=== PATIENT | female | born 1955 | race Caucasian/White ===

== ENCOUNTER 2022-12-29 15:04 | Outpatient (OUT) | payer OTHER, MEDICARE, SELFPAY ==
[2022-12-29 15:53] LABS: Estimated Average Glucose 229 mg/dL; Glycohemoglobin A1C 9.6 % (4.5-6.2)
== END 2022-12-29 15:05 ==
PROVIDERS: PCP Family Medicine; Visit Provider Family Medicine
DX: E11.9 Type 2 diabetes mellitus without complications (principal)
CPT/HCPCS: 36415; 83036

== ENCOUNTER 2022-12-29 15:15 | Outpatient (OUT) | payer OTHER, MEDICARE, SELFPAY ==
[2022-12-29 15:43] LABS: Erythrocyte Sedimentation Rate 11 mm/hr (<=30)
[2022-12-29 16:07] LABS: C Reactive Protein 0.4 mg/dL (<=1.0); Calcium 9.2 mg/dL (8.5-10.1); Estimated GFR (African America 55 (>=60); Estimated GFR (Non-African Ame 46 (>=60); Magnesium 1.7 mg/dL (1.8-2.4); Phosphorus 3.5 mg/dL (2.6-4.7)
== END 2022-12-29 15:16 ==
PROVIDERS: PCP Family Medicine
DX: E11.9 Type 2 diabetes mellitus without complications (principal); M15.0 Primary generalized (osteo)arthritis; M35.5 Multifocal fibrosclerosis; M31.6 Other giant cell arteritis; Z79.899 Other long term (current) drug therapy; M81.0 Age-related osteoporosis without current pathological fracture
CPT/HCPCS: 36415; 82310; 82565; 83036; 83735; 84100; 84520; 85652; 86140

== ENCOUNTER 2023-03-06 10:59 | Observation (INO) | payer OTHER, MEDICARE, SELFPAY ==
[2023-03-06] VITALS (30 sets, daily range): BP systolic 139–198; BP diastolic 76–98; PULSE 80–125; RESP 16–32; TEMP 36.5–36.8; O2SAT 95–100; BMI 20.9; BMI 20.6
--- NOTE | 2023-03-06 11:32 | ED_ITS ---
HPI - Weakness General Chief complaint: Weakness Stated complaint: WEAKNESS Time Seen by Provider: 03/06/23 11:32 Source: patient Mode of arrival: Wheelchair Limitations: no limitations History of Present Illness HPI Narrative: This document has been composed with a new electronic medical record and [employer] voice recognition system. This document may not fully inaccurately reflect the entirety of the patient encounter.this patient's here with her daughter and her both good historians. She is here because of increasing weakness and some shortness of breath. She recently just got out of the hospital while in [place]. She was in the hospital for several weeks with severe sepsis according to the daughter. She was intubated for quite a while. She is known to have recurring urinary tract infections because a urethral stenosis and she's under the care of Dr. Hogan here in [facility]. She has not been running a fever the last several days. She does not have any change in her sputum characteristics. She wears oxygen at 2 L, twenty-four hours a day. She does not have a history of sleep apnea that she knows of. She has not been told that she has pulmonary hypertension. She has one coronary stent placed about two years ago in her left anterior descending by [facility] cardiology. Related Data Home Medications Medication Instructions Recorded Confirmed aspirin 81 mg tablet,delayed 81 mg PO DAILY 03/06/23 03/06/23 release atorvastatin 40 mg tablet 40 mg PO DAILY 03/06/23 03/06/23 cholecalciferol (vitamin D3) 50 2,000 unit PO DAILY 03/06/23 03/06/23 mcg (2,000 unit) tablet (Vitamin D3) duloxetine 30 mg capsule,delayed 90 mg PO DAILY 03/06/23 03/06/23 release glipizide 5 mg tablet 5 mg PO DAILY 03/06/23 03/06/23 insulin glargine-yfgn 100 unit/mL 15 unit subcut BID 03/06/23 03/06/23 subcutaneous solution (Semglee (insulin glargine-yfgn)) metoprolol tartrate 25 mg tablet 25 mg PO DAILY 03/06/23 03/06/23 mirabegron 50 mg tablet,extended 50 mg PO DAILY 03/06/23 03/06/23 release 24 hr (Myrbetriq) omeprazole 40 mg capsule,delayed 40 mg PO BID 03/06/23 03/06/23 release Allergies Allergy/AdvReac Type Severity Reaction Status Date / Time azithromycin Allergy Severe Verified 03/06/23 11:05 [From Zithromax Z-Leonardo] Latex, Natural Rubber Allergy Severe Verified 03/06/23 11:05 [facility] Social History Smoking status: Former smoker Exam Constitutional Vital Signs, click to edit/add: Last Vital Signs Temp 97.7 F 03/06/23 11:05 Pulse 105 H 03/06/23 14:10 Resp 30 H 03/06/23 14:10 BP 181/97 H 03/06/23 14:00 Pulse Ox 98 03/06/23 14:10 O2 Del Method Nasal Cannula 03/06/23 11:42 O2 Flow Rate 2 03/06/23 11:42 Course Vital Signs Vital signs: Vital Signs Temperature 97.7 F 03/06/23 11:05 Pulse Rate 125 H 03/06/23 11:05 Respiratory Rate 24 03/06/23 11:05 Blood Pressure 198/95 H 03/06/23 11:05 Pulse Oximetry 95 03/06/23 11:05 Oxygen Delivery Method Room Air 03/06/23 11:05 Temperature 97.7 F 03/06/23 11:05 Pulse Rate 105 H 03/06/23 14:10 Respiratory Rate 30 H 03/06/23 14:10 Blood Pressure 181/97 H 03/06/23 14:00 Pulse Oximetry 98 03/06/23 14:10 Oxygen Delivery Method Nasal Cannula 03/06/23 11:42 Oxygen Delivery Flow Rate 2 03/06/23 11:42 MDM - Weakness MDM Narrative Medical decision making narrative: this patient, according to daughters been getting increasingly tired and sleepy with no energy at home. In fact she has another urinary tract infection. She is also diabetic. The last time she had an infection her daughter said within twelve hours she was in full-blown sepsis. Because of this I'm recommending admission for parenteral antibiotics and close observation. Today her white blood cell count is slightly elevated but her lactate is normal and she is not hypotensive or tachycardic. Case was discussed with the hospitalist Lab Data Labs: Lab Results 03/06/23 03/06/23 Range/Units 11:40 12:13 WBC 13.1 H (4.0-11.0) 10^3/uL RBC 3.72 L (4.20-5.40) 10^6/uL Hgb 10.9 L (12.0-16.0) g/dL Hct 34.2 L (36.0-48.0) % MCV 91.9 (81.0-99.0) fL MCH 29.3 (26.7-34.0) pg MCHC 31.9 (29.9-35.2) g/dL RDW 14.7 (11.0-15.0) % Plt Count 243 (150-450) 10^3/uL MPV 10.6 (9.5-13.5) fL Neut % (Auto) 76.3 H (43.0-75.0) % Lymph % (Auto) 9.9 L (20.5-60.0) % Hubbard % (Auto) 10.1 (1.7-12.0) % Eos % (Auto) 0.7 L (0.9-7.0) % Baso % (Auto) 0.5 (0.2-2.0) % Neut # (Auto) 10.0 H (1.4-6.5) 10^3/uL Lymph # (Auto) 1.3 (1.2-3.8) 10^3/uL Hubbard # (Auto) 1.3 H (0.3-0.8) 10^3/uL Eos # (Auto) 0.1 (0.0-0.7) 10^3/uL Baso # (Auto) 0.1 (0.0-0.1) 10^3/uL Abs Immat Gran (auto) 0.33 H (0.00-0.03) 10^3/uL Imm/Tot Granulo (auto) 2.5 H (0.0-0.5) % Sodium 138 (136-145) mmol/L Potassium 3.7 (3.5-5.1) mmol/L Chloride 100 (98-107) mmol/L Carbon Dioxide 31.2 (21.0-32.0) mmol/L Anion Gap 10.5 BUN 11.0 (7.0-18.0) mg/dL Creatinine 1.18 H (0.55-1.02) mg/dL Est GFR ( Amer) 56 L (>=60) Est GFR (Non-Af Amer) 46 L (>=60) BUN/Creatinine Ratio 9.3 Glucose 132 H (74-106) mg/dL Lactate 0.9 (0.4-2.0) mmol/L Calcium 8.3 L (8.5-10.1) mg/dL Total Bilirubin 0.5 (0.2-1.0) mg/dL AST 17 (15-37) U/L ALT 25 (14-59) U/L Alkaline Phosphatase 92 (46-116) U/L Troponin I High Sens 40.7 (4.0-51.3) pg/mL NT-Pro-B Natriuret Pep 322.0 (<=900.0) pg/mL Total Protein 6.5 (6.4-8.2) g/dL Albumin 2.3 L (3.4-5.0) g/dL Globulin 4.2 g/dL Albumin/Globulin Ratio 0.5 Urine Color Lt. yellow (YELLOW) Urine Clarity Sl cloudy (CLEAR) Urine pH 6.0 (5.0-9.0) Ur Specific [place] 1.010 (1.005-1.025) Urine Protein 30 A (NEG/TRACE) mg/dL Urine Glucose (UA) 100 A (NEGATIVE) mg/dL Urine Ketones Negative (NEGATIVE) mg/dL Urine Occult Blood Moderate A (NEGATIVE) Urine Nitrite Negative (NEGATIVE) Urine Bilirubin Negative (NEGATIVE) Urine Urobilinogen 0.2 (0.2-1.0) EU/dL Ur Leukocyte Esterase Moderate A (NEGATIVE) Urine RBC 10-20 A (0-2) #/HPF Urine WBC >100 A (NONE SEEN) #/HPF Ur Squamous Epith Cells Rare (NONE/RARE) #/LPF Urine Crystals None seen (None Seen) #/HPF Urine Bacteria Small A (NONE SEEN) #/HPF Urine Casts None seen (NONE SEEN) #/LPF Urine Mucus None seen (NONE SEEN) Ur Culture Indicated? Yes Discharge Plan Discharge Chief Complaint: Weakness Clinical Impression: Urinary tract infection Patient Disposition: Admitted as Observation Time of Disposition Decision: 14:15 Prescriptions / Home Meds: No Action atorvastatin 40 mg tablet 40 mg PO DAILY cholecalciferol (vitamin D3) [Vitamin D3] 50 mcg (2,000 unit) tablet 2,000 unit PO DAILY metoprolol tartrate 25 mg tablet 25 mg PO DAILY omeprazole 40 mg capsule,delayed release(DR/EC) 40 mg PO BID glipizide 5 mg tablet 5 mg PO DAILY insulin glargine-yfgn [Semglee(insulin glargine-yfgn)] 100 unit/mL solution 15 unit SUBCUT BID duloxetine 30 mg capsule,delayed release(DR/EC) 90 mg PO DAILY aspirin 81 mg tablet,delayed release (DR/EC) 81 mg PO DAILY Myrbetriq 50 mg tablet extended release 24 hr 50 mg PO DAILY Referrals: Erasto Henry MD [Primary Care Provider] - 1 week
--- NOTE | 2023-03-06 11:34 | XR_ITS ---
[place] [id number] Patient Name: SANDRA Easton COVERT MRN: [id number] date: 1955 Sex: F Assigned Patient Location: ER Current Patient Location: ER Accession/Order Number: [id number] Exam Date: 03/06/2023 12:00 Report Date: 03/06/2023 12:18 At the request of: YUE SERRANO Procedure: XR chest 1V TITLE: XR chest 1V COMPARISON: February [address] CLINICAL HISTORY: dyspnea TECHNIQUE: One view. FINDINGS: There is a normal cardiac and mediastinal contour. The pulmonary vascular pattern is normal. The lungs are clear. Mild scar and sutures in the upper lungs. There are no significant skeletal abnormalities. XR/XR chest 1V IMPRESSION: NO ACUTE RADIOGRAPHIC FINDINGS Electronically authenticated by: MANDA GONZALEZ Date: 03/06/2023 12:18
--- NOTE | 2023-03-06 11:34 | ECG_ITS ---
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
[2023-03-06 12:17] LABS: Basophils Absolute Auto 0.1 10^3/uL (0.0-0.1); Basophils Percent Auto 0.5 % (0.2-2.0); Eosinophils Absolute Auto 0.1 10^3/uL (0.0-0.7); Eosinophils Percent Auto 0.7 % (0.9-7.0); Hematocrit 34.2 % (36.0-48.0); Hemoglobin 10.9 g/dL (12.0-16.0); Immature Granulocytes Abs Auto 0.33 10^3/uL (0.00-0.03); Immature Granulocytes Pct Auto 2.5 % (0.0-0.5); Lymphocytes Absolute Auto 1.3 10^3/uL (1.2-3.8); Lymphocytes Percent Auto 9.9 % (20.5-60.0); Mean Corpuscular HGB Conc 31.9 g/dL (29.9-35.2); Mean Corpuscular Hemoglobin 29.3 pg (26.7-34.0); Mean Corpuscular Volume 91.9 fL (81.0-99.0); Mean Platelet Volume 10.6 fL (9.5-13.5); Monocytes Absolute Auto 1.3 10^3/uL (0.3-0.8); Monocytes Percent Auto 10.1 % (1.7-12.0); Neutrophils Percent Auto 76.3 % (43.0-75.0); Platelet Count 243 10^3/uL (150-450); Red Blood Count 3.72 10^6/uL (4.20-5.40); Red Cell Distribution Width 14.7 % (11.0-15.0); White Blood Count 13.1 10^3/uL (4.0-11.0)
[2023-03-06 12:27] LABS: Alanine Aminotransferase 25 U/L (14-59); Albumin Globulin Ratio 0.5; Albumin Level 2.3 g/dL (3.4-5.0); Alkaline Phosphatase 92 U/L (46-116); Anion Gap 10.5; Aspartate Amino Transferase 17 U/L (15-37); BUN Creatinine Ratio 9.3; Bilirubin Total 0.5 mg/dL (0.2-1.0); Calcium 8.3 mg/dL (8.5-10.1); Carbon Dioxide 31.2 mmol/L (21.0-32.0); Chloride 100 mmol/L (98-107); Estimated GFR (African America 56 (>=60); Estimated GFR (Non-African Ame 46 (>=60); Globulin 4.2 g/dL; Glucose 132 mg/dL (74-106); Potassium 3.7 mmol/L (3.5-5.1); Sodium 138 mmol/L (136-145); Total Protein 6.5 g/dL (6.4-8.2)
[2023-03-06 12:29] LABS: Lactate/Lactic Acid 0.9 mmol/L (0.4-2.0)
[2023-03-06 12:34] LABS: Troponin I High Sensitivity 40.7 pg/mL (4.0-51.3)
[2023-03-06 13:59] LABS: Bilirubin Urine NEGATIVE (NEGATIVE); Blood Urine MODERATE (NEGATIVE); Clarity Urine SL CLOUDY (CLEAR); Color Urine LT. YELLOW (YELLOW); Glucose Urine UA 100 mg/dL (NEGATIVE); Ketones Urine NEGATIVE (NEGATIVE); Leukocyte Esterase Urine MODERATE (NEGATIVE); Nitrite Urine NEGATIVE (NEGATIVE); Protein Urine 30 mg/dL (NEG/TRACE); Urobilinogen Urine 0.2 EU/dL (0.2-1.0)
[2023-03-06 14:01] LABS: Urine Microscopic Indicated YES
[2023-03-06 14:08] LABS: Bacteria Urine SMALL #/HPF (NONE SEEN); Crystals Seen? None Seen #/HPF (None Seen); Mucus Urine NONE SEEN (NONE SEEN); Squamous Epithelial Cell Urine RARE #/LPF (NONE/RARE); WBC Urine >100 #/HPF (NONE SEEN)
[2023-03-06 14:09] LABS: Cast Seen? NONE SEEN #/LPF (NONE SEEN); Urine Culture Indicated YES
--- NOTE | 2023-03-06 14:51 | PM.HP ---
H&P: HPI History of Present Illness Chief complaint: WEAKNESS UTI Narrative: patient is a 67-year-old female Medical history of oxygen dependent chronic obstructive pulmonary disease, steroid-induced hyperglycemia, history of urethral strictures causing recurrent urinary tract infections, hyperlipidemia, insomnia, hypertension and GERD. Per patient and Emergency Room physician patient was in a hospital for proximally three weeks in [place] where she was on a ventilator for urosepsis. She got home approximately seventeen days ago. She notes within the last 2-3 days she has become more weak. She denies any fevers chills occasional cramping of the bladder. She denies any blood in her urine or burning with urination. She says she has felt so weak and unsteady and she has gotten her walker helped. She lives at home alone and is usually able to complete her ADLs without issues. She is on chronic oxygen at 2 L nasal cannula continuous. She has been treated recently for her steroid-induced hyperglycemia and she has been using insulin and glipizide for this. 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 At the time of admission she just reports fatigue and some generalized weakness, no chest pain no shortness of breath fevers or chills. Review of Systems ROS Narrative ROS: a complete review of systems were reviewed with patient and are positive as below or listed in History of Chief Complaint. General: no fever, chills, night sweats Head: no headache, trauma, visual changes, nausea or vomiting Skin: no reported rashes, itching or sores Eyes: no blurriness of vision Ears: no reported hearing loss, vertigo, earache, or tinnitus Throat: no sore throat, hoarseness, swelling of neck, or tongue pain Heart: no chest pain Lungs: no shortness of breath or cough GI: no diarrhea or vomiting/nausea Urinary: no urinary urgency, frequency mild suprapubic tenderness Neuro: no numbness or tingling HEM: no bleeding issues or bruising ENDO: no thyroid problems Psych: no anxiety or depression [facility] Medical History (Updated 03/06/23 @ 15:47 by Jazmine Jung DO) Surgical History Family History Mother Family history of COPD (chronic obstructive pulmonary disease) Brother Family history of COPD (chronic obstructive pulmonary disease) Father Family history of COPD (chronic obstructive pulmonary disease) Family history of stroke Social History Within the past year, how often did you have a drink containing alcohol: never Score interpretation: A score less than 3 is consistent with normal alcohol consumption. Smoking status: Former smoker Non-prescribed substance use: denies use Previous occupational history: disabled Highest level of school completed/degree received: Associate degree: academic program Are you now , , , , never or living with a partner: Little interest or pleasure in doing things: not at all Feeling down, depressed, or hopeless: not at all Feel stressed/tense/nervous/anxious/difficulty sleeping: only a little Do you think of yourself as: straight/heterosexual Meds Home Medications and Allergies Home Medications Medication Instructions Recorded Confirmed Type aspirin 81 mg tablet,delayed 81 mg PO DAILY 03/06/23 03/06/23 History release atorvastatin 40 mg tablet 40 mg PO DAILY 03/06/23 03/06/23 History cholecalciferol (vitamin D3) 50 2,000 unit PO DAILY 03/06/23 03/06/23 History mcg (2,000 unit) tablet (Vitamin D3) duloxetine 30 mg capsule,delayed 90 mg PO DAILY 03/06/23 03/06/23 History release eszopiclone 3 mg tablet (Lunesta) 3 mg PO DAILY 03/06/23 03/06/23 History glipizide 5 mg tablet 5 mg PO DAILY 03/06/23 03/06/23 History insulin glargine-yfgn 100 unit/mL 15 unit subcut BID 03/06/23 03/06/23 History subcutaneous solution (Semglee (insulin glargine-yfgn)) melatonin 5 mg tablet 5 mg PO DAILY 03/06/23 03/06/23 History metoprolol tartrate 25 mg tablet 25 mg PO DAILY 03/06/23 03/06/23 History mirabegron 50 mg tablet,extended 50 mg PO DAILY 03/06/23 03/06/23 History release 24 hr (Myrbetriq) omeprazole 40 mg capsule,delayed 40 mg PO BID 03/06/23 03/06/23 History release pregabalin 300 mg capsule (Lyrica) 300 mg PO DAILY 03/06/23 03/06/23 History Allergies Allergy/AdvReac Type Severity Reaction Status Date / Time azithromycin Allergy Severe Verified 03/06/23 11:05 [From Zithromax Z-Leonardo] Latex, Natural Rubber Allergy Severe Verified 03/06/23 11:05 Exam Narrative Exam Narrative: General: Patient is alert, and oriented to person, place and time with normal affect, proper hygiene, appears much older than stated age Skin: no visible rashes, or ulcers Head: atraumatic, acephalic Eyes: PERRLA, no nystagmus present, conjunctiva clear, no scleral icterus Ears: normal gross auditory acuity Nose: symmetric, no discharge, no maxillary or frontal sinus tenderness Neck: no masses palpated, normal thyroid, no JVD or audible carotid bruits Heart: Normal rate and rhythm, no murmurs/rubs/gallops Lungs: no audible wheezes, crackles and normal breath sounds all lung conrad Abdomen: Normal audible bowel sounds, no distension, No palpable masses, no organomegaly, no rebound/guarding/ or rigidity Musculoskeletal: muscle atrophy noted, ROM is limited due to being in hospital bed, no swelling bilateral lower extremities Vascular: Normal carotid, radial, femoral, posterior tibial, and dorsalis pedis pulses Lymph: no supraclavicular, axillary, or anterior/posterior cervical adenopathy Neuro: CN II-X grossly intact, normal sensation upper and lower extremities Constitutional Vital Signs, click to edit/add: Last Vital Signs Temp 97.7 F 03/06/23 11:05 Pulse 105 H 03/06/23 14:10 Resp 30 H 03/06/23 14:10 BP 181/97 H 03/06/23 14:00 Pulse Ox 98 03/06/23 14:10 O2 Del Method Nasal Cannula 03/06/23 11:42 O2 Flow Rate 2 03/06/23 11:42 Results Labs Labs: Short CBC 03/06/23 Range/Units 11:40 WBC 13.1 H (4.0-11.0) 10^3/uL Hgb 10.9 L (12.0-16.0) g/dL Hct 34.2 L (36.0-48.0) % Plt Count 243 (150-450) 10^3/uL BMP 03/06/23 11:40 Sodium 138 Potassium 3.7 Chloride 100 Carbon Dioxide 31.2 BUN 11.0 Creatinine 1.18 H Glucose 132 H Calcium 8.3 L Liver Function 03/06/23 Range/Units 11:40 Total Bilirubin 0.5 (0.2-1.0) mg/dL AST 17 (15-37) U/L ALT 25 (14-59) U/L Alkaline Phosphatase 92 (46-116) U/L Albumin 2.3 L (3.4-5.0) g/dL Urine 03/06/23 Range/Units 12:13 Urine Color Lt. yellow (YELLOW) Urine Clarity Sl cloudy (CLEAR) Urine pH 6.0 (5.0-9.0) Ur Specific [place] 1.010 (1.005-1.025) Urine Protein 30 A (NEG/TRACE) mg/dL Urine Glucose (UA) 100 A (NEGATIVE) mg/dL Assessment and Plan Assessment and Plan (1) Acute cystitis without hematuria: Assessment and Plan: will place patient on IV Rocephin, urine culture pending (2) Leukocytosis: Assessment and Plan: we'll continue to monitor daily most likely from acute urinary tract infection also has recently been on steroids so could be steroid induced. (3) COPD (chronic obstructive pulmonary disease): Assessment and Plan: patient is on 2 L nasal cannula continuous is currently at baseline we'll continue home medications (4) Depression: Assessment and Plan: continue home medications (5) Acid reflux: Assessment and Plan: continue omeprazole (6) Urethral stenosis: Assessment and Plan: no acute symptoms at this time (7) Hyperglycemia, drug-induced: Assessment and Plan: we'll check fingersticks with each meal and at nighttime, sliding scale insulin as needed (8) Hyperlipidemia: Assessment and Plan: continue statin medication Plan patient is a full code Lovenox for deep vein thrombosis prophylaxis Patient is in observation status and is not expected to stay more than two days
[2023-03-06] MEDS: ENOXAPARIN SODIUM 40 MG/0.4 ML SYRINGE SUBQ (15:41)
[2023-03-06] MEDS: LACTATED RINGER'S SOLUTION 1,000 ML 125 ML IV ×2 (15:41→22:27)
[2023-03-06] MEDS: CEFTRIAXONE 1,000 MG in 0.9 % SODIUM CHLORIDE 50 ML 100 MG IV (16:58)
--- NOTE | 2023-03-06 19:32 | RESP.RT ---
No PRN breathing tx given.Pt denies need. Pt made aware to call if needed.
[2023-03-06 20:01] LABS: Glucometer 112 mg/dL (74-106)
[2023-03-06] MEDS: OMEPRAZOLE 40 MG CAPSULE.DR PO (20:13)
[2023-03-06] MEDS: IBUPROFEN 400 MG TABLET PO (20:13)
[2023-03-06] MEDS: METOPROLOL TARTRATE 25 MG TABLET 12.5 MG PO (20:14)
[2023-03-06] MEDS: ATORVASTATIN CALCIUM 40 MG TABLET PO (22:27)
[2023-03-06] MEDS: PREGABALIN 100 MG CAPSULE PO (22:27)
[2023-03-07] VITALS (17 sets, daily range): BP systolic 126–178; BP diastolic 74–99; PULSE 79–114; RESP 16–18; TEMP 36.4–36.9; O2SAT 95–97; BMI 20.5
--- NOTE | 2023-03-07 02:16 | PC.NURSE ---
urine mixed with stool
[2023-03-07] MEDS: CEFTRIAXONE 1,000 MG in 0.9 % SODIUM CHLORIDE 50 ML 100 MG IV ×2 (05:24→16:44)
[2023-03-07] MEDS: PREGABALIN 100 MG CAPSULE PO ×3 (05:25→22:10)
[2023-03-07 05:53] LABS: Basophils Absolute Auto 0.1 10^3/uL (0.0-0.1); Basophils Percent Auto 0.4 % (0.2-2.0); Eosinophils Absolute Auto 0.1 10^3/uL (0.0-0.7); Eosinophils Percent Auto 1.1 % (0.9-7.0); Hemoglobin 10.1 g/dL (12.0-16.0); Immature Granulocytes Abs Auto 0.31 10^3/uL (0.00-0.03); Immature Granulocytes Pct Auto 2.4 % (0.0-0.5); Lymphocytes Absolute Auto 1.3 10^3/uL (1.2-3.8); Lymphocytes Percent Auto 10.4 % (20.5-60.0); Mean Corpuscular HGB Conc 31.6 g/dL (29.9-35.2); Mean Corpuscular Hemoglobin 29.7 pg (26.7-34.0); Mean Corpuscular Volume 94.1 fL (81.0-99.0); Mean Platelet Volume 9.8 fL (9.5-13.5); Monocytes Absolute Auto 1.5 10^3/uL (0.3-0.8); Monocytes Percent Auto 11.3 % (1.7-12.0); Neutrophils Absolute Auto 9.5 10^3/uL (1.4-6.5); Neutrophils Percent Auto 74.4 % (43.0-75.0); Platelet Count 284 10^3/uL (150-450); Red Cell Distribution Width 14.7 % (11.0-15.0); White Blood Count 12.8 10^3/uL (4.0-11.0)
[2023-03-07 06:01] LABS: Alanine Aminotransferase 21 U/L (14-59); Albumin Globulin Ratio 0.5; Albumin Level 1.9 g/dL (3.4-5.0); Alkaline Phosphatase 80 U/L (46-116); Aspartate Amino Transferase 12 U/L (15-37); BUN Creatinine Ratio 9.7; Bilirubin Total 0.4 mg/dL (0.2-1.0); Carbon Dioxide 29.8 mmol/L (21.0-32.0); Chloride 105 mmol/L (98-107); Estimated GFR (African America 59 (>=60); Estimated GFR (Non-African Ame 48 (>=60); Globulin 3.9 g/dL; Glucose 80 mg/dL (74-106); Potassium 3.8 mmol/L (3.5-5.1); Sodium 140 mmol/L (136-145); Total Protein 5.8 g/dL (6.4-8.2)
[2023-03-07] MEDS: LACTATED RINGER'S SOLUTION 1,000 ML 125 ML IV ×3 (06:37→22:58)
--- NOTE | 2023-03-07 08:32 | P.PN_ITS ---
Progress Note: Subjective Subjective Interval history: patient is a 67-year-old female Medical history of oxygen dependent chronic obstructive pulmonary disease, steroid-induced hyperglycemia, history of urethral strictures causing recurrent urinary tract infections, hyperlipidemia, insomnia, hypertension and GERD. Per patient and Emergency Room physician patient was in a hospital for proximally three weeks in [place] where she was on a ventilator for urosepsis. She got home approximately seventeen days ago. She notes within the last 2-3 days she has become more weak. She denies any fevers chills occasional cramping of the bladder. She denies any blood in her urine or burning with urination. She says she has felt so weak and unsteady and she has gotten her walker helped. She lives at home alone and is usually able to complete her ADLs without issues. She is on chronic oxygen at 2 L nasal cannula continuous. She has been treated recently for her steroid-induced hyperglycemia and she has been using insulin and glipizide for this. 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 At the time of admission she just reports fatigue and some generalized weakness, no chest pain no shortness of breath fevers or chills. She overall feels slight improvement this morning. No nausea or vomiting but just reports headache overnight. Still no urinary symptoms reported. Exam Narrative Exam Narrative: General: Patient is alert, and oriented to person, place and time with normal affect, proper hygiene, appears much older than stated age Skin: no visible rashes, or ulcers Head: atraumatic, acephalic Eyes: PERRLA, no nystagmus present, conjunctiva clear, no scleral icterus Heart: Normal rate and rhythm, no murmurs/rubs/gallops Lungs: no audible wheezes, crackles and normal breath sounds all lung conrad Abdomen: Normal audible bowel sounds, no distension, No palpable masses, no organomegaly, no rebound/guarding/ or rigidity Musculoskeletal: muscle atrophy noted, ROM is limited due to being in hospital bed, no swelling bilateral lower extremities Vascular: Normal carotid, radial, femoral, posterior tibial, and dorsalis pedis pulses Lymph: no supraclavicular, axillary, or anterior/posterior cervical adenopathy Neuro: CN II-X grossly intact, normal sensation upper and lower extremities Constitutional Vital Signs, click to edit/add: Last Vital Signs Temp 98.0 F 03/07/23 04:11 Pulse 98 H 03/07/23 08:14 Resp 16 03/07/23 04:11 BP 126/74 03/07/23 04:11 Pulse Ox 97 03/07/23 04:11 O2 Del Method Nasal Cannula 03/07/23 04:11 O2 Flow Rate 2 03/07/23 04:11 Progress Note: Objective Labs Labs: Short CBC 03/06/23 03/07/23 Range/Units 11:40 05:37 WBC 13.1 H 12.8 H (4.0-11.0) 10^3/uL Hgb 10.9 L 10.1 L (12.0-16.0) g/dL Hct 34.2 L 32.0 L (36.0-48.0) % Plt Count 243 284 (150-450) 10^3/uL BMP 03/06/23 03/07/23 11:40 05:37 Sodium 138 140 Potassium 3.7 3.8 Chloride 100 105 Carbon Dioxide 31.2 29.8 BUN 11.0 11.0 Creatinine 1.18 H 1.13 H Glucose 132 H 80 Calcium 8.3 L 8.0 L Liver Function 03/06/23 03/07/23 Range/Units 11:40 05:37 Total Bilirubin 0.5 0.4 (0.2-1.0) mg/dL AST 17 12 L (15-37) U/L ALT 25 21 (14-59) U/L Alkaline Phosphatase 92 80 (46-116) U/L Albumin 2.3 L 1.9 L (3.4-5.0) g/dL Urine 03/06/23 Range/Units 12:13 Urine Color Lt. yellow (YELLOW) Urine Clarity Sl cloudy (CLEAR) Urine pH 6.0 (5.0-9.0) Ur Specific [place] 1.010 (1.005-1.025) Urine Protein 30 A (NEG/TRACE) mg/dL Urine Glucose (UA) 100 A (NEGATIVE) mg/dL Progress Note: A&P Assessment and Plan (1) Acute cystitis without hematuria: (2) Leukocytosis: (3) COPD (chronic obstructive pulmonary disease): (4) Depression: (5) Acid reflux: (6) Urethral stenosis: (7) Hyperglycemia, drug-induced: (8) Hyperlipidemia: Plan (1) Acute cystitis without hematuria: Assessment and Plan: will place patient on IV Rocephin, urine culture still pending; WBC's slight improvement today 12.8 (2) Leukocytosis: Assessment and Plan: continue to monitor daily most likely from acute urinary tract infection also has recently been on steroids so could be steroid induced but improvement today (3) COPD (chronic obstructive pulmonary disease): Assessment and Plan: patient is on 2 L nasal cannula continuous is currently at baseline will continue home medications, no change in status this morning (4) Depression: Assessment and Plan: continue home medications (5) Acid reflux: Assessment and Plan: continue omeprazole (6) Urethral stenosis: Assessment and Plan: no acute symptoms at this time (7) Hyperglycemia, drug-induced: Assessment and Plan: check fingersticks with each meal and at nighttime, sliding scale insulin as needed (8) Hyperlipidemia: Assessment and Plan: continue statin medication Plan patient is a full code Lovenox for deep vein thrombosis prophylaxis Patient is in observation status and is not expected to stay more than two days, awaiting pt/ot evaluation today.
[2023-03-07] MEDS: IBUPROFEN 400 MG TABLET PO ×2 (08:48→21:02)
[2023-03-07] MEDS: ACETAMINOPHEN 325 MG TABLET 650 MG PO ×2 (08:48→19:29)
[2023-03-07] MEDS: ENOXAPARIN SODIUM 40 MG/0.4 ML SYRINGE SUBQ (08:49)
[2023-03-07] MEDS: OXYBUTYNIN CHLORIDE 5 MG TAB XL 10 MG PO (08:49)
[2023-03-07] MEDS: DULOXETINE HCL 30 MG CAPSULE.DR 90 MG PO (08:51)
[2023-03-07] MEDS: ASPIRIN 81 MG TABLET.DR PO (08:51)
[2023-03-07] MEDS: GLIPIZIDE 5 MG TABLET PO (08:52)
[2023-03-07] MEDS: OMEPRAZOLE 40 MG CAPSULE.DR PO ×2 (08:52→21:02)
[2023-03-07] MEDS: METOPROLOL TARTRATE 25 MG TABLET 12.5 MG PO ×2 (08:52→21:02)
[2023-03-07] MEDS: VITAMIN D3 1 EACH PO (08:52)
--- NOTE | 2023-03-07 09:15 | CM.NOTE ---
Rounding with Dr. Jung and nurse Janet. Discussing possible discharge this afternoon if patient begins to feel better. Dr. Jung to re-evaluate this afternoon. Awaiting PT and OT evals.
--- NOTE | 2023-03-07 10:49 | SWNOTE1 ---
SW met with pt and pt's sister in room. Pt's sister was crying, SW attempted to comfort. Pt and pt's sister had some issues with a family member who had been flown to [facility]. SW, pt, and pt's sister all discussed what was going on with family member. SW spoke with pt about her living situation, she lives at home with her , her sister and pt's children are a good support as well. Pt does have a walker at home and she has home oxygen as well, 2 liters. Pt was at a point where she was not needing a walker until a few days ago. SW asked her about home health, she stated Dr. Henry was supposed to be setting her up with [facility]. SW to look in to this. At this time pt voices no other needs at discharge. Referral sent to [facility].
[2023-03-07 11:31] LABS: Glucometer 87 mg/dL (74-106)
--- NOTE | 2023-03-07 12:16 | SWNOTE1 ---
[facility] is not able to accept due to staffing. SW to let pt know.
--- NOTE | 2023-03-07 12:19 | SWNOTE1 ---
SW did call Dr. Henry's office and they have no sent any referrals anywhere for home health for pt.
--- NOTE | 2023-03-07 12:37 | SWNOTE1 ---
SW spoke with pt and pt's sister about [facility] not having staff. SW gave them a list from medicare.gov with star ratings for home health company. Pt decided on [facility] as first choice and Med as second choice. Referral sent to [facility].
--- NOTE | 2023-03-07 13:40 | US_ITS ---
The [address] [address] Patient Name: SANDRA Easton COVERT MRN: [id number] date: 1955 Sex: F Assigned Patient Location: Current Patient Location: Accession/Order Number: [id number] Exam Date: 03/07/2023 13:45 Report Date: 03/07/2023 14:32 At the request of: CLOTILDE GALVAN Procedure: US renal bladder Ultrasound kidneys, bilateral HISTORY: left flank pain, UTI COMPARISON: None. TECHNIQUE: Transabdominal ultrasound imaging of both kidneys was performed. FINDINGS: Both kidneys demonstrate normal echotexture and echogenicity. The right kidney measures 9.7 x 4.9 x 4.5 cm with cortical thinning to 0.8 cm. There is no hydronephrosis of right kidney. The left kidney measures 9.6 x 4.7 x 4.8 cm, with cortical thinning to 0.6 cm. No hydronephrosis of left kidney. No discrete renal lesion or renal stone is identified. The bladder is moderately distended with prevoid volume of 300 cc. There is mild bladder wall trabeculation. There is a small diverticulum along the lateral right bladder margin measuring 1.2 cm. Post void bladder volume is 87 cc. US/US renal bladder IMPRESSION: 1. Atrophic kidneys with cortical thinning. No hydronephrosis, discrete renal lesion or renal stone by ultrasound. 2. Large post void bladder volume of 87 cc, which correlates with a 29% postvoid bladder residual. There is bladder wall trabeculation and a small 1.2 cm right lateral bladder wall diverticulum. Electronically authenticated by: CONSUELO BARTON Date: 03/07/2023 14:32
--- NOTE | 2023-03-07 14:00 | SWNOTE1 ---
MARLENE called [facility] and they will review and see if they can accept insurance and will call back.
--- NOTE | 2023-03-07 14:24 | SWNOTE1 ---
[facility] not able to pull up insurance to verify and need copy of card, SW sent copy of insurance card.
[2023-03-07 14:34] LABS: Glucometer 52 mg/dL (74-106)
[2023-03-07 15:20] LABS: Glucometer 84 mg/dL (74-106)
--- NOTE | 2023-03-07 16:05 | SWNOTE1 ---
MARLENE called [facility] and they are still working on insurance. MARLENE to update patient.
--- NOTE | 2023-03-07 19:33 | RESP.RT ---
No PRN breathing tx given. Pt denies need. No respiratory distress noted. Pt made aware to call if needed.
[2023-03-07 22:09] LABS: Glucometer 158 mg/dL (74-106)
[2023-03-07] MEDS: ATORVASTATIN CALCIUM 40 MG TABLET PO (22:09)
[2023-03-07] MEDS: HYDRALAZINE HCL 20 MG/ML VIAL 10 MG IVP (22:23)
[2023-03-08] VITALS (10 sets, daily range): BP systolic 167; BP diastolic 79; PULSE 84–104; RESP 20; TEMP 36.8; O2SAT 96–97
[2023-03-08] MEDS: CEFTRIAXONE 1,000 MG in 0.9 % SODIUM CHLORIDE 50 ML 100 MG IV (04:57)
[2023-03-08] MEDS: IBUPROFEN 400 MG TABLET PO (05:04)
[2023-03-08] MEDS: ACETAMINOPHEN 325 MG TABLET 650 MG PO ×2 (05:05→10:38)
[2023-03-08 05:13] LABS: Basophils Percent Auto 0.3 % (0.2-2.0); Eosinophils Absolute Auto 0.1 10^3/uL (0.0-0.7); Eosinophils Percent Auto 0.8 % (0.9-7.0); Hematocrit 30.8 % (36.0-48.0); Hemoglobin 9.8 g/dL (12.0-16.0); Immature Granulocytes Abs Auto 0.15 10^3/uL (0.00-0.03); Immature Granulocytes Pct Auto 1.5 % (0.0-0.5); Lymphocytes Absolute Auto 0.9 10^3/uL (1.2-3.8); Lymphocytes Percent Auto 9.2 % (20.5-60.0); Mean Corpuscular HGB Conc 31.8 g/dL (29.9-35.2); Mean Corpuscular Hemoglobin 29.9 pg (26.7-34.0); Mean Corpuscular Volume 93.9 fL (81.0-99.0); Mean Platelet Volume 9.8 fL (9.5-13.5); Monocytes Absolute Auto 1.4 10^3/uL (0.3-0.8); Monocytes Percent Auto 13.8 % (1.7-12.0); Neutrophils Absolute Auto 7.6 10^3/uL (1.4-6.5); Neutrophils Percent Auto 74.4 % (43.0-75.0); Platelet Count 336 10^3/uL (150-450); Red Blood Count 3.28 10^6/uL (4.20-5.40); Red Cell Distribution Width 14.4 % (11.0-15.0); White Blood Count 10.2 10^3/uL (4.0-11.0)
[2023-03-08 05:38] LABS: Alanine Aminotransferase 21 U/L (14-59); Albumin Globulin Ratio 0.5; Albumin Level 2.1 g/dL (3.4-5.0); Alkaline Phosphatase 83 U/L (46-116); Aspartate Amino Transferase 17 U/L (15-37); BUN Creatinine Ratio 8.7; Bilirubin Total 0.3 mg/dL (0.2-1.0); Calcium 8.4 mg/dL (8.5-10.1); Carbon Dioxide 30.7 mmol/L (21.0-32.0); Chloride 105 mmol/L (98-107); Estimated GFR (African America >60 (>=60); Estimated GFR (Non-African Ame 53 (>=60); Globulin 4.1 g/dL; Glucose 126 mg/dL (74-106); Potassium 3.7 mmol/L (3.5-5.1); Sodium 142 mmol/L (136-145); Total Protein 6.2 g/dL (6.4-8.2)
[2023-03-08] MEDS: PREGABALIN 100 MG CAPSULE PO (06:21)
[2023-03-08 07:44] LABS: Glucometer 148 mg/dL (74-106)
[2023-03-08] MEDS: ONDANSETRON PF 4 MG/2 ML VIAL IV (08:27)
--- NOTE | 2023-03-08 08:42 | REH.PTDLY ---
Physical Therapy Daily Note PT Daily Note/Assess Start: 03/07/23 11:23 Freq: Status: Active Protocol: Document 03/08/23 08:30 MARS (Rec: 03/08/23 08:42 MARS [id number]) Physical Therapy Daily Note/Assessment Time In 07:15 Time Out 07:49 Subjective Just feeling tired, didn't sleep well. I'm all wet and need changed. I must've gone to the bathroom during the night. Therapeutic Exercise Minutes (minutes) 8 Therapeutic Exercise Units 1 Therapeutic Exercise Treatment Instructed in B LE seated exs 10x ea for improved strength. Exs included LAQ, AP, marches, and hip add. Pt fatigues with hip add. Therapeutic Activity Minutes (minutes) 16 Therapeutic Activity Units 1 Bed Mobility Ability Standby Assistance Chair Transfer Ability Standby Assistance Therapeutic Activity Comments Pt able to perform bed mobility SBA. Sit to stand transfers SBA. Pt able to doff and don new brief CGA, pt attempts to do this standing but cues for pt to sit down for safety. Pt gets nauseated and starts dry heaving, reports phlegm got caught in throat and that made her start coughing. Pt gets a nose bleed after coughing. States she feels better after a couple minutes. Pt transfers to and from commode SBA. Gait training with RW 20 feet CGA with pt becoming fatigued, sitting in chair. Total Therapy Minutes 24 Total Physical Therapy Units 2 Daily Note Summary Pt fatigues with rx, but reports she feels as though she had no sleep and this is contributing factor. Pt does well with transfers, gait limited due to fatigue level.
--- NOTE | 2023-03-08 09:06 | SWNOTE1 ---
SW received call from [facility] and they are in network. Pt still has $1700 out of pocket costs that has to be met before insurance pays 100%. SW to let pt know.
[2023-03-08] MEDS: METOPROLOL TARTRATE 25 MG TABLET 12.5 MG PO (09:50)
[2023-03-08] MEDS: DULOXETINE HCL 30 MG CAPSULE.DR 90 MG PO (09:50)
[2023-03-08] MEDS: OMEPRAZOLE 40 MG CAPSULE.DR PO (09:51)
[2023-03-08] MEDS: ASPIRIN 81 MG TABLET.DR PO (09:51)
[2023-03-08] MEDS: OXYBUTYNIN CHLORIDE 5 MG TAB XL 10 MG PO (09:51)
[2023-03-08] MEDS: ENOXAPARIN SODIUM 40 MG/0.4 ML SYRINGE SUBQ (09:52)
[2023-03-08] MEDS: VITAMIN D3 1 EACH PO (10:09)
--- NOTE | 2023-03-08 10:18 | SWNOTE1 ---
SW went over co-pay amount that [facility] called with, but also let pt know with her hospital visit from [place] and from here that she should meet her co-pay amount. Pt does feel she needs the home health and does want it. SW to send discharge orders over to Home health.
--- NOTE | 2023-03-08 10:33 | CM.NOTE ---
Rounds made with Dr. Jung. Plan for discharge today. [facility] set up after discharge.
--- NOTE | 2023-03-08 10:46 | PM.DS1 ---
DS: Providers Provider Date of admission: 03/06/23 14:46 Primary care physician: Erasto Henry MD Admitting clinician: Jazmine Jung Consults: 03/06/23 14:41 Occupational Therapy Eval and Treat Routine Reason for consultation: weakness Has provider been notified: No Physical Therapy Eval and Treat Routine Reason for consultation: weakness Has provider been notified: No Attending physician on discharge: Jazmine Jung DS: Diagnosis Discharge Diagnosis (1) Acute cystitis without hematuria: (2) Leukocytosis: (3) COPD (chronic obstructive pulmonary disease): (4) Depression: (5) Acid reflux: (6) Urethral stenosis: (7) Hyperglycemia, drug-induced: (8) Hyperlipidemia: DS: Summary Hospital Course Hospital Course: was placed on IV Rocephin, urine culture negative; WBC's normal range at the time of discharge. Will send home on cipro 500mg BID x 7 days. ultrasound of the kidneys was unremarkable accept a small bladder diverticulum which patient had been told prior by Dr. Abraham. Her COPD maintained baseline. Will still need continuous oxygen therapy at 2L NC. Sugars also started to run 50-60's at times without medication. She said she has recently stopped higher doses of prednisone and now on maintenance dose of 10mg daily. Stop all insulin and hold glipizide until follow up appt with PCP. She will be discharged home today with home health services. Status at Discharge Functional status at discharge: uses cane/walker Time Spent with Patient Time attestation: Total time spent providing and/or coordinating discharge services: Time spent: greater than 30 minutes Exam Narrative Exam Narrative: General: Patient is alert, and oriented to person, place and time with normal affect, proper hygiene, appears much older than stated age Skin: no visible rashes, or ulcers Head: atraumatic, acephalic Eyes: PERRLA, no nystagmus present, conjunctiva clear, no scleral icterus Heart: Normal rate and rhythm, no murmurs/rubs/gallops Lungs: no audible wheezes, crackles and normal breath sounds all lung conrad Abdomen: Normal audible bowel sounds, no distension, No palpable masses, no organomegaly, no rebound/guarding/ or rigidity Musculoskeletal: muscle atrophy noted, ROM is limited due to being in hospital bed, no swelling bilateral lower extremities Vascular: Normal carotid, radial, femoral, posterior tibial, and dorsalis pedis pulses Lymph: no supraclavicular, axillary, or anterior/posterior cervical adenopathy Neuro: CN II-X grossly intact, normal sensation upper and lower extremities Constitutional Vital Signs, click to edit/add: Last Vital Signs Temp 98.2 F 03/08/23 06:00 Pulse 104 H 03/08/23 10:13 Resp 20 03/08/23 08:00 BP 167/79 H 03/08/23 06:00 Pulse Ox 96 03/08/23 06:00 O2 Del Method Nasal Cannula 03/08/23 06:00 O2 Flow Rate 1 03/08/23 06:00 DS: Data Data Completed and Pending Labs on day of discharge: Labs from last 24 hours 03/08/23 03/08/23 03/07/23 07:42 04:24 22:07 WBC 10.2 RBC 3.28 L Hgb 9.8 L Hct 30.8 L MCV 93.9 MCH 29.9 MCHC 31.8 RDW 14.4 Plt Count 336 MPV 9.8 Neut % (Auto) 74.4 Lymph % (Auto) 9.2 L [place] % (Auto) 13.8 H Eos % (Auto) 0.8 L Baso % (Auto) 0.3 Neut # (Auto) 7.6 H Lymph # (Auto) 0.9 L [place] # (Auto) 1.4 H Eos # (Auto) 0.1 Baso # (Auto) 0.0 Abs Immat Gran (auto) 0.15 H Imm/Tot Granulo (auto) 1.5 H Sodium 142 Potassium 3.7 Chloride 105 Carbon Dioxide 30.7 Anion Gap 10.0 BUN 9.0 Creatinine 1.04 H Est GFR ( Amer) >60 Est GFR (Non-Af Amer) 53 L BUN/Creatinine Ratio 8.7 Glucose 126 H Calcium 8.4 L Total Bilirubin 0.3 AST 17 ALT 21 Alkaline Phosphatase 83 Total Protein 6.2 L Albumin 2.1 L Globulin 4.1 Albumin/Globulin Ratio 0.5 POC Glucose 148 H 158 H 03/07/23 03/07/23 03/07/23 15:18 14:31 11:28 WBC RBC Hgb Hct MCV MCH MCHC RDW Plt Count MPV Neut % (Auto) Lymph % (Auto) [place] % (Auto) Eos % (Auto) Baso % (Auto) Neut # (Auto) Lymph # (Auto) [place] # (Auto) Eos # (Auto) Baso # (Auto) Abs Immat Gran (auto) Imm/Tot Granulo (auto) Sodium Potassium Chloride Carbon Dioxide Anion Gap BUN Creatinine Est GFR ( Amer) Est GFR (Non-Af Amer) BUN/Creatinine Ratio Glucose Calcium Total Bilirubin AST ALT Alkaline Phosphatase Total Protein Albumin Globulin Albumin/Globulin Ratio POC Glucose 84 52 L 87 Discharge Plan Discharge Disposition: Home Health Service Discharge Medications: New ciprofloxacin HCl 500 mg tablet 500 mg PO BID 7 Days Qty: 14 0RF prednisone 10 mg tablet 10 mg PO DAILY 30 Days Qty: 30 0RF Continued atorvastatin 40 mg tablet 40 mg PO .QHS cholecalciferol (vitamin D3) [Vitamin D3] 50 mcg (2,000 unit) tablet 2,000 unit PO DAILY metoprolol tartrate 25 mg tablet 12.5 mg PO BID omeprazole 40 mg capsule,delayed release(DR/EC) 40 mg PO BID duloxetine 30 mg capsule,delayed release(DR/EC) 90 mg PO DAILY aspirin 81 mg tablet,delayed release (DR/EC) 81 mg PO DAILY Myrbetriq 50 mg tablet extended release 24 hr 50 mg PO DAILY eszopiclone [Lunesta] 3 mg tablet 3 mg PO DAILY melatonin 5 mg tablet 5 mg PO DAILY pregabalin [Lyrica] 100 mg capsule 100 mg PO TID Held glipizide 5 mg tablet 5 mg PO DAILY Hold Instructions: Resume on 03/22/23. 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 Forms: Portal Instructions Follow Up Appointments: Follow up appt. with Dr. Henry on Mar 20 @ 11am Office #: [phone]
--- NOTE | 2023-03-08 11:26 | SWNOTE1 ---
Discharge orders sent to [facility].
--- NOTE | 2023-03-13 10:46 | CM.DCFOLLOWU ---
Person spoke with: patient How are you feeling? I am feeling ok How is your pain? none Did you understand your discharge instructions? yes Do you have any questions about your discharge instructions? no Were you given any prescriptions at discharge? yes Were you able to get your prescriptions filled? yes Cipro and Prednisone Do you understand how to take your medications as ordered? yes Do you have any questions about your follow up appointment and do you plan to keep your follow up appointment? Dr. Henry 03/20 at 11am and I plan on keeping the appointment. Is there anything else that you would like to discuss? No. Home Health is coming to see me today. Questions/Comments/Concerns/Other: n/a
== END 2023-03-08 11:28 | disposition home health service (06) ==
LOC: ER 14:16 → MS 14:47
PROVIDERS: Admitting Provider Family Medicine; Emergency Provider Emergency Medicine Emergency Medical Services; PCP Family Medicine; Visit Provider Family Medicine
DX: N30.00 Acute cystitis without hematuria (principal); J44.9 Chronic obstructive pulmonary disease, unspecified; F32.A Depression, unspecified; K21.9 Gastro-esophageal reflux disease without esophagitis; N35.92 Unspecified urethral stricture, female; E78.5 Hyperlipidemia, unspecified; R73.9 Hyperglycemia, unspecified; Z99.81 Dependence on supplemental oxygen; T38.0X5A Adverse effect of glucocorticoids and synthetic analogues, initial encounter; I10 Essential (primary) hypertension; G47.00 Insomnia, unspecified; D72.829 Elevated white blood cell count, unspecified; R06.00 Dyspnea, unspecified; Z79.82 Long term (current) use of aspirin; Z79.899 Other long term (current) drug therapy; Z79.4 Long term (current) use of insulin; Z87.440 Personal history of urinary (tract) infections; Z87.891 Personal history of nicotine dependence
CPT/HCPCS: 36415; 71045; 76770; 80053; 80307; 80320; 81001; 82948; 83525; 83605; 83690; 83880; 84443; 84484; 85025; 85610; 87040; 87070; 87086; 87205; 93005; 94761; 96365; 96366; 96372; 96375; 97110; 97161; 97165; 97530; 97535; 99285; G0378

== ENCOUNTER 2023-03-20 11:57 | Outpatient (OUT) | payer OTHER, MEDICARE, SELFPAY ==
[2023-03-20 12:43] LABS: Hematocrit 35.4 % (36.0-48.0); Hemoglobin 11.3 g/dL (12.0-16.0); Mean Corpuscular HGB Conc 31.9 g/dL (29.9-35.2); Mean Corpuscular Hemoglobin 29.7 pg (26.7-34.0); Mean Corpuscular Volume 92.9 fL (81.0-99.0); Mean Platelet Volume 9.6 fL (9.5-13.5); Platelet Count 537 10^3/uL (150-450); Red Blood Count 3.81 10^6/uL (4.20-5.40); Red Cell Distribution Width 14.4 % (11.0-15.0); White Blood Count 19.1 10^3/uL (4.0-11.0)
[2023-03-20 12:48] LABS: Anion Gap 8.1; BUN Creatinine Ratio 9.6; Calcium 9.6 mg/dL (8.5-10.1); Carbon Dioxide 34.2 mmol/L (21.0-32.0); Chloride 100 mmol/L (98-107); Estimated GFR (African America 52 (>=60); Estimated GFR (Non-African Ame 43 (>=60); Glucose 243 mg/dL (74-106); Potassium 4.3 mmol/L (3.5-5.1); Sodium 138 mmol/L (136-145)
[2023-03-20 13:16] LABS: Bacteria Urine SMALL #/HPF (NONE SEEN); Mucus Urine NONE SEEN (NONE SEEN); Squamous Epithelial Cell Urine FEW #/LPF (NONE/RARE); WBC Urine 20-50 #/HPF (NONE SEEN)
[2023-03-20 13:30] LABS: Segmented Neut Absolute Manual 15.47 10^3/uL (1.4-6.5)
[2023-03-20 13:31] LABS: Band Neutrophils Absolute 0.6 10^3/uL (0.0-0.3); Eosinophils Absolute Manual 0.38 10^3/uL (0.00-0.70); Lymphocytes Absolute Manual 1.33 10^3/uL (1.20-3.80); Monocytes Absolute Manual 1.33 10^3/uL (0.30-0.80)
[2023-03-20 13:32] LABS: Poikilocytosis 1+; Tear Drop Cells 1+
== END 2023-03-20 11:58 | disposition home or self-care (01) ==
LOC: LAB 11:59
PROVIDERS: PCP Family Medicine; Visit Provider Family Medicine
DX: R30.0 Dysuria (principal); R53.83 Other fatigue; D50.9 Iron deficiency anemia, unspecified; Z51.81 Encounter for therapeutic drug level monitoring
CPT/HCPCS: 36415; 80048; 82728; 83540; 83550; 85027; 87086

== ENCOUNTER 2023-05-08 05:52 | Emergency (ER) | payer OTHER, MEDICARE, SELFPAY ==
[2023-05-08 05:55] VITALS: BP 132/98; PULSE 131; RESP 20; TEMP 36.6; O2SAT 97; BMI 21.8
--- NOTE | 2023-05-08 06:11 | PC.NURSE ---
Patient to ED after falling while walking to the bathroom in her home on Sunday. She reports that she has been having episodes where her legs will get shaky, then jerky, she will be unable to control her movements and then fall. She has fallen several times recently due to this same issue. She has tried getting an appointment with her PCP, but he is unable to see her until the middle of May. She has been taking Tylenol with no relief. Has no appetite, did not eat yesterday and vomited x1 this morning.
--- NOTE | 2023-05-08 06:13 | CT_ITS ---
The [address] [address] Patient Name: SANDRA Easton COVERT MRN: [facility]:[id number] date: 1955 Sex: F Assigned Patient Location: ED.MAIN Current Patient Location: ED.MAIN Accession/Order Number: [id number] Exam Date: 05/08/2023 06:30 Report Date: 05/08/2023 07:20 At the request of: MELLO MORENO Procedure: CT pelvis wo con CT scan the pelvis without contrast 05/08/2023. HISTORY: Low back pain radiating into the hips since a fall 4 days ago. COMPARISON: CT scan abdomen and pelvis 01/29/2023. TECHNIQUE: Multiple status axial CT images of the pelvis were obtained without contrast. Sagittal and coronal reformatted images were made. Dose reduction techniques were achieved by using automated exposure control and/or adjustment of mA and/or kV according to patient size and/or use of iterative reconstruction technique. FINDINGS: There are degenerative changes of the visualized lower lumbar spine. There are mild degenerative changes of the sacroiliac joints. No fracture of the pelvis or hips is seen. There are moderate to severe degenerative changes primarily involving the posterior aspects of the hip joints bilaterally. There is atherosclerotic calcification again seen of the distal abdominal aorta and common iliac arteries without evidence of aneurysmal dilatation. No free fluid is seen in the pelvis. No significant soft tissue hematoma is seen. CT/CT pelvis wo con IMPRESSION: 1. No fracture or dislocation is seen. 2. There are moderate to severe degenerative changes primarily involving the posterior aspects of the hip joints bilaterally. Electronically authenticated by: ANABEL MOLINA Date: 05/08/2023 07:20
--- NOTE | 2023-05-08 06:13 | CT_ITS ---
The [address] [address] Patient Name: SANDRA Easton COVERT MRN: [facility]:[id number] date: 1955 Sex: F Assigned Patient Location: ED.MAIN Current Patient Location: ED.MAIN Accession/Order Number: [id number] Exam Date: 05/08/2023 06:30 Report Date: 05/08/2023 07:27 At the request of: MELLO MORENO Procedure: CT lumbar spine wo con CT scan lumbar spine without contrast 05/08/2023. HISTORY: Low back pain radiating into the hips since a fall 4 days ago. COMPARISON: CT scan abdomen and pelvis 01/29/[address] scan of the chest 02/11/2023. TECHNIQUE: Multiple contiguous axial CT images of the lumbar spine were obtained without contrast. Sagittal and coronal reformatted images were made. Dose reduction techniques were achieved by using automated exposure control and/or adjustment of mA and/or kV according to patient size and/or use of iterative reconstruction technique. FINDINGS: When compared to the prior chest CT there is a similar appearance of a small amount of increased density layering within the posterior right pleural space. This appears stable. There is atherosclerotic calcification again seen of the abdominal aorta and common iliac arteries without evidence of aneurysmal dilatation. A remote mild compression deformity of the superior endplate of L1 with a moderate-sized Schmorl's node deformity in this region is again seen. There is evidence of a healing, nondisplaced fracture of the left L1 transverse process. Since the prior chest CT of 02/11/2023 there has been development of an acute compression fracture of the superior endplate of the T12 vertebral body with loss of 20% of vertebral body height. There is retropulsion of the posterosuperior aspect of T12 of 4 mm and this causes mild spinal canal stenosis. No other compression fracture is seen. There is mild discogenic disease again seen at the L3-L4 level. No significant spinal canal stenosis or foraminal narrowing of the lumbar spine is seen. There is multilevel facet joint arthropathy. This appears severe at the L5-S1 level. There are degenerative changes of the sacroiliac joints. CT/CT lumbar spine wo con IMPRESSION: 1. Since the prior chest CT of 02/11/2023 there has been development of an acute osteoporotic compression fracture of the superior endplate of T12 with loss of 20% of vertebral body height. There is retropulsion of the posterosuperior aspect of T12 of 4 mm causing mild spinal canal stenosis. No other acute compression fracture is seen. 2. There is evidence of a subacute, healing nondisplaced fracture of the left L1 transverse process. 3. There is a stable appearance of a remote mild compression deformity of the superior endplate of L1 4. There is no significant spinal canal stenosis or foraminal narrowing of the lumbar spine. Electronically authenticated by: ANABEL MOLINA Date: 05/08/2023 07:27
[2023-05-08 06:14] VITALS: O2SAT 97
--- NOTE | 2023-05-08 06:25 | ED_ITS ---
HPI - Back Pain/Injury General Chief Complaint: Back Pain/Injury Stated Complaint: BACK PAIN/ FALL Time Seen by Provider: 05/08/23 06:06 Source: patient Mode of arrival: Wheelchair Limitations: physical limitation History of Present Illness HPI Narrative: The patient is coming to the ER after she fell down almost 3 days ago Sunday night she mentioned that she fell backwards from standing position after her leg gave up because of a spasm and she has been dealing with that for a long time The patient also mentioned that she had a fall almost more than 2 weeks ago after which the spasm in her right leg got worse The patient mentioned that the pain is in her lower back with no radiation but there is pain in her right hip too Related Data Home Medications Medication Instructions Recorded Confirmed aspirin 81 mg tablet,delayed 81 mg PO DAILY 03/06/23 03/06/23 release atorvastatin 40 mg tablet 40 mg PO .QHS 03/06/23 03/06/23 cholecalciferol (vitamin D3) 50 2,000 unit PO DAILY 03/06/23 03/06/23 mcg (2,000 unit) tablet (Vitamin D3) duloxetine 30 mg capsule,delayed 90 mg PO DAILY 03/06/23 03/06/23 release eszopiclone 3 mg tablet (Lunesta) 3 mg PO DAILY 03/06/23 03/06/23 glipizide 5 mg tablet 5 mg PO DAILY 03/06/23 03/06/23 melatonin 5 mg tablet 5 mg PO DAILY 03/06/23 03/06/23 metoprolol tartrate 25 mg tablet 12.5 mg PO BID 03/06/23 03/06/23 mirabegron 50 mg tablet,extended 50 mg PO DAILY 03/06/23 03/06/23 release 24 hr (Myrbetriq) omeprazole 40 mg capsule,delayed 40 mg PO BID 03/06/23 03/06/23 release pregabalin 100 mg capsule (Lyrica) 100 mg PO TID 03/06/23 03/06/23 Previous Rx's Medication Instructions Recorded ciprofloxacin HCl 500 mg tablet 500 mg PO BID 7 days #14 tabs 03/08/23 prednisone 10 mg tablet 10 mg PO DAILY 30 days #30 tabs 03/08/23 Allergies Allergy/AdvReac Type Severity Reaction Status Date / Time azithromycin Allergy Severe Verified 03/06/23 11:05 [From Zithromax Z-Leonardo] Latex, Natural Rubber Allergy Severe Verified 03/06/23 11:05 Review of Systems ROS Status of ROS 10 or more systems reviewed and unremarkable except as noted in history and below [facility] Medical History (Updated 05/08/23 @ 06:45 by Sonya Zuniga MD) Acid reflux ?K21.9 - Gastro-esophageal reflux disease without esophagitis (ICD-10) Back pain ?M54.9 - Dorsalgia, unspecified (ICD-10) COPD (chronic obstructive pulmonary disease) ?J44.9 - Chronic obstructive pulmonary disease, unspecified (ICD-10) Depression ?F32.A - Depression, unspecified (ICD-10) History of oxygen administration ?Z99.81 - Dependence on supplemental oxygen (ICD-10) Hyperglycemia, drug-induced ?R73.9 - Hyperglycemia, unspecified (ICD-10) ?T50.905A - Adverse effect of unspecified drugs, medicaments and biological substances, initial encounter (ICD-10) Hyperlipidemia ?E78.5 - Hyperlipidemia, unspecified (ICD-10) Nerve pain ?M79.2 - Neuralgia and neuritis, unspecified (ICD-10) Sepsis ?A41.9 - Sepsis, unspecified organism (ICD-10) Thoracotomy scar of right chest ?L90.5 - Scar conditions and fibrosis of skin (ICD-10) Urethral stenosis UTI (urinary tract infection), bacterial ?N39.0 - Urinary tract infection, site not specified (ICD-10) ?A49.9 - Bacterial infection, unspecified (ICD-10) Surgical History Stented coronary artery ?Z95.5 - Presence of coronary angioplasty implant and graft (ICD-10) Family History Mother Family history of COPD (chronic obstructive pulmonary disease) Brother Family history of COPD (chronic obstructive pulmonary disease) Father Family history of COPD (chronic obstructive pulmonary disease) Family history of stroke Social History Within the past year, how often did you have a drink containing alcohol: never Score interpretation: A score less than 3 is consistent with normal alcohol consumption. Smoking status: Former smoker Non-prescribed substance use: denies use Previous occupational history: disabled Highest level of school completed/degree received: Associate degree: academic program Are you now , , , , never or living with a partner: Little interest or pleasure in doing things: not at all Feeling down, depressed, or hopeless: not at all Feel stressed/tense/nervous/anxious/difficulty sleeping: only a little Do you think of yourself as: straight/heterosexual Gender Identity: female Exam Narrative Exam Narrative: Nurses notes and vital signs reviewed and patient is not hypoxic. General: Well-appearing and in no apparent distress. Skin: Warm, dry, no pallor noted. No rash. Head: Normocephalic, atraumatic. Neck: Supple, non-tender. Eye: Pupils are equal, round and EOMI. No scleral icterus. Ears, Nose, Mouth, and Throat: TM are clear, no nasal mucosal hypertrophy. Oral mucosa is moist, no posterior oropharynx erythema, uvula is mid-line Cardiovascular: Regular Rate and Rhythm without murmur, gallop or rub. Respiratory: No accessory muscle use or respiratory distress. Lungs are clear to auscultation, no wheezing, rales or rhonchi Chest Wall: no tenderness Back: No midline thoracic or lumbar vertebral tenderness. The patient have bilateral paraspinal muscle tenderness as well as right iliac bone tenderness and she does not have any ecchymosis Musculoskeletal: normal ROM, no calf or popliteal tenderness, no lower extremity edema/swelling GI: Abdomen is soft, non-distended. Normal bowel sounds. No masses appreciated. No tenderness to palpation. No rebound, guarding, or rigidity noted. Neurological: A&O x4. No cranial nerve dysfunction observed. No truncal ataxia. Moves all extremities. Sensation intact. Psychiatric: Cooperative and interactive. Normal mood and affect. Constitutional Vital Signs, click to edit/add: Last Vital Signs Temp 97.8 F 05/08/23 05:55 Pulse 131 H 05/08/23 05:55 Resp 20 05/08/23 05:55 BP 132/98 H 05/08/23 05:55 Pulse Ox 97 05/08/23 06:14 O2 Del Method Nasal Cannula 05/08/23 06:14 O2 Flow Rate 2 05/08/23 06:14 Course Vital Signs Vital signs: Vital Signs Temperature 97.8 F 05/08/23 05:55 Pulse Rate 131 H 05/08/23 05:55 Respiratory Rate 20 05/08/23 05:55 Blood Pressure 132/98 H 05/08/23 05:55 Pulse Oximetry 97 05/08/23 05:55 Oxygen Delivery Method Nasal Cannula 05/08/23 05:55 Oxygen Delivery Flow Rate 2 05/08/23 05:55 Temperature 97.8 F 05/08/23 05:55 Pulse Rate 131 H 05/08/23 05:55 Respiratory Rate 20 05/08/23 05:55 Blood Pressure 132/98 H 05/08/23 05:55 Pulse Oximetry 97 05/08/23 06:14 Oxygen Delivery Method Nasal Cannula 05/08/23 06:14 Oxygen Delivery Flow Rate 2 05/08/23 06:14 MDM - Back Pain/Injury MDM Narrative Medical decision making narrative: The patient was provided with a Toradol and Norflex and she had a CT of her pelvis as well as her lumbar spine The patient care will be transferred to awaiting the results of the CAT scans The patient initially had elevated heart rates she did not use her oxygen initially which was 2 L evaluation after that shows that her heart rate is 107 Discharge Plan Discharge Patient Disposition: Still a Patient
[2023-05-08] MEDS: KETOROLAC TROMETHAMINE 30 MG/ML VIAL IM (06:50)
[2023-05-08] MEDS: ORPHENADRINE 60 MG/ 2 ML VIAL IM (06:51)
[2023-05-08 06:58] VITALS: PULSE 110; O2SAT 100
--- NOTE | 2023-05-08 07:42 | ED.BACK1 ---
HPI - Back Pain/Injury General Chief Complaint: Back Pain/Injury Stated Complaint: BACK PAIN/ FALL Time Seen by Provider: 05/08/23 06:06 Source: patient Mode of arrival: Wheelchair Limitations: physical limitation History of Present Illness HPI Narrative: the patient was initially seen by Dr. Zuniga. Please see her full history and physical. Related Data Home Medications Medication Instructions Recorded Confirmed aspirin 81 mg tablet,delayed 81 mg PO DAILY 03/06/23 03/06/23 release atorvastatin 40 mg tablet 40 mg PO .QHS 03/06/23 03/06/23 cholecalciferol (vitamin D3) 50 2,000 unit PO DAILY 03/06/23 03/06/23 mcg (2,000 unit) tablet (Vitamin D3) duloxetine 30 mg capsule,delayed 90 mg PO DAILY 03/06/23 03/06/23 release eszopiclone 3 mg tablet (Lunesta) 3 mg PO DAILY 03/06/23 03/06/23 glipizide 5 mg tablet 5 mg PO DAILY 03/06/23 03/06/23 melatonin 5 mg tablet 5 mg PO DAILY 03/06/23 03/06/23 metoprolol tartrate 25 mg tablet 12.5 mg PO BID 03/06/23 03/06/23 mirabegron 50 mg tablet,extended 50 mg PO DAILY 03/06/23 03/06/23 release 24 hr (Myrbetriq) omeprazole 40 mg capsule,delayed 40 mg PO BID 03/06/23 03/06/23 release pregabalin 100 mg capsule (Lyrica) 100 mg PO TID 03/06/23 03/06/23 Previous Rx's Medication Instructions Recorded ciprofloxacin HCl 500 mg tablet 500 mg PO BID 7 days #14 tabs 03/08/23 prednisone 10 mg tablet 10 mg PO DAILY 30 days #30 tabs 03/08/23 acetaminophen 300 mg-codeine 30 mg 1 tab PO Q6H PRN pain 5 days #20 05/08/23 tablet tabs Allergies Allergy/AdvReac Type Severity Reaction Status Date / Time azithromycin Allergy Severe Verified 03/06/23 11:05 [From Zithromax Z-Leonardo] Latex, Natural Rubber Allergy Severe Verified 03/06/23 11:05 [facility] Medical History (Updated 05/08/23 @ 07:41 by Matt Bond MD) Acid reflux ?K21.9 - Gastro-esophageal reflux disease without esophagitis (ICD-10) Back pain ?M54.9 - Dorsalgia, unspecified (ICD-10) COPD (chronic obstructive pulmonary disease) ?J44.9 - Chronic obstructive pulmonary disease, unspecified (ICD-10) Depression ?F32.A - Depression, unspecified (ICD-10) History of oxygen administration ?Z99.81 - Dependence on supplemental oxygen (ICD-10) Hyperglycemia, drug-induced ?R73.9 - Hyperglycemia, unspecified (ICD-10) ?T50.905A - Adverse effect of unspecified drugs, medicaments and biological substances, initial encounter (ICD-10) Hyperlipidemia ?E78.5 - Hyperlipidemia, unspecified (ICD-10) Nerve pain ?M79.2 - Neuralgia and neuritis, unspecified (ICD-10) Sepsis ?A41.9 - Sepsis, unspecified organism (ICD-10) Thoracotomy scar of right chest ?L90.5 - Scar conditions and fibrosis of skin (ICD-10) Urethral stenosis UTI (urinary tract infection), bacterial ?N39.0 - Urinary tract infection, site not specified (ICD-10) ?A49.9 - Bacterial infection, unspecified (ICD-10) Surgical History Stented coronary artery ?Z95.5 - Presence of coronary angioplasty implant and graft (ICD-10) Family History Mother Family history of COPD (chronic obstructive pulmonary disease) Brother Family history of COPD (chronic obstructive pulmonary disease) Father Family history of COPD (chronic obstructive pulmonary disease) Family history of stroke Social History Within the past year, how often did you have a drink containing alcohol: never Score interpretation: A score less than 3 is consistent with normal alcohol consumption. Smoking status: Former smoker Non-prescribed substance use: denies use Previous occupational history: disabled Highest level of school completed/degree received: Associate degree: academic program Are you now , , , , never or living with a partner: Little interest or pleasure in doing things: not at all Feeling down, depressed, or hopeless: not at all Feel stressed/tense/nervous/anxious/difficulty sleeping: only a little Do you think of yourself as: straight/heterosexual Gender Identity: female Exam Constitutional Vital Signs, click to edit/add: Last Vital Signs Temp 97.8 F 05/08/23 05:55 Pulse 110 H 05/08/23 06:58 Resp 20 05/08/23 05:55 BP 132/98 H 05/08/23 05:55 Pulse Ox 100 05/08/23 06:58 O2 Del Method Nasal Cannula 05/08/23 06:58 O2 Flow Rate 2 05/08/23 06:58 Course Vital Signs Vital signs: Vital Signs Temperature 97.8 F 05/08/23 05:55 Pulse Rate 131 H 05/08/23 05:55 Respiratory Rate 20 05/08/23 05:55 Blood Pressure 132/98 H 05/08/23 05:55 Pulse Oximetry 97 05/08/23 05:55 Oxygen Delivery Method Nasal Cannula 05/08/23 05:55 Oxygen Delivery Flow Rate 2 05/08/23 05:55 Temperature 97.8 F 05/08/23 05:55 Pulse Rate 110 H 05/08/23 06:58 Respiratory Rate 20 05/08/23 05:55 Blood Pressure 132/98 H 05/08/23 05:55 Pulse Oximetry 100 05/08/23 06:58 Oxygen Delivery Method Nasal Cannula 05/08/23 06:58 Oxygen Delivery Flow Rate 2 05/08/23 06:58 MDM - Back Pain/Injury MDM Narrative Medical decision making narrative: T12 compression fractures identified and she is referred to orthopedics and provided pain medication. Findings are discussed with the patient and her family. Differential Diagnosis Differential diagnosis: Likely other (lumbar fracture, compression fracture, pelvic fracture, fall) Imaging Data lumbar CT: Radiologist's impression: Procedure: CT lumbar spine wo con CT scan lumbar spine without contrast 05/08/2023. HISTORY: Low back pain radiating into the hips since a fall 4 days ago. COMPARISON: CT scan abdomen and pelvis 01/29/[address] scan of the chest 02/11/2023. TECHNIQUE: Multiple contiguous axial CT images of the lumbar spine were obtained without contrast. Sagittal and coronal reformatted images were made. Dose reduction techniques were achieved by using automated exposure control and/or adjustment of mA and/or kV according to patient size and/or use of iterative reconstruction technique. FINDINGS: When compared to the prior chest CT there is a similar appearance of a small amount of increased density layering within the posterior right pleural space. This appears stable. There is atherosclerotic calcification again seen of the abdominal aorta and common iliac arteries without evidence of aneurysmal dilatation. A remote mild compression deformity of the superior endplate of L1 with a moderate-sized Schmorl's node deformity in this region is again seen. There is evidence of a healing, nondisplaced fracture of the left L1 transverse process. Since the prior chest CT of 02/11/2023 there has been development of an acute compression fracture of the superior endplate of the T12 vertebral body with loss of 20% of vertebral body height. There is retropulsion of the posterosuperior aspect of T12 of 4 mm and this causes mild spinal canal stenosis. No other compression fracture is seen. There is mild discogenic disease again seen at the L3-L4 level. No significant spinal canal stenosis or foraminal narrowing of the lumbar spine is seen. There is multilevel facet joint arthropathy. This appears severe at the L5-S1 level. There are degenerative changes of the sacroiliac joints. IMPRESSION: 1. Since the prior chest CT of 02/11/2023 there has been development of an acute osteoporotic compression fracture of the superior endplate of T12 with loss of 20% of vertebral body height. There is retropulsion of the posterosuperior aspect of T12 of 4 mm causing mild spinal canal stenosis. No other acute compression fracture is seen. 2. There is evidence of a subacute, healing nondisplaced fracture of the left L1 transverse process. 3. There is a stable appearance of a remote mild compression deformity of the superior endplate of L1 4. There is no significant spinal canal stenosis or foraminal narrowing of the lumbar spine. Electronically authenticated by: ANABEL MOLINA Date: 05/08/2023 07:27 Discharge Plan Discharge Chief Complaint: Back Pain/Injury Clinical Impression: Fall, Compression fracture of thoracic vertebra Patient Disposition: Home, Self-Care Time of Disposition Decision: 07:38 Condition: Good Mode of Transportation: Private Vehicle Prescriptions / Home Meds: New acetaminophen-codeine 300-30 mg tablet 1 tab PO Q6H PRN (Reason: pain) 5 Days Qty: 20 0RF No Action atorvastatin 40 mg tablet 40 mg PO .QHS cholecalciferol (vitamin D3) [Vitamin D3] 50 mcg (2,000 unit) tablet 2,000 unit PO DAILY metoprolol tartrate 25 mg tablet 12.5 mg PO BID omeprazole 40 mg capsule,delayed release(DR/EC) 40 mg PO BID glipizide 5 mg tablet 5 mg PO DAILY Hold Instructions: Resume on 03/22/23. hold until follow up with pcp duloxetine 30 mg capsule,delayed release(DR/EC) 90 mg PO DAILY aspirin 81 mg tablet,delayed release (DR/EC) 81 mg PO DAILY Myrbetriq 50 mg tablet extended release 24 hr 50 mg PO DAILY eszopiclone [Lunesta] 3 mg tablet 3 mg PO DAILY melatonin 5 mg tablet 5 mg PO DAILY pregabalin [Lyrica] 100 mg capsule 100 mg PO TID ciprofloxacin HCl 500 mg tablet 500 mg PO BID 7 Days Qty: 14 0RF prednisone 10 mg tablet 10 mg PO DAILY 30 Days Qty: 30 0RF Instructions: Vertebral Compression Fracture (ED), Kyphoplasty (DC), Fall Prevention (ED) Additional Instructions: follow-up with Dr. Preciado Stand Alone Forms: Portal Instructions Referrals: Erasto Henry MD [Primary Care Provider] - 1 week
== END 2023-05-08 07:51 | disposition home or self-care (01) ==
PROVIDERS: Emergency Provider Emergency Medicine; PCP Family Medicine
DX: S22.089A Unspecified fracture of T11-T12 vertebra, initial encounter for closed fracture (principal); W10.9XXA Fall (on) (from) unspecified stairs and steps, initial encounter; Z79.82 Long term (current) use of aspirin; Z79.899 Other long term (current) drug therapy; Z91.81 History of falling; K21.9 Gastro-esophageal reflux disease without esophagitis; J44.9 Chronic obstructive pulmonary disease, unspecified; F32.A Depression, unspecified; Z99.81 Dependence on supplemental oxygen; E78.5 Hyperlipidemia, unspecified; M79.2 Neuralgia and neuritis, unspecified; Z87.440 Personal history of urinary (tract) infections; Z95.5 Presence of coronary angioplasty implant and graft; Z87.891 Personal history of nicotine dependence
CPT/HCPCS: 72131; 72192; 96372; 99284

== ENCOUNTER 2023-05-16 15:42 | Outpatient (OUT) | payer OTHER, MEDICARE, SELFPAY ==
[2023-05-16 16:04] LABS: Basophils Percent Auto 0.4 % (0.2-2.0); Eosinophils Absolute Auto 0.2 10^3/uL (0.0-0.7); Eosinophils Percent Auto 1.8 % (0.9-7.0); Hematocrit 37.2 % (36.0-48.0); Hemoglobin 12.1 g/dL (12.0-16.0); Immature Granulocytes Abs Auto 0.02 10^3/uL (0.00-0.03); Immature Granulocytes Pct Auto 0.2 % (0.0-0.5); Lymphocytes Absolute Auto 0.9 10^3/uL (1.2-3.8); Lymphocytes Percent Auto 9.9 % (20.5-60.0); Mean Corpuscular HGB Conc 32.5 g/dL (29.9-35.2); Mean Corpuscular Hemoglobin 28.8 pg (26.7-34.0); Mean Corpuscular Volume 88.6 fL (81.0-99.0); Mean Platelet Volume 8.6 fL (9.5-13.5); Monocytes Absolute Auto 0.9 10^3/uL (0.3-0.8); Monocytes Percent Auto 9.9 % (1.7-12.0); Neutrophils Percent Auto 77.8 % (43.0-75.0); Platelet Count 462 10^3/uL (150-450); Red Cell Distribution Width 13.1 % (11.0-15.0); White Blood Count 8.9 10^3/uL (4.0-11.0)
[2023-05-16 16:28] LABS: Alanine Aminotransferase 13 U/L (14-59); Albumin Globulin Ratio 0.6; Albumin Level 2.9 g/dL (3.4-5.0); Alkaline Phosphatase 144 U/L (46-116); Anion Gap 16.7; Aspartate Amino Transferase 22 U/L (15-37); BUN Creatinine Ratio 11.7; Bilirubin Total 0.3 mg/dL (0.2-1.0); Calcium 10.1 mg/dL (8.5-10.1); Chloride 91 mmol/L (98-107); Estimated GFR (African America >60 (>=60); Estimated GFR (Non-African Ame 54 (>=60); Globulin 4.6 g/dL; Glucose 127 mg/dL (74-106); Myoglobin 52 ng/mL (9-82); Potassium 3.7 mmol/L (3.5-5.1); Sodium 130 mmol/L (136-145); Total Protein 7.5 g/dL (6.4-8.2)
== END 2023-05-16 15:43 | disposition home or self-care (01) ==
LOC: LAB 15:45
PROVIDERS: PCP Family Medicine; Visit Provider Internal Medicine
DX: R25.2 Cramp and spasm (principal)
CPT/HCPCS: 36415; 80053; 82550; 82552; 83874; 85025

== ENCOUNTER 2023-05-25 08:31 | Outpatient (OUT) | payer OTHER, MEDICARE, SELFPAY ==
--- NOTE | 2023-05-25 08:36 | MR_ITS ---
The [address] [address] Patient Name: SANDRA Easton COVERT MRN: [facility]:[id number] date: 1955 Sex: F Assigned Patient Location: MRI Current Patient Location: LAB Accession/Order Number: [id number] Exam Date: 05/25/2023 08:45 Report Date: 05/25/2023 23:37 At the request of: MIGUE SERRANO Procedure: MR lumbar spine wo con EXAM: MR lumbar spine wo con HISTORY: Compression Fracture T12 S22.080A COMPARISON: CT lumbar spine 05/08/2023 TECHNIQUE: Multiplanar multi sequential MR images of the lumbar spine were acquired without IV contrast. FINDINGS: There is mild straightening of the normal lumbar lordotic curvature. There is an acute to subacute compression fracture along the superior endplate of T12 with a linear T1 hypointensity visualized and marrow edema with approximately a 25% reduction in height loss and a 5 mm bony retropulsion contributing to mild central canal narrowing at this level and mild abutment of the ventral cord. The remainder of the vertebral body heights are preserved. Lumbar spine alignment is maintained without evidence for spondylolisthesis. No abnormal marrow infiltrative lesions. Multilevel disc desiccation noted. Mild disc space narrowing at T12-L1 and L1-L2. Multilevel disc desiccation. The conus medullaris terminates at the L1 level. The conus appears normal in size and configuration. The central canal appears congenitally narrowed secondary to prominent dorsal epidural fat and shortened pedicles. T11-T12: 5 mm bony retropulsion contributes to mild central canal narrowing the central canal measuring 9 mm in AP diameter. Mild bilateral neuroforaminal narrowing visualized. T12-L1: No disc herniation/bulge visualized, the central canal and foramina are patent. Mild facet arthrosis. L1-L2: Minimal disc bulge, the central canal and bilateral neuroforamina are patent. L2-L3: No significant disc herniations/bulges visualized is patent. Facet arthrosis visualized with no significant neuroforaminal narrowing. L3-L4: No significant disc herniation/bulge is visualized, the central canal is patent. Facet arthrosis visualized with no significant neuroforaminal narrowing. L4-L5: No significant disc herniation/bulge visualized, the central canal is patent. Mild facet arthrosis and ligamentum flavum thickening visualized with mild bilateral neuroforaminal narrowing. L5-S1: No significant disc herniations/bulges visualized, the central canal is patent. Moderate bilateral facet arthropathy visualized with mild bilateral neuroforaminal narrowing. MR/MR lumbar spine wo con IMPRESSION: 1.There is an acute to subacute compression fracture along the superior endplate of T12 with a linear T1 hypointensity visualized and marrow edema with approximately a 25% reduction in height loss and a 5 mm bony retropulsion contributing to mild central canal narrowing at this level and mild abutment of the ventral cord. 2. 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 No significant disc herniations/bulges are visualized, no evidence for acquired high-grade central canal narrowing. Electronically authenticated by: JUS RANDLE Date: 05/25/2023 23:37
== END 2023-05-25 08:32 | disposition home or self-care (01) ==
LOC: MRI 08:31
PROVIDERS: PCP Family Medicine; Visit Provider Orthopaedic Surgery
DX: E87.1 Hypo-osmolality and hyponatremia (principal); S22.080A Wedge compression fracture of T11-T12 vertebra, initial encounter for closed fracture
CPT/HCPCS: 36415; 72148; 80048

== ENCOUNTER 2023-05-25 09:33 | Outpatient (OUT) | payer OTHER, MEDICARE, SELFPAY ==
[2023-05-25 10:52] LABS: BUN Creatinine Ratio 7.4; Calcium 9.2 mg/dL (8.5-10.1); Carbon Dioxide 28.7 mmol/L (21.0-32.0); Chloride 98 mmol/L (98-107); Estimated GFR (African America >60 (>=60); Estimated GFR (Non-African Ame 51 (>=60); Glucose 119 mg/dL (74-106); Potassium 3.7 mmol/L (3.5-5.1); Sodium 137 mmol/L (136-145)
== END 2023-05-25 09:34 | disposition home or self-care (01) ==
PROVIDERS: PCP Family Medicine; Visit Provider Internal Medicine
DX: E87.1 Hypo-osmolality and hyponatremia (principal)
CPT/HCPCS: 36415; 80048

== ENCOUNTER 2023-06-04 07:19 | Emergency (ER) | payer OTHER, MEDICARE, SELFPAY ==
[2023-06-04] VITALS (98 sets, daily range): BP systolic 97–154; BP diastolic 56–92; PULSE 90–128; RESP 12–37; TEMP 36.9; O2SAT 91–100; BMI 23.2
--- NOTE | 2023-06-04 07:51 | ED.GENADUL1 ---
HPI - General Adult General Chief complaint: Nausea/Vomiting/Diarrhea Stated complaint: ABDOMINAL PAIN/ GENERAL WEAKNESS Time Seen by Provider: 06/04/23 07:43 Source: patient Mode of arrival: ambulance Limitations: no limitations History of Present Illness HPI narrative: patient's here for evaluation of nausea and loose bowel movements. She states that around 2 AM this morning she started having nausea and vomiting. She also has had a number of loose stools but she does say there x-ray diarrhea. Additionally she says recently she's had severe discomfort with urination and burning. She is concerned about having sepsis because of past history urinary tract infections and sepsis this last summer when she was in [place]. She is not running a fever at home that she is aware of. She is not having a chest pain. She has severe chronic obstructive pulmonary disease but she has no respiratory complaints and said her breathing is normal today. She has history of coronary artery disease with history of stent in her left anterior descending performed at a hospital in [facility]. She denies any having a squeezing or pressure. She's not had any swelling of her legs. No other household members are sick with vomiting. Related Data Home Medications Medication Instructions Recorded Confirmed aspirin 81 mg tablet,delayed 81 mg PO DAILY 03/06/23 03/06/23 release atorvastatin 40 mg tablet 40 mg PO .QHS 03/06/23 03/06/23 cholecalciferol (vitamin D3) 50 2,000 unit PO DAILY 03/06/23 03/06/23 mcg (2,000 unit) tablet (Vitamin D3) duloxetine 30 mg capsule,delayed 90 mg PO DAILY 03/06/23 03/06/23 release eszopiclone 3 mg tablet (Lunesta) 3 mg PO DAILY 03/06/23 03/06/23 glipizide 5 mg tablet 5 mg PO DAILY 03/06/23 03/06/23 melatonin 5 mg tablet 5 mg PO DAILY 03/06/23 03/06/23 metoprolol tartrate 25 mg tablet 12.5 mg PO BID 03/06/23 03/06/23 mirabegron 50 mg tablet,extended 50 mg PO DAILY 03/06/23 03/06/23 release 24 hr (Myrbetriq) omeprazole 40 mg capsule,delayed 40 mg PO BID 03/06/23 03/06/23 release pregabalin 100 mg capsule (Lyrica) 100 mg PO TID 03/06/23 03/06/23 Previous Rx's Medication Instructions Recorded ciprofloxacin HCl 500 mg tablet 500 mg PO BID 7 days #14 tabs 03/08/23 prednisone 10 mg tablet 10 mg PO DAILY 30 days #30 tabs 03/08/23 acetaminophen 300 mg-codeine 30 mg 1 tab PO Q6H PRN pain 5 days #20 05/08/23 tablet tabs Allergies Allergy/AdvReac Type Severity Reaction Status Date / Time azithromycin Allergy Severe Verified 03/06/23 11:05 [From Zithromax Z-Leonardo] Latex, Natural Rubber Allergy Severe Verified 03/06/23 11:05 [facility] Medical History (Updated 06/04/23 @ 18:52 by Avinash Meredith MD) Acid reflux ?K21.9 - Gastro-esophageal reflux disease without esophagitis (ICD-10) Back pain ?M54.9 - Dorsalgia, unspecified (ICD-10) COPD (chronic obstructive pulmonary disease) ?J44.9 - Chronic obstructive pulmonary disease, unspecified (ICD-10) Depression ?F32.A - Depression, unspecified (ICD-10) History of oxygen administration ?Z99.81 - Dependence on supplemental oxygen (ICD-10) Hyperglycemia, drug-induced ?R73.9 - Hyperglycemia, unspecified (ICD-10) ?T50.905A - Adverse effect of unspecified drugs, medicaments and biological substances, initial encounter (ICD-10) Hyperlipidemia ?E78.5 - Hyperlipidemia, unspecified (ICD-10) Nerve pain ?M79.2 - Neuralgia and neuritis, unspecified (ICD-10) Sepsis ?A41.9 - Sepsis, unspecified organism (ICD-10) Thoracotomy scar of right chest ?L90.5 - Scar conditions and fibrosis of skin (ICD-10) Urethral stenosis UTI (urinary tract infection), bacterial ?N39.0 - Urinary tract infection, site not specified (ICD-10) ?A49.9 - Bacterial infection, unspecified (ICD-10) Surgical History Stented coronary artery ?Z95.5 - Presence of coronary angioplasty implant and graft (ICD-10) Family History Mother Family history of COPD (chronic obstructive pulmonary disease) Brother Family history of COPD (chronic obstructive pulmonary disease) Father Family history of COPD (chronic obstructive pulmonary disease) Family history of stroke Social History Within the past year, how often did you have a drink containing alcohol: never Score interpretation: A score less than 3 is consistent with normal alcohol consumption. Smoking status: Former smoker Non-prescribed substance use: denies use Previous occupational history: disabled Highest level of school completed/degree received: Associate degree: academic program Are you now , , , , never or living with a partner: Little interest or pleasure in doing things: not at all Feeling down, depressed, or hopeless: not at all Feel stressed/tense/nervous/anxious/difficulty sleeping: only a little Do you think of yourself as: straight/heterosexual Gender Identity: female Exam Narrative Exam Narrative: patient's awake alert a good historian actually. Pleasant. Denies any chest pain pressure or heaviness or shortness of breath. She did complain about that intense burning with urination. Constitutional she has no scleral icterus or evidence of pallor. I examination no conjunctivitis. Chest examination shows scattered rhonchi bilaterally. Heart sounds normal no history is for or murmur. Abdomen has diffuse tenderness but no peritoneal findings rebound or rigidity. Extremities have no edema phlebitis or evidence of deep vein thrombosis. Neurological she is intact with no focal findings or complaints. Skin integument is warm and dry. Constitutional Vital Signs, click to edit/add: Last Vital Signs Temp 98.4 F 06/04/23 07:25 Pulse 90 06/04/23 15:40 Resp 22 06/04/23 15:40 BP 110/63 06/04/23 15:30 Pulse Ox 97 06/04/23 15:40 O2 Del Method Nasal Cannula 06/04/23 07:30 O2 Flow Rate 2 06/04/23 07:25 Course Vital Signs Vital signs: Vital Signs Blood Pressure 154/80 H 06/04/23 07:22 Temperature 98.4 F 06/04/23 07:25 Pulse Rate 90 06/04/23 15:40 Respiratory Rate 22 06/04/23 15:40 Blood Pressure 110/63 06/04/23 15:30 Pulse Oximetry 97 11/27/23 15:40 Oxygen Delivery Method Nasal Cannula 06/04/23 07:30 Oxygen Delivery Flow Rate 2 06/04/23 07:25 Medical Decision Making MDM Narrative Medical decision making narrative: patient's laboratory findings show a minimally elevated troponin. Her potassium is low at 2.7. Urinalysis is suggestive of urinary tract infection. I believe this patient is going to benefit from inpatient care and supportive treatment.a repeat, 3rd, troponin level was done and is now decreasing. Her primary care doctor would still like her transferred for further evaluation. She will be given potassium. She is doing well here.she was reevaluated by myself several times. She feels like having a little bit of broth now is feeling good with no symptoms. As soon as there is a bed available until she'll be transferred Lab Data Labs: Lab Results 06/04/23 06/04/23 06/04/23 Range/Units 07:45 08:10 10:12 WBC 13.0 H (4.0-11.0) 10^3/uL RBC 4.63 (4.20-5.40) 10^6/uL Hgb 12.9 (12.0-16.0) g/dL Hct 41.1 (36.0-48.0) % MCV 88.8 (81.0-99.0) fL MCH 27.9 (26.7-34.0) pg MCHC 31.4 (29.9-35.2) g/dL RDW 13.1 (11.0-15.0) % Plt Count 694 H (150-450) 10^3/uL MPV 8.9 L (9.5-13.5) fL Neut % (Auto) 92.1 H (43.0-75.0) % Lymph % (Auto) 2.1 L (20.5-60.0) % [place] % (Auto) 5.1 (1.7-12.0) % Eos % (Auto) 0.1 L (0.9-7.0) % Baso % (Auto) 0.3 (0.2-2.0) % Neut # (Auto) 12.0 H (1.4-6.5) 10^3/uL Lymph # (Auto) 0.3 L (1.2-3.8) 10^3/uL [place] # (Auto) 0.7 (0.3-0.8) 10^3/uL Eos # (Auto) 0.0 (0.0-0.7) 10^3/uL Baso # (Auto) 0.0 (0.0-0.1) 10^3/uL Abs Immat Gran (auto) 0.04 H (0.00-0.03) 10^3/uL Imm/Tot Granulo (auto) 0.3 (0.0-0.5) % APTT 30.7 (22.3-36.2) sec Sodium 136 (136-145) mmol/L Potassium 2.7 L* (3.5-5.1) mmol/L Chloride 93 L (98-107) mmol/L Carbon Dioxide 27.9 (21.0-32.0) mmol/L Anion Gap 17.8 BUN 6.0 L (7.0-18.0) mg/dL Creatinine 1.09 H (0.55-1.02) mg/dL Est GFR ( Amer) >60 (>=60) Est GFR (Non-Af Amer) 50 L (>=60) BUN/Creatinine Ratio 5.5 Glucose 144 H (74-106) mg/dL Lactate 1.9 (0.4-2.0) mmol/L Calcium 9.8 (8.5-10.1) mg/dL Total Bilirubin 0.4 (0.2-1.0) mg/dL AST 22 (15-37) U/L ALT 12 L (14-59) U/L Alkaline Phosphatase 114 (46-116) U/L Troponin I High Sens 51.5 H* 77.7 H* (4.0-51.3) pg/mL Total Protein 7.4 (6.4-8.2) g/dL Albumin 2.8 L (3.4-5.0) g/dL Globulin 4.6 g/dL Albumin/Globulin Ratio 0.6 Lipase 21.0 (16.0-77.0) U/L Urine Color Lt. yellow (YELLOW) Urine Clarity Slightly cloudy A (CLEAR) Urine pH 6.0 (5.0-9.0) Ur Specific [place] 1.015 (1.005-1.025) Urine Protein Negative (NEG/TRACE) mg/dL Urine Glucose (UA) Negative (NEGATIVE) mg/dL Urine Ketones 40 A (NEGATIVE) mg/dL Urine Occult Blood Small A (NEGATIVE) Urine Nitrite Positive A (NEGATIVE) Urine Bilirubin Negative (NEGATIVE) Urine Urobilinogen 0.2 (0.2-1.0) EU/dL Ur Leukocyte Esterase Trace A (NEGATIVE) Urine RBC 0-2 (0-2) #/HPF Urine WBC 5-10 A (NONE SEEN) #/HPF Ur Squamous Epith Cells Rare (NONE/RARE) #/LPF Urine Crystals None seen (None Seen) #/HPF Urine Bacteria Small A (NONE SEEN) #/HPF Urine Casts None seen (NONE SEEN) #/LPF Urine Mucus None seen (NONE SEEN) Ur Culture Indicated? Yes 06/04/23 Range/Units 14:15 WBC (4.0-11.0) 10^3/uL RBC (4.20-5.40) 10^6/uL Hgb (12.0-16.0) g/dL Hct (36.0-48.0) % MCV (81.0-99.0) fL MCH (26.7-34.0) pg MCHC (29.9-35.2) g/dL RDW (11.0-15.0) % Plt Count (150-450) 10^3/uL MPV (9.5-13.5) fL Neut % (Auto) (43.0-75.0) % Lymph % (Auto) (20.5-60.0) % [place] % (Auto) (1.7-12.0) % Eos % (Auto) (0.9-7.0) % Baso % (Auto) (0.2-2.0) % Neut # (Auto) (1.4-6.5) 10^3/uL Lymph # (Auto) (1.2-3.8) 10^3/uL [place] # (Auto) (0.3-0.8) 10^3/uL Eos # (Auto) (0.0-0.7) 10^3/uL Baso # (Auto) (0.0-0.1) 10^3/uL Abs Immat Gran (auto) (0.00-0.03) 10^3/uL Imm/Tot Granulo (auto) (0.0-0.5) % APTT (22.3-36.2) sec Sodium (136-145) mmol/L Potassium (3.5-5.1) mmol/L Chloride (98-107) mmol/L Carbon Dioxide (21.0-32.0) mmol/L Anion Gap BUN (7.0-18.0) mg/dL Creatinine (0.55-1.02) mg/dL Est GFR ( Amer) (>=60) Est GFR (Non-Af Amer) (>=60) BUN/Creatinine Ratio Glucose (74-106) mg/dL Lactate (0.4-2.0) mmol/L Calcium (8.5-10.1) mg/dL Total Bilirubin (0.2-1.0) mg/dL AST (15-37) U/L ALT (14-59) U/L Alkaline Phosphatase (46-116) U/L Troponin I High Sens 62.0 H* (4.0-51.3) pg/mL Total Protein (6.4-8.2) g/dL Albumin (3.4-5.0) g/dL Globulin g/dL Albumin/Globulin Ratio Lipase (16.0-77.0) U/L Urine Color (YELLOW) Urine Clarity (CLEAR) Urine pH (5.0-9.0) Ur Specific [place] (1.005-1.025) Urine Protein (NEG/TRACE) mg/dL Urine Glucose (UA) (NEGATIVE) mg/dL Urine Ketones (NEGATIVE) mg/dL Urine Occult Blood (NEGATIVE) Urine Nitrite (NEGATIVE) Urine Bilirubin (NEGATIVE) Urine Urobilinogen (0.2-1.0) EU/dL Ur Leukocyte Esterase (NEGATIVE) Urine RBC (0-2) #/HPF Urine WBC (NONE SEEN) #/HPF Ur Squamous Epith Cells (NONE/RARE) #/LPF Urine Crystals (None Seen) #/HPF Urine Bacteria (NONE SEEN) #/HPF Urine Casts (NONE SEEN) #/LPF Urine Mucus (NONE SEEN) Ur Culture Indicated? Discharge Plan Discharge Chief Complaint: Nausea/Vomiting/Diarrhea Clinical Impression: Urinary tract infection, Non-ST elevated myocardial infarction (non-STEMI) Patient Disposition: Xfer Acute Care Hospital Condition: Fair Prescriptions / Home Meds: No Action atorvastatin 40 mg tablet 40 mg PO .QHS cholecalciferol (vitamin D3) [Vitamin D3] 50 mcg (2,000 unit) tablet 2,000 unit PO DAILY metoprolol tartrate 25 mg tablet 12.5 mg PO BID omeprazole 40 mg capsule,delayed release(DR/EC) 40 mg PO BID glipizide 5 mg tablet 5 mg PO DAILY Hold Instructions: Resume on 03/22/23. hold until follow up with pcp duloxetine 30 mg capsule,delayed release(DR/EC) 90 mg PO DAILY aspirin 81 mg tablet,delayed release (DR/EC) 81 mg PO DAILY Myrbetriq 50 mg tablet extended release 24 hr 50 mg PO DAILY eszopiclone [Lunesta] 3 mg tablet 3 mg PO DAILY melatonin 5 mg tablet 5 mg PO DAILY pregabalin [Lyrica] 100 mg capsule 100 mg PO TID ciprofloxacin HCl 500 mg tablet 500 mg PO BID 7 Days Qty: 14 0RF prednisone 10 mg tablet 10 mg PO DAILY 30 Days Qty: 30 0RF acetaminophen-codeine 300-30 mg tablet 1 tab PO Q6H PRN (Reason: pain) 5 Days Qty: 20 0RF Referrals: Erasto Henry MD [Primary Care Provider] - 1 week
--- NOTE | 2023-06-04 08:16 | PC.NURSE ---
Straight cath for urine obtained at this time maintaining sterile technique. urine clear, yellow. specimen sent to lab. patient tolerated with minimal discomfort
--- NOTE | 2023-06-04 08:21 | XR_ITS ---
The [address] [address] Patient Name: SANDRA Easton COVERT MRN: [id number] date: 1955 Sex: F Assigned Patient Location: ER Current Patient Location: ER Accession/Order Number: [id number] Exam Date: 06/04/2023 08:46 Report Date: 06/04/2023 09:12 At the request of: YUE SERRANO Procedure: XR chest 1V EXAMINATION: XR chest 1V HISTORY: cough , vomiting COMPARISON: XR chest 03/06/2023 FINDINGS: LUNGS: Hyperexpanded lungs with mild opacities and stranding within right lung base obscuring the heart and diaphragm margin. Lung sutures projecting over right and left apex. VASCULATURE: No increased pulmonary vasculature. PLEURA: Small right pleural effusion. CARDIAC: No cardiomegaly or cardiac silhouette abnormality. MEDIASTINUM: No visible mass or adenopathy. BONES: No fracture or visible bone lesion. OTHER: Negative. XR/XR chest 1V IMPRESSION: 1. Small right pleural effusion and mild right basilar infiltrates versus atelectasis; new since prior study. 2. Stable chronic changes. Electronically authenticated by: MIGUE REYNOSO Date: 06/04/2023 09:12
[2023-06-04] MEDS: 0.9 % SODIUM CHLORIDE 1,000 ML 999 ML IV (08:24)
[2023-06-04] MEDS: ONDANSETRON PF 4 MG/2 ML VIAL IV (08:25)
[2023-06-04 08:45] LABS: Bilirubin Urine NEGATIVE (NEGATIVE); Blood Urine SMALL (NEGATIVE); Color Urine LT. YELLOW (YELLOW); Glucose Urine UA NEGATIVE (NEGATIVE); Ketones Urine 40 mg/dL (NEGATIVE); Leukocyte Esterase Urine TRACE (NEGATIVE); Nitrite Urine POSITIVE (NEGATIVE); Protein Urine NEGATIVE (NEG/TRACE); Specific Gravity Urine 1.015 (1.005-1.025); Urobilinogen Urine 0.2 EU/dL (0.2-1.0)
[2023-06-04 08:46] LABS: Clarity Urine SLIGHTLY CLOUDY (CLEAR); Urine Microscopic Indicated YES
[2023-06-04 08:53] LABS: Bacteria Urine SMALL #/HPF (NONE SEEN); Cast Seen? NONE SEEN #/LPF (NONE SEEN); Crystals Seen? None Seen #/HPF (None Seen); Mucus Urine NONE SEEN (NONE SEEN); RBC Urine 0-2 #/HPF (0-2); Squamous Epithelial Cell Urine RARE #/LPF (NONE/RARE)
[2023-06-04 08:54] LABS: Urine Culture Indicated YES
[2023-06-04 09:14] LABS: Lactate/Lactic Acid 1.9 mmol/L (0.4-2.0)
[2023-06-04 09:28] LABS: Basophils Percent Auto 0.3 % (0.2-2.0); Eosinophils Percent Auto 0.1 % (0.9-7.0); Hematocrit 41.1 % (36.0-48.0); Hemoglobin 12.9 g/dL (12.0-16.0); Immature Granulocytes Abs Auto 0.04 10^3/uL (0.00-0.03); Immature Granulocytes Pct Auto 0.3 % (0.0-0.5); Lymphocytes Absolute Auto 0.3 10^3/uL (1.2-3.8); Lymphocytes Percent Auto 2.1 % (20.5-60.0); Mean Corpuscular HGB Conc 31.4 g/dL (29.9-35.2); Mean Corpuscular Hemoglobin 27.9 pg (26.7-34.0); Mean Corpuscular Volume 88.8 fL (81.0-99.0); Mean Platelet Volume 8.9 fL (9.5-13.5); Monocytes Absolute Auto 0.7 10^3/uL (0.3-0.8); Monocytes Percent Auto 5.1 % (1.7-12.0); Neutrophils Percent Auto 92.1 % (43.0-75.0); Platelet Count 694 10^3/uL (150-450); Red Blood Count 4.63 10^6/uL (4.20-5.40); Red Cell Distribution Width 13.1 % (11.0-15.0)
[2023-06-04 09:43] LABS: Alanine Aminotransferase 12 U/L (14-59); Albumin Globulin Ratio 0.6; Albumin Level 2.8 g/dL (3.4-5.0); Alkaline Phosphatase 114 U/L (46-116); Anion Gap 17.8; Aspartate Amino Transferase 22 U/L (15-37); BUN Creatinine Ratio 5.5; Bilirubin Total 0.4 mg/dL (0.2-1.0); Calcium 9.8 mg/dL (8.5-10.1); Carbon Dioxide 27.9 mmol/L (21.0-32.0); Chloride 93 mmol/L (98-107); Estimated GFR (African America >60 (>=60); Estimated GFR (Non-African Ame 50 (>=60); Globulin 4.6 g/dL; Glucose 144 mg/dL (74-106); Sodium 136 mmol/L (136-145); Total Protein 7.4 g/dL (6.4-8.2)
[2023-06-04 09:47] LABS: Potassium 2.7 mmol/L (3.5-5.1); Troponin I High Sensitivity 51.5 pg/mL (4.0-51.3)
[2023-06-04] MEDS: POTASSIUM CHLORIDE 10 MEQ ER TABLET 20 MEQ PO (10:27)
[2023-06-04] MEDS: LEVOFLOXACIN IN DEXTROSE 5 % 500 MG/100 ML PIGGYBACK 100 MG IV (10:27)
--- NOTE | 2023-06-04 10:34 | PC.NURSE ---
Patient family at bedside reports patient is supposed to take magnesium, potassium, and lasix daily but does not.
[2023-06-04 10:37] LABS: Troponin I High Sensitivity 77.7 pg/mL (4.0-51.3)
[2023-06-04] MEDS: HEPARIN SODIUM,PORCINE/D5W 25,000 UNIT/500 ML IV.SOLN 14 UNIT IV (11:52)
[2023-06-04] MEDS: HEPARIN SODIUM (PORCINE) 5,000 UNIT/ML VIAL 3700 UNIT IV (11:55)
[2023-06-04 12:35] LABS: Partial Thromboplastin Time 30.7 sec (22.3-36.2)
--- NOTE | 2023-06-04 12:53 | ECG_ITS ---
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
--- NOTE | 2023-06-04 12:57 | ECG_ITS ---
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
--- NOTE | 2023-06-04 12:57 | ECG_ITS ---
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
[2023-06-04] MEDS: OXYCODONE HCL/ACETAMINOPHEN 5MG/325MG 1 TAB PO (16:48)
--- NOTE | 2023-06-04 16:53 | PC.NURSE ---
Patient medicated with percocet at this time for chronic back pain. patient denies further needs
--- NOTE | 2023-06-04 18:47 | PC.NURSE ---
ptt 139. heparin paused at this time. lab requested to redraw to confirm level.
[2023-06-04 19:51] LABS: Partial Thromboplastin Time 93.2 sec (22.3-36.2)
--- NOTE | 2023-06-04 22:23 | PC.NURSE ---
Bedside report given to [facility], paperwork provided. Pt verbalized understanding of transfer to [facility].
[2023-06-04 23:00] LABS: A. calcoaceticus-baumannii Cpx NOT DETECTED (NOT DETECTE); Bacteroides fragilis NOT DETECTED (NOT DETECTE); Candida albicans NOT DETECTED (NOT DETECTE); Candida auris NOT DETECTED (NOT DETECTE); Candida glabrata NOT DETECTED (NOT DETECTE); Candida krusei NOT DETECTED (NOT DETECTE); Candida parapsilosis NOT DETECTED (NOT DETECTE); Candida tropicalis NOT DETECTED (NOT DETECTE); Cryptococcus neoformans/gattii NOT DETECTED (NOT DETECTE); Enterobacter cloacae complex NOT DETECTED (NOT DETECTE); Enterobacterales NOT DETECTED (NOT DETECTE); Enterococcus faecalis NOT DETECTED (NOT DETECTE); Enterococcus faecium NOT DETECTED (NOT DETECTE); Haemophilus influenzae NOT DETECTED (NOT DETECTE); Klebsiella aerogenes NOT DETECTED (NOT DETECTE); Klebsiella pneumoniae group NOT DETECTED (NOT DETECTE); Listeria monocytogenes NOT DETECTED (NOT DETECTE); Neisseria meningitidis NOT DETECTED (NOT DETECTE); Proteus spp. NOT DETECTED (NOT DETECTE); Pseudomonas aeruginosa NOT DETECTED (NOT DETECTE); Salmonella spp. NOT DETECTED (NOT DETECTE); Serratia marcescens NOT DETECTED (NOT DETECTE); Staphylococcus epidermidis NOT DETECTED (NOT DETECTE); Staphylococcus lugdunensis NOT DETECTED (NOT DETECTE); Staphylococcus spp. NOT DETECTED (NOT DETECTE); Stenotrophomonas maltophilia NOT DETECTED (NOT DETECTE); Streptococcus agalactiae NOT DETECTED (NOT DETECTE); Streptococcus pyogenes NOT DETECTED (NOT DETECTE)
[2023-06-05 00:19] LABS: Streptococcus pneumoniae DETECTED (NOT DETECTE); Streptococcus spp. DETECTED (NOT DETECTE)
== END 2023-06-04 22:32 | disposition short-term general hospital (02) ==
PROVIDERS: Emergency Provider Emergency Medicine Emergency Medical Services; PCP Family Medicine
DX: I21.4 Non-ST elevation (NSTEMI) myocardial infarction (principal); N39.0 Urinary tract infection, site not specified; Z87.440 Personal history of urinary (tract) infections; Z79.82 Long term (current) use of aspirin; Z79.899 Other long term (current) drug therapy; K21.9 Gastro-esophageal reflux disease without esophagitis; J44.9 Chronic obstructive pulmonary disease, unspecified; F32.A Depression, unspecified; Z99.81 Dependence on supplemental oxygen; E78.5 Hyperlipidemia, unspecified; Z95.5 Presence of coronary angioplasty implant and graft; Z87.891 Personal history of nicotine dependence
CPT/HCPCS: 36415; 71045; 80053; 81001; 83605; 83690; 84484; 85025; 85730; 87040; 87086; 87150; 87186; 93005; 96365; 96366; 96368; 96375; 96376; 99285

== ENCOUNTER 2023-06-12 11:22 | Outpatient (OUT) | payer OTHER, MEDICARE, SELFPAY ==
[2023-06-12 13:28] LABS: Estimated Average Glucose 171 mg/dL; Glycohemoglobin A1C 7.6 % (4.5-6.2)
== END 2023-06-12 11:23 | disposition home or self-care (01) ==
PROVIDERS: PCP Family Medicine; Visit Provider Family Medicine
DX: E11.65 Type 2 diabetes mellitus with hyperglycemia (principal)
CPT/HCPCS: 36415; 83036

== ENCOUNTER 2023-06-27 15:07 | Outpatient (OUT) | payer OTHER, MEDICARE, SELFPAY ==
[2023-06-27 15:34] LABS: Anion Gap 10.8; BUN Creatinine Ratio 12.7; Carbon Dioxide 29.7 mmol/L (21.0-32.0); Chloride 100 mmol/L (98-107); Estimated GFR (African America >60 (>=60); Estimated GFR (Non-African Ame 54 (>=60); Glucose 180 mg/dL (74-106); Potassium 3.5 mmol/L (3.5-5.1); Sodium 137 mmol/L (136-145)
--- OUTSIDE RECORDS SUMMARY | 2023-06-28 09:52 | XMS_ITS | CCD ---
Author Name Unknown Address [address] [place] [address] Organization [facility] Care Team Providers Care General Counsel Name Role Phone BALAJI IMAN Admitting Unavailable NADERER, ERASTO Primary Care Unavailable NADERER, ERASTO Referring Unavailable Augustin Penn Attending Unavailable NADERER, DR ERASTO Carrera Primary Care Unavailable MISC, DR CEDILLO Admitting Unavailable MISC, DR CEDILLO Attending Unavailable NADERER, DR ERASTO Carrera Primary Care Unavailable INFANTE, DR LEBLANC Consulting Unavailable INFANTE, DR LEBLANC Admitting Unavailable INFANTE, DR LEBLANC Attending Unavailable NADERER, DR ERASTO Carrera Admitting Unavailable NADERER, DR ERASTO Carrera Primary Care Unavailable NADERER, DR ERASTO Carrera Consulting Unavailable NADERER, DR ERASTO Carrera Attending Unavailable NADERER, DR ERASTO Carrera Primary Care Unavailable MISC, DR CEDILLO Admitting Unavailable MISC, DR CEDILLO Consulting Unavailable MISC, DR CEDILLO Attending Unavailable NADERER, DR ERASTO Carrera Primary Care Unavailable SAMSA ., ISHAN Admitting Unavailable SAMSA ., ISHAN Attending Unavailable ZIEBER, DR MIGUE Wild Consulting Unavailable SAMSA ., ISHAN Consulting Unavailable NADYUNI, DR ERASTO Carrera Admitting Unavailable NADERETorri, DR ERASTO Carrera Primary Care Unavailable NADERER, DR ERASTO Carrera Attending Unavailable ZIEBER, DR MIGUE Wild Consulting Unavailable NADERER, DR ERASTO Carrera Consulting Unavailable GRECHNY ., GRADY ARANDA Consulting Unavailbailey VASQUES ., DR MCCLELLAND Consulting Unavailable NADERETorri, DR ERASTO Carrera Primary Care Unavailable DORIS ., NARCISA Admitting Unavailable DORIS ., NARCISA Attending Unavailable ERICA, DR ASAEL Fox Consulting Unavailable DORIS ., NARCISA Consulting Unavailable HEIKE, DR ERASTO Carrera Primary Care Unavailable NADERER, DR ERASTO Carrera Attending Unavailable NADERETorri, DR ERASTO Carrera Admitting Unavailable WEST, DR ASEAL Fox Consulting Unavailable DORIS ., NARCISA Procedure Practitioner Unava ilable ANGELES, DR MIGUE Wild Consulting Unavailable NADERER, DR ERASTO Carrera Consulting Unavailable SAMSA ., ISHAN Procedure Practitioner Unavailab le KINSEY ., JUANCARLOS Consulting Unavailable SAMSA ., ISHAN Consulting Unavailable DORIS ., NARCISA Consulting Unavailable INGRAM, DREW Consulting Unavailable ADAMSON, DANI M Consulting Unavailable NADERER, DR ERASTO Carrera Primary Care Unavailable NADERER, DR ERASTO Carrera Admitting Unavailable NADERER, DR ERASTO Carrera Attending Unavailable ZACH, DR AVINASH Pelayo Consulting Unavailbailey SERRANO, DR AVINASH Pelayo Procedure Practitioner Audrey tariqilabrooklyn SARAVIA, ORESTES Procedure Practitioner Unavailab davey REYNOSO, DR MIGUE Wild Consulting Unavailable NADERER, DR ERASTO Carrera Consulting Unavailable SAMSA ., ISHAN Procedure Practitioner Unavailab le NATALIYA ., GRADY ARANDA Consulting Unavailabl e MANJIT, ORESTES Consulting Unavailable SAMSA ., ISHAN Consulting Unavailable KIKA, ASAEL Consulting Unavailable CHRISTOPHER, STEPHEN Consulting Unavailable SISTER, BERENICE Consulting Unavailable TYSHAWN MOORE Consulting Unavailable NADERER, DR ERASTO Carrera Primary Care Unavailable INFANTE, DR LEBLANC Consulting Unavailable INFANTE, DR LEBLANC Admitting Unavailable INFANTE, DR LEBLANC Attending Unavailable NADERER, DR ERASTO Carrera Primary Care Unavailable MISC, DR CEDILLO Admitting Unavailable MISC, DR CEDILLO Consulting Unavailable MISC, DR CEDILLO Attending Unavailable ZIEBER, DR MIGUE Wild Consulting Unavailable NADERER, DR ERASTO Carrera Consulting Unavailable NADERER, DR ERASTO Carrera Attending Unavailable NADERER, DR ERASTO Carrera Admitting Unavailable NADERER, DR ERASTO Carrera Admitting Unavailable NADERER, DR ERASTO Carrera Primary Care Unavailable NADERER, DR ERASTO Carrera Attending Unavailable Ihsan BROWN Attending Unavailable KEVIN, Ihsan Wild Attending Unavailable Ihsan BROWN Attending Unavailable Iman Jeter Attending UnavailSHAIKH Link Attending Unavailable MD Erasto Burroughs Primary Care Provider [phone] MD Remy Givens Attending Provider Remy Givens Attending Unavailable Remy Givens Admitting Unavailable KasiereErasto wild Primary Care Unavailable MERZA, NOORALDIN Referring Unavailable MOUKAJER BECKER Attending Unavailable JARRODUKAEUGENIO, JER Attending Unavailable AVINASH SERRANO Referring Unavailable KAUSHAL, JAZMIN Admitting Unavailable HORJORGE HOWARDAR Attending Unavailable HORJORGE HOWARDAR Referring Unavailable MERZA, NOORALDIN Referring Unavailable MERZA, NOORALDIN Referring Unavailable Allergies Allergy Classification Reported Allergen(s) Allergy Type Date of Onset Reaction(s) Facility (4 sources) Azithromycin; Translations: [AZITHROMYCIN] Drug Allergy 03-05-2019 [facility] Repository (5 sources) Latex; Translations: [Latex] Drug allergy (disorder) 04-24-2007 [facility] Repository (1 source) Azithromycin; Translations: [Zithromax] Drug Allergy [facility] Repository (1 source) Azithromycin Drug Allergy 04-06-2022 [facility] Repository (1 source) Latex Drug allergy (disorder) 04-06-2022 [facility] Repository Medications Current Medications Medication Drug Class(es) Dates Sig (Normalized) Sig (Original) acetaminophen 500 mg oral tablet (1 source) Start: 04-06-2022 Acetaminophen (Tylenol Ex Str Rapid Release) 500 mg Tablet Active 1000 MG PO Q6H April 05, 2022 11:00pm albuterol 0.833 mg/ml / ipratropium bromide 0.167 mg/ml inhalation solution (1 source) Anticholinergic, beta2-Adrenergic Agonist Start: 04-06-2022 take 1 mL by inhalation four times daily Ipratropium-Albuter ol Active 0.5 ML INHALATION Four times daily April 05, 2022 11:00pm aspirin 81 mg delayed release oral tablet (1 source) Platelet Aggregation Inhibitor, Nonsteroidal Anti-inflammatory Drug Start: 04-06-2022 take 81 mg by mouth once daily Aspirin Active 81 MG PO Daily April 05, 2022 11:00pm atorvastatin 40 mg oral tablet (1 source) HMG-CoA Reductase Inhibitor Start: 04-06-2022 take 40 mg by mouth once daily at bedtime Atorvastatin Active 40 MG PO Daily at bedtime April 05, 2022 11:00pm cholecalciferol 0.05 mg oral tablet (1 source) Vitamin D Start: 04-06-2022 take 50 ug by mouth once daily Cholecalciferol (Vitamin D3) Active 50 MCG PO Daily April 05, 2022 11:00pm sprinkle DULoxetine 30 mg delayed release oral capsule (1 source) Serotonin and Norepinephrine Reuptake Inhibitor Start: 04-06-2022 take 90 mg by mouth once daily Duloxetine Active 90 MG PO Daily April 05, 2022 11:00pm eszopiclone 3 mg oral tablet (1 source) Start: 04-06-2022 take 3 mg by mouth once daily at bedtime Eszopiclone Active 3 MG PO Daily at bedtime April 05, 2022 11:00pm melatonin 5 mg oral tablet (1 source) Start: 04-06-2022 take 5 mg by mouth at bedtime Melatonin Active 5 MG PO Bedtime April 05, 2022 11:00pm metoprolol tartrate 25 mg oral tablet (1 source) beta-Adrenergic Joslyn Start: 04-06-2022 take 12.5 mg by mouth every twelve hours Metoprolol Tartrate Active 12.5 MG PO Q12H April 05, 2022 11:00pm pantoprazole 40 mg delayed release oral tablet (1 source) Proton Pump Inhibitor Start: 04-06-2022 take 40 mg by mouth once daily Pantoprazole Active 40 MG PO Daily April 05, 2022 11:00pm predniSONE 10 mg oral tablet (1 source) Start: 04-06-2022 take 10 mg by mouth once daily Prednisone Active 10 MG PO Daily April 05, 2022 11:00pm pregabalin 100 mg oral capsule (1 source) Start: 04-06-2022 take 100 mg by mouth three times daily Pregabalin Active 100 MG PO Three times daily April 05, 2022 11:00pm Completed/Discontinued Medications Medication Drug Class(es) Dates Sig (Normalized) Sig (Original) clopidogrel 75 mg oral tablet (1 source) [id number] Platelet Inhibitor Start: 04-06-2022 End: 06-26-2023 take 75 mg by mouth once daily Clopidogrel Discontinued 75 MG PO Daily April 05, 2022 11:00pm June 26, 2023 1:30pm Fluticasone Furoate-Vilantero l (1 source) Corticosteroid, beta2-Adrenergic Agonist Start: 04-06-2022 End: 06-26-2023 Fluticasone Furoate-Vilanterol Discontinued 1 INH INHALATION Daily April 05, 2022 11:00pm June 26, 2023 1:31pm 24 hr nicotine 0.875 mg/hr transdermal system (1 source) Cholinergic Nicotinic Agonist Start: 04-06-2022 End: 06-26-2023 apply 1 dose transdermal route once daily Nicotine Discontinued 1 PATCH TRANSDERML Daily April 05, 2022 11:00pm June 26, 2023 1:31pm 24 hr NIFEdipine 30 mg extended release oral tablet (1 source) Dihydropyridine Calcium Channel Joslyn Start: 04-06-2022 End: 06-26-2023 take 30 mg by mouth once daily Nifedipine Discontinued 30 MG PO Daily April 05, 2022 11:00pm June 26, 2023 1:32pm Problems Active Problems Problem Classification Problem Date Documented Date Episodic/Chronic Acute myocardial infarction (2 sources) Non-ST elevation (NSTEMI) myocardial infarction; Translations: [Non-ST elevation (NSTEMI) myocardial infarction] Onset: 3 Chronic Chronic obstructive pulmonary disease and bronchiectasis (3 sources) Chronic obstructive pulmonary disease, unspecified; Translations: [Emphysema, unspecified] Onset: 2 Chronic Coronary atherosclerosis and other heart disease (4 sources) Atherosclerotic heart disease of [place] coronary artery without angina pectoris; Translations: [ATHSCL HEART DISEASE OF [place] CORONARY ARTERY W/O ANG PCTRS] Onset: 2 Chronic Deficiency and other anemia (1 source) Iron deficiency anemia, unspecified; Translations: [IRON DEFICIENCY ANEMIA, UNSPECIFIED] Onset: 2 Episodic Diabetes mellitus with complications (1 source) Type 2 diabetes mellitus with hyperglycemia; Translations: [TYPE 2 DM W/HYPERGLYCEMIA] Onset: 2 Chronic Diabetes mellitus without complication (1 source) Type 2 diabetes mellitus without complications; Translations: [TYPE 2 DM WITHOUT COMPLICATIONS] Onset: 2 Chronic Diabetes mellitus without complication (1 source) Hyperglycemia, unspecified; Translations: [HYPERGLYCEMIA, UNSPECIFIED] Onset: 2 Episodic Disorders of lipid metabolism (1 source) Pure hypercholesterolemia, unspecified; Translations: [PURE HYPERCHOLESTEROLEMIA UNSPEC] Onset: 2 Chronic Essential hypertension (4 sources) Essential (primary) hypertension; Translations: [ESSENTIAL (PRIMARY) HYPERTENSION] Onset: 2 Chronic Mood disorders (1 source) Major depressive disorder, single episode, unspecified; Translations: [ANDRES DEPRESS D/O SINGLE EPIS UNS] Onset: 2 Chronic Mood disorders (1 source) Mood disorders; Translations: [DEPRESSION, UNSPECIFIED] Onset: 2 Nutritional deficiencies (1 source) Vitamin D deficiency, unspecified; Translations: [VITAMIN D DEFICIENCY UNSPECIFIED] Onset: 2 Chronic Osteoarthritis (4 sources) Primary generalized (osteo)arthritis; Translations: [PRIMARY GENERALIZED OSTEOARTHRITIS] Onset: 3 Chronic Osteoporosis (5 sources) Age-related osteoporosis without current pathological fracture; Translations: [AGE-REL OSTEOPOR W/O CURR PATH FX] Onset: 2 Chronic Other aftercare (5 sources) Other intermediate card tender (current) drug therapy; Translations: [OTH REFINERY OPERATOR LIGHT ENDS RECOVERY CURRENT DRUG THERAPY] Onset: 2 Episodic Other circulatory disease (1 source) Raynaud's syndrome without gangrene; Translations: [RAYNAUDS SYNDROME WITHOUT GANGRENE] Onset: 2 Chronic Other connective tissue disease (2 sources) Polymyalgia rheumatica; Translations: [POLYMYALGIA RHEUMATICA] Onset: 2 Chronic Other lower respiratory disease (4 sources) Other nonspecific abnormal finding of lung field; Translations: [OTH NONSPECIFIC ABN FIND LNG FIELD] Onset: 3 Episodic Other non-traumatic joint disorders (1 source) Arthropathy in other blood disorders; Translations: [ARTHROPATHY OTHER BLOOD DISORDERS] Onset: 2 Chronic Pleurisy; pneumothorax; pulmonary collapse (12 sources) Spontaneous pneumothorax; Translations: [Spontaneous tension pneumothorax] Onset: 2 Episodic Pneumonia (except that caused by tuberculosis or sexually transmitted disease) (3 sources) Pneumonia, unspecified organism; Translations: [PNEUMONIA UNSPECIFIED ORGANISM] Onset: 2 Episodic Respiratory failure; insufficiency; arrest (adult) (2 sources) Chronic respiratory failure with hypoxia; Translations: [Dependence on supplemental oxygen] Onset: 2 Chronic Substance-related disorders (2 sources) Nicotine dependence, unspecified, uncomplicated; Translations: [Nicotine dependence, cigarettes, uncomplicated] Onset: 2 Chronic Systemic lupus erythematosus and connective tissue disorders (2 sources) Other giant cell arteritis; 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] Onset: 3 Chronic Unclassified (1 source) SPONTANEOUS PNEUMO Onset: 2 Unclassified (1 source) CONTACT W/AND (SUSP) EXPOS COVID-19; Translations: [CONTACT W/AND (SUSP) EXPOS COVID-19] Onset: 2 Unclassified (1 source) THROMBOCYTOSIS UNSPECIFIED; Translations: [THROMBOCYTOSIS UNSPECIFIED] Onset: 2 Past or Other Problems Problem Classification Problem Date Documented Da te Episodic/Chronic Coronary atherosclerosis and other heart disease (2 sources) Presence of coronary angioplasty implant and graft; Translations: [Presence of coronary angioplasty implant and graft] Onset: 08-14-2022 Episodic Deficiency and other anemia (1 source) Other iron deficiency anemias; Translations: [OTHER IRON DEFICIENCY ANEMIAS] Onset: 05-01-2022 Episodic Fluid and electrolyte disorders (1 source) Dehydration; Translations: [DEHYDRATION] Onset: 12-18-2021 Episodic Nutritional deficiencies (1 source) Cachexia; Translations: [CACHEXIA] Onset: 04-04-2022 Episodic Other aftercare (1 source) skilled nursing (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; Translations: [REFINERY OPERATOR LIGHT ENDS RECOVERY CURRENT USE OF ASPIRIN] Onset: 05-01-2022 Episodic Other aftercare (1 source) skilled nursing (current) use of antithrombotics/an tiplatelets; Translations: [CHCF ANTITHROMBOT/ANTIP LATLETS] Onset: 03-16-2022 Episodic Other circulatory disease (4 sources) Hypotension, unspecified; Translations: [HYPOTENSION UNSPECIFIED] Onset: 12-14-2021 Episodic Other connective tissue disease (1 source) Fibromyalgia; Translations: [FIBROMYALGIA] Onset: 04-04-2022 Episodic Other injuries and conditions due to external causes (1 source) History of falling; Translations: [HISTORY OF FALLING] Onset: 03-16-2022 Episodic Other lower respiratory disease (3 sources) Shortness of breath; Translations: [SHORTNESS OF BREATH] Onset: 04-25-2022 Episodic Other nutritional; endocrine; and metabolic disorders (1 source) Body mass index (BMI) 19.9 or less, adult; Translations: [BODY MASS INDEX 19.9 OR LESS ADULT] Onset: 04-04-2022 Episodic Respiratory failure; insufficiency; arrest (adult) (2 sources) Acute respiratory failure with hypoxia; Translations: [ACUTE RESPIRATORY FAILURE WITH HYPOXIA] Onset: 03-08-2022 Episodic Screening and history of mental health and substance abuse codes (1 source) Personal history of nicotine dependence; Translations: [PERSONAL HISTORY OF NICOTINE DEPEND] Onset: 05-01-2022 Episodic Results Test Name Value Interpretation Reference Range Facility Office [facility] 06-27-2023 Follow-up visit [id number] Covert,Lise Easton 1955 F Date Provider Department [place] 06/27/2023 JER LARRY [facility] Family History Problem Relation Age of Onset Stroke Father Stroke Father's Sister Coronary artery disease Paternal Grandmother Family Status - Relation Status Age at Father Father's Sister Paternal Grandmother Level of Service:85907 DC OFFICE/OUTPATIENT ESTABLISHED LOW MDM 20 MIN Normal [facility] 30on 06-06-2023 30 The patient is Moderately Stable - Low risk of patient condition declining or worsening The patient's goals for the shift include comfort The clinical goals for the shift include stable VS Problem: Safety - Adult Goal: Free from fall injury Outcome: Adequate for Discharge Flowsheets (Taken 06/06/2023 0800) Free from fall injury: Assess patient frequently for physical needs Problem: Discharge Planning Goal: Discharge to home or other facility with appropriate resources Outcome: Adequate for Discharge Flowsheets (Taken 06/06/2023 0801) Discharge to home or other facility with appropriate resources: Identify barriers to discharge with patient and caregiver Arrange for needed discharge resources and transportation as appropriate Problem: Chronic Conditions and Co-morbidities Goal: Patient's chronic conditions and co-morbidity symptoms are monitored and maintained or improved Outcome: Adequate for Discharge Flowsheets (Taken 06/06/2023 0801) Care Plan - Patient's Chronic Conditions and Co-Morbidity Symptoms are Monitored and Maintained or Improved: Monitor and assess patient's chronic conditions and comorbid symptoms for stability, deterioration, or improvement Normal [facility] BASIC METABOLIC PANELon 05-10 Anion gap [Moles/Vol] 9 mmol/L Normal 7-20 [facility] Comment on above: Performed By: #### L [id number] #### [facility] ([employer]) [address] [place] [address] Calcium [Mass/Vol] 8.3 mg/dL Low 8.6-10.3 [facility] Comment on above: Performed By: #### L [id number] #### [facility] (BEAKER) [address] [place] [address] Chloride [Moles/Vol] 99 mmol/L Normal 98-107 [facility] Comment on above: Performed By: #### L [id number] #### [facility] ([facility]) [address] [place] [address] CO2 [Moles/Vol] 26 mmol/L Normal 21-31 [facility] Comment on above: Performed By: #### L [id number] #### [facility] ([facility]) [address] [place] [address] Creatinine [Mass/Vol] 0.72 mg/dL Normal 0.60-1.[address] [facility] Comment on above: Performed By: #### L [id number] #### [facility] ([facility]) [address] [place] [address] GLOMERULAR FILTRATION RATE ML/MIN/1.73 SQ M.PREDICTED 92.2 mL/min/1.73m*2 Normal >60.0 [facility] Comment on above: Result Comment: The [facility]???s estimated glomerular filtration rate (eGFR) will no longer include consideration of race in its calculation. The National Kidney Foundation???s eGFR Task Force developed new recommendations for the estimation of the glomerular filtration rate in the [place] They recommend immediate implementation of the new equation refit without the race variable in all laboratories because the calculation does not include race. In addition to not including race in the calculation and reporting, it included diversity in its development, and has acceptable performance characteristics and potential consequences that do not disproportionately affect any one group of individuals. Performed By: #### L [id number] #### [facility] ([facility] [address] [place] [address] Glucose [Mass/Vol] 107 mg/dL High 70-100 [facility] Comment on above: Performed By: #### L [id number] #### [facility] ([facility] [address] [place] [address] Potassium [Moles/Vol] 3.9 mmol/L Normal 3.5-5.1 [facility] Comment on above: Performed By: #### L [id number] #### [facility] ([facility]ER) [address] [place] [address] Sodium [Moles/Vol] 130 mmol/L Low 136-145 [facility] Comment on above: Performed By: #### L [id number] #### [facility] (BEAKER) [address] [place] [address] Urea nitrogen [Mass/Vol] 12 mg/dL Normal 7-25 [facility] Comment on above: Performed By: #### L [id number] #### [facility] ([facility]) [address] [place] [address] UREA NITROGEN/CREATININE (MASS RATIO) IN SER/PLAS 16.7 Normal [facility] Comment on above: Performed By: #### L [id number] #### [facility] ([facility] [address] [place] [address] CBCon 06-06-2023 Erythrocyte distribution width (RBC) [Ratio] 13.4 % Normal 11.5-15.0 [facility] Comment on above: Performed By: #### L [id number] #### [facility] ([facility]) [address] [place] [address] ERYTHROCYTE MEAN CORPUSCULAR HEMOGLOBIN CONCENTRATION (G/DL) BY AUTOMATED 33.4 g/dL Normal 32.0-35.0 [facility] Comment on above: Performed By: #### L [id number] #### [facility] (BEAKER) [address] [place] [address] Hematocrit (Bld) [Volume fraction] 28.7 % Low 36.0-48.0 [facility] Comment on above: Performed By: #### L [id number] #### [facility] (BEAKER) [address] [place] [address] Hemoglobin (Bld) [Mass/Vol] 9.6 g/dL Low 12.0-15.0 [facility] Comment on above: Performed By: #### L [id number] #### [facility] ([facility] [address] [place] [address] MCH (RBC) [Entitic mass] 28.2 pg Normal 27.0-33.0 [facility] Comment on above: Performed By: #### L [id number] #### [facility] ([facility] [address] [place] [address] MCV (RBC) [Entitic vol] 84.4 fL Normal 82.0-98.0 [facility] Comment on above: Performed By: #### L [id number] #### [facility] ([facility]) [address] [place] [address] PLATELETS (10*3/UL) IN BLOOD AUTOMATED COUNT 522 10*3/uL High 150-400 [facility] Comment on above: Performed By: #### L [id number] #### [facility] ([facility]) [address] [place] [address] RBC (Bld) [#/Vol] 3.40 10*6/uL Low 3.80-5.00 [facility] Comment on above: Performed By: #### L [id number] #### [facility] ([facility]) [address] [place] [address] WBC (Bld) [#/Vol] 10.31 10*3/uL Normal 4.00-10.60 [facility] Comment on above: Performed By: #### L [id number] #### [facility] ([facility]) [address] [place] [address] Letter (Out)on 06-06-2023 Letter (Out) [id number] Covert,Lise Easton 1955 F Date Provider Department Center 06/06/2023 [id number], GENERIC PRO*INIT None Family History Problem Relation Age of Onset Stroke Father Stroke Father's Sister Coronary artery disease Paternal Grandmother Family Status - Relation Status Age at Father Father's Sister Paternal Grandmother Normal [facility] MAGNESIUMon 06-06-2023 Magnesium [Mass/Vol] 1.9 mg/dL Normal 1.9-2.7 [facility] Comment on above: Performed By: #### L [id number] #### [facility] ([facility]) [address] [place] [address] 30on 06-05-2023 30 The patient is Moderately Stable - Low risk of patient condition declining or worsening The patient's goals for the shift include comfort The clinical goals for the shift include stable vitals [facility] 30 Daily Case Managemen t Update Multidisciplinary rounds have been completed. Barriers to Discharge: Transfer from [place] for chest pain and NSTEMI. TTE ordered. Pending cardio rec. Trop was .06 down to .04. +UTI and Pneumonia. Continue IV Rocephin. Urine and blood cultures pending. Patient is from home with [facility] and 2L home 02 Diet: Dietary Orders (From admission, onward) Start Ordered 06/05/23 1359 Regular Diet Heart Healthy/HTN, CABG,Stroke, (2gNA, low fat, low cholesterol) Diet effective now Question Answer Comment Room Service? Yes Fat restriction: Heart Healthy/HTN, CABG,Stroke, (2gNA, low fat, low cholesterol) 06/05/23 1358 Physician Expected Discharge Date: 06/08/2023 Discharge Delays: PT Six Click Score: OT Six Click Score: PT Recommendations: OT Recommendations: Is expected discharge disposition appropriate for patient?: Yes New Consults: Consult Orders (From admission, onward) Start Ordered 06/05/23 0117 Inpatient consult to Cardiology Once Specialty: Cardiology Provider: (Not yet assigned) Question Answer Comment Consulting Group CARDIOLOGY TEAM Reason for Consult? NSTEMI Level of Consultation Consultation and Management 06/05/23 0119 Ancillary Consults (From admission, onward) Start Ordered 06/05/23 1508 Inpatient consult to Social Work Once Provider: (Not yet assigned) Question Answer Comment Is discharge planning needed? If yes, who is requesting discharge planning? Other (Comment) Select all services needed for the patient Home Health Types of Home Health Service needed Occupational Therapy Types of Home Health Service needed Physical Therapy Please indicate your approval for this care by adding your name here: DANIEL GUERIN 06/05/23 1508 [facility] 30 The patient is Moderately Unstable - Medium risk of patient condition declining or worsening The patient's goals for the shift include comfort The clinical goals for the shift include vss Over the shift, the patient did not make progress toward the following goals. Barriers to progression include . Recommendations to address these barriers include . Normal [facility] 30 The patient is Moderately Stable - Low risk of patient condition declining or worsening The patient's goals for the shift include comfort The clinical goals for the shift include vss Problem: Pain - Adult Goal: Verbalizes/displays adequate comfort level or baseline comfort level Outcome: Progressing Flowsheets (Taken 06/05/202347) Verbalizes/displays adequate comfort level or baseline comfort level: Encourage patient to monitor pain and request assistance Assess pain using appropriate pain scale Administer analgesics based on type and severity of pain and evaluate response Implement non-pharmacological measures as appropriate and evaluate response Consider cultural and social influences on pain and pain management Notify Licensed Independent Practitioner if interventions unsuccessful or patient reports new pain Problem: Safety - Adult Goal: Free from fall injury Outcome: Progressing Flowsheets (Taken 06/05/202347) Free from fall injury: Assess patient frequently for physical needs [place] fall precautions as indicated by assessment Identify cognitive and physical deficits and behaviors that affect risk of falls Educate patient/family on patient safety, including physical limitations Instruct patient to call for assistance with activity based on assessment Modify environment to reduce risk of injury Consider OT/PT consult to assist with strengthening/mobilit y Problem: Discharge Planning Goal: Discharge to home or other facility with appropriate resources Outcome: Progressing Flowsheets (Taken 06/05/202347) Discharge to home or other facility with appropriate resources: Identify barriers to discharge with patient and caregiver Arrange for needed discharge resources and transportation as appropriate Identify discharge learning needs (meds, wound care, etc) Arrange for interpreters to assist at discharge as needed Refer to discharge planning if patient needs post-hospital services based on physician order or complex needs related to functional status, cognitive ability or social support system Problem: Chronic Conditions and Co-morbidities Goal: Patient's chronic conditions and co-morbidity symptoms are monitored and maintained or improved Outcome: Progressing Flowsheets (Taken 06/05/202347) Care Plan - Patient's Chronic Conditions and Co-Morbidity Symptoms are Monitored and Maintained or Improved: Monitor and assess patient's chronic conditions and comorbid symptoms for stability, deterioration, or improvement Collaborate with multidisciplinary team to address chronic and comorbid conditions and prevent exacerbation or deterioration Update acute care plan with appropriate goals if chronic or comorbid symptoms are exacerbated and prevent overall improvement and discharge Normal [facility] 30 The patient is Moderately Stable - Low risk of patient condition declining or worsening The patient's goals for the shift include comfort The clinical goals for the shift include VSS Normal [facility] ANTI-XA (HEPARIN LEVEL)on HEPARIN UNFRACTIONATED (U/ML) IN PPP BY CHROMOGENIC METHOD <0.10 Invalid Interpretation Code 0.3-0.7 [facility] Comment on above: Order Comment: Check anti-Xa level every 6 hours while on heparin infusion, or per protocol. Result Comment: Hope roxaban and Apixaban will interfere with the anti Xa assay used to monitor UFH and LMWH. Performed By: #### L [id number] #### [facility] ([employer]) [address] [place] [address] HEPARIN UNFRACTIONATED (U/ML) IN PPP BY CHROMOGENIC METHOD <0.10 Invalid Interpretation Code 0.3-0.7 [facility] Comment on above: Order Comment: Check anti-Xa level every 6 hours while on heparin infusion, or per protocol. Result Comment: Hope roxaban and Apixaban will interfere with the anti Xa assay used to monitor UFH and LMWH. Performed By: #### L [id number] #### [facility] ([employer]) [address] [place] [address] APTTon 06-05-2023 ACTIVATED PARTIAL THROMBOPLASTIN TIME IN PPP BY COAGULATION ASSAY 38.8 Seconds High 25.0-35.0 [facility] Comment on above: Result Comment: Clin ical significance of the APTT is questionable in the presence of heparin. Performed By: #### L [id number] #### [facility] ([employer]) [address] [place] [address] B-TYPE NATRIURETIC PEPTIDEon 06-05-2023 Natriuretic peptide B (Bld) [Mass/Vol] 136 pg/mL High 0-100 [facility] Comment on above: Performed By: #### L [id number] ####[facility] ([employer])[address] [place] [address] BLOOD CULTUREon 06-05-2023 Bacteria identified Cx Nom (Bld) No growth at 5 days Normal [facility] Comment on above: Performed By: #### L [id number] ####[facility] ([facility])[address] [place] [address] Order Comment: From a different site than #1. CBC WITH AUTO DIFFERENTIALon 06-05-2023 Basophils (Bld) [#/Vol] 0.05 10*3/uL Normal 0.00-0.20 [facility] Comment on above: Performed By: #### L [id number] #### [facility] ([facility]) [address] [place] [address] Basophils/100 WBC (Bld) 0.3 % Normal 0.0-1.0 [facility] Comment on above: Performed By: #### L [id number] #### [facility] ([facility]) [address] [place] [address] Eosinophils (Bld) [#/Vol] 0.02 10*3/uL Normal 0.00-0.50 [facility] Comment on above: Performed By: #### L [id number] #### [facility] ([facility] [address] [place] [address] Eosinophils/100 WBC (Bld) 0.1 % Normal 0.0-6.0 [facility] Comment on above: Performed By: #### L [id number] #### [facility] ([facility]) [address] [place] [address] Erythrocyte distribution width (RBC) [Ratio] 13.3 % Normal 11.5-15.0 [facility] Comment on above: Performed By: #### L [id number] #### [facility] ([facility]) [address] [place] [address] ERYTHROCYTE MEAN CORPUSCULAR HEMOGLOBIN CONCENTRATION (G/DL) BY AUTOMATED 32.4 g/dL Normal 32.0-35.0 [facility] Comment on above: Performed By: #### L [id number] #### [facility] ([facility]) [address] [place] [address] Hematocrit (Bld) [Volume fraction] 35.8 % Low 36.0-48.0 [facility] Comment on above: Performed By: #### L [id number] #### [facility] ([facility]) [address] [place] [address] Hemoglobin (Bld) [Mass/Vol] 11.6 g/dL Low 12.0-15.0 [facility] Comment on above: Performed By: #### L [id number] #### [facility] ([facility]) [address] [place] [address] Immature granulocytes (Bld) [#/Vol] 0.17 10*3/uL Normal 0.00-0.20 [facility] Comment on above: Performed By: #### L [id number] #### [facility] ([facility]) [address] [place] [address] Immature granulocytes/100 WBC (Bld) 1.0 % Normal 0.0-1.0 [facility] Comment on above: Performed By: #### L [id number] #### [facility] ([facility]) [address] [place] [address] Lymphocytes (Bld) [#/Vol] 0.80 10*3/uL Low 1.20-4.00 [facility] Comment on above: Performed By: #### L [id number] #### [facility] ([facility]) [address] [place] [address] Lymphocytes/100 WBC (Bld) 4.6 % Low 20.0-45.0 [facility] Comment on above: Performed By: #### L [id number] #### [facility] ([facility]) [address] [place] [address] MCH (RBC) [Entitic mass] 28.3 pg Normal 27.0-33.0 [facility] Comment on above: Performed By: #### L [id number] #### [facility] ([facility]) [address] [place] [address] MCV (RBC) [Entitic vol] 87.3 fL Normal 82.0-98.0 [facility] Comment on above: Performed By: #### L [id number] #### [facility] ([facility]) [address] [place] [address] Monocytes (Bld) [#/Vol] 0.78 10*3/uL Normal 0.10-1.00 [facility] Comment on above: Performed By: #### L [id number] #### [facility] ([facility]) [address] [place] [address] Monocytes/100 WBC (Bld) 4.5 % Low 5.0-12.0 [facility] Comment on above: Performed By: #### L [id number] #### [facility] ([facility]) [address] [place] [address] Neutrophils (Bld) [#/Vol] 15.46 10*3/uL High 1.60-7.60 [facility] Comment on above: Performed By: #### L [id number] #### [facility] ([facility]) [address] [place] [address] Neutrophils/100 WBC (Bld) 89.5 % High 40.0-72.0 [facility] Comment on above: Performed By: #### L [id number] #### [facility] ([facility]) [address] [place] [address] NRBC (PER 100 WBCS) BY AUTOMATED COUNT 0.0 % Normal 0 [facility] Comment on above: Performed By: #### L [id number] #### [facility] ([facility]) [address] [place] [address] PLATELETS (10*3/UL) IN BLOOD AUTOMATED COUNT 517 10*3/uL High 150-400 [facility] Comment on above: Performed By: #### L [id number] #### [facility] ([facility]) [address] [place] [address] RBC (Bld) [#/Vol] 4.10 10*6/uL Normal 3.80-5.00 [facility] Comment on above: Performed By: #### L [id number] #### [facility] ([facility] [address] [place] [address] WBC (Bld) [#/Vol] 17.28 10*3/uL High 4.00-10.60 [facility] Comment on above: Performed By: #### L [id number] #### [facility] ([facility] [address] [place] [address] COMPREHENSIVE METABOLIC PANE [place] 06-05-2023 ALANINE AMINOTRANSFERASE (SGPT) (U/L) IN SER/PLAS <3 Low 7-52 [facility] Comment on above: Performed By: #### L [id number] #### [facility] ([facility] [address] [place] [address] Albumin [Mass/Vol] 3.1 g/dL Low 3.5-5.7 [facility] Comment on above: Performed By: #### L [id number] #### [facility] ([facility]) [address] [place] [address] ALP [Catalytic activity/Vol] 83 U/L Normal 34-104 [facility] Comment on above: Performed By: #### L [id number] #### [facility] ([facility]) [address] [place] [address] Anion gap [Moles/Vol] 13 mmol/L Normal 7-[address] [facility] Comment on above: Performed By: #### L [id number] #### [facility] ([facility]) [address] [place] [address] AST [Catalytic activity/Vol] 14 U/L Normal 13-39 [facility] Comment on above: Performed By: #### L [id number] #### [facility] ([facility]) [address] [place] [address] Bilirubin [Mass/Vol] 0.3 mg/dL Normal 0.3-1.0 [facility] Comment on above: Performed By: #### L [id number] #### [facility] ([facility]) [address] [place] [address] Calcium [Mass/Vol] 8.9 mg/dL Normal 8.6-10.3 [facility] Comment on above: Performed By: #### L [id number] #### [facility] ([facility]) [address] [place] [address] Chloride [Moles/Vol] 98 mmol/L Normal 98-107 [facility] Comment on above: Performed By: #### L [id number] #### [facility] ([facility]) [address] [place] [address] CO2 [Moles/Vol] 25 mmol/L Normal 21-31 [facility] Comment on above: Performed By: #### L [id number] #### [facility] ([facility]) [address] [place] [address] Creatinine [Mass/Vol] 0.96 mg/dL Normal 0.60-1.[address] [facility] Comment on above: Performed By: #### L [id number] #### [facility] ([facility]) [address] [place] [address] GLOMERULAR FILTRATION RATE ML/MIN/1.73 SQ M.PREDICTED 65.3 mL/min/1.73m*2 Normal >60.0 [facility] Comment on above: Result Comment: The [facility]???s estimated glomerular filtration rate (eGFR) will no longer include consideration of race in its calculation. The National Kid[employer] Foundation???s eGFR Task Force developed new recommendations for the estimation of the glomerular filtration rate in the [place] They recommend immediate implementation of the new equation refit without the race variable in all laboratories because the calculation does not include race. In addition to not including race in the calculation and reporting, it included diversity in its development, and has acceptable performance characteristics and potential consequences that do not disproportionately affect any one group of individuals. Performed By: #### L [id number] #### [facility] ([facility]) [address] [place] [address] Glucose [Mass/Vol] 93 mg/dL Normal 70-100 [facility] Comment on above: Performed By: #### L [id number] #### [facility] ([facility]) [address] [place] [address] Potassium [Moles/Vol] 3.3 mmol/L Low 3.5-5.[address] [facility] Comment on above: Performed By: #### L [id number] #### [facility] ([facility]) [address] [place] [address] Protein [Mass/Vol] 5.7 g/dL Low 6.0-8.3 [facility] Comment on above: Performed By: #### L [id number] #### [facility] ([facility]) [address] [place] [address] Sodium [Moles/Vol] 133 mmol/L Low 136-145 [facility] Comment on above: Performed By: #### L [id number] #### [facility] ([facility]) [address] [place] [address] Urea nitrogen [Mass/Vol] 12 mg/dL Normal 7-25 [facility] Comment on above: Performed By: #### L [id number] #### [facility] ([facility]) [address] [place] [address] UREA NITROGEN/CREATININE (MASS RATIO) IN SER/PLAS 12.5 Normal [facility] Comment on above: Performed By: #### L [id number] #### [facility] ([facility]) [address] [place] [address] CONSULTon 06-05-2023 CONSULT - Attestation signed by Jer Neff MD at 06/05/2023 6:33 PM I personally saw and examined the patient on the same date of service as resident/fellow Zoie Hodges. I discussed the findings and therapeutic plan with the resident/fellow Zoie Hodges. I agree with the documentation, except for any edits/updates below. Teaching Physician's Revisions: none Cardiology Consult Note Reason for Consult: NSTEMI HPI: Lise Canales is a 68 y.o. female with PMH of CAD s/p Stenting of LAD ISR using DANNY in 2019, Hypertension, Hyperlipidemia, Advanced COPD s/p lobectomy, Polymyalgia rheumatica, who presented in setting of Nausea / Vomiting and Urinary symptoms to [facility], there she was found to have UTI, labs showed WBC of 17 and she was started on IV antibiotics, work up also showed high sensitive troponin of 62, She doesn't report any chest pain, or discomfort. She was started on heparin drip and was transferred here to [facility]. Today she reports no chest pain or discomfort, denies any exertional Chest pain, denies any shortness of breath any palpitation or dizziness. Troponin 0.06. EKG with No ST changes. Previous Echo with preserved EF. Cardiology ROS: GENERAL: + for fever, chills CARDIOVASCULAR: Denies chest pain, exertional dyspnea, orthopnea/PND, lower extremity edema, palpitations, lightheadedness/dizzi ness, syncope. RESPIRATORY: Denies SOB, coughing, wheezing GI: Denies abdominal pain, nausea/vomiting. PSYCH: Denies anxiety. Past Medical History She has a past medical history of Anemia, Back pain, Collagenous colitis, Coronary artery disease, Depression, Diabetes mellitus (CMS/HCC), Emphysema lung (CMS/HCC), Fibromyalgia, High cholesterol, Hypertension, Neck pain, Pneumothorax, Polymyalgia rheumatica (CMS/HCC), Raynaud disease, Sleep disorder, and Thoracic outlet syndrome. Surgical History She has a past surgical history that includes Thoracoscopy w/ talc pleurodesis; section, classic; Esophageal dilation; Esophagogastroduodeno scopy; Colonoscopy; Abdominal surgery; Chest tube insertion; and Coronary angioplasty with stent. Social History She reports that she quit smoking about 15 months ago. Her smoking use included cigarettes. She has never used smokeless tobacco. She reports that she does not currently use alcohol. No history on file for drug use. Family History Family History Problem Relation Name Age of Onset Stroke Father Stroke Father's Sister Coronary artery disease Paternal Grandmother Allergies Azithromycin and Latex Medications Medications Prior to Admission Medication Sig Dispense Refill Last Dose acetaminophen-codeine (Tylenol w/ Codeine #3) 300-30 mg tablet Take 1 tablet by mouth every 6 (six) hours if needed for severe pain (8-10 pain score) or moderate pain (4-7 pain score). aspirin 81 mg EC tablet in the morning. 06/03/2023 atorvastatin (Lipitor) 40 mg tablet Take 1 tablet (40 mg) by mouth at bedtime. 90 tablet 3 06/03/2023 cholecalciferol (Vitamin D-3) 50 MCG (2000 UT) tablet Take 50 mcg by mouth in the morning. 06/03/2023 DULoxetine (Cymbalta) [address] capsule Take 90 mg by mouth in the morning. 06/03/2023 eszopiclone (Lunesta) 3 mg tablet Take 3 mg by mouth if needed. 06/03/2023 fluticasone furoate-vilanteroL (Breo Ellipta) 200-25 mcg/dose inhaler Inhale 1 puff in the morning. 60 each 1 glipiZIDE (Glucotrol) 5 mg tablet Take 5 mg by mouth 1 (one) time each day. melatonin 5 mg tablet Take 5 mg by mouth at bedtime. 06/03/2023 metoprolol tartrate (Lopressor) 25 mg tablet Take 0.5 tablets (12.5 mg) by mouth in the morning and at bedtime for 183 doses. 90 tablet 3 06/03/2023 mirabegron 50 mg tablet extended release 24 hr Take 50 mg by mouth in the morning. omeprazole (PriLOSEC) [address] capsule Take 40 mg by mouth before breakfast. Do not crush or chew. predniSONE (Deltasone) 10 mg tablet Take 10 mg by mouth in the morning. 06/03/2023 pregabalin (Lyrica) 100 mg capsule 100 mg in the morning, at noon, and at bedtime. 06/03/2023 Last Recorded Vitals Patient Vitals for the past 24 hrs: BP Temp Temp src Pulse Resp SpO2 Height Weight 06/05/23 0813 -- -- -- -- -- 97 % -- -- 06/05/23 0307 -- -- -- 87 16 100 % -- -- 06/05/23 022 -- -- -- 99 -- -- -- -- 06/05/23 001 -- -- -- -- -- -- 1.626 m (5' 4 ) 49.9 kg (110 lb 0.2 oz) 06/05/2316 129/80 36.8 ???C (98.2 ???F) Temporal 98 22 97 % -- -- Physical Examination: GENERAL: AOx3, in no acute distress. HEAD: Atraumatic, normocephalic. EYES: JAYSON, EOMI. NECK: No JVD present. CARDIAC: RRR. No murmur, rubs, or gallops. RESPIRATORY: CTAB, no increased effort of breathing. ABDOMEN: Soft, nontender, nondistended. EXTREMITIES: No lower extremity edema, peripheral pulses are 2+ bilaterally. NEURO: (more content not included)... Normal [facility] ETHANOLon 06-05-2023 ETHANOL (MG/DL) IN SER/PLAS <10 Normal [facility] Comment on above: Performed By: #### L [id number] #### [facility] ([facility]) [address] [place] [address] ETHANOL CALCULATED (%) Normal [facility] Comment on above: Performed By: #### L [id number] #### [facility] ([facility]) [address] [place] [address] HEMOGLOBIN A1Con 06-05-2023 Glucose [Mass/Vol] 160 mg/dL Normal [facility] Comment on above: Performed By: #### L [id number] ####[facility] ([facility])[address] [place] [address] HbA1c (Bld) [Mass fraction] 7.2 % High 4.0-6.0 [facility] Comment on above: Performed By: #### L [id number] ####[facility] ([facility])[address] [place] [address] LACTIC ACID WITH 4 HOUR REFL EXon 06-05-2023 LACTATE (MMOL/L) IN SER/PLAS 1.1 mmol/L Normal 0.5-2.2 [facility] Comment on above: Performed By: #### L [id number] #### [facility] ([facility]) [address] [place] [address] LEGIONELLA ANTIGEN, URINEon 06-05-2023 LEGIONELLA AG, UR Negative Normal NEG [facility] Comment on above: Result Comment: L. p neumophila serogroup 1 antigen not detected. A negative result does not exclude infection with Leginella pnemophila serogroup 1 nor does it rule out other microbial-caused respiratory infections of disease caused by other serogroups of Legionella pneumophila. Test Performed by [employer] [address] [place] [id number] - Released 06/05/2023 12:36 Performed By: #### L [id number] ####[facility] [id number] [place] [address] LIPID PANELon 06-05-2023 CHOL/HDL 1.6 mg/dL Normal [facility] Comment on above: Performed By: #### L [id number] #### [facility] ([facility]) [address] [place] [address] Cholesterol [Mass/Vol] 74 mg/dL Low 120-200 [facility] Comment on above: Performed By: #### L [id number] #### [facility] ([facility]) [address] [place] [address] Magnesium [Mass/Vol] 65 mg/dL Normal 40-149 [facility] Comment on above: Result Comment: TRIG LYCERIDE REFERENCE RANGE: 20 YEARS AND OLDER CARDIOVASCULAR RISK LESS THAN 150 mg/dL LOW RISK 150 TO 199 mg/dL BORDERLINE RISK 200 mg/dL AND GREATER HIGH RISK Performed By: #### L [id number] #### [facility] ([facility]) [address] [place] [address] Magnesium [Mass/Vol] 14 mg/dL Normal 0-160 [facility] Comment on above: Performed By: #### L [id number] #### [facility] ([facility]) [address] [place] [address] Magnesium [Mass/Vol] 47 mg/dL Normal 23-92 [facility] Comment on above: Performed By: #### L [id number] #### [facility] ([facility]) [address] [place] [address] NON HDL CHOL. (LDL+VLDL) 27 Normal [facility] Comment on above: Performed By: #### L [id number] #### [facility] [facility]) [address] [place] [address] TOTAL VLDL-C 13 mg/dL Normal 0-40 [facility] Comment on above: Performed By: #### L [id number] #### [facility] ([facility]) [address] [place] [address] MAGNESIUMon 06-05-2023 Magnesium [Mass/Vol] 1.1 mg/dL Low 1.9-2.7 [facility] Comment on above: Performed By: #### L [id number] ####[facility] ([facility])[address] [place] [address] PHOSPHORUSon 06-05-2023 Magnesium [Mass/Vol] 2.8 mg/dL Normal 2.5-5.0 [facility] Comment on above: Performed By: #### L [id number] ####[facility] ([facility])[address] [place] [address] PROTIME-INRon 06-05-2023 INR IN PPP BY COAGULATION ASSAY 1.25 High 0.90-1.10 [facility] Comment on above: Result Comment: ACCC P RECOMMENDED INR FOR WARFARIN THERAPY CONDITION INR PROPHYLAXIS OF VENOUS THROMBOSIS 2-3 (HIGH-RISK SURGERY) TREATMENT OF VENOUS THROMBOSIS 2-3 TREATMENT OF PULMONARY EMBOLISM 2-3 PREVENTION OF SYSTEMIC EMBOLISM: 2-3 ACUTE MYOCARDIAL INFARCTION TISSUE HEART VALVES VALVULAR HEART DISEASE ATRIAL FIBRILLATION RECURRENT SYSTEMIC EMBOLISM MECHANICAL HEART VALVE 2.5-3.5 FROM: ORAL ANTICOAGULANTS. MECHANISM OF ACTION, CLINICAL EFFECTIVENESS, AND OPTIMAL THERAPEUTIC RANGE. CHEST 1995;108:231S-246S. Performed By: #### L [id number] #### [facility] ([facility]) [address] [place] [address] PROTHROMBIN TIME (PT) IN PPP BY COAGULATION ASSAY 15.7 Seconds High 12.3-14.8 [facility] Comment on above: Performed By: #### L [id number] #### [facility] ([facility]) [address] [place] [address] TOXICOLOGY PANEL URINEon AMPHETAMINE+METHAMPHE TAMINE SCREEN (PRESENCE) IN URINE Negative Normal Negative [facility] Comment on above: Performed By: #### L [id number] ####[facility] ([facility])[address] [place] [address] BARBITURATES PRESENCE IN URINE BY SCREEN METHOD Negative Normal Negative [facility] Comment on above: Performed By: #### L [id number] ####[facility] ([facility])[address] [place] [address] Benzodiazepines Ql (U) Negative Normal Negative [facility] Comment on above: Performed By: #### L [id number] ####[facility] ([facility])[address] [place] [address] CANNABINOID (PRESENCE) IN URINE BY SCREEN METHOD Negative Normal Negative [facility] Comment on above: Performed By: #### L [id number] ####[facility] ([facility] [place] [address] Cocaine Ql (U) Negative Normal Negative [facility] Comment on above: Performed By: #### L [id number] ####[facility] ([facility])[address] [place] [address] METHADONE (PRESENCE) IN URINE BY SCREEN METHOD Negative Normal Negative [facility] Comment on above: Performed By: #### L [id number] ####[facility] ([facility])[address] [place] [address] OPIATES (PRESENCE) IN URINE BY SCREEN METHOD Positive Abnormal Negative [facility] Comment on above: Performed By: #### L [id number] ####[facility] ([facility])[address] [place] [address] PHENCYCLIDINE PRESENCE IN URINE BY SCREEN METHOD Negative Normal Negative [facility] Comment on above: Performed By: #### L [id number] ####[facility] ([facility])[address] [place] [address] Propoxyphene Screen Ql (U) Negative Normal Negative [facility] Comment on above: Performed By: #### L [id number] ####[facility] ([facility])[address] [place] [address] TRICYCLIC ANTIDEPRESSANTS (PRESENCE) IN URINE Negative Normal Negative [facility] Comment on above: Performed By: #### L [id number] ####[facility] ([facility])[address] [place] [address] TROPONIN Ion 06-05-2023 Troponin I.cardiac [Mass/Vol] 0.04 ng/mL Normal 0.00-0.04 [facility] Comment on above: Performed By: #### L [id number] #### [facility] ([facility]) [address] [facility] [place] [address] Troponin I.cardiac [Mass/Vol] 0.06 ng/mL High 0.00-0.04 [facility] Comment on above: Performed By: #### L [id number] #### [facility] ([facility]) [address] [place] [address] TSH3 REFLEX TO FT4on 023 THYROTROPIN (MIU/L) IN SER/PLAS BY DETECTION LIMIT <= 0.05 MIU/L 1.46 mIU/L Normal 0.34-5.60 [facility] Comment on above: Performed By: #### L [id number] #### [facility] ([facility]) [address] [place] [address] URINALYSIS MICROSCOPIC WITH REFLEX CULTUREon 06-05-2023 CASTS IN URINE Normal [facility] Comment on above: Performed By: #### L [id number] #### [facility] ([facility]) [address] [place] [address] CRYSTALS IN URINE Normal [facility] Comment on above: Performed By: #### L [id number] #### [facility] ([facility]) [address] [place] [address] OTHER MICROSCOPIC ELEMENTS Normal [facility] Comment on above: Performed By: #### L [id number] #### [facility] ([facility]) [address] [place] [address] RBC (#/HPF) IN URINE SEDIMENT 6-10 Abnormal None Seen [facility] Comment on above: Performed By: #### L [id number] #### [facility] ([facility] [address] [place] [address] SQUAMOUS EPITHELIAL CELLS (#/HPF) IN URINE SEDIMENT Many Abnormal None Seen, Occasional [facility] Comment on above: Performed By: #### L [id number] #### [facility] ([facility]) [address] [place] [address] WBC (LEUKOCYTE) (#/HPF) IN URINE SEDIMENT >100 Abnormal None Seen [facility] Comment on above: Performed By: #### L [id number] #### [facility] ([facility] [address] [place] [address] URINALYSIS WITH REFLEX CULTU REon 06-05-2023 BILIRUBIN, TOTAL PRESENCE IN URINE Negative Normal Negative [facility] Comment on above: Performed By: #### L [id number] #### [facility] ([facility]) [address] [place] [address] Clarity (U) Clear Normal Clear [facility] Comment on above: Performed By: #### L [id number] #### [facility] ([facility]) [address] [place] [address] Color (U) Yellow Normal Yellow [facility] Comment on above: Performed By: #### L [id number] #### [facility] ([facility]) [address] [place] [address] Glucose (U) [Mass/Vol] Negative Normal Negative [facility] Comment on above: Performed By: #### L [id number] #### [facility] ([facility]) [address] [place] [address] HEMOGLOBIN PRESENCE IN URINE Moderate Abnormal Negative [facility] Comment on above: Performed By: #### L [id number] #### [facility] ([facility]) [address] [place] [address] Ketones Ql (U) Trace Abnormal Negative [facility] Comment on above: Performed By: #### L [id number] #### [facility] ([facility]) [address] [place] [address] LEUKOCYTE ESTERASE PRESENCE IN URINE BY TEST STRIP Large Abnormal Negative [facility] Comment on above: Performed By: #### L [id number] #### [facility] ([facility]) [address] [place] [address] NITRITE PRESENCE IN URINE Positive Abnormal Negative [facility] Comment on above: Performed By: #### L [id number] #### [facility] ([facility]) [address] [place] [address] pH (U) 6.0 [pH] Normal 5.0-8.0 [facility] Comment on above: Performed By: #### L [id number] #### [facility] ([facility]) [address] [place] [address] Protein (U) [Mass/Vol] 30 mg/dL Abnormal Negative [facility] Comment on above: Performed By: #### L [id number] #### [facility] ([facility]) [address] [place] [address] Specific gravity (U) [Rel density] 1.012 Low 1.015-1.020 [facility] Comment on above: Performed By: #### L [id number] #### [facility] ([facility]) [address] [place] [address] Consent for Procedure/Surger yon 04-17-2023 Consent for Procedure/Surgery [id number] .[id number] Normal [facility] Patient Educationon 04-16-20 Patient Education Urology Urethral Dilation Urethral dilation is a procedure to stretch open (dilate) the urethra. The urethra is the tube that drains urine from the bladder out of the body. In women, the urethra opens above the vaginal opening. In men, the urethra opens at the tip of the penis. Urethral dilation is usually done to treat narrowing of the urethra (urethral stricture), which can make it difficult to pass urine. Urethral dilation widens the urethra so that you can pass urine normally. Urethral dilation is done through the urethral opening. There are no incisions made during the procedure. Tell a health care provider about: ? Any allergies you have. ? All medicines you are taking, including vitamins, herbs, eye drops, creams, and vcvu-pgj-iesjwuc medicines. ? Any problems you or family members have had with anesthetic medicines. ? Any blood disorders you have. ? Any surgeries you have had. ? Any medical conditions you have. ? Whether you are or may be . What are the risks? Generally, this is a safe procedure. However, problems may occur, including: ? Bleeding. ? Infection. ? A return of urethral stricture, which requires repeating the dilation procedure. ? Damage to the urethra, which may require reconstructive surgery. ? Allergic reactions to medicines. What happens before the procedure? Medicines Ask your health care provider about: ? Changing or stopping your regular medicines. This is especially important if you are taking diabetes medicines or blood thinners. ? Taking medicines such as aspirin and ibuprofen. These medicines can thin your blood. Do not take these medicines unless your health care provider tells you to take them. ? Taking uoyk-jim-rtjzckl medicines, vitamins, herbs, and supplements. General instructions ? Follow instructions from your health care provider about eating or drinking restrictions. ? Plan to have someone take you home from the hospital or clinic. ? If you will be going home right after the procedure, plan to have someone with you for 24 hours. ? Ask your health care provider what steps will be taken to help prevent infection. These may include: ? Washing skin with a germ-killing soap. ? Taking antibiotic medicine. What happens during the procedure? ? An IV may be inserted into one of your veins. ? You will be given one or more of the following medicines: ? A local anesthetic to numb your urethral opening. This will be applied as a gel that will also lubricate the urethral opening. ? A sedative to help you relax. ? A thin tube with a light and camera on the end (cystoscope) will be inserted into your urethra. ? Your urethra will be rinsed (irrigated) with a germ-free (sterile) water solution. ? Narrow parts of your urethra will be stretched open using a dilator tool. Your surgeon will start with a very thin dilator, then use wider dilators as needed. ? A thin tube with an inflatable balloon on the tip may be inserted into your urethra. The balloon may be inflated to help stretch your urethra open. ? Your urethra will be irrigated. The procedure may vary among health care providers and hospitals. What can I expect after the procedure? ? After the procedure, it is common to have: ? Burning pain when urinating. ? Blood in your urine. ? A need to urinate frequently. ? You will be asked to urinate before you leave the hospital or clinic. ? Your urine flow should improve within a few days. Follow these instructions at home: Medicines ? Take fnme-xja-mbycasf and prescription medicines only as told by your health care provider. ? If you were prescribed an antibiotic medicine, take it as told by your health care provider. Do not stop taking the antibiotic even if you start to feel better. ? Ask your health care provider if the medicine prescribed to you: ? Requires you to avoid driving or using heavy machinery. ? Can cause constipation. You may need to take these actions to prevent or treat constipation: ? Take titj-gtn-pwuzjsr or prescription medicines. ? Eat foods that are high in fiber, such as beans, whole grains, and fresh fruits and vegetables. ? Limit foods that are high in fat and processed sugars, such as fried or sweet foods. General instructions ? Do not drive for 24 hours if you were given a sedative during your procedure. ? If you were sent home with a small, lubricated tube (catheter) to help keep your urethra open, follow your health care provider's instructions about how and when to use it. ? Drink enough fluid to keep your urine pale yellow. ? Return to your normal activities as told by your health care provider. Ask your health care provider what activities are safe for you. ? Keep all follow-up visits as told by your health care provider. This is important. Contact a health care provider if: ? Your urine is cloudy and smells bad. ? You develop new bleeding when you urinate. ? You pa (more content not included)... Normal [facility] Urology Office/Clinic Noteon 04-16-2023 Urology Office/Clinic Note Chief Complaint urethral stricture HPI Staff 6m IO UD DX: Urethral Stricture, Chronic Cystitis & Microscopic Hematuria *No Urology Meds Dysuria: some burning off and on Incomplete bladder emptying: yes Hematuria: no Frequency: yes Urgency: yes Nocturia: 3-4x Stream: starts ok and then turns to a dribble Leaking: yes Post void dripping: no Wearing pads/ Depends: pads and changes 5x daily Urge incontinence: no Stress incontinence: yes Incontinence without Sensory Awareness: no Abdominal pain: no Flank pain: no Sexual complaints: no History of Present Illness Tests reviewed: reviewed UA I have reviewed the previous health record information and history for this patient from . I have reviewed and verified the staff HPI to be accurate for this encounter. There have been no associated fever, chills, flank pain, or blood in the urine. Denies any urinary infections since last encounter. Review of Systems PHQ Score Initial Depression Screen Score: 0 ROS - Provider Constitutional: denies weight loss, denies hot flashes. Eyes: denies eye problems. Gastrointestinal: denies nausea, denies vomiting. Cardiovascular: denies chest pain or angina. Integumentary: no dryness Musculoskeletal: denies musculoskeletal symptoms. ENMT: denies otolaryngeal symptoms. Respiratory: no shortness of breath. Heme/Lymph: denies easy bleeding tendency, denies easy bruising tendency. Psychiatric: no confusion, no anxiety. Genitourinary: See HPI. Physical Exam Vitals & Measurements HR: 68(Peripheral) RR: 16 BP: 137/73 HT: 64 in HT: 163 cm WT: 42 kg WT: 92.4 lb BMI: 15.81 General Appearance: alert , no acute distress, well nourished, well developed female. Genitourinary: bladder nonpalpable, no flank pain. Procedure Operative Information Anesthesia Type: Local Procedure: Local Urethral Dilation Complications: None Surgical risks, benefits, details of the procedure have been explained to the patient. Full informed consent has been obtained. Intraoperative Information Prepped: Patient is brought back to the endoscopy suite. Patient is placed in supine/frogleg position. Patient prepped in the usual fashion with Betadine solution. 2% Xylocaine Jelly is placed per Urethra. The Urethra is: Tight indurated, inflamed The Urethra was dilated to: 20-30 Romanian with sounds. Specimens Removed: None Postoperative Information Patient is discharged home. Follow up arranged. Assessment/Plan 1. Unspecified urethral stricture, female (N35.12: Postinfective urethral stricture, not elsewhere classified, female) S/p UD 09/19/21. S/p UD 10/10/22 PVR today 0 ml. Pt had IO UD today without complications. Follow up in 4 mos for UD. All questions/concerns were discussed. Pt to call the office if she encounters any issues prior. Pt acknowledges understanding. Will schedule UD. The procedure risks, benefits, details, and treatment alternatives have been discussed with the patient. These include bleeding, infection, recurrent scar in over 50%, need for repeat dilation or other procedures, no symptom relief with dilation, among others. Full informed consent has been obtained. Will order Local anesthesia. 2. Chronic cystitis (N30.20: Other chronic cystitis without hematuria) Had a recent uti with sepsis and in ICU on a vent. she wants to help prevent utis as much as possible. -Will start Estradiol 0.1 mg/g cream. she will apply a small amount around the urethra 2 times per week at night in order to minimize irritation. SEs discussed. Rx sent to pharm on file. Pt to stop cream and notify office if she experiences breast tenderness and/or bleeding. 3. Asymptomatic microscopic hematuria (R31.21: Asymptomatic microscopic hematuria) Chronic. No UA given today. Follow-up With When Contact Information Ishan BROWN MD, TERRELLL In 4 months [facility] [address] [place] [address]- Additional Instructions: w/UD Patient Education Urethral Dilation I, Jillian Sargent , personally scribed for Dr. Brown on 04/16/2023 15:09:56. . Documentation recorded by the scribe, Jillian Sargent, accurately reflects the services(s) I performed and decisions made by me. Problem List/Past Medical History Ongoing Anticoagulated Asymptomatic microscopic hematuria Chronic cystitis Chronic GERD Chronic pain syndrome Cigarette smoker CTS (carpal tunnel syndrome) Depression Dysuria Emphysema/COPD Feeling of incomplete bladder emptying Fibromyalgia History of colitis Hypercholesteremia Hypertension Microscopic hematuria Migraine Nocturia Pneumaturia Polymyalgia rheumatica Post-void dribbling Dior syndrome Shortness of breath Suprapubic pain Unspecified urethral stricture, female Urge incontinence Urinary frequency Urinary urgency Historical No qualifying data Procedure/Surgical Histo (more content not included)... Normal [facility] Comment on above: Result Comment: Elec tronically Signed By: Ihsan BROWN MD\.br\Date and Time Signed: 04/16/23 15:14 EDT\.br\Electronically Co-Signed By: Jillian Sargent\.br\Date and Time Co-Signed: 04/16/23 15:[address] CHEST WO CONon 10-31-2022 CT CHEST WO CON EXAMINATION: CT CHES T WO CON HISTORY: Lung field abnormal ; follow-up left lung infiltrates and right hydropneumothorax COMPARISON: CTA chest 04/25/2022 TECHNIQUE: Axial, Coronal, and Sagittal images were created without the administration of IV contrast material. Dose reduction techniques were achieved by using automated exposure control and/or adjustment of mA and/or kV according to patient size and/or use of iterative reconstruction technique. FINDINGS: LUNGS: Moderate emphysematous changes. Stable scarring surgical changes within upper lobes bilaterally. PLEURA: No mass, effusion, or pneumothorax. Stable thin layer of hyperdense material within right posterior costophrenic angle. VASCULATURE: No abnormality. ROBLES: No mass or adenopathy. MEDIASTINUM: No mass or adenopathy. CARDIAC: No enlargement or pericardial thickening. AORTA: No aneurysm or dissection. CHEST WALL: No mass or axillary adenopathy. BONES: Old, healed/healing lateral right seventh rib fracture. LIMITED ABDOMEN: No suspicious findings. Limited images of the upper abdomen. OTHER: Negative. IMPRESSION: 1. Clearing of previously seen right hydropneumothorax. 2. Clearing of previously seen infiltrates/consolida tions. 3. Moderate emphysematous changes and parenchymal scarring or surgical changes. Electronically authenticated by: MIGUE REYNOSO Date: 2022-10-31 17:34 Normal [facility] HEMOGLOBINon 10-31-2022 Hemoglobin (Bld) [Mass/Vol] 11.8 g/dL Critically low 12.0-16.0 [facility] Comment on above: Performed By: #### [facility] #### [facility] [address] [place] [address] Dr. Kayley Hatfield Consent for Procedure/Surger yon 10-11-2022 Consent for Procedure/Surgery [id number]# 1.00CD:127 Normal [facility] BUNon 10-10-2022 Urea nitrogen [Mass/Vol] 13.0 mg/dL Normal 7.0-18.0 [facility] Comment on above: Performed By: #### L #### [facility] [address] [place] [address] Dr. Kayley Hatfield CALCIUMon 10-10-2022 Calcium [Mass/Vol] 9.7 mg/dL Normal 8.5-10.1 [facility] Comment on above: Performed By: #### L #### [facility] [address] [place] [address] Dr. Kayley Hatfield CREATININEon 10-10-2022 Creatinine [Mass/Vol] 1.19 mg/dL Critically high 0.55-1.02 [facility] Comment on above: Performed By: #### L DH #### [facility] [address] [place] [address] Dr. Kayley Hatfield EGFR-AF TURKS AND [place] ISLANDER 55 mL/min/1.73m2 Critically low >=60 [facility] Comment on above: Performed By: #### L DH #### [facility] [address] [place] [address] Dr. Kayley Hatfield EGFR-NON AF TURKS AND [place] ISLANDER 46 mL/min/1.73m2 Critically low >=60 [facility] Comment on above: Performed By: #### L DH #### [facility] [address] [place] [address] Dr. Kayley Hatfield CRPon 10-10-2022 CRP [Mass/Vol] mg/L Normal <=1.0 [facility] Comment on above: Performed By: #### L DH #### [facility] [address] [place] [address] Dr. Kayley Hatfield MAGNESIUMon 10-10-2022 Magnesium [Mass/Vol] 1.7 mg/dL Critically low 1.8-2.4 [facility] Comment on above: Performed By: #### L DH #### [facility] [address] [place] [address] Dr. Kayley Hatfield PHOSPHORUSon 10-10-2022 Phosphate [Mass/Vol] 4.0 mg/dL Normal 2.6-4.7 [facility] Comment on above: Performed By: #### L DH #### [facility] [address] [place] [address] Dr. Kayley Hatfield Patient Educationon 10-11-19 23 Patient Education Urology Urethral Dilation Urethral dilation is a procedure to stretch open (dilate) the urethra. The urethra is the tube that drains urine from the bladder out of the body. In women, the urethra opens above the vaginal opening. In men, the urethra opens at the tip of the penis. Urethral dilation is usually done to treat narrowing of the urethra (urethral stricture), which can make it difficult to pass urine. Urethral dilation widens the urethra so that you can pass urine normally. Urethral dilation is done through the urethral opening. There are no incisions made during the procedure. Tell a health care provider about: ? Any allergies you have. ? All medicines you are taking, including vitamins, herbs, eye drops, creams, and qfoz-ggh-llcjdgh medicines. ? Any problems you or family members have had with anesthetic medicines. ? Any blood disorders you have. ? Any surgeries you have had. ? Any medical conditions you have. ? Whether you are or may be . What are the risks? Generally, this is a safe procedure. However, problems may occur, including: ? Bleeding. ? Infection. ? A return of urethral stricture, which requires repeating the dilation procedure. ? Damage to the urethra, which may require reconstructive surgery. ? Allergic reactions to medicines. What happens before the procedure? Medicines Ask your health care provider about: ? Changing or stopping your regular medicines. This is especially important if you are taking diabetes medicines or blood thinners. ? Taking medicines such as aspirin and ibuprofen. These medicines can thin your blood. Do not take these medicines unless your health care provider tells you to take them. ? Taking owbf-fgm-bpzpnwe medicines, vitamins, herbs, and supplements. General instructions ? Follow instructions from your health care provider about eating or drinking restrictions. ? Plan to have someone take you home from the hospital or clinic. ? If you will be going home right after the procedure, plan to have someone with you for 24 hours. ? Ask your health care provider what steps will be taken to help prevent infection. These may include: ? Washing skin with a germ-killing soap. ? Taking antibiotic medicine. What happens during the procedure? ? An IV may be inserted into one of your veins. ? You will be given one or more of the following medicines: ? A local anesthetic to numb your urethral opening. This will be applied as a gel that will also lubricate the urethral opening. ? A sedative to help you relax. ? A thin tube with a light and camera on the end (cystoscope) will be inserted into your urethra. ? Your urethra will be rinsed (irrigated) with a germ-free (sterile) water solution. ? Narrow parts of your urethra will be stretched open using a dilator tool. Your surgeon will start with a very thin dilator, then use wider dilators as needed. ? A thin tube with an inflatable balloon on the tip may be inserted into your urethra. The balloon may be inflated to help stretch your urethra open. ? Your urethra will be irrigated. The procedure may vary among health care providers and hospitals. What can I expect after the procedure? ? After the procedure, it is common to have: ? Burning pain when urinating. ? Blood in your urine. ? A need to urinate frequently. ? You will be asked to urinate before you leave the hospital or clinic. ? Your urine flow should improve within a few days. Follow these instructions at home: Medicines ? Take ppsi-xqq-ravwqfk and prescription medicines only as told by your health care provider. ? If you were prescribed an antibiotic medicine, take it as told by your health care provider. Do not stop taking the antibiotic even if you start to feel better. ? Ask your health care provider if the medicine prescribed to you: ? Requires you to avoid driving or using heavy machinery. ? Can cause constipation. You may need to take these actions to prevent or treat constipation: ? Take ihlm-pdr-jdpstas or prescription medicines. ? Eat foods that are high in fiber, such as beans, whole grains, and fresh fruits and vegetables. ? Limit foods that are high in fat and processed sugars, such as fried or sweet foods. General instructions ? Do not drive for 24 hours if you were given a sedative during your procedure. ? If you were sent home with a small, lubricated tube (catheter) to help keep your urethra open, follow your health care provider's instructions about how and when to use it. ? Drink enough fluid to keep your urine pale yellow. ? Return to your normal activities as told by your health care provider. Ask your health care provider what activities are safe for you. ? Keep all follow-up visits as told by your health care provider. This is important. Contact a health care provider if: ? Your urine is cloudy and smells bad. ? You develop new bleeding when you urinate. ? You pa (more content not included)... Normal [facility] SED RATE WESTERGRENon 2022 SED RATE 25 mm/hr Normal <=30 [facility] Comment on above: Performed By: #### P RTELEC #### [facility] [address] [address] [address] Kayley Hatfield Urology Office/Clinic Noteon 10-10-2022 Urology Office/Clinic Note Chief Complaint 7 month follow up w/ IO UD HPI Staff Pt is here today for 7 month follow up w/ IO UD. Previous DX: chronic cystitis, dysuria, feeling of incomplete bladder emptying, microscopic hematuria, nocturia, pneumaturia, post-void dribbling, unspecified urethral stricture female, urge incontinence, urinary frequency, urinary urgency. S/P Dilation of urethra done 03/21/21, Cysto done 09/22/19. PVR today is 0ml. Dysuria: denies pain and burning Incomplete bladder emptying: sometimes Hematuria: denies visible blood Frequency: every hour Urgency: yes Nocturia: 3-4x a night Stream: weak stream Leaking: yes Post void dripping: yes Wearing pads/ Depends: wears pad daily, changes 4-5x sometimes Urge incontinence: denies Stress incontinence: yes Incontinence without Sensory Awareness: denies Abdominal pain: Pt states her PCP told her she may have a small hernia Flank pain: denies History of Present Illness Tests reviewed: reviewed UA. I have reviewed the previous health record information and history for this patient from Dr. Brown. I have reviewed and verified the staff HPI to be accurate for this encounter. There have been no associated fever, chills, flank pain, or blood in the urine. Denies any urinary infections since last encounter. Review of Systems PHQ Score Initial Depression Screen Score: 0 ROS - Provider Constitutional: denies weight loss, denies hot flashes. Eyes: denies eye problems. Gastrointestinal: denies nausea, denies vomiting. Cardiovascular: denies chest pain or angina. Integumentary: no dryness Musculoskeletal: denies musculoskeletal symptoms. ENMT: denies otolaryngeal symptoms. Respiratory: no shortness of breath. Heme/Lymph: denies easy bleeding tendency, denies easy bruising tendency. Psychiatric: no confusion, no anxiety. Genitourinary: See HPI. Physical Exam Vitals & Measurements HR: 64(Peripheral) BP: 160/88 HT: 64 in HT: 163 cm WT: 38.0 kg WT: 83.6 lb BMI: 14.3 General Appearance: alert , no acute distress, well nourished, well developed female. Genitourinary: bladder nonpalpable, no flank pain. Procedure Operative Information Anesthesia Type: Local Procedure: Local Urethral Dilation Complications: None Surgical risks, benefits, details of the procedure have been explained to the patient. Full informed consent has been obtained. Intraoperative Information Prepped: Patient is brought back to the endoscopy suite. Patient is placed in modified dorso/lithotomy position. Patient prepped in the usual fashion with Betadine solution. 2% Xylocaine Jelly is placed per Urethra. The Urethra is: Tight The Urethra was dilated to: 22-30 Romanian with sounds. Specimens Removed: None Postoperative Information Patient is discharged home. Follow up arranged. Assessment/Plan 1. Unspecified urethral stricture, female (N35.12: Postinfective urethral stricture, not elsewhere classified, female) Last UD 09/19/21. PVR today 0 ml. Pt had IO UD today without complications. Follow up 6 mos UD or sooner if needed. Pt understands and agrees with plan. 2. Chronic cystitis (N30.20: Other chronic cystitis without hematuria) No recent infections. 3. Asymptomatic microscopic hematuria (R31.21: Asymptomatic microscopic hematuria) Chronic. UA today shows small blood and trace leuks. Follow-up With When Contact Information KEVIN SALDIVAR, Ihsan Wild, [facility] [address], [place] [id number]- Additional Instructions: 6 mos UD Patient Education Urethral Dilation I, Katarina Bose, personally scribed for Dr. Brown on 10/10/2022 10:01:12. . Documentation recorded by the scribe, Katarina Bose, accurately reflects the services(s) I performed and decisions made by me. Authenticated by Dr. Brown on 10/10/2022 10:02:16. Problem List/Past Medical History Ongoing Anticoagulated Asymptomatic microscopic hematuria Chronic cystitis Chronic GERD Chronic pain syndrome Cigarette smoker CTS (carpal tunnel syndrome) Depression Dysuria Emphysema/COPD Feeling of incomplete bladder emptying Fibromyalgia History of colitis Hypercholesteremia Hypertension Microscopic hematuria Migraine Nocturia Pneumaturia Polymyalgia rheumatica Post-void dribbling Dior syndrome Shortness of breath Suprapubic pain Unspecified urethral stricture, female Urge incontinence Urinary frequency Urinary urgency Historical No qualifying data Procedure/Surgical History Dilation of urethra (03/21/2021), Cystoscopy (09/22/2019), Exploratory laparotomy (04/09/2019), Cystourethroscopy with dilation of urethral stricture (09/07/2015), Urodynamics (10/29/2014), section, Cystoscopy, Dilation and stretching of urethra, Lobectomy of lung, Stent placement. Medications aspirin, 81 mg, Oral, Daily atorvastatin 40 mg Tab, Oral, Daily Cymbalta, 90 mg, Oral, Daily Lune (more content not included)... Normal [facility] Comment on above: Result Comment: Elec tronically Signed By: Ihsan BROWN MD\.br\Date and Time Signed: 10/10/22 10:02 EDT\.br\Electronically Co-Signed By: Katarina Bose\.br\Date and Time Co-Signed: 10/10/22 10:01 EDT Office Visiton 08-14-2022 Follow-up visit [id number] Covert,Lise Rustam 1955 F Date Provider Department Center 08/14/2022 JER LARRY [facility] Family History Problem Relation Age of Onset Stroke Father Stroke Father's Sister Coronary artery disease Paternal Grandmother Family Status - Relation Status Age at Father Father's Sister Paternal Grandmother Level of Service:89686 DC OFFICE/OUTPATIENT ESTABLISHED MOD MDM 30-39 MIN Reason for Visit and Comments: Coronary Artery Disease [187] Hyperlipidemia [182] Normal [facility] CBC AUTO DIFFon 05-01-2022 BASO # 0.1 103/ul Normal 0.0-0.1 [facility] Comment on above: Performed By: #### P RBC #### [facility] [address] [address] [address] Kayley Hatfield Basophils/100 WBC (Bld) 0.5 % Normal 0.2-2.0 [facility] Comment on above: Performed By: #### P RBC #### [facility] [address] [address] [address] Kayley Hatfield EO # 0.2 103/ul Normal 0.0-0.7 [facility] Comment on above: Performed By: #### P RBC #### [facility] [address] [address] [address] Kayley Hatfield Eosinophils/100 WBC (Bld) 1.2 % Normal 0.9-7.0 [facility] Comment on above: Performed By: #### P RBC #### [facility] [address] [address] [address] Kayley Hatfield Erythrocyte distribution width (RBC) [Ratio] 14.9 % Normal 11.0-15.0 [facility] Comment on above: Performed By: #### P RBC #### [facility] [address] [address] [address] Kayley Hatfield Hematocrit (Bld) [Volume fraction] 34.2 % Critically low 36.0-48.0 [facility] Comment on above: Performed By: #### P RBC #### [facility] [address] [address] [address] Kayley Hatfield Hemoglobin (Bld) [Mass/Vol] 10.3 g/dL Critically low 12.0-16.0 [facility] Comment on above: Performed By: #### P RBC #### [facility] [address] [place] [address] Dr. Kayley Hatfield IG # 0.19 10e3/ul Critically high 0.00-0.03 [facility] Comment on above: Performed By: #### P RBC #### [facility] [address] [address] [address] Kayley Hatfield IG % 1.3 % Critically high 0.0-0.5 [facility] Comment on above: Performed By: #### P RBC #### [facility] [address] [place] [address] Dr. Kayley Hatfield LYMPH # 1.1 103/ul Critically low 1.2-3.8 [facility] Comment on above: Performed By: #### P RBC #### [facility] [address] [place] [address] Dr. Kayley Hatfield Lymphocytes/100 WBC (Bld) 7.3 % Critically low 20.5-60.0 [facility] Comment on above: Performed By: #### P RBC #### [facility] [address] [address] [address] Kayley Hatfield MANUAL DIFF REQ NO Normal [facility] Comment on above: Performed By: #### P RBC #### [facility] [address] [address] [address] Kayley Hatfield MCH (RBC) [Entitic mass] 28.4 pg Normal 26.7-34.0 [facility] Comment on above: Performed By: #### P RBC #### [facility] [address] [address] [address] Kayley Hatfield MCHC (RBC) [Mass/Vol] 30.1 g/dL Normal 29.9-35.2 [facility] Comment on above: Performed By: #### P RBC #### [facility] [address] [address] [address] Kayley Hatfield MCV (RBC) [Entitic vol] 94.2 fL Normal 81.0-99.0 [facility] Comment on above: Performed By: #### P RBC #### [facility] [address] [place] [address] Dr. Kayley Hatfield MONO # 0.6 103/ul Normal 0.3-0.8 [facility] Comment on above: Performed By: #### P RBC #### [facility] [address] [place] [address] Dr. Kayley Hatfield Monocytes/100 WBC (Bld) 4.0 % Normal 1.7-12.0 [facility] Comment on above: Performed By: #### P RBC #### [facility] [address] [place] [address] Dr. Kayley Hatfield NEUT # 12.5 103/ul Critically high 1.4-6.5 [facility] Comment on above: Performed By: #### P RBC #### [facility] [address] [place] [address] Dr. Kayley Hatfield Neutrophils/100 WBC (Bld) 85.7 % Critically high 43.0-75.0 [facility] Comment on above: Performed By: #### P RBC #### [facility] [address] [place] [address] Dr. Kayley Hatfield Platelet mean volume (Bld) [Entitic vol] 8.5 fL Critically low 9.5-13.5 [facility] Comment on above: Performed By: #### P RBC #### [facility] [address] [address] [address] Kayley Hatfield PLT 574 103/ul Critically high 150-450 [facility] Comment on above: Performed By: #### P RBC #### [facility] [address] [address] [address] Kayley Hatfield RBC 3.63 106/ul Critically low 4.20-5.40 [facility] Comment on above: Performed By: #### P RBC #### [facility] [address] [address] [address] Kayley Hatfield WBC 14.6 103/ul Critically high 4.0-11.0 [facility] Comment on above: Performed By: #### P RBC #### [facility] [address] [place] [address] Dr. Kayley Hatfield MAGNESIUMon 05-01-2022 Magnesium [Mass/Vol] 2.1 mg/dL Normal 1.8-2.4 [facility] Comment on above: Performed By: #### O BSCRN #### [facility] [address] [place] [address] Dr. Kayley Hatfield PROF CHEM 8 (BAS METB)on Anion gap [Moles/Vol] 8.6 mmol/L Normal [facility] Comment on above: Performed By: #### O BSCRN #### [facility] [address] [place] [address] Dr. Kayley Hatfield Calcium [Mass/Vol] 9.0 mg/dL Normal 8.5-10.1 [facility] Comment on above: Performed By: #### O BSCRN #### [facility] [address] [address] [address] Kayley Hatfield Chloride [Moles/Vol] 101 mmol/L Normal 98-107 [facility] Comment on above: Performed By: #### O BSCRN #### [facility] [address] [place] [address] Dr. Kayley Hatfield CO2 [Moles/Vol] 33.0 mmol/L Critically high 21.0-32.0 [facility] Comment on above: Performed By: #### O BSCRN #### [facility] [address] [address] [address] Kayley Hatfield Creatinine [Mass/Vol] 0.94 mg/dL Normal 0.55-1.02 [facility] Comment on above: Performed By: #### O BSCRN #### [facility] [address] [address] [address] Kayley Hatfield EGFR-AF TURKS AND CAICOS ISLANDER >60 Normal >=60 [facility] Comment on above: Performed By: #### O BSCRN #### [facility] [address] [address] [address] Kayley Hatfield EGFR-NON AF TURKS AND CAICOS ISLANDER >60 Normal >=60 [facility] Comment on above: Performed By: #### O BSCRN #### [facility] [address] [address] [address] Kayley Hatfield Glucose [Mass/Vol] 143 mg/dL Critically high 74-106 [facility] Comment on above: Performed By: #### O BSCRN #### [facility] [address] [address] [address] Kayley Hatfield Potassium [Moles/Vol] 4.6 mmol/L Normal 3.5-5.1 [facility] Comment on above: Performed By: #### O BSCRN #### [facility] [address] [address] [address] Kayley Hatfield Sodium [Moles/Vol] 138 mmol/L Normal 136-145 [facility] Comment on above: Performed By: #### O BSCRN #### [facility] [address] [address] [address] Kayley Hatfield Urea nitrogen [Mass/Vol] 15.0 mg/dL Normal 7.0-18.0 [facility] Comment on above: Performed By: #### O BSCRN #### [facility] [address] [address] [address] Kayley Hatfield Urea nitrogen/Creatinine [Mass ratio] 16.0 mg/mg Normal [facility] Comment on above: Performed By: #### O BSCRN #### [facility] [address] [address] [address] Kayley Hatfield CBC AUTO DIFFon 04-26-2022 BASO # 0.1 103/ul Normal 0.0-0.1 [facility] Comment on above: Performed By: #### P RBC #### [facility] [address] [address] [address] Kayley Hatfield Basophils/100 WBC (Bld) 0.5 % Normal 0.2-2.0 [facility] Comment on above: Performed By: #### P RBC #### [facility] [address] [address] [address] Kayley Hatfield EO # 0.2 103/ul Normal 0.0-0.7 [facility] Comment on above: Performed By: #### P RBC #### [facility] [address] [address] [address] Kayley Hatfield Eosinophils/100 WBC (Bld) 1.8 % Normal 0.9-7.0 [facility] Comment on above: Performed By: #### P RBC #### [facility] [address] [address] [address] Kayley Hatfield Erythrocyte distribution width (RBC) [Ratio] 14.7 % Normal 11.0-15.0 [facility] Comment on above: Performed By: #### P RBC #### [facility] [address] [address] [address] Kayley Hatfield Hematocrit (Bld) [Volume fraction] 32.0 % Critically low 36.0-48.0 [facility] Comment on above: Performed By: #### P RBC #### [facility] [address] [address] [address] Kayley Hatfield Hemoglobin (Bld) [Mass/Vol] 9.9 g/dL Critically low 12.0-16.0 [facility] Comment on above: Performed By: #### P RBC #### [facility] [address] [address] [address] Kayley Hatfield IG # 0.07 10e3/ul Critically high 0.00-0.03 [facility] Comment on above: Performed By: #### P RBC #### [facility] [address] [address] [address] Kayley Hatfield IG % 0.6 % Critically high 0.0-0.5 [facility] Comment on above: Performed By: #### P RBC #### [facility] [address] [address] [address] Kayley Hatfield LYMPH # 1.2 103/ul Normal 1.2-3.8 [facility] Comment on above: Performed By: #### P RBC #### [facility] [address] [place] [address] Dr. Kayley Hatfield Lymphocytes/100 WBC (Bld) 10.9 % Critically low 20.5-60.0 [facility] Comment on above: Performed By: #### P RBC #### [facility] [address] [place] [address] Dr. Kayley Hatfield MANUAL DIFF REQ NO Normal [facility] Comment on above: Performed By: #### P RBC #### [facility] [address] [place] [address] Dr. Kayley Hatfield MCH (RBC) [Entitic mass] 28.4 pg Normal 26.7-34.0 [facility] Comment on above: Performed By: #### P RBC #### [facility] [address] [place] [address] Dr. Kayley Hatfield MCHC (RBC) [Mass/Vol] 30.9 g/dL Normal 29.9-35.2 [facility] Comment on above: Performed By: #### P RBC #### [facility] [address] [place] [address] Dr. Kayley Hatfield MCV (RBC) [Entitic vol] 92.0 fL Normal 81.0-99.0 [facility] Comment on above: Performed By: #### P RBC #### [facility] [address] [place] [address] Dr. Kayley Hatfield MONO # 1.4 103/ul Critically high 0.3-0.8 [facility] Comment on above: Performed By: #### P RBC #### [facility] [address] [address] [address] Kayley Hatfield Monocytes/100 WBC (Bld) 11.9 % Normal 1.7-12.0 [facility] Comment on above: Performed By: #### P RBC #### [facility] [address] [address] [address] Kayley Hatfield NEUT # 8.4 103/ul Critically high 1.4-6.5 [facility] Comment on above: Performed By: #### P RBC #### [facility] [address] [address] [address] Kayley Hatfield Neutrophils/100 WBC (Bld) 74.3 % Normal 43.0-75.0 [facility] Comment on above: Performed By: #### P RBC #### [facility] [address] [address] [address] Kayley Hatfield Platelet mean volume (Bld) [Entitic vol] 8.8 fL Critically low 9.5-13.5 [facility] Comment on above: Performed By: #### P RBC #### [facility] [address] [address] [address] Kayley Hatfield PLT 953 103/ul Critically high 150-450 [facility] Comment on above: Performed By: #### P RBC #### [facility] [address] [address] [address] Kayley Hatfield RBC 3.48 106/ul Critically low 4.20-5.40 [facility] Comment on above: Performed By: #### P RBC #### [facility] [address] [address] [address] Kayley Hatfield WBC 11.3 103/ul Critically high 4.0-11.0 [facility] Comment on above: Performed By: #### P RBC #### [facility] [address] [address] [address] Kayley Hatfield POINT OF CARE GLUCOSEon 04-08 Glucose [Mass/Vol] 225 mg/dL Critically high 74-106 [facility] Comment on above: Performed By: #### B LDCX1 #### [facility] [address] [address] [address] Kayley Hatfield PROF CHEM 8 (BAS METB)on Anion gap [Moles/Vol] 10.7 mmol/L Normal [facility] Comment on above: Performed By: #### P RBC #### [facility] [address] [address] [address] Kayley Hatfield Calcium [Mass/Vol] 9.2 mg/dL Normal 8.5-10.1 [facility] Comment on above: Performed By: #### P RBC #### [facility] [address] [place] [address] Dr. Kayley Hatfield Chloride [Moles/Vol] 103 mmol/L Normal 98-107 [facility] Comment on above: Performed By: #### P RBC #### [facility] [address] [place] [address] Dr. Kayley Hatfield CO2 [Moles/Vol] 29.2 mmol/L Normal 21.0-32.0 [facility] Comment on above: Performed By: #### P RBC #### [facility] [address] [place] [address] Dr. Kayley Hatfield Creatinine [Mass/Vol] 0.85 mg/dL Normal 0.55-1.02 [facility] Comment on above: Performed By: #### P RBC #### [facility] [address] [place] [address] Dr. Kayley Hatfield EGFR-AF TURKS AND CAICOS ISLANDER >60 Normal >=60 [facility] Comment on above: Performed By: #### P RBC #### [facility] [address] [address] [address] Kayley Hatfield EGFR-NON AF TURKS AND CAICOS ISLANDER >60 Normal >=60 [facility] Comment on above: Performed By: #### P RBC #### [facility] [address] [place] [address] Dr. Kayley Hatfield Glucose [Mass/Vol] 81 mg/dL Normal 74-106 [facility] [facility] Comment on above: Performed By: #### P RBC #### [facility] [address] [place], [place] [address] Dr. Kayley Hatfield Potassium [Moles/Vol] 3.9 mmol/L Normal 3.5-5.1 [facility] Comment on above: Performed By: #### P RBC #### [facility] [address] [place], [place] [address] Dr. Kayley Hatfield Sodium [Moles/Vol] 139 mmol/L Normal 136-145 [facility] Comment on above: Performed By: #### P RBC #### [facility] [address] [place], [place] [address] Dr. Kayley Hatfield Urea nitrogen [Mass/Vol] 9.0 mg/dL Normal 7.0-18.0 [facility] Comment on above: Performed By: #### P RBC #### [facility] [address] [place] [address] [address] Kayley Hatfield Urea nitrogen/Creatinine [Mass ratio] 10.6 mg/mg Normal [facility] Comment on above: Performed By: #### P RBC #### [facility] [address] [address] [address] Kayley Hatfield XR CHEST 2 Von 04-26-2022 XR CHEST 2 V EXAMINATION: XR CHES T 2 V HISTORY: SHORTNESS OF BREATH ; follow-up pneumothorax COMPARISON: CTA chest 04/25/2022, XR chest 03/30/2022 FINDINGS: LUNGS: Underexpanded lungs with chronic interstitial changes. Right apical pneumothorax, 2.2 cm in thickness along with apical fluid collection 1.5 cm in thickness. Right midlung 2.8 cm opacity felt to correspond to fluid collection within right midlung at site of prior chest tube insertion. VASCULATURE: No increased pulmonary vasculature. PLEURA: See above. CARDIAC: No cardiomegaly or cardiac silhouette abnormality. MEDIASTINUM: No visible mass or adenopathy. BONES: No fracture or visible bone lesion. OTHER: Negative. IMPRESSION: 1. Right apical pneumothorax and fluid collection; not appreciably changed compared to yesterday's CTA chest study allowing for differences in technique. Electronically authenticated by: MIGUE REYNOSO Date: 2022-04-26 09:59 Normal [facility] BNPon 04-25-2022 Natriuretic peptide B (Bld) [Mass/Vol] 234.0 pg/mL Normal <=900.0 [facility] Comment on above: Performed By: #### P RTELEC #### [facility] [address] [address] [address] Kayley Hatfield CBC AUTO DIFFon 04-25-2022 BASO # 0.1 103/ul Normal 0.0-0.1 [facility] Comment on above: Performed By: #### P RBC #### [facility] [address] [place] [address] Dr. Kayley Hatfield Basophils/100 WBC (Bld) 0.4 % Normal 0.2-2.0 [facility] Comment on above: Performed By: #### P RBC #### [facility] [address] [place] [address] Dr. Kayley Hatfield EO # 0.2 103/ul Normal 0.0-0.7 [facility] Comment on above: Performed By: #### P RBC #### [facility] [address] [place] [address] Dr. Kayley Hatfield Eosinophils/100 WBC (Bld) 1.0 % Normal 0.9-7.0 [facility] Comment on above: Performed By: #### P RBC #### [facility] [address] [place] [address] Dr. Kayley Hatfield Erythrocyte distribution width (RBC) [Ratio] 14.8 % Normal 11.0-15.0 [facility] Comment on above: Performed By: #### P RBC #### [facility] [address] [place] [address] Dr. Kayley Hatfield Hematocrit (Bld) [Volume fraction] 35.4 % Critically low 36.0-48.0 [facility] Comment on above: Performed By: #### P RBC #### [facility] [address] [place] [address] Dr. Kayley Hatfield Hemoglobin (Bld) [Mass/Vol] 10.9 g/dL Critically low 12.0-16.0 [facility] Comment on above: Performed By: #### P RBC #### [facility] [address] [place] [address] Dr. Kayley Hatfield IG # 0.08 10e3/ul Critically high 0.00-0.03 [facility] Comment on above: Performed By: #### P RBC #### [facility] [address] [place] [address] Dr. Kayley Hatfield IG % 0.5 % Normal 0.0-0.5 [facility] Comment on above: Performed By: #### P RBC #### [facility] [address] [place] [address] Dr. Kayley Hatfield LYMPH # 1.2 103/ul Normal 1.2-3.8 [facility] Comment on above: Performed By: #### P RBC #### [facility] [address] [place] [address] Dr. Kayley Hatfield Lymphocytes/100 WBC (Bld) 7.4 % Critically low 20.5-60.0 [facility] Comment on above: Performed By: #### P RBC #### [facility] [address] [place] [address] Dr. Kayley Hatfield MANUAL DIFF REQ NO Normal [facility] Comment on above: Performed By: #### P RBC #### [facility] [address] [place] [address] Dr. Kayley Hatfield MCH (RBC) [Entitic mass] 27.9 pg Normal 26.7-34.0 [facility] Comment on above: Performed By: #### P RBC #### [facility] [address] [place] [address] Dr. Kayley Hatfield MCHC (RBC) [Mass/Vol] 30.8 g/dL Normal 29.9-35.2 [facility] Comment on above: Performed By: #### P RBC #### [facility] [address] [place] [address] Dr. Kayley Hatfield MCV (RBC) [Entitic vol] 90.5 fL Normal 81.0-99.0 [facility] Comment on above: Performed By: #### P RBC #### [facility] [address] [place] [address] Dr. Kayley Hatfield MONO # 1.5 103/ul Critically high 0.3-0.8 [facility] Comment on above: Performed By: #### P RBC #### [facility] [address] [place] [address] [address] Kayley Hatfield Monocytes/100 WBC (Bld) 8.7 % Normal 1.7-12.0 [facility] Comment on above: Performed By: #### P RBC #### [facility] [address] [address] [address] Kayley Hatfield NEUT # 13.8 103/ul Critically high 1.4-6.5 [facility] Comment on above: Performed By: #### P RBC #### [facility] [address] [place] [address] Dr. Kayley Hatfield Neutrophils/100 WBC (Bld) 82.0 % Critically high 43.0-75.0 [facility] Comment on above: Performed By: #### P RBC #### [facility] [address] [place] [address] Dr. Kayley Hatfield Platelet mean volume (Bld) [Entitic vol] 8.9 fL Critically low 9.5-13.5 [facility] Comment on above: Performed By: #### P RBC #### [facility] [address] [place] [address] Dr. Kayley Hatfield PLT 1076 103/ul Critically high 150-450 [facility] Comment on above: Performed By: #### P RBC #### [facility] [address] [place] [address] Dr. Kayley Hatfield RBC 3.91 106/ul Critically low 4.20-5.40 [facility] Comment on above: Performed By: #### P RBC #### [facility] [address] [place] [address] Dr. Kayley Hatfield WBC 16.8 103/ul Critically high 4.0-11.0 [facility] Comment on above: Performed By: #### P RBC #### [facility] [address] [place] [address] HEAD WO CONon 04-25-2022 CT HEAD WO CON EXAMINATION: CT HEAD WO CON HISTORY: DISORIENTATION, UNSPECIFIED , headache, not feeling well, shortness of breath COMPARISON: CT head 10/13/2017 TECHNIQUE: Axial CT images were obtained without IV contrast. Dose reduction techniques were achieved by using automated exposure control and/or adjustment of mA and/or kV according to patient size and/or use of iterative reconstruction technique. FINDINGS: BRAIN: No edema, hemorrhage, mass, acute infarction, or inappropriate atrophy. CSF SPACES: No hydrocephalus, subarachnoid hemorrhage, or mass. Appropriate for age. SKULL: No fracture, mass, or other significant visible lesion. SINUSES: No significant mucosal thickening or fluid on the limited views. ORBITS: No appreciable abnormality on the limited views. OTHER: Negative IMPRESSION: 1. Normal examination. Electronically authenticated by: MIGUE REYNOSO Date: 2022-04-25 14:59 Normal [facility] CTA CHEST WO W CONon 022 CTA CHEST WO W CON EXAMINATION: CTA CHEST WO W CON HISTORY: SHORTNESS OF BREATH , headache, not feeling well COMPARISON: CT chest 03/07/2022 XR chest 03/30/2022 TECHNIQUE: Multi-planar CT images were created with IV contrast. Axial, Coronal, and Sagittal images. Dose reduction techniques were achieved by using automated exposure control and/or adjustment of mA and/or kV according to patient size and/or use of iterative reconstruction technique. 3-D reconstruction was performed on a separate workstation. FINDINGS: VASCULATURE: No pulmonary embolism or abnormal opacity. LUNGS: 1.8 cm diameter tubular fluid collection extending from right hilum to the anterior lateral chest wall tracking near the lower aspect of the major fissure; possibly representing tract of the recent chest tube which is no longer present. Several new patchy opacities scattered within left lung. Mild infiltrates versus atelectasis within the posterior dependent lung bases. Moderate emphysematous changes and scattered areas of scarring. PLEURA: Small to moderate right apical pneumothorax with a loculated 6.3 x 3.9 x 3.6 cm fluid collection within the lung apex. Thin, 2.5 mm thick hyperdensity within posterior dependent right pleural space 5.5 cm in width and 3.7 cm cephalad caudad; appearance suggests IV contrast within the pleural space versus surgical mesh. ROBLES: No mass or adenopathy. MEDIASTINUM: No mass or adenopathy. CARDIAC: No enlargement, pericardial effusion, or pericardial thickening. AORTA: No aneurysm or dissection. CHEST WALL: No mass or axillary adenopathy. BONES: No bone lesion or fracture. LIMITED ABDOMEN: No suspicious findings. Limited images of the upper abdomen. OTHER: Negative. IMPRESSION: 1. Moderate right apical pneumothorax which is partially filled with layering fluid which tracks along the lateral chest wall and into the tract of the prior chest tube, which is no longer present. 2. There is a 2 mm thick hyperdense area within the posterior right pleural space at the lung base; IV contrast from active bleeding versus possible mesh from recent surgery. No known surgical changes since the 03/07/2022 CT study, raising concern for slow active bleeding in the pleural space. 3. New patchy, spiculated opacities within left lung and mild atelectasis versus infiltrates within posterior lung bases suspicious for pneumonia. 4. Moderate emphysematous changes. 5. No pulmonary embolism. Electronically authenticated by: MIGUE REYNOSO Date: 2022-04-25 15:18 Normal [facility] Covid-19 PCR (CVDTB)on 04-08 SARS-CoV-2 (COVID-19) RNA ELBA+probe Ql (Unsp spec) Not detected Normal NOT DETECTED [facility] Comment on above: Result Comment: When diagnostic testing is negative, the possibility of a false negative should be considered in the context of a patient's recent exposures and the presence of clinical signs and symptoms consistent with SARS-CoV-2. This test is not yet approved or cleared by the [place] FDA. When there are no FDA-approved or cleared tests available, and other criteria are met, FDA can make tests available under an emergency access mechanism called an Emergency Use Authorization (EUA). The EUA for this test is supported by the [place] of Health and Human Service's declaration that circumstances exist to justify the emergency use of in vitro diagnostics for the detection and/or diagnosis of the virus that causes COVID-19. This EUA will remain in effect for the duration of the COVID-19 declaration justifying emergency of IVDs, unless it is terminated or revoked by the FDA (after which the test may no longer be used). Performed By: #### [facility] #### [facility] [address] [place] [address] Dr. Kayley Hatfield ER URINE PROFILEon 2 Bilirubin Ql (U) Negative Normal NEGATIVE [facility] Comment on above: Performed By: #### C VDTBH #### [facility] [address] [place] [address] Dr. Kayley Hatfield Clarity (U) CLEAR Normal CLEAR [facility] Comment on above: Performed By: #### C VDTBH #### [facility] [address] [place] [address] Dr. Kayley Hatfield Color (U) LT. YELLOW Normal YELLOW [facility] Comment on above: Performed By: #### C VDTBH #### [facility] [address] [place] [address] Dr. Kayley [place] A micrscopic examination will be performed if indicated. Normal [facility] Comment on above: Performed By: #### C VDTBH #### [facility] [address] [place] [address] Dr. Kayley Hatfield Glucose Ql (U) Negative Normal NEGATIVE [facility] Comment on above: Performed By: #### C VDTBH #### [facility] [address] [place] [address] Dr. Kayley Hatfield Hemoglobin Ql (U) TRACE-INTACT Abnormal NEGATIVE [facility] Comment on above: Performed By: #### C VDTBH #### [facility] [address] [place] [address] Dr. Kayley Hatfield Ketones Ql (U) Negative Normal NEGATIVE [facility] Comment on above: Performed By: #### C VDTBH #### [facility] [address] [place] [address] Dr. Kayley Hatfield LEUKOCYTES Negative Normal NEGATIVE [facility] Comment on above: Performed By: #### C VDTBH #### [facility] [address] [place] [address] Dr. Kayley Hatfield Nitrite Ql (U) Negative Normal NEGATIVE [facility] Comment on above: Performed By: #### C VDTBH #### [facility] [address] [place] [address] Dr. Kayley Hatfield pH (U) 8.0 [pH] Normal 5-9 [facility] Comment on above: Performed By: #### C VDTBH #### [facility] [address] [place] [address] Dr. Kayley Hatfield SPEC GRAVITY 1.010 Normal 1.005-<=1.025 [facility] Comment on above: Performed By: #### C VDTBH #### [facility] [address] [place] [address] Dr. Kayley Hatfield UA PROTEIN Negative Normal NEGATIVE/ TRACE [facility] Comment on above: Performed By: #### C VDTBH #### [facility] [address] [place] [address] Dr. Kayley Hatfield UR MICRO IND INDICATED Normal [facility] Comment on above: Performed By: #### C VDTBH #### [facility] [address] [place] [address] Dr. Kayley Hatfield Urobilinogen Qn (U) 0.2 {Lu'U}/dL Normal 0.2 - 1. 0 [facility] Comment on above: Performed By: #### C VDTBH #### [facility] [address] [place] [address] Dr. Kayley Hatfield LACTATE/LACTIC ACIDon 2021 Lactate [Moles/Vol] 1.1 mmol/L Normal 0.4-1.9 [facility] Comment on above: Performed By: #### P RTELEC #### [facility] [address] [place] [address] Dr. Kayley Hatfield PH VENOUS BLOODon 04-25-2022 PCO2 VENOUS 54.5 mmHg Critically high 40.0-52.0 [facility] Comment on above: Performed By: #### L DH #### [facility] [address] [place] [address] Dr. Kayley Hatfield pH VENOUS 7.385 Normal 7.330-7.430 [facility] Comment on above: Performed By: #### L DH #### [facility] [address] [place] [address] Dr. Kayley Hatfield POINT OF CARE GLUCOSEon 04-08 Glucose [Mass/Vol] 91 mg/dL Normal 74-106 [facility] Comment on above: Performed By: #### O BSCRN #### [facility] [address] [place] [address] [address] Kayley Hatfield Glucose [Mass/Vol] 116 mg/dL Critically high 74-106 [facility] Comment on above: Performed By: #### O BSCRN #### [facility] [address] [address] [address] Kayley Hatfield PROF 14(COMP METB)on 022 Albumin [Mass/Vol] 2.7 g/dL Critically low 3.4-5.0 [facility] Comment on above: Performed By: #### O BSCRN #### [facility] [address] [address] [address] Kayley Hatfield Albumin/Globulin [Mass ratio] 0.6 {ratio} Normal [facility] Comment on above: Performed By: #### O BSCRN #### [facility] [address] [address] [address] Kayley Hatfield ALP [Catalytic activity/Vol] 132 U/L Critically high 46-116 [facility] Comment on above: Performed By: #### O BSCRN #### [facility] [address] [address] [address] Kayley Hatfield ALT [Catalytic activity/Vol] 21 U/L Normal 14-59 [facility] Comment on above: Performed By: #### O BSCRN #### [facility] [address] [address] [address] Kayley Hatfield Anion gap [Moles/Vol] 8.1 mmol/L Normal [facility] Comment on above: Performed By: #### O BSCRN #### [facility] [address] [address] [address] Kayley Hatfield AST [Catalytic activity/Vol] 23 U/L Normal 15-37 [facility] Comment on above: Performed By: #### O BSCRN #### [facility] [address] [address] [address] Kayley Hatfield Bilirubin [Mass/Vol] 0.3 mg/dL Normal 0.2-1.0 [facility] Comment on above: Performed By: #### O BSCRN #### [facility] [address] [address] [address] Kayley Hatfield Calcium [Mass/Vol] 9.4 mg/dL Normal 8.5-10.1 [facility] Comment on above: Performed By: #### O BSCRN #### [facility] [address] [place] [address] Dr. Kayley Hatfield Chloride [Moles/Vol] 100 mmol/L Normal 98-107 [facility] Comment on above: Performed By: #### O BSCRN #### [facility] [address] [place] [address] Dr. Kayley Hatfield CO2 [Moles/Vol] 31.8 mmol/L Normal 21.0-32.0 [facility] Comment on above: Performed By: #### O BSCRN #### [facility] [address] [place] [address] Dr. Kayley Hatfield Creatinine [Mass/Vol] 0.79 mg/dL Normal 0.55-1.02 [facility] Comment on above: Performed By: #### O BSCRN #### [facility] [address] [place] [address] Dr. Kayley Hatfield EGFR-AF TURKS AND [place] ISLANDER >60 Normal >=60 [facility] Comment on above: Performed By: #### O BSCRN #### [facility] [address] [place] [address] Dr. Kayley Hatfield EGFR-NON AF TURKS AND [place] ISLANDER >60 Normal >=60 [facility] Comment on above: Performed By: #### O BSCRN #### [facility] [address] [place] [address] Dr. Kayley Hatfield Globulin (S) [Mass/Vol] 4.2 g/dL Normal [facility] Comment on above: Performed By: #### O BSCRN #### [facility] [address] [place] [address] [address] Kayley Hatfield Glucose [Mass/Vol] 134 mg/dL Critically high 74-106 [facility] Comment on above: Performed By: #### O BSCRN #### [facility] [address] [address] [address] Kayley Hatfield Potassium [Moles/Vol] 3.9 mmol/L Normal 3.5-5.1 [facility] Comment on above: Performed By: #### O BSCRN #### [facility] [address] [address] [address] Kayley Hatfield Protein [Mass/Vol] 6.9 g/dL Normal 6.4-8.2 [facility] Comment on above: Performed By: #### O BSCRN #### [facility] [address] [place] [address] Dr. Kayley Hatfield Sodium [Moles/Vol] 136 mmol/L Normal 136-145 [facility] Comment on above: Performed By: #### O BSCRN #### [facility] [address] [place] [address] [address] Kayley Hatfield Urea nitrogen [Mass/Vol] 10.0 mg/dL Normal 7.0-18.0 [facility] Comment on above: Performed By: #### O BSCRN #### [facility] [address] [place] [address] Dr. Kayley Hatfield Urea nitrogen/Creatinine [Mass ratio] 12.7 mg/mg Normal [facility] Comment on above: Performed By: #### O BSCRN #### [facility] [address] [place] [address] Dr. Kayley Hatfield PROTIMEon 04-25-2022 INR Coag (PPP) [Relative time] 1.08 {INR} Normal [facility] Comment on above: Performed By: #### P RTELEC #### [facility] [address] [place] [address] Dr. Kayley Hatfield INR GUIDELINES SEE BELOW Normal [facility] Comment on above: Result Comment: JOAQUIM RED INR: 2.0 - 3.0 CONDITIONS NOT LISTED BELOW 2.5 - 3.5 FOR PROSTHETIC HEART VALVE REPLACEMENT 2.5 - 3.5 RECURRENT THROMBOSIS Performed By: #### P RTELEC #### [facility] [address] [place] [address] Dr. Kayley Hatfield PT Coag (PPP) [Time] 11.6 s Normal 9.0-11.6 [facility] Comment on above: Performed By: #### P RTELEC #### [facility] [address] [place] [address] Dr. Kayley Hatfield PTTon 04-25-2022 aPTT Coag (Bld) [Time] 31.1 s Normal 22.3-36.2 [facility] Comment on above: Performed By: #### P RTELEC #### [facility] [address] [place] [address] Dr. Kayley Hatfield TROPONIN, HIGH SENSITIVITYon 04-25-2022 HSTROP 9.6 pg/mL Normal 4.0-51.3 [facility] Comment on above: Result Comment: CUT- OFF POINTS HAVE BEEN ESTABLISHED BASED ON THE FOURTH UNIVERSAL DEFINITIONS OF MYOCARDIAL INFARCTION. THE UPPER REFERENCE LIMIT (URL) OF TROPONIN, DEFINED THE 99TH PERCENTILE OF cTnI DISTRIBUTION IN A REFERENCE POPULATION, HAS BEEN CONFIRMED THE DECISION THRESHOLD FOR [place] DIAGNOSIS. Performed By: #### P RTELEC #### [facility] [address] [place] [address] Dr. Kayley Hatfield TSHon 04-25-2022 TSH 1.431 uIU/mL Normal 0.358-3.[address] [facility] Comment on above: Performed By: #### P RTELEC #### [facility] [address] [place] [address] Dr. Kayley Hatfield URINE MICROSCOPIC ONLYon BACTERIA NONE SEEN Normal NONE SEEN [facility] Comment on above: Performed By: #### C VDTBH #### [facility] [address] [place] [address] Dr. Kayley Hatfield Bacteria identified Cx Nom (U) NOT INDICATED Normal [facility] Comment on above: Performed By: #### C VDTBH #### [facility] [address] [place] [address] Dr. Kayley Hatfield CAST NONE SEEN Normal NONE SEEN [facility] Comment on above: Performed By: #### C VDTBH #### [facility] [address] [place] [address] Dr. Kayley Hatfield Crystals LM Nom (Urine sed) NONE SEEN Normal NONE SEEN [facility] Comment on above: Performed By: #### C VDTBH #### [facility] [address] [place] [address] Dr. Kayley Hatfield Epithelial cells LM Ql (Urine sed) FEW Abnormal NONE SEEN /RARE [facility] Comment on above: Performed By: #### C VDTBH #### [facility] [address] [place] [address] Dr. Kayley Hatfield MUCOUS NONE SEEN Normal NONE SEEN [facility] Comment on above: Performed By: #### C VDTBH #### [facility] [address] [place] [address] Dr. Kayley Hatfield RBC 2-5 Abnormal 0-2 [facility] Comment on above: Performed By: #### C VDTBH #### [facility] [address] [place] [address] Dr. Kayley Hatfield WBC NONE SEEN Normal NONE SEEN [facility] Comment on above: Performed By: #### C VDTBH #### [facility] [address] [place] [address] Dr. Kayley Hatfield IMMUNOFIXATION(KENNETH),PROTEIN ELEC(PE),[facility] 03-31-2022 Albumin [Mass/Vol] 3.6 g/dL Normal 2.9-4.4 [facility] Comment on above: Performed By: #### B [id number] #### [facility] [address] [place] [address] Dr. Kayley Hatfield Albumin/Globulin [Mass ratio] 1.6 {ratio} Normal 0.7-1.7 [facility] Comment on above: Performed By: #### B LDCX1 #### [facility] [address] [place] [address] Dr. Kayley Hatfield Rbnxk-[id number]-Zmwhsqny 0.3 g/dL Normal 0.0-0.4 [facility] Comment on above: Performed By: #### B LDCX1 #### [facility] [address] [place] [address] Dr. Kayley Hatfield Wbchl-5-Mrsvvmsw 0.8 g/dL Normal 0.4-1.0 [facility] Comment on above: Performed By: #### B [id number] #### [facility] [address] [place] [address] Dr. Kayley Hatfield Beta Globulin 1.0 g/dL Normal 0.7-1.[address] [facility] Comment on above: Performed By: #### B LDCX1 #### [facility] [address] [place] [address] Dr. Kayley Hatfield Free [place] [employer] Lt Chains,S 16.0 mg/L Normal 3.3-19.4 [facility] Comment on above: Performed By: #### B LDCX1 #### [facility] [address] [place] [address] Dr. Kayley Hatfield Free Lambda Lt Chains,S 10.1 mg/L Normal 5.7-26.3 [facility] Comment on above: Performed By: #### B LDCX1 #### [facility] [address] [place] [address] Dr. Kayley Hatfield Gamma Globulin 0.4 g/dL Normal 0.4-1.8 [facility] Comment on above: Performed By: #### B LDCX1 #### [facility] [address] [place] [address] Dr. Kayley Hatfield Globulin (S) [Mass/Vol] 2.4 g/dL Normal 2.2-3.9 [facility] Comment on above: Performed By: #### B LDCX1 #### [facility] [address] [place] [address] Dr. Kayley Hatfield Immunofixation Result, Serum Comment Normal [facility] Comment on above: Result Comment: No m onoclonality detected. Performed By: #### B LDCX1 #### [facility] [address] [place] [address] Dr. Kayley Hatfield Immunoglobulin A, Qn, Serum 128 mg/dL Normal 87-352 [facility] Comment on above: Performed By: #### B LDCX1 #### [facility] [address] [address] [address] Kayley Hatfield Immunoglobulin G, Qn, Serum 487 mg/dL Critically low 586-1602 [facility] Comment on above: Performed By: #### B LDCX1 #### [facility] [address] [address] [address] Kayley Hatfield Immunoglobulin M, Qn, Serum 38 mg/dL Normal 26-217 [facility] Comment on above: Performed By: #### B LDCX1 #### [facility] [address] [place] [address] Dr. Kayley Hatfield [place]/Lambda Ratio, S 1.58 Normal 0.26-1.65 [facility] Comment on above: Performed By: #### B LDCX1 #### [facility] [address] [address] [address] Kayley Hatfield M-Sandip Not Observed Normal Not Observed [facility] Comment on above: Performed By: #### B LDCX1 #### [facility] [address] [place] [address] Dr. Kayley Hatfield PDF . Normal [facility] Comment on above: Performed By: #### B LDCX1 #### [facility] [address] [place] [address] Dr. Kayley Hatfield Please note: Comment Normal [facility] Comment on above: Result Comment: Prot ein electrophoresis scan will follow via computer, mail, or joint cutter machine delivery. Performed By: #### B LDCX1 #### [facility] [address] [address] [address] Kayley Hatfield Protein [Mass/Vol] 6.0 g/dL Normal 6.0-8.5 [facility] Comment on above: Performed By: #### B LDCX1 #### [facility] [address] [place] [address] Dr. Kayley Hatfield CBC AUTO DIFFon 03-30-2022 BASO # 0.1 103/ul Normal 0.0-0.1 [facility] Comment on above: Performed By: #### P RBC #### [facility] [address] [place] [address] Dr. Kayley Hatfield Basophils/100 WBC (Bld) 0.4 % Normal 0.2-2.0 [facility] Comment on above: Performed By: #### P RBC #### [facility] [address] [place] [address] Dr. Kayley Hatfield EO # 0.2 103/ul Normal 0.0-0.7 [facility] Comment on above: Performed By: #### P RBC #### [facility] [address] [place] [address] Dr. Kayley Hatfield Eosinophils/100 WBC (Bld) 1.1 % Normal 0.9-7.0 [facility] Comment on above: Performed By: #### P RBC #### [facility] [address] [place] [address] Dr. Kayley Hatfield Erythrocyte distribution width (RBC) [Ratio] 0.0 % Critically low 11.0-15.0 [facility] Comment on above: Performed By: #### P RBC #### [facility] [address] [place] [address] Dr. Kayley Hatfield Hematocrit (Bld) [Volume fraction] 24.0 % Critically low 36.0-48.0 [facility] Comment on above: Performed By: #### P RBC #### [facility] [address] [place] [address] Dr. Kayley Hatfield Hemoglobin (Bld) [Mass/Vol] 7.2 g/dL Critically low 12.0-16.0 [facility] Comment on above: Performed By: #### P RBC #### [facility] [address] [place] [address] Dr. Kayley Hatfield IG # 0.10 10e3/ul Critically high 0.00-0.03 [facility] Comment on above: Performed By: #### P RBC #### [facility] [address] [place] [address] Dr. Kayley Hatfield IG % 0.6 % Critically high 0.0-0.5 [facility] Comment on above: Performed By: #### P RBC #### [facility] [address] [place] [address] Dr. Kayley Hatfield LYMPH # 1.5 103/ul Normal 1.2-3.8 [facility] Comment on above: Performed By: #### P RBC #### [facility] [address] [place] [address] Dr. Kayley Hatfield Lymphocytes/100 WBC (Bld) 9.0 % Critically low 20.5-60.0 [facility] Comment on above: Performed By: #### P RBC #### [facility] [address] [place] [address] Dr. Kayley Hatfield MANUAL DIFF REQ NO Normal [facility] Comment on above: Performed By: #### P RBC #### [facility] [address] [place] [address] Dr. Kayley Hatfield MCH (RBC) [Entitic mass] 27.3 pg Normal 26.7-34.0 [facility] Comment on above: Performed By: #### P RBC #### [facility] [address] [place] [address] Dr. Kayley Hatfield MCHC (RBC) [Mass/Vol] 30.0 g/dL Normal 29.9-35.2 [facility] Comment on above: Performed By: #### P RBC #### [facility] [address] [place] [address] Dr. Kayley Hatfield MCV (RBC) [Entitic vol] 90.9 fL Normal 81.0-99.0 [facility] Comment on above: Performed By: #### P RBC #### [facility] [address] [place] [address] Dr. Kayley Hatfield MONO # 2.3 103/ul Critically high 0.3-0.8 [facility] Comment on above: Performed By: #### P RBC #### [facility] [address] [place] [address] Dr. Kayley Hatfield Monocytes/100 WBC (Bld) 13.8 % Critically high 1.7-12.0 [facility] Comment on above: Performed By: #### P RBC #### [facility] [address] [place] [address] Dr. Kayley Hatfield NEUT # 12.7 103/ul Critically high 1.4-6.5 [facility] Comment on above: Performed By: #### P RBC #### [facility] [address] [place] [address] Dr. Kayley Hatfield Neutrophils/100 WBC (Bld) 75.1 % Critically high 43.0-75.0 [facility] Comment on above: Performed By: #### P RBC #### [facility] [address] [place] [address] Dr. Kayley Hatfield Platelet mean volume (Bld) [Entitic vol] 8.9 fL Critically low 9.5-13.5 [facility] Comment on above: Performed By: #### P RBC #### [facility] [address] [place] [address] Dr. Kayley Hatfield PLT 782 103/ul Critically high 150-450 [facility] Comment on above: Performed By: #### P RBC #### [facility] [address] [place] [address] Dr. Kayley Hatfield RBC 2.64 106/ul Critically low 4.20-5.40 [facility] Comment on above: Performed By: #### P RBC #### [facility] [address] [place] [address] Dr. Kayley Hatfield WBC 16.9 103/ul Critically high 4.0-11.0 [facility] Comment on above: Performed By: #### P RBC #### [facility] [address] [place] [address] Dr. Kayley Hatfield PRBC LEUKOREDUCEDon 03-30-20 ABO and Rh group Nom (Bld) Cross Match Result Compatible Unit Blood Type O Pos Unit Number [id number] Status Information Transfused Product ID Red Blood Cells Product Code [id number] Cross Match Result Compatible Unit Blood Type O Pos Unit Number [id number] Status Information Transfused Product ID Red Blood Cells Product Code [id number] Normal [facility] Comment on above: Performed By: #### P RBC #### [facility] [address] [address] [address] Kayley Hatfield PROF CHEM 8 (BAS METB)on Anion gap [Moles/Vol] 6.9 mmol/L Normal [facility] Comment on above: Performed By: #### P RBC #### [facility] [address] [place] [address] Dr. Kayley Hatfield Calcium [Mass/Vol] 8.7 mg/dL Normal 8.5-10.1 [facility] Comment on above: Performed By: #### P RBC #### [facility] [address] [place] [address] Dr. Kayley Hatfield Chloride [Moles/Vol] 101 mmol/L Normal 98-107 [facility] Comment on above: Performed By: #### P RBC #### [facility] [address] [place] [address] Dr. Kayley Hatfield CO2 [Moles/Vol] 33.3 mmol/L Critically high 21.0-32.0 [facility] Comment on above: Performed By: #### P RBC #### [facility] [address] [place] [address] Dr. Kayley Hatfield Creatinine [Mass/Vol] 0.83 mg/dL Normal 0.55-1.02 [facility] Comment on above: Performed By: #### P RBC #### [facility] [address] [place] [address] Dr. Kayley Hatfield EGFR-AF TURKS AND CAICOS ISLANDER >60 Normal >=60 [facility] Comment on above: Performed By: #### P RBC #### [facility] [address] [place] [address] Dr. Kayley Hatfield EGFR-NON AF TURKS AND CAICOS ISLANDER >60 Normal >=60 [facility] Comment on above: Performed By: #### P RBC #### [facility] [address] [place] [address] Dr. Kayley Hatfield Glucose [Mass/Vol] 94 mg/dL Normal 74-106 [facility] Comment on above: Performed By: #### P RBC #### [facility] [address] [address] [address] Kayley Hatfield Potassium [Moles/Vol] 4.2 mmol/L Normal 3.5-5.1 [facility] Comment on above: Performed By: #### P RBC #### [facility] [address] [address] [address] Kayley Hatfield Sodium [Moles/Vol] 137 mmol/L Normal 136-145 [facility] Comment on above: Performed By: #### P RBC #### [facility] [address] [address] [address] Kayley Hatfield Urea nitrogen [Mass/Vol] 15.0 mg/dL Normal 7.0-18.0 [facility] Comment on above: Performed By: #### P RBC #### [facility] [address] [place] [address] Dr. Kayley Hatfield Urea nitrogen/Creatinine [Mass ratio] 18.1 mg/mg Normal [facility] Comment on above: Performed By: #### P RBC #### [facility] [address] [place] [address] Dr. Kayley Hatfield PROTEIN ELECTROPHERESISon Albumin [Mass/Vol] 3.4 g/dL Normal 2.9-4.4 [facility] Comment on above: Performed By: #### P RTELEC #### [facility] [address] [place] [address] Dr. Kayley Hatfield Albumin/Globulin [Mass ratio] 1.3 {ratio} Normal 0.7-1.7 [facility] Comment on above: Performed By: #### P RTELEC #### [facility] [address] [address] [address] Kayley Hatfield Oezyq-8-Skzxdbyd 0.3 g/dL Normal 0.0-0.4 [facility] Comment on above: Performed By: #### P RTELEC #### [facility] [address] [place] [address] Dr. Kayley Hatfield Ilozc-5-Wvaqqlkq 0.8 g/dL Normal 0.4-1.0 [facility] Comment on above: Performed By: #### P RTELEC #### [facility] [address] [place] [address] Dr. Kayley Hatfield Beta Globulin 1.0 g/dL Normal 0.7-1.[address] [facility] Comment on above: Performed By: #### P RTELEC #### [facility] [address] [place] [address] Dr. Kayley Hatfield Gamma Globulin 0.5 g/dL Normal 0.4-1.8 [facility] Comment on above: Performed By: #### P RTELEC #### [facility] [address] [place] [address] Dr. Kayley Hatfield Globulin (S) [Mass/Vol] 2.6 g/dL Normal 2.2-3.9 [facility] Comment on above: Performed By: #### P RTELEC #### [facility] [address] [place] [address] Dr. Kayley Hatfield M-Sandip Not Observed Normal Not Observed [facility] Comment on above: Performed By: #### P RTELEC #### [facility] [address] [place] [address] Dr. Kayley Hatfield PDF . Normal [facility] Comment on above: Performed By: #### P RTELEC #### [facility] [address] [place] [address] Dr. Kayley Hatfield Please note: Comment Normal [facility] Comment on above: Result Comment: Prot ein electrophoresis scan will follow via computer, mail, or joint cutter machine delivery. Performed By: #### P RTELEC #### [facility] [address] [place] [address] Dr. Kayley Hatfield Protein [Mass/Vol] 6.0 g/dL Normal 6.0-8.5 [facility] Comment on above: Performed By: #### P RTELEC #### [facility] [address] [place] [address] Dr. Kayley Hatfield XR CHEST 1 Von 03-30-2022 XR CHEST 1 V EXAMINATION: XR CHES T 1 V, , 03/29/2022 11:20 PM EDT INDICATION: Right pneumothorax COMPARISON: 03/29/2022 TECHNIQUE: Chest x-ray: One view. FINDINGS: LINES/TUBES/DEVICES: Stable right chest tube with its tip over the right hilum. EKG leads overlie the chest. LUNGS AND PLEURA: Large right pneumothorax with near complete collapse of the right lung, unchanged. Left lung remains well-expanded and clear. Possible small right pleural effusion, stable by comparison. VASCULATURE: No increased pulmonary vasculature. CARDIAC: No cardiomegaly or cardiac silhouette abnormality. MEDIASTINUM: Unremarkable mediastinal silhouette. Atherosclerotic calcifications of the aorta. BONES: Appear unchanged. OTHER: None. IMPRESSION: 1. Stable appearing large right pneumothorax, with near complete collapse of the right lung. 2. Stable right chest tube. Electronically authenticated by: TYSHAWN MOORE Date: 2022-03-30 06:17 Normal [facility] CBC W MANUAL DIFFon 03-29-20 22 ANISOCYTOSIS 2+ Normal [facility] Comment on above: Performed By: #### C VDTBH #### [facility] [address] [place] [address] Dr. Kayley Hatfield ATYPICAL LYMPH # Normal [facility] Comment on above: Performed By: #### C VDTBH #### [facility] [address] [place] [address] Dr. Kayley Hatfield ATYPICAL LYMPH % Normal [facility] Comment on above: Performed By: #### C VDTBH #### [facility] [address] [place] [address] Dr. Kayley Hatfield BAND # 0.0 103/ul Normal 0.0-0.3 [facility] Comment on above: Performed By: #### C VDTBH #### [facility] [address] [place] [address] Dr. Kayley Hatfield BAND % 0 % Normal 0-5 [facility] Comment on above: Performed By: #### C VDTBH #### [facility] [address] [place] [address] Dr. Kayley Hatfield BASOM # 0.59 103/ul Critically high 0.00-0.10 [facility] Comment on above: Performed By: #### C VDTBH #### [facility] [address] [address] [address] Kayley Hatfield BASOM % 3.0 % Critically high 0.2-2.0 [facility] Comment on above: Performed By: #### C VDTBH #### [facility] [address] [place] [address] Dr. Kayley Hatfield BLAST # Normal [facility] Comment on above: Performed By: #### C VDTBH #### [facility] [address] [place] [address] Dr. Kayley Hatfield BLAST % Normal [facility] Comment on above: Performed By: #### C VDTBH #### [facility] [address] [place] [address] Dr. Kayley Hatfield CORRECTED WBC Normal 4.0-11.0 [facility] Comment on above: Performed By: #### C VDTBH #### [facility] [address] [place] [address] Dr. Kayley Hatfield EOS # 0.40 103/ul Normal 0.00-0.70 [facility] Comment on above: Performed By: #### C VDTBH #### [facility] [address] [place] [address] Dr. Kayley Hatfield EOS% 2.0 % Normal 0.9-7.0 [facility] Comment on above: Performed By: #### C VDTBH #### [facility] [address] [place] [address] Dr. Kayley Hatfield HCT 31.1 % Critically low 36.0-48.0 [facility] Comment on above: Performed By: #### C VDTBH #### [facility] [address] [place] [address] Dr. Kayley Hatfield HGB 9.7 g/dl Critically low 12.0-16.0 [facility] Comment on above: Performed By: #### C VDTBH #### [facility] [address] [place] [address] Dr. Kayley Hatfield HYPOCHROMASIA 1+ Normal [facility] Comment on above: Performed By: #### C VDTBH #### [facility] [address] [place] [address] Dr. Kayley Hatfield LYMPHM # 4.75 103/ul Critically high 1.20-3.80 [facility] Comment on above: Performed By: #### C VDTBH #### [facility] [address] [place] [address] Dr. Kayley Hatfield LYMPHM% 24.0 % Normal 20.5-60.0 [facility] Comment on above: Performed By: #### C VDTBH #### [facility] [address] [place] [address] Dr. Kayley Hatfield MCH 27.0 pg Normal 26.7-34.0 [facility] Comment on above: Performed By: #### C VDTBH #### [facility] [address] [place] [address] Dr. Kayley Hatfield MCHC 31.2 g/dl Normal 29.9-35.2 [facility] Comment on above: Performed By: #### C VDTBH #### [facility] [address] [place] [address] Dr. Kayley Hatfield MCV 86.6 fL Normal 81.0-99.0 [facility] Comment on above: Performed By: #### C VDTBH #### [facility] [address] [place] [address] Dr. Kayley Hatfield METAMYELOCYTE # Normal [facility] Comment on above: Performed By: #### C VDTBH #### [facility] [address] [place] [address] Dr. Kayley Hatfield METAMYELOCYTE % Normal [facility] Comment on above: Performed By: #### C VDTBH #### [facility] [address] [place] [address] Dr. Kayley Hatfield MONOM# 0.59 103/ul Normal 0.30-0.80 [facility] Comment on above: Performed By: #### C VDTBH #### [facility] [address] [place] [address] Dr. Kayley Hatfield MONOM% 3.0 % Normal 1.7-12.0 [facility] Comment on above: Performed By: #### C VDTBH #### [facility] [address] [place] [address] Dr. Kayley Hatfield MPV 8.4 fL Critically low 9.5-13.5 [facility] Comment on above: Performed By: #### C VDTBH #### [facility] [address] [place] [address] Dr. Kayley Hatfield MYELOCYTE # Normal [facility] Comment on above: Performed By: #### C VDTBH #### [facility] [address] [place] [address] Dr. Kayley Hatfield MYELOCYTE % Normal [facility] Comment on above: Performed By: #### C VDTBH #### [facility] [address] [place] [address] Dr. Kayley Hatfield NRBC Normal [facility] Comment on above: Performed By: #### C VDTBH #### [facility] [address] [place] [address] Dr. Kayley Hatfield OVALOCYTES SLIGHT Normal [facility] Comment on above: Performed By: #### C VDTBH #### [facility] [address] [place] [address] Dr. Kayley Hatfield PLT 950 103/ul Critically high 150-450 [facility] Comment on above: Performed By: #### C VDTBH #### [facility] [address] [place] [address] Dr. Kayley Hatfield RBC 3.59 106/ul Critically low 4.20-5.40 [facility] Comment on above: Performed By: #### C VDTBH #### [facility] [address] [place] [address] Dr. Kayley Hatfield RDW 26.6 % Critically high 11.0-15.0 [facility] Comment on above: Performed By: #### C VDTBH #### [facility] [address] [place] [address] Dr. Kayley Hatfield SEG # 13.46 103/ul Critically high 1.40-6.50 [facility] Comment on above: Performed By: #### C VDTBH #### [facility] [address] [place] [address] Dr. Kayley Hatfield SEG % 68.0 % Normal 43.0-75.0 [facility] Comment on above: Performed By: #### C VDTBH #### [facility] [address] [place] [address] Dr. Kayley Hatfield WBC 19.8 103/ul Critically high 4.0-11.0 [facility] Comment on above: Performed By: #### C VDTBH #### [facility] [address] [place] [address] Dr. Kayley Hatfield PROF CHEM 8 (BAS METB)on Anion gap [Moles/Vol] 8.6 mmol/L Normal [facility] Comment on above: Performed By: #### L #### [facility] [address] [place] [address] Dr. Kayley Hatfield Calcium [Mass/Vol] 8.9 mg/dL Normal 8.5-10.1 [facility] Comment on above: Performed By: #### L #### [facility] [address] [place] [address] Dr. Kayley Hatfield Chloride [Moles/Vol] 102 mmol/L Normal 98-107 [facility] Comment on above: Performed By: #### L DH #### [facility] [address] [place] [address] Dr. Kayley Hatfield CO2 [Moles/Vol] 34.3 mmol/L Critically high 21.0-32.0 [facility] Comment on above: Performed By: #### L DH #### [facility] [address] [place] [address] Dr. Kayley Hatfield Creatinine [Mass/Vol] 0.86 mg/dL Normal 0.55-1.02 [facility] Comment on above: Performed By: #### L DH #### [facility] [address] [place] [address] Dr. Kayley Hatfield EGFR-AF TURKS AND CAICOS ISLANDER >60 Normal >=60 [facility] Comment on above: Performed By: #### L DH #### [facility] [address] [address] [address] Kayley Hatfield EGFR-NON AF TURKS AND CAICOS ISLANDER >60 Normal >=60 [facility] Comment on above: Performed By: #### L DH #### [facility] [address] [address] [address] Kayley Hatfield Glucose [Mass/Vol] 102 mg/dL Normal 74-106 [facility] Comment on above: Performed By: #### L DH #### [facility] [address] [address] [address] Kayley Hatfield Potassium [Moles/Vol] 3.9 mmol/L Normal 3.5-5.1 [facility] Comment on above: Performed By: #### L DH #### [facility] [address] [address] [address] Kayley Hatfield Sodium [Moles/Vol] 141 mmol/L Normal 136-145 [facility] Comment on above: Performed By: #### L DH #### [facility] [address] [address] [address] Kayley Hatfield Urea nitrogen [Mass/Vol] 20.0 mg/dL Critically high 7.0-18.0 [facility] Comment on above: Performed By: #### L DH #### [facility] [address] [address] [address] Kayley Hatfield Urea nitrogen/Creatinine [Mass ratio] 23.3 mg/mg Normal [facility] Comment on above: Performed By: #### L DH #### [facility] [address] [address] [address] Kayley Hatfield XR CHEST 1 Von 03-29-2022 XR CHEST 1 V EXAMINATION: XR CHES T 1 V HISTORY: SHORTNESS OF BREATH ; follow-up pneumothorax COMPARISON: XR chest 03/29/2022 10:47 AM FINDINGS: LUNGS: Large right pneumothorax with collapse of the right lung, unchanged. Right chest tube with tip overlying the right hilum. Left lung is well-expanded and clear. VASCULATURE: No increased pulmonary vasculature. PLEURA: Possible small right pleural effusion. CARDIAC: No cardiomegaly or cardiac silhouette abnormality. MEDIASTINUM: No visible mass or adenopathy. BONES: No fracture or visible bone lesion. OTHER: Negative. IMPRESSION: 1. Stable, large right pneumothorax with near complete collapse of right lung. No appreciable change. 2. Stable right chest tube. Electronically authenticated by: MIGUE REYNOSO Date: 2022-03-29 13:26 Normal [facility] XR CHEST 1 V EXAMINATION: XR CHES T 1 V HISTORY: SHORTNESS OF BREATH COMPARISON: XR chest 03/29/2022 6:45 AM FINDINGS: LUNGS: Large right pneumothorax with near complete collapse of right lung. Right chest tube is unchanged with tip at level of right hilum. Left lung is well-expanded and clear. VASCULATURE: No increased pulmonary vasculature. PLEURA: Blunting of right lateral costophrenic angle may be due to flattening of the diaphragm or pleural fluid. CARDIAC: No cardiomegaly or cardiac silhouette abnormality. MEDIASTINUM: No visible mass or adenopathy. BONES: No fracture or visible bone lesion. OTHER: Negative. IMPRESSION: 1. Large right pneumothorax with near complete collapse of right lung; unchanged. 2. Stable positioning of right chest tube with tip at level of hilum. Electronically authenticated by: MIGUE REYNOSO Date: 2022-03-29 11:37 Normal [facility] XR CHEST 1 V EXAMINATION: XR CHES T 1 V HISTORY: SHORTNESS OF BREATH ; follow-up pneumothorax COMPARISON: XR chest 03/28/2022 FINDINGS: LUNGS: Near-complete collapse of the right lung with large pneumothorax increased opacity in right lung base. Chest tube within right hemithorax with tip adjacent caudal margin of right hilum. Left lung is expanded and clear. VASCULATURE: No increased pulmonary vasculature. PLEURA: Blunting of right lateral costophrenic angle, likely small pleural effusion. CARDIAC: No cardiomegaly or cardiac silhouette abnormality. MEDIASTINUM: No visible mass or adenopathy. BONES: No fracture or visible bone lesion. OTHER: Small amount of free air within lateral right chest wall at site of chest tube insertion. IMPRESSION: 1. Large right pneumothorax, increased in size, with near complete collapse of right lung despite right side chest tube. Electronically authenticated by: MIGUE REYNOSO Date: 2022-03-29 07:32 Normal [facility] XR CHEST 1 V EXAM: XR CHEST 1 V HISTORY: ACUTE RESPIRATORY DISTRESS COMPARISON: Earlier in the day. TECHNIQUE: Portable chest FINDINGS: IMPRESSION: Right-sided chest tube has been placed within the mid to lower hemithorax. Again demonstrated is the large right pneumothorax. Small to moderate right pleural effusion. The left hemithorax is unremarkable. The heart is not enlarged Electronically authenticated by: ASAEL ANAND Date: 2022-03-28 22:40 Normal [facility] CBC W MANUAL DIFFon 03-28-20 22 ANISOCYTOSIS 3+ Normal [facility] Comment on above: Performed By: #### C BCMAN #### [facility] [address] [place] [address] Dr. Kayley Hatfield ATYPICAL LYMPH # Normal [facility] Comment on above: Performed By: #### C BCMAN #### [facility] [address] [place] [address] Dr. Kayley Hatfield ATYPICAL LYMPH % Normal [facility] Comment on above: Performed By: #### C BCMAN #### [facility] [address] [place] [address] Dr. Kayley Hatfield BAND # 0.3 103/ul Normal 0.0-0.3 [facility] Comment on above: Performed By: #### C BCMAN #### [facility] [address] [place] [address] Dr. Kayley Hatfield BAND % 2 % Normal 0-5 [facility] Comment on above: Performed By: #### C BCMAN #### [facility] [address] [place] [address] Dr. Kayley Hatfield BASOM # 0.00 103/ul Normal 0.00-0.10 [facility] Comment on above: Performed By: #### C BCMAN #### [facility] [address] [place] [address] Dr. Kayley Hatfield BASOM % 0.0 % Critically low 0.2-2.0 [facility] Comment on above: Performed By: #### C BCMAN #### [facility] [address] [address] [address] Kayley Hatfield BLAST # Normal [facility] Comment on above: Performed By: #### C ALONZO #### [facility] [address] [address] [address] Kayley Hatfield BLAST % Normal [facility] Comment on above: Performed By: #### C ALONZO #### [facility] [address] [address] [address] Kayley Hatfield CORRECTED WBC Normal 4.0-11.0 [facility] Comment on above: Performed By: #### C ALONZO #### [facility] [address] [place] [address] Dr. Kayley Hatfield EOS # 0.00 103/ul Normal 0.00-0.70 [facility] Comment on above: Performed By: #### C ALONZO #### [facility] [address] [place] [address] Dr. Kayley Hatfield EOS% 0.0 % Critically low 0.9-7.0 [facility] Comment on above: Performed By: #### C ALONZO #### [facility] [address] [place] [address] Dr. Kayley Hatfield HCT 23.6 % Critically low 36.0-48.0 [facility] Comment on above: Performed By: #### C ALONZO #### [facility] [address] [place] [address] Dr. Kayley Hatfield HGB 6.8 g/dl Critically low 12.0-16.0 [facility] Comment on above: Performed By: #### C BCKATHY #### [facility] [address] [place] [address] Dr. Kayley Hatfield HYPOCHROMASIA 3+ Normal [facility] Comment on above: Performed By: #### C BCKATHY #### [facility] [address] [place] [address] Dr. Kayley Hatfield LYMPHM # 1.17 103/ul Critically low 1.20-3.80 [facility] Comment on above: Performed By: #### C ALONZO #### [facility] [address] [address] [address] Kayley Hatfield LYMPHM% 7.0 % Critically low 20.5-60.0 [facility] Comment on above: Performed By: #### C ALONZO #### [facility] [address] [place] [address] Dr. Kayley Hatfield MCH 24.6 pg Critically low 26.7-34.0 [facility] Comment on above: Performed By: #### C ALONZO #### [facility] [address] [place] [address] Dr. Kayley Hatfield MCHC 28.8 g/dl Critically low 29.9-35.2 [facility] Comment on above: Performed By: #### C ALONZO #### [facility] [address] [place] [address] Dr. Kayley Hatfield MCV 85.5 fL Normal 81.0-99.0 [facility] Comment on above: Performed By: #### C ALONZO #### [facility] [address] [place] [address] Dr. Kayley Hatfield METAMYELOCYTE # Normal [facility] Comment on above: Performed By: #### C ALONZO #### [facility] [address] [place] [address] Dr. Kayley Hatfield METAMYELOCYTE % Normal [facility] Comment on above: Performed By: #### C ALONZO #### [facility] [address] [place] [address] Dr. Kayley Hatfield MONOM# 0.50 103/ul Normal 0.30-0.80 [facility] Comment on above: Performed By: #### C ALONZO #### [facility] [address] [place] [address] Dr. Kayley Hatfield MONOM% 3.0 % Normal 1.7-12.0 [facility] Comment on above: Performed By: #### C ALONZO #### [facility] [address] [place] [address] Dr. Kayley Hatfield MPV 8.6 fL Critically low 9.5-13.5 [facility] Comment on above: Performed By: #### C BCKATHY #### [facility] [address] [address] [address] Kayley Hatfield MYELOCYTE # Normal [facility] Comment on above: Performed By: #### C BCMAN #### [facility] [address] [address] [address] Kayley Hatfield MYELOCYTE % Normal [facility] Comment on above: Performed By: #### C BCMAN #### [facility] [address] [address] [address] Kayley Hatfield NRBC Normal [facility] Comment on above: Performed By: #### C ALONZO #### [facility] [address] [address] [address] Kayley Hatfield OVALOCYTES SLIGHT Normal [facility] Comment on above: Performed By: #### C ALONZO #### [facility] [address] [address] [address] Kayley Hatfield PLT 1384 103/ul Critically high 150-450 [facility] Comment on above: Performed By: #### C ALONZO #### [facility] [address] [address] [address] Kayley Hatfield RBC 2.76 106/ul Critically low 4.20-5.40 [facility] Comment on above: Performed By: #### C ALONZO #### [facility] [address] [address] [address] Kayley Hatfield RDW 0.0 % Critically low 11.0-15.0 [facility] Comment on above: Performed By: #### C BCMAN #### [facility] [address] [address] [address] Kayley Hatfield SEG # 14.70 103/ul Critically high 1.40-6.50 [facility] Comment on above: Performed By: #### C BCMAN #### [facility] [address] [address] [address] Kayley Hatfield SEG % 88.0 % Critically high 43.0-75.0 [facility] Comment on above: Performed By: #### C BCMAN #### [facility] [address] [address] [address] Kayley Hatfield WBC 16.7 103/ul Critically high 4.0-11.0 [facility] Comment on above: Performed By: #### C BCMAN #### [facility] [address] [address] [address] Kayley Hatfield CRPon 03-28-2022 CRP [Mass/Vol] mg/L Normal <=1.0 [facility] Comment on above: Performed By: #### H GBHCT #### [facility] [address] [address] [address] Kayley Hatfield Covid-19 PCR (CVDTB)on 03-10 SARS-CoV-2 (COVID-19) RNA ELBA+probe Ql (Unsp spec) Not detected Normal NOT DETECTED [facility] Comment on above: Result Comment: When diagnostic testing is negative, the possibility of a false negative should be considered in the context of a patient's recent exposures and the presence of clinical signs and symptoms consistent with SARS-CoV-2. This test is not yet approved or cleared by the [place] FDA. When there are no FDA-approved or cleared tests available, and other criteria are met, FDA can make tests available under an emergency access mechanism called an Emergency Use Authorization (EUA). The EUA for this test is supported by the [place] of Health and Human Service's declaration that circumstances exist to justify the emergency use of in vitro diagnostics for the detection and/or diagnosis of the virus that causes COVID-19. This EUA will remain in effect for the duration of the COVID-19 declaration justifying emergency of IVDs, unless it is terminated or revoked by the FDA (after which the test may no longer be used). Performed By: #### P RBC #### [facility] [address] [place] [address] Dr. Kayley Hatfield ER URINE PROFILEon 2 Bilirubin Ql (U) Negative Normal NEGATIVE [facility] Comment on above: Performed By: #### P RBC #### [facility] [address] [place] [address] Dr. Kayley Hatfield Clarity (U) CLEAR Normal CLEAR [facility] Comment on above: Performed By: #### P RBC #### [facility] [address] [address] [address] Kayley Hatfield Color (U) LT. YELLOW Normal YELLOW [facility] Comment on above: Performed By: #### P RBC #### [facility] [address] [place] [address] Dr. Kayley Hatfield ERUAHD A micrscopic examination will be performed if indicated. Normal [facility] Comment on above: Performed By: #### P RBC #### [facility] [address] [address] [address] Kayley Hatfield Glucose Ql (U) Negative Normal NEGATIVE [facility] Comment on above: Performed By: #### P RBC #### [facility] [address] [place] [address] Dr. Kayley Hatfield Hemoglobin Ql (U) Negative Normal NEGATIVE [facility] Comment on above: Performed By: #### P RBC #### [facility] [address] [place] [address] Dr. Kayley Hatfield Ketones Ql (U) Negative Normal NEGATIVE [facility] Comment on above: Performed By: #### P RBC #### [facility] [address] [place] [address] Dr. Kayley Hatfield LEUKOCYTES Negative Normal NEGATIVE [facility] Comment on above: Performed By: #### P RBC #### [facility] [address] [place] [address] Dr. Kayley Hatfield Nitrite Ql (U) Negative Normal NEGATIVE [facility] Comment on above: Performed By: #### P RBC #### [facility] [address] [place] [address] Dr. Kayley Hatfield pH (U) 6.0 [pH] Normal 5-9 [facility] Comment on above: Performed By: #### P RBC #### [facility] [address] [place] [address] Dr. Kayley Hatfield SPEC GRAVITY <=1.005 Abnormal 1.005-<=1.025 [facility] Comment on above: Performed By: #### P RBC #### [facility] [address] [address] [address] Kayley Hatfield UA PROTEIN Negative Normal NEGATIVE/ TRACE [facility] Comment on above: Performed By: #### P RBC #### [facility] [address] [address] [address] Kayley Hatfield UR MICRO IND NOT INDICATED Normal [facility] Comment on above: Performed By: #### P RBC #### [facility] [address] [address] [address] Kayley Hatfield Urobilinogen Qn (U) 0.2 {Lu'U}/dL Normal 0.2 - 1. 0 [facility] Comment on above: Performed By: #### P RBC #### [facility] [address] [place] [address] Dr. Kayley Hatfield FERRITINon 03-28-2022 Ferritin [Mass/Vol] 61.0 ng/mL Normal 8.0-252.0 [facility] Comment on above: Performed By: #### P RBC #### [facility] [address] [place] [address] Dr. Kayley Hatfield GLYCOHEMOGLOBIN A1Con 2021 ADA RECOMMENDATION SEE BELOW Normal [facility] Comment on above: Result Comment: ADA RECOMMENDED LIMIT 4.0 - 6.0 ADA THERAPEUTIC TARGET < 7.0 ACTION SUGGESTED > 7.0 Performed By: #### P RBC #### [facility] [address] [place] [address] Dr. Kayley Hatfield Glucose [Mass/Vol] 114 mg/dL Normal [facility] Comment on above: Performed By: #### P RBC #### [facility] [address] [place] [address] Dr. Kayley Hatfield HbA1c (Bld) [Mass fraction] 5.6 % Normal 4.5-6.2 [facility] Comment on above: Performed By: #### P RBC #### [facility] [address] [place] [address] Dr. Kayley Hatfield IRONon 03-28-2022 Iron [Mass/Vol] 37.0 ug/dL Critically low 50.0-170.0 [facility] Comment on above: Performed By: #### P RBC #### [facility] [address] [address] [address] Kayley Hatfield LDHon 03-28-2022 LDH 174 U/L Normal 81-234 [facility] Comment on above: Performed By: #### L DH #### [facility] [address] [address] [address] Kayley Hatfield LIPID PROFILEon 03-28-2022 CHOL-HDL RATIO NORM SEE BELOW Normal [facility] Comment on above: Result Comment: 3.3 - 4.4 LOW RISK 4.4 - 7.1 AVERAGE RISK 7.1 - 11.0 MODERATE RISK >11.0 HIGH RISK Performed By: #### P RBC #### [facility] [address] [place] [address] Dr. Kayley Hatfield Cholesterol [Mass/Vol] 193 mg/dL Normal <=200 [facility] Comment on above: Performed By: #### P RBC #### [facility] [address] [place] [address] Dr. Kayley Hatfield Cholesterol in HDL [Mass/Vol] 95 mg/dL Critically high 40-60 [facility] Comment on above: Performed By: #### P RBC #### [facility] [address] [place] [address] Dr. Kayley Hatfield Cholesterol in LDL [Mass/Vol] 74.8 mg/dL Normal [facility] Comment on above: Performed By: #### P RBC #### [facility] [address] [address] [address] Kayley Hatfield Cholesterol.total/Cho lesterol in HDL [Mass ratio] 2.0 {ratio} Normal [facility] Comment on above: Performed By: #### P RBC #### [facility] [address] [place] [address] Dr. Kayley Hatfield HDL NORMAL > or = 60 mg/dl - LO W CARDIOVASCULAR RISK <40 mg/dl - HIGH CARDIOVASCULAR RISK Normal [facility] Comment on above: Performed By: #### P RBC #### [facility] [address] [place] [address] Dr. Kayley Hatfield LDL CALC NORMAL SEE BELOW Normal [facility] Comment on above: Result Comment: <100 mg/dl OPTIMAL 100 - 129 mg/dl NEAR OR ABOVE OPTIMAL 130 - 159 mg/dl BORDERLINE HIGH 160 - 189 mg/dl HIGH >190 mg/dl VERY HIGH Performed By: #### P RBC #### [facility] [address] [address] [address] Kayley Hatfield Triglyceride [Mass/Vol] 116 mg/dL Normal <=150 [facility] Comment on above: Performed By: #### P RBC #### [facility] [address] [address] [address] Kayley Hatfield VLDL CALC 23.2 mg/dL Normal [facility] Comment on above: Performed By: #### P RBC #### [facility] [address] [address] [address] Kayley Hatfield LIVER PROFILEon 03-28-2022 Albumin [Mass/Vol] 3.2 g/dL Critically low 3.4-5.0 [facility] Comment on above: Performed By: #### P RBC #### [facility] [address] [address] [address] Kayley Hatfield Albumin/Globulin [Mass ratio] 1.0 {ratio} Normal [facility] Comment on above: Performed By: #### P RBC #### [facility] [address] [address] [address] Kayley Hatfield ALP [Catalytic activity/Vol] 56 U/L Normal 46-116 [facility] Comment on above: Performed By: #### P RBC #### [facility] [address] [address] [address] Kayley Hatfield ALT [Catalytic activity/Vol] 32 U/L Normal 14-59 [facility] Comment on above: Performed By: #### P RBC #### [facility] [address] [address] [address] Kayley Hatfield AST [Catalytic activity/Vol] 18 U/L Normal 15-37 [facility] Comment on above: Performed By: #### P RBC #### [facility] [address] [place] [address] Dr. Kayley Hatfield BILI, CONJUGATED 0.1 mg/dL Normal 0.0-0.2 [facility] Comment on above: Performed By: #### P RBC #### [facility] [address] [place] [address] Dr. Kayley Hatfield Bilirubin [Mass/Vol] 0.2 mg/dL Normal 0.2-1.0 [facility] Comment on above: Performed By: #### P RBC #### [facility] [address] [place] [address] Dr. Kayley Hatfield Globulin (S) [Mass/Vol] 3.1 g/dL Normal [facility] Comment on above: Performed By: #### P RBC #### [facility] [address] [place] [address] Dr. Kayley Hatfield Protein [Mass/Vol] 6.3 g/dL Critically low 6.4-8.2 [facility] Comment on above: Performed By: #### P RBC #### [facility] [address] [place] [address] Dr. Kayley Hatfield MAGNESIUMon 03-28-2022 Magnesium [Mass/Vol] 1.8 mg/dL Normal 1.8-2.4 [facility] Comment on above: Performed By: #### H GBHCT #### [facility] [address] [place] [address] Dr. Kayley Hatfield PHOSPHORUSon 03-28-2022 Phosphate [Mass/Vol] 4.4 mg/dL Normal 2.6-4.7 [facility] Comment on above: Performed By: #### O BSCRN #### [facility] [address] [place] [address] Dr. Kayley Hatfield PROF CHEM 8 (BAS METB)on Anion gap [Moles/Vol] 10.1 mmol/L Normal [facility] Comment on above: Performed By: #### P RBC #### [facility] [address] [place] [address] Dr. Kayley Hatfield Calcium [Mass/Vol] 9.1 mg/dL Normal 8.5-10.1 [facility] Comment on above: Performed By: #### P RBC #### [facility] [address] [address] [address] Kayley Hatfield Chloride [Moles/Vol] 101 mmol/L Normal 98-107 [facility] Comment on above: Performed By: #### P RBC #### [facility] [address] [address] [address] Kayley Hatfield CO2 [Moles/Vol] 32.6 mmol/L Critically high 21.0-32.0 [facility] Comment on above: Performed By: #### P RBC #### [facility] [address] [address] [address] Kayley Hatfield Creatinine [Mass/Vol] 0.90 mg/dL Normal 0.55-1.02 [facility] Comment on above: Performed By: #### P RBC #### [facility] [address] [address] [address] Kayley Hatfield EGFR-AF TURKS AND CAIC[place] ISLANDER >60 Normal >=60 [facility] Comment on above: Performed By: #### P RBC #### [facility] [address] [address] [address] Kayley Hatfield EGFR-NON AF TURKS AND CAICOS ISLANDER >60 Normal >=60 [facility] Comment on above: Performed By: #### P RBC #### [facility] [address] [address] [address] Kayley Hatfield Glucose [Mass/Vol] 161 mg/dL Critically high 74-106 [facility] Comment on above: Performed By: #### P RBC #### [facility] [address] [address] [address] Kayley Hatfield Potassium [Moles/Vol] 4.7 mmol/L Normal 3.5-5.1 [facility] Comment on above: Performed By: #### P RBC #### [facility] [address] [address] [address] Kayley Hatfield Sodium [Moles/Vol] 139 mmol/L Normal 136-145 [facility] Comment on above: Performed By: #### P RBC #### [facility] [address] [address] [address] Kayley Hatfield Urea nitrogen [Mass/Vol] 15.0 mg/dL Normal 7.0-18.0 [facility] Comment on above: Performed By: #### P RBC #### [facility] [address] [address] [address] Kayley Hatfield Urea nitrogen/Creatinine [Mass ratio] 16.7 mg/mg Normal [facility] Comment on above: Performed By: #### P RBC #### [facility] [address] [place] [address] Dr. Kayley Hatfield RETICULOCYTEon 03-28-2022 RETIC 4.65 % Critically high 0.60-3.10 [facility] Comment on above: Performed By: #### L DH #### [facility] [address] [place] [address] Dr. Kayley Hatfield SED RATE WESTERGRENon 2021 SED RATE 12 mm/hr Normal <=30 [facility] Comment on above: Performed By: #### P RTELEC #### [facility] [address] [place] [address] Dr. Kayley Hatfield TSHon 03-28-2022 TSH 0.922 uIU/mL Normal 0.358-3.[address] [facility] Comment on above: Performed By: #### P RBC #### [facility] [address] [place] [address] Dr. Kayley Hatfield TYPE AND SCREENon 03-28-2022 TYPE AND SCREEN Negative Normal [facility] Comment on above: Performed By: #### C VDTBH #### [facility] [address] [place] [address] Dr. Kayley Hatfield VIT B12 AND FOLATEon 022 Cobalamin (Vitamin B12) [Mass/Vol] 490.0 pg/mL Normal 193.0-986.0 [facility] Comment on above: Performed By: #### L DH #### [facility] [address] [place] [address] Dr. Kayley Hatfield FOLATE 14.00 ng/mL Normal 8.60-58.90 [facility] Comment on above: Performed By: #### L DH #### [facility] [address] [address] [address] Kayley Hatfield VITAMIN D 25 OHon 03-28-2022 VIT D 25-OH 41.5 ng/mL Normal [facility] Comment on above: Performed By: #### O BSCRN #### [facility] [address] [address] [address] Kayley Hatfield VIT D RANGES SEE BELOW Normal [facility] Comment on above: Result Comment: <20 ng/mL Vit D deficient 20 - <30 ng/mL Vit D insufficient 30 - 100 ng/mL Vit D sufficient >100 ng/mL Potential Toxicity Performed By: #### O BSCRN #### [facility] [address] [address] [address] Kayley Hatfield XR CHEST 1 Von 03-28-2022 XR CHEST 1 V EXAM: XR CHEST 1 V HISTORY: ACUTE RESPIRATORY DISTRESS COMPARISON: Chest radiograph 03/08/2022 and 03/07/2022 FINDINGS: There is a large right pneumothorax with apical and basilar components. The apical component measures 5.8 cm at the apex, increased from 2.7 cm on 03/08/2022 available comparison. There is trace leftward shift of the mediastinum and downward mass effect on the right hemidiaphragm. Redemonstrated postsurgical changes project at the left upper lung. No focal consolidative opacity. No significant pleural effusion. Visualized portions of the upper abdomen are unremarkable. No acute osseous abnormality. IMPRESSION: 1. Large right pneumothorax with apical and basilar components. Trace leftward shift of the mediastinum and downward mass effect on the right hemidiaphragm are noted. Critical findings of large right pneumothorax with mass effect on the mediastinum and hemidiaphragm were discussed with Dr. Lozano by the radiologist, Dr. Araiza at 9:35, on 03/28/2022. Electronically authenticated by: STEPHEN ARAIZA Date: 2022-03-28 21:37 Normal [facility] BASIC METABOLIC PANELon Calcium [Mass/Vol] 8.9 mg/dL Normal 8.6-10.3 [facility] Comment on above: Order Comment: No: D o not add to previous draw Performed By: #### 3 5200, 39105, 49973, 70687 #### [facility] [address] [place] [id number], [facility] Chloride [Moles/Vol] 97 mmol/L Low 98-107 [facility] Comment on above: Order Comment: No: D o not add to previous draw Performed By: #### 3 5200, 79596, 25493, 14622 #### [facility] [address] [place] [address], [facility] CO2 [Moles/Vol] 35 mmol/L High 21-31 [facility] Comment on above: Order Comment: No: D o not add to previous draw Performed By: #### 3 5200, 15949, 54758, 21343 #### [facility] [address] [place] [address], [facility] Creatinine [Mass/Vol] 0.65 mg/dL Normal 0.60-1.20 [facility] Comment on above: Order Comment: No: D o not add to previous draw Performed By: #### 3 5200, 57789, 63442, 45240 #### [facility] [address] [place] [address], [facility] GFR/1.73 sq M.predicted among non-blacks MDRD (S/P/Bld) [Vol rate/Area] mL/min/{1.73_m2} Normal >60 [facility] Comment on above: Order Comment: No: D o not add to previous draw Result Comment: [facility]'s estimated glomerular filtration rate (eGFR) will no longer include consideration of race in its calculation. The National Kid[employer] Foundation's eGFR Task Force developed new recommendations for the estimation of the glomerular filtration rate in the [place] They recommend immediate implementation of the new equation refit without the race variable in all laboratories because the calculation does not include race. In addition to not including race in the calculation and reporting, it included diversity in its development, and has acceptable performance characteristics and potential consequences that do not disproportionately affect any one group of individuals. Performed By: #### 3 5200, 61227, 54816, 10874 #### [facility] [address] [place] [address], [place] Glucose [Mass/Vol] 161 mg/dL High 70-100 [facility] Comment on above: Order Comment: No: D o not add to previous draw Performed By: #### 3 0, 25860, 27515, 82623 #### [facility] [address] [place] [address], [place] Potassium [Moles/Vol] 3.9 mmol/L Normal 3.5-5.1 [facility] Comment on above: Order Comment: No: D o not add to previous draw Performed By: #### 3 0, 20347, 65518, 75537 #### [facility] [address] [place] [address], [place] Sodium [Moles/Vol] 136 mmol/L Normal 136-145 [facility] Comment on above: Order Comment: No: D o not add to previous draw Performed By: #### 3 0, 42155, 33771, 03361 #### [facility] [address] [place] [address], [place] Urea nitrogen [Mass/Vol] 16 mg/dL Normal 7-25 [facility] Comment on above: Order Comment: No: D o not add to previous draw Performed By: #### 3 0, 86365, 25613, 73979 #### [facility] [address] [place] [address], [place] CBC COMPLETE BLOOD COUNTon 0 - Hematocrit (Bld) [Volume fraction] 28.2 % Low 36.0-45.0 [facility] Comment on above: Order Comment: No: D o not add to previous draw Performed By: #### 3 0 #### [facility] [address] [place] [address], [place] Hemoglobin (Bld) [Mass/Vol] 8.3 g/dL Low 12.0-15.0 [facility] Comment on above: Order Comment: No: D o not add to previous draw Performed By: #### 3 5200 #### [facility] [address] [place] [address], [facility] MCH (RBC) [Entitic mass] 22.9 pg Low 27.0-33.0 [facility] Comment on above: Order Comment: No: D o not add to previous draw Performed By: #### 3 5200 #### [facility] [address] [place] [id number], [facility] MCHC (RBC) [Mass/Vol] 29.4 g/dL Low 32.0-35.0 [facility] Comment on above: Order Comment: No: D o not add to previous draw Performed By: #### 3 5200 #### [facility] [address] [place] [address], [facility] MCV (RBC) [Entitic vol] 77.9 fL Low 82.0-98.0 [facility] Comment on above: Order Comment: No: D o not add to previous draw Performed By: #### 3 5200 #### [facility] [address] [facility] [place] [address], [facility] Nucleated RBC/100 WBC (Bld) [Ratio] 0 % Normal 0-0 [facility] Comment on above: Order Comment: No: D o not add to previous draw Performed By: #### 3 5200 #### [facility] [address] [place] [address], [facility] PLAT CNT 221 10*3/uL Normal 150-400 [facility] Comment on above: Order Comment: No: D o not add to previous draw Performed By: #### 3 5200 #### [facility] [address] [place] [address], [facility] RBC (Bld) [#/Vol] 3.62 10*6/uL Low 3.80-5.00 [facility] Comment on above: Order Comment: No: D o not add to previous draw Performed By: #### 3 5200 #### [facility] [address] [place] [address], [place] RDW ---- Normal 11.5-15.0 [facility] Comment on above: Order Comment: No: D o not add to previous draw Result Comment: Prev ious RDW was unable to be calculated Performed By: #### 3 5200 #### [facility] [address] [place] [address], [place] WBC (Bld) [#/Vol] 11.88 10*3/uL High 4.00-10.60 [facility] Comment on above: Order Comment: No: D o not add to previous draw Performed By: #### 3 5200 #### [facility] [address] [place] [address], [place] POC GLUCOSE LABon 03-15-2022 Glucose [Mass/Vol] 109 mg/dL High 70-100 [facility] Comment on above: Performed By: #### 8 5499 ####[facility] [facility] [place] [address], [place] POC GLUCOSE LABon 03-14-2022 Glucose [Mass/Vol] 278 mg/dL High 70-100 [facility] Comment on above: Performed By: #### 8 5499 ####[facility] [place] [address], [place] Glucose [Mass/Vol] 195 mg/dL High 70-100 [facility] Comment on above: Performed By: #### 8 5499 ####[facility] [place] [address], [place] Glucose [Mass/Vol] 114 mg/dL High 70-100 [facility] Comment on above: Performed By: #### 8 5499 ####[facility] [facility] [place] [address], [facility] Glucose [Mass/Vol] 113 mg/dL High 70-100 [facility] Comment on above: Performed By: #### 3 5200 #### [facility] [address] [facility] [place] [address], [facility] PORTABLE CHEST 1 VIEWon PORTABLE CHEST 1 VIEW [facility] [place] Department of Radiology [address] [place] [phone] Patient Name: LISE CANALES : 1955 Sex: F Age: Race: White Pt. Location: [id number] Patient Status: I Ordered Date: 03/14/2022 2:35:00 PM Completed Date: 03/14/2022 03:13 PM Requesting Provider: GAVIOTA POLANCO Attending Provider: AUGUSTIN PENN Report Copy To: Signs & Symptoms: Shortness of Breath History: Comments: Check Chest Tube Position, S/P Chest tube DC'd Exam: PORTABLE CHEST 1 VIEW PORTABLE CHEST 1 VIEW 03/14/2022 3:13 PM CLINICAL INDICATIONS: Shortness of Breath TECHNOLOGIST COMMENTS: sob QUESTION FOR THE RADIOLOGIST: Check Chest Tube Position, S/P Chest tube DC'd PROTOCOL: AP(PA) view was obtained. COMPARISON: 03/14/2022 FINDINGS: Hyperinflation and emphysematous change. Small right pleural effusion with right lower lung atelectasis versus pneumonia. IMPRESSION: Slight increase in small right pleural effusion and right lower lung atelectasis versus pneumonia. Otherwise stable chest. Electronically signed: Tyshawn Tapia. Transcribed by: [email or web address], User Resident: Electronically Signed by: TYSHAWN TAPIA @ 03/14/2022 03:31 PM Normal [facility] Comment on above: Order Comment: Check Chest Tube Position, S/P Chest tube DC'd PORTABLE CHEST 1 VIEW [facility] Department of Radiology [address] [place] [phone] Patient Name: LISE CANALES : 1955 Sex: F Age: Race: White Pt. Location: [id number] Patient Status: I Ordered Date: 03/14/2022 6:50:00 AM Completed Date: 03/14/2022 07:57 AM Requesting Provider: GAVIOTA POLANCO Attending Provider: OLI PINEDA Report Copy To: Signs & Symptoms: Post Chest Tube Clamped History: See Comments Comments: R/O Pneumothorax Exam: PORTABLE CHEST 1 VIEW PORTABLE CHEST 1 VIEW 03/14/2022 7:57 AM CLINICAL INDICATIONS: Post Chest Tube Clamped TECHNOLOGIST COMMENTS: post chest tube clamped QUESTION FOR THE RADIOLOGIST: R/O Pneumothorax PROTOCOL: AP(PA) view was obtained. COMPARISON: 03/13/2022 FINDINGS: Hyperinflation and emphysematous change. There is small right pleural effusion. No apical pneumothorax identified. IMPRESSION: Slightly increasing right lower lung atelectasis and small right pleural effusion with right chest place. No definitive pneumothorax. Electronically signed: Tyshawn Tapia. Transcribed by: [email or web address], User Resident: Electronically Signed by: TYSHAWN TAPIA @ 03/14/2022 02:56 PM Normal [facility] Comment on above: Order Comment: Check Chest Tube Position, S/P Chest tube DC'd POC GLUCOSE LABon 03-13-2022 Glucose [Mass/Vol] 282 mg/dL High 70-100 [facility] Comment on above: Performed By: #### 8 5499 ####[facility] [place] [address], [facility] Glucose [Mass/Vol] 163 mg/dL High 70-100 [facility] Comment on above: Performed By: #### 8 5499 ####[facility] [place] [address], [facility] Glucose [Mass/Vol] 149 mg/dL High 70-100 [facility] Comment on above: Performed By: #### 3 5200 #### [facility] [address] [place] [address], [facility] Glucose [Mass/Vol] 149 mg/dL High 70-100 [facility] Comment on above: Performed By: #### 8 5499 ####[facility] [place] [address], [facility] PORTABLE CHEST 1 VIEWon PORTABLE CHEST 1 VIEW [facility] [place] Department of Radiology [address] [place] [phone] Patient Name: LISE CANALES : 1955 Sex: F Age: Race: White Pt. Location: [id number] Patient Status: I Ordered Date: 03/13/2022 4:15:00 PM Completed Date: 03/13/2022 06:14 PM Requesting Provider: GAVIOTA POLANCO Attending Provider: OLI PINEDA Report Copy To: Signs & Symptoms: O2 Desaturation History: Comments: Check Chest Tube Position, s/p chest tube clamp on 03/[address] Gillis Exam: PORTABLE CHEST 1 VIEW PORTABLE CHEST 1 VIEW 03/13/2022 6:14 PM CLINICAL INDICATIONS: O2 Desaturation TECHNOLOGIST COMMENTS: Check Chest Tube Position, s/p chest tube clamp QUESTION FOR THE RADIOLOGIST: Check Chest Tube Position, s/p chest tube clamp on 03/[address] Gillis PROTOCOL: AP(PA) view was obtained. COMPARISON: This morning FINDINGS: The right-sided chest tube is unchanged in position, with its sidehole projecting within the right hemithorax unchanged. Small amount of right pleural fluid appears unchanged. There is no evidence of pneumothorax. Pulmonary hyperinflation with no new pulmonary abnormalities displayed IMPRESSION: Small right pleural effusion stable from this morning Electronically signed: Avinash Mckay. Transcribed by: [email or web address], User Resident: Electronically Signed by: AVINASH MCKAY @ 03/13/2022 06:20 PM Normal [facility] Comment on above: Order Comment: Check Chest Tube Position, S/P Chest tube DC'd PORTABLE CHEST 1 VIEW [facility] Department of Radiology [address] [place] [phone] Patient Name: LISE CANALES : 1955 Sex: F Age: Race: White Pt. Location: [address] [place] [id number] Patient Status: I Ordered Date: 03/13/2022 6:50:00 AM Completed Date: 03/13/2022 08:22 AM Requesting Provider: GAVIOTA POLANCO Attending Provider: OLI PINEDA Report Copy To: Signs & Symptoms: O2 Desaturation History: Comments: Evaluate for Aspiration Exam: PORTABLE CHEST 1 VIEW PORTABLE CHEST 1 VIEW 03/13/2022 8:22 AM CLINICAL INDICATIONS: O2 Desaturation TECHNOLOGIST COMMENTS: O2 Desaturation. QUESTION FOR THE RADIOLOGIST: Evaluate for Aspiration PROTOCOL: AP(PA) view was obtained. COMPARISON: 03/11/2022 FINDINGS: Right chest tube is in place. There is small right pleural effusion. There is increasing lower lung atelectasis. No pneumothorax. Mild vascular congestion. IMPRESSION: Small right pleural effusion with increasing right lower lung atelectasis. No pneumothorax. Mild vascular congestion. Electronically signed: Tyshawn Tapia. Transcribed by: [email or web address], User Resident: Electronically Signed by: TYSHAWN TAPIA @ 03/13/2022 08:34 AM Normal [facility] Comment on above: Order Comment: Evalu ate for Aspiration POTASSIUM BLOODon 03-13-2022 Potassium [Moles/Vol] 4.5 mmol/L Normal 3.5-5.1 [facility] Comment on above: Order Comment: No: D o not add to previous draw Performed By: #### 3 5200 #### [facility] [address] [place] [address], [facility] BASIC METABOLIC PANELon Calcium [Mass/Vol] 9.4 mg/dL Normal 8.6-10.3 [facility] Comment on above: Order Comment: Check Chest Tube Position, S/P Chest tube DC'd Performed By: #### 0 0071 ####[facility] [place] [address], [facility] Chloride [Moles/Vol] 98 mmol/L Normal 98-107 [facility] Comment on above: Order Comment: Check Chest Tube Position, S/P Chest tube DC'd Performed By: #### 0 0071 ####[facility] [facility] [place] [address], [facility] CO2 [Moles/Vol] 34 mmol/L High 21-31 [facility] Comment on above: Order Comment: Check Chest Tube Position, S/P Chest tube DC'd Performed By: #### 0 0071 ####[facility] [place] [address], [facility] Creatinine [Mass/Vol] 0.56 mg/dL Low 0.60-1.20 [facility] Comment on above: Order Comment: Check Chest Tube Position, S/P Chest tube DC'd Performed By: #### 0 0071 ####[facility] GFR/1.73 sq M.predicted among non-blacks MDRD (S/P/Bld) [Vol rate/Area] mL/min/{1.73_m2} Normal >60 [facility] Comment on above: Order Comment: Check Chest Tube Position, S/P Chest tube DC'd Result Comment: [facility]'s estimated glomerular filtration rate (eGFR) will no longer include consideration of race in its calculation. The National Kid[employer]'s eGFR Task Force developed new recommendations for the estimation of the glomerular filtration rate in the [place] They recommend immediate implementation of the new equation refit without the race variable in all laboratories because the calculation does not include race. In addition to not including race in the calculation and reporting, it included diversity in its development, and has acceptable performance characteristics and potential consequences that do not disproportionately affect any one group of individuals. Performed By: #### 0 0071 ####[facility] Glucose [Mass/Vol] 114 mg/dL High 70-100 [facility] Comment on above: Order Comment: Check Chest Tube Position, S/P Chest tube DC'd Performed By: #### 0 0071 ####[facility] Potassium [Moles/Vol] 3.3 mmol/L Low 3.5-5.1 [facility] Comment on above: Order Comment: Check Chest Tube Position, S/P Chest tube DC'd Performed By: #### 0 0071 ####[facility] Sodium [Moles/Vol] 140 mmol/L Normal 136-145 [facility] Comment on above: Order Comment: Check Chest Tube Position, S/P Chest tube DC'd Performed By: #### 0 0071 ####[facility] Urea nitrogen [Mass/Vol] 9 mg/dL Normal 7-25 [facility] Comment on above: Order Comment: Check Chest Tube Position, S/P Chest tube DC'd Performed By: #### 0 0071 ####[facility] CBC COMPLETE BLOOD COUNTon 0 - Hematocrit (Bld) [Volume fraction] 35.2 % Low 36.0-45.0 [facility] Comment on above: Order Comment: No: D o not add to previous draw Performed By: #### 3 9400 #### [facility] [address] [place] [address], [facility] Hemoglobin (Bld) [Mass/Vol] 10.1 g/dL Low 12.0-15.0 [facility] Comment on above: Order Comment: No: D o not add to previous draw Performed By: #### 3 5200 #### [facility] [address] [facility] [place] [address], [facility] IMM PLATELET FRAC 3.6 % Normal 0.8-6.3 [facility] Comment on above: Order Comment: No: D o not add to previous draw Performed By: #### 3 5200 #### [facility] [address] [place] [address], [facility] MCH (RBC) [Entitic mass] 21.9 pg Low 27.0-33.0 [facility] Comment on above: Order Comment: No: D o not add to previous draw Performed By: #### 3 5200 #### [facility] [address] [facility] [place] [address], [facility] MCHC (RBC) [Mass/Vol] 28.7 g/dL Low 32.0-35.0 [facility] Comment on above: Order Comment: No: D o not add to previous draw Performed By: #### 3 5200 #### [facility] [address] [facility] [place] [address], [facility] MCV (RBC) [Entitic vol] 76.2 fL Low 82.0-98.0 [facility] Comment on above: Order Comment: No: D o not add to previous draw Performed By: #### 3 5200 #### [facility] [address] [facility] [place] [address], [facility] Nucleated RBC/100 WBC (Bld) [Ratio] 0 % Normal 0-0 [facility] Comment on above: Order Comment: No: D o not add to previous draw Performed By: #### 3 5200 #### [facility] [address] [place] [id number], [facility] PLAT CNT 129 10*3/uL Low 150-400 [facility] Comment on above: Order Comment: No: D o not add to previous draw Performed By: #### 3 5200 #### [facility] [address] [place] [address], [place] RBC (Bld) [#/Vol] 4.62 10*6/uL Normal 3.80-5.00 [facility] Comment on above: Order Comment: No: D o not add to previous draw Performed By: #### 3 5200 #### [facility] [address] [place] [address], [place] RDW Unable to Calculate Normal 11.5-15.0 [facility] Comment on above: Order Comment: No: D o not add to previous draw Performed By: #### 3 5200 #### [facility] [address] [place] [address], [place] WBC (Bld) [#/Vol] 11.72 10*3/uL High 4.00-10.60 [facility] Comment on above: Order Comment: No: D o not add to previous draw Performed By: #### 3 5200 #### [facility] [address] [place] [address], [place] POC GLUCOSE LABon 03-12-2022 Glucose [Mass/Vol] 252 mg/dL High 70-100 [facility] Comment on above: Performed By: #### 3 5200 #### [facility] [address] [place] [address], [place] POC GLUCOSE LABon 03-11-2022 Glucose [Mass/Vol] 121 mg/dL High 70-100 [facility] Comment on above: Performed By: #### 8 5499 ####[facility] [place] [address], [place] Glucose [Mass/Vol] 122 mg/dL High 70-100 [facility] Comment on above: Performed By: #### 3 5200 #### [facility] [address] [place] [address], [place] Glucose [Mass/Vol] 86 mg/dL Normal 70-100 [facility] Comment on above: Performed By: #### 3 5200 #### [address] [address], [facility] PORTABLE CHEST 1 VIEWon PORTABLE CHEST 1 VIEW [facility] Department of Radiology [address] [place] [phone] Patient Name: LISE CANALES : 1955 Sex: F Age: Race: White Pt. Location: [address] [place] [address] Patient Status: I Ordered Date: 03/11/2022 3:25:00 PM Completed Date: 03/11/2022 03:50 PM Requesting Provider: GAVIOTA POLANCO Attending Provider: OLI PINEDA Report Copy To: Signs & Symptoms: O2 Desaturation History: Comments: Evaluate for Atelectasis Exam: PORTABLE CHEST 1 VIEW PORTABLE CHEST 1 VIEW 03/11/2022 3:50 PM CLINICAL INDICATIONS: O2 Desaturation TECHNOLOGIST COMMENTS: O2 Desaturation QUESTION FOR THE RADIOLOGIST: Evaluate for Atelectasis PROTOCOL: AP(PA) view was obtained. COMPARISON: Yesterday FINDINGS: The right-sided chest tube is unchanged in position. No residual pneumothorax is displayed on this view. Subcutaneous emphysema in the right chest wall unchanged. Pulmonary hyperinflation is unchanged with no new pulmonary or pleural abnormalities IMPRESSION: No residual pneumothorax displayed with this view. No new abnormalities Electronically signed: Avinash Mckay. Transcribed by: [email or web address], User Resident: Electronically Signed by: AVINASH MCKAY @ 03/11/2022 06:30 PM Normal [facility] Comment on above: Order Comment: Evalu ate for Atelectasis CBC COMPLETE BLOOD COUNTon 0 03-10-2022 Erythrocyte distribution width (RBC) [Ratio] 29.9 % High 11.5-15.0 [facility] Comment on above: Order Comment: No: D o not add to previous draw Performed By: #### 3 5200 #### [facility] [address] [place] [address], [facility] Hematocrit (Bld) [Volume fraction] 32.2 % Low 36.0-45.0 [facility] Comment on above: Order Comment: No: D o not add to previous draw Performed By: #### 3 5200 #### [facility] [address] [place] [address], [place] Hemoglobin (Bld) [Mass/Vol] 9.2 g/dL Low 12.0-15.0 [facility] Comment on above: Order Comment: No: D o not add to previous draw Performed By: #### 3 5200 #### [facility] [address] [place] [address], [place] IMM PLATELET FRAC 3.4 % Normal 0.8-6.3 [facility] Comment on above: Order Comment: No: D o not add to previous draw Performed By: #### 3 5200 #### [facility] [address] [place] [address], [place] MCH (RBC) [Entitic mass] 21.9 pg Low 27.0-33.0 [facility] Comment on above: Order Comment: No: D o not add to previous draw Performed By: #### 3 5200 #### [facility] [address] [place] [address], [place] MCHC (RBC) [Mass/Vol] 28.6 g/dL Low 32.0-35.0 [facility] Comment on above: Order Comment: No: D o not add to previous draw Performed By: #### 3 5200 #### [facility] [address] [place] [address], [facility] MCV (RBC) [Entitic vol] 76.7 fL Low 82.0-98.0 [facility] Comment on above: Order Comment: No: D o not add to previous draw Performed By: #### 3 5200 #### [facility] [address] [place] [address], [facility] Nucleated RBC/100 WBC (Bld) [Ratio] 0 % Normal 0-0 [facility] Comment on above: Order Comment: No: D o not add to previous draw Performed By: #### 3 5200 #### [facility] [address] [place] [address], [facility] PLAT CNT 124 10*3/uL Low 150-400 [facility] Comment on above: Order Comment: No: D o not add to previous draw Performed By: #### 3 5200 #### [facility] [address] [place] [address], [facility] RBC (Bld) [#/Vol] 4.20 10*6/uL Normal 3.80-5.00 [facility] Comment on above: Order Comment: No: D o not add to previous draw Performed By: #### 3 5200 #### [facility] [address] [place] [address], [facility] WBC (Bld) [#/Vol] 12.68 10*3/uL High 4.00-10.60 [facility] Comment on above: Order Comment: No: D o not add to previous draw Performed By: #### 3 5200 #### [facility] [address] [place] [id number], [facility] HEMOGLOBIN A1Con 03-10-2022 Glucose [Moles/Vol] 143 mmol/L Normal [facility] Comment on above: Order Comment: No: D o not add to previous draw Result Comment: Resu lt changed by BSHORT on 03/10/2022 13:15. The previous value was 140. Performed By: #### 3 1791 #### [facility] [address] [facility] [place] [address], [facility] HbA1c (Bld) [Mass fraction] 6.6 % High 4.0-6.0 [facility] Comment on above: Order Comment: No: D o not add to previous draw Result Comment: Resu lt changed by BSHORT on 03/10/2022 13:15. The previous value was 6.5. Performed By: #### 3 1791 #### [facility] [address] [place] [address], [facility] POC GLUCOSE LABon 03-10-2022 Glucose [Mass/Vol] 107 mg/dL High 70-100 [facility] Comment on above: Performed By: #### 3 5200 #### [facility] [address] [place] [address], [place] Glucose [Mass/Vol] 100 mg/dL Normal 70-100 [facility] Comment on above: Performed By: #### 8 5499 ####[facility] [place] [address], [facility] Glucose [Mass/Vol] 147 mg/dL High 70-100 [facility] Comment on above: Performed By: #### 8 5499 ####[facility] [place] [address], [place] Glucose [Mass/Vol] 65 mg/dL Low 70-100 [facility] Comment on above: Performed By: #### 8 5499 ####[facility] [place] [address], [place] PORTABLE CHEST 1 VIEWon PORTABLE CHEST 1 VIEW [facility] Department of Radiology [address] [place] [address] Patient Name: LISE CANALES : 1955 Sex: F Age: Race: White Pt. Location: [id number] Patient Status: I Ordered Date: 03/10/2022 7:40:00 AM Completed Date: 03/10/2022 09:46 AM Requesting Provider: GAVIOTA POLANCO Attending Provider: OLI PINEDA Report Copy To: Signs & Symptoms: Shortness of Breath History: Comments: Atelectasis Exam: PORTABLE CHEST 1 VIEW EXAMINATION: PORTABLE CHEST 1 VIEW 03/10/2022 9:46 AM CLINICAL HISTORY: Shortness of Breath TECHNOLOGIST COMMENTS: Shortness of Breath QUESTION FOR THE RADIOLOGIST: Atelectasis TECHNIQUE: AP(PA) view was obtained. COMPARISON: Comparison is made with prior chest radiograph of 03/09/2022. FINDINGS: Right-sided chest tube remains unchanged in position. There is a right-sided pneumothorax and measures 2 cm in thickness. Both lungs are hyperinflated with evidence of emphysema and COPD. Minimal atelectasis is seen in the right mid lung field. Both costophrenic angles are otherwise clear. There is a soft tissue air along the right lateral chest wall with the decrease in amount from prior study. Heart is normal in size and it is in midline. Trachea is in midline. Hemidiaphragms are normal in position. Rib cage is intact. IMPRESSION: 1. Right-sided chest tube remains unchanged in position. 2. There is a small right apical pneumothorax and measures 2 cm in thickness. 3. There is a soft tissue air along the right lateral chest wall with interval decrease in amount since prior study. 4. Emphysema and COPD. No pleural effusions are seen. 5. Progress study is recommended. Electronically signed: Derek Ingram. Transcribed by: [email or web address], User Resident: Electronically Signed by: DEREK INGRAM @ 03/10/2022 12:10 PM Normal [facility] Comment on above: Order Comment: No: D o not add to previous draw *URINE CULTUREon 03-09-2022 *URINE CULTURE Clinical Report: (D) Specimen/Source: URINE/CLEAN VOID URINE Collected: 03/09/2022 01:58 Status: Final Last Updated: 03/10/2022 08:51 ISO (Final) 50,000 - 100,000 Cfu/mL Mixed Lexi: Multiple Organisms present suggest contamination. Suggest Repeat Specimen Normal [facility] Comment on above: Performed By: #### 3 0339 ####[facility] CBC W/DIFFon 03-09-2022 ABS IMM GRANS 0.1 10*3/uL Normal 0.0-0.2 [facility] Comment on above: Order Comment: Check Chest Tube Position, S/P Chest tube DC'd Performed By: #### 5 0103 ####[facility] [facility].[address] ABS NEUTROPHILS 13.3 10*3/uL High 1.6-7.6 [facility] Comment on above: Order Comment: Check Chest Tube Position, S/P Chest tube DC'd Performed By: #### 5 0103 ####[facility] ANISO Moderate Normal [facility] Comment on above: Order Comment: Check Chest Tube Position, S/P Chest tube DC'd Performed By: #### 5 0103 ####[facility] [facility].[address] Basophils (Bld) [#/Vol] 0.0 10*3/uL Normal 0.0-0.2 [facility] Comment on above: Order Comment: Check Chest Tube Position, S/P Chest tube DC'd Performed By: #### 5 0103 ####[facility] [facility] [place] [address], [facility] Basophils/100 WBC (Bld) 0.3 % Normal 0.0-1.0 [facility] Comment on above: Order Comment: Check Chest Tube Position, S/P Chest tube DC'd Performed By: #### 0103 ####[facility] Eosinophils (Bld) [#/Vol] 0.1 10*3/uL Normal 0.0-0.5 [facility] Comment on above: Order Comment: Check Chest Tube Position, S/P Chest tube DC'd Performed By: #### 0103 ####[facility] [place] [address], [facility] Eosinophils/100 WBC (Bld) 0.5 % Normal 0.0-6.0 [facility] Comment on above: Order Comment: Check Chest Tube Position, S/P Chest tube DC'd Performed By: #### 3 ####[facility] Erythrocyte distribution width (RBC) [Ratio] 28.7 % High 11.5-15.0 [facility] Comment on above: Order Comment: Check Chest Tube Position, S/P Chest tube DC'd Performed By: #### 5 0103 ####[facility] Hematocrit (Bld) [Volume fraction] 29.1 % Low 36.0-45.0 [facility] Comment on above: Order Comment: Check Chest Tube Position, S/P Chest tube DC'd Performed By: #### 3 ####[facility] Hemoglobin (Bld) [Mass/Vol] 8.3 g/dL Low 12.0-15.0 [facility] Comment on above: Order Comment: Check Chest Tube Position, S/P Chest tube DC'd Performed By: #### 5 0103 ####[facility] HYPO Slight Normal [facility] Comment on above: Order Comment: Check Chest Tube Position, S/P Chest tube DC'd Performed By: #### 5 0103 ####[facility] IMMATURE GRANS 0.5 % Normal 0.0-1.0 [facility] Comment on above: Order Comment: Check Chest Tube Position, S/P Chest tube DC'd Performed By: #### 5 3 ####[facility] Lymphocytes (Bld) [#/Vol] 0.8 10*3/uL Low 1.2-4.0 [facility] Comment on above: Order Comment: Check Chest Tube Position, S/P Chest tube DC'd Performed By: #### 5 3 ####[facility] Lymphocytes/100 WBC (Bld) 5.5 % Low 20.0-45.0 [facility] Comment on above: Order Comment: Check Chest Tube Position, S/P Chest tube DC'd Performed By: #### 5 3 ####[facility] MCH (RBC) [Entitic mass] 21.7 pg Low 27.0-33.0 [facility] Comment on above: Order Comment: Check Chest Tube Position, S/P Chest tube DC'd Performed By: #### 5 3 ####[facility] MCHC (RBC) [Mass/Vol] 28.5 g/dL Low 32.0-35.0 [facility] Comment on above: Order Comment: Check Chest Tube Position, S/P Chest tube DC'd Performed By: #### 5 0103 ####[facility] MCV (RBC) [Entitic vol] 76.2 fL Low 82.0-98.0 [facility] Comment on above: Order Comment: Check Chest Tube Position, S/P Chest tube DC'd Performed By: #### 5 0103 ####[facility] Monocytes (Bld) [#/Vol] 1.1 10*3/uL High 0.1-1.0 [facility] Comment on above: Order Comment: Check Chest Tube Position, S/P Chest tube DC'd Performed By: #### 5 0103 ####[facility] MONOS 7.3 % Normal 5.0-12.0 [facility] Comment on above: Order Comment: Check Chest Tube Position, S/P Chest tube DC'd Performed By: #### 5 0103 ####[facility] Neutrophils/100 WBC (Bld) 85.9 % High 40.0-72.0 [facility] Comment on above: Order Comment: Check Chest Tube Position, S/P Chest tube DC'd Performed By: #### 5 0103 ####[facility] Nucleated RBC/100 WBC (Bld) [Ratio] 0 % Normal 0-0 [facility] Comment on above: Order Comment: Check Chest Tube Position, S/P Chest tube DC'd Performed By: #### 5 0103 ####[facility] [facility].[address] PLAT CNT 149 10*3/uL Low 150-400 [facility] Comment on above: Order Comment: Check Chest Tube Position, S/P Chest tube DC'd Performed By: #### 5 0103 ####[facility] [facility].[address] POIK Slight Normal [facility] Comment on above: Order Comment: Check Chest Tube Position, S/P Chest tube DC'd Performed By: #### 5 0103 ####[facility] POLY Slight Normal [facility] Comment on above: Order Comment: Check Chest Tube Position, S/P Chest tube DC'd Performed By: #### 5 0103 ####[facility] RBC (Bld) [#/Vol] 3.82 10*6/uL Normal 3.80-5.00 [facility] Comment on above: Order Comment: Check Chest Tube Position, S/P Chest tube DC'd Performed By: #### 5 0103 ####[facility] [facility].[address] WBC (Bld) [#/Vol] 15.41 10*3/uL High 4.00-10.60 [facility] Comment on above: Order Comment: Check Chest Tube Position, S/P Chest tube DC'd Performed By: #### 5 0103 ####[facility] COMP METABOLIC PANELon 03-09 Albumin [Mass/Vol] 3.8 g/dL Normal 3.5-5.7 [facility] Comment on above: Order Comment: No: D o not add to previous draw Performed By: #### 3 5200, 31962, 46612, 30983 #### [facility] [address] [place] [address], [place] ALKALINE PHOSPH 52 IU/L Normal 34-104 [facility] Comment on above: Order Comment: No: D o not add to previous draw Performed By: #### 3 5200, 03702, 78672, 91818 #### [facility] [address] [place] [address], [place] ALT [Catalytic activity/Vol] 13 U/L Normal 7-52 [facility] Comment on above: Order Comment: No: D o not add to previous draw Performed By: #### 3 5200, 93702, 28715, 02806 #### [facility] [address] [place] [address], [place] AST [Catalytic activity/Vol] 14 U/L Normal 13-39 [facility] Comment on above: Order Comment: No: D o not add to previous draw Performed By: #### 3 0, 39251, 05046, 77254 #### [facility] [address] [place] [address], [place] Bilirubin [Mass/Vol] 0.4 mg/dL Normal 0.3-1.0 [facility] Comment on above: Order Comment: No: D o not add to previous draw Performed By: #### 3 0, 56835, 57333, 24762 #### [facility] [address] [place] [address], [place] Calcium [Mass/Vol] 9.2 mg/dL Normal 8.6-10.3 [facility] Comment on above: Order Comment: No: D o not add to previous draw Performed By: #### 3 5200, 44671, 36972, 35499 #### [facility] [address] [place] [address], [place] Chloride [Moles/Vol] 99 mmol/L Normal 98-107 [facility] Comment on above: Order Comment: No: D o not add to previous draw Performed By: #### 3 5200, 57138, 00767, 40148 #### [facility] [address] CO2 [Moles/Vol] 33 mmol/L High 21-31 [facility] Comment on above: Order Comment: No: D o not add to previous draw Performed By: #### 3 5200, 03789, 39370, 17472 #### [facility] [address] Creatinine [Mass/Vol] 0.79 mg/dL Normal 0.55-1.02 [facility] Comment on above: Order Comment: No: D o not add to previous draw Performed By: #### 3 5200, 11017, 93024, 62277 #### [facility] [address] [facility]. [address] Performed By: #### B LDCX1 #### [facility] [address] [place] [address] Dr. Kayley Hatfield GFR/1.73 sq M.predicted among non-blacks MDRD (S/P/Bld) [Vol rate/Area] mL/min/{1.73_m2} Normal >60 [facility] Comment on above: Order Comment: No: D o not add to previous draw Result Comment: [facility]'s estimated glomerular filtration rate (eGFR) will no longer include consideration of race in its calculation. The [employer]'s eGFR Task Force developed new recommendations for the estimation of the glomerular filtration rate in the [place] They recommend immediate implementation of the new equation refit without the race variable in all laboratories because the calculation does not include race. In addition to not including race in the calculation and reporting, it included diversity in its development, and has acceptable performance characteristics and potential consequences that do not disproportionately affect any one group of individuals. Performed By: #### 3 5200, 93782, 25752, 82510 #### [facility] [address] [place] [address], [place] Glucose [Mass/Vol] 125 mg/dL High 70-100 [facility] Comment on above: Order Comment: No: D o not add to previous draw Performed By: #### 3 5200, 56455, 80059, 19019 #### [facility] [address] [place] [address], [place] Potassium [Moles/Vol] 4.7 mmol/L Normal 3.5-5.1 [facility] Comment on above: Order Comment: No: D o not add to previous draw Performed By: #### 3 5200, 93246, 41263, 72241 #### [facility] [address] [place] [address], [place] Protein [Mass/Vol] 5.9 g/dL Low 6.0-8.3 [facility] Comment on above: Order Comment: No: D o not add to previous draw Performed By: #### 3 5200, 26227, 69468, 76258 #### [facility] [address] [place] [address], [place] Sodium [Moles/Vol] 136 mmol/L Normal 136-145 [facility] Comment on above: Order Comment: No: D o not add to previous draw Performed By: #### 3 5200, 98077, 72699, 49551 #### [facility] [address] [place] [address], [place] Urea nitrogen [Mass/Vol] 12 mg/dL Normal 7-25 [facility] Comment on above: Order Comment: No: D o not add to previous draw Performed By: #### 3 5200, 37980, 95844, 56448 #### [facility] [address] [place] [address], [place] LIPID PROFILEon 03-09-2022 Cholesterol [Mass/Vol] 160 mg/dL Normal 120-200 [facility] Comment on above: Order Comment: No: D o not add to previous draw Result Comment: CHOL ESTEROL REFERENCE RANGE: 20 YEARS AND OLDER CARDIOVASCULAR RISK Less than 200 mg/dl Low Risk 200 to 239 mg/dl Borderline Risk 240 mg/dl and greater High Risk Performed By: #### 3 5200, 73919, 85055, 69768 #### [facility] [address] [place] [address], [place] Cholesterol in HDL [Mass/Vol] 76 mg/dL Normal 23-92 [facility] Comment on above: Order Comment: No: D o not add to previous draw Result Comment: Slig ht variation in normal range could be due to gender and/or age. HDL CHOLESTEROL REFERENCE RANGE: 20 years and older Cardiovascular Risk > or =60 mg/dL Desirable 40 TO 59 mg/dL Low Risk <40 mg/dL High Risk Performed By: #### 3 5200, 07100, 75831, 95616 #### [facility] [address] [place] [address], [place] Cholesterol in LDL [Mass/Vol] 48 mg/dL Normal 0-130 [facility] Comment on above: Order Comment: No: D o not add to previous draw Result Comment: LDL IS A CALCULATION LDL IS ONLY VALID IF THE TRIG IS LESS THAN 400. Performed By: #### 3 5200, 41907, 69457, 72273 #### [facility] [address] [place] [address], [place] Cholesterol.total/Cho lesterol in HDL [Mass ratio] 2.1 {ratio} Normal .0-4.5 [facility] Comment on above: Order Comment: No: D o not add to previous draw Performed By: #### 3 5200, 60416, 73957, 54906 #### [facility] [address] [place] [address], [place] NON-HDL CHOLESTEROL 84 mg/dL Normal [facility] Comment on above: Order Comment: No: D o not add to previous draw Performed By: #### 3 5200, 51012, 90200, 47540 #### [facility] [address] Triglyceride [Mass/Vol] 179 mg/dL High 40-149 [facility] Comment on above: Order Comment: No: D o not add to previous draw Result Comment: TRIG LYCERIDE REFERENCE RANGE: 20 YEARS AND OLDER CARDIOVASCULAR RISK LESS THAN 150 mg/dl LOW RISK 150 TO 199 mg/dl BORDERLINE RISK 200 mg/dl AND GREATER HIGH RISK Performed By: #### 3 5200, 06902, 06944, 74815 #### [facility] [address] [facility] [place] [address], [facility] VLDL CHOL 36 mg/dL Normal 0-40 [facility] Comment on above: Order Comment: No: D o not add to previous draw Performed By: #### 3 5200, 02779, 14247, 18436 #### [facility] [address] [facility]. [address] POC GLUCOSE LABon 03-09-2022 Glucose [Mass/Vol] 105 mg/dL High 70-100 [facility] Comment on above: Performed By: #### 8 5499 ####[facility] [facility].[address] POC SARS COV2 ANTIGEN NEGATI VEon 03-09-2022 POC SARS COV2 ANTIGEN NEG Negative Normal NEGATIVE [facility] Comment on above: Result Comment: Nega tive results should be treated as presumptive and confirmation with a molecular assay, if necessary, for patient management, may be performed. Negative results do not rule out SARS-CoV-2 infection and not should be used as the sole basis for treatment or patient management decisions, including infection control decisions. Negative results should be considered in the context of a patient's recent exposures, history, and the presence of clinical signs and symptoms consistent with COVID-19. The [employer]arity COVID-19 Antigen Rapid Test Cassette is a rapid chromatographic immunoassay intended for the qualitative detection of the nucleocapsid protein antigen from SARS-CoV-2 in direct nasopharyngeal swab (AGRICULTURAL EDUCATION INSTRUCTOR) specimens from individuals who are suspected of COVID-19 by their healthcare provider within the first six days of symptom onset. Testing is limited to laboratories certified under the Clinical Laboratory Improvement Amendments of 1988 (CLIA), 42 U.S.C. ???263a, that meet the requirements to perform moderate complexity, high complexity, or waived tests. This test is authorized for use at the Point of Care (POC), i.e., in patient care settings operating under a CLIA Certificate of Waiver, Certificate of Compliance, or Certificate of Accreditation. Performed By: #### 3 2044 ####[place] [address] [address] PORTABLE CHEST 1 VIEWon PORTABLE CHEST 1 VIEW [facility] Department of Radiology [address] [place] [address] Patient Name: LISE CANALES : 1955 Sex: F Age: Race: White Pt. Location: [address] [place] [id number] Patient Status: I Ordered Date: 03/09/2022 8:55:00 AM Completed Date: 03/09/2022 09:37 AM Requesting Provider: OLI PINEDA Attending Provider: IMAN WILLIS Report Copy To: Signs & Symptoms: Pneumo Thorax History: See Comments Comments: Check Chest Tube Position Exam: PORTABLE CHEST 1 VIEW EXAMINATION: PORTABLE CHEST 1 VIEW 03/09/2022 9:37 AM CLINICAL HISTORY: Pneumo Thorax TECHNOLOGIST COMMENTS: Check Chest Tube Position History of pneumothorax QUESTION FOR THE RADIOLOGIST: Check Chest Tube Position TECHNIQUE: AP(PA) view was obtained. COMPARISON: Comparison is made with the chest radiographs of 07/19/2016. FINDINGS: There is a right-sided chest tube and appears satisfactory in position. There is no evidence of significant pneumothorax on current examination. There is a soft tissue air along the right lateral chest wall and lower neck. Both lungs are hyperinflated with low position of hemidiaphragms consistent with emphysema and COPD. No pleural effusions are identified. Heart is normal in size and it is in midline. Trachea is in midline. Mediastinum is otherwise unremarkable. No free air is seen in the upper abdomen. Rib cage appears intact. IMPRESSION: 1. Right-sided chest tube is in satisfactory position. 2. No large pneumothorax is identified on current examination. There is a soft tissue emphysema or air along the right lateral chest wall and lower neck. 3. Emphysema and COPD. Electronically signed: Derek Ingram. Transcribed by: [email or web address], User Resident: Electronically Signed by: DEREK INGRAM @ 03/09/2022 02:48 PM Normal [facility] Comment on above: Order Comment: Check Chest Tube Position, S/P Chest tube DC'd TROPONIN-Ion 03-09-2022 Troponin I.cardiac [Mass/Vol] 0.00 ng/mL Normal 0.00-0.04 [facility] Comment on above: Order Comment: No: D o not add to previous draw Result Comment: REFE RENCE RANGES: 0.00 - 0.04 ng/ml NORMAL 0.05 - 0.50 ng/ml INDETERMINATE > 0.50 ng/ml CONSISTENT WITH AN M.I. Performed By: #### 3 5200, 61760, 44406, 57025 #### [facility] [address] [facility]. [address] Troponin I.cardiac [Mass/Vol] 0.01 ng/mL Normal 0.00-0.04 [facility] Comment on above: Order Comment: No: D o not add to previous draw Result Comment: REFE RENCE RANGES: 0.00 - 0.04 ng/ml NORMAL 0.05 - 0.50 ng/ml INDETERMINATE > 0.50 ng/ml CONSISTENT WITH AN M.I. Performed By: #### 3 5200 #### [facility] [address] Troponin I.cardiac [Mass/Vol] 0.00 ng/mL Normal 0.00-0.04 [facility] Comment on above: Order Comment: No: D o not add to previous draw Result Comment: REFE RENCE RANGES: 0.00 - 0.04 ng/ml NORMAL 0.05 - 0.50 ng/ml INDETERMINATE > 0.50 ng/ml CONSISTENT WITH AN M.I. Performed By: #### 3 5200, [id number], [id number], 11070 #### [facility] [address] TSH3 WITH REFLEX FT4on 03-09 TSH 3RD GENERATION 0.60 uIU/mL Normal 0.34-5.60 [facility] Comment on above: Order Comment: No: D o not add to previous draw Performed By: #### 3 5200, [id number], [id number], [id number] #### [facility] [address] [facility] [address] URINALYSIS REFLEXon 03-09-20 Appearance (U) CLEAR Normal CLEAR [facility] Comment on above: Order Comment: Check Chest Tube Position, S/P Chest tube DC'd Performed By: #### 3 0938 ####[facility] [place] [address], [facility] Bilirubin Ql (U) Negative Normal NEGATIVE [facility] Comment on above: Order Comment: Check Chest Tube Position, S/P Chest tube DC'd Performed By: #### 3 0965 ####[facility] [place] [address], [facility] Color (U) STRAW Abnormal YELLOW [facility] Comment on above: Order Comment: Check Chest Tube Position, S/P Chest tube DC'd Performed By: #### 3 0965 ####[facility] [place] [address], [facility] EPIS OCC Normal FEW,OCC,NONE SEEN [facility] Comment on above: Order Comment: Check Chest Tube Position, S/P Chest tube DC'd Performed By: #### 3 0965 ####[facility] [place] [address], [facility] Glucose Ql (U) Negative Normal NEGATIVE [facility] Comment on above: Order Comment: Check Chest Tube Position, S/P Chest tube DC'd Performed By: #### 3 0965 ####[facility] [place] [address], [facility] Hemoglobin Ql (U) MODERATE Abnormal NEGATIVE [facility] Comment on above: Order Comment: Check Chest Tube Position, S/P Chest tube DC'd Performed By: #### 3 0965 ####[facility] [place] [address], [facility] KETONE Negative Normal NEGATIVE [facility] Comment on above: Order Comment: Check Chest Tube Position, S/P Chest tube DC'd Performed By: #### 3 0965 ####[facility] [place] [address], [facility] LEUK SHARMIN SMALL Abnormal NEGATIVE [facility] Comment on above: Order Comment: Check Chest Tube Position, S/P Chest tube DC'd Performed By: #### 3 0965 ####[facility] [place] [address], [facility] MUCUS THREADS OCC Abnormal NONE SEEN [facility] Comment on above: Order Comment: Check Chest Tube Position, S/P Chest tube DC'd Performed By: #### 3 0965 ####[facility] [place] [address], [facility] Nitrite Ql (U) Negative Normal NEGATIVE [facility] Comment on above: Order Comment: Check Chest Tube Position, S/P Chest tube DC'd Performed By: #### 3 0965 ####[facility] pH (U) 6.0 [pH] Normal 5.0-8.0 [facility] Comment on above: Order Comment: Check Chest Tube Position, S/P Chest tube DC'd Performed By: #### 3 0965 ####[facility] [facility].[address] Protein Ql (U) Negative Normal NEGATIVE [facility] Comment on above: Order Comment: Check Chest Tube Position, S/P Chest tube DC'd Performed By: #### 3 0965 ####[facility] RBC 6-10 Abnormal NONE SEEN [facility] Comment on above: Order Comment: Check Chest Tube Position, S/P Chest tube DC'd Performed By: #### 3 0965 ####[place] [address] SPEC GRAV 1.015 Normal 1.015-1.020 [facility] Comment on above: Order Comment: Check Chest Tube Position, S/P Chest tube DC'd Performed By: #### 3 0965 ####[place] [address] WBC UA 11-20 Abnormal NONE SEEN [facility] Comment on above: Order Comment: Check Chest Tube Position, S/P Chest tube DC'd Performed By: #### 3 0965 ####[facility] CBC W MANUAL DIFFon 03-08-20 22 ATYPICAL LYMPH # Normal [facility] Comment on above: Performed By: #### C VDTBH #### [facility] [address] [place] [address] Dr. Kayley Hatfield ATYPICAL LYMPH % Normal [facility] Comment on above: Performed By: #### C VDTBH #### [facility] [address] [address] [address] Kyaley Hatfield BAND # Normal 0.0-0.3 [facility] Comment on above: Performed By: #### C VDTBH #### [facility] [address] [place] [address] Dr. Kayley Hatfield BAND % Normal 0-5 [facility] Comment on above: Performed By: #### C VDTBH #### [facility] [address] [place] [address] Dr. Kayley Hatfield BASOM # 0.00 103/ul Normal 0.00-0.10 [facility] Comment on above: Performed By: #### C VDTBH #### [facility] [address] [place] [address] Dr. Kayley Hatfield BASOM % 0.0 % Critically low 0.2-2.0 [facility] Comment on above: Performed By: #### C VDTBH #### [facility] [address] [place] [address] Dr. Kayley Hatfield BLAST # Normal [facility] Comment on above: Performed By: #### C VDTBH #### [facility] [address] [place] [address] Dr. Kayley Hatfield BLAST % Normal [facility] Comment on above: Performed By: #### C VDTBH #### [facility] [address] [place] [address] Dr. Kayley Hatfield CORRECTED WBC Normal 4.0-11.0 [facility] Comment on above: Performed By: #### C VDTBH #### [facility] [address] [place] [address] Dr. Kayley Hatfield EOS # 0.14 103/ul Normal 0.00-0.70 [facility] Comment on above: Performed By: #### C VDTBH #### [facility] [address] [place] [address] Dr. Kayley Hatfield EOS% 1.0 % Normal 0.9-7.0 [facility] Comment on above: Performed By: #### C VDTBH #### [facility] [address] [place] [address] Dr. Kayley Hatfield HCT 27.5 % Critically low 36.0-48.0 [facility] Comment on above: Performed By: #### C VDTBH #### [facility] [address] [place] [address] Dr. Kayley Hatfield HGB 7.9 g/dl Critically low 12.0-16.0 [facility] Comment on above: Performed By: #### C VDTBH #### [facility] [address] [address] [address] Kayley Hatfield LYMPHM # 1.42 103/ul Normal 1.20-3.80 [facility] Comment on above: Performed By: #### C VDTBH #### [facility] [address] [place] [address] Dr. Kayley Hatfield LYMPHM% 10.0 % Critically low 20.5-60.0 [facility] Comment on above: Performed By: #### C VDTBH #### [facility] [address] [place] [address] Dr. Kayley Hatfield MCH 21.5 pg Critically low 26.7-34.0 [facility] Comment on above: Performed By: #### C VDTBH #### [facility] [address] [place] [address] Dr. Kayley Hatfield MCHC 28.7 g/dl Critically low 29.9-35.2 [facility] Comment on above: Performed By: #### C VDTBH #### [facility] [address] [place] [address] Dr. Kayley Hatfield MCV 74.7 fL Critically low 81.0-99.0 [facility] Comment on above: Performed By: #### C VDTBH #### [facility] [address] [place] [address] Dr. Kayley Hatfield METAMYELOCYTE # Normal [facility] Comment on above: Performed By: #### C VDTBH #### [facility] [address] [place] [address] Dr. Kayley Hatfield METAMYELOCYTE % Normal [facility] Comment on above: Performed By: #### C VDTBH #### [facility] [address] [address] [address] Kayley Hatfield MONOM# 2.13 103/ul Critically high 0.30-0.80 [facility] Comment on above: Performed By: #### C VDTBH #### [facility] [address] [address] [address] Kayley Hatfield MONOM% 15.0 % Critically high 1.7-12.0 [facility] Comment on above: Performed By: #### C VDTBH #### [facility] [address] [address] [address] Kayley Hatfield MPV 9.5 fL Normal 9.5-13.5 [facility] Comment on above: Performed By: #### C VDTBH #### [facility] [address] [place] [address] Dr. Kayley Hatfield MYELOCYTE # Normal [facility] Comment on above: Performed By: #### C VDTBH #### [facility] [address] [place] [address] Dr. Kayley Hatfield MYELOCYTE % Normal [facility] Comment on above: Performed By: #### C VDTBH #### [facility] [address] [place] [address] Dr. Kayley Hatfield NRBC Normal [facility] Comment on above: Performed By: #### C VDTBH #### [facility] [address] [place] [address] Dr. Kayley Hatfield PLT 180 103/ul Normal 150-450 [facility] Comment on above: Performed By: #### C VDTBH #### [facility] [address] [place] [address] Dr. Kayley Hatfield RBC 3.68 106/ul Critically low 4.20-5.40 [facility] Comment on above: Performed By: #### C VDTBH #### [facility] [address] [place] [address] Dr. Kayley Hatfield RDW 27.5 % Critically high 11.0-15.0 [facility] Comment on above: Performed By: #### C VDTBH #### [facility] [address] [place] [address] Dr. Kayley Hatfield SEG # 10.51 103/ul Critically high 1.40-6.50 [facility] Comment on above: Performed By: #### C VDTBH #### [facility] [address] [place] [address] Dr. Kayley Hatfield SEG % 74.0 % Normal 43.0-75.0 [facility] Comment on above: Performed By: #### C VDTBH #### [facility] [address] [place] [address] Dr. Kayley Hatfield WBC 14.2 103/ul Critically high 4.0-11.0 [facility] Comment on above: Performed By: #### C VDTBH #### [facility] [address] [place] [address] Dr. Kayley Hatfield PRBC LEUKOREDUCEDon 03-08-20 22 ABO and Rh group Nom (Bld) Cross Match Result Compatible Unit Blood Type O Pos Unit Number [id number] Status Information Transfused Product ID Red Blood Cells Product Code [id number] Cross Match Result Compatible Blood Bank Notes CALLED TO VIC IN ICU @1657 Unit Blood Type O Pos Unit Number [id number] Status Information Transfused Product ID Red Blood Cells Product Code [id number] Normal [facility] Comment on above: Performed By: #### P RBC #### [facility] [address] [place] [address] Dr. Kayley Hatfield PROF CHEM 8 (BAS METB)on Anion gap [Moles/Vol] 10.1 mmol/L Normal [facility] Comment on above: Performed By: #### B LDCX1 #### [facility] [address] [place] [address] Dr. Kayley Hatfield Calcium [Mass/Vol] 8.8 mg/dL Normal 8.5-10.1 [facility] Comment on above: Performed By: #### B LDCX1 #### [facility] [address] [place] [address] Dr. Kayley Hatfield Chloride [Moles/Vol] 100 mmol/L Normal 98-107 [facility] Comment on above: Performed By: #### B LDCX1 #### [facility] [address] [address] [address] Kayley Hatfield CO2 [Moles/Vol] 34.2 mmol/L Critically high 21.0-32.0 [facility] Comment on above: Performed By: #### B LDCX1 #### [facility] [address] [address] [address] Kayley Hatfield EGFR-AF TURKS AND CAICOS ISLANDER >60 Normal >=60 [facility] Comment on above: Performed By: #### B LDCX1 #### [facility] [address] [place] [address] Dr. Kayley Hatfield EGFR-NON AF TURKS AND CAICOS ISLANDER >60 Normal >=60 [facility] Comment on above: Performed By: #### B LDCX1 #### [facility] [address] [address] [address] Kayley Hatfield Glucose [Mass/Vol] 107 mg/dL Critically high 74-106 [facility] Comment on above: Performed By: #### B LDCX1 #### [facility] [address] [address] [address] Kayley Hatfield Potassium [Moles/Vol] 4.3 mmol/L Normal 3.5-5.1 [facility] Comment on above: Performed By: #### B LDCX1 #### [facility] [address] [address] [address] Kayley Hatfield Sodium [Moles/Vol] 140 mmol/L Normal 136-145 [facility] Comment on above: Performed By: #### B LDCX1 #### [facility] [address] [address] [address] Kayley Hatfield Urea nitrogen [Mass/Vol] 15.0 mg/dL Normal 7.0-18.0 [facility] Comment on above: Performed By: #### B LDCX1 #### [facility] [address] [address] [address] Kayley Hatfield Urea nitrogen/Creatinine [Mass ratio] 19.0 mg/mg Normal [facility] Comment on above: Performed By: #### B LDCX1 #### [facility] [address] [address] [address] Kayley Hatfield XR CHEST 1 Von 03-08-2022 XR CHEST 1 V EXAMINATION: XR CHES T 1 V HISTORY: Right pneumothorax COMPARISON: XR chest 03/07/2022 FINDINGS: LUNGS: Stable right chest tube. Mild haziness within right lung favoring atelectasis. VASCULATURE: No increased pulmonary vasculature. PLEURA: Large right pneumothorax, 2.7 cm at the apex. CARDIAC: No cardiomegaly or cardiac silhouette abnormality. MEDIASTINUM: No visible mass or adenopathy. BONES: No fracture or visible bone lesion. OTHER: Negative. IMPRESSION: 1. Interval redevelopment of large right apical pneumothorax, 2.7 cm in apex. 2. Stable positioning of right chest tube. Electronically authenticated by: MIGUE REYNOSO Date: 2022-03-08 07:02 Normal [facility] CBC W MANUAL DIFFon 03-07-20 22 ACANTHOCYTES SLIGHT Normal [facility] Comment on above: Performed By: #### B LDCX1 #### [facility] [address] [place] [address] Dr. Kayley Hatfield ANISOCYTOSIS 2+ Normal [facility] Comment on above: Performed By: #### B LDCX1 #### [facility] [address] [place] [address] Dr. Kayley Hatfield ATYPICAL LYMPH # Normal [facility] Comment on above: Performed By: #### B LDCX1 #### [facility] [address] [place] [address] Dr. Kayley Hatfield ATYPICAL LYMPH % Normal [facility] Comment on above: Performed By: #### B LDCX1 #### [facility] [address] [place] [address] Dr. Kayley Hatfield BAND # 0.0 103/ul Normal 0.0-0.3 [facility] Comment on above: Performed By: #### B LDCX1 #### [facility] [address] [place] [address] Dr. Kayley Hatfield BAND % 0 % Normal 0-5 [facility] Comment on above: Performed By: #### B LDCX1 #### [facility] [address] [address] [address] Kayley PINZONOM # 0.00 103/ul Normal 0.00-0.10 [facility] Comment on above: Performed By: #### B LDCX1 #### [facility] [address] [address] [address] Kayley Hatfield BASOM % 0.0 % Critically low 0.2-2.0 [facility] Comment on above: Performed By: #### B LDCX1 #### [facility] [address] [place] [address] Dr. Kayley Hatfield BLAST # Normal [facility] Comment on above: Performed By: #### B LDCX1 #### [facility] [address] [place] [address] Dr. Kayley Hatfield BLAST % Normal [facility] Comment on above: Performed By: #### B LDCX1 #### [facility] [address] [place] [address] Dr. Kayley Hatfield ANDREE CELLS SLIGHT Normal [facility] Comment on above: Performed By: #### B LDCX1 #### [facility] [address] [place] [address] Dr. Kayley Hatfield CORRECTED WBC Normal 4.0-11.[address] [facility] Comment on above: Performed By: #### B LDCX1 #### [facility] [address] [address] [address] Kayley Hatfield EOS # 0.16 103/ul Normal 0.00-0.70 [facility] Comment on above: Performed By: #### B LDCX1 #### [facility] [address] [place] [address] Dr. Kayley Hatfield EOS% 1.0 % Normal 0.9-7.0 [facility] Comment on above: Performed By: #### B LDCX1 #### [facility] [address] [place] [address] Dr. Kayley Hatfield GIANT PLATELETS SEEN Normal [facility] Comment on above: Performed By: #### B LDCX1 #### [facility] [address] [address] [address] Kayley Hatfield HCT 31.1 % Critically low 36.0-48.0 [facility] Comment on above: Performed By: #### B LDCX1 #### [facility] [address] [address] [address] Kayley Hatfield HGB 9.1 g/dl Critically low 12.0-16.0 [facility] Comment on above: Performed By: #### B LDCX1 #### [facility] [address] [address] [address] Kayley Hatfield HYPOCHROMASIA 1+ Normal [facility] Comment on above: Performed By: #### B LDCX1 #### [facility] [address] [address] [address] Kayley Hatfield LYMPHM # 2.09 103/ul Normal 1.20-3.80 [facility] Comment on above: Performed By: #### B LDCX1 #### [facility] [address] [address] [address] Kayley Hatfield LYMPHM% 13.0 % Critically low 20.5-60.0 [facility] Comment on above: Performed By: #### B LDCX1 #### [facility] [address] [address] [address] Kayley Hatfield MCH 21.4 pg Critically low 26.7-34.0 [facility] Comment on above: Performed By: #### B LDCX1 #### [facility] [address] [address] [address] Kayley Hatfield MCHC 29.3 g/dl Critically low 29.9-35.2 [facility] Comment on above: Performed By: #### B LDCX1 #### [facility] [address] [address] [address] Kayley Hatfield MCV 73.0 fL Critically low 81.0-99.0 [facility] Comment on above: Performed By: #### B LDCX1 #### [facility] [address] [address] [address] Kayley Hatfield METAMYELOCYTE # Normal [facility] Comment on above: Performed By: #### B LDCX1 #### [facility] [address] [place] [address] Dr. Kayley Hatfield METAMYELOCYTE % Normal [facility] Comment on above: Performed By: #### B LDCX1 #### [facility] [address] [address] [address] Kayley Hatfield MICROCYTOSIS SLIGHT Normal [facility] Comment on above: Performed By: #### B LDCX1 #### [facility] [address] [place] [address] Dr. Kayley Hatfield MONOM# 0.48 103/ul Normal 0.30-0.80 [facility] Comment on above: Performed By: #### B LDCX1 #### [facility] [address] [place] [address] Dr. Kayley Hatfield MONOM% 3.0 % Normal 1.7-12.0 [facility] Comment on above: Performed By: #### B LDCX1 #### [facility] [address] [place] [address] Dr. Kayley Hatfield MPV 8.9 fL Critically low 9.5-13.5 [facility] Comment on above: Performed By: #### B LDCX1 #### [facility] [address] [place] [address] Dr. Kayley Hatfield MYELOCYTE # Normal [facility] Comment on above: Performed By: #### B LDCX1 #### [facility] [address] [place] [address] Dr. Kayley Hatfield MYELOCYTE % Normal [facility] Comment on above: Performed By: #### B LDCX1 #### [facility] [address] [place] [address] Dr. Kayley Hatfield NRBC Normal [facility] Comment on above: Performed By: #### B LDCX1 #### [facility] [address] [place] [address] Dr. Kayley Hatfield PLT 243 103/ul Normal 150-450 [facility] Comment on above: Performed By: #### B LDCX1 #### [facility] [address] [address] [address] Kayley Hatfield RBC 4.26 106/ul Normal 4.20-5.40 [facility] Comment on above: Performed By: #### B LDCX1 #### [facility] [address] [address] [address] Kayley Hatfield RDW 27.1 % Critically high 11.0-15.0 [facility] Comment on above: Performed By: #### B LDCX1 #### [facility] [address] [address] [address] Kayley Hatfield SEG # 13.36 103/ul Critically high 1.40-6.50 [facility] Comment on above: Performed By: #### B LDCX1 #### [facility] [address] [address] [address] Kayley Hatfield SEG % 83.0 % Critically high 43.0-75.0 [facility] Comment on above: Performed By: #### B LDCX1 #### [facility] [address] [address] [address] Kayley Hatfield WBC 16.1 103/ul Critically high 4.0-11.0 [facility] Comment on above: Performed By: #### B LDCX1 #### [facility] [address] [address] [address] CHEST WO CONon 03-07-2022 CT CHEST WO CON EXAMINATION: CT CHES T WO CON HISTORY: Right pneumothorax COMPARISON: 06/06/2016 TECHNIQUE: Multi-planar CT images were created with IV contrast. Axial, Coronal, and Sagittal images. Dose reduction techniques were achieved by using automated exposure control and/or adjustment of mA and/or kV according to patient size and/or use of iterative reconstruction technique. FINDINGS: LUNGS: Moderate right pneumothorax measuring up to 2.6 cm at the apex. Anterior small bore right chest tube with the tip along the anterior right midlung. Severe bilateral paraseptal and centrilobular emphysema. Peribronchial thickening. Area of soft tissue attenuation in the right apex measuring 4.7 x 1.0 cm axial image 33 stable from 2016 consistent with chronic scarring. Partial consolidation of the right lower lobe likely atelectasis no new pulmonary nodule or mass. Suture line in the left upper lobe. PLEURA: 5 mm right pleural effusion VASCULATURE: No abnormality. ROBLES: No mass or adenopathy. MEDIASTINUM: No mass or adenopathy. CARDIAC: No enlargement or pericardial effusion. Heavy coronary atherosclerosis with stents AORTA: No aortic aneurysm. Atherosclerosis. CHEST WALL: No mass or axillary adenopathy. BONES: No bone lesion or fracture. LIMITED ABDOMEN: No suspicious findings. Limited images of the upper abdomen. OTHER: Negative. IMPRESSION: Moderate right pneumothorax with chest tube Severe emphysema and areas of parenchymal scarring with no new significant nodule or mass Electronically authenticated by: ASAEL MALDONADO Date: 2022-03-07 09:42 Normal [facility] HEMOGLOBIN AND HEMATOCRITon 03-07-2022 Hematocrit (Bld) [Volume fraction] 31.8 % Critically low 36.0-48.0 [facility] Comment on above: Performed By: #### H GBHCT #### [facility] [address] [address] [address] Kayley Hatfield Hemoglobin (Bld) [Mass/Vol] 9.5 g/dL Critically low 12.0-16.0 [facility] Comment on above: Performed By: #### H GBHCT #### [facility] [address] [address] [address] Kayley Hatfield RETICULOCYTEon 03-07-2022 RETIC 1.92 % Normal 0.60-3.10 [facility] Comment on above: Performed By: #### O BSCRN #### [facility] [address] [address] [address] Kayley Hatfield XR CHEST 1 Von 03-07-2022 XR CHEST 1 V EXAM: XR CHEST 1 V HISTORY: SHORTNESS OF BREATH COMPARISON: 03/07/2022 at 4:44 AM TECHNIQUE: AP portable erect FINDINGS: LUNGS: Interval removal of smallbore chest tube with placement of a large-bore right lateral chest tube, the tip projects over the superior right hilum. There is been reexpansion of the right lung. Suture line in the left apex. Underlying hyperinflation. VASCULATURE: No increased pulmonary vasculature. PLEURA: No pneumothorax, effusion, or pleural thickening. CARDIAC: No cardiomegaly or cardiac silhouette abnormality. MEDIASTINUM: No visible mass or adenopathy. BONES: No fracture or visible bone lesion. OTHER: Right lateral subcutaneous emphysema IMPRESSION: Placement of a large-bore right chest tube with reexpansion of the right lung. No residual pneumothorax is identified Electronically authenticated by: ASAEL MALDONADO Date: 2022-03-07 12:54 Normal [facility] XR CHEST 1 V EXAM: XR CHEST 1 V HISTORY: Right pneumothorax COMPARISON: 03/06/2022 TECHNIQUE: AP portable erect . FINDINGS: LUNGS: 2.8 cm right apical pneumothorax. Suture lines left apex. Small bore right chest tube VASCULATURE: No increased pulmonary vasculature. PLEURA: No pneumothorax, effusion, or pleural thickening. CARDIAC: No cardiomegaly or cardiac silhouette abnormality. MEDIASTINUM: Stable right hilar density BONES: No fracture or visible bone lesion. OTHER: Negative. IMPRESSION: 2.8 cm right apical pneumothorax Electronically authenticated by: ASAEL MALDONADO Date: 2022-03-07 07:10 Normal [facility] BNPon 03-06-2022 Natriuretic peptide B (Bld) [Mass/Vol] 441.0 pg/mL Normal <=900.0 [facility] Comment on above: Performed By: #### H GBHCT #### [facility] [address] [address] [address] Kayley Hatfield CBC AUTO DIFFon 03-06-2022 BASO # 0.1 103/ul Normal 0.0-0.1 [facility] Comment on above: Performed By: #### O BSCRN #### [facility] [address] [address] [address] Kayley Hatfield Basophils/100 WBC (Bld) 0.7 % Normal 0.2-2.0 [facility] Comment on above: Performed By: #### O BSCRN #### [facility] [address] [address] [address] Kayley Hatfield EO # 0.1 103/ul Normal 0.0-0.7 [facility] Comment on above: Performed By: #### O BSCRN #### [facility] [address] [address] [address] Kayley Hatfield Eosinophils/100 WBC (Bld) 0.7 % Critically low 0.9-7.0 [facility] Comment on above: Performed By: #### O BSCRN #### [facility] [address] [place] [address] Dr. Kayley Hatfield Erythrocyte distribution width (RBC) [Ratio] 20.0 % Critically high 11.0-15.0 [facility] Comment on above: Performed By: #### O BSCRN #### [facility] [address] [place] [address] Dr. Kayley Hatfield Hematocrit (Bld) [Volume fraction] 20.1 % Critically low 36.0-48.0 [facility] Comment on above: Performed By: #### O BSCRN #### [facility] [address] [place] [address] Dr. Kayley Hatfield Hemoglobin (Bld) [Mass/Vol] 4.9 g/dL Critically low 12.0-16.0 [facility] Comment on above: Performed By: #### O BSCRN #### [facility] [address] [place] [address] Dr. Kayley Hatfield IG # 0.12 10e3/ul Critically high 0.00-0.03 [facility] Comment on above: Performed By: #### O BSCRN #### [facility] [address] [place] [address] Dr. Kayley Hatfield IG % 0.8 % Critically high 0.0-0.5 [facility] Comment on above: Performed By: #### O BSCRN #### [facility] [address] [place] [address] Dr. Kayley Hatfield LYMPH # 1.0 103/ul Critically low 1.2-3.8 [facility] Comment on above: Performed By: #### O BSCRN #### [facility] [address] [place] [address] Dr. Kayley Hatfield Lymphocytes/100 WBC (Bld) 6.5 % Critically low 20.5-60.0 [facility] Comment on above: Performed By: #### O BSCRN #### [facility] [address] [place] [address] Dr. Kayley Hatfield MANUAL DIFF REQ NO Normal [facility] Comment on above: Performed By: #### O BSCRN #### [facility] [address] [place] [address] Dr. Kayley Hatfield MCH (RBC) [Entitic mass] 15.2 pg Critically low 26.7-34.0 [facility] Comment on above: Performed By: #### O BSCRN #### [facility] [address] [place] [address] Dr. Kayley Hatfield MCHC (RBC) [Mass/Vol] 24.4 g/dL Critically low 29.9-35.2 [facility] Comment on above: Performed By: #### O BSCRN #### [facility] [address] [place] [address] Dr. Kayley Hatfield MCV (RBC) [Entitic vol] 62.2 fL Critically low 81.0-99.0 [facility] Comment on above: Performed By: #### O BSCRN #### [facility] [address] [place] [address] Dr. Kayley Hatfield MONO # 0.5 103/ul Normal 0.3-0.8 [facility] Comment on above: Performed By: #### O BSCRN #### [facility] [address] [place] [address] Dr. Kayley Hatfield Monocytes/100 WBC (Bld) 3.5 % Normal 1.7-12.0 [facility] Comment on above: Performed By: #### O BSCRN #### [facility] [address] [place] [address] Dr. Kayley Hatfield NEUT # 13.2 103/ul Critically high 1.4-6.5 [facility] Comment on above: Performed By: #### O BSCRN #### [facility] [address] [place] [address] Dr. Kayley Hatfield Neutrophils/100 WBC (Bld) 87.8 % Critically high 43.0-75.0 [facility] Comment on above: Performed By: #### O BSCRN #### [facility] [address] [place] [address] Dr. Kayley Hatfield Platelet mean volume (Bld) [Entitic vol] 9.1 fL Critically low 9.5-13.5 [facility] Comment on above: Performed By: #### O BSCRN #### [facility] [address] [place] [address] Dr. Kayley Hatfield PLT 384 103/ul Normal 150-450 [facility] Comment on above: Performed By: #### O BSCRN #### [facility] [address] [place] [address] Dr. Kayley Hatfield RBC 3.23 106/ul Critically low 4.20-5.40 [facility] Comment on above: Performed By: #### O BSCRN #### [facility] [address] [place] [address] Dr. Kayley Hatfield WBC 15.1 103/ul Critically high 4.0-11.0 [facility] Comment on above: Performed By: #### O BSCRN #### [facility] [address] [place] [address] Dr. Kayley Hatfield CULTURE BLOODon 03-06-2022 Microscopic examination of blood, culture Culture Observations: NO GROWTH AT 5 DAYS. Normal [facility] Comment on above: Performed By: #### C VDTBH #### [facility] [address] [place] [address] Dr. Kayley Hatfield Performed By: #### B [id number] #### [facility] [address] [place] [address] Dr. Kayley Hatfield Covid-19 PCR (CVDTB)on 02-07 SARS-CoV-2 (COVID-19) RNA ELBA+probe Ql (Unsp spec) Not detected Normal NOT DETECTED [facility] Comment on above: Result Comment: When diagnostic testing is negative, the possibility of a false negative should be considered in the context of a patient's recent exposures and the presence of clinical signs and symptoms consistent with SARS-CoV-2. This test is not yet approved or cleared by the [place] FDA. When there are no FDA-approved or cleared tests available, and other criteria are met, FDA can make tests available under an emergency access mechanism called an Emergency Use Authorization (EUA). The EUA for this test is supported by the [employer] of Health and Human Service's declaration that circumstances exist to justify the emergency use of in vitro diagnostics for the detection and/or diagnosis of the virus that causes COVID-19. This EUA will remain in effect for the duration of the COVID-19 declaration justifying emergency of IVDs, unless it is terminated or revoked by the FDA (after which the test may no longer be used). Performed By: #### C VDTBH #### [facility] [address] [place] [address] Dr. Kayley Hatfield ER URINE PROFILEon 2 Bilirubin Ql (U) Negative Normal NEGATIVE [facility] Comment on above: Performed By: #### P RBC #### [facility] [address] [place] [address] Dr. Kayley Hatfield Clarity (U) CLEAR Normal CLEAR [facility] Comment on above: Performed By: #### P RBC #### [facility] [address] [place] [address] Dr. Kayley Hatfield Color (U) LT. YELLOW Normal YELLOW [facility] Comment on above: Performed By: #### P RBC #### [facility] [address] [place] [address] Dr. Kayley Hatfield ERUHUGHD A micrscopic examination will be performed if indicated. Normal [facility] Comment on above: Performed By: #### P RBC #### [facility] [address] [place] [address] Dr. Kayley Hatfield Glucose Ql (U) Negative Normal NEGATIVE [facility] Comment on above: Performed By: #### P RBC #### [facility] [address] [place] [address] Dr. Kayley Hatfield Hemoglobin Ql (U) Negative Normal NEGATIVE [facility] Comment on above: Performed By: #### P RBC #### [facility] [address] [place] [address] Dr. Kayley Hatfield Ketones Ql (U) Negative Normal NEGATIVE [facility] Comment on above: Performed By: #### P RBC #### [facility] [address] [place] [address] Dr. Kayley Hatfield LEUKOCYTES Negative Normal NEGATIVE [facility] Comment on above: Performed By: #### P RBC #### [facility] [address] [place] [address] Dr. Kayley Hatfield Nitrite Ql (U) Negative Normal NEGATIVE [facility] Comment on above: Performed By: #### P RBC #### [facility] [address] [place] [address] Dr. Kayley Hatfield pH (U) 6.0 [pH] Normal 5-9 [facility] Comment on above: Performed By: #### P RBC #### [facility] [address] [place] [address] Dr. Kayley Hatfield SPEC GRAVITY 1.010 Normal 1.005-<=1.025 [facility] Comment on above: Performed By: #### P RBC #### [facility] [address] [place] [address] Dr. Kayley Hatfield UA PROTEIN Negative Normal NEGATIVE/ TRACE [facility] Comment on above: Performed By: #### P RBC #### [facility] [address] [place] [address] Dr. Kayley Hatfield UR MICRO IND NOT INDICATED Normal [facility] Comment on above: Performed By: #### P RBC #### [facility] [address] [place] [address] Dr. Kayley Hatfield Urobilinogen Qn (U) 0.2 {Lu'U}/dL Normal 0.2 - 1. 0 [facility] Comment on above: Performed By: #### P RBC #### [facility] [address] [place] [address] Dr. Kayley Hatfield FERRITINon 03-06-2022 Ferritin [Mass/Vol] 4.0 ng/mL Critically low 8.0-252.0 [facility] Comment on above: Performed By: #### O BSCRN #### [facility] [address] [place] [address] Dr. Kayley Hatfield IRON AND TIBCon 03-06-2022 % SATURATION 2.3 % Normal [facility] Comment on above: Performed By: #### C VDTBH #### [facility] [address] [place] [address] Dr. Kayley Hatfield Iron [Mass/Vol] 12.0 ug/dL Critically low 50.0-170.0 [facility] Comment on above: Performed By: #### C VDTBH #### [facility] [address] [place] [address] Dr. Kayley Hatfield TIBC DIRECT 532.0 ug/dL Critically high 250.0-450.0 [facility] Comment on above: Performed By: #### C VDTBH #### [facility] [address] [place] [address] Dr. Kayley Hatfield OCC BLD IMMUNO SCREENon 02-07 OCCULT BLOOD Negative Normal NEGATIVE [facility] Comment on above: Performed By: #### O BSCRN #### [facility] [address] [place] [address] Dr. Kayley Hatfield PROF 14(COMP METB)on 022 Albumin [Mass/Vol] 3.6 g/dL Normal 3.4-5.0 [facility] Comment on above: Performed By: #### H GBHCT #### [facility] [address] [place] [address] Dr. Kayley Hatfield Albumin/Globulin [Mass ratio] 1.2 {ratio} Normal [facility] Comment on above: Performed By: #### H GBHCT #### [facility] [address] [place] [address] Dr. Kayley Hatfield ALP [Catalytic activity/Vol] 71 U/L Normal 46-116 [facility] Comment on above: Performed By: #### H GBHCT #### [facility] [address] [place] [address] Dr. Kayley Hatfield ALT [Catalytic activity/Vol] 20 U/L Normal 14-59 [facility] Comment on above: Performed By: #### H GBHCT #### [facility] [address] [address] [address] Kayley Hatfield Anion gap [Moles/Vol] 9.8 mmol/L Normal [facility] Comment on above: Performed By: #### H GBHCT #### [facility] [address] [address] [address] Kayley Hatfield AST [Catalytic activity/Vol] 12 U/L Critically low 15-37 [facility] Comment on above: Performed By: #### H GBHCT #### [facility] [address] [place] [address] Dr. Kayley Hatfield Bilirubin [Mass/Vol] 0.4 mg/dL Normal 0.2-1.0 [facility] Comment on above: Performed By: #### H GBHCT #### [facility] [address] [address] [address] Kayley Hatfield Calcium [Mass/Vol] 9.0 mg/dL Normal 8.5-10.1 [facility] Comment on above: Performed By: #### H GBHCT #### [facility] [address] [place] [address] Dr. Kayley Hatfield Chloride [Moles/Vol] 99 mmol/L Normal 98-107 [facility] Comment on above: Performed By: #### H GBHCT #### [facility] [address] [address] [address] Kayley Hatfield CO2 [Moles/Vol] 31.5 mmol/L Normal 21.0-32.0 [facility] Comment on above: Performed By: #### H GBHCT #### [facility] [address] [address] [address] Kayley Hatfield Creatinine [Mass/Vol] 0.89 mg/dL Normal 0.55-1.02 [facility] Comment on above: Performed By: #### H GBHCT #### [facility] [address] [address] [address] Kayley Hatfield EGFR-AF TURKS AND [place] ISLANDER >60 Normal >=60 [facility] Comment on above: Performed By: #### H GBHCT #### [facility] [address] [place] [address] Dr. Kayley Hatfield EGFR-NON AF TURKS AND [place] ISLANDER >60 Normal >=60 [facility] Comment on above: Performed By: #### H GBHCT #### [facility] [address] [address] [address] Kayley Hatfield Globulin (S) [Mass/Vol] 3.1 g/dL Normal [facility] Comment on above: Performed By: #### H GBHCT #### [facility] [address] [place] [address] Dr. Kayley Hatfield Glucose [Mass/Vol] 174 mg/dL Critically high 74-106 [facility] Comment on above: Performed By: #### H GBHCT #### [facility] [address] [place] [address] Dr. Kayley Hatfield Potassium [Moles/Vol] 4.3 mmol/L Normal 3.5-5.1 [facility] Comment on above: Performed By: #### H GBHCT #### [facility] [address] [place] [address] Dr. Kayley Hatfield Protein [Mass/Vol] 6.7 g/dL Normal 6.4-8.2 [facility] Comment on above: Performed By: #### H GBHCT #### [facility] [address] [address] [address] Kayley Hatfield Sodium [Moles/Vol] 136 mmol/L Normal 136-145 [facility] Comment on above: Performed By: #### H GBHCT #### [facility] [address] [place] [address] Dr. Kayley Hatfield Urea nitrogen [Mass/Vol] 17.0 mg/dL Normal 7.0-18.0 [facility] Comment on above: Performed By: #### H GBHCT #### [facility] [address] [place] [address] Dr. Kayley Hatfield Urea nitrogen/Creatinine [Mass ratio] 19.1 mg/mg Normal [facility] Comment on above: Performed By: #### H GBHCT #### [facility] [id number] Kayley Hatfield TROPONIN, HIGH SENSITIVITYon 03-06-2022 HSTROP 7.0 pg/mL Normal 4.0-51.3 [facility] Comment on above: Result Comment: CUT- OFF POINTS HAVE BEEN ESTABLISHED BASED ON THE FOURTH UNIVERSAL DEFINITIONS OF MYOCARDIAL INFARCTION. THE UPPER REFERENCE LIMIT (URL) OF TROPONIN, DEFINED THE 99TH PERCENTILE OF cTnI DISTRIBUTION IN A REFERENCE POPULATION, HAS BEEN CONFIRMED THE DECISION THRESHOLD FOR [place] DIAGNOSIS. Performed By: #### H GBHCT #### [facility] [address] [address] [address] Kayley Hatfield TYPE AND SCREENon 03-06-2022 TYPE AND SCREEN Negative Normal [facility] Comment on above: Performed By: #### C VDTB #### [facility] [address] [address] [address] Kayley Hatfield XR CHEST 1 Von 03-06-2022 XR CHEST 1 V EXAMINATION: XR CHES T 1 V HISTORY: SHORTNESS OF BREATH , right pneumothorax COMPARISON: XR chest 03/06/2022 1:53 PM FINDINGS: LUNGS: Right lung has reexpanded. Left lung is clear.. VASCULATURE: No increased pulmonary vasculature. PLEURA: Small caliber right chest tube. No pneumothorax or pleural effusion. CARDIAC: No cardiomegaly or cardiac silhouette abnormality. MEDIASTINUM: No visible mass or adenopathy. BONES: No fracture or visible bone lesion. OTHER: Negative. IMPRESSION: 1. Right chest tube with complete reexpansion of right lung. Electronically authenticated by: MIGUE REYNOSO Date: 2022-03-06 16:10 Normal [facility] XR CHEST 1 V EXAMINATION: XR CHES T 1 V HISTORY: SHORTNESS OF BREATH COMPARISON: No relevant comparison available. FINDINGS: LUNGS: Large right pneumothorax, 4.0 cm in thickness at the apex, and visible along the lateral wall. Hyperexpanded chest suggestive of COPD. VASCULATURE: No increased pulmonary vasculature. PLEURA: No pleural effusion. CARDIAC: No cardiomegaly or cardiac silhouette abnormality. MEDIASTINUM: No visible mass or adenopathy. BONES: No fracture or visible bone lesion. OTHER: Negative. IMPRESSION: 1. Large right pneumothorax approximately 40-50% of lung volume. Findings called to Danielle in the emergency department to be relayed to Dr. Mae. Electronically authenticated by: MIGUE REYNOSO Date: 2022-03-06 14:39 Normal [facility] XR DEXA BONE DENSITYon 12-22 XR DEXA BONE DENSITY EXAMINATION: XR DEX A BONE DENSITY, 12/22/2021 12:40 PM EDT HISTORY: Menopause present COMPARISON: DEXA bone densitometry 10/20/2011 TECHNIQUE: Dual-energy X-ray absorptiometry (DEXA) bone density study performed for the axial skeleton. FINDINGS: SPINE ANALYSIS: Average bone mineral density is 0.828 g/cm2. T-score (standard deviation relative to young adult mean): -2.9 . -10.8% change since prior study. HIP ANALYSIS: Lowest bone mineral density is within the right femoral trochanter, 0.422 g/cm2. T-score (standard deviation relative to young adult mean): -3.7 . -15.3% change since prior study. IMPRESSION: World [employer] Classification: Osteoporosis - High Fracture Risk Electronically authenticated by: MIGUE REYNOSO Date: 2021-12-22 17:05 Normal [facility] CARDIAC ABDIAZIZ ADMITon 022 CK [Catalytic activity/Vol] 21 U/L Critically low 26-192 [facility] Comment on above: Performed By: #### B [id number] #### [facility] [address] [address] [address] Kayley Hatfield CK.MB [Mass/Vol] 1.00 ng/mL Normal <=3.60 [facility] Comment on above: Performed By: #### B [id number] #### [facility] [address] [address] [address] Kayley Hatfield HSTROP 11.6 pg/mL Normal 4.0-51.3 [facility] Comment on above: Result Comment: CUT- OFF POINTS HAVE BEEN ESTABLISHED BASED ON THE FOURTH UNIVERSAL DEFINITIONS OF MYOCARDIAL INFARCTION. THE UPPER REFERENCE LIMIT (URL) OF TROPONIN, DEFINED THE 99TH PERCENTILE OF cTnI DISTRIBUTION IN A REFERENCE POPULATION, HAS BEEN CONFIRMED THE DECISION THRESHOLD FOR [place] DIAGNOSIS. Performed By: #### B [id number] #### [facility] [address] [place] [address] Dr. Kayley Hatfield ROD 48 ng/mL Normal 9-82 [facility] Comment on above: Performed By: #### B [id number] #### [facility] [address] [place] [address] Dr. Kayley Hatfield CBC AUTO DIFFon 12-14-2021 BASO # 0.1 103/ul Normal 0.0-0.1 [facility] Comment on above: Performed By: #### P RBC #### [facility] [address] [place] [address] Dr. Kayley Hatfield Basophils/100 WBC (Bld) 0.9 % Normal 0.2-2.0 [facility] Comment on above: Performed By: #### P RBC #### [facility] [address] [place] [address] Dr. Kayley Hatfield EO # 0.1 103/ul Normal 0.0-0.7 [facility] Comment on above: Performed By: #### P RBC #### [facility] [address] [place] [address] Dr. Kayley Hatfield Eosinophils/100 WBC (Bld) 0.5 % Critically low 0.9-7.0 [facility] Comment on above: Performed By: #### P RBC #### [facility] [address] [place] [address] Dr. Kayley Hatfield Erythrocyte distribution width (RBC) [Ratio] 15.4 % Critically high 11.0-15.0 [facility] Comment on above: Performed By: #### P RBC #### [facility] [address] [place] [address] Dr. Kayley Hatfield Hematocrit (Bld) [Volume fraction] 29.3 % Critically low 36.0-48.0 [facility] Comment on above: Performed By: #### P RBC #### [facility] [address] [place] [address] Dr. Kayley Hatfield Hemoglobin (Bld) [Mass/Vol] 8.3 g/dL Critically low 12.0-16.0 [facility] Comment on above: Performed By: #### P RBC #### [facility] [address] [address] [address] Kayley Hatfield IG # 0.05 10e3/ul Critically high 0.00-0.03 [facility] Comment on above: Performed By: #### P RBC #### [facility] [address] [address] [address] Kayley Hatfield IG % 0.4 % Normal 0.0-0.5 [facility] Comment on above: Performed By: #### P RBC #### [facility] [address] [place] [address] Dr. Kayley Hatfield LYMPH # 1.2 103/ul Normal 1.2-3.8 [facility] Comment on above: Performed By: #### P RBC #### [facility] [address] [place] [address] Dr. Kayley Hatfield Lymphocytes/100 WBC (Bld) 10.6 % Critically low 20.5-60.0 [facility] Comment on above: Performed By: #### P RBC #### [facility] [address] [place] [address] Dr. Kayley Hatfield MANUAL DIFF REQ NO Normal [facility] Comment on above: Performed By: #### P RBC #### [facility] [address] [address] [address] Kayley Hatfield MCH (RBC) [Entitic mass] 21.4 pg Critically low 26.7-34.0 [facility] Comment on above: Performed By: #### P RBC #### [facility] [address] [address] [address] Kayley Hatfield MCHC (RBC) [Mass/Vol] 28.3 g/dL Critically low 29.9-35.2 [facility] Comment on above: Performed By: #### P RBC #### [facility] [address] [place] [address] Dr. Kayley Htafield MCV (RBC) [Entitic vol] 75.5 fL Critically low 81.0-99.0 [facility] Comment on above: Performed By: #### P RBC #### [facility] [address] [address] [address] Kayley Hatfield MONO # 0.9 103/ul Critically high 0.3-0.8 [facility] Comment on above: Performed By: #### P RBC #### [facility] [address] [address] [address] Kayley Hatfield Monocytes/100 WBC (Bld) 7.6 % Normal 1.7-12.0 [facility] Comment on above: Performed By: #### P RBC #### [facility] [address] [address] [address] Kayley Hatfield NEUT # 9.2 103/ul Critically high 1.4-6.5 [facility] Comment on above: Performed By: #### P RBC #### [facility] [address] [place] [address] Dr. Kayley Hatfield Neutrophils/100 WBC (Bld) 80.0 % Critically high 43.0-75.0 [facility] Comment on above: Performed By: #### P RBC #### [facility] Laboratory [address] [place] [address] Dr. Kayley Hatfield Platelet mean volume (Bld) [Entitic vol] 9.3 fL Critically low 9.5-13.5 [facility] Comment on above: Performed By: #### P RBC #### [facility] [address] [place] [address] Dr. Kayley Hatfield PLT 498 103/ul Critically high 150-450 [facility] Comment on above: Performed By: #### P RBC #### [facility] [address] [address] [address] Kayley Hatfield RBC 3.88 106/ul Critically low 4.20-5.40 [facility] Comment on above: Performed By: #### P RBC #### [facility] [address] [address] [address] Kayley Hatfield WBC 11.5 103/ul Critically high 4.0-11.0 [facility] Comment on above: Performed By: #### P RBC #### [facility] [address] [address] [address] Kayley Hatfield ER URINE PROFILEon 2 Bilirubin Ql (U) Negative Normal NEGATIVE [facility] Comment on above: Performed By: #### H GBHCT #### [facility] [address] [address] [address] Kayley Hatfield Clarity (U) CLEAR Normal CLEAR [facility] Comment on above: Performed By: #### H GBHCT #### [facility] [address] [address] [address] Kayley Hatfield Color (U) LT. YELLOW Normal YELLOW [facility] Comment on above: Performed By: #### H GBHCT #### [facility] [address] [place] [address] Dr. Kayley [place] A micrscopic examination will be performed if indicated. Normal [facility] Comment on above: Performed By: #### H GBHCT #### [facility] [address] [address] [address] Kayley Hatfield Glucose Ql (U) Negative Normal NEGATIVE [facility] Comment on above: Performed By: #### H GBHCT #### [facility] [address] [address] [address] Kayley Hatfield Hemoglobin Ql (U) TRACE-INTACT Abnormal NEGATIVE [facility] Comment on above: Performed By: #### H GBHCT #### [facility] [address] [address] [address] Kayley Hatfield Ketones Ql (U) Negative Normal NEGATIVE [facility] Comment on above: Performed By: #### H GBHCT #### [facility] [address] [place] [address] Dr. Kayley Hatfield LEUKOCYTES Negative Normal NEGATIVE [facility] Comment on above: Performed By: #### H GBHCT #### [facility] [address] [address] [address] Kayley Hatfield Nitrite Ql (U) Negative Normal NEGATIVE [facility] Comment on above: Performed By: #### H GBHCT #### [facility] [address] [address] [address] Kayley Hatfield pH (U) 6.5 [pH] Normal 5-9 [facility] Comment on above: Performed By: #### H GBHCT #### [facility] [address] [place] [address] Dr. Kayley Hatfield SPEC GRAVITY 1.015 Normal 1.005-<=1.025 [facility] Comment on above: Performed By: #### H GBHCT #### [facility] [address] [place] [address] Dr. Kayley Hatfield UA PROTEIN Negative Normal NEGATIVE/ TRACE [facility] Comment on above: Performed By: #### H GBHCT #### [facility] [address] [place] [address] Dr. Kayley Hatfield UR MICRO IND INDICATED Normal [facility] Comment on above: Performed By: #### H GBHCT #### [facility] [address] [place] [address] Dr. Kayley Hatfield Urobilinogen Qn (U) 0.2 {Lu'U}/dL Normal 0.2 - 1. 0 [facility] Comment on above: Performed By: #### H GBHCT #### [facility] [address] [place] [address] Dr. Kayley Hatfield PROF 14(COMP METB)on 022 Albumin [Mass/Vol] 3.2 g/dL Critically low 3.4-5.0 [facility] Comment on above: Performed By: #### B LDCX1 #### [facility] [address] [place] [address] Dr. Kayley Hatfield Albumin/Globulin [Mass ratio] 0.8 {ratio} Normal [facility] Comment on above: Performed By: #### B LDCX1 #### [facility] [address] [place] [address] Dr. Kayley Hatfield ALP [Catalytic activity/Vol] 72 U/L Normal 46-116 [facility] Comment on above: Performed By: #### B LDCX1 #### [facility] [address] [address] [address] Kayley Hatfield ALT [Catalytic activity/Vol] 24 U/L Normal 14-59 [facility] Comment on above: Performed By: #### B LDCX1 #### [facility] [address] [place] [address] Dr. Kayley Hatfield Anion gap [Moles/Vol] 13.0 mmol/L Normal [facility] Comment on above: Performed By: #### B LDCX1 #### [facility] [address] [place] [address] Dr. Kayley Hatfield AST [Catalytic activity/Vol] 18 U/L Normal 15-37 [facility] Comment on above: Performed By: #### B LDCX1 #### [facility] [address] [place] [address] Dr. Kayley Hatfield Bilirubin [Mass/Vol] 0.3 mg/dL Normal 0.2-1.0 [facility] Comment on above: Performed By: #### B LDCX1 #### [facility] [address] [place] [address] Dr. Kayley Hatfield Calcium [Mass/Vol] 9.9 mg/dL Normal 8.5-10.1 [facility] Comment on above: Performed By: #### B LDCX1 #### [facility] [address] [place] [address] Dr. Kayley Hatfield Chloride [Moles/Vol] 98 mmol/L Normal 98-107 [facility] Comment on above: Performed By: #### B LDCX1 #### [facility] [address] [place] [address] Dr. Kayley Hatfield CO2 [Moles/Vol] 29.8 mmol/L Normal 21.0-32.0 [facility] Comment on above: Performed By: #### B LDCX1 #### [facility] [address] [place] [address] Dr. Kayley Hatfield Creatinine [Mass/Vol] 1.23 mg/dL Critically high 0.55-1.02 [facility] Comment on above: Performed By: #### B LDCX1 #### [facility] [address] [address] [address] Kayley Hatfield EGFR-AF TURKS AND CAICOS ISLANDER 53 mL/min/1.73m2 Critically low >=60 [facility] Comment on above: Performed By: #### B LDCX1 #### [facility] [address] [address] [address] Kayley Hatfield EGFR-NON AF TURKS AND CAICOS ISLANDER 44 mL/min/1.73m2 Critically low >=60 [facility] Comment on above: Performed By: #### B LDCX1 #### [facility] [address] [address] [address] Kayley Hatfield Globulin (S) [Mass/Vol] 3.9 g/dL Normal [facility] Comment on above: Performed By: #### B LDCX1 #### [facility] [address] [address] [address] Kayley Hatfield Glucose [Mass/Vol] 160 mg/dL Critically high 74-106 [facility] Comment on above: Performed By: #### B LDCX1 #### [facility] [address] [address] [address] Kayley Hatfield Potassium [Moles/Vol] 3.8 mmol/L Normal 3.5-5.1 [facility] Comment on above: Performed By: #### B LDCX1 #### [facility] [address] [address] [address] Kayley Hatfield Protein [Mass/Vol] 7.1 g/dL Normal 6.4-8.2 [facility] Comment on above: Performed By: #### B LDCX1 #### [facility] [address] [address] [address] Kayley Hatfield Sodium [Moles/Vol] 137 mmol/L Normal 136-145 [facility] Comment on above: Performed By: #### B LDCX1 #### [facility] [address] [address] [address] Kayley Hatfield Urea nitrogen [Mass/Vol] 20.0 mg/dL Critically high 7.0-18.0 [facility] Comment on above: Performed By: #### B LDCX1 #### [facility] [address] [place] [address] Dr. Kayley Hatfield Urea nitrogen/Creatinine [Mass ratio] 16.3 mg/mg Normal [facility] Comment on above: Performed By: #### B LDCX1 #### [facility] [address] [place] [address] Dr. Kayley Hatfield TROPONIN, HIGH SENSITIVITYon 12-14-2021 HSTROP 11.3 pg/mL Normal 4.0-51.3 [facility] Comment on above: Result Comment: CUT- OFF POINTS HAVE BEEN ESTABLISHED BASED ON THE FOURTH UNIVERSAL DEFINITIONS OF MYOCARDIAL INFARCTION. THE UPPER REFERENCE LIMIT (URL) OF TROPONIN, DEFINED THE 99TH PERCENTILE OF cTnI DISTRIBUTION IN A REFERENCE POPULATION, HAS BEEN CONFIRMED THE DECISION THRESHOLD FOR [place] DIAGNOSIS. Performed By: #### P RTELEC #### [facility] [address] [place] [address] Dr. Kayley Hatfield URINE MICROSCOPIC ONLYon BACTERIA NONE SEEN Normal NONE SEEN [facility] Comment on above: Performed By: #### H GBHCT #### [facility] [address] [place] [address] Dr. Kayley Hatfield Bacteria identified Cx Nom (U) NOT INDICATED Normal [facility] Comment on above: Performed By: #### H GBHCT #### [facility] [address] [place] [address] Dr. Kayley Hatfield CAST SEEN Abnormal NONE SEEN [facility] Comment on above: Performed By: #### H GBHCT #### [facility] [address] [place] [address] Dr. Kayley Hatfield Crystals LM Nom (Urine sed) NONE SEEN Normal NONE SEEN [facility] Comment on above: Performed By: #### H GBHCT #### [facility] [address] [place] [address] Dr. Kayley Hatfield Epithelial cells LM Ql (Urine sed) FEW Abnormal NONE SEEN /RARE [facility] Comment on above: Performed By: #### H GBHCT #### [facility] [address] [place] [address] Dr. Kayley Hatfield HYALINE CAST RARE Normal [facility] Comment on above: Performed By: #### H GBHCT #### [facility] [address] [address] [address] Kayley Hatfield MUCOUS NONE SEEN Normal NONE SEEN [facility] Comment on above: Performed By: #### H GBHCT #### [facility] [address] [place] [address] Dr. Kayley Hatfield RBC 0-2 Normal 0-2 [facility] Comment on above: Performed By: #### H GBHCT #### [facility] [address] [place] [address] Dr. Kayley Hatfield WBC 0-2 Abnormal NONE SEEN [facility] Comment on above: Performed By: #### H GBHCT #### [facility] [address] [place] [address] Dr. Kayley Hatfield XR CHEST 1 Von 12-14-2021 XR CHEST 1 V EXAMINATION: XR CHES T 1 V HISTORY: SHORTNESS OF BREATH , weakness, hypotension COMPARISON: 02/16/2021 TECHNIQUE: AP portable erect FINDINGS: LUNGS: Stable hyperinflation. Suture lines in the left apex. No new focal parenchymal infiltrate VASCULATURE: No increased pulmonary vasculature. PLEURA: No pneumothorax, effusion, or pleural thickening. CARDIAC: No cardiomegaly or cardiac silhouette abnormality. MEDIASTINUM: No visible mass or adenopathy. BONES: No fracture or visible bone lesion. OTHER: Negative. IMPRESSION: Stable hyperinflation, clear lungs Electronically authenticated by: ASAEL MALDONADO Date: 2021-12-14 13:43 Normal [facility] BUNon 12-12-2021 Urea nitrogen [Mass/Vol] 15.0 mg/dL Normal 7.0-18.0 [facility] Comment on above: Performed By: #### P RBC #### [facility] [address] [place] [address] Dr. Kayley Hatfield CALCIUMon 12-12-2021 Calcium [Mass/Vol] 9.1 mg/dL Normal 8.5-10.1 [facility] Comment on above: Performed By: #### C VDTBH #### [facility] [address] [place] [address] Dr. Kayley Hatfield CREATININEon 12-12-2021 Creatinine [Mass/Vol] 1.05 mg/dL Critically high 0.55-1.02 [facility] Comment on above: Performed By: #### P RBC #### [facility] [address] [place] [address] Dr. Kayley Hatfield EGFR-AF TURKS AND CAICOS ISLANDER >60 Normal >=60 [facility] Comment on above: Performed By: #### P RBC #### [facility] [address] [place] [address] Dr. Kayley Hatfield EGFR-NON AF TURKS AND CAIC[place] ISLANDER 53 mL/min/1.73m2 Critically low >=60 [facility] Comment on above: Performed By: #### P RBC #### [facility] [address] [place] [address] Dr. Kayley Hatfield CRPon 12-12-2021 CRP [Mass/Vol] mg/L Normal <=1.0 [facility] Comment on above: Performed By: #### P RBC #### [facility] [address] [place] [address] Dr. Kayley Hatfield MAGNESIUMon 12-12-2021 Magnesium [Mass/Vol] 1.9 mg/dL Normal 1.8-2.4 [facility] Comment on above: Performed By: #### C VDTBH #### [facility] [address] [place] [address] Dr. Kayley Hatfield PHOSPHORUSon 12-12-2021 Phosphate [Mass/Vol] 4.1 mg/dL Normal 2.6-4.7 [facility] Comment on above: Performed By: #### C VDTBH #### [facility] [address] [place] [address] Dr. Kayley Hatfield SED RATE ONEIDAERGRENon 2021 SED RATE 35 mm/hr Critically high <=30 [facility] Comment on above: Performed By: #### P RTELEC #### [facility] [address] [place] [address] Dr. Kayley Hatfield Vital Signs Date Time Vital Sign Value Performing Clinician Faci litfahad 06-26-2023 15:27-0500 Diastolic blood pressure 103 mm[Hg] MD Erasto Burroughs Work Phone: [facility] 06-26-2023 15:27-0500 Heart rate 81 /min MD Erasto Burroughs Work Phone: [facility] 06-26-2023 15:27-0500 Respiratory rate 18 /min MD Erasto Burroughs Work Phone: [facility] 06-26-2023 15:27-0500 SaO2% (BldA) [Mass fraction] 95 % MD Erasto Burroughs Work Phone: [facility] 06-26-2023 15:27-0500 Systolic blood pressure 162 mm[Hg] MD Erasto Burroughs Work Phone: [facility] 06-26-2023 13:44-0500 Body height 162.56 cm MD Erasto Burroughs Work Phone: [facility] 06-26-2023 13:44-0500 Body weight 59.87 kg MD Erasto Burroughs Work Phone: [facility] 06-26-2023 13:44-0500 Inhaled oxygen flow rate 2 L/min MD Erasto Burroughs Work Phone: [facility] Encounters Encounter Date Encounter Type Care Provider Facility Start: 08-17-2023 ambulatory Ihsan Smiley ty:[facility] Start: [facility]-27-2023 [facility] Start: 06-26-2023 End: 06-26-2023 ambulatory Remy Givens Facility:[facility] Start: 06-26-2023 End: 06-26-2023 Admission to same day surgery center MD Erasto Burroughs Work Phone: [facility] Work Phone: Start: 06-26-2023 End: 06-26-2023 ambulatory MD Erasto Burroughs Work Phone: [facility] Work Phone: Start: 06-14-2023 End: 06-14-2023 ambulatory SHAIKH HUMA Not Available Start: 06-05-2023 Evaluation and management of inpatient KONG BEAULIEU [facility] Start: 06-05-2023 [facility] Start: 06-05-2023 Evaluation and management of inpatient BONITA [facility] Start: 06-05-2023 End: 06-06-2023 Evaluation and management of inpatient AVINASH SERRANO [facility] Start: 05-15-2023 ambulatory [facility] Start: 04-16-2023 End: 04-17-2023 ambulatory Ihsan BROWN Facility:[facility] Start: 10-31-2022 End: 11-01-[address] ERASTO BURROUGHS Facility:[facility] Start: 10-10-2022 End: 10-11-[address] ERASTO BURROUGHS Facility:[facility] Start: 10-10-2022 End: 10-11-2022 ambulatory Ihsan BROWN Facility:[facility] Start: 08-14-2022 ambulatory JER JARRODRAMOSMAURICIO [facility] Start: 05-01-2022 End: 05-02-[address] ERASTO BURROUGHS Facility: Start: 05-01-[address] ERASTO BURROUGHS Facil ity:[facility] Start: 04-25-2022 End: 04-26-[address] ERASTO BURROUGHS Facility:[facility] Start: 04-04-2022 Encounter for genera l adult medical examination without abnormal findings DR ERASTO BURROUGHS [facility] Start: 03-30-[address] ERASTO BURROUGHS Facil ity:[facility] Start: 03-29-2022 Encounter for genera l adult medical examination without abnormal findings DR ERASTO BURROUGHS [facility] Start: 03-28-2022 End: 03-30-2022 Evaluation and management of inpatient DR ERASTO BURROUGHS Facility:[facility] Start: 03-28-2022 End: 03-29-[address] ERASTO BURROUGHS Facility:[facility] Start: 03-28-2022 End: 03-29-2022 Encounter for general adult medical examination without abnormal findings DR ERASTO BURROUGHS Facility:[facility] Start: 03-08-2022 End: 03-15-2022 Evaluation and management of inpatient IMAN WILLIS Facility:[facility] Start: 03-06-2022 End: 03-08-2022 Evaluation and management of inpatient DR ERASTO BURROUGHS Facility:[facility] Start: 12-22-2021 End: 12-23-[address] ERASTO BURROUGHS Facility:[facility] Start: 12-14-2021 End: 12-14-[address] ERASTO BURROUGHS Facility:[facility] Start: 12-12-2021 End: 12-13-[address] ERASTO BURROUGHS Facility:[facility] Procedures Date Procedure Procedure Detail Performing Clinician Start: 06-26-2023 Esophagogastroduodenoscopy MD Erasto Jim er Work Phone: Start: 03-29-2022 Change Drainage Device in Right Pleural Cavity, External Approach DR ERASTO BURROUGHS Start: 03-28-2022 Drainage of Right Pleural Cavity with Drainage Device, Percutaneous Approach DR ERASTO BURROUGHS Start: 03-28-2022 Transfusion of Nonautologous Red Blood Cells into Peripheral Vein, Percutaneous Approach DR ERASTO BURROUGHS Start: 03-07-2022 Drainage of Right Pleural Cavity with Drainage Device, Open Approach DR ERASTO BURROUGHS Start: 03-06-2022 Drainage of Right Pleural Cavity with Drainage Device, Open Approach DR ERASTO BURROUGHS Start: 03-06-2022 Transfusion of Nonautologous Red Blood Cells into Peripheral Vein, Percutaneous Approach DR ERASTO BURROUGHS Plan of Treatment Date Care Activity Detail Author Start: 06-26-2023 [facility] Patient Education Esophageal Dilation [facility] Work Phone: Payers Date Payer Category Payer Medicare [id number] 2023 Self-pay [id number] 1957 Medicare [id number] 1959 Unknown [id number] 1959 Unknown [id number] 1957 Unknown [id number] 2.16.8 40.1.564339.3.579.2.647 1957 Unknown [id number] 2.16.84 0.1.051757.3.579.2.593 1957 Unknown [id number] 2.16.84 0.1.163268.3.579.2.593 1957 Unknown [id number] 2.16.84 0.1.987381.3.579.2.593 1957 Unknown [id number] .[id number] 0.1.423407.3.579.2.593 1957 Unknown [id number] 2.16.84 0.1.945224.3.579.2.593 1957 Unknown [id number] 2.16.84 0.1.738312.3.579.2.593 1957 Unknown [id number] 2.16.84 0.1.445589.3.579.2.593 1957 Unknown [id number] 2.16.84 0.1.554998.3.579.2.593 1957 Unknown [id number] 2.16.84 0.1.164776.3.579.2.593 1957 Unknown [id number] 2.16.84 0.1.287872.3.579.2.593 1957 Unknown [id number] 2.16.84 0.1.873865.3.579.2.593 1957 Unknown [id number] 2.16.84 0.1.045901.3.579.2.593 1957 Unknown [id number] 2.16.84 0.1.208509.3.579.2.593 1957 Unknown [id number] 2.16.8 40.1.956359.3.579.2.727 1957 Unknown [id number] 2.16.8 40.1.768378.3.579.2.727 1957 Unknown [id number] 2.16.8 40.1.871048.3.579.2.727 1957 Unknown [id number] 2.16.8 40.1.484368.3.579.2.727 1957 Unknown [id number] 2.16.840 .1.186601.3.579.2.1259 Unknown [id number] 2.16.8 40.1.264283.3.579.2.531 Social History Date Type Detail Facility Start: 06-26-2023 Tobacco smoking stat us NHIS Ex-smoker (finding) [facility] Start: 1955 Sex Assigned At Female [facility] Goals Date Patient Goal Desired Activity /State Clinical Notes 03-09-2022 to 06-27-2023 Note Date & Type Note Facility 06-27-2023 Note [facility] Cardiology - [facility] Subjective Lise Easton Covert is a 68 y.o. year old female patient being seen for follow up [facility] for NSTEMI. Denies chest pain, LE edema, and palpitations. Doing much better. Patient Active Problem List Diagnosis Abdominal pain Altered mental status Angina pectoris (CMS/HCC) Benign essential hypertension Candidiasis of mouth COPD (chronic obstructive pulmonary disease) (CMS/HCC) Congestive heart failure (CMS/HCC) Coronary atherosclerosis Diarrhea Dyslipidemia Dyspnea Electrocardiogram abnormal Gastroesophageal reflux disease History of psychiatric disorder Hyperlipidemia Loss of weight Other and unspecified noninfectious gastroenteritis and colitis(558.9) Other psoriasis Pneumothorax on left Giant cell arteritis with polymyalgia rheumatica (CMS/HCC) Headache Psoriatic arthropathy (CMS/HCC) Raynaud's disease Status post percutaneous transluminal coronary angioplasty Other pneumothorax Recurrent spontaneous pneumothorax Acute on chronic respiratory failure with hypoxia (CMS/HCC) Anemia, unspecified Community acquired pneumonia of right lower lobe of lung Age-related osteoporosis with current pathological fracture, vertebra(e), initial encounter for fracture (CMS/HCC) 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 She had stopped plavix in May of 2015. In 02/2020 she underwent stenting of the LAD ISR using DANNY. She did well with that. She was maintained on dual antiplatelet therapy with aspirin and Plavix. At most recent visit of 08/14/2022 and due to epistaxis I stopped the Plavix and continue the aspirin. Prior additional history: She was admitted to [facility] in 10/2017 with sudden onset symptoms of numbness in the left side of the body. CT scan was negative. Carotid u/s 10/19/2017 showed no significant stenosis. MRI of the brain was done and she saw a neurologist Dr Layne and they did not think that there was a stroke. She has advanced COPD and underwent right upper and lower lobe resection on 04/04/2022. She is followed by pulmonary. She has stopped smoking. On 06/04/2023 she was admitted to [facility] transferred from the [facility] due to pneumonia. In that setting she was found to have minimally elevated troponin. Her echocardiogram and EKG were nonrevealing. She was discharged on medical therapy. Today she reports that she has been doing good. She never had any significant chest pain at all. No symptoms of chest pain currently. Her breathing is at baseline. She continues to be on oxygen therapy. No leg edema. Review of Systems Cardiovascular: Positive for dyspnea on exertion. Respiratory: Positive for cough and shortness of breath. Musculoskeletal: Positive for back pain. All other systems reviewed and are negative. Objective Visit Vitals BP 136/78 (BP Location: Right arm, Patient Position: Sitting) Pulse 89 Ht 1.626 m (5' 4 ) Wt 59.9 kg (132 lb) LMP (LMP Unknown) SpO2 93% BMI 22.66 kg/m??? OB Status Postmenopausal Smoking Status Former BSA 1.64 m??? Physical Exam Constitutional: Appearance: She is well-developed. She is ill-appearing. HENT: Head: Normocephalic and atraumatic. Nose: Nose normal. Eyes: General: No scleral icterus. Pupils: Pupils are equal, round, and reactive to light. Neck: Thyroid: No thyromegaly. Vascular: No JVD. Cardiovascular: Rate and Rhythm: Normal rate and regular rhythm. Pulses: Radial pulses are 2+ on the right side and 2+ on the left side. Heart sounds: Normal heart sounds. No murmur heard. No friction rub. No gallop. Pulmonary: Effort: Pulmonary effort is normal. No respiratory distress. Breath sounds: Normal breath sounds. Decreased air movement (right lung filed) present. No wheezing or rales. Chest: Chest wall: No tenderness. Abdominal: General: Bowel sounds are normal. There is no distension. Palpations: Abdomen is soft. Tenderness: There is no abdominal tenderness. Musculoskeletal: General: No swelling. Cervical back: Neck supple. Comments: In wheelchair Skin: General: Skin is warm and dry. Neurological: General: No focal deficit present. Mental Status: She is alert and oriented to person, place, and time. Psychiatric: Mood and Affect: Mood normal. Behavior: Behavior is cooperative. Judgment: Judgment normal. All (more content not included)... [facility] 06-26-2023 Procedure note [facility] 06-06-2023 Note Hospital Medicine Discharge Summary Final Discharge Diagnosis: Community acquired pneumonia of right lower lobe of lung Admission Diagnosis: NSTEMI (non-ST elevated myocardial infarction) (CMS/[facility]) [I21.4] Hospital course: 68 years old female lady with a medical history of hypertension, hyperlipidemia, gastroesophageal reflux disease, carotid disease, fibromyalgia, arthritis, polymyalgia rheumatica, COPD, temporal arteritis, and psoriasis. Came into the [facility] ER as a transfer from [facility] for concern of chest pain and non-STEMI. There were concern of urinary tract infection with electrolyte abnormality including hypocalcemia she was complaining from dysuria and she had leukocytosis. Admitted the patient to the stepdown unit with full ACS protocol repeating EKG with telemetry and trending 3 sets of troponin and consulting cardiology for further recommendation initiating broad-spectrum antibiotic coverage including ceftriaxone and working her for ASCVD risk estimation with TTE ordered as well. # Sepsis due to RLL CAP, improved: - Discharged on cefdinir and doxycycline. # NSTEMI type 2: - No chest pain. - Trops went down. - No intervention was needed. # COPD on 2 liters oxygen. # Polymyalgia rheumatica on oral prednisone. # CAD s/p PCI: - Continue aspirin, Lipitor and Lopressor. # NIDDM, on oral agents. Dear Dr. Heike MD, Lise is advised to follow up with you within 1-2 weeks. Follow-up with: None Scheduled appointments: Future Appointments Date Time Provider Department Center 06/27/2023 3:45 PM Jer Neff MD [facility] Your medication list START taking these medications Instructions Last Dose Given Next Dose Due cefdinir 300 mg capsule Commonly known as: Omnicef Take 1 capsule (300 mg) by mouth in the morning and at bedtime for 5 days. doxycycline 100 mg capsule Commonly known as: Vibramycin Take 1 capsule (100 mg) by mouth in the morning and at bedtime for 5 days. Take with at least 8 ounces (large glass) of water, do not lie down for 30 minutes after CONTINUE taking these medications Instructions Last Dose Given Next Dose Due aspirin 81 mg EC tablet atorvastatin 40 mg tablet Commonly known as: Lipitor Take 1 tablet (40 mg) by mouth at bedtime. cholecalciferol 50 MCG (2000 UT) tablet Commonly known as: Vitamin D-[address] capsule Commonly known as: Cymbalta eszopiclone 3 mg tablet Commonly known as: Lunesta fluticasone furoate-vilanteroL 200-25 mcg/dose inhaler Commonly known as: Breo Ellipta Inhale 1 puff in the morning. glipiZIDE 5 mg tablet Commonly known as: Glucotrol HYDROcodone-acetaminophen 5-325 mg tablet Commonly known as: Carmen melatonin 5 mg tablet metoprolol tartrate 25 mg tablet Commonly known as: Lopressor Take 0.5 tablets (12.5 mg) by mouth in the morning and at bedtime for 183 doses[address] omeprazole [address] capsule Commonly known as: PriLOSEC potassium chloride CR 20 mEq ER tablet Commonly known as: K-Tab predniSONE 10 mg tablet Commonly known as: Deltasone pregabalin 100 mg capsule Commonly known as: Lyrica STOP taking these medications furosemide 40 mg tablet Commonly known as: Lasix Where to Get Your Medications These medications were sent to [id number] - [place], [place] - [address] [facility] [address] [id number] cefdinir 300 mg capsule doxycycline 100 mg capsule Lise is allergic to azithromycin and latex. [place]position[place] [facility] Condition: Stable Code Status: Prior Diagnostic Results Hematology: Results from last 7 days Lab Units 06/06/23 0547 06/05/23 0303 06/05/23 0302 WBC AUTO 10*3/uL 10.31 -- 17.28* HEMOGLOBIN g/dL 9.6* -- 11.6* HEMATOCRIT % 28.7* -- 35.8* MCV fL 84.4 -- 87.3 PLATELETS AUTO 10*3/uL 522* -- 517* INR -- 1.25* -- Chemistry: Results from last 7 days Lab Units 06/06/23 0547 06/05/23 0302 SODIUM mmol/L 130* 133* POTASSIUM mmol/L 3.9 3.3* CHLORIDE mmol/L 99 98 CO2 mmol/L 26 25 BUN mg/dL 12 12 CREATININE mg/dL 0.72 0.96 GLUCOSE mg/dL 107* 93 MAGNESIUM mg/dL 1.9 1.1* CALCIUM mg/dL 8.3* 8.9 PHOSPHORUS mg/dL -- 2.8 Results from last 7 days Lab Units 06/05/23 0302 AST U/L 14 ALT U/L <3* ALK PHOS U/L 83 BILIRUBIN TOTAL mg/dL 0.3 Test Results Pending At Discharge: Pending Labs Order Current Status Blood culture, peripheral #1 Preliminary result Blood culture, peripheral #2 Preliminary result Diet at the time of discharge: cardiac diet and diabetic diet Nutrition Screen Activity: Normal activity as tolerated Objective Blood pressure 142/78, pulse 78, temperature 36.8 ???C (98.2 ???F), temperature source Temporal, resp. rate 13, height 1.626 m (5' 4 ), weight 50.9 kg (112 lb 3.4 oz), SpO2 98 %. General: Alert and oriented x3. Cardiology: Normal rate, regular rhythm. Lungs: C (more content not included)... 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 Yes Who is your current PCP? Erasto Burroughs Can I schedule a follow up appointment for you at the time of discharge? Yes Do you understand why you are taking your current medications? Yes Are you taking your medications as prescribed? Yes Did patient provide teach back? Yes Would you like use our pharmacy [facility] to fill your new medications at the time of Discharge? Yes Does the patient have a case liner assigned to them through their insurance? Yes Living Arrangement (Current/Prior to Hospitalization) Private residence Does the patient have history of HHC or SNF? Yes (Patient states she is current with hhc but unsure of the company) Assistive Device Other (Comment) (Rollator) Patient's goal for discharge Plan is to discharge back home with Was patient reminded that goal for discharge is 11am? Yes Does the patient have transportation at discharge? Yes Type of Residence/Post Acute Needs Private residence;HHC Is PT/OT appropriate? No Is PT/OT ordered? No Is SW consult appropriate? Yes Is SW consult ordered? Yes Do you understand the benefits of MyChart? Yes Were you able to send link and activate MyChart? MyChart already active [facility] 06-05-2023 Note . Hospital Medicine History and Physical 06/05/2023 1:22 AM THE HOSPITALIST TEAM PREFERS TO USE [employer] FOR COMMUNICATION 7AM-7PM. IF I DO NOT RESPOND WITHIN 15 MINUTES, PLEASE PAGE ME/CALL THROUGH THE LOGISTIC MANAGER. FROM 7PM-7AM, PLEASE PAGE [phone](COVR) Chief Complaint No chief complaint on file. History of Present Illness Lise Canales is an 68 y.o. female who came from home with NSTEMi. This is a 68 years old female lady with a medical history of hypertension, hyperlipidemia, gastroesophageal reflux disease, carotid disease, fibromyalgia, arthritis, polymyalgia rheumatica, COPD, temporal arteritis, and psoriasis. Came into the [facility] ER as a transfer from [facility] for concern of chest pain and non-STEMI. There were concern of urinary tract infection with electrolyte abnormality including hypocalcemia she was complaining from dysuria and she had leukocytosis. Admitted the patient to the stepdown unit with full ACS protocol repeating EKG with telemetry and trending 3 sets of troponin and consulting cardiology for further recommendation initiating broad-spectrum antibiotic coverage including ceftriaxone and working her for ASCVD risk estimation with TTE ordered as well. Review of System and Physical Exam Temp: [36.8 ???C (98.2 ???F)] 36.8 ???C (98.2 ???F) Heart Rate: [98] 98 Resp: [22] 22 BP: (129)/(80) 129/80 Physical Exam Vitals and nursing note reviewed. Constitutional: Appearance: Normal appearance. She is normal weight. HENT: Head: Normocephalic and atraumatic. Right Ear: Tympanic membrane, ear canal and external ear normal. Left Ear: Tympanic membrane, ear canal and external ear normal. Nose: Nose normal. Mouth/Throat: Mouth: Mucous membranes are moist. Pharynx: Oropharynx is clear. Eyes: Conjunctiva/sclera: Conjunctivae normal. Pupils: Pupils are equal, round, and reactive to light. Cardiovascular: Rate and Rhythm: Normal rate. Pulmonary: Effort: Pulmonary effort is normal. Abdominal: General: Abdomen is flat. Bowel sounds are normal. Musculoskeletal: General: Normal range of motion. Cervical back: Normal range of motion and neck supple. Skin: General: Skin is warm. Capillary Refill: Capillary refill takes 2 to 3 seconds. Neurological: General: No focal deficit present. Mental Status: She is alert and oriented to person, place, and time. Mental status is at baseline. Psychiatric: Mood and Affect: Mood normal. Behavior: Behavior normal. Thought Content: Thought content normal. Judgment: Judgment normal. Review of Systems Constitutional: Positive for activity change. Cardiovascular: Positive for chest pain. Genitourinary: Positive for dysuria. All other systems reviewed and are negative. Problem List Patient Active Problem List Diagnosis Date Noted NSTEMI (non-ST elevated myocardial infarction) ([facility]) 06/05/2023 Acute on chronic respiratory failure with hypoxia (CMS/[facility]) 04/01/2022 Anemia, unspecified 04/01/2022 Recurrent spontaneous pneumothorax 03/30/2022 Giant cell arteritis with polymyalgia rheumatica ([facility]) 10/11/2021 Pneumothorax on left 08/02/2016 Coronary atherosclerosis 06/15/2014 Dyslipidemia 06/15/2014 Status post percutaneous transluminal coronary angioplasty 06/15/2014 Angina pectoris ([facility]) 05/04/2014 Electrocardiogram abnormal 05/04/2014 Abdominal pain 04/24/2014 Altered mental status 04/24/2014 Benign essential hypertension 04/24/2014 Congestive heart failure ([facility]) 04/24/2014 Dyspnea 04/24/2014 Gastroesophageal reflux disease 04/24/2014 History of psychiatric disorder 04/24/2014 Hyperlipidemia 04/24/2014 Headache 04/24/2014 Raynaud's disease 04/24/2014 Other and unspecified noninfectious gastroenteritis and colitis(558.9) 05/15/2007 Candidiasis of mouth 04/17/2007 COPD (chronic obstructive pulmonary disease) ([facility]) 04/17/2007 Diarrhea 04/17/2007 Loss of weight 04/17/2007 Other psoriasis 04/17/2007 Psoriatic arthropathy ([facility]) 04/17/2007 Other pneumothorax 03/30/2022 Assessment and Plan #Non-STEMI #Coronary artery disease -Admission to the stepdown unit -Telemetry monitoring -3 sets of troponin -Repeating EKG -ASCVD risk estimation including A1c and lipid panel -A full ACS protocol including heparin drip -Consult cardiology team for further recommendation -N.p.o. ordered at the time of admission for possible intervention -TTE ordered -Alcohol level with toxicology ordered -Continued home medication including aspirin with metoprolol and atorvastatin #Possible community-acquired pneumonia -Respiratory culture -Legionella test -IV ceftriaxone and doxycycline -2 sets blood culture #Urinary tract infection #Leukocytosis #Sepsis -2 sets blood culture -Urine urinalysis with urine culture -IV ceftriaxone antibiotic coverage #COPD -Continuous oximetry monitoring -Oxygen supplement to keep SpO2 over 92 -Scheduled (more content not included)... [facility] 08-14-2022 Note [place] Cardiology - [facility] Subjective Lise Easton Covert is a 67 y.o. year old female patient being seen for 10 mo follow up CAD and hypertension. A few months ago she was having severe epistaxis. She started taking aspirin and plavix every other day (alternating) and hasn't had recurrence. Denies chest pain and SOB. Says she feels great after she quit smoking in Feb 2022. Patient Active Problem List Diagnosis Abdominal pain Altered mental status Angina pectoris (CMS/HCC) Benign essential hypertension Candidiasis of mouth COPD (chronic obstructive pulmonary disease) (CMS/HCC) Congestive heart failure (CMS/HCC) Coronary atherosclerosis Diarrhea Dyslipidemia Dyspnea Electrocardiogram abnormal Gastroesophageal reflux disease History of psychiatric disorder Hyperlipidemia Loss of weight Other and unspecified noninfectious gastroenteritis and colitis(558.9) Other psoriasis Pneumothorax on left Giant cell arteritis with polymyalgia rheumatica (CMS/HCC) Headache Psoriatic arthropathy (CMS/HCC) Raynaud's disease Status post percutaneous transluminal coronary angioplasty Other pneumothorax Recurrent spontaneous pneumothorax Acute on chronic respiratory failure with hypoxia (CMS/HCC) Anemia, unspecified Family History Problem Relation Name Age of Onset Stroke Father Stroke Father's Sister Coronary artery disease Paternal Grandmother Social History Tobacco Use Smoking status: Former Types: Cigarettes Quit date: 03/06/2022 Years since quittin.4 Smokeless tobacco: Never Substance Use Topics Alcohol use: Not Currently HPI She is a 67 yo woman who has hypertension, hyperlipidemia and CAD s/p stenting of the LAD in May of 2014. She had stopped plavix in May of 2015. In 02/2020 she underwent stenting of the LAD ISR using DANNY. She did well with that. She has been maintained on dual antiplatelet therapy with aspirin and Plavix. She has not had any recurrence of angina or need for intervention to the coronary arteries since then. She has advanced COPD and underwent right upper and lower lobe resection. She is followed by pulmonary. She has stopped smoking. Prior history: She was admitted to [facility] in 10/2017 with sudden onset symptoms of numbness in the left side of the body. CT scan was negative. Carotid u/s 10/19/2017 showed no significant stenosis. MRI of the brain was done and she saw a neurologist Dr Layne and they did not think that there was a stroke. cardiac lynne she has been stable with no angina and no heart failure symptoms. Her main complaint is epistaxis on dual antiplatelet therapy. She has been taking aspirin every other day alternating with Plavix every other day. Review of Systems HENT: Positive for nosebleeds. Cardiovascular: Positive for dyspnea on exertion. Negative for chest pain, irregular heartbeat, leg swelling, orthopnea, palpitations and syncope. Respiratory: Negative for cough and shortness of breath. Musculoskeletal: Negative for arthritis, falls and neck pain. Gastrointestinal: Negative for diarrhea and dysphagia. Neurological: Negative for light-headedness and loss of balance. Objective Visit Vitals BP 139/72 (BP Location: Left arm, Patient Position: Sitting) Pulse 68 Ht 1.626 m (5' 4 ) Wt 49.9 kg (110 lb) LMP (LMP Unknown) SpO2 97% BMI 18.88 kg/m??? OB Status Postmenopausal Smoking Status Former BSA 1.5 m??? Physical Exam Constitutional: Appearance: She is well-developed. She is ill-appearing. HENT: Head: Normocephalic and atraumatic. Nose: Nose normal. Eyes: General: No scleral icterus. Pupils: Pupils are equal, round, and reactive to light. Neck: Thyroid: No thyromegaly. Vascular: No JVD. Cardiovascular: Rate and Rhythm: Normal rate and regular rhythm. Pulses: Radial pulses are 2+ on the right side and 2+ on the left side. Heart sounds: Normal heart sounds. No murmur heard. No friction rub. No gallop. Pulmonary: Effort: Pulmonary effort is normal. No respiratory distress. Breath sounds: Normal breath sounds. Decreased air movement (right lung filed) present. No wheezing or rales. Chest: Chest wall: No tenderness. Abdominal: General: Bowel sounds are normal. There is no distension. Palpations: Abdomen is soft. Tenderness: There is no abdominal tenderness. Musculoskeletal: General: No swelling. Cervical back: Neck supple. Skin: General: Skin is warm and dry. Neurological: General: No focal deficit present. Mental Status: She is alert and oriented to person, place, and time. Psychiatric: Mood and Affect: Mood normal. Behavior: Behavior is cooperative. Judgment: Judgment normal. Allergies Allergies Allergen Reactions Azithromycin Hives Latex Other Medications Current Outpatient Medications: aspirin 81 mg EC tablet, in the morning., Disp: , Rfl: cholecalciferol (Vitamin D-3) 50 MCG (1999) tablet, Take 50 mcg by (more content not included)... [facility] 03-15-2022 Note MR#: [id number] I [facility] Pt. Name: LizztLise Admitted: 03/08/2022 Discharged: 03/15/2022 Date of : 1955 Physician: Augustin Penn MD DISCHARGE SUMMARY PRIMARY DIAGNOSES: 1. Spontaneous/traumatic right-sided pneumothorax. 2. Acute hypoxic respiratory failure. 3. Chronic obstructive pulmonary disease without baseline oxygen requirement. 4. Microcytic anemia. 5. Tobacco use. 6. Giant-cell arteritis. 7. Polymyalgia rheumatica. 8. Coronary artery disease. 9. Neuropathy. 10. Essential hypertension. CONSULTATION: Pulmonology. HOSPITAL COURSE: The patient is a 66-year-old female, who presented to the [facility] with shortness of breath and fatigue, past medical history aforementioned above and the patient also has a history of left pneumothorax x2. The patient reported fall on 03/05 where she struck her left chest . She was at urologist's office the following day, who urged her to go to the ED due to shortness of breath, weakness and pallor. In the ED, hemoglobin was found to have 4.9. Chest x-ray showed large right-sided pneumothorax. UA is insignificant. COVID-19 was negative. The patient received 2 units of blood and right-sided was placed on 03/06, which is removal of 400 mL of air and subsequent re-expansion of the right lung. was removed 03/07 and replaced with large-bore chest tube; however, the repeat chest x-ray showed recurrence of pneumothorax, despite chest tube placement with associated air leak. The patient was subsequently transferred to for [facility] for further workup, was admitted to step-down unit and the Pulmonology team was evaluated the patient and the patient was continued on chest tube and subsequently chest tube was removed. Followup chest x-ray was okay. Hemoglobin was stable and the patient was medically stable for discharge. PHYSICAL EXAMINATION: GENERAL: At time of discharge, the patient's vitals stable. The patient is alert, and oriented x4. No visible distress noted. HEAD AND NECK: Atraumatic, normocephalic. EYES: EOMI. PERRLA. CHEST: No sign of labored breathing. MUSCULOSKELETAL: Intact. NEUROLOGY: Nonfocal. PSYCH: Mood stable. DISCHARGE MEDICATIONS: As per reconcile in the computer. DISCHARGE DISPOSITION: The patient is going home in stable condition. TOTAL TIME: 45 minutes evaluating the patient, reviewing chart, coordinating care with nursing staff. Electronically Signed by: Augustin Penn MD 04/03/2022 08:31 P ___ Augustin Penn MD Date Dict: 03/15/2022/03:38 P/Augustin Penn MD Date Trans: 03/15/2022 04:48 P/mmo [id number] cc: Erasto Burroughs M.D. [address] [address] [facility] 03-13-2022 Note MR#: [id number] I [facility] Pt. Name: Lise Canales Admitted: 03/08/2022 Discharged: 03/13/2022 Date of : 1955 Physician: Oli Pineda MD DISCHARGE SUMMARY PRINCIPLE DIAGNOSES: 1. Spontaneous right-sided pneumothorax due to underlying severe chronic obstructive pulmonary disease and component of recent fall, status post chest tube placement with talc pleurodesis on 03/10/2022. 2. Acute hypoxemic respiratory failure, secondary to #1. SECONDARY DIAGNOSES: 1. Chronic obstructive pulmonary disease. 2. Microcytic anemia. 3. Giant cell arthritis. 4. Polymyalgia rheumatica. 5. Coronary artery disease. 6. Depression. 7. Hypertension. IMAGING AND PROCEDURES: Chest tube placement on 03/10/2022. HOSPITAL COURSE: Again, the patient was admitted to the hospital on March 08, 2022, with a spontaneous right-sided pneumothorax, which required chest tube placement and talc pleurodesis on 03/10/2022. The patient did fairly well and currently she is on 1-2 L nasal cannula. My understanding that the patient is possibly being discharged today after chest tube removal. The patient was seen alert, in no acute distress. PHYSICAL EXAMINATION: HEENT. Eyes, extraocular muscles intact. NECK: Supple. LUNGS: Diminished breath sounds at the bases, right more on the left. HEART: S1, S2. ABDOMEN: Soft. Positive bowel sounds. EXTREMITIES: No edema. The patient to follow up with Pulmonary Service as well as with PCP in about 1 week post discharge. Total time of discharge over 60 minutes. Electronically Signed by: Oli Pineda MD 04/07/2022 11:21 A ___ Oli Pineda MD Date Dict: 03/13/2022/10:09 A/Oli Pineda MD Date Trans: 03/13/2022 10:30 A/gabriela [id number] cc: Erasto Burroughs M.D. [address] [place] [address] [facility] 03-09-2022 Note MR#: [id number] I [facility] Pt. Name: Lise Canales Admitted: 03/05/2020 Discharged: 03/09/2020 Date of : 1955 Physician: Iman Willis MD DISCHARGE SUMMARY DISCHARGE ATTENDING: Iman Willis MD PRIMARY DIAGNOSES: 1. Sinus tachycardia. 2. Anxiety. 3. Diarrhea. 4. Metabolic acidosis. 5. Ileus. 6. Helicobacter pylori infection. 7. Gastroesophageal reflux disease. 8. Acute anemia on chronic anemia secondary to hematochezia. CONSULTATIONS: Include Gastroenterology. HISTORY OF PRESENT ILLNESS: This is a 66-year-old female with history of ileus, depression, gastritis, Helicobacter pylori infection, who presented to [facility] Emergency Department complaining of sudden onset of high heart rate, tachycardia, and she also reported diaphoresis and chest discomfort with shortness of breath, described symptoms as intermittent, but denies these symptoms ever occurring previously. She was brought to the hospital via EMS and reports nausea with GI issues as well. She was admitted for further observation. As per EMS, reported heart rate was 160 to 170s. They did administer adenosine 6, 12, and 12 mg as well as IV Ativan and IV fluids received while she was in the emergency department. The patient was acidotic, likely secondary to GI losses. Gastroenterology was consulted to evaluate the patient and performed an EGD on 03/07 and 03/08. The patient did have recent Helicobacter pylori infection diagnosed from EGD on 02/13 and was started on treatment for the infection, although she has not completed treatment. At the time of admission, she also has a previous Lashaun-Kramer tear with 2 cm hiatal hernia that was observed in October 2021. EGD on 03/07/2022 did not observe any gastritis or ulcerations and recommendations from GI service for the patient to resume treatment for Helicobacter pylori infection. Recommending the patient to restart a 14-day course from day 1 on day of discharge, which is 03/08/2022. The patient does have in her medical records from outlying facilities that she was drug seeking and [place] report was reviewed with multiple prescribers for a variety of controlled medications over the past 2 years with even more so within the last 4 to 6 months. The patient was discharged to home in a stable condition. She continues to complain of abdominal pain, although she is not willing to take medications for her Helicobacter pylori infection. She was provided prescription for the Helicobacter pylori treatment. Discussed with the patient importance of completing treatment course. She also was given a followup appointment with the primary care provider through [facility] for close followup for her anxiety and abdominal pain with nausea. The patient had a followup appointment scheduled with center for anxiety. DISCHARGE INSTRUCTIONS: Include medications for treatment of Helicobacter pylori as prescribed. Follow up with primary care within 1 week. Follow up with GI in the clinic and take Zofran and Phenergan as needed. Follow up with Psychiatry or Primary Care for assistance with treatment of anxiety. No dietary restrictions. No activity restrictions. center appointment scheduled for 03/14/2022 at 9 a.m. The patient to call the GI clinic for followup within 2 to 4 weeks. Follow up at [facility] on 03/16/2022 at 9:50 a.m. MEDICATIONS AT THE TIME OF DISCHARGE: Include bismuth 300 mg 4 times per day, metronidazole 250 mg 4 times per day, pantoprazole 40 mg 2 times per day, tetracycline 500 mg 2 times per day, all to be taken for 14 days. Continue Benadryl and promethazine as needed. TOTAL TIME OF DISCHARGE: 37 minutes. Electronically Signed by: Iman Willis MD 03/11/2022 09:37 A ___ Iman Willis MD I have reviewed this discharge summary and confirmed the resident's documentation. Please note that there may be additional documentation from me. Date Dict: 03/08/2022/03:04 P/Paulette Mccord CNP Date Trans: 03/09/2022 11:21 A/dilciao [id number] cc: Marti Poole M.D. [address] [place] [phone] Erasto Burroughs M.D. [address] [facility]. [facility] [id number] [facility] Evaluation note No assessment inform ation available [facility] Work Phone: History and physical note Note Date/Time June 26, 2023 2:44pm [facility] [address] [place] [address] Gastroenterology H&P Signed Patient: Lise Canales MR#: [id number] : 1955 Acct:[id number] Age/Sex: 68 / F Adm Date: 3 Loc: Room: Type: [facility] Attending Dr: Remy Givens MD Copies to: MD Erasto Mcdonald MD~ Date of Service: 06/26/2023 HISTORY & PHYSICAL: Patient's history with special attention to the cardiovascular, pulmonary systems and the current problem was reviewed with the patient immediately prior to the procedure. Present medications and doses reviewed in the EMR. Allergies and pertinent laboratory tests were also reviewedat this time in the EMR. The physical examination, as below, was then performed. Indication, assessment and HPI: 68-year-old female presents for EGD to evaluate dysphagia Family history of GI malignancy? No PHYSICAL EXAMINATION Mouth and Pharynx : Moist mucus membranes, normal dentition Cardiac: Regular rate, regular rhythm Pulmonary: Clear to auscultation bilaterally, no wheezing Neurological: Alert and oriented x3, no focal deficits noted Abdomen: Abdomen soft, non-tender REVIEW OF SYSTEMS Constitutional: Denies malaise, fevers Cardiovascular: Denies chest pain, palpitations Respiratory: Denies shortness of breath, wheezing Gastrointestinal: Per HPI Genitourinary: Denies dysuria, polyuria Musculoskeletal: Denies joint swelling, joint stiffness Neurological: Denies numbness, tingling Integumentary: Denies rashes, skin lesions Endocrine: Denies fatigue, weight loss Written informed consent obtained from the patient. Risks (including but not limited to perforation, infection, bloating, bleeding, need for emergent surgeryand loss of life), benefits and alternatives explained and questions answered. The patient verbalized understanding. Based on history patient is an appropriate candidate for the procedure. Remy Givens MD Documented By: Remy Givens MD 06/26/23 5312 Signed By: <Electronically signed by Remy Givens MD> 06/26/23 2882 [facility] Work Phone: Hospital Discharge instructions Additional Instructions DISCHARGE INSTRUCTIONS FOR UPPER ENDOSCOPY WHAT TO EXPECT: - You may feel full, gassy or cramping after your procedure. In some cases, this may be from a few hours to a day. Walking may help relieve the discomfort. - Your throat may feel sore today from the scope that the doctor passed through your throat to visualize your stomach. Take a throat lozenge or suck on ice to ease the discomfort. - You may notice some streaks of blood in your sputum if the doctor has taken a biopsy. - You should begin to recover from anesthesia within 1 hour of the procedure, however may feel groggy for the next 24 hours. DO's AND DON'Ts: - Call your doctor right away if you have a hard abdomen, severe pain, vomiting or if you cough up large amounts of blood. - Call your doctor if you develop any rashes, hives or difficulty breathing. - If you take 81 mg aspirin for your heart it is safe to resume this medication. - If you take other blood thinner medications your doctor will instruct you when these can safely be resumed. - Do NOT drive for 24 hours. - Do NOT operate machinery such as power tools, [employer] mowers, snow blowers, sewing machines, etc. for 24 hours. - Avoid alcoholic beverages and drugs for allergies, nerves, or sleep. - Do NOT stay alone. Do NOT leave your child unattended. - Do NOT make important personal or business decisions or sign any legal documents. - Eat solid foods and drink liquids in smaller amounts than usual until normal appetite returns. If you should experience an upset stomach, liquids high in sugar content (soda, Braden-Aid, non-acid juices) are recommended. - Do NOT smoke. - Do take it easy today. You need not stay in bed, but avoid strenuous activities such as jogging or working out. FOLLOW UP & RECOMMENDATIONS: -The GI office will schedule you a follow-up appointment to see if your swallowing improved after your dilation if not then we will recommend further testing. -Continue your omeprazole twice daily. -Notify the doctor if you have any problems. -Follow up with PCP. -Office number [phone].[facility] Work Phone: Summary Purpose Family History No Family History Records Found Relationship Condition Age at Onset Recorded Date/T enrique father Cerebrovascular accident (CVA) Unknown Advance Directives No Advanced Directives Records Found Advance Directive Response Recorded Date/ Time Advance Directives No November 09, 2017 7:38am Chief Complaint and Reason for Visit Chief Complaint Esophageal Dysmotili ty Additional Source Comments INFORMATION SOURCE (unrecogn ized section and content) DATE CREATED AUTHOR 04/11/2022 [facility] DATE CREATED AUTHOR AUTHOR'S ORGANIZ ATION 11/04/2022 [facility] DATE CREATED AUTHOR AUTHOR'S ORGANIZ ATION 04/18/2023 [facility] DATE CREATED AUTHOR AUTHOR'S ORGANIZ ATION 06/17/2023 [facility] EPIC DATE CREATED AUTHOR AUTHOR'S ORGANIZ ATION 06/27/2023 [facility] DATE CREATED AUTHOR AUTHOR'S ORGANIZ ATION 06/28/2023 [facility] Care Teams (unrecognized sec tion and content) Team Status: Active Member Role Status Dates Erasto Burroughs MD Primary Care Provider Active Team Status: Inactive Member Role Status Dates Erasto Burroughs MD Primary Care Provider Active Remy Givens MD Attending Provider Active FOR RECORDS PERTAINING TO PATIENTS WHO ARE OR HAVE BEEN ENROLLED IN A CHEMICAL DEPENDENCY/SUBSTANCEABUSE PROGRAM, SOME INFORMATION MAY BE OMITTED. This clinical summary was aggregated from multiple sources. Caution should be exercised in using it in the provision of clinical care. This summary normalizes information from multiple sources, and as a consequence, information in this document may materially change the coding, format and clinical context of patient data. In addition, data may be omitted in some cases. CLINICAL DECISIONS SHOULD BE BASED ON THE PRIMARY CLINICAL RECORDS. [facility]. provides no warranty or guarantee of the accuracy or completeness of information in this document.
== END 2023-06-27 15:08 | disposition home or self-care (01) ==
LOC: LAB 15:09
PROVIDERS: PCP Family Medicine; Visit Provider Internal Medicine
DX: E87.1 Hypo-osmolality and hyponatremia (principal)
CPT/HCPCS: 36415; 80048

== ENCOUNTER 2023-12-18 14:31 | Inpatient (IN) | payer OTHER, MEDICARE, SELFPAY ==
[2023-12-18] VITALS (32 sets, daily range): BP systolic 93–133; BP diastolic 44–80; PULSE 96–134; TEMP 36.7–36.9; O2SAT 85–96; BMI 18.0; BMI 18.7
--- NOTE | 2023-12-18 14:43 | XR_ITS ---
The [address] [address] Patient Name: SANDRA Easton COVERT MRN: [facility]:[id number] date: 1955 Sex: F Assigned Patient Location: ER Current Patient Location: ER Accession/Order Number: [id number] Exam Date: 12/18/2023 15:05 Report Date: 12/18/2023 15:22 At the request of: TYSHAWN CARRIZALES Procedure: XR chest 1V EXAM: XR chest 1V HISTORY: shortness of breath COMPARISON: Chest study dated 06/04/2023 TECHNIQUE: AP view of the chest was obtained with portable technique at 3:02 PM. FINDINGS: Heart and mediastinal contours are unremarkable in appearance. Mild COPD. Moderate patchy and somewhat consolidated density in the right lower lung field compatible with infiltrate. There may be minimal patchy infiltrative changes in the right mid/upper lung field and the left lower lung field. Mild COPD. Postoperative clips are noted on the right. Bony structures are stable in appearance. Postoperative sutures are noted on the right. XR/XR chest 1V IMPRESSION: Mild COPD. Patchy and somewhat consolidated infiltrate in the right lower lung field progressed since prior exam. There may be minimal infiltrative changes in the right mid/upper lung field and left lower lung field. Electronically authenticated by: JOSE DE JESUS EDGAR Date: 12/18/2023 15:22
--- NOTE | 2023-12-18 14:43 | ECG_ITS ---
The [facility] Test Date: 2023-12-18 Pat Name: SANDRA CANALES Department: Room: - Gender: Female [employer] Worker: : 1955 Requested By: [id number] Order Number: [id number] Reading MD: NATALIA YANEZ Measurements Intervals [place] Rate: 130 P: 260 NM: 112 QRS: 88 QRSD: 78 T: 80 QT: 328 QTc: 405 Interpretive Statements 1220 Rapid atrial rhythm Inferolateral ST changes, can't exclude myocardial ischemia 9140 abnormal rhythm ECG Electronically Signed On 12-18-2023 21:11:45 EDT by NATALIA YANEZ
[2023-12-18] MEDS: IPRATROPIUM/ALBUTEROL SULFATE 3 ML AMPUL.NEB IH ×2 (15:05→19:51)
[2023-12-18] MEDS: ALBUTEROL SULFATE 2.5 MG/3 ML VIAL NEB IH (15:05)
[2023-12-18 15:15] LABS: Hematocrit 42.2 % (36.0-48.0); Hemoglobin 13.8 g/dL (12.0-16.0); Mean Corpuscular HGB Conc 32.7 g/dL (29.9-35.2); Mean Corpuscular Hemoglobin 30.4 pg (26.7-34.0); Mean Platelet Volume 9.5 fL (9.5-13.5); Platelet Count 381 10^3/uL (150-450); Red Blood Count 4.54 10^6/uL (4.20-5.40); Red Cell Distribution Width 13.6 % (11.0-15.0)
[2023-12-18 15:42] LABS: Alanine Aminotransferase 15 U/L (14-59); Albumin Globulin Ratio 0.6; Albumin Level 2.7 g/dL (3.4-5.0); Alkaline Phosphatase 106 U/L (46-116); Anion Gap 14.6; Aspartate Amino Transferase 13 U/L (15-37); BUN Creatinine Ratio 12.6; Bilirubin Total 0.8 mg/dL (0.2-1.0); Carbon Dioxide 26.8 mmol/L (21.0-32.0); Chloride 97 mmol/L (98-107); Estimated GFR (African America 39 (>=60); Estimated GFR (Non-African Ame 32 (>=60); Globulin 4.3 g/dL; Glucose 261 mg/dL (74-106); Potassium 3.4 mmol/L (3.5-5.1); Sodium 135 mmol/L (136-145)
[2023-12-18 15:44] LABS: Lactate/Lactic Acid 4.5 mmol/L (0.4-2.0)
[2023-12-18 15:51] LABS: PROCALCITONIN 7.15 ng/mL (0.00-0.50)
[2023-12-18 15:57] LABS: Band Neutrophils Absolute 0.7 10^3/uL (0.0-0.3); Lymphocytes Absolute Manual 1.68 10^3/uL (1.20-3.80); Monocytes Absolute Manual 0.84 10^3/uL (0.30-0.80); Segmented Neut Absolute Manual 10.78 10^3/uL (1.4-6.5)
[2023-12-18] MEDS: 0.9 % SODIUM CHLORIDE 500 ML IV (16:05)
[2023-12-18] MEDS: LEVOFLOXACIN IN DEXTROSE 5 % 750 MG/150 ML IV.SOLN 100 MG IV (16:06)
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
--- OUTSIDE RECORDS SUMMARY | 2023-12-18 18:30 | XMS_ITS ---
Patient Summarization (C-CDA 2.1 CCD) Created on: December 18, 2023 COVERT LISE FLORES : 1955 Sex: Female Author Organization Sample organization Care Team Providers Care Feltmaker Name Role Phone BALAJIROSELIAVALERIO Admitting Unavailable NADERER, ERASTO Primary Care Unavailable [...] Consulting Unavailable SAMSA ., ISHAN Consulting Unavailable HEIKE, DR ERASTO Carrera Admitting Unavailable NADERER, DR [...] HEIKE, DR ERASTO Carrera Primary Care Unavailable NADERETorri, DR ERASTO Carrera Attending Unavailable NADERETorri, DR ERASTO Carrera Admitting Unavailable WEST, DR ASAEL Fox Consulting Unavailable DORIS Ortiz, NARCISA Procedure Practitioner Unava ilable ANGELES, DR [...] Unavailable ZACH, DR AVINASH Pelayo Consulting Unavailbailey e ZACH, DR AVINASH Pelayo Procedure Practitioner Audrey valerie SARAVIA, ORESTES Procedure Practitioner Unavailab davey REYNOSO, DR MIGUE Wild Consulting Unavailable NADERER, DR ERASTO Carrera Consulting Unavailable SAMSA ., ISHAN Procedure Practitioner Unavailab le NATALIYA ., GRADY ARANDA Consulting Unavailabl e MANJIT, ORESTES Consulting Unavailable SAMSA ., ISHAN Consulting Unavailable KIKA, ASAEL Consulting Unavailable SCHNERUTHIE, STEPHEN Consulting Unavailable SISTER, BERENICE Consulting Unavailable OSCAR, TYSHAWN Consulting Unavailable NADERER, DR ERASTO Carrera Primary [...] Unavailable NADERER, DR ERASTO Carrera Attending Unavailable SHAIKH FINN Attending Unavailable MD Erasto Burroughs Primary Care Provider MD Remy Givens Attending Provider [phone] MERZA, NOORALDIN Referring Unavailable MOUKARBJER MARTÍNEZ Attending Unavailable JER NEFF Attending Unavailable AVINASH SERRANO Referring Unavailable KAUSHAL, JAZMIN Admitting Unavailable HORANI, KONG Attending Unavailable MERZA, NOORALDIN Referring Unavailable HORANI, KONG Referring Unavailable MERZA, NOORALDIN Referring Unavailable Remy Givens Attending Unavailable Remy Givens Admitting Unavailable NadereErasto wild Primary Care Unavailable Erasto Burroughs MD Primary Care Provider Ihsan BROWN Attending Unavailable Ihsan BROWN Attending Unavailable Ihsan BROWN Attending Unavailable Iman Jeter Attending Unavaila ble Allergies Allergy Classification Reported Allergen(s) Allergy Type Date of Onset Reaction(s) Facility (4 sources) Azithromycin; Translations: [AZITHROMYCIN] Drug Allergy 9 Hives [facility] Repository (5 sources) Latex; Translations: [LATEX] Drug allergy (disorder) 7 Hives [facility] Repository (1 source) Azithromycin Drug Allergy 2 [facility] (1 source) Latex Drug allergy (disorder) 2 [facility] (1 source) [facility] Latex Allergy to substance 3 [facility] (1 source) Azithromycin; Translations: [Zithromax] Drug Allergy [facility] Repository Encounters Encounter Date Encounter Type Care Provider Facility Start: 05-12-2024 [facility] Start: 11-09-2023 End: 11-10-2023 ambulatory Ihsan BROWN Facility:[facility] Start: 08-18-2023 Refill Erasto Leggett Work Phone: [facility] Comment on above: DDD (degenerative di sc disease), lumbar (Primary Dx) Start: 06-27-2023 ambulatory JER FITZGERALDMAURICIO [facility] Start: 06-26-2023 End: 06-26-2023 ambulatory Remy Givens Facility:[facility] Start: 06-26-2023 End: 06-26-2023 Admission to same day surgery center MD Erasto Burroughs Work Phone: [facility] Work Phone: Start: 06-26-2023 End: 06-26-2023 ambulatory MD Erasto Burroughs Work Phone: [facility] Work Phone: Start: 06-14-2023 End: 06-14-2023 ambulatory SHAIKH HUMA Not Available Start: 06-05-2023 Evaluation and management of inpatient KONG BEAULIEU [facility] Start: 06-05-2023 Evaluation and management of inpatient [facility] Start: 06-05-2023 Evaluation and management of inpatient [facility] Start: 06-05-2023 End: 06-06-2023 Evaluation and management of inpatient AVINASH SERRANO [facility] Start: 05-15-2023 ambulatory Valerio Quan Jeter Facility:[facility] Start: 04-16-2023 End: 04-17-2023 ambulatory Ihsan BROWN Facility:[facility] Start: 10-31-2022 End: 11-01-[address] ERASTO BURROUGHS Facility:[facility] Start: 10-10-2022 End: 10-11-[address] ERASTO BURROUGHS Facility:[facility] Start: 08-14-2022 ambulatory [facility] Start: 05-01-2022 End: 05-02-[address] ERASTO BURROUGHS Facility:[facility] Start: 05-01-[address] ERASTO BURROUGHS Facil ity:[facility] Start: 04-25-2022 End: 04-26-[address] ERASTO BURROUGHS Facility:[facility] Start: 04-04-2022 Encounter for genera l adult medical examination without abnormal findings DR ERASTO BURROUGHS [facility] Start: 03-30-[address] ERASTO BURROUGHS Facil ity:[facility] Start: 03-29-2022 Encounter for genera l adult medical examination without abnormal findings DR ERASTO BURROUGHS [facility] Start: 03-28-2022 End: 03-30-2022 Evaluation and management of inpatient DR ERASTO BURROUGHS Facility:[facility] Start: 03-28-2022 End: 03-29-[address] ERASTO BURROUGHS Facility:[facility] Start: 03-28-2022 End: 03-29-2022 Encounter for general adult medical examination without abnormal findings DR ERASTO BURROUGHS Facility:[facility] Start: 03-08-2022 End: 03-15-2022 Evaluation and management of inpatient VALERIO ALI Facility:[facility] Start: 03-06-2022 End: 03-08-2022 Evaluation and management of inpatient DR ERASTO BURROUGHS Facility: Start: 12-22-2021 End: 12-23-[address] ERASTO BURROUGHS Facility: Start: 12-14-2021 End: 12-14-[address] ERASTO BURROUGHS Facility: Start: 12-12-2021 End: 12-13-[address] ERASTO BURROUGHS Facility: Goals Date Patient Goal Desired Activity /State Medications Current Medications Medication Drug Class(es) Dates Sig (Normalized) Sig (Original) acetaminophen 500 mg oral tablet (1 source) Start: 04-06-2022 Acetaminophen (Tylenol Ex Str Rapid Release) 500 mg Tablet Active 1000 MG PO Q6H April 05, 2022 11:00pm albuterol 0.833 mg/ml / ipratropium bromide 0.167 mg/ml inhalation solution (1 source) Anticholinergic, beta2-Adrenergic Agonist Start: 04-06-2022 take 1 mL by inhalation four times daily Ipratropium-Albutero l Active 0.5 ML INHALATION Four times daily April 05, 2022 11:00pm arginine 500 mg oral tablet (1 source) Start: 05-17-2023 take 1 tablet by mouth every twelve hours arginine 500 MG tablet Take 1 tablet by mouth every 12 (twelve) hours 0 05/17/2023 Active aspirin 81 mg delayed release oral tablet [...] 05, 2022 11:00pm cholecalciferol 0.05 mg oral capsule (2 sources) Vitamin D Start: 06-26-2023 End: 06-26-2024 take 1 capsule by mouth once in the morning cholecalciferol (Vitamin D-3) 50 MCG (1999 UT) capsule Indications: Vitamin D deficiency Take 1 capsule (50 mcg) by mouth in the morning. 90 capsule 3 06/26/2023 06/26/2024 Active Start: 04-06-2022 take 50 ug by mouth once daily Cholecalciferol (Vitamin D3) Active 50 MCG PO Daily April 05, 2022 11:00pm clopidogrel 75 mg oral tablet (2 sources) [id number] Platelet Inhibitor Start: 04-06-2022 End: 06-26-2023 take 1 tablet by mouth in the morning clopidogrel (Plavix) 75 MG tablet Take 1 tablet by mouth in the morning. 0 07/17/2022 Active DULoxetine 30 mg delayed release oral capsule (2 sources) Serotonin and Norepinephrine Reuptake Inhibitor Start: 04-26-2023 take 3 capsules by mouth in the morning DULoxetine (Cymbalta) [address] capsule Take 3 capsules by mouth in the morning. 0 04/26/2023 Active Start: 04-06-2022 take 90 mg by mouth once daily Duloxetine Active 90 MG PO Daily April 05, 2022 11:00pm eszopiclone 3 mg oral tablet (2 sources) Start: 04-06-2022 take 1 tablet by mouth at bedtime eszopiclone (Lunesta) 3 MG tablet Take 1 tablet by mouth at bedtime 0 05/09/2023 Active furosemide 40 mg oral tablet (1 source) Loop Diuretic Start: 05-30-2023 take 1 tablet by mouth every twenty-four hours as needed furosemide (Lasix) 40 MG tablet Take 1 tablet by mouth Daily as needed 0 05/30/2023 Active ipratropium bromide 0.2 mg/ml inhalation solution (1 source) Anticholinergic ipratropium (Atrovent) 0.02 % nebulizer solution Take 0.5 mg by nebulization every 6 (six) hours 0 Active 200 actuat levalbuterol 0.045 mg/actuat metered dose inhaler (1 source) beta2-Adrenergic Agonist take 2 puff(s) by inhalation every four hours for wheezing levalbuterol (Xopenex HFA) 45 MCG/ACT inhaler Inhale 2 puffs every 4 (four) hours if needed for wheezing 0 Active melatonin 5 mg oral tablet (1 source) Start: 04-06-2022 take 5 mg by mouth at bedtime Melatonin Active 5 MG PO Bedtime April 05, 2022 11:00pm metoprolol tartrate 25 mg oral tablet (2 sources) beta-Adrenergic Joslyn Start: 06-08-2023 take 0.5 tablet by mouth in the morning metoprolol tartrate (Lopressor) 25 MG tablet Take 0.5 tablets by mouth in the morning and 0.5 tablets before bedtime. 0 06/08/2023 Active Start: 04-06-2022 take 12.5 mg by mout h every twelve hours Metoprolol Tartrate Active 12.5 MG PO Q12H April 05, 2022 11:00pm omeprazole 40 mg delayed release oral capsule (1 source) Proton Pump Inhibitor take 1 capsule by mouth before mealtime omeprazole (PriLOSEC) [address] capsule Take 1 capsule by mouth in the morning. Take before meals. 0 Active ondansetron 4 mg disintegrating oral tablet (1 source) Serotonin-3 Receptor Antagonist Start: 03-21-20 take 1 tablet by mouth every six hours as needed ondansetron ODT (Zofran-ODT) 4 MG disintegrating tablet Take 1 tablet by mouth every 6 (six) hours if needed 0 03/21/2023 Active pantoprazole 40 mg delayed release oral tablet (1 source) Proton Pump Inhibitor Start: 04-06-20 take 40 mg by mouth once daily Pantoprazole Active 40 MG PO Daily April 05, 2022 11:00pm potassium chloride 20 meq extended release oral tablet (1 source) Start: 05-30-20 take 1 tablet by mouth every twenty-four hours as needed potassium chloride CR (K-Tab) 20 MEQ ER tablet Take 1 tablet by mouth Daily as needed 0 05/30/2023 Active predniSONE 10 mg oral tablet (1 source) Start: 04-06-20 take 10 mg by mouth once daily Prednisone Active 10 MG PO Daily April 05, 2022 11:00pm pregabalin 100 mg oral capsule (2 sources) Start: 08-20-19 take 1 capsule by mouth three times daily pregabalin (Lyrica) 100 MG capsule Indications: DDD (degenerative disc disease), lumbar TAKE 1 CAPSULE BY MOUTH THREE TIMES DAILY 270 capsule 0 08/20/2023 Active Start: 04-06-2022 take 100 mg by mouth three times daily Pregabalin Active 100 MG PO Three times daily April 05, 2022 11:00pm Completed/Discontinued Medications Medication Drug Class(es) Dates Sig (Normalized) Sig (Original) Fluticasone Furoate-Vilantero l (1 source) Corticosteroid, beta2-Adrenergic [...] 05, 2022 11:00pm June 26, 2023 1:32pm Payers Date Payer Category Payer Medicare [id number] 2023 Self-pay [id number] 2022 Unknown [employer] [id number] 2022-Present [phone] [address] [address] [place] [address] [id number] 2013 Medicare MEDICARE MEDICAR E PART B [id number] 2013-[place] [address] Medicare [id number] 1959 Medicare [id number] 1959 Unknown [id number] 1959 Unknown [id number] 1957 Unknown [id number] 2.16.840.1.365485.3.579.2.64 7 1957 Unknown [id number] 2.16.840.1.316059.3.579.2.59 3 1957 Unknown [id number] 2.16.840.1.264427.3.579.2.59 3 1957 Unknown [id number] 2.16.840.1.655022.3.579.2.59 3 1957 Unknown [id number] 2.16.840.1.952062.3.579.2.59 3 1957 Unknown [id number] 2.16.840.1.399171.3.579.2.59 3 1957 Unknown [id number] 2.16.840.1.579342.3.579.2.59 3 1957 Unknown [id number] 2.16.840.1.483952.3.579.2.59 3 1957 Unknown [id number] 2.16.840.1.128079.3.579.2.59 3 1957 Unknown [id number] 2.16.840.1.460424.3.579.2.59 3 1957 Unknown [id number] 2.16.840.1.341287.3.579.2.59 3 1957 Unknown [id number] 2.16.840.1.389335.3.579.2.59 3 1957 Unknown [id number] 2.16.840.1.437549.3.579.2.59 3 1957 Unknown [id number] 2.16.840.1.292359.3.579.2.59 3 1957 Unknown [id number] 2.16.840.1.998477.3.579.2.12 59 1957 Unknown [id number] 2.16.840.1.917523.3.579.2.72 7 1957 Unknown [id number] 2.16.840.1.646529.3.579.2.72 7 1957 Unknown [id number] 2.16.840.1.083192.3.579.2.72 7 1957 Unknown [id number] 2.16.840.1.782763.3.579.2.72 7 Unknown [id number] 2.16.840.1.811787.3.579.2.53 1 Plan of Treatment Date Care Activity Detail Author Start: 09-05-2023 Hemoglobin A1c measurement Diabetes: Hemoglobin A1C [facility] Start: 08-27-2023 End: 08-27-2023 Patient encounter procedure 08/27/2023 2:30 PM EST Office Visit [facility] [address] [place] [id number] Erasto Burroughs MD [address] [place] [id number] [facility] Start: 06-26-2023 [facility] Start: 03-09-2023 Influenza vaccination Influenza Vacc ine (#1) [facility] Start: 1997 Screening for malign ant neoplasm of breast Mammogram [facility] Start: 1976 Urine screening for protein Diabetes: Urine Protein Screening [facility] Start: 1967 Glaucoma screening Diabetes: R etinopathy Screening [facility] Start: 1957 Screening for malign ant neoplasm of colon [facility] Patient Education Esophageal Dilation [facility] Work Phone: Problems Active Problems Problem Classification Problem Date Documented Date Episodic/Chronic Acute myocardial infarction (2 sources) Non-ST elevation (NSTEMI) myocardial infarction; Translations: [Non-ST elevation (NSTEMI) myocardial infarction] Onset: 06-05-20 23 Chronic Chronic obstructive pulmonary disease and bronchiectasis (3 sources) Chronic obstructive pulmonary disease, unspecified; Translations: [Emphysema, unspecified] Onset: 12-19-19 22 Chronic Coronary atherosclerosis and other heart disease (4 sources) Atherosclerotic heart disease of [place] coronary artery without angina pectoris; Translations: [ATHSCL HEART DISEASE OF [place] CORONARY ARTERY W/O ANG PCTRS] Onset: 03-08-20 Chronic Coronary atherosclerosis and other heart disease (2 sources) Presence of coronary angioplasty implant and graft; Translations: [Presence of coronary angioplasty implant and graft] Onset: 06-27-20 Episodic Deficiency and other anemia (1 source) Iron deficiency anemia, unspecified; Translations: [IRON DEFICIENCY ANEMIA, UNSPECIFIED] Onset: 03-08-20 Episodic Diabetes mellitus with complications (1 source) Type 2 diabetes mellitus with hyperglycemia; Translations: [TYPE 2 DM W/HYPERGLYCEMIA] Onset: 03-16-20 Chronic Diabetes mellitus without complication (1 source) Type 2 diabetes mellitus without complications; Translations: [TYPE 2 DM WITHOUT COMPLICATIONS] Onset: 05-01-20 Chronic Diabetes mellitus without complication (1 source) Hyperglycemia, unspecified; Translations: [HYPERGLYCEMIA, UNSPECIFIED] Onset: 03-08-20 Episodic Disorders of lipid metabolism (1 source) Pure hypercholesterolemia, unspecified; Translations: [PURE HYPERCHOLESTEROLEMIA UNSPEC] Onset: 05-01-20 Chronic Essential hypertension (4 sources) Essential (primary) hypertension; Translations: [ESSENTIAL (PRIMARY) HYPERTENSION] Onset: 03-08-20 Chronic Fluid and electrolyte disorders (2 sources) Dehydration; Translations: [Hyponatremia] Onset: 12-19-19 22 06-14-2023 Episodic Mood disorders (1 source) Major depressive disorder, single episode, unspecified; Translations: [ANDRES DEPRESS D/O SINGLE EPIS UNS] Onset: 05-01-20 Chronic Mood disorders (1 source) Mood disorders; Translations: [DEPRESSION, UNSPECIFIED] Onset: 03-08-20 Nutritional deficiencies (1 source) Vitamin D deficiency, unspecified; Translations: [VITAMIN D DEFICIENCY UNSPECIFIED] Onset: 03-29-20 Chronic Osteoarthritis (4 sources) Primary generalized (osteo)arthritis; Translations: [PRIMARY GENERALIZED OSTEOARTHRITIS] Onset: 10-11-19 Chronic Osteoporosis (5 sources) Age-related osteoporosis without current pathological fracture; Translations: [AGE-REL OSTEOPOR W/O CURR PATH FX] Onset: 12-23-19 Chronic Other aftercare (5 sources) Other custodial (current) drug therapy; Translations: [OTH SENIOR LIVING CURRENT DRUG THERAPY] Onset: 10-24-20 22 Episodic Other aftercare (1 source) Post-discharge follow-up; Translations: [Encounter for follow-up examination after completed treatment for conditions other than malignant neoplasm] Onset: 06-14-20 23 06-14-2023 Episodic Other circulatory disease (1 source) Raynaud's syndrome without gangrene; Translations: [RAYNAUDS SYNDROME WITHOUT GANGRENE] Onset: 12-19-19 Chronic Other connective tissue disease (2 sources) Polymyalgia rheumatica; Translations: [POLYMYALGIA RHEUMATICA] Onset: 03-08-20 Chronic Other gastrointestinal disorders (1 source) Dysphagia, unspecified; Translations: [Dysphagia, unspecified] Onset: 06-26-20 Episodic Other lower respiratory disease (4 sources) Other nonspecific abnormal finding of lung field; Translations: [OTH NONSPECIFIC ABN FIND LNG FIELD] Onset: 11-01-19 Episodic Other non-traumatic joint disorders (1 source) Arthropathy in other blood disorders; Translations: [ARTHROPATHY OTHER BLOOD DISORDERS] Onset: 12-17-19 Chronic Pleurisy; pneumothorax; pulmonary collapse (12 sources) Spontaneous pneumothorax; Translations: [Spontaneous tension pneumothorax] Onset: 03-06-20 Episodic Pneumonia (except that caused by tuberculosis or sexually transmitted disease) (3 sources) Pneumonia, unspecified organism; Translations: [PNEUMONIA UNSPECIFIED ORGANISM] Onset: 05-01-20 Episodic Respiratory failure; insufficiency; arrest (adult) (2 sources) Chronic respiratory failure with hypoxia; Translations: [Dependence on supplemental oxygen] Onset: 05-01-20 Chronic Spondylosis; intervertebral disc disorders; other back problems (1 source) Degeneration of lumbar intervertebral disc; Translations: [Other intervertebral disc degeneration, lumbar region] 08-20-2023 Chronic Substance-related disorders (2 sources) Nicotine dependence, unspecified, uncomplicated; Translations: [Nicotine dependence, cigarettes, uncomplicated] Onset: 03-08-20 Chronic Systemic lupus erythematosus and connective tissue disorders (2 sources) Other giant cell arteritis; 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] Onset: 10-15-19 23 Chronic Unclassified (1 source) SPONTANEOUS PNEUMO Onset: 03-08-20 Unclassified (1 source) CONTACT W/AND (SUSP) EXPOS COVID-19; Translations: [CONTACT W/AND (SUSP) EXPOS COVID-19] Onset: 10-24-20 22 Unclassified (1 source) THROMBOCYTOSIS UNSPECIFIED; Translations: [THROMBOCYTOSIS UNSPECIFIED] Onset: 04-04-20 Past or Other Problems Problem Classification Problem Date Documented Da te Episodic/Chronic Deficiency and other anemia (1 source) Other iron deficiency anemias; Translations: [OTHER IRON DEFICIENCY ANEMIAS] Onset: 05-01-2022 Episodic Nutritional deficiencies (1 source) Cachexia; Translations: [CACHEXIA] Onset: 04-04-2022 Episodic Other aftercare (1 source) MCFP (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; Translations: [NATUROPATHIC PHYSICIAN CURRENT USE OF ASPIRIN] Onset: 05-01-2022 Episodic Other aftercare (1 source) auger machine offbearer (current) use of antithrombotics/ant iplatelets; Translations: [SENIOR LIVING ANTITHROMBOT/ANTIPL ATLETS] Onset: 03-16-2022 Episodic Other circulatory disease (4 [...] HISTORY OF NICOTINE DEPEND] Onset: 05-01-2022 Episodic Procedures Date Procedure Procedure Detail Performing Clinician [...] Peripheral Vein, Percutaneous Approach DR ERASTO BURROUGHS Results Test Name Value Interpretation Reference Range Facility Consent for Procedure/Surger yon 11-12-2023 Consent for Procedure/Surgery [id number] Normal [facility] Patient Educationon 11-09-19 Patient Education Urology Urethral Dilation Urethral dilation [...] including vitamins, herbs, eye drops, creams, and pkco-llt-mbkqemv medicines. ? Any problems you or family [...] tells you to take them. ? Taking kzpg-gnq-evbkxuv medicines, vitamins, herbs, and supplements. General instructions [...] these instructions at home: Medicines ? Take aeeq-slw-ojkypzi and prescription medicines only as told by [...] to prevent or treat constipation: ? Take ixrb-afz-scxytux or prescription medicines. ? Eat foods that [...] You pa (more content not included)... Normal [facility] Urology Office/Clinic Noteon 11-09-2023 Urology Office/Clinic Note Chief Complaint IO UD HPI Staff 6m IO UD Dx: urethral stricture, chronic cystitis, asymptomatic microhematuria. *Started on Estradiol cream 2x weekly at time of last encounter. Pt used cream for a few weeks then forgot to keep using. Mild intermittent burning with urination. Weak stream, sometimes even a dribble. Denies visible blood in urine. History of Present Illness Tests reviewed: reviewed [...] PHQ Score Initial Depression Screen Score: 0 SCORE ROS - Provider Constitutional: denies weight loss, [...] HPI. Physical Exam Vitals & Measurements HR: 67(Peripheral) RR: 16 BP: 134/76 HT: 64 in HT: 163 cm WT: 49 kg WT: 107.8 lb BMI: 18.44 General Appearance: alert , no acute distress, well nourished, well developed female. Procedure Operative Information Anesthesia Type: Local Procedure: [...] is: Tight The Urethra was dilated to: 20-32 Afghan with sounds. Specimens Removed: None Postoperative Information Patient is discharged home. Follow up arranged. Assessment/Plan 1. Unspecified urethral stricture, female (N35.12: Postinfective urethral stricture, not elsewhere classified, female) S/p UD 09/19/21. S/p UD 10/10/22. PVR 04/16/23 0 ml. Last IO UD 04/16/23. Pt had IO UD today without complications. Dilated from 20-32 Fr. -Follow up in 6 months for repeat IO UD 2. Chronic cystitis (N30.20: Other chronic cystitis without hematuria) Has hx of uti with sepsis and in ICU on a vent. UA today shows large blood and large leuks. Started on Estradiol cream last visit. Reports she applied the cream for a few weeks, and then forgot to keep using it. 3. Asymptomatic microscopic hematuria (R31.21: Asymptomatic microscopic hematuria) Chronic. Denies gross hematuria. Follow-up With When Contact Information KEVIN SALDIVAR, Ihsan Wild, URL [facility] [place] [id number]- Additional Instructions: 6 mos w/ IO UD Patient Education Urethral Dilation I, Amanda Camara, personally scribed for Dr. Brown on 11/09/2023 12:14:21. . Documentation recorded by the scribe, Amanda Camara, accurately reflects the services(s) I performed and decisions made by me. Authenticated by Dr. Brown on 11/09/2023 12:24:43. Problem List/Past Medical History Ongoing Anticoagulated Asymptomatic [...] urethra, Lobectomy of lung, Stent placement. Medications Albuterol (Eqv-Proventil HFA) 90 mcg/inh inhalation aerosol aspirin, 81 mg, Oral, Daily atorvastatin 40 mg Tab, Oral, Daily Cymbalta, 90 mg, Oral, Daily estradiol 0.1 mg/g Vag Crm, 1 gm, Vaginal, MonFri, 4 refills GUAIFENESIN 600MG ER TABLETS, 0 Lunesta, 3 mg, Oral, Once a day (at bedtime) Lyrica, 100 mg, Oral, TID Melatonin, See Instructions Metoprolol tartrate 25 mg Tab, 25 mg= 1 tab(s), Oral, BID omeprazole 40 mg Cap-DR predniSONE, 10 mg, Oral, Daily Vitamin D3 (more content not included)... Normal [facility] Comment on above: Result Comment: Elec tronically Signed By: Ihsan BROWN MD\.br\Date and Time Signed: 11/09/23 12:24 EDT\.br\Electronically Co-Signed By: Amanda Camara.[email or web address]\Date and Time Co-Signed: 11/09/23 12:14 EDT Office Visiton 06-27-2023 Follow-up visit [id number] Covert,Lise Easton 1955 F Date Provider Department Center 06/27/2023 Andrew-JER NEFF Family History Problem Relation Age of Onset Stroke Father Stroke Father's Sister Coronary artery disease Paternal Grandmother Family Status - Relation Status Age at Father Father's Sister Paternal Grandmother Level of Service:[id number] [place] OFFICE/OUTPATIENT ESTABLISHED LOW MDM 20 MIN Normal [facility] 30on 06-06-2023 30 The patient is Moderately [...] resources Outcome: Adequate for Discharge Flowsheets (Taken 06/06/2023800) Discharge to home or other facility with appropriate resources: Identify barriers to discharge with patient and caregiver Arrange for needed discharge resources and transportation as appropriate Problem: Chronic Conditions and Co-morbidities Goal: Patient's chronic conditions and co-morbidity symptoms are monitored and maintained or improved Outcome: Adequate for Discharge Flowsheets (Taken 06/06/2023800) Care Plan - Patient's Chronic Conditions and Co-Morbidity Symptoms are Monitored and Maintained or Improved: Monitor and assess patient's chronic conditions and comorbid symptoms for stability, deterioration, or improvement Normal [facility] BASIC METABOLIC PANELon 11- Anion gap [Moles/Vol] 9 mmol/L Normal 7-20 [facility] Comment on above: Performed By: #### L [id number] #### [facility] ([facility]) [address] [place] [address] Calcium [Mass/Vol] 8.3 mg/dL Low 8.6-10.3 [facility] Comment on above: Performed By: #### L [id number] #### [facility] ([facility]) [address] [place] [address] Chloride [Moles/Vol] 99 mmol/L Normal 98-107 [facility] Comment on above: Performed By: #### L [id number] #### [facility] ([facility]) [address] [place] [address] CO2 [Moles/Vol] 26 mmol/L Normal 21-31 [facility] Comment on above: Performed By: #### L [id number] #### [facility] ([facility]) [address] [place] [address] Creatinine [Mass/Vol] 0.72 mg/dL Normal 0.60-1.20 [facility] Comment on above: Performed By: #### L [id number] #### [facility] ([facility]) [address] [place] [address] GLOMERULAR FILTRATION RATE ML/MIN/1.73 SQ M.PREDICTED 92.2 mL/min/1.73m*2 Normal >60.0 [facility] Comment on above: Result Comment: [facility]???s estimated glomerular filtration rate (eGFR) will no [...] group of individuals. Performed By: #### L [id number] #### [facility] ([facility]) [address] [place] [address] Glucose [Mass/Vol] 107 mg/dL High 70-100 [facility] Comment on above: Performed By: #### L [id number] #### [facility] ([facility]) [address] [place] [address] Potassium [Moles/Vol] 3.9 mmol/L Normal 3.5-5.1 [facility] Comment on above: Performed By: #### L [id number] #### [facility] ([facility]) [address] [place] [address] Sodium [Moles/Vol] 130 mmol/L Low 136-145 [facility] Comment on above: Performed By: #### L [id number] #### [facility] ([facility]) [address] [place] [address] Urea nitrogen [Mass/Vol] 12 mg/dL Normal 7-25 [facility] Comment on above: Performed By: #### L [id number] #### [facility] ([facility]) [address] [place] [address] UREA NITROGEN/CREATININE (MASS RATIO) IN SER/PLAS 16.7 Normal [facility] Comment on above: Performed By: #### L [id number] #### [facility] ([facility]) [address] [place] [address] CBCon 06-06-2023 Erythrocyte distribution width (RBC) [Ratio] 13.4 % Normal 11.5-15.0 [facility] Comment on above: Performed By: #### L [id number] #### [facility] ([facility]) [address] [place] [address] ERYTHROCYTE MEAN CORPUSCULAR HEMOGLOBIN CONCENTRATION (G/DL) BY AUTOMATED 33.4 g/dL Normal 32.0-35.0 [facility] Comment on above: Performed By: #### L [id number] #### [facility] ([facility]) [address] [place] [address] Hematocrit (Bld) [Volume fraction] 28.7 % Low 36.0-48.0 [facility] Comment on above: Performed By: #### L [id number] #### [facility] ([facility]) [address] [place] [address] Hemoglobin (Bld) [Mass/Vol] 9.6 g/dL Low 12.0-15.0 [facility] Comment on above: Performed By: #### L [id number] #### [facility] ([facility]) [address] [place] [address] MCH (RBC) [Entitic mass] 28.2 pg Normal 27.0-33.0 [facility] Comment on above: Performed By: #### L [id number] #### [facility] ([facility]) [address] [place] [address] MCV (RBC) [Entitic vol] 84.4 fL Normal 82.0-98.0 [facility] Comment on above: Performed By: #### L [id number] #### [facility] ([facility]) [address] [place] [address] PLATELETS (10*3/UL) IN BLOOD AUTOMATED COUNT 522 10*3/uL High 150-400 [facility] Comment on above: Performed By: #### L [id number] #### [facility] ([facility]) [address] [place] [address] RBC (Bld) [#/Vol] 3.40 10*6/uL Low 3.80-5.00 [facility] Comment on above: Performed By: #### L [id number] #### [facility] ([facility]) [address] [place] [address] WBC (Bld) [#/Vol] 10.31 10*3/uL Normal 4.00-10.60 [facility] Comment on above: Performed By: #### L [id number] #### [facility] ([facility]) [address] [place] [address] Letter (Out)on 06-06-2023 Letter (Out) [id number] Covert,Lise M 1955 F Date Provider Department [place] 06/06/2023 [id number], GENERIC PRO*INIT None Family History Problem Relation Age of Onset Stroke Father Stroke Father's Sister Coronary artery disease Paternal Grandmother Family Status - Relation Status Age at Father Father's Sister Paternal Grandmother Normal [facility] MAGNESIUMon 06-06-2023 Magnesium [Mass/Vol] 1.9 mg/dL Normal 1.9-2.7 [facility] Comment on above: Performed By: #### L [id number] #### [facility] ([facility]) [address] [place] [address] 30on 06-05-2023 30 The patient is Moderately Stable - Low risk of patient condition declining or worsening The patient's goals for the shift include comfort The clinical goals for the shift include VSS Normal [facility] 30 The patient is Moderately Stable - [...] injury: Assess patient frequently for physical needs [place] fall precautions as indicated by assessment Identify [...] and prevent overall improvement and discharge Normal [facility] 30 The patient is Moderately Unstable - Medium risk of patient condition declining or worsening The patient's goals for the shift include comfort The clinical goals for the shift include vss Over the shift, the patient did not make progress toward the following goals. Barriers to progression include . Recommendations to address these barriers include . Normal [facility] 30 Daily Case Managemen t Update Multidisciplinary rounds have been completed. Barriers to Discharge: Transfer from [place] for chest pain and NSTEMI. TTE ordered. Pending cardio rec. Trop was .06 down to .04. +UTI and Pneumonia. Continue IV Rocephin. Urine and blood cultures pending. Patient is from home with [facility] and 2L home 02 Diet: Dietary Orders [...] your name here: DANIEL GUERIN 06/05/23 1508 [facility] 30 The patient is Moderately Stable - Low risk of patient condition declining or worsening The patient's goals for the shift include comfort The clinical goals for the shift include stable vitals [facility] ANTI-XA (HEPARIN LEVEL)on HEPARIN UNFRACTIONATED (U/ML) IN PPP BY CHROMOGENIC METHOD <0.10 Invalid Interpretation Code 0.3-0.7 [facility] Comment on above: Order Comment: Check anti-Xa level every 6 hours while on heparin infusion, or per protocol. Result Comment: [place] roxaban and Apixaban will interfere with the anti Xa assay used to monitor UFH and LMWH. Performed By: #### L [id number] #### [facility] ([facility]) [address] [place] [address] HEPARIN UNFRACTIONATED (U/ML) IN PPP BY CHROMOGENIC METHOD <0.10 Invalid Interpretation Code 0.3-0.7 [facility] Comment on above: Order Comment: Check anti-Xa level every 6 hours while on heparin infusion, or per protocol. Result Comment: [place] roxaban and Apixaban will interfere with the anti Xa assay used to monitor UFH and LMWH. Performed By: #### L [id number] #### [facility] ([facility]) [address] [place] [address] APTTon 06-05-2023 ACTIVATED PARTIAL THROMBOPLASTIN TIME IN PPP BY COAGULATION ASSAY 38.8 Seconds High 25.0-35.0 [facility] Comment on above: Result Comment: Clin ical significance of the APTT is questionable in the presence of heparin. Performed By: #### L [id number] #### [facility] ([facility]) [address] [place] [address] B-TYPE NATRIURETIC PEPTIDEon 06-05-2023 Natriuretic peptide B (Bld) [Mass/Vol] 136 pg/mL High 0-100 [facility] Comment on above: Performed By: #### L [id number] ####[facility] ([facility])[address] [place] [address] BLOOD CULTUREon 06-05-2023 Bacteria identified Cx Nom (Bld) No growth at 5 days Normal [facility] Comment on above: Performed By: #### L [id number] ####[facility] ([facility])[address] [place] [address] Order Comment: From a different site than #1. CBC WITH AUTO DIFFERENTIALon 06-05-2023 Basophils (Bld) [#/Vol] 0.05 10*3/uL Normal 0.00-0.20 [facility] Comment on above: Performed By: #### L [id number] #### [facility] ([facility]) [address] [place] [address] Basophils/100 WBC (Bld) 0.3 % Normal 0.0-1.0 [facility] Comment on above: Performed By: #### L [id number] #### [facility] ([facility]) [address] [place] [address] Eosinophils (Bld) [#/Vol] 0.02 10*3/uL Normal 0.00-0.50 [facility] Comment on above: Performed By: #### L [id number] #### [facility] ([facility]) [address] [place] [address] Eosinophils/100 WBC (Bld) 0.1 % Normal 0.0-6.0 [facility] Comment on above: Performed By: #### L [id number] #### [facility] ([facility]) [address] [place] [address] Erythrocyte distribution width (RBC) [Ratio] 13.3 % Normal 11.5-15.0 [facility] Comment on above: Performed By: #### L [id number] #### [facility] ([facility]) [address] [place] [address] ERYTHROCYTE MEAN CORPUSCULAR HEMOGLOBIN CONCENTRATION (G/DL) BY AUTOMATED 32.4 g/dL Normal 32.0-35.0 [facility] Comment on above: Performed By: #### L [id number] #### [facility] ([facility]) [address] [place] [address] Hematocrit (Bld) [Volume fraction] 35.8 % Low 36.0-48.0 [facility] Comment on above: Performed By: #### L [id number] #### [facility] ([facility]) [address] [place] [address] Hemoglobin (Bld) [Mass/Vol] 11.6 g/dL Low 12.0-15.0 [facility] Comment on above: Performed By: #### L [id number] #### [facility] ([facility]) [address] [place] [address] Immature granulocytes (Bld) [#/Vol] 0.17 10*3/uL Normal 0.00-0.20 [facility] Comment on above: Performed By: #### L [id number] #### [facility] ([facility]) [address] [place] [address] Immature granulocytes/100 WBC (Bld) 1.0 % Normal 0.0-1.0 [facility] Comment on above: Performed By: #### L [id number] #### [facility] ([facility]) [address] [place] [address] Lymphocytes (Bld) [#/Vol] 0.80 10*3/uL Low 1.20-4.00 [facility] Comment on above: Performed By: #### L [id number] #### [facility] ([facility]) [address] [place] [address] Lymphocytes/100 WBC (Bld) 4.6 % Low 20.0-45.0 [facility] Comment on above: Performed By: #### L [id number] #### [facility] ([facility]) [address] [place] [address] MCH (RBC) [Entitic mass] 28.3 pg Normal 27.0-33.0 [facility] Comment on above: Performed By: #### L [id number] #### [facility] ([facility]) [address] [place] [address] MCV (RBC) [Entitic vol] 87.3 fL Normal 82.0-98.0 [facility] Comment on above: Performed By: #### L [id number] #### [facility] ([facility]) [address] [place] [address] Monocytes (Bld) [#/Vol] 0.78 10*3/uL Normal 0.10-1.00 [facility] Comment on above: Performed By: #### L [id number] #### [facility] ([facility]) [address] [place] [address] Monocytes/100 WBC (Bld) 4.5 % Low 5.0-12.0 [facility] Comment on above: Performed By: #### L [id number] #### [facility] ([facility]) [address] [place] [address] Neutrophils (Bld) [#/Vol] 15.46 10*3/uL High 1.60-7.60 [facility] Comment on above: Performed By: #### L [id number] #### [facility] ([facility]) [address] [place] [address] Neutrophils/100 WBC (Bld) 89.5 % High 40.0-72.0 [facility] Comment on above: Performed By: #### L [id number] #### [facility] ([facility]) [address] [place] [address] NRBC (PER 100 WBCS) BY AUTOMATED COUNT 0.0 % Normal 0 [facility] Comment on above: Performed By: #### L [id number] #### [facility] ([facility]) [address] [place] [address] PLATELETS (10*3/UL) IN BLOOD AUTOMATED COUNT 517 10*3/uL High 150-400 [facility] Comment on above: Performed By: #### L [id number] #### [facility] ([facility]) [address] [place] [address] RBC (Bld) [#/Vol] 4.10 10*6/uL Normal 3.80-5.00 [facility] Comment on above: Performed By: #### L [id number] #### [facility] ([facility]) [address] [place] [address] WBC (Bld) [#/Vol] 17.28 10*3/uL High 4.00-10.60 [facility] Comment on above: Performed By: #### L [id number] #### [facility] ([facility]) [address] [place] [address] COMPREHENSIVE METABOLIC PANE [place] 06-05-2023 ALANINE AMINOTRANSFERASE (SGPT) (U/L) IN SER/PLAS <3 Low 7-52 [facility] Comment on above: Performed By: #### L [id number] #### [facility] ([facility]) [address] [place] [address] Albumin [Mass/Vol] 3.1 g/dL Low 3.5-5.7 [facility] Comment on above: Performed By: #### L [id number] #### [facility] ([facility]) [address] [place] [address] ALP [Catalytic activity/Vol] 83 U/L Normal 34-104 [facility] Comment on above: Performed By: #### L [id number] #### [facility] ([facility]) [address] [place] [address] Anion gap [Moles/Vol] 13 mmol/L Normal 7-20 [facility] Comment on above: Performed By: #### L [id number] #### [facility] ([facility]) [address] [place] [address] AST [Catalytic activity/Vol] 14 U/L Normal 13-39 [facility] Comment on above: Performed By: #### L [id number] #### [facility] ([facility]) [address] [place] [address] Bilirubin [Mass/Vol] 0.3 mg/dL Normal 0.3-1.0 [facility] Comment on above: Performed By: #### L [id number] #### [facility] ([facility]) [address] [place] [address] Calcium [Mass/Vol] 8.9 mg/dL Normal 8.6-10.3 [facility] Comment on above: Performed By: #### L [id number] #### [facility] ([facility]) [address] [place] [address] Chloride [Moles/Vol] 98 mmol/L Normal 98-107 [facility] Comment on above: Performed By: #### L [id number] #### [facility] ([facility]) [address] [place] [address] CO2 [Moles/Vol] 25 mmol/L Normal 21-31 [facility] Comment on above: Performed By: #### L [id number] #### [facility] ([facility]) [address] [place] [address] Creatinine [Mass/Vol] 0.96 mg/dL Normal 0.60-1.20 [facility] Comment on above: Performed By: #### L [id number] #### [facility] ([facility]) [address] [place] [address] GLOMERULAR FILTRATION RATE ML/MIN/1.73 SQ M.PREDICTED 65.3 mL/min/1.73m*2 Normal >60.0 [facility] Comment on above: Result Comment: [facility]???s estimated glomerular filtration rate (eGFR) will no [...] group of individuals. Performed By: #### L [id number] #### [facility] ([facility]) [address] [place] [address] Glucose [Mass/Vol] 93 mg/dL Normal 70-100 [facility] Comment on above: Performed By: #### L [id number] #### [facility] ([facility]) [address] [place] [address] Potassium [Moles/Vol] 3.3 mmol/L Low 3.5-5.1 [facility] Comment on above: Performed By: #### L [id number] #### [facility] ([facility]) [address] [place] [address] Protein [Mass/Vol] 5.7 g/dL Low 6.0-8.3 [facility] Comment on above: Performed By: #### L [id number] #### [facility] ([facility]) [address] [place] [address] Sodium [Moles/Vol] 133 mmol/L Low 136-145 [facility] Comment on above: Performed By: #### L [id number] #### [facility] ([facility]) [address] [place] [address] Urea nitrogen [Mass/Vol] 12 mg/dL Normal 7-25 [facility] Comment on above: Performed By: #### L [id number] #### [facility] ([facility]) [address] [place] [address] UREA NITROGEN/CREATININE (MASS RATIO) IN SER/PLAS 12.5 Normal [facility] Comment on above: Performed By: #### L [id number] #### [facility] ([facility]) [address] [place] [address] CONSULTon 06-05-2023 CONSULT - Attestation signed by [...] Nausea / Vomiting and Urinary symptoms to [facility], there she was found to have UTI, labs showed WBC of 17 and she was started on IV antibiotics, work up also showed high sensitive troponin of 62, She doesn't report any chest pain, or discomfort. She was started on heparin drip and was transferred here to [facility]. Today she reports no chest pain or [...] colitis, Coronary artery disease, Depression, Diabetes mellitus ([facility]), Emphysema lung ([facility]), Fibromyalgia, High cholesterol, Hypertension, Neck pain, Pneumothorax, [...] 87 16 100 % -- -- 06/05/23 0228 -- -- -- 99 -- -- -- -- 06/05/23 0018 -- -- -- -- -- -- 1.626 [...] bilaterally. NEURO: (more content not included)... Normal [facility] ETHANOLon 06-05-2023 ETHANOL (MG/DL) IN SER/PLAS <10 Normal [facility] Comment on above: Performed By: #### L [id number] #### [facility] ([employer]) [address] [place] [address] ETHANOL CALCULATED (%) Normal [facility] Comment on above: Performed By: #### L [id number] #### [facility] ([employer]) [address] [place] [address] HEMOGLOBIN A1Con 06-05-2023 Glucose [Mass/Vol] 160 mg/dL Normal [facility] Comment on above: Performed By: #### L [id number] ####[facility] ([employer])[address] [place] [address] HbA1c (Bld) [Mass fraction] 7.2 % High 4.0-6.0 [facility] Comment on above: Performed By: #### L [id number] ####[facility] ([employer])[address] [place] [address] LACTIC ACID WITH 4 HOUR REFL EXon 06-05-2023 LACTATE (MMOL/L) IN SER/PLAS 1.1 mmol/L Normal 0.5-2.2 [facility] Comment on above: Performed By: #### L [id number] #### [facility] ([facility]) [address] [place] [address] LEGIONELLA ANTIGEN, URINEon 06-05-2023 LEGIONELLA AG, UR Negative Normal NEG [facility] Comment on above: Result Comment: L. p neumophila serogroup 1 antigen not detected. A negative result does not exclude infection with Leginella pnemophila serogroup 1 nor does it rule out other microbial-caused respiratory infections of disease caused by other serogroups of Legionella pneumophila. Test Performed by [facility] [employer] [address] [place] [id number] - Released 06/05/2023 12:36 Performed By: #### L [id number] ####[facility] [id number] [place] [address] LIPID PANELon 06-05-2023 CHOL/HDL 1.6 mg/dL Normal [facility] Comment on above: Performed By: #### L [id number] #### [facility] ([facility]) [address] [place] [address] Cholesterol [Mass/Vol] 74 mg/dL Low 120-200 [facility] Comment on above: Performed By: #### L [id number] #### [facility] ([facility]) [address] [place] [address] Magnesium [Mass/Vol] 65 mg/dL Normal 40-149 [facility] Comment on above: Result Comment: TRIG LYCERIDE REFERENCE RANGE: 20 YEARS AND OLDER CARDIOVASCULAR RISK LESS THAN 150 mg/dL LOW RISK 150 TO 199 mg/dL BORDERLINE RISK 200 mg/dL AND GREATER HIGH RISK Performed By: #### L [id number] #### [facility] ([facility]) [address] [place] [address] Magnesium [Mass/Vol] 14 mg/dL Normal 0-160 [facility] Comment on above: Performed By: #### L [id number] #### [facility] ([facility]) [address] [place] [address] Magnesium [Mass/Vol] 47 mg/dL Normal 23-92 [facility] Comment on above: Performed By: #### L [id number] #### [facility] ([facility]) [address] [place] [address] NON HDL CHOL. (LDL+VLDL) 27 Normal [facility] Comment on above: Performed By: #### L [id number] #### [facility] ([facility]) [address] [place] [address] TOTAL VLDL-C 13 mg/dL Normal 0-40 [facility] Comment on above: Performed By: #### L [id number] #### [facility] ([facility]) [address] [place] [address] MAGNESIUMon 06-05-2023 Magnesium [Mass/Vol] 1.1 mg/dL Low 1.9-2.7 [facility] Comment on above: Performed By: #### L [id number] ####[facility] [facility] [place] [address] PHOSPHORUSon 06-05-2023 Magnesium [Mass/Vol] 2.8 mg/dL Normal 2.5-5.0 [facility] Comment on above: Performed By: #### L [id number] ####[facility] ([facility])[address] [place] [address] PROTIME-INRon 06-05-2023 INR IN PPP BY COAGULATION ASSAY 1.25 High 0.90-1.10 [facility] Comment on above: Result Comment: ACCC P [...] 1995;[id number]. Performed By: #### L [id number] #### [facility] ([facility]) [address] [place] [address] PROTHROMBIN TIME (PT) IN PPP BY COAGULATION ASSAY 15.7 Seconds High 12.3-14.8 [facility] Comment on above: Performed By: #### L [id number] #### [facility] ([facility]) [address] [place] [address] TOXICOLOGY PANEL URINEon AMPHETAMINE+METHAMPHE TAMINE SCREEN (PRESENCE) IN URINE Negative Normal Negative [facility] Comment on above: Performed By: #### L [id number] ####[facility] ([facility])[address] [place] [address] BARBITURATES PRESENCE IN URINE BY SCREEN METHOD Negative Normal Negative [facility] Comment on above: Performed By: #### L [id number] ####[facility] ([facility])[address] [place] [address] Benzodiazepines Ql (U) Negative Normal Negative [facility] Comment on above: Performed By: #### L [id number] ####[facility] ([facility])[address] [place] [address] CANNABINOID (PRESENCE) IN URINE BY SCREEN METHOD Negative Normal Negative [facility] Comment on above: Performed By: #### L [id number] ####[facility] ([facility])[address] [place] [address] Cocaine Ql (U) Negative Normal Negative [facility] Comment on above: Performed By: #### L [id number] ####[facility] ([facility])[address] [place] [address] METHADONE (PRESENCE) IN URINE BY SCREEN METHOD Negative Normal Negative [facility] Comment on above: Performed By: #### L [id number] ####[facility] ([facility])[address] [facility] [place] [place] [address] OPIATES (PRESENCE) IN URINE BY SCREEN METHOD Positive Abnormal Negative [facility] Comment on above: Performed By: #### L [id number] ####[facility] ([facility])[address] [place] [address] PHENCYCLIDINE PRESENCE IN URINE BY SCREEN METHOD Negative Normal Negative [facility] Comment on above: Performed By: #### L [id number] ####[facility] ([facility])[address] [place] [address] Propoxyphene Screen Ql (U) Negative Normal Negative [facility] Comment on above: Performed By: #### L [id number] ####[facility] ([facility])[address] [place] [address] TRICYCLIC ANTIDEPRESSANTS (PRESENCE) IN URINE Negative Normal Negative [facility] Comment on above: Performed By: #### L [id number] ####[facility] ([facility])[address] [place] [address] TROPONIN Ion 06-05-2023 Troponin I.cardiac [Mass/Vol] 0.06 ng/mL High 0.00-0.04 [facility] Comment on above: Performed By: #### L [id number] #### [facility] ([facility]) [address] [place] [address] Troponin I.cardiac [Mass/Vol] 0.04 ng/mL Normal 0.00-0.04 [facility] Comment on above: Performed By: #### L [id number] #### [facility] ([facility]) [address] [place] [address] TSH3 REFLEX TO FT4on 023 THYROTROPIN (MIU/L) IN SER/PLAS BY DETECTION LIMIT <= 0.05 MIU/L 1.46 mIU/L Normal 0.34-5.60 [facility] Comment on above: Performed By: #### L [id number] #### [facility] ([facility]) [address] [place] [address] URINALYSIS MICROSCOPIC WITH REFLEX CULTUREon 06-05-2023 CASTS IN URINE Normal [facility] Comment on above: Performed By: #### L [id number] #### [facility] ([facility]) [address] [place] [address] CRYSTALS IN URINE Normal [facility] Comment on above: Performed By: #### L [id number] #### [facility] ([facility]) [address] [place] [address] OTHER MICROSCOPIC ELEMENTS Normal [facility] Comment on above: Performed By: #### L [id number] #### [facility] ([facility]) [address] [place] [address] RBC (#/HPF) IN URINE SEDIMENT 6-10 Abnormal None Seen [facility] Comment on above: Performed By: #### L [id number] #### [facility] ([facility]) [address] [place] [address] SQUAMOUS EPITHELIAL CELLS (#/HPF) IN URINE SEDIMENT Many Abnormal None Seen, Occasional [facility] Comment on above: Performed By: #### L [id number] #### [facility] ([facility]) [address] [place] [address] WBC (LEUKOCYTE) (#/HPF) IN URINE SEDIMENT >100 Abnormal None Seen [facility] Comment on above: Performed By: #### L [id number] #### [facility] ([facility]) [address] [place] [address] URINALYSIS WITH REFLEX CULTU REon 06-05-2023 BILIRUBIN, TOTAL PRESENCE IN URINE Negative Normal Negative [facility] Comment on above: Performed By: #### L [id number] #### [facility] ([facility]) [address] [place] [address] Clarity (U) Clear Normal Clear [facility] Comment on above: Performed By: #### L [id number] #### [facility] ([facility]) [address] [place] [address] Color (U) Yellow Normal Yellow [facility] Comment on above: Performed By: #### L [id number] #### [facility] ([facility]) [address] [place] [address] Glucose (U) [Mass/Vol] Negative Normal Negative [facility] Comment on above: Performed By: #### L [id number] #### [facility] ([facility]) [address] [place] [address] HEMOGLOBIN PRESENCE IN URINE Moderate Abnormal Negative [facility] Comment on above: Performed By: #### L [id number] #### [facility] ([facility]) [address] [place] [address] Ketones Ql (U) Trace Abnormal Negative [facility] Comment on above: Performed By: #### L [id number] #### [facility] ([facility]) [address] [place] [address] LEUKOCYTE ESTERASE PRESENCE IN URINE BY TEST STRIP Large Abnormal Negative [facility] Comment on above: Performed By: #### L [id number] #### [facility] ([facility]) [address] [place] [address] NITRITE PRESENCE IN URINE Positive Abnormal Negative [facility] Comment on above: Performed By: #### L [id number] #### [facility] ([facility]) [address] [place] [address] pH (U) 6.0 [pH] Normal 5.0-8.0 [facility] Comment on above: Performed By: #### L [id number] #### [facility] ([facility]) [address] [place] [address] Protein (U) [Mass/Vol] 30 mg/dL Abnormal Negative [facility] Comment on above: Performed By: #### L [id number] #### [facility] ([facility]) [address] [place] [address] Specific gravity (U) [Rel density] 1.012 Low 1.015-1.020 [facility] Comment on above: Performed By: #### L [id number] #### [facility] ([facility]) [address] [place] [address] Consent for Procedure/Surger yon 04-17-2023 Consent for Procedure/Surgery [id number] Normal [facility] Patient Educationon 04-16-20 23 Patient Education Urology Urethral Dilation Urethral [...] including vitamins, herbs, eye drops, creams, and unru-bmn-hbqvxib medicines. ? Any problems you or family [...] tells you to take them. ? Taking qcou-jus-lsewelr medicines, vitamins, herbs, and supplements. General instructions [...] these instructions at home: Medicines ? Take rhns-cqa-ertvgeg and prescription medicines only as told by [...] to prevent or treat constipation: ? Take mryk-hwp-sjsiasv or prescription medicines. ? Eat foods that [...] You pa (more content not included)... Normal [facility] Urology Office/Clinic Noteon 04-16-2023 Urology Office/Clinic [...] inflamed The Urethra was dilated to: 20-30 Afghan with sounds. Specimens Removed: None Postoperative Information [...] given today. Follow-up With When Contact Information KEVIN SALDIVAR, WOLFGANG Morrell In 4 months [facility] [address], [place] [address]- Additional Instructions: w/UD Patient Education Urethral Dilation [...] Procedure/Surgical Histo (more content not included)... Normal [facility] Comment on above: Result Comment: Elec [...] by: MIGUE REYNOSO Date: 2022-10-31 17:34 Normal [facility] HEMOGLOBINon 10-31-2022 Hemoglobin (Bld) [Mass/Vol] 11.8 g/dL Critically low 12.0-16.0 [facility] Comment on above: Performed By: #### C VDTB #### [facility] [address] [place] [address] Dr. Kayley Hatfield BUNon 10-10-2022 Urea nitrogen [Mass/Vol] 13.0 mg/dL Normal 7.0-18.0 [facility] Comment on above: Performed By: #### L DH #### [facility] [address] [place] [address] Dr. Kayley Hatfield CALCIUMon 10-10-2022 Calcium [Mass/Vol] 9.7 mg/dL Normal 8.5-10.1 [facility] Comment on above: Performed By: #### L DH #### [facility] [address] [place] [address] Dr. Kayley Hatfield CREATININEon 10-10-2022 Creatinine [Mass/Vol] 1.19 mg/dL Critically high 0.55-1.02 [facility] Comment on above: Performed By: #### L DH #### [facility] [address] [place] [address] Dr. Kayley Hatfield EGFR-AF MONEGASQUE 55 mL/min/1.73m2 Critically low >=60 [facility] Comment on above: Performed By: #### L DH #### [facility] [address] [place] [address] Dr. Kayley Hatfield EGFR-NON AF MONEGASQUE 46 mL/min/1.73m2 Critically low >=60 [facility] Comment on above: Performed By: #### L DH #### [facility] [address] [address] [address] Kayley Hatfield CRPon 10-10-2022 CRP [Mass/Vol] mg/L Normal <=1.0 [facility] Comment on above: Performed By: #### L DH #### [facility] [address] [place] [address] Dr. Kayley Hatfield MAGNESIUMon 10-10-2022 Magnesium [Mass/Vol] 1.7 mg/dL Critically low 1.8-2.4 [facility] Comment on above: Performed By: #### L DH #### [facility] [address] [place] [address] Dr. Kayley Hatfield PHOSPHORUSon 10-10-2022 Phosphate [Mass/Vol] 4.0 mg/dL Normal 2.6-4.7 [facility] Comment on above: Performed By: #### L DH #### [facility] [address] [place] [address] Dr. Kayley Hatfield SED RATE SAVANNAHERGRENon 2022 SED RATE 25 mm/hr Normal <=30 [facility] Comment on above: Performed By: #### P RTELEC #### [facility] [address] [place] [address] Dr. Kayley Hatfield Office Visiton 08-14-2022 Follow-up visit [id number] Covert,Lise Easton 1955 F Date Provider Department Center 08/14/2022 JER LARRY [facility] Family History Problem Relation Age of Onset Stroke Father Stroke Father's Sister Coronary artery disease Paternal Grandmother Family Status - Relation Status Age at Father Father's Sister Paternal Grandmother Level of Service:[address] [place] OFFICE/OUTPATIENT ESTABLISHED MOD MDM 30-39 MIN Reason for Visit and Comments: Coronary Artery Disease [187] Hyperlipidemia [182] Normal [facility] CBC AUTO DIFFon 05-01-2022 BASO # 0.1 103/ul Normal 0.0-0.1 [facility] Comment on above: Performed By: #### P RBC #### [facility] [address] [place] [address] Dr. Kayley Hatfield Basophils/100 WBC (Bld) 0.5 % Normal 0.2-2.0 [facility] Comment on above: Performed By: #### P RBC #### [facility] [address] [place] [address] Dr. Kayley Hatfeild EO # 0.2 103/ul Normal 0.0-0.7 [facility] Comment on above: Performed By: #### P RBC #### [facility] [address] [place] [address] Dr. Kayley Hatfield Eosinophils/100 WBC (Bld) 1.2 % Normal 0.9-7.0 [facility] Comment on above: Performed By: #### P RBC #### [facility] [address] [place] [address] Dr. Kayley Hatfield Erythrocyte distribution width (RBC) [Ratio] 14.9 % Normal 11.0-15.0 [facility] Comment on above: Performed By: #### P RBC #### [facility] [address] [place] [address] Dr. Kayley Hatfield Hematocrit (Bld) [Volume fraction] 34.2 % Critically low 36.0-48.0 [facility] Comment on above: Performed By: #### P RBC #### [facility] [address] [place] [address] Dr. Kayley Hatfield Hemoglobin (Bld) [Mass/Vol] 10.3 g/dL Critically low 12.0-16.0 [facility] Comment on above: Performed By: #### P RBC #### [facility] [address] [place] [address] Dr. Kayley Hatfield IG # 0.19 10e3/ul Critically high 0.00-0.03 [facility] Comment on above: Performed By: #### P RBC #### [facility] [address] [place] [address] Dr. Kayley Hatfield IG % 1.3 % Critically high 0.0-0.5 [facility] Comment on above: Performed By: #### P RBC #### [facility] [address] [place] [address] Dr. Kayley Hatfield LYMPH # 1.1 103/ul Critically low 1.2-3.8 [facility] Comment on above: Performed By: #### P RBC #### [facility] [address] [place] [address] Dr. Kayley Hatfield Lymphocytes/100 WBC (Bld) 7.3 % Critically low 20.5-60.0 [facility] Comment on above: Performed By: #### P RBC #### [facility] [address] [place] [address] Dr. Kayley Hatfield MANUAL DIFF REQ NO Normal [facility] Comment on above: Performed By: #### P RBC #### [facility] [address] [place] [address] Dr. Kayley Hatfield MCH (RBC) [Entitic mass] 28.4 pg Normal 26.7-34.0 [facility] Comment on above: Performed By: #### P RBC #### [facility] [address] [place] [address] Dr. Kayley Hatfield MCHC (RBC) [Mass/Vol] 30.1 g/dL Normal 29.9-35.2 [facility] Comment on above: Performed By: #### P RBC #### [facility] [address] [place] [address] Dr. Kayley Hatfield MCV (RBC) [Entitic vol] 94.2 fL Normal 81.0-99.0 [facility] Comment on above: Performed By: #### P RBC #### [facility] [address] [place] [address] Dr. Kayley Hatfield MONO # 0.6 103/ul Normal 0.3-0.8 [facility] Comment on above: Performed By: #### P RBC #### [facility] [address] [place] [address] Dr. Kayley Hatfield Monocytes/100 WBC (Bld) 4.0 % Normal 1.7-12.0 [facility] Comment on above: Performed By: #### P RBC #### [facility] [address] [place] [address] Dr. Kayley Hatfield NEUT # 12.5 103/ul Critically high 1.4-6.5 [facility] Comment on above: Performed By: #### P RBC #### [facility] [address] [address] [address] Kayley Hatfield Neutrophils/100 WBC (Bld) 85.7 % Critically high 43.0-75.0 [facility] Comment on above: Performed By: #### P RBC #### [facility] [address] [address] [address] Kayley Hatfield Platelet mean volume (Bld) [Entitic vol] 8.5 fL Critically low 9.5-13.5 [facility] Comment on above: Performed By: #### P RBC #### [facility] [address] [place] [address] Dr. Kayley Hatfield PLT 574 103/ul Critically high 150-450 [facility] Comment on above: Performed By: #### P RBC #### [facility] [address] [place] [address] Dr. Kayley Hatfield RBC 3.63 106/ul Critically low 4.20-5.40 [facility] Comment on above: Performed By: #### P RBC #### [facility] [address] [place] [address] Dr. Kayley Hatfield WBC 14.6 103/ul Critically high 4.0-11.0 [facility] Comment on above: Performed By: #### P RBC #### [facility] [address] [place] [address] Dr. Kayley Hatfield MAGNESIUMon 05-01-2022 Magnesium [Mass/Vol] 2.1 mg/dL Normal 1.8-2.4 [facility] Comment on above: Performed By: #### O BSCRN #### [facility] [address] [place] [address] Dr. Kayley Hatfield PROF CHEM 8 (BAS METB)on Anion gap [Moles/Vol] 8.6 mmol/L Normal [facility] Comment on above: Performed By: #### O BSCRN #### [facility] [address] [place] [address] Dr. Kayley Hatfield Calcium [Mass/Vol] 9.0 mg/dL Normal 8.5-10.1 [facility] Comment on above: Performed By: #### O BSCRN #### [facility] [address] [address] [address] Kayley Hatfield Chloride [Moles/Vol] 101 mmol/L Normal 98-107 [facility] Comment on above: Performed By: #### O BSCRN #### [facility] [address] [address] [address] Kayley Hatfield CO2 [Moles/Vol] 33.0 mmol/L Critically high 21.0-32.0 [facility] Comment on above: Performed By: #### O BSCRN #### [facility] [address] [place] [address] Dr. Kayley Hatfield Creatinine [Mass/Vol] 0.94 mg/dL Normal 0.55-1.02 [facility] Comment on above: Performed By: #### O BSCRN #### [facility] [address] [place] [address] Dr. Kayley Hatfield EGFR-AF MONEGASQUE >60 Normal >=60 [facility] Comment on above: Performed By: #### O BSCRN #### [facility] [address] [place] [address] Dr. Kayley Hatfield EGFR-NON AF MONEGASQUE >60 Normal >=60 [facility] Comment on above: Performed By: #### O BSCRN #### [facility] [address] [address] [address] Kayley Hatfield Glucose [Mass/Vol] 143 mg/dL Critically high 74-106 [facility] Comment on above: Performed By: #### O BSCRN #### [facility] [address] [place] [address] Dr. Kayley Hatfield Potassium [Moles/Vol] 4.6 mmol/L Normal 3.5-5.1 [facility] Comment on above: Performed By: #### O BSCRN #### [facility] [address] [place] [address] Dr. Kayley Hatfield Sodium [Moles/Vol] 138 mmol/L Normal 136-145 [facility] Comment on above: Performed By: #### O BSCRN #### [facility] [address] [place] [address] Dr. Kayley Hatfield Urea nitrogen [Mass/Vol] 15.0 mg/dL Normal 7.0-18.0 [facility] Comment on above: Performed By: #### O BSCRN #### [facility] [address] [place] [address] Dr. Kayley Hatfield Urea nitrogen/Creatinine [Mass ratio] 16.0 mg/mg Normal [facility] Comment on above: Performed By: #### O BSCRN #### [facility] [address] [place] [address] Dr. Kayley Hatfield CBC AUTO DIFFon 04-26-2022 BASO # 0.1 103/ul Normal 0.0-0.1 [facility] Comment on above: Performed By: #### P RBC #### [facility] [address] [place] [address] Dr. Kayley Hatfield Basophils/100 WBC (Bld) 0.5 % Normal 0.2-2.0 [facility] Comment on above: Performed By: #### P RBC #### [facility] [address] [place] [address] Dr. Kayley Hatfield EO # 0.2 103/ul Normal 0.0-0.7 [facility] Comment on above: Performed By: #### P RBC #### [facility] [address] [place] [address] Dr. Kayley Hatfield Eosinophils/100 WBC (Bld) 1.8 % Normal 0.9-7.0 [facility] Comment on above: Performed By: #### P RBC #### [facility] [address] [place] [address] Dr. Kayley Hatfield Erythrocyte distribution width (RBC) [Ratio] 14.7 % Normal 11.0-15.0 [facility] Comment on above: Performed By: #### P RBC #### [facility] [address] [place] [address] Dr. Kayley Hatfield Hematocrit (Bld) [Volume fraction] 32.0 % Critically low 36.0-48.0 [facility] Comment on above: Performed By: #### P RBC #### [facility] [address] [place] [address] Dr. Kayley Hatfield Hemoglobin (Bld) [Mass/Vol] 9.9 g/dL Critically low 12.0-16.0 [facility] Comment on above: Performed By: #### P RBC #### [facility] [address] [address] [address] Kayley Hatfield IG # 0.07 10e3/ul Critically high 0.00-0.03 [facility] Comment on above: Performed By: #### P RBC #### [facility] [address] [place] [address] Dr. Kayley Hatfield IG % 0.6 % Critically high 0.0-0.5 [facility] Comment on above: Performed By: #### P RBC #### [facility] [address] [place] [address] Dr. Kayley Hatfield LYMPH # 1.2 103/ul Normal 1.2-3.8 [facility] Comment on above: Performed By: #### P RBC #### [facility] [address] [place] [address] Dr. Kayley Haftield Lymphocytes/100 WBC (Bld) 10.9 % Critically low 20.5-60.0 [facility] Comment on above: Performed By: #### P RBC #### [facility] [address] [place] [address] Dr. Kayley Hatfield MANUAL DIFF REQ NO Normal [facility] Comment on above: Performed By: #### P RBC #### [facility] [address] [place] [address] Dr. Kayley Hatfield MCH (RBC) [Entitic mass] 28.4 pg Normal 26.7-34.0 [facility] Comment on above: Performed By: #### P RBC #### [facility] [address] [place] [address] Dr. Kayley Hatfield MCHC (RBC) [Mass/Vol] 30.9 g/dL Normal 29.9-35.2 [facility] Comment on above: Performed By: #### P RBC #### [facility] [address] [address] [address] Kayley Hatfield MCV (RBC) [Entitic vol] 92.0 fL Normal 81.0-99.0 [facility] Comment on above: Performed By: #### P RBC #### [facility] [address] [address] [address] Kayley Hatfield MONO # 1.4 103/ul Critically high 0.3-0.8 [facility] Comment on above: Performed By: #### P RBC #### [facility] [address] [place] [address] Dr. Kayley Hatfield Monocytes/100 WBC (Bld) 11.9 % Normal 1.7-12.0 [facility] Comment on above: Performed By: #### P RBC #### [facility] [address] [place] [address] Dr. Kayley aHtfield NEUT # 8.4 103/ul Critically high 1.4-6.5 [facility] Comment on above: Performed By: #### P RBC #### [facility] [address] [place] [address] Dr. Kayley Hatfield Neutrophils/100 WBC (Bld) 74.3 % Normal 43.0-75.0 [facility] Comment on above: Performed By: #### P RBC #### [facility] [address] [address] [address] Kayley Hatfield Platelet mean volume (Bld) [Entitic vol] 8.8 fL Critically low 9.5-13.5 [facility] Comment on above: Performed By: #### P RBC #### [facility] [address] [place] [address] Dr. Kayley Hatfield PLT 953 103/ul Critically high 150-450 [facility] Comment on above: Performed By: #### P RBC #### [facility] [address] [place] [address] Dr. Kayley Hatfield RBC 3.48 106/ul Critically low 4.20-5.40 [facility] Comment on above: Performed By: #### P RBC #### [facility] [address] [place] [address] Dr. Kayley Hatfield WBC 11.3 103/ul Critically high 4.0-11.0 [facility] Comment on above: Performed By: #### P RBC #### [facility] [address] [place] [address] Dr. Kayley Hatfield POINT OF CARE GLUCOSEon 04-08 Glucose [Mass/Vol] 225 mg/dL Critically high 74-106 [facility] Comment on above: Performed By: #### B [id number] #### [facility] [address] [place] [address] Dr. Kayley Hatfield PROF CHEM 8 (BAS METB)on Anion gap [Moles/Vol] 10.7 mmol/L Normal [facility] Comment on above: Performed By: #### P RBC #### [facility] [address] [place] [address] Dr. Kayley Hatfield Calcium [Mass/Vol] 9.2 mg/dL Normal 8.5-10.1 [facility] Comment on above: Performed By: #### P RBC #### [facility] [address] [place] [address] Dr. Kayley Hatfield Chloride [Moles/Vol] 103 mmol/L Normal 98-107 [facility] Comment on above: Performed By: #### P RBC #### [facility] [address] [place] [address] Dr. Kayley Hatfield CO2 [Moles/Vol] 29.2 mmol/L Normal 21.0-32.0 [facility] Comment on above: Performed By: #### P RBC #### [facility] [address] [place] [address] Dr. Kayley Hatfield Creatinine [Mass/Vol] 0.85 mg/dL Normal 0.55-1.02 [facility] Comment on above: Performed By: #### P RBC #### [facility] [address] [place] [address] Dr. Kayley Hatfield EGFR-AF MONEGASQUE >60 Normal >=60 [facility] Comment on above: Performed By: #### P RBC #### [facility] [address] [address] [address] Kayley Hatfield EGFR-NON AF MONEGASQUE >60 Normal >=60 [facility] Comment on above: Performed By: #### P RBC #### [facility] [address] [address] [address] Kayley Hatfield Glucose [Mass/Vol] 81 mg/dL Normal 74-106 [facility] Comment on above: Performed By: #### P RBC #### [facility] [address] [address] [address] Kayley Hatfield Potassium [Moles/Vol] 3.9 mmol/L Normal 3.5-5.1 [facility] Comment on above: Performed By: #### P RBC #### [facility] [address] [address] [address] Kayley Hatfield Sodium [Moles/Vol] 139 mmol/L Normal 136-145 [facility] Comment on above: Performed By: #### P RBC #### [facility] [address] [address] [address] Kayley Hatfield Urea nitrogen [Mass/Vol] 9.0 mg/dL Normal 7.0-18.0 [facility] Comment on above: Performed By: #### P RBC #### [facility] [address] [place] [address] Dr. Kayley Hatfield Urea nitrogen/Creatinine [Mass ratio] 10.6 mg/mg Normal [facility] Comment on above: Performed By: #### P RBC #### [facility] [address] [address] [address] Kayley Hatfield XR CHEST 2 Von [...] by: MIGUE REYNOSO Date: 2022-04-26 09:59 Normal [facility] BNPon 04-25-2022 Natriuretic peptide B (Bld) [Mass/Vol] 234.0 pg/mL Normal <=900.0 [facility] Comment on above: Performed By: #### P RTELEC #### [facility] [address] [place] [address] Dr. Kayley Hatfield CBC AUTO DIFFon 04-25-2022 BASO # 0.1 103/ul Normal 0.0-0.1 [facility] Comment on above: Performed By: #### P RBC #### [facility] [address] [place] [address] Dr. Kayley Hatfield Basophils/100 WBC (Bld) 0.4 % Normal 0.2-2.0 [facility] Comment on above: Performed By: #### P RBC #### [facility] [address] [place] [address] Dr. Kayley Hatfield EO # 0.2 103/ul Normal 0.0-0.7 [facility] Comment on above: Performed By: #### P RBC #### [facility] [address] [address] [address] Kayley Hatfield Eosinophils/100 WBC (Bld) 1.0 % Normal 0.9-7.0 [facility] Comment on above: Performed By: #### P RBC #### [facility] [address] [place] [address] Dr. Kayley Hatfield Erythrocyte distribution width (RBC) [Ratio] 14.8 % Normal 11.0-15.0 [facility] Comment on above: Performed By: #### P RBC #### [facility] [address] [address] [address] Kayley Hatfield Hematocrit (Bld) [Volume fraction] 35.4 % Critically low 36.0-48.0 [facility] Comment on above: Performed By: #### P RBC #### [facility] [address] [address] [address] Kayley Hatfield Hemoglobin (Bld) [Mass/Vol] 10.9 g/dL Critically low 12.0-16.0 [facility] Comment on above: Performed By: #### P RBC #### [facility] [address] [address] [address] Kayley Hatfield IG # 0.08 10e3/ul Critically high 0.00-0.03 [facility] Comment on above: Performed By: #### P RBC #### [facility] [address] [address] [address] Kayley Hatfield IG % 0.5 % Normal 0.0-0.5 [facility] Comment on above: Performed By: #### P RBC #### [facility] [address] [address] [address] Kayley Hatfield LYMPH # 1.2 103/ul Normal 1.2-3.8 [facility] Comment on above: Performed By: #### P RBC #### [facility] [address] [address] [address] Kayley Hatfield Lymphocytes/100 WBC (Bld) 7.4 % Critically low 20.5-60.0 [facility] Comment on above: Performed By: #### P RBC #### [facility] [address] [address] [address] Kayley Hatfield MANUAL DIFF REQ NO Normal [facility] Comment on above: Performed By: #### P RBC #### [facility] [address] [place] [address] Dr. Kayley Hatfield MCH (RBC) [Entitic mass] 27.9 pg Normal 26.7-34.0 [facility] Comment on above: Performed By: #### P RBC #### [facility] [address] [address] [address] Kayley Hatfield MCHC (RBC) [Mass/Vol] 30.8 g/dL Normal 29.9-35.2 [facility] Comment on above: Performed By: #### P RBC #### [facility] [address] [address] [address] Kayley Hatfield MCV (RBC) [Entitic vol] 90.5 fL Normal 81.0-99.0 [facility] Comment on above: Performed By: #### P RBC #### [facility] [address] [address] [address] Kayley Hatfield MONO # 1.5 103/ul Critically high 0.3-0.8 [facility] Comment on above: Performed By: #### P RBC #### [facility] [address] [address] [address] Kayley Hatfield Monocytes/100 WBC (Bld) 8.7 % Normal 1.7-12.0 [facility] Comment on above: Performed By: #### P RBC #### [facility] [address] [address] [address] Kayley Hatfield NEUT # 13.8 103/ul Critically high 1.4-6.5 [facility] Comment on above: Performed By: #### P RBC #### [facility] [address] [address] [address] Kayley Hatfield Neutrophils/100 WBC (Bld) 82.0 % Critically high 43.0-75.0 [facility] Comment on above: Performed By: #### P RBC #### [facility] [address] [address] [address] Kayley Hatfield Platelet mean volume (Bld) [Entitic vol] 8.9 fL Critically low 9.5-13.5 [facility] Comment on above: Performed By: #### P RBC #### [facility] [address] [address] [address] Kayley Hatfield PLT 1076 103/ul Critically high 150-450 [facility] Comment on above: Performed By: #### P RBC #### [facility] [address] [place], [place] [address] Dr. Kayley Hatfield RBC 3.91 106/ul Critically low 4.20-5.40 [facility] Comment on above: Performed By: #### P RBC #### [facility] [address] [place], [place] [address] Dr. Kayley Hatfield WBC 16.8 103/ul Critically high 4.0-11.0 [facility] Comment on above: Performed By: #### P RBC #### [facility] [address] [place], [place] [address] HEAD WO CONon [...] by: MIGUE REYNOSO Date: 2022-04-25 14:59 Normal [facility] CTA CHEST WO W CONon 022 CTA [...] MIGUE REYNOSO Date: 2022-04-25 15:18 Normal [facility]08 SARS-CoV-2 (COVID-19) RNA ELBA+probe Ql (Unsp spec) Not detected Normal NOT DETECTED [facility] Comment on above: Result Comment: When diagnostic [...] for this test is supported by the [employer]'s declaration that [...] used). Performed By: #### C VDTBH #### [facility] [address] [place] [address] Dr. Kayley Hatfield ER URINE PROFILEon 2 Bilirubin Ql (U) Negative Normal NEGATIVE [facility] Comment on above: Performed By: #### C VDTBH #### [facility] [address] [place] [address] Dr. Kayley Hatfield Clarity (U) CLEAR Normal CLEAR [facility] Comment on above: Performed By: #### C VDTBH #### [facility] [address] [place] [address] Dr. Kayley Hatfield Color (U) LT. YELLOW Normal YELLOW [facility] Comment on above: Performed By: #### C VDTBH #### [facility] [address] [place] [address] Dr. Kayley Hatfield ERUAHD A micrscopic examination will be performed if indicated. Normal [facility] Comment on above: Performed By: #### C VDTBH #### [facility] [address] [place] [address] Dr. Kayley Hatfield Glucose Ql (U) Negative Normal NEGATIVE [facility] Comment on above: Performed By: #### C VDTBH #### [facility] [address] [place] [address] Dr. Kayley Hatfield Hemoglobin Ql (U) TRACE-INTACT Abnormal NEGATIVE [facility] Comment on above: Performed By: #### C VDTBH #### [facility] [address] [place] [address] Dr. Kayley Hatfield Ketones Ql (U) Negative Normal NEGATIVE [facility] Comment on above: Performed By: #### C VDTBH #### [facility] [address] [place] [address] Dr. Kayley Hatfield LEUKOCYTES Negative Normal NEGATIVE [facility] Comment on above: Performed By: #### C VDTBH #### [facility] [address] [place] [address] Dr. Kayley Hatfield Nitrite Ql (U) Negative Normal NEGATIVE [facility] Comment on above: Performed By: #### C VDTBH #### [facility] [address] [place] [address] Dr. Kayley Hatfield pH (U) 8.0 [pH] Normal 5-9 [facility] Comment on above: Performed By: #### C VDTBH #### [facility] [address] [place] [address] Dr. Kayley Hatfield SPEC GRAVITY 1.010 Normal 1.005-<=1.025 [facility] Comment on above: Performed By: #### C VDTBH #### [facility] [address] [place] [address] Dr. Kayley Hatfield UA PROTEIN Negative Normal NEGATIVE/ TRACE [facility] Comment on above: Performed By: #### C VDTBH #### [facility] [address] [place] [address] Dr. Kayley Hatfield UR MICRO IND INDICATED Normal [facility] Comment on above: Performed By: #### C VDTBH #### [facility] [address] [place] [address] Dr. Kayley Hatfield Urobilinogen Qn (U) 0.2 {Lu'U}/dL Normal 0.2 - 1. 0 [facility] Comment on above: Performed By: #### C VDTBH #### [facility] [address] [place] [address] Dr. Kayley Hatfield LACTATE/LACTIC ACIDon 2021 Lactate [Moles/Vol] 1.1 mmol/L Normal 0.4-1.9 [facility] Comment on above: Performed By: #### P RTELEC #### [facility] [address] [place] [address] Dr. Kayley Hatfield PH VENOUS BLOODon 04-25-2022 PCO2 VENOUS 54.5 mmHg Critically high 40.0-52.0 [facility] Comment on above: Performed By: #### L DH #### [facility] [address] [place] [address] Dr. Kayley Hatfield pH VENOUS 7.385 Normal 7.330-7.430 [facility] Comment on above: Performed By: #### L DH #### [facility] [address] [place] [address] Dr. Kayley Hatfield POINT OF CARE GLUCOSEon 04-08 Glucose [Mass/Vol] 116 mg/dL Critically high 74-106 [facility] Comment on above: Performed By: #### O BSCRN #### [facility] [address] [place] [address] Dr. Kayley Hatfield Glucose [Mass/Vol] 91 mg/dL Normal 74-106 [facility] Comment on above: Performed By: #### O BSCRN #### [facility] [address] [place] [address] Dr. Kayley Hatfield PROF 14(COMP METB)on 022 Albumin [Mass/Vol] 2.7 g/dL Critically low 3.4-5.0 [facility] Comment on above: Performed By: #### O BSCRN #### [facility] [address] [place] [address] Dr. Kayley Hatfield Albumin/Globulin [Mass ratio] 0.6 {ratio} Normal [facility] Comment on above: Performed By: #### O BSCRN #### [facility] [address] [place] [address] Dr. Kayley Hatfield ALP [Catalytic activity/Vol] 132 U/L Critically high 46-116 [facility] Comment on above: Performed By: #### O BSCRN #### [facility] [address] [place] [address] Dr. Kayley Hatfield ALT [Catalytic activity/Vol] 21 U/L Normal 14-59 [facility] Comment on above: Performed By: #### O BSCRN #### [facility] [address] [place] [address] Dr. Kayley Hatfield Anion gap [Moles/Vol] 8.1 mmol/L Normal [facility] Comment on above: Performed By: #### O BSCRN #### [facility] [address] [place] [address] Dr. Kayley Hatfield AST [Catalytic activity/Vol] 23 U/L Normal 15-37 [facility] Comment on above: Performed By: #### O BSCRN #### [facility] [address] [place] [address] Dr. Kayley Hatfield Bilirubin [Mass/Vol] 0.3 mg/dL Normal 0.2-1.0 [facility] Comment on above: Performed By: #### O BSCRN #### [facility] [address] [place] [address] Dr. Kayley Hatfield Calcium [Mass/Vol] 9.4 mg/dL Normal 8.5-10.1 [facility] Comment on above: Performed By: #### O BSCRN #### [facility] [address] [place] [address] Dr. Kayley Hatfield Chloride [Moles/Vol] 100 mmol/L Normal 98-107 [facility] Comment on above: Performed By: #### O BSCRN #### [facility] [address] [place] [address] Dr. Kayley Hatfield CO2 [Moles/Vol] 31.8 mmol/L Normal 21.0-32.0 [facility] Comment on above: Performed By: #### O BSCRN #### [facility] [address] [place] [address] Dr. Kayley Hatfield Creatinine [Mass/Vol] 0.79 mg/dL Normal 0.55-1.02 [facility] Comment on above: Performed By: #### O BSCRN #### [facility] [address] [place] [address] Dr. Kayley Hatfield EGFR-AF MONEGASQUE >60 Normal >=60 [facility] Comment on above: Performed By: #### O BSCRN #### [facility] [address] [address] [address] Kayley Hatfield EGFR-NON AF MONEGASQUE >60 Normal >=60 [facility] Comment on above: Performed By: #### O BSCRN #### [facility] [address] [address] [address] Kayley Hatfield Globulin (S) [Mass/Vol] 4.2 g/dL Normal [facility] Comment on above: Performed By: #### O BSCRN #### [facility] [address] [address] [address] Kayley Hatfield Glucose [Mass/Vol] 134 mg/dL Critically high 74-106 [facility] Comment on above: Performed By: #### O BSCRN #### [facility] [address] [address] [address] Kayley Hatfield Potassium [Moles/Vol] 3.9 mmol/L Normal 3.5-5.1 [facility] Comment on above: Performed By: #### O BSCRN #### [facility] [address] [address] [address] Kayley Hatfield Protein [Mass/Vol] 6.9 g/dL Normal 6.4-8.2 [facility] Comment on above: Performed By: #### O BSCRN #### [facility] [address] [address] [address] Kayley Hatfield Sodium [Moles/Vol] 136 mmol/L Normal 136-145 [facility] Comment on above: Performed By: #### O BSCRN #### [facility] [address] [address] [address] Kayley Hatfield Urea nitrogen [Mass/Vol] 10.0 mg/dL Normal 7.0-18.0 [facility] Comment on above: Performed By: #### O BSCRN #### [facility] [address] [address] [address] Kayley Hatfield Urea nitrogen/Creatinine [Mass ratio] 12.7 mg/mg Normal [facility] Comment on above: Performed By: #### O BSCRN #### [facility] [address] [place] [address] Dr. Kayley Hatfield PROTIMEon 04-25-2022 INR Coag (PPP) [Relative time] 1.08 {INR} Normal [facility] Comment on above: Performed By: #### P RTELEC #### [facility] [address] [place] [address] Dr. Kayley Hatfield INR GUIDELINES SEE BELOW Normal [facility] Comment on above: Result Comment: JOAQUIM RED INR: 2.0 - 3.0 CONDITIONS NOT LISTED BELOW 2.5 - 3.5 FOR PROSTHETIC HEART VALVE REPLACEMENT 2.5 - 3.5 RECURRENT THROMBOSIS Performed By: #### P RTELEC #### [facility] [address] [place] [address] Dr. Kayley Hatfield PT Coag (PPP) [Time] 11.6 s Normal 9.0-11.6 [facility] Comment on above: Performed By: #### P RTELEC #### [facility] [address] [place] [address] Dr. Kayley Hatfield PTTon 04-25-2022 aPTT Coag (Bld) [Time] 31.1 s Normal 22.3-36.2 The [facility] Comment on above: Performed By: #### P RTELEC #### [facility] [address] [place] [address] Dr. Kayley Hatfield TROPONIN, HIGH SENSITIVITYon 04-25-2022 HSTROP 9.6 pg/mL Normal 4.0-51.3 The [facility] Comment on above: Result Comment: CUT- OFF POINTS HAVE BEEN ESTABLISHED BASED ON THE FOURTH UNIVERSAL DEFINITIONS OF MYOCARDIAL INFARCTION. THE UPPER REFERENCE LIMIT (URL) OF TROPONIN, DEFINED THE 99TH PERCENTILE OF cTnI DISTRIBUTION IN A REFERENCE POPULATION, HAS BEEN CONFIRMED THE DECISION THRESHOLD FOR TX DIAGNOSIS. Performed By: #### P RTELEC #### [facility] [address] [place] [address] Dr. Kayley Hatfield TSHon 04-25-2022 TSH 1.431 uIU/mL Normal 0.358-3.740 [facility] Comment on above: Performed By: #### P RTELEC #### [facility] [address] [place] [address] Dr. Kayley Hatfield URINE MICROSCOPIC ONLYon BACTERIA NONE SEEN Normal NONE SEEN [facility] Comment on above: Performed By: #### C VDTBH #### [facility] [address] [place] [address] Dr. Kayley Hatfield Bacteria identified Cx Nom (U) NOT INDICATED Normal The [facility] Comment on above: Performed By: #### C VDTBH #### [facility] [address] [place] [address] Dr. Kayley Hatfield CAST NONE SEEN Normal NONE SEEN [facility] Comment on above: Performed By: #### C VDTBH #### [facility] [address] [place] [address] Dr. Kayley Hatfield Crystals LM Nom (Urine sed) NONE SEEN Normal NONE SEEN [facility] Comment on above: Performed By: #### C VDTBH #### [facility] [address] [place] [address] Dr. Kayley Hatfield Epithelial cells LM Ql (Urine sed) FEW Abnormal NONE SEEN /RARE The [facility] Comment on above: Performed By: #### C VDTBH #### [facility] [address] [place] [address] Dr. Kayley Hatfield MUCOUS NONE SEEN Normal NONE SEEN [facility] Comment on above: Performed By: #### C VDTBH #### [facility] [address] [place] [address] Dr. Kayley Hatfield RBC 2-5 Abnormal 0-2 The [facility] Comment on above: Performed By: #### C VDTBH #### [facility] [address] [place] [address] Dr. Kayley Hatfield WBC NONE SEEN Normal NONE SEEN [facility] Comment on above: Performed By: #### C VDTBH #### [facility] [address] [place] [address] Dr. Kayley Hatfield IMMUNOFIXATION(KENNETH),PROTEIN ELEC(PE),FREon 03-31-2022 Albumin [Mass/Vol] 3.6 g/dL Normal 2.9-4.4 [facility] Comment on above: Performed By: #### B LDCX1 #### [facility] [address] [place] [address] Dr. Kayley Hatfield Albumin/Globulin [Mass ratio] 1.6 {ratio} Normal 0.7-1.7 [facility] Comment on above: Performed By: #### B LDCX1 #### [facility] [address] [place] [address] Dr. Kayley Hatfield Tjgbj-9-Odjuyvcf 0.3 g/dL Normal 0.0-0.4 [facility] Comment on above: Performed By: #### B LDCX1 #### [facility] [address] [place] [address] Dr. Kayley Hatfield Ybram-2-Sugvyvfc 0.8 g/dL Normal 0.4-1.0 [facility] Comment on above: Performed By: #### B LDCX1 #### [facility] [address] [place] [address] Dr. Kayley Hatfield Beta Globulin 1.0 g/dL Normal 0.7-1.3 The [facility] Comment on above: Performed By: #### B LDCX1 #### [facility] [address] [place] [address] Dr. Kayley Hatfield Free [place] Lt Chains,S 16.0 mg/L Normal 3.3-19.4 The [facility] Comment on above: Performed By: #### B LDCX1 #### [facility] [address] [place] [address] Dr. Kayley Hatfield Free Lambda Lt Chains,S 10.1 mg/L Normal 5.7-26.3 The [facility] Comment on above: Performed By: #### B LDCX1 #### [facility] [address] [place] [address] Dr. Kayley Hatfield Gamma Globulin 0.4 g/dL Normal 0.4-1.[address] [facility] Comment on above: Performed By: #### B LDCX1 #### [facility] [address] [place] [address] Dr. Kayley Hatfield Globulin (S) [Mass/Vol] 2.4 g/dL Normal 2.2-3.9 [facility] Comment on above: Performed By: #### B LDCX1 #### [facility] [address] [place] [address] Dr. Kayley Hatfield Immunofixation Result, Serum Comment Normal [facility] Comment on above: Result Comment: No m onoclonality detected. Performed By: #### B LDCX1 #### [facility] [address] [place] [address] Dr. Kayley Hatfield Immunoglobulin A, Qn, Serum 128 mg/dL Normal 87-352 [facility] Comment on above: Performed By: #### B LDCX1 #### [facility] [address] [place] [address] Dr. Kayley Hatfield Immunoglobulin G, Qn, Serum 487 mg/dL Critically low 586-1602 [facility] Comment on above: Performed By: #### B LDCX1 #### [facility] [address] [place] [address] Dr. Kayley Hatfield Immunoglobulin M, Qn, Serum 38 mg/dL Normal 26-217 [facility] Comment on above: Performed By: #### B LDCX1 #### [facility] [address] [place] [address] Dr. Kayley Hatfield [place]/Lambda Ratio, S 1.58 Normal 0.26-1.65 [facility] Comment on above: Performed By: #### B LDCX1 #### [facility] [address] [place] [address] Dr. Kayley Hatfield M-Sandip Not Observed Normal Not Observed The [facility] Comment on above: Performed By: #### B LDCX1 #### [facility] [address] [place] [address] Dr. Kayley Hatfield PDF . Normal The [facility] Comment on above: Performed By: #### B LDCX1 #### [facility] [address] [place] [address] Dr. Kayley Hatfield Please note: Comment Normal [facility] Comment on above: Result Comment: Prot ein electrophoresis scan will follow via computer, mail, or utility bagger delivery. Performed By: #### B LDCX1 #### [facility] [address] [place] [address] Dr. Kayley Hatfield Protein [Mass/Vol] 6.0 g/dL Normal 6.0-8.5 [facility] Comment on above: Performed By: #### B LDCX1 #### [facility] [address] [place] [address] Dr. Kayley Hatfield CBC AUTO DIFFon 03-30-2022 BASO # 0.1 103/ul Normal 0.0-0.1 [facility] Comment on above: Performed By: #### P RBC #### [facility] [address] [place] [address] Dr. Kayley Hatfield Basophils/100 WBC (Bld) 0.4 % Normal 0.2-2.0 [facility] Comment on above: Performed By: #### P RBC #### [facility] [address] [place] [address] Dr. Kayley Hatfield EO # 0.2 103/ul Normal 0.0-0.7 [facility] Comment on above: Performed By: #### P RBC #### [facility] [address] [place] [address] Dr. Kayley Hatfield Eosinophils/100 WBC (Bld) 1.1 % Normal 0.9-7.0 [facility] Comment on above: Performed By: #### P RBC #### [facility] [address] [place] [address] Dr. Kaylye Hatfield Erythrocyte distribution width (RBC) [Ratio] 0.0 % Critically low 11.0-15.0 [facility] Comment on above: Performed By: #### P RBC #### [facility] [address] [place] [address] Dr. Kayley Hatfield Hematocrit (Bld) [Volume fraction] 24.0 % Critically low 36.0-48.0 [facility] Comment on above: Performed By: #### P RBC #### [facility] [address] [address] [address] Kayley Hatfield Hemoglobin (Bld) [Mass/Vol] 7.2 g/dL Critically low 12.0-16.0 [facility] Comment on above: Performed By: #### P RBC #### [facility] [address] [address] [address] Kayley Hatfield IG # 0.10 10e3/ul Critically high 0.00-0.03 [facility] Comment on above: Performed By: #### P RBC #### [facility] [address] [address] [address] Kayley Hatfield IG % 0.6 % Critically high 0.0-0.5 [facility] Comment on above: Performed By: #### P RBC #### [facility] [address] [address] [address] Kayley Hatfield LYMPH # 1.5 103/ul Normal 1.2-3.8 The [facility] Comment on above: Performed By: #### P RBC #### [facility] [address] [address] [address] Kayley Hatfield Lymphocytes/100 WBC (Bld) 9.0 % Critically low 20.5-60.0 [facility] Comment on above: Performed By: #### P RBC #### [facility] [address] [address] [address] Kayley Hatfield MANUAL DIFF REQ NO Normal [facility] Comment on above: Performed By: #### P RBC #### [facility] [address] [address] [address] Kayley Hatfield MCH (RBC) [Entitic mass] 27.3 pg Normal 26.7-34.0 The [facility] Comment on above: Performed By: #### P RBC #### [facility] [address] [address] [address] Kayley Hatfield MCHC (RBC) [Mass/Vol] 30.0 g/dL Normal 29.9-35.2 The [facility] Comment on above: Performed By: #### P RBC #### [facility] [address] [address] [address] Kayley Hatfield MCV (RBC) [Entitic vol] 90.9 fL Normal 81.0-99.0 The [facility] Comment on above: Performed By: #### P RBC #### [facility] [address] [address] [address] Kayley Hatfield MONO # 2.3 103/ul Critically high 0.3-0.8 [facility] Comment on above: Performed By: #### P RBC #### [facility] [address] [address] [address] Kayley Hatfield Monocytes/100 WBC (Bld) 13.8 % Critically high 1.7-12.0 [facility] Comment on above: Performed By: #### P RBC #### [facility] [address] [address] [address] Kayley Hatfield NEUT # 12.7 103/ul Critically high 1.4-6.5 The [facility] Comment on above: Performed By: #### P RBC #### [facility] [address] [address] [address] Kayley Hatfield Neutrophils/100 WBC (Bld) 75.1 % Critically high 43.0-75.0 The [facility] Comment on above: Performed By: #### P RBC #### [facility] [address] [address] [address] Kayley Hatfield Platelet mean volume (Bld) [Entitic vol] 8.9 fL Critically low 9.5-13.5 The [facility] Comment on above: Performed By: #### P RBC #### [facility] [address] [address] [address] Kayley Hatfield PLT 782 103/ul Critically high 150-450 [facility] Comment on above: Performed By: #### P RBC #### [facility] [address] [address] [address] Kayley Hatfield RBC 2.64 106/ul Critically low 4.20-5.40 [facility] Comment on above: Performed By: #### P RBC #### [facility] [address] [place] [address] Dr. Kayley Hatfield WBC 16.9 103/ul Critically high 4.0-11.0 [facility] Comment on above: Performed By: #### P RBC #### [facility] [address] [place] [address] Dr. Kayley Hatfield PRBC LEUKOREDUCEDon 03-30-20 ABO and Rh group Nom (Bld) Cross Match Result Compatible Unit Blood Type O Pos Unit Number [id number] Status Information Transfused Product ID Red Blood Cells Product Code [id number] Cross Match Result Compatible Unit Blood Type O Pos Unit Number [id number] Status Information Transfused Product ID Red Blood Cells Product Code [id number] Normal [facility] Comment on above: Performed By: #### P RBC #### [facility] [address] [place] [address] Dr. Kayley Hatfield PROF CHEM 8 (BAS METB)on Anion gap [Moles/Vol] 6.9 mmol/L Normal [facility] Comment on above: Performed By: #### P RBC #### [facility] [address] [place] [address] Dr. Kayley Hatfield Calcium [Mass/Vol] 8.7 mg/dL Normal 8.5-10.1 [facility] Comment on above: Performed By: #### P RBC #### [facility] [address] [place] [address] Dr. Kayley Hatfield Chloride [Moles/Vol] 101 mmol/L Normal 98-107 The [facility] Comment on above: Performed By: #### P RBC #### [facility] [address] [place] [address] Dr. Kayley Hatfield CO2 [Moles/Vol] 33.3 mmol/L Critically high 21.0-32.0 The [facility] Comment on above: Performed By: #### P RBC #### [facility] [address] [place] [address] Dr. Kayley Hatfield Creatinine [Mass/Vol] 0.83 mg/dL Normal 0.55-1.02 [facility] Comment on above: Performed By: #### P RBC #### [facility] [address] [address] [address] Kayley Hatfield EGFR-AF MONEGASQUE >60 Normal >=60 [facility] Comment on above: Performed By: #### P RBC #### [facility] [address] [address] [address] Kayley Hatfield EGFR-NON AF MONEGASQUE >60 Normal >=60 [facility] Comment on above: Performed By: #### P RBC #### [facility] [address] [address] [address] Kayley Hatfield Glucose [Mass/Vol] 94 mg/dL Normal 74-106 [facility] Comment on above: Performed By: #### P RBC #### [facility] [address] [address] [address] Kayley Hatfield Potassium [Moles/Vol] 4.2 mmol/L Normal 3.5-5.1 [facility] Comment on above: Performed By: #### P RBC #### [facility] [address] [address] [address] Kayley Hatfield Sodium [Moles/Vol] 137 mmol/L Normal 136-145 [facility] Comment on above: Performed By: #### P RBC #### [facility] [address] [place] [address] Dr. Kayley Hatfield Urea nitrogen [Mass/Vol] 15.0 mg/dL Normal 7.0-18.0 [facility] Comment on above: Performed By: #### P RBC #### [facility] [address] [address] [address] Kayley Hatfield Urea nitrogen/Creatinine [Mass ratio] 18.1 mg/mg Normal [facility] Comment on above: Performed By: #### P RBC #### [facility] [address] [place] [address] Dr. Kayley Hatfield PROTEIN ELECTROPHERESISon Albumin [Mass/Vol] 3.4 g/dL Normal 2.9-4.4 [facility] Comment on above: Performed By: #### P RTELEC #### [facility] [address] [place] [address] Dr. Kayley Hatfield Albumin/Globulin [Mass ratio] 1.3 {ratio} Normal 0.7-1.7 [facility] Comment on above: Performed By: #### P RTELEC #### [facility] [address] [place] [address] Dr. Kayley Hatfield Wvywh-5-Iygwyuua 0.3 g/dL Normal 0.0-0.4 [facility] Comment on above: Performed By: #### P RTELEC #### [facility] [address] [place] [address] Dr. Kayley Hatfield Alttn-5-Egkbnbqp 0.8 g/dL Normal 0.4-1.0 [facility] Comment on above: Performed By: #### P RTELEC #### [facility] [address] [place] [address] Dr. Kayley Hatfield Beta Globulin 1.0 g/dL Normal 0.7-1.3 [facility] Comment on above: Performed By: #### P RTELEC #### [facility] [address] [place] [address] Dr. Kayley Hatfield Gamma Globulin 0.5 g/dL Normal 0.4-1.[address] [facility] Comment on above: Performed By: #### P RTELEC #### [facility] [address] [place] [address] Dr. Kayely Hatfield Globulin (S) [Mass/Vol] 2.6 g/dL Normal 2.2-3.9 The [facility] Comment on above: Performed By: #### P RTELEC #### [facility] [address] [place] [address] Dr. Kayley Hatfield M-Sandip Not Observed Normal Not Observed [facility] Comment on above: Performed By: #### P RTELEC #### [facility] [address] [place] [address] Dr. Kayley Hatfield PDF . Normal The [facility] Comment on above: Performed By: #### P RTELEC #### [facility] [address] [place] [address] Dr. Kayley Hatfield Please note: Comment Normal [facility] Comment on above: Result Comment: Prot ein electrophoresis scan will follow via computer, mail, or utility bagger delivery. Performed By: #### P RTELEC #### [facility] [address] [address] [address] Kayley Hatfield Protein [Mass/Vol] 6.0 g/dL Normal 6.0-8.5 [facility] Comment on above: Performed By: #### P RTELEC #### [facility] [address] [address] [address] Kayley Hatfield XR CHEST 1 Von [...] TYSHAWN MOORE Date: 2022-03-30 06:17 Normal The [facility] CBC W MANUAL DIFFon 03-29-20 22 ANISOCYTOSIS 2+ Normal [facility] Comment on above: Performed By: #### C VDTBH #### [facility] [address] [address] [address] Kayley Hatfield ATYPICAL LYMPH # Normal [facility] Comment on above: Performed By: #### C VDTBH #### [facility] [address] [address] [address] Kayley Hatfield ATYPICAL LYMPH % Normal [facility] Comment on above: Performed By: #### C VDTBH #### [facility] [address] [address] [address] Kayley Hatfield BAND # 0.0 103/ul Normal 0.0-0.3 The [facility] Comment on above: Performed By: #### C VDTBH #### [facility] [address] [place] [address] Dr. Kayley Hatfield BAND % 0 % Normal 0-5 The [facility] Comment on above: Performed By: #### C VDTBH #### [facility] [address] [place] [address] Dr. Kayley Hatfield BASOM # 0.59 103/ul Critically high 0.00-0.10 [facility] Comment on above: Performed By: #### C VDTBH #### [facility] [address] [place] [address] Dr. Kayley Hatfield BASOM % 3.0 % Critically high 0.2-2.0 The [facility] Comment on above: Performed By: #### C VDTBH #### [facility] [address] [place] [address] Dr. Kayley Hatfield BLAST # Normal [facility] Comment on above: Performed By: #### C VDTBH #### [facility] [address] [place] [address] Dr. Kayley Hatfield BLAST % Normal The [facility] Comment on above: Performed By: #### C VDTBH #### [facility] [address] [place] [address] Dr. Kayley Hatfield CORRECTED WBC Normal 4.0-11.0 The [facility] Comment on above: Performed By: #### C VDTBH #### [facility] [address] [place] [address] Dr. Kayley Hatfield EOS # 0.40 103/ul Normal 0.00-0.70 [facility] Comment on above: Performed By: #### C VDTBH #### [facility] [address] [place] [address] Dr. Kayley Hatfield EOS% 2.0 % Normal 0.9-7.0 [facility] Comment on above: Performed By: #### C VDTBH #### [facility] [address] [address] [address] Kayley Hatfield HCT 31.1 % Critically low 36.0-48.0 [facility] Comment on above: Performed By: #### C VDTBH #### [facility] [address] [place] [address] Dr. Kayley Hatfield HGB 9.7 g/dl Critically low 12.0-16.0 [facility] Comment on above: Performed By: #### C VDTBH #### [facility] [address] [place] [address] Dr. Kayley Hatfield HYPOCHROMASIA 1+ Normal The [facility] Comment on above: Performed By: #### C VDTBH #### [facility] [address] [place] [address] Dr. Kayley Hatfield LYMPHM # 4.75 103/ul Critically high 1.20-3.80 [facility] Comment on above: Performed By: #### C VDTBH #### [facility] [address] [place] [address] Dr. Kayley Hatfield LYMPHM% 24.0 % Normal 20.5-60.0 [facility] Comment on above: Performed By: #### C VDTBH #### [facility] [address] [place] [address] Dr. Kayley Hatfield MCH 27.0 pg Normal 26.7-34.0 [facility] Comment on above: Performed By: #### C VDTBH #### [facility] [address] [place] [address] Dr. Kayley Hatfield MCHC 31.2 g/dl Normal 29.9-35.2 The [facility] Comment on above: Performed By: #### C VDTBH #### [facility] [address] [place] [address] Dr. Kayley Hatfield MCV 86.6 fL Normal 81.0-99.0 [facility] Comment on above: Performed By: #### C VDTBH #### [facility] [address] [place] [address] Dr. Kayley Hatfield METAMYELOCYTE # Normal The [facility] Comment on above: Performed By: #### C VDTBH #### [facility] [address] [address] [address] Kayley Hatfield METAMYELOCYTE % Normal [facility] Comment on above: Performed By: #### C VDTBH #### [facility] [address] [address] [address] Kayley Hatfield MONOM# 0.59 103/ul Normal 0.30-0.80 [facility] Comment on above: Performed By: #### C VDTBH #### [facility] [address] [address] [address] Kayley Hatfield MONOM% 3.0 % Normal 1.7-12.0 [facility] Comment on above: Performed By: #### C VDTBH #### [facility] [address] [place] [address] Dr. Kayley Hatfield MPV 8.4 fL Critically low 9.5-13.5 [facility] Comment on above: Performed By: #### C VDTBH #### [facility] [address] [place] [address] Dr. Kayley Hatfield MYELOCYTE # Normal [facility] Comment on above: Performed By: #### C VDTBH #### [facility] [address] [place] [address] Dr. Kayley Hatfield MYELOCYTE % Normal The [facility] Comment on above: Performed By: #### C VDTBH #### [facility] [address] [place] [address] Dr. Kayley Hatfield NRBC Normal [facility] Comment on above: Performed By: #### C VDTBH #### [facility] [address] [address] [address] Kayley Hatfield OVALOCYTES SLIGHT Normal The [facility] Comment on above: Performed By: #### C VDTBH #### [facility] [address] [place] [address] Dr. Kayley Hatfield PLT 950 103/ul Critically high 150-450 [facility] Comment on above: Performed By: #### C VDTBH #### [facility] [address] [address] [address] Kayley Hatfield RBC 3.59 106/ul Critically low 4.20-5.40 The [facility] Comment on above: Performed By: #### C VDTBH #### [facility] [address] [address] [address] Kayley Hatfield RDW 26.6 % Critically high 11.0-15.0 The [facility] Comment on above: Performed By: #### C VDTBH #### [facility] [address] [address] [address] Kayley Hatfield SEG # 13.46 103/ul Critically high 1.40-6.50 The [facility] Comment on above: Performed By: #### C VDTBH #### [facility] [address] [address] [address] Kayley Hatfield SEG % 68.0 % Normal 43.0-75.0 [facility] Comment on above: Performed By: #### C VDTBH #### [facility] [address] [address] [address] Kayley Hatfield WBC 19.8 103/ul Critically high 4.0-11.0 [facility] Comment on above: Performed By: #### C VDTBH #### [facility] [address] [address] [address] Kayley Hatfield PROF CHEM 8 (BAS METB)on Anion gap [Moles/Vol] 8.6 mmol/L Normal [facility] Comment on above: Performed By: #### L #### [facility] [address] [address] [address] Kayley Hatfield Calcium [Mass/Vol] 8.9 mg/dL Normal 8.5-10.1 [facility] Comment on above: Performed By: #### L DH #### [facility] [address] [address] [address] Kayley Hatfield Chloride [Moles/Vol] 102 mmol/L Normal 98-107 The [facility] Comment on above: Performed By: #### L DH #### [facility] [address] [address] [address] Kayley Hatfield CO2 [Moles/Vol] 34.3 mmol/L Critically high 21.0-32.0 [facility] Comment on above: Performed By: #### L DH #### [facility] [address] [address] [address] Kayley Hatfield Creatinine [Mass/Vol] 0.86 mg/dL Normal 0.55-1.02 The [facility] Comment on above: Performed By: #### L DH #### [facility] [address] [address] [address] Kayley Hatfield EGFR-AF MONEGASQUE >60 Normal >=60 The [facility] Comment on above: Performed By: #### L DH #### [facility] [address] [place] [address] Dr. Kayley Hatfield EGFR-NON AF MONEGASQUE >60 Normal >=60 The [facility] Comment on above: Performed By: #### L DH #### [facility] [address] [place] [address] Dr. Kayley Hatfield Glucose [Mass/Vol] 102 mg/dL Normal 74-106 The [facility] Comment on above: Performed By: #### L DH #### [facility] [address] [place] [address] Dr. Kayley Hatfield Potassium [Moles/Vol] 3.9 mmol/L Normal 3.5-5.1 The [facility] Comment on above: Performed By: #### L DH #### [facility] [address] [place] [address] Dr. Kayley Hatfield Sodium [Moles/Vol] 141 mmol/L Normal 136-145 The [facility] Comment on above: Performed By: #### L DH #### [facility] [address] [place] [address] Dr. Kayley Hatfield Urea nitrogen [Mass/Vol] 20.0 mg/dL Critically high 7.0-18.0 [facility] Comment on above: Performed By: #### L DH #### [facility] [address] [place] [address] Dr. Kayley Hatfield Urea nitrogen/Creatinine [Mass ratio] 23.3 mg/mg Normal The [facility] Comment on above: Performed By: #### L #### [facility] [address] [place], [place] [address] Dr. Kayley Hatfield XR CHEST 1 Von 03-29-2022 XR CHEST 1 V EXAM: XR CHEST [...] by: ASAEL ANAND Date: 2022-03-28 22:40 Normal [facility] XR CHEST 1 V EXAMINATION: XR CHES [...] MIGUE REYNOSO Date: 2022-03-29 07:32 Normal The [facility] XR CHEST 1 V EXAMINATION: XR CHES [...] MIGUE REYNOSO Date: 2022-03-29 11:37 Normal The [facility] XR CHEST 1 V EXAMINATION: XR CHES [...] MIGUE REYNOSO Date: 2022-03-29 13:26 Normal The [facility] CBC W MANUAL DIFFon 03-28-20 22 ANISOCYTOSIS 3+ Normal The [facility] Comment on above: Performed By: #### C ALONZO #### [facility] [address] [place] [address] Dr. Kayley Hatfield ATYPICAL LYMPH # Normal The [facility] Comment on above: Performed By: #### C ABBYMAN #### [facility] [address] [address] [address] Kayley Hatfield ATYPICAL LYMPH % Normal The [facility] Comment on above: Performed By: #### C BCMAN #### [facility] [address] [address] [address] Kayley Hatfield BAND # 0.3 103/ul Normal 0.0-0.3 The [facility] Comment on above: Performed By: #### C ABBYMAN #### [facility] [address] [address] [address] Kayley Hatfield BAND % 2 % Normal 0-5 The [facility] Comment on above: Performed By: #### C ALONZO #### [facility] [address] [address] [address] Kayley Hatfield BASOM # 0.00 103/ul Normal 0.00-0.10 The [facility] Comment on above: Performed By: #### C ALONZO #### [facility] [address] [place] [address] Dr. Kayley Hatfield BASOM % 0.0 % Critically low 0.2-2.0 [facility] Comment on above: Performed By: #### C ALONZO #### [facility] [address] [place] [address] Dr. Kayley Hatfield BLAST # Normal [facility] Comment on above: Performed By: #### C ALONZO #### [facility] [address] [place] [address] Dr. Kayley Hatfield BLAST % Normal [facility] Comment on above: Performed By: #### C ALONZO #### [facility] [address] [place] [address] Dr. Kayley Hatfield CORRECTED WBC Normal 4.0-11.0 [facility] Comment on above: Performed By: #### C ALONZO #### [facility] [address] [place] [address] Dr. Kayley Hatfield EOS # 0.00 103/ul Normal 0.00-0.70 [facility] Comment on above: Performed By: #### C ALONZO #### [facility] [address] [place] [address] Dr. Kayley Hatfield EOS% 0.0 % Critically low 0.9-7.[address] [facility] Comment on above: Performed By: #### C ALONZO #### [facility] [address] [place] [address] Dr. Kayley Hatfield HCT 23.6 % Critically low 36.0-48.0 [facility] Comment on above: Performed By: #### C ALONZO #### [facility] [address] [place] [address] Dr. Kayley Hatfield HGB 6.8 g/dl Critically low 12.0-16.0 [facility] Comment on above: Performed By: #### C ALONZO #### [facility] [address] [address] [address] Kayley Hatfield HYPOCHROMASIA 3+ Normal [facility] Comment on above: Performed By: #### C ALONZO #### [facility] [address] [address] [address] Kayley Hatfield LYMPHM # 1.17 103/ul Critically low 1.20-3.80 [facility] Comment on above: Performed By: #### C ALONZO #### [facility] [address] [address] [address] Kayley Hatfield LYMPHM% 7.0 % Critically low 20.5-60.0 [facility] Comment on above: Performed By: #### C ALONZO #### [facility] [address] [place] [address] Dr. Kayley Hatfield MCH 24.6 pg Critically low 26.7-34.0 [facility] Comment on above: Performed By: #### C ALONZO #### [facility] [address] [address] [address] Kayley Hatfield MCHC 28.8 g/dl Critically low 29.9-35.2 [facility] Comment on above: Performed By: #### C ALONZO #### [facility] [address] [address] [address] Kayley Hatfield MCV 85.5 fL Normal 81.0-99.0 [facility] Comment on above: Performed By: #### C ALONZO #### [facility] [address] [address] [address] Kayley Hatfield METAMYELOCYTE # Normal [facility] Comment on above: Performed By: #### C ALONZO #### [facility] [address] [place] [address] Dr. Kayley Hatfield METAMYELOCYTE % Normal [facility] Comment on above: Performed By: #### C ALONZO #### [facility] [address] [address] [address] Kayley Hatfield MONOM# 0.50 103/ul Normal 0.30-0.80 [facility] Comment on above: Performed By: #### C ALONZO #### [facility] [address] [address] [address] Kayley Hatfield MONOM% 3.0 % Normal 1.7-12.0 [facility] Comment on above: Performed By: #### C ALONZO #### [facility] [address] [address] [address] Kayley Hatfield MPV 8.6 fL Critically low 9.5-13.5 [facility] Comment on above: Performed By: #### C ALONZO #### [facility] [address] [place] [address] Dr. Kayley Hatfield MYELOCYTE # Normal [facility] Comment on above: Performed By: #### C ALONZO #### [facility] [address] [place] [address] Dr. Kayley Hatfield MYELOCYTE % Normal [facility] Comment on above: Performed By: #### C ALONZO #### [facility] [address] [place] [address] Dr. Kayley Hatfield NRBC Normal [facility] Comment on above: Performed By: #### C ALONZO #### [facility] [address] [place] [address] Dr. Kayley Hatfield OVALOCYTES SLIGHT Normal The [facility] Comment on above: Performed By: #### C ALONZO #### [facility] [address] [place] [address] Dr. Kayley Hatfield PLT 1384 103/ul Critically high 150-450 [facility] Comment on above: Performed By: #### C ALONZO #### [facility] [address] [place] [address] Dr. Kayley Hatfield RBC 2.76 106/ul Critically low 4.20-5.40 [facility] Comment on above: Performed By: #### C ALONZO #### [facility] [address] [place] [address] Dr. Kayley Hatfield RDW 0.0 % Critically low 11.0-15.[address] [facility] Comment on above: Performed By: #### C BCMAN #### [facility] [address] [place] [address] Dr. Kayley Hatfield SEG # 14.70 103/ul Critically high 1.40-6.50 The [facility] Comment on above: Performed By: #### C BCMAN #### [facility] [address] [place] [address] Dr. Kayley Hatfield SEG % 88.0 % Critically high 43.0-75.0 [facility] Comment on above: Performed By: #### C BCMAN #### [facility] [address] [place] [address] Dr. Kayley Hatfield WBC 16.7 103/ul Critically high 4.0-11.0 [facility] Comment on above: Performed By: #### C ALONZO #### [facility] [address] [place] [address] Dr. Kayley Hatfield CRPon 03-28-2022 CRP [Mass/Vol] mg/L Normal <=1.0 [facility] Comment on above: Performed By: #### H GBHCT #### [facility] [address] [place] [address] Dr. Kayley Hatfield Covid-19 PCR ([facility])on 03-10 SARS-CoV-2 (COVID-19) RNA ELBA+probe Ql (Unsp spec) Not detected Normal NOT DETECTED The [facility] Comment on above: Result Comment: When diagnostic [...] for this test is supported by the [place] of [employer] and Human Service's declaration that [...] used). Performed By: #### P RBC #### [facility] [address] [place] [address] Dr. Kayley Hatfield ER URINE PROFILEon 2 Bilirubin Ql (U) Negative Normal NEGATIVE The [facility] Comment on above: Performed By: #### P RBC #### [facility] [address] [place] [address] Dr. Kayley Hatfield Clarity (U) CLEAR Normal CLEAR [facility] Comment on above: Performed By: #### P RBC #### [facility] [address] [place] [address] Dr. Kayley Hatfield Color (U) LT. YELLOW Normal YELLOW The [facility] Comment on above: Performed By: #### P RBC #### [facility] [address] [place] [address] Dr. Kayley Hatfield ERUAHD A micrscopic examination will be performed if indicated. Normal The [facility] Comment on above: Performed By: #### P RBC #### [facility] [address] [place] [address] Dr. Kayley Hatfield Glucose Ql (U) Negative Normal NEGATIVE The [facility] Comment on above: Performed By: #### P RBC #### [facility] [address] [place] [address] Dr. Kayley Hatfield Hemoglobin Ql (U) Negative Normal NEGATIVE The [facility] Comment on above: Performed By: #### P RBC #### [facility] [address] [place] [address] Dr. Kayley Hatfield Ketones Ql (U) Negative Normal NEGATIVE The [facility] Comment on above: Performed By: #### P RBC #### [facility] [address] [place] [address] Dr. Kayley Hatfield LEUKOCYTES Negative Normal NEGATIVE [facility] Comment on above: Performed By: #### P RBC #### [facility] [address] [place] [address] Dr. Kayley Hatfield Nitrite Ql (U) Negative Normal NEGATIVE [facility] Comment on above: Performed By: #### P RBC #### [facility] [address] [place] [address] Dr. Kayley Hatfield pH (U) 6.0 [pH] Normal 5-9 [facility] Comment on above: Performed By: #### P RBC #### [facility] [address] [place] [address] Dr. Kayley Hatfield SPEC GRAVITY <=1.005 Abnormal 1.005-<=1.025 [facility] Comment on above: Performed By: #### P RBC #### [facility] [address] [place] [address] Dr. Kayley Hatfield UA PROTEIN Negative Normal NEGATIVE/ TRACE [facility] Comment on above: Performed By: #### P RBC #### [facility] [address] [place] [address] Dr. Kayley Hatfield UR MICRO IND NOT INDICATED Normal [facility] Comment on above: Performed By: #### P RBC #### [facility] [address] [place] [address] Dr. Kayley Hatfield Urobilinogen Qn (U) 0.2 {Lu'U}/dL Normal 0.2 - 1. 0 [facility] Comment on above: Performed By: #### P RBC #### [facility] [address] [place] [address] Dr. Kayley Hatfield FERRITINon 03-28-2022 Ferritin [Mass/Vol] 61.0 ng/mL Normal 8.0-252.0 [facility] Comment on above: Performed By: #### P RBC #### [facility] [address] [place] [address] Dr. Kayley Hatfield GLYCOHEMOGLOBIN A1Con 2021 ADA RECOMMENDATION SEE BELOW Normal [facility] Comment on above: Result Comment: ADA RECOMMENDED LIMIT 4.0 - 6.0 ADA THERAPEUTIC TARGET < 7.0 ACTION SUGGESTED > 7.0 Performed By: #### P RBC #### [facility] [address] [place] [address] Dr. Kayley Hatfield Glucose [Mass/Vol] 114 mg/dL Normal [facility] Comment on above: Performed By: #### P RBC #### [facility] [address] [place] [address] Dr. Kayley Hatfield HbA1c (Bld) [Mass fraction] 5.6 % Normal 4.5-6.2 [facility] Comment on above: Performed By: #### P RBC #### [facility] [address] [address] [address] Kayley Hatfield IRONon 03-28-2022 Iron [Mass/Vol] 37.0 ug/dL Critically low 50.0-170.0 [facility] Comment on above: Performed By: #### P RBC #### [facility] [address] [place] [address] Dr. Kayley Hatfield LDHon 03-28-2022 LDH 174 U/L Normal 81-234 [facility] Comment on above: Performed By: #### L DH #### [facility] [address] [place] [address] Dr. Kayley Hatfield LIPID PROFILEon 03-28-2022 CHOL-HDL RATIO NORM SEE BELOW Normal [facility] Comment on above: Result Comment: 3.3 - 4.4 LOW RISK 4.4 - 7.1 AVERAGE RISK 7.1 - 11.0 MODERATE RISK >11.0 HIGH RISK Performed By: #### P RBC #### [facility] [address] [place] [address] Dr. Kayley Hatfield Cholesterol [Mass/Vol] 193 mg/dL Normal <=200 [facility] Comment on above: Performed By: #### P RBC #### [facility] [address] [place] [address] Dr. Kayley Hatfield Cholesterol in HDL [Mass/Vol] 95 mg/dL Critically high 40-60 [facility] Comment on above: Performed By: #### P RBC #### [facility] [address] [place] [address] Dr. Kayley Hatfield Cholesterol in LDL [Mass/Vol] 74.8 mg/dL Normal [facility] Comment on above: Performed By: #### P RBC #### [facility] [address] [address] [address] Kayley Hatfield Cholesterol.total/Cho lesterol in HDL [Mass ratio] 2.0 {ratio} Normal [facility] Comment on above: Performed By: #### P RBC #### [facility] [address] [address] [address] Kayley Hatfield HDL NORMAL > or = 60 mg/dl - LO W CARDIOVASCULAR RISK <40 mg/dl - HIGH CARDIOVASCULAR RISK Normal [facility] Comment on above: Performed By: #### P RBC #### [facility] [address] [address] [address] Kayley Hatfield LDL CALC NORMAL SEE BELOW Normal [facility] Comment on above: Result Comment: <100 mg/dl OPTIMAL 100 - 129 mg/dl NEAR OR ABOVE OPTIMAL 130 - 159 mg/dl BORDERLINE HIGH 160 - 189 mg/dl HIGH >190 mg/dl VERY HIGH Performed By: #### P RBC #### [facility] [address] [address] [address] Kayley Hatfield Triglyceride [Mass/Vol] 116 mg/dL Normal <=150 [facility] Comment on above: Performed By: #### P RBC #### [facility] [address] [address] [address] Kayley Hatfield VLDL CALC 23.2 mg/dL Normal [facility] Comment on above: Performed By: #### P RBC #### [facility] [address] [address] [address] Kayley Hatfield LIVER PROFILEon 03-28-2022 Albumin [Mass/Vol] 3.2 g/dL Critically low 3.4-5.0 Th e [facility] Comment on above: Performed By: #### P RBC #### [facility] [address] [place] [address] Dr. Kayley Hatfield Albumin/Globulin [Mass ratio] 1.0 {ratio} Normal [facility] Comment on above: Performed By: #### P RBC #### [facility] [address] [address] [address] Kalyey Hatfield ALP [Catalytic activity/Vol] 56 U/L Normal 46-116 [facility] Comment on above: Performed By: #### P RBC #### [facility] [address] [address] [address] Kayley Hatfield ALT [Catalytic activity/Vol] 32 U/L Normal 14-59 [facility] Comment on above: Performed By: #### P RBC #### [facility] [address] [address] [address] Kayley Hatfield AST [Catalytic activity/Vol] 18 U/L Normal 15-37 [facility] Comment on above: Performed By: #### P RBC #### [facility] [address] [address] [address] Kayley Hatfield BILI, CONJUGATED 0.1 mg/dL Normal 0.0-0.2 [facility] Comment on above: Performed By: #### P RBC #### [facility] [address] [address] [address] Kayley Hatfield Bilirubin [Mass/Vol] 0.2 mg/dL Normal 0.2-1.0 [facility] Comment on above: Performed By: #### P RBC #### [facility] [address] [address] [address] Kayley Hatfield Globulin (S) [Mass/Vol] 3.1 g/dL Normal [facility] Comment on above: Performed By: #### P RBC #### [facility] [address] [address] [address] Kayley Hatfield Protein [Mass/Vol] 6.3 g/dL Critically low 6.4-8.2 [facility] Comment on above: Performed By: #### P RBC #### [facility] [address] [address] [address] Kayley Hatfield MAGNESIUMon 03-28-2022 Magnesium [Mass/Vol] 1.8 mg/dL Normal 1.8-2.4 [facility] Comment on above: Performed By: #### H GBHCT #### [facility] [address] [address] [address] Kayley Hatfield PHOSPHORUSon 09-20-2022 Phosphate [Mass/Vol] 4.4 mg/dL Normal 2.6-4.7 [facility] Comment on above: Performed By: #### O BSCRN #### [facility] [address] [place] [address] Dr. Kayley Hatfield PROF CHEM 8 (BAS METB)on Anion gap [Moles/Vol] 10.1 mmol/L Normal [facility] Comment on above: Performed By: #### P RBC #### [facility] [address] [place] [address] Dr. Kayley Hatfield Calcium [Mass/Vol] 9.1 mg/dL Normal 8.5-10.1 [facility] Comment on above: Performed By: #### P RBC #### [facility] [address] [place] [address] Dr. Kayley Hatfield Chloride [Moles/Vol] 101 mmol/L Normal 98-107 [facility] Comment on above: Performed By: #### P RBC #### [facility] [address] [place] [address] Dr. Kayley Hatfield CO2 [Moles/Vol] 32.6 mmol/L Critically high 21.0-32.0 [facility] Comment on above: Performed By: #### P RBC #### [facility] [address] [place] [address] Dr. Kayley Hatfield Creatinine [Mass/Vol] 0.90 mg/dL Normal 0.55-1.02 [facility] Comment on above: Performed By: #### P RBC #### [facility] [address] [place] [address] Dr. Kayley Hatfield EGFR-AF MONEGASQUE >60 Normal >=60 [facility] Comment on above: Performed By: #### P RBC #### [facility] [address] [place] [address] Dr. Kayley Hatfield EGFR-NON AF MONEGASQUE >60 Normal >=60 [facility] Comment on above: Performed By: #### P RBC #### [facility] [address] [place] [address] Dr. Kayley Hatfield Glucose [Mass/Vol] 161 mg/dL Critically high 74-106 [facility] Comment on above: Performed By: #### P RBC #### [facility] [address] [address] [address] Kayley Hatfield Potassium [Moles/Vol] 4.7 mmol/L Normal 3.5-5.1 [facility] Comment on above: Performed By: #### P RBC #### [facility] [address] [address] [address] Kayley Hatfield Sodium [Moles/Vol] 139 mmol/L Normal 136-145 [facility] Comment on above: Performed By: #### P RBC #### [facility] [address] [address] [address] Kayley Hatfield Urea nitrogen [Mass/Vol] 15.0 mg/dL Normal 7.0-18.0 [facility] Comment on above: Performed By: #### P RBC #### [facility] [address] [address] [address] Kayley Hatfield Urea nitrogen/Creatinine [Mass ratio] 16.7 mg/mg Normal [facility] Comment on above: Performed By: #### P RBC #### [facility] [address] [address] [address] Kayley Hatfield RETICULOCYTEon 03-28-2022 RETIC 4.65 % Critically high 0.60-3.10 [facility] Comment on above: Performed By: #### L DH #### [facility] [address] [address] [address] Kayley Hatfield SED RATE WESTERGRENon 2021 SED RATE 12 mm/hr Normal <=30 [facility] Comment on above: Performed By: #### P RTELEC #### [facility] [address] [address] [address] Kayley Hatfield TSHon 03-28-2022 TSH 0.922 uIU/mL Normal 0.358-3.740 [facility] Comment on above: Performed By: #### P RBC #### [facility] [address] [address] [address] Kayley Hatfield TYPE AND SCREENon 03-28-2022 TYPE AND SCREEN Negative Normal [facility] Comment on above: Performed By: #### C VDTBH #### [facility] [address] [place] [address] Dr. Kayley Hatfield VIT B12 AND FOLATEon 022 Cobalamin (Vitamin B12) [Mass/Vol] 490.0 pg/mL Normal 193.0-986.0 [facility] Comment on above: Performed By: #### L DH #### [facility] [address] [place] [address] Dr. Kayley Hatfield FOLATE 14.00 ng/mL Normal 8.60-58.90 [facility] Comment on above: Performed By: #### L DH #### [facility] [address] [place] [address] Dr. Kayley Hatfield VITAMIN D 25 OHon 03-28-2022 VIT D 25-OH 41.5 ng/mL Normal [facility] Comment on above: Performed By: #### O BSCRN #### [facility] [address] [place] [address] Dr. Kayley Hatfield VIT D RANGES SEE BELOW Normal [facility] Comment on above: Result Comment: <20 ng/mL Vit D deficient 20 - <30 ng/mL Vit D insufficient 30 - 100 ng/mL Vit D sufficient >100 ng/mL Potential Toxicity Performed By: #### O BSCRN #### [facility] [address] [place] [address] Dr. Kayley Hatfield XR CHEST 1 Von [...] STEPHEN ARAIZA Date: 2022-03-28 21:37 Normal [facility] BASIC METABOLIC PANELon 09-0 Calcium [Mass/Vol] 8.9 mg/dL Normal 8.6-10.3 [facility] Comment on above: Order Comment: No: D o not add to previous draw Performed By: #### 3 5200, 28308, 48932, 60633 #### [facility] [address] [place] [address], [facility] Chloride [Moles/Vol] 97 mmol/L Low 98-107 [facility] Comment on above: Order Comment: No: D o not add to previous draw Performed By: #### 3 5200, 30862, 38400, 87253 #### [facility] [address] [place] [address], [place] CO2 [Moles/Vol] 35 mmol/L High 21-31 [facility] Comment on above: Order Comment: No: D o not add to previous draw Performed By: #### 3 5200, 70895, 44549, 88190 #### [facility] [address] [place] [address], [place] Creatinine [Mass/Vol] 0.65 mg/dL Normal 0.60-1.20 [facility] Comment on above: Order Comment: No: D o not add to previous draw Performed By: #### 3 5200, 59465, 77162, 95008 #### [facility] [address] [place] [address], [place] GFR/1.73 sq M.predicted among non-blacks MDRD (S/P/Bld) [Vol rate/Area] mL/min/{1.73_m2} Normal >60 [facility] Comment on above: Order Comment: No: D o not add to previous draw Result Comment: [facility]'s estimated glomerular filtration rate (eGFR) will no [...] of individuals. Performed By: #### 3 5200, 59225, 69503, 81398 #### [facility] [address] [place] [address], [place] Glucose [Mass/Vol] 161 mg/dL High 70-100 [facility] Comment on above: Order Comment: No: D o not add to previous draw Performed By: #### 3 5200, 55913, 77857, 71476 #### [facility] [address] [place] [address], [place] Potassium [Moles/Vol] 3.9 mmol/L Normal 3.5-5.1 [facility] Comment on above: Order Comment: No: D o not add to previous draw Performed By: #### 3 5200, 62068, 11183, 55750 #### [facility] [address] [place] [address], [place] Sodium [Moles/Vol] 136 mmol/L Normal 136-145 [facility] Comment on above: Order Comment: No: D o not add to previous draw Performed By: #### 3 5200, 38335, 39944, 90551 #### [facility] [address] [place] [address], [place] Urea nitrogen [Mass/Vol] 16 mg/dL Normal 7-25 [facility] Comment on above: Order Comment: No: D o not add to previous draw Performed By: #### 3 5200, 35130, 53679, 64734 #### [facility] [address] [place] [address], [facility] CBC COMPLETE BLOOD COUNTon 0 03-15-2022 Hematocrit (Bld) [Volume fraction] 28.2 % Low 36.0-45.0 [facility] Comment on above: Order Comment: No: D o not add to previous draw Performed By: #### 3 5200 #### [facility] [address] [place] [address], [facility] Hemoglobin (Bld) [Mass/Vol] 8.3 g/dL Low 12.0-15.0 [facility] Comment on above: Order Comment: No: D o not add to previous draw Performed By: #### 3 5200 #### [facility] [address] [place] [address], [facility] MCH (RBC) [Entitic mass] 22.9 pg Low 27.0-33.0 [facility] Comment on above: Order Comment: No: D o not add to previous draw Performed By: #### 3 5200 #### [facility] [address] [place] [address], [facility] MCHC (RBC) [Mass/Vol] 29.4 g/dL Low 32.0-35.0 [facility] Comment on above: Order Comment: No: D o not add to previous draw Performed By: #### 3 5200 #### [facility] [address] [place] [address], [facility] MCV (RBC) [Entitic vol] 77.9 fL Low 82.0-98.0 [facility] Comment on above: Order Comment: No: D o not add to previous draw Performed By: #### 3 5200 #### [facility] [address] [place] [address], [facility] Nucleated RBC/100 WBC (Bld) [Ratio] 0 % Normal 0-0 [facility] Comment on above: Order Comment: No: D o not add to previous draw Performed By: #### 3 5200 #### [facility] [address] [place] [address], [facility] PLAT CNT 221 10*3/uL Normal 150-400 [facility] Comment on above: Order Comment: No: D o not add to previous draw Performed By: #### 3 5200 #### [facility] [address] [place] [address], [facility] RBC (Bld) [#/Vol] 3.62 10*6/uL Low 3.80-5.00 [facility] Comment on above: Order Comment: No: D o not add to previous draw Performed By: #### 3 5200 #### [facility] [address] [place] [address], [facility] RDW ---- Normal 11.5-15.0 [facility] Comment on above: Order Comment: No: D o not add to previous draw Result Comment: Prev ious RDW was unable to be calculated Performed By: #### 3 5200 #### [facility] [address] [place] [address], [facility] WBC (Bld) [#/Vol] 11.88 10*3/uL High 4.00-10.60 [facility] Comment on above: Order Comment: No: D o not add to previous draw Performed By: #### 3 5200 #### [facility] [address] [place] [address], [facility] POC GLUCOSE LABon 03-15-2022 Glucose [Mass/Vol] 109 mg/dL High 70-100 [facility] Comment on above: Performed By: #### 8 5499 ####[facility] [place] [address], [facility] POC GLUCOSE LABon 03-14-2022 Glucose [Mass/Vol] 113 mg/dL High 70-100 [facility] Comment on above: Performed By: #### 3 5200 #### [facility] [address] [place] [address], [facility] Glucose [Mass/Vol] 114 mg/dL High 70-100 [facility] Comment on above: Performed By: #### 8 5499 ####[facility] [place] [address], [facility] Glucose [Mass/Vol] 195 mg/dL High 70-100 [facility] Comment on above: Performed By: #### 8 5499 ####[facility] [place] [address], [facility] Glucose [Mass/Vol] 278 mg/dL High 70-100 [facility] Comment on above: Performed By: #### 8 5499 ####[facility] [place] [address], [facility] PORTABLE CHEST 1 VIEWon PORTABLE CHEST 1 VIEW [facility] Department of Radiology [address] [place] [address] Patient Name: LISE CANALES : 1955 Sex: F Age: Race: White Pt. Location: [id number] Patient Status: I Ordered Date: 03/14/2022 6:50:00 [...] pneumothorax. Electronically signed: Tyshawn Tapia. Transcribed by: [email or web address], User Resident: Electronically Signed by: TYSHAWN TAPIA @ 03/14/2022 02:56 PM Normal [facility] Comment on above: Order Comment: Check Chest Tube Position, S/P Chest tube DC'd PORTABLE CHEST 1 VIEW [facility] Department of Radiology [address] [place] [address] Patient Name: LISE CANALES : 1955 Sex: F Age: Race: White Pt. Location: [id number] Patient Status: I Ordered Date: 03/14/2022 2:35:00 [...] chest. Electronically signed: Tyshawn Tapia. Transcribed by: [email or web address], User Resident: Electronically Signed by: TYSHAWN TAPIA @ 03/14/2022 03:31 PM Normal [facility] Comment on above: Order Comment: Check Chest Tube Position, S/P Chest tube DC'd POC GLUCOSE LABon 03-13-2022 Glucose [Mass/Vol] 149 mg/dL High 70-100 [facility] Comment on above: Performed By: #### 8 5499 ####[facility] [place] [address], [place] Glucose [Mass/Vol] 149 mg/dL High 70-100 [facility] Comment on above: Performed By: #### 3 5200 #### [facility] [address] [place] [address], [place] Glucose [Mass/Vol] 163 mg/dL High 70-100 [facility] Comment on above: Performed By: #### 8 5499 ####[facility] [facility] [place] [address], [place] Glucose [Mass/Vol] 282 mg/dL High 70-100 [facility] Comment on above: Performed By: #### 8 5499 ####[facility] [facility] [place] [address] PORTABLE CHEST 1 VIEWon PORTABLE CHEST 1 VIEW [facility] Department of Radiology [address] [place] [address] Patient Name: LISE CANALES : 1955 Sex: F Age: Race: White Pt. Location: [id number] Patient Status: I Ordered Date: 03/13/2022 6:50:00 [...] congestion. Electronically signed: Tyshawn Tapia. Transcribed by: [email or web address], User Resident: Electronically Signed by: TYSHAWN TAPIA @ 03/13/2022 08:34 AM Normal [facility] Comment on above: Order Comment: Evalu ate for Aspiration PORTABLE CHEST 1 VIEW [facility] Department of Radiology [address] [place] [address] Patient Name: LISE CANALES : 1955 Sex: F Age: Race: White Pt. Location: [id number] Patient Status: I Ordered Date: 03/13/2022 4:15:00 PM Completed Date: 03/13/2022 06:14 PM Requesting Provider: GAVIOTA POLANCO Attending Provider: OLI PINEDA Report Copy To: Signs & Symptoms: O2 Desaturation History: Comments: Check Chest Tube Position, s/p chest tube clamp on 03/[address] Gillis Exam: PORTABLE CHEST 1 [...] morning Electronically signed: Avinash Mckay. Transcribed by: [email or web address], User Resident: Electronically Signed by: AVINASH MCKAY @ 03/13/2022 06:20 PM Normal [facility] Comment on above: Order Comment: Check Chest Tube Position, S/P Chest tube DC'd POTASSIUM BLOODon 03-13-2022 Potassium [Moles/Vol] 4.5 mmol/L Normal 3.5-5.1 [facility] Comment on above: Order Comment: No: D o not add to previous draw Performed By: #### 3 5200 #### [facility] [address] [place] [address], [facility] BASIC METABOLIC PANELon Calcium [Mass/Vol] 9.4 mg/dL Normal 8.6-10.3 [facility] Comment on above: Order Comment: Check Chest Tube Position, S/P Chest tube DC'd Performed By: #### 0 0071 ####[facility] [place] [place] [address], [facility] Chloride [Moles/Vol] 98 mmol/L Normal 98-107 [facility] Comment on above: Order Comment: Check Chest Tube Position, S/P Chest tube DC'd Performed By: #### 0 0071 ####[facility] [place] [place] [address], [facility] CO2 [Moles/Vol] 34 mmol/L High 21-31 [facility] Comment on above: Order Comment: Check Chest Tube Position, S/P Chest tube DC'd Performed By: #### 0 0071 ####[facility] [place] [place] [address], [facility] Creatinine [Mass/Vol] 0.56 mg/dL Low 0.60-1.20 [facility] Comment on above: Order Comment: Check Chest Tube Position, S/P Chest tube DC'd Performed By: #### 0 0071 ####[facility] [facility] [place] [address], [facility] GFR/1.73 sq M.predicted among non-blacks MDRD (S/P/Bld) [Vol rate/Area] mL/min/{1.73_m2} Normal >60 [facility] Comment on above: Order Comment: Check Chest Tube Position, S/P Chest tube DC'd Result Comment: [facility]'s estimated glomerular filtration rate (eGFR) will no [...] of individuals. Performed By: #### 0 0071 ####[facility] [place] [address], [facility] Glucose [Mass/Vol] 114 mg/dL High 70-100 [facility] Comment on above: Order Comment: Check Chest Tube Position, S/P Chest tube DC'd Performed By: #### 0 0071 ####[facility] [place] [address], [facility] Potassium [Moles/Vol] 3.3 mmol/L Low 3.5-5.1 [facility] Comment on above: Order Comment: Check Chest Tube Position, S/P Chest tube DC'd Performed By: #### 0 0071 ####[facility] [facility] [place] [address], [facility] Sodium [Moles/Vol] 140 mmol/L Normal 136-145 [facility] Comment on above: Order Comment: Check Chest Tube Position, S/P Chest tube DC'd Performed By: #### 0 0071 ####[facility] [place] [address], [facility] Urea nitrogen [Mass/Vol] 9 mg/dL Normal 7-25 [facility] Comment on above: Order Comment: Check Chest Tube Position, S/P Chest tube DC'd Performed By: #### 0 0071 ####[facility] CBC COMPLETE BLOOD COUNTon 0 03-12-2022 Hematocrit (Bld) [Volume fraction] 35.2 % Low 36.0-45.0 [facility] Comment on above: Order Comment: No: D o not add to previous draw Performed By: #### 3 5200 #### [facility] [address] Hemoglobin (Bld) [Mass/Vol] 10.1 g/dL Low 12.0-15.0 [facility] Comment on above: Order Comment: No: D o not add to previous draw Performed By: #### 3 5200 #### [facility] [address] IMM PLATELET FRAC 3.6 % Normal 0.8-6.3 [facility] Comment on above: Order Comment: No: D o not add to previous draw Performed By: #### 3 5200 #### [facility] [address] [place] [address], [facility] MCH (RBC) [Entitic mass] 21.9 pg Low 27.0-33.0 [facility] Comment on above: Order Comment: No: D o not add to previous draw Performed By: #### 3 5200 #### [facility] [address] [place] [address], [facility] MCHC (RBC) [Mass/Vol] 28.7 g/dL Low 32.0-35.0 [facility] Comment on above: Order Comment: No: D o not add to previous draw Performed By: #### 3 5200 #### [facility] [address] [place] [address], [facility] MCV (RBC) [Entitic vol] 76.2 fL Low 82.0-98.0 [facility] Comment on above: Order Comment: No: D o not add to previous draw Performed By: #### 3 5200 #### [facility] [address] [place] [address], [facility] Nucleated RBC/100 WBC (Bld) [Ratio] 0 % Normal 0-0 [facility] Comment on above: Order Comment: No: D o not add to previous draw Performed By: #### 3 5200 #### [facility] [address] [place] [address], [facility] PLAT CNT 129 10*3/uL Low 150-400 [facility] Comment on above: Order Comment: No: D o not add to previous draw Performed By: #### 3 5200 #### [facility] [address] [place] [place] [address], [facility] RBC (Bld) [#/Vol] 4.62 10*6/uL Normal 3.80-5.00 [facility] Comment on above: Order Comment: No: D o not add to previous draw Performed By: #### 3 5200 #### [facility] [address] [place] [address], [facility] RDW Unable to Calculate Normal 11.5-15.0 [facility] Comment on above: Order Comment: No: D o not add to previous draw Performed By: #### 3 5200 #### [facility] [address] [place] [place] [address], [facility] WBC (Bld) [#/Vol] 11.72 10*3/uL High 4.00-10.60 [facility] Comment on above: Order Comment: No: D o not add to previous draw Performed By: #### 3 5200 #### [facility] [address] [place] [address], [facility] POC GLUCOSE LABon 03-12-2022 Glucose [Mass/Vol] 252 mg/dL High 70-100 [facility] Comment on above: Performed By: #### 3 5200 #### [facility] [address] [place] [address], [facility] POC GLUCOSE LABon 03-11-2022 Glucose [Mass/Vol] 86 mg/dL Normal 70-100 [facility] Comment on above: Performed By: #### 3 5200 #### [facility] [address] [place] [address], [facility] Glucose [Mass/Vol] 122 mg/dL High 70-100 [facility] Comment on above: Performed By: #### 3 5200 #### [facility] [address] [place] [address], [facility] Glucose [Mass/Vol] 121 mg/dL High 70-100 [facility] Comment on above: Performed By: #### 8 5499 ####[facility] [place] [address], [facility] PORTABLE CHEST 1 VIEWon PORTABLE CHEST 1 VIEW [facility] Department of Radiology [address] [place] [id number] Patient Name: LISE CANALES : 1955 Sex: F Age: Race: White Pt. Location: [id number] Patient Status: I Ordered Date: 03/11/2022 3:25:00 [...] abnormalities Electronically signed: Avinash Mckay. Transcribed by: [email or web address], User Resident: Electronically Signed by: AVINASH MCKAY @ 03/11/2022 06:30 PM Normal [facility] Comment on above: Order Comment: Evalu ate for Atelectasis CBC COMPLETE BLOOD COUNTon 0 03-10-2022 Erythrocyte distribution width (RBC) [Ratio] 29.9 % High 11.5-15.0 [facility] Comment on above: Order Comment: No: D o not add to previous draw Performed By: #### 3 5200 #### [facility] [address] [place] [address], [facility] Hematocrit (Bld) [Volume fraction] 32.2 % Low 36.0-45.0 [facility] Comment on above: Order Comment: No: D o not add to previous draw Performed By: #### 3 5200 #### [facility] [address] [place] [address], [facility] Hemoglobin (Bld) [Mass/Vol] 9.2 g/dL Low 12.0-15.0 [facility] Comment on above: Order Comment: No: D o not add to previous draw Performed By: #### 3 5200 #### [facility] [address] [place] [address], [place] IMM PLATELET FRAC 3.4 % Normal 0.8-6.3 [facility] Comment on above: Order Comment: No: D o not add to previous draw Performed By: #### 3 5200 #### [facility] [address] [place] [address], [facility] MCH (RBC) [Entitic mass] 21.9 pg Low 27.0-33.0 [facility] Comment on above: Order Comment: No: D o not add to previous draw Performed By: #### 3 5200 #### [facility] [address] [facility] [place] [address], [facility] MCHC (RBC) [Mass/Vol] 28.6 g/dL Low 32.0-35.0 [facility] Comment on above: Order Comment: No: D o not add to previous draw Performed By: #### 3 5200 #### [facility] [address] [place] [place] [address], [facility] MCV (RBC) [Entitic vol] 76.7 fL Low 82.0-98.0 [facility] Comment on above: Order Comment: No: D o not add to previous draw Performed By: #### 3 5200 #### [facility] [address] [place] [address], [facility] Nucleated RBC/100 WBC (Bld) [Ratio] 0 % Normal 0-0 [facility] Comment on above: Order Comment: No: D o not add to previous draw Performed By: #### 3 5200 #### [facility] [address] [place] [address], [facility] PLAT CNT 124 10*3/uL Low 150-400 [facility] Comment on above: Order Comment: No: D o not add to previous draw Performed By: #### 3 5200 #### [facility] [address] [place] [address], [facility] RBC (Bld) [#/Vol] 4.20 10*6/uL Normal 3.80-5.00 [facility] Comment on above: Order Comment: No: D o not add to previous draw Performed By: #### 3 5200 #### [facility] [address] [place] [address], [facility] WBC (Bld) [#/Vol] 12.68 10*3/uL High 4.00-10.60 [facility] Comment on above: Order Comment: No: D o not add to previous draw Performed By: #### 3 5200 #### [facility] [address] [place] [address], [facility] HEMOGLOBIN A1Con 03-10-2022 Glucose [Moles/Vol] 143 mmol/L Normal [facility] Comment on above: Order Comment: No: D o not add to previous draw Result Comment: Resu lt changed by BSHORT on 03/10/2022 13:15. The previous value was 140. Performed By: #### 3 1791 #### [facility] [address] [facility] [place] [address], [facility] HbA1c (Bld) [Mass fraction] 6.6 % High 4.0-6.0 [facility] Comment on above: Order Comment: No: D o not add to previous draw Result Comment: Resu lt changed by BSHORT on 03/10/2022 13:15. The previous value was 6.5. Performed By: #### 3 1791 #### [facility] [address] [place] [address], [facility] POC GLUCOSE LABon 03-10-2022 Glucose [Mass/Vol] 65 mg/dL Low 70-100 [facility] Comment on above: Performed By: #### 8 5499 ####[facility] [place] [address], [facility] Glucose [Mass/Vol] 147 mg/dL High 70-100 [facility] Comment on above: Performed By: #### 8 5499 ####[facility] [facility] [place] [address], [facility] Glucose [Mass/Vol] 100 mg/dL Normal 70-100 [facility] Comment on above: Performed By: #### 8 5499 ####[facility] [place], [place] [id number] [place] [address] Glucose [Mass/Vol] 107 mg/dL High 70-100 [facility] Comment on above: Performed By: #### 3 5200 #### [facility] [address] [place], [place] [id number] [place] [address] PORTABLE CHEST 1 VIEWon PORTABLE CHEST 1 VIEW [facility] Department of Radiology [address] [place] [address] Patient Name: LISE CANALES : 1955 Sex: F Age: Race: White Pt. Location: [address] [place] [address] Patient Status: I Ordered Date: 03/10/2022 7:40:00 [...] recommended. Electronically signed: Derek Ingram. Transcribed by: [email or web address], User Resident: Electronically Signed by: DEREK INGRAM @ 03/10/2022 12:10 PM Normal [facility] Comment on above: Order Comment: No: D o not add to previous draw *URINE CULTUREon 03-09-2022 *URINE CULTURE Clinical Report: (D) Specimen/Source: URINE/CLEAN VOID URINE Collected: 03/09/2022 01:58 Status: Final Last Updated: 03/10/2022 08:51 ISO (Final) 50,000 - 100,000 Cfu/mL Mixed Lexi: Multiple Organisms present suggest contamination. Suggest Repeat Specimen Normal [facility] Comment on above: Performed By: #### 3 0339 ####[facility] [place] [address], [facility] CBC W/DIFFon 03-09-2022 ABS IMM GRANS 0.1 10*3/uL Normal 0.0-0.2 [facility] Comment on above: Order Comment: Check Chest Tube Position, S/P Chest tube DC'd Performed By: #### 5 0103 ####[facility] [place] [address], [facility] ABS NEUTROPHILS 13.3 10*3/uL High 1.6-7.6 [facility] Comment on above: Order Comment: Check Chest Tube Position, S/P Chest tube DC'd Performed By: #### 5 0103 ####[facility] [facility] [place] [address], [facility] ANISO Moderate Normal [facility] Comment on above: Order Comment: Check Chest Tube Position, S/P Chest tube DC'd Performed By: #### 5 0103 ####[facility] [facility] [place] [address], [facility] Basophils (Bld) [#/Vol] 0.0 10*3/uL Normal 0.0-0.2 [facility] Comment on above: Order Comment: Check Chest Tube Position, S/P Chest tube DC'd Performed By: #### 5 0103 ####[facility] [place] [place] [address], [facility] Basophils/100 WBC (Bld) 0.3 % Normal 0.0-1.0 [facility] Comment on above: Order Comment: Check Chest Tube Position, S/P Chest tube DC'd Performed By: #### 5 0103 ####[facility] [place] [address], [facility] Eosinophils (Bld) [#/Vol] 0.1 10*3/uL Normal 0.0-0.5 [facility] Comment on above: Order Comment: Check Chest Tube Position, S/P Chest tube DC'd Performed By: #### 5 0103 ####[facility] [facility] [place] [address], [facility] Eosinophils/100 WBC (Bld) 0.5 % Normal 0.0-6.0 [facility] Comment on above: Order Comment: Check Chest Tube Position, S/P Chest tube DC'd Performed By: #### 5 3 ####[facility] [facility] Erythrocyte distribution width (RBC) [Ratio] 28.7 % High 11.5-15.0 [facility] Comment on above: Order Comment: Check Chest Tube Position, S/P Chest tube DC'd Performed By: #### 5 0103 ####[facility] Hematocrit (Bld) [Volume fraction] 29.1 % Low 36.0-45.0 [facility] Comment on above: Order Comment: Check Chest Tube Position, S/P Chest tube DC'd Performed By: #### 3 ####[facility] [facility].[address] Hemoglobin (Bld) [Mass/Vol] 8.3 g/dL Low 12.0-15.0 [facility] Comment on above: Order Comment: Check Chest Tube Position, S/P Chest tube DC'd Performed By: #### 5 3 ####[facility] [facility] HYPO Slight Normal [facility] Comment on above: Order Comment: Check Chest Tube Position, S/P Chest tube DC'd Performed By: #### 5 3 ####[facility] IMMATURE GRANS 0.5 % Normal 0.0-1.0 [facility] Comment on above: Order Comment: Check Chest Tube Position, S/P Chest tube DC'd Performed By: #### 5 3 ####[facility] [facility] Lymphocytes (Bld) [#/Vol] 0.8 10*3/uL Low 1.2-4.0 [facility] Comment on above: Order Comment: Check Chest Tube Position, S/P Chest tube DC'd Performed By: #### 5 3 ####[facility] Lymphocytes/100 WBC (Bld) 5.5 % Low 20.0-45.0 [facility] Comment on above: Order Comment: Check Chest Tube Position, S/P Chest tube DC'd Performed By: #### 5 0103 ####[facility] MCH (RBC) [Entitic mass] 21.7 pg Low 27.0-33.0 [facility] Comment on above: Order Comment: Check Chest Tube Position, S/P Chest tube DC'd Performed By: #### 5 3 ####[facility] MCHC (RBC) [Mass/Vol] 28.5 g/dL Low 32.0-35.0 [facility] Comment on above: Order Comment: Check Chest Tube Position, S/P Chest tube DC'd Performed By: #### 5 3 ####[facility] MCV (RBC) [Entitic vol] 76.2 fL Low 82.0-98.0 [facility] Comment on above: Order Comment: Check Chest Tube Position, S/P Chest tube DC'd Performed By: #### 3 ####[facility] Monocytes (Bld) [#/Vol] 1.1 10*3/uL High 0.1-1.0 [facility] Comment on above: Order Comment: Check Chest Tube Position, S/P Chest tube DC'd Performed By: #### 5 3 ####[facility] [address] MONOS 7.3 % Normal 5.0-12.0 [facility] Comment on above: Order Comment: Check Chest Tube Position, S/P Chest tube DC'd Performed By: #### 5 3 ####[facility] [place] [address], [facility] Neutrophils/100 WBC (Bld) 85.9 % High 40.0-72.0 [facility] Comment on above: Order Comment: Check Chest Tube Position, S/P Chest tube DC'd Performed By: #### 5 0103 ####[facility] [id number], [facility] Nucleated RBC/100 WBC (Bld) [Ratio] 0 % Normal 0-0 [facility] Comment on above: Order Comment: Check Chest Tube Position, S/P Chest tube DC'd Performed By: #### 5 0103 ####[facility] [place] [address], [facility] PLAT CNT 149 10*3/uL Low 150-400 [facility] Comment on above: Order Comment: Check Chest Tube Position, S/P Chest tube DC'd Performed By: #### 5 0103 ####[facility] [place] [address], [facility] POIK Slight Normal [facility] Comment on above: Order Comment: Check Chest Tube Position, S/P Chest tube DC'd Performed By: #### 5 3 ####[facility] [place] [address], [facility] POLY Slight Normal [facility] Comment on above: Order Comment: Check Chest Tube Position, S/P Chest tube DC'd Performed By: #### 5 3 ####[facility] [place] [address], [facility] RBC (Bld) [#/Vol] 3.82 10*6/uL Normal 3.80-5.00 [facility] Comment on above: Order Comment: Check Chest Tube Position, S/P Chest tube DC'd Performed By: #### 5 3 ####[facility] [place] [address], [facility] WBC (Bld) [#/Vol] 15.41 10*3/uL High 4.00-10.60 [facility] Comment on above: Order Comment: Check Chest Tube Position, S/P Chest tube DC'd Performed By: #### 5 0103 ####[facility] [place] [address], [facility] COMP METABOLIC PANELon 03-09 Albumin [Mass/Vol] 3.8 g/dL Normal 3.5-5.7 [facility] Comment on above: Order Comment: No: D o not add to previous draw Performed By: #### 3 5200, 78647, 17154, 49930 #### [facility] [address] [place] [id number], [facility] ALKALINE PHOSPH 52 IU/L Normal 34-104 [facility] Comment on above: Order Comment: No: D o not add to previous draw Performed By: #### 3 5200, 03681, 09863, 46825 #### [facility] [address] [place] [address], [facility] ALT [Catalytic activity/Vol] 13 U/L Normal 7-52 [facility] Comment on above: Order Comment: No: D o not add to previous draw Performed By: #### 3 5200, 58605, 80846, 04080 #### [facility] [address] [place] [address], [place] AST [Catalytic activity/Vol] 14 U/L Normal 13-39 [facility] Comment on above: Order Comment: No: D o not add to previous draw Performed By: #### 3 5200, 43713, 89017, 19710 #### [facility] [address] [place] [address], [place] Bilirubin [Mass/Vol] 0.4 mg/dL Normal 0.3-1.0 [facility] Comment on above: Order Comment: No: D o not add to previous draw Performed By: #### 3 5200, 84893, 91413, 72454 #### [facility] [address] [place] [address], [place] Calcium [Mass/Vol] 9.2 mg/dL Normal 8.6-10.3 [facility] Comment on above: Order Comment: No: D o not add to previous draw Performed By: #### 3 5200, 25521, 35477, 94263 #### [facility] [address] [place] [address], [place] Chloride [Moles/Vol] 99 mmol/L Normal 98-107 [facility] Comment on above: Order Comment: No: D o not add to previous draw Performed By: #### 3 5200, 76877, 60474, 69691 #### [facility] [address] [place] [address], [place] CO2 [Moles/Vol] 33 mmol/L High 21-31 [facility] Comment on above: Order Comment: No: D o not add to previous draw Performed By: #### 3 5200, 43185, 15328, 79306 #### [facility] [address] [place] [address], [place] Creatinine [Mass/Vol] 0.79 mg/dL Normal 0.55-1.02 [facility] Comment on above: Order Comment: No: D o not add to previous draw Performed By: #### 3 5200, 94917, 48222, 06110 #### [facility] [address] [place] [address], [place] Performed By: #### B LDCX1 #### [facility] [address] [place] [address] Dr. Kayley Hatfield GFR/1.73 sq M.predicted among non-blacks MDRD (S/P/Bld) [Vol rate/Area] mL/min/{1.73_m2} Normal >60 [facility] Comment on above: Order Comment: No: D o not add to previous draw Result Comment: [facility]'s estimated glomerular filtration rate (eGFR) will no [...] of individuals. Performed By: #### 3 5200, 73540, 99473, 19837 #### [facility] [address] [place] [address], [place] Glucose [Mass/Vol] 125 mg/dL High 70-100 [facility] Comment on above: Order Comment: No: D o not add to previous draw Performed By: #### 3 5200, 87018, 63513, 65896 #### [facility] [address] [place] [address], [place] Potassium [Moles/Vol] 4.7 mmol/L Normal 3.5-5.1 [facility] Comment on above: Order Comment: No: D o not add to previous draw Performed By: #### 3 0, 87724, 15007, 55387 #### [facility] [address] [place] [address], [place] Protein [Mass/Vol] 5.9 g/dL Low 6.0-8.3 [facility] Comment on above: Order Comment: No: D o not add to previous draw Performed By: #### 3 5200, 42358, 55359, 33156 #### [facility] [address] [place] [address], [place] Sodium [Moles/Vol] 136 mmol/L Normal 136-145 [facility] Comment on above: Order Comment: No: D o not add to previous draw Performed By: #### 3 0, 60015, 71118, 87466 #### [facility] [address] [place] [address], [facility] Urea nitrogen [Mass/Vol] 12 mg/dL Normal 7-25 [facility] Comment on above: Order Comment: No: D o not add to previous draw Performed By: #### 3 5200, 33350, 50594, 98550 #### [facility] [address] [place] [address], [facility] LIPID PROFILEon 03-09-2022 Cholesterol [Mass/Vol] 160 mg/dL Normal 120-200 [facility] Comment on above: Order Comment: No: D o not add to previous draw Result Comment: CHOL ESTEROL REFERENCE RANGE: 20 YEARS AND OLDER CARDIOVASCULAR RISK Less than 200 mg/dl Low Risk 200 to 239 mg/dl Borderline Risk 240 mg/dl and greater High Risk Performed By: #### 3 5200, 44946, 14736, 37281 #### [facility] [address] [place] [address], [facility] Cholesterol in HDL [Mass/Vol] 76 mg/dL Normal 23-92 [facility] Comment on above: Order Comment: No: D o not add to previous draw Result Comment: Slig ht variation in normal range could be due to gender and/or age. HDL CHOLESTEROL REFERENCE RANGE: 20 years and older Cardiovascular Risk > or =60 mg/dL Desirable 40 TO 59 mg/dL Low Risk <40 mg/dL High Risk Performed By: #### 3 5200, 14082, 95787, 26065 #### [facility] [address] [place] [address], [facility] Cholesterol in LDL [Mass/Vol] 48 mg/dL Normal 0-130 [facility] Comment on above: Order Comment: No: D o not add to previous draw Result Comment: LDL IS A CALCULATION LDL IS ONLY VALID IF THE TRIG IS LESS THAN 400. Performed By: #### 3 5200, 71642, 08512, 56237 #### [facility] [address] [place] [address], [place] Cholesterol.total/Cho lesterol in HDL [Mass ratio] 2.1 {ratio} Normal .0-4.5 [facility] Comment on above: Order Comment: No: D o not add to previous draw Performed By: #### 3 5200, 22226, 76294, 41269 #### [facility] [address] NON-HDL CHOLESTEROL 84 mg/dL Normal [facility] Comment on above: Order Comment: No: D o not add to previous draw Performed By: #### 3 5200, 92194, 55683, 80796 #### [facility] [address] Triglyceride [Mass/Vol] 179 mg/dL High 40-149 [facility] Comment on above: Order Comment: No: D o not add to previous draw Result Comment: TRIG LYCERIDE REFERENCE RANGE: 20 YEARS AND OLDER CARDIOVASCULAR RISK LESS THAN 150 mg/dl LOW RISK 150 TO 199 mg/dl BORDERLINE RISK 200 mg/dl AND GREATER HIGH RISK Performed By: #### 3 5200, 39783, 68843, 91624 #### [facility] [address] VLDL CHOL 36 mg/dL Normal 0-40 [facility] Comment on above: Order Comment: No: D o not add to previous draw Performed By: #### 3 5200, 82597, 90343, 63213 #### [facility] [address] POC GLUCOSE LABon 03-09-2022 Glucose [Mass/Vol] 105 mg/dL High 70-100 [facility] Comment on above: Performed By: #### 8 5499 ####[facility] POC SARS COV2 ANTIGEN NEGATI VEon 03-09-2022 POC SARS COV2 ANTIGEN NEG Negative Normal NEGATIVE [facility] Comment on above: Result Comment: Nega tive [...] antigen from SARS-CoV-2 in direct nasopharyngeal swab (BODY PRESSER) specimens from individuals who are suspected of [...] of Accreditation. Performed By: #### 3 2044 ####[address] PORTABLE CHEST 1 VIEWon 09-0 PORTABLE CHEST 1 VIEW [facility] Department of Radiology [address] [place] [id number] Patient Name: LISE CANALES : 1955 Sex: F Age: Race: White Pt. Location: [id number] Patient Status: I Ordered Date: 03/09/2022 8:55:00 [...] COPD. Electronically signed: Derek Ingram. Transcribed by: [email or web address], User Resident: Electronically Signed by: DEREK INGRAM @ 03/09/2022 02:48 PM Normal [facility] Comment on above: Order Comment: Check Chest Tube Position, S/P Chest tube DC'd TROPONIN-Ion 03-09-2022 Troponin I.cardiac [Mass/Vol] 0.00 ng/mL Normal 0.00-0.04 [facility] Comment on above: Order Comment: No: D o not add to previous draw Result Comment: REFE RENCE RANGES: 0.00 - 0.04 ng/ml NORMAL 0.05 - 0.50 ng/ml INDETERMINATE > 0.50 ng/ml CONSISTENT WITH AN M.I. Performed By: #### 3 5200, 21160, 59250, 60304 #### [facility] [address] [place] [address], [facility] Troponin I.cardiac [Mass/Vol] 0.01 ng/mL Normal 0.00-0.04 [facility] Comment on above: Order Comment: No: D o not add to previous draw Result Comment: REFE RENCE RANGES: 0.00 - 0.04 ng/ml NORMAL 0.05 - 0.50 ng/ml INDETERMINATE > 0.50 ng/ml CONSISTENT WITH AN M.I. Performed By: #### 3 5200 #### [facility] [address] [place] [address], [facility] Troponin I.cardiac [Mass/Vol] 0.00 ng/mL Normal 0.00-0.04 [facility] Comment on above: Order Comment: No: D o not add to previous draw Result Comment: REFE RENCE RANGES: 0.00 - 0.04 ng/ml NORMAL 0.05 - 0.50 ng/ml INDETERMINATE > 0.50 ng/ml CONSISTENT WITH AN M.I. Performed By: #### 3 5200, 40456, 95063, 99781 #### [facility] [address] [facility] [address] [address] TSH3 WITH REFLEX FT4on 03-09 TSH 3RD GENERATION 0.60 uIU/mL Normal 0.34-5.60 [facility] Comment on above: Order Comment: No: D o not add to previous draw Performed By: #### 3 5200, 85809, 36692, 54279 #### [facility] [address] [place] [address], [facility] URINALYSIS REFLEXon 03-09-20 Appearance (U) CLEAR Normal CLEAR [facility] Comment on above: Order Comment: Check Chest Tube Position, S/P Chest tube DC'd Performed By: #### 3 0965 ####[facility] [place] [address], [facility] Bilirubin Ql (U) Negative Normal NEGATIVE [facility] Comment on above: Order Comment: Check Chest Tube Position, S/P Chest tube DC'd Performed By: #### 3 0965 ####[facility] [place] [address], [facility] Color (U) STRAW Abnormal YELLOW [facility] Comment on above: Order Comment: Check Chest Tube Position, S/P Chest tube DC'd Performed By: #### 3 0965 ####[facility] [place] [address], [facility] EPIS OCC Normal FEW,OCC,NONE SEEN [facility] Comment on above: Order Comment: Check Chest Tube Position, S/P Chest tube DC'd Performed By: #### 3 0965 ####[facility] [place] [address], [facility] Glucose Ql (U) Negative Normal NEGATIVE [facility] Comment on above: Order Comment: Check Chest Tube Position, S/P Chest tube DC'd Performed By: #### 3 0965 ####[facility] [place] [address], [facility] Hemoglobin Ql (U) MODERATE Abnormal NEGATIVE [facility] Comment on above: Order Comment: Check Chest Tube Position, S/P Chest tube DC'd Performed By: #### 3 0965 ####[facility] [place] [address], [facility] KETONE Negative Normal NEGATIVE [facility] Comment on above: Order Comment: Check Chest Tube Position, S/P Chest tube DC'd Performed By: #### 3 0965 ####[facility] [place] [address], [facility] LEUK SHARMIN SMALL Abnormal NEGATIVE [facility] Comment on above: Order Comment: Check Chest Tube Position, S/P Chest tube DC'd Performed By: #### 3 0965 ####[facility] [facility].[address] MUCUS THREADS OCC Abnormal NONE SEEN [facility] Comment on above: Order Comment: Check Chest Tube Position, S/P Chest tube DC'd Performed By: #### 3 0965 ####[facility] Nitrite Ql (U) Negative Normal NEGATIVE [facility] Comment on above: Order Comment: Check Chest Tube Position, S/P Chest tube DC'd Performed By: #### 3 0965 ####[facility] pH (U) 6.0 [pH] Normal 5.0-8.0 [facility] Comment on above: Order Comment: Check Chest Tube Position, S/P Chest tube DC'd Performed By: #### 3 0965 ####[place] [id number] [address] Protein Ql (U) Negative Normal NEGATIVE [facility] Comment on above: Order Comment: Check Chest Tube Position, S/P Chest tube DC'd Performed By: #### 3 0965 ####[facility] RBC 6-10 Abnormal NONE SEEN [facility] Comment on above: Order Comment: Check Chest Tube Position, S/P Chest tube DC'd Performed By: #### 3 0965 ####[facility] SPEC GRAV 1.015 Normal 1.015-1.020 [facility] Comment on above: Order Comment: Check Chest Tube Position, S/P Chest tube DC'd Performed By: #### 3 0965 ####[address] WBC UA 11-20 Abnormal NONE SEEN [facility] Comment on above: Order Comment: Check Chest Tube Position, S/P Chest tube DC'd Performed By: #### 3 0965 ####[facility] [facility] [address] CBC W MANUAL DIFFon 03-08-20 22 ATYPICAL LYMPH # Normal [facility] Comment on above: Performed By: #### C VDTBH #### [facility] [address] [place] [address] Dr. Kayley Hatfield ATYPICAL LYMPH % Normal [facility] Comment on above: Performed By: #### C VDTBH #### [facility] [address] [place] [address] Dr. Kayley Hatfield BAND # Normal 0.0-0.3 [facility] Comment on above: Performed By: #### C VDTBH #### [facility] [address] [place] [address] Dr. Kayley Hatfield BAND % Normal 0-5 [facility] Comment on above: Performed By: #### C VDTBH #### [facility] [address] [place] [address] Dr. Kayley Hatfield BASOM # 0.00 103/ul Normal 0.00-0.10 [facility] Comment on above: Performed By: #### C VDTBH #### [facility] [address] [place] [address] Dr. Kayley Hatfield BASOM % 0.0 % Critically low 0.2-2.0 [facility] Comment on above: Performed By: #### C VDTBH #### [facility] [address] [place] [address] Dr. Kayley Hatfield BLAST # Normal [facility] Comment on above: Performed By: #### C VDTBH #### [facility] [address] [place] [address] Dr. Kayley Hatfield BLAST % Normal [facility] Comment on above: Performed By: #### C VDTBH #### [facility] [address] [place] [address] Dr. Kayley Hatfield CORRECTED WBC Normal 4.0-11.0 [facility] Comment on above: Performed By: #### C VDTBH #### [facility] [address] [address] [address] Kayley Hatfield EOS # 0.14 103/ul Normal 0.00-0.70 [facility] Comment on above: Performed By: #### C VDTBH #### [facility] [address] [address] [address] Kayley Hatfield EOS% 1.0 % Normal 0.9-7.0 [facility] Comment on above: Performed By: #### C VDTBH #### [facility] [address] [address] [address] Kayley Hatfield HCT 27.5 % Critically low 36.0-48.0 [facility] Comment on above: Performed By: #### C VDTBH #### [facility] [address] [address] [address] Kayley Hatfield HGB 7.9 g/dl Critically low 12.0-16.0 [facility] Comment on above: Performed By: #### C VDTBH #### [facility] [address] [address] [address] Kayley Hatfield LYMPHM # 1.42 103/ul Normal 1.20-3.80 [facility] Comment on above: Performed By: #### C VDTBH #### [facility] [address] [address] [address] Kayley Hatfield LYMPHM% 10.0 % Critically low 20.5-60.[address] [facility] Comment on above: Performed By: #### C VDTBH #### [facility] [address] [address] [address] Kayley Hatfield MCH 21.5 pg Critically low 26.7-34.[address] [facility] Comment on above: Performed By: #### C VDTBH #### [facility] [address] [address] [address] Kayley Hatfield MCHC 28.7 g/dl Critically low 29.9-35.[address] [facility] Comment on above: Performed By: #### C VDTBH #### [facility] [address] [place] [address] Dr. Kayley Hatfield MCV 74.7 fL Critically low 81.0-99.0 [facility] Comment on above: Performed By: #### C VDTBH #### [facility] [address] [place] [address] Dr. Kayley Hatfield METAMYELOCYTE # Normal [facility] Comment on above: Performed By: #### C VDTBH #### [facility] [address] [place] [address] Dr. Kayley Hatfield METAMYELOCYTE % Normal [facility] Comment on above: Performed By: #### C VDTBH #### [facility] [address] [place] [address] Dr. Kayley Hatfield MONOM# 2.13 103/ul Critically high 0.30-0.80 [facility] Comment on above: Performed By: #### C VDTBH #### [facility] [address] [place] [address] Dr. Kayley Hatfield MONOM% 15.0 % Critically high 1.7-12.0 [facility] Comment on above: Performed By: #### C VDTBH #### [facility] [address] [place] [address] Dr. Kayley Hatfield MPV 9.5 fL Normal 9.5-13.5 [facility] Comment on above: Performed By: #### C VDTBH #### [facility] [address] [place] [address] Dr. Kayley Hatfield MYELOCYTE # Normal [facility] Comment on above: Performed By: #### C VDTBH #### [facility] [address] [place] [address] Dr. Kayley Hatfield MYELOCYTE % Normal The [facility] Comment on above: Performed By: #### C VDTBH #### [facility] [address] [place] [address] Dr. Kayley Hatfield NRBC Normal [facility] Comment on above: Performed By: #### C VDTBH #### [facility] [address] [place] [address] Dr. Kayley Hatfield PLT 180 103/ul Normal 150-450 The [facility] Comment on above: Performed By: #### C VDTBH #### [facility] [address] [address] [address] Kayley Hatfield RBC 3.68 106/ul Critically low 4.20-5.40 [facility] Comment on above: Performed By: #### C VDTBH #### [facility] [address] [address] [address] Kayley Hatfield RDW 27.5 % Critically high 11.0-15.0 [facility] Comment on above: Performed By: #### C VDTBH #### [facility] [address] [address] [address] Kayley Hatfield SEG # 10.51 103/ul Critically high 1.40-6.50 [facility] Comment on above: Performed By: #### C VDTBH #### [facility] [address] [address] [address] Kayley Hatfield SEG % 74.0 % Normal 43.0-75.0 [facility] Comment on above: Performed By: #### C VDTBH #### [facility] [address] [address] [address] Kayley Hatfield WBC 14.2 103/ul Critically high 4.0-11.0 [facility] Comment on above: Performed By: #### C VDTBH #### [facility] [address] [address] [address] Kayley Hatfield PRBC LEUKOREDUCEDon 03-08-20 22 ABO and Rh group Nom (Bld) Cross Match Result Compatible Unit Blood Type O Pos Unit Number [id number] Status Information Transfused Product ID Red Blood Cells Product Code [id number] Cross Match Result Compatible Blood Bank Notes CALLED TO VIC IN ICU @1657 Unit Blood Type O Pos Unit Number [id number] Status Information Transfused Product ID Red Blood Cells Product Code [id number] Normal [facility] Comment on above: Performed By: #### P RBC #### [facility] [address] [address] [address] Kayley Hatfield PROF CHEM 8 (BAS METB)on Anion gap [Moles/Vol] 10.1 mmol/L Normal [facility] Comment on above: Performed By: #### B LDCX1 #### [facility] [address] [address] [address] Kayley Hatfield Calcium [Mass/Vol] 8.8 mg/dL Normal 8.5-10.1 [facility] Comment on above: Performed By: #### B LDCX1 #### [facility] [address] [address] [address] Kayley Hatfield Chloride [Moles/Vol] 100 mmol/L Normal 98-107 [facility] Comment on above: Performed By: #### B LDCX1 #### [facility] [address] [place] [address] Dr. Kayley Hatfield CO2 [Moles/Vol] 34.2 mmol/L Critically high 21.0-32.0 [facility] Comment on above: Performed By: #### B LDCX1 #### [facility] [address] [address] [address] Kayley Hatfield EGFR-AF MONEGASQUE >60 Normal >=60 [facility] Comment on above: Performed By: #### B LDCX1 #### [facility] [address] [address] [address] Kayley Hatfield EGFR-NON AF MONEGASQUE >60 Normal >=60 [facility] Comment on above: Performed By: #### B LDCX1 #### [facility] [address] [address] [address] Kayley Hatfield Glucose [Mass/Vol] 107 mg/dL Critically high 74-106 [facility] Comment on above: Performed By: #### B LDCX1 #### [facility] [address] [address] [address] Kayley Hatfield Potassium [Moles/Vol] 4.3 mmol/L Normal 3.5-5.1 [facility] Comment on above: Performed By: #### B LDCX1 #### [facility] [address] [address] [address] Kayley Hatfield Sodium [Moles/Vol] 140 mmol/L Normal 136-145 [facility] Comment on above: Performed By: #### B LDCX1 #### [facility] [address] [address] [address] Kayley Hatfield Urea nitrogen [Mass/Vol] 15.0 mg/dL Normal 7.0-18.0 [facility] Comment on above: Performed By: #### B LDCX1 #### [facility] [address] [address] [address] Kayley Hatfield Urea nitrogen/Creatinine [Mass ratio] 19.0 mg/mg Normal [facility] Comment on above: Performed By: #### B LDCX1 #### [facility] [address] [place] [address] Dr. Kayley Hatfield XR CHEST 1 Von [...] MIGUE REYNOSO Date: 2022-03-08 07:02 Normal The [facility] CBC W MANUAL DIFFon 03-07-20 22 ACANTHOCYTES SLIGHT Normal The [facility] Comment on above: Performed By: #### B LDCX1 #### [facility] [address] [address] [address] Kayley Hatfield ANISOCYTOSIS 2+ Normal The [facility] Comment on above: Performed By: #### B LDCX1 #### [facility] [address] [address] [address] Kayley Hatfield ATYPICAL LYMPH # Normal [facility] Comment on above: Performed By: #### B LDCX1 #### [facility] [address] [address] [address] Kayley Hatfield ATYPICAL LYMPH % Normal [facility] Comment on above: Performed By: #### B LDCX1 #### [facility] [address] [address] [address] Kayely Hatfield BAND # 0.0 103/ul Normal 0.0-0.3 [facility] Comment on above: Performed By: #### B LDCX1 #### [facility] [address] [address] [address] Kayley Hatfield BAND % 0 % Normal 0-5 [facility] Comment on above: Performed By: #### B LDCX1 #### [facility] [address] [place] [address] Dr. Kayley Hatfield BASOM # 0.00 103/ul Normal 0.00-0.10 [facility] Comment on above: Performed By: #### B LDCX1 #### [facility] [address] [place] [address] Dr. Kayley Hatfield BASOM % 0.0 % Critically low 0.2-2.[address] [facility] Comment on above: Performed By: #### B LDCX1 #### [facility] [address] [place] [address] Dr. Kayley Hatfield BLAST # Normal The [facility] Comment on above: Performed By: #### B LDCX1 #### [facility] [address] [place] [address] Dr. Kayley Hatfield BLAST % Normal The [facility] Comment on above: Performed By: #### B LDCX1 #### [facility] [address] [place] [address] Dr. Kayley Hatfield ANDREE CELLS SLIGHT Normal The [facility] Comment on above: Performed By: #### B LDCX1 #### [facility] [address] [place] [address] Dr. Kayley Hatfield CORRECTED WBC Normal 4.0-11.0 [facility] Comment on above: Performed By: #### B LDCX1 #### [facility] [address] [address] [address] Kayley Hatfield EOS # 0.16 103/ul Normal 0.00-0.70 The [facility] Comment on above: Performed By: #### B LDCX1 #### [facility] [address] [address] [address] Kayley Hatfield EOS% 1.0 % Normal 0.9-7.0 The [facility] Comment on above: Performed By: #### B LDCX1 #### [facility] [address] [place] [address] Dr. Kayley Hatfield GIANT PLATELETS SEEN Normal [facility] Comment on above: Performed By: #### B LDCX1 #### [facility] [address] [place] [address] Dr. Kayley Hatfiedl HCT 31.1 % Critically low 36.0-48.0 [facility] Comment on above: Performed By: #### B LDCX1 #### [facility] [address] [place] [address] Dr. Kayley Hatfield HGB 9.1 g/dl Critically low 12.0-16.[address] [facility] Comment on above: Performed By: #### B LDCX1 #### [facility] [address] [place] [address] Dr. Kayley Hatfield HYPOCHROMASIA 1+ Normal [facility] Comment on above: Performed By: #### B LDCX1 #### [facility] [address] [address] [address] Kayley Hatfield LYMPHM # 2.09 103/ul Normal 1.20-3.80 The [facility] Comment on above: Performed By: #### B LDCX1 #### [facility] [address] [place] [address] Dr. Kayley Hatfield LYMPHM% 13.0 % Critically low 20.5-60.[address] [facility] Comment on above: Performed By: #### B LDCX1 #### [facility] [address] [place] [address] Dr. Kayley Hatfield MCH 21.4 pg Critically low 26.7-34.0 [facility] Comment on above: Performed By: #### B LDCX1 #### [facility] [address] [place] [address] Dr. Kayley Hatfield MCHC 29.3 g/dl Critically low 29.9-35.2 [facility] Comment on above: Performed By: #### B LDCX1 #### [facility] [address] [place] [address] Dr. Kayley Hatfield MCV 73.0 fL Critically low 81.0-99.0 [facility] Comment on above: Performed By: #### B LDCX1 #### [facility] [address] [place] [address] Dr. Kayley Hatfield METAMYELOCYTE # Normal [facility] Comment on above: Performed By: #### B LDCX1 #### [facility] [address] [place] [address] Dr. Kayley Hatfield METAMYELOCYTE % Normal [facility] Comment on above: Performed By: #### B LDCX1 #### [facility] [address] [place] [address] Dr. Kayley Hatfield MICROCYTOSIS SLIGHT Normal The [facility] Comment on above: Performed By: #### B LDCX1 #### [facility] [address] [place] [address] Dr. Kayley Hatfield MONOM# 0.48 103/ul Normal 0.30-0.80 The [facility] Comment on above: Performed By: #### B [id number] #### [facility] [address] [place] [address] Dr. Kayley Hatfield MONOM% 3.0 % Normal 1.7-12.0 [facility] Comment on above: Performed By: #### B [id number] #### [facility] [address] [place] [address] Dr. Kayley Hatfield MPV 8.9 fL Critically low 9.5-13.5 [facility] Comment on above: Performed By: #### B [id number] #### [facility] [address] [address] [address] Kayley Hatfield MYELOCYTE # Normal [facility] Comment on above: Performed By: #### B [id number] #### [facility] [address] [address] [address] Kayley Hatfield MYELOCYTE % Normal [facility] Comment on above: Performed By: #### B [id number] #### [facility] [address] [address] [address] Kayley Hatfield NRBC Normal [facility] Comment on above: Performed By: #### B [id number] #### [facility] [address] [address] [address] Kayley Hatfield PLT 243 103/ul Normal 150-450 [facility] Comment on above: Performed By: #### B [id number] #### [facility] [address] [place] [address] Dr. Kayley Hatfield RBC 4.26 106/ul Normal 4.20-5.40 [facility] Comment on above: Performed By: #### B [id number] #### [facility] [address] [place] [address] Dr. Kayley Hatfield RDW 27.1 % Critically high 11.0-15.0 [facility] Comment on above: Performed By: #### B [id number] #### [facility] [address] [address] [address] Kayley Hatfield SEG # 13.36 103/ul Critically high 1.40-6.50 [facility] Comment on above: Performed By: #### B LDCX1 #### [facility] [address] [place] [address] Dr. Kayley Hatfield SEG % 83.0 % Critically high 43.0-75.0 [facility] Comment on above: Performed By: #### B LDCX1 #### [facility] [address] [place] [address] Dr. Kayley Hatfield WBC 16.1 103/ul Critically high 4.0-11.0 [facility] Comment on above: Performed By: #### B [id number] #### [facility] [address] [place] [address] CHEST WO CONon [...] ASAEL MALDONADO Date: 2022-03-07 09:42 Normal [facility] HEMOGLOBIN AND HEMATOCRITon 03-07-2022 Hematocrit (Bld) [Volume fraction] 31.8 % Critically low 36.0-48.0 [facility] Comment on above: Performed By: #### H GBHCT #### [facility] [address] [address] [address] Kayley Hatfield Hemoglobin (Bld) [Mass/Vol] 9.5 g/dL Critically low 12.0-16.0 [facility] Comment on above: Performed By: #### H GBHCT #### [facility] [address] [place] [address] Dr. Kayley Hatfield RETICULOCYTEon 03-07-2022 RETIC 1.92 % Normal 0.60-3.10 [facility] Comment on above: Performed By: #### O BSCRN #### [facility] [address] [place], [place] [id number] Dr. Kayley Hatfield XR CHEST 1 Von [...] ASAEL MALDONADO Date: 2022-03-07 07:10 Normal [facility] XR CHEST 1 V EXAM: XR CHEST [...] ASAEL MALDONADO Date: 2022-03-07 12:54 Normal [facility] BNPon 03-06-2022 Natriuretic peptide B (Bld) [Mass/Vol] 441.0 pg/mL Normal <=900.0 [facility] Comment on above: Performed By: #### H GBHCT #### [facility] [address] [place] [address] Dr. Kayley Hatfield CBC AUTO DIFFon 03-06-2022 BASO # 0.1 103/ul Normal 0.0-0.1 [facility] Comment on above: Performed By: #### O BSCRN #### [facility] [address] [place] [address] Dr. Kayley Hatfield Basophils/100 WBC (Bld) 0.7 % Normal 0.2-2.0 [facility] Comment on above: Performed By: #### O BSCRN #### [facility] [address] [place] [address] Dr. Kayley Hatfield EO # 0.1 103/ul Normal 0.0-0.7 [facility] Comment on above: Performed By: #### O BSCRN #### [facility] [address] [place] [address] Dr. Kayley Hatfield Eosinophils/100 WBC (Bld) 0.7 % Critically low 0.9-7.0 [facility] Comment on above: Performed By: #### O BSCRN #### [facility] [address] [place] [address] Dr. Kayley Hatfield Erythrocyte distribution width (RBC) [Ratio] 20.0 % Critically high 11.0-15.0 [facility] Comment on above: Performed By: #### O BSCRN #### [facility] [address] [place] [address] Dr. Kayley Hatfield Hematocrit (Bld) [Volume fraction] 20.1 % Critically low 36.0-48.0 [facility] Comment on above: Performed By: #### O BSCRN #### [facility] [address] [place] [address] Dr. Kayley Hatfield Hemoglobin (Bld) [Mass/Vol] 4.9 g/dL Critically low 12.0-16.0 [facility] Comment on above: Performed By: #### O BSCRN #### [facility] [address] [place] [address] Dr. Kayley Hatfield IG # 0.12 10e3/ul Critically high 0.00-0.03 [facility] Comment on above: Performed By: #### O BSCRN #### [facility] [address] [address] [address] Kayley Hatfield IG % 0.8 % Critically high 0.0-0.5 [facility] Comment on above: Performed By: #### O BSCRN #### [facility] [address] [address] [address] Kayley Hatfield LYMPH # 1.0 103/ul Critically low 1.2-3.8 [facility] Comment on above: Performed By: #### O BSCRN #### [facility] [address] [place] [address] Dr. Kayley Hatfield Lymphocytes/100 WBC (Bld) 6.5 % Critically low 20.5-60.0 [facility] Comment on above: Performed By: #### O BSCRN #### [facility] [address] [place] [address] Dr. Kayley Hatfield MANUAL DIFF REQ NO Normal [facility] Comment on above: Performed By: #### O BSCRN #### [facility] [address] [place] [address] Dr. Kayley Hatfield MCH (RBC) [Entitic mass] 15.2 pg Critically low 26.7-34.0 [facility] Comment on above: Performed By: #### O BSCRN #### [facility] [address] [place] [address] Dr. Kayley Hatfield MCHC (RBC) [Mass/Vol] 24.4 g/dL Critically low 29.9-35.2 [facility] Comment on above: Performed By: #### O BSCRN #### [facility] [address] [place] [address] Dr. Kayley Hatfield MCV (RBC) [Entitic vol] 62.2 fL Critically low 81.0-99.0 [facility] Comment on above: Performed By: #### O BSCRN #### [facility] [address] [place] [address] Dr. Kayley Hatfield MONO # 0.5 103/ul Normal 0.3-0.8 [facility] Comment on above: Performed By: #### O BSCRN #### [facility] [address] [address] [address] Kayley Hatfield Monocytes/100 WBC (Bld) 3.5 % Normal 1.7-12.0 [facility] Comment on above: Performed By: #### O BSCRN #### [facility] [address] [address] [address] Kayley Hatfield NEUT # 13.2 103/ul Critically high 1.4-6.5 [facility] Comment on above: Performed By: #### O BSCRN #### [facility] [address] [place] [address] Dr. Kayley Hatfield Neutrophils/100 WBC (Bld) 87.8 % Critically high 43.0-75.0 [facility] Comment on above: Performed By: #### O BSCRN #### [facility] [address] [place] [address] Dr. Kayley Hatfield Platelet mean volume (Bld) [Entitic vol] 9.1 fL Critically low 9.5-13.5 [facility] Comment on above: Performed By: #### O BSCRN #### [facility] [address] [place] [address] Dr. Kayley Hatfield PLT 384 103/ul Normal 150-450 [facility] Comment on above: Performed By: #### O BSCRN #### [facility] [address] [place] [address] Dr. Kayley Hatfield RBC 3.23 106/ul Critically low 4.20-5.40 [facility] Comment on above: Performed By: #### O BSCRN #### [facility] [address] [place] [address] Dr. Kayley Hatfield WBC 15.1 103/ul Critically high 4.0-11.0 [facility] Comment on above: Performed By: #### O BSCRN #### [facility] [address] [place] [address] Dr. Kayley Hatfield CULTURE BLOODon 03-06-2022 Microscopic examination of blood, culture Culture Observations: NO GROWTH AT 5 DAYS. Normal [facility] Comment on above: Performed By: #### C VDTBH #### [facility] [address] [place] [address] Dr. Kayley Hatfield Performed By: #### B [id number] #### [facility] [address] [place] [address] Dr. Kayley Hatfield Covid-19 PCR ([facility])on 02-07 SARS-CoV-2 (COVID-19) RNA ELBA+probe Ql (Unsp spec) Not detected Normal NOT DETECTED [facility] Comment on above: Result Comment: When diagnostic [...] for this test is supported by the [place] of [employer] and Human Service's declaration that [...] used). Performed By: #### C VDTBH #### [facility] [address] [place] [address] Dr. Kayley Hatfield ER URINE PROFILEon 2 Bilirubin Ql (U) Negative Normal NEGATIVE [facility] Comment on above: Performed By: #### P RBC #### [facility] [address] [place] [address] Dr. Kayley Hatfield Clarity (U) CLEAR Normal CLEAR [facility] Comment on above: Performed By: #### P RBC #### [facility] [address] [place] [address] Dr. Kayley Hatfield Color (U) LT. YELLOW Normal YELLOW [facility] Comment on above: Performed By: #### P RBC #### [facility] [address] [address] [address] Kayley [place] A micrscopic examination will be performed if indicated. Normal [facility] Comment on above: Performed By: #### P RBC #### [facility] [address] [address] [address] Kayley Hatfield Glucose Ql (U) Negative Normal NEGATIVE [facility] Comment on above: Performed By: #### P RBC #### [facility] [address] [address] [address] Kayley Hatfield Hemoglobin Ql (U) Negative Normal NEGATIVE [facility] Comment on above: Performed By: #### P RBC #### [facility] [address] [place] [address] Dr. Kayley Hatfield Ketones Ql (U) Negative Normal NEGATIVE [facility] Comment on above: Performed By: #### P RBC #### [facility] [address] [place] [address] Dr. Kayley Hatfield LEUKOCYTES Negative Normal NEGATIVE [facility] Comment on above: Performed By: #### P RBC #### [facility] [address] [address] [address] Kayley Hatfield Nitrite Ql (U) Negative Normal NEGATIVE [facility] Comment on above: Performed By: #### P RBC #### [facility] [address] [place] [address] Dr. Kayley Hatfield pH (U) 6.0 [pH] Normal 5-9 [facility] Comment on above: Performed By: #### P RBC #### [facility] [address] [place] [address] Dr. Kayley Hatfield SPEC GRAVITY 1.010 Normal 1.005-<=1.025 [facility] Comment on above: Performed By: #### P RBC #### [facility] [address] [place] [address] Dr. Kayley Hatfield UA PROTEIN Negative Normal NEGATIVE/ TRACE The [facility] Comment on above: Performed By: #### P RBC #### [facility] [address] [place] [address] Dr. Kayley Hatfield UR MICRO IND NOT INDICATED Normal [facility] Comment on above: Performed By: #### P RBC #### [facility] [address] [place] [address] Dr. Kayley Hatfield Urobilinogen Qn (U) 0.2 {Lu'U}/dL Normal 0.2 - 1. 0 [facility] Comment on above: Performed By: #### P RBC #### [facility] [address] [place] [address] Dr. Kayley Hatfield FERRITINon 03-06-2022 Ferritin [Mass/Vol] 4.0 ng/mL Critically low 8.0-252.0 [facility] Comment on above: Performed By: #### O BSCRN #### [facility] [address] [place] [address] Dr. Kayley Hatfield IRON AND TIBCon 03-06-2022 % SATURATION 2.3 % Normal [facility] Comment on above: Performed By: #### C VDTBH #### [facility] [address] [place] [address] Dr. Kayley Hatfield Iron [Mass/Vol] 12.0 ug/dL Critically low 50.0-170.0 [facility] Comment on above: Performed By: #### C VDTBH #### [facility] [address] [place] [address] Dr. Kayley Hatfield TIBC DIRECT 532.0 ug/dL Critically high 250.0-450.0 [facility] Comment on above: Performed By: #### C VDTBH #### [facility] [address] [place] [address] Dr. Kayley Hatfield OCC BLD IMMUNO SCREENon 02-07 OCCULT BLOOD Negative Normal NEGATIVE [facility] Comment on above: Performed By: #### O BSCRN #### [facility] [address] [place] [address] Dr. Kayley Hatfield PROF 14(COMP METB)on 022 Albumin [Mass/Vol] 3.6 g/dL Normal 3.4-5.0 [facility] Comment on above: Performed By: #### H GBHCT #### [facility] [address] [address] [address] Kayley Hatfield Albumin/Globulin [Mass ratio] 1.2 {ratio} Normal [facility] Comment on above: Performed By: #### H GBHCT #### [facility] [address] [address] [address] Kayley Hatfield ALP [Catalytic activity/Vol] 71 U/L Normal 46-116 [facility] Comment on above: Performed By: #### H GBHCT #### [facility] [address] [address] [address] Kayley Hatfield ALT [Catalytic activity/Vol] 20 U/L Normal 14-59 [facility] Comment on above: Performed By: #### H GBHCT #### [facility] [address] [place] [address] Dr. Kayley Hatfield Anion gap [Moles/Vol] 9.8 mmol/L Normal [facility] Comment on above: Performed By: #### H GBHCT #### [facility] [address] [address] [address] Kayley Hatfield AST [Catalytic activity/Vol] 12 U/L Critically low 15-37 [facility] Comment on above: Performed By: #### H GBHCT #### [facility] [address] [address] [address] Kayley Hatfield Bilirubin [Mass/Vol] 0.4 mg/dL Normal 0.2-1.0 [facility] Comment on above: Performed By: #### H GBHCT #### [facility] [address] [address] [address] Kayley Hatfield Calcium [Mass/Vol] 9.0 mg/dL Normal 8.5-10.1 [facility] Comment on above: Performed By: #### H GBHCT #### [facility] [address] [address] [address] Kayley Hatfield Chloride [Moles/Vol] 99 mmol/L Normal 98-107 [facility] Comment on above: Performed By: #### H GBHCT #### [facility] [address] [address] [address] Kayley Hatfield CO2 [Moles/Vol] 31.5 mmol/L Normal 21.0-32.0 [facility] Comment on above: Performed By: #### H GBHCT #### [facility] [address] [address] [address] Kayley Hatfield Creatinine [Mass/Vol] 0.89 mg/dL Normal 0.55-1.02 [facility] Comment on above: Performed By: #### H GBHCT #### [facility] [address] [address] [address] Kayley Hatfield EGFR-AF MONEGASQUE >60 Normal >=60 [facility] Comment on above: Performed By: #### H GBHCT #### [facility] [address] [place] [address] Dr. Kayley Hatfield EGFR-NON AF MONEGASQUE >60 Normal >=60 [facility] Comment on above: Performed By: #### H GBHCT #### [facility] [address] [address] [address] Kayley Hatfield Globulin (S) [Mass/Vol] 3.1 g/dL Normal [facility] Comment on above: Performed By: #### H GBHCT #### [facility] [address] [address] [address] Kayley Hatfield Glucose [Mass/Vol] 174 mg/dL Critically high 74-106 [facility] Comment on above: Performed By: #### H GBHCT #### [facility] [address] [address] [address] Kayley Hatfield Potassium [Moles/Vol] 4.3 mmol/L Normal 3.5-5.1 [facility] Comment on above: Performed By: #### H GBHCT #### [facility] [address] [address] [address] Kayley Hatfield Protein [Mass/Vol] 6.7 g/dL Normal 6.4-8.2 [facility] Comment on above: Performed By: #### H GBHCT #### [facility] [address] [place], [place] [address] Dr. Kayley Hatfield Sodium [Moles/Vol] 136 mmol/L Normal 136-145 [facility] Comment on above: Performed By: #### H GBHCT #### [facility] [address] [place], [place] [address] Dr. Kayley Hatfield Urea nitrogen [Mass/Vol] 17.0 mg/dL Normal 7.0-18.0 [facility] Comment on above: Performed By: #### H GBHCT #### [facility] [address] [place], [place] [address] Dr. Kayley Hatfield Urea nitrogen/Creatinine [Mass ratio] 19.1 mg/mg Normal [facility] Comment on above: Performed By: #### H GBHCT #### [facility] [address] [address] [address] Kayley Hatfield TROPONIN, HIGH SENSITIVITYon 03-06-2022 HSTROP 7.0 pg/mL Normal 4.0-51.3 [facility] Comment on above: Result Comment: CUT- OFF POINTS HAVE BEEN ESTABLISHED BASED ON THE FOURTH UNIVERSAL DEFINITIONS OF MYOCARDIAL INFARCTION. THE UPPER REFERENCE LIMIT (URL) OF TROPONIN, DEFINED THE 99TH PERCENTILE OF cTnI DISTRIBUTION IN A REFERENCE POPULATION, HAS BEEN CONFIRMED THE DECISION THRESHOLD FOR TX DIAGNOSIS. Performed By: #### H GBHCT #### [facility] [address] [address] [address] Kayley Hatfield TYPE AND SCREENon 03-06-2022 TYPE AND SCREEN Negative Normal [facility] Comment on above: Performed By: #### C VDTBH #### [facility] [address] [id number] Kayley Hatfield XR CHEST 1 Von [...] by: MIGUE REYNOSO Date: 2022-03-06 14:39 Normal [facility] XR CHEST 1 V EXAMINATION: XR CHES [...] MIGUE REYNOSO Date: 2022-03-06 16:10 Normal [facility] XR DEXA BONE DENSITYon 12-22 XR DEXA [...] by: MIGUE REYNOSO Date: 2021-12-22 17:05 Normal [facility] CARDIAC ABDIAZIZ ADMITon 022 CK [Catalytic activity/Vol] 21 U/L Critically low 26-192 [facility] Comment on above: Performed By: #### B LDCX1 #### [facility] [address] [place] [address] Dr. Kayley Hatfield CK.MB [Mass/Vol] 1.00 ng/mL Normal <=3.60 [facility] Comment on above: Performed By: #### B LDCX1 #### [facility] [address] [place] [address] Dr. Kayley Hatfield HSTROP 11.6 pg/mL Normal 4.0-51.3 [facility] Comment on above: Result Comment: CUT- OFF POINTS HAVE BEEN ESTABLISHED BASED ON THE FOURTH UNIVERSAL DEFINITIONS OF MYOCARDIAL INFARCTION. THE UPPER REFERENCE LIMIT (URL) OF TROPONIN, DEFINED THE 99TH PERCENTILE OF cTnI DISTRIBUTION IN A REFERENCE POPULATION, HAS BEEN CONFIRMED THE DECISION THRESHOLD FOR TX DIAGNOSIS. Performed By: #### B LDCX1 #### [facility] [address] [place] [address] Dr. Kayley Hatfield ROD 48 ng/mL Normal 9-82 [facility] [facility] [place] Comment on above: Performed By: #### B [id number] #### [facility] [place] Laboratory [address] [place] [address] Dr. Kayley Hatfield CBC AUTO DIFFon 12-14-2021 BASO # 0.1 103/ul Normal 0.0-0.1 [facility] [place] Comment on above: Performed By: #### P RBC #### [facility] [place] Laboratory [address] [place] [address] Dr. Kayley Hatfield Basophils/100 WBC (Bld) 0.9 % Normal 0.2-2.0 [facility] [place] Comment on above: Performed By: #### P RBC #### [facility] [place] Laboratory [address] [place] [address] Dr. Kayley Hatfield EO # 0.1 103/ul Normal 0.0-0.7 The [facility] [place] Comment on above: Performed By: #### P RBC #### [facility] [place] Laboratory [address] [place] [address] Dr. Kayley Hatfield Eosinophils/100 WBC (Bld) 0.5 % Critically low 0.9-7.0 The [facility] [place] Comment on above: Performed By: #### P RBC #### [facility] [place] Laboratory [address] [address] [address] Kayley Hatfield Erythrocyte distribution width (RBC) [Ratio] 15.4 % Critically high 11.0-15.0 [facility] Comment on above: Performed By: #### P RBC #### [facility] [place] [facility] [address] [place] [address] Dr. Kayley Hatfield Hematocrit (Bld) [Volume fraction] 29.3 % Critically low 36.0-48.0 [facility] Comment on above: Performed By: #### P RBC #### [facility] [place] [facility] [address] [place] [address] Dr. Kayley Hatfield Hemoglobin (Bld) [Mass/Vol] 8.3 g/dL Critically low 12.0-16.0 [facility] Comment on above: Performed By: #### P RBC #### [facility] [place] [facility] [address] [place] [address] Dr. Kayley Hatfield IG # 0.05 10e3/ul Critically high 0.00-0.03 [facility] Comment on above: Performed By: #### P RBC #### [facility] [place] Laboratory [address] [place] [address] Dr. Kayley Hatfield IG % 0.4 % Normal 0.0-0.5 [facility] Comment on above: Performed By: #### P RBC #### [facility] [place] [facility] [address] [place] [address] Dr. Kayley Hatfield LYMPH # 1.2 103/ul Normal 1.2-3.8 The [facility] [place] Comment on above: Performed By: #### P RBC #### [facility] [place] [facility] [address] [place] [address] Dr. Kayley Hatfield Lymphocytes/100 WBC (Bld) 10.6 % Critically low 20.5-60.0 [facility] Comment on above: Performed By: #### P RBC #### [facility] [place] [facility] [address] [place] [address] Dr. Kayley Hatfield MANUAL DIFF REQ NO Normal [facility] Comment on above: Performed By: #### P RBC #### [facility] [place] Laboratory [address] [place] [address] Dr. Kayley Hatfield MCH (RBC) [Entitic mass] 21.4 pg Critically low 26.7-34.0 [facility] [place] Comment on above: Performed By: #### P RBC #### [facility] [place] [facility] [address] [address] [address] Kayley Hatfield MCHC (RBC) [Mass/Vol] 28.3 g/dL Critically low 29.9-35.2 [facility] [place] Comment on above: Performed By: #### P RBC #### [facility] [place] [facility] [address] [address] [address] Kayley Hatfield MCV (RBC) [Entitic vol] 75.5 fL Critically low 81.0-99.0 [facility] [place] Comment on above: Performed By: #### P RBC #### [facility] [place] Laboratory [address] [place] [address] Dr. Kyaley Hatfield MONO # 0.9 103/ul Critically high 0.3-0.8 [facility] Comment on above: Performed By: #### P RBC #### [facility] [place] [facility] [address] [place] [address] Dr. Kayley Hatfield Monocytes/100 WBC (Bld) 7.6 % Normal 1.7-12.0 [facility] [place] Comment on above: Performed By: #### P RBC #### [facility] [place] [facility] [address] [place] [address] Dr. Kayley Hatfield NEUT # 9.2 103/ul Critically high 1.4-6.5 [facility] Comment on above: Performed By: #### P RBC #### [facility] [place] [facility] [address] [address] [address] Kayley Hatfield Neutrophils/100 WBC (Bld) 80.0 % Critically high 43.0-75.0 [facility] [place] Comment on above: Performed By: #### P RBC #### [facility] [place] Laboratory [address] [place] [address] Dr. Kayley Hatfield Platelet mean volume (Bld) [Entitic vol] 9.3 fL Critically low 9.5-13.5 The [facility] [place] Comment on above: Performed By: #### P RBC #### [facility] [place] [facility] [address] [address] [address] Kayley Hatfield PLT 498 103/ul Critically high 150-450 [facility] Comment on above: Performed By: #### P RBC #### [facility] [place] [facility] [address] [place] [address] Dr. Kayley Hatfield RBC 3.88 106/ul Critically low 4.20-5.40 [facility] Comment on above: Performed By: #### P RBC #### [facility] [place] [facility] [address] [place] [address] Dr. Kayley Hatfield WBC 11.5 103/ul Critically high 4.0-11.0 [facility] Comment on above: Performed By: #### P RBC #### [facility] [place] [facility] [address] [place] [address] Dr. Kayley Hatfield ER URINE PROFILEon 2 Bilirubin Ql (U) Negative Normal NEGATIVE [facility] Comment on above: Performed By: #### H GBHCT #### [facility] [place] [facility] [address] [place] [address] Dr. Kayley Hatfield Clarity (U) CLEAR Normal CLEAR [facility] Comment on above: Performed By: #### H GBHCT #### [facility] [place] [facility] [address] [place] [address] Dr. Kayley Hatfield Color (U) LT. YELLOW Normal YELLOW [facility] Comment on above: Performed By: #### H GBHCT #### [facility] [place] [facility] [address] [place] [address] Dr. Kayley Hatfield ERUAHBetsey A micrscopic examination will be performed if indicated. Normal [facility] [place] Comment on above: Performed By: #### H GBHCT #### [facility] [place] [facility] [address] [place] [address] Dr. Kayley Hatfield Glucose Ql (U) Negative Normal NEGATIVE [facility] Comment on above: Performed By: #### H GBHCT #### [facility] [place] [facility] [address] [place] [address] Dr. Kayley Hatfield Hemoglobin Ql (U) TRACE-INTACT Abnormal NEGATIVE [facility] Comment on above: Performed By: #### H GBHCT #### [facility] [place] [facility] [address] [address] [address] Kayley Hatfield Ketones Ql (U) Negative Normal NEGATIVE [facility] Comment on above: Performed By: #### H GBHCT #### [facility] [place] [facility] [address] [address] [address] Kayley Hatfield LEUKOCYTES Negative Normal NEGATIVE [facility] Comment on above: Performed By: #### H GBHCT #### [facility] [place] [facility] [address] [place] [address] Dr. Kayley Hatfield Nitrite Ql (U) Negative Normal NEGATIVE [facility] Comment on above: Performed By: #### H GBHCT #### [facility] [place] [facility] [address] [place] [address] Dr. Kayley Hatfield pH (U) 6.5 [pH] Normal 5-9 [facility] Comment on above: Performed By: #### H GBHCT #### [facility] [place] [facility] [address] [address] [address] Kayley Hatfield SPEC GRAVITY 1.015 Normal 1.005-<=1.025 [facility] Comment on above: Performed By: #### H GBHCT #### [facility] [place] [facility] [address] [place] [address] Dr. Kayley Hatfield UA PROTEIN Negative Normal NEGATIVE/ TRACE [facility] [place] Comment on above: Performed By: #### H GBHCT #### [facility] [place] [facility] [address] [place] [address] Dr. Kayley Hatfield UR MICRO IND INDICATED Normal [facility] Comment on above: Performed By: #### H GBHCT #### [facility] [place] [facility] [address] [place] [address] Dr. Kayley Hatfield Urobilinogen Qn (U) 0.2 {Lu'U}/dL Normal 0.2 - 1. 0 [facility] Comment on above: Performed By: #### H GBHCT #### [facility] [place] [facility] [address] [place] [address] Dr. Kayley Hatfield PROF 14(COMP METB)on 022 Albumin [Mass/Vol] 3.2 g/dL Critically low 3.4-5.0 [facility] Comment on above: Performed By: #### B [id number] #### [facility] [place] [facility] [address] [place] [address] Dr. Kayley Hatfield Albumin/Globulin [Mass ratio] 0.8 {ratio} Normal [facility] Comment on above: Performed By: #### B [id number] #### [facility] [place] [facility] [address] [place] [address] Dr. Kayley Hatfield ALP [Catalytic activity/Vol] 72 U/L Normal 46-116 [facility] Comment on above: Performed By: #### B [id number] #### [facility] [place] [facility] [address] [place] [address] Dr. Kayley Hatfield ALT [Catalytic activity/Vol] 24 U/L Normal 14-59 [facility] Comment on above: Performed By: #### B [id number] #### [facility] [place] [facility] [address] [place] [address] Dr. Kayley Hatfield Anion gap [Moles/Vol] 13.0 mmol/L Normal [facility] Comment on above: Performed By: #### B [id number] #### [facility] [place] [facility] [address] [place] [address] Dr. Kayley Hatfield AST [Catalytic activity/Vol] 18 U/L Normal 15-37 [facility] Comment on above: Performed By: #### B [id number] #### [facility] [place] [facility] [address] [place] [address] Dr. Kayley Hatfield Bilirubin [Mass/Vol] 0.3 mg/dL Normal 0.2-1.0 [facility] Comment on above: Performed By: #### B [id number] #### [facility] [place] [facility] [address] [place] [address] Dr. Kayley Hatfield Calcium [Mass/Vol] 9.9 mg/dL Normal 8.5-10.1 [facility] Comment on above: Performed By: #### B [id number] #### [facility] [place] [facility] [address] [place] [address] Dr. Kayley Hatfield Chloride [Moles/Vol] 98 mmol/L Normal 98-107 [facility] Comment on above: Performed By: #### B [id number] #### [facility] [place] [facility] [address] [address] [address] Kayley Hatfield CO2 [Moles/Vol] 29.8 mmol/L Normal 21.0-32.0 [facility] Comment on above: Performed By: #### B [id number] #### [facility] [place] [facility] [address] [place] [address] Dr. Kayley Hatfield Creatinine [Mass/Vol] 1.23 mg/dL Critically high 0.55-1.02 [facility] Comment on above: Performed By: #### B [id number] #### [facility] [place] [facility] [address] [place] [address] Dr. Kayley Hatfield EGFR-AF MONEGASQUE 53 mL/min/1.73m2 Critically low >=60 [facility] Comment on above: Performed By: #### B [id number] #### [facility] [place] [facility] [address] [place] [address] Dr. Kayley Hatfield EGFR-NON AF MONEGASQUE 44 mL/min/1.73m2 Critically low >=60 [facility] Comment on above: Performed By: #### B [id number] #### [facility] [place] [facility] [address] [place] [address] Dr. Kayley Hatfield Globulin (S) [Mass/Vol] 3.9 g/dL Normal [facility] Comment on above: Performed By: #### B [id number] #### [facility] [place] [facility] [address] [address] [address] Kayley Hatfield Glucose [Mass/Vol] 160 mg/dL Critically high 74-106 [facility] Comment on above: Performed By: #### B [id number] #### [facility] [place] [facility] [address] [place] [address] Dr. Kayley Hatfield Potassium [Moles/Vol] 3.8 mmol/L Normal 3.5-5.1 [facility] Comment on above: Performed By: #### B [id number] #### [facility] [place] [facility] [address] [place] [address] Dr. Kayley Hatfield Protein [Mass/Vol] 7.1 g/dL Normal 6.4-8.2 [facility] Comment on above: Performed By: #### B [id number] #### [facility] [place] [facility] [address] [place] [address] Dr. Kayley Hatfield Sodium [Moles/Vol] 137 mmol/L Normal 136-145 [facility] Comment on above: Performed By: #### B [id number] #### [facility] [place] [facility] [address] [place] [address] Dr. Kayley Hatfield Urea nitrogen [Mass/Vol] 20.0 mg/dL Critically high 7.0-18.0 [facility] Comment on above: Performed By: #### B [id number] #### [facility] [place] [facility] [address] [place] [address] Dr. Kayley Hatfield Urea nitrogen/Creatinine [Mass ratio] 16.3 mg/mg Normal [facility] Comment on above: Performed By: #### B [id number] #### [facility] [place] [facility] [address] [place] [address] Dr. Kayley Hatfield TROPONIN, HIGH SENSITIVITYon 12-14-2021 HSTROP 11.3 pg/mL Normal 4.0-51.3 [facility] [place] Comment on above: Result Comment: CUT- OFF POINTS HAVE BEEN ESTABLISHED BASED ON THE FOURTH UNIVERSAL DEFINITIONS OF MYOCARDIAL INFARCTION. THE UPPER REFERENCE LIMIT (URL) OF TROPONIN, DEFINED THE 99TH PERCENTILE OF cTnI DISTRIBUTION IN A REFERENCE POPULATION, HAS BEEN CONFIRMED THE DECISION THRESHOLD FOR TX DIAGNOSIS. Performed By: #### P RTELEC #### [facility] [place] Laboratory [address] [place] [address] Dr. Kayley Hatfield URINE MICROSCOPIC ONLYon BACTERIA NONE SEEN Normal NONE SEEN The [facility] [place] Comment on above: Performed By: #### H GBHCT #### [facility] [place] Laboratory [address] [place] [address] Dr. Kayley Hatfield Bacteria identified Cx Nom (U) NOT INDICATED Normal [facility] [place] Comment on above: Performed By: #### H GBHCT #### [facility] [place] Laboratory [address] [place] [address] Dr. Kayley Hatfield CAST SEEN Abnormal NONE SEEN The [facility] [place] Comment on above: Performed By: #### H GBHCT #### [facility] [place] Laboratory [address] [place] [address] Dr. Kayley Hatfield Crystals LM Nom (Urine sed) NONE SEEN Normal NONE SEEN [facility] [place] Comment on above: Performed By: #### H GBHCT #### [facility] [place] Laboratory [address] [place] [address] Dr. Kayley Hatfield Epithelial cells LM Ql (Urine sed) FEW Abnormal NONE SEEN /RARE [facility] [place] Comment on above: Performed By: #### H GBHCT #### [facility] [place] Laboratory [address] [place] [address] Dr. Kayley Hatfield HYALINE CAST RARE Normal [facility] [place] Comment on above: Performed By: #### H GBHCT #### [facility] [place] Laboratory [address] [place] [address] Dr. Kayley Hatfield MUCOUS NONE SEEN Normal NONE SEEN [facility] [place] Comment on above: Performed By: #### H GBHCT #### [facility] [place] Laboratory [address] [place] [address] Dr. Kayley Hatfield RBC 0-2 Normal 0-2 [facility] [place] Comment on above: Performed By: #### H GBHCT #### [facility] [place] [facility] [address] [place] [address] Dr. Kayley Hatfield WBC 0-2 Abnormal NONE SEEN The [facility] [place] Comment on above: Performed By: #### H GBHCT #### [facility] [place] [facility] [address] [place] [address] Dr. Kayley Hatfield XR CHEST 1 Von [...] ASAEL MALDONADO Date: 2021-12-14 13:43 Normal [facility] [place] BUNon 12-12-2021 Urea nitrogen [Mass/Vol] 15.0 mg/dL Normal 7.0-18.0 [facility] Comment on above: Performed By: #### P RBC #### [facility] [place] Laboratory [address] [place] [address] Dr. Kayley Hatfield CALCIUMon 12-12-2021 Calcium [Mass/Vol] 9.1 mg/dL Normal 8.5-10.1 [facility] Comment on above: Performed By: #### C VDTBH #### [facility] [place] [facility] [address] [place] [address] Dr. Kayley Hatfield CREATININEon 12-12-2021 Creatinine [Mass/Vol] 1.05 mg/dL Critically high 0.55-1.02 [facility] Comment on above: Performed By: #### P RBC #### [facility] [place] [facility] [address] [place] [address] Dr. Kayley Hatfield EGFR-AF MONEGASQUE >60 Normal >=60 [facility] Comment on above: Performed By: #### P RBC #### [facility] [place] [facility] [address] [place] [address] Dr. Kayley Hatfield EGFR-NON AF MONEGASQUE 53 mL/min/1.73m2 Critically low >=60 [facility] Comment on above: Performed By: #### P RBC #### [facility] [place] [facility] [address] [place] [address] Dr. Kayley Hatfield CRPon 12-12-2021 CRP [Mass/Vol] mg/L Normal <=1.[address] [facility] Comment on above: Performed By: #### P RBC #### [facility] [place] [facility] [address] [place] [address] Dr. Kayley Hatfield MAGNESIUMon 12-12-2021 Magnesium [Mass/Vol] 1.9 mg/dL Normal 1.8-2.4 [facility] Comment on above: Performed By: #### C VDTBH #### [facility] [place] [facility] [address] [place] [address] Dr. Kayley Hatfield PHOSPHORUSon 12-12-2021 Phosphate [Mass/Vol] 4.1 mg/dL Normal 2.6-4.7 [facility] Comment on above: Performed By: #### C VDTBH #### [facility] [place] [facility] [address] [address] [address] Kayley Hatfield SED RATE [facility] 2021 SED RATE 35 mm/hr Critically high <=30 [facility] Comment on above: Performed By: #### P RTELEC #### [facility] [place] [facility] [address] [address] [address] Kayley Hatfield Social History Date Type Detail Facility Start: 06-14-2023 End: 06-26-2023 Tobacco smoking status NHIS Ex-smoker (finding) [facility] Start: 06-14-2023 Cigarettes smoked current (pack per day) - Reported 2 [facility] Start: 06-14-2023 Tobacco use and exposure Smokeless tobacco non-user [facility] Start: 06-14-2023 Alcohol intake Ex-drinker (finding) [facility] Start: 06-14-2023 Tobacco use panel [facility] Start: 06-14-2023 Alcohol Comment caffine-2 cups daily [facility] Start: 1955 Sex Assigned At Female F [facility] Start: 1955 Sex Assigned At Not on file [facility] End: 03-06-2022 History of tobacco use Current smoker [facility] End: 03-06-2022 History of tobacco use Cigarette Smoker [facility] Vital Signs Date Time Vital Sign Value Performing Clinician Faci lity 06-26-2023 15:27-0500 Diastolic blood pressure 103 mm[Hg] MD Erasto Burroughs Work Phone: [facility] 06-26-2023 15:27-0500 Heart rate 81 /min MD Erasto Burroughs Work Phone: [facility] 06-26-2023 15:27-0500 Respiratory rate 18 /min MD Erasto Burroughs Work Phone: [facility] 06-26-2023 15:27-0500 SaO2% (BldA) [Mass fraction] 95 % MD Erasto Burroughs Work Phone: [facility] 06-26-2023 15:27-0500 Systolic blood pressure 162 mm[Hg] MD Erasto Burroughs Work Phone: [facility] 06-26-2023 13:44-0500 Body height 162.56 cm MD Erasto Burroughs Work Phone: [facility] 06-26-2023 13:44-0500 Body weight 59.87 kg MD Erasto Burroughs Work Phone: [facility] 06-26-2023 13:44-0500 Inhaled oxygen flow rate 2 L/min MD Erasto Burroughs Work Phone: [facility] Clinical Notes 03-09-2022 to 06-27-2023 Note Date & Type Note Facility 06-27-2023 Note [facility] Subjective Lise Canales is a 68 y.o. year old female patient being seen for follow up [facility] for NSTEMI. Denies chest pain, LE edema, [...] pain Type 2 diabetes mellitus without complication (CMS/HCC) Family History Problem Relation Name Age of [...] Prior additional history: She was admitted to [facility] in 10/2017 with sudden onset symptoms of [...] smoking. On 06/04/2023 she was admitted to [facility] [facility] [place] due to pneumonia. In that setting she [...] Judgment normal. All (more content not included)... [facility] 06-26-2023 Procedure note [facility] 06-06-2023 Note Hospital Medicine Discharge Summary Final Discharge Diagnosis: Community acquired pneumonia of right lower lobe of lung Admission Diagnosis: NSTEMI (non-ST elevated myocardial infarction) ([facility]) [I21.4] Hospital course: 68 years old female lady with a medical history of hypertension, hyperlipidemia, gastroesophageal reflux disease, carotid disease, fibromyalgia, arthritis, polymyalgia rheumatica, COPD, temporal arteritis, and psoriasis. Came into the [facility] ER as a transfer from [facility] [place] for concern of chest pain and non-STEMI. [...] Center 06/27/2023 3:45 PM Jer Neff MD [facility] Your medication list START taking [...] HYDROcodone-acetaminophen 5-325 mg tablet Commonly known as: [place] melatonin 5 mg tablet metoprolol tartrate 25 [...] Your Medications These medications were sent to [id number] [place], [place] - [id number] [facility] [id number] cefdinir 300 mg capsule doxycycline 100 mg capsule Lise is allergic to azithromycin and latex. Disposition: Home-Health Care [facility] Discharge Condition: Stable Code Status: Prior Diagnostic [...] rhythm. Lungs: C (more content not included)... 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 Yes Does the patient have a casework specialist assigned to them through their insurance? Yes [...] link and activate MyChart? MyChart already active [facility] 06-05-2023 Note . Hospital Medicine History and Physical 06/05/2023 1:22 AM THE HOSPITALIST TEAM PREFERS TO USE [employer] CHAT FOR COMMUNICATION 7AM-7PM. IF I DO NOT RESPOND WITHIN 15 MINUTES, PLEASE PAGE ME/CALL THROUGH THE NANOFABRICATION SPECIALIST. FROM 7PM-7AM, PLEASE PAGE [phone](COVR) Chief Complaint No chief complaint on file. History of Present Illness Lise Canales is an 68 y.o. female who came from home with NSTEMi. This is a 68 years old female lady with a medical history of hypertension, hyperlipidemia, gastroesophageal reflux disease, carotid disease, fibromyalgia, arthritis, polymyalgia rheumatica, COPD, temporal arteritis, and psoriasis. Came into the [facility] ER as a transfer from [facility] for concern of chest pain and non-STEMI. [...] Date Noted NSTEMI (non-ST elevated myocardial infarction) ([facility]) 06/05/2023 Acute on chronic respiratory failure with hypoxia ([facility]) 04/01/2022 Anemia, unspecified 04/01/2022 Recurrent spontaneous pneumothorax 03/30/2022 Giant cell arteritis with polymyalgia rheumatica ([place]) 10/11/2021 Pneumothorax on left 08/02/2016 Coronary atherosclerosis 06/15/2014 Dyslipidemia 06/15/2014 Status post percutaneous transluminal coronary angioplasty 06/15/2014 Angina pectoris ([place]) 05/04/2014 Electrocardiogram abnormal 05/04/2014 Abdominal pain 04/24/2014 Altered mental status 04/24/2014 Benign essential hypertension 04/24/2014 Congestive heart failure ([place]) 04/24/2014 Dyspnea 04/24/2014 Gastroesophageal reflux disease 04/24/2014 History of psychiatric disorder 04/24/2014 Hyperlipidemia 04/24/2014 Headache 04/24/2014 Raynaud's disease 04/24/2014 Other and unspecified noninfectious gastroenteritis and colitis(558.9) 05/15/2007 Candidiasis of mouth 04/17/2007 COPD (chronic obstructive pulmonary disease) ([place]) 04/17/2007 Diarrhea 04/17/2007 Loss of weight 04/17/2007 Other psoriasis 04/17/2007 Psoriatic arthropathy ([place]) 04/17/2007 Other pneumothorax 03/30/2022 Assessment and Plan [...] over 92 -Scheduled (more content not included)... [facility] 08-14-2022 Note [facility] [facility] Subjective Lise Canales is a 67 y.o. year old female [...] Acute on chronic respiratory failure with hypoxia ([facility]/HCC) Anemia, unspecified Family History Problem Relation Name [...] underwent stenting of the LAD ISR using DNANY. She did well with that. She has been maintained on dual antiplatelet therapy with aspirin and Plavix. She has not had any recurrence of angina or need for intervention to the coronary arteries since then. She has advanced COPD and underwent right upper and lower lobe resection. She is followed by pulmonary. She has stopped smoking. Prior history: She was admitted to [facility] in 10/2017 with sudden onset symptoms of [...] 50 mcg by (more content not included)... [facility] 03-15-2022 Note MR#: [id number] I [facility] Pt. Name: Lizzt Lise Easton Admitted: 03/08/2022 Discharged: 03/15/2022 Date of : [...] a 66-year-old female, who presented to the [facility] with shortness of breath and fatigue, past [...] The patient was subsequently transferred to for [facility] for further workup, was admitted to step-down [...] Penn MD Date Trans: 03/15/2022 04:48 P/mmo [id number] cc: Erasto Burroughs M.D. [address] [facility] [address] [facility] 03-13-2022 Note MR#: [id number] I [facility] Pt. Name: Lise Canales Admitted: 03/08/2022 Discharged: [...] Pineda MD Date Trans: 03/13/2022 10:30 A/gabriela [id number] cc: Erasto Burroughs M.D. [address] [facility] [address] [facility] 03-09-2022 Note MR#: [id number] I [facility] Pt. Name: LizztLise Admitted: 03/05/2020 Discharged: 03/09/2020 Date of : [...] gastritis, Helicobacter pylori infection, who presented to [facility] Emergency Department complaining of sudden onset of [...] [facility] that she was drug seeking and [...] appointment with the primary care provider through [facility] for close followup for her anxiety and [...] 2 to 4 weeks. Follow up at [facility] on 03/16/2022 at 9:50 a.m. [...] documentation from me. Date Dict: 03/08/2022/03:04 P/Paulette Mccord, [employer] Date Trans: 03/09/2022 11:21 A/gabriela [id number] cc: Marti Poole M.D. [address] [facility] [address] [facility] [id number] Erasto Burroughs M.D. [address] [facility]. [facility] [address] [facility] Evaluation note No assessment inform ation available [facility] Work Phone: Evaluation note Diagnosis DDD (degenerative disc disease), lumbar- Primary Degeneration of lumbar or lumbosacral intervertebral disc documented in this encounter [facility] Author Remy Givens [facility] June 26, 2023 2:44pm Note Date/Time June 26, 2023 2:44pm [facility] [address] [place] [address] Gastroenterology H&P Signed Patient: Lise Canales MR#: [id number] : 1955 Acct:[id number] Age/Sex: 68 / F Adm Date: 3 Loc: Room: Type: [facility] Attending Dr: Remy Givens MD [...] MD Documented By: Remy Givens MD 06/26/23 1443 Signed By: <Electronically signed by Remy Givens MD> 06/26/23 6546 [facility] Work Phone: Hospital Discharge instructions Additional Instructions [...] NOT operate machinery such as power tools, lawn mowers, snow blowers, sewing machines, etc. for [...] problems. -Follow up with PCP. -Office number [phone].[facility] Work Phone: Summary Purpose Family History No [...] and content) DATE CREATED AUTHOR 04/11/2022 [facility] DATE CREATED AUTHOR AUTHOR'S ORGANIZ ATION 11/04/2022 [facility] DATE CREATED AUTHOR AUTHOR'S ORGANIZ ATION 06/17/2023 [facility] EPIC DATE CREATED AUTHOR AUTHOR'S ORGANIZ ATION 07/01/2023 [facility] DATE CREATED AUTHOR AUTHOR'S ORGANIZ ATION 07/10/2023 [facility] DATE CREATED AUTHOR AUTHOR'S ORGANIZ ATION 11/13/2023 Geovanny Slade [facility] Care Teams (unrecognized sec tion and content) Team Status: Active Member Role Status Dates Erasto Burroughs MD Primary Care Provider Active Team Status: Inactive Member Role Status Dates Erasto Burroughs MD Primary Care Provider Active Remy Givens MD Attending Provider Active Feltmaker Relationship Specialty Start Date End Date Erasto Burroughs MD PCP - General Family Medicine 07/09/22 Reason for Visit (unrecogniz ed section and content) Reason Comments Med Refill FOR RECORDS PERTAINING TO PATIENTS WHO ARE [...] BE BASED ON THE PRIMARY CLINICAL RECORDS. [employer] provides no warranty or guarantee of the accuracy or completeness of information in this document.
--- NOTE | 2023-12-18 20:17 | RESP.RT ---
PEP not done at this time due to pt feeling SOB from getting up to the commode.
[2023-12-18 20:38] LABS: Glucometer 211 mg/dL (74-106)
[2023-12-18] MEDS: GUAIFENESIN 600 MG TAB.ER.12H 1200 MG PO (20:49)
[2023-12-18] MEDS: CEFTRIAXONE 1,000 MG in 0.9 % SODIUM CHLORIDE 50 ML 100 MG IV (20:49)
[2023-12-18] MEDS: PREGABALIN 100 MG CAPSULE PO (20:49)
[2023-12-18] MEDS: METOPROLOL TARTRATE 25 MG TABLET 12.5 MG PO (20:49)
[2023-12-18] MEDS: ENOXAPARIN SODIUM 40 MG/0.4 ML SYRINGE SUBQ (20:49)
[2023-12-18] MEDS: OMEPRAZOLE 40 MG CAPSULE.DR PO (20:49)
[2023-12-18] MEDS: LACTATED RINGER'S SOLUTION 1,000 ML 125 ML IV (20:50)
[2023-12-18 21:16] LABS: Bilirubin Urine NEGATIVE (NEGATIVE); Blood Urine MODERATE (NEGATIVE); Clarity Urine CLEAR (CLEAR); Color Urine YELLOW (YELLOW); Glucose Urine UA 250 mg/dL (NEGATIVE); Ketones Urine NEGATIVE (NEGATIVE); Leukocyte Esterase Urine SMALL (NEGATIVE); Nitrite Urine NEGATIVE (NEGATIVE); Protein Urine 100 mg/dL (NEG/TRACE); Specific Gravity Urine 1.025 (1.005-1.025); Urobilinogen Urine 0.2 EU/dL (0.2-1.0)
[2023-12-18 21:22] LABS: Bacteria Urine MODERATE #/HPF (NONE SEEN); WBC Urine 20-50 #/HPF (NONE SEEN)
[2023-12-18 21:23] LABS: Amorphous Sediment Urine MANY; Cast Seen? NONE SEEN #/LPF (NONE SEEN); Crystals Seen? Seen #/HPF (None Seen); Mucus Urine NONE SEEN (NONE SEEN); Squamous Epithelial Cell Urine FEW #/LPF (NONE/RARE); Urine Culture Indicated YES
[2023-12-18] MEDS: ZOLPIDEM TARTRATE 5 MG TABLET PO (21:36)
[2023-12-18] MEDS: ATORVASTATIN CALCIUM 40 MG TABLET PO (21:36)
[2023-12-18] MEDS: INSULIN ASPART 300 UNIT/3 ML PEN SUBQ (21:36)
[2023-12-18] MEDS: LACTATED RINGER'S SOLUTION 1,000 ML 1000 ML IV (22:19)
[2023-12-18] MEDS: LEVALBUTEROL HCL 1.25 MG/3 ML VIAL NEB IH (23:19)
[2023-12-19] VITALS (26 sets, daily range): BP systolic 99–154; BP diastolic 56–75; PULSE 87–126; TEMP 36.3–36.7; O2SAT 92–96
[2023-12-19 03:21] LABS: Alanine Aminotransferase 10 U/L (14-59); Albumin Globulin Ratio 0.5; Alkaline Phosphatase 77 U/L (46-116); Anion Gap 13.3; Aspartate Amino Transferase 14 U/L (15-37); BUN Creatinine Ratio 13.1; Bilirubin Total 0.5 mg/dL (0.2-1.0); Calcium 8.4 mg/dL (8.5-10.1); Carbon Dioxide 24.7 mmol/L (21.0-32.0); Chloride 100 mmol/L (98-107); Estimated GFR (African America 35 (>=60); Estimated GFR (Non-African Ame 29 (>=60); Globulin 3.7 g/dL; Glucose 103 mg/dL (74-106); Sodium 134 mmol/L (136-145); Total Protein 5.7 g/dL (6.4-8.2)
[2023-12-19 03:29] LABS: Basophils Absolute Auto 0.1 10^3/uL (0.0-0.1); Basophils Percent Auto 0.7 % (0.2-2.0); Eosinophils Percent Auto 0.1 % (0.9-7.0); Hematocrit 35.3 % (36.0-48.0); Hemoglobin 11.5 g/dL (12.0-16.0); Immature Granulocytes Abs Auto 0.32 10^3/uL (0.00-0.03); Lymphocytes Absolute Auto 0.5 10^3/uL (1.2-3.8); Lymphocytes Percent Auto 4.5 % (20.5-60.0); Mean Corpuscular HGB Conc 32.6 g/dL (29.9-35.2); Mean Corpuscular Hemoglobin 30.6 pg (26.7-34.0); Mean Corpuscular Volume 93.9 fL (81.0-99.0); Mean Platelet Volume 9.9 fL (9.5-13.5); Monocytes Absolute Auto 0.5 10^3/uL (0.3-0.8); Monocytes Percent Auto 4.8 % (1.7-12.0); Neutrophils Absolute Auto 9.2 10^3/uL (1.4-6.5); Neutrophils Percent Auto 86.9 % (43.0-75.0); Platelet Count 279 10^3/uL (150-450); Red Blood Count 3.76 10^6/uL (4.20-5.40); Red Cell Distribution Width 13.7 % (11.0-15.0); White Blood Count 10.5 10^3/uL (4.0-11.0)
[2023-12-19 03:41] LABS: Lactate/Lactic Acid 3.2 mmol/L (0.4-2.0)
[2023-12-19] MEDS: LEVALBUTEROL HCL 1.25 MG/3 ML VIAL NEB IH ×5 (03:54→22:08)
[2023-12-19] MEDS: ACETAMINOPHEN 500 MG TABLET 1000 MG PO ×2 (04:49→22:16)
--- NOTE | 2023-12-19 05:00 | XR_ITS ---
The [address] [address] Patient Name: SANDRA Easton COVERT MRN: [id number] date: 1955 Sex: F Assigned Patient Location: [place] Current Patient Location: Accession/Order Number: [id number] Exam Date: 12/19/2023 05:06 Report Date: 12/19/2023 07:12 At the request of: ESME BURROUGHS Procedure: XR chest 1V EXAM: XR chest 1V HISTORY: Pneumonia COMPARISON: 12/14/2023 TECHNIQUE: AP portable FINDINGS: LUNGS: Biapical suture lines. Moderate right basilar infiltrate. The left lung is clear. VASCULATURE: No increased pulmonary vasculature. PLEURA: No pneumothorax, effusion, or pleural thickening. CARDIAC: No cardiomegaly or cardiac silhouette abnormality. MEDIASTINUM: No visible mass or adenopathy. BONES: No fracture or visible bone lesion. OTHER: Negative. XR/XR chest 1V IMPRESSION: Slight interval progression of right basilar infiltrate/pneumonia Electronically authenticated by: ASAEL MALDONADO Date: 12/19/2023 07:12
[2023-12-19] MEDS: LACTATED RINGER'S SOLUTION 1,000 ML 125 ML IV ×2 (08:10→19:21)
--- NOTE | 2023-12-19 08:36 | CT_ITS ---
The [address] [address] Patient Name: SANDRA Easton COVERT MRN: [facility]:[id number] date: 1955 Sex: F Assigned Patient Location: Current Patient Location: Accession/Order Number: [id number] Exam Date: 12/19/2023 09:10 Report Date: 12/19/2023 10:27 At the request of: GALINDO SMITH Procedure: CT chest wo con EXAM: CT chest wo con; [id number] REASON FOR EXAM: hypoxia TECHNIQUE: Helical CT images of the chest were obtained without contrast. Multiplanar reformats and maximum intensity projection images were generated at the scanner. Dose reduction technique used: Automated exposure control and/or adjustment of the mA and/or kV according to patient size and/or use of iterative reconstruction technique. COMPARISON: Same day chest x-ray and chest CT 02/11/2023. CT lumbar spine 05/08/2023. FINDINGS: Note: Compared with contrasted CT exams, noncontrast images are less sensitive for the detection of various types of soft tissue, solid organ, and vascular pathologies. Chest: Support devices: None. Visualized Thyroid: No nodules. Chest wall: Within normal limits. Gerri/mediastinum/esophagus: No mass. Thoracic lymph nodes: Mild mediastinal adenopathy is new compared with 2022. For example anterior carinal lymph node measuring 13 x 10 mm (series 3 image 40), previously 9 x 5 mm. Heart and vasculature: -No pericardial effusion or aortic aneurysm. -Coronary artery stent is present. Visualized portions of the upper abdomen: Within normal limits. Musculoskeletal: Moderate compression fracture of T12 with retropulsion measuring 6 mm, similar compared with 05/08/2023. No acute fracture. Lungs/airways: -Moderate bilateral dependent predominant consolidation groundglass opacification, right greater than left; mostly new compared with 02/11/2023. -Moderate centrilobular emphysema. -Status post biapical partial lung resection. -No significant nodule or infiltrate. -The central airways are patent. Pleura: Trace bilateral pleural effusions. Dense pleural thickening of the right dependent base, similar. No pneumothorax. CT/CT chest wo con IMPRESSION: 1. Moderate bilateral pneumonia and/or aspiration. 2. Trace bilateral pleural effusions. 3. New mild mediastinal adenopathy, likely reactive. Electronically authenticated by: ROJELIO SHAY Date: 12/19/2023 10:27
[2023-12-19] MEDS: METHYLPREDNISOLONE SOD SUCC PF 125 MG/2 ML VIAL IVP (09:01)
[2023-12-19] MEDS: DULOXETINE HCL 30 MG CAPSULE.DR 90 MG PO (09:02)
[2023-12-19] MEDS: CHOLECALCIFEROL (VITAMIN D3) 25 MCG/1,000 UNITS TABLET 50 MCG PO (09:02)
[2023-12-19] MEDS: METOPROLOL TARTRATE 25 MG TABLET 12.5 MG PO ×2 (09:02→22:16)
[2023-12-19] MEDS: OMEPRAZOLE 40 MG CAPSULE.DR PO ×2 (09:02→22:16)
[2023-12-19] MEDS: PREGABALIN 100 MG CAPSULE PO ×2 (09:02→22:16)
[2023-12-19] MEDS: AMLODIPINE BESYLATE 5 MG TABLET PO (09:03)
[2023-12-19] MEDS: ASPIRIN 81 MG TABLET.DR PO (09:04)
[2023-12-19] MEDS: GUAIFENESIN 600 MG TAB.ER.12H 1200 MG PO ×2 (09:04→22:16)
[2023-12-19] MEDS: LACTATED RINGER'S SOLUTION 1,000 ML 1000 ML IV ×2 (09:06→10:21)
[2023-12-19 10:31] LABS: PROCALCITONIN 22.36 ng/mL (0.00-0.50)
--- NOTE | 2023-12-19 11:28 | P.HP_ITS ---
<Statement entered by Erasto Henry MD - 12/19/23 18:29> Patient seen and examined, agree with assessment and plan below. Presented wtih SOB and cough. Temp at home and chest tightness. Found pneumonia and worsening hypoxia. Severe sepsis. On antibiotics, steroids, and breathing treatments. BP improved with fluids. Diagnosis: 1.Severe sepsis 2. Pneumonia 3. Acute on chronic hypoxic respiratory failure 4. EUGENIE 5. UTI 6. COPD exacerbation 7. DM2 8. HTN 9. CAD HPI H&P: HPI History of Present Illness Chief complaint: WEAKNESS, SOB, Pneumonia, Sepsis Narrative: 12/19/23 1005 This is a 68-year-old female patient with a past medical history as outlined below including COPD with chronic respiratory failure on home O2 of 2 L at night only, depression, DM type II, CAD, and GERD; who presented to the ED yesterday (Sunday) complaining of worsening shortness of breath and hypoxia. She reports onset of increased shortness of breath and coughing on Sunday with O2 sats during the day down to 85% on room air. The patient started using her O2 sup plementation during the day at 2 L due to her hypoxia. Sunday night she recorded a temperature of 103. On Sunday family member spoke with her and noticed she was short of breath and brought her to the ED for further evaluation. Workup in the ED revealed hypoxia (85% on 2 L O2), tachycardia (130 bpm), and tachypnea (32-40 RPM). Labs revealed leukocytosis (14,000), EUGENIE (BUN 20, CR 1.54, GFR 32), lactic acidosis (4.5, 6.0), elevated procalcitonin (7.15), and mildly elevated BNP (1519). A UA was positive for UTI and a chest x-ray revealed right lower lobe patchy and consolidation of infiltrates. She was admitted last night to the hospitalist service as an inpatient for sepsis, pneumonia, UTI, acute on chronic respiratory failure. At the time of my exam the patient is sitting up in bed visiting with her daughter. She reports feeling a little better today than on arrival to the ER. She exhibits intermittent pursed lip breathing and is able to complete 5-7 word sentences but still is mildly dyspneic at rest. We have consulted Dr. Mora who follows this patient in his clinic and we appreciate his assistance with this patient's care. We have added on a CT Chest to further evaluate for infiltrate vs effusion vs other etiologies of hypoxia. As the patient's blood pressure is soft and her lactic acid remains elevated this morning (3.2), we will give an additional 1 L bolus of IV fluid. We will monitor closely for volume overload in setting of elevated BNP, but the patient does not have a history of CHF and her chest x-ray and clinical exam are not concerning for hypervolemia at this time. Opioid HPI Opioid Management Most Recent Opioid Data: Last Pain Scale 2 12/19/23 06:11 Last Pain Intensity 0 03/06/23 15:53 Last Pain Assessment 12/19/23 13:12 Last MAR Pain Assessment 12/19/23 06:11 Last ORT Total Score 0 12/18/23 18:39 Last ORT Risk Category Low Risk 12/18/23 18:39 Review of Systems ROS Status of ROS 10 or more systems reviewed and unremark able except as noted in history and below [facility] Medical History (Updated 12/19/23 @ 12:44 by Fish Mora DO) CAD (coronary artery disease) ?I25.10 - Atherosclerotic heart disease of [place] coronary artery without angina pectoris (ICD-10) Essential hypertension ?I10 - Essential (primary) hypertension (ICD-10) Type 2 diabetes mellitus with hyperglycemia ?E11.65 - Type 2 diabetes mellitus with hyperglycemia (ICD-10) Non-ST elevated myocardial infarction (non-STEMI) ?I21.4 - Non-ST elevation (NSTEMI) myocardial infarction (ICD-10) Hyperlipidemia ?E78.5 - Hyperlipidemia, unspecified (ICD-10) Hyperglycemia, drug-induced ?R73.9 - Hyperglycemia, unspecified (ICD-10) ?T50.905A - Adverse effect of unspecified drugs, medicaments and biological substances, initial encounter (ICD-10) COPD (chronic obstructive pulmonary disease) ?J44.9 - Chronic obstructive pulmonary disease, unspecified (ICD-10) Depression ?F32.A - Depression, unspecified (ICD-10) Acid reflux ?K21.9 - Gastro-esophageal reflux disease without esophagitis (ICD-10) Nerve pain ?M79.2 - Neuralgia and neuritis, unspecified (ICD-10) Back pain ?M54.9 - Dorsalgia, unspecified (ICD-10) Thoracotomy scar of right chest ?L90.5 - Scar conditions and fibrosis of skin (ICD-10) Sepsis ?A41.9 - Sepsis, unspecified organism (ICD-10) History of oxygen administration ?Z99.81 - Dependence on supplemental oxygen (ICD-10) UTI (urinary tract infection), bacterial ?N39.0 - Urinary tract infection, site not specified (ICD-10) ?A49.9 - Bacterial infection, unspecified (ICD-10) Urethral stenosis 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 [part of] (ICD-10) Stented coronary artery ?Z95.5 - Presence of coronary angioplasty implant and graft (ICD-10) Family History Mother Family history of COPD (chronic obstructive pulmonary disease) Brother Family history of COPD (chronic obstructive pulmonary disease) Father Family history of COPD (chronic obstructive pulmonary disease) Family history of stroke Social History Within the past year, how often did you have a drink containing alcohol: never Within the past year, how many standard drinks containing alcohol did you have on a typical day: 1 or 2 Within the past year, how often did you have six or more drinks on one occasion: never Total score: 0 Score interpretation: A score less than 3 is consistent with normal alcohol consumption. Smoking status: Former smoker Non-prescribed substance use: denies use Previous occupational history: disabled Highest level of school completed/degree received: Associate degree: occupational, technical, vocational program Are you now , , , , never or living with a partner: Little interest or pleasure in doing things: not at all Feeling down, depressed, or hopeless: not at all Feel stressed/tense/nervous/anxious/difficulty sleeping: only a little Do you think of yourself as: straight/heterosexual Gender Identity: female Meds Home Medications and Allergies Home Medications ?Medication ?Instructions ?Recorded ?Confirmed ?Type aspirin 81 mg tablet,delayed 81 mg PO DAILY 03/06/23 12/18/23 History release atorvastatin 40 mg tablet 40 mg PO .QHS 03/06/23 12/18/23 History cholecalciferol (vitamin D3) 50 50 mcg PO DAILY 03/06/23 12/18/23 History mcg (2,000 unit) tablet (Vitamin D3) duloxetine 30 mg capsule,delayed 90 mg PO DAILY 03/06/23 12/18/23 History release eszopiclone 3 mg tablet (Lunesta) 3 mg PO .QHS 03/06/23 12/18/23 History glipizide 5 mg tablet 5 mg PO DAILY 03/06/23 12/18/23 History melatonin 5 mg tablet 5 mg PO .QHS 03/06/23 12/18/23 History metoprolol tartrate 25 mg tablet 12.5 mg PO BID 03/06/23 12/18/23 History mirabegron 50 mg tablet,extended 50 mg PO DAILY 03/06/23 12/18/23 History release 24 hr (Myrbetriq) omeprazole 40 mg capsule,delayed 40 mg PO BID 03/06/23 12/18/23 History release pregabalin 100 mg capsule (Lyrica) 100 mg PO Q12H 03/06/23 12/18/23 History albuterol sulfate 90 mcg/actuation 2 puff inhalation Q4H PRN 12/18/23 12/18/23 History aerosol inhaler shortness of breath or wheezing amlodipine 5 mg tablet 5 mg PO DAILY 12/18/23 12/18/23 History guaifenesin 600 mg tablet, 1,200 mg PO BID 12/18/23 12/18/23 History extended release 12 hr prednisone 5 mg tablet 10 mg PO DAILY 12/18/23 12/18/23 History Allergies Allergy/AdvReac Type Severity Reaction Status Date / Time azithromycin Allergy Severe Verified 12/18/23 14:47 [From Zithromax Z-Leonardo] Latex, Natural Rubber Allergy Severe Verified 12/18/23 14:47 Exam Constitutional Vital Signs, click to edit/add: Last Vital Signs Temp 97.5 F L 12/19/23 09:10 Pulse 91 H 12/19/23 09:53 Resp 18 12/19/23 09:10 BP 114/63 12/19/23 09:10 Pulse Ox 96 12/19/23 09:10 O2 Del Method Nasal Cannula 12/19/23 09:10 O2 Flow Rate 3 12/19/23 09:10 Common normals: no apparent distress, oriented x3, alert and well nourished General appearance: cooperative Orientation/consciousness: Yes awake HENMT Common normals: normocephalic, head/scalp atraumatic, hearing grossly normal bilaterally, external nose normal and moist oral mucous membranes Eye Common normals: PERRL, EOMs intact bilaterally, conjunctivae normal and no scleral icterus Alignment: alignment normal Eyelid: eyelids normal Neck & C-Spine Common normals: full ROM, supple and no JVD Chest Common normals: inspection of chest normal Chest: symmetrical chest wall rise Respiratory Common normals: no retractions Effort & inspection: pursed lip breathing, uses accessory muscles (Mild) and other (Completes 5-7 word sentences) Auscultation: wheezes (Faint, EE BLL) and diminished lung sounds diffuse (Greatest at BLL) Cardio Common normals: no JVD, regular rate, regular rhythm, S1 normal heart sound, S2 normal heart sound, no gallops, no clicks, no murmurs, no rub and peripheral pulses 2+ throughout GI Common normals: Normal to inspection, nondistended, normoactive bowel sounds present, soft to palpation, non-tender, no hepatosplenomegaly, no masses and no bruits Bladder/kidney exam: bladder normal to palpation Back & Pelvis Common normals: thoracic and lumbar spine normal to inspection Extremity Common normals: normal capillary refill and no pedal edema General: normal exam except as noted; no clubbing and no cyanosis Neuro Lyudmila Coma Scale: GCS not evaluated Common normals: CN's II-XII intact bilaterally, moves all extremities, no focal motor deficits and no sensory deficits noted Speech: speech normal Motor exam: strength 5/5 throughout Psych Common normals: mental status grossly normal, thought process normal, affect normal and activity/motor behavior normal Results Labs Labs: Short CBC 12/18/23 12/19/23 Range/Units 14:57 02:59 WBC 14.0 H 10.5 (4.0-11.0) 10^3/uL Hgb 13.8 11.5 L (12.0-16.0) g/dL Hct 42.2 35.3 L (36.0-48.0) % Plt Count 381 279 (150-450) 10^3/uL BMP 12/18/23 12/19/23 14:57 02:59 Sodium 135 L 134 L Potassium 3.4 L 4.0 Chloride 97 L 100 Carbon Dioxide 26.8 24.7 BUN 20.0 H 23.0 H Creatinine 1.59 H 1.75 H Glucose 261 H 103 Calcium 9.0 8.4 L Liver Function 12/18/23 12/19/23 Range/Units 14:57 02:59 Total Bilirubin 0.8 0.5 (0.2-1.0) mg/dL AST 13 L 14 L (15-37) U/L ALT 15 10 L (14-59) U/L Alkaline Phosphatase 106 77 (46-116) U/L Albumin 2.7 L 2.0 L (3.4-5.0) g/dL Urine 12/18/23 Range/Units 21:00 Urine Color Yellow (YELLOW) Urine Clarity Clear (CLEAR) Urine pH 6.0 (5.0-9.0) Ur Specific [place] 1.025 (1.005-1.025) Urine Protein 100 A (NEG/TRACE) mg/dL Urine Glucose (UA) 250 A (NEGATIVE) mg/dL Pulse Oximetry Attestation: I have reviewed the pertinent pulse oximetry results. Imaging Chest x-ray: Attestation: I have reviewed the pertinent imaging results. Radiologist's impression: CXR #1 12/18/23 IMPRESSION: Mild COPD. Patchy and somewhat consolidated infiltrate in the right lower lung field progressed since prior exam. There may be minimal infiltrative changes in the right mid/upper lung field and left lower lung field. CXR #2 12/19/23 IMPRESSION: Slight interval progression of right basilar infiltrate/pneumonia Assessment and Plan Assessment and Plan (1) Severe sepsis: Assessment and Plan: Acute * Adm inpatient * We expect greater than a 2 midnight stay for medically necessary hospital care including large volume IVF administration, close monitoring of VS and sepsis signs, IVPB antibiotics, respiratory care with frequent neb treatments and increased O2 administration, specialty pulmonology care * AEB: * SEP1 Criteria (Severe Sepsis) - SIRS (WBC 14,000, P 130, R 32-40, Temp 103), Lactic acidosis (4.5, 6.0), Source - RLL Pneumonia, UTI * SEP3 Criteria (Sepsis w/o septic shock) - SOFA score of 3 (PF ratio 178=2, Cr 1.59=1), Elevated Procalcitonin (7.15), Source - RLL Pneumonia, UTI * IVFs * Minimal (500 ml) bolus given in ED d/t concern for CHF w/ elevated BNP * 1 Liter bolus given after admission d/t soft BPs w/ appropriate BP recovery * Give additional 1 liter bolus now as BP is beginning to soften again * LR at 125/hr for maintenance * Blood cultures x 2 obtained in ED - pending * Sputum culture obtained after admission - pending * Repeat lactic acid and procalcitonin today - add on to AM labs * See pneumonia for ABX * Pt mildly lethargic, but w/ normal mentation and no evidence of mottling or poor peripheral perfusion on admission exam * VS q4h x 24 hrs, then resume q8h per protocol * CBC, CMP daily, Procalcitonin daily (until normal) (2) Community acquired pneumonia: Assessment and Plan: Acute * RLL infiltrate noted on CXR * IVPB Rocephin and Levaquin for double gram neg coverage (suspected gram neg PNA) * Low threshold to broaden coverage further pending clinical course * Guaifenesin BID w/ OPEP for sputum mobilization * C/S Pulmonology - we appreciate Dr Mora's assistance with this pt's care * CBC, CMP daily Qualifiers: Laterality: right Lung location: unspecified part of lung Qualified Code(s): J18.9 - Pneumonia, unspecified organism (3) Urinary tract infection: Assessment and Plan: Acute * UA positive in ED - C&S pending * IVPB Rocephin/Levaquin as above adequate UTI coverage as well * Hold myrbetriq for now to avoid urinary retention (4) Acute exacerbation of chronic obstructive pulmonary disease (COPD): Assessment and Plan: Acute * Solumedrol 125 mg IVP x 1, then 40 mg q6h * Xopenex/Atrovent q6h scheduled (Xopenex to avoid cardiac stimulation) * See Pneumonia/Ac on Chr resp failure (5) Acute and chronic respiratory failure ([id number]): Assessment and Plan: Acute * 2/2 Acute pneumonia and COPD exacerbation * O2 supplementation to keep sats above 90% * Baseline O2 at 2L at nighttime only * Currently requiring 3L 24/7 to maintain O2 sats above 90% * CT Chest to further assess for infiltrate vs effusion vs mucous plugging vs other etiology of hypoxia (6) EUGENIE (acute kidney injury): Assessment and Plan: Acute * 2/2 severe sepsis * IVF at 125/hr * Hold renal toxic meds (i.e. Glipizide) * Consider Nephrology consult pending clinical course * CMP daily (7) CAD (coronary artery disease): Assessment and Plan: Chronic * Continue home ASA, BB, statin (8) Type 2 diabetes mellitus with hyperglycemia: Assessment and Plan: Chronic * Hold home glipizide * ACHS glucometer checks * CC diet * Med SSI for glucose correction, may require higher correction scale while on corticosteroids (9) Essential hypertension: Assessment and Plan: Chronic * Hold home amlodipine for now d/t soft BPs w/ sepsis * Continue home low dose metoprolol, hold for SBP < 110 (10) Depression: Assessment and Plan: Chronic * Continue home Duloxetine (11) Acid reflux: Assessment and Plan: Chronic * Continue home PPI
[2023-12-19] MEDS: IPRATROPIUM BROMIDE 0.5 MG/2.5 ML VIAL.NEB IH ×3 (11:41→22:08)
[2023-12-19 11:50] LABS: Glucometer 135 mg/dL (74-106)
--- NOTE | 2023-12-19 11:53 | CM.NOTE ---
Rounds made with Dr. Henry. Dr. Henry reviews labs and Consult ordered for [employer]. Ms. Covert verbalizes understanding. No discharge today.
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
[2023-12-19 12:57] LABS: Lactate/Lactic Acid 3.5 mmol/L (0.4-2.0)
[2023-12-19] MEDS: PIPERACILLIN SODIUM/TAZOBACTAM 3.375 GM in 0.9 % SODIUM CHLORIDE 50 ML IV ×2 (14:34→22:15)
[2023-12-19] MEDS: METHYLPREDNISOLONE SOD SUCC PF 40 MG/ML VIAL IVP ×2 (14:34→22:14)
--- NOTE | 2023-12-19 15:22 | SWNOTE1 ---
SW met with pt to discuss dc needs. Pt lives at home with her . Pt has a walker and cane at home. She uses them as needed. SW did let pt know that home health is being recommended. Pt asked for what? SW advised for her safety at home and for strengthening. Pt voiced she is sick and does not feel well and that is why she is shaky when she walks. Pt again voiced she does not want it. At this time pt is refusing home health. She stated once she starts feeling better she will be able to get around better.
[2023-12-19 16:11] LABS: Glucometer 246 mg/dL (74-106)
[2023-12-19] MEDS: INSULIN ASPART 300 UNIT/3 ML PEN SUBQ ×2 (17:13→22:15)
[2023-12-19 20:17] LABS: Glucometer 389 mg/dL (74-106)
[2023-12-19] MEDS: ENOXAPARIN SODIUM 40 MG/0.4 ML SYRINGE SUBQ (22:14)
[2023-12-19] MEDS: ATORVASTATIN CALCIUM 40 MG TABLET PO (22:16)
[2023-12-19] MEDS: ZOLPIDEM TARTRATE 5 MG TABLET PO (22:16)
[2023-12-20] VITALS (18 sets, daily range): BP systolic 115–162; BP diastolic 63–83; PULSE 85–106; TEMP 36.3–36.6; O2SAT 91–97
[2023-12-20] MEDS: METHYLPREDNISOLONE SOD SUCC PF 40 MG/ML VIAL IVP ×4 (03:00→21:19)
[2023-12-20] MEDS: LACTATED RINGER'S SOLUTION 1,000 ML 125 ML IV ×3 (03:00→19:59)
[2023-12-20] MEDS: PIPERACILLIN SODIUM/TAZOBACTAM 3.375 GM in 0.9 % SODIUM CHLORIDE 50 ML IV ×3 (05:00→21:21)
[2023-12-20 05:41] LABS: Basophils Percent Auto 0.3 % (0.2-2.0); Hematocrit 31.6 % (36.0-48.0); Hemoglobin 10.4 g/dL (12.0-16.0); Immature Granulocytes Abs Auto 0.03 10^3/uL (0.00-0.03); Immature Granulocytes Pct Auto 0.3 % (0.0-0.5); Lymphocytes Absolute Auto 0.3 10^3/uL (1.2-3.8); Lymphocytes Percent Auto 2.8 % (20.5-60.0); Mean Corpuscular HGB Conc 32.9 g/dL (29.9-35.2); Mean Corpuscular Hemoglobin 30.1 pg (26.7-34.0); Mean Corpuscular Volume 91.3 fL (81.0-99.0); Mean Platelet Volume 9.5 fL (9.5-13.5); Monocytes Absolute Auto 0.4 10^3/uL (0.3-0.8); Monocytes Percent Auto 4.1 % (1.7-12.0); Neutrophils Percent Auto 92.5 % (43.0-75.0); Platelet Count 292 10^3/uL (150-450); Red Blood Count 3.46 10^6/uL (4.20-5.40); Red Cell Distribution Width 13.7 % (11.0-15.0); White Blood Count 10.8 10^3/uL (4.0-11.0)
[2023-12-20 06:03] LABS: Alanine Aminotransferase 12 U/L (14-59); Albumin Globulin Ratio 0.5; Albumin Level 2.1 g/dL (3.4-5.0); Alkaline Phosphatase 85 U/L (46-116); Aspartate Amino Transferase 18 U/L (15-37); BUN Creatinine Ratio 15.6; Bilirubin Total 0.3 mg/dL (0.2-1.0); Calcium 9.3 mg/dL (8.5-10.1); Carbon Dioxide 25.2 mmol/L (21.0-32.0); Chloride 105 mmol/L (98-107); Estimated GFR (African America 45 (>=60); Estimated GFR (Non-African Ame 37 (>=60); Glucose 161 mg/dL (74-106); Potassium 3.2 mmol/L (3.5-5.1); Sodium 139 mmol/L (136-145); Total Protein 6.1 g/dL (6.4-8.2)
[2023-12-20 06:15] LABS: PROCALCITONIN 11.36 ng/mL (0.00-0.50)
[2023-12-20 07:29] LABS: Glucometer 164 mg/dL (74-106)
--- NOTE | 2023-12-20 08:09 | PM.PLPN ---
Progress Note: A&P Assessment and Plan (1) Community acquired pneumonia: Assessment and Plan: Clinically appears to be slowly improving. WBC remains down. Continue antibiotics. Cultures negative so far. Qualifiers: Laterality: right Lung location: unspecified part of lung Qualified Code(s): J18.9 - Pneumonia, unspecified organism (2) Acute exacerbation of chronic obstructive pulmonary disease (COPD): Assessment and Plan: Continue current medications - bronchodilators, steroids. (3) Severe sepsis: Assessment and Plan: Supportive care. (4) Acute on chronic respiratory failure with hypoxia: Assessment and Plan: Resting O2 is down to 2L/min. Baseline is RA at rest, only O2 @ HS. (5) Polymyalgia rheumatica: Assessment and Plan: On chronic prednisone @ baseline. (6) Type 2 diabetes mellitus with hyperglycemia: Assessment and Plan: FSBS for steroid-induced hyperglycemia. (7) History of tobacco abuse: Assessment and Plan: Quit 03/06/2022 - 80 pack-year history. Plan Patient has appointment to F/U with me after discharge. Subjective Subjective Interval history: Patient still remains short of breath and weak, but overall slightly better than on admission. Feels that she is having a more productive cough today. Discussed that her WBC remains down from admission. Exam Constitutional Vital Signs, click to edit/add: Last Vital Signs Temp 97.6 F 12/20/23 03:04 Pulse 92 H 12/20/23 08:00 Resp 16 12/20/23 03:04 BP 115/71 12/20/23 03:04 Pulse Ox 95 12/20/23 03:04 O2 Del Method Nasal Cannula 12/20/23 03:04 O2 Flow Rate 2 12/20/23 03:04 Documenting provider has reviewed patient's vital signs: yes Other: Does not have as much accessory muscle use today. Breathing is less labored. She appears more tired, fatigued at this time. HENMT Other: Wearing nasal cannula. No candidiasis is present. Chest Other: Hypertympanic to percussion Respiratory Other: Breath sounds remain diminished. Slight improvement in bibasilar crackles/rhonchi. Cardio Other: RRR GI Inspection: normal to inspection Extremity Common normals: normal to inspection Neuro Motor exam: no tremor noted and no fasciculations Psych Other: A&O, tired.
[2023-12-20] MEDS: DULOXETINE HCL 30 MG CAPSULE.DR 90 MG PO (08:25)
[2023-12-20] MEDS: PREGABALIN 100 MG CAPSULE PO ×2 (08:25→21:21)
[2023-12-20] MEDS: CHOLECALCIFEROL (VITAMIN D3) 25 MCG/1,000 UNITS TABLET 50 MCG PO (08:25)
[2023-12-20] MEDS: OMEPRAZOLE 40 MG CAPSULE.DR PO ×2 (08:25→21:20)
[2023-12-20] MEDS: GUAIFENESIN 600 MG TAB.ER.12H 1200 MG PO ×2 (08:26→21:20)
[2023-12-20] MEDS: ASPIRIN 81 MG TABLET.DR PO (08:26)
[2023-12-20] MEDS: METOPROLOL TARTRATE 25 MG TABLET 12.5 MG PO ×2 (08:26→21:20)
[2023-12-20] MEDS: IPRATROPIUM BROMIDE 0.5 MG/2.5 ML VIAL.NEB IH ×2 (10:19→22:00)
[2023-12-20] MEDS: LEVALBUTEROL HCL 1.25 MG/3 ML VIAL NEB IH ×2 (10:19→22:00)
[2023-12-20 11:11] LABS: Glucometer 223 mg/dL (74-106)
--- NOTE | 2023-12-20 11:33 | PM.PN ---
Progress Note: Subjective Subjective Interval history: Patient improved this am. Less SOB and mild cough. Strength improved and ambulating around room. On 2 LPM and BP stable. Decreased appetite but no emesis or diarrhea. Afebrile. No chest pain or palpitations. Exam Constitutional Vital Signs, click to edit/add: Last Vital Signs Temp 97.8 F 12/20/23 08:30 Pulse 88 12/20/23 10:23 Resp 18 12/20/23 10:23 BP 127/80 12/20/23 08:30 Pulse Ox 97 12/20/23 10:23 O2 Del Method Nasal Cannula 12/20/23 10:23 O2 Flow Rate 2 12/20/23 10:23 Documenting provider has reviewed patient's vital signs: yes Common normals: no apparent distress, oriented x3 and alert HENMT Common normals: normocephalic Eye Common normals: PERRL and EOMs intact bilaterally Respiratory Common normals: normal respiratory effort Auscultation: diminished lung sounds Cardio Common normals: regular rate, regular rhythm, no gallops, no murmurs and no rub GI Common normals: Normal to inspection, nondistended, normoactive bowel sounds present and non-tender Extremity Common normals: no pedal edema Progress Note: Objective Labs Labs: Short CBC 12/20/23 Range/Units 05:34 WBC 10.8 (4.0-11.0) 10^3/uL Hgb 10.4 L (12.0-16.0) g/dL Hct 31.6 L (36.0-48.0) % Plt Count 292 (150-450) 10^3/uL BMP 12/20/23 05:34 Sodium 139 Potassium 3.2 L Chloride 105 Carbon Dioxide 25.2 BUN 22.0 H Creatinine 1.41 H Glucose 161 H Calcium 9.3 Liver Function 12/20/23 Range/Units 05:34 Total Bilirubin 0.3 (0.2-1.0) mg/dL AST 18 (15-37) U/L ALT 12 L (14-59) U/L Alkaline Phosphatase 85 (46-116) U/L Albumin 2.1 L (3.4-5.0) g/dL Progress Note: A&P Assessment and Plan (1) Severe sepsis: (2) Community acquired pneumonia: Qualifiers: Laterality: right Lung location: unspecified part of lung Qualified Code(s): J18.9 - Pneumonia, unspecified organism (3) Acute on chronic respiratory failure with hypoxia: (4) EUGENIE (acute kidney injury): (5) Urinary tract infection: (6) Acute exacerbation of chronic obstructive pulmonary disease (COPD): (7) Type 2 diabetes mellitus with hyperglycemia: (8) Essential hypertension: (9) CAD (coronary artery disease): (10) History of tobacco abuse: Plan Patient slowly improving. Continue antibiotics, steroids, and breathing treatments. Wean O2 as tolerated. Continue PT and increase ambulation. Monitor labs and vitals.
[2023-12-20] MEDS: INSULIN ASPART 300 UNIT/3 ML PEN SUBQ ×2 (11:44→18:04)
--- NOTE | 2023-12-20 11:45 | REH.PTDLY ---
Physical Therapy Daily Note PT Daily Note/Assess Start: 12/20/23 11:44 Freq: Status: Active Protocol: Document 12/20/23 11:44 MARS (Rec: 12/20/23 11:45 MARS [id number]) Visit Not Completed Visit Not Completed Due to: Pt refusing Other Reason Visit Not Completed Attempted 2 different times today to rx pt and pt refuses both times. States she will get up and ambulate with her sister later today. Physical Therapy Daily Note/Assessment Time In 11:40 Time Out 11:41
--- NOTE | 2023-12-20 11:48 | CM.NOTE ---
Rounds made with Dr. Henry. Dr. Henry encouraged to move in room and attempt to wean oxygen. Covert in agreement.
[2023-12-20 16:36] LABS: Glucometer 270 mg/dL (74-106)
[2023-12-20] MEDS: ACETAMINOPHEN 500 MG TABLET 1000 MG PO (18:05)
[2023-12-20] MEDS: LEVOFLOXACIN IN DEXTROSE 5 % 750 MG/150 ML IV.SOLN 100 MG IV (18:28)
[2023-12-20 21:06] LABS: Glucometer 115 mg/dL (74-106)
[2023-12-20] MEDS: ENOXAPARIN SODIUM 40 MG/0.4 ML SYRINGE SUBQ (21:19)
[2023-12-20] MEDS: ZOLPIDEM TARTRATE 5 MG TABLET PO (21:20)
[2023-12-20] MEDS: ATORVASTATIN CALCIUM 40 MG TABLET PO (21:20)
[2023-12-21] VITALS (7 sets, daily range): BP systolic 162; BP diastolic 79; PULSE 88–106; TEMP 36.4; O2SAT 92–96
[2023-12-21] MEDS: ACETAMINOPHEN 500 MG TABLET 1000 MG PO (00:07)
[2023-12-21] MEDS: LACTATED RINGER'S SOLUTION 1,000 ML 125 ML IV (03:53)
[2023-12-21] MEDS: METHYLPREDNISOLONE SOD SUCC PF 40 MG/ML VIAL IVP ×2 (03:53→08:19)
[2023-12-21] MEDS: LEVALBUTEROL HCL 1.25 MG/3 ML VIAL NEB IH (05:05)
[2023-12-21] MEDS: IPRATROPIUM BROMIDE 0.5 MG/2.5 ML VIAL.NEB IH (05:05)
[2023-12-21 05:14] LABS: Basophils Percent Auto 0.3 % (0.2-2.0); Eosinophils Percent Auto 0.3 % (0.9-7.0); Hemoglobin 10.3 g/dL (12.0-16.0); Immature Granulocytes Abs Auto 0.05 10^3/uL (0.00-0.03); Immature Granulocytes Pct Auto 0.4 % (0.0-0.5); Lymphocytes Absolute Auto 0.4 10^3/uL (1.2-3.8); Mean Corpuscular HGB Conc 32.2 g/dL (29.9-35.2); Mean Corpuscular Hemoglobin 29.6 pg (26.7-34.0); Mean Platelet Volume 9.6 fL (9.5-13.5); Monocytes Absolute Auto 0.8 10^3/uL (0.3-0.8); Monocytes Percent Auto 5.3 % (1.7-12.0); Neutrophils Absolute Auto 12.9 10^3/uL (1.4-6.5); Neutrophils Percent Auto 90.7 % (43.0-75.0); Platelet Count 333 10^3/uL (150-450); Red Blood Count 3.48 10^6/uL (4.20-5.40); Red Cell Distribution Width 13.7 % (11.0-15.0); White Blood Count 14.2 10^3/uL (4.0-11.0)
[2023-12-21 05:42] LABS: Alanine Aminotransferase 14 U/L (14-59); Albumin Globulin Ratio 0.6; Albumin Level 2.3 g/dL (3.4-5.0); Alkaline Phosphatase 86 U/L (46-116); Anion Gap 13.6; Aspartate Amino Transferase 20 U/L (15-37); BUN Creatinine Ratio 14.9; Bilirubin Total 0.4 mg/dL (0.2-1.0); Calcium 9.4 mg/dL (8.5-10.1); Carbon Dioxide 27.2 mmol/L (21.0-32.0); Chloride 103 mmol/L (98-107); Estimated GFR (African America 48 (>=60); Estimated GFR (Non-African Ame 40 (>=60); Glucose 149 mg/dL (74-106); Sodium 141 mmol/L (136-145); Total Protein 6.3 g/dL (6.4-8.2)
[2023-12-21 05:49] LABS: Potassium 2.8 mmol/L (3.5-5.1)
[2023-12-21] MEDS: PIPERACILLIN SODIUM/TAZOBACTAM 3.375 GM in 0.9 % SODIUM CHLORIDE 50 ML IV (05:50)
[2023-12-21 06:01] LABS: PROCALCITONIN 6.23 ng/mL (0.00-0.50)
--- NOTE | 2023-12-21 06:35 | PC.NURSE ---
physician notified of critical lab values
[2023-12-21] MEDS: POTASSIUM CHLORIDE 10 MEQ ER TABLET 40 MEQ PO (06:49)
[2023-12-21] MEDS: INSULIN ASPART 300 UNIT/3 ML PEN SUBQ (08:17)
[2023-12-21] MEDS: DULOXETINE HCL 30 MG CAPSULE.DR 90 MG PO (08:18)
[2023-12-21] MEDS: METOPROLOL TARTRATE 25 MG TABLET 12.5 MG PO (08:18)
[2023-12-21] MEDS: CHOLECALCIFEROL (VITAMIN D3) 25 MCG/1,000 UNITS TABLET 50 MCG PO (08:18)
[2023-12-21] MEDS: OMEPRAZOLE 40 MG CAPSULE.DR PO (08:18)
[2023-12-21] MEDS: GUAIFENESIN 600 MG TAB.ER.12H 1200 MG PO (08:18)
[2023-12-21] MEDS: ASPIRIN 81 MG TABLET.DR PO (08:18)
[2023-12-21] MEDS: PREGABALIN 100 MG CAPSULE PO (08:19)
--- NOTE | 2023-12-21 08:49 | CM.NOTE ---
Rounds made with Dr. Henry. Plan to discharge today. Will need a dose of Lasix IV before discharge today. Follow up with PCP ~1-2 weeks and Pulmonology in 1 week.
[2023-12-21] MEDS: FUROSEMIDE 40 MG TABLET PO (09:55)
--- NOTE | 2023-12-21 10:17 | P.DS_ITS ---
DS: Providers Provider Date of admission: 12/18/23 18:22 Primary care physician: Erasto Henry MD Consults: 12/18/23 18:50 Physical Therapy Eval and Treat Routine Reason for consultation: Weakness 12/19/23 08:09 Consult to Pulmonology Routine Consulting Provider: Fish Mora Reason for consultation: Pneum/Ac on Ch resp failure Has provider been notified: No DS: Diagnosis Discharge Diagnosis (1) Severe sepsis: (2) Community acquired pneumonia: Qualifiers: Laterality: right Lung location: unspecified part of lung Qualified Code(s): J18.9 - Pneumonia, unspecified organism (3) Acute on chronic respiratory failure with hypoxia: (4) EUGENIE (acute kidney injury): (5) Urinary tract infection: (6) Acute exacerbation of chronic obstructive pulmonary disease (COPD): (7) Type 2 diabetes mellitus with hyperglycemia: (8) Essential hypertension: (9) CAD (coronary artery disease): (10) History of tobacco abuse: DS: Summary Hospital Course Hospital Course: Reason for admission: See ER note and H&P for details. 68 y/o female with a history of COPD on nocturnal oxygen to ER with SOB. Increased SOB for several days. Frequent dry cough. Chest tight and hard to catch breath. Temp at home 103. [place] worse and worried going septic and to ER. SpO2 85% on room air. WBC and lactate elevate. BNP elevated and chest x-ray with pneumonia. Admitted for treatment. Hospital course: Initially concerned of CHF and did not give 30 mL/Kg fluid bolus. BP remained low and lactate elevated on repeat and started IV fluids. Started zosyn and levaquin for pneumonia. UA showed UTI. Started solu-medrol and breathing treatments. Slowly improved in hospital. BP improved and vitals stable. Able to wean down oxygen. Started PT for weakness. Urine culture showed UTI due to E. faecalis but sensitive to Levaquin. Ambulating well and strength improved. BNP elevated again and weight up. Stopped IV fluids and gave dose lasix. Discharged home in stable condition. Will take levaquin and augmentin which will treat pneumonia and UTI. Take prednisone tapered over 12 days. Resume home medication as directed. Follow up in office in 1-2 weeks. Time Spent with Patient Time attestation: Total time spent providing and/or coordinating discharge services: Time spent: greater than 30 minutes Exam Constitutional Vital Signs, click to edit/add: Last Vital Signs Temp 97.5 F L 12/21/23 04:02 Pulse 89 12/21/23 09:53 Resp 18 12/21/23 05:08 BP 162/79 H 12/21/23 04:02 Pulse Ox 96 12/21/23 05:08 O2 Del Method Nasal Cannula 12/21/23 05:08 O2 Flow Rate 2 12/21/23 05:08 Documenting provider has reviewed patient's vital signs: yes Common normals: no apparent distress, oriented x3 and alert HENMT Common normals: normocephalic Eye Common normals: PERRL and EOMs intact bilaterally Respiratory Common normals: normal respiratory effort Auscultation: crackles Laterality: posterior Cardio Common normals: regular rate, regular rhythm, no gallops, no murmurs and no rub GI Common normals: Normal to inspection, nondistended, normoactive bowel sounds present and non-tender Extremity Common normals: no pedal edema DS: Data Data Completed and Pending Labs on day of discharge: Labs from last 24 hours 12/21/23 12/20/23 12/20/23 04:29 21:05 16:34 WBC 14.2 H RBC 3.48 L Hgb 10.3 L Hct 32.0 L MCV 92.0 MCH 29.6 MCHC 32.2 RDW 13.7 Plt Count 333 MPV 9.6 Neut % (Auto) 90.7 H Lymph % (Auto) 3.0 L [place] % (Auto) 5.3 Eos % (Auto) 0.3 L Baso % (Auto) 0.3 Neut # (Auto) 12.9 H Lymph # (Auto) 0.4 L [place] # (Auto) 0.8 Eos # (Auto) 0.0 Baso # (Auto) 0.0 Abs Immat Gran (auto) 0.05 H Imm/Tot Granulo (auto) 0.4 Sodium 141 Potassium 2.8 L* Chloride 103 Carbon Dioxide 27.2 Anion Gap 13.6 BUN 20.0 H Creatinine 1.34 H Est GFR ( Amer) 48 L Est GFR (Non-Af Amer) 40 L BUN/Creatinine Ratio 14.9 Glucose 149 H Calcium 9.4 Total Bilirubin 0.4 AST 20 ALT 14 Alkaline Phosphatase 86 NT-Pro-B Natriuret Pep 3485.0 H* Total Protein 6.3 L Albumin 2.3 L Globulin 4.0 Albumin/Globulin Ratio 0.6 Procalcitonin 6.23 H POC Glucose 115 H 270 H 12/20/23 11:09 WBC RBC Hgb Hct MCV MCH MCHC RDW Plt Count MPV Neut % (Auto) Lymph % (Auto) [place] % (Auto) Eos % (Auto) Baso % (Auto) Neut # (Auto) Lymph # (Auto) [place] # (Auto) Eos # (Auto) Baso # (Auto) Abs Immat Gran (auto) Imm/Tot Granulo (auto) Sodium Potassium Chloride Carbon Dioxide Anion Gap BUN Creatinine Est GFR ( Amer) Est GFR (Non-Af Amer) BUN/Creatinine Ratio Glucose Calcium Total Bilirubin AST ALT Alkaline Phosphatase NT-Pro-B Natriuret Pep Total Protein Albumin Globulin Albumin/Globulin Ratio Procalcitonin POC Glucose 223 H Preliminary micro results at discharge 12/19/23 02:53 Sputum Culture - Preliminary Sputum - Expectorated Sputum 12/18/23 15:59 - Preliminary Blood NO GROWTH AT 36-48 HOURS. FINAL TO FOLLOW. 12/18/23 15:50 Blood Culture Result 1 - Preliminary Blood NO GROWTH AT 36-48 HOURS. FINAL TO FOLLOW. Discharge Plan Discharge Disposition: Home, Self-Care Discharge Medications: New prednisone 10 mg tablets,dose pack 10 mg PO DAILY Qty: 39 0RF Rx Instructions: 6 PO daily x 3 days, then 4 PO daily x 3 days, then 2 PO daily x 3 days, then 1 PO daily x 3 days levofloxacin 750 mg tablet 750 mg PO DAILY 7 Days Qty: 7 0RF amoxicillin-pot clavulanate 875-125 mg tablet 1 tab PO Q12H 14 Days Qty: 28 0RF Continued atorvastatin 40 mg tablet 40 mg PO .QHS cholecalciferol (vitamin D3) [Vitamin D3] 50 mcg (2,000 unit) tablet 50 mcg PO DAILY metoprolol tartrate 25 mg tablet 12.5 mg PO BID omeprazole 40 mg capsule,delayed release(DR/EC) 40 mg PO BID glipizide 5 mg tablet 5 mg PO DAILY Hold Instructions: Resume on 03/22/23. hold until follow up with pcp duloxetine 30 mg capsule,delayed release(DR/EC) 90 mg PO DAILY aspirin 81 mg tablet,delayed release (DR/EC) 81 mg PO DAILY mirabegron [Myrbetriq] 50 mg tablet extended release 24 hr 50 mg PO DAILY eszopiclone [Lunesta] 3 mg tablet 3 mg PO .QHS melatonin 5 mg tablet 5 mg PO .QHS pregabalin [Lyrica] 100 mg capsule 100 mg PO Q12H albuterol sulfate 90 mcg/actuation HFA aerosol inhaler 2 puff INHALATION Q4H PRN (Reason: shortness of breath or wheezing) guaifenesin 600 mg tablet extended release 12hr 1,200 mg PO BID amlodipine 5 mg tablet 5 mg PO DAILY Held prednisone 5 mg tablet 10 mg PO DAILY Hold Instructions: Hold until finish prednisone taper Activity: increase activity as tolerated Diet: advance to your usual diet Print Language: Japanese Patient Instructions: Prednisone (By mouth), Amoxicillin/Clavulanate Potassium (By mouth), Levofloxacin (By mouth), Urinary Tract Infection in Women (DC), Pneumonia (DC) Forms: Portal Instructions Referrals: Erasto Henry MD [Primary Care Provider] - Follow Up Appointments: January 28 @ 8:45am with Dr. Mora [phone] Make an appointment for a follow up with Dr. Henry within 5-7 days (when making your appointment, make sure they are aware you were admitted in the hospital to ensure soonest availability). [phone]
--- NOTE | 2023-12-21 10:36 | PT.DAILY ---
Physical Therapy Daily Note PT Daily Note/Assess Start: 12/20/23 11:44 Freq: Status: Active Protocol: Document 12/21/23 10:36 WILLEM (Rec: 12/21/23 10:36 WILLEM [id number]) Visit Not Completed Visit Not Completed Visit Not Completed Due to: Pt refusing Other Reason Visit Not Completed Refusing. Ride is here to take her home. Physical Therapy Daily Note/Assessment Time In/Time Out Time In 10:35 Time Out 10:35 Pain In Pain N/A Pain Out Pain N/A GG. Functional Abilities and Goals-Complete for Swing Bed Patients Only [id number]. Self-Care [id number]. Mobility
--- NOTE | 2023-12-24 15:47 | CM.DCFOLLOWU ---
1st attempt 12/24/23, no answer
--- NOTE | 2023-12-25 15:25 | CM.DCFOLLOWU ---
2nd attempt 12/25/23, no answer
--- NOTE | 2023-12-27 10:39 | CM.DCFOLLOWU ---
3rd attempt 12/27/23, no answer 3 attempts made, no answer each time
== END 2023-12-21 11:25 | disposition home or self-care (01) | DRG 871 ==
LOC: ER 16:38 → MS 18:26
PROVIDERS: Nurse Practitioner; Physician Assistant; Registered Nurse; Admitting Provider Family Medicine; Emergency Provider Emergency Medicine; PCP Family Medicine; Visit Provider Family Medicine
DX: A41.81 Sepsis due to Enterococcus (principal); J18.9 Pneumonia, unspecified organism; J96.21 Acute and chronic respiratory failure with hypoxia; J44.0 Chronic obstructive pulmonary disease with (acute) lower respiratory infection; N39.0 Urinary tract infection, site not specified; J44.1 Chronic obstructive pulmonary disease with (acute) exacerbation; N17.9 Acute kidney failure, unspecified; Z99.81 Dependence on supplemental oxygen; R65.20 Severe sepsis without septic shock; Z87.891 Personal history of nicotine dependence; E11.65 Type 2 diabetes mellitus with hyperglycemia; I10 Essential (primary) hypertension; M35.3 Polymyalgia rheumatica; J43.9 Emphysema, unspecified; I25.10 Atherosclerotic heart disease of native coronary artery without angina pectoris; I25.2 Old myocardial infarction; F32.A Depression, unspecified; K21.9 Gastro-esophageal reflux disease without esophagitis; Z90.2 Acquired absence of lung [part of]; Z95.5 Presence of coronary angioplasty implant and graft; Z79.82 Long term (current) use of aspirin; Z79.899 Other long term (current) drug therapy
CPT/HCPCS: 36415; 71045; 71250; 80053; 81001; 82948; 83605; 83880; 84145; 85007; 85025; 85027; 87040; 87070; 87086; 87106; 87150; 87186; 87205; 93005; 94640; 94667; 94668; 94761; 96361; 96365; 96366; 96367; 96368; 96372; 96375; 96376; 97161; 99285; J0696; J1650; J2543; J2919

== ENCOUNTER 2024-01-07 11:44 | Outpatient (OUT) | payer OTHER, MEDICARE, SELFPAY ==
[2024-01-07 12:03] LABS: Basophils Absolute Auto 0.1 10^3/uL (0.0-0.1); Basophils Percent Auto 0.3 % (0.2-2.0); Eosinophils Absolute Auto 0.1 10^3/uL (0.0-0.7); Eosinophils Percent Auto 0.5 % (0.9-7.0); Hematocrit 37.6 % (36.0-48.0); Hemoglobin 11.9 g/dL (12.0-16.0); Immature Granulocytes Abs Auto 0.12 10^3/uL (0.00-0.03); Immature Granulocytes Pct Auto 0.7 % (0.0-0.5); Lymphocytes Absolute Auto 0.8 10^3/uL (1.2-3.8); Lymphocytes Percent Auto 4.3 % (20.5-60.0); Mean Corpuscular HGB Conc 31.6 g/dL (29.9-35.2); Mean Corpuscular Hemoglobin 30.4 pg (26.7-34.0); Mean Corpuscular Volume 95.9 fL (81.0-99.0); Mean Platelet Volume 9.6 fL (9.5-13.5); Monocytes Absolute Auto 1.3 10^3/uL (0.3-0.8); Monocytes Percent Auto 7.2 % (1.7-12.0); Neutrophils Absolute Auto 15.9 10^3/uL (1.4-6.5); Platelet Count 380 10^3/uL (150-450); Red Blood Count 3.92 10^6/uL (4.20-5.40); Red Cell Distribution Width 13.8 % (11.0-15.0); White Blood Count 18.3 10^3/uL (4.0-11.0)
--- OUTSIDE RECORDS SUMMARY | 2024-01-07 12:04 | XMS_ITS | CCD ---
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 Name Role Phone BALAJI IMAN Admitting Unavailable NADERERERASTO Primary Care Unavailable NADERER, ERASTO Referring Unavailable Ahmed, Augustin Attending Unavailable NADERER, DR ERASTO Carrera Primary [...] Unavailable NADYUNI, DR ERASTO Carrera Admitting Unavailable NADERER, DR ERASTO Carrera Primary Care Unavailable NADERER, DR ERASTO Carrera Attending Unavailable ZIEBER, DR MIGUE Wild Consulting Unavailable NADERER, DR ERASTO Carrera Consulting Unavailable GRECHNY ., GRADY ARANDA Consulting Unavailbailey gonzales HAY ., DR MCCLELLAND Consulting Unavailable NADERETorri, DR ERASTO Carrera Primary Care Unavailable DORIS ., NARCISA Admitting Unavailable DORIS ., NARCISA Attending Unavailable ERICA, DR ASAEL Fox Consulting Unavailable DORIS .NARCISA Consulting Unavailable HEIKE, DR ERASTO Carrera Primary Care Unavailable NADERER, DR ERASTO Carrera Attending Unavailable NADERETorri, DR ERASTO Carrera Admitting Unavailable ERICA, DR ASAEL Fox Consulting Unavailable DORIS ., NARCISA Procedure [...] Attending Unavailable ZACH, DR AVINASH Pelayo Consulting Unavailabl e ZACH, DR AVINASH Pelayo Procedure Practitioner Audrey vailable MANJIT, ORESTES Procedure Practitioner Unavailab le ZIEBOLYA, DR MIGUE Wild Consulting Unavailable NADERER, DR ERASTO Carrera Consulting Unavailable SAMSA ., ISHAN Procedure Practitioner Unavailab le GRECHNY ., PA ROSI Consulting Unavailabl e MANJIT, ORESTES Consulting Unavailable SAMSA ., ISHAN Consulting Unavailable KLIPPOLYA, ASAEL Consulting Unavailable SCHNERUTHIE, STEPHEN Consulting Unavailable [...] Care Provider MD Remy Givens Attending Provider MERZA, NOORALDIN Referring Unavailable MOUKARBELJER Attending Unavailable MOUKARBELJER Attending Unavailable AVINASH SERRANO Referring Unavailable KAUSHAL, JAZMIN Admitting Unavailable HORANI, KONG Attending Unavailable MERZA, NOORALDIN Referring Unavailable HORANI, KONG Referring Unavailable MERZA, NOORALDIN Referring Unavailable Remy Givens Attending Unavailable Remy Givens Admitting Unavailable NadereErasto wild Primary Care Unavailable Allenr Erasto SALDIVAR Primary Care Provider Ihsan BROWN Attending Unavailable Ihsan BROWN Attending Unavailable Ihsan BROWN Attending Unavailable Iman Jeter Attending Unavaila ble Allergies Allergy Classification Reported Allergen(s) Allergy Type Date of Onset Reaction(s) Facility (4 sources) Azithromycin; Translations: [AZITHROMYCIN] Drug Allergy [address] [facility] Repository (5 sources) Latex; Translations: [LATEX] Drug allergy (disorder) [address] [facility] Repository (1 source) Azithromycin Drug Allergy 2 [facility] Repository (1 source) Latex Drug allergy (disorder) 2 [facility] Repository (1 source) Azithromycin Drug Allergy 3 [facility] (1 source) Latex Allergy to substance 3 [facility] (1 source) Azithromycin; Translations: [Zithromax] Drug Allergy [facility] Repository Medications Current Medications Medication Drug Class(es) [...] Active 40 MG PO Daily at bedtime Vivien 28th, 2022 11:00pm cholecalciferol 0.05 mg oral capsule [...] release oral tablet (1 source) Start: 05-30-20 23 take 1 tablet by mouth every twenty-four [...] mg oral capsule (2 sources) Start: 08-20-19 24 take 1 capsule by mouth three times [...] [Non-ST elevation (NSTEMI) myocardial infarction] Onset: 06-05-20 Chronic Chronic obstructive pulmonary disease and bronchiectasis (3 sources) Chronic obstructive pulmonary disease, unspecified; Translations: [Emphysema, unspecified] Onset: 12-19-19 Chronic Coronary atherosclerosis and other heart disease (4 sources) Atherosclerotic heart disease of [place] coronary artery without angina pectoris; Translations: [ATHSCL HEART DISEASE OF [place] CORONARY ARTERY W/O ANG PCTRS] Onset: 03-08-20 [...] 12-23-19 Chronic Other aftercare (5 sources) Other retirement (current) drug therapy; Translations: [OTH USP CURRENT DRUG THERAPY] Onset: 05-01-20 Episodic Other aftercare (1 source) Post-discharge follow-up; Translations: [Encounter for follow-up examination after completed treatment for conditions other than malignant neoplasm] Onset: 06-14-20 23 06-14-2023 Episodic Other circulatory disease (1 source) Raynaud's syndrome without gangrene; Translations: [RAYNAUDS SYNDROME WITHOUT GANGRENE] Onset: 06-12-20 22 Chronic Other connective tissue disease (2 sources) Polymyalgia rheumatica; Translations: [POLYMYALGIA RHEUMATICA] Onset: 03-08-20 Chronic Other gastrointestinal disorders (1 source) Dysphagia, unspecified; Translations: [Dysphagia, unspecified] Onset: 06-26-20 23 Episodic Other lower respiratory disease (4 sources) [...] cell arteritis; 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] Onset: 10-15-19 Chronic Unclassified (1 source) SPONTANEOUS PNEUMO Onset: 03-08-20 Unclassified (1 source) CONTACT W/AND (SUSP) EXPOS COVID-19; Translations: [CONTACT W/AND (SUSP) EXPOS COVID-19] Onset: 05-01-20 Unclassified (1 source) THROMBOCYTOSIS UNSPECIFIED; Translations: [THROMBOCYTOSIS UNSPECIFIED] Onset: 04-04-20 Past or Other Problems Problem Classification Problem Date Documented Da te Episodic/Chronic Deficiency and other anemia (1 source) Other iron deficiency anemias; Translations: [OTHER IRON DEFICIENCY ANEMIAS] Onset: 05-01-2022 Episodic Nutritional deficiencies (1 source) Cachexia; Translations: [CACHEXIA] Onset: 04-04-2022 Episodic Other aftercare (1 source) 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; Translations: [USP CURRENT USE OF ASPIRIN] Onset: 05-01-2022 Episodic Other aftercare (1 source) senior living (current) use of antithrombotics/ant iplatelets; Translations: [AUTOMOTIVE QUALITY MANAGER ANTITHROMBOT/ANTIPL ATLETS] Onset: 03-16-2022 Episodic Other circulatory [...] Interpretation Reference Range Facility Consent for Procedure/Surger [facility] 11-12-2023 Consent for Procedure/Surgery [id number] [facility] Patient Educationon 11-09-19 Patient Education Urology Urethral [...] including vitamins, herbs, eye drops, creams, and heiy-smd-qtzsiyb medicines. ? Any problems you or family [...] tells you to take them. ? Taking dygd-jxe-qdpvsgu medicines, vitamins, herbs, and supplements. General instructions [...] these instructions at home: Medicines ? Take vlyv-esb-qcvmzbc and prescription medicines only as told by [...] to prevent or treat constipation: ? Take udof-egd-doykejg or prescription medicines. ? Eat foods that [...] You pa (more content not included)... Normal [facility] Urology Office/Clinic Noteon 11-09-2023 Urology Office/Clinic [...] Tight The Urethra was dilated to: 20-32 Omani with sounds. Specimens Removed: None Postoperative Information [...] Contact Information KEVIN SALDIVAR, Ihsan Wild, URL [address] [place] [address]- Additional Instructions: 6 mos w/ IO UD [...] Vitamin D3 (more content not included)... Normal [facility] Comment on above: Result Comment: Elec tronically Signed By: Ihsan BROWN MD\.br\Date and Time Signed: 11/09/23 12:24 EDT\.br\Electronically Co-Signed By: Amanda Camara.br\Date and Time Co-Signed: 11/09/23 12:14 EDT Office Visiton 06-27-2023 Follow-up visit [id number] Covert,Lise Easton 1955 F Date Provider Department Center 06/27/2023 JER LARRY MARC Kirk Family History Problem Relation Age of Onset Stroke Father Stroke Father's Sister Coronary artery disease Paternal Grandmother Family Status - Relation Status Age at Father Father's Sister Paternal Grandmother Level of Service:79192 [place] OFFICE/OUTPATIENT ESTABLISHED LOW MDM 20 MIN Normal [facility] 30on 06-06-2023 30 The patient [...] Outcome: Adequate for Discharge Flowsheets (Taken 06/06/2023 08) Discharge to home or other facility with appropriate resources: Identify barriers to discharge with patient and caregiver Arrange for needed discharge resources and transportation as appropriate Problem: Chronic Conditions and Co-morbidities Goal: Patient's chronic conditions and co-morbidity symptoms are monitored and maintained or improved Outcome: Adequate for Discharge Flowsheets (Taken 06/06/2023 08) Care Plan - Patient's Chronic Conditions and Co-Morbidity Symptoms are Monitored and Maintained or Improved: Monitor and assess patient's chronic conditions and comorbid symptoms for stability, deterioration, or improvement Normal [facility] BASIC METABOLIC PANELon 11-2 Anion gap [Moles/Vol] 9 mmol/L Normal 7-20 [facility] Comment on above: Performed By: #### L [id number] #### [facility] [address] [place] [address] Calcium [Mass/Vol] 8.3 mg/dL Low 8.6-10.3 [facility] Comment on above: Performed By: #### L [id number] #### [facility] ([facility]) [address] [place] [address] Chloride [Moles/Vol] 99 mmol/L Normal 98-107 [facility] Comment on above: Performed By: #### L [id number] #### [facility] ([facility]) [address] [place] [address] CO2 [Moles/Vol] 26 mmol/L Normal 21-31 [facility] Comment on above: Performed By: #### L [id number] #### [facility] ([facility]) [address] [place] [address] Creatinine [Mass/Vol] 0.72 mg/dL Normal 0.60-1.20 [facility] Comment on above: Performed By: #### L [id number] #### [facility] ([facility]) [address] [place] [address] GLOMERULAR FILTRATION RATE ML/MIN/1.73 SQ M.PREDICTED 92.2 mL/min/1.73m*2 Normal >60.0 [facility] Comment on above: Result Comment: The [facility]???s estimated glomerular filtration rate (eGFR) [...] group of individuals. Performed By: #### L [id number] #### [facility] ([facility]) [address] [place] [address] Glucose [Mass/Vol] 107 mg/dL High 70-100 [facility] Comment on above: Performed By: #### L [id number] #### [facility] ([facility]) [address] [place] [address] Potassium [Moles/Vol] 3.9 mmol/L Normal 3.5-5.1 [facility] Comment on above: Performed By: #### L [id number] #### [facility] ([facility]) [address] [place] [address] Sodium [Moles/Vol] 130 mmol/L Low 136-145 [facility] Comment on above: Performed By: #### L [id number] #### [facility] ([facility]) [address] [place] [address] Urea nitrogen [Mass/Vol] 12 mg/dL Normal 7-25 [facility] Comment on above: Performed By: #### L [id number] #### [facility] ([facility]) [address] [place] [address] UREA NITROGEN/CREATININE (MASS RATIO) IN SER/PLAS 16.7 Normal [facility] Comment on above: Performed By: #### L [id number] #### [facility] ([facility]) [address] [place] [address] CBCon 06-06-2023 Erythrocyte distribution width (RBC) [Ratio] 13.4 % Normal 11.5-15.0 [facility] Comment on above: Performed By: #### L [id number] #### [facility] ([facility]) [address] [place] [address] ERYTHROCYTE MEAN CORPUSCULAR HEMOGLOBIN CONCENTRATION (G/DL) BY AUTOMATED 33.4 g/dL Normal 32.0-35.0 [facility] Comment on above: Performed By: #### L [id number] #### [facility] (BE[facility]) [address] [place] [address] Hematocrit (Bld) [Volume fraction] 28.7 % Low 36.0-48.0 [facility] Comment on above: Performed By: #### L [id number] #### [facility] [address] [place] [address] Hemoglobin (Bld) [Mass/Vol] 9.6 g/dL Low 12.0-15.0 [facility] Comment on above: Performed By: #### L [id number] #### [facility] ([facility]) [address] [place] [address] MCH (RBC) [Entitic mass] 28.2 pg Normal 27.0-33.0 [facility] Comment on above: Performed By: #### L [id number] #### [facility] ([facility]) [address] [place] [address] MCV (RBC) [Entitic vol] 84.4 fL Normal 82.0-98.0 [facility] Comment on above: Performed By: #### L [id number] #### [facility] ([facility]) [address] [place] [address] PLATELETS (10*3/UL) IN BLOOD AUTOMATED COUNT 522 10*3/uL High 150-400 [facility] Comment on above: Performed By: #### L [id number] #### [facility] ([facility]) [address] [place] [address] RBC (Bld) [#/Vol] 3.40 10*6/uL Low 3.80-5.00 [facility] Comment on above: Performed By: #### L [id number] #### [facility] ([facility]) [address] [place] [address] WBC (Bld) [#/Vol] 10.31 10*3/uL Normal 4.00-10.60 [facility] Comment on above: Performed By: #### L [id number] #### [facility] ([facility]) [address] [place] [address] Letter (Out)on 06-06-2023 Letter (Out) [id number] Covert,Lise Easton 1955 F Date Provider Department Center 06/06/2023 [id number], GENERIC PRO*INIT None Family History Problem Relation Age of Onset Stroke Father Stroke Father's Sister Coronary artery disease Paternal Grandmother Family Status - Relation Status Age at Father Father's Sister Paternal Grandmother Normal [facility] MAGNESIUMon 06-06-2023 Magnesium [Mass/Vol] 1.9 mg/dL Normal 1.9-2.7 [facility] Comment on above: Performed By: #### L [id number] #### [facility] ([facility]) [address] [place] [address] 30on 06-05-2023 30 The patient is Moderately Stable - Low risk of patient condition declining or worsening The patient's goals for the shift include comfort The clinical goals for the shift include stable vitals Normal [facility] 30 Daily Case Managemen t Update Multidisciplinary rounds have been completed. Barriers to Discharge: Transfer from [place] for chest pain and NSTEMI. TTE ordered. Pending cardio rec. Trop was .06 down to .04. +UTI and Pneumonia. Continue IV Rocephin. Urine and blood cultures pending. Patient is from home with [facility] and 2L home 02 Diet: Dietary Orders [...] your name here: DANIEL GUERIN 06/05/23 1508 [facility] 30 The patient is Moderately Unstable - Medium risk of patient condition declining or worsening The patient's goals for the shift include comfort The clinical goals for the shift include vss Over the shift, the patient did not make progress toward the following goals. Barriers to progression include . Recommendations to address these barriers include . [facility] 30 The patient is Moderately Stable [...] injury: Assess patient frequently for physical needs Lindsay fall precautions as indicated by assessment Identify [...] maintained or improved Outcome: Progressing Flowsheets (Taken 06/05/2023 0048) Care Plan - Patient's Chronic Conditions and [...] and prevent overall improvement and discharge Normal [facility] 30 The patient is Moderately Stable - Low risk of patient condition declining or worsening The patient's goals for the shift include comfort The clinical goals for the shift include VSS Normal [facility] ANTI-XA (HEPARIN LEVEL)on HEPARIN UNFRACTIONATED (U/ML) IN PPP BY CHROMOGENIC METHOD <0.10 Invalid Interpretation Code 0.3-0.7 [facility] Comment on above: Order Comment: Check anti-Xa level every 6 hours while on heparin infusion, or per protocol. Result Comment: Lenka roxaban and Apixaban will interfere with the anti Xa assay used to monitor UFH and LMWH. Performed By: #### L [id number] #### [facility] (AKER) [address] [place] [address] HEPARIN UNFRACTIONATED (U/ML) IN PPP BY CHROMOGENIC METHOD <0.10 Invalid Interpretation Code 0.3-0.7 [facility] Comment on above: Order Comment: Check anti-Xa level every 6 hours while on heparin infusion, or per protocol. Result Comment: Lenka roxaban and Apixaban will interfere with the anti Xa assay used to monitor UFH and LMWH. Performed By: #### L [id number] #### [facility] ([facility]) [address] [place] [address] APTTon 06-05-2023 ACTIVATED PARTIAL THROMBOPLASTIN TIME IN PPP BY COAGULATION ASSAY 38.8 Seconds High 25.0-35.0 [facility] Comment on above: Result Comment: Clin ical significance of the APTT is questionable in the presence of heparin. Performed By: #### L [id number] #### [facility] ([facility]) [address] [address] B-TYPE NATRIURETIC PEPTIDEon 06-05-2023 Natriuretic peptide B (Bld) [Mass/Vol] 136 pg/mL High 0-100 [facility] Comment on above: Performed By: #### L [id number] ####[facility] ([facility])[address] [place] [address] BLOOD CULTUREon 06-05-2023 Bacteria identified Cx Nom (Bld) No growth at 5 days Normal [facility] Comment on above: Performed By: #### L [id number] ####[facility] ([facility])[address] [place] [address] Order Comment: From a different site than #1. CBC WITH AUTO DIFFERENTIALon 06-05-2023 Basophils (Bld) [#/Vol] 0.05 10*3/uL Normal 0.00-0.20 [facility] Comment on above: Performed By: #### L [id number] #### [facility] ([facility]) [address] [place] [address] Basophils/100 WBC (Bld) 0.3 % Normal 0.0-1.0 [facility] Comment on above: Performed By: #### L [id number] #### [facility] ([facility]) [address] [place] [address] Eosinophils (Bld) [#/Vol] 0.02 10*3/uL Normal 0.00-0.50 [facility] Comment on above: Performed By: #### L [id number] #### [facility] ([facility]) [address] [place] [address] Eosinophils/100 WBC (Bld) 0.1 % Normal 0.0-6.0 [facility] Comment on above: Performed By: #### L [id number] #### [facility] ([facility]) [address] [place] [address] Erythrocyte distribution width (RBC) [Ratio] 13.3 % Normal 11.5-15.0 [facility] Comment on above: Performed By: #### L [id number] #### [facility] ([facility]) [address] [place] [address] ERYTHROCYTE MEAN CORPUSCULAR HEMOGLOBIN CONCENTRATION (G/DL) BY AUTOMATED 32.4 g/dL Normal 32.0-35.0 [facility] Comment on above: Performed By: #### L [id number] #### [facility] ([facility]) [address] [place] [address] Hematocrit (Bld) [Volume fraction] 35.8 % Low 36.0-48.0 [facility] Comment on above: Performed By: #### L [id number] #### [facility] ([facility]) [address] [place] [address] Hemoglobin (Bld) [Mass/Vol] 11.6 g/dL Low 12.0-15.0 [facility] Comment on above: Performed By: #### L [id number] #### [facility] ([facility]) [address] [place] [address] Immature granulocytes (Bld) [#/Vol] 0.17 10*3/uL Normal 0.00-0.20 [facility] Comment on above: Performed By: #### L [id number] #### [facility] ([facility]) [address] [place] [address] Immature granulocytes/100 WBC (Bld) 1.0 % Normal 0.0-1.0 [facility] Comment on above: Performed By: #### L [id number] #### [facility] ([facility]) [address] [place] [address] Lymphocytes (Bld) [#/Vol] 0.80 10*3/uL Low 1.20-4.00 [facility] Comment on above: Performed By: #### L [id number] #### [facility] ([facility]) [address] [place] [address] Lymphocytes/100 WBC (Bld) 4.6 % Low 20.0-45.0 [facility] Comment on above: Performed By: #### L [id number] #### [facility] ([facility]) [address] [place] [address] MCH (RBC) [Entitic mass] 28.3 pg Normal 27.0-33.0 [facility] Comment on above: Performed By: #### L [id number] #### [facility] [address] [place] [address] MCV (RBC) [Entitic vol] 87.3 fL Normal 82.0-98.0 [facility] Comment on above: Performed By: #### L [id number] #### [facility] [address] [place] [address] Monocytes (Bld) [#/Vol] 0.78 10*3/uL Normal 0.10-1.00 [facility] Comment on above: Performed By: #### L [id number] #### [facility] ([facility]) [address] [place] [address] Monocytes/100 WBC (Bld) 4.5 % Low 5.0-12.0 [facility] Comment on above: Performed By: #### L [id number] #### [facility] ([facility]) [address] [place] [address] Neutrophils (Bld) [#/Vol] 15.46 10*3/uL High 1.60-7.60 [facility] Comment on above: Performed By: #### L [id number] #### [facility] ([facility]) [address] [place] [address] Neutrophils/100 WBC (Bld) 89.5 % High 40.0-72.0 [facility] Comment on above: Performed By: #### L [id number] #### [facility] ([facility]) [address] [place] [address] NRBC (PER 100 WBCS) BY AUTOMATED COUNT 0.0 % Normal 0 [facility] Comment on above: Performed By: #### L [id number] #### [facility] [address] [place] [address] PLATELETS (10*3/UL) IN BLOOD AUTOMATED COUNT 517 10*3/uL High 150-400 [facility] Comment on above: Performed By: #### L [id number] #### [facility] [address] [place] [address] RBC (Bld) [#/Vol] 4.10 10*6/uL Normal 3.80-5.00 [facility] Comment on above: Performed By: #### L [id number] #### [facility] [address] [place] [address] WBC (Bld) [#/Vol] 17.28 10*3/uL High 4.00-10.60 [facility] Comment on above: Performed By: #### L [id number] #### [facility] [address] [place] [address] COMPREHENSIVE METABOLIC PANE [place] 06-05-2023 ALANINE AMINOTRANSFERASE (SGPT) (U/L) IN SER/PLAS <3 Low 7-52 [facility] Comment on above: Performed By: #### L [id number] #### [facility] ([facility]) [address] [place] [address] Albumin [Mass/Vol] 3.1 g/dL Low 3.5-5.7 [facility] Comment on above: Performed By: #### L [id number] #### [facility] ([facility]) [address] [place] [address] ALP [Catalytic activity/Vol] 83 U/L Normal 34-104 [facility] Comment on above: Performed By: #### L [id number] #### [facility] ([facility]) [address] [place] [address] Anion gap [Moles/Vol] 13 mmol/L Normal 7-20 [facility] Comment on above: Performed By: #### L [id number] #### [facility] ([facility]) [address] [place] [address] AST [Catalytic activity/Vol] 14 U/L Normal 13-39 [facility] Comment on above: Performed By: #### L [id number] #### [facility] ([facility]) [address] [place] [address] Bilirubin [Mass/Vol] 0.3 mg/dL Normal 0.3-1.0 [facility] [facility] Comment on above: Performed By: #### L [id number] #### [facility] ([facility]) [address] [place] [address] Calcium [Mass/Vol] 8.9 mg/dL Normal 8.6-10.3 [facility] Comment on above: Performed By: #### L [id number] #### [facility] ([facility]) [address] [place] [address] Chloride [Moles/Vol] 98 mmol/L Normal 98-107 [facility] Comment on above: Performed By: #### L [id number] #### [facility] ([facility]) [address] [place] [address] CO2 [Moles/Vol] 25 mmol/L Normal 21-31 [facility] Comment on above: Performed By: #### L [id number] #### [facility] ([facility]) [address] [place] [address] Creatinine [Mass/Vol] 0.96 mg/dL Normal 0.60-1.20 [facility] Comment on above: Performed By: #### L [id number] #### [facility] ([facility]) [address] [place] [address] GLOMERULAR FILTRATION RATE ML/MIN/1.73 SQ M.PREDICTED 65.3 mL/min/1.73m*2 Normal >60.0 [facility] Comment on above: Result Comment: [facility]???s estimated glomerular filtration rate (eGFR) [...] group of individuals. Performed By: #### L [id number] #### [facility] ([facility]) [address] [place] [address] Glucose [Mass/Vol] 93 mg/dL Normal 70-100 [facility] Comment on above: Performed By: #### L [id number] #### [facility] ([facility]) [address] [place] [address] Potassium [Moles/Vol] 3.3 mmol/L Low 3.5-5.1 [facility] Comment on above: Performed By: #### L [id number] #### [facility] ([facility]) [address] [place] [address] Protein [Mass/Vol] 5.7 g/dL Low 6.0-8.3 [facility] Comment on above: Performed By: #### L [id number] #### [facility] ([facility]) [address] [place] [address] Sodium [Moles/Vol] 133 mmol/L Low 136-145 [facility] Comment on above: Performed By: #### L [id number] #### [facility] ([facility]) [address] [place] [address] Urea nitrogen [Mass/Vol] 12 mg/dL Normal 7-25 [facility] Comment on above: Performed By: #### L [id number] #### [facility] ([facility]) [address] [place] [address] UREA NITROGEN/CREATININE (MASS RATIO) IN SER/PLAS 12.5 Normal [facility] Comment on above: Performed By: #### L [id number] #### [facility] ([place]) [address] [place] [address] CONSULTon 06-05-2023 CONSULT - Attestation signed by [...] Nausea / Vomiting and Urinary symptoms to [facility], there she was found to have UTI, labs showed WBC of 17 and she was started on IV antibiotics, work up also showed high sensitive troponin of 62, She doesn't report any chest pain, or discomfort. She was started on heparin drip and was transferred here to [facility]. Today she reports no chest pain or [...] 3 06/03/2023 cholecalciferol (Vitamin D-3) 50 MCG (1999 UT) tablet Take 50 mcg by mouth [...] ) 49.9 kg (110 lb 0.2 oz) 06/05/23 0017 129/80 36.8 ???C (98.2 ???F) Temporal 98 [...] bilaterally. NEURO: (more content not included)... Normal [facility] ETHANOLon 06-05-2023 ETHANOL (MG/DL) IN SER/PLAS <10 Normal [facility] Comment on above: Performed By: #### L [id number] #### [facility] ([facility]) [address] [place] [address] ETHANOL CALCULATED (%) Normal [facility] Comment on above: Performed By: #### L [id number] #### [facility] ([facility]) [address] [place] [address] HEMOGLOBIN A1Con 06-05-2023 Glucose [Mass/Vol] 160 mg/dL Normal [facility] Comment on above: Performed By: #### L [id number] ####[facility] ([facility])[address] [place] [address] HbA1c (Bld) [Mass fraction] 7.2 % High 4.0-6.0 [facility] Comment on above: Performed By: #### L [id number] ####[facility] ([facility])[address] [place] [address] LACTIC ACID WITH 4 HOUR REFL EXon 06-05-2023 LACTATE (MMOL/L) IN SER/PLAS 1.1 mmol/L Normal 0.5-2.2 [facility] Comment on above: Performed By: #### L [id number] #### [facility] ([facility]) [address] [place] [address] LEGIONELLA ANTIGEN, URINEon 06-05-2023 LEGIONELLA AG, UR Negative Normal NEG [facility] Comment on above: Result Comment: L. p neumophila serogroup 1 antigen not detected. A negative result does not exclude infection with Leginella pnemophila serogroup 1 nor does it rule out other microbial-caused respiratory infections of disease caused by other serogroups of Legionella pneumophila. Test Performed by [employer] [facility] [place] [address] - Released 06/05/2023 12:36 Performed By: #### L [id number] ####[employer] [id number] [place] [address] LIPID PANELon 06-05-2023 CHOL/HDL 1.6 mg/dL Normal [facility] Comment on above: Performed By: #### L [id number] #### [facility] ([facility]) [address] [place] [address] Cholesterol [Mass/Vol] 74 mg/dL Low 120-200 [facility] Comment on above: Performed By: #### L [id number] #### [facility] ([facility]) [address] [place] [address] Magnesium [Mass/Vol] 65 mg/dL Normal 40-149 [facility] Comment on above: Result Comment: TRIG LYCERIDE REFERENCE RANGE: 20 YEARS AND OLDER CARDIOVASCULAR RISK LESS THAN 150 mg/dL LOW RISK 150 TO 199 mg/dL BORDERLINE RISK 200 mg/dL AND GREATER HIGH RISK Performed By: #### L [id number] #### [facility] ([facility]) [address] [place] [address] Magnesium [Mass/Vol] 14 mg/dL Normal 0-160 [facility] Comment on above: Performed By: #### L [id number] #### [facility] ([facility]) [address] [place] [address] Magnesium [Mass/Vol] 47 mg/dL Normal 23-92 [facility] Comment on above: Performed By: #### L [id number] #### [facility] ([facility]) [address] [place] [address] NON HDL CHOL. (LDL+VLDL) 27 Normal [facility] Comment on above: Performed By: #### L [id number] #### [facility] ([facility]) [address] [place] [address] TOTAL VLDL-C 13 mg/dL Normal 0-40 [facility] Comment on above: Performed By: #### L [id number] #### [facility] ([facility]) [address] [place] [address] MAGNESIUMon 06-05-2023 Magnesium [Mass/Vol] 1.1 mg/dL Low 1.9-2.7 [facility] Comment on above: Performed By: #### L [id number] ####[facility] ([facility])[address] [place] [address] PHOSPHORUSon 06-05-2023 Magnesium [Mass/Vol] 2.8 mg/dL Normal 2.5-5.0 [facility] Comment on above: Performed By: #### L [id number] ####[facility] ([facility])[address] [place] [address] PROTIME-INRon 06-05-2023 INR IN PPP BY COAGULATION ASSAY 1.25 High 0.90-1.10 [facility] Comment on above: Result [...] 1995;[id number]. Performed By: #### L [id number] #### [facility] ([facility]) [address] [place] [address] PROTHROMBIN TIME (PT) IN PPP BY COAGULATION ASSAY 15.7 Seconds High 12.3-14.8 [facility] Comment on above: Performed By: #### L [id number] #### [facility] ([facility]) [address] [place] [address] TOXICOLOGY PANEL URINEon AMPHETAMINE+METHAMPHE TAMINE SCREEN (PRESENCE) IN URINE Negative Normal Negative [facility] Comment on above: Performed By: #### L [id number] ####[facility] ([facility])[address] [place] [address] BARBITURATES PRESENCE IN URINE BY SCREEN METHOD Negative Normal Negative [facility] Comment on above: Performed By: #### L [id number] ####[facility] ([facility])[address] [place] [address] Benzodiazepines Ql (U) Negative Normal Negative [facility] Comment on above: Performed By: #### L [id number] ####[facility] [place] [address] CANNABINOID (PRESENCE) IN URINE BY SCREEN METHOD Negative Normal Negative [facility] Comment on above: Performed By: #### L [id number] ####[facility] ([facility])[address] [place] [address] Cocaine Ql (U) Negative Normal Negative [facility] Comment on above: Performed By: #### L [id number] ####[facility] ([facility])[address] [place] [address] METHADONE (PRESENCE) IN URINE BY SCREEN METHOD Negative Normal Negative [facility] Comment on above: Performed By: #### L [id number] ####[facility] ([facility])[address] [place] [address] OPIATES (PRESENCE) IN URINE BY SCREEN METHOD Positive Abnormal Negative [facility] Comment on above: Performed By: #### L [id number] ####[facility] ([facility])[address] [place] [address] PHENCYCLIDINE PRESENCE IN URINE BY SCREEN METHOD Negative Normal Negative [facility] Comment on above: Performed By: #### L [id number] ####[facility] ([facility])[address] [place] [address] Propoxyphene Screen Ql (U) Negative Normal Negative [facility] Comment on above: Performed By: #### L [id number] ####[facility] ([facility])[address] [place] [address] TRICYCLIC ANTIDEPRESSANTS (PRESENCE) IN URINE Negative Normal Negative [facility] Comment on above: Performed By: #### L [id number] ####[facility] ([facility])[address] [place] [address] TROPONIN Ion 06-05-2023 Troponin I.cardiac [Mass/Vol] 0.04 ng/mL Normal 0.00-0.04 [facility] Comment on above: Performed By: #### L [id number] #### [facility] ([facility]) [address] [place] [address] Troponin I.cardiac [Mass/Vol] 0.06 ng/mL High 0.00-0.04 [facility] Comment on above: Performed By: #### L [id number] #### [facility] ([facility]) [address] [place] [address] TSH3 REFLEX TO FT4on 023 THYROTROPIN (MIU/L) IN SER/PLAS BY DETECTION LIMIT <= 0.05 MIU/L 1.46 mIU/L Normal 0.34-5.60 [facility] Comment on above: Performed By: #### L [id number] #### [facility] ([facility]) [address] [place] [address] URINALYSIS MICROSCOPIC WITH REFLEX CULTUREon 06-05-2023 CASTS IN URINE Normal [facility] Comment on above: Performed By: #### L [id number] #### [facility] ([facility]) [address] [place] [address] CRYSTALS IN URINE Normal [facility] Comment on above: Performed By: #### L [id number] #### [facility] ([facility]) [address] [place] [address] OTHER MICROSCOPIC ELEMENTS Normal [facility] Comment on above: Performed By: #### L [id number] #### [facility] ([facility]) [address] [place] [address] RBC (#/HPF) IN URINE SEDIMENT 6-10 Abnormal None Seen [facility] Comment on above: Performed By: #### L [id number] #### [facility] ([facility]) [address] [place] [address] SQUAMOUS EPITHELIAL CELLS (#/HPF) IN URINE SEDIMENT Many Abnormal None Seen, Occasional [facility] Comment on above: Performed By: #### L [id number] #### [facility] ([facility]) [address] [place] [address] WBC (LEUKOCYTE) (#/HPF) IN URINE SEDIMENT >100 Abnormal None Seen [facility] Comment on above: Performed By: #### L [id number] #### [facility] ([facility]) [address] [place] [address] URINALYSIS WITH REFLEX CULTU REon 06-05-2023 BILIRUBIN, TOTAL PRESENCE IN URINE Negative Normal Negative [facility] Comment on above: Performed By: #### L [id number] #### [facility] ([facility]) [address] [place] [address] Clarity (U) Clear Normal Clear [facility] Comment on above: Performed By: #### L [id number] #### [facility] ([facility]) [address] [place] [address] Color (U) Yellow Normal Yellow [facility] Comment on above: Performed By: #### L [id number] #### [facility] ([facility]) [address] [place] [address] Glucose (U) [Mass/Vol] Negative Normal Negative [facility] Comment on above: Performed By: #### L [id number] #### [facility] ([facility]) [address] [place] [address] HEMOGLOBIN PRESENCE IN URINE Moderate Abnormal Negative [facility] Comment on above: Performed By: #### L [id number] #### [facility] ([facility]) [address] [place] [address] Ketones Ql (U) Trace Abnormal Negative [facility] Comment on above: Performed By: #### L [id number] #### [facility] ([facility]) [address] [place] [address] LEUKOCYTE ESTERASE PRESENCE IN URINE BY TEST STRIP Large Abnormal Negative [facility] Comment on above: Performed By: #### L [id number] #### [facility] ([facility]) [address] [facility] [place] [address] NITRITE PRESENCE IN URINE Positive Abnormal Negative [facility] Comment on above: Performed By: #### L [id number] #### [facility] ([facility]) [address] [facility] [place] [address] pH (U) 6.0 [pH] Normal 5.0-8.0 [facility] Comment on above: Performed By: #### L [id number] #### [facility] ([facility]) [address] [place] [address] Protein (U) [Mass/Vol] 30 mg/dL Abnormal Negative [facility] Comment on above: Performed By: #### L [id number] #### [facility] ([facility]) [address] [place] [address] Specific gravity (U) [Rel density] 1.012 Low 1.015-1.020 [facility] Comment on above: Performed By: #### L [id number] #### [facility] ([facility]) [address] [place] [address] Consent for Procedure/Surger yon 04-17-2023 Consent for Procedure/Surgery [id number] Normal [facility] Patient Educationon 04-16-20 23 Patient Education [...] including vitamins, herbs, eye drops, creams, and uqnc-glb-tlhrubs medicines. ? Any problems you or family [...] tells you to take them. ? Taking yuoh-clt-tpejohy medicines, vitamins, herbs, and supplements. General instructions [...] these instructions at home: Medicines ? Take dbmd-pel-lamvwea and prescription medicines only as told by [...] to prevent or treat constipation: ? Take cfju-fpm-ifhwrug or prescription medicines. ? Eat foods that [...] You pa (more content not included)... Normal [facility] Urology Office/Clinic Noteon 04-16-2023 Urology Office/Clinic [...] inflamed The Urethra was dilated to: 20-30 [place] with sounds. Specimens Removed: None Postoperative Information [...] given today. Follow-up With When Contact Information Ihsan BROWN MD, URL In 4 months [facility] [address], [place] [address]- Additional Instructions: w/UD Patient Education Urethral Dilation [...] Procedure/Surgical Histo (more content not included)... Normal [facility] Comment on above: Result Comment: Elec tronically Signed By: Ihsan BROWN MD\.br\Date and Time Signed: 04/16/23 15:14 EDT\.br\Electronically Co-Signed By: Sargent, Jillian E\.br\Date and Time Co-Signed: 04/16/23 15:[address] [...] by: MIGUE REYNOSO Date: 2022-10-31 17:34 Normal [facility] HEMOGLOBINon 10-31-2022 Hemoglobin (Bld) [Mass/Vol] 11.8 g/dL Critically low 12.0-16.0 [facility] Comment on above: Performed By: #### C VDTB #### [facility] [address] [address] [address] Kayley Hatfield BUNon 10-10-2022 Urea nitrogen [Mass/Vol] 13.0 mg/dL Normal 7.0-18.0 [facility] Comment on above: Performed By: #### L #### [facility] [address] [address] [address] Kayley Hatfield CALCIUMon 10-10-2022 Calcium [Mass/Vol] 9.7 mg/dL Normal 8.5-10.1 [facility] Comment on above: Performed By: #### L DH #### [facility] [address] [place] [address] Dr. Kayley Hatfield CREATININEon 10-10-2022 Creatinine [Mass/Vol] 1.19 mg/dL Critically high 0.55-1.02 [facility] Comment on above: Performed By: #### L DH #### [facility] [address] [place] [address] Dr. Kayley Hatfield EGFR-AF GREEK 55 mL/min/1.73m2 Critically low >=60 [facility] Comment on above: Performed By: #### L DH #### [facility] [address] [place] [address] Dr. Kayley Hatfield EGFR-NON AF GREEK 46 mL/min/1.73m2 Critically low >=60 [facility] Comment on above: Performed By: #### L DH #### [facility] [address] [place] [address] Dr. Kayley Hatfield CRPon 10-10-2022 CRP [Mass/Vol] mg/L Normal <=1.0 [facility] Comment on above: Performed By: #### L DH #### [facility] [address] [place] [address] Dr. Kayley Hatfield MAGNESIUMon 10-10-2022 Magnesium [Mass/Vol] 1.7 mg/dL Critically low 1.8-2.4 [facility] Comment on above: Performed By: #### L DH #### [facility] [address] [place] [address] Dr. Kayley Hatfield PHOSPHORUSon 10-10-2022 Phosphate [Mass/Vol] 4.0 mg/dL Normal 2.6-4.7 [facility] Comment on above: Performed By: #### L DH #### [facility] [address] [place] [address] Dr. Kayley Hatfield SED RATE FIRESTONEERGRENon 2022 SED RATE 25 mm/hr Normal <=30 [facility] Comment on above: Performed By: #### P RTELEC #### [facility] [address] [place] [address] Dr. Kayley Hatfield Office Visiton 08-14-2022 Follow-up visit [id number] Covert,Lise Easton 1955 F Date Provider Department Center 08/14/2022 [facility] Family History Problem Relation Age of Onset Stroke Father Stroke Father's Sister Coronary artery disease Paternal Grandmother Family Status - Relation Status Age at Father Father's Sister Paternal Grandmother Level of Service:77252 SC OFFICE/OUTPATIENT ESTABLISHED MOD MDM 30-39 MIN Reason for Visit and Comments: Coronary Artery Disease [187] Hyperlipidemia [182] Normal [facility] CBC AUTO DIFFon 05-01-2022 BASO # 0.1 103/ul Normal 0.0-0.1 [facility] Comment on above: Performed By: #### P RBC #### [facility] [address] [place] [address] Dr. Kayley Hatfield Basophils/100 WBC (Bld) 0.5 % Normal 0.2-2.0 [facility] Comment on above: Performed By: #### P RBC #### [facility] [address] [address] [address] Kayley Hatfield EO # 0.2 103/ul Normal 0.0-0.7 [facility] Comment on above: Performed By: #### P RBC #### [facility] [address] [place] [address] Dr. Kayley Hatfield Eosinophils/100 WBC (Bld) 1.2 % Normal 0.9-7.0 [facility] Comment on above: Performed By: #### P RBC #### [facility] [address] [place] [address] Dr. Kayley Hatfield Erythrocyte distribution width (RBC) [Ratio] 14.9 % Normal 11.0-15.0 [facility] Comment on above: Performed By: #### P RBC #### [facility] [address] [place] [address] Dr. Kayley Hatfield Hematocrit (Bld) [Volume fraction] 34.2 % Critically low 36.0-48.0 [facility] Comment on above: Performed By: #### P RBC #### [facility] [address] [address] [address] Kayley Hatfield Hemoglobin (Bld) [Mass/Vol] 10.3 g/dL Critically low 12.0-16.0 [facility] Comment on above: Performed By: #### P RBC #### [facility] [address] [place] [address] Dr. Kayley Hatfield IG # 0.19 10e3/ul Critically high 0.00-0.03 [facility] Comment on above: Performed By: #### P RBC #### [facility] [address] [place] [address] Dr. Kayley Hatfield IG % 1.3 % Critically high 0.0-0.5 [facility] Comment on above: Performed By: #### P RBC #### [facility] [address] [place] [address] Dr. Kayley Hatfield LYMPH # 1.1 103/ul Critically low 1.2-3.8 [facility] Comment on above: Performed By: #### P RBC #### [facility] [address] [place] [address] Dr. Kayley Hatfield Lymphocytes/100 WBC (Bld) 7.3 % Critically low 20.5-60.0 [facility] Comment on above: Performed By: #### P RBC #### [facility] [address] [place] [address] Dr. Kayley Hatfield MANUAL DIFF REQ NO Normal [facility] Comment on above: Performed By: #### P RBC #### [facility] [address] [place] [address] Dr. Kayley Hatfield MCH (RBC) [Entitic mass] 28.4 pg Normal 26.7-34.0 [facility] Comment on above: Performed By: #### P RBC #### [facility] [address] [place] [address] Dr. Kayley Hatfield MCHC (RBC) [Mass/Vol] 30.1 g/dL Normal 29.9-35.2 [facility] Comment on above: Performed By: #### P RBC #### [facility] [address] [address] [address] Kayley Hatfield MCV (RBC) [Entitic vol] 94.2 fL Normal 81.0-99.0 [facility] Comment on above: Performed By: #### P RBC #### [facility] [address] [address] [address] Kayley Hatfield MONO # 0.6 103/ul Normal 0.3-0.8 [facility] Comment on above: Performed By: #### P RBC #### [facility] [address] [address] [address] Kayley Hatfield Monocytes/100 WBC (Bld) 4.0 % Normal 1.7-12.0 [facility] Comment on above: Performed By: #### P RBC #### [facility] [address] [address] [address] Kayley Hatfield NEUT # 12.5 103/ul Critically high 1.4-6.5 [facility] Comment on above: Performed By: #### P RBC #### [facility] [address] [address] [address] Kayley Hatfield Neutrophils/100 WBC (Bld) 85.7 % Critically high 43.0-75.0 [facility] Comment on above: Performed By: #### P RBC #### [facility] [address] [address] [address] Kayley Hatfield Platelet mean volume (Bld) [Entitic vol] 8.5 fL Critically low 9.5-13.5 [facility] Comment on above: Performed By: #### P RBC #### [facility] [address] [address] [address] Kayley Hatfield PLT 574 103/ul Critically high 150-450 [facility] Comment on above: Performed By: #### P RBC #### [facility] [address] [address] [address] Kayley Hatfield RBC 3.63 106/ul Critically low 4.20-5.40 [facility] Comment on above: Performed By: #### P RBC #### [facility] [address] [address] [address] Kayley Hatfield WBC 14.6 103/ul Critically high 4.0-11.0 [facility] Comment on above: Performed By: #### P RBC #### [facility] [address] [place] [address] Dr. Kayley Hatfield MAGNESIUMon 05-01-2022 Magnesium [Mass/Vol] 2.1 mg/dL Normal 1.8-2.4 [facility] Comment on above: Performed By: #### O BSCRN #### [facility] [address] [address] [address] Kayley Hatfield PROF CHEM 8 (BAS METB)on Anion gap [Moles/Vol] 8.6 mmol/L Normal [facility] Comment on above: Performed By: #### O BSCRN #### [facility] [address] [place] [address] Dr. Kayley Hatfield Calcium [Mass/Vol] 9.0 mg/dL Normal 8.5-10.1 [facility] Comment on above: Performed By: #### O BSCRN #### [facility] [address] [address] [address] Kayley Hatfield Chloride [Moles/Vol] 101 mmol/L Normal 98-107 [facility] Comment on above: Performed By: #### O BSCRN #### [facility] [address] [place] [address] Dr. Kayley Hatfield CO2 [Moles/Vol] 33.0 mmol/L Critically high 21.0-32.0 [facility] Comment on above: Performed By: #### O BSCRN #### [facility] [address] [address] [address] Kayley Hatfield Creatinine [Mass/Vol] 0.94 mg/dL Normal 0.55-1.02 [facility] Comment on above: Performed By: #### O BSCRN #### [facility] [address] [place] [address] Dr. Kayley Hatfield EGFR-AF GREEK >60 Normal >=60 [facility] Comment on above: Performed By: #### O BSCRN #### [facility] [address] [address] [address] Kayley Hatfield EGFR-NON AF GREEK >60 Normal >=60 [facility] Comment on above: Performed By: #### O BSCRN #### [facility] [address] [address] [address] Kayley Hatfield Glucose [Mass/Vol] 143 mg/dL Critically high 74-106 [facility] Comment on above: Performed By: #### O BSCRN #### [facility] [address] [address] [address] Kayley Hatfield Potassium [Moles/Vol] 4.6 mmol/L Normal 3.5-5.1 [facility] Comment on above: Performed By: #### O BSCRN #### [facility] [address] [address] [address] Kayley Hatfield Sodium [Moles/Vol] 138 mmol/L Normal 136-145 [facility] Comment on above: Performed By: #### O BSCRN #### [facility] [address] [address] [address] Kayley Hatfield Urea nitrogen [Mass/Vol] 15.0 mg/dL Normal 7.0-18.0 [facility] Comment on above: Performed By: #### O BSCRN #### [facility] [address] [address] [address] Kayley Hatfield Urea nitrogen/Creatinine [Mass ratio] 16.0 mg/mg Normal [facility] Comment on above: Performed By: #### O BSCRN #### [facility] [address] [address] [address] Kayley Hatfield CBC AUTO DIFFon 04-26-2022 BASO # 0.1 103/ul Normal 0.0-0.1 [facility] Comment on above: Performed By: #### P RBC #### [facility] [address] [address] [address] Kayley Hatfield Basophils/100 WBC (Bld) 0.5 % Normal 0.2-2.0 [facility] Comment on above: Performed By: #### P RBC #### [facility] [address] [address] [address] Kayley Hatfield EO # 0.2 103/ul Normal 0.0-0.7 [facility] Comment on above: Performed By: #### P RBC #### [facility] [address] [address] [address] Kayley Hatfield Eosinophils/100 WBC (Bld) 1.8 % Normal 0.9-7.0 [facility] Comment on above: Performed By: #### P RBC #### [facility] [address] [address] [address] Kayley Hatfield Erythrocyte distribution width (RBC) [Ratio] 14.7 % Normal 11.0-15.0 [facility] Comment on above: Performed By: #### P RBC #### [facility] [address] [address] [address] Kayley Hatfield Hematocrit (Bld) [Volume fraction] 32.0 % Critically low 36.0-48.0 [facility] Comment on above: Performed By: #### P RBC #### [facility] [address] [address] [address] Kayley Hatfield Hemoglobin (Bld) [Mass/Vol] 9.9 g/dL Critically low 12.0-16.0 [facility] Comment on above: Performed By: #### P RBC #### [facility] [address] [address] [address] Kayley Hatfield IG # 0.07 10e3/ul Critically high 0.00-0.03 [facility] Comment on above: Performed By: #### P RBC #### [facility] [address] [address] [address] Kayley Hatfield IG % 0.6 % Critically high 0.0-0.5 [facility] Comment on above: Performed By: #### P RBC #### [facility] [address] [address] [address] Kayley Hatfield LYMPH # 1.2 103/ul Normal 1.2-3.8 [facility] Comment on above: Performed By: #### P RBC #### [facility] [address] [address] [address] Kayley Hatfield Lymphocytes/100 WBC (Bld) 10.9 % Critically low 20.5-60.0 [facility] Comment on above: Performed By: #### P RBC #### [facility] [address] [address] [address] Kayley Hatfield MANUAL DIFF REQ NO Normal [facility] Comment on above: Performed By: #### P RBC #### [facility] [address] [address] [address] Kayley Hatfield MCH (RBC) [Entitic mass] 28.4 pg Normal 26.7-34.0 [facility] Comment on above: Performed By: #### P RBC #### [facility] [address] [place] [address] Dr. Kayley Hatfield MCHC (RBC) [Mass/Vol] 30.9 g/dL Normal 29.9-35.2 [facility] Comment on above: Performed By: #### P RBC #### [facility] [address] [address] [address] Kayley Hatfield MCV (RBC) [Entitic vol] 92.0 fL Normal 81.0-99.0 [facility] Comment on above: Performed By: #### P RBC #### [facility] [address] [place] [address] Dr. Kayley Hatfield MONO # 1.4 103/ul Critically high 0.3-0.8 [facility] Comment on above: Performed By: #### P RBC #### [facility] [address] [place] [address] Dr. Kayley Hatfield Monocytes/100 WBC (Bld) 11.9 % Normal 1.7-12.0 [facility] Comment on above: Performed By: #### P RBC #### [facility] [address] [place] [address] Dr. Kayley Hatfield NEUT # 8.4 103/ul Critically high 1.4-6.5 [facility] Comment on above: Performed By: #### P RBC #### [facility] [address] [address] [address] Kayley Hatfield Neutrophils/100 WBC (Bld) 74.3 % Normal 43.0-75.0 [facility] Comment on above: Performed By: #### P RBC #### [facility] [address] [address] [address] Kayley Hatfield Platelet mean volume (Bld) [Entitic vol] 8.8 fL Critically low 9.5-13.5 [facility] Comment on above: Performed By: #### P RBC #### [facility] [address] [address] [address] Kayley Hatfield PLT 953 103/ul Critically high 150-450 [facility] Comment on above: Performed By: #### P RBC #### [facility] [address] [address] [address] Kayley Hatfield RBC 3.48 106/ul Critically low 4.20-5.40 [facility] Comment on above: Performed By: #### P RBC #### [facility] [address] [address] [address] Kayley Hatfield WBC 11.3 103/ul Critically high 4.0-11.0 [facility] Comment on above: Performed By: #### P RBC #### [facility] [address] [address] [address] Kayley Hatfield POINT OF CARE GLUCOSEon 04-08 Glucose [Mass/Vol] 225 mg/dL Critically high 74-106 [facility] Comment on above: Performed By: #### B [id number] #### [facility] [address] [address] [address] Kayley Hatfield PROF CHEM 8 (BAS METB)on Anion gap [Moles/Vol] 10.7 mmol/L Normal [facility] Comment on above: Performed By: #### P RBC #### [facility] [address] [address] [address] Kayley Hatfield Calcium [Mass/Vol] 9.2 mg/dL Normal 8.5-10.1 [facility] Comment on above: Performed By: #### P RBC #### [facility] [address] [address] [address] Kayley Hatfield Chloride [Moles/Vol] 103 mmol/L Normal 98-107 [facility] Comment on above: Performed By: #### P RBC #### [facility] [address] [address] [address] Kayley Hatfield CO2 [Moles/Vol] 29.2 mmol/L Normal 21.0-32.0 [facility] Comment on above: Performed By: #### P RBC #### [facility] [address] [address] [address] Kayley Hatfield Creatinine [Mass/Vol] 0.85 mg/dL Normal 0.55-1.02 [facility] Comment on above: Performed By: #### P RBC #### [facility] [address] [place] [address] Dr. Kayley Hatfield EGFR-AF GREEK >60 Normal >=60 [facility] Comment on above: Performed By: #### P RBC #### [facility] [address] [address] [address] Kayley Hatfield EGFR-NON AF GREEK >60 Normal >=60 [facility] Comment on above: Performed By: #### P RBC #### [facility] [address] [place] [address] Dr. Kayley Hatfield Glucose [Mass/Vol] 81 mg/dL Normal 74-106 [facility] Comment on above: Performed By: #### P RBC #### [facility] [address] [address] [address] Kayley Hatfield Potassium [Moles/Vol] 3.9 mmol/L Normal 3.5-5.1 [facility] Comment on above: Performed By: #### P RBC #### [facility] [address] [address] [address] Kayley Hatfield Sodium [Moles/Vol] 139 mmol/L Normal 136-145 [facility] Comment on above: Performed By: #### P RBC #### [facility] [address] [address] [address] Kayley Hatfield Urea nitrogen [Mass/Vol] 9.0 mg/dL Normal 7.0-18.0 [facility] Comment on above: Performed By: #### P RBC #### [facility] [address] [address] [address] Kayley Hatfield Urea nitrogen/Creatinine [Mass ratio] 10.6 mg/mg Normal [facility] Comment on above: Performed By: #### P RBC #### [facility] [address] [address] [address] Kayley Hatfield XR CHEST 2 Von [...] MIGUE REYNOSO Date: 2022-04-26 09:59 Normal [facility] BNPon 04-25-2022 Natriuretic peptide B (Bld) [Mass/Vol] 234.0 pg/mL Normal <=900.0 [facility] Comment on above: Performed By: #### P RTELEC #### [facility] [address] [place] [address] Dr. Kayley Hatfield CBC AUTO DIFFon 04-25-2022 BASO # 0.1 103/ul Normal 0.0-0.1 [facility] Comment on above: Performed By: #### P RBC #### [facility] [address] [address] [address] Kayley Hatfield Basophils/100 WBC (Bld) 0.4 % Normal 0.2-2.0 [facility] Comment on above: Performed By: #### P RBC #### [facility] [address] [address] [address] Kayley Hatfield EO # 0.2 103/ul Normal 0.0-0.7 [facility] Comment on above: Performed By: #### P RBC #### [facility] [address] [address] [address] Kayley Hatfield Eosinophils/100 WBC (Bld) 1.0 % Normal 0.9-7.0 [facility] Comment on above: Performed By: #### P RBC #### [facility] [address] [place] [address] Dr. Kayley Hatfield Erythrocyte distribution width (RBC) [Ratio] 14.8 % Normal 11.0-15.0 [facility] Comment on above: Performed By: #### P RBC #### [facility] [address] [address] [address] Kayley Hatfield Hematocrit (Bld) [Volume fraction] 35.4 % Critically low 36.0-48.0 [facility] Comment on above: Performed By: #### P RBC #### [facility] [address] [place] [address] Dr. Kayley Hatfield Hemoglobin (Bld) [Mass/Vol] 10.9 g/dL Critically low 12.0-16.0 [facility] Comment on above: Performed By: #### P RBC #### [facility] [address] [address] [address] Kayley Hatfield IG # 0.08 10e3/ul Critically high 0.00-0.03 [facility] Comment on above: Performed By: #### P RBC #### [facility] [address] [address] [address] Kayley Hatfield IG % 0.5 % Normal 0.0-0.5 [facility] Comment on above: Performed By: #### P RBC #### [facility] [address] [address] [address] Kayley Hatfield LYMPH # 1.2 103/ul Normal 1.2-3.8 [facility] Comment on above: Performed By: #### P RBC #### [facility] [address] [place] [address] Dr. Kayley Hatfield Lymphocytes/100 WBC (Bld) 7.4 % Critically low 20.5-60.0 [facility] Comment on above: Performed By: #### P RBC #### [facility] [address] [place] [address] Dr. Kayley Hatfield MANUAL DIFF REQ NO Normal [facility] Comment on above: Performed By: #### P RBC #### [facility] [address] [place] [address] Dr. Kayley Hatfield MCH (RBC) [Entitic mass] 27.9 pg Normal 26.7-34.0 [facility] Comment on above: Performed By: #### P RBC #### [facility] [address] [place] [address] Dr. Kayley Hatfield MCHC (RBC) [Mass/Vol] 30.8 g/dL Normal 29.9-35.2 [facility] Comment on above: Performed By: #### P RBC #### [facility] [address] [place] [address] Dr. Kayley Hatfield MCV (RBC) [Entitic vol] 90.5 fL Normal 81.0-99.0 [facility] Comment on above: Performed By: #### P RBC #### [facility] [address] [place] [address] Dr. Kayley Hatfield MONO # 1.5 103/ul Critically high 0.3-0.8 [facility] Comment on above: Performed By: #### P RBC #### [facility] [address] [place] [address] Dr. Kyaley Hatfield Monocytes/100 WBC (Bld) 8.7 % Normal 1.7-12.0 [facility] Comment on above: Performed By: #### P RBC #### [facility] [address] [place] [address] Dr. Kayley Hatfield NEUT # 13.8 103/ul Critically high 1.4-6.5 [facility] Comment on above: Performed By: #### P RBC #### [facility] [address] [address] [address] Kayley Hatfield Neutrophils/100 WBC (Bld) 82.0 % Critically high 43.0-75.0 [facility] Comment on above: Performed By: #### P RBC #### [facility] [address] [address] [address] Kayley Hatfield Platelet mean volume (Bld) [Entitic vol] 8.9 fL Critically low 9.5-13.5 [facility] Comment on above: Performed By: #### P RBC #### [facility] [address] [address] [address] Kayley Hatfield PLT 1076 103/ul Critically high 150-450 [facility] Comment on above: Performed By: #### P RBC #### [facility] [address] [address] [address] Kayley Hatfield RBC 3.91 106/ul Critically low 4.20-5.40 [facility] Comment on above: Performed By: #### P RBC #### [facility] [address] [address] [address] Kayley Hatfield WBC 16.8 103/ul Critically high 4.0-11.0 [facility] Comment on above: Performed By: #### P RBC #### [facility] [address] [address] [address] HEAD WO CONon [...] by: MIGUE REYNOSO Date: 2022-04-25 14:59 Normal [facility] CTA CHEST WO W CONon 04-25-2 022 CTA CHEST WO W CON EXAMINATION: [...] MIGUE REYNOSO Date: 2022-04-25 15:18 Normal [facility] Covid-19 PCR (CVDTB)on 04-08 SARS-CoV-2 (COVID-19) RNA ELBA+probe Ql (Unsp spec) Not detected Normal NOT DETECTED [facility] Comment on above: Result Comment: When [...] for this test is supported by the [place] Inspector of Health and Human Service's declaration that [...] used). Performed By: #### C VDTBH #### [facility] [address] [place] [address] Dr. Kayley Hatfield ER URINE PROFILEon 2 Bilirubin Ql (U) Negative Normal NEGATIVE [facility] Comment on above: Performed By: #### C VDTBH #### [facility] [address] [place] [address] Dr. Kayley Hatfield Clarity (U) CLEAR Normal CLEAR [facility] Comment on above: Performed By: #### C VDTBH #### [facility] [address] [place] [address] Dr. Kayley Hatfield Color (U) LT. YELLOW Normal YELLOW [facility] Comment on above: Performed By: #### C VDTBH #### [facility] [address] [place] [address] Dr. Kayley [place] A micrscopic examination will be performed if indicated. Normal [facility] Comment on above: Performed By: #### C VDTBH #### [facility] [address] [place] [address] Dr. Kayley Hatfield Glucose Ql (U) Negative Normal NEGATIVE [facility] Comment on above: Performed By: #### C VDTBH #### [facility] [address] [place] [address] Dr. Kayley Hatfield Hemoglobin Ql (U) TRACE-INTACT Abnormal NEGATIVE [facility] Comment on above: Performed By: #### C VDTBH #### [facility] [address] [place] [address] Dr. Kayley Hatfield Ketones Ql (U) Negative Normal NEGATIVE [facility] Comment on above: Performed By: #### C VDTBH #### [facility] [address] [place] [address] Dr. Kayley Hatfield LEUKOCYTES Negative Normal NEGATIVE [facility] Comment on above: Performed By: #### C VDTBH #### [facility] [address] [place] [address] Dr. Kayley Hatfield Nitrite Ql (U) Negative Normal NEGATIVE [facility] Comment on above: Performed By: #### C VDTBH #### [facility] [address] [place] [address] Dr. Kayley Hatfield pH (U) 8.0 [pH] Normal 5-9 [facility] Comment on above: Performed By: #### C VDTBH #### [facility] [address] [place] [address] Dr. Kayley Hatfield SPEC GRAVITY 1.010 Normal 1.005-<=1.025 [facility] Comment on above: Performed By: #### C VDTBH #### [facility] [address] [place] [address] Dr. Kayley Hatfield UA PROTEIN Negative Normal NEGATIVE/ TRACE [facility] Comment on above: Performed By: #### C VDTBH #### [facility] [address] [place] [address] Dr. Kayley Hatfield UR MICRO IND INDICATED Normal [facility] Comment on above: Performed By: #### C VDTBH #### [facility] [address] [place] [address] Dr. Kayley Hatfield Urobilinogen Qn (U) 0.2 {Lu'U}/dL Normal 0.2 - 1. 0 [facility] Comment on above: Performed By: #### C VDTBH #### [facility] [address] [place] [address] Dr. Kayley Hatfield LACTATE/LACTIC ACIDon 2021 Lactate [Moles/Vol] 1.1 mmol/L Normal 0.4-1.9 [facility] Comment on above: Performed By: #### P RTELEC #### [facility] [address] [place] [address] Dr. Kayley Hatfield PH VENOUS BLOODon 04-25-2022 PCO2 VENOUS 54.5 mmHg Critically high 40.0-52.0 [facility] Comment on above: Performed By: #### L DH #### [facility] [address] [place] [address] Dr. Kayley Hatfield pH VENOUS 7.385 Normal 7.330-7.430 [facility] Comment on above: Performed By: #### L DH #### [facility] [address] [place] [address] Dr. Kayley Hatfield POINT OF CARE GLUCOSEon 04-08 Glucose [Mass/Vol] 91 mg/dL Normal 74-106 [facility] Comment on above: Performed By: #### O BSCRN #### [facility] [address] [place] [address] Dr. Kayley Hatfield Glucose [Mass/Vol] 116 mg/dL Critically high 74-106 [facility] Comment on above: Performed By: #### O BSCRN #### [facility] [address] [address] [address] Kayley Hatfield PROF 14(COMP METB)on 04-25- 022 Albumin [Mass/Vol] 2.7 g/dL Critically low 3.4-5.0 [facility] Comment on above: Performed By: #### O BSCRN #### [facility] [address] [address] [address] Kayley Hatfield Albumin/Globulin [Mass ratio] 0.6 {ratio} Normal [facility] Comment on above: Performed By: #### O BSCRN #### [facility] [address] [address] [address] Kayley Hatfield ALP [Catalytic activity/Vol] 132 U/L Critically high 46-116 [facility] Comment on above: Performed By: #### O BSCRN #### [facility] [address] [place] [address] Dr. Kayley Hatfield ALT [Catalytic activity/Vol] 21 U/L Normal 14-59 [facility] Comment on above: Performed By: #### O BSCRN #### [facility] [address] [address] [address] Kayley Hatfield Anion gap [Moles/Vol] 8.1 mmol/L Normal [facility] Comment on above: Performed By: #### O BSCRN #### [facility] [address] [place] [address] Dr. Kayley Hatfield AST [Catalytic activity/Vol] 23 U/L Normal 15-37 [facility] Comment on above: Performed By: #### O BSCRN #### [facility] [address] [address] [address] Kayley Hatfield Bilirubin [Mass/Vol] 0.3 mg/dL Normal 0.2-1.0 [facility] Comment on above: Performed By: #### O BSCRN #### [facility] [address] [address] [address] Kayley Hatfield Calcium [Mass/Vol] 9.4 mg/dL Normal 8.5-10.1 [facility] Comment on above: Performed By: #### O BSCRN #### [facility] [address] [address] [address] Kayley [place] Chloride [Moles/Vol] 100 mmol/L Normal 98-107 [facility] Comment on above: Performed By: #### O BSCRN #### [facility] [address] [address] [address] Kayley [place] CO2 [Moles/Vol] 31.8 mmol/L Normal 21.0-32.0 [facility] Comment on above: Performed By: #### O BSCRN #### [facility] [address] [address] [address] Kayley [place] Creatinine [Mass/Vol] 0.79 mg/dL Normal 0.55-1.02 [facility] Comment on above: Performed By: #### O BSCRN #### [facility] [address] [place] [address] Dr. Kayley [place] EGFR-AF GREEK >60 Normal >=60 [facility] Comment on above: Performed By: #### O BSCRN #### [facility] [address] [place] [address] Dr. Kayley [place] EGFR-NON AF GREEK >60 Normal >=60 [facility] Comment on above: Performed By: #### O BSCRN #### [facility] [address] [place] [address] Dr. Kayley [place] Globulin (S) [Mass/Vol] 4.2 g/dL Normal [facility] Comment on above: Performed By: #### O BSCRN #### [facility] [address] [place] [address] Dr. Kayley [place] Glucose [Mass/Vol] 134 mg/dL Critically high 74-106 [facility] Comment on above: Performed By: #### O BSCRN #### [facility] [address] [place] [address] Dr. Kayley [place] Potassium [Moles/Vol] 3.9 mmol/L Normal 3.5-5.1 [facility] Comment on above: Performed By: #### O BSCRN #### [facility] [address] [place] [address] Dr. Kayley [place] Protein [Mass/Vol] 6.9 g/dL Normal 6.4-8.2 [facility] Comment on above: Performed By: #### O BSCRN #### [facility] [address] [address] [address] Kayley [place] Sodium [Moles/Vol] 136 mmol/L Normal 136-145 [facility] Comment on above: Performed By: #### O BSCRN #### [facility] [address] [place] [address] Dr. Kayley [place] Urea nitrogen [Mass/Vol] 10.0 mg/dL Normal 7.0-18.0 [facility] Comment on above: Performed By: #### O BSCRN #### [facility] [address] [place] [address] Dr. Kayley [place] Urea nitrogen/Creatinine [Mass ratio] 12.7 mg/mg Normal [facility] Comment on above: Performed By: #### O BSCRN #### [facility] [address] [place] [address] Dr. Kayley [place] PROTIMEon 04-25-2022 INR Coag (PPP) [Relative time] 1.08 {INR} Normal [facility] Comment on above: Performed By: #### P RTELEC #### [facility] [address] [place] [address] Dr. Kayley [place] INR GUIDELINES SEE BELOW Normal [facility] Comment on above: Result Comment: JOAQUIM RED INR: 2.0 - 3.0 CONDITIONS NOT LISTED BELOW 2.5 - 3.5 FOR PROSTHETIC HEART VALVE REPLACEMENT 2.5 - 3.5 RECURRENT THROMBOSIS Performed By: #### P RTELEC #### [facility] [address] [place] [address] Dr. Kayley [place] PT Coag (PPP) [Time] 11.6 s Normal 9.0-11.6 [facility] Comment on above: Performed By: #### P RTELEC #### [facility] [address] [place] [address] Dr. Kayley [place] PTTon 04-25-2022 aPTT Coag (Bld) [Time] 31.1 s Normal 22.3-36.2 [facility] Comment on above: Performed By: #### P RTELEC #### [facility] [address] [place] [address] Dr. Kayley [place] TROPONIN, HIGH SENSITIVITYon 04-25-2022 HSTROP 9.6 pg/mL Normal 4.0-51.3 [facility] Comment on above: Result Comment: CUT- OFF POINTS HAVE BEEN ESTABLISHED BASED ON THE FOURTH UNIVERSAL DEFINITIONS OF MYOCARDIAL INFARCTION. THE UPPER REFERENCE LIMIT (URL) OF TROPONIN, DEFINED THE 99TH PERCENTILE OF cTnI DISTRIBUTION IN A REFERENCE POPULATION, HAS BEEN CONFIRMED THE DECISION THRESHOLD FOR NM DIAGNOSIS. Performed By: #### P RTELEC #### [facility] [address] [place] [address] Dr. Kayley [place] TSHon 04-25-2022 TSH 1.431 uIU/mL Normal 0.358-3.[address] [facility] Comment on above: Performed By: #### P RTELEC #### [facility] [address] [place] [address] Dr. Kayley [place] URINE MICROSCOPIC ONLYon BACTERIA NONE SEEN Normal NONE SEEN [facility] Comment on above: Performed By: #### C VDTBH #### [facility] [address] [place] [address] Dr. Kayley [place] Bacteria identified Cx Nom (U) NOT INDICATED Normal [facility] Comment on above: Performed By: #### C VDTBH #### [facility] [address] [place] [address] Dr. Kayley [place] CAST NONE SEEN Normal NONE SEEN [facility] Comment on above: Performed By: #### C VDTBH #### [facility] [address] [place] [address] Dr. Kayley [place] Crystals LM Nom (Urine sed) NONE SEEN Normal NONE SEEN [facility] Comment on above: Performed By: #### C VDTBH #### [facility] [address] [place] [address] Dr. Kayley [place] Epithelial cells LM Ql (Urine sed) FEW Abnormal NONE SEEN /RARE [facility] Comment on above: Performed By: #### C VDTBH #### [facility] [address] [place] [address] Dr. Kayley [place] MUCOUS NONE SEEN Normal NONE SEEN [facility] Comment on above: Performed By: #### C VDTBH #### [facility] [address] [place] [address] Dr. Kayley [place] RBC 2-5 Abnormal 0-2 [facility] Comment on above: Performed By: #### C VDTBH #### [facility] [address] [place] [address] Dr. Kayley [place] WBC NONE SEEN Normal NONE SEEN [facility] Comment on above: Performed By: #### C VDTBH #### [facility] [address] [place] [address] Dr. Kayley [place] IMMUNOFIXATION(KENNETH),PROTEIN ELEC(PE),[facility] 03-31-2022 Albumin [Mass/Vol] 3.6 g/dL Normal 2.9-4.4 [facility] Comment on above: Performed By: #### B LDCX1 #### [facility] [address] [place] [address] Dr. Kayley [place] Albumin/Globulin [Mass ratio] 1.6 {ratio} Normal 0.7-1.7 [facility] Comment on above: Performed By: #### B LDCX1 #### [facility] [address] [place] [address] Dr. Kayley [place] Udjwt-1-Ltuqckte 0.3 g/dL Normal 0.0-0.4 [facility] Comment on above: Performed By: #### B LDCX1 #### [facility] [address] [place] [address] Dr. Kayley [place] Bbkpr-2-Davnjcle 0.8 g/dL Normal 0.4-1.0 [facility] Comment on above: Performed By: #### B LDCX1 #### [facility] [address] [place] [address] Dr. Kayley [place] Beta Globulin 1.0 g/dL Normal 0.7-1.[address] [facility] Comment on above: Performed By: #### B LDCX1 #### [facility] [address] [place] [address] Dr. Kayley [place] Free [place] Lt Chains,S 16.0 mg/L Normal 3.3-19.4 [facility] Comment on above: Performed By: #### B LDCX1 #### [facility] [address] [place] [address] Dr. Kayley [place] Free Lambda Lt Chains,S 10.1 mg/L Normal 5.7-26.3 [facility] Comment on above: Performed By: #### B LDCX1 #### [facility] [address] [place] [address] Dr. Kayley [place] Gamma Globulin 0.4 g/dL Normal 0.4-1.8 [facility] Comment on above: Performed By: #### B LDCX1 #### [facility] [address] [place] [address] Dr. Kayley [place] Globulin (S) [Mass/Vol] 2.4 g/dL Normal 2.2-3.9 [facility] Comment on above: Performed By: #### B LDCX1 #### [facility] [address] [place] [address] Dr. Kayley [place] Immunofixation Result, Serum Comment Normal [facility] Comment on above: Result Comment: No m onoclonality detected. Performed By: #### B LDCX1 #### [facility] [address] [place] [address] Dr. Kayley [place] Immunoglobulin A, Qn, Serum 128 mg/dL Normal 87-352 [facility] Comment on above: Performed By: #### B LDCX1 #### [facility] [address] [place] [address] Dr. Kayley [place] Immunoglobulin G, Qn, Serum 487 mg/dL Critically low 586-1602 [facility] Comment on above: Performed By: #### B LDCX1 #### [facility] [address] [place] [address] Dr. Kayley [place] Immunoglobulin M, Qn, Serum 38 mg/dL Normal 26-217 [facility] Comment on above: Performed By: #### B LDCX1 #### [facility] [address] [place] [address] Dr. Kayley [place]/Lambda Ratio, S 1.58 Normal 0.26-1.65 [facility] Comment on above: Performed By: #### B LDCX1 #### [facility] [address] [place] [address] Dr. Kayley [place] M-Sandip Not Observed Normal Not Observed [facility] Comment on above: Performed By: #### B LDCX1 #### [facility] [address] [place] [address] Dr. Kayley [place] PDF . Normal [facility] Comment on above: Performed By: #### B LDCX1 #### [facility] [address] [place] [address] Dr. Kayley [place] Please note: Comment Normal [facility] Comment on above: Result Comment: Prot ein electrophoresis scan will follow via computer, mail, or junior recruiter delivery. Performed By: #### B LDCX1 #### [facility] [address] [place] [address] Dr. Kayley [place] Protein [Mass/Vol] 6.0 g/dL Normal 6.0-8.5 [facility] Comment on above: Performed By: #### B LDCX1 #### [facility] [address] [place] [address] Dr. Kayley [place] CBC AUTO DIFFon 03-30-2022 BASO # 0.1 103/ul Normal 0.0-0.1 [facility] Comment on above: Performed By: #### P RBC #### [facility] [address] [place] [address] Dr. Kayley [place] Basophils/100 WBC (Bld) 0.4 % Normal 0.2-2.0 [facility] Comment on above: Performed By: #### P RBC #### [facility] [address] [place] [address] Dr. Kayley [place] EO # 0.2 103/ul Normal 0.0-0.7 [facility] Comment on above: Performed By: #### P RBC #### [facility] [address] [place] [address] Dr. Kayley [place] Eosinophils/100 WBC (Bld) 1.1 % Normal 0.9-7.0 [facility] Comment on above: Performed By: #### P RBC #### [facility] [address] [place] [address] Dr. Kayley [place] Erythrocyte distribution width (RBC) [Ratio] 0.0 % Critically low 11.0-15.0 [facility] Comment on above: Performed By: #### P RBC #### [facility] [address] [place] [address] Dr. Kayley [place] Hematocrit (Bld) [Volume fraction] 24.0 % Critically low 36.0-48.0 [facility] Comment on above: Performed By: #### P RBC #### [facility] [address] [place] [address] Dr. Kayley [place] Hemoglobin (Bld) [Mass/Vol] 7.2 g/dL Critically low 12.0-16.0 [facility] Comment on above: Performed By: #### P RBC #### [facility] [address] [place] [address] Dr. Kayley [place] IG # 0.10 10e3/ul Critically high 0.00-0.03 [facility] Comment on above: Performed By: #### P RBC #### [facility] [address] [place] [address] Dr. Kayley [place] IG % 0.6 % Critically high 0.0-0.5 [facility] Comment on above: Performed By: #### P RBC #### [facility] [address] [place] [address] Dr. Kayley [place] LYMPH # 1.5 103/ul Normal 1.2-3.8 [facility] Comment on above: Performed By: #### P RBC #### [facility] [address] [place] [address] Dr. Kayley [place] Lymphocytes/100 WBC (Bld) 9.0 % Critically low 20.5-60.0 [facility] Comment on above: Performed By: #### P RBC #### [facility] [address] [place] [address] Dr. Kayley [place] MANUAL DIFF REQ NO Normal [facility] Comment on above: Performed By: #### P RBC #### [facility] [address] [place] [address] Dr. Kayley [place] MCH (RBC) [Entitic mass] 27.3 pg Normal 26.7-34.0 [facility] Comment on above: Performed By: #### P RBC #### [facility] [address] [place] [address] Dr. Kayley [place] MCHC (RBC) [Mass/Vol] 30.0 g/dL Normal 29.9-35.2 [facility] Comment on above: Performed By: #### P RBC #### [facility] [address] [place] [address] Dr. Kayley [place] MCV (RBC) [Entitic vol] 90.9 fL Normal 81.0-99.0 [facility] Comment on above: Performed By: #### P RBC #### [facility] [address] [place] [address] Dr. Kayley [place] MONO # 2.3 103/ul Critically high 0.3-0.8 [facility] Comment on above: Performed By: #### P RBC #### [facility] [address] [place] [address] Dr. Kayley [place] Monocytes/100 WBC (Bld) 13.8 % Critically high 1.7-12.0 [facility] Comment on above: Performed By: #### P RBC #### [facility] [address] [place] [address] Dr. Kayley [place] NEUT # 12.7 103/ul Critically high 1.4-6.5 [facility] Comment on above: Performed By: #### P RBC #### [facility] [address] [place] [address] Dr. Kayley [place] Neutrophils/100 WBC (Bld) 75.1 % Critically high 43.0-75.0 [facility] Comment on above: Performed By: #### P RBC #### [facility] [address] [place] [address] Dr. Kayley [place] Platelet mean volume (Bld) [Entitic vol] 8.9 fL Critically low 9.5-13.5 [facility] Comment on above: Performed By: #### P RBC #### [facility] [address] [place] [address] Dr. Kayley [place] PLT 782 103/ul Critically high 150-450 [facility] Comment on above: Performed By: #### P RBC #### [facility] [address] [place] [address] Dr. Kayley [place] RBC 2.64 106/ul Critically low 4.20-5.40 [facility] Comment on above: Performed By: #### P RBC #### [facility] [address] [place] [address] Dr. Kayley [place] WBC 16.9 103/ul Critically high 4.0-11.0 [facility] Comment on above: Performed By: #### P RBC #### [facility] [address] [place] [address] Dr. Kayley [place] PRBC LEUKOREDUCEDon 03-30-20 ABO and Rh group Nom (Bld) Cross Match Result Compatible Unit Blood Type O Pos Unit Number [id number] Status Information Transfused Product ID Red Blood Cells Product Code [id number] Cross Match Result Compatible Unit Blood Type O Pos Unit Number [id number] Status Information Transfused Product ID Red Blood Cells Product Code [id number] Normal [facility] Comment on above: Performed By: #### P RBC #### [facility] [address] [place] [address] Dr. Kayley [place]field PROF CHEM 8 (BAS METB)on Anion gap [Moles/Vol] 6.9 mmol/L Normal [facility] Comment on above: Performed By: #### P RBC #### [facility] [address] [place] [address] Dr. Kayley [place] Calcium [Mass/Vol] 8.7 mg/dL Normal 8.5-10.1 [facility] Comment on above: Performed By: #### P RBC #### [facility] [address] [address] [address] Kayley [place] Chloride [Moles/Vol] 101 mmol/L Normal 98-107 [facility] Comment on above: Performed By: #### P RBC #### [facility] [address] [address] [address] Kayley [place] CO2 [Moles/Vol] 33.3 mmol/L Critically high 21.0-32.0 [facility] Comment on above: Performed By: #### P RBC #### [facility] [address] [place] [address] Dr. Kayley [place] Creatinine [Mass/Vol] 0.83 mg/dL Normal 0.55-1.02 [facility] Comment on above: Performed By: #### P RBC #### [facility] [address] [address] [address] Kayley [place] EGFR-AF GREEK >60 Normal >=60 [facility] Comment on above: Performed By: #### P RBC #### [facility] [address] [place] [address] Dr. Kayley [place]field EGFR-NON AF GREEK >60 Normal >=60 [facility] Comment on above: Performed By: #### P RBC #### [facility] [address] [place] [address] Dr. Kayley [place] Glucose [Mass/Vol] 94 mg/dL Normal 74-106 [facility] Comment on above: Performed By: #### P RBC #### [facility] [address] [address] [address] Kayley [place] Potassium [Moles/Vol] 4.2 mmol/L Normal 3.5-5.1 [facility] Comment on above: Performed By: #### P RBC #### [facility] [address] [place] [address] Dr. Kayley [place] Sodium [Moles/Vol] 137 mmol/L Normal 136-145 [facility] Comment on above: Performed By: #### P RBC #### [facility] [address] [place] [address] Dr. Kayley Hatfield Urea nitrogen [Mass/Vol] 15.0 mg/dL Normal 7.0-18.0 [facility] Comment on above: Performed By: #### P RBC #### [facility] [address] [place] [address] Dr. Kayley [place] Urea nitrogen/Creatinine [Mass ratio] 18.1 mg/mg Normal [facility] Comment on above: Performed By: #### P RBC #### [facility] [address] [place] [address] Dr. Kayley [place]field PROTEIN ELECTROPHERESISon Albumin [Mass/Vol] 3.4 g/dL Normal 2.9-4.4 [facility] Comment on above: Performed By: #### P RTELEC #### [facility] [address] [place] [address] Dr. Kayley [place] Albumin/Globulin [Mass ratio] 1.3 {ratio} Normal 0.7-1.7 [facility] Comment on above: Performed By: #### P RTELEC #### [facility] [address] [place] [address] Dr. Kayley [place] Nyrsq-4-Gsghtskf 0.3 g/dL Normal 0.0-0.4 [facility] Comment on above: Performed By: #### P RTELEC #### [facility] [address] [place] [address] Dr. Kayley Hatfield Tdiqt-3-Ahpjfzdm 0.8 g/dL Normal 0.4-1.0 [facility] Comment on above: Performed By: #### P RTELEC #### [facility] [address] [place] [address] Dr. Kayley Hatfield Beta Globulin 1.0 g/dL Normal 0.7-1.[address] [facility] Comment on above: Performed By: #### P RTELEC #### [facility] [address] [place] [address] Dr. Kayley Hatfield Gamma Globulin 0.5 g/dL Normal 0.4-1.8 [facility] Comment on above: Performed By: #### P RTELEC #### [facility] [address] [address] [address] Kayley Hatfield Globulin (S) [Mass/Vol] 2.6 g/dL Normal 2.2-3.9 [facility] Comment on above: Performed By: #### P RTELEC #### [facility] [address] [place] [address] Dr. Kayley Hatfield M-Sandip Not Observed Normal Not Observed [facility] Comment on above: Performed By: #### P RTELEC #### [facility] [address] [place] [address] Dr. Kayley Hatfield PDF . Normal [facility] Comment on above: Performed By: #### P RTELEC #### [facility] [address] [place] [address] Dr. Kayley Hatfield Please note: Comment Normal [facility] Comment on above: Result Comment: Prot ein electrophoresis scan will follow via computer, mail, or junior recruiter delivery. Performed By: #### P RTELEC #### [facility] [address] [place] [address] Dr. Kayley [place]field Protein [Mass/Vol] 6.0 g/dL Normal 6.0-8.5 [facility] Comment on above: Performed By: #### P RTELEC #### [facility] [address] [place] [address] Dr. Kayley Hatfield XR CHEST 1 Von [...] TYSHAWN MOORE Date: 2022-03-30 06:17 Normal [facility] CBC W MANUAL DIFFon 03-29-20 22 ANISOCYTOSIS 2+ Normal [facility] Comment on above: Performed By: #### C VDTBH #### [facility] [address] [address] [address] Kayley [place] ATYPICAL LYMPH # Normal [facility] Comment on above: Performed By: #### C VDTBH #### [facility] [address] [place] [address] Dr. Kayley Hatfield ATYPICAL LYMPH % Normal [facility] Comment on above: Performed By: #### C VDTBH #### [facility] [address] [address] [address] Kayley Hatfield BAND # 0.0 103/ul Normal 0.0-0.3 [facility] Comment on above: Performed By: #### C VDTBH #### [facility] [address] [address] [address] Kayley Hatfield BAND % 0 % Normal 0-5 [facility] Comment on above: Performed By: #### C VDTBH #### [facility] [address] [place] [address] Dr. Kayley Hatfield BASOM # 0.59 103/ul Critically high 0.00-0.10 [facility] Comment on above: Performed By: #### C VDTBH #### [facility] [address] [address] [address] Kayley Hatfield BASOM % 3.0 % Critically high 0.2-2.0 [facility] Comment on above: Performed By: #### C VDTBH #### [facility] [address] [place] [address] Dr. Kayley Hatfield BLAST # Normal [facility] Comment on above: Performed By: #### C VDTBH #### [facility] [address] [place] [address] Dr. Kayley Hatfield BLAST % Normal [facility] Comment on above: Performed By: #### C VDTBH #### [facility] [address] [place] [address] Dr. Kayley Hatfield CORRECTED WBC Normal 4.0-11.0 [facility] Comment on above: Performed By: #### C VDTBH #### [facility] [address] [place] [address] Dr. Kayley Hatfield EOS # 0.40 103/ul Normal 0.00-0.70 [facility] Comment on above: Performed By: #### C VDTBH #### [facility] [address] [place] [address] Dr. Kayley Hatfield EOS% 2.0 % Normal 0.9-7.0 [facility] Comment on above: Performed By: #### C VDTBH #### [facility] [address] [place] [address] Dr. Kayley Hatfield HCT 31.1 % Critically low 36.0-48.0 [facility] Comment on above: Performed By: #### C VDTBH #### [facility] [address] [place] [address] Dr. Kayley Hatfield HGB 9.7 g/dl Critically low 12.0-16.0 [facility] Comment on above: Performed By: #### C VDTBH #### [facility] [address] [place] [address] Dr. Kayley Hatfield HYPOCHROMASIA 1+ Normal [facility] Comment on above: Performed By: #### C VDTBH #### [facility] [address] [place] [address] Dr. Kayley Hatfield LYMPHM # 4.75 103/ul Critically high 1.20-3.80 [facility] Comment on above: Performed By: #### C VDTBH #### [facility] [address] [place] [address] Dr. Kayley Hatfield LYMPHM% 24.0 % Normal 20.5-60.0 [facility] Comment on above: Performed By: #### C VDTBH #### [facility] [address] [place] [address] Dr. Kayley Hatfield MCH 27.0 pg Normal 26.7-34.0 [facility] Comment on above: Performed By: #### C VDTBH #### [facility] [address] [place] [address] Dr. Kayley Hatfield MCHC 31.2 g/dl Normal 29.9-35.2 [facility] Comment on above: Performed By: #### C VDTBH #### [facility] [address] [place] [address] Dr. Kayley Hatfield MCV 86.6 fL Normal 81.0-99.0 [facility] Comment on above: Performed By: #### C VDTBH #### [facility] [address] [place] [address] Dr. Kayley Hatfield METAMYELOCYTE # Normal [facility] Comment on above: Performed By: #### C VDTBH #### [facility] [address] [place] [address] Dr. Kayley Hatfield METAMYELOCYTE % Normal [facility] Comment on above: Performed By: #### C VDTBH #### [facility] [address] [place] [address] Dr. Kayley Hatfield MONOM# 0.59 103/ul Normal 0.30-0.80 [facility] Comment on above: Performed By: #### C VDTBH #### [facility] [address] [place] [address] Dr. Kayley Hatfield MONOM% 3.0 % Normal 1.7-12.0 [facility] Comment on above: Performed By: #### C VDTBH #### [facility] [address] [place] [address] Dr. Kayley Hatfield MPV 8.4 fL Critically low 9.5-13.5 [facility] Comment on above: Performed By: #### C VDTBH #### [facility] [address] [place] [address] Dr. aKyley Hatfield MYELOCYTE # Normal [facility] Comment on above: Performed By: #### C VDTBH #### [facility] [address] [address] [address] Kayley Hatfield MYELOCYTE % Normal [facility] Comment on above: Performed By: #### C VDTBH #### [facility] [address] [address] [address] Kayley Hatfield NRBC Normal [facility] Comment on above: Performed By: #### C VDTBH #### [facility] [address] [address] [address] Kayley Hatfield OVALOCYTES SLIGHT Normal [facility] Comment on above: Performed By: #### C VDTBH #### [facility] [address] [place] [address] Dr. Kayley Hatfield PLT 950 103/ul Critically high 150-450 [facility] Comment on above: Performed By: #### C VDTBH #### [facility] [address] [address] [address] Kayley Hatfield RBC 3.59 106/ul Critically low 4.20-5.40 [facility] Comment on above: Performed By: #### C VDTBH #### [facility] [address] [place] [address] Dr. Kayley Hatfield RDW 26.6 % Critically high 11.0-15.0 [facility] Comment on above: Performed By: #### C VDTBH #### [facility] [address] [address] [address] Kayley Hatfield SEG # 13.46 103/ul Critically high 1.40-6.50 [facility] Comment on above: Performed By: #### C VDTBH #### [facility] [address] [place] [address] Dr. Kayley Hatfield SEG % 68.0 % Normal 43.0-75.0 [facility] Comment on above: Performed By: #### C VDTBH #### [facility] [address] [address] [address] Kayley Hatfield WBC 19.8 103/ul Critically high 4.0-11.0 [facility] Comment on above: Performed By: #### C VDTB #### [facility] [address] [place] [address] Dr. Kayley Hatfield PROF CHEM 8 (BAS METB)on Anion gap [Moles/Vol] 8.6 mmol/L Normal [facility] Comment on above: Performed By: #### L DH #### [facility] [address] [place] [address] Dr. Kayley Hatfield Calcium [Mass/Vol] 8.9 mg/dL Normal 8.5-10.1 [facility] Comment on above: Performed By: #### L DH #### [facility] [address] [place] [address] Dr. Kayley Hatfield Chloride [Moles/Vol] 102 mmol/L Normal 98-107 [facility] Comment on above: Performed By: #### L DH #### [facility] [address] [place] [address] Dr. Kayley Hatfield CO2 [Moles/Vol] 34.3 mmol/L Critically high 21.0-32.0 [facility] Comment on above: Performed By: #### L DH #### [facility] [address] [place] [address] Dr. Kayley Hatfield Creatinine [Mass/Vol] 0.86 mg/dL Normal 0.55-1.02 [facility] Comment on above: Performed By: #### L DH #### [facility] [address] [place] [address] Dr. Kayley Hatfield EGFR-AF GREEK >60 Normal >=60 [facility] Comment on above: Performed By: #### L DH #### [facility] [address] [place] [address] Dr. Kayley Hatfield EGFR-NON AF GREEK >60 Normal >=60 [facility] Comment on above: Performed By: #### L DH #### [facility] [address] [place] [address] Dr. Kayley Hatfield Glucose [Mass/Vol] 102 mg/dL Normal 74-106 [facility] Comment on above: Performed By: #### L DH #### [facility] [address] [address] [address] Kayley Hatfield Potassium [Moles/Vol] 3.9 mmol/L Normal 3.5-5.1 [facility] Comment on above: Performed By: #### L DH #### [facility] [address] [address] [address] Kayley Hatfield Sodium [Moles/Vol] 141 mmol/L Normal 136-145 [facility] Comment on above: Performed By: #### L DH #### [facility] [address] [address] [address] Kayley Hatfield Urea nitrogen [Mass/Vol] 20.0 mg/dL Critically high 7.0-18.0 [facility] Comment on above: Performed By: #### L DH #### [facility] [address] [address] [address] Kayley Hatfield Urea nitrogen/Creatinine [Mass ratio] 23.3 mg/mg Normal [facility] Comment on above: Performed By: #### L DH #### [facility] [address] [address] [address] Kayley Hatfield XR CHEST 1 Von [...] right chest tube. Electronically authenticated by: MIGUE REYNOOS Date: 2022-03-29 13:26 Normal [facility] XR CHEST 1 V EXAMINATION: XR [...] MIGUE REYNOSO Date: 2022-03-29 11:37 Normal [facility] XR CHEST 1 V EXAMINATION: XR [...] MIGUE REYNOSO Date: 2022-03-29 07:32 Normal [facility] XR CHEST 1 V EXAM: XR [...] ASAEL ANAND Date: 2022-03-28 22:40 Normal [facility] CBC W MANUAL DIFFon 03-28-20 22 ANISOCYTOSIS 3+ Normal [facility] Comment on above: Performed By: #### C BCKATHY #### [facility] [address] [place] [address] Dr. Kayley Hatfield ATYPICAL LYMPH # Normal [facility] Comment on above: Performed By: #### C BCKATHY #### [facility] [address] [place] [address] Dr. Kayley Hatfield ATYPICAL LYMPH % Normal [facility] Comment on above: Performed By: #### C BCMAN #### [facility] [address] [place] [address] Dr. Kayley Hatfield BAND # 0.3 103/ul Normal 0.0-0.3 [facility] Comment on above: Performed By: #### C ALONZO #### [facility] [address] [place] [address] Dr. Kayley Hatfield BAND % 2 % Normal 0-5 [facility] Comment on above: Performed By: #### C ALONZO #### [facility] [address] [place] [address] Dr. Kayley Hatfield BASOM # 0.00 103/ul Normal 0.00-0.10 [facility] Comment on above: Performed By: #### C ALONZO #### [facility] [address] [place] [address] Dr. Kayley Hatfield BASOM % 0.0 % Critically low 0.2-2.0 [facility] Comment on above: Performed By: #### C ALONZO #### [facility] [address] [place] [address] Dr. Kayley Hatfield BLAST # Normal [facility] Comment on above: Performed By: #### C ALONZO #### [facility] [address] [place] [address] Dr. Kayley Hatfield BLAST % Normal [facility] Comment on above: Performed By: #### C ALONZO #### [facility] [address] [place] [address] Dr. Kayley Hatfield CORRECTED WBC Normal 4.0-11.[address] [facility] Comment on above: Performed By: #### C ALONZO #### [facility] [address] [address] [address] Kayley Hatfield EOS # 0.00 103/ul Normal 0.00-0.70 [facility] Comment on above: Performed By: #### C ALONZO #### [facility] [address] [address] [address] Kayley Hatfield EOS% 0.0 % Critically low 0.9-7.0 [facility] Comment on above: Performed By: #### C ALONZO #### [facility] [address] [address] [address] Kayley Hatfield HCT 23.6 % Critically low 36.0-48.0 [facility] Comment on above: Performed By: #### C ALONZO #### [facility] [address] [place] [address] Dr. Kayley Hatfield HGB 6.8 g/dl Critically low 12.0-16.0 [facility] Comment on above: Performed By: #### C ALONZO #### [facility] [address] [address] [address] Kayley Hatfield HYPOCHROMASIA 3+ Normal [facility] Comment on above: Performed By: #### C ALONZO #### [facility] [address] [address] [address] Kayley Hatfield LYMPHM # 1.17 103/ul Critically low 1.20-3.80 [facility] Comment on above: Performed By: #### C ALONZO #### [facility] [address] [address] [address] Kayley Hatfield LYMPHM% 7.0 % Critically low 20.5-60.0 [facility] Comment on above: Performed By: #### C ALONZO #### [facility] [address] [place] [address] Dr. Kayley Hatfield MCH 24.6 pg Critically low 26.7-34.0 [facility] Comment on above: Performed By: #### C ALONZO #### [facility] [address] [address] [address] Kayley Hatfield MCHC 28.8 g/dl Critically low 29.9-35.2 [facility] Comment on above: Performed By: #### C BCKATHY #### [facility] [address] [place] [address] Dr. Kayley Hatfield MCV 85.5 fL Normal 81.0-99.0 [facility] Comment on above: Performed By: #### C BCMAN #### [facility] [address] [address] [address] Kayley Hatfield METAMYELOCYTE # Normal [facility] Comment on above: Performed By: #### C ALONZO #### [facility] [address] [place] [address] Dr. Kayley Hatfield METAMYELOCYTE % Normal [facility] Comment on above: Performed By: #### C ALONZO #### [facility] [address] [place] [address] Dr. Kayley Hatfield MONOM# 0.50 103/ul Normal 0.30-0.80 [facility] Comment on above: Performed By: #### C ALONZO #### [facility] [address] [place] [address] Dr. Kayley Hatfield MONOM% 3.0 % Normal 1.7-12.0 [facility] Comment on above: Performed By: #### C ALONZO #### [facility] [address] [place] [address] Dr. Kayley Hatfield MPV 8.6 fL Critically low 9.5-13.5 [facility] Comment on above: Performed By: #### C ALONZO #### [facility] [address] [place] [address] Dr. Kayley Hatfield MYELOCYTE # Normal [facility] Comment on above: Performed By: #### C ALONZO #### [facility] [address] [place] [address] Dr. Kayley Hatfield MYELOCYTE % Normal [facility] Comment on above: Performed By: #### C ALONZO #### [facility] [address] [place] [address] Dr. Kayley Hatfield NRBC Normal [facility] Comment on above: Performed By: #### C ALONZO #### [facility] [address] [address] [address] Kayley Hatfield OVALOCYTES SLIGHT Normal [facility] Comment on above: Performed By: #### C ALONZO #### [facility] [address] [address] [address] Kayley Hatfield PLT 1384 103/ul Critically high 150-450 [facility] Comment on above: Performed By: #### C ALONZO #### [facility] [address] [address] [address] Kayley Hatfield RBC 2.76 106/ul Critically low 4.20-5.40 [facility] Comment on above: Performed By: #### C ALONZO #### [facility] [address] [address] [address] Kayley Hatfield RDW 0.0 % Critically low 11.0-15.0 [facility] Comment on above: Performed By: #### C ALONZO #### [facility] [address] [address] [address] Kayley Hatfield SEG # 14.70 103/ul Critically high 1.40-6.50 [facility] Comment on above: Performed By: #### C ALONZO #### [facility] [address] [address] [address] Kayley Hatfield SEG % 88.0 % Critically high 43.0-75.0 [facility] Comment on above: Performed By: #### C ALONZO #### [facility] [address] [address] [address] Kayley Hatfield WBC 16.7 103/ul Critically high 4.0-11.0 [facility] Comment on above: Performed By: #### C ALONZO #### [facility] [address] [address] [address] Kayley Hatfield CRPon 03-28-2022 CRP [Mass/Vol] mg/L Normal <=1.0 [facility] Comment on above: Performed By: #### H GBHCT #### [facility] [address] [place] [address] Dr. Kayley Hatfield Covid-19 PCR (CVDTB)on 03-10 SARS-CoV-2 (COVID-19) RNA ELBA+probe Ql (Unsp spec) Not detected Normal NOT DETECTED [facility] Comment on above: Result Comment: When [...] for this test is supported by the [place] [employer]'s declaration that [...] used). Performed By: #### P RBC #### [facility] [address] [place] [address] Dr. Kayley Hatfield ER URINE PROFILEon Bilirubin Ql (U) Negative Normal NEGATIVE [facility] Comment on above: Performed By: #### P RBC #### [facility] [address] [place] [address] Dr. Kayley Hatfield Clarity (U) CLEAR Normal CLEAR [facility] Comment on above: Performed By: #### P RBC #### [facility] [address] [place] [address] Dr. Kayley Hatfield Color (U) LT. YELLOW Normal YELLOW [facility] Comment on above: Performed By: #### P RBC #### [facility] [address] [place] [address] Dr. Kayley Hatfield ERUAHD A micrscopic examination will be performed if indicated. Normal [facility] Comment on above: Performed By: #### P RBC #### [facility] [address] [address] [address] Kayley Hatfield Glucose Ql (U) Negative Normal NEGATIVE [facility] Comment on above: Performed By: #### P RBC #### [facility] [address] [address] [address] Kayley Hatfield Hemoglobin Ql (U) Negative Normal NEGATIVE [facility] Comment on above: Performed By: #### P RBC #### [facility] [address] [address] [address] Kayley Hatfield Ketones Ql (U) Negative Normal NEGATIVE [facility] Comment on above: Performed By: #### P RBC #### [facility] [address] [place] [address] Dr. Kayley Hatfield LEUKOCYTES Negative Normal NEGATIVE [facility] Comment on above: Performed By: #### P RBC #### [facility] [address] [place] [address] Dr. Kayley Hatfield Nitrite Ql (U) Negative Normal NEGATIVE [facility] Comment on above: Performed By: #### P RBC #### [facility] [address] [address] [address] Kayley Hatfield pH (U) 6.0 [pH] Normal 5-9 [facility] Comment on above: Performed By: #### P RBC #### [facility] [address] [place] [address] Dr. Kayley Hatfield SPEC GRAVITY <=1.005 Abnormal 1.005-<=1.025 [facility] Comment on above: Performed By: #### P RBC #### [facility] [address] [place] [address] Dr. Kayley Hatfield UA PROTEIN Negative Normal NEGATIVE/ TRACE [facility] Comment on above: Performed By: #### P RBC #### [facility] [address] [place] [address] Dr. Kayley Hatfield UR MICRO IND NOT INDICATED Normal [facility] Comment on above: Performed By: #### P RBC #### [facility] [address] [place] [address] Dr. Kayley Hatfield Urobilinogen Qn (U) 0.2 {Lu'U}/dL Normal 0.2 - 1. 0 [facility] Comment on above: Performed By: #### P RBC #### [facility] [address] [place] [address] Dr. Kayley Hatfield FERRITINon 03-28-2022 Ferritin [Mass/Vol] 61.0 ng/mL Normal 8.0-252.0 [facility] Comment on above: Performed By: #### P RBC #### [facility] [address] [address] [address] Kayley Hatfiedl GLYCOHEMOGLOBIN A1Con 2021 ADA RECOMMENDATION SEE BELOW Normal [facility] Comment on above: Result Comment: ADA RECOMMENDED LIMIT 4.0 - 6.0 ADA THERAPEUTIC TARGET < 7.0 ACTION SUGGESTED > 7.0 Performed By: #### P RBC #### [facility] [address] [place] [address] Dr. Kayley Hatfield Glucose [Mass/Vol] 114 mg/dL Normal [facility] Comment on above: Performed By: #### P RBC #### [facility] [address] [address] [address] Kayley Hatfield HbA1c (Bld) [Mass fraction] 5.6 % Normal 4.5-6.2 [facility] Comment on above: Performed By: #### P RBC #### [facility] [address] [address] [address] Kayley Hatfield IRONon 03-28-2022 Iron [Mass/Vol] 37.0 ug/dL Critically low 50.0-170.0 [facility] Comment on above: Performed By: #### P RBC #### [facility] [address] [address] [address] Kayley Hatfiedl LDHon 03-28-2022 LDH 174 U/L Normal 81-234 [facility] Comment on above: Performed By: #### L DH #### [facility] [address] [address] [address] Kalyey Hatfield LIPID PROFILEon 03-28-2022 CHOL-HDL RATIO NORM SEE BELOW Normal [facility] Comment on above: Result Comment: 3.3 - 4.4 LOW RISK 4.4 - 7.1 AVERAGE RISK 7.1 - 11.0 MODERATE RISK >11.0 HIGH RISK Performed By: #### P RBC #### [facility] [address] [address] [address] Kayley Hatfield Cholesterol [Mass/Vol] 193 mg/dL Normal <=200 [facility] Comment on above: Performed By: #### P RBC #### [facility] [address] [address] [address] Kayley Hatfield Cholesterol in HDL [Mass/Vol] 95 mg/dL Critically high 40-60 [facility] Comment on above: Performed By: #### P RBC #### [facility] [address] [place] [address] Dr. Kayley Hatfield Cholesterol in LDL [Mass/Vol] 74.8 mg/dL Normal [facility] Comment on above: Performed By: #### P RBC #### [facility] [address] [address] [address] Kayley Hatfield Cholesterol.total/Cho lesterol in HDL [Mass ratio] 2.0 {ratio} Normal [facility] Comment on above: Performed By: #### P RBC #### [facility] [address] [place] [address] Dr. Kayley Hatfield HDL NORMAL > or = 60 mg/dl - LO W CARDIOVASCULAR RISK <40 mg/dl - HIGH CARDIOVASCULAR RISK Normal [facility] Comment on above: Performed By: #### P RBC #### [facility] [address] [address] [address] Kayley Hatfield LDL CALC NORMAL SEE BELOW Normal [facility] Comment on above: Result Comment: <100 mg/dl OPTIMAL 100 - 129 mg/dl NEAR OR ABOVE OPTIMAL 130 - 159 mg/dl BORDERLINE HIGH 160 - 189 mg/dl HIGH >190 mg/dl VERY HIGH Performed By: #### P RBC #### [facility] [address] [place] [address] Dr. Kayley Hatfield Triglyceride [Mass/Vol] 116 mg/dL Normal <=150 [facility] Comment on above: Performed By: #### P RBC #### [facility] [address] [address] [address] Kayley Hatfield VLDL CALC 23.2 mg/dL Normal [facility] Comment on above: Performed By: #### P RBC #### [facility] [address] [address] [address] Kayley Hatfield LIVER PROFILEon 03-28-2022 Albumin [Mass/Vol] 3.2 g/dL Critically low 3.4-5.0 [facility] Comment on above: Performed By: #### P RBC #### [facility] [address] [address] [address] Kayley [place] Albumin/Globulin [Mass ratio] 1.0 {ratio} Normal [facility] Comment on above: Performed By: #### P RBC #### [facility] [address] [place] [address] Dr. Kayley [place] ALP [Catalytic activity/Vol] 56 U/L Normal 46-116 [facility] Comment on above: Performed By: #### P RBC #### [facility] [address] [place] [address] Dr. Kayley [place] ALT [Catalytic activity/Vol] 32 U/L Normal 14-59 [facility] Comment on above: Performed By: #### P RBC #### [facility] [address] [place] [address] Dr. Kayley [place] AST [Catalytic activity/Vol] 18 U/L Normal 15-37 [facility] Comment on above: Performed By: #### P RBC #### [facility] [address] [place] [address] Dr. Kayley [place] BILI, CONJUGATED 0.1 mg/dL Normal 0.0-0.2 [facility] Comment on above: Performed By: #### P RBC #### [facility] [address] [place] [address] Dr. Kayley [place] Bilirubin [Mass/Vol] 0.2 mg/dL Normal 0.2-1.0 [facility] Comment on above: Performed By: #### P RBC #### [facility] [address] [place] [address] Dr. Kayley [place] Globulin (S) [Mass/Vol] 3.1 g/dL Normal [facility] Comment on above: Performed By: #### P RBC #### [facility] [address] [place] [address] Dr. Kayley [place] Protein [Mass/Vol] 6.3 g/dL Critically low 6.4-8.2 [facility] Comment on above: Performed By: #### P RBC #### [facility] [address] [place] [address] Dr. Kayley [place] MAGNESIUMon 03-28-2022 Magnesium [Mass/Vol] 1.8 mg/dL Normal 1.8-2.4 [facility] Comment on above: Performed By: #### H GBHCT #### [facility] [address] [place] [address] Dr. Kayley [place] PHOSPHORUSon 03-28-2022 Phosphate [Mass/Vol] 4.4 mg/dL Normal 2.6-4.7 [facility] Comment on above: Performed By: #### O BSCRN #### [facility] [address] [place] [address] Dr. Kayley [place] PROF CHEM 8 (BAS METB)on Anion gap [Moles/Vol] 10.1 mmol/L Normal [facility] Comment on above: Performed By: #### P RBC #### [facility] [address] [place] [address] Dr. Kayley [place] Calcium [Mass/Vol] 9.1 mg/dL Normal 8.5-10.1 [facility] Comment on above: Performed By: #### P RBC #### [facility] [address] [place] [address] Dr. Kayley [place] Chloride [Moles/Vol] 101 mmol/L Normal 98-107 [facility] Comment on above: Performed By: #### P RBC #### [facility] [address] [place] [address] Dr. Kayley [place] CO2 [Moles/Vol] 32.6 mmol/L Critically high 21.0-32.0 [facility] Comment on above: Performed By: #### P RBC #### [facility] [address] [address] [address] Kayley [place] Creatinine [Mass/Vol] 0.90 mg/dL Normal 0.55-1.02 [facility] Comment on above: Performed By: #### P RBC #### [facility] [address] [address] [address] Kayley [place] EGFR-AF GREEK >60 Normal >=60 [facility] Comment on above: Performed By: #### P RBC #### [facility] [address] [address] [address] Kayley [place] EGFR-NON AF GREEK >60 Normal >=60 [facility] Comment on above: Performed By: #### P RBC #### [facility] [address] [place] [address] Dr. Kayley [place] Glucose [Mass/Vol] 161 mg/dL Critically high 74-106 [facility] Comment on above: Performed By: #### P RBC #### [facility] [address] [address] [address] Kayley [place] Potassium [Moles/Vol] 4.7 mmol/L Normal 3.5-5.1 [facility] Comment on above: Performed By: #### P RBC #### [facility] [address] [place] [address] Dr. Kayley [place] Sodium [Moles/Vol] 139 mmol/L Normal 136-145 [facility] Comment on above: Performed By: #### P RBC #### [facility] [address] [address] [address] Kayley [place] Urea nitrogen [Mass/Vol] 15.0 mg/dL Normal 7.0-18.0 [facility] Comment on above: Performed By: #### P RBC #### [facility] [address] [address] [address] Kayley [place] Urea nitrogen/Creatinine [Mass ratio] 16.7 mg/mg Normal [facility] Comment on above: Performed By: #### P RBC #### [facility] [address] [place] [address] Dr. Kayley [place] RETICULOCYTEon 03-28-2022 RETIC 4.65 % Critically high 0.60-3.10 [facility] Comment on above: Performed By: #### L DH #### [facility] [address] [place] [address] Dr. Kayley [place] SED RATE WESTERGRENon 2021 SED RATE 12 mm/hr Normal <=30 [facility] Comment on above: Performed By: #### P RTELEC #### [facility] [address] [place] [address] Dr. Kayley [place] TSHon 03-28-2022 TSH 0.922 uIU/mL Normal 0.358-3.740 [facility] Comment on above: Performed By: #### P RBC #### [facility] [address] [place] [address] Dr. Kayley [place] TYPE AND SCREENon 03-28-2022 TYPE AND SCREEN Negative Normal [facility] Comment on above: Performed By: #### C VDTBH #### [facility] [address] [place] [address] Dr. Kayley [place] VIT B12 AND FOLATEon 022 Cobalamin (Vitamin B12) [Mass/Vol] 490.0 pg/mL Normal 193.0-986.0 [facility] Comment on above: Performed By: #### L DH #### [facility] [address] [place] [address] Dr. Kayley [place] FOLATE 14.00 ng/mL Normal 8.60-58.90 [facility] Comment on above: Performed By: #### L DH #### [facility] [address] [place] [address] Dr. Kayley [place] VITAMIN D 25 OHon 03-28-2022 VIT D 25-OH 41.5 ng/mL Normal [facility] Comment on above: Performed By: #### O BSCRN #### [facility] [address] [place] [address] Dr. Kayley [place] VIT D RANGES SEE BELOW Normal [facility] Comment on above: Result Comment: <20 ng/mL Vit D deficient 20 - <30 ng/mL Vit D insufficient 30 - 100 ng/mL Vit D sufficient >100 ng/mL Potential Toxicity Performed By: #### O BSCRN #### [facility] [address] [address] [address] Kayley [place] XR CHEST 1 Von [...] STEPHEN ARAIZA Date: 2022-03-28 21:37 Normal [facility] BASIC METABOLIC PANELon 09-0 Calcium [Mass/Vol] 8.9 mg/dL Normal 8.6-10.3 [facility] Comment on above: Order Comment: No: D o not add to previous draw Performed By: #### 3 5200, 80797, 33596, 44382 #### [facility] [address] [place] [address], [facility] Chloride [Moles/Vol] 97 mmol/L Low 98-107 [facility] Comment on above: Order Comment: No: D o not add to previous draw Performed By: #### 3 5200, 93778, 63144, 87614 #### [facility] [address] [place] [address], [facility] CO2 [Moles/Vol] 35 mmol/L High 21-31 [facility] Comment on above: Order Comment: No: D o not add to previous draw Performed By: #### 3 5200, 67936, 11789, 99720 #### [facility] [address] [place] [address], [facility] Creatinine [Mass/Vol] 0.65 mg/dL Normal 0.60-1.20 [facility] Comment on above: Order Comment: No: D o not add to previous draw Performed By: #### 3 5200, 11886, 66056, 50141 #### [facility] [address] [place] [address], [facility] GFR/1.73 sq M.predicted among non-blacks MDRD (S/P/Bld) [Vol rate/Area] mL/min/{1.73_m2} Normal >60 [facility] Comment on above: Order Comment: No: D o not add to previous draw Result Comment: [facility]'s estimated glomerular filtration rate (eGFR) [...] of individuals. Performed By: #### 3 5200, 12203, 97687, 10156 #### [facility] [address] [place] [address], [facility] Glucose [Mass/Vol] 161 mg/dL High 70-100 [facility] Comment on above: Order Comment: No: D o not add to previous draw Performed By: #### 3 5200, 32322, 92244, 96648 #### [facility] [address] [place] [address], [facility] Potassium [Moles/Vol] 3.9 mmol/L Normal 3.5-5.1 [facility] Comment on above: Order Comment: No: D o not add to previous draw Performed By: #### 3 5200, 82641, 42230, 60698 #### [facility] [address] [place] [address], [facility] Sodium [Moles/Vol] 136 mmol/L Normal 136-145 [facility] Comment on above: Order Comment: No: D o not add to previous draw Performed By: #### 3 5200, 17866, 80989, 40121 #### [facility] [address] [place] [address], [facility] Urea nitrogen [Mass/Vol] 16 mg/dL Normal 7-25 [facility] Comment on above: Order Comment: No: D o not add to previous draw Performed By: #### 3 5200, 45036, 41996, 46649 #### [facility] [address] [place] [address], [facility] CBC COMPLETE BLOOD COUNTon 0 03-15-2022 Hematocrit (Bld) [Volume fraction] 28.2 % Low 36.0-45.0 [facility] Comment on above: Order Comment: No: D o not add to previous draw Performed By: #### 3 5200 #### [facility] [address] [place] [id number], [facility] Hemoglobin (Bld) [Mass/Vol] 8.3 g/dL Low 12.0-15.0 [facility] Comment on above: Order Comment: No: D o not add to previous draw Performed By: #### 3 5200 #### [facility] [address] [place] [address], [facility] MCH (RBC) [Entitic mass] 22.9 pg Low 27.0-33.0 [facility] Comment on above: Order Comment: No: D o not add to previous draw Performed By: #### 3 5200 #### [facility] [address] MCHC (RBC) [Mass/Vol] 29.4 g/dL Low 32.0-35.0 [facility] Comment on above: Order Comment: No: D o not add to previous draw Performed By: #### 3 5200 #### [facility] [address] MCV (RBC) [Entitic vol] 77.9 fL Low 82.0-98.0 [facility] Comment on above: Order Comment: No: D o not add to previous draw Performed By: #### 3 5200 #### [facility] [address] Nucleated RBC/100 WBC (Bld) [Ratio] 0 % Normal 0-0 [facility] Comment on above: Order Comment: No: D o not add to previous draw Performed By: #### 3 5200 #### [facility] [address] [facility] [place] [address], [facility] PLAT CNT 221 10*3/uL Normal 150-400 [facility] Comment on above: Order Comment: No: D o not add to previous draw Performed By: #### 3 5200 #### [facility] [address] [facility] [place] [address], [facility] RBC (Bld) [#/Vol] 3.62 10*6/uL Low 3.80-5.00 [facility] Comment on above: Order Comment: No: D o not add to previous draw Performed By: #### 3 5200 #### [facility] [address] [place] [address], [facility] RDW ---- Normal 11.5-15.0 [facility] Comment on above: Order Comment: No: D o not add to previous draw Result Comment: Prev ious RDW was unable to be calculated Performed By: #### 3 5200 #### [facility] [address] [facility] [place] [address], [facility] WBC (Bld) [#/Vol] 11.88 10*3/uL High 4.00-10.60 [facility] Comment on above: Order Comment: No: D o not add to previous draw Performed By: #### 3 5200 #### [facility] [address] [facility] [place] [address], [place] POC GLUCOSE LABon 03-15-2022 Glucose [Mass/Vol] 109 mg/dL High 70-100 [facility] Comment on above: Performed By: #### 8 5499 ####[facility] [facility] [address], [place] POC GLUCOSE LABon 03-14-2022 Glucose [Mass/Vol] 278 mg/dL High 70-100 [facility] Comment on above: Performed By: #### 8 5499 ####[facility] [facility] [address], [place] Glucose [Mass/Vol] 195 mg/dL High 70-100 [facility] Comment on above: Performed By: #### 8 5499 ####[facility] [facility] [address], [place] Glucose [Mass/Vol] 114 mg/dL High 70-100 [facility] Comment on above: Performed By: #### 8 5499 ####[facility] [facility] [place] [address], [place] Glucose [Mass/Vol] 113 mg/dL High 70-100 [facility] Comment on above: Performed By: #### 3 5200 #### [facility] [address] [facility] [place] [address], [place] PORTABLE CHEST 1 VIEWon 090 PORTABLE CHEST 1 VIEW [facility] Department of Radiology [address] [place] [address] Patient Name: LISE CANALES : 1955 Sex: F Age: Race: White Pt. Location: [id number] Patient Status: I Ordered Date: 03/14/2022 2:35:00 [...] chest. Electronically signed: Tyshawn Tapia. Transcribed by: [email or web address], User Resident: Electronically Signed by: TYSHAWN TAPIA @ 03/14/2022 03:31 PM Normal [facility] Comment on above: Order Comment: Check Chest Tube Position, S/P Chest tube DC'd PORTABLE CHEST 1 VIEW [facility] Department of Radiology [address] [place] [address] Patient Name: LISE CANALES : 1955 Sex: F Age: Race: White Pt. Location: [id number] Patient Status: I Ordered Date: 03/14/2022 6:50:00 [...] pneumothorax. Electronically signed: Tyshawn Tapia. Transcribed by: [email or web address], User Resident: Electronically Signed by: TYSHAWN TAPIA @ 03/14/2022 02:56 PM Normal [facility] Comment on above: Order Comment: Check Chest Tube Position, S/P Chest tube DC'd POC GLUCOSE LABon 03-13-2022 Glucose [Mass/Vol] 282 mg/dL High 70-100 [facility] Comment on above: Performed By: #### 8 5499 ####[facility] [place] [address], [facility] Glucose [Mass/Vol] 163 mg/dL High 70-100 [facility] Comment on above: Performed By: #### 8 5499 ####[facility] [place] [address], [facility] Glucose [Mass/Vol] 149 mg/dL High 70-100 [facility] Comment on above: Performed By: #### 3 5200 #### [facility] [address] [place] [address], [facility] Glucose [Mass/Vol] 149 mg/dL High 70-100 [facility] Comment on above: Performed By: #### 8 5499 ####[facility] [place] [address], [facility] PORTABLE CHEST 1 VIEWon PORTABLE CHEST 1 VIEW [facility] Department of Radiology [address] [place] [address] Patient Name: LISE CANALES : 1955 Sex: F Age: Race: White Pt. Location: [id number] Patient Status: I Ordered Date: 03/13/2022 4:15:00 PM Completed Date: 03/13/2022 06:14 PM Requesting Provider: GAVIOTA POLANCO Attending Provider: OLI PINEDA Report Copy To: Signs & Symptoms: O2 Desaturation History: Comments: Check Chest Tube Position, s/p chest tube clamp on 03/13 @ [address] Gillis Exam: PORTABLE CHEST 1 VIEW PORTABLE CHEST 1 VIEW 03/13/2022 6:14 PM CLINICAL INDICATIONS: O2 Desaturation TECHNOLOGIST COMMENTS: Check Chest Tube Position, s/p chest tube clamp QUESTION FOR THE RADIOLOGIST: Check Chest Tube Position, s/p chest tube clamp on 03/13 @ [address] Gillis PROTOCOL: AP(PA) view was [...] morning Electronically signed: Avinash Mckay. Transcribed by: [email or web address], User Resident: Electronically Signed by: AVINASH MCKAY @ 03/13/2022 06:20 PM Normal [facility] Comment on above: Order Comment: Check Chest Tube Position, S/P Chest tube DC'd PORTABLE CHEST 1 VIEW [facility] Department of Radiology [address] [place] [address] Patient Name: LISE CANALES : 1955 Sex: F Age: Race: White Pt. Location: [id number] Patient Status: I Ordered Date: 03/13/2022 6:50:00 AM Completed Date: 03/13/2022 08:22 AM Requesting Provider: GAVIOTA POLANCO Attending Provider: MIRIAM, HANI Report Copy To: Signs & Symptoms: O2 [...] congestion. Electronically signed: Tyshawn Tapia. Transcribed by: [email or web address], User Resident: Electronically Signed by: TYSHAWN TAPIA @ 03/13/2022 08:34 AM Normal [facility] Comment on above: Order Comment: Evalu ate for Aspiration POTASSIUM BLOODon 03-13-2022 Potassium [Moles/Vol] 4.5 mmol/L Normal 3.5-5.1 [facility] Comment on above: Order Comment: No: D o not add to previous draw Performed By: #### 3 5200 #### [facility] [address] BASIC METABOLIC PANELon Calcium [Mass/Vol] 9.4 mg/dL Normal 8.6-10.3 [facility] Comment on above: Order Comment: Check Chest Tube Position, S/P Chest tube DC'd Performed By: #### 0 0071 ####[facility] Chloride [Moles/Vol] 98 mmol/L Normal 98-107 [facility] Comment on above: Order Comment: Check Chest Tube Position, S/P Chest tube DC'd Performed By: #### 0 0071 ####[facility] [facility].[address] CO2 [Moles/Vol] 34 mmol/L High 21-31 [facility] Comment on above: Order Comment: Check Chest Tube Position, S/P Chest tube DC'd Performed By: #### 0 0071 ####[facility] [facility].[address] Creatinine [Mass/Vol] 0.56 mg/dL Low 0.60-1.20 [facility] Comment on above: Order Comment: Check Chest Tube Position, S/P Chest tube DC'd Performed By: #### 0 0071 ####[address] GFR/1.73 sq M.predicted among non-blacks MDRD (S/P/Bld) [Vol rate/Area] mL/min/{1.73_m2} Normal >60 [facility] Comment on above: Order Comment: Check Chest Tube Position, S/P Chest tube DC'd Result Comment: [facility]'s estimated glomerular filtration rate (eGFR) [...] of individuals. Performed By: #### 0 0071 ####[facility] [facility] [place] [address], [facility] Glucose [Mass/Vol] 114 mg/dL High 70-100 [facility] Comment on above: Order Comment: Check Chest Tube Position, S/P Chest tube DC'd Performed By: #### 0 0071 ####[facility] Potassium [Moles/Vol] 3.3 mmol/L Low 3.5-5.1 [facility] Comment on above: Order Comment: Check Chest Tube Position, S/P Chest tube DC'd Performed By: #### 0 0071 ####[facility] [facility] Sodium [Moles/Vol] 140 mmol/L Normal 136-145 [facility] Comment on above: Order Comment: Check Chest Tube Position, S/P Chest tube DC'd Performed By: #### 0 0071 ####[facility] Urea nitrogen [Mass/Vol] 9 mg/dL Normal 7-25 [facility] Comment on above: Order Comment: Check Chest Tube Position, S/P Chest tube DC'd Performed By: #### 0 0071 ####[facility] CBC COMPLETE BLOOD COUNTon 0 03-12-2022 Hematocrit (Bld) [Volume fraction] 35.2 % Low 36.0-45.0 [facility] Comment on above: Order Comment: No: D o not add to previous draw Performed By: #### 3 5200 #### [facility] [address] [place] [address], [facility] Hemoglobin (Bld) [Mass/Vol] 10.1 g/dL Low 12.0-15.0 [facility] Comment on above: Order Comment: No: D o not add to previous draw Performed By: #### 3 5200 #### [facility] [address] [place] [address], [facility] IMM PLATELET FRAC 3.6 % Normal 0.8-6.3 [facility] Comment on above: Order Comment: No: D o not add to previous draw Performed By: #### 3 5200 #### [facility] [address] [place] [address], [facility] MCH (RBC) [Entitic mass] 21.9 pg Low 27.0-33.0 [facility] Comment on above: Order Comment: No: D o not add to previous draw Performed By: #### 3 5200 #### [facility] [address] [place] [address], [facility] MCHC (RBC) [Mass/Vol] 28.7 g/dL Low 32.0-35.0 [facility] Comment on above: Order Comment: No: D o not add to previous draw Performed By: #### 3 5200 #### [facility] [address] [place] [address], [facility] MCV (RBC) [Entitic vol] 76.2 fL Low 82.0-98.0 [facility] Comment on above: Order Comment: No: D o not add to previous draw Performed By: #### 3 5200 #### [facility] [address] [facility] [place] [id number], [facility] Nucleated RBC/100 WBC (Bld) [Ratio] 0 % Normal 0-0 [facility] Comment on above: Order Comment: No: D o not add to previous draw Performed By: #### 3 5200 #### [facility] [address] [facility] [place] [address], [facility] PLAT CNT 129 10*3/uL Low 150-400 [facility] Comment on above: Order Comment: No: D o not add to previous draw Performed By: #### 3 5200 #### [facility] [address] [facility] [address], [facility] RBC (Bld) [#/Vol] 4.62 10*6/uL Normal 3.80-5.00 [facility] Comment on above: Order Comment: No: D o not add to previous draw Performed By: #### 3 5200 #### [facility] [address] [place] [address], [facility] RDW Unable to Calculate Normal 11.5-15.0 [facility] Comment on above: Order Comment: No: D o not add to previous draw Performed By: #### 3 5200 #### [facility] [address] [facility] [place] [address], [facility] WBC (Bld) [#/Vol] 11.72 10*3/uL High 4.00-10.60 [facility] Comment on above: Order Comment: No: D o not add to previous draw Performed By: #### 3 5200 #### [facility] [address] [place] [address], [facility] POC GLUCOSE LABon 03-12-2022 Glucose [Mass/Vol] 252 mg/dL High 70-100 [facility] Comment on above: Performed By: #### 3 5200 #### [facility] [address] [facility] [address], [facility] POC GLUCOSE LABon 03-11-2022 Glucose [Mass/Vol] 121 mg/dL High 70-100 [facility] Comment on above: Performed By: #### 8 5499 ####[facility] [place] [address], [facility] Glucose [Mass/Vol] 122 mg/dL High 70-100 [facility] Comment on above: Performed By: #### 3 5200 #### [facility] [address] [place] [address], [facility] Glucose [Mass/Vol] 86 mg/dL Normal 70-100 [facility] Comment on above: Performed By: #### 3 5200 #### [facility] [address] [place] [address], [facility] PORTABLE CHEST 1 VIEWon PORTABLE CHEST 1 VIEW [facility] Department of Radiology [address] [place] [address] Patient Name: LISE CANALES : 1955 Sex: F Age: Race: White Pt. Location: [address] [place] [address] Patient Status: I Ordered Date: 03/11/2022 3:25:00 [...] abnormalities Electronically signed: Avinash Mckay. Transcribed by: [email or web address], User Resident: Electronically Signed by: AVINASH MCKAY @ 03/11/2022 06:30 PM Normal [facility] Comment on above: Order Comment: Evalu ate for Atelectasis CBC COMPLETE BLOOD COUNTon 0 03-10-2022 Erythrocyte distribution width (RBC) [Ratio] 29.9 % High 11.5-15.0 [facility] Comment on above: Order Comment: No: D o not add to previous draw Performed By: #### 3 5200 #### [facility] [address] [place] [address], [facility] Hematocrit (Bld) [Volume fraction] 32.2 % Low 36.0-45.0 [facility] Comment on above: Order Comment: No: D o not add to previous draw Performed By: #### 3 5200 #### [facility] [address] [place] [address], [facility] Hemoglobin (Bld) [Mass/Vol] 9.2 g/dL Low 12.0-15.0 [facility] Comment on above: Order Comment: No: D o not add to previous draw Performed By: #### 3 5200 #### [facility] [address] [place] [address], [facility] IMM PLATELET FRAC 3.4 % Normal 0.8-6.3 [facility] Comment on above: Order Comment: No: D o not add to previous draw Performed By: #### 3 5200 #### [facility] [address] [place] [address], [facility] MCH (RBC) [Entitic mass] 21.9 pg Low 27.0-33.0 [facility] Comment on above: Order Comment: No: D o not add to previous draw Performed By: #### 3 5200 #### [facility] [address] [place] [address], [facility] MCHC (RBC) [Mass/Vol] 28.6 g/dL Low 32.0-35.0 [facility] Comment on above: Order Comment: No: D o not add to previous draw Performed By: #### 3 5200 #### [facility] [address] [place] [address], [place] MCV (RBC) [Entitic vol] 76.7 fL Low 82.0-98.0 [facility] Comment on above: Order Comment: No: D o not add to previous draw Performed By: #### 3 5200 #### [facility] [address] [place] [id number], [facility] Nucleated RBC/100 WBC (Bld) [Ratio] 0 % Normal 0-0 [facility] Comment on above: Order Comment: No: D o not add to previous draw Performed By: #### 3 5200 #### [facility] [address] [place] [address], [facility] PLAT CNT 124 10*3/uL Low 150-400 [facility] Comment on above: Order Comment: No: D o not add to previous draw Performed By: #### 3 5200 #### [facility] [address] [place] [id number], [facility] RBC (Bld) [#/Vol] 4.20 10*6/uL Normal 3.80-5.00 [facility] Comment on above: Order Comment: No: D o not add to previous draw Performed By: #### 3 5200 #### [facility] [address] [place] [address], [facility] WBC (Bld) [#/Vol] 12.68 10*3/uL High 4.00-10.60 [facility] Comment on above: Order Comment: No: D o not add to previous draw Performed By: #### 3 5200 #### [facility] [address] [place] [address], [facility] HEMOGLOBIN A1Con 03-10-2022 Glucose [Moles/Vol] 143 mmol/L Normal [facility] Comment on above: Order Comment: No: D o not add to previous draw Result Comment: Resu lt changed by BSHORT on 03/10/2022 13:15. The previous value was 140. Performed By: #### 3 1791 #### [facility] [address] [place] [id number], [facility] HbA1c (Bld) [Mass fraction] 6.6 % High 4.0-6.0 [facility] Comment on above: Order Comment: No: D o not add to previous draw Result Comment: Resu lt changed by BSHORT on 03/10/2022 13:15. The previous value was 6.5. Performed By: #### 3 1791 #### [facility] [address] [facility] [place] [address], [place] POC GLUCOSE LABon 03-10-2022 Glucose [Mass/Vol] 107 mg/dL High 70-100 [facility] Comment on above: Performed By: #### 3 5200 #### [facility] [address] [facility] [address], [place] Glucose [Mass/Vol] 100 mg/dL Normal 70-100 [facility] Comment on above: Performed By: #### 8 5499 ####[facility] [facility] [address], [place] Glucose [Mass/Vol] 147 mg/dL High 70-100 [facility] Comment on above: Performed By: #### 8 5499 ####[facility] [facility] [address], [place] Glucose [Mass/Vol] 65 mg/dL Low 70-100 [facility] Comment on above: Performed By: #### 8 5499 ####[facility] [facility] [address], [facility] PORTABLE CHEST 1 VIEWon PORTABLE CHEST 1 VIEW [facility] Department of Radiology [address] [place] [address] Patient Name: LISE CANALES : 1955 Sex: F Age: Race: White Pt. Location: [address] [place] [address] Patient Status: I Ordered Date: 03/10/2022 7:40:00 [...] recommended. Electronically signed: Derek Ingram. Transcribed by: [email or web address], User Resident: Electronically Signed by: DEREK INGRAM @ 03/10/2022 12:10 PM Normal [facility] Comment on above: Order Comment: No: D o not add to previous draw *URINE CULTUREon 03-09-2022 *URINE CULTURE Clinical Report: (D) Specimen/Source: URINE/CLEAN VOID URINE Collected: 03/09/2022 01:58 Status: Final Last Updated: 03/10/2022 08:51 ISO (Final) 50,000 - 100,000 Cfu/mL Mixed Lexi: Multiple Organisms present suggest contamination. Suggest Repeat Specimen Normal [facility] Comment on above: Performed By: #### 3 0339 ####[facility] CBC W/DIFFon 03-09-2022 ABS IMM GRANS 0.1 10*3/uL Normal 0.0-0.2 [facility] Comment on above: Order Comment: Check Chest Tube Position, S/P Chest tube DC'd Performed By: #### 5 0103 ####[facility] ABS NEUTROPHILS 13.3 10*3/uL High 1.6-7.6 [facility] Comment on above: Order Comment: Check Chest Tube Position, S/P Chest tube DC'd Performed By: #### 5 0103 ####[facility] ANISO Moderate Normal [facility] Comment on above: Order Comment: Check Chest Tube Position, S/P Chest tube DC'd Performed By: #### 5 0103 ####[facility] Basophils (Bld) [#/Vol] 0.0 10*3/uL Normal 0.0-0.2 [facility] Comment on above: Order Comment: Check Chest Tube Position, S/P Chest tube DC'd Performed By: #### 5 0103 ####[facility] Basophils/100 WBC (Bld) 0.3 % Normal 0.0-1.0 [facility] Comment on above: Order Comment: Check Chest Tube Position, S/P Chest tube DC'd Performed By: #### 5 0103 ####[facility] Eosinophils (Bld) [#/Vol] 0.1 10*3/uL Normal 0.0-0.5 [facility] Comment on above: Order Comment: Check Chest Tube Position, S/P Chest tube DC'd Performed By: #### 5 0103 ####[facility] [facility] Eosinophils/100 WBC (Bld) 0.5 % Normal 0.0-6.0 [facility] Comment on above: Order Comment: Check Chest Tube Position, S/P Chest tube DC'd Performed By: #### 5 3 ####[facility] Erythrocyte distribution width (RBC) [Ratio] 28.7 % High 11.5-15.0 [facility] Comment on above: Order Comment: Check Chest Tube Position, S/P Chest tube DC'd Performed By: #### 5 3 ####[facility] Hematocrit (Bld) [Volume fraction] 29.1 % Low 36.0-45.0 [facility] Comment on above: Order Comment: Check Chest Tube Position, S/P Chest tube DC'd Performed By: #### 5 3 ####[facility] Hemoglobin (Bld) [Mass/Vol] 8.3 g/dL Low 12.0-15.0 [facility] Comment on above: Order Comment: Check Chest Tube Position, S/P Chest tube DC'd Performed By: #### 3 ####[facility] HYPO Slight Normal [facility] Comment on above: Order Comment: Check Chest Tube Position, S/P Chest tube DC'd Performed By: #### 5 0103 ####[facility] IMMATURE GRANS 0.5 % Normal 0.0-1.0 [facility] Comment on above: Order Comment: Check Chest Tube Position, S/P Chest tube DC'd Performed By: #### 5 0103 ####[facility] Lymphocytes (Bld) [#/Vol] 0.8 10*3/uL Low 1.2-4.0 [facility] Comment on above: Order Comment: Check Chest Tube Position, S/P Chest tube DC'd Performed By: #### 5 0103 ####[address] Lymphocytes/100 WBC (Bld) 5.5 % Low 20.0-45.0 [facility] Comment on above: Order Comment: Check Chest Tube Position, S/P Chest tube DC'd Performed By: #### 5 0103 ####[address] MCH (RBC) [Entitic mass] 21.7 pg Low 27.0-33.0 [facility] Comment on above: Order Comment: Check Chest Tube Position, S/P Chest tube DC'd Performed By: #### 5 0103 ####[facility] MCHC (RBC) [Mass/Vol] 28.5 g/dL Low 32.0-35.0 [facility] Comment on above: Order Comment: Check Chest Tube Position, S/P Chest tube DC'd Performed By: #### 5 3 ####[facility] MCV (RBC) [Entitic vol] 76.2 fL Low 82.0-98.0 [facility] Comment on above: Order Comment: Check Chest Tube Position, S/P Chest tube DC'd Performed By: #### 5 0103 ####[facility] Monocytes (Bld) [#/Vol] 1.1 10*3/uL High 0.1-1.0 [facility] Comment on above: Order Comment: Check Chest Tube Position, S/P Chest tube DC'd Performed By: #### 0103 ####[facility] MONOS 7.3 % Normal 5.0-12.0 [facility] Comment on above: Order Comment: Check Chest Tube Position, S/P Chest tube DC'd Performed By: #### 5 3 ####[facility] [facility] Neutrophils/100 WBC (Bld) 85.9 % High 40.0-72.0 [facility] Comment on above: Order Comment: Check Chest Tube Position, S/P Chest tube DC'd Performed By: #### 5 102 ####[facility] [facility].[address] Nucleated RBC/100 WBC (Bld) [Ratio] 0 % Normal 0-0 [facility] Comment on above: Order Comment: Check Chest Tube Position, S/P Chest tube DC'd Performed By: #### 3 ####[facility] [facility].[address] PLAT CNT 149 10*3/uL Low 150-400 [facility] Comment on above: Order Comment: Check Chest Tube Position, S/P Chest tube DC'd Performed By: #### 102 ####[facility] POIK Slight Normal [facility] Comment on above: Order Comment: Check Chest Tube Position, S/P Chest tube DC'd Performed By: #### 5 0103 ####[facility] [facility] [place] [address], [facility] POLY Slight Normal [facility] Comment on above: Order Comment: Check Chest Tube Position, S/P Chest tube DC'd Performed By: #### 5 0103 ####[facility] [facility] [address], [facility] RBC (Bld) [#/Vol] 3.82 10*6/uL Normal 3.80-5.00 [facility] Comment on above: Order Comment: Check Chest Tube Position, S/P Chest tube DC'd Performed By: #### 5 0103 ####[facility] [facility] WBC (Bld) [#/Vol] 15.41 10*3/uL High 4.00-10.60 [facility] Comment on above: Order Comment: Check Chest Tube Position, S/P Chest tube DC'd Performed By: #### 5 0103 ####[facility] [facility] COMP METABOLIC PANELon 03-09 Albumin [Mass/Vol] 3.8 g/dL Normal 3.5-5.7 [facility] Comment on above: Order Comment: No: D o not add to previous draw Performed By: #### 3 5200, 48958, 73292, 66283 #### [facility] [address] [place] [address], [facility] ALKALINE PHOSPH 52 IU/L Normal 34-104 [facility] Comment on above: Order Comment: No: D o not add to previous draw Performed By: #### 3 5200, 70609, 36828, 76523 #### [facility] [address] [place] [address], [place] ALT [Catalytic activity/Vol] 13 U/L Normal 7-52 [facility] Comment on above: Order Comment: No: D o not add to previous draw Performed By: #### 3 5200, 86128, 25755, 81847 #### [facility] [address] [place] [address], [place] AST [Catalytic activity/Vol] 14 U/L Normal 13-39 [facility] Comment on above: Order Comment: No: D o not add to previous draw Performed By: #### 3 5200, 57924, 46456, 23098 #### [facility] [address] [place] [address], [place] Bilirubin [Mass/Vol] 0.4 mg/dL Normal 0.3-1.0 [facility] Comment on above: Order Comment: No: D o not add to previous draw Performed By: #### 3 0, 09366, 70347, 75644 #### [facility] [address] [place] [address], [place] Calcium [Mass/Vol] 9.2 mg/dL Normal 8.6-10.3 [facility] Comment on above: Order Comment: No: D o not add to previous draw Performed By: #### 3 0, 51690, 65410, 21648 #### [facility] [address] [place] [address], [place] Chloride [Moles/Vol] 99 mmol/L Normal 98-107 [facility] Comment on above: Order Comment: No: D o not add to previous draw Performed By: #### 3 5200, 18921, 11758, 53019 #### [facility] [address] [place] [address], [place] CO2 [Moles/Vol] 33 mmol/L High 21-31 [facility] Comment on above: Order Comment: No: D o not add to previous draw Performed By: #### 3 5200, 89314, 78803, 34502 #### [facility] [address] [place] [address], [facility] Creatinine [Mass/Vol] 0.79 mg/dL Normal 0.55-1.02 [facility] Comment on above: Order Comment: No: D o not add to previous draw Performed By: #### 3 0, 84125, 63447, 36002 #### [facility] [address] [place] [address], [facility] Performed By: #### B LDCX1 #### [facility] [address] [place] [address] Dr. Kayley Hatfield GFR/1.73 sq M.predicted among non-blacks MDRD (S/P/Bld) [Vol rate/Area] mL/min/{1.73_m2} Normal >60 [facility] Comment on above: Order Comment: No: D o not add to previous draw Result Comment: [facility]'s estimated glomerular filtration rate (eGFR) [...] group of individuals. Performed By: #### 3 0, 25307, 07527, 26396 #### [facility] [address] [place] [address], [facility] Glucose [Mass/Vol] 125 mg/dL High 70-100 [facility] Comment on above: Order Comment: No: D o not add to previous draw Performed By: #### 3 0, 65146, 65481, 35042 #### [facility] [address] [place] [address], [place] Potassium [Moles/Vol] 4.7 mmol/L Normal 3.5-5.1 [facility] Comment on above: Order Comment: No: D o not add to previous draw Performed By: #### 3 5200, 61392, 81085, 59558 #### [facility] [address] [place] [address], [facility] Protein [Mass/Vol] 5.9 g/dL Low 6.0-8.3 [facility] Comment on above: Order Comment: No: D o not add to previous draw Performed By: #### 3 5200, 99622, 33469, 31884 #### [facility] [address] [place] [address], [place] Sodium [Moles/Vol] 136 mmol/L Normal 136-145 [facility] Comment on above: Order Comment: No: D o not add to previous draw Performed By: #### 3 5200, 66163, 64490, 38677 #### [facility] [address] [place] [address], [facility] Urea nitrogen [Mass/Vol] 12 mg/dL Normal 7-25 [facility] Comment on above: Order Comment: No: D o not add to previous draw Performed By: #### 3 5200, 67182, 75600, 73365 #### [facility] [address] [place] [address], [facility] LIPID PROFILEon 03-09-2022 Cholesterol [Mass/Vol] 160 mg/dL Normal 120-200 [facility] Comment on above: Order Comment: No: D o not add to previous draw Result Comment: CHOL ESTEROL REFERENCE RANGE: 20 YEARS AND OLDER CARDIOVASCULAR RISK Less than 200 mg/dl Low Risk 200 to 239 mg/dl Borderline Risk 240 mg/dl and greater High Risk Performed By: #### 3 5200, 24276, 08801, 48123 #### [facility] [address] [place] [address], [facility] Cholesterol in HDL [Mass/Vol] 76 mg/dL Normal 23-92 [facility] Comment on above: Order Comment: No: D o not add to previous draw Result Comment: Slig ht variation in normal range could be due to gender and/or age. HDL CHOLESTEROL REFERENCE RANGE: 20 years and older Cardiovascular Risk > or =60 mg/dL Desirable 40 TO 59 mg/dL Low Risk <40 mg/dL High Risk Performed By: #### 3 5200, 36474, 28443, 00863 #### [facility] [address] [place] [address], [place] Cholesterol in LDL [Mass/Vol] 48 mg/dL Normal 0-130 [facility] Comment on above: Order Comment: No: D o not add to previous draw Result Comment: LDL IS A CALCULATION LDL IS ONLY VALID IF THE TRIG IS LESS THAN 400. Performed By: #### 3 5200, 86581, 80779, 23634 #### [facility] [address] [place] [address], [place] Cholesterol.total/Cho lesterol in HDL [Mass ratio] 2.1 {ratio} Normal .0-4.5 [facility] Comment on above: Order Comment: No: D o not add to previous draw Performed By: #### 3 5200, 66397, 50645, 66259 #### [facility] [address] [place] [address], [facility] NON-HDL CHOLESTEROL 84 mg/dL Normal [facility] Comment on above: Order Comment: No: D o not add to previous draw Performed By: #### 3 5200, 99052, 57521, 58862 #### [facility] [address] [place] [address], [place] Triglyceride [Mass/Vol] 179 mg/dL High 40-149 [facility] Comment on above: Order Comment: No: D o not add to previous draw Result Comment: TRIG LYCERIDE REFERENCE RANGE: 20 YEARS AND OLDER CARDIOVASCULAR RISK LESS THAN 150 mg/dl LOW RISK 150 TO 199 mg/dl BORDERLINE RISK 200 mg/dl AND GREATER HIGH RISK Performed By: #### 3 5200, 35145, 90143, 59317 #### [facility] [address] [place] [address], [facility] VLDL CHOL 36 mg/dL Normal 0-40 [facility] Comment on above: Order Comment: No: D o not add to previous draw Performed By: #### 3 5200, 13283, 54306, 51574 #### [facility] [address] [place] [address], [facility] POC GLUCOSE LABon 03-09-2022 Glucose [Mass/Vol] 105 mg/dL High 70-100 [facility] Comment on above: Performed By: #### 8 5499 ####[facility] [facility].[address] POC SARS COV2 ANTIGEN NEGATI VEon 03-09-2022 POC SARS COV2 ANTIGEN NEG Negative Normal NEGATIVE [facility] Comment on above: Result [...] antigen from SARS-CoV-2 in direct nasopharyngeal swab (RAILROAD SURVEYOR) specimens from individuals who are suspected of [...] of Accreditation. Performed By: #### 3 2044 ####[facility] [facility].[place], [place] [address] PORTABLE CHEST 1 VIEWon 090 PORTABLE CHEST 1 VIEW [facility] Department of Radiology [address] [place] [address] Patient Name: LISE CANALES : 1955 Sex: F Age: Race: White Pt. Location: [id number] Patient Status: I Ordered Date: 03/09/2022 8:55:00 [...] COPD. Electronically signed: Derek Ingram. Transcribed by: [email or web address], User Resident: Electronically Signed by: DEREK INGRAM @ 03/09/2022 02:48 PM Normal [facility] Comment on above: Order Comment: Check Chest Tube Position, S/P Chest tube DC'd TROPONIN-Ion 03-09-2022 Troponin I.cardiac [Mass/Vol] 0.00 ng/mL Normal 0.00-0.04 [facility] Comment on above: Order Comment: No: D o not add to previous draw Result Comment: REFE RENCE RANGES: 0.00 - 0.04 ng/ml NORMAL 0.05 - 0.50 ng/ml INDETERMINATE > 0.50 ng/ml CONSISTENT WITH AN M.I. Performed By: #### 3 5200, 28830, 99295, 58374 #### [facility] [address] [place] [address], [facility] Troponin I.cardiac [Mass/Vol] 0.01 ng/mL Normal 0.00-0.04 [facility] Comment on above: Order Comment: No: D o not add to previous draw Result Comment: REFE RENCE RANGES: 0.00 - 0.04 ng/ml NORMAL 0.05 - 0.50 ng/ml INDETERMINATE > 0.50 ng/ml CONSISTENT WITH AN M.I. Performed By: #### 3 5200 #### [facility] [address] [place] [address], [place] Troponin I.cardiac [Mass/Vol] 0.00 ng/mL Normal 0.00-0.04 [facility] Comment on above: Order Comment: No: D o not add to previous draw Result Comment: REFE RENCE RANGES: 0.00 - 0.04 ng/ml NORMAL 0.05 - 0.50 ng/ml INDETERMINATE > 0.50 ng/ml CONSISTENT WITH AN M.I. Performed By: #### 3 5200, 13010, 87705, 02758 #### [facility] [address] TSH3 WITH REFLEX FT4on 03-09 TSH 3RD GENERATION 0.60 uIU/mL Normal 0.34-5.60 [facility] Comment on above: Order Comment: No: D o not add to previous draw Performed By: #### 3 5200, 88991, 28933, 55911 #### [facility] [address] [place] [address], [facility] URINALYSIS REFLEXon 03-09-20 Appearance (U) CLEAR Normal CLEAR [facility] Comment on above: Order Comment: Check Chest Tube Position, S/P Chest tube DC'd Performed By: #### 3 0965 ####[facility] [facility].[address] Bilirubin Ql (U) Negative Normal NEGATIVE [facility] Comment on above: Order Comment: Check Chest Tube Position, S/P Chest tube DC'd Performed By: #### 3 0965 ####[facility] Color (U) STRAW Abnormal YELLOW [facility] Comment on above: Order Comment: Check Chest Tube Position, S/P Chest tube DC'd Performed By: #### 3 0965 ####[facility] [facility] [place] [address], [facility] EPIS OCC Normal FEW,OCC,NONE SEEN [facility] Comment on above: Order Comment: Check Chest Tube Position, S/P Chest tube DC'd Performed By: #### 3 0965 ####[facility] [place] [address], [facility] Glucose Ql (U) Negative Normal NEGATIVE [facility] Comment on above: Order Comment: Check Chest Tube Position, S/P Chest tube DC'd Performed By: #### 3 0965 ####[id number] Hemoglobin Ql (U) MODERATE Abnormal NEGATIVE [facility] Comment on above: Order Comment: Check Chest Tube Position, S/P Chest tube DC'd Performed By: #### 3 0965 ####[id number] KETONE Negative Normal NEGATIVE [facility] Comment on above: Order Comment: Check Chest Tube Position, S/P Chest tube DC'd Performed By: #### 3 0965 ####[id number] LEUK SHARMIN SMALL Abnormal NEGATIVE [facility] Comment on above: Order Comment: Check Chest Tube Position, S/P Chest tube DC'd Performed By: #### 3 0965 ####[place] [id number] [address] MUCUS THREADS OCC Abnormal NONE SEEN [facility] Comment on above: Order Comment: Check Chest Tube Position, S/P Chest tube DC'd Performed By: #### 3 0965 ####[id number] Nitrite Ql (U) Negative Normal NEGATIVE [facility] Comment on above: Order Comment: Check Chest Tube Position, S/P Chest tube DC'd Performed By: #### 3 0965 ####[id number] pH (U) 6.0 [pH] Normal 5.0-8.0 [facility] Comment on above: Order Comment: Check Chest Tube Position, S/P Chest tube DC'd Performed By: #### 3 0965 ####[id number] [place] [address] Protein Ql (U) Negative Normal NEGATIVE [facility] Comment on above: Order Comment: Check Chest Tube Position, S/P Chest tube DC'd Performed By: #### 3 0965 ####[id number] RBC 6-10 Abnormal NONE SEEN [facility] Comment on above: Order Comment: Check Chest Tube Position, S/P Chest tube DC'd Performed By: #### 3 0965 ####[id number] SPEC GRAV 1.015 Normal 1.015-1.020 [facility] Comment on above: Order Comment: Check Chest Tube Position, S/P Chest tube DC'd Performed By: #### 3 0965 ####[id number].[address] WBC UA 11-20 Abnormal NONE SEEN [facility] Comment on above: Order Comment: Check Chest Tube Position, S/P Chest tube DC'd Performed By: #### 3 0965 ####[id number] CBC W MANUAL DIFFon 03-08-20 22 ATYPICAL LYMPH # Normal [facility] Comment on above: Performed By: #### C VDTBH #### [facility] [address] [place] [address] Dr. Kayley Hatfield ATYPICAL LYMPH % Normal [facility] Comment on above: Performed By: #### C VDTBH #### [facility] [address] [address] [address] Kayley MELISSA # Normal 0.0-0.3 [facility] Comment on above: Performed By: #### C VDTBH #### [facility] [address] [address] [address] Kayley Hatfield BAND % Normal 0-5 [facility] Comment on above: Performed By: #### C VDTBH #### [facility] [address] [address] [address] Kayley Hatfield BASOM # 0.00 103/ul Normal 0.00-0.10 [facility] Comment on above: Performed By: #### C VDTBH #### [facility] [address] [place] [address] Dr. Kayley Hatfield BASOM % 0.0 % Critically low 0.2-2.0 [facility] [place] [facility] Comment on above: Performed By: #### C VDTBH #### [facility] [address] [place] [address] Dr. Kayley Hatfield BLAST # Normal [facility] Comment on above: Performed By: #### C VDTBH #### [facility] [address] [place] [address] Dr. Kayley Hatfield BLAST % Normal [facility] Comment on above: Performed By: #### C VDTBH #### [facility] [address] [place] [address] Dr. Kayley Hatfield CORRECTED WBC Normal 4.0-11.0 [facility] Comment on above: Performed By: #### C VDTBH #### [facility] [address] [place] [address] Dr. Kayley Hatfield EOS # 0.14 103/ul Normal 0.00-0.70 [facility] Comment on above: Performed By: #### C VDTBH #### [facility] [address] [place] [address] Dr. Kayley Hatfield EOS% 1.0 % Normal 0.9-7.0 [facility] Comment on above: Performed By: #### C VDTBH #### [facility] [address] [place] [address] Dr. Kayley Hatfield HCT 27.5 % Critically low 36.0-48.0 [facility] [place] [facility] Comment on above: Performed By: #### C VDTBH #### [facility] [address] [place] [address] Dr. Kayley Hatfield HGB 7.9 g/dl Critically low 12.0-16.0 [facility] [place] [facility] Comment on above: Performed By: #### C VDTBH #### [facility] [address] [place] [address] Dr. Kayley Hatfield LYMPHM # 1.42 103/ul Normal 1.20-3.80 [facility] Comment on above: Performed By: #### C VDTBH #### [facility] [address] [address] [address] Kayley Hatfield LYMPHM% 10.0 % Critically low 20.5-60.0 [facility] [place] [facility] Comment on above: Performed By: #### C VDTBH #### [facility] [address] [address] [address] Kayley Hatfield MCH 21.5 pg Critically low 26.7-34.0 [facility] [place] [facility] Comment on above: Performed By: #### C VDTBH #### [facility] [address] [place] [address] Dr. Kayley Hatfield MCHC 28.7 g/dl Critically low 29.9-35.2 [facility] Comment on above: Performed By: #### C VDTBH #### [facility] [address] [place] [address] Dr. Kayley Hatfield MCV 74.7 fL Critically low 81.0-99.0 [facility] [place] [facility] Comment on above: Performed By: #### C VDTBH #### [facility] [address] [place] [address] Dr. Kayley Hatfield METAMYELOCYTE # Normal [facility] Comment on above: Performed By: #### C VDTBH #### [facility] [address] [place] [address] Dr. Kayley Hatfield METAMYELOCYTE % Normal [facility] Comment on above: Performed By: #### C VDTBH #### [facility] [address] [place] [address] Dr. Kayley Hatfield MONOM# 2.13 103/ul Critically high 0.30-0.80 [facility] Comment on above: Performed By: #### C VDTBH #### [facility] [address] [place] [address] Dr. Kayley Hatfield MONOM% 15.0 % Critically high 1.7-12.0 [facility] Comment on above: Performed By: #### C VDTBH #### [facility] [address] [address] [address] Kayley Hatfield MPV 9.5 fL Normal 9.5-13.5 [facility] Comment on above: Performed By: #### C VDTBH #### [facility] [address] [address] [address] Kayley Hatfield MYELOCYTE # Normal [facility] Comment on above: Performed By: #### C VDTBH #### [facility] [address] [place] [address] Dr. Kayley Hatfield MYELOCYTE % Normal [facility] Comment on above: Performed By: #### C VDTBH #### [facility] [address] [place] [address] Dr. Kayley Hatfield NRBC Normal [facility] Comment on above: Performed By: #### C VDTBH #### [facility] [address] [place] [address] Dr. Kayley Hatfield PLT 180 103/ul Normal 150-450 [facility] Comment on above: Performed By: #### C VDTBH #### [facility] [address] [place] [address] Dr. Kayley Hatfield RBC 3.68 106/ul Critically low 4.20-5.40 [facility] Comment on above: Performed By: #### C VDTBH #### [facility] [address] [place] [address] Dr. Kayley Hatfield RDW 27.5 % Critically high 11.0-15.0 [facility] Comment on above: Performed By: #### C VDTBH #### [facility] [address] [place] [address] Dr. Kayley Hatfield SEG # 10.51 103/ul Critically high 1.40-6.50 [facility] Comment on above: Performed By: #### C VDTBH #### [facility] [address] [place] [address] Dr. Kayley Hatfield SEG % 74.0 % Normal 43.0-75.0 [facility] Comment on above: Performed By: #### C VDTBH #### [facility] [address] [place] [address] Dr. Kayley Hatfield WBC 14.2 103/ul Critically high 4.0-11.0 [facility] Comment on above: Performed By: #### C VDTBH #### [facility] [address] [place] [address] Dr. Kayley Hatfield PRBC LEUKOREDUCEDon 03-08-20 ABO and Rh group Nom (Bld) Cross Match Result Compatible Unit Blood Type O Pos Unit Number [id number] Status Information Transfused Product ID Red Blood Cells Product Code [id number] Cross Match Result Compatible Blood Bank Notes CALLED TO VIC IN ICU @1657 Unit Blood Type O Pos Unit Number [id number] Status Information Transfused Product ID Red Blood Cells Product Code [id number] Normal [facility] Comment on above: Performed By: #### P RBC #### [facility] [address] [place] [address] Dr. Kayley Hatfield PROF CHEM 8 (BAS METB)on Anion gap [Moles/Vol] 10.1 mmol/L Normal [facility] Comment on above: Performed By: #### B LDCX1 #### [facility] [address] [place] [address] Dr. Kayley Haftield Calcium [Mass/Vol] 8.8 mg/dL Normal 8.5-10.1 [facility] Comment on above: Performed By: #### B LDCX1 #### [facility] [address] [place] [address] Dr. Kayley Hatfield Chloride [Moles/Vol] 100 mmol/L Normal 98-107 [facility] Comment on above: Performed By: #### B LDCX1 #### [facility] [address] [place] [address] Dr. Kayley Hatfield CO2 [Moles/Vol] 34.2 mmol/L Critically high 21.0-32.0 [facility] Comment on above: Performed By: #### B LDCX1 #### [facility] [address] [place] [address] Dr. Kayley Hatfield EGFR-AF GREEK >60 Normal >=60 [facility] Comment on above: Performed By: #### B LDCX1 #### [facility] [address] [place] [address] Dr. Kayley Hatfield EGFR-NON AF GREEK >60 Normal >=60 [facility] Comment on above: Performed By: #### B LDCX1 #### [facility] [address] [address] [address] Kayley Hatfield Glucose [Mass/Vol] 107 mg/dL Critically high 74-106 [facility] Comment on above: Performed By: #### B LDCX1 #### [facility] [address] [address] [address] Kayley Hatfield Potassium [Moles/Vol] 4.3 mmol/L Normal 3.5-5.1 [facility] Comment on above: Performed By: #### B LDCX1 #### [facility] [address] [place] [address] Dr. Kayley Hatfield Sodium [Moles/Vol] 140 mmol/L Normal 136-145 [facility] Comment on above: Performed By: #### B LDCX1 #### [facility] [address] [place] [address] Dr. Kayley Hatfield Urea nitrogen [Mass/Vol] 15.0 mg/dL Normal 7.0-18.0 [facility] Comment on above: Performed By: #### B LDCX1 #### [facility] [address] [place] [address] Dr. Kayley Hatfield Urea nitrogen/Creatinine [Mass ratio] 19.0 mg/mg Normal [facility] Comment on above: Performed By: #### B LDCX1 #### [facility] [address] [place] [address] Dr. Kayley Hatfield XR CHEST 1 Von [...] MIGUE REYNOSO Date: 2022-03-08 07:02 Normal [facility] CBC W MANUAL DIFFon 03-07-20 22 ACANTHOCYTES SLIGHT Normal [facility] Comment on above: Performed By: #### B LDCX1 #### [facility] [address] [place] [address] Dr. Kayley Hatfield ANISOCYTOSIS 2+ Normal [facility] Comment on above: Performed By: #### B LDCX1 #### [facility] [address] [place] [address] Dr. Kayley Hatfield ATYPICAL LYMPH # Normal [facility] Comment on above: Performed By: #### B LDCX1 #### [facility] [address] [place] [address] Dr. Kayley Hatfield ATYPICAL LYMPH % Normal [facility] Comment on above: Performed By: #### B LDCX1 #### [facility] [address] [place] [address] Dr. Kayley Hatfield BAND # 0.0 103/ul Normal 0.0-0.3 [facility] Comment on above: Performed By: #### B LDCX1 #### [facility] [address] [place] [address] Dr. Kayley Hatfield BAND % 0 % Normal 0-5 [facility] Comment on above: Performed By: #### B LDCX1 #### [facility] [address] [place] [address] Dr. Kayley Hatfield BASOM # 0.00 103/ul Normal 0.00-0.10 [facility] Comment on above: Performed By: #### B LDCX1 #### [facility] [address] [place] [address] Dr. Kayley Hatfield BASOM % 0.0 % Critically low 0.2-2.0 [facility] [place] [facility] Comment on above: Performed By: #### B LDCX1 #### [facility] [address] [place] [address] Dr. Kayley Hatfield BLAST # Normal [facility] Comment on above: Performed By: #### B LDCX1 #### [facility] [address] [place] [address] Dr. Kayley Hatfield BLAST % Normal [facility] Comment on above: Performed By: #### B LDCX1 #### [facility] [address] [place] [address] Dr. Kayley Hatfield ANDREE CELLS SLIGHT Normal [facility] Comment on above: Performed By: #### B LDCX1 #### [facility] [address] [place] [address] Dr. Kayley Hatfield CORRECTED WBC Normal 4.0-11.0 [facility] Comment on above: Performed By: #### B LDCX1 #### [facility] [address] [place] [address] Dr. Kayley Hatfield EOS # 0.16 103/ul Normal 0.00-0.70 [facility] Comment on above: Performed By: #### B LDCX1 #### [facility] [address] [place] [address] Dr. Kayley Hatfield EOS% 1.0 % Normal 0.9-7.0 [facility] Comment on above: Performed By: #### B LDCX1 #### [facility] [address] [place] [address] Dr. Kayley Hatfield GIANT PLATELETS SEEN Normal [facility] Comment on above: Performed By: #### B LDCX1 #### [facility] [address] [address] [address] Kayley Hatfield HCT 31.1 % Critically low 36.0-48.0 [facility] [place] [facility] Comment on above: Performed By: #### B LDCX1 #### [facility] [address] [place] [address] Dr. Kayley Hatfield HGB 9.1 g/dl Critically low 12.0-16.0 [facility] Comment on above: Performed By: #### B LDCX1 #### [facility] [address] [address] [address] Kayley Hatfield HYPOCHROMASIA 1+ Normal [facility] Comment on above: Performed By: #### B LDCX1 #### [facility] [address] [address] [address] Kayley Hatfield LYMPHM # 2.09 103/ul Normal 1.20-3.80 [facility] Comment on above: Performed By: #### B LDCX1 #### [facility] [address] [address] [address] Kayley Hatfield LYMPHM% 13.0 % Critically low 20.5-60.0 [facility] [place] [facility] Comment on above: Performed By: #### B LDCX1 #### [facility] [address] [place] [address] Dr. Kayley Hatfield MCH 21.4 pg Critically low 26.7-34.0 [facility] [place] [facility] Comment on above: Performed By: #### B LDCX1 #### [facility] [address] [address] [address] Kayley Hatfield MCHC 29.3 g/dl Critically low 29.9-35.2 [facility] [place] [facility] Comment on above: Performed By: #### B LDCX1 #### [facility] [address] [address] [address] Kayley Hatfield MCV 73.0 fL Critically low 81.0-99.0 [facility] [place] [facility] Comment on above: Performed By: #### B LDCX1 #### [facility] [address] [address] [address] Kayley Hatfield METAMYELOCYTE # Normal [facility] Comment on above: Performed By: #### B LDCX1 #### [facility] [address] [place] [address] Dr. Kayley Hatfield METAMYELOCYTE % Normal [facility] Comment on above: Performed By: #### B LDCX1 #### [facility] [address] [address] [address] Kayley Hatfield MICROCYTOSIS SLIGHT Normal [facility] Comment on above: Performed By: #### B LDCX1 #### [facility] [address] [place] [address] Dr. Kayley Hatfield MONOM# 0.48 103/ul Normal 0.30-0.80 [facility] Comment on above: Performed By: #### B LDCX1 #### [facility] [address] [place] [address] Dr. Kayley Hatfield MONOM% 3.0 % Normal 1.7-12.0 [facility] Comment on above: Performed By: #### B LDCX1 #### [facility] [address] [place] [address] Dr. Kayley Hatfield MPV 8.9 fL Critically low 9.5-13.5 [facility] [place] [facility] Comment on above: Performed By: #### B LDCX1 #### [facility] [address] [place] [address] Dr. Kayley Hatfield MYELOCYTE # Normal [facility] Comment on above: Performed By: #### B LDCX1 #### [facility] [address] [place] [address] Dr. Kayley Hatfield MYELOCYTE % Normal [facility] Comment on above: Performed By: #### B LDCX1 #### [facility] [address] [place] [address] Dr. Kayley Hatfield NRBC Normal [facility] Comment on above: Performed By: #### B LDCX1 #### [facility] [address] [place] [address] Dr. Kayley Hatfield PLT 243 103/ul Normal 150-450 [facility] Comment on above: Performed By: #### B LDCX1 #### [facility] [address] [place] [address] Dr. Kayley Hatfield RBC 4.26 106/ul Normal 4.20-5.40 [facility] Comment on above: Performed By: #### B LDCX1 #### [facility] [address] [place] [address] Dr. Kayley Hatfield RDW 27.1 % Critically high 11.0-15.0 [facility] Comment on above: Performed By: #### B LDCX1 #### [facility] [address] [place], [place] [address] Dr. Kayley Hatfield SEG # 13.36 103/ul Critically high 1.40-6.50 [facility] Comment on above: Performed By: #### B LDCX1 #### [facility] [address] [place], [place] [address] Dr. Kayley Hatfield SEG % 83.0 % Critically high 43.0-75.0 [facility] Comment on above: Performed By: #### B LDCX1 #### [facility] [address] [place], [place] [address] Dr. Kayley Hatfield WBC 16.1 103/ul Critically high 4.0-11.0 [facility] Comment on above: Performed By: #### B LDCX1 #### [facility] [id number] Kayley Hatfield CT CHEST WO CONon [...] by: ASAEL MALDONADO Date: 2022-03-07 09:42 Normal [facility] HEMOGLOBIN AND HEMATOCRITon 03-07-2022 Hematocrit (Bld) [Volume fraction] 31.8 % Critically low 36.0-48.0 [facility] Comment on above: Performed By: #### H GBHCT #### [facility] [address] [address] [address] Kayley Hatfield Hemoglobin (Bld) [Mass/Vol] 9.5 g/dL Critically low 12.0-16.0 [facility] Comment on above: Performed By: #### H GBHCT #### [facility] [address] [address] [address] Kayley Hatfield RETICULOCYTEon 03-07-2022 RETIC 1.92 % Normal 0.60-3.10 [facility] Comment on above: Performed By: #### O BSCRN #### [facility] [address] [place] [address] Dr. Kayley Hatfield XR CHEST 1 Von [...] ASAEL MALDONADO Date: 2022-03-07 12:54 Normal [facility] XR CHEST 1 V EXAM: XR [...] by: ASAEL MALDONADO Date: 2022-03-07 07:10 Normal [facility] BNPon 03-06-2022 Natriuretic peptide B (Bld) [Mass/Vol] 441.0 pg/mL Normal <=900.0 [facility] Comment on above: Performed By: #### H GBHCT #### [facility] [address] [place] [address] Dr. Kayley Hatfield CBC AUTO DIFFon 03-06-2022 BASO # 0.1 103/ul Normal 0.0-0.1 [facility] Comment on above: Performed By: #### O BSCRN #### [facility] [address] [place] [address] Dr. Kayley Hatfield Basophils/100 WBC (Bld) 0.7 % Normal 0.2-2.0 [facility] Comment on above: Performed By: #### O BSCRN #### [facility] [address] [place] [address] Dr. Kayley Hatfield EO # 0.1 103/ul Normal 0.0-0.7 [facility] Comment on above: Performed By: #### O BSCRN #### [facility] [address] [place] [address] Dr. Kayley Hatfield Eosinophils/100 WBC (Bld) 0.7 % Critically low 0.9-7.0 [facility] Comment on above: Performed By: #### O BSCRN #### [facility] [address] [place] [address] Dr. Kayley Hatfield Erythrocyte distribution width (RBC) [Ratio] 20.0 % Critically high 11.0-15.0 [facility] Comment on above: Performed By: #### O BSCRN #### [facility] [address] [place] [address] Dr. Kayley Hatfield Hematocrit (Bld) [Volume fraction] 20.1 % Critically low 36.0-48.0 [facility] Comment on above: Performed By: #### O BSCRN #### [facility] [address] [place] [address] Dr. Kayley Hatfield Hemoglobin (Bld) [Mass/Vol] 4.9 g/dL Critically low 12.0-16.0 [facility] Comment on above: Performed By: #### O BSCRN #### [facility] [address] [place] [address] Dr. Kayley Hatfield IG # 0.12 10e3/ul Critically high 0.00-0.03 [facility] Comment on above: Performed By: #### O BSCRN #### [facility] [address] [place] [address] Dr. Kayley Hatfield IG % 0.8 % Critically high 0.0-0.5 [facility] Comment on above: Performed By: #### O BSCRN #### [facility] [address] [place] [address] Dr. Kayley Hatfield LYMPH # 1.0 103/ul Critically low 1.2-3.8 [facility] [place] [facility] Comment on above: Performed By: #### O BSCRN #### [facility] [address] [place] [address] Dr. Kayley Hatfield Lymphocytes/100 WBC (Bld) 6.5 % Critically low 20.5-60.0 [facility] Comment on above: Performed By: #### O BSCRN #### [facility] [address] [place] [address] Dr. Kayley Hatfield MANUAL DIFF REQ NO Normal [facility] Comment on above: Performed By: #### O BSCRN #### [facility] [address] [place] [address] Dr. Kayley Hatfield MCH (RBC) [Entitic mass] 15.2 pg Critically low 26.7-34.0 [facility] Comment on above: Performed By: #### O BSCRN #### [facility] [address] [place] [address] Dr. Kayley Hatfield MCHC (RBC) [Mass/Vol] 24.4 g/dL Critically low 29.9-35.2 [facility] Comment on above: Performed By: #### O BSCRN #### [facility] [address] [place] [address] Dr. Kayley Hatfield MCV (RBC) [Entitic vol] 62.2 fL Critically low 81.0-99.0 [facility] Comment on above: Performed By: #### O BSCRN #### [facility] [address] [place] [address] Dr. Kayley Hatfield MONO # 0.5 103/ul Normal 0.3-0.8 [facility] Comment on above: Performed By: #### O BSCRN #### [facility] [address] [place] [address] Dr. Kayley Hatfield Monocytes/100 WBC (Bld) 3.5 % Normal 1.7-12.0 [facility] Comment on above: Performed By: #### O BSCRN #### [facility] [address] [place] [address] Dr. Kayley Hatfield NEUT # 13.2 103/ul Critically high 1.4-6.5 [facility] Comment on above: Performed By: #### O BSCRN #### [facility] [address] [place] [address] Dr. Kayley Hatfield Neutrophils/100 WBC (Bld) 87.8 % Critically high 43.0-75.0 [facility] Comment on above: Performed By: #### O BSCRN #### [facility] [address] [place] [address] Dr. Kayley Hatfield Platelet mean volume (Bld) [Entitic vol] 9.1 fL Critically low 9.5-13.5 [facility] Comment on above: Performed By: #### O BSCRN #### [facility] [address] [place] [address] Dr. Kayley Hatfield PLT 384 103/ul Normal 150-450 [facility] Comment on above: Performed By: #### O BSCRN #### [facility] [address] [place] [address] Dr. Kayley Hatfield RBC 3.23 106/ul Critically low 4.20-5.40 [facility] Comment on above: Performed By: #### O BSCRN #### [facility] [address] [place] [address] Dr. Kayley Hatfield WBC 15.1 103/ul Critically high 4.0-11.0 [facility] Comment on above: Performed By: #### O BSCRN #### [facility] [address] [place] [address] Dr. Kayley Hatfield CULTURE BLOODon 03-06-2022 Microscopic examination of blood, culture Culture Observations: NO GROWTH AT 5 DAYS. Normal [facility] Comment on above: Performed By: #### C VDTBH #### [facility] [address] [place] [address] Dr. Kayley Hatfield Performed By: #### B [id number] #### [facility] [address] [place] [address] Dr. Kayley Hatfield [facility] SARS-CoV-2 (COVID-19) RNA ELBA+probe Ql (Unsp spec) Not detected Normal NOT DETECTED [facility] Comment on above: Result Comment: When [...] for this test is supported by the [place] Inspector of Health and Human Service's declaration that [...] used). Performed By: #### C VDTBH #### [facility] [address] [place] [address] Dr. Kayley Hatfield ER URINE PROFILEon 2 Bilirubin Ql (U) Negative Normal NEGATIVE [facility] Comment on above: Performed By: #### P RBC #### [facility] [address] [place] [address] Dr. Kayley Hatfield Clarity (U) CLEAR Normal CLEAR [facility] Comment on above: Performed By: #### P RBC #### [facility] [address] [place] [address] Dr. Kayley Hatfield Color (U) LT. YELLOW Normal YELLOW [facility] Comment on above: Performed By: #### P RBC #### [facility] [address] [place] [address] Dr. Kayley Hatfield ERUAHD A micrscopic examination will be performed if indicated. Normal [facility] Comment on above: Performed By: #### P RBC #### [facility] [address] [place] [address] Dr. Kayley Hatfield Glucose Ql (U) Negative Normal NEGATIVE [facility] Comment on above: Performed By: #### P RBC #### [facility] [address] [place] [address] Dr. Kayley Hatfield Hemoglobin Ql (U) Negative Normal NEGATIVE [facility] Comment on above: Performed By: #### P RBC #### [facility] [address] [place] [address] Dr. Kayley Hatfield Ketones Ql (U) Negative Normal NEGATIVE [facility] Comment on above: Performed By: #### P RBC #### [facility] [address] [place] [address] Dr. Kayley Hatfield LEUKOCYTES Negative Normal NEGATIVE [facility] Comment on above: Performed By: #### P RBC #### [facility] [address] [place] [address] Dr. Kayley Hatfield Nitrite Ql (U) Negative Normal NEGATIVE [facility] [place] [facility] Comment on above: Performed By: #### P RBC #### [facility] [address] [place] [address] Dr. Kayley Hatfield pH (U) 6.0 [pH] Normal 5-9 [facility] Comment on above: Performed By: #### P RBC #### [facility] [address] [place] [address] Dr. Kayley Hatfield SPEC GRAVITY 1.010 Normal 1.005-<=1.025 [facility] Comment on above: Performed By: #### P RBC #### [facility] [address] [place] [address] Dr. Kayley Hatfield UA PROTEIN Negative Normal NEGATIVE/ TRACE [facility] Comment on above: Performed By: #### P RBC #### [facility] [address] [place] [address] Dr. Kayley Hatfield UR MICRO IND NOT INDICATED Normal [facility] Comment on above: Performed By: #### P RBC #### [facility] [address] [place] [address] Dr. Kayley Hatfield Urobilinogen Qn (U) 0.2 {Lu'U}/dL Normal 0.2 - 1. 0 [facility] Comment on above: Performed By: #### P RBC #### [facility] [address] [place] [address] Dr. Kayley Hatfield FERRITINon 03-06-2022 Ferritin [Mass/Vol] 4.0 ng/mL Critically low 8.0-252.0 [facility] Comment on above: Performed By: #### O BSCRN #### [facility] [address] [place] [address] Dr. Kayley Hatfield IRON AND TIBCon 03-06-2022 % SATURATION 2.3 % Normal [facility] Comment on above: Performed By: #### C VDTBH #### [facility] [address] [place] [address] Dr. Kayley Hatfield Iron [Mass/Vol] 12.0 ug/dL Critically low 50.0-170.0 [facility] Comment on above: Performed By: #### C VDTBH #### [facility] [address] [place] [address] Dr. Kayley Hatfield TIBC DIRECT 532.0 ug/dL Critically high 250.0-450.0 [facility] Comment on above: Performed By: #### C VDTBH #### [facility] [address] [place] [address] Dr. Kayley Hatfield OCC BLD IMMUNO SCREENon 02-07 OCCULT BLOOD Negative Normal NEGATIVE [facility] Comment on above: Performed By: #### O BSCRN #### [facility] [address] [place] [address] Dr. Kayley Hatfield PROF 14(COMP METB)on 022 Albumin [Mass/Vol] 3.6 g/dL Normal 3.4-5.0 [facility] Comment on above: Performed By: #### H GBHCT #### [facility] [address] [place] [address] Dr. Kayley Hatfield Albumin/Globulin [Mass ratio] 1.2 {ratio} Normal [facility] Comment on above: Performed By: #### H GBHCT #### [facility] [address] [place] [address] Dr. Kayley Hatfield ALP [Catalytic activity/Vol] 71 U/L Normal 46-116 [facility] Comment on above: Performed By: #### H GBHCT #### [facility] [address] [place] [address] Dr. Kayley Hatfield ALT [Catalytic activity/Vol] 20 U/L Normal 14-59 [facility] Comment on above: Performed By: #### H GBHCT #### [facility] [address] [place] [address] Dr. Kayley Hatfield Anion gap [Moles/Vol] 9.8 mmol/L Normal [facility] Comment on above: Performed By: #### H GBHCT #### [facility] [address] [place] [address] Dr. Kayley Hatfield AST [Catalytic activity/Vol] 12 U/L Critically low 15-37 [facility] Comment on above: Performed By: #### H GBHCT #### [facility] [address] [place] [address] Dr. Kayley Hatfield Bilirubin [Mass/Vol] 0.4 mg/dL Normal 0.2-1.0 [facility] Comment on above: Performed By: #### H GBHCT #### [facility] [address] [address] [address] Kayley Hatfield Calcium [Mass/Vol] 9.0 mg/dL Normal 8.5-10.1 [facility] Comment on above: Performed By: #### H GBHCT #### [facility] [address] [place] [address] Dr. Kayley Hatfield Chloride [Moles/Vol] 99 mmol/L Normal 98-107 [facility] Comment on above: Performed By: #### H GBHCT #### [facility] [address] [place] [address] Dr. Kayley Hatfield CO2 [Moles/Vol] 31.5 mmol/L Normal 21.0-32.0 [facility] Comment on above: Performed By: #### H GBHCT #### [facility] [address] [place] [address] Dr. Kayley Hatfield Creatinine [Mass/Vol] 0.89 mg/dL Normal 0.55-1.02 [facility] Comment on above: Performed By: #### H GBHCT #### [facility] [address] [place] [address] Dr. Kayley Hatfield EGFR-AF GREEK >60 Normal >=60 [facility] Comment on above: Performed By: #### H GBHCT #### [facility] [address] [place] [address] Dr. Kayley Hatfield EGFR-NON AF GREEK >60 Normal >=60 [facility] Comment on above: Performed By: #### H GBHCT #### [facility] [address] [place] [address] Dr. Kayley Hatfield Globulin (S) [Mass/Vol] 3.1 g/dL Normal [facility] Comment on above: Performed By: #### H GBHCT #### [facility] [address] [address] [address] Kayley Hatfield Glucose [Mass/Vol] 174 mg/dL Critically high 74-106 [facility] Comment on above: Performed By: #### H GBHCT #### [facility] [address] [address] [address] Kayley Hatfield Potassium [Moles/Vol] 4.3 mmol/L Normal 3.5-5.1 [facility] Comment on above: Performed By: #### H GBHCT #### [facility] [address] [address] [address] Kayley Hatfield Protein [Mass/Vol] 6.7 g/dL Normal 6.4-8.2 [facility] Comment on above: Performed By: #### H GBHCT #### [facility] [address] [address] [address] Kayley Hatfield Sodium [Moles/Vol] 136 mmol/L Normal 136-145 [facility] Comment on above: Performed By: #### H GBHCT #### [facility] [address] [address] [address] Kayley Hatfield Urea nitrogen [Mass/Vol] 17.0 mg/dL Normal 7.0-18.0 [facility] Comment on above: Performed By: #### H GBHCT #### [facility] [address] [address] [address] Kayley Hatfield Urea nitrogen/Creatinine [Mass ratio] 19.1 mg/mg Normal [facility] Comment on above: Performed By: #### H GBHCT #### [facility] [address] [place] [address] Dr. Kayley Hatfield TROPONIN, HIGH SENSITIVITYon 03-06-2022 HSTROP 7.0 pg/mL Normal 4.0-51.3 [facility] Comment on above: Result Comment: CUT- OFF POINTS HAVE BEEN ESTABLISHED BASED ON THE FOURTH UNIVERSAL DEFINITIONS OF MYOCARDIAL INFARCTION. THE UPPER REFERENCE LIMIT (URL) OF TROPONIN, DEFINED THE 99TH PERCENTILE OF cTnI DISTRIBUTION IN A REFERENCE POPULATION, HAS BEEN CONFIRMED THE DECISION THRESHOLD FOR NM DIAGNOSIS. Performed By: #### H GBHCT #### [facility] [address] [place], [place] [address] Dr. Kayley Hatfield TYPE AND SCREENon 03-06-2022 TYPE AND SCREEN Negative Normal [facility] Comment on above: Performed By: #### C VDTB #### [facility] [address] [place], [place] [address] Dr. Kayley Hatfield XR CHEST 1 Von [...] MIGUE REYNOSO Date: 2022-03-06 16:10 Normal [facility] XR CHEST 1 V EXAMINATION: XR [...] MIGUE REYNOSO Date: 2022-03-06 14:39 Normal [facility] XR DEXA BONE DENSITYon 12-22 XR [...] MIGUE REYNOSO Date: 2021-12-22 17:05 Normal [facility] CARDIAC ABDIAZIZ ADMITon 022 CK [Catalytic activity/Vol] 21 U/L Critically low 26-192 [facility] Comment on above: Performed By: #### B [id number] #### [facility] [address] [place] [address] Dr. Kayley Hatfield CK.MB [Mass/Vol] 1.00 ng/mL Normal <=3.60 [facility] Comment on above: Performed By: #### B [id number] #### [facility] [address] [address] [address] Kayley Hatfield HSTROP 11.6 pg/mL Normal 4.0-51.3 [facility] Comment on above: Result Comment: CUT- OFF POINTS HAVE BEEN ESTABLISHED BASED ON THE FOURTH UNIVERSAL DEFINITIONS OF MYOCARDIAL INFARCTION. THE UPPER REFERENCE LIMIT (URL) OF TROPONIN, DEFINED THE 99TH PERCENTILE OF cTnI DISTRIBUTION IN A REFERENCE POPULATION, HAS BEEN CONFIRMED THE DECISION THRESHOLD FOR NM DIAGNOSIS. Performed By: #### B [id number] #### [facility] [address] [address] [address] Kayley Hatfield ROD 48 ng/mL Normal 9-82 [facility] Comment on above: Performed By: #### B [id number] #### [facility] [address] [place] [address] Dr. Kayley Hatfield CBC AUTO DIFFon 12-14-2021 BASO # 0.1 103/ul Normal 0.0-0.1 [facility] Comment on above: Performed By: #### P RBC #### [facility] [address] [place] [address] Dr. Kayley Hatfield Basophils/100 WBC (Bld) 0.9 % Normal 0.2-2.0 [facility] Comment on above: Performed By: #### P RBC #### [facility] [address] [place] [address] Dr. Kayley Hatfield EO # 0.1 103/ul Normal 0.0-0.7 [facility] Comment on above: Performed By: #### P RBC #### [facility] [address] [place] [address] Dr. Kayley Hatfield Eosinophils/100 WBC (Bld) 0.5 % Critically low 0.9-7.0 [facility] Comment on above: Performed By: #### P RBC #### [facility] [address] [place] [address] Dr. Kayley Hatfield Erythrocyte distribution width (RBC) [Ratio] 15.4 % Critically high 11.0-15.0 [facility] Comment on above: Performed By: #### P RBC #### [facility] [address] [place] [address] Dr. Kayley Hatfield Hematocrit (Bld) [Volume fraction] 29.3 % Critically low 36.0-48.0 [facility] Comment on above: Performed By: #### P RBC #### [facility] [address] [place] [address] Dr. Kayley Hatfield Hemoglobin (Bld) [Mass/Vol] 8.3 g/dL Critically low 12.0-16.0 [facility] Comment on above: Performed By: #### P RBC #### [facility] [address] [place] [address] Dr. Kayley Hatfield IG # 0.05 10e3/ul Critically high 0.00-0.03 [facility] Comment on above: Performed By: #### P RBC #### [facility] [address] [place] [address] Dr. Kayley Hatfield IG % 0.4 % Normal 0.0-0.5 [facility] Comment on above: Performed By: #### P RBC #### [facility] [address] [place] [address] Dr. Kayley Hatfield LYMPH # 1.2 103/ul Normal 1.2-3.8 [facility] Comment on above: Performed By: #### P RBC #### [facility] [address] [place] [address] Dr. Kayley Hatfield Lymphocytes/100 WBC (Bld) 10.6 % Critically low 20.5-60.0 [facility] Comment on above: Performed By: #### P RBC #### [facility] [address] [place] [address] Dr. Kayley Hatfield MANUAL DIFF REQ NO Normal [facility] Comment on above: Performed By: #### P RBC #### [facility] [address] [place] [address] Dr. Kayley Hatfield MCH (RBC) [Entitic mass] 21.4 pg Critically low 26.7-34.0 [facility] Comment on above: Performed By: #### P RBC #### [facility] [address] [place] [address] Dr. Kayley Hatfield MCHC (RBC) [Mass/Vol] 28.3 g/dL Critically low 29.9-35.2 [facility] Comment on above: Performed By: #### P RBC #### [facility] [address] [place] [address] Dr. Kayley Hatfield MCV (RBC) [Entitic vol] 75.5 fL Critically low 81.0-99.0 [facility] Comment on above: Performed By: #### P RBC #### [facility] [address] [place] [address] Dr. Kayley Hatfield MONO # 0.9 103/ul Critically high 0.3-0.8 [facility] Comment on above: Performed By: #### P RBC #### [facility] [address] [place] [address] Dr. Kayley Hatfield Monocytes/100 WBC (Bld) 7.6 % Normal 1.7-12.0 [facility] Comment on above: Performed By: #### P RBC #### [facility] [address] [place] [address] Dr. Kayley Hatfield NEUT # 9.2 103/ul Critically high 1.4-6.5 [facility] Comment on above: Performed By: #### P RBC #### [facility] [address] [place] [address] Dr. Kayley Hatfield Neutrophils/100 WBC (Bld) 80.0 % Critically high 43.0-75.0 [facility] Comment on above: Performed By: #### P RBC #### [facility] [address] [place] [address] Dr. Kayley Hatfield Platelet mean volume (Bld) [Entitic vol] 9.3 fL Critically low 9.5-13.5 [facility] Comment on above: Performed By: #### P RBC #### [facility] [address] [place] [address] Dr. Kayley Hatfield PLT 498 103/ul Critically high 150-450 [facility] Comment on above: Performed By: #### P RBC #### [facility] [address] [place] [address] Dr. Kayley Hatfield RBC 3.88 106/ul Critically low 4.20-5.40 [facility] Comment on above: Performed By: #### P RBC #### [facility] [address] [place] [address] Dr. Kayley Hatfield WBC 11.5 103/ul Critically high 4.0-11.0 [facility] Comment on above: Performed By: #### P RBC #### [facility] [address] [place] [address] Dr. Kayley Hatfield ER URINE PROFILEon 2 Bilirubin Ql (U) Negative Normal NEGATIVE [facility] Comment on above: Performed By: #### H GBHCT #### [facility] [address] [place] [address] Dr. Kayley Hatfield Clarity (U) CLEAR Normal CLEAR [facility] Comment on above: Performed By: #### H GBHCT #### [facility] [address] [address] [address] Kayley Hatfield Color (U) LT. YELLOW Normal YELLOW [facility] Comment on above: Performed By: #### H GBHCT #### [facility] [address] [address] [address] Kayley Hatfield ERUAHBetsey A micrscopic examination will be performed if indicated. Normal [facility] Comment on above: Performed By: #### H GBHCT #### [facility] [address] [address] [address] Kayley Hatfield Glucose Ql (U) Negative Normal NEGATIVE [facility] [place] [facility] Comment on above: Performed By: #### H GBHCT #### [facility] [address] [place] [address] Dr. Kayley Hatfield Hemoglobin Ql (U) TRACE-INTACT Abnormal NEGATIVE [facility] Comment on above: Performed By: #### H GBHCT #### [facility] [address] [place] [address] Dr. Kayley Hatfield Ketones Ql (U) Negative Normal NEGATIVE [facility] [place] [facility] Comment on above: Performed By: #### H GBHCT #### [facility] [address] [address] [address] Kayley Hatfield LEUKOCYTES Negative Normal NEGATIVE [facility] Comment on above: Performed By: #### H GBHCT #### [facility] [address] [address] [address] Kayley Hatfield Nitrite Ql (U) Negative Normal NEGATIVE [facility] Comment on above: Performed By: #### H GBHCT #### [facility] [address] [address] [address] Kayley Hatfield pH (U) 6.5 [pH] Normal 5-9 [facility] Comment on above: Performed By: #### H GBHCT #### [facility] [address] [place] [address] Dr. Kayley Hatfield SPEC GRAVITY 1.015 Normal 1.005-<=1.025 [facility] Comment on above: Performed By: #### H GBHCT #### [facility] [address] [address] [address] Kayley Hatfiled UA PROTEIN Negative Normal NEGATIVE/ TRACE [facility] Comment on above: Performed By: #### H GBHCT #### [facility] [address] [address] [address] Kayley Hatfield UR MICRO IND INDICATED Normal [facility] Comment on above: Performed By: #### H GBHCT #### [facility] [address] [place] [address] Dr. Kayley Hatfield Urobilinogen Qn (U) 0.2 {Lu'U}/dL Normal 0.2 - 1. 0 [facility] Comment on above: Performed By: #### H GBHCT #### [facility] [address] [place] [address] Dr. Kayley Hatfield PROF 14(COMP METB)on 022 Albumin [Mass/Vol] 3.2 g/dL Critically low 3.4-5.0 [facility] [facility] Comment on above: Performed By: #### B [id number] #### [facility] [address] [place] [address] Dr. Kayley Hatfield Albumin/Globulin [Mass ratio] 0.8 {ratio} Normal [facility] Comment on above: Performed By: #### B [id number] #### [facility] [address] [place] [address] Dr. Kayley Hatfield ALP [Catalytic activity/Vol] 72 U/L Normal 46-116 [facility] Comment on above: Performed By: #### B LDCX1 #### [facility] [address] [place] [address] Dr. Kayley Hatfield ALT [Catalytic activity/Vol] 24 U/L Normal 14-59 [facility] Comment on above: Performed By: #### B LDCX1 #### [facility] [address] [place] [address] Dr. Kayley Hatfield Anion gap [Moles/Vol] 13.0 mmol/L Normal [facility] Comment on above: Performed By: #### B LDCX1 #### [facility] [address] [address] [address] Kayley Hatfield AST [Catalytic activity/Vol] 18 U/L Normal 15-37 [facility] Comment on above: Performed By: #### B LDCX1 #### [facility] [address] [address] [address] Kayley Hatfield Bilirubin [Mass/Vol] 0.3 mg/dL Normal 0.2-1.0 [facility] Comment on above: Performed By: #### B LDCX1 #### [facility] [address] [address] [address] Kayley Hatfield Calcium [Mass/Vol] 9.9 mg/dL Normal 8.5-10.1 [facility] Comment on above: Performed By: #### B LDCX1 #### [facility] [address] [address] [address] Kayley Hatfield Chloride [Moles/Vol] 98 mmol/L Normal 98-107 [facility] Comment on above: Performed By: #### B LDCX1 #### [facility] [address] [address] [address] Kayley Hatfield CO2 [Moles/Vol] 29.8 mmol/L Normal 21.0-32.0 [facility] Comment on above: Performed By: #### B [id number] #### [facility] [address] [address] [address] Kayley Hatfield Creatinine [Mass/Vol] 1.23 mg/dL Critically high 0.55-1.02 [facility] Comment on above: Performed By: #### B LDCX1 #### [facility] [address] [address] [address] Kayley Hatfield EGFR-AF GREEK 53 mL/min/1.73m2 Critically low >=60 [facility] Comment on above: Performed By: #### B LDCX1 #### [facility] [address] [address] [address] Kayley Hatfield EGFR-NON AF GREEK 44 mL/min/1.73m2 Critically low >=60 [facility] Comment on above: Performed By: #### B LDCX1 #### [facility] [address] [address] [address] Kayley Hatfield Globulin (S) [Mass/Vol] 3.9 g/dL Normal [facility] Comment on above: Performed By: #### B LDCX1 #### [facility] [address] [address] [address] Kayley Hatfield Glucose [Mass/Vol] 160 mg/dL Critically high 74-106 [facility] Comment on above: Performed By: #### B LDCX1 #### [facility] [address] [address] [address] Kayley Hatfield Potassium [Moles/Vol] 3.8 mmol/L Normal 3.5-5.1 [facility] Comment on above: Performed By: #### B LDCX1 #### [facility] [address] [place] [address] Dr. Kayley Hatfield Protein [Mass/Vol] 7.1 g/dL Normal 6.4-8.2 [facility] Comment on above: Performed By: #### B LDCX1 #### [facility] [address] [place] [address] Dr. Kayley Hatfield Sodium [Moles/Vol] 137 mmol/L Normal 136-145 [facility] Comment on above: Performed By: #### B LDCX1 #### [facility] [address] [place] [address] Dr. Kayley Hatfield Urea nitrogen [Mass/Vol] 20.0 mg/dL Critically high 7.0-18.0 [facility] Comment on above: Performed By: #### B LDCX1 #### [facility] [address] [place] [address] Dr. Kayley Hatfield Urea nitrogen/Creatinine [Mass ratio] 16.3 mg/mg Normal [facility] Comment on above: Performed By: #### B LDCX1 #### [facility] [address] [place] [address] Dr. Kayley Hatfield TROPONIN, HIGH SENSITIVITYon 12-14-2021 HSTROP 11.3 pg/mL Normal 4.0-51.3 [facility] Comment on above: Result Comment: CUT- OFF POINTS HAVE BEEN ESTABLISHED BASED ON THE FOURTH UNIVERSAL DEFINITIONS OF MYOCARDIAL INFARCTION. THE UPPER REFERENCE LIMIT (URL) OF TROPONIN, DEFINED THE 99TH PERCENTILE OF cTnI DISTRIBUTION IN A REFERENCE POPULATION, HAS BEEN CONFIRMED THE DECISION THRESHOLD FOR NM DIAGNOSIS. Performed By: #### P RTELEC #### [facility] [address] [place] [address] Dr. Kayley Hatfield URINE MICROSCOPIC ONLYon BACTERIA NONE SEEN Normal NONE SEEN [facility] Comment on above: Performed By: #### H GBHCT #### [facility] [address] [place] [address] Dr. Kayley Hatfield Bacteria identified Cx Nom (U) NOT INDICATED Normal [facility] Comment on above: Performed By: #### H GBHCT #### [facility] [address] [place] [address] Dr. Kayley Hatfield CAST SEEN Abnormal NONE SEEN [facility] Comment on above: Performed By: #### H GBHCT #### [facility] [address] [place] [address] Dr. Kayley Hatfield Crystals LM Nom (Urine sed) NONE SEEN Normal NONE SEEN [facility] Comment on above: Performed By: #### H GBHCT #### [facility] [address] [place] [address] Dr. Kayley Hatfield Epithelial cells LM Ql (Urine sed) FEW Abnormal NONE SEEN /RARE [facility] Comment on above: Performed By: #### H GBHCT #### [facility] [address] [place] [address] Dr. Kayley Hatfield HYALINE CAST RARE Normal [facility] Comment on above: Performed By: #### H GBHCT #### [facility] [address] [place] [address] Dr. Kayley Hatfield MUCOUS NONE SEEN Normal NONE SEEN [facility] Comment on above: Performed By: #### H GBHCT #### [facility] [address] [place] [address] Dr. Kayley Hatfield RBC 0-2 Normal 0-2 [facility] Comment on above: Performed By: #### H GBHCT #### [facility] [address] [place] [address] Dr. Kayley Hatfield WBC 0-2 Abnormal NONE SEEN [facility] Comment on above: Performed By: #### H GBHCT #### [facility] [address] [place] [address] Dr. Kayley Hatfield XR CHEST 1 Von [...] ASAEL MALDONADO Date: 2021-12-14 13:43 Normal [facility] BUNon 12-12-2021 Urea nitrogen [Mass/Vol] 15.0 mg/dL Normal 7.0-18.0 [facility] Comment on above: Performed By: #### P RBC #### [facility] [address] [place] [address] Dr. Kayley Hatfield CALCIUMon 12-12-2021 Calcium [Mass/Vol] 9.1 mg/dL Normal 8.5-10.1 [facility] Comment on above: Performed By: #### C VDTBH #### [facility] [address] [place] [address] Dr. Kayley Hatfield CREATININEon 12-12-2021 Creatinine [Mass/Vol] 1.05 mg/dL Critically high 0.55-1.02 [facility] Comment on above: Performed By: #### P RBC #### [facility] [address] [place] [address] Dr. Kayley Hatfield EGFR-AF GREEK >60 Normal >=60 [facility] Comment on above: Performed By: #### P RBC #### [facility] [address] [place] [address] Dr. Kayley Hatfield EGFR-NON AF GREEK 53 mL/min/1.73m2 Critically low >=60 [facility] Comment on above: Performed By: #### P RBC #### [facility] [address] [place] [address] Dr. Kayley Hatfield CRPon 12-12-2021 CRP [Mass/Vol] mg/L Normal <=1.0 [facility] Comment on above: Performed By: #### P RBC #### [facility] [address] [place] [address] Dr. Kayley Hatfield MAGNESIUMon 12-12-2021 Magnesium [Mass/Vol] 1.9 mg/dL Normal 1.8-2.4 [facility] Comment on above: Performed By: #### C VDTBH #### [facility] [address] [place] [address] Dr. Kayley Hatfield PHOSPHORUSon 12-12-2021 Phosphate [Mass/Vol] 4.1 mg/dL Normal 2.6-4.7 [facility] Comment on above: Performed By: #### C VDTBH #### [facility] [address] [place] [address] Dr. Kayley Hatfield [facility] SED RATE 35 mm/hr Critically high <=30 [facility] Comment on above: Performed By: #### P RTELEC #### [facility] [address] [place] [address] Dr. Kayley Hatfield Vital Signs Date Time Vital Sign Value Performing Clinician Faci lity 06-26-2023 15:27-0500 Diastolic blood pressure 103 mm[Hg] MD Erasto Burroughs Work Phone: [facility] 06-26-2023 15:27-0500 Heart rate 81 /min MD Erasto Burroughs Work Phone: [facility] 06-26-2023 15:27-0500 Respiratory rate 18 /min MD Erasto Burroughs Work Phone: [facility] 06-26-2023 15:27-0500 SaO2% (BldA) [Mass fraction] 95 % MD Erasto Burroughs Work Phone: [facility] 06-26-2023 15:27-0500 Systolic blood pressure 162 mm[Hg] MD Erasto Burroughs Work Phone: [facility] 06-26-2023 13:44-0500 Body height 162.56 cm MD Erasto Burroughs Work Phone: [facility] 06-26-2023 13:44-0500 Body weight 59.87 kg MD Erasto Burroughs Work Phone: [facility] 06-26-2023 13:44-0500 Inhaled oxygen flow rate 2 L/min MD Erasto Burroughs Work Phone: [facility] Encounters Encounter Date Encounter Type Care Provider Facility Start: 05-12-2024 ambulatory [facility] Start: 11-09-2023 End: 11-10-2023 ambulatory Ihsan BROWN Facility:[facility] Start: 08-18-2023 Refill Erasto Leggett Work Phone: [facility] Comment on above: DDD (degenerative di sc disease), lumbar (Primary Dx) Start: [facility]27[facility]20[facility] Start: 06-26-2023 End: 06-26-2023 ambulatory Remy Givens Facility:[facility] Start: 06-26-2023 End: 06-26-2023 Admission to same day surgery center MD Erasto Burorughs Work Phone: [facility] Work Phone: Start: 06-26-2023 End: 06-26-2023 ambulatory MD Erasto Burroughs Work Phone: [facility] Work Phone: Start: 06-14-2023 End: 06-14-2023 ambulatory SHAIKH HUMA Not Available Start: 06-05-2023 Evaluation and management of inpatient KONG BEAULIEU [facility] Start: 06-05-2023 Evaluation and management of inpatient BONITA [facility] Start: 06-05-2023 Evaluation and management of inpatient RAMÓNBOMBAYKRISTAN [facility] Start: 06-05-2023 End: 06-06-2023 Evaluation and management of inpatient AVINASH SERRANO [facility] Start: 05-15-2023 ambulatory Iman Jeter Facility:[facility] Start: 04-16-2023 End: 04-17-2023 ambulatory Ihsan BROWN Facility:[facility] Start: 10-31-2022 End: 11-01-[address] ERASTO BURROUGHS Facility:[facility] Start: 10-10-2022 End: 10-11-[address] ERASTO BURROUGHS Facility:[facility] Start: 08-14-2022 ambulatory [facility] Start: 05-01-2022 End: 05-02-[address] ERASTO BURROUGHS Facility:[facility] Start: 05-01-[address] ERASTO BURROUGHS Facil ity:[facility] Start: 04-25-2022 End: 04-26-[address] ERASTO BURROUGHS Facility:[facility] Start: 04-04-2022 Encounter for genera l adult medical examination without abnormal findings DR ERASTO BURROUGHS [facility] Start: 03-30-[address] ERASTO BURROUGHS Facil ity:[facility] Start: 03-29-2022 Encounter for genera l adult medical examination without abnormal findings DR ERASTO BURROUGHS [facility] Start: 03-28-2022 End: 03-30-2022 Evaluation and management of inpatient DR ERASTO BURROUGHS Facility:[facility] Start: 03-28-2022 End: 03-29-[address] ERASTO BURROUGHS Facility:[facility] Start: 03-28-2022 End: 03-29-2022 Encounter for general adult medical examination without abnormal findings DR ERASTO BURROUGHS Facility:[facility] Start: 03-08-2022 End: 03-15-2022 Evaluation and management of inpatient IMAN WILLIS Facility:[facility] Start: 03-06-2022 End: 03-08-2022 Evaluation and management [...] 09-05-2023 Hemoglobin A1c measurement Diabetes: Hemoglobin A1C [facility] Start: 08-27-2023 End: 08-27-2023 Patient encounter procedure 08/27/2023 2:30 PM EST Office Visit [facility] [address] [place] [id number] Erasto Burroughs MD [address] [place] [address] [facility] Start: 06-26-2023 [facility] Start: 03-09-2023 Influenza vaccination Influenza Vacc ine (#1) [facility] Start: 1997 Screening for malign ant neoplasm of breast Mammogram [facility] Start: 1976 Urine screening for protein Diabetes: Urine Protein Screening [facility] Start: 1967 Glaucoma screening Diabetes: R etinopathy Screening [facility] Start: 1957 Screening for malign ant neoplasm of colon [facility] Patient Education Esophageal Dilation [facility] Work Phone: Payers Date Payer Category Payer Medicare [id number] 2023 Self-pay [id number] 2022 Unknown [employer] [id number] 2022-Present [phone] [address] [address] [place] [address] [id number] 2013 Medicare MEDICARE MEDICAR E PART B [id number] 2013-Present [address] [address] [place] [address] Medicare [id number] 1959 Medicare [id number] 1959 Unknown [id number] 1959 Unknown [id number] 1957 Unknown [id number] 2.840.1.706140.3.579.2.64 7 1957 Unknown [id number] .840.1.336778.3.579.2.59 3 1957 Unknown [id number] 2..840.1.877827.3.579.2.59 3 1957 Unknown [id number] 2.16.840.1.824263.3.579.2.59 3 1957 Unknown [id number] 2.16.840.1.223283.3.579.2.59 3 1957 Unknown [id number] 2.16.840.1.584784.3.579.2.59 3 1957 Unknown [id number] 2.16.840.1.709295.3.579.2.59 3 1957 Unknown [id number] 2.16.840.1.104664.3.579.2.59 3 1957 Unknown [id number] 2.16.840.1.995937.3.579.2.59 3 1957 Unknown [id number] 2.16.840.1.633015.3.579.2.59 3 1957 Unknown [id number] 2.16.840.1.336038.3.579.2.59 3 1957 Unknown [id number] 2.16.840.1.741887.3.579.2.59 3 1957 Unknown [id number] 2.16.840.1.338189.3.579.2.59 3 1957 Unknown [id number] 2.16.840.1.037225.3.579.2.59 3 1957 Unknown [id number] 2.16.840.1.779441.3.579.2.12 59 1957 Unknown [id number] 2.16.840.1.696687.3.579.2.72 7 1957 Unknown [id number] 2.16.840.1.621130.3.579.2.72 7 1957 Unknown [id number] 2.16.840.1.107295.3.579.2.72 7 1957 Unknown [id number] 2.16.840.1.352588.3.579.2.72 7 Unknown [id number] 2.16.840.1.107407.3.579.2.53 1 Social History Date Type Detail Facility Start: 06-14-2023 End: 06-26-2023 Tobacco smoking status NHIS Ex-smoker (finding) [facility] Start: 1955 Sex Assigned At Female F [facility] End: 03-06-2022 History of tobacco use Current smoker [facility] End: 03-06-2022 History of tobacco use Cigarette Smoker [facility] Start: 06-14-2023 Cigarettes smoked current (pack per day) - Reported 2 [facility] Start: 06-14-2023 Tobacco use and exposure Smokeless tobacco non-user [facility] Start: 06-14-2023 Alcohol intake Ex-drinker (finding) [facility] Start: 06-14-2023 Tobacco use panel [facility] Start: 06-14-2023 Alcohol Comment caffine-2 cups daily [facility] Start: 1955 Sex Assigned At Not on file [facility] Goals Date Patient Goal Desired Activity /State Clinical Notes 03-09-2022 to 06-27-2023 Note Date & Type Note Facility 06-27-2023 Note [facility] Subjective Lise Canales is a 68 y.o. year old female patient being seen for follow up [facility] for NSTEMI. Denies chest pain, LE edema, [...] Prior additional history: She was admitted to [facility] in 10/2017 with sudden onset symptoms of [...] On 06/04/2023 she was admitted to [facility] transferred from the [facility] due to pneumonia. In that setting [...] Judgment normal. All (more content not included)... [facility] 06-26-2023 Procedure note [facility] 06-06-2023 Note Hospital Medicine Discharge Summary Final Discharge Diagnosis: Community acquired pneumonia of right lower lobe of lung Admission Diagnosis: NSTEMI (non-ST elevated myocardial infarction) (CMS/[facility]) [I21.4] Hospital course: 68 years old female lady with a medical history of hypertension, hyperlipidemia, gastroesophageal reflux disease, carotid disease, fibromyalgia, arthritis, polymyalgia rheumatica, COPD, temporal arteritis, and psoriasis. Came into the [facility] ER as a transfer from [facility] for concern of chest pain and [...] Center 06/27/2023 3:45 PM Jer Neff MD [facility] Your medication list START taking [...] HYDROcodone-acetaminophen 5-325 mg tablet Commonly known as: [place] melatonin 5 mg tablet metoprolol tartrate 25 [...] Your Medications These medications were sent to [id number] [address] [facility] [address] [facility] [address] cefdinir 300 mg capsule doxycycline 100 mg capsule Lise is allergic to azithromycin and latex. Disposition: Home-Health Care [facility] Discharge Condition: Stable Code Status: Prior Diagnostic [...] rhythm. Lungs: C (more content not included)... 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 Yes Who is your current PCP? Erasto Bruroughs Can I schedule a follow up appointment for you at the time of discharge? Yes Do you understand why you are taking your current medications? Yes Are you taking your medications as prescribed? Yes Did patient provide teach back? Yes Would you like use our pharmacy iMeds to fill your new medications at the time of Discharge? Yes Does the patient have a pillowcase cleaner assigned to them through their insurance? Yes [...] link and activate MyChart? MyChart already active [facility] 06-05-2023 Note . Hospital Medicine History and Physical 06/05/2023 1:22 AM THE HOSPITALIST TEAM PREFERS TO USE [employer] FOR COMMUNICATION 7AM-7PM. IF I DO NOT RESPOND WITHIN 15 MINUTES, PLEASE PAGE ME/CALL THROUGH THE ASSISTANT LIBRARIAN. FROM 7PM-7AM, PLEASE PAGE [phone](COVR) Chief Complaint No chief complaint on file. History of Present Illness Lise Canales is an 68 y.o. female who came from home with NSTEMi. This is a 68 years old female lady with a medical history of hypertension, hyperlipidemia, gastroesophageal reflux disease, carotid disease, fibromyalgia, arthritis, polymyalgia rheumatica, COPD, temporal arteritis, and psoriasis. Came into the [facility] ER as a transfer from [facility] for concern of chest pain and [...] Date Noted NSTEMI (non-ST elevated myocardial infarction) ([facility]) 06/05/2023 Acute on chronic respiratory failure with hypoxia ([facility]) 04/01/2022 Anemia, unspecified 04/01/2022 Recurrent spontaneous pneumothorax 03/30/2022 Giant cell arteritis with polymyalgia rheumatica ([facility]) 10/11/2021 Pneumothorax on left 08/02/2016 Coronary atherosclerosis 06/15/2014 Dyslipidemia 06/15/2014 Status post percutaneous transluminal coronary angioplasty 06/15/2014 Angina pectoris ([facility]) 05/04/2014 Electrocardiogram abnormal 05/04/2014 Abdominal pain 04/24/2014 Altered mental status 04/24/2014 Benign essential hypertension 04/24/2014 Congestive heart failure ([facility]) 04/24/2014 Dyspnea 04/24/2014 Gastroesophageal reflux disease 04/24/2014 History of psychiatric disorder 04/24/2014 Hyperlipidemia 04/24/2014 Headache 04/24/2014 Raynaud's disease 04/24/2014 Other and unspecified noninfectious gastroenteritis and colitis(558.9) 05/15/2007 Candidiasis of mouth 04/17/2007 COPD (chronic obstructive pulmonary disease) ([facility]) 04/17/2007 Diarrhea 04/17/2007 Loss of weight 04/17/2007 Other psoriasis 04/17/2007 Psoriatic arthropathy ([facility]) 04/17/2007 Other pneumothorax 03/30/2022 Assessment and Plan [...] over 92 -Scheduled (more content not included)... [facility] 08-14-2022 Note [facility] - [facility] Subjective Lise Zamudiot is a 67 y.o. year old female [...] smoking. Prior history: She was admitted to [facility] in 10/2017 with sudden onset symptoms of [...] 50 mcg by (more content not included)... [facility] 03-15-2022 Note MR#: [id number] I [facility] Pt. Name: Lise Canales Admitted: 03/08/2022 Discharged: 03/15/2022 Date of : [...] a 66-year-old female, who presented to the [facility] with shortness of breath and fatigue, [...] patient was subsequently transferred to for [facility] for further workup, was admitted to step-down [...] Penn MD Date Trans: 03/15/2022 04:48 P/mmo [id number] cc: Erasto Burroughs M.D. [address] [facility] [address] [facility] 03-13-2022 Note MR#: [id number] [facility] Pt. Name: Lise Canales Admitted: [...] Pineda MD Date Trans: 03/13/2022 10:30 A/gabriela [id number] cc: Erasto Burroughs M.D. [address] [facility] [address] [facility] 03-09-2022 Note MR#: [id number] [facility] Pt. Name: LizztLise Admitted: 03/05/2020 Discharged: 03/09/2020 [...] Helicobacter pylori infection, who presented to [facility] Emergency Department complaining of sudden onset of [...] [facility] and [...] appointment with the primary care provider through [facility] for close followup for her anxiety [...] 2 to 4 weeks. Follow up at [facility] on 03/16/2022 at 9:50 a.m. MEDICATIONS [...] additional documentation from me. Date Dict: 03/08/2022/03:04 P/Pauletteteresita Mccord CNP Date Trans: 03/09/2022 11:21 A/mmo [id number] cc: Marti Poole M.D. [address] [facility], [facility] [id number] Erasto Burroughs M.D. [address] [facility] [address] [facility] Evaluation note No assessment inform ation available [facility] Work Phone: Evaluation note Diagnosis DDD (degenerative disc disease), lumbar- Primary Degeneration of lumbar or lumbosacral intervertebral disc documented in this encounter [facility] and [facility] note Author Remy Givens [facility] June 26, 2023 2:44pm Note Date/Time June 26, 2023 2:44pm [facility] [address] [place] [address] Gastroenterology H&P Signed Patient: Lise Canales MR#: [id number] : 1955 Acct:[id number] Age/Sex: 68 / F Adm Date: 3 Loc: Room: Type: [facility] Attending Dr: Remy Givens MD Copies to: [...] MD Documented By: Remy Givens MD 06/26/23 1445 Signed By: <Electronically signed by Remy Givens MD> 06/26/23 9985 [facility] Work Phone: Hospital Discharge instructions Additional [...] problems. -Follow up with PCP. -Office number [phone].[facility] Work Phone: Summary Purpose Family History [...] and content) DATE CREATED AUTHOR 04/11/2022 [facility] DATE CREATED AUTHOR AUTHOR'S ORGANIZ ATION 11/04/2022 [facility] DATE CREATED AUTHOR AUTHOR'S ORGANIZ ATION 06/17/2023 [facility] EPIC DATE CREATED AUTHOR AUTHOR'S ORGANIZ ATION 07/01/2023 [facility] DATE CREATED AUTHOR AUTHOR'S ORGANIZ ATION 07/10/2023 [facility] DATE CREATED AUTHOR AUTHOR'S ORGANIZ ATION 11/13/2023 [facility] Care Teams (unrecognized sec tion and content) Team Status: Active Member Role Status Dates Erasto Burroughs MD Primary Care Provider Active Team Status: Inactive Member Role Status Dates Erasto Burroughs MD Primary Care Provider Active Remy Givens MD 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 [email or web address] provides no warranty or guarantee of the accuracy or completeness of information in this document.
[2024-01-07 12:47] LABS: Anion Gap 11.5; BUN Creatinine Ratio 18.2; Calcium 9.9 mg/dL (8.5-10.1); Carbon Dioxide 28.6 mmol/L (21.0-32.0); Chloride 99 mmol/L (98-107); Estimated GFR (African America 54 (>=60); Estimated GFR (Non-African Ame 45 (>=60); Glucose 249 mg/dL (74-106); Potassium 5.1 mmol/L (3.5-5.1); Sodium 134 mmol/L (136-145)
== END 2024-01-07 11:45 | disposition home or self-care (01) ==
LOC: LAB 11:47
PROVIDERS: PCP Family Medicine; Visit Provider Internal Medicine Interventional Cardiology
DX: I10 Essential (primary) hypertension (principal)
CPT/HCPCS: 36415; 80048; 83880; 85025

== ENCOUNTER 2024-01-31 15:13 | Outpatient (OUT) | payer OTHER, MEDICARE, SELFPAY ==
--- OUTSIDE RECORDS SUMMARY | 2024-01-31 15:36 | XMS_ITS | CCD ---
Author Organization [facility] CliniSymi Care Team Providers Care Chemist Steroids Name Role Phone IMAN WILLIS Admitting Unavailable NADERERERASTO Primary Care Unavailable NADERER, [...] Fox Consulting Unavailable DORIS .NARCISA Consulting Unavailable NADYUNI, DR ERASTO Carrera Primary Care Unavailable NADERER, DR ERASTO Carrera Attending Unavailable NADERER, DR ERASTO Carrera Admitting Unavailable ERICA, DR [...] Audrey vailable MANJIT, ORESTES Procedure Practitioner Unavailab davey REYNOSO, DR MIGUE Wild Consulting Unavailable NADERER, DR ERASTO Carrera Consulting Unavailable SAMSA ., ISHAN Procedure Practitioner Unavailab le GRECHNY ., PA ROSI Consulting Unavailabl e MANJIT, ORESTES Consulting Unavailable SAMSA ., ISHAN Consulting Unavailable KLGLENN, ASAEL Consulting Unavailable SCHNERUTHIE, STEPHEN Consulting Unavailable [...] Care Provider MD Remy Givens Attending Provider Remy Givens Attending Unavailable Remy Givens Admitting Unavailable Naderetorri, Erasto Primary Care Unavailable Erasto Burroughs MD Primary Care Provider Ihsan BROWN Attending Unavailable Ihsan BROWN Attending Unavailable Ihsan BROWN Attending Unavailable Iman Jeter Attending Unavaila JER Francis Attending Unavailable KONG BEAULIEU Referring Unavailable MERZA, NOORALDIN Referring Unavailable MERZA, NOORALDIN Referring Unavailable MERZA, NOORALDIN Referring Unavailable AVINASH SERRANO Referring Unavailable KAUSHAL, JAZMIN Admitting Unavailable HORANI, KONG Attending Unavailable JER NEFF Attending Unavailable Allergies Allergy Classification Reported Allergen(s) Allergy Type Date of Onset Reaction(s) Facility (4 sources) Azithromycin; Translations: [AZITHROMYCIN] [facility] Repository (5 sources) Latex; Translations: [Latex] Drug [facility] (disorder) [facility] Repository (1 source) Azithromycin Drug Allergy 2 [facility] Repository (1 source) Latex Drug allergy (disorder) 2 [facility] Repository (1 source) Azithromycin Drug Allergy 3 [facility] (1 source) Latex Allergy to substance 3 [facility] (1 source) Azithromycin; Translations: [Zithromax] Drug Allergy [facility] Repository Medications Current Medications Medication [...] (1 source) Serotonin-3 Receptor Antagonist Start: 03-21-20 23 take 1 tablet by mouth every six [...] mg oral tablet (1 source) Start: 04-06-20 22 take 10 mg by mouth once daily [...] Translations: [Non-ST elevation (NSTEMI) myocardial infarction] Onset: 06-04-20 23 Chronic Chronic obstructive pulmonary disease and bronchiectasis (3 sources) Chronic obstructive pulmonary disease, unspecified; Translations: [Emphysema, unspecified] Onset: 12-19-19 Chronic Coronary atherosclerosis and other heart disease (4 sources) Atherosclerotic heart disease of [place] coronary artery without angina pectoris; Translations: [ATHSCL HEART DISEASE OF [place] CORONARY ARTERY W/O ANG PCTRS] Onset: 03-08-20 Chronic Deficiency and other anemia (1 source) [...] 12-23-19 Chronic Other aftercare (5 sources) Other termite technician (current) drug therapy; Translations: [OTH [facility] CURRENT DRUG THERAPY] Onset: 05-01-20 Episodic Other aftercare (1 source) Post-discharge follow-up; Translations: [Encounter for follow-up examination after completed treatment for conditions other than malignant neoplasm] Onset: 06-14-20 23 06-14-2023 Episodic Other circulatory disease (1 source) Raynaud's syndrome without gangrene; Translations: [RAYNAUDS SYNDROME WITHOUT GANGRENE] Onset: 12-19-19 Chronic Other circulatory disease (2 sources) Other hypotension; Translations: [Other hypotension] Onset: 01-07-20 Episodic Other connective tissue disease (2 sources) Polymyalgia [...] [ARTHROPATHY OTHER BLOOD DISORDERS] Onset: 12-17-19 Chronic Other screening for suspected conditions (not mental disorders or infectious disease) (2 sources) Other specified abnormal findings of blood chemistry; Translations: [Other specified abnormal findings of blood chemistry] Onset: 01-07-20 Episodic Pleurisy; pneumothorax; pulmonary collapse (12 sources) Spontaneous pneumothorax; Translations: [Spontaneous tension pneumothorax] Onset: 03-06-20 Episodic Respiratory failure; insufficiency; arrest (adult) (2 [...] of coronary angioplasty implant and graft] Onset: 06-27-2023 Episodic Deficiency and other anemia (1 source) Other iron deficiency anemias; Translations: [OTHER IRON DEFICIENCY ANEMIAS] Onset: 05-01-2022 Episodic Nutritional deficiencies (1 source) Cachexia; Translations: [CACHEXIA] Onset: 04-04-2022 Episodic Other aftercare (1 source) roasterman (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; Translations: [[facility] CURRENT USE OF ASPIRIN] Onset: 05-01-2022 Episodic Other aftercare (1 source) roasterman (current) use of antithrombotics/an tiplatelets; Translations: [[facility] ANTITHROMBOT/ANTIP LATLETS] Onset: 03-16-2022 Episodic Other circulatory [...] 19.9 OR LESS ADULT] Onset: 04-04-2022 Episodic Pneumonia (except that caused by tuberculosis or sexually transmitted disease) (3 sources) Pneumonia, unspecified organism; Translations: [PNEUMONIA UNSPECIFIED ORGANISM] Onset: 05-01-2022 Episodic Respiratory failure; insufficiency; arrest (adult) (2 sources) Acute respiratory failure with hypoxia; Translations: [ACUTE RESPIRATORY FAILURE WITH HYPOXIA] Onset: 03-08-2022 Episodic Screening and history of mental health and substance abuse codes (1 source) Personal history of nicotine dependence; Translations: [PERSONAL HISTORY OF NICOTINE DEPEND] Onset: 05-01-2022 Episodic Results Test Name Value Interpretation Reference Range Facility Office Visiton 01-07-2024 Follow-up visit [id number] Lizzt,Lise Easton 1955 F Date Provider Department Center 01/07/2024 JER LARRY MARC Kirk Family History Problem Relation Age of Onset Stroke Father Stroke Father's Sister Coronary artery disease Paternal Grandmother Family Status - Relation Status Age at Father Father's Sister Paternal Grandmother Level of Service:09431 MD OFFICE/OUTPATIENT ESTABLISHED MOD MDM 30 MIN Normal [facility] Consent for Procedure/Surger yon 11-12-2023 Consent for Procedure/Surgery [id number] Normal [facility] Patient Educationon 11-09-19 Patient Education Urology Urethral [...] including vitamins, herbs, eye drops, creams, and iilv-kgi-whoiggj medicines. ? Any problems you or family [...] tells you to take them. ? Taking tkhe-kvg-ijaelru medicines, vitamins, herbs, and supplements. General instructions [...] these instructions at home: Medicines ? Take lcak-nuk-yiqilhm and prescription medicines only as told by [...] to prevent or treat constipation: ? Take rrco-woq-hcjjfms or prescription medicines. ? Eat foods that [...] You pa (more content not included)... Normal [facility] Urology Office/Clinic Noteon 11-09-2023 Urology Office/Clinic [...] Tight The Urethra was dilated to: 20-32 Filipino with sounds. Specimens Removed: None Postoperative Information [...] Information KEVIN SALDIVAR, Ihsan Wild, URL [address] [place] [address]- Additional Instructions: 6 mos w/ IO UD Patient Education Urethral Dilation Amanda Sarmiento, personally scribed for Dr. Brown on 11/09/2023 [...] Vitamin D3 (more content not included)... Normal [facility] Comment on above: Result Comment: Elec tronically Signed By: Ihsan BROWN MD\.br\Date and Time Signed: 11/09/23 12:24 EDT\.br\Electronically Co-Signed By: Amanda Camara.br\Date and Time Co-Signed: 11/09/23 12:14 EDT 36on 09-03-2023 36 Home health informed and script sent [facility] Orders Onlyon 08-30-2023 Orders Only [id number] Covert,Lise Easton 1955 F Date Provider Department Center 08/30/2023 RUSH HENNESSY Family History Problem Relation Age of Onset Stroke Father Stroke Father's Sister Coronary artery disease Paternal Grandmother Family Status - Relation Status Age at Father Father's Sister Paternal Grandmother Normal [facility] Office Visiton 06-27-2023 Follow-up visit [id number] Covert,Lise Easton 1955 F Date Provider Department Center 06/27/2023 JER LARRYevue Hos Family History Problem Relation Age of Onset Stroke Father Stroke Father's Sister Coronary artery disease Paternal Grandmother Family Status - Relation Status Age at Father Father's Sister Paternal Grandmother Level of Service:70660 MD OFFICE/OUTPATIENT ESTABLISHED LOW MDM 20 MIN Normal [facility] 30on 06-06-2023 30 The patient is [...] symptoms for stability, deterioration, or improvement Normal [facility] BASIC METABOLIC PANELon 05-10 Anion gap [Moles/Vol] 9 mmol/L Normal 7-20 [facility] Comment on above: Performed By: #### L [id number] #### [facility] ([facility]) [address] [place] [address] Calcium [Mass/Vol] 8.3 mg/dL Low 8.6-10.3 [facility] Comment on above: Performed By: #### L [id number] #### [facility] ([facility]) [address] [place] [address] Chloride [Moles/Vol] 99 mmol/L Normal 98-107 [facility] Comment on above: Performed By: #### L [id number] #### [facility] ([facility]) [address] [place] [address] CO2 [Moles/Vol] 26 mmol/L Normal 21-31 [facility] Comment on above: Performed By: #### L [id number] #### [facility] ([facility]) [address] [place] [address] Creatinine [Mass/Vol] 0.72 mg/dL Normal 0.60-1.20 [facility] Comment on above: Performed By: #### L [id number] #### [facility] ([facility]) [address] [place] [address] GLOMERULAR FILTRATION RATE ML/MIN/1.73 SQ M.PREDICTED 92.2 mL/min/1.73m*2 Normal >60.0 [facility] Comment on above: Result Comment: [facility]???s estimated glomerular filtration rate (eGFR) will [...] group of individuals. Performed By: #### L [id number] #### [facility] ([facility]) [address] [place] [address] Glucose [Mass/Vol] 107 mg/dL High 70-100 [facility] Comment on above: Performed By: #### L [id number] #### [facility] ([facility]) [address] [place] [address] Potassium [Moles/Vol] 3.9 mmol/L Normal 3.5-5.1 [facility] Comment on above: Performed By: #### L [id number] #### [facility] ([facility]) [address] [place] [address] Sodium [Moles/Vol] 130 mmol/L Low 136-145 [facility] Comment on above: Performed By: #### L [id number] #### [facility] ([facility]) [address] [place] [address] Urea nitrogen [Mass/Vol] 12 mg/dL Normal 7-25 [facility] Comment on above: Performed By: #### L [id number] #### [facility] [address] [place] [address] UREA NITROGEN/CREATININE (MASS RATIO) IN SER/PLAS 16.7 Normal [facility] Comment on above: Performed By: #### L [id number] #### [facility] ([facility]) [address] [place] [address] CBCon 06-06-2023 Erythrocyte distribution width (RBC) [Ratio] 13.4 % Normal 11.5-15.0 [facility] Comment on above: Performed By: #### L [id number] #### [facility] ([facility] [address] [place] [address] ERYTHROCYTE MEAN CORPUSCULAR HEMOGLOBIN CONCENTRATION (G/DL) BY AUTOMATED 33.4 g/dL Normal 32.0-35.0 [facility] Comment on above: Performed By: #### L [id number] #### [facility] ([facility]) [address] [place] [address] Hematocrit (Bld) [Volume fraction] 28.7 % Low 36.0-48.0 [facility] Comment on above: Performed By: #### L [id number] #### [facility] ([facility]) [address] [address] Hemoglobin (Bld) [Mass/Vol] 9.6 g/dL Low 12.0-15.0 [facility] Comment on above: Performed By: #### L [id number] #### [facility] ([facility]) [address] [place] [address] MCH (RBC) [Entitic mass] 28.2 pg Normal 27.0-33.0 [facility] Comment on above: Performed By: #### L [id number] #### [facility] [address] [place] [address] MCV (RBC) [Entitic vol] 84.4 fL Normal 82.0-98.0 [facility] Comment on above: Performed By: #### L [id number] #### [facility] ([facility]) [address] [place] [address] PLATELETS (10*3/UL) IN BLOOD AUTOMATED COUNT 522 10*3/uL High 150-400 [facility] Comment on above: Performed By: #### L [id number] #### [facility] ([facility]) [address] [place] [address] RBC (Bld) [#/Vol] 3.40 10*6/uL Low 3.80-5.00 [facility] Comment on above: Performed By: #### L [id number] #### [facility] ([facility]) [address] [place] [address] WBC (Bld) [#/Vol] 10.31 10*3/uL Normal 4.00-10.60 [facility] Comment on above: Performed By: #### L [id number] #### [facility] ([facility]) [address] [place] [address] Letter (Out)on 06-06-2023 Letter (Out) [id number] Covert,Lise Easton 1955 F Date Provider Department [place] 06/06/2023 [id number], GENERIC PRO*INIT None Family History Problem Relation Age of Onset Stroke Father Stroke Father's Sister Coronary artery disease Paternal Grandmother Family Status - Relation Status Age at Father Father's Sister Paternal Grandmother Normal [facility] MAGNESIUMon 06-06-2023 Magnesium [Mass/Vol] 1.9 mg/dL Normal 1.9-2.7 [facility] Comment on above: Performed By: #### L [id number] #### [facility] [address] [place] [address] 30on 06-05-2023 30 The patient is Moderately Stable - Low risk of patient condition declining or worsening The patient's goals for the shift include comfort The clinical goals for the shift include stable vitals [facility] 30 Daily Case Managemen t Update Multidisciplinary rounds have been completed. Barriers to Discharge: Transfer from [facility] for chest pain and NSTEMI. TTE ordered. Pending cardio rec. Trop was .06 down to .04. +UTI and Pneumonia. Continue IV Rocephin. Urine and blood cultures pending. Patient is from home with [facility] and 2L home 02 Diet: Dietary Orders [...] your name here: DANIEL GUERIN 06/05/[address] [facility] 30 The patient is Moderately Unstable - Medium risk of patient condition declining or worsening The patient's goals for the shift include comfort The clinical goals for the shift include vss Over the shift, the patient did not make progress toward the following goals. Barriers to progression include . Recommendations to address these barriers include . [facility] 30 The patient is Moderately Stable [...] injury: Assess patient frequently for physical needs [place] fall precautions as indicated by assessment Identify [...] and prevent overall improvement and discharge Normal [facility] ANTI-XA (HEPARIN LEVEL)on HEPARIN UNFRACTIONATED (U/ML) IN PPP BY CHROMOGENIC METHOD <0.10 Invalid Interpretation Code 0.3-0.7 [facility] Comment on above: Order Comment: Check anti-Xa level every 6 hours while on heparin infusion, or per protocol. Result Comment: Lenka roxaban and Apixaban will interfere with the anti Xa assay used to monitor UFH and LMWH. Performed By: #### L [id number] #### [facility] ([facility]) [address] [place] [address] HEPARIN UNFRACTIONATED (U/ML) IN PPP BY CHROMOGENIC METHOD <0.10 Invalid Interpretation Code 0.3-0.7 [facility] Comment on above: Order Comment: Check anti-Xa level every 6 hours while on heparin infusion, or per protocol. Result Comment: Lenka roxaban and Apixaban will interfere with the anti Xa assay used to monitor UFH and LMWH. Performed By: #### L [id number] #### [facility] ([facility]) [address] [place] [address] APTTon 06-05-2023 ACTIVATED PARTIAL THROMBOPLASTIN TIME IN PPP BY COAGULATION ASSAY 38.8 Seconds High 25.0-35.0 [facility] Comment on above: Result Comment: Clin ical significance of the APTT is questionable in the presence of heparin. Performed By: #### L [id number] #### [facility] ([facility]) [address] [place] [address] B-TYPE NATRIURETIC PEPTIDEon 06-05-2023 Natriuretic peptide B (Bld) [Mass/Vol] 136 pg/mL High 0-100 [facility] Comment on above: Performed By: #### L [id number] #### [facility] ([facility]) [address] [place] [address] BLOOD CULTUREon 06-05-2023 Bacteria identified Cx Nom (Bld) No growth at 5 days Normal [facility] Comment on above: Order Comment: From a different site than #1. Performed By: #### L [id number] ####[facility] ([facility])[address] [place] [address] CBC WITH AUTO DIFFERENTIALon 06-05-2023 Basophils (Bld) [#/Vol] 0.05 10*3/uL Normal 0.00-0.20 [facility] Comment on above: Performed By: #### L [id number] #### [facility] ([facility]) [address] [place] [address] Basophils/100 WBC (Bld) 0.3 % Normal 0.0-1.0 [facility] Comment on above: Performed By: #### L [id number] #### [facility] [address] [place] [address] Eosinophils (Bld) [#/Vol] 0.02 10*3/uL Normal 0.00-0.50 [facility] Comment on above: Performed By: #### L [id number] #### [facility] ([facility] [address] [place] [address] Eosinophils/100 WBC (Bld) 0.1 % Normal 0.0-6.0 [facility] Comment on above: Performed By: #### L [id number] #### [facility] ([facility]) [address] [place] [address] Erythrocyte distribution width (RBC) [Ratio] 13.3 % Normal 11.5-15.0 [facility] Comment on above: Performed By: #### L [id number] #### [facility] ([facility] [address] [place] [address] ERYTHROCYTE MEAN CORPUSCULAR HEMOGLOBIN CONCENTRATION (G/DL) BY AUTOMATED 32.4 g/dL Normal 32.0-35.0 [facility] Comment on above: Performed By: #### L [id number] #### [facility] ([facility]) [address] [place] [address] Hematocrit (Bld) [Volume fraction] 35.8 % Low 36.0-48.0 [facility] Comment on above: Performed By: #### L [id number] #### [facility] ([facility]) [address] [place] [address] Hemoglobin (Bld) [Mass/Vol] 11.6 g/dL Low 12.0-15.0 [facility] Comment on above: Performed By: #### L [id number] #### [facility] [address] [place] [address] Immature granulocytes (Bld) [#/Vol] 0.17 10*3/uL Normal 0.00-0.20 [facility] Comment on above: Performed By: #### L [id number] #### [facility] ([facility]) [address] [place] [address] Immature granulocytes/100 WBC (Bld) 1.0 % Normal 0.0-1.0 [facility] Comment on above: Performed By: #### L [id number] #### [facility] ([facility]) [address] [place] [address] Lymphocytes (Bld) [#/Vol] 0.80 10*3/uL Low 1.20-4.00 [facility] Comment on above: Performed By: #### L [id number] #### [facility] ([facility]) [address] [place] [address] Lymphocytes/100 WBC (Bld) 4.6 % Low 20.0-45.0 [facility] Comment on above: Performed By: #### L [id number] #### [facility] ([facility]) [address] [place] [address] MCH (RBC) [Entitic mass] 28.3 pg Normal 27.0-33.0 [facility] Comment on above: Performed By: #### L [id number] #### [facility] [address] [place] [address] MCV (RBC) [Entitic vol] 87.3 fL Normal 82.0-98.0 [facility] Comment on above: Performed By: #### L [id number] #### [facility] ([facility]) [address] [place] [address] Monocytes (Bld) [#/Vol] 0.78 10*3/uL Normal 0.10-1.00 [facility] Comment on above: Performed By: #### L [id number] #### [facility] ([facility]) [address] [place] [address] Monocytes/100 WBC (Bld) 4.5 % Low 5.0-12.0 [facility] Comment on above: Performed By: #### L [id number] #### [facility] ([facility]) [address] [place] [address] Neutrophils (Bld) [#/Vol] 15.46 10*3/uL High 1.60-7.60 [facility] Comment on above: Performed By: #### L [id number] #### [facility] ([facility]) [address] [place] [address] Neutrophils/100 WBC (Bld) 89.5 % High 40.0-72.0 [facility] Comment on above: Performed By: #### L [id number] #### [facility] ([facility]) [address] [place] [address] NRBC (PER 100 WBCS) BY AUTOMATED COUNT 0.0 % Normal 0 [facility] Comment on above: Performed By: #### L [id number] #### [facility] ([facility]) [address] [place] [address] PLATELETS (10*3/UL) IN BLOOD AUTOMATED COUNT 517 10*3/uL High 150-400 [facility] Comment on above: Performed By: #### L [id number] #### [facility] ([facility]) [address] [place] [address] RBC (Bld) [#/Vol] 4.10 10*6/uL Normal 3.80-5.00 [facility] Comment on above: Performed By: #### L [id number] #### [facility] [address] [place] [address] WBC (Bld) [#/Vol] 17.28 10*3/uL High 4.00-10.60 [facility] Comment on above: Performed By: #### L [id number] #### [facility] [address] [place] [address] COMPREHENSIVE METABOLIC PANE [place] 06-05-2023 ALANINE AMINOTRANSFERASE (SGPT) (U/L) IN SER/PLAS <3 Low 7-52 [facility] Comment on above: Performed By: #### L [id number] #### [facility] ([facility]) [address] [place] [address] Albumin [Mass/Vol] 3.1 g/dL Low 3.5-5.7 [facility] Comment on above: Performed By: #### L [id number] #### [facility] ([facility]) [address] [place] [address] ALP [Catalytic activity/Vol] 83 U/L Normal 34-104 [facility] Comment on above: Performed By: #### L [id number] #### [facility] ([facility]) [address] [place] [address] Anion gap [Moles/Vol] 13 mmol/L Normal 7-20 [facility] Comment on above: Performed By: #### L [id number] #### [facility] ([facility]) [address] [place] [address] AST [Catalytic activity/Vol] 14 U/L Normal 13-39 [facility] Comment on above: Performed By: #### L [id number] #### [facility] ([facility]) [address] [place] [address] Bilirubin [Mass/Vol] 0.3 mg/dL Normal 0.3-1.0 [facility] Comment on above: Performed By: #### L [id number] #### [facility] ([facility]) [address] [place] [address] Calcium [Mass/Vol] 8.9 mg/dL Normal 8.6-10.3 [facility] Comment on above: Performed By: #### L [id number] #### [facility] ([facility]) [address] [place] [address] Chloride [Moles/Vol] 98 mmol/L Normal 98-107 [facility] Comment on above: Performed By: #### L [id number] #### [facility] ([facility]) [address] [place] [address] CO2 [Moles/Vol] 25 mmol/L Normal 21-31 [facility] Comment on above: Performed By: #### L [id number] #### [facility] ([facility]) [address] [place] [address] Creatinine [Mass/Vol] 0.96 mg/dL Normal 0.60-1.20 [facility] Comment on above: Performed By: #### L [id number] #### [facility] ([facility]) [address] [place] [address] GLOMERULAR FILTRATION RATE ML/MIN/1.73 SQ M.PREDICTED 65.3 mL/min/1.73m*2 Normal >60.0 [facility] Comment on above: Result Comment: [facility]???s estimated glomerular filtration rate (eGFR) will [...] group of individuals. Performed By: #### L [id number] #### [facility] ([facility]) [address] [place] [address] Glucose [Mass/Vol] 93 mg/dL Normal 70-100 [facility] Comment on above: Performed By: #### L [id number] #### [facility] ([facility]) [address] [place] [address] Potassium [Moles/Vol] 3.3 mmol/L Low 3.5-5.1 [facility] Comment on above: Performed By: #### L [id number] #### [facility] (BE[facility]) [address] [address] Protein [Mass/Vol] 5.7 g/dL Low 6.0-8.3 [facility] Comment on above: Performed By: #### L [id number] #### [facility] ([facility]) [address] [facility] [place] [address] Sodium [Moles/Vol] 133 mmol/L Low 136-145 [facility] Comment on above: Performed By: #### L [id number] #### [facility] ([facility]) [address] [place] [address] Urea nitrogen [Mass/Vol] 12 mg/dL Normal 7-25 [facility] Comment on above: Performed By: #### L [id number] #### [facility] ([facility]) [address] [place] [address] UREA NITROGEN/CREATININE (MASS RATIO) IN SER/PLAS 12.5 Normal [facility] Comment on above: Performed By: #### L [id number] #### [facility] [address] [place] [address] CONSULTon 06-05-2023 CONSULT - Attestation signed by [...] Nausea / Vomiting and Urinary symptoms to [facility], there she was found to have UTI, labs showed WBC of 17 and she was started on IV antibiotics, work up also showed high sensitive troponin of 62, She doesn't report any chest pain, or discomfort. She was started on heparin drip and was transferred here to [facility]. Today she reports no chest [...] -- 87 16 100 % -- -- 06/05/23227 -- -- -- 99 -- -- -- -- 06/05/2317 -- -- -- -- -- -- 1.626 [...] bilaterally. NEURO: (more content not included)... Normal [facility] ETHANOLon 06-05-2023 ETHANOL (MG/DL) IN SER/PLAS <10 Normal [facility] Comment on above: Performed By: #### L [id number] #### [facility] ([facility]) [address] [place] [address] ETHANOL CALCULATED (%) Normal [facility] Comment on above: Performed By: #### L [id number] #### [facility] ([facility]) [address] [place] [address] HEMOGLOBIN A1Con 06-05-2023 Glucose [Mass/Vol] 160 mg/dL Normal [facility] Comment on above: Performed By: #### L [id number] ####[facility] (BE[facility]ER)[address] [place] [address] HbA1c (Bld) [Mass fraction] 7.2 % High 4.0-6.0 [facility] Comment on above: Performed By: #### L [id number] ####[facility] ([facility]ER)[address] [place] [address] LACTIC ACID WITH 4 HOUR REFL EXon 06-05-2023 LACTATE (MMOL/L) IN SER/PLAS 1.1 mmol/L Normal 0.5-2.2 [facility] Comment on above: Performed By: #### L [id number] #### [facility] ([facility]) [address] [place] [address] LEGIONELLA ANTIGEN, URINEon 06-05-2023 LEGIONELLA AG, UR Negative Normal NEG [facility] Comment on above: Result Comment: L. p neumophila serogroup 1 antigen not detected. A negative result does not exclude infection with Leginella pnemophila serogroup 1 nor does it rule out other microbial-caused respiratory infections of disease caused by other serogroups of Legionella pneumophila. Test Performed by [facility] [address] [place] [address] - Released 06/05/2023 12:36 Performed By: #### L [id number] #### [facility] [address] [place] [address] LIPID PANELon 06-05-2023 CHOL/HDL 1.6 mg/dL Normal [facility] Comment on above: Performed By: #### L [id number] #### [facility] ([facility]) [address] [place] [address] Cholesterol [Mass/Vol] 74 mg/dL Low 120-200 [facility] Comment on above: Performed By: #### L [id number] #### [facility] ([facility]) [address] [place] [address] Magnesium [Mass/Vol] 65 mg/dL Normal 40-149 [facility] Comment on above: Result Comment: TRIG LYCERIDE REFERENCE RANGE: 20 YEARS AND OLDER CARDIOVASCULAR RISK LESS THAN 150 mg/dL LOW RISK 150 TO 199 mg/dL BORDERLINE RISK 200 mg/dL AND GREATER HIGH RISK Performed By: #### L [id number] #### [facility] ([facility]) [address] [place] [address] Magnesium [Mass/Vol] 14 mg/dL Normal 0-160 [facility] Comment on above: Performed By: #### L [id number] #### [facility] ([facility]) [address] [place] [address] Magnesium [Mass/Vol] 47 mg/dL Normal 23-92 [facility] Comment on above: Performed By: #### L [id number] #### [facility] ([facility]) [address] [place] [address] NON HDL CHOL. (LDL+VLDL) 27 Normal [facility] Comment on above: Performed By: #### L [id number] #### [facility] ([facility]) [address] [facility] [place] [address] TOTAL VLDL-C 13 mg/dL Normal 0-40 [facility] Comment on above: Performed By: #### L [id number] #### [facility] ([facility]) [address] [facility] [place] [address] MAGNESIUMon 06-05-2023 Magnesium [Mass/Vol] 1.1 mg/dL Low 1.9-2.7 [facility] Comment on above: Performed By: #### L [id number] #### [facility] ([facility]) [address] [place] [address] PHOSPHORUSon 06-05-2023 Magnesium [Mass/Vol] 2.8 mg/dL Normal 2.5-5.0 [facility] Comment on above: Performed By: #### L [id number] #### [facility] ([facility]) [address] [place] [address] PROTIME-INRon 06-05-2023 INR IN PPP BY COAGULATION ASSAY 1.25 High 0.90-1.10 [facility] Comment on above: Result Comment: ACCC [...] RANGE. CHEST 1995;[id number]. Performed By: #### L [id number] #### [facility] ([facility]) [address] [place] [address] PROTHROMBIN TIME (PT) IN PPP BY COAGULATION ASSAY 15.7 Seconds High 12.3-14.8 [facility] Comment on above: Performed By: #### L [id number] #### [facility] ([facility]) [address] [facility] [place] [address] TOXICOLOGY PANEL URINEon AMPHETAMINE+METHAMPHE TAMINE SCREEN (PRESENCE) IN URINE Negative Normal Negative [facility] Comment on above: Performed By: #### L [id number] ####[facility] ([facility])[address] [facility] [place] [address] BARBITURATES PRESENCE IN URINE BY SCREEN METHOD Negative Normal Negative [facility] Comment on above: Performed By: #### L [id number] ####[facility] ([facility])[address] [place] [address] Benzodiazepines Ql (U) Negative Normal Negative [facility] Comment on above: Performed By: #### L [id number] ####[facility] ([facility])[address] [facility] [place] [address] CANNABINOID (PRESENCE) IN URINE BY SCREEN METHOD Negative Normal Negative [facility] Comment on above: Performed By: #### L [id number] ####[facility] ([facility])[address] [place] [address] Cocaine Ql (U) Negative Normal Negative [facility] Comment on above: Performed By: #### L [id number] ####[facility] ([facility])[address] [place] [address] METHADONE (PRESENCE) IN URINE BY SCREEN METHOD Negative Normal Negative [facility] Comment on above: Performed By: #### L [id number] ####[facility] ([facility])[address] [place] [address] OPIATES (PRESENCE) IN URINE BY SCREEN METHOD Positive Abnormal Negative [facility] Comment on above: Performed By: #### L [id number] ####[facility] ([facility])[address] [place] [address] PHENCYCLIDINE PRESENCE IN URINE BY SCREEN METHOD Negative Normal Negative [facility] Comment on above: Performed By: #### L [id number] ####[facility] ([facility])[address] [place] [address] Propoxyphene Screen Ql (U) Negative Normal Negative [facility] Comment on above: Performed By: #### L [id number] ####[facility] ([facility])[address] [place] [address] TRICYCLIC ANTIDEPRESSANTS (PRESENCE) IN URINE Negative Normal Negative [facility] Comment on above: Performed By: #### L [id number] ####[facility] ([facility])[address] [place] [address] TROPONIN Ion 06-05-2023 Troponin I.cardiac [Mass/Vol] 0.04 ng/mL Normal 0.00-0.04 [facility] Comment on above: Performed By: #### L [id number] #### [facility] ([facility]) [address] [place] [address] Troponin I.cardiac [Mass/Vol] 0.06 ng/mL High 0.00-0.04 [facility] Comment on above: Performed By: #### L [id number] ####[facility] ([facility])[address] [place] [address] TSH3 REFLEX TO FT4on 023 THYROTROPIN (MIU/L) IN SER/PLAS BY DETECTION LIMIT <= 0.05 MIU/L 1.46 mIU/L Normal 0.34-5.60 [facility] Comment on above: Performed By: #### L [id number] ####[facility] ([facility])[address] [place] [address] URINALYSIS MICROSCOPIC WITH REFLEX CULTUREon 06-05-2023 CASTS IN URINE Normal [facility] Comment on above: Performed By: #### L [id number] ####[facility] ([facility])[address] [place] [address] CRYSTALS IN URINE Normal [facility] Comment on above: Performed By: #### L [id number] ####[facility] ([facility])[address] [place] [address] OTHER MICROSCOPIC ELEMENTS Normal [facility] Comment on above: Performed By: #### L [id number] ####[facility] ([facility])[address] [place] [address] RBC (#/HPF) IN URINE SEDIMENT 6-10 Abnormal None Seen [facility] Comment on above: Performed By: #### L [id number] ####[facility] ([facility]ER)[address] [place] [address] SQUAMOUS EPITHELIAL CELLS (#/HPF) IN URINE SEDIMENT Many Abnormal None Seen, Occasional [facility] Comment on above: Performed By: #### L [id number] ####[facility] ([facility]ER)[address] [place] [address] WBC (LEUKOCYTE) (#/HPF) IN URINE SEDIMENT >100 Abnormal None Seen [facility] Comment on above: Performed By: #### L [id number] ####[facility] ([facility]ER)[address] [place] [address] URINALYSIS WITH REFLEX CULTU REon 06-05-2023 BILIRUBIN, TOTAL PRESENCE IN URINE Negative Normal Negative [facility] Comment on above: Performed By: #### L [id number] ####[facility] ([facility]ER)[address] [place] [address] Clarity (U) Clear Normal Clear [facility] Comment on above: Performed By: #### L [id number] ####[facility] ([facility])[address] [place] [address] Color (U) Yellow Normal Yellow [facility] Comment on above: Performed By: #### L [id number] ####[facility] ([facility])[address] [place] [address] Glucose (U) [Mass/Vol] Negative Normal Negative [facility] Comment on above: Performed By: #### L [id number] ####[facility] ([facility])[address] [place] [address] HEMOGLOBIN PRESENCE IN URINE Moderate Abnormal Negative [facility] Comment on above: Performed By: #### L [id number] ####[facility] ([facility])[address] [place] [address] Ketones Ql (U) Trace Abnormal Negative [facility] Comment on above: Performed By: #### L [id number] ####[facility] ([facility])[address] [place] [address] LEUKOCYTE ESTERASE PRESENCE IN URINE BY TEST STRIP Large Abnormal Negative [facility] Comment on above: Performed By: #### L [id number] ####[facility] ([facility])[address] [place] [address] NITRITE PRESENCE IN URINE Positive Abnormal Negative [facility] Comment on above: Performed By: #### L [id number] ####[facility] ([facility])[address] [place] [address] pH (U) 6.0 [pH] Normal 5.0-8.0 [facility] Comment on above: Performed By: #### L [id number] ####[facility] ([facility])[address] [place] [address] Protein (U) [Mass/Vol] 30 mg/dL Abnormal Negative [facility] Comment on above: Performed By: #### L [id number] ####[facility] ([facility])[address] [place] [address] Specific gravity (U) [Rel density] 1.012 Low 1.015-1.020 [facility] Comment on above: Performed By: #### L [id number] ####[facility] ([facility]ER)[address] [place] [address] 30on 06-04-2023 30 The patient is Moderately Stable - Low risk of patient condition declining or worsening The patient's goals for the shift include comfort The clinical goals for the shift include VSS Normal [facility] Consent for Procedure/Surger yon 04-17-2023 Consent for Procedure/Surgery [id number] Normal [facility] Patient Educationon 04-16-20 23 Patient Education Urology [...] including vitamins, herbs, eye drops, creams, and ogtg-pyd-ojakqgj medicines. ? Any problems you or family [...] tells you to take them. ? Taking rcpc-mzh-yiukquu medicines, vitamins, herbs, and supplements. General instructions [...] these instructions at home: Medicines ? Take qpbp-tac-abgwwtp and prescription medicines only as told by [...] to prevent or treat constipation: ? Take dvby-mdp-dhlpjnv or prescription medicines. ? Eat foods that [...] You pa (more content not included)... Normal [facility] Urology Office/Clinic Noteon 04-16-2023 Urology Office/Clinic Note [...] inflamed The Urethra was dilated to: 20-30 Filipino with sounds. Specimens Removed: None Postoperative Information [...] today. Follow-up With When Contact Information KEVIN SALIDVAR, WOLFGANG Morrell In 4 months [facility] [address], [place] [address]- Additional Instructions: w/UD Patient Education Urethral Dilation [...] Procedure/Surgical Histo (more content not included)... Normal [facility] Comment on above: Result Comment: Elec tronically [...] Date: 2022-10-31 17:34 Normal [facility] HEMOGLOBINon 10-31-2022 Hemoglobin (Bld) [Mass/Vol] 11.8 g/dL Critically low 12.0-16.0 [facility] Comment on above: Performed By: #### C VDTB #### [facility] [address] [place] [address] Dr. Kayley Hatfield BUNon 10-10-2022 Urea nitrogen [Mass/Vol] 13.0 mg/dL Normal 7.0-18.0 [facility] Comment on above: Performed By: #### L DH #### [facility] [address] [place] [address] Dr. Kayley Hatfield CALCIUMon 10-10-2022 Calcium [Mass/Vol] 9.7 mg/dL Normal 8.5-10.1 [facility] Comment on above: Performed By: #### L DH #### [facility] [address] [place] [address] Dr. Kayley Hatfield CREATININEon 10-10-2022 Creatinine [Mass/Vol] 1.19 mg/dL Critically high 0.55-1.02 [facility] Comment on above: Performed By: #### L DH #### [facility] [address] [place] [address] Dr. Kayley Hatfield EGFR-AF NEW ZEALANDER 55 mL/min/1.73m2 Critically low >=60 [facility] Comment on above: Performed By: #### L DH #### [facility] [address] [place] [address] Dr. Kayley Hatfield EGFR-NON AF NEW ZEALANDER 46 mL/min/1.73m2 Critically low >=60 [facility] Comment on above: Performed By: #### L DH #### [facility] [address] [place] [address] Dr. Kayley Hatfield CRPon 10-10-2022 CRP [Mass/Vol] mg/L Normal <=1.0 [facility] Comment on above: Performed By: #### L DH #### [facility] [address] [place] [address] Dr. Kayley Hatfield MAGNESIUMon 10-10-2022 Magnesium [Mass/Vol] 1.7 mg/dL Critically low 1.8-2.4 [facility] Comment on above: Performed By: #### L DH #### [facility] [address] [place] [address] Dr. Kayley Hatfield PHOSPHORUSon 10-10-2022 Phosphate [Mass/Vol] 4.0 mg/dL Normal 2.6-4.7 [facility] Comment on above: Performed By: #### L DH #### [facility] [address] [place] [address] Dr. Kayley Hatfield SED RATE LANESBOROUGHERGRENon 2022 SED RATE 25 mm/hr Normal <=30 [facility] Comment on above: Performed By: #### P RTELEC #### [facility] [address] [place] [address] Dr. Kayley Hatfield CBC AUTO DIFFon 05-01-2022 BASO # 0.1 103/ul Normal 0.0-0.1 [facility] Comment on above: Performed By: #### P RBC #### [facility] [address] [place] [address] Dr. Kayley Hatfield Basophils/100 WBC (Bld) 0.5 % Normal 0.2-2.0 [facility] Comment on above: Performed By: #### P RBC #### [facility] [address] [place] [address] Dr. Kayley Hatfield EO # 0.2 103/ul Normal 0.0-0.7 [facility] Comment on above: Performed By: #### P RBC #### [facility] [address] [place] [address] Dr. Kayley Hatfield Eosinophils/100 WBC (Bld) 1.2 % Normal 0.9-7.0 [facility] Comment on above: Performed By: #### P RBC #### [facility] [address] [place] [address] [address] Kayley Hatfield Erythrocyte distribution width (RBC) [Ratio] 14.9 % Normal 11.0-15.0 [facility] Comment on above: Performed By: #### P RBC #### [facility] [address] [place] [address] Dr. Kayley Hatfield Hematocrit (Bld) [Volume fraction] 34.2 % Critically low 36.0-48.0 [facility] Comment on above: Performed By: #### P RBC #### [facility] [address] [place] [address] Dr. Kayley Hatfield Hemoglobin (Bld) [Mass/Vol] 10.3 g/dL Critically low 12.0-16.0 [facility] Comment on above: Performed By: #### P RBC #### [facility] [address] [place] [address] Dr. Kayley Hatfield IG # 0.19 10e3/ul Critically high 0.00-0.03 [facility] Comment on above: Performed By: #### P RBC #### [facility] [address] [place] [address] Dr. Kayley Hatfield IG % 1.3 % Critically high 0.0-0.5 [facility] Comment on above: Performed By: #### P RBC #### [facility] [address] [place] [address] Dr. Kayley Hatfield LYMPH # 1.1 103/ul Critically low 1.2-3.8 [facility] Comment on above: Performed By: #### P RBC #### [facility] [address] [place] [address] Dr. Kayley Hatfield Lymphocytes/100 WBC (Bld) 7.3 % Critically low 20.5-60.0 [facility] Comment on above: Performed By: #### P RBC #### [facility] [address] [place] [address] Dr. Kayley Hatfield MANUAL DIFF REQ NO Normal [facility] Comment on above: Performed By: #### P RBC #### [facility] [address] [address] [address] Kayley Hatfield MCH (RBC) [Entitic mass] 28.4 pg Normal 26.7-34.0 [facility] Comment on above: Performed By: #### P RBC #### [facility] [address] [place] [address] [address] Kayley Hatfield MCHC (RBC) [Mass/Vol] 30.1 g/dL Normal 29.9-35.2 [facility] Comment on above: Performed By: #### P RBC #### [facility] [address] [address] [address] Kayley Hatfield MCV (RBC) [Entitic vol] 94.2 fL Normal 81.0-99.0 [facility] Comment on above: Performed By: #### P RBC #### [facility] [address] [place] [address] Dr. Kayley Hatfield MONO # 0.6 103/ul Normal 0.3-0.8 [facility] Comment on above: Performed By: #### P RBC #### [facility] [address] [place] [address] Dr. Kayley Hatfield Monocytes/100 WBC (Bld) 4.0 % Normal 1.7-12.0 [facility] Comment on above: Performed By: #### P RBC #### [facility] [address] [place] [address] [address] Kayley Hatfield NEUT # 12.5 103/ul Critically high 1.4-6.5 [facility] Comment on above: Performed By: #### P RBC #### [facility] [address] [address] [address] Kayley Hatfield Neutrophils/100 WBC (Bld) 85.7 % Critically high 43.0-75.0 [facility] Comment on above: Performed By: #### P RBC #### [facility] [address] [place] [address] Dr. Kayley Hatfield Platelet mean volume (Bld) [Entitic vol] 8.5 fL Critically low 9.5-13.5 [facility] Comment on above: Performed By: #### P RBC #### [facility] [address] [place] [address] Dr. Kayley Hatfield PLT 574 103/ul Critically high 150-450 [facility] Comment on above: Performed By: #### P RBC #### [facility] [address] [place] [address] Dr. Kayley Hatfield RBC 3.63 106/ul Critically low 4.20-5.40 [facility] Comment on above: Performed By: #### P RBC #### [facility] [address] [place] [address] Dr. Kayley Hatfield WBC 14.6 103/ul Critically high 4.0-11.0 [facility] Comment on above: Performed By: #### P RBC #### [facility] [address] [place] [address] Dr. Kayley Hatfield MAGNESIUMon 05-01-2022 Magnesium [Mass/Vol] 2.1 mg/dL Normal 1.8-2.4 [facility] Comment on above: Performed By: #### O BSCRN #### [facility] [address] [place] [address] Dr. Kayley Hatfield PROF CHEM 8 (BAS METB)on Anion gap [Moles/Vol] 8.6 mmol/L Normal [facility] Comment on above: Performed By: #### O BSCRN #### [facility] [address] [place] [address] Dr. Kayley Hatfield Calcium [Mass/Vol] 9.0 mg/dL Normal 8.5-10.1 [facility] Comment on above: Performed By: #### O BSCRN #### [facility] [address] [place] [address] Dr. Kayley Hatfield Chloride [Moles/Vol] 101 mmol/L Normal 98-107 [facility] Comment on above: Performed By: #### O BSCRN #### [facility] [address] [place] [address] Dr. Kayley Hatfield CO2 [Moles/Vol] 33.0 mmol/L Critically high 21.0-32.0 [facility] Comment on above: Performed By: #### O BSCRN #### [facility] [address] [address] [address] Kayley Hatfield Creatinine [Mass/Vol] 0.94 mg/dL Normal 0.55-1.02 [facility] Comment on above: Performed By: #### O BSCRN #### [facility] [address] [address] [address] Kayley Hatfield EGFR-AF NEW ZEALANDER >60 Normal >=60 [facility] Comment on above: Performed By: #### O BSCRN #### [facility] [address] [place] [address] Dr. Kayley Hatfield EGFR-NON AF NEW ZEALANDER >60 Normal >=60 [facility] Comment on above: Performed By: #### O BSCRN #### [facility] [address] [address] [address] Kayley Hatfield Glucose [Mass/Vol] 143 mg/dL Critically high 74-106 [facility] Comment on above: Performed By: #### O BSCRN #### [facility] [address] [address] [address] Kayley Hatfield Potassium [Moles/Vol] 4.6 mmol/L Normal 3.5-5.1 [facility] Comment on above: Performed By: #### O BSCRN #### [facility] [address] [address] [address] Kayley Hatfield Sodium [Moles/Vol] 138 mmol/L Normal 136-145 [facility] Comment on above: Performed By: #### O BSCRN #### [facility] [address] [address] [address] Kayley Hatfield Urea nitrogen [Mass/Vol] 15.0 mg/dL Normal 7.0-18.0 [facility] Comment on above: Performed By: #### O BSCRN #### [facility] [address] [address] [address] Kayley Hatfield Urea nitrogen/Creatinine [Mass ratio] 16.0 mg/mg Normal [facility] Comment on above: Performed By: #### O BSCRN #### [facility] [address] [place] [address] Dr. Kayley Hatfield CBC AUTO DIFFon 04-26-2022 BASO # 0.1 103/ul Normal 0.0-0.1 [facility] Comment on above: Performed By: #### P RBC #### [facility] [address] [place] [address] Dr. Kayley Hatfield Basophils/100 WBC (Bld) 0.5 % Normal 0.2-2.0 [facility] Comment on above: Performed By: #### P RBC #### [facility] [address] [place] [address] Dr. Kayley Hatfield EO # 0.2 103/ul Normal 0.0-0.7 [facility] Comment on above: Performed By: #### P RBC #### [facility] [address] [place] [address] Dr. Kayley Hatfield Eosinophils/100 WBC (Bld) 1.8 % Normal 0.9-7.0 [facility] Comment on above: Performed By: #### P RBC #### [facility] [address] [place] [address] Dr. Kayley Hatfield Erythrocyte distribution width (RBC) [Ratio] 14.7 % Normal 11.0-15.0 [facility] Comment on above: Performed By: #### P RBC #### [facility] [address] [place] [address] Dr. Kayley Hatfield Hematocrit (Bld) [Volume fraction] 32.0 % Critically low 36.0-48.0 [facility] Comment on above: Performed By: #### P RBC #### [facility] [address] [place] [address] Dr. Kayley Hatfield Hemoglobin (Bld) [Mass/Vol] 9.9 g/dL Critically low 12.0-16.0 [facility] Comment on above: Performed By: #### P RBC #### [facility] [address] [place] [address] Dr. Kayley Hatfield IG # 0.07 10e3/ul Critically high 0.00-0.03 [facility] Comment on above: Performed By: #### P RBC #### [facility] [address] [place] [address] Dr. Kayley Hatfield IG % 0.6 % Critically high 0.0-0.5 [facility] Comment on above: Performed By: #### P RBC #### [facility] [address] [address] [address] Kayley Hatfield LYMPH # 1.2 103/ul Normal 1.2-3.8 [facility] Comment on above: Performed By: #### P RBC #### [facility] [address] [place] [address] Dr. Kayley Hatfield Lymphocytes/100 WBC (Bld) 10.9 % Critically low 20.5-60.0 [facility] Comment on above: Performed By: #### P RBC #### [facility] [address] [place] [address] Dr. Kayley Hatfield MANUAL DIFF REQ NO Normal [facility] Comment on above: Performed By: #### P RBC #### [facility] [address] [place] [address] Dr. Kayley Hatfield MCH (RBC) [Entitic mass] 28.4 pg Normal 26.7-34.0 [facility] Comment on above: Performed By: #### P RBC #### [facility] [address] [place] [address] Dr. Kayley Hatfield MCHC (RBC) [Mass/Vol] 30.9 g/dL Normal 29.9-35.2 [facility] Comment on above: Performed By: #### P RBC #### [facility] [address] [place] [address] Dr. Kayley Hatfield MCV (RBC) [Entitic vol] 92.0 fL Normal 81.0-99.0 [facility] Comment on above: Performed By: #### P RBC #### [facility] [address] [place] [address] Dr. Kayley Hatfield MONO # 1.4 103/ul Critically high 0.3-0.8 [facility] Comment on above: Performed By: #### P RBC #### [facility] [address] [address] [address] Kayley Hatfield Monocytes/100 WBC (Bld) 11.9 % Normal 1.7-12.0 [facility] Comment on above: Performed By: #### P RBC #### [facility] [address] [address] [address] Kayley Hatfield NEUT # 8.4 103/ul Critically high 1.4-6.5 [facility] Comment on above: Performed By: #### P RBC #### [facility] [address] [place] [address] Dr. Kayley Hatfield Neutrophils/100 WBC (Bld) 74.3 % Normal 43.0-75.0 [facility] Comment on above: Performed By: #### P RBC #### [facility] [address] [place] [address] Dr. Kayley Hatfield Platelet mean volume (Bld) [Entitic vol] 8.8 fL Critically low 9.5-13.5 [facility] Comment on above: Performed By: #### P RBC #### [facility] [address] [place] [address] Dr. Kayley Hatfield PLT 953 103/ul Critically high 150-450 [facility] Comment on above: Performed By: #### P RBC #### [facility] [address] [address] [address] Kayley Hatfield RBC 3.48 106/ul Critically low 4.20-5.40 [facility] Comment on above: Performed By: #### P RBC #### [facility] [address] [address] [address] Kayley Hatfield WBC 11.3 103/ul Critically high 4.0-11.0 [facility] Comment on above: Performed By: #### P RBC #### [facility] [address] [address] [address] Kayley Hatfield POINT OF CARE GLUCOSEon 04-08 Glucose [Mass/Vol] 225 mg/dL Critically high 74-106 [facility] Comment on above: Performed By: #### B [id number] #### [facility] [address] [place] [address] Dr. Kayley Hatfield PROF CHEM 8 (BAS METB)on Anion gap [Moles/Vol] 10.7 mmol/L Normal [facility] Comment on above: Performed By: #### P RBC #### [facility] [address] [place] [address] Dr. Kayley Hatfield Calcium [Mass/Vol] 9.2 mg/dL Normal 8.5-10.1 [facility] Comment on above: Performed By: #### P RBC #### [facility] [address] [place] [address] Dr. Kayley Hatfield Chloride [Moles/Vol] 103 mmol/L Normal 98-107 [facility] Comment on above: Performed By: #### P RBC #### [facility] [address] [place] [address] Dr. Kayley Hatfield CO2 [Moles/Vol] 29.2 mmol/L Normal 21.0-32.0 [facility] Comment on above: Performed By: #### P RBC #### [facility] [address] [place] [address] Dr. Kayley Hatfield Creatinine [Mass/Vol] 0.85 mg/dL Normal 0.55-1.02 [facility] Comment on above: Performed By: #### P RBC #### [facility] [address] [place] [address] Dr. Kayley Hatfield EGFR-AF NEW ZEALANDER >60 Normal >=60 [facility] Comment on above: Performed By: #### P RBC #### [facility] [address] [place] [address] Dr. Kayley Hatfield EGFR-NON AF NEW ZEALANDER >60 Normal >=60 [facility] Comment on above: Performed By: #### P RBC #### [facility] [address] [place] [address] Dr. Kayley Hatfield Glucose [Mass/Vol] 81 mg/dL Normal 74-106 [facility] Comment on above: Performed By: #### P RBC #### [facility] [address] [address] [address] Kayley Hatfield Potassium [Moles/Vol] 3.9 mmol/L Normal 3.5-5.1 [facility] Comment on above: Performed By: #### P RBC #### [facility] [address] [address] [address] Kayley Hatfield Sodium [Moles/Vol] 139 mmol/L Normal 136-145 [facility] Comment on above: Performed By: #### P RBC #### [facility] [address] [address] [address] Kayley Hatfield Urea nitrogen [Mass/Vol] 9.0 mg/dL Normal 7.0-18.0 [facility] Comment on above: Performed By: #### P RBC #### [facility] [address] [address] [address] Kayley Hatfield Urea nitrogen/Creatinine [Mass ratio] 10.6 mg/mg Normal [facility] Comment on above: Performed By: #### P RBC #### [facility] [address] [address] [address] Kayley Hatfield XR CHEST 2 Von [...] Date: 2022-04-26 09:59 Normal [facility] BNPon 04-25-2022 Natriuretic peptide B (Bld) [Mass/Vol] 234.0 pg/mL Normal <=900.0 [facility] Comment on above: Performed By: #### P RTELEC #### [facility] [address] [address] [address] Kayley Hatfield CBC AUTO DIFFon 04-25-2022 BASO # 0.1 103/ul Normal 0.0-0.1 [facility] Comment on above: Performed By: #### P RBC #### [facility] [address] [address] [address] Kayley Hatfield Basophils/100 WBC (Bld) 0.4 % Normal 0.2-2.0 [facility] Comment on above: Performed By: #### P RBC #### [facility] [address] [place] [address] Dr. Kayley Hatfield EO # 0.2 103/ul Normal 0.0-0.7 [facility] Comment on above: Performed By: #### P RBC #### [facility] [address] [address] [address] Kayley Hatfield Eosinophils/100 WBC (Bld) 1.0 % Normal 0.9-7.0 [facility] Comment on above: Performed By: #### P RBC #### [facility] [address] [address] [address] Kayley Hatfield Erythrocyte distribution width (RBC) [Ratio] 14.8 % Normal 11.0-15.0 [facility] Comment on above: Performed By: #### P RBC #### [facility] [address] [address] [address] Kayley Hatfield Hematocrit (Bld) [Volume fraction] 35.4 % Critically low 36.0-48.0 [facility] Comment on above: Performed By: #### P RBC #### [facility] [address] [place] [address] Dr. Kayley Hatfield Hemoglobin (Bld) [Mass/Vol] 10.9 g/dL Critically low 12.0-16.0 [facility] Comment on above: Performed By: #### P RBC #### [facility] [address] [address] [address] Kayley Hatfield IG # 0.08 10e3/ul Critically high 0.00-0.03 [facility] Comment on above: Performed By: #### P RBC #### [facility] [address] [address] [address] Kayley Hatfield IG % 0.5 % Normal 0.0-0.5 [facility] Comment on above: Performed By: #### P RBC #### [facility] [address] [address] [address] Kayley Hatfield LYMPH # 1.2 103/ul Normal 1.2-3.8 [facility] Comment on above: Performed By: #### P RBC #### [facility] [address] [place] [address] Dr. Kayley Hatfield Lymphocytes/100 WBC (Bld) 7.4 % Critically low 20.5-60.0 [facility] Comment on above: Performed By: #### P RBC #### [facility] [address] [address] [address] Kyaley Hatfield MANUAL DIFF REQ NO Normal [facility] Comment on above: Performed By: #### P RBC #### [facility] [address] [place] [address] Dr. Kayley Hatfield MCH (RBC) [Entitic mass] 27.9 pg Normal 26.7-34.0 [facility] Comment on above: Performed By: #### P RBC #### [facility] [address] [place] [address] Dr. Kayley Hatfield MCHC (RBC) [Mass/Vol] 30.8 g/dL Normal 29.9-35.2 [facility] Comment on above: Performed By: #### P RBC #### [facility] [address] [place] [address] Dr. Kayley Hatfield MCV (RBC) [Entitic vol] 90.5 fL Normal 81.0-99.0 [facility] Comment on above: Performed By: #### P RBC #### [facility] [address] [address] [address] Kayley Hatfield MONO # 1.5 103/ul Critically high 0.3-0.8 [facility] Comment on above: Performed By: #### P RBC #### [facility] [address] [address] [address] Kayley Hatfield Monocytes/100 WBC (Bld) 8.7 % Normal 1.7-12.0 [facility] Comment on above: Performed By: #### P RBC #### [facility] [address] [address] [address] Kayley Hatfield NEUT # 13.8 103/ul Critically high 1.4-6.5 [facility] Comment on above: Performed By: #### P RBC #### [facility] [address] [place] [address] Dr. Kayley Hatfield Neutrophils/100 WBC (Bld) 82.0 % Critically high 43.0-75.0 [facility] Comment on above: Performed By: #### P RBC #### [facility] [address] [address] [address] Kayley Hatfield Platelet mean volume (Bld) [Entitic vol] 8.9 fL Critically low 9.5-13.5 [facility] Comment on above: Performed By: #### P RBC #### [facility] [address] [address] [address] Kayley Hatfield PLT 1076 103/ul Critically high 150-450 [facility] Comment on above: Performed By: #### P RBC #### [facility] [address] [address] [address] Kayley Hatfield RBC 3.91 106/ul Critically low 4.20-5.40 [facility] Comment on above: Performed By: #### P RBC #### [facility] [address] [address] [address] Kayley Hatfield WBC 16.8 103/ul Critically high 4.0-11.0 [facility] Comment on above: Performed By: #### P RBC #### [facility] [address] [address] [address] HEAD WO CONon [...] MIGUE REYNOSO Date: 2022-04-25 14:59 Normal [facility] CTA CHEST WO W CONon 022 [...] Date: 2022-04-25 15:18 Normal [facility] Covid-19 PCR (CVDTB)on 04-08 SARS-CoV-2 (COVID-19) RNA ELBA+probe Ql (Unsp spec) Not detected Normal NOT DETECTED [facility] Comment on above: Result Comment: When [...] for this test is supported by the [place] of [employer] and Human Service's declaration that [...] By: #### C VDTBH #### [facility] [address] [place] [address] Dr. Kayley DOBSON URINE PROFILEon 2 Bilirubin Ql (U) Negative Normal NEGATIVE [facility] Comment on above: Performed By: #### C VDTBH #### [facility] [address] [place] [address] Dr. Kayley Hatfield Clarity (U) CLEAR Normal CLEAR [facility] Comment on above: Performed By: #### C VDTBH #### [facility] [address] [place] [address] Dr. Kayley Hatfield Color (U) LT. YELLOW Normal YELLOW [facility] Comment on above: Performed By: #### C VDTBH #### [facility] [address] [place] [address] Dr. Kayley [place] A micrscopic examination will be performed if indicated. Normal [facility] Comment on above: Performed By: #### C VDTBH #### [facility] [address] [place] [address] Dr. Kayley Hatfield Glucose Ql (U) Negative Normal NEGATIVE [facility] Comment on above: Performed By: #### C VDTBH #### [facility] [address] [place] [address] Dr. Kayley Hatfield Hemoglobin Ql (U) TRACE-INTACT Abnormal NEGATIVE [facility] Comment on above: Performed By: #### C VDTBH #### [facility] [address] [place] [address] Dr. Kayley Hatfield Ketones Ql (U) Negative Normal NEGATIVE [facility] Comment on above: Performed By: #### C VDTBH #### [facility] [address] [place] [address] Dr. Kayley Hatfield LEUKOCYTES Negative Normal NEGATIVE [facility] Comment on above: Performed By: #### C VDTBH #### [facility] [address] [place] [address] Dr. Kayley Hatfield Nitrite Ql (U) Negative Normal NEGATIVE [facility] Comment on above: Performed By: #### C VDTBH #### [facility] [address] [address] [address] Kayley Hatfield pH (U) 8.0 [pH] Normal 5-9 [facility] Comment on above: Performed By: #### C VDTBH #### [facility] [address] [place] [address] Dr. Kayley Hatfield SPEC GRAVITY 1.010 Normal 1.005-<=1.025 [facility] Comment on above: Performed By: #### C VDTBH #### [facility] [address] [place] [address] Dr. Kayley Hatfield UA PROTEIN Negative Normal NEGATIVE/ TRACE [facility] Comment on above: Performed By: #### C VDTBH #### [facility] [address] [place] [address] Dr. Kayley Hatfield UR MICRO IND INDICATED Normal [facility] Comment on above: Performed By: #### C VDTBH #### [facility] [address] [place] [address] Dr. Kayley Hatfield Urobilinogen Qn (U) 0.2 {Lu'U}/dL Normal 0.2 - 1. 0 [facility] Comment on above: Performed By: #### C VDTBH #### [facility] [address] [place] [address] Dr. Kayley Hatfield LACTATE/LACTIC ACIDon 2021 Lactate [Moles/Vol] 1.1 mmol/L Normal 0.4-1.9 [facility] Comment on above: Performed By: #### P RTELEC #### [facility] [address] [place] [address] Dr. Kayley Hatfield PH VENOUS BLOODon 04-25-2022 PCO2 VENOUS 54.5 mmHg Critically high 40.0-52.0 [facility] Comment on above: Performed By: #### L DH #### [facility] [address] [place] [address] Dr. Kayley Hatfield pH VENOUS 7.385 Normal 7.330-7.430 [facility] Comment on above: Performed By: #### L DH #### [facility] [address] [address] [address] Kayley Hatfield POINT OF CARE GLUCOSEon 04-08 Glucose [Mass/Vol] 91 mg/dL Normal 74-106 [facility] Comment on above: Performed By: #### O BSCRN #### [facility] [address] [address] [address] Kayley Hatfield Glucose [Mass/Vol] 116 mg/dL Critically high 74-106 [facility] Comment on above: Performed By: #### O BSCRN #### [facility] [address] [place] [address] Dr. Kayley Hatfield PROF 14(COMP METB)on 04-25- 022 Albumin [Mass/Vol] 2.7 g/dL Critically low 3.4-5.0 [facility] Comment on above: Performed By: #### O BSCRN #### [facility] [address] [place] [address] Dr. Kayley Hatfield Albumin/Globulin [Mass ratio] 0.6 {ratio} [facility] Comment on above: Performed By: #### O BSCRN #### [facility] [address] [place] [address] Dr. Kayley Hatfield ALP [Catalytic activity/Vol] 132 U/L Critically high 46-116 [facility] Comment on above: Performed By: #### O BSCRN #### [facility] [address] [place] [address] Dr. Kayley Hatfield ALT [Catalytic activity/Vol] 21 U/L Normal 14-59 [facility] Comment on above: Performed By: #### O BSCRN #### [facility] [address] [place] [address] Dr. Kayley Hatfield Anion gap [Moles/Vol] 8.1 mmol/L Normal [facility] Comment on above: Performed By: #### O BSCRN #### [facility] [address] [place] [address] Dr. Kayley Hatfield AST [Catalytic activity/Vol] 23 U/L Normal 15-37 [facility] Comment on above: Performed By: #### O BSCRN #### [facility] [address] [address] [address] Kayley Hatfield Bilirubin [Mass/Vol] 0.3 mg/dL Normal 0.2-1.0 [facility] Comment on above: Performed By: #### O BSCRN #### [facility] [address] [place] [address] Dr. Kayley Hatfield Calcium [Mass/Vol] 9.4 mg/dL Normal 8.5-10.1 [facility] Comment on above: Performed By: #### O BSCRN #### [facility] [address] [place] [address] Dr. Kayley Hatfield Chloride [Moles/Vol] 100 mmol/L Normal 98-107 [facility] Comment on above: Performed By: #### O BSCRN #### [facility] [address] [place] [address] Dr. Kayley Hatfield CO2 [Moles/Vol] 31.8 mmol/L Normal 21.0-32.0 [facility] Comment on above: Performed By: #### O BSCRN #### [facility] [address] [place] [address] Dr. Kayley Hatfield Creatinine [Mass/Vol] 0.79 mg/dL Normal 0.55-1.02 [facility] Comment on above: Performed By: #### O BSCRN #### [facility] [address] [place] [address] Dr. Kayley Hatfield EGFR-AF [place]EALANDER >60 Normal >=60 [facility] Comment on above: Performed By: #### O BSCRN #### [facility] [address] [place] [address] Dr. Kayley Hatfield EGFR-NON AF [place]ER >60 Normal >=60 [facility] Comment on above: Performed By: #### O BSCRN #### [facility] [address] [place] [address] Dr. Kayley Hatfield Globulin (S) [Mass/Vol] 4.2 g/dL Normal [facility] Comment on above: Performed By: #### O BSCRN #### [facility] [address] [address] [address] Kayley Hatfield Glucose [Mass/Vol] 134 mg/dL Critically high 74-106 [facility] Comment on above: Performed By: #### O BSCRN #### [facility] [address] [address] [address] Kayley Hatfield Potassium [Moles/Vol] 3.9 mmol/L Normal 3.5-5.1 [facility] Comment on above: Performed By: #### O BSCRN #### [facility] [address] [address] [address] Kayley Hatfield Protein [Mass/Vol] 6.9 g/dL Normal 6.4-8.2 [facility] Comment on above: Performed By: #### O BSCRN #### [facility] [address] [address] [address] Kayley Hatfield Sodium [Moles/Vol] 136 mmol/L Normal 136-145 [facility] Comment on above: Performed By: #### O BSCRN #### [facility] [address] [address] [address] Kayley Hatfield Urea nitrogen [Mass/Vol] 10.0 mg/dL Normal 7.0-18.0 [facility] Comment on above: Performed By: #### O BSCRN #### [facility] [address] [address] [address] Kayley Hatfield Urea nitrogen/Creatinine [Mass ratio] 12.7 mg/mg Normal [facility] Comment on above: Performed By: #### O BSCRN #### [facility] [address] [address] [address] Kayley Hatfield PROTIMEon 04-25-2022 INR Coag (PPP) [Relative time] 1.08 {INR} Normal [facility] Comment on above: Performed By: #### P RTELEC #### [facility] [address] [address] [address] Kayley Hatfield INR GUIDELINES SEE BELOW Normal [facility] Comment on above: Result Comment: JOAQUIM RED INR: 2.0 - 3.0 CONDITIONS NOT LISTED BELOW 2.5 - 3.5 FOR PROSTHETIC HEART VALVE REPLACEMENT 2.5 - 3.5 RECURRENT THROMBOSIS Performed By: #### P RTELEC #### [facility] [address] [place] [address] Dr. Kayley Hatfield PT Coag (PPP) [Time] 11.6 s Normal 9.0-11.6 [facility] Comment on above: Performed By: #### P RTELEC #### [facility] [address] [place] [address] Dr. Kayley Hatfield PTTon 04-25-2022 aPTT Coag (Bld) [Time] 31.1 s Normal 22.3-36.2 [facility] Comment on above: Performed By: #### P RTELEC #### [facility] [address] [place] [address] Dr. Kayley Hatfield TROPONIN, HIGH SENSITIVITYon 04-25-2022 HSTROP 9.6 pg/mL Normal 4.0-51.3 [facility] Comment on above: Result Comment: CUT- OFF POINTS HAVE BEEN ESTABLISHED BASED ON THE FOURTH UNIVERSAL DEFINITIONS OF MYOCARDIAL INFARCTION. THE UPPER REFERENCE LIMIT (URL) OF TROPONIN, DEFINED THE 99TH PERCENTILE OF cTnI DISTRIBUTION IN A REFERENCE POPULATION, HAS BEEN CONFIRMED THE DECISION THRESHOLD FOR AR DIAGNOSIS. Performed By: #### P RTELEC #### [facility] [address] [place] [address] Dr. Kayley Hatfield TSHon 04-25-2022 TSH 1.431 uIU/mL Normal 0.358-3.740 [facility] Comment on above: Performed By: #### P RTELEC #### [facility] [address] [place] [address] Dr. Kayley Hatfield URINE MICROSCOPIC ONLYon BACTERIA NONE SEEN Normal NONE SEEN [facility] Comment on above: Performed By: #### C VDTBH #### [facility] [address] [place] [address] Dr. Kayley Hatfield Bacteria identified Cx Nom (U) NOT INDICATED Normal [facility] Comment on above: Performed By: #### C VDTBH #### [facility] [address] [place] [address] Dr. Kayley Hatfield CAST NONE SEEN Normal NONE SEEN [facility] Comment on above: Performed By: #### C VDTBH #### [facility] [address] [place] [address] Dr. Kayley Hatfield Crystals LM Nom (Urine sed) NONE SEEN Normal NONE SEEN [facility] Comment on above: Performed By: #### C VDTBH #### [facility] [address] [place] [address] Dr. Kayley Hatfield Epithelial cells LM Ql (Urine sed) FEW Abnormal NONE SEEN /RARE [facility] Comment on above: Performed By: #### C VDTBH #### [facility] [address] [place] [address] Dr. Kayley Hatfield MUCOUS NONE SEEN Normal NONE SEEN [facility] Comment on above: Performed By: #### C VDTBH #### [facility] [address] [place] [address] Dr. Kayley Hatfield RBC 2-5 Abnormal 0-2 [facility] Comment on above: Performed By: #### C VDTBH #### [facility] [address] [place] [address] Dr. Kayley Hatfield WBC NONE SEEN Normal NONE SEEN [facility] Comment on above: Performed By: #### C VDTBH #### [facility] [address] [place] [address] Dr. Kayley Hatfield IMMUNOFIXATION(KENNETH),PROTEIN ELEC(PE),[facility] 03-31-2022 Albumin [Mass/Vol] 3.6 g/dL Normal 2.9-4.4 [facility] Comment on above: Performed By: #### B LDCX1 #### [facility] [address] [place] [address] Dr. Kayley Hatfield Albumin/Globulin [Mass ratio] 1.6 {ratio} Normal 0.7-1.7 [facility] Comment on above: Performed By: #### B LDCX1 #### [facility] [address] [address] [address] Kayley Hatfield Fzcsm-9-Qshpifhl 0.3 g/dL Normal 0.0-0.4 [facility] Comment on above: Performed By: #### B LDCX1 #### [facility] [address] [place] [address] Dr. Kayley Hatfield Qrehi-7-Qymdatel 0.8 g/dL Normal 0.4-1.0 [facility] Comment on above: Performed By: #### B LDCX1 #### [facility] [address] [place] [address] Dr. Kayley Hatfield Beta Globulin 1.0 g/dL Normal 0.7-1.3 [facility] Comment on above: Performed By: #### B LDCX1 #### [facility] [address] [place] [address] Dr. Kayley Hatfield Free [place] Lt Chains,S 16.0 mg/L Normal 3.3-19.4 [facility] Comment on above: Performed By: #### B LDCX1 #### [facility] [address] [place] [address] Dr. Kayley Hatfield Free Lambda Lt Chains,S 10.1 mg/L Normal 5.7-26.3 [facility] Comment on above: Performed By: #### B LDCX1 #### [facility] [address] [place] [address] Dr. Kayley Hatfield Gamma Globulin 0.4 g/dL Normal 0.4-1.8 [facility] Comment on above: Performed By: #### B LDCX1 #### [facility] [address] [address] [address] Kayley Hatfield Globulin (S) [Mass/Vol] 2.4 g/dL Normal 2.2-3.9 [facility] Comment on above: Performed By: #### B LDCX1 #### [facility] [address] [place] [address] Dr. Kayley Hatfield Immunofixation Result, Serum Comment Normal [facility] Comment on above: Result Comment: No m onoclonality detected. Performed By: #### B LDCX1 #### [facility] [address] [address] [address] Kayley Hatfield Immunoglobulin A, Qn, Serum 128 mg/dL Normal 87-352 [facility] Comment on above: Performed By: #### B LDCX1 #### [facility] [address] [address] [address] Kayley Hatfield Immunoglobulin G, Qn, Serum 487 mg/dL Critically low 586-1602 [facility] Comment on above: Performed By: #### B LDCX1 #### [facility] [address] [address] [address] Kayley Hatfield Immunoglobulin M, Qn, Serum 38 mg/dL Normal 26-217 [facility] Comment on above: Performed By: #### B LDCX1 #### [facility] [address] [place] [address] Dr. Kayley Hatfield [place]/Lambda Ratio, S 1.58 Normal 0.26-1.65 [facility] Comment on above: Performed By: #### B LDCX1 #### [facility] [address] [place] [address] Dr. Kayley Hatfield M-Sandip Not Observed Normal Not Observed [facility] Comment on above: Performed By: #### B LDCX1 #### [facility] [address] [place] [address] Dr. Kayley Hatfield PDF . Normal [facility] Comment on above: Performed By: #### B LDCX1 #### [facility] [address] [place] [address] Dr. Kayley Hatfield Please note: Comment Normal [facility] Comment on above: Result Comment: Prot ein electrophoresis scan will follow via computer, mail, or ramp supervisor delivery. Performed By: #### B LDCX1 #### [facility] [address] [place] [address] Dr. Kayley Hatfield Protein [Mass/Vol] 6.0 g/dL Normal 6.0-8.5 [facility] Comment on above: Performed By: #### B LDCX1 #### [facility] [address] [address] [address] Kayley Hatfield CBC AUTO DIFFon 03-30-2022 BASO # 0.1 103/ul Normal 0.0-0.1 [facility] Comment on above: Performed By: #### P RBC #### [facility] [address] [address] [address] Kayley Hatfield Basophils/100 WBC (Bld) 0.4 % Normal 0.2-2.0 [facility] Comment on above: Performed By: #### P RBC #### [facility] [address] [address] [address] Kayley Hatfield EO # 0.2 103/ul Normal 0.0-0.7 [facility] Comment on above: Performed By: #### P RBC #### [facility] [address] [place] [address] Dr. Kayley Hatfield Eosinophils/100 WBC (Bld) 1.1 % Normal 0.9-7.0 [facility] Comment on above: Performed By: #### P RBC #### [facility] [address] [place] [address] Dr. Kayley Hatfield Erythrocyte distribution width (RBC) [Ratio] 0.0 % Critically low 11.0-15.0 [facility] Comment on above: Performed By: #### P RBC #### [facility] [address] [place] [address] Dr. Kayley Hatfield Hematocrit (Bld) [Volume fraction] 24.0 % Critically low 36.0-48.0 [facility] Comment on above: Performed By: #### P RBC #### [facility] [address] [place] [address] Dr. Kayley Hatfield Hemoglobin (Bld) [Mass/Vol] 7.2 g/dL Critically low 12.0-16.0 [facility] Comment on above: Performed By: #### P RBC #### [facility] [address] [place] [address] Dr. Kayley Hatfield IG # 0.10 10e3/ul Critically high 0.00-0.03 [facility] Comment on above: Performed By: #### P RBC #### [facility] [address] [address] [address] Kayley Hatfield IG % 0.6 % Critically high 0.0-0.5 [facility] Comment on above: Performed By: #### P RBC #### [facility] [address] [address] [address] Kayley Hatfield LYMPH # 1.5 103/ul Normal 1.2-3.8 [facility] Comment on above: Performed By: #### P RBC #### [facility] [address] [place] [address] Dr. Kayley Hatfield Lymphocytes/100 WBC (Bld) 9.0 % Critically low 20.5-60.0 [facility] Comment on above: Performed By: #### P RBC #### [facility] [address] [place] [address] Dr. Kayley Hatfield MANUAL DIFF REQ NO Normal [facility] Comment on above: Performed By: #### P RBC #### [facility] [address] [place] [address] Dr. Kayley Hatfield MCH (RBC) [Entitic mass] 27.3 pg Normal 26.7-34.0 [facility] Comment on above: Performed By: #### P RBC #### [facility] [address] [place] [address] Dr. Kayley Hatfield MCHC (RBC) [Mass/Vol] 30.0 g/dL Normal 29.9-35.2 [facility] Comment on above: Performed By: #### P RBC #### [facility] [address] [place] [address] Dr. Kayley Hatfield MCV (RBC) [Entitic vol] 90.9 fL Normal 81.0-99.0 [facility] Comment on above: Performed By: #### P RBC #### [facility] [address] [place] [address] Dr. Kayley Hatfield MONO # 2.3 103/ul Critically high 0.3-0.8 [facility] Comment on above: Performed By: #### P RBC #### [facility] [address] [address] [address] Kayley Hatfield Monocytes/100 WBC (Bld) 13.8 % Critically high 1.7-12.0 [facility] Comment on above: Performed By: #### P RBC #### [facility] [address] [place] [address] Dr. Kayley Hatfield NEUT # 12.7 103/ul Critically high 1.4-6.5 [facility] Comment on above: Performed By: #### P RBC #### [facility] [address] [place] [address] Dr. Kayley Hatfield Neutrophils/100 WBC (Bld) 75.1 % Critically high 43.0-75.0 [facility] Comment on above: Performed By: #### P RBC #### [facility] [address] [place] [address] Dr. Kayley Hatfield Platelet mean volume (Bld) [Entitic vol] 8.9 fL Critically low 9.5-13.5 [facility] Comment on above: Performed By: #### P RBC #### [facility] [address] [place] [address] Dr. Kayley Hatfield PLT 782 103/ul Critically high 150-450 [facility] Comment on above: Performed By: #### P RBC #### [facility] [address] [place] [address] Dr. Kayley Hatfield RBC 2.64 106/ul Critically low 4.20-5.40 [facility] Comment on above: Performed By: #### P RBC #### [facility] [address] [place] [address] Dr. Kayley Hatfield WBC 16.9 103/ul Critically high 4.0-11.0 [facility] Comment on above: Performed By: #### P RBC #### [facility] [address] [place] [address] Dr. Kayley Hatfield PRBC LEUKOREDUCEDon 03-30-20 ABO and Rh group Nom (Bld) Cross Match Result Compatible Unit Blood Type O Pos Unit Number [id number] Status Information Transfused Product ID Red Blood Cells Product Code [id number] Cross Match Result Compatible Unit Blood Type O Pos Unit Number [id number] Status Information Transfused Product ID Red Blood Cells Product Code [id number] Normal [facility] Comment on above: Performed By: #### P RBC #### [facility] [address] [place] [address] Dr. Kayley Hatfield PROF CHEM 8 (BAS METB)on Anion gap [Moles/Vol] 6.9 mmol/L Normal [facility] Comment on above: Performed By: #### P RBC #### [facility] [address] [place] [address] Dr. Kayley Hatfield Calcium [Mass/Vol] 8.7 mg/dL Normal 8.5-10.1 [facility] Comment on above: Performed By: #### P RBC #### [facility] [address] [place] [address] Dr. Kayley Hatfield Chloride [Moles/Vol] 101 mmol/L Normal 98-107 [facility] Comment on above: Performed By: #### P RBC #### [facility] [address] [place] [address] Dr. Kayley Hatfield CO2 [Moles/Vol] 33.3 mmol/L Critically high 21.0-32.0 [facility] Comment on above: Performed By: #### P RBC #### [facility] [address] [place] [address] Dr. Kayley Hatfield Creatinine [Mass/Vol] 0.83 mg/dL Normal 0.55-1.02 [facility] Comment on above: Performed By: #### P RBC #### [facility] [address] [place] [address] Dr. Kayley Hatfield EGFR-AF [place]EALANDER >60 Normal >=60 [facility] Comment on above: Performed By: #### P RBC #### [facility] [address] [place] [address] Dr. Kayley Hatfield EGFR-NON AF [place]ANDER >60 Normal >=60 [facility] Comment on above: Performed By: #### P RBC #### [facility] [address] [place] [address] Dr. Kayley Hatfield Glucose [Mass/Vol] 94 mg/dL Normal 74-106 [facility] Comment on above: Performed By: #### P RBC #### [facility] [address] [place] [address] Dr. Kayley Hatfield Potassium [Moles/Vol] 4.2 mmol/L Normal 3.5-5.1 [facility] Comment on above: Performed By: #### P RBC #### [facility] [address] [place] [address] Dr. Kayley Hatfield Sodium [Moles/Vol] 137 mmol/L Normal 136-145 [facility] Comment on above: Performed By: #### P RBC #### [facility] [address] [place] [address] Dr. Kayley Hatfield Urea nitrogen [Mass/Vol] 15.0 mg/dL Normal 7.0-18.0 [facility] Comment on above: Performed By: #### P RBC #### [facility] [address] [place] [address] Dr. Kalyey Hatfield Urea nitrogen/Creatinine [Mass ratio] 18.1 mg/mg Normal [facility] Comment on above: Performed By: #### P RBC #### [facility] [address] [place] [address] Dr. Kayley Hatfield PROTEIN ELECTROPHERESISon Albumin [Mass/Vol] 3.4 g/dL Normal 2.9-4.4 [facility] Comment on above: Performed By: #### P RTELEC #### [facility] [address] [place] [address] Dr. Kayley Hatfield Albumin/Globulin [Mass ratio] 1.3 {ratio} Normal 0.7-1.7 [facility] Comment on above: Performed By: #### P RTELEC #### [facility] [address] [place] [address] Dr. Kayley Hatfield Aolce-1-Oftkvlhy 0.3 g/dL Normal 0.0-0.4 [facility] Comment on above: Performed By: #### P RTELEC #### [facility] [address] [place] [address] Dr. Kayley Hatfield Hxkrt-9-Ritknsmq 0.8 g/dL Normal 0.4-1.0 [facility] Comment on above: Performed By: #### P RTELEC #### [facility] [address] [place] [address] Dr. Kayley Hatfield Beta Globulin 1.0 g/dL Normal 0.7-1.3 [facility] Comment on above: Performed By: #### P RTELEC #### [facility] [address] [place] [address] Dr. Kayley Hatfield Gamma Globulin 0.5 g/dL Normal 0.4-1.8 [facility] Comment on above: Performed By: #### P RTELEC #### [facility] [address] [place] [address] Dr. Kayley Hatfield Globulin (S) [Mass/Vol] 2.6 g/dL Normal 2.2-3.9 [facility] Comment on above: Performed By: #### P RTELEC #### [facility] [address] [place] [address] Dr. Kayley Hatfield M-Sandip Not Observed Normal Not Observed [facility] Comment on above: Performed By: #### P RTELEC #### [facility] [address] [place] [address] Dr. Kayley Hatfield PDF . Normal [facility] Comment on above: Performed By: #### P RTELEC #### [facility] [address] [place] [address] Dr. Kayley Hatfield Please note: Comment Normal [facility] Comment on above: Result Comment: Prot ein electrophoresis scan will follow via computer, mail, or ramp supervisor delivery. Performed By: #### P RTELEC #### [facility] [address] [place] [address] Dr. Kayley Hatfield Protein [Mass/Vol] 6.0 g/dL Normal 6.0-8.5 [facility] Comment on above: Performed By: #### P RTELEC #### [facility] [address] [place] [address] Dr. Kayley Hatfield XR CHEST 1 Von [...] Date: 2022-03-30 06:17 Normal [facility] CBC W MANUAL DIFFon 03-29-20 22 ANISOCYTOSIS 2+ Normal [facility] Comment on above: Performed By: #### C VDTBH #### [facility] [address] [place] [address] Dr. Kayley Hatfield ATYPICAL LYMPH # Normal [facility] Comment on above: Performed By: #### C VDTBH #### [facility] [address] [place] [address] Dr. Kayley Hatfield ATYPICAL LYMPH % Normal [facility] Comment on above: Performed By: #### C VDTBH #### [facility] [address] [place] [address] Dr. Kayley Hatfield BAND # 0.0 103/ul Normal 0.0-0.3 [facility] Comment on above: Performed By: #### C VDTBH #### [facility] [address] [place] [address] Dr. Kayley Hatfield BAND % 0 % Normal 0-5 [facility] Comment on above: Performed By: #### C VDTBH #### [facility] [address] [place] [address] Dr. Kayley Hatfield BASOM # 0.59 103/ul Critically high 0.00-0.10 [facility] Comment on above: Performed By: #### C VDTBH #### [facility] [address] [place] [address] Dr. Kayley Hatfield BASOM % 3.0 % Critically high 0.2-2.0 [facility] Comment on above: Performed By: #### C VDTBH #### [facility] [address] [place] [address] Dr. Kayley Hatfield BLAST # Normal [facility] Comment on above: Performed By: #### C VDTBH #### [facility] [address] [place] [address] Dr. Kayley Hatfield BLAST % Normal [facility] Comment on above: Performed By: #### C VDTBH #### [facility] [address] [place] [address] Dr. Kayley Hatfield CORRECTED WBC Normal 4.0-11.0 [facility] Comment on above: Performed By: #### C VDTBH #### [facility] [address] [place] [address] Dr. Kayley Hatfield EOS # 0.40 103/ul Normal 0.00-0.70 [facility] Comment on above: Performed By: #### C VDTBH #### [facility] [address] [place] [address] Dr. Kayley Hatfield EOS% 2.0 % Normal 0.9-7.0 [facility] Comment on above: Performed By: #### C VDTBH #### [facility] [address] [place] [address] Dr. Kayley Hatfield HCT 31.1 % Critically low 36.0-48.0 [facility] Comment on above: Performed By: #### C VDTBH #### [facility] [address] [place] [address] Dr. Kayley Hatfield HGB 9.7 g/dl Critically low 12.0-16.0 [facility] Comment on above: Performed By: #### C VDTBH #### [facility] [address] [place] [address] Dr. Kayley [place] HYPOCHROMASIA 1+ Normal [facility] Comment on above: Performed By: #### C VDTBH #### [facility] [address] [place] [address] Dr. Kayley [place] LYMPHM # 4.75 103/ul Critically high 1.20-3.80 [facility] Comment on above: Performed By: #### C VDTBH #### [facility] [address] [address] [address] Kayley [place] LYMPHM% 24.0 % Normal 20.5-60.0 [facility] Comment on above: Performed By: #### C VDTBH #### [facility] [address] [place] [address] Dr. Kayley [place] MCH 27.0 pg Normal 26.7-34.0 [facility] Comment on above: Performed By: #### C VDTBH #### [facility] [address] [place] [address] Dr. Kayley [place] MCHC 31.2 g/dl Normal 29.9-35.2 [facility] Comment on above: Performed By: #### C VDTBH #### [facility] [address] [place] [address] Dr. Kayley [place] MCV 86.6 fL Normal 81.0-99.0 [facility] Comment on above: Performed By: #### C VDTBH #### [facility] [address] [place] [address] Dr. Kayley [place] METAMYELOCYTE # Normal [facility] Comment on above: Performed By: #### C VDTBH #### [facility] [address] [place] [address] Dr. Kayley [place] METAMYELOCYTE % Normal [facility] Comment on above: Performed By: #### C VDTBH #### [facility] [address] [place] [address] Dr. Kayley [place] MONOM# 0.59 103/ul Normal 0.30-0.80 [facility] Comment on above: Performed By: #### C VDTBH #### [facility] [address] [address] [address] Kayley [place]field MONOM% 3.0 % Normal 1.7-12.0 [facility] Comment on above: Performed By: #### C VDTBH #### [facility] [address] [address] [address] Kayley [place] MPV 8.4 fL Critically low 9.5-13.5 [facility] Comment on above: Performed By: #### C VDTBH #### [facility] [address] [address] [address] Kayley [place] MYELOCYTE # Normal [facility] Comment on above: Performed By: #### C VDTBH #### [facility] [address] [place] [address] Dr. Kayley [place] MYELOCYTE % Normal [facility] Comment on above: Performed By: #### C VDTBH #### [facility] [address] [address] [address] Kayley [place] NRBC Normal [facility] Comment on above: Performed By: #### C VDTBH #### [facility] [address] [address] [address] Kayley [place] OVALOCYTES SLIGHT Normal [facility] Comment on above: Performed By: #### C VDTBH #### [facility] [address] [place] [address] Dr. Kayley [place] PLT 950 103/ul Critically high 150-450 [facility] Comment on above: Performed By: #### C VDTBH #### [facility] [address] [address] [address] Kayley [place] RBC 3.59 106/ul Critically low 4.20-5.40 [facility] Comment on above: Performed By: #### C VDTBH #### [facility] [address] [place] [address] Dr. Kyaley [place] RDW 26.6 % Critically high 11.0-15.0 [facility] Comment on above: Performed By: #### C VDTBH #### [facility] [address] [address] [address] Kayley [place]field SEG # 13.46 103/ul Critically high 1.40-6.50 [facility] Comment on above: Performed By: #### C VDTBH #### [facility] [address] [place] [address] Dr. Kayley [place]field SEG % 68.0 % Normal 43.0-75.0 [facility] Comment on above: Performed By: #### C VDTBH #### [facility] [address] [address] [address] Kayley [place]field WBC 19.8 103/ul Critically high 4.0-11.0 [facility] Comment on above: Performed By: #### C VDTBH #### [facility] [address] [place] [address] Dr. Kayley [place]field PROF CHEM 8 (BAS METB)on Anion gap [Moles/Vol] 8.6 mmol/L Normal [facility] Comment on above: Performed By: #### L #### [facility] [address] [place] [address] Dr. Kayley [place] Calcium [Mass/Vol] 8.9 mg/dL Normal 8.5-10.1 [facility] Comment on above: Performed By: #### L #### [facility] [address] [place] [address] Dr. Kayley [place]field Chloride [Moles/Vol] 102 mmol/L Normal 98-107 [facility] Comment on above: Performed By: #### L DH #### [facility] [address] [place] [address] Dr. Kayley [place] CO2 [Moles/Vol] 34.3 mmol/L Critically high 21.0-32.0 [facility] Comment on above: Performed By: #### L DH #### [facility] [address] [place] [address] Dr. Kayley [place]field Creatinine [Mass/Vol] 0.86 mg/dL Normal 0.55-1.02 [facility] Comment on above: Performed By: #### L DH #### [facility] [address] [address] [address] Kayley [place] EGFR-AF NEW ZEALANDER >60 Normal >=60 [facility] Comment on above: Performed By: #### L DH #### [facility] [address] [place] [address] Dr. Kayley [place]field EGFR-NON AF NEW ZEALANDER >60 Normal >=60 [facility] Comment on above: Performed By: #### L DH #### [facility] [address] [address] [address] Kayley [place] Glucose [Mass/Vol] 102 mg/dL Normal 74-106 [facility] Comment on above: Performed By: #### L DH #### [facility] [address] [place] [address] Dr. Kayley [place]field Potassium [Moles/Vol] 3.9 mmol/L Normal 3.5-5.1 [facility] Comment on above: Performed By: #### L DH #### [facility] [address] [place] [address] Dr. Kayley [place] Sodium [Moles/Vol] 141 mmol/L Normal 136-145 [facility] Comment on above: Performed By: #### L DH #### [facility] [address] [place] [address] Dr. Kayley [place] Urea nitrogen [Mass/Vol] 20.0 mg/dL Critically high 7.0-18.0 [facility] Comment on above: Performed By: #### L DH #### [facility] [address] [place] [address] Dr. Kayley [place] Urea nitrogen/Creatinine [Mass ratio] 23.3 mg/mg Normal [facility] Comment on above: Performed By: #### L DH #### [facility] [address] [place] [address] Dr. Kayley [place]field XR CHEST 1 Von [...] MIGUE REYNOSO Date: 2022-03-29 13:26 Normal [facility] XR CHEST 1 V EXAMINATION: XR [...] Date: 2022-03-29 11:37 Normal [facility] XR CHEST 1 V EXAMINATION: XR [...] right side chest tube. Electronically authenticated by: MIGEU ANGELES Date: 2022-03-29 07:32 Normal [facility] XR CHEST 1 V EXAM: XR [...] Date: 2022-03-28 22:40 Normal [facility] CBC W MANUAL DIFFon 03-28-20 22 ANISOCYTOSIS 3+ Normal [facility] Comment on above: Performed By: #### C BCMAN #### [facility] [address] [place] [address] Dr. Kayley [place] ATYPICAL LYMPH # Normal [facility] Comment on above: Performed By: #### C BCMAN #### [facility] [address] [place] [address] Dr. Kayley [place] ATYPICAL LYMPH % Normal [facility] Comment on above: Performed By: #### C BCMAN #### [facility] [address] [place] [address] Dr. Kayley Hatfield BAND # 0.3 103/ul Normal 0.0-0.3 [facility] Comment on above: Performed By: #### C BCMAN #### [facility] [address] [place] [address] Dr. Kayley [place]field BAND % 2 % Normal 0-5 [facility] Comment on above: Performed By: #### C BCMAN #### [facility] [address] [place] [address] Dr. Kayley [place]field BASOM # 0.00 103/ul Normal 0.00-0.10 [facility] Comment on above: Performed By: #### C BCMAN #### [facility] [address] [place] [address] Dr. Kayley Hatfield BASOM % 0.0 % Critically low 0.2-2.0 [facility] Comment on above: Performed By: #### C ALONZO #### [facility] [address] [address] [address] Kayley Hatfield BLAST # Normal [facility] Comment on above: Performed By: #### C ALONZO #### [facility] [address] [address] [address] Kayley [place]field BLAST % Normal [facility] Comment on above: Performed By: #### C ALONZO #### [facility] [address] [address] [address] Kayley [place] CORRECTED WBC Normal 4.0-11.0 [facility] Comment on above: Performed By: #### C ALONZO #### [facility] [address] [place] [address] Dr. Kayley Hatfield EOS # 0.00 103/ul Normal 0.00-0.70 [facility] Comment on above: Performed By: #### C ALONZO #### [facility] [address] [place] [address] Dr. Kayley [place]field EOS% 0.0 % Critically low 0.9-7.0 [facility] Comment on above: Performed By: #### C ALONZO #### [facility] [address] [place] [address] Dr. Kayley Hatfield HCT 23.6 % Critically low 36.0-48.0 [facility] Comment on above: Performed By: #### C ALONZO #### [facility] [address] [place] [address] Dr. Kayley [place]field HGB 6.8 g/dl Critically low 12.0-16.0 [facility] Comment on above: Performed By: #### C ALONZO #### [facility] [address] [place] [address] Dr. Kayley [place] HYPOCHROMASIA 3+ Normal [facility] Comment on above: Performed By: #### C ALONZO #### [facility] [address] [place] [address] Dr. Kayley [place] LYMPHM # 1.17 103/ul Critically low 1.20-3.80 [facility] Comment on above: Performed By: #### C ALONZO #### [facility] [address] [address] [address] Kayley [place]field LYMPHM% 7.0 % Critically low 20.5-60.0 [facility] Comment on above: Performed By: #### C LAONZO #### [facility] [address] [place] [address] Dr. Kayley [place]field MCH 24.6 pg Critically low 26.7-34.0 [facility] Comment on above: Performed By: #### C ALONZO #### [facility] [address] [place] [address] Dr. Kayley [place]field MCHC 28.8 g/dl Critically low 29.9-35.2 [facility] Comment on above: Performed By: #### C ALONZO #### [facility] [address] [place] [address] Dr. Kayley [place]field MCV 85.5 fL Normal 81.0-99.0 [facility] Comment on above: Performed By: #### C ALONZO #### [facility] [address] [place] [address] Dr. Kayley [place] METAMYELOCYTE # Normal [facility] Comment on above: Performed By: #### C ALONZO #### [facility] [address] [place] [address] Dr. Kayley [place] METAMYELOCYTE % Normal [facility] Comment on above: Performed By: #### C ALONZO #### [facility] [address] [place] [address] Dr. Kayley Hatfield MONOM# 0.50 103/ul Normal 0.30-0.80 [facility] Comment on above: Performed By: #### C ALONZO #### [facility] [address] [place] [address] Dr. Kayley Hatfield MONOM% 3.0 % Normal 1.7-12.0 [facility] Comment on above: Performed By: #### C ALONZO #### [facility] [address] [place] [address] Dr. Kayley [place] MPV 8.6 fL Critically low 9.5-13.5 [facility] Comment on above: Performed By: #### C ALONZO #### [facility] [address] [address] [address] Kayley [place] MYELOCYTE # Normal [facility] Comment on above: Performed By: #### C ALONZO #### [facility] [address] [address] [address] Kayley [place]field MYELOCYTE % Normal [facility] Comment on above: Performed By: #### C ALONZO #### [facility] [address] [address] [address] Kayley [place]field NRBC Normal [facility] Comment on above: Performed By: #### C ALONZO #### [facility] [address] [place] [address] Dr. Kayley [place] OVALOCYTES SLIGHT Normal [facility] Comment on above: Performed By: #### C ALONZO #### [facility] [address] [address] [address] Kayley [place]field PLT 1384 103/ul Critically high 150-450 [facility] Comment on above: Performed By: #### C ALONZO #### [facility] [address] [address] [address] Kayley Hatfiedl RBC 2.76 106/ul Critically low 4.20-5.40 [facility] Comment on above: Performed By: #### C ALONZO #### [facility] [address] [address] [address] Kayley [place]field RDW 0.0 % Critically low 11.0-15.0 [facility] Comment on above: Performed By: #### C BCMAN #### [facility] [address] [address] [address] Kayley Hatfield SEG # 14.70 103/ul Critically high 1.40-6.50 [facility] Comment on above: Performed By: #### C ALONZO #### [facility] [address] [address] [address] Kayley Hatfield SEG % 88.0 % Critically high 43.0-75.0 [facility] Comment on above: Performed By: #### C BCMAN #### [facility] [address] [place] [address] Dr. Kayley Hatfeild WBC 16.7 103/ul Critically high 4.0-11.0 [facility] Comment on above: Performed By: #### C BCMAN #### [facility] [address] [place] [address] Dr. Kayley [place] CRPon 03-28-2022 CRP [Mass/Vol] mg/L Normal <=1.0 [facility] Comment on above: Performed By: #### H GBHCT #### [facility] [address] [place] [address] Dr. Kayley [place] [facility]10 SARS-CoV-2 (COVID-19) RNA ELBA+probe Ql (Unsp spec) Not detected Normal NOT DETECTED [facility] Comment on above: Result Comment: When [...] for this test is supported by the [place] of [employer] and Human Service's declaration that [...] By: #### P RBC #### [facility] [address] [place] [address] Dr. Kayley Hatfield ER URINE PROFILEon Bilirubin Ql (U) Negative Normal NEGATIVE [facility] Comment on above: Performed By: #### P RBC #### [facility] [address] [place] [address] Dr. Kayley Hatfield Clarity (U) CLEAR Normal CLEAR [facility] Comment on above: Performed By: #### P RBC #### [facility] [address] [place] [address] Dr. Kayley Hatfield Color (U) LT. YELLOW Normal YELLOW [facility] Comment on above: Performed By: #### P RBC #### [facility] [address] [place] [address] Dr. Kayley Hatfield ERUAHBetsey A micrscopic examination will be performed if indicated. Normal [facility] Comment on above: Performed By: #### P RBC #### [facility] [address] [place] [address] Dr. Kayley Hatfield Glucose Ql (U) Negative Normal NEGATIVE [facility] Comment on above: Performed By: #### P RBC #### [facility] [address] [place] [address] Dr. Kayley Hatfield Hemoglobin Ql (U) Negative Normal NEGATIVE [facility] Comment on above: Performed By: #### P RBC #### [facility] [address] [place] [address] Dr. Kayley Hatfield Ketones Ql (U) Negative Normal NEGATIVE [facility] Comment on above: Performed By: #### P RBC #### [facility] [address] [place] [address] Dr. Kayley Hatfield LEUKOCYTES Negative Normal NEGATIVE [facility] Comment on above: Performed By: #### P RBC #### [facility] [address] [place] [address] Dr. Kayley Hatfield Nitrite Ql (U) Negative Normal NEGATIVE [facility] Comment on above: Performed By: #### P RBC #### [facility] [address] [place] [address] Dr. Kayley Hatfield pH (U) 6.0 [pH] Normal 5-9 [facility] Comment on above: Performed By: #### P RBC #### [facility] [address] [place] [address] Dr. Kayley Hatfield SPEC GRAVITY <=1.005 Abnormal 1.005-<=1.025 [facility] Comment on above: Performed By: #### P RBC #### [facility] [address] [place] [address] Dr. Kayley Hatfield UA PROTEIN Negative Normal NEGATIVE/ TRACE [facility] Comment on above: Performed By: #### P RBC #### [facility] [address] [place] [address] Dr. Kayley Hatfield UR MICRO IND NOT INDICATED Normal [facility] Comment on above: Performed By: #### P RBC #### [facility] [address] [place] [address] Dr. Kayley Hatfield Urobilinogen Qn (U) 0.2 {Lu'U}/dL Normal 0.2 - 1. 0 [facility] Comment on above: Performed By: #### P RBC #### [facility] [address] [place] [address] Dr. Kayley Hatfield FERRITINon 03-28-2022 Ferritin [Mass/Vol] 61.0 ng/mL Normal 8.0-252.0 [facility] Comment on above: Performed By: #### P RBC #### [facility] [address] [place] [address] Dr. Kayley Hatfield GLYCOHEMOGLOBIN A1Con 2021 ADA RECOMMENDATION SEE BELOW Normal [facility] Comment on above: Result Comment: ADA RECOMMENDED LIMIT 4.0 - 6.0 ADA THERAPEUTIC TARGET < 7.0 ACTION SUGGESTED > 7.0 Performed By: #### P RBC #### [facility] [address] [place] [address] Dr. Kayley Hatfield Glucose [Mass/Vol] 114 mg/dL Normal [facility] Comment on above: Performed By: #### P RBC #### [facility] [address] [place] [address] Dr. Kayley Hatfield HbA1c (Bld) [Mass fraction] 5.6 % Normal 4.5-6.2 [facility] Comment on above: Performed By: #### P RBC #### [facility] [address] [place] [address] Dr. Kayley Hatfield IRONon 03-28-2022 Iron [Mass/Vol] 37.0 ug/dL Critically low 50.0-170.0 [facility] Comment on above: Performed By: #### P RBC #### [facility] [address] [address] [address] Kayley Hatfield LDHon 03-28-2022 LDH 174 U/L Normal 81-234 [facility] Comment on above: Performed By: #### L DH #### [facility] [address] [address] [address] Kayley Hatfield LIPID PROFILEon 03-28-2022 CHOL-HDL RATIO NORM SEE BELOW Normal [facility] Comment on above: Result Comment: 3.3 - 4.4 LOW RISK 4.4 - 7.1 AVERAGE RISK 7.1 - 11.0 MODERATE RISK >11.0 HIGH RISK Performed By: #### P RBC #### [facility] [address] [address] [address] Kayley Hatfield Cholesterol [Mass/Vol] 193 mg/dL Normal <=200 [facility] Comment on above: Performed By: #### P RBC #### [facility] [address] [address] [address] Kayley Hatfield Cholesterol in HDL [Mass/Vol] 95 mg/dL Critically high 40-60 [facility] Comment on above: Performed By: #### P RBC #### [facility] [address] [address] [address] Kayley Hatfield Cholesterol in LDL [Mass/Vol] 74.8 mg/dL Normal [facility] Comment on above: Performed By: #### P RBC #### [facility] [address] [address] [address] Kayley Hatfield Cholesterol.total/Cho lesterol in HDL [Mass ratio] 2.0 {ratio} Normal [facility] Comment on above: Performed By: #### P RBC #### [facility] [address] [address] [address] Kayley Hatfield HDL NORMAL > or = 60 mg/dl - LO W CARDIOVASCULAR RISK <40 mg/dl - HIGH CARDIOVASCULAR RISK Normal [facility] Comment on above: Performed By: #### P RBC #### [facility] [address] [address] [address] Kayley Hatfield LDL CALC NORMAL SEE BELOW Normal [facility] Comment on above: Result Comment: <100 mg/dl OPTIMAL 100 - 129 mg/dl NEAR OR ABOVE OPTIMAL 130 - 159 mg/dl BORDERLINE HIGH 160 - 189 mg/dl HIGH >190 mg/dl VERY HIGH Performed By: #### P RBC #### [facility] [address] [address] [address] Kayley Hatfield Triglyceride [Mass/Vol] 116 mg/dL Normal <=150 [facility] Comment on above: Performed By: #### P RBC #### [facility] [address] [address] [address] Kayley Hatfield VLDL CALC 23.2 mg/dL Normal [facility] Comment on above: Performed By: #### P RBC #### [facility] [address] [address] [address] Kayley Hatfield LIVER PROFILEon 03-28-2022 Albumin [Mass/Vol] 3.2 g/dL Critically low 3.4-5.0 [facility] Comment on above: Performed By: #### P RBC #### [facility] [address] [place] [address] Dr. Kayley Hatfield Albumin/Globulin [Mass ratio] 1.0 {ratio} Normal [facility] Comment on above: Performed By: #### P RBC #### [facility] [address] [address] [address] Kayley Hatfield ALP [Catalytic activity/Vol] 56 U/L Normal 46-116 [facility] Comment on above: Performed By: #### P RBC #### [facility] [address] [address] [address] Kayley Hatfield ALT [Catalytic activity/Vol] 32 U/L Normal 14-59 [facility] Comment on above: Performed By: #### P RBC #### [facility] [address] [address] [address] Kayley Hatfield AST [Catalytic activity/Vol] 18 U/L Normal 15-37 [facility] Comment on above: Performed By: #### P RBC #### [facility] [address] [place] [address] Dr. Kayley Hatfield BILI, CONJUGATED 0.1 mg/dL Normal 0.0-0.2 [facility] Comment on above: Performed By: #### P RBC #### [facility] [address] [place] [address] Dr. Kayley Hatfield Bilirubin [Mass/Vol] 0.2 mg/dL Normal 0.2-1.0 [facility] Comment on above: Performed By: #### P RBC #### [facility] [address] [place] [address] Dr. Kayley Hatfield Globulin (S) [Mass/Vol] 3.1 g/dL Normal [facility] Comment on above: Performed By: #### P RBC #### [facility] [address] [place] [address] Dr. Kayley Hatfield Protein [Mass/Vol] 6.3 g/dL Critically low 6.4-8.2 [facility] Comment on above: Performed By: #### P RBC #### [facility] [address] [place] [address] Dr. Kayley Hatfield MAGNESIUMon 03-28-2022 Magnesium [Mass/Vol] 1.8 mg/dL Normal 1.8-2.4 [facility] Comment on above: Performed By: #### H GBHCT #### [facility] [address] [place] [address] Dr. Kayley Hatfield PHOSPHORUSon 03-28-2022 Phosphate [Mass/Vol] 4.4 mg/dL Normal 2.6-4.7 [facility] Comment on above: Performed By: #### O BSCRN #### [facility] [address] [place] [address] Dr. Kayley Hatfield PROF CHEM 8 (BAS METB)on Anion gap [Moles/Vol] 10.1 mmol/L Normal [facility] Comment on above: Performed By: #### P RBC #### [facility] [address] [place] [address] Dr. Kayley Hatfield Calcium [Mass/Vol] 9.1 mg/dL Normal 8.5-10.1 [facility] Comment on above: Performed By: #### P RBC #### [facility] [address] [place] [address] Dr. Kayley Hatfield Chloride [Moles/Vol] 101 mmol/L Normal 98-107 [facility] Comment on above: Performed By: #### P RBC #### [facility] [address] [address] [address] Kayley Hatfield CO2 [Moles/Vol] 32.6 mmol/L Critically high 21.0-32.0 [facility] Comment on above: Performed By: #### P RBC #### [facility] [address] [place] [address] Dr. Kayley Hatfield Creatinine [Mass/Vol] 0.90 mg/dL Normal 0.55-1.02 [facility] Comment on above: Performed By: #### P RBC #### [facility] [address] [place] [address] Dr. Kayley Hatfield EGFR-AF NEW ZEALANDER >60 Normal >=60 [facility] Comment on above: Performed By: #### P RBC #### [facility] [address] [place] [address] Dr. Kalyey Hatfield EGFR-NON AF NEW ZEALANDER >60 Normal >=60 [facility] Comment on above: Performed By: #### P RBC #### [facility] [address] [place] [address] Dr. Kayley Hatfield Glucose [Mass/Vol] 161 mg/dL Critically high 74-106 [facility] Comment on above: Performed By: #### P RBC #### [facility] [address] [address] [address] Kayley Hatfield Potassium [Moles/Vol] 4.7 mmol/L Normal 3.5-5.1 [facility] Comment on above: Performed By: #### P RBC #### [facility] [address] [address] [address] Kayley Hatfield Sodium [Moles/Vol] 139 mmol/L Normal 136-145 [facility] Comment on above: Performed By: #### P RBC #### [facility] [address] [place] [address] Dr. Kayley Hatfield Urea nitrogen [Mass/Vol] 15.0 mg/dL Normal 7.0-18.0 [facility] Comment on above: Performed By: #### P RBC #### [facility] [address] [place] [address] Dr. Kayley Hatfield Urea nitrogen/Creatinine [Mass ratio] 16.7 mg/mg Normal [facility] Comment on above: Performed By: #### P RBC #### [facility] [address] [place] [address] Dr. Kayley Hatfield RETICULOCYTEon 03-28-2022 RETIC 4.65 % Critically high 0.60-3.10 [facility] Comment on above: Performed By: #### L DH #### [facility] [address] [place] [address] Dr. Kayley Hatfield SED RATE WESTERGRENon 2021 SED RATE 12 mm/hr Normal <=30 [facility] Comment on above: Performed By: #### P RTELEC #### [facility] [address] [place] [address] Dr. Kayley Hatfield TSHon 03-28-2022 TSH 0.922 uIU/mL Normal 0.358-3.740 [facility] Comment on above: Performed By: #### P RBC #### [facility] [address] [place] [address] Dr. Kayley Hatfield TYPE AND SCREENon 03-28-2022 TYPE AND SCREEN Negative Normal [facility] Comment on above: Performed By: #### C VDTBH #### [facility] [address] [place] [address] Dr. Kayley Hatfield VIT B12 AND FOLATEon 022 Cobalamin (Vitamin B12) [Mass/Vol] 490.0 pg/mL Normal 193.0-986.0 [facility] Comment on above: Performed By: #### L DH #### [facility] [address] [address] [address] Kayley Hatfield FOLATE 14.00 ng/mL Normal 8.60-58.90 [facility] Comment on above: Performed By: #### L DH #### [facility] [address] [address] [address] Kayley Hatfield VITAMIN D 25 OHon 03-28-2022 VIT D 25-OH 41.5 ng/mL Normal [facility] Comment on above: Performed By: #### O BSCRN #### [facility] [address] [address] [address] Kayley Hatfield VIT D RANGES SEE BELOW Normal [facility] Comment on above: Result Comment: <20 ng/mL Vit D deficient 20 - <30 ng/mL Vit D insufficient 30 - 100 ng/mL Vit D sufficient >100 ng/mL Potential Toxicity Performed By: #### O BSCRN #### [facility] [address] [place] [address] Dr. Kayley Hatfield XR CHEST 1 Von [...] Date: 2022-03-28 21:37 Normal [facility] BASIC METABOLIC PANELon Calcium [Mass/Vol] 8.9 mg/dL Normal 8.6-10.3 [facility] Comment on above: Order Comment: No: D o not add to previous draw Performed By: #### 3 5200, 66457, 76763, 30231 #### [facility] [address] [place] [address], [facility] Chloride [Moles/Vol] 97 mmol/L Low 98-107 [facility] Comment on above: Order Comment: No: D o not add to previous draw Performed By: #### 3 5200, 40330, 45178, 33301 #### [facility] [address] [place] [address], [facility] CO2 [Moles/Vol] 35 mmol/L High 21-31 [facility] Comment on above: Order Comment: No: D o not add to previous draw Performed By: #### 3 5200, 69825, 77401, 15450 #### [facility] [address] [place] [address], [facility] Creatinine [Mass/Vol] 0.65 mg/dL Normal 0.60-1.20 [facility] Comment on above: Order Comment: No: D o not add to previous draw Performed By: #### 3 5200, 91935, 25702, 29699 #### [facility] [address] [place] [address], [facility] GFR/1.73 sq M.predicted among non-blacks MDRD (S/P/Bld) [Vol rate/Area] mL/min/{1.73_m2} Normal >60 [facility] Comment on above: Order Comment: No: D o not add to previous draw Result Comment: [facility]'s estimated glomerular filtration rate (eGFR) will [...] of individuals. Performed By: #### 3 0, 25353, 01780, 22449 #### [facility] [address] [place] [address], [place] Glucose [Mass/Vol] 161 mg/dL High 70-100 [facility] Comment on above: Order Comment: No: D o not add to previous draw Performed By: #### 3 0, 59810, 55015, 84168 #### [facility] [address] [place] [address], [place] Potassium [Moles/Vol] 3.9 mmol/L Normal 3.5-5.1 [facility] Comment on above: Order Comment: No: D o not add to previous draw Performed By: #### 3 5199, 45761, 99505, 96714 #### [facility] [address] [place] [address], [place] Sodium [Moles/Vol] 136 mmol/L Normal 136-145 [facility] Comment on above: Order Comment: No: D o not add to previous draw Performed By: #### 3 0, 66523, 73282, 70840 #### [facility] [address] [place] [address], [place] Urea nitrogen [Mass/Vol] 16 mg/dL Normal 7-25 [facility] Comment on above: Order Comment: No: D o not add to previous draw Performed By: #### 3 0, 01709, 67994, 94439 #### [facility] [address] [place] [address], [place] CBC COMPLETE BLOOD COUNTon 0 03-15-2022 Hematocrit (Bld) [Volume fraction] 28.2 % Low 36.0-45.0 [facility] Comment on above: Order Comment: No: D o not add to previous draw Performed By: #### 3 0 #### [facility] [address] [place] [address], [facility] Hemoglobin (Bld) [Mass/Vol] 8.3 g/dL Low 12.0-15.0 [facility] Comment on above: Order Comment: No: D o not add to previous draw Performed By: #### 3 5200 #### [facility] [address] [place] [address], [facility] MCH (RBC) [Entitic mass] 22.9 pg Low 27.0-33.0 [facility] Comment on above: Order Comment: No: D o not add to previous draw Performed By: #### 3 5200 #### [facility] [address] [facility] [place] [address], [facility] MCHC (RBC) [Mass/Vol] 29.4 g/dL Low 32.0-35.0 [facility] Comment on above: Order Comment: No: D o not add to previous draw Performed By: #### 3 5200 #### [facility] [address] [place] [address], [facility] MCV (RBC) [Entitic vol] 77.9 fL Low 82.0-98.0 [facility] Comment on above: Order Comment: No: D o not add to previous draw Performed By: #### 3 5200 #### [facility] [address] [facility] [place] [address], [facility] Nucleated RBC/100 WBC (Bld) [Ratio] 0 % Normal 0-0 [facility] Comment on above: Order Comment: No: D o not add to previous draw Performed By: #### 3 5200 #### [facility] [address] [place] [id number], [facility] PLAT CNT 221 10*3/uL Normal 150-400 [facility] Comment on above: Order Comment: No: D o not add to previous draw Performed By: #### 3 5200 #### [facility] [address] [place] [address], [place] RBC (Bld) [#/Vol] 3.62 10*6/uL Low 3.80-5.00 [facility] Comment on above: Order Comment: No: D o not add to previous draw Performed By: #### 3 5200 #### [facility] [address] [place] [address], [place] RDW ---- Normal 11.5-15.0 [facility] Comment on above: Order Comment: No: D o not add to previous draw Result Comment: Prev ious RDW was unable to be calculated Performed By: #### 3 5200 #### [facility] [address] [place] [address], [place] WBC (Bld) [#/Vol] 11.88 10*3/uL High 4.00-10.60 [facility] Comment on above: Order Comment: No: D o not add to previous draw Performed By: #### 3 5200 #### [facility] [address] [place] [address], [place] POC GLUCOSE LABon 03-15-2022 Glucose [Mass/Vol] 109 mg/dL High 70-100 [facility] Comment on above: Performed By: #### 8 5499 ####[facility] [place] [address], [place] POC GLUCOSE LABon 03-14-2022 Glucose [Mass/Vol] 278 mg/dL High 70-100 [facility] Comment on above: Performed By: #### 8 5499 ####[facility] [place] [address], [place] Glucose [Mass/Vol] 195 mg/dL High 70-100 [facility] Comment on above: Performed By: #### 8 5499 ####[facility] [place] [address], [place] Glucose [Mass/Vol] 114 mg/dL High 70-100 [facility] Comment on above: Performed By: #### 8 5499 ####[facility] [place], [place] [address] [place] [address] Glucose [Mass/Vol] 113 mg/dL High 70-100 [facility] Comment on above: Performed By: #### 3 5200 #### [facility] [address], [place] [id number] [place] [address] PORTABLE CHEST 1 VIEWon PORTABLE CHEST 1 VIEW [facility] Department of Radiology [address] [place] [phone] Patient Name: LISE CANALES : 1955 Sex: F Age: Race: White Pt. Location: [id number] Patient Status: I Ordered Date: 03/14/2022 2:35:00 [...] chest. Electronically signed: Tyshawn Tapia. Transcribed by: [email or web address], User Resident: Electronically Signed by: TYSHAWN TAPIA @ 03/14/2022 03:31 PM Normal [facility] Comment on above: Order Comment: Check Chest Tube Position, S/P Chest tube DC'd PORTABLE CHEST 1 VIEW [facility] Department of Radiology [address] [place] [phone] Patient Name: LISE CANALES : 1955 Sex: F Age: Race: White Pt. Location: [address] [place] [address] Patient Status: I Ordered Date: 03/14/2022 6:50:00 [...] pneumothorax. Electronically signed: Tyshawn Tapia. Transcribed by: [email or web address], User Resident: Electronically Signed by: TYSHAWN TAPIA @ 03/14/2022 02:56 PM Normal [facility] Comment on above: Order Comment: Check Chest Tube Position, S/P Chest tube DC'd POC GLUCOSE LABon 03-13-2022 Glucose [Mass/Vol] 282 mg/dL High 70-100 [facility] Comment on above: Performed By: #### 8 5499 ####[facility] [place] [address], [facility] Glucose [Mass/Vol] 163 mg/dL High 70-100 [facility] Comment on above: Performed By: #### 8 5499 ####[facility] [place] [address], [facility] Glucose [Mass/Vol] 149 mg/dL High 70-100 [facility] Comment on above: Performed By: #### 3 5200 #### [facility] [address] [place] [address], [facility] Glucose [Mass/Vol] 149 mg/dL High 70-100 [facility] Comment on above: Performed By: #### 8 5499 ####[facility] [place] [address] PORTABLE CHEST 1 VIEWon PORTABLE CHEST 1 VIEW [facility] Department of Radiology [address] [place] [phone] Patient Name: LISE CANALES : 1955 Sex: F Age: Race: White Pt. Location: [address] [place] [address] Patient Status: I Ordered Date: 03/13/2022 4:15:00 [...] tube clamp on 03/[address] Gillis PROTOCOL: AP(PA) view was [...] morning Electronically signed: Avinash Mckay. Transcribed by: [email or web address], User Resident: Electronically Signed by: AVINASH MCKAY @ 03/13/2022 06:20 PM Normal [facility] Comment on above: Order Comment: Check Chest Tube Position, S/P Chest tube DC'd PORTABLE CHEST 1 VIEW [facility] Department of Radiology [address] [place] [phone] Patient Name: LISE CANALES : 1955 Sex: F Age: Race: White Pt. Location: [address] [place] [address] Patient Status: I Ordered Date: 03/13/2022 6:50:00 [...] congestion. Electronically signed: Tyshawn Tapia. Transcribed by: [email or web address], User Resident: Electronically Signed by: TYSHAWN TAPIA @ 03/13/2022 08:34 AM Normal [facility] Comment on above: Order Comment: Evalu ate for Aspiration POTASSIUM BLOODon 03-13-2022 Potassium [Moles/Vol] 4.5 mmol/L Normal 3.5-5.1 [facility] Comment on above: Order Comment: No: D o not add to previous draw Performed By: #### 3 5200 #### [facility] [address] BASIC METABOLIC PANELon 09-0 Calcium [Mass/Vol] 9.4 mg/dL Normal 8.6-10.3 [facility] Comment on above: Order Comment: Check Chest Tube Position, S/P Chest tube DC'd Performed By: #### 0 0071 ####[facility] [facility] [place] [address], [facility] Chloride [Moles/Vol] 98 mmol/L Normal 98-107 [facility] Comment on above: Order Comment: Check Chest Tube Position, S/P Chest tube DC'd Performed By: #### 0 0071 ####[facility] [place] [address], [facility] CO2 [Moles/Vol] 34 mmol/L High 21-31 [facility] Comment on above: Order Comment: Check Chest Tube Position, S/P Chest tube DC'd Performed By: #### 0 0071 ####[facility] [facility] [place] [address], [facility] Creatinine [Mass/Vol] 0.56 mg/dL Low 0.60-1.20 [facility] Comment on above: Order Comment: Check Chest Tube Position, S/P Chest tube DC'd Performed By: #### 0 0071 ####[facility] [place] [address] GFR/1.73 sq M.predicted among non-blacks MDRD (S/P/Bld) [Vol rate/Area] mL/min/{1.73_m2} Normal >60 [facility] Comment on above: Order Comment: Check Chest Tube Position, S/P Chest tube DC'd Result Comment: [facility]'s estimated glomerular filtration rate (eGFR) will [...] of individuals. Performed By: #### 0 0071 ####[facility] [place] [address], [facility] Glucose [Mass/Vol] 114 mg/dL High 70-100 [facility] Comment on above: Order Comment: Check Chest Tube Position, S/P Chest tube DC'd Performed By: #### 0 0071 ####[facility] [facility] [place] [address], [facility] Potassium [Moles/Vol] 3.3 mmol/L Low 3.5-5.1 [facility] Comment on above: Order Comment: Check Chest Tube Position, S/P Chest tube DC'd Performed By: #### 0 0071 ####[facility] [facility] [place] [address], [facility] Sodium [Moles/Vol] 140 mmol/L Normal 136-145 [facility] Comment on above: Order Comment: Check Chest Tube Position, S/P Chest tube DC'd Performed By: #### 0 0071 ####[facility] [facility] [place] [address], [facility] Urea nitrogen [Mass/Vol] 9 mg/dL Normal 7-25 [facility] Comment on above: Order Comment: Check Chest Tube Position, S/P Chest tube DC'd Performed By: #### 0 0071 ####[facility] [facility] [place] [address], [facility] CBC COMPLETE BLOOD COUNTon 0 - Hematocrit (Bld) [Volume fraction] 35.2 % Low 36.0-45.0 [facility] Comment on above: Order Comment: No: D o not add to previous draw Performed By: #### 3 4520 #### [facility] [address] [place] [address], [facility] Hemoglobin (Bld) [Mass/Vol] 10.1 g/dL Low 12.0-15.0 [facility] Comment on above: Order Comment: No: D o not add to previous draw Performed By: #### 3 5200 #### [facility] [address] [place] [id number], [facility] IMM PLATELET FRAC 3.6 % Normal 0.8-6.3 [facility] Comment on above: Order Comment: No: D o not add to previous draw Performed By: #### 3 5200 #### [facility] [address] [place] [address], [facility] MCH (RBC) [Entitic mass] 21.9 pg Low 27.0-33.0 [facility] Comment on above: Order Comment: No: D o not add to previous draw Performed By: #### 3 5200 #### [facility] [address] [place] [address], [facility] MCHC (RBC) [Mass/Vol] 28.7 g/dL Low 32.0-35.0 [facility] Comment on above: Order Comment: No: D o not add to previous draw Performed By: #### 3 5200 #### [facility] [address] [place] [address], [facility] MCV (RBC) [Entitic vol] 76.2 fL Low 82.0-98.0 [facility] Comment on above: Order Comment: No: D o not add to previous draw Performed By: #### 3 5200 #### [facility] [address] [place] [id number], [facility] Nucleated RBC/100 WBC (Bld) [Ratio] 0 % Normal 0-0 [facility] Comment on above: Order Comment: No: D o not add to previous draw Performed By: #### 3 5200 #### [facility] [address] [place] [id number], [facility] PLAT CNT 129 10*3/uL Low 150-400 [facility] Comment on above: Order Comment: No: D o not add to previous draw Performed By: #### 3 5200 #### [facility] [address] [place] [address], [facility] RBC (Bld) [#/Vol] 4.62 10*6/uL Normal 3.80-5.00 [facility] Comment on above: Order Comment: No: D o not add to previous draw Performed By: #### 3 5200 #### [facility] [address] [place] [address], [facility] RDW Unable to Calculate Normal 11.5-15.0 [facility] Comment on above: Order Comment: No: D o not add to previous draw Performed By: #### 3 5200 #### [facility] [address] [place] [address], [facility] WBC (Bld) [#/Vol] 11.72 10*3/uL High 4.00-10.60 [facility] Comment on above: Order Comment: No: D o not add to previous draw Performed By: #### 3 5200 #### [facility] [address] [place] [address], [facility] POC GLUCOSE LABon 03-12-2022 Glucose [Mass/Vol] 252 mg/dL High 70-100 [facility] Comment on above: Performed By: #### 3 5200 #### [facility] [address] [place] [address], [place] POC GLUCOSE LABon 03-11-2022 Glucose [Mass/Vol] 121 mg/dL High 70-100 [facility] Comment on above: Performed By: #### 8 5499 ####[facility] [place] [address], [place] Glucose [Mass/Vol] 122 mg/dL High 70-100 [facility] Comment on above: Performed By: #### 3 5200 #### [facility] [address] [place] [address], [facility] Glucose [Mass/Vol] 86 mg/dL Normal 70-100 [facility] Comment on above: Performed By: #### 3 5200 #### [facility] [address] [place] [address], [facility] PORTABLE CHEST 1 VIEWon PORTABLE CHEST 1 VIEW [facility] Department of Radiology [address] [place] [phone] Patient Name: LISE CANALES : 1955 Sex: F Age: Race: White Pt. Location: [id number] Patient Status: I Ordered Date: 03/11/2022 3:25:00 [...] abnormalities Electronically signed: Avinash Mckay. Transcribed by: [email or web address], User Resident: Electronically Signed by: AIVNASH MCKAY @ 03/11/2022 06:30 PM Normal [facility] Comment on above: Order Comment: Evalu ate for Atelectasis CBC COMPLETE BLOOD COUNTon 0 03-10-2022 Erythrocyte distribution width (RBC) [Ratio] 29.9 % High 11.5-15.0 [facility] Comment on above: Order Comment: No: D o not add to previous draw Performed By: #### 3 5200 #### [facility] [address] [address], [facility] Hematocrit (Bld) [Volume fraction] 32.2 % Low 36.0-45.0 [facility] Comment on above: Order Comment: No: D o not add to previous draw Performed By: #### 3 5200 #### [facility] [address] [place] [address], [facility] Hemoglobin (Bld) [Mass/Vol] 9.2 g/dL Low 12.0-15.0 [facility] Comment on above: Order Comment: No: D o not add to previous draw Performed By: #### 3 5200 #### [facility] [address] [place] [address], [facility] IMM PLATELET FRAC 3.4 % Normal 0.8-6.3 [facility] Comment on above: Order Comment: No: D o not add to previous draw Performed By: #### 3 5200 #### [facility] [address] [place] [address], [facility] MCH (RBC) [Entitic mass] 21.9 pg Low 27.0-33.0 [facility] Comment on above: Order Comment: No: D o not add to previous draw Performed By: #### 3 5200 #### [facility] [facility] [address] MCHC (RBC) [Mass/Vol] 28.6 g/dL Low 32.0-35.0 [facility] Comment on above: Order Comment: No: D o not add to previous draw Performed By: #### 3 5200 #### [facility] [address] [place] [id number], [facility] MCV (RBC) [Entitic vol] 76.7 fL Low 82.0-98.0 [facility] Comment on above: Order Comment: No: D o not add to previous draw Performed By: #### 3 5200 #### [facility] [address] [facility] [place] [address], [facility] Nucleated RBC/100 WBC (Bld) [Ratio] 0 % Normal 0-0 [facility] Comment on above: Order Comment: No: D o not add to previous draw Performed By: #### 3 5200 #### [facility] [address] [place] [id number], [facility] PLAT CNT 124 10*3/uL Low 150-400 [facility] Comment on above: Order Comment: No: D o not add to previous draw Performed By: #### 3 5200 #### [facility] [address] [place] [id number], [facility] RBC (Bld) [#/Vol] 4.20 10*6/uL Normal 3.80-5.00 [facility] Comment on above: Order Comment: No: D o not add to previous draw Performed By: #### 3 5200 #### [facility] [address] [place] [id number], [place] WBC (Bld) [#/Vol] 12.68 10*3/uL High 4.00-10.60 [facility] Comment on above: Order Comment: No: D o not add to previous draw Performed By: #### 3 5200 #### [facility] [address] [place] [id number], [facility] HEMOGLOBIN A1Con 03-10-2022 Glucose [Moles/Vol] 143 mmol/L Normal [facility] Comment on above: Order Comment: No: D o not add to previous draw Result Comment: Resu lt changed by BSHORT on 03/10/2022 13:15. The previous value was 140. Performed By: #### 3 1791 #### [facility] [address] [place] [address], [facility] HbA1c (Bld) [Mass fraction] 6.6 % High 4.0-6.0 [facility] Comment on above: Order Comment: No: D o not add to previous draw Result Comment: Resu lt changed by BSHORT on 03/10/2022 13:15. The previous value was 6.5. Performed By: #### 3 1791 #### [facility] [address] [place] [address], [facility] POC GLUCOSE LABon 03-10-2022 Glucose [Mass/Vol] 107 mg/dL High 70-100 [facility] Comment on above: Performed By: #### 3 5200 #### [facility] [address] [place] [address], [place] Glucose [Mass/Vol] 100 mg/dL Normal 70-100 [facility] Comment on above: Performed By: #### 8 5499 ####[facility] [place] [address], [place] Glucose [Mass/Vol] 147 mg/dL High 70-100 [facility] Comment on above: Performed By: #### 8 5499 ####[facility] [place] [address], [place] Glucose [Mass/Vol] 65 mg/dL Low 70-100 [facility] Comment on above: Performed By: #### 8 5499 ####[facility] [place] [address], [place] PORTABLE CHEST 1 VIEWon PORTABLE CHEST 1 VIEW [facility] Department of Radiology [address] [place] [address] Patient Name: LISE CANALES : 1955 Sex: F Age: Race: White Pt. Location: [id number] Patient Status: I Ordered Date: 03/10/2022 7:40:00 [...] recommended. Electronically signed: Derek Ingram. Transcribed by: [email or web address], User Resident: Electronically Signed by: DEREK INGRAM @ 03/10/2022 12:10 PM Normal [facility] Comment on above: Order Comment: No: D o not add to previous draw *URINE CULTUREon 03-09-2022 *URINE CULTURE Clinical Report: (D) Specimen/Source: URINE/CLEAN VOID URINE Collected: 03/09/2022 01:58 Status: Final Last Updated: 03/10/2022 08:51 ISO (Final) 50,000 - 100,000 Cfu/mL Mixed Lexi: Multiple Organisms present suggest contamination. Suggest Repeat Specimen Normal [facility] Comment on above: Performed By: #### 3 0339 ####[facility] [facility].[address] CBC W/DIFFon 03-09-2022 ABS IMM GRANS 0.1 10*3/uL Normal 0.0-0.2 [facility] Comment on above: Order Comment: Check Chest Tube Position, S/P Chest tube DC'd Performed By: #### 5 0103 ####[facility]3000 [facility].[address] ABS NEUTROPHILS 13.3 10*3/uL High 1.6-7.6 [facility] Comment on above: Order Comment: Check Chest Tube Position, S/P Chest tube DC'd Performed By: #### 5 0103 ####[facility]3000 [facility].[address] ANISO Moderate Normal [facility] Comment on above: Order Comment: Check Chest Tube Position, S/P Chest tube DC'd Performed By: #### 5 0103 ####[facility]3000 [facility] Basophils (Bld) [#/Vol] 0.0 10*3/uL Normal 0.0-0.2 [facility] Comment on above: Order Comment: Check Chest Tube Position, S/P Chest tube DC'd Performed By: #### 5 0103 ####[facility]3000 [facility] [place] [address], [facility] Basophils/100 WBC (Bld) 0.3 % Normal 0.0-1.0 [facility] Comment on above: Order Comment: Check Chest Tube Position, S/P Chest tube DC'd Performed By: #### 5 0103 ####[facility] [place] [address] Eosinophils (Bld) [#/Vol] 0.1 10*3/uL Normal 0.0-0.5 [facility] Comment on above: Order Comment: Check Chest Tube Position, S/P Chest tube DC'd Performed By: #### 5 0103 ####[facility] [place] [address], [facility] Eosinophils/100 WBC (Bld) 0.5 % Normal 0.0-6.0 [facility] Comment on above: Order Comment: Check Chest Tube Position, S/P Chest tube DC'd Performed By: #### 5 0103 ####[place] [address] [address] [place] [address] Erythrocyte distribution width (RBC) [Ratio] 28.7 % High 11.5-15.0 [facility] Comment on above: Order Comment: Check Chest Tube Position, S/P Chest tube DC'd Performed By: #### 5 0103 ####[facility] [place] [address] Hematocrit (Bld) [Volume fraction] 29.1 % Low 36.0-45.0 [facility] Comment on above: Order Comment: Check Chest Tube Position, S/P Chest tube DC'd Performed By: #### 5 0103 ####[facility] Hemoglobin (Bld) [Mass/Vol] 8.3 g/dL Low 12.0-15.0 [facility] Comment on above: Order Comment: Check Chest Tube Position, S/P Chest tube DC'd Performed By: #### 5 0103 ####[facility] HYPO Slight Normal [facility] Comment on above: Order Comment: Check Chest Tube Position, S/P Chest tube DC'd Performed By: #### 5 0103 ####[facility] IMMATURE GRANS 0.5 % Normal 0.0-1.0 [facility] Comment on above: Order Comment: Check Chest Tube Position, S/P Chest tube DC'd Performed By: #### 5 0103 ####[facility] Lymphocytes (Bld) [#/Vol] 0.8 10*3/uL Low 1.2-4.0 [facility] Comment on above: Order Comment: Check Chest Tube Position, S/P Chest tube DC'd Performed By: #### 5 0103 ####[facility] Lymphocytes/100 WBC (Bld) 5.5 % Low 20.0-45.0 [facility] Comment on above: Order Comment: Check Chest Tube Position, S/P Chest tube DC'd Performed By: #### 5 0103 ####[facility] MCH (RBC) [Entitic mass] 21.7 pg Low 27.0-33.0 [facility] Comment on above: Order Comment: Check Chest Tube Position, S/P Chest tube DC'd Performed By: #### 5 0103 ####[facility] MCHC (RBC) [Mass/Vol] 28.5 g/dL Low 32.0-35.0 [facility] Comment on above: Order Comment: Check Chest Tube Position, S/P Chest tube DC'd Performed By: #### 5 0103 ####[facility] MCV (RBC) [Entitic vol] 76.2 fL Low 82.0-98.0 [facility] Comment on above: Order Comment: Check Chest Tube Position, S/P Chest tube DC'd Performed By: #### 5 3 ####[address] Monocytes (Bld) [#/Vol] 1.1 10*3/uL High 0.1-1.0 [facility] Comment on above: Order Comment: Check Chest Tube Position, S/P Chest tube DC'd Performed By: #### 5 3 ####[facility] MONOS 7.3 % Normal 5.0-12.0 [facility] Comment on above: Order Comment: Check Chest Tube Position, S/P Chest tube DC'd Performed By: #### 5 3 ####[facility] Neutrophils/100 WBC (Bld) 85.9 % High 40.0-72.0 [facility] Comment on above: Order Comment: Check Chest Tube Position, S/P Chest tube DC'd Performed By: #### 5 3 ####[address] Nucleated RBC/100 WBC (Bld) [Ratio] 0 % Normal 0-0 [facility] Comment on above: Order Comment: Check Chest Tube Position, S/P Chest tube DC'd Performed By: #### 5 0103 ####[facility]3000 [facility].[address] PLAT CNT 149 10*3/uL Low 150-400 [facility] Comment on above: Order Comment: Check Chest Tube Position, S/P Chest tube DC'd Performed By: #### 5 0103 ####[facility] POIK Slight Normal [facility] Comment on above: Order Comment: Check Chest Tube Position, S/P Chest tube DC'd Performed By: #### 5 0103 ####[facility]3000 [facility].[address] POLY Slight Normal [facility] Comment on above: Order Comment: Check Chest Tube Position, S/P Chest tube DC'd Performed By: #### 5 0103 ####[facility]3000 [facility].[address] RBC (Bld) [#/Vol] 3.82 10*6/uL Normal 3.80-5.00 [facility] Comment on above: Order Comment: Check Chest Tube Position, S/P Chest tube DC'd Performed By: #### 5 0103 ####[facility]3000 [facility].[address] WBC (Bld) [#/Vol] 15.41 10*3/uL High 4.00-10.60 [facility] Comment on above: Order Comment: Check Chest Tube Position, S/P Chest tube DC'd Performed By: #### 5 0103 ####[facility] COMP METABOLIC PANELon 03-09 Albumin [Mass/Vol] 3.8 g/dL Normal 3.5-5.7 [facility] Comment on above: Order Comment: No: D o not add to previous draw Performed By: #### 3 5200, 69321, 29544, 59146 #### [facility] [address] [place] [address], [place] ALKALINE PHOSPH 52 IU/L Normal 34-104 [facility] Comment on above: Order Comment: No: D o not add to previous draw Performed By: #### 3 5200, 45856, 67419, 76774 #### [facility] [address] [place] [address], [place] ALT [Catalytic activity/Vol] 13 U/L Normal 7-52 [facility] Comment on above: Order Comment: No: D o not add to previous draw Performed By: #### 3 5200, 53839, 58283, 06397 #### [facility] [address] [place] [address], [place] AST [Catalytic activity/Vol] 14 U/L Normal 13-39 [facility] Comment on above: Order Comment: No: D o not add to previous draw Performed By: #### 3 5200, 92017, 08428, 02376 #### [facility] [address] [place] [address], [place] Bilirubin [Mass/Vol] 0.4 mg/dL Normal 0.3-1.0 [facility] Comment on above: Order Comment: No: D o not add to previous draw Performed By: #### 3 5200, 76969, 24963, 47366 #### [facility] [address] [place] [address], [place] Calcium [Mass/Vol] 9.2 mg/dL Normal 8.6-10.3 [facility] Comment on above: Order Comment: No: D o not add to previous draw Performed By: #### 3 5200, 30785, 49813, 95417 #### [facility] [address] Chloride [Moles/Vol] 99 mmol/L Normal 98-107 [facility] Comment on above: Order Comment: No: D o not add to previous draw Performed By: #### 3 5200, 61059, 30261, 04696 #### [facility] [address] [place] [address], [facility] CO2 [Moles/Vol] 33 mmol/L High 21-31 [facility] Comment on above: Order Comment: No: D o not add to previous draw Performed By: #### 3 5200, 71876, 20671, 49525 #### [facility] 3000 [facility] [place] [address], [facility] Creatinine [Mass/Vol] 0.79 mg/dL Normal 0.55-1.02 [facility] Comment on above: Order Comment: No: D o not add to previous draw Performed By: #### 3 5200, 16381, 19263, 76484 #### [facility] 3000 [facility] Performed By: #### B LDCX1 #### [facility] [address] [place] [address] Dr. Kayley Hatfiedl GFR/1.73 sq M.predicted among non-blacks MDRD (S/P/Bld) [Vol rate/Area] mL/min/{1.73_m2} Normal >60 [facility] Comment on above: Order Comment: No: D o not add to previous draw Result Comment: [facility]'s estimated glomerular filtration rate (eGFR) will [...] of individuals. Performed By: #### 3 5200, 24788, 79818, 95901 #### [facility] [address] [place] [address], [place] Glucose [Mass/Vol] 125 mg/dL High 70-100 [facility] Comment on above: Order Comment: No: D o not add to previous draw Performed By: #### 3 5200, 54143, 99004, 40695 #### [facility] [address] [place] [address], [place] Potassium [Moles/Vol] 4.7 mmol/L Normal 3.5-5.1 [facility] Comment on above: Order Comment: No: D o not add to previous draw Performed By: #### 3 5200, 87792, 32514, 79444 #### [facility] [address] [place] [address], [place] Protein [Mass/Vol] 5.9 g/dL Low 6.0-8.3 [facility] Comment on above: Order Comment: No: D o not add to previous draw Performed By: #### 3 5200, 80693, 71260, 15561 #### [facility] [address] [place] [address], [place] Sodium [Moles/Vol] 136 mmol/L Normal 136-145 [facility] Comment on above: Order Comment: No: D o not add to previous draw Performed By: #### 3 5200, 60006, 45883, 77675 #### [facility] [address] [place] [address], [place] Urea nitrogen [Mass/Vol] 12 mg/dL Normal 7-25 [facility] Comment on above: Order Comment: No: D o not add to previous draw Performed By: #### 3 5200, 56603, 24863, 68666 #### [facility] [address] [place] [address], [place] LIPID PROFILEon 03-09-2022 Cholesterol [Mass/Vol] 160 mg/dL Normal 120-200 [facility] Comment on above: Order Comment: No: D o not add to previous draw Result Comment: CHOL ESTEROL REFERENCE RANGE: 20 YEARS AND OLDER CARDIOVASCULAR RISK Less than 200 mg/dl Low Risk 200 to 239 mg/dl Borderline Risk 240 mg/dl and greater High Risk Performed By: #### 3 5200, 89838, 65019, 73466 #### [facility] [address] [place] [address], [place] Cholesterol in HDL [Mass/Vol] 76 mg/dL Normal 23-92 [facility] Comment on above: Order Comment: No: D o not add to previous draw Result Comment: Slig ht variation in normal range could be due to gender and/or age. HDL CHOLESTEROL REFERENCE RANGE: 20 years and older Cardiovascular Risk > or =60 mg/dL Desirable 40 TO 59 mg/dL Low Risk <40 mg/dL High Risk Performed By: #### 3 5200, 94922, 49237, 76803 #### [facility] [address] [place] [address], [place] Cholesterol in LDL [Mass/Vol] 48 mg/dL Normal 0-130 [facility] Comment on above: Order Comment: No: D o not add to previous draw Result Comment: LDL IS A CALCULATION LDL IS ONLY VALID IF THE TRIG IS LESS THAN 400. Performed By: #### 3 5200, 47524, 09906, 19762 #### [facility] [address] [place] [address], [place] Cholesterol.total/Cho lesterol in HDL [Mass ratio] 2.1 {ratio} Normal .0-4.5 [facility] Comment on above: Order Comment: No: D o not add to previous draw Performed By: #### 3 5200, 61259, 23368, 45545 #### [facility] [address] [place] [address], [place] NON-HDL CHOLESTEROL 84 mg/dL Normal [facility] Comment on above: Order Comment: No: D o not add to previous draw Performed By: #### 3 5200, 39610, 66306, 52394 #### [facility] [address] Triglyceride [Mass/Vol] 179 mg/dL High 40-149 [facility] Comment on above: Order Comment: No: D o not add to previous draw Result Comment: TRIG LYCERIDE REFERENCE RANGE: 20 YEARS AND OLDER CARDIOVASCULAR RISK LESS THAN 150 mg/dl LOW RISK 150 TO 199 mg/dl BORDERLINE RISK 200 mg/dl AND GREATER HIGH RISK Performed By: #### 3 5200, 11555, 71867, 41184 #### [facility] [address] VLDL CHOL 36 mg/dL Normal 0-40 [facility] Comment on above: Order Comment: No: D o not add to previous draw Performed By: #### 3 5200, 71657, 41373, 19668 #### [facility] [address] POC GLUCOSE LABon 03-09-2022 Glucose [Mass/Vol] 105 mg/dL High 70-100 [facility] Comment on above: Performed By: #### 8 5499 ####[facility].[address] POC SARS COV2 ANTIGEN NEGATI VEon 03-09-2022 POC SARS COV2 ANTIGEN NEG Negative Normal NEGATIVE [facility] Comment on above: Result Comment: Nega [...] antigen from SARS-CoV-2 in direct nasopharyngeal swab (CARDIO CLINICIAN) specimens from individuals who are suspected of [...] of Accreditation. Performed By: #### 3 2044 ####[facility] [place] [address] PORTABLE CHEST 1 VIEWon PORTABLE CHEST 1 VIEW [facility] Department of Radiology [address] [place] [address] Patient Name: LISE CANALES : 1955 Sex: F Age: Race: White Pt. Location: [id number] Patient Status: I Ordered Date: 03/09/2022 8:55:00 [...] COPD. Electronically signed: Derek Ingram. Transcribed by: [email or web address], User Resident: Electronically Signed by: DEREK INGRAM @ 03/09/2022 02:48 PM Normal [facility] Comment on above: Order Comment: Check Chest Tube Position, S/P Chest tube DC'd TROPONIN-Ion 03-09-2022 Troponin I.cardiac [Mass/Vol] 0.00 ng/mL Normal 0.00-0.04 [facility] Comment on above: Order Comment: No: D o not add to previous draw Result Comment: REFE RENCE RANGES: 0.00 - 0.04 ng/ml NORMAL 0.05 - 0.50 ng/ml INDETERMINATE > 0.50 ng/ml CONSISTENT WITH AN M.I. Performed By: #### 3 5200, 57972, 95552, 12940 #### [facility] [address] [facility] [place] [address], [facility] Troponin I.cardiac [Mass/Vol] 0.01 ng/mL Normal 0.00-0.04 [facility] Comment on above: Order Comment: No: D o not add to previous draw Result Comment: REFE RENCE RANGES: 0.00 - 0.04 ng/ml NORMAL 0.05 - 0.50 ng/ml INDETERMINATE > 0.50 ng/ml CONSISTENT WITH AN M.I. Performed By: #### 3 5200 #### [facility] [address] Troponin I.cardiac [Mass/Vol] 0.00 ng/mL Normal 0.00-0.04 [facility] Comment on above: Order Comment: No: D o not add to previous draw Result Comment: REFE RENCE RANGES: 0.00 - 0.04 ng/ml NORMAL 0.05 - 0.50 ng/ml INDETERMINATE > 0.50 ng/ml CONSISTENT WITH AN M.I. Performed By: #### 3 5200, 26084, 48991, 18789 #### [facility] 3000 [facility]. [address] TSH3 WITH REFLEX FT4on 03-09 TSH 3RD GENERATION 0.60 uIU/mL Normal 0.34-5.60 [facility] Comment on above: Order Comment: No: D o not add to previous draw Performed By: #### 3 5200, 50898, 72181, 12647 #### [facility] 3000 [facility]. [address] URINALYSIS REFLEXon 03-09-20 22 Appearance (U) CLEAR Normal CLEAR [facility] Comment on above: Order Comment: Check Chest Tube Position, S/P Chest tube DC'd Performed By: #### 3 0965 ####[facility]3000 [facility].[address] Bilirubin Ql (U) Negative Normal NEGATIVE [facility] Comment on above: Order Comment: Check Chest Tube Position, S/P Chest tube DC'd Performed By: #### 3 0965 ####[facility] [place] [address], [facility] Color (U) STRAW Abnormal YELLOW [facility] Comment on above: Order Comment: Check Chest Tube Position, S/P Chest tube DC'd Performed By: #### 3 0965 ####[facility] EPIS OCC Normal FEW,OCC,NONE SEEN [facility] Comment on above: Order Comment: Check Chest Tube Position, S/P Chest tube DC'd Performed By: #### 3 0965 ####[facility] Glucose Ql (U) Negative Normal NEGATIVE [facility] Comment on above: Order Comment: Check Chest Tube Position, S/P Chest tube DC'd Performed By: #### 3 0965 ####[facility] Hemoglobin Ql (U) MODERATE Abnormal NEGATIVE [facility] Comment on above: Order Comment: Check Chest Tube Position, S/P Chest tube DC'd Performed By: #### 3 0965 ####[address] KETONE Negative Normal NEGATIVE [facility] Comment on above: Order Comment: Check Chest Tube Position, S/P Chest tube DC'd Performed By: #### 3 0965 ####[place] [address] [address] LEUK SHARMIN SMALL Abnormal NEGATIVE [facility] Comment on above: Order Comment: Check Chest Tube Position, S/P Chest tube DC'd Performed By: #### 3 0965 ####[address] MUCUS THREADS OCC Abnormal NONE SEEN [facility] Comment on above: Order Comment: Check Chest Tube Position, S/P Chest tube DC'd Performed By: #### 3 0965 ####[place] [address] Nitrite Ql (U) Negative Normal NEGATIVE [facility] Comment on above: Order Comment: Check Chest Tube Position, S/P Chest tube DC'd Performed By: #### 3 0965 ####[facility]3000 [facility].[address] pH (U) 6.0 [pH] Normal 5.0-8.0 [facility] Comment on above: Order Comment: Check Chest Tube Position, S/P Chest tube DC'd Performed By: #### 3 0965 ####[facility]3000 [facility].[address] Protein Ql (U) Negative Normal NEGATIVE [facility] Comment on above: Order Comment: Check Chest Tube Position, S/P Chest tube DC'd Performed By: #### 3 0965 ####[facility]3000 [facility].[address] RBC 6-10 Abnormal NONE SEEN [facility] Comment on above: Order Comment: Check Chest Tube Position, S/P Chest tube DC'd Performed By: #### 3 [id number] ####[facility] SPEC GRAV 1.015 Normal 1.015-1.020 [facility] Comment on above: Order Comment: Check Chest Tube Position, S/P Chest tube DC'd Performed By: #### 3 0965 ####[facility].[address] WBC UA 11-20 Abnormal NONE SEEN [facility] Comment on above: Order Comment: Check Chest Tube Position, S/P Chest tube DC'd Performed By: #### 3 0965 ####[facility].[address] CBC W MANUAL DIFFon 03-08-20 22 ATYPICAL LYMPH # Normal [facility] Comment on above: Performed By: #### C VDTBH #### [facility] [address] [place] [address] Dr. Kayley Hatfield ATYPICAL LYMPH % Normal [facility] Comment on above: Performed By: #### C VDTBH #### [facility] [address] [place] [address] Dr. Kayley Hatfield BAND # Normal 0.0-0.3 [facility] Comment on above: Performed By: #### C VDTBH #### [facility] [address] [place] [address] Dr. Kayley Hatfield BAND % Normal 0-5 [facility] Comment on above: Performed By: #### C VDTBH #### [facility] [address] [place] [address] Dr. Kayley Hatfield BASOM # 0.00 103/ul Normal 0.00-0.10 [facility] Comment on above: Performed By: #### C VDTBH #### [facility] [address] [place] [address] Dr. Kayley Hatfield BASOM % 0.0 % Critically low 0.2-2.0 [facility] Comment on above: Performed By: #### C VDTBH #### [facility] [address] [place] [address] Dr. Kayley Hatfield BLAST # Normal [facility] Comment on above: Performed By: #### C VDTBH #### [facility] [address] [place] [address] Dr. Kayley Hatfield BLAST % Normal [facility] Comment on above: Performed By: #### C VDTBH #### [facility] [address] [place] [address] Dr. Kayley Hatfield CORRECTED WBC Normal 4.0-11.0 [facility] Comment on above: Performed By: #### C VDTBH #### [facility] [address] [place] [address] Dr. Kayley Hatfield EOS # 0.14 103/ul Normal 0.00-0.70 [facility] Comment on above: Performed By: #### C VDTBH #### [facility] [address] [place] [address] Dr. Kayley Hatfield EOS% 1.0 % Normal 0.9-7.0 [facility] Comment on above: Performed By: #### C VDTBH #### [facility] [address] [address] [address] Kayley Hatfield HCT 27.5 % Critically low 36.0-48.0 [facility] Comment on above: Performed By: #### C VDTBH #### [facility] [address] [address] [address] Kayley Hatfield HGB 7.9 g/dl Critically low 12.0-16.0 [facility] Comment on above: Performed By: #### C VDTBH #### [facility] [address] [address] [address] Kayley Hatfield LYMPHM # 1.42 103/ul Normal 1.20-3.80 [facility] Comment on above: Performed By: #### C VDTBH #### [facility] [address] [address] [address] Kayley Hatfield LYMPHM% 10.0 % Critically low 20.5-60.0 [facility] Comment on above: Performed By: #### C VDTBH #### [facility] [address] [address] [address] Kayley Hatfield MCH 21.5 pg Critically low 26.7-34.0 [facility] Comment on above: Performed By: #### C VDTBH #### [facility] [address] [address] [address] Kayley Hatfield MCHC 28.7 g/dl Critically low 29.9-35.2 [facility] Comment on above: Performed By: #### C VDTBH #### [facility] [address] [address] [address] Kayley Hatfield MCV 74.7 fL Critically low 81.0-99.0 [facility] Comment on above: Performed By: #### C VDTBH #### [facility] [address] [address] [address] Kayley Hatfield METAMYELOCYTE # Normal [facility] Comment on above: Performed By: #### C VDTBH #### [facility] [address] [address] [address] Kayley Hatfield METAMYELOCYTE % Normal [facility] Comment on above: Performed By: #### C VDTBH #### [facility] [address] [place] [address] Dr. Kayley Hatfield MONOM# 2.13 103/ul Critically high 0.30-0.80 [facility] Comment on above: Performed By: #### C VDTBH #### [facility] [address] [place] [address] Dr. Kayley Hatfield MONOM% 15.0 % Critically high 1.7-12.0 [facility] Comment on above: Performed By: #### C VDTBH #### [facility] [address] [place] [address] Dr. Kayley Hatfield MPV 9.5 fL Normal 9.5-13.5 [facility] Comment on above: Performed By: #### C VDTBH #### [facility] [address] [place] [address] Dr. Kayley Hatfield MYELOCYTE # Normal [facility] Comment on above: Performed By: #### C VDTBH #### [facility] [address] [place] [address] Dr. Kayley Hatfield MYELOCYTE % Normal [facility] Comment on above: Performed By: #### C VDTBH #### [facility] [address] [place] [address] Dr. Kayley Hatfield NRBC Normal [facility] Comment on above: Performed By: #### C VDTBH #### [facility] [address] [place] [address] Dr. Kayley Hatfield PLT 180 103/ul Normal 150-450 [facility] Comment on above: Performed By: #### C VDTBH #### [facility] [address] [place] [address] Dr. Kayley Hatfield RBC 3.68 106/ul Critically low 4.20-5.40 [facility] Comment on above: Performed By: #### C VDTBH #### [facility] [address] [place] [address] Dr. Kayley Hatfield RDW 27.5 % Critically high 11.0-15.0 [facility] Comment on above: Performed By: #### C VDTBH #### [facility] [address] [place] [address] Dr. Kayley Hatfield SEG # 10.51 103/ul Critically high 1.40-6.50 [facility] Comment on above: Performed By: #### C VDTBH #### [facility] [address] [place] [address] Dr. Kayley Hatfield SEG % 74.0 % Normal 43.0-75.0 [facility] Comment on above: Performed By: #### C VDTBH #### [facility] [address] [place] [address] Dr. Kayley Hatfield WBC 14.2 103/ul Critically high 4.0-11.0 [facility] Comment on above: Performed By: #### C VDTBH #### [facility] [address] [place] [address] Dr. Kayley Hatfield PRBC LEUKOREDUCEDon 03-08-20 22 ABO and Rh group Nom (Bld) Cross Match Result Compatible Unit Blood Type O Pos Unit Number [id number] Status Information Transfused Product ID Red Blood Cells Product Code [id number] Cross Match Result Compatible Blood Bank Notes CALLED TO VIC IN ICU @1657 Unit Blood Type O Pos Unit Number [id number] Status Information Transfused Product ID Red Blood Cells Product Code [id number] Normal [facility] Comment on above: Performed By: #### P RBC #### [facility] [address] [place] [address] Dr. Kayley Hatfield PROF CHEM 8 (BAS METB)on Anion gap [Moles/Vol] 10.1 mmol/L Normal [facility] Comment on above: Performed By: #### B [id number] #### [facility] [address] [place] [address] Dr. Kayley Hatfield Calcium [Mass/Vol] 8.8 mg/dL Normal 8.5-10.1 [facility] Comment on above: Performed By: #### B [email or web address] #### [facility] [address] [address] [address] Kayley Hatfield Chloride [Moles/Vol] 100 mmol/L Normal 98-107 [facility] Comment on above: Performed By: #### B [email or web address] #### [facility] [address] [address] [address] Kayley Hatfield CO2 [Moles/Vol] 34.2 mmol/L Critically high 21.0-32.0 [facility] Comment on above: Performed By: #### B LDCX1 #### [facility] [address] [address] [address] Kayley Hatfield EGFR-AF NEW ZEALANDER >60 Normal >=60 [facility] Comment on above: Performed By: #### B LDCX1 #### [facility] [address] [address] [address] Kayley Hatfield EGFR-NON AF NEW ZEALANDER >60 Normal >=60 [facility] Comment on above: Performed By: #### B [email or web address] #### [facility] [address] [address] [address] Kayley Hatfield Glucose [Mass/Vol] 107 mg/dL Critically high 74-106 [facility] Comment on above: Performed By: #### B [email or web address] #### [facility] [address] [address] [address] Kayley Hatfield Potassium [Moles/Vol] 4.3 mmol/L Normal 3.5-5.1 [facility] Comment on above: Performed By: #### B LDCX1 #### [facility] [address] [address] [address] Kayley Hatfield Sodium [Moles/Vol] 140 mmol/L Normal 136-145 [facility] Comment on above: Performed By: #### B [email or web address] #### [facility] [address] [address] [address] Kayley Hatfield Urea nitrogen [Mass/Vol] 15.0 mg/dL Normal 7.0-18.0 [facility] Comment on above: Performed By: #### B [email or web address] #### [facility] [address] [address] [address] Kayley Hatfield Urea nitrogen/Creatinine [Mass ratio] 19.0 mg/mg Normal [facility] Comment on above: Performed By: #### B [email or web address] #### [facility] [address] [place] [address] Dr. Kayley Hatfield XR CHEST 1 Von [...] Date: 2022-03-08 07:02 Normal [facility] CBC W MANUAL DIFFon 03-07-20 22 ACANTHOCYTES SLIGHT Normal [facility] Comment on above: Performed By: #### B [email or web address] #### [facility] [address] [place] [address] Dr. Kayley Hatfield ANISOCYTOSIS 2+ Normal [facility] Comment on above: Performed By: #### B LDCX1 #### [facility] [address] [address] [address] Kayley Hatfield ATYPICAL LYMPH # Normal [facility] Comment on above: Performed By: #### B [email or web address] #### [facility] [address] [place] [address] Dr. Kayley Hatfield ATYPICAL LYMPH % Normal [facility] Comment on above: Performed By: #### B [email or web address] #### [facility] [address] [place] [address] Dr. Kayley Hatfield BAND # 0.0 103/ul Normal 0.0-0.3 [facility] Comment on above: Performed By: #### B [email or web address] #### [facility] [address] [place] [address] Dr. Kayley Hatfield BAND % 0 % Normal 0-5 [facility] Comment on above: Performed By: #### B [email or web address] #### [facility] [address] [place] [address] Dr. Kayley Hatfield BASOM # 0.00 103/ul Normal 0.00-0.10 [facility] Comment on above: Performed By: #### B [email or web address] #### [facility] [address] [place] [address] Dr. Kayley Hatfield BASOM % 0.0 % Critically low 0.2-2.0 [facility] Comment on above: Performed By: #### B LDCX1 #### [facility] [address] [place] [address] Dr. Kayley Hatfield BLAST # Normal [facility] Comment on above: Performed By: #### B LDCX1 #### [facility] [address] [place] [address] Dr. Kayley Hatfield BLAST % Normal [facility] Comment on above: Performed By: #### B LDCX1 #### [facility] [address] [place] [address] Dr. Kayley Hatfield ANDREE CELLS SLIGHT Normal [facility] Comment on above: Performed By: #### B [email or web address] #### [facility] [address] [place] [address] Dr. Kayley Hatfield CORRECTED WBC Normal 4.0-11.0 [facility] Comment on above: Performed By: #### B LDCX1 #### [facility] [address] [place] [address] Dr. Kayley Hatfield EOS # 0.16 103/ul Normal 0.00-0.70 [facility] Comment on above: Performed By: #### B [email or web address] #### [facility] [address] [place] [address] Dr. Kayley Hatfield EOS% 1.0 % Normal 0.9-7.0 [facility] Comment on above: Performed By: #### B [email or web address] #### [facility] [address] [address] [address] Kayley Hatfield GIANT PLATELETS SEEN Normal [facility] Comment on above: Performed By: #### B LDCX1 #### [facility] [address] [address] [address] Kayley Hatfield HCT 31.1 % Critically low 36.0-48.0 [facility] Comment on above: Performed By: #### B LDCX1 #### [facility] [address] [address] [address] Kayley Hatfield HGB 9.1 g/dl Critically low 12.0-16.0 [facility] Comment on above: Performed By: #### B LDCX1 #### [facility] [address] [address] [address] Kayley Hatfield HYPOCHROMASIA 1+ Normal [facility] Comment on above: Performed By: #### B [email or web address] #### [facility] [address] [address] [address] Kayley Hatfield LYMPHM # 2.09 103/ul Normal 1.20-3.80 [facility] Comment on above: Performed By: #### B [email or web address] #### [facility] [address] [address] [address] Kayley Hatfield LYMPHM% 13.0 % Critically low 20.5-60.0 [facility] Comment on above: Performed By: #### B LDCX1 #### [facility] [address] [address] [address] Kayley Hatfield MCH 21.4 pg Critically low 26.7-34.0 [facility] Comment on above: Performed By: #### B LDCX1 #### [facility] [address] [address] [address] Kayley Hatfield MCHC 29.3 g/dl Critically low 29.9-35.2 [facility] Comment on above: Performed By: #### B LDCX1 #### [facility] [address] [address] [address] Kayley Hatfield MCV 73.0 fL Critically low 81.0-99.0 [facility] Comment on above: Performed By: #### B LDCX1 #### [facility] [address] [place] [address] Dr. Kayley Hatfield METAMYELOCYTE # Normal [facility] Comment on above: Performed By: #### B [email or web address] #### [facility] [address] [place] [address] Dr. Kayley Hatfield METAMYELOCYTE % Normal [facility] Comment on above: Performed By: #### B LDCX1 #### [facility] [address] [place] [address] Dr. Kayley Hatfield MICROCYTOSIS SLIGHT Normal [facility] Comment on above: Performed By: #### B [email or web address] #### [facility] [address] [place] [address] Dr. Kayley Hatfield MONOM# 0.48 103/ul Normal 0.30-0.80 [facility] Comment on above: Performed By: #### B LDCX1 #### [facility] [address] [place] [address] Dr. Kayley Hatfield MONOM% 3.0 % Normal 1.7-12.0 [facility] Comment on above: Performed By: #### B [email or web address] #### [facility] [address] [place] [address] Dr. Kayley Hatfield MPV 8.9 fL Critically low 9.5-13.5 [facility] Comment on above: Performed By: #### B LDCX1 #### [facility] [address] [place] [address] Dr. Kayley Hatfield MYELOCYTE # Normal [facility] Comment on above: Performed By: #### B LDCX1 #### [facility] [address] [place] [address] Dr. Kayley Hatfeild MYELOCYTE % Normal [facility] Comment on above: Performed By: #### B LDCX1 #### [facility] [address] [place] [address] Dr. Kayley Hatfield NRBC Normal [facility] Comment on above: Performed By: #### B LDCX1 #### [facility] [address] [address] [address] Kayley Hatfield PLT 243 103/ul Normal 150-450 [facility] Comment on above: Performed By: #### B [email or web address] #### [facility] [id number] Kayley Hatfield RBC 4.26 106/ul Normal 4.20-5.40 [facility] Comment on above: Performed By: #### B LDCX1 #### [facility] [address] [address] [address] Kayley Hatfield RDW 27.1 % Critically high 11.0-15.0 [facility] Comment on above: Performed By: #### B LDCX1 #### [facility] [address] [address] [address] Kayley Hatfield SEG # 13.36 103/ul Critically high 1.40-6.50 [facility] Comment on above: Performed By: #### B LDCX1 #### [facility] [address] [address] [address] Kayley Hatfield SEG % 83.0 % Critically high 43.0-75.0 [facility] Comment on above: Performed By: #### B LDCX1 #### [facility] [address] [address] [address] Kayley Hatfield WBC 16.1 103/ul Critically high 4.0-11.0 [facility] Comment on above: Performed By: #### B [email or web address] #### [facility] [address] [place] [address] CHEST WO CONon [...] ASAEL MALDONADO Date: 2022-03-07 09:42 Normal [facility] HEMOGLOBIN AND HEMATOCRITon 03-07-2022 Hematocrit (Bld) [Volume fraction] 31.8 % Critically low 36.0-48.0 [facility] Comment on above: Performed By: #### H GBHCT #### [facility] [address] [place] [address] Dr. Kayley Hatfield Hemoglobin (Bld) [Mass/Vol] 9.5 g/dL Critically low 12.0-16.0 [facility] Comment on above: Performed By: #### H GBHCT #### [facility] [address] [place] [address] Dr. Kayley Hatfield RETICULOCYTEon 03-07-2022 RETIC 1.92 % Normal 0.60-3.10 [facility] Comment on above: Performed By: #### O BSCRN #### [facility] [address] [place] [address] Dr. Kayley Hatfield XR CHEST 1 Von [...] Date: 2022-03-07 12:54 Normal [facility] XR CHEST 1 V EXAM: XR [...] ASAEL MALDONADO Date: 2022-03-07 07:10 Normal [facility] BNPon 03-06-2022 Natriuretic peptide B (Bld) [Mass/Vol] 441.0 pg/mL Normal <=900.0 [facility] Comment on above: Performed By: #### H GBHCT #### [facility] [address] [place] [address] Dr. Kayley Hatfield CBC AUTO DIFFon 03-06-2022 BASO # 0.1 103/ul Normal 0.0-0.1 [facility] Comment on above: Performed By: #### O BSCRN #### [facility] [address] [place] [address] Dr. Kayley Hatfield Basophils/100 WBC (Bld) 0.7 % Normal 0.2-2.0 [facility] Comment on above: Performed By: #### O BSCRN #### [facility] [address] [place] [address] Dr. Kayley Hatfield EO # 0.1 103/ul Normal 0.0-0.7 [facility] Comment on above: Performed By: #### O BSCRN #### [facility] [address] [address] [address] Kayley Hatfield Eosinophils/100 WBC (Bld) 0.7 % Critically low 0.9-7.0 [facility] Comment on above: Performed By: #### O BSCRN #### [facility] [address] [place] [address] Dr. Kayley Hatfield Erythrocyte distribution width (RBC) [Ratio] 20.0 % Critically high 11.0-15.0 [facility] Comment on above: Performed By: #### O BSCRN #### [facility] [address] [place] [address] Dr. Kayley Hatfield Hematocrit (Bld) [Volume fraction] 20.1 % Critically low 36.0-48.0 [facility] Comment on above: Performed By: #### O BSCRN #### [facility] [address] [place] [address] Dr. Kayley Hatfield Hemoglobin (Bld) [Mass/Vol] 4.9 g/dL Critically low 12.0-16.0 [facility] Comment on above: Performed By: #### O BSCRN #### [facility] [address] [place] [address] Dr. Kayley Hatfield IG # 0.12 10e3/ul Critically high 0.00-0.03 [facility] Comment on above: Performed By: #### O BSCRN #### [facility] [address] [place] [address] Dr. Kayley Hatfield IG % 0.8 % Critically high 0.0-0.5 [facility] Comment on above: Performed By: #### O BSCRN #### [facility] [address] [place] [address] Dr. Kayley Hatfield LYMPH # 1.0 103/ul Critically low 1.2-3.8 [facility] Comment on above: Performed By: #### O BSCRN #### [facility] [address] [place] [address] Dr. Kayley Hatfield Lymphocytes/100 WBC (Bld) 6.5 % Critically low 20.5-60.0 [facility] Comment on above: Performed By: #### O BSCRN #### [facility] [address] [place] [address] Dr. Kayley Hatfield MANUAL DIFF REQ NO Normal [facility] Comment on above: Performed By: #### O BSCRN #### [facility] [address] [place] [address] Dr. Kayley Hatfield MCH (RBC) [Entitic mass] 15.2 pg Critically low 26.7-34.0 [facility] Comment on above: Performed By: #### O BSCRN #### [facility] [address] [place] [address] Dr. Kayley Hatfield MCHC (RBC) [Mass/Vol] 24.4 g/dL Critically low 29.9-35.2 [facility] Comment on above: Performed By: #### O BSCRN #### [facility] [address] [place] [address] Dr. Kayley Hatfield MCV (RBC) [Entitic vol] 62.2 fL Critically low 81.0-99.0 [facility] Comment on above: Performed By: #### O BSCRN #### [facility] [address] [place] [address] Dr. Kayley Hatfield MONO # 0.5 103/ul Normal 0.3-0.8 [facility] Comment on above: Performed By: #### O BSCRN #### [facility] [address] [place] [address] Dr. Kayley Hatfield Monocytes/100 WBC (Bld) 3.5 % Normal 1.7-12.0 [facility] Comment on above: Performed By: #### O BSCRN #### [facility] [address] [place] [address] Dr. Kayley Hatfield NEUT # 13.2 103/ul Critically high 1.4-6.5 [facility] Comment on above: Performed By: #### O BSCRN #### [facility] [address] [address] [address] Kayley Hatfield Neutrophils/100 WBC (Bld) 87.8 % Critically high 43.0-75.0 [facility] Comment on above: Performed By: #### O BSCRN #### [facility] [address] [place] [address] Dr. Kayley Hatfield Platelet mean volume (Bld) [Entitic vol] 9.1 fL Critically low 9.5-13.5 [facility] Comment on above: Performed By: #### O BSCRN #### [facility] [address] [place] [address] Dr. Kayley Hatfield PLT 384 103/ul Normal 150-450 [facility] Comment on above: Performed By: #### O BSCRN #### [facility] [address] [place] [address] Dr. Kayley Hatfield RBC 3.23 106/ul Critically low 4.20-5.40 [facility] Comment on above: Performed By: #### O BSCRN #### [facility] [address] [place] [address] Dr. Kayley Hatfield WBC 15.1 103/ul Critically high 4.0-11.0 [facility] Comment on above: Performed By: #### O BSCRN #### [facility] [address] [place] [address] Dr. Kayley Hatfield CULTURE BLOODon 03-06-2022 Microscopic examination of blood, culture Culture Observations: NO GROWTH AT 5 DAYS. Normal [facility] Comment on above: Performed By: #### C VDTBH #### [facility] [address] [place] [address] Dr. Kayley Hatfield Performed By: #### B [id number] #### [facility] [address] [place] [address] Dr. Kayley Hatifeld [facility]-07 SARS-CoV-2 (COVID-19) RNA ELBA+probe Ql (Unsp spec) Not detected Normal NOT DETECTED [facility] Comment on above: Result Comment: When [...] for this test is supported by the Petroleum Production Engineer of Health and Human Service's declaration that [...] By: #### C VDTBH #### [facility] [address] [place] [address] Dr. Kayley Hatfield ER URINE PROFILEon 2 Bilirubin Ql (U) Negative Normal NEGATIVE [facility] Comment on above: Performed By: #### P RBC #### [facility] [address] [place] [address] Dr. Kayley Hatfield Clarity (U) CLEAR Normal CLEAR [facility] Comment on above: Performed By: #### P RBC #### [facility] [address] [place] [address] Dr. Kayley Hatfield Color (U) LT. YELLOW Normal YELLOW [facility] Comment on above: Performed By: #### P RBC #### [facility] [address] [place] [address] Dr. Kayley Hatfield ERUAHD A micrscopic examination will be performed if indicated. Normal [facility] Comment on above: Performed By: #### P RBC #### [facility] [address] [place] [address] Dr. Kayley Hatfield Glucose Ql (U) Negative Normal NEGATIVE [facility] Comment on above: Performed By: #### P RBC #### [facility] [address] [place] [address] Dr. Kayley Hatfield Hemoglobin Ql (U) Negative Normal NEGATIVE [facility] Comment on above: Performed By: #### P RBC #### [facility] [address] [place] [address] Dr. Kayley Hatfield Ketones Ql (U) Negative Normal NEGATIVE [facility] Comment on above: Performed By: #### P RBC #### [facility] [address] [place] [address] Dr. Kayley Hatfield LEUKOCYTES Negative Normal NEGATIVE [facility] Comment on above: Performed By: #### P RBC #### [facility] [address] [place] [address] Dr. Kayley Hatfield Nitrite Ql (U) Negative Normal NEGATIVE [facility] Comment on above: Performed By: #### P RBC #### [facility] [address] [place] [address] Dr. Kayley Hatfield pH (U) 6.0 [pH] Normal 5-9 [facility] Comment on above: Performed By: #### P RBC #### [facility] [address] [place] [address] Dr. Kayley aHtfield SPEC GRAVITY 1.010 Normal 1.005-<=1.025 [facility] Comment on above: Performed By: #### P RBC #### [facility] [address] [place] [address] Dr. Kayley Hatfield UA PROTEIN Negative Normal NEGATIVE/ TRACE [facility] Comment on above: Performed By: #### P RBC #### [facility] [address] [place] [address] Dr. Kayley Hatfield UR MICRO IND NOT INDICATED Normal [facility] [place] Comment on above: Performed By: #### P RBC #### [facility] [address] [place] [address] Dr. Kayley Hatfield Urobilinogen Qn (U) 0.2 {Lu'U}/dL Normal 0.2 - 1. 0 [facility] Comment on above: Performed By: #### P RBC #### [facility] [address] [place] [address] Dr. Kayley Hatfield FERRITINon 03-06-2022 Ferritin [Mass/Vol] 4.0 ng/mL Critically low 8.0-252.0 [facility] Comment on above: Performed By: #### O BSCRN #### [facility] [address] [address] [address] Kayley Hatfield IRON AND TIBCon 03-06-2022 % SATURATION 2.3 % Normal [facility] Comment on above: Performed By: #### C VDTBH #### [facility] [address] [address] [address] Kayley Hatfield Iron [Mass/Vol] 12.0 ug/dL Critically low 50.0-170.0 [facility] Comment on above: Performed By: #### C VDTBH #### [facility] [address] [place] [address] Dr. Kayley Hatfield TIBC DIRECT 532.0 ug/dL Critically high 250.0-450.0 [facility] Comment on above: Performed By: #### C VDTBH #### [facility] [address] [place] [address] Dr. Kayley Hatfield OCC BLD IMMUNO SCREENon 02-07 OCCULT BLOOD Negative Normal NEGATIVE [facility] Comment on above: Performed By: #### O BSCRN #### [facility] [address] [place] [address] Dr. Kayley Hatfield PROF 14(COMP METB)on 022 Albumin [Mass/Vol] 3.6 g/dL Normal 3.4-5.0 [facility] Comment on above: Performed By: #### H GBHCT #### [facility] [address] [place] [address] Dr. Kayley Hatfield Albumin/Globulin [Mass ratio] 1.2 {ratio} Normal [facility] Comment on above: Performed By: #### H GBHCT #### [facility] [address] [place] [address] Dr. Kayley Hatfield ALP [Catalytic activity/Vol] 71 U/L Normal 46-116 [facility] Comment on above: Performed By: #### H GBHCT #### [facility] [address] [address] [address] Kayley Hatfield ALT [Catalytic activity/Vol] 20 U/L Normal 14-59 [facility] Comment on above: Performed By: #### H GBHCT #### [facility] [address] [address] [address] Kayley Hatfield Anion gap [Moles/Vol] 9.8 mmol/L Normal [facility] Comment on above: Performed By: #### H GBHCT #### [facility] [address] [address] [address] Kayley Hatfield AST [Catalytic activity/Vol] 12 U/L Critically low 15-37 [facility] Comment on above: Performed By: #### H GBHCT #### [facility] [address] [address] [address] Kayley Hatfield Bilirubin [Mass/Vol] 0.4 mg/dL Normal 0.2-1.0 [facility] Comment on above: Performed By: #### H GBHCT #### [facility] [address] [address] [address] Kayley Hatfield Calcium [Mass/Vol] 9.0 mg/dL Normal 8.5-10.1 [facility] Comment on above: Performed By: #### H GBHCT #### [facility] [address] [address] [address] Kayley Hatfield Chloride [Moles/Vol] 99 mmol/L Normal 98-107 [facility] Comment on above: Performed By: #### H GBHCT #### [facility] [address] [address] [address] Kayley Hatfield CO2 [Moles/Vol] 31.5 mmol/L Normal 21.0-32.0 [facility] Comment on above: Performed By: #### H GBHCT #### [facility] [address] [address] [address] Kayley Hatfield Creatinine [Mass/Vol] 0.89 mg/dL Normal 0.55-1.02 [facility] Comment on above: Performed By: #### H GBHCT #### [facility] [address] [address] [address] Kayley Hatfield EGFR-AF NEW ZEALANDER >60 Normal >=60 [facility] Comment on above: Performed By: #### H GBHCT #### [facility] [address] [address] [address] Kayley Hatfield EGFR-NON AF NEW ZEALANDER >60 Normal >=60 [facility] Comment on above: Performed By: #### H GBHCT #### [facility] [address] [address] [address] Kayley Hatfield Globulin (S) [Mass/Vol] 3.1 g/dL Normal [facility] Comment on above: Performed By: #### H GBHCT #### [facility] [address] [address] [address] Kayley Hatfield Glucose [Mass/Vol] 174 mg/dL Critically high 74-106 [facility] Comment on above: Performed By: #### H GBHCT #### [facility] [address] [address] [address] Kayley Hatfield Potassium [Moles/Vol] 4.3 mmol/L Normal 3.5-5.1 [facility] Comment on above: Performed By: #### H GBHCT #### [facility] [address] [address] [address] Kayley Hatfield Protein [Mass/Vol] 6.7 g/dL Normal 6.4-8.2 [facility] Comment on above: Performed By: #### H GBHCT #### [facility] [address] [address] [address] Kayley Hatfield Sodium [Moles/Vol] 136 mmol/L Normal 136-145 [facility] Comment on above: Performed By: #### H GBHCT #### [facility] [address] [address] [address] Kayley Hatfield Urea nitrogen [Mass/Vol] 17.0 mg/dL Normal 7.0-18.0 [facility] Comment on above: Performed By: #### H GBHCT #### [facility] [address], [place] [address] Dr. Kayley Hatfield Urea nitrogen/Creatinine [Mass ratio] 19.1 mg/mg Normal [facility] Comment on above: Performed By: #### H GBHCT #### [facility] [address], [place] [address] Dr. Kayley Hatfield TROPONIN, HIGH SENSITIVITYon 03-06-2022 HSTROP 7.0 pg/mL Normal 4.0-51.3 [facility] Comment on above: Result Comment: CUT- OFF POINTS HAVE BEEN ESTABLISHED BASED ON THE FOURTH UNIVERSAL DEFINITIONS OF MYOCARDIAL INFARCTION. THE UPPER REFERENCE LIMIT (URL) OF TROPONIN, DEFINED THE 99TH PERCENTILE OF cTnI DISTRIBUTION IN A REFERENCE POPULATION, HAS BEEN CONFIRMED THE DECISION THRESHOLD FOR AR DIAGNOSIS. Performed By: #### H GBHCT #### [facility] [address] [address] [address] Kayley Hatfield TYPE AND SCREENon 03-06-2022 TYPE AND SCREEN Negative Normal [facility] Comment on above: Performed By: #### C VDTBH #### [facility] [address] [place], [place] [address] Dr. Kayley Hatfield XR CHEST 1 Von [...] Date: 2022-03-06 16:10 Normal [facility] XR CHEST 1 V EXAMINATION: XR [...] Date: 2022-03-06 14:39 Normal [facility] XR DEXA BONE DENSITYon 12-22 XR [...] Date: 2021-12-22 17:05 Normal [facility] CARDIAC ABDIAZIZ ADMITon 022 CK [Catalytic activity/Vol] 21 U/L Critically low 26-192 [facility] Comment on above: Performed By: #### B [id number] #### [facility] [address] [address] [address] Kayley Hatfield CK.MB [Mass/Vol] 1.00 ng/mL Normal <=3.60 [facility] Comment on above: Performed By: #### B [id number] #### [facility] [address], [place] [address] Dr. Kayley Hatfield HSTROP 11.6 pg/mL Normal 4.0-51.3 [facility] Comment on above: Result Comment: CUT- OFF POINTS HAVE BEEN ESTABLISHED BASED ON THE FOURTH UNIVERSAL DEFINITIONS OF MYOCARDIAL INFARCTION. THE UPPER REFERENCE LIMIT (URL) OF TROPONIN, DEFINED THE 99TH PERCENTILE OF cTnI DISTRIBUTION IN A REFERENCE POPULATION, HAS BEEN CONFIRMED THE DECISION THRESHOLD FOR AR DIAGNOSIS. Performed By: #### B [id number] #### [facility] [address] [address] [address] Kayley Hatfield ROD 48 ng/mL Normal 9-82 [facility] Comment on above: Performed By: #### B [id number] #### [facility] [address] [address] [address] Kayley Hatfield CBC AUTO DIFFon 12-14-2021 BASO # 0.1 103/ul Normal 0.0-0.1 [facility] Comment on above: Performed By: #### P RBC #### [facility] [address] [place] [address] Dr. Kayley Hatfield Basophils/100 WBC (Bld) 0.9 % Normal 0.2-2.0 [facility] Comment on above: Performed By: #### P RBC #### [facility] [address] [place] [address] Dr. Kayley Hatfield EO # 0.1 103/ul Normal 0.0-0.7 [facility] Comment on above: Performed By: #### P RBC #### [facility] [address] [address] [address] Kayley Hatfield Eosinophils/100 WBC (Bld) 0.5 % Critically low 0.9-7.0 [facility] Comment on above: Performed By: #### P RBC #### [facility] [address] [place] [address] Dr. Kayley Hatfield Erythrocyte distribution width (RBC) [Ratio] 15.4 % Critically high 11.0-15.0 [facility] Comment on above: Performed By: #### P RBC #### [facility] [address] [place] [address] Dr. Kayley Hatfield Hematocrit (Bld) [Volume fraction] 29.3 % Critically low 36.0-48.0 [facility] Comment on above: Performed By: #### P RBC #### [facility] [address] [address] [address] Kayley Hatfield Hemoglobin (Bld) [Mass/Vol] 8.3 g/dL Critically low 12.0-16.0 [facility] Comment on above: Performed By: #### P RBC #### [facility] [address] [address] [address] Kayley Hatfield IG # 0.05 10e3/ul Critically high 0.00-0.03 [facility] Comment on above: Performed By: #### P RBC #### [facility] [address] [address] [address] Kayley Hatfield IG % 0.4 % Normal 0.0-0.5 [facility] Comment on above: Performed By: #### P RBC #### [facility] [address] [place] [address] Dr. Kayley Hatfield LYMPH # 1.2 103/ul Normal 1.2-3.8 [facility] Comment on above: Performed By: #### P RBC #### [facility] [address] [place] [address] Dr. Kayley Hatfield Lymphocytes/100 WBC (Bld) 10.6 % Critically low 20.5-60.0 [facility] Comment on above: Performed By: #### P RBC #### [facility] [address] [place] [address] Dr. Kayley Hatfield MANUAL DIFF REQ NO Normal [facility] Comment on above: Performed By: #### P RBC #### [facility] [address] [address] [address] Kayley Hatfield MCH (RBC) [Entitic mass] 21.4 pg Critically low 26.7-34.0 [facility] Comment on above: Performed By: #### P RBC #### [facility] [address] [address] [address] Kayley Hatfield MCHC (RBC) [Mass/Vol] 28.3 g/dL Critically low 29.9-35.2 [facility] Comment on above: Performed By: #### P RBC #### [facility] [address] [address] [address] Kayley Hatfield MCV (RBC) [Entitic vol] 75.5 fL Critically low 81.0-99.0 [facility] Comment on above: Performed By: #### P RBC #### [facility] [address] [place] [address] Dr. Kayley Hatfield MONO # 0.9 103/ul Critically high 0.3-0.8 [facility] [place] Comment on above: Performed By: #### P RBC #### [facility] [address] [place] [address] Dr. Kayley Hatfield Monocytes/100 WBC (Bld) 7.6 % Normal 1.7-12.0 [facility] Comment on above: Performed By: #### P RBC #### [facility] [address] [place] [address] Dr. Kayley Hatfield NEUT # 9.2 103/ul Critically high 1.4-6.5 [facility] [place] Comment on above: Performed By: #### P RBC #### [facility] [address] [place] [address] Dr. Kayley Hatfield Neutrophils/100 WBC (Bld) 80.0 % Critically high 43.0-75.0 [facility] Comment on above: Performed By: #### P RBC #### [facility] [address] [place] [address] Dr. Kayley Hatfield Platelet mean volume (Bld) [Entitic vol] 9.3 fL Critically low 9.5-13.5 [facility] Comment on above: Performed By: #### P RBC #### [facility] [address] [place] [address] Dr. Kayley Hatfield PLT 498 103/ul Critically high 150-450 [facility] [place] Comment on above: Performed By: #### P RBC #### [facility] [address] [place] [address] Dr. Kayley Hatfield RBC 3.88 106/ul Critically low 4.20-5.40 [facility] [place] Comment on above: Performed By: #### P RBC #### [facility] [address] [place] [address] Dr. Kayley Hatfield WBC 11.5 103/ul Critically high 4.0-11.0 [facility] Comment on above: Performed By: #### P RBC #### [facility] [address] [place] [address] Dr. Kayley DOBSON URINE PROFILEon 2 Bilirubin Ql (U) Negative Normal NEGATIVE [facility] Comment on above: Performed By: #### H GBHCT #### [facility] [address] [place] [address] Dr. Kayley Hatfield Clarity (U) CLEAR Normal CLEAR [facility] Comment on above: Performed By: #### H GBHCT #### [facility] [address] [place] [address] Dr. Kayley Hatfield Color (U) LT. YELLOW Normal YELLOW [facility] Comment on above: Performed By: #### H GBHCT #### [facility] [address] [place] [address] Dr. Kayley Hatfield ERUAHD A micrscopic examination will be performed if indicated. Normal [facility] Comment on above: Performed By: #### H GBHCT #### [facility] [address] [place] [address] Dr. Kayley Hatfield Glucose Ql (U) Negative Normal NEGATIVE [facility] Comment on above: Performed By: #### H GBHCT #### [facility] [address] [place] [address] Dr. Kayley Hatfield Hemoglobin Ql (U) TRACE-INTACT Abnormal NEGATIVE [facility] Comment on above: Performed By: #### H GBHCT #### [facility] [address] [place] [address] Dr. Kayley Hatfield Ketones Ql (U) Negative Normal NEGATIVE [facility] Comment on above: Performed By: #### H GBHCT #### [facility] [address] [place] [address] Dr. Kayley Hatfield LEUKOCYTES Negative Normal NEGATIVE [facility] Comment on above: Performed By: #### H GBHCT #### [facility] [address] [place], [place] [id number] Dr. Kayley Hatfield Nitrite Ql (U) Negative Normal NEGATIVE [facility] Comment on above: Performed By: #### H GBHCT #### [facility] [address] [place] [address] Dr. Kayley Hatfield pH (U) 6.5 [pH] Normal 5-9 [facility] Comment on above: Performed By: #### H GBHCT #### [facility] [address] [place] [address] Dr. Kayley Hatfield SPEC GRAVITY 1.015 Normal 1.005-<=1.025 [facility] Comment on above: Performed By: #### H GBHCT #### [facility] [address] [place] [address] Dr. Kayley Hatfield UA PROTEIN Negative Normal NEGATIVE/ TRACE [facility] Comment on above: Performed By: #### H GBHCT #### [facility] [address] [place] [address] Dr. Kayley Hatfield UR MICRO IND INDICATED Normal [facility] Comment on above: Performed By: #### H GBHCT #### [facility] [address] [place] [address] Dr. Kayley Hatfield Urobilinogen Qn (U) 0.2 {Lu'U}/dL Normal 0.2 - 1. 0 [facility] Comment on above: Performed By: #### H GBHCT #### [facility] [address] [place] [address] Dr. Kayley Hatfield PROF 14(COMP METB)on 022 Albumin [Mass/Vol] 3.2 g/dL Critically low 3.4-5.0 [facility] Comment on above: Performed By: #### B [id number] #### [facility] [address] [place] [address] Dr. Kayley Hatfield Albumin/Globulin [Mass ratio] 0.8 {ratio} Normal [facility] Comment on above: Performed By: #### B [id number] #### [facility] [address] [place] [address] Dr. Kayley Hatfield ALP [Catalytic activity/Vol] 72 U/L Normal 46-116 [facility] Comment on above: Performed By: #### B [id number] #### [facility] [address] [place] [address] Dr. Kayley Hatfield ALT [Catalytic activity/Vol] 24 U/L Normal 14-59 [facility] Comment on above: Performed By: #### B [id number] #### [facility] [address] [place] [address] Dr. Kayley Hatfield Anion gap [Moles/Vol] 13.0 mmol/L Normal Th [facility] Comment on above: Performed By: #### B [id number] #### [facility] [address] [place] [address] Dr. Kayley Hatfield AST [Catalytic activity/Vol] 18 U/L Normal 15-37 [facility] Comment on above: Performed By: #### B [id number] #### [facility] [address] [place] [address] Dr. Kayley Hatfield Bilirubin [Mass/Vol] 0.3 mg/dL Normal 0.2-1.0 [facility] Comment on above: Performed By: #### B [id number] #### [facility] [address] [place] [address] Dr. Kayley Hatfield Calcium [Mass/Vol] 9.9 mg/dL Normal 8.5-10.1 [facility] Comment on above: Performed By: #### B [id number] #### [facility] [address] [place] [address] Dr. Kayley Hatfield Chloride [Moles/Vol] 98 mmol/L Normal 98-107 [facility] Comment on above: Performed By: #### B [id number] #### [facility] [address] [place] [address] Dr. Kayley Hatfield CO2 [Moles/Vol] 29.8 mmol/L Normal 21.0-32.0 [facility] Comment on above: Performed By: #### B [id number] #### [facility] [address] [place] [address] Dr. Kayley Hatfield Creatinine [Mass/Vol] 1.23 mg/dL Critically high 0.55-1.02 [facility] Comment on above: Performed By: #### B [id number] #### [facility] [address] [address] [address] Kayley Hatfield EGFR-AF NEW ZEALANDER 53 mL/min/1.73m2 Critically low >=60 [facility] Comment on above: Performed By: #### B [id number] #### [facility] [address] [address] [address] Kayley Hatfield EGFR-NON AF NEW ZEALANDER 44 mL/min/1.73m2 Critically low >=60 [facility] Comment on above: Performed By: #### B [id number] #### [facility] [address] [place] [address] Dr. Kayley Hatfield Globulin (S) [Mass/Vol] 3.9 g/dL Normal [facility] Comment on above: Performed By: #### B [id number] #### [facility] [address] [place] [address] Dr. Kayley Hatfield Glucose [Mass/Vol] 160 mg/dL Critically high 74-106 [facility] Comment on above: Performed By: #### B [id number] #### [facility] [address] [place] [address] Dr. Kayley Hatfield Potassium [Moles/Vol] 3.8 mmol/L Normal 3.5-5.1 [facility] Comment on above: Performed By: #### B [id number] #### [facility] [address] [place] [address] Dr. Kayley Hatfield Protein [Mass/Vol] 7.1 g/dL Normal 6.4-8.2 [facility] Comment on above: Performed By: #### B [id number] #### [facility] [address] [place] [address] Dr. Kayley Hatfield Sodium [Moles/Vol] 137 mmol/L Normal 136-145 [facility] Comment on above: Performed By: #### B [id number] #### [facility] [address] [place] [address] Dr. Kayley Hatfield Urea nitrogen [Mass/Vol] 20.0 mg/dL Critically high 7.0-18.0 [facility] Comment on above: Performed By: #### B LDCX1 #### [facility] [address] [place] [address] Dr. Kayley Hatfield Urea nitrogen/Creatinine [Mass ratio] 16.3 mg/mg Normal [facility] Comment on above: Performed By: #### B LDCX1 #### [facility] [address] [place] [address] Dr. Kayley Hatfield TROPONIN, HIGH SENSITIVITYon 12-14-2021 HSTROP 11.3 pg/mL Normal 4.0-51.3 [facility] Comment on above: Result Comment: CUT- OFF POINTS HAVE BEEN ESTABLISHED BASED ON THE FOURTH UNIVERSAL DEFINITIONS OF MYOCARDIAL INFARCTION. THE UPPER REFERENCE LIMIT (URL) OF TROPONIN, DEFINED THE 99TH PERCENTILE OF cTnI DISTRIBUTION IN A REFERENCE POPULATION, HAS BEEN CONFIRMED THE DECISION THRESHOLD FOR AR DIAGNOSIS. Performed By: #### P RTELEC #### [facility] [address] [place] [address] Dr. Kayley Hatfield URINE MICROSCOPIC ONLYon BACTERIA NONE SEEN Normal NONE SEEN [facility] Comment on above: Performed By: #### H GBHCT #### [facility] [address] [place] [address] Dr. Kayley Hatfield Bacteria identified Cx Nom (U) NOT INDICATED Normal [facility] Comment on above: Performed By: #### H GBHCT #### [facility] [address] [place] [address] Dr. Kayley Hatfield CAST SEEN Abnormal NONE SEEN [facility] Comment on above: Performed By: #### H GBHCT #### [facility] [address] [place] [address] Dr. Kayley Hatfield Crystals LM Nom (Urine sed) NONE SEEN Normal NONE SEEN [facility] Comment on above: Performed By: #### H GBHCT #### [facility] [address] [place] [address] Dr. Kayley Hatfield Epithelial cells LM Ql (Urine sed) FEW Abnormal NONE SEEN /RARE [facility] Comment on above: Performed By: #### H GBHCT #### [facility] [address] [address] [address] Kayley Hatfield HYALINE CAST RARE Normal [facility] Comment on above: Performed By: #### H GBHCT #### [facility] [address] [address] [address] Kayley Hatfield MUCOUS NONE SEEN Normal NONE SEEN [facility] Comment on above: Performed By: #### H GBHCT #### [facility] [address] [address] [address] Kayley Hatfield RBC 0-2 Normal 0-2 [facility] Comment on above: Performed By: #### H GBHCT #### [facility] [address] [address] [address] Kayley Hatfield WBC 0-2 Abnormal NONE SEEN [facility] Comment on above: Performed By: #### H GBHCT #### [facility] [address] [place] [address] Dr. Kayley Hatfield XR CHEST 1 Von [...] Date: 2021-12-14 13:43 Normal [facility] BUNon 12-12-2021 Urea nitrogen [Mass/Vol] 15.0 mg/dL Normal 7.0-18.0 [facility] Comment on above: Performed By: #### P RBC #### [facility] [address] [place] [address] Dr. Kayley Hatfield CALCIUMon 12-12-2021 Calcium [Mass/Vol] 9.1 mg/dL Normal 8.5-10.1 [facility] Comment on above: Performed By: #### C VDTBH #### [facility] [address] [place] [address] Dr. Kayley Hatfield CREATININEon 12-12-2021 Creatinine [Mass/Vol] 1.05 mg/dL Critically high 0.55-1.02 [facility] Comment on above: Performed By: #### P RBC #### [facility] [address] [place] [address] Dr. Kayley Hatfield EGFR-AF NEW ZEALANDER >60 Normal >=60 [facility] Comment on above: Performed By: #### P RBC #### [facility] [address] [place] [address] Dr. Kayley Hatfield EGFR-NON AF NEW ZEALANDER 53 mL/min/1.73m2 Critically low >=60 [facility] Comment on above: Performed By: #### P RBC #### [facility] [address] [place] [address] Dr. Kayley Hatfield CRPon 12-12-2021 CRP [Mass/Vol] mg/L Normal <=1.0 [facility] Comment on above: Performed By: #### P RBC #### [facility] [address] [place] [address] Dr. Kayley Hatfield MAGNESIUMon 12-12-2021 Magnesium [Mass/Vol] 1.9 mg/dL Normal 1.8-2.4 [facility] Comment on above: Performed By: #### C VDTBH #### [facility] [address] [place] [address] Dr. Kayley Hatfield PHOSPHORUSon 12-12-2021 Phosphate [Mass/Vol] 4.1 mg/dL Normal 2.6-4.7 [facility] Comment on above: Performed By: #### C VDTBH #### [facility] [address] [place] [address] Dr. Kayley Hatfield SED RATE WESTERGRENon 2021 SED RATE 35 mm/hr Critically high <=30 [facility] Comment on above: Performed By: #### P RTELEC #### [facility] [address] [address] [address] Kayley Hatfield Vital Signs Date Time Vital Sign Value Performing Clinician Clarisse marin 06-26-2023 15:27-0500 Diastolic blood pressure 103 mm[Hg] MD Erasto Burroughs Work Phone: [facility] 06-26-2023 15:27-0500 Heart rate 81 /min MD Erasto Burroughs Work Phone: [facility] 06-26-2023 15:27-0500 Respiratory rate 18 /min MD Erasto Burroughs Work Phone: [facility] 06-26-2023 15:27-0500 SaO2% (BldA) [Mass fraction] 95 % MD Erasto Burroughs Work Phone: [facility] 06-26-2023 15:27-0500 Systolic blood pressure 162 mm[Hg] MD Erasto Burroughs Work Phone: [facility] 06-26-2023 13:44-0500 Body height 162.56 cm MD Erasto Burroughs Work Phone: [facility] 06-26-2023 13:44-0500 Body weight 59.87 kg MD Erasto Burroughs Work Phone: [facility] 06-26-2023 13:44-0500 Inhaled oxygen flow rate 2 L/min MD Erasto Burroughs Work Phone: [facility] Encounters Encounter Date Encounter Type Care Provider Facility Start: 05-12-2024 ambulatory Ihsan BROWN Facili ty:[facility] Start: 01-07-2024 End: 01-07-2024 ambulatory [facility] Start: 11-09-2023 End: 11-10-2023 ambulatory Ihsan BROWN Facility:[facility] Start: 08-18-2023 Refill Erasto Leggett Work Phone: [facility] Comment on above: DDD (degenerative di sc disease), lumbar (Primary Dx) Start: [facility]: 06-26-2023 End: 06-26-2023 ambulatory Remy J Dijace Facility:[facility] Start: 06-26-2023 End: 06-26-2023 Admission to same day surgery center MD Erasto Burroughs Work Phone: [facility] Work Phone: Start: 06-26-2023 End: 06-26-2023 ambulatory MD Erasto Burroughs Work Phone: [facility] Work Phone: Start: 06-14-2023 End: 06-14-2023 ambulatory SHAIKH HUMA Not Available Start: 06-05-2023 [facility]: 06-05-2023 Evaluation and management of inpatient NOJENSEN BEACHKRISTAN [facility] Start: 06-05-2023 Evaluation and management of inpatient NOJENSEN BEACHDIN [facility] Start: 06-04-2023 End: 06-06-2023 Evaluation and management of inpatient AVINASH SERRANO [facility] Start: 05-15-2023 ambulatory Iman Jeter Facility:[facility] Start: 04-16-2023 End: 04-17-2023 ambulatory Ihsan BROWN Facility:[facility] Start: 10-31-2022 End: 11-01-[address] ERASTO BURROUGHS Facility:[facility] Start: 10-10-2022 End: 10-11-[address] ERASTO BURROUGHS Facility:[facility] Start: 05-01-2022 End: 05-02-[address] ERASTO BURROUGHS Facility:[facility] Start: 05-01-[address] ERASTO BURROUGHS [facility] ity:[facility] Start: 04-25-2022 End: 04-26-[address] ERASTO BURROUGHS Facility:[facility] Start: 04-04-2022 Encounter for genera l adult medical examination without abnormal findings DR ERASTO BURROUGHS [facility] Start: 03-30-[address] ERASTO BURROUGHS [facility] ity:[facility] Start: 03-29-2022 Encounter for genera l adult medical examination without abnormal findings DR ERASTO BURROUGHS [facility] Start: 03-28-2022 End: 03-30-2022 Evaluation and management of inpatient DR ERASTO BURROUGHS Facility:[facility] Start: 03-28-2022 End: 03-29-[address] ERASTO BURROUGHS Facility:[facility] Start: 03-28-2022 End: 03-29-2022 Encounter for general adult medical examination without abnormal findings DR ERASTO BURROUGHS Facility:[facility] Start: 03-08-2022 End: 03-15-2022 Evaluation and management of inpatient VALERIO ALI Facility:[facility] Start: 03-06-2022 End: 03-08-2022 Evaluation [...] 09-05-2023 Hemoglobin A1c measurement Diabetes: Hemoglobin A1C [facility] Start: 08-27-2023 End: 08-27-2023 Patient encounter procedure 08/27/2023 2:30 PM EST Office Visit [facility] [address] [place] [address] Erasto Burroughs MD [address] [place] [id number] [facility] Start: 06-26-2023 [facility] Start: 03-09-2023 Influenza vaccination Influenza Vacc ine (#1) [facility] Start: 1997 Screening for malign ant neoplasm of breast Mammogram [facility] Start: 1976 Urine screening for protein Diabetes: Urine Protein Screening [facility] Start: 1967 Glaucoma screening Diabetes: R etinopathy Screening [facility] Start: 1957 Screening for malign ant neoplasm of colon [facility] Patient Education Esophageal Dilation [facility] Work Phone: Payers Date Payer Category Payer Medicare [id number] 2023 Self-pay [id number] 2022 Unknown [employer] [id number] 2022-Present [phone] [address] [address] [place] [address] [id number] 2013 Medicare MEDICARE MEDICAR E PART B [id number] 2013-Present [address] [address] [place] [address] Medicare [id number] 1959 Medicare [id number] 1959 Unknown [id number] 1959 Unknown [id number] 1957 Unknown [id number] .[id number] 7 1957 Unknown [id number] 2.16.840.1.915533.3.579.2.59 3 1957 Unknown [id number] 2.16.840.1.663061.3.579.2.59 3 1957 Unknown [id number] 2.16.840.1.294442.3.579.2.59 3 1957 Unknown [id number] 2.16.840.1.976165.3.579.2.59 3 1957 Unknown [id number] 2.16.840.1.893630.3.579.2.59 3 1957 Unknown [id number] 2.16.840.1.404901.3.579.2.59 3 1957 Unknown [id number] 2.16.840.1.653603.3.579.2.59 3 1957 Unknown [id number] 2.16.840.1.946526.3.579.2.59 3 1957 Unknown [id number] 2.16.840.1.033322.3.579.2.59 3 1957 Unknown [id number] 2.16.840.1.661217.3.579.2.59 3 1957 Unknown [id number] 2.16.840.1.792501.3.579.2.59 3 1957 Unknown [id number] 2.16.840.1.206335.3.579.2.59 3 1957 Unknown [id number] 2.16.840.1.091573.3.579.2.59 3 1957 Unknown [id number] 2.16.840.1.650253.3.579.2.12 59 1957 Unknown [id number] 2.16.840.1.752575.3.579.2.72 7 1957 Unknown [id number] 2.16.840.1.539607.3.579.2.72 7 1957 Unknown [id number] 2.16.840.1.090856.3.579.2.72 7 1957 Unknown [id number] 2.16.840.1.694920.3.579.2.72 7 Unknown [id number] 2.16.840.1.475929.3.579.2.53 1 Social History Date Type Detail Facility Start: 06-14-2023 End: 06-26-2023 Tobacco smoking status NHIS Ex-smoker (finding) [facility] Start: 1955 Sex Assigned At Female [facility] End: 03-06-2022 History of tobacco use Current smoker [facility] End: 03-06-2022 History of tobacco use Cigarette Smoker [facility] Start: 06-14-2023 Cigarettes smoked current (pack per day) - Reported 2 [facility] Start: 06-14-2023 Tobacco use and exposure Smokeless tobacco non-user [facility] Start: 06-14-2023 Alcohol intake Ex-drinker (finding) [facility] Start: 06-14-2023 Tobacco use panel [facility] Start: 06-14-2023 Alcohol Comment caffine-2 cups daily [facility] Start: 1955 Sex Assigned At Not on file [facility] Goals Date Patient Goal Desired Activity /State Clinical Notes 03-09-2022 to 01-07-2024 Note Date & Type Note Facility 01-07-2024 Note [facility] Subjective Lise Easton Covert is a 68 y.o. year old female patient being seen for 6 mo follow up CAD and hypertension. She was admitted to [facility] 2 weeks ago for severe sepsis and pneumonia. Denies chest pain. Says she's been getting dizzy when she stands up. Patient Active Problem List Diagnosis Abdominal pain [...] Type 2 diabetes mellitus without complication (CMS/HCC) Bilateral leg edema Bullous emphysema (CMS/HCC) Chronic depressive disorder Collagenous colitis Coronary artery disease, occlusive Dysuria Paresthesia Thoracic outlet syndrome Vitamin D deficiency Family History Problem Relation Name Age of Onset Stroke Father Stroke Father's Sister Coronary artery disease Paternal Grandmother Social History Tobacco Use Smoking status: Former Types: Cigarettes Quit date: 03/06/2022 Years since quittin.8 Smokeless tobacco: Never Substance Use Topics Alcohol use: Not Currently HPI Lise is seen in follow-up. She is a 68 yo woman who [...] Prior additional history: She was admitted to [facility] in 10/2017 with sudden onset symptoms [...] smoking. On 06/04/2023 she was admitted to [facility] transferred from the [facility] due to pneumonia. In that setting she was found to have minimally elevated troponin. Her echocardiogram and EKG were nonrevealing. She was discharged on medical therapy. In December 2023 she was admitted to the [facility] with pneumonia and sepsis. In that setting she had significantly elevated NT proBNP levels. She also had hypokalemia. She was discharged on potassium. Today she reports that she is still recovering from the hospitalization. She feels weak. She also feels dizzy when she stands up. No syncope. No chest pain. Her shortness of breath is at baseline. She continues to be on oxygen therapy. No leg edema. Review of Systems Cardiovascular: Positive for dyspnea on exertion. Respiratory: Positive for cough and shortness of breath. Musculoskeletal: Positive for back pain and muscle weakness. Neurological: Positive for dizziness, light-headedness, tremors and weakness. All other systems reviewed and are negative. Objective Visit Vitals BP 102/58 (BP Location: Left arm, Patient Position: Standing) Pulse 72 Ht 1.626 m (5' 4 ) Wt 49.4 kg (109 lb) LMP (LMP Unknown) SpO2 94% BMI 18.71 kg/m??? OB Status Postmenopausal Smoking Status Former BSA 1.49 m??? Physical Exam Constitutional: Appearance: She is [...] effort is normal. No respiratory distress. Breath (more content not included)... [facility] 06-27-2023 Note [place] [facility] Subjective Lise Easton Covert is a 68 y.o. year old female patient being seen for follow up [facility] for NSTEMI. Denies chest pain, [...] with polymyalgia rheumatica (CMS/HCC) Headache Psoriatic arthropathy ([facility]) Raynaud's disease Status post percutaneous transluminal coronary angioplasty Other pneumothorax Recurrent spontaneous pneumothorax Acute on chronic respiratory failure with hypoxia ([facility]) Anemia, unspecified Community acquired pneumonia of right lower lobe of lung Age-related osteoporosis with current pathological fracture, vertebra(e), initial encounter for fracture ([facility]) 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 On 06/04/2023 she was admitted to [facility] transferred from the [facility] due to pneumonia. In that setting [...] Judgment normal. All (more content not included)... [facility] 06-26-2023 Procedure note [facility] 06-06-2023 Note Hospital Medicine Discharge Summary Final Discharge Diagnosis: Community acquired pneumonia of right lower lobe of lung Admission Diagnosis: NSTEMI (non-ST elevated myocardial infarction) (CMS/HCC) [I21.4] Hospital course: 68 years old female lady with a medical history of hypertension, hyperlipidemia, gastroesophageal reflux disease, carotid disease, fibromyalgia, arthritis, polymyalgia rheumatica, COPD, temporal arteritis, and psoriasis. Came into the [facility] ER as a transfer from [facility] for concern of chest pain and [...] # NIDDM, on oral agents. Dear Dr. Carl MD, Lise is advised to follow up with you within 1-2 weeks. Follow-up with: None Scheduled appointments: Future Appointments Date Time Provider Department Center 06/27/2023 3:45 PM Jer Neff MD [facility] Your medication list START taking these [...] by mouth at bedtime. cholecalciferol 50 MCG (1999) tablet Commonly known as: Vitamin D-[address] capsule Commonly known as: Cymbalta eszopiclone 3 mg tablet Commonly known as: Lunesta fluticasone furoate-vilanteroL 200-25 mcg/dose inhaler Commonly known as: Breo Ellipta Inhale 1 puff in the morning. glipiZIDE 5 mg tablet Commonly known as: Glucotrol HYDROcodone-acetaminophen 5-325 mg tablet Commonly known as: Merrimack melatonin 5 mg tablet metoprolol tartrate 25 [...] Your Medications These medications were sent to [id number] - [address] [address] cefdinir 300 mg capsule doxycycline 100 mg capsule Lise is allergic to azithromycin and latex. [place]position[place] [facility] [place] Condition: Stable Code Status: Prior Diagnostic [...] rhythm. Lungs: C (more content not included)... [facility] 06-06-2023 Note 06/06/23 1019 Referral Data Referral Source homeworker Activities of Daily Living Communication Talks;Understands speaking Discharge Planning Support Systems Spouse/significant other Patient's goal for discharge home Screened by [facility]; no social work needs at this time [facility] 06-05-2023 Note 06/05/23 1505 Admission Assessment [...] Discharge? Yes Does the patient have a field nurse case manager assigned to them through their insurance? Yes [...] link and activate MyChart? MyChart already active [facility] 06-05-2023 Note . Hospital Medicine History and Physical 06/05/2023 1:22 AM THE HOSPITALIST TEAM PREFERS TO USE [employer] FOR COMMUNICATION 7AM-7PM. IF I DO NOT RESPOND WITHIN 15 MINUTES, PLEASE PAGE ME/CALL THROUGH THE REFRIGERATING ENGINEER HEAD. FROM 7PM-7AM, PLEASE PAGE [phone](COVR) Chief Complaint No chief complaint on file. History of Present Illness Lise Canales is an 68 y.o. female who came from home with NSTEMi. This is a 68 years old female lady with a medical history of hypertension, hyperlipidemia, gastroesophageal reflux disease, carotid disease, fibromyalgia, arthritis, polymyalgia rheumatica, COPD, temporal arteritis, and psoriasis. Came into the [facility] ER as a transfer from [facility] for concern of chest pain and [...] Date Noted NSTEMI (non-ST elevated myocardial infarction) ([facility]) 06/05/2023 Acute on chronic respiratory failure with hypoxia [place] 04/01/2022 Anemia, unspecified 04/01/2022 Recurrent spontaneous pneumothorax 03/30/2022 Giant cell arteritis with polymyalgia rheumatica ([facility] 10/11/2021 Pneumothorax on left 08/02/2016 Coronary atherosclerosis 06/15/2014 Dyslipidemia 06/15/2014 Status post percutaneous transluminal coronary angioplasty 06/15/2014 Angina pectoris ([facility]) 05/04/2014 Electrocardiogram abnormal 05/04/2014 Abdominal pain 04/24/2014 Altered mental status 04/24/2014 Benign essential hypertension 04/24/2014 Congestive heart failure ([facility]) 04/24/2014 Dyspnea 04/24/2014 Gastroesophageal reflux disease 04/24/2014 History of psychiatric disorder 04/24/2014 Hyperlipidemia 04/24/2014 Headache 04/24/2014 Raynaud's disease 04/24/2014 Other and unspecified noninfectious gastroenteritis and colitis(558.9) 05/15/2007 Candidiasis of mouth 04/17/2007 COPD (chronic obstructive pulmonary disease) ([facility]) 04/17/2007 Diarrhea 04/17/2007 Loss of weight 04/17/2007 Other psoriasis 04/17/2007 Psoriatic arthropathy ([facility]) 04/17/2007 Other pneumothorax 03/30/2022 Assessment and Plan [...] over 92 -Scheduled (more content not included)... [facility] 03-15-2022 Note MR#: [id number] [facility] Pt. Name: Lies Canales Admitted: 03/08/2022 Discharged: 03/15/2022 Date of [...] female, who presented to the [facility] with shortness of breath and fatigue, [...] The patient was subsequently transferred to for [facility] for further workup, was admitted [...] Penn MD Date Trans: 03/15/2022 04:48 P/mmo [id number] cc: Erasto Burroughs M.D. [address] [place] [address] [facility] 03-13-2022 Note MR#: [id number] [facility] Pt. Name: Lise Canales Admitted: 03/08/2022 [...] Pineda MD Date Trans: 03/13/2022 10:30 A/gabriela [id number] cc: Erasto Burroughs M.D. [address] [place] [address] [facility] 03-09-2022 Note MR#: [id number] [facility] Pt. Name: Lise Canales Admitted: 03/05/2020 Discharged: [...] gastritis, Helicobacter pylori infection, who presented to [facility] Emergency Department complaining of sudden [...] appointment with the primary care provider through [facility] for close followup for her [...] 2 to 4 weeks. Follow up at [facility] on 03/16/2022 at 9:50 a.m. [...] from me. Date Dict: 03/08/2022/03:04 P/Paulette Mccord [facility] Date Trans: 03/09/2022 11:21 A/gabriela [id number] cc: Marti Poole M.D. [address] [place] [phone] Erasto Burroughs M.D. [address] [facility] [address] [facility] Evaluation note No assessment inform ation available [facility] Work Phone: Evaluation note Diagnosis DDD (degenerative disc disease), lumbar- Primary Degeneration of lumbar or lumbosacral intervertebral disc documented in this encounter [facility] Author Remy Givens [facility] June 26, 2023 2:44pm Note Date/Time June 26, 2023 2:44pm [facility] [address] [place] [id number] Gastroenterology H&P Signed Patient: Lise Canales MR#: [id number] : 1955 Acct:[id number] Age/Sex: 68 / F Adm Date: 3 Loc: Room: Type: [facility] Attending Dr: Remy Givens MD Copies to: [...] <Electronically signed by Remy Givens MD> 06/26/23 1444 [facility] Work Phone: Hospital Discharge instructions Additional [...] problems. -Follow up with PCP. -Office number [phone].[facility] Work Phone: Summary Purpose Family History No [...] and content) DATE CREATED AUTHOR 04/11/2022 [facility] DATE CREATED AUTHOR AUTHORLinus TENORIO 11/04/2022 [facility] DATE CREATED AUTHOR AUTHOR'S ORGANIZ ATION 06/17/2023 [facility] EPIC DATE CREATED AUTHOR AUTHOR'S ORGANIZ ATION 07/10/2023 [facility] DATE CREATED AUTHOR AUTHOR'S ORGANIZ ATION 11/13/2023 [facility] DATE CREATED AUTHOR AUTHOR'S ORGANIZ ATION 01/08/2024 [facility] Care Teams (unrecognized sec tion and content) Team Status: Active Member Role Status Dates Erasto Burroughs MD Primary Care Provider Active Team Status: Inactive Member Role Status Dates Erasto Burroughs MD Primary Care Provider Active Remy Givens MD Attending Provider Active Chemist Steroids Relationship Specialty Start Date End Date Erasto [...] BE BASED ON THE PRIMARY CLINICAL RECORDS. [facility]. provides no warranty or guarantee of the accuracy or completeness of information in this document.
== END 2024-01-31 15:14 | disposition home or self-care (01) ==
LOC: LAB 15:13
PROVIDERS: PCP Family Medicine; Visit Provider Registered Nurse
DX: E55.9 Vitamin D deficiency, unspecified (principal)
CPT/HCPCS: 36415; 82306

== ENCOUNTER 2024-02-12 12:48 | Outpatient (OUT) | payer OTHER, MEDICARE, SELFPAY ==
--- NOTE | 2024-02-12 13:10 | XR_ITS ---
[address] [address] Patient Name: SANDRA DUFFT MRN: [id number] date: 1955 Sex: F Assigned Patient Location: [facility] Current Patient Location: [facility] Accession/Order Number: [id number] Exam Date: 02/12/2024 13:00 Report Date: 02/12/2024 15:15 At the request of: ADELINA BOOTH Procedure: XR DEXA axial skeleton EXAMINATION: XR DEXA axial skeleton HISTORY: Age-related osteoporosis COMPARISON: DEXA bone densitometry 12/22/2021 TECHNIQUE: Dual-energy X-ray absorptiometry (DXA) was performed. FINDINGS: SPINE ANALYSIS: Average bone mineral density is 0.838 g/cm2. T-score (standard deviation relative to young adult mean): -2.8 . +1.2% change since prior study. HIP ANALYSIS: Lowest bone mineral density is within the left femoral neck, 0.678 g/cm2. T-score (standard deviation relative to young adult mean): -2.6 . -1.7% change since prior study. XR/XR DEXA axial skeleton IMPRESSION: World Health Organization Classification: Osteoporosis - High Fracture Risk FRAX: Cannot calculate. Pharmacologic treatment recommendations * No uniform recommendation applies to all patients. Management plans must be individualized. * Consider initiating pharmacologic treatment in postmenopausal women and men >= 50 years of age who have the following: Primary fracture prevention: * T-score <= - 2.5 at the femoral neck, total hip, lumbar spine, 33% radius (some uncertainty with existing data) by DXA. * Low bone mass (osteopenia: T-score between - 1.0 and - 2.5) at the femoral neck or total hip by DXA with a 10-year hip fracture risk >= 3% or a 10-year major osteoporosis-related fracture risk >= 20% (i.e., clinical vertebral, hip, forearm, or proximal humerus) based on the [place]-adapted FRAXregistered model. Secondary fracture prevention: * Fracture of the hip or vertebra regardless of BMD [4, 5]. * Fracture of proximal humerus, pelvis, or distal forearm in persons with low bone mass (osteopenia: T-score between - 1.0 and - 2.5). The decision to treat should be individualized in persons with a fracture of the proximal humerus, pelvis, or distal forearm who do not have osteopenia or low BMD [12, 13]. Gely MS, Saray SL, Arlen KL, Love EM, Issa KG, AJ, Alex ES. The clinician's guide to prevention and treatment of osteoporosis. Osteoporos Int. 2021;33(10):8425-3874. doi: 10.1007/k51842-921-64575-y. Epub 2021Nov 03. Erratum in: Osteoporos Int. 2021Feb 02;: PMID: 92933584; PMCID: [id number]. Electronically authenticated by: MIGUE REYNOSO Date: 02/12/2024 15:15
== END 2024-02-12 12:49 | disposition home or self-care (01) ==
LOC: RAD 12:48
PROVIDERS: PCP Family Medicine; Visit Provider Registered Nurse
DX: M81.0 Age-related osteoporosis without current pathological fracture (principal)
CPT/HCPCS: 77080

== ENCOUNTER 2024-02-14 12:45 | Inpatient (IN) | payer OTHER, MEDICARE, SELFPAY ==
[2024-02-14] VITALS (18 sets, daily range): BP systolic 96–158; BP diastolic 49–71; PULSE 95–135; TEMP 36.8–38; O2SAT 89–98; BMI 18.3
--- NOTE | 2024-02-14 12:45 | ECG_ITS ---
[facility] Test Date: 2024-02-14 Pat Name: SANDRA CANALES Department: Room: - Gender: Female [employer]: : 1955 Requested By: ESME BURROUGHS Order Number: [id number] Reading MD: NATALIA YANEZ Measurements Intervals [place] Rate: 136 P: 79 MA: 124 QRS: 88 QRSD: 78 T: 270 QT: 260 QTc: 340 Interpretive Statements 1120 Sinus tachycardia [address] ST/T wave changes, can't exclude inferolateral ischemia Electronically Signed On 02-14-2024 21:19:23 EDT by NATALIA YANEZ
--- NOTE | 2024-02-14 12:45 | XR_ITS ---
The [address] [address] Patient Name: SANDRA Easton COVERT MRN: [id number] date: 1955 Sex: F Assigned Patient Location: ER Current Patient Location: ER Accession/Order Number: [id number] Exam Date: 02/14/2024 13:00 Report Date: 02/14/2024 13:32 At the request of: HERMINIO MORALES Procedure: XR chest 1V EXAMINATION: XR chest 1V HISTORY: weak, hx COPD COMPARISON: 12/19/2023 TECHNIQUE: AP portable FINDINGS: LUNGS: Biapical suture lines, stable. Linear opacity in the right lung base, atelectasis versus scar. VASCULATURE: No increased pulmonary vasculature. PLEURA: No pneumothorax, effusion, or pleural thickening. CARDIAC: No cardiomegaly or cardiac silhouette abnormality. MEDIASTINUM: No visible mass or adenopathy. BONES: No fracture or visible bone lesion. OTHER: Negative. XR/XR chest 1V IMPRESSION: No acute cardiopulmonary process Electronically authenticated by: ASAEL MALDONADO Date: 02/14/2024 13:32
--- NOTE | 2024-02-14 12:46 | ED.GENADUL1 ---
HPI HPI - General Adult General Chief complaint: Weakness Time Seen by Provider: 02/14/24 12:49 Source: patient Mode of arrival: ambulance History of Present Illness HPI narrative: 68-year-old female presents for feeling weak and shaky. She states that starting last night she has been nauseous. She had minimal vomiting last night and minimal diarrhea. She states her whole body hurts. She does not complain of cough or shortness of breath. She did not run out of any of her medications. She has not had a fever and did not have one here at triage. Related Data Home Medications ?Medication ?Instructions ?Recorded ?Confirmed aspirin 81 mg tablet,delayed 81 mg PO DAILY 03/06/23 12/18/23 release atorvastatin 40 mg tablet 40 mg PO .QHS 03/06/23 12/18/23 cholecalciferol (vitamin D3) 50 50 mcg PO DAILY 03/06/23 12/18/23 mcg (2,000 unit) tablet (Vitamin D3) duloxetine 30 mg capsule,delayed 90 mg PO DAILY 03/06/23 12/18/23 release eszopiclone 3 mg tablet (Lunesta) 3 mg PO .QHS 03/06/23 12/18/23 glipizide 5 mg tablet 5 mg PO DAILY 03/06/23 12/18/23 melatonin 5 mg tablet 5 mg PO .QHS 03/06/23 12/18/23 metoprolol tartrate 25 mg tablet 12.5 mg PO BID 03/06/23 12/18/23 mirabegron 50 mg tablet,extended 50 mg PO DAILY 03/06/23 12/18/23 release 24 hr (Myrbetriq) omeprazole 40 mg capsule,delayed 40 mg PO BID 03/06/23 12/18/23 release pregabalin 100 mg capsule (Lyrica) 100 mg PO Q12H 03/06/23 12/18/23 albuterol sulfate 90 mcg/actuation 2 puff inhalation Q4H PRN 12/18/23 12/18/23 aerosol inhaler shortness of breath or wheezing amlodipine 5 mg tablet 5 mg PO DAILY 12/18/23 12/18/23 guaifenesin 600 mg tablet, 1,200 mg PO BID 12/18/23 12/18/23 extended release 12 hr prednisone 5 mg tablet 10 mg PO DAILY 12/18/23 12/18/23 Previous Rx's ?Medication ?Instructions ?Recorded amoxicillin 875 mg-potassium 1 tab PO Q12H 14 days #28 tabs 12/21/23 clavulanate 125 mg tablet levofloxacin 750 mg tablet 750 mg PO DAILY 7 days #7 tabs 12/21/23 prednisone 10 mg tablets in a dose 10 mg PO DAILY #39 ea 12/21/23 pack Allergies Allergy/AdvReac Type Severity Reaction Status Date / Time azithromycin Allergy Severe Verified 12/18/23 14:47 [From Zithromax Z-Leonardo] Latex, Natural Rubber Allergy Severe Verified 12/18/23 14:47 Opioid HPI Opioid Management Most Recent Opioid Data: Last Pain Scale 6 12/21/23 00:07 Last Pain Intensity 0 03/06/23 15:53 Last ORT Total Score 0 12/18/23 18:39 Last ORT Risk Category Low Risk 12/18/23 18:39 Review of Systems ROS Narrative A ten point review of systems is negative except as noted above. [facility] Medical History (Updated 02/14/24 @ 15:36 by Matt Bond MD) Acute on chronic respiratory failure with hypoxia ?J96.21 - Acute and chronic respiratory failure with hypoxia (ICD-10) History of tobacco abuse ?Z87.891 - Personal history of nicotine dependence (ICD-10) Acute exacerbation of chronic obstructive pulmonary disease (COPD) ?J44.1 - Chronic obstructive pulmonary disease with (acute) exacerbation (ICD-10) CAD (coronary artery disease) ?I25.10 - Atherosclerotic heart disease of [place] coronary artery without angina pectoris (ICD-10) Essential hypertension ?I10 - Essential (primary) hypertension (ICD-10) Type 2 diabetes mellitus with hyperglycemia ?E11.65 - Type 2 diabetes mellitus with hyperglycemia (ICD-10) Polymyalgia rheumatica ?M35.3 - Polymyalgia rheumatica (ICD-10) Non-ST elevated myocardial infarction (non-STEMI) ?I21.4 - Non-ST elevation (NSTEMI) myocardial infarction (ICD-10) Hyperlipidemia ?E78.5 - Hyperlipidemia, unspecified (ICD-10) Hyperglycemia, drug-induced ?R73.9 - Hyperglycemia, unspecified (ICD-10) ?T50.905A - Adverse effect of unspecified drugs, medicaments and biological substances, initial encounter (ICD-10) COPD (chronic obstructive pulmonary disease) ?J44.9 - Chronic obstructive pulmonary disease, unspecified (ICD-10) Depression ?F32.A - Depression, unspecified (ICD-10) Acid reflux ?K21.9 - Gastro-esophageal reflux disease without esophagitis (ICD-10) Nerve pain ?M79.2 - Neuralgia and neuritis, unspecified (ICD-10) Back pain ?M54.9 - Dorsalgia, unspecified (ICD-10) Thoracotomy scar of right chest ?L90.5 - Scar conditions and fibrosis of skin (ICD-10) Sepsis ?A41.9 - Sepsis, unspecified organism (ICD-10) History of oxygen administration ?Z99.81 - Dependence on supplemental oxygen (ICD-10) UTI (urinary tract infection), bacterial ?N39.0 - Urinary tract infection, site not specified (ICD-10) ?A49.9 - Bacterial infection, unspecified (ICD-10) Urethral stenosis 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 [part of] (ICD-10) Stented coronary artery ?Z95.5 - Presence of coronary angioplasty implant and graft (ICD-10) Family History Mother Family history of COPD (chronic obstructive pulmonary disease) Brother Family history of COPD (chronic obstructive pulmonary disease) Father Family history of COPD (chronic obstructive pulmonary disease) Family history of stroke Social History Within the past year, how often did you have a drink containing alcohol: never Within the past year, how many standard drinks containing alcohol did you have on a typical day: 1 or 2 Within the past year, how often did you have six or more drinks on one occasion: never Total score: 0 Score interpretation: A score less than 3 is consistent with normal alcohol consumption. Smoking status: Former smoker Non-prescribed substance use: denies use Previous occupational history: disabled Highest level of school completed/degree received: Associate degree: occupational, technical, vocational program Are you now , , , , never or living with a partner: Little interest or pleasure in doing things: not at all Feeling down, depressed, or hopeless: not at all Feel stressed/tense/nervous/anxious/difficulty sleeping: only a little Do you think of yourself as: straight/heterosexual Gender Identity: female Exam Narrative Exam Narrative: Nurses note and vital signs reviewed and patient is not hypoxic. General: The patient appears in no apparent distress. Skin: Warm, dry, no pallor noted. There is no rash noted. Head: Normocephalic, atraumatic Eye: Normal conjunctiva, no drainage Ears, Nose, Mouth, and Throat: oral mucosa is moist. Nares patent. Cardiovascular: Regular Rate and Rhythm, tachycardic Respiratory: Bilateral rhonchi present with good air movement Back: non-tender GI: Soft and nontender Musculoskeletal: The patient has no evidence of calf tenderness, no pitting edema, symmetrical pulses noted bilaterally Neurological: A&O x4, normal speech Psychiatric: Cooperative Constitutional Vital Signs, click to edit/add: Last Vital Signs Temp 98.2 F 02/14/24 12:41 Pulse 119 H 02/14/24 14:00 Resp 20 02/14/24 14:00 BP 134/49 02/14/24 14:00 Pulse Ox 98 02/14/24 14:00 O2 Del Method Room Air 02/14/24 13:28 O2 Flow Rate 2 02/14/24 13:28 Course Vital Signs Vital signs: Vital Signs Temperature 98.2 F 02/14/24 12:41 Pulse Rate 131 H 02/14/24 12:41 Respiratory Rate 22 H 02/14/24 12:41 Blood Pressure 158/68 H 02/14/24 12:41 Pulse Oximetry 95 02/14/24 12:41 Oxygen Delivery Method Room Air 02/14/24 12:41 Temperature 98.2 F 02/14/24 12:41 Pulse Rate 119 H 02/14/24 14:00 Respiratory Rate 20 02/14/24 14:00 Blood Pressure 134/49 02/14/24 14:00 Pulse Oximetry 98 02/14/24 14:00 Oxygen Delivery Method Room Air 02/14/24 13:28 Oxygen Delivery Flow Rate 2 02/14/24 13:28 Medical Decision Making MDM Narrative Medical decision making narrative: Pyelonephritis is found on CAT scan with white count of 20,000. Cultures were taken and she was given 2 g of IV Rocephin and is being admitted. Treatment diagnosis and disposition were discussed with the patient. Differential Diagnosis Differential Diagnosis: UTI, pyelonephritis, dehydration, COVID Lab Data Lab results reviewed: Yes I reviewed the patient's lab results Labs: Lab Results 02/14/24 02/14/24 02/14/24 Range/Units 12:51 12:55 13:07 WBC 20.6 H (4.0-11.0) 10^3/uL RBC 4.40 (4.20-5.40) 10^6/uL Hgb 13.4 (12.0-16.0) g/dL Hct 40.3 (36.0-48.0) % MCV 91.6 (81.0-99.0) fL MCH 30.5 (26.7-34.0) pg MCHC 33.3 (29.9-35.2) g/dL RDW 13.1 (11.0-15.0) % Plt Count 218 (150-450) 10^3/uL MPV 9.5 (9.5-13.5) fL Seg Neuts % (Manual) 90.0 H (43.0-75.0) Band Neutrophils % 2.0 (0-5) % Lymphocytes % (Manual) 3.0 L (20.5-60.0) % Monocytes % (Manual) 4.0 (1.7-12.0) % Eosinophils % (Manual) 1.0 (0.9-7.0) % Basophils % (Manual) 0.0 L (0.2-2.0) % Neutrophils # (Manual) 18.54 H (1.4-6.5) 10^3/uL Band Neutrophils # 0.4 H (0.0-0.3) 10^3/uL Lymphocytes # (Manual) 0.61 L (1.20-3.80) 10^3/uL Monocytes # (Manual) 0.82 H (0.30-0.80) 10^3/uL Eosinophils # (Manual) 0.20 (0.00-0.70) 10^3/uL Basophils # (Manual) 0.00 (0.00-0.10) 10^3/uL Sodium 134 L (136-145) mmol/L Potassium 3.2 L (3.5-5.1) mmol/L Chloride 96 L (98-107) mmol/L Carbon Dioxide 28.6 (21.0-32.0) mmol/L Anion Gap 12.6 BUN 23.0 H (7.0-18.0) mg/dL Creatinine 1.37 H (0.55-1.02) mg/dL Est GFR ( Amer) 47 L (>=60) Est GFR (Non-Af Amer) 39 L (>=60) BUN/Creatinine Ratio 16.8 Glucose 302 H (74-106) mg/dL Lactate 2.0 (0.4-2.0) mmol/L Calcium 9.4 (8.5-10.1) mg/dL Troponin I High Sens 21.1 (4.0-51.3) pg/mL Urine Color Lt. yellow (YELLOW) Urine Clarity Sl cloudy (CLEAR) Urine pH 5.5 (5.0-9.0) Ur Specific [place] 1.025 (1.005-1.025) Urine Protein 100 A (NEG/TRACE) mg/dL Urine Glucose (UA) 500 A (NEGATIVE) mg/dL Urine Ketones Negative (NEGATIVE) mg/dL Urine Occult Blood Large A (NEGATIVE) Urine Nitrite Negative (NEGATIVE) Urine Bilirubin Negative (NEGATIVE) Urine Urobilinogen 0.2 (0.2-1.0) EU/dL Ur Leukocyte Esterase Small A (NEGATIVE) Urine RBC 20-50 A (0-2) #/HPF Urine WBC >100 A (NONE SEEN) #/HPF Ur Squamous Epith Cells Few A (NONE/RARE) #/LPF Urine Crystals None seen (None Seen) #/HPF Urine Bacteria Large A (NONE SEEN) #/HPF Urine Casts None seen (NONE SEEN) #/LPF Urine Mucus None seen (NONE SEEN) Ur Culture Indicated? Yes SARS-CoV-2 Ag (CV2AG) Negative (NEGATIVE) Imaging Data CT scan - abdomen: Radiologist's impression: ITS Impressions Chest X-Ray 02/14/24 12:45 IMPRESSION: No acute cardiopulmonary process Electronically authenticated by: ASAEL MALDONADO Date: 02/14/2024 13:32 Abdomen/Pelvis CT 02/14/24 13:41 IMPRESSION: Right pyelonephritis Electronically authenticated by: ASAEL MALDONADO Date: 02/14/2024 15:29 ECG Data Attestation: I personally reviewed and interpreted this ECG as follows: (EKG on my interpretation shows sinus rhythm with a rate of 136) Discharge Plan Discharge Chief Complaint: Weakness Clinical Impression: Acute pyelonephritis Patient Disposition: Admitted As Inpatient Time of Disposition Decision: 15:36 Condition: Good
[2024-02-14 13:04] LABS: Hematocrit 40.3 % (36.0-48.0); Hemoglobin 13.4 g/dL (12.0-16.0); Mean Corpuscular HGB Conc 33.3 g/dL (29.9-35.2); Mean Corpuscular Hemoglobin 30.5 pg (26.7-34.0); Mean Corpuscular Volume 91.6 fL (81.0-99.0); Mean Platelet Volume 9.5 fL (9.5-13.5); Platelet Count 218 10^3/uL (150-450); Red Cell Distribution Width 13.1 % (11.0-15.0); White Blood Count 20.6 10^3/uL (4.0-11.0)
[2024-02-14] MEDS: 0.9 % SODIUM CHLORIDE 1,000 ML 1000 ML IV (13:04)
[2024-02-14 13:05] LABS: Bilirubin Urine NEGATIVE (NEGATIVE); Blood Urine LARGE (NEGATIVE); Clarity Urine SL CLOUDY (CLEAR); Color Urine LT. YELLOW (YELLOW); Glucose Urine UA 500 mg/dL (NEGATIVE); Ketones Urine NEGATIVE (NEGATIVE); Leukocyte Esterase Urine SMALL (NEGATIVE); Nitrite Urine NEGATIVE (NEGATIVE); Protein Urine 100 mg/dL (NEG/TRACE); Specific Gravity Urine 1.025 (1.005-1.025); Urobilinogen Urine 0.2 EU/dL (0.2-1.0); pH Urine 5.5 (5.0-9.0)
[2024-02-14] MEDS: ONDANSETRON PF 4 MG/2 ML VIAL IV ×2 (13:05→23:23)
[2024-02-14 13:15] LABS: Bacteria Urine LARGE #/HPF (NONE SEEN); RBC Urine 20-50 #/HPF (0-2); WBC Urine >100 #/HPF (NONE SEEN)
[2024-02-14 13:16] LABS: Cast Seen? NONE SEEN #/LPF (NONE SEEN); Crystals Seen? None Seen #/HPF (None Seen); Mucus Urine NONE SEEN (NONE SEEN); Squamous Epithelial Cell Urine FEW #/LPF (NONE/RARE); Urine Culture Indicated YES
[2024-02-14 13:22] LABS: Anion Gap 12.6; BUN Creatinine Ratio 16.8; Calcium 9.4 mg/dL (8.5-10.1); Carbon Dioxide 28.6 mmol/L (21.0-32.0); Chloride 96 mmol/L (98-107); Estimated GFR (African America 47 (>=60); Estimated GFR (Non-African Ame 39 (>=60); Glucose 302 mg/dL (74-106); Potassium 3.2 mmol/L (3.5-5.1); Sodium 134 mmol/L (136-145); Troponin I High Sensitivity 21.1 pg/mL (4.0-51.3)
[2024-02-14 13:24] LABS: Band Neutrophils Absolute 0.4 10^3/uL (0.0-0.3); Lymphocytes Absolute Manual 0.61 10^3/uL (1.20-3.80); Monocytes Absolute Manual 0.82 10^3/uL (0.30-0.80); Segmented Neut Absolute Manual 18.54 10^3/uL (1.4-6.5)
--- NOTE | 2024-02-14 13:29 | PC.NURSE ---
while on ra pt was 89-90%, 2l nc placed and will continue to monitor
[2024-02-14 13:31] LABS: Internal Control Within Normal Limits; SARS-CoV-2 Ag NEGATIVE (NEGATIVE)
--- NOTE | 2024-02-14 13:41 | CT_ITS ---
[address] [address] Patient Name: SANDRA Easton COVERT MRN: [facility]:[id number] date: 1955 Sex: F Assigned Patient Location: ER Current Patient Location: ER Accession/Order Number: [id number] Exam Date: 02/14/2024 14:13 Report Date: 02/14/2024 15:29 At the request of: HERMINIO MORALES Procedure: CT abdomen pelvis w con EXAMINATION: CT abdomen pelvis w con HISTORY: UTI, r/o pyelo COMPARISON: No relevant comparison available. TECHNIQUE: CT images were created with IV contrast. Axial, Coronal, and Sagittal images. Dose reduction techniques were achieved by using automated exposure control and/or adjustment of mA and/or kV according to patient size and/or use of iterative reconstruction technique. FINDINGS: LUNG BASES: Moderate emphysema LIVER: No enlargement, atrophy, abnormal density, or significant focal lesion. BILIARY: No visible dilatation or calcification. PANCREAS: No lesion, fluid collection, ductal dilatation, or atrophy. SPLEEN: No enlargement or focal lesion. ADRENALS: No mass or enlargement. KIDNEYS: Asymmetric enlargement of the right kidney with heterogeneous cortical enhancement. Right perinephric stranding. No hydronephrosis. BOWEL/MESENTERY: Moderate stool in the rectum which measures 7.2 cm transversely. Nonobstructive bowel gas pattern AORTA/VASCULAR: No aortic aneurysm. Moderate diffuse calcific atherosclerosis RETROPERITONEUM: No mass or adenopathy. LYMPH NODES: No adenopathy. URINARY BLADDER: Some mild wall thickening measuring up to 5 mm. Right-sided diverticulum PELVIC ORGANS: No visible mass. Pelvic organs appropriate for patient age. ABDOMINAL WALL: No mass or hernia. BONES: No bony lesion or fracture. Normal alignment. Anterior wedge compression fracture of T12. Superior endplate compression L1 and L4 OTHER: Negative. CT/CT abdomen pelvis w con IMPRESSION: Right pyelonephritis Electronically authenticated by: ASAEL MALDONADO Date: 02/14/2024 15:29
[2024-02-14] MEDS: CEFTRIAXONE 1,000 MG in 0.9 % SODIUM CHLORIDE 50 ML 100 MG IV ×2 (14:36→15:50)
[2024-02-14] MEDS: ACETAMINOPHEN 325 MG TABLET 650 MG PO ×2 (15:51→23:12)
--- NOTE | 2024-02-14 16:33 | P.HP_ITS ---
HPI H&P: HPI History of Present Illness Chief complaint: acute pyelonephritis Narrative: 68-year-old female with prior history of recurrent urinary tract infection was in her usual state of health when since yesterday she started to experience nausea, generalized bodyaches/malaise along with right flank pain. She is unsure of whether or not she had a fever but she was noted to have low-grade fever in ER. Workup in ER was consistent with sepsis secondary to right-sided pyelonephritis. Patient was started on IV fluids IV antibiotic and admitted for further care. Upon my assessment, patient is still feels nauseous along with generalized bodyaches. She still has considerable right costovertebral angle tenderness and pain. She denies hematuria, polyuria or oliguria. She denies constipation or diarrhea. She denies vomiting but has poor oral intake due to loss of appetite. Patient was recently admitted to the hospital for pneumonia in December earlier this year. Opioid HPI Opioid Management Most Recent Pain and Opioid Data: Last Pain Scale 6 12/21/23 00:07 Last Pain Intensity 0 03/06/23 15:53 Last ORT Total Score 0 12/18/23 18:39 Last ORT Risk Category Low Risk 12/18/23 18:39 Review of Systems ROS Status of ROS 10 or more systems reviewed and unremark able except as noted in history and below [facility] Medical History (Updated 02/14/24 @ 16:46 by Shaikh Rick MD) Immunosuppressed status ?D84.9 - Immunodeficiency, unspecified (ICD-10) Chronic steroid use Temporal arteritis ?M31.6 - Other giant cell arteritis (ICD-10) CKD stage 3b, GFR 30-44 ml/min ?N18.32 - Chronic kidney disease, stage 3b (ICD-10) Chronic respiratory failure with hypoxia ?J96.11 - Chronic respiratory failure with hypoxia (ICD-10) Acute on chronic respiratory failure with hypoxia ?J96.21 - Acute and chronic respiratory failure with hypoxia (ICD-10) History of tobacco abuse ?Z87.891 - Personal history of nicotine dependence (ICD-10) Acute exacerbation of chronic obstructive pulmonary disease (COPD) ?J44.1 - Chronic obstructive pulmonary disease with (acute) exacerbation (ICD-10) CAD (coronary artery disease) ?I25.10 - Atherosclerotic heart disease of [place] coronary artery without angina pectoris (ICD-10) Essential hypertension ?I10 - Essential (primary) hypertension (ICD-10) Type 2 diabetes mellitus with hyperglycemia ?E11.65 - Type 2 diabetes mellitus with hyperglycemia (ICD-10) Polymyalgia rheumatica ?M35.3 - Polymyalgia rheumatica (ICD-10) Non-ST elevated myocardial infarction (non-STEMI) ?I21.4 - Non-ST elevation (NSTEMI) myocardial infarction (ICD-10) Hyperlipidemia ?E78.5 - Hyperlipidemia, unspecified (ICD-10) Hyperglycemia, drug-induced ?R73.9 - Hyperglycemia, unspecified (ICD-10) ?T50.905A - Adverse effect of unspecified drugs, medicaments and biological substances, initial encounter (ICD-10) COPD (chronic obstructive pulmonary disease) ?J44.9 - Chronic obstructive pulmonary disease, unspecified (ICD-10) Depression ?F32.A - Depression, unspecified (ICD-10) Acid reflux ?K21.9 - Gastro-esophageal reflux disease without esophagitis (ICD-10) Nerve pain ?M79.2 - Neuralgia and neuritis, unspecified (ICD-10) Back pain ?M54.9 - Dorsalgia, unspecified (ICD-10) Thoracotomy scar of right chest ?L90.5 - Scar conditions and fibrosis of skin (ICD-10) History of oxygen administration ?Z99.81 - Dependence on supplemental oxygen (ICD-10) UTI (urinary tract infection), bacterial ?N39.0 - Urinary tract infection, site not specified (ICD-10) ?A49.9 - Bacterial infection, unspecified (ICD-10) Urethral stenosis 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 [part of] (ICD-10) Stented coronary artery ?Z95.5 - Presence of coronary angioplasty implant and graft (ICD-10) Family History Mother Family history of COPD (chronic obstructive pulmonary disease) Brother Family history of COPD (chronic obstructive pulmonary disease) Father Family history of COPD (chronic obstructive pulmonary disease) Family history of stroke Social History Within the past year, how often did you have a drink containing alcohol: never Within the past year, how many standard drinks containing alcohol did you have on a typical day: 1 or 2 Within the past year, how often did you have six or more drinks on one occasion: never Total score: 0 Score interpretation: A score less than 3 is consistent with normal alcohol consumption. Smoking status: Former smoker Non-prescribed substance use: denies use Previous occupational history: disabled Highest level of school completed/degree received: Associate degree: occupational, technical, vocational program Are you now , , , , never or living with a partner: Little interest or pleasure in doing things: not at all Feeling down, depressed, or hopeless: not at all Feel stressed/tense/nervous/anxious/difficulty sleeping: only a little Do you think of yourself as: straight/heterosexual Gender Identity: female Meds Home Medications and Allergies Home Medications ?Medication ?Instructions ?Recorded ?Confirmed ?Type aspirin 81 mg tablet,delayed 81 mg PO DAILY 03/06/23 02/14/24 History release atorvastatin 40 mg tablet 40 mg PO .QHS 03/06/23 02/14/24 History duloxetine 30 mg capsule,delayed 90 mg PO DAILY 03/06/23 02/14/24 History release eszopiclone 3 mg tablet (Lunesta) 3 mg PO .QHS PRN sleep 03/06/23 02/14/24 History melatonin 5 mg tablet 5 mg PO .QHS 03/06/23 02/14/24 History metoprolol tartrate 25 mg tablet 12.5 mg PO BID 03/06/23 02/14/24 History omeprazole 40 mg capsule,delayed 40 mg PO BID 03/06/23 02/14/24 History release pregabalin 100 mg capsule (Lyrica) 100 mg PO TID 03/06/23 02/14/24 History albuterol sulfate 90 mcg/actuation 2 puff inhalation Q4H PRN 12/18/23 02/14/24 History aerosol inhaler shortness of breath or wheezing amlodipine 5 mg tablet 5 mg PO QAM 12/18/23 02/14/24 History guaifenesin 600 mg tablet, 1,200 mg PO BID 12/18/23 02/14/24 History extended release 12 hr prednisone 5 mg tablet 10 mg PO DAILY 12/18/23 02/14/24 History cholecalciferol (vitamin D3) 50 50 mcg PO DAILY 02/14/24 02/14/24 History mcg (2,000 unit) capsule cranberry 500 mg capsule 500 mg PO DAILY 02/14/24 02/14/24 History ferrous sulfate 325 mg (65 mg 325 mg PO DAILY 02/14/24 02/14/24 History iron) tablet potassium chloride 20 mEq 20 meq PO DAILY PRN hypokalemia 02/14/24 02/14/24 History tablet,extended release Allergies Allergy/AdvReac Type Severity Reaction Status Date / Time azithromycin Allergy Severe Verified 12/18/23 14:47 [From Zithromax Z-Leonardo] Latex, Natural Rubber Allergy Severe Verified 12/18/23 14:47 Exam Constitutional Vital Signs, click to edit/add: Last Vital Signs Temp 99.1 F 02/14/24 16:24 Pulse 111 H 02/14/24 16:24 Resp 20 02/14/24 16:24 BP 113/71 02/14/24 16:24 Pulse Ox 94 L 02/14/24 16:24 O2 Del Method Nasal Cannula 02/14/24 16:24 O2 Flow Rate 2 02/14/24 16:24 Documenting provider has reviewed patient's vital signs: yes Common normals: no apparent distress and oriented x3 General appearance: cooperative and ill appearing Respiratory Common normals: normal respiratory effort Effort & inspection: able to speak in complete sentences and tachypneic Auscultation: diminished lung sounds Cardio Common normals: regular rate, S1 normal heart sound and S2 normal heart sound Rate: regular rate Heart sounds: S1 normal and S2 normal GI Common normals: Normal to inspection, nondistended, normoactive bowel sounds present, soft to palpation, non-tender and no hepatosplenomegaly Palpation: soft and no hepatosplenomegaly Back & Pelvis General back: CVA tenderness CVA tenderness: right Extremity Common normals: no clubbing, cyanosis or edema Neuro Common normals: oriented x3, moves all extremities and no focal motor deficits Psych Common normals: mental status grossly normal, denies hallucinations, denies homicidal ideation and denies suicidal ideation Results Labs Labs: Short CBC 02/14/24 Range/Units 12:55 WBC 20.6 H (4.0-11.0) 10^3/uL Hgb 13.4 (12.0-16.0) g/dL Hct 40.3 (36.0-48.0) % Plt Count 218 (150-450) 10^3/uL BMP 02/14/24 12:55 Sodium 134 L Potassium 3.2 L Chloride 96 L Carbon Dioxide 28.6 BUN 23.0 H Creatinine 1.37 H Glucose 302 H Calcium 9.4 Urine 02/14/24 Range/Units 12:51 Urine Color Lt. yellow (YELLOW) Urine Clarity Sl cloudy (CLEAR) Urine pH 5.5 (5.0-9.0) Ur Specific [place] 1.025 (1.005-1.025) Urine Protein 100 A (NEG/TRACE) mg/dL Urine Glucose (UA) 500 A (NEGATIVE) mg/dL Assessment and Plan Assessment and Plan (1) Sepsis: Assessment and Plan: SIRS (HR > 100, rr> 30, wbc 20k), Qsofa (RR >30, SBP less than 100) secondary to right-sided pyelonephritis. Continue with IV hydration. Started on IV Rocephin and Levaquin. Follow-up blood and urine culture. Qualifiers: Sepsis type: sepsis due to unspecified organism Sepsis acute organ dysfunction status: without acute organ dysfunction Qualified Code(s): A41.9 - Sepsis, unspecified organism (2) Acute pyelonephritis: Assessment and Plan: Acute pyelonephritis resulting in sepsis. On IV Rocephin and Levaquin. Follow- up urine and blood cultures. (3) COPD (chronic obstructive pulmonary disease): Assessment and Plan: No evidence of acute bronchospasm. Has chronic dyspnea because of COPD and uses oxygen at baseline. Continue with DuoNebs as needed. Qualifiers: COPD type: unspecified COPD Qualified Code(s): J44.9 - Chronic obstructive pulmonary disease, unspecified (4) Chronic respiratory failure with hypoxia: Assessment and Plan: 2 L oxygen at baseline. Monitor (5) CAD (coronary artery disease): Assessment and Plan: Prior history of percutaneous coronary intervention about 2 years ago. No evidence of acute or active cardiac ischemia. Monitor. Continue with aspirin, Lipitor, Lopressor. Qualifiers: Coronary Disease-Associated Artery/Lesion type: [place] artery [place] vs. transplanted heart: [place] heart Associated angina: without angina Qualified Code(s): I25.10 - Atherosclerotic heart disease of [place] coronary artery without angina pectoris (6) Essential hypertension: Assessment and Plan: Continue with home medications. Monitor blood pressure closely (7) CKD stage 3b, GFR 30-44 ml/min: Assessment and Plan: Renal function at baseline. Monitor serum creatinine/urine output closely. (8) Hyperlipidemia: Assessment and Plan: Continue with statin. Qualifiers: Hyperlipidemia type: mixed hyperlipidemia Qualified Code(s): E78.2 - Mixed hyperlipidemia (9) Temporal arteritis: Assessment and Plan: Patient has history of temporal arteritis and polymyalgia rheumatica. She is on chronic prednisone therapy for it. (10) Polymyalgia rheumatica: Assessment and Plan: Chronically on prednisone for polymyalgia rheumatica and temporal arteritis (11) Chronic steroid use: Assessment and Plan: For COPD/temporal arteritis and polymyalgia rheumatica. (12) Immunosuppressed status: Assessment and Plan: Immune suppressed status because of chronic prednisone therapy, type 2 diabetes and is at high risk of resistant organism due to recent antibiotic use, hospital admission, immunosuppressive status from prednisone therapy (13) Type 2 diabetes mellitus with hyperglycemia: Assessment and Plan: Continue with sliding scale insulin while inpatient. Patient is not on any oral medications as outpatient. 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 Monitor urine output, needs close hemodynamic monitoring as patient is still tachypneic and tachycardic. Recent history of hospital admission and antibiotic use and has high risk of infection from resistant organisms. Patient is immunosuppressed because of chronic prednisone use.
--- OUTSIDE RECORDS SUMMARY | 2024-02-14 16:33 | XMS_ITS | CCD ---
Author Organization [facility] [employer] Care Team Providers Care Final Inspector Motorcyles Name Role Phone IMAN WILLIS Admitting Unavailable [...] SERRANO, DR AVINASH Pelayo Procedure Practitioner Audrey vailable MANJIT, ORESTES Procedure Practitioner Unavailab davey REYNOSO, DR MIGUE Wild Consulting Unavailable NADERER, DR ERASTO Carrera Consulting Unavailable SAMSA ., ISHAN Procedure Practitioner Unavailab le GRECHNY ., PA ROSI Consulting Unavailabl e MANJIT, ORESTES Consulting Unavailable SAMSA ., ISHAN Consulting Unavailable KLGLENN, ASAEL Consulting Unavailable SCHNERUTHEI, STEPHEN Consulting Unavailable SISTER, BERENICE Consulting Unavailable [...] Unavailable MD Erasto Burroughs Primary Care Provider [phone] MD Remy Givens Attending Provider [phone] Remy Givens Attending Unavailable Remy Givens Admitting Unavailable Naderetorri, Erasto Primary Care Unavailable Erasto Burroughs MD Primary Care Provider [phone] Ihsan BROWN Attending Unavailable Ihsan BROWN Attending Unavailable Ihsan BROWN Attending Unavailable Iman Jeter Attending Unavaila BONITA Frye Referring Unavailable MOJER LUI Attending Unavailable MOHU, JER Attending Unavailable AVINASH SERRANO Referring Unavailable JAZMIN EASLEY Admitting Unavailable KONG BEAULIEU Attending Unavailable KONG BEAULIEU Referring Unavailable MERZA, NOORALDIN Referring Unavailable MERZA, NOORALDIN Referring Unavailable Allergies Allergy Classification Reported Allergen(s) Allergy Type Date of Onset Reaction(s) Facility (4 sources) Azithromycin; Translations: [AZITHROMYCIN] Drug Allergy 9 [facility] Repository (5 sources) Latex; Translations: [Latex] Drug allergy (disorder) 7 [facility] Repository (1 source) Azithromycin Drug Allergy 2 [facility] Repository (1 source) Latex Drug allergy (disorder) 2 [facility] Repository (1 source) Azithromycin Drug Allergy 3 [facility] (1 source) Latex Allergy to substance 3 [facility] (1 source) Azithromycin; Translations: [Zithromax] Drug Allergy [facility] Repository Medications Current Medications Medication [...] disease (4 sources) Atherosclerotic heart disease of [place] coronary artery without angina pectoris; Translations: [ATHSCL HEART DISEASE OF [place] CORONARY ARTERY W/O ANG PCTRS] Onset: 03-08-20 22 Chronic Coronary atherosclerosis and other heart disease (2 sources) Presence of coronary angioplasty implant and graft; Translations: [Presence of coronary angioplasty implant and graft] Onset: 01-07-20 Episodic Deficiency and other anemia (1 source) [...] 12-23-19 Chronic Other aftercare (5 sources) Other skilled nursing (current) drug therapy; Translations: [OTH TELEPHONE QUOTATION CLERK CURRENT DRUG THERAPY] Onset: 05-01-20 Episodic Other aftercare (1 source) Post-discharge follow-up; Translations: [Encounter for follow-up examination after completed treatment for conditions other than malignant neoplasm] Onset: 06-14-20 23 06-14-2023 Episodic Other circulatory disease (1 source) Raynaud's syndrome without gangrene; Translations: [RAYNAUDS SYNDROME WITHOUT GANGRENE] Onset: 06-12-20 22 Chronic Other circulatory disease (2 sources) Other [...] NONSPECIFIC ABN FIND LNG FIELD] Onset: 11-01-19 23 Episodic Other non-traumatic joint disorders (1 source) [...] Onset: 04-04-2022 Episodic Other aftercare (1 source) detention (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; Translations: [TELEPHONE QUOTATION CLERK CURRENT USE OF ASPIRIN] Onset: 05-01-2022 Episodic Other aftercare (1 source) supervisor intermediates (current) use of antithrombotics/ant iplatelets; Translations: [RESIDENTIAL ANTITHROMBOT/ANTIPL ATLETS] Onset: 03-16-2022 Episodic Other circulatory [...] Test Name Value Interpretation Reference Range Facility 3602-12-2024 36 Tried to contact patient again. She has no VM. Normal [facility] 36on 01-29-2024 36 Regarding lab result s from 01/07/2024: MD Kika Becerra MA Blood work is ok, follow up as planned in 6 months. Tried to contact patient but no VM. Will try again tomorrow. Normal [facility] Office Visiton 01-07-2024 Follow-up visit [id number] Covert,Lise Easton 1955 F Date Provider Department Center 01/07/2024 JER LARRY MARC Kirk Family History Problem Relation Age of Onset Stroke Father Stroke Father's Sister Coronary artery disease Paternal Grandmother Family Status - Relation Status Age at Father Father's Sister Paternal Grandmother Level of Service:20752 LA OFFICE/OUTPATIENT ESTABLISHED MOD MDM 30 MIN Normal [facility] Consent for Procedure/Surger yon 11-12-2023 Consent for Procedure/Surgery [id number] [facility] Patient Educationon 11-09-19 24 Patient Education Urology Urethral Dilation Urethral dilation [...] including vitamins, herbs, eye drops, creams, and dfyx-gaf-golhlrb medicines. ? Any problems you or family [...] tells you to take them. ? Taking fskw-tss-wvmzzgu medicines, vitamins, herbs, and supplements. General instructions [...] these instructions at home: Medicines ? Take kbth-dhy-xddvvwr and prescription medicines only as told by [...] to prevent or treat constipation: ? Take qqzw-zet-cdjojby or prescription medicines. ? Eat foods that [...] You pa (more content not included)... Normal [facility] Urology Office/Clinic Noteon 11-09-2023 Urology Office/Clinic Note [...] Tight The Urethra was dilated to: 20-32 Guatemalan with sounds. Specimens Removed: None Postoperative Information [...] Information KEVIN SALDIVAR, Ihsan Wild, URL [facility] [place] [address]- Additional Instructions: 6 mos w/ IO UD Patient Education Urethral Dilation Guillermina, Amanda Camara, personally scribed for Dr. Brown [...] Vitamin D3 (more content not included)... Normal [facility] Comment on above: Result Comment: Elec tronically Signed By: Ihsan BROWN MD\.br\Date and Time Signed: 11/09/23 12:24 EDT\.br\Electronically Co-Signed By: Amanda Camara.fritz\Date and Time Co-Signed: 11/09/23 12:14 EDT 36on 09-03-2023 36 Home health informed and script sent Normal [facility] Orders Onlyon 08-30-2023 Orders Only [id number] Covert,Lise Easton 1955 F Date Provider Department Center 08/30/2023 RUSH HENNESSY [facility] Family History Problem Relation Age of Onset Stroke Father Stroke Father's Sister Coronary artery disease Paternal Grandmother Family Status - Relation Status Age at Father Father's Sister Paternal Grandmother Normal [facility] Office Visiton 06-27-2023 Follow-up visit [id number] Covert,Lise Easton 1955 F Date Provider Department Center 06/27/2023 Andrew-JER NEFF MARC Kirk Family History Problem Relation Age of Onset Stroke Father Stroke Father's Sister Coronary artery disease Paternal Grandmother Family Status - Relation Status Age at Father Father's Sister Paternal Grandmother Level of Service:53329 LA OFFICE/OUTPATIENT ESTABLISHED LOW MDM 20 MIN Normal [facility] 30on 06-06-2023 30 The patient is [...] symptoms for stability, deterioration, or improvement Normal [facility] BASIC METABOLIC PANELon 11- Anion gap [Moles/Vol] 9 mmol/L Normal 7-20 [facility] Comment on above: Performed By: #### L [id number] #### [facility] ([facility]) [address] [place] [address] Calcium [Mass/Vol] 8.3 mg/dL Low 8.6-10.3 [facility] Comment on above: Performed By: #### L [id number] #### [facility] ([facility]) [address] [place] [address] Chloride [Moles/Vol] 99 mmol/L Normal 98-107 [facility] Comment on above: Performed By: #### L [id number] #### [facility] ([facility]) [address] [place] [address] CO2 [Moles/Vol] 26 mmol/L Normal 21-31 [facility] Comment on above: Performed By: #### L [id number] #### [facility] ([facility]) [address] [place] [address] Creatinine [Mass/Vol] 0.72 mg/dL Normal 0.60-1.20 [facility] Comment on above: Performed By: #### L [id number] #### [facility] ([facility]) [address] [place] [address] GLOMERULAR FILTRATION RATE ML/MIN/1.73 SQ M.PREDICTED 92.2 mL/min/1.73m*2 Normal >60.0 [facility] Comment on above: Result Comment: [facility]???s estimated glomerular filtration rate (eGFR) will [...] individuals. Performed By: #### L [id number] #### [facility] ([facility]) [address] [place] [address] Glucose [Mass/Vol] 107 mg/dL High 70-100 [facility] Comment on above: Performed By: #### L [id number] #### [facility] ([facility]) [address] [place] [address] Potassium [Moles/Vol] 3.9 mmol/L Normal 3.5-5.1 [facility] Comment on above: Performed By: #### L [id number] #### [facility] ([facility]) [address] [place] [address] Sodium [Moles/Vol] 130 mmol/L Low 136-145 [facility] Comment on above: Performed By: #### L [id number] #### [facility] ([facility]) [address] [place] [address] Urea nitrogen [Mass/Vol] 12 mg/dL Normal 7-25 [facility] Comment on above: Performed By: #### L [id number] #### [facility] [address] [place] [address] UREA NITROGEN/CREATININE (MASS RATIO) IN SER/PLAS 16.7 Normal [facility] Comment on above: Performed By: #### L [id number] #### [facility] [address] [place] [address] CBCon 06-06-2023 Erythrocyte distribution width (RBC) [Ratio] 13.4 % Normal 11.5-15.0 [facility] Comment on above: Performed By: #### L [id number] #### [facility] ([facility]) [address] [place] [address] ERYTHROCYTE MEAN CORPUSCULAR HEMOGLOBIN CONCENTRATION (G/DL) BY AUTOMATED 33.4 g/dL Normal 32.0-35.0 [facility] Comment on above: Performed By: #### L [id number] #### [facility] ([facility]) [address] [place] [address] Hematocrit (Bld) [Volume fraction] 28.7 % Low 36.0-48.0 [facility] Comment on above: Performed By: #### L [id number] #### [facility] ([facility]) [address] [place] [address] Hemoglobin (Bld) [Mass/Vol] 9.6 g/dL Low 12.0-15.0 [facility] Comment on above: Performed By: #### L [id number] #### [facility] ([facility]) [address] [place] [address] MCH (RBC) [Entitic mass] 28.2 pg Normal 27.0-33.0 [facility] Comment on above: Performed By: #### L [id number] #### [facility] ([facility]) [address] [place] [address] MCV (RBC) [Entitic vol] 84.4 fL Normal 82.0-98.0 [facility] Comment on above: Performed By: #### L [id number] #### [facility] ([facility]) [address] [place] [address] PLATELETS (10*3/UL) IN BLOOD AUTOMATED COUNT 522 10*3/uL High 150-400 [facility] Comment on above: Performed By: #### L [id number] #### [facility] ([facility]) [address] [place] [address] RBC (Bld) [#/Vol] 3.40 10*6/uL Low 3.80-5.00 [place] Comment on above: Performed By: #### L [id number] #### [facility] ([facility]) [address] [place] [address] WBC (Bld) [#/Vol] 10.31 10*3/uL Normal 4.00-10.60 [facility] Comment on above: Performed By: #### L [id number] #### [facility] ([facility]) [address] [place] [address] Letter (Out)on 06-06-2023 Letter (Out) [id number] Covert,Lise Easton 1955 F Date Provider Department Center 06/06/2023 [id number], GENERIC PRO*INIT None Family History Problem Relation Age of Onset Stroke Father Stroke Father's Sister Coronary artery disease Paternal Grandmother Family Status - Relation Status Age at Father Father's Sister Paternal Grandmother Normal [facility] MAGNESIUMon 06-06-2023 Magnesium [Mass/Vol] 1.9 mg/dL Normal 1.9-2.7 [facility] Comment on above: Performed By: #### L [id number] #### [facility] ([facility]) [address] [place] [address] 30on 06-05-2023 30 The patient is Moderately Stable - Low risk of patient condition declining or worsening The patient's goals for the shift include comfort The clinical goals for the shift include stable vitals Normal [facility] 30 Daily Case Managemen t Update Multidisciplinary rounds have been completed. Barriers to Discharge: Transfer from [place] for chest pain and NSTEMI. TTE ordered. Pending cardio rec. Trop was .06 down to .04. +UTI and Pneumonia. Continue IV Rocephin. Urine and blood cultures pending. Patient is from home with [facility] home 02 Diet: Dietary Orders (From admission, [...] your name here: DANIEL GUERIN 06/05/23 1508 Normal [facility] 30 The patient is Moderately Unstable - Medium risk of patient condition declining or worsening The patient's goals for the shift include comfort The clinical goals for the shift include vss Over the shift, the patient did not make progress toward the following goals. Barriers to progression include . Recommendations to address these barriers include . Normal [facility] 30 The patient is Moderately Stable [...] injury: Assess patient frequently for physical needs [place] fall precautions as indicated by assessment Identify [...] and prevent overall improvement and discharge Normal [facility] ANTI-XA (HEPARIN LEVEL)on HEPARIN UNFRACTIONATED (U/ML) IN PPP BY CHROMOGENIC METHOD <0.10 Invalid Interpretation Code 0.3-0.7 [facility] Comment on above: Order Comment: Check anti-Xa level every 6 hours while on heparin infusion, or per protocol. Result Comment: Mitchell roxaban and Apixaban will interfere with the anti Xa assay used to monitor UFH and LMWH. Performed By: #### L [id number] #### [facility] ([facility]) [address] [place] [address] HEPARIN UNFRACTIONATED (U/ML) IN PPP BY CHROMOGENIC METHOD <0.10 Invalid Interpretation Code 0.3-0.7 [facility] Comment on above: Order Comment: Check anti-Xa level every 6 hours while on heparin infusion, or per protocol. Result Comment: Mitchell roxaban and Apixaban will interfere with the anti Xa assay used to monitor UFH and LMWH. Performed By: #### L [id number] #### [facility] ([facility]) [address] [place] [address] APTTon 06-05-2023 ACTIVATED PARTIAL THROMBOPLASTIN TIME IN PPP BY COAGULATION ASSAY 38.8 Seconds High 25.0-35.0 [facility] Comment on above: Result Comment: Clin ical significance of the APTT is questionable in the presence of heparin. Performed By: #### L [id number] #### [facility] ([employer]) [address] [place] [address] B-TYPE NATRIURETIC PEPTIDEon 06-05-2023 Natriuretic peptide B (Bld) [Mass/Vol] 136 pg/mL High 0-100 [facility] Comment on above: Performed By: #### L [id number] #### [facility] ([facility]) [address] [place] [address] BLOOD CULTUREon 06-05-2023 Bacteria identified Cx Nom (Bld) No growth at 5 days Normal [facility] Comment on above: Performed By: #### L [id number] ####[facility] ([facility])[address] [place] [address] Order Comment: From a different site than #1. CBC WITH AUTO DIFFERENTIALon 06-05-2023 Basophils (Bld) [#/Vol] 0.05 10*3/uL Normal 0.00-0.20 [facility] Comment on above: Performed By: #### L [id number] #### [facility] [address] [place] [address] Basophils/100 WBC (Bld) 0.3 % Normal 0.0-1.0 [facility] Comment on above: Performed By: #### L [id number] #### [facility] ([facility]) [address] [place] [address] Eosinophils (Bld) [#/Vol] 0.02 10*3/uL Normal 0.00-0.50 [facility] Comment on above: Performed By: #### L [id number] #### [facility] [address] [place] [address] Eosinophils/100 WBC (Bld) 0.1 % Normal 0.0-6.0 [facility] Comment on above: Performed By: #### L [id number] #### [facility] [address] [place] [address] Erythrocyte distribution width (RBC) [Ratio] 13.3 % Normal 11.5-15.0 [facility] Comment on above: Performed By: #### L [id number] #### [facility] [address] [place] [address] ERYTHROCYTE MEAN CORPUSCULAR HEMOGLOBIN CONCENTRATION (G/DL) BY AUTOMATED 32.4 g/dL Normal 32.0-35.0 [facility] Comment on above: Performed By: #### L [id number] #### [facility] ([facility]) [address] [place] [address] Hematocrit (Bld) [Volume fraction] 35.8 % Low 36.0-48.0 [facility] Comment on above: Performed By: #### L [id number] #### [facility] ([facility]) [address] [place] [address] Hemoglobin (Bld) [Mass/Vol] 11.6 g/dL Low 12.0-15.0 [facility] Comment on above: Performed By: #### L [id number] #### [facility] ([facility]) [address] [place] [address] Immature granulocytes (Bld) [#/Vol] 0.17 10*3/uL Normal 0.00-0.20 [facility] Comment on above: Performed By: #### L [id number] #### [facility] ([facility]) [address] [place] [address] Immature granulocytes/100 WBC (Bld) 1.0 % Normal 0.0-1.0 [facility] Comment on above: Performed By: #### L [id number] #### [facility] ([facility]) [address] [place] [address] Lymphocytes (Bld) [#/Vol] 0.80 10*3/uL Low 1.20-4.00 [facility] Comment on above: Performed By: #### L [id number] #### [facility] ([facility]) [address] [place] [address] Lymphocytes/100 WBC (Bld) 4.6 % Low 20.0-45.0 [facility] Comment on above: Performed By: #### L [id number] #### [facility] ([facility]) [address] [place] [address] MCH (RBC) [Entitic mass] 28.3 pg Normal 27.0-33.0 [facility] Comment on above: Performed By: #### L [id number] #### [facility] [address] [place] [address] MCV (RBC) [Entitic vol] 87.3 fL Normal 82.0-98.0 [facility] Comment on above: Performed By: #### L [id number] #### [facility] ([facility]) [address] [place] [address] Monocytes (Bld) [#/Vol] 0.78 10*3/uL Normal 0.10-1.00 [facility] Comment on above: Performed By: #### L [id number] #### [facility] ([facility]) [address] [place] [address] Monocytes/100 WBC (Bld) 4.5 % Low 5.0-12.0 [facility] Comment on above: Performed By: #### L [id number] #### [facility] ([facility]) [address] [place] [address] Neutrophils (Bld) [#/Vol] 15.46 10*3/uL High 1.60-7.60 [facility] Comment on above: Performed By: #### L [id number] #### [facility] ([facility]) [address] [place] [address] Neutrophils/100 WBC (Bld) 89.5 % High 40.0-72.0 [facility] Comment on above: Performed By: #### L [id number] #### [facility]) [address] [place] [address] NRBC (PER 100 WBCS) BY AUTOMATED COUNT 0.0 % Normal 0 [facility] Comment on above: Performed By: #### L [id number] #### [facility] ([facility]) [address] [place] [address] PLATELETS (10*3/UL) IN BLOOD AUTOMATED COUNT 517 10*3/uL High 150-400 [facility] Comment on above: Performed By: #### L [id number] #### [facility] [address] [place] [address] RBC (Bld) [#/Vol] 4.10 10*6/uL Normal 3.80-5.00 [place] Comment on above: Performed By: #### L [id number] #### [facility] [address] [place] [address] WBC (Bld) [#/Vol] 17.28 10*3/uL High 4.00-10.60 [facility] Comment on above: Performed By: #### L [id number] #### [facility] ([facility]) [address] [place] [address] COMPREHENSIVE METABOLIC PANE [place] 06-05-2023 ALANINE AMINOTRANSFERASE (SGPT) (U/L) IN SER/PLAS <3 Low 7-52 [facility] Comment on above: Performed By: #### L [id number] #### [facility] [address] [place] [address] Albumin [Mass/Vol] 3.1 g/dL Low 3.5-5.7 [facility] Comment on above: Performed By: #### L [id number] #### [facility] [address] [place] [address] ALP [Catalytic activity/Vol] 83 U/L Normal 34-104 [facility] Comment on above: Performed By: #### L [id number] #### [facility] [address] [place] [address] Anion gap [Moles/Vol] 13 mmol/L Normal 7-20 [facility] Comment on above: Performed By: #### L [id number] #### [facility] ([facility]) [address] [place] [address] AST [Catalytic activity/Vol] 14 U/L Normal 13-39 [facility] Comment on above: Performed By: #### L [id number] #### [facility] ([facility]) [address] [place] [address] Bilirubin [Mass/Vol] 0.3 mg/dL Normal 0.3-1.0 [facility] Comment on above: Performed By: #### L [id number] #### [facility] [address] [place] [address] Calcium [Mass/Vol] 8.9 mg/dL Normal 8.6-10.3 [facility] Comment on above: Performed By: #### L [id number] #### [facility] [address] [place] [address] Chloride [Moles/Vol] 98 mmol/L Normal 98-107 [facility] Comment on above: Performed By: #### L [id number] #### [facility] ([facility]) [address] [place] [address] CO2 [Moles/Vol] 25 mmol/L Normal 21-31 [facility] Comment on above: Performed By: #### L [id number] #### [facility] ([facility]) [address] [place] [address] Creatinine [Mass/Vol] 0.96 mg/dL Normal 0.60-1.20 [facility] Comment on above: Performed By: #### L [id number] #### [facility] ([facility]) [address] [place] [address] GLOMERULAR FILTRATION RATE ML/MIN/1.73 SQ M.PREDICTED 65.3 mL/min/1.73m*2 Normal >60.0 [facility] Comment on above: Result Comment: [facility]???s estimated glomerular filtration rate (eGFR) will [...] individuals. Performed By: #### L [id number] #### [facility] [address] [place] [address] Glucose [Mass/Vol] 93 mg/dL Normal 70-100 [facility] Comment on above: Performed By: #### L [id number] #### [facility] ([facility]) [address] [place] [address] Potassium [Moles/Vol] 3.3 mmol/L Low 3.5-5.1 [facility] Comment on above: Performed By: #### L [id number] #### [facility]) [address] [place] [address] Protein [Mass/Vol] 5.7 g/dL Low 6.0-8.3 [facility] Comment on above: Performed By: #### L [id number] #### [facility]) [address] [place] [address] Sodium [Moles/Vol] 133 mmol/L Low 136-145 [facility] Comment on above: Performed By: #### L [id number] #### [facility]) [address] [place] [address] Urea nitrogen [Mass/Vol] 12 mg/dL Normal 7-25 [facility] Comment on above: Performed By: #### L [id number] #### [facility]) [address] [place] [address] UREA NITROGEN/CREATININE (MASS RATIO) IN SER/PLAS 12.5 Normal [facility] Comment on above: Performed By: #### L [id number] #### [facility] ([facility]) [address] [place] [address] CONSULTon 06-05-2023 CONSULT - Attestation signed by [...] Nausea / Vomiting and Urinary symptoms to [facility], there she was found to have UTI, labs showed WBC of 17 and she was started on IV antibiotics, work up also showed high sensitive troponin of 62, She doesn't report any chest pain, or discomfort. She was started on heparin drip and was transferred here to [facility]. Today she reports no chest [...] bilaterally. NEURO: (more content not included)... Normal [facility] ETHANOLon 06-05-2023 ETHANOL (MG/DL) IN SER/PLAS <10 Normal [facility] Comment on above: Performed By: #### L [id number] #### [facility] ([employer]) [address] [place] [address] ETHANOL CALCULATED (%) Normal [facility] Comment on above: Performed By: #### L [id number] #### [facility] ([employer]) [address] [place] [address] HEMOGLOBIN A1Con 06-05-2023 Glucose [Mass/Vol] 160 mg/dL Normal [facility] Comment on above: Performed By: #### L [id number] ####[facility] ([employer])[address] [place] [address] HbA1c (Bld) [Mass fraction] 7.2 % High 4.0-6.0 [facility] Comment on above: Performed By: #### L [id number] ####[facility] ([facility])[address] [place] [address] LACTIC ACID WITH 4 HOUR REFL EXon 06-05-2023 LACTATE (MMOL/L) IN SER/PLAS 1.1 mmol/L Normal 0.5-2.2 [facility] Comment on above: Performed By: #### L [id number] #### [facility] ([facility]) [address] [place] [address] LEGIONELLA ANTIGEN, URINEon 06-05-2023 LEGIONELLA AG, UR Negative Normal NEG [facility] Comment on above: Result Comment: L. p neumophila serogroup 1 antigen not detected. A negative result does not exclude infection with Leginella pnemophila serogroup 1 nor does it rule out other microbial-caused respiratory infections of disease caused by other serogroups of Legionella pneumophila. Test Performed by [employer] [address] [place] [address] - Released 06/05/2023 12:36 Performed By: #### L [id number] #### [facility] [address] [place] [address] LIPID PANELon 06-05-2023 CHOL/HDL 1.6 mg/dL Normal [facility] Comment on above: Performed By: #### L [id number] #### [facility] ([facility]) [address] [place] [address] Cholesterol [Mass/Vol] 74 mg/dL Low 120-200 [facility] Comment on above: Performed By: #### L [id number] #### [facility] ([facility]) [address] [place] [address] Magnesium [Mass/Vol] 65 mg/dL Normal 40-149 [facility] Comment on above: Result Comment: TRIG LYCERIDE REFERENCE RANGE: 20 YEARS AND OLDER CARDIOVASCULAR RISK LESS THAN 150 mg/dL LOW RISK 150 TO 199 mg/dL BORDERLINE RISK 200 mg/dL AND GREATER HIGH RISK Performed By: #### L [id number] #### [facility] ([facility]) [address] [place] [address] Magnesium [Mass/Vol] 14 mg/dL Normal 0-160 [facility] Comment on above: Performed By: #### L [id number] #### [facility] ([facility]) [address] [place] [address] Magnesium [Mass/Vol] 47 mg/dL Normal 23-92 [facility] Comment on above: Performed By: #### L [id number] #### [facility] ([facility]) [address] [place] [address] NON HDL CHOL. (LDL+VLDL) 27 Normal [facility] Comment on above: Performed By: #### L [id number] #### [facility] ([facility]) [address] [place] [address] TOTAL VLDL-C 13 mg/dL Normal 0-40 [facility] Comment on above: Performed By: #### L [id number] #### [facility] ([facility]) [address] [place] [address] MAGNESIUMon 06-05-2023 Magnesium [Mass/Vol] 1.1 mg/dL Low 1.9-2.7 [facility] Comment on above: Performed By: #### L [id number] #### [facility] ([facility]) [address] [place] [address] PHOSPHORUSon 06-05-2023 Magnesium [Mass/Vol] 2.8 mg/dL Normal 2.5-5.0 [facility] Comment on above: Performed By: #### L [id number] #### [facility] ([facility] [address] [facility] [place] [address] PROTIME-INRon 06-05-2023 INR IN PPP BY COAGULATION ASSAY 1.25 High 0.90-1.10 [facility] Comment on above: Result Comment: ACCC [...] 1995;[id number]. Performed By: #### L [id number] #### [facility] [address] [place] [address] PROTHROMBIN TIME (PT) IN PPP BY COAGULATION ASSAY 15.7 Seconds High 12.3-14.8 [facility] Comment on above: Performed By: #### L [id number] #### [facility] [address] [place] [address] TOXICOLOGY PANEL URINEon AMPHETAMINE+METHAMPHE TAMINE SCREEN (PRESENCE) IN URINE Negative Normal Negative [facility] Comment on above: Performed By: #### L [id number] ####[facility] ([facility])[address] [place] [address] BARBITURATES PRESENCE IN URINE BY SCREEN METHOD Negative Normal Negative [facility] Comment on above: Performed By: #### L [id number] ####[facility] [place] [address] Benzodiazepines Ql (U) Negative Normal Negative [facility] Comment on above: Performed By: #### L [id number] ####[facility] [place] [address] CANNABINOID (PRESENCE) IN URINE BY SCREEN METHOD Negative Normal Negative [facility] Comment on above: Performed By: #### L [id number] ####[facility] [place] [address] Cocaine Ql (U) Negative Normal Negative [facility] Comment on above: Performed By: #### L [id number] ####[facility] [place] [address] METHADONE (PRESENCE) IN URINE BY SCREEN METHOD Negative Normal Negative [facility] Comment on above: Performed By: #### L [id number] ####[facility] ([facility])[address] [place] [address] OPIATES (PRESENCE) IN URINE BY SCREEN METHOD Positive Abnormal Negative [facility] Comment on above: Performed By: #### L [id number] ####[facility] ([facility])[address] [place] [address] PHENCYCLIDINE PRESENCE IN URINE BY SCREEN METHOD Negative Normal Negative [facility] Comment on above: Performed By: #### L [id number] ####[facility] [place] [address] Propoxyphene Screen Ql (U) Negative Normal Negative [facility] Comment on above: Performed By: #### L [id number] ####[facility] ([facility])[address] [place] [address] TRICYCLIC ANTIDEPRESSANTS (PRESENCE) IN URINE Negative Normal Negative [facility] Comment on above: Performed By: #### L [id number] ####[facility] ([facility])[address] [place] [address] TROPONIN Ion 06-05-2023 Troponin I.cardiac [Mass/Vol] 0.04 ng/mL Normal 0.00-0.04 [facility] Comment on above: Performed By: #### L [id number] #### [facility] ([facility]) [address] [place] [address] Troponin I.cardiac [Mass/Vol] 0.06 ng/mL High 0.00-0.04 [facility] Comment on above: Performed By: #### L [id number] ####[facility] ([facility])[address] [place] [address] TSH3 REFLEX TO FT4on 023 THYROTROPIN (MIU/L) IN SER/PLAS BY DETECTION LIMIT <= 0.05 MIU/L 1.46 mIU/L Normal 0.34-5.60 [facility] Comment on above: Performed By: #### L [id number] ####[facility] [place] [address] URINALYSIS MICROSCOPIC WITH REFLEX CULTUREon 06-05-2023 CASTS IN URINE Normal [facility] Comment on above: Performed By: #### L [id number] ####[facility] ([facility])[address] [place] [address] CRYSTALS IN URINE Normal [facility] Comment on above: Performed By: #### L [id number] ####[facility] ([facility])[address] [place] [address] OTHER MICROSCOPIC ELEMENTS Normal [facility] Comment on above: Performed By: #### L [id number] ####[facility] [place] [address] RBC (#/HPF) IN URINE SEDIMENT 6-10 Abnormal None Seen [facility] Comment on above: Performed By: #### L [id number] ####[facility] [place] [address] SQUAMOUS EPITHELIAL CELLS (#/HPF) IN URINE SEDIMENT Many Abnormal None Seen, Occasional [facility] Comment on above: Performed By: #### L [id number] ####[facility] ([facility])[address] [place] [address] WBC (LEUKOCYTE) (#/HPF) IN URINE SEDIMENT >100 Abnormal None Seen [facility] Comment on above: Performed By: #### L [id number] ####[facility] ([facility] [place] [address] URINALYSIS WITH REFLEX CULTU REon 06-05-2023 BILIRUBIN, TOTAL PRESENCE IN URINE Negative Normal Negative [facility] Comment on above: Performed By: #### L [id number] ####[facility] [place] [address] Clarity (U) Clear Normal Clear [facility] Comment on above: Performed By: #### L [id number] ####[facility] ([facility])[address] [place] [address] Color (U) Yellow Normal Yellow [facility] Comment on above: Performed By: #### L [id number] ####[facility] ([facility])[address] [place] [address] Glucose (U) [Mass/Vol] Negative Normal Negative [facility] Comment on above: Performed By: #### L [id number] ####[facility] ([facility])[address] [place] [address] HEMOGLOBIN PRESENCE IN URINE Moderate Abnormal Negative [facility] Comment on above: Performed By: #### L [id number] ####[facility] ([facility])[address] [place] [address] Ketones Ql (U) Trace Abnormal Negative [facility] Comment on above: Performed By: #### L [id number] ####[facility] ([facility])[address] [place] [address] LEUKOCYTE ESTERASE PRESENCE IN URINE BY TEST STRIP Large Abnormal Negative [facility] Comment on above: Performed By: #### L [id number] ####[facility] ([facility])[address] [place] [address] NITRITE PRESENCE IN URINE Positive Abnormal Negative [facility] Comment on above: Performed By: #### L [id number] ####[facility] ([facility])[address] [place] [address] pH (U) 6.0 [pH] Normal 5.0-8.0 [facility] Comment on above: Performed By: #### L [id number] ####[facility] ([facility])[address] [place] [address] Protein (U) [Mass/Vol] 30 mg/dL Abnormal Negative [facility] Comment on above: Performed By: #### L [id number] ####[facility] ([facility])[address] [place] [address] Specific gravity (U) [Rel density] 1.012 Low 1.015-1.020 [facility] Comment on above: Performed By: #### L [id number] ####[facility] ([facility])[address] [place] [address] 30on 06-04-2023 30 The patient is Moderately Stable - Low risk of patient condition declining or worsening The patient's goals for the shift include comfort The clinical goals for the shift include VSS Normal [facility] Consent for Procedure/Surger yon 04-17-2023 Consent for Procedure/Surgery [id number] Normal [facility] Patient Educationon 04-16-20 23 Patient [...] including vitamins, herbs, eye drops, creams, and sfcu-plv-cbfwpoj medicines. ? Any problems you or family [...] tells you to take them. ? Taking lshp-quo-brpkank medicines, vitamins, herbs, and supplements. General instructions [...] these instructions at home: Medicines ? Take iudk-mfs-ygoczbs and prescription medicines only as told by [...] to prevent or treat constipation: ? Take lojq-qbz-fybmywb or prescription medicines. ? Eat foods that [...] You pa (more content not included)... Normal [facility] Urology Office/Clinic Noteon 04-16-2023 Urology [...] inflamed The Urethra was dilated to: 20-30 [place] with sounds. Specimens Removed: None Postoperative Information [...] months [facility] [address] [place] [address]- Additional Instructions: w/UD Patient Education Urethral Dilation [...] Procedure/Surgical Histo (more content not included)... Normal [facility] Comment on above: Result [...] by: MIGUE REYNOSO Date: 2022-10-31 17:34 Normal [facility] HEMOGLOBINon 10-31-2022 Hemoglobin (Bld) [Mass/Vol] 11.8 g/dL Critically low 12.0-16.0 [facility] Comment on above: Performed By: #### C VDTB #### [facility] [address] [address] [address] Kayley Hatfield BUNon 10-10-2022 Urea nitrogen [Mass/Vol] 13.0 mg/dL Normal 7.0-18.0 [facility] Comment on above: Performed By: #### L DH #### [facility] [address] [address] [address] Kayley Hatfield CALCIUMon 10-10-2022 Calcium [Mass/Vol] 9.7 mg/dL Normal 8.5-10.1 [facility] Comment on above: Performed By: #### L DH #### [facility] [address] [address] [address] Kayley Hatfield CREATININEon 10-10-2022 Creatinine [Mass/Vol] 1.19 mg/dL Critically high 0.55-1.02 [facility] Comment on above: Performed By: #### L DH #### [facility] [address] [address] [address] Kayley Hatfield EGFR-AF MARTINIQUAIS 55 mL/min/1.73m2 Critically low >=60 [facility] Comment on above: Performed By: #### L DH #### [facility] [address] [place] [address] Dr. Kayley Hatfield EGFR-NON AF MARTINIQUAIS 46 mL/min/1.73m2 Critically low >=60 [facility] Comment on above: Performed By: #### L DH #### [facility] [address] [place] [address] Dr. Kayley Hatfield CRPon 10-10-2022 CRP [Mass/Vol] mg/L Normal <=1.0 [facility] Comment on above: Performed By: #### L DH #### [facility] [address] [place] [address] Dr. Kayley Hatfield MAGNESIUMon 10-10-2022 Magnesium [Mass/Vol] 1.7 mg/dL Critically low 1.8-2.4 [facility] Comment on above: Performed By: #### L DH #### [facility] [address] [place] [address] Dr. Kayley Hatfield PHOSPHORUSon 10-10-2022 Phosphate [Mass/Vol] 4.0 mg/dL Normal 2.6-4.7 [facility] Comment on above: Performed By: #### L DH #### [facility] [address] [place] [address] Dr. Kayley Hatfield SED RATE WESTERGRENon 2022 SED RATE 25 mm/hr Normal <=30 [facility] Comment on above: Performed By: #### P RTELEC #### [facility] [address] [place] [address] Dr. Kayley Hatfield CBC AUTO DIFFon 05-01-2022 BASO # 0.1 103/ul Normal 0.0-0.1 [facility] Comment on above: Performed By: #### P RBC #### [facility] [address] [place] [address] Dr. Kayley Hatfield Basophils/100 WBC (Bld) 0.5 % Normal 0.2-2.0 [facility] Comment on above: Performed By: #### P RBC #### [facility] [address] [address] [address] Kayley Hatfield EO # 0.2 103/ul Normal 0.0-0.7 [facility] Comment on above: Performed By: #### P RBC #### [facility] [address] [address] [address] Kayley Hatfield Eosinophils/100 WBC (Bld) 1.2 % Normal 0.9-7.0 [facility] Comment on above: Performed By: #### P RBC #### [facility] [address] [address] [address] Kayley Hatfield Erythrocyte distribution width (RBC) [Ratio] 14.9 % Normal 11.0-15.0 [facility] Comment on above: Performed By: #### P RBC #### [facility] [address] [place] [address] Dr. Kayley Hatfield Hematocrit (Bld) [Volume fraction] 34.2 % Critically low 36.0-48.0 [facility] Comment on above: Performed By: #### P RBC #### [facility] [address] [place] [address] Dr. Kayley Hatfield Hemoglobin (Bld) [Mass/Vol] 10.3 g/dL Critically low 12.0-16.0 [facility] Comment on above: Performed By: #### P RBC #### [facility] [address] [place] [address] Dr. Kayley Hatfield IG # 0.19 10e3/ul Critically high 0.00-0.03 [facility] Comment on above: Performed By: #### P RBC #### [facility] [address] [place] [address] Dr. Kayley Hatfield IG % 1.3 % Critically high 0.0-0.5 [facility] Comment on above: Performed By: #### P RBC #### [facility] [address] [address] [address] Kayley Hatfield LYMPH # 1.1 103/ul Critically low 1.2-3.8 [facility] Comment on above: Performed By: #### P RBC #### [facility] [address] [address] [address] Kayley Hatfield Lymphocytes/100 WBC (Bld) 7.3 % Critically low 20.5-60.0 [facility] Comment on above: Performed By: #### P RBC #### [facility] [address] [address] [address] Kayley Hatfield MANUAL DIFF REQ NO Normal [facility] Comment on above: Performed By: #### P RBC #### [facility] [address] [address] [address] aKyley Hatfield MCH (RBC) [Entitic mass] 28.4 pg Normal 26.7-34.0 [facility] Comment on above: Performed By: #### P RBC #### [facility] [address] [place] [address] Dr. Kayley Hatfield MCHC (RBC) [Mass/Vol] 30.1 g/dL Normal 29.9-35.2 [facility] Comment on above: Performed By: #### P RBC #### [facility] [address] [place] [address] Dr. Kayley Hatfield MCV (RBC) [Entitic vol] 94.2 fL Normal 81.0-99.0 [facility] Comment on above: Performed By: #### P RBC #### [facility] [address] [place] [address] Dr. Kayley Hatfield MONO # 0.6 103/ul Normal 0.3-0.8 [facility] Comment on above: Performed By: #### P RBC #### [facility] [address] [place] [address] Dr. Kayley Hatfield Monocytes/100 WBC (Bld) 4.0 % Normal 1.7-12.0 [facility] Comment on above: Performed By: #### P RBC #### [facility] [address] [place] [address] Dr. Kayley Hatfield NEUT # 12.5 103/ul Critically high 1.4-6.5 [facility] Comment on above: Performed By: #### P RBC #### [facility] [address] [address] [address] Kayley Hatfield Neutrophils/100 WBC (Bld) 85.7 % Critically high 43.0-75.0 [facility] Comment on above: Performed By: #### P RBC #### [facility] [address] [address] [address] Kayley Hatfield Platelet mean volume (Bld) [Entitic vol] 8.5 fL Critically low 9.5-13.5 [facility] Comment on above: Performed By: #### P RBC #### [facility] [address] [address] [address] Kayley Hatfield PLT 574 103/ul Critically high 150-450 [facility] Comment on above: Performed By: #### P RBC #### [facility] [address] [place] [address] Dr. Kayley Hatfield RBC 3.63 106/ul Critically low 4.20-5.40 [facility] Comment on above: Performed By: #### P RBC #### [facility] [address] [place] [address] Dr. Kayley Hatfield WBC 14.6 103/ul Critically high 4.0-11.0 [facility] Comment on above: Performed By: #### P RBC #### [facility] [address] [place] [address] Dr. Kayley Hatfield MAGNESIUMon 05-01-2022 Magnesium [Mass/Vol] 2.1 mg/dL Normal 1.8-2.4 [facility] Comment on above: Performed By: #### O BSCRN #### [facility] [address] [place] [address] Dr. Kayley Hatfield PROF CHEM 8 (BAS METB)on Anion gap [Moles/Vol] 8.6 mmol/L Normal [facility] Comment on above: Performed By: #### O BSCRN #### [facility] [address] [place] [address] Dr. Kayley Hatfield Calcium [Mass/Vol] 9.0 mg/dL Normal 8.5-10.1 [facility] Comment on above: Performed By: #### O BSCRN #### [facility] [address] [address] [address] Kayley Hatfield Chloride [Moles/Vol] 101 mmol/L Normal 98-107 [facility] Comment on above: Performed By: #### O BSCRN #### [facility] [address] [address] [address] Kayley Hatfield CO2 [Moles/Vol] 33.0 mmol/L Critically high 21.0-32.0 [facility] Comment on above: Performed By: #### O BSCRN #### [facility] [address] [address] [address] Kayley Hatfield Creatinine [Mass/Vol] 0.94 mg/dL Normal 0.55-1.02 [facility] Comment on above: Performed By: #### O BSCRN #### [facility] [address] [address] [address] Kayley Hatfield EGFR-AF MARTINIQUAIS >60 Normal >=60 [facility] Comment on above: Performed By: #### O BSCRN #### [facility] [address] [address] [address] Kayley Hatfield EGFR-NON AF MARTINIQUAIS >60 Normal >=60 [facility] Comment on above: Performed By: #### O BSCRN #### [facility] [address] [address] [address] Kayley Hatfield Glucose [Mass/Vol] 143 mg/dL Critically high 74-106 [facility] Comment on above: Performed By: #### O BSCRN #### [facility] [address] [address] [address] Kayley Hatfield Potassium [Moles/Vol] 4.6 mmol/L Normal 3.5-5.1 [facility] Comment on above: Performed By: #### O BSCRN #### [facility] [address] [address] [address] Kayley Hatfield Sodium [Moles/Vol] 138 mmol/L Normal 136-145 [facility] Comment on above: Performed By: #### O BSCRN #### [facility] [address] [address] [address] Kayley Hatfield Urea nitrogen [Mass/Vol] 15.0 mg/dL Normal 7.0-18.0 [facility] Comment on above: Performed By: #### O BSCRN #### [facility] [address] [place] [address] Dr. Kayley Hatfield Urea nitrogen/Creatinine [Mass ratio] 16.0 mg/mg Normal [facility] Comment on above: Performed By: #### O BSCRN #### [facility] [address] [place] [address] Dr. Kayley Hatfield CBC AUTO DIFFon 04-26-2022 BASO # 0.1 103/ul Normal 0.0-0.1 [facility] Comment on above: Performed By: #### P RBC #### [facility] [address] [place] [address] Dr. Kayley Hatfield Basophils/100 WBC (Bld) 0.5 % Normal 0.2-2.0 [facility] [facility] Comment on above: Performed By: #### P RBC #### [facility] [address] [place] [address] Dr. Kayley Hatfield EO # 0.2 103/ul Normal 0.0-0.7 [facility] Comment on above: Performed By: #### P RBC #### [facility] [address] [place] [address] Dr. Kayley Hatfield Eosinophils/100 WBC (Bld) 1.8 % Normal 0.9-7.0 [facility] Comment on above: Performed By: #### P RBC #### [facility] [address] [place] [address] Dr. Kayley Hatfield Erythrocyte distribution width (RBC) [Ratio] 14.7 % Normal 11.0-15.0 [facility] Comment on above: Performed By: #### P RBC #### [facility] [address] [place] [address] Dr. Kayley Hatfield Hematocrit (Bld) [Volume fraction] 32.0 % Critically low 36.0-48.0 [facility] Comment on above: Performed By: #### P RBC #### [facility] [address] [address] [address] Kayley Hatfield Hemoglobin (Bld) [Mass/Vol] 9.9 g/dL Critically low 12.0-16.0 [facility] Comment on above: Performed By: #### P RBC #### [facility] [address] [address] [address] Kayley Hatfield IG # 0.07 10e3/ul Critically high 0.00-0.03 [facility] Comment on above: Performed By: #### P RBC #### [facility] [address] [address] [address] Kayley Hatfield IG % 0.6 % Critically high 0.0-0.5 [facility] Comment on above: Performed By: #### P RBC #### [facility] [address] [address] [address] Kayley Hatfield LYMPH # 1.2 103/ul Normal 1.2-3.8 [facility] Comment on above: Performed By: #### P RBC #### [facility] [address] [address] [address] Kayley Hatfield Lymphocytes/100 WBC (Bld) 10.9 % Critically low 20.5-60.0 [facility] Comment on above: Performed By: #### P RBC #### [facility] [address] [address] [address] Kayley Hatfield MANUAL DIFF REQ NO Normal [facility] Comment on above: Performed By: #### P RBC #### [facility] [address] [address] [address] Kayley Hatfield MCH (RBC) [Entitic mass] 28.4 pg Normal 26.7-34.0 [facility] Comment on above: Performed By: #### P RBC #### [facility] [address] [address] [address] Kayley Hatfield MCHC (RBC) [Mass/Vol] 30.9 g/dL Normal 29.9-35.2 [facility] Comment on above: Performed By: #### P RBC #### [facility] [address] [address] [address] Kayley Hatfield MCV (RBC) [Entitic vol] 92.0 fL Normal 81.0-99.0 [facility] Comment on above: Performed By: #### P RBC #### [facility] [address] [address] [address] Kayley Hatfield MONO # 1.4 103/ul Critically high 0.3-0.8 [facility] Comment on above: Performed By: #### P RBC #### [facility] [address] [address] [address] Kayley Hatfield Monocytes/100 WBC (Bld) 11.9 % Normal 1.7-12.0 [facility] Comment on above: Performed By: #### P RBC #### [facility] [address] [place] [address] Dr. Kayley Hatfield NEUT # 8.4 103/ul Critically high 1.4-6.5 [facility] Comment on above: Performed By: #### P RBC #### [facility] [address] [place] [address] Dr. Kayley Hatfield Neutrophils/100 WBC (Bld) 74.3 % Normal 43.0-75.0 [facility] Comment on above: Performed By: #### P RBC #### [facility] [address] [place] [address] Dr. Kayley Hatfield Platelet mean volume (Bld) [Entitic vol] 8.8 fL Critically low 9.5-13.5 [facility] Comment on above: Performed By: #### P RBC #### [facility] [address] [place] [address] Dr. Kayley Hatfield PLT 953 103/ul Critically high 150-450 [facility] Comment on above: Performed By: #### P RBC #### [facility] [address] [address] [address] Kayley Hatfield RBC 3.48 106/ul Critically low 4.20-5.40 [facility] Comment on above: Performed By: #### P RBC #### [facility] [address] [address] [address] Kayley Hatfield WBC 11.3 103/ul Critically high 4.0-11.0 [facility] Comment on above: Performed By: #### P RBC #### [facility] [address] [address] [address] Kayley Hatfield POINT OF CARE GLUCOSEon 04-08 Glucose [Mass/Vol] 225 mg/dL Critically high 74-106 [facility] Comment on above: Performed By: #### B [id number] #### [facility] [address] [address] [address] Kayley Hatfield PROF CHEM 8 (BAS METB)on Anion gap [Moles/Vol] 10.7 mmol/L Normal [facility] Comment on above: Performed By: #### P RBC #### [facility] [address] [place] [address] Dr. Kayley Hatfield Calcium [Mass/Vol] 9.2 mg/dL Normal 8.5-10.1 [facility] Comment on above: Performed By: #### P RBC #### [facility] [address] [place] [address] Dr. Kayley Hatfield Chloride [Moles/Vol] 103 mmol/L Normal 98-107 [facility] Comment on above: Performed By: #### P RBC #### [facility] [address] [place] [address] Dr. Kayley Hatfield CO2 [Moles/Vol] 29.2 mmol/L Normal 21.0-32.0 [facility] Comment on above: Performed By: #### P RBC #### [facility] [address] [place] [address] Dr. Kayley Hatfield Creatinine [Mass/Vol] 0.85 mg/dL Normal 0.55-1.02 [facility] Comment on above: Performed By: #### P RBC #### [facility] [address] [place] [address] Dr. Kayley Hatfield EGFR-AF MARTINIQUAIS >60 Normal >=60 [facility] Comment on above: Performed By: #### P RBC #### [facility] [address] [address] [address] Kayley Hatfield EGFR-NON AF MARTINIQUAIS >60 Normal >=60 [facility] Comment on above: Performed By: #### P RBC #### [facility] [address] [address] [address] Kayley Hatfield Glucose [Mass/Vol] 81 mg/dL Normal 74-106 [facility] Comment on above: Performed By: #### P RBC #### [facility] [address] [address] [address] Kayley Hatfield Potassium [Moles/Vol] 3.9 mmol/L Normal 3.5-5.1 [facility] Comment on above: Performed By: #### P RBC #### [facility] [address] [address] [address] Kayley Hatfield Sodium [Moles/Vol] 139 mmol/L Normal 136-145 [facility] Comment on above: Performed By: #### P RBC #### [facility] [address] [address] [address] Kayley Hatfield Urea nitrogen [Mass/Vol] 9.0 mg/dL Normal 7.0-18.0 [facility] Comment on above: Performed By: #### P RBC #### [facility] [address] [address] [address] Kayley Hatfield Urea nitrogen/Creatinine [Mass ratio] 10.6 mg/mg Normal [facility] Comment on above: Performed By: #### P RBC #### [facility] [address] [address] [address] Kayley Hatfield XR CHEST 2 Von [...] MIGUE REYNOSO Date: 2022-04-26 09:59 Normal [facility] BNPon 04-25-2022 Natriuretic peptide B (Bld) [Mass/Vol] 234.0 pg/mL Normal <=900.0 [facility] Comment on above: Performed By: #### P RTELEC #### [facility] [address] [place] [address] Dr. Kayley Hatfield CBC AUTO DIFFon 04-25-2022 BASO # 0.1 103/ul Normal 0.0-0.1 [facility] Comment on above: Performed By: #### P RBC #### [facility] [address] [place] [address] Dr. Kayley Hatfield Basophils/100 WBC (Bld) 0.4 % Normal 0.2-2.0 [facility] Comment on above: Performed By: #### P RBC #### [facility] [address] [place] [address] Dr. Kayley Hatfield EO # 0.2 103/ul Normal 0.0-0.7 [facility] Comment on above: Performed By: #### P RBC #### [facility] [address] [place] [address] Dr. Kayley Hatfield Eosinophils/100 WBC (Bld) 1.0 % Normal 0.9-7.0 [facility] Comment on above: Performed By: #### P RBC #### [facility] [address] [place] [address] Dr. Kayley Hatfield Erythrocyte distribution width (RBC) [Ratio] 14.8 % Normal 11.0-15.0 [facility] Comment on above: Performed By: #### P RBC #### [facility] [address] [place], [place] [id number] Dr. Kayley Hatfield Hematocrit (Bld) [Volume fraction] 35.4 % Critically low 36.0-48.0 [facility] Comment on above: Performed By: #### P RBC #### [facility] [address] [place] [address] Dr. Kayley Hatfield Hemoglobin (Bld) [Mass/Vol] 10.9 g/dL Critically low 12.0-16.0 [facility] Comment on above: Performed By: #### P RBC #### [facility] [address] [place] [address] Dr. Kayley Hatfield IG # 0.08 10e3/ul Critically high 0.00-0.03 [facility] Comment on above: Performed By: #### P RBC #### [facility] [address] [place] [address] Dr. Kayley Hatfield IG % 0.5 % Normal 0.0-0.5 [facility] Comment on above: Performed By: #### P RBC #### [facility] [address] [place] [address] Dr. Kayley Hatfield LYMPH # 1.2 103/ul Normal 1.2-3.8 [facility] Comment on above: Performed By: #### P RBC #### [facility] [address] [place] [address] Dr. Kayley Hatfield Lymphocytes/100 WBC (Bld) 7.4 % Critically low 20.5-60.0 [facility] Comment on above: Performed By: #### P RBC #### [facility] [address] [place] [address] Dr. Kayley Hatfield MANUAL DIFF REQ NO Normal [facility] Comment on above: Performed By: #### P RBC #### [facility] [address] [place] [address] Dr. Kayley Hatfield MCH (RBC) [Entitic mass] 27.9 pg Normal 26.7-34.0 [facility] Comment on above: Performed By: #### P RBC #### [facility] [address] [place] [address] Dr. Kayley Hatfield MCHC (RBC) [Mass/Vol] 30.8 g/dL Normal 29.9-35.2 [facility] Comment on above: Performed By: #### P RBC #### [facility] [address] [address] [address] Kayley Hatfield MCV (RBC) [Entitic vol] 90.5 fL Normal 81.0-99.0 [facility] Comment on above: Performed By: #### P RBC #### [facility] [address] [address] [address] Kayley Hatfield MONO # 1.5 103/ul Critically high 0.3-0.8 [facility] Comment on above: Performed By: #### P RBC #### [facility] [address] [place] [address] Dr. Kayley Hatfield Monocytes/100 WBC (Bld) 8.7 % Normal 1.7-12.0 [facility] Comment on above: Performed By: #### P RBC #### [facility] [address] [place] [address] Dr. Kayley Hatfield NEUT # 13.8 103/ul Critically high 1.4-6.5 [facility] Comment on above: Performed By: #### P RBC #### [facility] [address] [place] [address] Dr. Kayley Hatfield Neutrophils/100 WBC (Bld) 82.0 % Critically high 43.0-75.0 [facility] Comment on above: Performed By: #### P RBC #### [facility] [address] [address] [address] Kayley Hatfield Platelet mean volume (Bld) [Entitic vol] 8.9 fL Critically low 9.5-13.5 [facility] Comment on above: Performed By: #### P RBC #### [facility] [address] [place] [address] Dr. Kayley Hatfield PLT 1076 103/ul Critically high 150-450 [facility] Comment on above: Performed By: #### P RBC #### [facility] [address] [place] [address] Dr. Kayley Hatfield RBC 3.91 106/ul Critically low 4.20-5.40 [facility] Comment on above: Performed By: #### P RBC #### [facility] [address] [place], [place] [address] Dr. Kayley Hatfield WBC 16.8 103/ul Critically high 4.0-11.0 [facility] Comment on above: Performed By: #### P RBC #### [facility] [address] [place], [place] [address] HEAD WO CONon [...] by: MIGUE REYNOSO Date: 2022-04-25 14:59 Normal [facility] CTA CHEST WO W CONon 022 CTA [...] MIGUE REYNOSO Date: 2022-04-25 15:18 Normal [facility] Covid-19 PCR (CVDTB)on 04-08 SARS-CoV-2 (COVID-19) RNA ELBA+probe Ql (Unsp spec) Not detected Normal NOT DETECTED [facility] Comment on above: Result Comment: When [...] for this test is supported by the [employer] of [employer] Service's declaration that [...] used). Performed By: #### C VDTBH #### [facility] [address] [place] [address] Dr. Kayley Hatfield ER URINE PROFILEon 2 Bilirubin Ql (U) Negative Normal NEGATIVE [facility] Comment on above: Performed By: #### C VDTBH #### [facility] [address] [place] [address] Dr. Kayley Hatfield Clarity (U) CLEAR Normal CLEAR [facility] Comment on above: Performed By: #### C VDTBH #### [facility] [address] [place] [address] Dr. Kayley Hatfield Color (U) LT. YELLOW Normal YELLOW [facility] Comment on above: Performed By: #### C VDTBH #### [facility] [address] [place] [address] Dr. Kayley [place] A micrscopic examination will be performed if indicated. Normal [facility] Comment on above: Performed By: #### C VDTBH #### [facility] [address] [place] [address] Dr. Kayley Hatfield Glucose Ql (U) Negative Normal NEGATIVE [facility] Comment on above: Performed By: #### C VDTBH #### [facility] [address] [place] [address] Dr. Kayley Hatfield Hemoglobin Ql (U) TRACE-INTACT Abnormal NEGATIVE [facility] Comment on above: Performed By: #### C VDTBH #### [facility] [address] [place] [address] Dr. Kayley Hatfield Ketones Ql (U) Negative Normal NEGATIVE [facility] Comment on above: Performed By: #### C VDTBH #### [facility] [address] [place] [address] Dr. Kayley Hatfield LEUKOCYTES Negative Normal NEGATIVE [facility] Comment on above: Performed By: #### C VDTBH #### [facility] [address] [place] [address] Dr. Kayley Hatfield Nitrite Ql (U) Negative Normal NEGATIVE [facility] Comment on above: Performed By: #### C VDTBH #### [facility] [address] [place] [address] Dr. Kayley Hatfield pH (U) 8.0 [pH] Normal 5-9 [facility] Comment on above: Performed By: #### C VDTBH #### [facility] [address] [place] [address] Dr. Kayley Hatfield SPEC GRAVITY 1.010 Normal 1.005-<=1.025 [facility] Comment on above: Performed By: #### C VDTBH #### [facility] [address] [place] [address] Dr. Kayley Hatfield UA PROTEIN Negative Normal NEGATIVE/ TRACE [facility] Comment on above: Performed By: #### C VDTBH #### [facility] [address] [place] [address] Dr. Kayley Hatfield UR MICRO IND INDICATED Normal [facility] Comment on above: Performed By: #### C VDTBH #### [facility] [address] [place] [address] Dr. Kayley Hatfield Urobilinogen Qn (U) 0.2 {Lu'U}/dL Normal 0.2 - 1. 0 [facility] Comment on above: Performed By: #### C VDTBH #### [facility] [address] [place] [address] Dr. Kayley Hatfield LACTATE/LACTIC ACIDon 2021 Lactate [Moles/Vol] 1.1 mmol/L Normal 0.4-1.9 [facility] Comment on above: Performed By: #### P RTELEC #### [facility] [address] [place] [address] Dr. Kayley Hatfield PH VENOUS BLOODon 04-25-2022 PCO2 VENOUS 54.5 mmHg Critically high 40.0-52.0 [facility] Comment on above: Performed By: #### L DH #### [facility] [address] [place] [address] Dr. Kayley Hatfield pH VENOUS 7.385 Normal 7.330-7.430 [facility] Comment on above: Performed By: #### L DH #### [facility] [address] [place] [address] Dr. Kayley Hatfield POINT OF CARE GLUCOSEon 04-08 Glucose [Mass/Vol] 91 mg/dL Normal 74-106 [facility] Comment on above: Performed By: #### O BSCRN #### [facility] [address] [place] [address] Dr. Kayley Hatfield Glucose [Mass/Vol] 116 mg/dL Critically high 74-106 [facility] Comment on above: Performed By: #### O BSCRN #### [facility] [address] [place] [address] Dr. Kayley Hatfield PROF 14(COMP METB)on 022 Albumin [Mass/Vol] 2.7 g/dL Critically low 3.4-5.[address] [facility] Comment on above: Performed By: #### O BSCRN #### [facility] [address] [place] [address] Dr. Kayley Hatfield Albumin/Globulin [Mass ratio] 0.6 {ratio} Normal [facility] Comment on above: Performed By: #### O BSCRN #### [facility] [address] [place] [address] Dr. Kayley Hatfield ALP [Catalytic activity/Vol] 132 U/L Critically high 46-116 [facility] Comment on above: Performed By: #### O BSCRN #### [facility] [address] [place] [address] Dr. Kayley Hatfield ALT [Catalytic activity/Vol] 21 U/L Normal 14-59 [facility] Comment on above: Performed By: #### O BSCRN #### [facility] [address] [address] [address] Kayley Hatfield Anion gap [Moles/Vol] 8.1 mmol/L Normal [facility] Comment on above: Performed By: #### O BSCRN #### [facility] [address] [address] [address] Kalyey Hatfield AST [Catalytic activity/Vol] 23 U/L Normal 15-37 [facility] Comment on above: Performed By: #### O BSCRN #### [facility] [address] [address] [address] Kayley Hatfield Bilirubin [Mass/Vol] 0.3 mg/dL Normal 0.2-1.0 [facility] Comment on above: Performed By: #### O BSCRN #### [facility] [address] [place] [address] Dr. Kayley Hatfield Calcium [Mass/Vol] 9.4 mg/dL Normal 8.5-10.1 [facility] Comment on above: Performed By: #### O BSCRN #### [facility] [address] [address] [address] Kayley Hatfield Chloride [Moles/Vol] 100 mmol/L Normal 98-107 [facility] Comment on above: Performed By: #### O BSCRN #### [facility] [address] [place] [address] Dr. Kayley Hatfield CO2 [Moles/Vol] 31.8 mmol/L Normal 21.0-32.0 [facility] Comment on above: Performed By: #### O BSCRN #### [facility] [address] [place] [address] Dr. Kayley Hatfield Creatinine [Mass/Vol] 0.79 mg/dL Normal 0.55-1.02 [facility] Comment on above: Performed By: #### O BSCRN #### [facility] [address] [place] [address] Dr. Kayley Hatfield EGFR-AF MARTINIQUAIS >60 Normal >=60 [facility] Comment on above: Performed By: #### O BSCRN #### [facility] [address] [address] [address] Kayley Hatfield EGFR-NON AF MARTINIQUAIS >60 Normal >=60 [facility] Comment on above: Performed By: #### O BSCRN #### [facility] [address] [address] [address] Kayley Hatfield Globulin (S) [Mass/Vol] 4.2 g/dL Normal [facility] Comment on above: Performed By: #### O BSCRN #### [facility] [address] [address] [address] Kayley Hatfield Glucose [Mass/Vol] 134 mg/dL Critically high 74-106 [facility] Comment on above: Performed By: #### O BSCRN #### [facility] [address] [address] [address] Kayley Hatfield Potassium [Moles/Vol] 3.9 mmol/L Normal 3.5-5.1 [facility] Comment on above: Performed By: #### O BSCRN #### [facility] [address] [address] [address] Kayley Hatfield Protein [Mass/Vol] 6.9 g/dL Normal 6.4-8.2 [facility] Comment on above: Performed By: #### O BSCRN #### [facility] [address] [address] [address] Kayley Hatfield Sodium [Moles/Vol] 136 mmol/L Normal 136-145 [facility] Comment on above: Performed By: #### O BSCRN #### [facility] [address] [address] [address] Kayley Hatfield Urea nitrogen [Mass/Vol] 10.0 mg/dL Normal 7.0-18.0 [facility] Comment on above: Performed By: #### O BSCRN #### [facility] [address] [address] [address] Kayley Hatfield Urea nitrogen/Creatinine [Mass ratio] 12.7 mg/mg Normal [facility] Comment on above: Performed By: #### O BSCRN #### [facility] [address] [place] [address] Dr. Kayley Hatfield PROTIMEon 04-25-2022 INR Coag (PPP) [Relative time] 1.08 {INR} Normal [facility] Comment on above: Performed By: #### P RTELEC #### [facility] [address] [place] [address] Dr. Kayley Hatfield INR GUIDELINES SEE BELOW Normal [facility] Comment on above: Result Comment: JOAQUIM RED INR: 2.0 - 3.0 CONDITIONS NOT LISTED BELOW 2.5 - 3.5 FOR PROSTHETIC HEART VALVE REPLACEMENT 2.5 - 3.5 RECURRENT THROMBOSIS Performed By: #### P RTELEC #### [facility] [address] [place] [address] Dr. Kayley Hatfield PT Coag (PPP) [Time] 11.6 s Normal 9.0-11.6 [facility] Comment on above: Performed By: #### P RTELEC #### [facility] [address] [place] [place] [address] Dr. Kayley Hatfield PTTon 04-25-2022 aPTT Coag (Bld) [Time] 31.1 s Normal 22.3-36.2 [facility] Comment on above: Performed By: #### P RTELEC #### [facility] [address] [place] [address] Dr. Kayley Hatfield TROPONIN, HIGH SENSITIVITYon 04-25-2022 HSTROP 9.6 pg/mL Normal 4.0-51.3 [facility] Comment on above: Result Comment: CUT- OFF POINTS HAVE BEEN ESTABLISHED BASED ON THE FOURTH UNIVERSAL DEFINITIONS OF MYOCARDIAL INFARCTION. THE UPPER REFERENCE LIMIT (URL) OF TROPONIN, DEFINED THE 99TH PERCENTILE OF cTnI DISTRIBUTION IN A REFERENCE POPULATION, HAS BEEN CONFIRMED THE DECISION THRESHOLD FOR KS DIAGNOSIS. Performed By: #### P RTELEC #### [facility] [address] [place] [address] Dr. Kayley Hatfield TSHon 04-25-2022 TSH 1.431 uIU/mL Normal 0.358-3.740 [facility] Comment on above: Performed By: #### P RTELEC #### [facility] [address] [place] [address] Dr. Kayley Hatfield URINE MICROSCOPIC ONLYon BACTERIA NONE SEEN Normal NONE SEEN [facility] Comment on above: Performed By: #### C VDTBH #### [facility] [address] [place] [address] Dr. Kayley Hatfield Bacteria identified Cx Nom (U) NOT INDICATED Normal [facility] Comment on above: Performed By: #### C VDTBH #### [facility] [address] [place] [address] Dr. Kayley Hatfield CAST NONE SEEN Normal NONE SEEN [facility] Comment on above: Performed By: #### C VDTBH #### [facility] [address] [place] [address] Dr. Kayley Hatfield Crystals LM Nom (Urine sed) NONE SEEN Normal NONE SEEN [facility] Comment on above: Performed By: #### C VDTBH #### [facility] [address] [place] [address] Dr. Kayley Hatfield Epithelial cells LM Ql (Urine sed) FEW Abnormal NONE SEEN /RARE [facility] Comment on above: Performed By: #### C VDTBH #### [facility] [address] [place] [address] Dr. Kayley Hatfield MUCOUS NONE SEEN Normal NONE SEEN [facility] Comment on above: Performed By: #### C VDTBH #### [facility] [address] [place] [address] Dr. Kayley Hatfield RBC 2-5 Abnormal 0-2 [facility] Comment on above: Performed By: #### C VDTBH #### [facility] [address] [place] [address] Dr. Kayley Hatfield WBC NONE SEEN Normal NONE SEEN [facility] Comment on above: Performed By: #### C VDTBH #### [facility] [address] [place] [address] Dr. Kayley Hatfield IMMUNOFIXATION(KENNETH),PROTEIN ELEC(PE),FREon 03-31-2022 Albumin [Mass/Vol] 3.6 g/dL Normal 2.9-4.4 [facility] Comment on above: Performed By: #### B LDCX1 #### [facility] [address] [place] [address] Dr. Kayley Hatfield Albumin/Globulin [Mass ratio] 1.6 {ratio} Normal 0.7-1.7 [facility] Comment on above: Performed By: #### B LDCX1 #### [facility] [address] [place] [address] Dr. Kayley Hatfield Qahzj-9-Yvkjrain 0.3 g/dL Normal 0.0-0.4 [facility] Comment on above: Performed By: #### B LDCX1 #### [facility] [address] [place] [address] Dr. Kayley Hatfield Uzmmd-6-Jyhnbbdq 0.8 g/dL Normal 0.4-1.0 [facility] Comment on above: Performed By: #### B LDCX1 #### [facility] [address] [place] [address] Dr. Kayley Hatfield Beta Globulin 1.0 g/dL Normal 0.7-1.3 [facility] Comment on above: Performed By: #### B LDCX1 #### [facility] [address] [place] [address] Dr. Kayley Hatfield Free Hamilton Lt Chains,S 16.0 mg/L Normal 3.3-19.4 [facility] Comment on above: Performed By: #### B LDCX1 #### [facility] [address] [place] [address] Dr. Kayley Hatfield Free Lambda Lt Chains,S 10.1 mg/L Normal 5.7-26.3 [facility] Comment on above: Performed By: #### B LDCX1 #### [facility] [address] [place] [address] Dr. Kayley Hatfield Gamma Globulin 0.4 g/dL Normal 0.4-1.8 [facility] Comment on above: Performed By: #### B [id number] #### [facility] [address] [place] [address] Dr. Kayley Hatfield Globulin (S) [Mass/Vol] 2.4 g/dL Normal 2.2-3.9 [facility] Comment on above: Performed By: #### B LDCX1 #### [facility] [address] [place] [address] Dr. Kayley Hatfield Immunofixation Result, Serum Comment Normal [facility] Comment on above: Result Comment: No m onoclonality detected. Performed By: #### B LDCX1 #### [facility] [address] [address] [address] Kayley Hatfield Immunoglobulin A, Qn, Serum 128 mg/dL Normal 87-352 [facility] Comment on above: Performed By: #### B LDCX1 #### [facility] [address] [place] [address] Dr. Kayley Hatfield Immunoglobulin G, Qn, Serum 487 mg/dL Critically low 586-1602 [facility] Comment on above: Performed By: #### B LDCX1 #### [facility] [address] [address] [address] Kayley Hatfield Immunoglobulin M, Qn, Serum 38 mg/dL Normal 26-217 [facility] Comment on above: Performed By: #### B LDCX1 #### [facility] [address] [place] [address] Dr. Kayley Hatfield Hamilton/Lambda Ratio, S 1.58 Normal 0.26-1.65 [facility] Comment on above: Performed By: #### B LDCX1 #### [facility] [address] [address] [address] Kayley Hatfield M-Sandip Not Observed Normal Not Observed [facility] Comment on above: Performed By: #### B LDCX1 #### [facility] [address] [place] [address] Dr. Kayley Hatfield PDF . Normal [facility] Comment on above: Performed By: #### B LDCX1 #### [facility] [address] [place] [address] Dr. Kayley Hatfield Please note: Comment Normal [facility] Comment on above: Result Comment: Prot ein electrophoresis scan will follow via computer, mail, or astronomy instructor delivery. Performed By: #### B LDCX1 #### [facility] [address] [place] [address] Dr. Kayley Hatfield Protein [Mass/Vol] 6.0 g/dL Normal 6.0-8.5 [facility] Comment on above: Performed By: #### B LDCX1 #### [facility] [address] [place] [address] Dr. Kayley Hatfield CBC AUTO DIFFon 03-30-2022 BASO # 0.1 103/ul Normal 0.0-0.1 [facility] Comment on above: Performed By: #### P RBC #### [facility] [address] [place] [address] Dr. Kayley Hatfield Basophils/100 WBC (Bld) 0.4 % Normal 0.2-2.0 [facility] Comment on above: Performed By: #### P RBC #### [facility] [address] [place] [address] Dr. Kayley Hatfield EO # 0.2 103/ul Normal 0.0-0.7 [facility] Comment on above: Performed By: #### P RBC #### [facility] [address] [place] [address] Dr. Kayley Hatfield Eosinophils/100 WBC (Bld) 1.1 % Normal 0.9-7.0 [facility] Comment on above: Performed By: #### P RBC #### [facility] [address] [place] [address] Dr. Kayley Hatfield Erythrocyte distribution width (RBC) [Ratio] 0.0 % Critically low 11.0-15.0 [facility] Comment on above: Performed By: #### P RBC #### [facility] [address] [place] [address] Dr. Kayley Hatfield Hematocrit (Bld) [Volume fraction] 24.0 % Critically low 36.0-48.0 [facility] Comment on above: Performed By: #### P RBC #### [facility] [address] [place] [address] Dr. Kayley Hatfield Hemoglobin (Bld) [Mass/Vol] 7.2 g/dL Critically low 12.0-16.0 [facility] Comment on above: Performed By: #### P RBC #### [facility] [address] [address] [address] Kayley Hatfield IG # 0.10 10e3/ul Critically high 0.00-0.03 [facility] Comment on above: Performed By: #### P RBC #### [facility] [address] [address] [address] Kayley Hatfield IG % 0.6 % Critically high 0.0-0.5 [facility] Comment on above: Performed By: #### P RBC #### [facility] [address] [place] [address] Dr. Kayley Hatfield LYMPH # 1.5 103/ul Normal 1.2-3.8 [facility] Comment on above: Performed By: #### P RBC #### [facility] [address] [place] [address] Dr. Kayley Hatfield Lymphocytes/100 WBC (Bld) 9.0 % Critically low 20.5-60.0 [facility] Comment on above: Performed By: #### P RBC #### [facility] [address] [place] [address] Dr. Kayley Hatfield MANUAL DIFF REQ NO Normal [facility] Comment on above: Performed By: #### P RBC #### [facility] [address] [place] [address] Dr. Kayley Hatfield MCH (RBC) [Entitic mass] 27.3 pg Normal 26.7-34.0 [facility] Comment on above: Performed By: #### P RBC #### [facility] [address] [place] [address] Dr. Kayley Hatfield MCHC (RBC) [Mass/Vol] 30.0 g/dL Normal 29.9-35.2 [facility] Comment on above: Performed By: #### P RBC #### [facility] [address] [place] [address] Dr. Kayley Hatfield MCV (RBC) [Entitic vol] 90.9 fL Normal 81.0-99.0 [facility] Comment on above: Performed By: #### P RBC #### [facility] [address] [address] [address] Kayley Hatfield MONO # 2.3 103/ul Critically high 0.3-0.8 [facility] Comment on above: Performed By: #### P RBC #### [facility] [address] [address] [address] Kayley Hatfield Monocytes/100 WBC (Bld) 13.8 % Critically high 1.7-12.0 [facility] Comment on above: Performed By: #### P RBC #### [facility] [address] [address] [address] Kayley Hatfield NEUT # 12.7 103/ul Critically high 1.4-6.5 [facility] Comment on above: Performed By: #### P RBC #### [facility] [address] [place] [address] Dr. Kayley Hatfield Neutrophils/100 WBC (Bld) 75.1 % Critically high 43.0-75.0 [facility] Comment on above: Performed By: #### P RBC #### [facility] [address] [place] [address] Dr. Kayley Hatfield Platelet mean volume (Bld) [Entitic vol] 8.9 fL Critically low 9.5-13.5 [facility] Comment on above: Performed By: #### P RBC #### [facility] [address] [place] [address] Dr. Kayley Hatfield PLT 782 103/ul Critically high 150-450 [facility] Comment on above: Performed By: #### P RBC #### [facility] [address] [address] [address] Kayley Hatfield RBC 2.64 106/ul Critically low 4.20-5.40 [facility] Comment on above: Performed By: #### P RBC #### [facility] [address] [address] [address] Kayley Hatfield WBC 16.9 103/ul Critically high 4.0-11.0 [facility] Comment on above: Performed By: #### P RBC #### [facility] [address] [address] [address] Kayley Hatfield PRBC LEUKOREDUCEDon 03-30-20 ABO and Rh group Nom (Bld) Cross Match Result Compatible Unit Blood Type O Pos Unit Number [id number] Status Information Transfused Product ID Red Blood Cells Product Code [id number] Cross Match Result Compatible Unit Blood Type O Pos Unit Number [id number] Status Information Transfused Product ID Red Blood Cells Product Code [id number] Normal [facility] Comment on above: Performed By: #### P RBC #### [facility] [address] [place] [address] Dr. Kayley Hatfield PROF CHEM 8 (BAS METB)on Anion gap [Moles/Vol] 6.9 mmol/L Normal [facility] Comment on above: Performed By: #### P RBC #### [facility] [address] [place] [address] Dr. Kayley Hatfield Calcium [Mass/Vol] 8.7 mg/dL Normal 8.5-10.1 [facility] Comment on above: Performed By: #### P RBC #### [facility] [address] [place] [address] Dr. Kayley Hatfield Chloride [Moles/Vol] 101 mmol/L Normal 98-107 [facility] Comment on above: Performed By: #### P RBC #### [facility] [address] [place] [address] Dr. Kayley Hatfield CO2 [Moles/Vol] 33.3 mmol/L Critically high 21.0-32.0 [facility] Comment on above: Performed By: #### P RBC #### [facility] [address] [place] [address] Dr. Kayley Hatfield Creatinine [Mass/Vol] 0.83 mg/dL Normal 0.55-1.02 [facility] Comment on above: Performed By: #### P RBC #### [facility] [address] [place] [address] Dr. Kayley Hatfield EGFR-AF MARTINIQUAIS >60 Normal >=60 [facility] Comment on above: Performed By: #### P RBC #### [facility] [address] [address] [address] Kayley Hatfield EGFR-NON AF MARTINIQUAIS >60 Normal >=60 [facility] Comment on above: Performed By: #### P RBC #### [facility] [address] [address] [address] Kayley Hatfield Glucose [Mass/Vol] 94 mg/dL Normal 74-106 [facility] Comment on above: Performed By: #### P RBC #### [facility] [address] [address] [address] Kayley Hatfield Potassium [Moles/Vol] 4.2 mmol/L Normal 3.5-5.1 [facility] Comment on above: Performed By: #### P RBC #### [facility] [address] [address] [address] Kayley Hatfield Sodium [Moles/Vol] 137 mmol/L Normal 136-145 [facility] Comment on above: Performed By: #### P RBC #### [facility] [address] [address] [address] Kayley Hatfield Urea nitrogen [Mass/Vol] 15.0 mg/dL Normal 7.0-18.0 [facility] Comment on above: Performed By: #### P RBC #### [facility] [address] [address] [address] Kayley Hatfield Urea nitrogen/Creatinine [Mass ratio] 18.1 mg/mg Normal [facility] Comment on above: Performed By: #### P RBC #### [facility] [address] [address] [address] Kayley Hatfield PROTEIN ELECTROPHERESISon Albumin [Mass/Vol] 3.4 g/dL Normal 2.9-4.4 [facility] Comment on above: Performed By: #### P RTELEC #### [facility] [address] [address] [address] Kayley Hatfield Albumin/Globulin [Mass ratio] 1.3 {ratio} Normal 0.7-1.7 [facility] Comment on above: Performed By: #### P RTELEC #### [facility] [address] [address] [address] Kayley Hatfield Viqih-7-Hlrdixuz 0.3 g/dL Normal 0.0-0.4 [facility] Comment on above: Performed By: #### P RTELEC #### [facility] [address] [address] [address] Kayley Hatfield Oligl-6-Yuffjuco 0.8 g/dL Normal 0.4-1.0 [facility] Comment on above: Performed By: #### P RTELEC #### [facility] [address] [place] [address] Dr. Kayley Hatfield Beta Globulin 1.0 g/dL Normal 0.7-1.3 [facility] Comment on above: Performed By: #### P RTELEC #### [facility] [address] [place] [address] Dr. Kayley Hatfield Gamma Globulin 0.5 g/dL Normal 0.4-1.8 [facility] Comment on above: Performed By: #### P RTELEC #### [facility] [address] [place] [address] Dr. Kayley Hatfield Globulin (S) [Mass/Vol] 2.6 g/dL Normal 2.2-3.9 [facility] Comment on above: Performed By: #### P RTELEC #### [facility] [address] [place] [address] Dr. Kayley Hatfield M-Sandip Not Observed Normal Not Observed [facility] Comment on above: Performed By: #### P RTELEC #### [facility] [address] [place] [address] Dr. Kayley Hatfield PDF . Normal [facility] Comment on above: Performed By: #### P RTELEC #### [facility] [address] [place] [address] Dr. Kayley Hatfield Please note: Comment Normal [facility] Comment on above: Result Comment: Prot ein electrophoresis scan will follow via computer, mail, or astronomy instructor delivery. Performed By: #### P RTELEC #### [facility] [address] [address] [address] Kayley Hatfield Protein [Mass/Vol] 6.0 g/dL Normal 6.0-8.5 [facility] Comment on above: Performed By: #### P RTELEC #### [facility] [address] [address] [address] Kayley Hatfield XR CHEST 1 Von [...] TYSHAWN MOORE Date: 2022-03-30 06:17 Normal [facility] CBC W MANUAL DIFFon 03-29-20 22 ANISOCYTOSIS 2+ Normal [facility] Comment on above: Performed By: #### C VDTBH #### [facility] [address] [address] [address] Kayley Hatfield ATYPICAL LYMPH # Normal [facility] Comment on above: Performed By: #### C VDTBH #### [facility] [address] [address] [address] Kayley Hatfield ATYPICAL LYMPH % Normal [facility] Comment on above: Performed By: #### C VDTBH #### [facility] [address] [address] [address] Kayley Hatfield BAND # 0.0 103/ul Normal 0.0-0.3 [facility] Comment on above: Performed By: #### C VDTBH #### [facility] [address] [address] [address] Kayley Hatfield BAND % 0 % Normal 0-5 [facility] Comment on above: Performed By: #### C VDTBH #### [facility] [address] [address] [address] Kayley Hatfield BASOM # 0.59 103/ul Critically high 0.00-0.10 [facility] Comment on above: Performed By: #### C VDTBH #### [facility] [address] [address] [address] Kayley Hatfield BASOM % 3.0 % Critically high 0.2-2.0 [facility] Comment on above: Performed By: #### C VDTBH #### [facility] [address] [place] [address] Dr. Kayley Hatfield BLAST # Normal [facility] Comment on above: Performed By: #### C VDTBH #### [facility] [address] [place] [address] Dr. Kayley Hatfield BLAST % Normal [facility] Comment on above: Performed By: #### C VDTBH #### [facility] [address] [place] [address] Dr. Kayley Hatfield CORRECTED WBC Normal 4.0-11.0 [facility] Comment on above: Performed By: #### C VDTBH #### [facility] [address] [place] [address] Dr. Kayley Hatfield EOS # 0.40 103/ul Normal 0.00-0.70 [facility] Comment on above: Performed By: #### C VDTBH #### [facility] [address] [address] [address] Kayley Hatfield EOS% 2.0 % Normal 0.9-7.0 [facility] Comment on above: Performed By: #### C VDTBH #### [facility] [address] [place] [address] Dr. Kayley Hatfield HCT 31.1 % Critically low 36.0-48.0 [facility] Comment on above: Performed By: #### C VDTBH #### [facility] [address] [address] [address] Kayley Hatfield HGB 9.7 g/dl Critically low 12.0-16.0 [facility] Comment on above: Performed By: #### C VDTBH #### [facility] [address] [address] [address] Kayley Hatfield HYPOCHROMASIA 1+ Normal [facility] Comment on above: Performed By: #### C VDTBH #### [facility] [address] [address] [address] Kayley Hatfield LYMPHM # 4.75 103/ul Critically high 1.20-3.80 [facility] Comment on above: Performed By: #### C VDTBH #### [facility] [address] [place] [address] Dr. Kayley Hatfield LYMPHM% 24.0 % Normal 20.5-60.0 [facility] Comment on above: Performed By: #### C VDTBH #### [facility] [address] [address] [address] Kayley Hatfield MCH 27.0 pg Normal 26.7-34.0 [facility] Comment on above: Performed By: #### C VDTBH #### [facility] [address] [place] [address] Dr. Kayley Hatfield MCHC 31.2 g/dl Normal 29.9-35.2 [facility] Comment on above: Performed By: #### C VDTBH #### [facility] [address] [address] [address] Kayley Hatfield MCV 86.6 fL Normal 81.0-99.0 [facility] Comment on above: Performed By: #### C VDTBH #### [facility] [address] [place] [address] Dr. Kayley Hatfield METAMYELOCYTE # Normal [facility] Comment on above: Performed By: #### C VDTBH #### [facility] [address] [place], [place] [id number] Dr. Kayley Hatfield METAMYELOCYTE % Normal [facility] Comment on above: Performed By: #### C VDTBH #### [facility] [address] [place] [address] Dr. Kayley Hatfield MONOM# 0.59 103/ul Normal 0.30-0.80 [facility] Comment on above: Performed By: #### C VDTBH #### [facility] [address] [place] [address] Dr. Kayley Hatfield MONOM% 3.0 % Normal 1.7-12.0 [facility] Comment on above: Performed By: #### C VDTBH #### [facility] [address] [place] [address] Dr. Kayley Hatfield MPV 8.4 fL Critically low 9.5-13.5 [facility] Comment on above: Performed By: #### C VDTBH #### [facility] [address] [place] [address] Dr. Kayley Hatfield MYELOCYTE # Normal [facility] Comment on above: Performed By: #### C VDTBH #### [facility] [address] [place] [address] Dr. Kayley Hatfield MYELOCYTE % Normal [facility] Comment on above: Performed By: #### C VDTBH #### [facility] [address] [place] [address] Dr. Kayley Hatfield NRBC Normal [facility] Comment on above: Performed By: #### C VDTBH #### [facility] [address] [place] [address] Dr. Kayley Hatfield OVALOCYTES SLIGHT Normal [facility] Comment on above: Performed By: #### C VDTBH #### [facility] [address] [place] [address] Dr. Kayley Hatfield PLT 950 103/ul Critically high 150-450 [facility] Comment on above: Performed By: #### C VDTBH #### [facility] [address] [place] [address] Dr. Kayley Hatfield RBC 3.59 106/ul Critically low 4.20-5.40 [facility] Comment on above: Performed By: #### C VDTBH #### [facility] [address] [place] [address] Dr. Kayley Hatfield RDW 26.6 % Critically high 11.0-15.0 [facility] Comment on above: Performed By: #### C VDTBH #### [facility] [address] [place] [address] Dr. Kayley Hatfield SEG # 13.46 103/ul Critically high 1.40-6.50 [facility] Comment on above: Performed By: #### C VDTBH #### [facility] [address] [place] [address] Dr. Kayley Hatfield SEG % 68.0 % Normal 43.0-75.0 [facility] Comment on above: Performed By: #### C VDTBH #### [facility] [address] [place] [address] Dr. Kayley Hatfield WBC 19.8 103/ul Critically high 4.0-11.0 [facility] Comment on above: Performed By: #### C VDTBH #### [facility] [address] [place] [address] Dr. Kayley Hatfield PROF CHEM 8 (BAS METB)on Anion gap [Moles/Vol] 8.6 mmol/L Normal [facility] Comment on above: Performed By: #### L #### [facility] [address] [place] [address] Dr. Kayley Hatfield Calcium [Mass/Vol] 8.9 mg/dL Normal 8.5-10.1 [facility] Comment on above: Performed By: #### L DH #### [facility] [address] [place] [address] Dr. Kayley Hatfeild Chloride [Moles/Vol] 102 mmol/L Normal 98-107 [facility] Comment on above: Performed By: #### L DH #### [facility] [address] [place] [address] Dr. Kayley Hatfield CO2 [Moles/Vol] 34.3 mmol/L Critically high 21.0-32.0 [facility] Comment on above: Performed By: #### L DH #### [facility] [address] [place] [address] Dr. Kayley Hatfield Creatinine [Mass/Vol] 0.86 mg/dL Normal 0.55-1.02 [facility] Comment on above: Performed By: #### L DH #### [facility] [address] [address] [address] Kayley Hatfield EGFR-AF MARTINIQUAIS >60 Normal >=60 [facility] Comment on above: Performed By: #### L DH #### [facility] [address] [place] [address] Dr. Kayley Hatfield EGFR-NON AF MARTINIQUAIS >60 Normal >=60 [facility] Comment on above: Performed By: #### L DH #### [facility] [address] [place] [address] Dr. Kayley Hatfield Glucose [Mass/Vol] 102 mg/dL Normal 74-106 [facility] Comment on above: Performed By: #### L DH #### [facility] [address] [place] [address] Dr. Kayley Hatfield Potassium [Moles/Vol] 3.9 mmol/L Normal 3.5-5.1 [facility] Comment on above: Performed By: #### L DH #### [facility] [address] [place] [address] Dr. Kayley Hatfield Sodium [Moles/Vol] 141 mmol/L Normal 136-145 [facility] Comment on above: Performed By: #### L DH #### [facility] [address] [place] [address] Dr. Kayley Hatfield Urea nitrogen [Mass/Vol] 20.0 mg/dL Critically high 7.0-18.0 [facility] Comment on above: Performed By: #### L DH #### [facility] [address] [place] [address] Dr. Kayley Hatfield Urea nitrogen/Creatinine [Mass ratio] 23.3 mg/mg Normal [facility] Comment on above: Performed By: #### L #### [facility] [address] [address] [address] Kayley Hatfield XR CHEST 1 Von [...] MIGUE REYNOSO Date: 2022-03-29 13:26 Normal [facility] XR CHEST 1 V EXAMINATION: XR [...] MIGUE REYNOSO Date: 2022-03-29 11:37 Normal [facility] XR CHEST 1 V EXAMINATION: XR [...] MIGUE REYNOSO Date: 2022-03-29 07:32 Normal [facility] XR CHEST 1 V EXAM: XR [...] ASAEL ANAND Date: 2022-03-28 22:40 Normal [facility] CBC W MANUAL DIFFon 03-28-20 22 ANISOCYTOSIS 3+ Normal [facility] Comment on above: Performed By: #### C ALONZO #### [facility] [address] [address] [address] Kayley Hatfield ATYPICAL LYMPH # Normal [facility] Comment on above: Performed By: #### C ALONZO #### [facility] [address] [address] [address] Kayley Hatfield ATYPICAL LYMPH % Normal [facility] Comment on above: Performed By: #### C BCMAN #### [facility] [address] [address] [address] Kayley Hatfield BAND # 0.3 103/ul Normal 0.0-0.3 [facility] Comment on above: Performed By: #### C ALONZO #### [facility] [address] [address] [address] Kayley Hatfield BAND % 2 % Normal 0-5 [facility] Comment on above: Performed By: #### C ALONZO #### [facility] [address] [address] [address] Kayley Hatfield BASOM # 0.00 103/ul Normal 0.00-0.10 [facility] Comment on above: Performed By: #### C BCKATHY #### [facility] [address] [address] [address] Kayley Hatfield BASOM % 0.0 % Critically low 0.2-2.0 [facility] Comment on above: Performed By: #### C BCMAN #### [facility] [address] [address] [address] Kayley Hatfield BLAST # Normal [facility] Comment on above: Performed By: #### C ALONZO #### [facility] [address] [place] [address] Dr. Kayley Hatfield BLAST % Normal [facility] Comment on above: Performed By: #### C ALONZO #### [facility] [address] [place] [address] Dr. Kayley Hatfield CORRECTED WBC Normal 4.0-11.0 [facility] Comment on above: Performed By: #### C ALONZO #### [facility] [address] [place] [address] Dr. Kayley Hatfield EOS # 0.00 103/ul Normal 0.00-0.70 [facility] Comment on above: Performed By: #### C ALONZO #### [facility] [address] [place] [address] Dr. Kayley Hatfield EOS% 0.0 % Critically low 0.9-7.0 [facility] Comment on above: Performed By: #### C BCKATHY #### [facility] [address] [place] [address] Dr. Kayley Hatfield HCT 23.6 % Critically low 36.0-48.0 [facility] Comment on above: Performed By: #### C ALONZO #### [facility] [address] [place] [address] Dr. Kayley Hatfield HGB 6.8 g/dl Critically low 12.0-16.0 [facility] Comment on above: Performed By: #### C ALONZO #### [facility] [address] [address] [address] Kayley Hatfield HYPOCHROMASIA 3+ Normal [facility] Comment on above: Performed By: #### C ALONZO #### [facility] [address] [address] [address] Kayley Hatfield LYMPHM # 1.17 103/ul Critically low 1.20-3.80 [facility] Comment on above: Performed By: #### C ALONZO #### [facility] [address] [place] [address] Dr. Kayley Hatfield LYMPHM% 7.0 % Critically low 20.5-60.0 [facility] Comment on above: Performed By: #### C ALONZO #### [facility] [address] [place] [address] Dr. Kayley Hatfield MCH 24.6 pg Critically low 26.7-34.0 [facility] Comment on above: Performed By: #### Ryley ROSADO #### [facility] [address] [place] [address] Dr. Kayley Hatfield MCHC 28.8 g/dl Critically low 29.9-35.2 [facility] Comment on above: Performed By: #### Ryley ROSADO #### [facility] [address] [place] [address] Dr. Kayley Hatfield MCV 85.5 fL Normal 81.0-99.0 [facility] Comment on above: Performed By: #### Ryley ROSADO #### [facility] [address] [place] [address] Dr. Kayley Hatfield METAMYELOCYTE # Normal [facility] Comment on above: Performed By: #### C ALONZO #### [facility] [address] [place] [address] Dr. Kayley Hatfield METAMYELOCYTE % Normal [facility] Comment on above: Performed By: #### Ryley ROSADO #### [facility] [address] [place] [address] Dr. Kayley Hatfield MONOM# 0.50 103/ul Normal 0.30-0.80 [facility] Comment on above: Performed By: #### C ALONZO #### [facility] [address] [address] [address] Kayley Hatfield MONOM% 3.0 % Normal 1.7-12.0 [facility] Comment on above: Performed By: #### C ALONZO #### [facility] [address] [address] [address] Kayley Hatfield MPV 8.6 fL Critically low 9.5-13.5 [facility] Comment on above: Performed By: #### C ALONZO #### [facility] [address] [address] [address] Kayley Hatfield MYELOCYTE # Normal [facility] Comment on above: Performed By: #### C ALONZO #### [facility] [address] [address] [address] Kayley Hatfield MYELOCYTE % Normal [facility] Comment on above: Performed By: #### C ALONZO #### [facility] [address] [address] [address] Kayley Hatfield NRBC Normal [facility] Comment on above: Performed By: #### C ALONZO #### [facility] [address] [address] [address] Kayley Hatfield OVALOCYTES SLIGHT Normal [facility] Comment on above: Performed By: #### C ALONZO #### [facility] [address] [address] [address] Kayley Hatfield PLT 1384 103/ul Critically high 150-450 [facility] Comment on above: Performed By: #### C ALONZO #### [facility] [address] [address] [address] Kayley Hatfield RBC 2.76 106/ul Critically low 4.20-5.40 [facility] Comment on above: Performed By: #### C ALONZO #### [facility] [address] [address] [address] Kayley Hatfield RDW 0.0 % Critically low 11.0-15.0 [facility] Comment on above: Performed By: #### C ALONZO #### [facility] [address] [place], [place] [address] Dr. Kayley Hatfield SEG # 14.70 103/ul Critically high 1.40-6.50 [facility] Comment on above: Performed By: #### C BCMAN #### [facility] [address] [place], [place] [address] Dr. Kayley Hatfield SEG % 88.0 % Critically high 43.0-75.0 [facility] Comment on above: Performed By: #### C ABBYKATHY #### [facility] [address] [id number] [address] Kayley Hatfield WBC 16.7 103/ul Critically high 4.0-11.0 [facility] Comment on above: Performed By: #### C ABBYKATHY #### [facility] [address] [address] [address] Kayley Hatfield CRPon 03-28-2022 CRP [Mass/Vol] mg/L Normal <=1.0 [facility] Comment on above: Performed By: #### H GBHCT #### [facility] [address] [address] [address] Kayley Hatfield [facility] SARS-CoV-2 (COVID-19) RNA ELBA+probe Ql (Unsp spec) Not detected Normal NOT DETECTED [facility] Comment on above: Result Comment: When [...] for this test is supported by the [employer] Supervisor of Health and Human Service's declaration that [...] used). Performed By: #### P RBC #### [facility] [address] [place] [address] Dr. Kayley DOBSON URINE PROFILEon 2 Bilirubin Ql (U) Negative Normal NEGATIVE [facility] Comment on above: Performed By: #### P RBC #### [facility] [address] [place] [address] Dr. Kayley Hatfield Clarity (U) CLEAR Normal CLEAR [facility] Comment on above: Performed By: #### P RBC #### [facility] [address] [place] [address] Dr. Kayley Hatfield Color (U) LT. YELLOW Normal YELLOW [facility] Comment on above: Performed By: #### P RBC #### [facility] [address] [place] [address] Dr. Kayley [place] A micrscopic examination will be performed if indicated. Normal [facility] Comment on above: Performed By: #### P RBC #### [facility] [address] [place] [address] Dr. Kayley Hatfield Glucose Ql (U) Negative Normal NEGATIVE [facility] Comment on above: Performed By: #### P RBC #### [facility] [address] [place] [address] Dr. Kayley Hatfield Hemoglobin Ql (U) Negative Normal NEGATIVE [facility] Comment on above: Performed By: #### P RBC #### [facility] [address] [place] [address] Dr. Kayley Hatfield Ketones Ql (U) Negative Normal NEGATIVE [facility] Comment on above: Performed By: #### P RBC #### [facility] [address] [place] [address] Dr. Kayley Hatfield LEUKOCYTES Negative Normal NEGATIVE [facility] Comment on above: Performed By: #### P RBC #### [facility] [address] [place] [address] Dr. Kayley Hatfield Nitrite Ql (U) Negative Normal NEGATIVE [facility] Comment on above: Performed By: #### P RBC #### [facility] [address] [place] [address] Dr. Kayley Hatfield pH (U) 6.0 [pH] Normal 5-9 [facility] Comment on above: Performed By: #### P RBC #### [facility] [address] [address] [address] Kayley Hatfield SPEC GRAVITY <=1.005 Abnormal 1.005-<=1.025 [facility] Comment on above: Performed By: #### P RBC #### [facility] [address] [place] [address] Dr. Kayley Hatfield UA PROTEIN Negative Normal NEGATIVE/ TRACE [facility] Comment on above: Performed By: #### P RBC #### [facility] [address] [place] [address] Dr. Kayley Hatfield UR MICRO IND NOT INDICATED Normal [facility] Comment on above: Performed By: #### P RBC #### [facility] [address] [place] [address] Dr. Kayley Hatfield Urobilinogen Qn (U) 0.2 {Lu'U}/dL Normal 0.2 - 1. 0 [facility] Comment on above: Performed By: #### P RBC #### [facility] [address] [place] [address] Dr. Kayley Hatfield FERRITINon 03-28-2022 Ferritin [Mass/Vol] 61.0 ng/mL Normal 8.0-252.0 [facility] Comment on above: Performed By: #### P RBC #### [facility] [address] [place] [address] Dr. Kayley Hatfield GLYCOHEMOGLOBIN A1Con 2021 ADA RECOMMENDATION SEE BELOW Normal [facility] Comment on above: Result Comment: ADA RECOMMENDED LIMIT 4.0 - 6.0 ADA THERAPEUTIC TARGET < 7.0 ACTION SUGGESTED > 7.0 Performed By: #### P RBC #### [facility] [address] [place] [address] Dr. Kayley Hatfield Glucose [Mass/Vol] 114 mg/dL Normal [facility] Comment on above: Performed By: #### P RBC #### [facility] [address] [place] [address] Dr. Kayley Hatfield HbA1c (Bld) [Mass fraction] 5.6 % Normal 4.5-6.2 [facility] Comment on above: Performed By: #### P RBC #### [facility] [address] [place] [address] Dr. Kayley Hatfield IRONon 03-28-2022 Iron [Mass/Vol] 37.0 ug/dL Critically low 50.0-170.0 [facility] Comment on above: Performed By: #### P RBC #### [facility] [address] [place] [address] Dr. Kayley Hatfield LDHon 03-28-2022 LDH 174 U/L Normal 81-234 [facility] Comment on above: Performed By: #### L DH #### [facility] [address] [place] [address] Dr. Kayley Hatfield LIPID PROFILEon 03-28-2022 CHOL-HDL RATIO NORM SEE BELOW Normal [facility] Comment on above: Result Comment: 3.3 - 4.4 LOW RISK 4.4 - 7.1 AVERAGE RISK 7.1 - 11.0 MODERATE RISK >11.0 HIGH RISK Performed By: #### P RBC #### [facility] [address] [place] [address] Dr. Kayley Hatfield Cholesterol [Mass/Vol] 193 mg/dL Normal <=200 [facility] Comment on above: Performed By: #### P RBC #### [facility] [address] [place] [address] Dr. Kayley Hatfield Cholesterol in HDL [Mass/Vol] 95 mg/dL Critically high 40-60 [facility] Comment on above: Performed By: #### P RBC #### [facility] [address] [place] [address] Dr. Kayley Hatfield Cholesterol in LDL [Mass/Vol] 74.8 mg/dL Normal [facility] Comment on above: Performed By: #### P RBC #### [facility] [address] [place] [address] Dr. Kayley Hatfield Cholesterol.total/Cho lesterol in HDL [Mass ratio] 2.0 {ratio} Normal [facility] Comment on above: Performed By: #### P RBC #### [facility] [address] [address] [address] Kayley Hatfield HDL NORMAL > or = 60 mg/dl - LO W CARDIOVASCULAR RISK <40 mg/dl - HIGH CARDIOVASCULAR RISK Normal [facility] Comment on above: Performed By: #### P RBC #### [facility] [address] [address] [address] Kayley Hatfield LDL CALC NORMAL SEE BELOW Normal [facility] Comment on above: Result Comment: <100 mg/dl OPTIMAL 100 - 129 mg/dl NEAR OR ABOVE OPTIMAL 130 - 159 mg/dl BORDERLINE HIGH 160 - 189 mg/dl HIGH >190 mg/dl VERY HIGH Performed By: #### P RBC #### [facility] [address] [address] [address] Kayley Hatfield Triglyceride [Mass/Vol] 116 mg/dL Normal <=150 [facility] Comment on above: Performed By: #### P RBC #### [facility] [address] [address] [address] Kayley Hatfield VLDL CALC 23.2 mg/dL Normal [facility] Comment on above: Performed By: #### P RBC #### [facility] [address] [address] [address] Kayley Hatfield LIVER PROFILEon 03-28-2022 Albumin [Mass/Vol] 3.2 g/dL Critically low 3.4-5.0 [facility] Comment on above: Performed By: #### P RBC #### [facility] [address] [address] [address] Kayley Hatfield Albumin/Globulin [Mass ratio] 1.0 {ratio} Normal [facility] Comment on above: Performed By: #### P RBC #### [facility] [address] [address] [address] Kayley Hatfield ALP [Catalytic activity/Vol] 56 U/L Normal 46-116 [facility] Comment on above: Performed By: #### P RBC #### [facility] [address] [address] [address] Kayley Hatfield ALT [Catalytic activity/Vol] 32 U/L Normal 14-59 [facility] Comment on above: Performed By: #### P RBC #### [facility] [address] [place] [address] Dr. Kayley Hatfield AST [Catalytic activity/Vol] 18 U/L Normal 15-37 [facility] Comment on above: Performed By: #### P RBC #### [facility] [address] [place] [address] Dr. Kayley Hatfield BILI, CONJUGATED 0.1 mg/dL Normal 0.0-0.2 [facility] Comment on above: Performed By: #### P RBC #### [facility] [address] [place] [address] Dr. Kayley Hatfield Bilirubin [Mass/Vol] 0.2 mg/dL Normal 0.2-1.0 [facility] Comment on above: Performed By: #### P RBC #### [facility] [address] [place] [address] Dr. Kayley Hatfield Globulin (S) [Mass/Vol] 3.1 g/dL Normal [facility] Comment on above: Performed By: #### P RBC #### [facility] [address] [place] [address] Dr. Kayley Hatfield Protein [Mass/Vol] 6.3 g/dL Critically low 6.4-8.2 [facility] Comment on above: Performed By: #### P RBC #### [facility] [address] [place] [address] Dr. Kayley Hatfield MAGNESIUMon 03-28-2022 Magnesium [Mass/Vol] 1.8 mg/dL Normal 1.8-2.4 [facility] Comment on above: Performed By: #### H GBHCT #### [facility] [address] [place] [address] Dr. Kayley Hatfield PHOSPHORUSon 03-28-2022 Phosphate [Mass/Vol] 4.4 mg/dL Normal 2.6-4.7 [facility] Comment on above: Performed By: #### O BSCRN #### [facility] [address] [address] [address] Kayley Hatfield PROF CHEM 8 (BAS METB)on Anion gap [Moles/Vol] 10.1 mmol/L Normal [facility] Comment on above: Performed By: #### P RBC #### [facility] [address] [address] [address] Kayley Hatfield Calcium [Mass/Vol] 9.1 mg/dL Normal 8.5-10.1 [facility] Comment on above: Performed By: #### P RBC #### [facility] [address] [address] [address] Kayley Hatfield Chloride [Moles/Vol] 101 mmol/L Normal 98-107 [facility] Comment on above: Performed By: #### P RBC #### [facility] [address] [place] [address] Dr. Kayley Hatfield CO2 [Moles/Vol] 32.6 mmol/L Critically high 21.0-32.0 [facility] Comment on above: Performed By: #### P RBC #### [facility] [address] [place] [address] Dr. Kayley Hatfield Creatinine [Mass/Vol] 0.90 mg/dL Normal 0.55-1.02 [facility] Comment on above: Performed By: #### P RBC #### [facility] [address] [place] [address] Dr. Kayley Hatfield EGFR-AF MARTINIQUAIS >60 Normal >=60 [facility] Comment on above: Performed By: #### P RBC #### [facility] [address] [address] [address] Kayley Hatfield EGFR-NON AF MARTINIQUAIS >60 Normal >=60 [facility] Comment on above: Performed By: #### P RBC #### [facility] [address] [place] [address] Dr. Kayley Hatfield Glucose [Mass/Vol] 161 mg/dL Critically high 74-106 [facility] Comment on above: Performed By: #### P RBC #### [facility] [address] [address] [address] Kayley Hatfield Potassium [Moles/Vol] 4.7 mmol/L Normal 3.5-5.1 [facility] Comment on above: Performed By: #### P RBC #### [facility] [address] [address] [address] Kayley Hatfield Sodium [Moles/Vol] 139 mmol/L Normal 136-145 [facility] Comment on above: Performed By: #### P RBC #### [facility] [address] [address] [address] Kayley Hatfield Urea nitrogen [Mass/Vol] 15.0 mg/dL Normal 7.0-18.0 [facility] Comment on above: Performed By: #### P RBC #### [facility] [address] [address] [address] Kayley Hatfield Urea nitrogen/Creatinine [Mass ratio] 16.7 mg/mg Normal [facility] Comment on above: Performed By: #### P RBC #### [facility] [address] [address] [address] Kayley Hatfield RETICULOCYTEon 03-28-2022 RETIC 4.65 % Critically high 0.60-3.10 [facility] Comment on above: Performed By: #### L DH #### [facility] [address] [address] [address] Kayley Hatfield SED RATE WESTERGRENon 2021 SED RATE 12 mm/hr Normal <=30 [facility] Comment on above: Performed By: #### P RTELEC #### [facility] [address] [address] [address] Kayley Hatfield TSHon 03-28-2022 TSH 0.922 uIU/mL Normal 0.358-3.740 [facility] Comment on above: Performed By: #### P RBC #### [facility] [address] [address] [address] Kayley Hatfield TYPE AND SCREENon 03-28-2022 TYPE AND SCREEN Negative Normal [facility] Comment on above: Performed By: #### C VDTBH #### [facility] [address] [place] [address] Dr. Kayley Hatfield VIT B12 AND FOLATEon 022 Cobalamin (Vitamin B12) [Mass/Vol] 490.0 pg/mL Normal 193.0-986.0 [facility] Comment on above: Performed By: #### L DH #### [facility] [address] [place] [address] Dr. Kayley Hatfield FOLATE 14.00 ng/mL Normal 8.60-58.90 [facility] Comment on above: Performed By: #### L DH #### [facility] [address] [place] [address] Dr. Kayley Hatfield VITAMIN D 25 OHon 03-28-2022 VIT D 25-OH 41.5 ng/mL Normal [facility] Comment on above: Performed By: #### O BSCRN #### [facility] [address] [place] [address] Dr. Kayley Hatfield VIT D RANGES SEE BELOW Normal [facility] Comment on above: Result Comment: <20 ng/mL Vit D deficient 20 - <30 ng/mL Vit D insufficient 30 - 100 ng/mL Vit D sufficient >100 ng/mL Potential Toxicity Performed By: #### O BSCRN #### [facility] [address] [place] [address] Dr. Kayley Hatfield XR CHEST 1 Von [...] STEPHEN ARAIZA Date: 2022-03-28 21:37 Normal [facility] BASIC METABOLIC PANELon 09-0 Calcium [Mass/Vol] 8.9 mg/dL Normal 8.6-10.3 [facility] Comment on above: Order Comment: No: D o not add to previous draw Performed By: #### 3 5200, 81579, 58518, 54042 #### [facility] [address] [place] [address], [facility] Chloride [Moles/Vol] 97 mmol/L Low 98-107 [facility] Comment on above: Order Comment: No: D o not add to previous draw Performed By: #### 3 5200, 08542, 33322, 24439 #### [facility] [address] [place] [address], [place] CO2 [Moles/Vol] 35 mmol/L High 21-31 [facility] Comment on above: Order Comment: No: D o not add to previous draw Performed By: #### 3 5200, 72728, 25397, 18060 #### [facility] [address] [place] [address], [place] Creatinine [Mass/Vol] 0.65 mg/dL Normal 0.60-1.20 [facility] Comment on above: Order Comment: No: D o not add to previous draw Performed By: #### 3 5200, 88880, 15503, 63882 #### [facility] [address] [place] [address], [place] GFR/1.73 sq M.predicted among non-blacks MDRD (S/P/Bld) [Vol rate/Area] mL/min/{1.73_m2} Normal >60 [facility] Comment on above: Order Comment: No: D o not add to previous draw Result Comment: [facility]'s estimated glomerular filtration rate (eGFR) will [...] of individuals. Performed By: #### 3 5200, 91145, 35109, 21552 #### [facility] [address] [place] [address], [place] Glucose [Mass/Vol] 161 mg/dL High 70-100 [facility] Comment on above: Order Comment: No: D o not add to previous draw Performed By: #### 3 5200, 56254, 81481, 04960 #### [facility] [address] [place] [address], [place] Potassium [Moles/Vol] 3.9 mmol/L Normal 3.5-5.1 [facility] Comment on above: Order Comment: No: D o not add to previous draw Performed By: #### 3 5200, 17098, 63678, 10258 #### [facility] [address] [place] [address], [place] Sodium [Moles/Vol] 136 mmol/L Normal 136-145 [facility] Comment on above: Order Comment: No: D o not add to previous draw Performed By: #### 3 5200, 31214, 05386, 26468 #### [facility] [address] [place] [address], [place] Urea nitrogen [Mass/Vol] 16 mg/dL Normal 7-25 [facility] Comment on above: Order Comment: No: D o not add to previous draw Performed By: #### 3 5200, 05189, 35909, 30437 #### [facility] [address] [place] [address], [facility] CBC COMPLETE BLOOD COUNTon 0 03-15-2022 Hematocrit (Bld) [Volume fraction] 28.2 % Low 36.0-45.0 [facility] Comment on above: Order Comment: No: D o not add to previous draw Performed By: #### 3 5200 #### [facility] [address] [place] [address], [facility] Hemoglobin (Bld) [Mass/Vol] 8.3 g/dL Low 12.0-15.0 [facility] Comment on above: Order Comment: No: D o not add to previous draw Performed By: #### 3 5200 #### [facility] [address] [place] [address], [facility] MCH (RBC) [Entitic mass] 22.9 pg Low 27.0-33.0 [facility] Comment on above: Order Comment: No: D o not add to previous draw Performed By: #### 3 5200 #### [facility] [address] [place] [address], [facility] MCHC (RBC) [Mass/Vol] 29.4 g/dL Low 32.0-35.0 [facility] Comment on above: Order Comment: No: D o not add to previous draw Performed By: #### 3 5200 #### [facility] [address] [place] [id number], [facility] MCV (RBC) [Entitic vol] 77.9 fL Low 82.0-98.0 [facility] Comment on above: Order Comment: No: D o not add to previous draw Performed By: #### 3 5200 #### [facility] [address] [place] [address], [facility] Nucleated RBC/100 WBC (Bld) [Ratio] 0 % Normal 0-0 [facility] Comment on above: Order Comment: No: D o not add to previous draw Performed By: #### 3 5200 #### [facility] [address] [place] [id number], [facility] PLAT CNT 221 10*3/uL Normal 150-400 [facility] Comment on above: Order Comment: No: D o not add to previous draw Performed By: #### 3 5200 #### [facility] [address] [place] [address], [facility] RBC (Bld) [#/Vol] 3.62 10*6/uL Low 3.80-5.00 [facility] Comment on above: Order Comment: No: D o not add to previous draw Performed By: #### 3 5200 #### [facility] [address] [place] [id number], [facility] RDW ---- Normal 11.5-15.0 [facility] Comment on above: Order Comment: No: D o not add to previous draw Result Comment: Prev ious RDW was unable to be calculated Performed By: #### 3 5200 #### [facility] [address] [place] [address], [facility] WBC (Bld) [#/Vol] 11.88 10*3/uL High 4.00-10.60 [facility] Comment on above: Order Comment: No: D o not add to previous draw Performed By: #### 3 5200 #### [facility] [address] [place] [address], [facility] POC GLUCOSE LABon 03-15-2022 Glucose [Mass/Vol] 109 mg/dL High 70-100 [facility] Comment on above: Performed By: #### 8 5499 ####[facility] [facility] [place] [address], [facility] POC GLUCOSE LABon 03-14-2022 Glucose [Mass/Vol] 278 mg/dL High 70-100 [facility] Comment on above: Performed By: #### 8 5499 ####[facility] [place] [address], [facility] Glucose [Mass/Vol] 195 mg/dL High 70-100 [facility] Comment on above: Performed By: #### 8 5499 ####[facility] [place] [address], [facility] Glucose [Mass/Vol] 114 mg/dL High 70-100 [facility] Comment on above: Performed By: #### 8 5499 ####[facility] [facility] [place] [address], [place] Glucose [Mass/Vol] 113 mg/dL High 70-100 [facility] Comment on above: Performed By: #### 3 5200 #### [facility] [address] [place] [address], [facility] PORTABLE CHEST 1 VIEWon PORTABLE CHEST [address] [facility] Department of Radiology [address] [place] [id number] Patient Name: LISE CANALES : 1955 Sex: F Age: Race: White Pt. Location: [id number] Patient Status: I Ordered Date: 03/14/2022 2:35:00 [...] chest. Electronically signed: Tyshawn Tapia. Transcribed by: [email or web address], User Resident: Electronically Signed by: TYSHAWN TAPIA @ 03/14/2022 03:31 PM Normal [facility] Comment on above: Order Comment: Check Chest Tube Position, S/P Chest tube DC'd PORTABLE CHEST [address] [facility] Department of Radiology [address] [place] [phone] Patient Name: LISE CANALES : 1955 Sex: F Age: Race: White Pt. Location: [id number] Patient Status: I Ordered Date: 03/14/2022 6:50:00 [...] pneumothorax. Electronically signed: Tyshawn Tapia. Transcribed by: [email or web address], User Resident: Electronically Signed by: TYSHAWN TAPIA @ 03/14/2022 02:56 PM Normal [facility] Comment on above: Order Comment: Check Chest Tube Position, S/P Chest tube DC'd POC GLUCOSE LABon 03-13-2022 Glucose [Mass/Vol] 282 mg/dL High 70-100 [facility] Comment on above: Performed By: #### 8 5499 ####[facility] [place] [address], [place] Glucose [Mass/Vol] 163 mg/dL High 70-100 [facility] Comment on above: Performed By: #### 8 5499 ####[facility] [place] [address], [place] Glucose [Mass/Vol] 149 mg/dL High 70-100 [facility] Comment on above: Performed By: #### 3 5200 #### [facility] [address] [place] [address], [place] Glucose [Mass/Vol] 149 mg/dL High 70-100 [facility] Comment on above: Performed By: #### 8 5499 ####[facility] [place] [address], [place] PORTABLE CHEST 1 VIEWon PORTABLE CHEST [address] [facility] Department of Radiology [address] [place] [phone] Patient Name: LISE CANALES : 1955 Sex: F Age: Race: White Pt. Location: [id number] Patient Status: I Ordered Date: 03/13/2022 4:15:00 [...] morning Electronically signed: Avinash Mckay. Transcribed by: [email or web address], User Resident: Electronically Signed by: AVINASH MCKAY @ 03/13/2022 06:20 PM Normal [facility] Comment on above: Order Comment: Check Chest Tube Position, S/P Chest tube DC'd PORTABLE CHEST [address] [facility] Department of Radiology [address] [place] [phone] Patient Name: LISE CANALES : 1955 Sex: F Age: Race: White Pt. Location: [id number] Patient Status: I Ordered Date: 03/13/2022 6:50:00 [...] congestion. Electronically signed: Tyshawn Tapia. Transcribed by: [email or web address], User Resident: Electronically Signed by: TYSHAWN TAPIA @ 03/13/2022 08:34 AM Normal [facility] Comment on above: Order Comment: Evalu ate for Aspiration POTASSIUM BLOODon 03-13-2022 Potassium [Moles/Vol] 4.5 mmol/L Normal 3.5-5.1 [facility] Comment on above: Order Comment: No: D o not add to previous draw Performed By: #### 3 5200 #### [facility] [address] [place] [address], [facility] BASIC METABOLIC PANELon Calcium [Mass/Vol] 9.4 mg/dL Normal 8.6-10.3 [facility] Comment on above: Order Comment: Check Chest Tube Position, S/P Chest tube DC'd Performed By: #### 0 0071 ####[facility] [place] [address], [facility] Chloride [Moles/Vol] 98 mmol/L Normal 98-107 [facility] Comment on above: Order Comment: Check Chest Tube Position, S/P Chest tube DC'd Performed By: #### 0 0071 ####[facility] [place] [place] [address], [facility] CO2 [Moles/Vol] 34 mmol/L High 21-31 [facility] Comment on above: Order Comment: Check Chest Tube Position, S/P Chest tube DC'd Performed By: #### 0 0071 ####[facility] [place] [address], [facility] Creatinine [Mass/Vol] 0.56 mg/dL Low 0.60-1.20 [facility] Comment on above: Order Comment: Check Chest Tube Position, S/P Chest tube DC'd Performed By: #### 0 0071 ####[facility] [place] [address], [facility] GFR/1.73 sq M.predicted among non-blacks MDRD (S/P/Bld) [Vol rate/Area] mL/min/{1.73_m2} Normal >60 [facility] Comment on above: Order Comment: Check Chest Tube Position, S/P Chest tube DC'd Result Comment: [facility]'s estimated glomerular filtration rate (eGFR) will [...] of individuals. Performed By: #### 0 0071 ####[facility] [facility] [place] [address], [facility] Glucose [Mass/Vol] 114 mg/dL High 70-100 [facility] Comment on above: Order Comment: Check Chest Tube Position, S/P Chest tube DC'd Performed By: #### 0 0071 ####[facility] [facility] [place] [address], [facility] Potassium [Moles/Vol] 3.3 mmol/L Low 3.5-5.1 [facility] Comment on above: Order Comment: Check Chest Tube Position, S/P Chest tube DC'd Performed By: #### 0 0071 ####[facility] [facility] [place] [address], [facility] Sodium [Moles/Vol] 140 mmol/L Normal 136-145 [facility] Comment on above: Order Comment: Check Chest Tube Position, S/P Chest tube DC'd Performed By: #### 0 0071 ####[facility] [facility] [place] [address], [facility] Urea nitrogen [Mass/Vol] 9 mg/dL Normal 7-25 [facility] Comment on above: Order Comment: Check Chest Tube Position, S/P Chest tube DC'd Performed By: #### 0 0071 ####[facility] CBC COMPLETE BLOOD COUNTon 0 03-12-2022 Hematocrit (Bld) [Volume fraction] 35.2 % Low 36.0-45.0 [facility] Comment on above: Order Comment: No: D o not add to previous draw Performed By: #### 3 5200 #### [facility] [address] [place] [address], [facility] Hemoglobin (Bld) [Mass/Vol] 10.1 g/dL Low 12.0-15.0 [facility] Comment on above: Order Comment: No: D o not add to previous draw Performed By: #### 3 5200 #### [facility] [address] [place] [address], [facility] IMM PLATELET FRAC 3.6 % Normal 0.8-6.3 [facility] Comment on above: Order Comment: No: D o not add to previous draw Performed By: #### 3 5200 #### [facility] [address] [facility] [place] [address], [facility] MCH (RBC) [Entitic mass] 21.9 pg Low 27.0-33.0 [facility] Comment on above: Order Comment: No: D o not add to previous draw Performed By: #### 3 5200 #### [facility] [address] [place] [address], [facility] MCHC (RBC) [Mass/Vol] 28.7 g/dL Low 32.0-35.0 [facility] Comment on above: Order Comment: No: D o not add to previous draw Performed By: #### 3 5200 #### [facility] [address] [facility] [place] [id number], [facility] MCV (RBC) [Entitic vol] 76.2 fL Low 82.0-98.0 [facility] Comment on above: Order Comment: No: D o not add to previous draw Performed By: #### 3 5200 #### [facility] [address] [place] [address], [facility] Nucleated RBC/100 WBC (Bld) [Ratio] 0 % Normal 0-0 [facility] Comment on above: Order Comment: No: D o not add to previous draw Performed By: #### 3 5200 #### [facility] [address] [place] [address], [facility] PLAT CNT 129 10*3/uL Low 150-400 [facility] Comment on above: Order Comment: No: D o not add to previous draw Performed By: #### 3 5200 #### [facility] [address] [place] [address], [facility] RBC (Bld) [#/Vol] 4.62 10*6/uL Normal 3.80-5.00 [facility] Comment on above: Order Comment: No: D o not add to previous draw Performed By: #### 3 5200 #### [facility] [address] [place] [address], [facility] RDW Unable to Calculate Normal 11.5-15.0 [facility] Comment on above: Order Comment: No: D o not add to previous draw Performed By: #### 3 5200 #### [facility] [address] [place] [id number], [facility] WBC (Bld) [#/Vol] 11.72 10*3/uL High 4.00-10.60 [facility] Comment on above: Order Comment: No: D o not add to previous draw Performed By: #### 3 5200 #### [facility] [address] [place] [address], [facility] POC GLUCOSE LABon 03-12-2022 Glucose [Mass/Vol] 252 mg/dL High 70-100 [facility] Comment on above: Performed By: #### 3 5200 #### [facility] [address] [place] [address], [facility] POC GLUCOSE LABon 03-11-2022 Glucose [Mass/Vol] 121 mg/dL High 70-100 [facility] Comment on above: Performed By: #### 8 5499 ####[facility] [place] [address], [facility] Glucose [Mass/Vol] 122 mg/dL High 70-100 [facility] Comment on above: Performed By: #### 3 5200 #### [facility] [address] [place] [address], [facility] Glucose [Mass/Vol] 86 mg/dL Normal 70-100 [facility] Comment on above: Performed By: #### 3 5200 #### [facility] [address] [place] [address], [facility] PORTABLE CHEST 1 VIEWon PORTABLE CHEST [address] [facility] Department of Radiology [address] [place] [address] Patient Name: LISE CANALES : 1955 Sex: F Age: Race: White Pt. Location: [address] [place] [address] Patient Status: I Ordered Date: 03/11/2022 3:25:00 [...] abnormalities Electronically signed: Avinash Mckay. Transcribed by: [email or web address], User Resident: Electronically Signed by: AVINASH MCKAY @ 03/11/2022 06:30 PM Normal [facility] Comment on above: Order Comment: Evalu ate for Atelectasis CBC COMPLETE BLOOD COUNTon 0 03-10-2022 Erythrocyte distribution width (RBC) [Ratio] 29.9 % High 11.5-15.0 [facility] Comment on above: Order Comment: No: D o not add to previous draw Performed By: #### 3 5200 #### [facility] [address] [facility] [place] [address], [facility] Hematocrit (Bld) [Volume fraction] 32.2 % Low 36.0-45.0 [facility] Comment on above: Order Comment: No: D o not add to previous draw Performed By: #### 3 5200 #### [facility] [address] [facility] [place] [address], [facility] Hemoglobin (Bld) [Mass/Vol] 9.2 g/dL Low 12.0-15.0 [facility] Comment on above: Order Comment: No: D o not add to previous draw Performed By: #### 3 5200 #### [facility] [address] [place] [address], [facility] IMM PLATELET FRAC 3.4 % Normal 0.8-6.3 [facility] Comment on above: Order Comment: No: D o not add to previous draw Performed By: #### 3 5200 #### [facility] [address] [place] [address], [facility] MCH (RBC) [Entitic mass] 21.9 pg Low 27.0-33.0 [facility] Comment on above: Order Comment: No: D o not add to previous draw Performed By: #### 3 5200 #### [facility] [address] [place] [id number], [facility] MCHC (RBC) [Mass/Vol] 28.6 g/dL Low 32.0-35.0 [facility] Comment on above: Order Comment: No: D o not add to previous draw Performed By: #### 3 5200 #### [facility] [address] [place] [address], [facility] MCV (RBC) [Entitic vol] 76.7 fL Low 82.0-98.0 [facility] Comment on above: Order Comment: No: D o not add to previous draw Performed By: #### 3 5200 #### [facility] [address] [place] [address], [facility] Nucleated RBC/100 WBC (Bld) [Ratio] 0 % Normal 0-0 [facility] Comment on above: Order Comment: No: D o not add to previous draw Performed By: #### 3 5200 #### [facility] [address] [place] [address], [facility] PLAT CNT 124 10*3/uL Low 150-400 [facility] Comment on above: Order Comment: No: D o not add to previous draw Performed By: #### 3 5200 #### [facility] [address] [place] [address], [facility] [facility] RBC (Bld) [#/Vol] 4.20 10*6/uL Normal 3.80-5.00 [facility] Comment on above: Order Comment: No: D o not add to previous draw Performed By: #### 3 5200 #### [facility] [address] [place] [address], [facility] WBC (Bld) [#/Vol] 12.68 10*3/uL High 4.00-10.60 [facility] Comment on above: Order Comment: No: D o not add to previous draw Performed By: #### 3 5200 #### [facility] [address] [place] [address], [facility] HEMOGLOBIN A1Con 03-10-2022 Glucose [Moles/Vol] 143 mmol/L Normal [facility] Comment on above: Order Comment: No: D o not add to previous draw Result Comment: Resu lt changed by BSHORT on 03/10/2022 13:15. The previous value was 140. Performed By: #### 3 1791 #### [facility] [address] [facility] [address], [facility] HbA1c (Bld) [Mass fraction] 6.6 % High 4.0-6.0 [facility] Comment on above: Order Comment: No: D o not add to previous draw Result Comment: Resu lt changed by BSHORT on 03/10/2022 13:15. The previous value was 6.5. Performed By: #### 3 1791 #### [facility] [address] [place] [address], [facility] POC GLUCOSE LABon 03-10-2022 Glucose [Mass/Vol] 107 mg/dL High 70-100 [facility] Comment on above: Performed By: #### 3 5200 #### [facility] [address] [place] [address], [place] Glucose [Mass/Vol] 100 mg/dL Normal 70-100 [facility] Comment on above: Performed By: #### 8 5499 ####[facility] [facility] [place] [address], [place] Glucose [Mass/Vol] 147 mg/dL High 70-100 [facility] Comment on above: Performed By: #### 8 5499 ####[facility] [place] [address] Glucose [Mass/Vol] 65 mg/dL Low 70-100 [facility] Comment on above: Performed By: #### 8 5499 ####[facility] [place] [address] PORTABLE CHEST 1 VIEWon PORTABLE CHEST [address] [facility] Department of Radiology [address] [place] [address] Patient Name: LISE CANALES : 1955 Sex: F Age: Race: White Pt. Location: [id number] Patient Status: I Ordered Date: 03/10/2022 7:40:00 [...] recommended. Electronically signed: Derek Ingram. Transcribed by: [email or web address], User Resident: Electronically Signed by: DEREK INGRAM @ 03/10/2022 12:10 PM Normal [facility] Comment on above: Order Comment: No: D o not add to previous draw *URINE CULTUREon 03-09-2022 *URINE CULTURE Clinical Report: (D) Specimen/Source: URINE/CLEAN VOID URINE Collected: 03/09/2022 01:58 Status: Final Last Updated: 03/10/2022 08:51 ISO (Final) 50,000 - 100,000 Cfu/mL Mixed Lexi: Multiple Organisms present suggest contamination. Suggest Repeat Specimen Normal [facility] Comment on above: Performed By: #### 3 0339 ####[facility] CBC W/DIFFon 03-09-2022 ABS IMM GRANS 0.1 10*3/uL Normal 0.0-0.2 [facility] Comment on above: Order Comment: Check Chest Tube Position, S/P Chest tube DC'd Performed By: #### 5 0103 ####[facility] ABS NEUTROPHILS 13.3 10*3/uL High 1.6-7.6 [facility] Comment on above: Order Comment: Check Chest Tube Position, S/P Chest tube DC'd Performed By: #### 5 0103 ####[facility] ANISO Moderate Normal [facility] Comment on above: Order Comment: Check Chest Tube Position, S/P Chest tube DC'd Performed By: #### 5 0103 ####[facility] Basophils (Bld) [#/Vol] 0.0 10*3/uL Normal 0.0-0.2 [facility] Comment on above: Order Comment: Check Chest Tube Position, S/P Chest tube DC'd Performed By: #### 5 0103 ####[facility] Basophils/100 WBC (Bld) 0.3 % Normal 0.0-1.0 [facility] Comment on above: Order Comment: Check Chest Tube Position, S/P Chest tube DC'd Performed By: #### 5 0103 ####[facility] Eosinophils (Bld) [#/Vol] 0.1 10*3/uL Normal 0.0-0.5 [facility] Comment on above: Order Comment: Check Chest Tube Position, S/P Chest tube DC'd Performed By: #### 5 0103 ####[facility] Eosinophils/100 WBC (Bld) 0.5 % Normal 0.0-6.0 [facility] Comment on above: Order Comment: Check Chest Tube Position, S/P Chest tube DC'd Performed By: #### 5 0103 ####[facility] Erythrocyte distribution width (RBC) [Ratio] 28.7 % High 11.5-15.0 [facility] Comment on above: Order Comment: Check Chest Tube Position, S/P Chest tube DC'd Performed By: #### 5 0103 ####[facility] Hematocrit (Bld) [Volume fraction] 29.1 % Low 36.0-45.0 [facility] Comment on above: Order Comment: Check Chest Tube Position, S/P Chest tube DC'd Performed By: #### 5 0103 ####[facility] Hemoglobin (Bld) [Mass/Vol] 8.3 g/dL Low 12.0-15.0 [facility] Comment on above: Order Comment: Check Chest Tube Position, S/P Chest tube DC'd Performed By: #### 3 ####[facility] HYPO Slight Normal [facility] Comment on above: Order Comment: Check Chest Tube Position, S/P Chest tube DC'd Performed By: #### 3 ####[facility] IMMATURE GRANS 0.5 % Normal 0.0-1.0 [facility] Comment on above: Order Comment: Check Chest Tube Position, S/P Chest tube DC'd Performed By: #### 5 0103 ####[facility] Lymphocytes (Bld) [#/Vol] 0.8 10*3/uL Low 1.2-4.0 [facility] Comment on above: Order Comment: Check Chest Tube Position, S/P Chest tube DC'd Performed By: #### 5 0103 ####[facility] Lymphocytes/100 WBC (Bld) 5.5 % Low 20.0-45.0 [facility] Comment on above: Order Comment: Check Chest Tube Position, S/P Chest tube DC'd Performed By: #### 5 0103 ####[facility] MCH (RBC) [Entitic mass] 21.7 pg Low 27.0-33.0 [facility] Comment on above: Order Comment: Check Chest Tube Position, S/P Chest tube DC'd Performed By: #### 5 0103 ####[facility] MCHC (RBC) [Mass/Vol] 28.5 g/dL Low 32.0-35.0 [facility] Comment on above: Order Comment: Check Chest Tube Position, S/P Chest tube DC'd Performed By: #### 5 0103 ####[facility] MCV (RBC) [Entitic vol] 76.2 fL Low 82.0-98.0 [facility] Comment on above: Order Comment: Check Chest Tube Position, S/P Chest tube DC'd Performed By: #### 5 3 ####[facility] Monocytes (Bld) [#/Vol] 1.1 10*3/uL High 0.1-1.0 [facility] Comment on above: Order Comment: Check Chest Tube Position, S/P Chest tube DC'd Performed By: #### 5 3 ####[facility] MONOS 7.3 % Normal 5.0-12.0 [facility] Comment on above: Order Comment: Check Chest Tube Position, S/P Chest tube DC'd Performed By: #### 5 3 ####[facility] Neutrophils/100 WBC (Bld) 85.9 % High 40.0-72.0 [facility] Comment on above: Order Comment: Check Chest Tube Position, S/P Chest tube DC'd Performed By: #### 5 0103 ####[facility] [place] [address], [facility] Nucleated RBC/100 WBC (Bld) [Ratio] 0 % Normal 0-0 [facility] Comment on above: Order Comment: Check Chest Tube Position, S/P Chest tube DC'd Performed By: #### 5 0103 ####[facility] [facility] [place] [address], [facility] PLAT CNT 149 10*3/uL Low 150-400 [facility] Comment on above: Order Comment: Check Chest Tube Position, S/P Chest tube DC'd Performed By: #### 5 0103 ####[facility] [facility].[address] POIK Slight Normal [facility] Comment on above: Order Comment: Check Chest Tube Position, S/P Chest tube DC'd Performed By: #### 5 0103 ####[facility] [facility].[address] POLY Slight Normal [facility] Comment on above: Order Comment: Check Chest Tube Position, S/P Chest tube DC'd Performed By: #### 5 0103 ####[facility] [facility] [place] [address], [facility] RBC (Bld) [#/Vol] 3.82 10*6/uL Normal 3.80-5.00 [facility] Comment on above: Order Comment: Check Chest Tube Position, S/P Chest tube DC'd Performed By: #### 5 0103 ####[facility] [place] [address], [facility] WBC (Bld) [#/Vol] 15.41 10*3/uL High 4.00-10.60 [facility] Comment on above: Order Comment: Check Chest Tube Position, S/P Chest tube DC'd Performed By: #### 5 0103 ####[facility] [place] [address], [facility] COMP METABOLIC PANELon 03-09 Albumin [Mass/Vol] 3.8 g/dL Normal 3.5-5.7 [facility] Comment on above: Order Comment: No: D o not add to previous draw Performed By: #### 3 5200, 22720, 76826, 61635 #### [facility] [address] [place] [address], [facility] ALKALINE PHOSPH 52 IU/L Normal 34-104 [facility] Comment on above: Order Comment: No: D o not add to previous draw Performed By: #### 3 5200, 94592, 08865, 08172 #### [facility] [address] [place] [address], [place] ALT [Catalytic activity/Vol] 13 U/L Normal 7-52 [facility] Comment on above: Order Comment: No: D o not add to previous draw Performed By: #### 3 5200, 58115, 39368, 02917 #### [facility] [address] [place] [address], [place] AST [Catalytic activity/Vol] 14 U/L Normal 13-39 [facility] Comment on above: Order Comment: No: D o not add to previous draw Performed By: #### 3 5200, 45762, 42889, 83582 #### [facility] [address] [place] [address], [place] Bilirubin [Mass/Vol] 0.4 mg/dL Normal 0.3-1.0 [facility] Comment on above: Order Comment: No: D o not add to previous draw Performed By: #### 3 5200, 04214, 10688, 05028 #### [facility] [address] [place] [address], [place] Calcium [Mass/Vol] 9.2 mg/dL Normal 8.6-10.3 [facility] Comment on above: Order Comment: No: D o not add to previous draw Performed By: #### 3 5200, 69431, 39587, 72034 #### [facility] [address] [place] [address], [place] Chloride [Moles/Vol] 99 mmol/L Normal 98-107 [facility] Comment on above: Order Comment: No: D o not add to previous draw Performed By: #### 3 5200, 75682, 07397, 70788 #### [facility] [address] [place] [address], [place] CO2 [Moles/Vol] 33 mmol/L High 21-31 [facility] Comment on above: Order Comment: No: D o not add to previous draw Performed By: #### 3 5200, 59345, 93107, 51061 #### [facility] [address] [place] [address], [place] Creatinine [Mass/Vol] 0.79 mg/dL Normal 0.55-1.02 [facility] Comment on above: Order Comment: No: D o not add to previous draw Performed By: #### 3 5200, 89846, 68346, 29611 #### [facility] [address] [place] [address], [facility] Performed By: #### B [id number] #### [facility] [address] [address] [address] Kayley Hatfield GFR/1.73 sq M.predicted among non-blacks MDRD (S/P/Bld) [Vol rate/Area] mL/min/{1.73_m2} Normal >60 [facility] Comment on above: Order Comment: No: D o not add to previous draw Result Comment: [facility]'s estimated glomerular filtration rate (eGFR) will [...] of individuals. Performed By: #### 3 0, 40425, 78848, 21238 #### [facility] [address] [place] [address], [place] Glucose [Mass/Vol] 125 mg/dL High 70-100 [facility] Comment on above: Order Comment: No: D o not add to previous draw Performed By: #### 3 0, , 55690, 66786 #### [facility] [address] [place] [address], [place] Potassium [Moles/Vol] 4.7 mmol/L Normal 3.5-5.1 [facility] Comment on above: Order Comment: No: D o not add to previous draw Performed By: #### 3 0, 48684, 14432, 22112 #### [facility] [address] [place] [address], [place] Protein [Mass/Vol] 5.9 g/dL Low 6.0-8.3 [facility] Comment on above: Order Comment: No: D o not add to previous draw Performed By: #### 3 0, 43607, 98579, 25011 #### [facility] [address] [place] [address], [place] Sodium [Moles/Vol] 136 mmol/L Normal 136-145 [facility] Comment on above: Order Comment: No: D o not add to previous draw Performed By: #### 3 0, 09725, 31732, 32254 #### [facility] [address] [place] [address], [place] Urea nitrogen [Mass/Vol] 12 mg/dL Normal 7-25 [facility] Comment on above: Order Comment: No: D o not add to previous draw Performed By: #### 3 5200, 13766, 93720, 74768 #### [facility] [address] [place] [address], [place] LIPID PROFILEon 03-09-2022 Cholesterol [Mass/Vol] 160 mg/dL Normal 120-200 [facility] Comment on above: Order Comment: No: D o not add to previous draw Result Comment: CHOL ESTEROL REFERENCE RANGE: 20 YEARS AND OLDER CARDIOVASCULAR RISK Less than 200 mg/dl Low Risk 200 to 239 mg/dl Borderline Risk 240 mg/dl and greater High Risk Performed By: #### 3 5200, 24076, 31451, 82497 #### [facility] [address] [place] [address], [facility] Cholesterol in HDL [Mass/Vol] 76 mg/dL Normal 23-92 [facility] Comment on above: Order Comment: No: D o not add to previous draw Result Comment: Slig ht variation in normal range could be due to gender and/or age. HDL CHOLESTEROL REFERENCE RANGE: 20 years and older Cardiovascular Risk > or =60 mg/dL Desirable 40 TO 59 mg/dL Low Risk <40 mg/dL High Risk Performed By: #### 3 5200, 51686, 99683, 88935 #### [facility] [address] [place] [address], [place] Cholesterol in LDL [Mass/Vol] 48 mg/dL Normal 0-130 [facility] Comment on above: Order Comment: No: D o not add to previous draw Result Comment: LDL IS A CALCULATION LDL IS ONLY VALID IF THE TRIG IS LESS THAN 400. Performed By: #### 3 5200, 25613, 44789, 64855 #### [facility] [address] [place] [address], [place] Cholesterol.total/Cho lesterol in HDL [Mass ratio] 2.1 {ratio} Normal .0-4.5 [facility] Comment on above: Order Comment: No: D o not add to previous draw Performed By: #### 3 5200, 39004, 50935, 01270 #### [facility] [address] [place] [address], [facility] NON-HDL CHOLESTEROL 84 mg/dL Normal [facility] Comment on above: Order Comment: No: D o not add to previous draw Performed By: #### 3 5200, 46355, 99056, 16664 #### [facility] [address] [place] [address], [facility] Triglyceride [Mass/Vol] 179 mg/dL High 40-149 [facility] Comment on above: Order Comment: No: D o not add to previous draw Result Comment: TRIG LYCERIDE REFERENCE RANGE: 20 YEARS AND OLDER CARDIOVASCULAR RISK LESS THAN 150 mg/dl LOW RISK 150 TO 199 mg/dl BORDERLINE RISK 200 mg/dl AND GREATER HIGH RISK Performed By: #### 3 5200, 76846, 72878, 34233 #### [facility] [address] [place] [address], [facility] VLDL CHOL 36 mg/dL Normal 0-40 [facility] Comment on above: Order Comment: No: D o not add to previous draw Performed By: #### 3 5200, 17672, 94267, 40993 #### [facility] [address] [place] [address], [facility] POC GLUCOSE LABon 03-09-2022 Glucose [Mass/Vol] 105 mg/dL High 70-100 [facility] Comment on above: Performed By: #### 8 5499 ####[facility] [place] [address], [facility] POC SARS COV2 ANTIGEN NEGATI VEon 03-09-2022 POC SARS COV2 ANTIGEN NEG Negative Normal NEGATIVE [facility] Comment on above: Result Comment: Nega [...] antigen from SARS-CoV-2 in direct nasopharyngeal swab (SILK WORKER) specimens from individuals who are suspected of [...] of Accreditation. Performed By: #### 3 2044 ####[address] PORTABLE CHEST 1 VIEWon PORTABLE CHEST [address] [facility] Department of Radiology [address] [place] [address] Patient Name: LISE CANALES : 1955 Sex: F Age: Race: White Pt. Location: [id number] Patient Status: I Ordered Date: 03/09/2022 8:55:00 [...] COPD. Electronically signed: Derek Ingram. Transcribed by: [email or web address], User Resident: Electronically Signed by: DEREK INGRAM @ 03/09/2022 02:48 PM Normal [facility] Comment on above: Order Comment: Check Chest Tube Position, S/P Chest tube DC'd TROPONIN-Ion 03-09-2022 Troponin I.cardiac [Mass/Vol] 0.00 ng/mL Normal 0.00-0.04 [facility] Comment on above: Order Comment: No: D o not add to previous draw Result Comment: REFE RENCE RANGES: 0.00 - 0.04 ng/ml NORMAL 0.05 - 0.50 ng/ml INDETERMINATE > 0.50 ng/ml CONSISTENT WITH AN M.I. Performed By: #### 3 0770, 67167, 18238, 62146 #### [facility] [address] Troponin I.cardiac [Mass/Vol] 0.01 ng/mL Normal 0.00-0.04 [facility] Comment on above: Order Comment: No: D o not add to previous draw Result Comment: REFE RENCE RANGES: 0.00 - 0.04 ng/ml NORMAL 0.05 - 0.50 ng/ml INDETERMINATE > 0.50 ng/ml CONSISTENT WITH AN M.I. Performed By: #### 3 5200 #### [facility] [address] Troponin I.cardiac [Mass/Vol] 0.00 ng/mL Normal 0.00-0.04 [facility] Comment on above: Order Comment: No: D o not add to previous draw Result Comment: REFE RENCE RANGES: 0.00 - 0.04 ng/ml NORMAL 0.05 - 0.50 ng/ml INDETERMINATE > 0.50 ng/ml CONSISTENT WITH AN M.I. Performed By: #### 3 5200, 21722, 64577, 29008 #### [facility] [address] TSH3 WITH REFLEX FT4on 03-09 TSH 3RD GENERATION 0.60 uIU/mL Normal 0.34-5.60 [facility] Comment on above: Order Comment: No: D o not add to previous draw Performed By: #### 3 5200, 87664, 69676, 72244 #### [facility] [address] URINALYSIS REFLEXon 03-09-20 22 Appearance (U) CLEAR Normal CLEAR [facility] Comment on above: Order Comment: Check Chest Tube Position, S/P Chest tube DC'd Performed By: #### 3 0995 ####[facility] Bilirubin Ql (U) Negative Normal NEGATIVE [facility] Comment on above: Order Comment: Check Chest Tube Position, S/P Chest tube DC'd Performed By: #### 3 0965 ####[facility] [facility] [address], [facility] Color (U) STRAW Abnormal YELLOW [facility] Comment on above: Order Comment: Check Chest Tube Position, S/P Chest tube DC'd Performed By: #### 3 0965 ####[facility] [facility] [place] [address], [facility] EPIS OCC Normal FEW,OCC,NONE SEEN [facility] Comment on above: Order Comment: Check Chest Tube Position, S/P Chest tube DC'd Performed By: #### 3 0965 ####[facility] [facility] [place] [address], [facility] Glucose Ql (U) Negative Normal NEGATIVE [facility] Comment on above: Order Comment: Check Chest Tube Position, S/P Chest tube DC'd Performed By: #### 3 0965 ####[facility] [facility] [place] [address], [facility] Hemoglobin Ql (U) MODERATE Abnormal NEGATIVE [facility] Comment on above: Order Comment: Check Chest Tube Position, S/P Chest tube DC'd Performed By: #### 3 0965 ####[facility] [facility] [place] [address], [facility] KETONE Negative Normal NEGATIVE [facility] Comment on above: Order Comment: Check Chest Tube Position, S/P Chest tube DC'd Performed By: #### 3 0965 ####[facility] [facility] [place] [address], [facility] LEUK SHARMIN SMALL Abnormal NEGATIVE [facility] Comment on above: Order Comment: Check Chest Tube Position, S/P Chest tube DC'd Performed By: #### 3 0965 ####[facility] [facility] [place] [address], [facility] MUCUS THREADS OCC Abnormal NONE SEEN [facility] Comment on above: Order Comment: Check Chest Tube Position, S/P Chest tube DC'd Performed By: #### 3 0965 ####[facility] [facility].[address] Nitrite Ql (U) Negative Normal NEGATIVE [facility] Comment on above: Order Comment: Check Chest Tube Position, S/P Chest tube DC'd Performed By: #### 3 0965 ####[facility] pH (U) 6.0 [pH] Normal 5.0-8.0 [facility] Comment on above: Order Comment: Check Chest Tube Position, S/P Chest tube DC'd Performed By: #### 3 0965 ####[facility] [facility].[address] Protein Ql (U) Negative Normal NEGATIVE [facility] Comment on above: Order Comment: Check Chest Tube Position, S/P Chest tube DC'd Performed By: #### 3 0965 ####[facility] [facility].[address] RBC 6-10 Abnormal NONE SEEN [facility] Comment on above: Order Comment: Check Chest Tube Position, S/P Chest tube DC'd Performed By: #### 3 0965 ####[facility] [facility].[address] SPEC GRAV 1.015 Normal 1.015-1.020 [facility] Comment on above: Order Comment: Check Chest Tube Position, S/P Chest tube DC'd Performed By: #### 3 0965 ####[facility] WBC UA 11-20 Abnormal NONE SEEN [facility] Comment on above: Order Comment: Check Chest Tube Position, S/P Chest tube DC'd Performed By: #### 3 0965 ####[facility] [place] [address], [place] CBC W MANUAL DIFFon 03-08-20 22 ATYPICAL LYMPH # Normal [facility] Comment on above: Performed By: #### C VDTBH #### [facility] [address] [place] [address] Dr. Kayley Hatfield ATYPICAL LYMPH % Normal [facility] Comment on above: Performed By: #### C VDTBH #### [facility] [address] [place] [address] Dr. Kayley Hatfield BAND # Normal 0.0-0.3 [facility] Comment on above: Performed By: #### C VDTBH #### [facility] [address] [place] [address] Dr. Kayley Hatfield BAND % Normal 0-5 [facility] Comment on above: Performed By: #### C VDTBH #### [facility] [address] [place] [address] Dr. Kayley Hatfield BASOM # 0.00 103/ul Normal 0.00-0.10 [facility] Comment on above: Performed By: #### C VDTBH #### [facility] [address] [place] [address] Dr. Kayley Hatfield BASOM % 0.0 % Critically low 0.2-2.0 [facility] Comment on above: Performed By: #### C VDTBH #### [facility] [address] [place] [address] Dr. Kayley Hatfield BLAST # Normal [facility] Comment on above: Performed By: #### C VDTBH #### [facility] [address] [place] [address] Dr. Kayley Hatfield BLAST % Normal [facility] Comment on above: Performed By: #### C VDTBH #### [facility] [address] [place] [address] Dr. Kayley Hatfield CORRECTED WBC Normal 4.0-11.0 [facility] Comment on above: Performed By: #### C VDTBH #### [facility] [address] [place] [address] Dr. Kayley Hatfield EOS # 0.14 103/ul Normal 0.00-0.70 [facility] Comment on above: Performed By: #### C VDTBH #### [facility] [address] [place] [address] Dr. Kayley Hatfield EOS% 1.0 % Normal 0.9-7.0 [facility] Comment on above: Performed By: #### C VDTBH #### [facility] [address] [place] [address] Dr. Kayley Hatfield HCT 27.5 % Critically low 36.0-48.0 [facility] Comment on above: Performed By: #### C VDTBH #### [facility] [address] [place] [address] Dr. Kayley Hatfield HGB 7.9 g/dl Critically low 12.0-16.0 [facility] Comment on above: Performed By: #### C VDTBH #### [facility] [address] [place] [address] Dr. Kayley Hatfield LYMPHM # 1.42 103/ul Normal 1.20-3.80 [facility] Comment on above: Performed By: #### C VDTBH #### [facility] [address] [place] [address] Dr. Kayley Hatfield LYMPHM% 10.0 % Critically low 20.5-60.0 [facility] Comment on above: Performed By: #### C VDTBH #### [facility] [address] [place] [address] Dr. Kayley Hatfield MCH 21.5 pg Critically low 26.7-34.0 [facility] Comment on above: Performed By: #### C VDTBH #### [facility] [address] [place] [address] Dr. Kayley Hatfield MCHC 28.7 g/dl Critically low 29.9-35.2 [facility] Comment on above: Performed By: #### C VDTBH #### [facility] [address] [place] [address] Dr. Kayley Hatfield MCV 74.7 fL Critically low 81.0-99.0 [facility] Comment on above: Performed By: #### C VDTBH #### [facility] [address] [place] [address] Dr. Kayley Hatfield METAMYELOCYTE # Normal [facility] Comment on above: Performed By: #### C VDTBH #### [facility] [address] [place] [address] Dr. Kayley Hatfield METAMYELOCYTE % Normal [facility] Comment on above: Performed By: #### C VDTBH #### [facility] [address] [place] [address] Dr. Kayley Hatfield MONOM# 2.13 103/ul Critically high 0.30-0.80 [facility] Comment on above: Performed By: #### C VDTBH #### [facility] [address] [place] [address] Dr. Kayley Hatfield MONOM% 15.0 % Critically high 1.7-12.0 [facility] Comment on above: Performed By: #### C VDTBH #### [facility] [address] [place] [address] Dr. Kayley Hatfield MPV 9.5 fL Normal 9.5-13.5 [facility] Comment on above: Performed By: #### C VDTBH #### [facility] [address] [place] [address] Dr. Kayley Hatfield MYELOCYTE # Normal [facility] Comment on above: Performed By: #### C VDTBH #### [facility] [address] [place] [address] Dr. Kayley Hatfield MYELOCYTE % Normal [facility] Comment on above: Performed By: #### C VDTBH #### [facility] [address] [place] [address] Dr. Kayley Hatfield NRBC Normal [facility] Comment on above: Performed By: #### C VDTBH #### [facility] [address] [place] [address] Dr. Kayley Hatfield PLT 180 103/ul Normal 150-450 [facility] Comment on above: Performed By: #### C VDTBH #### [facility] [address], [place] [address] Dr. Kayley Hatfield RBC 3.68 106/ul Critically low 4.20-5.40 [facility] Comment on above: Performed By: #### C VDTBH #### [facility] [address], [place] [address] Dr. Kayley Hatfield RDW 27.5 % Critically high 11.0-15.0 [facility] Comment on above: Performed By: #### C VDTBH #### [facility] [address] [address] [address] Kayley Hatfield SEG # 10.51 103/ul Critically high 1.40-6.50 [facility] Comment on above: Performed By: #### C VDTBH #### [facility] [address] [place] [address] Dr. Kayley Hatfield SEG % 74.0 % Normal 43.0-75.0 [facility] Comment on above: Performed By: #### C VDTBH #### [facility] [address] [address] [address] Kayley Hatfield WBC 14.2 103/ul Critically high 4.0-11.0 [facility] Comment on above: Performed By: #### C VDTBH #### [facility] [address] [address] [address] Kayley Hatfield PRBC LEUKOREDUCEDon 03-08-20 ABO and Rh group Nom (Bld) Cross Match Result Compatible Unit Blood Type O Pos Unit Number [id number] Status Information Transfused Product ID Red Blood Cells Product Code [id number] Cross Match Result Compatible Blood Bank Notes CALLED TO VIC IN ICU @1657 Unit Blood Type O Pos Unit Number [id number] Status Information Transfused Product ID Red Blood Cells Product Code [id number] Normal [facility] Comment on above: Performed By: #### P RBC #### [facility] [address] [place] [address] Dr. Kayley Hatfield PROF CHEM 8 (BAS METB)on Anion gap [Moles/Vol] 10.1 mmol/L Normal [facility] Comment on above: Performed By: #### B [id number] #### [facility] [address] [place] [address] Dr. Kayley Hatfield Calcium [Mass/Vol] 8.8 mg/dL Normal 8.5-10.1 [facility] Comment on above: Performed By: #### B [id number] #### [facility] [address] [address] [address] Kayley Hatfield Chloride [Moles/Vol] 100 mmol/L Normal 98-107 [facility] Comment on above: Performed By: #### B LDCX1 #### [facility] [address] [place] [address] Dr. Kayley Hatfield CO2 [Moles/Vol] 34.2 mmol/L Critically high 21.0-32.0 [facility] Comment on above: Performed By: #### B LDCX1 #### [facility] [address] [place] [address] Dr. Kayley Hatfield EGFR-AF MARTINIQUAIS >60 Normal >=60 [facility] Comment on above: Performed By: #### B LDCX1 #### [facility] [address] [place] [address] Dr. Kayley Hatfield EGFR-NON AF MARTINIQUAIS >60 Normal >=60 [facility] Comment on above: Performed By: #### B LDCX1 #### [facility] [address] [place] [address] Dr. Kayley Hatfield Glucose [Mass/Vol] 107 mg/dL Critically high 74-106 [facility] Comment on above: Performed By: #### B LDCX1 #### [facility] [address] [address] [address] Kayley Hatfield Potassium [Moles/Vol] 4.3 mmol/L Normal 3.5-5.1 [facility] Comment on above: Performed By: #### B LDCX1 #### [facility] [address] [place] [address] Dr. Kayley Hatfield Sodium [Moles/Vol] 140 mmol/L Normal 136-145 [facility] Comment on above: Performed By: #### B LDCX1 #### [facility] [address] [address] [address] Kayley Hatfield Urea nitrogen [Mass/Vol] 15.0 mg/dL Normal 7.0-18.0 [facility] Comment on above: Performed By: #### B LDCX1 #### [facility] [address] [address] [address] Kayley Hatfield Urea nitrogen/Creatinine [Mass ratio] 19.0 mg/mg Normal [facility] Comment on above: Performed By: #### B LDCX1 #### [facility] [address] [address] [address] Kayley Hatfield XR CHEST 1 Von [...] by: MIGUE REYNOSO Date: 2022-03-08 07:02 Normal [facility] CBC W MANUAL DIFFon 03-07-20 22 ACANTHOCYTES SLIGHT Normal [facility] Comment on above: Performed By: #### B [id number] #### [facility] [address] [address] [address] Kayley Hatfield ANISOCYTOSIS 2+ Normal [facility] Comment on above: Performed By: #### B LDCX1 #### [facility] [address] [address] [address] Kayley Hatfield ATYPICAL LYMPH # Normal [facility] Comment on above: Performed By: #### B LDCX1 #### [facility] [address] [address] [address] Kayley Hatfield ATYPICAL LYMPH % Normal [facility] Comment on above: Performed By: #### B LDCX1 #### [facility] [address] [place] [address] Dr. Kayley Hatfield BAND # 0.0 103/ul Normal 0.0-0.3 [facility] Comment on above: Performed By: #### B LDCX1 #### [facility] [address] [place] [address] Dr. Kayley Hatfield BAND % 0 % Normal 0-5 [facility] Comment on above: Performed By: #### B LDCX1 #### [facility] [address] [place] [address] Dr. Kayley Hatfield BASOM # 0.00 103/ul Normal 0.00-0.10 [facility] Comment on above: Performed By: #### B LDCX1 #### [facility] [address] [place] [address] Dr. Kayley Hatfield BASOM % 0.0 % Critically low 0.2-2.0 [facility] Comment on above: Performed By: #### B LDCX1 #### [facility] [address] [place] [address] Dr. Kayley Hatfield BLAST # Normal [facility] Comment on above: Performed By: #### B LDCX1 #### [facility] [address] [place] [address] Dr. Kayley Hatfield BLAST % Normal [facility] Comment on above: Performed By: #### B LDCX1 #### [facility] [address] [place] [address] Dr. Kayley Hatfield ANDREE CELLS SLIGHT Normal [facility] Comment on above: Performed By: #### B LDCX1 #### [facility] [address] [place] [address] Dr. Kayley Hatfield CORRECTED WBC Normal 4.0-11.0 [facility] Comment on above: Performed By: #### B LDCX1 #### [facility] [address] [place] [address] Dr. Kayley Hatfield EOS # 0.16 103/ul Normal 0.00-0.70 [facility] Comment on above: Performed By: #### B LDCX1 #### [facility] [address] [address] [address] Kayley Hatfield EOS% 1.0 % Normal 0.9-7.0 [facility] Comment on above: Performed By: #### B LDCX1 #### [facility] [address] [address] [address] Kayley Hatfield GIANT PLATELETS SEEN Normal [facility] Comment on above: Performed By: #### B LDCX1 #### [facility] [address] [address] [address] Kayley Hatfield HCT 31.1 % Critically low 36.0-48.0 [facility] Comment on above: Performed By: #### B LDCX1 #### [facility] [address] [place] [address] Dr. Kayley Hatfield HGB 9.1 g/dl Critically low 12.0-16.0 [facility] Comment on above: Performed By: #### B LDCX1 #### [facility] [address] [place] [address] Dr. Kayely Hatfield HYPOCHROMASIA 1+ Normal [facility] Comment on above: Performed By: #### B LDCX1 #### [facility] [address] [place] [address] Dr. Kayley Hatfield LYMPHM # 2.09 103/ul Normal 1.20-3.80 [facility] Comment on above: Performed By: #### B LDCX1 #### [facility] [address] [place] [address] Dr. Kayley Hatfield LYMPHM% 13.0 % Critically low 20.5-60.0 [facility] Comment on above: Performed By: #### B LDCX1 #### [facility] [address] [place] [address] Dr. Kayley Hatfield MCH 21.4 pg Critically low 26.7-34.0 [facility] Comment on above: Performed By: #### B LDCX1 #### [facility] [address] [address] [address] Kayley Hatfield MCHC 29.3 g/dl Critically low 29.9-35.2 [facility] Comment on above: Performed By: #### B LDCX1 #### [facility] [address] [address] [address] Kayley Hatfield MCV 73.0 fL Critically low 81.0-99.0 [facility] Comment on above: Performed By: #### B LDCX1 #### [facility] [address] [place] [address] Dr. Kayley Hatfield METAMYELOCYTE # Normal [facility] Comment on above: Performed By: #### B LDCX1 #### [facility] [address] [place] [address] Dr. Kayley Hatfield METAMYELOCYTE % Normal [facility] Comment on above: Performed By: #### B LDCX1 #### [facility] [address] [place] [address] Dr. Kayley Hatfield MICROCYTOSIS SLIGHT Normal [facility] Comment on above: Performed By: #### B LDCX1 #### [facility] [address] [place] [address] Dr. Kayley Hatfield MONOM# 0.48 103/ul Normal 0.30-0.80 [facility] Comment on above: Performed By: #### B LDCX1 #### [facility] [address] [place] [address] Dr. Kayley Hatfield MONOM% 3.0 % Normal 1.7-12.0 [facility] Comment on above: Performed By: #### B LDCX1 #### [facility] [address] [place] [address] Dr. Kayley Hatfield MPV 8.9 fL Critically low 9.5-13.5 [facility] Comment on above: Performed By: #### B LDCX1 #### [facility] [address] [place] [address] Dr. Kayley Hatfield MYELOCYTE # Normal [facility] Comment on above: Performed By: #### B LDCX1 #### [facility] [address] [address] [address] Kayley Hatfield MYELOCYTE % Normal [facility] Comment on above: Performed By: #### B LDCX1 #### [facility] [address] [address] [address] Kayley Hatfield NRBC Normal [facility] Comment on above: Performed By: #### B LDCX1 #### [facility] [address] [address] [address] Kayley Hatfield PLT 243 103/ul Normal 150-450 [facility] Comment on above: Performed By: #### B LDCX1 #### [facility] [address] [place] [address] Dr. Kayley Hatfield RBC 4.26 106/ul Normal 4.20-5.40 [facility] Comment on above: Performed By: #### B LDCX1 #### [facility] [address] [place] [address] Dr. Kayley Hatfield RDW 27.1 % Critically high 11.0-15.0 [facility] Comment on above: Performed By: #### B LDCX1 #### [facility] [address] [place] [address] Dr. Kayley Hatfield SEG # 13.36 103/ul Critically high 1.40-6.50 [facility] Comment on above: Performed By: #### B LDCX1 #### [facility] [address] [place] [address] Dr. Kayley Hatfield SEG % 83.0 % Critically high 43.0-75.0 [facility] Comment on above: Performed By: #### B LDCX1 #### [facility] [address] [place] [address] Dr. Kayley Hatfield WBC 16.1 103/ul Critically high 4.0-11.0 [facility] Comment on above: Performed By: #### B LDCX1 #### [facility] [address] [place] [address] CHEST WO CONon [...] ASAEL MALDONADO Date: 2022-03-07 09:42 Normal [facility] HEMOGLOBIN AND HEMATOCRITon 03-07-2022 Hematocrit (Bld) [Volume fraction] 31.8 % Critically low 36.0-48.0 [facility] Comment on above: Performed By: #### H GBHCT #### [facility] [address] [address] [address] Kayley Hatfield Hemoglobin (Bld) [Mass/Vol] 9.5 g/dL Critically low 12.0-16.0 [facility] Comment on above: Performed By: #### H GBHCT #### [facility] [address] [address] [address] Kayley Hatfield RETICULOCYTEon 03-07-2022 RETIC 1.92 % Normal 0.60-3.10 [facility] Comment on above: Performed By: #### O BSCRN #### [facility] [address] [address] [address] Kayley Hatfield XR CHEST 1 Von [...] ASAEL MALDONADO Date: 2022-03-07 12:54 Normal [facility] XR CHEST 1 V EXAM: XR [...] ASAEL MALDONADO Date: 2022-03-07 07:10 Normal [facility] BNPon 03-06-2022 Natriuretic peptide B (Bld) [Mass/Vol] 441.0 pg/mL Normal <=900.0 [facility] Comment on above: Performed By: #### H GBHCT #### [facility] [address] [address] [address] Kayley Hatfield CBC AUTO DIFFon 03-06-2022 BASO # 0.1 103/ul Normal 0.0-0.1 [facility] Comment on above: Performed By: #### O BSCRN #### [facility] [address] [place] [address] Dr. Kayley Hatfield Basophils/100 WBC (Bld) 0.7 % Normal 0.2-2.0 [facility] Comment on above: Performed By: #### O BSCRN #### [facility] [address] [place] [address] Dr. Kayley Hatfield EO # 0.1 103/ul Normal 0.0-0.7 [facility] Comment on above: Performed By: #### O BSCRN #### [facility] [address] [place] [address] Dr. Kayley Hatfield Eosinophils/100 WBC (Bld) 0.7 % Critically low 0.9-7.0 [facility] Comment on above: Performed By: #### O BSCRN #### [facility] [address] [place] [address] Dr. Kayley Hatfield Erythrocyte distribution width (RBC) [Ratio] 20.0 % Critically high 11.0-15.0 [facility] Comment on above: Performed By: #### O BSCRN #### [facility] [address] [place] [address] Dr. Kayley Hatfield Hematocrit (Bld) [Volume fraction] 20.1 % Critically low 36.0-48.0 [facility] Comment on above: Performed By: #### O BSCRN #### [facility] [address] [place] [address] Dr. Kayley Hatfield Hemoglobin (Bld) [Mass/Vol] 4.9 g/dL Critically low 12.0-16.0 [facility] Comment on above: Performed By: #### O BSCRN #### [facility] [address] [place] [address] Dr. Kayley Hatfield IG # 0.12 10e3/ul Critically high 0.00-0.03 [facility] Comment on above: Performed By: #### O BSCRN #### [facility] [address] [place] [address] Dr. Kayley Hatfield IG % 0.8 % Critically high 0.0-0.5 [facility] Comment on above: Performed By: #### O BSCRN #### [facility] [address] [place] [address] Dr. Kayley Hatfield LYMPH # 1.0 103/ul Critically low 1.2-3.8 [facility] Comment on above: Performed By: #### O BSCRN #### [facility] [address] [place] [address] Dr. Kayley Hatfield Lymphocytes/100 WBC (Bld) 6.5 % Critically low 20.5-60.0 [facility] Comment on above: Performed By: #### O BSCRN #### [facility] [address] [place] [address] Dr. Kayley Hatfield MANUAL DIFF REQ NO Normal [facility] Comment on above: Performed By: #### O BSCRN #### [facility] [address] [place] [address] Dr. Kayley Hatfield MCH (RBC) [Entitic mass] 15.2 pg Critically low 26.7-34.0 [facility] Comment on above: Performed By: #### O BSCRN #### [facility] [address] [place] [address] Dr. Kayley Hatfield MCHC (RBC) [Mass/Vol] 24.4 g/dL Critically low 29.9-35.2 [facility] Comment on above: Performed By: #### O BSCRN #### [facility] [address] [place] [address] Dr. Kayley Hatfield MCV (RBC) [Entitic vol] 62.2 fL Critically low 81.0-99.0 [facility] Comment on above: Performed By: #### O BSCRN #### [facility] [address] [place] [address] Dr. Kayley Hatfield MONO # 0.5 103/ul Normal 0.3-0.8 [facility] Comment on above: Performed By: #### O BSCRN #### [facility] [address] [place] [address] Dr. Kayley Hatfield Monocytes/100 WBC (Bld) 3.5 % Normal 1.7-12.0 [facility] Comment on above: Performed By: #### O BSCRN #### [facility] [address] [address] [address] Kayley Hatfield NEUT # 13.2 103/ul Critically high 1.4-6.5 [facility] Comment on above: Performed By: #### O BSCRN #### [facility] [address] [place] [address] Dr. Kayley Hatfield Neutrophils/100 WBC (Bld) 87.8 % Critically high 43.0-75.0 [facility] Comment on above: Performed By: #### O BSCRN #### [facility] [address] [place] [address] Dr. Kayley Hatfield Platelet mean volume (Bld) [Entitic vol] 9.1 fL Critically low 9.5-13.5 [facility] Comment on above: Performed By: #### O BSCRN #### [facility] [address] [place] [address] Dr. Kayley Hatfield PLT 384 103/ul Normal 150-450 [facility] Comment on above: Performed By: #### O BSCRN #### [facility] [address] [place] [address] Dr. Kayley Hatfield RBC 3.23 106/ul Critically low 4.20-5.40 [facility] Comment on above: Performed By: #### O BSCRN #### [facility] [address] [place] [address] Dr. Kayley Hatfield WBC 15.1 103/ul Critically high 4.0-11.0 [facility] Comment on above: Performed By: #### O BSCRN #### [facility] [address] [place] [address] Dr. Kayley Hatfield CULTURE BLOODon 03-06-2022 Microscopic examination of blood, culture Culture Observations: NO GROWTH AT 5 DAYS. Normal [facility] Comment on above: Performed By: #### C VDTBH #### [facility] [address] [place] [address] Dr. Kayley Hatfield Performed By: #### B [id number] #### [facility] [address] [place] [address] Dr. Kayley Hatfield Covid-19 PCR (CVDTB)on 02-07 SARS-CoV-2 (COVID-19) RNA ELBA+probe Ql (Unsp spec) Not detected Normal NOT DETECTED [facility] Comment on above: Result Comment: When [...] for this test is supported by the [employer] of [employer] and Human Service's declaration that [...] used). Performed By: #### C VDTBH #### [facility] [address] [place] [address] Dr. Kayley Hatfield ER URINE PROFILEon Bilirubin Ql (U) Negative Normal NEGATIVE [facility] Comment on above: Performed By: #### P RBC #### [facility] [address] [place] [address] Dr. Kayley Hatfield Clarity (U) CLEAR Normal CLEAR [facility] Comment on above: Performed By: #### P RBC #### [facility] [address] [place] [address] Dr. Kayley Hatfield Color (U) LT. YELLOW Normal YELLOW [facility] Comment on above: Performed By: #### P RBC #### [facility] [address] [place] [address] Dr. Kayley Hatfield ERUAHD A micrscopic examination will be performed if indicated. Normal [facility] Comment on above: Performed By: #### P RBC #### [facility] [address] [place] [address] Dr. Kayley Hatfield Glucose Ql (U) Negative Normal NEGATIVE [facility] Comment on above: Performed By: #### P RBC #### [facility] [address] [address] [address] Kayley Hatfield Hemoglobin Ql (U) Negative Normal NEGATIVE [facility] Comment on above: Performed By: #### P RBC #### [facility] [address] [place] [address] Dr. Kayley Hatfield Ketones Ql (U) Negative Normal NEGATIVE [facility] Comment on above: Performed By: #### P RBC #### [facility] [address] [place] [address] Dr. Kayley Hatfield LEUKOCYTES Negative Normal NEGATIVE [facility] Comment on above: Performed By: #### P RBC #### [facility] [address] [place] [address] Dr. Kayley Hatfield Nitrite Ql (U) Negative Normal NEGATIVE [facility] Comment on above: Performed By: #### P RBC #### [facility] [address] [place] [address] Dr. Kayley Hatfield pH (U) 6.0 [pH] Normal 5-9 [facility] Comment on above: Performed By: #### P RBC #### [facility] [address] [place] [address] Dr. Kayley Hatfield SPEC GRAVITY 1.010 Normal 1.005-<=1.025 [facility] Comment on above: Performed By: #### P RBC #### [facility] [address] [place] [address] Dr. Kayley Hatfield UA PROTEIN Negative Normal NEGATIVE/ TRACE [facility] Comment on above: Performed By: #### P RBC #### [facility] [address] [place] [address] Dr. Kayley Hatfield UR MICRO IND NOT INDICATED Normal [facility] Comment on above: Performed By: #### P RBC #### [facility] [address] [place] [address] Dr. Kayley Hatfield Urobilinogen Qn (U) 0.2 {Lu'U}/dL Normal 0.2 - 1. 0 [facility] Comment on above: Performed By: #### P RBC #### [facility] [address] [place] [address] Dr. Kayley Hatfield FERRITINon 03-06-2022 Ferritin [Mass/Vol] 4.0 ng/mL Critically low 8.0-252.0 [facility] Comment on above: Performed By: #### O BSCRN #### [facility] [address] [place] [address] Dr. Kayley Hatfield IRON AND TIBCon 03-06-2022 % SATURATION 2.3 % Normal [facility] Comment on above: Performed By: #### C VDTBH #### [facility] [address] [place] [address] Dr. Kayley Hatfield Iron [Mass/Vol] 12.0 ug/dL Critically low 50.0-170.0 [facility] Comment on above: Performed By: #### C VDTBH #### [facility] [address] [place] [address] Dr. Kayley Hatfield TIBC DIRECT 532.0 ug/dL Critically high 250.0-450.0 [facility] Comment on above: Performed By: #### C VDTBH #### [facility] [address] [place] [address] Dr. Kayley Hatfield OCC BLD IMMUNO SCREENon 02-07 OCCULT BLOOD Negative Normal NEGATIVE [facility] Comment on above: Performed By: #### O BSCRN #### [facility] [address] [place] [address] Dr. Kayley Hatfield PROF 14(COMP METB)on 022 Albumin [Mass/Vol] 3.6 g/dL Normal 3.4-5.0 [facility] Comment on above: Performed By: #### H GBHCT #### [facility] [address] [place] [address] Dr. Kayley Hatfield Albumin/Globulin [Mass ratio] 1.2 {ratio} Normal [facility] Comment on above: Performed By: #### H GBHCT #### [facility] [address] [address] [address] Kayley Hatfield ALP [Catalytic activity/Vol] 71 U/L Normal 46-116 [facility] Comment on above: Performed By: #### H GBHCT #### [facility] [address] [address] [address] Kayley Hatfield ALT [Catalytic activity/Vol] 20 U/L Normal 14-59 [facility] Comment on above: Performed By: #### H GBHCT #### [facility] [address] [place] [address] Dr. Kayley Hatfield Anion gap [Moles/Vol] 9.8 mmol/L Normal [facility] Comment on above: Performed By: #### H GBHCT #### [facility] [address] [address] [address] Kayley Hatfield AST [Catalytic activity/Vol] 12 U/L Critically low 15-37 [facility] Comment on above: Performed By: #### H GBHCT #### [facility] [address] [place] [address] Dr. Kayley Hatfield Bilirubin [Mass/Vol] 0.4 mg/dL Normal 0.2-1.0 [facility] Comment on above: Performed By: #### H GBHCT #### [facility] [address] [address] [address] Kayley Hatfield Calcium [Mass/Vol] 9.0 mg/dL Normal 8.5-10.1 [facility] Comment on above: Performed By: #### H GBHCT #### [facility] [address] [place] [address] Dr. Kayley Hatfield Chloride [Moles/Vol] 99 mmol/L Normal 98-107 [facility] Comment on above: Performed By: #### H GBHCT #### [facility] [address] [place] [address] Dr. Kayley Hatfield CO2 [Moles/Vol] 31.5 mmol/L Normal 21.0-32.0 [facility] Comment on above: Performed By: #### H GBHCT #### [facility] [address] [address] [address] Kayley Hatfield Creatinine [Mass/Vol] 0.89 mg/dL Normal 0.55-1.02 [facility] Comment on above: Performed By: #### H GBHCT #### [facility] [address] [address] [address] Kayley Hatfield EGFR-AF MARTINIQUAIS >60 Normal >=60 [facility] Comment on above: Performed By: #### H GBHCT #### [facility] [address] [address] [address] Kayley Hatfield EGFR-NON AF MARTINIQUAIS >60 Normal >=60 [facility] Comment on above: Performed By: #### H GBHCT #### [facility] [address] [address] [address] Kayley Hatfield Globulin (S) [Mass/Vol] 3.1 g/dL Normal [facility] Comment on above: Performed By: #### H GBHCT #### [facility] [address] [address] [address] Kayley Hatfield Glucose [Mass/Vol] 174 mg/dL Critically high 74-106 T [facility] Comment on above: Performed By: #### H GBHCT #### [facility] [address] [address] [address] Kayley Hatfield Potassium [Moles/Vol] 4.3 mmol/L Normal 3.5-5.1 [facility] Comment on above: Performed By: #### H GBHCT #### [facility] [address] [address] [address] Kayley aHtfield Protein [Mass/Vol] 6.7 g/dL Normal 6.4-8.2 [facility] Comment on above: Performed By: #### H GBHCT #### [facility] [address] [address] [address] Kayley Hatfield Sodium [Moles/Vol] 136 mmol/L Normal 136-145 [facility] Comment on above: Performed By: #### H GBHCT #### [facility] [address] [address] [address] Kayley Hatfield Urea nitrogen [Mass/Vol] 17.0 mg/dL Normal 7.0-18.0 [facility] Comment on above: Performed By: #### H GBHCT #### [facility] [address] [id number] [address] Kayley Hatfield Urea nitrogen/Creatinine [Mass ratio] 19.1 mg/mg Normal [facility] Comment on above: Performed By: #### H GBHCT #### [facility] [address] [place] [address] Dr. Kayley Hatfield TROPONIN, HIGH SENSITIVITYon 03-06-2022 HSTROP 7.0 pg/mL Normal 4.0-51.3 [facility] Comment on above: Result Comment: CUT- OFF POINTS HAVE BEEN ESTABLISHED BASED ON THE FOURTH UNIVERSAL DEFINITIONS OF MYOCARDIAL INFARCTION. THE UPPER REFERENCE LIMIT (URL) OF TROPONIN, DEFINED THE 99TH PERCENTILE OF cTnI DISTRIBUTION IN A REFERENCE POPULATION, HAS BEEN CONFIRMED THE DECISION THRESHOLD FOR [place] DIAGNOSIS. Performed By: #### H GBHCT #### [facility] [address] [place] [address] Dr. Kayley Hatfield TYPE AND SCREENon 03-06-2022 TYPE AND SCREEN Negative Normal [facility] Comment on above: Performed By: #### C VDTBH #### [facility] [address] [place], [place] [id number] Dr. Kayley Hatfield XR CHEST 1 Von [...] MIGUE REYNOSO Date: 2022-03-06 16:10 Normal [facility] XR CHEST 1 V EXAMINATION: XR [...] MIGUE REYNOSO Date: 2022-03-06 14:39 Normal [facility] XR DEXA BONE DENSITYon 12-22 XR [...] MIGUE REYNOSO Date: 2021-12-22 17:05 Normal [facility] CARDIAC ABDIAZIZ ADMITon 022 CK [Catalytic activity/Vol] 21 U/L Critically low 26-192 [facility] Comment on above: Performed By: #### B [id number] #### [facility] [address] [place] [address] Dr. Kayley Hatfield CK.MB [Mass/Vol] 1.00 ng/mL Normal <=3.60 [facility] Comment on above: Performed By: #### B [id number] #### [facility] [address] [place] [address] Dr. Kayley Hatfield HSTROP 11.6 pg/mL Normal 4.0-51.3 [facility] Comment on above: Result Comment: CUT- OFF POINTS HAVE BEEN ESTABLISHED BASED ON THE FOURTH UNIVERSAL DEFINITIONS OF MYOCARDIAL INFARCTION. THE UPPER REFERENCE LIMIT (URL) OF TROPONIN, DEFINED THE 99TH PERCENTILE OF cTnI DISTRIBUTION IN A REFERENCE POPULATION, HAS BEEN CONFIRMED THE DECISION THRESHOLD FOR [place] DIAGNOSIS. Performed By: #### B [id number] #### [facility] [address] [place] [address] Dr. Kayley Hatfield ROD 48 ng/mL Normal 9-82 [facility] Comment on above: Performed By: #### B [id number] #### [facility] [address] [place] [address] Dr. Kayley Hatfield CBC AUTO DIFFon 12-14-2021 BASO # 0.1 103/ul Normal 0.0-0.1 [facility] Comment on above: Performed By: #### P RBC #### [facility] [address] [place] [address] Dr. Kayley Hatfield Basophils/100 WBC (Bld) 0.9 % Normal 0.2-2.0 [facility] Comment on above: Performed By: #### P RBC #### [facility] [address] [place] [address] Dr. Kayley Hatfield EO # 0.1 103/ul Normal 0.0-0.7 [facility] Comment on above: Performed By: #### P RBC #### [facility] [address] [place] [address] Dr. Kayley Hatfield Eosinophils/100 WBC (Bld) 0.5 % Critically low 0.9-7.0 [facility] Comment on above: Performed By: #### P RBC #### [facility] [address] [place] [address] Dr. Kayley Hatfield Erythrocyte distribution width (RBC) [Ratio] 15.4 % Critically high 11.0-15.0 [facility] Comment on above: Performed By: #### P RBC #### [facility] [address] [place] [address] Dr. Kayley Hatfield Hematocrit (Bld) [Volume fraction] 29.3 % Critically low 36.0-48.0 [facility] Comment on above: Performed By: #### P RBC #### [facility] [address] [place] [address] Dr. Kayley Hatfield Hemoglobin (Bld) [Mass/Vol] 8.3 g/dL Critically low 12.0-16.0 [facility] Comment on above: Performed By: #### P RBC #### [facility] [address] [place] [address] Dr. Kayley Hatfield IG # 0.05 10e3/ul Critically high 0.00-0.03 [facility] Comment on above: Performed By: #### P RBC #### [facility] [address] [place] [address] Dr. Kayley Hatfield IG % 0.4 % Normal 0.0-0.5 [facility] Comment on above: Performed By: #### P RBC #### [facility] [address] [place] [address] Dr. Kayley Hatfield LYMPH # 1.2 103/ul Normal 1.2-3.8 [facility] Comment on above: Performed By: #### P RBC #### [facility] [address] [place] [address] Dr. Kayley Hatfield Lymphocytes/100 WBC (Bld) 10.6 % Critically low 20.5-60.0 [facility] Comment on above: Performed By: #### P RBC #### [facility] [address] [place] [address] Dr. Kayley Hatfield MANUAL DIFF REQ NO Normal [facility] Comment on above: Performed By: #### P RBC #### [facility] [address] [place] [address] Dr. Kayley Hatfield MCH (RBC) [Entitic mass] 21.4 pg Critically low 26.7-34.0 [facility] Comment on above: Performed By: #### P RBC #### [facility] [address] [address] [address] Kayley Hatfield MCHC (RBC) [Mass/Vol] 28.3 g/dL Critically low 29.9-35.2 [facility] Comment on above: Performed By: #### P RBC #### [facility] [address] [address] [address] Kayley Hatfield MCV (RBC) [Entitic vol] 75.5 fL Critically low 81.0-99.0 [facility] Comment on above: Performed By: #### P RBC #### [facility] [address] [address] [address] Kayley Hatfield MONO # 0.9 103/ul Critically high 0.3-0.8 [facility] Comment on above: Performed By: #### P RBC #### [facility] [address] [address] [address] Kayley Hatfield Monocytes/100 WBC (Bld) 7.6 % Normal 1.7-12.0 [facility] Comment on above: Performed By: #### P RBC #### [facility] [address] [address] [address] Kayley Hatfield NEUT # 9.2 103/ul Critically high 1.4-6.5 [facility] Comment on above: Performed By: #### P RBC #### [facility] [address] [address] [address] Kayley Hatfield Neutrophils/100 WBC (Bld) 80.0 % Critically high 43.0-75.0 [facility] Comment on above: Performed By: #### P RBC #### [facility] [address] [address] [address] Kayley Hatfield Platelet mean volume (Bld) [Entitic vol] 9.3 fL Critically low 9.5-13.5 [facility] Comment on above: Performed By: #### P RBC #### [facility] [address] [address] [address] Kayley Hatfield PLT 498 103/ul Critically high 150-450 [facility] Comment on above: Performed By: #### P RBC #### [facility] [address] [place] [address] Dr. Kayley Hatfield RBC 3.88 106/ul Critically low 4.20-5.40 [facility] Comment on above: Performed By: #### P RBC #### [facility] [address] [address] [address] Kayley Hatfield WBC 11.5 103/ul Critically high 4.0-11.0 [facility] Comment on above: Performed By: #### P RBC #### [facility] [address] [place] [address] Dr. Kayley Hatfield ER URINE PROFILEon 2 Bilirubin Ql (U) Negative Normal NEGATIVE [facility] Comment on above: Performed By: #### H GBHCT #### [facility] [address] [place] [address] Dr. Kayley Hatfield Clarity (U) CLEAR Normal CLEAR [facility] Comment on above: Performed By: #### H GBHCT #### [facility] [address] [place] [address] Dr. Kayley Hatfield Color (U) LT. YELLOW Normal YELLOW [facility] Comment on above: Performed By: #### H GBHCT #### [facility] [address] [place] [address] Dr. Kayley [place] A micrscopic examination will be performed if indicated. Normal [facility] Comment on above: Performed By: #### H GBHCT #### [facility] [address] [place] [address] Dr. Kayley Hatfield Glucose Ql (U) Negative Normal NEGATIVE [facility] Comment on above: Performed By: #### H GBHCT #### [facility] [address] [place] [address] Dr. Kayley Hatfield Hemoglobin Ql (U) TRACE-INTACT Abnormal NEGATIVE [facility] Comment on above: Performed By: #### H GBHCT #### [facility] [address] [place] [address] Dr. Kayley Hatfield Ketones Ql (U) Negative Normal NEGATIVE [facility] Comment on above: Performed By: #### H GBHCT #### [facility] [address] [place] [address] Dr. Kayley Hatfield LEUKOCYTES Negative Normal NEGATIVE [facility] Comment on above: Performed By: #### H GBHCT #### [facility] [address] [address] [address] Kayley Hatfield Nitrite Ql (U) Negative Normal NEGATIVE [facility] Comment on above: Performed By: #### H GBHCT #### [facility] [address] [place] [address] Dr. Kayley Hatfield pH (U) 6.5 [pH] Normal 5-9 [facility] Comment on above: Performed By: #### H GBHCT #### [facility] [address] [place] [address] Dr. Kayley Hatfield SPEC GRAVITY 1.015 Normal 1.005-<=1.025 [facility] Comment on above: Performed By: #### H GBHCT #### [facility] [address] [place] [address] Dr. Kayley Hatfield UA PROTEIN Negative Normal NEGATIVE/ TRACE [facility] Comment on above: Performed By: #### H GBHCT #### [facility] [address] [place] [address] Dr. Kayley Hatfield UR MICRO IND INDICATED Normal [facility] Comment on above: Performed By: #### H GBHCT #### [facility] [address] [place] [address] Dr. Kayley Hatfield Urobilinogen Qn (U) 0.2 {Lu'U}/dL Normal 0.2 - 1. 0 [facility] Comment on above: Performed By: #### H GBHCT #### [facility] [address] [place] [address] Dr. Kayley Hatfield PROF 14(COMP METB)on 022 Albumin [Mass/Vol] 3.2 g/dL Critically low 3.4-5.0 [facility] Comment on above: Performed By: #### B LDCX1 #### [facility] [address] [address] [address] Kayley Hatfield Albumin/Globulin [Mass ratio] 0.8 {ratio} Normal [facility] Comment on above: Performed By: #### B LDCX1 #### [facility] [address] [address] [address] Kayley Hatfield ALP [Catalytic activity/Vol] 72 U/L Normal 46-116 [facility] Comment on above: Performed By: #### B LDCX1 #### [facility] [address] [address] [address] Kayley Hatfield ALT [Catalytic activity/Vol] 24 U/L Normal 14-59 [facility] Comment on above: Performed By: #### B [id number] #### [facility] [address] [place] [address] Dr. Kayley Hatfield Anion gap [Moles/Vol] 13.0 mmol/L Normal [facility] Comment on above: Performed By: #### B LDCX1 #### [facility] [address] [place] [address] Dr. Kayley Hatfield AST [Catalytic activity/Vol] 18 U/L Normal 15-37 [facility] Comment on above: Performed By: #### B [id number] #### [facility] [address] [place] [address] Dr. Kayley Hatfield Bilirubin [Mass/Vol] 0.3 mg/dL Normal 0.2-1.0 [facility] Comment on above: Performed By: #### B [id number] #### [facility] [address] [place] [address] Dr. Kayley Hatfield Calcium [Mass/Vol] 9.9 mg/dL Normal 8.5-10.1 [facility] Comment on above: Performed By: #### B [id number] #### [facility] [address] [place] [address] Dr. Kayley Hatfield Chloride [Moles/Vol] 98 mmol/L Normal 98-107 [facility] Comment on above: Performed By: #### B [id number] #### [facility] [address] [address] [address] Kayley Hatfield CO2 [Moles/Vol] 29.8 mmol/L Normal 21.0-32.0 [facility] Comment on above: Performed By: #### B [id number] #### [facility] [address] [address] [address] Kayley Hatfield Creatinine [Mass/Vol] 1.23 mg/dL Critically high 0.55-1.02 [facility] Comment on above: Performed By: #### B [id number] #### [facility] [address] [address] [address] Kayley Hatfield EGFR-AF MARTINIQUAIS 53 mL/min/1.73m2 Critically low >=60 [facility] Comment on above: Performed By: #### B [id number] #### [facility] [address] [place] [address] Dr. Kayley Hatfield EGFR-NON AF MARTINIQUAIS 44 mL/min/1.73m2 Critically low >=60 [facility] Comment on above: Performed By: #### B LDCX1 #### [facility] [address] [address] [address] Kayley Hatfield Globulin (S) [Mass/Vol] 3.9 g/dL Normal [facility] Comment on above: Performed By: #### B LDCX1 #### [facility] [address] [address] [address] Kayley Hatfield Glucose [Mass/Vol] 160 mg/dL Critically high 74-106 [facility] Comment on above: Performed By: #### B LDCX1 #### [facility] [address] [address] [address] Kayley Hatfield Potassium [Moles/Vol] 3.8 mmol/L Normal 3.5-5.1 [facility] Comment on above: Performed By: #### B LDCX1 #### [facility] [address] [address] [address] Kayley Hatfield Protein [Mass/Vol] 7.1 g/dL Normal 6.4-8.2 [facility] Comment on above: Performed By: #### B LDCX1 #### [facility] [address] [address] [address] Kayley Hatfield Sodium [Moles/Vol] 137 mmol/L Normal 136-145 [facility] Comment on above: Performed By: #### B LDCX1 #### [facility] [address] [address] [address] Kayley Hatfield Urea nitrogen [Mass/Vol] 20.0 mg/dL Critically high 7.0-18.0 [facility] Comment on above: Performed By: #### B LDCX1 #### [facility] [address] [address] [address] Kayley Hatfield Urea nitrogen/Creatinine [Mass ratio] 16.3 mg/mg Normal [facility] Comment on above: Performed By: #### B LDCX1 #### [facility] [address] [place] [address] Dr. Kayley Hatfield TROPONIN, HIGH SENSITIVITYon 12-14-2021 HSTROP 11.3 pg/mL Normal 4.0-51.3 [facility] Comment on above: Result Comment: CUT- OFF POINTS HAVE BEEN ESTABLISHED BASED ON THE FOURTH UNIVERSAL DEFINITIONS OF MYOCARDIAL INFARCTION. THE UPPER REFERENCE LIMIT (URL) OF TROPONIN, DEFINED THE 99TH PERCENTILE OF cTnI DISTRIBUTION IN A REFERENCE POPULATION, HAS BEEN CONFIRMED THE DECISION THRESHOLD FOR [place] DIAGNOSIS. Performed By: #### P RTELEC #### [facility] [address] [place] [address] Dr. Kayley Hatfield URINE MICROSCOPIC ONLYon BACTERIA NONE SEEN Normal NONE SEEN [facility] Comment on above: Performed By: #### H GBHCT #### [facility] [address] [place] [address] Dr. Kayley Hatfield Bacteria identified Cx Nom (U) NOT INDICATED Normal [facility] Comment on above: Performed By: #### H GBHCT #### [facility] [address] [place] [address] Dr. Kayley Hatfield CAST SEEN Abnormal NONE SEEN [facility] Comment on above: Performed By: #### H GBHCT #### [facility] [address] [address] [address] Kayley Hatfield Crystals LM Nom (Urine sed) NONE SEEN Normal NONE SEEN [facility] Comment on above: Performed By: #### H GBHCT #### [facility] [address] [address] [address] Kayley Hatfield Epithelial cells LM Ql (Urine sed) FEW Abnormal NONE SEEN /RARE [facility] Comment on above: Performed By: #### H GBHCT #### [facility] [address] [place] [address] Dr. Kayley Hatfield HYALINE CAST RARE Normal [facility] Comment on above: Performed By: #### H GBHCT #### [facility] [address] [place] [address] Dr. Kayley Hatfield MUCOUS NONE SEEN Normal NONE SEEN [facility] Comment on above: Performed By: #### H GBHCT #### [facility] [address] [place] [address] Dr. Kayley Hatfield RBC 0-2 Normal 0-2 [facility] Comment on above: Performed By: #### H GBHCT #### [facility] [address] [place] [address] Dr. Kayley Hatfield WBC 0-2 Abnormal NONE SEEN [facility] Comment on above: Performed By: #### H GBHCT #### [facility] [address] [place] [address] Dr. Kayley Hatfield XR CHEST 1 Von [...] ASAEL MALDONADO Date: 2021-12-14 13:43 Normal [facility] BUNon 12-12-2021 Urea nitrogen [Mass/Vol] 15.0 mg/dL Normal 7.0-18.0 [facility] Comment on above: Performed By: #### P RBC #### [facility] [address] [place] [address] Dr. Kayley Hatfield CALCIUMon 12-12-2021 Calcium [Mass/Vol] 9.1 mg/dL Normal 8.5-10.1 [facility] Comment on above: Performed By: #### C VDTBH #### [facility] [address] [place] [address] Dr. Kayley Hatfield CREATININEon 12-12-2021 Creatinine [Mass/Vol] 1.05 mg/dL Critically high 0.55-1.02 [facility] Comment on above: Performed By: #### P RBC #### [facility] [address] [place] [address] Dr. Kayley Hatfield EGFR-AF MARTINIQUAIS >60 Normal >=60 [facility] Comment on above: Performed By: #### P RBC #### [facility] [address] [place] [address] Dr. Kayley Hatfield EGFR-NON AF MARTINIQUAIS 53 mL/min/1.73m2 Critically low >=60 [facility] Comment on above: Performed By: #### P RBC #### [facility] [address] [place] [address] Dr. Kayley Hatfield CRPon 12-12-2021 CRP [Mass/Vol] mg/L Normal <=1.0 [facility] Comment on above: Performed By: #### P RBC #### [facility] [address] [place] [address] Dr. Kayley Hatfield MAGNESIUMon 12-12-2021 Magnesium [Mass/Vol] 1.9 mg/dL Normal 1.8-2.4 [facility] Comment on above: Performed By: #### C VDTBH #### [facility] [address] [place] [address] Dr. Kayley Hatfield PHOSPHORUSon 12-12-2021 Phosphate [Mass/Vol] 4.1 mg/dL Normal 2.6-4.7 [facility] Comment on above: Performed By: #### C VDTBH #### [facility] [address] [address] [address] Kayley Hatfield SED RATE [facility] 2021 SED RATE 35 mm/hr Critically high <=30 [facility] Comment on above: Performed By: #### P RTELEC #### [facility] [address] [address] [address] Kayley Hatfield Vital Signs Date Time Vital Sign Value Performing Clinician Faci lity 06-26-2023 15:27-0500 Diastolic blood pressure 103 mm[Hg] MD Erasto Burroughs Work Phone: [facility] 06-26-2023 15:27-0500 Heart rate 81 /min MD Erasto Burroughs Work Phone: [facility] 06-26-2023 15:27-0500 Respiratory rate 18 /min MD Erasto Burroughs Work Phone: [facility] 06-26-2023 15:27-0500 SaO2% (BldA) [Mass fraction] 95 % MD Erasto Burroughs Work Phone: [facility] 06-26-2023 15:27-0500 Systolic blood pressure 162 mm[Hg] MD Erasto Burroughs Work Phone: [facility] 06-26-2023 13:44-0500 Body height 162.56 cm MD Erasto Burroughs Work Phone: [facility] 06-26-2023 13:44-0500 Body weight 59.87 kg MD Erasto Burroughs Work Phone: [facility] 06-26-2023 13:44-0500 Inhaled oxygen flow rate 2 L/min MD Erasto Burroughs Work Phone: [facility] Encounters Encounter Date Encounter Type Care Provider Facility Start: 05-12-2024 ambulatory Ihsan Smiley ty:[facility] Start: 01-07-2024 End: 01-07-2024 ambulatory [facility] Start: 11-09-2023 End: 11-10-2023 ambulatory Ihsan BROWN Facility:[facility] Start: 08-18-2023 Refill Erasto Leggett Work Phone: [facility] Comment on above: DDD (degenerative di sc disease), lumbar (Primary Dx) Start: 06-27-2023 ambulatory [facility] Start: 06-26-2023 End: 06-26-2023 ambulatory Remy Blissjace Facility:[facility] Start: 06-26-2023 End: 06-26-2023 Admission to same day surgery center MD Erasto Burroughs Work Phone: [facility] Work Phone: Start: 06-26-2023 End: 06-26-2023 ambulatory MD Erasto Burroughs Work Phone: [facility] Work Phone: Start: 06-14-2023 End: 06-14-2023 ambulatory SHAIKH HUMA Not Available Start: 06-05-2023 Evaluation and management of inpatient KONG CHRISTOFER [facility] Start: 06-05-2023 Evaluation and management of inpatient [facility] Start: 06-05-2023 Evaluation and management of inpatient NOLINWOODKRISTAN [facility] Start: 06-04-2023 End: 06-06-2023 Evaluation and management of inpatient AVINASH MARMOLEJOCHRIS [facility] Start: 05-15-2023 ambulatory Iman Jeter Facility:[facility] Start: 04-16-2023 End: 04-17-2023 ambulatory Ihsan BROWN Facility:[facility] Start: 10-31-2022 End: 11-01-[address] ERASTO BURROUGHS Facility:[facility] Start: 10-10-2022 End: 10-11-[address] ERASTO BURROUGSH Facility:[facility] Start: 05-01-2022 End: 05-02-[address] ERASTO BURROUGHS Facility:[facility] Start: 05-01-[address] ERASTO BURROUGHS Facil ity:[facility] Start: 04-25-2022 End: 04-26-[address] ERASTO BURROUGHS Facility:[facility] Start: 04-04-2022 Encounter for genera l adult medical examination without abnormal findings DR ERASTO BURROUGHS [facility] Start: 03-30-[address] ERASTO BURROUGHS Facil ity:[facility] Start: 03-29-2022 Encounter for genera l adult medical examination without abnormal findings DR ERASTO BURROUGHS [facility] Start: 03-28-2022 End: 03-30-2022 Evaluation and management of inpatient DR ERASTO BURROUGHS Facility:[facility] Start: 03-28-2022 End: 03-29-[address] ERASTO BURROUGHS Facility:[facility] Start: 03-28-2022 End: 03-29-2022 Encounter for general adult medical examination without abnormal findings DR ERASTO BURROUGHS Facility:[facility] Start: 03-08-2022 End: 03-15-2022 Evaluation and management of inpatient VALERIO ALI Facility:[facility] Start: 03-06-2022 End: 03-08-2022 Evaluation [...] 09-05-2023 Hemoglobin A1c measurement Diabetes: Hemoglobin A1C [facility] Start: 08-27-2023 End: 08-27-2023 Patient encounter procedure 08/27/2023 2:30 PM EST Office Visit [facility] [address] [place] [id number] Erasto Burroughs MD [address] [place] [address] [facility] Start: 06-26-2023 [facility] Start: 03-09-2023 Influenza vaccination Influenza Vacc ine (#1) [facility] Start: 1997 Screening for malign ant neoplasm of breast Mammogram [facility] Start: 1976 Urine screening for protein Diabetes: Urine Protein Screening [facility] Start: 1967 Glaucoma screening Diabetes: R etinopathy Screening [facility] Start: 1957 Screening for malign ant neoplasm of colon [facility] Patient Education Esophageal Dilation [facility] Work Phone: Payers Date Payer Category Payer Medicare [id number] 2023 Self-pay [id number] 2022 Unknown [employer] [id number] 2022-Present [phone] [address] [address] [place] [address] [id number] 2013 Medicare MEDICARE MEDICAR E PART B [id number] 2013-[place] [address] Medicare [id number] 1959 Medicare [id number] 1959 Unknown [id number] 1959 Unknown [id number] 1957 Unknown [id number] 2.16.840.1.863405.3.579.2.64 7 1957 Unknown [id number] 2.16.840.1.782638.3.579.2.59 3 1957 Unknown [id number] 2.16.840.1.609602.3.579.2.59 3 1957 Unknown [id number] 2.16.840.1.702540.3.579.2.59 3 1957 Unknown [id number] 2.16.840.1.148955.3.579.2.59 3 1957 Unknown [id number] 2.16.840.1.811090.3.579.2.59 3 1957 Unknown [id number] 2.16.840.1.996362.3.579.2.59 3 1957 Unknown [id number] 2.16.840.1.252584.3.579.2.59 3 1957 Unknown [id number] 2.16.840.1.737592.3.579.2.59 3 1957 Unknown [id number] 2.16.840.1.225031.3.579.2.59 3 1957 Unknown [id number] 2.16.840.1.936443.3.579.2.59 3 1957 Unknown [id number] 2.16.840.1.015748.3.579.2.59 3 1957 Unknown [id number] 2.16.840.1.722967.3.579.2.59 3 1957 Unknown [id number] 2.16.840.1.527873.3.579.2.59 3 1957 Unknown [id number] 2.16.840.1.819976.3.579.2.12 59 1957 Unknown [id number] 2.16.840.1.832188.3.579.2.72 7 1957 Unknown [id number] 2.16.840.1.967052.3.579.2.72 7 1957 Unknown [id number] 2.16.840.1.417249.3.579.2.72 7 1957 Unknown [id number] 2.16.840.1.561296.3.579.2.72 7 Unknown [id number] 2.16.840.1.072091.3.579.2.53 1 Social History Date Type Detail Facility Start: 06-14-2023 End: 06-26-2023 Tobacco smoking status MDIS Ex-smoker (finding) [facility] Start: 1955 Sex Assigned At Female F [facility] End: 03-06-2022 History of tobacco use Current [...] Note Facility 01-07-2024 Note [facility] Subjective Lise Canales is a 68 y.o. year old female patient being seen for 6 mo follow up CAD and hypertension. 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 On 06/04/2023 she was admitted to [facility] transferred from the [facility] due to pneumonia. In that setting she was found to have minimally elevated troponin. Her echocardiogram and EKG were nonrevealing. She was discharged on medical therapy. In December 2023 she was admitted to the [facility] with pneumonia and sepsis. In that [...] respiratory distress. Breath (more content not included)... [facility] 06-27-2023 Note [place] [facility] Subjective Lise Easton Covert is a 68 y.o. year old female patient being seen for follow up [facility] for NSTEMI. 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 On 06/04/2023 she was admitted to [facility] transferred from the [facility] due to pneumonia. In that setting [...] Judgment normal. All (more content not included)... [facility] 06-26-2023 Procedure note [facility] 06-06-2023 Note Hospital Medicine Discharge Summary Final Discharge Diagnosis: Community acquired pneumonia of right lower lobe of lung Admission Diagnosis: NSTEMI (non-ST elevated myocardial infarction) ([facility]) [I21.4] Hospital course: 68 years old female lady with a medical history of hypertension, hyperlipidemia, gastroesophageal reflux disease, carotid disease, fibromyalgia, arthritis, polymyalgia rheumatica, COPD, temporal arteritis, and psoriasis. Came into the [facility] ER as a transfer from [facility] for concern of chest pain and [...] Center 06/27/2023 3:45 PM Jer Neff MD [facility] Your medication list START taking these medications [...] HYDROcodone-acetaminophen 5-325 mg tablet Commonly known as: [place] melatonin 5 mg tablet metoprolol tartrate 25 [...] Your Medications These medications were sent to [id number] - [address] AT [address] [address] cefdinir 300 mg capsule doxycycline 100 mg capsule Lise is allergic to azithromycin and latex. Disposition: [place]-[facility] [place] [facility] [place] Condition: Stable Code Status: Prior Diagnostic Results Hematology: Results from last 7 days Lab Units 06/06/23 0547 06/05/23 03006/05/23 030 WBC AUTO 10*3/uL 10.31 -- 17.28* HEMOGLOBIN g/dL 9.6* -- 11.6* HEMATOCRIT % 28.7* -- 35.8* MCV fL 84.4 -- 87.3 PLATELETS AUTO 10*3/uL 522* -- 517* INR -- 1.25* -- Chemistry: Results from last 7 days Lab Units 06/06/23 0506/05/23 030 SODIUM mmol/L 130* 133* POTASSIUM mmol/L 3.9 [...] rhythm. Lungs: C (more content not included)... 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 Yes [...] Yes Type of Residence/Post Acute Needs Private residence;[facility] Is PT/OT appropriate? No Is PT/OT ordered? No Is SW consult appropriate? Yes Is SW consult ordered? Yes Do you understand the benefits of MyChart? Yes Were you able to send link and activate MyChart? MyChart already active [facility] 06-05-2023 Note . Hospital Medicine History and Physical 06/05/2023 1:22 AM THE HOSPITALIST TEAM PREFERS TO USE [email or web address] FOR COMMUNICATION 7AM-7PM. IF I DO NOT RESPOND WITHIN 15 MINUTES, PLEASE PAGE ME/CALL THROUGH THE PLIER WORKER. FROM 7PM-7AM, PLEASE PAGE [phone](COVR) Chief Complaint No chief complaint on file. History of Present Illness Lise Canales is an 68 y.o. female who came from home with NSTEMi. This is a 68 years old female lady with a medical history of hypertension, hyperlipidemia, gastroesophageal reflux disease, carotid disease, fibromyalgia, arthritis, polymyalgia rheumatica, COPD, temporal arteritis, and psoriasis. Came into the [facility] ER as a transfer from [facility] for concern of chest pain and [...] Date Noted NSTEMI (non-ST elevated myocardial infarction) ([facility]) 06/05/2023 Acute on chronic respiratory failure with hypoxia ([facility]) 04/01/2022 Anemia, unspecified 04/01/2022 Recurrent spontaneous pneumothorax 03/30/2022 Giant cell arteritis with polymyalgia rheumatica ([facility]) 10/11/2021 Pneumothorax on left 08/02/2016 Coronary atherosclerosis 06/15/2014 Dyslipidemia 06/15/2014 Status post percutaneous transluminal coronary angioplasty 06/15/2014 Angina pectoris ([facility]) 05/04/2014 Electrocardiogram abnormal 05/04/2014 Abdominal pain 04/24/2014 Altered mental status 04/24/2014 Benign essential hypertension 04/24/2014 Congestive heart failure ([facility]) 04/24/2014 Dyspnea 04/24/2014 Gastroesophageal reflux disease 04/24/2014 History of psychiatric disorder 04/24/2014 Hyperlipidemia 04/24/2014 Headache 04/24/2014 Raynaud's disease 04/24/2014 Other and unspecified noninfectious gastroenteritis and colitis(558.9) 05/15/2007 Candidiasis of mouth 04/17/2007 COPD (chronic obstructive pulmonary disease) ([facility]) 04/17/2007 Diarrhea 04/17/2007 Loss of weight 04/17/2007 Other psoriasis 04/17/2007 Psoriatic arthropathy ([facility]) 04/17/2007 Other pneumothorax 03/30/2022 Assessment and Plan [...] over 92 -Scheduled (more content not included)... [facility] 03-15-2022 Note MR#: [id number] I [facility] Pt. Name: Lise Canales Admitted: 03/08/2022 [...] a 66-year-old female, who presented to the [facility] with shortness of breath and fatigue, [...] The patient was subsequently transferred to for [facility] for further workup, was admitted [...] P/Augustin Penn MD Date Trans: 03/15/2022 04:48 P/gabriela [id number] cc: Erasto Burroughs M.D. [address] [facility] [address] [facility] 03-13-2022 Note MR#: [id number] I [facility] Pt. Name: Lise Canales Admitted: 03/08/2022 [...] Pineda MD Date Trans: 03/13/2022 10:30 A/gabriela [id number] cc: Erast[facility]roughs M.D. [address] [facility] [address] [facility] 03-09-2022 Note MR#: [id number] I [facility] Pt. Name: Lise Canales Admitted: 03/05/2020 [...] gastritis, Helicobacter pylori infection, who presented to [facility] Emergency Department complaining of sudden [...] appointment with the primary care provider through [facility] for close followup for her anxiety [...] 2 to 4 weeks. Follow up at [facility] on 03/16/2022 at 9:50 a.m. [...] from me. Date Dict: 03/08/2022/03:04 P/Paulette Mccord WAREHOUSE ATTENDANT Date Trans: 03/09/2022 11:21 A/gabriela [id number] cc: Marti Poole M.D. [address] [facility] [id number] Erasto Burroughs M.D. [address] [place] [address] [facility] Evaluation note No assessment inform ation available [facility] Work Phone: Evaluation note Diagnosis DDD (degenerative disc disease), lumbar- Primary Degeneration of lumbar or lumbosacral intervertebral disc documented in this encounter [facility] Author Remy Givens [facility] June 26, 2023 2:44pm Note Date/Time June 26, 2023 2:44pm [facility] [address] [place] [address] Gastroenterology H&P Signed Patient: Lise Canales MR#: [id number] : 1955 Acct:[id number] Age/Sex: 68 / F Adm Date: 3 Loc: Room: Type: [facility] Attending Dr: Remy Givens MD [...] Givens MD Documented By: Remy Givens MD 06/26/231442 Signed By: <Electronically signed by Remy Givens MD> 06/26/23 9424 [facility] Work Phone: Hospital Discharge instructions Additional Instructions [...] NOT operate machinery such as power tools, [employer] mowers, [employer], sewing machines, etc. for 24 hours. - [...] problems. -Follow up with PCP. -Office number [phone].[facility] Work Phone: Summary Purpose Family History [...] and content) DATE CREATED AUTHOR 04/11/2022 [facility] DATE CREATED AUTHOR AUTHOR'S ORGANIZ ATION 11/04/2022 [facility] DATE CREATED AUTHOR AUTHOR'S ORGANIZ ATION 06/17/2023 [facility] EPIC DATE CREATED AUTHOR AUTHOR'S ORGANIZ ATION 07/10/2023 [facility] DATE CREATED AUTHOR AUTHOR'S ORGANIZ ATION 11/13/2023 Inez Dubois [facility] [facility] DATE CREATED AUTHOR AUTHOR'S ORGANIZ ATION 02/14/2024 [facility] Care Teams (unrecognized sec tion and content) Team Status: Active Member Role Status Dates Erasto Burroughs MD Primary Care Provider Active Team Status: Inactive Member Role Status Dates Erasto Burroughs MD Primary Care Provider Active Remy Givens MD Attending Provider Active Final Inspector [employer]cy[employer] Relationship Specialty Start Date End Date Erasto [...] BE BASED ON THE PRIMARY CLINICAL RECORDS. [employer] provides no warranty or guarantee of the accuracy or completeness of information in this document.
[2024-02-14] MEDS: LACTATED RINGER'S SOLUTION 1,000 ML 125 ML IV (18:37)
[2024-02-14] MEDS: ATORVASTATIN CALCIUM 40 MG TABLET PO (23:12)
[2024-02-14] MEDS: PREGABALIN 100 MG CAPSULE PO (23:12)
[2024-02-14] MEDS: OMEPRAZOLE 40 MG CAPSULE.DR PO (23:12)
[2024-02-14] MEDS: ENOXAPARIN SODIUM 30 MG/0.3 ML SYRINGE SUBQ (23:12)
[2024-02-14] MEDS: METOPROLOL TARTRATE 25 MG TABLET 12.5 MG PO (23:13)
[2024-02-14] MEDS: LEVOFLOXACIN IN DEXTROSE 5 % 750 MG/150 ML PREMIX 100 MG IV (23:13)
[2024-02-14 23:24] LABS: Glucometer 290 mg/dL (74-106)
[2024-02-14] MEDS: INSULIN ASPART 300 UNIT/3 ML PEN SUBQ (23:29)
[2024-02-14] MEDS: ZOLPIDEM TARTRATE 5 MG TABLET PO (23:32)
[2024-02-15] VITALS (18 sets, daily range): BP systolic 106–177; BP diastolic 61–81; PULSE 74–118; TEMP 36.4–38.3; O2SAT 94–98
[2024-02-15] MEDS: LACTATED RINGER'S SOLUTION 1,000 ML 125 ML IV ×3 (03:27→19:48)
[2024-02-15] MEDS: PREGABALIN 100 MG CAPSULE PO ×3 (05:48→21:07)
[2024-02-15 07:19] LABS: Hematocrit 35.6 % (36.0-48.0); Mean Corpuscular HGB Conc 30.9 g/dL (29.9-35.2); Mean Platelet Volume 9.6 fL (9.5-13.5); Platelet Count 182 10^3/uL (150-450); Red Blood Count 3.67 10^6/uL (4.20-5.40); Red Cell Distribution Width 13.3 % (11.0-15.0); White Blood Count 12.2 10^3/uL (4.0-11.0)
[2024-02-15 07:34] LABS: Alanine Aminotransferase 11 U/L (14-59); Albumin Globulin Ratio 0.6; Albumin Level 2.1 g/dL (3.4-5.0); Alkaline Phosphatase 70 U/L (46-116); Anion Gap 9.8; Aspartate Amino Transferase 16 U/L (15-37); BUN Creatinine Ratio 14.2; Bilirubin Total 0.4 mg/dL (0.2-1.0); Calcium 8.8 mg/dL (8.5-10.1); Carbon Dioxide 28.7 mmol/L (21.0-32.0); Chloride 100 mmol/L (98-107); Estimated GFR (African America 45 (>=60); Estimated GFR (Non-African Ame 37 (>=60); Globulin 3.8 g/dL; Glucose 140 mg/dL (74-106); Potassium 3.5 mmol/L (3.5-5.1); Sodium 135 mmol/L (136-145); Total Protein 5.9 g/dL (6.4-8.2)
[2024-02-15 07:53] LABS: Glucometer 111 mg/dL (74-106)
[2024-02-15 08:29] LABS: Lymphocytes Absolute Manual 0.73 10^3/uL (1.20-3.80)
[2024-02-15 08:30] LABS: Eosinophils Absolute Manual 0.24 10^3/uL (0.00-0.70); Monocytes Absolute Manual 0.12 10^3/uL (0.30-0.80)
[2024-02-15] MEDS: ACETAMINOPHEN 325 MG TABLET 650 MG PO ×3 (08:46→23:23)
[2024-02-15] MEDS: ASPIRIN 81 MG TABLET.DR PO (08:47)
[2024-02-15] MEDS: PREDNISONE 10 MG TABLET PO (08:47)
[2024-02-15] MEDS: OMEPRAZOLE 40 MG CAPSULE.DR PO ×2 (08:47→21:07)
[2024-02-15] MEDS: CHOLECALCIFEROL (VITAMIN D3) 25 MCG/1,000 UNITS TABLET 50 MCG PO (08:47)
[2024-02-15] MEDS: AMLODIPINE BESYLATE 5 MG TABLET PO (08:47)
[2024-02-15] MEDS: DULOXETINE HCL 30 MG CAPSULE.DR 90 MG PO (08:47)
[2024-02-15] MEDS: METOPROLOL TARTRATE 25 MG TABLET 12.5 MG PO ×2 (08:47→21:07)
--- NOTE | 2024-02-15 09:48 | SWNOTE1 ---
SW met with pt to discuss dc needs. Pt lives at home with her . She has a walker and rollator at home, but she has not been using them. Pt wears 2 liters of oxygen at home, continuous. Pt has had HH in the past. SW offered this to her again since she was here not long ago and since she was not feeling too well. Pt voiced she does not want home health and does not feel like she needs it. At this time pt does not anticipate any discharge needs at this time. She voiced once she feels better she will be fine at home. SW to follow as needed.
--- NOTE | 2024-02-15 10:52 | PM.IMPN1 ---
Progress Note: A&P Assessment and Plan (1) Sepsis: Assessment and Plan: Presented with hemodynamic instability with tachycardia, tachypnea and borderline hypotension. Her vitals are now stable after fluid resuscitation. Continue with IV hydration for now. Continue with IV antibiotics. Follow-up blood and urine cultures. Qualifiers: Sepsis type: sepsis due to unspecified organism Sepsis acute organ dysfunction status: without acute organ dysfunction Qualified Code(s): A41.9 - Sepsis, unspecified organism (2) Acute pyelonephritis: Assessment and Plan: Continue with IV Rocephin/Levaquin. Follow-up blood and urine cultures. (3) COPD (chronic obstructive pulmonary disease): Assessment and Plan: No evidence of acute bronchospasm. No increased work of breathing. Continue with DuoNeb Qualifiers: COPD type: unspecified COPD Qualified Code(s): J44.9 - Chronic obstructive pulmonary disease, unspecified (4) Chronic respiratory failure with hypoxia: Assessment and Plan: Chronic respiratory failure with hypoxia, on 2 L oxygen. At baseline. (5) CAD (coronary artery disease): Assessment and Plan: No evidence of active cardiac ischemia. Continue with home medications Qualifiers: Coronary Disease-Associated Artery/Lesion type: [place] artery [place] vs. transplanted heart: [place] heart Associated angina: without angina Qualified Code(s): I25.10 - Atherosclerotic heart disease of [place] coronary artery without angina pectoris (6) Essential hypertension: Assessment and Plan: Blood pressure is stable. Continue with amlodipine. Monitor blood pressure. (7) CKD stage 3b, GFR 30-44 ml/min: Assessment and Plan: Serum creatinine is more or less at baseline. Monitor closely. (8) Hyperlipidemia: Assessment and Plan: Continue with statin. Qualifiers: Hyperlipidemia type: mixed hyperlipidemia Qualified Code(s): E78.2 - Mixed hyperlipidemia (9) Temporal arteritis: Assessment and Plan: On prednisone daily for temporal arteritis and polymyalgia rheumatica. (10) Polymyalgia rheumatica: Assessment and Plan: On prednisone for polymyalgia rheumatica and temporal arteritis (11) Chronic steroid use: Assessment and Plan: Immunosuppression and high risk of resistant organisms because of chronic prednisone use and recent hospital admission with recent antibiotic use (12) Immunosuppressed status: Assessment and Plan: Due to chronic prednisone use. At high risk of resistant organisms. On IV Rocephin and level 1 (13) Type 2 diabetes mellitus with hyperglycemia: Assessment and Plan: Continue with sliding scale insulin. 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 No overnight events. Patient appears tired and ill-appearing. She reports that she is hurting all over. She again had a low-grade temp patient earlier this morning. She does not feel any improvement in her symptoms since admission. Exam Constitutional Vital Signs, click to edit/add: Last Vital Signs Temp 100.9 F H 02/15/24 07:40 Pulse 83 02/15/24 09:54 Resp 16 02/15/24 07:40 BP 115/61 02/15/24 07:40 Pulse Ox 97 02/15/24 10:51 O2 Del Method Nasal Cannula 02/15/24 10:51 O2 Flow Rate 2 02/15/24 10:51 Documenting provider has reviewed patient's vital signs: yes Common normals: no apparent distress and oriented x3 General appearance: cooperative and ill appearing Respiratory Common normals: normal respiratory effort Effort & inspection: able to speak in complete sentences and tachypneic Auscultation: diminished lung sounds Cardio Common normals: regular rate, S1 normal heart sound and S2 normal heart sound Rate: regular rate Heart sounds: S1 normal and S2 normal GI Common normals: Normal to inspection, nondistended, normoactive bowel sounds present, soft to palpation, non-tender and no hepatosplenomegaly Palpation: soft and no hepatosplenomegaly Back & Pelvis General back: CVA tenderness CVA tenderness: right Extremity Common normals: no clubbing, cyanosis or edema Neuro Common normals: oriented x3, moves all extremities and no focal motor deficits Psych Common normals: mental status grossly normal, denies hallucinations, denies homicidal ideation and denies suicidal ideation Internal Medicine - PN: Obj Da Labs Labs: Laboratory Results - last 24 hr 02/14/24 02/14/24 02/14/24 12:51 12:55 13:07 WBC 20.6 H RBC 4.40 Hgb 13.4 Hct 40.3 MCV 91.6 MCH 30.5 MCHC 33.3 RDW 13.1 Plt Count 218 MPV 9.5 Seg Neuts % (Manual) 90.0 H Band Neutrophils % 2.0 Lymphocytes % (Manual) 3.0 L Monocytes % (Manual) 4.0 Eosinophils % (Manual) 1.0 Basophils % (Manual) 0.0 L Neutrophils # (Manual) 18.54 H Band Neutrophils # 0.4 H Lymphocytes # (Manual) 0.61 L Monocytes # (Manual) 0.82 H Eosinophils # (Manual) 0.20 Basophils # (Manual) 0.00 Sodium 134 L Potassium 3.2 L Chloride 96 L Carbon Dioxide 28.6 Anion Gap 12.6 BUN 23.0 H Creatinine 1.37 H Est GFR ( Amer) 47 L Est GFR (Non-Af Amer) 39 L BUN/Creatinine Ratio 16.8 Glucose 302 H Lactate 2.0 Calcium 9.4 Total Bilirubin AST ALT Alkaline Phosphatase Troponin I High Sens 21.1 Total Protein Albumin Globulin Albumin/Globulin Ratio Urine Color Lt. yellow Urine Clarity Sl cloudy Urine pH 5.5 Ur Specific [place] 1.025 Urine Protein 100 A Urine Glucose (UA) 500 A Urine Ketones Negative Urine Occult Blood Large A Urine Nitrite Negative Urine Bilirubin Negative Urine Urobilinogen 0.2 Ur Leukocyte Esterase Small A Urine RBC 20-50 A Urine WBC >100 A Ur Squamous Epith Cells Few A Urine Crystals None seen Urine Bacteria Large A Urine Casts None seen Urine Mucus None seen Ur Culture Indicated? Yes SARS-CoV-2 Ag (CV2AG) Negative POC Glucose 02/14/24 02/15/24 02/15/24 23:23 06:42 07:38 WBC 12.2 H RBC 3.67 L Hgb 11.0 L Hct 35.6 L MCV 97.0 MCH 30.0 MCHC 30.9 RDW 13.3 Plt Count 182 MPV 9.6 Seg Neuts % (Manual) 91.0 H Band Neutrophils % Lymphocytes % (Manual) 6.0 L Monocytes % (Manual) 1.0 L Eosinophils % (Manual) 2.0 Basophils % (Manual) 0.0 L Neutrophils # (Manual) 11.10 H Band Neutrophils # Lymphocytes # (Manual) 0.73 L Monocytes # (Manual) 0.12 L Eosinophils # (Manual) 0.24 Basophils # (Manual) 0.00 Sodium 135 L Potassium 3.5 Chloride 100 Carbon Dioxide 28.7 Anion Gap 9.8 BUN 20.0 H Creatinine 1.41 H Est GFR ( Amer) 45 L Est GFR (Non-Af Amer) 37 L BUN/Creatinine Ratio 14.2 Glucose 140 H Lactate Calcium 8.8 Total Bilirubin 0.4 AST 16 ALT 11 L Alkaline Phosphatase 70 Troponin I High Sens Total Protein 5.9 L Albumin 2.1 L Globulin 3.8 Albumin/Globulin Ratio 0.6 Urine Color Urine Clarity Urine pH Ur Specific [place] Urine Protein Urine Glucose (UA) Urine Ketones Urine Occult Blood Urine Nitrite Urine Bilirubin Urine Urobilinogen Ur Leukocyte Esterase Urine RBC Urine WBC Ur Squamous Epith Cells Urine Crystals Urine Bacteria Urine Casts Urine Mucus Ur Culture Indicated? SARS-CoV-2 Ag (CV2AG) POC Glucose 290 H 111 H
[2024-02-15 11:17] LABS: Glucometer 150 mg/dL (74-106)
--- NOTE | 2024-02-15 11:34 | SWNOTE1 ---
Pt refused therapy at least 3 times. Pt also has refused to have Home Health set up for her own safety at home.
[2024-02-15] MEDS: INSULIN ASPART 300 UNIT/3 ML PEN SUBQ ×3 (11:41→21:06)
[2024-02-15] MEDS: CEFTRIAXONE 1,000 MG in 0.9 % SODIUM CHLORIDE 50 ML 100 MG IV (13:48)
[2024-02-15 16:52] LABS: Glucometer 186 mg/dL (74-106)
[2024-02-15 21:06] LABS: Glucometer 185 mg/dL (74-106)
[2024-02-15] MEDS: ATORVASTATIN CALCIUM 40 MG TABLET PO (21:07)
[2024-02-15] MEDS: ZOLPIDEM TARTRATE 5 MG TABLET PO (23:07)
[2024-02-16] VITALS (7 sets, daily range): BP systolic 150; BP diastolic 71; PULSE 72–81; TEMP 36.6; O2SAT 97–99
[2024-02-16] MEDS: LACTATED RINGER'S SOLUTION 1,000 ML 125 ML IV (05:20)
[2024-02-16 06:08] LABS: Basophils Percent Auto 0.1 % (0.2-2.0); Eosinophils Absolute Auto 0.2 10^3/uL (0.0-0.7); Eosinophils Percent Auto 1.4 % (0.9-7.0); Hematocrit 32.9 % (36.0-48.0); Hemoglobin 10.7 g/dL (12.0-16.0); Immature Granulocytes Abs Auto 0.07 10^3/uL (0.00-0.03); Immature Granulocytes Pct Auto 0.7 % (0.0-0.5); Lymphocytes Absolute Auto 1.1 10^3/uL (1.2-3.8); Lymphocytes Percent Auto 10.4 % (20.5-60.0); Mean Corpuscular HGB Conc 32.5 g/dL (29.9-35.2); Mean Corpuscular Hemoglobin 30.1 pg (26.7-34.0); Mean Corpuscular Volume 92.7 fL (81.0-99.0); Monocytes Percent Auto 9.3 % (1.7-12.0); Neutrophils Absolute Auto 8.3 10^3/uL (1.4-6.5); Neutrophils Percent Auto 78.1 % (43.0-75.0); Platelet Count 204 10^3/uL (150-450); Red Blood Count 3.55 10^6/uL (4.20-5.40); White Blood Count 10.6 10^3/uL (4.0-11.0)
[2024-02-16] MEDS: PREGABALIN 100 MG CAPSULE PO (06:09)
[2024-02-16 06:20] LABS: Alanine Aminotransferase 12 U/L (14-59); Albumin Globulin Ratio 0.5; Albumin Level 1.9 g/dL (3.4-5.0); Alkaline Phosphatase 70 U/L (46-116); Anion Gap 6.7; Aspartate Amino Transferase 12 U/L (15-37); BUN Creatinine Ratio 13.2; Bilirubin Total 0.2 mg/dL (0.2-1.0); Calcium 8.9 mg/dL (8.5-10.1); Carbon Dioxide 31.4 mmol/L (21.0-32.0); Chloride 103 mmol/L (98-107); Estimated GFR (African America 50 (>=60); Estimated GFR (Non-African Ame 41 (>=60); Globulin 3.8 g/dL; Glucose 117 mg/dL (74-106); Potassium 3.1 mmol/L (3.5-5.1); Sodium 138 mmol/L (136-145); Total Protein 5.7 g/dL (6.4-8.2)
[2024-02-16] MEDS: ACETAMINOPHEN 325 MG TABLET 650 MG PO (07:20)
[2024-02-16] MEDS: PREDNISONE 10 MG TABLET PO (08:17)
[2024-02-16] MEDS: OMEPRAZOLE 40 MG CAPSULE.DR PO (08:17)
[2024-02-16] MEDS: METOPROLOL TARTRATE 25 MG TABLET 12.5 MG PO (08:17)
[2024-02-16] MEDS: AMLODIPINE BESYLATE 5 MG TABLET PO (08:17)
[2024-02-16] MEDS: DULOXETINE HCL 30 MG CAPSULE.DR 90 MG PO (08:18)
[2024-02-16] MEDS: CHOLECALCIFEROL (VITAMIN D3) 25 MCG/1,000 UNITS TABLET 50 MCG PO (08:18)
[2024-02-16] MEDS: ASPIRIN 81 MG TABLET.DR PO (08:18)
[2024-02-16] MEDS: POTASSIUM CHLORIDE 10 MEQ ER TABLET 20 MEQ PO (08:51)
--- NOTE | 2024-02-16 09:51 | PM.DS1 ---
DS: Providers Provider Date of admission: 02/14/24 16:09 Primary care physician: Erasto Tim MD Consults: 02/14/24 16:33 Occupational Therapy Eval and Treat Routine Reason for consultation: generalized weakness Physical Therapy Eval and Treat Routine Reason for consultation: generalized weakness DS: Diagnosis Discharge Diagnosis (1) Sepsis: Assessment and plan: Improving at the time of discharge Qualifiers: Sepsis acute organ dysfunction status: without acute organ dysfunction Sepsis type: sepsis due to unspecified organism Qualified Code(s): A41.9 - Sepsis, unspecified organism (2) Acute pyelonephritis: Assessment and plan: Improving at the time of discharge (3) COPD (chronic obstructive pulmonary disease): Assessment and plan: Improving at the time of discharge Qualifiers: COPD type: unspecified COPD Qualified Code(s): J44.9 - Chronic obstructive pulmonary disease, unspecified (4) Chronic respiratory failure with hypoxia: Assessment and plan: Improving at the time of discharge (5) CAD (coronary artery disease): Assessment and plan: Stable at the time of discharge Qualifiers: Associated angina: without angina Coronary Disease-Associated Artery/Lesion type: [place] artery [place] vs. transplanted heart: [place] heart Qualified Code(s): I25.10 - Atherosclerotic heart disease of [place] coronary artery without angina pectoris (6) Essential hypertension: Assessment and plan: Stable at the time of discharge (7) CKD stage 3b, GFR 30-44 ml/min: Assessment and plan: Improving at the time of discharge (8) Hyperlipidemia: Assessment and plan: Stable at the time of discharge Qualifiers: Hyperlipidemia type: mixed hyperlipidemia Qualified Code(s): E78.2 - Mixed hyperlipidemia (9) Temporal arteritis: Assessment and plan: Stable at the time of discharge (10) Polymyalgia rheumatica: Assessment and plan: Stable at the time of discharge (11) Chronic steroid use: Assessment and plan: Stable at the time of discharge (12) Immunosuppressed status: Assessment and plan: Stable at the time of discharge (13) Type 2 diabetes mellitus with hyperglycemia: Assessment and plan: Stable at the time of discharge Qualifiers: Diabetes mellitus [place] headgate operator insulin use: without [place] headgate operator use Qualified Code(s): E11.65 - Type 2 diabetes mellitus with hyperglycemia Plan DS: Summary Hospital Course Hospital Course: Patient admitted with uncontrolled hyperglycemia, fever 100.9, sinus tachycardia, leukocytosis, hyponatremia, hypokalemia secondary to acute pyelonephritis. Sepsis. Patient was treated with Rocephin and levofloxacin. Her white blood cell count has returned to normal. Although she is still weak with myalgias, fevers have resolved in the last 24 hours. With leukocytosis resolved, patient feels improved enough to try going home. Final cultures are still pending but does show gram-negative organism. Will send patient home on levofloxacin. Follow-up with her PCP within the next week. Medications see this. Status at Discharge Overall status at discharge: patient is not back to baseline Time Spent with Patient Time attestation: Total time spent providing and/or coordinating discharge services: Time spent: greater than 30 minutes Exam Constitutional Vital Signs, click to edit/add: Last Vital Signs Temp 97.9 F 02/16/24 06:00 Pulse 81 02/16/24 07:51 Resp 20 02/16/24 06:00 BP 150/71 H 02/16/24 06:00 Pulse Ox 97 02/16/24 06:00 O2 Del Method Nasal Cannula 02/16/24 06:00 O2 Flow Rate 2 02/16/24 06:00 Documenting provider has reviewed patient's vital signs: yes Common normals: no apparent distress Chest Common normals: inspection of chest normal Respiratory Common normals: normal respiratory effort and no retractions Cardio Common normals: regular rate and regular rhythm GI Common normals: Normal to inspection, nondistended, normoactive bowel sounds present, soft to palpation and non-tender DS: Data Data Completed and Pending Labs on day of discharge: Labs from last 24 hours 02/16/24 02/15/24 02/15/24 05:54 21:05 16:46 WBC 10.6 RBC 3.55 L Hgb 10.7 L Hct 32.9 L MCV 92.7 MCH 30.1 MCHC 32.5 RDW 13.0 Plt Count 204 MPV 10.0 Neut % (Auto) 78.1 H Lymph % (Auto) 10.4 L Turner % (Auto) 9.3 Eos % (Auto) 1.4 Baso % (Auto) 0.1 L Neut # (Auto) 8.3 H Lymph # (Auto) 1.1 L Turner # (Auto) 1.0 H Eos # (Auto) 0.2 Baso # (Auto) 0.0 Abs Immat Gran (auto) 0.07 H Imm/Tot Granulo (auto) 0.7 H Sodium 138 Potassium 3.1 L Chloride 103 Carbon Dioxide 31.4 Anion Gap 6.7 BUN 17.0 Creatinine 1.29 H Est GFR ( Amer) 50 L Est GFR (Non-Af Amer) 41 L BUN/Creatinine Ratio 13.2 Glucose 117 H Calcium 8.9 Total Bilirubin 0.2 AST 12 L ALT 12 L Alkaline Phosphatase 70 Total Protein 5.7 L Albumin 1.9 L Globulin 3.8 Albumin/Globulin Ratio 0.5 POC Glucose 185 H 186 H 02/15/24 11:14 WBC RBC Hgb Hct MCV MCH MCHC RDW Plt Count MPV Neut % (Auto) Lymph % (Auto) Turner % (Auto) Eos % (Auto) Baso % (Auto) Neut # (Auto) Lymph # (Auto) Turner # (Auto) Eos # (Auto) Baso # (Auto) Abs Immat Gran (auto) Imm/Tot Granulo (auto) Sodium Potassium Chloride Carbon Dioxide Anion Gap BUN Creatinine Est GFR ( Amer) Est GFR (Non-Af Amer) BUN/Creatinine Ratio Glucose Calcium Total Bilirubin AST ALT Alkaline Phosphatase Total Protein Albumin Globulin Albumin/Globulin Ratio POC Glucose 150 H Preliminary micro results at discharge 02/14/24 12:51 Urine Culture - Preliminary Urine,Clean Catch Gram negative chelsi Discharge Plan Discharge Disposition: Home, Self-Care Condition: Good Discharge Medications: New levofloxacin 500 mg tablet 500 mg PO DAILY 7 Days Qty: 7 0RF Continued atorvastatin 40 mg tablet 40 mg PO .QHS metoprolol tartrate 25 mg tablet 12.5 mg PO BID omeprazole 40 mg capsule,delayed release(DR/EC) 40 mg PO BID duloxetine 30 mg capsule,delayed release(DR/EC) 90 mg PO DAILY aspirin 81 mg tablet,delayed release (DR/EC) 81 mg PO DAILY eszopiclone [Lunesta] 3 mg tablet 3 mg PO .QHS PRN (Reason: sleep) melatonin 5 mg tablet 5 mg PO .QHS pregabalin [Lyrica] 100 mg capsule 100 mg PO TID potassium chloride 20 mEq tablet extended release 20 meq PO DAILY PRN (Reason: hypokalemia) ferrous sulfate 325 mg (65 mg iron) tablet 325 mg PO DAILY cranberry 500 mg capsule 500 mg PO DAILY Rx Instructions: administer with a meal cholecalciferol (vitamin D3) 50 mcg (2,000 unit) capsule 50 mcg PO DAILY albuterol sulfate 90 mcg/actuation HFA aerosol inhaler 2 puff INHALATION Q4H PRN (Reason: shortness of breath or wheezing) guaifenesin 600 mg tablet extended release 12hr 1,200 mg PO BID amlodipine 5 mg tablet 5 mg PO QAM prednisone 5 mg tablet 10 mg PO DAILY Hold Instructions: Hold until finish prednisone taper Print Language: Dutch Patient Instructions: Levofloxacin (By mouth), Kidney Infection (DC) Forms: Portal Instructions Follow Up Appointments: Call Dr tim office on Sunday for hospital follow up one week [phone] Discharge Date/Time: 02/16/24 11:04
--- NOTE | 2024-02-18 11:42 | CM.DCFOLLOWU ---
Person spoke with: alida How are you feeling? Better How is your pain? No pain Did you understand your discharge instructions? Yes Do you have any questions about your discharge instructions? No Were you given any prescriptions at discharge? Yes Were you able to get your prescriptions filled? Yes Do you understand how to take your medications as ordered? Yes Do you have any questions about your follow up appointment and do you plan to keep your follow up appointment? No, Im calling to schedule today Is there anything else that you would like to discuss? No Questions/Comments/Concerns/Other:
== END 2024-02-16 11:04 | disposition home or self-care (01) | DRG 872 ==
LOC: ER 15:36 → MS 16:16
PROVIDERS: Internal Medicine; Admitting Provider Family Medicine; Emergency Provider Emergency Medicine; PCP Family Medicine; Visit Provider Family Medicine
DX: A41.89 Other specified sepsis (principal); N10 Acute pyelonephritis; J96.11 Chronic respiratory failure with hypoxia; E87.1 Hypo-osmolality and hyponatremia; J44.9 Chronic obstructive pulmonary disease, unspecified; Z99.81 Dependence on supplemental oxygen; I25.10 Atherosclerotic heart disease of native coronary artery without angina pectoris; I12.9 Hypertensive chronic kidney disease with stage 1 through stage 4 chronic kidney disease, or unspecified chronic kidney disease; N18.32 Chronic kidney disease, stage 3b; E78.5 Hyperlipidemia, unspecified; M31.5 Giant cell arteritis with polymyalgia rheumatica; E11.65 Type 2 diabetes mellitus with hyperglycemia; E11.22 Type 2 diabetes mellitus with diabetic chronic kidney disease; E87.6 Hypokalemia; F32.A Depression, unspecified; L21.9 Seborrheic dermatitis, unspecified; I25.2 Old myocardial infarction; Z79.52 Long term (current) use of systemic steroids; Z87.891 Personal history of nicotine dependence; Z90.2 Acquired absence of lung [part of]; Z95.5 Presence of coronary angioplasty implant and graft; Z79.82 Long term (current) use of aspirin; Z79.899 Other long term (current) drug therapy; Z20.822 Contact with and (suspected) exposure to COVID-19
CPT/HCPCS: 36415; 71045; 74177; 80048; 80053; 81001; 82948; 83605; 84484; 85007; 85025; 85027; 87040; 87086; 87150; 87186; 87811; 93005; 94761; 96361; 96365; 96366; 96367; 96372; 96375; 96376; 99285; G0328; J0696; J1650; J2405; J7512; Q9967

== ENCOUNTER 2024-02-18 18:19 | Emergency (ER) | payer OTHER, MEDICARE, SELFPAY ==
[2024-02-18 18:32] VITALS: BP 139/97; PULSE 118; TEMP 36.5; O2SAT 98; BMI 19.0
--- OUTSIDE RECORDS SUMMARY | 2024-02-18 18:34 | XMS_ITS | CCD ---
Author Organization [facility] CliniSytn Care Team Providers Care School Bus Aide Name Role Phone IMAN WILLIS Admitting Unavailable [...] Unavailable ZACH, DR AVINASH Pelayo Consulting Unavailbailey SERRNAO, DR AVINASH Pelayo Procedure Practitioner Audrey vailable MANJIT, ORESTES Procedure Practitioner Unavailab davey RENYOSO, DR MIGUE Wild Consulting Unavailable NADERER, DR [...] sources) Azithromycin; Translations: [AZITHROMYCIN] Drug Allergy [facility] Repository (5 sources) Latex; Translations: [Latex] Drug allergy (disorder) [facility] Repository (1 source) Azithromycin Drug Allergy [address] [facility] Repository (1 source) Latex Drug allergy (disorder) [address] 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; Translations: [ATHSCL HEART DISEASE OF [place] CORONARY ARTERY W/O ANG PCTRS] Onset: 03-08-20 [...] 12-23-19 Chronic Other aftercare (5 sources) Other longterm (current) drug therapy; Translations: [OTH UI DESIGNER CURRENT DRUG THERAPY] Onset: 05-01-20 Episodic Other [...] Onset: 04-04-2022 Episodic Other aftercare (1 source) 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 She has no VM. Normal [facility] 36on 01-29-2024 36 Regarding lab result s from 01/07/2024: MD Kika Becerra MA Blood work is ok, follow up as planned in 6 months. Tried to contact patient but no VM. Will try again tomorrow. Normal [facility] Office Visiton 01-07-2024 Follow-up visit [id number] Covert,Lise Easton 1955 F Date Provider Department Center 01/07/2024 JER LARRY MARC Kirk Family History Problem Relation Age of Onset Stroke Father Stroke Father's Sister Coronary artery disease Paternal Grandmother Family Status - Relation Status Age at Father Father's Sister Paternal Grandmother Level of Service:51006 IN OFFICE/OUTPATIENT ESTABLISHED MOD MDM 30 MIN Normal [facility] Consent for Procedure/Surger yon 11-12-2023 Consent for Procedure/Surgery [id number] [facility] Patient Educationon 11-09-19 24 Patient Education [...] including vitamins, herbs, eye drops, creams, and yirw-abb-lfffcos medicines. ? Any problems you or family [...] tells you to take them. ? Taking ezph-fau-uwafiyu medicines, vitamins, herbs, and supplements. General instructions [...] these instructions at home: Medicines ? Take oepw-mey-vkceusj and prescription medicines only as told by [...] to prevent or treat constipation: ? Take vkcg-uuj-yyfazup or prescription medicines. ? Eat foods that [...] You pa (more content not included)... Normal [facility] Urology Office/Clinic Noteon 11-09-2023 Urology Office/Clinic Note [...] Tight The Urethra was dilated to: 20-32 [place] with sounds. Specimens Removed: None Postoperative Information [...] Contact Information KEVIN SALDIVAR, Ihsan Wild, URL [facility] [place] [address]- Additional Instructions: 6 mos w/ IO UD [...] Vitamin D3 (more content not included)... Normal [facility] Comment on above: Result Comment: Elec tronically Signed By: Ihsan BROWN MD\.br\Date and Time Signed: 11/09/23 12:24 EDT\.br\Electronically Co-Signed By: Amanda Camara.fritz\Date and Time Co-Signed: 11/09/23 12:14 EDT 36on 09-03-2023 36 Home health informed and script sent Normal [facility] Orders Onlyon 08-30-2023 Orders Only [id number] Covert,Lise Easton 1955 F Date Provider Department Center 08/30/2023 RUSH HENNESSY [facility] Family History Problem Relation Age of Onset Stroke Father Stroke Father's Sister Coronary artery disease Paternal Grandmother Family Status - Relation Status Age at Father Father's Sister Paternal Grandmother Normal [facility] Office Visiton 06-27-2023 Follow-up visit [id number] Covert,Lise Easton 1955 F Date Provider Department Center 06/27/2023 Andrew-JER NEFF MARC Kirk Family History Problem Relation Age of Onset Stroke Father Stroke Father's Sister Coronary artery disease Paternal Grandmother Family Status - Relation Status Age at Father Father's Sister Paternal Grandmother Level of Service:10725 IN OFFICE/OUTPATIENT ESTABLISHED LOW MDM 20 MIN Normal [facility] 30on 06-06-2023 30 The patient is [...] for stability, deterioration, or improvement Normal [facility] BASIC METABOLIC PANELon 11- Anion gap [Moles/Vol] 9 mmol/L Normal 7-20 [facility] Comment on above: Performed By: #### L [id number] #### [facility] ([facility]) [address] [place] [address] Calcium [Mass/Vol] 8.3 mg/dL Low 8.6-10.3 [facility] Comment on above: Performed By: #### L [id number] #### [facility] ([facility]) [address] [place] [address] Chloride [Moles/Vol] 99 mmol/L Normal 98-107 [facility] Comment on above: Performed By: #### L [id number] #### [facility] ([facility]) [address] [place] [address] CO2 [Moles/Vol] 26 mmol/L Normal 21-31 [facility] Comment on above: Performed By: #### L [id number] #### [facility] ([facility]) [address] [place] [address] Creatinine [Mass/Vol] 0.72 mg/dL Normal 0.60-1.20 [facility] Comment on above: Performed By: #### L [id number] #### [facility] ([facility]) [address] [place] [address] GLOMERULAR FILTRATION RATE ML/MIN/1.73 SQ M.PREDICTED 92.2 mL/min/1.73m*2 Normal >60.0 [facility] Comment on above: Result Comment: The [facility]???s estimated glomerular filtration rate (eGFR) will [...] individuals. Performed By: #### L [id number] #### [facility] ([facility]) [address] [place] [address] Glucose [Mass/Vol] 107 mg/dL High 70-100 [facility] Comment on above: Performed By: #### L [id number] #### [facility] ([facility]) [address] [place] [address] Potassium [Moles/Vol] 3.9 mmol/L Normal 3.5-5.1 [facility] Comment on above: Performed By: #### L [id number] #### [facility] ([facility]) [address] [place] [address] Sodium [Moles/Vol] 130 mmol/L Low 136-145 [facility] Comment on above: Performed By: #### L [id number] #### [facility] ([facility]) [address] [place] [address] Urea nitrogen [Mass/Vol] 12 mg/dL Normal 7-25 [facility] Comment on above: Performed By: #### L [id number] #### [facility] [address] [place] [address] UREA NITROGEN/CREATININE (MASS RATIO) IN SER/PLAS 16.7 Normal [facility] Comment on above: Performed By: #### L [id number] #### [facility] [address] [place] [address] CBCon 06-06-2023 Erythrocyte distribution width (RBC) [Ratio] 13.4 % Normal 11.5-15.0 [facility] Comment on above: Performed By: #### L [id number] #### [facility] ([facility]) [address] [place] [address] ERYTHROCYTE MEAN CORPUSCULAR HEMOGLOBIN CONCENTRATION (G/DL) BY AUTOMATED 33.4 g/dL Normal 32.0-35.0 [facility] Comment on above: Performed By: #### L [id number] #### [facility] ([facility]) [address] [place] [address] Hematocrit (Bld) [Volume fraction] 28.7 % Low 36.0-48.0 [facility] Comment on above: Performed By: #### L [id number] #### [facility] ([facility]) [address] [place] [address] Hemoglobin (Bld) [Mass/Vol] 9.6 g/dL Low 12.0-15.0 [facility] Comment on above: Performed By: #### L [id number] #### [facility] ([facility]) [address] [place] [address] MCH (RBC) [Entitic mass] 28.2 pg Normal 27.0-33.0 [facility] Comment on above: Performed By: #### L [id number] #### [facility] ([facility]) [address] [place] [address] MCV (RBC) [Entitic vol] 84.4 fL Normal 82.0-98.0 [facility] Comment on above: Performed By: #### L [id number] #### [facility] ([facility]) [address] [place] [address] PLATELETS (10*3/UL) IN BLOOD AUTOMATED COUNT 522 10*3/uL High 150-400 [facility] Comment on above: Performed By: #### L [id number] #### [facility] ([facility]) [address] [place] [address] RBC (Bld) [#/Vol] 3.40 10*6/uL Low 3.80-5.00 [facility] Comment on above: Performed By: #### L [id number] #### [facility] ([facility]) [address] [place] [address] WBC (Bld) [#/Vol] 10.31 10*3/uL Normal 4.00-10.60 [facility] Comment on above: Performed By: #### L [id number] #### [facility] ([facility]) [address] [place] [address] Letter (Out)on 06-06-2023 Letter (Out) [id number] Covert,Lise Easton 1955 F Date Provider Department Center 06/06/2023 [id number], GENERIC PRO*INIT None Family History Problem Relation Age of Onset Stroke Father Stroke Father's Sister Coronary artery disease Paternal Grandmother Family Status - Relation Status Age at Father Father's Sister Paternal Grandmother Normal [facility] MAGNESIUMon 06-06-2023 Magnesium [Mass/Vol] 1.9 mg/dL Normal 1.9-2.7 [facility] Comment on above: Performed By: #### L [id number] #### [facility] ([facility]) [address] [place] [address] 30on 06-05-2023 30 The patient is Moderately Stable - Low risk of patient condition declining or worsening The patient's goals for the shift include comfort The clinical goals for the shift include stable vitals Normal [facility] 30 Daily Case Managemen t Update Multidisciplinary rounds have been completed. Barriers to Discharge: Transfer from [facility] for chest pain and NSTEMI. TTE ordered. Pending cardio rec. Trop was .06 down to .04. +UTI and Pneumonia. Continue IV Rocephin. Urine and blood cultures pending. Patient is from home with [facility] 02 Diet: Dietary [...] here: DANIEL GUERIN 06/05/23 1508 Normal [facility] 30 The patient is Moderately Unstable - Medium risk of patient condition declining or worsening The patient's goals for the shift include comfort The clinical goals for the shift include vss Over the shift, the patient did not make progress toward the following goals. Barriers to progression include . Recommendations to address these barriers include . Normal [facility] 30 The patient is Moderately Stable [...] injury: Assess patient frequently for physical needs [place] fall precautions as indicated by assessment Identify [...] prevent overall improvement and discharge Normal [facility] ANTI-XA (HEPARIN LEVEL)on HEPARIN UNFRACTIONATED (U/ML) IN PPP BY CHROMOGENIC METHOD <0.10 Invalid Interpretation Code 0.3-0.7 [facility] Comment on above: Order Comment: Check anti-Xa level every 6 hours while on heparin infusion, or per protocol. Result Comment: Jackson roxaban and Apixaban will interfere with the anti Xa assay used to monitor UFH and LMWH. Performed By: #### L [id number] #### [facility] ([facility]) [address] [place] [address] HEPARIN UNFRACTIONATED (U/ML) IN PPP BY CHROMOGENIC METHOD <0.10 Invalid Interpretation Code 0.3-0.7 [facility] Comment on above: Order Comment: Check anti-Xa level every 6 hours while on heparin infusion, or per protocol. Result Comment: Lenka roxaban and Apixaban will interfere with the anti Xa assay used to monitor UFH and LMWH. Performed By: #### L [id number] #### [facility] ([facility]) [address] [place] [address] APTTon 06-05-2023 ACTIVATED PARTIAL THROMBOPLASTIN TIME IN PPP BY COAGULATION ASSAY 38.8 Seconds High 25.0-35.0 [facility] Comment on above: Result Comment: Clin ical significance of the APTT is questionable in the presence of heparin. Performed By: #### L [id number] #### [facility] ([employer]) [address] [place] [address] B-TYPE NATRIURETIC PEPTIDEon 06-05-2023 Natriuretic peptide B (Bld) [Mass/Vol] 136 pg/mL High 0-100 [facility] Comment on above: Performed By: #### L [id number] #### [facility] ([facility]) [address] [place] [address] BLOOD CULTUREon 06-05-2023 Bacteria identified Cx Nom (Bld) No growth at 5 days Normal [facility] Comment on above: Performed By: #### L [id number] ####[facility] ([facility])[address] [place] [address] Order Comment: From a different site than #1. CBC WITH AUTO DIFFERENTIALon 06-05-2023 Basophils (Bld) [#/Vol] 0.05 10*3/uL Normal 0.00-0.20 [facility] Comment on above: Performed By: #### L [id number] #### [facility] ([facility] [address] [place] [address] Basophils/100 WBC (Bld) 0.3 % Normal 0.0-1.0 [facility] Comment on above: Performed By: #### L [id number] #### [facility] ([facility]) [address] [place] [address] Eosinophils (Bld) [#/Vol] 0.02 10*3/uL Normal 0.00-0.50 [facility] Comment on above: Performed By: #### L [id number] #### [facility] ([facility] [address] [place] [address] Eosinophils/100 WBC (Bld) 0.1 % Normal 0.0-6.0 [facility] Comment on above: Performed By: #### L [id number] #### [facility] [address] [place] [address] Erythrocyte distribution width (RBC) [Ratio] 13.3 % Normal 11.5-15.0 [facility] Comment on above: Performed By: #### L [id number] #### [facility] ([facility] [address] [place] [address] ERYTHROCYTE MEAN CORPUSCULAR HEMOGLOBIN CONCENTRATION (G/DL) BY AUTOMATED 32.4 g/dL Normal 32.0-35.0 [facility] Comment on above: Performed By: #### L [id number] #### [facility] ([facility]) [address] [place] [address] Hematocrit (Bld) [Volume fraction] 35.8 % Low 36.0-48.0 [facility] Comment on above: Performed By: #### L [id number] #### [facility] ([facility]) [address] [place] [address] Hemoglobin (Bld) [Mass/Vol] 11.6 g/dL Low 12.0-15.0 [facility] Comment on above: Performed By: #### L [id number] #### [facility] ([facility]) [address] [place] [address] Immature granulocytes (Bld) [#/Vol] 0.17 10*3/uL Normal 0.00-0.20 [facility] Comment on above: Performed By: #### L [id number] #### [facility] ([facility]) [address] [place] [address] Immature granulocytes/100 WBC (Bld) 1.0 % Normal 0.0-1.0 [facility] Comment on above: Performed By: #### L [id number] #### [facility] ([facility]) [address] [place] [address] Lymphocytes (Bld) [#/Vol] 0.80 10*3/uL Low 1.20-4.00 [facility] Comment on above: Performed By: #### L [id number] #### [facility] ([facility]) [address] [address] Lymphocytes/100 WBC (Bld) 4.6 % Low 20.0-45.0 [facility] Comment on above: Performed By: #### L [id number] #### [facility] ([facility]) [address] [place] [address] MCH (RBC) [Entitic mass] 28.3 pg Normal 27.0-33.0 [facility] Comment on above: Performed By: #### L [id number] #### [facility] [address] [place] [address] MCV (RBC) [Entitic vol] 87.3 fL Normal 82.0-98.0 [facility] Comment on above: Performed By: #### L [id number] #### [facility] ([facility]) [address] [place] [address] Monocytes (Bld) [#/Vol] 0.78 10*3/uL Normal 0.10-1.00 [facility] Comment on above: Performed By: #### L [id number] #### [facility] ([facility]) [address] [place] [address] Monocytes/100 WBC (Bld) 4.5 % Low 5.0-12.0 [facility] Comment on above: Performed By: #### L [id number] #### [facility] ([facility]) [address] [place] [address] Neutrophils (Bld) [#/Vol] 15.46 10*3/uL High 1.60-7.60 [facility] Comment on above: Performed By: #### L [id number] #### [facility] ([facility]) [address] [place] [address] Neutrophils/100 WBC (Bld) 89.5 % High 40.0-72.0 [facility] Comment on above: Performed By: #### L [id number] #### [facility] ([facility]) [address] [place] [address] NRBC (PER 100 WBCS) BY AUTOMATED COUNT 0.0 % Normal 0 [facility] Comment on above: Performed By: #### L [id number] #### [facility] ([facility]) [address] [place] [address] PLATELETS (10*3/UL) IN BLOOD AUTOMATED COUNT 517 10*3/uL High 150-400 [facility] Comment on above: Performed By: #### L [id number] #### [facility] [address] [place] [address] RBC (Bld) [#/Vol] 4.10 10*6/uL Normal 3.80-5.00 [facility] Comment on above: Performed By: #### L [id number] #### [facility] [address] [place] [address] WBC (Bld) [#/Vol] 17.28 10*3/uL High 4.00-10.60 [facility] Comment on above: Performed By: #### L [id number] #### [facility] ([facility]) [address] [place] [address] COMPREHENSIVE METABOLIC PANE [place] 06-05-2023 ALANINE AMINOTRANSFERASE (SGPT) (U/L) IN SER/PLAS <3 Low 7-52 [facility] Comment on above: Performed By: #### L [id number] #### [facility] ([facility] [address] [place] [address] Albumin [Mass/Vol] 3.1 g/dL Low 3.5-5.7 [facility] Comment on above: Performed By: #### L [id number] #### [facility] [address] [place] [address] ALP [Catalytic activity/Vol] 83 U/L Normal 34-104 [facility] Comment on above: Performed By: #### L [id number] #### [facility] ([facility] [address] [place] [address] Anion gap [Moles/Vol] 13 mmol/L Normal 7-20 [facility] Comment on above: Performed By: #### L [id number] #### [facility] ([facility]) [address] [place] [address] AST [Catalytic activity/Vol] 14 U/L Normal 13-39 [facility] Comment on above: Performed By: #### L [id number] #### [facility] ([facility]) [address] [place] [address] Bilirubin [Mass/Vol] 0.3 mg/dL Normal 0.3-1.0 [facility] Comment on above: Performed By: #### L [id number] #### [facility] ([facility] [address] [place] [address] Calcium [Mass/Vol] 8.9 mg/dL Normal 8.6-10.3 [facility] Comment on above: Performed By: #### L [id number] #### [facility] ([facility] [address] [place] [address] Chloride [Moles/Vol] 98 mmol/L Normal 98-107 [facility] Comment on above: Performed By: #### L [id number] #### [facility] ([facility]) [address] [place] [address] CO2 [Moles/Vol] 25 mmol/L Normal 21-31 [facility] Comment on above: Performed By: #### L [id number] #### [facility] ([facility]) [address] [place] [address] Creatinine [Mass/Vol] 0.96 mg/dL Normal 0.60-1.20 [facility] Comment on above: Performed By: #### L [id number] #### [facility] ([facility]) [address] [place] [address] GLOMERULAR FILTRATION RATE ML/MIN/1.73 SQ M.PREDICTED 65.3 mL/min/1.73m*2 Normal >60.0 [facility] Comment on above: Result Comment: The [facility]???s estimated glomerular filtration rate (eGFR) will [...] individuals. Performed By: #### L [id number] #### [facility] ([facility] [address] [place] [address] Glucose [Mass/Vol] 93 mg/dL Normal 70-100 [facility] Comment on above: Performed By: #### L [id number] #### [facility] ([facility]) [address] [place] [address] Potassium [Moles/Vol] 3.3 mmol/L Low 3.5-5.1 [facility] Comment on above: Performed By: #### L [id number] #### [facility] ([facility]) [address] [place] [address] Protein [Mass/Vol] 5.7 g/dL Low 6.0-8.3 [facility] Comment on above: Performed By: #### L [id number] #### [facility] ([facility]) [address] [place] [address] Sodium [Moles/Vol] 133 mmol/L Low 136-145 [facility] Comment on above: Performed By: #### L [id number] #### [facility] ([facility]) [address] [place] [address] Urea nitrogen [Mass/Vol] 12 mg/dL Normal 7-25 [facility] Comment on above: Performed By: #### L [id number] #### [facility] ([facility]) [address] [place] [address] UREA NITROGEN/CREATININE (MASS RATIO) IN SER/PLAS 12.5 Normal [facility] Comment on above: Performed By: #### L [id number] #### [facility] ([facility]) [address] [place] [address] CONSULTon 06-05-2023 CONSULT - Attestation signed by [...] Nausea / Vomiting and Urinary symptoms to [facility], there she was found to have UTI, labs showed WBC of 17 and she was started on IV antibiotics, work up also showed high sensitive troponin of 62, She doesn't report any chest pain, or discomfort. She was started on heparin drip and was transferred here to [facility]. Today she reports no chest pain [...] NEURO: (more content not included)... Normal [facility] ETHANOLon 06-05-2023 ETHANOL (MG/DL) IN SER/PLAS <10 Normal [facility] Comment on above: Performed By: #### L [id number] #### [facility] ([employer]) [address] [place] [address] ETHANOL CALCULATED (%) Normal [facility] Comment on above: Performed By: #### L [id number] #### [facility] ([employer]) [address] [place] [address] HEMOGLOBIN A1Con 06-05-2023 Glucose [Mass/Vol] 160 mg/dL Normal [facility] Comment on above: Performed By: #### L [id number] ####[facility] ([employer])[address] [place] [address] HbA1c (Bld) [Mass fraction] 7.2 % High 4.0-6.0 [facility] [facility] Comment on above: Performed By: #### L [id number] ####[facility] ([facility])[address] [place] [address] LACTIC ACID WITH 4 HOUR REFL EXon 06-05-2023 LACTATE (MMOL/L) IN SER/PLAS 1.1 mmol/L Normal 0.5-2.2 [facility] Comment on above: Performed By: #### L [id number] #### [facility] ([facility]) [address] [place] [address] LEGIONELLA ANTIGEN, URINEon 06-05-2023 LEGIONELLA AG, UR Negative Normal NEG [facility] Comment on above: Result Comment: L. p neumophila serogroup 1 antigen not detected. A negative result does not exclude infection with Leginella pnemophila serogroup 1 nor does it rule out other microbial-caused respiratory infections of disease caused by other serogroups of Legionella pneumophila. Test Performed by [facility] [address] [place] [address] - Released 06/05/2023 12:36 Performed By: #### L [id number] #### [facility] [address] [place] [address] LIPID PANELon 06-05-2023 CHOL/HDL 1.6 mg/dL Normal [facility] Comment on above: Performed By: #### L [id number] #### [facility] ([facility]) [address] [place] [address] Cholesterol [Mass/Vol] 74 mg/dL Low 120-200 [facility] Comment on above: Performed By: #### L [id number] #### [facility] ([facility]) [address] [place] [address] Magnesium [Mass/Vol] 65 mg/dL Normal 40-149 [facility] Comment on above: Result Comment: TRIG LYCERIDE REFERENCE RANGE: 20 YEARS AND OLDER CARDIOVASCULAR RISK LESS THAN 150 mg/dL LOW RISK 150 TO 199 mg/dL BORDERLINE RISK 200 mg/dL AND GREATER HIGH RISK Performed By: #### L [id number] #### [facility] ([facility]) [address] [place] [address] Magnesium [Mass/Vol] 14 mg/dL Normal 0-160 [facility] Comment on above: Performed By: #### L [id number] #### [facility] ([facility]) [address] [place] [address] Magnesium [Mass/Vol] 47 mg/dL Normal 23-92 [facility] Comment on above: Performed By: #### L [id number] #### [facility] ([facility]) [address] [place] [address] NON HDL CHOL. (LDL+VLDL) 27 Normal [facility] Comment on above: Performed By: #### L [id number] #### [facility] ([facility]) [address] [place] [address] TOTAL VLDL-C 13 mg/dL Normal 0-40 [facility] Comment on above: Performed By: #### L [id number] #### [facility] ([facility]) [address] [place] [address] MAGNESIUMon 06-05-2023 Magnesium [Mass/Vol] 1.1 mg/dL Low 1.9-2.7 [facility] Comment on above: Performed By: #### L [id number] #### [facility] ([facility]) [address] [place] [address] PHOSPHORUSon 06-05-2023 Magnesium [Mass/Vol] 2.8 mg/dL Normal 2.5-5.0 [facility] Comment on above: Performed By: #### L [id number] #### [facility] ([facility]) [address] [facility] [address] PROTIME-INRon 06-05-2023 INR IN PPP BY COAGULATION ASSAY 1.25 High 0.90-1.10 [facility] Comment on above: Result Comment: ACCC [...] 1995;[id number]. Performed By: #### L [id number] #### [facility] [employer]) [address] [place] [address] PROTHROMBIN TIME (PT) IN PPP BY COAGULATION ASSAY 15.7 Seconds High 12.3-14.8 [facility] Comment on above: Performed By: #### L [id number] #### [facility] [employer]) [address] [place] [address] TOXICOLOGY PANEL URINEon AMPHETAMINE+METHAMPHE TAMINE SCREEN (PRESENCE) IN URINE Negative Normal Negative [facility] Comment on above: Performed By: #### L [id number] ####[facility] ([facility])[address] [place] [address] BARBITURATES PRESENCE IN URINE BY SCREEN METHOD Negative Normal Negative [facility] Comment on above: Performed By: #### L [id number] ####[facility] [employer])[address] [place] [address] Benzodiazepines Ql (U) Negative Normal Negative [facility] Comment on above: Performed By: #### L [id number] ####[facility] [employer])[address] [place] [address] CANNABINOID (PRESENCE) IN URINE BY SCREEN METHOD Negative Normal Negative [facility] Comment on above: Performed By: #### L [id number] ####[facility] [place] [address] Cocaine Ql (U) Negative Normal Negative [facility] Comment on above: Performed By: #### L [id number] ####[facility] [place] [address] METHADONE (PRESENCE) IN URINE BY SCREEN METHOD Negative Normal Negative [facility] Comment on above: Performed By: #### L [id number] ####[facility] ([facility])[address] [place] [address] OPIATES (PRESENCE) IN URINE BY SCREEN METHOD Positive Abnormal Negative [facility] Comment on above: Performed By: #### L [id number] ####[facility] ([facility])[address] [place] [address] PHENCYCLIDINE PRESENCE IN URINE BY SCREEN METHOD Negative Normal Negative [facility] Comment on above: Performed By: #### L [id number] ####[facility] ([facility] [place] [address] Propoxyphene Screen Ql (U) Negative Normal Negative [facility] Comment on above: Performed By: #### L [id number] ####[facility] ([facility])[address] [place] [address] TRICYCLIC ANTIDEPRESSANTS (PRESENCE) IN URINE Negative Normal Negative [facility] Comment on above: Performed By: #### L [id number] ####[facility] ([facility])[address] [place] [address] TROPONIN Ion 06-05-2023 Troponin I.cardiac [Mass/Vol] 0.04 ng/mL Normal 0.00-0.04 [facility] Comment on above: Performed By: #### L [id number] #### [facility] ([facility]) [address] [place] [address] Troponin I.cardiac [Mass/Vol] 0.06 ng/mL High 0.00-0.04 [facility] Comment on above: Performed By: #### L [id number] ####[facility] ([facility])[address] [place] [address] TSH3 REFLEX TO FT4on 023 THYROTROPIN (MIU/L) IN SER/PLAS BY DETECTION LIMIT <= 0.05 MIU/L 1.46 mIU/L Normal 0.34-5.60 [facility] Comment on above: Performed By: #### L [id number] ####[facility] [place] [address] URINALYSIS MICROSCOPIC WITH REFLEX CULTUREon 06-05-2023 CASTS IN URINE Normal [facility] Comment on above: Performed By: #### L [id number] ####[facility] ([facility])[address] [place] [address] CRYSTALS IN URINE Normal [facility] Comment on above: Performed By: #### L [id number] ####[facility] ([facility])[address] [place] [address] OTHER MICROSCOPIC ELEMENTS Normal [facility] Comment on above: Performed By: #### L [id number] ####[facility] ([facility] [place] [address] RBC (#/HPF) IN URINE SEDIMENT 6-10 Abnormal None Seen [facility] Comment on above: Performed By: #### L [id number] ####[facility] [place] [address] SQUAMOUS EPITHELIAL CELLS (#/HPF) IN URINE SEDIMENT Many Abnormal None Seen, Occasional [facility] Comment on above: Performed By: #### L [id number] ####[facility] ([facility])[address] [place] [address] WBC (LEUKOCYTE) (#/HPF) IN URINE SEDIMENT >100 Abnormal None Seen [facility] Comment on above: Performed By: #### L [id number] ####[facility] ([facility] [place] [address] URINALYSIS WITH REFLEX CULTU REon 06-05-2023 BILIRUBIN, TOTAL PRESENCE IN URINE Negative Normal Negative [facility] Comment on above: Performed By: #### L [id number] ####[facility] ([facility] [place] [address] Clarity (U) Clear Normal Clear [facility] Comment on above: Performed By: #### L [id number] ####[facility] ([facility])[address] [place] [address] Color (U) Yellow Normal Yellow [facility] Comment on above: Performed By: #### L [id number] ####[facility] ([facility])[address] [place] [address] Glucose (U) [Mass/Vol] Negative Normal Negative [facility] Comment on above: Performed By: #### L [id number] ####[facility] ([facility])[address] [place] [address] HEMOGLOBIN PRESENCE IN URINE Moderate Abnormal Negative [facility] Comment on above: Performed By: #### L [id number] ####[facility] ([facility])[address] [place] [address] Ketones Ql (U) Trace Abnormal Negative [facility] Comment on above: Performed By: #### L [id number] ####[facility] ([facility])[address] [place] [address] LEUKOCYTE ESTERASE PRESENCE IN URINE BY TEST STRIP Large Abnormal Negative [facility] Comment on above: Performed By: #### L [id number] ####[facility] ([facility])[address] [place] [address] NITRITE PRESENCE IN URINE Positive Abnormal Negative [facility] Comment on above: Performed By: #### L [id number] ####[facility] ([facility])[address] [place] [address] pH (U) 6.0 [pH] Normal 5.0-8.0 [facility] Comment on above: Performed By: #### L [id number] ####[facility] ([facility])[address] [place] [address] Protein (U) [Mass/Vol] 30 mg/dL Abnormal Negative [facility] Comment on above: Performed By: #### L [id number] ####[facility] ([facility])[address] [place] [address] Specific gravity (U) [Rel density] 1.012 Low 1.015-1.020 [facility] Comment on above: Performed By: #### L [id number] ####[facility] ([facility])[address] [place] [address] 30on 06-04-2023 30 The patient is Moderately Stable - Low risk of patient condition declining or worsening The patient's goals for the shift include comfort The clinical goals for the shift include VSS Normal [facility] Consent for Procedure/Surger yon 04-17-2023 Consent for Procedure/Surgery [id number] Normal [facility] Patient Educationon 04-16-20 23 Patient Education Urology [...] including vitamins, herbs, eye drops, creams, and zqni-zyr-mpmacee medicines. ? Any problems you or family [...] tells you to take them. ? Taking nazg-ejy-daszttr medicines, vitamins, herbs, and supplements. General instructions [...] these instructions at home: Medicines ? Take gxab-pwj-wirlkfb and prescription medicines only as told by [...] to prevent or treat constipation: ? Take bvho-pgk-zogzbdv or prescription medicines. ? Eat foods that [...] You pa (more content not included)... Normal [facility] Urology Office/Clinic Noteon 04-16-2023 Urology Office/Clinic Note [...] inflamed The Urethra was dilated to: 20-30 [place] with sounds. Specimens Removed: None Postoperative Information [...] [facility] [address], [place] [address]- Additional Instructions: w/UD Patient Education Urethral Dilation [...] Procedure/Surgical Histo (more content not included)... Normal [facility] Comment on above: Result Comment: Elec tronically [...] by: MIGUE REYNOSO Date: 2022-10-31 17:34 Normal [facility] HEMOGLOBINon 10-31-2022 Hemoglobin (Bld) [Mass/Vol] 11.8 g/dL Critically low 12.0-16.0 [facility] Comment on above: Performed By: #### C VDTB #### [facility] [address] [place] [address] [address] Kayley Hatfield BUNon 10-10-2022 Urea nitrogen [Mass/Vol] 13.0 mg/dL Normal 7.0-18.0 [facility] Comment on above: Performed By: #### L DH #### [facility] [address] [address] [address] Kayley Hatfield CALCIUMon 10-10-2022 Calcium [Mass/Vol] 9.7 mg/dL Normal 8.5-10.1 [facility] Comment on above: Performed By: #### L DH #### [facility] [address] [address] [address] Kayley Hatfield CREATININEon 10-10-2022 Creatinine [Mass/Vol] 1.19 mg/dL Critically high 0.55-1.02 [facility] Comment on above: Performed By: #### L DH #### [facility] [address] [place] [address] [address] Kayley Hatfield EGFR-AF EQUATORIAL GUINEAN 55 mL/min/1.73m2 Critically low >=60 [facility] Comment on above: Performed By: #### L DH #### [facility] [address] [place] [address] Dr. Kayley Hatfield EGFR-NON AF EQUATORIAL GUINEAN 46 mL/min/1.73m2 Critically low >=60 [facility] Comment on above: Performed By: #### L DH #### [facility] [address] [place] [address] Dr. Kayley Hatfield CRPon 10-10-2022 CRP [Mass/Vol] mg/L Normal <=1.0 [facility] Comment on above: Performed By: #### L DH #### [facility] [address] [place] [address] Dr. Kayley Hatfield MAGNESIUMon 10-10-2022 Magnesium [Mass/Vol] 1.7 mg/dL Critically low 1.8-2.4 [facility] Comment on above: Performed By: #### L DH #### [facility] [address] [place] [address] Dr. Kayley Hatfield PHOSPHORUSon 10-10-2022 Phosphate [Mass/Vol] 4.0 mg/dL Normal 2.6-4.7 [facility] Comment on above: Performed By: #### L DH #### [facility] [address] [place] [address] Dr. Kayely Hatfield SED RATE WESTERGRENon 2022 SED RATE 25 mm/hr Normal <=30 [facility] Comment on above: Performed By: #### P RTELEC #### [facility] [address] [place] [address] Dr. Kayley Hatfield CBC AUTO DIFFon 05-01-2022 BASO # 0.1 103/ul Normal 0.0-0.1 [facility] Comment on above: Performed By: #### P RBC #### [facility] [address] [place] [address] Dr. Kayley Hatfield Basophils/100 WBC (Bld) 0.5 % Normal 0.2-2.0 [facility] Comment on above: Performed By: #### P RBC #### [facility] [address] [address] [address] Kayley Hatfield EO # 0.2 103/ul Normal 0.0-0.7 [facility] Comment on above: Performed By: #### P RBC #### [facility] [address] [address] [address] Kayley Hatfield Eosinophils/100 WBC (Bld) 1.2 % Normal 0.9-7.0 [facility] Comment on above: Performed By: #### P RBC #### [facility] [address] [address] [address] Kayley Hatfield Erythrocyte distribution width (RBC) [Ratio] 14.9 % Normal 11.0-15.0 [facility] Comment on above: Performed By: #### P RBC #### [facility] [address] [place] [address] Dr. Kayley Hatfield Hematocrit (Bld) [Volume fraction] 34.2 % Critically low 36.0-48.0 [facility] Comment on above: Performed By: #### P RBC #### [facility] [address] [place] [address] Dr. Kayley Hatfield Hemoglobin (Bld) [Mass/Vol] 10.3 g/dL Critically low 12.0-16.0 [facility] Comment on above: Performed By: #### P RBC #### [facility] [address] [place] [address] Dr. Kayley Hatfield IG # 0.19 10e3/ul Critically high 0.00-0.03 [facility] Comment on above: Performed By: #### P RBC #### [facility] [address] [place] [address] Dr. Kayley Hatfield IG % 1.3 % Critically high 0.0-0.5 [facility] Comment on above: Performed By: #### P RBC #### [facility] [address] [address] [address] Kayley Hatfield LYMPH # 1.1 103/ul Critically low 1.2-3.8 [facility] Comment on above: Performed By: #### P RBC #### [facility] [address] [address] [address] Kayley Hatfield Lymphocytes/100 WBC (Bld) 7.3 % Critically low 20.5-60.0 [facility] Comment on above: Performed By: #### P RBC #### [facility] [address] [address] [address] Kayley Hatfield MANUAL DIFF REQ NO Normal [facility] Comment on above: Performed By: #### P RBC #### [facility] [address] [address] [address] Kayley Hatfield MCH (RBC) [Entitic mass] 28.4 pg Normal 26.7-34.0 [facility] Comment on above: Performed By: #### P RBC #### [facility] [address] [place] [address] Dr. Kayley Hatfield MCHC (RBC) [Mass/Vol] 30.1 g/dL Normal 29.9-35.2 [facility] Comment on above: Performed By: #### P RBC #### [facility] [address] [place] [address] Dr. Kayley Hatfield MCV (RBC) [Entitic vol] 94.2 fL Normal 81.0-99.0 [facility] Comment on above: Performed By: #### P RBC #### [facility] [address] [place] [address] Dr. Kayley Hatfield MONO # 0.6 103/ul Normal 0.3-0.8 [facility] Comment on above: Performed By: #### P RBC #### [facility] [address] [place] [address] Dr. Kayley Hatfield Monocytes/100 WBC (Bld) 4.0 % Normal 1.7-12.0 [facility] Comment on above: Performed By: #### P RBC #### [facility] [address] [place] [address] Dr. Kayley Hatfield NEUT # 12.5 103/ul Critically high 1.4-6.5 [facility] Comment on above: Performed By: #### P RBC #### [facility] [address] [address] [address] Kayley Hatfield Neutrophils/100 WBC (Bld) 85.7 % Critically high 43.0-75.0 [facility] Comment on above: Performed By: #### P RBC #### [facility] [address] [address] [address] Kayley Hatfield Platelet mean volume (Bld) [Entitic vol] 8.5 fL Critically low 9.5-13.5 [facility] Comment on above: Performed By: #### P RBC #### [facility] [address] [address] [address] Kayley Hatfield PLT 574 103/ul Critically high 150-450 [facility] Comment on above: Performed By: #### P RBC #### [facility] [address] [place] [address] Dr. Kayley Hatfield RBC 3.63 106/ul Critically low 4.20-5.40 [facility] Comment on above: Performed By: #### P RBC #### [facility] [address] [place] [address] Dr. Kayley Hatfield WBC 14.6 103/ul Critically high 4.0-11.0 [facility] Comment on above: Performed By: #### P RBC #### [facility] [address] [place] [address] Dr. Kayley Hatfield MAGNESIUMon 05-01-2022 Magnesium [Mass/Vol] 2.1 mg/dL Normal 1.8-2.4 [facility] Comment on above: Performed By: #### O BSCRN #### [facility] [address] [place] [address] Dr. Kayley Hatfield PROF CHEM 8 (BAS METB)on Anion gap [Moles/Vol] 8.6 mmol/L Normal [facility] Comment on above: Performed By: #### O BSCRN #### [facility] [address] [place] [address] Dr. Kayley Hatfield Calcium [Mass/Vol] 9.0 mg/dL Normal 8.5-10.1 [facility] Comment on above: Performed By: #### O BSCRN #### [facility] [address] [address] [address] Kayley Hatfield Chloride [Moles/Vol] 101 mmol/L Normal 98-107 [facility] Comment on above: Performed By: #### O BSCRN #### [facility] [address] [address] [address] Kayley Hatfield CO2 [Moles/Vol] 33.0 mmol/L Critically high 21.0-32.0 [facility] Comment on above: Performed By: #### O BSCRN #### [facility] [address] [address] [address] Kayley Hatfield Creatinine [Mass/Vol] 0.94 mg/dL Normal 0.55-1.02 [facility] Comment on above: Performed By: #### O BSCRN #### [facility] [address] [address] [address] Kayley Hatfield EGFR-AF EQUATORIAL GUINEAN >60 Normal >=60 [facility] Comment on above: Performed By: #### O BSCRN #### [facility] [address] [address] [address] Kayley Hatfield EGFR-NON AF EQUATORIAL GUINEAN >60 Normal >=60 [facility] Comment on above: Performed By: #### O BSCRN #### [facility] [address] [address] [address] Kayley Hatfield Glucose [Mass/Vol] 143 mg/dL Critically high 74-106 [facility] Comment on above: Performed By: #### O BSCRN #### [facility] [address] [address] [address] Kayley Hatfield Potassium [Moles/Vol] 4.6 mmol/L Normal 3.5-5.1 [facility] Comment on above: Performed By: #### O BSCRN #### [facility] [address] [address] [address] Kayley Hatfield Sodium [Moles/Vol] 138 mmol/L Normal 136-145 [facility] Comment on above: Performed By: #### O BSCRN #### [facility] [address] [address] [address] Kayley Hatfield Urea nitrogen [Mass/Vol] 15.0 mg/dL Normal 7.0-18.0 [facility] Comment on above: Performed By: #### O BSCRN #### [facility] [address] [place] [address] Dr. Kayley Hatfield Urea nitrogen/Creatinine [Mass ratio] 16.0 mg/mg Normal [facility] Comment on above: Performed By: #### O BSCRN #### [facility] [address] [place] [address] Dr. Kayley Hatfield CBC AUTO DIFFon 04-26-2022 BASO # 0.1 103/ul Normal 0.0-0.1 [facility] Comment on above: Performed By: #### P RBC #### [facility] [address] [place] [address] Dr. Kayley Hatfield Basophils/100 WBC (Bld) 0.5 % Normal 0.2-2.0 [facility] Comment on above: Performed By: #### P RBC #### [facility] [address] [place] [address] Dr. Kayley Hatfield EO # 0.2 103/ul Normal 0.0-0.7 [facility] Comment on above: Performed By: #### P RBC #### [facility] [address] [place] [address] Dr. Kayley Hatfield Eosinophils/100 WBC (Bld) 1.8 % Normal 0.9-7.0 [facility] Comment on above: Performed By: #### P RBC #### [facility] [address] [place] [address] Dr. Kayley Hatfield Erythrocyte distribution width (RBC) [Ratio] 14.7 % Normal 11.0-15.0 [facility] Comment on above: Performed By: #### P RBC #### [facility] [address] [place] [address] Dr. Kayley Hatfield Hematocrit (Bld) [Volume fraction] 32.0 % Critically low 36.0-48.0 [facility] Comment on above: Performed By: #### P RBC #### [facility] [address] [address] [address] Kayley Hatfield Hemoglobin (Bld) [Mass/Vol] 9.9 g/dL Critically low 12.0-16.0 [facility] Comment on above: Performed By: #### P RBC #### [facility] [address] [address] [address] Kayley Hatfield IG # 0.07 10e3/ul Critically high 0.00-0.03 [facility] [place] Comment on above: Performed By: #### P RBC #### [facility] [address] [address] [address] Kayley Hatfield IG % 0.6 % Critically high 0.0-0.5 [facility] Comment on above: Performed By: #### P RBC #### [facility] [address] [address] [address] Kayley Hatfield LYMPH # 1.2 103/ul Normal 1.2-3.8 [facility] Comment on above: Performed By: #### P RBC #### [facility] [address] [address] [address] Kayley Hatfield Lymphocytes/100 WBC (Bld) 10.9 % Critically low 20.5-60.0 [facility] Comment on above: Performed By: #### P RBC #### [facility] [address] [address] [address] Kayley Hatfield MANUAL DIFF REQ NO Normal [facility] Comment on above: Performed By: #### P RBC #### [facility] [address] [address] [address] Kayley Hatfield MCH (RBC) [Entitic mass] 28.4 pg Normal 26.7-34.0 [facility] Comment on above: Performed By: #### P RBC #### [facility] [address] [address] [address] Kayley Hatfield MCHC (RBC) [Mass/Vol] 30.9 g/dL Normal 29.9-35.2 [facility] Comment on above: Performed By: #### P RBC #### [facility] [address] [address] [address] Kayley Hatfield MCV (RBC) [Entitic vol] 92.0 fL Normal 81.0-99.0 [facility] Comment on above: Performed By: #### P RBC #### [facility] [address] [address] [address] Kayley Hatfield MONO # 1.4 103/ul Critically high 0.3-0.8 [facility] Comment on above: Performed By: #### P RBC #### [facility] [address] [address] [address] Kayley Hatfield Monocytes/100 WBC (Bld) 11.9 % Normal 1.7-12.0 [facility] Comment on above: Performed By: #### P RBC #### [facility] [address] [place] [address] Dr. Kayley Hatfield NEUT # 8.4 103/ul Critically high 1.4-6.5 [facility] Comment on above: Performed By: #### P RBC #### [facility] [address] [place] [address] Dr. Kayley Hatfield Neutrophils/100 WBC (Bld) 74.3 % Normal 43.0-75.0 [facility] Comment on above: Performed By: #### P RBC #### [facility] [address] [place] [address] Dr. Kayley Hatfield Platelet mean volume (Bld) [Entitic vol] 8.8 fL Critically low 9.5-13.5 [facility] Comment on above: Performed By: #### P RBC #### [facility] [address] [place] [address] Dr. Kayley Hatfield PLT 953 103/ul Critically high 150-450 [facility] Comment on above: Performed By: #### P RBC #### [facility] [address] [address] [address] Kayley Hatfield RBC 3.48 106/ul Critically low 4.20-5.40 [facility] Comment on above: Performed By: #### P RBC #### [facility] [address] [address] [address] Kayley Hatfield WBC 11.3 103/ul Critically high 4.0-11.0 [facility] Comment on above: Performed By: #### P RBC #### [facility] [address] [address] [address] Kayley Hatfield POINT OF CARE GLUCOSEon 04-08 Glucose [Mass/Vol] 225 mg/dL Critically high 74-106 [facility] Comment on above: Performed By: #### B LDCX1 #### [facility] [address] [address] [address] Kayley Hatfield PROF CHEM 8 (BAS METB)on Anion gap [Moles/Vol] 10.7 mmol/L Normal [facility] Comment on above: Performed By: #### P RBC #### [facility] [address] [place] [address] Dr. Kayley Hatfield Calcium [Mass/Vol] 9.2 mg/dL Normal 8.5-10.1 [facility] Comment on above: Performed By: #### P RBC #### [facility] [address] [place] [address] Dr. Kayley Hatfield Chloride [Moles/Vol] 103 mmol/L Normal 98-107 [facility] Comment on above: Performed By: #### P RBC #### [facility] [address] [place] [address] Dr. Kayley Hatfield CO2 [Moles/Vol] 29.2 mmol/L Normal 21.0-32.0 [facility] Comment on above: Performed By: #### P RBC #### [facility] [address] [place] [address] Dr. Kayley Hatfield Creatinine [Mass/Vol] 0.85 mg/dL Normal 0.55-1.02 [facility] Comment on above: Performed By: #### P RBC #### [facility] [address] [place] [address] Dr. Kayley Hatfield EGFR-AF EQUATORIAL GUINEAN >60 Normal >=60 [facility] Comment on above: Performed By: #### P RBC #### [facility] [address] [address] [address] Kayley Hatfield EGFR-NON AF EQUATORIAL GUINEAN >60 Normal >=60 [facility] Comment on above: Performed By: #### P RBC #### [facility] [address] [address] [address] Kayley Hatfield Glucose [Mass/Vol] 81 mg/dL Normal 74-106 [facility] Comment on above: Performed By: #### P RBC #### [facility] [address] [address] [address] Kayley Hatfield Potassium [Moles/Vol] 3.9 mmol/L Normal 3.5-5.1 [facility] Comment on above: Performed By: #### P RBC #### [facility] [address] [address] [address] Kayley Hatfield Sodium [Moles/Vol] 139 mmol/L Normal 136-145 [facility] Comment on above: Performed By: #### P RBC #### [facility] [address] [address] [address] Kayley Hatfield Urea nitrogen [Mass/Vol] 9.0 mg/dL Normal 7.0-18.0 [facility] Comment on above: Performed By: #### P RBC #### [facility] [address] [address] [address] Kayley Hatfield Urea nitrogen/Creatinine [Mass ratio] 10.6 mg/mg Normal [facility] Comment on above: Performed By: #### P RBC #### [facility] [address] [address] [address] Kayley Hatfield XR CHEST 2 Von [...] Date: 2022-04-26 09:59 Normal [facility] BNPon 04-25-2022 Natriuretic peptide B (Bld) [Mass/Vol] 234.0 pg/mL Normal <=900.0 [facility] Comment on above: Performed By: #### P RTELEC #### [facility] [address] [place] [address] Dr. Kayley Hatfield CBC AUTO DIFFon 04-25-2022 BASO # 0.1 103/ul Normal 0.0-0.1 [facility] Comment on above: Performed By: #### P RBC #### [facility] [address] [place] [address] Dr. Kayley Hatfield Basophils/100 WBC (Bld) 0.4 % Normal 0.2-2.0 [facility] Comment on above: Performed By: #### P RBC #### [facility] [address] [place] [address] Dr. Kayley Hatfield EO # 0.2 103/ul Normal 0.0-0.7 [facility] Comment on above: Performed By: #### P RBC #### [facility] [address] [place] [address] Dr. Kayley Hatfield Eosinophils/100 WBC (Bld) 1.0 % Normal 0.9-7.0 [facility] Comment on above: Performed By: #### P RBC #### [facility] [address] [place] [address] Dr. Kayley Hatfield Erythrocyte distribution width (RBC) [Ratio] 14.8 % Normal 11.0-15.0 [facility] Comment on above: Performed By: #### P RBC #### [facility] [address] [place], [place] [id number] Dr. Kayley Hatfield Hematocrit (Bld) [Volume fraction] 35.4 % Critically low 36.0-48.0 [facility] Comment on above: Performed By: #### P RBC #### [facility] [address] [place] [address] Dr. Kayley Hatfield Hemoglobin (Bld) [Mass/Vol] 10.9 g/dL Critically low 12.0-16.0 [facility] Comment on above: Performed By: #### P RBC #### [facility] [address] [place] [address] Dr. Kayley Hatfield IG # 0.08 10e3/ul Critically high 0.00-0.03 [facility] Comment on above: Performed By: #### P RBC #### [facility] [address] [place] [address] Dr. Kayley Hatfield IG % 0.5 % Normal 0.0-0.5 [facility] Comment on above: Performed By: #### P RBC #### [facility] [address] [place] [address] Dr. Kayley Hatfield LYMPH # 1.2 103/ul Normal 1.2-3.8 [facility] Comment on above: Performed By: #### P RBC #### [facility] [address] [place] [address] Dr. Kayley Hatfield Lymphocytes/100 WBC (Bld) 7.4 % Critically low 20.5-60.0 [facility] Comment on above: Performed By: #### P RBC #### [facility] [address] [place] [address] Dr. Kayley Hatfield MANUAL DIFF REQ NO Normal [facility] Comment on above: Performed By: #### P RBC #### [facility] [address] [place] [address] Dr. Kayley Hatfield MCH (RBC) [Entitic mass] 27.9 pg Normal 26.7-34.0 [facility] Comment on above: Performed By: #### P RBC #### [facility] [address] [place] [address] Dr. Kayley Hatfield MCHC (RBC) [Mass/Vol] 30.8 g/dL Normal 29.9-35.2 [facility] Comment on above: Performed By: #### P RBC #### [facility] [address] [address] [address] Kayley Hatfield MCV (RBC) [Entitic vol] 90.5 fL Normal 81.0-99.0 [facility] Comment on above: Performed By: #### P RBC #### [facility] [address] [address] [address] Kayley Hatfield MONO # 1.5 103/ul Critically high 0.3-0.8 [facility] Comment on above: Performed By: #### P RBC #### [facility] [address] [place] [address] Dr. Kayley Hatfield Monocytes/100 WBC (Bld) 8.7 % Normal 1.7-12.0 [facility] Comment on above: Performed By: #### P RBC #### [facility] [address] [place] [address] Dr. Kayley Hatfield NEUT # 13.8 103/ul Critically high 1.4-6.5 [facility] Comment on above: Performed By: #### P RBC #### [facility] [address] [place] [address] Dr. Kayley Hatfield Neutrophils/100 WBC (Bld) 82.0 % Critically high 43.0-75.0 [facility] Comment on above: Performed By: #### P RBC #### [facility] [address] [address] [address] Kayley Hatfield Platelet mean volume (Bld) [Entitic vol] 8.9 fL Critically low 9.5-13.5 [facility] Comment on above: Performed By: #### P RBC #### [facility] [address] [place] [address] Dr. Kayley Hatfield PLT 1076 103/ul Critically high 150-450 [facility] Comment on above: Performed By: #### P RBC #### [facility] [address] [place] [address] Dr. Kayley Hatfield RBC 3.91 106/ul Critically low 4.20-5.40 [facility] Comment on above: Performed By: #### P RBC #### [facility] [address] [place], [place] [address] Dr. Kayley Hatfield WBC 16.8 103/ul Critically high 4.0-11.0 [facility] Comment on above: Performed By: #### P RBC #### [facility] [address] [place], [place] [address] HEAD WO CONon [...] by: MIGUE REYNOSO Date: 2022-04-25 14:59 Normal [facility] CTA CHEST WO W CONon 022 CTA [...] Date: 2022-04-25 15:18 Normal [facility] Covid-19 PCR (CVDTB)on 04-08 SARS-CoV-2 (COVID-19) RNA ELBA+probe Ql (Unsp spec) Not detected Normal NOT DETECTED [facility] Comment on above: Result Comment: When [...] for this test is supported by the Service Desk Technician of Health and Human Service's declaration that [...] By: #### C VDTBH #### [facility] [address] [place] [address] Dr. Kayley Hatfield ER URINE PROFILEon 2 Bilirubin Ql (U) Negative Normal NEGATIVE [facility] Comment on above: Performed By: #### C VDTBH #### [facility] [address] [place] [address] Dr. Kayley Hatfield Clarity (U) CLEAR Normal CLEAR [facility] Comment on above: Performed By: #### C VDTBH #### [facility] [address] [place] [address] Dr. Kayley Hatfield Color (U) LT. YELLOW Normal YELLOW [facility] Comment on above: Performed By: #### C VDTBH #### [facility] [address] [place] [address] Dr. Kayley [place] A micrscopic examination will be performed if indicated. Normal [facility] Comment on above: Performed By: #### C VDTBH #### [facility] [address] [place] [address] Dr. Kayley Hatfield Glucose Ql (U) Negative Normal NEGATIVE [facility] Comment on above: Performed By: #### C VDTBH #### [facility] [address] [place] [address] Dr. Kayley Hatfield Hemoglobin Ql (U) TRACE-INTACT Abnormal NEGATIVE [facility] Comment on above: Performed By: #### C VDTBH #### [facility] [address] [place] [address] Dr. Kayley Hatfield Ketones Ql (U) Negative Normal NEGATIVE [facility] Comment on above: Performed By: #### C VDTBH #### [facility] [address] [place] [address] Dr. Kayley Hatfield LEUKOCYTES Negative Normal NEGATIVE [facility] Comment on above: Performed By: #### C VDTBH #### [facility] [address] [place] [address] Dr. Kayley Hatfield Nitrite Ql (U) Negative Normal NEGATIVE [facility] Comment on above: Performed By: #### C VDTBH #### [facility] [address] [place] [address] Dr. Kayley Hatfield pH (U) 8.0 [pH] Normal 5-9 [facility] Comment on above: Performed By: #### C VDTBH #### [facility] [address] [place] [address] Dr. Kayley Hatfield SPEC GRAVITY 1.010 Normal 1.005-<=1.025 [facility] Comment on above: Performed By: #### C VDTBH #### [facility] [address] [place] [address] Dr. Kayley Hatfield UA PROTEIN Negative Normal NEGATIVE/ TRACE [facility] Comment on above: Performed By: #### C VDTBH #### [facility] [address] [place] [address] Dr. Kayley Hatfield UR MICRO IND INDICATED Normal [facility] Comment on above: Performed By: #### C VDTBH #### [facility] [address] [place] [address] Dr. Kayley Hatfield Urobilinogen Qn (U) 0.2 {Lu'U}/dL Normal 0.2 - 1. 0 [facility] Comment on above: Performed By: #### C VDTBH #### [facility] [address] [place] [address] Dr. Kayley Hatfield LACTATE/LACTIC ACIDon 2021 Lactate [Moles/Vol] 1.1 mmol/L Normal 0.4-1.9 [facility] Comment on above: Performed By: #### P RTELEC #### [facility] [address] [place] [address] Dr. Kayley Hatfield PH VENOUS BLOODon 04-25-2022 PCO2 VENOUS 54.5 mmHg Critically high 40.0-52.0 [facility] Comment on above: Performed By: #### L DH #### [facility] [address] [place] [address] Dr. Kayley Hatfield pH VENOUS 7.385 Normal 7.330-7.430 [facility] Comment on above: Performed By: #### L DH #### [facility] [address] [place] [address] Dr. Kayley Hatfield POINT OF CARE GLUCOSEon 04-08 Glucose [Mass/Vol] 91 mg/dL Normal 74-106 [facility] Comment on above: Performed By: #### O BSCRN #### [facility] [address] [place] [address] Dr. Kayley Hatfield Glucose [Mass/Vol] 116 mg/dL Critically high 74-106 [facility] Comment on above: Performed By: #### O BSCRN #### [facility] [address] [place] [address] Dr. Kayley Hatifeld PROF 14(COMP METB)on 022 Albumin [Mass/Vol] 2.7 g/dL Critically low 3.4-5.0 [facility] Comment on above: Performed By: #### O BSCRN #### [facility] [address] [place] [address] Dr. Kayley Hatfield Albumin/Globulin [Mass ratio] 0.6 {ratio} Normal [facility] Comment on above: Performed By: #### O BSCRN #### [facility] [address] [place] [address] Dr. Kayley Hatfield ALP [Catalytic activity/Vol] 132 U/L Critically high 46-116 [facility] Comment on above: Performed By: #### O BSCRN #### [facility] [address] [place] [address] Dr. Kayley Hatfield ALT [Catalytic activity/Vol] 21 U/L Normal 14-59 [facility] Comment on above: Performed By: #### O BSCRN #### [facility] [address] [address] [address] Kayley Hatfield Anion gap [Moles/Vol] 8.1 mmol/L Normal [facility] Comment on above: Performed By: #### O BSCRN #### [facility] [address] [address] [address] Kayley Hatfield AST [Catalytic activity/Vol] 23 U/L Normal 15-37 [facility] Comment on above: Performed By: #### O BSCRN #### [facility] [address] [address] [address] Kayley Hatfield Bilirubin [Mass/Vol] 0.3 mg/dL Normal 0.2-1.0 [facility] Comment on above: Performed By: #### O BSCRN #### [facility] [address] [place] [address] Dr. Kayley Hatfield Calcium [Mass/Vol] 9.4 mg/dL Normal 8.5-10.1 [facility] Comment on above: Performed By: #### O BSCRN #### [facility] [address] [address] [address] Kayley Hatfield Chloride [Moles/Vol] 100 mmol/L Normal 98-107 [facility] Comment on above: Performed By: #### O BSCRN #### [facility] [address] [place] [address] Dr. Kayley Hatfield CO2 [Moles/Vol] 31.8 mmol/L Normal 21.0-32.0 [facility] Comment on above: Performed By: #### O BSCRN #### [facility] [address] [place] [address] Dr. Kayley Hatfield Creatinine [Mass/Vol] 0.79 mg/dL Normal 0.55-1.02 [facility] Comment on above: Performed By: #### O BSCRN #### [facility] [address] [place] [address] Dr. Kayley Hatfield EGFR-AF EQUATORIAL GUINEAN >60 Normal >=60 [facility] Comment on above: Performed By: #### O BSCRN #### [facility] [address] [address] [address] Kayley Hatfield EGFR-NON AF EQUATORIAL GUINEAN >60 Normal >=60 [facility] Comment on above: Performed By: #### O BSCRN #### [facility] [address] [address] [address] Kayley Hatfield Globulin (S) [Mass/Vol] 4.2 g/dL Normal [facility] Comment on above: Performed By: #### O BSCRN #### [facility] [address] [address] [address] Kayley Hatfield Glucose [Mass/Vol] 134 mg/dL Critically high 74-106 [facility] Comment on above: Performed By: #### O BSCRN #### [facility] [address] [address] [address] Kayley Hatfield Potassium [Moles/Vol] 3.9 mmol/L Normal 3.5-5.1 [facility] Comment on above: Performed By: #### O BSCRN #### [facility] [address] [address] [address] Kayley Hatfield Protein [Mass/Vol] 6.9 g/dL Normal 6.4-8.2 [facility] Comment on above: Performed By: #### O BSCRN #### [facility] [address] [address] [address] Kayley Hatfield Sodium [Moles/Vol] 136 mmol/L Normal 136-145 [facility] Comment on above: Performed By: #### O BSCRN #### [facility] [address] [address] [address] Kayley Hatfield Urea nitrogen [Mass/Vol] 10.0 mg/dL Normal 7.0-18.0 [facility] Comment on above: Performed By: #### O BSCRN #### [facility] [address] [address] [address] Kayley Hatfield Urea nitrogen/Creatinine [Mass ratio] 12.7 mg/mg Normal [facility] Comment on above: Performed By: #### O BSCRN #### [facility] [address] [place] [address] Dr. Kayley Hatfield PROTIMEon 04-25-2022 INR Coag (PPP) [Relative time] 1.08 {INR} Normal [facility] Comment on above: Performed By: #### P RTELEC #### [facility] [address] [place] [address] Dr. Kayley [place] INR GUIDELINES SEE BELOW Normal [facility] Comment on above: Result Comment: JOAQUIM RED INR: 2.0 - 3.0 CONDITIONS NOT LISTED BELOW 2.5 - 3.5 FOR PROSTHETIC HEART VALVE REPLACEMENT 2.5 - 3.5 RECURRENT THROMBOSIS Performed By: #### P RTELEC #### [facility] [address] [place] [address] Dr. Kayley Hatfield PT Coag (PPP) [Time] 11.6 s Normal 9.0-11.6 [facility] Comment on above: Performed By: #### P RTELEC #### [facility] [address] [place] [address] Dr. Kayley [place] PTTon 04-25-2022 aPTT Coag (Bld) [Time] 31.1 s Normal 22.3-36.2 [facility] Comment on above: Performed By: #### P RTELEC #### [facility] [address] [place] [address] Dr. Kayley [place]field TROPONIN, HIGH SENSITIVITYon 04-25-2022 HSTROP 9.6 pg/mL Normal 4.0-51.3 [facility] Comment on above: Result Comment: CUT- OFF POINTS HAVE BEEN ESTABLISHED BASED ON THE FOURTH UNIVERSAL DEFINITIONS OF MYOCARDIAL INFARCTION. THE UPPER REFERENCE LIMIT (URL) OF TROPONIN, DEFINED THE 99TH PERCENTILE OF cTnI DISTRIBUTION IN A REFERENCE POPULATION, HAS BEEN CONFIRMED THE DECISION THRESHOLD FOR ID DIAGNOSIS. Performed By: #### P RTELEC #### [facility] [address] [place] [address] Dr. Kayley [place]field TSHon 04-25-2022 TSH 1.431 uIU/mL Normal 0.358-3.740 [facility] Comment on above: Performed By: #### P RTELEC #### [facility] [address] [place] [address] Dr. Kayley [place] URINE MICROSCOPIC ONLYon BACTERIA NONE SEEN Normal NONE SEEN [facility] Comment on above: Performed By: #### C VDTBH #### [facility] [address] [place] [address] Dr. Kayley [place]field Bacteria identified Cx Nom (U) NOT INDICATED Normal [facility] Comment on above: Performed By: #### C VDTBH #### [facility] [address] [place] [address] Dr. Kayley Hatfield CAST NONE SEEN Normal NONE SEEN [facility] Comment on above: Performed By: #### C VDTBH #### [facility] [address] [place] [address] Dr. Kayley Hatfield Crystals LM Nom (Urine sed) NONE SEEN Normal NONE SEEN [facility] Comment on above: Performed By: #### C VDTBH #### [facility] [address] [place] [address] Dr. Kayley [place]field Epithelial cells LM Ql (Urine sed) FEW Abnormal NONE SEEN /RARE [facility] Comment on above: Performed By: #### C VDTBH #### [facility] [address] [place] [address] Dr. Kayley [place]field MUCOUS NONE SEEN Normal NONE SEEN [facility] Comment on above: Performed By: #### C VDTBH #### [facility] [address] [place] [address] Dr. Kayley Htafield RBC 2-5 Abnormal 0-2 [facility] Comment on above: Performed By: #### C VDTBH #### [facility] [address] [place] [address] Dr. Kayley [place]field WBC NONE SEEN Normal NONE SEEN [facility] Comment on above: Performed By: #### C VDTBH #### [facility] [address] [place] [address] Dr. Kayley Hatfield IMMUNOFIXATION(KENNETH),PROTEIN ELEC(PE),FREon 03-31-2022 Albumin [Mass/Vol] 3.6 g/dL Normal 2.9-4.4 [facility] Comment on above: Performed By: #### B [id number] #### [facility] [address] [place] [address] Dr. Kayley [place]field Albumin/Globulin [Mass ratio] 1.6 {ratio} Normal 0.7-1.7 [facility] Comment on above: Performed By: #### B [id number] #### [facility] [address] [place] [address] Dr. Kayley Hatfield Obaau-0-Curxicdq 0.3 g/dL Normal 0.0-0.4 [facility] Comment on above: Performed By: #### B [id number] #### [facility] [address] [place] [address] Dr. Kayley Hatfield Sngey-8-Fheyeivt 0.8 g/dL Normal 0.4-1.0 [facility] Comment on above: Performed By: #### B [id number] #### [facility] [address] [place] [address] Dr. Kayley Hatfield Beta Globulin 1.0 g/dL Normal 0.7-1.3 [facility] Comment on above: Performed By: #### B [id number] #### [facility] [address] [place] [address] Dr. Kayley Hatfield Free [place] Lt Chains,S 16.0 mg/L Normal 3.3-19.4 [facility] Comment on above: Performed By: #### B [id number] #### [facility] [address] [place] [address] Dr. Kayley Hatfield Free Lambda Lt Chains,S 10.1 mg/L Normal 5.7-26.3 [facility] Comment on above: Performed By: #### B [id number] #### [facility] [address] [place] [address] Dr. Kayley Hatfield Gamma Globulin 0.4 g/dL Normal 0.4-1.8 [facility] Comment on above: Performed By: #### B [id number] #### [facility] [address] [place] [address] Dr. Kayley Hatfield Globulin (S) [Mass/Vol] 2.4 g/dL Normal 2.2-3.9 [facility] Comment on above: Performed By: #### B [id number] #### [facility] [address] [place] [address] Dr. Kayley Hatfield Immunofixation Result, Serum Comment Normal [facility] Comment on above: Result Comment: No m onoclonality detected. Performed By: #### B LDCX1 #### [facility] [address] [address] [address] Kayley Hatfield Immunoglobulin A, Qn, Serum 128 mg/dL Normal 87-352 [facility] Comment on above: Performed By: #### B [id number] #### [facility] [address] [place] [address] Dr. Kayley Hatfield Immunoglobulin G, Qn, Serum 487 mg/dL Critically low 586-1602 [facility] Comment on above: Performed By: #### B [id number] #### [facility] [address] [address] [address] Kayley [place]field Immunoglobulin M, Qn, Serum 38 mg/dL Normal 26-217 [facility] Comment on above: Performed By: #### B [id number] #### [facility] [address] [place] [address] Dr. Kayley Hatfield [place]/Lambda Ratio, S 1.58 Normal 0.26-1.65 [facility] Comment on above: Performed By: #### B LDCX1 #### [facility] [address] [address] [address] Kayley Hatfield M-Sandip Not Observed Normal Not Observed [facility] Comment on above: Performed By: #### B LDCX1 #### [facility] [address] [place] [address] Dr. Kayley Hatfield PDF . Normal [facility] Comment on above: Performed By: #### B LDCX1 #### [facility] [address] [place] [address] Dr. Kayley Hatfield Please note: Comment Normal [facility] Comment on above: Result Comment: Prot ein electrophoresis scan will follow via computer, mail, or chute puller delivery. Performed By: #### B LDCX1 #### [facility] [address] [place] [address] Dr. Kayley Hatfield Protein [Mass/Vol] 6.0 g/dL Normal 6.0-8.5 [facility] Comment on above: Performed By: #### B [id number] #### [facility] [address] [place] [address] Dr. Kayley Hatfield CBC AUTO DIFFon 03-30-2022 BASO # 0.1 103/ul Normal 0.0-0.1 [facility] Comment on above: Performed By: #### P RBC #### [facility] [address] [place] [address] Dr. Kayley Hatfield Basophils/100 WBC (Bld) 0.4 % Normal 0.2-2.0 [facility] Comment on above: Performed By: #### P RBC #### [facility] [address] [place] [address] Dr. Kyaley Hatfield EO # 0.2 103/ul Normal 0.0-0.7 [facility] Comment on above: Performed By: #### P RBC #### [facility] [address] [place] [address] Dr. Kayley Hatfield Eosinophils/100 WBC (Bld) 1.1 % Normal 0.9-7.0 [facility] Comment on above: Performed By: #### P RBC #### [facility] [address] [place] [address] Dr. Kayley Hatfield Erythrocyte distribution width (RBC) [Ratio] 0.0 % Critically low 11.0-15.0 [facility] Comment on above: Performed By: #### P RBC #### [facility] [address] [place] [address] Dr. Kayley Hatfield Hematocrit (Bld) [Volume fraction] 24.0 % Critically low 36.0-48.0 [facility] Comment on above: Performed By: #### P RBC #### [facility] [address] [place] [address] Dr. Kayley Hatfield Hemoglobin (Bld) [Mass/Vol] 7.2 g/dL Critically low 12.0-16.0 [facility] Comment on above: Performed By: #### P RBC #### [facility] [address] [address] [address] Kayley Hatfield IG # 0.10 10e3/ul Critically high 0.00-0.03 [facility] Comment on above: Performed By: #### P RBC #### [facility] [address] [address] [address] Kayley Hatfield IG % 0.6 % Critically high 0.0-0.5 [facility] Comment on above: Performed By: #### P RBC #### [facility] [address] [place] [address] Dr. Kayley Hatfield LYMPH # 1.5 103/ul Normal 1.2-3.8 [facility] Comment on above: Performed By: #### P RBC #### [facility] [address] [place] [address] Dr. Kayley Hatfield Lymphocytes/100 WBC (Bld) 9.0 % Critically low 20.5-60.0 [facility] Comment on above: Performed By: #### P RBC #### [facility] [address] [place] [address] Dr. Kayley Hatfield MANUAL DIFF REQ NO Normal [facility] Comment on above: Performed By: #### P RBC #### [facility] [address] [place] [address] Dr. Kayley Hatfield MCH (RBC) [Entitic mass] 27.3 pg Normal 26.7-34.0 [facility] Comment on above: Performed By: #### P RBC #### [facility] [address] [place] [address] Dr. Kayley Hatfield MCHC (RBC) [Mass/Vol] 30.0 g/dL Normal 29.9-35.2 [facility] Comment on above: Performed By: #### P RBC #### [facility] [address] [place] [address] Dr. Kayley Hatfield MCV (RBC) [Entitic vol] 90.9 fL Normal 81.0-99.0 [facility] Comment on above: Performed By: #### P RBC #### [facility] [address] [address] [address] Kayley Hatfield MONO # 2.3 103/ul Critically high 0.3-0.8 [facility] Comment on above: Performed By: #### P RBC #### [facility] [address] [address] [address] Kayley Hatfield Monocytes/100 WBC (Bld) 13.8 % Critically high 1.7-12.0 [facility] Comment on above: Performed By: #### P RBC #### [facility] [address] [address] [address] Kayley Hatfield NEUT # 12.7 103/ul Critically high 1.4-6.5 [facility] Comment on above: Performed By: #### P RBC #### [facility] [address] [place] [address] Dr. Kayley Hatfield Neutrophils/100 WBC (Bld) 75.1 % Critically high 43.0-75.0 [facility] Comment on above: Performed By: #### P RBC #### [facility] [address] [place] [address] Dr. Kayley Hatfield Platelet mean volume (Bld) [Entitic vol] 8.9 fL Critically low 9.5-13.5 [facility] Comment on above: Performed By: #### P RBC #### [facility] [address] [place] [address] Dr. Kayley Hatfield PLT 782 103/ul Critically high 150-450 [facility] Comment on above: Performed By: #### P RBC #### [facility] [address] [address] [address] Kayley Hatfield RBC 2.64 106/ul Critically low 4.20-5.40 [facility] Comment on above: Performed By: #### P RBC #### [facility] [address] [address] [address] Kayley Hatfield WBC 16.9 103/ul Critically high 4.0-11.0 [facility] Comment on above: Performed By: #### P RBC #### [facility] [address] [address] [address] Kayley Hatfield PRBC LEUKOREDUCEDon 03-30-20 ABO and Rh group Nom (Bld) Cross Match Result Compatible Unit Blood Type O Pos Unit Number [id number] Status Information Transfused Product ID Red Blood Cells Product Code [id number] Cross Match Result Compatible Unit Blood Type O Pos Unit Number [id number] Status Information Transfused Product ID Red Blood Cells Product Code [id number] Normal [facility] Comment on above: Performed By: #### P RBC #### [facility] [address] [place] [address] Dr. Kayley Hatfield PROF CHEM 8 (BAS METB)on Anion gap [Moles/Vol] 6.9 mmol/L Normal [facility] Comment on above: Performed By: #### P RBC #### [facility] [address] [place] [address] Dr. Kayley Hatfield Calcium [Mass/Vol] 8.7 mg/dL Normal 8.5-10.1 [facility] Comment on above: Performed By: #### P RBC #### [facility] [address] [place] [address] Dr. Kayley Hatfield Chloride [Moles/Vol] 101 mmol/L Normal 98-107 [facility] Comment on above: Performed By: #### P RBC #### [facility] [address] [place] [address] Dr. Kayley Hatfield CO2 [Moles/Vol] 33.3 mmol/L Critically high 21.0-32.0 [facility] Comment on above: Performed By: #### P RBC #### [facility] [address] [place] [address] Dr. Kayley Hatfield Creatinine [Mass/Vol] 0.83 mg/dL Normal 0.55-1.02 [facility] Comment on above: Performed By: #### P RBC #### [facility] [address] [place] [address] Dr. Kayley Hatfield EGFR-AF EQUATORIAL GUINEAN >60 Normal >=60 [facility] Comment on above: Performed By: #### P RBC #### [facility] [address] [address] [address] Kayley Hatfield EGFR-NON AF EQUATORIAL GUINEAN >60 Normal >=60 [facility] Comment on above: Performed By: #### P RBC #### [facility] [address] [address] [address] Kayley Hatfield Glucose [Mass/Vol] 94 mg/dL Normal 74-106 [facility] Comment on above: Performed By: #### P RBC #### [facility] [address] [address] [address] Kayley Hatfield Potassium [Moles/Vol] 4.2 mmol/L Normal 3.5-5.1 [facility] Comment on above: Performed By: #### P RBC #### [facility] [address] [address] [address] Kayley Hatfield Sodium [Moles/Vol] 137 mmol/L Normal 136-145 [facility] Comment on above: Performed By: #### P RBC #### [facility] [address] [address] [address] Kayley Hatfield Urea nitrogen [Mass/Vol] 15.0 mg/dL Normal 7.0-18.0 [facility] Comment on above: Performed By: #### P RBC #### [facility] [address] [address] [address] Kayley Hatfield Urea nitrogen/Creatinine [Mass ratio] 18.1 mg/mg Normal [facility] Comment on above: Performed By: #### P RBC #### [facility] [address] [address] [address] Kayley Hatfield PROTEIN ELECTROPHERESISon Albumin [Mass/Vol] 3.4 g/dL Normal 2.9-4.4 [facility] Comment on above: Performed By: #### P RTELEC #### [facility] [address] [address] [address] Kayley Hatfield Albumin/Globulin [Mass ratio] 1.3 {ratio} Normal 0.7-1.7 [facility] Comment on above: Performed By: #### P RTELEC #### [facility] [address] [address] [address] Kayley Hatfield Zwdhx-4-Npakrhab 0.3 g/dL Normal 0.0-0.4 [facility] Comment on above: Performed By: #### P RTELEC #### [facility] [address] [address] [address] Kayley Hatfield Aawrn-1-Xkypodxv 0.8 g/dL Normal 0.4-1.0 [facility] Comment on above: Performed By: #### P RTELEC #### [facility] [address] [place] [address] Dr. Kayley Hatfield Beta Globulin 1.0 g/dL Normal 0.7-1.3 [facility] Comment on above: Performed By: #### P RTELEC #### [facility] [address] [place] [address] Dr. Kayley Hatfield Gamma Globulin 0.5 g/dL Normal 0.4-1.8 [facility] Comment on above: Performed By: #### P RTELEC #### [facility] [address] [place] [address] Dr. Kayley Hatfield Globulin (S) [Mass/Vol] 2.6 g/dL Normal 2.2-3.9 [facility] Comment on above: Performed By: #### P RTELEC #### [facility] [address] [place] [address] Dr. Kayley Hatfield M-Sandip Not Observed Normal Not Observed [facility] Comment on above: Performed By: #### P RTELEC #### [facility] [address] [place] [address] Dr. Kayley Hatfield PDF . Normal [facility] Comment on above: Performed By: #### P RTELEC #### [facility] [address] [place] [address] Dr. Kayley Hatfield Please note: Comment Normal [facility] Comment on above: Result Comment: Prot ein electrophoresis scan will follow via computer, mail, or chute puller delivery. Performed By: #### P RTELEC #### [facility] [address] [address] [address] Kayley Hatfield Protein [Mass/Vol] 6.0 g/dL Normal 6.0-8.5 [facility] Comment on above: Performed By: #### P RTELEC #### [facility] [address] [address] [address] Kayley Hatfield XR CHEST 1 Von [...] Date: 2022-03-30 06:17 Normal [facility] CBC W MANUAL DIFFon 03-29-20 22 ANISOCYTOSIS 2+ Normal [facility] Comment on above: Performed By: #### C VDTBH #### [facility] [address] [address] [address] Kayley Hatfield ATYPICAL LYMPH # Normal [facility] Comment on above: Performed By: #### C VDTBH #### [facility] [address] [address] [address] Kayley Hatfield ATYPICAL LYMPH % Normal [facility] Comment on above: Performed By: #### C VDTBH #### [facility] [address] [address] [address] Kayley Hatfield BAND # 0.0 103/ul Normal 0.0-0.3 [facility] Comment on above: Performed By: #### C VDTBH #### [facility] [address] [address] [address] Kayley Hatfield BAND % 0 % Normal 0-5 [facility] Comment on above: Performed By: #### C VDTBH #### [facility] [address] [address] [address] Kayley Hatfield BASOM # 0.59 103/ul Critically high 0.00-0.10 [facility] Comment on above: Performed By: #### C VDTBH #### [facility] [address] [address] [address] Kayley Hatfield BASOM % 3.0 % Critically high 0.2-2.0 [facility] Comment on above: Performed By: #### C VDTBH #### [facility] [address] [place] [address] Dr. Kayley Hatfield BLAST # Normal [facility] Comment on above: Performed By: #### C VDTBH #### [facility] [address] [place] [address] Dr. Kayley Hatfield BLAST % Normal [facility] Comment on above: Performed By: #### C VDTBH #### [facility] [address] [place] [address] Dr. Kayley Hatfield CORRECTED WBC Normal 4.0-11.0 [facility] Comment on above: Performed By: #### C VDTBH #### [facility] [address] [place] [address] Dr. Kyaley Hatfield EOS # 0.40 103/ul Normal 0.00-0.70 [facility] Comment on above: Performed By: #### C VDTBH #### [facility] [address] [address] [address] Kayley Htafield EOS% 2.0 % Normal 0.9-7.0 [facility] Comment on above: Performed By: #### C VDTBH #### [facility] [address] [place] [address] Dr. Kayley Hatfield HCT 31.1 % Critically low 36.0-48.0 [facility] Comment on above: Performed By: #### C VDTBH #### [facility] [address] [address] [address] Kayley Hatfield HGB 9.7 g/dl Critically low 12.0-16.0 [facility] Comment on above: Performed By: #### C VDTBH #### [facility] [address] [address] [address] Kayley Hatfield HYPOCHROMASIA 1+ Normal [facility] Comment on above: Performed By: #### C VDTBH #### [facility] [address] [address] [address] Kayley Hatfield LYMPHM # 4.75 103/ul Critically high 1.20-3.80 [facility] Comment on above: Performed By: #### C VDTBH #### [facility] [address] [place] [address] Dr. Kayley Hatfield LYMPHM% 24.0 % Normal 20.5-60.0 [facility] Comment on above: Performed By: #### C VDTBH #### [facility] [address] [address] [address] Kayley Hatfield MCH 27.0 pg Normal 26.7-34.0 [facility] Comment on above: Performed By: #### C VDTBH #### [facility] [address] [place] [address] Dr. Kayley Hatfield MCHC 31.2 g/dl Normal 29.9-35.2 [facility] Comment on above: Performed By: #### C VDTBH #### [facility] [address] [address] [address] Kayley Hatfield MCV 86.6 fL Normal 81.0-99.0 The [facility] Comment on above: Performed By: #### C VDTBH #### [facility] [address] [place] [address] Dr. Kayley Hatfield METAMYELOCYTE # Normal [facility] Comment on above: Performed By: #### C VDTBH #### [facility] [address] [place], [place] [id number] Dr. Kayley Hatfield METAMYELOCYTE % Normal [facility] Comment on above: Performed By: #### C VDTBH #### [facility] [address] [place] [address] Dr. Kayley Hatfield MONOM# 0.59 103/ul Normal 0.30-0.80 [facility] Comment on above: Performed By: #### C VDTBH #### [facility] [address] [place] [address] Dr. Kayley Hatfield MONOM% 3.0 % Normal 1.7-12.0 [facility] Comment on above: Performed By: #### C VDTBH #### [facility] [address] [place] [address] Dr. Kayley Hatfield MPV 8.4 fL Critically low 9.5-13.5 [facility] Comment on above: Performed By: #### C VDTBH #### [facility] [address] [place] [address] Dr. Kayley Hatfield MYELOCYTE # Normal [facility] Comment on above: Performed By: #### C VDTBH #### [facility] [address] [place] [address] Dr. Kayley Hatfield MYELOCYTE % Normal [facility] Comment on above: Performed By: #### C VDTBH #### [facility] [address] [place] [address] Dr. Kayley Hatfield NRBC Normal [facility] Comment on above: Performed By: #### C VDTBH #### [facility] [address] [place] [address] Dr. Kayley Hatfield OVALOCYTES SLIGHT Normal [facility] Comment on above: Performed By: #### C VDTBH #### [facility] [address] [place] [address] Dr. Kayley Hatfield PLT 950 103/ul Critically high 150-450 [facility] Comment on above: Performed By: #### C VDTBH #### [facility] [address] [place] [address] Dr. Kayley Hatfield RBC 3.59 106/ul Critically low 4.20-5.40 [facility] Comment on above: Performed By: #### C VDTBH #### [facility] [address] [place] [address] Dr. Kayley Hatfield RDW 26.6 % Critically high 11.0-15.0 [facility] Comment on above: Performed By: #### C VDTBH #### [facility] [address] [place] [address] Dr. Kayley Hatfield SEG # 13.46 103/ul Critically high 1.40-6.50 [facility] [place] Comment on above: Performed By: #### C VDTBH #### [facility] [address] [place] [address] Dr. Kayley Hatfield SEG % 68.0 % Normal 43.0-75.0 [facility] Comment on above: Performed By: #### C VDTBH #### [facility] [address] [place] [address] Dr. Kayley Hatfield WBC 19.8 103/ul Critically high 4.0-11.0 [facility] Comment on above: Performed By: #### C VDTBH #### [facility] [address] [place] [address] Dr. Kayley Hatfield PROF CHEM 8 (BAS METB)on Anion gap [Moles/Vol] 8.6 mmol/L Normal [facility] Comment on above: Performed By: #### L #### [facility] [address] [place] [address] Dr. Kayley Hatfield Calcium [Mass/Vol] 8.9 mg/dL Normal 8.5-10.1 [facility] Comment on above: Performed By: #### L DH #### [facility] [address] [place] [address] Dr. Kayley Hatfield Chloride [Moles/Vol] 102 mmol/L Normal 98-107 [facility] Comment on above: Performed By: #### L DH #### [facility] [address] [place] [address] Dr. Kayley Hatfield CO2 [Moles/Vol] 34.3 mmol/L Critically high 21.0-32.0 [facility] Comment on above: Performed By: #### L DH #### [facility] [address] [place] [address] Dr. Kayley Hatfield Creatinine [Mass/Vol] 0.86 mg/dL Normal 0.55-1.02 [facility] Comment on above: Performed By: #### L DH #### [facility] [address] [address] [address] Kayley Hatfield EGFR-AF EQUATORIAL GUINEAN >60 Normal >=60 [facility] Comment on above: Performed By: #### L DH #### [facility] [address] [place] [address] Dr. Kayley Hatfield EGFR-NON AF EQUATORIAL GUINEAN >60 Normal >=60 [facility] Comment on above: Performed By: #### L DH #### [facility] [address] [place] [address] Dr. Kayley Hatfield Glucose [Mass/Vol] 102 mg/dL Normal 74-106 [facility] Comment on above: Performed By: #### L DH #### [facility] [address] [place] [address] Dr. Kayley Hatfield Potassium [Moles/Vol] 3.9 mmol/L Normal 3.5-5.1 [facility] Comment on above: Performed By: #### L DH #### [facility] [address] [place] [address] Dr. Kayley Hatfield Sodium [Moles/Vol] 141 mmol/L Normal 136-145 [facility] Comment on above: Performed By: #### L DH #### [facility] [address] [place] [address] Dr. Kayley Hatfield Urea nitrogen [Mass/Vol] 20.0 mg/dL Critically high 7.0-18.0 [facility] Comment on above: Performed By: #### L DH #### [facility] [address] [place] [address] Dr. Kayley Hatfield Urea nitrogen/Creatinine [Mass ratio] 23.3 mg/mg Normal [facility] Comment on above: Performed By: #### L #### [facility] [address] [address] [address] Kayley Hatfield XR CHEST 1 Von [...] Date: 2022-03-29 13:26 Normal [facility] XR CHEST 1 V EXAMINATION: XR [...] Date: 2022-03-29 11:37 Normal [facility] XR CHEST 1 V EXAMINATION: XR [...] Date: 2022-03-29 07:32 Normal [facility] XR CHEST 1 V EXAM: XR [...] Date: 2022-03-28 22:40 Normal [facility] CBC W MANUAL DIFFon 03-28-20 22 ANISOCYTOSIS 3+ Normal [facility] Comment on above: Performed By: #### C ALONZO #### [facility] [address] [address] [address] Kayley Hatfield ATYPICAL LYMPH # Normal [facility] Comment on above: Performed By: #### C ALONZO #### [facility] [address] [address] [address] Kayley Hatfield ATYPICAL LYMPH % Normal [facility] Comment on above: Performed By: #### C BCMAN #### [facility] [address] [address] [address] Kayley Hatfield BAND # 0.3 103/ul Normal 0.0-0.3 [facility] Comment on above: Performed By: #### C ALONZO #### [facility] [address] [address] [address] Kayley Hatfield BAND % 2 % Normal 0-5 [facility] Comment on above: Performed By: #### C ALONZO #### [facility] [address] [address] [address] Kayley Hatfield BASOM # 0.00 103/ul Normal 0.00-0.10 [facility] Comment on above: Performed By: #### C BCKATHY #### [facility] [address] [address] [address] Kayley Hatfield BASOM % 0.0 % Critically low 0.2-2.0 [facility] Comment on above: Performed By: #### C BCMAN #### [facility] [address] [address] [address] Kayley Hatfield BLAST # Normal [facility] Comment on above: Performed By: #### C ALONZO #### [facility] [address] [place] [address] Dr. Kayley Hatfield BLAST % Normal [facility] Comment on above: Performed By: #### C ALONZO #### [facility] [address] [place] [address] Dr. Kayley Hatfield CORRECTED WBC Normal 4.0-11.0 [facility] Comment on above: Performed By: #### C ALONZO #### [facility] [address] [place] [address] Dr. Kayley Hatfield EOS # 0.00 103/ul Normal 0.00-0.70 [facility] Comment on above: Performed By: #### C ALONZO #### [facility] [address] [place] [address] Dr. Kayley Hatfield EOS% 0.0 % Critically low 0.9-7.0 [facility] Comment on above: Performed By: #### C BCKATHY #### [facility] [address] [place] [address] Dr. Kayley Hatfield HCT 23.6 % Critically low 36.0-48.0 [facility] Comment on above: Performed By: #### C ALONZO #### [facility] [address] [place] [address] Dr. Kayley Hatfield HGB 6.8 g/dl Critically low 12.0-16.0 [facility] Comment on above: Performed By: #### C ALONZO #### [facility] [address] [address] [address] Kayley Hatfield HYPOCHROMASIA 3+ Normal [facility] Comment on above: Performed By: #### C ALONZO #### [facility] [address] [address] [address] Kayley Hatfield LYMPHM # 1.17 103/ul Critically low 1.20-3.80 [facility] Comment on above: Performed By: #### C ALONZO #### [facility] [address] [place] [address] Dr. Kayley Hatfield LYMPHM% 7.0 % Critically low 20.5-60.0 [facility] Comment on above: Performed By: #### C ALONZO #### [facility] [address] [place] [address] Dr. Kayley Hatfield MCH 24.6 pg Critically low 26.7-34.0 [facility] Comment on above: Performed By: #### Ryley ROSADO #### [facility] [address] [place] [address] Dr. Kayley Hatfield MCHC 28.8 g/dl Critically low 29.9-35.2 [facility] Comment on above: Performed By: #### Ryley ROSADO #### [facility] [address] [place] [address] Dr. Kayley Hatfield MCV 85.5 fL Normal 81.0-99.0 [facility] Comment on above: Performed By: #### Ryley ROSADO #### [facility] [address] [place] [address] Dr. Kayley Hatfield METAMYELOCYTE # Normal [facility] Comment on above: Performed By: #### C ALONZO #### [facility] [address] [place] [address] Dr. Kayley Hatfield METAMYELOCYTE % Normal [facility] Comment on above: Performed By: #### Ryley ROSADO #### [facility] [address] [place] [address] Dr. Kayley Hatfield MONOM# 0.50 103/ul Normal 0.30-0.80 [facility] Comment on above: Performed By: #### C ALONZO #### [facility] [address] [address] [address] Kayley Hatfield MONOM% 3.0 % Normal 1.7-12.0 [facility] Comment on above: Performed By: #### C ALONZO #### [facility] [address] [address] [address] Kayley Hatfield MPV 8.6 fL Critically low 9.5-13.5 [facility] Comment on above: Performed By: #### C ALONZO #### [facility] [address] [address] [address] Kayley Hatfield MYELOCYTE # Normal [facility] Comment on above: Performed By: #### C ALONZO #### [facility] [address] [address] [address] Kayley Hatfield MYELOCYTE % Normal [facility] Comment on above: Performed By: #### C ALONZO #### [facility] [address] [address] [address] Kayley Hatfield NRBC Normal [facility] Comment on above: Performed By: #### C ALONZO #### [facility] [address] [address] [address] Kayley Hatfield OVALOCYTES SLIGHT Normal [facility] Comment on above: Performed By: #### C ALONZO #### [facility] [address] [address] [address] Kayley Hatfield PLT 1384 103/ul Critically high 150-450 [facility] Comment on above: Performed By: #### C ALONZO #### [facility] [address] [address] [address] Kayley Hatfield RBC 2.76 106/ul Critically low 4.20-5.40 [facility] Comment on above: Performed By: #### C ALONZO #### [facility] [address] [address] [address] Kayley Hatfield RDW 0.0 % Critically low 11.0-15.0 [facility] Comment on above: Performed By: #### C ALONZO #### [facility] [address] [place], [place] [address] Dr. Kayley Hatfield SEG # 14.70 103/ul Critically high 1.40-6.50 [facility] Comment on above: Performed By: #### C BCMAN #### [facility] [address] [place], [place] [address] Dr. Kayley Hatfield SEG % 88.0 % Critically high 43.0-75.0 [facility] Comment on above: Performed By: #### C ABBYKATHY #### [facility] [address] [id number] [address] Kayley Hatfield WBC 16.7 103/ul Critically high 4.0-11.0 [facility] Comment on above: Performed By: #### C ABBYKATHY #### [facility] [address] [address] [address] Kayley Hatfield CRPon 03-28-2022 CRP [Mass/Vol] mg/L Normal <=1.0 [facility] Comment on above: Performed By: #### H GBHCT #### [facility] [address] [address] [address] Kayley Hatfield [facility] SARS-CoV-2 (COVID-19) RNA ELBA+probe Ql (Unsp spec) Not detected Normal NOT DETECTED [facility] Comment on above: Result Comment: When [...] for this test is supported by the [place] of Health and Human Service's declaration that [...] By: #### P RBC #### [facility] [address] [place] [address] Dr. Kayley DOBSON URINE PROFILEon 2 Bilirubin Ql (U) Negative Normal NEGATIVE [facility] Comment on above: Performed By: #### P RBC #### [facility] [address] [place] [address] Dr. Kayley Hatfield Clarity (U) CLEAR Normal CLEAR [facility] Comment on above: Performed By: #### P RBC #### [facility] [address] [place] [address] Dr. Kayley Hatfield Color (U) LT. YELLOW Normal YELLOW [facility] Comment on above: Performed By: #### P RBC #### [facility] [address] [place] [address] Dr. Kayley [place] A micrscopic examination will be performed if indicated. Normal [facility] Comment on above: Performed By: #### P RBC #### [facility] [address] [place] [address] Dr. Kayley Hatfield Glucose Ql (U) Negative Normal NEGATIVE [facility] Comment on above: Performed By: #### P RBC #### [facility] [address] [place] [address] Dr. Kayley Hatfield Hemoglobin Ql (U) Negative Normal NEGATIVE [facility] Comment on above: Performed By: #### P RBC #### [facility] [address] [place] [address] Dr. Kayley Hatfield Ketones Ql (U) Negative Normal NEGATIVE [facility] Comment on above: Performed By: #### P RBC #### [facility] [address] [place] [address] Dr. Kayley Hatfield LEUKOCYTES Negative Normal NEGATIVE [facility] Comment on above: Performed By: #### P RBC #### [facility] [address] [place] [address] Dr. Kayley Hatfield Nitrite Ql (U) Negative Normal NEGATIVE [facility] Comment on above: Performed By: #### P RBC #### [facility] [address] [place] [address] Dr. Kayley Hatfield pH (U) 6.0 [pH] Normal 5-9 [facility] Comment on above: Performed By: #### P RBC #### [facility] [address] [address] [address] Kayley Hatfield SPEC GRAVITY <=1.005 Abnormal 1.005-<=1.025 [facility] Comment on above: Performed By: #### P RBC #### [facility] [address] [place] [address] Dr. Kayley Hatfield UA PROTEIN Negative Normal NEGATIVE/ TRACE [facility] Comment on above: Performed By: #### P RBC #### [facility] [address] [place] [address] Dr. Kayley Hatfield UR MICRO IND NOT INDICATED Normal [facility] Comment on above: Performed By: #### P RBC #### [facility] [address] [place] [address] Dr. Kayley Hatfield Urobilinogen Qn (U) 0.2 {Lu'U}/dL Normal 0.2 - 1. 0 [facility] Comment on above: Performed By: #### P RBC #### [facility] [address] [place] [address] Dr. Kayley Hatfield FERRITINon 03-28-2022 Ferritin [Mass/Vol] 61.0 ng/mL Normal 8.0-252.0 [facility] Comment on above: Performed By: #### P RBC #### [facility] [address] [place] [address] Dr. Kayley Hatfield GLYCOHEMOGLOBIN A1Con 2021 ADA RECOMMENDATION SEE BELOW Normal [facility] Comment on above: Result Comment: ADA RECOMMENDED LIMIT 4.0 - 6.0 ADA THERAPEUTIC TARGET < 7.0 ACTION SUGGESTED > 7.0 Performed By: #### P RBC #### [facility] [address] [place] [address] Dr. Kayley Hatfield Glucose [Mass/Vol] 114 mg/dL Normal [facility] Comment on above: Performed By: #### P RBC #### [facility] [address] [place] [address] Dr. Kayley Hatfield HbA1c (Bld) [Mass fraction] 5.6 % Normal 4.5-6.2 [facility] Comment on above: Performed By: #### P RBC #### [facility] [address] [place] [address] Dr. Kayley Hatfield IRONon 03-28-2022 Iron [Mass/Vol] 37.0 ug/dL Critically low 50.0-170.0 [facility] Comment on above: Performed By: #### P RBC #### [facility] [address] [place] [address] Dr. Kayley Hatfield LDHon 03-28-2022 LDH 174 U/L Normal 81-234 [facility] Comment on above: Performed By: #### L DH #### [facility] [address] [place] [address] Dr. Kayley Hatfield LIPID PROFILEon 03-28-2022 CHOL-HDL RATIO NORM SEE BELOW Normal [facility] Comment on above: Result Comment: 3.3 - 4.4 LOW RISK 4.4 - 7.1 AVERAGE RISK 7.1 - 11.0 MODERATE RISK >11.0 HIGH RISK Performed By: #### P RBC #### [facility] [address] [place] [address] Dr. Kayley aHtfield Cholesterol [Mass/Vol] 193 mg/dL Normal <=200 [facility] Comment on above: Performed By: #### P RBC #### [facility] [address] [place] [address] Dr. Kayley Hatfield Cholesterol in HDL [Mass/Vol] 95 mg/dL Critically high 40-60 [facility] Comment on above: Performed By: #### P RBC #### [facility] [address] [place] [address] Dr. Kayley Hatfield Cholesterol in LDL [Mass/Vol] 74.8 mg/dL Normal [facility] Comment on above: Performed By: #### P RBC #### [facility] [address] [place] [address] Dr. Kayley Hatfield Cholesterol.total/Cho lesterol in HDL [Mass ratio] 2.0 {ratio} Normal [facility] Comment on above: Performed By: #### P RBC #### [facility] [address] [address] [address] Kayley Hatfield HDL NORMAL > or = 60 mg/dl - LO W CARDIOVASCULAR RISK <40 mg/dl - HIGH CARDIOVASCULAR RISK Normal [facility] Comment on above: Performed By: #### P RBC #### [facility] [address] [address] [address] Kayley Hatfield LDL CALC NORMAL SEE BELOW Normal [facility] Comment on above: Result Comment: <100 mg/dl OPTIMAL 100 - 129 mg/dl NEAR OR ABOVE OPTIMAL 130 - 159 mg/dl BORDERLINE HIGH 160 - 189 mg/dl HIGH >190 mg/dl VERY HIGH Performed By: #### P RBC #### [facility] [address] [address] [address] Kayley Hatfield Triglyceride [Mass/Vol] 116 mg/dL Normal <=150 [facility] Comment on above: Performed By: #### P RBC #### [facility] [address] [address] [address] Kayley Hatfield VLDL CALC 23.2 mg/dL Normal [facility] Comment on above: Performed By: #### P RBC #### [facility] [address] [address] [address] Kayley Hatfield LIVER PROFILEon 03-28-2022 Albumin [Mass/Vol] 3.2 g/dL Critically low 3.4-5.0 Th [facility] Comment on above: Performed By: #### P RBC #### [facility] [address] [address] [address] Kayley Hatfield Albumin/Globulin [Mass ratio] 1.0 {ratio} Normal [facility] Comment on above: Performed By: #### P RBC #### [facility] [address] [address] [address] Kayley Hatfield ALP [Catalytic activity/Vol] 56 U/L Normal 46-116 [facility] Comment on above: Performed By: #### P RBC #### [facility] [address] [address] [address] Kayley Hatfield ALT [Catalytic activity/Vol] 32 U/L Normal 14-59 [facility] Comment on above: Performed By: #### P RBC #### [facility] [address] [place] [address] Dr. Kayley Hatfield AST [Catalytic activity/Vol] 18 U/L Normal 15-37 [facility] Comment on above: Performed By: #### P RBC #### [facility] [address] [place] [address] Dr. Kayley Hatfield BILI, CONJUGATED 0.1 mg/dL Normal 0.0-0.2 [facility] Comment on above: Performed By: #### P RBC #### [facility] [address] [place] [address] Dr. Kayley Hatfield Bilirubin [Mass/Vol] 0.2 mg/dL Normal 0.2-1.0 [facility] [facility] Comment on above: Performed By: #### P RBC #### [facility] [address] [place] [address] Dr. Kayley Hatfield Globulin (S) [Mass/Vol] 3.1 g/dL Normal [facility] Comment on above: Performed By: #### P RBC #### [facility] [address] [place] [address] Dr. Kayley Hatfield Protein [Mass/Vol] 6.3 g/dL Critically low 6.4-8.2 Th [facility] Comment on above: Performed By: #### P RBC #### [facility] [address] [place] [address] Dr. Kayley Hatfield MAGNESIUMon 03-28-2022 Magnesium [Mass/Vol] 1.8 mg/dL Normal 1.8-2.4 [facility] Comment on above: Performed By: #### H GBHCT #### [facility] [address] [place] [address] Dr. Kayley Hatfield PHOSPHORUSon 03-28-2022 Phosphate [Mass/Vol] 4.4 mg/dL Normal 2.6-4.7 [facility] Comment on above: Performed By: #### O BSCRN #### [facility] [address] [address] [address] Kayley Hatfield PROF CHEM 8 (BAS METB)on Anion gap [Moles/Vol] 10.1 mmol/L Normal Th [facility] Comment on above: Performed By: #### P RBC #### [facility] [address] [address] [address] Kayley Hatfield Calcium [Mass/Vol] 9.1 mg/dL Normal 8.5-10.1 [facility] Comment on above: Performed By: #### P RBC #### [facility] [address] [address] [address] Kayley Hatfield Chloride [Moles/Vol] 101 mmol/L Normal 98-107 [facility] Comment on above: Performed By: #### P RBC #### [facility] [address] [place] [address] Dr. Kayley Hatfield CO2 [Moles/Vol] 32.6 mmol/L Critically high 21.0-32.0 [facility] Comment on above: Performed By: #### P RBC #### [facility] [address] [place] [address] Dr. Kayley Hatfield Creatinine [Mass/Vol] 0.90 mg/dL Normal 0.55-1.02 [facility] Comment on above: Performed By: #### P RBC #### [facility] [address] [place] [address] Dr. Kayley Hatfield EGFR-AF EQUATORIAL GUINEAN >60 Normal >=60 [facility] Comment on above: Performed By: #### P RBC #### [facility] [address] [address] [address] Kayley Hatfield EGFR-NON AF EQUATORIAL GUINEAN >60 Normal >=60 [facility] Comment on above: Performed By: #### P RBC #### [facility] [address] [place] [address] Dr. Kayley Hatfield Glucose [Mass/Vol] 161 mg/dL Critically high 74-106 [facility] Comment on above: Performed By: #### P RBC #### [facility] [address] [address] [address] Kayley Hatfield Potassium [Moles/Vol] 4.7 mmol/L Normal 3.5-5.1 [facility] Comment on above: Performed By: #### P RBC #### [facility] [address] [address] [address] Kayley Hatfield Sodium [Moles/Vol] 139 mmol/L Normal 136-145 [facility] Comment on above: Performed By: #### P RBC #### [facility] [address] [address] [address] Kayley Hatfield Urea nitrogen [Mass/Vol] 15.0 mg/dL Normal 7.0-18.0 [facility] Comment on above: Performed By: #### P RBC #### [facility] [address] [address] [address] Kayley Hatfield Urea nitrogen/Creatinine [Mass ratio] 16.7 mg/mg Normal [facility] Comment on above: Performed By: #### P RBC #### [facility] [address] [address] [address] Kayley Hatfield RETICULOCYTEon 03-28-2022 RETIC 4.65 % Critically high 0.60-3.10 [facility] Comment on above: Performed By: #### L DH #### [facility] [address] [address] [address] Kayley Hatfield SED RATE WESTERGRENon 2021 SED RATE 12 mm/hr Normal <=30 [facility] Comment on above: Performed By: #### P RTELEC #### [facility] [address] [address] [address] Kayley Hatfield TSHon 03-28-2022 TSH 0.922 uIU/mL Normal 0.358-3.740 [facility] Comment on above: Performed By: #### P RBC #### [facility] [address] [address] [address] Kayley Hatfield TYPE AND SCREENon 03-28-2022 TYPE AND SCREEN Negative Normal [facility] Comment on above: Performed By: #### C VDTBH #### [facility] [address] [place] [address] Dr. Kayley Hatfield VIT B12 AND FOLATEon 022 Cobalamin (Vitamin B12) [Mass/Vol] 490.0 pg/mL Normal 193.0-986.0 [facility] Comment on above: Performed By: #### L DH #### [facility] [address] [place] [address] Dr. Kayley Hatfield FOLATE 14.00 ng/mL Normal 8.60-58.90 [facility] Comment on above: Performed By: #### L DH #### [facility] [address] [place] [address] Dr. Kayley Hatfield VITAMIN D 25 OHon 03-28-2022 VIT D 25-OH 41.5 ng/mL Normal [facility] Comment on above: Performed By: #### O BSCRN #### [facility] [address] [place] [address] Dr. Kayley Hatfield VIT D RANGES SEE BELOW Normal [facility] Comment on above: Result Comment: <20 ng/mL Vit D deficient 20 - <30 ng/mL Vit D insufficient 30 - 100 ng/mL Vit D sufficient >100 ng/mL Potential Toxicity Performed By: #### O BSCRN #### [facility] [address] [place] [address] Dr. Kayley Hatfield XR CHEST 1 Von [...] Date: 2022-03-28 21:37 Normal [facility] BASIC METABOLIC PANELon 09-0 Calcium [Mass/Vol] 8.9 mg/dL Normal 8.6-10.3 [facility] Comment on above: Order Comment: No: D o not add to previous draw Performed By: #### 3 5200, 64273, 72586, 77166 #### [facility] [address] [place] [address], [facility] Chloride [Moles/Vol] 97 mmol/L Low 98-107 [facility] Comment on above: Order Comment: No: D o not add to previous draw Performed By: #### 3 5200, 79941, 49133, 91314 #### [facility] [address] [place] [address], [place] CO2 [Moles/Vol] 35 mmol/L High 21-31 [facility] Comment on above: Order Comment: No: D o not add to previous draw Performed By: #### 3 5200, 83141, 62808, 30856 #### [facility] [address] [place] [address], [place] Creatinine [Mass/Vol] 0.65 mg/dL Normal 0.60-1.20 [facility] Comment on above: Order Comment: No: D o not add to previous draw Performed By: #### 3 5200, 80366, 38404, 58414 #### [facility] [address] [place] [address], [place] GFR/1.73 sq M.predicted among non-blacks MDRD (S/P/Bld) [Vol rate/Area] mL/min/{1.73_m2} Normal >60 [facility] Comment on above: Order Comment: No: D o not add to previous draw Result Comment: [facility]'s estimated glomerular filtration rate (eGFR) will [...] of individuals. Performed By: #### 3 5200, 20595, 03581, 53453 #### [facility] [address] [place] [address], [place] Glucose [Mass/Vol] 161 mg/dL High 70-100 [facility] Comment on above: Order Comment: No: D o not add to previous draw Performed By: #### 3 5200, 36289, 99775, 59906 #### [facility] [address] [place] [address], [place] Potassium [Moles/Vol] 3.9 mmol/L Normal 3.5-5.1 [facility] Comment on above: Order Comment: No: D o not add to previous draw Performed By: #### 3 5200, 13131, 27674, 97717 #### [facility] [address] [place] [address], [place] Sodium [Moles/Vol] 136 mmol/L Normal 136-145 [facility] Comment on above: Order Comment: No: D o not add to previous draw Performed By: #### 3 5200, 58939, 42961, 30353 #### [facility] [address] [place] [address], [place] Urea nitrogen [Mass/Vol] 16 mg/dL Normal 7-25 [facility] Comment on above: Order Comment: No: D o not add to previous draw Performed By: #### 3 5200, 10331, 54868, 82157 #### [facility] [address] [place] [address], [facility] CBC COMPLETE BLOOD COUNTon 0 03-15-2022 Hematocrit (Bld) [Volume fraction] 28.2 % Low 36.0-45.0 [facility] Comment on above: Order Comment: No: D o not add to previous draw Performed By: #### 3 5200 #### [facility] [address] [place] [address], [facility] Hemoglobin (Bld) [Mass/Vol] 8.3 g/dL Low 12.0-15.0 [facility] Comment on above: Order Comment: No: D o not add to previous draw Performed By: #### 3 5200 #### [facility] [address] [place] [address], [facility] MCH (RBC) [Entitic mass] 22.9 pg Low 27.0-33.0 [facility] Comment on above: Order Comment: No: D o not add to previous draw Performed By: #### 3 5200 #### [facility] [address] [place] [address], [facility] MCHC (RBC) [Mass/Vol] 29.4 g/dL Low 32.0-35.0 [facility] Comment on above: Order Comment: No: D o not add to previous draw Performed By: #### 3 5200 #### [facility] [address] [place] [address], [facility] MCV (RBC) [Entitic vol] 77.9 fL Low 82.0-98.0 [facility] Comment on above: Order Comment: No: D o not add to previous draw Performed By: #### 3 5200 #### [facility] [address] [place] [address], [facility] Nucleated RBC/100 WBC (Bld) [Ratio] 0 % Normal 0-0 [facility] Comment on above: Order Comment: No: D o not add to previous draw Performed By: #### 3 5200 #### [facility] [address] [place] [address], [facility] PLAT CNT 221 10*3/uL Normal 150-400 [facility] Comment on above: Order Comment: No: D o not add to previous draw Performed By: #### 3 5200 #### [facility] [address] [place] [address], [facility] RBC (Bld) [#/Vol] 3.62 10*6/uL Low 3.80-5.00 [facility] Comment on above: Order Comment: No: D o not add to previous draw Performed By: #### 3 5200 #### [facility] [address] [place] [address], [facility] RDW ---- Normal 11.5-15.0 [facility] Comment on above: Order Comment: No: D o not add to previous draw Result Comment: Prev ious RDW was unable to be calculated Performed By: #### 3 5200 #### [facility] [address] [place] [address], [facility] WBC (Bld) [#/Vol] 11.88 10*3/uL High 4.00-10.60 [facility] Comment on above: Order Comment: No: D o not add to previous draw Performed By: #### 3 5200 #### [facility] [address] [place] [address], [facility] POC GLUCOSE LABon 03-15-2022 Glucose [Mass/Vol] 109 mg/dL High 70-100 [facility] Comment on above: Performed By: #### 8 5499 ####[facility] [facility] [place] [address], [facility] POC GLUCOSE LABon 03-14-2022 Glucose [Mass/Vol] 278 mg/dL High 70-100 [facility] Comment on above: Performed By: #### 8 5499 ####[facility] [place] [address], [facility] Glucose [Mass/Vol] 195 mg/dL High 70-100 [facility] Comment on above: Performed By: #### 8 5499 ####[facility] [place] [address], [facility] Glucose [Mass/Vol] 114 mg/dL High 70-100 [facility] Comment on above: Performed By: #### 8 5499 ####[facility] [facility] [place] [address], [place] Glucose [Mass/Vol] 113 mg/dL High 70-100 [facility] Comment on above: Performed By: #### 3 5200 #### [facility] [address] [place] [address], [facility] PORTABLE CHEST 1 VIEWon PORTABLE CHEST [address] [facility] Department of Radiology [address] [place] [id number] Patient Name: LISE CANALES : 1955 Sex: F Age: Race: White Pt. Location: [id number] Patient Status: I Ordered Date: 03/14/2022 2:35:00 [...] chest. Electronically signed: Tyshawn Tapia. Transcribed by: [email or web address], User Resident: Electronically Signed by: TYSHAWN TAPIA @ 03/14/2022 03:31 PM Normal [facility] Comment on above: Order Comment: Check Chest Tube Position, S/P Chest tube DC'd PORTABLE CHEST [address] [facility] Department of Radiology [address] [place] [id number] Patient Name: LISE CANALES : 1955 Sex: F Age: Race: White Pt. Location: [id number] Patient Status: I Ordered Date: 03/14/2022 6:50:00 [...] pneumothorax. Electronically signed: Tyshawn Tapia. Transcribed by: [email or web address], User Resident: Electronically Signed by: TYSHAWN TAPIA @ 03/14/2022 02:56 PM Normal [facility] Comment on above: Order Comment: Check Chest Tube Position, S/P Chest tube DC'd POC GLUCOSE LABon 03-13-2022 Glucose [Mass/Vol] 282 mg/dL High 70-100 [facility] Comment on above: Performed By: #### 8 5499 ####[facility] [facility] [place] [address], [place] Glucose [Mass/Vol] 163 mg/dL High 70-100 [facility] Comment on above: Performed By: #### 8 5499 ####[facility] [place] [address], [place] Glucose [Mass/Vol] 149 mg/dL High 70-100 [facility] Comment on above: Performed By: #### 3 5200 #### [facility] [address] [place] [address], [place] Glucose [Mass/Vol] 149 mg/dL High 70-100 [facility] Comment on above: Performed By: #### 8 5499 ####[facility] [place] [address], [place] PORTABLE CHEST 1 VIEWon PORTABLE CHEST [address] [facility] Department of Radiology [address] [place] [phone] Patient Name: LISE CANALES : 1955 Sex: F Age: Race: White Pt. Location: [id number] Patient Status: I Ordered Date: 03/13/2022 4:15:00 [...] morning Electronically signed: Avinash Mckay. Transcribed by: [email or web address], User Resident: Electronically Signed by: AVINASH MCKAY @ 03/13/2022 06:20 PM Normal [facility] Comment on above: Order Comment: Check Chest Tube Position, S/P Chest tube DC'd PORTABLE CHEST [address] [facility] Department of Radiology [address] [place] [phone] Patient Name: LISE CANALES : 1955 Sex: F Age: Race: White Pt. Location: [id number] Patient Status: I Ordered Date: 03/13/2022 6:50:00 [...] congestion. Electronically signed: Tyshawn Tapia. Transcribed by: [email or web address], User Resident: Electronically Signed by: TYSHAWN TAPIA @ 03/13/2022 08:34 AM Normal [facility] Comment on above: Order Comment: Evalu ate for Aspiration POTASSIUM BLOODon 03-13-2022 Potassium [Moles/Vol] 4.5 mmol/L Normal 3.5-5.1 [facility] Comment on above: Order Comment: No: D o not add to previous draw Performed By: #### 3 5200 #### [facility] [address] [place] [address], [facility] BASIC METABOLIC PANELon Calcium [Mass/Vol] 9.4 mg/dL Normal 8.6-10.3 [facility] Comment on above: Order Comment: Check Chest Tube Position, S/P Chest tube DC'd Performed By: #### 0 0071 ####[facility] [facility] [place] [place] [address], [facility] Chloride [Moles/Vol] 98 mmol/L Normal 98-107 [facility] Comment on above: Order Comment: Check Chest Tube Position, S/P Chest tube DC'd Performed By: #### 0 0071 ####[facility] [facility] [place] [address], [facility] CO2 [Moles/Vol] 34 mmol/L High 21-31 [facility] Comment on above: Order Comment: Check Chest Tube Position, S/P Chest tube DC'd Performed By: #### 0 0071 ####[facility] [place] [address], [facility] Creatinine [Mass/Vol] 0.56 mg/dL Low 0.60-1.20 [facility] Comment on above: Order Comment: Check Chest Tube Position, S/P Chest tube DC'd Performed By: #### 0 0071 ####[facility] [place] [address], [facility] GFR/1.73 sq M.predicted among non-blacks MDRD (S/P/Bld) [Vol rate/Area] mL/min/{1.73_m2} Normal >60 [facility] Comment on above: Order Comment: Check Chest Tube Position, S/P Chest tube DC'd Result Comment: [facility]'s estimated glomerular filtration rate (eGFR) will [...] of individuals. Performed By: #### 0 0071 ####[facility] [place] [address], [facility] Glucose [Mass/Vol] 114 mg/dL High 70-100 [facility] Comment on above: Order Comment: Check Chest Tube Position, S/P Chest tube DC'd Performed By: #### 0 0071 ####[facility] [place] [address], [facility] Potassium [Moles/Vol] 3.3 mmol/L Low 3.5-5.1 [facility] Comment on above: Order Comment: Check Chest Tube Position, S/P Chest tube DC'd Performed By: #### 0 0071 ####[facility] [place] [address], [facility] Sodium [Moles/Vol] 140 mmol/L Normal 136-145 [facility] Comment on above: Order Comment: Check Chest Tube Position, S/P Chest tube DC'd Performed By: #### 0 0071 ####[facility] [place] [address], [facility] Urea nitrogen [Mass/Vol] 9 mg/dL Normal 7-25 [facility] Comment on above: Order Comment: Check Chest Tube Position, S/P Chest tube DC'd Performed By: #### 0 0071 ####[facility] CBC COMPLETE BLOOD COUNTon 0 03-12-2022 Hematocrit (Bld) [Volume fraction] 35.2 % Low 36.0-45.0 [facility] Comment on above: Order Comment: No: D o not add to previous draw Performed By: #### 3 5200 #### [facility] [address] [place] [address], [facility] Hemoglobin (Bld) [Mass/Vol] 10.1 g/dL Low 12.0-15.0 [facility] Comment on above: Order Comment: No: D o not add to previous draw Performed By: #### 3 5200 #### [facility] [address] [place] [address], [facility] IMM PLATELET FRAC 3.6 % Normal 0.8-6.3 [facility] Comment on above: Order Comment: No: D o not add to previous draw Performed By: #### 3 5200 #### [facility] [address] [facility] [place] [place] [address], [facility] MCH (RBC) [Entitic mass] 21.9 pg Low 27.0-33.0 [facility] Comment on above: Order Comment: No: D o not add to previous draw Performed By: #### 3 5200 #### [facility] [address] [place] [address], [facility] MCHC (RBC) [Mass/Vol] 28.7 g/dL Low 32.0-35.0 [facility] Comment on above: Order Comment: No: D o not add to previous draw Performed By: #### 3 5200 #### [facility] [address] [facility]. [place] [id number], [facility] MCV (RBC) [Entitic vol] 76.2 fL Low 82.0-98.0 [facility] Comment on above: Order Comment: No: D o not add to previous draw Performed By: #### 3 5200 #### [facility] [address] [facility] [address], [facility] Nucleated RBC/100 WBC (Bld) [Ratio] 0 % Normal 0-0 [facility] Comment on above: Order Comment: No: D o not add to previous draw Performed By: #### 3 5200 #### [facility] [address] [place] [address], [facility] PLAT CNT 129 10*3/uL Low 150-400 [facility] Comment on above: Order Comment: No: D o not add to previous draw Performed By: #### 3 5200 #### [facility] [address] [place] [address], [facility] RBC (Bld) [#/Vol] 4.62 10*6/uL Normal 3.80-5.00 [facility] Comment on above: Order Comment: No: D o not add to previous draw Performed By: #### 3 5200 #### [facility] [address] [place] [address], [facility] RDW Unable to Calculate Normal 11.5-15.0 [facility] Comment on above: Order Comment: No: D o not add to previous draw Performed By: #### 3 5200 #### [facility] [address] [place] [id number], [facility] WBC (Bld) [#/Vol] 11.72 10*3/uL High 4.00-10.60 [facility] Comment on above: Order Comment: No: D o not add to previous draw Performed By: #### 3 5200 #### [facility] [address] [place] [address], [facility] POC GLUCOSE LABon 03-12-2022 Glucose [Mass/Vol] 252 mg/dL High 70-100 [facility] Comment on above: Performed By: #### 3 5200 #### [facility] [address] [place] [address], [facility] POC GLUCOSE LABon 03-11-2022 Glucose [Mass/Vol] 121 mg/dL High 70-100 [facility] Comment on above: Performed By: #### 8 5499 ####[facility] [place] [address], [facility] Glucose [Mass/Vol] 122 mg/dL High 70-100 [facility] Comment on above: Performed By: #### 3 5200 #### [facility] [address] [place] [address], [facility] Glucose [Mass/Vol] 86 mg/dL Normal 70-100 [facility] Comment on above: Performed By: #### 3 5200 #### [facility] [address] [place] [address], [facility] PORTABLE CHEST 1 VIEWon PORTABLE CHEST [address] [facility] Department of Radiology [address] [place] [address] Patient Name: LISE CANALES : 1955 Sex: F Age: Race: White Pt. Location: [address] [place] [address] Patient Status: I Ordered Date: 03/11/2022 3:25:00 [...] abnormalities Electronically signed: Avinash Mckay. Transcribed by: [email or web address], User Resident: Electronically Signed by: AVINASH MCKAY @ 03/11/2022 06:30 PM Normal [facility] Comment on above: Order Comment: Evalu ate for Atelectasis CBC COMPLETE BLOOD COUNTon 0 03-10-2022 Erythrocyte distribution width (RBC) [Ratio] 29.9 % High 11.5-15.0 [facility] Comment on above: Order Comment: No: D o not add to previous draw Performed By: #### 3 5200 #### [facility] [address] [facility] [address], [facility] Hematocrit (Bld) [Volume fraction] 32.2 % Low 36.0-45.0 [facility] Comment on above: Order Comment: No: D o not add to previous draw Performed By: #### 3 5200 #### [facility] [address] [facility] [place] [address], [facility] Hemoglobin (Bld) [Mass/Vol] 9.2 g/dL Low 12.0-15.0 [facility] Comment on above: Order Comment: No: D o not add to previous draw Performed By: #### 3 5200 #### [facility] [address] [place] [address], [facility] IMM PLATELET FRAC 3.4 % Normal 0.8-6.3 [facility] Comment on above: Order Comment: No: D o not add to previous draw Performed By: #### 3 5200 #### [facility] [address] [place] [address], [facility] MCH (RBC) [Entitic mass] 21.9 pg Low 27.0-33.0 [facility] Comment on above: Order Comment: No: D o not add to previous draw Performed By: #### 3 5200 #### [facility] [address] [place] [id number], [facility] MCHC (RBC) [Mass/Vol] 28.6 g/dL Low 32.0-35.0 [facility] Comment on above: Order Comment: No: D o not add to previous draw Performed By: #### 3 5200 #### [facility] [address] [place] [address], [facility] MCV (RBC) [Entitic vol] 76.7 fL Low 82.0-98.0 [facility] Comment on above: Order Comment: No: D o not add to previous draw Performed By: #### 3 5200 #### [facility] [address] [place] [address], [facility] Nucleated RBC/100 WBC (Bld) [Ratio] 0 % Normal 0-0 [facility] Comment on above: Order Comment: No: D o not add to previous draw Performed By: #### 3 5200 #### [facility] [address] [place] [address], [facility] PLAT CNT 124 10*3/uL Low 150-400 [facility] Comment on above: Order Comment: No: D o not add to previous draw Performed By: #### 3 5200 #### [facility] [address] [place] [address], [facility] RBC (Bld) [#/Vol] 4.20 10*6/uL Normal 3.80-5.00 [facility] Comment on above: Order Comment: No: D o not add to previous draw Performed By: #### 3 5200 #### [facility] [address] [place] [address], [facility] WBC (Bld) [#/Vol] 12.68 10*3/uL High 4.00-10.60 [facility] Comment on above: Order Comment: No: D o not add to previous draw Performed By: #### 3 5200 #### [facility] [address] [place] [address], [facility] HEMOGLOBIN A1Con 03-10-2022 Glucose [Moles/Vol] 143 mmol/L Normal [facility] Comment on above: Order Comment: No: D o not add to previous draw Result Comment: Resu lt changed by BSHORT on 03/10/2022 13:15. The previous value was 140. Performed By: #### 3 1791 #### [facility] [address] [facility] [place] [address], [facility] HbA1c (Bld) [Mass fraction] 6.6 % High 4.0-6.0 [facility] Comment on above: Order Comment: No: D o not add to previous draw Result Comment: Resu lt changed by BSHORT on 03/10/2022 13:15. The previous value was 6.5. Performed By: #### 3 1791 #### [facility] [address] [facility] [place] [address], [facility] POC GLUCOSE LABon 03-10-2022 Glucose [Mass/Vol] 107 mg/dL High 70-100 [facility] Comment on above: Performed By: #### 3 5200 #### [facility] [address] [facility] [place] [address], [place] Glucose [Mass/Vol] 100 mg/dL Normal 70-100 [facility] Comment on above: Performed By: #### 8 5499 ####[facility] [facility] [address], [place] Glucose [Mass/Vol] 147 mg/dL High 70-100 [facility] Comment on above: Performed By: #### 8 5499 ####[facility] [place] [address] Glucose [Mass/Vol] 65 mg/dL Low 70-100 [facility] Comment on above: Performed By: #### 8 5499 ####[facility] [place] [address] PORTABLE CHEST 1 VIEWon PORTABLE CHEST [address] [facility] Department of Radiology [address] [place] [address] Patient Name: LISE CANALES : 1955 Sex: F Age: Race: White Pt. Location: [id number] Patient Status: I Ordered Date: 03/10/2022 7:40:00 [...] recommended. Electronically signed: Derek Ingram. Transcribed by: [email or web address], User Resident: Electronically Signed by: DEREK INGRAM @ 03/10/2022 12:10 PM Normal [facility] Comment on above: Order Comment: No: D o not add to previous draw *URINE CULTUREon 03-09-2022 *URINE CULTURE Clinical Report: (D) Specimen/Source: URINE/CLEAN VOID URINE Collected: 03/09/2022 01:58 Status: Final Last Updated: 03/10/2022 08:51 ISO (Final) 50,000 - 100,000 Cfu/mL Mixed Lexi: Multiple Organisms present suggest contamination. Suggest Repeat Specimen Normal [facility] Comment on above: Performed By: #### 3 0339 ####[facility] CBC W/DIFFon 03-09-2022 ABS IMM GRANS 0.1 10*3/uL Normal 0.0-0.2 [facility] Comment on above: Order Comment: Check Chest Tube Position, S/P Chest tube DC'd Performed By: #### 5 0103 ####[facility] ABS NEUTROPHILS 13.3 10*3/uL High 1.6-7.6 [facility] Comment on above: Order Comment: Check Chest Tube Position, S/P Chest tube DC'd Performed By: #### 5 0103 ####[facility] ANISO Moderate Normal [facility] Comment on above: Order Comment: Check Chest Tube Position, S/P Chest tube DC'd Performed By: #### 5 0103 ####[facility] Basophils (Bld) [#/Vol] 0.0 10*3/uL Normal 0.0-0.2 [facility] Comment on above: Order Comment: Check Chest Tube Position, S/P Chest tube DC'd Performed By: #### 5 0103 ####[facility] Basophils/100 WBC (Bld) 0.3 % Normal 0.0-1.0 [facility] Comment on above: Order Comment: Check Chest Tube Position, S/P Chest tube DC'd Performed By: #### 5 0103 ####[facility] Eosinophils (Bld) [#/Vol] 0.1 10*3/uL Normal 0.0-0.5 [facility] Comment on above: Order Comment: Check Chest Tube Position, S/P Chest tube DC'd Performed By: #### 5 0103 ####[facility] Eosinophils/100 WBC (Bld) 0.5 % Normal 0.0-6.0 [facility] Comment on above: Order Comment: Check Chest Tube Position, S/P Chest tube DC'd Performed By: #### 5 0103 ####[facility] Erythrocyte distribution width (RBC) [Ratio] 28.7 % High 11.5-15.0 [facility] Comment on above: Order Comment: Check Chest Tube Position, S/P Chest tube DC'd Performed By: #### 5 0103 ####[facility] Hematocrit (Bld) [Volume fraction] 29.1 % Low 36.0-45.0 [facility] Comment on above: Order Comment: Check Chest Tube Position, S/P Chest tube DC'd Performed By: #### 5 0103 ####[facility] Hemoglobin (Bld) [Mass/Vol] 8.3 g/dL Low 12.0-15.0 [facility] Comment on above: Order Comment: Check Chest Tube Position, S/P Chest tube DC'd Performed By: #### 3 ####[facility] HYPO Slight Normal [facility] Comment on above: Order Comment: Check Chest Tube Position, S/P Chest tube DC'd Performed By: #### 3 ####[facility] IMMATURE GRANS 0.5 % Normal 0.0-1.0 [facility] Comment on above: Order Comment: Check Chest Tube Position, S/P Chest tube DC'd Performed By: #### 5 0103 ####[facility] Lymphocytes (Bld) [#/Vol] 0.8 10*3/uL Low 1.2-4.0 [facility] Comment on above: Order Comment: Check Chest Tube Position, S/P Chest tube DC'd Performed By: #### 5 0103 ####[facility] Lymphocytes/100 WBC (Bld) 5.5 % Low 20.0-45.0 [facility] Comment on above: Order Comment: Check Chest Tube Position, S/P Chest tube DC'd Performed By: #### 5 0103 ####[facility] MCH (RBC) [Entitic mass] 21.7 pg Low 27.0-33.0 [facility] Comment on above: Order Comment: Check Chest Tube Position, S/P Chest tube DC'd Performed By: #### 5 0103 ####[facility] MCHC (RBC) [Mass/Vol] 28.5 g/dL Low 32.0-35.0 [facility] Comment on above: Order Comment: Check Chest Tube Position, S/P Chest tube DC'd Performed By: #### 5 0103 ####[facility] MCV (RBC) [Entitic vol] 76.2 fL Low 82.0-98.0 [facility] Comment on above: Order Comment: Check Chest Tube Position, S/P Chest tube DC'd Performed By: #### 5 3 ####[facility] Monocytes (Bld) [#/Vol] 1.1 10*3/uL High 0.1-1.0 [facility] Comment on above: Order Comment: Check Chest Tube Position, S/P Chest tube DC'd Performed By: #### 5 3 ####[facility] MONOS 7.3 % Normal 5.0-12.0 [facility] Comment on above: Order Comment: Check Chest Tube Position, S/P Chest tube DC'd Performed By: #### 5 3 ####[facility] Neutrophils/100 WBC (Bld) 85.9 % High 40.0-72.0 [facility] Comment on above: Order Comment: Check Chest Tube Position, S/P Chest tube DC'd Performed By: #### 5 0103 ####[facility] [place] [address], [facility] Nucleated RBC/100 WBC (Bld) [Ratio] 0 % Normal 0-0 [facility] Comment on above: Order Comment: Check Chest Tube Position, S/P Chest tube DC'd Performed By: #### 5 0103 ####[facility] [facility] [address], [facility] PLAT CNT 149 10*3/uL Low 150-400 [facility] Comment on above: Order Comment: Check Chest Tube Position, S/P Chest tube DC'd Performed By: #### 5 0103 ####[facility] [facility].[address] POIK Slight Normal [facility] Comment on above: Order Comment: Check Chest Tube Position, S/P Chest tube DC'd Performed By: #### 5 0103 ####[facility] [facility].[address] POLY Slight Normal [facility] Comment on above: Order Comment: Check Chest Tube Position, S/P Chest tube DC'd Performed By: #### 5 0103 ####[facility] [place] [address], [facility] RBC (Bld) [#/Vol] 3.82 10*6/uL Normal 3.80-5.00 [facility] Comment on above: Order Comment: Check Chest Tube Position, S/P Chest tube DC'd Performed By: #### 5 0103 ####[facility] [place] [address], [facility] WBC (Bld) [#/Vol] 15.41 10*3/uL High 4.00-10.60 [facility] Comment on above: Order Comment: Check Chest Tube Position, S/P Chest tube DC'd Performed By: #### 5 0103 ####[facility] [place] [address], [facility] COMP METABOLIC PANELon 03-09 Albumin [Mass/Vol] 3.8 g/dL Normal 3.5-5.7 [facility] Comment on above: Order Comment: No: D o not add to previous draw Performed By: #### 3 5200, 98609, 26872, 59015 #### [facility] [address] [place] [address], [facility] ALKALINE PHOSPH 52 IU/L Normal 34-104 [facility] Comment on above: Order Comment: No: D o not add to previous draw Performed By: #### 3 5200, 29480, 55905, 02596 #### [facility] [address] [place] [address], [place] ALT [Catalytic activity/Vol] 13 U/L Normal 7-52 [facility] Comment on above: Order Comment: No: D o not add to previous draw Performed By: #### 3 5200, 06567, 08414, 71391 #### [facility] [address] [place] [address], [place] AST [Catalytic activity/Vol] 14 U/L Normal 13-39 [facility] Comment on above: Order Comment: No: D o not add to previous draw Performed By: #### 3 5200, 63300, 48363, 51702 #### [facility] [address] [place] [address], [place] Bilirubin [Mass/Vol] 0.4 mg/dL Normal 0.3-1.0 [facility] Comment on above: Order Comment: No: D o not add to previous draw Performed By: #### 3 5200, 50292, 87169, 31815 #### [facility] [address] [place] [address], [place] Calcium [Mass/Vol] 9.2 mg/dL Normal 8.6-10.3 [facility] Comment on above: Order Comment: No: D o not add to previous draw Performed By: #### 3 5200, 41120, 60769, 06555 #### [facility] [address] [place] [address], [place] Chloride [Moles/Vol] 99 mmol/L Normal 98-107 [facility] Comment on above: Order Comment: No: D o not add to previous draw Performed By: #### 3 5200, 95752, 24399, 46689 #### [facility] [address] [place] [address], [place] CO2 [Moles/Vol] 33 mmol/L High 21-31 [facility] Comment on above: Order Comment: No: D o not add to previous draw Performed By: #### 3 5200, 33122, 91274, 38312 #### [facility] [address] [place] [address], [place] Creatinine [Mass/Vol] 0.79 mg/dL Normal 0.55-1.02 [facility] Comment on above: Order Comment: No: D o not add to previous draw Performed By: #### 3 5200, 45332, 13989, 49569 #### [facility] [address] [place] [address], [facility] Performed By: #### B LDCX1 #### [facility] [address] [place] [address] [address] Kayley Hatfield GFR/1.73 sq M.predicted among non-blacks MDRD (S/P/Bld) [Vol rate/Area] mL/min/{1.73_m2} Normal >60 [facility] Comment on above: Order Comment: No: D o not add to previous draw Result Comment: [facility]'s estimated glomerular filtration rate (eGFR) will [...] of individuals. Performed By: #### 3 0, 34426, 06417, 81254 #### [facility] [address] [place] [address], [place] Glucose [Mass/Vol] 125 mg/dL High 70-100 [facility] Comment on above: Order Comment: No: D o not add to previous draw Performed By: #### 3 0, 42234, 93155, 22662 #### [facility] [address] [place] [address], [place] Potassium [Moles/Vol] 4.7 mmol/L Normal 3.5-5.1 [facility] Comment on above: Order Comment: No: D o not add to previous draw Performed By: #### 3 0, 12682, 98582, 64373 #### [facility] [address] [place] [address], [place] Protein [Mass/Vol] 5.9 g/dL Low 6.0-8.3 [facility] Comment on above: Order Comment: No: D o not add to previous draw Performed By: #### 3 0, 40432, 87237, 84052 #### [facility] [address] [place] [address], [place] Sodium [Moles/Vol] 136 mmol/L Normal 136-145 [facility] Comment on above: Order Comment: No: D o not add to previous draw Performed By: #### 3 0, 23563, 51480, 08408 #### [facility] [address] [place] [address], [place] Urea nitrogen [Mass/Vol] 12 mg/dL Normal 7-25 [facility] Comment on above: Order Comment: No: D o not add to previous draw Performed By: #### 3 5200, 46092, 12752, 58054 #### [facility] [address] [place] [address], [place] LIPID PROFILEon 03-09-2022 Cholesterol [Mass/Vol] 160 mg/dL Normal 120-200 [facility] Comment on above: Order Comment: No: D o not add to previous draw Result Comment: CHOL ESTEROL REFERENCE RANGE: 20 YEARS AND OLDER CARDIOVASCULAR RISK Less than 200 mg/dl Low Risk 200 to 239 mg/dl Borderline Risk 240 mg/dl and greater High Risk Performed By: #### 3 5200, 08522, 96521, 08249 #### [facility] [address] [place] [address], [facility] Cholesterol in HDL [Mass/Vol] 76 mg/dL Normal 23-92 [facility] Comment on above: Order Comment: No: D o not add to previous draw Result Comment: Slig ht variation in normal range could be due to gender and/or age. HDL CHOLESTEROL REFERENCE RANGE: 20 years and older Cardiovascular Risk > or =60 mg/dL Desirable 40 TO 59 mg/dL Low Risk <40 mg/dL High Risk Performed By: #### 3 5200, 74944, 53363, 81640 #### [facility] [address] [place] [address], [place] Cholesterol in LDL [Mass/Vol] 48 mg/dL Normal 0-130 [facility] Comment on above: Order Comment: No: D o not add to previous draw Result Comment: LDL IS A CALCULATION LDL IS ONLY VALID IF THE TRIG IS LESS THAN 400. Performed By: #### 3 5200, 38433, 64658, 98159 #### [facility] [address] [place] [address], [place] Cholesterol.total/Cho lesterol in HDL [Mass ratio] 2.1 {ratio} Normal .0-4.5 [facility] Comment on above: Order Comment: No: D o not add to previous draw Performed By: #### 3 5200, 31179, 55511, 67437 #### [facility] [address] [place] [address], [facility] NON-HDL CHOLESTEROL 84 mg/dL Normal [facility] Comment on above: Order Comment: No: D o not add to previous draw Performed By: #### 3 5200, 59652, 98691, 08910 #### [facility] [address] [place] [address], [facility] Triglyceride [Mass/Vol] 179 mg/dL High 40-149 [facility] Comment on above: Order Comment: No: D o not add to previous draw Result Comment: TRIG LYCERIDE REFERENCE RANGE: 20 YEARS AND OLDER CARDIOVASCULAR RISK LESS THAN 150 mg/dl LOW RISK 150 TO 199 mg/dl BORDERLINE RISK 200 mg/dl AND GREATER HIGH RISK Performed By: #### 3 5200, 76121, 10571, 22336 #### [facility] [address] [place] [address], [facility] VLDL CHOL 36 mg/dL Normal 0-40 [facility] Comment on above: Order Comment: No: D o not add to previous draw Performed By: #### 3 5200, 28668, 27656, 54201 #### [facility] [address] [place] [address], [facility] POC GLUCOSE LABon 03-09-2022 Glucose [Mass/Vol] 105 mg/dL High 70-100 [facility] Comment on above: Performed By: #### 8 5499 ####[facility] [place] [address], [facility] POC SARS COV2 ANTIGEN NEGATI VEon 03-09-2022 POC SARS COV2 ANTIGEN NEG Negative Normal NEGATIVE [facility] Comment on above: Result Comment: Nega [...] antigen from SARS-CoV-2 in direct nasopharyngeal swab (PARAPLANNER) specimens from individuals who are suspected of [...] of Accreditation. Performed By: #### 3 2044 ####[address] PORTABLE CHEST 1 VIEWon PORTABLE CHEST [address] [facility] Department of Radiology [address] [place] [address] Patient Name: LISE CANALES : 1955 Sex: F Age: Race: White Pt. Location: [id number] Patient Status: I Ordered Date: 03/09/2022 8:55:00 [...] COPD. Electronically signed: Derek Ingram. Transcribed by: [email or web address], User Resident: Electronically Signed by: DEREK INGRAM @ 03/09/2022 02:48 PM Normal [facility] Comment on above: Order Comment: Check Chest Tube Position, S/P Chest tube DC'd TROPONIN-Ion 03-09-2022 Troponin I.cardiac [Mass/Vol] 0.00 ng/mL Normal 0.00-0.04 [facility] Comment on above: Order Comment: No: D o not add to previous draw Result Comment: REFE RENCE RANGES: 0.00 - 0.04 ng/ml NORMAL 0.05 - 0.50 ng/ml INDETERMINATE > 0.50 ng/ml CONSISTENT WITH AN M.I. Performed By: #### 3 2170, 55828, 90146, 31828 #### [facility] [address] Troponin I.cardiac [Mass/Vol] 0.01 ng/mL Normal 0.00-0.04 [facility] Comment on above: Order Comment: No: D o not add to previous draw Result Comment: REFE RENCE RANGES: 0.00 - 0.04 ng/ml NORMAL 0.05 - 0.50 ng/ml INDETERMINATE > 0.50 ng/ml CONSISTENT WITH AN M.I. Performed By: #### 3 5200 #### [facility] [address] Troponin I.cardiac [Mass/Vol] 0.00 ng/mL Normal 0.00-0.04 [facility] Comment on above: Order Comment: No: D o not add to previous draw Result Comment: REFE RENCE RANGES: 0.00 - 0.04 ng/ml NORMAL 0.05 - 0.50 ng/ml INDETERMINATE > 0.50 ng/ml CONSISTENT WITH AN M.I. Performed By: #### 3 5200, 42293, 80574, 90354 #### [facility] [address] TSH3 WITH REFLEX FT4on 03-09 TSH 3RD GENERATION 0.60 uIU/mL Normal 0.34-5.60 [facility] Comment on above: Order Comment: No: D o not add to previous draw Performed By: #### 3 5200, 13417, 77513, 62546 #### [facility] [address] URINALYSIS REFLEXon 03-09-20 22 Appearance (U) CLEAR Normal CLEAR [facility] Comment on above: Order Comment: Check Chest Tube Position, S/P Chest tube DC'd Performed By: #### 3 0922 ####[facility] Bilirubin Ql (U) Negative Normal NEGATIVE [facility] Comment on above: Order Comment: Check Chest Tube Position, S/P Chest tube DC'd Performed By: #### 3 0965 ####[facility] [facility] [place] [address], [facility] Color (U) STRAW Abnormal YELLOW [facility] Comment on above: Order Comment: Check Chest Tube Position, S/P Chest tube DC'd Performed By: #### 3 0965 ####[facility] [facility] [place] [address], [facility] EPIS OCC Normal FEW,OCC,NONE SEEN [facility] Comment on above: Order Comment: Check Chest Tube Position, S/P Chest tube DC'd Performed By: #### 3 0965 ####[facility] [facility] [address], [facility] Glucose Ql (U) Negative Normal NEGATIVE [facility] Comment on above: Order Comment: Check Chest Tube Position, S/P Chest tube DC'd Performed By: #### 3 0965 ####[facility] [facility] [place] [address], [facility] Hemoglobin Ql (U) MODERATE Abnormal NEGATIVE [facility] Comment on above: Order Comment: Check Chest Tube Position, S/P Chest tube DC'd Performed By: #### 3 0965 ####[facility] [facility] [place] [address], [facility] KETONE Negative Normal NEGATIVE [facility] Comment on above: Order Comment: Check Chest Tube Position, S/P Chest tube DC'd Performed By: #### 3 0965 ####[facility] [facility] [place] [address], [facility] LEUK SHARMIN SMALL Abnormal NEGATIVE [facility] Comment on above: Order Comment: Check Chest Tube Position, S/P Chest tube DC'd Performed By: #### 3 0965 ####[facility] [facility] [place] [address], [facility] MUCUS THREADS OCC Abnormal NONE SEEN [facility] Comment on above: Order Comment: Check Chest Tube Position, S/P Chest tube DC'd Performed By: #### 3 0965 ####[facility] [facility].[address] Nitrite Ql (U) Negative Normal NEGATIVE [facility] Comment on above: Order Comment: Check Chest Tube Position, S/P Chest tube DC'd Performed By: #### 3 0965 ####[facility] pH (U) 6.0 [pH] Normal 5.0-8.0 [facility] Comment on above: Order Comment: Check Chest Tube Position, S/P Chest tube DC'd Performed By: #### 3 0965 ####[facility] [facility].[address] Protein Ql (U) Negative Normal NEGATIVE [facility] Comment on above: Order Comment: Check Chest Tube Position, S/P Chest tube DC'd Performed By: #### 3 0965 ####[facility] [facility].[address] RBC 6-10 Abnormal NONE SEEN [facility] Comment on above: Order Comment: Check Chest Tube Position, S/P Chest tube DC'd Performed By: #### 3 0965 ####[facility] [facility].[address] SPEC GRAV 1.015 Normal 1.015-1.020 [facility] Comment on above: Order Comment: Check Chest Tube Position, S/P Chest tube DC'd Performed By: #### 3 0965 ####[facility] [facility] [address] WBC UA 11-20 Abnormal NONE SEEN [facility] Comment on above: Order Comment: Check Chest Tube Position, S/P Chest tube DC'd Performed By: #### [id number] ####[facility] [place] [address], [place] CBC W MANUAL DIFFon 03-08-20 22 ATYPICAL LYMPH # Normal [facility] Comment on above: Performed By: #### C VDTBH #### [facility] [address] [place] [address] Dr. Kayley Hatfield ATYPICAL LYMPH % Normal [facility] Comment on above: Performed By: #### C VDTBH #### [facility] [address] [place] [address] Dr. Kayley Hatfield BAND # Normal 0.0-0.3 [facility] Comment on above: Performed By: #### C VDTBH #### [facility] [address] [place] [address] Dr. Kayley Hatfield BAND % Normal 0-5 [facility] Comment on above: Performed By: #### C VDTBH #### [facility] [address] [place] [address] Dr. Kayley Hatfield BASOM # 0.00 103/ul Normal 0.00-0.10 [facility] Comment on above: Performed By: #### C VDTBH #### [facility] [address] [place] [address] Dr. Kayley Hatfield BASOM % 0.0 % Critically low 0.2-2.0 [facility] Comment on above: Performed By: #### C VDTBH #### [facility] [address] [place] [address] Dr. Kayley Hatfield BLAST # Normal [facility] Comment on above: Performed By: #### C VDTBH #### [facility] [address] [place] [address] Dr. Kayley Hatfield BLAST % Normal [facility] Comment on above: Performed By: #### C VDTBH #### [facility] [address] [place] [address] Dr. Kayley Hatfield CORRECTED WBC Normal 4.0-11.0 [facility] Comment on above: Performed By: #### C VDTBH #### [facility] [address] [place] [address] Dr. Kayley Hatfield EOS # 0.14 103/ul Normal 0.00-0.70 [facility] Comment on above: Performed By: #### C VDTBH #### [facility] [address] [place] [address] Dr. Kayley Hatfield EOS% 1.0 % Normal 0.9-7.0 [facility] Comment on above: Performed By: #### C VDTBH #### [facility] [address] [place] [address] Dr. Kayley Hatfield HCT 27.5 % Critically low 36.0-48.0 [facility] Comment on above: Performed By: #### C VDTBH #### [facility] [address] [place] [address] Dr. Kayley Hatfield HGB 7.9 g/dl Critically low 12.0-16.0 [facility] Comment on above: Performed By: #### C VDTBH #### [facility] [address] [place] [address] Dr. Kayley Hatfield LYMPHM # 1.42 103/ul Normal 1.20-3.80 [facility] Comment on above: Performed By: #### C VDTBH #### [facility] [address] [place] [address] Dr. Kayley Hatfield LYMPHM% 10.0 % Critically low 20.5-60.0 [facility] Comment on above: Performed By: #### C VDTBH #### [facility] [address] [place] [address] Dr. Kayley Hatfield MCH 21.5 pg Critically low 26.7-34.0 [facility] Comment on above: Performed By: #### C VDTBH #### [facility] [address] [place] [address] Dr. Kayley Hatfield MCHC 28.7 g/dl Critically low 29.9-35.2 [facility] Comment on above: Performed By: #### C VDTBH #### [facility] [address] [place] [address] Dr. Kayley Hatfield MCV 74.7 fL Critically low 81.0-99.0 [facility] Comment on above: Performed By: #### C VDTBH #### [facility] [address] [place] [address] Dr. Kayley Hatfield METAMYELOCYTE # Normal [facility] Comment on above: Performed By: #### C VDTBH #### [facility] [address] [place] [address] Dr. Kayley Hatfield METAMYELOCYTE % Normal [facility] Comment on above: Performed By: #### C VDTBH #### [facility] [address] [place] [address] Dr. Kayley Hatfield MONOM# 2.13 103/ul Critically high 0.30-0.80 [facility] Comment on above: Performed By: #### C VDTBH #### [facility] [address] [place] [address] Dr. Kayley Hatfield MONOM% 15.0 % Critically high 1.7-12.0 [facility] Comment on above: Performed By: #### C VDTBH #### [facility] [address] [place] [address] Dr. Kayley Hatfield MPV 9.5 fL Normal 9.5-13.5 [facility] Comment on above: Performed By: #### C VDTBH #### [facility] [address] [place] [address] Dr. Kayley Hatfield MYELOCYTE # Normal [facility] Comment on above: Performed By: #### C VDTBH #### [facility] [address] [place] [address] Dr. Kayley Hatfield MYELOCYTE % Normal [facility] Comment on above: Performed By: #### C VDTBH #### [facility] [address] [place] [address] Dr. Kayley Hatfield NRBC Normal [facility] Comment on above: Performed By: #### C VDTBH #### [facility] [address] [place] [address] Dr. Kayley Hatfield PLT 180 103/ul Normal 150-450 [facility] Comment on above: Performed By: #### C VDTBH #### [facility] [address] [place], [place] [address] Dr. Kayley Hatfield RBC 3.68 106/ul Critically low 4.20-5.40 [facility] Comment on above: Performed By: #### C VDTBH #### [facility] [address] [place], [place] [address] Dr. Kayley Hatfield RDW 27.5 % Critically high 11.0-15.0 [facility] Comment on above: Performed By: #### C VDTBH #### [facility] [address] [address] [address] Kayley Hatfield SEG # 10.51 103/ul Critically high 1.40-6.50 [facility] [place] Comment on above: Performed By: #### C VDTBH #### [facility] [address] [place] [address] Dr. Kayley Hatfield SEG % 74.0 % Normal 43.0-75.0 [facility] Comment on above: Performed By: #### C VDTBH #### [facility] [address] [address] [address] Kayley Hatfield WBC 14.2 103/ul Critically high 4.0-11.0 [facility] Comment on above: Performed By: #### C VDTBH #### [facility] [address] [address] [address] Kayley Hatfield PRBC LEUKOREDUCEDon 03-08-20 ABO and Rh group Nom (Bld) Cross Match Result Compatible Unit Blood Type O Pos Unit Number [id number] Status Information Transfused Product ID Red Blood Cells Product Code [id number] Cross Match Result Compatible Blood Bank Notes CALLED TO VIC IN ICU @1657 Unit Blood Type O Pos Unit Number [id number] Status Information Transfused Product ID Red Blood Cells Product Code [id number] Normal [facility] Comment on above: Performed By: #### P RBC #### [facility] [address] [place] [address] Dr. Kayley Hatfield PROF CHEM 8 (BAS METB)on Anion gap [Moles/Vol] 10.1 mmol/L Normal Th [facility] Comment on above: Performed By: #### B [id number] #### [facility] [address] [place] [address] Dr. Kayley Hatfield Calcium [Mass/Vol] 8.8 mg/dL Normal 8.5-10.1 [facility] Comment on above: Performed By: #### B [id number] #### [facility] [address] [address] [address] Kayley Hatfield Chloride [Moles/Vol] 100 mmol/L Normal 98-107 [facility] Comment on above: Performed By: #### B [id number] #### [facility] [address] [place] [address] Dr. Kayley Hatfield CO2 [Moles/Vol] 34.2 mmol/L Critically high 21.0-32.0 [facility] Comment on above: Performed By: #### B LDCX1 #### [facility] [address] [place] [address] Dr. Kayley Hatfield EGFR-AF EQUATORIAL GUINEAN >60 Normal >=60 [facility] Comment on above: Performed By: #### B LDCX1 #### [facility] [address] [place] [address] Dr. Kayley Hatfield EGFR-NON AF EQUATORIAL GUINEAN >60 Normal >=60 [facility] Comment on above: Performed By: #### B [id number] #### [facility] [address] [place] [address] Dr. Kayley Hatfield Glucose [Mass/Vol] 107 mg/dL Critically high 74-106 [facility] Comment on above: Performed By: #### B LDCX1 #### [facility] [address] [address] [address] Kayley Hatfield Potassium [Moles/Vol] 4.3 mmol/L Normal 3.5-5.1 [facility] Comment on above: Performed By: #### B LDCX1 #### [facility] [address] [place] [address] Dr. Kayley Hatfield Sodium [Moles/Vol] 140 mmol/L Normal 136-[address] [facility] Comment on above: Performed By: #### B LDCX1 #### [facility] [address] [address] [address] Kayley Hatfield Urea nitrogen [Mass/Vol] 15.0 mg/dL Normal 7.0-18.0 [facility] Comment on above: Performed By: #### B [id number] #### [facility] [address] [address] [address] Kayley Hatfield Urea nitrogen/Creatinine [Mass ratio] 19.0 mg/mg Normal [facility] Comment on above: Performed By: #### B LDCX1 #### [facility] [address] [address] [address] Kayley Hatfield XR CHEST 1 Von [...] by: MIGUE REYNOSO Date: 2022-03-08 07:02 Normal [facility] CBC W MANUAL DIFFon 03-07-20 22 ACANTHOCYTES SLIGHT Normal [facility] Comment on above: Performed By: #### B [email or web address] #### [facility] [address] [address] [address] Kayley Hatfield ANISOCYTOSIS 2+ Normal [facility] Comment on above: Performed By: #### B [email or web address] #### [facility] [address] [address] [address] Kayley Hatfield ATYPICAL LYMPH # Normal [facility] Comment on above: Performed By: #### B LDCX1 #### [facility] [address] [address] [address] Kayley Hatfield ATYPICAL LYMPH % Normal [facility] Comment on above: Performed By: #### B LDCX1 #### [facility] [address] [place] [address] Dr. Kayley Hatfield BAND # 0.0 103/ul Normal 0.0-0.3 [facility] Comment on above: Performed By: #### B LDCX1 #### [facility] [address] [place] [address] Dr. Kayley Hatfield BAND % 0 % Normal 0-5 [facility] Comment on above: Performed By: #### B LDCX1 #### [facility] [address] [place] [address] Dr. Kayley Hatfield BASOM # 0.00 103/ul Normal 0.00-0.10 [facility] Comment on above: Performed By: #### B LDCX1 #### [facility] [address] [place] [address] Dr. Kayley Hatfield BASOM % 0.0 % Critically low 0.2-2.0 [facility] Comment on above: Performed By: #### B LDCX1 #### [facility] [address] [place] [address] Dr. Kayley Hatfield BLAST # Normal [facility] Comment on above: Performed By: #### B LDCX1 #### [facility] [address] [place] [address] Dr. Kayley Hatfield BLAST % Normal [facility] Comment on above: Performed By: #### B LDCX1 #### [facility] [address] [place] [address] Dr. Kayley Hatfield ANDREE CELLS SLIGHT Normal [facility] Comment on above: Performed By: #### B LDCX1 #### [facility] [address] [place] [address] Dr. Kayley Hatfield CORRECTED WBC Normal 4.0-11.0 [facility] Comment on above: Performed By: #### B LDCX1 #### [facility] [address] [place] [address] Dr. Kayley Hatfield EOS # 0.16 103/ul Normal 0.00-0.70 [facility] Comment on above: Performed By: #### B LDCX1 #### [facility] [address] [address] [address] Kayley Hatfield EOS% 1.0 % Normal 0.9-7.0 [facility] Comment on above: Performed By: #### B LDCX1 #### [facility] [address] [address] [address] Kayley Hatfield GIANT PLATELETS SEEN Normal [facility] Comment on above: Performed By: #### B LDCX1 #### [facility] [address] [address] [address] Kayley Hatfield HCT 31.1 % Critically low 36.0-48.0 [facility] Comment on above: Performed By: #### B [email or web address] #### [facility] [address] [place] [address] Dr. Kayley Hatfield HGB 9.1 g/dl Critically low 12.0-16.0 [facility] Comment on above: Performed By: #### B [email or web address] #### [facility] [address] [place] [address] Dr. Kayley Hatfield HYPOCHROMASIA 1+ Normal [facility] Comment on above: Performed By: #### B [email or web address] #### [facility] [address] [place] [address] Dr. Kayley Hatfield LYMPHM # 2.09 103/ul Normal 1.20-3.80 [facility] Comment on above: Performed By: #### B LDCX1 #### [facility] [address] [place] [address] Dr. Kayley Hatfield LYMPHM% 13.0 % Critically low 20.5-60.0 [facility] Comment on above: Performed By: #### B LDCX1 #### [facility] [address] [place] [address] Dr. Kayley Hatfield MCH 21.4 pg Critically low 26.7-34.0 [facility] Comment on above: Performed By: #### B LDCX1 #### [facility] [address] [address] [address] Kayley Hatfield MCHC 29.3 g/dl Critically low 29.9-35.2 [facility] Comment on above: Performed By: #### B LDCX1 #### [facility] [address] [address] [address] Kayley Hatfield MCV 73.0 fL Critically low 81.0-99.0 [facility] Comment on above: Performed By: #### B LDCX1 #### [facility] [address] [place] [address] Dr. Kayley Hatfield METAMYELOCYTE # Normal [facility] Comment on above: Performed By: #### B LDCX1 #### [facility] [address] [place] [address] Dr. Kayley Hatfield METAMYELOCYTE % Normal [facility] Comment on above: Performed By: #### B LDCX1 #### [facility] [address] [place] [address] Dr. Kayley Hatfield MICROCYTOSIS SLIGHT Normal [facility] Comment on above: Performed By: #### B LDCX1 #### [facility] [address] [place] [address] Dr. Kayley Hatfield MONOM# 0.48 103/ul Normal 0.30-0.80 [facility] Comment on above: Performed By: #### B LDCX1 #### [facility] [address] [place] [address] Dr. Kayley Hatfield MONOM% 3.0 % Normal 1.7-12.0 [facility] Comment on above: Performed By: #### B LDCX1 #### [facility] [address] [place] [address] Dr. Kayley Hatfield MPV 8.9 fL Critically low 9.5-13.5 [facility] Comment on above: Performed By: #### B LDCX1 #### [facility] [address] [place] [address] Dr. Kayley Hatfield MYELOCYTE # Normal [facility] Comment on above: Performed By: #### B LDCX1 #### [facility] [address] [address] [address] Kayley Hatfield MYELOCYTE % Normal [facility] Comment on above: Performed By: #### B LDCX1 #### [facility] [address] [address] [address] Kayley Hatfield NRBC Normal [facility] Comment on above: Performed By: #### B LDCX1 #### [facility] [address] [address] [address] Kayley Hatfield PLT 243 103/ul Normal 150-450 [facility] Comment on above: Performed By: #### B LDCX1 #### [facility] [address] [place] [address] Dr. Kayley Hatfield RBC 4.26 106/ul Normal 4.20-5.40 [facility] Comment on above: Performed By: #### B LDCX1 #### [facility] [address] [place] [address] Dr. Kayley Hatfield RDW 27.1 % Critically high 11.0-15.0 [facility] Comment on above: Performed By: #### B LDCX1 #### [facility] [address] [place] [address] Dr. Kayley Hatfield SEG # 13.36 103/ul Critically high 1.40-6.50 [facility] Comment on above: Performed By: #### B [id number] #### [facility] [address] [place] [address] Dr. Kayley Hatfield SEG % 83.0 % Critically high 43.0-75.0 [facility] Comment on above: Performed By: #### B LDCX1 #### [facility] [address] [place] [address] Dr. Kayley Hatfield WBC 16.1 103/ul Critically high 4.0-11.0 [facility] Comment on above: Performed By: #### B [email or web address] #### [facility] [address] [place] [address] CHEST WO CONon [...] Date: 2022-03-07 09:42 Normal [facility] HEMOGLOBIN AND HEMATOCRITon 03-07-2022 Hematocrit (Bld) [Volume fraction] 31.8 % Critically low 36.0-48.0 [facility] Comment on above: Performed By: #### H GBHCT #### [facility] [address] [address] [address] Kayley Hatfield Hemoglobin (Bld) [Mass/Vol] 9.5 g/dL Critically low 12.0-16.0 [facility] Comment on above: Performed By: #### H GBHCT #### [facility] [address] [address] [address] Kayley Hatfield RETICULOCYTEon 03-07-2022 RETIC 1.92 % Normal 0.60-3.10 [facility] Comment on above: Performed By: #### O BSCRN #### [facility] [address] [address] [address] Kayley Hatfield XR CHEST 1 Von [...] Date: 2022-03-07 12:54 Normal [facility] XR CHEST 1 V EXAM: XR [...] Date: 2022-03-07 07:10 Normal [facility] BNPon 03-06-2022 Natriuretic peptide B (Bld) [Mass/Vol] 441.0 pg/mL Normal <=900.0 [facility] Comment on above: Performed By: #### H GBHCT #### [facility] [address] [address] [address] Kayley Hatfield CBC AUTO DIFFon 03-06-2022 BASO # 0.1 103/ul Normal 0.0-0.1 [facility] Comment on above: Performed By: #### O BSCRN #### [facility] [address] [place] [address] Dr. Kayley Hatfield Basophils/100 WBC (Bld) 0.7 % Normal 0.2-2.0 [facility] Comment on above: Performed By: #### O BSCRN #### [facility] [address] [place] [address] Dr. Kayley Hatfield EO # 0.1 103/ul Normal 0.0-0.7 [facility] Comment on above: Performed By: #### O BSCRN #### [facility] [address] [place] [address] Dr. Kayley Hatfield Eosinophils/100 WBC (Bld) 0.7 % Critically low 0.9-7.0 [facility] Comment on above: Performed By: #### O BSCRN #### [facility] [address] [place] [address] Dr. Kayley Hatfield Erythrocyte distribution width (RBC) [Ratio] 20.0 % Critically high 11.0-15.0 [facility] Comment on above: Performed By: #### O BSCRN #### [facility] [address] [place] [address] Dr. Kayley Hatfield Hematocrit (Bld) [Volume fraction] 20.1 % Critically low 36.0-48.0 [facility] Comment on above: Performed By: #### O BSCRN #### [facility] [address] [place] [address] Dr. Kayley Hatfield Hemoglobin (Bld) [Mass/Vol] 4.9 g/dL Critically low 12.0-16.0 [facility] Comment on above: Performed By: #### O BSCRN #### [facility] [address] [place] [address] Dr. Kayley Hatfield IG # 0.12 10e3/ul Critically high 0.00-0.03 [facility] [place] Comment on above: Performed By: #### O BSCRN #### [facility] [address] [place] [address] Dr. Kayley Hatfield IG % 0.8 % Critically high 0.0-0.5 [facility] Comment on above: Performed By: #### O BSCRN #### [facility] [address] [place] [address] Dr. Kayley Hatfield LYMPH # 1.0 103/ul Critically low 1.2-3.8 [facility] Comment on above: Performed By: #### O BSCRN #### [facility] [address] [place] [address] Dr. Kayley Hatfield Lymphocytes/100 WBC (Bld) 6.5 % Critically low 20.5-60.0 [facility] Comment on above: Performed By: #### O BSCRN #### [facility] [address] [place] [address] Dr. Kayley Hatfield MANUAL DIFF REQ NO Normal [facility] Comment on above: Performed By: #### O BSCRN #### [facility] [address] [place] [address] Dr. Kayley Hatfield MCH (RBC) [Entitic mass] 15.2 pg Critically low 26.7-34.0 [facility] Comment on above: Performed By: #### O BSCRN #### [facility] [address] [place] [address] Dr. Kayley Hatfield MCHC (RBC) [Mass/Vol] 24.4 g/dL Critically low 29.9-35.2 [facility] [facility] Comment on above: Performed By: #### O BSCRN #### [facility] [address] [place] [address] Dr. Kayley Hatfield MCV (RBC) [Entitic vol] 62.2 fL Critically low 81.0-99.0 [facility] Comment on above: Performed By: #### O BSCRN #### [facility] [address] [place] [address] Dr. Kayley Hatfield MONO # 0.5 103/ul Normal 0.3-0.8 [facility] Comment on above: Performed By: #### O BSCRN #### [facility] [address] [place] [address] Dr. Kayley Hatfield Monocytes/100 WBC (Bld) 3.5 % Normal 1.7-12.0 [facility] Comment on above: Performed By: #### O BSCRN #### [facility] [address] [address] [address] Kayley Hatfield NEUT # 13.2 103/ul Critically high 1.4-6.5 [facility] Comment on above: Performed By: #### O BSCRN #### [facility] [address] [place] [address] Dr. Kayley Hatfield Neutrophils/100 WBC (Bld) 87.8 % Critically high 43.0-75.0 [facility] Comment on above: Performed By: #### O BSCRN #### [facility] [address] [place] [address] Dr. Kayley Hatfield Platelet mean volume (Bld) [Entitic vol] 9.1 fL Critically low 9.5-13.5 [facility] Comment on above: Performed By: #### O BSCRN #### [facility] [address] [place] [address] Dr. Kayley Hatfield PLT 384 103/ul Normal 150-450 [facility] Comment on above: Performed By: #### O BSCRN #### [facility] [address] [place] [address] Dr. Kayley Hatfield RBC 3.23 106/ul Critically low 4.20-5.40 [facility] Comment on above: Performed By: #### O BSCRN #### [facility] [address] [place] [address] Dr. Kayley Hatfield WBC 15.1 103/ul Critically high 4.0-11.0 [facility] Comment on above: Performed By: #### O BSCRN #### [facility] [address] [place] [address] Dr. Kayley Hatfield CULTURE BLOODon 03-06-2022 Microscopic examination of blood, culture Culture Observations: NO GROWTH AT 5 DAYS. Normal [facility] Comment on above: Performed By: #### C VDTBH #### [facility] [address] [place] [address] Dr. Kayley Hatfield Performed By: #### B [id number] #### [facility] [address] [place] [address] Dr. Kayley Hatfield Covid-19 PCR (CVDTB)on 02-07 SARS-CoV-2 (COVID-19) RNA ELBA+probe Ql (Unsp spec) Not detected Normal NOT DETECTED [facility] Comment on above: Result Comment: When [...] for this test is supported by the [place] of Health and Human Service's declaration that [...] By: #### C VDTBH #### [facility] [address] [place] [address] Dr. Kayley Hatfield ER URINE PROFILEon Bilirubin Ql (U) Negative Normal NEGATIVE [facility] Comment on above: Performed By: #### P RBC #### [facility] [address] [place] [address] Dr. Kayley Hatfield Clarity (U) CLEAR Normal CLEAR [facility] Comment on above: Performed By: #### P RBC #### [facility] [address] [place] [address] Dr. Kayley Hatfield Color (U) LT. YELLOW Normal YELLOW [facility] Comment on above: Performed By: #### P RBC #### [facility] [address] [place] [address] Dr. Kayley Hatfield ERUAHD A micrscopic examination will be performed if indicated. Normal [facility] Comment on above: Performed By: #### P RBC #### [facility] [address] [place] [address] Dr. Kayley Hatfield Glucose Ql (U) Negative Normal NEGATIVE [facility] Comment on above: Performed By: #### P RBC #### [facility] [address] [address] [address] Kayley Hatfield Hemoglobin Ql (U) Negative Normal NEGATIVE [facility] Comment on above: Performed By: #### P RBC #### [facility] [address] [place] [address] Dr. Kayley Hatfield Ketones Ql (U) Negative Normal NEGATIVE [facility] Comment on above: Performed By: #### P RBC #### [facility] [address] [place] [address] Dr. Kayley Hatfield LEUKOCYTES Negative Normal NEGATIVE [facility] Comment on above: Performed By: #### P RBC #### [facility] [address] [place] [address] Dr. Kayley Hatfield Nitrite Ql (U) Negative Normal NEGATIVE [facility] Comment on above: Performed By: #### P RBC #### [facility] [address] [place] [address] Dr. Kayley Hatfield pH (U) 6.0 [pH] Normal 5-9 [facility] Comment on above: Performed By: #### P RBC #### [facility] [address] [place] [address] Dr. Kayley Hatfield SPEC GRAVITY 1.010 Normal 1.005-<=1.025 [facility] Comment on above: Performed By: #### P RBC #### [facility] [address] [place] [address] Dr. Kayley Hatfield UA PROTEIN Negative Normal NEGATIVE/ TRACE [facility] Comment on above: Performed By: #### P RBC #### [facility] [address] [place] [address] Dr. Kayley Hatfield UR MICRO IND NOT INDICATED Normal [facility] Comment on above: Performed By: #### P RBC #### [facility] [address] [place] [address] Dr. Kayley Hatfield Urobilinogen Qn (U) 0.2 {Lu'U}/dL Normal 0.2 - 1. 0 [facility] Comment on above: Performed By: #### P RBC #### [facility] [address] [place] [address] Dr. Kayley Hatfield FERRITINon 03-06-2022 Ferritin [Mass/Vol] 4.0 ng/mL Critically low 8.0-252.0 [facility] Comment on above: Performed By: #### O BSCRN #### [facility] [address] [place] [address] Dr. Kayley Hatfield IRON AND TIBCon 03-06-2022 % SATURATION 2.3 % Normal [facility] Comment on above: Performed By: #### C VDTBH #### [facility] [address] [place] [address] Dr. Kayley Hatfield Iron [Mass/Vol] 12.0 ug/dL Critically low 50.0-170.0 [facility] Comment on above: Performed By: #### C VDTBH #### [facility] [address] [place] [address] Dr. Kayley Hatfield TIBC DIRECT 532.0 ug/dL Critically high 250.0-450.0 [facility] Comment on above: Performed By: #### C VDTBH #### [facility] [address] [place] [address] Dr. Kayley Hatfield OCC BLD IMMUNO SCREENon 02-07 OCCULT BLOOD Negative Normal NEGATIVE [facility] Comment on above: Performed By: #### O BSCRN #### [facility] [address] [place] [address] Dr. Kayley Hatfield PROF 14(COMP METB)on 022 Albumin [Mass/Vol] 3.6 g/dL Normal 3.4-5.0 [facility] Comment on above: Performed By: #### H GBHCT #### [facility] [address] [place] [address] Dr. Kayley Hatfield Albumin/Globulin [Mass ratio] 1.2 {ratio} Normal [facility] Comment on above: Performed By: #### H GBHCT #### [facility] [address] [address] [address] Kayley Hatfield ALP [Catalytic activity/Vol] 71 U/L Normal 46-116 [facility] Comment on above: Performed By: #### H GBHCT #### [facility] [address] [address] [address] Kayley Hatfield ALT [Catalytic activity/Vol] 20 U/L Normal 14-59 [facility] Comment on above: Performed By: #### H GBHCT #### [facility] [address] [place] [address] Dr. Kayley Hatfield Anion gap [Moles/Vol] 9.8 mmol/L Normal [facility] Comment on above: Performed By: #### H GBHCT #### [facility] [address] [address] [address] Kayley Hatfield AST [Catalytic activity/Vol] 12 U/L Critically low 15-37 [facility] Comment on above: Performed By: #### H GBHCT #### [facility] [address] [place] [address] Dr. Kayley Hatfield Bilirubin [Mass/Vol] 0.4 mg/dL Normal 0.2-1.0 [facility] Comment on above: Performed By: #### H GBHCT #### [facility] [address] [address] [address] Kayley Hatfield Calcium [Mass/Vol] 9.0 mg/dL Normal 8.5-10.1 [facility] Comment on above: Performed By: #### H GBHCT #### [facility] [address] [place] [address] Dr. Kayley Hatfield Chloride [Moles/Vol] 99 mmol/L Normal 98-107 [facility] Comment on above: Performed By: #### H GBHCT #### [facility] [address] [place] [address] Dr. Kayley Hatfield CO2 [Moles/Vol] 31.5 mmol/L Normal 21.0-32.0 [facility] Comment on above: Performed By: #### H GBHCT #### [facility] [address] [address] [address] Kayley Hatfield Creatinine [Mass/Vol] 0.89 mg/dL Normal 0.55-1.02 [facility] Comment on above: Performed By: #### H GBHCT #### [facility] [address] [address] [address] Kayley Hatfield EGFR-AF EQUATORIAL GUINEAN >60 Normal >=60 [facility] Comment on above: Performed By: #### H GBHCT #### [facility] [address] [address] [address] Kayley Hatfield EGFR-NON AF EQUATORIAL GUINEAN >60 Normal >=60 [facility] Comment on above: Performed By: #### H GBHCT #### [facility] [address] [address] [address] Kayley Hatfield Globulin (S) [Mass/Vol] 3.1 g/dL Normal [facility] Comment on above: Performed By: #### H GBHCT #### [facility] [address] [address] [address] Kayley Hatfield Glucose [Mass/Vol] 174 mg/dL Critically high 74-106 [facility] Comment on above: Performed By: #### H GBHCT #### [facility] [address] [address] [address] Kayley Hatfield Potassium [Moles/Vol] 4.3 mmol/L Normal 3.5-5.1 [facility] Comment on above: Performed By: #### H GBHCT #### [facility] [address] [address] [address] Kayley Hatfield Protein [Mass/Vol] 6.7 g/dL Normal 6.4-8.2 [facility] Comment on above: Performed By: #### H GBHCT #### [facility] [address] [address] [address] Kayley Hatfield Sodium [Moles/Vol] 136 mmol/L Normal 136-145 [facility] Comment on above: Performed By: #### H GBHCT #### [facility] [address] [address] [address] Kayley Hatfield Urea nitrogen [Mass/Vol] 17.0 mg/dL Normal 7.0-18.0 [facility] Comment on above: Performed By: #### H GBHCT #### [facility] [address] [id number] [address] Kayley Hatfield Urea nitrogen/Creatinine [Mass ratio] 19.1 mg/mg Normal [facility] Comment on above: Performed By: #### H GBHCT #### [facility] [address] [place] [address] Dr. Kayley Hatfield TROPONIN, HIGH SENSITIVITYon 03-06-2022 HSTROP 7.0 pg/mL Normal 4.0-51.3 [facility] Comment on above: Result Comment: CUT- OFF POINTS HAVE BEEN ESTABLISHED BASED ON THE FOURTH UNIVERSAL DEFINITIONS OF MYOCARDIAL INFARCTION. THE UPPER REFERENCE LIMIT (URL) OF TROPONIN, DEFINED THE 99TH PERCENTILE OF cTnI DISTRIBUTION IN A REFERENCE POPULATION, HAS BEEN CONFIRMED THE DECISION THRESHOLD FOR ID DIAGNOSIS. Performed By: #### H GBHCT #### [facility] [address] [place] [address] Dr. Kayley Hatfield TYPE AND SCREENon 03-06-2022 TYPE AND SCREEN Negative Normal [facility] Comment on above: Performed By: #### C VDTBH #### [facility] [address] [place], [place] [id number] Dr. Kayley Hatfield XR CHEST 1 Von [...] Date: 2022-03-06 16:10 Normal [facility] XR CHEST 1 V EXAMINATION: XR [...] Date: 2022-03-06 14:39 Normal [facility] XR DEXA BONE DENSITYon 12-22 XR [...] Date: 2021-12-22 17:05 Normal [facility] CARDIAC ABDIAZIZ ADMITon 022 CK [Catalytic activity/Vol] 21 U/L Critically low 26-192 [facility] Comment on above: Performed By: #### B [id number] #### [facility] [address] [place] [address] Dr. Kayley Hatfield CK.MB [Mass/Vol] 1.00 ng/mL Normal <=3.60 [facility] Comment on above: Performed By: #### B [id number] #### [facility] [address] [place] [address] Dr. Kayley Hatfield HSTROP 11.6 pg/mL Normal 4.0-51.3 [facility] Comment on above: Result Comment: CUT- OFF POINTS HAVE BEEN ESTABLISHED BASED ON THE FOURTH UNIVERSAL DEFINITIONS OF MYOCARDIAL INFARCTION. THE UPPER REFERENCE LIMIT (URL) OF TROPONIN, DEFINED THE 99TH PERCENTILE OF cTnI DISTRIBUTION IN A REFERENCE POPULATION, HAS BEEN CONFIRMED THE DECISION THRESHOLD FOR ID DIAGNOSIS. Performed By: #### B [id number] #### [facility] [address] [place] [address] Dr. Kayley Hatfield ROD 48 ng/mL Normal 9-82 [facility] Comment on above: Performed By: #### B [id number] #### [facility] [address] [place] [address] Dr. Kayley Hatfield CBC AUTO DIFFon 12-14-2021 BASO # 0.1 103/ul Normal 0.0-0.1 [facility] Comment on above: Performed By: #### P RBC #### [facility] [address] [place] [address] Dr. Kayley Hatfield Basophils/100 WBC (Bld) 0.9 % Normal 0.2-2.0 [facility] Comment on above: Performed By: #### P RBC #### [facility] [address] [place] [address] Dr. Kayley Hatfield EO # 0.1 103/ul Normal 0.0-0.7 [facility] Comment on above: Performed By: #### P RBC #### [facility] [address] [place] [address] Dr. Kayley Hatfield Eosinophils/100 WBC (Bld) 0.5 % Critically low 0.9-7.0 [facility] Comment on above: Performed By: #### P RBC #### [facility] [address] [place] [address] Dr. Kayley Hatfield Erythrocyte distribution width (RBC) [Ratio] 15.4 % Critically high 11.0-15.0 [facility] Comment on above: Performed By: #### P RBC #### [facility] [address] [place] [address] Dr. Kayley Hatfield Hematocrit (Bld) [Volume fraction] 29.3 % Critically low 36.0-48.0 [facility] Comment on above: Performed By: #### P RBC #### [facility] [address] [place] [address] Dr. Kayley Hatfield Hemoglobin (Bld) [Mass/Vol] 8.3 g/dL Critically low 12.0-16.0 [facility] Comment on above: Performed By: #### P RBC #### [facility] [address] [place] [address] Dr. Kayley Hatfield IG # 0.05 10e3/ul Critically high 0.00-0.03 [facility] Comment on above: Performed By: #### P RBC #### [facility] [address] [place] [address] Dr. Kayley Hatfield IG % 0.4 % Normal 0.0-0.5 [facility] Comment on above: Performed By: #### P RBC #### [facility] [address] [place] [address] Dr. Kayley Hatfield LYMPH # 1.2 103/ul Normal 1.2-3.8 [facility] Comment on above: Performed By: #### P RBC #### [facility] [address] [place] [address] Dr. Kayley Hatfield Lymphocytes/100 WBC (Bld) 10.6 % Critically low 20.5-60.0 [facility] Comment on above: Performed By: #### P RBC #### [facility] [address] [place] [address] Dr. Kayley Hatfield MANUAL DIFF REQ NO Normal [facility] Comment on above: Performed By: #### P RBC #### [facility] [address] [place] [address] Dr. Kayley Hatfield MCH (RBC) [Entitic mass] 21.4 pg Critically low 26.7-34.0 [facility] Comment on above: Performed By: #### P RBC #### [facility] [address] [address] [address] Kayley Hatfield MCHC (RBC) [Mass/Vol] 28.3 g/dL Critically low 29.9-35.2 [facility] Comment on above: Performed By: #### P RBC #### [facility] [address] [address] [address] Kayley Hatfield MCV (RBC) [Entitic vol] 75.5 fL Critically low 81.0-99.0 [facility] Comment on above: Performed By: #### P RBC #### [facility] [address] [address] [address] Kayley Hatfield MONO # 0.9 103/ul Critically high 0.3-0.8 [facility] Comment on above: Performed By: #### P RBC #### [facility] [address] [address] [address] Kayley Hatfield Monocytes/100 WBC (Bld) 7.6 % Normal 1.7-12.0 [facility] Comment on above: Performed By: #### P RBC #### [facility] [address] [address] [address] Kayley Hatfield NEUT # 9.2 103/ul Critically high 1.4-6.5 [facility] Comment on above: Performed By: #### P RBC #### [facility] [address] [address] [address] Kayley Hatfield Neutrophils/100 WBC (Bld) 80.0 % Critically high 43.0-75.0 [facility] Comment on above: Performed By: #### P RBC #### [facility] [address] [address] [address] Kayley Hatfield Platelet mean volume (Bld) [Entitic vol] 9.3 fL Critically low 9.5-13.5 [facility] Comment on above: Performed By: #### P RBC #### [facility] [address] [address] [address] Kayley Hatfield PLT 498 103/ul Critically high 150-450 [facility] Comment on above: Performed By: #### P RBC #### [facility] [address] [place] [address] Dr. Kayley Hatfield RBC 3.88 106/ul Critically low 4.20-5.40 [facility] Comment on above: Performed By: #### P RBC #### [facility] [address] [address] [address] Kayley Hatfield WBC 11.5 103/ul Critically high 4.0-11.0 [facility] Comment on above: Performed By: #### P RBC #### [facility] [address] [place] [address] Dr. Kayley Hatifeld ER URINE PROFILEon 2 Bilirubin Ql (U) Negative Normal NEGATIVE [facility] Comment on above: Performed By: #### H GBHCT #### [facility] [address] [place] [address] Dr. Kayley Hatfield Clarity (U) CLEAR Normal CLEAR [facility] Comment on above: Performed By: #### H GBHCT #### [facility] [address] [place] [address] Dr. Kayley Hatfield Color (U) LT. YELLOW Normal YELLOW [facility] Comment on above: Performed By: #### H GBHCT #### [facility] [address] [place] [address] Dr. Kayley [place] A micrscopic examination will be performed if indicated. Normal [facility] Comment on above: Performed By: #### H GBHCT #### [facility] [address] [place] [address] Dr. Kayley Hatfield Glucose Ql (U) Negative Normal NEGATIVE [facility] Comment on above: Performed By: #### H GBHCT #### [facility] [address] [place] [address] Dr. Kayley Hatfield Hemoglobin Ql (U) TRACE-INTACT Abnormal NEGATIVE [facility] Comment on above: Performed By: #### H GBHCT #### [facility] [address] [place] [address] Dr. Kayley Hatfield Ketones Ql (U) Negative Normal NEGATIVE [facility] Comment on above: Performed By: #### H GBHCT #### [facility] [address] [place] [address] Dr. Kayley Hatfield LEUKOCYTES Negative Normal NEGATIVE [facility] Comment on above: Performed By: #### H GBHCT #### [facility] [address] [address] [address] Kayley Hatfield Nitrite Ql (U) Negative Normal NEGATIVE [facility] Comment on above: Performed By: #### H GBHCT #### [facility] [address] [place] [address] Dr. Kayley Hatfield pH (U) 6.5 [pH] Normal 5-9 [facility] Comment on above: Performed By: #### H GBHCT #### [facility] [address] [place] [address] Dr. Kayley Hatfield SPEC GRAVITY 1.015 Normal 1.005-<=1.025 [facility] Comment on above: Performed By: #### H GBHCT #### [facility] [address] [place] [address] Dr. Kayley Hatfield UA PROTEIN Negative Normal NEGATIVE/ TRACE [facility] Comment on above: Performed By: #### H GBHCT #### [facility] [address] [place] [address] Dr. Kayley Hatfield UR MICRO IND INDICATED Normal [facility] Comment on above: Performed By: #### H GBHCT #### [facility] [address] [place] [address] Dr. Kayley Hatfield Urobilinogen Qn (U) 0.2 {Lu'U}/dL Normal 0.2 - 1. 0 [facility] Comment on above: Performed By: #### H GBHCT #### [facility] [address] [place] [address] Dr. Kayley Hatfield PROF 14(COMP METB)on 022 Albumin [Mass/Vol] 3.2 g/dL Critically low 3.4-5.0 Th [facility] Comment on above: Performed By: #### B [id number] #### [facility] [address] [address] [address] Kayley Hatfield Albumin/Globulin [Mass ratio] 0.8 {ratio} Normal [facility] Comment on above: Performed By: #### B [id number] #### [facility] [address] [address] [address] Kayley Hatfield ALP [Catalytic activity/Vol] 72 U/L Normal 46-116 [facility] Comment on above: Performed By: #### B [id number] #### [facility] [address] [address] [address] Kayley Hatfield ALT [Catalytic activity/Vol] 24 U/L Normal 14-59 [facility] Comment on above: Performed By: #### B [id number] #### [facility] [address] [place] [address] Dr. Kayley Hatfield Anion gap [Moles/Vol] 13.0 mmol/L Normal [facility] Comment on above: Performed By: #### B [id number] #### [facility] [address] [place] [address] Dr. Kayley Hatfield AST [Catalytic activity/Vol] 18 U/L Normal 15-37 [facility] Comment on above: Performed By: #### B [id number] #### [facility] [address] [place] [address] Dr. Kayley Hatfield Bilirubin [Mass/Vol] 0.3 mg/dL Normal 0.2-1.0 [facility] Comment on above: Performed By: #### B [id number] #### [facility] [address] [place] [address] Dr. Kayley Hatfield Calcium [Mass/Vol] 9.9 mg/dL Normal 8.5-10.1 [facility] Comment on above: Performed By: #### B [id number] #### [facility] [address] [place] [address] Dr. Kayley Hatfield Chloride [Moles/Vol] 98 mmol/L Normal 98-107 [facility] Comment on above: Performed By: #### B [id number] #### [facility] [address] [address] [address] Kayley Hatfield CO2 [Moles/Vol] 29.8 mmol/L Normal 21.0-32.0 [facility] Comment on above: Performed By: #### B [id number] #### [facility] [address] [address] [address] Kayley Hatfield Creatinine [Mass/Vol] 1.23 mg/dL Critically high 0.55-1.02 [facility] Comment on above: Performed By: #### B [id number] #### [facility] [address] [address] [address] Kayley Hatfield EGFR-AF EQUATORIAL GUINEAN 53 mL/min/1.73m2 Critically low >=60 [facility] Comment on above: Performed By: #### B [id number] #### [facility] [address] [place] [address] Dr. Kayley Hatfield EGFR-NON AF EQUATORIAL GUINEAN 44 mL/min/1.73m2 Critically low >=60 [facility] Comment on above: Performed By: #### B [id number] #### [facility] [address] [address] [address] Kayley Hatfield Globulin (S) [Mass/Vol] 3.9 g/dL Normal [facility] Comment on above: Performed By: #### B [id number] #### [facility] [address] [address] [address] Kayley Hatfield Glucose [Mass/Vol] 160 mg/dL Critically high 74-106 [facility] Comment on above: Performed By: #### B [id number] #### [facility] [address] [address] [address] Kayley Hatfield Potassium [Moles/Vol] 3.8 mmol/L Normal 3.5-5.1 [facility] Comment on above: Performed By: #### B [id number] #### [facility] [address] [address] [address] Kayley Hatfield Protein [Mass/Vol] 7.1 g/dL Normal 6.4-8.2 [facility] Comment on above: Performed By: #### B [id number] #### [facility] [address] [address] [address] Kayley Hatfield Sodium [Moles/Vol] 137 mmol/L Normal 136-145 [facility] Comment on above: Performed By: #### B [id number] #### [facility] [address] [address] [address] Kayley Hatfield Urea nitrogen [Mass/Vol] 20.0 mg/dL Critically high 7.0-18.0 [facility] Comment on above: Performed By: #### B [id number] #### [facility] [address] [address] [address] Kayley Hatfield Urea nitrogen/Creatinine [Mass ratio] 16.3 mg/mg Normal [facility] Comment on above: Performed By: #### B [id number] #### [facility] [address] [place] [address] Dr. Kayley Hatfield TROPONIN, HIGH SENSITIVITYon 12-14-2021 HSTROP 11.3 pg/mL Normal 4.0-51.3 [facility] Comment on above: Result Comment: CUT- OFF POINTS HAVE BEEN ESTABLISHED BASED ON THE FOURTH UNIVERSAL DEFINITIONS OF MYOCARDIAL INFARCTION. THE UPPER REFERENCE LIMIT (URL) OF TROPONIN, DEFINED THE 99TH PERCENTILE OF cTnI DISTRIBUTION IN A REFERENCE POPULATION, HAS BEEN CONFIRMED THE DECISION THRESHOLD FOR ID DIAGNOSIS. Performed By: #### P RTELEC #### [facility] [address] [place] [address] Dr. Kayley Hatfield URINE MICROSCOPIC ONLYon BACTERIA NONE SEEN Normal NONE SEEN [facility] Comment on above: Performed By: #### H GBHCT #### [facility] [address] [place] [address] Dr. Kayley Hatfield Bacteria identified Cx Nom (U) NOT INDICATED Normal [facility] Comment on above: Performed By: #### H GBHCT #### [facility] [address] [place] [address] Dr. Kayley Hatfield CAST SEEN Abnormal NONE SEEN [facility] Comment on above: Performed By: #### H GBHCT #### [facility] [address] [address] [address] Kayley Hatfield Crystals LM Nom (Urine sed) NONE SEEN Normal NONE SEEN [facility] Comment on above: Performed By: #### H GBHCT #### [facility] [address] [address] [address] Kayley Hatfield Epithelial cells LM Ql (Urine sed) FEW Abnormal NONE SEEN /RARE [facility] Comment on above: Performed By: #### H GBHCT #### [facility] [address] [place] [address] Dr. Kayley Hatfield HYALINE CAST RARE Normal [facility] Comment on above: Performed By: #### H GBHCT #### [facility] [address] [place] [address] Dr. Kayley Hatfield MUCOUS NONE SEEN Normal NONE SEEN [facility] Comment on above: Performed By: #### H GBHCT #### [facility] [address] [place] [address] Dr. Kayley Hatfield RBC 0-2 Normal 0-2 [facility] Comment on above: Performed By: #### H GBHCT #### [facility] [address] [place] [address] Dr. Kayley Hatfield WBC 0-2 Abnormal NONE SEEN [facility] Comment on above: Performed By: #### H GBHCT #### [facility] [address] [place] [address] Dr. Kayley Hatfield XR CHEST 1 Von [...] Date: 2021-12-14 13:43 Normal [facility] BUNon 12-12-2021 Urea nitrogen [Mass/Vol] 15.0 mg/dL Normal 7.0-18.0 [facility] Comment on above: Performed By: #### P RBC #### [facility] [address] [place] [address] Dr. Kayley Hatfield CALCIUMon 12-12-2021 Calcium [Mass/Vol] 9.1 mg/dL Normal 8.5-10.1 [facility] Comment on above: Performed By: #### C VDTBH #### [facility] [address] [place] [address] Dr. Kayley Hatfield CREATININEon 12-12-2021 Creatinine [Mass/Vol] 1.05 mg/dL Critically high 0.55-1.02 [facility] Comment on above: Performed By: #### P RBC #### [facility] [address] [place] [address] Dr. Kayley Htafield EGFR-AF EQUATORIAL GUINEAN >60 Normal >=60 [facility] Comment on above: Performed By: #### P RBC #### [facility] [address] [place] [address] Dr. Kayley Hatfield EGFR-NON AF EQUATORIAL GUINEAN 53 mL/min/1.73m2 Critically low >=60 [facility] Comment on above: Performed By: #### P RBC #### [facility] [address] [place] [address] Dr. Kayley Hatfield CRPon 12-12-2021 CRP [Mass/Vol] mg/L Normal <=1.0 [facility] Comment on above: Performed By: #### P RBC #### [facility] [address] [place] [address] Dr. Kayley Hatfield MAGNESIUMon 12-12-2021 Magnesium [Mass/Vol] 1.9 mg/dL Normal 1.8-2.4 [facility] Comment on above: Performed By: #### C VDTBH #### [facility] [address] [place] [address] Dr. Kayley Hatfield PHOSPHORUSon 12-12-2021 Phosphate [Mass/Vol] 4.1 mg/dL Normal 2.6-4.7 [facility] Comment on above: Performed By: #### C VDTBH #### [facility] [address] [address] [address] Kayley Hatfield SED RATE [facility] 2021 SED RATE 35 mm/hr Critically high <=30 [facility] Comment on above: Performed By: #### P RTELEC #### [facility] [address] [address] [address] Kayley Hatfield Vital Signs Date Time Vital Sign Value Performing Clinician Faci lity 06-26-2023 15:27-0500 Diastolic blood pressure 103 mm[Hg] MD Erasto Burroughs Work Phone: [facility] 06-26-2023 15:27-0500 Heart rate 81 /min MD Erasto Burroughs Work Phone: [facility] 06-26-2023 15:27-0500 Respiratory rate 18 /min MD Erasto Burroughs Work Phone: [facility] 06-26-2023 15:27-0500 SaO2% (BldA) [Mass fraction] 95 % MD Erasto Burroughs Work Phone: [facility] 06-26-2023 15:27-0500 Systolic blood pressure 162 mm[Hg] MD Erasto Burroughs Work Phone: [facility] 06-26-2023 13:44-0500 Body height 162.56 cm MD Erasto Burroughs Work Phone: [facility] 06-26-2023 13:44-0500 Body weight 59.87 kg MD Erasto Burroughs Work Phone: [facility] 06-26-2023 13:44-0500 Inhaled oxygen flow rate 2 L/min MD Erasto Burroughs Work Phone: [facility] Encounters Encounter Date Encounter Type Care Provider Facility Start: 05-12-2024 ambulatory Ihsan Smiley ty:[facility] Start: 01-07-2024 End: 01-07-2024 ambulatory [facility] Start: 11-09-2023 End: 11-10-2023 ambulatory Ihsan BROWN Facility:[facility] Start: 08-18-2023 Refill Erasto Leggett Work Phone: [facility] Comment on above: DDD (degenerative di sc disease), lumbar (Primary Dx) Start: 06-27-2023 ambulatory [facility] Start: 06-26-2023 End: 06-26-2023 ambulatory Remy Blissjace Facility:[facility] Start: 06-26-2023 End: 06-26-2023 Admission to same day surgery center MD Erasto Burroughs Work Phone: [facility] Work Phone: Start: 06-26-2023 End: 06-26-2023 ambulatory MD Erasto Burroughs Work Phone: [facility] Work Phone: Start: 06-14-2023 End: 06-14-2023 ambulatory SHAIKH HUMA Not Available Start: 06-05-2023 Evaluation and management of inpatient KONG CHRISTOFER [facility] Start: 06-05-2023 [facility] Start: 06-05-2023 Evaluation and management of inpatient NOTEXARKANAKRISTAN [facility] Start: 06-04-2023 End: 06-06-2023 Evaluation and management of inpatient AVINASH MARMOLEJOCHRIS [facility] Start: 05-15-2023 ambulatory Iman Jeter Facility:[facility] [...] examination without abnormal findings DR ERASTO BURROUGHS [facility] Start: 03-30-[address] ERASTO BURROUGHS Facil ity:[facility] Start: 03-29-2022 Encounter for genera l adult medical examination without abnormal findings DR ERASTO BURROUGHS [facility] Start: 03-28-2022 End: 03-30-2022 Evaluation and management of inpatient DR ERASTO BURROUGHS Facility:[facility] Start: 03-28-2022 End: 03-29-[address] ERASTO BURROUGHS Facility:[facility] Start: 03-28-2022 End: 03-29-2022 Encounter for general adult medical examination without abnormal findings DR ERASTO BURROUGHS Facility:[facility] Start: 03-08-2022 End: 03-15-2022 Evaluation and management of inpatient VALERIO ALI Facility:[facility] Start: 03-06-2022 End: 03-08-2022 Evaluation and [...] 09-05-2023 Hemoglobin A1c measurement Diabetes: Hemoglobin A1C [facility] Start: 08-27-2023 End: 08-27-2023 Patient encounter procedure 08/27/2023 2:30 PM EST Office Visit [facility] [address] [place] [id number] Erasto Burroughs MD [address] [place] [address] [facility] Start: 06-26-[address] [facility] Start: 03-09-2023 Influenza vaccination Influenza Vacc ine (#1) [facility] Start: 1997 Screening for malign ant neoplasm of breast Mammogram [facility] Start: 1976 Urine screening for protein Diabetes: Urine Protein Screening [facility] Start: 1967 Glaucoma screening Diabetes: R etinopathy Screening [facility] Start: 1957 Screening for malign ant neoplasm of colon [facility] Patient Education Esophageal Dilation [facility] Work Phone: Payers Date Payer Category Payer Medicare [id number] 2023 Self-pay [id number] 2022 Unknown [employer] [id number] 2022-Present [phone] [address] [address] [place] [address] [id number] 2013 Medicare MEDICARE MEDICAR E PART B [id number] 2013-[place] [address] Medicare [id number] 1959 Medicare [id number] 1959 Unknown [id number] 1959 Unknown [id number] 1957 Unknown [id number] 2.16.840.1.828269.3.579.2.64 7 1957 Unknown [id number] 2.16.840.1.865662.3.579.2.59 3 1957 Unknown [id number] 2.16.840.1.592165.3.579.2.59 3 1957 Unknown [id number] 2.16.840.1.216117.3.579.2.59 3 1957 Unknown [id number] 2.16.840.1.727686.3.579.2.59 3 1957 Unknown [id number] 2.16.840.1.773484.3.579.2.59 3 1957 Unknown [id number] 2.16.840.1.979313.3.579.2.59 3 1957 Unknown [id number] 2.16.840.1.441339.3.579.2.59 3 1957 Unknown [id number] 2.16.840.1.671705.3.579.2.59 3 1957 Unknown [id number] 2.16.840.1.122094.3.579.2.59 3 1957 Unknown [id number] 2.16.840.1.766016.3.579.2.59 3 1957 Unknown [id number] 2.16.840.1.779215.3.579.2.59 3 1957 Unknown [id number] 2.16.840.1.533582.3.579.2.59 3 1957 Unknown [id number] 2.16.840.1.822433.3.579.2.59 3 1957 Unknown [id number] 2.16.840.1.782758.3.579.2.12 59 1957 Unknown [id number] 2.16.840.1.813317.3.579.2.72 7 1957 Unknown [id number] 2.16.840.1.694369.3.579.2.72 7 1957 Unknown [id number] 2.16.840.1.817222.3.579.2.72 7 1957 Unknown [id number] 2.16.840.1.055534.3.579.2.72 7 Unknown [id number] 2.16.840.1.013817.3.579.2.53 1 Social History Date Type Detail Facility Start: 06-14-2023 End: 06-26-2023 Tobacco smoking status GAIS Ex-smoker (finding) [facility] Start: 1955 Sex Assigned At Female F [facility] End: 03-06-2022 History of tobacco use [...] Note Facility 01-07-2024 Note [facility] Subjective Lise Canales is a 68 y.o. year old female patient being seen for 6 mo follow up CAD and hypertension. 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 On 06/04/2023 she was admitted to [facility] transferred from the [facility] due to pneumonia. In that setting she was found to have minimally elevated troponin. Her echocardiogram and EKG were nonrevealing. She was discharged on medical therapy. In December 2023 she was admitted to the [facility] with pneumonia and sepsis. In that [...] distress. Breath (more content not included)... [facility] 06-27-2023 Note [facility] Subjective Lise Easton Covert is a 68 y.o. year old female patient being seen for follow up [facility] for NSTEMI. 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 On 06/04/2023 she was admitted to [facility] transferred from the [facility] due to pneumonia. In that setting [...] normal. All (more content not included)... [facility] 06-26-2023 Procedure note [facility] 06-06-2023 Note Hospital Medicine Discharge Summary Final Discharge Diagnosis: Community acquired pneumonia of right lower lobe of lung Admission Diagnosis: NSTEMI (non-ST elevated myocardial infarction) ([facility]) [I21.4] Hospital course: 68 years old female lady with a medical history of hypertension, hyperlipidemia, gastroesophageal reflux disease, carotid disease, fibromyalgia, arthritis, polymyalgia rheumatica, COPD, temporal arteritis, and psoriasis. Came into the [facility] ER as a transfer from [facility] for concern of chest pain and [...] Center 06/27/2023 3:45 PM Jer Neff MD [facility] Your medication list START taking these medications [...] HYDROcodone-acetaminophen 5-325 mg tablet Commonly known as: [place] melatonin 5 mg tablet metoprolol tartrate 25 [...] Your Medications These medications were sent to [id number] - [address] AT [address] [address] cefdinir 300 mg capsule doxycycline 100 mg capsule Lise is allergic to azithromycin and latex. [place]position[place] [facility] [place]charge Condition: Stable Code Status: Prior Diagnostic [...] Lungs: C (more content not included)... 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 Yes Does the patient have a family independence case manager assigned to them through their [...] Yes Type of Residence/Post Acute Needs Private residence;[facility] Is PT/OT appropriate? No Is PT/OT ordered? No Is SW consult appropriate? Yes Is SW consult ordered? Yes Do you understand the benefits of MyChart? Yes Were you able to send link and activate MyChart? MyChart already active [facility] 06-05-2023 Note . Hospital Medicine History and Physical 06/05/2023 1:22 AM THE HOSPITALIST TEAM PREFERS TO USE [email or web address] FOR COMMUNICATION 7AM-7PM. IF I DO NOT RESPOND WITHIN 15 MINUTES, PLEASE PAGE ME/CALL THROUGH THE DROSS SKIMMER. FROM 7PM-7AM, PLEASE PAGE [phone](COVR) Chief Complaint No chief complaint on file. History of Present Illness Lise Canales is an 68 y.o. female who came from home with NSTEMi. This is a 68 years old female lady with a medical history of hypertension, hyperlipidemia, gastroesophageal reflux disease, carotid disease, fibromyalgia, arthritis, polymyalgia rheumatica, COPD, temporal arteritis, and psoriasis. Came into the [facility] ER as a transfer from [facility] for concern of chest pain and [...] Date Noted NSTEMI (non-ST elevated myocardial infarction) ([facility]) 06/05/2023 Acute on chronic respiratory failure with hypoxia ([facility]) 04/01/2022 Anemia, unspecified 04/01/2022 Recurrent spontaneous pneumothorax 03/30/2022 Giant cell arteritis with polymyalgia rheumatica ([facility]) 10/11/2021 Pneumothorax on left 08/02/2016 Coronary atherosclerosis 06/15/2014 Dyslipidemia 06/15/2014 Status post percutaneous transluminal coronary angioplasty 06/15/2014 Angina pectoris ([facility]) 05/04/2014 Electrocardiogram abnormal 05/04/2014 Abdominal pain 04/24/2014 Altered mental status 04/24/2014 Benign essential hypertension 04/24/2014 Congestive heart failure ([facility]) 04/24/2014 Dyspnea 04/24/2014 Gastroesophageal reflux disease 04/24/2014 History of psychiatric disorder 04/24/2014 Hyperlipidemia 04/24/2014 Headache 04/24/2014 Raynaud's disease 04/24/2014 Other and unspecified noninfectious gastroenteritis and colitis(558.9) 05/15/2007 Candidiasis of mouth 04/17/2007 COPD (chronic obstructive pulmonary disease) ([facility]) 04/17/2007 Diarrhea 04/17/2007 Loss of weight 04/17/2007 Other psoriasis 04/17/2007 Psoriatic arthropathy ([facility]) 04/17/2007 Other pneumothorax 03/30/2022 Assessment and Plan [...] 92 -Scheduled (more content not included)... [facility] 03-15-2022 Note MR#: [id number] [facility] Pt. Name: Lise Canales Admitted: 03/08/2022 [...] female, who presented to the [facility] with shortness of breath and fatigue, [...] The patient was subsequently transferred to for [facility] for further workup, was admitted to [...] Penn MD Date Trans: 03/15/2022 04:48 P/gabriela [id number] cc: Erasto Burroughs M.D. [address] [facility] [address] [facility] 03-13-2022 Note MR#: [id number] [facility] Pt. Name: Lise Canales Admitted: 03/08/2022 [...] Pineda MD Date Trans: 03/13/2022 10:30 A/gabriela [id number] cc: Erasto Burroughs M.D. [address] [facility] [address] [facility] 03-09-2022 Note MR#: [id number] [facility] Pt. Name: Lise Canales Admitted: 03/05/2020 [...] gastritis, Helicobacter pylori infection, who presented to [facility] Emergency Department complaining of sudden onset [...] appointment with the primary care provider through [facility] for close followup for her [...] 2 to 4 weeks. Follow up at [facility] on 03/16/2022 at 9:50 a.m. [...] from me. Date Dict: 03/08/2022/03:04 P/Paulette Mccord RECORDING ENGINEER Date Trans: 03/09/2022 11:21 A/gabriela [id number] cc: Marti Poole M.D. [address] [facility] [id number] Erasto Burroughs M.D. [address] [place] [address] [facility] Evaluation note No assessment inform ation available [facility] Work Phone: Evaluation note Diagnosis DDD (degenerative disc disease), lumbar- Primary Degeneration of lumbar or lumbosacral intervertebral disc documented in this encounter [facility] and physical note Author Remy Givens [facility] June 26, 2023 2:44pm Note Date/Time June 26, 2023 2:44pm [facility] [address] [place] [address] Gastroenterology H&P Signed Patient: Lise Canales MR#: [id number] : 1955 Acct:[id number] Age/Sex: 68 / F Adm Date: 3 Loc: Room: Type: [facility] Attending Dr: Remy Givens MD Copies [...] <Electronically signed by Remy Givens MD> 06/26/23 [address] [facility] Work Phone: Hospital Discharge instructions Additional [...] NOT operate machinery such as power tools, [employer] mowers, [place], sewing machines, etc. for 24 hours. - [...] problems. -Follow up with PCP. -Office number [phone].[facility] Work Phone: Summary Purpose Family History [...] and content) DATE CREATED AUTHOR 04/11/2022 [facility] DATE CREATED AUTHOR AUTHOR'S ORGANIZ ATION 11/04/2022 [facility] DATE CREATED AUTHOR AUTHOR'S ORGANIZ ATION 06/17/2023 [facility] EPIC DATE CREATED AUTHOR AUTHOR'S ORGANIZ ATION 07/10/2023 [facility] DATE CREATED AUTHOR AUTHOR'S ORGANIZ ATION 11/13/2023 [place] [facility] DATE CREATED AUTHOR AUTHOR'S ORGANIZ ATION 02/14/2024 [facility] Care Teams (unrecognized sec tion and content) Team Status: Active Member Role Status Dates Erasto Burroughs MD Primary Care Provider Active Team Status: Inactive Member Role Status Dates Erasto Burroughs MD Primary Care Provider Active Remy Givens MD Attending Provider Active School Bus Aide Relationship Specialty Start Date End Date Erasto [...] BE BASED ON THE PRIMARY CLINICAL RECORDS. [employer] provides no warranty or guarantee of the accuracy or completeness of information in this document.
--- NOTE | 2024-02-18 19:25 | XR_ITS ---
The [address] [address] Patient Name: SANDRA Easton COVERT MRN: [id number] date: 1955 Sex: F Assigned Patient Location: ER Current Patient Location: ER Accession/Order Number: [id number] Exam Date: 02/18/2024 20:30 Report Date: 02/18/2024 21:43 At the request of: XAVIER MARKER Procedure: XR chest 2V XR chest 2V 02/18/2024 7:30 PM CDT: History: hx pneumonia Comparison: None. Technique: 2 view chest Findings: The cardiomediastinal silhouette is normal. The lungs are hyperexpanded but clear without infiltrate, effusion, or pneumothorax. There are background changes of COPD. There is biapical scar. There are surgical clips overlying the right mid chest. There is a coronary stent overlying the left heart. The bones are intact. XR/XR chest 2V Impression: No acute cardiopulmonary process. Electronically authenticated by: DONNIE OLIVIER Date: 02/18/2024 21:43
--- NOTE | 2024-02-18 19:29 | ED.GENADUL1 ---
HPI HPI - General Adult General Chief complaint: Weakness Stated complaint: UTI, Flank Pain Time Seen by Provider: 02/18/24 19:16 Source: patient Mode of arrival: Wheelchair History of Present Illness HPI narrative: This 68-year-old female who was recently admitted to this emergency department for urinary tract infection/pyelonephritis on the right and also found to have acute kidney injury and pneumonia presents for reevaluation of generalized weakness with a headache, nausea, dry heaves, diarrhea. She was discharged home on what appears to be Levaquin. She was admitted on and Sunday and discharged home on Sunday. She states she was feeling better on Sunday but starting yesterday she started declining. She has not had any appetite. She has had chills and sweats and nausea with dry heaves but no vomiting. She has also been experiencing diarrhea. She states she was having intermittent diarrhea before getting admitted. She denies any chest pain or more shortness of breath than usual. She states that she has a pulse ox and her pulse ox on the way here was 95% on room air but her pulse was in the 120s. She has ongoing right sided flank pain. She states she is urinating. It does not burn and she has not noticed any blood in it. I reviewed the patient's blood cultures and urine culture. Her blood cultures were negative for any growth. Urine culture was positive for Klebsiella. She was discharged home on Levaquin. Sensitivity testing is not available yet. Related Data Home Medications ?Medication ?Instructions ?Recorded ?Confirmed aspirin 81 mg tablet,delayed 81 mg PO DAILY 03/06/23 02/18/24 release atorvastatin 40 mg tablet 40 mg PO .QHS 03/06/23 02/18/24 duloxetine 30 mg capsule,delayed 90 mg PO DAILY 03/06/23 02/18/24 release eszopiclone 3 mg tablet (Lunesta) 3 mg PO .QHS PRN sleep 03/06/23 02/18/24 melatonin 5 mg tablet 5 mg PO .QHS 03/06/23 02/18/24 metoprolol tartrate 25 mg tablet 12.5 mg PO BID 03/06/23 02/18/24 omeprazole 40 mg capsule,delayed 40 mg PO BID 03/06/23 02/18/24 release pregabalin 100 mg capsule (Lyrica) 100 mg PO TID 03/06/23 02/18/24 albuterol sulfate 90 mcg/actuation 2 puff inhalation Q4H PRN 12/18/23 02/18/24 aerosol inhaler shortness of breath or wheezing amlodipine 5 mg tablet 5 mg PO QAM 12/18/23 02/18/24 guaifenesin 600 mg tablet, 1,200 mg PO BID 12/18/23 02/18/24 extended release 12 hr prednisone 5 mg tablet 10 mg PO DAILY 12/18/23 02/18/24 cholecalciferol (vitamin D3) 50 50 mcg PO DAILY 02/14/24 02/18/24 mcg (2,000 unit) capsule cranberry 500 mg capsule 500 mg PO DAILY 02/14/24 02/18/24 ferrous sulfate 325 mg (65 mg 325 mg PO DAILY 02/14/24 02/18/24 iron) tablet potassium chloride 20 mEq 20 meq PO DAILY PRN hypokalemia 02/14/24 02/18/24 tablet,extended release Previous Rx's ?Medication ?Instructions ?Recorded levofloxacin 500 mg tablet 500 mg PO DAILY 7 days #7 tabs 02/16/24 Allergies Allergy/AdvReac Type Severity Reaction Status Date / Time azithromycin Allergy Severe Unknown Verified 02/18/24 18:30 [From Zithromax Z-Leonardo] Latex, Natural Rubber Allergy Severe Unknown Verified 02/18/24 18:30 Opioid HPI Opioid Management Most Recent Opioid Data: Last Pain Scale 5 02/18/24 20:11 Last Pain Intensity 0 03/06/23 15:53 Last Pain Assessment 02/16/24 10:47 Last ORT Total Score 1 02/14/24 16:21 Last ORT Risk Category Low Risk 02/14/24 16:21 Review of Systems ROS Status of ROS 10 or more systems reviewed and unremarkable except as noted in history and below [facility] Medical History (Updated 02/18/24 @ 21:56 by Soledad Wasserman MD) Immunosuppressed status ?D84.9 - Immunodeficiency, unspecified (ICD-10) Chronic steroid use Temporal arteritis ?M31.6 - Other giant cell arteritis (ICD-10) CKD stage 3b, GFR 30-44 ml/min ?N18.32 - Chronic kidney disease, stage 3b (ICD-10) Chronic respiratory failure with hypoxia ?J96.11 - Chronic respiratory failure with hypoxia (ICD-10) Acute on chronic respiratory failure with hypoxia ?J96.21 - Acute and chronic respiratory failure with hypoxia (ICD-10) History of tobacco abuse ?Z87.891 - Personal history of nicotine dependence (ICD-10) Acute exacerbation of chronic obstructive pulmonary disease (COPD) ?J44.1 - Chronic obstructive pulmonary disease with (acute) exacerbation (ICD-10) CAD (coronary artery disease) ?I25.10 - Atherosclerotic heart disease of [place] coronary artery without angina pectoris (ICD-10) Essential hypertension ?I10 - Essential (primary) hypertension (ICD-10) Type 2 diabetes mellitus with hyperglycemia ?E11.65 - Type 2 diabetes mellitus with hyperglycemia (ICD-10) Polymyalgia rheumatica ?M35.3 - Polymyalgia rheumatica (ICD-10) Non-ST elevated myocardial infarction (non-STEMI) ?I21.4 - Non-ST elevation (NSTEMI) myocardial infarction (ICD-10) Hyperlipidemia ?E78.5 - Hyperlipidemia, unspecified (ICD-10) Hyperglycemia, drug-induced ?R73.9 - Hyperglycemia, unspecified (ICD-10) ?T50.905A - Adverse effect of unspecified drugs, medicaments and biological substances, initial encounter (ICD-10) COPD (chronic obstructive pulmonary disease) ?J44.9 - Chronic obstructive pulmonary disease, unspecified (ICD-10) Depression ?F32.A - Depression, unspecified (ICD-10) Acid reflux ?K21.9 - Gastro-esophageal reflux disease without esophagitis (ICD-10) Nerve pain ?M79.2 - Neuralgia and neuritis, unspecified (ICD-10) Back pain ?M54.9 - Dorsalgia, unspecified (ICD-10) Thoracotomy scar of right chest ?L90.5 - Scar conditions and fibrosis of skin (ICD-10) History of oxygen administration ?Z99.81 - Dependence on supplemental oxygen (ICD-10) UTI (urinary tract infection), bacterial ?N39.0 - Urinary tract infection, site not specified (ICD-10) ?A49.9 - Bacterial infection, unspecified (ICD-10) Urethral stenosis 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 [part of] (ICD-10) Stented coronary artery ?Z95.5 - Presence of coronary angioplasty implant and graft (ICD-10) Family History Mother Family history of COPD (chronic obstructive pulmonary disease) Brother Family history of COPD (chronic obstructive pulmonary disease) Father Family history of COPD (chronic obstructive pulmonary disease) Family history of stroke Social History Within the past year, how often did you have a drink containing alcohol: never Within the past year, how many standard drinks containing alcohol did you have on a typical day: 1 or 2 Within the past year, how often did you have six or more drinks on one occasion: never Total score: 0 Score interpretation: A score less than 3 is consistent with normal alcohol consumption. Smoking status: Former smoker Non-prescribed substance use: denies use Previous occupational history: disabled Highest level of school completed/degree received: Associate degree: academic program Are you now , , , , never or living with a partner: Little interest or pleasure in doing things: not at all Feeling down, depressed, or hopeless: not at all Feel stressed/tense/nervous/anxious/difficulty sleeping: only a little Do you think of yourself as: straight/heterosexual Gender Identity: female Exam Narrative Exam Narrative: Vital signs and Nursing Notes reviewed: Patient is afebrile, she is tachycardic with a pulse of 118, blood pressure is elevated at 139/97, she is not hypoxic with pulse ox of 98% on room air General: Awake, alert, oriented, nontoxic, mildly ill-appearing thin adult female looking older than her stated age, no respiratory distress, no active vomiting HEENT: Normocephalic atraumatic, mucous membranes are pink and dry, no scleral icterus noted Neck: Supple, no meningeal signs Chest: Diffusely diminished lung sounds with mild expiratory wheezing, no rhonchi or rales appreciated, no accessory muscle use, patient is speaking in complete sentences CVS: Regular rate and rhythm S1-S2, tachycardic at 118 at triage, no murmurs rubs or gallops, pulses are brisk and equal ABD: Soft, nondistended, nontender, no rebound guarding or rigidity, bowel sounds are normal, no pulsatile masses appreciated, tenderness to the right flank to palpation Extremities: Moving all extremities, no lower extremity tenderness or swelling noted, negative Homans' sign, pulses are brisk and equal bilaterally Skin: Normal in appearance without rash,pallor, petechiae or purpura Neuro: No focal deficits Constitutional Vital Signs, click to edit/add: Last Vital Signs Temp 97.7 F 02/18/24 18:32 Pulse 118 H 02/18/24 18:32 Resp 18 02/18/24 18:32 BP 139/97 H 02/18/24 18:32 Pulse Ox 98 02/18/24 18:32 O2 Del Method Room Air 02/18/24 18:32 Course Vital Signs Vital signs: Vital Signs Temperature 97.7 F 02/18/24 18:32 Pulse Rate 118 H 02/18/24 18:32 Respiratory Rate 18 02/18/24 18:32 Blood Pressure 139/97 H 02/18/24 18:32 Pulse Oximetry 98 02/18/24 18:32 Oxygen Delivery Method Room Air 02/18/24 18:32 Temperature 97.7 F 02/18/24 18:32 Pulse Rate 118 H 02/18/24 18:32 Respiratory Rate 18 02/18/24 18:32 Blood Pressure 139/97 H 02/18/24 18:32 Pulse Oximetry 98 02/18/24 18:32 Oxygen Delivery Method Room Air 02/18/24 18:32 Medical Decision Making MDM Narrative Medical decision making narrative: This 68-year-old female who was recently admitted for UTI/pyelonephritis and also met criteria for sepsis and was admitted last Sunday and discharged home Sunday presents for reevaluation of generalized weakness with diarrhea and nausea with dry heaves. She is currently on antibiotics, I believe it is Levaquin based on her discharge paperwork. She states she was having diarrhea prior to being admitted but is still having diarrhea. She states she has been having chills and generalized weakness. She has been sleeping a lot. She denies any chest pain or shortness of breath. She does have a history of COPD. The patient states she wants to be checked out because when she starts getting septic be she becomes septic quickly. In emergency department a septic workup was ordered including CBC with differential, comprehensive metabolic profile, urinalysis, GI panel for her diarrhea which she did not have while in the emergency department and lactic acid as well as a chest x-ray. Her white count today is normal, hemoglobin is stable. Her BUN and creatinine have improved since her discharge. Urinalysis is markedly improved with 2-5 white blood cells and trace bacteria. She does have Levaquin and Zofran at home. Chest x-ray was reviewed by radiology with no acute findings. She has a normal troponin, normal BNP. She has not had any diarrhea while in the emergency department to test. The results of her labs and x-ray were discussed with her and after a liter of fluid, Zofran and IV Zosyn she request to be discharged home. She states she can sleep in her own bed and does not wish to be admitted. The patient and her family were encouraged to return to the emergency department for worsening symptoms, inability to tolerate her diet or medications or any concerns. Before leaving the emergency department she was able to drink almost a whole bottle of water. She has had several trips to the bathroom independently without difficulty ambulating or signs of generalized weakness or focal weakness. Lab Data Labs: Lab Results 02/18/24 02/18/24 Range/Units 19:17 21:00 WBC 10.3 (4.0-11.0) 10^3/uL RBC 5.13 (4.20-5.40) 10^6/uL Hgb 15.5 (12.0-16.0) g/dL Hct 47.8 (36.0-48.0) % MCV 93.2 (81.0-99.0) fL MCH 30.2 (26.7-34.0) pg MCHC 32.4 (29.9-35.2) g/dL RDW 12.7 (11.0-15.0) % Plt Count 290 (150-450) 10^3/uL MPV 10.2 (9.5-13.5) fL Neut % (Auto) 70.5 (43.0-75.0) % Lymph % (Auto) 15.6 L (20.5-60.0) % Holmes % (Auto) 10.9 (1.7-12.0) % Eos % (Auto) 1.9 (0.9-7.0) % Baso % (Auto) 0.3 (0.2-2.0) % Neut # (Auto) 7.3 H (1.4-6.5) 10^3/uL Lymph # (Auto) 1.6 (1.2-3.8) 10^3/uL Holmes # (Auto) 1.1 H (0.3-0.8) 10^3/uL Eos # (Auto) 0.2 (0.0-0.7) 10^3/uL Baso # (Auto) 0.0 (0.0-0.1) 10^3/uL Abs Immat Gran (auto) 0.08 H (0.00-0.03) 10^3/uL Imm/Tot Granulo (auto) 0.8 H (0.0-0.5) % Sodium 135 L (136-145) mmol/L Potassium 3.3 L (3.5-5.1) mmol/L Chloride 95 L (98-107) mmol/L Carbon Dioxide 25.6 (21.0-32.0) mmol/L Anion Gap 17.7 BUN 9.0 (7.0-18.0) mg/dL Creatinine 1.15 H (0.55-1.02) mg/dL Est GFR ( Amer) 57 L (>=60) Est GFR (Non-Af Amer) 47 L (>=60) BUN/Creatinine Ratio 7.8 Glucose 90 (74-106) mg/dL Lactate 1.5 (0.4-2.0) mmol/L Calcium 9.6 (8.5-10.1) mg/dL Total Bilirubin 0.5 (0.2-1.0) mg/dL AST 13 L (15-37) U/L ALT 12 L (14-59) U/L Alkaline Phosphatase 81 (46-116) U/L Troponin I High Sens 13.4 (4.0-51.3) pg/mL NT-Pro-B Natriuret Pep 485.0 (<=900.0) pg/mL Total Protein 7.6 (6.4-8.2) g/dL Albumin 3.0 L (3.4-5.0) g/dL Globulin 4.6 g/dL Albumin/Globulin Ratio 0.7 Urine Color Lt. yellow (YELLOW) Urine Clarity Clear (CLEAR) Urine pH 6.5 (5.0-9.0) Ur Specific [place] 1.020 (1.005-1.025) Urine Protein Trace (NEG/TRACE) mg/dL Urine Glucose (UA) Negative (NEGATIVE) mg/dL Urine Ketones 40 A (NEGATIVE) mg/dL Urine Occult Blood Moderate A (NEGATIVE) Urine Nitrite Negative (NEGATIVE) Urine Bilirubin Negative (NEGATIVE) Urine Urobilinogen 0.2 (0.2-1.0) EU/dL Ur Leukocyte Esterase Negative (NEGATIVE) Urine RBC 2-5 A (0-2) #/HPF Urine WBC 2-5 A (NONE SEEN) #/HPF Ur Squamous Epith Cells Few A (NONE/RARE) #/LPF Urine Crystals None seen (None Seen) #/HPF Urine Bacteria Trace A (NONE SEEN) #/HPF Urine Casts None seen (NONE SEEN) #/LPF Urine Mucus None seen (NONE SEEN) Ur Culture Indicated? Already ordered Discharge Plan Discharge Stand Alone Forms: Portal Instructions Chief Complaint: Weakness Clinical Impression: Generalized weakness, Nausea, Diarrhea Patient Disposition: Home, Self-Care Time of Disposition Decision: 21:55 Condition: Good Prescriptions / Home Meds: No Action atorvastatin 40 mg tablet 40 mg PO .QHS metoprolol tartrate 25 mg tablet 12.5 mg PO BID omeprazole 40 mg capsule,delayed release(DR/EC) 40 mg PO BID duloxetine 30 mg capsule,delayed release(DR/EC) 90 mg PO DAILY aspirin 81 mg tablet,delayed release (DR/EC) 81 mg PO DAILY eszopiclone [Lunesta] 3 mg tablet 3 mg PO .QHS PRN (Reason: sleep) melatonin 5 mg tablet 5 mg PO .QHS pregabalin [Lyrica] 100 mg capsule 100 mg PO TID potassium chloride 20 mEq tablet extended release 20 meq PO DAILY PRN (Reason: hypokalemia) ferrous sulfate 325 mg (65 mg iron) tablet 325 mg PO DAILY cranberry 500 mg capsule 500 mg PO DAILY Rx Instructions: administer with a meal cholecalciferol (vitamin D3) 50 mcg (2,000 unit) capsule 50 mcg PO DAILY levofloxacin 500 mg tablet 500 mg PO DAILY 7 Days Qty: 7 0RF albuterol sulfate 90 mcg/actuation HFA aerosol inhaler 2 puff INHALATION Q4H PRN (Reason: shortness of breath or wheezing) guaifenesin 600 mg tablet extended release 12hr 1,200 mg PO BID amlodipine 5 mg tablet 5 mg PO QAM Hold Instructions: per doctor per pt prednisone 5 mg tablet 10 mg PO DAILY Hold Instructions: Hold until finish prednisone taper Print Language: Albanian Instructions: Acute Nausea and Vomiting (ED), Acute Diarrhea (ED), Weakness (ED) Referrals: Erasto Henry MD [Primary Care Provider] - 1 week
[2024-02-18 19:47] LABS: Basophils Percent Auto 0.3 % (0.2-2.0); Eosinophils Absolute Auto 0.2 10^3/uL (0.0-0.7); Eosinophils Percent Auto 1.9 % (0.9-7.0); Hematocrit 47.8 % (36.0-48.0); Hemoglobin 15.5 g/dL (12.0-16.0); Immature Granulocytes Abs Auto 0.08 10^3/uL (0.00-0.03); Immature Granulocytes Pct Auto 0.8 % (0.0-0.5); Lymphocytes Absolute Auto 1.6 10^3/uL (1.2-3.8); Lymphocytes Percent Auto 15.6 % (20.5-60.0); Mean Corpuscular HGB Conc 32.4 g/dL (29.9-35.2); Mean Corpuscular Hemoglobin 30.2 pg (26.7-34.0); Mean Corpuscular Volume 93.2 fL (81.0-99.0); Mean Platelet Volume 10.2 fL (9.5-13.5); Monocytes Absolute Auto 1.1 10^3/uL (0.3-0.8); Monocytes Percent Auto 10.9 % (1.7-12.0); Neutrophils Absolute Auto 7.3 10^3/uL (1.4-6.5); Neutrophils Percent Auto 70.5 % (43.0-75.0); Platelet Count 290 10^3/uL (150-450); Red Blood Count 5.13 10^6/uL (4.20-5.40); Red Cell Distribution Width 12.7 % (11.0-15.0); White Blood Count 10.3 10^3/uL (4.0-11.0)
[2024-02-18 20:06] LABS: Lactate/Lactic Acid 1.5 mmol/L (0.4-2.0)
[2024-02-18 20:11] LABS: Alanine Aminotransferase 12 U/L (14-59); Albumin Globulin Ratio 0.7; Alkaline Phosphatase 81 U/L (46-116); Anion Gap 17.7; Aspartate Amino Transferase 13 U/L (15-37); BUN Creatinine Ratio 7.8; Bilirubin Total 0.5 mg/dL (0.2-1.0); Calcium 9.6 mg/dL (8.5-10.1); Carbon Dioxide 25.6 mmol/L (21.0-32.0); Chloride 95 mmol/L (98-107); Estimated GFR (African America 57 (>=60); Estimated GFR (Non-African Ame 47 (>=60); Globulin 4.6 g/dL; Glucose 90 mg/dL (74-106); Potassium 3.3 mmol/L (3.5-5.1); Sodium 135 mmol/L (136-145); Total Protein 7.6 g/dL (6.4-8.2); Troponin I High Sensitivity 13.4 pg/mL (4.0-51.3)
[2024-02-18] MEDS: ONDANSETRON PF 4 MG/2 ML VIAL IV (20:11)
[2024-02-18] MEDS: ACETAMINOPHEN 325 MG TABLET 650 MG PO (20:11)
[2024-02-18] MEDS: 0.9 % SODIUM CHLORIDE 1,000 ML 999 ML IV (20:12)
[2024-02-18] MEDS: PIPERACILLIN SODIUM/TAZOBACTAM 3.375 GM in 0.9 % SODIUM CHLORIDE 50 ML IV (20:12)
[2024-02-18 21:24] LABS: Bilirubin Urine NEGATIVE (NEGATIVE); Blood Urine MODERATE (NEGATIVE); Clarity Urine CLEAR (CLEAR); Color Urine LT. YELLOW (YELLOW); Glucose Urine UA NEGATIVE (NEGATIVE); Ketones Urine 40 mg/dL (NEGATIVE); Leukocyte Esterase Urine NEGATIVE (NEGATIVE); Nitrite Urine NEGATIVE (NEGATIVE); Protein Urine TRACE mg/dL (NEG/TRACE); Urobilinogen Urine 0.2 EU/dL (0.2-1.0); pH Urine 6.5 (5.0-9.0)
[2024-02-18 21:27] LABS: Urine Microscopic Indicated YES
[2024-02-18 21:36] LABS: Bacteria Urine TRACE #/HPF (NONE SEEN); Mucus Urine NONE SEEN (NONE SEEN); Squamous Epithelial Cell Urine FEW #/LPF (NONE/RARE)
[2024-02-18 21:37] LABS: Cast Seen? NONE SEEN #/LPF (NONE SEEN); Crystals Seen? None Seen #/HPF (None Seen); Urine Culture Indicated ALREADY ORDERED
[2024-02-18 21:58] VITALS: BP 146/94; PULSE 98; O2SAT 100
== END 2024-02-18 21:59 | disposition home or self-care (01) ==
PROVIDERS: Emergency Provider Emergency Medicine; PCP Family Medicine
DX: R19.7 Diarrhea, unspecified (principal); R11.0 Nausea; R53.1 Weakness; Z87.440 Personal history of urinary (tract) infections; Z87.01 Personal history of pneumonia (recurrent); Z87.891 Personal history of nicotine dependence; J44.9 Chronic obstructive pulmonary disease, unspecified
CPT/HCPCS: 36415; 71046; 80053; 81001; 83605; 83880; 84484; 85025; 87040; 87086; 87507; 96361; 96365; 96375; 99285; J2405; J2543

== ENCOUNTER 2024-02-19 13:03 | Outpatient (OUT) | payer OTHER, MEDICARE, SELFPAY ==
--- NOTE | 2024-02-19 | CT_ITS ---
[address] [address] Patient Name: SANDRA Easton COVERT MRN: [id number] date: 1955 Sex: F Assigned Patient Location: CT Current Patient Location: [facility] [place] Accession/Order Number: [id number] Exam Date: 02/19/2024 13:15 Report Date: 02/21/2024 06:27 At the request of: ISHAN QUEZADA Procedure: CT lung screening low-dose EXAMINATION: CT lung screening low-dose HISTORY: former smoker COMPARISON: CT chest 12/19/2023, 02/11/2023 TECHNIQUE: Axial, Coronal, and Sagittal images were created without the administration of IV contrast material. Dose reduction techniques were achieved by using automated exposure control and/or adjustment of mA and/or kV according to patient size and/or use of iterative reconstruction technique. FINDINGS: LUNGS: Stable scarring in moderate emphysematous changes within the lungs. PLEURA: Stable calcified pleural plaque versus calcification of remote pleural hematoma. VASCULATURE: No abnormality. ROBLES: No mass or pathologic adenopathy. MEDIASTINUM: No mass or pathologic adenopathy. CARDIAC: No enlargement, pericardial thickening, or pericardial effusion. Coronary Artery calcifications: AORTA: No aneurysm or dissection. CHEST WALL: No mass or axillary adenopathy BONES: Moderate compression fracture of T12, stable. LIMITED ABDOMEN: No suspicious findings. Limited images of the upper abdomen. OTHER: Negative. CT/CT lung screening low-dose IMPRESSION: 1. Lung-RADS 2- Benign Appearance or Behavior. Nodules with a very low likelihood of becoming a clinically active cancer due to size or lack of growth. Follow-up CT Chest in 1 year. 2. Stable scarring in moderate emphysematous changes. 3. Stable T12 moderate compression fracture and moderate retropulsion of the posterior wall. Electronically authenticated by: MIGUE REYNOSO Date: 02/21/2024 06:27
== END 2024-02-19 13:04 | disposition home or self-care (01) ==
LOC: CT 13:03
PROVIDERS: PCP Family Medicine; Visit Provider Internal Medicine
DX: Z87.891 Personal history of nicotine dependence (principal)
CPT/HCPCS: 71271

== ENCOUNTER 2024-03-11 14:22 | Outpatient (OUT) | payer OTHER, MEDICARE, SELFPAY ==
--- OUTSIDE RECORDS SUMMARY | 2024-03-11 14:51 | XMS_ITS | CCD ---
Author Organization [facility] CliniSyal Care Team Providers Care Diesel Technician Name Role Phone IMAN WILLIS Admitting Unavailable [...] Unavailable NADERER, DR ERASTO Carrera Attending Unavailable MD Erasto Burroughs Primary Care Provider MD Remy Givens Attending Provider [phone] Remy Givens Attending Unavailable Remy Givens Admitting Unavailable Naderer, Erasto Primary Care Unavailable Erasto Burroughs MD Primary Care Provider [phone] Ihsan BROWN Attending Unavailable Ihsan BROWN Attending Unavailable Ihsan BROWN Attending Unavailable Iman Jeter Attending Unavaila ble MERZA, NOORALDIN Referring Unavailable MOUKARBELJER Attending Unavailable MOUKARBEL, JER Attending Unavailable AVINASH SERRANO Referring Unavailable KAUSHAL, JAZMIN Admitting Unavailable HORANIJORGEAR Attending Unavailable HORANIJORGEAR Referring Unavailable MERZA, NOORALDIN Referring Unavailable MERZA, NOORALDIN Referring Unavailable SHAIKH FINN Attending Unavailable ERASTO BURROUGHS Attending Unavailable Allergies Allergy Classification Reported Allergen(s) Allergy Type Date of Onset Reaction(s) Facility (4 sources) Azithromycin; Translations: [AZITHROMYCIN] Drug Allergy 9 [facility] Repository (5 sources) Latex; Translations: [Latex] Drug allergy (disorder) 7 [facility] Repository (1 source) Azithromycin Drug Allergy 2 [facility] Repository (1 source) Latex Drug allergy (disorder) 2 [facility] Repository (1 source) Azithromycin Drug Allergy 3 [facility] (1 source) Latex Allergy to substance 3 [facility] (1 source) Azithromycin; Translations: [Zithromax] Drug Allergy [facility] Repository Medications Current Medications Medication Drug [...] disease (4 sources) Atherosclerotic heart disease of [place] coronary artery without angina pectoris; Translations: [ATHSCL HEART DISEASE OF [place] CORONARY ARTERY W/O ANG PCTRS] Onset: 03-08-20 [...] disorders (2 sources) Dehydration; Translations: [Hyponatremia] Onset: 12-19-1906-14-2023 Episodic Mood disorders (1 source) Major depressive [...] 12-23-19 Chronic Other aftercare (5 sources) Other long term care administrator (current) drug therapy; Translations: [OTH PROGRAM MANAGER 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 PLANNING CURRENT DRUG THERAPY] Onset: 05-01-20 Episodic Other [...] registered nurse (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; Translations: [PROGRAM MANAGER 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 PLANNING CURRENT USE OF ASPIRIN] Onset: 05-01-2022 Episodic Other aftercare (1 source) long-term (current) use of antithrombotics/ant iplatelets; Translations: [PROGRAM MANAGER 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 PLANNING ANTITHROMBOT/ANTIPL ATLETS] Onset: 03-16-2022 Episodic Other circulatory [...] patient again. She has no VM. Normal [facility] 36on 01-29-2024 36 Regarding lab result s from 01/07/2024: MD Kika Becerra MA Blood work is ok, follow up as planned in 6 months. Tried to contact patient but no VM. Will try again tomorrow. Normal [facility] Office Visiton 01-07-2024 Follow-up visit [id number] Covert,Lise Easton 1955 F Date Provider Department Center 01/07/2024 JER LARRY MARC Kirk Family History Problem Relation Age of Onset Stroke Father Stroke Father's Sister Coronary artery disease Paternal Grandmother Family Status - Relation Status Age at Father Father's Sister Paternal Grandmother Level of Service:84592 MS OFFICE/OUTPATIENT ESTABLISHED MOD MDM 30 MIN Normal [facility] Consent for Procedure/Surger yon 11-12-2023 Consent for Procedure/Surgery [id number] [facility] Patient Educationon 11-09-19 24 Patient Education [...] including vitamins, herbs, eye drops, creams, and rsus-wxi-sefxjle medicines. ? Any problems you or family [...] tells you to take them. ? Taking cqss-bqc-jqogysn medicines, vitamins, herbs, and supplements. General instructions [...] these instructions at home: Medicines ? Take zoiy-fei-dvdsbbz and prescription medicines only as told by [...] to prevent or treat constipation: ? Take jfgj-kwq-vzlsjqw or prescription medicines. ? Eat foods that [...] You pa (more content not included)... Normal [facility] Urology Office/Clinic Noteon 11-09-2023 Urology Office/Clinic [...] Tight The Urethra was dilated to: 20-32 [place] with sounds. Specimens Removed: None Postoperative Information [...] Contact Information KEVIN SALDIVAR, Ihsan Wild, [address] [place] [address]- Additional Instructions: 6 mos w/ IO UD [...] Vitamin D3 (more content not included)... Normal [facility] Comment on above: Result Comment: Elec tronically Signed By: Ihsan BROWN MD\.br\Date and Time Signed: 11/09/23 12:24 EDT\.br\Electronically Co-Signed By: Amanda Camara.br\Date and Time Co-Signed: 11/09/23 12:14 EDT 36on 09-03-2023 36 Home health informed and script sent Normal [facility] Orders Onlyon 08-30-2023 Orders Only [id number] Covert,Lise Easton 1955 F Date Provider Department Center 08/30/2023 Keri-RUSH HARLEY MARC Kirk Family History Problem Relation Age of Onset Stroke Father Stroke Father's Sister Coronary artery disease Paternal Grandmother Family Status - Relation Status Age at Father Father's Sister Paternal Grandmother Normal [facility] Office Visiton 06-27-2023 Follow-up visit [id number] Covert,Lise Easton 1955 F Date Provider Department Center 06/27/2023 Andrew-JER NEFF MARC [facility] Family History Problem Relation Age of Onset Stroke Father Stroke Father's Sister Coronary artery disease Paternal Grandmother Family Status - Relation Status Age at Father Father's Sister Paternal Grandmother Level of Service:28317 MS OFFICE/OUTPATIENT ESTABLISHED LOW MDM 20 MIN Normal [facility] 30on 06-06-2023 30 The patient is Moderately [...] symptoms for stability, deterioration, or improvement Normal [facility] BASIC METABOLIC PANELon 05-10 Anion gap [Moles/Vol] 9 mmol/L Normal 7-20 [facility] Comment on above: Performed By: #### L [id number] #### [facility] (BEAKER) [address] [place] [address] Calcium [Mass/Vol] 8.3 mg/dL Low 8.6-10.3 [facility] Comment on above: Performed By: #### L [id number] #### [facility] ([facility]) [address] [place] [address] Chloride [Moles/Vol] 99 mmol/L Normal 98-107 [facility] Comment on above: Performed By: #### L [id number] #### [facility] ([facility]) [address] [place] [address] CO2 [Moles/Vol] 26 mmol/L Normal 21-31 [facility] Comment on above: Performed By: #### L [id number] #### [facility] ([facility]) [address] [place] [address] Creatinine [Mass/Vol] 0.72 mg/dL Normal 0.60-1.20 [facility] Comment on above: Performed By: #### L [id number] #### [facility] ([facility]) [address] [place] [address] GLOMERULAR FILTRATION RATE ML/MIN/1.73 SQ M.PREDICTED 92.2 mL/min/1.73m*2 Normal >60.0 [facility] Comment on above: Result Comment: The [facility]???s estimated glomerular filtration rate (eGFR) will no [...] individuals. Performed By: #### L [id number] #### [facility] ([facility]) [address] [place] [address] Glucose [Mass/Vol] 107 mg/dL High 70-100 [facility] Comment on above: Performed By: #### L [id number] #### [facility] (BEAKER) [address] [place] [address] Potassium [Moles/Vol] 3.9 mmol/L Normal 3.5-5.1 [facility] Comment on above: Performed By: #### L [id number] #### [facility] (BEAKER) [address] [place] [address] Sodium [Moles/Vol] 130 mmol/L Low 136-145 [facility] Comment on above: Performed By: #### L [id number] #### [facility] (BEAKER) [address] [place] [address] Urea nitrogen [Mass/Vol] 12 mg/dL Normal 7-25 [facility] Comment on above: Performed By: #### L [id number] #### [facility] ([facility]) [address] [place] [address] UREA NITROGEN/CREATININE (MASS RATIO) IN SER/PLAS 16.7 Normal [facility] Comment on above: Performed By: #### L [id number] #### [facility] ([facility]) [address] [place] [address] CBCon 06-06-2023 Erythrocyte distribution width (RBC) [Ratio] 13.4 % Normal 11.5-15.0 [facility] Comment on above: Performed By: #### L [id number] #### [facility] (BEAKER) [address] [place] [address] ERYTHROCYTE MEAN CORPUSCULAR HEMOGLOBIN CONCENTRATION (G/DL) BY AUTOMATED 33.4 g/dL Normal 32.0-35.0 [facility] Comment on above: Performed By: #### L [id number] #### [facility] (BEAKER) [address] [place] [address] Hematocrit (Bld) [Volume fraction] 28.7 % Low 36.0-48.0 [facility] Comment on above: Performed By: #### L [id number] #### [facility] (BEAKER) [address] [place] [address] Hemoglobin (Bld) [Mass/Vol] 9.6 g/dL Low 12.0-15.0 [facility] Comment on above: Performed By: #### L [id number] #### [facility] ([facility]) [address] [place] [address] MCH (RBC) [Entitic mass] 28.2 pg Normal 27.0-33.0 [facility] Comment on above: Performed By: #### L [id number] #### [facility] ([facility]) [address] [place] [address] MCV (RBC) [Entitic vol] 84.4 fL Normal 82.0-98.0 [facility] Comment on above: Performed By: #### L [id number] #### [facility] ([facility]) [address] [place] [address] PLATELETS (10*3/UL) IN BLOOD AUTOMATED COUNT 522 10*3/uL High 150-400 [facility] Comment on above: Performed By: #### L [id number] #### [facility] ([facility]) [address] [place] [address] RBC (Bld) [#/Vol] 3.40 10*6/uL Low 3.80-5.00 [facility] Comment on above: Performed By: #### L [id number] #### [facility] (BEAKER) [address] [place] [address] WBC (Bld) [#/Vol] 10.31 10*3/uL Normal 4.00-10.60 [facility] Comment on above: Performed By: #### L [id number] #### [facility] ([facility]) [address] [place] [address] Letter (Out)on 06-06-2023 Letter (Out) [id number] Covert,Lise Easton 1955 F Date Provider Department Center 06/06/2023 [id number], GENERIC PRO*INIT None Family History Problem Relation Age of Onset Stroke Father Stroke Father's Sister Coronary artery disease Paternal Grandmother Family Status - Relation Status Age at Father Father's Sister Paternal Grandmother Normal [facility] MAGNESIUMon 06-06-2023 Magnesium [Mass/Vol] 1.9 mg/dL Normal 1.9-2.7 [facility] Comment on above: Performed By: #### L [id number] #### [facility] ([facility]) [address] [place] [address] 30on 06-05-2023 30 The patient is Moderately Stable - Low risk of patient condition declining or worsening The patient's goals for the shift include comfort The clinical goals for the shift include stable vitals Normal [facility] 30 Daily Case Managemen t Update Multidisciplinary rounds have been completed. Barriers to Discharge: Transfer from [place] for chest pain and NSTEMI. TTE ordered. Pending cardio rec. Trop was .06 down to .04. +UTI and Pneumonia. Continue IV Rocephin. Urine and blood cultures pending. Patient is from home with [facility] 02 Diet: Dietary Orders (From [...] your name here: DANIEL GUERIN 06/05/23 1508 [facility] 30 The patient is Moderately Unstable - Medium risk of patient condition declining or worsening The patient's goals for the shift include comfort The clinical goals for the shift include vss Over the shift, the patient did not make progress toward the following goals. Barriers to progression include . Recommendations to address these barriers include . Normal [facility] 30 The patient is Moderately Stable - [...] injury: Assess patient frequently for physical needs [place] fall precautions as indicated by assessment Identify [...] and prevent overall improvement and discharge Normal [facility] ANTI-XA (HEPARIN LEVEL)on HEPARIN UNFRACTIONATED (U/ML) IN PPP BY CHROMOGENIC METHOD <0.10 Invalid Interpretation Code 0.3-0.7 [facility] Comment on above: Order Comment: Check anti-Xa level every 6 hours while on heparin infusion, or per protocol. Result Comment: [place] roxaban and Apixaban will interfere with the anti Xa assay used to monitor UFH and LMWH. Performed By: #### L [id number] #### [facility] ([employer]) [address] [place] [address] HEPARIN UNFRACTIONATED (U/ML) IN PPP BY CHROMOGENIC METHOD <0.10 Invalid Interpretation Code 0.3-0.7 [facility] Comment on above: Order Comment: Check anti-Xa level every 6 hours while on heparin infusion, or per protocol. Result Comment: [place] roxaban and Apixaban will interfere with the anti Xa assay used to monitor UFH and LMWH. Performed By: #### L [id number] #### [facility] ([employer]) [address] [place] [address] APTTon 06-05-2023 ACTIVATED PARTIAL THROMBOPLASTIN TIME IN PPP BY COAGULATION ASSAY 38.8 Seconds High 25.0-35.0 [facility] Comment on above: Result Comment: Clin ical significance of the APTT is questionable in the presence of heparin. Performed By: #### L [id number] #### [facility] ([employer]) [address] [place] [address] B-TYPE NATRIURETIC PEPTIDEon 06-05-2023 Natriuretic peptide B (Bld) [Mass/Vol] 136 pg/mL High 0-100 [facility] Comment on above: Performed By: #### L [id number] #### [facility] ([employer]) [address] [place] [address] BLOOD CULTUREon 06-05-2023 Bacteria identified Cx Nom (Bld) No growth at 5 days Normal [facility] Comment on above: Performed By: #### L [id number] ####[facility] ([facility])[address] [place] [address] Order Comment: From a different site than #1. CBC WITH AUTO DIFFERENTIALon 06-05-2023 Basophils (Bld) [#/Vol] 0.05 10*3/uL Normal 0.00-0.20 [facility] Comment on above: Performed By: #### L [id number] #### [facility] ([facility]) [address] [place] [address] Basophils/100 WBC (Bld) 0.3 % Normal 0.0-1.0 [facility] Comment on above: Performed By: #### L [id number] #### [facility] ([facility]) [address] [place] [address] Eosinophils (Bld) [#/Vol] 0.02 10*3/uL Normal 0.00-0.50 [facility] Comment on above: Performed By: #### L [id number] #### [facility] (BEAKER) [address] [place] [address] Eosinophils/100 WBC (Bld) 0.1 % Normal 0.0-6.0 [facility] Comment on above: Performed By: #### L [id number] #### [facility] ([facility]) [address] [place] [address] Erythrocyte distribution width (RBC) [Ratio] 13.3 % Normal 11.5-15.0 [facility] Comment on above: Performed By: #### L [id number] #### [facility] (BEAKER) [address] [place] [address] ERYTHROCYTE MEAN CORPUSCULAR HEMOGLOBIN CONCENTRATION (G/DL) BY AUTOMATED 32.4 g/dL Normal 32.0-35.0 [facility] Comment on above: Performed By: #### L [id number] #### [facility] ([facility]) [address] [place] [address] Hematocrit (Bld) [Volume fraction] 35.8 % Low 36.0-48.0 [facility] Comment on above: Performed By: #### L [id number] #### [facility] ([facility]) [address] [place] [address] Hemoglobin (Bld) [Mass/Vol] 11.6 g/dL Low 12.0-15.0 [facility] Comment on above: Performed By: #### L [id number] #### [facility] ([facility]) [address] [place] [address] Immature granulocytes (Bld) [#/Vol] 0.17 10*3/uL Normal 0.00-0.20 [facility] Comment on above: Performed By: #### L [id number] #### [facility] ([facility]) [address] [place] [address] Immature granulocytes/100 WBC (Bld) 1.0 % Normal 0.0-1.0 [facility] Comment on above: Performed By: #### L [id number] #### [facility] ([facility]) [address] [place] [address] Lymphocytes (Bld) [#/Vol] 0.80 10*3/uL Low 1.20-4.00 [facility] Comment on above: Performed By: #### L [id number] #### [facility] ([facility]) [address] [place] [address] Lymphocytes/100 WBC (Bld) 4.6 % Low 20.0-45.0 [facility] Comment on above: Performed By: #### L [id number] #### [facility] ([facility]) [address] [place] [address] MCH (RBC) [Entitic mass] 28.3 pg Normal 27.0-33.0 [facility] Comment on above: Performed By: #### L [id number] #### [facility] (BEAKER) [address] [place] [address] MCV (RBC) [Entitic vol] 87.3 fL Normal 82.0-98.0 [facility] Comment on above: Performed By: #### L [id number] #### [facility] ([facility]) [address] [place] [address] Monocytes (Bld) [#/Vol] 0.78 10*3/uL Normal 0.10-1.00 [facility] Comment on above: Performed By: #### L [id number] #### [facility] ([facility]) [address] [place] [address] Monocytes/100 WBC (Bld) 4.5 % Low 5.0-12.0 [facility] Comment on above: Performed By: #### L [id number] #### [facility] ([facility]) [address] [place] [address] Neutrophils (Bld) [#/Vol] 15.46 10*3/uL High 1.60-7.60 [facility] Comment on above: Performed By: #### L [id number] #### [facility] ([facility]) [address] [place] [address] Neutrophils/100 WBC (Bld) 89.5 % High 40.0-72.0 [facility] Comment on above: Performed By: #### L [id number] #### [facility] ([facility]) [address] [place] [address] NRBC (PER 100 WBCS) BY AUTOMATED COUNT 0.0 % Normal 0 [facility] Comment on above: Performed By: #### L [id number] #### [facility] ([facility]) [address] [place] [address] PLATELETS (10*3/UL) IN BLOOD AUTOMATED COUNT 517 10*3/uL High 150-400 [facility] Comment on above: Performed By: #### L [id number] #### [facility] ([facility]) [address] [place] [address] RBC (Bld) [#/Vol] 4.10 10*6/uL Normal 3.80-5.00 [facility] Comment on above: Performed By: #### L [id number] #### [facility] ([facility]) [address] [place] [address] WBC (Bld) [#/Vol] 17.28 10*3/uL High 4.00-10.60 [facility] Comment on above: Performed By: #### L [id number] #### [facility] ([facility]) [address] [place] [address] COMPREHENSIVE METABOLIC PANE [place] 06-05-2023 ALANINE AMINOTRANSFERASE (SGPT) (U/L) IN SER/PLAS <3 Low 7-52 [facility] Comment on above: Performed By: #### L [id number] #### [facility] ([facility]) [address] [place] [address] Albumin [Mass/Vol] 3.1 g/dL Low 3.5-5.7 [facility] Comment on above: Performed By: #### L [id number] #### [facility] (BEAKER) [address] [place] [address] ALP [Catalytic activity/Vol] 83 U/L Normal 34-104 [facility] Comment on above: Performed By: #### L [id number] #### [facility] (BEAKER) [address] [place] [address] Anion gap [Moles/Vol] 13 mmol/L Normal 7-20 [facility] Comment on above: Performed By: #### L [id number] #### [facility] (BEAKER) [address] [place] [address] AST [Catalytic activity/Vol] 14 U/L Normal 13-39 [facility] Comment on above: Performed By: #### L [id number] #### [facility] (BEAKER) [address] [place] [address] Bilirubin [Mass/Vol] 0.3 mg/dL Normal 0.3-1.0 [facility] Comment on above: Performed By: #### L [id number] #### [facility] ([facility]) [address] [place] [address] Calcium [Mass/Vol] 8.9 mg/dL Normal 8.6-10.3 [facility] Comment on above: Performed By: #### L [id number] #### [facility] ([facility]) [address] [place] [address] Chloride [Moles/Vol] 98 mmol/L Normal 98-107 [facility] Comment on above: Performed By: #### L [id number] #### [facility] ([facility]) [address] [place] [address] CO2 [Moles/Vol] 25 mmol/L Normal 21-31 [facility] Comment on above: Performed By: #### L [id number] #### [facility] ([facility]) [address] [place] [address] Creatinine [Mass/Vol] 0.96 mg/dL Normal 0.60-1.20 [facility] Comment on above: Performed By: #### L [id number] #### [facility] ([facility]) [address] [place] [address] GLOMERULAR FILTRATION RATE ML/MIN/1.73 SQ M.PREDICTED 65.3 mL/min/1.73m*2 Normal >60.0 [facility] Comment on above: Result Comment: The [facility]???s estimated glomerular filtration rate (eGFR) will no [...] individuals. Performed By: #### L [id number] #### [facility] ([facility]) [address] [place] [address] Glucose [Mass/Vol] 93 mg/dL Normal 70-100 [facility] Comment on above: Performed By: #### L [id number] #### [facility] ([facility]) [address] [place] [place] [address] Potassium [Moles/Vol] 3.3 mmol/L Low 3.5-5.1 [facility] Comment on above: Performed By: #### L [id number] #### [facility] ([facility]) [address] [place] [address] Protein [Mass/Vol] 5.7 g/dL Low 6.0-8.3 [facility] Comment on above: Performed By: #### L [id number] #### [facility] ([facility]) [address] [place] [address] Sodium [Moles/Vol] 133 mmol/L Low 136-145 [facility] Comment on above: Performed By: #### L [id number] #### [facility] ([facility]) [address] [place] [address] Urea nitrogen [Mass/Vol] 12 mg/dL Normal 7-25 [facility] Comment on above: Performed By: #### L [id number] #### [facility] ([facility]) [address] [place] [address] UREA NITROGEN/CREATININE (MASS RATIO) IN SER/PLAS 12.5 Normal [facility] Comment on above: Performed By: #### L [id number] #### [facility] ([facility]) [address] [place] [address] CONSULTon 06-05-2023 CONSULT - Attestation signed by [...] Nausea / Vomiting and Urinary symptoms to [facility], there she was found to have UTI, labs showed WBC of 17 and she was started on IV antibiotics, work up also showed high sensitive troponin of 62, She doesn't report any chest pain, or discomfort. She was started on heparin drip and was transferred here to [facility]. Today she reports no chest [...] bilaterally. NEURO: (more content not included)... Normal [facility] ETHANOLon 06-05-2023 ETHANOL (MG/DL) IN SER/PLAS <10 Normal [facility] Comment on above: Performed By: #### L [id number] #### [facility] ([facility]) [address] [place] [address] ETHANOL CALCULATED (%) Normal [facility] Comment on above: Performed By: #### L [id number] #### [facility] ([employer]) [address] [place] [address] HEMOGLOBIN A1Con 06-05-2023 Glucose [Mass/Vol] 160 mg/dL Normal [facility] Comment on above: Performed By: #### L [id number] ####[facility] ([employer])[address] [place] [address] HbA1c (Bld) [Mass fraction] 7.2 % High 4.0-6.0 [facility] Comment on above: Performed By: #### L [id number] ####[facility] ([facility])[address] [place] [address] LACTIC ACID WITH 4 HOUR REFL EXon 06-05-2023 LACTATE (MMOL/L) IN SER/PLAS 1.1 mmol/L Normal 0.5-2.2 [facility] Comment on above: Performed By: #### L [id number] #### [facility] ([facility]) [address] [place] [address] LEGIONELLA ANTIGEN, URINEon 06-05-2023 LEGIONELLA AG, UR Negative Normal NEG [facility] Comment on above: Result Comment: L. p neumophila serogroup 1 antigen not detected. A negative result does not exclude infection with Leginella pnemophila serogroup 1 nor does it rule out other microbial-caused respiratory infections of disease caused by other serogroups of Legionella pneumophila. Test Performed by [facility] [address] [place] [address] - Released 06/05/2023 12:36 Performed By: #### L [id number] #### [facility] [address] [place] [address] LIPID PANELon 06-05-2023 CHOL/HDL 1.6 mg/dL Normal [facility] Comment on above: Performed By: #### L [id number] #### [facility] ([facility]) [address] [place] [address] Cholesterol [Mass/Vol] 74 mg/dL Low 120-200 [facility] Comment on above: Performed By: #### L [id number] #### [facility] ([facility]) [address] [place] [address] Magnesium [Mass/Vol] 65 mg/dL Normal 40-149 [facility] Comment on above: Result Comment: TRIG LYCERIDE REFERENCE RANGE: 20 YEARS AND OLDER CARDIOVASCULAR RISK LESS THAN 150 mg/dL LOW RISK 150 TO 199 mg/dL BORDERLINE RISK 200 mg/dL AND GREATER HIGH RISK Performed By: #### L [id number] #### [facility] ([facility]) [address] [place] [address] Magnesium [Mass/Vol] 14 mg/dL Normal 0-160 [facility] Comment on above: Performed By: #### L [id number] #### [facility] ([facility]) [address] [place] [address] Magnesium [Mass/Vol] 47 mg/dL Normal 23-92 [facility] Comment on above: Performed By: #### L [id number] #### [facility] ([facility]) [address] [place] [address] NON HDL CHOL. (LDL+VLDL) 27 Normal [facility] Comment on above: Performed By: #### L [id number] #### [facility] ([facility]) [address] [place] [address] TOTAL VLDL-C 13 mg/dL Normal 0-40 [facility] Comment on above: Performed By: #### L [id number] #### [facility] ([facility]) [address] [place] [address] MAGNESIUMon 06-05-2023 Magnesium [Mass/Vol] 1.1 mg/dL Low 1.9-2.7 [facility] Comment on above: Performed By: #### L [id number] #### [facility] ([facility]) [address] [place] [address] PHOSPHORUSon 06-05-2023 Magnesium [Mass/Vol] 2.8 mg/dL Normal 2.5-5.0 [facility] Comment on above: Performed By: #### L [id number] #### [facility] ([facility]) [address] [place] [address] PROTIME-INRon 06-05-2023 INR IN PPP BY COAGULATION ASSAY 1.25 High 0.90-1.10 [facility] Comment on above: Result Comment: ACCC P [...] 1995;[id number]. Performed By: #### L [id number] #### [facility] [address] [place] [address] PROTHROMBIN TIME (PT) IN PPP BY COAGULATION ASSAY 15.7 Seconds High 12.3-14.8 [facility] Comment on above: Performed By: #### L [id number] #### [facility] [address] [place] [address] TOXICOLOGY PANEL URINEon AMPHETAMINE+METHAMPHE TAMINE SCREEN (PRESENCE) IN URINE Negative Normal Negative [facility] Comment on above: Performed By: #### L [id number] ####[facility] [place] [address] BARBITURATES PRESENCE IN URINE BY SCREEN METHOD Negative Normal Negative [facility] Comment on above: Performed By: #### L [id number] ####[facility] [place] [address] Benzodiazepines Ql (U) Negative Normal Negative [facility] Comment on above: Performed By: #### L [id number] ####[facility] [place] [address] CANNABINOID (PRESENCE) IN URINE BY SCREEN METHOD Negative Normal Negative [facility] Comment on above: Performed By: #### L [id number] ####[facility] [facility] [place] [address] Cocaine Ql (U) Negative Normal Negative [facility] Comment on above: Performed By: #### L [id number] ####[facility] [place] [address] METHADONE (PRESENCE) IN URINE BY SCREEN METHOD Negative Normal Negative [facility] Comment on above: Performed By: #### L [id number] ####[facility] [facility] [place] [address] OPIATES (PRESENCE) IN URINE BY SCREEN METHOD Positive Abnormal Negative [facility] Comment on above: Performed By: #### L [id number] ####[facility] [facility] [place] [address] PHENCYCLIDINE PRESENCE IN URINE BY SCREEN METHOD Negative Normal Negative [facility] Comment on above: Performed By: #### L [id number] ####[facility] ([facility])[address] [facility] [place] [address] Propoxyphene Screen Ql (U) Negative Normal Negative [facility] Comment on above: Performed By: #### L [id number] ####[facility] ([facility])[address] [facility] [place] [address] TRICYCLIC ANTIDEPRESSANTS (PRESENCE) IN URINE Negative Normal Negative [facility] Comment on above: Performed By: #### L [id number] ####[facility] ([facility])[address] [facility] [place] [address] TROPONIN Ion 06-05-2023 Troponin I.cardiac [Mass/Vol] 0.04 ng/mL Normal 0.00-0.04 [facility] Comment on above: Performed By: #### L [id number] #### [facility] ([facility]) [address] [place] [address] Troponin I.cardiac [Mass/Vol] 0.06 ng/mL High 0.00-0.04 [facility] Comment on above: Performed By: #### L [id number] ####[facility] ([facility])[address] [place] [address] TSH3 REFLEX TO FT4on 023 THYROTROPIN (MIU/L) IN SER/PLAS BY DETECTION LIMIT <= 0.05 MIU/L 1.46 mIU/L Normal 0.34-5.60 [facility] Comment on above: Performed By: #### L [id number] ####[facility] ([facility] [place] [address] URINALYSIS MICROSCOPIC WITH REFLEX CULTUREon 06-05-2023 CASTS IN URINE Normal [facility] Comment on above: Performed By: #### L [id number] ####[facility] ([facility])[address] [place] [address] CRYSTALS IN URINE Normal [facility] Comment on above: Performed By: #### L [id number] ####[facility] ([facility])[address] [place] [address] OTHER MICROSCOPIC ELEMENTS Normal [facility] Comment on above: Performed By: #### L [id number] ####[facility] ([facility])[address] [place] [address] RBC (#/HPF) IN URINE SEDIMENT 6-10 Abnormal None Seen [facility] Comment on above: Performed By: #### L [id number] ####[facility] ([facility] [place] [address] SQUAMOUS EPITHELIAL CELLS (#/HPF) IN URINE SEDIMENT Many Abnormal None Seen, Occasional [facility] Comment on above: Performed By: #### L [id number] ####[facility] ([facility])[address] [place] [address] WBC (LEUKOCYTE) (#/HPF) IN URINE SEDIMENT >100 Abnormal None Seen [facility] Comment on above: Performed By: #### L [id number] ####[facility] ([facility] [place] [address] URINALYSIS WITH REFLEX CULTU REon 06-05-2023 BILIRUBIN, TOTAL PRESENCE IN URINE Negative Normal Negative [facility] Comment on above: Performed By: #### L [id number] ####[facility] ([facility] [place] [address] Clarity (U) Clear Normal Clear [facility] Comment on above: Performed By: #### L [id number] ####[facility] ([facility])[address] [place] [address] Color (U) Yellow Normal Yellow [facility] Comment on above: Performed By: #### L [id number] ####[facility] ([facility])[address] [place] [address] Glucose (U) [Mass/Vol] Negative Normal Negative [facility] Comment on above: Performed By: #### L [id number] ####[facility] ([facility])[address] [place] [address] HEMOGLOBIN PRESENCE IN URINE Moderate Abnormal Negative [facility] Comment on above: Performed By: #### L [id number] ####[facility] ([facility])[address] [place] [address] Ketones Ql (U) Trace Abnormal Negative [facility] Comment on above: Performed By: #### L [id number] ####[facility] ([facility])[address] [place] [address] LEUKOCYTE ESTERASE PRESENCE IN URINE BY TEST STRIP Large Abnormal Negative [facility] Comment on above: Performed By: #### L [id number] ####[facility] ([facility] [place] [address] NITRITE PRESENCE IN URINE Positive Abnormal Negative [facility] Comment on above: Performed By: #### L [id number] ####[facility] ([facility])[address] [place] [address] pH (U) 6.0 [pH] Normal 5.0-8.0 [facility] Comment on above: Performed By: #### L [id number] ####[facility] ([facility] [place] [address] Protein (U) [Mass/Vol] 30 mg/dL Abnormal Negative [facility] Comment on above: Performed By: #### L [id number] ####[facility] ([facility])[address] [place] [address] Specific gravity (U) [Rel density] 1.012 Low 1.015-1.020 [facility] Comment on above: Performed By: #### L [id number] ####[facility] ([facility])[address] [place] [address] 30on 06-04-2023 30 The patient is Moderately Stable - Low risk of patient condition declining or worsening The patient's goals for the shift include comfort The clinical goals for the shift include VSS Normal [facility] Consent for Procedure/Surger yon 04-17-2023 Consent for Procedure/Surgery [id number] Normal [facility] Patient Educationon 04-16-20 Patient Education Urology [...] including vitamins, herbs, eye drops, creams, and aqqz-gog-qwmdhxy medicines. ? Any problems you or family [...] tells you to take them. ? Taking pnms-rtx-ppprpcg medicines, vitamins, herbs, and supplements. General instructions [...] these instructions at home: Medicines ? Take yjxv-bxs-geaigre and prescription medicines only as told by [...] to prevent or treat constipation: ? Take ancw-gfc-sptnymd or prescription medicines. ? Eat foods that [...] You pa (more content not included)... Normal [facility] Urology Office/Clinic Noteon 04-16-2023 Urology Office/Clinic [...] inflamed The Urethra was dilated to: 20-30 Chadian with sounds. Specimens Removed: None Postoperative Information [...] [facility] [address] [place] [address]- Additional Instructions: w/UD Patient Education Urethral Dilation [...] Procedure/Surgical Histo (more content not included)... Normal [facility] Comment on above: Result Comment: Elec [...] by: MIGUE REYNOSO Date: 2022-10-31 17:34 Normal [facility] HEMOGLOBINon 10-31-2022 Hemoglobin (Bld) [Mass/Vol] 11.8 g/dL Critically low 12.0-16.0 [facility] Comment on above: Performed By: #### C [id number] #### [facility] [address] [place] [address] Dr. Kayley Hatfield BUNon 10-10-2022 Urea nitrogen [Mass/Vol] 13.0 mg/dL Normal 7.0-18.0 [facility] Comment on above: Performed By: #### L DH #### [facility] [address] [place] [address] Dr. Kayley Hatfield CALCIUMon 10-10-2022 Calcium [Mass/Vol] 9.7 mg/dL Normal 8.5-10.1 [facility] Comment on above: Performed By: #### L DH #### [facility] [address] [place] [address] Dr. Kayley Hatfield CREATININEon 10-10-2022 Creatinine [Mass/Vol] 1.19 mg/dL Critically high 0.55-1.02 [facility] Comment on above: Performed By: #### L DH #### [facility] [address] [place] [address] Dr. Kayley Hatfield EGFR-AF BRAZILIAN 55 mL/min/1.73m2 Critically low >=60 [facility] Comment on above: Performed By: #### L DH #### [facility] [address] [place] [address] Dr. Kayley Hatfield EGFR-NON AF BRAZILIAN 46 mL/min/1.73m2 Critically low >=60 [facility] Comment on above: Performed By: #### L DH #### [facility] [address] [place] [address] Dr. Kayley Hatfield CRPon 10-10-2022 CRP [Mass/Vol] mg/L Normal <=1.0 [facility] Comment on above: Performed By: #### L DH #### [facility] [address] [place] [address] Dr. Kayley Hatfield MAGNESIUMon 10-10-2022 Magnesium [Mass/Vol] 1.7 mg/dL Critically low 1.8-2.4 [facility] Comment on above: Performed By: #### L DH #### [facility] [address] [place] [address] Dr. Kayley Hatfield PHOSPHORUSon 10-10-2022 Phosphate [Mass/Vol] 4.0 mg/dL Normal 2.6-4.7 [facility] Comment on above: Performed By: #### L DH #### [facility] [address] [place] [address] Dr. Kayley Hatfield SED RATE WESTERGRENon 2022 SED RATE 25 mm/hr Normal <=30 [facility] Comment on above: Performed By: #### P RTELEC #### [facility] [address] [place] [address] Dr. Kayley Hatfield CBC AUTO DIFFon 05-01-2022 BASO # 0.1 103/ul Normal 0.0-0.1 [facility] Comment on above: Performed By: #### P RBC #### [facility] [address] [place] [address] Dr. Kayley Hatfield Basophils/100 WBC (Bld) 0.5 % Normal 0.2-2.0 [facility] Comment on above: Performed By: #### P RBC #### [facility] [address] [address] [address] Kayley Hatfield EO # 0.2 103/ul Normal 0.0-0.7 [facility] Comment on above: Performed By: #### P RBC #### [facility] [address] [address] [address] Kayley Hatfield Eosinophils/100 WBC (Bld) 1.2 % Normal 0.9-7.0 [facility] Comment on above: Performed By: #### P RBC #### [facility] [address] [address] [address] Kayley Hatfield Erythrocyte distribution width (RBC) [Ratio] 14.9 % Normal 11.0-15.0 [facility] Comment on above: Performed By: #### P RBC #### [facility] [address] [place] [address] Dr. Kayley Hatfield Hematocrit (Bld) [Volume fraction] 34.2 % Critically low 36.0-48.0 [facility] Comment on above: Performed By: #### P RBC #### [facility] [address] [address] [address] Kayley Hatfield Hemoglobin (Bld) [Mass/Vol] 10.3 g/dL Critically low 12.0-16.0 [facility] Comment on above: Performed By: #### P RBC #### [facility] [address] [address] [address] Kayley Hatfield IG # 0.19 10e3/ul Critically high 0.00-0.03 [facility] Comment on above: Performed By: #### P RBC #### [facility] [address] [address] [address] Kayley Hatfield IG % 1.3 % Critically high 0.0-0.5 [facility] Comment on above: Performed By: #### P RBC #### [facility] [address] [address] [address] Kayley Hatfield LYMPH # 1.1 103/ul Critically low 1.2-3.8 [facility] Comment on above: Performed By: #### P RBC #### [facility] [address] [place] [address] Dr. Kayley Hatfield Lymphocytes/100 WBC (Bld) 7.3 % Critically low 20.5-60.0 [facility] Comment on above: Performed By: #### P RBC #### [facility] [address] [place] [address] Dr. Kayley Hatfield MANUAL DIFF REQ NO Normal [facility] Comment on above: Performed By: #### P RBC #### [facility] [address] [place] [address] Dr. Kayley Hatfield MCH (RBC) [Entitic mass] 28.4 pg Normal 26.7-34.0 [facility] Comment on above: Performed By: #### P RBC #### [facility] [address] [place] [address] Dr. Kayley Hatfield MCHC (RBC) [Mass/Vol] 30.1 g/dL Normal 29.9-35.2 [facility] Comment on above: Performed By: #### P RBC #### [facility] [address] [place] [address] Dr. Kayley Hatfield MCV (RBC) [Entitic vol] 94.2 fL Normal 81.0-99.0 [facility] Comment on above: Performed By: #### P RBC #### [facility] [address] [place] [address] Dr. Kayley Hatfield MONO # 0.6 103/ul Normal 0.3-0.8 [facility] Comment on above: Performed By: #### P RBC #### [facility] [address] [place] [address] Dr. Kayley Hatfield Monocytes/100 WBC (Bld) 4.0 % Normal 1.7-12.0 [facility] Comment on above: Performed By: #### P RBC #### [facility] [address] [place] [address] Dr. Kayley Hatfield NEUT # 12.5 103/ul Critically high 1.4-6.5 [facility] Comment on above: Performed By: #### P RBC #### [facility] [address] [address] [address] Kayley Hatfield Neutrophils/100 WBC (Bld) 85.7 % Critically high 43.0-75.0 [facility] Comment on above: Performed By: #### P RBC #### [facility] [address] [address] [address] Kayley Hatfield Platelet mean volume (Bld) [Entitic vol] 8.5 fL Critically low 9.5-13.5 [facility] Comment on above: Performed By: #### P RBC #### [facility] [address] [address] [address] Kayley Hatfield PLT 574 103/ul Critically high 150-450 [facility] Comment on above: Performed By: #### P RBC #### [facility] [address] [place] [address] Dr. Kayley Hatfield RBC 3.63 106/ul Critically low 4.20-5.40 [facility] Comment on above: Performed By: #### P RBC #### [facility] [address] [address] [address] Kayley Hatfield WBC 14.6 103/ul Critically high 4.0-11.0 [facility] Comment on above: Performed By: #### P RBC #### [facility] [facility] [address] [place] [address] Dr. Kayley Hatfield MAGNESIUMon 05-01-2022 Magnesium [Mass/Vol] 2.1 mg/dL Normal 1.8-2.4 [facility] Comment on above: Performed By: #### O BSCRN #### [facility] [address] [address] [address] Kayley Hatfield PROF CHEM 8 (BAS METB)on Anion gap [Moles/Vol] 8.6 mmol/L Normal [facility] Comment on above: Performed By: #### O BSCRN #### [facility] [address] [place] [address] Dr. Kayley Hatfield Calcium [Mass/Vol] 9.0 mg/dL Normal 8.5-10.1 [facility] Comment on above: Performed By: #### O BSCRN #### [facility] [address] [address] [address] Kayley Hatfield Chloride [Moles/Vol] 101 mmol/L Normal 98-107 [facility] Comment on above: Performed By: #### O BSCRN #### [facility] [address] [address] [address] Kayley Hatfield CO2 [Moles/Vol] 33.0 mmol/L Critically high 21.0-32.0 [facility] Comment on above: Performed By: #### O BSCRN #### [facility] [address] [address] [address] Kayley Hatfield Creatinine [Mass/Vol] 0.94 mg/dL Normal 0.55-1.02 [facility] Comment on above: Performed By: #### O BSCRN #### [facility] [address] [address] [address] Kayley Hatfield EGFR-AF BRAZILIAN >60 Normal >=60 [facility] Comment on above: Performed By: #### O BSCRN #### [facility] [address] [address] [address] Kayley Hatfield EGFR-NON AF BRAZILIAN >60 Normal >=60 [facility] Comment on above: Performed By: #### O BSCRN #### [facility] [address] [address] [address] Kayley Hatfield Glucose [Mass/Vol] 143 mg/dL Critically high 74-106 [facility] Comment on above: Performed By: #### O BSCRN #### [facility] [address] [address] [address] Kayley Hatfield Potassium [Moles/Vol] 4.6 mmol/L Normal 3.5-5.1 [facility] Comment on above: Performed By: #### O BSCRN #### [facility] [address] [address] [address] Kayley Hatfield Sodium [Moles/Vol] 138 mmol/L Normal 136-145 [facility] Comment on above: Performed By: #### O BSCRN #### [facility] [address] [address] [address] Kayley Hatfield Urea nitrogen [Mass/Vol] 15.0 mg/dL Normal 7.0-18.0 [facility] Comment on above: Performed By: #### O BSCRN #### [facility] [address] [place] [address] Dr. Kayley Hatfield Urea nitrogen/Creatinine [Mass ratio] 16.0 mg/mg Normal [facility] Comment on above: Performed By: #### O BSCRN #### [facility] [address] [place] [address] Dr. Kayley Hatfield CBC AUTO DIFFon 04-26-2022 BASO # 0.1 103/ul Normal 0.0-0.1 [facility] Comment on above: Performed By: #### P RBC #### [facility] [address] [place] [address] Dr. Kayley Hatfield Basophils/100 WBC (Bld) 0.5 % Normal 0.2-2.0 [facility] Comment on above: Performed By: #### P RBC #### [facility] [address] [place] [address] Dr. Kayley Hatfield EO # 0.2 103/ul Normal 0.0-0.7 [facility] Comment on above: Performed By: #### P RBC #### [facility] [address] [place] [address] Dr. Kayley Hatfield Eosinophils/100 WBC (Bld) 1.8 % Normal 0.9-7.0 [facility] Comment on above: Performed By: #### P RBC #### [facility] [address] [place] [address] Dr. Kayley Hatfield Erythrocyte distribution width (RBC) [Ratio] 14.7 % Normal 11.0-15.0 [facility] Comment on above: Performed By: #### P RBC #### [facility] [address] [place] [address] Dr. Kayley Hatfield Hematocrit (Bld) [Volume fraction] 32.0 % Critically low 36.0-48.0 [facility] Comment on above: Performed By: #### P RBC #### [facility] [address] [address] [address] Kayley Hatfield Hemoglobin (Bld) [Mass/Vol] 9.9 g/dL Critically low 12.0-16.0 [facility] Comment on above: Performed By: #### P RBC #### [facility] [address] [address] [address] Kayley Hatfield IG # 0.07 10e3/ul Critically high 0.00-0.03 [facility] Comment on above: Performed By: #### P RBC #### [facility] [address] [address] [address] Kayley Hatfield IG % 0.6 % Critically high 0.0-0.5 [facility] Comment on above: Performed By: #### P RBC #### [facility] [address] [address] [address] Kayley Hatfield LYMPH # 1.2 103/ul Normal 1.2-3.8 [facility] Comment on above: Performed By: #### P RBC #### [facility] [address] [address] [address] Kayley Hatfield Lymphocytes/100 WBC (Bld) 10.9 % Critically low 20.5-60.0 [facility] Comment on above: Performed By: #### P RBC #### [facility] [address] [address] [address] Kayley Hatfield MANUAL DIFF REQ NO Normal [facility] Comment on above: Performed By: #### P RBC #### [facility] [address] [address] [address] Kayley Hatfield MCH (RBC) [Entitic mass] 28.4 pg Normal 26.7-34.0 [facility] Comment on above: Performed By: #### P RBC #### [facility] [address] [address] [address] Kayley Hatfield MCHC (RBC) [Mass/Vol] 30.9 g/dL Normal 29.9-35.2 [facility] Comment on above: Performed By: #### P RBC #### [facility] [address] [address] [address] Kayley Hatfield MCV (RBC) [Entitic vol] 92.0 fL Normal 81.0-99.0 [facility] Comment on above: Performed By: #### P RBC #### [facility] [address] [address] [address] Kayley Hatfield MONO # 1.4 103/ul Critically high 0.3-0.8 [facility] Comment on above: Performed By: #### P RBC #### [facility] [address] [address] [address] Kayley Hatfield Monocytes/100 WBC (Bld) 11.9 % Normal 1.7-12.0 [facility] Comment on above: Performed By: #### P RBC #### [facility] [address] [address] [address] Kayley Hatfield NEUT # 8.4 103/ul Critically high 1.4-6.5 [facility] Comment on above: Performed By: #### P RBC #### [facility] [address] [address] [address] Kayley Hatfield Neutrophils/100 WBC (Bld) 74.3 % Normal 43.0-75.0 [facility] Comment on above: Performed By: #### P RBC #### [facility] [address] [address] [address] Kayley Hatfield Platelet mean volume (Bld) [Entitic vol] 8.8 fL Critically low 9.5-13.5 [facility] Comment on above: Performed By: #### P RBC #### [facility] [address] [address] [address] Kayley Hatfield PLT 953 103/ul Critically high 150-450 [facility] Comment on above: Performed By: #### P RBC #### [facility] [address] [address] [address] Kayley Hatfield RBC 3.48 106/ul Critically low 4.20-5.40 [facility] Comment on above: Performed By: #### P RBC #### [facility] [address] [address] [address] Kayley Hatfield WBC 11.3 103/ul Critically high 4.0-11.0 [facility] Comment on above: Performed By: #### P RBC #### [facility] [address] [address] [address] Kayley Hatfield POINT OF CARE GLUCOSEon 04-08 Glucose [Mass/Vol] 225 mg/dL Critically high 74-106 [facility] Comment on above: Performed By: #### B [id number] #### [facility] [address] [address] [address] Kayley Hatfield PROF CHEM 8 (BAS METB)on Anion gap [Moles/Vol] 10.7 mmol/L Normal [facility] Comment on above: Performed By: #### P RBC #### [facility] [address] [place] [address] Dr. Kayley Hatfield Calcium [Mass/Vol] 9.2 mg/dL Normal 8.5-10.1 [facility] Comment on above: Performed By: #### P RBC #### [facility] [address] [place] [address] Dr. Kayley Hatfield Chloride [Moles/Vol] 103 mmol/L Normal 98-107 [facility] Comment on above: Performed By: #### P RBC #### [facility] [address] [place] [address] Dr. Kayley Hatfield CO2 [Moles/Vol] 29.2 mmol/L Normal 21.0-32.0 [facility] Comment on above: Performed By: #### P RBC #### [facility] [address] [place] [address] Dr. Kayley Hatfield Creatinine [Mass/Vol] 0.85 mg/dL Normal 0.55-1.02 [facility] Comment on above: Performed By: #### P RBC #### [facility] [address] [place] [address] Dr. Kayley Hatfield EGFR-AF BRAZILIAN >60 Normal >=60 [facility] Comment on above: Performed By: #### P RBC #### [facility] [address] [address] [address] Kayley Hatfield EGFR-NON AF BRAZILIAN >60 Normal >=60 [facility] Comment on above: Performed By: #### P RBC #### [facility] [address] [address] [address] Kayley Hatfield Glucose [Mass/Vol] 81 mg/dL Normal 74-106 [facility] Comment on above: Performed By: #### P RBC #### [facility] [address] [address] [address] Kayley Hatfield Potassium [Moles/Vol] 3.9 mmol/L Normal 3.5-5.1 [facility] Comment on above: Performed By: #### P RBC #### [facility] [address] [address] [address] Kayley Hatfield Sodium [Moles/Vol] 139 mmol/L Normal 136-145 [facility] Comment on above: Performed By: #### P RBC #### [facility] [address] [address] [address] Kayley Hatfield Urea nitrogen [Mass/Vol] 9.0 mg/dL Normal 7.0-18.0 [facility] Comment on above: Performed By: #### P RBC #### [facility] [address] [address] [address] Kayley Hatfield Urea nitrogen/Creatinine [Mass ratio] 10.6 mg/mg Normal [facility] Comment on above: Performed By: #### P RBC #### [facility] [address] [address] [address] Kayley Hatfield XR CHEST 2 Von [...] MIGUE REYNOSO Date: 2022-04-26 09:59 Normal [facility] BNPon 04-25-2022 Natriuretic peptide B (Bld) [Mass/Vol] 234.0 pg/mL Normal <=900.0 [facility] Comment on above: Performed By: #### P RTELEC #### [facility] [address] [place] [address] Dr. Kayley Hatfield CBC AUTO DIFFon 04-25-2022 BASO # 0.1 103/ul Normal 0.0-0.1 [facility] Comment on above: Performed By: #### P RBC #### [facility] [address] [place] [address] Dr. Kayley Hatfield Basophils/100 WBC (Bld) 0.4 % Normal 0.2-2.0 [facility] Comment on above: Performed By: #### P RBC #### [facility] [address] [place] [address] Dr. Kayley Hatfield EO # 0.2 103/ul Normal 0.0-0.7 [facility] Comment on above: Performed By: #### P RBC #### [facility] [address] [place] [address] Dr. Kayley Hatfield Eosinophils/100 WBC (Bld) 1.0 % Normal 0.9-7.0 [facility] Comment on above: Performed By: #### P RBC #### [facility] [address] [place] [address] Dr. Kayley Hatfield Erythrocyte distribution width (RBC) [Ratio] 14.8 % Normal 11.0-15.0 [facility] Comment on above: Performed By: #### P RBC #### [facility] [address] [address] [address] Kayley Hatfield Hematocrit (Bld) [Volume fraction] 35.4 % Critically low 36.0-48.0 [facility] Comment on above: Performed By: #### P RBC #### [facility] [address] [address] [address] Kayley Hatfield Hemoglobin (Bld) [Mass/Vol] 10.9 g/dL Critically low 12.0-16.0 [facility] Comment on above: Performed By: #### P RBC #### [facility] [address] [address] [address] Kayley Hatfield IG # 0.08 10e3/ul Critically high 0.00-0.03 [facility] Comment on above: Performed By: #### P RBC #### [facility] [address] [place] [address] Dr. Kayley Hatfield IG % 0.5 % Normal 0.0-0.5 [facility] Comment on above: Performed By: #### P RBC #### [facility] [address] [place] [address] Dr. Kayley Hatfield LYMPH # 1.2 103/ul Normal 1.2-3.8 [facility] Comment on above: Performed By: #### P RBC #### [facility] [address] [place] [address] Dr. Kayley Hatfield Lymphocytes/100 WBC (Bld) 7.4 % Critically low 20.5-60.0 [facility] Comment on above: Performed By: #### P RBC #### [facility] [address] [place] [address] Dr. Kayley Hatfield MANUAL DIFF REQ NO Normal [facility] Comment on above: Performed By: #### P RBC #### [facility] [address] [place] [address] Dr. Kayley Hatfield MCH (RBC) [Entitic mass] 27.9 pg Normal 26.7-34.0 [facility] Comment on above: Performed By: #### P RBC #### [facility] [address] [place] [address] Dr. Kayley Hatfield MCHC (RBC) [Mass/Vol] 30.8 g/dL Normal 29.9-35.2 [facility] Comment on above: Performed By: #### P RBC #### [facility] [address] [address] [address] Kayley Hatfield MCV (RBC) [Entitic vol] 90.5 fL Normal 81.0-99.0 [facility] Comment on above: Performed By: #### P RBC #### [facility] [address] [address] [address] Kayley Hatfield MONO # 1.5 103/ul Critically high 0.3-0.8 [facility] Comment on above: Performed By: #### P RBC #### [facility] [address] [address] [address] Kayley Hatfield Monocytes/100 WBC (Bld) 8.7 % Normal 1.7-12.0 [facility] Comment on above: Performed By: #### P RBC #### [facility] [address] [address] [address] Kayley Hatfield NEUT # 13.8 103/ul Critically high 1.4-6.5 [facility] Comment on above: Performed By: #### P RBC #### [facility] [address] [address] [address] Kayley Hatfield Neutrophils/100 WBC (Bld) 82.0 % Critically high 43.0-75.0 [facility] Comment on above: Performed By: #### P RBC #### [facility] [address] [address] [address] Kayley Hatfield Platelet mean volume (Bld) [Entitic vol] 8.9 fL Critically low 9.5-13.5 [facility] Comment on above: Performed By: #### P RBC #### [facility] [address] [address] [address] Kayley Hatfield PLT 1076 103/ul Critically high 150-450 [facility] Comment on above: Performed By: #### P RBC #### [facility] [address] [address] [address] Kayley Hatfield RBC 3.91 106/ul Critically low 4.20-5.40 [facility] Comment on above: Performed By: #### P RBC #### [facility] [address] [place], [place] [address] Dr. Kayley Hatfield WBC 16.8 103/ul Critically high 4.0-11.0 [facility] Comment on above: Performed By: #### P RBC #### [facility] [id number] Kayley Hatfield CT HEAD WO CONon [...] MIGUE REYNOSO Date: 2022-04-25 14:59 Normal [facility] CTA CHEST WO W CONon 022 [...] MIGUE REYNOSO Date: 2022-04-25 15:18 Normal [facility] Covid-19 PCR (CVDTB)on 04-08 SARS-CoV-2 (COVID-19) RNA ELBA+probe Ql (Unsp spec) Not detected Normal NOT DETECTED [facility] Comment on above: Result [...] for this test is supported by the [place] of [employer] and Human Service's declaration that [...] used). Performed By: #### C VDTBH #### [facility] [address] [place] [address] Dr. Kayley Hatfield ER URINE PROFILEon 2 Bilirubin Ql (U) Negative Normal NEGATIVE [facility] Comment on above: Performed By: #### C VDTBH #### [facility] [address] [place] [address] Dr. Kayley Hatfield Clarity (U) CLEAR Normal CLEAR [facility] Comment on above: Performed By: #### C VDTBH #### [facility] [address] [place] [address] Dr. Kayley Hatfield Color (U) LT. YELLOW Normal YELLOW [facility] Comment on above: Performed By: #### C VDTBH #### [facility] [address] [place] [address] Dr. Kayley [place] A micrscopic examination will be performed if indicated. Normal [facility] Comment on above: Performed By: #### C VDTBH #### [facility] [address] [place] [address] Dr. Kayley Hatfield Glucose Ql (U) Negative Normal NEGATIVE [facility] Comment on above: Performed By: #### C VDTBH #### [facility] [address] [place] [address] Dr. Kayley Hatfield Hemoglobin Ql (U) TRACE-INTACT Abnormal NEGATIVE [facility] Comment on above: Performed By: #### C VDTBH #### [facility] [address] [place] [address] Dr. Kayley Hatfield Ketones Ql (U) Negative Normal NEGATIVE [facility] Comment on above: Performed By: #### C VDTBH #### [facility] [address] [place] [address] Dr. Kayley Hatfield LEUKOCYTES Negative Normal NEGATIVE [facility] Comment on above: Performed By: #### C VDTBH #### [facility] [address] [place] [address] Dr. Kayley Hatfield Nitrite Ql (U) Negative Normal NEGATIVE [facility] Comment on above: Performed By: #### C VDTBH #### [facility] [address] [place] [address] Dr. Kayley Hatfield pH (U) 8.0 [pH] Normal 5-9 [facility] Comment on above: Performed By: #### C VDTBH #### [facility] [address] [place] [address] Dr. Kayley Hatfield SPEC GRAVITY 1.010 Normal 1.005-<=1.025 [facility] Comment on above: Performed By: #### C VDTBH #### [facility] [address] [place] [address] Dr. Kayley Hatfield UA PROTEIN Negative Normal NEGATIVE/ TRACE [facility] Comment on above: Performed By: #### C VDTBH #### [facility] [address] [place] [address] Dr. Kayley Hatfield UR MICRO IND INDICATED Normal [facility] Comment on above: Performed By: #### C VDTBH #### [facility] [address] [place] [address] Dr. Kayley Hatfield Urobilinogen Qn (U) 0.2 {Ul'U}/dL Normal 0.2 - 1. 0 [facility] Comment on above: Performed By: #### C VDTBH #### [facility] [address] [place] [address] Dr. Kayley Hatfield LACTATE/LACTIC ACIDon 2021 Lactate [Moles/Vol] 1.1 mmol/L Normal 0.4-1.9 [facility] Comment on above: Performed By: #### P RTELEC #### [facility] [address] [place] [address] Dr. Kayley Hatfield PH VENOUS BLOODon 04-25-2022 PCO2 VENOUS 54.5 mmHg Critically high 40.0-52.0 [facility] Comment on above: Performed By: #### L #### [facility] [address] [place] [address] Dr. Kayley Hatfield pH VENOUS 7.385 Normal 7.330-7.430 [facility] Comment on above: Performed By: #### L DH #### [facility] [address] [place] [address] Dr. Kayley Hatfield POINT OF CARE GLUCOSEon 04-08 Glucose [Mass/Vol] 91 mg/dL Normal 74-106 [facility] Comment on above: Performed By: #### O BSCRN #### [facility] [address] [place] [address] Dr. Kayley Hatfield Glucose [Mass/Vol] 116 mg/dL Critically high 74-106 [facility] Comment on above: Performed By: #### O BSCRN #### [facility] [address] [place] [address] Dr. Kayley Hatfield PROF 14(COMP METB)on 022 Albumin [Mass/Vol] 2.7 g/dL Critically low 3.4-5.0 [facility] Comment on above: Performed By: #### O BSCRN #### [facility] [address] [place] [address] Dr. Kayley Hatfield Albumin/Globulin [Mass ratio] 0.6 {ratio} Normal [facility] Comment on above: Performed By: #### O BSCRN #### [facility] [address] [place] [address] Dr. Kayley Hatfield ALP [Catalytic activity/Vol] 132 U/L Critically high 46-116 [facility] Comment on above: Performed By: #### O BSCRN #### [facility] [address] [place] [address] Dr. Kayley Hatfield ALT [Catalytic activity/Vol] 21 U/L Normal 14-59 [facility] Comment on above: Performed By: #### O BSCRN #### [facility] [address] [address] [address] Kayley Hatfield Anion gap [Moles/Vol] 8.1 mmol/L Normal [facility] Comment on above: Performed By: #### O BSCRN #### [facility] [address] [address] [address] Kayley Hatfield AST [Catalytic activity/Vol] 23 U/L Normal 15-37 [facility] Comment on above: Performed By: #### O BSCRN #### [facility] [address] [address] [address] Kayley Hatfield Bilirubin [Mass/Vol] 0.3 mg/dL Normal 0.2-1.0 [facility] Comment on above: Performed By: #### O BSCRN #### [facility] [address] [place] [address] Dr. Kayley Hatfield Calcium [Mass/Vol] 9.4 mg/dL Normal 8.5-10.1 [facility] Comment on above: Performed By: #### O BSCRN #### [facility] [address] [place] [address] Dr. Kayley Hatfield Chloride [Moles/Vol] 100 mmol/L Normal 98-107 [facility] Comment on above: Performed By: #### O BSCRN #### [facility] [address] [place] [address] Dr. Kayley Hatfield CO2 [Moles/Vol] 31.8 mmol/L Normal 21.0-32.0 [facility] Comment on above: Performed By: #### O BSCRN #### [facility] [facility] [address] [address] [address] Kayley Hatfield Creatinine [Mass/Vol] 0.79 mg/dL Normal 0.55-1.02 [facility] Comment on above: Performed By: #### O BSCRN #### [facility] [address] [address] [address] Kayley Hatfield EGFR-AF BRAZILIAN >60 Normal >=60 [facility] Comment on above: Performed By: #### O BSCRN #### [facility] [address] [address] [address] Kayley Hatfield EGFR-NON AF BRAZILIAN >60 Normal >=60 [facility] Comment on above: Performed By: #### O BSCRN #### [facility] [address] [address] [address] Kayley Hatfield Globulin (S) [Mass/Vol] 4.2 g/dL Normal [facility] Comment on above: Performed By: #### O BSCRN #### [facility] [address] [address] [address] Kayley Hatfield Glucose [Mass/Vol] 134 mg/dL Critically high 74-106 [facility] Comment on above: Performed By: #### O BSCRN #### [facility] [address] [place] [address] Dr. Kayley Hatfield Potassium [Moles/Vol] 3.9 mmol/L Normal 3.5-5.1 [facility] Comment on above: Performed By: #### O BSCRN #### [facility] [address] [address] [address] Kayley Hatfield Protein [Mass/Vol] 6.9 g/dL Normal 6.4-8.2 [facility] Comment on above: Performed By: #### O BSCRN #### [facility] [address] [place] [address] Dr. Kayley Hatfield Sodium [Moles/Vol] 136 mmol/L Normal 136-145 [facility] Comment on above: Performed By: #### O BSCRN #### [facility] [address] [address] [address] Kayley Hatfield Urea nitrogen [Mass/Vol] 10.0 mg/dL Normal 7.0-18.0 [facility] Comment on above: Performed By: #### O BSCRN #### [facility] [address] [place] [address] Dr. Kayley Hatfield Urea nitrogen/Creatinine [Mass ratio] 12.7 mg/mg Normal [facility] Comment on above: Performed By: #### O BSCRN #### [facility] [address] [place] [address] Dr. Kayley Hatfield PROTIMEon 04-25-2022 INR Coag (PPP) [Relative time] 1.08 {INR} Normal [facility] Comment on above: Performed By: #### P RTELEC #### [facility] [address] [place] [address] Dr. Kayley Hatfield INR GUIDELINES SEE BELOW Normal [facility] Comment on above: Result Comment: JOAQUIM RED INR: 2.0 - 3.0 CONDITIONS NOT LISTED BELOW 2.5 - 3.5 FOR PROSTHETIC HEART VALVE REPLACEMENT 2.5 - 3.5 RECURRENT THROMBOSIS Performed By: #### P RTELEC #### [facility] [address] [place] [address] Dr. Kayley Hatfield PT Coag (PPP) [Time] 11.6 s Normal 9.0-11.6 [facility] Comment on above: Performed By: #### P RTELEC #### [facility] [address] [place] [address] Dr. Kayley Hatfield PTTon 04-25-2022 aPTT Coag (Bld) [Time] 31.1 s Normal 22.3-36.2 [facility] Comment on above: Performed By: #### P RTELEC #### [facility] [address] [place] [address] Dr. Kayley Hatfield TROPONIN, HIGH SENSITIVITYon 04-25-2022 HSTROP 9.6 pg/mL Normal 4.0-51.3 [facility] Comment on above: Result Comment: CUT- OFF POINTS HAVE BEEN ESTABLISHED BASED ON THE FOURTH UNIVERSAL DEFINITIONS OF MYOCARDIAL INFARCTION. THE UPPER REFERENCE LIMIT (URL) OF TROPONIN, DEFINED THE 99TH PERCENTILE OF cTnI DISTRIBUTION IN A REFERENCE POPULATION, HAS BEEN CONFIRMED THE DECISION THRESHOLD FOR [place] DIAGNOSIS. Performed By: #### P RTELEC #### [facility] [address] [place] [address] Dr. Kayley Hatfield TSHon 04-25-2022 TSH 1.431 uIU/mL Normal 0.358-3.740 [facility] Comment on above: Performed By: #### P RTELEC #### [facility] [address] [place] [address] Dr. Kayley Hatfield URINE MICROSCOPIC ONLYon BACTERIA NONE SEEN Normal NONE SEEN [facility] Comment on above: Performed By: #### C VDTBH #### [facility] [address] [place] [address] Dr. Kayley Hatfield Bacteria identified Cx Nom (U) NOT INDICATED Normal [facility] Comment on above: Performed By: #### C VDTBH #### [facility] [address] [place] [address] Dr. Kayley Hatfield CAST NONE SEEN Normal NONE SEEN [facility] Comment on above: Performed By: #### C VDTBH #### [facility] [address] [place] [address] Dr. Kayley Hatfield Crystals LM Nom (Urine sed) NONE SEEN Normal NONE SEEN [facility] Comment on above: Performed By: #### C VDTBH #### [facility] [address] [place] [address] Dr. Kayley Hatfield Epithelial cells LM Ql (Urine sed) FEW Abnormal NONE SEEN /RARE [facility] Comment on above: Performed By: #### C VDTBH #### [facility] [address] [place] [address] Dr. Kayley Hatfield MUCOUS NONE SEEN Normal NONE SEEN [facility] Comment on above: Performed By: #### C VDTBH #### [facility] [address] [place] [address] Dr. Kayley Hatfield RBC 2-5 Abnormal 0-2 [facility] Comment on above: Performed By: #### C VDTBH #### [facility] [address] [place] [address] Dr. Kayley Hatfield WBC NONE SEEN Normal NONE SEEN [facility] Comment on above: Performed By: #### C VDTBH #### [facility] [address] [place] [address] Dr. Kayley Hatfield IMMUNOFIXATION(KENNETH),PROTEIN ELEC(PE),FREon 03-31-2022 Albumin [Mass/Vol] 3.6 g/dL Normal 2.9-4.4 [facility] Comment on above: Performed By: #### B LDCX1 #### [facility] [address] [place] [address] Dr. Kayley Hatfield Albumin/Globulin [Mass ratio] 1.6 {ratio} Normal 0.7-1.7 [facility] Comment on above: Performed By: #### B LDCX1 #### [facility] [address] [place] [address] Dr. Kayley Hatfield Edfvk-5-Cqtbodea 0.3 g/dL Normal 0.0-0.4 [facility] Comment on above: Performed By: #### B LDCX1 #### [facility] [address] [place] [address] Dr. Kayley Hatfield Udrfp-6-Tsjijhau 0.8 g/dL Normal 0.4-1.0 [facility] Comment on above: Performed By: #### B LDCX1 #### [facility] [address] [place] [address] Dr. Kayley Hatfield Beta Globulin 1.0 g/dL Normal 0.7-1.3 [facility] Comment on above: Performed By: #### B LDCX1 #### [facility] [address] [place] [address] Dr. Kayley Hatfield Free [place] Lt Chains,S 16.0 mg/L Normal 3.3-19.4 [facility] Comment on above: Performed By: #### B LDCX1 #### [facility] [address] [place] [address] Dr. Kayley Hatfield Free Lambda Lt Chains,S 10.1 mg/L Normal 5.7-26.3 [facility] Comment on above: Performed By: #### B LDCX1 #### [facility] [address] [place] [address] Dr. Kayley Hatfield Gamma Globulin 0.4 g/dL Normal 0.4-1.8 [facility] Comment on above: Performed By: #### B LDCX1 #### [facility] [address] [place] [address] Dr. Kayley Hatfield Globulin (S) [Mass/Vol] 2.4 g/dL Normal 2.2-3.9 [facility] Comment on above: Performed By: #### B LDCX1 #### [facility] [address] [place] [address] Dr. Kayley Hatfield Immunofixation Result, Serum Comment Normal [facility] Comment on above: Result Comment: No m onoclonality detected. Performed By: #### B LDCX1 #### [facility] [address] [address] [address] Kayley Hatfield Immunoglobulin A, Qn, Serum 128 mg/dL Normal 87-352 [facility] Comment on above: Performed By: #### B LDCX1 #### [facility] [address] [place] [address] Dr. Kayley Hatfield Immunoglobulin G, Qn, Serum 487 mg/dL Critically low 586-1602 [facility] Comment on above: Performed By: #### B LDCX1 #### [facility] [address] [place] [address] Dr. Kayley Hatfield Immunoglobulin M, Qn, Serum 38 mg/dL Normal 26-217 [facility] Comment on above: Performed By: #### B LDCX1 #### [facility] [address] [place] [address] Dr. Kayley Hatfield [place]/Lambda Ratio, S 1.58 Normal 0.26-1.65 [facility] Comment on above: Performed By: #### B LDCX1 #### [facility] [address] [address] [address] Kayley Hatfield M-Sandip Not Observed Normal Not Observed [facility] Comment on above: Performed By: #### B LDCX1 #### [facility] [address] [place] [address] Dr. Kayley Hatfield PDF . Normal [facility] Comment on above: Performed By: #### B LDCX1 #### [facility] [address] [place] [address] Dr. Kayley Hatfield Please note: Comment Normal [facility] Comment on above: Result Comment: Prot ein electrophoresis scan will follow via computer, mail, or marquetry worker delivery. Performed By: #### B LDCX1 #### [facility] [address] [place] [address] Dr. Kayley Hatfield Protein [Mass/Vol] 6.0 g/dL Normal 6.0-8.5 [facility] Comment on above: Performed By: #### B LDCX1 #### [facility] [address] [place] [address] Dr. Kayley Hatfield CBC AUTO DIFFon 03-30-2022 BASO # 0.1 103/ul Normal 0.0-0.1 [facility] Comment on above: Performed By: #### P RBC #### [facility] [address] [place] [address] Dr. Kayley Hatfield Basophils/100 WBC (Bld) 0.4 % Normal 0.2-2.0 [facility] Comment on above: Performed By: #### P RBC #### [facility] [address] [place] [address] Dr. Kayley Hatfield EO # 0.2 103/ul Normal 0.0-0.7 [facility] Comment on above: Performed By: #### P RBC #### [facility] [address] [place] [address] Dr. Kayley Hatfield Eosinophils/100 WBC (Bld) 1.1 % Normal 0.9-7.0 [facility] Comment on above: Performed By: #### P RBC #### [facility] [address] [place] [address] Dr. Kayley Hatfield Erythrocyte distribution width (RBC) [Ratio] 0.0 % Critically low 11.0-15.0 [facility] Comment on above: Performed By: #### P RBC #### [facility] [address] [place] [address] Dr. Kayley Hatfield Hematocrit (Bld) [Volume fraction] 24.0 % Critically low 36.0-48.0 [facility] Comment on above: Performed By: #### P RBC #### [facility] [address] [place] [address] Dr. Kayley Hatfield Hemoglobin (Bld) [Mass/Vol] 7.2 g/dL Critically low 12.0-16.0 [facility] Comment on above: Performed By: #### P RBC #### [facility] [address] [address] [address] Kayley Hatfield IG # 0.10 10e3/ul Critically high 0.00-0.03 [facility] Comment on above: Performed By: #### P RBC #### [facility] [address] [address] [address] Kayley Hatfield IG % 0.6 % Critically high 0.0-0.5 [facility] Comment on above: Performed By: #### P RBC #### [facility] [address] [place] [address] Dr. Kayley Hatfield LYMPH # 1.5 103/ul Normal 1.2-3.8 [facility] Comment on above: Performed By: #### P RBC #### [facility] [address] [place] [address] Dr. Kayley Hatfield Lymphocytes/100 WBC (Bld) 9.0 % Critically low 20.5-60.0 [facility] Comment on above: Performed By: #### P RBC #### [facility] [address] [place] [address] Dr. Kayley Hatfield MANUAL DIFF REQ NO Normal [facility] Comment on above: Performed By: #### P RBC #### [facility] [address] [place] [address] Dr. Kayley Hatfield MCH (RBC) [Entitic mass] 27.3 pg Normal 26.7-34.0 [facility] Comment on above: Performed By: #### P RBC #### [facility] [address] [place] [address] Dr. Kayley Hatfield MCHC (RBC) [Mass/Vol] 30.0 g/dL Normal 29.9-35.2 [facility] Comment on above: Performed By: #### P RBC #### [facility] [address] [place] [address] Dr. Kayley Hatfield MCV (RBC) [Entitic vol] 90.9 fL Normal 81.0-99.0 [facility] Comment on above: Performed By: #### P RBC #### [facility] [address] [address] [address] Kayley Hatfield MONO # 2.3 103/ul Critically high 0.3-0.8 [facility] Comment on above: Performed By: #### P RBC #### [facility] [address] [address] [address] Kayley Hatfield Monocytes/100 WBC (Bld) 13.8 % Critically high 1.7-12.0 [facility] Comment on above: Performed By: #### P RBC #### [facility] [address] [place] [address] Dr. Kayley Hatfield NEUT # 12.7 103/ul Critically high 1.4-6.5 [facility] Comment on above: Performed By: #### P RBC #### [facility] [address] [place] [address] Dr. Kayley Hatfield Neutrophils/100 WBC (Bld) 75.1 % Critically high 43.0-75.0 [facility] Comment on above: Performed By: #### P RBC #### [facility] [address] [place] [address] Dr. Kayley Hatfield Platelet mean volume (Bld) [Entitic vol] 8.9 fL Critically low 9.5-13.5 [facility] Comment on above: Performed By: #### P RBC #### [facility] [address] [place] [address] Dr. Kayley Hatfield PLT 782 103/ul Critically high 150-450 [facility] Comment on above: Performed By: #### P RBC #### [facility] [address] [place] [address] Dr. Kayley Hatfield RBC 2.64 106/ul Critically low 4.20-5.40 [facility] Comment on above: Performed By: #### P RBC #### [facility] [address] [place] [address] Dr. Kayley Hatfield WBC 16.9 103/ul Critically high 4.0-11.0 [facility] Comment on above: Performed By: #### P RBC #### [facility] [address] [place] [address] Dr. Kayley Hatfield PRBC LEUKOREDUCEDon 03-30-20 ABO and Rh group Nom (Bld) Cross Match Result Compatible Unit Blood Type O Pos Unit Number [id number] Status Information Transfused Product ID Red Blood Cells Product Code [id number] Cross Match Result Compatible Unit Blood Type O Pos Unit Number [id number] Status Information Transfused Product ID Red Blood Cells Product Code [id number] Normal [facility] Comment on above: Performed By: #### P RBC #### [facility] [address] [place] [address] Dr. Kayley Hatfield PROF CHEM 8 (BAS METB)on Anion gap [Moles/Vol] 6.9 mmol/L Normal [facility] Comment on above: Performed By: #### P RBC #### [facility] [address] [place] [address] Dr. Kayley Hatfield Calcium [Mass/Vol] 8.7 mg/dL Normal 8.5-10.1 [facility] Comment on above: Performed By: #### P RBC #### [facility] [address] [place] [address] Dr. Kayely Hatfield Chloride [Moles/Vol] 101 mmol/L Normal 98-107 [facility] Comment on above: Performed By: #### P RBC #### [facility] [address] [place] [address] Dr. Kayley Hatfield CO2 [Moles/Vol] 33.3 mmol/L Critically high 21.0-32.0 [facility] Comment on above: Performed By: #### P RBC #### [facility] [address] [place] [address] Dr. Kayley Hatfield Creatinine [Mass/Vol] 0.83 mg/dL Normal 0.55-1.02 [facility] Comment on above: Performed By: #### P RBC #### [facility] [address] [place] [address] Dr. Kayley Hatfield EGFR-AF BRAZILIAN >60 Normal >=60 [facility] Comment on above: Performed By: #### P RBC #### [facility] [address] [address] [address] Kayley Hatfield EGFR-NON AF BRAZILIAN >60 Normal >=60 [facility] Comment on above: Performed By: #### P RBC #### [facility] [address] [address] [address] Kayley Hatfield Glucose [Mass/Vol] 94 mg/dL Normal 74-106 [facility] Comment on above: Performed By: #### P RBC #### [facility] [address] [address] [address] aKyley Hatfield Potassium [Moles/Vol] 4.2 mmol/L Normal 3.5-5.1 [facility] Comment on above: Performed By: #### P RBC #### [facility] [address] [address] [address] Kayley Hatfield Sodium [Moles/Vol] 137 mmol/L Normal 136-145 [facility] Comment on above: Performed By: #### P RBC #### [facility] [address] [address] [address] Kayley Hatfield Urea nitrogen [Mass/Vol] 15.0 mg/dL Normal 7.0-18.0 [facility] Comment on above: Performed By: #### P RBC #### [facility] [address] [address] [address] Kayley Hatfield Urea nitrogen/Creatinine [Mass ratio] 18.1 mg/mg Normal [facility] Comment on above: Performed By: #### P RBC #### [facility] [address] [address] [address] Kayley Hatfield PROTEIN ELECTROPHERESISon Albumin [Mass/Vol] 3.4 g/dL Normal 2.9-4.4 [facility] Comment on above: Performed By: #### P RTELEC #### [facility] [address] [address] [address] Kayley Hatfield Albumin/Globulin [Mass ratio] 1.3 {ratio} Normal 0.7-1.7 [facility] Comment on above: Performed By: #### P RTELEC #### [facility] [address] [place] [address] Dr. Kayley Hatfield Fgavc-8-Kdxgzqhl 0.3 g/dL Normal 0.0-0.4 [facility] Comment on above: Performed By: #### P RTELEC #### [facility] [address] [place] [address] Dr. Kayley Hatfield Vsrjb-4-Stwzeuxn 0.8 g/dL Normal 0.4-1.0 [facility] Comment on above: Performed By: #### P RTELEC #### [facility] [address] [place] [address] Dr. Kayley Hatfield Beta Globulin 1.0 g/dL Normal 0.7-1.3 [facility] Comment on above: Performed By: #### P RTELEC #### [facility] [address] [place] [address] Dr. Kayley Hatfield Gamma Globulin 0.5 g/dL Normal 0.4-1.8 [facility] Comment on above: Performed By: #### P RTELEC #### [facility] [address] [place] [address] Dr. Kayley Hatfield Globulin (S) [Mass/Vol] 2.6 g/dL Normal 2.2-3.9 [facility] Comment on above: Performed By: #### P RTELEC #### [facility] [address] [place] [address] Dr. Kayley Hatfield M-Sandip Not Observed Normal Not Observed [facility] Comment on above: Performed By: #### P RTELEC #### [facility] [address] [place] [address] Dr. Kayley Hatfield PDF . Normal [facility] Comment on above: Performed By: #### P RTELEC #### [facility] [address] [place] [address] Dr. Kayley Hatfield Please note: Comment Normal [facility] Comment on above: Result Comment: Prot ein electrophoresis scan will follow via computer, mail, or marquetry worker delivery. Performed By: #### P RTELEC #### [facility] [address] [address] [address] Kayley Hatfield Protein [Mass/Vol] 6.0 g/dL Normal 6.0-8.5 [facility] Comment on above: Performed By: #### P RTELEC #### [facility] [address] [address] [address] Kayley Hatfield XR CHEST 1 Von [...] TYSHAWN MOORE Date: 2022-03-30 06:17 Normal [facility] CBC W MANUAL DIFFon 03-29-20 22 ANISOCYTOSIS 2+ Normal [facility] Comment on above: Performed By: #### C VDTBH #### [facility] [address] [address] [address] Kayley Hatfield ATYPICAL LYMPH # Normal [facility] Comment on above: Performed By: #### C VDTBH #### [facility] [address] [address] [address] Kayley Hatfield ATYPICAL LYMPH % Normal [facility] Comment on above: Performed By: #### C VDTBH #### [facility] [address] [address] [address] Kayley Hatfield BAND # 0.0 103/ul Normal 0.0-0.3 [facility] Comment on above: Performed By: #### C VDTBH #### [facility] [address] [address] [address] Kayley Hatfield BAND % 0 % Normal 0-5 [facility] Comment on above: Performed By: #### C VDTBH #### [facility] [address] [address] [address] Kayley Hatfield BASOM # 0.59 103/ul Critically high 0.00-0.10 [facility] Comment on above: Performed By: #### C VDTBH #### [facility] [address] [address] [address] Kayley Hatfield BASOM % 3.0 % Critically high 0.2-2.0 [facility] Comment on above: Performed By: #### C VDTBH #### [facility] [address] [place] [address] Dr. Kayley Hatfield BLAST # Normal [facility] Comment on above: Performed By: #### C VDTBH #### [facility] [address] [place] [address] Dr. Kayley Hatfield BLAST % Normal [facility] Comment on above: Performed By: #### C VDTBH #### [facility] [address] [address] [address] Kayley Hatfield CORRECTED WBC Normal 4.0-11.0 [facility] Comment on above: Performed By: #### C VDTBH #### [facility] [address] [place] [address] Dr. Kayley Hatfield EOS # 0.40 103/ul Normal 0.00-0.70 [facility] Comment on above: Performed By: #### C VDTBH #### [facility] [address] [place] [address] Dr. Kayley Hatfield EOS% 2.0 % Normal 0.9-7.0 [facility] [facility] Comment on above: Performed By: #### C VDTBH #### [facility] [address] [place] [address] Dr. Kayley Hatfield HCT 31.1 % Critically low 36.0-48.0 [facility] Comment on above: Performed By: #### C VDTBH #### [facility] [address] [address] [address] Kayley Hatfield HGB 9.7 g/dl Critically low 12.0-16.0 [facility] Comment on above: Performed By: #### C VDTBH #### [facility] [address] [place] [address] Dr. Kayley Hatfield HYPOCHROMASIA 1+ Normal [facility] Comment on above: Performed By: #### C VDTBH #### [facility] [address] [address] [address] Kayley Hatfield LYMPHM # 4.75 103/ul Critically high 1.20-3.80 [facility] Comment on above: Performed By: #### C VDTBH #### [facility] [address] [place] [address] Dr. Kayley aHtfield LYMPHM% 24.0 % Normal 20.5-60.0 [facility] Comment on above: Performed By: #### C VDTBH #### [facility] [address] [place] [address] Dr. Kayley Hatfield MCH 27.0 pg Normal 26.7-34.0 [facility] Comment on above: Performed By: #### C VDTBH #### [facility] [address] [place] [address] Dr. Kayley Hatfield MCHC 31.2 g/dl Normal 29.9-35.2 [facility] Comment on above: Performed By: #### C VDTBH #### [facility] [address] [place] [address] Dr. Kayley Hatfield MCV 86.6 fL Normal 81.0-99.0 [facility] Comment on above: Performed By: #### C VDTBH #### [facility] [address] [place] [address] Dr. Kayley Hatfield METAMYELOCYTE # Normal [facility] Comment on above: Performed By: #### C VDTBH #### [facility] [address] [place] [address] Dr. Kayley Hatfield METAMYELOCYTE % Normal [facility] Comment on above: Performed By: #### C VDTBH #### [facility] [address] [place] [address] Dr. Kayley Hatfield MONOM# 0.59 103/ul Normal 0.30-0.80 [facility] Comment on above: Performed By: #### C VDTBH #### [facility] [address] [place] [address] Dr. Kayley Hatfield MONOM% 3.0 % Normal 1.7-12.0 [facility] Comment on above: Performed By: #### C VDTBH #### [facility] [address] [place] [address] Dr. Kayley Hatfield MPV 8.4 fL Critically low 9.5-13.5 [facility] Comment on above: Performed By: #### C VDTBH #### [facility] [address] [place] [address] Dr. Kayley Hatfield MYELOCYTE # Normal [facility] Comment on above: Performed By: #### C VDTBH #### [facility] [address] [place] [address] Dr. Kayley Hatfield MYELOCYTE % Normal [facility] Comment on above: Performed By: #### C VDTBH #### [facility] [address] [place] [address] Dr. Kayley Hatfield NRBC Normal [facility] Comment on above: Performed By: #### C VDTBH #### [facility] [address] [place] [address] Dr. Kayley Hatfield OVALOCYTES SLIGHT Normal [facility] Comment on above: Performed By: #### C VDTBH #### [facility] [address] [place] [address] Dr. Kayley Hatfield PLT 950 103/ul Critically high 150-450 [facility] Comment on above: Performed By: #### C VDTBH #### [facility] [address] [place] [address] Dr. Kayley Hatfield RBC 3.59 106/ul Critically low 4.20-5.40 [facility] Comment on above: Performed By: #### C VDTBH #### [facility] [address] [place] [address] Dr. Kayley Hatfield RDW 26.6 % Critically high 11.0-15.0 [facility] Comment on above: Performed By: #### C VDTBH #### [facility] [address] [address] [address] Kayley Hatfield SEG # 13.46 103/ul Critically high 1.40-6.50 [facility] Comment on above: Performed By: #### C VDTBH #### [facility] [address] [place] [address] Dr. Kayley Hatfield SEG % 68.0 % Normal 43.0-75.0 [facility] Comment on above: Performed By: #### C VDTBH #### [facility] [address] [place] [address] Dr. Kayley Hatfield WBC 19.8 103/ul Critically high 4.0-11.0 [facility] Comment on above: Performed By: #### C VDTBH #### [facility] [address] [place] [address] Dr. Kayley Hatfield PROF CHEM 8 (BAS METB)on Anion gap [Moles/Vol] 8.6 mmol/L Normal [facility] Comment on above: Performed By: #### L DH #### [facility] [address] [place] [address] Dr. Kayley Hatfield Calcium [Mass/Vol] 8.9 mg/dL Normal 8.5-10.1 [facility] Comment on above: Performed By: #### L DH #### [facility] [address] [place] [address] Dr. Kayley Hatfield Chloride [Moles/Vol] 102 mmol/L Normal 98-107 [facility] Comment on above: Performed By: #### L DH #### [facility] [address] [place] [address] Dr. Kayley Hatfield CO2 [Moles/Vol] 34.3 mmol/L Critically high 21.0-32.0 [facility] Comment on above: Performed By: #### L DH #### [facility] [address] [address] [address] Kayley Hatfield Creatinine [Mass/Vol] 0.86 mg/dL Normal 0.55-1.02 [facility] Comment on above: Performed By: #### L DH #### [facility] [address] [address] [address] Kayley Hatfield EGFR-AF BRAZILIAN >60 Normal >=60 [facility] Comment on above: Performed By: #### L DH #### [facility] [address] [place] [address] Dr. Kayley Hatfield EGFR-NON AF BRAZILIAN >60 Normal >=60 [facility] Comment on above: Performed By: #### L DH #### [facility] [address] [place] [address] Dr. Kayley Hatfield Glucose [Mass/Vol] 102 mg/dL Normal 74-106 [facility] Comment on above: Performed By: #### L DH #### [facility] [address] [place] [address] Dr. Kayley Hatfield Potassium [Moles/Vol] 3.9 mmol/L Normal 3.5-5.1 [facility] Comment on above: Performed By: #### L DH #### [facility] [address] [place] [address] Dr. Kayley Hatfield Sodium [Moles/Vol] 141 mmol/L Normal 136-145 [facility] Comment on above: Performed By: #### L DH #### [facility] [address] [address] [address] Kayley Hatfield Urea nitrogen [Mass/Vol] 20.0 mg/dL Critically high 7.0-18.0 [facility] Comment on above: Performed By: #### L DH #### [facility] [address] [place] [address] Dr. Kayley Hatfield Urea nitrogen/Creatinine [Mass ratio] 23.3 mg/mg Normal [facility] Comment on above: Performed By: #### L #### [facility] [address] [address] [address] Kayley Hatfield XR CHEST 1 Von [...] MIGUE REYNOSO Date: 2022-03-29 13:26 Normal [facility] XR CHEST 1 V EXAMINATION: [...] by: MIGUE REYNOSO Date: 2022-03-29 11:37 Normal [facility] XR CHEST 1 V EXAMINATION: XR [...] MIGUE REYNOSO Date: 2022-03-29 07:32 Normal [facility] XR CHEST 1 V EXAM: [...] ASAEL ANAND Date: 2022-03-28 22:40 Normal [facility] CBC W MANUAL DIFFon 03-28-20 22 ANISOCYTOSIS 3+ Normal [facility] Comment on above: Performed By: #### C ALONZO #### [facility] [address] [address] [address] Kayley Hatfield ATYPICAL LYMPH # Normal [facility] Comment on above: Performed By: #### C BCMAN #### [facility] [address] [address] [address] Kayley Hatfield ATYPICAL LYMPH % Normal [facility] Comment on above: Performed By: #### C BCMAN #### [facility] [address] [address] [address] Kayley Hatfield BAND # 0.3 103/ul Normal 0.0-0.3 [facility] Comment on above: Performed By: #### C BCMAN #### [facility] [address] [address] [address] Kayley Hatfield BAND % 2 % Normal 0-5 [facility] Comment on above: Performed By: #### C BCMAN #### [facility] [address] [address] [address] Kayley Hatfield BASOM # 0.00 103/ul Normal 0.00-0.10 [facility] Comment on above: Performed By: #### C BCMAN #### [facility] [address] [address] [address] Kayley Hatfield BASOM % 0.0 % Critically low 0.2-2.0 [facility] Comment on above: Performed By: #### C BCMAN #### [facility] [address] [address] [address] Kayley Hatfield BLAST # Normal [facility] Comment on above: Performed By: #### C BCKATHY #### [facility] [address] [address] [address] Kayley Hatfield BLAST % Normal [facility] Comment on above: Performed By: #### C ALONZO #### [facility] [address] [place] [address] Dr. Kayley Hatfield CORRECTED WBC Normal 4.0-11.0 [facility] Comment on above: Performed By: #### C ALONZO #### [facility] [address] [place] [address] Dr. Kayley Hatfield EOS # 0.00 103/ul Normal 0.00-0.70 [facility] Comment on above: Performed By: #### C ALONZO #### [facility] [address] [place] [address] Dr. Kayley Hatfield EOS% 0.0 % Critically low 0.9-7.0 [facility] Comment on above: Performed By: #### C BCKATHY #### [facility] [address] [place] [address] Dr. Kayley Hatfield HCT 23.6 % Critically low 36.0-48.0 [facility] Comment on above: Performed By: #### C BCKATHY #### [facility] [address] [place] [address] Dr. Kayley Hatfield HGB 6.8 g/dl Critically low 12.0-16.0 [facility] Comment on above: Performed By: #### C BCMAN #### [facility] [address] [address] [address] Kayley Hatfield HYPOCHROMASIA 3+ Normal [facility] Comment on above: Performed By: #### C ALONZO #### [facility] [address] [address] [address] Kayley Hatfield LYMPHM # 1.17 103/ul Critically low 1.20-3.80 [facility] Comment on above: Performed By: #### C ALONZO #### [facility] [address] [address] [address] Kayley Hatfield LYMPHM% 7.0 % Critically low 20.5-60.0 [facility] Comment on above: Performed By: #### C ALONZO #### [facility] [address] [place] [address] Dr. Kayley Hatfield MCH 24.6 pg Critically low 26.7-34.0 [facility] Comment on above: Performed By: #### C ALONZO #### [facility] [address] [place] [address] Dr. Kayley Hatfield MCHC 28.8 g/dl Critically low 29.9-35.2 [facility] Comment on above: Performed By: #### C ALONZO #### [facility] [address] [place] [address] Dr. Kayley Hatfield MCV 85.5 fL Normal 81.0-99.0 [facility] Comment on above: Performed By: #### Ryley ROSADO #### [facility] [address] [place] [address] Dr. Kayley Hatfield METAMYELOCYTE # Normal [facility] Comment on above: Performed By: #### C ALONZO #### [facility] [address] [place] [address] Dr. Kayley Hatfield METAMYELOCYTE % Normal [facility] Comment on above: Performed By: #### Ryley ROSADO #### [facility] [address] [address] [address] Kayley Hatfield MONOM# 0.50 103/ul Normal 0.30-0.80 [facility] Comment on above: Performed By: #### C ALONZO #### [facility] [address] [address] [address] Kaylye Hatfield MONOM% 3.0 % Normal 1.7-12.0 [facility] Comment on above: Performed By: #### C ALONZO #### [facility] [address] [address] [address] Kayley Hatfield MPV 8.6 fL Critically low 9.5-13.5 [facility] Comment on above: Performed By: #### C ALONZO #### [facility] [address] [address] [address] Kayley Hatfield MYELOCYTE # Normal [facility] Comment on above: Performed By: #### C ALONZO #### [facility] [address] [place] [address] Dr. Kayley Hatfield MYELOCYTE % Normal [facility] Comment on above: Performed By: #### C ALONZO #### [facility] [address] [place] [address] Dr. Kayley Hatfield NRBC Normal [facility] Comment on above: Performed By: #### C ALONZO #### [facility] [address] [place] [address] Dr. Kayley Hatfield OVALOCYTES SLIGHT Normal [facility] Comment on above: Performed By: #### C ALONZO #### [facility] [address] [address] [address] Kayley Hatfield PLT 1384 103/ul Critically high 150-450 [facility] Comment on above: Performed By: #### C ALONZO #### [facility] [address] [address] [address] Kayley Hatfield RBC 2.76 106/ul Critically low 4.20-5.40 [facility] Comment on above: Performed By: #### C ALONZO #### [facility] [address] [address] [address] Kayley Hatfield RDW 0.0 % Critically low 11.0-15.0 [facility] Comment on above: Performed By: #### C BCMAN #### [facility] [address] [address] [address] Kayley Hatfield SEG # 14.70 103/ul Critically high 1.40-6.50 [facility] Comment on above: Performed By: #### C BCMAN #### [facility] [address] [place], [place] [address] Dr. Kayley Hatfield SEG % 88.0 % Critically high 43.0-75.0 [facility] Comment on above: Performed By: #### C BCMAN #### [facility] [address] [address] [address] Kayley Hatfield WBC 16.7 103/ul Critically high 4.0-11.0 [facility] Comment on above: Performed By: #### C ABBYMAN #### [facility] [address] [address] [address] Kayley Hatfield CRPon 03-28-2022 CRP [Mass/Vol] mg/L Normal <=1.0 [facility] Comment on above: Performed By: #### H GBHCT #### [facility] [address] [address] [address] Kayley Hatfield [facility] SARS-CoV-2 (COVID-19) RNA ELBA+probe Ql (Unsp spec) Not detected Normal NOT DETECTED [facility] Comment on above: Result [...] for this test is supported by the [place] of Health and Human Service's declaration that [...] used). Performed By: #### P RBC #### [facility] [address] [place] [address] Dr. Kayley DOBSON URINE PROFILEon 2 Bilirubin Ql (U) Negative Normal NEGATIVE [facility] Comment on above: Performed By: #### P RBC #### [facility] [address] [place] [address] Dr. Kayley Hatfield Clarity (U) CLEAR Normal CLEAR [facility] Comment on above: Performed By: #### P RBC #### [facility] [address] [place] [address] Dr. Kayley Hatfield Color (U) LT. YELLOW Normal YELLOW [facility] Comment on above: Performed By: #### P RBC #### [facility] [address] [place] [address] Dr. Kayley [place] A micrscopic examination will be performed if indicated. Normal [facility] Comment on above: Performed By: #### P RBC #### [facility] [address] [place] [address] Dr. Kayley Hatfield Glucose Ql (U) Negative Normal NEGATIVE [facility] Comment on above: Performed By: #### P RBC #### [facility] [address] [place] [address] Dr. Kayley Hatfield Hemoglobin Ql (U) Negative Normal NEGATIVE [facility] Comment on above: Performed By: #### P RBC #### [facility] [address] [place] [address] Dr. Kayley Hatfield Ketones Ql (U) Negative Normal NEGATIVE [facility] Comment on above: Performed By: #### P RBC #### [facility] [address] [place] [address] Dr. Kayley Hatfield LEUKOCYTES Negative Normal NEGATIVE [facility] Comment on above: Performed By: #### P RBC #### [facility] [address] [place] [address] Dr. Kayley Hatfield Nitrite Ql (U) Negative Normal NEGATIVE [facility] Comment on above: Performed By: #### P RBC #### [facility] [address] [address] [address] Kayley Hatfield pH (U) 6.0 [pH] Normal 5-9 [facility] Comment on above: Performed By: #### P RBC #### [facility] [address] [address] [address] Kayley Hatfield SPEC GRAVITY <=1.005 Abnormal 1.005-<=1.025 [facility] Comment on above: Performed By: #### P RBC #### [facility] [address] [address] [address] Kayley Hatfield UA PROTEIN Negative Normal NEGATIVE/ TRACE [facility] Comment on above: Performed By: #### P RBC #### [facility] [address] [place] [address] Dr. Kayley Hatfield UR MICRO IND NOT INDICATED Normal [facility] Comment on above: Performed By: #### P RBC #### [facility] [address] [address] [address] Kayley Hatfield Urobilinogen Qn (U) 0.2 {Lu'U}/dL Normal 0.2 - 1. 0 [facility] Comment on above: Performed By: #### P RBC #### [facility] [address] [place] [address] Dr. Kayley Hatfield FERRITINon 03-28-2022 Ferritin [Mass/Vol] 61.0 ng/mL Normal 8.0-252.0 [facility] Comment on above: Performed By: #### P RBC #### [facility] [address] [address] [address] Kayley Hatfield GLYCOHEMOGLOBIN A1Con 2021 ADA RECOMMENDATION SEE BELOW Normal [facility] Comment on above: Result Comment: ADA RECOMMENDED LIMIT 4.0 - 6.0 ADA THERAPEUTIC TARGET < 7.0 ACTION SUGGESTED > 7.0 Performed By: #### P RBC #### [facility] [address] [address] [address] Kayley Hatfield Glucose [Mass/Vol] 114 mg/dL Normal [facility] Comment on above: Performed By: #### P RBC #### [facility] [address] [address] [address] Kayley Hatfield HbA1c (Bld) [Mass fraction] 5.6 % Normal 4.5-6.2 [facility] Comment on above: Performed By: #### P RBC #### [facility] [address] [address] [address] Kayley Hatfield IRONon 03-28-2022 Iron [Mass/Vol] 37.0 ug/dL Critically low 50.0-170.0 [facility] Comment on above: Performed By: #### P RBC #### [facility] [address] [place] [address] Dr. Kayley Hatfield LDHon 03-28-2022 LDH 174 U/L Normal 81-234 [facility] Comment on above: Performed By: #### L DH #### [facility] [address] [place] [address] Dr. Kayley Hatfield LIPID PROFILEon 03-28-2022 CHOL-HDL RATIO NORM SEE BELOW Normal [facility] Comment on above: Result Comment: 3.3 - 4.4 LOW RISK 4.4 - 7.1 AVERAGE RISK 7.1 - 11.0 MODERATE RISK >11.0 HIGH RISK Performed By: #### P RBC #### [facility] [address] [place] [address] Dr. Kayley Hatfield Cholesterol [Mass/Vol] 193 mg/dL Normal <=200 [facility] Comment on above: Performed By: #### P RBC #### [facility] [address] [place] [address] Dr. Kayley Hatfield Cholesterol in HDL [Mass/Vol] 95 mg/dL Critically high 40-60 [facility] Comment on above: Performed By: #### P RBC #### [facility] [address] [place] [address] Dr. Kayley Hatfield Cholesterol in LDL [Mass/Vol] 74.8 mg/dL Normal [facility] Comment on above: Performed By: #### P RBC #### [facility] [address] [place] [address] Dr. Kayley Hatfield Cholesterol.total/Cho lesterol in HDL [Mass ratio] 2.0 {ratio} Normal [facility] Comment on above: Performed By: #### P RBC #### [facility] [address] [address] [address] Kayley Hatfield HDL NORMAL > or = 60 mg/dl - LO W CARDIOVASCULAR RISK <40 mg/dl - HIGH CARDIOVASCULAR RISK Normal [facility] Comment on above: Performed By: #### P RBC #### [facility] [address] [address] [address] Kayley Hatfield LDL CALC NORMAL SEE BELOW Normal [facility] Comment on above: Result Comment: <100 mg/dl OPTIMAL 100 - 129 mg/dl NEAR OR ABOVE OPTIMAL 130 - 159 mg/dl BORDERLINE HIGH 160 - 189 mg/dl HIGH >190 mg/dl VERY HIGH Performed By: #### P RBC #### [facility] [address] [address] [address] Kayley Hatfield Triglyceride [Mass/Vol] 116 mg/dL Normal <=150 [facility] Comment on above: Performed By: #### P RBC #### [facility] [address] [address] [address] Kayley Hatfield VLDL CALC 23.2 mg/dL Normal [facility] Comment on above: Performed By: #### P RBC #### [facility] [address] [place] [address] Dr. Kayley Hatfield LIVER PROFILEon 03-28-2022 Albumin [Mass/Vol] 3.2 g/dL Critically low 3.4-5.[address] [facility] Comment on above: Performed By: #### P RBC #### [facility] [address] [address] [address] Kayley Hatfield Albumin/Globulin [Mass ratio] 1.0 {ratio} Normal [facility] Comment on above: Performed By: #### P RBC #### [facility] [address] [address] [address] Kayley Hatfield ALP [Catalytic activity/Vol] 56 U/L Normal 46-116 [facility] Comment on above: Performed By: #### P RBC #### [facility] [address] [address] [address] Kayley Hatfield ALT [Catalytic activity/Vol] 32 U/L Normal 14-59 [facility] Comment on above: Performed By: #### P RBC #### [facility] [address] [address] [address] Kayley Hatfield AST [Catalytic activity/Vol] 18 U/L Normal 15-37 [facility] Comment on above: Performed By: #### P RBC #### [facility] [address] [address] [address] Kayley Hatfield BILI, CONJUGATED 0.1 mg/dL Normal 0.0-0.2 [facility] Comment on above: Performed By: #### P RBC #### [facility] [address] [place] [address] Dr. Kayley Hatfield Bilirubin [Mass/Vol] 0.2 mg/dL Normal 0.2-1.0 [facility] Comment on above: Performed By: #### P RBC #### [facility] [address] [place] [address] Dr. Kayley Hatfield Globulin (S) [Mass/Vol] 3.1 g/dL Normal [facility] Comment on above: Performed By: #### P RBC #### [facility] [address] [place] [address] Dr. Kayley Hatfield Protein [Mass/Vol] 6.3 g/dL Critically low 6.4-8.[address] [facility] Comment on above: Performed By: #### P RBC #### [facility] [address] [place] [address] Dr. Kayley Hatfield MAGNESIUMon 03-28-2022 Magnesium [Mass/Vol] 1.8 mg/dL Normal 1.8-2.4 [facility] Comment on above: Performed By: #### H GBHCT #### [facility] [address] [place] [address] Dr. Kayley Hatfield PHOSPHORUSon 03-28-2022 Phosphate [Mass/Vol] 4.4 mg/dL Normal 2.6-4.7 [facility] Comment on above: Performed By: #### O BSCRN #### [facility] [address] [address] [address] Kayley Hatfield PROF CHEM 8 (BAS METB)on Anion gap [Moles/Vol] 10.1 mmol/L Normal Th [facility] Comment on above: Performed By: #### P RBC #### [facility] [address] [place] [address] Dr. Kayley Hatfield Calcium [Mass/Vol] 9.1 mg/dL Normal 8.5-10.1 [facility] Comment on above: Performed By: #### P RBC #### [facility] [address] [place] [address] Dr. Kayley Hatfield Chloride [Moles/Vol] 101 mmol/L Normal 98-107 [facility] Comment on above: Performed By: #### P RBC #### [facility] [address] [place] [address] Dr. Kayley Hatfield CO2 [Moles/Vol] 32.6 mmol/L Critically high 21.0-32.0 [facility] Comment on above: Performed By: #### P RBC #### [facility] [address] [place] [address] Dr. Kayley Hatfield Creatinine [Mass/Vol] 0.90 mg/dL Normal 0.55-1.02 [facility] Comment on above: Performed By: #### P RBC #### [facility] [address] [place] [address] Dr. Kayley Hatfield EGFR-AF BRAZILIAN >60 Normal >=60 [facility] Comment on above: Performed By: #### P RBC #### [facility] [address] [place] [address] Dr. Kayley Hatfield EGFR-NON AF BRAZILIAN >60 Normal >=60 [facility] Comment on above: Performed By: #### P RBC #### [facility] [address] [place] [address] Dr. Kayley Hatfield Glucose [Mass/Vol] 161 mg/dL Critically high 74-106 [facility] Comment on above: Performed By: #### P RBC #### [facility] [address] [address] [address] Kayley Hatfield Potassium [Moles/Vol] 4.7 mmol/L Normal 3.5-5.1 [facility] Comment on above: Performed By: #### P RBC #### [facility] [address] [address] [address] Kayley Hatfield Sodium [Moles/Vol] 139 mmol/L Normal 136-145 [facility] Comment on above: Performed By: #### P RBC #### [facility] [address] [address] [address] Kayley Hatfield Urea nitrogen [Mass/Vol] 15.0 mg/dL Normal 7.0-18.0 [facility] Comment on above: Performed By: #### P RBC #### [facility] [address] [address] [address] Kayley Hatfield Urea nitrogen/Creatinine [Mass ratio] 16.7 mg/mg Normal [facility] Comment on above: Performed By: #### P RBC #### [facility] [address] [address] [address] Kayley Hatfield RETICULOCYTEon 03-28-2022 RETIC 4.65 % Critically high 0.60-3.10 [facility] Comment on above: Performed By: #### L DH #### [facility] [address] [address] [address] Kayley Hatfield SED RATE WESTERGRENon 2021 SED RATE 12 mm/hr Normal <=30 [facility] Comment on above: Performed By: #### P RTELEC #### [facility] [address] [address] [address] Kayley Hatfield TSHon 03-28-2022 TSH 0.922 uIU/mL Normal 0.358-3.740 [facility] Comment on above: Performed By: #### P RBC #### [facility] [address] [address] [address] Kayley Hatfield TYPE AND SCREENon 03-28-2022 TYPE AND SCREEN Negative Normal [facility] Comment on above: Performed By: #### C VDTBH #### [facility] [address] [place] [address] Dr. Kayley Hatfield VIT B12 AND FOLATEon 022 Cobalamin (Vitamin B12) [Mass/Vol] 490.0 pg/mL Normal 193.0-986.0 [facility] Comment on above: Performed By: #### L DH #### [facility] [address] [place] [address] Dr. Kayley Hatfield FOLATE 14.00 ng/mL Normal 8.60-58.90 [facility] Comment on above: Performed By: #### L DH #### [facility] [address] [place] [address] Dr. Kayley Hatfield VITAMIN D 25 OHon 03-28-2022 VIT D 25-OH 41.5 ng/mL Normal [facility] Comment on above: Performed By: #### O BSCRN #### [facility] [address] [place] [address] Dr. Kayley Hatfield VIT D RANGES SEE BELOW Normal [facility] Comment on above: Result Comment: <20 ng/mL Vit D deficient 20 - <30 ng/mL Vit D insufficient 30 - 100 ng/mL Vit D sufficient >100 ng/mL Potential Toxicity Performed By: #### O BSCRN #### [facility] [address] [place] [address] Dr. Kayley Hatfield XR CHEST 1 Von [...] STEPHEN ARAIZA Date: 2022-03-28 21:37 Normal [facility] BASIC METABOLIC PANELon 09-0 Calcium [Mass/Vol] 8.9 mg/dL Normal 8.6-10.3 [facility] Comment on above: Order Comment: No: D o not add to previous draw Performed By: #### 3 5200, 05674, 90458, 27965 #### [facility] [address] [place] [id number], [facility] Chloride [Moles/Vol] 97 mmol/L Low 98-107 [facility] Comment on above: Order Comment: No: D o not add to previous draw Performed By: #### 3 5200, 57648, 16811, 65226 #### [facility] [address] [place] [address], [place] CO2 [Moles/Vol] 35 mmol/L High 21-31 [facility] Comment on above: Order Comment: No: D o not add to previous draw Performed By: #### 3 5200, 06542, 85319, 78657 #### [facility] [address] [place] [address], [place] Creatinine [Mass/Vol] 0.65 mg/dL Normal 0.60-1.20 [facility] Comment on above: Order Comment: No: D o not add to previous draw Performed By: #### 3 5200, 20780, 63811, 42250 #### [facility] [address] [place] [id number], [place] GFR/1.73 sq M.predicted among non-blacks MDRD (S/P/Bld) [Vol rate/Area] mL/min/{1.73_m2} Normal >60 [facility] Comment on above: Order Comment: No: D o not add to previous draw Result Comment: [facility]'s estimated glomerular filtration rate (eGFR) will no [...] of individuals. Performed By: #### 3 5200, 70146, 28672, 96692 #### [facility] [address] [place] [address], [place] Glucose [Mass/Vol] 161 mg/dL High 70-100 [facility] Comment on above: Order Comment: No: D o not add to previous draw Performed By: #### 3 5200, 85647, 09055, 75862 #### [facility] [address] [place] [address], [place] Potassium [Moles/Vol] 3.9 mmol/L Normal 3.5-5.1 [facility] Comment on above: Order Comment: No: D o not add to previous draw Performed By: #### 3 0, 03894, 36339, 86222 #### [facility] [address] [place] [address], [place] Sodium [Moles/Vol] 136 mmol/L Normal 136-145 [facility] Comment on above: Order Comment: No: D o not add to previous draw Performed By: #### 3 5200, 54544, 84962, 95178 #### [facility] [address] [place] [address], [place] Urea nitrogen [Mass/Vol] 16 mg/dL Normal 7-25 [facility] Comment on above: Order Comment: No: D o not add to previous draw Performed By: #### 3 5200, 03534, 99296, 00280 #### [facility] [address] [place] [address], [facility] CBC COMPLETE BLOOD COUNTon 0 03-15-2022 Hematocrit (Bld) [Volume fraction] 28.2 % Low 36.0-45.0 [facility] Comment on above: Order Comment: No: D o not add to previous draw Performed By: #### 3 5200 #### [facility] [address] [place] [address], [facility] Hemoglobin (Bld) [Mass/Vol] 8.3 g/dL Low 12.0-15.0 [facility] Comment on above: Order Comment: No: D o not add to previous draw Performed By: #### 3 5200 #### [facility] [address] [place] [address], [facility] MCH (RBC) [Entitic mass] 22.9 pg Low 27.0-33.0 [facility] Comment on above: Order Comment: No: D o not add to previous draw Performed By: #### 3 5200 #### [facility] [address] [facility] [place] [address], [facility] MCHC (RBC) [Mass/Vol] 29.4 g/dL Low 32.0-35.0 [facility] Comment on above: Order Comment: No: D o not add to previous draw Performed By: #### 3 5200 #### [facility] [address] [facility] [place] [address], [facility] MCV (RBC) [Entitic vol] 77.9 fL Low 82.0-98.0 [facility] Comment on above: Order Comment: No: D o not add to previous draw Performed By: #### 3 5200 #### [facility] [address] [place] [address], [facility] Nucleated RBC/100 WBC (Bld) [Ratio] 0 % Normal 0-0 [facility] Comment on above: Order Comment: No: D o not add to previous draw Performed By: #### 3 5200 #### [facility] [address] [place] [address], [facility] PLAT CNT 221 10*3/uL Normal 150-400 [facility] Comment on above: Order Comment: No: D o not add to previous draw Performed By: #### 3 5200 #### [facility] [address] [place] [address], [facility] RBC (Bld) [#/Vol] 3.62 10*6/uL Low 3.80-5.00 [facility] Comment on above: Order Comment: No: D o not add to previous draw Performed By: #### 3 5200 #### [facility] [address] [place] [address], [facility] RDW ---- Normal 11.5-15.0 [facility] Comment on above: Order Comment: No: D o not add to previous draw Result Comment: Prev ious RDW was unable to be calculated Performed By: #### 3 5200 #### [facility] [address] [place] [address], [facility] WBC (Bld) [#/Vol] 11.88 10*3/uL High 4.00-10.60 [facility] Comment on above: Order Comment: No: D o not add to previous draw Performed By: #### 3 5200 #### [facility] [address] POC GLUCOSE LABon 03-15-2022 Glucose [Mass/Vol] 109 mg/dL High 70-100 [facility] Comment on above: Performed By: #### 8 5499 ####[facility] POC GLUCOSE LABon 03-14-2022 Glucose [Mass/Vol] 278 mg/dL High 70-100 [facility] Comment on above: Performed By: #### 8 5499 ####[facility] [place] [address], [facility] Glucose [Mass/Vol] 195 mg/dL High 70-100 [facility] Comment on above: Performed By: #### 8 5499 ####[facility] [place] [address], [facility] Glucose [Mass/Vol] 114 mg/dL High 70-100 [facility] Comment on above: Performed By: #### 8 5499 ####[facility] [place] [address], [place] Glucose [Mass/Vol] 113 mg/dL High 70-100 [facility] Comment on above: Performed By: #### 3 5200 #### [facility] [address] [place] [address], [facility] PORTABLE CHEST 1 VIEWon PORTABLE CHEST 1 VIEW [facility] Department of Radiology [address] [id number] Patient Name: LISE CANALES : 1955 Sex: F Age: Race: White Pt. Location: [id number] Patient Status: I Ordered Date: 03/14/2022 2:35:00 [...] chest. Electronically signed: Tyshawn Tapia. Transcribed by: [email or web address], User Resident: Electronically Signed by: TYSHAWN TAPIA @ 03/14/2022 03:31 PM Normal [facility] Comment on above: Order Comment: Check Chest Tube Position, S/P Chest tube DC'd PORTABLE CHEST 1 VIEW [facility] Department of Radiology [address] [place] [id number] Patient Name: LISE CANALES : 1955 Sex: F Age: Race: White Pt. Location: [id number] Patient Status: I Ordered Date: 03/14/2022 6:50:00 [...] pneumothorax. Electronically signed: Tyshawn Tapia. Transcribed by: [email or web address], User Resident: Electronically Signed by: TYSHAWN TAPIA @ 03/14/2022 02:56 PM Normal [facility] Comment on above: Order Comment: Check Chest Tube Position, S/P Chest tube DC'd POC GLUCOSE LABon 03-13-2022 Glucose [Mass/Vol] 282 mg/dL High 70-100 [facility] Comment on above: Performed By: #### 8 5499 ####[facility] [place] [address], [place] Glucose [Mass/Vol] 163 mg/dL High 70-100 [facility] Comment on above: Performed By: #### 8 5499 ####[facility] [place] [address], [place] Glucose [Mass/Vol] 149 mg/dL High 70-100 [facility] Comment on above: Performed By: #### 3 5200 #### [facility] [address] [place] [address], [place] Glucose [Mass/Vol] 149 mg/dL High 70-100 [facility] Comment on above: Performed By: #### 8 5499 ####[facility] [place] [address], [place] PORTABLE CHEST 1 VIEWon 09-0 5-2022 PORTABLE CHEST 1 VIEW [facility] Department of Radiology [address] [place] [phone] Patient Name: LISE CANALES : 1955 Sex: F Age: Race: White Pt. Location: [address] [place] [address] Patient Status: I Ordered Date: 03/13/2022 4:15:00 [...] Position, s/p chest tube clamp on 03/[address] Gillis PROTOCOL: AP(PA) view [...] morning Electronically signed: Avinash Mckay. Transcribed by: [email or web address], User Resident: Electronically Signed by: AVINASH MCKAY @ 03/13/2022 06:20 PM Normal [facility] Comment on above: Order Comment: Check Chest Tube Position, S/P Chest tube DC'd PORTABLE CHEST 1 VIEW [facility] Department of Radiology [address] [place] [phone] Patient Name: LISE CANALES : 1955 Sex: F Age: Race: White Pt. Location: [id number] Patient Status: I Ordered Date: 03/13/2022 6:50:00 [...] congestion. Electronically signed: Tyshawn Tapia. Transcribed by: [email or web address], User Resident: Electronically Signed by: TYSHAWN TAPIA @ 03/13/2022 08:34 AM Normal [facility] Comment on above: Order Comment: Evalu ate for Aspiration POTASSIUM BLOODon 03-13-2022 Potassium [Moles/Vol] 4.5 mmol/L Normal 3.5-5.1 [facility] Comment on above: Order Comment: No: D o not add to previous draw Performed By: #### 3 5200 #### [facility] [address] [place] [address], [facility] BASIC METABOLIC PANELon Calcium [Mass/Vol] 9.4 mg/dL Normal 8.6-10.3 [facility] Comment on above: Order Comment: Check Chest Tube Position, S/P Chest tube DC'd Performed By: #### 0 0071 ####[facility] [place] [address], [facility] Chloride [Moles/Vol] 98 mmol/L Normal 98-107 [facility] Comment on above: Order Comment: Check Chest Tube Position, S/P Chest tube DC'd Performed By: #### 0 0071 ####[facility] [facility] [place] [address], [facility] CO2 [Moles/Vol] 34 mmol/L High 21-31 [facility] Comment on above: Order Comment: Check Chest Tube Position, S/P Chest tube DC'd Performed By: #### 0 0071 ####[facility] [facility] [place] [address], [facility] Creatinine [Mass/Vol] 0.56 mg/dL Low 0.60-1.20 [facility] Comment on above: Order Comment: Check Chest Tube Position, S/P Chest tube DC'd Performed By: #### 0 0071 ####[facility] [place] [address], [facility] GFR/1.73 sq M.predicted among non-blacks MDRD (S/P/Bld) [Vol rate/Area] mL/min/{1.73_m2} Normal >60 [facility] Comment on above: Order Comment: Check Chest Tube Position, S/P Chest tube DC'd Result Comment: [facility]'s estimated glomerular filtration rate (eGFR) will no [...] of individuals. Performed By: #### 0 0071 ####[facility] [place] [address], [facility] Glucose [Mass/Vol] 114 mg/dL High 70-100 [facility] Comment on above: Order Comment: Check Chest Tube Position, S/P Chest tube DC'd Performed By: #### 0 0071 ####[facility] [place] [address], [facility] Potassium [Moles/Vol] 3.3 mmol/L Low 3.5-5.1 [facility] Comment on above: Order Comment: Check Chest Tube Position, S/P Chest tube DC'd Performed By: #### 0 0071 ####[facility] [place] [address], [facility] Sodium [Moles/Vol] 140 mmol/L Normal 136-145 [facility] Comment on above: Order Comment: Check Chest Tube Position, S/P Chest tube DC'd Performed By: #### 0 0071 ####[facility] [place] [address], [facility] Urea nitrogen [Mass/Vol] 9 mg/dL Normal 7-25 [facility] Comment on above: Order Comment: Check Chest Tube Position, S/P Chest tube DC'd Performed By: #### 0 0071 ####[facility] CBC COMPLETE BLOOD COUNTon 0 03-12-2022 Hematocrit (Bld) [Volume fraction] 35.2 % Low 36.0-45.0 [facility] Comment on above: Order Comment: No: D o not add to previous draw Performed By: #### 3 5200 #### [facility] [address] [place] [address], [facility] Hemoglobin (Bld) [Mass/Vol] 10.1 g/dL Low 12.0-15.0 [facility] Comment on above: Order Comment: No: D o not add to previous draw Performed By: #### 3 5200 #### [facility] [address] [place] [address], [facility] IMM PLATELET FRAC 3.6 % Normal 0.8-6.3 [facility] Comment on above: Order Comment: No: D o not add to previous draw Performed By: #### 3 5200 #### [facility] [address] [facility] [place] [address], [facility] MCH (RBC) [Entitic mass] 21.9 pg Low 27.0-33.0 [facility] Comment on above: Order Comment: No: D o not add to previous draw Performed By: #### 3 5200 #### [facility] [address] [facility] [place] [address], [facility] MCHC (RBC) [Mass/Vol] 28.7 g/dL Low 32.0-35.0 [facility] Comment on above: Order Comment: No: D o not add to previous draw Performed By: #### 3 5200 #### [facility] [address] [place] [address], [facility] MCV (RBC) [Entitic vol] 76.2 fL Low 82.0-98.0 [facility] Comment on above: Order Comment: No: D o not add to previous draw Performed By: #### 3 5200 #### [facility] [address] [place] [address], [facility] Nucleated RBC/100 WBC (Bld) [Ratio] 0 % Normal 0-0 [facility] Comment on above: Order Comment: No: D o not add to previous draw Performed By: #### 3 5200 #### [facility] [address] [place] [address], [facility] PLAT CNT 129 10*3/uL Low 150-400 [facility] Comment on above: Order Comment: No: D o not add to previous draw Performed By: #### 3 5200 #### [facility] [address] [place] [address], [facility] RBC (Bld) [#/Vol] 4.62 10*6/uL Normal 3.80-5.00 [facility] Comment on above: Order Comment: No: D o not add to previous draw Performed By: #### 3 5200 #### [facility] [address] [place] [id number], [facility] RDW Unable to Calculate Normal 11.5-15.0 [facility] Comment on above: Order Comment: No: D o not add to previous draw Performed By: #### 3 5200 #### [facility] [address] [place] [id number], [facility] WBC (Bld) [#/Vol] 11.72 10*3/uL High 4.00-10.60 [facility] Comment on above: Order Comment: No: D o not add to previous draw Performed By: #### 3 5200 #### [facility] [address] [place] [address], [facility] POC GLUCOSE LABon 03-12-2022 Glucose [Mass/Vol] 252 mg/dL High 70-100 [facility] Comment on above: Performed By: #### 3 5200 #### [facility] [address] [place] [address], [facility] POC GLUCOSE LABon 03-11-2022 Glucose [Mass/Vol] 121 mg/dL High 70-100 [facility] Comment on above: Performed By: #### 8 5499 ####[facility] [place] [address], [facility] Glucose [Mass/Vol] 122 mg/dL High 70-100 [facility] Comment on above: Performed By: #### 3 5200 #### [facility] [address] [facility] [place] [address], [facility] Glucose [Mass/Vol] 86 mg/dL Normal 70-100 [facility] [facility] Comment on above: Performed By: #### 3 5200 #### [facility] [address] [place] [address], [facility] PORTABLE CHEST 1 VIEWon PORTABLE CHEST 1 VIEW [facility] Department of Radiology [address] [place] [address] Patient Name: LISE CANALES : 1955 Sex: F Age: Race: White Pt. Location: [address] [place] [address] Patient Status: I Ordered Date: 03/11/2022 3:25:00 [...] abnormalities Electronically signed: Avinash Mckay. Transcribed by: [email or web address], User Resident: Electronically Signed by: AVINASH MCKAY @ 03/11/2022 06:30 PM Normal [facility] Comment on above: Order Comment: Evalu ate for Atelectasis CBC COMPLETE BLOOD COUNTon 0 03-10-2022 Erythrocyte distribution width (RBC) [Ratio] 29.9 % High 11.5-15.0 [facility] Comment on above: Order Comment: No: D o not add to previous draw Performed By: #### 3 5200 #### [facility] [address] [place] [address], [facility] Hematocrit (Bld) [Volume fraction] 32.2 % Low 36.0-45.0 [facility] Comment on above: Order Comment: No: D o not add to previous draw Performed By: #### 3 5200 #### [facility] [address] [facility] [place] [address], [facility] Hemoglobin (Bld) [Mass/Vol] 9.2 g/dL Low 12.0-15.0 [facility] Comment on above: Order Comment: No: D o not add to previous draw Performed By: #### 3 5200 #### [facility] [address] [place] [address], [facility] IMM PLATELET FRAC 3.4 % Normal 0.8-6.3 [facility] Comment on above: Order Comment: No: D o not add to previous draw Performed By: #### 3 5200 #### [facility] [address] [place] [address], [facility] MCH (RBC) [Entitic mass] 21.9 pg Low 27.0-33.0 [facility] Comment on above: Order Comment: No: D o not add to previous draw Performed By: #### 3 5200 #### [facility] [address] [place] [address], [facility] MCHC (RBC) [Mass/Vol] 28.6 g/dL Low 32.0-35.0 [facility] Comment on above: Order Comment: No: D o not add to previous draw Performed By: #### 3 5200 #### [facility] [address] [place] [id number], [facility] MCV (RBC) [Entitic vol] 76.7 fL Low 82.0-98.0 [facility] Comment on above: Order Comment: No: D o not add to previous draw Performed By: #### 3 5200 #### [facility] [address] [facility] [place] [address], [facility] Nucleated RBC/100 WBC (Bld) [Ratio] 0 % Normal 0-0 [facility] Comment on above: Order Comment: No: D o not add to previous draw Performed By: #### 3 5200 #### [facility] [address] [facility] [place] [id number], [facility] PLAT CNT 124 10*3/uL Low 150-400 [facility] Comment on above: Order Comment: No: D o not add to previous draw Performed By: #### 3 5200 #### [facility] [address] [facility] [place] [id number], [facility] RBC (Bld) [#/Vol] 4.20 10*6/uL Normal 3.80-5.00 [facility] Comment on above: Order Comment: No: D o not add to previous draw Performed By: #### 3 5200 #### [facility] [address] [place] [address], [facility] WBC (Bld) [#/Vol] 12.68 10*3/uL High 4.00-10.60 [facility] Comment on above: Order Comment: No: D o not add to previous draw Performed By: #### 3 5200 #### [facility] [address] [place] [address], [facility] HEMOGLOBIN A1Con 03-10-2022 Glucose [Moles/Vol] 143 mmol/L Normal [facility] Comment on above: Order Comment: No: D o not add to previous draw Result Comment: Resu lt changed by BSHORT on 03/10/2022 13:15. The previous value was 140. Performed By: #### 3 1791 #### [facility] [address] [place] [address], [facility] HbA1c (Bld) [Mass fraction] 6.6 % High 4.0-6.0 [facility] Comment on above: Order Comment: No: D o not add to previous draw Result Comment: Resu lt changed by BSHORT on 03/10/2022 13:15. The previous value was 6.5. Performed By: #### 3 1791 #### [facility] [address] [place] [address], [facility] POC GLUCOSE LABon 03-10-2022 Glucose [Mass/Vol] 107 mg/dL High 70-100 [facility] Comment on above: Performed By: #### 3 5200 #### [facility] [address] [place] [address], [place] Glucose [Mass/Vol] 100 mg/dL Normal 70-100 [facility] Comment on above: Performed By: #### 8 5499 ####[facility] [place] [address], [place] Glucose [Mass/Vol] 147 mg/dL High 70-100 [facility] Comment on above: Performed By: #### 8 5499 ####[facility] [facility] Glucose [Mass/Vol] 65 mg/dL Low 70-100 [facility] Comment on above: Performed By: #### 8 5499 ####[facility] [place], [place] [id number] [place] [address] PORTABLE CHEST 1 VIEWon PORTABLE CHEST 1 VIEW [facility] Department of Radiology [address] [place] [id number] Patient Name: LISE CANALES : 1955 Sex: F Age: Race: White Pt. Location: [id number] Patient Status: I Ordered Date: 03/10/2022 7:40:00 [...] recommended. Electronically signed: Derek Ingram. Transcribed by: [email or web address], User Resident: Electronically Signed by: DEREK INGRAM @ 03/10/2022 12:10 PM Normal [facility] Comment on above: Order Comment: No: D o not add to previous draw *URINE CULTUREon 03-09-2022 *URINE CULTURE Clinical Report: (D) Specimen/Source: URINE/CLEAN VOID URINE Collected: 03/09/2022 01:58 Status: Final Last Updated: 03/10/2022 08:51 ISO (Final) 50,000 - 100,000 Cfu/mL Mixed Lexi: Multiple Organisms present suggest contamination. Suggest Repeat Specimen Normal [facility] Comment on above: Performed By: #### 3 0339 ####[facility] CBC W/DIFFon 03-09-2022 ABS IMM GRANS 0.1 10*3/uL Normal 0.0-0.2 [facility] Comment on above: Order Comment: Check Chest Tube Position, S/P Chest tube DC'd Performed By: #### 5 0103 ####[facility] ABS NEUTROPHILS 13.3 10*3/uL High 1.6-7.6 [facility] Comment on above: Order Comment: Check Chest Tube Position, S/P Chest tube DC'd Performed By: #### 5 0103 ####[facility] ANISO Moderate Normal [facility] Comment on above: Order Comment: Check Chest Tube Position, S/P Chest tube DC'd Performed By: #### 5 0103 ####[facility] [place] [address], [facility] Basophils (Bld) [#/Vol] 0.0 10*3/uL Normal 0.0-0.2 [facility] Comment on above: Order Comment: Check Chest Tube Position, S/P Chest tube DC'd Performed By: #### 5 0103 ####[facility] Basophils/100 WBC (Bld) 0.3 % Normal 0.0-1.0 [facility] Comment on above: Order Comment: Check Chest Tube Position, S/P Chest tube DC'd Performed By: #### 5 0103 ####[facility] [place] [address], [facility] Eosinophils (Bld) [#/Vol] 0.1 10*3/uL Normal 0.0-0.5 [facility] Comment on above: Order Comment: Check Chest Tube Position, S/P Chest tube DC'd Performed By: #### 5 0103 ####[facility] [place] [address], [facility] Eosinophils/100 WBC (Bld) 0.5 % Normal 0.0-6.0 [facility] Comment on above: Order Comment: Check Chest Tube Position, S/P Chest tube DC'd Performed By: #### 5 0103 ####[facility] Erythrocyte distribution width (RBC) [Ratio] 28.7 % High 11.5-15.0 [facility] Comment on above: Order Comment: Check Chest Tube Position, S/P Chest tube DC'd Performed By: #### 5 0103 ####[facility] Hematocrit (Bld) [Volume fraction] 29.1 % Low 36.0-45.0 [facility] Comment on above: Order Comment: Check Chest Tube Position, S/P Chest tube DC'd Performed By: #### 5 0103 ####[facility] Hemoglobin (Bld) [Mass/Vol] 8.3 g/dL Low 12.0-15.0 [facility] Comment on above: Order Comment: Check Chest Tube Position, S/P Chest tube DC'd Performed By: #### 5 3 ####[facility] HYPO Slight Normal [facility] Comment on above: Order Comment: Check Chest Tube Position, S/P Chest tube DC'd Performed By: #### 5 3 ####[facility] IMMATURE GRANS 0.5 % Normal 0.0-1.0 [facility] Comment on above: Order Comment: Check Chest Tube Position, S/P Chest tube DC'd Performed By: #### 5 0103 ####[facility] Lymphocytes (Bld) [#/Vol] 0.8 10*3/uL Low 1.2-4.0 [facility] Comment on above: Order Comment: Check Chest Tube Position, S/P Chest tube DC'd Performed By: #### 5 0103 ####[facility] Lymphocytes/100 WBC (Bld) 5.5 % Low 20.0-45.0 [facility] Comment on above: Order Comment: Check Chest Tube Position, S/P Chest tube DC'd Performed By: #### 5 0103 ####[facility] MCH (RBC) [Entitic mass] 21.7 pg Low 27.0-33.0 [facility] Comment on above: Order Comment: Check Chest Tube Position, S/P Chest tube DC'd Performed By: #### 5 3 ####[facility] MCHC (RBC) [Mass/Vol] 28.5 g/dL Low 32.0-35.0 [facility] Comment on above: Order Comment: Check Chest Tube Position, S/P Chest tube DC'd Performed By: #### 5 3 ####[facility] MCV (RBC) [Entitic vol] 76.2 fL Low 82.0-98.0 [facility] Comment on above: Order Comment: Check Chest Tube Position, S/P Chest tube DC'd Performed By: #### 5 102 ####[facility] Monocytes (Bld) [#/Vol] 1.1 10*3/uL High 0.1-1.0 [facility] Comment on above: Order Comment: Check Chest Tube Position, S/P Chest tube DC'd Performed By: #### 102 ####[facility] MONOS 7.3 % Normal 5.0-12.0 [facility] Comment on above: Order Comment: Check Chest Tube Position, S/P Chest tube DC'd Performed By: #### 3 ####[facility] [place] [address] [facility] Neutrophils/100 WBC (Bld) 85.9 % High 40.0-72.0 [facility] Comment on above: Order Comment: Check Chest Tube Position, S/P Chest tube DC'd Performed By: #### 5 0103 ####[facility] [facility] [place] [address], [facility] Nucleated RBC/100 WBC (Bld) [Ratio] 0 % Normal 0-0 [facility] Comment on above: Order Comment: Check Chest Tube Position, S/P Chest tube DC'd Performed By: #### 5 0103 ####[facility] [place] [address], [facility] PLAT CNT 149 10*3/uL Low 150-400 [facility] Comment on above: Order Comment: Check Chest Tube Position, S/P Chest tube DC'd Performed By: #### 5 0103 ####[facility] [place] [address], [facility] POIK Slight Normal [facility] Comment on above: Order Comment: Check Chest Tube Position, S/P Chest tube DC'd Performed By: #### 5 0103 ####[facility] [place] [address], [facility] POLY Slight Normal [facility] Comment on above: Order Comment: Check Chest Tube Position, S/P Chest tube DC'd Performed By: #### 5 0103 ####[facility] [place] [address], [facility] RBC (Bld) [#/Vol] 3.82 10*6/uL Normal 3.80-5.00 [facility] Comment on above: Order Comment: Check Chest Tube Position, S/P Chest tube DC'd Performed By: #### 5 3 ####[facility] [place] [address], [facility] WBC (Bld) [#/Vol] 15.41 10*3/uL High 4.00-10.60 [facility] Comment on above: Order Comment: Check Chest Tube Position, S/P Chest tube DC'd Performed By: #### 5 0103 ####[facility] [id number], [place] COMP METABOLIC PANELon 03-09 Albumin [Mass/Vol] 3.8 g/dL Normal 3.5-5.7 [facility] Comment on above: Order Comment: No: D o not add to previous draw Performed By: #### 3 5200, 48448, 54530, 59294 #### [facility] [address] [place] [address], [place] ALKALINE PHOSPH 52 IU/L Normal 34-104 [facility] Comment on above: Order Comment: No: D o not add to previous draw Performed By: #### 3 5200, 37890, 84145, 98111 #### [facility] [address] [place] [address], [place] ALT [Catalytic activity/Vol] 13 U/L Normal 7-52 [facility] Comment on above: Order Comment: No: D o not add to previous draw Performed By: #### 3 5200, 20466, 39756, 44496 #### [facility] [address] [place] [address], [place] AST [Catalytic activity/Vol] 14 U/L Normal 13-39 [facility] Comment on above: Order Comment: No: D o not add to previous draw Performed By: #### 3 5200, 87307, 86316, 03056 #### [facility] [address] [place] [address], [place] Bilirubin [Mass/Vol] 0.4 mg/dL Normal 0.3-1.0 [facility] Comment on above: Order Comment: No: D o not add to previous draw Performed By: #### 3 5200, 94596, 66664, 61858 #### [facility] [address] [place] [address], [place] Calcium [Mass/Vol] 9.2 mg/dL Normal 8.6-10.3 [facility] Comment on above: Order Comment: No: D o not add to previous draw Performed By: #### 3 5200, 38589, 20758, 92487 #### [facility] [address] [place] [address], [place] Chloride [Moles/Vol] 99 mmol/L Normal 98-107 [facility] Comment on above: Order Comment: No: D o not add to previous draw Performed By: #### 3 5200, 44019, 67561, 54011 #### [facility] [address] [place] [address], [place] CO2 [Moles/Vol] 33 mmol/L High 21-31 [facility] Comment on above: Order Comment: No: D o not add to previous draw Performed By: #### 3 5200, 88219, 30887, 13595 #### [facility] [address] [place] [address], [place] Creatinine [Mass/Vol] 0.79 mg/dL Normal 0.55-1.02 [facility] Comment on above: Order Comment: No: D o not add to previous draw Performed By: #### 3 5200, 10480, 35669, 41912 #### [facility] [address] [place] [address], [place] Performed By: #### B LDCX1 #### [facility] [address] [place] [address] Dr. Kayley Hatfield GFR/1.73 sq M.predicted among non-blacks MDRD (S/P/Bld) [Vol rate/Area] mL/min/{1.73_m2} Normal >60 [facility] Comment on above: Order Comment: No: D o not add to previous draw Result Comment: [facility]'s estimated glomerular filtration rate (eGFR) will no [...] of individuals. Performed By: #### 3 5200, 56792, 27276, 10233 #### [facility] [address] [place] [address], [place] Glucose [Mass/Vol] 125 mg/dL High 70-100 [facility] Comment on above: Order Comment: No: D o not add to previous draw Performed By: #### 3 0, 46365, 96566, 36604 #### [facility] [address] [place] [address], [place] Potassium [Moles/Vol] 4.7 mmol/L Normal 3.5-5.1 [facility] Comment on above: Order Comment: No: D o not add to previous draw Performed By: #### 3 0, 77442, 41882, 27995 #### [facility] [address] [place] [address], [place] Protein [Mass/Vol] 5.9 g/dL Low 6.0-8.3 [facility] Comment on above: Order Comment: No: D o not add to previous draw Performed By: #### 3 0, 44262, 84933, 08983 #### [facility] [address] [place] [address], [place] Sodium [Moles/Vol] 136 mmol/L Normal 136-145 [facility] Comment on above: Order Comment: No: D o not add to previous draw Performed By: #### 3 0, 19418, 04718, 75330 #### [facility] [address] [place] [address], [place] Urea nitrogen [Mass/Vol] 12 mg/dL Normal 7-25 [facility] Comment on above: Order Comment: No: D o not add to previous draw Performed By: #### 3 5200, 08670, 61195, 99892 #### [facility] [address] [place] [address], [facility] LIPID PROFILEon 03-09-2022 Cholesterol [Mass/Vol] 160 mg/dL Normal 120-200 [facility] Comment on above: Order Comment: No: D o not add to previous draw Result Comment: CHOL ESTEROL REFERENCE RANGE: 20 YEARS AND OLDER CARDIOVASCULAR RISK Less than 200 mg/dl Low Risk 200 to 239 mg/dl Borderline Risk 240 mg/dl and greater High Risk Performed By: #### 3 5200, 25469, 29128, 81802 #### [facility] [address] [place] [address], [facility] Cholesterol in HDL [Mass/Vol] 76 mg/dL Normal 23-92 [facility] Comment on above: Order Comment: No: D o not add to previous draw Result Comment: Slig ht variation in normal range could be due to gender and/or age. HDL CHOLESTEROL REFERENCE RANGE: 20 years and older Cardiovascular Risk > or =60 mg/dL Desirable 40 TO 59 mg/dL Low Risk <40 mg/dL High Risk Performed By: #### 3 5200, 33103, 90547, 05831 #### [facility] [address] [place] [address], [facility] Cholesterol in LDL [Mass/Vol] 48 mg/dL Normal 0-130 [facility] Comment on above: Order Comment: No: D o not add to previous draw Result Comment: LDL IS A CALCULATION LDL IS ONLY VALID IF THE TRIG IS LESS THAN 400. Performed By: #### 3 7680, 57860, 56979, 45866 #### [facility] [address] [place] [address], [place] Cholesterol.total/Cho lesterol in HDL [Mass ratio] 2.1 {ratio} Normal .0-4.5 [facility] Comment on above: Order Comment: No: D o not add to previous draw Performed By: #### 3 5200, 39589, 51412, 21871 #### [facility] [address] NON-HDL CHOLESTEROL 84 mg/dL Normal [facility] Comment on above: Order Comment: No: D o not add to previous draw Performed By: #### 3 5200, 68440, 79110, 58703 #### [facility] [address] [place] [address], [facility] Triglyceride [Mass/Vol] 179 mg/dL High 40-149 [facility] Comment on above: Order Comment: No: D o not add to previous draw Result Comment: TRIG LYCERIDE REFERENCE RANGE: 20 YEARS AND OLDER CARDIOVASCULAR RISK LESS THAN 150 mg/dl LOW RISK 150 TO 199 mg/dl BORDERLINE RISK 200 mg/dl AND GREATER HIGH RISK Performed By: #### 3 5200, 63665, 53240, 61224 #### [facility] [address] [place] [address], [facility] VLDL CHOL 36 mg/dL Normal 0-40 [facility] Comment on above: Order Comment: No: D o not add to previous draw Performed By: #### 3 5200, 73742, 92508, 03742 #### [facility] [address] [place] [address], [facility] POC GLUCOSE LABon 03-09-2022 Glucose [Mass/Vol] 105 mg/dL High 70-100 [facility] Comment on above: Performed By: #### 8 5499 ####[facility] [place] [address], [facility] POC SARS COV2 ANTIGEN NEGATI VEon 03-09-2022 POC SARS COV2 ANTIGEN NEG Negative Normal NEGATIVE [facility] Comment on above: Result Comment: Nega tive [...] antigen from SARS-CoV-2 in direct nasopharyngeal swab (ADMITTING OFFICER) specimens from individuals who are suspected of [...] of Accreditation. Performed By: #### 3 2044 ####[address] PORTABLE CHEST 1 VIEWon PORTABLE CHEST 1 VIEW [facility] Department of Radiology [address] [place] [id number] Patient Name: LISE CANALES : 1955 Sex: F Age: Race: White Pt. Location: [id number] Patient Status: I Ordered Date: 03/09/2022 8:55:00 [...] COPD. Electronically signed: Derek Ingram. Transcribed by: [email or web address], User Resident: Electronically Signed by: DEREK INGRAM @ 03/09/2022 02:48 PM Normal [facility] Comment on above: Order Comment: Check Chest Tube Position, S/P Chest tube DC'd TROPONIN-Ion 03-09-2022 Troponin I.cardiac [Mass/Vol] 0.00 ng/mL Normal 0.00-0.04 [facility] Comment on above: Order Comment: No: D o not add to previous draw Result Comment: REFE RENCE RANGES: 0.00 - 0.04 ng/ml NORMAL 0.05 - 0.50 ng/ml INDETERMINATE > 0.50 ng/ml CONSISTENT WITH AN M.I. Performed By: #### 3 9750, 44615, 90774, 13203 #### [facility] [address] Troponin I.cardiac [Mass/Vol] 0.01 ng/mL Normal 0.00-0.04 [facility] Comment on above: Order Comment: No: D o not add to previous draw Result Comment: REFE RENCE RANGES: 0.00 - 0.04 ng/ml NORMAL 0.05 - 0.50 ng/ml INDETERMINATE > 0.50 ng/ml CONSISTENT WITH AN M.I. Performed By: #### 3 5200 #### [facility] [address] [facility] [place] [address], [facility] Troponin I.cardiac [Mass/Vol] 0.00 ng/mL Normal 0.00-0.04 [facility] Comment on above: Order Comment: No: D o not add to previous draw Result Comment: REFE RENCE RANGES: 0.00 - 0.04 ng/ml NORMAL 0.05 - 0.50 ng/ml INDETERMINATE > 0.50 ng/ml CONSISTENT WITH AN M.I. Performed By: #### 3 5200, 26943, 61799, 74455 #### [facility] [address] TSH3 WITH REFLEX FT4on 03-09 TSH 3RD GENERATION 0.60 uIU/mL Normal 0.34-5.60 [facility] Comment on above: Order Comment: No: D o not add to previous draw Performed By: #### 3 5200, 39430, 14126, 11449 #### [facility] [address] [place] [address], [facility] URINALYSIS REFLEXon 03-09-20 Appearance (U) CLEAR Normal CLEAR [facility] Comment on above: Order Comment: Check Chest Tube Position, S/P Chest tube DC'd Performed By: #### 3 0965 ####[facility] [place] [address], [facility] Bilirubin Ql (U) Negative Normal NEGATIVE [facility] Comment on above: Order Comment: Check Chest Tube Position, S/P Chest tube DC'd Performed By: #### 3 0965 ####[facility] [place] [address], [facility] Color (U) STRAW Abnormal YELLOW [facility] Comment on above: Order Comment: Check Chest Tube Position, S/P Chest tube DC'd Performed By: #### 3 0965 ####[facility] [place] [address], [facility] EPIS OCC Normal FEW,OCC,NONE SEEN [facility] Comment on above: Order Comment: Check Chest Tube Position, S/P Chest tube DC'd Performed By: #### 3 0965 ####[facility] [place] [address], [facility] Glucose Ql (U) Negative Normal NEGATIVE [facility] Comment on above: Order Comment: Check Chest Tube Position, S/P Chest tube DC'd Performed By: #### 3 0965 ####[facility] [place] [address], [facility] Hemoglobin Ql (U) MODERATE Abnormal NEGATIVE [facility] Comment on above: Order Comment: Check Chest Tube Position, S/P Chest tube DC'd Performed By: #### 3 0965 ####[facility] [place] [address], [facility] KETONE Negative Normal NEGATIVE [facility] Comment on above: Order Comment: Check Chest Tube Position, S/P Chest tube DC'd Performed By: #### 3 0965 ####[facility] [place] [address], [facility] LEUK SHARMIN SMALL Abnormal NEGATIVE [facility] Comment on above: Order Comment: Check Chest Tube Position, S/P Chest tube DC'd Performed By: #### 3 0965 ####[facility] [place] [address], [facility] MUCUS THREADS OCC Abnormal NONE SEEN The [facility] Comment on above: Order Comment: Check Chest Tube Position, S/P Chest tube DC'd Performed By: #### 3 0965 ####[facility] Nitrite Ql (U) Negative Normal NEGATIVE [facility] Comment on above: Order Comment: Check Chest Tube Position, S/P Chest tube DC'd Performed By: #### 3 0965 ####[facility] pH (U) 6.0 [pH] Normal 5.0-8.0 [facility] Comment on above: Order Comment: Check Chest Tube Position, S/P Chest tube DC'd Performed By: #### 3 0965 ####[place] [id number] [address] Protein Ql (U) Negative Normal NEGATIVE [facility] Comment on above: Order Comment: Check Chest Tube Position, S/P Chest tube DC'd Performed By: #### 3 0965 ####[facility] [address] RBC 6-10 Abnormal NONE SEEN The [facility] Comment on above: Order Comment: Check Chest Tube Position, S/P Chest tube DC'd Performed By: #### 3 0965 ####[place] [id number] SPEC GRAV 1.015 Normal 1.015-1.020 [facility] Comment on above: Order Comment: Check Chest Tube Position, S/P Chest tube DC'd Performed By: #### 3 0965 ####[place] [id number] WBC UA 11-20 Abnormal NONE SEEN [facility] Comment on above: Order Comment: Check Chest Tube Position, S/P Chest tube DC'd Performed By: #### 3 0965 ####[address] [place] [address], [place] CBC W MANUAL DIFFon 03-08-20 22 ATYPICAL LYMPH # Normal [facility] Comment on above: Performed By: #### C VDTBH #### [facility] [address] [place] [address] Dr. Kayley Hatfield ATYPICAL LYMPH % Normal [facility] Comment on above: Performed By: #### C VDTBH #### [facility] [address] [place] [address] Dr. Kayley Hatfield BAND # Normal 0.0-0.3 [facility] Comment on above: Performed By: #### C VDTBH #### [facility] [address] [place] [address] Dr. Kayley Hatfield BAND % Normal 0-5 [facility] Comment on above: Performed By: #### C VDTBH #### [facility] [address] [place] [address] Dr. Kayley Hatfield BASOM # 0.00 103/ul Normal 0.00-0.10 [facility] Comment on above: Performed By: #### C VDTBH #### [facility] [address] [place] [address] Dr. Kayley Hatfield BASOM % 0.0 % Critically low 0.2-2.0 [facility] Comment on above: Performed By: #### C VDTBH #### [facility] [address] [place] [address] Dr. Kayley Hatfield BLAST # Normal [facility] Comment on above: Performed By: #### C VDTBH #### [facility] [address] [place] [address] Dr. Kayley Hatfield BLAST % Normal [facility] Comment on above: Performed By: #### C VDTBH #### [facility] [address] [place] [address] Dr. Kayley Hatfield CORRECTED WBC Normal 4.0-11.0 [facility] Comment on above: Performed By: #### C VDTBH #### [facility] [address] [place] [address] Dr. Kayley Hatfield EOS # 0.14 103/ul Normal 0.00-0.70 [facility] Comment on above: Performed By: #### C VDTBH #### [facility] [address] [place] [address] [address] Kayley Hatfield EOS% 1.0 % Normal 0.9-7.0 [facility] Comment on above: Performed By: #### C VDTBH #### [facility] [address] [place] [address] [address] Kayley Hatfield HCT 27.5 % Critically low 36.0-48.0 [facility] Comment on above: Performed By: #### C VDTBH #### [facility] [address] [place] [address] Dr. Kayley Hatfield HGB 7.9 g/dl Critically low 12.0-16.0 [facility] Comment on above: Performed By: #### C VDTBH #### [facility] [address] [place] [address] Dr. Kayley Hatfield LYMPHM # 1.42 103/ul Normal 1.20-3.80 [facility] Comment on above: Performed By: #### C VDTBH #### [facility] [address] [place] [address] Dr. Kayley Hatfield LYMPHM% 10.0 % Critically low 20.5-60.0 [facility] Comment on above: Performed By: #### C VDTBH #### [facility] [address] [place] [address] Dr. Kayley Hatfield MCH 21.5 pg Critically low 26.7-34.0 [facility] Comment on above: Performed By: #### C VDTBH #### [facility] [address] [place] [address] Dr. Kayley Hatfield MCHC 28.7 g/dl Critically low 29.9-35.2 [facility] Comment on above: Performed By: #### C VDTBH #### [facility] [address] [place] [address] Dr. Kayley Hatfield MCV 74.7 fL Critically low 81.0-99.0 [facility] Comment on above: Performed By: #### C VDTBH #### [facility] [address] [place] [address] Dr. Kayley Hatfield METAMYELOCYTE # Normal [facility] Comment on above: Performed By: #### C VDTBH #### [facility] [address] [place] [address] [address] Kayley Hatfield METAMYELOCYTE % Normal [facility] Comment on above: Performed By: #### C VDTBH #### [facility] [address] [place] [address] Dr. Kayley Hatfield MONOM# 2.13 103/ul Critically high 0.30-0.80 [facility] Comment on above: Performed By: #### C VDTBH #### [facility] [address] [place] [address] Dr. Kayley Hatfield MONOM% 15.0 % Critically high 1.7-12.0 [facility] Comment on above: Performed By: #### C VDTBH #### [facility] [address] [place] [address] Dr. Kayley Hatfield MPV 9.5 fL Normal 9.5-13.5 [facility] Comment on above: Performed By: #### C VDTBH #### [facility] [address] [place] [address] Dr. Kayley Hatfield MYELOCYTE # Normal [facility] Comment on above: Performed By: #### C VDTBH #### [facility] [address] [place] [address] Dr. Kayley Hatfield MYELOCYTE % Normal [facility] Comment on above: Performed By: #### C VDTBH #### [facility] [address] [place] [address] Dr. Kayley Hatfield NRBC Normal [facility] Comment on above: Performed By: #### C VDTBH #### [facility] [address] [place] [address] Dr. Kayley Hatfield PLT 180 103/ul Normal 150-450 [facility] Comment on above: Performed By: #### C VDTBH #### [facility] [address] [place], [place] [address] Dr. Kayley Hatfield RBC 3.68 106/ul Critically low 4.20-5.40 [facility] Comment on above: Performed By: #### C VDTBH #### [facility] [address] [place], [place] [address] Dr. Kayley Hatfield RDW 27.5 % Critically high 11.0-15.0 [facility] Comment on above: Performed By: #### C VDTBH #### [facility] [address] [place], [place] [address] Dr. Kayley Hatfield SEG # 10.51 103/ul Critically high 1.40-6.50 [facility] Comment on above: Performed By: #### C VDTBH #### [facility] [address] [place] [id number] Kayley Hatfield SEG % 74.0 % Normal 43.0-75.0 [facility] Comment on above: Performed By: #### C VDTBH #### [facility] [address] [place], [place] [address] Dr. Kayley Hatfield WBC 14.2 103/ul Critically high 4.0-11.0 [facility] Comment on above: Performed By: #### C VDTBH #### [facility] [address] [place] [id number] Kayley Hatfield PRBC LEUKOREDUCEDon 03-08-20 ABO and Rh group Nom (Bld) Cross Match Result Compatible Unit Blood Type O Pos Unit Number [id number] Status Information Transfused Product ID Red Blood Cells Product Code [id number] Cross Match Result Compatible Blood Bank Notes CALLED TO VIC IN ICU @1657 Unit Blood Type O Pos Unit Number [id number] Status Information Transfused Product ID Red Blood Cells Product Code [id number] Normal [facility] Comment on above: Performed By: #### P RBC #### [facility] [address] [place] [address] [address] Kayley Hatfield PROF CHEM 8 (BAS METB)on Anion gap [Moles/Vol] 10.1 mmol/L Normal [facility] Comment on above: Performed By: #### B LDCX1 #### [facility] [address] [place] [address] [address] Kayley Hatfield Calcium [Mass/Vol] 8.8 mg/dL Normal 8.5-10.1 [facility] Comment on above: Performed By: #### B LDCX1 #### [facility] [address] [place] [address] [address] Kayley Hatfield Chloride [Moles/Vol] 100 mmol/L Normal 98-107 [facility] Comment on above: Performed By: #### B LDCX1 #### [facility] [address] [place] [address] Dr. Kayley Hatfield CO2 [Moles/Vol] 34.2 mmol/L Critically high 21.0-32.0 [facility] Comment on above: Performed By: #### B LDCX1 #### [facility] [address] [place] [address] Dr. Kayley Hatfield EGFR-AF BRAZILIAN >60 Normal >=60 [facility] Comment on above: Performed By: #### B LDCX1 #### [facility] [address] [place] [address] Dr. Kayley Hatfield EGFR-NON AF BRAZILIAN >60 Normal >=60 [facility] Comment on above: Performed By: #### B LDCX1 #### [facility] [address] [place] [address] [address] Kayley Hatfield Glucose [Mass/Vol] 107 mg/dL Critically high 74-106 [facility] Comment on above: Performed By: #### B LDCX1 #### [facility] [address] [place] [address] [address] Kayley Hatfield Potassium [Moles/Vol] 4.3 mmol/L Normal 3.5-5.1 [facility] Comment on above: Performed By: #### B LDCX1 #### [facility] [address] [place] [address] [address] Kayley Hatfield Sodium [Moles/Vol] 140 mmol/L Normal 136-145 [facility] Comment on above: Performed By: #### B LDCX1 #### [facility] [address] [place] [address] [address] Kayley Hatfield Urea nitrogen [Mass/Vol] 15.0 mg/dL Normal 7.0-18.0 [facility] Comment on above: Performed By: #### B LDCX1 #### [facility] [address] [place] [address] [address] Kayley Hatfield Urea nitrogen/Creatinine [Mass ratio] 19.0 mg/mg Normal [facility] Comment on above: Performed By: #### B LDCX1 #### [facility] [address] [place] [address] Dr. Kayley Hatfield XR CHEST 1 Von [...] MIGUE REYNOSO Date: 2022-03-08 07:02 Normal [facility] CBC W MANUAL DIFFon 03-07-20 22 ACANTHOCYTES SLIGHT Normal [facility] Comment on above: Performed By: #### B [email or web address] #### [facility] [address] [place] [address] Dr. Kayley Hatfield ANISOCYTOSIS 2+ Normal [facility] Comment on above: Performed By: #### B LDCX1 #### [facility] [address] [place] [address] Dr. Kayley Hatfield ATYPICAL LYMPH # Normal [facility] Comment on above: Performed By: #### B LDCX1 #### [facility] [address] [place] [address] Dr. Kayley Hatfield ATYPICAL LYMPH % Normal [facility] Comment on above: Performed By: #### B LDCX1 #### [facility] [address] [place] [address] Dr. Kayley Hatfield BAND # 0.0 103/ul Normal 0.0-0.3 [facility] Comment on above: Performed By: #### B LDCX1 #### [facility] [address] [place] [address] Dr. Kayely Hatfield BAND % 0 % Normal 0-5 [facility] Comment on above: Performed By: #### B LDCX1 #### [facility] [address] [place] [address] Dr. Kayley Hatfield BASOM # 0.00 103/ul Normal 0.00-0.10 [facility] Comment on above: Performed By: #### B LDCX1 #### [facility] [address] [place] [address] Dr. Kayley Hatfield BASOM % 0.0 % Critically low 0.2-2.0 [facility] Comment on above: Performed By: #### B LDCX1 #### [facility] [address] [place] [address] Dr. Kayley Hatfield BLAST # Normal [facility] Comment on above: Performed By: #### B LDCX1 #### [facility] [address] [place] [address] Dr. Kayley Hatfield BLAST % Normal [facility] Comment on above: Performed By: #### B LDCX1 #### [facility] [address] [place] [address] Dr. Kayley Hatfield ANDREE CELLS SLIGHT Normal [facility] Comment on above: Performed By: #### B LDCX1 #### [facility] [address] [place] [address] Dr. Kayley Hatfield CORRECTED WBC Normal 4.0-11.0 [facility] Comment on above: Performed By: #### B LDCX1 #### [facility] [address] [place] [address] Dr. Kayley Hatfield EOS # 0.16 103/ul Normal 0.00-0.70 [facility] Comment on above: Performed By: #### B LDCX1 #### [facility] [address] [place] [address] [address] Kayley Hatfield EOS% 1.0 % Normal 0.9-7.0 [facility] Comment on above: Performed By: #### B LDCX1 #### [facility] [address] [place] [address] Dr. Kayley Hatfield GIANT PLATELETS SEEN Normal [facility] Comment on above: Performed By: #### B LDCX1 #### [facility] [address] [place] [address] Dr. Kayley Hatfield HCT 31.1 % Critically low 36.0-48.0 [facility] Comment on above: Performed By: #### B LDCX1 #### [facility] [address] [place] [address] Dr. Kayley Hatfield HGB 9.1 g/dl Critically low 12.0-16.0 [facility] Comment on above: Performed By: #### B LDCX1 #### [facility] [address] [place] [address] Dr. Kayley Hatfield HYPOCHROMASIA 1+ Normal [facility] Comment on above: Performed By: #### B LDCX1 #### [facility] [address] [place] [address] Dr. Kayley Hatfield LYMPHM # 2.09 103/ul Normal 1.20-3.80 [facility] Comment on above: Performed By: #### B LDCX1 #### [facility] [address] [place] [address] Dr. Kayley Hatfield LYMPHM% 13.0 % Critically low 20.5-60.0 [facility] Comment on above: Performed By: #### B LDCX1 #### [facility] [address] [place] [address] Dr. Kayley Hatfield MCH 21.4 pg Critically low 26.7-34.0 [facility] Comment on above: Performed By: #### B LDCX1 #### [facility] [address] [place] [address] [address] Kayley Hatfield MCHC 29.3 g/dl Critically low 29.9-35.2 [facility] Comment on above: Performed By: #### B LDCX1 #### [facility] [address] [place] [address] Dr. Kayley Hatfield MCV 73.0 fL Critically low 81.0-99.0 [facility] Comment on above: Performed By: #### B LDCX1 #### [facility] [address] [place] [address] Dr. Kayley Hatfield METAMYELOCYTE # Normal [facility] Comment on above: Performed By: #### B LDCX1 #### [facility] [address] [place] [address] Dr. Kayley Hatfield METAMYELOCYTE % Normal [facility] Comment on above: Performed By: #### B LDCX1 #### [facility] [address] [place] [address] Dr. Kayley Hatfield MICROCYTOSIS SLIGHT Normal [facility] Comment on above: Performed By: #### B LDCX1 #### [facility] [address] [place] [address] Dr. Kayley Hatfield MONOM# 0.48 103/ul Normal 0.30-0.80 [facility] Comment on above: Performed By: #### B LDCX1 #### [facility] [address] [place] [address] Dr. Kayley Hatfield MONOM% 3.0 % Normal 1.7-12.0 [facility] Comment on above: Performed By: #### B LDCX1 #### [facility] [address] [place] [address] Dr. Kayley Hatfield MPV 8.9 fL Critically low 9.5-13.5 [facility] Comment on above: Performed By: #### B LDCX1 #### [facility] [address] [place] [address] Dr. Kayley Hatfield MYELOCYTE # Normal [facility] Comment on above: Performed By: #### B LDCX1 #### [facility] [address] [address] [address] Kayley Hatfield MYELOCYTE % Normal [facility] Comment on above: Performed By: #### B LDCX1 #### [facility] [address] [address] [address] Kayley Hatfield NRBC Normal [facility] Comment on above: Performed By: #### B LDCX1 #### [facility] [address] [place] [address] Dr. Kayley Hatfield PLT 243 103/ul Normal 150-450 [facility] Comment on above: Performed By: #### B LDCX1 #### [facility] [address] [place] [address] Dr. Kayley Hatfield RBC 4.26 106/ul Normal 4.20-5.40 [facility] Comment on above: Performed By: #### B LDCX1 #### [facility] [address] [place] [address] Dr. Kayley Hatfield RDW 27.1 % Critically high 11.0-15.0 [facility] Comment on above: Performed By: #### B LDCX1 #### [facility] [address] [place] [address] Dr. Kayley Hatfield SEG # 13.36 103/ul Critically high 1.40-6.50 [facility] Comment on above: Performed By: #### B LDCX1 #### [facility] [address] [place] [address] Dr. Kayley Hatfield SEG % 83.0 % Critically high 43.0-75.0 [facility] Comment on above: Performed By: #### B LDCX1 #### [facility] [address] [place] [address] Dr. Kayley Hatfield WBC 16.1 103/ul Critically high 4.0-11.0 [facility] Comment on above: Performed By: #### B LDCX1 #### [facility] [address] [place] [address] CHEST WO CONon 0830-2022 CT CHEST WO CON EXAMINATION: CT CHES [...] ASAEL MALDONADO Date: 2022-03-07 09:42 Normal [facility] HEMOGLOBIN AND HEMATOCRITon 03-07-2022 Hematocrit (Bld) [Volume fraction] 31.8 % Critically low 36.0-48.0 [facility] Comment on above: Performed By: #### H GBHCT #### [facility] [address] [address] [address] Kayley Hatfield Hemoglobin (Bld) [Mass/Vol] 9.5 g/dL Critically low 12.0-16.0 [facility] Comment on above: Performed By: #### H GBHCT #### [facility] [address] [address] [address] Kayley Hatfield RETICULOCYTEon 03-07-2022 RETIC 1.92 % Normal 0.60-3.10 [facility] Comment on above: Performed By: #### O BSCRN #### [facility] [address] [address] [address] Kayley Hatfield XR CHEST 1 Von [...] ASAEL MALDONADO Date: 2022-03-07 12:54 Normal [facility] XR CHEST 1 V EXAM: [...] ASAEL MALDONADO Date: 2022-03-07 07:10 Normal [facility] BNPon 03-06-2022 Natriuretic peptide B (Bld) [Mass/Vol] 441.0 pg/mL Normal <=900.0 [facility] Comment on above: Performed By: #### H GBHCT #### [facility] [address] [address] [address] Kayley Hatfield CBC AUTO DIFFon 03-06-2022 BASO # 0.1 103/ul Normal 0.0-0.1 [facility] Comment on above: Performed By: #### O BSCRN #### [facility] [address] [place] [address] Dr. Kayley Hatfield Basophils/100 WBC (Bld) 0.7 % Normal 0.2-2.0 [facility] Comment on above: Performed By: #### O BSCRN #### [facility] [address] [place] [address] Dr. Kayley Hatfield EO # 0.1 103/ul Normal 0.0-0.7 [facility] Comment on above: Performed By: #### O BSCRN #### [facility] [facility] [address] [place] [address] Dr. Kayley Hatfield Eosinophils/100 WBC (Bld) 0.7 % Critically low 0.9-7.0 [facility] Comment on above: Performed By: #### O BSCRN #### [facility] [address] [place] [address] Dr. Kayley Hatfield Erythrocyte distribution width (RBC) [Ratio] 20.0 % Critically high 11.0-15.0 [facility] Comment on above: Performed By: #### O BSCRN #### [facility] [address] [place] [address] Dr. Kayley Hatfield Hematocrit (Bld) [Volume fraction] 20.1 % Critically low 36.0-48.0 [facility] Comment on above: Performed By: #### O BSCRN #### [facility] [address] [place] [address] Dr. Kayley Hatfield Hemoglobin (Bld) [Mass/Vol] 4.9 g/dL Critically low 12.0-16.0 [facility] Comment on above: Performed By: #### O BSCRN #### [facility] [address] [place] [address] Dr. Kayley Hatfield IG # 0.12 10e3/ul Critically high 0.00-0.03 [facility] Comment on above: Performed By: #### O BSCRN #### [facility] [address] [place] [address] Dr. Kayley Hatfield IG % 0.8 % Critically high 0.0-0.5 [facility] Comment on above: Performed By: #### O BSCRN #### [facility] [address] [address] [address] Kayley Hatfield LYMPH # 1.0 103/ul Critically low 1.2-3.8 [facility] Comment on above: Performed By: #### O BSCRN #### [facility] [address] [address] [address] Kayley Hatfield Lymphocytes/100 WBC (Bld) 6.5 % Critically low 20.5-60.0 [facility] Comment on above: Performed By: #### O BSCRN #### [facility] [address] [place] [address] Dr. Kayley Hatfield MANUAL DIFF REQ NO Normal [facility] Comment on above: Performed By: #### O BSCRN #### [facility] [address] [place] [address] Dr. Kayley Hatfield MCH (RBC) [Entitic mass] 15.2 pg Critically low 26.7-34.0 [facility] Comment on above: Performed By: #### O BSCRN #### [facility] [address] [place] [address] Dr. Kayley Hatfield MCHC (RBC) [Mass/Vol] 24.4 g/dL Critically low 29.9-35.2 [facility] Comment on above: Performed By: #### O BSCRN #### [facility] [address] [place] [address] Dr. Kayley Hatfield MCV (RBC) [Entitic vol] 62.2 fL Critically low 81.0-99.0 [facility] Comment on above: Performed By: #### O BSCRN #### [facility] [address] [place] [address] Dr. Kayley Hatfield MONO # 0.5 103/ul Normal 0.3-0.8 [facility] Comment on above: Performed By: #### O BSCRN #### [facility] [address] [place] [address] Dr. Kayley Hatfield Monocytes/100 WBC (Bld) 3.5 % Normal 1.7-12.0 [facility] Comment on above: Performed By: #### O BSCRN #### [facility] [address] [place] [address] Dr. Kayley Hatfield NEUT # 13.2 103/ul Critically high 1.4-6.5 [facility] Comment on above: Performed By: #### O BSCRN #### [facility] [address] [place] [address] Dr. Kayley Hatfield Neutrophils/100 WBC (Bld) 87.8 % Critically high 43.0-75.0 [facility] Comment on above: Performed By: #### O BSCRN #### [facility] [address] [place] [address] Dr. Kayley Hatfield Platelet mean volume (Bld) [Entitic vol] 9.1 fL Critically low 9.5-13.5 [facility] Comment on above: Performed By: #### O BSCRN #### [facility] [address] [place] [address] Dr. Kayley Hatfield PLT 384 103/ul Normal 150-450 [facility] Comment on above: Performed By: #### O BSCRN #### [facility] [address] [place] [address] Dr. Kayley Hatfield RBC 3.23 106/ul Critically low 4.20-5.40 [facility] Comment on above: Performed By: #### O BSCRN #### [facility] [address] [place] [address] Dr. Kayley Hatfield WBC 15.1 103/ul Critically high 4.0-11.0 [facility] Comment on above: Performed By: #### O BSCRN #### [facility] [address] [place] [address] Dr. Kayley Hatfield CULTURE BLOODon 03-06-2022 Microscopic examination of blood, culture Culture Observations: NO GROWTH AT 5 DAYS. Normal [facility] Comment on above: Performed By: #### C VDTBH #### [facility] [address] [place] [address] Dr. Kayley Hatfield Performed By: #### B [id number] #### [facility] [address] [place] [address] Dr. Kayley Hatfield Covid-19 PCR ([facility])on 02-07 SARS-CoV-2 (COVID-19) RNA ELBA+probe Ql (Unsp spec) Not detected Normal NOT DETECTED [facility] Comment on above: Result [...] this test is supported by the Supervisor [employer] of Health and Human Service's declaration that [...] used). Performed By: #### C VDTBH #### [facility] [address] [place] [address] Dr. Kayley Hatfield ER URINE PROFILEon Bilirubin Ql (U) Negative Normal NEGATIVE [facility] Comment on above: Performed By: #### P RBC #### [facility] [address] [place] [address] Dr. Kayley Hatfield Clarity (U) CLEAR Normal CLEAR [facility] Comment on above: Performed By: #### P RBC #### [facility] [address] [place] [address] Dr. Kayley Hatfield Color (U) LT. YELLOW Normal YELLOW [facility] Comment on above: Performed By: #### P RBC #### [facility] [address] [place] [address] Dr. Kayley [place] A micrscopic examination will be performed if indicated. Normal [facility] Comment on above: Performed By: #### P RBC #### [facility] [address] [place] [address] Dr. Kayley Hatfield Glucose Ql (U) Negative Normal NEGATIVE [facility] Comment on above: Performed By: #### P RBC #### [facility] [address] [place] [address] Dr. Kayley Hatfield Hemoglobin Ql (U) Negative Normal NEGATIVE [facility] Comment on above: Performed By: #### P RBC #### [facility] [address] [place] [address] Dr. Kayley Hatfield Ketones Ql (U) Negative Normal NEGATIVE [facility] Comment on above: Performed By: #### P RBC #### [facility] [address] [place] [address] Dr. Kayley Hatfiled LEUKOCYTES Negative Normal NEGATIVE [facility] Comment on above: Performed By: #### P RBC #### [facility] [address] [place] [address] Dr. Kayley Hatfield Nitrite Ql (U) Negative Normal NEGATIVE [facility] Comment on above: Performed By: #### P RBC #### [facility] [address] [place] [address] Dr. Kayley Hatfield pH (U) 6.0 [pH] Normal 5-9 [facility] Comment on above: Performed By: #### P RBC #### [facility] [address] [place] [address] Dr. Kayley Hatfield SPEC GRAVITY 1.010 Normal 1.005-<=1.025 [facility] Comment on above: Performed By: #### P RBC #### [facility] [address] [place] [address] Dr. Kayley Hatfield UA PROTEIN Negative Normal NEGATIVE/ TRACE [facility] Comment on above: Performed By: #### P RBC #### [facility] [address] [place] [address] Dr. Kayley Hatfield UR MICRO IND NOT INDICATED Normal [facility] Comment on above: Performed By: #### P RBC #### [facility] [address] [place] [address] Dr. Kayley Hatfield Urobilinogen Qn (U) 0.2 {Lu'U}/dL Normal 0.2 - 1. 0 [facility] Comment on above: Performed By: #### P RBC #### [facility] [address] [place] [address] Dr. Kayley Hatfield FERRITINon 03-06-2022 Ferritin [Mass/Vol] 4.0 ng/mL Critically low 8.0-252.0 [facility] Comment on above: Performed By: #### O BSCRN #### [facility] [address] [place] [address] Dr. Kayley Hatfield IRON AND TIBCon 03-06-2022 % SATURATION 2.3 % Normal [facility] Comment on above: Performed By: #### C VDTBH #### [facility] [address] [place] [address] Dr. Kayley Hatfield Iron [Mass/Vol] 12.0 ug/dL Critically low 50.0-170.0 [facility] Comment on above: Performed By: #### C VDTBH #### [facility] [address] [place] [address] Dr. Kayley Hatfield TIBC DIRECT 532.0 ug/dL Critically high 250.0-450.0 [facility] Comment on above: Performed By: #### C VDTBH #### [facility] [address] [place] [address] Dr. Kayley Hatfield OCC BLD IMMUNO SCREENon 02-07 OCCULT BLOOD Negative Normal NEGATIVE [facility] Comment on above: Performed By: #### O BSCRN #### [facility] [address] [place] [address] Dr. Kayley Hatfield PROF 14(COMP METB)on 022 Albumin [Mass/Vol] 3.6 g/dL Normal 3.4-5.0 [facility] Comment on above: Performed By: #### H GBHCT #### [facility] [address] [place] [address] Dr. Kayley Hatfield Albumin/Globulin [Mass ratio] 1.2 {ratio} Normal [facility] Comment on above: Performed By: #### H GBHCT #### [facility] [address] [place] [address] Dr. Kayley Hatfield ALP [Catalytic activity/Vol] 71 U/L Normal 46-116 [facility] Comment on above: Performed By: #### H GBHCT #### [facility] [address] [address] [address] Kayley Hatfield ALT [Catalytic activity/Vol] 20 U/L Normal 14-59 [facility] Comment on above: Performed By: #### H GBHCT #### [facility] [address] [place] [address] Dr. Kayley Hatfield Anion gap [Moles/Vol] 9.8 mmol/L Normal [facility] Comment on above: Performed By: #### H GBHCT #### [facility] [address] [address] [address] Kayley Hatfield AST [Catalytic activity/Vol] 12 U/L Critically low 15-37 [facility] Comment on above: Performed By: #### H GBHCT #### [facility] [address] [place] [address] Dr. Kayley Hatfield Bilirubin [Mass/Vol] 0.4 mg/dL Normal 0.2-1.0 [facility] Comment on above: Performed By: #### H GBHCT #### [facility] [address] [address] [address] Kayley Hatfield Calcium [Mass/Vol] 9.0 mg/dL Normal 8.5-10.1 [facility] Comment on above: Performed By: #### H GBHCT #### [facility] [address] [place] [address] Dr. Kayley Hatfield Chloride [Moles/Vol] 99 mmol/L Normal 98-107 [facility] Comment on above: Performed By: #### H GBHCT #### [facility] [address] [place] [address] Dr. Kayley Hatfield CO2 [Moles/Vol] 31.5 mmol/L Normal 21.0-32.0 [facility] Comment on above: Performed By: #### H GBHCT #### [facility] [address] [address] [address] Kayley Hatfield Creatinine [Mass/Vol] 0.89 mg/dL Normal 0.55-1.02 [facility] Comment on above: Performed By: #### H GBHCT #### [facility] [address] [address] [address] Kayley Hatfield EGFR-AF BRAZILIAN >60 Normal >=60 [facility] Comment on above: Performed By: #### H GBHCT #### [facility] [address] [place] [address] Dr. Kayley Hatfield EGFR-NON AF BRAZILIAN >60 Normal >=60 [facility] Comment on above: Performed By: #### H GBHCT #### [facility] [address] [address] [address] Kayley Hatfield Globulin (S) [Mass/Vol] 3.1 g/dL Normal [facility] Comment on above: Performed By: #### H GBHCT #### [facility] [address] [place] [address] Dr. Kayley Hatfield Glucose [Mass/Vol] 174 mg/dL Critically high 74-106 [facility] Comment on above: Performed By: #### H GBHCT #### [facility] [address] [address] [address] Kayley Hatfield Potassium [Moles/Vol] 4.3 mmol/L Normal 3.5-5.1 [facility] Comment on above: Performed By: #### H GBHCT #### [facility] [address] [place] [address] Dr. Kayley Hatfield Protein [Mass/Vol] 6.7 g/dL Normal 6.4-8.2 [facility] Comment on above: Performed By: #### H GBHCT #### [facility] [address] [place] [address] Dr. Kayley Hatfield Sodium [Moles/Vol] 136 mmol/L Normal 136-145 [facility] Comment on above: Performed By: #### H GBHCT #### [facility] [id number] Kayley Hatfield Urea nitrogen [Mass/Vol] 17.0 mg/dL Normal 7.0-18.0 [facility] Comment on above: Performed By: #### H GBHCT #### [facility] [id number] Kayley Hatfield Urea nitrogen/Creatinine [Mass ratio] 19.1 mg/mg Normal [facility] Comment on above: Performed By: #### H GBHCT #### [facility] [id number] Kayley Hatfield TROPONIN, HIGH SENSITIVITYon 03-06-2022 HSTROP 7.0 pg/mL Normal 4.0-51.3 [facility] Comment on above: Result Comment: CUT- OFF POINTS HAVE BEEN ESTABLISHED BASED ON THE FOURTH UNIVERSAL DEFINITIONS OF MYOCARDIAL INFARCTION. THE UPPER REFERENCE LIMIT (URL) OF TROPONIN, DEFINED THE 99TH PERCENTILE OF cTnI DISTRIBUTION IN A REFERENCE POPULATION, HAS BEEN CONFIRMED THE DECISION THRESHOLD FOR [place] DIAGNOSIS. Performed By: #### H GBHCT #### [facility] [id number] Kayley Hatfield TYPE AND SCREENon 03-06-2022 TYPE AND SCREEN Negative Normal [facility] Comment on above: Performed By: #### C VDTBH #### [facility] [id number] Kayley Hatfield XR CHEST 1 Von [...] MIGUE REYNOSO Date: 2022-03-06 16:10 Normal [facility] XR CHEST 1 V EXAMINATION: [...] MIGUE REYNOSO Date: 2022-03-06 14:39 Normal [facility] XR DEXA BONE DENSITYon 12-22 [...] -15.3% change since prior study. IMPRESSION: [employer] Classification: Osteoporosis - High Fracture Risk Electronically authenticated by: MIGUE REYNOSO Date: 2021-12-22 17:05 Normal [facility] CARDIAC ABDIAZIZ ADMITon 022 CK [Catalytic activity/Vol] 21 U/L Critically low 26-192 [facility] Comment on above: Performed By: #### B [id number] #### [facility] [address] [place] [address] Dr. Yilan Hatfield CK.MB [Mass/Vol] 1.00 ng/mL Normal <=3.60 [facility] Comment on above: Performed By: #### B LDCX1 #### [facility] [address] [place] [address] Dr. Kayley Hatfield HSTROP 11.6 pg/mL Normal 4.0-51.3 [facility] Comment on above: Result Comment: CUT- OFF POINTS HAVE BEEN ESTABLISHED BASED ON THE FOURTH UNIVERSAL DEFINITIONS OF MYOCARDIAL INFARCTION. THE UPPER REFERENCE LIMIT (URL) OF TROPONIN, DEFINED THE 99TH PERCENTILE OF cTnI DISTRIBUTION IN A REFERENCE POPULATION, HAS BEEN CONFIRMED THE DECISION THRESHOLD FOR [place] DIAGNOSIS. Performed By: #### B [id number] #### [facility] [address] [place] [address] Dr. Kayley Hatfield ROD 48 ng/mL Normal 9-82 [facility] Comment on above: Performed By: #### B [id number] #### [facility] [address] [place] [address] Dr. Kayley Hatfield CBC AUTO DIFFon 12-14-2021 BASO # 0.1 103/ul Normal 0.0-0.1 [facility] Comment on above: Performed By: #### P RBC #### [facility] [address] [place] [address] Dr. Kayley Hatfield Basophils/100 WBC (Bld) 0.9 % Normal 0.2-2.0 [facility] Comment on above: Performed By: #### P RBC #### [facility] [address] [place] [address] Dr. Kayley Hatfield EO # 0.1 103/ul Normal 0.0-0.7 [facility] Comment on above: Performed By: #### P RBC #### [facility] [address] [place] [address] Dr. Kayley Hatfield Eosinophils/100 WBC (Bld) 0.5 % Critically low 0.9-7.0 [facility] Comment on above: Performed By: #### P RBC #### [facility] [address] [place] [address] Dr. Kayley Hatfield Erythrocyte distribution width (RBC) [Ratio] 15.4 % Critically high 11.0-15.0 [facility] Comment on above: Performed By: #### P RBC #### [facility] [address] [place] [address] Dr. Kayley Hatfield Hematocrit (Bld) [Volume fraction] 29.3 % Critically low 36.0-48.0 [facility] Comment on above: Performed By: #### P RBC #### [facility] [address] [place] [address] Dr. Kayley Hatfield Hemoglobin (Bld) [Mass/Vol] 8.3 g/dL Critically low 12.0-16.0 [facility] Comment on above: Performed By: #### P RBC #### [facility] [address] [place] [address] Dr. Kayley Hatfield IG # 0.05 10e3/ul Critically high 0.00-0.03 [facility] Comment on above: Performed By: #### P RBC #### [facility] [address] [place] [address] Dr. Kayley Hatfield IG % 0.4 % Normal 0.0-0.5 [facility] Comment on above: Performed By: #### P RBC #### [facility] [address] [place] [address] Dr. Kayley Hatfield LYMPH # 1.2 103/ul Normal 1.2-3.8 [facility] Comment on above: Performed By: #### P RBC #### [facility] [address] [place] [address] Dr. Kayley Hatfield Lymphocytes/100 WBC (Bld) 10.6 % Critically low 20.5-60.0 [facility] Comment on above: Performed By: #### P RBC #### [facility] [address] [place] [address] Dr. Kayley Hatfield MANUAL DIFF REQ NO Normal [facility] Comment on above: Performed By: #### P RBC #### [facility] [address] [place] [address] Dr. Kayley Hatfield MCH (RBC) [Entitic mass] 21.4 pg Critically low 26.7-34.0 [facility] Comment on above: Performed By: #### P RBC #### [facility] [address] [address] [address] Kayley Hatfield MCHC (RBC) [Mass/Vol] 28.3 g/dL Critically low 29.9-35.2 [facility] Comment on above: Performed By: #### P RBC #### [facility] [address] [address] [address] Kayley Hatfield MCV (RBC) [Entitic vol] 75.5 fL Critically low 81.0-99.0 [facility] Comment on above: Performed By: #### P RBC #### [facility] [address] [place] [address] Dr. Kayley Hatfield MONO # 0.9 103/ul Critically high 0.3-0.8 [facility] Comment on above: Performed By: #### P RBC #### [facility] [address] [place] [address] Dr. Kayley Hatfield Monocytes/100 WBC (Bld) 7.6 % Normal 1.7-12.0 [facility] Comment on above: Performed By: #### P RBC #### [facility] [address] [place] [address] Dr. Kayley Hatfield NEUT # 9.2 103/ul Critically high 1.4-6.5 [facility] Comment on above: Performed By: #### P RBC #### [facility] [address] [place] [address] Dr. Kayley Hatfield Neutrophils/100 WBC (Bld) 80.0 % Critically high 43.0-75.0 [facility] Comment on above: Performed By: #### P RBC #### [facility] [address] [place] [address] Dr. Kayley Hatfield Platelet mean volume (Bld) [Entitic vol] 9.3 fL Critically low 9.5-13.5 [facility] Comment on above: Performed By: #### P RBC #### [facility] [address] [place] [address] Dr. Kayley Hatfield PLT 498 103/ul Critically high 150-450 [facility] Comment on above: Performed By: #### P RBC #### [facility] [address] [place] [address] Dr. Kayley Hatfield RBC 3.88 106/ul Critically low 4.20-5.40 [facility] Comment on above: Performed By: #### P RBC #### [facility] [address] [address] [address] Kayley Hatfield WBC 11.5 103/ul Critically high 4.0-11.0 [facility] Comment on above: Performed By: #### P RBC #### [facility] [address] [place] [address] Dr. Kayley Hatfield ER URINE PROFILEon 2 Bilirubin Ql (U) Negative Normal NEGATIVE [facility] Comment on above: Performed By: #### H GBHCT #### [facility] [address] [place] [address] Dr. Kayley Hatfield Clarity (U) CLEAR Normal CLEAR [facility] Comment on above: Performed By: #### H GBHCT #### [facility] [address] [place] [address] Dr. Kayley Hatfield Color (U) LT. YELLOW Normal YELLOW [facility] Comment on above: Performed By: #### H GBHCT #### [facility] [address] [place] [address] Dr. Kayley Hatfield ERUAHD A micrscopic examination will be performed if indicated. Normal [facility] Comment on above: Performed By: #### H GBHCT #### [facility] [address] [place] [address] Dr. Kayley Hatfield Glucose Ql (U) Negative Normal NEGATIVE [facility] Comment on above: Performed By: #### H GBHCT #### [facility] [address] [place] [address] Dr. Kayley Hatfield Hemoglobin Ql (U) TRACE-INTACT Abnormal NEGATIVE [facility] Comment on above: Performed By: #### H GBHCT #### [facility] [address] [place], [place] [id number] Dr. Kayley Hatfield Ketones Ql (U) Negative Normal NEGATIVE [facility] Comment on above: Performed By: #### H GBHCT #### [facility] [address] [address] [address] Kayley Hatfield LEUKOCYTES Negative Normal NEGATIVE [facility] Comment on above: Performed By: #### H GBHCT #### [facility] [address] [address] [address] Kayley Hatfield Nitrite Ql (U) Negative Normal NEGATIVE [facility] Comment on above: Performed By: #### H GBHCT #### [facility] [address] [address] [address] Kayley Hatfield pH (U) 6.5 [pH] Normal 5-9 [facility] Comment on above: Performed By: #### H GBHCT #### [facility] [address] [place] [address] Dr. Kayley Hatfield SPEC GRAVITY 1.015 Normal 1.005-<=1.025 [facility] Comment on above: Performed By: #### H GBHCT #### [facility] [address] [address] [address] Kayley Hatfield UA PROTEIN Negative Normal NEGATIVE/ TRACE [facility] Comment on above: Performed By: #### H GBHCT #### [facility] [address] [place] [address] Dr. Kayley Hatfield UR MICRO IND INDICATED Normal [facility] Comment on above: Performed By: #### H GBHCT #### [facility] [address] [place] [address] Dr. Kayley Hatfield Urobilinogen Qn (U) 0.2 {Lu'U}/dL Normal 0.2 - 1. 0 [facility] Comment on above: Performed By: #### H GBHCT #### [facility] [address] [place] [address] Dr. Kayley Hatfield PROF 14(COMP METB)on 022 Albumin [Mass/Vol] 3.2 g/dL Critically low 3.4-5.[address] [facility] Comment on above: Performed By: #### B LDCX1 #### [facility] [address] [address] [address] Kayley Hatfield Albumin/Globulin [Mass ratio] 0.8 {ratio} Normal [facility] Comment on above: Performed By: #### B LDCX1 #### [facility] [address] [address] [address] Kayley Hatfield ALP [Catalytic activity/Vol] 72 U/L Normal 46-116 [facility] Comment on above: Performed By: #### B LDCX1 #### [facility] [address] [address] [address] Kayley Hatfield ALT [Catalytic activity/Vol] 24 U/L Normal 14-59 [facility] Comment on above: Performed By: #### B LDCX1 #### [facility] [address] [place] [address] Dr. Kayley Hatfield Anion gap [Moles/Vol] 13.0 mmol/L Normal [facility] Comment on above: Performed By: #### B LDCX1 #### [facility] [address] [place] [address] Dr. Kayley Hatfield AST [Catalytic activity/Vol] 18 U/L Normal 15-37 [facility] Comment on above: Performed By: #### B LDCX1 #### [facility] [address] [address] [address] Kayley Hatfield Bilirubin [Mass/Vol] 0.3 mg/dL Normal 0.2-1.0 [facility] Comment on above: Performed By: #### B LDCX1 #### [facility] [address] [address] [address] Kayley Hatfield Calcium [Mass/Vol] 9.9 mg/dL Normal 8.5-10.1 [facility] Comment on above: Performed By: #### B LDCX1 #### [facility] [address] [address] [address] Kayley Hatfield Chloride [Moles/Vol] 98 mmol/L Normal 98-107 [facility] Comment on above: Performed By: #### B LDCX1 #### [facility] [address] [address] [address] Kayley Hatfield CO2 [Moles/Vol] 29.8 mmol/L Normal 21.0-32.0 [facility] Comment on above: Performed By: #### B LDCX1 #### [facility] [address] [address] [address] Kayley Hatfield Creatinine [Mass/Vol] 1.23 mg/dL Critically high 0.55-1.02 [facility] Comment on above: Performed By: #### B LDCX1 #### [facility] [address] [address] [address] Kayley Hatfield EGFR-AF BRAZILIAN 53 mL/min/1.73m2 Critically low >=60 [facility] Comment on above: Performed By: #### B LDCX1 #### [facility] [address] [address] [address] Kayley Hatfield EGFR-NON AF BRAZILIAN 44 mL/min/1.73m2 Critically low >=60 [facility] Comment on above: Performed By: #### B LDCX1 #### [facility] [address] [address] [address] Kayley Hatfield Globulin (S) [Mass/Vol] 3.9 g/dL Normal [facility] Comment on above: Performed By: #### B [id number] #### [facility] [address] [address] [address] Kayley Hatfield Glucose [Mass/Vol] 160 mg/dL Critically high 74-106 [facility] Comment on above: Performed By: #### B LDCX1 #### [facility] [address] [address] [address] Kayley Hatfield Potassium [Moles/Vol] 3.8 mmol/L Normal 3.5-5.1 [facility] Comment on above: Performed By: #### B LDCX1 #### [facility] [address] [address] [address] Kayley Hatfield Protein [Mass/Vol] 7.1 g/dL Normal 6.4-8.2 [facility] Comment on above: Performed By: #### B LDCX1 #### [facility] [address] [place] [address] Dr. Kayley Hatfield Sodium [Moles/Vol] 137 mmol/L Normal 136-145 [facility] Comment on above: Performed By: #### B LDCX1 #### [facility] [address] [place] [address] Dr. Kayley Hatfield Urea nitrogen [Mass/Vol] 20.0 mg/dL Critically high 7.0-18.0 [facility] Comment on above: Performed By: #### B LDCX1 #### [facility] [address] [place] [address] Dr. Kayley Hatfield Urea nitrogen/Creatinine [Mass ratio] 16.3 mg/mg Normal [facility] Comment on above: Performed By: #### B LDCX1 #### [facility] [address] [place] [address] Dr. Kayley Hatfield TROPONIN, HIGH SENSITIVITYon 12-14-2021 HSTROP 11.3 pg/mL Normal 4.0-51.3 [facility] Comment on above: Result Comment: CUT- OFF POINTS HAVE BEEN ESTABLISHED BASED ON THE FOURTH UNIVERSAL DEFINITIONS OF MYOCARDIAL INFARCTION. THE UPPER REFERENCE LIMIT (URL) OF TROPONIN, DEFINED THE 99TH PERCENTILE OF cTnI DISTRIBUTION IN A REFERENCE POPULATION, HAS BEEN CONFIRMED THE DECISION THRESHOLD FOR [place] DIAGNOSIS. Performed By: #### P RTELEC #### [facility] [address] [place] [address] Dr. Kayley Hatfield URINE MICROSCOPIC ONLYon BACTERIA NONE SEEN Normal NONE SEEN [facility] Comment on above: Performed By: #### H GBHCT #### [facility] [address] [place] [address] Dr. Kayley Hatfield Bacteria identified Cx Nom (U) NOT INDICATED Normal [facility] Comment on above: Performed By: #### H GBHCT #### [facility] [address] [place] [address] Dr. Kayley Hatfield CAST SEEN Abnormal NONE SEEN [facility] Comment on above: Performed By: #### H GBHCT #### [facility] [address] [place] [address] Dr. Kayley Hatfield Crystals LM Nom (Urine sed) NONE SEEN Normal NONE SEEN [facility] Comment on above: Performed By: #### H GBHCT #### [facility] [address] [address] [address] Kayley Hatfield Epithelial cells LM Ql (Urine sed) FEW Abnormal NONE SEEN /RARE [facility] Comment on above: Performed By: #### H GBHCT #### [facility] [address] [place] [address] Dr. Kayley Hatfield HYALINE CAST RARE Normal [facility] Comment on above: Performed By: #### H GBHCT #### [facility] [address] [place] [address] Dr. Kayley Hatfield MUCOUS NONE SEEN Normal NONE SEEN [facility] Comment on above: Performed By: #### H GBHCT #### [facility] [address] [place] [address] Dr. Kayley Hatfield RBC 0-2 Normal 0-2 [facility] Comment on above: Performed By: #### H GBHCT #### [facility] [address] [place] [address] Dr. Kayley Hatfield WBC 0-2 Abnormal NONE SEEN [facility] Comment on above: Performed By: #### H GBHCT #### [facility] [address] [place] [address] Dr. Kayley Hatfield XR CHEST 1 Von [...] by: ASAEL MALDONADO Date: 2021-12-14 13:43 Normal [facility] BUNon 12-12-2021 Urea nitrogen [Mass/Vol] 15.0 mg/dL Normal 7.0-18.0 [facility] Comment on above: Performed By: #### P RBC #### [facility] [address] [address] [address] Kayley Hatfield CALCIUMon 12-12-2021 Calcium [Mass/Vol] 9.1 mg/dL Normal 8.5-10.1 [facility] Comment on above: Performed By: #### C VDTBH #### [facility] [address] [address] [address] Kayley Hatfield CREATININEon 12-12-2021 Creatinine [Mass/Vol] 1.05 mg/dL Critically high 0.55-1.02 [facility] Comment on above: Performed By: #### P RBC #### [facility] [address] [place] [address] Dr. Kayley Hatfield EGFR-AF BRAZILIAN >60 Normal >=60 [facility] Comment on above: Performed By: #### P RBC #### [facility] [address] [place] [address] Dr. Kayley Hatfield EGFR-NON AF BRAZILIAN 53 mL/min/1.73m2 Critically low >=60 [facility] Comment on above: Performed By: #### P RBC #### [facility] [address] [place] [address] Dr. Kayley Hatfield CRPon 12-12-2021 CRP [Mass/Vol] mg/L Normal <=1.0 [facility] Comment on above: Performed By: #### P RBC #### [facility] [address] [place] [address] Dr. Kayley Hatfield MAGNESIUMon 12-12-2021 Magnesium [Mass/Vol] 1.9 mg/dL Normal 1.8-2.4 [facility] Comment on above: Performed By: #### C VDTBH #### [facility] [address] [place] [address] Dr. Kayley Hatfield PHOSPHORUSon 12-12-2021 Phosphate [Mass/Vol] 4.1 mg/dL Normal 2.6-4.7 [facility] Comment on above: Performed By: #### C VDTBH #### [facility] [address] [address] [address] Kayley Hatfiled SED RATE [facility] 2021 SED RATE 35 mm/hr Critically high <=30 [facility] Comment on above: Performed By: #### P RTELEC #### [facility] [address] [address] [address] Kayley Hatfield Vital Signs Date Time Vital Sign Value Performing Clinician Faci lity 06-26-2023 15:27-0500 Diastolic blood pressure 103 mm[Hg] MD Erasto Bruroughs Work Phone: [facility] 06-26-2023 15:27-0500 Heart rate 81 /min MD Erasto Burroughs Work Phone: [facility] 06-26-2023 15:27-0500 Respiratory rate 18 /min MD Erasto Burroughs Work Phone: [facility] 06-26-2023 15:27-0500 SaO2% (BldA) [Mass fraction] 95 % MD Erasto Burroughs Work Phone: [facility] 06-26-2023 15:27-0500 Systolic blood pressure 162 mm[Hg] MD Erasto Burroughs Work Phone: [facility] 06-26-2023 13:44-0500 Body height 162.56 cm MD Erasto Burroughs Work Phone: [facility] 06-26-2023 13:44-0500 Body weight 59.87 kg MD Erasto Burroughs Work Phone: [facility] 06-26-2023 13:44-0500 Inhaled oxygen flow rate 2 L/min MD Erasto Burroughs Work Phone: [facility] Encounters Encounter Date Encounter Type Care Provider Facility Start: 05-12-2024 ambulatory Ihsan Smiley ty:[facility] Start: 02-21-2024 End: 02-21-2024 ambulatory ERASTO BURROUGHS Not Available Start: 01-07-2024 End: 01-07-2024 ambulatory [facility] Start: 11-09-2023 End: 11-10-2023 ambulatory Ihsan BROWN Facility:[facility] Start: 08-18-2023 Navjot Leggett Work Phone: [facility] Comment on above: DDD (degenerative di sc disease), lumbar (Primary Dx) Start: 06-27-2023 ambulatory [facility] Start: 06-26-2023 End: 06-26-2023 ambulatory Remy Givens Facility:[facility] Start: 06-26-2023 End: 06-26-2023 Admission to same day surgery center MD Erasto Burroughs Work Phone: [facility] Work Phone: Start: 06-26-2023 End: 06-26-2023 ambulatory MD Erasto Burroughs Work Phone: [facility] Work Phone: Start: 06-14-2023 End: 06-14-2023 ambulatory SHAIKH WILMERROMY Not Available Start: 06-05-2023 Evaluation and management of inpatient KONG BEAULIEU [facility] Start: 06-05-2023 Evaluation and management of inpatient NOORALDIN [facility] Start: 06-05-2023 [facility] management [facility] Start: 06-04-2023 End: 06-06-2023 Evaluation and management of inpatient AVINASH SERRANO [facility] Start: 05-15-2023 ambulatory Iman Jeter Facility:[facility] [...] without abnormal findings DR ERASTO BURROUGHS [facility] Start: 03-30-[address] ERASTO BURROUGHS Facil ity:[facility] Start: 03-29-2022 Encounter for genera l adult medical examination without abnormal findings DR ERASTO BURROUGHS [facility] Start: 03-28-2022 End: 03-30-2022 Evaluation and management of inpatient DR ERASTO BURROUGHS Facility:[facility] Start: 03-28-2022 End: 03-29-[address] ERASTO BURROUGHS Facility:[facility] Start: 03-28-2022 End: 03-29-2022 Encounter for general adult medical examination without abnormal findings DR ERASTO BURROUGHS Facility:[facility] Start: 03-08-2022 End: 03-15-2022 Evaluation and management of inpatient IMAN WILLIS Facility:[facility] Start: 03-06-2022 End: 03-08-2022 Evaluation [...] 09-05-2023 Hemoglobin A1c measurement Diabetes: Hemoglobin A1C [facility] Start: 08-27-2023 End: 08-27-2023 Patient encounter procedure 08/27/2023 2:30 PM EST Office Visit [facility] [address] [place] [id number] Erasto Burroughs MD [address] [place] [phone] [facility] Start: 06-26-2023 [facility] Start: 03-09-2023 Influenza vaccination Influenza Vacc ine (#1) [facility] Start: 1997 Screening for malign ant neoplasm of breast Mammogram [facility] Start: 1976 Urine screening for protein Diabetes: Urine Protein Screening [facility] Start: 1967 Glaucoma screening Diabetes: R etinopathy Screening [facility] Start: 1957 Screening for malign ant neoplasm of colon [facility] Patient Education Esophageal Dilation [facility] Work Phone: Payers Date Payer Category Payer Medicare [id number] 2023 Self-pay [id number] 2022 Unknown [employer] [id number] 2022-Present [phone] [address] [address] [place] [address] [id number] 2013 Medicare MEDICARE MEDICAR E PART B [id number] 2013-[place] [address] Medicare [id number] 1959 Medicare [id number] 1959 Unknown [id number] 1959 Unknown [id number] 1957 Unknown [id number] 2.16.840.1.128078.3.579.2.64 7 1957 Unknown [id number] 2.16.840.1.666098.3.579.2.59 3 1957 Unknown [id number] 2.16.840.1.444230.3.579.2.59 3 1957 Unknown [id number] 2.16.840.1.460070.3.579.2.59 3 1957 Unknown [id number] 2.16.840.1.658367.3.579.2.59 3 1957 Unknown [id number] 2.16.840.1.351327.3.579.2.59 3 1957 Unknown [id number] 2.16.840.1.742328.3.579.2.59 3 1957 Unknown [id number] 2.16.840.1.778086.3.579.2.59 3 1957 Unknown [id number] 2.16.840.1.830817.3.579.2.59 3 1957 Unknown [id number] 2.16.840.1.929180.3.579.2.59 3 1957 Unknown [id number] 2.16.840.1.552788.3.579.2.59 3 1957 Unknown [id number] 2.16.840.1.724935.3.579.2.59 3 1957 Unknown [id number] 2.16.840.1.352791.3.579.2.59 3 1957 Unknown [id number] 2.16.840.1.307841.3.579.2.59 3 1957 Unknown [id number] 2.16.840.1.955816.3.579.2.72 7 1957 Unknown [id number] 2.16.840.1.838421.3.579.2.72 7 1957 Unknown [id number] 2.16.840.1.869686.3.579.2.72 7 1957 Unknown [id number] 2.16.840.1.688427.3.579.2.72 7 1957 Unknown [id number] 2.16.840.1.718878.3.579.2.12 59 1957 Unknown [id number] 2.16.840.1.620638.3.579.2.12 59 Unknown [id number] 2.16.840.1.315391.3.579.2.53 1 Social History Date Type Detail Facility Start: 06-14-2023 End: 06-26-2023 Tobacco smoking status SDIS Ex-smoker (finding) [facility] Start: 1955 Sex Assigned At Female F [facility] End: 03-06-2022 History of tobacco use Current smoker [facility] End: 03-06-2022 History of tobacco use [...] Date & Type Note Facility 01-07-2024 Note [facility] Subjective Lise Canales is a 68 y.o. year old female patient being seen for 6 mo follow up CAD and hypertension. She was admitted to [facility] 2 weeks ago for severe sepsis [...] Prior additional history: She was admitted to [facility] in 10/2017 with sudden onset symptoms [...] smoking. On 06/04/2023 she was admitted to [facility] transferred from the [facility] due to pneumonia. In that setting she was found to have minimally elevated troponin. Her echocardiogram and EKG were nonrevealing. She was discharged on medical therapy. In December 2023 she was admitted to the [facility] with pneumonia and sepsis. In that [...] respiratory distress. Breath (more content not included)... [facility] 06-27-2023 Note [facility] Subjective Lise Canales is a 68 y.o. year old female patient being seen for follow up [facility] for NSTEMI. Denies chest pain, [...] Prior additional history: She was admitted to [facility] in 10/2017 with sudden onset symptoms [...] smoking. On 06/04/2023 she was admitted to [facility] transferred from the [facility] due to pneumonia. In that [...] Judgment normal. All (more content not included)... [facility] 06-26-2023 Procedure note [facility] 06-06-2023 Note Hospital Medicine Discharge Summary Final Discharge Diagnosis: Community acquired pneumonia of right lower lobe of lung Admission Diagnosis: NSTEMI (non-ST elevated myocardial infarction) ([facility]) [I21.4] Hospital course: 68 years old female lady with a medical history of hypertension, hyperlipidemia, gastroesophageal reflux disease, carotid disease, fibromyalgia, arthritis, polymyalgia rheumatica, COPD, temporal arteritis, and psoriasis. Came into the [facility] ER as a transfer from [facility] for concern of chest pain [...] Center 06/27/2023 3:45 PM Jer Neff MD [facility] Your medication list START taking these medications [...] HYDROcodone-acetaminophen 5-325 mg tablet Commonly known as: [place] melatonin 5 mg tablet metoprolol tartrate 25 [...] Your Medications These medications were sent to [id number] [id number] cefdinir 300 mg capsule doxycycline 100 mg capsule Lise is allergic to azithromycin and latex. Disposition: [place]-[facility] [place] [facility] [place] Condition: Stable Code Status: Prior Diagnostic [...] rhythm. Lungs: C (more content not included)... [facility] 06-06-2023 Note 06/06/23 1019 Referral Data Referral Source [employer] worker Activities of Daily Living Communication Talks;Understands speaking Discharge Planning Support Systems Spouse/significant other Patient's goal for discharge home Screened by [facility]; no social work needs at this time [facility] 06-05-2023 Note 06/05/23 1505 Admission Assessment Questions [...] Discharge? Yes Does the patient have a returned case inspector assigned to them through their insurance? Yes [...] link and activate MyChart? MyChart already active [facility] 06-05-2023 Note . Hospital Medicine History and Physical 06/05/2023 1:22 AM THE HOSPITALIST TEAM PREFERS TO USE [employer] FOR COMMUNICATION 7AM-7PM. IF I DO NOT RESPOND WITHIN 15 MINUTES, PLEASE PAGE ME/CALL THROUGH THE WAREHOUSE RECEIVING SUPERVISOR. FROM 7PM-7AM, PLEASE PAGE [phone](COVR) Chief Complaint No chief complaint on file. History of Present Illness Lise Canales is an 68 y.o. female who came from home with NSTEMi. This is a 68 years old female lady with a medical history of hypertension, hyperlipidemia, gastroesophageal reflux disease, carotid disease, fibromyalgia, arthritis, polymyalgia rheumatica, COPD, temporal arteritis, and psoriasis. Came into the [facility] ER as a transfer from [facility] for concern of chest pain [...] Date Noted NSTEMI (non-ST elevated myocardial infarction) ([facility]) 06/05/2023 Acute on chronic respiratory failure with hypoxia ([facility]) 04/01/2022 Anemia, unspecified 04/01/2022 Recurrent spontaneous pneumothorax 03/30/2022 Giant cell arteritis with polymyalgia rheumatica ([facility]) 10/11/2021 Pneumothorax on left 08/02/2016 Coronary atherosclerosis 06/15/2014 Dyslipidemia 06/15/2014 Status post percutaneous transluminal coronary angioplasty 06/15/2014 Angina pectoris ([facility]) 05/04/2014 Electrocardiogram abnormal 05/04/2014 Abdominal pain 04/24/2014 Altered mental status 04/24/2014 Benign essential hypertension 04/24/2014 Congestive heart failure ([facility]) 04/24/2014 Dyspnea 04/24/2014 Gastroesophageal reflux disease 04/24/2014 History of psychiatric disorder 04/24/2014 Hyperlipidemia 04/24/2014 Headache 04/24/2014 Raynaud's disease 04/24/2014 Other and unspecified noninfectious gastroenteritis and colitis(558.9) 05/15/2007 Candidiasis of mouth 04/17/2007 COPD (chronic obstructive pulmonary disease) ([facility]) 04/17/2007 Diarrhea 04/17/2007 Loss of weight 04/17/2007 Other psoriasis 04/17/2007 Psoriatic arthropathy ([facility]) 04/17/2007 Other pneumothorax 03/30/2022 Assessment and [...] over 92 -Scheduled (more content not included)... [facility] 03-15-2022 Note MR#: [id number] I [facility] Pt. Name: Lise Canales Admitted: 03/08/2022 Discharged: [...] a 66-year-old female, who presented to the [facility] with shortness of breath and [...] The patient was subsequently transferred to for [facility] for further workup, was admitted [...] Penn MD Date Trans: 03/15/2022 04:48 P/gabriela [id number] cc: Erasto Burroughs M.D. [address] [place] [address] The [facility] 03-13-2022 Note MR#: [id number] I [facility] Pt. Name: Covert, Lise M Admitted: 03/08/2022 Discharged: 03/13/2022 Date of : [...] ___ Oli Pineda MD Date Dict: 03/13/2022/10:09 Deandre/Oli Pineda MD Date Trans: 03/13/2022 10:30 Deandre/gabriela [id number] cc: Erasto Burroughs M.D. [address] [place] [address] The [facility] 03-09-2022 Note MR#: [id number] I [facility] Pt. Name: Lise Canales Admitted: 03/05/2020 Discharged: [...] gastritis, Helicobacter pylori infection, who presented to [facility] Emergency Department complaining of sudden [...] appointment with the primary care provider through [facility] for close followup for her anxiety and [...] 2 to 4 weeks. Follow up at [facility] on 03/16/2022 at 9:50 a.m. [...] from me. Date Dict: 03/08/2022/03:04 P/Paulette Mccord, [facility] Date Trans: 03/09/2022 11:21 A/gabriela [id number] cc: Marti Poole M.D. [address] [facility] [id number] Erasto Burroughs M.D. [address] [place] [address] The [facility] Evaluation note No assessment inform ation [facility] Work Phone: Evaluation note Diagnosis DDD (degenerative disc disease), lumbar- Primary Degeneration of lumbar or lumbosacral intervertebral disc documented in this encounter [facility] and physical note Author Remy Givens [facility] June 26, 2023 2:44pm Note Date/Time June 26, 2023 2:44pm [facility] [address] [place] [address] Gastroenterology H&P Signed Patient: Lise Canales MR#: [id number] : 1955 Acct:[id number] Age/Sex: 68 / F Adm Date: 3 Loc: Room: Type: [facility] Attending Dr: Remy Givens MD Copies to: [...] MD Documented By: Remy Givens MD 06/26/23 1447 Signed By: <Electronically signed by Remy Givens MD> 06/26/23 7466 [facility] Work Phone: Hospital Discharge instructions Additional [...] problems. -Follow up with PCP. -Office number [phone].[facility] Work Phone: Summary Purpose Family History [...] and content) DATE CREATED AUTHOR 04/11/2022 [facility] DATE CREATED AUTHOR AUTHOR'S ORGANIZ ATION 11/04/[address] [facility] DATE CREATED AUTHOR AUTHOR'S ORGANIZ ATION 07/10/2023 [facility] DATE CREATED AUTHOR AUTHOR'S ORGANIZ ATION 11/13/2023 [facility] DATE CREATED AUTHOR AUTHOR'S ORGANIZ ATION 02/14/2024 [facility] DATE CREATED AUTHOR AUTHOR'S ORGANIZ ATION 02/23/2024 [facility] d[facility] Specialists EPIC Care Teams (unrecognized sec tion and content) Team Status: Active Member Role Status Dates Erasto Burroughs MD Primary Care Provider Active Team Status: Inactive Member Role Status Dates Erasto Burroughs MD Primary Care Provider Active Remy Givens MD Attending Provider Active Diesel Technician Relationship Specialty Start Date End Date Erasto [...] BE BASED ON THE PRIMARY CLINICAL RECORDS. [employer] provides no warranty or guarantee of the accuracy or completeness of information in this document.
[2024-03-12 10:46] LABS: Estimated Average Glucose 192 mg/dL; Glycohemoglobin A1C 8.3 % (4.5-6.2)
== END 2024-03-11 14:23 | disposition home or self-care (01) ==
LOC: LAB 14:23
PROVIDERS: PCP Family Medicine; Visit Provider Family Medicine
DX: E11.65 Type 2 diabetes mellitus with hyperglycemia (principal)
CPT/HCPCS: 36415; 83036

== ENCOUNTER 2024-06-06 09:23 | Inpatient (IN) | payer OTHER, MEDICARE, SELFPAY ==
[2024-06-06] VITALS (30 sets, daily range): BP systolic 69–184; BP diastolic 51–111; PULSE 71–131; TEMP 36.3–37.1; O2SAT 85–99; BMI 20.3; BMI 19.6
--- NOTE | 2024-06-06 09:39 | ECG_ITS ---
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
--- NOTE | 2024-06-06 09:39 | XR_ITS ---
The [address] [address] Patient Name: SANDRA Easton COVERT MRN: [id number] date: 1955 Sex: F Assigned Patient Location: ER Current Patient Location: ER Accession/Order Number: [id number] Exam Date: 06/06/2024 10:00 Report Date: 06/06/2024 10:38 At the request of: HERMINIO MORALES Procedure: XR chest 1V EXAM: Portable chest REASON FOR EXAM: Shortness of breath. TECHNIQUE: A portable frontal view of the chest was obtained. COMPARISON: 02/14/2024. FINDINGS: The lungs are well-inflated. There is dense airspace consolidation in the right base. There are chronic changes in both lungs. The heart and mediastinum are grossly stable in appearance. There is no mass or pathologic adenopathy. Osseous structures are normal. XR/XR chest 1V IMPRESSION: Right-sided pneumonia. The appearance is not specific for any certain etiology. Electronically authenticated by: TYSHAWN AHN Date: 06/06/2024 10:38
--- NOTE | 2024-06-06 09:43 | ED_ITS ---
HPI HPI - General Adult General Chief complaint: Shortness of Breath/Dyspnea Stated complaint: SHORTNESS OF BREATH Time Seen by Provider: 06/06/24 09:28 History of Present Illness HPI narrative: 69-year-old female who presents to the emergency department for shortness of breath. It began today. Yesterday she states she felt well. Family states they checked her temperature at home and it was 101 degrees. She feels short of breath and has an area of pain on her right lower back. No injury. She did not use her nebulizer today. Exertion makes her shortness of breath worse. Related Data Home Medications ?Medication ?Instructions ?Recorded ?Confirmed aspirin 81 mg tablet,delayed 81 mg PO DAILY 03/06/23 02/18/24 release atorvastatin 40 mg tablet 40 mg PO .QHS 03/06/23 02/18/24 duloxetine 30 mg capsule,delayed 90 mg PO DAILY 03/06/23 02/18/24 release eszopiclone 3 mg tablet (Lunesta) 3 mg PO .QHS PRN sleep 03/06/23 02/18/24 melatonin 5 mg tablet 5 mg PO .QHS 03/06/23 02/18/24 metoprolol tartrate 25 mg tablet 12.5 mg PO BID 03/06/23 02/18/24 omeprazole 40 mg capsule,delayed 40 mg PO BID 03/06/23 02/18/24 release pregabalin 100 mg capsule (Lyrica) 100 mg PO TID 03/06/23 02/18/24 albuterol sulfate 90 mcg/actuation 2 puff inhalation Q4H PRN 12/18/23 02/18/24 aerosol inhaler shortness of breath or wheezing amlodipine 5 mg tablet 5 mg PO QAM 12/18/23 02/18/24 guaifenesin 600 mg tablet, 1,200 mg PO BID 12/18/23 02/18/24 extended release 12 hr prednisone 5 mg tablet 10 mg PO DAILY 12/18/23 02/18/24 cholecalciferol (vitamin D3) 50 50 mcg PO DAILY 02/14/24 02/18/24 mcg (2,000 unit) capsule cranberry 500 mg capsule 500 mg PO DAILY 02/14/24 02/18/24 ferrous sulfate 325 mg (65 mg 325 mg PO DAILY 02/14/24 02/18/24 iron) tablet potassium chloride 20 mEq 20 meq PO DAILY PRN hypokalemia 02/14/24 02/18/24 tablet,extended release Previous Rx's ?Medication ?Instructions ?Recorded levofloxacin 500 mg tablet 500 mg PO DAILY 7 days #7 tabs 02/16/24 Allergies Allergy/AdvReac Type Severity Reaction Status Date / Time azithromycin (From Zithromax Allergy Severe Unknown Verified 02/18/24 18:30 Z-Leonardo) Latex, Natural Rubber Allergy Severe Unknown Verified 02/18/24 18:30 Opioid HPI Opioid Management Most Recent Opioid Data: Last Pain Scale 5 02/18/24 20:11 02/18/24 Last Pain Intensity 0 03/06/23 15:53 03/06/23 Last ORT Total Score 1 02/14/24 16:21 02/14/24 Last ORT Risk Category Low Risk 02/14/24 16:21 02/14/24 Review of Systems ROS Narrative A ten point review of systems is negative except as noted above. [facility] Medical History (Updated 06/06/24 @ 11:13 by Matt Bond MD) Acute pyelonephritis ?N10 - Acute pyelonephritis (ICD-10) Sepsis ?A41.9 - Sepsis, unspecified organism (ICD-10) Immunosuppressed status ?D84.9 - Immunodeficiency, unspecified (ICD-10) Chronic steroid use Temporal arteritis ?M31.6 - Other giant cell arteritis (ICD-10) CKD stage 3b, GFR 30-44 ml/min ?N18.32 - Chronic kidney disease, stage 3b (ICD-10) Chronic respiratory failure with hypoxia ?J96.11 - Chronic respiratory failure with hypoxia (ICD-10) Acute on chronic respiratory failure with hypoxia ?J96.21 - Acute and chronic respiratory failure with hypoxia (ICD-10) History of tobacco abuse ?Z87.891 - Personal history of nicotine dependence (ICD-10) Acute exacerbation of chronic obstructive pulmonary disease (COPD) ?J44.1 - Chronic obstructive pulmonary disease with (acute) exacerbation (ICD-10) CAD (coronary artery disease) ?I25.10 - Atherosclerotic heart disease of [place] coronary artery without angina pectoris (ICD-10) Essential hypertension ?I10 - Essential (primary) hypertension (ICD-10) Type 2 diabetes mellitus with hyperglycemia ?E11.65 - Type 2 diabetes mellitus with hyperglycemia (ICD-10) Polymyalgia rheumatica ?M35.3 - Polymyalgia rheumatica (ICD-10) Non-ST elevated myocardial infarction (non-STEMI) ?I21.4 - Non-ST elevation (NSTEMI) myocardial infarction (ICD-10) Hyperlipidemia ?E78.5 - Hyperlipidemia, unspecified (ICD-10) Hyperglycemia, drug-induced ?R73.9 - Hyperglycemia, unspecified (ICD-10) ?T50.905A - Adverse effect of unspecified drugs, medicaments and biological substances, initial encounter (ICD-10) COPD (chronic obstructive pulmonary disease) ?J44.9 - Chronic obstructive pulmonary disease, unspecified (ICD-10) Depression ?F32.A - Depression, unspecified (ICD-10) Acid reflux ?K21.9 - Gastro-esophageal reflux disease without esophagitis (ICD-10) Nerve pain ?M79.2 - Neuralgia and neuritis, unspecified (ICD-10) Back pain ?M54.9 - Dorsalgia, unspecified (ICD-10) Thoracotomy scar of right chest ?L90.5 - Scar conditions and fibrosis of skin (ICD-10) History of oxygen administration ?Z99.81 - Dependence on supplemental oxygen (ICD-10) UTI (urinary tract infection), bacterial ?N39.0 - Urinary tract infection, site not specified (ICD-10) ?A49.9 - Bacterial infection, unspecified (ICD-10) Urethral stenosis 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 [part of] (ICD-10) Stented coronary artery ?Z95.5 - Presence of coronary angioplasty implant and graft (ICD-10) Family History Mother Family history of COPD (chronic obstructive pulmonary disease) Brother Family history of COPD (chronic obstructive pulmonary disease) Father Family history of COPD (chronic obstructive pulmonary disease) Family history of stroke Social History Within the past year, how often did you have a drink containing alcohol: never Within the past year, how many standard drinks containing alcohol did you have o n a typical day: 1 or 2 Within the past year, how often did you have six or more drinks on one occasion: never Total score: 0 Score interpretation: A score less than 3 is consistent with normal alcohol consumption. Smoking status: Former smoker Non-prescribed substance use: denies use Previous occupational history: disabled Highest level of school completed/degree received: Associate degree: academic program Are you now , , , , never or living with a partner: Little interest or pleasure in doing things: not at all Feeling down, depressed, or hopeless: not at all Feel stressed/tense/nervous/anxious/difficulty sleeping: only a little Do you think of yourself as: straight/heterosexual Gender Identity: female Exam Narrative Exam Narrative: Nurses note and vital signs reviewed and patient is not hypoxic. General: The patient appears dyspneic but is not in acute respiratory distress. Skin: Warm, dry, no pallor noted. There is no rash noted. Head: Normocephalic, atraumatic Eye: Normal conjunctiva, no drainage Ears, Nose, Mouth, and Throat: oral mucosa is moist. Nares patent. Cardiovascular: Regular Rate and Rhythm, tachycardic Respiratory: Breath sounds are diminished bilaterally with a few rhonchi. Breath sounds are equal. Back: non-tender, no CVA tenderness bilaterally to percussion. No bruise or rash on her right lower back. GI: Soft and nontender Musculoskeletal: The patient has no evidence of calf tenderness, no pitting edema, symmetrical pulses noted bilaterally Neurological: A&O, normal speech Psychiatric: Cooperative Constitutional Vital Signs, click to edit/add: Last Vital Signs Temp 98.7 F 06/06/24 09:36 Pulse 118 H 06/06/24 11:00 Resp 24 H 06/06/24 11:00 BP 69/55 L 06/06/24 11:00 Pulse Ox 90 L 06/06/24 11:00 O2 Del Method Nasal Cannula 06/06/24 10:20 O2 Flow Rate 2 06/06/24 10:20 Course Vital Signs Vital signs: Vital Signs Temperature 98.7 F 06/06/24 09:36 Pulse Rate 128 H 06/06/24 09:36 Respiratory Rate 24 H 06/06/24 09:36 Blood Pressure 184/89 H 06/06/24 09:36 Pulse Oximetry 92 L 06/06/24 09:36 Oxygen Delivery Method Nasal Cannula 06/06/24 09:36 Oxygen Delivery Flow Rate 2 06/06/24 09:36 Temperature 98.7 F 06/06/24 09:36 Pulse Rate 118 H 06/06/24 11:00 Respiratory Rate 24 H 06/06/24 11:00 Blood Pressure 69/55 L 06/06/24 11:00 Pulse Oximetry 90 L 06/06/24 11:00 Oxygen Delivery Method Nasal Cannula 06/06/24 10:20 Oxygen Delivery Flow Rate 2 06/06/24 10:20 Medical Decision Making MDM Narrative Medical decision making narrative: Right lower lobe pneumonia is identified on chest x-ray. Lactic acid is normal. Cultures were obtained and then she was given IV Levaquin. She is being admitted. Findings are discussed with the patient. COVID and influenza are negative. Differential Diagnosis Differential Diagnosis: COVID, influenza, pneumonia, URI, COPD exacerbation Lab Data Lab results reviewed: Yes I reviewed the patient's lab results Labs: Lab Results 06/06/24 06/06/24 Range/Units 10:00 10:14 WBC 15.9 H (4.0-11.0) 10^3/uL RBC 4.77 (4.20-5.40) 10^6/uL Hgb 14.8 (12.0-16.0) g/dL Hct 46.4 (36.0-48.0) % MCV 97.3 (81.0-99.0) fL MCH 31.0 (26.7-34.0) pg MCHC 31.9 (29.9-35.2) g/dL RDW 13.1 (11.0-15.0) % Plt Count 285 (150-450) 10^3/uL MPV 9.9 (9.5-13.5) fL Neut % (Auto) 85.4 H (43.0-75.0) % Lymph % (Auto) 7.4 L (20.5-60.0) % [place] % (Auto) 5.2 (1.7-12.0) % Eos % (Auto) 1.1 (0.9-7.0) % Baso % (Auto) 0.3 (0.2-2.0) % Neut # (Auto) 13.5 H (1.4-6.5) 10^3/uL Lymph # (Auto) 1.2 (1.2-3.8) 10^3/uL [place] # (Auto) 0.8 (0.3-0.8) 10^3/uL Eos # (Auto) 0.2 (0.0-0.7) 10^3/uL Baso # (Auto) 0.1 (0.0-0.1) 10^3/uL Abs Immat Gran (auto) 0.09 H (0.00-0.03) 10^3/uL Imm/Tot Granulo (auto) 0.6 H (0.0-0.5) % Sodium 139 (136-145) mmol/L Potassium 3.8 (3.5-5.1) mmol/L Chloride 103 (98-107) mmol/L Carbon Dioxide 24.0 (21.0-32.0) mmol/L Anion Gap 15.8 BUN 26.0 H (7.0-18.0) mg/dL Creatinine 1.55 H (0.55-1.02) mg/dL Est GFR ( Amer) 40 L (>=60 mL/min/1.73m^2) Est GFR (Non-Af Amer) 33 L (>=60 mL/min/1.73m^2) BUN/Creatinine Ratio 16.8 Glucose 174 H (74-106) mg/dL Lactate 1.9 (0.4-2.0) mmol/L Calcium 10.0 (8.5-10.1) mg/dL Troponin I High Sens 13.0 (4.0-51.3) pg/mL Influenza Type A Ag Negative Influenza Type B Ag Negative SARS-CoV-2 Ag (CV2AG) Negative (NEGATIVE) Imaging Data Chest x-ray: Radiologist's impression: ITS Impressions Chest X-Ray 06/06/24 09:39 IMPRESSION: Right-sided pneumonia. The appearance is not specific for any certain etiology. Electronically authenticated by: TYSHAWN AHN Date: 06/06/2024 10:38 ECG Data Attestation: I personally reviewed and interpreted this ECG as follows: (EKG on my interpretation shows sinus tachycardia with motion artifact) Discharge Plan Discharge Chief Complaint: Shortness of Breath/Dyspnea Clinical Impression: Right lower lobe pneumonia Patient Disposition: Admitted As Inpatient Time of Disposition Decision: 11:13 Condition: Fair Prescriptions / Home Meds: No Action atorvastatin 40 mg tablet 40 mg PO .QHS metoprolol tartrate 25 mg tablet 12.5 mg PO BID omeprazole 40 mg capsule,delayed release(DR/EC) 40 mg PO BID duloxetine 30 mg capsule,delayed release(DR/EC) 90 mg PO DAILY aspirin 81 mg tablet,delayed release (DR/EC) 81 mg PO DAILY eszopiclone [Lunesta] 3 mg tablet 3 mg PO .QHS PRN (Reason: sleep) melatonin 5 mg tablet 5 mg PO .QHS pregabalin [Lyrica] 100 mg capsule 100 mg PO TID potassium chloride 20 mEq tablet extended release 20 meq PO DAILY PRN (Reason: hypokalemia) ferrous sulfate 325 mg (65 mg iron) tablet 325 mg PO DAILY cranberry 500 mg capsule 500 mg PO DAILY Rx Instructions: administer with a meal cholecalciferol (vitamin D3) 50 mcg (2,000 unit) capsule 50 mcg PO DAILY levofloxacin 500 mg tablet 500 mg PO DAILY 7 Days Qty: 7 0RF albuterol sulfate 90 mcg/actuation HFA aerosol inhaler 2 puff INHALATION Q4H PRN (Reason: shortness of breath or wheezing) guaifenesin 600 mg tablet extended release 12hr 1,200 mg PO BID amlodipine 5 mg tablet 5 mg PO QAM prednisone 5 mg tablet 10 mg PO DAILY Print Language: Wolof Referrals: Erasto Henry MD [Primary Care Provider] - 1 week
--- OUTSIDE RECORDS SUMMARY | 2024-06-06 09:45 | XMS_ITS | CCD ---
Author Organization [facility] Care Team Providers Care Multimedia Artist Name Role Phone BALAJI IMAN Admitting Unavailable [...] SAMSA ., ISHAN Consulting Unavailable DORIS ., NACRISA Consulting Unavailable INGRAM, DREW Consulting Unavailable ADAMSON, [...] Consulting Unavailable SAMSA ., ISHAN Consulting Unavailable KLIPPER, ASAEL Consulting Unavailable SCHNERUTHIE, STEPHEN Consulting Unavailable [...] NADERER, DR ERASTO Carrera Primary Care Unavailable NADERETorri, DR ERASTO Carrera Attending Unavailable MD Erasto Burroughs Primary Care Provider [phone] MD Remy Givens Attending Provider [phone] Remy Givens Attending Unavailable Remy Givens Admitting Unavailable Naderetorri, Erasto Primary Care Unavailable Erasto Burrouhgs MD Primary Care Provider ROSA MARIA, NOORALDIN Referring Unavailable JER NEFF Attending Unavailable JER NEFF Attending Unavailable AVINASH SERRANO Referring Unavailable JAZMIN EALSEY Admitting Unavailable KONG BEAULIEU Attending Unavailable KONG BEAULIEU Referring Unavailable MERZA, NOORALDIN Referring Unavailable ROSA MARIA, NOORALDIN Referring Unavailable SHAIKH FINN Attending Unavailable ERASTO BURROUGHS Attending Unavailable Erasto Burroughs MD Primary Care Provider Ihsan BROWN Attending Unavailable Ihsan BROWN Attending Unavailable Ihsan BROWN Attending Unavailable Iman Jeter Attending Unavaila ble Allergies Allergy Classification Reported Allergen(s) Allergy Type Date of Onset Reaction(s) Facility (4 sources) Azithromycin; Translations: [AZITHROMYCIN] Drug Allergy 9 [facility] Repository (5 sources) Latex; Translations: [LATEX] Drug allergy (disorder) 7 [facility] Repository (1 source) Azithromycin Drug Allergy 2 [facility] Repository (1 source) Latex Drug allergy (disorder) 2 [facility] Repository (2 sources) Azithromycin Drug Allergy 3 [facility] (2 sources) Latex Allergy to substance 3 [facility] (1 source) Azithromycin; Translations: [Zithromax] Drug Allergy [facility] Repository Medications Current Medications Medication Drug [...] 2022 11:00pm arginine 500 mg oral tablet (2 sources) Start: 05-17-2023 take 1 tablet by mouth every twelve hours arginine 500 MG tablet Take 1 tablet by mouth every 12 (twelve) hours 05/17/2023 Active aspirin 81 mg delayed release oral tablet (2 sources) Platelet Aggregation Inhibitor, Nonsteroidal Anti-inflammatory Drug Start: 04-06-2022 take 81 mg by mouth once daily Aspirin Active 81 MG PO Daily April 05, 2022 11:00pm atorvastatin 40 mg oral tablet (1 source) HMG-CoA Reductase Inhibitor Start: 04-06-2022 take 40 mg by mouth once daily at bedtime Atorvastatin Active 40 MG PO Daily at bedtime April 05, 2022 11:00pm cholecalciferol 0.05 mg oral capsule (3 sources) Vitamin D Start: 06-26-2023 End: 06-26-2024 take 1 capsule by mouth once in the morning cholecalciferol (Vitamin D-3) 50 MCG (2000 UT) capsule Indications: Vitamin D deficiency Take 1 capsule (50 mcg) by mouth in the morning. 90 capsule 3 06/26/2023 06/26/2024 Active Start: 04-06-2022 take 50 ug by mouth once daily Cholecalciferol (Vitamin D3) Active 50 MCG PO Daily April 05, 2022 11:00pm clopidogrel 75 mg oral tablet (3 sources) [id number] Platelet Inhibitor Start: 04-06-2022 End: 06-26-2023 take 1 tablet by mouth in the morning clopidogrel (Plavix) 75 MG tablet Take 1 tablet by mouth in the morning. 07/17/2022 Active DULoxetine 30 mg delayed release oral capsule (3 sources) Serotonin and Norepinephrine Reuptake Inhibitor Start: 04-26-2023 take 3 capsules by mouth in the morning DULoxetine (Cymbalta) [address] capsule Take 3 capsules by mouth in the morning. 04/26/2023 Active Start: 04-06-2022 take 90 mg by mouth once daily Duloxetine Active 90 MG PO Daily April 05, 2022 11:00pm eszopiclone 3 mg oral tablet (3 sources) Start: 04-06-2022 take 1 tablet by mouth at bedtime eszopiclone (Lunesta) 3 MG tablet Take 1 tablet by mouth at bedtime 05/09/2023 Active furosemide 40 mg oral tablet (2 sources) Loop Diuretic Start: 05-30-2023 take 1 tablet by mouth every twenty-four hours as needed furosemide (Lasix) 40 MG tablet Take 1 tablet by mouth Daily as needed 05/30/2023 Active glipiZIDE 5 mg oral tablet (1 source) Sulfonylurea Start: 03-12-2024 take 1 tablet by mouth once daily glipiZIDE (Glucotrol) 5 MG tablet Indications: Type 2 diabetes mellitus with hyperglycemia, without long-term current use of insulin ([facility]) TAKE 1 TABLET(5 MG) BY MOUTH DAILY 90 tablet 3 03/12/2024 Active ipratropium bromide 0.2 mg/ml inhalation solution (2 sources) Anticholinergic ipratropium (Atrovent) 0.02 % nebulizer solution Take 0.5 mg by nebulization every 6 (six) hours Active 200 actuat levalbuterol 0.045 mg/actuat metered dose inhaler (2 sources) beta2-Adrenergic Agonist take 2 puff(s) by inhalation every four hours for wheezing levalbuterol (Xopenex HFA) 45 MCG/ACT inhaler Inhale 2 puffs every 4 (four) hours if needed for wheezing Active melatonin 5 mg oral tablet (1 source) Start: 04-06-2022 take 5 mg by mouth at bedtime Melatonin Active 5 MG PO Bedtime April 05, 2022 11:00pm metoprolol tartrate 25 mg oral tablet (3 sources) beta-Adrenergic Joslyn Start: 06-08-2023 take 0.5 tablet by mouth in the morning metoprolol tartrate (Lopressor) 25 MG tablet Take 0.5 tablets by mouth in the morning and 0.5 tablets before bedtime. 06/08/2023 Active Start: 04-06-2022 take 12.5 mg by mout h every twelve hours Metoprolol Tartrate Active 12.5 MG PO Q12H April 05, 2022 11:00pm omeprazole 40 mg delayed release oral capsule (2 sources) Proton Pump Inhibitor Start: 08-29-2023 End: 08-28-2024 take 1 capsule by mouth in the morning omeprazole (PriLOSEC) [address] capsule Indications: Hyponatremia Take 1 capsule (40 mg) by mouth in the morning and 1 capsule (40 mg) in the evening. Take before meals. 180 capsule 3 08/29/2023 08/28/2024 Active take 1 capsule by mouth before m ealtime omeprazole (PriLOSEC) [address] capsule Take 1 capsule by mouth in the morning. Take before meals. 0 Active ondansetron 4 mg disintegrating oral tablet (2 sources) Serotonin-3 Receptor Antagonist Start: 03-21-2023 take 1 tablet by mouth every six hours as needed ondansetron ODT (Zofran-ODT) 4 MG disintegrating tablet Take 1 tablet by mouth every 6 (six) hours if needed 03/21/2023 Active pantoprazole 40 mg delayed release oral tablet (1 source) Proton Pump Inhibitor Start: 04-06-2022 take 40 mg by mouth once daily Pantoprazole Active 40 MG PO Daily April 05, 2022 11:00pm potassium chloride 20 meq extended release oral tablet (2 sources) Start: 03-31-2024 take 1 tablet by mouth once daily as needed potassium chloride CR (K-Tab) 20 MEQ ER tablet Indications: Essential hypertension, benign (CMS/HCC) TAKE 1 TABLET BY MOUTH DAILY NEEDED 30 tablet 3 03/31/2024 Active Start: 05-30-2023 take 1 tablet by shayna th every twenty-four hours as needed potassium chloride CR (K-Tab) 20 MEQ ER tablet Take 1 tablet by mouth Daily as needed 0 05/30/2023 Active predniSONE 10 mg oral tablet (1 source) Start: 04-06-2022 take 10 mg by mouth once daily Prednisone Active 10 MG PO Daily April 05, 2022 11:00pm pregabalin 100 mg oral capsule (4 sources) Start: 10-16-2023 End: 04-30-2024 take 1 capsule by mouth three times daily pregabalin (Lyrica) 100 MG capsule Indications: DDD (degenerative disc disease), lumbar TAKE 1 CAPSULE BY MOUTH THREE TIMES DAILY 270 capsule 04/30/2024 Active Start: 08-20-2023 take 1 capsule by mo ut three times daily pregabalin (Lyrica) 100 MG [...] Active Problems Problem Classification Problem Date Documented Da te Episodic/Chronic Acute myocardial infarction (2 sources) Non-ST elevation (NSTEMI) myocardial infarction; Translations: [Non-ST elevation (NSTEMI) myocardial infarction] Onset: 06-04-2023 Chronic Chronic obstructive pulmonary disease and bronchiectasis (5 sources) Chronic obstructive pulmonary disease, unspecified; Translations: [Emphysema, unspecified] Onset: 12-18-2021 08-27-2023 Chronic Coronary atherosclerosis and other heart disease (5 sources) Atherosclerotic heart disease of seminole coronary artery without angina pectoris; Translations: [Coronary occlusion] Onset: 03-08-2022 Chronic Coronary atherosclerosis and other heart disease (2 sources) Presence of coronary angioplasty implant and graft; Translations: [Presence of coronary angioplasty implant and graft] Onset: 01-07-2024 Episodic Deficiency and other anemia (1 source) Iron deficiency anemia, unspecified; Translations: [IRON DEFICIENCY ANEMIA, UNSPECIFIED] Onset: 03-08-2022 Episodic Diabetes mellitus with complications (2 sources) Type 2 diabetes mellitus with hyperglycemia; Translations: [Hyperglycemia due to type 2 diabetes mellitus] Onset: 03-16-2022 08-27-2023 Chronic Diabetes mellitus without complication (1 source) Type 2 diabetes mellitus without complications; Translations: [TYPE 2 DM WITHOUT COMPLICATIONS] Onset: 05-01-2022 Chronic Diabetes mellitus without complication (1 source) Hyperglycemia, unspecified; Translations: [HYPERGLYCEMIA, UNSPECIFIED] Onset: 03-08-2022 Episodic Disorders of lipid metabolism (2 sources) Pure hypercholesterolemia, unspecified; Translations: [Dyslipidemia] Onset: 05-01-2022 08-27-2023 Chronic Esophageal disorders (2 sources) Esophageal dysmotility; Translations: [Dyskinesia of esophagus] Onset: 08-27-2023 08-27-2023 Chronic Essential hypertension (5 sources) Essential (primary) hypertension; Translations: [Benign essential hypertension] Onset: 03-08-2022 Chronic Mood disorders (1 source) Major depressive disorder, single episode, unspecified; Translations: [ANDRES DEPRESS D/O SINGLE EPIS UNS] Onset: 05-01-2022 Chronic Mood disorders (1 source) Mood disorders; Translations: [DEPRESSION, UNSPECIFIED] Onset: 03-08-2022 Noninfectious gastroenteritis (1 source) Collagenous colitis; Translations: [Collagenous colitis] Onset: 08-27-2023 08-27-2023 Chronic Nutritional deficiencies (2 sources) Vitamin D deficiency, unspecified; Translations: [Vitamin D deficiency] Onset: 03-29-2022 08-27-2023 Chronic Osteoarthritis (4 sources) Primary generalized (osteo)arthritis; Translations: [PRIMARY GENERALIZED OSTEOARTHRITIS] Onset: 10-10-2022 Chronic Osteoporosis (6 sources) Age-related osteoporosis without current pathological fracture; Translations: [Senile osteoporosis] Onset: 12-22-2021 Chronic Other aftercare (5 sources) Other superintendent container terminal (current) drug therapy; Translations: [OTH ADJUSTER CURRENT DRUG THERAPY] Onset: 05-01-2022 Episodic Other circulatory disease (1 source) Raynaud's syndrome without gangrene; Translations: [RAYNAUDS SYNDROME WITHOUT GANGRENE] Onset: 12-18-2021 Chronic Other circulatory disease (2 sources) Other hypotension; Translations: [Other hypotension] Onset: 01-07-2024 Episodic Other connective tissue disease (2 sources) Polymyalgia rheumatica; Translations: [POLYMYALGIA RHEUMATICA] Onset: 03-08-2022 Chronic Other connective tissue disease (1 source) Polymyalgia rheumatica; Translations: [Polymyalgia rheumatica] Onset: 08-27-2023 08-27-2023 Chronic Other gastrointestinal disorders (1 source) Dysphagia, unspecified; Translations: [Dysphagia, unspecified] Onset: 06-26-2023 Episodic Other lower respiratory disease (4 sources) Other nonspecific abnormal finding of lung field; Translations: [OTH NONSPECIFIC ABN FIND LNG FIELD] Onset: 10-31-2022 Episodic Other nervous system disorders (1 source) Thoracic outlet syndrome; Translations: [Brachial plexus disorders] Onset: 08-27-2023 08-27-2023 Chronic Other non-traumatic joint disorders (1 source) Arthropathy in other blood disorders; Translations: [ARTHROPATHY OTHER BLOOD DISORDERS] Onset: 12-16-2021 Chronic Other screening for suspected conditions (not mental disorders or infectious disease) (2 sources) Other specified abnormal findings of blood chemistry; Translations: [Other specified abnormal findings of blood chemistry] Onset: 01-07-2024 Episodic Personality disorders (1 source) Chronic depression; Translations: [Chronic depressive disorder] Onset: 08-27-2023 08-27-2023 Chronic Respiratory failure; insufficiency; arrest (adult) (3 sources) Chronic respiratory failure with hypoxia; Translations: [Dependence on supplemental oxygen] Onset: 05-01-2022 Resolved: 02-21-2024 02-21-2024 Chronic Spondylosis; intervertebral disc disorders; other back problems (2 sources) Degeneration of lumbar intervertebral disc; Translations: [Other intervertebral disc degeneration, lumbar region] 08-20-2023 Chronic Substance-related disorders (2 sources) Nicotine dependence, unspecified, uncomplicated; Translations: [Nicotine dependence, cigarettes, uncomplicated] Onset: 03-08-2022 Chronic Systemic lupus erythematosus and connective tissue disorders (2 sources) Other giant cell arteritis; 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] Onset: 10-14-2022 Chronic Unclassified (1 source) SPONTANEOUS PNEUMO Onset: 03-08-2022 Unclassified (1 source) CONTACT W/AND (SUSP) EXPOS COVID-19; Translations: [CONTACT W/AND (SUSP) EXPOS COVID-19] Onset: 05-01-2022 Unclassified (1 source) THROMBOCYTOSIS UNSPECIFIED; Translations: [THROMBOCYTOSIS UNSPECIFIED] Onset: 04-04-2022 Urinary tract infections (1 source) Pyelonephritis; Translations: [Tubulo-interstitial nephritis, not specified as acute or chronic] Onset: 02-21-2024 02-21-2024 Episodic Past or Other Problems Problem Classification Problem Date Documented Da te Episodic/Chronic Deficiency and other anemia (1 source) Other iron deficiency anemias; Translations: [OTHER IRON DEFICIENCY ANEMIAS] Onset: 05-01-2022 Episodic Fluid and electrolyte disorders (3 sources) Dehydration; Translations: [Hyponatremia] Onset: 12-18-2021 06-14-2023 Episodic Genitourinary symptoms and ill-defined conditions (1 source) Dysuria; Translations: [Dysuria] Onset: 08-27-2023 Resolved: 02-21-2024 02-21-2024 Episodic Nutritional deficiencies (1 source) Cachexia; Translations: [CACHEXIA] Onset: 04-04-2022 Episodic Other aftercare (1 source) [facility] (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; Translations: [INTERMEDIATE CURRENT USE OF ASPIRIN] Onset: 05-01-2022 Episodic Other aftercare (1 source) [facility] (current) use of antithrombotics/ant iplatelets; Translations: [INTERMEDIATE ANTITHROMBOT/ANTIPL ATLETS] Onset: 03-16-2022 Episodic Other aftercare (2 sources) Post-discharge follow-up; Translations: [Encounter for follow-up examination after completed treatment for conditions other than malignant neoplasm] Onset: 06-14-2023 06-14-2023 Episodic Other circulatory disease (4 sources) Hypotension, unspecified; Translations: [HYPOTENSION UNSPECIFIED] Onset: 12-14-2021 Episodic Other connective tissue disease (1 source) Fibromyalgia; Translations: [FIBROMYALGIA] Onset: 04-04-2022 Episodic Other connective tissue disease (1 source) Fibromyalgia; Translations: [Fibromyalgia] Onset: 08-27-2023 08-27-2023 Episodic Other injuries and conditions due to external causes (1 source) History of falling; Translations: [HISTORY OF FALLING] Onset: 03-16-2022 Episodic Other lower respiratory disease (3 sources) Shortness of breath; Translations: [SHORTNESS OF BREATH] Onset: 04-25-2022 Episodic Other nervous system disorders (1 source) Paresthesia; Translations: [Paresthesia of skin] Onset: 08-27-2023 08-27-2023 Episodic Other nutritional; endocrine; and metabolic disorders (1 source) Body mass index (BMI) 19.9 or less, adult; Translations: [BODY MASS INDEX 19.9 OR LESS ADULT] Onset: 04-04-2022 Episodic Pleurisy; pneumothorax; pulmonary collapse (14 sources) Spontaneous pneumothorax; Translations: [Spontaneous tension pneumothorax] Onset: 03-06-2022 Resolved: 02-21-2024 Episodic Pneumonia (except that caused by tuberculosis or sexually transmitted disease) (3 sources) Pneumonia, unspecified organism; Translations: [PNEUMONIA UNSPECIFIED ORGANISM] Onset: 10-24-2022 Episodic Residual codes; unclassified (1 source) Bilateral lower limb edema; Translations: [Localized edema] Onset: 08-27-2023 08-27-2023 Episodic Respiratory failure; insufficiency; arrest (adult) (2 sources) Acute respiratory failure with hypoxia; Translations: [ACUTE RESPIRATORY FAILURE WITH HYPOXIA] Onset: 03-08-2022 Episodic Screening and history of mental health and substance abuse codes (1 source) Personal history of nicotine dependence; Translations: [PERSONAL HISTORY OF NICOTINE DEPEND] Onset: 05-01-2022 Episodic Results Test Name Value Interpretation Reference Range Facility Ambulatory Visit Summaryon 1 07-12-2023 Ambulatory Visit Summary Ambulatory Visit Summary LIZZTLISE :1955 Visit Date:05/12/2024 Ambulatory Visit Instructions Your Diagnosis Unspecified urethral stricture, female Chronic cystitis Asymptomatic microscopic hematuria Your Care Team Attending Physician - KEVIN SALDIVAR, Ihsan Wild Primary Care Physician - ERASTO BURROUGHS MD This Is Your Medications List cephalexin (Keflex 500 mg Cap) estradiol topical (estradiol 0.1 mg/g Vag Crm) Contact prescribing physician if questions or concerns Misc Prescription (GUAIFENESIN 600MG ER TABLETS) albuterol (Albuterol (Eqv-Proventil HFA) 90 mcg/inh inhalation aerosol) aspirin atorvastatin (atorvastatin 40 mg Tab) cholecalciferol (Vitamin D3) duloxetine (Cymbalta) eszopiclone (Lunesta) melatonin (Melatonin) metoprolol (Metoprolol tartrate 25 mg Tab) omeprazole (omeprazole 40 mg Cap-DR) potassium chloride predniSONE pregabalin (Lyrica) Procedures Performed Dilation of urethra (03/21/2021), Cystoscopy (09/22/2019), Exploratory laparotomy (04/09/2019), Cystourethroscopy with dilation of urethral stricture (09/07/2015), Urodynamics (10/29/2014), section, Cystoscopy, Dilation and stretching of urethra, Lobectomy of lung, Stent placement. Discharge Vitals Heart Rate (Peripheral) 77 Blood Pressure 144/83 Height 64 in Height 163 cm Weight 107.8 lb Weight 49 kg BMI 18.44 What to do next Scheduled Follow-Up Appointments Sunday 1:45 PM EDT With: BROWN Ihsan SALDIVAR Where: [facility] [address] [place] [address]- You Need to Schedule the Following Appointments Follow Up with KEVIN SALDIVAR, Ihsan Wild, [place] When: Where: [facility] [address], [facility] [place] [address]- Medications What How Much When Instructions New cephalexin (Keflex 500 mg Cap) 1 Capsules By Mouth Every 12 hours Duration: 10 Days Pickup at [facility] #[id number] Changed estradiol topical (estradiol 0.1 mg/ g Vag Crm) 1 Gram Vaginal As Directed Plunge 1 gm vaginally then apply excess cream around the urethra once a week at night. Pickup at [facility] #[id number] Unchanged albuterol (Albuterol (Eqv-Proventil HFA) 90 mcg/ inh inhalation aerosol) Contact prescribing physician if questions or concerns Unchanged aspirin 81 Milligram By Mouth Every day Contact prescribing physician if questions or concerns Unchanged atorvastatin (atorvastatin 40 mg Tab) By Mouth Every day Contact prescribing physician if questions or concerns Unchanged cholecalciferol (Vitamin D3) Contact prescribing physician if questions or concerns Unchanged duloxetine (Cymbalta) 90 Milligram By Mouth Every day Contact prescribing physician if questions or concerns Unchanged eszopiclone (Lunesta) 3 Milligram By Mouth Once a day (at bedtime) Contact prescribing physician if questions or concerns Unchanged melatonin (Melatonin) See instructions 3 mg Oral Daily Contact prescribing physician if questions or concerns Unchanged metoprolol (Metoprolol tartrate 25 mg Tab) 1 Tablets By Mouth 2 times a day Contact prescribing physician if questions or concerns Unchanged Misc Prescription (GUAIFENESIN 600MG ER TABLETS) 0 Contact prescribing physician if questions or concerns Unchanged omeprazole (omeprazole 40 mg Cap-) Contact prescribing physician if questions or concerns Unchanged potassium chloride 20 Milliequivalent By Mouth Contact prescribing physician if questions or concerns Unchanged predniSONE 10 Milligram By Mouth Every day Contact prescribing physician if questions or concerns Unchanged pregabalin (Lyrica) 100 Milligram By Mouth 3 times a day Contact prescribing physician if questions or concerns Pharmacy Information [facility] #[id number]: [address], [place] [id number] [phone] Allergies Latex (RASH) Zithromax (HIVES) Problems Ongoing - Any problem that you are currently receiving treatment for. Anticoagulated Asymptomatic microscopic hematuria Chronic cystitis Chronic GERD Chronic pain syndrome Cigarette smoker CTS (carpal tunnel syndrome) Depression Dysuria Emphysema/COPD Feeling of incomplete bladder emptying Fibromyalgia History of colitis Hypercholesteremia Hypertension Microscopic hematuria Migraine Nocturia Pneumaturia Polymyalgia rheumatica Post-void dribbling Dior syndrome Shortness of breath Suprapubic pain Unspecified urethral stricture, female Urge incontinence Urinary frequency Urinary urgency Patient Survey You may receive a survey via text or e-mail asking about your office visit. Please share your experience with us by completing your survey. We appreciate your feedback and thank you for choosing us for your care. Education Materials Urethral Dilation Urethral dilation is a procedure to stretch open (dilate) the urethra. The urethra (more content not included)... Normal [facility] Urology Office/Clinic Noteon 05-12-2024 Urology Office/Clinic Note Urology Office/Clinic Note Chief Complaint UD HPI Staff Pt here for 6 mo IO UD. Last UD 11/09/23. Consent form signed by pt. Pt states she feels like she may not need dilation at this time. Previous Dx: unspecified urethral stricture, chronic cystitis, asymptomatic microscopic hematuria Pt believes she has UTI due to feeling right flank pain that started Sunday. UA dipstick indicates moderate blood, positive nitrites, large leukocytes, positive protein. *not using Estradiol cream, states it makes her itch and burn Dysuria: denies Incomplete bladder emptying: denies Hematuria: denies Urgency: yes Nocturia: 3-4x per night Stream: stream has not weakened since last visit, feels that she has a good stream, no problems Wearing pads/ Depends: wears pads Urge incontinence: yes Stress incontinence: yes Incontinence without Sensory Awareness: denies Abdominal pain: denies Flank pain: right flank pain that began 05/10/24 History of Present Illness Tests reviewed: UA I have reviewed the previous health record information and history for this patient from Dr. Brown. I have reviewed and verified the staff HPI to be accurate for this encounter. Review of Systems PHQ Score Initial Depression Screen Score: 1 SCORE ROS - Provider Constitutional: denies weight [...] HPI. Physical Exam Vitals & Measurements HR: 77(Peripheral) BP: 144/83 HT: 64 in HT: 163 cm WT: 49 kg WT: 107.8 lb BMI: 18.44 General Appearance: alert, no distress, well nourished, well developed female. Assessment/Plan 1. Unspecified urethral stricture, female (N35.12: Postinfective urethral stricture, not elsewhere classified, female) Last UD 11/09/23. Prior UDs: 04/16/23, 10/10/22, 09/19/21. Pt here for 6 mo IO ID today but she does not feel she needs a dilation. Good flow. Feels she empties completely. Follow up 6 mos for UD or sooner if needed. Pt understands and agrees with plan. 2. Chronic cystitis (N30.20: Other chronic cystitis without hematuria) Has hx of uti with sepsis and in ICU on a vent. [1] UA shows moderate blood, + nitrites, and large leuks. No burning but has been having pain around R kidney for the past few days, started Sunday. Urine also cloudy. No longer using estradiol 2-3x/week due to SE of burning and itching. If pt develops more infection, UD will be strongly recommended. Recommended restarting estradiol cream but only using 1x/week, pt is amenable. -Start Keflex 500 mg bid x 10 days. SEs discussed. Sent to [facility]. unable to send urine for culture today due to no transport. -Restart Estradiol cream. Use 1x/week. Notify office if experiencing SEs. Sent to [facility]. 3. Asymptomatic microscopic hematuria (R31.21: Asymptomatic microscopic hematuria) Chronic. [2] Follow-up With When Contact Information KEVIN SALDIVAR, Ihsan Wild, URL [facility] [address] , [place] [id number]- Additional Instructions: 6 mos for UD Patient Education Urethral Dilation I, Katarina Bose, personally scribed for Dr. Brown on 05/12/2024 16:58:43. . Documentation recorded by the scribe, Katarina Bose, accurately reflects the services(s) I performed and decisions made by me. Authenticated by Dr. Brown on 05/12/2024 17:00:28. Problem List/Past Medical History Ongoing Anticoagulated Asymptomatic [...] 0.1 mg/g Vag Crm, 1 gm, Vaginal, As Directed, 6 refills GUAIFE (more content not included)... Normal [facility] Comment on above: Result Comment: Elec tronically Signed By: Ihsan BROWN MD\.br\Date and Time Signed: 05/12/24 17:00 EST\.br\Electronically Co-Signed By: Katarina Bose\.br\Date and Time Co-Signed: 05/12/24 16:58 EST 3602-12-2024 36 Tried to contact patient again. She has no VM. [facility] 36on 01-29-2024 36 Regarding lab result s from 01/07/2024: MD Kika Becerra MA Blood work is ok, follow up as planned in 6 months. Tried to contact patient but no VM. Will try again tomorrow. Normal [facility] Office Visiton 01-07-2024 Follow-up visit [id number] Covert,Lise Easton 1955 F Date Provider Department Center 01/07/2024 JER LARRY MARC Krik Family History Problem Relation Age of Onset Stroke Father Stroke Father's Sister Coronary artery disease Paternal Grandmother Family Status - Relation Status Age at Father Father's Sister Paternal Grandmother Level of Service:99202 MI OFFICE/OUTPATIENT ESTABLISHED MOD MDM 30 MIN Normal [facility] Consent for Procedure/Surger yon 11-12-2023 Consent for Procedure/Surgery [id number] [facility] Patient Educationon 11-09-19 24 Patient Education Urology [...] including vitamins, herbs, eye drops, creams, and flln-kfg-xulljci medicines. ? Any problems you or family [...] tells you to take them. ? Taking wvdo-xnp-ahunrcx medicines, vitamins, herbs, and supplements. General instructions [...] these instructions at home: Medicines ? Take rqqc-dpv-mbbquid and prescription medicines only as told by [...] to prevent or treat constipation: ? Take uzlx-esm-ucwyqea or prescription medicines. ? Eat foods that [...] You pa (more content not included)... Normal [facility] Urology Office/Clinic Noteon 11-09-2023 Urology Office/Clinic [...] Tight The Urethra was dilated to: 20-32 Sami with sounds. Specimens Removed: None Postoperative Information [...] Information KEVIN SALDIVAR, Ihsan Wild, URL [address] [id number]- Additional Instructions: 6 mos w/ IO UD [...] Vitamin D3 (more content not included)... Normal [facility] Comment on above: Result Comment: Elec tronically Signed By: Ihsan BROWN MD\.br\Date and Time Signed: 11/09/23 12:24 EDT\.br\Electronically Co-Signed By: Amanda Camara.fritz\Date and Time Co-Signed: 11/09/23 12:14 EDT 36on 09-03-2023 36 Home health informed and script sent Normal [facility] Orders Onlyon 08-30-2023 Orders Only [id number] Covert,Lise Easton 1955 F Date Provider Department Center 08/30/2023 [id number], [facility] Family History Problem Relation Age of Onset Stroke Father Stroke Father's Sister Coronary artery disease Paternal Grandmother Family Status - Relation Status Age at Father Father's Sister Paternal Grandmother Normal [facility] Office Visiton 06-27-2023 Follow-up visit [id number] LizztLise 1955 F Date Provider Department Center 06/27/2023 JER LARRY MARC [place] [facility] Family History Problem Relation Age of Onset Stroke Father Stroke Father's Sister Coronary artery disease Paternal Grandmother Family Status - Relation Status Age at Father Father's Sister Paternal Grandmother Level of Service:08643 MI OFFICE/OUTPATIENT ESTABLISHED LOW MDM 20 MIN Normal [facility] 30on 06-06-2023 30 The patient is [...] symptoms for stability, deterioration, or improvement Normal [facility] BASIC METABOLIC PANELon 11- Anion gap [Moles/Vol] 9 mmol/L Normal 7-20 [facility] Comment on above: Performed By: #### L [id number] #### [facility] ([facility]) [address] [place] [address] Calcium [Mass/Vol] 8.3 mg/dL Low 8.6-10.3 [facility] Comment on above: Performed By: #### L [id number] #### [facility] [address] [place] [id number] Chloride [Moles/Vol] 99 mmol/L Normal 98-107 [facility] Comment on above: Performed By: #### L [id number] #### [facility] ([facility]) [address] [place] [id number] CO2 [Moles/Vol] 26 mmol/L Normal 21-31 [facility] Comment on above: Performed By: #### L [id number] #### [facility] ([facility]) [address] [place] [address] Creatinine [Mass/Vol] 0.72 mg/dL Normal 0.60-1.20 [facility] Comment on above: Performed By: #### L [id number] #### [facility] ([facility]) [address] [place] [address] GLOMERULAR FILTRATION RATE ML/MIN/1.73 SQ M.PREDICTED 92.2 mL/min/1.73m*2 Normal >60.0 [facility] Comment on above: Result Comment: [facility]???s estimated glomerular filtration rate (eGFR) will [...] individuals. Performed By: #### L [id number] #### [facility] ([facility] [address] [place] [id number] Glucose [Mass/Vol] 107 mg/dL High 70-100 [facility] Comment on above: Performed By: #### L [id number] #### [facility] ([facility] [address] [place] [address] Potassium [Moles/Vol] 3.9 mmol/L Normal 3.5-5.1 [facility] Comment on above: Performed By: #### L [id number] #### [facility] ([facility]) [address] [place] [id number] Sodium [Moles/Vol] 130 mmol/L Low 136-145 [facility] Comment on above: Performed By: #### L [id number] #### [facility] ([facility] [address] [place] [id number] Urea nitrogen [Mass/Vol] 12 mg/dL Normal 7-25 [facility] Comment on above: Performed By: #### L [id number] #### [facility] ([facility] [address] [place] [address] UREA NITROGEN/CREATININE (MASS RATIO) IN SER/PLAS 16.7 Normal [facility] Comment on above: Performed By: #### L [id number] #### [facility] ([facility] [address] [place] [id number] CBCon 06-06-2023 Erythrocyte distribution width (RBC) [Ratio] 13.4 % Normal 11.5-15.0 [facility] Comment on above: Performed By: #### L [id number] #### [facility] ([facility] [address] [place] [address] ERYTHROCYTE MEAN CORPUSCULAR HEMOGLOBIN CONCENTRATION (G/DL) BY AUTOMATED 33.4 g/dL Normal 32.0-35.0 [facility] Comment on above: Performed By: #### L [id number] #### [facility] ([facility]) [address] [place] [address] Hematocrit (Bld) [Volume fraction] 28.7 % Low 36.0-48.0 [facility] Comment on above: Performed By: #### L [id number] #### [facility] ([facility]) [address] [place] [id number] Hemoglobin (Bld) [Mass/Vol] 9.6 g/dL Low 12.0-15.0 [facility] Comment on above: Performed By: #### L [id number] #### [facility] ([facility]) [address] [place] [id number] MCH (RBC) [Entitic mass] 28.2 pg Normal 27.0-33.0 [facility] Comment on above: Performed By: #### L [id number] #### [facility] ([facility]) [address] [place] [id number] MCV (RBC) [Entitic vol] 84.4 fL Normal 82.0-98.0 [facility] Comment on above: Performed By: #### L [id number] #### [facility] ([facility]) [address] [place] [id number] PLATELETS (10*3/UL) IN BLOOD AUTOMATED COUNT 522 10*3/uL High 150-400 [facility] Comment on above: Performed By: #### L [id number] #### [facility] ([facility]) [address] [place] [id number] RBC (Bld) [#/Vol] 3.40 10*6/uL Low 3.80-5.00 [facility] Comment on above: Performed By: #### L [id number] #### [facility] ([facility]) [address] [place] [id number] WBC (Bld) [#/Vol] 10.31 10*3/uL Normal 4.00-10.60 [facility] Comment on above: Performed By: #### L [id number] #### [facility] ([facility] [address] [place] [id number] Letter (Out)on 06-06-2023 Letter (Out) [id number] Covert,Lise Easton 1955 F Date Provider Department Center 06/06/2023 [id number], GENERIC PRO*INIT None Family History Problem Relation Age of Onset Stroke Father Stroke Father's Sister Coronary artery disease Paternal Grandmother Family Status - Relation Status Age at Father Father's Sister Paternal Grandmother Normal [facility] MAGNESIUMon 06-06-2023 Magnesium [Mass/Vol] 1.9 mg/dL Normal 1.9-2.7 [facility] Comment on above: Performed By: #### L [id number] #### [facility] ([facility]) [address] [place] [address] 30on 06-05-2023 30 The patient is Moderately Stable - Low risk of patient condition declining or worsening The patient's goals for the shift include comfort The clinical goals for the shift include stable vitals Normal [facility] 30 Daily Case Managemen t Update Multidisciplinary rounds have been completed. Barriers to Discharge: Transfer from [place] for chest pain and NSTEMI. TTE ordered. Pending cardio rec. Trop was .06 down to .04. +UTI and Pneumonia. Continue IV Rocephin. Urine and blood cultures pending. Patient is from [facility] with [facility] 02 Diet: Dietary Orders (From [...] name here: DANIEL GUERIN 06/05/23 1508 Normal [facility] 30 The patient is Moderately Unstable - Medium risk of patient condition declining or worsening The patient's goals for the shift include comfort The clinical goals for the shift include vss Over the shift, the patient did not make progress toward the following goals. Barriers to progression include . Recommendations to address these barriers include . Normal [facility] 30 The patient is Moderately Stable [...] injury: Assess patient frequently for physical needs [place] fall precautions as indicated by assessment Identify [...] and prevent overall improvement and discharge Normal [facility] ANTI-XA (HEPARIN LEVEL)on HEPARIN UNFRACTIONATED (U/ML) IN PPP BY CHROMOGENIC METHOD <0.10 Invalid Interpretation Code 0.3-0.7 [facility] Comment on above: Order Comment: Check anti-Xa level every 6 hours while on heparin infusion, or per protocol. Result Comment: Lenka roxaban and Apixaban will interfere with the anti Xa assay used to monitor UFH and LMWH. Performed By: #### L [id number] #### [facility] ([facility]) [address] [place] [address] HEPARIN UNFRACTIONATED (U/ML) IN PPP BY CHROMOGENIC METHOD <0.10 Invalid Interpretation Code 0.3-0.7 [facility] Comment on above: Order Comment: Check anti-Xa level every 6 hours while on heparin infusion, or per protocol. Result Comment: Lenka roxaban and Apixaban will interfere with the anti Xa assay used to monitor UFH and LMWH. Performed By: #### L [id number] #### [facility] ([facility]) [address] [place] [address] APTTon 06-05-2023 ACTIVATED PARTIAL THROMBOPLASTIN TIME IN PPP BY COAGULATION ASSAY 38.8 Seconds High 25.0-35.0 [facility] Comment on above: Result Comment: Clin ical significance of the APTT is questionable in the presence of heparin. Performed By: #### L [id number] #### [facility] ([facility]) [address] [place] [address] B-TYPE NATRIURETIC PEPTIDEon 06-05-2023 Natriuretic peptide B (Bld) [Mass/Vol] 136 pg/mL High 0-100 [facility] Comment on above: Performed By: #### L [id number] #### [facility] ([facility]) [address] [place] [address] BLOOD CULTUREon 06-05-2023 Bacteria identified Cx Nom (Bld) No growth at 5 days Normal [facility] Comment on above: Performed By: #### L [id number] ####[facility] ([facility])[address] [place] [id number] Order Comment: From a different site than #1. CBC WITH AUTO DIFFERENTIALon 06-05-2023 Basophils (Bld) [#/Vol] 0.05 10*3/uL Normal 0.00-0.20 [facility] Comment on above: Performed By: #### L [id number] #### [facility] ([facility]) [address] [place] [id number] Basophils/100 WBC (Bld) 0.3 % Normal 0.0-1.0 [facility] Comment on above: Performed By: #### L [id number] #### [facility] ([facility]) [address] [place] [address] Eosinophils (Bld) [#/Vol] 0.02 10*3/uL Normal 0.00-0.50 [facility] Comment on above: Performed By: #### L [id number] #### [facility] ([facility]) [address] [place] [address] Eosinophils/100 WBC (Bld) 0.1 % Normal 0.0-6.0 [facility] Comment on above: Performed By: #### L [id number] #### [facility] ([facility]) [address] [place] [address] Erythrocyte distribution width (RBC) [Ratio] 13.3 % Normal 11.5-15.0 [facility] Comment on above: Performed By: #### L [id number] #### [facility] ([facility] [address] [place] [address] ERYTHROCYTE MEAN CORPUSCULAR HEMOGLOBIN CONCENTRATION (G/DL) BY AUTOMATED 32.4 g/dL Normal 32.0-35.0 [facility] Comment on above: Performed By: #### L [id number] #### [facility] ([facility] [address] [place] [address] Hematocrit (Bld) [Volume fraction] 35.8 % Low 36.0-48.0 [facility] Comment on above: Performed By: #### L [id number] #### [facility] ([facility]) [address] [place] [address] Hemoglobin (Bld) [Mass/Vol] 11.6 g/dL Low 12.0-15.0 [facility] Comment on above: Performed By: #### L [id number] #### [facility] ([facility] [address] [place] [address] Immature granulocytes (Bld) [#/Vol] 0.17 10*3/uL Normal 0.00-0.20 [facility] Comment on above: Performed By: #### L [id number] #### [facility] ([facility]) [address] [place] [address] Immature granulocytes/100 WBC (Bld) 1.0 % Normal 0.0-1.0 [facility] Comment on above: Performed By: #### L [id number] #### [facility] ([facility]) [address] [place] [address] Lymphocytes (Bld) [#/Vol] 0.80 10*3/uL Low 1.20-4.00 [facility] Comment on above: Performed By: #### L [id number] #### [facility] ([facility]) [address] [place] [address] Lymphocytes/100 WBC (Bld) 4.6 % Low 20.0-45.0 [facility] Comment on above: Performed By: #### L [id number] #### [facility] ([facility]) [address] [place] [address] MCH (RBC) [Entitic mass] 28.3 pg Normal 27.0-33.0 [facility] Comment on above: Performed By: #### L [id number] #### [facility] ([facility]) [address] [place] [address] MCV (RBC) [Entitic vol] 87.3 fL Normal 82.0-98.0 [facility] Comment on above: Performed By: #### L [id number] #### [facility] ([facility]) [address] [place] [id number] Monocytes (Bld) [#/Vol] 0.78 10*3/uL Normal 0.10-1.00 [facility] Comment on above: Performed By: #### L [id number] #### [facility] ([facility]) [address] [place] [address] Monocytes/100 WBC (Bld) 4.5 % Low 5.0-12.0 [facility] Comment on above: Performed By: #### L [id number] #### [facility] ([facility]) [address] [address] Neutrophils (Bld) [#/Vol] 15.46 10*3/uL High 1.60-7.60 [facility] Comment on above: Performed By: #### L [id number] #### [facility] ([facility]) [address] [address] Neutrophils/100 WBC (Bld) 89.5 % High 40.0-72.0 [facility] Comment on above: Performed By: #### L [id number] #### [facility] ([facility] [address] [address] NRBC (PER 100 WBCS) BY AUTOMATED COUNT 0.0 % Normal 0 [facility] Comment on above: Performed By: #### L [id number] #### [facility] ([facility] [address] [place] [address] PLATELETS (10*3/UL) IN BLOOD AUTOMATED COUNT 517 10*3/uL High 150-400 [facility] Comment on above: Performed By: #### L [id number] #### [facility] ([facility]) [address] [place] [id number] RBC (Bld) [#/Vol] 4.10 10*6/uL Normal 3.80-5.00 [facility] Comment on above: Performed By: #### L [id number] #### [facility] ([facility]) [address] [place] [address] WBC (Bld) [#/Vol] 17.28 10*3/uL High 4.00-10.60 [facility] Comment on above: Performed By: #### L [id number] #### [facility] ([facility]) [address] [place] [address] COMPREHENSIVE METABOLIC PANE [place] 06-05-2023 ALANINE AMINOTRANSFERASE (SGPT) (U/L) IN SER/PLAS <3 Low 7-52 [facility] Comment on above: Performed By: #### L [id number] #### [facility] ([facility] [address] [place] [address] Albumin [Mass/Vol] 3.1 g/dL Low 3.5-5.7 [facility] Comment on above: Performed By: #### L [id number] #### [facility] ([facility]) [address] [place] [address] ALP [Catalytic activity/Vol] 83 U/L Normal 34-104 [facility] Comment on above: Performed By: #### L [id number] #### [facility] ([facility]) [address] [place] [address] Anion gap [Moles/Vol] 13 mmol/L Normal 7-20 [facility] Comment on above: Performed By: #### L [id number] #### [facility] [address] [place] [address] AST [Catalytic activity/Vol] 14 U/L Normal 13-39 [facility] Comment on above: Performed By: #### L [id number] #### [facility] [address] [place] [address] Bilirubin [Mass/Vol] 0.3 mg/dL Normal 0.3-1.0 [facility] Comment on above: Performed By: #### L [id number] #### [facility] [address] [place] [address] Calcium [Mass/Vol] 8.9 mg/dL Normal 8.6-10.3 [facility] Comment on above: Performed By: #### L [id number] #### [facility] [address] [place] [address] Chloride [Moles/Vol] 98 mmol/L Normal 98-107 [facility] Comment on above: Performed By: #### L [id number] #### [facility] [address] [place] [address] CO2 [Moles/Vol] 25 mmol/L Normal 21-31 [facility] Comment on above: Performed By: #### L [id number] #### [facility] ([facility]) [address] [place] [address] Creatinine [Mass/Vol] 0.96 mg/dL Normal 0.60-1.20 [facility] Comment on above: Performed By: #### L [id number] #### [facility] ([facility]) [address] [place] [address] GLOMERULAR FILTRATION RATE ML/MIN/1.73 SQ M.PREDICTED 65.3 mL/min/1.73m*2 Normal >60.0 [facility] Comment on above: Result Comment: [facility]???s estimated glomerular filtration rate (eGFR) will [...] individuals. Performed By: #### L [id number] #### [facility] ([facility] [address] [place] [address] Glucose [Mass/Vol] 93 mg/dL Normal 70-100 [facility] Comment on above: Performed By: #### L [id number] #### [facility] ([facility]) [address] [place] [address] Potassium [Moles/Vol] 3.3 mmol/L Low 3.5-5.1 [facility] Comment on above: Performed By: #### L [id number] #### [facility] ([facility]) [address] [place] [address] Protein [Mass/Vol] 5.7 g/dL Low 6.0-8.3 [facility] Comment on above: Performed By: #### L [id number] #### [facility] ([facility]) [address] [place] [address] Sodium [Moles/Vol] 133 mmol/L Low 136-145 [facility] Comment on above: Performed By: #### L [id number] #### [facility] ([facility]) [address] [place] [address] Urea nitrogen [Mass/Vol] 12 mg/dL Normal 7-25 [facility] Comment on above: Performed By: #### L [id number] #### [facility] ([facility]) [address] [place] [address] UREA NITROGEN/CREATININE (MASS RATIO) IN SER/PLAS 12.5 Normal [facility] Comment on above: Performed By: #### L [id number] #### [facility] ([facility]) [address] [place] [address] CONSULTon 06-05-2023 CONSULT - Attestation signed by [...] Nausea / Vomiting and Urinary symptoms to [facility], there she was found to have UTI, labs showed WBC of 17 and she was started on IV antibiotics, work up also showed high sensitive troponin of 62, She doesn't report any chest pain, or discomfort. She was started on heparin drip and was transferred here to [facility]. Today she reports no chest pain or [...] 49.9 kg (110 lb 0.2 oz) 06/05/23 001 129/80 36.8 ???C (98.2 ???F) Temporal 98 [...] bilaterally. NEURO: (more content not included)... Normal [facility] ETHANOLon 06-05-2023 ETHANOL (MG/DL) IN SER/PLAS <10 Normal [facility] Comment on above: Performed By: #### L [id number] #### [facility] ([facility]) [address] [place] [address] ETHANOL CALCULATED (%) Normal [facility] Comment on above: Performed By: #### L [id number] #### [facility] ([facility]) [address] [place] [address] HEMOGLOBIN A1Con 06-05-2023 Glucose [Mass/Vol] 160 mg/dL Normal [facility] Comment on above: Performed By: #### L [id number] ####[facility] ([facility])[address] [place] [address] HbA1c (Bld) [Mass fraction] 7.2 % High 4.0-6.0 [facility] Comment on above: Performed By: #### L AB90 ####[facility] ([facility])[address] [place] [address] LACTIC ACID WITH 4 HOUR REFL EXon 06-05-2023 LACTATE (MMOL/L) IN SER/PLAS 1.1 mmol/L Normal 0.5-2.2 [facility] Comment on above: Performed By: #### L [id number] #### [facility] ([facility]) [address] [place] [address] LEGIONELLA ANTIGEN, URINEon 06-05-2023 LEGIONELLA AG, UR Negative Normal NEG [facility] Comment on above: Result Comment: L. p neumophila serogroup 1 antigen not detected. A negative result does not exclude infection with Leginella pnemophila serogroup 1 nor does it rule out other microbial-caused respiratory infections of disease caused by other serogroups of Legionella pneumophila. Test Performed by [facility] [address] [place] [address] - Released 06/05/2023 12:36 Performed By: #### L [id number] #### [facility] [address] [place] [address] LIPID PANELon 06-05-2023 CHOL/HDL 1.6 mg/dL Normal [facility] Comment on above: Performed By: #### L [id number] #### [facility] ([facility]) [address] [place] [address] Cholesterol [Mass/Vol] 74 mg/dL Low 120-200 [facility] Comment on above: Performed By: #### L [id number] #### [facility] ([facility]) [address] [place] [address] Magnesium [Mass/Vol] 65 mg/dL Normal 40-149 [facility] Comment on above: Result Comment: TRIG LYCERIDE REFERENCE RANGE: 20 YEARS AND OLDER CARDIOVASCULAR RISK LESS THAN 150 mg/dL LOW RISK 150 TO 199 mg/dL BORDERLINE RISK 200 mg/dL AND GREATER HIGH RISK Performed By: #### L [id number] #### [facility] ([facility]) [address] [place] [address] Magnesium [Mass/Vol] 14 mg/dL Normal 0-160 [facility] Comment on above: Performed By: #### L [id number] #### [facility] ([facility]) [address] [place] [address] Magnesium [Mass/Vol] 47 mg/dL Normal 23-92 [facility] Comment on above: Performed By: #### L [id number] #### [facility] ([facility]) [address] [place] [address] NON HDL CHOL. (LDL+VLDL) 27 Normal [facility] Comment on above: Performed By: #### L [id number] #### [facility] ([facility]) [address] [place] [id number] TOTAL VLDL-C 13 mg/dL Normal 0-40 [facility] Comment on above: Performed By: #### L [id number] #### [facility] ([facility]) [address] [place] [address] MAGNESIUMon 06-05-2023 Magnesium [Mass/Vol] 1.1 mg/dL Low 1.9-2.7 [facility] Comment on above: Performed By: #### L [id number] #### [facility] ([facility]) [address] [place] [address] PHOSPHORUSon 06-05-2023 Magnesium [Mass/Vol] 2.8 mg/dL Normal 2.5-5.0 [facility] Comment on above: Performed By: #### L [id number] #### [facility] ([facility]) [address] [place] [address] PROTIME-INRon 06-05-2023 INR IN PPP BY COAGULATION ASSAY 1.25 High 0.90-1.10 [facility] Comment on above: Result Comment: ACCC [...] 1995;[id number]. Performed By: #### L [id number] #### [facility] [address] [place] [address] PROTHROMBIN TIME (PT) IN PPP BY COAGULATION ASSAY 15.7 Seconds High 12.3-14.8 [facility] Comment on above: Performed By: #### L [id number] #### [facility] [address] [place] [address] TOXICOLOGY PANEL URINEon AMPHETAMINE+METHAMPHE TAMINE SCREEN (PRESENCE) IN URINE Negative Normal Negative [facility] Comment on above: Performed By: #### L [id number] ####[facility] ([facility])[address] [place] [address] BARBITURATES PRESENCE IN URINE BY SCREEN METHOD Negative Normal Negative [facility] Comment on above: Performed By: #### L [id number] ####[facility] ([facility])[address] [place] [address] Benzodiazepines Ql (U) Negative Normal Negative [facility] Comment on above: Performed By: #### L [id number] ####[facility] ([facility])[address] [place] [address] CANNABINOID (PRESENCE) IN URINE BY SCREEN METHOD Negative Normal Negative [facility] Comment on above: Performed By: #### L [id number] ####[facility] ([facility])[address] [place] [address] Cocaine Ql (U) Negative Normal Negative [facility] Comment on above: Performed By: #### L [id number] ####[facility] [place] [address] METHADONE (PRESENCE) IN URINE BY SCREEN METHOD Negative Normal Negative [facility] Comment on above: Performed By: #### L [id number] ####[facility] ([facility])[address] [place] [address] OPIATES (PRESENCE) IN URINE BY SCREEN METHOD Positive Abnormal Negative [facility] Comment on above: Performed By: #### L [id number] ####[facility] ([facility])[address] [place] [address] PHENCYCLIDINE PRESENCE IN URINE BY SCREEN METHOD Negative Normal Negative [facility] Comment on above: Performed By: #### L [id number] ####[facility] ([facility])[address] [place] [address] Propoxyphene Screen Ql (U) Negative Normal Negative [facility] Comment on above: Performed By: #### L [id number] ####[facility] ([facility])[address] [place] [address] TRICYCLIC ANTIDEPRESSANTS (PRESENCE) IN URINE Negative Normal Negative [facility] Comment on above: Performed By: #### L [id number] ####[facility] [place] [address] TROPONIN Ion 06-05-2023 Troponin I.cardiac [Mass/Vol] 0.04 ng/mL Normal 0.00-0.04 [facility] Comment on above: Performed By: #### L [id number] #### [facility] ([facility]) [address] [place] [address] Troponin I.cardiac [Mass/Vol] 0.06 ng/mL High 0.00-0.04 [facility] Comment on above: Performed By: #### L [id number] ####[facility] ([facility] [place] [address] TSH3 REFLEX TO FT4on 023 THYROTROPIN (MIU/L) IN SER/PLAS BY DETECTION LIMIT <= 0.05 MIU/L 1.46 mIU/L Normal 0.34-5.60 [facility] Comment on above: Performed By: #### L [id number] ####[facility] ([facility])[address] [place] [address] URINALYSIS MICROSCOPIC WITH REFLEX CULTUREon 06-05-2023 CASTS IN URINE Normal [facility] Comment on above: Performed By: #### L [id number] ####[facility] ([facility])[address] [place] [address] CRYSTALS IN URINE Normal [facility] Comment on above: Performed By: #### L [id number] ####[facility] ([facility])[address] [place] [address] OTHER MICROSCOPIC ELEMENTS Normal [facility] Comment on above: Performed By: #### L [id number] ####[facility] ([facility])[address] [place] [address] RBC (#/HPF) IN URINE SEDIMENT 6-10 Abnormal None Seen [facility] Comment on above: Performed By: #### L [id number] ####[facility] ([facility])[address] [place] [id number] SQUAMOUS EPITHELIAL CELLS (#/HPF) IN URINE SEDIMENT Many Abnormal None Seen, Occasional [facility] Comment on above: Performed By: #### L [id number] ####[facility] [place] [id number] WBC (LEUKOCYTE) (#/HPF) IN URINE SEDIMENT >100 Abnormal None Seen [facility] Comment on above: Performed By: #### L [id number] ####[facility] ([facility] [place] [address] URINALYSIS WITH REFLEX CULTU REon 06-05-2023 BILIRUBIN, TOTAL PRESENCE IN URINE Negative Normal Negative [facility] Comment on above: Performed By: #### L [id number] ####[facility] ([facility])[address] [place] [address] Clarity (U) Clear Normal Clear [facility] Comment on above: Performed By: #### L [id number] ####[facility] ([facility])[address] [place] [address] Color (U) Yellow Normal Yellow [facility] Comment on above: Performed By: #### L [id number] ####[facility] ([facility])[address] [place] [address] Glucose (U) [Mass/Vol] Negative Normal Negative [facility] Comment on above: Performed By: #### L [id number] ####[facility] ([facility])[address] [place] [address] HEMOGLOBIN PRESENCE IN URINE Moderate Abnormal Negative [facility] Comment on above: Performed By: #### L [id number] ####[facility] ([facility])[address] [place] [address] Ketones Ql (U) Trace Abnormal Negative [facility] Comment on above: Performed By: #### L [id number] ####[facility] ([facility])[address] [place] [address] LEUKOCYTE ESTERASE PRESENCE IN URINE BY TEST STRIP Large Abnormal Negative [facility] Comment on above: Performed By: #### L [id number] ####[facility] ([facility])[address] [place] [address] NITRITE PRESENCE IN URINE Positive Abnormal Negative [facility] Comment on above: Performed By: #### L [id number] ####[facility] ([facility])[address] [place] [address] pH (U) 6.0 [pH] Normal 5.0-8.0 [facility] Comment on above: Performed By: #### L [id number] ####[facility] ([facility])[address] [place] [address] Protein (U) [Mass/Vol] 30 mg/dL Abnormal Negative [facility] Comment on above: Performed By: #### L [id number] ####[facility] ([facility])[address] [place] [id number] Specific gravity (U) [Rel density] 1.012 Low 1.015-1.020 [facility] Comment on above: Performed By: #### L [id number] ####[facility] ([facility])[address] [place] [id number] 30on 06-04-2023 30 The patient is Moderately Stable - Low risk of patient condition declining or worsening The patient's goals for the shift include comfort The clinical goals for the shift include VSS Normal [facility] CT CHEST WO CONon 10-31-2022 CT CHEST [...] by: MIGUE REYNOSO Date: 2022-10-31 17:34 Normal [facility] HEMOGLOBINon 10-31-2022 Hemoglobin (Bld) [Mass/Vol] 11.8 g/dL Critically low 12.0-16.0 [facility] Comment on above: Performed By: #### C [id number] #### [facility] [address] [place] [address] Dr. Kayley Hatfield BUNon 10-10-2022 Urea nitrogen [Mass/Vol] 13.0 mg/dL Normal 7.0-18.0 [facility] Comment on above: Performed By: #### L DH #### [facility] [address] [place] [address] Dr. Kayley Hatfield CALCIUMon 10-10-2022 Calcium [Mass/Vol] 9.7 mg/dL Normal 8.5-10.1 [facility] Comment on above: Performed By: #### L DH #### [facility] [address] [place] [address] Dr. Kayley Hatfield CREATININEon 10-10-2022 Creatinine [Mass/Vol] 1.19 mg/dL Critically high 0.55-1.02 [facility] Comment on above: Performed By: #### L DH #### [facility] [address] [place] [address] Dr. Kayley Hatfield EGFR-AF WALLISIAN 55 mL/min/1.73m2 Critically low >=60 [facility] Comment on above: Performed By: #### L DH #### [facility] [address] [place] [address] Dr. Kayley Hatfield EGFR-NON AF WALLISIAN 46 mL/min/1.73m2 Critically low >=60 [facility] Comment on above: Performed By: #### L DH #### [facility] [address] [place] [address] Dr. Kayley Hatfield CRPon 10-10-2022 CRP [Mass/Vol] mg/L Normal <=1.0 [facility] Comment on above: Performed By: #### L DH #### [facility] [address] [place] [address] Dr. Kayley Hatfield MAGNESIUMon 10-10-2022 Magnesium [Mass/Vol] 1.7 mg/dL Critically low 1.8-2.4 [facility] Comment on above: Performed By: #### L DH #### [facility] [address] [place] [address] Dr. Kayley Hatfield PHOSPHORUSon 10-10-2022 Phosphate [Mass/Vol] 4.0 mg/dL Normal 2.6-4.7 [facility] Comment on above: Performed By: #### L DH #### [facility] [address] [place] [address] Dr. Kayley Hatfield SED RATE WESTERGRENon 2022 SED RATE 25 mm/hr Normal <=30 [facility] Comment on above: Performed By: #### P RTELEC #### [facility] [address] [place] [address] Dr. Kayley Hatfield CBC AUTO DIFFon 05-01-2022 BASO # 0.1 103/ul Normal 0.0-0.1 [facility] Comment on above: Performed By: #### P RBC #### [facility] [address] [place] [address] Dr. Kayley Hatfield Basophils/100 WBC (Bld) 0.5 % Normal 0.2-2.0 [facility] Comment on above: Performed By: #### P RBC #### [facility] [address] [place] [address] Dr. Kayley Hatfield EO # 0.2 103/ul Normal 0.0-0.7 [facility] Comment on above: Performed By: #### P RBC #### [facility] [address] [place] [address] Dr. Kayley Hatfield Eosinophils/100 WBC (Bld) 1.2 % Normal 0.9-7.0 [facility] Comment on above: Performed By: #### P RBC #### [facility] [address] [place] [address] Dr. Kayley Hatfield Erythrocyte distribution width (RBC) [Ratio] 14.9 % Normal 11.0-15.0 [facility] Comment on above: Performed By: #### P RBC #### [facility] [address] [place] [address] Dr. Kayley Hatfield Hematocrit (Bld) [Volume fraction] 34.2 % Critically low 36.0-48.0 [facility] Comment on above: Performed By: #### P RBC #### [facility] [address] [place] [address] Dr. Kayley Hatfield Hemoglobin (Bld) [Mass/Vol] 10.3 g/dL Critically low 12.0-16.0 [facility] Comment on above: Performed By: #### P RBC #### [facility] [address] [address] [address] Kayley Hatfield IG # 0.19 10e3/ul Critically high 0.00-0.03 [facility] Comment on above: Performed By: #### P RBC #### [facility] [address] [place] [address] Dr. Kayley Hatfield IG % 1.3 % Critically high 0.0-0.5 [facility] Comment on above: Performed By: #### P RBC #### [facility] [address] [place] [address] Dr. Kayley Hatfield LYMPH # 1.1 103/ul Critically low 1.2-3.8 [facility] Comment on above: Performed By: #### P RBC #### [facility] [address] [place] [address] Dr. Kayley Hatfield Lymphocytes/100 WBC (Bld) 7.3 % Critically low 20.5-60.0 [facility] Comment on above: Performed By: #### P RBC #### [facility] [address] [place] [address] Dr. Kayley Hatfield MANUAL DIFF REQ NO Normal [facility] Comment on above: Performed By: #### P RBC #### [facility] [address] [place] [address] Dr. Kayley Hatfield MCH (RBC) [Entitic mass] 28.4 pg Normal 26.7-34.0 [facility] Comment on above: Performed By: #### P RBC #### [facility] [address] [place] [address] Dr. Kayley Hatfield MCHC (RBC) [Mass/Vol] 30.1 g/dL Normal 29.9-35.2 [facility] Comment on above: Performed By: #### P RBC #### [facility] [address] [address] [address] Kayley Hatfield MCV (RBC) [Entitic vol] 94.2 fL Normal 81.0-99.0 [facility] Comment on above: Performed By: #### P RBC #### [facility] [address] [address] [address] Kayley Htafield MONO # 0.6 103/ul Normal 0.3-0.8 [facility] Comment on above: Performed By: #### P RBC #### [facility] [address] [address] [address] Kayley Hatfield Monocytes/100 WBC (Bld) 4.0 % Normal 1.7-12.0 [facility] Comment on above: Performed By: #### P RBC #### [facility] [address] [place] [address] Dr. Kayley Hatfield NEUT # 12.5 103/ul Critically high 1.4-6.5 [facility] Comment on above: Performed By: #### P RBC #### [facility] [address] [place] [address] Dr. Kayley Hatfield Neutrophils/100 WBC (Bld) 85.7 % Critically high 43.0-75.0 [facility] Comment on above: Performed By: #### P RBC #### [facility] [address] [address] [address] Kayley Hatfield Platelet mean volume (Bld) [Entitic vol] 8.5 fL Critically low 9.5-13.5 [facility] Comment on above: Performed By: #### P RBC #### [facility] [address] [place] [address] Dr. Kayley Hatfield PLT 574 103/ul Critically high 150-450 [facility] Comment on above: Performed By: #### P RBC #### [facility] [address] [address] [address] Kayley Hatfield RBC 3.63 106/ul Critically low 4.20-5.40 [facility] Comment on above: Performed By: #### P RBC #### [facility] [address] [place] [address] Dr. Kayley Hatfield WBC 14.6 103/ul Critically high 4.0-11.0 [facility] Comment on above: Performed By: #### P RBC #### [facility] [address] [place] [address] Dr. Kayley Hatfield MAGNESIUMon 05-01-2022 Magnesium [Mass/Vol] 2.1 mg/dL Normal 1.8-2.4 [facility] Comment on above: Performed By: #### O BSCRN #### [facility] [address] [place] [address] Dr. Kayley Hatfield PROF CHEM 8 (BAS METB)on Anion gap [Moles/Vol] 8.6 mmol/L Normal [facility] Comment on above: Performed By: #### O BSCRN #### [facility] [address] [place] [address] Dr. Kayley Hatfield Calcium [Mass/Vol] 9.0 mg/dL Normal 8.5-10.1 [facility] Comment on above: Performed By: #### O BSCRN #### [facility] [address] [place] [address] Dr. Kayley Hatfield Chloride [Moles/Vol] 101 mmol/L Normal 98-107 [facility] Comment on above: Performed By: #### O BSCRN #### [facility] [address] [place] [address] Dr. Kayley Hatfield CO2 [Moles/Vol] 33.0 mmol/L Critically high 21.0-32.0 [facility] Comment on above: Performed By: #### O BSCRN #### [facility] [address] [place] [address] Dr. Kayley Hatfield Creatinine [Mass/Vol] 0.94 mg/dL Normal 0.55-1.02 [facility] Comment on above: Performed By: #### O BSCRN #### [facility] [address] [place], [place] [id number] Dr. Kayley Hatfield EGFR-AF WALLISIAN >60 Normal >=60 [facility] Comment on above: Performed By: #### O BSCRN #### [facility] [address] [place] [address] Dr. Kayley Hatfield EGFR-NON AF WALLISIAN >60 Normal >=60 [facility] Comment on above: Performed By: #### O BSCRN #### [facility] [address] [address] [address] Kayley Hatfield Glucose [Mass/Vol] 143 mg/dL Critically high 74-106 [facility] Comment on above: Performed By: #### O BSCRN #### [facility] [address] [place] [address] Dr. Kayley Hatfield Potassium [Moles/Vol] 4.6 mmol/L Normal 3.5-5.1 [facility] Comment on above: Performed By: #### O BSCRN #### [facility] [address] [place] [address] Dr. Kayley Hatfield Sodium [Moles/Vol] 138 mmol/L Normal 136-145 [facility] Comment on above: Performed By: #### O BSCRN #### [facility] [address] [place] [address] Dr. Kayley Hatfield Urea nitrogen [Mass/Vol] 15.0 mg/dL Normal 7.0-18.0 [facility] Comment on above: Performed By: #### O BSCRN #### [facility] [address] [place] [address] Dr. Kayley Hatfield Urea nitrogen/Creatinine [Mass ratio] 16.0 mg/mg Normal [facility] Comment on above: Performed By: #### O BSCRN #### [facility] [address] [place] [address] Dr. Kayley Hatfield CBC AUTO DIFFon 04-26-2022 BASO # 0.1 103/ul Normal 0.0-0.1 [facility] Comment on above: Performed By: #### P RBC #### [facility] [address] [place] [address] Dr. Kyaley Hatfield Basophils/100 WBC (Bld) 0.5 % Normal 0.2-2.0 [facility] Comment on above: Performed By: #### P RBC #### [facility] [address] [place] [address] Dr. Kayley Hatfield EO # 0.2 103/ul Normal 0.0-0.7 [facility] Comment on above: Performed By: #### P RBC #### [facility] [address] [address] [address] Kayley Hatfield Eosinophils/100 WBC (Bld) 1.8 % Normal 0.9-7.0 [facility] Comment on above: Performed By: #### P RBC #### [facility] [address] [place] [address] Dr. Kayley Hatfield Erythrocyte distribution width (RBC) [Ratio] 14.7 % Normal 11.0-15.0 [facility] Comment on above: Performed By: #### P RBC #### [facility] [address] [place] [address] Dr. Kayley Hatfield Hematocrit (Bld) [Volume fraction] 32.0 % Critically low 36.0-48.0 [facility] Comment on above: Performed By: #### P RBC #### [facility] [address] [place] [address] Dr. Kayley Hatfield Hemoglobin (Bld) [Mass/Vol] 9.9 g/dL Critically low 12.0-16.0 [facility] Comment on above: Performed By: #### P RBC #### [facility] [address] [place] [address] Dr. Kayley Hatfield IG # 0.07 10e3/ul Critically high 0.00-0.03 [facility] Comment on above: Performed By: #### P RBC #### [facility] [address] [place] [address] Dr. Kayley Hatfield IG % 0.6 % Critically high 0.0-0.5 [facility] Comment on above: Performed By: #### P RBC #### [facility] [address] [place] [address] Dr. Kayley Hatfield LYMPH # 1.2 103/ul Normal 1.2-3.8 [facility] Comment on above: Performed By: #### P RBC #### [facility] [address] [place] [address] Dr. Kayley Hatfield Lymphocytes/100 WBC (Bld) 10.9 % Critically low 20.5-60.0 [facility] Comment on above: Performed By: #### P RBC #### [facility] [address] [place] [address] Dr. Kayley Hatfield MANUAL DIFF REQ NO Normal [facility] Comment on above: Performed By: #### P RBC #### [facility] [address] [place] [address] Dr. Kayley Hatfield MCH (RBC) [Entitic mass] 28.4 pg Normal 26.7-34.0 [facility] Comment on above: Performed By: #### P RBC #### [facility] [address] [place] [address] Dr. Kayley Hatfield MCHC (RBC) [Mass/Vol] 30.9 g/dL Normal 29.9-35.2 [facility] Comment on above: Performed By: #### P RBC #### [facility] [address] [place] [address] Dr. Kayley Hatfield MCV (RBC) [Entitic vol] 92.0 fL Normal 81.0-99.0 [facility] Comment on above: Performed By: #### P RBC #### [facility] [address] [place] [address] Dr. Kayley Hatfield MONO # 1.4 103/ul Critically high 0.3-0.8 [facility] Comment on above: Performed By: #### P RBC #### [facility] [address] [place] [address] Dr. Kayley Hatfield Monocytes/100 WBC (Bld) 11.9 % Normal 1.7-12.0 [facility] Comment on above: Performed By: #### P RBC #### [facility] [address] [place] [address] Dr. Kayley Hatfield NEUT # 8.4 103/ul Critically high 1.4-6.5 [facility] Comment on above: Performed By: #### P RBC #### [facility] [address] [place] [address] Dr. Kayley Hatfield Neutrophils/100 WBC (Bld) 74.3 % Normal 43.0-75.0 [facility] Comment on above: Performed By: #### P RBC #### [facility] [address] [place] [address] Dr. Kayley Hatfield Platelet mean volume (Bld) [Entitic vol] 8.8 fL Critically low 9.5-13.5 [facility] Comment on above: Performed By: #### P RBC #### [facility] [address] [place] [address] Dr. Kayley Hatfield PLT 953 103/ul Critically high 150-450 [facility] Comment on above: Performed By: #### P RBC #### [facility] [address] [place] [address] Dr. Kayley Hatfield RBC 3.48 106/ul Critically low 4.20-5.40 [facility] Comment on above: Performed By: #### P RBC #### [facility] [address] [place] [address] Dr. Kayley Hatfield WBC 11.3 103/ul Critically high 4.0-11.0 [facility] Comment on above: Performed By: #### P RBC #### [facility] [address] [place] [address] Dr. Kayley Hatfield POINT OF CARE GLUCOSEon 04-08 Glucose [Mass/Vol] 225 mg/dL Critically high 74-106 [facility] Comment on above: Performed By: #### B LDCX1 #### [facility] [address] [place] [address] Dr. Kayley Hatfield PROF CHEM 8 (BAS METB)on Anion gap [Moles/Vol] 10.7 mmol/L Normal [facility] Comment on above: Performed By: #### P RBC #### [facility] [address] [address] [address] Kayley Hatfield Calcium [Mass/Vol] 9.2 mg/dL Normal 8.5-10.1 [facility] Comment on above: Performed By: #### P RBC #### [facility] [address] [place] [address] Dr. Kayley Hatfield Chloride [Moles/Vol] 103 mmol/L Normal 98-107 [facility] Comment on above: Performed By: #### P RBC #### [facility] [address] [place] [address] Dr. Kayley Hatfield CO2 [Moles/Vol] 29.2 mmol/L Normal 21.0-32.0 [facility] Comment on above: Performed By: #### P RBC #### [facility] [address] [place] [address] Dr. Kayley Hatfield Creatinine [Mass/Vol] 0.85 mg/dL Normal 0.55-1.02 [facility] Comment on above: Performed By: #### P RBC #### [facility] [address] [place] [address] Dr. Kayley Hatfield EGFR-AF WALLISIAN >60 Normal >=60 [facility] Comment on above: Performed By: #### P RBC #### [facility] [address] [place] [address] Dr. Kayley Hatfield EGFR-NON AF WALLISIAN >60 Normal >=60 [facility] Comment on above: Performed By: #### P RBC #### [facility] [address] [place] [address] Dr. Kayley Hatfield Glucose [Mass/Vol] 81 mg/dL Normal 74-106 [facility] Comment on above: Performed By: #### P RBC #### [facility] [address] [place] [address] Dr. Kayley Hatfield Potassium [Moles/Vol] 3.9 mmol/L Normal 3.5-5.1 [facility] Comment on above: Performed By: #### P RBC #### [facility] [address] [place] [address] Dr. Kayley Hatfield Sodium [Moles/Vol] 139 mmol/L Normal 136-145 [facility] Comment on above: Performed By: #### P RBC #### [facility] [address] [address] [address] Kayley Hatfield Urea nitrogen [Mass/Vol] 9.0 mg/dL Normal 7.0-18.0 [facility] Comment on above: Performed By: #### P RBC #### [facility] [address] [address] [address] Kayley Hatfield Urea nitrogen/Creatinine [Mass ratio] 10.6 mg/mg Normal [facility] Comment on above: Performed By: #### P RBC #### [facility] [address] [address] [address] Kayley Hatfield XR CHEST 2 Von [...] for differences in technique. Electronically authenticated by: IMGUE REYNOSO Date: 2022-04-26 09:59 Normal [facility] BNPon 04-25-2022 Natriuretic peptide B (Bld) [Mass/Vol] 234.0 pg/mL Normal <=900.0 [facility] Comment on above: Performed By: #### P RTELEC #### [facility] [address] [address] [address] Kayley Hatfield CBC AUTO DIFFon 04-25-2022 BASO # 0.1 103/ul Normal 0.0-0.1 [facility] Comment on above: Performed By: #### P RBC #### [facility] [address] [address] [address] Kayley Hatfield Basophils/100 WBC (Bld) 0.4 % Normal 0.2-2.0 [facility] Comment on above: Performed By: #### P RBC #### [facility] [address] [address] [address] Kayley Hatfield EO # 0.2 103/ul Normal 0.0-0.7 [facility] Comment on above: Performed By: #### P RBC #### [facility] [address] [address] [address] Kayley Hatfield Eosinophils/100 WBC (Bld) 1.0 % Normal 0.9-7.0 [facility] Comment on above: Performed By: #### P RBC #### [facility] [address] [place] [address] Dr. Kayley Hatfield Erythrocyte distribution width (RBC) [Ratio] 14.8 % Normal 11.0-15.0 [facility] Comment on above: Performed By: #### P RBC #### [facility] [address] [address] [address] Kayley Hatfield Hematocrit (Bld) [Volume fraction] 35.4 % Critically low 36.0-48.0 [facility] Comment on above: Performed By: #### P RBC #### [facility] [address] [address] [address] Kayley Hatfield Hemoglobin (Bld) [Mass/Vol] 10.9 g/dL Critically low 12.0-16.0 [facility] Comment on above: Performed By: #### P RBC #### [facility] [address] [address] [address] Kayley Hatfield IG # 0.08 10e3/ul Critically high 0.00-0.03 [facility] Comment on above: Performed By: #### P RBC #### [facility] [address] [address] [address] Kayley Hatfield IG % 0.5 % Normal 0.0-0.5 [facility] Comment on above: Performed By: #### P RBC #### [facility] [address] [address] [address] Kayley Hatfield LYMPH # 1.2 103/ul Normal 1.2-3.8 [facility] Comment on above: Performed By: #### P RBC #### [facility] [address] [address] [address] Kayley Hatfield Lymphocytes/100 WBC (Bld) 7.4 % Critically low 20.5-60.0 [facility] Comment on above: Performed By: #### P RBC #### [facility] [address] [address] [address] Kayley Hatfield MANUAL DIFF REQ NO Normal [facility] Comment on above: Performed By: #### P RBC #### [facility] [address] [place] [address] Dr. Kayley Hatfield MCH (RBC) [Entitic mass] 27.9 pg Normal 26.7-34.0 [facility] Comment on above: Performed By: #### P RBC #### [facility] [address] [place] [address] Dr. Kayley Hatfield MCHC (RBC) [Mass/Vol] 30.8 g/dL Normal 29.9-35.2 [facility] Comment on above: Performed By: #### P RBC #### [facility] [address] [place] [address] Dr. Kayley Hatfield MCV (RBC) [Entitic vol] 90.5 fL Normal 81.0-99.0 [facility] Comment on above: Performed By: #### P RBC #### [facility] [address] [address] [address] Kayley Hatfield MONO # 1.5 103/ul Critically high 0.3-0.8 [facility] Comment on above: Performed By: #### P RBC #### [facility] [address] [place] [address] Dr. Kayley Hatfield Monocytes/100 WBC (Bld) 8.7 % Normal 1.7-12.0 [facility] Comment on above: Performed By: #### P RBC #### [facility] [address] [address] [address] Kayley Hatfield NEUT # 13.8 103/ul Critically high 1.4-6.5 [facility] Comment on above: Performed By: #### P RBC #### [facility] [address] [address] [address] Kayley Hatfield Neutrophils/100 WBC (Bld) 82.0 % Critically high 43.0-75.0 [facility] Comment on above: Performed By: #### P RBC #### [facility] [address] [address] [address] Kayley Hatfield Platelet mean volume (Bld) [Entitic vol] 8.9 fL Critically low 9.5-13.5 [facility] Comment on above: Performed By: #### P RBC #### [facility] [address] [place] [address] Dr. Kayley Hatfield PLT 1076 103/ul Critically high 150-450 [facility] Comment on above: Performed By: #### P RBC #### [facility] [address] [place] [address] Dr. Kayley Hatfield RBC 3.91 106/ul Critically low 4.20-5.40 [facility] Comment on above: Performed By: #### P RBC #### [facility] [address] [place] [address] Dr. Kayley Hatfield WBC 16.8 103/ul Critically high 4.0-11.0 [facility] Comment on above: Performed By: #### P RBC #### [facility] [address] [place] [address] HEAD WO CONon [...] by: MIGUE REYNOSO Date: 2022-04-25 14:59 Normal [facility] CTA CHEST WO W CONon 2 022 CTA CHEST WO W CON EXAMINATION: [...] MIGUE REYNOSO Date: 2022-04-25 15:18 Normal [facility] Covid-19 PCR (CVDTB)on 04-08 SARS-CoV-2 (COVID-19) RNA ELBA+probe Ql (Unsp spec) Not detected Normal NOT DETECTED [facility] Comment on above: Result Comment: When diagnostic [...] for this test is supported by the [employer] and Human Service's declaration that [...] longer be used). Performed By: #### C VDTB #### [facility] [address] [address] [address] Kayley Hatfield ER URINE PROFILEon 2 Bilirubin Ql (U) Negative Normal NEGATIVE [facility] Comment on above: Performed By: #### C VDTBH #### [facility] [id number] Kayley Hatfield Clarity (U) CLEAR Normal CLEAR [facility] Comment on above: Performed By: #### C VDTBH #### [facility] [address] [address] [address] Kayley Hatfield Color (U) LT. YELLOW Normal YELLOW [facility] Comment on above: Performed By: #### C VDTBH #### [facility] [address] [place] [address] Dr. Kayley Hatfield ERUAHBetsey A micrscopic examination will be performed if indicated. Normal [facility] Comment on above: Performed By: #### C VDTBH #### [facility] [address] [place] [address] Dr. Kayley Hatfield Glucose Ql (U) Negative Normal NEGATIVE [facility] Comment on above: Performed By: #### C VDTBH #### [facility] [address] [place] [address] Dr. Kayley Hatfield Hemoglobin Ql (U) TRACE-INTACT Abnormal NEGATIVE [facility] Comment on above: Performed By: #### C VDTBH #### [facility] [address] [place] [address] Dr. Kayley Hatfield Ketones Ql (U) Negative Normal NEGATIVE [facility] Comment on above: Performed By: #### C VDTBH #### [facility] [address] [place] [address] Dr. Kayley Hatfield LEUKOCYTES Negative Normal NEGATIVE [facility] Comment on above: Performed By: #### C VDTBH #### [facility] [address] [place] [address] Dr. Kayley Hatfield Nitrite Ql (U) Negative Normal NEGATIVE [facility] Comment on above: Performed By: #### C VDTBH #### [facility] [address] [place] [address] Dr. Kayley Hatfield pH (U) 8.0 [pH] Normal 5-9 [facility] Comment on above: Performed By: #### C VDTBH #### [facility] [address] [place] [address] Dr. Kayley Hatfield SPEC GRAVITY 1.010 Normal 1.005-<=1.025 [facility] Comment on above: Performed By: #### C VDTBH #### [facility] [address] [address] [address] Kayley Hatfield UA PROTEIN Negative Normal NEGATIVE/ TRACE [facility] Comment on above: Performed By: #### C VDTBH #### [facility] [address] [address] [address] Kayley Hatfield UR MICRO IND INDICATED Normal [facility] Comment on above: Performed By: #### C VDTBH #### [facility] [address] [address] [address] Kayley Hatfield Urobilinogen Qn (U) 0.2 {Lu'U}/dL Normal 0.2 - 1. 0 [facility] Comment on above: Performed By: #### C VDTBH #### [facility] [address] [place] [address] Dr. Kayley Hatfield LACTATE/LACTIC ACIDon 2021 Lactate [Moles/Vol] 1.1 mmol/L Normal 0.4-1.9 [facility] Comment on above: Performed By: #### P RTELEC #### [facility] [address] [address] [address] Kayley Hatfield PH VENOUS BLOODon 04-25-2022 PCO2 VENOUS 54.5 mmHg Critically high 40.0-52.0 [facility] Comment on above: Performed By: #### L DH #### [facility] [address] [place] [address] Dr. Kayley Hatfield pH VENOUS 7.385 Normal 7.330-7.430 [facility] Comment on above: Performed By: #### L DH #### [facility] [address] [address] [address] Kayley Hatfield POINT OF CARE GLUCOSEon 04-08 Glucose [Mass/Vol] 91 mg/dL Normal 74-106 [facility] Comment on above: Performed By: #### O BSCRN #### [facility] [address] [address] [address] Kayley Hatfield Glucose [Mass/Vol] 116 mg/dL Critically high 74-106 [facility] Comment on above: Performed By: #### O BSCRN #### [facility] [address] [address] [address] Kayley Hatfield PROF 14(COMP METB)on 04-25- 022 Albumin [Mass/Vol] 2.7 g/dL Critically low 3.4-5.0 [facility] Comment on above: Performed By: #### O BSCRN #### [facility] [address] [address] [address] Kayley Hatfield Albumin/Globulin [Mass ratio] 0.6 {ratio} Normal [facility] Comment on above: Performed By: #### O BSCRN #### [facility] [address] [place] [address] Dr. Kayley Hatfield ALP [Catalytic activity/Vol] 132 U/L Critically high 46-116 [facility] Comment on above: Performed By: #### O BSCRN #### [facility] [address] [place] [address] Dr. Kayley Hatfield ALT [Catalytic activity/Vol] 21 U/L Normal 14-59 [facility] Comment on above: Performed By: #### O BSCRN #### [facility] [address] [place] [address] Dr. Kayley Hatfield Anion gap [Moles/Vol] 8.1 mmol/L Normal [facility] Comment on above: Performed By: #### O BSCRN #### [facility] [address] [address] [address] Kayley Hatfield AST [Catalytic activity/Vol] 23 U/L Normal 15-37 [facility] Comment on above: Performed By: #### O BSCRN #### [facility] [address] [place] [address] Dr. Kayley Hatfield Bilirubin [Mass/Vol] 0.3 mg/dL Normal 0.2-1.0 [facility] Comment on above: Performed By: #### O BSCRN #### [facility] [address] [place] [address] Dr. Kayley Hatfield Calcium [Mass/Vol] 9.4 mg/dL Normal 8.5-10.1 [facility] Comment on above: Performed By: #### O BSCRN #### [facility] [address] [place] [address] Dr. Kayley Hatfield Chloride [Moles/Vol] 100 mmol/L Normal 98-107 [facility] Comment on above: Performed By: #### O BSCRN #### [facility] [address] [place] [address] Dr. Kayley Hatfield CO2 [Moles/Vol] 31.8 mmol/L Normal 21.0-32.0 [facility] Comment on above: Performed By: #### O BSCRN #### [facility] [address] [place] [address] Dr. Kayley Hatfield Creatinine [Mass/Vol] 0.79 mg/dL Normal 0.55-1.02 [facility] Comment on above: Performed By: #### O BSCRN #### [facility] [address] [place] [address] Dr. Kayley Hatfield EGFR-AF WALLISIAN >60 Normal >=60 [facility] Comment on above: Performed By: #### O BSCRN #### [facility] [address] [place] [address] Dr. Kayley Hatfield EGFR-NON AF WALLISIAN >60 Normal >=60 [facility] Comment on above: Performed By: #### O BSCRN #### [facility] [address] [place] [address] Dr. Kayley Hatfield Globulin (S) [Mass/Vol] 4.2 g/dL Normal [facility] Comment on above: Performed By: #### O BSCRN #### [facility] [address] [address] [address] Kayley Hatfield Glucose [Mass/Vol] 134 mg/dL Critically high 74-106 [facility] Comment on above: Performed By: #### O BSCRN #### [facility] [address] [place] [address] Dr. Kayley Hatfield Potassium [Moles/Vol] 3.9 mmol/L Normal 3.5-5.1 [facility] Comment on above: Performed By: #### O BSCRN #### [facility] [address] [place] [address] Dr. Kayley Hatfield Protein [Mass/Vol] 6.9 g/dL Normal 6.4-8.2 [facility] Comment on above: Performed By: #### O BSCRN #### [facility] [address] [place] [address] Dr. Kayley Hatfield Sodium [Moles/Vol] 136 mmol/L Normal 136-145 [facility] Comment on above: Performed By: #### O BSCRN #### [facility] [address] [place] [address] Dr. Kayley Hatfield Urea nitrogen [Mass/Vol] 10.0 mg/dL Normal 7.0-18.0 [facility] Comment on above: Performed By: #### O BSCRN #### [facility] [address] [place] [address] Dr. Kayley Hatfield Urea nitrogen/Creatinine [Mass ratio] 12.7 mg/mg Normal [facility] Comment on above: Performed By: #### O BSCRN #### [facility] [address] [place] [address] Dr. Kayley Hatfield PROTIMEon 04-25-2022 INR Coag (PPP) [Relative time] 1.08 {INR} Normal [facility] Comment on above: Performed By: #### P RTELEC #### [facility] [address] [place] [address] Dr. Kayley Hatfield INR GUIDELINES SEE BELOW Normal [facility] Comment on above: Result Comment: JOAQUIM RED INR: 2.0 - 3.0 CONDITIONS NOT LISTED BELOW 2.5 - 3.5 FOR PROSTHETIC HEART VALVE REPLACEMENT 2.5 - 3.5 RECURRENT THROMBOSIS Performed By: #### P RTELEC #### [facility] [address] [place] [address] Dr. Kayley Hatfield PT Coag (PPP) [Time] 11.6 s Normal 9.0-11.6 [facility] Comment on above: Performed By: #### P RTELEC #### [facility] [address] [place] [address] Dr. Kayley Hatfield PTTon 04-25-2022 aPTT Coag (Bld) [Time] 31.1 s Normal 22.3-36.2 [facility] Comment on above: Performed By: #### P RTELEC #### [facility] [address] [place] [address] Dr. Kayley Hatfield TROPONIN, HIGH SENSITIVITYon 04-25-2022 HSTROP 9.6 pg/mL Normal 4.0-51.3 [facility] Comment on above: Result Comment: CUT- OFF POINTS HAVE BEEN ESTABLISHED BASED ON THE FOURTH UNIVERSAL DEFINITIONS OF MYOCARDIAL INFARCTION. THE UPPER REFERENCE LIMIT (URL) OF TROPONIN, DEFINED THE 99TH PERCENTILE OF cTnI DISTRIBUTION IN A REFERENCE POPULATION, HAS BEEN CONFIRMED THE DECISION THRESHOLD FOR AR DIAGNOSIS. Performed By: #### P RTELEC #### [facility] [address] [place] [address] Dr. Kayley Hatfield TSHon 04-25-2022 TSH 1.431 uIU/mL Normal 0.358-3.740 [facility] Comment on above: Performed By: #### P RTELEC #### [facility] [address] [place] [address] Dr. Kayley Hatfield URINE MICROSCOPIC ONLYon BACTERIA NONE SEEN Normal NONE SEEN [facility] Comment on above: Performed By: #### C VDTBH #### [facility] [address] [place] [address] Dr. Kayley Hatfield Bacteria identified Cx Nom (U) NOT INDICATED Normal [facility] Comment on above: Performed By: #### C VDTBH #### [facility] [address] [place] [address] Dr. Kayley Hatfield CAST NONE SEEN Normal NONE SEEN [facility] Comment on above: Performed By: #### C VDTBH #### [facility] [address] [place] [address] Dr. Kayley Hatfield Crystals LM Nom (Urine sed) NONE SEEN Normal NONE SEEN [facility] Comment on above: Performed By: #### C VDTBH #### [facility] [address] [place] [address] Dr. Kayley Hatfield Epithelial cells LM Ql (Urine sed) FEW Abnormal NONE SEEN /RARE [facility] Comment on above: Performed By: #### C VDTBH #### [facility] [address] [place] [address] Dr. Kayley Hatfield MUCOUS NONE SEEN Normal NONE SEEN [facility] Comment on above: Performed By: #### C VDTBH #### [facility] [address] [place] [address] Dr. Kayley Hatfield RBC 2-5 Abnormal 0-2 [facility] Comment on above: Performed By: #### C VDTBH #### [facility] [address] [place] [address] Dr. Kayley Hatfield WBC NONE SEEN Normal NONE SEEN [facility] Comment on above: Performed By: #### C VDTBH #### [facility] [address] [place] [address] Dr. Kayley Hatfield IMMUNOFIXATION(KENNETH),PROTEIN ELEC(PE),[facility] 03-31-2022 Albumin [Mass/Vol] 3.6 g/dL Normal 2.9-4.4 [facility] Comment on above: Performed By: #### B [id number] #### [facility] [address] [place] [address] Dr. Kayley Hatfield Albumin/Globulin [Mass ratio] 1.6 {ratio} Normal 0.7-1.7 [facility] Comment on above: Performed By: #### B [id number] #### [facility] [address] [place] [address] Dr. Kayley Hatfield Bibmz-7-Ildutlxx 0.3 g/dL Normal 0.0-0.4 [facility] Comment on above: Performed By: #### B [id number] #### [facility] [address] [place] [address] Dr. Kayley Hatfield Sseet-7-Jjrcuims 0.8 g/dL Normal 0.4-1.0 [facility] Comment on above: Performed By: #### B LDCX1 #### [facility] [address] [address] [address] Kayley Hatfield Beta Globulin 1.0 g/dL Normal 0.7-1.[address] [facility] Comment on above: Performed By: #### B LDCX1 #### [facility] [address] [place] [address] Dr. Kayley Hatfield Free [place] Lt Chains,S 16.0 mg/L Normal 3.3-19.4 [facility] Comment on above: Performed By: #### B LDCX1 #### [facility] [address] [place] [address] Dr. Kayley Hatfield Free [place] Lt Chains,S 10.1 mg/L Normal 5.7-26.3 [facility] Comment on above: Performed By: #### B LDCX1 #### [facility] [address] [place] [address] Dr. Kayley Hatfield Gamma Globulin 0.4 g/dL Normal 0.4-1.8 [facility] Comment on above: Performed By: #### B LDCX1 #### [facility] [address] [place] [address] Dr. Kayley Hatfield Globulin (S) [Mass/Vol] 2.4 g/dL Normal 2.2-3.9 [facility] Comment on above: Performed By: #### B [id number] #### [facility] [address] [place] [address] Dr. Kayley Hatfield Immunofixation Result, Serum Comment Normal [facility] Comment on above: Result Comment: No m onoclonality detected. Performed By: #### B LDCX1 #### [facility] [address] [place] [address] Dr. Kayley Hatfield Immunoglobulin A, Qn, Serum 128 mg/dL Normal 87-352 [facility] Comment on above: Performed By: #### B LDCX1 #### [facility] [address] [place] [address] Dr. Kayley Hatfield Immunoglobulin G, Qn, Serum 487 mg/dL Critically low 586-1602 [facility] Comment on above: Performed By: #### B LDCX1 #### [facility] [address] [place] [address] Dr. Kayley Htafield Immunoglobulin M, Qn, Serum 38 mg/dL Normal 26-217 [facility] Comment on above: Performed By: #### B LDCX1 #### [facility] [address] [place] [address] Dr. Kayley Hatfield [place]/Lambda Ratio, S 1.58 Normal 0.26-1.65 [facility] Comment on above: Performed By: #### B LDCX1 #### [facility] [address] [place] [address] Dr. Kayley Hatfield M-Sandip Not Observed Normal Not Observed [facility] Comment on above: Performed By: #### B LDCX1 #### [facility] [address] [place] [address] Dr. Kayley Hatfield PDF . Normal [facility] Comment on above: Performed By: #### B LDCX1 #### [facility] [address] [place] [address] Dr. Kayley Hatfield Please note: Comment Normal [facility] Comment on above: Result Comment: Prot ein electrophoresis scan will follow via computer, mail, or breakfast cook delivery. Performed By: #### B LDCX1 #### [facility] [address] [place] [address] Dr. Kayley Hatfield Protein [Mass/Vol] 6.0 g/dL Normal 6.0-8.5 [facility] Comment on above: Performed By: #### B LDCX1 #### [facility] [address] [place] [address] Dr. Kayley Hatfield CBC AUTO DIFFon 03-30-2022 BASO # 0.1 103/ul Normal 0.0-0.1 [facility] Comment on above: Performed By: #### P RBC #### [facility] [address] [place] [address] Dr. Kayley Hatfield Basophils/100 WBC (Bld) 0.4 % Normal 0.2-2.0 [facility] Comment on above: Performed By: #### P RBC #### [facility] [address] [address] [address] Kayley Hatfield EO # 0.2 103/ul Normal 0.0-0.7 [facility] Comment on above: Performed By: #### P RBC #### [facility] [address] [address] [address] Kayley Hatfield Eosinophils/100 WBC (Bld) 1.1 % Normal 0.9-7.0 [facility] Comment on above: Performed By: #### P RBC #### [facility] [address] [place] [address] Dr. Kayley Hatfield Erythrocyte distribution width (RBC) [Ratio] 0.0 % Critically low 11.0-15.0 [facility] Comment on above: Performed By: #### P RBC #### [facility] [address] [place] [address] Dr. Kayley Hatfield Hematocrit (Bld) [Volume fraction] 24.0 % Critically low 36.0-48.0 [facility] Comment on above: Performed By: #### P RBC #### [facility] [address] [place] [address] Dr. Kayley Hatfield Hemoglobin (Bld) [Mass/Vol] 7.2 g/dL Critically low 12.0-16.0 [facility] Comment on above: Performed By: #### P RBC #### [facility] [address] [place] [address] Dr. Kayley Hatfield IG # 0.10 10e3/ul Critically high 0.00-0.03 [facility] Comment on above: Performed By: #### P RBC #### [facility] [address] [place] [address] Dr. Kayley Hatfield IG % 0.6 % Critically high 0.0-0.5 [facility] Comment on above: Performed By: #### P RBC #### [facility] [address] [place] [address] Dr. Kayley Hatfield LYMPH # 1.5 103/ul Normal 1.2-3.8 [facility] Comment on above: Performed By: #### P RBC #### [facility] [address] [address] [address] Kayley Hatfield Lymphocytes/100 WBC (Bld) 9.0 % Critically low 20.5-60.0 [facility] Comment on above: Performed By: #### P RBC #### [facility] [address] [address] [address] Kayley Hatfield MANUAL DIFF REQ NO Normal [facility] Comment on above: Performed By: #### P RBC #### [facility] [address] [address] [address] Kayley Hatfield MCH (RBC) [Entitic mass] 27.3 pg Normal 26.7-34.0 [facility] Comment on above: Performed By: #### P RBC #### [facility] [address] [place] [address] Dr. Kayley Hatfield MCHC (RBC) [Mass/Vol] 30.0 g/dL Normal 29.9-35.2 [facility] Comment on above: Performed By: #### P RBC #### [facility] [address] [place] [address] Dr. Kayley Hatfield MCV (RBC) [Entitic vol] 90.9 fL Normal 81.0-99.0 [facility] Comment on above: Performed By: #### P RBC #### [facility] [address] [place] [address] Dr. Kayley Hatfield MONO # 2.3 103/ul Critically high 0.3-0.8 [facility] Comment on above: Performed By: #### P RBC #### [facility] [address] [place] [address] Dr. Kayley Hatfield Monocytes/100 WBC (Bld) 13.8 % Critically high 1.7-12.0 [facility] Comment on above: Performed By: #### P RBC #### [facility] [address] [place] [address] Dr. Kayley Hatfield NEUT # 12.7 103/ul Critically high 1.4-6.5 [facility] Comment on above: Performed By: #### P RBC #### [facility] [address] [address] [address] Kayley Hatfield Neutrophils/100 WBC (Bld) 75.1 % Critically high 43.0-75.0 [facility] Comment on above: Performed By: #### P RBC #### [facility] [address] [address] [address] Kayley Hatfield Platelet mean volume (Bld) [Entitic vol] 8.9 fL Critically low 9.5-13.5 [facility] Comment on above: Performed By: #### P RBC #### [facility] [address] [address] [address] Kayley Hatfield PLT 782 103/ul Critically high 150-450 [facility] Comment on above: Performed By: #### P RBC #### [facility] [address] [place] [address] Dr. Kayley Hatfield RBC 2.64 106/ul Critically low 4.20-5.40 [facility] Comment on above: Performed By: #### P RBC #### [facility] [address] [address] [address] Kayley Hatfield WBC 16.9 103/ul Critically high 4.0-11.0 [facility] Comment on above: Performed By: #### P RBC #### [facility] [address] [place] [address] Dr. Kayley Hatfield PRBC LEUKOREDUCEDon 03-30-20 ABO and Rh group Nom (Bld) Cross Match Result Compatible Unit Blood Type O Pos Unit Number [id number] Status Information Transfused Product ID Red Blood Cells Product Code [id number] Cross Match Result Compatible Unit Blood Type O Pos Unit Number [id number] Status Information Transfused Product ID Red Blood Cells Product Code [id number] [facility] Comment on above: Performed By: #### P RBC #### [facility] [address] [address] [address] Kayley Hatfield PROF CHEM 8 (BAS METB)on Anion gap [Moles/Vol] 6.9 mmol/L Normal [facility] Comment on above: Performed By: #### P RBC #### [facility] [address] [address] [address] Kayley Hatfield Calcium [Mass/Vol] 8.7 mg/dL Normal 8.5-10.1 [facility] Comment on above: Performed By: #### P RBC #### [facility] [address] [address] [address] Kayley Hatfield Chloride [Moles/Vol] 101 mmol/L Normal 98-107 [facility] Comment on above: Performed By: #### P RBC #### [facility] [address] [address] [address] Kayley Hatfield CO2 [Moles/Vol] 33.3 mmol/L Critically high 21.0-32.0 [facility] Comment on above: Performed By: #### P RBC #### [facility] [address] [address] [address] Kayley Hatfield Creatinine [Mass/Vol] 0.83 mg/dL Normal 0.55-1.02 [facility] Comment on above: Performed By: #### P RBC #### [facility] [address] [address] [address] Kayley Hatfield EGFR-AF WALLISIAN >60 Normal >=60 [facility] Comment on above: Performed By: #### P RBC #### [facility] [address] [address] [address] Kayley Hatfield EGFR-NON AF WALLISIAN >60 Normal >=60 [facility] Comment on above: Performed By: #### P RBC #### [facility] [address] [address] [address] Kayley Hatfield Glucose [Mass/Vol] 94 mg/dL Normal 74-106 [facility] Comment on above: Performed By: #### P RBC #### [facility] [address] [address] [address] Kayley Hatfield Potassium [Moles/Vol] 4.2 mmol/L Normal 3.5-5.1 [facility] Comment on above: Performed By: #### P RBC #### [facility] [address] [address] [address] Kayley Hatfield Sodium [Moles/Vol] 137 mmol/L Normal 136-145 [facility] Comment on above: Performed By: #### P RBC #### [facility] [address] [place] [address] Dr. Kayley Hatfield Urea nitrogen [Mass/Vol] 15.0 mg/dL Normal 7.0-18.0 [facility] Comment on above: Performed By: #### P RBC #### [facility] [address] [place] [address] Dr. Kayley Hatfield Urea nitrogen/Creatinine [Mass ratio] 18.1 mg/mg Normal [facility] Comment on above: Performed By: #### P RBC #### [facility] [address] [place] [address] Dr. Kayley Hatfield PROTEIN ELECTROPHERESISon Albumin [Mass/Vol] 3.4 g/dL Normal 2.9-4.4 [facility] Comment on above: Performed By: #### P RTELEC #### [facility] [address] [place] [address] Dr. Kayley Hatfield Albumin/Globulin [Mass ratio] 1.3 {ratio} Normal 0.7-1.7 [facility] Comment on above: Performed By: #### P RTELEC #### [facility] [address] [place] [address] Dr. Kayley Hatfield Sjxay-7-Koaeyzrx 0.3 g/dL Normal 0.0-0.4 [facility] Comment on above: Performed By: #### P RTELEC #### [facility] [address] [place] [address] Dr. Kayley Hatfield Ztekn-0-Xfcadpdd 0.8 g/dL Normal 0.4-1.0 [facility] Comment on above: Performed By: #### P RTELEC #### [facility] [address] [place] [address] Dr. Kayley Hatfield Beta Globulin 1.0 g/dL Normal 0.7-1.[address] [facility] Comment on above: Performed By: #### P RTELEC #### [facility] [address] [place] [address] Dr. Kayley Hatfield Gamma Globulin 0.5 g/dL Normal 0.4-1.[address] [facility] Comment on above: Performed By: #### P RTELEC #### [facility] [address] [place] [address] Dr. Kayley Hatfield Globulin (S) [Mass/Vol] 2.6 g/dL Normal 2.2-3.9 [facility] Comment on above: Performed By: #### P RTELEC #### [facility] [address] [place] [address] Dr. Kayley Hatfield M-Sandip Not Observed Normal Not Observed [facility] Comment on above: Performed By: #### P RTELEC #### [facility] [address] [place] [address] Dr. Kayley Hatfield PDF . Normal [facility] Comment on above: Performed By: #### P RTELEC #### [facility] [address] [place] [address] Dr. Kayley Hatfield Please note: Comment Normal [facility] Comment on above: Result Comment: Prot ein electrophoresis scan will follow via computer, mail, or breakfast cook delivery. Performed By: #### P RTELEC #### [facility] [address] [place] [address] Dr. Kayley Hatfield Protein [Mass/Vol] 6.0 g/dL Normal 6.0-8.5 [facility] Comment on above: Performed By: #### P RTELEC #### [facility] [address] [place] [address] Dr. Kayley Hatfield XR CHEST 1 Von [...] TYSHAWN MOORE Date: 2022-03-30 06:17 Normal [facility] CBC W MANUAL DIFFon 03-29-20 22 ANISOCYTOSIS 2+ Normal [facility] Comment on above: Performed By: #### C VDTBH #### [facility] [address] [place] [address] Dr. Kayley Hatfield ATYPICAL LYMPH # Normal [facility] Comment on above: Performed By: #### C VDTBH #### [facility] [address] [place] [address] Dr. Kayley Hatfield ATYPICAL LYMPH % Normal [facility] Comment on above: Performed By: #### C VDTBH #### [facility] [address] [place] [address] Dr. Kayley Hatfield BAND # 0.0 103/ul Normal 0.0-0.3 [facility] Comment on above: Performed By: #### C VDTBH #### [facility] [address] [place] [address] Dr. Kayley Hatfield BAND % 0 % Normal 0-5 [facility] Comment on above: Performed By: #### C VDTBH #### [facility] [address] [address] [address] Kayley Hatfield BASOM # 0.59 103/ul Critically high 0.00-0.10 [facility] Comment on above: Performed By: #### C VDTBH #### [facility] [address] [place] [address] Dr. Kayley Hatfield BASOM % 3.0 % Critically high 0.2-2.0 [facility] Comment on above: Performed By: #### C VDTBH #### [facility] [address] [place] [address] Dr. Kayley Hatfield BLAST # Normal [facility] Comment on above: Performed By: #### C VDTBH #### [facility] [address] [address] [address] Kayley Hatfield BLAST % Normal [facility] Comment on above: Performed By: #### C VDTBH #### [facility] [address] [place] [address] Dr. Kayley Hatfield CORRECTED WBC Normal 4.0-11.0 [facility] Comment on above: Performed By: #### C VDTBH #### [facility] [address] [place] [address] Dr. Kayely Hatfield EOS # 0.40 103/ul Normal 0.00-0.70 [facility] Comment on above: Performed By: #### C VDTBH #### [facility] [address] [place] [address] Dr. Kayley Hatfield EOS% 2.0 % Normal 0.9-7.0 [facility] Comment on above: Performed By: #### C VDTBH #### [facility] [address] [place] [address] Dr. Kayley Hatfield HCT 31.1 % Critically low 36.0-48.0 [facility] Comment on above: Performed By: #### C VDTBH #### [facility] [address] [place] [address] Dr. Kayley Hatfield HGB 9.7 g/dl Critically low 12.0-16.0 [facility] Comment on above: Performed By: #### C VDTBH #### [facility] [address] [place] [address] Dr. Kayley Hatfield HYPOCHROMASIA 1+ Normal [facility] Comment on above: Performed By: #### C VDTBH #### [facility] [address] [place] [address] Dr. Kayley Hatfield LYMPHM # 4.75 103/ul Critically high 1.20-3.80 [facility] Comment on above: Performed By: #### C VDTBH #### [facility] [address] [place] [address] Dr. Kayley Hatfield LYMPHM% 24.0 % Normal 20.5-60.0 [facility] Comment on above: Performed By: #### C VDTBH #### [facility] [address] [place] [address] Dr. Kayley Hatfield MCH 27.0 pg Normal 26.7-34.0 [facility] Comment on above: Performed By: #### C VDTBH #### [facility] [address] [place] [address] Dr. Kayley Hatfield MCHC 31.2 g/dl Normal 29.9-35.2 [facility] Comment on above: Performed By: #### C VDTBH #### [facility] [address] [place] [address] Dr. Kayley Hatfield MCV 86.6 fL Normal 81.0-99.0 [facility] Comment on above: Performed By: #### C VDTBH #### [facility] [address] [place] [address] Dr. Kayley Hatfield METAMYELOCYTE # Normal [facility] Comment on above: Performed By: #### C VDTBH #### [facility] [address] [place] [address] Dr. Kayley Hatfield METAMYELOCYTE % Normal [facility] Comment on above: Performed By: #### C VDTBH #### [facility] [address] [place] [address] Dr. Kayley Hatfield MONOM# 0.59 103/ul Normal 0.30-0.80 [facility] Comment on above: Performed By: #### C VDTBH #### [facility] [address] [place] [address] Dr. Kayley Hatfield MONOM% 3.0 % Normal 1.7-12.0 [facility] Comment on above: Performed By: #### C VDTBH #### [facility] [address] [place] [address] Dr. Kayley Hatfield MPV 8.4 fL Critically low 9.5-13.[address] [facility] Comment on above: Performed By: #### C VDTBH #### [facility] [address] [address] [address] Kayley Hatfield MYELOCYTE # Normal [facility] Comment on above: Performed By: #### C VDTBH #### [facility] [address] [address] [address] Kayley Hatfield MYELOCYTE % Normal [facility] Comment on above: Performed By: #### C VDTBH #### [facility] [address] [address] [address] Kayley Hatfield NRBC Normal [facility] Comment on above: Performed By: #### C VDTBH #### [facility] [address] [address] [address] Kayley Hatfield OVALOCYTES SLIGHT Normal [facility] Comment on above: Performed By: #### C VDTBH #### [facility] [address] [address] [address] Kayley Hatfield PLT 950 103/ul Critically high 150-450 [facility] Comment on above: Performed By: #### C VDTBH #### [facility] [address] [address] [address] Kayley Hatfield RBC 3.59 106/ul Critically low 4.20-5.40 [facility] Comment on above: Performed By: #### C VDTBH #### [facility] [address] [place] [address] Dr. Kayley Hatfield RDW 26.6 % Critically high 11.0-15.0 [facility] Comment on above: Performed By: #### C VDTBH #### [facility] [address] [address] [address] Kayley Hatfield SEG # 13.46 103/ul Critically high 1.40-6.50 [facility] Comment on above: Performed By: #### C VDTBH #### [facility] [address] [address] [address] Kayley Hatfield SEG % 68.0 % Normal 43.0-75.0 [facility] Comment on above: Performed By: #### C VDTBH #### [facility] [address] [address] [address] Kayley Hatfield WBC 19.8 103/ul Critically high 4.0-11.0 [facility] Comment on above: Performed By: #### C VDTB #### [facility] [address] [address] [address] Kayley Hatfield PROF CHEM 8 (BAS METB)on Anion gap [Moles/Vol] 8.6 mmol/L Normal [facility] Comment on above: Performed By: #### L DH #### [facility] [address] [address] [address] Kayley Hatfield Calcium [Mass/Vol] 8.9 mg/dL Normal 8.5-10.1 [facility] Comment on above: Performed By: #### L DH #### [facility] [address] [place] [address] Dr. Kayley Hatfield Chloride [Moles/Vol] 102 mmol/L Normal 98-107 [facility] Comment on above: Performed By: #### L DH #### [facility] [address] [place] [address] Dr. aKyley Hatfield CO2 [Moles/Vol] 34.3 mmol/L Critically high 21.0-32.0 [facility] Comment on above: Performed By: #### L DH #### [facility] [address] [place] [address] Dr. Kayley Hatfield Creatinine [Mass/Vol] 0.86 mg/dL Normal 0.55-1.02 [facility] Comment on above: Performed By: #### L DH #### [facility] [address] [place] [address] Dr. Kayley Hatfield EGFR-AF WALLISIAN >60 Normal >=60 [facility] Comment on above: Performed By: #### L DH #### [facility] [address] [place] [address] Dr. Kayley Hatfield EGFR-NON AF WALLISIAN >60 Normal >=60 [facility] Comment on above: Performed By: #### L DH #### [facility] [address] [address] [address] Kayley Hatfield Glucose [Mass/Vol] 102 mg/dL Normal 74-106 [facility] Comment on above: Performed By: #### L #### [facility] [address] [address] [address] Kayley Hatfield Potassium [Moles/Vol] 3.9 mmol/L Normal 3.5-5.1 [facility] Comment on above: Performed By: #### L #### [facility] [address] [address] [address] Kayley Hatfield Sodium [Moles/Vol] 141 mmol/L Normal 136-145 [facility] Comment on above: Performed By: #### L #### [facility] [address] [address] [address] Kayley Hatfield Urea nitrogen [Mass/Vol] 20.0 mg/dL Critically high 7.0-18.0 [facility] Comment on above: Performed By: #### L #### [facility] [address] [address] [address] Kayley Hatfield Urea nitrogen/Creatinine [Mass ratio] 23.3 mg/mg Normal [facility] Comment on above: Performed By: #### L #### [facility] [address] [address] [address] Kayley Hatfield XR CHEST 1 Von [...] MIGUE REYNOSO Date: 2022-03-29 13:26 Normal The [facility] XR CHEST 1 V EXAMINATION: XR CHES [...] MIGUE REYNOSO Date: 2022-03-29 11:37 Normal The [facility] XR CHEST 1 V EXAMINATION: XR CHES [...] MIGUE REYNOSO Date: 2022-03-29 07:32 Normal The [facility] XR CHEST 1 V EXAM: XR CHEST [...] ASAEL ANAND Date: 2022-03-28 22:40 Normal [facility] CBC W MANUAL DIFFon 03-28-20 22 ANISOCYTOSIS 3+ Normal [facility] Comment on above: Performed By: #### C BCMAN #### [facility] [address] [place] [address] Dr. Kayley Hatfield ATYPICAL LYMPH # Normal [facility] Comment on above: Performed By: #### C BCMAN #### [facility] [address] [place] [address] Dr. Kayley Hatfield ATYPICAL LYMPH % Normal [facility] Comment on above: Performed By: #### C BCMAN #### [facility] [address] [place] [address] Dr. Kayley Hatfield BAND # 0.3 103/ul Normal 0.0-0.3 [facility] Comment on above: Performed By: #### C BCMAN #### [facility] [address] [place] [address] Dr. Kayley Hatfield BAND % 2 % Normal 0-5 [facility] Comment on above: Performed By: #### C BCMAN #### [facility] [address] [place] [address] Dr. Kayley Hatfield BASOM # 0.00 103/ul Normal 0.00-0.10 [facility] Comment on above: Performed By: #### C BCKATHY #### [facility] [address] [place] [address] Dr. Kayley Hatfield BASOM % 0.0 % Critically low 0.2-2.[address] [facility] Comment on above: Performed By: #### C BCMAN #### [facility] [address] [place] [address] Dr. Kayley Hatfield BLAST # Normal [facility] Comment on above: Performed By: #### C BCMAN #### [facility] [address] [place] [address] Dr. Kayley Hatfield BLAST % Normal [facility] Comment on above: Performed By: #### C BCMAN #### [facility] [address] [place], [place] [id number] Dr. Kayley Hatfield CORRECTED WBC Normal 4.0-11.0 [facility] Comment on above: Performed By: #### C ALONZO #### [facility] [address] [address] [address] Kayley Hatfield EOS # 0.00 103/ul Normal 0.00-0.70 [facility] Comment on above: Performed By: #### C ALONZO #### [facility] [address] [address] [address] Kayley Hatfield EOS% 0.0 % Critically low 0.9-7.0 [facility] Comment on above: Performed By: #### C ALONZO #### [facility] [address] [place] [address] Dr. Kayley Hatfield HCT 23.6 % Critically low 36.0-48.0 [facility] Comment on above: Performed By: #### C ALONZO #### [facility] [address] [place] [address] Dr. Kayley Hatfield HGB 6.8 g/dl Critically low 12.0-16.0 [facility] Comment on above: Performed By: #### C ALONZO #### [facility] [address] [place] [address] Dr. aKyley Hatfield HYPOCHROMASIA 3+ Normal [facility] Comment on above: Performed By: #### C ALONZO #### [facility] [address] [place] [address] Dr. Kayley Hatfield LYMPHM # 1.17 103/ul Critically low 1.20-3.80 [facility] Comment on above: Performed By: #### C ALONZO #### [facility] [address] [place] [address] Dr. Kayley Hatfield LYMPHM% 7.0 % Critically low 20.5-60.[address] [facility] Comment on above: Performed By: #### C ALONZO #### [facility] [address] [place] [address] Dr. Kayley Hatfield MCH 24.6 pg Critically low 26.7-34.[address] [facility] Comment on above: Performed By: #### C ALONZO #### [facility] [address] [address] [address] Kayley Hatfield MCHC 28.8 g/dl Critically low 29.9-35.[address] [facility] Comment on above: Performed By: #### C ALONZO #### [facility] [address] [address] [address] Kayley Hatfield MCV 85.5 fL Normal 81.0-99.0 [facility] Comment on above: Performed By: #### C ALONZO #### [facility] [address] [place] [address] Dr. Kayley Hatfield METAMYELOCYTE # Normal [facility] Comment on above: Performed By: #### C ALONZO #### [facility] [address] [place] [address] Dr. Kayley Hatfield METAMYELOCYTE % Normal [facility] Comment on above: Performed By: #### C ALONZO #### [facility] [address] [place] [address] Dr. Kayley Hatfield MONOM# 0.50 103/ul Normal 0.30-0.80 [facility] Comment on above: Performed By: #### C ALONZO #### [facility] [address] [place] [address] Dr. Kayley Hatfield MONOM% 3.0 % Normal 1.7-12.0 [facility] Comment on above: Performed By: #### C ALONZO #### [facility] [address] [place] [address] Dr. Kayley Hatfield MPV 8.6 fL Critically low 9.5-13.5 [facility] Comment on above: Performed By: #### C ALONZO #### [facility] [address] [place] [address] Dr. Kayley Hatfield MYELOCYTE # Normal [facility] Comment on above: Performed By: #### C ALONZO #### [facility] [address] [place] [address] Dr. Kayley Hatfield MYELOCYTE % Normal [facility] Comment on above: Performed By: #### C ALONZO #### [facility] [address] [address] [address] Kayley Hatfield NRBC Normal [facility] Comment on above: Performed By: #### C ALONZO #### [facility] [address] [address] [address] Kayley Hatfield OVALOCYTES SLIGHT Normal [facility] Comment on above: Performed By: #### C ALONZO #### [facility] [address] [address] [address] Kayley Hatfield PLT 1384 103/ul Critically high 150-450 [facility] Comment on above: Performed By: #### C ALONZO #### [facility] [address] [address] [address] Kayley Hatfield RBC 2.76 106/ul Critically low 4.20-5.40 [facility] Comment on above: Performed By: #### C ALONZO #### [facility] [address] [address] [address] Kayley Hatfield RDW 0.0 % Critically low 11.0-15.0 [facility] Comment on above: Performed By: #### C ALONZO #### [facility] [address] [address] [address] Kayley Hatfield SEG # 14.70 103/ul Critically high 1.40-6.50 [facility] Comment on above: Performed By: #### C ALONZO #### [facility] [address] [address] [address] Kayley Hatfield SEG % 88.0 % Critically high 43.0-75.0 [facility] Comment on above: Performed By: #### C ALONZO #### [facility] [address] [address] [address] Kayley Hatfield WBC 16.7 103/ul Critically high 4.0-11.0 [facility] Comment on above: Performed By: #### C ALONZO #### [facility] [address] [address] [address] Kayley Hatfield CRPon 03-28-2022 CRP [Mass/Vol] mg/L Normal <=1.0 [facility] Comment on above: Performed By: #### H GBHCT #### [facility] [address] [place] [address] Dr. Kayley Hatfield Covid-19 PCR ([facility])on 03-10 SARS-CoV-2 (COVID-19) RNA ELBA+probe Ql (Unsp spec) Not detected Normal NOT DETECTED The [facility] Comment on above: Result Comment: When diagnostic [...] for this test is supported by the [employer] and Human Service's declaration that [...] used). Performed By: #### P RBC #### [facility] [address] [place] [address] Dr. Kayley Hatfield ER URINE PROFILEon Bilirubin Ql (U) Negative Normal NEGATIVE [facility] Comment on above: Performed By: #### P RBC #### [facility] [address] [place] [address] Dr. Kayley Hatfield Clarity (U) CLEAR Normal CLEAR [facility] Comment on above: Performed By: #### P RBC #### [facility] [address] [place] [address] Dr. Kayley Hatfield Color (U) LT. YELLOW Normal YELLOW [facility] Comment on above: Performed By: #### P RBC #### [facility] [address] [place] [address] Dr. Kayley [place] A micrscopic examination will be performed if indicated. Normal [facility] Comment on above: Performed By: #### P RBC #### [facility] [address] [place] [address] Dr. Kayley Hatfield Glucose Ql (U) Negative Normal NEGATIVE [facility] Comment on above: Performed By: #### P RBC #### [facility] [address] [place] [address] Dr. Kayley Hatfield Hemoglobin Ql (U) Negative Normal NEGATIVE [facility] Comment on above: Performed By: #### P RBC #### [facility] [address] [place] [address] Dr. Kayley Hatfield Ketones Ql (U) Negative Normal NEGATIVE [facility] Comment on above: Performed By: #### P RBC #### [facility] [address] [place] [address] Dr. Kayley Hatfield LEUKOCYTES Negative Normal NEGATIVE [facility] Comment on above: Performed By: #### P RBC #### [facility] [address] [place] [address] Dr. Kayley Hatfield Nitrite Ql (U) Negative Normal NEGATIVE [facility] Comment on above: Performed By: #### P RBC #### [facility] [address] [place] [address] Dr. Kayley Hatfield pH (U) 6.0 [pH] Normal 5-9 [facility] Comment on above: Performed By: #### P RBC #### [facility] [address] [place] [address] Dr. Kayley Hatfield SPEC GRAVITY <=1.005 Abnormal 1.005-<=1.025 [facility] Comment on above: Performed By: #### P RBC #### [facility] [address] [place] [address] Dr. Kayley Hatfield UA PROTEIN Negative Normal NEGATIVE/ TRACE [facility] Comment on above: Performed By: #### P RBC #### [facility] [address] [place] [address] Dr. Kayley Hatfield UR MICRO IND NOT INDICATED Normal [facility] Comment on above: Performed By: #### P RBC #### [facility] [address] [address] [address] Kayley Hatfield Urobilinogen Qn (U) 0.2 {Lu'U}/dL Normal 0.2 - 1. 0 [facility] Comment on above: Performed By: #### P RBC #### [facility] [address] [address] [address] Kayley Hatfield FERRITINon 03-28-2022 Ferritin [Mass/Vol] 61.0 ng/mL Normal 8.0-252.0 [facility] Comment on above: Performed By: #### P RBC #### [facility] [address] [place] [address] Dr. Kayley Hatfield GLYCOHEMOGLOBIN A1Con 2021 ADA RECOMMENDATION SEE BELOW Normal [facility] Comment on above: Result Comment: ADA RECOMMENDED LIMIT 4.0 - 6.0 ADA THERAPEUTIC TARGET < 7.0 ACTION SUGGESTED > 7.0 Performed By: #### P RBC #### [facility] [address] [place] [address] Dr. Kayley Hatfield Glucose [Mass/Vol] 114 mg/dL Normal [facility] Comment on above: Performed By: #### P RBC #### [facility] [address] [place] [address] Dr. Kayley Hatfield HbA1c (Bld) [Mass fraction] 5.6 % Normal 4.5-6.2 [facility] Comment on above: Performed By: #### P RBC #### [facility] [address] [address] [address] Kayley Hatfield IRONon 03-28-2022 Iron [Mass/Vol] 37.0 ug/dL Critically low 50.0-170.0 [facility] Comment on above: Performed By: #### P RBC #### [facility] [address] [place] [address] Dr. Kayley Hatfield LDHon 03-28-2022 LDH 174 U/L Normal 81-234 [facility] Comment on above: Performed By: #### L DH #### [facility] [address] [address] [address] Kayley Hatfield LIPID PROFILEon 03-28-2022 CHOL-HDL RATIO NORM SEE BELOW Normal [facility] Comment on above: Result Comment: 3.3 - 4.4 LOW RISK 4.4 - 7.1 AVERAGE RISK 7.1 - 11.0 MODERATE RISK >11.0 HIGH RISK Performed By: #### P RBC #### [facility] [address] [address] [address] Kayley Hatfield Cholesterol [Mass/Vol] 193 mg/dL Normal <=200 [facility] Comment on above: Performed By: #### P RBC #### [facility] [address] [address] [address] Kayley Hatfield Cholesterol in HDL [Mass/Vol] 95 mg/dL Critically high 40-60 [facility] Comment on above: Performed By: #### P RBC #### [facility] [address] [address] [address] Kayley Hatfield Cholesterol in LDL [Mass/Vol] 74.8 mg/dL Normal [facility] Comment on above: Performed By: #### P RBC #### [facility] [address] [address] [address] Kayley Hatfield Cholesterol.total/Cho lesterol in HDL [Mass ratio] 2.0 {ratio} Normal [facility] Comment on above: Performed By: #### P RBC #### [facility] [address] [address] [address] Kayley Hatfield HDL NORMAL > or = 60 mg/dl - LO W CARDIOVASCULAR RISK <40 mg/dl - HIGH CARDIOVASCULAR RISK Normal [facility] Comment on above: Performed By: #### P RBC #### [facility] [address] [address] [address] Kayley Hatfield LDL CALC NORMAL SEE BELOW Normal [facility] Comment on above: Result Comment: <100 mg/dl OPTIMAL 100 - 129 mg/dl NEAR OR ABOVE OPTIMAL 130 - 159 mg/dl BORDERLINE HIGH 160 - 189 mg/dl HIGH >190 mg/dl VERY HIGH Performed By: #### P RBC #### [facility] [address] [address] [address] Kayley Hatfield Triglyceride [Mass/Vol] 116 mg/dL Normal <=150 [facility] Comment on above: Performed By: #### P RBC #### [facility] [address] [place] [address] Dr. Kayley Hatfield VLDL CALC 23.2 mg/dL Normal [facility] Comment on above: Performed By: #### P RBC #### [facility] [address] [place] [address] Dr. Kayley Hatfield LIVER PROFILEon 03-28-2022 Albumin [Mass/Vol] 3.2 g/dL Critically low 3.4-5.0 Th e [facility] Comment on above: Performed By: #### P RBC #### [facility] [address] [place] [address] Dr. Kayley Hatfield Albumin/Globulin [Mass ratio] 1.0 {ratio} Normal [facility] Comment on above: Performed By: #### P RBC #### [facility] [address] [place] [address] Dr. Kayley Hatfield ALP [Catalytic activity/Vol] 56 U/L Normal 46-116 [facility] Comment on above: Performed By: #### P RBC #### [facility] [address] [place] [address] Dr. Kayley Hatfield ALT [Catalytic activity/Vol] 32 U/L Normal 14-59 [facility] Comment on above: Performed By: #### P RBC #### [facility] [address] [place] [address] Dr. Kayley Hatfield AST [Catalytic activity/Vol] 18 U/L Normal 15-37 [facility] Comment on above: Performed By: #### P RBC #### [facility] [address] [place] [address] Dr. Kayley Hatfield BILI, CONJUGATED 0.1 mg/dL Normal 0.0-0.2 [facility] Comment on above: Performed By: #### P RBC #### [facility] [address] [place] [address] Dr. Kayley Hatfield Bilirubin [Mass/Vol] 0.2 mg/dL Normal 0.2-1.0 [facility] Comment on above: Performed By: #### P RBC #### [facility] [address] [place] [address] Dr. Kayley Hatfield Globulin (S) [Mass/Vol] 3.1 g/dL Normal [facility] Comment on above: Performed By: #### P RBC #### [facility] [address] [place] [address] Dr. Kayley Hatfield Protein [Mass/Vol] 6.3 g/dL Critically low 6.4-8.2 [facility] Comment on above: Performed By: #### P RBC #### [facility] [address] [place] [address] Dr. Kayley Hatfield MAGNESIUMon 03-28-2022 Magnesium [Mass/Vol] 1.8 mg/dL Normal 1.8-2.4 [facility] Comment on above: Performed By: #### H GBHCT #### [facility] [address] [place] [address] Dr. Kayley Hatfield PHOSPHORUSon 03-28-2022 Phosphate [Mass/Vol] 4.4 mg/dL Normal 2.6-4.7 [facility] Comment on above: Performed By: #### O BSCRN #### [facility] [address] [place] [address] Dr. Kayley Hatfield PROF CHEM 8 (BAS METB)on Anion gap [Moles/Vol] 10.1 mmol/L Normal [facility] Comment on above: Performed By: #### P RBC #### [facility] [address] [place] [address] Dr. Kayley Hatfield Calcium [Mass/Vol] 9.1 mg/dL Normal 8.5-10.1 [facility] Comment on above: Performed By: #### P RBC #### [facility] [address] [place] [address] Dr. Kayley Hatfield Chloride [Moles/Vol] 101 mmol/L Normal 98-107 [facility] Comment on above: Performed By: #### P RBC #### [facility] [address] [place] [address] Dr. Kayley Hatfield CO2 [Moles/Vol] 32.6 mmol/L Critically high 21.0-32.0 [facility] Comment on above: Performed By: #### P RBC #### [facility] [address] [address] [address] Kayley Hatfield Creatinine [Mass/Vol] 0.90 mg/dL Normal 0.55-1.02 [facility] Comment on above: Performed By: #### P RBC #### [facility] [address] [address] [address] Kayley Hatfield EGFR-AF WALLISIAN >60 Normal >=60 [facility] Comment on above: Performed By: #### P RBC #### [facility] [address] [address] [address] Kayley Hatfield EGFR-NON AF WALLISIAN >60 Normal >=60 [facility] Comment on above: Performed By: #### P RBC #### [facility] [address] [address] [address] Kayley Hatfield Glucose [Mass/Vol] 161 mg/dL Critically high 74-106 T [facility] Comment on above: Performed By: #### P RBC #### [facility] [address] [address] [address] Kayley Hatfield Potassium [Moles/Vol] 4.7 mmol/L Normal 3.5-5.1 [facility] Comment on above: Performed By: #### P RBC #### [facility] [address] [address] [address] Kayley Hatfield Sodium [Moles/Vol] 139 mmol/L Normal 136-145 [facility] Comment on above: Performed By: #### P RBC #### [facility] [address] [address] [address] Kayley Hatfield Urea nitrogen [Mass/Vol] 15.0 mg/dL Normal 7.0-18.0 [facility] Comment on above: Performed By: #### P RBC #### [facility] [address] [address] [address] Kayley Hatfield Urea nitrogen/Creatinine [Mass ratio] 16.7 mg/mg Normal [facility] [facility] Comment on above: Performed By: #### P RBC #### [facility] [address] [place] [address] Dr. Kayley Hatfield RETICULOCYTEon 03-28-2022 RETIC 4.65 % Critically high 0.60-3.10 [facility] Comment on above: Performed By: #### L DH #### [facility] [address] [place] [address] Dr. Kayley Hatfield SED RATE WESTERGRENon 2021 SED RATE 12 mm/hr Normal <=30 [facility] Comment on above: Performed By: #### P RTELEC #### [facility] [address] [place] [address] Dr. Kayley Hatfield TSHon 03-28-2022 TSH 0.922 uIU/mL Normal 0.358-3.[address] [facility] Comment on above: Performed By: #### P RBC #### [facility] [address] [place] [address] Dr. Kayley Hatfield TYPE AND SCREENon 03-28-2022 TYPE AND SCREEN Negative Normal [facility] Comment on above: Performed By: #### C VDTBH #### [facility] [address] [place] [address] Dr. Kayley Hatfield VIT B12 AND FOLATEon 022 Cobalamin (Vitamin B12) [Mass/Vol] 490.0 pg/mL Normal 193.0-986.0 [facility] Comment on above: Performed By: #### L DH #### [facility] [address] [place] [address] Dr. Kayley Hatfield FOLATE 14.00 ng/mL Normal 8.60-58.90 [facility] Comment on above: Performed By: #### L DH #### [facility] [address] [place] [address] Dr. Kayley Hatfield VITAMIN D 25 OHon 03-28-2022 VIT D 25-OH 41.5 ng/mL Normal [facility] Comment on above: Performed By: #### O BSCRN #### [facility] [address] [place], [place] [address] Dr. Kayley Hatfield VIT D RANGES SEE BELOW Normal [facility] Comment on above: Result Comment: <20 ng/mL Vit D deficient 20 - <30 ng/mL Vit D insufficient 30 - 100 ng/mL Vit D sufficient >100 ng/mL Potential Toxicity Performed By: #### O BSCRN #### [facility] [address] [place], [place] [address] Dr. Kayley Hatfield XR CHEST 1 Von [...] STEPHEN ARAIZA Date: 2022-03-28 21:37 Normal [facility] BASIC METABOLIC PANELon 09-0 Calcium [Mass/Vol] 8.9 mg/dL Normal 8.6-10.3 [facility] Comment on above: Order Comment: No: D o not add to previous draw Performed By: #### 3 5200, 23162, 28138, 76725 #### [facility] [address] [place] [address], [facility] Chloride [Moles/Vol] 97 mmol/L Low 98-107 [facility] Comment on above: Order Comment: No: D o not add to previous draw Performed By: #### 3 5200, 83296, 80760, 47864 #### [facility] [address] [place] [address], [facility] CO2 [Moles/Vol] 35 mmol/L High 21-31 [facility] Comment on above: Order Comment: No: D o not add to previous draw Performed By: #### 3 0, 39077, 85628, 88824 #### [facility] [address] [place] [address], [facility] Creatinine [Mass/Vol] 0.65 mg/dL Normal 0.60-1.20 [facility] Comment on above: Order Comment: No: D o not add to previous draw Performed By: #### 3 5200, 36189, 30346, 93307 #### [facility] [address] [place] [address], [facility] GFR/1.73 sq M.predicted among non-blacks MDRD (S/P/Bld) [Vol rate/Area] mL/min/{1.73_m2} Normal >60 [facility] Comment on above: Order Comment: No: D o not add to previous draw Result Comment: [facility]'s estimated glomerular filtration rate (eGFR) will [...] of individuals. Performed By: #### 3 5200, 99384, 69127, 06842 #### [facility] [address] [place] [address], [facility] Glucose [Mass/Vol] 161 mg/dL High 70-100 [facility] Comment on above: Order Comment: No: D o not add to previous draw Performed By: #### 3 5200, 49573, 21347, 96991 #### [facility] [address] [place] [address], [place] Potassium [Moles/Vol] 3.9 mmol/L Normal 3.5-5.1 [facility] Comment on above: Order Comment: No: D o not add to previous draw Performed By: #### 3 5200, 84060, 54230, 45382 #### [facility] [address] [place] [address], [place] Sodium [Moles/Vol] 136 mmol/L Normal 136-145 [facility] Comment on above: Order Comment: No: D o not add to previous draw Performed By: #### 3 5200, 90815, 56002, 74358 #### [facility] [address] [place] [address], [place] Urea nitrogen [Mass/Vol] 16 mg/dL Normal 7-25 [facility] Comment on above: Order Comment: No: D o not add to previous draw Performed By: #### 3 5200, 83994, 73308, 32635 #### [facility] [address] [place] [address], [place] CBC COMPLETE BLOOD COUNTon 0 03-15-2022 Hematocrit (Bld) [Volume fraction] 28.2 % Low 36.0-45.0 [facility] Comment on above: Order Comment: No: D o not add to previous draw Performed By: #### 3 5200 #### [facility] [address] [place] [address], [place] Hemoglobin (Bld) [Mass/Vol] 8.3 g/dL Low 12.0-15.0 [facility] Comment on above: Order Comment: No: D o not add to previous draw Performed By: #### 3 5200 #### [facility] [address] [place] [address], [place] MCH (RBC) [Entitic mass] 22.9 pg Low 27.0-33.0 [facility] Comment on above: Order Comment: No: D o not add to previous draw Performed By: #### 3 5200 #### [facility] [address] [facility]. [address] MCHC (RBC) [Mass/Vol] 29.4 g/dL Low 32.0-35.0 [facility] Comment on above: Order Comment: No: D o not add to previous draw Performed By: #### 3 5200 #### [facility] [address] MCV (RBC) [Entitic vol] 77.9 fL Low 82.0-98.0 [facility] Comment on above: Order Comment: No: D o not add to previous draw Performed By: #### 3 5200 #### [facility] [address] Nucleated RBC/100 WBC (Bld) [Ratio] 0 % Normal 0-0 [facility] Comment on above: Order Comment: No: D o not add to previous draw Performed By: #### 3 5200 #### [facility] [address] [facility] [place] [address], [facility] PLAT CNT 221 10*3/uL Normal 150-400 [facility] Comment on above: Order Comment: No: D o not add to previous draw Performed By: #### 3 5200 #### [facility] [address] RBC (Bld) [#/Vol] 3.62 10*6/uL Low 3.80-5.00 [facility] Comment on above: Order Comment: No: D o not add to previous draw Performed By: #### 3 5200 #### [facility] [address] RDW ---- Normal 11.5-15.0 [facility] Comment on above: Order Comment: No: D o not add to previous draw Result Comment: Prev ious RDW was unable to be calculated Performed By: #### 3 5200 #### [facility] [address] [place] [address], [place] WBC (Bld) [#/Vol] 11.88 10*3/uL High 4.00-10.60 [facility] Comment on above: Order Comment: No: D o not add to previous draw Performed By: #### 3 5200 #### [facility] [address] [place] [address], [place] POC GLUCOSE LABon 03-15-2022 Glucose [Mass/Vol] 109 mg/dL High 70-100 [facility] Comment on above: Performed By: #### 8 5499 ####[facility] [place] [address], [place] POC GLUCOSE LABon 03-14-2022 Glucose [Mass/Vol] 278 mg/dL High 70-100 [facility] Comment on above: Performed By: #### 8 5499 ####[facility] [place] [address], [place] Glucose [Mass/Vol] 195 mg/dL High 70-100 [facility] Comment on above: Performed By: #### 8 5499 ####[facility] [place] [address], [place] Glucose [Mass/Vol] 114 mg/dL High 70-100 [facility] Comment on above: Performed By: #### 8 5499 ####[facility] [place] [address], [place] Glucose [Mass/Vol] 113 mg/dL High 70-100 [facility] Comment on above: Performed By: #### 3 5200 #### [facility] [address] [place] [address], [place] PORTABLE CHEST 1 VIEWon 09-0 PORTABLE CHEST 1 VIEW [facility] Department of Radiology [address] [place] [address] Patient Name: LISE CANALES : 1955 Sex: F Age: Race: White Pt. Location: [id number] Patient Status: I Ordered Date: 03/14/2022 2:35:00 [...] chest. Electronically signed: Tyshawn Tapia. Transcribed by: [email or web address], User Resident: Electronically Signed by: TYSHAWN TAPIA @ 03/14/2022 03:31 PM Normal [facility] Comment on above: Order Comment: Check Chest Tube Position, S/P Chest tube DC'd PORTABLE CHEST 1 VIEW [facility] Department of Radiology [address] [place] [address] Patient Name: LISE CANALES : 1955 Sex: F Age: Race: White Pt. Location: [id number] Patient Status: I Ordered Date: 03/14/2022 6:50:00 [...] pneumothorax. Electronically signed: Tyshawn Tapia. Transcribed by: [email or web address], User Resident: Electronically Signed by: TYSHAWN TAPIA @ 03/14/2022 02:56 PM Normal [facility] Comment on above: Order Comment: Check Chest Tube Position, S/P Chest tube DC'd POC GLUCOSE LABon 03-13-2022 Glucose [Mass/Vol] 282 mg/dL High 70-100 [facility] Comment on above: Performed By: #### 8 5499 ####[facility] [place] [address], [facility] Glucose [Mass/Vol] 163 mg/dL High 70-100 [facility] Comment on above: Performed By: #### 8 5499 ####[facility] [place] [address], [facility] Glucose [Mass/Vol] 149 mg/dL High 70-100 [facility] Comment on above: Performed By: #### 3 5200 #### [facility] [address] [place] [address], [facility] Glucose [Mass/Vol] 149 mg/dL High 70-[address] [facility] Comment on above: Performed By: #### 8 5499 ####[facility] [place] [address], [facility] PORTABLE CHEST 1 VIEWon PORTABLE CHEST 1 VIEW [facility] Department of Radiology [address] [place] [id number] Patient Name: LISE CANALES : 1955 Sex: F Age: Race: White Pt. Location: [id number] Patient Status: I Ordered Date: 03/13/2022 4:15:00 [...] morning Electronically signed: Avinash Mckay. Transcribed by: [email or web address], User Resident: Electronically Signed by: AVINASH MCKAY @ 03/13/2022 06:20 PM Normal [facility] Comment on above: Order Comment: Check Chest Tube Position, S/P Chest tube DC'd PORTABLE CHEST 1 VIEW [facility] Department of Radiology [address] [place] [id number] Patient Name: LISE CANALES : 1955 Sex: F Age: Race: White Pt. Location: [address] [place] [address] Patient Status: I Ordered Date: 03/13/2022 6:50:00 [...] congestion. Electronically signed: Tyshawn Tapia. Transcribed by: [email or web address], User Resident: Electronically Signed by: TYSHAWN TAPIA @ 03/13/2022 08:34 AM Normal [facility] Comment on above: Order Comment: Evalu ate for Aspiration POTASSIUM BLOODon 03-13-2022 Potassium [Moles/Vol] 4.5 mmol/L Normal 3.5-5.1 [facility] Comment on above: Order Comment: No: D o not add to previous draw Performed By: #### 3 5200 #### [facility] [address] [place] [address], [facility] BASIC METABOLIC PANELon Calcium [Mass/Vol] 9.4 mg/dL Normal 8.6-10.3 [facility] Comment on above: Order Comment: Check Chest Tube Position, S/P Chest tube DC'd Performed By: #### 0 0071 ####[facility] [place] [address], [facility] Chloride [Moles/Vol] 98 mmol/L Normal 98-107 [facility] Comment on above: Order Comment: Check Chest Tube Position, S/P Chest tube DC'd Performed By: #### 0 0071 ####[facility] [facility] [place] [address], [facility] CO2 [Moles/Vol] 34 mmol/L High 21-31 [facility] Comment on above: Order Comment: Check Chest Tube Position, S/P Chest tube DC'd Performed By: #### 0 0071 ####[facility] [facility] [place] [address], [facility] Creatinine [Mass/Vol] 0.56 mg/dL Low 0.60-1.20 [facility] Comment on above: Order Comment: Check Chest Tube Position, S/P Chest tube DC'd Performed By: #### 0 0071 ####[place] [id number] [address] GFR/1.73 sq M.predicted among non-blacks MDRD (S/P/Bld) [Vol rate/Area] mL/min/{1.73_m2} Normal >60 [facility] Comment on above: Order Comment: Check Chest Tube Position, S/P Chest tube DC'd Result Comment: [facility]'s estimated glomerular filtration rate (eGFR) will [...] of individuals. Performed By: #### 0 0071 ####[facility] [facility] [place] [address], [facility] Glucose [Mass/Vol] 114 mg/dL High 70-100 [facility] Comment on above: Order Comment: Check Chest Tube Position, S/P Chest tube DC'd Performed By: #### 0 0071 ####[facility] [place] [address], [facility] Potassium [Moles/Vol] 3.3 mmol/L Low 3.5-5.1 [facility] Comment on above: Order Comment: Check Chest Tube Position, S/P Chest tube DC'd Performed By: #### 0 0071 ####[facility] [place] [address], [facility] Sodium [Moles/Vol] 140 mmol/L Normal 136-145 [facility] Comment on above: Order Comment: Check Chest Tube Position, S/P Chest tube DC'd Performed By: #### 0 0071 ####[facility] Urea nitrogen [Mass/Vol] 9 mg/dL Normal 7-25 [facility] Comment on above: Order Comment: Check Chest Tube Position, S/P Chest tube DC'd Performed By: #### 0 0071 ####[facility] CBC COMPLETE BLOOD COUNTon 0 - Hematocrit (Bld) [Volume fraction] 35.2 % Low 36.0-45.0 [facility] Comment on above: Order Comment: No: D o not add to previous draw Performed By: #### 3 5200 #### [facility] [address] [place] [address], [facility] Hemoglobin (Bld) [Mass/Vol] 10.1 g/dL Low 12.0-15.0 [facility] Comment on above: Order Comment: No: D o not add to previous draw Performed By: #### 3 5200 #### [facility] [address] [place] [address], [facility] IMM PLATELET FRAC 3.6 % Normal 0.8-6.3 [facility] Comment on above: Order Comment: No: D o not add to previous draw Performed By: #### 3 5200 #### [facility] [address] [place] [address], [facility] MCH (RBC) [Entitic mass] 21.9 pg Low 27.0-33.0 [facility] Comment on above: Order Comment: No: D o not add to previous draw Performed By: #### 3 5200 #### [facility] [address] [place] [address], [facility] MCHC (RBC) [Mass/Vol] 28.7 g/dL Low 32.0-35.0 [facility] Comment on above: Order Comment: No: D o not add to previous draw Performed By: #### 3 5200 #### [facility] [address] [place] [address], [facility] MCV (RBC) [Entitic vol] 76.2 fL Low 82.0-98.0 [facility] Comment on above: Order Comment: No: D o not add to previous draw Performed By: #### 3 5200 #### [facility] [address] [facility]. [address] Nucleated RBC/100 WBC (Bld) [Ratio] 0 % Normal 0-0 [facility] Comment on above: Order Comment: No: D o not add to previous draw Performed By: #### 3 5200 #### [facility] [address] [facility] [place] [address], [facility] PLAT CNT 129 10*3/uL Low 150-400 [facility] Comment on above: Order Comment: No: D o not add to previous draw Performed By: #### 3 5200 #### [facility] [address] [facility] [place] [address], [facility] RBC (Bld) [#/Vol] 4.62 10*6/uL Normal 3.80-5.00 [facility] Comment on above: Order Comment: No: D o not add to previous draw Performed By: #### 3 5200 #### [facility] [address] [place] [address], [facility] RDW Unable to Calculate Normal 11.5-15.0 [facility] Comment on above: Order Comment: No: D o not add to previous draw Performed By: #### 3 5200 #### [facility] [address] [place] [address], [facility] WBC (Bld) [#/Vol] 11.72 10*3/uL High 4.00-10.60 [facility] Comment on above: Order Comment: No: D o not add to previous draw Performed By: #### 3 5200 #### [facility] [address] [facility] [place] [address], [facility] POC GLUCOSE LABon 03-12-2022 Glucose [Mass/Vol] 252 mg/dL High 70-100 [facility] Comment on above: Performed By: #### 3 5200 #### [facility] [address] [facility] [place] [address], [facility] POC GLUCOSE LABon 03-11-2022 Glucose [Mass/Vol] 121 mg/dL High 70-100 [facility] Comment on above: Performed By: #### 8 5499 ####[facility] [facility] [place] [address], [facility] Glucose [Mass/Vol] 122 mg/dL High 70-100 [facility] Comment on above: Performed By: #### 3 5200 #### [facility] [address] [facility] [place] [address], [facility] Glucose [Mass/Vol] 86 mg/dL Normal 70-100 [facility] Comment on above: Performed By: #### 3 5200 #### [facility] [address] [place] [address], [facility] PORTABLE CHEST 1 VIEWon 09-0 PORTABLE CHEST 1 VIEW [facility] Department of Radiology [address] [place] [address] Patient Name: LISE CANALES : 1955 Sex: F Age: Race: White Pt. Location: [id number] Patient Status: I Ordered Date: 03/11/2022 3:25:00 [...] abnormalities Electronically signed: Avinash Mckay. Transcribed by: [email or web address], User Resident: Electronically Signed by: AVINASH MCKAY @ 03/11/2022 06:30 PM Normal [facility] Comment on above: Order Comment: Evalu ate for Atelectasis CBC COMPLETE BLOOD COUNTon 0 03-10-2022 Erythrocyte distribution width (RBC) [Ratio] 29.9 % High 11.5-15.0 [facility] Comment on above: Order Comment: No: D o not add to previous draw Performed By: #### 3 5200 #### [facility] [address] [place] [address], [facility] Hematocrit (Bld) [Volume fraction] 32.2 % Low 36.0-45.0 [facility] Comment on above: Order Comment: No: D o not add to previous draw Performed By: #### 3 5200 #### [facility] [address] [place] [address], [facility] Hemoglobin (Bld) [Mass/Vol] 9.2 g/dL Low 12.0-15.0 [facility] Comment on above: Order Comment: No: D o not add to previous draw Performed By: #### 3 5200 #### [facility] [address] [facility] [place] [address], [facility] IMM PLATELET FRAC 3.4 % Normal 0.8-6.3 [facility] Comment on above: Order Comment: No: D o not add to previous draw Performed By: #### 3 5200 #### [facility] [address] [facility] [place] [address], [facility] MCH (RBC) [Entitic mass] 21.9 pg Low 27.0-33.0 [facility] Comment on above: Order Comment: No: D o not add to previous draw Performed By: #### 3 5200 #### [facility] [address] [facility] [place] [id number], [facility] MCHC (RBC) [Mass/Vol] 28.6 g/dL Low 32.0-35.0 [facility] Comment on above: Order Comment: No: D o not add to previous draw Performed By: #### 3 5200 #### [facility] [address] [place] [address], [facility] MCV (RBC) [Entitic vol] 76.7 fL Low 82.0-98.0 [facility] Comment on above: Order Comment: No: D o not add to previous draw Performed By: #### 3 5200 #### [facility] [address] [place] [address], [facility] Nucleated RBC/100 WBC (Bld) [Ratio] 0 % Normal 0-0 [facility] Comment on above: Order Comment: No: D o not add to previous draw Performed By: #### 3 5200 #### [facility] [address] [place] [address], [facility] PLAT CNT 124 10*3/uL Low 150-400 [facility] Comment on above: Order Comment: No: D o not add to previous draw Performed By: #### 3 5200 #### [facility] [address] [place] [address], [facility] RBC (Bld) [#/Vol] 4.20 10*6/uL Normal 3.80-5.00 [facility] Comment on above: Order Comment: No: D o not add to previous draw Performed By: #### 3 5200 #### [facility] [address] [place] [address], [facility] WBC (Bld) [#/Vol] 12.68 10*3/uL High 4.00-10.60 [facility] Comment on above: Order Comment: No: D o not add to previous draw Performed By: #### 3 5200 #### [facility] [address] [place] [address], [facility] HEMOGLOBIN A1Con 03-10-2022 Glucose [Moles/Vol] 143 mmol/L Normal [facility] Comment on above: Order Comment: No: D o not add to previous draw Result Comment: Resu lt changed by BSHORT on 03/10/2022 13:15. The previous value was 140. Performed By: #### 3 1791 #### [facility] [address] [place] [address], [facility] HbA1c (Bld) [Mass fraction] 6.6 % High 4.0-6.0 [facility] Comment on above: Order Comment: No: D o not add to previous draw Result Comment: Resu lt changed by BSHORT on 03/10/2022 13:15. The previous value was 6.5. Performed By: #### 3 1791 #### [facility] [address] [facility] [place] [address], [facility] POC GLUCOSE LABon 03-10-2022 Glucose [Mass/Vol] 107 mg/dL High 70-100 [facility] Comment on above: Performed By: #### 3 5200 #### [facility] [address] [place] [address], [facility] Glucose [Mass/Vol] 100 mg/dL Normal 70-100 [facility] Comment on above: Performed By: #### 8 5499 ####[facility] [place] [address], [facility] Glucose [Mass/Vol] 147 mg/dL High 70-100 [facility] Comment on above: Performed By: #### 8 5499 ####[facility] [place] [address], [facility] Glucose [Mass/Vol] 65 mg/dL Low 70-100 [facility] Comment on above: Performed By: #### 8 5499 ####[facility] [place] [address], [facility] PORTABLE CHEST 1 VIEWon PORTABLE CHEST 1 VIEW [facility] Department of Radiology [address] [place] [address] Patient Name: LISE CANALES : 1955 Sex: F Age: Race: White Pt. Location: [id number] Patient Status: I Ordered Date: 03/10/2022 7:40:00 [...] recommended. Electronically signed: Derek Ingram. Transcribed by: [email or web address], User Resident: Electronically Signed by: DEREK INGRAM @ 03/10/2022 12:10 PM Normal [facility] Comment on above: Order Comment: No: D o not add to previous draw *URINE CULTUREon 03-09-2022 *URINE CULTURE Clinical Report: (D) Specimen/Source: URINE/CLEAN VOID URINE Collected: 03/09/2022 01:58 Status: Final Last Updated: 03/10/2022 08:51 ISO (Final) 50,000 - 100,000 Cfu/mL Mixed Lexi: Multiple Organisms present suggest contamination. Suggest Repeat Specimen Normal [facility] Comment on above: Performed By: #### 3 0339 ####[facility] CBC W/DIFFon 03-09-2022 ABS IMM GRANS 0.1 10*3/uL Normal 0.0-0.2 [facility] Comment on above: Order Comment: Check Chest Tube Position, S/P Chest tube DC'd Performed By: #### 5 0103 ####[facility] ABS NEUTROPHILS 13.3 10*3/uL High 1.6-7.6 [facility] Comment on above: Order Comment: Check Chest Tube Position, S/P Chest tube DC'd Performed By: #### 5 0103 ####[facility] ANISO Moderate Normal [facility] Comment on above: Order Comment: Check Chest Tube Position, S/P Chest tube DC'd Performed By: #### 5 0103 ####[facility] Basophils (Bld) [#/Vol] 0.0 10*3/uL Normal 0.0-0.2 [facility] Comment on above: Order Comment: Check Chest Tube Position, S/P Chest tube DC'd Performed By: #### 5 0103 ####[facility] Basophils/100 WBC (Bld) 0.3 % Normal 0.0-1.0 [facility] Comment on above: Order Comment: Check Chest Tube Position, S/P Chest tube DC'd Performed By: #### 5 0103 ####[facility] Eosinophils (Bld) [#/Vol] 0.1 10*3/uL Normal 0.0-0.5 [facility] Comment on above: Order Comment: Check Chest Tube Position, S/P Chest tube DC'd Performed By: #### 5 3 ####[facility] Eosinophils/100 WBC (Bld) 0.5 % Normal 0.0-6.0 [facility] Comment on above: Order Comment: Check Chest Tube Position, S/P Chest tube DC'd Performed By: #### 5 3 ####[facility] Erythrocyte distribution width (RBC) [Ratio] 28.7 % High 11.5-15.0 [facility] Comment on above: Order Comment: Check Chest Tube Position, S/P Chest tube DC'd Performed By: #### 102 ####[facility] Hematocrit (Bld) [Volume fraction] 29.1 % Low 36.0-45.0 [facility] Comment on above: Order Comment: Check Chest Tube Position, S/P Chest tube DC'd Performed By: #### 5 3 ####[facility] Hemoglobin (Bld) [Mass/Vol] 8.3 g/dL Low 12.0-15.0 [facility] Comment on above: Order Comment: Check Chest Tube Position, S/P Chest tube DC'd Performed By: #### 5 3 ####[facility] HYPO Slight Normal [facility] Comment on above: Order Comment: Check Chest Tube Position, S/P Chest tube DC'd Performed By: #### 5 0103 ####[facility] IMMATURE GRANS 0.5 % Normal 0.0-1.0 [facility] Comment on above: Order Comment: Check Chest Tube Position, S/P Chest tube DC'd Performed By: #### 5 0103 ####[facility] [place] [address] Lymphocytes (Bld) [#/Vol] 0.8 10*3/uL Low 1.2-4.0 [facility] Comment on above: Order Comment: Check Chest Tube Position, S/P Chest tube DC'd Performed By: #### 5 0103 ####[facility] Lymphocytes/100 WBC (Bld) 5.5 % Low 20.0-45.0 [facility] Comment on above: Order Comment: Check Chest Tube Position, S/P Chest tube DC'd Performed By: #### 5 3 ####[address] MCH (RBC) [Entitic mass] 21.7 pg Low 27.0-33.0 [facility] Comment on above: Order Comment: Check Chest Tube Position, S/P Chest tube DC'd Performed By: #### 5 0103 ####[facility] MCHC (RBC) [Mass/Vol] 28.5 g/dL Low 32.0-35.0 [facility] Comment on above: Order Comment: Check Chest Tube Position, S/P Chest tube DC'd Performed By: #### 5 3 ####[facility] [facility] [place] [address], [facility] MCV (RBC) [Entitic vol] 76.2 fL Low 82.0-98.0 [facility] Comment on above: Order Comment: Check Chest Tube Position, S/P Chest tube DC'd Performed By: #### 5 3 ####[facility]3000 [facility] [place] [address], [facility] Monocytes (Bld) [#/Vol] 1.1 10*3/uL High 0.1-1.0 [facility] Comment on above: Order Comment: Check Chest Tube Position, S/P Chest tube DC'd Performed By: #### 5 3 ####[facility] [place] [address], [facility] MONOS 7.3 % Normal 5.0-12.0 [facility] Comment on above: Order Comment: Check Chest Tube Position, S/P Chest tube DC'd Performed By: #### 5 3 ####[facility] [facility] [place] [address], [facility] Neutrophils/100 WBC (Bld) 85.9 % High 40.0-72.0 [facility] Comment on above: Order Comment: Check Chest Tube Position, S/P Chest tube DC'd Performed By: #### 5 3 ####[facility] [facility] [place] [address], [facility] Nucleated RBC/100 WBC (Bld) [Ratio] 0 % Normal 0-0 [facility] Comment on above: Order Comment: Check Chest Tube Position, S/P Chest tube DC'd Performed By: #### 5 3 ####[facility] [place] [address], [facility] PLAT CNT 149 10*3/uL Low 150-400 [facility] Comment on above: Order Comment: Check Chest Tube Position, S/P Chest tube DC'd Performed By: #### 5 3 ####[facility] [place] [address], [facility] POIK Slight Normal [facility] Comment on above: Order Comment: Check Chest Tube Position, S/P Chest tube DC'd Performed By: #### 5 0103 ####[facility] [place] [address], [facility] POLY Slight Normal [facility] Comment on above: Order Comment: Check Chest Tube Position, S/P Chest tube DC'd Performed By: #### 5 0103 ####[facility] [facility] [place] [address], [facility] RBC (Bld) [#/Vol] 3.82 10*6/uL Normal 3.80-5.00 [facility] Comment on above: Order Comment: Check Chest Tube Position, S/P Chest tube DC'd Performed By: #### 5 0103 ####[facility] [place] [address], [facility] WBC (Bld) [#/Vol] 15.41 10*3/uL High 4.00-10.60 [facility] Comment on above: Order Comment: Check Chest Tube Position, S/P Chest tube DC'd Performed By: #### 5 0103 ####[facility]3000 [facility] COMP METABOLIC PANELon 03-09 Albumin [Mass/Vol] 3.8 g/dL Normal 3.5-5.7 [facility] Comment on above: Order Comment: No: D o not add to previous draw Performed By: #### 3 5200, 74565, 75874, 53494 #### [facility] [address] [place] [address], [facility] ALKALINE PHOSPH 52 IU/L Normal 34-104 [facility] Comment on above: Order Comment: No: D o not add to previous draw Performed By: #### 3 5200, 39823, 32029, 94588 #### [facility] [address] [place] [address], [place] ALT [Catalytic activity/Vol] 13 U/L Normal 7-52 [facility] Comment on above: Order Comment: No: D o not add to previous draw Performed By: #### 3 5200, 78371, 27655, 76522 #### [facility] [address] [place] [address], [place] AST [Catalytic activity/Vol] 14 U/L Normal 13-39 [facility] Comment on above: Order Comment: No: D o not add to previous draw Performed By: #### 3 5200, 48594, 09586, 57162 #### [facility] [address] [place] [address], [place] Bilirubin [Mass/Vol] 0.4 mg/dL Normal 0.3-1.0 [facility] Comment on above: Order Comment: No: D o not add to previous draw Performed By: #### 3 5200, 46755, 73211, 81162 #### [facility] [address] [place] [address], [place] Calcium [Mass/Vol] 9.2 mg/dL Normal 8.6-10.3 [facility] Comment on above: Order Comment: No: D o not add to previous draw Performed By: #### 3 5200, 01948, 94856, 87624 #### [facility] [address] [place] [address], [place] Chloride [Moles/Vol] 99 mmol/L Normal 98-107 [facility] Comment on above: Order Comment: No: D o not add to previous draw Performed By: #### 3 5200, 92684, 16141, 27715 #### [facility] [address] [place] [address], [place] CO2 [Moles/Vol] 33 mmol/L High 21-31 [facility] Comment on above: Order Comment: No: D o not add to previous draw Performed By: #### 3 5200, 60702, 40089, 53718 #### [facility] [address] [place] [address], [facility] Creatinine [Mass/Vol] 0.79 mg/dL Normal 0.55-1.02 [facility] Comment on above: Order Comment: No: D o not add to previous draw Performed By: #### 3 5200, 41255, 62521, 74167 #### [facility] [address] [place] [address], [facility] Performed By: #### B LDCX1 #### [facility] [address] [place] [address] Dr. Kayley Hatfield GFR/1.73 sq M.predicted among non-blacks MDRD (S/P/Bld) [Vol rate/Area] mL/min/{1.73_m2} Normal >60 [facility] Comment on above: Order Comment: No: D o not add to previous draw Result Comment: [facility]'s estimated glomerular filtration rate (eGFR) will [...] of individuals. Performed By: #### 3 5200, 09902, 66443, 13842 #### [facility] [address] [place] [address], [facility] Glucose [Mass/Vol] 125 mg/dL High 70-100 [facility] Comment on above: Order Comment: No: D o not add to previous draw Performed By: #### 3 5200, 87807, 26103, 97790 #### [facility] [address] [place] [address], [facility] Potassium [Moles/Vol] 4.7 mmol/L Normal 3.5-5.1 [facility] Comment on above: Order Comment: No: D o not add to previous draw Performed By: #### 3 5200, 25361, 50382, 01363 #### [facility] [address] [place] [address], [place] Protein [Mass/Vol] 5.9 g/dL Low 6.0-8.3 [facility] Comment on above: Order Comment: No: D o not add to previous draw Performed By: #### 3 5200, 62451, 43203, 77333 #### [facility] [address] [place] [address], [facility] Sodium [Moles/Vol] 136 mmol/L Normal 136-145 [facility] Comment on above: Order Comment: No: D o not add to previous draw Performed By: #### 3 5200, 40252, 43762, 85208 #### [facility] [address] [place] [address], [facility] Urea nitrogen [Mass/Vol] 12 mg/dL Normal 7-25 [facility] Comment on above: Order Comment: No: D o not add to previous draw Performed By: #### 3 5200, 97479, 01830, 97379 #### [facility] [address] [place] [address], [place] LIPID PROFILEon 03-09-2022 Cholesterol [Mass/Vol] 160 mg/dL Normal 120-200 [facility] Comment on above: Order Comment: No: D o not add to previous draw Result Comment: CHOL ESTEROL REFERENCE RANGE: 20 YEARS AND OLDER CARDIOVASCULAR RISK Less than 200 mg/dl Low Risk 200 to 239 mg/dl Borderline Risk 240 mg/dl and greater High Risk Performed By: #### 3 5200, 80137, 36873, 71042 #### [facility] [address] [place] [address], [place] Cholesterol in HDL [Mass/Vol] 76 mg/dL Normal 23-92 [facility] Comment on above: Order Comment: No: D o not add to previous draw Result Comment: Slig ht variation in normal range could be due to gender and/or age. HDL CHOLESTEROL REFERENCE RANGE: 20 years and older Cardiovascular Risk > or =60 mg/dL Desirable 40 TO 59 mg/dL Low Risk <40 mg/dL High Risk Performed By: #### 3 5200, 55498, 20614, 49970 #### [facility] [address] [place] [address], [place] Cholesterol in LDL [Mass/Vol] 48 mg/dL Normal 0-130 [facility] Comment on above: Order Comment: No: D o not add to previous draw Result Comment: LDL IS A CALCULATION LDL IS ONLY VALID IF THE TRIG IS LESS THAN 400. Performed By: #### 3 5200, 12204, 77544, 02904 #### [facility] [address] [place] [address], [place] Cholesterol.total/Cho lesterol in HDL [Mass ratio] 2.1 {ratio} Normal .0-4.5 [facility] Comment on above: Order Comment: No: D o not add to previous draw Performed By: #### 3 5200, 78009, 38894, 79059 #### [facility] [address] [place] [address], [place] NON-HDL CHOLESTEROL 84 mg/dL Normal [facility] Comment on above: Order Comment: No: D o not add to previous draw Performed By: #### 3 5200, 49468, 52638, 51483 #### [facility] [address] [place] [address], [place] Triglyceride [Mass/Vol] 179 mg/dL High 40-149 [facility] Comment on above: Order Comment: No: D o not add to previous draw Result Comment: TRIG LYCERIDE REFERENCE RANGE: 20 YEARS AND OLDER CARDIOVASCULAR RISK LESS THAN 150 mg/dl LOW RISK 150 TO 199 mg/dl BORDERLINE RISK 200 mg/dl AND GREATER HIGH RISK Performed By: #### 3 5200, 43774, 25435, 08376 #### [facility] [address] VLDL CHOL 36 mg/dL Normal 0-40 [facility] Comment on above: Order Comment: No: D o not add to previous draw Performed By: #### 3 5200, 03469, 37423, 08412 #### [facility] [address] POC GLUCOSE LABon 03-09-2022 Glucose [Mass/Vol] 105 mg/dL High 70-100 [facility] Comment on above: Performed By: #### 8 5499 ####[facility]3000 [facility].[address] POC SARS COV2 ANTIGEN NEGATI VEon 03-09-2022 POC SARS COV2 ANTIGEN NEG Negative Normal NEGATIVE [facility] Comment on above: Result Comment: Nega [...] antigen from SARS-CoV-2 in direct nasopharyngeal swab (TOGGLE [employer]ESS OPERATOR) specimens from individuals who are suspected of [...] of Accreditation. Performed By: #### 3 2044 ####[facility] [place], [place] [id number] [place] [address] PORTABLE CHEST 1 VIEWon PORTABLE CHEST 1 VIEW [facility] Department of Radiology [address] [place] [address] Patient Name: LISE CANLAES : 1955 Sex: F Age: Race: White Pt. Location: [id number] Patient Status: I Ordered Date: 03/09/2022 8:55:00 [...] COPD. Electronically signed: Derek Ingram. Transcribed by: [email or web address], User Resident: Electronically Signed by: DEREK INGRAM @ 03/09/2022 02:48 PM Normal [facility] Comment on above: Order Comment: Check Chest Tube Position, S/P Chest tube DC'd TROPONIN-Ion 03-09-2022 Troponin I.cardiac [Mass/Vol] 0.00 ng/mL Normal 0.00-0.04 [facility] Comment on above: Order Comment: No: D o not add to previous draw Result Comment: REFE RENCE RANGES: 0.00 - 0.04 ng/ml NORMAL 0.05 - 0.50 ng/ml INDETERMINATE > 0.50 ng/ml CONSISTENT WITH AN M.I. Performed By: #### 3 5200, 10495, 85049, 07117 #### [facility] [address] [place] [address], [place] Troponin I.cardiac [Mass/Vol] 0.01 ng/mL Normal 0.00-0.04 [facility] Comment on above: Order Comment: No: D o not add to previous draw Result Comment: REFE RENCE RANGES: 0.00 - 0.04 ng/ml NORMAL 0.05 - 0.50 ng/ml INDETERMINATE > 0.50 ng/ml CONSISTENT WITH AN M.I. Performed By: #### 3 5200 #### [facility] [address] [place] [address], [place] Troponin I.cardiac [Mass/Vol] 0.00 ng/mL Normal 0.00-0.04 [facility] Comment on above: Order Comment: No: D o not add to previous draw Result Comment: REFE RENCE RANGES: 0.00 - 0.04 ng/ml NORMAL 0.05 - 0.50 ng/ml INDETERMINATE > 0.50 ng/ml CONSISTENT WITH AN M.I. Performed By: #### 3 5200, 56058, 27529, 39966 #### [facility] [address] [facility] [address] TSH3 WITH REFLEX FT4on 03-09 TSH 3RD GENERATION 0.60 uIU/mL Normal 0.34-5.60 [facility] Comment on above: Order Comment: No: D o not add to previous draw Performed By: #### 3 5200, 88754, 50050, 38656 #### [facility] [address] URINALYSIS REFLEXon 03-09-20 Appearance (U) CLEAR Normal CLEAR [facility] Comment on above: Order Comment: Check Chest Tube Position, S/P Chest tube DC'd Performed By: #### 3 0965 ####[facility] [place] [address], [facility] Bilirubin Ql (U) Negative Normal NEGATIVE [facility] Comment on above: Order Comment: Check Chest Tube Position, S/P Chest tube DC'd Performed By: #### 3 0965 ####[facility] [place] [address], [facility] Color (U) STRAW Abnormal YELLOW [facility] Comment on above: Order Comment: Check Chest Tube Position, S/P Chest tube DC'd Performed By: #### 3 0965 ####[facility] [place] [address], [facility] EPIS OCC Normal FEW,OCC,NONE SEEN [facility] Comment on above: Order Comment: Check Chest Tube Position, S/P Chest tube DC'd Performed By: #### 3 0965 ####[facility] [place] [address], [facility] Glucose Ql (U) Negative Normal NEGATIVE [facility] Comment on above: Order Comment: Check Chest Tube Position, S/P Chest tube DC'd Performed By: #### 3 0965 ####[facility]3000 [facility].[address] Hemoglobin Ql (U) MODERATE Abnormal NEGATIVE [facility] Comment on above: Order Comment: Check Chest Tube Position, S/P Chest tube DC'd Performed By: #### 3 0965 ####[facility] KETONE Negative Normal NEGATIVE [facility] Comment on above: Order Comment: Check Chest Tube Position, S/P Chest tube DC'd Performed By: #### 3 0965 ####[facility] LEUK SHARMIN SMALL Abnormal NEGATIVE [facility] Comment on above: Order Comment: Check Chest Tube Position, S/P Chest tube DC'd Performed By: #### 3 0965 ####[facility] MUCUS THREADS OCC Abnormal NONE SEEN [facility] Comment on above: Order Comment: Check Chest Tube Position, S/P Chest tube DC'd Performed By: #### 3 0965 ####[facility] Nitrite Ql (U) Negative Normal NEGATIVE [facility] Comment on above: Order Comment: Check Chest Tube Position, S/P Chest tube DC'd Performed By: #### 3 0965 ####[facility] pH (U) 6.0 [pH] Normal 5.0-8.0 [facility] Comment on above: Order Comment: Check Chest Tube Position, S/P Chest tube DC'd Performed By: #### 3 0965 ####[facility] Protein Ql (U) Negative Normal NEGATIVE [facility] Comment on above: Order Comment: Check Chest Tube Position, S/P Chest tube DC'd Performed By: #### 3 0965 ####[facility] [place] [address], [facility] RBC 6-10 Abnormal NONE SEEN [facility] Comment on above: Order Comment: Check Chest Tube Position, S/P Chest tube DC'd Performed By: #### 3 0965 ####[facility] SPEC GRAV 1.015 Normal 1.015-1.020 [facility] Comment on above: Order Comment: Check Chest Tube Position, S/P Chest tube DC'd Performed By: #### 3 0965 ####[facility]3000 [facility].[address] WBC UA 11-20 Abnormal NONE SEEN [facility] Comment on above: Order Comment: Check Chest Tube Position, S/P Chest tube DC'd Performed By: #### 3 0965 ####[facility] CBC W MANUAL DIFFon 03-08-20 22 ATYPICAL LYMPH # Normal [facility] Comment on above: Performed By: #### C VDTBH #### [facility] [address] [address] [address] Kayley Hatfield ATYPICAL LYMPH % Normal [facility] Comment on above: Performed By: #### C VDTBH #### [facility] [address] [address] [address] Kayley Hatfield BAND # Normal 0.0-0.3 [facility] Comment on above: Performed By: #### C VDTBH #### [facility] [address] [address] [address] Kayley Hatfield BAND % Normal 0-5 [facility] Comment on above: Performed By: #### C VDTBH #### [facility] [address] [address] [address] Kayley Hatfield BASOM # 0.00 103/ul Normal 0.00-0.10 [facility] Comment on above: Performed By: #### C VDTBH #### [facility] [address] [place] [address] Dr. Kayley Hatfield BASOM % 0.0 % Critically low 0.2-2.0 [facility] Comment on above: Performed By: #### C VDTBH #### [facility] [address] [place] [address] Dr. Kayley Hatfield BLAST # Normal [facility] Comment on above: Performed By: #### C VDTBH #### [facility] [address] [place] [address] Dr. Kayley Hatfield BLAST % Normal [facility] Comment on above: Performed By: #### C VDTBH #### [facility] [address] [place] [address] Dr. Kayley Hatfield CORRECTED WBC Normal 4.0-11.0 [facility] Comment on above: Performed By: #### C VDTBH #### [facility] [address] [place] [address] Dr. Kayley Hatfield EOS # 0.14 103/ul Normal 0.00-0.70 [facility] Comment on above: Performed By: #### C VDTBH #### [facility] [address] [place] [address] Dr. Kayley Hatfield EOS% 1.0 % Normal 0.9-7.0 [facility] Comment on above: Performed By: #### C VDTBH #### [facility] [address] [place] [address] Dr. Kayley Hatfield HCT 27.5 % Critically low 36.0-48.[address] [facility] Comment on above: Performed By: #### C VDTBH #### [facility] Laboratory [address] [place] [address] Dr. Kayley Hatfield HGB 7.9 g/dl Critically low 12.0-16.[address] [facility] Comment on above: Performed By: #### C VDTBH #### [facility] Laboratory [address] [address] [address] Kayley Hatfield LYMPHM # 1.42 103/ul Normal 1.20-3.80 [facility] Comment on above: Performed By: #### C VDTBH #### [facility] Laboratory [address] [address] [address] Kayley Hatfield LYMPHM% 10.0 % Critically low 20.5-60.0 [facility] Comment on above: Performed By: #### C VDTBH #### [facility] Laboratory [address] [place] [address] Dr. Kayley Hatfield MCH 21.5 pg Critically low 26.7-34.0 [facility] Comment on above: Performed By: #### C VDTBH #### [facility] Laboratory [address] [place] [address] Dr. Kayley Hatfield MCHC 28.7 g/dl Critically low 29.9-35.[address] [facility] Comment on above: Performed By: #### C VDTBH #### [facility] Laboratory [address] [place] [address] Dr. Kayley Hatfield MCV 74.7 fL Critically low 81.0-99.0 [facility] Comment on above: Performed By: #### C VDTBH #### [facility] Laboratory [address] [place] [address] Dr. Kayley Hatfield METAMYELOCYTE # Normal [facility] Comment on above: Performed By: #### C VDTBH #### [facility] Laboratory [address] [place] [address] Dr. Kayley Hatfield METAMYELOCYTE % Normal [facility] Comment on above: Performed By: #### C VDTBH #### [facility] Laboratory [address] [place] [address] Dr. Kayley Hatfield MONOM# 2.13 103/ul Critically high 0.30-0.80 [facility] Comment on above: Performed By: #### C VDTBH #### [facility] Laboratory [address] [place] [address] Dr. Kayley Hatfield MONOM% 15.0 % Critically high 1.7-12.0 [facility] Comment on above: Performed By: #### C VDTBH #### [facility] Laboratory [address] [place] [address] Dr. Kayley Hatfield MPV 9.5 fL Normal 9.5-13.5 [facility] Comment on above: Performed By: #### C VDTBH #### [facility] Laboratory [address] [place] [address] Dr. Kayley Hatfield MYELOCYTE # Normal [facility] Comment on above: Performed By: #### C VDTBH #### [facility] Laboratory [address] [place] [address] Dr. Kayley Hatfield MYELOCYTE % Normal [facility] Comment on above: Performed By: #### C VDTBH #### [facility] Laboratory [address] [place] [address] Dr. Kayley Hatfield NRBC Normal [facility] Comment on above: Performed By: #### C VDTBH #### [facility] Laboratory [address] [place] [address] Dr. Kayley Hatfield PLT 180 103/ul Normal 150-450 [facility] Comment on above: Performed By: #### C VDTBH #### [facility] Laboratory [address] [place] [address] Dr. Kayley Hatfield RBC 3.68 106/ul Critically low 4.20-5.40 [facility] Comment on above: Performed By: #### C VDTBH #### [facility] Laboratory [address] [place] [address] Dr. Kayley Hatfield RDW 27.5 % Critically high 11.0-15.0 [facility] Comment on above: Performed By: #### C VDTBH #### [facility] Laboratory [address] [place] [address] Dr. Kayley Hatfield SEG # 10.51 103/ul Critically high 1.40-6.50 [facility] Comment on above: Performed By: #### C VDTBH #### [facility] Laboratory [address] [place] [address] Dr. Kayley Hatfield SEG % 74.0 % Normal 43.0-75.0 [facility] Comment on above: Performed By: #### C VDTBH #### [facility] Laboratory [address] [place] [address] Dr. Kayley Hatfield WBC 14.2 103/ul Critically high 4.0-11.0 [facility] Comment on above: Performed By: #### C VDTBH #### [facility] Laboratory [address] [place] [address] Dr. Kayley Hatfield PRBC LEUKOREDUCEDon 03-08-20 ABO and Rh group Nom (Bld) Cross Match Result Compatible Unit Blood Type O Pos Unit Number [id number] Status Information Transfused Product ID Red Blood Cells Product Code [id number] Cross Match Result Compatible Blood Bank Notes CALLED TO VIC IN ICU @1657 Unit Blood Type O Pos Unit Number [id number] Status Information Transfused Product ID Red Blood Cells Product Code [id number] Normal [facility] Comment on above: Performed By: #### P RBC #### [facility] Laboratory [address] [place] [address] Dr. Kayley Hatfield PROF CHEM 8 (BAS METB)on Anion gap [Moles/Vol] 10.1 mmol/L Normal [facility] Comment on above: Performed By: #### B [id number] #### [facility] Laboratory [address] [place] [address] Dr. Kayley Hatfield Calcium [Mass/Vol] 8.8 mg/dL Normal 8.5-10.1 [facility] Comment on above: Performed By: #### B LDCX1 #### [facility] Laboratory [address] [place] [address] Dr. Kayley Hatfield Chloride [Moles/Vol] 100 mmol/L Normal 98-107 [facility] Comment on above: Performed By: #### B [id number] #### [facility] [address] [place] [address] Dr. Kayley Hatfield CO2 [Moles/Vol] 34.2 mmol/L Critically high 21.0-32.0 [facility] Comment on above: Performed By: #### B [id number] #### [facility] [address] [address] [address] Kayley Hatfield EGFR-AF WALLISIAN >60 Normal >=60 [facility] Comment on above: Performed By: #### B LDCX1 #### [facility] [address] [address] [address] Kayley Hatfield EGFR-NON AF WALLISIAN >60 Normal >=60 [facility] Comment on above: Performed By: #### B [id number] #### [facility] [address] [address] [address] Kayley Hatfield Glucose [Mass/Vol] 107 mg/dL Critically high 74-106 [facility] Comment on above: Performed By: #### B LDCX1 #### [facility] [address] [place] [address] Dr. Kayley Hatfield Potassium [Moles/Vol] 4.3 mmol/L Normal 3.5-5.1 [facility] Comment on above: Performed By: #### B [id number] #### [facility] [address] [address] [address] Kayley Hatfield Sodium [Moles/Vol] 140 mmol/L Normal 136-145 [facility] Comment on above: Performed By: #### B [id number] #### [facility] [address] [address] [address] Kayley Hatfield Urea nitrogen [Mass/Vol] 15.0 mg/dL Normal 7.0-18.0 [facility] Comment on above: Performed By: #### B [id number] #### [facility] [address] [address] [address] Kayley Hatfield Urea nitrogen/Creatinine [Mass ratio] 19.0 mg/mg Normal [facility] Comment on above: Performed By: #### B LDCX1 #### [facility] [address] [place] [address] Dr. Kayley Hatfield XR CHEST 1 Von [...] MIGUE REYNOSO Date: 2022-03-08 07:02 Normal [facility] CBC W MANUAL DIFFon 03-07-20 22 ACANTHOCYTES SLIGHT Normal [facility] Comment on above: Performed By: #### B [id number] #### [facility] [address] [place] [address] Dr. Kayley Hatfield ANISOCYTOSIS 2+ Normal [facility] Comment on above: Performed By: #### B LDCX1 #### [facility] [address] [place] [address] Dr. Kayley Hatfield ATYPICAL LYMPH # Normal [facility] Comment on above: Performed By: #### B LDCX1 #### [facility] [address] [place] [address] Dr. Kayley Hatfield ATYPICAL LYMPH % Normal [facility] Comment on above: Performed By: #### B LDCX1 #### [facility] [address] [place] [address] Dr. Kayley Hatfield BAND # 0.0 103/ul Normal 0.0-0.3 [facility] Comment on above: Performed By: #### B LDCX1 #### [facility] [address] [place] [address] Dr. Kayley Hatfield BAND % 0 % Normal 0-5 [facility] Comment on above: Performed By: #### B LDCX1 #### [facility] [address] [place] [address] Dr. Kayley Hatfield BASOM # 0.00 103/ul Normal 0.00-0.10 [facility] Comment on above: Performed By: #### B [id number] #### [facility] [address] [address] [address] Kayley Hatfield BASOM % 0.0 % Critically low 0.2-2.[address] [facility] Comment on above: Performed By: #### B LDCX1 #### [facility] [address] [place] [address] Dr. Kayley Hatfield BLAST # Normal [facility] Comment on above: Performed By: #### B LDCX1 #### [facility] [address] [address] [address] Kayley Hatfield BLAST % Normal [facility] Comment on above: Performed By: #### B LDCX1 #### [facility] [address] [place] [address] Dr. Kayley Hatifeld ANDREE CELLS SLIGHT Normal [facility] Comment on above: Performed By: #### B LDCX1 #### [facility] [address] [place] [address] Dr. Kayley Hatfield CORRECTED WBC Normal 4.0-11.0 [facility] Comment on above: Performed By: #### B LDCX1 #### [facility] [address] [place] [address] Dr. Kayley Hatfield EOS # 0.16 103/ul Normal 0.00-0.70 [facility] Comment on above: Performed By: #### B LDCX1 #### [facility] [address] [place] [address] Dr. Kayley Hatfield EOS% 1.0 % Normal 0.9-7.0 [facility] Comment on above: Performed By: #### B LDCX1 #### [facility] [address] [place] [address] Dr. Kayley Hatfield GIANT PLATELETS SEEN Normal [facility] Comment on above: Performed By: #### B LDCX1 #### [facility] [address] [place] [address] Dr. Kayley Hatfield HCT 31.1 % Critically low 36.0-48.0 [facility] Comment on above: Performed By: #### B LDCX1 #### [facility] Laboratory [address] [place], [place] [id number] Dr. Kayley Hatfield HGB 9.1 g/dl Critically low 12.0-16.0 [facility] Comment on above: Performed By: #### B LDCX1 #### [facility] [address] [place] [address] Dr. Kayley Hatfield HYPOCHROMASIA 1+ Normal [facility] Comment on above: Performed By: #### B LDCX1 #### [facility] [address] [place] [address] Dr. Kayley Hatfield LYMPHM # 2.09 103/ul Normal 1.20-3.80 [facility] Comment on above: Performed By: #### B LDCX1 #### [facility] [address] [place] [address] Dr. Kayley Hatfield LYMPHM% 13.0 % Critically low 20.5-60.0 [facility] Comment on above: Performed By: #### B LDCX1 #### [facility] [address] [place] [address] Dr. Kayley Hatfield MCH 21.4 pg Critically low 26.7-34.0 [facility] Comment on above: Performed By: #### B LDCX1 #### [facility] [address] [place] [address] Dr. Kayley Hatfield MCHC 29.3 g/dl Critically low 29.9-35.2 [facility] Comment on above: Performed By: #### B LDCX1 #### [facility] [address] [place] [address] Dr. Kayley Hatfield MCV 73.0 fL Critically low 81.0-99.0 [facility] Comment on above: Performed By: #### B LDCX1 #### [facility] [address] [place] [address] Dr. Kayley Hatfield METAMYELOCYTE # Normal [facility] Comment on above: Performed By: #### B LDCX1 #### [facility] [address] [place] [address] Dr. Kayley Hatfield METAMYELOCYTE % Normal [facility] Comment on above: Performed By: #### B LDCX1 #### [facility] [address] [place] [address] Dr. Kayley Hatfield MICROCYTOSIS SLIGHT Normal [facility] Comment on above: Performed By: #### B LDCX1 #### [facility] [address] [place] [address] Dr. Kayley Hatfield MONOM# 0.48 103/ul Normal 0.30-0.80 [facility] Comment on above: Performed By: #### B LDCX1 #### [facility] [address] [place] [address] Dr. Kayley Hatfield MONOM% 3.0 % Normal 1.7-12.0 [facility] Comment on above: Performed By: #### B LDCX1 #### [facility] [address] [place] [address] Dr. Kayley Hatfield MPV 8.9 fL Critically low 9.5-13.5 [facility] Comment on above: Performed By: #### B LDCX1 #### [facility] [address] [place] [address] Dr. Kayley Hatfield MYELOCYTE # Normal [facility] Comment on above: Performed By: #### B LDCX1 #### [facility] [address] [place] [address] Dr. Kayley Hatfield MYELOCYTE % Normal [facility] Comment on above: Performed By: #### B LDCX1 #### [facility] [address] [place] [address] Dr. Kayley Hatfield NRBC Normal [facility] Comment on above: Performed By: #### B LDCX1 #### [facility] [address] [place] [address] Dr. Kayley Hatfield PLT 243 103/ul Normal 150-450 [facility] Comment on above: Performed By: #### B LDCX1 #### [facility] [address] [place] [address] Dr. Kayley Hatfield RBC 4.26 106/ul Normal 4.20-5.40 [facility] Comment on above: Performed By: #### B LDCX1 #### [facility] [address] [address] [address] Kayley Hatfield RDW 27.1 % Critically high 11.0-15.0 [facility] Comment on above: Performed By: #### B LDCX1 #### [facility] [address] [place], [place] [address] Dr. Kayley Hatfield SEG # 13.36 103/ul Critically high 1.40-6.50 [facility] Comment on above: Performed By: #### B LDCX1 #### [facility] [address] [address] [address] Kayley Hatfield SEG % 83.0 % Critically high 43.0-75.0 [facility] Comment on above: Performed By: #### B LDCX1 #### [facility] [address] [address] [address] Kayley Hatfield WBC 16.1 103/ul Critically high 4.0-11.0 [facility] Comment on above: Performed By: #### B LDCX1 #### [facility] [address] [address] [address] CHEST WO CONon [...] ASAEL MALDONADO Date: 2022-03-07 09:42 Normal [facility] HEMOGLOBIN AND HEMATOCRITon 03-07-2022 Hematocrit (Bld) [Volume fraction] 31.8 % Critically low 36.0-48.0 [facility] Comment on above: Performed By: #### H GBHCT #### [facility] Laboratory [address] [place] [address] Dr. Kayley Hatfield Hemoglobin (Bld) [Mass/Vol] 9.5 g/dL Critically low 12.0-16.0 [facility] Comment on above: Performed By: #### H GBHCT #### [facility] [address] [place] [address] Dr. Kayley Hatfield RETICULOCYTEon 03-07-2022 RETIC 1.92 % Normal 0.60-3.10 [facility] Comment on above: Performed By: #### O BSCRN #### [facility] [address] [place] [address] Dr. Kayley Hatfield XR CHEST 1 Von [...] ASAEL MALDONADO Date: 2022-03-07 12:54 Normal [facility] XR CHEST 1 V EXAM: XR CHEST [...] ASAEL MALDONADO Date: 2022-03-07 07:10 Normal [facility] BNPon 03-06-2022 Natriuretic peptide B (Bld) [Mass/Vol] 441.0 pg/mL Normal <=900.0 [facility] Comment on above: Performed By: #### H GBHCT #### [facility] [address] [place] [address] Dr. Kayley Hatfield CBC AUTO DIFFon 03-06-2022 BASO # 0.1 103/ul Normal 0.0-0.1 [facility] Comment on above: Performed By: #### O BSCRN #### [facility] [address] [place] [address] Dr. Kayley Hatfield Basophils/100 WBC (Bld) 0.7 % Normal 0.2-2.0 [facility] Comment on above: Performed By: #### O BSCRN #### [facility] [address] [place] [address] Dr. Kayley Hatfield EO # 0.1 103/ul Normal 0.0-0.7 [facility] Comment on above: Performed By: #### O BSCRN #### [facility] [address] [place] [address] Dr. Kayley Hatfield Eosinophils/100 WBC (Bld) 0.7 % Critically low 0.9-7.0 [facility] Comment on above: Performed By: #### O BSCRN #### [facility] [address] [address] [address] Kayley Hatfield Erythrocyte distribution width (RBC) [Ratio] 20.0 % Critically high 11.0-15.0 [facility] Comment on above: Performed By: #### O BSCRN #### [facility] [address] [place] [address] Dr. Kayley Hatfield Hematocrit (Bld) [Volume fraction] 20.1 % Critically low 36.0-48.0 [facility] Comment on above: Performed By: #### O BSCRN #### [facility] [address] [place] [address] Dr. Kayley Hatfield Hemoglobin (Bld) [Mass/Vol] 4.9 g/dL Critically low 12.0-16.0 [facility] Comment on above: Performed By: #### O BSCRN #### [facility] [address] [place] [address] Dr. Kayley Hatfield IG # 0.12 10e3/ul Critically high 0.00-0.03 [facility] Comment on above: Performed By: #### O BSCRN #### [facility] [address] [place] [address] Dr. Kayley Hatfield IG % 0.8 % Critically high 0.0-0.5 [facility] Comment on above: Performed By: #### O BSCRN #### [facility] [address] [place] [address] Dr. Kayley Hatfield LYMPH # 1.0 103/ul Critically low 1.2-3.[address] [facility] Comment on above: Performed By: #### O BSCRN #### [facility] [address] [place] [address] Dr. Kayley Hatfield Lymphocytes/100 WBC (Bld) 6.5 % Critically low 20.5-60.0 [facility] Comment on above: Performed By: #### O BSCRN #### [facility] [address] [place] [address] Dr. Kayley Hatfield MANUAL DIFF REQ NO Normal [facility] Comment on above: Performed By: #### O BSCRN #### [facility] [address] [address] [address] Kayley Hatfield MCH (RBC) [Entitic mass] 15.2 pg Critically low 26.7-34.0 [facility] Comment on above: Performed By: #### O BSCRN #### [facility] [address] [place] [address] Dr. Kayley Hatfield MCHC (RBC) [Mass/Vol] 24.4 g/dL Critically low 29.9-35.2 [facility] Comment on above: Performed By: #### O BSCRN #### [facility] [address] [place] [address] Dr. Kayley Hatfield MCV (RBC) [Entitic vol] 62.2 fL Critically low 81.0-99.0 [facility] Comment on above: Performed By: #### O BSCRN #### [facility] [address] [place] [address] Dr. Kayley Hatfield MONO # 0.5 103/ul Normal 0.3-0.8 [facility] Comment on above: Performed By: #### O BSCRN #### [facility] [address] [place] [address] Dr. Kayley Hatfield Monocytes/100 WBC (Bld) 3.5 % Normal 1.7-12.0 [facility] Comment on above: Performed By: #### O BSCRN #### [facility] [address] [place] [address] Dr. Kayley Hatfield NEUT # 13.2 103/ul Critically high 1.4-6.5 [facility] Comment on above: Performed By: #### O BSCRN #### [facility] [address] [place] [address] Dr. Kayley Hatfield Neutrophils/100 WBC (Bld) 87.8 % Critically high 43.0-75.0 [facility] Comment on above: Performed By: #### O BSCRN #### [facility] [address] [place] [address] Dr. Kayley Hatfield Platelet mean volume (Bld) [Entitic vol] 9.1 fL Critically low 9.5-13.5 [facility] Comment on above: Performed By: #### O BSCRN #### [facility] [address] [place] [address] Dr. Kayley Hatfield PLT 384 103/ul Normal 150-450 [facility] Comment on above: Performed By: #### O BSCRN #### [facility] [address] [place] [address] Dr. Kalyey Hatfield RBC 3.23 106/ul Critically low 4.20-5.40 [facility] Comment on above: Performed By: #### O BSCRN #### [facility] [address] [place] [address] Dr. Kayley Hatfield WBC 15.1 103/ul Critically high 4.0-11.0 [facility] Comment on above: Performed By: #### O BSCRN #### [facility] [address] [place] [address] Dr. Kayley Hatfield CULTURE BLOODon 03-06-2022 Microscopic examination of blood, culture Culture Observations: NO GROWTH AT 5 DAYS. Normal [facility] Comment on above: Performed By: #### C VDTBH #### [facility] [address] [place] [address] Dr. Kayley Hatfield Performed By: #### B LDCX1 #### [facility] [address] [place] [address] Dr. Kayley Hatfield Covid-19 PCR (CVDTBH)on 02-07 SARS-CoV-2 (COVID-19) RNA ELBA+probe Ql (Unsp spec) Not detected Normal NOT DETECTED [facility] Comment on above: Result Comment: When diagnostic [...] for this test is supported by the [place] [employer]'s declaration that [...] used). Performed By: #### C VDTBH #### [facility] [address] [place] [address] Dr. Kayley Hatfield ER URINE PROFILEon 2 Bilirubin Ql (U) Negative Normal NEGATIVE [facility] Comment on above: Performed By: #### P RBC #### [facility] [facility] [address] [place] [address] Dr. Kayley Hatfield Clarity (U) CLEAR Normal CLEAR [facility] Comment on above: Performed By: #### P RBC #### [facility] [address] [place] [address] Dr. Kayley Hatfield Color (U) LT. YELLOW Normal YELLOW [facility] Comment on above: Performed By: #### P RBC #### [facility] [address] [place] [address] Dr. Kayley Hatfield ERUAHD A micrscopic examination will be performed if indicated. Normal [facility] Comment on above: Performed By: #### P RBC #### [facility] [address] [place] [address] Dr. Kayley Hatfield Glucose Ql (U) Negative Normal NEGATIVE The [facility] Comment on above: Performed By: #### P RBC #### [facility] [address] [place] [address] Dr. Kayley Hatfield Hemoglobin Ql (U) Negative Normal NEGATIVE [facility] Comment on above: Performed By: #### P RBC #### [facility] [address] [place] [address] Dr. Kayley Hatfield Ketones Ql (U) Negative Normal NEGATIVE The [facility] Comment on above: Performed By: #### P RBC #### [facility] [address] [place] [address] Dr. Kayley Hatfield LEUKOCYTES Negative Normal NEGATIVE [facility] Comment on above: Performed By: #### P RBC #### [facility] [address] [address] [address] Kayley Hatfield Nitrite Ql (U) Negative Normal NEGATIVE The [facility] Comment on above: Performed By: #### P RBC #### [facility] [address] [place] [address] Dr. Kayley Hatfield pH (U) 6.0 [pH] Normal 5-9 [facility] Comment on above: Performed By: #### P RBC #### [facility] [address] [place] [address] Dr. Kayley Hatfield SPEC GRAVITY 1.010 Normal 1.005-<=1.025 [facility] Comment on above: Performed By: #### P RBC #### [facility] [address] [place] [address] Dr. Kayley Hatfield UA PROTEIN Negative Normal NEGATIVE/ TRACE [facility] Comment on above: Performed By: #### P RBC #### [facility] [address] [place] [address] Dr. Kayley Hatfield UR MICRO IND NOT INDICATED Normal [facility] Comment on above: Performed By: #### P RBC #### [facility] [address] [place] [address] Dr. Kayley Hatfield Urobilinogen Qn (U) 0.2 {Lu'U}/dL Normal 0.2 - 1. 0 [facility] Comment on above: Performed By: #### P RBC #### [facility] [address] [place] [address] Dr. Kayley Hatfield FERRITINon 03-06-2022 Ferritin [Mass/Vol] 4.0 ng/mL Critically low 8.0-252.0 T [facility] Comment on above: Performed By: #### O BSCRN #### [facility] [address] [place] [address] Dr. Kayley Hatfield IRON AND TIBCon 03-06-2022 % SATURATION 2.3 % Normal [facility] Comment on above: Performed By: #### C VDTBH #### [facility] [address] [address] [address] Kayley Hatfield Iron [Mass/Vol] 12.0 ug/dL Critically low 50.0-170.0 [facility] Comment on above: Performed By: #### C VDTBH #### [facility] [address] [place] [address] Dr. Kayley Hatfield TIBC DIRECT 532.0 ug/dL Critically high 250.0-450.0 [facility] Comment on above: Performed By: #### C VDTBH #### [facility] [address] [place] [address] Dr. Kayley Hatfield OCC BLD IMMUNO SCREENon 02-07 OCCULT BLOOD Negative Normal NEGATIVE [facility] Comment on above: Performed By: #### O BSCRN #### [facility] [address] [place] [address] Dr. Kayley Hatfield PROF 14(COMP METB)on 022 Albumin [Mass/Vol] 3.6 g/dL Normal 3.4-5.0 [facility] Comment on above: Performed By: #### H GBHCT #### [facility] [address] [place] [address] Dr. Kayley Hatfield Albumin/Globulin [Mass ratio] 1.2 {ratio} Normal [facility] Comment on above: Performed By: #### H GBHCT #### [facility] [address] [place] [address] Dr. Kayley Hatfield ALP [Catalytic activity/Vol] 71 U/L Normal 46-116 [facility] Comment on above: Performed By: #### H GBHCT #### [facility] [address] [place] [address] Dr. Kayley Hatfield ALT [Catalytic activity/Vol] 20 U/L Normal 14-59 [facility] Comment on above: Performed By: #### H GBHCT #### [facility] [address] [place] [address] Dr. Kayley Hatfield Anion gap [Moles/Vol] 9.8 mmol/L Normal [facility] Comment on above: Performed By: #### H GBHCT #### [facility] [address] [address] [address] Kayley Hatfield AST [Catalytic activity/Vol] 12 U/L Critically low 15-37 [facility] Comment on above: Performed By: #### H GBHCT #### [facility] [address] [address] [address] Kayley Hatfield Bilirubin [Mass/Vol] 0.4 mg/dL Normal 0.2-1.0 [facility] Comment on above: Performed By: #### H GBHCT #### [facility] [address] [address] [address] Kayley Hatfield Calcium [Mass/Vol] 9.0 mg/dL Normal 8.5-10.1 [facility] Comment on above: Performed By: #### H GBHCT #### [facility] [address] [address] [address] Kayley Hatfield Chloride [Moles/Vol] 99 mmol/L Normal 98-107 [facility] Comment on above: Performed By: #### H GBHCT #### [facility] [address] [address] [address] Kayley Hatfield CO2 [Moles/Vol] 31.5 mmol/L Normal 21.0-32.0 [facility] Comment on above: Performed By: #### H GBHCT #### [facility] [address] [address] [address] Kayley Hatfield Creatinine [Mass/Vol] 0.89 mg/dL Normal 0.55-1.02 [facility] Comment on above: Performed By: #### H GBHCT #### [facility] [address] [address] [address] Kayley Hatfield EGFR-AF WALLISIAN >60 Normal >=60 [facility] Comment on above: Performed By: #### H GBHCT #### [facility] [address] [address] [address] Kayley Hatfield EGFR-NON AF WALLISIAN >60 Normal >=60 [facility] Comment on above: Performed By: #### H GBHCT #### [facility] [address] [address] [address] Kayley Hatfield Globulin (S) [Mass/Vol] 3.1 g/dL Normal [facility] Comment on above: Performed By: #### H GBHCT #### [facility] [address] [address] [address] Kayley Hatfield Glucose [Mass/Vol] 174 mg/dL Critically high 74-106 [facility] Comment on above: Performed By: #### H GBHCT #### [facility] [address] [address] [address] Kayley Hatfield Potassium [Moles/Vol] 4.3 mmol/L Normal 3.5-5.1 [facility] Comment on above: Performed By: #### H GBHCT #### [facility] [address] [address] [address] Kayley Hatfield Protein [Mass/Vol] 6.7 g/dL Normal 6.4-8.2 [facility] Comment on above: Performed By: #### H GBHCT #### [facility] [address] [address] [address] Kayley Hatfield Sodium [Moles/Vol] 136 mmol/L Normal 136-145 [facility] Comment on above: Performed By: #### H GBHCT #### [facility] [address] [address] [address] Kayley Hatfield Urea nitrogen [Mass/Vol] 17.0 mg/dL Normal 7.0-18.0 [facility] Comment on above: Performed By: #### H GBHCT #### [facility] [address] [address] [address] Kayley Hatfield Urea nitrogen/Creatinine [Mass ratio] 19.1 mg/mg Normal [facility] Comment on above: Performed By: #### H GBHCT #### [facility] [address] [address] [address] Kayley Hatfield TROPONIN, HIGH SENSITIVITYon 03-06-2022 HSTROP 7.0 pg/mL Normal 4.0-51.3 [facility] Comment on above: Result Comment: CUT- OFF POINTS HAVE BEEN ESTABLISHED BASED ON THE FOURTH UNIVERSAL DEFINITIONS OF MYOCARDIAL INFARCTION. THE UPPER REFERENCE LIMIT (URL) OF TROPONIN, DEFINED THE 99TH PERCENTILE OF cTnI DISTRIBUTION IN A REFERENCE POPULATION, HAS BEEN CONFIRMED THE DECISION THRESHOLD FOR AR DIAGNOSIS. Performed By: #### H GBHCT #### [facility] [address] [place], [place] [address] Dr. Kayley Hatfield TYPE AND SCREENon 03-06-2022 TYPE AND SCREEN Negative Normal [facility] Comment on above: Performed By: #### C VDTBH #### [facility] [address] [place], [place] [address] Dr. Kayley Hatfield XR CHEST 1 Von [...] MIGUE REYNOSO Date: 2022-03-06 16:10 Normal [facility] XR CHEST 1 V EXAMINATION: XR CHES [...] by: MIGUE REYNOSO Date: 2022-03-06 14:39 Normal [facility] XR DEXA BONE DENSITYon 12-22 XR [...] MIGUE REYNOSO Date: 2021-12-22 17:05 Normal [facility] CARDIAC ABDIAZIZ ADMITon 022 CK [Catalytic activity/Vol] 21 U/L Critically low 26-192 [facility] Comment on above: Performed By: #### B [id number] #### [facility] [address] [address] [address] Kayley Hatfield CK.MB [Mass/Vol] 1.00 ng/mL Normal <=3.60 [facility] Comment on above: Performed By: #### B LDCX1 #### [facility] [address] [address] [address] Kayley Hatfield HSTROP 11.6 pg/mL Normal 4.0-51.3 [facility] Comment on above: Result Comment: CUT- OFF POINTS HAVE BEEN ESTABLISHED BASED ON THE FOURTH UNIVERSAL DEFINITIONS OF MYOCARDIAL INFARCTION. THE UPPER REFERENCE LIMIT (URL) OF TROPONIN, DEFINED THE 99TH PERCENTILE OF cTnI DISTRIBUTION IN A REFERENCE POPULATION, HAS BEEN CONFIRMED THE DECISION THRESHOLD FOR AR DIAGNOSIS. Performed By: #### B [id number] #### [facility] [address] [address] [address] Kayley Hatfield ROD 48 ng/mL Normal 9-82 [facility] Comment on above: Performed By: #### B [id number] #### [facility] [address] [address] [address] Kayley Hatfield CBC AUTO DIFFon 12-14-2021 BASO # 0.1 103/ul Normal 0.0-0.1 [facility] Comment on above: Performed By: #### P RBC #### [facility] [address] [address] [address] Kayley Hatfield Basophils/100 WBC (Bld) 0.9 % Normal 0.2-2.0 [facility] Comment on above: Performed By: #### P RBC #### [facility] [address] [address] [address] Kayley Hatfield EO # 0.1 103/ul Normal 0.0-0.7 [facility] Comment on above: Performed By: #### P RBC #### [facility] [address] [place] [address] Dr. Kayley Hatfield Eosinophils/100 WBC (Bld) 0.5 % Critically low 0.9-7.0 [facility] Comment on above: Performed By: #### P RBC #### [facility] [address] [place] [address] Dr. Kayley Hatfield Erythrocyte distribution width (RBC) [Ratio] 15.4 % Critically high 11.0-15.0 [facility] Comment on above: Performed By: #### P RBC #### [facility] [address] [place] [address] Dr. Kayley Hatfield Hematocrit (Bld) [Volume fraction] 29.3 % Critically low 36.0-48.0 [facility] Comment on above: Performed By: #### P RBC #### [facility] [address] [place] [address] Dr. Kayley Hatfield Hemoglobin (Bld) [Mass/Vol] 8.3 g/dL Critically low 12.0-16.0 [facility] Comment on above: Performed By: #### P RBC #### [facility] [address] [place] [address] Dr. Kayley Hatfield IG # 0.05 10e3/ul Critically high 0.00-0.03 [facility] Comment on above: Performed By: #### P RBC #### [facility] [address] [address] [address] Kayley Hatfield IG % 0.4 % Normal 0.0-0.5 [facility] Comment on above: Performed By: #### P RBC #### [facility] [address] [address] [address] Kayley Hatfield LYMPH # 1.2 103/ul Normal 1.2-3.8 [facility] Comment on above: Performed By: #### P RBC #### [facility] [address] [address] [address] Kayley Hatfield Lymphocytes/100 WBC (Bld) 10.6 % Critically low 20.5-60.0 [facility] Comment on above: Performed By: #### P RBC #### [facility] [address] [place] [address] Dr. Kayley Hatfield MANUAL DIFF REQ NO Normal [facility] Comment on above: Performed By: #### P RBC #### [facility] [address] [place] [address] Dr. Kayley Hatfield MCH (RBC) [Entitic mass] 21.4 pg Critically low 26.7-34.0 [facility] Comment on above: Performed By: #### P RBC #### [facility] [address] [place] [address] Dr. Kayley Hatfield MCHC (RBC) [Mass/Vol] 28.3 g/dL Critically low 29.9-35.2 [facility] Comment on above: Performed By: #### P RBC #### [facility] [address] [place] [address] Dr. Kayley Hatfield MCV (RBC) [Entitic vol] 75.5 fL Critically low 81.0-99.0 [facility] Comment on above: Performed By: #### P RBC #### [facility] [address] [place] [address] Dr. Kayley Hatfield MONO # 0.9 103/ul Critically high 0.3-0.8 [facility] Comment on above: Performed By: #### P RBC #### [facility] [address] [address] [address] Kayley Hatfield Monocytes/100 WBC (Bld) 7.6 % Normal 1.7-12.0 [facility] Comment on above: Performed By: #### P RBC #### [facility] [address] [address] [address] Kayley Hatfield NEUT # 9.2 103/ul Critically high 1.4-6.5 [facility] Comment on above: Performed By: #### P RBC #### [facility] [address] [address] [address] Kayley Hatfield Neutrophils/100 WBC (Bld) 80.0 % Critically high 43.0-75.0 [facility] Comment on above: Performed By: #### P RBC #### [facility] [address] [place] [address] Dr. Kayley Hatfield Platelet mean volume (Bld) [Entitic vol] 9.3 fL Critically low 9.5-13.5 [facility] Comment on above: Performed By: #### P RBC #### [facility] [address] [address] [address] Kayley Hatfield PLT 498 103/ul Critically high 150-450 [facility] Comment on above: Performed By: #### P RBC #### [facility] [address] [place] [address] Dr. Kayley Hatfield RBC 3.88 106/ul Critically low 4.20-5.40 [facility] Comment on above: Performed By: #### P RBC #### [facility] [address] [place] [address] Dr. Kayley Hatfield WBC 11.5 103/ul Critically high 4.0-11.0 [facility] Comment on above: Performed By: #### P RBC #### [facility] [address] [place] [address] Dr. Kayley Hatfield ER URINE PROFILEon 2 Bilirubin Ql (U) Negative Normal NEGATIVE [facility] Comment on above: Performed By: #### H GBHCT #### [facility] [address] [place], [place] [id number] Dr. Kayley Hatfield Clarity (U) CLEAR Normal CLEAR [facility] Comment on above: Performed By: #### H GBHCT #### [facility] [address] [place] [address] Dr. Kayley Hatfield Color (U) LT. YELLOW Normal YELLOW [facility] Comment on above: Performed By: #### H GBHCT #### [facility] [address] [place] [address] Dr. Kayley Hatfield ERUAHD A micrscopic examination will be performed if indicated. Normal [facility] Comment on above: Performed By: #### H GBHCT #### [facility] [address] [place] [address] Dr. Kayley Hatfield Glucose Ql (U) Negative Normal NEGATIVE [facility] Comment on above: Performed By: #### H GBHCT #### [facility] [address] [place] [address] Dr. Kayley Hatfield Hemoglobin Ql (U) TRACE-INTACT Abnormal NEGATIVE [facility] Comment on above: Performed By: #### H GBHCT #### [facility] [address] [place] [address] Dr. Kayley Hatfield Ketones Ql (U) Negative Normal NEGATIVE [facility] Comment on above: Performed By: #### H GBHCT #### [facility] [address] [place] [address] Dr. Kayley Hatfield LEUKOCYTES Negative Normal NEGATIVE [facility] Comment on above: Performed By: #### H GBHCT #### [facility] [address] [place] [address] Dr. Kayley Hatfield Nitrite Ql (U) Negative Normal NEGATIVE [facility] Comment on above: Performed By: #### H GBHCT #### [facility] [address] [place] [address] Dr. Kayley Hatfield pH (U) 6.5 [pH] Normal 5-9 [facility] Comment on above: Performed By: #### H GBHCT #### [facility] [address] [place] [address] Dr. Kayley Hatfield SPEC GRAVITY 1.015 Normal 1.005-<=1.025 [facility] Comment on above: Performed By: #### H GBHCT #### [facility] [address] [place] [address] Dr. Kayley Hatfield UA PROTEIN Negative Normal NEGATIVE/ TRACE [facility] Comment on above: Performed By: #### H GBHCT #### [facility] [address] [place] [address] Dr. Kayley Hatfield UR MICRO IND INDICATED Normal [facility] Comment on above: Performed By: #### H GBHCT #### [facility] [address] [place] [address] Dr. Kayley Hatfield Urobilinogen Qn (U) 0.2 {Lu'U}/dL Normal 0.2 - 1. 0 [facility] Comment on above: Performed By: #### H GBHCT #### [facility] [address] [place] [address] Dr. Kayley Hatfield PROF 14(COMP METB)on 022 Albumin [Mass/Vol] 3.2 g/dL Critically low 3.4-5.0 [facility] Comment on above: Performed By: #### B [id number] #### [facility] [address] [place] [address] Dr. Kayley Hatfield Albumin/Globulin [Mass ratio] 0.8 {ratio} Normal [facility] Comment on above: Performed By: #### B [id number] #### [facility] [address] [place] [address] Dr. Kayley Hatfield ALP [Catalytic activity/Vol] 72 U/L Normal 46-116 [facility] Comment on above: Performed By: #### B [id number] #### [facility] [address] [place] [address] Dr. Kayley Hatfield ALT [Catalytic activity/Vol] 24 U/L Normal 14-59 [facility] Comment on above: Performed By: #### B [id number] #### [facility] [address] [place] [address] Dr. Kayley Hatfield Anion gap [Moles/Vol] 13.0 mmol/L Normal [facility] Comment on above: Performed By: #### B [id number] #### [facility] [address] [place] [address] Dr. Kayley Hatfield AST [Catalytic activity/Vol] 18 U/L Normal 15-37 [facility] Comment on above: Performed By: #### B [id number] #### [facility] [address] [place] [address] Dr. Kayley Hatfield Bilirubin [Mass/Vol] 0.3 mg/dL Normal 0.2-1.0 [facility] Comment on above: Performed By: #### B [id number] #### [facility] [address] [place] [address] Dr. Kayley Hatfield Calcium [Mass/Vol] 9.9 mg/dL Normal 8.5-10.1 [facility] Comment on above: Performed By: #### B [id number] #### [facility] [address] [place] [address] Dr. Kayley Hatfield Chloride [Moles/Vol] 98 mmol/L Normal 98-107 [facility] Comment on above: Performed By: #### B [id number] #### [facility] [address] [place] [address] Dr. Kayley Hatfield CO2 [Moles/Vol] 29.8 mmol/L Normal 21.0-32.0 [facility] Comment on above: Performed By: #### B [id number] #### [facility] [address] [place] [address] Dr. Kayley Hatfield Creatinine [Mass/Vol] 1.23 mg/dL Critically high 0.55-1.02 [facility] Comment on above: Performed By: #### B [id number] #### [facility] [address] [place] [address] Dr. Kayley Hatfield EGFR-AF WALLISIAN 53 mL/min/1.73m2 Critically low >=60 [facility] Comment on above: Performed By: #### B [id number] #### [facility] [address] [place] [address] Dr. Kayley Hatfield EGFR-NON AF WALLISIAN 44 mL/min/1.73m2 Critically low >=60 [facility] Comment on above: Performed By: #### B [id number] #### [facility] [address] [address] [address] Kayley Hatfield Globulin (S) [Mass/Vol] 3.9 g/dL Normal [facility] Comment on above: Performed By: #### B [id number] #### [facility] [address] [address] [address] Kayley Hatfield Glucose [Mass/Vol] 160 mg/dL Critically high 74-106 [facility] Comment on above: Performed By: #### B [id number] #### [facility] [address] [place] [address] Dr. Kayley Hatfield Potassium [Moles/Vol] 3.8 mmol/L Normal 3.5-5.1 [facility] Comment on above: Performed By: #### B [id number] #### [facility] [address] [place] [address] Dr. Kayley Hatfield Protein [Mass/Vol] 7.1 g/dL Normal 6.4-8.2 [facility] Comment on above: Performed By: #### B [id number] #### [facility] [address] [place] [address] Dr. Kayley Hatfield Sodium [Moles/Vol] 137 mmol/L Normal 136-145 [facility] Comment on above: Performed By: #### B [id number] #### [facility] [address] [place] [address] Dr. Kayley Hatfield Urea nitrogen [Mass/Vol] 20.0 mg/dL Critically high 7.0-18.0 [facility] Comment on above: Performed By: #### B [id number] #### [facility] [address] [place] [address] Dr. Kayley Hatfield Urea nitrogen/Creatinine [Mass ratio] 16.3 mg/mg Normal [facility] Comment on above: Performed By: #### B LDCX1 #### [facility] [address] [place] [address] Dr. Kayley Hatfield TROPONIN, HIGH SENSITIVITYon 12-14-2021 HSTROP 11.3 pg/mL Normal 4.0-51.3 [facility] Comment on above: Result Comment: CUT- OFF POINTS HAVE BEEN ESTABLISHED BASED ON THE FOURTH UNIVERSAL DEFINITIONS OF MYOCARDIAL INFARCTION. THE UPPER REFERENCE LIMIT (URL) OF TROPONIN, DEFINED THE 99TH PERCENTILE OF cTnI DISTRIBUTION IN A REFERENCE POPULATION, HAS BEEN CONFIRMED THE DECISION THRESHOLD FOR AR DIAGNOSIS. Performed By: #### P RTELEC #### [facility] [address] [place] [address] Dr. Kayley Hatfield URINE MICROSCOPIC ONLYon BACTERIA NONE SEEN Normal NONE SEEN [facility] Comment on above: Performed By: #### H GBHCT #### [facility] [address] [place] [address] Dr. Kayley Hatfield Bacteria identified Cx Nom (U) NOT INDICATED Normal [facility] Comment on above: Performed By: #### H GBHCT #### [facility] [address] [place] [address] Dr. Kayley Hatfield CAST SEEN Abnormal NONE SEEN [facility] Comment on above: Performed By: #### H GBHCT #### [facility] [address] [place] [address] Dr. Kayley Hatfield Crystals LM Nom (Urine sed) NONE SEEN Normal NONE SEEN [facility] Comment on above: Performed By: #### H GBHCT #### [facility] [address] [place] [address] Dr. Kayley Hatfield Epithelial cells LM Ql (Urine sed) FEW Abnormal NONE SEEN /RARE [facility] Comment on above: Performed By: #### H GBHCT #### [facility] [address] [place] [address] Dr. Kayley Hatfield HYALINE CAST RARE Normal [facility] Comment on above: Performed By: #### H GBHCT #### [facility] [address] [place] [address] Dr. Kayley Hatfield MUCOUS NONE SEEN Normal NONE SEEN [facility] Comment on above: Performed By: #### H GBHCT #### [facility] [address] [place] [address] Dr. Kayley Hatfield RBC 0-2 Normal 0-2 [facility] Comment on above: Performed By: #### H GBHCT #### [facility] [address] [place] [address] Dr. Kayley Hatfield WBC 0-2 Abnormal NONE SEEN [facility] Comment on above: Performed By: #### H GBHCT #### [facility] [address] [place] [address] Dr. Kayley Hatfield XR CHEST 1 Von [...] ASAEL MALDONADO Date: 2021-12-14 13:43 Normal [facility] BUNon 12-12-2021 Urea nitrogen [Mass/Vol] 15.0 mg/dL Normal 7.0-18.0 [facility] Comment on above: Performed By: #### P RBC #### [facility] [address] [place] [address] Dr. Kayley Hatfield CALCIUMon 12-12-2021 Calcium [Mass/Vol] 9.1 mg/dL Normal 8.5-10.1 [facility] Comment on above: Performed By: #### C VDTBH #### [facility] [address] [place] [address] Dr. Kayley Hatfield CREATININEon 12-12-2021 Creatinine [Mass/Vol] 1.05 mg/dL Critically high 0.55-1.02 [facility] Comment on above: Performed By: #### P RBC #### [facility] [address] [place] [address] Dr. Kayley Hatfield EGFR-AF WALLISIAN >60 Normal >=60 [facility] Comment on above: Performed By: #### P RBC #### [facility] [address] [place] [address] Dr. Kayley Hatfield EGFR-NON AF WALLISIAN 53 mL/min/1.73m2 Critically low >=60 [facility] Comment on above: Performed By: #### P RBC #### [facility] [address] [place] [address] Dr. Kayley Hatfield CRPon 12-12-2021 CRP [Mass/Vol] mg/L Normal <=1.[address] [facility] Comment on above: Performed By: #### P RBC #### [facility] [address] [place] [address] Dr. Kayley Hatfield MAGNESIUMon 12-12-2021 Magnesium [Mass/Vol] 1.9 mg/dL Normal 1.8-2.4 [facility] Comment on above: Performed By: #### C VDTBH #### [facility] [address] [place] [address] Dr. Kayley Hatfield PHOSPHORUSon 12-12-2021 Phosphate [Mass/Vol] 4.1 mg/dL Normal 2.6-4.7 [facility] Comment on above: Performed By: #### C VDTBH #### [facility] [address] [place] [address] Dr. Kayley Hatfield SED RATE WESTERGRENon 2021 SED RATE 35 mm/hr Critically high <=30 [facility] Comment on above: Performed By: #### P RTELEC #### [facility] [address] [place] [address] Dr. Kayley Hatfield Vital Signs Date Time Vital Sign Value Performing Clinician Clarisse marin 06-26-2023 15:27-0500 Diastolic blood pressure 103 mm[Hg] MD Erasto Burroughs Work Phone: [facility] 06-26-2023 15:27-0500 Heart rate 81 /min MD Erasto Burroughs Work Phone: [facility] 06-26-2023 15:27-0500 Respiratory rate 18 /min MD Erasto Burroughs Work Phone: [facility] 06-26-2023 15:27-0500 SaO2% (BldA) [Mass fraction] 95 % MD Erasto Burroughs Work Phone: [facility] 06-26-2023 15:27-0500 Systolic blood pressure 162 mm[Hg] MD Erasto Burroughs Work Phone: [facility] 06-26-2023 13:44-0500 Body height 162.56 cm MD Erasto Burroughs Work Phone: [facility] 06-26-2023 13:44-0500 Body weight 59.87 kg MD Erasto Burroughs Work Phone: [facility] 06-26-2023 13:44-0500 Inhaled oxygen flow rate 2 L/min MD Erasto Burroughs Work Phone: [facility] Encounters Encounter Date Encounter Type Care Provider Facility Start: 11-10-2024 ambulatory Ihsan BROWN [facility] ty:[facility] Start: 05-12-2024 End: 05-12-2024 ambulatory Ihsan BROWN Facility:[facility] Start: 04-29-2024 End: 04-30-2024 Refill Erasto Burroughs MD Work Phone: [facility] Comment on above: DDD (degenerative di sc disease), lumbar Start: 02-21-2024 End: 02-21-2024 ambulatory ERASTO BURROUGHS Not Available Start: 01-07-2024 End: 01-07-2024 ambulatory [facility] Start: 11-09-2023 End: 11-09-2023 ambulatory Ihsan BROWN Facility:[facility] Start: 08-18-2023 Refill Erasto Leggett Work Phone: [facility] Comment on above: DDD (degenerative di sc disease), lumbar (Primary Dx) Start: 06-27-2023 ambulatory [facility] Start: 06-26-2023 End: 06-26-2023 ambulatory Remy Lorrie Givens Facility:[facility] Start: 06-26-2023 End: 06-26-2023 Admission to same day surgery center MD Erasto Burroughs Work Phone: [facility] Work Phone: Start: 06-26-2023 End: 06-26-2023 ambulatory MD Erasto Burroughs Work Phone: [facility] Work Phone: Start: 06-14-2023 End: 06-14-2023 ambulatory [facility] Not Available Start: 06-05-2023 [facility] Start: 06-05-2023 Evaluation and management of inpatient [facility] Start: 06-05-2023 Evaluation and management of inpatient [facility] Start: 06-04-2023 End: 06-06-2023 Evaluation and management of inpatient AVINASH SERRANO [facility] Start: 05-15-2023 ambulatory Iman Jeter Facility:[facility] Start: 10-31-2022 End: 11-01-[address] ERASTO BURROUGHS Facility:[facility] Start: 10-10-2022 End: 10-11-[address] ERASTO BURROUGHS Facility:[facility] Start: 05-01-2022 End: 05-02-[address] ERASTO BURROUGHS Facility:[facility] Start: 05-01-[address] ERASTO BURROUGHS Facil ity:[facility] Start: 04-25-2022 End: 04-26-[address] ERASTO BURROUGHS Facility:[facility] Start: 04-04-2022 Encounter for genera l adult medical examination without abnormal findings DR ERASTO BURROUGHS [facility] Start: 03-30-[address] ERASTO BURROUGHS Facil ity:[facility] Start: 03-29-2022 Encounter for genera l adult medical examination without abnormal findings DR ERASTO BURROUGHS [facility] Start: 03-28-2022 End: 03-30-2022 Evaluation and management of inpatient DR ERASTO BURROUGHS Facility:[facility] Start: 03-28-2022 End: 03-29-[address] ERASTO BURROUGHS Facility:[facility] Start: 03-28-2022 End: 03-29-2022 Encounter for general adult medical examination without abnormal findings DR ERSATO BURROUGHS Facility:[facility] Start: 03-08-2022 End: 03-15-2022 Evaluation and management of inpatient IMAN WILLIS Facility:[facility] Start: 03-06-2022 End: 03-08-2022 Evaluation and management of inpatient DR ERASTO BURROUGHS Facility:[facility] Start: 12-22-2021 End: 12-23-[address] ERASTO BURROUGHS Facility:[facility] Start: 12-14-2021 End: 12-14-[address] ERASTO BURROUGHS Facility:[facility] Start: 12-12-2021 End: 12-13-[address] ERASTO BURROUGHS Facility:[facility] Procedures Date Procedure Procedure Detail Performing Clinician Start: 06-26-2023 Esophagogastroduodenoscopy MD Erasto rowland Work Phone: Start: 03-29-2022 Change Drainage Device [...] Vein, Percutaneous Approach DR ERASTO BURROUGHS Start: 12-10-2017 Colonoscopy Erasto Burroughs MD Work Phone: Plan of Treatment Date Care Activity Detail Author Start: 12-11-2027 Screening for malign ant neoplasm of colon [facility] Start: 04-15-2026 Glaucoma screening Diabetes: R etinopathy Screening [facility] Start: 09-08-2024 Hemoglobin A1c measurement Diabetes: Hemoglobin A1C [facility] Start: 06-06-2024 Urine screening for protein Diabetes: Urine Protein Screening [facility] Start: 05-27-2024 End: 05-27-2024 Patient encounter procedure 05/27/2024 1:30 PM EST Office Visit [facility] [address] [place] [phone] Erasto Burroughs MD [address] [place] [phone] [facility] Start: 03-09-2024 Influenza vaccination Influenza Vacc ine (#1) [facility] Start: 09-05-2023 Hemoglobin A1c measurement Diabetes: Hemoglobin A1C [facility] Start: 08-27-2023 End: 08-27-2023 Patient encounter procedure 08/27/2023 2:30 PM EST Office Visit [facility] [address] [place] [phone] Erasto Burroughs MD [address] [place] [phone] [facility] Start: 06-26-2023 [facility] Start: 03-09-2023 Influenza vaccination Influenza Vacc ine (#1) [facility] Start: 1997 Screening for malign ant neoplasm of breast Mammogram [facility] Start: 1976 Urine screening for protein Diabetes: Urine Protein Screening [facility] Start: 1967 Glaucoma screening Diabetes: R etinopathy Screening [facility] Start: 1957 Screening for malign ant neoplasm of colon [facility] Patient Education Esophageal Dilation [facility] Work Phone: Payers Date Payer Category Payer Medicare [id number] 2023 Self-pay [id number] 2022 Private Health Insurance [facility] [id number] 2022 Unknown [employer] [id number] 2022-Present [phone] [address] [address] [place] [address] [id number] 2013 Medicare [id number]. [id number] 1959 Medicare [id number] 1959 Unknown [id number] 1959 Unknown [id number] 1957 Unknown [id number] .840.1.228497.3.579. 2.647 1957 Unknown [id number] .16.840.1.220978.3.579. 2.593 1957 Unknown [id number] 2.16.840.1.645719.3.579. 2.593 1957 Unknown [id number] .16.840.1.651679.3.579. 2.593 1957 Unknown [id number] 2.16.840.1.460913.3.579. 2.593 1957 Unknown [id number] 2.16.840.1.609501.3.579. 2.593 1957 Unknown [id number] 2.16.840.1.190556.3.579. 2.593 1957 Unknown [id number] 2.16.840.1.638548.3.579. 2.593 1957 Unknown [id number] 2.16.840.1.612569.3.579. 2.59 1957 Unknown [id number] 2.16.840.1.721088.3.579. 2.59 1957 Unknown [id number] 2.16.840.1.646291.3.579. 2.593 1957 Unknown [id number] 2.16.840.1.345855.3.579. 2.59 1957 Unknown [id number] 2.16.840.1.670393.3.579. 2.59 1957 Unknown [id number] 2.16.840.1.039247.3.579. 2.593 1957 Unknown [id number] 2.16.840.1.641547.3.579. 2.1259 1957 Unknown [id number] 2.16.840.1.264438.3.579. 2.1259 1957 Unknown [id number] 2.16.840.1.645265.3.579. 2.727 1957 Unknown [id number] 2.16.840.1.242509.3.579. 2.727 1957 Unknown [id number] 2.16.840.1.483329.3.579. 2.727 1957 Unknown [id number] 2.16.840.1.426668.3.579. 2.72 Unknown [id number] 2.16.840.1.235929.3.579. 2.531 Social History Date Type Detail Facility Start: 06-14-2023 End: 06-26-2023 Tobacco smoking status NHIS Ex-smoker (finding) [facility] Start: 1955 Sex Assigned At Female [facility] Start: 03-06-1982 End: 03-06-2022 History of tobacco use Current smoker [facility] Start: 03-06-1982 End: 03-06-2022 History of tobacco use Cigarette Smoker [facility] Start: 06-14-2023 End: 02-21-2024 Cigarettes smoked current (pack per day) - Reported 2 [facility] Start: 06-14-2023 Tobacco use and exposure Smokeless tobacco non-user [facility] Start: 06-14-2023 End: 02-21-2024 Alcohol intake Ex-drinker (finding) [facility] Start: 06-14-2023 End: 02-21-2024 Tobacco use panel [facility] Start: 06-14-2023 Alcohol Comment caffine-2 cups daily [facility] Start: 1955 Sex Assigned At Not on file N [facility] Goals Date Patient Goal Desired Activity /State Clinical Notes 03-09-2022 to 05-12-2024 Note Date & Type Note Facility 05-12-2024 Note Patient Education Urology Urethral Dilation Urethral dilation is a procedure to stretch open (dilate) the urethra. The urethra is the tube that drains pee (urine) from the bladder out of the body. In females, the urethra opens above the vaginal opening. In males, the urethra opens at the tip of the penis. Urethral dilation is usually done to treat narrowing of the urethra (urethral stricture), which can make it difficult to pee (urinate). Urethral strictures can be caused by scar tissue, infection, injury, or surgery. Urethral dilation widens the urethra so that you can pee normally. Urethral dilation is done through the opening of the urethra. There are no incisions made during the procedure. Tell a health care provider about: ??? Any allergies you have. ??? All medicines you are taking, including vitamins, herbs, eye drops, creams, and rskn-xjt-jqabmlr medicines. ??? Any problems you or family members have had with anesthesia. ??? Any bleeding problems you have. ??? Any surgeries you have had. ??? Any medical conditions you have. ??? Whether you are or may be . What are the risks? Your health care provider will talk with you about risks. These may include: ??? Bleeding. ??? Infection. ??? A return of urethral stricture, which requires repeating the dilation procedure or more surgery. ??? Damage to the urethra, which may require reconstructive surgery. ??? Allergic reactions to medicines. What happens before the procedure? Medicines Ask your provider about: ??? Changing or stopping your regular medicines. These include any diabetes medicines or blood thinners you take. ??? Taking medicines such as aspirin and ibuprofen. These medicines can thin your blood. Do not take them unless your provider tells you to. ??? Taking qbdx-yux-zjankxz medicines, vitamins, herbs, and supplements. General instructions ??? Follow instructions from your provider about what you may eat and drink. ??? If you will be going home right after the procedure, plan to have a responsible adult: ? Take you home from the hospital or clinic. You will not be allowed to drive. ? Care for you for the time you are told. ??? Ask your provider: ? How your surgery site will be marked. ? What steps will be taken to help prevent infection. These steps may include: ? Removing hair at the surgery site. ? Washing skin with a soap that kills germs. ? Taking antibiotics. What happens during the procedure? An IV may be inserted into one of your veins. ??? You may be given: ? A local anesthetic to numb your urethral opening. This will be applied as a gel that will also lubricate the opening of the urethra. ? A sedative. This helps you relax. ? Anesthesia. This keeps you from feeling pain. It will make you fall asleep for surgery. ??? A thin tube with a light and camera on the end (cystoscope) will be inserted into your urethra. ??? Your urethra will be rinsed (irrigated) with a germ-free (sterile) water solution. ??? Narrow parts of your urethra will be stretched open using a dilator tool. Your surgeon will start with a very thin dilator, then use wider dilators as needed. ??? A thin tube with an inflatable balloon on the tip may be inserted into your urethra. The balloon may be inflated to help stretch your urethra open. The balloon may be coated with a medicine to help the urethra stay open longer. ??? Your urethra will be irrigated. ??? A catheter will be inserted into your bladder at the end of the procedure. The procedure may vary among providers and hospitals. What happens after the procedure? After the procedure, it is common to have: ? Burning pain when peeing. ? Blood in your pee. ? A need to pee frequently. ??? You will be asked to pee before you leave the hospital or clinic. ??? Your pee flow should improve within a few days. ??? You may have a catheter in your bladder for 2?3 days following your procedure. Follow these instructions at home: Medicines ??? Take bhre-kri-xadgnel and prescription medicines only as told by your provider. ??? If you were prescribed antibiotics, take them as told by your provider. Do not stop using the antibiotic even if you start to feel better. ??? Ask your provider if the medicine prescribed to you: ? Requires you to avoid driving or using machinery. ? Can cause constipation. You may need to take these actions to prevent or treat constipation: ? Take vbii-doj-rkxmxsk or prescription medicines. ? Eat foods that are high in fiber, such as beans, whole grains, and fresh fruits and vegetables. ? Limit foods that are high in fat and processed sugars, such as fried or sweet foods. General instructions ??? If you were given a sedative during the procedure, it can affect you for several hours. Do not drive or operate machinery until your provider says that it is safe. ??? If you were sent home with a soft tube (catheter) (more content not included)... [facility] 01-07-2024 Note [place] Cardiology - [facility] Subjective Lise Canales is a 68 y.o. year old female patient being seen for 6 mo follow up CAD and hypertension. She was admitted to [facility] 2 weeks ago for severe sepsis and pneumonia. Denies chest pain. Says she's been getting dizzy when she stands up. Patient Active Problem List Diagnosis Abdominal pain Altered mental status Angina pectoris ([facility]) Benign essential hypertension Candidiasis of mouth COPD [...] Prior additional history: She was admitted to [facility] in 10/2017 with sudden onset symptoms [...] smoking. On 06/04/2023 she was admitted to [facility] transferred from the [facility] due to pneumonia. In that setting she was found to have minimally elevated troponin. Her echocardiogram and EKG were nonrevealing. She was discharged on medical therapy. In December 2023 she was admitted to the [facility] with pneumonia and sepsis. In that setting [...] respiratory distress. Breath (more content not included)... [facility] 06-27-2023 Note [facility] - [facility] Subjective Lise Zamudiot is a 68 y.o. year old female patient being seen for follow up [facility] for NSTEMI. 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 On 06/04/2023 she was admitted to [facility] transferred from the [facility] due to pneumonia. In that setting she [...] Judgment normal. All (more content not included)... [facility] 06-26-2023 Procedure note [facility] 06-06-2023 Note Hospital Medicine Discharge Summary Final Discharge Diagnosis: Community acquired pneumonia of right lower lobe of lung Admission Diagnosis: NSTEMI (non-ST elevated myocardial infarction) (CMS/HCC) [I21.4] Hospital course: 68 years old female lady with a medical history of hypertension, hyperlipidemia, gastroesophageal reflux disease, carotid disease, fibromyalgia, arthritis, polymyalgia rheumatica, COPD, temporal arteritis, and psoriasis. Came into the [facility] ER as a transfer from [facility] for concern of chest pain and non-STEMI. [...] Center 06/27/2023 3:45 PM Jer Neff MD [facility] Your medication list START taking these [...] HYDROcodone-acetaminophen 5-325 mg tablet Commonly known as: Gibson melatonin 5 mg tablet metoprolol tartrate 25 [...] Your Medications These medications were sent to [id number] AT [address] [address] cefdinir 300 mg capsule doxycycline 100 mg capsule Lise is allergic to azithromycin and latex. Disposition: Home-Health Care [facility] Discharge Condition: Stable Code Status: Prior [...] 7 days Lab Units 06/06/23 0547 06/05/23 030 SODIUM mmol/L 130* 133* POTASSIUM mmol/L [...] rhythm. Lungs: C (more content not included)... 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 Yes [...] Yes Type of Residence/Post Acute Needs Private residence;[facility] Is PT/OT appropriate? No Is PT/OT ordered? No Is SW consult appropriate? Yes Is SW consult ordered? Yes Do you understand the benefits of MyChart? Yes Were you able to send link and activate MyChart? MyChart already active [facility] 06-05-2023 Note . Hospital Medicine History and Physical 06/05/2023 1:22 AM THE HOSPITALIST TEAM PREFERS TO USE [employer] CH[employer] FOR COMMUNICATION 7AM-7PM. IF I DO NOT RESPOND WITHIN 15 MINUTES, PLEASE PAGE ME/CALL THROUGH THE NASCAR DRIVER. FROM 7PM-7AM, PLEASE PAGE [phone](COVR) Chief Complaint No chief complaint on file. History of Present Illness Lise Canales is an 68 y.o. female who came from home with NSTEMi. This is a 68 years old female lady with a medical history of hypertension, hyperlipidemia, gastroesophageal reflux disease, carotid disease, fibromyalgia, arthritis, polymyalgia rheumatica, COPD, temporal arteritis, and psoriasis. Came into the [facility] ER as a transfer from [facility] for concern of chest pain and non-STEMI. [...] Date Noted NSTEMI (non-ST elevated myocardial infarction) ([facility]) 06/05/2023 Acute on chronic respiratory failure with hypoxia ([facility]) 04/01/2022 Anemia, unspecified 04/01/2022 Recurrent spontaneous pneumothorax 03/30/2022 Giant cell arteritis with polymyalgia rheumatica ([facility]) 10/11/2021 Pneumothorax on left 08/02/2016 Coronary atherosclerosis 06/15/2014 Dyslipidemia 06/15/2014 Status post percutaneous transluminal coronary angioplasty 06/15/2014 Angina pectoris ([facility]) 05/04/2014 Electrocardiogram abnormal 05/04/2014 Abdominal pain 04/24/2014 Altered mental status 04/24/2014 Benign essential hypertension 04/24/2014 Congestive heart failure ([facility]) 04/24/2014 Dyspnea 04/24/2014 Gastroesophageal reflux disease 04/24/2014 History of psychiatric disorder 04/24/2014 Hyperlipidemia 04/24/2014 Headache 04/24/2014 Raynaud's disease 04/24/2014 Other and unspecified noninfectious gastroenteritis and colitis(558.9) 05/15/2007 Candidiasis of mouth 04/17/2007 COPD (chronic obstructive pulmonary disease) ([facility]) 04/17/2007 Diarrhea 04/17/2007 Loss of weight 04/17/2007 Other psoriasis 04/17/2007 Psoriatic arthropathy ([facility]) 04/17/2007 Other pneumothorax 03/30/2022 [...] over 92 -Scheduled (more content not included)... [facility] 03-15-2022 Note MR#: [id number] I [facility] Pt. Name: Lise Canales Admitted: 03/08/2022 [...] a 66-year-old female, who presented to the [facility] with shortness of breath and fatigue, past [...] The patient was subsequently transferred to for [facility] for further workup, was admitted to step-down [...] Penn MD Date Trans: 03/15/2022 04:48 P/gabriela [id number] cc: Erasto Burroughs M.D. [address] [facility] [address] [facility] 03-13-2022 Note MR#: [id number] I [facility] Pt. Name: Lise Canales Admitted: 03/08/2022 [...] A/Oli Pineda MD Date Trans: 03/13/2022 10:30 Deandre/gabriela [id number] cc: Erasto Burroughs M.D. [address] [facility] [address] [facility] 03-09-2022 Note MR#: [id number] I [facility] Pt. Name: Lise Canales Admitted: 03/05/2020 [...] gastritis, Helicobacter pylori infection, who presented to [facility] Emergency Department complaining of sudden onset of [...] 2 to 4 weeks. Follow up at [facility] on 03/16/2022 at 9:50 a.m. [...] from me. Date Dict: 03/08/2022/03:04 P/Paulette Mccord [facility] Date Trans: 03/09/2022 11:21 A/gabriela [id number] cc: Marti Poole M.D. [address] [facility] [id number] Erasto Burroughs M.D. [address] [facility] [id number] [facility] Evaluation note No assessment inform ation available [facility] Work Phone: Evaluation note Diagnosis DDD (degenerative disc disease), lumbar- Primary Degeneration of lumbar or lumbosacral intervertebral disc documented in this encounter [facility] Diagnosis Hospital discharge follow-up- Primary Other follow-up examination Hyponatremia Hyposmolality and/or hyponatremia Pyelonephritis- Primary Unspecified pyelonephritis Type 2 diabetes mellitus with hyperglycemia, without long-term current use of insulin (CMS/HCC) Essential hypertension, benign (CMS/HCC) Essential hypertension, benign Breast cancer screening by mammogram Chronic obstructive pulmonary disease, unspecified COPD type (CMS/HCC) DDD (degenerative disc disease), lumbar Degeneration of lumbar or lumbosacral intervertebral disc documented in this encounter [facility] Author Remy Givens [facility] June 26, 2023 2:44pm Note Date/Time June 26, 2023 2:44pm [facility] [address] [place] [address] Gastroenterology H&P Signed Patient: Lise Canales MR#: [id number] : 1955 Acct:[id number] Age/Sex: 68 / F Adm Date: 3 Loc: Room: Type: [facility] Attending Dr: Remy Givens MD Copies [...] <Electronically signed by Remy Givens MD> 06/26/23 [address] [facility] Work Phone: Hospital Discharge instructions [...] NOT operate machinery such as power tools, [employer] mowers, Project Manager blowers, sewing machines, etc. for 24 hours. [...] problems. -Follow up with PCP. -Office number [phone].[facility] Work Phone: Summary Purpose Family History No [...] content) DATE CREATED AUTHOR 04/11/2022 [facility] DATE CREATED AUTHOR AUTHOR'S ORGANIZ ATION 11/04/2022 [facility] DATE CREATED AUTHOR AUTHOR'S ORGANIZ ATION 07/10/2023 [facility] DATE CREATED AUTHOR AUTHOR'S ORGANIZ ATION 02/14/2024 [facility] DATE CREATED AUTHOR AUTHOR'S ORGANIZ ATION 02/23/2024 [facility] EPIC DATE CREATED AUTHOR AUTHOR'S ORGANIZ ATION 05/13/2024 [facility] Care Teams (unrecognized sec tion and content) Team Status: Active Member Role Status Dates Erasto Burroughs MD Primary Care Provider Active Team Status: Inactive Member Role Status Dates Erasto Burroughs MD Primary Care Provider Active Remy Givens MD Attending Provider Active Multimedia Artist Relationship Specialty Start Date End Date Erasto Burroughs MD PCP - General Family Medicine 07/09/22 Multimedia Artist Relationship Specialty Start Date End Date Erasto Burroughs MD [address] [place] [address] PCP - General Family Medicine 02/21/24 Reason for Visit (unrecogniz ed section and [...] BE BASED ON THE PRIMARY CLINICAL RECORDS. [facility]. provides no warranty or guarantee of the accuracy or completeness of information in this document.
[2024-06-06] MEDS: METHYLPREDNISOLONE SOD SUCC PF 125 MG/2 ML VIAL IVP (09:59)
[2024-06-06] MEDS: ONDANSETRON PF 4 MG/2 ML VIAL IV (09:59)
[2024-06-06] MEDS: ALBUTEROL SULFATE 2.5 MG/3 ML VIAL NEB IH (10:20)
[2024-06-06 10:29] LABS: Basophils Absolute Auto 0.1 10^3/uL (0.0-0.1); Basophils Percent Auto 0.3 % (0.2-2.0); Eosinophils Absolute Auto 0.2 10^3/uL (0.0-0.7); Eosinophils Percent Auto 1.1 % (0.9-7.0); Hematocrit 46.4 % (36.0-48.0); Hemoglobin 14.8 g/dL (12.0-16.0); Immature Granulocytes Abs Auto 0.09 10^3/uL (0.00-0.03); Immature Granulocytes Pct Auto 0.6 % (0.0-0.5); Lymphocytes Absolute Auto 1.2 10^3/uL (1.2-3.8); Lymphocytes Percent Auto 7.4 % (20.5-60.0); Mean Corpuscular HGB Conc 31.9 g/dL (29.9-35.2); Mean Corpuscular Volume 97.3 fL (81.0-99.0); Mean Platelet Volume 9.9 fL (9.5-13.5); Monocytes Absolute Auto 0.8 10^3/uL (0.3-0.8); Monocytes Percent Auto 5.2 % (1.7-12.0); Neutrophils Absolute Auto 13.5 10^3/uL (1.4-6.5); Neutrophils Percent Auto 85.4 % (43.0-75.0); Platelet Count 285 10^3/uL (150-450); Red Blood Count 4.77 10^6/uL (4.20-5.40); Red Cell Distribution Width 13.1 % (11.0-15.0); White Blood Count 15.9 10^3/uL (4.0-11.0)
[2024-06-06 10:39] LABS: Influenza Virus A Antigen Negative; Influenza Virus B Antigen Negative; Internal Control Within Normal Limits; SARS-CoV-2 Ag NEGATIVE (NEGATIVE)
[2024-06-06 10:54] LABS: Lactate/Lactic Acid 1.9 mmol/L (0.4-2.0)
[2024-06-06 10:56] LABS: Anion Gap 15.8; BUN Creatinine Ratio 16.8; Chloride 103 mmol/L (98-107); Estimated GFR (African America 40 (>=60 mL/min/1.73m^2); Estimated GFR (Non-African Ame 33 (>=60 mL/min/1.73m^2); Glucose 174 mg/dL (74-106); Potassium 3.8 mmol/L (3.5-5.1); Sodium 139 mmol/L (136-145)
[2024-06-06] MEDS: LEVOFLOXACIN IN DEXTROSE 5 % 750 MG/150 ML PREMIX 100 MG IV (10:59)
[2024-06-06] MEDS: 0.9 % SODIUM CHLORIDE 500 ML IV (12:01)
--- OUTSIDE RECORDS SUMMARY | 2024-06-06 12:09 | XMS_ITS | CCD ---
Author Organization [facility] Care Team Providers Care Assembly Line Inspector Name Role Phone BALAJI IMAN Admitting Unavailable [...] MIGUE Wild Consulting Unavailable NADERER, DR ERASTO aCrrera Consulting Unavailable GRECHNY ., GRADY ARANDA Consulting [...] KINSEY ., JUANCARLOS Consulting Unavailable SAMSA ., ISHNA Consulting Unavailable DORIS ., NARCISA Consulting Unavailable [...] Unavailable Erasto Burroughs MD Primary Care Provider [phone] ROSA MARIA, NOORALDIN Referring Unavailable JER NEFF Attending Unavailable JER NEFF Attending Unavailable AIVNASH SERRANO Referring Unavailable JAZMIN EASLEY Admitting Unavailable KONG BEAULIEU Attending Unavailable KONG BEAULIEU Referring Unavailable MERZA, NOORALDIN Referring Unavailable ROSA MARIA, NOORALDIN Referring Unavailable SHAIKH FINN Attending Unavailable ERASTO BURROUGHS Attending Unavailable Erasto Burroughs MD Primary Care Provider [phone] Ihsan BROWN Attending Unavailable Ihsan BROWN Attending Unavailable Ihsan BROWN Attending Unavailable Iman Jeter Attending Unavaila ble Allergies Allergy Classification Reported Allergen(s) Allergy Type Date of Onset Reaction(s) Facility (4 sources) Azithromycin; Translations: [AZITHROMYCIN] Drug Allergy 9 [facility] Repository (5 sources) Latex; Translations: [LATEX] Drug allergy (disorder) 7 [facility] Repository (1 source) Azithromycin Drug Allergy 2 [facility] Repository (1 source) Latex Drug allergy (disorder) 2 [facility] Repository (2 sources) Azithromycin Drug Allergy 3 [facility] (2 sources) Latex Allergy to substance 3 [facility] (1 source) Azithromycin; Translations: [Zithromax] Drug Allergy [facility] Repository Medications Current Medications Medication [...] hyperglycemia, without long-term current use of insulin ([facility]) TAKE 1 TABLET(5 MG) BY MOUTH DAILY [...] disease (5 sources) 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; Translations: [Coronary [...] 12-22-2021 Chronic Other aftercare (5 sources) 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 therapy; Translations: [OTH 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 CONTROL 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 CURRENT DRUG THERAPY] Onset: 05-01-2022 Episodic Other [...] source) [facility] (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; Translations: [LONGTERM CURRENT USE OF ASPIRIN] Onset: 05-01-2022 Episodic Other aftercare (1 source) [facility] (current) use of antithrombotics/ant iplatelets; Translations: [LONGTERM ANTITHROMBOT/ANTIPL ATLETS] Onset: 03-16-2022 Episodic Other aftercare [...] BROWN Ihsan SALDIVAR Where: [facility] [address] [place] [address]- You Need to Schedule the Following Appointments Follow Up with KEVIN SALDIVAR, Ihsan Wild, [place] When: Where: [facility] [address], [facility] [place] [address]- Medications What How Much When Instructions New cephalexin (Keflex 500 mg Cap) 1 Capsules By Mouth Every 12 hours Duration: 10 Days Pickup at [facility] #[id number] Changed estradiol topical (estradiol 0.1 mg/ g Vag Crm) 1 Gram Vaginal As Directed Plunge 1 gm vaginally then apply excess cream around the urethra once a week at night. Pickup at [facility] #[id number] Unchanged albuterol (Albuterol (Eqv-Proventil HFA) 90 mcg/ [...] physician if questions or concerns Pharmacy Information [facility] #[id number]: [address] [place], [place] [phone] Allergies Latex (RASH) Zithromax (HIVES) Problems Ongoing [...] The urethra (more content not included)... Normal [facility] Urology Office/Clinic Noteon 05-12-2024 Urology Office/Clinic [...] x 10 days. SEs discussed. Sent to [facility]. unable to send urine for culture today due to no transport. -Restart Estradiol cream. Use 1x/week. Notify office if experiencing SEs. Sent to [facility]. 3. Asymptomatic microscopic hematuria (R31.21: Asymptomatic microscopic hematuria) Chronic. [2] Follow-up With When Contact Information KEVIN SALDIVAR, Ihsan Wild, URL [facility] [address] , [place] [address]- Additional Instructions: 6 mos for UD Patient [...] refills GUAIFE (more content not included)... Normal [facility] Comment on above: Result Comment: Elec tronically Signed By: Ihsan BROWN MD\.br\Date and Time Signed: 05/12/24 17:00 EST\.br\Electronically Co-Signed By: Katarina Bose\.br\Date and Time Co-Signed: 05/12/24 16:58 EST 3602-12-2024 36 Tried to contact patient again. She has no VM. [facility] 36on 01-29-2024 36 Regarding lab result s from 01/07/2024: MD Kika Becerra MA Blood work is ok, follow up as planned in 6 months. Tried to contact patient but no VM. Will try again tomorrow. Normal [facility] Office Visiton 01-07-2024 Follow-up visit [id number] Covert,Lise Easton 1955 F Date Provider Department Center 01/07/2024 JER LARRY MARC Kirk Family History Problem Relation Age of Onset Stroke Father Stroke Father's Sister Coronary artery disease Paternal Grandmother Family Status - Relation Status Age at Father Father's Sister Paternal Grandmother Level of Service:09428 [facility] OFFICE/OUTPATIENT ESTABLISHED MOD MDM [address] [facility] Consent for Procedure/Surger yon 11-12-2023 Consent for Procedure/Surgery [id number] [facility] Patient Educationon 11-09-19 24 Patient Education [...] including vitamins, herbs, eye drops, creams, and mzwa-vmr-pfehopj medicines. ? Any problems you or family [...] tells you to take them. ? Taking huds-dsf-gwaryft medicines, vitamins, herbs, and supplements. General instructions [...] these instructions at home: Medicines ? Take auyh-szg-buklkgh and prescription medicines only as told by [...] to prevent or treat constipation: ? Take sgyc-ugz-aecurcf or prescription medicines. ? Eat foods that [...] (more content not included)... Normal [facility] Urology Office/Clinic Noteon 11-09-2023 Urology [...] Tight The Urethra was dilated to: 20-32 Faroese with sounds. Specimens Removed: None Postoperative Information [...] hematuria. Follow-up With When Contact Information KEVIN ASLDIVAR, Ihsan Wild, URL [address] [id number]- Additional Instructions: 6 mos w/ IO UD [...] (more content not included)... Normal [facility] Comment on above: Result Comment: Elec tronically Signed By: Ihsan BROWN MD\.br\Date and Time Signed: 11/09/23 12:24 EDT\.br\Electronically Co-Signed By: Amanda Camara.fritz\Date and Time Co-Signed: 11/09/23 12:14 EDT 36on 09-03-2023 36 Home health informed and script sent Normal [facility] Orders Onlyon 08-30-2023 Orders Only [id number] Covert,Lise Easton 1955 F Date Provider Department Center 08/30/2023 [id number], RUSH [facility] Family History Problem Relation Age of Onset Stroke Father Stroke Father's Sister Coronary artery disease Paternal Grandmother Family Status - Relation Status Age at Father Father's Sister Paternal Grandmother Normal [facility] Office Visiton 06-27-2023 Follow-up visit [id number] LizztLise 1955 F Date Provider Department Center 06/27/2023 JER LARRY MARC [facility] Family History Problem Relation Age of Onset Stroke Father Stroke Father's Sister Coronary artery disease Paternal Grandmother Family Status - Relation Status Age at Father Father's Sister Paternal Grandmother Level of Service:20319 [place] OFFICE/OUTPATIENT ESTABLISHED LOW MDM [address] [facility] 30on 06-06-2023 30 The patient is [...] symptoms for stability, deterioration, or improvement Normal [facility] BASIC METABOLIC PANELon 11- Anion gap [Moles/Vol] 9 mmol/L Normal 7-20 [facility] Comment on above: Performed By: #### L [id number] #### [facility] ([facility]) [address] [place] [address] Calcium [Mass/Vol] 8.3 mg/dL Low 8.6-10.3 [facility] Comment on above: Performed By: #### L [id number] #### [facility] [address] [place] [address] Chloride [Moles/Vol] 99 mmol/L Normal 98-107 [facility] Comment on above: Performed By: #### L [id number] #### [facility] ([facility]) [address] [place] [address] CO2 [Moles/Vol] 26 mmol/L Normal 21-31 [facility] Comment on above: Performed By: #### L [id number] #### [facility] ([facility]) [address] [place] [address] Creatinine [Mass/Vol] 0.72 mg/dL Normal 0.60-1.20 [facility] Comment on above: Performed By: #### L [id number] #### [facility] ([facility]) [address] [place] [address] GLOMERULAR FILTRATION RATE ML/MIN/1.73 SQ M.PREDICTED 92.2 mL/min/1.73m*2 Normal >60.0 [facility] Comment on above: Result Comment: [facility]???s estimated glomerular filtration rate (eGFR) will [...] individuals. Performed By: #### L [id number] #### [facility] ([facility] [address] [place] [address] Glucose [Mass/Vol] 107 mg/dL High 70-100 [facility] Comment on above: Performed By: #### L [id number] #### [facility] ([facility] [address] [place] [address] Potassium [Moles/Vol] 3.9 mmol/L Normal 3.5-5.1 [facility] Comment on above: Performed By: #### L [id number] #### [facility] ([facility]) [address] [place] [address] Sodium [Moles/Vol] 130 mmol/L Low 136-145 [facility] Comment on above: Performed By: #### L [id number] #### [facility] ([facility] [address] [place] [address] Urea nitrogen [Mass/Vol] 12 mg/dL Normal 7-25 [facility] Comment on above: Performed By: #### L [id number] #### [facility] [address] [place] [address] UREA NITROGEN/CREATININE (MASS RATIO) IN SER/PLAS 16.[address] [facility] Comment on above: Performed By: #### L [id number] #### [facility] ([facility] [address] [place] [address] CBCon 06-06-2023 Erythrocyte distribution width (RBC) [Ratio] 13.4 % Normal 11.5-15.0 [facility] Comment on above: Performed By: #### L [id number] #### [facility] ([facility] [address] [place] [address] ERYTHROCYTE MEAN CORPUSCULAR HEMOGLOBIN CONCENTRATION (G/DL) BY AUTOMATED 33.4 g/dL Normal 32.0-35.0 [facility] Comment on above: Performed By: #### L [id number] #### [facility] ([facility]) [address] [place] [address] Hematocrit (Bld) [Volume fraction] 28.7 % Low 36.0-48.0 [facility] Comment on above: Performed By: #### L [id number] #### [facility] ([facility]) [address] [place] [address] Hemoglobin (Bld) [Mass/Vol] 9.6 g/dL Low 12.0-15.0 [facility] Comment on above: Performed By: #### L [id number] #### [facility] ([facility]) [address] [place] [address] MCH (RBC) [Entitic mass] 28.2 pg Normal 27.0-33.0 [facility] Comment on above: Performed By: #### L [id number] #### [facility] ([facility]) [address] [place] [address] MCV (RBC) [Entitic vol] 84.4 fL Normal 82.0-98.0 [facility] Comment on above: Performed By: #### L [id number] #### [facility] ([facility]) [address] [place] [address] PLATELETS (10*3/UL) IN BLOOD AUTOMATED COUNT 522 10*3/uL High 150-400 [facility] Comment on above: Performed By: #### L [id number] #### [facility] ([facility]) [address] [place] [address] RBC (Bld) [#/Vol] 3.40 10*6/uL Low 3.80-5.00 [facility] Comment on above: Performed By: #### L [id number] #### [facility] ([facility]) [address] [place] [address] WBC (Bld) [#/Vol] 10.31 10*3/uL Normal 4.00-10.60 [facility] Comment on above: Performed By: #### L [id number] #### [facility] ([facility] [address] [place] [address] Letter (Out)on 06-06-2023 Letter (Out) [id number] Covert,Lise Easton 1955 F Date Provider Department Center 06/06/2023 [id number], GENERIC PRO*INIT None Family History Problem Relation Age of Onset Stroke Father Stroke Father's Sister Coronary artery disease Paternal Grandmother Family Status - Relation Status Age at Father Father's Sister Paternal Grandmother Normal [facility] MAGNESIUMon 06-06-2023 Magnesium [Mass/Vol] 1.9 mg/dL Normal 1.9-2.7 [facility] Comment on above: Performed By: #### L [id number] #### [facility] ([facility]) [address] [place] [address] 30on 06-05-2023 30 The patient is Moderately Stable - Low risk of patient condition declining or worsening The patient's goals for the shift include comfort The clinical goals for the shift include stable vitals Normal [facility] 30 Daily Case Managemen t Update Multidisciplinary rounds have been completed. Barriers to Discharge: Transfer from [facility] for chest pain and NSTEMI. TTE ordered. Pending cardio rec. Trop was .06 down to .04. +UTI and Pneumonia. Continue IV Rocephin. Urine and blood cultures pending. Patient is [facility] Diet: Dietary Orders (From [...] name here: DANIEL GUERIN 06/05/[address] [facility] 30 The patient is Moderately Unstable - Medium risk of patient condition declining or worsening The patient's goals for the shift include comfort The clinical goals for the shift include vss Over the shift, the patient did not make progress toward the following goals. Barriers to progression include . Recommendations to address these barriers include . Normal [facility] 30 The patient is [...] injury: Assess patient frequently for physical needs Mobile fall precautions as indicated by assessment Identify [...] and prevent overall improvement and discharge Normal [facility] ANTI-XA (HEPARIN LEVEL)on HEPARIN UNFRACTIONATED (U/ML) IN PPP BY CHROMOGENIC METHOD <0.10 Invalid Interpretation Code 0.3-0.7 [facility] Comment on above: Order Comment: Check anti-Xa level every 6 hours while on heparin infusion, or per protocol. Result Comment: Lenka roxaban and Apixaban will interfere with the anti Xa assay used to monitor UFH and LMWH. Performed By: #### L [id number] #### [facility] ([facility]) [address] [place] [address] HEPARIN UNFRACTIONATED (U/ML) IN PPP BY CHROMOGENIC METHOD <0.10 Invalid Interpretation Code 0.3-0.7 [facility] Comment on above: Order Comment: Check anti-Xa level every 6 hours while on heparin infusion, or per protocol. Result Comment: Lenka roxaban and Apixaban will interfere with the anti Xa assay used to monitor UFH and LMWH. Performed By: #### L [id number] #### [facility] ([facility]) [address] [place] [address] APTTon 06-05-2023 ACTIVATED PARTIAL THROMBOPLASTIN TIME IN PPP BY COAGULATION ASSAY 38.8 Seconds High 25.0-35.0 [facility] Comment on above: Result Comment: Clin ical significance of the APTT is questionable in the presence of heparin. Performed By: #### L [id number] #### [facility] ([facility]) [address] [place] [address] B-TYPE NATRIURETIC PEPTIDEon 06-05-2023 Natriuretic peptide B (Bld) [Mass/Vol] 136 pg/mL High 0-100 [facility] Comment on above: Performed By: #### L [id number] #### [facility] ([facility]) [address] [place] [address] BLOOD CULTUREon 06-05-2023 Bacteria identified Cx Nom (Bld) No growth at 5 days Normal [facility] Comment on above: Performed By: #### L [id number] ####[facility] ([facility])[address] [place] [address] Order Comment: From a different site than #1. CBC WITH AUTO DIFFERENTIALon 06-05-2023 Basophils (Bld) [#/Vol] 0.05 10*3/uL Normal 0.00-0.20 [facility] Comment on above: Performed By: #### L [id number] #### [facility] ([facility]) [address] [place] [address] Basophils/100 WBC (Bld) 0.3 % Normal 0.0-1.0 [facility] Comment on above: Performed By: #### L [id number] #### [facility] ([facility]) [address] [place] [address] Eosinophils (Bld) [#/Vol] 0.02 10*3/uL Normal 0.00-0.50 [facility] Comment on above: Performed By: #### L [id number] #### [facility] ([facility]) [address] [place] [address] Eosinophils/100 WBC (Bld) 0.1 % Normal 0.0-6.0 [facility] Comment on above: Performed By: #### L [id number] #### [facility] ([facility]) [address] [place] [address] Erythrocyte distribution width (RBC) [Ratio] 13.3 % Normal 11.5-15.0 [facility] Comment on above: Performed By: #### L [id number] #### [facility] [address] [place] [address] ERYTHROCYTE MEAN CORPUSCULAR HEMOGLOBIN CONCENTRATION (G/DL) BY AUTOMATED 32.4 g/dL Normal 32.0-35.0 [facility] Comment on above: Performed By: #### L [id number] #### [facility] [address] [place] [address] Hematocrit (Bld) [Volume fraction] 35.8 % Low 36.0-48.0 [facility] Comment on above: Performed By: #### L [id number] #### [facility] ([facility]) [address] [place] [address] Hemoglobin (Bld) [Mass/Vol] 11.6 g/dL Low 12.0-15.0 [facility] Comment on above: Performed By: #### L [id number] #### [facility] [address] [facility] [place] [address] Immature granulocytes (Bld) [#/Vol] 0.17 10*3/uL Normal 0.00-0.20 [facility] Comment on above: Performed By: #### L [id number] #### [facility] ([facility]) [address] [place] [address] Immature granulocytes/100 WBC (Bld) 1.0 % Normal 0.0-1.0 [facility] Comment on above: Performed By: #### L [id number] #### [facility] ([facility]) [address] [place] [address] Lymphocytes (Bld) [#/Vol] 0.80 10*3/uL Low 1.20-4.00 [facility] Comment on above: Performed By: #### L [id number] #### [facility] ([facility]) [address] [place] [address] Lymphocytes/100 WBC (Bld) 4.6 % Low 20.0-45.0 [facility] Comment on above: Performed By: #### L [id number] #### [facility] ([facility]) [address] [place] [address] MCH (RBC) [Entitic mass] 28.3 pg Normal 27.0-33.0 [facility] Comment on above: Performed By: #### L [id number] #### [facility] ([facility]) [address] [place] [address] MCV (RBC) [Entitic vol] 87.3 fL Normal 82.0-98.0 [facility] Comment on above: Performed By: #### L [id number] #### [facility] ([facility]) [address] [place] [address] Monocytes (Bld) [#/Vol] 0.78 10*3/uL Normal 0.10-1.00 [facility] Comment on above: Performed By: #### L [id number] #### [facility] ([facility]) [address] [place] [address] Monocytes/100 WBC (Bld) 4.5 % Low 5.0-12.0 [facility] Comment on above: Performed By: #### L [id number] #### [facility] ([facility]) [address] [place] [address] Neutrophils (Bld) [#/Vol] 15.46 10*3/uL High 1.60-7.60 [facility] Comment on above: Performed By: #### L [id number] #### [facility] ([facility]) [address] [place] [address] Neutrophils/100 WBC (Bld) 89.5 % High 40.0-72.0 [facility] Comment on above: Performed By: #### L [id number] #### [facility] [address] [place] [address] NRBC (PER 100 WBCS) BY AUTOMATED COUNT 0.0 % Normal 0 [facility] Comment on above: Performed By: #### L [id number] #### [facility] [address] [place] [address] PLATELETS (10*3/UL) IN BLOOD AUTOMATED COUNT 517 10*3/uL High 150-400 [facility] Comment on above: Performed By: #### L [id number] #### [facility] ([facility]) [address] [place] [address] RBC (Bld) [#/Vol] 4.10 10*6/uL Normal 3.80-5.00 [facility] Comment on above: Performed By: #### L [id number] #### [facility] ([facility]) [address] [place] [address] WBC (Bld) [#/Vol] 17.28 10*3/uL High 4.00-10.60 [facility] Comment on above: Performed By: #### L [id number] #### [facility] ([facility]) [address] [place] [address] COMPREHENSIVE METABOLIC PANE [place] 06-05-2023 ALANINE AMINOTRANSFERASE (SGPT) (U/L) IN SER/PLAS <3 Low 7-52 [facility] Comment on above: Performed By: #### L [id number] #### [facility] [address] [place] [address] Albumin [Mass/Vol] 3.1 g/dL Low 3.5-5.7 [facility] Comment on above: Performed By: #### L [id number] #### [facility] ([facility]) [address] [place] [address] ALP [Catalytic activity/Vol] 83 U/L Normal 34-104 [facility] Comment on above: Performed By: #### L [id number] #### [facility] ([facility]) [address] [place] [address] Anion gap [Moles/Vol] 13 mmol/L Normal 7-20 [facility] Comment on above: Performed By: #### L [id number] #### [facility] [address] [place] [address] AST [Catalytic activity/Vol] 14 U/L Normal 13-39 [facility] Comment on above: Performed By: #### L [id number] #### [facility] [address] [place] [address] Bilirubin [Mass/Vol] 0.3 mg/dL Normal 0.3-1.0 [facility] Comment on above: Performed By: #### L [id number] #### [facility] [facility] [address] [place] [address] Calcium [Mass/Vol] 8.9 mg/dL Normal 8.6-10.3 [facility] Comment on above: Performed By: #### L [id number] #### [facility] ([facility] [address] [place] [address] Chloride [Moles/Vol] 98 mmol/L Normal 98-107 [facility] Comment on above: Performed By: #### L [id number] #### [facility] ([facility] [address] [place] [address] CO2 [Moles/Vol] 25 mmol/L Normal 21-31 [facility] Comment on above: Performed By: #### L [id number] #### [facility] ([facility]) [address] [place] [address] Creatinine [Mass/Vol] 0.96 mg/dL Normal 0.60-1.20 [facility] Comment on above: Performed By: #### L [id number] #### [facility] ([facility]) [address] [place] [address] GLOMERULAR FILTRATION RATE ML/MIN/1.73 SQ M.PREDICTED 65.3 mL/min/1.73m*2 Normal >60.0 [facility] Comment on above: Result Comment: [facility]???s estimated glomerular filtration rate (eGFR) will [...] individuals. Performed By: #### L [id number] #### [facility] ([facility] [address] [place] [address] Glucose [Mass/Vol] 93 mg/dL Normal 70-100 [facility] Comment on above: Performed By: #### L [id number] #### [facility] ([facility]) [address] [place] [address] Potassium [Moles/Vol] 3.3 mmol/L Low 3.5-5.1 [facility] Comment on above: Performed By: #### L [id number] #### [facility] ([facility]) [address] [place] [address] Protein [Mass/Vol] 5.7 g/dL Low 6.0-8.3 [facility] Comment on above: Performed By: #### L [id number] #### [facility] ([facility]) [address] [place] [address] Sodium [Moles/Vol] 133 mmol/L Low 136-145 [facility] Comment on above: Performed By: #### L [id number] #### [facility] ([facility]) [address] [place] [address] Urea nitrogen [Mass/Vol] 12 mg/dL Normal 7-25 [facility] Comment on above: Performed By: #### L [id number] #### [facility] ([facility]) [address] [place] [address] UREA NITROGEN/CREATININE (MASS RATIO) IN SER/PLAS 12.[address] [facility] Comment on above: Performed By: #### L [id number] #### [facility] ([facility]) [address] [place] [address] CONSULTon 06-05-2023 CONSULT - Attestation signed by [...] Nausea / Vomiting and Urinary symptoms to [facility], there she was found to have UTI, labs showed WBC of 17 and she was started on IV antibiotics, work up also showed high sensitive troponin of 62, She doesn't report any chest pain, or discomfort. She was started on heparin drip and was transferred here to [facility]. Today she reports no chest pain [...] bilaterally. NEURO: (more content not included)... Normal [facility] ETHANOLon 06-05-2023 ETHANOL (MG/DL) IN SER/PLAS <[address] [facility] Comment on above: Performed By: #### L [id number] #### [facility] ([facility]) [address] [place] [address] ETHANOL CALCULATED (%) Normal [facility] Comment on above: Performed By: #### L [id number] #### [facility] ([facility]) [address] [place] [address] HEMOGLOBIN A1Con 06-05-2023 Glucose [Mass/Vol] 160 mg/dL Normal [facility] Comment on above: Performed By: #### L [id number] ####[facility] ([facility])[address] [place] [address] HbA1c (Bld) [Mass fraction] 7.2 % High 4.0-6.0 [facility] Comment on above: Performed By: #### L [id number] ####[facility] ([facility])[address] [place] [address] LACTIC ACID WITH 4 HOUR REFL EXon 06-05-2023 LACTATE (MMOL/L) IN SER/PLAS 1.1 mmol/L Normal 0.5-2.2 [facility] Comment on above: Performed By: #### L [id number] #### [facility] ([facility]) [address] [place] [address] LEGIONELLA ANTIGEN, URINEon 06-05-2023 LEGIONELLA AG, UR Negative Normal NEG [facility] Comment on above: Result Comment: L. p neumophila serogroup 1 antigen not detected. A negative result does not exclude infection with Leginella pnemophila serogroup 1 nor does it rule out other microbial-caused respiratory infections of disease caused by other serogroups of Legionella pneumophila. Test Performed by [facility] [address] [place] [address] - Released 06/05/2023 12:36 Performed By: #### L [id number] #### [facility] [address] [place] [address] LIPID PANELon 06-05-2023 CHOL/HDL 1.6 mg/dL Normal [facility] Comment on above: Performed By: #### L [id number] #### [facility] ([facility]) [address] [place] [address] Cholesterol [Mass/Vol] 74 mg/dL Low 120-200 [facility] Comment on above: Performed By: #### L [id number] #### [facility] ([facility]) [address] [place] [address] Magnesium [Mass/Vol] 65 mg/dL Normal 40-149 [facility] Comment on above: Result Comment: TRIG LYCERIDE REFERENCE RANGE: 20 YEARS AND OLDER CARDIOVASCULAR RISK LESS THAN 150 mg/dL LOW RISK 150 TO 199 mg/dL BORDERLINE RISK 200 mg/dL AND GREATER HIGH RISK Performed By: #### L [id number] #### [facility] ([facility]) [address] [place] [address] Magnesium [Mass/Vol] 14 mg/dL Normal 0-160 [facility] Comment on above: Performed By: #### L [id number] #### [facility] ([facility]) [address] [place] [address] Magnesium [Mass/Vol] 47 mg/dL Normal 23-92 [facility] Comment on above: Performed By: #### L [id number] #### [facility] ([facility]) [address] [place] [address] NON HDL CHOL. (LDL+VLDL) [address] [facility] Comment on above: Performed By: #### L [id number] #### [facility] ([facility]) [address] [place] [address] TOTAL VLDL-C 13 mg/dL Normal 0-40 [facility] Comment on above: Performed By: #### L [id number] #### [facility] ([facility]) [address] [place] [address] MAGNESIUMon 06-05-2023 Magnesium [Mass/Vol] 1.1 mg/dL Low 1.9-2.7 [facility] Comment on above: Performed By: #### L [id number] #### [facility] ([facility]) [address] [place] [address] PHOSPHORUSon 06-05-2023 Magnesium [Mass/Vol] 2.8 mg/dL Normal 2.5-5.0 [facility] Comment on above: Performed By: #### L [id number] #### [facility] ([facility]) [address] [place] [address] PROTIME-INRon 06-05-2023 INR IN PPP BY COAGULATION ASSAY 1.25 High 0.90-1.10 [facility] Comment on above: Result Comment: ACCC [...] 1995;[id number]. Performed By: #### L [id number] #### [facility] [address] [place] [address] PROTHROMBIN TIME (PT) IN PPP BY COAGULATION ASSAY 15.7 Seconds High 12.3-14.8 [facility] Comment on above: Performed By: #### L [id number] #### [facility] [address] [place] [address] TOXICOLOGY PANEL URINEon AMPHETAMINE+METHAMPHE TAMINE SCREEN (PRESENCE) IN URINE Negative Normal Negative [facility] Comment on above: Performed By: #### L [id number] ####[facility] ([facility])[address] [place] [address] BARBITURATES PRESENCE IN URINE BY SCREEN METHOD Negative Normal Negative [facility] Comment on above: Performed By: #### L [id number] ####[facility] ([facility])[address] [place] [address] Benzodiazepines Ql (U) Negative Normal Negative [facility] Comment on above: Performed By: #### L [id number] ####[facility] ([facility])[address] [place] [address] CANNABINOID (PRESENCE) IN URINE BY SCREEN METHOD Negative Normal Negative [facility] Comment on above: Performed By: #### L [id number] ####[facility] ([facility])[address] [place] [address] Cocaine Ql (U) Negative Normal Negative [facility] Comment on above: Performed By: #### L [id number] ####[facility] ([facility] [place] [address] METHADONE (PRESENCE) IN URINE BY SCREEN METHOD Negative Normal Negative [facility] Comment on above: Performed By: #### L [id number] ####[facility] ([facility])[address] [place] [address] OPIATES (PRESENCE) IN URINE BY SCREEN METHOD Positive Abnormal Negative [facility] Comment on above: Performed By: #### L [id number] ####[facility] ([facility])[address] [place] [address] PHENCYCLIDINE PRESENCE IN URINE BY SCREEN METHOD Negative Normal Negative [facility] Comment on above: Performed By: #### L [id number] ####[facility] ([facility])[address] [place] [address] Propoxyphene Screen Ql (U) Negative Normal Negative [facility] Comment on above: Performed By: #### L [id number] ####[facility] ([facility])[address] [place] [address] TRICYCLIC ANTIDEPRESSANTS (PRESENCE) IN URINE Negative Normal Negative [facility] Comment on above: Performed By: #### L [id number] ####[facility] ([facility] [place] [address] TROPONIN Ion 06-05-2023 Troponin I.cardiac [Mass/Vol] 0.04 ng/mL Normal 0.00-0.04 [facility] Comment on above: Performed By: #### L [id number] #### [facility] ([facility]) [address] [place] [address] Troponin I.cardiac [Mass/Vol] 0.06 ng/mL High 0.00-0.04 [facility] Comment on above: Performed By: #### L [id number] ####[facility] ([facility] [place] [address] TSH3 REFLEX TO FT4on 023 THYROTROPIN (MIU/L) IN SER/PLAS BY DETECTION LIMIT <= 0.05 MIU/L 1.46 mIU/L Normal 0.34-5.60 [facility] Comment on above: Performed By: #### L [id number] ####[facility] ([facility])[address] [place] [address] URINALYSIS MICROSCOPIC WITH REFLEX CULTUREon 06-05-2023 CASTS IN URINE Normal [facility] Comment on above: Performed By: #### L [id number] ####[facility] ([facility])[address] [place] [address] CRYSTALS IN URINE Normal [facility] Comment on above: Performed By: #### L [id number] ####[facility] ([facility])[address] [place] [address] OTHER MICROSCOPIC ELEMENTS Normal [facility] Comment on above: Performed By: #### L [id number] ####[facility] ([facility])[address] [place] [address] RBC (#/HPF) IN URINE SEDIMENT 6-[address] [facility] Comment on above: Performed By: #### L [id number] ####[facility] ([facility])[address] [place] [address] SQUAMOUS EPITHELIAL CELLS (#/HPF) IN URINE SEDIMENT Many Abnormal None Seen, Occasional [facility] Comment on above: Performed By: #### L [id number] ####[facility] ([facility] [place] [address] WBC (LEUKOCYTE) (#/HPF) IN URINE SEDIMENT >[address] [facility] Comment on above: Performed By: #### L [id number] ####[facility] ([facility] [place] [address] URINALYSIS WITH REFLEX CULTU REon 06-05-2023 BILIRUBIN, TOTAL PRESENCE IN URINE Negative Normal Negative [facility] Comment on above: Performed By: #### L [id number] ####[facility] ([facility])[address] [place] [address] Clarity (U) Clear Normal Clear [facility] Comment on above: Performed By: #### L [id number] ####[facility] ([facility])[address] [place] [address] Color (U) Yellow Normal Yellow [facility] Comment on above: Performed By: #### L [id number] ####[facility] ([facility])[address] [place] [address] Glucose (U) [Mass/Vol] Negative Normal Negative [facility] Comment on above: Performed By: #### L [id number] ####[facility] ([facility])[address] [place] [address] HEMOGLOBIN PRESENCE IN URINE Moderate Abnormal Negative [facility] Comment on above: Performed By: #### L [id number] ####[facility] ([facility])[address] [place] [address] Ketones Ql (U) Trace Abnormal Negative [facility] Comment on above: Performed By: #### L [id number] ####[facility] ([facility])[address] [place] [address] LEUKOCYTE ESTERASE PRESENCE IN URINE BY TEST STRIP Large Abnormal Negative [facility] Comment on above: Performed By: #### L [id number] ####[facility] ([facility])[address] [place] [address] NITRITE PRESENCE IN URINE Positive Abnormal Negative [facility] Comment on above: Performed By: #### L [id number] ####[facility] ([facility])[address] [place] [address] pH (U) 6.0 [pH] Normal 5.0-8.0 [facility] Comment on above: Performed By: #### L [id number] ####[facility] ([facility])[address] [place] [address] Protein (U) [Mass/Vol] 30 mg/dL Abnormal Negative [facility] Comment on above: Performed By: #### L [id number] ####[facility] ([facility])[address] [place] [address] Specific gravity (U) [Rel density] 1.012 Low 1.015-1.020 [facility] Comment on above: Performed By: #### L [id number] ####[facility] ([facility])[address] [place] [address] 30on 06-04-2023 30 The patient is Moderately Stable - Low risk of patient condition declining or worsening The patient's goals for the shift include comfort The clinical goals for the shift include VSS Normal [facility] CT CHEST WO CONon 10-31-2022 CT [...] by: MIGUE REYNOSO Date: 2022-10-31 17:34 Normal [facility] HEMOGLOBINon 10-31-2022 Hemoglobin (Bld) [Mass/Vol] 11.8 g/dL Critically low 12.0-16.0 [facility] Comment on above: Performed By: #### C [id number] #### [facility] [address] [place] [address] Dr. Kayley Hatfield BUNon 10-10-2022 Urea nitrogen [Mass/Vol] 13.0 mg/dL Normal 7.0-18.0 [facility] Comment on above: Performed By: #### L DH #### [facility] [address] [place] [address] Dr. Kayley Hatfield CALCIUMon 10-10-2022 Calcium [Mass/Vol] 9.7 mg/dL Normal 8.5-10.1 [facility] Comment on above: Performed By: #### L DH #### [facility] [address] [place] [address] Dr. Kayley Hatfield CREATININEon 10-10-2022 Creatinine [Mass/Vol] 1.19 mg/dL Critically high 0.55-1.02 [facility] Comment on above: Performed By: #### L DH #### [facility] [address] [place] [address] Dr. Kayley Hatfield EGFR-AF CAMEROONIAN 55 mL/min/1.73m2 Critically low >=60 [facility] Comment on above: Performed By: #### L DH #### [facility] [address] [place] [address] Dr. Kayley Hatfield EGFR-NON AF CAMEROONIAN 46 mL/min/1.73m2 Critically low >=60 [facility] Comment on above: Performed By: #### L DH #### [facility] [address] [place] [address] Dr. Kayley Hatfield CRPon 10-10-2022 CRP [Mass/Vol] mg/L Normal <=1.0 [facility] Comment on above: Performed By: #### L DH #### [facility] [address] [place] [address] Dr. Kayley Hatfield MAGNESIUMon 10-10-2022 Magnesium [Mass/Vol] 1.7 mg/dL Critically low 1.8-2.4 [facility] Comment on above: Performed By: #### L DH #### [facility] [address] [place] [address] Dr. Kayley Hatfield PHOSPHORUSon 10-10-2022 Phosphate [Mass/Vol] 4.0 mg/dL Normal 2.6-4.7 [facility] Comment on above: Performed By: #### L DH #### [facility] [address] [place] [address] Dr. Kayley Hatfield SED RATE WESTERGRENon 2022 SED RATE 25 mm/hr Normal <=30 [facility] Comment on above: Performed By: #### P RTELEC #### [facility] [address] [place] [address] Dr. Kayley Hatfield CBC AUTO DIFFon 05-01-2022 BASO # 0.1 103/ul Normal 0.0-0.1 [facility] Comment on above: Performed By: #### P RBC #### [facility] [address] [place] [address] Dr. Kayley Hatfield Basophils/100 WBC (Bld) 0.5 % Normal 0.2-2.0 [facility] Comment on above: Performed By: #### P RBC #### [facility] [address] [place] [address] Dr. Kayley Hatfield EO # 0.2 103/ul Normal 0.0-0.7 [facility] Comment on above: Performed By: #### P RBC #### [facility] [address] [place] [address] Dr. Kayley Hatfield Eosinophils/100 WBC (Bld) 1.2 % Normal 0.9-7.0 [facility] Comment on above: Performed By: #### P RBC #### [facility] [address] [place] [address] Dr. Kayley Hatfield Erythrocyte distribution width (RBC) [Ratio] 14.9 % Normal 11.0-15.0 [facility] Comment on above: Performed By: #### P RBC #### [facility] [address] [place] [address] Dr. Kayley Hatfield Hematocrit (Bld) [Volume fraction] 34.2 % Critically low 36.0-48.0 [facility] Comment on above: Performed By: #### P RBC #### [facility] [address] [place] [address] Dr. Kayley Hatfield Hemoglobin (Bld) [Mass/Vol] 10.3 g/dL Critically low 12.0-16.0 [facility] Comment on above: Performed By: #### P RBC #### [facility] [address] [address] [address] Kayley Hatfield IG # 0.19 10e3/ul Critically high 0.00-0.03 [facility] Comment on above: Performed By: #### P RBC #### [facility] [address] [place] [address] Dr. Kayley Hatfield IG % 1.3 % Critically high 0.0-0.5 [facility] Comment on above: Performed By: #### P RBC #### [facility] [address] [place] [address] Dr. Kayley Hatfield LYMPH # 1.1 103/ul Critically low 1.2-3.8 [facility] Comment on above: Performed By: #### P RBC #### [facility] [address] [place] [address] Dr. Kayley Hatfield Lymphocytes/100 WBC (Bld) 7.3 % Critically low 20.5-60.0 [facility] Comment on above: Performed By: #### P RBC #### [facility] [address] [place] [address] Dr. Kayley Hatfield MANUAL DIFF REQ NO [facility] Comment on above: Performed By: #### P RBC #### [facility] [address] [place] [address] Dr. Kayley Hatfield MCH (RBC) [Entitic mass] 28.4 pg Normal 26.7-34.0 [facility] Comment on above: Performed By: #### P RBC #### [facility] [address] [place] [address] Dr. Kayley Hatfield MCHC (RBC) [Mass/Vol] 30.1 g/dL Normal 29.9-35.2 [facility] Comment on above: Performed By: #### P RBC #### [facility] [address] [address] [address] Kayley Hatfield MCV (RBC) [Entitic vol] 94.2 fL Normal 81.0-99.0 [facility] Comment on above: Performed By: #### P RBC #### [facility] [address] [address] [address] Kayley Hatfield MONO # 0.6 103/ul Normal 0.3-0.8 [facility] Comment on above: Performed By: #### P RBC #### [facility] [address] [address] [address] Kayley Hatfield Monocytes/100 WBC (Bld) 4.0 % Normal 1.7-12.0 [facility] Comment on above: Performed By: #### P RBC #### [facility] [address] [place] [address] Dr. Kayley Hatfield NEUT # 12.5 103/ul Critically high 1.4-6.5 [facility] Comment on above: Performed By: #### P RBC #### [facility] [address] [place] [address] Dr. Kayley Hatfield Neutrophils/100 WBC (Bld) 85.7 % Critically high 43.0-75.0 [facility] Comment on above: Performed By: #### P RBC #### [facility] [address] [address] [address] Kayley Hatfield Platelet mean volume (Bld) [Entitic vol] 8.5 fL Critically low 9.5-13.5 [facility] Comment on above: Performed By: #### P RBC #### [facility] [address] [place] [address] Dr. Kayley Hatfield PLT 574 103/ul Critically high 150-450 [facility] Comment on above: Performed By: #### P RBC #### [facility] [address] [place] [address] [address] Kayley Hatfield RBC 3.63 106/ul Critically low 4.20-5.40 [facility] Comment on above: Performed By: #### P RBC #### [facility] [address] [place] [address] Dr. Kayley Hatfield WBC 14.6 103/ul Critically high 4.0-11.0 [facility] Comment on above: Performed By: #### P RBC #### [facility] [address] [place] [address] Dr. Kayley Hatfield MAGNESIUMon 05-01-2022 Magnesium [Mass/Vol] 2.1 mg/dL Normal 1.8-2.4 [facility] Comment on above: Performed By: #### O BSCRN #### [facility] [address] [place] [address] Dr. Kayley Hatfield PROF CHEM 8 (BAS METB)on Anion gap [Moles/Vol] 8.6 mmol/L Normal [facility] Comment on above: Performed By: #### O BSCRN #### [facility] [address] [place] [address] Dr. Kayley Hatfield Calcium [Mass/Vol] 9.0 mg/dL Normal 8.5-10.1 [facility] Comment on above: Performed By: #### O BSCRN #### [facility] [address] [place] [address] Dr. Kayley Hatfield Chloride [Moles/Vol] 101 mmol/L Normal 98-107 [facility] Comment on above: Performed By: #### O BSCRN #### [facility] [address] [place] [address] Dr. Kayley Hatfield CO2 [Moles/Vol] 33.0 mmol/L Critically high 21.0-32.0 [facility] Comment on above: Performed By: #### O BSCRN #### [facility] [address] [place] [address] Dr. Kayley Hatfield Creatinine [Mass/Vol] 0.94 mg/dL Normal 0.55-1.02 [facility] Comment on above: Performed By: #### O BSCRN #### [facility] [address] [place], [place] [id number] Dr. Kayley Hatfield EGFR-AF CAMEROONIAN >60 Normal >=60 [facility] Comment on above: Performed By: #### O BSCRN #### [facility] [address] [place] [address] Dr. Kayley Hatfield EGFR-NON AF CAMEROONIAN >60 Normal >=60 [facility] Comment on above: Performed By: #### O BSCRN #### [facility] [address] [address] [address] Kayley Hatfield Glucose [Mass/Vol] 143 mg/dL Critically high 74-106 [facility] Comment on above: Performed By: #### O BSCRN #### [facility] [address] [place] [address] Dr. Kayley Hatfield Potassium [Moles/Vol] 4.6 mmol/L Normal 3.5-5.1 [facility] Comment on above: Performed By: #### O BSCRN #### [facility] [address] [place] [address] Dr. Kayley Hatfield Sodium [Moles/Vol] 138 mmol/L Normal 136-145 [facility] Comment on above: Performed By: #### O BSCRN #### [facility] [address] [place] [address] Dr. Kayley Hatfield Urea nitrogen [Mass/Vol] 15.0 mg/dL Normal 7.0-18.0 [facility] Comment on above: Performed By: #### O BSCRN #### [facility] [address] [place] [address] Dr. Kayley Hatfield Urea nitrogen/Creatinine [Mass ratio] 16.0 mg/mg Normal [facility] Comment on above: Performed By: #### O BSCRN #### [facility] [address] [place] [address] Dr. Kayley Hatfield CBC AUTO DIFFon 04-26-2022 BASO # 0.1 103/ul Normal 0.0-0.1 [facility] Comment on above: Performed By: #### P RBC #### [facility] [address] [place] [address] Dr. Kayley Hatfield Basophils/100 WBC (Bld) 0.5 % Normal 0.2-2.0 [facility] Comment on above: Performed By: #### P RBC #### [facility] [address] [place] [address] Dr. Kayley Hatfield EO # 0.2 103/ul Normal 0.0-0.7 [facility] Comment on above: Performed By: #### P RBC #### [facility] [address] [address] [address] Kayley Hatfield Eosinophils/100 WBC (Bld) 1.8 % Normal 0.9-7.0 [facility] Comment on above: Performed By: #### P RBC #### [facility] [address] [place] [address] Dr. Kayley Hatfield Erythrocyte distribution width (RBC) [Ratio] 14.7 % Normal 11.0-15.0 [facility] Comment on above: Performed By: #### P RBC #### [facility] [address] [place] [address] Dr. Kayley Hatfield Hematocrit (Bld) [Volume fraction] 32.0 % Critically low 36.0-48.0 [facility] Comment on above: Performed By: #### P RBC #### [facility] [address] [place] [address] Dr. Kayley Hatfield Hemoglobin (Bld) [Mass/Vol] 9.9 g/dL Critically low 12.0-16.0 [facility] Comment on above: Performed By: #### P RBC #### [facility] [address] [place] [address] Dr. Kayley Hatfield IG # 0.07 10e3/ul Critically high 0.00-0.03 [facility] Comment on above: Performed By: #### P RBC #### [facility] [address] [place] [address] Dr. Kayley Hatfield IG % 0.6 % Critically high 0.0-0.5 [facility] Comment on above: Performed By: #### P RBC #### [facility] [address] [place] [address] Dr. Kayley Hatfield LYMPH # 1.2 103/ul Normal 1.2-3.8 [facility] Comment on above: Performed By: #### P RBC #### [facility] [address] [place] [address] Dr. Kayley Hatfield Lymphocytes/100 WBC (Bld) 10.9 % Critically low 20.5-60.0 [facility] Comment on above: Performed By: #### P RBC #### [facility] [address] [place] [address] Dr. Kayley Hatfield MANUAL DIFF REQ NO Normal [facility] Comment on above: Performed By: #### P RBC #### [facility] [address] [place] [address] Dr. Kayley Hatfield MCH (RBC) [Entitic mass] 28.4 pg Normal 26.7-34.0 [facility] Comment on above: Performed By: #### P RBC #### [facility] [address] [place] [address] Dr. Kayley Hatfield MCHC (RBC) [Mass/Vol] 30.9 g/dL Normal 29.9-35.2 [facility] Comment on above: Performed By: #### P RBC #### [facility] [address] [place] [address] Dr. Kayley Hatfield MCV (RBC) [Entitic vol] 92.0 fL Normal 81.0-99.0 [facility] Comment on above: Performed By: #### P RBC #### [facility] [address] [place] [address] Dr. Kayley Hatfield MONO # 1.4 103/ul Critically high 0.3-0.8 [facility] Comment on above: Performed By: #### P RBC #### [facility] [address] [place] [address] Dr. Kayley Hatfield Monocytes/100 WBC (Bld) 11.9 % Normal 1.7-12.0 [facility] Comment on above: Performed By: #### P RBC #### [facility] [address] [place] [address] Dr. Kayley Hatfield NEUT # 8.4 103/ul Critically high 1.4-6.5 [facility] Comment on above: Performed By: #### P RBC #### [facility] [address] [place] [address] Dr. Kayley Hatfield Neutrophils/100 WBC (Bld) 74.3 % Normal 43.0-75.0 [facility] Comment on above: Performed By: #### P RBC #### [facility] [address] [place] [address] Dr. Kayley Hatfield Platelet mean volume (Bld) [Entitic vol] 8.8 fL Critically low 9.5-13.5 [facility] Comment on above: Performed By: #### P RBC #### [facility] [address] [place] [address] Dr. Kayley Hatfield PLT 953 103/ul Critically high 150-450 [facility] Comment on above: Performed By: #### P RBC #### [facility] [address] [place] [address] Dr. Kayley Hatfield RBC 3.48 106/ul Critically low 4.20-5.40 [facility] Comment on above: Performed By: #### P RBC #### [facility] [address] [place] [address] Dr. aKyley Hatfield WBC 11.3 103/ul Critically high 4.0-11.0 [facility] Comment on above: Performed By: #### P RBC #### [facility] [address] [place] [address] Dr. Kayley Hatfield POINT OF CARE GLUCOSEon 04-08 Glucose [Mass/Vol] 225 mg/dL Critically high 74-106 [facility] Comment on above: Performed By: #### B [id number] #### [facility] [address] [place] [address] Dr. Kayley Hatfield PROF CHEM 8 (BAS METB)on Anion gap [Moles/Vol] 10.7 mmol/L Normal [facility] Comment on above: Performed By: #### P RBC #### [facility] [address] [address] [address] Kayley Hatfield Calcium [Mass/Vol] 9.2 mg/dL Normal 8.5-10.1 [facility] Comment on above: Performed By: #### P RBC #### [facility] [address] [place] [address] Dr. Kayley Hatfield Chloride [Moles/Vol] 103 mmol/L Normal 98-107 [facility] Comment on above: Performed By: #### P RBC #### [facility] [address] [place] [address] Dr. Kayley Hatfield CO2 [Moles/Vol] 29.2 mmol/L Normal 21.0-32.0 [facility] Comment on above: Performed By: #### P RBC #### [facility] [address] [place] [address] Dr. Kayley Hatfield Creatinine [Mass/Vol] 0.85 mg/dL Normal 0.55-1.02 [facility] Comment on above: Performed By: #### P RBC #### [facility] [address] [place] [address] Dr. Kayley Hatfield EGFR-AF CAMEROONIAN >60 Normal >=60 [facility] Comment on above: Performed By: #### P RBC #### [facility] [address] [place] [address] Dr. Kayley Hatfield EGFR-NON AF CAMEROONIAN >60 Normal >=60 [facility] Comment on above: Performed By: #### P RBC #### [facility] [address] [place] [address] Dr. Kayley Hatfield Glucose [Mass/Vol] 81 mg/dL Normal 74-106 [facility] Comment on above: Performed By: #### P RBC #### [facility] [address] [place] [address] Dr. Kayley Hatfield Potassium [Moles/Vol] 3.9 mmol/L Normal 3.5-5.1 [facility] Comment on above: Performed By: #### P RBC #### [facility] [address] [place] [address] Dr. Kayley Hatfield Sodium [Moles/Vol] 139 mmol/L Normal 136-145 [facility] Comment on above: Performed By: #### P RBC #### [facility] [address] [address] [address] Kayley Hatfield Urea nitrogen [Mass/Vol] 9.0 mg/dL Normal 7.0-18.0 [facility] Comment on above: Performed By: #### P RBC #### [facility] [address] [address] [address] Kayley Hatfield Urea nitrogen/Creatinine [Mass ratio] 10.6 mg/mg Normal [facility] Comment on above: Performed By: #### P RBC #### [facility] [address] [address] [address] Kayley Hatfield XR CHEST 2 Von [...] MIGUE REYNOSO Date: 2022-04-26 09:59 Normal [facility] BNPon 04-25-2022 Natriuretic peptide B (Bld) [Mass/Vol] 234.0 pg/mL Normal <=900.0 [facility] Comment on above: Performed By: #### P RTELEC #### [facility] [address] [address] [address] Kayley Hatfield CBC AUTO DIFFon 04-25-2022 BASO # 0.1 103/ul Normal 0.0-0.1 [facility] Comment on above: Performed By: #### P RBC #### [facility] [address] [address] [address] Kayley Hatfield Basophils/100 WBC (Bld) 0.4 % Normal 0.2-2.0 [facility] Comment on above: Performed By: #### P RBC #### [facility] [address] [address] [address] Kayley Hatfield EO # 0.2 103/ul Normal 0.0-0.7 [facility] Comment on above: Performed By: #### P RBC #### [facility] [address] [address] [address] Kayley Hatfield Eosinophils/100 WBC (Bld) 1.0 % Normal 0.9-7.0 [facility] Comment on above: Performed By: #### P RBC #### [facility] [address] [place] [address] Dr. Kayley Hatfield Erythrocyte distribution width (RBC) [Ratio] 14.8 % Normal 11.0-15.0 [facility] Comment on above: Performed By: #### P RBC #### [facility] [address] [address] [address] Kayley Hatfield Hematocrit (Bld) [Volume fraction] 35.4 % Critically low 36.0-48.0 [facility] Comment on above: Performed By: #### P RBC #### [facility] [address] [address] [address] Kayley Hatfield Hemoglobin (Bld) [Mass/Vol] 10.9 g/dL Critically low 12.0-16.0 [facility] Comment on above: Performed By: #### P RBC #### [facility] [address] [address] [address] Kayley Hatfield IG # 0.08 10e3/ul Critically high 0.00-0.03 [facility] Comment on above: Performed By: #### P RBC #### [facility] [address] [address] [address] Kayley Hatfield IG % 0.5 % Normal 0.0-0.5 [facility] Comment on above: Performed By: #### P RBC #### [facility] [address] [address] [address] Kayley Hatfield LYMPH # 1.2 103/ul Normal 1.2-3.8 [facility] Comment on above: Performed By: #### P RBC #### [facility] [address] [address] [address] Kayley Hatfield Lymphocytes/100 WBC (Bld) 7.4 % Critically low 20.5-60.0 [facility] Comment on above: Performed By: #### P RBC #### [facility] [address] [address] [address] Kayley Hatfield MANUAL DIFF REQ NO Normal [facility] Comment on above: Performed By: #### P RBC #### [facility] [address] [place] [address] Dr. Kayley Hatfield MCH (RBC) [Entitic mass] 27.9 pg Normal 26.7-34.0 [facility] Comment on above: Performed By: #### P RBC #### [facility] [address] [place] [address] Dr. Kayley Hatfield MCHC (RBC) [Mass/Vol] 30.8 g/dL Normal 29.9-35.2 [facility] Comment on above: Performed By: #### P RBC #### [facility] [address] [place] [address] Dr. Kayley Hatfield MCV (RBC) [Entitic vol] 90.5 fL Normal 81.0-99.0 [facility] Comment on above: Performed By: #### P RBC #### [facility] [address] [address] [address] Kayley Hatfield MONO # 1.5 103/ul Critically high 0.3-0.8 [facility] Comment on above: Performed By: #### P RBC #### [facility] [address] [place] [address] Dr. Kayley Hatfield Monocytes/100 WBC (Bld) 8.7 % Normal 1.7-12.0 [facility] Comment on above: Performed By: #### P RBC #### [facility] [address] [address] [address] Kayley Hatfield NEUT # 13.8 103/ul Critically high 1.4-6.5 [facility] Comment on above: Performed By: #### P RBC #### [facility] [address] [address] [address] Kayley Hatfield Neutrophils/100 WBC (Bld) 82.0 % Critically high 43.0-75.0 [facility] Comment on above: Performed By: #### P RBC #### [facility] [address] [address] [address] Kayley Hatfield Platelet mean volume (Bld) [Entitic vol] 8.9 fL Critically low 9.5-13.5 [facility] Comment on above: Performed By: #### P RBC #### [facility] [address] [place] [address] Dr. Kayley Hatfield PLT 1076 103/ul Critically high 150-450 [facility] Comment on above: Performed By: #### P RBC #### [facility] [address] [place] [address] Dr. Kayley Hatfield RBC 3.91 106/ul Critically low 4.20-5.40 [facility] Comment on above: Performed By: #### P RBC #### [facility] [address] [place] [address] Dr. Kayley Hatfield WBC 16.8 103/ul Critically high 4.0-11.0 [facility] Comment on above: Performed By: #### P RBC #### [facility] [address] [place] [address] HEAD WO CONon [...] by: MIGUE REYNOSO Date: 2022-04-25 14:59 Normal [facility] CTA CHEST WO W CONon 2 [...] MIGUE REYNOSO Date: 2022-04-25 15:18 Normal [facility] Covid-19 PCR (CVDTB)on 04-08 SARS-CoV-2 (COVID-19) RNA ELBA+probe Ql (Unsp spec) Not detected Normal NOT DETECTED [facility] Comment on above: Result Comment: When [...] for this test is supported by the Alteration Hand of Health and Human Service's declaration that [...] used). Performed By: #### C VDTB #### [facility] [address] [address] [address] Kayley Hatfield ER URINE PROFILEon 2 Bilirubin Ql (U) Negative Normal NEGATIVE [facility] Comment on above: Performed By: #### C VDTBH #### [facility] [address] [id number] [address] Kayley Hatfield Clarity (U) CLEAR Normal CLEAR [facility] Comment on above: Performed By: #### C VDTBH #### [facility] [address] [address] [address] Kayley Hatfield Color (U) LT. YELLOW Normal YELLOW [facility] Comment on above: Performed By: #### C VDTBH #### [facility] [address] [place] [address] Dr. Kayley Hatfield ERUAHBetsey A micrscopic examination will be performed if indicated. Normal [facility] Comment on above: Performed By: #### C VDTBH #### [facility] [address] [place] [address] Dr. Kayley Hatfield Glucose Ql (U) Negative Normal NEGATIVE [facility] Comment on above: Performed By: #### C VDTBH #### [facility] [address] [place] [address] Dr. Kayley Hatfield Hemoglobin Ql (U) TRACE-INTACT Abnormal NEGATIVE [facility] Comment on above: Performed By: #### C VDTBH #### [facility] [address] [place] [address] Dr. Kayley Hatfield Ketones Ql (U) Negative Normal NEGATIVE [facility] Comment on above: Performed By: #### C VDTBH #### [facility] [address] [place] [address] Dr. Kayley Hatfield LEUKOCYTES Negative Normal NEGATIVE [facility] Comment on above: Performed By: #### C VDTBH #### [facility] [address] [place] [address] Dr. Kayley Hatfield Nitrite Ql (U) Negative Normal NEGATIVE [facility] Comment on above: Performed By: #### C VDTBH #### [facility] [address] [place] [address] Dr. Kayley Hatfield pH (U) 8.0 [pH] Normal 5-9 [facility] Comment on above: Performed By: #### C VDTBH #### [facility] [address] [place] [address] Dr. Kayley Hatfield SPEC GRAVITY 1.010 Normal 1.005-<=1.025 [facility] Comment on above: Performed By: #### C VDTBH #### [facility] [address] [address] [address] Kayley Hatfield UA PROTEIN Negative Normal NEGATIVE/ TRACE [facility] Comment on above: Performed By: #### C VDTBH #### [facility] [address] [address] [address] Kayley Hatfield UR MICRO IND INDICATED Normal [facility] Comment on above: Performed By: #### C VDTBH #### [facility] [address] [address] [address] Kayley Hatfield Urobilinogen Qn (U) 0.2 {Lu'U}/dL Normal 0.2 - 1. 0 [facility] Comment on above: Performed By: #### C VDTBH #### [facility] [address] [place] [address] Dr. Kayley Hatfield LACTATE/LACTIC ACIDon 2021 Lactate [Moles/Vol] 1.1 mmol/L Normal 0.4-1.9 [facility] Comment on above: Performed By: #### P RTELEC #### [facility] [address] [address] [address] Kayley Hatfield PH VENOUS BLOODon 04-25-2022 PCO2 VENOUS 54.5 mmHg Critically high 40.0-52.0 [facility] Comment on above: Performed By: #### L DH #### [facility] [address] [place] [address] Dr. Kayley Hatfield pH VENOUS 7.385 Normal 7.330-7.430 [facility] Comment on above: Performed By: #### L DH #### [facility] [address] [address] [address] Kayley Hatfield POINT OF CARE GLUCOSEon 04-08 Glucose [Mass/Vol] 91 mg/dL Normal 74-106 [facility] Comment on above: Performed By: #### O BSCRN #### [facility] [address] [address] [address] Kayley Hatfield Glucose [Mass/Vol] 116 mg/dL Critically high 74-106 [facility] Comment on above: Performed By: #### O BSCRN #### [facility] [address] [address] [address] Kayley Hatfield PROF 14(COMP METB)on 04-25- 022 Albumin [Mass/Vol] 2.7 g/dL Critically low 3.4-5.0 [facility] Comment on above: Performed By: #### O BSCRN #### [facility] [address] [address] [address] Kayley Hatfield Albumin/Globulin [Mass ratio] 0.6 {ratio} Normal [facility] Comment on above: Performed By: #### O BSCRN #### [facility] [address] [place] [address] Dr. Kayley Hatfield ALP [Catalytic activity/Vol] 132 U/L Critically high 46-116 [facility] Comment on above: Performed By: #### O BSCRN #### [facility] [address] [place] [address] Dr. Kayley Hatfield ALT [Catalytic activity/Vol] 21 U/L Normal 14-59 [facility] Comment on above: Performed By: #### O BSCRN #### [facility] [address] [place] [address] Dr. Kayley Hatfield Anion gap [Moles/Vol] 8.1 mmol/L Normal [facility] Comment on above: Performed By: #### O BSCRN #### [facility] [address] [address] [address] Kayley Hatfield AST [Catalytic activity/Vol] 23 U/L Normal 15-37 [facility] Comment on above: Performed By: #### O BSCRN #### [facility] [address] [place] [address] Dr. Kayley Hatfield Bilirubin [Mass/Vol] 0.3 mg/dL Normal 0.2-1.0 [facility] Comment on above: Performed By: #### O BSCRN #### [facility] [address] [place] [address] Dr. Kayley Hatfield Calcium [Mass/Vol] 9.4 mg/dL Normal 8.5-10.1 [facility] Comment on above: Performed By: #### O BSCRN #### [facility] [address] [place] [address] Dr. Kayley Hatfield Chloride [Moles/Vol] 100 mmol/L Normal 98-107 [facility] Comment on above: Performed By: #### O BSCRN #### [facility] [address] [place] [address] Dr. Kayley Hatfield CO2 [Moles/Vol] 31.8 mmol/L Normal 21.0-32.0 [facility] Comment on above: Performed By: #### O BSCRN #### [facility] [address] [place] [address] Dr. Kayley Hatfield Creatinine [Mass/Vol] 0.79 mg/dL Normal 0.55-1.02 [facility] Comment on above: Performed By: #### O BSCRN #### [facility] [address] [place] [address] Dr. Kayley Hatfield EGFR-AF CAMEROONIAN >60 Normal >=60 [facility] Comment on above: Performed By: #### O BSCRN #### [facility] [address] [place] [address] Dr. Kayley Hatfield EGFR-NON AF CAMEROONIAN >60 Normal >=60 [facility] Comment on above: Performed By: #### O BSCRN #### [facility] [address] [place] [address] Dr. Kayley Hatfield Globulin (S) [Mass/Vol] 4.2 g/dL Normal [facility] Comment on above: Performed By: #### O BSCRN #### [facility] [address] [address] [address] Kayley Hatfield Glucose [Mass/Vol] 134 mg/dL Critically high 74-106 [facility] Comment on above: Performed By: #### O BSCRN #### [facility] [address] [place] [address] Dr. Kayley Hatfield Potassium [Moles/Vol] 3.9 mmol/L Normal 3.5-5.1 [facility] Comment on above: Performed By: #### O BSCRN #### [facility] [address] [place] [address] Dr. Kayley Hatfield Protein [Mass/Vol] 6.9 g/dL Normal 6.4-8.2 [facility] Comment on above: Performed By: #### O BSCRN #### [facility] [address] [place] [address] Dr. Kayley Hatfield Sodium [Moles/Vol] 136 mmol/L Normal 136-145 [facility] Comment on above: Performed By: #### O BSCRN #### [facility] [address] [place] [address] Dr. Kayley Hatfield Urea nitrogen [Mass/Vol] 10.0 mg/dL Normal 7.0-18.0 [facility] Comment on above: Performed By: #### O BSCRN #### [facility] [address] [place] [address] Dr. Kayley Hatfield Urea nitrogen/Creatinine [Mass ratio] 12.7 mg/mg Normal [facility] Comment on above: Performed By: #### O BSCRN #### [facility] [address] [place] [address] Dr. Kayley Hatfield PROTIMEon 04-25-2022 INR Coag (PPP) [Relative time] 1.08 {INR} Normal [facility] Comment on above: Performed By: #### P RTELEC #### [facility] [address] [place] [address] Dr. Kayley Hatfield INR GUIDELINES SEE BELOW Normal [facility] Comment on above: Result Comment: JOAQUIM RED INR: 2.0 - 3.0 CONDITIONS NOT LISTED BELOW 2.5 - 3.5 FOR PROSTHETIC HEART VALVE REPLACEMENT 2.5 - 3.5 RECURRENT THROMBOSIS Performed By: #### P RTELEC #### [facility] [address] [place] [address] Dr. Kayley Hatfield PT Coag (PPP) [Time] 11.6 s Normal 9.0-11.6 [facility] Comment on above: Performed By: #### P RTELEC #### [facility] [address] [place] [address] Dr. Kayley Hatfield PTTon 04-25-2022 aPTT Coag (Bld) [Time] 31.1 s Normal 22.3-36.2 [facility] Comment on above: Performed By: #### P RTELEC #### [facility] [address] [place] [address] Dr. Kayley Hatfield TROPONIN, HIGH SENSITIVITYon 04-25-2022 HSTROP 9.6 pg/mL Normal 4.0-51.3 [facility] Comment on above: Result Comment: CUT- OFF POINTS HAVE BEEN ESTABLISHED BASED ON THE FOURTH UNIVERSAL DEFINITIONS OF MYOCARDIAL INFARCTION. THE UPPER REFERENCE LIMIT (URL) OF TROPONIN, DEFINED THE 99TH PERCENTILE OF cTnI DISTRIBUTION IN A REFERENCE POPULATION, HAS BEEN CONFIRMED THE DECISION THRESHOLD FOR ME DIAGNOSIS. Performed By: #### P RTELEC #### [facility] [address] [place] [address] Dr. Kayley Hatfield TSHon 04-25-2022 TSH 1.431 uIU/mL Normal 0.358-3.740 [facility] Comment on above: Performed By: #### P RTELEC #### [facility] [address] [place] [address] Dr. Kayley Hatfield URINE MICROSCOPIC ONLYon BACTERIA NONE SEEN Normal NONE SEEN [facility] Comment on above: Performed By: #### C VDTBH #### [facility] [address] [place] [address] Dr. Kayley Hatfield Bacteria identified Cx Nom (U) NOT INDICATED Normal [facility] Comment on above: Performed By: #### C VDTBH #### [facility] [address] [place] [address] Dr. Kayley Hatfield CAST NONE SEEN Normal NONE SEEN [facility] Comment on above: Performed By: #### C VDTBH #### [facility] [address] [place] [address] Dr. Kayley Hatfield Crystals LM Nom (Urine sed) NONE SEEN Normal NONE SEEN [facility] Comment on above: Performed By: #### C VDTBH #### [facility] [address] [place] [address] Dr. Kayley Hatfield Epithelial cells LM Ql (Urine sed) FEW Abnormal NONE SEEN /RARE [facility] Comment on above: Performed By: #### C VDTBH #### [facility] [address] [place] [address] Dr. Kayley Hatfield MUCOUS NONE SEEN Normal NONE SEEN [facility] Comment on above: Performed By: #### C VDTBH #### [facility] [address] [place] [address] Dr. Kayley Hatfield RBC 2-5 Abnormal 0-2 [facility] Comment on above: Performed By: #### C VDTBH #### [facility] [address] [place] [address] Dr. Kayley Hatfield WBC NONE SEEN Normal NONE SEEN [facility] Comment on above: Performed By: #### C VDTBH #### [facility] [address] [place] [address] Dr. Kayley Hatfield IMMUNOFIXATION(KENNETH),PROTEIN ELEC(PE),[facility] 03-31-2022 Albumin [Mass/Vol] 3.6 g/dL Normal 2.9-4.4 [facility] Comment on above: Performed By: #### B [id number] #### [facility] [address] [place] [address] Dr. Kayley Hatfield Albumin/Globulin [Mass ratio] 1.6 {ratio} Normal 0.7-1.7 [facility] Comment on above: Performed By: #### B [id number] #### [facility] [address] [place] [address] Dr. Kayley Hatfield Aghce-0-Qvkplawh 0.3 g/dL Normal 0.0-0.4 [facility] Comment on above: Performed By: #### B [id number] #### [facility] [address] [place] [address] Dr. Kayley Hatfield Pwjsf-2-Jjqvlbta 0.8 g/dL Normal 0.4-1.0 [facility] Comment on above: Performed By: #### B LDCX1 #### [facility] [address] [address] [address] Kayley Hatfield Beta Globulin 1.0 g/dL Normal 0.7-1.3 [facility] Comment on above: Performed By: #### B LDCX1 #### [facility] [address] [place] [address] Dr. Kayley Hatfield Free Corfu Lt Chains,S 16.0 mg/L Normal 3.3-19.4 [facility] Comment on above: Performed By: #### B LDCX1 #### [facility] [address] [place] [address] Dr. Kayley Hatfield Free Lambda Lt Chains,S 10.1 mg/L Normal 5.7-26.3 [facility] Comment on above: Performed By: #### B LDCX1 #### [facility] [address] [place] [address] Dr. Kayley Hatfield Gamma Globulin 0.4 g/dL Normal 0.4-1.8 [facility] Comment on above: Performed By: #### B [id number] #### [facility] [address] [place] [address] Dr. Kayley Hatfield Globulin (S) [Mass/Vol] 2.4 g/dL Normal 2.2-3.9 [facility] Comment on above: Performed By: #### B LDCX1 #### [facility] [address] [place] [address] Dr. Kayley Hatfield Immunofixation Result, Serum Comment Normal [facility] Comment on above: Result Comment: No m onoclonality detected. Performed By: #### B LDCX1 #### [facility] [address] [place] [address] Dr. Kayley Hatfield Immunoglobulin A, Qn, Serum 128 mg/dL Normal 87-352 [facility] Comment on above: Performed By: #### B LDCX1 #### [facility] [address] [place] [address] Dr. Kayley Hatfield Immunoglobulin G, Qn, Serum 487 mg/dL Critically low [id number] [facility] Comment on above: Performed By: #### B LDCX1 #### [facility] [address] [place] [address] Dr. Kayley Hatfield Immunoglobulin M, Qn, Serum 38 mg/dL Normal 26-217 [facility] Comment on above: Performed By: #### B LDCX1 #### [facility] [address] [place] [address] Dr. Kayley Hatfield Corfu/Lambda Ratio, S 1.58 Normal 0.26-1.65 [facility] Comment on above: Performed By: #### B LDCX1 #### [facility] [address] [place] [address] Dr. Kayley Hatfield M-Sandip Not Observed Normal Not Observed [facility] Comment on above: Performed By: #### B LDCX1 #### [facility] [address] [place] [address] Dr. Kayley Hatfield PDF . Normal [facility] Comment on above: Performed By: #### B LDCX1 #### [facility] [address] [place] [address] Dr. Kayley Hatfield Please note: Comment Normal [facility] Comment on above: Result Comment: Prot ein electrophoresis scan will follow via computer, mail, or tar distributor operator delivery. Performed By: #### B LDCX1 #### [facility] [address] [place] [address] Dr. Kayley Hatfield Protein [Mass/Vol] 6.0 g/dL Normal 6.0-8.5 [facility] Comment on above: Performed By: #### B LDCX1 #### [facility] [address] [place] [address] Dr. Kayley Hatfield CBC AUTO DIFFon 03-30-2022 BASO # 0.1 103/ul Normal 0.0-0.1 [facility] Comment on above: Performed By: #### P RBC #### [facility] [address] [place] [address] Dr. Kayley Hatfield Basophils/100 WBC (Bld) 0.4 % Normal 0.2-2.0 [facility] Comment on above: Performed By: #### P RBC #### [facility] [address] [address] [address] Kayley Hatfield EO # 0.2 103/ul Normal 0.0-0.7 [facility] Comment on above: Performed By: #### P RBC #### [facility] [address] [address] [address] Kayley Hatfield Eosinophils/100 WBC (Bld) 1.1 % Normal 0.9-7.0 [facility] Comment on above: Performed By: #### P RBC #### [facility] [address] [place] [address] Dr. Kayley Hatfield Erythrocyte distribution width (RBC) [Ratio] 0.0 % Critically low 11.0-15.0 [facility] Comment on above: Performed By: #### P RBC #### [facility] [address] [place] [address] Dr. Kayley Hatfield Hematocrit (Bld) [Volume fraction] 24.0 % Critically low 36.0-48.0 [facility] Comment on above: Performed By: #### P RBC #### [facility] [address] [place] [address] Dr. Kayley Hatfield Hemoglobin (Bld) [Mass/Vol] 7.2 g/dL Critically low 12.0-16.0 [facility] Comment on above: Performed By: #### P RBC #### [facility] [address] [place] [address] Dr. Kayley Hatfield IG # 0.10 10e3/ul Critically high 0.00-0.03 [facility] Comment on above: Performed By: #### P RBC #### [facility] [address] [place] [address] Dr. Kayley Hatfield IG % 0.6 % Critically high 0.0-0.5 [facility] Comment on above: Performed By: #### P RBC #### [facility] [address] [place] [address] Dr. Kayley Hatfield LYMPH # 1.5 103/ul Normal 1.2-3.8 [facility] Comment on above: Performed By: #### P RBC #### [facility] [address] [address] [address] Kayley Hatfield Lymphocytes/100 WBC (Bld) 9.0 % Critically low 20.5-60.0 [facility] Comment on above: Performed By: #### P RBC #### [facility] [address] [address] [address] Kayley Hatfield MANUAL DIFF REQ NO Normal [facility] Comment on above: Performed By: #### P RBC #### [facility] [address] [address] [address] Kayley Hatfield MCH (RBC) [Entitic mass] 27.3 pg Normal 26.7-34.0 [facility] Comment on above: Performed By: #### P RBC #### [facility] [address] [place] [address] Dr. Kayley Hatfield MCHC (RBC) [Mass/Vol] 30.0 g/dL Normal 29.9-35.2 [facility] Comment on above: Performed By: #### P RBC #### [facility] [address] [place] [address] Dr. Kayley Hatfield MCV (RBC) [Entitic vol] 90.9 fL Normal 81.0-99.0 [facility] Comment on above: Performed By: #### P RBC #### [facility] [address] [place] [address] Dr. Kayley Hatfield MONO # 2.3 103/ul Critically high 0.3-0.8 [facility] Comment on above: Performed By: #### P RBC #### [facility] [address] [place] [address] Dr. Kayley Hatfield Monocytes/100 WBC (Bld) 13.8 % Critically high 1.7-12.0 [facility] Comment on above: Performed By: #### P RBC #### [facility] [address] [place] [address] Dr. Kayley Hatfield NEUT # 12.7 103/ul Critically high 1.4-6.5 [facility] Comment on above: Performed By: #### P RBC #### [facility] [address] [address] [address] Kayley Hatfield Neutrophils/100 WBC (Bld) 75.1 % Critically high 43.0-75.0 [facility] Comment on above: Performed By: #### P RBC #### [facility] [address] [address] [address] Kayley Hatfield Platelet mean volume (Bld) [Entitic vol] 8.9 fL Critically low 9.5-13.5 [facility] Comment on above: Performed By: #### P RBC #### [facility] [address] [address] [address] Kayley Hatfield PLT 782 103/ul Critically high 150-450 [facility] Comment on above: Performed By: #### P RBC #### [facility] [address] [place] [address] Dr. Kayley Hatfield RBC 2.64 106/ul Critically low 4.20-5.40 [facility] Comment on above: Performed By: #### P RBC #### [facility] [address] [address] [address] Kayley Hatfield WBC 16.9 103/ul Critically high 4.0-11.0 [facility] Comment on above: Performed By: #### P RBC #### [facility] [address] [place] [address] Dr. Kayley Hatfield PRBC LEUKOREDUCEDon 03-30-20 ABO and Rh group Nom (Bld) Cross Match Result Compatible Unit Blood Type O Pos Unit Number [id number] Status Information Transfused Product ID Red Blood Cells Product Code [id number] Cross Match Result Compatible Unit Blood Type O Pos Unit Number [id number] Status Information Transfused Product ID Red Blood Cells Product Code [id number] [facility] Comment on above: Performed By: #### P RBC #### [facility] [address] [address] [address] Kayley Hatfield PROF CHEM 8 (BAS METB)on Anion gap [Moles/Vol] 6.9 mmol/L Normal [facility] Comment on above: Performed By: #### P RBC #### [facility] [address] [address] [address] Kayley Hatfield Calcium [Mass/Vol] 8.7 mg/dL Normal 8.5-10.1 [facility] Comment on above: Performed By: #### P RBC #### [facility] [address] [address] [address] Kayley Hatfield Chloride [Moles/Vol] 101 mmol/L Normal 98-107 [facility] Comment on above: Performed By: #### P RBC #### [facility] [address] [address] [address] Kayley Hatfield CO2 [Moles/Vol] 33.3 mmol/L Critically high 21.0-32.0 [facility] Comment on above: Performed By: #### P RBC #### [facility] [address] [address] [address] Kayley Hatfield Creatinine [Mass/Vol] 0.83 mg/dL Normal 0.55-1.02 [facility] Comment on above: Performed By: #### P RBC #### [facility] [address] [address] [address] Kayley Hatfield EGFR-AF CAMEROONIAN >60 Normal >=60 [facility] Comment on above: Performed By: #### P RBC #### [facility] [address] [address] [address] Kayley Hatfield EGFR-NON AF CAMEROONIAN >60 Normal >=60 [facility] Comment on above: Performed By: #### P RBC #### [facility] [address] [address] [address] Kayley Hatfield Glucose [Mass/Vol] 94 mg/dL Normal 74-106 [facility] Comment on above: Performed By: #### P RBC #### [facility] [address] [address] [address] Kayley Hatfield Potassium [Moles/Vol] 4.2 mmol/L Normal 3.5-5.1 [facility] Comment on above: Performed By: #### P RBC #### [facility] [address] [address] [address] Kayley Hatfield Sodium [Moles/Vol] 137 mmol/L Normal 136-145 [facility] Comment on above: Performed By: #### P RBC #### [facility] [address] [place] [address] Dr. Kayley Hatfield Urea nitrogen [Mass/Vol] 15.0 mg/dL Normal 7.0-18.0 [facility] Comment on above: Performed By: #### P RBC #### [facility] [address] [place] [address] Dr. Kayley Hatfield Urea nitrogen/Creatinine [Mass ratio] 18.1 mg/mg Normal [facility] Comment on above: Performed By: #### P RBC #### [facility] [address] [place] [address] Dr. Kayley Hatfield PROTEIN ELECTROPHERESISon Albumin [Mass/Vol] 3.4 g/dL Normal 2.9-4.4 [facility] Comment on above: Performed By: #### P RTELEC #### [facility] [address] [place] [address] Dr. Kayley Hatfield Albumin/Globulin [Mass ratio] 1.3 {ratio} Normal 0.7-1.7 [facility] Comment on above: Performed By: #### P RTELEC #### [facility] [address] [place] [address] Dr. Kayley Hatfield Dvaxw-5-Emlzkpvj 0.3 g/dL Normal 0.0-0.4 [facility] Comment on above: Performed By: #### P RTELEC #### [facility] [address] [place] [address] Dr. Kayley Hatfield Ytdkt-0-Yxxgfntf 0.8 g/dL Normal 0.4-1.0 [facility] Comment on above: Performed By: #### P RTELEC #### [facility] [address] [place] [address] Dr. Kayley Hatfield Beta Globulin 1.0 g/dL Normal 0.7-1.3 [facility] Comment on above: Performed By: #### P RTELEC #### [facility] [address] [place] [address] Dr. Kayley Hatfield Gamma Globulin 0.5 g/dL Normal 0.4-1.8 [facility] Comment on above: Performed By: #### P RTELEC #### [facility] [address] [place] [address] Dr. Kayley Hatfield Globulin (S) [Mass/Vol] 2.6 g/dL Normal 2.2-3.9 [facility] Comment on above: Performed By: #### P RTELEC #### [facility] [address] [place] [address] Dr. Kayley Hatfield M-Sandip Not Observed Normal Not Observed [facility] Comment on above: Performed By: #### P RTELEC #### [facility] [address] [place] [address] Dr. Kayley Hatfield PDF . Normal [facility] Comment on above: Performed By: #### P RTELEC #### [facility] [address] [place] [address] Dr. Kayley Hatfield Please note: Comment Normal [facility] Comment on above: Result Comment: Prot ein electrophoresis scan will follow via computer, mail, or tar distributor operator delivery. Performed By: #### P RTELEC #### [facility] [address] [place] [address] Dr. Kayley Hatfield Protein [Mass/Vol] 6.0 g/dL Normal 6.0-8.5 [facility] Comment on above: Performed By: #### P RTELEC #### [facility] [address] [place] [address] Dr. Kayley Hatfield XR CHEST 1 Von [...] TYSHAWN MOORE Date: 2022-03-30 06:17 Normal [facility] CBC W MANUAL DIFFon 03-29-20 22 ANISOCYTOSIS 2+ Normal [facility] Comment on above: Performed By: #### C VDTBH #### [facility] [address] [place] [address] Dr. Kayley Hatfield ATYPICAL LYMPH # Normal [facility] Comment on above: Performed By: #### C VDTBH #### [facility] [address] [place] [address] Dr. Kayley Hatfield ATYPICAL LYMPH % Normal [facility] Comment on above: Performed By: #### C VDTBH #### [facility] [address] [place] [address] Dr. Kayley Hatfield BAND # 0.0 103/ul Normal 0.0-0.3 [facility] Comment on above: Performed By: #### C VDTBH #### [facility] [address] [place] [address] Dr. Kayley Hatfield BAND % 0 % Normal 0-5 [facility] Comment on above: Performed By: #### C VDTBH #### [facility] [address] [address] [address] Kayley Hatfield BASOM # 0.59 103/ul Critically high 0.00-0.10 [facility] Comment on above: Performed By: #### C VDTBH #### [facility] [address] [place] [address] Dr. Kayley Hatfield BASOM % 3.0 % Critically high 0.2-2.0 [facility] Comment on above: Performed By: #### C VDTBH #### [facility] [address] [place] [address] Dr. Kayley Hatfield BLAST # Normal [facility] Comment on above: Performed By: #### C VDTBH #### [facility] [address] [address] [address] Kayley Hatfield BLAST % Normal [facility] Comment on above: Performed By: #### C VDTBH #### [facility] [address] [place] [address] Dr. Kayley Hatfield CORRECTED WBC Normal 4.0-11.0 [facility] Comment on above: Performed By: #### C VDTBH #### [facility] [address] [place] [address] Dr. Kayley Hatfield EOS # 0.40 103/ul Normal 0.00-0.70 [facility] Comment on above: Performed By: #### C VDTBH #### [facility] [address] [place] [address] Dr. Kayley Hatfield EOS% 2.0 % Normal 0.9-7.0 [facility] Comment on above: Performed By: #### C VDTBH #### [facility] [address] [place] [address] Dr. Kayley Hatfield HCT 31.1 % Critically low 36.0-48.0 [facility] Comment on above: Performed By: #### C VDTBH #### [facility] [address] [place] [address] Dr. Kayley Hatfield HGB 9.7 g/dl Critically low 12.0-16.0 [facility] Comment on above: Performed By: #### C VDTBH #### [facility] [address] [place] [address] Dr. Kayley Hatfield HYPOCHROMASIA 1+ Normal [facility] Comment on above: Performed By: #### C VDTBH #### [facility] [address] [place] [address] Dr. Kayley Hatfield LYMPHM # 4.75 103/ul Critically high 1.20-3.80 [facility] Comment on above: Performed By: #### C VDTBH #### [facility] [address] [place] [address] Dr. Kayley Hatfield LYMPHM% 24.0 % Normal 20.5-60.0 [facility] Comment on above: Performed By: #### C VDTBH #### [facility] [address] [place] [address] Dr. Kayley Hatfield MCH 27.0 pg Normal 26.7-34.0 [facility] Comment on above: Performed By: #### C VDTBH #### [facility] [address] [place] [address] Dr. Kayley Hatfield MCHC 31.2 g/dl Normal 29.9-35.2 [facility] Comment on above: Performed By: #### C VDTBH #### [facility] [address] [place] [address] Dr. Kayley Hatfield MCV 86.6 fL Normal 81.0-99.0 [facility] Comment on above: Performed By: #### C VDTBH #### [facility] [address] [place] [address] Dr. Kayley Hatfield METAMYELOCYTE # [facility] Comment on above: Performed By: #### C VDTBH #### [facility] [address] [place] [address] Dr. Kayley Hatfield METAMYELOCYTE % Normal [facility] Comment on above: Performed By: #### C VDTBH #### [facility] [address] [place] [address] Dr. Kayley Hatfield MONOM# 0.59 103/ul Normal 0.30-0.80 [facility] Comment on above: Performed By: #### C VDTBH #### [facility] [address] [place] [address] Dr. Kayley Hatfield MONOM% 3.0 % Normal 1.7-12.0 [facility] Comment on above: Performed By: #### C VDTBH #### [facility] [address] [place] [address] Dr. Kayley Hatfield MPV 8.4 fL Critically low 9.5-13.5 [facility] Comment on above: Performed By: #### C VDTBH #### [facility] [address] [address] [address] Kayley Hatfield MYELOCYTE # Normal [facility] Comment on above: Performed By: #### C VDTBH #### [facility] [address] [address] [address] Kayley Hatfield MYELOCYTE % Normal [facility] Comment on above: Performed By: #### C VDTBH #### [facility] [address] [address] [address] Kayley Hatfield NRBC Normal [facility] Comment on above: Performed By: #### C VDTBH #### [facility] [address] [address] [address] Kayley Hatfield OVALOCYTES SLIGHT Normal [facility] Comment on above: Performed By: #### C VDTBH #### [facility] [address] [address] [address] Kayley Hatfield PLT 950 103/ul Critically high 150-450 [facility] Comment on above: Performed By: #### C VDTBH #### [facility] [address] [address] [address] Kayley Hatfield RBC 3.59 106/ul Critically low 4.20-5.40 [facility] Comment on above: Performed By: #### C VDTBH #### [facility] [address] [place] [address] Dr. Kayley Hatfield RDW 26.6 % Critically high 11.0-15.0 [facility] Comment on above: Performed By: #### C VDTBH #### [facility] [address] [address] [address] Kayley Hatfield SEG # 13.46 103/ul Critically high 1.40-6.50 [facility] Comment on above: Performed By: #### C VDTBH #### [facility] [address] [address] [address] Kayley Hatfield SEG % 68.0 % Normal 43.0-75.0 [facility] Comment on above: Performed By: #### C VDTBH #### [facility] [address] [address] [address] Kayley Hatfield WBC 19.8 103/ul Critically high 4.0-11.0 [facility] Comment on above: Performed By: #### C VDTB #### [facility] [address] [address] [address] Kayley Hatfield PROF CHEM 8 (BAS METB)on Anion gap [Moles/Vol] 8.6 mmol/L Normal [facility] Comment on above: Performed By: #### L DH #### [facility] [address] [address] [address] Kayley Hatfield Calcium [Mass/Vol] 8.9 mg/dL Normal 8.5-10.1 [facility] Comment on above: Performed By: #### L DH #### [facility] [address] [place] [address] Dr. Kayley Hatfield Chloride [Moles/Vol] 102 mmol/L Normal 98-107 [facility] Comment on above: Performed By: #### L DH #### [facility] [address] [place] [address] Dr. Kayley Hatfield CO2 [Moles/Vol] 34.3 mmol/L Critically high 21.0-32.0 [facility] Comment on above: Performed By: #### L DH #### [facility] [address] [place] [address] Dr. Kayley Hatfield Creatinine [Mass/Vol] 0.86 mg/dL Normal 0.55-1.02 [facility] Comment on above: Performed By: #### L DH #### [facility] [address] [place] [address] Dr. Kayley Hatfield EGFR-AF CAMEROONIAN >60 Normal >=60 [facility] Comment on above: Performed By: #### L DH #### [facility] [address] [place] [address] Dr. Kayley Hatfield EGFR-NON AF CAMEROONIAN >60 Normal >=60 [facility] Comment on above: Performed By: #### L DH #### [facility] [address] [address] [address] Kayley Hatfield Glucose [Mass/Vol] 102 mg/dL Normal 74-106 [facility] Comment on above: Performed By: #### L #### [facility] [address] [address] [address] Kayley Hatfield Potassium [Moles/Vol] 3.9 mmol/L Normal 3.5-5.1 [facility] Comment on above: Performed By: #### L #### [facility] [address] [address] [address] Kayley Hatfield Sodium [Moles/Vol] 141 mmol/L Normal 136-145 [facility] Comment on above: Performed By: #### L #### [facility] [address] [address] [address] Kayley Hatfield Urea nitrogen [Mass/Vol] 20.0 mg/dL Critically high 7.0-18.0 [facility] Comment on above: Performed By: #### L #### [facility] [address] [address] [address] Kayley Hatfield Urea nitrogen/Creatinine [Mass ratio] 23.3 mg/mg Normal [facility] Comment on above: Performed By: #### L #### [facility] [address] [address] [address] Kayley Hatfield XR CHEST 1 Von [...] MIGUE REYNOSO Date: 2022-03-29 13:26 Normal [facility] XR CHEST 1 V EXAMINATION: [...] MIGUE REYNOSO Date: 2022-03-29 11:37 Normal [facility] XR CHEST 1 V EXAMINATION: [...] MIGUE REYNOSO Date: 2022-03-29 07:32 Normal [facility] XR CHEST 1 V EXAM: XR [...] ASAEL ANAND Date: 2022-03-28 22:40 Normal [facility] CBC W MANUAL DIFFon 03-28-20 22 ANISOCYTOSIS 3+ Normal [facility] Comment on above: Performed By: #### C BCMAN #### [facility] [address] [place] [address] Dr. Kayley Hatfield ATYPICAL LYMPH # Normal [facility] Comment on above: Performed By: #### C BCMAN #### [facility] [address] [place] [address] Dr. Kayley Hatfield ATYPICAL LYMPH % Normal [facility] Comment on above: Performed By: #### C BCMAN #### [facility] [address] [place] [address] Dr. Kayley Hatfield BAND # 0.3 103/ul Normal 0.0-0.3 [facility] Comment on above: Performed By: #### C BCMAN #### [facility] [address] [place] [address] Dr. Kayley Hatfield BAND % 2 % Normal 0-5 [facility] Comment on above: Performed By: #### C BCMAN #### [facility] [address] [place] [address] Dr. Kayley Hatfield BASOM # 0.00 103/ul Normal 0.00-0.10 [facility] Comment on above: Performed By: #### C BCKATHY #### [facility] [address] [place] [address] Dr. Kayley Hatfield BASOM % 0.0 % Critically low 0.2-2.0 [facility] Comment on above: Performed By: #### C BCMAN #### [facility] [address] [place] [address] Dr. Kayley Hatfield BLAST # Normal [facility] Comment on above: Performed By: #### C BCMAN #### [facility] [address] [place] [address] Dr. Kayley Hatfield BLAST % Normal [facility] Comment on above: Performed By: #### C BCMAN #### [facility] [address] [place], [place] [id number] Dr. Kayley Hatfield CORRECTED WBC Normal 4.0-11.0 [facility] Comment on above: Performed By: #### C ALONZO #### [facility] [address] [address] [address] Kayley Hatfield EOS # 0.00 103/ul Normal 0.00-0.70 [facility] Comment on above: Performed By: #### C ALONZO #### [facility] [address] [address] [address] Kayley Hatfield EOS% 0.0 % Critically low 0.9-7.0 [facility] Comment on above: Performed By: #### C ALONZO #### [facility] [address] [place] [address] Dr. Kayley Hatfield HCT 23.6 % Critically low 36.0-48.0 [facility] Comment on above: Performed By: #### C ALONZO #### [facility] [address] [place] [address] Dr. Kayley Hatfield HGB 6.8 g/dl Critically low 12.0-16.0 [facility] Comment on above: Performed By: #### C ALONZO #### [facility] [address] [place] [address] Dr. Kayley Hatfield HYPOCHROMASIA 3+ Normal [facility] Comment on above: Performed By: #### C ALONZO #### [facility] [address] [place] [address] Dr. Kayley Hatfield LYMPHM # 1.17 103/ul Critically low 1.20-3.80 [facility] Comment on above: Performed By: #### C ALONZO #### [facility] [address] [place] [address] Dr. Kayley Hatfield LYMPHM% 7.0 % Critically low 20.5-60.0 [facility] Comment on above: Performed By: #### C ALONZO #### [facility] [address] [place] [address] Dr. Kayley Hatfield MCH 24.6 pg Critically low 26.7-34.0 [facility] Comment on above: Performed By: #### C ALONZO #### [facility] [address] [address] [address] Kayley Hatfield MCHC 28.8 g/dl Critically low 29.9-35.2 [facility] Comment on above: Performed By: #### C ALONZO #### [facility] [address] [address] [address] Kayley Hatfield MCV 85.5 fL Normal 81.0-99.0 [facility] Comment on above: Performed By: #### C ALONZO #### [facility] [address] [place] [address] Dr. Kayley Hatfield METAMYELOCYTE # [facility] Comment on above: Performed By: #### C ALONZO #### [facility] [address] [place] [address] Dr. Kayley Hatfield METAMYELOCYTE % Normal [facility] Comment on above: Performed By: #### C ALONZO #### [facility] [address] [place] [address] Dr. Kayley Hatfield MONOM# 0.50 103/ul Normal 0.30-0.80 [facility] Comment on above: Performed By: #### C ALONZO #### [facility] [address] [place] [address] Dr. Kayley Hatfield MONOM% 3.0 % Normal 1.7-12.0 [facility] Comment on above: Performed By: #### C ALONZO #### [facility] [address] [place] [address] Dr. Kayley Hatfield MPV 8.6 fL Critically low 9.5-13.5 [facility] Comment on above: Performed By: #### C ALONZO #### [facility] [address] [place] [address] Dr. Kayley Hatfield MYELOCYTE # Normal [facility] Comment on above: Performed By: #### C ALONZO #### [facility] [address] [place] [address] Dr. Kayley Haftield MYELOCYTE % Normal [facility] Comment on above: Performed By: #### C ALONZO #### [facility] [address] [address] [address] Kayley Hatfield NRBC Normal [facility] Comment on above: Performed By: #### C ALONZO #### [facility] [address] [address] [address] Kayley Hatfield OVALOCYTES SLIGHT Normal [facility] Comment on above: Performed By: #### C ALONZO #### [facility] [address] [address] [address] Kayley Hatfield PLT 1384 103/ul Critically high 150-450 [facility] Comment on above: Performed By: #### C ALONZO #### [facility] [address] [address] [address] Kayley Hatfield RBC 2.76 106/ul Critically low 4.20-5.40 [facility] Comment on above: Performed By: #### C AOLNZO #### [facility] [address] [address] [address] Kayley Hatfield RDW 0.0 % Critically low 11.0-15.0 [facility] Comment on above: Performed By: #### C ALONZO #### [facility] [address] [address] [address] Kayley Hatfield SEG # 14.70 103/ul Critically high 1.40-6.50 [facility] Comment on above: Performed By: #### C ALONZO #### [facility] [address] [address] [address] Kayley Hatfield SEG % 88.0 % Critically high 43.0-75.0 [facility] Comment on above: Performed By: #### C ALONZO #### [facility] [address] [address] [address] Kayley Hatfield WBC 16.7 103/ul Critically high 4.0-11.0 [facility] Comment on above: Performed By: #### C ALONZO #### [facility] [address] [address] [address] Kayley Hatfield CRPon 03-28-2022 CRP [Mass/Vol] mg/L Normal <=1.0 [facility] Comment on above: Performed By: #### H GBHCT #### [facility] [address] [place] [address] Dr. Kayley Hatfield Covid-19 PCR ([facility])on 03-10 SARS-CoV-2 (COVID-19) RNA ELBA+probe Ql (Unsp spec) Not detected Normal NOT DETECTED [facility] Comment on above: Result Comment: When [...] for this test is supported by the Alter[employer] Hand of Health and Human Service's declaration that [...] used). Performed By: #### P RBC #### [facility] [address] [place] [address] Dr. Kayley Hatfield ER URINE PROFILEon Bilirubin Ql (U) Negative Normal NEGATIVE [facility] Comment on above: Performed By: #### P RBC #### [facility] [address] [place] [address] Dr. Kayley Hatfield Clarity (U) CLEAR Normal CLEAR [facility] Comment on above: Performed By: #### P RBC #### [facility] [address] [place] [address] Dr. Kayley Hatfield Color (U) LT. YELLOW Normal YELLOW [facility] Comment on above: Performed By: #### P RBC #### [facility] [address] [place] [address] Dr. Kayley [place] A micrscopic examination will be performed if indicated. Normal [facility] Comment on above: Performed By: #### P RBC #### [facility] [address] [place] [address] Dr. Kayley Hatfield Glucose Ql (U) Negative Normal NEGATIVE [facility] Comment on above: Performed By: #### P RBC #### [facility] [address] [place] [address] Dr. Kayley Hatfield Hemoglobin Ql (U) Negative Normal NEGATIVE [facility] Comment on above: Performed By: #### P RBC #### [facility] [address] [place] [address] Dr. Kayley Hatfield Ketones Ql (U) Negative Normal NEGATIVE [facility] Comment on above: Performed By: #### P RBC #### [facility] [address] [place] [address] Dr. Kayley Hatfield LEUKOCYTES Negative Normal NEGATIVE [facility] Comment on above: Performed By: #### P RBC #### [facility] [address] [place] [address] Dr. Kayley Hatfield Nitrite Ql (U) Negative Normal NEGATIVE [facility] Comment on above: Performed By: #### P RBC #### [facility] [address] [place] [address] Dr. Kayley Hatfield pH (U) 6.0 [pH] Normal 5-9 [facility] Comment on above: Performed By: #### P RBC #### [facility] [address] [place] [address] Dr. Kayley Hatfield SPEC GRAVITY <=1.005 Abnormal 1.005-<=1.025 [facility] Comment on above: Performed By: #### P RBC #### [facility] [address] [place] [address] Dr. Kayley Hatfield UA PROTEIN Negative Normal NEGATIVE/ TRACE [facility] Comment on above: Performed By: #### P RBC #### [facility] [address] [place] [address] Dr. Kayley Hatfield UR MICRO IND NOT INDICATED Normal [facility] Comment on above: Performed By: #### P RBC #### [facility] [address] [address] [address] Kayley Hatfield Urobilinogen Qn (U) 0.2 {Lu'U}/dL Normal 0.2 - 1. 0 [facility] Comment on above: Performed By: #### P RBC #### [facility] [address] [address] [address] Kayley Hatfield FERRITINon 03-28-2022 Ferritin [Mass/Vol] 61.0 ng/mL Normal 8.0-252.0 [facility] Comment on above: Performed By: #### P RBC #### [facility] [address] [place] [address] Dr. Kayley Hatfield GLYCOHEMOGLOBIN A1Con 2021 ADA RECOMMENDATION SEE BELOW Normal [facility] Comment on above: Result Comment: ADA RECOMMENDED LIMIT 4.0 - 6.0 ADA THERAPEUTIC TARGET < 7.0 ACTION SUGGESTED > 7.0 Performed By: #### P RBC #### [facility] [address] [place] [address] Dr. Kayley Hatfield Glucose [Mass/Vol] 114 mg/dL Normal [facility] Comment on above: Performed By: #### P RBC #### [facility] [address] [place] [address] Dr. Kayley Hatfield HbA1c (Bld) [Mass fraction] 5.6 % Normal 4.5-6.2 [facility] Comment on above: Performed By: #### P RBC #### [facility] [address] [address] [address] Kayley Hatfield IRONon 03-28-2022 Iron [Mass/Vol] 37.0 ug/dL Critically low 50.0-170.0 [facility] Comment on above: Performed By: #### P RBC #### [facility] [address] [place] [address] Dr. Kayley Hatfield LDHon 03-28-2022 LDH 174 U/L Normal 81-234 [facility] Comment on above: Performed By: #### L DH #### [facility] [address] [address] [address] Kayley Hatfield LIPID PROFILEon 03-28-2022 CHOL-HDL RATIO NORM SEE BELOW Normal [facility] Comment on above: Result Comment: 3.3 - 4.4 LOW RISK 4.4 - 7.1 AVERAGE RISK 7.1 - 11.0 MODERATE RISK >11.0 HIGH RISK Performed By: #### P RBC #### [facility] [address] [address] [address] Kayley Hatfield Cholesterol [Mass/Vol] 193 mg/dL Normal <=200 [facility] Comment on above: Performed By: #### P RBC #### [facility] [address] [address] [address] Kayley Hatfield Cholesterol in HDL [Mass/Vol] 95 mg/dL Critically high 40-60 [facility] Comment on above: Performed By: #### P RBC #### [facility] [address] [address] [address] Kalyey Hatfield Cholesterol in LDL [Mass/Vol] 74.8 mg/dL Normal [facility] Comment on above: Performed By: #### P RBC #### [facility] [address] [address] [address] Kayley Hatfield Cholesterol.total/Cho lesterol in HDL [Mass ratio] 2.0 {ratio} Normal [facility] Comment on above: Performed By: #### P RBC #### [facility] [address] [address] [address] Kayley Hatfield HDL NORMAL > or = 60 mg/dl - LO W CARDIOVASCULAR RISK <40 mg/dl - HIGH CARDIOVASCULAR RISK Normal [facility] Comment on above: Performed By: #### P RBC #### [facility] [address] [address] [address] Kayley Hatfield LDL CALC NORMAL SEE BELOW [facility] Comment on above: Result Comment: <100 mg/dl OPTIMAL 100 - 129 mg/dl NEAR OR ABOVE OPTIMAL 130 - 159 mg/dl BORDERLINE HIGH 160 - 189 mg/dl HIGH >190 mg/dl VERY HIGH Performed By: #### P RBC #### [facility] [address] [address] [address] Kayley Hatfield Triglyceride [Mass/Vol] 116 mg/dL Normal <=150 [facility] Comment on above: Performed By: #### P RBC #### [facility] [address] [place] [address] Dr. Kayley Hatfield VLDL CALC 23.2 mg/dL Normal [facility] Comment on above: Performed By: #### P RBC #### [facility] [address] [place] [address] Dr. Kayley Hatfield LIVER PROFILEon 03-28-2022 Albumin [Mass/Vol] 3.2 g/dL Critically low 3.4-5.0 [facility] Comment on above: Performed By: #### P RBC #### [facility] [address] [place] [address] Dr. Kayley Hatfield Albumin/Globulin [Mass ratio] 1.0 {ratio} Normal [facility] Comment on above: Performed By: #### P RBC #### [facility] [address] [place] [address] Dr. Kayley Hatfield ALP [Catalytic activity/Vol] 56 U/L Normal 46-116 [facility] Comment on above: Performed By: #### P RBC #### [facility] [address] [place] [address] Dr. Kayley Hatfield ALT [Catalytic activity/Vol] 32 U/L Normal 14-59 [facility] Comment on above: Performed By: #### P RBC #### [facility] [address] [place] [address] Dr. Kayley Hatfield AST [Catalytic activity/Vol] 18 U/L Normal 15-37 [facility] Comment on above: Performed By: #### P RBC #### [facility] [address] [place] [address] Dr. Kayley Hatfield BILI, CONJUGATED 0.1 mg/dL Normal 0.0-0.2 [facility] Comment on above: Performed By: #### P RBC #### [facility] [address] [place] [address] Dr. Kayley Hatfield Bilirubin [Mass/Vol] 0.2 mg/dL Normal 0.2-1.0 [facility] Comment on above: Performed By: #### P RBC #### [facility] [address] [place] [address] Dr. Kayley Hatfield Globulin (S) [Mass/Vol] 3.1 g/dL Normal [facility] Comment on above: Performed By: #### P RBC #### [facility] [address] [place] [address] Dr. Kayley Hatfield Protein [Mass/Vol] 6.3 g/dL Critically low 6.4-8.2 [facility] Comment on above: Performed By: #### P RBC #### [facility] [address] [place] [address] Dr. Kayley Hatfield MAGNESIUMon 03-28-2022 Magnesium [Mass/Vol] 1.8 mg/dL Normal 1.8-2.4 [facility] Comment on above: Performed By: #### H GBHCT #### [facility] [address] [place] [address] Dr. Kayley Hatfield PHOSPHORUSon 03-28-2022 Phosphate [Mass/Vol] 4.4 mg/dL Normal 2.6-4.7 [facility] Comment on above: Performed By: #### O BSCRN #### [facility] [address] [place] [address] Dr. Kayley Hatfield PROF CHEM 8 (BAS METB)on Anion gap [Moles/Vol] 10.1 mmol/L Normal [facility] Comment on above: Performed By: #### P RBC #### [facility] [address] [place] [address] Dr. Kayley Hatfield Calcium [Mass/Vol] 9.1 mg/dL Normal 8.5-10.1 [facility] Comment on above: Performed By: #### P RBC #### [facility] [address] [place] [address] Dr. Kayley Hatfield Chloride [Moles/Vol] 101 mmol/L Normal 98-107 [facility] Comment on above: Performed By: #### P RBC #### [facility] [address] [place] [address] Dr. Kayley Hatfield CO2 [Moles/Vol] 32.6 mmol/L Critically high 21.0-32.0 [facility] Comment on above: Performed By: #### P RBC #### [facility] [address] [address] [address] Kayley Hatfield Creatinine [Mass/Vol] 0.90 mg/dL Normal 0.55-1.02 [facility] Comment on above: Performed By: #### P RBC #### [facility] [address] [address] [address] Kayley Hatfield EGFR-AF CAMEROONIAN >60 Normal >=60 [facility] Comment on above: Performed By: #### P RBC #### [facility] [address] [address] [address] Kayley Hatfield EGFR-NON AF CAMEROONIAN >60 Normal >=60 [facility] Comment on above: Performed By: #### P RBC #### [facility] [address] [address] [address] Kayley Hatfield Glucose [Mass/Vol] 161 mg/dL Critically high 74-106 [facility] Comment on above: Performed By: #### P RBC #### [facility] [address] [address] [address] Kayley Hatfield Potassium [Moles/Vol] 4.7 mmol/L Normal 3.5-5.1 [facility] Comment on above: Performed By: #### P RBC #### [facility] [address] [address] [address] Kayley Hatfield Sodium [Moles/Vol] 139 mmol/L Normal 136-145 [facility] Comment on above: Performed By: #### P RBC #### [facility] [address] [address] [address] Kayley Hatfield Urea nitrogen [Mass/Vol] 15.0 mg/dL Normal 7.0-18.0 [facility] Comment on above: Performed By: #### P RBC #### [facility] [address] [address] [address] Kayley Hatfield Urea nitrogen/Creatinine [Mass ratio] 16.7 mg/mg Normal [facility] Comment on above: Performed By: #### P RBC #### [facility] [address] [place] [address] Dr. Kayley Hatfield RETICULOCYTEon 03-28-2022 RETIC 4.65 % Critically high 0.60-3.10 [facility] Comment on above: Performed By: #### L DH #### [facility] [address] [place] [address] Dr. Kayley Hatfield SED RATE WESTERGRENon 2021 SED RATE 12 mm/hr Normal <=30 [facility] Comment on above: Performed By: #### P RTELEC #### [facility] [address] [place] [address] Dr. Kayley Hatfield TSHon 03-28-2022 TSH 0.922 uIU/mL Normal 0.358-3.740 [facility] Comment on above: Performed By: #### P RBC #### [facility] [address] [place] [address] Dr. Kayley Hatfield TYPE AND SCREENon 03-28-2022 TYPE AND SCREEN Negative Normal [facility] Comment on above: Performed By: #### C VDTBH #### [facility] [address] [place] [address] Dr. Kayley Hatfield VIT B12 AND FOLATEon 022 Cobalamin (Vitamin B12) [Mass/Vol] 490.0 pg/mL Normal 193.0-986.0 [facility] Comment on above: Performed By: #### L DH #### [facility] [address] [place] [address] Dr. Kayley Hatfield FOLATE 14.00 ng/mL Normal 8.60-58.90 [facility] Comment on above: Performed By: #### L DH #### [facility] [address] [place] [address] Dr. Kayley Hatfield VITAMIN D 25 OHon 03-28-2022 VIT D 25-OH 41.5 ng/mL Normal [facility] Comment on above: Performed By: #### O BSCRN #### [facility] [address] [place], [place] [address] Dr. Kayley Hatfield VIT D RANGES SEE BELOW Normal [facility] Comment on above: Result Comment: <20 ng/mL Vit D deficient 20 - <30 ng/mL Vit D insufficient 30 - 100 ng/mL Vit D sufficient >100 ng/mL Potential Toxicity Performed By: #### O BSCRN #### [facility] [address] [place], [place] [address] Dr. Kayley Hatfield XR CHEST 1 Von [...] STEPHEN ARAIZA Date: 2022-03-28 21:37 Normal [facility] BASIC METABOLIC PANELon 09-0 Calcium [Mass/Vol] 8.9 mg/dL Normal 8.6-10.[address] [facility] Comment on above: Order Comment: No: D o not add to previous draw Performed By: #### 3 5200, 04986, 36001, 06665 #### [facility] [address] [place] [address], [facility] Chloride [Moles/Vol] 97 mmol/L Low 98-[address] [facility] Comment on above: Order Comment: No: D o not add to previous draw Performed By: #### 3 5200, 52673, 20698, 89399 #### [facility] [address] [place] [address], [facility] CO2 [Moles/Vol] 35 mmol/L High 21-[address] [facility] Comment on above: Order Comment: No: D o not add to previous draw Performed By: #### 3 0, 01470, 57936, 54339 #### [facility] [address] [place] [address], [facility] Creatinine [Mass/Vol] 0.65 mg/dL Normal 0.60-1.[address] [facility] Comment on above: Order Comment: No: D o not add to previous draw Performed By: #### 3 5200, 54586, 73118, 53667 #### [facility] [address] [place] [address], [facility] GFR/1.73 sq M.predicted among non-blacks MDRD (S/P/Bld) [Vol rate/Area] mL/min/{1.73_m2} Normal >[address] [facility] Comment on above: Order Comment: No: D o not add to previous draw Result Comment: [facility]'s estimated glomerular filtration rate (eGFR) will [...] of individuals. Performed By: #### 3 5200, 51292, 47181, 85295 #### [facility] [address] [place] [address], [facility] Glucose [Mass/Vol] 161 mg/dL High 70-[address] [facility] Comment on above: Order Comment: No: D o not add to previous draw Performed By: #### 3 5200, 41727, 12383, 71037 #### [facility] [address] [place] [address], [place] Potassium [Moles/Vol] 3.9 mmol/L Normal 3.5-5.[address] [facility] Comment on above: Order Comment: No: D o not add to previous draw Performed By: #### 3 5200, 87276, 44386, 09678 #### [facility] [address] [place] [address], [place] Sodium [Moles/Vol] 136 mmol/L Normal 136-[address] [facility] Comment on above: Order Comment: No: D o not add to previous draw Performed By: #### 3 5200, 25731, 95097, 70958 #### [facility] [address] [place] [address], [place] Urea nitrogen [Mass/Vol] 16 mg/dL Normal 7-[address] [facility] Comment on above: Order Comment: No: D o not add to previous draw Performed By: #### 3 5200, 81656, 28479, 05780 #### [facility] [address] [place] [address], [place] CBC COMPLETE BLOOD COUNTon 0 03-15-2022 Hematocrit (Bld) [Volume fraction] 28.2 % Low 36.0-45.[address] [facility] Comment on above: Order Comment: No: D o not add to previous draw Performed By: #### 3 5200 #### [facility] [address] [place] [address], [place] Hemoglobin (Bld) [Mass/Vol] 8.3 g/dL Low 12.0-15.[address] [facility] Comment on above: Order Comment: No: D o not add to previous draw Performed By: #### 3 5200 #### [facility] [address] [place] [address], [place] MCH (RBC) [Entitic mass] 22.9 pg Low 27.0-33.[address] [facility] Comment on above: Order Comment: No: D o not add to previous draw Performed By: #### 3 5200 #### [facility] [address] [facility]. [address] MCHC (RBC) [Mass/Vol] 29.4 g/dL Low 32.0-35.[address] [facility] Comment on above: Order Comment: No: D o not add to previous draw Performed By: #### 3 5200 #### [facility] [address] MCV (RBC) [Entitic vol] 77.9 fL Low 82.0-98.[address] [facility] Comment on above: Order Comment: No: D o not add to previous draw Performed By: #### 3 5200 #### [facility] [address] Nucleated RBC/100 WBC (Bld) [Ratio] 0 % Normal 0-[address] [facility] Comment on above: Order Comment: No: D o not add to previous draw Performed By: #### 3 5200 #### [facility] [address] [facility] [place] [address], [facility] PLAT CNT 221 10*3/uL Normal 150-[address] [facility] Comment on above: Order Comment: No: D o not add to previous draw Performed By: #### 3 5200 #### [facility] [address] RBC (Bld) [#/Vol] 3.62 10*6/uL Low 3.80-5.[address] [facility] Comment on above: Order Comment: No: D o not add to previous draw Performed By: #### 3 5200 #### [facility] [address] RDW ---- Normal 11.5-15.[address] [facility] Comment on above: Order Comment: No: D o not add to previous draw Result Comment: Prev ious RDW was unable to be calculated Performed By: #### 3 5200 #### [facility] [address] [place] [address], [place] WBC (Bld) [#/Vol] 11.88 10*3/uL High 4.00-10.[address] [facility] Comment on above: Order Comment: No: D o not add to previous draw Performed By: #### 3 5200 #### [facility] [address] [place] [address], [place] POC GLUCOSE LABon 03-15-2022 Glucose [Mass/Vol] 109 mg/dL High 70-[address] [facility] Comment on above: Performed By: #### 8 5499 ####[facility] [place] [address], [place] POC GLUCOSE LABon 03-14-2022 Glucose [Mass/Vol] 278 mg/dL High 70-[address] [facility] Comment on above: Performed By: #### 8 5499 ####[facility] [place] [address], [place] Glucose [Mass/Vol] 195 mg/dL High 70-[address] [facility] Comment on above: Performed By: #### 8 5499 ####[facility] [place] [address], [place] Glucose [Mass/Vol] 114 mg/dL High 70-[address] [facility] Comment on above: Performed By: #### 8 5499 ####[facility] [place] [address], [place] Glucose [Mass/Vol] 113 mg/dL High 70-[address] [facility] Comment on above: Performed By: #### 3 5200 #### [facility] [address] [place] [address], [place] PORTABLE CHEST 1 VIEWon 09-0 PORTABLE CHEST 1 VIEW [facility] Department of Radiology [address] [place] [address] Patient Name: LISE CANALES : 1955 Sex: F Age: Race: White Pt. Location: [id number] Patient Status: I Ordered Date: 03/14/2022 2:35:00 [...] chest. Electronically signed: Tyshawn Tapia. Transcribed by: [email or web address], User Resident: Electronically Signed by: TYSHAWN TAPIA @ 03/14/2022 03:[address] [facility] Comment on above: Order Comment: Check Chest Tube Position, S/P Chest tube DC'd PORTABLE CHEST 1 VIEW [facility] Department of Radiology [address] [place] [address] Patient Name: LISE CANALES : 1955 Sex: F Age: Race: White Pt. Location: [id number] Patient Status: I Ordered Date: 03/14/2022 6:50:00 [...] pneumothorax. Electronically signed: Tyshawn Tapia. Transcribed by: [email or web address], User Resident: Electronically Signed by: TYSHAWN TAPIA @ 03/14/2022 02:[address] [facility] Comment on above: Order Comment: Check Chest Tube Position, S/P Chest tube DC'd POC GLUCOSE LABon 03-13-2022 Glucose [Mass/Vol] 282 mg/dL High 70-[address] [facility] Comment on above: Performed By: #### 8 5499 ####[facility] [place] [address], [facility] Glucose [Mass/Vol] 163 mg/dL High 70-[address] [facility] Comment on above: Performed By: #### 8 5499 ####[facility] [place] [address], [facility] Glucose [Mass/Vol] 149 mg/dL High 70-[address] [facility] Comment on above: Performed By: #### 3 5200 #### [facility] [address] [place] [address], [facility] Glucose [Mass/Vol] 149 mg/dL High 70-100 [facility] Comment on above: Performed By: #### 8 5499 ####[facility] [place] [address], [facility] PORTABLE CHEST 1 VIEWon PORTABLE CHEST 1 VIEW [facility] Department of Radiology [address] [place] [id number] Patient Name: LISE CANALES : 1955 Sex: F Age: Race: White Pt. Location: [id number] Patient Status: I Ordered Date: 03/13/2022 4:15:00 [...] morning Electronically signed: Avinash Mckay. Transcribed by: [email or web address], User Resident: Electronically Signed by: AVINASH MCKAY @ 03/13/2022 06:[address] [facility] Comment on above: Order Comment: Check Chest Tube Position, S/P Chest tube DC'd PORTABLE CHEST 1 VIEW [facility] Department of Radiology [address] [place] [id number] Patient Name: LISE CANALES : 1955 Sex: F Age: Race: White Pt. Location: [address] [place] [address] Patient Status: I Ordered Date: 03/13/2022 6:50:00 [...] congestion. Electronically signed: Tyshawn Tapia. Transcribed by: [email or web address], User Resident: Electronically Signed by: TYSHAWN TAPIA @ 03/13/2022 08:[address] [facility] Comment on above: Order Comment: Evalu ate for Aspiration POTASSIUM BLOODon 03-13-2022 Potassium [Moles/Vol] 4.5 mmol/L Normal 3.5-5.[address] [facility] Comment on above: Order Comment: No: D o not add to previous draw Performed By: #### 3 5200 #### [facility] [address] [place] [address], [facility] BASIC METABOLIC PANELon Calcium [Mass/Vol] 9.4 mg/dL Normal 8.6-10.[address] [facility] Comment on above: Order Comment: Check Chest Tube Position, S/P Chest tube DC'd Performed By: #### 0 0071 ####[facility] [place] [address], [facility] Chloride [Moles/Vol] 98 mmol/L Normal 98-[address] [facility] Comment on above: Order Comment: Check Chest Tube Position, S/P Chest tube DC'd Performed By: #### 0 0071 ####[facility] [facility] [place] [address], [facility] CO2 [Moles/Vol] 34 mmol/L High 21-[address] [facility] Comment on above: Order Comment: Check Chest Tube Position, S/P Chest tube DC'd Performed By: #### 0 0071 ####[facility] [facility] [place] [address], [facility] Creatinine [Mass/Vol] 0.56 mg/dL Low 0.60-1.[address] [facility] Comment on above: Order Comment: Check Chest Tube Position, S/P Chest tube DC'd Performed By: #### 0 0071 ####[place] [address] GFR/1.73 sq M.predicted among non-blacks MDRD (S/P/Bld) [Vol rate/Area] mL/min/{1.73_m2} Normal >[address] [facility] Comment on above: Order Comment: Check Chest Tube Position, S/P Chest tube DC'd Result Comment: [facility]'s estimated glomerular filtration rate (eGFR) will [...] #### 0 0071 ####[facility] [facility] [place] [address], [facility] Glucose [Mass/Vol] 114 mg/dL High 70-[address] [facility] Comment on above: Order Comment: Check Chest Tube Position, S/P Chest tube DC'd Performed By: #### 0 0071 ####[facility] [place] [address], [facility] Potassium [Moles/Vol] 3.3 mmol/L Low 3.5-5.[address] [facility] Comment on above: Order Comment: Check Chest Tube Position, S/P Chest tube DC'd Performed By: #### 0 0071 ####[facility] [place] [address], [facility] Sodium [Moles/Vol] 140 mmol/L Normal 136-[address] [facility] Comment on above: Order Comment: Check Chest Tube Position, S/P Chest tube DC'd Performed By: #### 0 0071 ####[facility] Urea nitrogen [Mass/Vol] 9 mg/dL Normal 7-[address] [facility] Comment on above: Order Comment: Check Chest Tube Position, S/P Chest tube DC'd Performed By: #### 0 0071 ####[facility] CBC COMPLETE BLOOD COUNTon 0 - Hematocrit (Bld) [Volume fraction] 35.2 % Low 36.0-45.[address] [facility] Comment on above: Order Comment: No: D o not add to previous draw Performed By: #### 3 5200 #### [facility] [address] [place] [address], [facility] Hemoglobin (Bld) [Mass/Vol] 10.1 g/dL Low 12.0-15.[address] [facility] Comment on above: Order Comment: No: D o not add to previous draw Performed By: #### 3 5200 #### [facility] [address] [place] [address], [facility] IMM PLATELET FRAC 3.6 % Normal 0.8-6.[address] [facility] Comment on above: Order Comment: No: D o not add to previous draw Performed By: #### 3 5200 #### [facility] [address] [place] [address], [facility] MCH (RBC) [Entitic mass] 21.9 pg Low 27.0-33.[address] [facility] Comment on above: Order Comment: No: D o not add to previous draw Performed By: #### 3 5200 #### [facility] [address] [place] [address], [facility] MCHC (RBC) [Mass/Vol] 28.7 g/dL Low 32.0-35.[address] [facility] Comment on above: Order Comment: No: D o not add to previous draw Performed By: #### 3 5200 #### [facility] [address] [place] [address], [facility] MCV (RBC) [Entitic vol] 76.2 fL Low 82.0-98.[address] [facility] Comment on above: Order Comment: No: D o not add to previous draw Performed By: #### 3 5200 #### [facility] [address] [facility]. [address] Nucleated RBC/100 WBC (Bld) [Ratio] 0 % Normal 0-[address] [facility] Comment on above: Order Comment: No: D o not add to previous draw Performed By: #### 3 5200 #### [facility] [address] [facility] [place] [address], [facility] PLAT CNT 129 10*3/uL Low 150-[address] [facility] Comment on above: Order Comment: No: D o not add to previous draw Performed By: #### 3 5200 #### [facility] [address] [facility] [place] [address], [facility] RBC (Bld) [#/Vol] 4.62 10*6/uL Normal 3.80-5.[address] [facility] Comment on above: Order Comment: No: D o not add to previous draw Performed By: #### 3 5200 #### [facility] [address] [place] [address], [facility] RDW Unable to Calculate Normal 11.5-15.[address] [facility] Comment on above: Order Comment: No: D o not add to previous draw Performed By: #### 3 5200 #### [facility] [address] [place] [address], [facility] WBC (Bld) [#/Vol] 11.72 10*3/uL High 4.00-10.[address] [facility] Comment on above: Order Comment: No: D o not add to previous draw Performed By: #### 3 5200 #### [facility] [address] [facility] [place] [address], [facility] POC GLUCOSE LABon 03-12-2022 Glucose [Mass/Vol] 252 mg/dL High 70-[address] [facility] Comment on above: Performed By: #### 3 5200 #### [facility] [address] [facility] [place] [address], [facility] POC GLUCOSE LABon 03-11-2022 Glucose [Mass/Vol] 121 mg/dL High 70-[address] [facility] Comment on above: Performed By: #### 8 5499 ####[facility] [facility] [place] [address], [facility] Glucose [Mass/Vol] 122 mg/dL High 70-[address] [facility] Comment on above: Performed By: #### 3 5200 #### [facility] [address] [facility] [place] [address], [facility] Glucose [Mass/Vol] 86 mg/dL Normal 70-[address] [facility] Comment on above: Performed By: #### 3 5200 #### [facility] [address] [place] [address], [facility] PORTABLE CHEST 1 VIEWon 09-0 PORTABLE CHEST 1 VIEW [facility] Department of Radiology [address] [place] [address] Patient Name: LISE CANALES : 1955 Sex: F Age: Race: White Pt. Location: [id number] Patient Status: I Ordered Date: 03/11/2022 3:25:00 [...] abnormalities Electronically signed: Avinash Mckay. Transcribed by: [email or web address], User Resident: Electronically Signed by: AVINASH MCKAY @ 03/11/2022 06:[address] [facility] Comment on above: Order Comment: Evalu ate for Atelectasis CBC COMPLETE BLOOD COUNTon 0 03-10-2022 Erythrocyte distribution width (RBC) [Ratio] 29.9 % High 11.5-15.[address] [facility] Comment on above: Order Comment: No: D o not add to previous draw Performed By: #### 3 5200 #### [facility] [address] [facility] [place] [address], [facility] Hematocrit (Bld) [Volume fraction] 32.2 % Low 36.0-45.[address] [facility] Comment on above: Order Comment: No: D o not add to previous draw Performed By: #### 3 5200 #### [facility] [address] [place] [address], [facility] Hemoglobin (Bld) [Mass/Vol] 9.2 g/dL Low 12.0-15.[address] [facility] Comment on above: Order Comment: No: D o not add to previous draw Performed By: #### 3 5200 #### [facility] [address] [facility] [place] [address], [facility] IMM PLATELET FRAC 3.4 % Normal 0.8-6.[address] [facility] Comment on above: Order Comment: No: D o not add to previous draw Performed By: #### 3 5200 #### [facility] [address] [facility] [place] [address], [facility] MCH (RBC) [Entitic mass] 21.9 pg Low 27.0-33.[address] [facility] Comment on above: Order Comment: No: D o not add to previous draw Performed By: #### 3 5200 #### [facility] [address] [facility] [place] [id number], [facility] MCHC (RBC) [Mass/Vol] 28.6 g/dL Low 32.0-35.[address] [facility] Comment on above: Order Comment: No: D o not add to previous draw Performed By: #### 3 5200 #### [facility] [address] [place] [address], [facility] MCV (RBC) [Entitic vol] 76.7 fL Low 82.0-98.[address] [facility] Comment on above: Order Comment: No: D o not add to previous draw Performed By: #### 3 5200 #### [facility] [address] [place] [address], [facility] Nucleated RBC/100 WBC (Bld) [Ratio] 0 % Normal 0-[address] [facility] Comment on above: Order Comment: No: D o not add to previous draw Performed By: #### 3 5200 #### [facility] [address] [place] [address], [facility] PLAT CNT 124 10*3/uL Low 150-[address] [facility] Comment on above: Order Comment: No: D o not add to previous draw Performed By: #### 3 5200 #### [facility] [address] [place] [address], [facility] RBC (Bld) [#/Vol] 4.20 10*6/uL Normal 3.80-5.[address] [facility] Comment on above: Order Comment: No: D o not add to previous draw Performed By: #### 3 5200 #### [facility] [address] [place] [address], [facility] WBC (Bld) [#/Vol] 12.68 10*3/uL High 4.00-10.[address] [facility] Comment on above: Order Comment: No: D o not add to previous draw Performed By: #### 3 5200 #### [facility] [address] [place] [address], [facility] HEMOGLOBIN A1Con 03-10-2022 Glucose [Moles/Vol] 143 mmol/L Normal [facility] Comment on above: Order Comment: No: D o not add to previous draw Result Comment: Resu lt changed by BSHORT on 03/10/2022 13:15. The previous value was 140. Performed By: #### 3 1791 #### [facility] [address] [place] [address], [facility] HbA1c (Bld) [Mass fraction] 6.6 % High 4.0-6.[address] [facility] Comment on above: Order Comment: No: D o not add to previous draw Result Comment: Resu lt changed by BSHORT on 03/10/2022 13:15. The previous value was 6.5. Performed By: #### 3 1791 #### [facility] [address] [facility] [place] [address], [facility] POC GLUCOSE LABon 03-10-2022 Glucose [Mass/Vol] 107 mg/dL High 70-[address] [facility] Comment on above: Performed By: #### 3 5200 #### [facility] [address] [place] [address], [facility] Glucose [Mass/Vol] 100 mg/dL Normal 70-[address] [facility] Comment on above: Performed By: #### 8 5499 ####[facility] [place] [address], [facility] Glucose [Mass/Vol] 147 mg/dL High 70-[address] [facility] Comment on above: Performed By: #### 8 5499 ####[facility] [place] [address], [facility] Glucose [Mass/Vol] 65 mg/dL Low 70-[address] [facility] Comment on above: Performed By: #### 8 5499 ####[facility] [place] [address], [facility] PORTABLE CHEST 1 VIEWon PORTABLE CHEST 1 VIEW [facility] Department of Radiology [address] [place] [address] Patient Name: LISE CANALES : 1955 Sex: F Age: Race: White Pt. Location: [id number] Patient Status: I Ordered Date: 03/10/2022 7:40:00 [...] recommended. Electronically signed: Derek Ingram. Transcribed by: [email or web address], User Resident: Electronically Signed by: DEREK INGRAM @ 03/10/2022 12:[address] [facility] Comment on above: Order Comment: No: D o not add to previous draw *URINE CULTUREon 03-09-2022 *URINE CULTURE Clinical Report: (D) Specimen/Source: URINE/CLEAN VOID URINE Collected: 03/09/2022 01:58 Status: Final Last Updated: 03/10/2022 08:51 ISO (Final) 50,000 - 100,000 Cfu/mL Mixed Lexi: Multiple Organisms present suggest contamination. Suggest Repeat Specimen Normal [facility] Comment on above: Performed By: #### 3 0339 ####[facility] CBC W/DIFFon 03-09-2022 ABS IMM GRANS 0.1 10*3/uL Normal 0.0-0.[address] [facility] Comment on above: Order Comment: Check Chest Tube Position, S/P Chest tube DC'd Performed By: #### 5 0103 ####[facility] ABS NEUTROPHILS 13.3 10*3/uL High 1.6-7.[address] [facility] Comment on above: Order Comment: Check Chest Tube Position, S/P Chest tube DC'd Performed By: #### 5 0103 ####[facility] ANISO Moderate Normal [facility] Comment on above: Order Comment: Check Chest Tube Position, S/P Chest tube DC'd Performed By: #### 5 0103 ####[facility] Basophils (Bld) [#/Vol] 0.0 10*3/uL Normal 0.0-0.[address] [facility] Comment on above: Order Comment: Check Chest Tube Position, S/P Chest tube DC'd Performed By: #### 5 0103 ####[facility] Basophils/100 WBC (Bld) 0.3 % Normal 0.0-1.[address] [facility] Comment on above: Order Comment: Check Chest Tube Position, S/P Chest tube DC'd Performed By: #### 5 0103 ####[facility] Eosinophils (Bld) [#/Vol] 0.1 10*3/uL Normal 0.0-0.[address] [facility] Comment on above: Order Comment: Check Chest Tube Position, S/P Chest tube DC'd Performed By: #### 5 3 ####[facility] Eosinophils/100 WBC (Bld) 0.5 % Normal 0.0-6.[address] [facility] Comment on above: Order Comment: Check Chest Tube Position, S/P Chest tube DC'd Performed By: #### 5 3 ####[facility] Erythrocyte distribution width (RBC) [Ratio] 28.7 % High 11.5-15.[address] [facility] Comment on above: Order Comment: Check Chest Tube Position, S/P Chest tube DC'd Performed By: #### 102 ####[facility] Hematocrit (Bld) [Volume fraction] 29.1 % Low 36.0-45.[address] [facility] Comment on above: Order Comment: Check Chest Tube Position, S/P Chest tube DC'd Performed By: #### 5 3 ####[facility] Hemoglobin (Bld) [Mass/Vol] 8.3 g/dL Low 12.0-15.[address] [facility] Comment on above: Order Comment: Check Chest Tube Position, S/P Chest tube DC'd Performed By: #### 5 3 ####[facility] HYPO Slight Normal [facility] Comment on above: Order Comment: Check Chest Tube Position, S/P Chest tube DC'd Performed By: #### 5 0103 ####[facility] IMMATURE GRANS 0.5 % Normal 0.0-1.[address] [facility] Comment on above: Order Comment: Check Chest Tube Position, S/P Chest tube DC'd Performed By: #### 5 0103 ####[facility] [place] [address] Lymphocytes (Bld) [#/Vol] 0.8 10*3/uL Low 1.2-4.[address] [facility] Comment on above: Order Comment: Check Chest Tube Position, S/P Chest tube DC'd Performed By: #### 5 0103 ####[facility] Lymphocytes/100 WBC (Bld) 5.5 % Low 20.0-45.[address] [facility] Comment on above: Order Comment: Check Chest Tube Position, S/P Chest tube DC'd Performed By: #### 5 3 ####[address] MCH (RBC) [Entitic mass] 21.7 pg Low 27.0-33.[address] [facility] Comment on above: Order Comment: Check Chest Tube Position, S/P Chest tube DC'd Performed By: #### 5 0103 ####[facility] MCHC (RBC) [Mass/Vol] 28.5 g/dL Low 32.0-35.[address] [facility] Comment on above: Order Comment: Check Chest Tube Position, S/P Chest tube DC'd Performed By: #### 5 3 ####[facility] [facility] [address], [facility] MCV (RBC) [Entitic vol] 76.2 fL Low 82.0-98.[address] [facility] Comment on above: Order Comment: Check Chest Tube Position, S/P Chest tube DC'd Performed By: #### 5 3 ####[facility] [facility] [place] [address], [facility] Monocytes (Bld) [#/Vol] 1.1 10*3/uL High 0.1-1.[address] [facility] Comment on above: Order Comment: Check Chest Tube Position, S/P Chest tube DC'd Performed By: #### 5 3 ####[facility] [place] [address], [facility] MONOS 7.3 % Normal 5.0-12.[address] [facility] Comment on above: Order Comment: Check Chest Tube Position, S/P Chest tube DC'd Performed By: #### 5 3 ####[facility] [facility] [place] [address], [facility] Neutrophils/100 WBC (Bld) 85.9 % High 40.0-72.[address] [facility] Comment on above: Order Comment: Check Chest Tube Position, S/P Chest tube DC'd Performed By: #### 5 3 ####[facility] [facility] [place] [address], [facility] Nucleated RBC/100 WBC (Bld) [Ratio] 0 % Normal 0-[address] [facility] Comment on above: Order Comment: Check Chest Tube Position, S/P Chest tube DC'd Performed By: #### 5 3 ####[facility] [place] [address], [facility] PLAT CNT 149 10*3/uL Low 150-[address] [facility] Comment on above: Order Comment: Check Chest Tube Position, S/P Chest tube DC'd Performed By: #### 5 3 ####[facility] [place] [address], [facility] POIK Slight Normal [facility] Comment on above: Order Comment: Check Chest Tube Position, S/P Chest tube DC'd Performed By: #### 5 0103 ####[facility] [place] [address], [facility] POLY Slight Normal [facility] Comment on above: Order Comment: Check Chest Tube Position, S/P Chest tube DC'd Performed By: #### 5 0103 ####[facility] [facility] [address], [facility] RBC (Bld) [#/Vol] 3.82 10*6/uL Normal 3.80-5.[address] [facility] Comment on above: Order Comment: Check Chest Tube Position, S/P Chest tube DC'd Performed By: #### 5 0103 ####[facility] [place] [address], [facility] WBC (Bld) [#/Vol] 15.41 10*3/uL High 4.00-10.[address] [facility] Comment on above: Order Comment: Check Chest Tube Position, S/P Chest tube DC'd Performed By: #### 5 0103 ####[facility] [facility] COMP METABOLIC PANELon 03-09 Albumin [Mass/Vol] 3.8 g/dL Normal 3.5-5.[address] [facility] Comment on above: Order Comment: No: D o not add to previous draw Performed By: #### 3 5200, 76652, 07303, 03276 #### [facility] [address] [place] [address], [facility] ALKALINE PHOSPH 52 IU/L Normal 34-[address] [facility] Comment on above: Order Comment: No: D o not add to previous draw Performed By: #### 3 5200, 87523, 77962, 71968 #### [facility] [address] [place] [address], [place] ALT [Catalytic activity/Vol] 13 U/L Normal 7-[address] [facility] Comment on above: Order Comment: No: D o not add to previous draw Performed By: #### 3 5200, 13406, 13337, 84690 #### [facility] [address] [place] [address], [place] AST [Catalytic activity/Vol] 14 U/L Normal 13-[address] [facility] Comment on above: Order Comment: No: D o not add to previous draw Performed By: #### 3 5200, 16064, 57223, 53977 #### [facility] [address] [place] [address], [place] Bilirubin [Mass/Vol] 0.4 mg/dL Normal 0.3-1.[address] [facility] Comment on above: Order Comment: No: D o not add to previous draw Performed By: #### 3 5200, 44813, 15414, 52614 #### [facility] [address] [place] [address], [place] Calcium [Mass/Vol] 9.2 mg/dL Normal 8.6-10.[address] [facility] Comment on above: Order Comment: No: D o not add to previous draw Performed By: #### 3 5200, 98860, 18924, 52717 #### [facility] [address] [place] [address], [place] Chloride [Moles/Vol] 99 mmol/L Normal 98-[address] [facility] Comment on above: Order Comment: No: D o not add to previous draw Performed By: #### 3 5200, 49013, 42513, 68144 #### [facility] [address] [place] [address], [place] CO2 [Moles/Vol] 33 mmol/L High 21-[address] [facility] Comment on above: Order Comment: No: D o not add to previous draw Performed By: #### 3 5200, 65976, 83433, 58334 #### [facility] [address] [place] [address], [facility] Creatinine [Mass/Vol] 0.79 mg/dL Normal 0.55-1.[address] [facility] Comment on above: Order Comment: No: D o not add to previous draw Performed By: #### 3 5200, 38880, 98599, 45576 #### [facility] [address] [place] [address], [facility] Performed By: #### B LDCX1 #### [facility] [address] [place] [address] Dr. Kayley Hatfield GFR/1.73 sq M.predicted among non-blacks MDRD (S/P/Bld) [Vol rate/Area] mL/min/{1.73_m2} Normal >[address] [facility] Comment on above: Order Comment: No: D o not add to previous draw Result Comment: [facility]'s estimated glomerular filtration rate (eGFR) will [...] of individuals. Performed By: #### 3 5200, 14763, 37789, 85190 #### [facility] [address] [place] [address], [facility] Glucose [Mass/Vol] 125 mg/dL High 70-[address] [facility] Comment on above: Order Comment: No: D o not add to previous draw Performed By: #### 3 5200, 87376, 06307, 05082 #### [facility] [address] [place] [address], [facility] Potassium [Moles/Vol] 4.7 mmol/L Normal 3.5-5.[address] [facility] Comment on above: Order Comment: No: D o not add to previous draw Performed By: #### 3 5200, 55957, 21778, 35036 #### [facility] [address] [place] [address], [place] Protein [Mass/Vol] 5.9 g/dL Low 6.0-8.[address] [facility] Comment on above: Order Comment: No: D o not add to previous draw Performed By: #### 3 5200, 16304, 03031, 44514 #### [facility] [address] [place] [address], [facility] Sodium [Moles/Vol] 136 mmol/L Normal 136-[address] [facility] Comment on above: Order Comment: No: D o not add to previous draw Performed By: #### 3 5200, 01421, 50783, 72758 #### [facility] [address] [place] [address], [facility] Urea nitrogen [Mass/Vol] 12 mg/dL Normal 7-[address] [facility] Comment on above: Order Comment: No: D o not add to previous draw Performed By: #### 3 5200, 03480, 21920, 76539 #### [facility] [address] [place] [address], [place] LIPID PROFILEon 03-09-2022 Cholesterol [Mass/Vol] 160 mg/dL Normal 120-[address] [facility] Comment on above: Order Comment: No: D o not add to previous draw Result Comment: CHOL ESTEROL REFERENCE RANGE: 20 YEARS AND OLDER CARDIOVASCULAR RISK Less than 200 mg/dl Low Risk 200 to 239 mg/dl Borderline Risk 240 mg/dl and greater High Risk Performed By: #### 3 5200, 56758, 39934, 64666 #### [facility] [address] [place] [address], [place] Cholesterol in HDL [Mass/Vol] 76 mg/dL Normal 23-[address] [facility] Comment on above: Order Comment: No: D o not add to previous draw Result Comment: Slig ht variation in normal range could be due to gender and/or age. HDL CHOLESTEROL REFERENCE RANGE: 20 years and older Cardiovascular Risk > or =60 mg/dL Desirable 40 TO 59 mg/dL Low Risk <40 mg/dL High Risk Performed By: #### 3 5200, 04779, 39568, 64595 #### [facility] [address] [place] [address], [place] Cholesterol in LDL [Mass/Vol] 48 mg/dL Normal 0-[address] [facility] Comment on above: Order Comment: No: D o not add to previous draw Result Comment: LDL IS A CALCULATION LDL IS ONLY VALID IF THE TRIG IS LESS THAN 400. Performed By: #### 3 5200, 72897, 06130, 30360 #### [facility] [address] [place] [address], [place] Cholesterol.total/Cho lesterol in HDL [Mass ratio] 2.1 {ratio} Normal .0-4.[address] [facility] Comment on above: Order Comment: No: D o not add to previous draw Performed By: #### 3 5200, 99078, 89292, 67690 #### [facility] [address] [place] [address], [place] NON-HDL CHOLESTEROL 84 mg/dL Normal [facility] Comment on above: Order Comment: No: D o not add to previous draw Performed By: #### 3 5200, 29539, 07206, 87702 #### [facility] [address] [place] [address], [place] Triglyceride [Mass/Vol] 179 mg/dL High 40-[address] [facility] Comment on above: Order Comment: No: D o not add to previous draw Result Comment: TRIG LYCERIDE REFERENCE RANGE: 20 YEARS AND OLDER CARDIOVASCULAR RISK LESS THAN 150 mg/dl LOW RISK 150 TO 199 mg/dl BORDERLINE RISK 200 mg/dl AND GREATER HIGH RISK Performed By: #### 3 5200, 01358, 76989, 71109 #### [facility] [address] VLDL CHOL 36 mg/dL Normal 0-[address] [facility] Comment on above: Order Comment: No: D o not add to previous draw Performed By: #### 3 5200, 46656, 74160, 30633 #### [facility] [address] POC GLUCOSE LABon 03-09-2022 Glucose [Mass/Vol] 105 mg/dL High 70-[address] [facility] Comment on above: Performed By: #### 8 5499 ####[facility] [facility].[address] POC SARS COV2 ANTIGEN NEGATI VEon 03-09-2022 POC SARS COV2 ANTIGEN NEG Negative Normal NEGATIVE [facility] Comment on above: Result Comment: Nega [...] antigen from SARS-CoV-2 in direct nasopharyngeal swab (BOX TOE STITCHER) specimens from individuals who are suspected of [...] of Accreditation. Performed By: #### 3 2044 ####[facility] [place], [place] [address] [place] [address] PORTABLE CHEST 1 VIEWon PORTABLE CHEST 1 VIEW [facility] Department of Radiology [address] [place] [address] Patient Name: LISE CANALES : 1955 Sex: F Age: Race: White Pt. Location: [id number] Patient Status: I Ordered Date: 03/09/2022 8:55:00 [...] COPD. Electronically signed: Derek Ingram. Transcribed by: [email or web address], User Resident: Electronically Signed by: DEREK INGRAM @ 03/09/2022 02:[address] [facility] Comment on above: Order Comment: Check Chest Tube Position, S/P Chest tube DC'd TROPONIN-Ion 03-09-2022 Troponin I.cardiac [Mass/Vol] 0.00 ng/mL Normal 0.00-0.[address] [facility] Comment on above: Order Comment: No: D o not add to previous draw Result Comment: REFE RENCE RANGES: 0.00 - 0.04 ng/ml NORMAL 0.05 - 0.50 ng/ml INDETERMINATE > 0.50 ng/ml CONSISTENT WITH AN M.I. Performed By: #### 3 5200, 26268, 54359, 91315 #### [facility] [address] [place] [address], [place] Troponin I.cardiac [Mass/Vol] 0.01 ng/mL Normal 0.00-0.[address] [facility] Comment on above: Order Comment: No: D o not add to previous draw Result Comment: REFE RENCE RANGES: 0.00 - 0.04 ng/ml NORMAL 0.05 - 0.50 ng/ml INDETERMINATE > 0.50 ng/ml CONSISTENT WITH AN M.I. Performed By: #### 3 5200 #### [facility] [address] [place] [address], [place] Troponin I.cardiac [Mass/Vol] 0.00 ng/mL Normal 0.00-0.[address] [facility] Comment on above: Order Comment: No: D o not add to previous draw Result Comment: REFE RENCE RANGES: 0.00 - 0.04 ng/ml NORMAL 0.05 - 0.50 ng/ml INDETERMINATE > 0.50 ng/ml CONSISTENT WITH AN M.I. Performed By: #### 3 5200, 32033, 38167, 82993 #### [facility] [address] [facility] [address] TSH3 WITH REFLEX FT4on 03-09 TSH 3RD GENERATION 0.60 uIU/mL Normal 0.34-5.[address] [facility] Comment on above: Order Comment: No: D o not add to previous draw Performed By: #### 3 5200, 91851, 51510, 06035 #### [facility] [address] URINALYSIS REFLEXon 03-09-20 Appearance (U) CLEAR Normal CLEAR [facility] Comment on above: Order Comment: Check Chest Tube Position, S/P Chest tube DC'd Performed By: #### 3 0965 ####[facility] [place] [address], [facility] Bilirubin Ql (U) Negative Normal NEGATIVE [facility] Comment on above: Order Comment: Check Chest Tube Position, S/P Chest tube DC'd Performed By: #### 3 0965 ####[facility] [place] [address], [facility] Color (U) STRAW Abnormal YELLOW [facility] Comment on above: Order Comment: Check Chest Tube Position, S/P Chest tube DC'd Performed By: #### 3 0965 ####[facility] [place] [address], [facility] EPIS OCC Normal FEW,OCC,NONE SEEN [facility] Comment on above: Order Comment: Check Chest Tube Position, S/P Chest tube DC'd Performed By: #### 3 0965 ####[facility] [place] [address], [facility] Glucose Ql (U) Negative Normal NEGATIVE [facility] Comment on above: Order Comment: Check Chest Tube Position, S/P Chest tube DC'd Performed By: #### 3 0965 ####[facility] [facility].[address] Hemoglobin Ql (U) MODERATE Abnormal NEGATIVE [facility] Comment on above: Order Comment: Check Chest Tube Position, S/P Chest tube DC'd Performed By: #### 3 0965 ####[facility] KETONE Negative Normal NEGATIVE [facility] Comment on above: Order Comment: Check Chest Tube Position, S/P Chest tube DC'd Performed By: #### 3 0965 ####[facility] LEUK SHARMIN SMALL Abnormal NEGATIVE [facility] Comment on above: Order Comment: Check Chest Tube Position, S/P Chest tube DC'd Performed By: #### 3 0965 ####[facility] MUCUS THREADS OCC Abnormal NONE SEEN [facility] Comment on above: Order Comment: Check Chest Tube Position, S/P Chest tube DC'd Performed By: #### 3 0965 ####[facility] Nitrite Ql (U) Negative Normal NEGATIVE [facility] Comment on above: Order Comment: Check Chest Tube Position, S/P Chest tube DC'd Performed By: #### 3 0965 ####[facility] pH (U) 6.0 [pH] Normal 5.0-8.[address] [facility] Comment on above: Order Comment: Check Chest Tube Position, S/P Chest tube DC'd Performed By: #### 3 0965 ####[facility] Protein Ql (U) Negative Normal NEGATIVE [facility] Comment on above: Order Comment: Check Chest Tube Position, S/P Chest tube DC'd Performed By: #### 3 0965 ####[facility] [place] [address], [facility] RBC 6-10 Abnormal NONE SEEN [facility] Comment on above: Order Comment: Check Chest Tube Position, S/P Chest tube DC'd Performed By: #### 3 0965 ####[facility] SPEC GRAV 1.015 Normal 1.015-1.[address] [facility] Comment on above: Order Comment: Check Chest Tube Position, S/P Chest tube DC'd Performed By: #### 3 0965 ####[facility] [facility].[address] WBC UA 11-20 Abnormal N[address] SEEN [facility] Comment on above: Order Comment: Check Chest Tube Position, S/P Chest tube DC'd Performed By: #### 3 0965 ####[facility] CBC W MANUAL DIFFon 03-08-20 22 ATYPICAL LYMPH # Normal [facility] Comment on above: Performed By: #### C VDTBH #### [facility] [address] [address] [address] Kayley Hatfield ATYPICAL LYMPH % Normal [facility] Comment on above: Performed By: #### C VDTBH #### [facility] [address] [address] [address] Kayley Hatfield BAND # Normal 0.0-0.3 [facility] Comment on above: Performed By: #### C VDTBH #### [facility] [address] [address] [address] Kayley Hatfield BAND % Normal 0-5 [facility] Comment on above: Performed By: #### C VDTBH #### [facility] [address] [address] [address] Kayley Hatfield BASOM # 0.00 103/ul Normal 0.00-0.10 [facility] Comment on above: Performed By: #### C VDTBH #### [facility] [address] [place] [address] Dr. Kayley Hatfield BASOM % 0.0 % Critically low 0.2-2.0 [facility] Comment on above: Performed By: #### C VDTBH #### [facility] [address] [place] [address] Dr. Kayley Hatfield BLAST # Normal [facility] Comment on above: Performed By: #### C VDTBH #### [facility] [address] [place] [address] Dr. Kayley Hatfield BLAST % Normal [facility] Comment on above: Performed By: #### C VDTBH #### [facility] [address] [place] [address] Dr. Kayley Hatfield CORRECTED WBC Normal 4.0-11.0 [facility] Comment on above: Performed By: #### C VDTBH #### [facility] [address] [place] [address] Dr. Kayley Hatfield EOS # 0.14 103/ul Normal 0.00-0.70 [facility] Comment on above: Performed By: #### C VDTBH #### [facility] [address] [place] [address] Dr. Kayley Hatfield EOS% 1.0 % Normal 0.9-7.0 [facility] Comment on above: Performed By: #### C VDTBH #### [facility] [address] [place] [address] Dr. Kayley Hatfield HCT 27.5 % Critically low 36.0-48.0 [facility] Comment on above: Performed By: #### C VDTBH #### [facility] [address] [place] [address] Dr. Kayley Hatfield HGB 7.9 g/dl Critically low 12.0-16.0 [facility] Comment on above: Performed By: #### C VDTBH #### [facility] [address] [address] [address] Kayley Hatfield LYMPHM # 1.42 103/ul Normal 1.20-3.80 [facility] [facility] Comment on above: Performed By: #### C VDTBH #### [facility] [address] [address] [address] Kayley Hatfield LYMPHM% 10.0 % Critically low 20.5-60.0 [facility] Comment on above: Performed By: #### C VDTBH #### [facility] [address] [place] [address] Dr. Kayley Hatfield MCH 21.5 pg Critically low 26.7-34.0 [facility] Comment on above: Performed By: #### C VDTBH #### [facility] [address] [place] [address] Dr. Kayley Hatfield MCHC 28.7 g/dl Critically low 29.9-35.2 [facility] Comment on above: Performed By: #### C VDTBH #### [facility] [address] [place] [address] Dr. Kayley Hatfield MCV 74.7 fL Critically low 81.0-99.0 [facility] Comment on above: Performed By: #### C VDTBH #### [facility] [address] [place] [address] Dr. Kayley Hatfield METAMYELOCYTE # Normal [facility] Comment on above: Performed By: #### C VDTBH #### [facility] [address] [place] [address] Dr. Kayley Hatfield METAMYELOCYTE % Normal [facility] Comment on above: Performed By: #### C VDTBH #### [facility] [address] [place] [address] Dr. Kayley Hatfield MONOM# 2.13 103/ul Critically high 0.30-0.80 [facility] Comment on above: Performed By: #### C VDTBH #### [facility] [address] [place] [address] Dr. Kayley Hatfield MONOM% 15.0 % Critically high 1.7-12.0 [facility] Comment on above: Performed By: #### C VDTBH #### [facility] [address] [place] [address] Dr. Kayley Hatfield MPV 9.5 fL Normal 9.5-13.5 [facility] Comment on above: Performed By: #### C VDTBH #### [facility] [address] [place] [address] Dr. Kayley Hatfield MYELOCYTE # Normal [facility] Comment on above: Performed By: #### C VDTBH #### [facility] [address] [place] [address] Dr. Kayley Hatfield MYELOCYTE % Normal [facility] Comment on above: Performed By: #### C VDTBH #### [facility] [address] [place] [address] Dr. Kayley Hatfield NRBC Normal [facility] Comment on above: Performed By: #### C VDTBH #### [facility] [address] [place] [address] Dr. Kayley Hatfield PLT 180 103/ul Normal 150-450 [facility] Comment on above: Performed By: #### C VDTBH #### [facility] [address] [place] [address] Dr. Kayley Hatfield RBC 3.68 106/ul Critically low 4.20-5.40 [facility] Comment on above: Performed By: #### C VDTBH #### [facility] [address] [place] [address] Dr. Kayley Hatfield RDW 27.5 % Critically high 11.0-15.0 [facility] Comment on above: Performed By: #### C VDTBH #### [facility] [address] [place] [address] Dr. Kayley Hatfield SEG # 10.51 103/ul Critically high 1.40-6.50 [facility] Comment on above: Performed By: #### C VDTBH #### [facility] [address] [place] [address] Dr. Kayley Hatfield SEG % 74.0 % Normal 43.0-75.0 [facility] Comment on above: Performed By: #### C VDTBH #### [facility] [address] [place] [address] Dr. Kayley Hatfield WBC 14.2 103/ul Critically high 4.0-11.0 [facility] Comment on above: Performed By: #### C VDTBH #### [facility] [address] [place] [address] Dr. Kayley Hatfield PRBC LEUKOREDUCEDon 03-08-20 ABO and Rh group Nom (Bld) Cross Match Result Compatible Unit Blood Type O Pos Unit Number [id number] Status Information Transfused Product ID Red Blood Cells Product Code [id number] Cross Match Result Compatible Blood Bank Notes CALLED TO VIC IN ICU @1657 Unit Blood Type O Pos Unit Number [id number] Status Information Transfused Product ID Red Blood Cells Product Code [id number] Normal [facility] Comment on above: Performed By: #### P RBC #### [facility] [address] [place] [address] Dr. Kayley Hatfield PROF CHEM 8 (BAS METB)on Anion gap [Moles/Vol] 10.1 mmol/L Normal [facility] Comment on above: Performed By: #### B [id number] #### [facility] [address] [place] [address] Dr. Kayley Hatfield Calcium [Mass/Vol] 8.8 mg/dL Normal 8.5-10.1 [facility] Comment on above: Performed By: #### B [id number] #### [facility] [address] [place] [address] Dr. Kayley Hatfield Chloride [Moles/Vol] 100 mmol/L Normal 98-107 [facility] Comment on above: Performed By: #### B [id number] #### [facility] [address] [place] [address] Dr. Kayley Hatfield CO2 [Moles/Vol] 34.2 mmol/L Critically high 21.0-32.0 [facility] Comment on above: Performed By: #### B [id number] #### [facility] [address] [address] [address] Kayley Hatfield EGFR-AF CAMEROONIAN >60 Normal >=60 [facility] Comment on above: Performed By: #### B LDCX1 #### [facility] [address] [address] [address] Kayley Hatfield EGFR-NON AF CAMEROONIAN >60 Normal >=60 [facility] Comment on above: Performed By: #### B [id number] #### [facility] [address] [address] [address] Kayley Hatfield Glucose [Mass/Vol] 107 mg/dL Critically high 74-106 [facility] Comment on above: Performed By: #### B [id number] #### [facility] [address] [place] [address] Dr. Kayley Hatfield Potassium [Moles/Vol] 4.3 mmol/L Normal 3.5-5.1 [facility] Comment on above: Performed By: #### B [id number] #### [facility] [address] [address] [address] Kayley Hatfield Sodium [Moles/Vol] 140 mmol/L Normal 136-145 [facility] Comment on above: Performed By: #### B [id number] #### [facility] [address] [address] [address] Kayley Hatfield Urea nitrogen [Mass/Vol] 15.0 mg/dL Normal 7.0-18.0 [facility] Comment on above: Performed By: #### B [id number] #### [facility] [address] [address] [address] Kayley Hatfield Urea nitrogen/Creatinine [Mass ratio] 19.0 mg/mg Normal [facility] Comment on above: Performed By: #### B [id number] #### [facility] [address] [place] [address] Dr. Kayley Hatfield XR CHEST 1 Von [...] MIGUE REYNOSO Date: 2022-03-08 07:02 Normal [facility] CBC W MANUAL DIFFon 03-07-20 22 ACANTHOCYTES SLIGHT Normal [facility] Comment on above: Performed By: #### B [id number] #### [facility] [address] [place] [address] Dr. Kayley Hatfield ANISOCYTOSIS 2+ Normal [facility] Comment on above: Performed By: #### B [id number] #### [facility] [address] [place] [address] Dr. Kayley Hatfield ATYPICAL LYMPH # Normal [facility] Comment on above: Performed By: #### B [id number] #### [facility] [address] [place] [address] Dr. Kayley Hatfield ATYPICAL LYMPH % Normal [facility] Comment on above: Performed By: #### B [id number] #### [facility] [address] [place] [address] Dr. Kayley Hatfield BAND # 0.0 103/ul Normal 0.0-0.3 [facility] Comment on above: Performed By: #### B [id number] #### [facility] [address] [place] [address] Dr. Kayley Hatfield BAND % 0 % Normal 0-5 [facility] Comment on above: Performed By: #### B [id number] #### [facility] [address] [place] [address] Dr. Kayley Hatfield BASOM # 0.00 103/ul Normal 0.00-0.10 [facility] Comment on above: Performed By: #### B [id number] #### [facility] [address] [address] [address] Kayley Hatfield BASOM % 0.0 % Critically low 0.2-2.0 [facility] Comment on above: Performed By: #### B [id number] #### [facility] [address] [place] [address] Dr. Kayley Hatfield BLAST # Normal [facility] Comment on above: Performed By: #### B [id number] #### [facility] [address] [address] [address] Kayley Hatfield BLAST % Normal [facility] Comment on above: Performed By: #### B [id number] #### [facility] [address] [place] [address] Dr. Kayley Hatfield ANDREE CELLS SLIGHT Normal [facility] Comment on above: Performed By: #### B [id number] #### [facility] [address] [place] [address] Dr. Kayley Hatfield CORRECTED WBC Normal 4.0-11.0 [facility] Comment on above: Performed By: #### B [id number] #### [facility] [address] [place] [address] Dr. Kayley Hatfield EOS # 0.16 103/ul Normal 0.00-0.70 [facility] Comment on above: Performed By: #### B [id number] #### [facility] [address] [place] [address] Dr. Kayley Hatfield EOS% 1.0 % Normal 0.9-7.0 [facility] Comment on above: Performed By: #### B [id number] #### [facility] [address] [place] [address] Dr. Kayley Hatfield GIANT PLATELETS SEEN Normal [facility] Comment on above: Performed By: #### B [id number] #### [facility] [address] [place] [address] Dr. Kayley Hatfield HCT 31.1 % Critically low 36.0-48.0 [facility] Comment on above: Performed By: #### B [id number] #### [facility] [address] [place], [place] [id number] Dr. Kayley Hatfield HGB 9.1 g/dl Critically low 12.0-16.0 [facility] Comment on above: Performed By: #### B [id number] #### [facility] [address] [place] [address] Dr. Kayley Hatfield HYPOCHROMASIA 1+ Normal [facility] Comment on above: Performed By: #### B [id number] #### [facility] [address] [place] [address] Dr. Kayley Hatfield LYMPHM # 2.09 103/ul Normal 1.20-3.80 [facility] Comment on above: Performed By: #### B [id number] #### [facility] [address] [place] [address] Dr. Kayley Hatfield LYMPHM% 13.0 % Critically low 20.5-60.0 [facility] Comment on above: Performed By: #### B [id number] #### [facility] [address] [place] [address] Dr. Kayley Hatfield MCH 21.4 pg Critically low 26.7-34.0 [facility] Comment on above: Performed By: #### B [id number] #### [facility] [address] [place] [address] Dr. Kayley Hatfield MCHC 29.3 g/dl Critically low 29.9-35.2 [facility] Comment on above: Performed By: #### B [id number] #### [facility] [address] [place] [address] Dr. Kayley Hatfield MCV 73.0 fL Critically low 81.0-99.0 [facility] Comment on above: Performed By: #### B [id number] #### [facility] [address] [place] [address] Dr. Kayley Hatfield METAMYELOCYTE # Normal [facility] Comment on above: Performed By: #### B [email or web address] #### [facility] [address] [place] [address] Dr. Kayley Hatfield METAMYELOCYTE % Normal [facility] Comment on above: Performed By: #### B [email or web address] #### [facility] [address] [place] [address] Dr. Kayley Hatfield MICROCYTOSIS SLIGHT Normal [facility] Comment on above: Performed By: #### B [email or web address] #### [facility] [address] [place] [address] Dr. Kayley Hatfield MONOM# 0.48 103/ul Normal 0.30-0.80 [facility] Comment on above: Performed By: #### B [id number] #### [facility] [address] [place] [address] Dr. Kayley Hatfield MONOM% 3.0 % Normal 1.7-12.0 [facility] Comment on above: Performed By: #### B [id number] #### [facility] [address] [place] [address] Dr. Kayley Hatfield MPV 8.9 fL Critically low 9.5-13.5 [facility] Comment on above: Performed By: #### B [id number] #### [facility] [address] [place] [address] Dr. Kayley Hatfield MYELOCYTE # Normal [facility] Comment on above: Performed By: #### B [id number] #### [facility] [address] [place] [address] Dr. Kayley Hatfield MYELOCYTE % Normal [facility] Comment on above: Performed By: #### B [id number] #### [facility] [address] [place] [address] Dr. Kayley Hatfield NRBC Normal [facility] Comment on above: Performed By: #### B [id number] #### [facility] [address] [place] [address] Dr. Kayley Hatfield PLT 243 103/ul Normal 150-450 [facility] Comment on above: Performed By: #### B [id number] #### [facility] [address] [place] [address] Dr. Kayley Hatfield RBC 4.26 106/ul Normal 4.20-5.40 [facility] Comment on above: Performed By: #### B LDCX1 #### [facility] [address] [address] [address] Kayley Hatfield RDW 27.1 % Critically high 11.0-15.0 [facility] Comment on above: Performed By: #### B [id number] #### [facility] [address] [place], [place] [address] Dr. Kayley Hatfield SEG # 13.36 103/ul Critically high 1.40-6.50 [facility] Comment on above: Performed By: #### B LDCX1 #### [facility] [address] [address] [address] Kayley Hatfield SEG % 83.0 % Critically high 43.0-75.0 [facility] Comment on above: Performed By: #### B LDCX1 #### [facility] [address] [address] [address] Kayley Hatfield WBC 16.1 103/ul Critically high 4.0-11.0 [facility] Comment on above: Performed By: #### B [id number] #### [facility] [address] [address] [address] CHEST WO CONon [...] ASAEL MALDONADO Date: 2022-03-07 09:42 Normal [facility] HEMOGLOBIN AND HEMATOCRITon 03-07-2022 Hematocrit (Bld) [Volume fraction] 31.8 % Critically low 36.0-48.0 [facility] Comment on above: Performed By: #### H GBHCT #### [facility] [address] [place] [address] Dr. Kayley Hatfield Hemoglobin (Bld) [Mass/Vol] 9.5 g/dL Critically low 12.0-16.0 [facility] Comment on above: Performed By: #### H GBHCT #### [facility] [address] [place] [address] Dr. Kayley Hatfield RETICULOCYTEon 03-07-2022 RETIC 1.92 % Normal 0.60-3.10 [facility] Comment on above: Performed By: #### O BSCRN #### [facility] [address] [place] [address] Dr. Kayley Hatfield XR CHEST 1 Von [...] ASAEL MALDONADO Date: 2022-03-07 12:54 Normal [facility] XR CHEST 1 V EXAM: XR [...] ASAEL MALDONADO Date: 2022-03-07 07:10 Normal [facility] BNPon 03-06-2022 Natriuretic peptide B (Bld) [Mass/Vol] 441.0 pg/mL Normal <=900.0 [facility] Comment on above: Performed By: #### H GBHCT #### [facility] [address] [place] [address] Dr. Kayley Hatfield CBC AUTO DIFFon 03-06-2022 BASO # 0.1 103/ul Normal 0.0-0.1 [facility] Comment on above: Performed By: #### O BSCRN #### [facility] [address] [place] [address] Dr. Kayley Hatfield Basophils/100 WBC (Bld) 0.7 % Normal 0.2-2.0 [facility] Comment on above: Performed By: #### O BSCRN #### [facility] [address] [place] [address] Dr. Kayley Hatfield EO # 0.1 103/ul Normal 0.0-0.7 [facility] Comment on above: Performed By: #### O BSCRN #### [facility] [address] [place] [address] Dr. Kayley Hatfield Eosinophils/100 WBC (Bld) 0.7 % Critically low 0.9-7.0 [facility] Comment on above: Performed By: #### O BSCRN #### [facility] [address] [address] [address] Kayley Hatfield Erythrocyte distribution width (RBC) [Ratio] 20.0 % Critically high 11.0-15.0 [facility] Comment on above: Performed By: #### O BSCRN #### [facility] [address] [place] [address] Dr. Kayley Hatfield Hematocrit (Bld) [Volume fraction] 20.1 % Critically low 36.0-48.0 [facility] Comment on above: Performed By: #### O BSCRN #### [facility] [address] [place] [address] Dr. Kayley Hatfield Hemoglobin (Bld) [Mass/Vol] 4.9 g/dL Critically low 12.0-16.0 [facility] Comment on above: Performed By: #### O BSCRN #### [facility] [address] [place] [address] Dr. Kayley Hatfield IG # 0.12 10e3/ul Critically high 0.00-0.03 [facility] Comment on above: Performed By: #### O BSCRN #### [facility] [address] [place] [address] Dr. Kayley Hatfield IG % 0.8 % Critically high 0.0-0.5 [facility] Comment on above: Performed By: #### O BSCRN #### [facility] [address] [place] [address] Dr. Kayley Hatfield LYMPH # 1.0 103/ul Critically low 1.2-3.8 [facility] Comment on above: Performed By: #### O BSCRN #### [facility] [address] [place] [address] Dr. Kayley Hatfield Lymphocytes/100 WBC (Bld) 6.5 % Critically low 20.5-60.0 [facility] Comment on above: Performed By: #### O BSCRN #### [facility] [address] [place] [address] Dr. Kayley Hatfield MANUAL DIFF REQ NO Normal [facility] Comment on above: Performed By: #### O BSCRN #### [facility] [address] [address] [address] Kayley Hatfield MCH (RBC) [Entitic mass] 15.2 pg Critically low 26.7-34.0 [facility] Comment on above: Performed By: #### O BSCRN #### [facility] [address] [place] [address] Dr. Kayley Hatfield MCHC (RBC) [Mass/Vol] 24.4 g/dL Critically low 29.9-35.2 [facility] Comment on above: Performed By: #### O BSCRN #### [facility] [address] [place] [address] Dr. Kayley Hatfield MCV (RBC) [Entitic vol] 62.2 fL Critically low 81.0-99.0 [facility] Comment on above: Performed By: #### O BSCRN #### [facility] [address] [place] [address] Dr. Kayley Hatfield MONO # 0.5 103/ul Normal 0.3-0.8 [facility] Comment on above: Performed By: #### O BSCRN #### [facility] [address] [place] [address] Dr. Kayley Hatfield Monocytes/100 WBC (Bld) 3.5 % Normal 1.7-12.0 [facility] Comment on above: Performed By: #### O BSCRN #### [facility] [address] [place] [address] Dr. Kayley Hatfield NEUT # 13.2 103/ul Critically high 1.4-6.5 [facility] Comment on above: Performed By: #### O BSCRN #### [facility] [address] [place] [address] Dr. Kayley Hatfield Neutrophils/100 WBC (Bld) 87.8 % Critically high 43.0-75.0 [facility] Comment on above: Performed By: #### O BSCRN #### [facility] [address] [place] [address] Dr. Kayley Hatfield Platelet mean volume (Bld) [Entitic vol] 9.1 fL Critically low 9.5-13.5 [facility] Comment on above: Performed By: #### O BSCRN #### [facility] [address] [place] [address] Dr. Kayley Hatfield PLT 384 103/ul Normal 150-450 [facility] Comment on above: Performed By: #### O BSCRN #### [facility] [address] [place] [address] Dr. Kayley Hatfield RBC 3.23 106/ul Critically low 4.20-5.40 [facility] Comment on above: Performed By: #### O BSCRN #### [facility] [address] [place] [address] Dr. Kayley Hatfield WBC 15.1 103/ul Critically high 4.0-11.0 [facility] Comment on above: Performed By: #### O BSCRN #### [facility] [address] [place] [address] Dr. Kayley Hatfield CULTURE BLOODon 03-06-2022 Microscopic examination of blood, culture Culture Observations: NO GROWTH AT 5 DAYS. Normal [facility] Comment on above: Performed By: #### C VDTBH #### [facility] [address] [place] [address] Dr. Kayley Hatfield Performed By: #### B LDCX1 #### [facility] [address] [place] [address] Dr. Kayley Hatfield Covid-19 PCR (CVDTBH)on 02-07 SARS-CoV-2 (COVID-19) RNA ELBA+probe Ql (Unsp spec) Not detected Normal NOT DETECTED [facility] Comment on above: Result Comment: When [...] for this test is supported by the [place] of Health and Human Service's declaration that [...] used). Performed By: #### C VDTBH #### [facility] [address] [place] [address] Dr. Kayley Hatfield ER URINE PROFILEon 2 Bilirubin Ql (U) Negative Normal NEGATIVE [facility] Comment on above: Performed By: #### P RBC #### [facility] [address] [place] [address] Dr. Kayley Hatfield Clarity (U) CLEAR Normal CLEAR [facility] Comment on above: Performed By: #### P RBC #### [facility] [address] [place] [address] Dr. Kayley Hatfield Color (U) LT. YELLOW Normal YELLOW [facility] Comment on above: Performed By: #### P RBC #### [facility] [address] [place] [address] Dr. Kayley Hatfield ERUAHD A micrscopic examination will be performed if indicated. Normal [facility] Comment on above: Performed By: #### P RBC #### [facility] [address] [place] [address] Dr. Kayley Hatfield Glucose Ql (U) Negative Normal NEGATIVE [facility] Comment on above: Performed By: #### P RBC #### [facility] [address] [place] [address] Dr. Kayley Hatfield Hemoglobin Ql (U) Negative Normal NEGATIVE [facility] Comment on above: Performed By: #### P RBC #### [facility] [address] [place] [address] Dr. Kayley Hatfield Ketones Ql (U) Negative Normal NEGATIVE [facility] Comment on above: Performed By: #### P RBC #### [facility] [address] [place] [address] Dr. Kayley Hatfield LEUKOCYTES Negative Normal NEGATIVE [facility] Comment on above: Performed By: #### P RBC #### [facility] [address] [address] [address] Kayley Hatfield Nitrite Ql (U) Negative Normal NEGATIVE [facility] Comment on above: Performed By: #### P RBC #### [facility] [facility] [address] [place] [address] Dr. Kayley Hatfield pH (U) 6.0 [pH] Normal 5-9 [facility] Comment on above: Performed By: #### P RBC #### [facility] [address] [place] [address] Dr. Kayley Hatfield SPEC GRAVITY 1.010 Normal 1.005-<=1.025 [facility] Comment on above: Performed By: #### P RBC #### [facility] [address] [place] [address] Dr. Kayley Hatfield UA PROTEIN Negative Normal NEGATIVE/ TRACE [facility] Comment on above: Performed By: #### P RBC #### [facility] [address] [place] [address] Dr. Kayley Hatfield UR MICRO IND NOT INDICATED Normal [facility] Comment on above: Performed By: #### P RBC #### [facility] [address] [place] [address] Dr. Kayley Hatfield Urobilinogen Qn (U) 0.2 {Lu'U}/dL Normal 0.2 - 1. 0 [facility] Comment on above: Performed By: #### P RBC #### [facility] [address] [place] [address] Dr. Kayley Hatfield FERRITINon 03-06-2022 Ferritin [Mass/Vol] 4.0 ng/mL Critically low 8.0-252.0 [facility] Comment on above: Performed By: #### O BSCRN #### [facility] [address] [place] [address] Dr. Kayley Hatfield IRON AND TIBCon 03-06-2022 % SATURATION 2.3 % Normal [facility] Comment on above: Performed By: #### C VDTBH #### [facility] [address] [address] [address] Kayley Hatfield Iron [Mass/Vol] 12.0 ug/dL Critically low 50.0-170.0 [facility] Comment on above: Performed By: #### C VDTBH #### [facility] [address] [place] [address] Dr. Kayley Hatfield TIBC DIRECT 532.0 ug/dL Critically high 250.0-450.0 [facility] Comment on above: Performed By: #### C VDTBH #### [facility] [address] [place] [address] Dr. Kayley Hatfield OCC BLD IMMUNO SCREENon 02-07 OCCULT BLOOD Negative Normal NEGATIVE [facility] Comment on above: Performed By: #### O BSCRN #### [facility] [address] [place] [address] Dr. Kayley Hatfield PROF 14(COMP METB)on 022 Albumin [Mass/Vol] 3.6 g/dL Normal 3.4-5.0 [facility] Comment on above: Performed By: #### H GBHCT #### [facility] [address] [place] [address] Dr. Kayley Hatfield Albumin/Globulin [Mass ratio] 1.2 {ratio} Normal [facility] Comment on above: Performed By: #### H GBHCT #### [facility] [address] [place] [address] Dr. Kayley Hatfield ALP [Catalytic activity/Vol] 71 U/L Normal 46-116 [facility] Comment on above: Performed By: #### H GBHCT #### [facility] [address] [place] [address] Dr. Kayley Hatfield ALT [Catalytic activity/Vol] 20 U/L Normal 14-59 [facility] Comment on above: Performed By: #### H GBHCT #### [facility] [address] [place] [address] Dr. Kayley Hatfield Anion gap [Moles/Vol] 9.8 mmol/L Normal [facility] Comment on above: Performed By: #### H GBHCT #### [facility] [address] [address] [address] Kayley Hatfield AST [Catalytic activity/Vol] 12 U/L Critically low 15-37 [facility] Comment on above: Performed By: #### H GBHCT #### [facility] [address] [address] [address] Kayley Hatfield Bilirubin [Mass/Vol] 0.4 mg/dL Normal 0.2-1.0 [facility] Comment on above: Performed By: #### H GBHCT #### [facility] [address] [address] [address] Kayley Hatfield Calcium [Mass/Vol] 9.0 mg/dL Normal 8.5-10.1 [facility] Comment on above: Performed By: #### H GBHCT #### [facility] [address] [address] [address] Kayley Hatfield Chloride [Moles/Vol] 99 mmol/L Normal 98-107 [facility] Comment on above: Performed By: #### H GBHCT #### [facility] [address] [address] [address] Kayley Hatfield CO2 [Moles/Vol] 31.5 mmol/L Normal 21.0-32.0 [facility] Comment on above: Performed By: #### H GBHCT #### [facility] [address] [address] [address] Kayley Hatfield Creatinine [Mass/Vol] 0.89 mg/dL Normal 0.55-1.02 [facility] Comment on above: Performed By: #### H GBHCT #### [facility] [address] [address] [address] Kayley Hatfield EGFR-AF CAMEROONIAN >60 Normal >=60 [facility] Comment on above: Performed By: #### H GBHCT #### [facility] [address] [address] [address] Kayley Hatfield EGFR-NON AF CAMEROONIAN >60 Normal >=60 [facility] Comment on above: Performed By: #### H GBHCT #### [facility] [address] [address] [address] Kayley Hatfield Globulin (S) [Mass/Vol] 3.1 g/dL Normal [facility] Comment on above: Performed By: #### H GBHCT #### [facility] [address] [address] [address] Kayley Hatfield Glucose [Mass/Vol] 174 mg/dL Critically high 74-106 [facility] Comment on above: Performed By: #### H GBHCT #### [facility] [address] [address] [address] Kayley Hatfield Potassium [Moles/Vol] 4.3 mmol/L Normal 3.5-5.1 [facility] Comment on above: Performed By: #### H GBHCT #### [facility] [address] [address] [address] Kayley Hatfield Protein [Mass/Vol] 6.7 g/dL Normal 6.4-8.2 [facility] Comment on above: Performed By: #### H GBHCT #### [facility] [address] [address] [address] Kayley Hatfield Sodium [Moles/Vol] 136 mmol/L Normal 136-145 [facility] Comment on above: Performed By: #### H GBHCT #### [facility] [address] [address] [address] Kayley Hatfield Urea nitrogen [Mass/Vol] 17.0 mg/dL Normal 7.0-18.0 [facility] Comment on above: Performed By: #### H GBHCT #### [facility] [address] [address] [address] Kayley Hatfield Urea nitrogen/Creatinine [Mass ratio] 19.1 mg/mg Normal [facility] Comment on above: Performed By: #### H GBHCT #### [facility] [address] [address] [address] Kayley Hatfield TROPONIN, HIGH SENSITIVITYon 03-06-2022 HSTROP 7.0 pg/mL Normal 4.0-51.3 [facility] Comment on above: Result Comment: CUT- OFF POINTS HAVE BEEN ESTABLISHED BASED ON THE FOURTH UNIVERSAL DEFINITIONS OF MYOCARDIAL INFARCTION. THE UPPER REFERENCE LIMIT (URL) OF TROPONIN, DEFINED THE 99TH PERCENTILE OF cTnI DISTRIBUTION IN A REFERENCE POPULATION, HAS BEEN CONFIRMED THE DECISION THRESHOLD FOR ME DIAGNOSIS. Performed By: #### H GBHCT #### [facility] [address] [place], [place] [address] Dr. Kayley Hatfield TYPE AND SCREENon 03-06-2022 TYPE AND SCREEN Negative Normal [facility] Comment on above: Performed By: #### C VDTBH #### [facility] [address] [place], [place] [address] Dr. Kayley Hatfield XR CHEST 1 Von [...] MIGUE REYNOSO Date: 2022-03-06 16:10 Normal [facility] XR CHEST 1 V EXAMINATION: [...] by: MIGUE REYNOSO Date: 2022-03-06 14:39 Normal [facility] XR DEXA BONE DENSITYon 12-22 XR [...] MIGUE REYNOSO Date: 2021-12-22 17:05 Normal [facility] CARDIAC ABDIAZIZ ADMITon 022 CK [Catalytic activity/Vol] 21 U/L Critically low 26-192 [facility] Comment on above: Performed By: #### B [id number] #### [facility] [address] [address] [address] Kayley Hatfield CK.MB [Mass/Vol] 1.00 ng/mL Normal <=3.60 [facility] Comment on above: Performed By: #### B LDCX1 #### [facility] [address] [address] [address] Kayley Hatfield HSTROP 11.6 pg/mL Normal 4.0-51.3 [facility] Comment on above: Result Comment: CUT- OFF POINTS HAVE BEEN ESTABLISHED BASED ON THE FOURTH UNIVERSAL DEFINITIONS OF MYOCARDIAL INFARCTION. THE UPPER REFERENCE LIMIT (URL) OF TROPONIN, DEFINED THE 99TH PERCENTILE OF cTnI DISTRIBUTION IN A REFERENCE POPULATION, HAS BEEN CONFIRMED THE DECISION THRESHOLD FOR ME DIAGNOSIS. Performed By: #### B [id number] #### [facility] [address] [address] [address] Kayley Hatfield ROD 48 ng/mL Normal 9-82 [facility] Comment on above: Performed By: #### B [id number] #### [facility] [address] [address] [address] Kayley Hatfield CBC AUTO DIFFon 12-14-2021 BASO # 0.1 103/ul Normal 0.0-0.1 [facility] Comment on above: Performed By: #### P RBC #### [facility] [address] [address] [address] Kayley Hatfield Basophils/100 WBC (Bld) 0.9 % Normal 0.2-2.0 [facility] Comment on above: Performed By: #### P RBC #### [facility] [address] [address] [address] Kayley Hatfield EO # 0.1 103/ul Normal 0.0-0.7 [facility] Comment on above: Performed By: #### P RBC #### [facility] [address] [place] [address] Dr. Kayley Hatfield Eosinophils/100 WBC (Bld) 0.5 % Critically low 0.9-7.0 [facility] Comment on above: Performed By: #### P RBC #### [facility] [address] [place] [address] Dr. Kayley Hatfield Erythrocyte distribution width (RBC) [Ratio] 15.4 % Critically high 11.0-15.0 [facility] Comment on above: Performed By: #### P RBC #### [facility] [address] [place] [address] Dr. Kayley Hatfield Hematocrit (Bld) [Volume fraction] 29.3 % Critically low 36.0-48.0 [facility] Comment on above: Performed By: #### P RBC #### [facility] [address] [place] [address] Dr. Kayley Hatfield Hemoglobin (Bld) [Mass/Vol] 8.3 g/dL Critically low 12.0-16.0 [facility] Comment on above: Performed By: #### P RBC #### [facility] [address] [place] [address] Dr. Kayley Hatfield IG # 0.05 10e3/ul Critically high 0.00-0.03 [facility] Comment on above: Performed By: #### P RBC #### [facility] [address] [address] [address] Kayley Hatfield IG % 0.4 % Normal 0.0-0.5 [facility] Comment on above: Performed By: #### P RBC #### [facility] [address] [address] [address] Kayley Hatfield LYMPH # 1.2 103/ul Normal 1.2-3.8 [facility] Comment on above: Performed By: #### P RBC #### [facility] [address] [address] [address] Kayley Hatfield Lymphocytes/100 WBC (Bld) 10.6 % Critically low 20.5-60.0 [facility] Comment on above: Performed By: #### P RBC #### [facility] [address] [place] [address] Dr. Kayley Hatfield MANUAL DIFF REQ NO Normal [facility] Comment on above: Performed By: #### P RBC #### [facility] [address] [place] [address] Dr. Kayley Hatfield MCH (RBC) [Entitic mass] 21.4 pg Critically low 26.7-34.0 [facility] Comment on above: Performed By: #### P RBC #### [facility] [address] [place] [address] Dr. Kayley Hatfield MCHC (RBC) [Mass/Vol] 28.3 g/dL Critically low 29.9-35.2 [facility] Comment on above: Performed By: #### P RBC #### [facility] [address] [place] [address] Dr. Kayley Hatfield MCV (RBC) [Entitic vol] 75.5 fL Critically low 81.0-99.0 [facility] Comment on above: Performed By: #### P RBC #### [facility] [address] [place] [address] Dr. Kayley Hatfield MONO # 0.9 103/ul Critically high 0.3-0.8 [facility] Comment on above: Performed By: #### P RBC #### [facility] [address] [address] [address] Kayley Hatfield Monocytes/100 WBC (Bld) 7.6 % Normal 1.7-12.0 [facility] Comment on above: Performed By: #### P RBC #### [facility] [address] [address] [address] Kayley Hatfield NEUT # 9.2 103/ul Critically high 1.4-6.5 [facility] Comment on above: Performed By: #### P RBC #### [facility] [address] [address] [address] Kayley Hatfield Neutrophils/100 WBC (Bld) 80.0 % Critically high 43.0-75.0 [facility] Comment on above: Performed By: #### P RBC #### [facility] [address] [place] [address] Dr. Kayley Hatfield Platelet mean volume (Bld) [Entitic vol] 9.3 fL Critically low 9.5-13.5 [facility] Comment on above: Performed By: #### P RBC #### [facility] [address] [address] [address] Kayley Hatfield PLT 498 103/ul Critically high 150-450 [facility] Comment on above: Performed By: #### P RBC #### [facility] [address] [place] [address] Dr. Kayley Hatfield RBC 3.88 106/ul Critically low 4.20-5.40 [facility] Comment on above: Performed By: #### P RBC #### [facility] [address] [place] [address] Dr. Kayley Hatfield WBC 11.5 103/ul Critically high 4.0-11.0 [facility] Comment on above: Performed By: #### P RBC #### [facility] [address] [place] [address] Dr. Kayley Hatfield ER URINE PROFILEon 2 Bilirubin Ql (U) Negative Normal NEGATIVE [facility] Comment on above: Performed By: #### H GBHCT #### [facility] [address] [place], [place] [id number] Dr. Kayley Hatfield Clarity (U) CLEAR Normal CLEAR [facility] Comment on above: Performed By: #### H GBHCT #### [facility] [address] [place] [address] Dr. Kayley Hatfield Color (U) LT. YELLOW Normal YELLOW [facility] Comment on above: Performed By: #### H GBHCT #### [facility] [address] [place] [address] Dr. Kayley Hatfield ERUAHD A micrscopic examination will be performed if indicated. Normal [facility] Comment on above: Performed By: #### H GBHCT #### [facility] [address] [place] [address] Dr. Kayley Hatfield Glucose Ql (U) Negative Normal NEGATIVE [facility] Comment on above: Performed By: #### H GBHCT #### [facility] [address] [place] [address] Dr. Kayley Hatfield Hemoglobin Ql (U) TRACE-INTACT Abnormal NEGATIVE [facility] Comment on above: Performed By: #### H GBHCT #### [facility] [address] [place] [address] Dr. Kayley Hatfield Ketones Ql (U) Negative Normal NEGATIVE [facility] Comment on above: Performed By: #### H GBHCT #### [facility] [address] [place] [address] Dr. Kayley Hatfield LEUKOCYTES Negative Normal NEGATIVE [facility] Comment on above: Performed By: #### H GBHCT #### [facility] [address] [place] [address] Dr. Kayley Hatfield Nitrite Ql (U) Negative Normal NEGATIVE [facility] Comment on above: Performed By: #### H GBHCT #### [facility] [address] [place] [address] Dr. Kayley Hatfield pH (U) 6.5 [pH] Normal 5-9 [facility] Comment on above: Performed By: #### H GBHCT #### [facility] [address] [place] [address] Dr. Kayley Hatfield SPEC GRAVITY 1.015 Normal 1.005-<=1.025 [facility] Comment on above: Performed By: #### H GBHCT #### [facility] [address] [place] [address] Dr. Kayley Hatfield UA PROTEIN Negative Normal NEGATIVE/ TRACE [facility] Comment on above: Performed By: #### H GBHCT #### [facility] [address] [place] [address] Dr. Kayley Hatfield UR MICRO IND INDICATED Normal [facility] Comment on above: Performed By: #### H GBHCT #### [facility] [address] [place] [address] Dr. Kayley Hatfield Urobilinogen Qn (U) 0.2 {Lu'U}/dL Normal 0.2 - 1. 0 [facility] Comment on above: Performed By: #### H GBHCT #### [facility] [address] [place] [address] Dr. Kayley Hatfield PROF 14(COMP METB)on 022 Albumin [Mass/Vol] 3.2 g/dL Critically low 3.4-5.0 [facility] Comment on above: Performed By: #### B [id number] #### [facility] [address] [place] [address] Dr. Kayley Hatfield Albumin/Globulin [Mass ratio] 0.8 {ratio} Normal [facility] Comment on above: Performed By: #### B [id number] #### [facility] [address] [place] [address] Dr. Kayley Hatfield ALP [Catalytic activity/Vol] 72 U/L Normal 46-116 [facility] Comment on above: Performed By: #### B [id number] #### [facility] [address] [place] [address] Dr. Kayley Hatfield ALT [Catalytic activity/Vol] 24 U/L Normal 14-59 [facility] Comment on above: Performed By: #### B [id number] #### [facility] [address] [place] [address] Dr. Kayley Hatfield Anion gap [Moles/Vol] 13.0 mmol/L Normal [facility] [place] [facility] Comment on above: Performed By: #### B [id number] #### [facility] [address] [place] [address] Dr. Kayley Hatfield AST [Catalytic activity/Vol] 18 U/L Normal 15-37 [facility] Comment on above: Performed By: #### B [id number] #### [facility] [address] [place] [address] Dr. Kayley Hatfield Bilirubin [Mass/Vol] 0.3 mg/dL Normal 0.2-1.0 [facility] Comment on above: Performed By: #### B [id number] #### [facility] [address] [place] [address] Dr. Kayley Hatfield Calcium [Mass/Vol] 9.9 mg/dL Normal 8.5-10.1 [facility] Comment on above: Performed By: #### B [id number] #### [facility] [address] [place] [address] Dr. Kayley Hatfield Chloride [Moles/Vol] 98 mmol/L Normal 98-107 [facility] Comment on above: Performed By: #### B [id number] #### [facility] [address] [place] [address] Dr. Kayley Hatfield CO2 [Moles/Vol] 29.8 mmol/L Normal 21.0-32.0 [facility] Comment on above: Performed By: #### B [id number] #### [facility] [address] [place] [address] Dr. Kayley Hatfield Creatinine [Mass/Vol] 1.23 mg/dL Critically high 0.55-1.02 [facility] Comment on above: Performed By: #### B [id number] #### [facility] [address] [place] [address] Dr. Kayley Hatfield EGFR-AF CAMEROONIAN 53 mL/min/1.73m2 Critically low >=60 [facility] Comment on above: Performed By: #### B LDCX1 #### [facility] [address] [place] [address] Dr. Kayley Hatfield EGFR-NON AF CAMEROONIAN 44 mL/min/1.73m2 Critically low >=60 [facility] Comment on above: Performed By: #### B LDCX1 #### [facility] [address] [address] [address] Kayley Hatfield Globulin (S) [Mass/Vol] 3.9 g/dL Normal [facility] Comment on above: Performed By: #### B LDCX1 #### [facility] [address] [address] [address] Kayley Hatfield Glucose [Mass/Vol] 160 mg/dL Critically high 74-106 [facility] Comment on above: Performed By: #### B LDCX1 #### [facility] [address] [place] [address] Dr. Kayley Hatfield Potassium [Moles/Vol] 3.8 mmol/L Normal 3.5-5.1 [facility] Comment on above: Performed By: #### B LDCX1 #### [facility] [address] [place] [address] Dr. Kayley Hatfield Protein [Mass/Vol] 7.1 g/dL Normal 6.4-8.2 [facility] Comment on above: Performed By: #### B LDCX1 #### [facility] [address] [place] [address] Dr. Kayley Hatfield Sodium [Moles/Vol] 137 mmol/L Normal 136-145 [facility] Comment on above: Performed By: #### B LDCX1 #### [facility] [address] [place] [address] Dr. Kayley Hatfield Urea nitrogen [Mass/Vol] 20.0 mg/dL Critically high 7.0-18.0 [facility] Comment on above: Performed By: #### B [id number] #### [facility] [address] [place] [address] Dr. Kayley Hatfield Urea nitrogen/Creatinine [Mass ratio] 16.3 mg/mg Normal [facility] Comment on above: Performed By: #### B LDCX1 #### [facility] [address] [place] [address] Dr. Kayley Hatfield TROPONIN, HIGH SENSITIVITYon 12-14-2021 HSTROP 11.3 pg/mL Normal 4.0-51.3 [facility] Comment on above: Result Comment: CUT- OFF POINTS HAVE BEEN ESTABLISHED BASED ON THE FOURTH UNIVERSAL DEFINITIONS OF MYOCARDIAL INFARCTION. THE UPPER REFERENCE LIMIT (URL) OF TROPONIN, DEFINED THE 99TH PERCENTILE OF cTnI DISTRIBUTION IN A REFERENCE POPULATION, HAS BEEN CONFIRMED THE DECISION THRESHOLD FOR ME DIAGNOSIS. Performed By: #### P RTELEC #### [facility] [address] [place] [address] Dr. Kayley Hatfield URINE MICROSCOPIC ONLYon BACTERIA NONE SEEN Normal NONE SEEN [facility] Comment on above: Performed By: #### H GBHCT #### [facility] [address] [place] [address] Dr. Kayley Hatfield Bacteria identified Cx Nom (U) NOT INDICATED Normal [facility] Comment on above: Performed By: #### H GBHCT #### [facility] [address] [place] [address] Dr. Kayley Hatfield CAST SEEN Abnormal NONE SEEN [facility] Comment on above: Performed By: #### H GBHCT #### [facility] [address] [place] [address] Dr. Kayley Hatfield Crystals LM Nom (Urine sed) NONE SEEN Normal NONE SEEN [facility] Comment on above: Performed By: #### H GBHCT #### [facility] [address] [place] [address] Dr. Kayley Hatfield Epithelial cells LM Ql (Urine sed) FEW Abnormal NONE SEEN /RARE [facility] Comment on above: Performed By: #### H GBHCT #### [facility] [address] [place] [address] Dr. Kayley Hatfield HYALINE CAST RARE Normal [facility] Comment on above: Performed By: #### H GBHCT #### [facility] [address] [place] [address] Dr. Kayley Hatfield MUCOUS NONE SEEN Normal NONE SEEN [facility] Comment on above: Performed By: #### H GBHCT #### [facility] [address] [place] [address] Dr. Kayley Hatfield RBC 0-2 Normal 0-2 [facility] Comment on above: Performed By: #### H GBHCT #### [facility] [address] [place] [address] Dr. Kayley Hatfield WBC 0-2 Abnormal NONE SEEN [facility] Comment on above: Performed By: #### H GBHCT #### [facility] [address] [place] [address] Dr. Kayley Hatfield XR CHEST 1 Von [...] ASAEL MALDONADO Date: 2021-12-14 13:43 Normal [facility] BUNon 12-12-2021 Urea nitrogen [Mass/Vol] 15.0 mg/dL Normal 7.0-18.0 [facility] Comment on above: Performed By: #### P RBC #### [facility] [address] [place] [address] Dr. Kayley Hatfield CALCIUMon 12-12-2021 Calcium [Mass/Vol] 9.1 mg/dL Normal 8.5-10.1 [facility] Comment on above: Performed By: #### C VDTBH #### [facility] [address] [place] [address] Dr. Kayley Hatfield CREATININEon 12-12-2021 Creatinine [Mass/Vol] 1.05 mg/dL Critically high 0.55-1.02 [facility] Comment on above: Performed By: #### P RBC #### [facility] [address] [place] [address] Dr. Kayley Hatfield EGFR-AF CAMEROONIAN >60 Normal >=60 [facility] Comment on above: Performed By: #### P RBC #### [facility] [address] [place] [address] Dr. Kayley Hatfield EGFR-NON AF CAMEROONIAN 53 mL/min/1.73m2 Critically low >=60 [facility] Comment on above: Performed By: #### P RBC #### [facility] [address] [place] [address] Dr. Kayley Hatfield CRPon 12-12-2021 CRP [Mass/Vol] mg/L Normal <=1.0 The [facility] Comment on above: Performed By: #### P RBC #### [facility] [address] [place] [address] Dr. Kayley Hatfield MAGNESIUMon 12-12-2021 Magnesium [Mass/Vol] 1.9 mg/dL Normal 1.8-2.4 [facility] Comment on above: Performed By: #### C VDTBH #### [facility] [address] [place] [address] Dr. Kayley Hatfield PHOSPHORUSon 12-12-2021 Phosphate [Mass/Vol] 4.1 mg/dL Normal 2.6-4.7 [facility] Comment on above: Performed By: #### C VDTBH #### [facility] [address] [place] [address] Dr. Kayley Hatfield SED RATE WESTERGRENon 2021 SED RATE 35 mm/hr Critically high <=30 [facility] Comment on above: Performed By: #### P RTELEC #### [facility] [address] [place] [address] Dr. Kayley Hatfield Vital Signs Date Time Vital Sign Value Performing Clinician Clarisse marin 06-26-2023 15:27-0500 Diastolic blood pressure 103 mm[Hg] MD Erasto Burroughs Work Phone: [facility] 06-26-2023 15:27-0500 Heart rate 81 /min MD Erasto Burroughs Work Phone: [facility] 06-26-2023 15:27-0500 Respiratory rate 18 /min MD Erasto Burroughs Work Phone: [facility] 06-26-2023 15:27-0500 SaO2% (BldA) [Mass fraction] 95 % MD Erasto Burroughs Work Phone: [facility] 06-26-2023 15:27-0500 Systolic blood pressure 162 mm[Hg] MD Erasto Burroughs Work Phone: [facility] 06-26-2023 13:44-0500 Body height 162.56 cm MD Erasto Burroughs Work Phone: [facility] 06-26-2023 13:44-0500 Body weight 59.87 kg MD Erasto Burroughs Work Phone: [facility] 06-26-2023 13:44-0500 Inhaled oxygen flow rate 2 L/min MD Erasto Burroughs Work Phone: [facility] Encounters Encounter Date Encounter Type Care Provider Facility Start: 11-10-[address] [facility] ty:[facility] Start: 05-12-2024 End: 05-12-2024 ambulatory Ihsan BROWN Facility:[facility] Start: 04-29-2024 End: 04-30-2024 Refill Erasto Burroughs MD Work Phone: [facility] Comment on above: DDD (degenerative di sc disease), lumbar Start: 02-21-2024 End: 02-21-2024 ambulatory ERASTO BURROUGHS Not Available Start: 01-07-2024 End: 01-07-2024 ambulatory [facility] Start: 11-09-2023 End: 11-09-2023 ambulatory Ihsan BROWN Facility:[facility] Start: 08-18-2023 Refill Erasto Leggett Work Phone: [facility] Comment on above: DDD (degenerative di sc disease), lumbar (Primary Dx) Start: 06-27-2023 ambulatory [facility] Start: 06-26-2023 End: 06-26-2023 ambulatory Remy Lorrie Givens Facility:[facility] Start: 06-26-2023 End: 06-26-2023 Admission to same day surgery center MD Erasto Burroughs Work Phone: [facility] Work Phone: Start: 06-26-2023 End: 06-26-2023 ambulatory MD Erasto Burroughs Work Phone: [facility] Work Phone: Start: 06-14-2023 End: 06-14-2023 ambulatory [facility] Not Available Start: 06-05-2023 [facility] Start: 06-05-2023 Evaluation and management of inpatient [facility] Start: 06-05-2023 Evaluation and management of inpatient [facility] Start: 06-04-2023 End: 06-06-2023 Evaluation and management of inpatient AVINASH SERRANO [facility] Start: 05-15-2023 ambulatory Iman Jeter [facility] [...] examination without abnormal findings DR ERASTO BURROUGHS [facility] Start: 03-30-[address] ERASTO BURROUGHS Facil ity:[facility] Start: 03-29-2022 Encounter for genera l adult medical examination without abnormal findings DR ERASTO BURROUGHS [facility] Start: 03-28-2022 End: 03-30-2022 Evaluation and management of inpatient DR ERASTO BURROUGHS Facility:[facility] Start: 03-28-2022 End: 03-29-[address] ERASTO BURROUGHS Facility:[facility] Start: 03-28-2022 End: 03-29-2022 Encounter for general adult medical examination without abnormal findings DR ERASTO BURROUGHS Facility:[facility] Start: 03-08-2022 End: 03-15-2022 Evaluation and management of inpatient IMAN WILLIS Facility:[facility] Start: 03-06-2022 End: 03-08-2022 Evaluation and [...] Screening for malign ant neoplasm of colon [facility] Start: 04-15-2026 Glaucoma screening Diabetes: R etinopathy Screening [facility] Start: 09-08-2024 Hemoglobin A1c measurement Diabetes: Hemoglobin A1C [facility] Start: 06-06-2024 Urine screening for protein Diabetes: Urine Protein Screening [facility] Start: 05-27-2024 End: 05-27-2024 Patient encounter procedure 05/27/2024 1:30 PM EST Office Visit [facility] [address] [place] [phone] Erasto Burroughs MD [address] [place] [phone] [facility] Start: 03-09-2024 Influenza vaccination Influenza Vacc ine (#1) [facility] Start: 09-05-2023 Hemoglobin A1c measurement Diabetes: Hemoglobin A1C [facility] Start: 08-27-2023 End: 08-27-2023 Patient encounter procedure 08/27/2023 2:30 PM EST Office Visit [facility] [address] [place] [phone] Erasto Burroughs MD [address] [place] [phone] [facility] Start: 06-26-2023 [facility] Start: 03-09-2023 Influenza vaccination Influenza Vacc ine (#1) [facility] Start: 1997 Screening for malign ant neoplasm of breast Mammogram [facility] Start: 1976 Urine screening for protein Diabetes: Urine Protein Screening [facility] Start: 1967 Glaucoma screening Diabetes: R etinopathy Screening [facility] Start: 1957 Screening for malign ant neoplasm of colon [facility] Patient Education Esophageal Dilation [facility] Work Phone: Payers Date Payer Category Payer Medicare [id number] 2023 Self-pay [id number] 2022 Private Health Insurance [facility] [id number] 2022 Unknown [employer] [id number] 2022-Present [phone] [address] [address] [place] [address] [id number]. [id number] 2013 Medicare [id number] 1.13.693. [id number] 1959 Medicare [id number] 1959 Unknown [id number] 1959 Unknown [id number] 1957 Unknown [id number] .840.1.194759.3.579. 2.647 1957 Unknown [id number] .16.840.1.312739.3.579. 2.593 1957 Unknown [id number] 2.16.840.1.498480.3.579. 2.593 1957 Unknown [id number] .16.840.1.117411.3.579. 2.593 1957 Unknown [id number] 2.16.840.1.796353.3.579. 2.593 1957 Unknown [id number] 2.16.840.1.726032.3.579. 2.593 1957 Unknown [id number] 2.16.840.1.666920.3.579. 2.593 1957 Unknown [id number] 2.16.840.1.560977.3.579. 2.593 1957 Unknown [id number] 2.16.840.1.863454.3.579. 2.59 1957 Unknown [id number] 2.16.840.1.009272.3.579. 2.59 1957 Unknown [id number] 2.16.840.1.641669.3.579. 2.593 1957 Unknown [id number] 2.16.840.1.127533.3.579. 2.59 1957 Unknown [id number] 2.16.840.1.271468.3.579. 2.59 1957 Unknown [id number] 2.16.840.1.940492.3.579. 2.593 1957 Unknown [id number] 2.16.840.1.262565.3.579. 2.1259 1957 Unknown [id number] 2.16.840.1.074244.3.579. 2.1259 1957 Unknown [id number] 2.16.840.1.541249.3.579. 2.727 1957 Unknown [id number] 2.16.840.1.269658.3.579. 2.727 1957 Unknown [id number] 2.16.840.1.738328.3.579. 2.727 1957 Unknown [id number] 2.16.840.1.322366.3.579. 2.72 Unknown [id number] 2.16.840.1.617792.3.579. 2.531 Social History Date Type Detail Facility Start: 06-14-2023 End: 06-26-2023 Tobacco smoking status NHIS Ex-smoker (finding) [facility] Start: 1955 Sex Assigned At Female F [facility] Start: 03-06-1982 End: 03-06-2022 History of tobacco use Current smoker [facility] Start: 03-06-1982 End: 03-06-2022 History of tobacco use Cigarette Smoker [facility] Start: 06-14-2023 End: 02-21-2024 Cigarettes smoked current (pack per day) - Reported 2 [facility] Start: 06-14-2023 Tobacco use and exposure Smokeless tobacco non-user [facility] Start: 06-14-2023 End: 02-21-2024 Alcohol intake Ex-drinker (finding) [facility] Start: 06-14-2023 End: 02-21-2024 Tobacco use panel [facility] Start: 06-14-2023 Alcohol Comment caffine-2 cups daily [facility] Start: 1955 Sex Assigned At Not on file [facility] [place] [place] [facility] Goals Date Patient Goal Desired Activity [...] including vitamins, herbs, eye drops, creams, and oegi-shs-nsdqjzc medicines. ??? Any problems you or family [...] your provider tells you to. ??? Taking ayib-jlm-weebrmp medicines, vitamins, herbs, and supplements. General instructions [...] these instructions at home: Medicines ??? Take pvrq-zlp-qfnmvpg and prescription medicines only as told by [...] to prevent or treat constipation: ? Take swus-cwq-ctafxjs or prescription medicines. ? Eat foods that [...] soft tube (catheter) (more content not included)... [facility] 01-07-2024 Note MS Cardiology - [facility] Subjective Lise Canales is a 68 y.o. year old female patient being seen for 6 mo follow up CAD and hypertension. She was admitted to [facility] 2 weeks ago for severe sepsis and pneumonia. Denies chest pain. Says she's been getting dizzy when she stands up. Patient Active Problem List Diagnosis Abdominal pain Altered mental status Angina pectoris ([facility]) Benign essential hypertension Candidiasis of mouth COPD [...] Prior additional history: She was admitted to [facility] in 10/2017 with sudden onset symptoms [...] smoking. On 06/04/2023 she was admitted to [facility] transferred from the [facility] due to pneumonia. In that setting she was found to have minimally elevated troponin. Her echocardiogram and EKG were nonrevealing. She was discharged on medical therapy. In December 2023 she was admitted to the [facility] with pneumonia and sepsis. In that [...] respiratory distress. Breath (more content not included)... [facility] 06-27-2023 Note MS Cardiology - [facility] Subjective Lise Zamudiot is a 68 y.o. year old female patient being seen for follow up [facility] for NSTEMI. 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 On 06/04/2023 she was admitted to [facility] transferred from the [facility] due to pneumonia. In that setting [...] Judgment normal. All (more content not included)... [facility] 06-26-[address] [facility] 06-06-2023 Note Hospital Medicine Discharge Summary Final Discharge Diagnosis: Community acquired pneumonia of right lower lobe of lung Admission Diagnosis: NSTEMI (non-ST elevated myocardial infarction) (CMS/HCC) [I21.4] Hospital course: 68 years old female lady with a medical history of hypertension, hyperlipidemia, gastroesophageal reflux disease, carotid disease, fibromyalgia, arthritis, polymyalgia rheumatica, COPD, temporal arteritis, and psoriasis. Came into the [facility] ER as a transfer from [facility] for concern of chest pain and [...] HYDROcodone-acetaminophen 5-325 mg tablet Commonly known as: [place] melatonin 5 mg tablet metoprolol tartrate 25 [...] Your Medications These medications were sent to [id number] AT [address] [address] cefdinir 300 mg capsule doxycycline 100 mg capsule Lise is allergic to azithromycin and latex. Disposition: Home-Health Care [facility] Discharge Condition: Stable Code Status: Prior Diagnostic [...] rhythm. Lungs: C (more content not included)... [facility] 06-06-2023 Note 06/06/23 1019 Referral Data Referral Source youth worker Activities of Daily Living Communication Talks;Understands speaking Discharge Planning Support Systems Spouse/significant other Patient's goal for discharge home Screened by [facility]; no social work needs at this time [facility] 06-05-2023 Note 06/05/23 1505 Admission Assessment [...] Yes Does the patient have a case preparer and liner assigned to them through their insurance? [...] Yes Type of Residence/Post Acute Needs Private residence;[facility] Is PT/OT appropriate? No Is PT/OT ordered? No Is SW consult appropriate? Yes Is SW consult ordered? Yes Do you understand the benefits of MyChart? Yes Were you able to send link and activate MyChart? MyChart already active [facility] 06-05-2023 Note . Hospital Medicine History and Physical 06/05/2023 1:22 AM THE HOSPITALIST TEAM PREFERS TO USE [employer] CHAT FOR COMMUNICATION 7AM-7PM. IF I DO NOT RESPOND WITHIN 15 MINUTES, PLEASE PAGE ME/CALL THROUGH THE STOCKKEEPER. FROM 7PM-7AM, PLEASE PAGE [phone](COVR) Chief Complaint No chief complaint on file. History of Present Illness Lise Canales is an 68 y.o. female who came from home with NSTEMi. This is a 68 years old female lady with a medical history of hypertension, hyperlipidemia, gastroesophageal reflux disease, carotid disease, fibromyalgia, arthritis, polymyalgia rheumatica, COPD, temporal arteritis, and psoriasis. Came into the [facility] ER as a transfer from [facility] for concern of chest pain and [...] Date Noted NSTEMI (non-ST elevated myocardial infarction) ([facility]) 06/05/2023 Acute on chronic respiratory failure with hypoxia ([facility]) 04/01/2022 Anemia, unspecified 04/01/2022 Recurrent spontaneous pneumothorax 03/30/2022 Giant cell arteritis with polymyalgia rheumatica ([facility]) 10/11/2021 Pneumothorax on left 08/02/2016 Coronary atherosclerosis 06/15/2014 Dyslipidemia 06/15/2014 Status post percutaneous transluminal coronary angioplasty 06/15/2014 Angina pectoris ([facility]) 05/04/2014 Electrocardiogram abnormal 05/04/2014 Abdominal pain 04/24/2014 Altered mental status 04/24/2014 Benign essential hypertension 04/24/2014 Congestive heart failure ([facility]) 04/24/2014 Dyspnea 04/24/2014 Gastroesophageal reflux disease 04/24/2014 History of psychiatric disorder 04/24/2014 Hyperlipidemia 04/24/2014 Headache 04/24/2014 Raynaud's disease 04/24/2014 Other and unspecified noninfectious gastroenteritis and colitis(558.9) 05/15/2007 Candidiasis of mouth 04/17/2007 COPD (chronic obstructive pulmonary disease) ([facility]) 04/17/2007 Diarrhea 04/17/2007 Loss of weight 04/17/2007 Other psoriasis 04/17/2007 Psoriatic arthropathy ([facility]) 04/17/2007 Other pneumothorax 03/30/2022 Assessment and Plan [...] over 92 -Scheduled (more content not included)... [facility] 03-15-2022 Note MR#: [id number] [facility] Pt. Name: Lise Canales Admitted: 03/08/2022 [...] a 66-year-old female, who presented to the [facility] with shortness of breath and fatigue, [...] The patient was subsequently transferred to for [facility] for further workup, was admitted to [...] Penn MD Date Trans: 03/15/2022 04:48 P/gabriela [id number] cc: Erasto Burroughs M.D. [address] [facility] [address] [facility] 03-13-2022 Note MR#: [id number] [facility] Pt. Name: Lise Canales Admitted: 03/08/2022 [...] Pineda MD Date Trans: 03/13/2022 10:30 Deandre/gabriela [id number] cc: Erasto Burroughs M.D. [address] [facility] [address] [facility] 03-09-2022 Note MR#: [id number] [facility] Pt. Name: Lise Canales Admitted: 03/05/2020 [...] gastritis, Helicobacter pylori infection, who presented to [facility] Emergency Department complaining of sudden onset [...] appointment with the primary care provider through [facility] for close followup for her anxiety and [...] 2 to 4 weeks. Follow up at [facility] on 03/16/2022 at 9:50 a.m. [...] from me. Date Dict: 03/08/2022/03:04 P/Paulette Mccord [facility] Date Trans: 03/09/2022 11:21 A/gabriela [id number] cc: Marti Poole M.D. [address] [facility] [address] Erasto Burroughs M.D. [address] Located within [facility] [address] [facility] Evaluation note No assessment inform ation available [facility] Work Phone: Evaluation [...] HealthcareHistory and physical note Author Remy Givens [facility] June 26, 2023 2:44pm Note Date/Time June 26, 2023 2:44pm [facility] [address] [place] [address] Gastroenterology H&P Signed Patient: Lise Canales MR#: [id number] : 1955 Acct:[id number] Age/Sex: 68 / F Adm Date: 3 Loc: Room: Type: [facility] Attending Dr: Remy Givens MD Copies to: [...] <Electronically signed by Remy Givens MD> 06/26/23 3748 [facility] Work Phone: Hospital Discharge [...] NOT operate machinery such as power tools, [employer] mowers, [employer] blowers, sewing machines, etc. for 24 hours. [...] problems. -Follow up with PCP. -Office number [phone].[facility] Work Phone: Summary Purpose Family History [...] and content) DATE CREATED AUTHOR 04/11/2022 [facility] DATE CREATED AUTHOR AUTHOR'S ORGANIZ ATION 11/04/2022 [facility] DATE CREATED AUTHOR AUTHOR'S ORGANIZ ATION 07/10/2023 [facility] DATE CREATED AUTHOR AUTHOR'S ORGANIZ ATION 02/14/2024 [facility] DATE CREATED AUTHOR AUTHOR'S ORGANIZ ATION 02/23/2024 [facility] EPIC DATE CREATED AUTHOR AUTHOR'S ORGANIZ ATION 05/13/2024 [facility] Care Teams (unrecognized sec tion and content) Team Status: Active Member Role Status Dates Erasto Burroughs MD Primary Care Provider Active Team Status: Inactive Member Role Status Dates Erasto Burroughs MD Primary Care Provider Active Remy Givens MD Attending Provider Active Assembly Line Inspector Relationship Specialty Start Date End Date Erasto Burroughs MD PCP - General Family Medicine 07/09/22 Assembly Line Inspector Relationship Specialty Start Date End Date Erasto Burroughs MD [address] [place] [address] PCP - General Family Medicine 02/21/24 Reason [...] BE BASED ON THE PRIMARY CLINICAL RECORDS. [facility]. provides no warranty or guarantee of the accuracy or completeness of information in this document.
--- NOTE | 2024-06-06 12:42 | PM.HP ---
HPI H&P: HPI History of Present Illness Chief complaint: SHORTNESS OF BREATH/R LOWER LOBE PNEUMONIA Narrative: 69-year-old female was in her usual state of health when she woke up earlier today and started to experience difficulty in breathing and productive cough. Patient has COPD and chronic dyspnea along with respiratory failure with hypoxia for which she uses oxygen at night. Patient's symptoms started earlier today and rapidly progressed to the point where she could not get comfortable her breathing. She also fever of 101 earlier today. Patient denies sick contacts. Patient was most recently in the hospital for his pyelonephritis in February when she received IV antibiotics. She also received oral Levaquin about a month ago for UTI. Patient reports feeling nauseous but denies vomiting. She also has dysuria and increased urinary frequency and thinks she may have a UTI again. Along with cough, dyspnea, she is also experiencing right lower chest wall pain that is pleuritic in nature. Patient uses prednisone chronically for temporal arteritis and polymyalgia rheumatica. Given her history of COPD, chronic immunosuppression from prednisone use and recent IV/oral antibiotic use, she is at high risk of infection from resistant organisms. Workup in ER is consistent with sepsis secondary to pneumonia for which she was admitted for IV antibiotic, IV fluids and close hemodynamic monitoring. Opioid HPI Opioid Management Most Recent Pain and Opioid Data: Last Pain Scale 5 02/18/24 20:11 02/18/24 Last Pain Intensity 0 03/06/23 15:53 03/06/23 Last Pain Assessment 06/06/24 13:36 Last ORT Total Score 1 06/06/24 12:14 06/06/24 Last ORT Risk Category Low Risk 06/06/24 12:14 06/06/24 Review of Systems ROS Status of ROS 10 or more systems reviewed and unremarkable except as noted in history and below [facility] Medical History (Updated 06/06/24 @ 12:45 by Shaikh Rick MD) Acute pyelonephritis ?N10 - Acute pyelonephritis (ICD-10) Sepsis ?A41.9 - Sepsis, unspecified organism (ICD-10) Immunosuppressed status ?D84.9 - Immunodeficiency, unspecified (ICD-10) Chronic steroid use Temporal arteritis ?M31.6 - Other giant cell arteritis (ICD-10) CKD stage 3b, GFR 30-44 ml/min ?N18.32 - Chronic kidney disease, stage 3b (ICD-10) Chronic respiratory failure with hypoxia ?J96.11 - Chronic respiratory failure with hypoxia (ICD-10) History of tobacco abuse ?Z87.891 - Personal history of nicotine dependence (ICD-10) CAD (coronary artery disease) ?I25.10 - Atherosclerotic heart disease of [place] coronary artery without angina pectoris (ICD-10) Essential hypertension ?I10 - Essential (primary) hypertension (ICD-10) Type 2 diabetes mellitus with hyperglycemia ?E11.65 - Type 2 diabetes mellitus with hyperglycemia (ICD-10) Polymyalgia rheumatica ?M35.3 - Polymyalgia rheumatica (ICD-10) Non-ST elevated myocardial infarction (non-STEMI) ?I21.4 - Non-ST elevation (NSTEMI) myocardial infarction (ICD-10) Hyperlipidemia ?E78.5 - Hyperlipidemia, unspecified (ICD-10) Hyperglycemia, drug-induced ?R73.9 - Hyperglycemia, unspecified (ICD-10) ?T50.905A - Adverse effect of unspecified drugs, medicaments and biological substances, initial encounter (ICD-10) COPD (chronic obstructive pulmonary disease) ?J44.9 - Chronic obstructive pulmonary disease, unspecified (ICD-10) Depression ?F32.A - Depression, unspecified (ICD-10) Acid reflux ?K21.9 - Gastro-esophageal reflux disease without esophagitis (ICD-10) Nerve pain ?M79.2 - Neuralgia and neuritis, unspecified (ICD-10) Back pain ?M54.9 - Dorsalgia, unspecified (ICD-10) Thoracotomy scar of right chest ?L90.5 - Scar conditions and fibrosis of skin (ICD-10) History of oxygen administration ?Z99.81 - Dependence on supplemental oxygen (ICD-10) UTI (urinary tract infection), bacterial ?N39.0 - Urinary tract infection, site not specified (ICD-10) ?A49.9 - Bacterial infection, unspecified (ICD-10) Urethral stenosis Surgical History (Updated 06/06/24 @ 12:14 by Janet Lopez RN) Status post bilateral cataract extraction ?Z98.41 - Cataract extraction status, right eye (ICD-10) ?Z98.42 - Cataract extraction status, left eye (ICD-10) 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 [part of] (ICD-10) Stented coronary artery ?Z95.5 - Presence of coronary angioplasty implant and graft (ICD-10) Family History Mother Family history of COPD (chronic obstructive pulmonary disease) Brother Family history of COPD (chronic obstructive pulmonary disease) Father Family history of COPD (chronic obstructive pulmonary disease) Family history of stroke Social History Within the past year, how often did you have a drink containing alcohol: never Within the past year, how many standard drinks containing alcohol did you have on a typical day: 1 or 2 Within the past year, how often did you have six or more drinks on one occasion: never Total score: 0 Score interpretation: A score less than 3 is consistent with normal alcohol consumption. Smoking status: Former smoker Non-prescribed substance use: denies use Previous occupational history: disabled Highest level of school completed/degree received: Associate degree: occupational, technical, vocational program Are you now , , , , never or living with a partner: Little interest or pleasure in doing things: several days Feeling down, depressed, or hopeless: several days Feel stressed/tense/nervous/anxious/difficulty sleeping: only a little Do you think of yourself as: straight/heterosexual Gender Identity: female Meds Home Medications and Allergies Home Medications ?Medication ?Instructions ?Recorded ?Confirmed ?Type aspirin 81 mg tablet,delayed 81 mg PO DAILY 03/06/23 06/06/24 History release atorvastatin 40 mg tablet 40 mg PO .QHS 03/06/23 06/06/24 History duloxetine 30 mg capsule,delayed 90 mg PO DAILY 03/06/23 06/06/24 History release eszopiclone 3 mg tablet (Lunesta) 3 mg PO .QHS PRN sleep 03/06/23 06/06/24 History melatonin 5 mg tablet 5 mg PO .QHS 03/06/23 06/06/24 History metoprolol tartrate 25 mg tablet 12.5 mg PO BID 03/06/23 06/06/24 History omeprazole 40 mg capsule,delayed 40 mg PO .BIDAC 03/06/23 06/06/24 History release pregabalin 100 mg capsule (Lyrica) 100 mg PO TID 03/06/23 06/06/24 History albuterol sulfate 90 mcg/actuation 2 puff inhalation Q4H PRN 12/18/23 06/06/24 History aerosol inhaler shortness of breath or wheezing amlodipine 5 mg tablet 5 mg PO QAM 12/18/23 06/06/24 History guaifenesin 600 mg tablet, 1,200 mg PO BID 12/18/23 06/06/24 History extended release 12 hr prednisone 5 mg tablet 10 mg PO DAILY 12/18/23 06/06/24 History cholecalciferol (vitamin D3) 50 50 mcg PO DAILY 02/14/24 06/06/24 History mcg (2,000 unit) capsule cranberry 500 mg capsule 500 mg PO DAILY 02/14/24 06/06/24 History ferrous sulfate 325 mg (65 mg 325 mg PO DAILY 02/14/24 06/06/24 History iron) tablet potassium chloride 20 mEq 20 meq PO DAILY PRN hypokalemia 02/14/24 06/06/24 History tablet,extended release estradiol 0.01% (0.1 mg/gram) 1 appful vaginal .QWK AT BEDTIME 06/06/24 06/06/24 History vaginal cream Allergies Allergy/AdvReac Type Severity Reaction Status Date / Time azithromycin (From Zithromax Allergy Severe Unknown Verified 02/18/24 18:30 Z-Leonardo) Latex, Natural Rubber Allergy Severe Unknown Verified 02/18/24 18:30 Exam Constitutional Vital Signs, click to edit/add: Last Vital Signs Temp 98.7 F 06/06/24 09:36 Pulse 108 H 06/06/24 12:25 Resp 37 H 06/06/24 11:30 BP 99/51 06/06/24 11:30 Pulse Ox 91 L 06/06/24 11:30 O2 Del Method Nasal Cannula 06/06/24 10:20 O2 Flow Rate 2 06/06/24 10:20 Documenting provider has reviewed patient's vital signs: yes Common normals: oriented x3 General appearance: cooperative and ill appearing [facility] Common normals: normocephalic and head/scalp atraumatic Head and scalp: normocephalic and atraumatic Eye Common normals: conjunctivae normal and no scleral icterus Conjunctiva: conjunctiva(e) normal Respiratory Common normals: normal respiratory effort Effort & inspection: tachypneic and actively coughing productive and moist Auscultation: clear to auscultation bilaterally and diminished lung sounds bilateral in the lower lung conrad Other: Appears SOB at rest Cardio Common normals: regular rate, S1 normal heart sound and S2 normal heart sound Rate: regular rate Heart sounds: S1 normal and S2 normal GI Common normals: Normal to inspection, nondistended, normoactive bowel sounds present, soft to palpation, non-tender and no hepatosplenomegaly Palpation: soft and no hepatosplenomegaly Back & Pelvis Other: Tenderness along right posterior chest wall on palpation Extremity Common normals: no clubbing, cyanosis or edema Neuro Common normals: oriented x3, moves all extremities and no focal motor deficits Psych Common normals: mental status grossly normal, denies hallucinations, denies homicidal ideation and denies suicidal ideation Results Labs Labs: Short CBC 06/06/24 Range/Units 10:14 WBC 15.9 H (4.0-11.0) 10^3/uL Hgb 14.8 (12.0-16.0) g/dL Hct 46.4 (36.0-48.0) % Plt Count 285 (150-450) 10^3/uL BMP 06/06/24 10:14 Sodium 139 Potassium 3.8 Chloride 103 Carbon Dioxide 24.0 BUN 26.0 H Creatinine 1.55 H Glucose 174 H Calcium 10.0 Assessment and Plan Assessment and Plan (1) Sepsis: Assessment and Plan: SIRS ( HR> 110-120, RR >30, WBC 15 K) qsofa ( RR> 30, SBP < 100) Source of infection: RLL PNA. Received one L IVF bolus. Ordered another 1 L IVF bolus. F/u sputum/blood cx. Started on broad spectrum abx - vancomycin/ceftazidime. Qualifiers: Sepsis acute organ dysfunction status: without acute organ dysfunction Sepsis type: sepsis due to unspecified organism Qualified Code(s): A41.9 - Sepsis, unspecified organism (2) Acute exacerbation of chronic obstructive pulmonary disease (COPD): Assessment and Plan: COPD exacerbation due to PNA. Started on solumedrol, duonebs. (3) Right lower lobe pneumonia: Assessment and Plan: RLL HAMMOND on CXR. Will treat for hospital acquire PNA with IV vancomycin/ceftazidime. Risk factors for MRSA/pseudomonas include - chronic steroid use, recent IV abx within 3 months. Finished oral Levaquin for UTI one month ago. F/u blood and sputum cx Pneumonia severity index --> class IV. Has 8-9% risk of mortality. Qualifiers: Pneumonia type: due to unspecified organism Qualified Code(s): J18.9 - Pneumonia, unspecified organism (4) Acute on chronic respiratory failure with hypoxia: Assessment and Plan: uses 2 L O2 at night. Currently 85% on 2 L. Patient tachypneic, dyspneic at rest. Keep Pulse Ox at 90%. Wean off O2 as tolerated. (5) Chronic respiratory failure with hypoxia: Assessment and Plan: Uses 2 L at night. (6) CAD (coronary artery disease): Assessment and Plan: Prior history of percutaneous coronary intervention about 2 years ago. No evidence of acute or active cardiac ischemia. Monitor. Continue with aspirin, Lipitor, Lopressor. Qualifiers: Associated angina: without angina Coronary Disease-Associated Artery/Lesion type: [place] artery [place] vs. transplanted heart: [place] heart Qualified Code(s): I25.10 - Atherosclerotic heart disease of [place] coronary artery without angina pectoris (7) CKD stage 3b, GFR 30-44 ml/min: Assessment and Plan: Renal function at baseline. Monitor serum creatinine/urine output closely. (8) Chronic steroid use: Assessment and Plan: For COPD/temporal arteritis and polymyalgia rheumatica. (9) Immunosuppressed status: Assessment and Plan: Immune suppressed status because of chronic prednisone therapy, type 2 diabetes and is at high risk of resistant organism due to recent antibiotic use, hospital admission, immunosuppressive status from prednisone therapy (10) Temporal arteritis: Assessment and Plan: Patient has history of temporal arteritis and polymyalgia rheumatica. She is on chronic prednisone therapy for it. (11) Polymyalgia rheumatica: Assessment and Plan: Chronically on prednisone for polymyalgia rheumatica and temporal arteritis (12) Essential hypertension: Assessment and Plan: Hold amlodipine. C/w low dose Lopressor with holding parameters. (13) Hyperlipidemia: Assessment and Plan: Continue with statin. Qualifiers: Hyperlipidemia type: mixed hyperlipidemia Qualified Code(s): E78.2 - Mixed hyperlipidemia
[2024-06-06] MEDS: PREGABALIN 100 MG CAPSULE PO ×2 (13:52→22:27)
[2024-06-06] MEDS: HEPARIN SODIUM (PORCINE) 5,000 UNIT/ML VIAL 5000 UNIT SUBQ ×2 (13:52→22:31)
[2024-06-06] MEDS: GUAIFENESIN 600 MG TAB.ER.12H 1200 MG PO ×2 (13:52→22:28)
[2024-06-06] MEDS: 0.9 % SODIUM CHLORIDE 1,000 ML 1000 ML IV (13:52)
--- NOTE | 2024-06-06 14:04 | SWNOTE1 ---
SW met with pt to discuss dc needs. Pt's in room as well. She stated he does the laundry and cooking. Pt does wear home oxygen at 2 liters. She does not have any services coming in right now. Pt is independent and does not use any devices, but has a walker if she ever does need it. Pt voiced she was doing well, but woke up feeling crappy. Pt has no concerns about discharge at this time and voiced she is feeling a little better already. SW to follow as needed.
[2024-06-06] MEDS: LACTATED RINGER'S SOLUTION 1,000 ML 125 ML IV ×2 (15:06→22:27)
[2024-06-06] MEDS: CEFTAZIDIME 2,000 MG in 0.9 % SODIUM CHLORIDE 100 ML 200 MG IV (15:10)
[2024-06-06] MEDS: VANCOMYCIN HCL 1,000 MG in 0.9 % SODIUM CHLORIDE 250 ML 250 MG IV (15:54)
[2024-06-06] MEDS: IPRATROPIUM/ALBUTEROL SULFATE 3 ML AMPUL.NEB IH ×2 (16:16→22:02)
--- NOTE | 2024-06-06 16:22 | RESP.RT ---
Addendum entered by Thao Pandey, FRONT END TECHNICIAN 06/06/24 16:22: Also added oxygen tubing extension to reach restroom Original Note: Pt walked to restroom on room air and dropped to 88%. Placed back on 2L
[2024-06-06] MEDS: OMEPRAZOLE 40 MG CAPSULE.DR PO (17:11)
[2024-06-06] MEDS: ACETAMINOPHEN 325 MG TABLET 650 MG PO (17:11)
[2024-06-06] MEDS: METHYLPREDNISOLONE SOD SUCC PF 40 MG/ML VIAL IVP (17:12)
[2024-06-06] MEDS: OXYCODONE HCL 5 MG TABLET PO (22:27)
[2024-06-06] MEDS: METOPROLOL TARTRATE 25 MG TABLET 12.5 MG PO (22:28)
[2024-06-06] MEDS: ATORVASTATIN CALCIUM 40 MG TABLET PO (22:28)
[2024-06-06] MEDS: ZOLPIDEM TARTRATE 5 MG TABLET PO (22:29)
[2024-06-07] VITALS (20 sets, daily range): BP systolic 122–151; BP diastolic 71–80; PULSE 83–109; TEMP 36.6–36.7; O2SAT 91–97
[2024-06-07] MEDS: METHYLPREDNISOLONE SOD SUCC PF 40 MG/ML VIAL IVP ×3 (02:29→16:50)
[2024-06-07] MEDS: CEFTAZIDIME 2,000 MG in 0.9 % SODIUM CHLORIDE 100 ML 200 MG IV (02:29)
[2024-06-07] MEDS: ACETAMINOPHEN 325 MG TABLET 650 MG PO ×3 (03:59→23:22)
[2024-06-07] MEDS: IPRATROPIUM/ALBUTEROL SULFATE 3 ML AMPUL.NEB IH ×4 (04:55→22:55)
[2024-06-07 06:07] LABS: Hematocrit 32.6 % (36.0-48.0); Hemoglobin 10.2 g/dL (12.0-16.0); Mean Corpuscular HGB Conc 31.3 g/dL (29.9-35.2); Mean Corpuscular Hemoglobin 30.4 pg (26.7-34.0); Mean Corpuscular Volume 97.3 fL (81.0-99.0); Mean Platelet Volume 9.3 fL (9.5-13.5); Platelet Count 268 10^3/uL (150-450); Red Blood Count 3.35 10^6/uL (4.20-5.40); Red Cell Distribution Width 13.2 % (11.0-15.0); White Blood Count 25.7 10^3/uL (4.0-11.0)
[2024-06-07 06:25] LABS: Lymphocytes Absolute Manual 0.25 10^3/uL (1.20-3.80); Monocytes Absolute Manual 0.51 10^3/uL (0.30-0.80); Segmented Neut Absolute Manual 24.41 10^3/uL (1.4-6.5)
[2024-06-07 06:26] LABS: Band Neutrophils Absolute 0.5 10^3/uL (0.0-0.3)
[2024-06-07] MEDS: OMEPRAZOLE 40 MG CAPSULE.DR PO ×2 (06:31→16:50)
[2024-06-07] MEDS: PREGABALIN 100 MG CAPSULE PO ×3 (06:31→21:11)
[2024-06-07] MEDS: LACTATED RINGER'S SOLUTION 1,000 ML 125 ML IV (06:32)
[2024-06-07] MEDS: HEPARIN SODIUM (PORCINE) 5,000 UNIT/ML VIAL 5000 UNIT SUBQ ×3 (06:32→21:10)
[2024-06-07 06:35] LABS: Alanine Aminotransferase 17 U/L (14-59); Albumin Globulin Ratio 0.7; Albumin Level 2.3 g/dL (3.4-5.0); Alkaline Phosphatase 60 U/L (46-116); Aspartate Amino Transferase 11 U/L (15-37); BUN Creatinine Ratio 15.1; Bilirubin Total 0.3 mg/dL (0.2-1.0); Calcium 8.6 mg/dL (8.5-10.1); Carbon Dioxide 21.2 mmol/L (21.0-32.0); Chloride 109 mmol/L (98-107); Estimated GFR (African America 41 (>=60 mL/min/1.73m^2); Estimated GFR (Non-African Ame 34 (>=60 mL/min/1.73m^2); Globulin 3.5 g/dL; Glucose 220 mg/dL (74-106); Potassium 4.2 mmol/L (3.5-5.1); Sodium 142 mmol/L (136-145); Total Protein 5.8 g/dL (6.4-8.2)
[2024-06-07] MEDS: DULOXETINE HCL 30 MG CAPSULE.DR 90 MG PO (09:21)
[2024-06-07] MEDS: CHOLECALCIFEROL (VITAMIN D3) 25 MCG/1,000 UNITS TABLET 50 MCG PO (09:21)
[2024-06-07] MEDS: GUAIFENESIN 600 MG TAB.ER.12H 1200 MG PO ×2 (09:21→21:11)
[2024-06-07] MEDS: ASPIRIN 81 MG TABLET.DR PO (09:21)
[2024-06-07] MEDS: METOPROLOL TARTRATE 25 MG TABLET 12.5 MG PO ×2 (09:22→21:11)
--- NOTE | 2024-06-07 11:03 | REH.PTDLY ---
Physical Therapy Daily Note PT Daily Note/Assess Start: 06/07/24 10:59 Freq: Status: Active Protocol: Document 06/07/24 10:20 MARS (Rec: 06/07/24 11:02 MARS [id number]) Physical Therapy Daily Note/Assessment Time In 10:07 Time Out 10:19 Subjective Pt states she has been getting up and down to go to the bathroom in room on her own. Feels as though she is just fine, agreeable to ambulate. Therapeutic Activity Minutes (minutes) 8 Therapeutic Activity Units 1 Therapeutic Activity Comments Pt Ind with all transfers. Gait training in room with 2 L of O2 and IV pole. Pt able to maneuver around room pushing IV pole and handling oxygen cord Ind. Ambulates forward, retro, and sideways about room and turns in circles with IV pole. No LOB or sway noted. Pt stood for 3 mins with UE support of IV pole. Total Therapy Minutes 8 Total Physical Therapy Units 1 Daily Note Summary Pt Ind in room with all transfers and gait training. Good standing balance noted. O2 sats did not drop while on 2 L of O2, staying at 94%. DC from PT at this time as goals are met.
[2024-06-07 11:37] LABS: Bilirubin Urine NEGATIVE (NEGATIVE); Blood Urine MODERATE (NEGATIVE); Clarity Urine CLEAR (CLEAR); Color Urine LT. YELLOW (YELLOW); Glucose Urine UA 250 mg/dL (NEGATIVE); Ketones Urine NEGATIVE (NEGATIVE); Leukocyte Esterase Urine TRACE (NEGATIVE); Nitrite Urine NEGATIVE (NEGATIVE); Protein Urine TRACE mg/dL (NEG/TRACE); Urobilinogen Urine 0.2 EU/dL (0.2-1.0)
[2024-06-07 11:58] LABS: Bacteria Urine TRACE #/HPF (NONE SEEN); RBC Urine 0-2 #/HPF (0-2)
[2024-06-07 11:59] LABS: Cast Seen? NONE SEEN #/LPF (NONE SEEN); Crystals Seen? None Seen #/HPF (None Seen); Mucus Urine NONE SEEN (NONE SEEN); Squamous Epithelial Cell Urine FEW #/LPF (NONE/RARE); Transitional Epi Cells Urine RARE #/LPF (NONE SEEN); Urine Culture Indicated YES
--- NOTE | 2024-06-07 13:07 | P.IMPN_ITS ---
Progress Note: A&P Assessment and Plan (1) Sepsis: Assessment and Plan: Resolved. F/u sputum and blood cx. C/w IV vancomycin/ceftazidime. Qualifiers: Sepsis type: sepsis due to unspecified organism Sepsis acute organ dysfunction status: without acute organ dysfunction Qualified Code(s): A41.9 - Sepsis, unspecified organism (2) Acute exacerbation of chronic obstructive pulmonary disease (COPD): Assessment and Plan: C/w solumedrol, duonebs. Improved but still bronchospastic and not moving air well. (3) Leukocytosis: Assessment and Plan: Worse, likely due to steroids. Clinically improving. Monitor closely. Qualifiers: Leukocytosis type: unspecified Qualified Code(s): D72.829 - Elevated white blood cell count, unspecified (4) Right lower lobe pneumonia: Assessment and Plan: F/u sputum and blood cx. On broad spectrum abx - vancomycin/ceftazidime. Qualifiers: Pneumonia type: due to unspecified organism Qualified Code(s): J18.9 - Pneumonia, unspecified organism (5) Acute on chronic respiratory failure with hypoxia: Assessment and Plan: On 2 L O2. Improved. Wean off as tolerated. (6) Chronic respiratory failure with hypoxia: Assessment and Plan: Prescribed O2 at night. Currently needing it continuously. (7) CAD (coronary artery disease): Qualifiers: Coronary Disease-Associated Artery/Lesion type: [place] artery [place] vs. transplanted heart: [place] heart Associated angina: without angina Qualified Code(s): I25.10 - Atherosclerotic heart disease of [place] coronary artery without angina pectoris (8) CKD stage 3b, GFR 30-44 ml/min: Assessment and Plan: Serum creatinine is more or less at baseline. Monitor closely. (9) Chronic steroid use: Assessment and Plan: Immunosuppression and high risk of resistant organisms because of chronic prednisone use and recent hospital admission with recent antibiotic use (10) Immunosuppressed status: Assessment and Plan: Due to chronic prednisone use. At high risk of resistant organisms. On IV Rocephin and level 1 (11) Temporal arteritis: Assessment and Plan: On prednisone daily for temporal arteritis and polymyalgia rheumatica. (12) Polymyalgia rheumatica: Assessment and Plan: On prednisone for polymyalgia rheumatica and temporal arteritis (13) Essential hypertension: Assessment and Plan: Blood pressure is stable. Continue with amlodipine. Monitor blood pressure. (14) Hyperlipidemia: Assessment and Plan: Continue with statin. Qualifiers: Hyperlipidemia type: mixed hyperlipidemia Qualified Code(s): E78.2 - Mixed hyperlipidemia (15) Type 2 diabetes mellitus with hyperglycemia: Assessment and Plan: Continue with sliding scale insulin. Qualifiers: Diabetes mellitus machine long goods helper insulin use: without machine long goods helper use Qualified Code(s): E11.65 - Type 2 diabetes mellitus with hyperglycemia Internal Medicine - PN: Subj Subjective Interval history: Seen and examined. No overnight events. Still on 2 L O2 but overall feels better. She is still SOB at rest and on minimal exertion. She is coughing thick green sputum. She feels that she can breath better. She still feels worn out and tired. Exam Constitutional Vital Signs, click to edit/add: Last Vital Signs Temp 98.0 F 06/07/24 04:08 Pulse 108 H 06/07/24 11:55 Resp 18 06/07/24 08:00 BP 133/72 06/07/24 09:00 Pulse Ox 97 06/07/24 11:15 O2 Del Method Nasal Cannula 06/07/24 11:15 O2 Flow Rate 1 06/07/24 11:15 Documenting provider has reviewed patient's vital signs: yes Common normals: oriented x3 General appearance: cooperative Respiratory Common normals: normal respiratory effort Effort & inspection: able to speak in complete sentences and actively coughing productive and moist Auscultation: diminished lung sounds bilateral in the lower lung conrad Other: Appears SOB at rest Cardio Common normals: regular rate, S1 normal heart sound and S2 normal heart sound Rate: regular rate Heart sounds: S1 normal and S2 normal GI Common normals: Normal to inspection, nondistended, normoactive bowel sounds present, soft to palpation, non-tender and no hepatosplenomegaly Palpation: soft and no hepatosplenomegaly Back & Pelvis Other: Tenderness along right posterior chest wall on palpation Extremity Common normals: no clubbing, cyanosis or edema Neuro Common normals: oriented x3, moves all extremities and no focal motor deficits Psych Common normals: mental status grossly normal, denies hallucinations, denies homicidal ideation and denies suicidal ideation Internal Medicine - PN: Obj Da Labs Labs: Laboratory Results - last 24 hr 06/07/24 06/07/24 05:49 11:00 WBC 25.7 H RBC 3.35 L Hgb 10.2 L Hct 32.6 L MCV 97.3 MCH 30.4 MCHC 31.3 RDW 13.2 Plt Count 268 MPV 9.3 L Seg Neuts % (Manual) 95.0 H Band Neutrophils % 2.0 Lymphocytes % (Manual) 1.0 L Monocytes % (Manual) 2.0 Eosinophils % (Manual) 0.0 L Basophils % (Manual) 0.0 L Neutrophils # (Manual) 24.41 H Band Neutrophils # 0.5 H Lymphocytes # (Manual) 0.25 L Monocytes # (Manual) 0.51 Eosinophils # (Manual) 0.00 Basophils # (Manual) 0.00 Sodium 142 Potassium 4.2 Chloride 109 H Carbon Dioxide 21.2 Anion Gap 16.0 BUN 23.0 H Creatinine 1.52 H Est GFR ( Amer) 41 L Est GFR (Non-Af Amer) 34 L BUN/Creatinine Ratio 15.1 Glucose 220 H Calcium 8.6 Total Bilirubin 0.3 AST 11 L ALT 17 Alkaline Phosphatase 60 Total Protein 5.8 L Albumin 2.3 L Globulin 3.5 Albumin/Globulin Ratio 0.7 Urine Color Lt. yellow Urine Clarity Clear Urine pH 6.0 Ur Specific [place] 1.020 Urine Protein Trace Urine Glucose (UA) 250 A Urine Ketones Negative Urine Occult Blood Moderate A Urine Nitrite Negative Urine Bilirubin Negative Urine Urobilinogen 0.2 Ur Leukocyte Esterase Trace A Urine RBC 0-2 Urine WBC 2-5 A Ur Squamous Epith Cells Few A Ur Transition Epith Cell Rare A Urine Crystals None seen Urine Bacteria Trace A Urine Casts None seen Urine Mucus None seen Ur Culture Indicated? Yes
[2024-06-07] MEDS: VANCOMYCIN HCL 1,000 MG in 0.9 % SODIUM CHLORIDE 250 ML 250 MG IV (14:30)
[2024-06-07] MEDS: 0.9 % SODIUM CHLORIDE 250 ML 10 ML IV (14:30)
[2024-06-07] MEDS: ATORVASTATIN CALCIUM 40 MG TABLET PO (21:11)
[2024-06-07] MEDS: OXYCODONE HCL 5 MG TABLET PO (21:12)
[2024-06-07] MEDS: ZOLPIDEM TARTRATE 5 MG TABLET PO (23:22)
[2024-06-08] VITALS (10 sets, daily range): BP systolic 139–154; BP diastolic 73–81; PULSE 76–104; TEMP 36.5–36.7; O2SAT 92–98
[2024-06-08] MEDS: METHYLPREDNISOLONE SOD SUCC PF 40 MG/ML VIAL IVP ×2 (00:44→09:47)
[2024-06-08] MEDS: ZOLPIDEM TARTRATE 5 MG TABLET PO (00:49)
[2024-06-08] MEDS: CEFTAZIDIME 2,000 MG in 0.9 % SODIUM CHLORIDE 100 ML 200 MG IV (03:58)
[2024-06-08] MEDS: OXYCODONE HCL 5 MG TABLET PO (04:09)
[2024-06-08] MEDS: IPRATROPIUM/ALBUTEROL SULFATE 3 ML AMPUL.NEB IH (04:19)
[2024-06-08] MEDS: HEPARIN SODIUM (PORCINE) 5,000 UNIT/ML VIAL 5000 UNIT SUBQ (05:25)
[2024-06-08] MEDS: PREGABALIN 100 MG CAPSULE PO (05:26)
[2024-06-08] MEDS: ACETAMINOPHEN 325 MG TABLET 650 MG PO (05:33)
[2024-06-08 06:27] LABS: Basophils Percent Auto 0.1 % (0.2-2.0); Hemoglobin 9.7 g/dL (12.0-16.0); Immature Granulocytes Abs Auto 0.22 10^3/uL (0.00-0.03); Immature Granulocytes Pct Auto 0.9 % (0.0-0.5); Lymphocytes Absolute Auto 0.2 10^3/uL (1.2-3.8); Lymphocytes Percent Auto 0.8 % (20.5-60.0); Mean Corpuscular HGB Conc 31.3 g/dL (29.9-35.2); Mean Corpuscular Hemoglobin 30.6 pg (26.7-34.0); Mean Corpuscular Volume 97.8 fL (81.0-99.0); Mean Platelet Volume 9.9 fL (9.5-13.5); Monocytes Absolute Auto 0.7 10^3/uL (0.3-0.8); Monocytes Percent Auto 2.6 % (1.7-12.0); Neutrophils Absolute Auto 24.3 10^3/uL (1.4-6.5); Neutrophils Percent Auto 95.6 % (43.0-75.0); Platelet Count 331 10^3/uL (150-450); Red Blood Count 3.17 10^6/uL (4.20-5.40); Red Cell Distribution Width 13.2 % (11.0-15.0); White Blood Count 25.4 10^3/uL (4.0-11.0)
[2024-06-08 06:38] LABS: Alanine Aminotransferase 17 U/L (14-59); Albumin Globulin Ratio 0.6; Albumin Level 2.4 g/dL (3.4-5.0); Alkaline Phosphatase 63 U/L (46-116); Anion Gap 15.9; Aspartate Amino Transferase 12 U/L (15-37); BUN Creatinine Ratio 17.4; Bilirubin Total 0.2 mg/dL (0.2-1.0); Calcium 8.6 mg/dL (8.5-10.1); Carbon Dioxide 20.8 mmol/L (21.0-32.0); Chloride 106 mmol/L (98-107); Estimated GFR (African America 42 (>=60 mL/min/1.73m^2); Estimated GFR (Non-African Ame 35 (>=60 mL/min/1.73m^2); Globulin 3.7 g/dL; Glucose 219 mg/dL (74-106); Potassium 3.7 mmol/L (3.5-5.1); Sodium 139 mmol/L (136-145); Total Protein 6.1 g/dL (6.4-8.2)
[2024-06-08] MEDS: GUAIFENESIN 600 MG TAB.ER.12H 1200 MG PO (09:47)
[2024-06-08] MEDS: OMEPRAZOLE 40 MG CAPSULE.DR PO (09:48)
[2024-06-08] MEDS: ASPIRIN 81 MG TABLET.DR PO (09:48)
[2024-06-08] MEDS: CHOLECALCIFEROL (VITAMIN D3) 25 MCG/1,000 UNITS TABLET 50 MCG PO (09:48)
[2024-06-08] MEDS: METOPROLOL TARTRATE 25 MG TABLET 12.5 MG PO (09:48)
[2024-06-08] MEDS: DULOXETINE HCL 30 MG CAPSULE.DR 90 MG PO (09:48)
--- NOTE | 2024-06-08 10:21 | PM.DS1 ---
DS: Providers Provider Date of admission: 06/06/24 12:00 Primary care physician: Erasto Henry MD Admitting clinician: Shaikh Rick Attending physician on admission: Shaikh Rick Consults: 06/06/24 11:18 Occupational Therapy Eval and Treat Routine Reason for consultation: Ambulatory dysfunction/weakness Physical Therapy Eval and Treat Routine Reason for consultation: Ambulatory dysfunction/weakness Attending physician on discharge: Shaikh Rick Discharging clinician: Shaikh Rick Anticipated date of discharge: 06/08/24 DS: Diagnosis Discharge Diagnosis (1) Sepsis: Qualifiers: Sepsis type: sepsis due to unspecified organism Sepsis acute organ dysfunction status: without acute organ dysfunction Qualified Code(s): A41.9 - Sepsis, unspecified organism (2) Acute exacerbation of chronic obstructive pulmonary disease (COPD): (3) Leukocytosis: Qualifiers: Leukocytosis type: unspecified Qualified Code(s): D72.829 - Elevated white blood cell count, unspecified (4) Right lower lobe pneumonia: Qualifiers: Pneumonia type: due to unspecified organism Qualified Code(s): J18.9 - Pneumonia, unspecified organism (5) Acute on chronic respiratory failure with hypoxia: (6) Chronic respiratory failure with hypoxia: (7) CAD (coronary artery disease): Qualifiers: Coronary Disease-Associated Artery/Lesion type: [place] artery [place] vs. transplanted heart: [place] heart Associated angina: without angina Qualified Code(s): I25.10 - Atherosclerotic heart disease of [place] coronary artery without angina pectoris (8) CKD stage 3b, GFR 30-44 ml/min: (9) Chronic steroid use: (10) Immunosuppressed status: (11) Temporal arteritis: (12) Polymyalgia rheumatica: (13) Essential hypertension: (14) Hyperlipidemia: Qualifiers: Hyperlipidemia type: mixed hyperlipidemia Qualified Code(s): E78.2 - Mixed hyperlipidemia (15) Type 2 diabetes mellitus with hyperglycemia: Qualifiers: Diabetes mellitus prison insulin use: without terminal make up operator use Qualified Code(s): E11.65 - Type 2 diabetes mellitus with hyperglycemia DS: Summary Hospital Course Hospital Course: 69-year-old female was in her usual state of health when she woke up with SOB, cough with sputum and fever. Patient has COPD and uses O2 at night. Her symptoms rapidly progressed to the point where she could not catch her breath. Patient was admitted for Sepsis, Pneumonia, COPD exacerbation and acute on chronic resp failure with hypoxia. She was treated with IVF, broad spectrum IV abx - Vanccomycin/zosyn and systemic steroids along with duonesb. Patient required broad spectrum abx because of recent outpatient abx use, hospital admission during which she received IV abx within 3 months and chronic daily prednisone use. Patient clinically improved gradually during the course of admission. She was weaned off of supplemental O2 and felt considerably better today compared to the day of her arrival. Patient is medically stable for discharge on Oral Levaquin, prednisone x 5 days and was instructed to monitor her respiratory status/symptoms closely and return to ED if she developed worsening SOB, cough, or hypoxia. Patient was also instructed to f.u with PCP in one week Status at Discharge Functional status at discharge: independent ambulation Overall status at discharge: patient is back to baseline Time Spent with Patient Time attestation: Total time spent providing and/or coordinating discharge services: Time spent: greater than 30 minutes Exam Constitutional Vital Signs, click to edit/add: Last Vital Signs Temp 98.1 F 06/08/24 09:46 Pulse 97 H 06/08/24 09:46 Resp 18 06/08/24 09:46 BP 139/73 06/08/24 09:46 Pulse Ox 94 L 06/08/24 09:46 O2 Del Method Nasal Cannula 06/08/24 09:46 O2 Flow Rate 1 06/08/24 09:46 Documenting provider has reviewed patient's vital signs: yes Common normals: oriented x3 General appearance: cooperative Respiratory Common normals: normal respiratory effort Effort & inspection: able to speak in complete sentences Other: Coarse breath sounds. No active wheezing. Improved air movement. Cardio Common normals: regular rate, S1 normal heart sound and S2 normal heart sound Rate: regular rate Heart sounds: S1 normal and S2 normal Back & Pelvis Other: Tenderness along right posterior chest wall on palpation Extremity Common normals: no clubbing, cyanosis or edema Neuro Common normals: oriented x3, moves all extremities and no focal motor deficits Psych Common normals: mental status grossly normal, denies hallucinations, denies homicidal ideation and denies suicidal ideation DS: Data Data Completed and Pending Labs on day of discharge: Labs from last 24 hours 06/08/24 06/07/24 05:42 11:00 WBC 25.4 H RBC 3.17 L Hgb 9.7 L Hct 31.0 L MCV 97.8 MCH 30.6 MCHC 31.3 RDW 13.2 Plt Count 331 MPV 9.9 Neut % (Auto) 95.6 H Lymph % (Auto) 0.8 L [place] % (Auto) 2.6 Eos % (Auto) 0.0 L Baso % (Auto) 0.1 L Neut # (Auto) 24.3 H Lymph # (Auto) 0.2 L [place] # (Auto) 0.7 Eos # (Auto) 0.0 Baso # (Auto) 0.0 Abs Immat Gran (auto) 0.22 H Imm/Tot Granulo (auto) 0.9 H Sodium 139 Potassium 3.7 Chloride 106 Carbon Dioxide 20.8 L Anion Gap 15.9 BUN 26.0 H Creatinine 1.49 H Est GFR ( Amer) 42 L Est GFR (Non-Af Amer) 35 L BUN/Creatinine Ratio 17.4 Glucose 219 H Calcium 8.6 Total Bilirubin 0.2 AST 12 L ALT 17 Alkaline Phosphatase 63 Total Protein 6.1 L Albumin 2.4 L Globulin 3.7 Albumin/Globulin Ratio 0.6 Urine Color Lt. yellow Urine Clarity Clear Urine pH 6.0 Ur Specific [place] 1.020 Urine Protein Trace Urine Glucose (UA) 250 A Urine Ketones Negative Urine Occult Blood Moderate A Urine Nitrite Negative Urine Bilirubin Negative Urine Urobilinogen 0.2 Ur Leukocyte Esterase Trace A Urine RBC 0-2 Urine WBC 2-5 A Ur Squamous Epith Cells Few A Ur Transition Epith Cell Rare A Urine Crystals None seen Urine Bacteria Trace A Urine Casts None seen Urine Mucus None seen Ur Culture Indicated? Yes Discharge Plan Discharge Disposition: Home, Self-Care Condition: Fair Discharge Medications: New levofloxacin 750 mg tablet 750 mg PO DAILY Qty: 5 0RF prednisone 20 mg tablet 40 mg PO DAILY Qty: 10 0RF Rx Instructions: 40 daily for 5 days, afterwards she can resume her low dose prednisone Continued atorvastatin 40 mg tablet 40 mg PO .QHS metoprolol tartrate 25 mg tablet 12.5 mg PO BID omeprazole 40 mg capsule,delayed release(DR/EC) 40 mg PO .BIDAC duloxetine 30 mg capsule,delayed release(DR/EC) 90 mg PO DAILY aspirin 81 mg tablet,delayed release (DR/EC) 81 mg PO DAILY eszopiclone [Lunesta] 3 mg tablet 3 mg PO .QHS PRN (Reason: sleep) melatonin 5 mg tablet 5 mg PO .QHS pregabalin [Lyrica] 100 mg capsule 100 mg PO TID potassium chloride 20 mEq tablet extended release 20 meq PO DAILY PRN (Reason: hypokalemia) ferrous sulfate 325 mg (65 mg iron) tablet 325 mg PO DAILY cranberry 500 mg capsule 500 mg PO DAILY Rx Instructions: administer with a meal cholecalciferol (vitamin D3) 50 mcg (2,000 unit) capsule 50 mcg PO DAILY estradiol 0.01 % (0.1 mg/gram) cream 1 appful VAGINAL .QWK albuterol sulfate 90 mcg/actuation HFA aerosol inhaler 2 puff INHALATION Q4H PRN (Reason: shortness of breath or wheezing) guaifenesin 600 mg tablet extended release 12hr 1,200 mg PO BID amlodipine 5 mg tablet 5 mg PO QAM prednisone 5 mg tablet 10 mg PO DAILY Activity: increase activity as tolerated Diet: advance to your usual diet Print Language: Martiniquais Forms: Portal Instructions Follow Up Appointments: f/u with PCP in one week
--- NOTE | 2024-06-10 15:13 | CM.DCFOLLOWU ---
06/10- No answer 1st attempt.
--- NOTE | 2024-06-13 11:46 | CM.DCFOLLOWU ---
06/13- 3rd attempt. No answer
== END 2024-06-08 11:42 | disposition home or self-care (01) | DRG 871 ==
LOC: ER 11:13 → MS 12:06
PROVIDERS: Admitting Provider Internal Medicine; Emergency Provider Emergency Medicine; PCP Family Medicine; Visit Provider Internal Medicine
DX: A41.9 Sepsis, unspecified organism (principal); J18.9 Pneumonia, unspecified organism; J96.21 Acute and chronic respiratory failure with hypoxia; J44.1 Chronic obstructive pulmonary disease with (acute) exacerbation; J44.0 Chronic obstructive pulmonary disease with (acute) lower respiratory infection; D84.821 Immunodeficiency due to drugs; I25.10 Atherosclerotic heart disease of native coronary artery without angina pectoris; Z79.52 Long term (current) use of systemic steroids; M35.3 Polymyalgia rheumatica; T38.0X5A Adverse effect of glucocorticoids and synthetic analogues, initial encounter; M31.6 Other giant cell arteritis; N18.32 Chronic kidney disease, stage 3b; I12.9 Hypertensive chronic kidney disease with stage 1 through stage 4 chronic kidney disease, or unspecified chronic kidney disease; E78.5 Hyperlipidemia, unspecified; Y95 Nosocomial condition; E11.65 Type 2 diabetes mellitus with hyperglycemia; E11.22 Type 2 diabetes mellitus with diabetic chronic kidney disease; Z99.81 Dependence on supplemental oxygen; Z79.82 Long term (current) use of aspirin; Z79.899 Other long term (current) drug therapy; Z87.891 Personal history of nicotine dependence; Z90.2 Acquired absence of lung [part of]; Z95.5 Presence of coronary angioplasty implant and graft; Z87.440 Personal history of urinary (tract) infections
CPT/HCPCS: 36415; 71045; 80048; 80053; 81001; 83605; 84484; 85007; 85025; 85027; 87040; 87070; 87086; 87804; 87811; 93005; 94640; 94667; 94668; 94761; 96365; 96375; 97161; 97165; 97530; 99285; J0713; J1644; J2405; J2919; J3370

== ENCOUNTER 2024-06-26 11:59 | Observation (INO) | payer OTHER, MEDICARE, SELFPAY ==
[2024-06-26] VITALS (24 sets, daily range): BP systolic 131–171; BP diastolic 74–124; PULSE 68–115; TEMP 36.6–36.7; O2SAT 91–100; BMI 18.7; BMI 18.6
--- NOTE | 2024-06-26 12:24 | ECG_ITS ---
The [facility] Test Date: 2024-06-26 Pat Name: SANDRA CANALES Department: Room: - Gender: Female [employer]: : 1955 Requested By: ESME BURROUGHS Order Number: [id number] Reading MD: NATALIA YANEZ Measurements Intervals [place] Rate: 108 P: 84 MO: 136 QRS: 84 QRSD: 76 T: 81 QT: 320 QTc: 383 Interpretive Statements 1120 Sinus tachycardia 9140 abnormal rhythm ECG Compared to ECG 06/06/2024 09:47:49 Possible ischemia no longer present Indeterminate axis no longer present Electronically Signed On 06-26-2024 19:44:42 EST by NATALIA YANEZ
[2024-06-26 12:33] LABS: Basophils Absolute Auto 0.1 10^3/uL (0.0-0.1); Basophils Percent Auto 0.4 % (0.2-2.0); Eosinophils Absolute Auto 0.2 10^3/uL (0.0-0.7); Eosinophils Percent Auto 1.7 % (0.9-7.0); Hematocrit 47.9 % (36.0-48.0); Hemoglobin 15.3 g/dL (12.0-16.0); Immature Granulocytes Abs Auto 0.05 10^3/uL (0.00-0.03); Immature Granulocytes Pct Auto 0.4 % (0.0-0.5); Lymphocytes Absolute Auto 1.4 10^3/uL (1.2-3.8); Lymphocytes Percent Auto 9.9 % (20.5-60.0); Mean Corpuscular HGB Conc 31.9 g/dL (29.9-35.2); Mean Corpuscular Hemoglobin 30.3 pg (26.7-34.0); Mean Corpuscular Volume 94.9 fL (81.0-99.0); Mean Platelet Volume 9.2 fL (9.5-13.5); Monocytes Absolute Auto 1.2 10^3/uL (0.3-0.8); Monocytes Percent Auto 8.4 % (1.7-12.0); Neutrophils Absolute Auto 11.1 10^3/uL (1.4-6.5); Neutrophils Percent Auto 79.2 % (43.0-75.0); Platelet Count 383 10^3/uL (150-450); Red Blood Count 5.05 10^6/uL (4.20-5.40); Red Cell Distribution Width 12.8 % (11.0-15.0)
[2024-06-26 12:47] LABS: D Dimer 0.23 mg/L FEU (<=0.59)
[2024-06-26 12:49] LABS: Lactate/Lactic Acid 1.8 mmol/L (0.4-2.0)
[2024-06-26 12:56] LABS: Alanine Aminotransferase 31 U/L (14-59); Albumin Globulin Ratio 0.9; Albumin Level 3.6 g/dL (3.4-5.0); Alkaline Phosphatase 94 U/L (46-116); Aspartate Amino Transferase 19 U/L (15-37); BUN Creatinine Ratio 12.9; Bilirubin Total 0.5 mg/dL (0.2-1.0); Calcium 10.4 mg/dL (8.5-10.1); Carbon Dioxide 25.8 mmol/L (21.0-32.0); Chloride 102 mmol/L (98-107); Estimated GFR (African America 40 (>=60 mL/min/1.73m^2); Estimated GFR (Non-African Ame 33 (>=60 mL/min/1.73m^2); Glucose 155 mg/dL (74-106); Potassium 3.8 mmol/L (3.5-5.1); Sodium 140 mmol/L (136-145); Total Protein 7.6 g/dL (6.4-8.2)
--- NOTE | 2024-06-26 13:39 | XR_ITS ---
The [address] [address] Patient Name: SANDRA Easton COVERT MRN: [id number] date: 1955 Sex: F Assigned Patient Location: ER Current Patient Location: ER Accession/Order Number: [id number] Exam Date: 06/26/2024 13:45 Report Date: 06/26/2024 14:00 At the request of: MELLO MORENO Procedure: XR chest 1V EXAM: XR chest 1V HISTORY: sob COMPARISON: 02/04/2024 TECHNIQUE: AP portable FINDINGS: LUNGS: Minimal right basilar infiltrate, markedly improved. Biapical suture lines, stable VASCULATURE: No increased pulmonary vasculature. PLEURA: No pneumothorax, effusion, or pleural thickening. CARDIAC: No cardiomegaly or cardiac silhouette abnormality. MEDIASTINUM: No visible mass or adenopathy. BONES: No fracture or visible bone lesion. OTHER: Negative. XR/XR chest 1V IMPRESSION: Minimal right basilar infiltrate, improved. Electronically authenticated by: ASAEL MALDONADO Date: 06/26/2024 14:00
--- NOTE | 2024-06-26 13:45 | ED_ITS ---
HPI - SOB/Dyspnea General Chief Complaint: Shortness of Breath/Dyspnea Stated Complaint: SOB Time Seen by Provider: 06/26/24 12:24 Source: patient Mode of arrival: Wheelchair History of Present Illness HPI Narrative: The patient is coming to the ER after she was evaluated by her primary care office with outpatient, the concern with shortness of breath and distress and that why she was sent to us, the patient was evaluated by as outpatient when she was found to be having difficulty breathing and tachycardic Upon arrival the patient mentioned that she has been feeling this way for the last few days although she did feel better after she was admitted last month when she was diagnosed with pneumonia The patient sister at the bedside mentioned that she is not compliant using her inhaler There is difficulty breathing and decreased p.o. intake in addition to a cough productive of whitish sputum Related Data Home Medications ?Medication ?Instructions ?Recorded ?Confirmed aspirin 81 mg tablet,delayed 81 mg PO DAILY 03/06/23 06/26/24 release atorvastatin 40 mg tablet 40 mg PO .QHS 03/06/23 06/26/24 duloxetine 30 mg capsule,delayed 90 mg PO DAILY 03/06/23 06/26/24 release eszopiclone 3 mg tablet (Lunesta) 3 mg PO .QHS PRN sleep 03/06/23 06/26/24 melatonin 5 mg tablet 5 mg PO .QHS 03/06/23 06/26/24 metoprolol tartrate 25 mg tablet 12.5 mg PO BID 03/06/23 06/26/24 omeprazole 40 mg capsule,delayed 40 mg PO .BIDAC 03/06/23 06/26/24 release pregabalin 100 mg capsule (Lyrica) 100 mg PO TID 03/06/23 06/26/24 albuterol sulfate 90 mcg/actuation 2 puff inhalation Q4H PRN 12/18/23 06/26/24 aerosol inhaler shortness of breath or wheezing guaifenesin 600 mg tablet, 1,200 mg PO BID 12/18/23 06/26/24 extended release 12 hr cholecalciferol (vitamin D3) 50 50 mcg PO DAILY 02/14/24 06/26/24 mcg (2,000 unit) capsule cranberry 500 mg capsule 500 mg PO DAILY 02/14/24 06/26/24 ferrous sulfate 325 mg (65 mg 325 mg PO DAILY 02/14/24 06/26/24 iron) tablet potassium chloride 20 mEq 20 meq PO DAILY PRN hypokalemia 02/14/24 06/26/24 tablet,extended release estradiol 0.01% (0.1 mg/gram) 1 appful vaginal .QWK AT BEDTIME 06/06/24 06/26/24 vaginal cream glipizide 5 mg tablet 5 mg PO DAILY 06/26/24 06/26/24 Allergies Allergy/AdvReac Type Severity Reaction Status Date / Time azithromycin (From Zithromax Allergy Severe Unknown Verified 02/18/24 18:30 Z-Leonardo) Latex, Natural Rubber Allergy Severe Unknown Verified 02/18/24 18:30 Review of Systems ROS Status of ROS 10 or more systems reviewed and unremark able except as noted in history and below [facility] Medical History (Updated 06/26/24 @ 14:26 by Sonya Zuniga MD) Right lower lobe pneumonia ?J18.9 - Pneumonia, unspecified organism (ICD-10) Acute pyelonephritis ?N10 - Acute pyelonephritis (ICD-10) Sepsis ?A41.9 - Sepsis, unspecified organism (ICD-10) Immunosuppressed status ?D84.9 - Immunodeficiency, unspecified (ICD-10) Chronic steroid use Temporal arteritis ?M31.6 - Other giant cell arteritis (ICD-10) CKD stage 3b, GFR 30-44 ml/min ?N18.32 - Chronic kidney disease, stage 3b (ICD-10) Chronic respiratory failure with hypoxia ?J96.11 - Chronic respiratory failure with hypoxia (ICD-10) History of tobacco abuse ?Z87.891 - Personal history of nicotine dependence (ICD-10) CAD (coronary artery disease) ?I25.10 - Atherosclerotic heart disease of [place] coronary artery without angina pectoris (ICD-10) Essential hypertension ?I10 - Essential (primary) hypertension (ICD-10) Type 2 diabetes mellitus with hyperglycemia ?E11.65 - Type 2 diabetes mellitus with hyperglycemia (ICD-10) Polymyalgia rheumatica ?M35.3 - Polymyalgia rheumatica (ICD-10) Non-ST elevated myocardial infarction (non-STEMI) ?I21.4 - Non-ST elevation (NSTEMI) myocardial infarction (ICD-10) Hyperlipidemia ?E78.5 - Hyperlipidemia, unspecified (ICD-10) Hyperglycemia, drug-induced ?R73.9 - Hyperglycemia, unspecified (ICD-10) ?T50.905A - Adverse effect of unspecified drugs, medicaments and biological substances, initial encounter (ICD-10) COPD (chronic obstructive pulmonary disease) ?J44.9 - Chronic obstructive pulmonary disease, unspecified (ICD-10) Depression ?F32.A - Depression, unspecified (ICD-10) Acid reflux ?K21.9 - Gastro-esophageal reflux disease without esophagitis (ICD-10) Nerve pain ?M79.2 - Neuralgia and neuritis, unspecified (ICD-10) Back pain ?M54.9 - Dorsalgia, unspecified (ICD-10) Thoracotomy scar of right chest ?L90.5 - Scar conditions and fibrosis of skin (ICD-10) History of oxygen administration ?Z99.81 - Dependence on supplemental oxygen (ICD-10) UTI (urinary tract infection), bacterial ?N39.0 - Urinary tract infection, site not specified (ICD-10) ?A49.9 - Bacterial infection, unspecified (ICD-10) Urethral stenosis Surgical History (Updated 06/06/24 @ 12:14 by Janet Lopez RN) Status post bilateral cataract extraction ?Z98.41 - Cataract extraction status, right eye (ICD-10) ?Z98.42 - Cataract extraction status, left eye (ICD-10) 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 [part of] (ICD-10) Stented coronary artery ?Z95.5 - Presence of coronary angioplasty implant and graft (ICD-10) Family History Mother Family history of COPD (chronic obstructive pulmonary disease) Brother Family history of COPD (chronic obstructive pulmonary disease) Father Family history of COPD (chronic obstructive pulmonary disease) Family history of stroke Social History Within the past year, how often did you have a drink containing alcohol: never Within the past year, how many standard drinks containing alcohol did you have on a typical day: 1 or 2 Within the past year, how often did you have six or more drinks on one occasion: never Total score: 0 Score interpretation: A score less than 3 is consistent with normal alcohol consumption. Smoking status: Former smoker Non-prescribed substance use: denies use Previous occupational history: disabled Highest level of school completed/degree received: Associate degree: occupational, technical, vocational program Are you now , , , , never or living with a partner: Little interest or pleasure in doing things: several days Feeling down, depressed, or hopeless: several days Feel stressed/tense/nervous/anxious/difficulty sleeping: only a little Do you think of yourself as: straight/heterosexual Gender Identity: female Exam Narrative Exam Narrative: Nurses notes and vital signs reviewed and patient is not hypoxic. General: Well-appearing and in no apparent distress. Skin: Warm, dry, no pallor noted. No rash. Head: Normocephalic, atraumatic. Neck: Supple, non-tender. Eye: Pupils are equal, round and EOMI. No scleral icterus. Ears, Nose, Mouth, and Throat: TM are clear, no nasal mucosal hypertrophy. Oral mucosa is moist, no posterior oropharynx erythema, uvula is mid-line Cardiovascular: Regular Rate and Rhythm without murmur, gallop or rub. Respiratory: There is decreased air entry bilaterally with a distant breathing sound and restricted airway with tachypnea Back: No midline thoracic or lumbar vertebral tenderness. No CVA tenderness Musculoskeletal: normal ROM, no calf or popliteal tenderness, no lower ext remity edema/swelling GI: Abdomen is soft, non-distended. Normal bowel sounds. No masses appreciated. No tenderness to palpation. No rebound, guarding, or rigidity noted. Neurological: A&O x4. No cranial nerve dysfunction observed. No truncal ataxia. Moves all extremities. Sensation intact. Psychiatric: Cooperative and interactive. Normal mood and affect. Constitutional Vital Signs, click to edit/add: Last Vital Signs Temp 97.8 F 06/26/24 12:07 Pulse 98 H 06/26/24 14:00 Resp 29 H 06/26/24 14:00 BP 139/93 H 06/26/24 14:00 Pulse Ox 100 06/26/24 14:00 O2 Del Method Room Air 06/26/24 13:59 Course Vital Signs Vital signs: Vital Signs Temperature 97.8 F 06/26/24 12:07 Pulse Rate 107 H 06/26/24 12:07 Respiratory Rate 26 H 06/26/24 12:07 Blood Pressure 131/92 H 06/26/24 12:07 Pulse Oximetry 97 06/26/24 12:07 Oxygen Delivery Method Room Air 06/26/24 12:07 Temperature 97.8 F 06/26/24 12:07 Pulse Rate 98 H 06/26/24 14:00 Respiratory Rate 29 H 06/26/24 14:00 Blood Pressure 139/93 H 06/26/24 14:00 Pulse Oximetry 100 06/26/24 14:00 Oxygen Delivery Method Room Air 06/26/24 13:59 MDM - SOB/Dyspnea MDM Narrative Medical decision making narrative: The patient presentation concerning for COPD exacerbation specially with her history of not being compliant Patient EKG showing sinus tachycardia with a heart rate of [address] elevation or depression CBC and chemistry showed some leukocytosis that is improving from the last time she was here The chemistry was within normal with a negative troponin The patient chest x-ray shows improvement of the infiltrate But the patient presentation is concerning for COPD exacerbation that is new compared to the fact that she was getting better initially Blood culture was obtained and the patient was started on doxycycline she will be admitted for COPD management Provided with a breathing treatment and Solu-Medrol in the ER she was not feeling any better The patient case was discussed with and the she agreed on admitting the patient for further management Lab Data Labs: Lab Results 06/26/24 06/26/24 Range/Units 12:24 12:25 WBC 14.0 H (4.0-11.0) 10^3/uL RBC 5.05 (4.20-5.40) 10^6/uL Hgb 15.3 (12.0-16.0) g/dL Hct 47.9 (36.0-48.0) % MCV 94.9 (81.0-99.0) fL MCH 30.3 (26.7-34.0) pg MCHC 31.9 (29.9-35.2) g/dL RDW 12.8 (11.0-15.0) % Plt Count 383 (150-450) 10^3/uL MPV 9.2 L (9.5-13.5) fL Neut % (Auto) 79.2 H (43.0-75.0) % Lymph % (Auto) 9.9 L (20.5-60.0) % [place] % (Auto) 8.4 (1.7-12.0) % Eos % (Auto) 1.7 (0.9-7.0) % Baso % (Auto) 0.4 (0.2-2.0) % Neut # (Auto) 11.1 H (1.4-6.5) 10^3/uL Lymph # (Auto) 1.4 (1.2-3.8) 10^3/uL [place] # (Auto) 1.2 H (0.3-0.8) 10^3/uL Eos # (Auto) 0.2 (0.0-0.7) 10^3/uL Baso # (Auto) 0.1 (0.0-0.1) 10^3/uL Abs Immat Gran (auto) 0.05 H (0.00-0.03) 10^3/uL Imm/Tot Granulo (auto) 0.4 (0.0-0.5) % D-Dimer 0.23 (<=0.59) mg/L FEU Sodium 140 (136-145) mmol/L Potassium 3.8 (3.5-5.1) mmol/L Chloride 102 (98-107) mmol/L Carbon Dioxide 25.8 (21.0-32.0) mmol/L Anion Gap 16.0 BUN 20.0 H (7.0-18.0) mg/dL Creatinine 1.55 H (0.55-1.02) mg/dL Est GFR ( Amer) 40 L (>=60 mL/min/1.73m^2) Est GFR (Non-Af Amer) 33 L (>=60 mL/min/1.73m^2) BUN/Creatinine Ratio 12.9 Glucose 155 H (74-106) mg/dL Lactate 1.8 (0.4-2.0) mmol/L Calcium 10.4 H (8.5-10.1) mg/dL Total Bilirubin 0.5 (0.2-1.0) mg/dL AST 19 (15-37) U/L ALT 31 (14-59) U/L Alkaline Phosphatase 94 (46-116) U/L Troponin I High Sens 11.0 (4.0-51.3) pg/mL Total Protein 7.6 (6.4-8.2) g/dL Albumin 3.6 (3.4-5.0) g/dL Globulin 4.0 g/dL Albumin/Globulin Ratio 0.9 Discharge Plan Discharge Chief Complaint: Shortness of Breath/Dyspnea Clinical Impression: COPD exacerbation Patient Disposition: Admitted as Observation Time of Disposition Decision: 14:26
[2024-06-26] MEDS: IPRATROPIUM/ALBUTEROL SULFATE 3 ML AMPUL.NEB IH ×2 (13:57→22:59)
[2024-06-26] MEDS: METHYLPREDNISOLONE SOD SUCC PF 125 MG/2 ML VIAL IVP (14:00)
--- OUTSIDE RECORDS SUMMARY | 2024-06-26 14:49 | XMS_ITS | CCD ---
Author Organization [facility] Care Team Providers Care Supervisor Diagnostic Name Role Phone IMAN WILLIS Admitting Unavailable [...] SAMSA ., ISHAN Consulting Unavailable NADYUNI, DR ERASOT Carrera Admitting Unavailable NADERER, DR ERASTO Carrera Primary Care Unavailable NADERER, DR ERATSO Carrera Attending Unavailable ZIEBER, DR MIGUE Wild [...] DR ASAEL Fox Consulting Unavailable DORIS .NARCISA Procedure Practitioner Unava ilable ANGELES, DR MIGUE Wild Consulting Unavailable NADERER, DR ERASTO A Consulting Unavailable SAMSA ., ISHAN Procedure Practitioner [...] vailable MANJIT, ORESTES Procedure Practitioner Unavailab le ANGELES, DR MIGUE Wild Consulting Unavailable NADERER, DR ERASTO Carrera Consulting Unavailable SAMSA ., ISAHN Procedure Practitioner Unavailab le GINGERCHKEVIN ., PA ROSI Consulting Unavailabl e MANJIT, [...] Unavailable MD Erasto Burroughs Primary Care Provider [phone] MD Remy Givens Attending Provider Remy Givens Attending Unavailable Remy Givens Admitting Unavailable Naderetorri, Erasto Primary Care Unavailable Erasto Burroughs MD Primary Care Provider [phone] ROSA MARIA, NOORALDIN Referring Unavailable JER NEFF Attending Unavailable JER NEFF Attending Unavailable AVINASH SERRANO Referring Unavailable JAZMIN EASLEY Admitting Unavailable KONG BEAULIEU Attending Unavailable KONG BEAULIEU Referring Unavailable MERZA, NOORALDIN Referring Unavailable YENNIZA, NOORALDIN Referring Unavailable SHAIKH FINN Attending Unavailable ERASTO BURROUGHS Attending Unavailable Erasto Burroughs MD Primary Care Provider Ihsan BROWN Attending Unavailable Ihsan BROWN Attending Unavailable Ihsan BROWN Attending Unavailable Iman Jeter Attending Unavaila ble Allergies Allergy Classification Reported Allergen(s) Allergy Type Date of Onset Reaction(s) Facility (4 sources) Azithromycin; Translations: [AZITHROMYCIN] Drug Allergy 9 [facility] Repository (5 sources) Latex; Translations: [LATEX] Drug allergy (disorder) 7 [facility] Repository (1 source) Azithromycin Drug Allergy 2 [facility] Repository (1 source) Latex Drug allergy (disorder) 2 [facility] Repository (4 sources) Azithromycin Drug Allergy 3 [facility] (4 sources) Latex Allergy to substance 3 [facility] (1 source) Azithromycin; Translations: [Zithromax] Drug Allergy [facility] Repository Medications Current Medications Medication Drug [...] 2022 11:00pm arginine 500 mg oral tablet (4 sources) Start: 05-17-2023 take 1 tablet by mouth every twelve hours arginine 500 MG tablet Take 1 tablet by mouth every 12 (twelve) hours 05/17/2023 Active aspirin 81 mg delayed release oral tablet (4 sources) Platelet Aggregation Inhibitor, Nonsteroidal Anti-inflammatory Drug [...] 2022 11:00pm cholecalciferol 0.05 mg oral capsule (5 sources) Vitamin D Start: 06-26-2023 End: 06-26-2024 [...] 2022 11:00pm clopidogrel 75 mg oral tablet (5 sources) [id number] Platelet Inhibitor Start: 04-06-2022 End: 06-26-2023 take 1 tablet by mouth in the morning clopidogrel (Plavix) 75 MG tablet Take 1 tablet by mouth in the morning. 07/17/2022 Active DULoxetine 30 mg delayed release oral capsule (5 sources) Serotonin and Norepinephrine Reuptake Inhibitor Start: 04-26-2023 take 3 capsules by mouth in the morning DULoxetine (Cymbalta) [address] capsule Take 3 capsules by mouth in the morning. 04/26/2023 Active Start: 04-06-2022 take 90 mg by mouth once daily Duloxetine Active 90 MG PO Daily April 05, 2022 11:00pm eszopiclone 3 mg oral tablet (5 sources) Start: 04-06-2022 take 1 tablet by mouth at bedtime eszopiclone (Lunesta) 3 MG tablet Take 1 tablet by mouth at bedtime 05/09/2023 Active furosemide 40 mg oral tablet (4 sources) Loop Diuretic Start: 05-30-2023 take 1 tablet by mouth every twenty-four hours as needed furosemide (Lasix) 40 MG tablet Take 1 tablet by mouth Daily as needed 05/30/2023 Active glipiZIDE 5 mg oral tablet (3 sources) Sulfonylurea Start: 03-12-2024 take 1 tablet by mouth once daily glipiZIDE (Glucotrol) 5 MG tablet Indications: Type 2 diabetes mellitus with hyperglycemia, without long-term current use of insulin ([facility]) TAKE 1 TABLET(5 MG) BY MOUTH DAILY 90 tablet 3 03/12/2024 Active ipratropium bromide 0.2 mg/ml inhalation solution (4 sources) Anticholinergic ipratropium (Atrovent) 0.02 % nebulizer solution Take 0.5 mg by nebulization every 6 (six) hours Active 200 actuat levalbuterol 0.045 mg/actuat metered dose inhaler (4 sources) beta2-Adrenergic Agonist take 2 puff(s) by inhalation every four hours for wheezing levalbuterol (Xopenex HFA) 45 MCG/ACT inhaler Inhale 2 puffs every 4 (four) hours if needed for wheezing Active melatonin 5 mg oral tablet (1 source) Start: 04-06-2022 take 5 mg by mouth at bedtime Melatonin Active 5 MG PO Bedtime April 05, 2022 11:00pm metoprolol tartrate 25 mg oral tablet (5 sources) beta-Adrenergic Joslyn Start: 06-08-2023 take 0.5 tablet by mouth in the morning metoprolol tartrate (Lopressor) 25 MG tablet Take 0.5 tablets by mouth in the morning and 0.5 tablets before bedtime. 06/08/2023 Active Start: 04-06-2022 take 12.5 mg by mout h every twelve hours Metoprolol Tartrate Active 12.5 MG PO Q12H April 05, 2022 11:00pm omeprazole 40 mg delayed release oral capsule (4 sources) Proton Pump Inhibitor Start: 08-29-2023 End: [...] Active ondansetron 4 mg disintegrating oral tablet (4 sources) Serotonin-3 Receptor Antagonist Start: 03-21-2023 take [...] chloride 20 meq extended release oral tablet (4 sources) Start: 03-31-2024 take 1 tablet by [...] 2022 11:00pm pregabalin 100 mg oral capsule (6 sources) Start: 10-16-2023 End: 04-30-2024 take 1 capsule by mouth three times daily pregabalin (Lyrica) 100 MG capsule Indications: DDD (degenerative disc disease), lumbar TAKE 1 CAPSULE BY MOUTH THREE TIMES DAILY 270 capsule 04/30/2024 Active Start: 08-20-2023 take 1 capsule by mo [facility] three times daily pregabalin (Lyrica) 100 MG [...] Chronic Chronic obstructive pulmonary disease and bronchiectasis (9 sources) Chronic obstructive pulmonary disease, unspecified; Translations: [Emphysema, unspecified] Onset: 12-18-2021 08-27-2023 Chronic Coronary atherosclerosis and other heart disease (7 sources) Atherosclerotic heart disease of [place] coronary artery without angina pectoris; Translations: [Coronary occlusion] Onset: 03-08-2022 Chronic Coronary atherosclerosis and other heart disease (2 sources) Presence of coronary angioplasty implant and graft; Translations: [Presence of coronary angioplasty implant and graft] Onset: 01-07-2024 Episodic Deficiency and other anemia (1 source) Iron deficiency anemia, unspecified; Translations: [IRON DEFICIENCY ANEMIA, UNSPECIFIED] Onset: 03-08-2022 Episodic Diabetes mellitus with complications (4 sources) Type 2 diabetes mellitus with hyperglycemia; Translations: [Hyperglycemia due to type 2 diabetes mellitus] Onset: 03-16-2022 08-27-2023 Chronic Diabetes mellitus without complication (1 source) Type 2 diabetes mellitus without complications; Translations: [TYPE 2 DM WITHOUT COMPLICATIONS] Onset: 05-01-2022 Chronic Diabetes mellitus without complication (1 source) Hyperglycemia, unspecified; Translations: [HYPERGLYCEMIA, UNSPECIFIED] Onset: 03-08-2022 Episodic Disorders of lipid metabolism (4 sources) Pure hypercholesterolemia, unspecified; Translations: [Dyslipidemia] Onset: 05-01-2022 08-27-2023 Chronic Esophageal disorders (6 sources) Esophageal dysmotility; Translations: [Dyskinesia of esophagus] Onset: 08-27-2023 08-27-2023 Chronic Essential hypertension (7 sources) Essential (primary) hypertension; Translations: [Benign essential hypertension] Onset: 03-08-2022 Chronic Mood disorders (1 source) Major depressive disorder, single episode, unspecified; Translations: [ANDRES DEPRESS D/O SINGLE EPIS UNS] Onset: 05-01-2022 Chronic Mood disorders (1 source) Mood disorders; Translations: [DEPRESSION, UNSPECIFIED] Onset: 03-08-2022 Noninfectious gastroenteritis (3 sources) Collagenous colitis; Translations: [Collagenous colitis] Onset: 08-27-2023 08-27-2023 Chronic Nutritional deficiencies (4 sources) Vitamin D deficiency, unspecified; Translations: [Vitamin D deficiency] Onset: 03-29-2022 08-27-2023 Chronic Osteoarthritis (4 sources) Primary generalized (osteo)arthritis; Translations: [PRIMARY GENERALIZED OSTEOARTHRITIS] Onset: 10-10-2022 Chronic Osteoporosis (8 sources) Age-related osteoporosis without current pathological fracture; Translations: [Senile osteoporosis] Onset: 12-22-2021 Chronic Other aftercare (5 sources) Other long-term (current) drug therapy; Translations: [OTH SKILLED NURSING CURRENT DRUG THERAPY] Onset: 05-01-2022 Episodic Other circulatory disease (1 source) Raynaud's syndrome without gangrene; Translations: [RAYNAUDS SYNDROME WITHOUT GANGRENE] Onset: 12-18-2021 Chronic Other circulatory disease (2 sources) Other hypotension; Translations: [Other hypotension] Onset: 01-07-2024 Episodic Other connective tissue disease (2 sources) Polymyalgia rheumatica; Translations: [POLYMYALGIA RHEUMATICA] Onset: 03-08-2022 Chronic Other connective tissue disease (3 sources) Polymyalgia rheumatica; Translations: [Polymyalgia rheumatica] Onset: 08-27-2023 08-27-2023 Chronic Other gastrointestinal disorders (1 source) Dysphagia, unspecified; Translations: [Dysphagia, unspecified] Onset: 06-26-2023 Episodic Other lower respiratory disease (4 sources) Other nonspecific abnormal finding of lung field; Translations: [OTH NONSPECIFIC ABN FIND LNG FIELD] Onset: 10-31-2022 Episodic Other nervous system disorders (3 sources) Thoracic outlet syndrome; Translations: [Brachial plexus disorders] Onset: 08-27-2023 08-27-2023 Chronic Other non-traumatic joint disorders (1 source) Arthropathy in other blood disorders; Translations: [ARTHROPATHY OTHER BLOOD DISORDERS] Onset: 12-16-2021 Chronic Other screening for suspected conditions (not mental disorders or infectious disease) (2 sources) Other specified abnormal findings of blood chemistry; Translations: [Other specified abnormal findings of blood chemistry] Onset: 01-07-2024 Episodic Personality disorders (3 sources) Chronic depression; Translations: [Chronic depressive disorder] Onset: 08-27-2023 08-27-2023 Chronic Respiratory failure; insufficiency; arrest (adult) (5 sources) Chronic respiratory failure with hypoxia; Translations: [...] THROMBOCYTOSIS UNSPECIFIED; Translations: [THROMBOCYTOSIS UNSPECIFIED] Onset: 04-04-2022 Past or Other Problems Problem Classification Problem Date Documented Da te Episodic/Chronic Deficiency and other anemia (1 source) Other iron deficiency anemias; Translations: [OTHER IRON DEFICIENCY ANEMIAS] Onset: 05-01-2022 Episodic Fluid and electrolyte disorders (5 sources) Dehydration; Translations: [Hyponatremia] Onset: 12-18-2021 06-14-2023 Episodic Genitourinary symptoms and ill-defined conditions (3 sources) Dysuria; Translations: [Dysuria] Onset: 08-27-2023 Resolved: 02-21-2024 02-21-2024 Episodic Nutritional deficiencies (1 source) Cachexia; Translations: [CACHEXIA] Onset: 04-04-2022 Episodic Other aftercare (1 source) 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; Translations: [ARM REST BUILDER CURRENT USE OF ASPIRIN] Onset: 05-01-2022 Episodic Other aftercare (1 source) watermelon inspector (current) use of antithrombotics/ant iplatelets; Translations: [SKILLED NURSING ANTITHROMBOT/ANTIPL ATLETS] Onset: 03-16-2022 Episodic Other aftercare (4 sources) Post-discharge follow-up; Translations: [Encounter for follow-up examination after completed treatment for conditions other than malignant neoplasm] Onset: 06-14-2023 06-14-2023 Episodic Other circulatory disease (4 sources) Hypotension, unspecified; Translations: [HYPOTENSION UNSPECIFIED] Onset: 12-14-2021 Episodic Other connective tissue disease (1 source) Fibromyalgia; Translations: [FIBROMYALGIA] Onset: 04-04-2022 Episodic Other connective tissue disease (3 sources) Fibromyalgia; Translations: [Fibromyalgia] Onset: 08-27-2023 08-27-2023 Episodic Other injuries and conditions due to external causes (1 source) History of falling; Translations: [HISTORY OF FALLING] Onset: 03-16-2022 Episodic Other lower respiratory disease (3 sources) Shortness of breath; Translations: [SHORTNESS OF BREATH] Onset: 04-25-2022 Episodic Other nervous system disorders (3 sources) Paresthesia; Translations: [Paresthesia of skin] Onset: 08-27-2023 08-27-2023 Episodic Other nutritional; endocrine; and metabolic disorders (1 source) Body mass index (BMI) 19.9 or less, adult; Translations: [BODY MASS INDEX 19.9 OR LESS ADULT] Onset: 04-04-2022 Episodic Pleurisy; pneumothorax; pulmonary collapse (18 sources) Spontaneous pneumothorax; Translations: [Spontaneous tension pneumothorax] Onset: 03-06-2022 Resolved: 02-21-2024 Episodic Pneumonia (except that caused by tuberculosis or sexually transmitted disease) (3 sources) Pneumonia, unspecified organism; Translations: [PNEUMONIA UNSPECIFIED ORGANISM] Onset: 05-01-2022 Episodic Residual codes; unclassified (3 sources) Bilateral lower limb edema; Translations: [Localized edema] Onset: 08-27-2023 08-27-2023 Episodic Respiratory failure; insufficiency; arrest (adult) (2 sources) Acute respiratory failure with hypoxia; Translations: [ACUTE RESPIRATORY FAILURE WITH HYPOXIA] Onset: 03-08-2022 Episodic Screening and history of mental health and substance abuse codes (1 source) Personal history of nicotine dependence; Translations: [PERSONAL HISTORY OF NICOTINE DEPEND] Onset: 05-01-2022 Episodic Urinary tract infections (3 sources) Pyelonephritis; Translations: [Tubulo-interstitia l nephritis, not specified as acute or chronic] Onset: 02-21-2024 02-21-2024 Episodic Results Test Name Value Interpretation Reference Range Facility URINE CULTURE, ROUTINEon Bacteria identified Cx Nom (U) Urine Culture, Routine [facility] Bacteria identified [facility] (U) No growth [facility] Bacteria identified Cx Nom (U) [facility] Bacteria identified Cx Nom (U) [address] [place] [id number] [facility] Healthcare Bacteria identified Cx Nom (U) Analysis Tester: Deejay Cortez PhD, Phone: [phone] [facility] Ambulatory Visit Summaryon 1 07-12-2023 Ambulatory Visit Summary Ambulatory Visit Summary COVERT, LISE Easton :1955 Visit Date:05/12/2024 Ambulatory Visit Instructions Your Diagnosis Unspecified urethral stricture, female Chronic cystitis Asymptomatic microscopic hematuria Your Care Team Attending Physician - KEVIN SALDIVAR, Ihsan Wild Primary Care Physician - HEIKE SALDIVAR, ERASTO This Is Your Medications List cephalexin (Keflex [...] Follow-Up Appointments Sunday 1:45 PM EDT With: Ihsan BROWN MD Where: [facility] [address] [place] [address]- You Need to Schedule the Following Appointments Follow Up with KEVIN SALDIVAR, Ihsan Wild, URL When: Where: [facility] [address], [place] [address]- Medications What How Much When Instructions New cephalexin (Keflex 500 mg Cap) 1 Capsules By Mouth Every 12 hours Duration: 10 Days Pickup at [facility] #90039 Changed estradiol topical (estradiol 0.1 mg/ g Vag Crm) 1 Gram Vaginal As Directed Plunge 1 gm vaginally then apply excess cream around the urethra once a week at night. Pickup at [facility] #80574 Unchanged albuterol (Albuterol (Eqv-Proventil HFA) 90 mcg/ [...] or concerns Unchanged omeprazole (omeprazole 40 mg Cap-DR) Contact prescribing physician if questions or concerns Unchanged potassium chloride 20 Milliequivalent By Mouth Contact prescribing physician if questions or concerns Unchanged predniSONE 10 Milligram By Mouth Every day Contact prescribing physician if questions or concerns Unchanged pregabalin (Lyrica) 100 Milligram By Mouth 3 times a day Contact prescribing physician if questions or concerns Pharmacy Information [facility] #[id number]: [address] [place], [place] [phone] Allergies Latex (RASH) Zithromax (HIVES) Problems Ongoing [...] The urethra (more content not included)... Normal [facility] Urology Office/Clinic Noteon 05-12-2024 Urology Office/Clinic Note [...] x 10 days. SEs discussed. Sent to [facility]. unable to send urine for culture today due to no transport. -Restart Estradiol cream. Use 1x/week. Notify office if experiencing SEs. Sent to [facility]. 3. Asymptomatic microscopic hematuria (R31.21: Asymptomatic microscopic hematuria) Chronic. [2] Follow-up With When Contact Information Ihsan BROWN MD, L [facility] [address], [place] [address]- Additional Instructions: 6 mos for UD Patient [...] refills GUAIFE (more content not included)... Normal [facility] Comment on above: Result Comment: Elec tronically Signed By: Ihsan BROWN MD\.br\Date and Time Signed: 05/12/24 17:00 EST\.br\Electronically Co-Signed By: Katarina Bose\.br\Date and Time Co-Signed: 05/12/24 16:58 EST 36on 02-12-2024 36 Tried to contact patient again. She has no VM. [facility] 36on 01-29-2024 36 Regarding lab result s from 01/07/2024: MD Kika Becerra MA Blood work is ok, follow up as planned in 6 months. Tried to contact patient but no VM. Will try again tomorrow. [facility] Office Visiton 01-07-2024 Follow-up visit [id number] Covert,Lise Easton 1955 F Date Provider Department Center 01/07/2024 Andrew-JER NEFF MARC Kirk Family History Problem Relation Age of Onset Stroke Father Stroke Father's Sister Coronary artery disease Paternal Grandmother Family Status - Relation Status Age at Father Father's Sister Paternal Grandmother Level of Service:[address]1406 [place] OFFICE/OUTPATIENT ESTABLISHED MOD MDM 30 MIN [facility] Consent for Procedure/Surger yon 11-12-2023 Consent for Procedure/Surgery [id number] [facility] Patient Educationon 11-09-19 24 Patient Education [...] including vitamins, herbs, eye drops, creams, and qbhq-kwx-npfmdgh medicines. ? Any problems you or family [...] tells you to take them. ? Taking vkga-vkd-thhlhev medicines, vitamins, herbs, and supplements. General instructions [...] these instructions at home: Medicines ? Take sthr-jee-woacxhv and prescription medicines only as told by [...] to prevent or treat constipation: ? Take xicq-hov-cpafuhp or prescription medicines. ? Eat foods that [...] You pa (more content not included)... Normal [facility] Urology Office/Clinic Noteon 11-09-2023 Urology Office/Clinic [...] Tight The Urethra was dilated to: 20-32 Sen[place] with sounds. Specimens Removed: None Postoperative Information [...] Contact Information KEVIN SALDIVAR, Ihsan Wild, URL [facility] [place] [place] [address]- Additional Instructions: 6 mos w/ IO UD [...] Vitamin D3 (more content not included)... [facility] Comment on above: Result Comment: Elec tronically Signed By: KEVIN SALDIVAR, Ihsan Ureña.fritz\Date and Time Signed: 11/09/23 12:24 EDT\.br\Electronically Co-Signed By: Amanda Camara.fritz\Date and Time Co-Signed: 11/09/23 12:14 EDT 36on 09-03-2023 36 Home health informed and script sent [facility] Orders Onlyon 08-30-2023 Orders Only [id number] Covert,Lise Easton 1955 F Date Provider Department Center 08/30/2023 RUSH HENNESSY MARC Kirk Family History Problem Relation Age of Onset Stroke Father Stroke Father's Sister Coronary artery disease Paternal Grandmother Family Status - Relation Status Age at Father Father's Sister Paternal Grandmother Normal [facility] Office Visiton 06-27-2023 Follow-up visit [id number] Covert,Lise Easton 1955 F Date Provider Department Center 06/27/2023 JER LARRY MARC Kirk Family History Problem Relation Age of Onset Stroke Father Stroke Father's Sister Coronary artery disease Paternal Grandmother Family Status - Relation Status Age at Father Father's Sister Paternal Grandmother Level of Service:53243 [place] OFFICE/OUTPATIENT ESTABLISHED LOW MDM [address] [facility] 30on 06-06-2023 30 The patient is [...] for stability, deterioration, or improvement Normal [facility] BASIC METABOLIC PANELon 11-2 Anion gap [Moles/Vol] 9 mmol/L Normal 7-20 [facility] Comment on above: Performed By: #### L [id number] #### [facility] ([facility]) [address] [place] [address] Calcium [Mass/Vol] 8.3 mg/dL Low 8.6-10.3 [facility] Comment on above: Performed By: #### L [id number] #### [facility] ([facility]) [address] [place] [address] Chloride [Moles/Vol] 99 mmol/L Normal 98-107 [facility] Comment on above: Performed By: #### L [id number] #### [facility] ([facility]) [address] [place] [address] CO2 [Moles/Vol] 26 mmol/L Normal 21-31 [facility] Comment on above: Performed By: #### L [id number] #### [facility] ([facility]) [address] [place] [address] Creatinine [Mass/Vol] 0.72 mg/dL Normal 0.60-1.20 [facility] Comment on above: Performed By: #### L [id number] #### [facility] ([facility]) [address] [place] [address] GLOMERULAR FILTRATION RATE ML/MIN/1.73 SQ M.PREDICTED 92.2 mL/min/1.73m*2 Normal >60.0 [facility] Comment on above: Result Comment: [facility]???s estimated glomerular filtration rate (eGFR) will [...] individuals. Performed By: #### L [id number] #### [facility] ([facility]) [address] [place] [address] Glucose [Mass/Vol] 107 mg/dL High 70-100 [facility] Comment on above: Performed By: #### L [id number] #### [facility] ([facility]) [address] [place] [address] Potassium [Moles/Vol] 3.9 mmol/L Normal 3.5-5.1 [facility] Comment on above: Performed By: #### L [id number] #### [facility] ([facility]) [address] [place] [address] Sodium [Moles/Vol] 130 mmol/L Low 136-145 [facility] Comment on above: Performed By: #### L [id number] #### [facility] ([facility]) [address] [place] [address] Urea nitrogen [Mass/Vol] 12 mg/dL Normal 7-25 [facility] Comment on above: Performed By: #### L [id number] #### [facility] ([facility]) [address] [place] [address] UREA NITROGEN/CREATININE (MASS RATIO) IN SER/PLAS 16.[address] [facility] Comment on above: Performed By: #### L [id number] #### [facility] ([facility]) [address] [place] [address] CBCon 06-06-2023 Erythrocyte distribution width (RBC) [Ratio] 13.4 % Normal 11.5-15.0 [facility] Comment on above: Performed By: #### L [id number] #### [facility] ([facility]) [address] [address] ERYTHROCYTE MEAN CORPUSCULAR HEMOGLOBIN CONCENTRATION (G/DL) BY AUTOMATED 33.4 g/dL Normal 32.0-35.0 [facility] Comment on above: Performed By: #### L [id number] #### [facility] ([facility]) [address] [place] [address] Hematocrit (Bld) [Volume fraction] 28.7 % Low 36.0-48.0 [facility] Comment on above: Performed By: #### L [id number] #### [facility] ([facility]) [address] [place] [address] Hemoglobin (Bld) [Mass/Vol] 9.6 g/dL Low 12.0-15.0 [facility] Comment on above: Performed By: #### L [id number] #### [facility] ([facility]) [address] [place] [address] MCH (RBC) [Entitic mass] 28.2 pg Normal 27.0-33.0 [facility] Comment on above: Performed By: #### L [id number] #### [facility] ([facility]) [address] [place] [address] MCV (RBC) [Entitic vol] 84.4 fL Normal 82.0-98.0 [facility] Comment on above: Performed By: #### L [id number] #### [facility] ([facility]) [address] [place] [address] PLATELETS (10*3/UL) IN BLOOD AUTOMATED COUNT 522 10*3/uL High 150-400 [facility] Comment on above: Performed By: #### L [id number] #### [facility] ([facility]) [address] [place] [address] RBC (Bld) [#/Vol] 3.40 10*6/uL Low 3.80-5.00 [facility] Comment on above: Performed By: #### L [id number] #### [facility] ([facility]) [address] [place] [address] WBC (Bld) [#/Vol] 10.31 10*3/uL Normal 4.00-10.60 [facility] Comment on above: Performed By: #### L [id number] #### [facility] ([facility]) [address] [place] [address] Letter (Out)on 06-06-2023 Letter (Out) [id number] Covert,Lise Easton 1955 F Date Provider Department Center 06/06/2023 [id number], GENERIC PRO*INIT None Family History Problem Relation Age of Onset Stroke Father Stroke Father's Sister Coronary artery disease Paternal Grandmother Family Status - Relation Status Age at Father Father's Sister Paternal Grandmother Normal [facility] MAGNESIUMon 06-06-2023 Magnesium [Mass/Vol] 1.9 mg/dL Normal 1.9-2.7 [facility] Comment on above: Performed By: #### L [id number] #### [facility] ([facility]) [address] [place] [address] 30on 06-05-2023 30 The patient is Moderately Stable - Low risk of patient condition declining or worsening The patient's goals for the shift include comfort The clinical goals for the shift include stable vitals Normal [facility] 30 Daily Case Managemen t Update Multidisciplinary rounds have been completed. Barriers to Discharge: Transfer from [place] for chest pain and NSTEMI. TTE ordered. Pending cardio rec. Trop was .06 down to .04. +UTI and Pneumonia. Continue IV Rocephin. Urine and blood cultures pending. Patient is from home with [facility] and 2L home 02 Diet: Dietary [...] your name here: DANIEL GUERIN 06/05/23 1508 [facility] 30 The patient is Moderately Unstable - Medium risk of patient condition declining or worsening The patient's goals for the shift include comfort The clinical goals for the shift include vss Over the shift, the patient did not make progress toward the following goals. Barriers to progression include . Recommendations to address these barriers include . [facility] 30 The patient is Moderately Stable [...] injury: Assess patient frequently for physical needs [place] fall precautions as indicated by assessment Identify [...] prevent overall improvement and discharge Normal [facility] ANTI-XA (HEPARIN LEVEL)on HEPARIN UNFRACTIONATED (U/ML) IN PPP BY CHROMOGENIC METHOD <0.10 Invalid Interpretation Code 0.3-0.7 [facility] Comment on above: Order Comment: Check anti-Xa level every 6 hours while on heparin infusion, or per protocol. Result Comment: [place] roxaban and Apixaban will interfere with the anti Xa assay used to monitor UFH and LMWH. Performed By: #### L [id number] #### [facility] ([facility]) [address] [place] [address] HEPARIN UNFRACTIONATED (U/ML) IN PPP BY CHROMOGENIC METHOD <0.10 Invalid Interpretation Code 0.3-0.7 [facility] Comment on above: Order Comment: Check anti-Xa level every 6 hours while on heparin infusion, or per protocol. Result Comment: [place] roxaban and Apixaban will interfere with the anti Xa assay used to monitor UFH and LMWH. Performed By: #### L [id number] #### [facility] ([facility]) [address] [place] [address] APTTon 06-05-2023 ACTIVATED PARTIAL THROMBOPLASTIN TIME IN PPP BY COAGULATION ASSAY 38.8 Seconds High 25.0-35.0 [facility] Comment on above: Result Comment: Clin ical significance of the APTT is questionable in the presence of heparin. Performed By: #### L [id number] #### [facility] ([facility]) [address] [place] [address] B-TYPE NATRIURETIC PEPTIDEon 06-05-2023 Natriuretic peptide B (Bld) [Mass/Vol] 136 pg/mL High 0-100 [facility] Comment on above: Performed By: #### L [id number] #### [facility] ([facility]) [address] [place] [address] BLOOD CULTUREon 06-05-2023 Bacteria identified Cx Nom (Bld) No growth at 5 days Normal [facility] Comment on above: Performed By: #### L [id number] ####[facility] ([facility])[address] [place] [address] Order Comment: From a different site than #1. CBC WITH AUTO DIFFERENTIALon 06-05-2023 Basophils (Bld) [#/Vol] 0.05 10*3/uL Normal 0.00-0.20 [facility] Comment on above: Performed By: #### L [id number] #### [facility] ([facility]) [address] [place] [address] Basophils/100 WBC (Bld) 0.3 % Normal 0.0-1.0 [facility] Comment on above: Performed By: #### L [id number] #### [facility] ([facility]) [address] [place] [address] Eosinophils (Bld) [#/Vol] 0.02 10*3/uL Normal 0.00-0.50 [facility] Comment on above: Performed By: #### L [id number] #### [facility] ([facility]) [address] [place] [address] Eosinophils/100 WBC (Bld) 0.1 % Normal 0.0-6.0 [facility] Comment on above: Performed By: #### L [id number] #### [facility] ([facility]) [address] [place] [address] Erythrocyte distribution width (RBC) [Ratio] 13.3 % Normal 11.5-15.0 [facility] Comment on above: Performed By: #### L [id number] #### [facility] ([facility]) [address] [place] [address] ERYTHROCYTE MEAN CORPUSCULAR HEMOGLOBIN CONCENTRATION (G/DL) BY AUTOMATED 32.4 g/dL Normal 32.0-35.0 [facility] Comment on above: Performed By: #### L [id number] #### [facility] ([facility]) [address] [place] [address] Hematocrit (Bld) [Volume fraction] 35.8 % Low 36.0-48.0 [facility] Comment on above: Performed By: #### L [id number] #### [facility] ([facility]) [address] [place] [address] Hemoglobin (Bld) [Mass/Vol] 11.6 g/dL Low 12.0-15.0 [facility] Comment on above: Performed By: #### L [id number] #### [facility] ([facility]) [address] [place] [address] Immature granulocytes (Bld) [#/Vol] 0.17 10*3/uL Normal 0.00-0.20 [facility] Comment on above: Performed By: #### L [id number] #### [facility] ([facility]) [address] [place] [address] Immature granulocytes/100 WBC (Bld) 1.0 % Normal 0.0-1.0 [facility] Comment on above: Performed By: #### L [id number] #### [facility] ([facility]) [address] [place] [address] Lymphocytes (Bld) [#/Vol] 0.80 10*3/uL Low 1.20-4.00 [facility] Comment on above: Performed By: #### L [id number] #### [facility] ([facility]) [address] [place] [address] Lymphocytes/100 WBC (Bld) 4.6 % Low 20.0-45.0 [facility] Comment on above: Performed By: #### L [id number] #### [facility] ([facility]) [address] [place] [address] MCH (RBC) [Entitic mass] 28.3 pg Normal 27.0-33.0 [facility] Comment on above: Performed By: #### L [id number] #### [facility] ([facility]) [address] [place] [address] MCV (RBC) [Entitic vol] 87.3 fL Normal 82.0-98.0 [facility] Comment on above: Performed By: #### L [id number] #### [facility] ([facility]) [address] [place] [address] Monocytes (Bld) [#/Vol] 0.78 10*3/uL Normal 0.10-1.00 [facility] Comment on above: Performed By: #### L [id number] #### [facility] ([facility]) [address] [place] [address] Monocytes/100 WBC (Bld) 4.5 % Low 5.0-12.0 [facility] Comment on above: Performed By: #### L [id number] #### [facility] ([facility]) [address] [place] [address] Neutrophils (Bld) [#/Vol] 15.46 10*3/uL High 1.60-7.60 [facility] Comment on above: Performed By: #### L [id number] #### [facility] ([facility]) [address] [address] Neutrophils/100 WBC (Bld) 89.5 % High 40.0-72.0 [facility] Comment on above: Performed By: #### L [id number] #### [facility] ([facility]) [address] [place] [address] NRBC (PER 100 WBCS) BY AUTOMATED COUNT 0.0 % Normal 0 [facility] Comment on above: Performed By: #### L [id number] #### [facility] ([facility]) [address] [place] [address] PLATELETS (10*3/UL) IN BLOOD AUTOMATED COUNT 517 10*3/uL High 150-400 [facility] Comment on above: Performed By: #### L [id number] #### [facility] ([facility]) [address] [place] [address] RBC (Bld) [#/Vol] 4.10 10*6/uL Normal 3.80-5.00 [facility] Comment on above: Performed By: #### L [id number] #### [facility] ([facility]) [address] [place] [address] WBC (Bld) [#/Vol] 17.28 10*3/uL High 4.00-10.60 [facility] Comment on above: Performed By: #### L [id number] #### [facility] ([facility]) [address] [place] [address] COMPREHENSIVE METABOLIC PANE [place] 06-05-2023 ALANINE AMINOTRANSFERASE (SGPT) (U/L) IN SER/PLAS <3 Low 7-52 [facility] Comment on above: Performed By: #### L [id number] #### [facility] ([facility]) [address] [place] [address] Albumin [Mass/Vol] 3.1 g/dL Low 3.5-5.7 [facility] Comment on above: Performed By: #### L [id number] #### [facility] ([facility]) [address] [place] [address] ALP [Catalytic activity/Vol] 83 U/L Normal 34-104 [facility] Comment on above: Performed By: #### L [id number] #### [facility] ([facility]) [address] [place] [address] Anion gap [Moles/Vol] 13 mmol/L Normal 7-20 [facility] Comment on above: Performed By: #### L [id number] #### [facility] ([facility]) [address] [place] [address] AST [Catalytic activity/Vol] 14 U/L Normal 13-39 [facility] Comment on above: Performed By: #### L [id number] #### [facility] ([facility]) [address] [place] [address] Bilirubin [Mass/Vol] 0.3 mg/dL Normal 0.3-1.0 [facility] Comment on above: Performed By: #### L [id number] #### [facility] ([facility]) [address] [place] [address] Calcium [Mass/Vol] 8.9 mg/dL Normal 8.6-10.3 [facility] Comment on above: Performed By: #### L [id number] #### [facility] ([facility]) [address] [place] [address] Chloride [Moles/Vol] 98 mmol/L Normal 98-107 [facility] Comment on above: Performed By: #### L [id number] #### [facility] ([facility]) [address] [place] [address] CO2 [Moles/Vol] 25 mmol/L Normal 21-31 [facility] Comment on above: Performed By: #### L [id number] #### [facility] ([facility]) [address] [place] [address] Creatinine [Mass/Vol] 0.96 mg/dL Normal 0.60-1.20 [facility] Comment on above: Performed By: #### L [id number] #### [facility] ([facility]) [address] [place] [address] GLOMERULAR FILTRATION RATE ML/MIN/1.73 SQ M.PREDICTED 65.3 mL/min/1.73m*2 Normal >60.0 [facility] Comment on above: Result Comment: [facility]???s estimated glomerular filtration rate (eGFR) will [...] individuals. Performed By: #### L [id number] #### [facility] ([facility]) [address] [place] [address] Glucose [Mass/Vol] 93 mg/dL Normal 70-100 [facility] Comment on above: Performed By: #### L [id number] #### [facility] ([facility]) [address] [place] [address] Potassium [Moles/Vol] 3.3 mmol/L Low 3.5-5.1 [facility] Comment on above: Performed By: #### L [id number] #### [facility] ([facility]) [address] [place] [address] Protein [Mass/Vol] 5.7 g/dL Low 6.0-8.3 [facility] Comment on above: Performed By: #### L [id number] #### [facility] ([facility]) [address] [place] [address] Sodium [Moles/Vol] 133 mmol/L Low 136-145 [facility] Comment on above: Performed By: #### L [id number] #### [facility] ([facility]) [address] [place] [address] Urea nitrogen [Mass/Vol] 12 mg/dL Normal 7-25 [facility] Comment on above: Performed By: #### L [id number] #### [facility] ([facility]) [address] [place] [address] UREA NITROGEN/CREATININE (MASS RATIO) IN SER/PLAS 12.[address] [facility] Comment on above: Performed By: #### L [id number] #### [facility] ([facility]) [address] [place] [address] CONSULTon 06-05-2023 CONSULT - Attestation signed by [...] Nausea / Vomiting and Urinary symptoms to [facility], there she was found to have UTI, labs showed WBC of 17 and she was started on IV antibiotics, work up also showed high sensitive troponin of 62, She doesn't report any chest pain, or discomfort. She was started on heparin drip and was transferred here to [facility]. Today she reports no chest [...] NEURO: (more content not included)... Normal [facility] ETHANOLon 06-05-2023 ETHANOL (MG/DL) IN SER/PLAS <[address] [facility] Comment on above: Performed By: #### L [id number] #### [facility] ([facility]) [address] [place] [address] ETHANOL CALCULATED (%) Normal [facility] Comment on above: Performed By: #### L [id number] #### [facility] ([facility]) [address] [place] [address] HEMOGLOBIN A1Con 06-05-2023 Glucose [Mass/Vol] 160 mg/dL Normal [facility] Comment on above: Performed By: #### L [id number] ####[facility] ([facility])[address] [place] [address] HbA1c (Bld) [Mass fraction] 7.2 % High 4.0-6.0 [facility] Comment on above: Performed By: #### L [id number] ####[facility] ([facility])[address] [place] [address] LACTIC ACID WITH 4 HOUR REFL EXon 06-05-2023 LACTATE (MMOL/L) IN SER/PLAS 1.1 mmol/L Normal 0.5-2.2 [facility] Comment on above: Performed By: #### L [id number] #### [facility] ([facility]) [address] [place] [address] LEGIONELLA ANTIGEN, URINEon 06-05-2023 LEGIONELLA AG, UR Negative Normal NEG [facility] Comment on above: Result Comment: L. p neumophila serogroup 1 antigen not detected. A negative result does not exclude infection with Leginella pnemophila serogroup 1 nor does it rule out other microbial-caused respiratory infections of disease caused by other serogroups of Legionella pneumophila. Test Performed by [facility] [address] [place] [address] - Released 06/05/2023 12:36 Performed By: #### L [id number] #### [facility] [address] [place] [address] LIPID PANELon 06-05-2023 CHOL/HDL 1.6 mg/dL Normal [facility] Comment on above: Performed By: #### L [id number] #### [facility] ([facility]) [address] [place] [address] Cholesterol [Mass/Vol] 74 mg/dL Low 120-200 [facility] Comment on above: Performed By: #### L [id number] #### [facility] ([facility]) [address] [place] [address] Magnesium [Mass/Vol] 65 mg/dL Normal 40-149 [facility] Comment on above: Result Comment: TRIG LYCERIDE REFERENCE RANGE: 20 YEARS AND OLDER CARDIOVASCULAR RISK LESS THAN 150 mg/dL LOW RISK 150 TO 199 mg/dL BORDERLINE RISK 200 mg/dL AND GREATER HIGH RISK Performed By: #### L [id number] #### [facility] ([facility]) [address] [place] [address] Magnesium [Mass/Vol] 14 mg/dL Normal 0-160 [facility] Comment on above: Performed By: #### L [id number] #### [facility] ([facility]) [address] [place] [address] Magnesium [Mass/Vol] 47 mg/dL Normal 23-92 [facility] Comment on above: Performed By: #### L [id number] #### [facility] ([facility]) [address] [place] [address] NON HDL CHOL. (LDL+VLDL) [address] [facility] Comment on above: Performed By: #### L [id number] #### [facility] ([facility]) [address] [place] [address] TOTAL VLDL-C 13 mg/dL Normal 0-40 [facility] Comment on above: Performed By: #### L [id number] #### [facility] ([facility]) [address] [place] [address] MAGNESIUMon 06-05-2023 Magnesium [Mass/Vol] 1.1 mg/dL Low 1.9-2.7 [facility] Comment on above: Performed By: #### L [id number] #### [facility] ([facility]) [address] [place] [address] PHOSPHORUSon 06-05-2023 Magnesium [Mass/Vol] 2.8 mg/dL Normal 2.5-5.0 [facility] Comment on above: Performed By: #### L [id number] #### [facility] ([facility]) [address] [place] [address] PROTIME-INRon 06-05-2023 INR IN PPP BY COAGULATION ASSAY 1.25 High 0.90-1.10 [facility] Comment on above: Result Comment: ACCC [...] 1995;[id number]. Performed By: #### L [id number] #### [facility] ([facility]) [address] [place] [address] PROTHROMBIN TIME (PT) IN PPP BY COAGULATION ASSAY 15.7 Seconds High 12.3-14.8 [facility] Comment on above: Performed By: #### L [id number] #### [facility] ([facility]) [address] [place] [address] TOXICOLOGY PANEL URINEon AMPHETAMINE+METHAMPHE TAMINE SCREEN (PRESENCE) IN URINE Negative Normal Negative [facility] Comment on above: Performed By: #### L [id number] ####[facility] ([facility])[address] [place] [address] BARBITURATES PRESENCE IN URINE BY SCREEN METHOD Negative Normal Negative [facility] Comment on above: Performed By: #### L [id number] ####[facility] ([facility])[address] [place] [address] Benzodiazepines Ql (U) Negative Normal Negative [facility] Comment on above: Performed By: #### L [id number] ####[facility] ([facility])[address] [place] [address] CANNABINOID (PRESENCE) IN URINE BY SCREEN METHOD Negative Normal Negative [facility] Comment on above: Performed By: #### L [id number] ####[facility] ([facility])[address] [place] [address] Cocaine Ql (U) Negative Normal Negative [facility] Comment on above: Performed By: #### L [id number] ####[facility] ([facility])[address] [place] [address] METHADONE (PRESENCE) IN URINE BY SCREEN METHOD Negative Normal Negative [facility] Comment on above: Performed By: #### L [id number] ####[facility] ([facility])[address] [place] [address] OPIATES (PRESENCE) IN URINE BY SCREEN METHOD Positive Abnormal Negative [facility] Comment on above: Performed By: #### L [id number] ####[facility] ([facility])[address] [place] [address] PHENCYCLIDINE PRESENCE IN URINE BY SCREEN METHOD Negative Normal Negative [facility] Comment on above: Performed By: #### L [id number] ####[facility] ([facility])[address] [place] [address] Propoxyphene Screen Ql (U) Negative Normal Negative [facility] Comment on above: Performed By: #### L [id number] ####[facility] ([facility])[address] [place] [address] TRICYCLIC ANTIDEPRESSANTS (PRESENCE) IN URINE Negative Normal Negative [facility] Comment on above: Performed By: #### L [id number] ####[facility] ([facility])[address] [place] [address] TROPONIN Ion 11-28-2023 Troponin I.cardiac [Mass/Vol] 0.04 ng/mL Normal 0.00-0.04 [facility] Comment on above: Performed By: #### L [id number] #### [facility] ([facility]) [address] [place] [address] Troponin I.cardiac [Mass/Vol] 0.06 ng/mL High 0.00-0.04 [facility] Comment on above: Performed By: #### L [id number] ####[facility] ([facility])[address] [place] [address] TSH3 REFLEX TO FT4on 023 THYROTROPIN (MIU/L) IN SER/PLAS BY DETECTION LIMIT <= 0.05 MIU/L 1.46 mIU/L Normal 0.34-5.60 [facility] Comment on above: Performed By: #### L [id number] ####[facility] ([facility])[address] [place] [address] URINALYSIS MICROSCOPIC WITH REFLEX CULTUREon 06-05-2023 CASTS IN URINE Normal [facility] Comment on above: Performed By: #### L [id number] ####[facility] ([facility])[address] [place] [address] CRYSTALS IN URINE Normal [facility] Comment on above: Performed By: #### L [id number] ####[facility] ([facility])[address] [place] [address] OTHER MICROSCOPIC ELEMENTS Normal [facility] Comment on above: Performed By: #### L [id number] ####[facility] ([facility])[address] [place] [address] RBC (#/HPF) IN URINE SEDIMENT 6-[address] [facility] Comment on above: Performed By: #### L [id number] ####[facility] ([facility])[address] [place] [address] SQUAMOUS EPITHELIAL CELLS (#/HPF) IN URINE SEDIMENT Many Abnormal None Seen, Occasional [facility] Comment on above: Performed By: #### L [id number] ####[facility] ([facility])[address] [place] [address] WBC (LEUKOCYTE) (#/HPF) IN URINE SEDIMENT >[address] [facility] Comment on above: Performed By: #### L [id number] ####[facility] ([facility])[address] [place] [address] URINALYSIS WITH REFLEX CULTU REon 06-05-2023 BILIRUBIN, TOTAL PRESENCE IN URINE Negative Normal Negative [facility] Comment on above: Performed By: #### L [id number] ####[facility] ([facility])[address] [place] [address] Clarity (U) Clear Normal Clear [facility] Comment on above: Performed By: #### L [id number] ####[facility] ([facility])[address] [place] [address] Color (U) Yellow Normal Yellow [facility] Comment on above: Performed By: #### L [id number] ####[facility] ([facility])[address] [place] [address] Glucose (U) [Mass/Vol] Negative Normal Negative [facility] Comment on above: Performed By: #### L [id number] ####[facility] ([facility])[address] [place] [address] HEMOGLOBIN PRESENCE IN URINE Moderate Abnormal Negative [facility] Comment on above: Performed By: #### L [id number] ####[facility] ([facility])[address] [place] [address] Ketones Ql (U) Trace Abnormal Negative [facility] Comment on above: Performed By: #### L [id number] ####[facility] ([facility])[address] [place] [address] LEUKOCYTE ESTERASE PRESENCE IN URINE BY TEST STRIP Large Abnormal Negative [facility] Comment on above: Performed By: #### L [id number] ####[facility] ([facility])[address] [place] [address] NITRITE PRESENCE IN URINE Positive Abnormal Negative [facility] Comment on above: Performed By: #### L [id number] ####[facility] ([facility])[address] [place] [address] pH (U) 6.0 [pH] Normal 5.0-8.0 [facility] Comment on above: Performed By: #### L [id number] ####[facility] ([facility])[address] [place] [address] Protein (U) [Mass/Vol] 30 mg/dL Abnormal Negative [facility] Comment on above: Performed By: #### L [id number] ####[facility] ([facility])[address] [place] [address] Specific gravity (U) [Rel density] 1.012 Low 1.015-1.020 [facility] Comment on above: Performed By: #### L [id number] ####[facility] LAB ([facility])[address] [place] [address] 30on 06-04-2023 30 The patient is Moderately Stable - Low risk of patient condition declining or worsening The patient's goals for the shift include comfort The clinical goals for the shift include VSS Normal [facility] CT CHEST WO CONon 10-31-2022 CT [...] REYNOSO Date: 2022-10-31 17:34 Normal [facility] HEMOGLOBINon 10-31-2022 Hemoglobin (Bld) [Mass/Vol] 11.8 g/dL Critically low 12.0-16.0 [facility] Comment on above: Performed By: #### C VDTB #### [facility] [address] [place] [address] Dr. Kayley Hatfield BUNon 10-10-2022 Urea nitrogen [Mass/Vol] 13.0 mg/dL Normal 7.0-18.0 [facility] Comment on above: Performed By: #### L DH #### [facility] [address] [place] [address] Dr. Kayley Hatfield CALCIUMon 10-10-2022 Calcium [Mass/Vol] 9.7 mg/dL Normal 8.5-10.1 [facility] Comment on above: Performed By: #### L DH #### [facility] [address] [place] [address] Dr. Kayley Hatfield CREATININEon 10-10-2022 Creatinine [Mass/Vol] 1.19 mg/dL Critically high 0.55-1.02 [facility] Comment on above: Performed By: #### L DH #### [facility] [address] [place] [address] Dr. Kayley Hatfield EGFR-AF LAO 55 mL/min/1.73m2 Critically low >=60 [facility] Comment on above: Performed By: #### L DH #### [facility] [address] [place] [address] Dr. Kayley Hatfield EGFR-NON AF LAO 46 mL/min/1.73m2 Critically low >=60 [facility] Comment on above: Performed By: #### L DH #### [facility] [address] [place] [address] Dr. Kayley Hatfield CRPon 10-10-2022 CRP [Mass/Vol] mg/L Normal <=1.0 [facility] Comment on above: Performed By: #### L DH #### [facility] [address] [place] [address] Dr. Kayley Hatfield MAGNESIUMon 10-10-2022 Magnesium [Mass/Vol] 1.7 mg/dL Critically low 1.8-2.[address] [facility] Comment on above: Performed By: #### L DH #### [facility] [address] [place] [address] Dr. Kayley Hatfield PHOSPHORUSon 10-10-2022 Phosphate [Mass/Vol] 4.0 mg/dL Normal 2.6-4.[address] [facility] Comment on above: Performed By: #### L DH #### [facility] [address] [place] [address] Dr. Kayley Hatfield SED RATE WESTERGRENon 2022 SED RATE 25 mm/hr Normal <=[address] [facility] Comment on above: Performed By: #### P RTELEC #### [facility] [address] [place] [address] Dr. Kayley Hatfield CBC AUTO DIFFon 05-01-2022 BASO # 0.1 103/ul Normal 0.0-0.1 [facility] Comment on above: Performed By: #### P RBC #### [facility] [address] [place] [address] Dr. Kayley Hatfield Basophils/100 WBC (Bld) 0.5 % Normal 0.2-2.[address] [facility] Comment on above: Performed By: #### P RBC #### [facility] [address] [place] [address] Dr. Kayley Hatfield EO # 0.2 103/ul Normal 0.0-0.[address] [facility] Comment on above: Performed By: #### P RBC #### [facility] [address] [place] [address] Dr. Kayley Hatfield Eosinophils/100 WBC (Bld) 1.2 % Normal 0.9-7.0 [facility] Comment on above: Performed By: #### P RBC #### [facility] [address] [address] [address] Kayley Hatfield Erythrocyte distribution width (RBC) [Ratio] 14.9 % Normal 11.0-15.0 [facility] Comment on above: Performed By: #### P RBC #### [facility] [address] [address] [address] Kayley Hatfield Hematocrit (Bld) [Volume fraction] 34.2 % Critically low 36.0-48.0 [facility] Comment on above: Performed By: #### P RBC #### [facility] [address] [place] [address] Dr. Kayley Hatfield Hemoglobin (Bld) [Mass/Vol] 10.3 g/dL Critically low 12.0-16.0 [facility] Comment on above: Performed By: #### P RBC #### [facility] [address] [place] [address] Dr. Kayley Hatfield IG # 0.19 10e3/ul Critically high 0.00-0.03 [facility] Comment on above: Performed By: #### P RBC #### [facility] [address] [place] [address] Dr. Kayley Hatfield IG % 1.3 % Critically high 0.0-0.5 [facility] Comment on above: Performed By: #### P RBC #### [facility] [address] [place] [address] Dr. Kayley Hatfield LYMPH # 1.1 103/ul Critically low 1.2-3.8 [facility] Comment on above: Performed By: #### P RBC #### [facility] [address] [address] [address] Kayley Hatfield Lymphocytes/100 WBC (Bld) 7.3 % Critically low 20.5-60.0 [facility] Comment on above: Performed By: #### P RBC #### [facility] [address] [place] [address] Dr. Kayley Hatfield MANUAL DIFF REQ NO Normal [facility] Comment on above: Performed By: #### P RBC #### [facility] [address] [address] [address] Kayley Hatfield MCH (RBC) [Entitic mass] 28.4 pg Normal 26.7-34.0 [facility] Comment on above: Performed By: #### P RBC #### [facility] [address] [address] [address] Kayley Hatfield MCHC (RBC) [Mass/Vol] 30.1 g/dL Normal 29.9-35.2 [facility] Comment on above: Performed By: #### P RBC #### [facility] [address] [address] [address] Kayley Hatfield MCV (RBC) [Entitic vol] 94.2 fL Normal 81.0-99.0 [facility] Comment on above: Performed By: #### P RBC #### [facility] [address] [place] [address] Dr. Kayley Hatfield MONO # 0.6 103/ul Normal 0.3-0.8 [facility] Comment on above: Performed By: #### P RBC #### [facility] [address] [address] [address] Kayley Hatfield Monocytes/100 WBC (Bld) 4.0 % Normal 1.7-12.0 [facility] Comment on above: Performed By: #### P RBC #### [facility] [address] [address] [address] Kayley Hatfield NEUT # 12.5 103/ul Critically high 1.4-6.5 [facility] Comment on above: Performed By: #### P RBC #### [facility] [address] [address] [address] Kayley Hatfield Neutrophils/100 WBC (Bld) 85.7 % Critically high 43.0-75.0 [facility] Comment on above: Performed By: #### P RBC #### [facility] [address] [place] [address] Dr. Kayley Hatfield Platelet mean volume (Bld) [Entitic vol] 8.5 fL Critically low 9.5-13.5 [facility] Comment on above: Performed By: #### P RBC #### [facility] [address] [place] [address] Dr. Kayley Hatfield PLT 574 103/ul Critically high 150-450 [facility] Comment on above: Performed By: #### P RBC #### [facility] [address] [place] [address] Dr. Kayley Hatfield RBC 3.63 106/ul Critically low 4.20-5.40 [facility] Comment on above: Performed By: #### P RBC #### [facility] [address] [place] [address] Dr. Kayley Hatfield WBC 14.6 103/ul Critically high 4.0-11.0 [facility] Comment on above: Performed By: #### P RBC #### [facility] [address] [place] [address] Dr. Kayley Hatfield MAGNESIUMon 05-01-2022 Magnesium [Mass/Vol] 2.1 mg/dL Normal 1.8-2.4 [facility] Comment on above: Performed By: #### O BSCRN #### [facility] [address] [place] [address] Dr. Kayley Hatfield PROF CHEM 8 (BAS METB)on Anion gap [Moles/Vol] 8.6 mmol/L Normal [facility] Comment on above: Performed By: #### O BSCRN #### [facility] [address] [place] [address] Dr. Kayley Hatfield Calcium [Mass/Vol] 9.0 mg/dL Normal 8.5-10.1 [facility] Comment on above: Performed By: #### O BSCRN #### [facility] [address] [place] [address] Dr. Kayley Hatfield Chloride [Moles/Vol] 101 mmol/L Normal 98-[address] [facility] Comment on above: Performed By: #### O BSCRN #### [facility] [address] [place] [address] Dr. Kayley Hatfield CO2 [Moles/Vol] 33.0 mmol/L Critically high 21.0-32.0 [facility] Comment on above: Performed By: #### O BSCRN #### [facility] [address] [place] [address] Dr. Kayley Hatfield Creatinine [Mass/Vol] 0.94 mg/dL Normal 0.55-1.02 [facility] Comment on above: Performed By: #### O BSCRN #### [facility] [address] [address] [address] Kayley Hatfield EGFR-AF LAO >60 Normal >=60 [facility] Comment on above: Performed By: #### O BSCRN #### [facility] [address] [place] [address] Dr. Kayley Hatfield EGFR-NON AF LAO >60 Normal >=60 [facility] Comment on above: Performed By: #### O BSCRN #### [facility] [address] [address] [address] Kayley Hatfield Glucose [Mass/Vol] 143 mg/dL Critically high 74-106 [facility] Comment on above: Performed By: #### O BSCRN #### [facility] [address] [place] [address] Dr. Kayley Hatfield Potassium [Moles/Vol] 4.6 mmol/L Normal 3.5-5.1 [facility] Comment on above: Performed By: #### O BSCRN #### [facility] [address] [address] [address] Kayley Hatfield Sodium [Moles/Vol] 138 mmol/L Normal 136-145 [facility] Comment on above: Performed By: #### O BSCRN #### [facility] [address] [address] [address] Kayley Hatfield Urea nitrogen [Mass/Vol] 15.0 mg/dL Normal 7.0-18.0 [facility] Comment on above: Performed By: #### O BSCRN #### [facility] [address] [place] [address] Dr. Kayley Hatfield Urea nitrogen/Creatinine [Mass ratio] 16.0 mg/mg Normal [facility] Comment on above: Performed By: #### O BSCRN #### [facility] [address] [place] [address] Dr. Kayley Hatfield CBC AUTO DIFFon 04-26-2022 BASO # 0.1 103/ul Normal 0.0-0.1 [facility] Comment on above: Performed By: #### P RBC #### [facility] [address] [place] [address] Dr. Kayley Hatfield Basophils/100 WBC (Bld) 0.5 % Normal 0.2-2.0 [facility] Comment on above: Performed By: #### P RBC #### [facility] [address] [place] [address] Dr. Kayley Hatfield EO # 0.2 103/ul Normal 0.0-0.7 [facility] Comment on above: Performed By: #### P RBC #### [facility] [address] [place] [address] Dr. Kayley Hatfield Eosinophils/100 WBC (Bld) 1.8 % Normal 0.9-7.0 [facility] Comment on above: Performed By: #### P RBC #### [facility] [address] [place] [address] Dr. Kayley Hatfield Erythrocyte distribution width (RBC) [Ratio] 14.7 % Normal 11.0-15.0 [facility] Comment on above: Performed By: #### P RBC #### [facility] [address] [place] [address] Dr. Kayley Hatfield Hematocrit (Bld) [Volume fraction] 32.0 % Critically low 36.0-48.0 [facility] Comment on above: Performed By: #### P RBC #### [facility] [address] [place] [address] Dr. Kayley Hatfield Hemoglobin (Bld) [Mass/Vol] 9.9 g/dL Critically low 12.0-16.0 [facility] Comment on above: Performed By: #### P RBC #### [facility] [address] [place] [address] Dr. Kayley Hatfield IG # 0.07 10e3/ul Critically high 0.00-0.03 [facility] Comment on above: Performed By: #### P RBC #### [facility] [address] [place] [address] Dr. Kayley Hatfield IG % 0.6 % Critically high 0.0-0.5 [facility] Comment on above: Performed By: #### P RBC #### [facility] [address] [place] [address] Dr. Kayley Hatfield LYMPH # 1.2 103/ul Normal 1.2-3.8 [facility] Comment on above: Performed By: #### P RBC #### [facility] [address] [place] [address] Dr. Kayley Hatfield Lymphocytes/100 WBC (Bld) 10.9 % Critically low 20.5-60.0 [facility] Comment on above: Performed By: #### P RBC #### [facility] [address] [place] [address] Dr. Kayley Hatfield MANUAL DIFF REQ NO Normal [facility] Comment on above: Performed By: #### P RBC #### [facility] [address] [place] [address] Dr. Kaylye Hatfield MCH (RBC) [Entitic mass] 28.4 pg Normal 26.7-34.0 [facility] Comment on above: Performed By: #### P RBC #### [facility] [address] [place] [address] Dr. Kayley Hatfield MCHC (RBC) [Mass/Vol] 30.9 g/dL Normal 29.9-35.2 [facility] Comment on above: Performed By: #### P RBC #### [facility] [address] [place] [address] Dr. Kayley Hatfield MCV (RBC) [Entitic vol] 92.0 fL Normal 81.0-99.0 [facility] Comment on above: Performed By: #### P RBC #### [facility] [address] [place] [address] Dr. Kayley Hatfield MONO # 1.4 103/ul Critically high 0.3-0.8 [facility] Comment on above: Performed By: #### P RBC #### [facility] [address] [place] [address] Dr. Kayley Hatfield Monocytes/100 WBC (Bld) 11.9 % Normal 1.7-12.0 [facility] Comment on above: Performed By: #### P RBC #### [facility] [address] [place] [address] Dr. Kayley Hatfield NEUT # 8.4 103/ul Critically high 1.4-6.5 [facility] Comment on above: Performed By: #### P RBC #### [facility] [address] [place] [address] Dr. Kayley Hatfield Neutrophils/100 WBC (Bld) 74.3 % Normal 43.0-75.0 [facility] Comment on above: Performed By: #### P RBC #### [facility] [address] [place] [address] Dr. Kayley Hatfield Platelet mean volume (Bld) [Entitic vol] 8.8 fL Critically low 9.5-13.5 [facility] Comment on above: Performed By: #### P RBC #### [facility] [address] [place] [address] Dr. Kayley Hatfield PLT 953 103/ul Critically high 150-450 [facility] Comment on above: Performed By: #### P RBC #### [facility] [address] [place] [address] Dr. Kayley Hatfield RBC 3.48 106/ul Critically low 4.20-5.40 [facility] Comment on above: Performed By: #### P RBC #### [facility] [address] [address] [address] Kayley Hatfield WBC 11.3 103/ul Critically high 4.0-11.0 [facility] Comment on above: Performed By: #### P RBC #### [facility] [address] [place] [address] Dr. Kayley Hatfield POINT OF CARE GLUCOSEon 04-08 Glucose [Mass/Vol] 225 mg/dL Critically high 74-106 [facility] Comment on above: Performed By: #### B LDCX1 #### [facility] [address] [place] [address] Dr. Kayley Hatfield PROF CHEM 8 (BAS METB)on Anion gap [Moles/Vol] 10.7 mmol/L Normal [facility] Comment on above: Performed By: #### P RBC #### [facility] [address] [address] [address] Kayley Hatfield Calcium [Mass/Vol] 9.2 mg/dL Normal 8.5-10.1 [facility] Comment on above: Performed By: #### P RBC #### [facility] [address] [place] [address] Dr. Kayley Hatfield Chloride [Moles/Vol] 103 mmol/L Normal 98-107 [facility] Comment on above: Performed By: #### P RBC #### [facility] [address] [place] [address] Dr. Kayley Hatfield CO2 [Moles/Vol] 29.2 mmol/L Normal 21.0-32.0 [facility] Comment on above: Performed By: #### P RBC #### [facility] [address] [place] [address] Dr. Kayley Hatfield Creatinine [Mass/Vol] 0.85 mg/dL Normal 0.55-1.02 [facility] Comment on above: Performed By: #### P RBC #### [facility] [address] [place] [address] Dr. Kayley Hatfield EGFR-AF LAO >60 Normal >=60 [facility] Comment on above: Performed By: #### P RBC #### [facility] [address] [place] [address] Dr. Kayley Hatfield EGFR-NON AF LAO >60 Normal >=[address] [facility] Comment on above: Performed By: #### P RBC #### [facility] [address] [place] [address] Dr. Kayley Hatfield Glucose [Mass/Vol] 81 mg/dL Normal 74-106 [facility] Comment on above: Performed By: #### P RBC #### [facility] [address] [address] [address] Kayley Hatfield Potassium [Moles/Vol] 3.9 mmol/L Normal 3.5-5.1 [facility] Comment on above: Performed By: #### P RBC #### [facility] [address] [address] [address] Kayley Hatfield Sodium [Moles/Vol] 139 mmol/L Normal 136-145 [facility] Comment on above: Performed By: #### P RBC #### [facility] [address] [address] [address] Kayley Hatfield Urea nitrogen [Mass/Vol] 9.0 mg/dL Normal 7.0-18.0 [facility] Comment on above: Performed By: #### P RBC #### [facility] [address] [address] [address] Kayley Hatfield Urea nitrogen/Creatinine [Mass ratio] 10.6 mg/mg Normal [facility] Comment on above: Performed By: #### P RBC #### [facility] [address] [address] [address] Kayley Hatfield XR CHEST 2 Von [...] MIGUE REYNOSO Date: 2022-04-26 09:[address] [facility] BNPon 04-25-2022 Natriuretic peptide B (Bld) [Mass/Vol] 234.0 pg/mL Normal <=900.[address] [facility] Comment on above: Performed By: #### P RTELEC #### [facility] [address] [address] [address] Kayley Hatfield CBC AUTO DIFFon 04-25-2022 BASO # 0.1 103/ul Normal 0.0-0.[address] [facility] Comment on above: Performed By: #### P RBC #### [facility] [address] [place] [address] Dr. Kayley Hatfield Basophils/100 WBC (Bld) 0.4 % Normal 0.2-2.[address] [facility] Comment on above: Performed By: #### P RBC #### [facility] [address] [place] [address] Dr. Kayley Hatfield EO # 0.2 103/ul Normal 0.0-0.[address] [facility] Comment on above: Performed By: #### P RBC #### [facility] [address] [place] [address] Dr. Kayley Hatfield Eosinophils/100 WBC (Bld) 1.0 % Normal 0.9-7.[address] [facility] Comment on above: Performed By: #### P RBC #### [facility] [address] [place] [address] Dr. Kayley Hatfield Erythrocyte distribution width (RBC) [Ratio] 14.8 % Normal 11.0-15.[address] [facility] Comment on above: Performed By: #### P RBC #### [facility] [address] [place] [address] Dr. Kayley Hatfield Hematocrit (Bld) [Volume fraction] 35.4 % Critically low 36.0-48.[address] [facility] Comment on above: Performed By: #### P RBC #### [facility] [address] [place] [address] Dr. Kayley Hatfield Hemoglobin (Bld) [Mass/Vol] 10.9 g/dL Critically low 12.0-16.[address] [facility] Comment on above: Performed By: #### P RBC #### [facility] [address] [address] [address] Kayley Hatfield IG # 0.08 10e3/ul Critically high 0.00-0.03 [facility] Comment on above: Performed By: #### P RBC #### [facility] [address] [place] [address] Dr. Kayley Hatfield IG % 0.5 % Normal 0.0-0.5 [facility] Comment on above: Performed By: #### P RBC #### [facility] [address] [place] [address] Dr. Kayley Hatfield LYMPH # 1.2 103/ul Normal 1.2-3.8 [facility] Comment on above: Performed By: #### P RBC #### [facility] [address] [place] [address] Dr. Kayley Hatfield Lymphocytes/100 WBC (Bld) 7.4 % Critically low 20.5-60.0 [facility] Comment on above: Performed By: #### P RBC #### [facility] [address] [place] [address] Dr. Kayley Hatfield MANUAL DIFF REQ NO Normal [facility] Comment on above: Performed By: #### P RBC #### [facility] [address] [place] [address] Dr. Kayley Hatfield MCH (RBC) [Entitic mass] 27.9 pg Normal 26.7-34.0 [facility] Comment on above: Performed By: #### P RBC #### [facility] [address] [place] [address] Dr. Kayley Hatfield MCHC (RBC) [Mass/Vol] 30.8 g/dL Normal 29.9-35.2 [facility] Comment on above: Performed By: #### P RBC #### [facility] [address] [place] [address] Dr. Kayley Hatfield MCV (RBC) [Entitic vol] 90.5 fL Normal 81.0-99.0 [facility] Comment on above: Performed By: #### P RBC #### [facility] [address] [address] [address] Kayley Hatfield MONO # 1.5 103/ul Critically high 0.3-0.8 [facility] Comment on above: Performed By: #### P RBC #### [facility] [address] [address] [address] Kayley Hatfield Monocytes/100 WBC (Bld) 8.7 % Normal 1.7-12.[address] [facility] Comment on above: Performed By: #### P RBC #### [facility] [address] [address] [address] Kayley Hatfield NEUT # 13.8 103/ul Critically high 1.4-6.5 [facility] Comment on above: Performed By: #### P RBC #### [facility] [address] [place] [address] Dr. Kayley Hatfield Neutrophils/100 WBC (Bld) 82.0 % Critically high 43.0-75.[address] [facility] Comment on above: Performed By: #### P RBC #### [facility] [address] [address] [address] Kayley Hatfield Platelet mean volume (Bld) [Entitic vol] 8.9 fL Critically low 9.5-13.[address] [facility] Comment on above: Performed By: #### P RBC #### [facility] [address] [address] [address] Kayley Hatfield PLT 1076 103/ul Critically high 150-450 [facility] Comment on above: Performed By: #### P RBC #### [facility] [address] [address] [address] Kayley Hatfield RBC 3.91 106/ul Critically low 4.20-5.40 [facility] Comment on above: Performed By: #### P RBC #### [facility] [address] [address] [address] Kayley Hatfield WBC 16.8 103/ul Critically high 4.0-11.0 [facility] Comment on above: Performed By: #### P RBC #### [facility] [id number] Kayley Hatfield CT HEAD WO CONon [...] MIGUE REYNOSO Date: 2022-04-25 14:[address] [facility] CTA CHEST WO W CONon 022 CTA [...] MIGUE REYNOSO Date: 2022-04-25 15:[address] [facility] Covid-19 PCR (CVDTB)on 04-08 SARS-CoV-2 (COVID-19) RNA ELBA+probe Ql (Unsp spec) Not detected Normal NOT DETECTED [facility] Comment on above: Result Comment: When diagnostic [...] for this test is supported by the [place] of [employer] and Human Service's declaration that [...] used). Performed By: #### C VDTBH #### [facility] [address] [place] [address] Dr. Kayley DOBSON URINE PROFILEon 2 Bilirubin Ql (U) Negative Normal NEGATIVE [facility] Comment on above: Performed By: #### C VDTBH #### [facility] [address] [place] [address] Dr. Kayley Hatfield Clarity (U) CLEAR Normal CLEAR [facility] Comment on above: Performed By: #### C VDTBH #### [facility] [address] [place] [address] Dr. Kayley Hatfield Color (U) LT. YELLOW Normal YELLOW [facility] Comment on above: Performed By: #### C VDTBH #### [facility] [address] [place] [address] Dr. Kayley [place] A micrscopic examination will be performed if indicated. Normal [facility] Comment on above: Performed By: #### C VDTBH #### [facility] [address] [place] [address] Dr. Kayley Hatfield Glucose Ql (U) Negative Normal NEGATIVE [facility] Comment on above: Performed By: #### C VDTBH #### [facility] [address] [place] [address] Dr. Kayley Hatfield Hemoglobin Ql (U) TRACE-INTACT Abnormal NEGATIVE [facility] Comment on above: Performed By: #### C VDTBH #### [facility] [address] [place] [address] Dr. Kayley Hatfield Ketones Ql (U) Negative Normal NEGATIVE [facility] Comment on above: Performed By: #### C VDTBH #### [facility] [address] [place] [address] Dr. Kayley Hatfield LEUKOCYTES Negative Normal NEGATIVE [facility] Comment on above: Performed By: #### C VDTBH #### [facility] [address] [place] [address] Dr. Kayley Hatfield Nitrite Ql (U) Negative Normal NEGATIVE [facility] Comment on above: Performed By: #### C VDTBH #### [facility] [address] [place] [address] Dr. Kayley Hatfield pH (U) 8.0 [pH] Normal 5-9 [facility] Comment on above: Performed By: #### C VDTBH #### [facility] [address] [place] [address] Dr. Kayley Hatfield SPEC GRAVITY 1.010 Normal 1.005-<=1.025 [facility] Comment on above: Performed By: #### C VDTBH #### [facility] [address] [place] [address] Dr. Kayley Hatfield UA PROTEIN Negative Normal NEGATIVE/ TRACE [facility] Comment on above: Performed By: #### C VDTBH #### [facility] [address] [place] [address] Dr. Kayley Hatfield UR MICRO IND INDICATED Normal [facility] Comment on above: Performed By: #### C VDTBH #### [facility] [address] [place] [address] Dr. Kayley Hatfield Urobilinogen Qn (U) 0.2 {Lu'U}/dL Normal 0.2 - 1. 0 [facility] Comment on above: Performed By: #### C VDTBH #### [facility] [address] [place] [address] Dr. Kayley Hatfield LACTATE/LACTIC ACIDon 2021 Lactate [Moles/Vol] 1.1 mmol/L Normal 0.4-1.9 [facility] Comment on above: Performed By: #### P RTELEC #### [facility] [address] [place] [address] Dr. Kayley Hatfield PH VENOUS BLOODon 04-25-2022 PCO2 VENOUS 54.5 mmHg Critically high 40.0-52.0 [facility] Comment on above: Performed By: #### L DH #### [facility] [address] [place] [address] Dr. Kayley Hatfield pH VENOUS 7.385 Normal 7.330-7.430 [facility] Comment on above: Performed By: #### L DH #### [facility] [address] [address] [address] Kayley Hatfield POINT OF CARE GLUCOSEon 04-08 Glucose [Mass/Vol] 91 mg/dL Normal 74-106 [facility] Comment on above: Performed By: #### O BSCRN #### [facility] [address] [place] [address] Dr. Kayley Hatfiled Glucose [Mass/Vol] 116 mg/dL Critically high 74-106 [facility] Comment on above: Performed By: #### O BSCRN #### [facility] [address] [place] [address] Dr. Kayley Hatfield PROF 14(COMP METB)on 022 Albumin [Mass/Vol] 2.7 g/dL Critically low 3.4-5.0 [facility] Comment on above: Performed By: #### O BSCRN #### [facility] [address] [place] [address] Dr. Kayley Hatfield Albumin/Globulin [Mass ratio] 0.6 {ratio} Normal [facility] Comment on above: Performed By: #### O BSCRN #### [facility] [address] [place] [address] Dr. Kayley Hatfield ALP [Catalytic activity/Vol] 132 U/L Critically high 46-116 [facility] Comment on above: Performed By: #### O BSCRN #### [facility] [address] [place] [address] Dr. Kayley Hatfield ALT [Catalytic activity/Vol] 21 U/L Normal 14-59 [facility] Comment on above: Performed By: #### O BSCRN #### [facility] [address] [address] [address] Kayley Hatfield Anion gap [Moles/Vol] 8.1 mmol/L Normal [facility] Comment on above: Performed By: #### O BSCRN #### [facility] [address] [place] [address] Dr. Kayley Hatfield AST [Catalytic activity/Vol] 23 U/L Normal 15-37 [facility] Comment on above: Performed By: #### O BSCRN #### [facility] [address] [address] [address] Kayley Hatfield Bilirubin [Mass/Vol] 0.3 mg/dL Normal 0.2-1.0 [facility] Comment on above: Performed By: #### O BSCRN #### [facility] [address] [address] [address] Kayley Hatfield Calcium [Mass/Vol] 9.4 mg/dL Normal 8.5-10.1 [facility] Comment on above: Performed By: #### O BSCRN #### [facility] [address] [place] [address] Dr. Kayley Hatfield Chloride [Moles/Vol] 100 mmol/L Normal 98-107 [facility] Comment on above: Performed By: #### O BSCRN #### [facility] [address] [place] [address] Dr. Kayley Hatfield CO2 [Moles/Vol] 31.8 mmol/L Normal 21.0-32.0 [facility] Comment on above: Performed By: #### O BSCRN #### [facility] [address] [place] [address] Dr. Kayley Hatfield Creatinine [Mass/Vol] 0.79 mg/dL Normal 0.55-1.02 [facility] Comment on above: Performed By: #### O BSCRN #### [facility] [address] [place] [address] Dr. Kayley Hatfield EGFR-AF LAO >60 Normal >=60 [facility] Comment on above: Performed By: #### O BSCRN #### [facility] [address] [place] [address] Dr. Kayley Hatfield EGFR-NON AF LAO >60 Normal >=60 [facility] Comment on above: Performed By: #### O BSCRN #### [facility] [address] [place] [address] Dr. Kayley Hatfield Globulin (S) [Mass/Vol] 4.2 g/dL Normal [facility] Comment on above: Performed By: #### O BSCRN #### [facility] [address] [address] [address] Kayley Hatfield Glucose [Mass/Vol] 134 mg/dL Critically high 74-106 [facility] Comment on above: Performed By: #### O BSCRN #### [facility] [address] [address] [address] Kayley Hatfield Potassium [Moles/Vol] 3.9 mmol/L Normal 3.5-5.1 [facility] Comment on above: Performed By: #### O BSCRN #### [facility] [address] [address] [address] Kayley Hatfield Protein [Mass/Vol] 6.9 g/dL Normal 6.4-8.2 [facility] Comment on above: Performed By: #### O BSCRN #### [facility] [address] [address] [address] Kayley Hatfield Sodium [Moles/Vol] 136 mmol/L Normal 136-145 [facility] Comment on above: Performed By: #### O BSCRN #### [facility] [address] [address] [address] Kayley Hatfield Urea nitrogen [Mass/Vol] 10.0 mg/dL Normal 7.0-18.0 [facility] Comment on above: Performed By: #### O BSCRN #### [facility] [address] [address] [address] Kayley Hatfield Urea nitrogen/Creatinine [Mass ratio] 12.7 mg/mg Normal [facility] Comment on above: Performed By: #### O BSCRN #### [facility] [address] [address] [address] Kayley Hatfield PROTIMEon 04-25-2022 INR Coag (PPP) [Relative time] 1.08 {INR} [facility] Comment on above: Performed By: #### P RTELEC #### [facility] [address] [address] [address] Kayley Hatfield INR GUIDELINES SEE BELOW Normal [facility] Comment on above: Result Comment: JOAQUIM RED INR: 2.0 - 3.0 CONDITIONS NOT LISTED BELOW 2.5 - 3.5 FOR PROSTHETIC HEART VALVE REPLACEMENT 2.5 - 3.5 RECURRENT THROMBOSIS Performed By: #### P RTELEC #### [facility] [address] [place] [address] Dr. Kayley Hatfield PT Coag (PPP) [Time] 11.6 s Normal 9.0-11.6 [facility] Comment on above: Performed By: #### P RTELEC #### [facility] [address] [place] [address] Dr. Kayley Hatfield PTTon 04-25-2022 aPTT Coag (Bld) [Time] 31.1 s Normal 22.3-36.[address] [facility] Comment on above: Performed By: #### P RTELEC #### [facility] [address] [place] [address] Dr. Kayley Hatfield TROPONIN, HIGH SENSITIVITYon 04-25-2022 HSTROP 9.6 pg/mL Normal 4.0-51.[address] [facility] Comment on above: Result Comment: CUT- OFF POINTS HAVE BEEN ESTABLISHED BASED ON THE FOURTH UNIVERSAL DEFINITIONS OF MYOCARDIAL INFARCTION. THE UPPER REFERENCE LIMIT (URL) OF TROPONIN, DEFINED THE 99TH PERCENTILE OF cTnI DISTRIBUTION IN A REFERENCE POPULATION, HAS BEEN CONFIRMED THE DECISION THRESHOLD FOR [place] DIAGNOSIS. Performed By: #### P RTELEC #### [facility] [address] [place] [address] Dr. Kayley Hatfield TSHon 04-25-2022 TSH 1.431 uIU/mL Normal 0.358-3.740 [facility] Comment on above: Performed By: #### P RTELEC #### [facility] [address] [place] [address] Dr. Kayley Hatfield URINE MICROSCOPIC ONLYon BACTERIA NONE SEEN Normal NONE SEEN [facility] Comment on above: Performed By: #### C VDTBH #### [facility] [address] [place] [address] Dr. Kayley Hatfield Bacteria identified Cx Nom (U) NOT INDICATED Normal [facility] Comment on above: Performed By: #### C VDTBH #### [facility] [address] [place] [address] Dr. Kayley Hatfield CAST NONE SEEN Normal NONE SEEN [facility] Comment on above: Performed By: #### C VDTBH #### [facility] [address] [place] [address] Dr. Kayley Hatfield Crystals LM Nom (Urine sed) NONE SEEN Normal NONE SEEN [facility] Comment on above: Performed By: #### C VDTBH #### [facility] [address] [place] [address] Dr. Kayley Hatfield Epithelial cells LM Ql (Urine sed) FEW Abnormal NONE SEEN /RARE [facility] Comment on above: Performed By: #### C VDTBH #### [facility] [address] [place] [address] Dr. Kayley Hatfield MUCOUS NONE SEEN Normal NONE SEEN [facility] Comment on above: Performed By: #### C VDTBH #### [facility] [address] [place] [address] Dr. Kayley Hatfield RBC 2-5 Abnormal 0-2 [facility] Comment on above: Performed By: #### C VDTBH #### [facility] [address] [place] [address] Dr. Kayley Hatfield WBC NONE SEEN Normal NONE SEEN [facility] Comment on above: Performed By: #### C VDTBH #### [facility] [address] [place] [address] Dr. Kayley Hatfield IMMUNOFIXATION(KENNETH),PROTEIN ELEC(PE),[facility] 03-31-2022 Albumin [Mass/Vol] 3.6 g/dL Normal 2.9-4.4 [facility] Comment on above: Performed By: #### B LDCX1 #### [facility] [address] [place] [address] Dr. Kayley Hatfield Albumin/Globulin [Mass ratio] 1.6 {ratio} Normal 0.7-1.7 [facility] Comment on above: Performed By: #### B LDCX1 #### [facility] [address] [place] [address] Dr. Kayley Hatfield Ymnuh-8-Uwautdwk 0.3 g/dL Normal 0.0-0.4 [facility] Comment on above: Performed By: #### B LDCX1 #### [facility] [address] [address] [address] Kayley Hatfield Scwxs-3-Cskqbugi 0.8 g/dL Normal 0.4-1.0 [facility] Comment on above: Performed By: #### B LDCX1 #### [facility] [address] [address] [address] Kayley Hatfield Beta Globulin 1.0 g/dL Normal 0.7-1.3 [facility] Comment on above: Performed By: #### B LDCX1 #### [facility] [address] [place] [address] Dr. Kayley Hatfield Free [place] Lt Chains,S 16.0 mg/L Normal 3.3-19.[address] [facility] Comment on above: Performed By: #### B LDCX1 #### [facility] [address] [place] [address] Dr. Kayley Hatfield Free Lambda Lt Chains,S 10.1 mg/L Normal 5.7-26.[address] [facility] Comment on above: Performed By: #### B LDCX1 #### [facility] [address] [place] [address] Dr. Kayley Hatfield Gamma Globulin 0.4 g/dL Normal 0.4-1.8 [facility] Comment on above: Performed By: #### B LDCX1 #### [facility] [address] [place] [address] Dr. Kayley Hatfield Globulin (S) [Mass/Vol] 2.4 g/dL Normal 2.2-3.[address] [facility] Comment on above: Performed By: #### B LDCX1 #### [facility] [address] [place] [address] Dr. Kayley Hatfield Immunofixation Result, Serum Comment Normal [facility] Comment on above: Result Comment: No m onoclonality detected. Performed By: #### B LDCX1 #### [facility] [address] [address] [address] Kayley Hatfield Immunoglobulin A, Qn, Serum 128 mg/dL Normal 87-352 [facility] Comment on above: Performed By: #### B LDCX1 #### [facility] [address] [address] [address] Kayley Hatfield Immunoglobulin G, Qn, Serum 487 mg/dL Critically low 586-1602 [facility] Comment on above: Performed By: #### B LDCX1 #### [facility] [address] [address] [address] Kayley Hatfield Immunoglobulin M, Qn, Serum 38 mg/dL Normal 26-217 [facility] Comment on above: Performed By: #### B LDCX1 #### [facility] [address] [place] [address] Dr. Kayley Hatfield [place]/Lambda Ratio, S 1.58 Normal 0.26-1.65 [facility] Comment on above: Performed By: #### B LDCX1 #### [facility] [address] [place] [address] Dr. Kayley Hatfield M-Sandip Not Observed Normal Not Observed [facility] Comment on above: Performed By: #### B LDCX1 #### [facility] [address] [place] [address] Dr. Kayley Hatfield PDF . Normal [facility] Comment on above: Performed By: #### B LDCX1 #### [facility] [address] [place] [address] Dr. Kayley Hatfield Please note: Comment Normal [facility] Comment on above: Result Comment: Prot ein electrophoresis scan will follow via computer, mail, or certified phlebotomy technician delivery. Performed By: #### B LDCX1 #### [facility] [address] [place] [address] Dr. Kayley Hatfield Protein [Mass/Vol] 6.0 g/dL Normal 6.0-8.5 [facility] Comment on above: Performed By: #### B LDCX1 #### [facility] [address] [place] [address] Dr. Kayley Hatfield CBC AUTO DIFFon 03-30-2022 BASO # 0.1 103/ul Normal 0.0-0.1 [facility] Comment on above: Performed By: #### P RBC #### [facility] [address] [address] [address] Kayley Hatfield Basophils/100 WBC (Bld) 0.4 % Normal 0.2-2.0 [facility] Comment on above: Performed By: #### P RBC #### [facility] [address] [address] [address] Kayley Hatfield EO # 0.2 103/ul Normal 0.0-0.[address] [facility] Comment on above: Performed By: #### P RBC #### [facility] [address] [address] [address] Kayley Hatfield Eosinophils/100 WBC (Bld) 1.1 % Normal 0.9-7.0 [facility] Comment on above: Performed By: #### P RBC #### [facility] [address] [address] [address] Kayley Hatfield Erythrocyte distribution width (RBC) [Ratio] 0.0 % Critically low 11.0-15.0 [facility] Comment on above: Performed By: #### P RBC #### [facility] [address] [address] [address] Kayley Hatfield Hematocrit (Bld) [Volume fraction] 24.0 % Critically low 36.0-48.0 [facility] Comment on above: Performed By: #### P RBC #### [facility] [address] [address] [address] Kayley Hatfield Hemoglobin (Bld) [Mass/Vol] 7.2 g/dL Critically low 12.0-16.[address] [facility] Comment on above: Performed By: #### P RBC #### [facility] [address] [address] [address] Kayley Hatfield IG # 0.10 10e3/ul Critically high 0.00-0.03 [facility] Comment on above: Performed By: #### P RBC #### [facility] [address] [address] [address] Kayley Hatfield IG % 0.6 % Critically high 0.0-0.5 [facility] Comment on above: Performed By: #### P RBC #### [facility] [address] [address] [address] Kalyey Hatfield LYMPH # 1.5 103/ul Normal 1.2-3.[address] [facility] Comment on above: Performed By: #### P RBC #### [facility] [address] [place] [address] Dr. Kayley Hatfield Lymphocytes/100 WBC (Bld) 9.0 % Critically low 20.5-60.[address] [facility] Comment on above: Performed By: #### P RBC #### [facility] [facility] [address] [place] [address] Dr. Kayley Hatfield MANUAL DIFF REQ NO Normal [facility] Comment on above: Performed By: #### P RBC #### [facility] [address] [address] [address] Kayley Hatfield MCH (RBC) [Entitic mass] 27.3 pg Normal 26.7-34.[address] [facility] Comment on above: Performed By: #### P RBC #### [facility] [address] [place] [address] Dr. Kayley Hatfield MCHC (RBC) [Mass/Vol] 30.0 g/dL Normal 29.9-35.[address] [facility] Comment on above: Performed By: #### P RBC #### [facility] [address] [place] [address] Dr. Kayley Hatfield MCV (RBC) [Entitic vol] 90.9 fL Normal 81.0-99.[address] [facility] Comment on above: Performed By: #### P RBC #### [facility] [address] [place] [address] Dr. Kayley Hatfield MONO # 2.3 103/ul Critically high 0.3-0.8 [facility] Comment on above: Performed By: #### P RBC #### [facility] [address] [place] [address] Dr. Kayley Hatfield Monocytes/100 WBC (Bld) 13.8 % Critically high 1.7-12.[address] [facility] Comment on above: Performed By: #### P RBC #### [facility] [address] [address] [address] Kayley Hatfield NEUT # 12.7 103/ul Critically high 1.4-6.5 [facility] Comment on above: Performed By: #### P RBC #### [facility] [address] [address] [address] Kayley Hatfield Neutrophils/100 WBC (Bld) 75.1 % Critically high 43.0-75.[address] [facility] Comment on above: Performed By: #### P RBC #### [facility] [address] [place] [address] Dr. Kayley Hatfield Platelet mean volume (Bld) [Entitic vol] 8.9 fL Critically low 9.5-13.[address] [facility] Comment on above: Performed By: #### P RBC #### [facility] [address] [address] [address] Kayley Hatfield PLT 782 103/ul Critically high 150-450 [facility] Comment on above: Performed By: #### P RBC #### [facility] [address] [place] [address] Dr. Kayley Hatfield RBC 2.64 106/ul Critically low 4.20-5.40 [facility] Comment on above: Performed By: #### P RBC #### [facility] [address] [address] [address] Kayley Hatfield WBC 16.9 103/ul Critically high 4.0-11.0 [facility] Comment on above: Performed By: #### P RBC #### [facility] [address] [place] [address] Dr. Kayley Hatfield PRBC LEUKOREDUCEDon 03-30-20 ABO and Rh group Nom (Bld) Cross Match Result Compatible Unit Blood Type O Pos Unit Number [id number] Status Information Transfused Product ID Red Blood Cells Product Code [id number] Cross Match Result Compatible Unit Blood Type O Pos Unit Number [id number] Status Information Transfused Product ID Red Blood Cells Product Code [id number] Normal [facility] Comment on above: Performed By: #### P RBC #### [facility] [address] [place] [address] Dr. Kayley Hatfield PROF CHEM 8 (BAS METB)on Anion gap [Moles/Vol] 6.9 mmol/L Normal [facility] Comment on above: Performed By: #### P RBC #### [facility] [address] [place] [address] Dr. Kayley Hatfield Calcium [Mass/Vol] 8.7 mg/dL Normal 8.5-10.1 [facility] Comment on above: Performed By: #### P RBC #### [facility] [address] [place] [address] Dr. Kayley Hatfield Chloride [Moles/Vol] 101 mmol/L Normal 98-107 [facility] Comment on above: Performed By: #### P RBC #### [facility] [address] [place] [address] Dr. Kayley Hatfield CO2 [Moles/Vol] 33.3 mmol/L Critically high 21.0-32.0 [facility] Comment on above: Performed By: #### P RBC #### [facility] [address] [place] [address] Dr. Kayley Hatfield Creatinine [Mass/Vol] 0.83 mg/dL Normal 0.55-1.02 [facility] Comment on above: Performed By: #### P RBC #### [facility] [address] [place] [address] Dr. Kayley Hatfield EGFR-AF LAO >60 Normal >=60 [facility] Comment on above: Performed By: #### P RBC #### [facility] [address] [place] [address] Dr. Kayley aHtfield EGFR-NON AF LAO >60 Normal >=60 [facility] Comment on above: Performed By: #### P RBC #### [facility] [address] [place] [address] Dr. Kayley Hatfield Glucose [Mass/Vol] 94 mg/dL Normal 74-106 [facility] Comment on above: Performed By: #### P RBC #### [facility] [address] [place] [address] Dr. Kayley Hatfield Potassium [Moles/Vol] 4.2 mmol/L Normal 3.5-5.1 [facility] Comment on above: Performed By: #### P RBC #### [facility] [address] [place] [address] Dr. Kayley Hatfield Sodium [Moles/Vol] 137 mmol/L Normal 136-145 [facility] Comment on above: Performed By: #### P RBC #### [facility] [address] [place] [address] Dr. Kayley Hatfield Urea nitrogen [Mass/Vol] 15.0 mg/dL Normal 7.0-18.0 [facility] Comment on above: Performed By: #### P RBC #### [facility] [address] [place] [address] Dr. Kayley Hatfield Urea nitrogen/Creatinine [Mass ratio] 18.1 mg/mg Normal [facility] Comment on above: Performed By: #### P RBC #### [facility] [address] [place] [address] Dr. Kayley Hatfield PROTEIN ELECTROPHERESISon Albumin [Mass/Vol] 3.4 g/dL Normal 2.9-4.4 [facility] Comment on above: Performed By: #### P RTELEC #### [facility] [address] [place] [address] Dr. Kayley Hatfield Albumin/Globulin [Mass ratio] 1.3 {ratio} Normal 0.7-1.[address] [facility] Comment on above: Performed By: #### P RTELEC #### [facility] [address] [place] [address] Dr. Kyaley Hatfield Iainc-0-Bhdyfskw 0.3 g/dL Normal 0.0-0.4 [facility] Comment on above: Performed By: #### P RTELEC #### [facility] [address] [place] [address] Dr. Kayley Hatfield Axnky-1-Lfbnjzad 0.8 g/dL Normal 0.4-1.0 [facility] Comment on above: Performed By: #### P RTELEC #### [facility] [address] [place] [address] Dr. Kayley Hatfield Beta Globulin 1.0 g/dL Normal 0.7-1.3 [facility] Comment on above: Performed By: #### P RTELEC #### [facility] [address] [place] [address] Dr. Kayley Hatfield Gamma Globulin 0.5 g/dL Normal 0.4-1.8 [facility] Comment on above: Performed By: #### P RTELEC #### [facility] [address] [place] [address] Dr. Kayley Hatfield Globulin (S) [Mass/Vol] 2.6 g/dL Normal 2.2-3.9 [facility] Comment on above: Performed By: #### P RTELEC #### [facility] [address] [place] [address] Dr. Kayley Hatfield M-Sandip Not Observed Normal Not Observed [facility] Comment on above: Performed By: #### P RTELEC #### [facility] [address] [place] [address] Dr. Kayley Hatfield PDF . Normal [facility] Comment on above: Performed By: #### P RTELEC #### [facility] [address] [place] [address] Dr. Kayley Hatfield Please note: Comment Normal [facility] Comment on above: Result Comment: Prot ein electrophoresis scan will follow via computer, mail, or certified phlebotomy technician delivery. Performed By: #### P RTELEC #### [facility] [address] [place] [address] Dr. Kayley Hatfield Protein [Mass/Vol] 6.0 g/dL Normal 6.0-8.5 [facility] Comment on above: Performed By: #### P RTELEC #### [facility] [address] [place] [address] Dr. Kayley Hatfield XR CHEST 1 Von [...] TYSHAWN MOORE Date: 2022-03-30 06:[address] [facility] CBC W MANUAL DIFFon 03-29-20 22 ANISOCYTOSIS 2+ Normal [facility] Comment on above: Performed By: #### C VDTBH #### [facility] [address] [place] [address] Dr. Kayley Hatfield ATYPICAL LYMPH # Normal [facility] Comment on above: Performed By: #### C VDTBH #### [facility] [address] [place] [address] Dr. Kayley Hatfield ATYPICAL LYMPH % Normal [facility] Comment on above: Performed By: #### C VDTBH #### [facility] [address] [place] [address] Dr. Kayley Hatfield BAND # 0.0 103/ul Normal 0.0-0.[address] [facility] Comment on above: Performed By: #### C VDTBH #### [facility] [address] [place] [address] Dr. Kayley Hatfield BAND % 0 % Normal 0-[address] [facility] Comment on above: Performed By: #### C VDTBH #### [facility] [address] [place] [address] Dr. Kayley Hatfield BASOM # 0.59 103/ul Critically high 0.00-0.10 [facility] Comment on above: Performed By: #### C VDTBH #### [facility] [address] [place] [address] Dr. Kayley Hatfield BASOM % 3.0 % Critically high 0.2-2.0 [facility] Comment on above: Performed By: #### C VDTBH #### [facility] [address] [place] [address] Dr. Kayley Hatfield BLAST # Normal [facility] Comment on above: Performed By: #### C VDTBH #### [facility] [address] [place] [address] Dr. Kayley Hatfield BLAST % Normal [facility] Comment on above: Performed By: #### C VDTBH #### [facility] [address] [place] [address] Dr. Kayley Hatfield CORRECTED WBC Normal 4.0-11.0 [facility] Comment on above: Performed By: #### C VDTBH #### [facility] [address] [place] [address] Dr. Kayley Hatfield EOS # 0.40 103/ul Normal 0.00-0.70 [facility] Comment on above: Performed By: #### C VDTBH #### [facility] [address] [place] [address] Dr. Kayley Hatfield EOS% 2.0 % Normal 0.9-7.[address] [facility] Comment on above: Performed By: #### C VDTBH #### [facility] [address] [place] [address] Dr. Kayley Hatfield HCT 31.1 % Critically low 36.0-48.0 [facility] Comment on above: Performed By: #### C VDTBH #### [facility] [address] [place] [address] Dr. Kayley Hatfield HGB 9.7 g/dl Critically low 12.0-16.0 [facility] Comment on above: Performed By: #### C VDTBH #### [facility] [address] [place] [address] Dr. Kayley Hatfield HYPOCHROMASIA 1+ Normal [facility] Comment on above: Performed By: #### C VDTBH #### [facility] [address] [place] [address] Dr. Kayley Hatfield LYMPHM # 4.75 103/ul Critically high 1.20-3.80 [facility] Comment on above: Performed By: #### C VDTBH #### [facility] [address] [place] [address] Dr. Kayley Hatfield LYMPHM% 24.0 % Normal 20.5-60.0 [facility] Comment on above: Performed By: #### C VDTBH #### [facility] [address] [place] [address] Dr. Kayley Hatfield MCH 27.0 pg Normal 26.7-34.0 [facility] Comment on above: Performed By: #### C VDTBH #### [facility] [address] [place] [address] Dr. Kayley Hatfield MCHC 31.2 g/dl Normal 29.9-35.2 [facility] Comment on above: Performed By: #### C VDTBH #### [facility] [address] [place] [address] Dr. Kayley Hatfield MCV 86.6 fL Normal 81.0-99.0 [facility] Comment on above: Performed By: #### C VDTBH #### [facility] [address] [place] [address] Dr. Kayley Hatfield METAMYELOCYTE # Normal [facility] Comment on above: Performed By: #### C VDTBH #### [facility] [address] [place] [address] Dr. Kayley Hatfield METAMYELOCYTE % Normal [facility] Comment on above: Performed By: #### C VDTBH #### [facility] [address] [place] [address] Dr. Kayley Hatfield MONOM# 0.59 103/ul Normal 0.30-0.80 [facility] Comment on above: Performed By: #### C VDTBH #### [facility] [address] [address] [address] Kayley Hatfield MONOM% 3.0 % Normal 1.7-12.0 [facility] Comment on above: Performed By: #### C VDTBH #### [facility] [address] [address] [address] Kayley Hatfield MPV 8.4 fL Critically low 9.5-13.5 [facility] Comment on above: Performed By: #### C VDTBH #### [facility] [address] [place] [address] Dr. Kayley Hatfield MYELOCYTE # Normal [facility] Comment on above: Performed By: #### C VDTBH #### [facility] [address] [place] [address] Dr. Kayley Hatfield MYELOCYTE % Normal [facility] Comment on above: Performed By: #### C VDTBH #### [facility] [address] [place] [address] Dr. Kayley Hatfield NRBC Normal [facility] Comment on above: Performed By: #### C VDTBH #### [facility] [address] [address] [address] Kayley Hatfield OVALOCYTES SLIGHT Normal [facility] Comment on above: Performed By: #### C VDTBH #### [facility] [address] [place] [address] Dr. Kayley Hatfield PLT 950 103/ul Critically high 150-450 [facility] Comment on above: Performed By: #### C VDTBH #### [facility] [address] [place] [address] Dr. Kayley Hatfield RBC 3.59 106/ul Critically low 4.20-5.40 [facility] Comment on above: Performed By: #### C VDTBH #### [facility] [address] [place] [address] Dr. Kayley Hatfield RDW 26.6 % Critically high 11.0-15.0 [facility] Comment on above: Performed By: #### C VDTBH #### [facility] [address] [address] [address] Kayley Hatfield SEG # 13.46 103/ul Critically high 1.40-6.50 [facility] Comment on above: Performed By: #### C VDTBH #### [facility] [address] [place] [address] Dr. Kayley Hatfield SEG % 68.0 % Normal 43.0-75.0 [facility] Comment on above: Performed By: #### C VDTBH #### [facility] [address] [address] [address] Kayley Hatfield WBC 19.8 103/ul Critically high 4.0-11.0 [facility] Comment on above: Performed By: #### C VDTBH #### [facility] [address] [place] [address] Dr. Kayley Hatfield PROF CHEM 8 (BAS METB)on Anion gap [Moles/Vol] 8.6 mmol/L Normal [facility] Comment on above: Performed By: #### L #### [facility] [address] [place] [address] Dr. Kayley Hatfield Calcium [Mass/Vol] 8.9 mg/dL Normal 8.5-10.1 [facility] Comment on above: Performed By: #### L #### [facility] [address] [place] [address] Dr. Kayley Hatfield Chloride [Moles/Vol] 102 mmol/L Normal 98-[address] [facility] Comment on above: Performed By: #### L DH #### [facility] [address] [place] [address] Dr. Kayley Hatfield CO2 [Moles/Vol] 34.3 mmol/L Critically high 21.0-32.[address] [facility] Comment on above: Performed By: #### L DH #### [facility] [address] [place] [address] Dr. Kayley Hatfield Creatinine [Mass/Vol] 0.86 mg/dL Normal 0.55-1.02 [facility] Comment on above: Performed By: #### L DH #### [facility] [address] [address] [address] Kayley Hatfield EGFR-AF LAO >60 Normal >=60 [facility] Comment on above: Performed By: #### L DH #### [facility] [address] [place] [address] Dr. Kayley Hatfield EGFR-NON AF LAO >60 Normal >=60 [facility] Comment on above: Performed By: #### L DH #### [facility] [address] [address] [address] Kayley Hatfield Glucose [Mass/Vol] 102 mg/dL Normal 74-106 [facility] Comment on above: Performed By: #### L DH #### [facility] [address] [place] [address] Dr. Kayley Hatfield Potassium [Moles/Vol] 3.9 mmol/L Normal 3.5-5.1 [facility] Comment on above: Performed By: #### L DH #### [facility] [address] [place] [address] Dr. Kayley Hatfield Sodium [Moles/Vol] 141 mmol/L Normal 136-145 [facility] Comment on above: Performed By: #### L DH #### [facility] [address] [place] [address] Dr. Kayley Hatfield Urea nitrogen [Mass/Vol] 20.0 mg/dL Critically high 7.0-18.0 [facility] Comment on above: Performed By: #### L DH #### [facility] [address] [place] [address] Dr. Kayley Hatfield Urea nitrogen/Creatinine [Mass ratio] 23.3 mg/mg Normal [facility] Comment on above: Performed By: #### L DH #### [facility] [address] [place] [address] Dr. Kayley Hatfield XR CHEST 1 Von [...] MIGUE REYNOSO Date: 2022-03-29 13:[address] [facility] XR CHEST 1 V EXAMINATION: XR [...] MIGUE REYNOSO Date: 2022-03-29 11:[address] [facility] XR CHEST 1 V EXAMINATION: XR [...] side chest tube. Electronically authenticated by: MIGUE ANGELES Date: 2022-03-29 07:[address] [facility] XR CHEST 1 V EXAM: XR CHEST [...] ASAEL ANAND Date: 2022-03-28 22:[address] [facility] CBC W MANUAL DIFFon 03-28-20 22 ANISOCYTOSIS 3+ Normal [facility] Comment on above: Performed By: #### C ALONZO #### [facility] [address] [place] [address] Dr. Kayley Hatfield ATYPICAL LYMPH # Normal [facility] Comment on above: Performed By: #### C BCKATHY #### [facility] [address] [place] [address] Dr. Kayley Hatfield ATYPICAL LYMPH % Normal [facility] Comment on above: Performed By: #### C BCKATHY #### [facility] [address] [place] [address] Dr. Kayley Hatfield BAND # 0.3 103/ul Normal 0.0-0.[address] [facility] Comment on above: Performed By: #### C BCKATHY #### [facility] [address] [place] [address] Dr. Kayley Hatfield BAND % 2 % Normal 0-[address] [facility] Comment on above: Performed By: #### C BCMAN #### [facility] [address] [place] [address] Dr. Kayley Hatfield BASOM # 0.00 103/ul Normal 0.00-0.[address] [facility] Comment on above: Performed By: #### C BCMAN #### [facility] [address] [place] [address] Dr. Kayley Hatfield BASOM % 0.0 % Critically low 0.2-2.0 [facility] Comment on above: Performed By: #### C BCKATHY #### [facility] [address] [place] [address] Dr. Kayley Hatfield BLAST # Normal [facility] Comment on above: Performed By: #### C ALONZO #### [facility] [address] [place] [address] Dr. Kayley Hatfield BLAST % Normal [facility] Comment on above: Performed By: #### C ALONZO #### [facility] [address] [address] [address] Kayley Hatfield CORRECTED WBC Normal 4.0-11.0 [facility] Comment on above: Performed By: #### C ALONZO #### [facility] [address] [place] [address] Dr. Kayley Hatfield EOS # 0.00 103/ul Normal 0.00-0.70 [facility] Comment on above: Performed By: #### C ALONZO #### [facility] [address] [place] [address] Dr. Kayley Hatfield EOS% 0.0 % Critically low 0.9-7.0 [facility] Comment on above: Performed By: #### C ALONZO #### [facility] [address] [place] [address] Dr. Kayley Hatfield HCT 23.6 % Critically low 36.0-48.0 [facility] Comment on above: Performed By: #### C ALONZO #### [facility] [address] [place] [address] Dr. Kayley Hatfield HGB 6.8 g/dl Critically low 12.0-16.0 [facility] Comment on above: Performed By: #### C ALONZO #### [facility] [facility] [address] [place] [address] Dr. Kayley Hatfield HYPOCHROMASIA 3+ Normal [facility] Comment on above: Performed By: #### C ALONZO #### [facility] [address] [place] [address] Dr. Kayley Hatfield LYMPHM # 1.17 103/ul Critically low 1.20-3.80 [facility] Comment on above: Performed By: #### C ALONZO #### [facility] [address] [address] [address] Kayley Hatfield LYMPHM% 7.0 % Critically low 20.5-60.0 [facility] Comment on above: Performed By: #### C ALONZO #### [facility] [address] [address] [address] Kayley Hatfield MCH 24.6 pg Critically low 26.7-34.0 [facility] Comment on above: Performed By: #### C ALONZO #### [facility] [address] [place] [address] Dr. Kayley Hatfield MCHC 28.8 g/dl Critically low 29.9-35.2 [facility] Comment on above: Performed By: #### C ALONZO #### [facility] [address] [place] [address] Dr. Kayley Hatfield MCV 85.5 fL Normal 81.0-99.0 [facility] Comment on above: Performed By: #### C ALONZO #### [facility] [address] [place] [address] Dr. Kayley Hatfield METAMYELOCYTE # Normal [facility] Comment on above: Performed By: #### C ALONZO #### [facility] [address] [place] [address] Dr. Kayley Hatfield METAMYELOCYTE % Normal [facility] Comment on above: Performed By: #### C ALONZO #### [facility] [address] [place] [address] Dr. Kayley Hatfield MONOM# 0.50 103/ul Normal 0.30-0.80 [facility] Comment on above: Performed By: #### C ALONZO #### [facility] [address] [place] [address] Dr. Kayley Hatfield MONOM% 3.0 % Normal 1.7-12.0 [facility] Comment on above: Performed By: #### C ALONZO #### [facility] [address] [place] [address] Dr. Kayley Hatfield MPV 8.6 fL Critically low 9.5-13.5 [facility] Comment on above: Performed By: #### C BCMAN #### [facility] [address] [place] [address] Dr. Kayley Hatfield MYELOCYTE # Normal [facility] Comment on above: Performed By: #### C BCMAN #### [facility] [address] [address] [address] Kayley Hatfield MYELOCYTE % Normal [facility] Comment on above: Performed By: #### C BCMAN #### [facility] [address] [address] [address] Kayley Hatfield NRBC Normal [facility] Comment on above: Performed By: #### C ALONZO #### [facility] [address] [place] [address] Dr. Kayley Hatfield OVALOCYTES SLIGHT Normal [facility] Comment on above: Performed By: #### C ALONZO #### [facility] [address] [address] [address] Kayley Hatfield PLT 1384 103/ul Critically high 150-450 [facility] Comment on above: Performed By: #### C ALONZO #### [facility] [address] [address] [address] Kayley Hatfield RBC 2.76 106/ul Critically low 4.20-5.40 [facility] Comment on above: Performed By: #### C ALONZO #### [facility] [address] [address] [address] Kayley Hatfield RDW 0.0 % Critically low 11.0-15.0 [facility] Comment on above: Performed By: #### C BCMAN #### [facility] [address] [address] [address] Kayley Hatfield SEG # 14.70 103/ul Critically high 1.40-6.50 [facility] Comment on above: Performed By: #### C ALONZO #### [facility] [address] [address] [address] Kayley Hatfield SEG % 88.0 % Critically high 43.0-75.0 [facility] Comment on above: Performed By: #### C BCMAN #### [facility] [address] [address] [address] Kayley Hatfield WBC 16.7 103/ul Critically high 4.0-11.0 [facility] Comment on above: Performed By: #### C BCMAN #### [facility] [address] [address] [address] Kayley Hatfield CRPon 03-28-2022 CRP [Mass/Vol] mg/L Normal <=1.0 [facility] Comment on above: Performed By: #### H GBHCT #### [facility] [address] [place] [address] Dr. Kayley Hatfield [facility]10 SARS-CoV-2 (COVID-19) RNA ELBA+probe Ql (Unsp spec) Not detected Normal NOT DETECTED [facility] Comment on above: Result Comment: When diagnostic [...] for this test is supported by the [place] of [employer] and Human Service's declaration that [...] used). Performed By: #### P RBC #### [facility] [address] [place] [address] Dr. Kayley Hatfield ER URINE PROFILEon Bilirubin Ql (U) Negative Normal NEGATIVE [facility] Comment on above: Performed By: #### P RBC #### [facility] [address] [address] [address] Kayley Hatfield Clarity (U) CLEAR Normal CLEAR [facility] Comment on above: Performed By: #### P RBC #### [facility] [address] [place] [address] Dr. Kayley Hatfield Color (U) LT. YELLOW Normal YELLOW [facility] Comment on above: Performed By: #### P RBC #### [facility] [address] [place] [address] Dr. Kayley Hatfield ERUAHBetsey A micrscopic examination will be performed if indicated. Normal [facility] Comment on above: Performed By: #### P RBC #### [facility] [address] [place] [address] Dr. Kayley Hatfield Glucose Ql (U) Negative Normal NEGATIVE [facility] Comment on above: Performed By: #### P RBC #### [facility] [address] [place] [address] Dr. Kayley Hatfield Hemoglobin Ql (U) Negative Normal NEGATIVE [facility] Comment on above: Performed By: #### P RBC #### [facility] [address] [place] [address] Dr. Kayley Hatfield Ketones Ql (U) Negative Normal NEGATIVE [facility] Comment on above: Performed By: #### P RBC #### [facility] [address] [place] [address] Dr. Kayley Hatfield LEUKOCYTES Negative Normal NEGATIVE [facility] Comment on above: Performed By: #### P RBC #### [facility] [address] [place] [address] Dr. Kayley Hatfield Nitrite Ql (U) Negative Normal NEGATIVE [facility] Comment on above: Performed By: #### P RBC #### [facility] [address] [place] [address] Dr. Kayley Hatfield pH (U) 6.0 [pH] Normal 5-[address] [facility] Comment on above: Performed By: #### P RBC #### [facility] [address] [place] [address] Dr. Kayley Hatfield SPEC GRAVITY <=1.005 Abnormal 1.005-<=1.025 [facility] Comment on above: Performed By: #### P RBC #### [facility] [address] [address] [address] Kayley Hatfield UA PROTEIN Negative Normal NEGATIVE/ TRACE [facility] Comment on above: Performed By: #### P RBC #### [facility] [address] [place] [address] Dr. Kayley Hatfield UR MICRO IND NOT INDICATED Normal [facility] Comment on above: Performed By: #### P RBC #### [facility] [address] [place] [address] Dr. Kayley Hatfield Urobilinogen Qn (U) 0.2 {Lu'U}/dL Normal 0.2 - 1. 0 [facility] Comment on above: Performed By: #### P RBC #### [facility] [address] [place] [address] Dr. Kayley Hatfield FERRITINon 03-28-2022 Ferritin [Mass/Vol] 61.0 ng/mL Normal 8.0-252.0 [facility] Comment on above: Performed By: #### P RBC #### [facility] [address] [place] [address] Dr. Kayley Hatfield GLYCOHEMOGLOBIN A1Con 2021 ADA RECOMMENDATION SEE BELOW Normal [facility] Comment on above: Result Comment: ADA RECOMMENDED LIMIT 4.0 - 6.0 ADA THERAPEUTIC TARGET < 7.0 ACTION SUGGESTED > 7.0 Performed By: #### P RBC #### [facility] [address] [place] [address] Dr. Kayley Hatfield Glucose [Mass/Vol] 114 mg/dL Normal [facility] Comment on above: Performed By: #### P RBC #### [facility] [address] [place] [address] Dr. Kayley Hatfield HbA1c (Bld) [Mass fraction] 5.6 % Normal 4.5-6.2 [facility] Comment on above: Performed By: #### P RBC #### [facility] [address] [place] [address] Dr. Kayley Hatfield IRONon 03-28-2022 Iron [Mass/Vol] 37.0 ug/dL Critically low 50.0-170.0 [facility] Comment on above: Performed By: #### P RBC #### [facility] [address] [address] [address] Kayley Hatfield LDHon 03-28-2022 LDH 174 U/L Normal 81-234 [facility] Comment on above: Performed By: #### L DH #### [facility] [address] [address] [address] Kayley Hatfield LIPID PROFILEon 03-28-2022 CHOL-HDL RATIO NORM SEE BELOW Normal [facility] Comment on above: Result Comment: 3.3 - 4.4 LOW RISK 4.4 - 7.1 AVERAGE RISK 7.1 - 11.0 MODERATE RISK >11.0 HIGH RISK Performed By: #### P RBC #### [facility] [address] [place] [address] Dr. Kayley Hatfield Cholesterol [Mass/Vol] 193 mg/dL Normal <=200 [facility] Comment on above: Performed By: #### P RBC #### [facility] [address] [address] [address] Kayley Hatfield Cholesterol in HDL [Mass/Vol] 95 mg/dL Critically high 40-60 [facility] Comment on above: Performed By: #### P RBC #### [facility] [address] [place] [address] Dr. Kayley Hatfield Cholesterol in LDL [Mass/Vol] 74.8 mg/dL Normal [facility] Comment on above: Performed By: #### P RBC #### [facility] [address] [address] [address] Kayley Hatfield Cholesterol.total/Cho lesterol in HDL [Mass ratio] 2.0 {ratio} Normal [facility] Comment on above: Performed By: #### P RBC #### [facility] [address] [address] [address] Kayley Hatfield HDL NORMAL > or = 60 mg/dl - LO W CARDIOVASCULAR RISK <40 mg/dl - HIGH CARDIOVASCULAR RISK Normal [facility] Comment on above: Performed By: #### P RBC #### [facility] [address] [address] [address] Kayley Hatfield LDL CALC NORMAL SEE BELOW Normal [facility] Comment on above: Result Comment: <100 mg/dl OPTIMAL 100 - 129 mg/dl NEAR OR ABOVE OPTIMAL 130 - 159 mg/dl BORDERLINE HIGH 160 - 189 mg/dl HIGH >190 mg/dl VERY HIGH Performed By: #### P RBC #### [facility] [address] [address] [address] Kayley Hatfield Triglyceride [Mass/Vol] 116 mg/dL Normal <=150 [facility] Comment on above: Performed By: #### P RBC #### [facility] [address] [place] [address] Dr. Kayley Hatfield VLDL CALC 23.2 mg/dL Normal [facility] Comment on above: Performed By: #### P RBC #### [facility] [address] [place] [address] Dr. Kayley Hatfield LIVER PROFILEon 03-28-2022 Albumin [Mass/Vol] 3.2 g/dL Critically low 3.4-5.0 [facility] Comment on above: Performed By: #### P RBC #### [facility] [address] [place] [address] Dr. Kayley Hatfield Albumin/Globulin [Mass ratio] 1.0 {ratio} Normal [facility] Comment on above: Performed By: #### P RBC #### [facility] [address] [place] [address] Dr. Kayley Hatfield ALP [Catalytic activity/Vol] 56 U/L Normal 46-116 [facility] Comment on above: Performed By: #### P RBC #### [facility] [address] [address] [address] Kayley Hatfield ALT [Catalytic activity/Vol] 32 U/L Normal 14-59 [facility] Comment on above: Performed By: #### P RBC #### [facility] [address] [place] [address] Dr. Kayley Hatfield AST [Catalytic activity/Vol] 18 U/L Normal 15-37 [facility] Comment on above: Performed By: #### P RBC #### [facility] [address] [address] [address] Kayley Hatfield BILI, CONJUGATED 0.1 mg/dL Normal 0.0-0.2 [facility] Comment on above: Performed By: #### P RBC #### [facility] [address] [place] [address] Dr. Kayley Hatfield Bilirubin [Mass/Vol] 0.2 mg/dL Normal 0.2-1.0 [facility] Comment on above: Performed By: #### P RBC #### [facility] [address] [place] [address] Dr. Kayley Hatfield Globulin (S) [Mass/Vol] 3.1 g/dL Normal [facility] Comment on above: Performed By: #### P RBC #### [facility] [address] [place] [address] Dr. Kayley Hatfield Protein [Mass/Vol] 6.3 g/dL Critically low 6.4-8.2 [facility] Comment on above: Performed By: #### P RBC #### [facility] [address] [place] [address] Dr. Kayley Hatfield MAGNESIUMon 03-28-2022 Magnesium [Mass/Vol] 1.8 mg/dL Normal 1.8-2.4 [facility] Comment on above: Performed By: #### H GBHCT #### [facility] [address] [place] [address] Dr. Kayley Hatfield PHOSPHORUSon 03-28-2022 Phosphate [Mass/Vol] 4.4 mg/dL Normal 2.6-4.7 [facility] Comment on above: Performed By: #### O BSCRN #### [facility] [address] [place] [address] Dr. Kayley Hatfield PROF CHEM 8 (BAS METB)on Anion gap [Moles/Vol] 10.1 mmol/L Normal [facility] Comment on above: Performed By: #### P RBC #### [facility] [address] [place] [address] Dr. Kayley Hatfield Calcium [Mass/Vol] 9.1 mg/dL Normal 8.5-10.1 [facility] Comment on above: Performed By: #### P RBC #### [facility] [address] [address] [address] Kayley Hatfield Chloride [Moles/Vol] 101 mmol/L Normal 98-107 [facility] Comment on above: Performed By: #### P RBC #### [facility] [address] [address] [address] Kayley Hatfield CO2 [Moles/Vol] 32.6 mmol/L Critically high 21.0-32.0 [facility] Comment on above: Performed By: #### P RBC #### [facility] [address] [place] [address] Dr. Kayley Hatfield Creatinine [Mass/Vol] 0.90 mg/dL Normal 0.55-1.02 [facility] Comment on above: Performed By: #### P RBC #### [facility] [address] [place] [address] Dr. Kayley Hatfield EGFR-AF LAO >60 Normal >=60 [facility] Comment on above: Performed By: #### P RBC #### [facility] [address] [place] [address] Dr. Kayley Hatfield EGFR-NON AF LAO >60 Normal >=60 [facility] Comment on above: Performed By: #### P RBC #### [facility] [address] [place] [address] Dr. Kayley Hatfield Glucose [Mass/Vol] 161 mg/dL Critically high 74-106 [facility] Comment on above: Performed By: #### P RBC #### [facility] [address] [address] [address] Kayley Hatfield Potassium [Moles/Vol] 4.7 mmol/L Normal 3.5-5.1 [facility] Comment on above: Performed By: #### P RBC #### [facility] [address] [place] [address] Dr. Kayley Hatfield Sodium [Moles/Vol] 139 mmol/L Normal 136-145 [facility] Comment on above: Performed By: #### P RBC #### [facility] [address] [place] [address] Dr. Kayley Hatfield Urea nitrogen [Mass/Vol] 15.0 mg/dL Normal 7.0-18.0 [facility] Comment on above: Performed By: #### P RBC #### [facility] [address] [place] [address] Dr. Kayley Hatfield Urea nitrogen/Creatinine [Mass ratio] 16.7 mg/mg Normal [facility] Comment on above: Performed By: #### P RBC #### [facility] [address] [place] [address] Dr. Kayley Hatfield RETICULOCYTEon 03-28-2022 RETIC 4.65 % Critically high 0.60-3.10 [facility] Comment on above: Performed By: #### L DH #### [facility] [address] [place] [address] Dr. Kayley Hatfield SED RATE WESTERGRENon 2021 SED RATE 12 mm/hr Normal <=30 [facility] Comment on above: Performed By: #### P RTELEC #### [facility] [address] [place] [address] Dr. Kayley Hatfield TSHon 03-28-2022 TSH 0.922 uIU/mL Normal 0.358-3.740 [facility] Comment on above: Performed By: #### P RBC #### [facility] [address] [place] [address] Dr. Kayley Hatfield TYPE AND SCREENon 03-28-2022 TYPE AND SCREEN Negative Normal [facility] Comment on above: Performed By: #### C VDTBH #### [facility] [address] [place] [address] Dr. Kayley Hatfield VIT B12 AND FOLATEon 022 Cobalamin (Vitamin B12) [Mass/Vol] 490.0 pg/mL Normal 193.0-986.0 [facility] Comment on above: Performed By: #### L DH #### [facility] [address] [place] [address] Dr. Kayley Hatfield FOLATE 14.00 ng/mL Normal 8.60-58.90 [facility] Comment on above: Performed By: #### L DH #### [facility] [address] [address] [address] Kayley Hatfield VITAMIN D 25 OHon 03-28-2022 VIT D 25-OH 41.5 ng/mL Normal [facility] Comment on above: Performed By: #### O BSCRN #### [facility] [address] [address] [address] Kayley Hatfield VIT D RANGES SEE BELOW Normal [facility] Comment on above: Result Comment: <20 ng/mL Vit D deficient 20 - <30 ng/mL Vit D insufficient 30 - 100 ng/mL Vit D sufficient >100 ng/mL Potential Toxicity Performed By: #### O BSCRN #### [facility] [address] [address] [address] Kayley Hatfield XR CHEST 1 Von [...] STEPHEN ARAIZA Date: 2022-03-28 21:[address] [facility] BASIC METABOLIC PANELon Calcium [Mass/Vol] 8.9 mg/dL Normal 8.6-10.[address] [facility] Comment on above: Order Comment: No: D o not add to previous draw Performed By: #### 3 5200, 37136, 19955, 99223 #### [facility] [address] [place] [address], [facility] Chloride [Moles/Vol] 97 mmol/L Low 98-[address] [facility] Comment on above: Order Comment: No: D o not add to previous draw Performed By: #### 3 5200, 29158, 31090, 43934 #### [facility] [address] [place] [address], [facility] CO2 [Moles/Vol] 35 mmol/L High 21-[address] [facility] Comment on above: Order Comment: No: D o not add to previous draw Performed By: #### 3 5200, 87192, 55918, 35455 #### [facility] [address] [place] [address], [facility] Creatinine [Mass/Vol] 0.65 mg/dL Normal 0.60-1.[address] [facility] Comment on above: Order Comment: No: D o not add to previous draw Performed By: #### 3 5200, 38202, 83957, 04110 #### [facility] [address] [place] [address], [facility] GFR/1.73 sq M.predicted among non-blacks MDRD (S/P/Bld) [Vol rate/Area] mL/min/{1.73_m2} Normal >[address] [facility] Comment on above: Order Comment: No: D o not add to previous draw Result Comment: [facility]'s estimated glomerular filtration rate (eGFR) will [...] of individuals. Performed By: #### 3 0, 11393, 63027, 37694 #### [facility] [address] [place] [id number], [place] Glucose [Mass/Vol] 161 mg/dL High 70-[address] [facility] Comment on above: Order Comment: No: D o not add to previous draw Performed By: #### 3 0, 80170, 60432, 39973 #### [facility] [address] [place] [address], [place] Potassium [Moles/Vol] 3.9 mmol/L Normal 3.5-5.[address] [facility] Comment on above: Order Comment: No: D o not add to previous draw Performed By: #### 3 0, , 58084, 16042 #### [facility] [address] [place] [id number], [facility] Sodium [Moles/Vol] 136 mmol/L Normal 136-[address] [facility] Comment on above: Order Comment: No: D o not add to previous draw Performed By: #### 3 0, 80804, 47111, 70831 #### [facility] [address] [place] [id number], [facility] Urea nitrogen [Mass/Vol] 16 mg/dL Normal 7-[address] [facility] Comment on above: Order Comment: No: D o not add to previous draw Performed By: #### 3 0, 49455, 25555, 29150 #### [facility] [address] [place] [id number], [facility] CBC COMPLETE BLOOD COUNTon 0 03-15-2022 Hematocrit (Bld) [Volume fraction] 28.2 % Low 36.0-45.[address] [facility] Comment on above: Order Comment: No: D o not add to previous draw Performed By: #### 3 0 #### [facility] [address] [place] [address], [facility] Hemoglobin (Bld) [Mass/Vol] 8.3 g/dL Low 12.0-15.[address] [facility] Comment on above: Order Comment: No: D o not add to previous draw Performed By: #### 3 5200 #### [facility] [address] [address] [place] [id number], [facility] MCH (RBC) [Entitic mass] 22.9 pg Low 27.0-33.[address] [facility] Comment on above: Order Comment: No: D o not add to previous draw Performed By: #### 3 5200 #### [facility] [address] [place] [address], [facility] MCHC (RBC) [Mass/Vol] 29.4 g/dL Low 32.0-35.[address] [facility] Comment on above: Order Comment: No: D o not add to previous draw Performed By: #### 3 5200 #### [facility] [address] [place] [address], [facility] MCV (RBC) [Entitic vol] 77.9 fL Low 82.0-98.[address] [facility] Comment on above: Order Comment: No: D o not add to previous draw Performed By: #### 3 5200 #### [facility] [address] [place] [address], [facility] Nucleated RBC/100 WBC (Bld) [Ratio] 0 % Normal 0-[address] [facility] Comment on above: Order Comment: No: D o not add to previous draw Performed By: #### 3 5200 #### [facility] [address] [place] [address], [facility] PLAT CNT 221 10*3/uL Normal 150-[address] [facility] Comment on above: Order Comment: No: D o not add to previous draw Performed By: #### 3 5200 #### [facility] [address] [place] [address], [place] RBC (Bld) [#/Vol] 3.62 10*6/uL Low 3.80-5.[address] [facility] Comment on above: Order Comment: No: D o not add to previous draw Performed By: #### 3 5200 #### [facility] [address] [place] [address], [place] RDW ---- Normal 11.5-15.[address] [facility] Comment on above: Order Comment: No: D o not add to previous draw Result Comment: Prev ious RDW was unable to be calculated Performed By: #### 3 5200 #### [facility] [address] [place] [address], [place] WBC (Bld) [#/Vol] 11.88 10*3/uL High 4.00-10.[address] [facility] Comment on above: Order Comment: No: D o not add to previous draw Performed By: #### 3 5200 #### [facility] [address] [place] [address], [place] POC GLUCOSE LABon 03-15-2022 Glucose [Mass/Vol] 109 mg/dL High 70-[address] [facility] Comment on above: Performed By: #### 8 5499 ####[facility] [place] [address], [place] POC GLUCOSE LABon 03-14-2022 Glucose [Mass/Vol] 278 mg/dL High 70-[address] [facility] Comment on above: Performed By: #### 8 5499 ####[facility] [place] [address], [place] Glucose [Mass/Vol] 195 mg/dL High 70-[address] [facility] Comment on above: Performed By: #### 8 5499 ####[facility] [place] [address], [place] Glucose [Mass/Vol] 114 mg/dL High 70-[address] [facility] Comment on above: Performed By: #### 8 5499 ####[facility] [place] [address], [facility] Glucose [Mass/Vol] 113 mg/dL High 70-[address] [facility] Comment on above: Performed By: #### 3 5200 #### [facility] [address] [place], [place] [id number] [place] [address] PORTABLE CHEST 1 VIEWon PORTABLE CHEST 1 VIEW [facility] Department of Radiology [address] [place] [id number] Patient Name: LISE CANALES : 1955 Sex: F Age: Race: White Pt. Location: [address] [place] [address] Patient Status: I Ordered Date: 03/14/2022 2:35:00 [...] chest. Electronically signed: Tyshawn Tapia. Transcribed by: [email or web address], User Resident: Electronically Signed by: TYSHAWN TAPIA @ 03/14/2022 03:[address] [facility] Comment on above: Order Comment: Check Chest Tube Position, S/P Chest tube DC'd PORTABLE CHEST 1 VIEW [facility] Department of Radiology [address] [place] [phone] Patient Name: LISE CANALES : 1955 Sex: F Age: Race: White Pt. Location: [address] [place] [address] Patient Status: I Ordered Date: 03/14/2022 6:50:00 [...] pneumothorax. Electronically signed: Tyshawn Tapia. Transcribed by: [email or web address], User Resident: Electronically Signed by: TYSHAWN TAPIA @ 03/14/2022 02:[address] [facility] Comment on above: Order Comment: Check Chest Tube Position, S/P Chest tube DC'd POC GLUCOSE LABon 03-13-2022 Glucose [Mass/Vol] 282 mg/dL High 70-100 [facility] Comment on above: Performed By: #### 8 5499 ####[facility] [place] [address], [facility] Glucose [Mass/Vol] 163 mg/dL High 70-100 [facility] Comment on above: Performed By: #### 8 5499 ####[facility] [place] [address], [facility] Glucose [Mass/Vol] 149 mg/dL High 70-100 [facility] Comment on above: Performed By: #### 3 5200 #### [facility] [address] [place] [address], [facility] Glucose [Mass/Vol] 149 mg/dL High 70-100 [facility] Comment on above: Performed By: #### 8 5499 ####[facility] PORTABLE CHEST 1 VIEWon PORTABLE CHEST 1 VIEW [facility] Department of Radiology [address] [place] [address] Patient Name: LISE CANALES : 1955 Sex: F Age: Race: White Pt. Location: [address] [place] [address] Patient Status: I Ordered Date: 03/13/2022 4:15:00 [...] morning Electronically signed: Avinash Mckay. Transcribed by: [email or web address], User Resident: Electronically Signed by: AVINASH MCKAY @ 03/13/2022 06:[address] [facility] Comment on above: Order Comment: Check Chest Tube Position, S/P Chest tube DC'd PORTABLE CHEST 1 VIEW [facility] Department of Radiology [address] [place] [phone] Patient Name: LISE CANALES : 1955 Sex: F Age: Race: White Pt. Location: [address] [place] [address] Patient Status: I Ordered Date: 03/13/2022 6:50:00 [...] congestion. Electronically signed: Tyshawn Tapia. Transcribed by: [email or web address], User Resident: Electronically Signed by: TYSHAWN TAPIA @ 03/13/2022 08:[address] [facility] Comment on above: Order Comment: Evalu ate for Aspiration POTASSIUM BLOODon 03-13-2022 Potassium [Moles/Vol] 4.5 mmol/L Normal 3.5-5.[address] [facility] Comment on above: Order Comment: No: D o not add to previous draw Performed By: #### 3 5200 #### [facility] [address] [place] [address], [facility] BASIC METABOLIC PANELon 09-0 Calcium [Mass/Vol] 9.4 mg/dL Normal 8.6-10.[address] [facility] Comment on above: Order Comment: Check Chest Tube Position, S/P Chest tube DC'd Performed By: #### 0 0071 ####[facility] [facility] [address], [facility] Chloride [Moles/Vol] 98 mmol/L Normal 98-[address] [facility] Comment on above: Order Comment: Check Chest Tube Position, S/P Chest tube DC'd Performed By: #### 0 0071 ####[facility] [place] [address], [facility] CO2 [Moles/Vol] 34 mmol/L High 21-[address] [facility] Comment on above: Order Comment: Check Chest Tube Position, S/P Chest tube DC'd Performed By: #### 0 0071 ####[facility] [place] [address], [facility] Creatinine [Mass/Vol] 0.56 mg/dL Low 0.60-1.[address] [facility] Comment on above: Order Comment: Check Chest Tube Position, S/P Chest tube DC'd Performed By: #### 0 0071 ####[facility] GFR/1.73 sq M.predicted among non-blacks MDRD (S/P/Bld) [Vol rate/Area] mL/min/{1.73_m2} Normal >[address] [facility] Comment on above: Order Comment: Check Chest Tube Position, S/P Chest tube DC'd Result Comment: [facility]'s estimated glomerular filtration rate (eGFR) will [...] of individuals. Performed By: #### 0 0071 ####[facility] [place] [address], [facility] Glucose [Mass/Vol] 114 mg/dL High 70-[address] [facility] Comment on above: Order Comment: Check Chest Tube Position, S/P Chest tube DC'd Performed By: #### 0 0071 ####[facility] [place] [address], [facility] Potassium [Moles/Vol] 3.3 mmol/L Low 3.5-5.[address] [facility] Comment on above: Order Comment: Check Chest Tube Position, S/P Chest tube DC'd Performed By: #### 0 0071 ####[facility] Sodium [Moles/Vol] 140 mmol/L Normal 136-[address] [facility] Comment on above: Order Comment: Check Chest Tube Position, S/P Chest tube DC'd Performed By: #### 0 0071 ####[facility] [place] [address], [facility] Urea nitrogen [Mass/Vol] 9 mg/dL Normal 7-[address] [facility] Comment on above: Order Comment: Check Chest Tube Position, S/P Chest tube DC'd Performed By: #### 0 0071 ####[facility] [place] [address], [facility] CBC COMPLETE BLOOD COUNTon 0 03-12-2022 Hematocrit (Bld) [Volume fraction] 35.2 % Low 36.0-45.[address] [facility] Comment on above: Order Comment: No: D o not add to previous draw Performed By: #### 3 5200 #### [facility] [address] [facility] [address], [facility] Hemoglobin (Bld) [Mass/Vol] 10.1 g/dL Low 12.0-15.[address] [facility] Comment on above: Order Comment: No: D o not add to previous draw Performed By: #### 3 5200 #### [facility] [address] [place] [address], [facility] IMM PLATELET FRAC 3.6 % Normal 0.8-6.[address] [facility] Comment on above: Order Comment: No: D o not add to previous draw Performed By: #### 3 5200 #### [facility] [address] [place] [address], [facility] MCH (RBC) [Entitic mass] 21.9 pg Low 27.0-33.[address] [facility] Comment on above: Order Comment: No: D o not add to previous draw Performed By: #### 3 5200 #### [facility] [address] [place] [address], [facility] MCHC (RBC) [Mass/Vol] 28.7 g/dL Low 32.0-35.[address] [facility] Comment on above: Order Comment: No: D o not add to previous draw Performed By: #### 3 5200 #### [facility] [address] [place] [address], [facility] MCV (RBC) [Entitic vol] 76.2 fL Low 82.0-98.[address] [facility] Comment on above: Order Comment: No: D o not add to previous draw Performed By: #### 3 5200 #### [facility] [address] [place] [id number], [facility] Nucleated RBC/100 WBC (Bld) [Ratio] 0 % Normal 0-[address] [facility] Comment on above: Order Comment: No: D o not add to previous draw Performed By: #### 3 5200 #### [facility] [address] [place] [address], [facility] PLAT CNT 129 10*3/uL Low 150-[address] [facility] Comment on above: Order Comment: No: D o not add to previous draw Performed By: #### 3 5200 #### [facility] [address] [place] [address], [place] RBC (Bld) [#/Vol] 4.62 10*6/uL Normal 3.80-5.[address] [facility] Comment on above: Order Comment: No: D o not add to previous draw Performed By: #### 3 5200 #### [facility] [address] [place] [address], [place] RDW Unable to Calculate Normal 11.5-15.[address] [facility] Comment on above: Order Comment: No: D o not add to previous draw Performed By: #### 3 5200 #### [facility] [address] [place] [address], [place] WBC (Bld) [#/Vol] 11.72 10*3/uL High 4.00-10.[address] [facility] Comment on above: Order Comment: No: D o not add to previous draw Performed By: #### 3 5200 #### [facility] [address] [place] [address], [facility] POC GLUCOSE LABon 03-12-2022 Glucose [Mass/Vol] 252 mg/dL High 70-[address] [facility] Comment on above: Performed By: #### 3 5200 #### [facility] [address] [place] [address], [place] POC GLUCOSE LABon 03-11-2022 Glucose [Mass/Vol] 121 mg/dL High 70-[address] [facility] Comment on above: Performed By: #### 8 5499 ####[facility] [place] [address], [place] Glucose [Mass/Vol] 122 mg/dL High 70-[address] [facility] Comment on above: Performed By: #### 3 5200 #### [facility] [address] [place] [address], [facility] Glucose [Mass/Vol] 86 mg/dL Normal 70-[address] [facility] Comment on above: Performed By: #### 3 5200 #### [address] [address], [facility] PORTABLE CHEST 1 VIEWon PORTABLE CHEST 1 VIEW [facility] Department of Radiology [address] [place] [phone] Patient Name: LISE CANALES : 1955 Sex: F Age: Race: White Pt. Location: [id number] Patient Status: I Ordered Date: 03/11/2022 3:25:00 [...] abnormalities Electronically signed: Avinash Mckay. Transcribed by: [email or web address], User Resident: Electronically Signed by: AVINASH MCKAY @ 03/11/2022 06:[address] [facility] Comment on above: Order Comment: Evalu ate for Atelectasis CBC COMPLETE BLOOD COUNTon 0 03-10-2022 Erythrocyte distribution width (RBC) [Ratio] 29.9 % High 11.5-15.[address] [facility] Comment on above: Order Comment: No: D o not add to previous draw Performed By: #### 3 5200 #### [facility] [address] [place] [address], [facility] Hematocrit (Bld) [Volume fraction] 32.2 % Low 36.0-45.[address] [facility] Comment on above: Order Comment: No: D o not add to previous draw Performed By: #### 3 5200 #### [facility] [address] [place] [address], [facility] Hemoglobin (Bld) [Mass/Vol] 9.2 g/dL Low 12.0-15.[address] [facility] Comment on above: Order Comment: No: D o not add to previous draw Performed By: #### 3 5200 #### [facility] [address] [place] [address], [facility] IMM PLATELET FRAC 3.4 % Normal 0.8-6.[address] [facility] Comment on above: Order Comment: No: D o not add to previous draw Performed By: #### 3 5200 #### [facility] [address] [place] [address], [facility] MCH (RBC) [Entitic mass] 21.9 pg Low 27.0-33.[address] [facility] Comment on above: Order Comment: No: D o not add to previous draw Performed By: #### 3 5200 #### [facility] [address] MCHC (RBC) [Mass/Vol] 28.6 g/dL Low 32.0-35.[address] [facility] Comment on above: Order Comment: No: D o not add to previous draw Performed By: #### 3 5200 #### [facility] [address] [place] [id number], [facility] MCV (RBC) [Entitic vol] 76.7 fL Low 82.0-98.[address] [facility] Comment on above: Order Comment: No: D o not add to previous draw Performed By: #### 3 5200 #### [facility] [address] [facility] [address], [facility] Nucleated RBC/100 WBC (Bld) [Ratio] 0 % Normal 0-[address] [facility] Comment on above: Order Comment: No: D o not add to previous draw Performed By: #### 3 5200 #### [facility] [address] [place] [id number], [facility] PLAT CNT 124 10*3/uL Low 150-[address] [facility] Comment on above: Order Comment: No: D o not add to previous draw Performed By: #### 3 5200 #### [facility] [address] [place] [address], [facility] RBC (Bld) [#/Vol] 4.20 10*6/uL Normal 3.80-5.[address] [facility] Comment on above: Order Comment: No: D o not add to previous draw Performed By: #### 3 5200 #### [facility] [address] [place] [address], [facility] WBC (Bld) [#/Vol] 12.68 10*3/uL High 4.00-10.[address] [facility] Comment on above: Order Comment: No: D o not add to previous draw Performed By: #### 3 5200 #### [facility] [address] [place] [address], [place] HEMOGLOBIN A1Con 03-10-2022 Glucose [Moles/Vol] 143 mmol/L Normal [facility] Comment on above: Order Comment: No: D o not add to previous draw Result Comment: Resu lt changed by BSHORT on 03/10/2022 13:15. The previous value was 140. Performed By: #### 3 1791 #### [facility] [address] [place] [address], [facility] HbA1c (Bld) [Mass fraction] 6.6 % High 4.0-6.[address] [facility] Comment on above: Order Comment: No: D o not add to previous draw Result Comment: Resu lt changed by BSHORT on 03/10/2022 13:15. The previous value was 6.5. Performed By: #### 3 1791 #### [facility] [address] [place] [address], [facility] POC GLUCOSE LABon 03-10-2022 Glucose [Mass/Vol] 107 mg/dL High 70-[address] [facility] Comment on above: Performed By: #### 3 5200 #### [facility] [address] [place] [address], [place] Glucose [Mass/Vol] 100 mg/dL Normal 70-[address] [facility] Comment on above: Performed By: #### 8 5499 ####[facility] [place] [address], [facility] Glucose [Mass/Vol] 147 mg/dL High 70-[address] [facility] Comment on above: Performed By: #### 8 5499 ####[facility] [place] [address], [place] Glucose [Mass/Vol] 65 mg/dL Low 70-[address] [facility] Comment on above: Performed By: #### 8 5499 ####[facility] [place] [address], [facility] PORTABLE CHEST 1 VIEWon PORTABLE CHEST 1 VIEW [facility] Department of Radiology [address] [place] [phone] Patient Name: LISE CANALES : 1955 Sex: F Age: Race: White Pt. Location: [id number] Patient Status: I Ordered Date: 03/10/2022 7:40:00 [...] recommended. Electronically signed: Derek Ingram. Transcribed by: [email or web address], User Resident: Electronically Signed by: DEREK INGRAM @ 03/10/2022 12:[address] [facility] Comment on above: Order Comment: No: D o not add to previous draw *URINE CULTUREon 03-09-2022 *URINE CULTURE Clinical Report: (D) Specimen/Source: URINE/CLEAN VOID URINE Collected: 03/09/2022 01:58 Status: Final Last Updated: 03/10/2022 08:51 ISO (Final) 50,000 - 100,000 Cfu/mL Mixed Lexi: Multiple Organisms present suggest contamination. Suggest Repeat Specimen Normal [facility] Comment on above: Performed By: #### 3 0339 ####[facility]3000 [facility].[address] CBC W/DIFFon 03-09-2022 ABS IMM GRANS 0.1 10*3/uL Normal 0.0-0.[address] [facility] Comment on above: Order Comment: Check Chest Tube Position, S/P Chest tube DC'd Performed By: #### 5 0103 ####[facility] ABS NEUTROPHILS 13.3 10*3/uL High 1.6-7.[address] [facility] Comment on above: Order Comment: Check Chest Tube Position, S/P Chest tube DC'd Performed By: #### 5 0103 ####[facility] ANISO Moderate Normal [facility] Comment on above: Order Comment: Check Chest Tube Position, S/P Chest tube DC'd Performed By: #### 5 0103 ####[facility] Basophils (Bld) [#/Vol] 0.0 10*3/uL Normal 0.0-0.[address] [facility] Comment on above: Order Comment: Check Chest Tube Position, S/P Chest tube DC'd Performed By: #### 5 0103 ####[facility] [place] [address], [facility] Basophils/100 WBC (Bld) 0.3 % Normal 0.0-1.[address] [facility] Comment on above: Order Comment: Check Chest Tube Position, S/P Chest tube DC'd Performed By: #### 5 0103 ####[address] Eosinophils (Bld) [#/Vol] 0.1 10*3/uL Normal 0.0-0.[address] [facility] Comment on above: Order Comment: Check Chest Tube Position, S/P Chest tube DC'd Performed By: #### 5 0103 ####[facility] Eosinophils/100 WBC (Bld) 0.5 % Normal 0.0-6.[address] [facility] Comment on above: Order Comment: Check Chest Tube Position, S/P Chest tube DC'd Performed By: #### 5 3 ####[address] Erythrocyte distribution width (RBC) [Ratio] 28.7 % High 11.5-15.[address] [facility] Comment on above: Order Comment: Check Chest Tube Position, S/P Chest tube DC'd Performed By: #### 5 0103 ####[address] Hematocrit (Bld) [Volume fraction] 29.1 % Low 36.0-45.[address] [facility] Comment on above: Order Comment: Check Chest Tube Position, S/P Chest tube DC'd Performed By: #### 5 0103 ####[facility] Hemoglobin (Bld) [Mass/Vol] 8.3 g/dL Low 12.0-15.[address] [facility] Comment on above: Order Comment: Check Chest Tube Position, S/P Chest tube DC'd Performed By: #### 5 0103 ####[facility] HYPO Slight Normal [facility] Comment on above: Order Comment: Check Chest Tube Position, S/P Chest tube DC'd Performed By: #### 5 0103 ####[facility] IMMATURE GRANS 0.5 % Normal 0.0-1.[address] [facility] Comment on above: Order Comment: Check Chest Tube Position, S/P Chest tube DC'd Performed By: #### 5 0103 ####[facility] Lymphocytes (Bld) [#/Vol] 0.8 10*3/uL Low 1.2-4.[address] [facility] Comment on above: Order Comment: Check Chest Tube Position, S/P Chest tube DC'd Performed By: #### 5 0103 ####[facility] Lymphocytes/100 WBC (Bld) 5.5 % Low 20.0-45.[address] [facility] Comment on above: Order Comment: Check Chest Tube Position, S/P Chest tube DC'd Performed By: #### 5 0103 ####[facility] MCH (RBC) [Entitic mass] 21.7 pg Low 27.0-33.[address] [facility] Comment on above: Order Comment: Check Chest Tube Position, S/P Chest tube DC'd Performed By: #### 5 0103 ####[facility] MCHC (RBC) [Mass/Vol] 28.5 g/dL Low 32.0-35.[address] [facility] Comment on above: Order Comment: Check Chest Tube Position, S/P Chest tube DC'd Performed By: #### 5 0103 ####[facility] MCV (RBC) [Entitic vol] 76.2 fL Low 82.0-98.[address] [facility] Comment on above: Order Comment: Check Chest Tube Position, S/P Chest tube DC'd Performed By: #### 5 3 ####[facility] Monocytes (Bld) [#/Vol] 1.1 10*3/uL High 0.1-1.[address] [facility] Comment on above: Order Comment: Check Chest Tube Position, S/P Chest tube DC'd Performed By: #### 5 3 ####[facility] MONOS 7.3 % Normal 5.0-12.[address] [facility] Comment on above: Order Comment: Check Chest Tube Position, S/P Chest tube DC'd Performed By: #### 5 3 ####[facility] Neutrophils/100 WBC (Bld) 85.9 % High 40.0-72.[address] [facility] Comment on above: Order Comment: Check Chest Tube Position, S/P Chest tube DC'd Performed By: #### 3 ####[facility] Nucleated RBC/100 WBC (Bld) [Ratio] 0 % Normal 0-[address] [facility] Comment on above: Order Comment: Check Chest Tube Position, S/P Chest tube DC'd Performed By: #### 5 0103 ####[facility] [facility] PLAT CNT 149 10*3/uL Low 150-[address] [facility] Comment on above: Order Comment: Check Chest Tube Position, S/P Chest tube DC'd Performed By: #### 5 0103 ####[facility] POIK Slight Normal [facility] Comment on above: Order Comment: Check Chest Tube Position, S/P Chest tube DC'd Performed By: #### 5 0103 ####[facility]3000 [facility].[address] POLY Slight Normal [facility] Comment on above: Order Comment: Check Chest Tube Position, S/P Chest tube DC'd Performed By: #### 5 0103 ####[facility] RBC (Bld) [#/Vol] 3.82 10*6/uL Normal 3.80-5.[address] [facility] Comment on above: Order Comment: Check Chest Tube Position, S/P Chest tube DC'd Performed By: #### 5 0103 ####[facility]3000 [facility].[address] WBC (Bld) [#/Vol] 15.41 10*3/uL High 4.00-10.[address] [facility] Comment on above: Order Comment: Check Chest Tube Position, S/P Chest tube DC'd Performed By: #### 5 0103 ####[facility] COMP METABOLIC PANELon 03-09 Albumin [Mass/Vol] 3.8 g/dL Normal 3.5-5.[address] [facility] Comment on above: Order Comment: No: D o not add to previous draw Performed By: #### 3 5200, 86330, 71657, 86822 #### [facility] [address] [place] [address], [place] ALKALINE PHOSPH 52 IU/L Normal 34-[address] [facility] Comment on above: Order Comment: No: D o not add to previous draw Performed By: #### 3 5200, 61889, 05520, 60217 #### [facility] [address] [place] [address], [place] ALT [Catalytic activity/Vol] 13 U/L Normal 7-[address] [facility] Comment on above: Order Comment: No: D o not add to previous draw Performed By: #### 3 5200, 54900, 41891, 39404 #### [facility] [address] [place] [address], [place] AST [Catalytic activity/Vol] 14 U/L Normal 13-[address] [facility] Comment on above: Order Comment: No: D o not add to previous draw Performed By: #### 3 5200, 79545, 28634, 93669 #### [facility] [address] [place] [address], [place] Bilirubin [Mass/Vol] 0.4 mg/dL Normal 0.3-1.[address] [facility] Comment on above: Order Comment: No: D o not add to previous draw Performed By: #### 3 5200, 66234, 75514, 96505 #### [facility] [address] [place] [address], [place] Calcium [Mass/Vol] 9.2 mg/dL Normal 8.6-10.[address] [facility] Comment on above: Order Comment: No: D o not add to previous draw Performed By: #### 3 5200, 55710, 83815, 07696 #### [facility] [address] [place] [address], [place] Chloride [Moles/Vol] 99 mmol/L Normal 98-[address] [facility] Comment on above: Order Comment: No: D o not add to previous draw Performed By: #### 3 5200, 91340, 88959, 69893 #### [facility] [address] [place] [address], [facility] CO2 [Moles/Vol] 33 mmol/L High 21-[address] [facility] Comment on above: Order Comment: No: D o not add to previous draw Performed By: #### 3 5200, 43820, 79933, 83724 #### [facility] [address] [place] [address], [facility] Creatinine [Mass/Vol] 0.79 mg/dL Normal 0.55-1.[address] [facility] Comment on above: Order Comment: No: D o not add to previous draw Performed By: #### 3 5200, 28460, 14310, 99244 #### [facility] [address] [place] [address], [facility] Performed By: #### B LDCX1 #### [facility] [address] [place] [address] Dr. Kayley Hatfield GFR/1.73 sq M.predicted among non-blacks MDRD (S/P/Bld) [Vol rate/Area] mL/min/{1.73_m2} Normal >[address] [facility] Comment on above: Order Comment: No: D o not add to previous draw Result Comment: [facility]'s estimated glomerular filtration rate (eGFR) will [...] of individuals. Performed By: #### 3 5200, 39050, 35916, 09070 #### [facility] [address] [place] [address], [place] Glucose [Mass/Vol] 125 mg/dL High 70-[address] [facility] Comment on above: Order Comment: No: D o not add to previous draw Performed By: #### 3 5200, 01325, 53469, 54595 #### [facility] [address] [place] [address], [place] Potassium [Moles/Vol] 4.7 mmol/L Normal 3.5-5.[address] [facility] Comment on above: Order Comment: No: D o not add to previous draw Performed By: #### 3 5200, 86508, 96695, 07520 #### [facility] [address] [place] [address], [place] Protein [Mass/Vol] 5.9 g/dL Low 6.0-8.[address] [facility] Comment on above: Order Comment: No: D o not add to previous draw Performed By: #### 3 0, 71762, 02286, 56343 #### [facility] [address] [place] [address], [place] Sodium [Moles/Vol] 136 mmol/L Normal 136-[address] [facility] Comment on above: Order Comment: No: D o not add to previous draw Performed By: #### 3 0, 97140, 19255, 83749 #### [facility] [address] [place] [address], [place] Urea nitrogen [Mass/Vol] 12 mg/dL Normal 7-[address] [facility] Comment on above: Order Comment: No: D o not add to previous draw Performed By: #### 3 5200, 61850, 06624, 89871 #### [facility] [address] [place] [address], [place] LIPID PROFILEon 03-09-2022 Cholesterol [Mass/Vol] 160 mg/dL Normal 120-[address] [facility] Comment on above: Order Comment: No: D o not add to previous draw Result Comment: CHOL ESTEROL REFERENCE RANGE: 20 YEARS AND OLDER CARDIOVASCULAR RISK Less than 200 mg/dl Low Risk 200 to 239 mg/dl Borderline Risk 240 mg/dl and greater High Risk Performed By: #### 3 5200, 66988, 54199, 12373 #### [facility] [address] [place] [address], [place] Cholesterol in HDL [Mass/Vol] 76 mg/dL Normal 23-[address] [facility] Comment on above: Order Comment: No: D o not add to previous draw Result Comment: Slig ht variation in normal range could be due to gender and/or age. HDL CHOLESTEROL REFERENCE RANGE: 20 years and older Cardiovascular Risk > or =60 mg/dL Desirable 40 TO 59 mg/dL Low Risk <40 mg/dL High Risk Performed By: #### 3 5200, 75427, 74060, 69296 #### [facility] [address] [place] [address], [place] Cholesterol in LDL [Mass/Vol] 48 mg/dL Normal 0-[address] [facility] Comment on above: Order Comment: No: D o not add to previous draw Result Comment: LDL IS A CALCULATION LDL IS ONLY VALID IF THE TRIG IS LESS THAN 400. Performed By: #### 3 5200, 04180, 85251, 13679 #### [facility] [address] [place] [address], [place] Cholesterol.total/Cho lesterol in HDL [Mass ratio] 2.1 {ratio} Normal .0-4.[address] [facility] Comment on above: Order Comment: No: D o not add to previous draw Performed By: #### 3 5200, 54942, 49093, 34170 #### [facility] [address] [place] [address], [place] NON-HDL CHOLESTEROL 84 mg/dL Normal [facility] Comment on above: Order Comment: No: D o not add to previous draw Performed By: #### 3 5200, 12319, 44024, 32518 #### [facility] 3000 [facility]. [address] Triglyceride [Mass/Vol] 179 mg/dL High 40-[address] [facility] Comment on above: Order Comment: No: D o not add to previous draw Result Comment: TRIG LYCERIDE REFERENCE RANGE: 20 YEARS AND OLDER CARDIOVASCULAR RISK LESS THAN 150 mg/dl LOW RISK 150 TO 199 mg/dl BORDERLINE RISK 200 mg/dl AND GREATER HIGH RISK Performed By: #### 3 5200, 59396, 40540, 99911 #### [facility] [address] VLDL CHOL 36 mg/dL Normal 0-[address] [facility] Comment on above: Order Comment: No: D o not add to previous draw Performed By: #### 3 5200, 16652, 83757, 35048 #### [facility] [address] POC GLUCOSE LABon 03-09-2022 Glucose [Mass/Vol] 105 mg/dL High 70-[address] [facility] Comment on above: Performed By: #### 8 5499 ####[facility].[address] POC SARS COV2 ANTIGEN NEGATI VEon 03-09-2022 POC SARS COV2 ANTIGEN NEG Negative Normal NEGATIVE [facility] Comment on above: Result Comment: Nega [...] antigen from SARS-CoV-2 in direct nasopharyngeal swab (OUTREACH ANALYST) specimens from individuals who are suspected of [...] of Accreditation. Performed By: #### 3 2044 ####[place] [id number] PORTABLE CHEST 1 VIEWon PORTABLE CHEST 1 VIEW [facility] Department of Radiology [address] [place] [address] Patient Name: LISE CANALES : 1955 Sex: F Age: Race: White Pt. Location: [address] [place] [address] Patient Status: I Ordered Date: 03/09/2022 8:55:00 [...] COPD. Electronically signed: Derek Ingram. Transcribed by: [email or web address], User Resident: Electronically Signed by: DEREK INGRAM @ 03/09/2022 02:[address] [facility] Comment on above: Order Comment: Check Chest Tube Position, S/P Chest tube DC'd TROPONIN-Ion 03-09-2022 Troponin I.cardiac [Mass/Vol] 0.00 ng/mL Normal 0.00-0.04 [facility] Comment on above: Order Comment: No: D o not add to previous draw Result Comment: REFE RENCE RANGES: 0.00 - 0.04 ng/ml NORMAL 0.05 - 0.50 ng/ml INDETERMINATE > 0.50 ng/ml CONSISTENT WITH AN M.I. Performed By: #### 3 5200, 37648, 65383, 73827 #### [facility] [address] [place] [address], [facility] Troponin I.cardiac [Mass/Vol] 0.01 ng/mL Normal 0.00-0.[address] [facility] Comment on above: Order Comment: No: D o not add to previous draw Result Comment: REFE RENCE RANGES: 0.00 - 0.04 ng/ml NORMAL 0.05 - 0.50 ng/ml INDETERMINATE > 0.50 ng/ml CONSISTENT WITH AN M.I. Performed By: #### 3 5200 #### [facility] [address] Troponin I.cardiac [Mass/Vol] 0.00 ng/mL Normal 0.00-0.[address] [facility] Comment on above: Order Comment: No: D o not add to previous draw Result Comment: REFE RENCE RANGES: 0.00 - 0.04 ng/ml NORMAL 0.05 - 0.50 ng/ml INDETERMINATE > 0.50 ng/ml CONSISTENT WITH AN M.I. Performed By: #### 3 5200, 44372, 80277, 40000 #### [facility] [address] TSH3 WITH REFLEX FT4on 03-09 TSH 3RD GENERATION 0.60 uIU/mL Normal 0.34-5.[address] [facility] Comment on above: Order Comment: No: D o not add to previous draw Performed By: #### 3 5200, 47718, 72687, 56173 #### [facility] [address] URINALYSIS REFLEXon 03-09-20 Appearance (U) CLEAR Normal CLEAR [facility] Comment on above: Order Comment: Check Chest Tube Position, S/P Chest tube DC'd Performed By: #### 3 0965 ####[facility] [place] [address], [facility] Bilirubin Ql (U) Negative Normal NEGATIVE [facility] Comment on above: Order Comment: Check Chest Tube Position, S/P Chest tube DC'd Performed By: #### 3 0965 ####[facility] [place] [address], [facility] Color (U) STRAW Abnormal YELLOW [facility] Comment on above: Order Comment: Check Chest Tube Position, S/P Chest tube DC'd Performed By: #### 3 0965 ####[facility] [facility] [place] [address], [place] EPIS OCC Normal FEW,OCC,NONE SEEN [facility] Comment on above: Order Comment: Check Chest Tube Position, S/P Chest tube DC'd Performed By: #### 3 0965 ####[facility] Glucose Ql (U) Negative Normal NEGATIVE [facility] Comment on above: Order Comment: Check Chest Tube Position, S/P Chest tube DC'd Performed By: #### 3 0965 ####[facility] Hemoglobin Ql (U) MODERATE Abnormal NEGATIVE [facility] Comment on above: Order Comment: Check Chest Tube Position, S/P Chest tube DC'd Performed By: #### 3 0965 ####[facility] KETONE Negative Normal NEGATIVE [facility] Comment on above: Order Comment: Check Chest Tube Position, S/P Chest tube DC'd Performed By: #### 3 0965 ####[facility] LEUK SHARMIN SMALL Abnormal NEGATIVE [facility] Comment on above: Order Comment: Check Chest Tube Position, S/P Chest tube DC'd Performed By: #### 3 0965 ####[facility] MUCUS THREADS OCC Abnormal NONE SEEN [facility] Comment on above: Order Comment: Check Chest Tube Position, S/P Chest tube DC'd Performed By: #### 3 0965 ####[facility] Nitrite Ql (U) Negative Normal NEGATIVE [facility] Comment on above: Order Comment: Check Chest Tube Position, S/P Chest tube DC'd Performed By: #### 3 0965 ####[facility]3000 [facility].[address] pH (U) 6.0 [pH] Normal 5.0-8.[address] [facility] Comment on above: Order Comment: Check Chest Tube Position, S/P Chest tube DC'd Performed By: #### 3 0965 ####[facility] [facility].[address] Protein Ql (U) Negative Normal NEGATIVE [facility] Comment on above: Order Comment: Check Chest Tube Position, S/P Chest tube DC'd Performed By: #### 3 0965 ####[facility].[address] RBC 6-10 Abnormal NONE SEEN [facility] Comment on above: Order Comment: Check Chest Tube Position, S/P Chest tube DC'd Performed By: #### 3 0965 ####[facility] [place] [address].[address] SPEC GRAV 1.015 Normal 1.015-1.[address] [facility] Comment on above: Order Comment: Check Chest Tube Position, S/P Chest tube DC'd Performed By: #### 3 0965 ####[facility]3000 [facility].[address] WBC UA 11-20 Abnormal NONE SEEN [facility] Comment on above: Order Comment: Check Chest Tube Position, S/P Chest tube DC'd Performed By: #### 3 0965 ####[facility].[address] CBC W MANUAL DIFFon 03-08-20 22 ATYPICAL LYMPH # Normal [facility] Comment on above: Performed By: #### C VDTBH #### [facility] [address] [place], [place] [address] Dr. Kayley Hatfield ATYPICAL LYMPH % Normal [facility] Comment on above: Performed By: #### C VDTBH #### [facility] [address] [place] [address] Dr. Kayley Hatfield BAND # Normal 0.0-0.3 [facility] Comment on above: Performed By: #### C VDTBH #### [facility] [address] [place] [address] Dr. Kayley Hatfield BAND % Normal 0-5 [facility] Comment on above: Performed By: #### C VDTBH #### [facility] [address] [place] [address] Dr. Kayley Hatfield BASOM # 0.00 103/ul Normal 0.00-0.10 [facility] Comment on above: Performed By: #### C VDTBH #### [facility] [address] [place] [address] Dr. Kayley Hatfield BASOM % 0.0 % Critically low 0.2-2.0 [facility] Comment on above: Performed By: #### C VDTBH #### [facility] [address] [place] [address] Dr. Kayley Hatfield BLAST # Normal [facility] Comment on above: Performed By: #### C VDTBH #### [facility] [address] [place] [address] Dr. Kayley Hatfield BLAST % Normal [facility] Comment on above: Performed By: #### C VDTBH #### [facility] [address] [place] [address] Dr. Kayley Hatfield CORRECTED WBC Normal 4.0-11.0 [facility] Comment on above: Performed By: #### C VDTBH #### [facility] [address] [place] [address] Dr. Kayley Hatfield EOS # 0.14 103/ul Normal 0.00-0.[address] [facility] Comment on above: Performed By: #### C VDTBH #### [facility] [address] [place] [address] Dr. Kayley Hatfield EOS% 1.0 % Normal 0.9-7.0 [facility] Comment on above: Performed By: #### C VDTBH #### [facility] [address] [place] [address] [address] Kayley Hatfield HCT 27.5 % Critically low 36.0-48.0 [facility] Comment on above: Performed By: #### C VDTBH #### [facility] [address] [place] [address] Dr. Kayley Hatfield HGB 7.9 g/dl Critically low 12.0-16.0 [facility] Comment on above: Performed By: #### C VDTBH #### [facility] [address] [place] [address] Dr. Kayley Hatfield LYMPHM # 1.42 103/ul Normal 1.20-3.80 [facility] Comment on above: Performed By: #### C VDTBH #### [facility] [address] [place] [address] Dr. Kayley Hatfield LYMPHM% 10.0 % Critically low 20.5-60.0 [facility] Comment on above: Performed By: #### C VDTBH #### [facility] [address] [place] [address] Dr. Kayley Hatfield MCH 21.5 pg Critically low 26.7-34.0 [facility] Comment on above: Performed By: #### C VDTBH #### [facility] [address] [place] [address] Dr. Kayley Hatfield MCHC 28.7 g/dl Critically low 29.9-35.2 [facility] Comment on above: Performed By: #### C VDTBH #### [facility] [address] [place] [address] Dr. Kayley Hatfield MCV 74.7 fL Critically low 81.0-99.0 [facility] Comment on above: Performed By: #### C VDTBH #### [facility] [address] [place] [address] Dr. Kayley Hatfield METAMYELOCYTE # Normal [facility] Comment on above: Performed By: #### C VDTBH #### [facility] [address] [place] [address] Dr. Kayley Hatfield METAMYELOCYTE % Normal [facility] Comment on above: Performed By: #### C VDTBH #### [facility] [address] [place] [address] [address] Kayley Hatfield MONOM# 2.13 103/ul Critically high 0.30-0.80 [facility] Comment on above: Performed By: #### C VDTBH #### [facility] [address] [place] [address] [address] Kayley Hatfield MONOM% 15.0 % Critically high 1.7-12.0 [facility] Comment on above: Performed By: #### C VDTBH #### [facility] [address] [place] [address] Dr. Kayley Hatfield MPV 9.5 fL Normal 9.5-13.5 [facility] Comment on above: Performed By: #### C VDTBH #### [facility] [address] [place] [address] Dr. Kayley Hatfield MYELOCYTE # Normal [facility] Comment on above: Performed By: #### C VDTBH #### [facility] [address] [place] [address] Dr. Kayley Hatfield MYELOCYTE % Normal [facility] Comment on above: Performed By: #### C VDTBH #### [facility] [address] [place] [address] Dr. Kayley Hatfield NRBC Normal [facility] Comment on above: Performed By: #### C VDTBH #### [facility] [address] [place] [address] [address] Kayley Hatfield PLT 180 103/ul Normal 150-[address] [facility] Comment on above: Performed By: #### C VDTBH #### [facility] [address] [place] [address] Dr. Kayley Hatfield RBC 3.68 106/ul Critically low 4.20-5.40 [facility] Comment on above: Performed By: #### C VDTBH #### [facility] [address] [place] [address] Dr. Kayley Hatfield RDW 27.5 % Critically high 11.0-15.0 [facility] Comment on above: Performed By: #### C VDTBH #### [facility] [address] [place] [address] Dr. Kayley Hatfield SEG # 10.51 103/ul Critically high 1.40-6.50 [facility] Comment on above: Performed By: #### C VDTBH #### [facility] [address] [place] [address] Dr. Kayley Hatfield SEG % 74.0 % Normal 43.0-75.0 [facility] Comment on above: Performed By: #### C VDTBH #### [facility] [address] [place] [address] Dr. Kayley Hatfield WBC 14.2 103/ul Critically high 4.0-11.0 [facility] Comment on above: Performed By: #### C VDTBH #### [facility] [address] [place] [address] Dr. Kayley Hatfield PRBC LEUKOREDUCEDon 03-08-20 22 ABO and Rh group Nom (Bld) Cross Match Result Compatible Unit Blood Type O Pos Unit Number [id number] Status Information Transfused Product ID Red Blood Cells Product Code [id number] Cross Match Result Compatible Blood Bank Notes CALLED TO VIC IN ICU @1657 Unit Blood Type O Pos Unit Number [id number] Status Information Transfused Product ID Red Blood Cells Product Code [id number] Normal [facility] Comment on above: Performed By: #### P RBC #### [facility] [address] [place] [address] Dr. Kayley Hatfield PROF CHEM 8 (BAS METB)on Anion gap [Moles/Vol] 10.1 mmol/L Normal [facility] Comment on above: Performed By: #### B LDCX1 #### [facility] [address] [place] [address] Dr. Kayley Hatfield Calcium [Mass/Vol] 8.8 mg/dL Normal 8.5-10.1 [facility] Comment on above: Performed By: #### B LDCX1 #### [facility] [address] [place] [address] [address] Kayley Hatfield Chloride [Moles/Vol] 100 mmol/L Normal 98-107 [facility] Comment on above: Performed By: #### B LDCX1 #### [facility] [address] [place] [address] [address] Kayley Hatfield CO2 [Moles/Vol] 34.2 mmol/L Critically high 21.0-32.0 [facility] Comment on above: Performed By: #### B LDCX1 #### [facility] [address] [place] [address] [address] Kayley Hatfield EGFR-AF LAO >60 Normal >=60 [facility] Comment on above: Performed By: #### B LDCX1 #### [facility] [address] [place] [address] Dr. Kayley Hatfield EGFR-NON AF LAO >60 Normal >=60 [facility] Comment on above: Performed By: #### B LDCX1 #### [facility] [address] [place] [address] [address] Kayley Hatfield Glucose [Mass/Vol] 107 mg/dL Critically high 74-106 [facility] Comment on above: Performed By: #### B LDCX1 #### [facility] [address] [place] [address] [address] Kayley Hatfield Potassium [Moles/Vol] 4.3 mmol/L Normal 3.5-5.1 [facility] Comment on above: Performed By: #### B LDCX1 #### [facility] [address] [place] [address] Dr. Kayley Hatfield Sodium [Moles/Vol] 140 mmol/L Normal 136-145 [facility] Comment on above: Performed By: #### B LDCX1 #### [facility] [address] [place] [address] [address] Kayley Hatfield Urea nitrogen [Mass/Vol] 15.0 mg/dL Normal 7.0-18.0 [facility] Comment on above: Performed By: #### B LDCX1 #### [facility] [address] [place] [address] [address] Kayley Hatfield Urea nitrogen/Creatinine [Mass ratio] 19.0 mg/mg Normal [facility] Comment on above: Performed By: #### B [id number] #### [facility] [address] [place] [address] Dr. Kayley Hatfield XR CHEST 1 Von [...] MIGUE REYNOSO Date: 2022-03-08 07:[address] [facility] CBC W MANUAL DIFFon 03-07-20 22 ACANTHOCYTES SLIGHT Normal [facility] Comment on above: Performed By: #### B LDCX1 #### [facility] [address] [place] [address] Dr. Kayley Hatfield ANISOCYTOSIS 2+ Normal [facility] Comment on above: Performed By: #### B LDCX1 #### [facility] [address] [place] [address] Dr. Kayley Hatfield ATYPICAL LYMPH # Normal [facility] Comment on above: Performed By: #### B [id number] #### [facility] [address] [place] [address] Dr. Kayley Hatfield ATYPICAL LYMPH % Normal [facility] Comment on above: Performed By: #### B LDCX1 #### [facility] [address] [place] [address] Dr. Kayley Hatfield BAND # 0.0 103/ul Normal 0.0-0.[address] [facility] Comment on above: Performed By: #### B LDCX1 #### [facility] [address] [place] [address] Dr. Kayley Hatfield BAND % 0 % Normal 0-5 [facility] Comment on above: Performed By: #### B LDCX1 #### [facility] [address] [address] [address] Kayley Hatfield BASOM # 0.00 103/ul Normal 0.00-0.10 [facility] Comment on above: Performed By: #### B LDCX1 #### [facility] [address] [place] [address] Dr. Kayley Hatfield BASOM % 0.0 % Critically low 0.2-2.0 [facility] Comment on above: Performed By: #### B LDCX1 #### [facility] [address] [place] [address] Dr. Kayley Hatfield BLAST # Normal [facility] Comment on above: Performed By: #### B LDCX1 #### [facility] [address] [place] [address] Dr. Kayley Hatfield BLAST % Normal [facility] Comment on above: Performed By: #### B LDCX1 #### [facility] [address] [place] [address] Dr. Kayley Hatfield ANDREE CELLS SLIGHT Normal [facility] Comment on above: Performed By: #### B LDCX1 #### [facility] [address] [place] [address] Dr. Kayley Hatfield CORRECTED WBC Normal 4.0-11.0 [facility] Comment on above: Performed By: #### B LDCX1 #### [facility] [address] [place] [address] Dr. Kayley Hatfield EOS # 0.16 103/ul Normal 0.00-0.70 [facility] Comment on above: Performed By: #### B LDCX1 #### [facility] [address] [place] [address] Dr. Kayley Hatfield EOS% 1.0 % Normal 0.9-7.0 [facility] Comment on above: Performed By: #### B LDCX1 #### [facility] [address] [address] [address] Kayley Hatfield GIANT PLATELETS SEEN Normal [facility] Comment on above: Performed By: #### B LDCX1 #### [facility] [address] [address] [address] Kayley Hatfield HCT 31.1 % Critically low 36.0-48.0 [facility] Comment on above: Performed By: #### B LDCX1 #### [facility] [address] [address] [address] Kayley Hatfield HGB 9.1 g/dl Critically low 12.0-16.0 [facility] Comment on above: Performed By: #### B LDCX1 #### [facility] [address] [address] [address] Kayley Hatfield HYPOCHROMASIA 1+ Normal [facility] Comment on above: Performed By: #### B LDCX1 #### [facility] [address] [address] [address] Kayley Hatfield LYMPHM # 2.09 103/ul Normal 1.20-3.80 [facility] Comment on above: Performed By: #### B LDCX1 #### [facility] [address] [address] [address] Kayley Hatfield LYMPHM% 13.0 % Critically low 20.5-60.0 [facility] Comment on above: Performed By: #### B LDCX1 #### [facility] [address] [address] [address] Kayley Hatfield MCH 21.4 pg Critically low 26.7-34.0 [facility] Comment on above: Performed By: #### B LDCX1 #### [facility] [address] [address] [address] Kayley Hatfield MCHC 29.3 g/dl Critically low 29.9-35.2 [facility] Comment on above: Performed By: #### B LDCX1 #### [facility] [address] [address] [address] Kayley Hatfield MCV 73.0 fL Critically low 81.0-99.0 [facility] Comment on above: Performed By: #### B LDCX1 #### [facility] [address] [place] [address] Dr. Kayley Hatfield METAMYELOCYTE # Normal [facility] Comment on above: Performed By: #### B LDCX1 #### [facility] [address] [place] [address] Dr. Kayley Hatfield METAMYELOCYTE % Normal [facility] Comment on above: Performed By: #### B LDCX1 #### [facility] [address] [place] [address] Dr. Kayley Hatfield MICROCYTOSIS SLIGHT Normal [facility] Comment on above: Performed By: #### B LDCX1 #### [facility] [address] [place] [address] Dr. Kayley Hatfield MONOM# 0.48 103/ul Normal 0.30-0.80 [facility] Comment on above: Performed By: #### B LDCX1 #### [facility] [address] [place] [address] Dr. Kayley Hatfield MONOM% 3.0 % Normal 1.7-12.0 [facility] Comment on above: Performed By: #### B LDCX1 #### [facility] [address] [place] [address] Dr. Kayley Hatfield MPV 8.9 fL Critically low 9.5-13.5 [facility] Comment on above: Performed By: #### B LDCX1 #### [facility] [address] [place] [address] Dr. Kayley Hatfield MYELOCYTE # Normal [facility] Comment on above: Performed By: #### B LDCX1 #### [facility] [address] [place] [address] Dr. Kayley Hatfield MYELOCYTE % Normal [facility] Comment on above: Performed By: #### B LDCX1 #### [facility] [address] [place] [address] Dr. Kayley Hatfield NRBC Normal [facility] Comment on above: Performed By: #### B LDCX1 #### [facility] [address] [place], [place] [address] Dr. Kayley Hatfield PLT 243 103/ul Normal 150-[address] [facility] Comment on above: Performed By: #### B LDCX1 #### [facility] [id number] Kayley Hatfield RBC 4.26 106/ul Normal 4.20-5.[address] [facility] Comment on above: Performed By: #### B LDCX1 #### [facility] [address] [address] [address] Kayley Hatfield RDW 27.1 % Critically high 11.0-15.0 [facility] Comment on above: Performed By: #### B LDCX1 #### [facility] [address] [place] [address] Dr. Kayley Hatfield SEG # 13.36 103/ul Critically high 1.40-6.50 [facility] Comment on above: Performed By: #### B LDCX1 #### [facility] [address] [address] [address] Kayley Hatfield SEG % 83.0 % Critically high 43.0-75.0 [facility] Comment on above: Performed By: #### B LDCX1 #### [facility] [id number] Kayley Hatfield WBC 16.1 103/ul Critically high 4.0-11.0 [facility] Comment on above: Performed By: #### B LDCX1 #### [facility] [address] [address] [address] CHEST WO CONon [...] ASAEL MALDONADO Date: 2022-03-07 09:[address] [facility] HEMOGLOBIN AND HEMATOCRITon 03-07-2022 Hematocrit (Bld) [Volume fraction] 31.8 % Critically low 36.0-48.0 [facility] Comment on above: Performed By: #### H GBHCT #### [facility] [address] [place] [address] Dr. Kayley Hatfield Hemoglobin (Bld) [Mass/Vol] 9.5 g/dL Critically low 12.0-16.0 [facility] Comment on above: Performed By: #### H GBHCT #### [facility] [address] [address] [address] Kayley Hatfield RETICULOCYTEon 03-07-2022 RETIC 1.92 % Normal 0.60-3.[address] [facility] Comment on above: Performed By: #### O BSCRN #### [facility] [address] [place] [address] Dr. Kayley Hatfield XR CHEST 1 Von [...] ASAEL MALDONADO Date: 2022-03-07 12:[address] [facility] XR CHEST 1 V EXAM: XR CHEST [...] ASAEL MALDONADO Date: 2022-03-07 07:[address] [facility] BNPon 03-06-2022 Natriuretic peptide B (Bld) [Mass/Vol] 441.0 pg/mL Normal <=900.[address] [facility] Comment on above: Performed By: #### H GBHCT #### [facility] [address] [place] [address] Dr. Kayley Hatfield CBC AUTO DIFFon 03-06-2022 BASO # 0.1 103/ul Normal 0.0-0.1 [facility] Comment on above: Performed By: #### O BSCRN #### [facility] [address] [place] [address] Dr. Kayley Hatfield Basophils/100 WBC (Bld) 0.7 % Normal 0.2-2.0 [facility] Comment on above: Performed By: #### O BSCRN #### [facility] [address] [place] [address] Dr. Kayley Hatfield EO # 0.1 103/ul Normal 0.0-0.[address] [facility] Comment on above: Performed By: #### O BSCRN #### [facility] [address] [place] [address] Dr. Kayley Hatfield Eosinophils/100 WBC (Bld) 0.7 % Critically low 0.9-7.0 [facility] Comment on above: Performed By: #### O BSCRN #### [facility] [address] [place] [address] Dr. Kayley Hatfield Erythrocyte distribution width (RBC) [Ratio] 20.0 % Critically high 11.0-15.0 [facility] Comment on above: Performed By: #### O BSCRN #### [facility] [address] [place] [address] Dr. Kayley Hatfield Hematocrit (Bld) [Volume fraction] 20.1 % Critically low 36.0-48.0 [facility] Comment on above: Performed By: #### O BSCRN #### [facility] [address] [place] [address] Dr. Kayley Hatfield Hemoglobin (Bld) [Mass/Vol] 4.9 g/dL Critically low 12.0-16.0 [facility] Comment on above: Performed By: #### O BSCRN #### [facility] [address] [place] [address] Dr. Kayley Hatfield IG # 0.12 10e3/ul Critically high 0.00-0.03 [facility] Comment on above: Performed By: #### O BSCRN #### [facility] [address] [place] [address] Dr. Kayley Hatfield IG % 0.8 % Critically high 0.0-0.5 [facility] Comment on above: Performed By: #### O BSCRN #### [facility] [address] [place] [address] Dr. Kayley Hatfield LYMPH # 1.0 103/ul Critically low 1.2-3.8 [facility] Comment on above: Performed By: #### O BSCRN #### [facility] [address] [place] [address] Dr. Kayley Hatfield Lymphocytes/100 WBC (Bld) 6.5 % Critically low 20.5-60.[address] [facility] Comment on above: Performed By: #### O BSCRN #### [facility] [address] [place] [address] Dr. Kayley Hatfield MANUAL DIFF REQ NO Normal [facility] Comment on above: Performed By: #### O BSCRN #### [facility] [address] [place] [address] Dr. Kayley Hatfield MCH (RBC) [Entitic mass] 15.2 pg Critically low 26.7-34.[address] [facility] Comment on above: Performed By: #### O BSCRN #### [facility] [address] [place] [address] Dr. Kayley Hatfield MCHC (RBC) [Mass/Vol] 24.4 g/dL Critically low 29.9-35.2 [facility] Comment on above: Performed By: #### O BSCRN #### [facility] [address] [place] [address] Dr. Kayley Hatfield MCV (RBC) [Entitic vol] 62.2 fL Critically low 81.0-99.0 [facility] Comment on above: Performed By: #### O BSCRN #### [facility] [address] [place] [address] Dr. Kayley Hatfield MONO # 0.5 103/ul Normal 0.3-0.[address] [facility] Comment on above: Performed By: #### O BSCRN #### [facility] [address] [place] [address] Dr. Kayley Hatfield Monocytes/100 WBC (Bld) 3.5 % Normal 1.7-12.[address] [facility] Comment on above: Performed By: #### O BSCRN #### [facility] [address] [place] [address] Dr. Kayley Hatfield NEUT # 13.2 103/ul Critically high 1.4-6.5 [facility] Comment on above: Performed By: #### O BSCRN #### [facility] [address] [place] [address] Dr. Kayley Hatfield Neutrophils/100 WBC (Bld) 87.8 % Critically high 43.0-75.0 [facility] Comment on above: Performed By: #### O BSCRN #### [facility] [address] [place] [address] Dr. Kayley Hatfield Platelet mean volume (Bld) [Entitic vol] 9.1 fL Critically low 9.5-13.5 [facility] Comment on above: Performed By: #### O BSCRN #### [facility] [address] [place] [address] Dr. Kayley Hatfield PLT 384 103/ul Normal 150-450 [facility] Comment on above: Performed By: #### O BSCRN #### [facility] [address] [place] [address] Dr. Kayley Hatfield RBC 3.23 106/ul Critically low 4.20-5.40 [facility] Comment on above: Performed By: #### O BSCRN #### [facility] [address] [place] [address] Dr. Kayley Hatfield WBC 15.1 103/ul Critically high 4.0-11.0 [facility] Comment on above: Performed By: #### O BSCRN #### [facility] [address] [place] [address] Dr. Kayley Hatfield CULTURE BLOODon 03-06-2022 Microscopic examination of blood, culture Culture Observations: NO GROWTH AT [address] [facility] Comment on above: Performed By: #### C VDTBH #### [facility] [address] [place] [address] Dr. Kayley Hatfield Performed By: #### B LDCX1 #### [facility] [address] [place] [address] Dr. Kayley Hatfield Covid-19 PCR (CVDTB)on 02-07 SARS-CoV-2 (COVID-19) RNA ELBA+probe Ql (Unsp spec) Not detected Normal NOT DETECTED [facility] Comment on above: Result Comment: When diagnostic [...] for this test is supported by the [place] of [employer]'s declaration that [...] used). Performed By: #### C VDTBH #### [facility] [address] [place] [address] Dr. Kayley Hatfield ER URINE PROFILEon 2 Bilirubin Ql (U) Negative Normal NEGATIVE [facility] Comment on above: Performed By: #### P RBC #### [facility] [address] [place] [address] Dr. Kayley Hatfield Clarity (U) CLEAR Normal CLEAR [facility] Comment on above: Performed By: #### P RBC #### [facility] [address] [place] [address] Dr. Kayley Hatfield Color (U) LT. YELLOW Normal YELLOW [facility] Comment on above: Performed By: #### P RBC #### [facility] [address] [place] [address] Dr. Kayley Hatfield ERUAHD A micrscopic examination will be performed if indicated. Normal [facility] Comment on above: Performed By: #### P RBC #### [facility] [address] [place] [address] Dr. Kayley Hatfield Glucose Ql (U) Negative Normal NEGATIVE [facility] Comment on above: Performed By: #### P RBC #### [facility] [address] [place] [address] Dr. Kayley Hatfield Hemoglobin Ql (U) Negative Normal NEGATIVE [facility] Comment on above: Performed By: #### P RBC #### [facility] [address] [place] [address] Dr. Kayley Hatfield Ketones Ql (U) Negative Normal NEGATIVE [facility] Comment on above: Performed By: #### P RBC #### [facility] [address] [place] [address] Dr. Kayley Hatfield LEUKOCYTES Negative Normal NEGATIVE [facility] Comment on above: Performed By: #### P RBC #### [facility] [address] [place] [address] Dr. Kayley Hatfield Nitrite Ql (U) Negative Normal NEGATIVE [facility] Comment on above: Performed By: #### P RBC #### [facility] [address] [place] [address] Dr. Kayley Hatfield pH (U) 6.0 [pH] Normal 5-[address] [facility] Comment on above: Performed By: #### P RBC #### [facility] [address] [place] [address] Dr. Kayley Hatfield SPEC GRAVITY 1.010 Normal 1.005-<=1.025 [facility] Comment on above: Performed By: #### P RBC #### [facility] [address] [place] [address] Dr. Kayley Hatfield UA PROTEIN Negative Normal NEGATIVE/ TRACE [facility] Comment on above: Performed By: #### P RBC #### [facility] [address] [place] [address] Dr. Kayley Hatfield UR MICRO IND NOT INDICATED Normal [facility] Comment on above: Performed By: #### P RBC #### [facility] [address] [place] [address] Dr. Kayley Hatfield Urobilinogen Qn (U) 0.2 {Lu'U}/dL Normal 0.2 - 1. 0 [facility] Comment on above: Performed By: #### P RBC #### [facility] [address] [place] [address] Dr. Kayley Hatfield FERRITINon 03-06-2022 Ferritin [Mass/Vol] 4.0 ng/mL Critically low 8.0-252.0 [facility] Comment on above: Performed By: #### O BSCRN #### [facility] [address] [address] [address] Kayley Hatfield IRON AND TIBCon 03-06-2022 % SATURATION 2.3 % Normal [facility] Comment on above: Performed By: #### C VDTBH #### [facility] [address] [address] [address] Kayley Hatfield Iron [Mass/Vol] 12.0 ug/dL Critically low 50.0-170.0 [facility] Comment on above: Performed By: #### C VDTBH #### [facility] [address] [place] [address] Dr. Kayley Hatfield TIBC DIRECT 532.0 ug/dL Critically high 250.0-450.0 [facility] Comment on above: Performed By: #### C VDTBH #### [facility] [address] [place] [address] Dr. Kayley Hatfield OCC BLD IMMUNO SCREENon 02-07 OCCULT BLOOD Negative Normal NEGATIVE [facility] Comment on above: Performed By: #### O BSCRN #### [facility] [address] [place] [address] Dr. Kayley Hatfield PROF 14(COMP METB)on 022 Albumin [Mass/Vol] 3.6 g/dL Normal 3.4-5.0 [facility] Comment on above: Performed By: #### H GBHCT #### [facility] [address] [place] [address] Dr. Kayley Hatfield Albumin/Globulin [Mass ratio] 1.2 {ratio} Normal [facility] Comment on above: Performed By: #### H GBHCT #### [facility] [address] [place] [address] Dr. Kayley Hatfield ALP [Catalytic activity/Vol] 71 U/L Normal 46-116 [facility] Comment on above: Performed By: #### H GBHCT #### [facility] [address] [address] [address] Kayley Hatfield ALT [Catalytic activity/Vol] 20 U/L Normal 14-59 [facility] Comment on above: Performed By: #### H GBHCT #### [facility] [address] [address] [address] Kayley Hatfield Anion gap [Moles/Vol] 9.8 mmol/L Normal [facility] Comment on above: Performed By: #### H GBHCT #### [facility] [address] [address] [address] Kayley Hatfield AST [Catalytic activity/Vol] 12 U/L Critically low 15-37 [facility] Comment on above: Performed By: #### H GBHCT #### [facility] [address] [address] [address] Kayley Hatfield Bilirubin [Mass/Vol] 0.4 mg/dL Normal 0.2-1.0 [facility] Comment on above: Performed By: #### H GBHCT #### [facility] [address] [address] [address] Kayley Hatfield Calcium [Mass/Vol] 9.0 mg/dL Normal 8.5-10.1 [facility] Comment on above: Performed By: #### H GBHCT #### [facility] [address] [address] [address] Kayley Hatfield Chloride [Moles/Vol] 99 mmol/L Normal 98-[address] [facility] Comment on above: Performed By: #### H GBHCT #### [facility] [address] [address] [address] Kayley Hatfield CO2 [Moles/Vol] 31.5 mmol/L Normal 21.0-32.0 [facility] Comment on above: Performed By: #### H GBHCT #### [facility] [address] [address] [address] Kayley [place] Creatinine [Mass/Vol] 0.89 mg/dL Normal 0.55-1.02 [facility] Comment on above: Performed By: #### H GBHCT #### [facility] [address] [address] [address] Kayley [place] EGFR-AF LAO >60 Normal >=60 [facility] Comment on above: Performed By: #### H GBHCT #### [facility] [address] [address] [address] Kayley [place] EGFR-NON AF LAO >60 Normal >=60 [facility] Comment on above: Performed By: #### H GBHCT #### [facility] [address] [address] [address] Kayley [place] Globulin (S) [Mass/Vol] 3.1 g/dL Normal [facility] Comment on above: Performed By: #### H GBHCT #### [facility] [address] [address] [address] Kayley [place] Glucose [Mass/Vol] 174 mg/dL Critically high 74-106 [facility] Comment on above: Performed By: #### H GBHCT #### [facility] [address] [address] [address] Kayley [place] Potassium [Moles/Vol] 4.3 mmol/L Normal 3.5-5.1 [facility] Comment on above: Performed By: #### H GBHCT #### [facility] [address] [address] [address] Kayley [place] Protein [Mass/Vol] 6.7 g/dL Normal 6.4-8.2 [facility] Comment on above: Performed By: #### H GBHCT #### [facility] [address] [address] [address] Kayley [place] Sodium [Moles/Vol] 136 mmol/L Normal 136-145 [facility] Comment on above: Performed By: #### H GBHCT #### [facility] [address] [address] [address] Kayley [place] Urea nitrogen [Mass/Vol] 17.0 mg/dL Normal 7.0-18.0 [facility] Comment on above: Performed By: #### H GBHCT #### [facility] [address] [place], [place] [address] Dr. Kayley [place] Urea nitrogen/Creatinine [Mass ratio] 19.1 mg/mg Normal [facility] Comment on above: Performed By: #### H GBHCT #### [facility] [address] [place], [place] [address] Dr. Kayley [place] TROPONIN, HIGH SENSITIVITYon 03-06-2022 HSTROP 7.0 pg/mL Normal 4.0-51.[address] [facility] Comment on above: Result Comment: CUT- OFF POINTS HAVE BEEN ESTABLISHED BASED ON THE FOURTH UNIVERSAL DEFINITIONS OF MYOCARDIAL INFARCTION. THE UPPER REFERENCE LIMIT (URL) OF TROPONIN, DEFINED THE 99TH PERCENTILE OF cTnI DISTRIBUTION IN A REFERENCE POPULATION, HAS BEEN CONFIRMED THE DECISION THRESHOLD FOR [place] DIAGNOSIS. Performed By: #### H GBHCT #### [facility] [address] [address] [address] Kayley [place] TYPE AND SCREENon 03-06-2022 TYPE AND SCREEN Negative Normal [facility] Comment on above: Performed By: #### C VDTB #### [facility] [address] [place], [place] [address] Dr. Kayley [place] XR CHEST 1 Von [...] MIGUE REYNOSO Date: 2022-03-06 16:[address] [facility] XR CHEST 1 V EXAMINATION: XR [...] MIGUE REYNOSO Date: 2022-03-06 14:[address] [facility] XR DEXA BONE DENSITYon 12-22 XR DEXA [...] MIGUE REYNOSO Date: 2021-12-22 17:[address] [facility] CARDIAC ABDIAZIZ ADMITon 022 CK [Catalytic activity/Vol] 21 U/L Critically low 26-[address] [facility] Comment on above: Performed By: #### B [id number] #### [facility] [address] [address] [address] Kayley [place] CK.MB [Mass/Vol] 1.00 ng/mL Normal <=3.60 [facility] Comment on above: Performed By: #### B LDCX1 #### [facility] [address] [address] [address] Kayley [place] HSTROP 11.6 pg/mL Normal 4.0-51.[address] [facility] Comment on above: Result Comment: CUT- OFF POINTS HAVE BEEN ESTABLISHED BASED ON THE FOURTH UNIVERSAL DEFINITIONS OF MYOCARDIAL INFARCTION. THE UPPER REFERENCE LIMIT (URL) OF TROPONIN, DEFINED THE 99TH PERCENTILE OF cTnI DISTRIBUTION IN A REFERENCE POPULATION, HAS BEEN CONFIRMED THE DECISION THRESHOLD FOR [place] DIAGNOSIS. Performed By: #### B LDCX1 #### [facility] [address] [place] [address] Dr. Kayley [place] ROD 48 ng/mL Normal 9-[address] [facility] Comment on above: Performed By: #### B LDCX1 #### [facility] [address] [place] [address] Dr. Kayley [place] CBC AUTO DIFFon 12-14-2021 BASO # 0.1 103/ul Normal 0.0-0.[address] [facility] Comment on above: Performed By: #### P RBC #### [facility] [address] [place] [address] Dr. Kayley [place] Basophils/100 WBC (Bld) 0.9 % Normal 0.2-2.0 [facility] Comment on above: Performed By: #### P RBC #### [facility] [address] [place] [address] Dr. Kayley [place] EO # 0.1 103/ul Normal 0.0-0.[address] [facility] Comment on above: Performed By: #### P RBC #### [facility] [address] [place] [address] Dr. Kayley [place] Eosinophils/100 WBC (Bld) 0.5 % Critically low 0.9-7.[address] [facility] Comment on above: Performed By: #### P RBC #### [facility] [address] [place] [address] Dr. Kayley [place] Erythrocyte distribution width (RBC) [Ratio] 15.4 % Critically high 11.0-15.[address] [facility] Comment on above: Performed By: #### P RBC #### [facility] [address] [place] [address] Dr. Kayley [place] Hematocrit (Bld) [Volume fraction] 29.3 % Critically low 36.0-48.[address] [facility] Comment on above: Performed By: #### P RBC #### [facility] [address] [address] [address] Kayley [place] Hemoglobin (Bld) [Mass/Vol] 8.3 g/dL Critically low 12.0-16.[address] [facility] Comment on above: Performed By: #### P RBC #### [facility] [address] [address] [address] Kayley [place] IG # 0.05 10e3/ul Critically high 0.00-0.03 [facility] Comment on above: Performed By: #### P RBC #### [facility] [address] [place] [address] Dr. Kayley [place] IG % 0.4 % Normal 0.0-0.5 [facility] Comment on above: Performed By: #### P RBC #### [facility] [address] [place] [address] Dr. Kayley [place] LYMPH # 1.2 103/ul Normal 1.2-3.8 [facility] Comment on above: Performed By: #### P RBC #### [facility] [address] [place] [address] Dr. Kayley [place] Lymphocytes/100 WBC (Bld) 10.6 % Critically low 20.5-60.0 [facility] Comment on above: Performed By: #### P RBC #### [facility] [address] [place] [address] Dr. Kayley [place] MANUAL DIFF REQ NO Normal [facility] Comment on above: Performed By: #### P RBC #### [facility] [address] [place] [address] Dr. Kayley [place] MCH (RBC) [Entitic mass] 21.4 pg Critically low 26.7-34.[address] [facility] Comment on above: Performed By: #### P RBC #### [facility] [address] [place] [address] Dr. Kayley [place] MCHC (RBC) [Mass/Vol] 28.3 g/dL Critically low 29.9-35.[address] [facility] Comment on above: Performed By: #### P RBC #### [facility] [address] [place] [address] Dr. Kayley [place] MCV (RBC) [Entitic vol] 75.5 fL Critically low 81.0-99.0 [facility] Comment on above: Performed By: #### P RBC #### [facility] [address] [place] [address] Dr. Kayley [place] MONO # 0.9 103/ul Critically high 0.3-0.8 [facility] Comment on above: Performed By: #### P RBC #### [facility] [address] [address] [address] Kayley [place] Monocytes/100 WBC (Bld) 7.6 % Normal 1.7-12.0 [facility] Comment on above: Performed By: #### P RBC #### [facility] [address] [place] [address] Dr. Kayley [place] NEUT # 9.2 103/ul Critically high 1.4-6.5 [facility] Comment on above: Performed By: #### P RBC #### [facility] [address] [place] [address] Dr. Kayley [place] Neutrophils/100 WBC (Bld) 80.0 % Critically high 43.0-75.0 [facility] Comment on above: Performed By: #### P RBC #### [facility] [address] [place] [address] Dr. Kayley [place] Platelet mean volume (Bld) [Entitic vol] 9.3 fL Critically low 9.5-13.[address] [facility] Comment on above: Performed By: #### P RBC #### [facility] [address] [place] [address] Dr. Kayley [place] PLT 498 103/ul Critically high 150-450 [facility] Comment on above: Performed By: #### P RBC #### [facility] [address] [place] [address] Dr. Kayley [place] RBC 3.88 106/ul Critically low 4.20-5.40 [facility] Comment on above: Performed By: #### P RBC #### [facility] [address] [place] [address] Dr. Kayley [place] WBC 11.5 103/ul Critically high 4.0-11.0 [facility] Comment on above: Performed By: #### P RBC #### [facility] [address] [place] [address] Dr. Kayley [place] ER URINE PROFILEon 2 Bilirubin Ql (U) Negative Normal NEGATIVE [facility] Comment on above: Performed By: #### H GBHCT #### [facility] [address] [place] [address] Dr. Kayley [place] Clarity (U) CLEAR Normal CLEAR [facility] Comment on above: Performed By: #### H GBHCT #### [facility] [address] [place] [address] Dr. Kayley [place] Color (U) LT. YELLOW Normal YELLOW [facility] Comment on above: Performed By: #### H GBHCT #### [facility] [address] [place] [address] Dr. Kayley AZARBetsey A micrscopic examination will be performed if indicated. Normal [facility] Comment on above: Performed By: #### H GBHCT #### [facility] [address] [place] [address] Dr. Kayley [place] Glucose Ql (U) Negative Normal NEGATIVE [facility] Comment on above: Performed By: #### H GBHCT #### [facility] [address] [place] [address] Dr. Kayley [place] Hemoglobin Ql (U) TRACE-INTACT Abnormal NEGATIVE [facility] Comment on above: Performed By: #### H GBHCT #### [facility] [address] [place] [address] Dr. Kayley [place] Ketones Ql (U) Negative Normal NEGATIVE [facility] Comment on above: Performed By: #### H GBHCT #### [facility] [address] [place] [address] Dr. Kayley [place] LEUKOCYTES Negative Normal NEGATIVE [facility] Comment on above: Performed By: #### H GBHCT #### [facility] [address] [place] [address] Dr. Kayley [place] Nitrite Ql (U) Negative Normal NEGATIVE [facility] Comment on above: Performed By: #### H GBHCT #### [facility] [address] [place] [address] Dr. Kayley [place] pH (U) 6.5 [pH] Normal 5-9 [facility] Comment on above: Performed By: #### H GBHCT #### [facility] [address] [place] [address] Dr. Kayley [place] SPEC GRAVITY 1.015 Normal 1.005-<=1.025 [facility] Comment on above: Performed By: #### H GBHCT #### [facility] [address] [place] [address] Dr. Kayley [place] UA PROTEIN Negative Normal NEGATIVE/ TRACE [facility] Comment on above: Performed By: #### H GBHCT #### [facility] [address] [place] [address] Dr. Kayley [place] UR MICRO IND INDICATED Normal [facility] Comment on above: Performed By: #### H GBHCT #### [facility] [address] [place] [address] Dr. Kayley [place] Urobilinogen Qn (U) 0.2 {Lu'U}/dL Normal 0.2 - 1. 0 [facility] Comment on above: Performed By: #### H GBHCT #### [facility] [address] [place] [address] Dr. Kayley [place] PROF 14(COMP METB)on 022 Albumin [Mass/Vol] 3.2 g/dL Critically low 3.4-5.0 [facility] Comment on above: Performed By: #### B LDCX1 #### [facility] [address] [place] [address] Dr. Kayley [place] Albumin/Globulin [Mass ratio] 0.8 {ratio} Normal [facility] Comment on above: Performed By: #### B LDCX1 #### [facility] [address] [place] [address] Dr. Kayley [place] ALP [Catalytic activity/Vol] 72 U/L Normal 46-116 [facility] Comment on above: Performed By: #### B LDCX1 #### [facility] [address] [place] [address] Dr. Kayley [place] ALT [Catalytic activity/Vol] 24 U/L Normal 14-59 [facility] Comment on above: Performed By: #### B LDCX1 #### [facility] [address] [place] [address] Dr. Kayley [place] Anion gap [Moles/Vol] 13.0 mmol/L Normal [facility] Comment on above: Performed By: #### B LDCX1 #### [facility] [address] [place] [address] Dr. Kayley [place] AST [Catalytic activity/Vol] 18 U/L Normal 15-37 [facility] Comment on above: Performed By: #### B LDCX1 #### [facility] [address] [place] [address] Dr. Kayley [place] Bilirubin [Mass/Vol] 0.3 mg/dL Normal 0.2-1.0 [facility] Comment on above: Performed By: #### B LDCX1 #### [facility] [address] [place] [address] Dr. Kayley [place] Calcium [Mass/Vol] 9.9 mg/dL Normal 8.5-10.1 [facility] Comment on above: Performed By: #### B LDCX1 #### [facility] [address] [place] [address] Dr. Kayley [place] Chloride [Moles/Vol] 98 mmol/L Normal 98-107 [facility] Comment on above: Performed By: #### B LDCX1 #### [facility] [address] [place] [address] Dr. Kayley [place] CO2 [Moles/Vol] 29.8 mmol/L Normal 21.0-32.0 [facility] Comment on above: Performed By: #### B LDCX1 #### [facility] [address] [place] [address] Dr. Kayley [place] Creatinine [Mass/Vol] 1.23 mg/dL Critically high 0.55-1.02 [facility] Comment on above: Performed By: #### B LDCX1 #### [facility] [address] [address] [address] Kayley [place] EGFR-AF LAO 53 mL/min/1.73m2 Critically low >=60 [facility] Comment on above: Performed By: #### B LDCX1 #### [facility] [address] [place] [address] Dr. Kayley [place] EGFR-NON AF LAO 44 mL/min/1.73m2 Critically low >=60 [facility] Comment on above: Performed By: #### B LDCX1 #### [facility] [address] [place] [address] Dr. Kayley [place] Globulin (S) [Mass/Vol] 3.9 g/dL Normal [facility] Comment on above: Performed By: #### B LDCX1 #### [facility] [address] [place] [address] Dr. Kayley [place] Glucose [Mass/Vol] 160 mg/dL Critically high 74-106 [facility] Comment on above: Performed By: #### B LDCX1 #### [facility] [address] [place] [address] Dr. Kayley [place] Potassium [Moles/Vol] 3.8 mmol/L Normal 3.5-5.1 [facility] Comment on above: Performed By: #### B LDCX1 #### [facility] [address] [place] [address] Dr. Kayley [place] Protein [Mass/Vol] 7.1 g/dL Normal 6.4-8.2 [facility] Comment on above: Performed By: #### B LDCX1 #### [facility] [address] [place] [address] Dr. Kayley [place] Sodium [Moles/Vol] 137 mmol/L Normal 136-145 [facility] Comment on above: Performed By: #### B LDCX1 #### [facility] [address] [place] [address] Dr. Kayley [place] Urea nitrogen [Mass/Vol] 20.0 mg/dL Critically high 7.0-18.0 [facility] Comment on above: Performed By: #### B LDCX1 #### [facility] [address] [place] [address] Dr. Kayley [place] Urea nitrogen/Creatinine [Mass ratio] 16.3 mg/mg Normal [facility] Comment on above: Performed By: #### B LDCX1 #### [facility] [address] [place] [address] Dr. Kayley [place] TROPONIN, HIGH SENSITIVITYon 12-14-2021 HSTROP 11.3 pg/mL Normal 4.0-51.[address] [facility] Comment on above: Result Comment: CUT- OFF POINTS HAVE BEEN ESTABLISHED BASED ON THE FOURTH UNIVERSAL DEFINITIONS OF MYOCARDIAL INFARCTION. THE UPPER REFERENCE LIMIT (URL) OF TROPONIN, DEFINED THE 99TH PERCENTILE OF cTnI DISTRIBUTION IN A REFERENCE POPULATION, HAS BEEN CONFIRMED THE DECISION THRESHOLD FOR [place] DIAGNOSIS. Performed By: #### P RTELEC #### [facility] [address] [place] [address] Dr. Kayley [place] URINE MICROSCOPIC ONLYon BACTERIA NONE SEEN Normal NONE SEEN [facility] Comment on above: Performed By: #### H GBHCT #### [facility] [address] [place] [address] Dr. Kayley [place] Bacteria identified Cx Nom (U) NOT INDICATED Normal [facility] Comment on above: Performed By: #### H GBHCT #### [facility] [address] [place] [address] Dr. Kayley [place]field CAST SEEN Abnormal NONE SEEN [facility] Comment on above: Performed By: #### H GBHCT #### [facility] [address] [place] [address] Dr. Kayley [place]field Crystals LM Nom (Urine sed) NONE SEEN Normal NONE SEEN [facility] Comment on above: Performed By: #### H GBHCT #### [facility] [address] [place] [address] Dr. Kayley [place]field Epithelial cells LM Ql (Urine sed) FEW Abnormal NONE SEEN /RARE [facility] Comment on above: Performed By: #### H GBHCT #### [facility] [address] [address] [address] Kayley [place] HYALINE CAST RARE Normal [facility] Comment on above: Performed By: #### H GBHCT #### [facility] [address] [address] [address] Kayley [place]field MUCOUS NONE SEEN Normal NONE SEEN [facility] Comment on above: Performed By: #### H GBHCT #### [facility] [address] [address] [address] Kayley [place] RBC 0-2 Normal 0-2 [facility] Comment on above: Performed By: #### H GBHCT #### [facility] [address] [address] [address] Kayley [place]field WBC 0-2 Abnormal NONE SEEN [facility] Comment on above: Performed By: #### H GBHCT #### [facility] [address] [place] [address] Dr. Kayley Hatfield XR CHEST 1 Von [...] ASAEL MALDONADO Date: 2021-12-14 13:[address] [facility] BUNon 12-12-2021 Urea nitrogen [Mass/Vol] 15.0 mg/dL Normal 7.0-18.0 [facility] Comment on above: Performed By: #### P RBC #### [facility] [address] [place] [address] Dr. Kayley Hatfield CALCIUMon 12-12-2021 Calcium [Mass/Vol] 9.1 mg/dL Normal 8.5-10.1 [facility] Comment on above: Performed By: #### C VDTBH #### [facility] [address] [place] [address] Dr. Kayley Hatfield CREATININEon 12-12-2021 Creatinine [Mass/Vol] 1.05 mg/dL Critically high 0.55-1.02 [facility] Comment on above: Performed By: #### P RBC #### [facility] [address] [place] [address] Dr. Kayley [place] EGFR-AF LAO >60 Normal >=60 [facility] Comment on above: Performed By: #### P RBC #### [facility] [address] [place] [address] Dr. Kayley Hatfield EGFR-NON AF LAO 53 mL/min/1.73m2 Critically low >=60 [facility] Comment on above: Performed By: #### P RBC #### [facility] [address] [place] [address] Dr. Kayley Hatfield CRPon 12-12-2021 CRP [Mass/Vol] mg/L Normal <=1.0 [facility] Comment on above: Performed By: #### P RBC #### [facility] [address] [place] [address] Dr. Kayley Hatfield MAGNESIUMon 12-12-2021 Magnesium [Mass/Vol] 1.9 mg/dL Normal 1.8-2.[address] [facility] Comment on above: Performed By: #### C VDTBH #### [facility] [address] [place] [address] Dr. Kayley Hatfield PHOSPHORUSon 12-12-2021 Phosphate [Mass/Vol] 4.1 mg/dL Normal 2.6-4.7 [facility] Comment on above: Performed By: #### C VDTBH #### [facility] [address] [place] [address] Dr. Kayley Hatfield SED RATE JEFFERSONERGREN 2021 SED RATE 35 mm/hr Critically high <=30 [facility] Comment on above: Performed By: #### P RTELEC #### [facility] [address] [address] [address] Kayley Hatfield Vital Signs Date Time Vital Sign Value Performing Clinician Faci lity 06-26-2023 15:27-0500 Diastolic blood pressure 103 mm[Hg] MD Erasto Burroughs Work Phone: [facility] 06-26-2023 15:27-0500 Heart rate 81 /min MD Erasto Burroughs Work Phone: [facility] 06-26-2023 15:27-0500 Respiratory rate 18 /min MD Erasto Burroughs Work Phone: [facility] 06-26-2023 15:27-0500 SaO2% (BldA) [Mass fraction] 95 % MD Erasto Burroughs Work Phone: [facility] 06-26-2023 15:27-0500 Systolic blood pressure 162 mm[Hg] MD Erasto Burroughs Work Phone: [facility] 06-26-2023 13:44-0500 Body height 162.56 cm MD Erasto Burroughs Work Phone: [facility] 06-26-2023 13:44-0500 Body weight 59.87 kg MD Erasto Burroughs Work Phone: [facility] 06-26-2023 13:44-0500 Inhaled oxygen flow rate 2 L/min MD Erasto Burroughs Work Phone: [facility] Encounters Encounter Date Encounter Type Care Provider Facility Start: 11-10-2024 ambulatory Ihsan Smiley ty:[facility] Start: 06-07-2024 End: 06-10-2024 Clinisync Result Encounter Shaikh Rick SALDIVAR Work Phone: [facility] Unsolicited Start: 06-07-2024 End: 06-10-2024 Clinisync Result Encounter Shaikh Rick SALDIVAR Work Phone: [facility] Unsolicited Start: 06-06-2024 End: 06-09-2024 Clinisync Result Encounter Generic External Data Provider [facility] Unsolicited Start: 06-06-2024 End: 06-09-2024 Clinisync Result Encounter Generic External Data Provider [facility] Unsolicited Start: 05-12-2024 End: 05-12-2024 ambulatory Ihsan Torri BROWN Facility:[facility] Start: 04-29-2024 End: 04-30-2024 Refill Erasto Burroughs MD Work Phone: [facility] Comment on above: DDD (degenerative di sc disease), lumbar Start: 02-21-2024 End: 02-21-2024 ambulatory ERASTO BURROUGHS Not Available Start: 01-07-2024 End: 01-07-2024 ambulatory [facility] Start: 11-09-2023 End: 11-09-2023 ambulatory Ihsanchris BROWN Facility:[facility] Start: 08-18-2023 Refill Erasto Leggett Work Phone: [facility] Comment on above: DDD (degenerative di sc disease), lumbar (Primary Dx) Start: 06-27-2023 ambulatory [facility] Start: 06-26-2023 End: 06-26-2023 ambulatory Remy Givens Facility:[facility] Start: 06-26-2023 End: 06-26-2023 Admission to same day surgery center MD Erasto Burroughs Work Phone: [facility] Work Phone: Start: 06-26-2023 End: 06-26-2023 ambulatory MD Erasto Burroughs Work Phone: [facility] Work Phone: Start: 06-14-2023 End: 06-14-2023 ambulatory SHAIKH RICK Not Available Start: 06-05-2023 Evaluation and management of inpatient KONG BEAULIEU [facility] Start: 06-05-2023 Evaluation and management of inpatient BONITA CRANE [facility] Start: 06-05-2023 Evaluation and management of inpatient BONITA CRANE [facility] Start: 06-04-2023 End: 06-06-2023 Evaluation and management of inpatient AVINASH SERRANO [facility] Start: 05-15-2023 ambulatory Iman Jeter Facility:[facility] Start: 10-31-2022 End: 11-01-[address] ERASTO BURROUGHS Facility:[facility] Start: 10-10-2022 End: 10-11-[address] ERASTO BURROUGHS Facility:[facility] Start: 05-01-2022 End: 05-02-[address] ERASTO BURROUGHS Facility:[facility] Start: 05-01-[address] ERASTO BURROUGHS Facil ity:[facility] Start: 04-25-2022 End: 04-26-[address] ERASTO BURROUGHS Facility:[facility] Start: 04-04-2022 Encounter for genera l adult medical examination without abnormal findings DR ERASTO BURROUGHS [facility] Start: 03-30-[address] EARSTO BURROUGHS Facil ity:[facility] Start: 03-29-2022 Encounter for genera l adult medical examination without abnormal findings DR ERASTO BURROUGHS [facility] Start: 03-28-2022 End: 03-30-2022 Evaluation and management of inpatient DR ERASTO BURROUGHS Facility:[facility] Start: 03-28-2022 End: 03-29-[address] ERASTO BURROUGHS Facility:[facility] Start: 03-28-2022 End: 03-29-2022 Encounter for general adult medical examination without abnormal findings DR ERASTO BURROUGHS Facility:[facility] Start: 03-08-2022 End: 03-15-2022 Evaluation and management of inpatient IMAN WILLIS Facility:[facility] Start: 03-06-2022 End: 03-08-2022 Evaluation and management of inpatient DR ERASTO BURROUGHS Facility:[facility] Start: 12-22-2021 End: 12-23-[address] ERASTO BURROUGHS Facility:[facility] Start: 12-14-2021 End: 12-14-[address] ERASTO BURROUGHS Facility:[facility] Start: 12-12-2021 End: 12-13-[address] ERASTO BURROUGHS Facility:[facility] Procedures Date Procedure Procedure Detail Performing Clinician Start: 06-07-2024 Bacteria identified in Urine by Culture Shaikh Rick SALDIVAR Work Phone: Start: 06-06-2024 BLOOD CULTURE 2 Generic External Data Provider Start: 06-06-2024 BLOOD CULTURE 1 Generic External Data Provider Start: 06-26-2023 Esophagogastroduodenoscopy MD Erasto dobson Work Phone: Start: 03-29-2022 Change Drainage Device [...] Screening for malign ant neoplasm of colon [facility] Start: 04-15-2026 Glaucoma screening Diabetes: R etinopathy Screening [facility] Start: 09-08-2024 Hemoglobin A1c measurement Diabetes: Hemoglobin A1C [facility] Start: 06-06-2024 Urine screening for protein Diabetes: Urine Protein Screening [facility] Start: 05-27-2024 End: 05-27-2024 Patient encounter procedure 05/27/2024 1:30 PM EST Office Visit [facility] [address] [place] [phone] Erasto Burroughs MD [address] [place] [phone] [facility] Start: 03-09-2024 Influenza vaccination Influenza Vacc ine (#1) [facility] Start: 09-05-2023 Hemoglobin A1c measurement Diabetes: Hemoglobin A1C [facility] Start: 08-27-2023 End: 08-27-2023 Patient encounter procedure 08/27/2023 2:30 PM EST Office Visit [facility] [address] [place] [phone] Erasto Burroughs MD [address] [place] [phone] [facility] Start: 06-26-2023 [facility] Start: 03-09-2023 Influenza vaccination Influenza Vacc ine (#1) [facility] Start: 1997 Screening for malign ant neoplasm of breast Mammogram [facility] Start: 1976 Urine screening for protein Diabetes: Urine Protein Screening [facility] Start: 1967 Glaucoma screening Diabetes: R etinopathy Screening [facility] Start: 1957 Screening for malign ant neoplasm of colon [facility] BLOOD CULTURE 1 BLOOD CULTURE 1 Lab Routine 06/06/2024 10:14 AM EST [facility] BLOOD CULTURE 2 BLOOD CULTURE 2 Lab Routine 06/06/2024 10:21 AM EST [facility] Patient Education Esophageal Dilation [facility] Work Phone: Payers Date Payer Category Payer Medicare [id number] 2023 Self-pay [id number] 2022 Private Health Insurance [facility] [id number] 2022 Unknown [employer] [id number] 2022-Present [phone] [address] [address] [place] [address] [id number]. [id number] 2013 Medicare [id number] 1.13.693. [id number] 1959 Medicare [id number] 1959 Unknown [id number] 1959 Unknown [id number] 1957 Unknown [id number] 2.16.840.1.607149.3.579. 2.647 1957 Unknown [id number] 2.16.840.1.211008.3.579. 2.593 1957 Unknown [id number] 2.16.840.1.212971.3.579. 2.593 1957 Unknown [id number] 2.16.840.1.058255.3.579. 2.593 1957 Unknown [id number] 2.16.840.1.906060.3.579. 2.593 1957 Unknown [id number] 2.16.840.1.050360.3.579. 2.593 1957 Unknown [id number] 2.16.840.1.111257.3.579. 2.593 1957 Unknown [id number] 2.16.840.1.381407.3.579. 2.593 1957 Unknown [id number] 2.16.840.1.568711.3.579. 2.593 1957 Unknown [id number] 2.16.840.1.441654.3.579. 2.593 1957 Unknown [id number] 2.16.840.1.426560.3.579. 2.593 1957 Unknown [id number] 2.16.840.1.211515.3.579. 2.593 1957 Unknown [id number] 2.16.840.1.638476.3.579. 2.593 1957 Unknown [id number] 2.16.840.1.643542.3.579. 2.593 1957 Unknown [id number] 2.16.840.1.707537.3.579. 2.1259 1957 Unknown [id number] 2.16.840.1.105695.3.579. 2.1259 1957 Unknown [id number] 2.16.840.1.823939.3.579. 2.727 1957 Unknown [id number] 2.16.840.1.730330.3.579. 2.727 1957 Unknown [id number] 2.16.840.1.357900.3.579. 2.727 1957 Unknown [id number] 2.16.840.1.138164.3.579. 2.727 Unknown [id number] 2.16.840.1.142040.3.579. 2.531 Social History Date Type Detail Facility Start: 06-14-2023 End: 06-26-2023 Tobacco smoking status AKIS Ex-smoker (finding) [facility] Start: 1955 Sex Assigned At Female F [facility] Start: 03-06-1982 End: 03-06-2022 History of tobacco use Current smoker [facility] Start: 03-06-1982 End: 03-06-2022 History of tobacco use Cigarette Smoker [facility] Start: 06-14-2023 End: 02-21-2024 Cigarettes smoked current (pack per day) - Reported 2 [facility] Start: 06-14-2023 Tobacco use and exposure Smokeless tobacco non-user [facility] Start: 06-14-2023 End: 02-21-2024 Alcohol intake Ex-drinker (finding) [facility] Start: 06-14-2023 End: 02-21-2024 Tobacco use panel [facility] Start: 06-14-2023 [...] including vitamins, herbs, eye drops, creams, and xghy-ebh-ydwvtfa medicines. ??? Any problems you or family [...] your provider tells you to. ??? Taking ctvu-rhe-djzlhha medicines, vitamins, herbs, and supplements. General instructions [...] these instructions at home: Medicines ??? Take bzwm-vxf-jyfjzhm and prescription medicines only as told by [...] to prevent or treat constipation: ? Take ylfx-pfk-sdbwfto or prescription medicines. ? Eat foods that [...] soft tube (catheter) (more content not included)... [facility] 01-07-2024 Note [place] [facility] Subjective Lise Canales is a 68 y.o. year old female patient being seen for 6 mo follow up CAD and hypertension. She was admitted to [facility] 2 weeks ago for severe sepsis [...] Prior additional history: She was admitted to [facility] in 10/2017 with sudden onset symptoms [...] smoking. On 06/04/2023 she was admitted to [facility] transferred from the [facility] due to pneumonia. In that setting she was found to have minimally elevated troponin. Her echocardiogram and EKG were nonrevealing. She was discharged on medical therapy. In December 2023 she was admitted to the [facility] with pneumonia and sepsis. In that setting [...] distress. Breath (more content not included)... [facility] 06-27-2023 Note [place] [facility] Subjective Lise Easton Covert is a 68 y.o. year old female patient being seen for follow up [facility] for NSTEMI. 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 On 06/04/2023 she was admitted to [facility] transferred from the [facility] due to pneumonia. In that setting she [...] normal. All (more content not included)... [facility] 06-26-2023 Procedure note [facility] 06-06-2023 Note Hospital Medicine Discharge Summary Final Discharge Diagnosis: Community acquired pneumonia of right lower lobe of lung Admission Diagnosis: NSTEMI (non-ST elevated myocardial infarction) (CMS/[facility]) [I21.4] Hospital course: 68 years old female lady with a medical history of hypertension, hyperlipidemia, gastroesophageal reflux disease, carotid disease, fibromyalgia, arthritis, polymyalgia rheumatica, COPD, temporal arteritis, and psoriasis. Came into the [facility] ER as a transfer from [facility] for concern of chest pain and non-STEMI. [...] Center 06/27/2023 3:45 PM Jer Neff MD [facility] Your medication list START taking [...] HYDROcodone-acetaminophen 5-325 mg tablet Commonly known as: [place] melatonin 5 mg tablet metoprolol tartrate 25 [...] Your Medications These medications were sent to [id number] - [place], [place] - [address] [facility] [address] [facility] [facility] [address] [facility] [phone] cefdinir 300 mg capsule doxycycline 100 mg capsule Lise is allergic to azithromycin and latex. Disposition: Home-Health Care [facility] Discharge Condition: Stable Code Status: Prior Diagnostic Results Hematology: Results from last 7 days Lab Units 06/06/23 0547 06/05/23 0303 06/05/23 030 WBC AUTO 10*3/uL 10.31 -- 17.28* [...] Lungs: C (more content not included)... 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 06-05-2023 Note 06/05/23 1505 Admission Assessment [...] Yes Does the patient have a case hardener assigned to them through their insurance? Yes [...] and activate MyChart? MyChart already active [facility] 06-05-2023 Note . Hospital Medicine History and Physical 06/05/2023 1:22 AM THE HOSPITALIST TEAM PREFERS TO USE [employer] CHAT FOR COMMUNICATION 7AM-7PM. IF I DO NOT RESPOND WITHIN 15 MINUTES, PLEASE PAGE ME/CALL THROUGH THE FURNITURE ASSEMBLER AND INSTALLER. FROM 7PM-7AM, PLEASE PAGE [phone](COVR) Chief Complaint No chief complaint on file. History of Present Illness Lise Canales is an 68 y.o. female who came from home with NSTEMi. This is a 68 years old female lady with a medical history of hypertension, hyperlipidemia, gastroesophageal reflux disease, carotid disease, fibromyalgia, arthritis, polymyalgia rheumatica, COPD, temporal arteritis, and psoriasis. Came into the [facility] ER as a transfer from [facility] for concern of chest pain and non-STEMI. [...] Date Noted NSTEMI (non-ST elevated myocardial infarction) ([facility]) 06/05/2023 Acute on chronic respiratory failure with hypoxia ([facility]) 04/01/2022 Anemia, unspecified 04/01/2022 Recurrent spontaneous pneumothorax 03/30/2022 Giant cell arteritis with polymyalgia rheumatica ([facility]) 10/11/2021 Pneumothorax on left 08/02/2016 Coronary atherosclerosis 06/15/2014 Dyslipidemia 06/15/2014 Status post percutaneous transluminal coronary angioplasty 06/15/2014 Angina pectoris ([facility]) 05/04/2014 Electrocardiogram abnormal 05/04/2014 Abdominal pain 04/24/2014 Altered mental status 04/24/2014 Benign essential hypertension 04/24/2014 Congestive heart failure ([facility]) 04/24/2014 Dyspnea 04/24/2014 Gastroesophageal reflux disease 04/24/2014 History of psychiatric disorder 04/24/2014 Hyperlipidemia 04/24/2014 Headache 04/24/2014 Raynaud's disease 04/24/2014 Other and unspecified noninfectious gastroenteritis and colitis(558.9) 05/15/2007 Candidiasis of mouth 04/17/2007 COPD (chronic obstructive pulmonary disease) ([facility]) 04/17/2007 Diarrhea 04/17/2007 Loss of weight 04/17/2007 Other psoriasis 04/17/2007 Psoriatic arthropathy ([facility]) 04/17/2007 Other pneumothorax 03/30/2022 Assessment and Plan [...] 92 -Scheduled (more content not included)... [facility] 03-15-2022 Note MR#: [id number] [facility] Pt. Name: LizztLise Admitted: 03/08/2022 Discharged: 03/15/2022 [...] a 66-year-old female, who presented to the [facility] with shortness of breath and fatigue, past [...] The patient was subsequently transferred to for [facility] for further workup, was admitted [...] Penn MD Date Trans: 03/15/2022 04:48 P/mmo [id number] cc: Erasto Burroughs M.D. [address] [facility] [address] [facility] 03-13-2022 Note MR#: [id number] [facility] Pt. Name: Lise Canales Admitted: 03/08/2022 [...] Pineda MD Date Trans: 03/13/2022 10:30 A/gabriela [id number] cc: Erasto Burruoghs M.D. [address] [facility] [address] [facility] 03-09-2022 Note MR#: [id number] [facility] Pt. Name: Lise Canales Admitted: 03/05/2020 [...] gastritis, Helicobacter pylori infection, who presented to [facility] Emergency Department complaining of sudden [...] [facility] that she was drug seeking and [...] with the primary care provider through [facility] for close followup for her anxiety [...] 2 to 4 weeks. Follow up at [facility] on 03/16/2022 at 9:50 a.m. [...] from me. Date Dict: 03/08/2022/03:04 P/Paulette Mccord, COMPENSATION ANALYST Date Trans: 03/09/2022 11:21 A/mmo [id number] cc: Marti Poole M.D. [address] [place] [phone] Erasto Burroughs M.D. [address] [facility] [address] [facility] Evaluation note No assessment inform ation available [facility] Work Phone: Evaluation note Diagnosis [...] HealthcareHistory and physical note Author Remy Givens [facility] June 26, 2023 2:44pm Note Date/Time June 26, 2023 2:44pm [facility] [address] [place] [address] Gastroenterology H&P Signed Patient: Lise Canales MR#: [id number] : 1955 Acct:[id number] Age/Sex: 68 / F Adm Date: 3 Loc: Room: Type: [facility] Attending Dr: Remy Givens MD Copies [...] <Electronically signed by Remy Givens MD> 06/26/23 1448 [facility] Work Phone: Hospital Discharge instructions Additional [...] problems. -Follow up with PCP. -Office number [phone].[facility] Work Phone: Summary Purpose Family History Relationship Condition Age at Onset Recorded Date/T enrique father Cerebrovascular accident (CVA) Unknown Advance Directives Advance Directive Response Recorded Date/ Time Advance Directives No November 09, 2017 7:38am Chief Complaint and Reason for Visit Chief Complaint Esophageal Dysmotili ty Additional Source Comments INFORMATION SOURCE (unrecogn ized section and content) DATE CREATED AUTHOR 04/11/2022 [facility] DATE CREATED AUTHOR AUTHOR'S ORGANIZ ATION 11/04/2022 [facility] DATE CREATED AUTHOR AUTHOR'S ORGANIZ ATION 07/10/2023 [facility] DATE CREATED AUTHOR AUTHOR'S ORGANIZ ATION 02/14/2024 [facility] DATE CREATED AUTHOR AUTHOR'S ORGANIZ ATION 02/23/2024 [facility] DATE CREATED AUTHOR AUTHOR'S ORGANIZ ATION 05/13/2024 [facility] Care Teams (unrecognized sec tion and content) Team Status: Active Member Role Status Dates Erasto Burroughs MD Primary Care Provider Active Team Status: Inactive Member Role Status Dates Erasto Burroughs MD Primary Care Provider Active Remy Givens MD Attending Provider Active Supervisor Diagnostic Relationship Specialty Start Date End Date Erasto Burroughs MD PCP - General Family Medicine 07/09/22 Supervisor Diagnostic Relationship Specialty Start Date End Date Erasto Burroughs MD [address] [place] [phone] PCP - General Family Medicine 02/21/24 Supervisor Diagnostic Relationship Specialty Start Date End Date Erasto Burroughs MD [address] [place] [phone] PCP - General Family Medicine 02/21/24 Supervisor Diagnostic Relationship Specialty Start Date End Date Erasto Burroughs MD [address] [place] [phone] PCP - General Family Medicine 02/21/24 Reason [...] BE BASED ON THE PRIMARY CLINICAL RECORDS. [email or web address] [facility]. provides no warranty or guarantee of the accuracy or completeness of information in this document.
[2024-06-26] MEDS: DOXYCYCLINE HYCLATE 100 MG in 0.9 % SODIUM CHLORIDE 100 ML IV (15:04)
--- NOTE | 2024-06-26 15:27 | PM.HP ---
HPI H&P: HPI History of Present Illness Chief complaint: SOB COPD EXACERBATION Narrative: patient is a 69-year-old female Medical history of oxygen dependent (2L NC at night time) chronic obstructive pulmonary disease, non insulin dependent type 2 diabetes, history of urethral strictures causing recurrent urinary tract infections, hyperlipidemia, insomnia, hypertension, depression and GERD. Who presented to the ER with increased shortness of breath, and tachycardia. She was evaluated by her PCP earlier today. She was last seen in this ER on 06/06/24 for COPD exacerbation and was treated with recent prednisone and levaquin x 7 days for RLL pneumonia. ER findings: CXR shows improving RLL pneumonia; WBC's 14, Hb 15.3, D-dimer 0.23, Cr 1.55, lactate 1.8, Trop 11; patient is currently saturating 95% on room air, HR 109; patient admitted for RLL pneumonia and copd exacerbation. This morning patient reports improvement in her symptoms. NO fever, no shortness of breath. She rested well last night. No chest pain. Opioid HPI Opioid Management Most Recent Pain and Opioid Data: Last Pain Scale 6 06/26/24 18:27 06/26/24 Last Pain Intensity 0 03/06/23 15:53 03/06/23 Last Pain Assessment 06/27/24 10:08 Last ORT Total Score 0 06/26/24 18:23 06/26/24 Last ORT Risk Category Low Risk 06/26/24 18:23 06/26/24 Review of Systems ROS Narrative ROS: a complete review of systems were reviewed with patient and are positive as below or listed in History of Chief Complaint. General: no fever, chills, night sweats Head: no headache, trauma, visual changes, nausea or vomiting Skin: no reported rashes, itching or sores Eyes: no blurriness of vision Ears: no reported hearing loss, vertigo, earache, or tinnitus Throat: no sore throat, hoarseness, swelling of neck, or tongue pain Heart: no chest pain Lungs: shortness of breath, no cough GI: no diarrhea or vomiting/nausea Urinary: no urinary urgency, frequency or pain Neuro: no numbness or tingling HEM: no bleeding issues or bruising ENDO: no thyroid problems Psych: no anxiety or depression PFSH PFSH Medical History Right lower lobe pneumonia ?J18.9 - Pneumonia, unspecified organism (ICD-10) Acute pyelonephritis ?N10 - Acute pyelonephritis (ICD-10) Sepsis ?A41.9 - Sepsis, unspecified organism (ICD-10) Immunosuppressed status ?D84.9 - Immunodeficiency, unspecified (ICD-10) Chronic steroid use Temporal arteritis ?M31.6 - Other giant cell arteritis (ICD-10) CKD stage 3b, GFR 30-44 ml/min ?N18.32 - Chronic kidney disease, stage 3b (ICD-10) Chronic respiratory failure with hypoxia ?J96.11 - Chronic respiratory failure with hypoxia (ICD-10) History of tobacco abuse ?Z87.891 - Personal history of nicotine dependence (ICD-10) CAD (coronary artery disease) ?I25.10 - Atherosclerotic heart disease of [place] coronary artery without angina pectoris (ICD-10) Essential hypertension ?I10 - Essential (primary) hypertension (ICD-10) Type 2 diabetes mellitus with hyperglycemia ?E11.65 - Type 2 diabetes mellitus with hyperglycemia (ICD-10) Polymyalgia rheumatica ?M35.3 - Polymyalgia rheumatica (ICD-10) Non-ST elevated myocardial infarction (non-STEMI) ?I21.4 - Non-ST elevation (NSTEMI) myocardial infarction (ICD-10) Hyperlipidemia ?E78.5 - Hyperlipidemia, unspecified (ICD-10) Hyperglycemia, drug-induced ?R73.9 - Hyperglycemia, unspecified (ICD-10) ?T50.905A - Adverse effect of unspecified drugs, medicaments and biological substances, initial encounter (ICD-10) COPD (chronic obstructive pulmonary disease) ?J44.9 - Chronic obstructive pulmonary disease, unspecified (ICD-10) Depression ?F32.A - Depression, unspecified (ICD-10) Acid reflux ?K21.9 - Gastro-esophageal reflux disease without esophagitis (ICD-10) Nerve pain ?M79.2 - Neuralgia and neuritis, unspecified (ICD-10) Back pain ?M54.9 - Dorsalgia, unspecified (ICD-10) Thoracotomy scar of right chest ?L90.5 - Scar conditions and fibrosis of skin (ICD-10) History of oxygen administration ?Z99.81 - Dependence on supplemental oxygen (ICD-10) UTI (urinary tract infection), bacterial ?N39.0 - Urinary tract infection, site not specified (ICD-10) ?A49.9 - Bacterial infection, unspecified (ICD-10) Urethral stenosis Surgical History Status post bilateral cataract extraction ?Z98.41 - Cataract extraction status, right eye (ICD-10) ?Z98.42 - Cataract extraction status, left eye (ICD-10) 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 [part of] (ICD-10) Stented coronary artery ?Z95.5 - Presence of coronary angioplasty implant and graft (ICD-10) Family History Mother Family history of COPD (chronic obstructive pulmonary disease) Brother Family history of COPD (chronic obstructive pulmonary disease) Father Family history of COPD (chronic obstructive pulmonary disease) Family history of stroke Social History Within the past year, how often did you have a drink containing alcohol: never Within the past year, how many standard drinks containing alcohol did you have on a typical day: 1 or 2 Within the past year, how often did you have six or more drinks on one occasion: never Total score: 0 Score interpretation: A score less than 3 is consistent with normal alcohol consumption. Smoking status: Former smoker Non-prescribed substance use: denies use Previous occupational history: disabled Highest level of school completed/degree received: Associate degree: academic program Are you now , , , , never or living with a partner: Little interest or pleasure in doing things: not at all Feeling down, depressed, or hopeless: not at all Feel stressed/tense/nervous/anxious/difficulty sleeping: only a little Do you think of yourself as: straight/heterosexual Gender Identity: female Meds Home Medications and Allergies Home Medications ?Medication ?Instructions ?Recorded ?Confirmed ?Type aspirin 81 mg tablet,delayed 81 mg PO DAILY 03/06/23 06/26/24 History release atorvastatin 40 mg tablet 40 mg PO .QHS 03/06/23 06/26/24 History duloxetine 30 mg capsule,delayed 90 mg PO DAILY 03/06/23 06/26/24 History release eszopiclone 3 mg tablet (Lunesta) 3 mg PO .QHS PRN sleep 03/06/23 06/26/24 History melatonin 5 mg tablet 5 mg PO .QHS 03/06/23 06/26/24 History metoprolol tartrate 25 mg tablet 12.5 mg PO BID 03/06/23 06/26/24 History omeprazole 40 mg capsule,delayed 40 mg PO .BIDAC 03/06/23 06/26/24 History release pregabalin 100 mg capsule (Lyrica) 100 mg PO TID 03/06/23 06/26/24 History albuterol sulfate 90 mcg/actuation 2 puff inhalation Q4H PRN 12/18/23 06/26/24 History aerosol inhaler shortness of breath or wheezing guaifenesin 600 mg tablet, 1,200 mg PO BID 12/18/23 06/26/24 History extended release 12 hr cholecalciferol (vitamin D3) 50 50 mcg PO DAILY 02/14/24 06/26/24 History mcg (2,000 unit) capsule cranberry 500 mg capsule 500 mg PO DAILY 02/14/24 06/26/24 History ferrous sulfate 325 mg (65 mg 325 mg PO DAILY 02/14/24 06/26/24 History iron) tablet potassium chloride 20 mEq 20 meq PO DAILY PRN hypokalemia 02/14/24 06/26/24 History tablet,extended release estradiol 0.01% (0.1 mg/gram) 1 appful vaginal .QWK AT BEDTIME 06/06/24 06/26/24 History vaginal cream glipizide 5 mg tablet 5 mg PO DAILY 06/26/24 06/26/24 History Allergies Allergy/AdvReac Type Severity Reaction Status Date / Time azithromycin (From Zithromax Allergy Severe Unknown Verified 02/18/24 18:30 Z-Leonardo) Latex, Natural Rubber Allergy Severe Unknown Verified 02/18/24 18:30 Exam Narrative Exam Narrative: General: Patient is alert, and oriented to person, place and time with normal affect, proper hygiene Skin: no visible rashes, or ulcers Head: atraumatic, acephalic Eyes: PERRLA, no nystagmus present, conjunctiva clear, no scleral icterus Ears: normal gross auditory acuity Nose: symmetric, no discharge, no maxillary or frontal sinus tenderness Mouth/Throat: no erythema, exudate, or tonsillar enlargement, normal dentition Neck: no masses palpated, normal thyroid, no JVD or audible carotid bruits Heart: Normal rate and rhythm, no murmurs/rubs/gallops Lungs: no audible wheezes, crackles and normal breath sounds all lung conrad Abdomen: Normal audible bowel sounds, no distension, No palpable masses, no organomegaly, no rebound/guarding/ or rigidity Musculoskeletal: no swelling bilateral lower extremities Neuro: CN II-X grossly intact Constitutional Vital Signs, click to edit/add: Last Vital Signs Temp 97.8 F 06/26/24 12:07 Pulse 109 H 06/26/24 15:01 Resp 22 H 06/26/24 15:01 BP 143/94 H 06/26/24 15:00 Pulse Ox 95 06/26/24 15:01 O2 Del Method Room Air 06/26/24 13:59 Results Labs Labs: Short CBC 06/26/24 Range/Units 12:25 WBC 14.0 H (4.0-11.0) 10^3/uL Hgb 15.3 (12.0-16.0) g/dL Hct 47.9 (36.0-48.0) % Plt Count 383 (150-450) 10^3/uL BMP 06/26/24 12:25 Sodium 140 Potassium 3.8 Chloride 102 Carbon Dioxide 25.8 BUN 20.0 H Creatinine 1.55 H Glucose 155 H Calcium 10.4 H Liver Function 06/26/24 Range/Units 12:25 Total Bilirubin 0.5 (0.2-1.0) mg/dL AST 19 (15-37) U/L ALT 31 (14-59) U/L Alkaline Phosphatase 94 (46-116) U/L Albumin 3.6 (3.4-5.0) g/dL Assessment and Plan Assessment and Plan (1) COPD exacerbation: Assessment and Plan: continue doxycycline and placed on solumedrol 40mg q6 hours along with as needed nebs, pulmicort, OPEP. CXR shows resolving pneumonia, completed levaquin. no new/acute process on chest x-ray. not requiring oxygen therapy. Troponin, d-dimer and proBNP all normal range. (2) Right lower lobe pneumonia: Assessment and Plan: resolving. will treat with prednisone and doxycycline outpatient once discharged. Qualifiers: Pneumonia type: due to unspecified organism Qualified Code(s): J18.9 - Pneumonia, unspecified organism (3) CKD stage 3b, GFR 30-44 ml/min: Assessment and Plan: at baseline, 1.55 (4) History of tobacco abuse: (5) Essential hypertension: Assessment and Plan: continue metoprolol (6) Type 2 diabetes mellitus with hyperglycemia: Assessment and Plan: accuchecks qachs, SSI as needed. resume home meds at discharge. Qualifiers: Diabetes mellitus skilled nursing insulin use: without intermediate school teacher use Qualified Code(s): E11.65 - Type 2 diabetes mellitus with hyperglycemia (7) Hyperlipidemia: Assessment and Plan: continue atorvastatin Qualifiers: Hyperlipidemia type: mixed hyperlipidemia Qualified Code(s): E78.2 - Mixed hyperlipidemia (8) CAD (coronary artery disease): Assessment and Plan: continue aspirin and atorvastatin Qualifiers: Associated angina: without angina Coronary Disease-Associated Artery/Lesion type: [place] artery [place] vs. transplanted heart: [place] heart Qualified Code(s): I25.10 - Atherosclerotic heart disease of [place] coronary artery without angina pectoris (9) Depression: Assessment and Plan: continue cymbalta, lunesta Qualifiers: Depression Type: unspecified Qualified Code(s): F32.A - Depression, unspecified (10) Acid reflux: Assessment and Plan: continue omeprazole Qualifiers: Esophagitis presence: esophagitis presence not specified Qualified Code(s): K21.9 - Gastro-esophageal reflux disease without esophagitis Plan Patient is a full code continue Lovenox for dvt prophylaxis Patient in observation status and is not expected to cross 2 midnights.
[2024-06-26] MEDS: OMEPRAZOLE 40 MG CAPSULE.DR PO (18:17)
[2024-06-26] MEDS: ENOXAPARIN SODIUM 30 MG/0.3 ML SYRINGE SUBQ (18:17)
--- OUTSIDE RECORDS SUMMARY | 2024-06-26 18:26 | XMS_ITS | CCD ---
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 Name Role Phone IMAN WILLIS Admitting Unavailable [...] SAMSA ., ISHAN Procedure Practitioner Unavailab le GINGERCHKEVIN ., PA [...] Care Provider MD Remy Givens Attending Provider [phone] Remy Givens Attending Unavailable Remy Givens Admitting Unavailable Naderetorri, Erasto Primary Care Unavailable Erasto Burroughs MD Primary Care Provider [phone] ROSA MARIA, NOORALDIN Referring Unavailable JER NEFF [...] sources) Azithromycin; Translations: [AZITHROMYCIN] Drug Allergy 9 [facility] Repository (5 sources) Latex; Translations: [LATEX] Drug allergy (disorder) 7 [facility] Repository (1 source) Azithromycin Drug Allergy 2 [facility] Repository (1 source) Latex Drug allergy (disorder) 2 [facility] Repository (4 sources) Azithromycin Drug Allergy 3 [facility] (4 sources) Latex Allergy to substance 3 [facility] (1 source) Azithromycin; Translations: [Zithromax] Drug Allergy [facility] Repository Medications Current Medications Medication Drug [...] hyperglycemia, without long-term current use of insulin ([facility]) TAKE 1 TABLET(5 MG) BY MOUTH [...] Start: 08-20-2023 take 1 capsule by [facility] three times daily pregabalin (Lyrica) 100 MG [...] disease (7 sources) Atherosclerotic heart disease of chilkoot coronary artery without angina pectoris; Translations: [Coronary [...] 12-22-2021 Chronic Other aftercare (5 sources) Other shelter (current) drug therapy; Translations: [OTH HALF-WAY CURRENT DRUG THERAPY] Onset: 05-01-2022 Episodic Other [...] Onset: 04-04-2022 Episodic Other aftercare (1 source) foundation digger (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; Translations: [FUSE SPOOLER CURRENT USE OF ASPIRIN] Onset: 05-01-2022 Episodic Other aftercare (1 source) foundation digger (current) use of antithrombotics/ant iplatelets; Translations: [HALF-WAY ANTITHROMBOT/ANTIPL ATLETS] Onset: 03-16-2022 Episodic Other aftercare [...] Bacteria identified Cx Nom (U) [facility] Bacteria identified Cx Nom (U) [address] [place] [address] [id number] [facility] Healthcare Bacteria identified Cx Nom (U) Nuclear Weapons Specialist: Deejay Cortez PhD, Phone: [phone] [facility] Healthcare Ambulatory Visit Summaryon 1 07-12-2023 [...] Ihsan BROWN MD Where: [facility] [address] [place] [address]- You Need to Schedule the Following Appointments Follow Up with KEVIN SALDIVAR, Ihsan Wild, URL When: Where: [facility] [address], [place] [address]- Medications What How Much When Instructions New cephalexin (Keflex 500 mg Cap) 1 Capsules By Mouth Every 12 hours Duration: 10 Days Pickup at [facility] #[id number] Changed estradiol topical (estradiol 0.1 mg/ g Vag Crm) 1 Gram Vaginal As Directed Plunge 1 gm vaginally then apply excess cream around the urethra once a week at night. Pickup at [facility] #[id number] Unchanged albuterol (Albuterol (Eqv-Proventil HFA) 90 mcg/ [...] physician if questions or concerns Pharmacy Information [facility] #[id number]: [address] [place], [place] [phone] Allergies Latex (RASH) Zithromax (HIVES) Problems Ongoing [...] The urethra (more content not included)... Normal [facility] Urology Office/Clinic Noteon 05-12-2024 Urology Office/Clinic [...] Notify office if experiencing SEs. Sent to [facility]. 3. Asymptomatic microscopic hematuria (R31.21: Asymptomatic microscopic hematuria) Chronic. [2] Follow-up With When Contact Information Ihsan BROWN MD, L [facility] [address], [place] [address]- Additional Instructions: 6 mos for UD Patient [...] refills GUAIFE (more content not included)... Normal [facility] Comment on above: Result Comment: Elec tronically Signed By: Ihsan BROWN MD\.br\Date and Time Signed: 05/12/24 17:00 EST\.br\Electronically Co-Signed By: Katarina Bose\.br\Date and Time Co-Signed: 05/12/24 16:58 EST 36on 02-12-2024 36 Tried to contact patient again. She has no VM. [facility] 36on 01-29-2024 36 Regarding lab result s from 01/07/2024: MD Kika Becerra MA Blood work is ok, follow up as planned in 6 months. Tried to contact patient but no VM. Will try again tomorrow. [facility] Office Visiton 01-07-2024 Follow-up visit [id number] Covert,Lise Easton 1955 F Date Provider Department Center 01/07/2024 Andrew-JER NEFF MARC Kirk Family History Problem Relation Age of Onset Stroke Father Stroke Father's Sister Coronary artery disease Paternal Grandmother Family Status - Relation Status Age at Father Father's Sister Paternal Grandmother Level of Service:67961 UT OFFICE/OUTPATIENT ESTABLISHED MOD MDM 30 MIN [facility] Consent for Procedure/Surger yon 11-12-2023 Consent for Procedure/Surgery [id number] Patient Educationon 11-09-19 24 Patient Education Urology [...] including vitamins, herbs, eye drops, creams, and cqcs-unf-tvwmkio medicines. ? Any problems you or family [...] tells you to take them. ? Taking igde-gma-fvwwlqp medicines, vitamins, herbs, and supplements. General instructions [...] these instructions at home: Medicines ? Take nxdi-fot-zxldxfp and prescription medicines only as told by [...] to prevent or treat constipation: ? Take kovu-syd-iwrqudr or prescription medicines. ? Eat foods that [...] You pa (more content not included)... Normal [facility] Urology Office/Clinic Noteon 11-09-2023 Urology Office/Clinic [...] Tight The Urethra was dilated to: 20-32 Danish with sounds. Specimens Removed: None Postoperative Information [...] Information KEVIN SALDIVAR, Ihsan Wild, URL [facility] [place] [address]- Additional Instructions: 6 mos w/ IO UD [...] Vitamin D3 (more content not included)... Normal [facility] Comment on above: Result Comment: Elec tronically Signed By: KEVIN SALDIVAR, Ihsan Ureña.fritz\Date and Time Signed: 11/09/23 12:24 EDT\.br\Electronically Co-Signed By: Amanda Camara.fritz\Date and Time Co-Signed: 11/09/23 12:14 EDT 36on 09-03-2023 36 Home health informed and script sent [facility] Orders Onlyon 08-30-2023 Orders Only [id number] Covert,Lise Easton 1955 F Date Provider Department Center 08/30/2023 RUSH HENNESSY MARC Kirk Family History Problem Relation Age of Onset Stroke Father Stroke Father's Sister Coronary artery disease Paternal Grandmother Family Status - Relation Status Age at Father Father's Sister Paternal Grandmother Normal [facility] Office Visiton 06-27-2023 Follow-up visit [id number] Covert,Lise Easton 1955 F Date Provider Department Center 06/27/2023 JER LARRY MARC Kirk Family History Problem Relation Age of Onset Stroke Father Stroke Father's Sister Coronary artery disease Paternal Grandmother Family Status - Relation Status Age at Father Father's Sister Paternal Grandmother Level of Service:45665 UT OFFICE/OUTPATIENT ESTABLISHED LOW MDM 20 MIN Normal [facility] [place] 30on 06-06-2023 30 The patient is Moderately [...] symptoms for stability, deterioration, or improvement Normal [facility] BASIC METABOLIC PANELon 11-2 Anion gap [Moles/Vol] 9 mmol/L Normal 7-20 [facility] Comment on above: Performed By: #### L [id number] #### [facility] ([facility]) [address] [place] [address] Calcium [Mass/Vol] 8.3 mg/dL Low 8.6-10.3 [facility] Comment on above: Performed By: #### L [id number] #### [facility] ([facility]) [address] [place] [address] Chloride [Moles/Vol] 99 mmol/L Normal 98-107 [facility] Comment on above: Performed By: #### L [id number] #### [facility] ([facility]) [address] [place] [address] CO2 [Moles/Vol] 26 mmol/L Normal 21-31 [facility] Comment on above: Performed By: #### L [id number] #### [facility] ([facility]) [address] [place] [address] Creatinine [Mass/Vol] 0.72 mg/dL Normal 0.60-1.20 [facility] Comment on above: Performed By: #### L [id number] #### [facility] ([facility]) [address] [place] [address] GLOMERULAR FILTRATION RATE ML/MIN/1.73 SQ M.PREDICTED 92.2 mL/min/1.73m*2 Normal >60.0 [facility] Comment on above: Result Comment: The [facility]???s estimated glomerular filtration rate (eGFR) will no [...] individuals. Performed By: #### L [id number] #### [facility] ([facility]) [address] [place] [address] Glucose [Mass/Vol] 107 mg/dL High 70-100 [facility] Comment on above: Performed By: #### L [id number] #### [facility] ([facility]) [address] [place] [address] Potassium [Moles/Vol] 3.9 mmol/L Normal 3.5-5.1 [facility] Comment on above: Performed By: #### L [id number] #### [facility] ([facility]) [address] [place] [address] Sodium [Moles/Vol] 130 mmol/L Low 136-145 [facility] Comment on above: Performed By: #### L [id number] #### [facility] ([facility]) [address] [place] [address] Urea nitrogen [Mass/Vol] 12 mg/dL Normal 7-25 [facility] Comment on above: Performed By: #### L [id number] #### [facility] ([facility]) [address] [place] [address] UREA NITROGEN/CREATININE (MASS RATIO) IN SER/PLAS 16.7 Normal [facility] Comment on above: Performed By: #### L [id number] #### [facility] ([facility]) [address] [place] [address] CBCon 06-06-2023 Erythrocyte distribution width (RBC) [Ratio] 13.4 % Normal 11.5-15.0 [facility] Comment on above: Performed By: #### L [id number] #### [facility] ([facility]) [address] [facility] [place] [address] ERYTHROCYTE MEAN CORPUSCULAR HEMOGLOBIN CONCENTRATION (G/DL) BY AUTOMATED 33.4 g/dL Normal 32.0-35.0 [facility] Comment on above: Performed By: #### L [id number] #### [facility] ([facility]) [address] [place] [address] Hematocrit (Bld) [Volume fraction] 28.7 % Low 36.0-48.0 [facility] Comment on above: Performed By: #### L [id number] #### [facility] ([facility]) [address] [place] [address] Hemoglobin (Bld) [Mass/Vol] 9.6 g/dL Low 12.0-15.0 [facility] Comment on above: Performed By: #### L [id number] #### [facility] ([facility]) [address] [place] [address] MCH (RBC) [Entitic mass] 28.2 pg Normal 27.0-33.0 [facility] Comment on above: Performed By: #### L [id number] #### [facility] ([facility]) [address] [place] [address] MCV (RBC) [Entitic vol] 84.4 fL Normal 82.0-98.0 [facility] Comment on above: Performed By: #### L [id number] #### [facility] ([facility]) [address] [place] [address] PLATELETS (10*3/UL) IN BLOOD AUTOMATED COUNT 522 10*3/uL High 150-400 [facility] Comment on above: Performed By: #### L [id number] #### [facility] ([facility]) [address] [place] [address] RBC (Bld) [#/Vol] 3.40 10*6/uL Low 3.80-5.00 [facility] Comment on above: Performed By: #### L [id number] #### [facility] ([facility]) [address] [place] [address] WBC (Bld) [#/Vol] 10.31 10*3/uL Normal 4.00-10.60 [facility] Comment on above: Performed By: #### L [id number] #### [facility] ([facility]) [address] [place] [address] Letter (Out)on 06-06-2023 Letter (Out) [id number] Covert,Lise Easton 1955 F Date Provider Department Center 06/06/2023 [id number], GENERIC PRO*INIT None Family History Problem Relation Age of Onset Stroke Father Stroke Father's Sister Coronary artery disease Paternal Grandmother Family Status - Relation Status Age at Father Father's Sister Paternal Grandmother Normal [facility] MAGNESIUMon 06-06-2023 Magnesium [Mass/Vol] 1.9 mg/dL Normal 1.9-2.7 [facility] Comment on above: Performed By: #### L [id number] #### [facility] ([facility]) [address] [place] [address] 30on 06-05-2023 30 The patient is Moderately Stable - Low risk of patient condition declining or worsening The patient's goals for the shift include comfort The clinical goals for the shift include stable vitals Normal [facility] 30 Daily Case Managemen t Update Multidisciplinary rounds have been completed. Barriers to Discharge: Transfer from [place] for chest pain and NSTEMI. TTE ordered. Pending cardio rec. Trop was .06 down to .04. +UTI and Pneumonia. Continue IV Rocephin. Urine and blood cultures pending. Patient is from home with [facility] and 2L home 02 Diet: Dietary [...] your name here: DANIEL GUERIN 06/05/23 1508 [facility] 30 The patient is Moderately Unstable - Medium risk of patient condition declining or worsening The patient's goals for the shift include comfort The clinical goals for the shift include vss Over the shift, the patient did not make progress toward the following goals. Barriers to progression include . Recommendations to address these barriers include . [facility] 30 The patient is Moderately Stable [...] injury: Assess patient frequently for physical needs Bridger fall precautions as indicated by assessment Identify [...] and prevent overall improvement and discharge Normal [facility] ANTI-XA (HEPARIN LEVEL)on HEPARIN UNFRACTIONATED (U/ML) IN PPP BY CHROMOGENIC METHOD <0.10 Invalid Interpretation Code 0.3-0.7 [facility] Comment on above: Order Comment: Check anti-Xa level every 6 hours while on heparin infusion, or per protocol. Result Comment: [place] roxaban and Apixaban will interfere with the anti Xa assay used to monitor UFH and LMWH. Performed By: #### L [id number] #### [facility] ([facility]) [address] [place] [address] HEPARIN UNFRACTIONATED (U/ML) IN PPP BY CHROMOGENIC METHOD <0.10 Invalid Interpretation Code 0.3-0.7 [facility] Comment on above: Order Comment: Check anti-Xa level every 6 hours while on heparin infusion, or per protocol. Result Comment: [place] roxaban and Apixaban will interfere with the anti Xa assay used to monitor UFH and LMWH. Performed By: #### L [id number] #### [facility] ([facility]) [address] [place] [address] APTTon 06-05-2023 ACTIVATED PARTIAL THROMBOPLASTIN TIME IN PPP BY COAGULATION ASSAY 38.8 Seconds High 25.0-35.0 [facility] Comment on above: Result Comment: Clin ical significance of the APTT is questionable in the presence of heparin. Performed By: #### L [id number] #### [facility] ([facility]) [address] [place] [address] B-TYPE NATRIURETIC PEPTIDEon 06-05-2023 Natriuretic peptide B (Bld) [Mass/Vol] 136 pg/mL High 0-100 [facility] Comment on above: Performed By: #### L [id number] #### [facility] ([facility]) [address] [place] [address] BLOOD CULTUREon 06-05-2023 Bacteria identified Cx Nom (Bld) No growth at 5 days Normal [facility] Comment on above: Performed By: #### L [id number] ####[facility] ([facility])[address] [place] [address] Order Comment: From a different site than #1. CBC WITH AUTO DIFFERENTIALon 06-05-2023 Basophils (Bld) [#/Vol] 0.05 10*3/uL Normal 0.00-0.20 [facility] Comment on above: Performed By: #### L [id number] #### [facility] ([facility]) [address] [place] [address] Basophils/100 WBC (Bld) 0.3 % Normal 0.0-1.0 [facility] Comment on above: Performed By: #### L [id number] #### [facility] ([facility]) [address] [place] [address] Eosinophils (Bld) [#/Vol] 0.02 10*3/uL Normal 0.00-0.50 [facility] Comment on above: Performed By: #### L [id number] #### [facility] ([facility]) [address] [place] [address] Eosinophils/100 WBC (Bld) 0.1 % Normal 0.0-6.0 [facility] Comment on above: Performed By: #### L [id number] #### [facility] ([facility]) [address] [place] [address] Erythrocyte distribution width (RBC) [Ratio] 13.3 % Normal 11.5-15.0 [facility] Comment on above: Performed By: #### L [id number] #### [facility] ([facility]) [address] [place] [address] ERYTHROCYTE MEAN CORPUSCULAR HEMOGLOBIN CONCENTRATION (G/DL) BY AUTOMATED 32.4 g/dL Normal 32.0-35.0 [facility] [place] Comment on above: Performed By: #### L [id number] #### [facility] ([facility]) [address] [place] [address] Hematocrit (Bld) [Volume fraction] 35.8 % Low 36.0-48.0 [facility] Comment on above: Performed By: #### L [id number] #### [facility] ([facility]) [address] [place] [address] Hemoglobin (Bld) [Mass/Vol] 11.6 g/dL Low 12.0-15.0 [facility] Comment on above: Performed By: #### L [id number] #### [facility] ([facility]) [address] [place] [address] Immature granulocytes (Bld) [#/Vol] 0.17 10*3/uL Normal 0.00-0.20 [facility] Comment on above: Performed By: #### L [id number] #### [facility] ([facility]) [address] [place] [address] Immature granulocytes/100 WBC (Bld) 1.0 % Normal 0.0-1.0 [facility] Comment on above: Performed By: #### L [id number] #### [facility] ([facility]) [address] [place] [address] Lymphocytes (Bld) [#/Vol] 0.80 10*3/uL Low 1.20-4.00 [facility] Comment on above: Performed By: #### L [id number] #### [facility] ([facility]) [address] [place] [address] Lymphocytes/100 WBC (Bld) 4.6 % Low 20.0-45.0 [facility] Comment on above: Performed By: #### L [id number] #### [facility] ([facility]) [address] [place] [address] MCH (RBC) [Entitic mass] 28.3 pg Normal 27.0-33.0 [facility] Comment on above: Performed By: #### L [id number] #### [facility] ([facility]) [address] [place] [address] MCV (RBC) [Entitic vol] 87.3 fL Normal 82.0-98.0 [facility] Comment on above: Performed By: #### L [id number] #### [facility] ([facility]) [address] [place] [address] Monocytes (Bld) [#/Vol] 0.78 10*3/uL Normal 0.10-1.00 [facility] Comment on above: Performed By: #### L [id number] #### [facility] ([facility]) [address] [place] [address] Monocytes/100 WBC (Bld) 4.5 % Low 5.0-12.0 [facility] Comment on above: Performed By: #### L [id number] #### [facility] ([facility]) [address] [place] [address] Neutrophils (Bld) [#/Vol] 15.46 10*3/uL High 1.60-7.60 [facility] Comment on above: Performed By: #### L [id number] #### [facility] ([facility]) [address] [place] [address] Neutrophils/100 WBC (Bld) 89.5 % High 40.0-72.0 [facility] Comment on above: Performed By: #### L [id number] #### [facility] ([facility]) [address] [place] [address] NRBC (PER 100 WBCS) BY AUTOMATED COUNT 0.0 % Normal 0 [facility] Comment on above: Performed By: #### L [id number] #### [facility] ([facility]) [address] [place] [address] PLATELETS (10*3/UL) IN BLOOD AUTOMATED COUNT 517 10*3/uL High 150-400 [facility] Comment on above: Performed By: #### L [id number] #### [facility] ([facility]) [address] [place] [address] RBC (Bld) [#/Vol] 4.10 10*6/uL Normal 3.80-5.00 [facility] Comment on above: Performed By: #### L [id number] #### [facility] ([facility]) [address] [place] [address] WBC (Bld) [#/Vol] 17.28 10*3/uL High 4.00-10.60 [facility] Comment on above: Performed By: #### L [id number] #### [facility] ([facility]) [address] [place] [address] COMPREHENSIVE METABOLIC PANE [place] 06-05-2023 ALANINE AMINOTRANSFERASE (SGPT) (U/L) IN SER/PLAS <3 Low 7-52 [facility] Comment on above: Performed By: #### L [id number] #### [facility] ([facility]) [address] [place] [address] Albumin [Mass/Vol] 3.1 g/dL Low 3.5-5.7 [facility] Comment on above: Performed By: #### L [id number] #### [facility] ([facility]) [address] [place] [address] ALP [Catalytic activity/Vol] 83 U/L Normal 34-104 [facility] Comment on above: Performed By: #### L [id number] #### [facility] ([facility]) [address] [place] [address] Anion gap [Moles/Vol] 13 mmol/L Normal 7-20 [facility] Comment on above: Performed By: #### L [id number] #### [facility] ([facility]) [address] [place] [address] AST [Catalytic activity/Vol] 14 U/L Normal 13-39 [facility] Comment on above: Performed By: #### L [id number] #### [facility] ([facility]) [address] [place] [address] Bilirubin [Mass/Vol] 0.3 mg/dL Normal 0.3-1.0 [facility] Comment on above: Performed By: #### L [id number] #### [facility] ([facility]) [address] [place] [address] Calcium [Mass/Vol] 8.9 mg/dL Normal 8.6-10.3 [facility] Comment on above: Performed By: #### L [id number] #### [facility] ([facility]) [address] [place] [address] Chloride [Moles/Vol] 98 mmol/L Normal 98-107 [facility] Comment on above: Performed By: #### L [id number] #### [facility] ([facility]) [address] [place] [address] CO2 [Moles/Vol] 25 mmol/L Normal 21-31 [facility] Comment on above: Performed By: #### L [id number] #### [facility] ([facility]) [address] [place] [address] Creatinine [Mass/Vol] 0.96 mg/dL Normal 0.60-1.20 [facility] Comment on above: Performed By: #### L [id number] #### [facility] ([facility]) [address] [place] [address] GLOMERULAR FILTRATION RATE ML/MIN/1.73 SQ M.PREDICTED 65.3 mL/min/1.73m*2 Normal >60.0 [facility] Comment on above: Result Comment: The [facility]???s estimated glomerular filtration rate (eGFR) will no [...] individuals. Performed By: #### L [id number] #### [facility] ([facility]) [address] [place] [address] Glucose [Mass/Vol] 93 mg/dL Normal 70-100 [facility] Comment on above: Performed By: #### L [id number] #### [facility] ([facility]) [address] [place] [address] Potassium [Moles/Vol] 3.3 mmol/L Low 3.5-5.1 [facility] Comment on above: Performed By: #### L [id number] #### [facility] ([facility]) [address] [place] [address] Protein [Mass/Vol] 5.7 g/dL Low 6.0-8.3 [facility] Comment on above: Performed By: #### L [id number] #### [facility] ([facility]) [address] [place] [address] Sodium [Moles/Vol] 133 mmol/L Low 136-145 [facility] Comment on above: Performed By: #### L [id number] #### [facility] ([facility]) [address] [place] [address] Urea nitrogen [Mass/Vol] 12 mg/dL Normal 7-25 [facility] Comment on above: Performed By: #### L [id number] #### [facility] ([facility]) [address] [place] [address] UREA NITROGEN/CREATININE (MASS RATIO) IN SER/PLAS 12.5 Normal [facility] Comment on above: Performed By: #### L [id number] #### [facility] ([facility]) [address] [place] [address] CONSULTon 06-05-2023 CONSULT - Attestation signed by Jer Neff MD at 06/05/2023 6:33 PM I personally saw and examined the patient on the same date of service as resident/fellow Zoie Hodges. I discussed the findings and therapeutic plan with the resident/fellow Zoie Hodegs. I agree with the documentation, except for any edits/updates below. Teaching Physician's Revisions: none Cardiology Consult Note Reason for Consult: NSTEMI HPI: Lise Canales is a 68 y.o. female with PMH of CAD s/p Stenting of LAD ISR using DANNY in 2019, Hypertension, Hyperlipidemia, Advanced COPD s/p lobectomy, Polymyalgia rheumatica, who presented in setting of Nausea / Vomiting and Urinary symptoms to [facility], there she was found to have UTI, labs showed WBC of 17 and she was started on IV antibiotics, work up also showed high sensitive troponin of 62, She doesn't report any chest pain, or discomfort. She was started on heparin drip and was transferred here to [facility]. Today she reports no chest pain [...] bilaterally. NEURO: (more content not included)... Normal [facility] ETHANOLon 06-05-2023 ETHANOL (MG/DL) IN SER/PLAS <10 Normal [facility] Comment on above: Performed By: #### L [id number] #### [facility] ([facility]) [address] [place] [address] ETHANOL CALCULATED (%) Normal [facility] Comment on above: Performed By: #### L [id number] #### [facility] ([facility]) [address] [place] [address] HEMOGLOBIN A1Con 06-05-2023 Glucose [Mass/Vol] 160 mg/dL Normal [facility] Comment on above: Performed By: #### L [id number] ####[facility] ([facility])[address] [place] [address] HbA1c (Bld) [Mass fraction] 7.2 % High 4.0-6.0 [facility] Comment on above: Performed By: #### L [id number] ####[facility] ([facility])[address] [place] [address] LACTIC ACID WITH 4 HOUR REFL EXon 06-05-2023 LACTATE (MMOL/L) IN SER/PLAS 1.1 mmol/L Normal 0.5-2.2 [facility] Comment on above: Performed By: #### L [id number] #### [facility] ([facility]) [address] [place] [address] LEGIONELLA ANTIGEN, URINEon 06-05-2023 LEGIONELLA AG, UR Negative Normal NEG [facility] Comment on above: Result Comment: L. p neumophila serogroup 1 antigen not detected. A negative result does not exclude infection with Leginella pnemophila serogroup 1 nor does it rule out other microbial-caused respiratory infections of disease caused by other serogroups of Legionella pneumophila. Test Performed by [facility] [address] [place] [address] - Released 06/05/2023 12:36 Performed By: #### L [id number] #### [facility] [address] [place] [address] LIPID PANELon 06-05-2023 CHOL/HDL 1.6 mg/dL Normal [facility] Comment on above: Performed By: #### L [id number] #### [facility] ([facility]) [address] [place] [address] Cholesterol [Mass/Vol] 74 mg/dL Low 120-200 [facility] Comment on above: Performed By: #### L [id number] #### [facility] ([facility]) [address] [place] [address] Magnesium [Mass/Vol] 65 mg/dL Normal 40-149 [facility] Comment on above: Result Comment: TRIG LYCERIDE REFERENCE RANGE: 20 YEARS AND OLDER CARDIOVASCULAR RISK LESS THAN 150 mg/dL LOW RISK 150 TO 199 mg/dL BORDERLINE RISK 200 mg/dL AND GREATER HIGH RISK Performed By: #### L [id number] #### [facility] ([facility]) [address] [place] [address] Magnesium [Mass/Vol] 14 mg/dL Normal 0-160 [facility] Comment on above: Performed By: #### L [id number] #### [facility] ([facility]) [address] [place] [address] Magnesium [Mass/Vol] 47 mg/dL Normal 23-92 [facility] Comment on above: Performed By: #### L [id number] #### [facility] ([facility]) [address] [place] [address] NON HDL CHOL. (LDL+VLDL) 27 Normal [facility] Comment on above: Performed By: #### L [id number] #### [facility] ([facility]) [address] [place] [address] TOTAL VLDL-C 13 mg/dL Normal 0-40 [facility] Comment on above: Performed By: #### L [id number] #### [facility] ([facility]) [address] [place] [address] MAGNESIUMon 06-05-2023 Magnesium [Mass/Vol] 1.1 mg/dL Low 1.9-2.7 [facility] Comment on above: Performed By: #### L [id number] #### [facility] ([facility]) [address] [place] [address] PHOSPHORUSon 06-05-2023 Magnesium [Mass/Vol] 2.8 mg/dL Normal 2.5-5.0 [facility] Comment on above: Performed By: #### L [id number] #### [facility] ([facility]) [address] [place] [address] PROTIME-INRon 06-05-2023 INR IN PPP BY COAGULATION ASSAY 1.25 High 0.90-1.10 [facility] Comment on above: Result Comment: ACCC P [...] 1995;[id number]. Performed By: #### L [id number] #### [facility] ([facility]) [address] [place] [address] PROTHROMBIN TIME (PT) IN PPP BY COAGULATION ASSAY 15.7 Seconds High 12.3-14.8 [facility] Comment on above: Performed By: #### L [id number] #### [facility] ([facility]) [address] [place] [address] TOXICOLOGY PANEL URINEon AMPHETAMINE+METHAMPHE TAMINE SCREEN (PRESENCE) IN URINE Negative Normal Negative [facility] Comment on above: Performed By: #### L [id number] ####[facility] ([facility])[address] [place] [address] BARBITURATES PRESENCE IN URINE BY SCREEN METHOD Negative Normal Negative [facility] Comment on above: Performed By: #### L [id number] ####[facility] ([facility])[address] [place] [address] Benzodiazepines Ql (U) Negative Normal Negative [facility] Comment on above: Performed By: #### L [id number] ####[facility] ([facility])[address] [place] [address] CANNABINOID (PRESENCE) IN URINE BY SCREEN METHOD Negative Normal Negative [facility] Comment on above: Performed By: #### L [id number] ####[facility] ([facility])[address] [place] [address] Cocaine Ql (U) Negative Normal Negative [facility] Comment on above: Performed By: #### L [id number] ####[facility] ([facility])[address] [place] [address] METHADONE (PRESENCE) IN URINE BY SCREEN METHOD Negative Normal Negative [facility] Comment on above: Performed By: #### L [id number] ####[facility] ([facility])[address] [place] [address] OPIATES (PRESENCE) IN URINE BY SCREEN METHOD Positive Abnormal Negative [facility] Comment on above: Performed By: #### L [id number] ####[facility] ([facility])[address] [place] [address] PHENCYCLIDINE PRESENCE IN URINE BY SCREEN METHOD Negative Normal Negative [facility] Comment on above: Performed By: #### L [id number] ####[facility] ([facility])[address] [place] [address] Propoxyphene Screen Ql (U) Negative Normal Negative [facility] Comment on above: Performed By: #### L [id number] ####[facility] ([facility])[address] [place] [address] TRICYCLIC ANTIDEPRESSANTS (PRESENCE) IN URINE Negative Normal Negative [facility] Comment on above: Performed By: #### L [id number] ####[facility] ([facility])[address] [place] [address] TROPONIN Ion 11-28-2023 Troponin I.cardiac [Mass/Vol] 0.04 ng/mL Normal 0.00-0.04 [facility] Comment on above: Performed By: #### L [id number] #### [facility] ([facility]) [address] [place] [address] Troponin I.cardiac [Mass/Vol] 0.06 ng/mL High 0.00-0.04 [facility] Comment on above: Performed By: #### L [id number] ####[facility] ([facility])[address] [place] [address] TSH3 REFLEX TO FT4on 023 THYROTROPIN (MIU/L) IN SER/PLAS BY DETECTION LIMIT <= 0.05 MIU/L 1.46 mIU/L Normal 0.34-5.60 [facility] Comment on above: Performed By: #### L [id number] ####[facility] ([facility])[address] [place] [address] URINALYSIS MICROSCOPIC WITH REFLEX CULTUREon 06-05-2023 CASTS IN URINE Normal [facility] Comment on above: Performed By: #### L [id number] ####[facility] ([facility])[address] [place] [address] CRYSTALS IN URINE Normal [facility] Comment on above: Performed By: #### L [id number] ####[facility] ([facility])[address] [place] [address] OTHER MICROSCOPIC ELEMENTS Normal [facility] Comment on above: Performed By: #### L [id number] ####[facility] ([facility])[address] [place] [address] RBC (#/HPF) IN URINE SEDIMENT 6-10 Abnormal None Seen [facility] Comment on above: Performed By: #### L [id number] ####[facility] ([facility])[address] [place] [address] SQUAMOUS EPITHELIAL CELLS (#/HPF) IN URINE SEDIMENT Many Abnormal None Seen, Occasional [facility] Comment on above: Performed By: #### L [id number] ####[facility] ([facility])[address] [place] [address] WBC (LEUKOCYTE) (#/HPF) IN URINE SEDIMENT >100 Abnormal None Seen [facility] Comment on above: Performed By: #### L [id number] ####[facility] ([facility])[address] [place] [address] URINALYSIS WITH REFLEX CULTU REon 06-05-2023 BILIRUBIN, TOTAL PRESENCE IN URINE Negative Normal Negative [facility] Comment on above: Performed By: #### L [id number] ####[facility] ([facility])[address] [place] [address] Clarity (U) Clear Normal Clear [facility] Comment on above: Performed By: #### L [id number] ####[facility] ([facility])[address] [place] [address] Color (U) Yellow Normal Yellow [facility] Comment on above: Performed By: #### L [id number] ####[facility] ([facility])[address] [place] [address] Glucose (U) [Mass/Vol] Negative Normal Negative [facility] Comment on above: Performed By: #### L [id number] ####[facility] ([facility])[address] [place] [address] HEMOGLOBIN PRESENCE IN URINE Moderate Abnormal Negative [facility] Comment on above: Performed By: #### L [id number] ####[facility] ([facility])[address] [place] [address] Ketones Ql (U) Trace Abnormal Negative [facility] Comment on above: Performed By: #### L [id number] ####[facility] ([facility])[address] [place] [address] LEUKOCYTE ESTERASE PRESENCE IN URINE BY TEST STRIP Large Abnormal Negative [facility] Comment on above: Performed By: #### L [id number] ####[facility] ([facility])[address] [place] [address] NITRITE PRESENCE IN URINE Positive Abnormal Negative [facility] Comment on above: Performed By: #### L [id number] ####[facility] ([facility])[address] [place] [address] pH (U) 6.0 [pH] Normal 5.0-8.0 [facility] Comment on above: Performed By: #### L [id number] ####[facility] ([facility])[address] [place] [address] Protein (U) [Mass/Vol] 30 mg/dL Abnormal Negative [facility] Comment on above: Performed By: #### L [id number] ####[facility] ([facility])[address] [place] [address] Specific gravity (U) [Rel density] 1.012 Low 1.015-1.020 [facility] Comment on above: Performed By: #### L [id number] ####[facility] ([facility])[address] [place] [address] 30on 06-04-2023 30 The patient is Moderately Stable - Low risk of patient condition declining or worsening The patient's goals for the shift include comfort The clinical goals for the shift include VSS Normal [facility] CT CHEST WO CONon 10-31-2022 CT CHEST [...] by: MIGUE REYNOSO Date: 2022-10-31 17:34 Normal [facility] HEMOGLOBINon 10-31-2022 Hemoglobin (Bld) [Mass/Vol] 11.8 g/dL Critically low 12.0-16.0 [facility] Comment on above: Performed By: #### C VDTB #### [facility] [address] [place] [address] Dr. Kayley Hatfield BUNon 10-10-2022 Urea nitrogen [Mass/Vol] 13.0 mg/dL Normal 7.0-18.0 [facility] Comment on above: Performed By: #### L DH #### [facility] [address] [place] [address] Dr. Kayley Hatfield CALCIUMon 10-10-2022 Calcium [Mass/Vol] 9.7 mg/dL Normal 8.5-10.1 [facility] Comment on above: Performed By: #### L DH #### [facility] [address] [place] [address] Dr. Kayley Hatfield CREATININEon 10-10-2022 Creatinine [Mass/Vol] 1.19 mg/dL Critically high 0.55-1.02 [facility] Comment on above: Performed By: #### L DH #### [facility] [address] [place] [address] Dr. Kayley Hatfield EGFR-AF TUVALUAN 55 mL/min/1.73m2 Critically low >=60 [facility] Comment on above: Performed By: #### L DH #### [facility] [address] [place] [address] Dr. Kayley Hatfield EGFR-NON AF TUVALUAN 46 mL/min/1.73m2 Critically low >=60 [facility] Comment on above: Performed By: #### L DH #### [facility] [address] [place] [address] Dr. Kayley Hatfield CRPon 10-10-2022 CRP [Mass/Vol] mg/L Normal <=1.0 [facility] Comment on above: Performed By: #### L DH #### [facility] [address] [place] [address] Dr. Kayley Hatfield MAGNESIUMon 10-10-2022 Magnesium [Mass/Vol] 1.7 mg/dL Critically low 1.8-2.4 [facility] Comment on above: Performed By: #### L DH #### [facility] [address] [place] [address] Dr. Kayley Hatfield PHOSPHORUSon 10-10-2022 Phosphate [Mass/Vol] 4.0 mg/dL Normal 2.6-4.7 [facility] Comment on above: Performed By: #### L DH #### [facility] [address] [place] [address] Dr. Kayley Hatfield SED RATE WESTERGRENon 2022 SED RATE 25 mm/hr Normal <=30 [facility] Comment on above: Performed By: #### P RTELEC #### [facility] [address] [place] [address] Dr. Kayley Hatfield CBC AUTO DIFFon 05-01-2022 BASO # 0.1 103/ul Normal 0.0-0.1 [facility] Comment on above: Performed By: #### P RBC #### [facility] [address] [place] [address] Dr. Kayley Hatfield Basophils/100 WBC (Bld) 0.5 % Normal 0.2-2.0 [facility] Comment on above: Performed By: #### P RBC #### [facility] [address] [place] [address] Dr. Kayley Hatfield EO # 0.2 103/ul Normal 0.0-0.7 [facility] Comment on above: Performed By: #### P RBC #### [facility] [address] [place] [address] Dr. Kayley Hatfield Eosinophils/100 WBC (Bld) 1.2 % Normal 0.9-7.0 [facility] Comment on above: Performed By: #### P RBC #### [facility] [address] [address] [address] Kayley Hatfield Erythrocyte distribution width (RBC) [Ratio] 14.9 % Normal 11.0-15.0 [facility] Comment on above: Performed By: #### P RBC #### [facility] [address] [address] [address] Kayley Hatfield Hematocrit (Bld) [Volume fraction] 34.2 % Critically low 36.0-48.0 [facility] Comment on above: Performed By: #### P RBC #### [facility] [address] [place] [address] Dr. Kayley Hatfield Hemoglobin (Bld) [Mass/Vol] 10.3 g/dL Critically low 12.0-16.0 [facility] Comment on above: Performed By: #### P RBC #### [facility] [address] [place] [address] Dr. Kayley Hatfield IG # 0.19 10e3/ul Critically high 0.00-0.03 [facility] Comment on above: Performed By: #### P RBC #### [facility] [address] [place] [address] Dr. Kayley Hatfield IG % 1.3 % Critically high 0.0-0.5 [facility] Comment on above: Performed By: #### P RBC #### [facility] [address] [place] [address] Dr. Kayley Hatfield LYMPH # 1.1 103/ul Critically low 1.2-3.8 [facility] Comment on above: Performed By: #### P RBC #### [facility] [address] [address] [address] Kayley Hatfield Lymphocytes/100 WBC (Bld) 7.3 % Critically low 20.5-60.0 [facility] Comment on above: Performed By: #### P RBC #### [facility] [address] [place] [address] Dr. Kayley Hatfield MANUAL DIFF REQ NO Normal [facility] Comment on above: Performed By: #### P RBC #### [facility] [address] [address] [address] Kayley Hatfield MCH (RBC) [Entitic mass] 28.4 pg Normal 26.7-34.0 [facility] Comment on above: Performed By: #### P RBC #### [facility] [address] [address] [address] Kayley Hatfield MCHC (RBC) [Mass/Vol] 30.1 g/dL Normal 29.9-35.2 [facility] Comment on above: Performed By: #### P RBC #### [facility] [address] [address] [address] Kayley Hatfield MCV (RBC) [Entitic vol] 94.2 fL Normal 81.0-99.0 [facility] Comment on above: Performed By: #### P RBC #### [facility] [address] [place] [address] Dr. Kayley Hatfield MONO # 0.6 103/ul Normal 0.3-0.8 [facility] Comment on above: Performed By: #### P RBC #### [facility] [address] [address] [address] Kayley Hatfield Monocytes/100 WBC (Bld) 4.0 % Normal 1.7-12.0 [facility] Comment on above: Performed By: #### P RBC #### [facility] [address] [address] [address] Kayley Hatfield NEUT # 12.5 103/ul Critically high 1.4-6.5 [facility] Comment on above: Performed By: #### P RBC #### [facility] [address] [address] [address] Kayley Hatfield Neutrophils/100 WBC (Bld) 85.7 % Critically high 43.0-75.0 [facility] Comment on above: Performed By: #### P RBC #### [facility] [address] [place] [address] Dr. Kayley Hatfield Platelet mean volume (Bld) [Entitic vol] 8.5 fL Critically low 9.5-13.5 [facility] Comment on above: Performed By: #### P RBC #### [facility] [address] [place] [address] Dr. Kayley Hatfield PLT 574 103/ul Critically high 150-450 [facility] Comment on above: Performed By: #### P RBC #### [facility] [address] [place] [address] Dr. Kayley Hatfield RBC 3.63 106/ul Critically low 4.20-5.40 [facility] Comment on above: Performed By: #### P RBC #### [facility] [address] [place] [address] Dr. Kayley Hatfield WBC 14.6 103/ul Critically high 4.0-11.0 [facility] Comment on above: Performed By: #### P RBC #### [facility] [address] [place] [address] Dr. Kayley Hatfield MAGNESIUMon 05-01-2022 Magnesium [Mass/Vol] 2.1 mg/dL Normal 1.8-2.4 [facility] Comment on above: Performed By: #### O BSCRN #### [facility] [address] [place] [address] Dr. Kayley Hatfield PROF CHEM 8 (BAS METB)on Anion gap [Moles/Vol] 8.6 mmol/L Normal [facility] Comment on above: Performed By: #### O BSCRN #### [facility] [address] [place] [address] Dr. Kayley Hatfield Calcium [Mass/Vol] 9.0 mg/dL Normal 8.5-10.1 [facility] Comment on above: Performed By: #### O BSCRN #### [facility] [address] [place] [address] Dr. Kayley Hatfield Chloride [Moles/Vol] 101 mmol/L Normal 98-107 [facility] Comment on above: Performed By: #### O BSCRN #### [facility] [address] [place] [address] Dr. Kayley Hatfield CO2 [Moles/Vol] 33.0 mmol/L Critically high 21.0-32.0 [facility] Comment on above: Performed By: #### O BSCRN #### [facility] [address] [place] [address] Dr. Kayley Hatfield Creatinine [Mass/Vol] 0.94 mg/dL Normal 0.55-1.02 [facility] Comment on above: Performed By: #### O BSCRN #### [facility] [address] [address] [address] Kayley Hatfield EGFR-AF TUVALUAN >60 Normal >=60 [facility] Comment on above: Performed By: #### O BSCRN #### [facility] [address] [place] [address] Dr. Kayley Hatfield EGFR-NON AF TUVALUAN >60 Normal >=60 [facility] Comment on above: Performed By: #### O BSCRN #### [facility] [address] [address] [address] Kayley Hatfield Glucose [Mass/Vol] 143 mg/dL Critically high 74-106 [facility] Comment on above: Performed By: #### O BSCRN #### [facility] [address] [place] [address] Dr. Kayley Hatfield Potassium [Moles/Vol] 4.6 mmol/L Normal 3.5-5.1 [facility] Comment on above: Performed By: #### O BSCRN #### [facility] [address] [address] [address] Kayley Hatfield Sodium [Moles/Vol] 138 mmol/L Normal 136-145 [facility] Comment on above: Performed By: #### O BSCRN #### [facility] [address] [address] [address] Kayley Hatfield Urea nitrogen [Mass/Vol] 15.0 mg/dL Normal 7.0-18.0 [facility] Comment on above: Performed By: #### O BSCRN #### [facility] [address] [place] [address] Dr. Kayley Hatfield Urea nitrogen/Creatinine [Mass ratio] 16.0 mg/mg Normal [facility] Comment on above: Performed By: #### O BSCRN #### [facility] [address] [place] [address] Dr. Kayley Hatfield CBC AUTO DIFFon 04-26-2022 BASO # 0.1 103/ul Normal 0.0-0.1 [facility] Comment on above: Performed By: #### P RBC #### [facility] [address] [place] [address] Dr. Kayley Hatfield Basophils/100 WBC (Bld) 0.5 % Normal 0.2-2.0 [facility] Comment on above: Performed By: #### P RBC #### [facility] [address] [place] [address] Dr. Kayley Hatfield EO # 0.2 103/ul Normal 0.0-0.7 [facility] Comment on above: Performed By: #### P RBC #### [facility] [address] [place] [address] Dr. Kayley Hatfield Eosinophils/100 WBC (Bld) 1.8 % Normal 0.9-7.0 [facility] Comment on above: Performed By: #### P RBC #### [facility] [address] [place] [address] Dr. Kayley Hatfield Erythrocyte distribution width (RBC) [Ratio] 14.7 % Normal 11.0-15.0 [facility] Comment on above: Performed By: #### P RBC #### [facility] [address] [place] [address] Dr. Kayley Hatfield Hematocrit (Bld) [Volume fraction] 32.0 % Critically low 36.0-48.0 [facility] Comment on above: Performed By: #### P RBC #### [facility] [address] [place] [address] Dr. Kayley Hatfield Hemoglobin (Bld) [Mass/Vol] 9.9 g/dL Critically low 12.0-16.0 [facility] Comment on above: Performed By: #### P RBC #### [facility] [address] [place] [address] Dr. Kayley Hatfield IG # 0.07 10e3/ul Critically high 0.00-0.03 [facility] Comment on above: Performed By: #### P RBC #### [facility] [address] [place] [address] Dr. Kayley Hatfield IG % 0.6 % Critically high 0.0-0.5 [facility] Comment on above: Performed By: #### P RBC #### [facility] [address] [place] [address] Dr. Kayley Hatfield LYMPH # 1.2 103/ul Normal 1.2-3.8 [facility] Comment on above: Performed By: #### P RBC #### [facility] [address] [place] [address] Dr. Kayley Hatfield Lymphocytes/100 WBC (Bld) 10.9 % Critically low 20.5-60.0 [facility] Comment on above: Performed By: #### P RBC #### [facility] [address] [place] [address] Dr. Kayley Hatfield MANUAL DIFF REQ NO Normal [facility] Comment on above: Performed By: #### P RBC #### [facility] [address] [place] [address] Dr. Kayley Hatfield MCH (RBC) [Entitic mass] 28.4 pg Normal 26.7-34.0 [facility] Comment on above: Performed By: #### P RBC #### [facility] [address] [place] [address] Dr. Kayley Hatfield MCHC (RBC) [Mass/Vol] 30.9 g/dL Normal 29.9-35.2 [facility] Comment on above: Performed By: #### P RBC #### [facility] [address] [place] [address] Dr. Kayley Hatfield MCV (RBC) [Entitic vol] 92.0 fL Normal 81.0-99.0 [facility] Comment on above: Performed By: #### P RBC #### [facility] [address] [place] [address] Dr. Kayley Hatfield MONO # 1.4 103/ul Critically high 0.3-0.8 [facility] Comment on above: Performed By: #### P RBC #### [facility] [address] [place] [address] Dr. Kayley Hatfield Monocytes/100 WBC (Bld) 11.9 % Normal 1.7-12.0 [facility] Comment on above: Performed By: #### P RBC #### [facility] [address] [place] [address] Dr. Kayley Hatfield NEUT # 8.4 103/ul Critically high 1.4-6.5 [facility] Comment on above: Performed By: #### P RBC #### [facility] [address] [place] [address] Dr. Kayley Hatfield Neutrophils/100 WBC (Bld) 74.3 % Normal 43.0-75.0 [facility] Comment on above: Performed By: #### P RBC #### [facility] [address] [place] [address] Dr. Kayley Hatfield Platelet mean volume (Bld) [Entitic vol] 8.8 fL Critically low 9.5-13.5 [facility] Comment on above: Performed By: #### P RBC #### [facility] [address] [place] [address] Dr. Kayley Hatfield PLT 953 103/ul Critically high 150-450 [facility] Comment on above: Performed By: #### P RBC #### [facility] [address] [place] [address] Dr. Kayley Hatfield RBC 3.48 106/ul Critically low 4.20-5.40 [facility] Comment on above: Performed By: #### P RBC #### [facility] [address] [address] [address] Kayley Hatfield WBC 11.3 103/ul Critically high 4.0-11.0 [facility] Comment on above: Performed By: #### P RBC #### [facility] [address] [place] [address] Dr. Kayley Hatfield POINT OF CARE GLUCOSEon 04-08 Glucose [Mass/Vol] 225 mg/dL Critically high 74-106 [facility] Comment on above: Performed By: #### B [id number] #### [facility] [address] [place] [address] Dr. Kayley Hatfield PROF CHEM 8 (BAS METB)on Anion gap [Moles/Vol] 10.7 mmol/L Normal Th [facility] Comment on above: Performed By: #### P RBC #### [facility] [address] [address] [address] Kayley Hatfield Calcium [Mass/Vol] 9.2 mg/dL Normal 8.5-10.1 [facility] Comment on above: Performed By: #### P RBC #### [facility] [address] [place] [address] Dr. Kayley Hatfield Chloride [Moles/Vol] 103 mmol/L Normal 98-107 [facility] Comment on above: Performed By: #### P RBC #### [facility] [address] [place] [address] Dr. Kayley Hatfield CO2 [Moles/Vol] 29.2 mmol/L Normal 21.0-32.0 [facility] Comment on above: Performed By: #### P RBC #### [facility] [address] [place] [address] Dr. Kayley Hatfield Creatinine [Mass/Vol] 0.85 mg/dL Normal 0.55-1.02 [facility] Comment on above: Performed By: #### P RBC #### [facility] [address] [place] [address] Dr. Kayley Hatfield EGFR-AF TUVALUAN >60 Normal >=60 [facility] Comment on above: Performed By: #### P RBC #### [facility] [address] [place] [address] Dr. Kayley Hatfield EGFR-NON AF TUVALUAN >60 Normal >=60 [facility] Comment on above: Performed By: #### P RBC #### [facility] [address] [place] [address] Dr. Kayley Hatfield Glucose [Mass/Vol] 81 mg/dL Normal 74-106 [facility] Comment on above: Performed By: #### P RBC #### [facility] [address] [address] [address] Kayley Hatfield Potassium [Moles/Vol] 3.9 mmol/L Normal 3.5-5.1 [facility] Comment on above: Performed By: #### P RBC #### [facility] [address] [address] [address] Kayley Hatfield Sodium [Moles/Vol] 139 mmol/L Normal 136-145 [facility] Comment on above: Performed By: #### P RBC #### [facility] [address] [address] [address] Kayley Hatfield Urea nitrogen [Mass/Vol] 9.0 mg/dL Normal 7.0-18.0 [facility] Comment on above: Performed By: #### P RBC #### [facility] [address] [address] [address] Kayley Hatfield Urea nitrogen/Creatinine [Mass ratio] 10.6 mg/mg Normal [facility] Comment on above: Performed By: #### P RBC #### [facility] [address] [address] [address] Kayley Hatfield XR CHEST 2 Von [...] MIGUE REYNOSO Date: 2022-04-26 09:59 Normal [facility] BNPon 04-25-2022 Natriuretic peptide B (Bld) [Mass/Vol] 234.0 pg/mL Normal <=900.0 [facility] Comment on above: Performed By: #### P RTELEC #### [facility] [address] [address] [address] Kayley Hatfield CBC AUTO DIFFon 04-25-2022 BASO # 0.1 103/ul Normal 0.0-0.1 [facility] Comment on above: Performed By: #### P RBC #### [facility] [address] [place] [address] Dr. Kayley Hatfield Basophils/100 WBC (Bld) 0.4 % Normal 0.2-2.0 [facility] Comment on above: Performed By: #### P RBC #### [facility] [address] [place] [address] Dr. Kayley Hatfield EO # 0.2 103/ul Normal 0.0-0.7 [facility] Comment on above: Performed By: #### P RBC #### [facility] [address] [place] [address] Dr. Kayley Hatfield Eosinophils/100 WBC (Bld) 1.0 % Normal 0.9-7.0 [facility] Comment on above: Performed By: #### P RBC #### [facility] [address] [place] [address] Dr. Kayley Hatfield Erythrocyte distribution width (RBC) [Ratio] 14.8 % Normal 11.0-15.0 [facility] Comment on above: Performed By: #### P RBC #### [facility] [address] [place] [address] Dr. Kayley Hatfield Hematocrit (Bld) [Volume fraction] 35.4 % Critically low 36.0-48.0 [facility] Comment on above: Performed By: #### P RBC #### [facility] [address] [place] [address] Dr. Kayley Hatfield Hemoglobin (Bld) [Mass/Vol] 10.9 g/dL Critically low 12.0-16.0 [facility] Comment on above: Performed By: #### P RBC #### [facility] [address] [address] [address] Kayley Hatfield IG # 0.08 10e3/ul Critically high 0.00-0.03 [facility] Comment on above: Performed By: #### P RBC #### [facility] [address] [place] [address] Dr. Kayley Hatfield IG % 0.5 % Normal 0.0-0.5 [facility] Comment on above: Performed By: #### P RBC #### [facility] [address] [place] [address] Dr. Kayley Hatfield LYMPH # 1.2 103/ul Normal 1.2-3.8 [facility] Comment on above: Performed By: #### P RBC #### [facility] [address] [place] [address] Dr. Kayley Hatfield Lymphocytes/100 WBC (Bld) 7.4 % Critically low 20.5-60.0 [facility] Comment on above: Performed By: #### P RBC #### [facility] [address] [place] [address] Dr. Kayley Hatfield MANUAL DIFF REQ NO Normal [facility] Comment on above: Performed By: #### P RBC #### [facility] [address] [place] [address] Dr. Kayley Hatfield MCH (RBC) [Entitic mass] 27.9 pg Normal 26.7-34.0 [facility] Comment on above: Performed By: #### P RBC #### [facility] [address] [place] [address] Dr. Kayley Hatfield MCHC (RBC) [Mass/Vol] 30.8 g/dL Normal 29.9-35.2 [facility] Comment on above: Performed By: #### P RBC #### [facility] [address] [place] [address] Dr. Kayley Hatfield MCV (RBC) [Entitic vol] 90.5 fL Normal 81.0-99.0 [facility] Comment on above: Performed By: #### P RBC #### [facility] [address] [address] [address] Kayley Hatfield MONO # 1.5 103/ul Critically high 0.3-0.8 [facility] Comment on above: Performed By: #### P RBC #### [facility] [address] [address] [address] Kayley Hatfield Monocytes/100 WBC (Bld) 8.7 % Normal 1.7-12.0 [facility] Comment on above: Performed By: #### P RBC #### [facility] [address] [address] [address] Kayley Hatfield NEUT # 13.8 103/ul Critically high 1.4-6.5 [facility] Comment on above: Performed By: #### P RBC #### [facility] [address] [place] [address] Dr. Kayley Hatfield Neutrophils/100 WBC (Bld) 82.0 % Critically high 43.0-75.0 [facility] Comment on above: Performed By: #### P RBC #### [facility] [address] [address] [address] Kayley Hatfield Platelet mean volume (Bld) [Entitic vol] 8.9 fL Critically low 9.5-13.5 [facility] Comment on above: Performed By: #### P RBC #### [facility] [address] [address] [address] Kayley Hatfield PLT 1076 103/ul Critically high 150-450 [facility] Comment on above: Performed By: #### P RBC #### [facility] [address] [address] [address] Kayley Hatfield RBC 3.91 106/ul Critically low 4.20-5.40 [facility] Comment on above: Performed By: #### P RBC #### [facility] [address] [address] [address] Kayley Hatfield WBC 16.8 103/ul Critically high 4.0-11.0 [facility] Comment on above: Performed By: #### P RBC #### [facility] [id number] Kayley Hatfield CT HEAD WO CONon [...] MIGUE REYNOSO Date: 2022-04-25 14:59 Normal [facility] CTA CHEST WO W CONon 022 CTA [...] Date: 2022-04-25 15:18 Normal [facility] Covid-19 PCR (CVDTB)on 04-08 SARS-CoV-2 (COVID-19) RNA ELBA+probe Ql (Unsp spec) Not detected Normal NOT DETECTED [facility] Comment on above: Result Comment: When diagnostic [...] for this test is supported by the Deposit of Health and Human Service's declaration that [...] By: #### C VDTBH #### [facility] [address] [place] [address] Dr. Kayley DOBSON URINE PROFILEon 2 Bilirubin Ql (U) Negative Normal NEGATIVE [facility] Comment on above: Performed By: #### C VDTBH #### [facility] [address] [place] [address] Dr. Kayley Hatfield Clarity (U) CLEAR Normal CLEAR [facility] Comment on above: Performed By: #### C VDTBH #### [facility] [address] [place] [address] Dr. Kayley Hatfield Color (U) LT. YELLOW Normal YELLOW [facility] Comment on above: Performed By: #### C VDTBH #### [facility] [address] [place] [address] Dr. Kayley [place] A micrscopic examination will be performed if indicated. Normal [facility] Comment on above: Performed By: #### C VDTBH #### [facility] [address] [place] [address] Dr. Kayley Hatfield Glucose Ql (U) Negative Normal NEGATIVE [facility] Comment on above: Performed By: #### C VDTBH #### [facility] [address] [place] [address] Dr. Kayley Hatfield Hemoglobin Ql (U) TRACE-INTACT Abnormal NEGATIVE [facility] Comment on above: Performed By: #### C VDTBH #### [facility] [address] [place] [address] Dr. Kayley Hatfield Ketones Ql (U) Negative Normal NEGATIVE [facility] Comment on above: Performed By: #### C VDTBH #### [facility] [address] [place] [address] Dr. Kayley Hatfield LEUKOCYTES Negative Normal NEGATIVE [facility] Comment on above: Performed By: #### C VDTBH #### [facility] [address] [place] [address] Dr. Kayley Hatfield Nitrite Ql (U) Negative Normal NEGATIVE [facility] Comment on above: Performed By: #### C VDTBH #### [facility] [address] [place] [address] Dr. Kayley Hatfield pH (U) 8.0 [pH] Normal 5-9 [facility] Comment on above: Performed By: #### C VDTBH #### [facility] [address] [place] [address] Dr. Kayley Hatfield SPEC GRAVITY 1.010 Normal 1.005-<=1.025 [facility] Comment on above: Performed By: #### C VDTBH #### [facility] [address] [place] [address] Dr. Kayley Hatfield UA PROTEIN Negative Normal NEGATIVE/ TRACE [facility] Comment on above: Performed By: #### C VDTBH #### [facility] [address] [place] [address] Dr. Kayley Hatfield UR MICRO IND INDICATED Normal [facility] Comment on above: Performed By: #### C VDTBH #### [facility] [address] [place] [address] Dr. Kayley Hatfield Urobilinogen Qn (U) 0.2 {Lu'U}/dL Normal 0.2 - 1. 0 [facility] Comment on above: Performed By: #### C VDTBH #### [facility] [address] [place] [address] Dr. Kayley Hatfield LACTATE/LACTIC ACIDon 2021 Lactate [Moles/Vol] 1.1 mmol/L Normal 0.4-1.9 [facility] Comment on above: Performed By: #### P RTELEC #### [facility] [address] [place] [address] Dr. Kayley Hatfield PH VENOUS BLOODon 04-25-2022 PCO2 VENOUS 54.5 mmHg Critically high 40.0-52.0 [facility] Comment on above: Performed By: #### L DH #### [facility] [address] [place] [address] Dr. Kayley Hatfield pH VENOUS 7.385 Normal 7.330-7.430 [facility] Comment on above: Performed By: #### L DH #### [facility] [address] [address] [address] Kayley Hatfield POINT OF CARE GLUCOSEon 04-08 Glucose [Mass/Vol] 91 mg/dL Normal 74-106 [facility] Comment on above: Performed By: #### O BSCRN #### [facility] [address] [place] [address] Dr. Kayley Hatfield Glucose [Mass/Vol] 116 mg/dL Critically high 74-106 [facility] Comment on above: Performed By: #### O BSCRN #### [facility] [address] [place] [address] Dr. Kayley Hatfield PROF 14(COMP METB)on 022 Albumin [Mass/Vol] 2.7 g/dL Critically low 3.4-5.0 [facility] Comment on above: Performed By: #### O BSCRN #### [facility] [address] [place] [address] Dr. Kayley Hatfield Albumin/Globulin [Mass ratio] 0.6 {ratio} Normal [facility] Comment on above: Performed By: #### O BSCRN #### [facility] [address] [place] [address] Dr. Kayley Hatfield ALP [Catalytic activity/Vol] 132 U/L Critically high 46-116 [facility] Comment on above: Performed By: #### O BSCRN #### [facility] [address] [place] [address] Dr. Kayley Hatfield ALT [Catalytic activity/Vol] 21 U/L Normal 14-59 [facility] Comment on above: Performed By: #### O BSCRN #### [facility] [address] [address] [address] Kayley Hatfield Anion gap [Moles/Vol] 8.1 mmol/L Normal [facility] Comment on above: Performed By: #### O BSCRN #### [facility] [address] [place] [address] Dr. Kayley Hatfield AST [Catalytic activity/Vol] 23 U/L Normal 15-37 [facility] Comment on above: Performed By: #### O BSCRN #### [facility] [address] [address] [address] Kayley Hatfield Bilirubin [Mass/Vol] 0.3 mg/dL Normal 0.2-1.0 [facility] Comment on above: Performed By: #### O BSCRN #### [facility] [address] [address] [address] Kayley Hatfield Calcium [Mass/Vol] 9.4 mg/dL Normal 8.5-10.1 [facility] Comment on above: Performed By: #### O BSCRN #### [facility] [address] [place] [address] Dr. Kayley Hatfield Chloride [Moles/Vol] 100 mmol/L Normal 98-107 [facility] Comment on above: Performed By: #### O BSCRN #### [facility] [address] [place] [address] Dr. Kayley Hatfield CO2 [Moles/Vol] 31.8 mmol/L Normal 21.0-32.0 [facility] Comment on above: Performed By: #### O BSCRN #### [facility] [address] [place] [address] Dr. Kayley Hatfield Creatinine [Mass/Vol] 0.79 mg/dL Normal 0.55-1.02 [facility] Comment on above: Performed By: #### O BSCRN #### [facility] [address] [place] [address] Dr. Kayley Hatfield EGFR-AF TUVALUAN >60 Normal >=60 [facility] Comment on above: Performed By: #### O BSCRN #### [facility] [address] [place] [address] Dr. Kayley Hatfield EGFR-NON AF TUVALUAN >60 Normal >=60 [facility] Comment on above: Performed By: #### O BSCRN #### [facility] [address] [place] [address] Dr. Kayley Hatfield Globulin (S) [Mass/Vol] 4.2 g/dL Normal [facility] Comment on above: Performed By: #### O BSCRN #### [facility] [address] [address] [address] Kayley Hatfield Glucose [Mass/Vol] 134 mg/dL Critically high 74-106 [facility] Comment on above: Performed By: #### O BSCRN #### [facility] [address] [address] [address] Kayley Hatfield Potassium [Moles/Vol] 3.9 mmol/L Normal 3.5-5.1 [facility] Comment on above: Performed By: #### O BSCRN #### [facility] [address] [address] [address] Kayley Hatfield Protein [Mass/Vol] 6.9 g/dL Normal 6.4-8.2 [facility] Comment on above: Performed By: #### O BSCRN #### [facility] [address] [address] [address] Kayley Hatfield Sodium [Moles/Vol] 136 mmol/L Normal 136-145 [facility] Comment on above: Performed By: #### O BSCRN #### [facility] [address] [address] [address] Kayley Hatfield Urea nitrogen [Mass/Vol] 10.0 mg/dL Normal 7.0-18.0 [facility] Comment on above: Performed By: #### O BSCRN #### [facility] [address] [address] [address] Kayley Hatfield Urea nitrogen/Creatinine [Mass ratio] 12.7 mg/mg Normal [facility] Comment on above: Performed By: #### O BSCRN #### [facility] [address] [address] [address] Kayley Hatfield PROTIMEon 04-25-2022 INR Coag (PPP) [Relative time] 1.08 {INR} [facility] Comment on above: Performed By: #### P RTELEC #### [facility] [address] [address] [address] Kayley Hatfield INR GUIDELINES SEE BELOW Normal [facility] Comment on above: Result Comment: JOAQUIM RED INR: 2.0 - 3.0 CONDITIONS NOT LISTED BELOW 2.5 - 3.5 FOR PROSTHETIC HEART VALVE REPLACEMENT 2.5 - 3.5 RECURRENT THROMBOSIS Performed By: #### P RTELEC #### [facility] [address] [place] [address] Dr. Kayley Hatfield PT Coag (PPP) [Time] 11.6 s Normal 9.0-11.6 [facility] Comment on above: Performed By: #### P RTELEC #### [facility] [address] [place] [address] Dr. Kayley Hatfield PTTon 04-25-2022 aPTT Coag (Bld) [Time] 31.1 s Normal 22.3-36.2 [facility] Comment on above: Performed By: #### P RTELEC #### [facility] [address] [place] [address] Dr. Kayley Hatfield TROPONIN, HIGH SENSITIVITYon 04-25-2022 HSTROP 9.6 pg/mL Normal 4.0-51.3 [facility] Comment on above: Result Comment: CUT- OFF POINTS HAVE BEEN ESTABLISHED BASED ON THE FOURTH UNIVERSAL DEFINITIONS OF MYOCARDIAL INFARCTION. THE UPPER REFERENCE LIMIT (URL) OF TROPONIN, DEFINED THE 99TH PERCENTILE OF cTnI DISTRIBUTION IN A REFERENCE POPULATION, HAS BEEN CONFIRMED THE DECISION THRESHOLD FOR AK DIAGNOSIS. Performed By: #### P RTELEC #### [facility] [address] [place] [address] Dr. Kayley Hatfield TSHon 04-25-2022 TSH 1.431 uIU/mL Normal 0.358-3.[address] [facility] Comment on above: Performed By: #### P RTELEC #### [facility] [address] [place] [address] Dr. Kayley Hatfield URINE MICROSCOPIC ONLYon BACTERIA NONE SEEN Normal NONE SEEN [facility] Comment on above: Performed By: #### C VDTBH #### [facility] [address] [place] [address] Dr. Kayley Hatfield Bacteria identified Cx Nom (U) NOT INDICATED Normal [facility] Comment on above: Performed By: #### C VDTBH #### [facility] [address] [place] [address] Dr. Kayley Hatfield CAST NONE SEEN Normal NONE SEEN [facility] Comment on above: Performed By: #### C VDTBH #### [facility] [address] [place] [address] Dr. Kayley Hatfield Crystals LM Nom (Urine sed) NONE SEEN Normal NONE SEEN [facility] Comment on above: Performed By: #### C VDTBH #### [facility] [address] [place] [address] Dr. Kayley Hatfield Epithelial cells LM Ql (Urine sed) FEW Abnormal NONE SEEN /RARE [facility] Comment on above: Performed By: #### C VDTBH #### [facility] [address] [place] [address] Dr. Kayley Hatfield MUCOUS NONE SEEN Normal NONE SEEN [facility] Comment on above: Performed By: #### C VDTBH #### [facility] [address] [place] [address] Dr. Kayley Hatfield RBC 2-5 Abnormal 0-2 [facility] Comment on above: Performed By: #### C VDTBH #### [facility] [address] [place] [address] Dr. Kayley Hatfield WBC NONE SEEN Normal NONE SEEN [facility] Comment on above: Performed By: #### C VDTBH #### [facility] [address] [place] [address] Dr. Kayley Hatfield IMMUNOFIXATION(KENNETH),PROTEIN ELEC(PE),[facility] 03-31-2022 Albumin [Mass/Vol] 3.6 g/dL Normal 2.9-4.4 [facility] Comment on above: Performed By: #### B LDCX1 #### [facility] [address] [place] [address] Dr. Kayley Hatfield Albumin/Globulin [Mass ratio] 1.6 {ratio} Normal 0.7-1.7 [facility] Comment on above: Performed By: #### B LDCX1 #### [facility] [address] [place] [address] Dr. Kayley Hatfield Bbjkf-6-Ozhkcizb 0.3 g/dL Normal 0.0-0.4 [facility] Comment on above: Performed By: #### B LDCX1 #### [facility] [address] [address] [address] Kayley Hatfield Xcrty-6-Lmaxyrfb 0.8 g/dL Normal 0.4-1.0 [facility] Comment on above: Performed By: #### B LDCX1 #### [facility] [address] [address] [address] Kayley Hatfield Beta Globulin 1.0 g/dL Normal 0.7-1.[address] [facility] Comment on above: Performed By: #### B LDCX1 #### [facility] [address] [place] [address] Dr. Kayley Hatfield Free [place] Lt Chains,S 16.0 mg/L Normal 3.3-19.4 [facility] Comment on above: Performed By: #### B LDCX1 #### [facility] [address] [place] [address] Dr. Kaylye Hatfield Free [place] Lt Chains,S 10.1 mg/L Normal 5.7-26.3 [facility] Comment on above: Performed By: #### B LDCX1 #### [facility] [address] [place] [address] Dr. Kayley Hatfield Gamma Globulin 0.4 g/dL Normal 0.4-1.8 [facility] Comment on above: Performed By: #### B LDCX1 #### [facility] [address] [place] [address] Dr. Kayley Hatfield Globulin (S) [Mass/Vol] 2.4 g/dL Normal 2.2-3.9 [facility] Comment on above: Performed By: #### B LDCX1 #### [facility] [address] [place] [address] Dr. Kayley Hatfield Immunofixation Result, Serum Comment Normal [facility] Comment on above: Result Comment: No m onoclonality detected. Performed By: #### B LDCX1 #### [facility] [address] [address] [address] Kayley Hatfield Immunoglobulin A, Qn, Serum 128 mg/dL Normal 87-352 [facility] Comment on above: Performed By: #### B LDCX1 #### [facility] [address] [address] [address] Kayley Hatfield Immunoglobulin G, Qn, Serum 487 mg/dL Critically low 586-1602 [facility] Comment on above: Performed By: #### B LDCX1 #### [facility] [address] [address] [address] Kayley Hatfield Immunoglobulin M, Qn, Serum 38 mg/dL Normal 26-217 [facility] Comment on above: Performed By: #### B LDCX1 #### [facility] [address] [place] [address] Dr. Kayley Hatfield [place]/Lambda Ratio, S 1.58 Normal 0.26-1.65 [facility] Comment on above: Performed By: #### B LDCX1 #### [facility] [address] [place] [address] Dr. Kayley Hatfield M-Sandip Not Observed Normal Not Observed [facility] Comment on above: Performed By: #### B LDCX1 #### [facility] [address] [place] [address] Dr. Kayley Hatfield PDF . Normal [facility] Comment on above: Performed By: #### B LDCX1 #### [facility] [address] [place] [address] Dr. Kayley Hatfield Please note: Comment Normal [facility] Comment on above: Result Comment: Prot ein electrophoresis scan will follow via computer, mail, or towing pilot delivery. Performed By: #### B LDCX1 #### [facility] [address] [place] [address] Dr. Kayley Hatfield Protein [Mass/Vol] 6.0 g/dL Normal 6.0-8.5 [facility] Comment on above: Performed By: #### B LDCX1 #### [facility] [address] [place] [address] Dr. Kayley Hatfield CBC AUTO DIFFon 03-30-2022 BASO # 0.1 103/ul Normal 0.0-0.1 [facility] Comment on above: Performed By: #### P RBC #### [facility] [address] [address] [address] Kayley Hatfield Basophils/100 WBC (Bld) 0.4 % Normal 0.2-2.0 [facility] Comment on above: Performed By: #### P RBC #### [facility] [address] [address] [address] Kayley Hatfield EO # 0.2 103/ul Normal 0.0-0.7 [facility] Comment on above: Performed By: #### P RBC #### [facility] [address] [address] [address] Kayley Hatfield Eosinophils/100 WBC (Bld) 1.1 % Normal 0.9-7.0 [facility] Comment on above: Performed By: #### P RBC #### [facility] [address] [address] [address] Kayley Hatfield Erythrocyte distribution width (RBC) [Ratio] 0.0 % Critically low 11.0-15.0 [facility] Comment on above: Performed By: #### P RBC #### [facility] [address] [address] [address] Kayley Hatfield Hematocrit (Bld) [Volume fraction] 24.0 % Critically low 36.0-48.0 [facility] Comment on above: Performed By: #### P RBC #### [facility] [address] [address] [address] Kayley Hatfield Hemoglobin (Bld) [Mass/Vol] 7.2 g/dL Critically low 12.0-16.0 [facility] Comment on above: Performed By: #### P RBC #### [facility] [address] [address] [address] Kayley Hatfield IG # 0.10 10e3/ul Critically high 0.00-0.03 [facility] Comment on above: Performed By: #### P RBC #### [facility] [address] [address] [address] Kayley Hatfield IG % 0.6 % Critically high 0.0-0.5 [facility] Comment on above: Performed By: #### P RBC #### [facility] [address] [address] [address] Kayley Hatfield LYMPH # 1.5 103/ul Normal 1.2-3.8 [facility] Comment on above: Performed By: #### P RBC #### [facility] [address] [place] [address] Dr. Kayley Hatfield Lymphocytes/100 WBC (Bld) 9.0 % Critically low 20.5-60.0 [facility] Comment on above: Performed By: #### P RBC #### [facility] [address] [place] [address] Dr. Kayley Hatfield MANUAL DIFF REQ NO Normal [facility] Comment on above: Performed By: #### P RBC #### [facility] [address] [address] [address] Kayley Hatfield MCH (RBC) [Entitic mass] 27.3 pg Normal 26.7-34.0 [facility] Comment on above: Performed By: #### P RBC #### [facility] [address] [place] [address] Dr. Kayley Hatfield MCHC (RBC) [Mass/Vol] 30.0 g/dL Normal 29.9-35.2 [facility] Comment on above: Performed By: #### P RBC #### [facility] [address] [place] [address] Dr. Kayley Hatfield MCV (RBC) [Entitic vol] 90.9 fL Normal 81.0-99.0 [facility] Comment on above: Performed By: #### P RBC #### [facility] [address] [place] [address] Dr. Kayley Hatfield MONO # 2.3 103/ul Critically high 0.3-0.8 [facility] Comment on above: Performed By: #### P RBC #### [facility] [address] [place] [address] Dr. Kayley Hatfield Monocytes/100 WBC (Bld) 13.8 % Critically high 1.7-12.0 [facility] Comment on above: Performed By: #### P RBC #### [facility] [address] [address] [address] Kayley Hatfield NEUT # 12.7 103/ul Critically high 1.4-6.5 [facility] Comment on above: Performed By: #### P RBC #### [facility] [address] [address] [address] Kayley Hatfield Neutrophils/100 WBC (Bld) 75.1 % Critically high 43.0-75.0 [facility] Comment on above: Performed By: #### P RBC #### [facility] [address] [place] [address] Dr. Kayley Hatfield Platelet mean volume (Bld) [Entitic vol] 8.9 fL Critically low 9.5-13.5 [facility] Comment on above: Performed By: #### P RBC #### [facility] [address] [address] [address] Kayley Hatfield PLT 782 103/ul Critically high 150-450 [facility] Comment on above: Performed By: #### P RBC #### [facility] [address] [place] [address] Dr. Kayley Hatfield RBC 2.64 106/ul Critically low 4.20-5.40 [facility] Comment on above: Performed By: #### P RBC #### [facility] [address] [address] [address] Kayley Hatfield WBC 16.9 103/ul Critically high 4.0-11.0 [facility] Comment on above: Performed By: #### P RBC #### [facility] [address] [place] [address] Dr. Kayley Hatfield PRBC LEUKOREDUCEDon 03-30-20 ABO and Rh group Nom (Bld) Cross Match Result Compatible Unit Blood Type O Pos Unit Number [id number] Status Information Transfused Product ID Red Blood Cells Product Code [id number] Cross Match Result Compatible Unit Blood Type O Pos Unit Number [id number] Status Information Transfused Product ID Red Blood Cells Product Code [id number] Normal [facility] Comment on above: Performed By: #### P RBC #### [facility] [address] [place] [address] Dr. Kayley Hatfield PROF CHEM 8 (BAS METB)on Anion gap [Moles/Vol] 6.9 mmol/L Normal [facility] Comment on above: Performed By: #### P RBC #### [facility] [address] [place] [address] Dr. Kayley Hatfield Calcium [Mass/Vol] 8.7 mg/dL Normal 8.5-10.1 [facility] Comment on above: Performed By: #### P RBC #### [facility] [address] [place] [address] Dr. Kayley Hatfield Chloride [Moles/Vol] 101 mmol/L Normal 98-107 [facility] Comment on above: Performed By: #### P RBC #### [facility] [address] [place] [address] Dr. Kayley Hatfield CO2 [Moles/Vol] 33.3 mmol/L Critically high 21.0-32.0 [facility] Comment on above: Performed By: #### P RBC #### [facility] [address] [place] [address] Dr. Kayley Hatfield Creatinine [Mass/Vol] 0.83 mg/dL Normal 0.55-1.02 [facility] Comment on above: Performed By: #### P RBC #### [facility] [address] [place] [address] Dr. Kayley Hatfield EGFR-AF TUVALUAN >60 Normal >=60 [facility] Comment on above: Performed By: #### P RBC #### [facility] [address] [place] [address] Dr. Kayley Hatfield EGFR-NON AF TUVALUAN >60 Normal >=60 [facility] Comment on above: Performed By: #### P RBC #### [facility] [address] [place] [address] Dr. Kayley Hatfield Glucose [Mass/Vol] 94 mg/dL Normal 74-106 [facility] Comment on above: Performed By: #### P RBC #### [facility] [address] [place] [address] Dr. Kayley Hatfield Potassium [Moles/Vol] 4.2 mmol/L Normal 3.5-5.1 [facility] Comment on above: Performed By: #### P RBC #### [facility] [address] [place] [address] Dr. Kayley Hatfield Sodium [Moles/Vol] 137 mmol/L Normal 136-145 [facility] Comment on above: Performed By: #### P RBC #### [facility] [address] [place] [address] Dr. Kayley Hatfield Urea nitrogen [Mass/Vol] 15.0 mg/dL Normal 7.0-18.0 [facility] Comment on above: Performed By: #### P RBC #### [facility] [address] [place] [address] Dr. Kayley Hatfield Urea nitrogen/Creatinine [Mass ratio] 18.1 mg/mg Normal [facility] Comment on above: Performed By: #### P RBC #### [facility] [address] [place] [address] Dr. Kayley Hatfield PROTEIN ELECTROPHERESISon Albumin [Mass/Vol] 3.4 g/dL Normal 2.9-4.4 [facility] Comment on above: Performed By: #### P RTELEC #### [facility] [address] [place] [address] Dr. Kayley Hatfield Albumin/Globulin [Mass ratio] 1.3 {ratio} Normal 0.7-1.7 [facility] Comment on above: Performed By: #### P RTELEC #### [facility] [address] [place] [address] Dr. Kayley Hatfield Gyxui-9-Cmjzpkjs 0.3 g/dL Normal 0.0-0.4 [facility] Comment on above: Performed By: #### P RTELEC #### [facility] [address] [place] [address] Dr. Kayley Hatfield Nlfsk-6-Oxhhfxoa 0.8 g/dL Normal 0.4-1.0 [facility] Comment on above: Performed By: #### P RTELEC #### [facility] [address] [place] [address] Dr. Kayley Hatfield Beta Globulin 1.0 g/dL Normal 0.7-1.[address] [facility] Comment on above: Performed By: #### P RTELEC #### [facility] [address] [place] [address] Dr. Kayley Hatfield Gamma Globulin 0.5 g/dL Normal 0.4-1.8 [facility] Comment on above: Performed By: #### P RTELEC #### [facility] [address] [place] [address] Dr. Kayley Hatfield Globulin (S) [Mass/Vol] 2.6 g/dL Normal 2.2-3.9 [facility] Comment on above: Performed By: #### P RTELEC #### [facility] [address] [place] [address] Dr. Kayley Hatfield M-Sandip Not Observed Normal Not Observed [facility] Comment on above: Performed By: #### P RTELEC #### [facility] [address] [place] [address] Dr. Kayley Hatfield PDF . Normal [facility] Comment on above: Performed By: #### P RTELEC #### [facility] [address] [place] [address] Dr. Kayley Hatfield Please note: Comment Normal [facility] Comment on above: Result Comment: Prot ein electrophoresis scan will follow via computer, mail, or towing pilot delivery. Performed By: #### P RTELEC #### [facility] [address] [place] [address] Dr. Kayley Hatfield Protein [Mass/Vol] 6.0 g/dL Normal 6.0-8.5 [facility] Comment on above: Performed By: #### P RTELEC #### [facility] [address] [place] [address] Dr. Kayley Hatfield XR CHEST 1 Von [...] Date: 2022-03-30 06:17 Normal [facility] CBC W MANUAL DIFFon 03-29-20 22 ANISOCYTOSIS 2+ Normal [facility] Comment on above: Performed By: #### C VDTBH #### [facility] [address] [place] [address] Dr. Kayley Hatfield ATYPICAL LYMPH # Normal [facility] Comment on above: Performed By: #### C VDTBH #### [facility] [address] [place] [address] Dr. Kayley Hatfield ATYPICAL LYMPH % Normal [facility] Comment on above: Performed By: #### C VDTBH #### [facility] [address] [place] [address] Dr. Kayley Hatfield BAND # 0.0 103/ul Normal 0.0-0.3 [facility] Comment on above: Performed By: #### C VDTBH #### [facility] [address] [place] [address] Dr. Kayley Hatfield BAND % 0 % Normal 0-5 [facility] Comment on above: Performed By: #### C VDTBH #### [facility] [address] [place] [address] Dr. Kayley Hatfield BASOM # 0.59 103/ul Critically high 0.00-0.10 [facility] Comment on above: Performed By: #### C VDTBH #### [facility] [address] [place] [address] Dr. Kayley Hatfield BASOM % 3.0 % Critically high 0.2-2.0 [facility] Comment on above: Performed By: #### C VDTBH #### [facility] [address] [place] [address] Dr. Kayley Hatfield BLAST # Normal [facility] Comment on above: Performed By: #### C VDTBH #### [facility] [address] [place] [address] Dr. Kayley Hatfield BLAST % Normal [facility] Comment on above: Performed By: #### C VDTBH #### [facility] [address] [place] [address] Dr. Kayley Hatfield CORRECTED WBC Normal 4.0-11.[address] [facility] Comment on above: Performed By: #### C VDTBH #### [facility] [address] [place] [address] Dr. Kayley Hatfield EOS # 0.40 103/ul Normal 0.00-0.70 [facility] Comment on above: Performed By: #### C VDTBH #### [facility] [address] [place] [address] Dr. Kayley Hatfield EOS% 2.0 % Normal 0.9-7.0 [facility] Comment on above: Performed By: #### C VDTBH #### [facility] [address] [place] [address] Dr. Kayley Hatfield HCT 31.1 % Critically low 36.0-48.0 [facility] Comment on above: Performed By: #### C VDTBH #### [facility] [address] [place] [address] Dr. Kayley Hatfield HGB 9.7 g/dl Critically low 12.0-16.0 [facility] Comment on above: Performed By: #### C VDTBH #### [facility] [address] [place] [address] Dr. Kayley Hatfield HYPOCHROMASIA 1+ Normal [facility] Comment on above: Performed By: #### C VDTBH #### [facility] [address] [place] [address] Dr. Kayley Hatfield LYMPHM # 4.75 103/ul Critically high 1.20-3.80 [facility] Comment on above: Performed By: #### C VDTBH #### [facility] [address] [place] [address] Dr. Kayley Hatfield LYMPHM% 24.0 % Normal 20.5-60.0 [facility] Comment on above: Performed By: #### C VDTBH #### [facility] [address] [place] [address] Dr. Kayley Hatfield MCH 27.0 pg Normal 26.7-34.0 [facility] Comment on above: Performed By: #### C VDTBH #### [facility] [address] [place] [address] Dr. Kayley Hatfield MCHC 31.2 g/dl Normal 29.9-35.2 [facility] Comment on above: Performed By: #### C VDTBH #### [facility] [address] [place] [address] Dr. Kayley Hatfield MCV 86.6 fL Normal 81.0-99.0 [facility] Comment on above: Performed By: #### C VDTBH #### [facility] [address] [place] [address] Dr. Kayley Hatfield METAMYELOCYTE # Normal [facility] Comment on above: Performed By: #### C VDTBH #### [facility] [address] [place] [address] Dr. Kayley Hatfield METAMYELOCYTE % Normal [facility] Comment on above: Performed By: #### C VDTBH #### [facility] [address] [place] [address] Dr. Kayley Hatfield MONOM# 0.59 103/ul Normal 0.30-0.80 [facility] Comment on above: Performed By: #### C VDTBH #### [facility] [address] [address] [address] Kayley Hatfield MONOM% 3.0 % Normal 1.7-12.0 [facility] Comment on above: Performed By: #### C VDTBH #### [facility] [address] [address] [address] Kayley Hatfield MPV 8.4 fL Critically low 9.5-13.5 [facility] Comment on above: Performed By: #### C VDTBH #### [facility] [address] [place] [address] Dr. Kayley Hatfield MYELOCYTE # Normal [facility] Comment on above: Performed By: #### C VDTBH #### [facility] [address] [place] [address] Dr. Kayley Hatfield MYELOCYTE % Normal [facility] Comment on above: Performed By: #### C VDTBH #### [facility] [address] [place] [address] Dr. Kayley Hatfield NRBC Normal [facility] Comment on above: Performed By: #### C VDTBH #### [facility] [address] [address] [address] Kayley Hatfield OVALOCYTES SLIGHT Normal [facility] Comment on above: Performed By: #### C VDTBH #### [facility] [address] [place] [address] Dr. Kayley Hatfield PLT 950 103/ul Critically high 150-450 [facility] Comment on above: Performed By: #### C VDTBH #### [facility] [address] [place] [address] Dr. Kayley Hatfield RBC 3.59 106/ul Critically low 4.20-5.40 [facility] Comment on above: Performed By: #### C VDTBH #### [facility] [address] [place] [address] Dr. Kayley Hatfield RDW 26.6 % Critically high 11.0-15.0 [facility] Comment on above: Performed By: #### C VDTBH #### [facility] [address] [address] [address] Kayley Hatfield SEG # 13.46 103/ul Critically high 1.40-6.50 [facility] Comment on above: Performed By: #### C VDTBH #### [facility] [address] [place] [address] Dr. Kayley Hatfield SEG % 68.0 % Normal 43.0-75.0 [facility] Comment on above: Performed By: #### C VDTBH #### [facility] [address] [address] [address] Kayley Hatfield WBC 19.8 103/ul Critically high 4.0-11.0 [facility] Comment on above: Performed By: #### C VDTBH #### [facility] [address] [place] [address] Dr. Kayley Hatfield PROF CHEM 8 (BAS METB)on Anion gap [Moles/Vol] 8.6 mmol/L Normal [facility] Comment on above: Performed By: #### L #### [facility] [address] [place] [address] Dr. Kayley Hatfield Calcium [Mass/Vol] 8.9 mg/dL Normal 8.5-10.1 [facility] Comment on above: Performed By: #### L #### [facility] [address] [place] [address] Dr. Kayley Hatfield Chloride [Moles/Vol] 102 mmol/L Normal 98-107 [facility] Comment on above: Performed By: #### L DH #### [facility] [address] [place] [address] Dr. Kayley Hatfield CO2 [Moles/Vol] 34.3 mmol/L Critically high 21.0-32.0 [facility] Comment on above: Performed By: #### L DH #### [facility] [address] [place] [address] Dr. Kayley Hatfield Creatinine [Mass/Vol] 0.86 mg/dL Normal 0.55-1.02 [facility] Comment on above: Performed By: #### L DH #### [facility] [address] [address] [address] Kayley Hatfield EGFR-AF TUVALUAN >60 Normal >=60 [facility] Comment on above: Performed By: #### L DH #### [facility] [address] [place] [address] Dr. Kayley Hatfield EGFR-NON AF TUVALUAN >60 Normal >=60 [facility] Comment on above: Performed By: #### L DH #### [facility] [address] [address] [address] Kayley Hatfield Glucose [Mass/Vol] 102 mg/dL Normal 74-106 [facility] Comment on above: Performed By: #### L DH #### [facility] [address] [place] [address] Dr. Kayley Hatfield Potassium [Moles/Vol] 3.9 mmol/L Normal 3.5-5.1 [facility] Comment on above: Performed By: #### L DH #### [facility] [address] [place] [address] Dr. Kayley Hatfield Sodium [Moles/Vol] 141 mmol/L Normal 136-145 [facility] Comment on above: Performed By: #### L DH #### [facility] [address] [place] [address] Dr. Kayley Hatfield Urea nitrogen [Mass/Vol] 20.0 mg/dL Critically high 7.0-18.0 [facility] Comment on above: Performed By: #### L DH #### [facility] [address] [place] [address] Dr. Kayley Hatfield Urea nitrogen/Creatinine [Mass ratio] 23.3 mg/mg Normal [facility] Comment on above: Performed By: #### L DH #### [facility] [address] [place] [address] Dr. Kayley Hatfield XR CHEST 1 Von [...] Date: 2022-03-29 13:26 Normal [facility] XR CHEST 1 V EXAMINATION: XR CHES [...] Date: 2022-03-29 11:37 Normal [facility] XR CHEST 1 V EXAMINATION: XR CHES [...] MIGUE ANGELES Date: 2022-03-29 07:32 Normal [facility] XR CHEST 1 V EXAM: XR CHEST [...] Date: 2022-03-28 22:40 Normal [facility] CBC W MANUAL DIFFon 03-28-20 22 ANISOCYTOSIS 3+ Normal [facility] Comment on above: Performed By: #### C ALONZO #### [facility] [address] [place] [address] Dr. Kayley Hatfield ATYPICAL LYMPH # Normal [facility] Comment on above: Performed By: #### C BCKATHY #### [facility] [address] [place] [address] Dr. Kayley Hatfield ATYPICAL LYMPH % Normal [facility] Comment on above: Performed By: #### C BCKATHY #### [facility] [address] [place] [address] Dr. Kayley Hatfield BAND # 0.3 103/ul Normal 0.0-0.3 [facility] Comment on above: Performed By: #### C BCKATHY #### [facility] [address] [place] [address] Dr. Kayley Hatfield BAND % 2 % Normal 0-5 [facility] Comment on above: Performed By: #### C BCMAN #### [facility] [address] [place] [address] Dr. Kayley Hatfield BASOM # 0.00 103/ul Normal 0.00-0.10 [facility] Comment on above: Performed By: #### C BCMAN #### [facility] [address] [place] [address] Dr. Kayley Hatfield BASOM % 0.0 % Critically low 0.2-2.0 [facility] Comment on above: Performed By: #### C BCKATHY #### [facility] [address] [place] [address] Dr. Kayley Hatfield BLAST # Normal [facility] Comment on above: Performed By: #### C ALONZO #### [facility] [address] [place] [address] Dr. Kayley Hatfield BLAST % Normal [facility] Comment on above: Performed By: #### C ALONZO #### [facility] [address] [address] [address] Kayley Hatfield CORRECTED WBC Normal 4.0-11.0 [facility] Comment on above: Performed By: #### C ALONZO #### [facility] [address] [place] [address] Dr. Kayley Hatfield EOS # 0.00 103/ul Normal 0.00-0.70 [facility] Comment on above: Performed By: #### C ALONZO #### [facility] [address] [place] [address] Dr. Kayley Hatfield EOS% 0.0 % Critically low 0.9-7.0 [facility] Comment on above: Performed By: #### C ALONZO #### [facility] [address] [place] [address] Dr. Kayley Hatfield HCT 23.6 % Critically low 36.0-48.0 [facility] Comment on above: Performed By: #### C ALONZO #### [facility] [address] [place] [address] Dr. Kayley Hatfield HGB 6.8 g/dl Critically low 12.0-16.0 [facility] Comment on above: Performed By: #### C ALONZO #### [facility] [address] [place] [address] Dr. Kayley Hatfield HYPOCHROMASIA 3+ Normal [facility] Comment on above: Performed By: #### C ALONZO #### [facility] [address] [place] [address] Dr. Kayley Hatfield LYMPHM # 1.17 103/ul Critically low 1.20-3.80 [facility] Comment on above: Performed By: #### C ALONZO #### [facility] [address] [address] [address] Kayley Hatfield LYMPHM% 7.0 % Critically low 20.5-60.0 [facility] Comment on above: Performed By: #### C ALONZO #### [facility] [address] [address] [address] Kayley Hatfield MCH 24.6 pg Critically low 26.7-34.0 [facility] Comment on above: Performed By: #### C ALONZO #### [facility] [address] [place] [address] Dr. Kayley Hatfield MCHC 28.8 g/dl Critically low 29.9-35.2 [facility] Comment on above: Performed By: #### C ALONZO #### [facility] [address] [place] [address] Dr. Kayley Hatfield MCV 85.5 fL Normal 81.0-99.0 [facility] Comment on above: Performed By: #### C ALONZO #### [facility] [address] [place] [address] Dr. Kayley Hatfield METAMYELOCYTE # Normal [facility] Comment on above: Performed By: #### C ALONZO #### [facility] [address] [place] [address] Dr. Kayley Hatfield METAMYELOCYTE % Normal [facility] Comment on above: Performed By: #### C ALONZO #### [facility] [address] [place] [address] Dr. Kayley Hatfield MONOM# 0.50 103/ul Normal 0.30-0.80 [facility] Comment on above: Performed By: #### C ALONZO #### [facility] [address] [place] [address] Dr. Kayley Hatfield MONOM% 3.0 % Normal 1.7-12.0 [facility] Comment on above: Performed By: #### C ALONZO #### [facility] [address] [place] [address] Dr. Kayley Hatfield MPV 8.6 fL Critically low 9.5-13.5 [facility] Comment on above: Performed By: #### C BCMAN #### [facility] [address] [place] [address] Dr. Kayley Hatfield MYELOCYTE # Normal [facility] Comment on above: Performed By: #### C BCMAN #### [facility] [address] [address] [address] Kayley Hatfield MYELOCYTE % Normal [facility] Comment on above: Performed By: #### C BCMAN #### [facility] [address] [address] [address] Kayley Hatfield NRBC Normal [facility] Comment on above: Performed By: #### C ALONZO #### [facility] [address] [place] [address] Dr. Kayley Hatfield OVALOCYTES SLIGHT Normal [facility] Comment on above: Performed By: #### C ALONZO #### [facility] [address] [address] [address] Kayley Hatfield PLT 1384 103/ul Critically high 150-450 [facility] Comment on above: Performed By: #### C ALONZO #### [facility] [address] [address] [address] Kayley Hatfield RBC 2.76 106/ul Critically low 4.20-5.40 [facility] Comment on above: Performed By: #### C ALONZO #### [facility] [address] [address] [address] Kayley Hatfield RDW 0.0 % Critically low 11.0-15.0 [facility] Comment on above: Performed By: #### C BCMAN #### [facility] [address] [address] [address] Kayley Hatfield SEG # 14.70 103/ul Critically high 1.40-6.50 [facility] Comment on above: Performed By: #### C ALONZO #### [facility] [address] [address] [address] Kayley Hatfield SEG % 88.0 % Critically high 43.0-75.0 [facility] Comment on above: Performed By: #### C BCMAN #### [facility] [address] [address] [address] Kayley Hatfield WBC 16.7 103/ul Critically high 4.0-11.0 [facility] Comment on above: Performed By: #### C BCMAN #### [facility] [address] [address] [address] Kayley Hatfield CRPon 03-28-2022 CRP [Mass/Vol] mg/L Normal <=1.0 [facility] Comment on above: Performed By: #### H GBHCT #### [facility] [address] [place] [address] Dr. Kayley Hatfield [facility]10 SARS-CoV-2 (COVID-19) RNA ELBA+probe Ql (Unsp spec) Not detected Normal NOT DETECTED [facility] Comment on above: Result Comment: When diagnostic [...] for this test is supported by the Deposit of Health and Human Service's declaration that [...] By: #### P RBC #### [facility] [address] [place] [address] Dr. Kayley Hatfield ER URINE PROFILEon Bilirubin Ql (U) Negative Normal NEGATIVE [facility] Comment on above: Performed By: #### P RBC #### [facility] [address] [address] [address] Kayley Hatfield Clarity (U) CLEAR Normal CLEAR [facility] Comment on above: Performed By: #### P RBC #### [facility] [address] [place] [address] Dr. Kayley Hatfield Color (U) LT. YELLOW Normal YELLOW [facility] Comment on above: Performed By: #### P RBC #### [facility] [address] [place] [address] Dr. Kayley Hatfield ERUAHBetsey A micrscopic examination will be performed if indicated. Normal [facility] Comment on above: Performed By: #### P RBC #### [facility] [address] [place] [address] Dr. Kayley Hatfield Glucose Ql (U) Negative Normal NEGATIVE [facility] Comment on above: Performed By: #### P RBC #### [facility] [address] [place] [address] Dr. Kayley Hatfield Hemoglobin Ql (U) Negative Normal NEGATIVE [facility] Comment on above: Performed By: #### P RBC #### [facility] [address] [place] [address] Dr. Kayley Hatfield Ketones Ql (U) Negative Normal NEGATIVE [facility] Comment on above: Performed By: #### P RBC #### [facility] [address] [place] [address] Dr. Kayley Hatfield LEUKOCYTES Negative Normal NEGATIVE [facility] Comment on above: Performed By: #### P RBC #### [facility] [address] [place] [address] Dr. Kayley Hatfield Nitrite Ql (U) Negative Normal NEGATIVE [facility] Comment on above: Performed By: #### P RBC #### [facility] [address] [place] [address] Dr. Kayley Hatfield pH (U) 6.0 [pH] Normal 5-9 [facility] Comment on above: Performed By: #### P RBC #### [facility] [address] [place] [address] Dr. Kayley Hatfield SPEC GRAVITY <=1.005 Abnormal 1.005-<=1.025 [facility] Comment on above: Performed By: #### P RBC #### [facility] [address] [address] [address] Kayley Hatfield UA PROTEIN Negative Normal NEGATIVE/ TRACE [facility] Comment on above: Performed By: #### P RBC #### [facility] [address] [place] [address] Dr. Kayley Hatfield UR MICRO IND NOT INDICATED Normal [facility] Comment on above: Performed By: #### P RBC #### [facility] [address] [place] [address] Dr. Kayley Hatfield Urobilinogen Qn (U) 0.2 {Lu'U}/dL Normal 0.2 - 1. 0 [facility] Comment on above: Performed By: #### P RBC #### [facility] [address] [place] [address] Dr. Kayley Hatfield FERRITINon 03-28-2022 Ferritin [Mass/Vol] 61.0 ng/mL Normal 8.0-252.0 [facility] Comment on above: Performed By: #### P RBC #### [facility] [address] [place] [address] Dr. Kayley Hatfield GLYCOHEMOGLOBIN A1Con 2021 ADA RECOMMENDATION SEE BELOW Normal [facility] Comment on above: Result Comment: ADA RECOMMENDED LIMIT 4.0 - 6.0 ADA THERAPEUTIC TARGET < 7.0 ACTION SUGGESTED > 7.0 Performed By: #### P RBC #### [facility] [address] [place] [address] Dr. Kayley Hatfield Glucose [Mass/Vol] 114 mg/dL Normal [facility] Comment on above: Performed By: #### P RBC #### [facility] [address] [place] [address] Dr. Kayley Hatfield HbA1c (Bld) [Mass fraction] 5.6 % Normal 4.5-6.2 [facility] Comment on above: Performed By: #### P RBC #### [facility] [address] [place] [address] Dr. Kayley Hatfield IRONon 03-28-2022 Iron [Mass/Vol] 37.0 ug/dL Critically low 50.0-170.0 [facility] Comment on above: Performed By: #### P RBC #### [facility] [address] [address] [address] Kayley Hatfield LDHon 03-28-2022 LDH 174 U/L Normal 81-234 [facility] Comment on above: Performed By: #### L DH #### [facility] [address] [address] [address] Kayley Hatfield LIPID PROFILEon 03-28-2022 CHOL-HDL RATIO NORM SEE BELOW Normal [facility] Comment on above: Result Comment: 3.3 - 4.4 LOW RISK 4.4 - 7.1 AVERAGE RISK 7.1 - 11.0 MODERATE RISK >11.0 HIGH RISK Performed By: #### P RBC #### [facility] [address] [place] [address] Dr. Kayley Hatfield Cholesterol [Mass/Vol] 193 mg/dL Normal <=200 [facility] Comment on above: Performed By: #### P RBC #### [facility] [address] [address] [address] Kayley Hatfield Cholesterol in HDL [Mass/Vol] 95 mg/dL Critically high 40-60 [facility] Comment on above: Performed By: #### P RBC #### [facility] [address] [place] [address] Dr. Kayley Hatfield Cholesterol in LDL [Mass/Vol] 74.8 mg/dL Normal [facility] Comment on above: Performed By: #### P RBC #### [facility] [address] [address] [address] Kayley Hatfield Cholesterol.total/Cho lesterol in HDL [Mass ratio] 2.0 {ratio} Normal [facility] Comment on above: Performed By: #### P RBC #### [facility] [address] [address] [address] Kayely Hatfield HDL NORMAL > or = 60 mg/dl - LO W CARDIOVASCULAR RISK <40 mg/dl - HIGH CARDIOVASCULAR RISK Normal [facility] Comment on above: Performed By: #### P RBC #### [facility] [address] [address] [address] Kayley Hatfield LDL CALC NORMAL SEE BELOW Normal [facility] Comment on above: Result Comment: <100 mg/dl OPTIMAL 100 - 129 mg/dl NEAR OR ABOVE OPTIMAL 130 - 159 mg/dl BORDERLINE HIGH 160 - 189 mg/dl HIGH >190 mg/dl VERY HIGH Performed By: #### P RBC #### [facility] [address] [address] [address] Kayley Hatfield Triglyceride [Mass/Vol] 116 mg/dL Normal <=150 [facility] Comment on above: Performed By: #### P RBC #### [facility] [address] [place] [address] Dr. Kayley Hatfield VLDL CALC 23.2 mg/dL Normal [facility] Comment on above: Performed By: #### P RBC #### [facility] [address] [place] [address] Dr. Kayley Hatfield LIVER PROFILEon 03-28-2022 Albumin [Mass/Vol] 3.2 g/dL Critically low 3.4-5.0 [facility] Comment on above: Performed By: #### P RBC #### [facility] [address] [place] [address] Dr. Kayley Hatfield Albumin/Globulin [Mass ratio] 1.0 {ratio} Normal [facility] Comment on above: Performed By: #### P RBC #### [facility] [address] [place] [address] Dr. Kayley Hatfield ALP [Catalytic activity/Vol] 56 U/L Normal 46-116 [facility] Comment on above: Performed By: #### P RBC #### [facility] [address] [address] [address] Kayley Hatfield ALT [Catalytic activity/Vol] 32 U/L Normal 14-59 [facility] Comment on above: Performed By: #### P RBC #### [facility] [address] [place] [address] Dr. Kayley Hatfield AST [Catalytic activity/Vol] 18 U/L Normal 15-37 [facility] Comment on above: Performed By: #### P RBC #### [facility] [address] [address] [address] Kayley Hatfield BILI, CONJUGATED 0.1 mg/dL Normal 0.0-0.2 [facility] Comment on above: Performed By: #### P RBC #### [facility] [address] [place] [address] Dr. Kayley Hatfield Bilirubin [Mass/Vol] 0.2 mg/dL Normal 0.2-1.0 [facility] Comment on above: Performed By: #### P RBC #### [facility] [address] [place] [address] Dr. Kayley Hatfield Globulin (S) [Mass/Vol] 3.1 g/dL Normal [facility] Comment on above: Performed By: #### P RBC #### [facility] [address] [place] [address] Dr. Kayley Hatfield Protein [Mass/Vol] 6.3 g/dL Critically low 6.4-8.2 [facility] Comment on above: Performed By: #### P RBC #### [facility] [address] [place] [address] Dr. Kayley Hatfield MAGNESIUMon 03-28-2022 Magnesium [Mass/Vol] 1.8 mg/dL Normal 1.8-2.4 [facility] Comment on above: Performed By: #### H GBHCT #### [facility] [address] [place] [address] Dr. Kayley Hatfield PHOSPHORUSon 03-28-2022 Phosphate [Mass/Vol] 4.4 mg/dL Normal 2.6-4.7 [facility] Comment on above: Performed By: #### O BSCRN #### [facility] [address] [place] [address] Dr. Kayley Hatfield PROF CHEM 8 (BAS METB)on Anion gap [Moles/Vol] 10.1 mmol/L Normal [facility] Comment on above: Performed By: #### P RBC #### [facility] [address] [place] [address] Dr. Kayley Hatfield Calcium [Mass/Vol] 9.1 mg/dL Normal 8.5-10.1 [facility] Comment on above: Performed By: #### P RBC #### [facility] [address] [address] [address] Kayley Hatfield Chloride [Moles/Vol] 101 mmol/L Normal 98-107 [facility] Comment on above: Performed By: #### P RBC #### [facility] [address] [address] [address] Kayley Hatfield CO2 [Moles/Vol] 32.6 mmol/L Critically high 21.0-32.0 [facility] Comment on above: Performed By: #### P RBC #### [facility] [address] [place] [address] Dr. Kayley Hatfield Creatinine [Mass/Vol] 0.90 mg/dL Normal 0.55-1.02 [facility] Comment on above: Performed By: #### P RBC #### [facility] [address] [place] [address] Dr. Kayley Hatfield EGFR-AF TUVALUAN >60 Normal >=60 [facility] Comment on above: Performed By: #### P RBC #### [facility] [address] [place] [address] Dr. Kayley Hatfield EGFR-NON AF TUVALUAN >60 Normal >=60 [facility] Comment on above: Performed By: #### P RBC #### [facility] [address] [place] [address] Dr. Kayley Hatfield Glucose [Mass/Vol] 161 mg/dL Critically high 74-106 [facility] Comment on above: Performed By: #### P RBC #### [facility] [address] [address] [address] Kayley Hatfield Potassium [Moles/Vol] 4.7 mmol/L Normal 3.5-5.1 [facility] Comment on above: Performed By: #### P RBC #### [facility] [address] [place] [address] Dr. Kayley Hatfield Sodium [Moles/Vol] 139 mmol/L Normal 136-145 [facility] Comment on above: Performed By: #### P RBC #### [facility] [address] [place] [address] Dr. Kayley Hatfield Urea nitrogen [Mass/Vol] 15.0 mg/dL Normal 7.0-18.0 [facility] Comment on above: Performed By: #### P RBC #### [facility] [address] [place] [address] Dr. Kayley Hatfield Urea nitrogen/Creatinine [Mass ratio] 16.7 mg/mg Normal [facility] Comment on above: Performed By: #### P RBC #### [facility] [address] [place] [address] Dr. Kayley Hatfield RETICULOCYTEon 03-28-2022 RETIC 4.65 % Critically high 0.60-3.10 [facility] Comment on above: Performed By: #### L DH #### [facility] [address] [place] [address] Dr. Kayley Hatfield SED RATE WESTERGRENon 2021 SED RATE 12 mm/hr Normal <=30 [facility] Comment on above: Performed By: #### P RTELEC #### [facility] [address] [place] [address] Dr. Kayley Hatfield TSHon 03-28-2022 TSH 0.922 uIU/mL Normal 0.358-3.740 [facility] Comment on above: Performed By: #### P RBC #### [facility] [address] [place] [address] Dr. Kayley Hatfield TYPE AND SCREENon 03-28-2022 TYPE AND SCREEN Negative Normal [facility] Comment on above: Performed By: #### C VDTBH #### [facility] [address] [place] [address] Dr. Kayley Hatfield VIT B12 AND FOLATEon 022 Cobalamin (Vitamin B12) [Mass/Vol] 490.0 pg/mL Normal 193.0-986.0 [facility] Comment on above: Performed By: #### L DH #### [facility] [address] [place] [address] Dr. Kayley Hatfield FOLATE 14.00 ng/mL Normal 8.60-58.90 [facility] Comment on above: Performed By: #### L DH #### [facility] [address] [address] [address] Kayley Hatfield VITAMIN D 25 OHon 03-28-2022 VIT D 25-OH 41.5 ng/mL Normal [facility] Comment on above: Performed By: #### O BSCRN #### [facility] [address] [address] [address] Kayley Hatfield VIT D RANGES SEE BELOW Normal [facility] Comment on above: Result Comment: <20 ng/mL Vit D deficient 20 - <30 ng/mL Vit D insufficient 30 - 100 ng/mL Vit D sufficient >100 ng/mL Potential Toxicity Performed By: #### O BSCRN #### [facility] [address] [address] [address] Kayley Hatfield XR CHEST 1 Von [...] Date: 2022-03-28 21:37 Normal [facility] BASIC METABOLIC PANELon Calcium [Mass/Vol] 8.9 mg/dL Normal 8.6-10.3 [facility] [place] Comment on above: Order Comment: No: D o not add to previous draw Performed By: #### 3 5200, 85948, 53725, 40952 #### [facility] [address] [place] [address], [facility] Chloride [Moles/Vol] 97 mmol/L Low 98-107 [facility] [place] Comment on above: Order Comment: No: D o not add to previous draw Performed By: #### 3 5200, 01524, 85841, 90475 #### [facility] [address] [place] [address], [facility] CO2 [Moles/Vol] 35 mmol/L High 21-31 [facility] [place] Comment on above: Order Comment: No: D o not add to previous draw Performed By: #### 3 5200, 00783, 85287, 57070 #### [facility] [address] [place] [address], [facility] Creatinine [Mass/Vol] 0.65 mg/dL Normal 0.60-1.20 [facility] [place] Comment on above: Order Comment: No: D o not add to previous draw Performed By: #### 3 5200, 62270, 19310, 04741 #### [facility] [address] [place] [address], [facility] GFR/1.73 sq M.predicted among non-blacks MDRD (S/P/Bld) [Vol rate/Area] mL/min/{1.73_m2} Normal >60 [facility] [place] Comment on above: Order Comment: No: D o not add to previous draw Result Comment: [facility] [place]'s estimated glomerular filtration rate (eGFR) will no [...] of individuals. Performed By: #### 3 0, 99586, 62077, 99313 #### [facility] [address] [place] [id number], [place] Glucose [Mass/Vol] 161 mg/dL High 70-100 [facility] [place] Comment on above: Order Comment: No: D o not add to previous draw Performed By: #### 3 0, 39061, 95078, 32293 #### [facility] [address] [place] [address], [place] Potassium [Moles/Vol] 3.9 mmol/L Normal 3.5-5.1 [facility] [place] Comment on above: Order Comment: No: D o not add to previous draw Performed By: #### 3 0, , 01967, 05034 #### [facility] [address] [place] [id number], [facility] Sodium [Moles/Vol] 136 mmol/L Normal 136-145 [facility] [place] Comment on above: Order Comment: No: D o not add to previous draw Performed By: #### 3 0, 52614, 04503, 00371 #### [facility] [address] [place] [id number], [facility] Urea nitrogen [Mass/Vol] 16 mg/dL Normal 7-25 [facility] [place] Comment on above: Order Comment: No: D o not add to previous draw Performed By: #### 3 0, 79865, 20421, 98466 #### [facility] [address] [place] [id number], [facility] CBC COMPLETE BLOOD COUNTon 0 03-15-2022 Hematocrit (Bld) [Volume fraction] 28.2 % Low 36.0-45.0 [facility] [place] Comment on above: Order Comment: No: D o not add to previous draw Performed By: #### 3 0 #### [facility] [address] [place] [address], [facility] Hemoglobin (Bld) [Mass/Vol] 8.3 g/dL Low 12.0-15.0 [facility] [place] Comment on above: Order Comment: No: D o not add to previous draw Performed By: #### 3 5200 #### [facility] [address] [place] [id number], [facility] MCH (RBC) [Entitic mass] 22.9 pg Low 27.0-33.0 [facility] [place] Comment on above: Order Comment: No: D o not add to previous draw Performed By: #### 3 5200 #### [facility] [address] [place] [address], [facility] MCHC (RBC) [Mass/Vol] 29.4 g/dL Low 32.0-35.0 [facility] [place] Comment on above: Order Comment: No: D o not add to previous draw Performed By: #### 3 5200 #### [facility] [address] [place] [address], [facility] MCV (RBC) [Entitic vol] 77.9 fL Low 82.0-98.0 [facility] [place] Comment on above: Order Comment: No: D o not add to previous draw Performed By: #### 3 5200 #### [facility] [address] [place] [address], [facility] Nucleated RBC/100 WBC (Bld) [Ratio] 0 % Normal 0-0 [facility] [place] Comment on above: Order Comment: No: D o not add to previous draw Performed By: #### 3 5200 #### [facility] [address] [place] [address], [facility] PLAT CNT 221 10*3/uL Normal 150-400 [facility] [place] Comment on above: Order Comment: No: D o not add to previous draw Performed By: #### 3 5200 #### [facility] [address] [place] [address], [place] RBC (Bld) [#/Vol] 3.62 10*6/uL Low 3.80-5.00 [facility] [place] Comment on above: Order Comment: No: D o not add to previous draw Performed By: #### 3 5200 #### [facility] [address] [place] [address], [place] RDW ---- Normal 11.5-15.0 [facility] [place] Comment on above: Order Comment: No: D o not add to previous draw Result Comment: Prev ious RDW was unable to be calculated Performed By: #### 3 5200 #### [facility] [address] [place] [address], [place] WBC (Bld) [#/Vol] 11.88 10*3/uL High 4.00-10.60 [facility] [place] Comment on above: Order Comment: No: D o not add to previous draw Performed By: #### 3 5200 #### [facility] [address] [place] [address], [place] POC GLUCOSE LABon 03-15-2022 Glucose [Mass/Vol] 109 mg/dL High 70-100 [facility] [place] Comment on above: Performed By: #### 8 5499 ####[facility] [place] [address], [place] POC GLUCOSE LABon 03-14-2022 Glucose [Mass/Vol] 278 mg/dL High 70-100 [facility] [place] Comment on above: Performed By: #### 8 5499 ####[facility] [place] [address], [place] Glucose [Mass/Vol] 195 mg/dL High 70-100 [facility] [place] Comment on above: Performed By: #### 8 5499 ####[facility] [place] [address], [place] Glucose [Mass/Vol] 114 mg/dL High 70-100 [facility] [place] Comment on above: Performed By: #### 8 5499 ####[facility] [place] [address], [facility] Glucose [Mass/Vol] 113 mg/dL High 70-100 [facility] [place] Comment on above: Performed By: #### 3 5200 #### [facility] [address] [place], [place] [id number] [place] [address] PORTABLE CHEST 1 VIEWon PORTABLE CHEST 1 VIEW [facility] Department of Radiology [address] [place] [id number] Patient Name: LISE CANALES : 1955 Sex: F Age: Race: White Pt. Location: [address] [place] [address] Patient Status: I Ordered Date: 03/14/2022 2:35:00 [...] chest. Electronically signed: Tyshawn Tapia. Transcribed by: [email or web address], User Resident: Electronically Signed by: TYSHAWN TAPIA @ 03/14/2022 03:31 PM Normal [facility] [place] Comment on above: Order Comment: Check Chest Tube Position, S/P Chest tube DC'd PORTABLE CHEST 1 VIEW [facility] Department of Radiology [address] [place] [id number] Patient Name: LISE CANALES : 1955 Sex: F Age: Race: White Pt. Location: [address] [place] [address] Patient Status: I Ordered Date: 03/14/2022 6:50:00 [...] pneumothorax. Electronically signed: Tyshawn Tapia. Transcribed by: [email or web address], User Resident: Electronically Signed by: TYSHAWN TAPIA @ 03/14/2022 02:56 PM Normal [facility] [place] Comment on above: Order Comment: Check Chest Tube Position, S/P Chest tube DC'd POC GLUCOSE LABon 03-13-2022 Glucose [Mass/Vol] 282 mg/dL High 70-100 [facility] Comment on above: Performed By: #### 8 5499 ####[facility] [place] [address], [facility] Glucose [Mass/Vol] 163 mg/dL High 70-100 [facility] Comment on above: Performed By: #### 8 5499 ####[facility] [place] [address], [facility] Glucose [Mass/Vol] 149 mg/dL High 70-100 [facility] Comment on above: Performed By: #### 3 5200 #### [facility] [address] [place] [address], [facility] Glucose [Mass/Vol] 149 mg/dL High 70-100 [facility] Comment on above: Performed By: #### 8 5499 ####[facility] PORTABLE CHEST 1 VIEWon PORTABLE CHEST 1 VIEW [facility] Department of Radiology [address] [place] [phone] Patient Name: LISE CANALES : 1955 Sex: F Age: Race: White Pt. Location: [address] [place] [address] Patient Status: I Ordered Date: 03/13/2022 4:15:00 [...] morning Electronically signed: Avinash Mckay. Transcribed by: [email or web address], User Resident: Electronically Signed by: AVINASH MCKAY @ 03/13/2022 06:20 PM Normal [facility] [place] Comment on above: Order Comment: Check Chest Tube Position, S/P Chest tube DC'd PORTABLE CHEST 1 VIEW [facility] Department of Radiology [address] [place] [phone] Patient Name: LISE CANALES : 1955 Sex: F Age: Race: White Pt. Location: [address] [place] [address] Patient Status: I Ordered Date: 03/13/2022 6:50:00 [...] congestion. Electronically signed: Tyshawn Tapia. Transcribed by: [email or web address], User Resident: Electronically Signed by: TYSHAWN TAPIA @ 03/13/2022 08:34 AM Normal [facility] [place] Comment on above: Order Comment: Evalu ate for Aspiration POTASSIUM BLOODon 03-13-2022 Potassium [Moles/Vol] 4.5 mmol/L Normal 3.5-5.1 [facility] [place] Comment on above: Order Comment: No: D o not add to previous draw Performed By: #### 3 5200 #### [facility] [address] [place] [address], [facility] BASIC METABOLIC PANELon 09-0 Calcium [Mass/Vol] 9.4 mg/dL Normal 8.6-10.3 [facility] [place] Comment on above: Order Comment: Check Chest Tube Position, S/P Chest tube DC'd Performed By: #### 0 0071 ####[facility] [facility] [place] [address], [facility] Chloride [Moles/Vol] 98 mmol/L Normal 98-107 [facility] [place] Comment on above: Order Comment: Check Chest Tube Position, S/P Chest tube DC'd Performed By: #### 0 0071 ####[facility] [place] [address], [facility] CO2 [Moles/Vol] 34 mmol/L High 21-31 [facility] [place] Comment on above: Order Comment: Check Chest Tube Position, S/P Chest tube DC'd Performed By: #### 0 0071 ####[facility] [place] [address], [facility] Creatinine [Mass/Vol] 0.56 mg/dL Low 0.60-1.20 [facility] [place] Comment on above: Order Comment: Check Chest Tube Position, S/P Chest tube DC'd Performed By: #### 0 0071 ####[facility] GFR/1.73 sq M.predicted among non-blacks MDRD (S/P/Bld) [Vol rate/Area] mL/min/{1.73_m2} Normal >60 [facility] [place] Comment on above: Order Comment: Check Chest Tube Position, S/P Chest tube DC'd Result Comment: [facility] [place]'s estimated glomerular filtration rate (eGFR) will no [...] of individuals. Performed By: #### 0 0071 ####[facility] [facility] [place] [address], [facility] Glucose [Mass/Vol] 114 mg/dL High 70-100 [facility] [place] Comment on above: Order Comment: Check Chest Tube Position, S/P Chest tube DC'd Performed By: #### 0 0071 ####[facility] [place] [address], [facility] Potassium [Moles/Vol] 3.3 mmol/L Low 3.5-5.1 [facility] [place] Comment on above: Order Comment: Check Chest Tube Position, S/P Chest tube DC'd Performed By: #### 0 0071 ####[facility] Sodium [Moles/Vol] 140 mmol/L Normal 136-145 [facility] [place] Comment on above: Order Comment: Check Chest Tube Position, S/P Chest tube DC'd Performed By: #### 0 0071 ####[facility] [place] [address], [facility] Urea nitrogen [Mass/Vol] 9 mg/dL Normal 7-25 [facility] [place] Comment on above: Order Comment: Check Chest Tube Position, S/P Chest tube DC'd Performed By: #### 0 0071 ####[facility] [place] [address], [facility] CBC COMPLETE BLOOD COUNTon 0 03-12-2022 Hematocrit (Bld) [Volume fraction] 35.2 % Low 36.0-45.0 [facility] [place] Comment on above: Order Comment: No: D o not add to previous draw Performed By: #### 3 5200 #### [facility] [address] [facility] [place] [address], [facility] Hemoglobin (Bld) [Mass/Vol] 10.1 g/dL Low 12.0-15.0 [facility] [place] Comment on above: Order Comment: No: D o not add to previous draw Performed By: #### 3 5200 #### [facility] [address] [place] [address], [facility] IMM PLATELET FRAC 3.6 % Normal 0.8-6.3 [facility] [place] Comment on above: Order Comment: No: D o not add to previous draw Performed By: #### 3 5200 #### [facility] [address] [place] [address], [facility] MCH (RBC) [Entitic mass] 21.9 pg Low 27.0-33.0 [facility] [place] Comment on above: Order Comment: No: D o not add to previous draw Performed By: #### 3 5200 #### [facility] [address] [place] [address], [facility] MCHC (RBC) [Mass/Vol] 28.7 g/dL Low 32.0-35.0 [facility] [place] Comment on above: Order Comment: No: D o not add to previous draw Performed By: #### 3 5200 #### [facility] [address] [place] [address], [facility] MCV (RBC) [Entitic vol] 76.2 fL Low 82.0-98.0 [facility] [place] Comment on above: Order Comment: No: D o not add to previous draw Performed By: #### 3 5200 #### [facility] [address] [place] [id number], [facility] Nucleated RBC/100 WBC (Bld) [Ratio] 0 % Normal 0-0 [facility] [place] Comment on above: Order Comment: No: D o not add to previous draw Performed By: #### 3 5200 #### [facility] [address] [place] [id number], [facility] PLAT CNT 129 10*3/uL Low 150-400 [facility] [place] Comment on above: Order Comment: No: D o not add to previous draw Performed By: #### 3 5200 #### [facility] [address] [place] [address], [place] RBC (Bld) [#/Vol] 4.62 10*6/uL Normal 3.80-5.00 [facility] [place] Comment on above: Order Comment: No: D o not add to previous draw Performed By: #### 3 5200 #### [facility] [address] [place] [address], [place] RDW Unable to Calculate Normal 11.5-15.0 [facility] [place] Comment on above: Order Comment: No: D o not add to previous draw Performed By: #### 3 5200 #### [facility] [address] [place] [address], [place] WBC (Bld) [#/Vol] 11.72 10*3/uL High 4.00-10.60 [facility] [place] Comment on above: Order Comment: No: D o not add to previous draw Performed By: #### 3 5200 #### [facility] [address] [place] [address], [facility] POC GLUCOSE LABon 03-12-2022 Glucose [Mass/Vol] 252 mg/dL High 70-100 [facility] [place] Comment on above: Performed By: #### 3 5200 #### [facility] [address] [place] [address], [place] POC GLUCOSE LABon 03-11-2022 Glucose [Mass/Vol] 121 mg/dL High 70-100 [facility] [place] Comment on above: Performed By: #### 8 5499 ####[facility] [place] [address], [place] Glucose [Mass/Vol] 122 mg/dL High 70-100 [facility] [place] Comment on above: Performed By: #### 3 5200 #### [facility] [address] [facility] [place] [address], [facility] Glucose [Mass/Vol] 86 mg/dL Normal 70-100 [facility] [place] Comment on above: Performed By: #### 3 5200 #### [address] [address], [facility] PORTABLE CHEST 1 VIEWon PORTABLE CHEST 1 VIEW [facility] Department of Radiology [address] [place] [phone] Patient Name: LISE CANALES : 1955 Sex: F Age: Race: White Pt. Location: [id number] Patient Status: I Ordered Date: 03/11/2022 3:25:00 [...] abnormalities Electronically signed: Avinash Mckay. Transcribed by: [email or web address], User Resident: Electronically Signed by: AVINASH MCKAY @ 03/11/2022 06:30 PM Normal [facility] [place] Comment on above: Order Comment: Evalu ate for Atelectasis CBC COMPLETE BLOOD COUNTon 0 03-10-2022 Erythrocyte distribution width (RBC) [Ratio] 29.9 % High 11.5-15.0 [facility] [place] Comment on above: Order Comment: No: D o not add to previous draw Performed By: #### 3 5200 #### [facility] [address] [place] [address], [facility] Hematocrit (Bld) [Volume fraction] 32.2 % Low 36.0-45.0 [facility] [place] Comment on above: Order Comment: No: D o not add to previous draw Performed By: #### 3 5200 #### [facility] [address] [place] [address], [facility] Hemoglobin (Bld) [Mass/Vol] 9.2 g/dL Low 12.0-15.0 [facility] [place] Comment on above: Order Comment: No: D o not add to previous draw Performed By: #### 3 5200 #### [facility] [address] [place] [address], [facility] IMM PLATELET FRAC 3.4 % Normal 0.8-6.3 [facility] [place] Comment on above: Order Comment: No: D o not add to previous draw Performed By: #### 3 5200 #### [facility] [address] [place] [address], [facility] MCH (RBC) [Entitic mass] 21.9 pg Low 27.0-33.0 [facility] [place] Comment on above: Order Comment: No: D o not add to previous draw Performed By: #### 3 5200 #### [facility] [address] MCHC (RBC) [Mass/Vol] 28.6 g/dL Low 32.0-35.0 [facility] [place] Comment on above: Order Comment: No: D o not add to previous draw Performed By: #### 3 5200 #### [facility] [address] [place] [id number], [facility] MCV (RBC) [Entitic vol] 76.7 fL Low 82.0-98.0 [facility] [place] Comment on above: Order Comment: No: D o not add to previous draw Performed By: #### 3 5200 #### [facility] [address] [facility] [place] [address], [facility] Nucleated RBC/100 WBC (Bld) [Ratio] 0 % Normal 0-0 [facility] [place] Comment on above: Order Comment: No: D o not add to previous draw Performed By: #### 3 5200 #### [facility] [address] [place] [id number], [facility] PLAT CNT 124 10*3/uL Low 150-400 [facility] [place] Comment on above: Order Comment: No: D o not add to previous draw Performed By: #### 3 5200 #### [facility] [address] [place] [id number], [facility] RBC (Bld) [#/Vol] 4.20 10*6/uL Normal 3.80-5.00 [facility] [place] Comment on above: Order Comment: No: D o not add to previous draw Performed By: #### 3 5200 #### [facility] [address] [place] [address], [facility] WBC (Bld) [#/Vol] 12.68 10*3/uL High 4.00-10.60 [facility] [place] Comment on above: Order Comment: No: D o not add to previous draw Performed By: #### 3 5200 #### [facility] [address] [place] [id number], [place] HEMOGLOBIN A1Con 03-10-2022 Glucose [Moles/Vol] 143 mmol/L Normal [facility] [place] Comment on above: Order Comment: No: D o not add to previous draw Result Comment: Resu lt changed by BSHORT on 03/10/2022 13:15. The previous value was 140. Performed By: #### 3 1791 #### [facility] [address] [place] [address], [facility] HbA1c (Bld) [Mass fraction] 6.6 % High 4.0-6.0 [facility] [place] Comment on above: Order Comment: No: D o not add to previous draw Result Comment: Resu lt changed by BSHORT on 03/10/2022 13:15. The previous value was 6.5. Performed By: #### 3 1791 #### [facility] [address] [place] [address], [facility] POC GLUCOSE LABon 03-10-2022 Glucose [Mass/Vol] 107 mg/dL High 70-100 [facility] [place] Comment on above: Performed By: #### 3 5200 #### [facility] [address] [place] [address], [place] Glucose [Mass/Vol] 100 mg/dL Normal 70-100 [facility] [place] Comment on above: Performed By: #### 8 5499 ####[facility] [place] [address], [facility] Glucose [Mass/Vol] 147 mg/dL High 70-100 [facility] [place] Comment on above: Performed By: #### 8 5499 ####[facility] [place] [address], [place] Glucose [Mass/Vol] 65 mg/dL Low 70-100 [facility] [place] Comment on above: Performed By: #### 8 5499 ####[facility] [place] [address], [facility] PORTABLE CHEST 1 VIEWon PORTABLE CHEST 1 VIEW [facility] Department of Radiology [address] [place] [address] Patient Name: LISE CANALES : 1955 Sex: F Age: Race: White Pt. Location: [id number] Patient Status: I Ordered Date: 03/10/2022 7:40:00 [...] recommended. Electronically signed: Derek Ingram. Transcribed by: [id number], User Resident: Electronically Signed by: DEREK INGRAM @ 03/10/2022 12:10 PM Normal [facility] [place] Comment on above: Order Comment: No: D o not add to previous draw *URINE CULTUREon 03-09-2022 *URINE CULTURE Clinical Report: (D) Specimen/Source: URINE/CLEAN VOID URINE Collected: 03/09/2022 01:58 Status: Final Last Updated: 03/10/2022 08:51 ISO (Final) 50,000 - 100,000 Cfu/mL Mixed Lexi: Multiple Organisms present suggest contamination. Suggest Repeat Specimen Normal [facility] [place] Comment on above: Performed By: #### 3 0339 ####[facility]3000 [facility].[address] CBC W/DIFFon 03-09-2022 ABS IMM GRANS 0.1 10*3/uL Normal 0.0-0.2 [facility] [place] Comment on above: Order Comment: Check Chest Tube Position, S/P Chest tube DC'd Performed By: #### 5 0103 ####[facility] ABS NEUTROPHILS 13.3 10*3/uL High 1.6-7.6 [facility] [place] Comment on above: Order Comment: Check Chest Tube Position, S/P Chest tube DC'd Performed By: #### 5 0103 ####[facility] ANISO Moderate Normal [facility] [place] Comment on above: Order Comment: Check Chest Tube Position, S/P Chest tube DC'd Performed By: #### 5 0103 ####[facility] Basophils (Bld) [#/Vol] 0.0 10*3/uL Normal 0.0-0.2 [facility] [place] Comment on above: Order Comment: Check Chest Tube Position, S/P Chest tube DC'd Performed By: #### 5 0103 ####[facility] [place] [address], [facility] Basophils/100 WBC (Bld) 0.3 % Normal 0.0-1.0 [facility] [place] Comment on above: Order Comment: Check Chest Tube Position, S/P Chest tube DC'd Performed By: #### 5 0103 ####[address] Eosinophils (Bld) [#/Vol] 0.1 10*3/uL Normal 0.0-0.5 [facility] [place] Comment on above: Order Comment: Check Chest Tube Position, S/P Chest tube DC'd Performed By: #### 5 0103 ####[facility] Eosinophils/100 WBC (Bld) 0.5 % Normal 0.0-6.0 [facility] [place] Comment on above: Order Comment: Check Chest Tube Position, S/P Chest tube DC'd Performed By: #### 5 3 ####[address] Erythrocyte distribution width (RBC) [Ratio] 28.7 % High 11.5-15.0 [facility] [place] Comment on above: Order Comment: Check Chest Tube Position, S/P Chest tube DC'd Performed By: #### 5 0103 ####[address] Hematocrit (Bld) [Volume fraction] 29.1 % Low 36.0-45.0 [facility] [place] Comment on above: Order Comment: Check Chest Tube Position, S/P Chest tube DC'd Performed By: #### 5 0103 ####[facility] Hemoglobin (Bld) [Mass/Vol] 8.3 g/dL Low 12.0-15.0 [facility] [place] Comment on above: Order Comment: Check Chest Tube Position, S/P Chest tube DC'd Performed By: #### 5 0103 ####[facility] HYPO Slight Normal [facility] [place] Comment on above: Order Comment: Check Chest Tube Position, S/P Chest tube DC'd Performed By: #### 5 0103 ####[facility] IMMATURE GRANS 0.5 % Normal 0.0-1.0 [facility] [place] Comment on above: Order Comment: Check Chest Tube Position, S/P Chest tube DC'd Performed By: #### 5 0103 ####[facility] Lymphocytes (Bld) [#/Vol] 0.8 10*3/uL Low 1.2-4.0 [facility] [place] Comment on above: Order Comment: Check Chest Tube Position, S/P Chest tube DC'd Performed By: #### 5 0103 ####[facility] Lymphocytes/100 WBC (Bld) 5.5 % Low 20.0-45.0 [facility] [place] Comment on above: Order Comment: Check Chest Tube Position, S/P Chest tube DC'd Performed By: #### 5 0103 ####[facility] MCH (RBC) [Entitic mass] 21.7 pg Low 27.0-33.0 [facility] [place] Comment on above: Order Comment: Check Chest Tube Position, S/P Chest tube DC'd Performed By: #### 5 0103 ####[facility] MCHC (RBC) [Mass/Vol] 28.5 g/dL Low 32.0-35.0 [facility] [place] Comment on above: Order Comment: Check Chest Tube Position, S/P Chest tube DC'd Performed By: #### 5 0103 ####[facility] MCV (RBC) [Entitic vol] 76.2 fL Low 82.0-98.0 [facility] [place] Comment on above: Order Comment: Check Chest Tube Position, S/P Chest tube DC'd Performed By: #### 5 3 ####[facility] Monocytes (Bld) [#/Vol] 1.1 10*3/uL High 0.1-1.0 [facility] [place] Comment on above: Order Comment: Check Chest Tube Position, S/P Chest tube DC'd Performed By: #### 5 3 ####[facility] MONOS 7.3 % Normal 5.0-12.0 [facility] [place] Comment on above: Order Comment: Check Chest Tube Position, S/P Chest tube DC'd Performed By: #### 5 3 ####[facility] Neutrophils/100 WBC (Bld) 85.9 % High 40.0-72.0 [facility] [place] Comment on above: Order Comment: Check Chest Tube Position, S/P Chest tube DC'd Performed By: #### 3 ####[facility] Nucleated RBC/100 WBC (Bld) [Ratio] 0 % Normal 0-0 [facility] [place] Comment on above: Order Comment: Check Chest Tube Position, S/P Chest tube DC'd Performed By: #### 5 0103 ####[facility] [facility] PLAT CNT 149 10*3/uL Low 150-400 [facility] [place] Comment on above: Order Comment: Check Chest Tube Position, S/P Chest tube DC'd Performed By: #### 5 0103 ####[facility] POIK Slight Normal [facility] [place] Comment on above: Order Comment: Check Chest Tube Position, S/P Chest tube DC'd Performed By: #### 5 0103 ####[facility]3000 [facility].[address] POLY Slight Normal [facility] [place] Comment on above: Order Comment: Check Chest Tube Position, S/P Chest tube DC'd Performed By: #### 5 0103 ####[facility] [facility] RBC (Bld) [#/Vol] 3.82 10*6/uL Normal 3.80-5.00 [facility] [place] Comment on above: Order Comment: Check Chest Tube Position, S/P Chest tube DC'd Performed By: #### 5 0103 ####[facility]3000 [facility].[address] WBC (Bld) [#/Vol] 15.41 10*3/uL High 4.00-10.60 [facility] [place] Comment on above: Order Comment: Check Chest Tube Position, S/P Chest tube DC'd Performed By: #### 5 0103 ####[facility] COMP METABOLIC PANELon 03-09 Albumin [Mass/Vol] 3.8 g/dL Normal 3.5-5.7 [facility] [place] Comment on above: Order Comment: No: D o not add to previous draw Performed By: #### 3 5200, 41298, 48070, 23045 #### [facility] [address] [place] [address], [place] ALKALINE PHOSPH 52 IU/L Normal 34-104 [facility] [place] Comment on above: Order Comment: No: D o not add to previous draw Performed By: #### 3 5200, 80242, 81261, 78000 #### [facility] [address] [place] [address], [place] ALT [Catalytic activity/Vol] 13 U/L Normal 7-52 [facility] [place] Comment on above: Order Comment: No: D o not add to previous draw Performed By: #### 3 5200, 97712, 72971, 65465 #### [facility] [address] [place] [address], [place] AST [Catalytic activity/Vol] 14 U/L Normal 13-39 [facility] [place] Comment on above: Order Comment: No: D o not add to previous draw Performed By: #### 3 5200, 16741, 57309, 49800 #### [facility] [address] [place] [address], [place] Bilirubin [Mass/Vol] 0.4 mg/dL Normal 0.3-1.0 [facility] [place] Comment on above: Order Comment: No: D o not add to previous draw Performed By: #### 3 5200, 27395, 01879, 88306 #### [facility] [address] [place] [address], [place] Calcium [Mass/Vol] 9.2 mg/dL Normal 8.6-10.3 [facility] [place] Comment on above: Order Comment: No: D o not add to previous draw Performed By: #### 3 5200, 76459, 06385, 21979 #### [facility] [address] [place] [address], [place] Chloride [Moles/Vol] 99 mmol/L Normal 98-107 [facility] [place] Comment on above: Order Comment: No: D o not add to previous draw Performed By: #### 3 5200, 36446, 65421, 61064 #### [facility] [address] [place] [address], [facility] CO2 [Moles/Vol] 33 mmol/L High 21-31 [facility] [place] Comment on above: Order Comment: No: D o not add to previous draw Performed By: #### 3 5200, 19510, 80118, 33641 #### [facility] [address] [place] [address], [facility] Creatinine [Mass/Vol] 0.79 mg/dL Normal 0.55-1.02 [facility] [place] Comment on above: Order Comment: No: D o not add to previous draw Performed By: #### 3 5200, 90219, 76279, 52438 #### [facility] [address] [place] [address], [facility] Performed By: #### B LDCX1 #### [facility] [address] [place] [address] Dr. Kayley Hatfield GFR/1.73 sq M.predicted among non-blacks MDRD (S/P/Bld) [Vol rate/Area] mL/min/{1.73_m2} Normal >60 [facility] [place] Comment on above: Order Comment: No: D o not add to previous draw Result Comment: [facility] [place]'s estimated glomerular filtration rate (eGFR) will no [...] of individuals. Performed By: #### 3 5200, 77006, 37453, 56184 #### [facility] [address] [place] [address], [place] Glucose [Mass/Vol] 125 mg/dL High 70-100 [facility] [place] Comment on above: Order Comment: No: D o not add to previous draw Performed By: #### 3 5200, 21455, 94273, 37507 #### [facility] [address] [place] [address], [place] Potassium [Moles/Vol] 4.7 mmol/L Normal 3.5-5.1 [facility] [place] Comment on above: Order Comment: No: D o not add to previous draw Performed By: #### 3 5200, 45126, 73500, 51612 #### [facility] [address] [place] [address], [place] Protein [Mass/Vol] 5.9 g/dL Low 6.0-8.3 [facility] [place] Comment on above: Order Comment: No: D o not add to previous draw Performed By: #### 3 0, 27805, 70623, 44860 #### [facility] [address] [place] [address], [place] Sodium [Moles/Vol] 136 mmol/L Normal 136-145 [facility] [place] Comment on above: Order Comment: No: D o not add to previous draw Performed By: #### 3 0, 60690, 70200, 72461 #### [facility] [address] [place] [address], [place] Urea nitrogen [Mass/Vol] 12 mg/dL Normal 7-25 [facility] [place] Comment on above: Order Comment: No: D o not add to previous draw Performed By: #### 3 5200, 64869, 47488, 58450 #### [facility] [address] [place] [address], [place] LIPID PROFILEon 03-09-2022 Cholesterol [Mass/Vol] 160 mg/dL Normal 120-200 [facility] [place] Comment on above: Order Comment: No: D o not add to previous draw Result Comment: CHOL ESTEROL REFERENCE RANGE: 20 YEARS AND OLDER CARDIOVASCULAR RISK Less than 200 mg/dl Low Risk 200 to 239 mg/dl Borderline Risk 240 mg/dl and greater High Risk Performed By: #### 3 5200, 78058, 61011, 26648 #### [facility] [address] [place] [address], [place] Cholesterol in HDL [Mass/Vol] 76 mg/dL Normal 23-92 [facility] [place] Comment on above: Order Comment: No: D o not add to previous draw Result Comment: Slig ht variation in normal range could be due to gender and/or age. HDL CHOLESTEROL REFERENCE RANGE: 20 years and older Cardiovascular Risk > or =60 mg/dL Desirable 40 TO 59 mg/dL Low Risk <40 mg/dL High Risk Performed By: #### 3 5200, 35180, 62728, 74368 #### [facility] [address] [place] [address], [place] Cholesterol in LDL [Mass/Vol] 48 mg/dL Normal 0-130 [facility] [place] Comment on above: Order Comment: No: D o not add to previous draw Result Comment: LDL IS A CALCULATION LDL IS ONLY VALID IF THE TRIG IS LESS THAN 400. Performed By: #### 3 5200, 84443, 26802, 67705 #### [facility] [address] [place] [address], [place] Cholesterol.total/Cho lesterol in HDL [Mass ratio] 2.1 {ratio} Normal .0-4.5 [facility] [place] Comment on above: Order Comment: No: D o not add to previous draw Performed By: #### 3 5200, 39799, 78550, 65991 #### [facility] [address] [place] [address], [place] NON-HDL CHOLESTEROL 84 mg/dL Normal [facility] [place] Comment on above: Order Comment: No: D o not add to previous draw Performed By: #### 3 5200, 49232, 37109, 16502 #### [facility] [address] [facility]. [address] Triglyceride [Mass/Vol] 179 mg/dL High 40-149 [facility] [place] Comment on above: Order Comment: No: D o not add to previous draw Result Comment: TRIG LYCERIDE REFERENCE RANGE: 20 YEARS AND OLDER CARDIOVASCULAR RISK LESS THAN 150 mg/dl LOW RISK 150 TO 199 mg/dl BORDERLINE RISK 200 mg/dl AND GREATER HIGH RISK Performed By: #### 3 5200, 85120, 65933, 95613 #### [facility] [address] VLDL CHOL 36 mg/dL Normal 0-40 [facility] [place] Comment on above: Order Comment: No: D o not add to previous draw Performed By: #### 3 5200, 70150, 93501, 34300 #### [facility] [address] [facility] [address] POC GLUCOSE LABon 03-09-2022 Glucose [Mass/Vol] 105 mg/dL High 70-100 [facility] [place] Comment on above: Performed By: #### 8 5499 ####[facility]3000 [facility].[address] POC SARS COV2 ANTIGEN NEGATI VEon 03-09-2022 POC SARS COV2 ANTIGEN NEG Negative Normal NEGATIVE [facility] [place] Comment on above: Result Comment: Nega tive [...] antigen from SARS-CoV-2 in direct nasopharyngeal swab (ULTRASOUND MANAGER) specimens from individuals who are suspected of [...] of Accreditation. Performed By: #### 3 2044 ####[place] [id number] [address] PORTABLE CHEST 1 VIEWon PORTABLE CHEST 1 VIEW [facility] Department of Radiology [address] [place] [address] Patient Name: LISE CANALES : 1955 Sex: F Age: Race: White Pt. Location: [address] [place] [address] Patient Status: I Ordered Date: 03/09/2022 8:55:00 [...] COPD. Electronically signed: Derek Ingram. Transcribed by: [email or web address], User Resident: Electronically Signed by: DEREK INGRAM @ 03/09/2022 02:48 PM Normal [facility] [place] Comment on above: Order Comment: Check Chest Tube Position, S/P Chest tube DC'd TROPONIN-Ion 03-09-2022 Troponin I.cardiac [Mass/Vol] 0.00 ng/mL Normal 0.00-0.04 [facility] Comment on above: Order Comment: No: D o not add to previous draw Result Comment: REFE RENCE RANGES: 0.00 - 0.04 ng/ml NORMAL 0.05 - 0.50 ng/ml INDETERMINATE > 0.50 ng/ml CONSISTENT WITH AN M.I. Performed By: #### 3 5200, 14292, 21397, 05479 #### [facility] [address] [facility] [place] [address], [facility] Troponin I.cardiac [Mass/Vol] 0.01 ng/mL Normal 0.00-0.04 [facility] [place] Comment on above: Order Comment: No: D o not add to previous draw Result Comment: REFE RENCE RANGES: 0.00 - 0.04 ng/ml NORMAL 0.05 - 0.50 ng/ml INDETERMINATE > 0.50 ng/ml CONSISTENT WITH AN M.I. Performed By: #### 3 5200 #### [facility] [address] [facility] [address] Troponin I.cardiac [Mass/Vol] 0.00 ng/mL Normal 0.00-0.04 [facility] Comment on above: Order Comment: No: D o not add to previous draw Result Comment: REFE RENCE RANGES: 0.00 - 0.04 ng/ml NORMAL 0.05 - 0.50 ng/ml INDETERMINATE > 0.50 ng/ml CONSISTENT WITH AN M.I. Performed By: #### 3 5200, 74204, 72962, 87491 #### [facility] [address] TSH3 WITH REFLEX FT4on 03-09 TSH 3RD GENERATION 0.60 uIU/mL Normal 0.34-5.60 [facility] [place] Comment on above: Order Comment: No: D o not add to previous draw Performed By: #### 3 5200, 38520, 32655, 71793 #### [facility] [address] URINALYSIS REFLEXon 03-09-20 Appearance (U) CLEAR Normal CLEAR [facility] Comment on above: Order Comment: Check Chest Tube Position, S/P Chest tube DC'd Performed By: #### 3 0965 ####[facility] [place] [address], [facility] Bilirubin Ql (U) Negative Normal NEGATIVE [facility] Comment on above: Order Comment: Check Chest Tube Position, S/P Chest tube DC'd Performed By: #### 3 0965 ####[facility] [place] [address], [facility] Color (U) STRAW Abnormal YELLOW [facility] Comment on above: Order Comment: Check Chest Tube Position, S/P Chest tube DC'd Performed By: #### 3 0965 ####[facility] [facility] [place] [address], [place] EPIS OCC Normal FEW,OCC,NONE SEEN [facility] Comment on above: Order Comment: Check Chest Tube Position, S/P Chest tube DC'd Performed By: #### 3 0965 ####[facility] Glucose Ql (U) Negative Normal NEGATIVE [facility] Comment on above: Order Comment: Check Chest Tube Position, S/P Chest tube DC'd Performed By: #### 3 0965 ####[facility] Hemoglobin Ql (U) MODERATE Abnormal NEGATIVE [facility] Comment on above: Order Comment: Check Chest Tube Position, S/P Chest tube DC'd Performed By: #### 3 0965 ####[facility] KETONE Negative Normal NEGATIVE [facility] Comment on above: Order Comment: Check Chest Tube Position, S/P Chest tube DC'd Performed By: #### 3 0965 ####[facility] [place] SHARMIN SMALL Abnormal NEGATIVE [facility] [place] Comment on above: Order Comment: Check Chest Tube Position, S/P Chest tube DC'd Performed By: #### 3 0965 ####[facility] MUCUS THREADS OCC Abnormal NONE SEEN [facility] [place] Comment on above: Order Comment: Check Chest Tube Position, S/P Chest tube DC'd Performed By: #### 3 0965 ####[facility] [address] Nitrite Ql (U) Negative Normal NEGATIVE [facility] [place] Comment on above: Order Comment: Check Chest Tube Position, S/P Chest tube DC'd Performed By: #### 3 0965 ####[facility]3000 [facility].[address] pH (U) 6.0 [pH] Normal 5.0-8.0 [facility] [place] Comment on above: Order Comment: Check Chest Tube Position, S/P Chest tube DC'd Performed By: #### 3 0965 ####[facility].[address] Protein Ql (U) Negative Normal NEGATIVE [facility] [place] Comment on above: Order Comment: Check Chest Tube Position, S/P Chest tube DC'd Performed By: #### 3 0965 ####[facility].[address] RBC 6-10 Abnormal NONE SEEN [facility] [place] Comment on above: Order Comment: Check Chest Tube Position, S/P Chest tube DC'd Performed By: #### 3 0965 ####[facility] [place] [address].[address] SPEC GRAV 1.015 Normal 1.015-1.020 [facility] [place] Comment on above: Order Comment: Check Chest Tube Position, S/P Chest tube DC'd Performed By: #### 3 0965 ####[facility].[address] WBC UA 11-20 Abnormal NONE SEEN [facility] [place] Comment on above: Order Comment: Check Chest Tube Position, S/P Chest tube DC'd Performed By: #### 3 0965 ####[facility].[address] CBC W MANUAL DIFFon 03-08-20 22 ATYPICAL LYMPH # Normal [facility] Comment on above: Performed By: #### C VDTBH #### [facility] [address] [place], [place] [address] Dr. Kayley Hatfield ATYPICAL LYMPH % Normal [facility] Comment on above: Performed By: #### C VDTBH #### [facility] [address] [place] [address] Dr. Kayley Hatfield BAND # Normal 0.0-0.3 [facility] Comment on above: Performed By: #### C VDTBH #### [facility] [address] [place] [address] Dr. Kayley Hatfield BAND % Normal 0-5 [facility] Comment on above: Performed By: #### C VDTBH #### [facility] [address] [place] [address] Dr. Kayley Hatfield BASOM # 0.00 103/ul Normal 0.00-0.10 [facility] Comment on above: Performed By: #### C VDTBH #### [facility] [address] [place] [address] Dr. Kayley Hatfield BASOM % 0.0 % Critically low 0.2-2.0 [facility] Comment on above: Performed By: #### C VDTBH #### [facility] [address] [place] [address] Dr. Kayley Hatfield BLAST # Normal [facility] Comment on above: Performed By: #### C VDTBH #### [facility] [address] [place] [address] Dr. Kayley Hatfield BLAST % Normal [facility] Comment on above: Performed By: #### C VDTBH #### [facility] [address] [place] [address] Dr. Kayley Hatfield CORRECTED WBC Normal 4.0-11.[address] [facility] Comment on above: Performed By: #### C VDTBH #### [facility] [address] [place] [address] Dr. Kayley Hatfield EOS # 0.14 103/ul Normal 0.00-0.70 [facility] Comment on above: Performed By: #### C VDTBH #### [facility] [address] [place] [address] Dr. Kayley Hatfield EOS% 1.0 % Normal 0.9-7.0 [facility] Comment on above: Performed By: #### C VDTBH #### [facility] [address] [place] [address] [address] Kayley Hatfield HCT 27.5 % Critically low 36.0-48.0 [facility] Comment on above: Performed By: #### C VDTBH #### [facility] [address] [place] [address] Dr. Kayley Hatfield HGB 7.9 g/dl Critically low 12.0-16.0 [facility] Comment on above: Performed By: #### C VDTBH #### [facility] [address] [place] [address] Dr. Kayley Hatfield LYMPHM # 1.42 103/ul Normal 1.20-3.80 [facility] Comment on above: Performed By: #### C VDTBH #### [facility] [address] [place] [address] Dr. Kayley Hatfield LYMPHM% 10.0 % Critically low 20.5-60.0 [facility] Comment on above: Performed By: #### C VDTBH #### [facility] [address] [place] [address] Dr. Kayley Hatfield MCH 21.5 pg Critically low 26.7-34.0 [facility] Comment on above: Performed By: #### C VDTBH #### [facility] [address] [place] [address] Dr. Kayley Hatfield MCHC 28.7 g/dl Critically low 29.9-35.2 [facility] Comment on above: Performed By: #### C VDTBH #### [facility] [address] [place] [address] Dr. Kayley Hatfield MCV 74.7 fL Critically low 81.0-99.0 [facility] Comment on above: Performed By: #### C VDTBH #### [facility] [address] [place] [address] Dr. Kayley Hatfield METAMYELOCYTE # Normal [facility] Comment on above: Performed By: #### C VDTBH #### [facility] [address] [place] [address] Dr. Kayley Hatfield METAMYELOCYTE % Normal [facility] Comment on above: Performed By: #### C VDTBH #### [facility] [address] [place] [address] [address] Kayley Hatfield MONOM# 2.13 103/ul Critically high 0.30-0.80 [facility] Comment on above: Performed By: #### C VDTBH #### [facility] [address] [address] [address] Kayley Hatfield MONOM% 15.0 % Critically high 1.7-12.0 [facility] Comment on above: Performed By: #### C VDTBH #### [facility] [address] [place] [address] Dr. Kayley Hatfield MPV 9.5 fL Normal 9.5-13.5 [facility] Comment on above: Performed By: #### C VDTBH #### [facility] [address] [place] [address] Dr. Kayley Hatfield MYELOCYTE # Normal [facility] Comment on above: Performed By: #### C VDTBH #### [facility] [address] [place] [address] Dr. Kayley Hatfield MYELOCYTE % Normal [facility] Comment on above: Performed By: #### C VDTBH #### [facility] [address] [place] [address] Dr. Kayley Hatfield NRBC Normal [facility] Comment on above: Performed By: #### C VDTBH #### [facility] [address] [place] [address] [address] Kayley Hatfield PLT 180 103/ul Normal 150-450 [facility] Comment on above: Performed By: #### C VDTBH #### [facility] [address] [place] [address] Dr. Kayley Hatfield RBC 3.68 106/ul Critically low 4.20-5.40 [facility] Comment on above: Performed By: #### C VDTBH #### [facility] [address] [place] [address] Dr. Kayley Hatfield RDW 27.5 % Critically high 11.0-15.0 [facility] Comment on above: Performed By: #### C VDTBH #### [facility] [address] [place] [address] Dr. Kayley Hatfield SEG # 10.51 103/ul Critically high 1.40-6.50 [facility] Comment on above: Performed By: #### C VDTBH #### [facility] [address] [place] [address] Dr. Kayley Hatfield SEG % 74.0 % Normal 43.0-75.0 [facility] Comment on above: Performed By: #### C VDTBH #### [facility] [address] [place] [address] Dr. Kayley Hatfield WBC 14.2 103/ul Critically high 4.0-11.0 [facility] Comment on above: Performed By: #### C VDTBH #### [facility] [address] [place] [address] Dr. Kayley Hatfield PRBC LEUKOREDUCEDon 03-08-20 22 ABO and Rh group Nom (Bld) Cross Match Result Compatible Unit Blood Type O Pos Unit Number [id number] Status Information Transfused Product ID Red Blood Cells Product Code [id number] Cross Match Result Compatible Blood Bank Notes CALLED TO VIC IN ICU @1657 Unit Blood Type O Pos Unit Number [id number] Status Information Transfused Product ID Red Blood Cells Product Code [id number] Normal [facility] Comment on above: Performed By: #### P RBC #### [facility] [address] [place] [address] Dr. Kayley Hatfield PROF CHEM 8 (BAS METB)on Anion gap [Moles/Vol] 10.1 mmol/L Normal [facility] Comment on above: Performed By: #### B LDCX1 #### [facility] [address] [place] [address] Dr. Kayley Hatfield Calcium [Mass/Vol] 8.8 mg/dL Normal 8.5-10.1 [facility] Comment on above: Performed By: #### B LDCX1 #### [facility] [address] [place] [address] [address] Kayley Hatfield Chloride [Moles/Vol] 100 mmol/L Normal 98-107 [facility] Comment on above: Performed By: #### B LDCX1 #### [facility] [address] [place] [address] [address] Kayley Hatfield CO2 [Moles/Vol] 34.2 mmol/L Critically high 21.0-32.0 [facility] Comment on above: Performed By: #### B LDCX1 #### [facility] [address] [address] [address] Kayley Hatfield EGFR-AF TUVALUAN >60 Normal >=60 [facility] Comment on above: Performed By: #### B LDCX1 #### [facility] [address] [place] [address] Dr. Kayley Hatfield EGFR-NON AF TUVALUAN >60 Normal >=60 [facility] Comment on above: Performed By: #### B LDCX1 #### [facility] [address] [place] [address] [address] Kayley Hatfield Glucose [Mass/Vol] 107 mg/dL Critically high 74-106 [facility] Comment on above: Performed By: #### B LDCX1 #### [facility] [address] [address] [address] Kayley Hatfield Potassium [Moles/Vol] 4.3 mmol/L Normal 3.5-5.1 [facility] Comment on above: Performed By: #### B LDCX1 #### [facility] [address] [place] [address] Dr. Kayley Hatfield Sodium [Moles/Vol] 140 mmol/L Normal 136-145 [facility] Comment on above: Performed By: #### B LDCX1 #### [facility] [address] [place] [address] [address] Kayley Hatfield Urea nitrogen [Mass/Vol] 15.0 mg/dL Normal 7.0-18.0 [facility] Comment on above: Performed By: #### B LDCX1 #### [facility] [address] [place] [address] [address] Kayley Hatfield Urea nitrogen/Creatinine [Mass ratio] 19.0 mg/mg Normal [facility] Comment on above: Performed By: #### B LDCX1 #### [facility] [address] [place] [address] Dr. Kayley Hatfield XR CHEST 1 Von [...] Date: 2022-03-08 07:02 Normal [facility] CBC W MANUAL DIFFon 03-07-20 22 ACANTHOCYTES SLIGHT Normal [facility] Comment on above: Performed By: #### B LDCX1 #### [facility] [address] [place] [address] Dr. Kayley Hatfield ANISOCYTOSIS 2+ Normal [facility] Comment on above: Performed By: #### B LDCX1 #### [facility] [address] [place] [address] Dr. Kayley Hatfield ATYPICAL LYMPH # Normal [facility] Comment on above: Performed By: #### B LDCX1 #### [facility] [address] [place] [address] Dr. Kayley Hatfield ATYPICAL LYMPH % Normal [facility] Comment on above: Performed By: #### B LDCX1 #### [facility] [address] [place] [address] Dr. Kayley Hatfield BAND # 0.0 103/ul Normal 0.0-0.3 [facility] Comment on above: Performed By: #### B LDCX1 #### [facility] [address] [place] [address] Dr. Kayley Hatfield BAND % 0 % Normal 0-5 [facility] Comment on above: Performed By: #### B LDCX1 #### [facility] [address] [address] [address] Kayley Hatfield BASOM # 0.00 103/ul Normal 0.00-0.10 [facility] Comment on above: Performed By: #### B LDCX1 #### [facility] [address] [place] [address] Dr. Kayley Hatfield BASOM % 0.0 % Critically low 0.2-2.0 [facility] Comment on above: Performed By: #### B LDCX1 #### [facility] [address] [place] [address] Dr. Kayley Hatfield BLAST # Normal [facility] Comment on above: Performed By: #### B LDCX1 #### [facility] [address] [place] [address] Dr. Kayley Hatfield BLAST % Normal [facility] Comment on above: Performed By: #### B LDCX1 #### [facility] [address] [place] [address] Dr. Kayley Hatfield ANDREE CELLS SLIGHT Normal [facility] Comment on above: Performed By: #### B LDCX1 #### [facility] [address] [place] [address] Dr. Kayley Hatfield CORRECTED WBC Normal 4.0-11.[address] [facility] Comment on above: Performed By: #### B LDCX1 #### [facility] [address] [place] [address] Dr. Kayley Hatfield EOS # 0.16 103/ul Normal 0.00-0.70 [facility] Comment on above: Performed By: #### B LDCX1 #### [facility] [address] [place] [address] Dr. Kayley Hatfield EOS% 1.0 % Normal 0.9-7.0 [facility] Comment on above: Performed By: #### B LDCX1 #### [facility] [address] [place] [address] [address] Kayley Hatfield GIANT PLATELETS SEEN Normal [facility] Comment on above: Performed By: #### B LDCX1 #### [facility] [address] [address] [address] Kayley Hatfield HCT 31.1 % Critically low 36.0-48.0 [facility] Comment on above: Performed By: #### B LDCX1 #### [facility] [address] [address] [address] Kayley Hatfield HGB 9.1 g/dl Critically low 12.0-16.0 [facility] Comment on above: Performed By: #### B LDCX1 #### [facility] [address] [address] [address] Kayley Hatfield HYPOCHROMASIA 1+ Normal [facility] Comment on above: Performed By: #### B LDCX1 #### [facility] [address] [address] [address] Kayley Hatfield LYMPHM # 2.09 103/ul Normal 1.20-3.80 [facility] Comment on above: Performed By: #### B LDCX1 #### [facility] [address] [address] [address] Kayley Hatfield LYMPHM% 13.0 % Critically low 20.5-60.0 [facility] Comment on above: Performed By: #### B LDCX1 #### [facility] [address] [address] [address] Kayley Hatfield MCH 21.4 pg Critically low 26.7-34.0 [facility] Comment on above: Performed By: #### B LDCX1 #### [facility] [address] [address] [address] Kayley Hatfield MCHC 29.3 g/dl Critically low 29.9-35.2 [facility] Comment on above: Performed By: #### B LDCX1 #### [facility] [address] [address] [address] Kayley Hatfield MCV 73.0 fL Critically low 81.0-99.0 [facility] Comment on above: Performed By: #### B LDCX1 #### [facility] [address] [place] [address] Dr. Kayley Hatfield METAMYELOCYTE # Normal [facility] Comment on above: Performed By: #### B LDCX1 #### [facility] [address] [place] [address] Dr. Kayley Hatfield METAMYELOCYTE % Normal [facility] Comment on above: Performed By: #### B LDCX1 #### [facility] [address] [place] [address] Dr. Kayley Hatfield MICROCYTOSIS SLIGHT Normal [facility] Comment on above: Performed By: #### B LDCX1 #### [facility] [address] [place] [address] Dr. Kayley Hatfield MONOM# 0.48 103/ul Normal 0.30-0.80 [facility] Comment on above: Performed By: #### B LDCX1 #### [facility] [address] [place] [address] Dr. Kayley Hatfield MONOM% 3.0 % Normal 1.7-12.0 [facility] Comment on above: Performed By: #### B LDCX1 #### [facility] [address] [place] [address] Dr. Kayley Hatfield MPV 8.9 fL Critically low 9.5-13.5 [facility] Comment on above: Performed By: #### B LDCX1 #### [facility] [address] [place] [address] Dr. Kayley Hatfield MYELOCYTE # Normal [facility] Comment on above: Performed By: #### B LDCX1 #### [facility] [address] [place] [address] Dr. Kayley Hatfield MYELOCYTE % Normal [facility] Comment on above: Performed By: #### B LDCX1 #### [facility] [address] [place] [address] Dr. Kayley Hatfield NRBC Normal [facility] Comment on above: Performed By: #### B LDCX1 #### [facility] [address] [place], [place] [address] Dr. Kayley Hatfield PLT 243 103/ul Normal 150-450 [facility] Comment on above: Performed By: #### B LDCX1 #### [facility] [id number] Kayley Hatfield RBC 4.26 106/ul Normal 4.20-5.40 [facility] Comment on above: Performed By: #### B LDCX1 #### [facility] [address] [address] [address] Kayley Hatfield RDW 27.1 % Critically high 11.0-15.0 [facility] Comment on above: Performed By: #### B LDCX1 #### [facility] [address] [place] [address] Dr. Kayley Hatfield SEG # 13.36 103/ul Critically high 1.40-6.50 [facility] Comment on above: Performed By: #### B LDCX1 #### [facility] [address] [address] [address] Kayley Hatfield SEG % 83.0 % Critically high 43.0-75.0 [facility] Comment on above: Performed By: #### B LDCX1 #### [facility] [id number] Kayley Hatfield WBC 16.1 103/ul Critically high 4.0-11.0 [facility] Comment on above: Performed By: #### B LDCX1 #### [facility] [address] [address] [address] CHEST WO CONon [...] Date: 2022-03-07 09:42 Normal [facility] HEMOGLOBIN AND HEMATOCRITon 03-07-2022 Hematocrit (Bld) [Volume fraction] 31.8 % Critically low 36.0-48.0 [facility] Comment on above: Performed By: #### H GBHCT #### [facility] [address] [place] [address] Dr. Kayley Hatfield Hemoglobin (Bld) [Mass/Vol] 9.5 g/dL Critically low 12.0-16.0 [facility] Comment on above: Performed By: #### H GBHCT #### [facility] [address] [address] [address] Kayley Hatfield RETICULOCYTEon 03-07-2022 RETIC 1.92 % Normal 0.60-3.10 [facility] Comment on above: Performed By: #### O BSCRN #### [facility] [address] [place] [address] Dr. Kayley Hatfield XR CHEST 1 Von [...] Date: 2022-03-07 12:54 Normal [facility] XR CHEST 1 V EXAM: XR CHEST [...] Date: 2022-03-07 07:10 Normal [facility] BNPon 03-06-2022 Natriuretic peptide B (Bld) [Mass/Vol] 441.0 pg/mL Normal <=900.0 [facility] Comment on above: Performed By: #### H GBHCT #### [facility] [address] [place] [address] Dr. Kayley Hatfield CBC AUTO DIFFon 03-06-2022 BASO # 0.1 103/ul Normal 0.0-0.1 [facility] Comment on above: Performed By: #### O BSCRN #### [facility] [address] [place] [address] Dr. Kayley Hatfield Basophils/100 WBC (Bld) 0.7 % Normal 0.2-2.0 [facility] Comment on above: Performed By: #### O BSCRN #### [facility] [address] [place] [address] Dr. Kayley Hatfield EO # 0.1 103/ul Normal 0.0-0.7 [facility] Comment on above: Performed By: #### O BSCRN #### [facility] [address] [place] [address] Dr. Kayley Hatfield Eosinophils/100 WBC (Bld) 0.7 % Critically low 0.9-7.0 [facility] Comment on above: Performed By: #### O BSCRN #### [facility] [address] [place] [address] Dr. Kayley Hatfield Erythrocyte distribution width (RBC) [Ratio] 20.0 % Critically high 11.0-15.0 [facility] Comment on above: Performed By: #### O BSCRN #### [facility] [address] [place] [address] Dr. Kayley Hatfield Hematocrit (Bld) [Volume fraction] 20.1 % Critically low 36.0-48.0 [facility] Comment on above: Performed By: #### O BSCRN #### [facility] [address] [place] [address] Dr. Kayley Hatfield Hemoglobin (Bld) [Mass/Vol] 4.9 g/dL Critically low 12.0-16.0 [facility] Comment on above: Performed By: #### O BSCRN #### [facility] [address] [place] [address] Dr. Kayley Hatfield IG # 0.12 10e3/ul Critically high 0.00-0.03 [facility] Comment on above: Performed By: #### O BSCRN #### [facility] [address] [place] [address] Dr. Kayley Hatfield IG % 0.8 % Critically high 0.0-0.5 [facility] Comment on above: Performed By: #### O BSCRN #### [facility] [address] [place] [address] Dr. Kayley Hatfield LYMPH # 1.0 103/ul Critically low 1.2-3.8 [facility] Comment on above: Performed By: #### O BSCRN #### [facility] [address] [place] [address] Dr. Kayley Hatfield Lymphocytes/100 WBC (Bld) 6.5 % Critically low 20.5-60.0 [facility] Comment on above: Performed By: #### O BSCRN #### [facility] [address] [place] [address] Dr. Kayley Hatfield MANUAL DIFF REQ NO Normal [facility] Comment on above: Performed By: #### O BSCRN #### [facility] [address] [place] [address] Dr. Kayley Hatfield MCH (RBC) [Entitic mass] 15.2 pg Critically low 26.7-34.0 [facility] Comment on above: Performed By: #### O BSCRN #### [facility] [address] [place] [address] Dr. Kayley Hatfield MCHC (RBC) [Mass/Vol] 24.4 g/dL Critically low 29.9-35.2 [facility] Comment on above: Performed By: #### O BSCRN #### [facility] [address] [place] [address] Dr. Kayley Hatfield MCV (RBC) [Entitic vol] 62.2 fL Critically low 81.0-99.0 [facility] Comment on above: Performed By: #### O BSCRN #### [facility] [address] [place] [address] Dr. Kayley Hatfield MONO # 0.5 103/ul Normal 0.3-0.8 [facility] Comment on above: Performed By: #### O BSCRN #### [facility] [address] [place] [address] Dr. Kayley Hatfield Monocytes/100 WBC (Bld) 3.5 % Normal 1.7-12.0 [facility] Comment on above: Performed By: #### O BSCRN #### [facility] [address] [place] [address] Dr. Kayley Hatfield NEUT # 13.2 103/ul Critically high 1.4-6.5 [facility] Comment on above: Performed By: #### O BSCRN #### [facility] [address] [place] [address] Dr. Kayley Hatfield Neutrophils/100 WBC (Bld) 87.8 % Critically high 43.0-75.0 [facility] Comment on above: Performed By: #### O BSCRN #### [facility] [address] [place] [address] Dr. Kayley Hatfield Platelet mean volume (Bld) [Entitic vol] 9.1 fL Critically low 9.5-13.5 [facility] Comment on above: Performed By: #### O BSCRN #### [facility] [address] [place] [address] Dr. Kayley Hatfield PLT 384 103/ul Normal 150-450 [facility] Comment on above: Performed By: #### O BSCRN #### [facility] [address] [place] [address] Dr. Kayley Hatfield RBC 3.23 106/ul Critically low 4.20-5.40 [facility] Comment on above: Performed By: #### O BSCRN #### [facility] [address] [place] [address] Dr. Kayley Hatfield WBC 15.1 103/ul Critically high 4.0-11.0 [facility] Comment on above: Performed By: #### O BSCRN #### [facility] [address] [place] [address] Dr. Kayley Hatfield CULTURE BLOODon 03-06-2022 Microscopic examination of blood, culture Culture Observations: NO GROWTH AT 5 DAYS. Normal [facility] Comment on above: Performed By: #### C VDTBH #### [facility] [address] [place] [address] Dr. Kayley Hatfield Performed By: #### B LDCX1 #### [facility] [address] [place] [address] Dr. Kayley Hatfield Covid-19 PCR (CVDTB)on 02-07 SARS-CoV-2 (COVID-19) RNA ELBA+probe Ql (Unsp spec) Not detected Normal NOT DETECTED [facility] Comment on above: Result Comment: When diagnostic [...] for this test is supported by the Deposit of Health and Human Service's declaration that [...] By: #### C VDTBH #### [facility] [address] [place] [address] Dr. Kayley Hatfield ER URINE PROFILEon 2 Bilirubin Ql (U) Negative Normal NEGATIVE [facility] Comment on above: Performed By: #### P RBC #### [facility] [address] [place] [address] Dr. Kayley Hatfield Clarity (U) CLEAR Normal CLEAR [facility] Comment on above: Performed By: #### P RBC #### [facility] [address] [place] [address] Dr. Kayley Hatfield Color (U) LT. YELLOW Normal YELLOW [facility] Comment on above: Performed By: #### P RBC #### [facility] [address] [place] [address] Dr. Kayley Hatfield ERUAHD A micrscopic examination will be performed if indicated. Normal [facility] Comment on above: Performed By: #### P RBC #### [facility] [address] [place] [address] Dr. Kayley Hatfield Glucose Ql (U) Negative Normal NEGATIVE [facility] Comment on above: Performed By: #### P RBC #### [facility] [address] [place] [address] Dr. Kayley Hatfield Hemoglobin Ql (U) Negative Normal NEGATIVE [facility] Comment on above: Performed By: #### P RBC #### [facility] [address] [place] [address] Dr. Kayley Hatfield Ketones Ql (U) Negative Normal NEGATIVE [facility] Comment on above: Performed By: #### P RBC #### [facility] [address] [place] [address] Dr. Kayley Hatfield LEUKOCYTES Negative Normal NEGATIVE [facility] Comment on above: Performed By: #### P RBC #### [facility] [address] [place] [address] Dr. Kayley Hatfield Nitrite Ql (U) Negative Normal NEGATIVE [facility] Comment on above: Performed By: #### P RBC #### [facility] [address] [place] [address] Dr. Kayley Hatfield pH (U) 6.0 [pH] Normal 5-9 [facility] Comment on above: Performed By: #### P RBC #### [facility] [address] [place] [address] Dr. Kayley Hatfield SPEC GRAVITY 1.010 Normal 1.005-<=1.025 [facility] Comment on above: Performed By: #### P RBC #### [facility] [address] [place] [address] Dr. Kayley Hatfield UA PROTEIN Negative Normal NEGATIVE/ TRACE [facility] Comment on above: Performed By: #### P RBC #### [facility] [address] [place] [address] Dr. Kayley Hatfield UR MICRO IND NOT INDICATED Normal [facility] Comment on above: Performed By: #### P RBC #### [facility] [address] [place] [address] Dr. Kayley Hatfield Urobilinogen Qn (U) 0.2 {Lu'U}/dL Normal 0.2 - 1. 0 [facility] Comment on above: Performed By: #### P RBC #### [facility] [address] [place] [address] Dr. Kayley Hatfield FERRITINon 03-06-2022 Ferritin [Mass/Vol] 4.0 ng/mL Critically low 8.0-252.0 [facility] Comment on above: Performed By: #### O BSCRN #### [facility] [address] [address] [address] Kayley Hatfield IRON AND TIBCon 03-06-2022 % SATURATION 2.3 % Normal [facility] Comment on above: Performed By: #### C VDTBH #### [facility] [address] [address] [address] Kayley Hatfield Iron [Mass/Vol] 12.0 ug/dL Critically low 50.0-170.0 [facility] Comment on above: Performed By: #### C VDTBH #### [facility] [address] [place] [address] Dr. Kayley Hatfield TIBC DIRECT 532.0 ug/dL Critically high 250.0-450.0 [facility] Comment on above: Performed By: #### C VDTBH #### [facility] [address] [place] [address] Dr. Kayley Hatfield OCC BLD IMMUNO SCREENon 02-07 OCCULT BLOOD Negative Normal NEGATIVE [facility] Comment on above: Performed By: #### O BSCRN #### [facility] [address] [place] [address] Dr. Kayley Hatfield PROF 14(COMP METB)on 022 Albumin [Mass/Vol] 3.6 g/dL Normal 3.4-5.0 [facility] Comment on above: Performed By: #### H GBHCT #### [facility] [address] [place] [address] Dr. Kayley Hatfield Albumin/Globulin [Mass ratio] 1.2 {ratio} Normal [facility] Comment on above: Performed By: #### H GBHCT #### [facility] [address] [place] [address] Dr. Kayley Hatfield ALP [Catalytic activity/Vol] 71 U/L Normal 46-116 [facility] Comment on above: Performed By: #### H GBHCT #### [facility] [address] [address] [address] Kayley Hatfield ALT [Catalytic activity/Vol] 20 U/L Normal 14-59 [facility] Comment on above: Performed By: #### H GBHCT #### [facility] [address] [address] [address] Kayley Hatfield Anion gap [Moles/Vol] 9.8 mmol/L Normal [facility] Comment on above: Performed By: #### H GBHCT #### [facility] [address] [address] [address] Kayley Hatfield AST [Catalytic activity/Vol] 12 U/L Critically low 15-37 [facility] Comment on above: Performed By: #### H GBHCT #### [facility] [address] [address] [address] Kayley Hatfield Bilirubin [Mass/Vol] 0.4 mg/dL Normal 0.2-1.0 [facility] Comment on above: Performed By: #### H GBHCT #### [facility] [address] [address] [address] Kayley Hatfield Calcium [Mass/Vol] 9.0 mg/dL Normal 8.5-10.1 [facility] Comment on above: Performed By: #### H GBHCT #### [facility] [address] [address] [address] Kayley Hatfield Chloride [Moles/Vol] 99 mmol/L Normal 98-107 [facility] Comment on above: Performed By: #### H GBHCT #### [facility] [address] [address] [address] Kayley Hatfield CO2 [Moles/Vol] 31.5 mmol/L Normal 21.0-32.0 [facility] Comment on above: Performed By: #### H GBHCT #### [facility] [address] [address] [address] Kayley Hatfield Creatinine [Mass/Vol] 0.89 mg/dL Normal 0.55-1.02 [facility] Comment on above: Performed By: #### H GBHCT #### [facility] [address] [address] [address] Kayley Hatfiled EGFR-AF TUVALUAN >60 Normal >=60 [facility] Comment on above: Performed By: #### H GBHCT #### [facility] [address] [address] [address] Kayley Hatfield EGFR-NON AF TUVALUAN >60 Normal >=60 [facility] Comment on above: Performed By: #### H GBHCT #### [facility] [address] [address] [address] Kayley Hatfield Globulin (S) [Mass/Vol] 3.1 g/dL Normal [facility] Comment on above: Performed By: #### H GBHCT #### [facility] [address] [address] [address] Kayley Hatfield Glucose [Mass/Vol] 174 mg/dL Critically high 74-106 T [facility] Comment on above: Performed By: #### H GBHCT #### [facility] [address] [address] [address] Kayley Hatfield Potassium [Moles/Vol] 4.3 mmol/L Normal 3.5-5.1 [facility] Comment on above: Performed By: #### H GBHCT #### [facility] [address] [address] [address] Kayley Hatfield Protein [Mass/Vol] 6.7 g/dL Normal 6.4-8.2 [facility] Comment on above: Performed By: #### H GBHCT #### [facility] [address] [address] [address] Kayley Hatfield Sodium [Moles/Vol] 136 mmol/L Normal 136-145 [facility] Comment on above: Performed By: #### H GBHCT #### [facility] [address] [address] [address] Kayley Hatfield Urea nitrogen [Mass/Vol] 17.0 mg/dL Normal 7.0-18.0 [facility] Comment on above: Performed By: #### H GBHCT #### [facility] [address] [place], [place] [address] Dr[address] Kayley Hatfield Urea nitrogen/Creatinine [Mass ratio] 19.1 mg/mg Normal [facility] Comment on above: Performed By: #### H GBHCT #### [facility] [address] [place], [place] [address] Dr[address] Kayley Hatfield TROPONIN, HIGH SENSITIVITYon 03-06-2022 HSTROP 7.0 pg/mL Normal 4.0-51.3 [facility] Comment on above: Result Comment: CUT- OFF POINTS HAVE BEEN ESTABLISHED BASED ON THE FOURTH UNIVERSAL DEFINITIONS OF MYOCARDIAL INFARCTION. THE UPPER REFERENCE LIMIT (URL) OF TROPONIN, DEFINED THE 99TH PERCENTILE OF cTnI DISTRIBUTION IN A REFERENCE POPULATION, HAS BEEN CONFIRMED THE DECISION THRESHOLD FOR [place] DIAGNOSIS. Performed By: #### H GBHCT #### [facility] [address] [address] [address] Kayley Hatfield TYPE AND SCREENon 03-06-2022 TYPE AND SCREEN Negative Normal [facility] Comment on above: Performed By: #### C VDTB #### [facility] [address] [place], [place] [address] Dr. Kayley Hatfield XR CHEST 1 Von [...] Date: 2022-03-06 16:10 Normal [facility] XR CHEST 1 V EXAMINATION: XR CHES [...] MIGUE REYNOSO Date: 2022-03-06 14:39 Normal [facility] XR DEXA BONE DENSITYon 12-22 XR DEXA [...] Date: 2021-12-22 17:05 Normal [facility] CARDIAC ABDIAZIZ ADMITon 022 CK [Catalytic activity/Vol] 21 U/L Critically low 26-192 [facility] Comment on above: Performed By: #### B [id number] #### [facility] [address] [address] [address] Kayley Hatfield CK.MB [Mass/Vol] 1.00 ng/mL Normal <=3.60 [facility] Comment on above: Performed By: #### B LDCX1 #### [facility] [address] [address] [address] Kayley Hatfield HSTROP 11.6 pg/mL Normal 4.0-51.3 [facility] Comment on above: Result Comment: CUT- OFF POINTS HAVE BEEN ESTABLISHED BASED ON THE FOURTH UNIVERSAL DEFINITIONS OF MYOCARDIAL INFARCTION. THE UPPER REFERENCE LIMIT (URL) OF TROPONIN, DEFINED THE 99TH PERCENTILE OF cTnI DISTRIBUTION IN A REFERENCE POPULATION, HAS BEEN CONFIRMED THE DECISION THRESHOLD FOR [place] DIAGNOSIS. Performed By: #### B [id number] #### [facility] [address] [place] [address] Dr. Kayley Hatfield ROD 48 ng/mL Normal 9-82 [facility] Comment on above: Performed By: #### B [id number] #### [facility] [address] [place] [address] Dr. Kayley Hatfield CBC AUTO DIFFon 12-14-2021 BASO # 0.1 103/ul Normal 0.0-0.1 [facility] Comment on above: Performed By: #### P RBC #### [facility] [address] [place] [address] Dr. Kayley Hatfield Basophils/100 WBC (Bld) 0.9 % Normal 0.2-2.0 [facility] Comment on above: Performed By: #### P RBC #### [facility] [address] [place] [address] Dr. Kayley Hatfield EO # 0.1 103/ul Normal 0.0-0.7 [facility] Comment on above: Performed By: #### P RBC #### [facility] [address] [place] [address] Dr. Kayley Hatfield Eosinophils/100 WBC (Bld) 0.5 % Critically low 0.9-7.0 [facility] Comment on above: Performed By: #### P RBC #### [facility] [address] [place] [address] Dr. Kayley Hatfield Erythrocyte distribution width (RBC) [Ratio] 15.4 % Critically high 11.0-15.0 [facility] Comment on above: Performed By: #### P RBC #### [facility] [address] [place] [address] Dr. Kayley Hatfield Hematocrit (Bld) [Volume fraction] 29.3 % Critically low 36.0-48.0 [facility] Comment on above: Performed By: #### P RBC #### [facility] [address] [address] [address] Kayley Hatfield Hemoglobin (Bld) [Mass/Vol] 8.3 g/dL Critically low 12.0-16.0 [facility] Comment on above: Performed By: #### P RBC #### [facility] [address] [address] [address] Kayley Hatfield IG # 0.05 10e3/ul Critically high 0.00-0.03 [facility] Comment on above: Performed By: #### P RBC #### [facility] [address] [place] [address] Dr. Kayley Hatfield IG % 0.4 % Normal 0.0-0.5 [facility] Comment on above: Performed By: #### P RBC #### [facility] [address] [place] [address] Dr. Kayley Hatfield LYMPH # 1.2 103/ul Normal 1.2-3.8 [facility] Comment on above: Performed By: #### P RBC #### [facility] [address] [place] [address] Dr. Kayley Hatfield Lymphocytes/100 WBC (Bld) 10.6 % Critically low 20.5-60.0 [facility] Comment on above: Performed By: #### P RBC #### [facility] [address] [place] [address] Dr. Kayley Hatfield MANUAL DIFF REQ NO Normal [facility] Comment on above: Performed By: #### P RBC #### [facility] [address] [place] [address] Dr. Kayley Hatfield MCH (RBC) [Entitic mass] 21.4 pg Critically low 26.7-34.0 [facility] Comment on above: Performed By: #### P RBC #### [facility] [address] [place] [address] Dr. Kayley Hatfield MCHC (RBC) [Mass/Vol] 28.3 g/dL Critically low 29.9-35.2 [facility] Comment on above: Performed By: #### P RBC #### [facility] [address] [place] [address] Dr. Kayley Hatfield MCV (RBC) [Entitic vol] 75.5 fL Critically low 81.0-99.0 [facility] Comment on above: Performed By: #### P RBC #### [facility] [address] [place] [address] Dr. Kayley Hatfield MONO # 0.9 103/ul Critically high 0.3-0.8 [facility] Comment on above: Performed By: #### P RBC #### [facility] [address] [address] [address] Kayley Hatfield Monocytes/100 WBC (Bld) 7.6 % Normal 1.7-12.0 [facility] Comment on above: Performed By: #### P RBC #### [facility] [address] [place] [address] Dr. Kayley Hatfield NEUT # 9.2 103/ul Critically high 1.4-6.5 [facility] Comment on above: Performed By: #### P RBC #### [facility] [address] [place] [address] Dr. Kayley Hatfield Neutrophils/100 WBC (Bld) 80.0 % Critically high 43.0-75.0 [facility] Comment on above: Performed By: #### P RBC #### [facility] [address] [place] [address] Dr. Kayley Hatfield Platelet mean volume (Bld) [Entitic vol] 9.3 fL Critically low 9.5-13.5 [facility] Comment on above: Performed By: #### P RBC #### [facility] [address] [place] [address] Dr. Kayley Hatfield PLT 498 103/ul Critically high 150-450 [facility] Comment on above: Performed By: #### P RBC #### [facility] [address] [place] [address] Dr. Kayley Hatfield RBC 3.88 106/ul Critically low 4.20-5.40 [facility] Comment on above: Performed By: #### P RBC #### [facility] [address] [place] [address] Dr. Kayley Hatfield WBC 11.5 103/ul Critically high 4.0-11.0 [facility] Comment on above: Performed By: #### P RBC #### [facility] [address] [place] [address] Dr. Kayley Hatfield ER URINE PROFILEon 2 Bilirubin Ql (U) Negative Normal NEGATIVE [facility] Comment on above: Performed By: #### H GBHCT #### [facility] [address] [place] [address] Dr. Kayley Hatfield Clarity (U) CLEAR Normal CLEAR [facility] Comment on above: Performed By: #### H GBHCT #### [facility] [address] [place] [address] Dr. Kayley Hatfield Color (U) LT. YELLOW Normal YELLOW [facility] Comment on above: Performed By: #### H GBHCT #### [facility] [address] [place] [address] Dr. Kayley AZARBetsey A micrscopic examination will be performed if indicated. Normal [facility] Comment on above: Performed By: #### H GBHCT #### [facility] [address] [place] [address] Dr. Kayley Hatfield Glucose Ql (U) Negative Normal NEGATIVE [facility] Comment on above: Performed By: #### H GBHCT #### [facility] [address] [place] [address] Dr. Kayley Hatfield Hemoglobin Ql (U) TRACE-INTACT Abnormal NEGATIVE [facility] Comment on above: Performed By: #### H GBHCT #### [facility] [address] [place] [address] Dr. Kayley Hatfield Ketones Ql (U) Negative Normal NEGATIVE [facility] Comment on above: Performed By: #### H GBHCT #### [facility] [address] [place] [address] Dr. Kayley Hatfield LEUKOCYTES Negative Normal NEGATIVE [facility] Comment on above: Performed By: #### H GBHCT #### [facility] [address] [place] [address] Dr. Kayley Hatfield Nitrite Ql (U) Negative Normal NEGATIVE [facility] Comment on above: Performed By: #### H GBHCT #### [facility] [address] [place] [address] Dr. Kayley Hatfield pH (U) 6.5 [pH] Normal 5-9 [facility] Comment on above: Performed By: #### H GBHCT #### [facility] [address] [place] [address] Dr. Kayley Hatfield SPEC GRAVITY 1.015 Normal 1.005-<=1.025 [facility] Comment on above: Performed By: #### H GBHCT #### [facility] [address] [place] [address] Dr. Kayley Hatfield UA PROTEIN Negative Normal NEGATIVE/ TRACE [facility] Comment on above: Performed By: #### H GBHCT #### [facility] [address] [place] [address] Dr. Kayley Hatfield UR MICRO IND INDICATED Normal [facility] Comment on above: Performed By: #### H GBHCT #### [facility] [address] [place] [address] Dr. Kayley Hatfield Urobilinogen Qn (U) 0.2 {Lu'U}/dL Normal 0.2 - 1. 0 [facility] Comment on above: Performed By: #### H GBHCT #### [facility] [address] [place] [address] Dr. Kayley Hatfield PROF 14(COMP METB)on 022 Albumin [Mass/Vol] 3.2 g/dL Critically low 3.4-5.0 [facility] Comment on above: Performed By: #### B [id number] #### [facility] [address] [place] [address] Dr. Kayley Hatfield Albumin/Globulin [Mass ratio] 0.8 {ratio} Normal [facility] Comment on above: Performed By: #### B LDCX1 #### [facility] [address] [place] [address] Dr. Kayley Hatfield ALP [Catalytic activity/Vol] 72 U/L Normal 46-116 [facility] Comment on above: Performed By: #### B [id number] #### [facility] [address] [place] [address] Dr. Kayley Hatfield ALT [Catalytic activity/Vol] 24 U/L Normal 14-59 [facility] Comment on above: Performed By: #### B [id number] #### [facility] [address] [place] [address] Dr. Kayley Hatfield Anion gap [Moles/Vol] 13.0 mmol/L Normal [facility] Comment on above: Performed By: #### B LDCX1 #### [facility] [address] [place] [address] Dr. Kayley Hatfield AST [Catalytic activity/Vol] 18 U/L Normal 15-37 [facility] Comment on above: Performed By: #### B LDCX1 #### [facility] [address] [place] [address] Dr. Kayley Hatfield Bilirubin [Mass/Vol] 0.3 mg/dL Normal 0.2-1.0 [facility] Comment on above: Performed By: #### B LDCX1 #### [facility] [address] [place] [address] Dr. Kayley Hatfield Calcium [Mass/Vol] 9.9 mg/dL Normal 8.5-10.1 [facility] Comment on above: Performed By: #### B [id number] #### [facility] [address] [place] [address] Dr. Kayley Hatfield Chloride [Moles/Vol] 98 mmol/L Normal 98-107 [facility] Comment on above: Performed By: #### B LDCX1 #### [facility] [address] [place] [address] Dr. Kayley Hatfield CO2 [Moles/Vol] 29.8 mmol/L Normal 21.0-32.0 [facility] Comment on above: Performed By: #### B LDCX1 #### [facility] [address] [place] [address] Dr. Kayley Hatfield Creatinine [Mass/Vol] 1.23 mg/dL Critically high 0.55-1.02 [facility] Comment on above: Performed By: #### B LDCX1 #### [facility] [address] [address] [address] Kayley Hatfield EGFR-AF TUVALUAN 53 mL/min/1.73m2 Critically low >=60 [facility] Comment on above: Performed By: #### B LDCX1 #### [facility] [address] [place] [address] Dr. Kayley Hatfield EGFR-NON AF TUVALUAN 44 mL/min/1.73m2 Critically low >=60 [facility] Comment on above: Performed By: #### B LDCX1 #### [facility] [address] [place] [address] Dr. Kayley Hatfield Globulin (S) [Mass/Vol] 3.9 g/dL Normal [facility] Comment on above: Performed By: #### B LDCX1 #### [facility] [address] [place] [address] Dr. Kayley Hatfield Glucose [Mass/Vol] 160 mg/dL Critically high 74-106 [facility] Comment on above: Performed By: #### B LDCX1 #### [facility] [address] [place] [address] Dr. Kayley Hatfield Potassium [Moles/Vol] 3.8 mmol/L Normal 3.5-5.1 [facility] Comment on above: Performed By: #### B LDCX1 #### [facility] [address] [place] [address] Dr. Kayley Hatfield Protein [Mass/Vol] 7.1 g/dL Normal 6.4-8.2 [facility] Comment on above: Performed By: #### B LDCX1 #### [facility] [address] [place] [address] Dr. Kayley Hatfield Sodium [Moles/Vol] 137 mmol/L Normal 136-145 [facility] Comment on above: Performed By: #### B LDCX1 #### [facility] [address] [place] [address] Dr. Kyaley Hatfield Urea nitrogen [Mass/Vol] 20.0 mg/dL Critically high 7.0-18.0 [facility] Comment on above: Performed By: #### B LDCX1 #### [facility] [address] [place] [address] Dr. Kayley Hatfield Urea nitrogen/Creatinine [Mass ratio] 16.3 mg/mg Normal [facility] Comment on above: Performed By: #### B LDCX1 #### [facility] [address] [place] [address] Dr. Kayley Hatfiled TROPONIN, HIGH SENSITIVITYon 12-14-2021 HSTROP 11.3 pg/mL Normal 4.0-51.3 [facility] Comment on above: Result Comment: CUT- OFF POINTS HAVE BEEN ESTABLISHED BASED ON THE FOURTH UNIVERSAL DEFINITIONS OF MYOCARDIAL INFARCTION. THE UPPER REFERENCE LIMIT (URL) OF TROPONIN, DEFINED THE 99TH PERCENTILE OF cTnI DISTRIBUTION IN A REFERENCE POPULATION, HAS BEEN CONFIRMED THE DECISION THRESHOLD FOR [place] DIAGNOSIS. Performed By: #### P RTELEC #### [facility] [address] [place] [address] Dr. Kayley Hatfield URINE MICROSCOPIC ONLYon BACTERIA NONE SEEN Normal NONE SEEN The [facility] Comment on above: Performed By: #### H GBHCT #### [facility] [address] [place] [address] Dr. Kayley Hatfield Bacteria identified Cx Nom (U) NOT INDICATED Normal [facility] Comment on above: Performed By: #### H GBHCT #### [facility] [address] [place] [address] Dr. Kayley Hatfield CAST SEEN Abnormal NONE SEEN [facility] Comment on above: Performed By: #### H GBHCT #### [facility] [address] [place] [address] Dr. Kayley Hatfield Crystals LM Nom (Urine sed) NONE SEEN Normal NONE SEEN The [facility] Comment on above: Performed By: #### H GBHCT #### [facility] [address] [place] [address] Dr. Kayley Hatfield Epithelial cells LM Ql (Urine sed) FEW Abnormal NONE SEEN /RARE [facility] Comment on above: Performed By: #### H GBHCT #### [facility] [address] [address] [address] Kayley Hatfield HYALINE CAST RARE Normal [facility] Comment on above: Performed By: #### H GBHCT #### [facility] [address] [address] [address] Kayley Hatfield MUCOUS NONE SEEN Normal NONE SEEN The [facility] Comment on above: Performed By: #### H GBHCT #### [facility] [address] [address] [address] Kayley Hatfield RBC 0-2 Normal 0-2 [facility] Comment on above: Performed By: #### H GBHCT #### [facility] [address] [address] [address] Kayley Hatfield WBC 0-2 Abnormal NONE SEEN [facility] Comment on above: Performed By: #### H GBHCT #### [facility] [address] [place] [address] Dr. Kayley Hatfield XR CHEST 1 Von [...] Date: 2021-12-14 13:43 Normal [facility] BUNon 12-12-2021 Urea nitrogen [Mass/Vol] 15.0 mg/dL Normal 7.0-18.0 [facility] Comment on above: Performed By: #### P RBC #### [facility] [address] [place] [address] Dr. Kayley Hatfield CALCIUMon 12-12-2021 Calcium [Mass/Vol] 9.1 mg/dL Normal 8.5-10.1 [facility] Comment on above: Performed By: #### C VDTBH #### [facility] [address] [place] [address] Dr. Kayley Hatfield CREATININEon 12-12-2021 Creatinine [Mass/Vol] 1.05 mg/dL Critically high 0.55-1.02 [facility] Comment on above: Performed By: #### P RBC #### [facility] [address] [place] [address] Dr. Kayley Hatfield EGFR-AF TUVALUAN >60 Normal >=60 [facility] Comment on above: Performed By: #### P RBC #### [facility] [address] [place] [address] Dr. Kayley Hatfield EGFR-NON AF TUVALUAN 53 mL/min/1.73m2 Critically low >=60 [facility] Comment on above: Performed By: #### P RBC #### [facility] [address] [place] [address] Dr. Kayley Hatfield CRPon 12-12-2021 CRP [Mass/Vol] mg/L Normal <=1.0 [facility] Comment on above: Performed By: #### P RBC #### [facility] [address] [place] [address] Dr. Kayley Hatfield MAGNESIUMon 12-12-2021 Magnesium [Mass/Vol] 1.9 mg/dL Normal 1.8-2.4 [facility] Comment on above: Performed By: #### C VDTBH #### [facility] [address] [place] [address] Dr. Kayley Hatfield PHOSPHORUSon 12-12-2021 Phosphate [Mass/Vol] 4.1 mg/dL Normal 2.6-4.7 [facility] Comment on above: Performed By: #### C VDTBH #### [facility] [address] [place] [address] Dr. Kayley Hatfield SED RATE [place]OERGREN 2021 SED RATE 35 mm/hr Critically high <=30 [facility] Comment on above: Performed By: #### P RTELEC #### [facility] [address] [address] [address] Kayley Hatfield Vital Signs Date Time Vital Sign Value Performing Clinician Faci lity 06-26-2023 15:27-0500 Diastolic blood pressure 103 mm[Hg] MD Erasto Burroughs Work Phone: [facility] 06-26-2023 15:27-0500 Heart rate 81 /min MD Erasto Burroughs Work Phone: [facility] 06-26-2023 15:27-0500 Respiratory rate 18 /min MD Erasto Burroughs Work Phone: [facility] 06-26-2023 15:27-0500 SaO2% (BldA) [Mass fraction] 95 % MD Erasto Burroughs Work Phone: [facility] 06-26-2023 15:27-0500 Systolic blood pressure 162 mm[Hg] MD Erasto Burroughs Work Phone: [facility] 06-26-2023 13:44-0500 Body height 162.56 cm MD Erasto Burroughs Work Phone: [facility] 06-26-2023 13:44-0500 Body weight 59.87 kg MD Erasto Burroughs Work Phone: [facility] 06-26-2023 13:44-0500 Inhaled oxygen flow rate 2 L/min MD Erasto Burroughs Work Phone: [facility] Encounters Encounter Date Encounter Type Care Provider Facility Start: 11-10-2024 ambulatory Ihsan Smiley ty:[facility] Start: 06-07-2024 End: 06-10-2024 Clinisync Result Encounter [...] 05-12-2024 End: 05-12-2024 ambulatory Ihsan Torri BROWN Facility:[facility] Start: 04-29-2024 End: 04-30-2024 Refill Erasto Burroughs MD Work Phone: [facility] Comment on above: DDD (degenerative di sc disease), lumbar Start: 02-21-2024 End: 02-21-2024 ambulatory ERASTO BURROUGHS Not Available Start: 01-07-2024 End: 01-07-2024 ambulatory [facility] Start: 11-09-2023 End: 11-09-2023 ambulatory Ihsanchris BROWN Facility:[facility] Start: 08-18-2023 Refill Erasto Leggett Work Phone: [facility] Comment on above: DDD (degenerative di sc disease), lumbar (Primary Dx) Start: 06-27-2023 ambulatory [facility] Start: 06-26-2023 End: 06-26-2023 ambulatory Remy Givens Facility:[facility] Start: 06-26-2023 End: 06-26-2023 Admission to same day surgery center MD Erasto Burroughs Work Phone: [facility] Work Phone: Start: 06-26-2023 End: 06-26-2023 ambulatory MD Erasto Burroughs Work Phone: [facility] Work Phone: Start: 06-14-2023 End: 06-14-2023 ambulatory SHAIKH RICK Not Available Start: 06-05-2023 Evaluation and management of inpatient KONG BEAULIEU [facility] Start: 06-05-2023 Evaluation and management of inpatient BONITA CRANE [facility] Start: 06-05-2023 Evaluation and management of inpatient BONITA CRANE [facility] Start: 06-04-2023 End: 06-06-2023 Evaluation and management of inpatient AVINASH SERRANO [facility] Start: 05-15-2023 ambulatory Iman Jeter Facility:[facility] Start: 10-31-2022 End: 11-01-[address] ERASTO BURROUGHS Facility:[facility] Start: 10-10-2022 End: 10-11-[address] ERASTO BURROUGHS Facility:[facility] Start: 05-01-2022 End: 05-02-[address] ERASTO BURROUGHS Facility:[facility] Start: 05-01-[address] ERASTO BURROUGHS Facil ity:[facility] Start: 04-25-2022 End: 04-26-[address] ERASTO BURROUGHS Facility:[facility] Start: 04-04-2022 Encounter for genera l adult medical examination without abnormal findings DR ERASTO BURROUGHS [facility] Start: 03-30-[address] ERASTO BURROUGHS Facil ity:[facility] Start: 03-29-2022 Encounter for genera l adult medical examination without abnormal findings DR ERASTO BURROUGHS [facility] Start: 03-28-2022 End: 03-30-2022 Evaluation and management of inpatient DR ERASTO BURROUGHS Facility:[facility] Start: 03-28-2022 End: 03-29-[address] ERASTO BURROUGHS Facility:[facility] Start: 03-28-2022 End: 03-29-2022 Encounter for general adult medical examination without abnormal findings DR ERASTO BURROUGHS Facility:[facility] Start: 03-08-2022 End: 03-15-2022 Evaluation and management of inpatient IMAN WILLIS Facility:[facility] Start: 03-06-2022 End: 03-08-2022 Evaluation and [...] Screening for malign ant neoplasm of colon [facility] Start: 04-15-2026 Glaucoma screening Diabetes: R etinopathy Screening [facility] Start: 09-08-2024 Hemoglobin A1c measurement Diabetes: Hemoglobin A1C [facility] Start: 06-06-2024 Urine screening for protein Diabetes: Urine Protein Screening [facility] Start: 05-27-2024 End: 05-27-2024 Patient encounter procedure 05/27/2024 1:30 PM EST Office Visit [facility] [address] [place] [phone] Erasto Burroughs MD [address] [place] [phone] [facility] Start: 03-09-2024 Influenza vaccination Influenza Vacc ine (#1) [facility] Start: 09-05-2023 Hemoglobin A1c measurement Diabetes: Hemoglobin A1C [facility] Start: 08-27-2023 End: 08-27-2023 Patient encounter procedure 08/27/2023 2:30 PM EST Office Visit [facility] [address] [place] [phone] Erasto Burroughs MD [address] [place] [phone] [facility] Start: 06-26-2023 [facility] Start: 03-09-2023 Influenza vaccination Influenza Vacc ine (#1) [facility] Start: 1997 Screening for malign ant neoplasm of breast Mammogram [facility] Start: 1976 Urine screening for protein Diabetes: Urine Protein Screening [facility] Start: 1967 Glaucoma screening Diabetes: R etinopathy Screening [facility] Start: 1957 Screening for malign ant neoplasm of colon [facility] BLOOD CULTURE 1 BLOOD CULTURE 1 Lab Routine 06/06/2024 10:14 AM EST [facility] BLOOD CULTURE 2 BLOOD CULTURE 2 Lab Routine 06/06/2024 10:21 AM EST [facility] Patient Education Esophageal Dilation [facility] Work Phone: Payers Date Payer Category Payer Medicare [id number] 2023 Self-pay [id number] 2022 Private Health Insurance [facility] [id number] 2022 Unknown [employer] [id number] 2022-Present [phone] [address] [address] [place] [address] [id number] [id number] 2013 Medicare [id number]. [id number] 1959 Medicare [id number] 1959 Unknown [id number] 1959 Unknown [id number] 1957 Unknown [id number] 2.16.840.1.320760.3.579. 2.647 1957 Unknown [id number] 2.16.840.1.239434.3.579. 2.593 1957 Unknown [id number] 2.16.840.1.248210.3.579. 2.593 1957 Unknown [id number] 2.16.840.1.554759.3.579. 2.593 1957 Unknown [id number] 2.16.840.1.998997.3.579. 2.593 1957 Unknown [id number] 2.16.840.1.717001.3.579. 2.593 1957 Unknown [id number] 2.16.840.1.623844.3.579. 2.593 1957 Unknown [id number] 2.16.840.1.031425.3.579. 2.593 1957 Unknown [id number] 2.16.840.1.334286.3.579. 2.593 1957 Unknown [id number] 2.16.840.1.469497.3.579. 2.593 1957 Unknown [id number] 2.16.840.1.235121.3.579. 2.593 1957 Unknown [id number] 2.16.840.1.281049.3.579. 2.593 1957 Unknown [id number] 2.16.840.1.487716.3.579. 2.593 1957 Unknown [id number] 2.16.840.1.661797.3.579. 2.593 1957 Unknown [id number] 2.16.840.1.780731.3.579. 2.1259 1957 Unknown [id number] 2.16.840.1.151760.3.579. 2.1259 1957 Unknown [id number] 2.16.840.1.796768.3.579. 2.727 1957 Unknown [id number] 2.16.840.1.290705.3.579. 2.727 1957 Unknown [id number] 2.16.840.1.242768.3.579. 2.727 1957 Unknown [id number] 2.16.840.1.784113.3.579. 2.727 Unknown [id number] 2.16.840.1.611564.3.579. 2.531 Social History Date Type Detail Facility Start: 06-14-2023 End: 06-26-2023 Tobacco smoking status MDIS Ex-smoker (finding) [facility] Start: 1955 Sex Assigned At Female F [facility] Start: 03-06-1982 End: 03-06-2022 History of tobacco use Current smoker [facility] Start: 03-06-1982 End: 03-06-2022 History of tobacco use Cigarette Smoker [facility] Start: 06-14-2023 End: 02-21-2024 Cigarettes [...] including vitamins, herbs, eye drops, creams, and scvs-ulg-iatqacr medicines. ??? Any problems you or family [...] your provider tells you to. ??? Taking uybz-wce-cznujgj medicines, vitamins, herbs, and supplements. General instructions [...] these instructions at home: Medicines ??? Take utbm-xtf-leszkkl and prescription medicines only as told by [...] to prevent or treat constipation: ? Take quvz-vru-upxxlfa or prescription medicines. ? Eat foods that [...] soft tube (catheter) (more content not included)... [facility] 01-07-2024 [facility] Subjective Lise Canales is a 68 y.o. year old female patient being seen for 6 mo follow up CAD and hypertension. She was admitted to [facility] 2 weeks ago for severe sepsis and [...] Prior additional history: She was admitted to [facility] in 10/2017 with sudden onset [...] smoking. On 06/04/2023 she was admitted to [facility] transferred from the [facility] due to pneumonia. In that setting she was found to have minimally elevated troponin. Her echocardiogram and EKG were nonrevealing. She was discharged on medical therapy. In December 2023 she was admitted to the [facility] with pneumonia and sepsis. In that setting [...] respiratory distress. Breath (more content not included)... [facility] 06-27-2023 Note [facility] Subjective Lise Easton Covert is a 68 y.o. year old female patient being seen for follow up [facility] for NSTEMI. Denies chest pain, LE [...] vertebra(e), initial encounter for fracture (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) Family History Problem Relation Name Age [...] Prior additional history: She was admitted to [facility] in 10/2017 with sudden onset [...] smoking. On 06/04/2023 she was admitted to [facility] transferred from the [facility] due to pneumonia. In that setting she [...] Judgment normal. All (more content not included)... [facility] 06-26-2023 Procedure note [facility] 06-06-2023 Note Hospital Medicine Discharge Summary Final Discharge Diagnosis: Community acquired pneumonia of right lower lobe of lung Admission Diagnosis: NSTEMI (non-ST elevated myocardial infarction) ([facility]) [I21.4] Hospital course: 68 years old female lady with a medical history of hypertension, hyperlipidemia, gastroesophageal reflux disease, carotid disease, fibromyalgia, arthritis, polymyalgia rheumatica, COPD, temporal arteritis, and psoriasis. Came into the [facility] ER as a transfer from [facility] for concern of chest pain and non-STEMI. [...] Center 06/27/2023 3:45 PM Jer Neff MD [facility] Your medication list [...] HYDROcodone-acetaminophen 5-325 mg tablet Commonly known as: [place] melatonin 5 mg tablet metoprolol tartrate 25 [...] Your Medications These medications were sent to [id number] - [place], [place] - [address] [facility] [address] [phone] cefdinir 300 mg capsule doxycycline 100 mg capsule Lise is allergic to azithromycin and latex. Disposition: Home-Health Care [facility] Discharge Condition: Stable Code Status: Prior Diagnostic [...] rhythm. Lungs: C (more content not included)... 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 Yes Does the patient have a immigration case manager assigned to them through their [...] link and activate MyChart? MyChart already active [facility] 06-05-2023 Note . Hospital Medicine History and Physical 06/05/2023 1:22 AM THE HOSPITALIST TEAM PREFERS TO USE [facility] CHAT FOR COMMUNICATION 7AM-7PM. IF I DO NOT RESPOND WITHIN 15 MINUTES, PLEASE PAGE ME/CALL THROUGH THE HR LEADER. FROM 7PM-7AM, PLEASE PAGE [phone](COVR) Chief Complaint No chief complaint on file. History of Present Illness Lise Canales is an 68 y.o. female who came from home with NSTEMi. This is a 68 years old female lady with a medical history of hypertension, hyperlipidemia, gastroesophageal reflux disease, carotid disease, fibromyalgia, arthritis, polymyalgia rheumatica, COPD, temporal arteritis, and psoriasis. Came into the [facility] ER as a transfer from [facility] for concern of chest pain and non-STEMI. [...] NSTEMI (non-ST elevated myocardial infarction) ([facility]) 06/05/2023 Acute on chronic respiratory failure with hypoxia ([facility]) 04/01/2022 Anemia, unspecified 04/01/2022 Recurrent spontaneous pneumothorax 03/30/2022 Giant cell arteritis with polymyalgia rheumatica ([facility]) 10/11/2021 Pneumothorax on left 08/02/2016 Coronary atherosclerosis 06/15/2014 Dyslipidemia 06/15/2014 Status post percutaneous transluminal coronary angioplasty 06/15/2014 Angina pectoris ([facility]) 05/04/2014 Electrocardiogram abnormal 05/04/2014 Abdominal pain 04/24/2014 Altered mental status 04/24/2014 Benign essential hypertension 04/24/2014 Congestive heart failure ([facility]) 04/24/2014 Dyspnea 04/24/2014 Gastroesophageal reflux disease 04/24/2014 History of psychiatric disorder 04/24/2014 Hyperlipidemia 04/24/2014 Headache 04/24/2014 Raynaud's disease 04/24/2014 Other and unspecified noninfectious gastroenteritis and colitis(558.9) 05/15/2007 Candidiasis of mouth 04/17/2007 COPD (chronic obstructive pulmonary disease) ([facility]) 04/17/2007 Diarrhea 04/17/2007 Loss of weight 04/17/2007 Other psoriasis 04/17/2007 Psoriatic arthropathy ([facility]) 04/17/2007 Other pneumothorax 03/30/2022 Assessment and [...] over 92 -Scheduled (more content not included)... [facility] 03-15-2022 Note MR#: [id number] I [facility] Pt. Name: LizztLise Admitted: 03/08/2022 Discharged: 03/15/2022 [...] female, who presented to the [facility] with shortness of breath and fatigue, past [...] The patient was subsequently transferred to for [facility] for further workup, was admitted to [...] [facility] MD Date Trans: 03/15/2022 04:48 P/mmo [id number] cc: Erasto Burroughs M.D. [address] [facility] [address] [facility] 03-13-2022 Note MR#: [id number] I [facility] Pt. Name: Lise Canales Admitted: 03/08/2022 Discharged: [...] Pineda MD Date Trans: 03/13/2022 10:30 A/gabriela [id number] cc: Erasto Burroughs M.D. [address] [facility] [address] [facility] 03-09-2022 Note MR#: [id number] I [facility] Pt. Name: Lise Canales Admitted: 03/05/2020 Discharged: [...] gastritis, Helicobacter pylori infection, who presented to [facility] Emergency Department complaining of sudden onset [...] [facility] [...] appointment with the primary care provider through [facility] for close followup for her anxiety [...] to 4 weeks. Follow up at [facility] on 03/16/2022 at 9:50 a.m. [...] from me. Date Dict: 03/08/2022/03:04 P/Paulette Mccord, [employer]CT [employer] Date Trans: 03/09/2022 11:21 A/mmo [id number] cc: Mrati Poole M.D. [address] [place] [id number] Erasto Burroughs M.D. [address] [facility] [address] [facility] Evaluation note No assessment inform ation available [facility] Work Phone: Evaluation note Diagnosis [...] HealthcareHistory and physical note Author Remy Givens [facility] June 26, 2023 2:44pm Note Date/Time June 26, 2023 2:44pm [facility] [address] [place] [id number] Gastroenterology H&P Signed Patient: Lise Canales MR#: [id number] : 1955 Acct:[id number] Age/Sex: 68 / F Adm Date: 3 Loc: Room: Type: [facility] Attending Dr: Remy Givens MD Copies [...] <Electronically signed by Remy Givens MD> 06/26/23 1443 [facility] Work Phone: Hospital Discharge instructions Additional Instructions [...] problems. -Follow up with PCP. -Office number [phone].[facility] Work Phone: Summary Purpose Family History Relationship Condition Age at Onset Recorded Date/T enrique father Cerebrovascular accident (CVA) Unknown Advance Directives Advance Directive Response Recorded Date/ Time Advance Directives No November 09, 2017 7:38am Chief Complaint and Reason for Visit Chief Complaint Esophageal Dysmotili ty Additional Source Comments INFORMATION SOURCE (unrecogn ized section and content) DATE CREATED AUTHOR 04/11/2022 [facility] DATE CREATED AUTHOR AUTHOR'S ORGANIZ ATION 11/04/2022 [facility] DATE CREATED AUTHOR AUTHOR'S ORGANIZ ATION 07/10/2023 [facility] DATE CREATED AUTHOR AUTHOR'S ORGANIZ ATION 02/14/2024 [facility] DATE CREATED AUTHOR AUTHOR'S ORGANIZ ATION 02/23/2024 [facility] DATE CREATED AUTHOR AUTHOR'S ORGANIZ ATION 05/13/2024 [facility] Care Teams (unrecognized sec tion and content) Team Status: Active Member Role Status Dates Erasto Burroughs MD Primary Care Provider Active Team Status: Inactive Member Role Status Dates Erasto Bruroughs MD Primary Care Provider Active Remy Givens MD Attending Provider Active [employer]umber [employer] Operator Relationship Specialty Start Date End Date Erasto Burroughs MD PCP - General Family Medicine 07/09/22 [employer] Operator Relationship Specialty Start Date End Date Erasto Burroughs MD [address] [place] [phone] PCP - General Family Medicine 02/21/24 [employer] Operator Relationship Specialty Start Date End Date Erasto Burroughs MD [address] [place] [phone] PCP - General Family Medicine 02/21/24 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 [employer] [facility]. provides no warranty or guarantee of the accuracy or completeness of information in this document.
[2024-06-26] MEDS: ACETAMINOPHEN 500 MG TABLET 1000 MG PO (18:27)
[2024-06-26 21:25] LABS: Glucometer 185 mg/dL (74-106)
[2024-06-26] MEDS: INSULIN ASPART 300 UNIT/3 ML PEN SUBQ (21:30)
[2024-06-26] MEDS: METHYLPREDNISOLONE SOD SUCC PF 40 MG/ML VIAL IVP (21:30)
[2024-06-26] MEDS: METOPROLOL TARTRATE 25 MG TABLET 12.5 MG PO (21:31)
[2024-06-26] MEDS: ATORVASTATIN CALCIUM 40 MG TABLET PO (21:31)
[2024-06-26] MEDS: PREGABALIN 100 MG CAPSULE PO (21:31)
[2024-06-26] MEDS: TEMAZEPAM 15 MG CAPSULE PO (22:37)
[2024-06-26] MEDS: BUDESONIDE 0.5 MG/2 ML AMPULE NEB IH (22:59)
[2024-06-27] VITALS (11 sets, daily range): BP systolic 110–140; BP diastolic 69–71; PULSE 75–101; TEMP 36.3–36.8; O2SAT 91–94; BMI 18.6
[2024-06-27] MEDS: DOXYCYCLINE HYCLATE 100 MG in 0.9 % SODIUM CHLORIDE 100 ML IV (03:29)
[2024-06-27] MEDS: METHYLPREDNISOLONE SOD SUCC PF 40 MG/ML VIAL IVP ×2 (03:29→08:00)
[2024-06-27] MEDS: IPRATROPIUM/ALBUTEROL SULFATE 3 ML AMPUL.NEB IH ×2 (05:43→10:44)
[2024-06-27] MEDS: PREGABALIN 100 MG CAPSULE PO (05:51)
[2024-06-27 06:44] LABS: Hematocrit 44.1 % (36.0-48.0); Hemoglobin 14.1 g/dL (12.0-16.0); Mean Corpuscular Hemoglobin 30.5 pg (26.7-34.0); Mean Corpuscular Volume 95.5 fL (81.0-99.0); Mean Platelet Volume 9.3 fL (9.5-13.5); Platelet Count 369 10^3/uL (150-450); Red Blood Count 4.62 10^6/uL (4.20-5.40); Red Cell Distribution Width 12.8 % (11.0-15.0); White Blood Count 8.6 10^3/uL (4.0-11.0)
[2024-06-27 07:12] LABS: Lymphocytes Absolute Manual 0.51 10^3/uL (1.20-3.80); Monocytes Absolute Manual 0.08 10^3/uL (0.30-0.80); Segmented Neut Absolute Manual 7.99 10^3/uL (1.4-6.5)
[2024-06-27 07:42] LABS: Glucometer 233 mg/dL (74-106)
[2024-06-27] MEDS: INSULIN ASPART 300 UNIT/3 ML PEN SUBQ ×2 (07:59→11:39)
[2024-06-27] MEDS: OMEPRAZOLE 40 MG CAPSULE.DR PO (08:00)
[2024-06-27] MEDS: METOPROLOL TARTRATE 25 MG TABLET 12.5 MG PO (09:00)
[2024-06-27] MEDS: ASPIRIN 81 MG TABLET.DR PO (09:00)
[2024-06-27] MEDS: DULOXETINE HCL 30 MG CAPSULE.DR 90 MG PO (09:00)
[2024-06-27] MEDS: FERROUS SULFATE 325 MG TABLET PO (09:00)
--- NOTE | 2024-06-27 10:41 | CM.NOTE ---
Rounds made with Dr. Jung, pt will discharge to home today. Pt denies any needs at discharge. Pt up ad sabrina in room, pt also has home oxygen for HS use.
--- NOTE | 2024-06-27 10:42 | PM.DS1 ---
DS: Providers Provider Date of admission: 06/26/24 18:02 Primary care physician: Erasto Henry MD Admitting clinician: Jazmine Jung Consults: 06/26/24 Consult to Dietitian Routine Reason for consultation: weight loss 06/26/24 15:31 Physical Therapy Eval and Treat Routine Reason for consultation: weakness Has provider been notified: No Discharging clinician: Jazmine Jung DS: Diagnosis Discharge Diagnosis (1) COPD exacerbation: (2) Right lower lobe pneumonia: Qualifiers: Pneumonia type: due to unspecified organism Qualified Code(s): J18.9 - Pneumonia, unspecified organism (3) CKD stage 3b, GFR 30-44 ml/min: (4) History of tobacco abuse: (5) Essential hypertension: (6) Type 2 diabetes mellitus with hyperglycemia: Qualifiers: Diabetes mellitus terminal gauger insulin use: without residential use Qualified Code(s): E11.65 - Type 2 diabetes mellitus with hyperglycemia (7) Hyperlipidemia: Qualifiers: Hyperlipidemia type: mixed hyperlipidemia Qualified Code(s): E78.2 - Mixed hyperlipidemia (8) CAD (coronary artery disease): Qualifiers: Coronary Disease-Associated Artery/Lesion type: menominee artery [place] vs. transplanted heart: menominee heart Associated angina: without angina Qualified Code(s): I25.10 - Atherosclerotic heart disease of menominee coronary artery without angina pectoris (9) Depression: Qualifiers: Depression Type: unspecified Qualified Code(s): F32.A - Depression, unspecified (10) Acid reflux: Qualifiers: Esophagitis presence: esophagitis presence not specified Qualified Code(s): K21.9 - Gastro-esophageal reflux disease without esophagitis DS: Summary Hospital Course Hospital Course: Please see H&P dated 06/26/24. Patient will be discharged on doxycycline 100mg BID x 7 days, prednisone 20mg BID x 7days and PRN Duoneb treatments. She is encouraged to use her OPEP at home, and use her neb treatments q6 hours for the next 2 days, then just as needed. She has close outpatient follow up with her PCP. Please return to the ER with any worsening signs or symptoms. She is saturating well on room air. Labs normal or at baseline. She will be discharged home in stable condition. Status at Discharge Functional status at discharge: independent ambulation Overall status at discharge: patient is back to baseline Time Spent with Patient Time attestation: Total time spent providing and/or coordinating discharge services: Time spent: greater than 30 minutes Exam Narrative Exam Narrative: General: Patient is alert, and oriented to person, place and time with normal affect, proper hygiene Skin: no visible rashes, or ulcers Head: atraumatic, acephalic Eyes: PERRLA, no nystagmus present, conjunctiva clear, no scleral icterus Ears: normal gross auditory acuity Nose: symmetric, no discharge, no maxillary or frontal sinus tenderness Mouth/Throat: no erythema, exudate, or tonsillar enlargement, normal dentition Neck: no masses palpated, normal thyroid, no JVD or audible carotid bruits Heart: Normal rate and rhythm, no murmurs/rubs/gallops Lungs: no audible wheezes, crackles and normal breath sounds all lung conrad Abdomen: Normal audible bowel sounds, no distension, No palpable masses, no organomegaly, no rebound/guarding/ or rigidity Musculoskeletal: no swelling bilateral lower extremities Neuro: CN II-X grossly intact Constitutional Vital Signs, click to edit/add: Last Vital Signs Temp 97.4 F L 06/27/24 07:55 Pulse 87 06/27/24 09:50 Resp 20 06/27/24 07:55 BP 140/71 06/27/24 07:55 Pulse Ox 92 L 06/27/24 07:55 O2 Del Method Room Air 06/27/24 07:55 DS: Data Data Completed and Pending Labs on day of discharge: Labs from last 24 hours 06/27/24 06/27/24 06/26/24 07:39 06:24 21:24 WBC 8.6 RBC 4.62 Hgb 14.1 Hct 44.1 MCV 95.5 MCH 30.5 MCHC 32.0 RDW 12.8 Plt Count 369 MPV 9.3 L Neut % (Auto) Lymph % (Auto) [place] % (Auto) Eos % (Auto) Baso % (Auto) Neut # (Auto) Lymph # (Auto) [place] # (Auto) Eos # (Auto) Baso # (Auto) Abs Immat Gran (auto) Seg Neuts % (Manual) 93.0 H Lymphocytes % (Manual) 6.0 L Monocytes % (Manual) 1.0 L Eosinophils % (Manual) 0.0 L Basophils % (Manual) 0.0 L Imm/Tot Granulo (auto) Neutrophils # (Manual) 7.99 H Lymphocytes # (Manual) 0.51 L Monocytes # (Manual) 0.08 L Eosinophils # (Manual) 0.00 Basophils # (Manual) 0.00 D-Dimer Sodium Potassium Chloride Carbon Dioxide Anion Gap BUN Creatinine Est GFR ( Amer) Est GFR (Non-Af Amer) BUN/Creatinine Ratio Glucose Lactate Calcium Total Bilirubin AST ALT Alkaline Phosphatase Troponin I High Sens Total Protein Albumin Globulin Albumin/Globulin Ratio POC Glucose 233 H 185 H 06/26/24 06/26/24 12:25 12:24 WBC 14.0 H RBC 5.05 Hgb 15.3 Hct 47.9 MCV 94.9 MCH 30.3 MCHC 31.9 RDW 12.8 Plt Count 383 MPV 9.2 L Neut % (Auto) 79.2 H Lymph % (Auto) 9.9 L [place] % (Auto) 8.4 Eos % (Auto) 1.7 Baso % (Auto) 0.4 Neut # (Auto) 11.1 H Lymph # (Auto) 1.4 [place] # (Auto) 1.2 H Eos # (Auto) 0.2 Baso # (Auto) 0.1 Abs Immat Gran (auto) 0.05 H Seg Neuts % (Manual) Lymphocytes % (Manual) Monocytes % (Manual) Eosinophils % (Manual) Basophils % (Manual) Imm/Tot Granulo (auto) 0.4 Neutrophils # (Manual) Lymphocytes # (Manual) Monocytes # (Manual) Eosinophils # (Manual) Basophils # (Manual) D-Dimer 0.23 Sodium 140 Potassium 3.8 Chloride 102 Carbon Dioxide 25.8 Anion Gap 16.0 BUN 20.0 H Creatinine 1.55 H Est GFR ( Amer) 40 L Est GFR (Non-Af Amer) 33 L BUN/Creatinine Ratio 12.9 Glucose 155 H Lactate 1.8 Calcium 10.4 H Total Bilirubin 0.5 AST 19 ALT 31 Alkaline Phosphatase 94 Troponin I High Sens 11.0 Total Protein 7.6 Albumin 3.6 Globulin 4.0 Albumin/Globulin Ratio 0.9 POC Glucose Discharge Plan Discharge Disposition: Home, Self-Care Discharge Medications: New ipratropium-albuterol 0.5 mg-3 mg(2.5 mg base)/3 mL Solution For Nebulization 3 ml inhalation Q6H PRN (Reason: shortness of breath or wheezing) 30 Days Qty: 1 0RF Rx Instructions: please dispense #1 box doxycycline hyclate 100 mg capsule 100 mg PO BID 7 Days Qty: 14 0RF prednisone 20 mg tablet 20 mg PO BID 7 Days Qty: 14 0RF Continued atorvastatin 40 mg tablet 40 mg PO .QHS metoprolol tartrate 25 mg tablet 12.5 mg PO BID omeprazole 40 mg capsule,delayed release(DR/EC) 40 mg PO .BIDAC duloxetine 30 mg capsule,delayed release(DR/EC) 90 mg PO DAILY aspirin 81 mg tablet,delayed release (DR/EC) 81 mg PO DAILY eszopiclone [Lunesta] 3 mg tablet 3 mg PO .QHS PRN (Reason: sleep) melatonin 5 mg tablet 5 mg PO .QHS pregabalin [Lyrica] 100 mg capsule 100 mg PO TID potassium chloride 20 mEq tablet extended release 20 meq PO DAILY PRN (Reason: hypokalemia) ferrous sulfate 325 mg (65 mg iron) tablet 325 mg PO DAILY cranberry 500 mg capsule 500 mg PO DAILY Rx Instructions: administer with a meal cholecalciferol (vitamin D3) 50 mcg (2,000 unit) capsule 50 mcg PO DAILY estradiol 0.01 % (0.1 mg/gram) cream 1 appful VAGINAL .QWK glipizide 5 mg tablet 5 mg PO DAILY albuterol sulfate 90 mcg/actuation HFA aerosol inhaler 2 puff INHALATION Q4H PRN (Reason: shortness of breath or wheezing) guaifenesin 600 mg tablet extended release 12hr 1,200 mg PO BID Activity: increase activity as tolerated and wear oxygen at night Activity Detail: 2L NC Diet: advance to your usual diet Print Language: Icelandic Patient Instructions: COPD (Chronic Obstructive Pulmonary Disease) (DC) Forms: Portal Instructions Follow Up Appointments: Jul.11 @ 11:45am with Dr. Henry [phone]
[2024-06-27] MEDS: BUDESONIDE 0.5 MG/2 ML AMPULE NEB IH (10:44)
--- NOTE | 2024-06-27 10:58 | SWNOTE1 ---
Pt has home oxygen at 2 liters at hs. Pt is not current with home health. SW to review therapy notes. Pt lives at home with , usually independent and has walker if needed.
[2024-06-27 11:19] LABS: Glucometer 258 mg/dL (74-106)
--- NOTE | 2024-06-27 11:20 | SWNOTE1 ---
SW reviewed PT note, no needs up independent in room.
[2024-06-27 13:34] LABS: Alanine Aminotransferase 26 U/L (14-59); Albumin Globulin Ratio 0.9; Albumin Level 3.4 g/dL (3.4-5.0); Alkaline Phosphatase 85 U/L (46-116); Aspartate Amino Transferase 14 U/L (15-37); BUN Creatinine Ratio 14.1; Bilirubin Total 0.3 mg/dL (0.2-1.0); Calcium 9.7 mg/dL (8.5-10.1); Carbon Dioxide 19.2 mmol/L (21.0-32.0); Chloride 102 mmol/L (98-107); Estimated GFR (African America 29 (>=60 mL/min/1.73m^2); Estimated GFR (Non-African Ame 24 (>=60 mL/min/1.73m^2); Globulin 3.7 g/dL; Glucose 229 mg/dL (74-106); Magnesium 1.8 mg/dL (1.8-2.4); Potassium 5.2 mmol/L (3.5-5.1); Sodium 138 mmol/L (136-145); Total Protein 7.1 g/dL (6.4-8.2)
--- NOTE | 2024-06-30 14:03 | CM.DCFOLLOWU ---
06/30- 1st attempt. No answer
--- NOTE | 2024-07-03 13:17 | CM.DCFOLLOWU ---
2nd attempt 07/03/24, no answer
== END 2024-06-27 12:56 | disposition home or self-care (01) ==
LOC: ER 14:29 → MS 18:23
PROVIDERS: Admitting Provider Family Medicine; Emergency Provider Emergency Medicine; PCP Family Medicine; Visit Provider Family Medicine
DX: J44.1 Chronic obstructive pulmonary disease with (acute) exacerbation (principal); J44.0 Chronic obstructive pulmonary disease with (acute) lower respiratory infection; J18.9 Pneumonia, unspecified organism; J96.11 Chronic respiratory failure with hypoxia; Z99.81 Dependence on supplemental oxygen; E11.65 Type 2 diabetes mellitus with hyperglycemia; M35.3 Polymyalgia rheumatica; R63.4 Abnormal weight loss; Z68.1 Body mass index [BMI] 19.9 or less, adult; I25.2 Old myocardial infarction; R53.1 Weakness; E78.2 Mixed hyperlipidemia; K21.9 Gastro-esophageal reflux disease without esophagitis; F32.A Depression, unspecified; I25.10 Atherosclerotic heart disease of native coronary artery without angina pectoris; I12.9 Hypertensive chronic kidney disease with stage 1 through stage 4 chronic kidney disease, or unspecified chronic kidney disease; N18.32 Chronic kidney disease, stage 3b; N35.92 Unspecified urethral stricture, female; Z87.891 Personal history of nicotine dependence; Z79.82 Long term (current) use of aspirin; Z79.899 Other long term (current) drug therapy; Z79.84 Long term (current) use of oral hypoglycemic drugs; Z88.1 Allergy status to other antibiotic agents; Z91.040 Latex allergy status; Z87.01 Personal history of pneumonia (recurrent); Z87.440 Personal history of urinary (tract) infections; Z90.2 Acquired absence of lung [part of]; Z83.6 Family history of other diseases of the respiratory system
CPT/HCPCS: 36415; 71045; 80053; 82948; 83605; 83735; 84484; 85007; 85025; 85027; 85378; 87040; 93005; 94640; 94667; 94668; 94761; 96365; 96366; 96372; 96375; 96376; 99285; G0378; J1650; J2919

== ENCOUNTER 2024-07-07 10:57 | Inpatient (IN) | payer OTHER, MEDICARE, SELFPAY ==
[2024-07-07] VITALS (16 sets, daily range): BP systolic 110–191; BP diastolic 68–100; PULSE 69–120; TEMP 36.6–37.1; O2SAT 83–97; BMI 18.7; BMI 20.5
--- NOTE | 2024-07-07 11:21 | PC.NURSE ---
Complains of pain to right and left flank, reports pain greater on right than left.
--- OUTSIDE RECORDS SUMMARY | 2024-07-07 11:34 | XMS_ITS | CCD ---
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 Role Phone IMAN WILLIS Admitting Unavailable [...] SAMSA ., ISHAN Procedure Practitioner Unavailab le GINGERCHNY ., PA ROSI Consulting Unavailabl e MANJIT, [...] Unavailable Erasto Burroughs MD Primary Care Provider ROSA MARIA, NOORALDIN Referring Unavailable JER NEFF Attending Unavailable JER NEFF Attending Unavailable AVINASH SERRANO Referring Unavailable JAZMIN EASLEY Admitting Unavailable KONG BEAULIEU Attending Unavailable KONG BEAULIEU Referring Unavailable MERZA, NOORALDIN Referring Unavailable MERZA, NOORALDIN Referring Unavailable Erasto Burroughs MD Primary Care Provider [phone] Ihsan BROWN Attending Unavailable Ihsan BROWN Attending Unavailable Ihsan BROWN Attending Unavailable Iman Jeter Attending UnavailERASTO Harmon Attending Unavailable ERASTO BURROUGHS Attending Unavailable Allergies Allergy Classification Reported Allergen(s) Allergy Type Date of Onset Reaction(s) Facility (4 sources) Azithromycin; Translations: [AZITHROMYCIN] Drug Allergy 9 [facility] Repository (5 sources) Latex; Translations: [LATEX] Drug allergy (disorder) 7 [facility] Repository (1 source) Azithromycin Drug Allergy 2 [facility] Repository (1 source) Latex Drug allergy (disorder) 2 [facility] Repository (10 sources) Azithromycin Drug Allergy 3 [facility] (10 sources) Latex Allergy to substance 3 [facility] (1 source) Azithromycin; Translations: [Zithromax] Drug Allergy [facility] Repository Medications Current Medications Medication [...] 2022 11:00pm arginine 500 mg oral tablet (10 sources) Start: 05-17-2023 take 1 tablet by mouth every twelve hours arginine 500 MG tablet Take 1 tablet by mouth every 12 (twelve) hours 05/17/2023 Active aspirin 81 mg delayed release oral tablet (10 sources) Platelet Aggregation Inhibitor, Nonsteroidal Anti-inflammatory Drug Start: 04-06-2022 take 81 mg by mouth once daily Aspirin Active 81 MG PO Daily April 05, 2022 11:00pm atorvastatin 40 mg oral tablet (4 sources) HMG-CoA Reductase Inhibitor Start: 03-17-2024 atorvastatin (Lipitor) 40 MG tablet 03/17/2024 Active Start: 04-06-2022 take 40 mg by mouth once daily at bedtime Atorvastatin Active 40 MG PO Daily at bedtime April 05, 2022 11:00pm cholecalciferol 0.05 mg oral capsule (10 sources) Vitamin D Start: 06-26-2023 End: 06-26-2024 [...] 2022 11:00pm clopidogrel 75 mg oral tablet (10 sources) P2Y12 Platelet Inhibitor Start: 04-06-2022 End: 06-26-2024 take 1 tablet by mouth in the morning clopidogrel (Plavix) 75 MG tablet Take 1 tablet by mouth in the morning. 07/17/2022 06/26/2024 Discontinued DULoxetine 30 mg delayed release oral capsule (11 sources) Serotonin and Norepinephrine Reuptake Inhibitor Start: 04-26-2023 take 3 capsules by mouth in the morning DULoxetine (Cymbalta) [address] capsule Take 3 capsules by mouth in the morning. 04/26/2023 Active Start: 04-06-2022 take 90 mg by mouth once daily Duloxetine Active 90 MG PO Daily April 05, 2022 11:00pm eszopiclone 3 mg oral tablet (11 sources) Start: 04-06-2022 take 1 tablet by mouth at bedtime eszopiclone (Lunesta) 3 MG tablet Take 1 tablet by mouth at bedtime 05/09/2023 Active furosemide 40 mg oral tablet (9 sources) Loop Diuretic Start: 05-30-2023 End: 06-26-2024 take 1 tablet by mouth every twenty-four hours as needed furosemide (Lasix) 40 MG tablet Take 1 tablet by mouth Daily as needed 05/30/2023 06/26/2024 Discontinued glipiZIDE 5 mg oral tablet (8 sources) Sulfonylurea Start: 03-12-2024 take 1 tablet by mouth once daily glipiZIDE (Glucotrol) 5 MG tablet Indications: Type 2 diabetes mellitus with hyperglycemia, without long-term current use of insulin ([facility]) TAKE 1 TABLET(5 MG) BY MOUTH DAILY 90 tablet 3 03/12/2024 Active ipratropium bromide 0.2 mg/ml inhalation solution (10 sources) Anticholinergic ipratropium (Atrovent) 0.02 % nebulizer solution Take 0.5 mg by nebulization every 6 (six) hours Active 200 actuat levalbuterol 0.045 mg/actuat metered dose inhaler (10 sources) beta2-Adrenergic Agonist take 2 puff(s) by inhalation every four hours for wheezing levalbuterol (Xopenex HFA) 45 MCG/ACT inhaler Inhale 2 puffs every 4 (four) hours if needed for wheezing Active melatonin 5 mg oral tablet (1 source) Start: 04-06-2022 take 5 mg by mouth at bedtime Melatonin Active 5 MG PO Bedtime April 05, 2022 11:00pm metoprolol tartrate 25 mg oral tablet (11 sources) beta-Adrenergic Joslyn Start: 06-08-2023 take 0.5 tablet by mouth in the morning metoprolol tartrate (Lopressor) 25 MG tablet Take 0.5 tablets by mouth in the morning and 0.5 tablets before bedtime. 06/08/2023 Active Start: 04-06-2022 take 12.5 mg by mout h every twelve hours Metoprolol Tartrate Active 12.5 MG PO Q12H April 05, 2022 11:00pm omeprazole 40 mg delayed release oral capsule (10 sources) Proton Pump Inhibitor Start: 08-29-2023 End: [...] Active ondansetron 4 mg disintegrating oral tablet (10 sources) Serotonin-3 Receptor Antagonist Start: 03-21-2023 take [...] chloride 20 meq extended release oral tablet (9 sources) Start: 03-31-2024 End: 06-26-2024 take 1 tablet by mouth once daily as needed potassium chloride CR (K-Tab) 20 MEQ ER tablet Indications: Essential hypertension, benign (CMS/HCC) TAKE 1 TABLET BY MOUTH DAILY NEEDED 30 tablet 3 03/31/2024 06/26/2024 Discontinued Start: 05-30-2023 take 1 tablet by shayna every twenty-four hours as needed potassium chloride CR (K-Tab) 20 MEQ ER tablet Take 1 tablet by mouth Daily as needed 05/30/2023 Active predniSONE 10 mg oral tablet (1 source) Start: 04-06-2022 take 10 mg by mouth once daily Prednisone Active 10 MG PO Daily April 05, 2022 11:00pm pregabalin 100 mg oral capsule (12 sources) Start: 10-16-2023 End: 04-30-2024 take 1 [...] Chronic Chronic obstructive pulmonary disease and bronchiectasis (20 sources) Chronic obstructive pulmonary disease, unspecified; Translations: [Emphysema, unspecified] Onset: 12-18-2021 08-27-2023 Chronic Coronary atherosclerosis and other heart disease (13 sources) 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; Translations: [Coronary occlusion] Onset: 03-08-2022 Chronic Coronary atherosclerosis and other heart disease (2 sources) Presence of coronary angioplasty implant and graft; Translations: [Presence of coronary angioplasty implant and graft] Onset: 01-07-2024 Episodic Deficiency and other anemia (1 source) Iron deficiency anemia, unspecified; Translations: [IRON DEFICIENCY ANEMIA, UNSPECIFIED] Onset: 03-08-2022 Episodic Diabetes mellitus with complications (11 sources) Type 2 diabetes mellitus with hyperglycemia; Translations: [Hyperglycemia due to type 2 diabetes mellitus] Onset: 03-16-2022 08-27-2023 Chronic Diabetes mellitus without complication (1 source) Type 2 diabetes mellitus without complications; Translations: [TYPE 2 DM WITHOUT COMPLICATIONS] Onset: 05-01-2022 Chronic Diabetes mellitus without complication (1 source) Hyperglycemia, unspecified; Translations: [HYPERGLYCEMIA, UNSPECIFIED] Onset: 03-08-2022 Episodic Disorders of lipid metabolism (10 sources) Pure hypercholesterolemia, unspecified; Translations: [Dyslipidemia] Onset: 05-01-2022 08-27-2023 Chronic Esophageal disorders (18 sources) Esophageal dysmotility; Translations: [Dyskinesia of esophagus] Onset: 08-27-2023 08-27-2023 Chronic Essential hypertension (13 sources) Essential (primary) hypertension; Translations: [Benign essential hypertension] Onset: 03-08-2022 Chronic Fever of unknown origin (5 sources) Fever; Translations: [Fever, unspecified] Onset: 06-26-2024 06-26-2024 Episodic Fluid and electrolyte disorders (16 sources) Dehydration; Translations: [Hyponatremia] Onset: 12-18-2021 06-14-2023 Episodic Mood disorders (1 source) Major depressive disorder, single episode, unspecified; Translations: [ANDRES DEPRESS D/O SINGLE EPIS UNS] Onset: 05-01-2022 Chronic Mood disorders (1 source) Mood disorders; Translations: [DEPRESSION, UNSPECIFIED] Onset: 03-08-2022 Noninfectious gastroenteritis (9 sources) Collagenous colitis; Translations: [Collagenous colitis] Onset: 08-27-2023 08-27-2023 Chronic Nutritional deficiencies (10 sources) Vitamin D deficiency, unspecified; Translations: [Vitamin D deficiency] Onset: 03-29-2022 08-27-2023 Chronic Osteoarthritis (4 sources) Primary generalized (osteo)arthritis; Translations: [PRIMARY GENERALIZED OSTEOARTHRITIS] Onset: 10-10-2022 Chronic Osteoporosis (14 sources) Age-related osteoporosis without current pathological fracture; Translations: [Senile osteoporosis] Onset: 12-22-2021 Chronic Other aftercare (5 sources) Other skilled nursing (current) drug therapy; Translations: [OTH DETENTION CURRENT DRUG THERAPY] Onset: 05-01-2022 Episodic Other circulatory disease (1 source) Raynaud's syndrome without gangrene; Translations: [RAYNAUDS SYNDROME WITHOUT GANGRENE] Onset: 12-18-2021 Chronic Other circulatory disease (2 sources) Other hypotension; Translations: [Other hypotension] Onset: 01-07-2024 Episodic Other connective tissue disease (2 sources) Polymyalgia rheumatica; Translations: [POLYMYALGIA RHEUMATICA] Onset: 03-08-2022 Chronic Other connective tissue disease (9 sources) Polymyalgia rheumatica; Translations: [Polymyalgia rheumatica] Onset: 08-27-2023 08-27-2023 Chronic Other gastrointestinal disorders (1 source) Dysphagia, unspecified; Translations: [Dysphagia, unspecified] Onset: 06-26-2023 Episodic Other lower respiratory disease (4 sources) Other nonspecific abnormal finding of lung field; Translations: [OTH NONSPECIFIC ABN FIND LNG FIELD] Onset: 10-31-2022 Episodic Other nervous system disorders (9 sources) Thoracic outlet syndrome; Translations: [Brachial plexus [...] blood chemistry] Onset: 01-07-2024 Episodic Personality disorders (9 sources) Chronic depression; Translations: [Chronic depressive disorder] Onset: 08-27-2023 08-27-2023 Chronic Respiratory failure; insufficiency; arrest (adult) (11 sources) Chronic respiratory failure with hypoxia; Translations: [...] [OTHER IRON DEFICIENCY ANEMIAS] Onset: 05-01-2022 Episodic Genitourinary symptoms and ill-defined conditions (9 sources) Dysuria; Translations: [Dysuria] Onset: 08-27-2023 Resolved: 02-21-2024 02-21-2024 Episodic Nutritional deficiencies (1 source) Cachexia; Translations: [CACHEXIA] Onset: 04-04-2022 Episodic Other aftercare (1 source) 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; Translations: [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 CHAIN 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 CURRENT USE OF ASPIRIN] Onset: 05-01-2022 Episodic Other aftercare (1 source) [facility] (current) use of antithrombotics/ant iplatelets; Translations: [GREEN CHAIN MARKER ANTITHROMBOT/ANTIPL ATLETS] Onset: 03-16-2022 Episodic Other aftercare (10 sources) Post-discharge follow-up; Translations: [Encounter for follow-up examination after completed treatment for conditions other than malignant neoplasm] Onset: 06-14-2023 Resolved: 06-26-2024 06-14-2023 Episodic Other circulatory disease (4 sources) Hypotension, unspecified; Translations: [HYPOTENSION UNSPECIFIED] Onset: 12-14-2021 Episodic Other connective tissue disease (1 source) Fibromyalgia; Translations: [FIBROMYALGIA] Onset: 04-04-2022 Episodic Other connective tissue disease (9 sources) Fibromyalgia; Translations: [Fibromyalgia] Onset: 08-27-2023 08-27-2023 Episodic Other injuries and conditions due to external causes (1 source) History of falling; Translations: [HISTORY OF FALLING] Onset: 03-16-2022 Episodic Other lower respiratory disease (3 sources) Shortness of breath; Translations: [SHORTNESS OF BREATH] Onset: 04-25-2022 Episodic Other nervous system disorders (9 sources) Paresthesia; Translations: [Paresthesia of skin] Onset: 08-27-2023 08-27-2023 Episodic Other nutritional; endocrine; and metabolic disorders (1 source) Body mass index (BMI) 19.9 or less, adult; Translations: [BODY MASS INDEX 19.9 OR LESS ADULT] Onset: 04-04-2022 Episodic Pleurisy; pneumothorax; pulmonary collapse (20 sources) Spontaneous pneumothorax; Translations: [Spontaneous tension pneumothorax] Onset: 03-06-2022 Resolved: 02-21-2024 Episodic Pneumonia (except that caused by tuberculosis or sexually transmitted disease) (3 sources) Pneumonia, unspecified organism; Translations: [PNEUMONIA UNSPECIFIED ORGANISM] Onset: 05-01-2022 Episodic Residual codes; unclassified (9 sources) Bilateral lower limb edema; Translations: [Localized edema] Onset: 08-27-2023 08-27-2023 Episodic Respiratory failure; insufficiency; arrest (adult) (2 sources) Acute respiratory failure with hypoxia; Translations: [ACUTE RESPIRATORY FAILURE WITH HYPOXIA] Onset: 03-08-2022 Episodic Screening and history of mental health and substance abuse codes (1 source) Personal history of nicotine dependence; Translations: [PERSONAL HISTORY OF NICOTINE DEPEND] Onset: 05-01-2022 Episodic Urinary tract infections (9 sources) Pyelonephritis; Translations: [Tubulo-interstitia l nephritis, not specified as acute or chronic] Onset: 02-21-2024 02-21-2024 Episodic Results Test Name Value Interpretation Reference Range Facility URINE CULTURE, ROUTINEon Bacteria identified Cx Nom (U) Urine Culture, Routine [facility] Bacteria identified Cx Nom (U) No growth [facility] Bacteria identified Cx Nom (U) Performed at: [facility] Bacteria identified Cx Nom (U) [address] [place] [id number] [place] [address] Bacteria identified Cx Nom (U) Compliance Specialist: Deejay Cortez PhD, Phone: [phone] [facility] Ambulatory Visit Summaryon 1 07-12-2023 Ambulatory Visit [...] Ihsan BROWN MD Where: [facility] [address] [place] [address]- You Need to Schedule the Following Appointments Follow Up with Ihsan BROWN MD, URL When: Where: [facility] [address], [place] [address]- Medications What How Much When Instructions New cephalexin (Keflex 500 mg Cap) 1 Capsules By Mouth Every 12 hours Duration: 10 Days Pickup at [facility] #[id number] Changed estradiol topical (estradiol 0.1 mg/ g Vag Crm) 1 Gram Vaginal As Directed Plunge 1 gm vaginally then apply excess cream around the urethra once a week at night. Pickup at [facility] #[id number] Unchanged albuterol (Albuterol (Eqv-Proventil HFA) 90 mcg/ [...] physician if questions or concerns Pharmacy Information [facility] #[id number]: [address] [place], [place] [phone] Allergies Latex (RASH) Zithromax (HIVES) Problems Ongoing [...] The urethra (more content not included)... Normal [facility] Urology Office/Clinic Noteon 05-12-2024 Urology [...] x 10 days. SEs discussed. [facility] unable to send urine for culture today due to no transport. -Restart Estradiol cream. Use 1x/week. Notify office if experiencing SEs. Sent to [facility]. 3. Asymptomatic microscopic hematuria (R31.21: Asymptomatic microscopic hematuria) Chronic. [2] Follow-up With When Contact Information KEVIN SALDIVAR, Ihsan Wild, URL [facility] [address], [place] [address]- Additional Instructions: 6 mos for UD Patient [...] 6 refills GUAIFE (more content not included)... [facility] Comment on above: Result Comment: Elec tronically Signed By: Ihsan BROWN MD\.br\Date and Time Signed: 05/12/24 17:00 EST\.br\Electronically Co-Signed By: Katarina Bose\.br\Date and Time Co-Signed: 05/12/24 16:58 EST MLR HEMOGLOBIN A1Con 024 Glucose [Mass/Vol] 192 mg/dL [facility] HbA1c (Bld) [Mass fraction] 8.3 % High 4.5 - 6.2 % [facility] Comment on above: ADA RECOMMENDED LIMI T 4.0 - 6.0 ADA THERAPEUTIC TARGET < 7.0 ACTION SUGGESTED > 7.0 Interpretation and review of laboratory results Abnormal [facility] 36on 02-12-2024 36 Tried to contact patient again. She has no VM. [facility] 36on 01-29-2024 36 Regarding lab result s from 01/07/2024: MD Kika Becerra MA Blood work is ok, follow up as planned in 6 months. Tried to contact patient but no VM. Will try again tomorrow. [facility] Office Visiton 01-07-2024 Follow-up visit [id number] Covert,Lise Rustam 1955 F Date Provider Department Center 01/07/2024 JER LARRY CARD [facility] Family History Problem Relation Age of Onset Stroke Father Stroke Father's Sister Coronary artery disease Paternal Grandmother Family Status - Relation Status Age at Father Father's Sister Paternal Grandmother Level of Service:[id number] MD OFFICE/OUTPATIENT ESTABLISHED MOD MDM 30 MIN [facility] Consent for Procedure/Surger yon 11-12-2023 Consent for Procedure/Surgery [id number] [facility] Patient Educationon 11-09-19 Patient Education Urology Urethral [...] including vitamins, herbs, eye drops, creams, and tzyo-ece-rftjwvm medicines. ? Any problems you or family [...] tells you to take them. ? Taking qtje-wpo-kdulpkd medicines, vitamins, herbs, and supplements. General instructions [...] these instructions at home: Medicines ? Take laim-hbg-etobotd and prescription medicines only as told by [...] to prevent or treat constipation: ? Take rjuj-luf-qjbgewu or prescription medicines. ? Eat foods that [...] You pa (more content not included)... Normal [facility] Urology Office/Clinic Noteon 11-09-2023 Urology [...] Tight The Urethra was dilated to: 20-32 [place] with sounds. Specimens Removed: None Postoperative Information [...] When Contact Information KEVIN SALDIVAR, Ihsan Wild, [address] [address]- Additional Instructions: 6 mos w/ IO UD [...] Vitamin D3 (more content not included)... Normal [facility] Comment on above: Result Comment: Elec tronically Signed By: Ihsan BROWN MD\.br\Date and Time Signed: 11/09/23 12:24 EDT\.br\Electronically Co-Signed By: Amanda Camara\.br\Date and Time Co-Signed: 11/09/23 12:14 EDT 36on 09-03-2023 36 Home health informed and script sent [facility] Orders Onlyon 08-30-2023 Orders Only [id number] Covert,Lise Easton 1955 F Date Provider Department Center 08/30/2023 RUSH HENNESSY MARC [facility] Family History Problem Relation Age of Onset Stroke Father Stroke Father's Sister Coronary artery disease Paternal Grandmother Family Status - Relation Status Age at Father Father's Sister Paternal Grandmother [facility] Office Visiton 06-27-2023 Follow-up visit [id number] Covert,Lise Easton 1955 Date Provider Department Center 06/27/2023 JER LARRY MARC [facility] Family History Problem Relation Age of Onset Stroke Father Stroke Father's Sister Coronary artery disease Paternal Grandmother Family Status - Relation Status Age at Father Father's Sister Paternal Grandmother Level of Service:[id number] MD OFFICE/OUTPATIENT ESTABLISHED LOW MDM 20 MIN [facility] 30on 06-06-2023 30 The patient is Moderately Stable - Low risk of patient condition declining or worsening The patient's goals for the shift include comfort The clinical goals for the shift include stable VS Problem: Safety - Adult Goal: Free from fall injury Outcome: Adequate for Discharge Flowsheets (Taken 06/06/2023799) Free from fall injury: Assess patient frequently [...] symptoms for stability, deterioration, or improvement Normal [facility] BASIC METABOLIC PANELon 11-2 Anion gap [Moles/Vol] 9 mmol/L Normal 7-20 [facility] Comment on above: Performed By: #### L [id number] #### [facility] (BEAKER) [address] [place] [address] Calcium [Mass/Vol] 8.3 mg/dL Low 8.6-10.3 [facility] Comment on above: Performed By: #### L [id number] #### [facility] (BEAKER) [address] [place] [address] Chloride [Moles/Vol] 99 mmol/L Normal 98-107 [facility] Comment on above: Performed By: #### L [id number] #### [facility] ([facility] [address] [place] [address] CO2 [Moles/Vol] 26 mmol/L Normal 21-31 [facility] Comment on above: Performed By: #### L [id number] #### [facility] ([facility]) [address] [place] [address] Creatinine [Mass/Vol] 0.72 mg/dL Normal 0.60-1.20 [facility] Comment on above: Performed By: #### L [id number] #### [facility] ([facility]) [address] [place] [address] GLOMERULAR FILTRATION RATE ML/MIN/1.73 SQ M.PREDICTED 92.2 mL/min/1.73m*2 Normal >60.0 [facility] Comment on above: Result Comment: [facility]???s estimated glomerular filtration rate (eGFR) will no [...] individuals. Performed By: #### L [id number] #### [facility] ([facility]) [address] [place] [address] Glucose [Mass/Vol] 107 mg/dL High 70-100 [facility] Comment on above: Performed By: #### L [id number] #### [facility] ([facility]) [address] [place] [address] Potassium [Moles/Vol] 3.9 mmol/L Normal 3.5-5.1 [facility] Comment on above: Performed By: #### L [id number] #### [facility] ([facility]) [address] [place] [address] Sodium [Moles/Vol] 130 mmol/L Low 136-145 [facility] Comment on above: Performed By: #### L [id number] #### [facility] ([facility]) [address] [place] [address] Urea nitrogen [Mass/Vol] 12 mg/dL Normal 7-25 [facility] Comment on above: Performed By: #### L [id number] #### [facility] ([facility]) [address] [place] [address] UREA NITROGEN/CREATININE (MASS RATIO) IN SER/PLAS 16.7 Normal [facility] Comment on above: Performed By: #### L [id number] #### [facility] ([facility]) [address] [place] [address] CBCon 06-06-2023 Erythrocyte distribution width (RBC) [Ratio] 13.4 % Normal 11.5-15.0 [facility] Comment on above: Performed By: #### L [id number] #### [facility] ([facility]) [address] [place] [address] ERYTHROCYTE MEAN CORPUSCULAR HEMOGLOBIN CONCENTRATION (G/DL) BY AUTOMATED 33.4 g/dL Normal 32.0-35.0 [facility] Comment on above: Performed By: #### L [id number] #### [facility] ([facility]) [address] [place] [address] Hematocrit (Bld) [Volume fraction] 28.7 % Low 36.0-48.0 [facility] Comment on above: Performed By: #### L [id number] #### [facility] ([facility]) [address] [place] [address] Hemoglobin (Bld) [Mass/Vol] 9.6 g/dL Low 12.0-15.0 [facility] Comment on above: Performed By: #### L [id number] #### [facility] ([facility]) [address] [place] [address] MCH (RBC) [Entitic mass] 28.2 pg Normal 27.0-33.0 [facility] Comment on above: Performed By: #### L [id number] #### [facility] ([facility]) [address] [place] [address] MCV (RBC) [Entitic vol] 84.4 fL Normal 82.0-98.0 [facility] Comment on above: Performed By: #### L [id number] #### [facility] ([facility]) [address] [address] PLATELETS (10*3/UL) IN BLOOD AUTOMATED COUNT 522 10*3/uL High 150-400 [facility] Comment on above: Performed By: #### L [id number] #### [facility] ([facility]) [address] [place] [address] RBC (Bld) [#/Vol] 3.40 10*6/uL Low 3.80-5.00 [facility] [facility] Comment on above: Performed By: #### L [id number] #### [facility] ([facility]) [address] [place] [address] WBC (Bld) [#/Vol] 10.31 10*3/uL Normal 4.00-10.60 [facility] Comment on above: Performed By: #### L [id number] #### [facility] ([facility]) [address] [place] [place] [address] Letter (Out)on 06-06-2023 Letter (Out) [id number] Covert,Lsie Easton 1955 F Date Provider Department Center 06/06/2023 [id number], GENERIC PRO*INIT None Family History Problem Relation Age of Onset Stroke Father Stroke Father's Sister Coronary artery disease Paternal Grandmother Family Status - Relation Status Age at Father Father's Sister Paternal Grandmother Normal [facility] MAGNESIUMon 06-06-2023 Magnesium [Mass/Vol] 1.9 mg/dL Normal 1.9-2.7 [facility] Comment on above: Performed By: #### L [id number] #### [facility] ([facility]) [address] [place] [place] [address] 30on 06-05-2023 30 The patient is Moderately Stable - Low risk of patient condition declining or worsening The patient's goals for the shift include comfort The clinical goals for the shift include stable vitals Normal [facility] 30 Daily Case Managemen t Update Multidisciplinary rounds have been completed. Barriers to Discharge: Transfer from [place] for chest pain and NSTEMI. TTE ordered. Pending cardio rec. Trop was .06 down to .04. +UTI and Pneumonia. Continue IV Rocephin. Urine and blood cultures pending. Patient is from home with [facility] and 2L home 02 Diet: Dietary [...] your name here: DANIEL GUERIN 06/05/23 1508 [facility] 30 The patient is Moderately Unstable - Medium risk of patient condition declining or worsening The patient's goals for the shift include comfort The clinical goals for the shift include vss Over the shift, the patient did not make progress toward the following goals. Barriers to progression include . Recommendations to address these barriers include . [facility] 30 The patient is Moderately Stable - Low risk of patient condition declining or worsening The patient's goals for the shift include comfort The clinical goals for the shift include vss Problem: Pain - Adult Goal: Verbalizes/displays adequate comfort level or baseline comfort level Outcome: Progressing Flowsheets (Taken 06/05/2023 0048) Verbalizes/displays adequate comfort level or baseline comfort [...] injury: Assess patient frequently for physical needs [place] fall precautions as indicated by assessment Identify [...] and prevent overall improvement and discharge Normal [facility] ANTI-XA (HEPARIN LEVEL)on HEPARIN UNFRACTIONATED (U/ML) IN PPP BY CHROMOGENIC METHOD <0.10 Invalid Interpretation Code 0.3-0.7 [facility] Comment on above: Order Comment: Check anti-Xa level every 6 hours while on heparin infusion, or per protocol. Result Comment: [place] roxaban and Apixaban will interfere with the anti Xa assay used to monitor UFH and LMWH. Performed By: #### L [id number] #### [facility] [address] [place] [address] HEPARIN UNFRACTIONATED (U/ML) IN PPP BY CHROMOGENIC METHOD <0.10 Invalid Interpretation Code 0.3-0.7 [facility] Comment on above: Order Comment: Check anti-Xa level every 6 hours while on heparin infusion, or per protocol. Result Comment: [place] roxaban and Apixaban will interfere with the anti Xa assay used to monitor UFH and LMWH. Performed By: #### L [id number] #### [facility] ([facility]) [address] [place] [address] APTTon 06-05-2023 ACTIVATED PARTIAL THROMBOPLASTIN TIME IN PPP BY COAGULATION ASSAY 38.8 Seconds High 25.0-35.0 [facility] Comment on above: Result Comment: Clin ical significance of the APTT is questionable in the presence of heparin. Performed By: #### L [id number] #### [facility] ([facility]) [address] [place] [address] B-TYPE NATRIURETIC PEPTIDEon 06-05-2023 Natriuretic peptide B (Bld) [Mass/Vol] 136 pg/mL High 0-100 [facility] Comment on above: Performed By: #### L [id number] #### [facility] ([facility]) [address] [place] [address] BLOOD CULTUREon 06-05-2023 Bacteria identified Cx Nom (Bld) No growth at 5 days Normal [facility] Comment on above: Performed By: #### L [id number] ####[facility] ([facility])[address] [place] [address] Order Comment: From a different site than #1. CBC WITH AUTO DIFFERENTIALon 06-05-2023 Basophils (Bld) [#/Vol] 0.05 10*3/uL Normal 0.00-0.20 [facility] Comment on above: Performed By: #### L [id number] #### [facility] ([facility]) [address] [place] [address] Basophils/100 WBC (Bld) 0.3 % Normal 0.0-1.0 [facility] Comment on above: Performed By: #### L [id number] #### [facility] ([facility]) [address] [place] [address] Eosinophils (Bld) [#/Vol] 0.02 10*3/uL Normal 0.00-0.50 [facility] Comment on above: Performed By: #### L [id number] #### [facility] ([facility]) [address] [place] [address] Eosinophils/100 WBC (Bld) 0.1 % Normal 0.0-6.0 [facility] Comment on above: Performed By: #### L [id number] #### [facility] ([facility]) [address] [place] [address] Erythrocyte distribution width (RBC) [Ratio] 13.3 % Normal 11.5-15.0 [facility] Comment on above: Performed By: #### L [id number] #### [facility] ([facility]) [address] [place] [address] ERYTHROCYTE MEAN CORPUSCULAR HEMOGLOBIN CONCENTRATION (G/DL) BY AUTOMATED 32.4 g/dL Normal 32.0-35.0 [facility] Comment on above: Performed By: #### L [id number] #### [facility] ([facility]) [address] [place] [address] Hematocrit (Bld) [Volume fraction] 35.8 % Low 36.0-48.0 [facility] Comment on above: Performed By: #### L [id number] #### [facility] ([facility]) [address] [place] [address] Hemoglobin (Bld) [Mass/Vol] 11.6 g/dL Low 12.0-15.0 [facility] Comment on above: Performed By: #### L [id number] #### [facility] ([facility]) [address] [place] [address] Immature granulocytes (Bld) [#/Vol] 0.17 10*3/uL Normal 0.00-0.20 [facility] Comment on above: Performed By: #### L [id number] #### [facility] ([facility]) [address] [place] [address] Immature granulocytes/100 WBC (Bld) 1.0 % Normal 0.0-1.0 [facility] Comment on above: Performed By: #### L [id number] #### [facility] ([facility]) [address] [place] [address] Lymphocytes (Bld) [#/Vol] 0.80 10*3/uL Low 1.20-4.00 [facility] Comment on above: Performed By: #### L [id number] #### [facility] ([facility]) [address] [place] [address] Lymphocytes/100 WBC (Bld) 4.6 % Low 20.0-45.0 [facility] Comment on above: Performed By: #### L [id number] #### [facility] ([facility]) [address] [place] [address] MCH (RBC) [Entitic mass] 28.3 pg Normal 27.0-33.0 [facility] Comment on above: Performed By: #### L [id number] #### [facility] ([facility]) [address] [place] [address] MCV (RBC) [Entitic vol] 87.3 fL Normal 82.0-98.0 [facility] Comment on above: Performed By: #### L [id number] #### [facility] ([facility]) [address] [place] [place] [address] Monocytes (Bld) [#/Vol] 0.78 10*3/uL Normal 0.10-1.00 [facility] Comment on above: Performed By: #### L [id number] #### [facility] ([facility]) [address] [place] [address] Monocytes/100 WBC (Bld) 4.5 % Low 5.0-12.0 [facility] Comment on above: Performed By: #### L [id number] #### [facility] ([facility]) [address] [place] [address] Neutrophils (Bld) [#/Vol] 15.46 10*3/uL High 1.60-7.60 [facility] Comment on above: Performed By: #### L [id number] #### [facility] ([facility]) [address] [place] [place] [address] Neutrophils/100 WBC (Bld) 89.5 % High 40.0-72.0 [facility] Comment on above: Performed By: #### L [id number] #### [facility] ([facility]) [address] [place] [address] NRBC (PER 100 WBCS) BY AUTOMATED COUNT 0.0 % Normal 0 [facility] Comment on above: Performed By: #### L [id number] #### [facility] ([facility]) [address] [place] [address] PLATELETS (10*3/UL) IN BLOOD AUTOMATED COUNT 517 10*3/uL High 150-400 [facility] Comment on above: Performed By: #### L [id number] #### [facility] ([facility]) [address] [place] [address] RBC (Bld) [#/Vol] 4.10 10*6/uL Normal 3.80-5.00 [facility] Comment on above: Performed By: #### L [id number] #### [facility] ([facility]) [address] [place] [address] WBC (Bld) [#/Vol] 17.28 10*3/uL High 4.00-10.60 [facility] Comment on above: Performed By: #### L [id number] #### [facility] ([facility]) [address] [place] [address] COMPREHENSIVE METABOLIC PANE [place] 06-05-2023 ALANINE AMINOTRANSFERASE (SGPT) (U/L) IN SER/PLAS <3 Low 7-52 [facility] Comment on above: Performed By: #### L [id number] #### [facility] ([facility]) [address] [place] [address] Albumin [Mass/Vol] 3.1 g/dL Low 3.5-5.7 [facility] Comment on above: Performed By: #### L [id number] #### [facility] ([facility]) [address] [place] [address] ALP [Catalytic activity/Vol] 83 U/L Normal 34-104 [facility] Comment on above: Performed By: #### L [id number] #### [facility] ([facility]) [address] [place] [address] Anion gap [Moles/Vol] 13 mmol/L Normal 7-20 [facility] Comment on above: Performed By: #### L [id number] #### [facility] ([facility]) [address] [place] [address] AST [Catalytic activity/Vol] 14 U/L Normal 13-39 [facility] Comment on above: Performed By: #### L [id number] #### [facility] ([facility]) [address] [place] [address] Bilirubin [Mass/Vol] 0.3 mg/dL Normal 0.3-1.0 [facility] Comment on above: Performed By: #### L [id number] #### [facility] ([facility]) [address] [place] [address] Calcium [Mass/Vol] 8.9 mg/dL Normal 8.6-10.3 [facility] Comment on above: Performed By: #### L [id number] #### [facility] ([facility]) [address] [place] [address] Chloride [Moles/Vol] 98 mmol/L Normal 98-107 [facility] Comment on above: Performed By: #### L [id number] #### [facility] ([facility]) [address] [place] [address] CO2 [Moles/Vol] 25 mmol/L Normal 21-31 [facility] Comment on above: Performed By: #### L [id number] #### [facility] ([facility]) [address] [place] [address] Creatinine [Mass/Vol] 0.96 mg/dL Normal 0.60-1.20 [facility] Comment on above: Performed By: #### L [id number] #### [facility] ([facility]) [address] [place] [address] GLOMERULAR FILTRATION RATE ML/MIN/1.73 SQ M.PREDICTED 65.3 mL/min/1.73m*2 Normal >60.0 [facility] Comment on above: Result Comment: [facility]???s estimated glomerular filtration rate (eGFR) will no [...] individuals. Performed By: #### L [id number] #### [facility] ([facility]) [address] [place] [address] Glucose [Mass/Vol] 93 mg/dL Normal 70-100 [facility] Comment on above: Performed By: #### L [id number] #### [facility] ([facility]) [address] [place] [address] Potassium [Moles/Vol] 3.3 mmol/L Low 3.5-5.1 [facility] Comment on above: Performed By: #### L [id number] #### [facility] ([facility]) [address] [place] [address] Protein [Mass/Vol] 5.7 g/dL Low 6.0-8.3 [facility] Comment on above: Performed By: #### L [id number] #### [facility] ([facility]) [address] [place] [address] Sodium [Moles/Vol] 133 mmol/L Low 136-145 [facility] Comment on above: Performed By: #### L [id number] #### [facility] ([facility]) [address] [place] [place] [address] Urea nitrogen [Mass/Vol] 12 mg/dL Normal 7-25 [facility] Comment on above: Performed By: #### L [id number] #### [facility] ([facility]) [address] [place] [address] UREA NITROGEN/CREATININE (MASS RATIO) IN SER/PLAS 12.5 Normal [facility] Comment on above: Performed By: #### L [id number] #### [facility] ([facility]) [address] [place] [address] CONSULTon 06-05-2023 CONSULT - Attestation signed by [...] Nausea / Vomiting and Urinary symptoms to [facility], there she was found to have UTI, labs showed WBC of 17 and she was started on IV antibiotics, work up also showed high sensitive troponin of 62, She doesn't report any chest pain, or discomfort. She was started on heparin drip and [facility]. Today she reports no chest pain or [...] bilaterally. NEURO: (more content not included)... Normal [facility] ETHANOLon 06-05-2023 ETHANOL (MG/DL) IN SER/PLAS <10 Normal [facility] Comment on above: Performed By: #### L [id number] #### [facility] ([facility]) [address] [place] [address] ETHANOL CALCULATED (%) Normal [facility] Comment on above: Performed By: #### L [id number] #### [facility] ([facility]) [address] [place] [address] HEMOGLOBIN A1Con 06-05-2023 Glucose [Mass/Vol] 160 mg/dL Normal [facility] Comment on above: Performed By: #### L [id number] ####[facility] ([facility])[address] [place] [address] HbA1c (Bld) [Mass fraction] 7.2 % High 4.0-6.0 [facility] Comment on above: Performed By: #### L [id number] ####[facility] ([facility])[address] [place] [address] LACTIC ACID WITH 4 HOUR REFL EXon 06-05-2023 LACTATE (MMOL/L) IN SER/PLAS 1.1 mmol/L Normal 0.5-2.2 [facility] Comment on above: Performed By: #### L [id number] #### [facility] ([facility]) [address] [place] [address] LEGIONELLA ANTIGEN, URINEon 06-05-2023 LEGIONELLA AG, UR Negative Normal NEG [facility] Comment on above: Result Comment: L. p neumophila serogroup 1 antigen not detected. A negative result does not exclude infection with Leginella pnemophila serogroup 1 nor does it rule out other microbial-caused respiratory infections of disease caused by other serogroups of Legionella pneumophila. Test Performed by [facility] [address] [place] [address] - Released 06/05/2023 12:36 Performed By: #### L [id number] #### [facility] [address] [place] [address] LIPID PANELon 06-05-2023 CHOL/HDL 1.6 mg/dL Normal [facility] Comment on above: Performed By: #### L [id number] #### [facility] ([facility]) [address] [place] [address] Cholesterol [Mass/Vol] 74 mg/dL Low 120-200 [facility] Comment on above: Performed By: #### L [id number] #### [facility] ([facility]) [address] [place] [address] Magnesium [Mass/Vol] 65 mg/dL Normal 40-149 [facility] Comment on above: Result Comment: TRIG LYCERIDE REFERENCE RANGE: 20 YEARS AND OLDER CARDIOVASCULAR RISK LESS THAN 150 mg/dL LOW RISK 150 TO 199 mg/dL BORDERLINE RISK 200 mg/dL AND GREATER HIGH RISK Performed By: #### L [id number] #### [facility] ([facility]) [address] [place] [address] Magnesium [Mass/Vol] 14 mg/dL Normal 0-160 [facility] Comment on above: Performed By: #### L [id number] #### [facility] ([facility]) [address] [place] [address] Magnesium [Mass/Vol] 47 mg/dL Normal 23-92 [facility] Comment on above: Performed By: #### L [id number] #### [facility] ([facility]) [address] [place] [address] NON HDL CHOL. (LDL+VLDL) 27 Normal [facility] Comment on above: Performed By: #### L [id number] #### [facility] ([facility]) [address] [facility] [place] [address] TOTAL VLDL-C 13 mg/dL Normal 0-40 [facility] Comment on above: Performed By: #### L [id number] #### [facility] ([facility]) [address] [place] [place] [address] MAGNESIUMon 06-05-2023 Magnesium [Mass/Vol] 1.1 mg/dL Low 1.9-2.7 [facility] Comment on above: Performed By: #### L [id number] #### [facility] ([facility]) [address] [address] [place] [address] PHOSPHORUSon 06-05-2023 Magnesium [Mass/Vol] 2.8 mg/dL Normal 2.5-5.0 [facility] Comment on above: Performed By: #### L [id number] #### [facility] ([facility]) [address] [place] [address] PROTIME-INRon 06-05-2023 INR IN PPP BY COAGULATION ASSAY 1.25 High 0.90-1.10 [facility] Comment on above: Result Comment: ACCC P [...] 1995;[id number]. Performed By: #### L [id number] #### [facility] ([facility]) [address] [place] [address] PROTHROMBIN TIME (PT) IN PPP BY COAGULATION ASSAY 15.7 Seconds High 12.3-14.8 [facility] Comment on above: Performed By: #### L [id number] #### [facility] ([facility]) [address] [place] [address] TOXICOLOGY PANEL URINEon AMPHETAMINE+METHAMPHE TAMINE SCREEN (PRESENCE) IN URINE Negative Normal Negative [facility] Comment on above: Performed By: #### L [id number] ####[facility] ([facility])[address] [place] [address] BARBITURATES PRESENCE IN URINE BY SCREEN METHOD Negative Normal Negative [facility] Comment on above: Performed By: #### L [id number] ####[facility] ([facility])[address] [place] [address] Benzodiazepines Ql (U) Negative Normal Negative [facility] Comment on above: Performed By: #### L [id number] ####[facility] ([facility])[address] [place] [address] CANNABINOID (PRESENCE) IN URINE BY SCREEN METHOD Negative Normal Negative [facility] Comment on above: Performed By: #### L [id number] ####[facility] ([facility])[address] [place] [address] Cocaine Ql (U) Negative Normal Negative [facility] Comment on above: Performed By: #### L [id number] ####[facility] ([facility])[address] [place] [address] METHADONE (PRESENCE) IN URINE BY SCREEN METHOD Negative Normal Negative [facility] Comment on above: Performed By: #### L [id number] ####[facility] ([facility])[address] [place] [address] OPIATES (PRESENCE) IN URINE BY SCREEN METHOD Positive Abnormal Negative [facility] Comment on above: Performed By: #### L [id number] ####[facility] ([facility])[address] [place] [address] PHENCYCLIDINE PRESENCE IN URINE BY SCREEN METHOD Negative Normal Negative [facility] Comment on above: Performed By: #### L [id number] ####[facility] ([facility])[address] [place] [address] Propoxyphene Screen Ql (U) Negative Normal Negative [facility] Comment on above: Performed By: #### L [id number] ####[facility] ([facility])[address] [place] [address] TRICYCLIC ANTIDEPRESSANTS (PRESENCE) IN URINE Negative Normal Negative [facility] Comment on above: Performed By: #### L [id number] ####[facility] ([facility])[address] [place] [address] TROPONIN Ion 06-05-2023 Troponin I.cardiac [Mass/Vol] 0.04 ng/mL Normal 0.00-0.04 [facility] Comment on above: Performed By: #### L [id number] #### [facility] ([facility]) [address] [place] [address] Troponin I.cardiac [Mass/Vol] 0.06 ng/mL High 0.00-0.04 [facility] Comment on above: Performed By: #### L [id number] ####[facility] ([facility])[address] [place] [address] TSH3 REFLEX TO FT4on 023 THYROTROPIN (MIU/L) IN SER/PLAS BY DETECTION LIMIT <= 0.05 MIU/L 1.46 mIU/L Normal 0.34-5.60 [facility] Comment on above: Performed By: #### L [id number] ####[facility] ([facility])[address] [place] [address] URINALYSIS MICROSCOPIC WITH REFLEX CULTUREon 06-05-2023 CASTS IN URINE Normal [facility] Comment on above: Performed By: #### L [id number] ####[facility] ([facility])[address] [place] [address] CRYSTALS IN URINE Normal [facility] Comment on above: Performed By: #### L [id number] ####[facility] [place] [address] OTHER MICROSCOPIC ELEMENTS Normal [facility] Comment on above: Performed By: #### L [id number] ####[facility] ([facility])[address] [place] [address] RBC (#/HPF) IN URINE SEDIMENT 6-10 Abnormal None Seen [facility] Comment on above: Performed By: #### L [id number] ####[facility] ([facility])[address] [place] [address] SQUAMOUS EPITHELIAL CELLS (#/HPF) IN URINE SEDIMENT Many Abnormal None Seen, Occasional [facility] Comment on above: Performed By: #### L [id number] ####[facility] ([facility])[address] [place] [address] WBC (LEUKOCYTE) (#/HPF) IN URINE SEDIMENT >100 Abnormal None Seen [facility] Comment on above: Performed By: #### L [id number] ####[facility] ([facility])[address] [place] [address] URINALYSIS WITH REFLEX CULTU REon 06-05-2023 BILIRUBIN, TOTAL PRESENCE IN URINE Negative Normal Negative [facility] Comment on above: Performed By: #### L [id number] ####[facility] ([facility])[address] [place] [address] Clarity (U) Clear Normal Clear [facility] Comment on above: Performed By: #### L [id number] ####[facility] ([facility])[address] [place] [address] Color (U) Yellow Normal Yellow [facility] Comment on above: Performed By: #### L [id number] ####[facility] ([facility])[address] [place] [address] Glucose (U) [Mass/Vol] Negative Normal Negative [facility] Comment on above: Performed By: #### L [id number] ####[facility] ([facility])[address] [place] [address] HEMOGLOBIN PRESENCE IN URINE Moderate Abnormal Negative [facility] Comment on above: Performed By: #### L [id number] ####[facility] ([facility])[address] [place] [address] Ketones Ql (U) Trace Abnormal Negative [facility] Comment on above: Performed By: #### L [id number] ####[facility] ([facility])[address] [place] [address] LEUKOCYTE ESTERASE PRESENCE IN URINE BY TEST STRIP Large Abnormal Negative [facility] Comment on above: Performed By: #### L [id number] ####[facility] ([facility])[address] [place] [address] NITRITE PRESENCE IN URINE Positive Abnormal Negative [facility] Comment on above: Performed By: #### L [id number] ####[facility] ([facility])[address] [place] [address] pH (U) 6.0 [pH] Normal 5.0-8.0 [facility] Comment on above: Performed By: #### L [id number] ####[facility] ([facility])[address] [place] [address] Protein (U) [Mass/Vol] 30 mg/dL Abnormal Negative [facility] Comment on above: Performed By: #### L [id number] ####[facility] ([facility])[address] [place] [address] Specific gravity (U) [Rel density] 1.012 Low 1.015-1.020 [facility] Comment on above: Performed By: #### L [id number] ####[facility] ([facility])[address] [place] [address] 30on 06-04-2023 30 The patient is Moderately Stable - Low risk of patient condition declining or worsening The patient's goals for the shift include comfort The clinical goals for the shift include VSS Normal [facility] CT CHEST WO CONon 10-31-2022 CT CHEST [...] (Bld) [Mass/Vol] 11.8 g/dL Critically low 12.0-16.0 [facility] Comment on above: Performed By: #### C VDTB #### [facility] [address] [place] [address] Dr. Kayley Hatfield BUNon 10-10-2022 Urea nitrogen [Mass/Vol] 13.0 mg/dL Normal 7.0-18.0 [facility] Comment on above: Performed By: #### L DH #### [facility] [address] [place] [address] Dr. Kayley Hatfield CALCIUMon 10-10-2022 Calcium [Mass/Vol] 9.7 mg/dL Normal 8.5-10.1 [facility] Comment on above: Performed By: #### L DH #### [facility] [address] [place] [address] Dr. Kayley Hatfield CREATININEon 10-10-2022 Creatinine [Mass/Vol] 1.19 mg/dL Critically high 0.55-1.02 [facility] Comment on above: Performed By: #### L DH #### [facility] [address] [place] [address] Dr. Kayley Hatfield EGFR-AF BURKINAN 55 mL/min/1.73m2 Critically low >=60 [facility] Comment on above: Performed By: #### L DH #### [facility] [address] [place] [address] Dr. Kayley Hatfield EGFR-NON AF BURKINAN 46 mL/min/1.73m2 Critically low >=60 [facility] Comment on above: Performed By: #### L DH #### [facility] [address] [place] [address] Dr. Kayley Hatfield CRPon 10-10-2022 CRP [Mass/Vol] mg/L Normal <=1.0 [facility] Comment on above: Performed By: #### L DH #### [facility] [address] [place] [address] Dr. Kayley Hatfield MAGNESIUMon 10-10-2022 Magnesium [Mass/Vol] 1.7 mg/dL Critically low 1.8-2.4 [facility] Comment on above: Performed By: #### L DH #### [facility] [address] [place] [address] Dr. Kayley Hatfield PHOSPHORUSon 10-10-2022 Phosphate [Mass/Vol] 4.0 mg/dL Normal 2.6-4.7 [facility] Comment on above: Performed By: #### L DH #### [facility] [address] [place] [address] Dr. Kayley Hatfield SED RATE WESTERGRENon 2022 SED RATE 25 mm/hr Normal <=30 [facility] Comment on above: Performed By: #### P RTELEC #### [facility] [address] [place] [address] Dr. Kayley Hatfield CBC AUTO DIFFon 05-01-2022 BASO # 0.1 103/ul Normal 0.0-0.1 [facility] Comment on above: Performed By: #### P RBC #### [facility] [address] [address] [address] Kayley Hatfield Basophils/100 WBC (Bld) 0.5 % Normal 0.2-2.0 [facility] Comment on above: Performed By: #### P RBC #### [facility] [address] [address] [address] Kayley Hatfield EO # 0.2 103/ul Normal 0.0-0.7 [facility] Comment on above: Performed By: #### P RBC #### [facility] [address] [address] [address] Kayley Hatfield Eosinophils/100 WBC (Bld) 1.2 % Normal 0.9-7.0 [facility] Comment on above: Performed By: #### P RBC #### [facility] [address] [address] [address] Kayley Hatfield Erythrocyte distribution width (RBC) [Ratio] 14.9 % Normal 11.0-15.0 [facility] Comment on above: Performed By: #### P RBC #### [facility] [address] [address] [address] Kayley Hatfield Hematocrit (Bld) [Volume fraction] 34.2 % Critically low 36.0-48.0 [facility] Comment on above: Performed By: #### P RBC #### [facility] [address] [address] [address] Kayley Hatfield Hemoglobin (Bld) [Mass/Vol] 10.3 g/dL Critically low 12.0-16.0 [facility] Comment on above: Performed By: #### P RBC #### [facility] [address] [address] [address] Kayley Hatfield IG # 0.19 10e3/ul Critically high 0.00-0.03 [facility] Comment on above: Performed By: #### P RBC #### [facility] [address] [address] [address] Kayley Hatfield IG % 1.3 % Critically high 0.0-0.5 [facility] Comment on above: Performed By: #### P RBC #### [facility] [address] [address] [address] Kayley Hatfield LYMPH # 1.1 103/ul Critically low 1.2-3.8 [facility] Comment on above: Performed By: #### P RBC #### [facility] [address] [address] [address] Kayley Hatfield Lymphocytes/100 WBC (Bld) 7.3 % Critically low 20.5-60.0 [facility] Comment on above: Performed By: #### P RBC #### [facility] [address] [place] [address] Dr. Kayley Hatfield MANUAL DIFF REQ NO Normal [facility] Comment on above: Performed By: #### P RBC #### [facility] [address] [place] [address] Dr. Kayley Hatfield MCH (RBC) [Entitic mass] 28.4 pg Normal 26.7-34.0 [facility] Comment on above: Performed By: #### P RBC #### [facility] [address] [place] [address] Dr. Kayley Hatfield MCHC (RBC) [Mass/Vol] 30.1 g/dL Normal 29.9-35.2 [facility] Comment on above: Performed By: #### P RBC #### [facility] [address] [place] [address] Dr. Kayley Hatfield MCV (RBC) [Entitic vol] 94.2 fL Normal 81.0-99.0 [facility] Comment on above: Performed By: #### P RBC #### [facility] [address] [place] [address] Dr. Kayley Hatfield MONO # 0.6 103/ul Normal 0.3-0.8 [facility] Comment on above: Performed By: #### P RBC #### [facility] [address] [place] [address] Dr. Kayley Hatfield Monocytes/100 WBC (Bld) 4.0 % Normal 1.7-12.0 [facility] Comment on above: Performed By: #### P RBC #### [facility] [address] [address] [address] Kayley Hatfield NEUT # 12.5 103/ul Critically high 1.4-6.5 [facility] Comment on above: Performed By: #### P RBC #### [facility] [address] [address] [address] Kayley Hatfield Neutrophils/100 WBC (Bld) 85.7 % Critically high 43.0-75.0 [facility] Comment on above: Performed By: #### P RBC #### [facility] [address] [address] [address] Kayley Hatfield Platelet mean volume (Bld) [Entitic vol] 8.5 fL Critically low 9.5-13.5 [facility] Comment on above: Performed By: #### P RBC #### [facility] [address] [address] [address] Kayley Hatfield PLT 574 103/ul Critically high 150-450 [facility] Comment on above: Performed By: #### P RBC #### [facility] [address] [address] [address] Kayley Hatfield RBC 3.63 106/ul Critically low 4.20-5.40 [facility] Comment on above: Performed By: #### P RBC #### [facility] [address] [address] [address] Kayley Hatfield WBC 14.6 103/ul Critically high 4.0-11.0 [facility] Comment on above: Performed By: #### P RBC #### [facility] [address] [address] [address] Kayley Hatfield MAGNESIUMon 05-01-2022 Magnesium [Mass/Vol] 2.1 mg/dL Normal 1.8-2.4 [facility] Comment on above: Performed By: #### O BSCRN #### [facility] [address] [address] [address] Kayley Hatfield PROF CHEM 8 (BAS METB)on Anion gap [Moles/Vol] 8.6 mmol/L Normal [facility] Comment on above: Performed By: #### O BSCRN #### [facility] [address] [place] [address] Dr. Kayley Hatfield Calcium [Mass/Vol] 9.0 mg/dL Normal 8.5-10.1 [facility] Comment on above: Performed By: #### O BSCRN #### [facility] [address] [place] [address] Dr. Kayley Hatfield Chloride [Moles/Vol] 101 mmol/L Normal 98-107 [facility] Comment on above: Performed By: #### O BSCRN #### [facility] [address] [place] [address] Dr. Kayley Hatfield CO2 [Moles/Vol] 33.0 mmol/L Critically high 21.0-32.0 [facility] Comment on above: Performed By: #### O BSCRN #### [facility] [address] [place] [address] Dr. Kayley Hatfield Creatinine [Mass/Vol] 0.94 mg/dL Normal 0.55-1.02 [facility] Comment on above: Performed By: #### O BSCRN #### [facility] [address] [place] [address] Dr. Kayley Hatfield EGFR-AF BURKINAN >60 Normal >=60 [facility] Comment on above: Performed By: #### O BSCRN #### [facility] [address] [place] [address] Dr. Kayley Hatfield EGFR-NON AF BURKINAN >60 Normal >=60 [facility] Comment on above: Performed By: #### O BSCRN #### [facility] [address] [place] [address] Dr. Kayley Hatfield Glucose [Mass/Vol] 143 mg/dL Critically high 74-106 [facility] Comment on above: Performed By: #### O BSCRN #### [facility] [address] [place] [address] Dr. Kayley Hatfield Potassium [Moles/Vol] 4.6 mmol/L Normal 3.5-5.1 [facility] Comment on above: Performed By: #### O BSCRN #### [facility] [address] [place] [address] Dr. Kayley Hatfield Sodium [Moles/Vol] 138 mmol/L Normal 136-145 [facility] Comment on above: Performed By: #### O BSCRN #### [facility] [address] [place] [address] Dr. Kayley Hatfield Urea nitrogen [Mass/Vol] 15.0 mg/dL Normal 7.0-18.0 [facility] Comment on above: Performed By: #### O BSCRN #### [facility] [address] [place] [address] Dr. Kayley Hatfield Urea nitrogen/Creatinine [Mass ratio] 16.0 mg/mg Normal [facility] Comment on above: Performed By: #### O BSCRN #### [facility] [address] [place] [address] Dr. Kayley Hatfield CBC AUTO DIFFon 04-26-2022 BASO # 0.1 103/ul Normal 0.0-0.1 [facility] Comment on above: Performed By: #### P RBC #### [facility] [address] [place] [address] Dr. Kayley Hatfield Basophils/100 WBC (Bld) 0.5 % Normal 0.2-2.0 [facility] Comment on above: Performed By: #### P RBC #### [facility] [address] [place] [address] Dr. Kayley Hatfield EO # 0.2 103/ul Normal 0.0-0.7 [facility] Comment on above: Performed By: #### P RBC #### [facility] [address] [place] [address] Dr. Kayley Hatfield Eosinophils/100 WBC (Bld) 1.8 % Normal 0.9-7.0 [facility] Comment on above: Performed By: #### P RBC #### [facility] [address] [place] [address] Dr. Kayley Hatfield Erythrocyte distribution width (RBC) [Ratio] 14.7 % Normal 11.0-15.0 [facility] Comment on above: Performed By: #### P RBC #### [facility] [address] [place] [address] Dr. Kayley Hatfield Hematocrit (Bld) [Volume fraction] 32.0 % Critically low 36.0-48.0 [facility] Comment on above: Performed By: #### P RBC #### [facility] [address] [place] [address] Dr. Kayley Hatfield Hemoglobin (Bld) [Mass/Vol] 9.9 g/dL Critically low 12.0-16.0 [facility] Comment on above: Performed By: #### P RBC #### [facility] [address] [place] [address] Dr. Kayley Hatfield IG # 0.07 10e3/ul Critically high 0.00-0.03 [facility] Comment on above: Performed By: #### P RBC #### [facility] [address] [place] [address] Dr. Kayley Hatfield IG % 0.6 % Critically high 0.0-0.5 [facility] Comment on above: Performed By: #### P RBC #### [facility] [address] [place] [address] Dr. Kayley Hatfield LYMPH # 1.2 103/ul Normal 1.2-3.8 [facility] Comment on above: Performed By: #### P RBC #### [facility] [address] [place] [address] Dr. Kayley Hatfield Lymphocytes/100 WBC (Bld) 10.9 % Critically low 20.5-60.0 [facility] Comment on above: Performed By: #### P RBC #### [facility] [address] [place] [address] Dr. Kayley Hatfield MANUAL DIFF REQ NO Normal [facility] Comment on above: Performed By: #### P RBC #### [facility] [address] [place] [address] Dr. Kayley Hatfield MCH (RBC) [Entitic mass] 28.4 pg Normal 26.7-34.0 [facility] Comment on above: Performed By: #### P RBC #### [facility] [address] [address] [address] Kayley Hatfield MCHC (RBC) [Mass/Vol] 30.9 g/dL Normal 29.9-35.2 [facility] Comment on above: Performed By: #### P RBC #### [facility] [address] [address] [address] Kayley Hatfield MCV (RBC) [Entitic vol] 92.0 fL Normal 81.0-99.0 [facility] Comment on above: Performed By: #### P RBC #### [facility] [address] [place] [address] Dr. Kayley Hatfield MONO # 1.4 103/ul Critically high 0.3-0.8 [facility] Comment on above: Performed By: #### P RBC #### [facility] [address] [place] [address] Dr. Kayley Hatfield Monocytes/100 WBC (Bld) 11.9 % Normal 1.7-12.0 [facility] Comment on above: Performed By: #### P RBC #### [facility] [address] [place] [address] Dr. Kayley Hatfield NEUT # 8.4 103/ul Critically high 1.4-6.5 [facility] Comment on above: Performed By: #### P RBC #### [facility] [address] [address] [address] Kayley Hatfield Neutrophils/100 WBC (Bld) 74.3 % Normal 43.0-75.0 [facility] Comment on above: Performed By: #### P RBC #### [facility] [address] [address] [address] Kayley Hatfield Platelet mean volume (Bld) [Entitic vol] 8.8 fL Critically low 9.5-13.5 [facility] Comment on above: Performed By: #### P RBC #### [facility] [address] [place] [address] Dr. Kayley Hatfield PLT 953 103/ul Critically high 150-450 [facility] Comment on above: Performed By: #### P RBC #### [facility] [address] [address] [address] Kayley Hatfield RBC 3.48 106/ul Critically low 4.20-5.40 [facility] Comment on above: Performed By: #### P RBC #### [facility] [address] [place] [address] Dr. Kayley Hatfield WBC 11.3 103/ul Critically high 4.0-11.0 [facility] Comment on above: Performed By: #### P RBC #### [facility] [address] [place] [address] Dr. Kayley Hatfield POINT OF CARE GLUCOSEon 04-08 Glucose [Mass/Vol] 225 mg/dL Critically high 74-106 [facility] Comment on above: Performed By: #### B [id number] #### [facility] [address] [place] [address] Dr. Kayley Hatfield PROF CHEM 8 (BAS METB)on Anion gap [Moles/Vol] 10.7 mmol/L Normal [facility] Comment on above: Performed By: #### P RBC #### [facility] [address] [place] [address] Dr. Kayley Hatfield Calcium [Mass/Vol] 9.2 mg/dL Normal 8.5-10.1 [facility] Comment on above: Performed By: #### P RBC #### [facility] [address] [place] [address] Dr. Kayley Hatfield Chloride [Moles/Vol] 103 mmol/L Normal 98-107 [facility] Comment on above: Performed By: #### P RBC #### [facility] [address] [place] [address] Dr. Kayley Hatfield CO2 [Moles/Vol] 29.2 mmol/L Normal 21.0-32.0 [facility] Comment on above: Performed By: #### P RBC #### [facility] [address] [place] [address] Dr. Kayley Hatfield Creatinine [Mass/Vol] 0.85 mg/dL Normal 0.55-1.02 [facility] Comment on above: Performed By: #### P RBC #### [facility] [address] [address] [address] Kayley Hatfield EGFR-AF BURKINAN >60 Normal >=60 [facility] Comment on above: Performed By: #### P RBC #### [facility] [address] [address] [address] Kayley Hatfield EGFR-NON AF BURKINAN >60 Normal >=60 [facility] Comment on above: Performed By: #### P RBC #### [facility] [address] [address] [address] Kayley Hatfield Glucose [Mass/Vol] 81 mg/dL Normal 74-106 [facility] Comment on above: Performed By: #### P RBC #### [facility] [address] [address] [address] Kayley Hatfield Potassium [Moles/Vol] 3.9 mmol/L Normal 3.5-5.1 [facility] Comment on above: Performed By: #### P RBC #### [facility] [address] [address] [address] Kayley Hatfield Sodium [Moles/Vol] 139 mmol/L Normal 136-145 [facility] Comment on above: Performed By: #### P RBC #### [facility] [address] [address] [address] Kayley Hatfield Urea nitrogen [Mass/Vol] 9.0 mg/dL Normal 7.0-18.0 [facility] Comment on above: Performed By: #### P RBC #### [facility] [address] [address] [address] Kayley Hatfield Urea nitrogen/Creatinine [Mass ratio] 10.6 mg/mg Normal [facility] Comment on above: Performed By: #### P RBC #### [facility] [address] [address] [address] Kayley Hatfield XR CHEST 2 Von [...] B (Bld) [Mass/Vol] 234.0 pg/mL Normal <=900.0 [facility] Comment on above: Performed By: #### P RTELEC #### [facility] [address] [place] [address] Dr. Kayley Hatfield CBC AUTO DIFFon 04-25-2022 BASO # 0.1 103/ul Normal 0.0-0.1 [facility] Comment on above: Performed By: #### P RBC #### [facility] [address] [place] [address] Dr. Kayley Hatfield Basophils/100 WBC (Bld) 0.4 % Normal 0.2-2.0 [facility] Comment on above: Performed By: #### P RBC #### [facility] [address] [place] [address] Dr. Kayley Hatfield EO # 0.2 103/ul Normal 0.0-0.7 [facility] Comment on above: Performed By: #### P RBC #### [facility] [address] [place] [address] Dr. Kayley Hatfield Eosinophils/100 WBC (Bld) 1.0 % Normal 0.9-7.0 [facility] Comment on above: Performed By: #### P RBC #### [facility] [address] [address] [address] Kayley Hatfield Erythrocyte distribution width (RBC) [Ratio] 14.8 % Normal 11.0-15.0 [facility] Comment on above: Performed By: #### P RBC #### [facility] [address] [address] [address] Kayley Hatfield Hematocrit (Bld) [Volume fraction] 35.4 % Critically low 36.0-48.0 [facility] Comment on above: Performed By: #### P RBC #### [facility] [address] [address] [address] Kayley Hatfield Hemoglobin (Bld) [Mass/Vol] 10.9 g/dL Critically low 12.0-16.0 [facility] Comment on above: Performed By: #### P RBC #### [facility] [address] [address] [address] Kayley Hatfield IG # 0.08 10e3/ul Critically high 0.00-0.03 [facility] Comment on above: Performed By: #### P RBC #### [facility] [address] [address] [address] Kayley Hatfield IG % 0.5 % Normal 0.0-0.5 [facility] Comment on above: Performed By: #### P RBC #### [facility] [address] [address] [address] Kayley Hatfield LYMPH # 1.2 103/ul Normal 1.2-3.8 [facility] Comment on above: Performed By: #### P RBC #### [facility] [address] [address] [address] Kayley Hatfield Lymphocytes/100 WBC (Bld) 7.4 % Critically low 20.5-60.0 [facility] Comment on above: Performed By: #### P RBC #### [facility] [address] [address] [address] Kayley Hatfield MANUAL DIFF REQ NO Normal [facility] Comment on above: Performed By: #### P RBC #### [facility] [address] [address] [address] Kayley Hatfield MCH (RBC) [Entitic mass] 27.9 pg Normal 26.7-34.0 [facility] Comment on above: Performed By: #### P RBC #### [facility] [address] [address] [address] Kayley Hatfield MCHC (RBC) [Mass/Vol] 30.8 g/dL Normal 29.9-35.2 [facility] Comment on above: Performed By: #### P RBC #### [facility] [address] [address] [address] Kayley Hatfield MCV (RBC) [Entitic vol] 90.5 fL Normal 81.0-99.0 [facility] Comment on above: Performed By: #### P RBC #### [facility] [address] [place] [address] Dr. Kayley Hatfield MONO # 1.5 103/ul Critically high 0.3-0.8 [facility] Comment on above: Performed By: #### P RBC #### [facility] [address] [place] [address] Dr. Kayley Hatfield Monocytes/100 WBC (Bld) 8.7 % Normal 1.7-12.0 [facility] Comment on above: Performed By: #### P RBC #### [facility] Laboratory [address] [place] [address] Dr. Kayley Hatfield NEUT # 13.8 103/ul Critically high 1.4-6.5 [facility] [place] [facility] Comment on above: Performed By: #### P RBC #### [facility] Laboratory [address] [place] [address] Dr. Kayley Hatfield Neutrophils/100 WBC (Bld) 82.0 % Critically high 43.0-75.0 [facility] Comment on above: Performed By: #### P RBC #### [facility] Laboratory [address] [place] [address] Dr. Kayley Hatfield Platelet mean volume (Bld) [Entitic vol] 8.9 fL Critically low 9.5-13.5 [facility] Comment on above: Performed By: #### P RBC #### [facility] [address] [place], [place] [address] Dr. Kayley Hatfield PLT 1076 103/ul Critically high 150-450 [facility] [place] [facility] Comment on above: Performed By: #### P RBC #### [facility] [address] [place], [place] [address] Dr. Kayley Hatfield RBC 3.91 106/ul Critically low 4.20-5.40 [facility] Comment on above: Performed By: #### P RBC #### [facility] [address] [place], [place] [address] Dr. Kayley Hatfield WBC 16.8 103/ul Critically high 4.0-11.0 [facility] [place] [facility] Comment on above: Performed By: #### P RBC #### [facility] [address] [place], [place] [address] HEAD WO CONon [...] [facility] SARS-CoV-2 (COVID-19) RNA ELBA+probe Ql [...] for this test is supported by the Ac/Dc Rewinder of Health and Human Service's declaration that [...] VDTBH #### [facility] [address] [place] [address] Dr. Kayley Hatfield ER URINE PROFILEon 2 Bilirubin Ql (U) Negative Normal NEGATIVE [facility] Comment on above: Performed By: #### C VDTBH #### [facility] [address] [place] [address] Dr. Kayley Hatfield Clarity (U) CLEAR Normal CLEAR [facility] Comment on above: Performed By: #### C VDTBH #### [facility] [address] [place] [address] Dr. Kayley Hatfield Color (U) LT. YELLOW Normal YELLOW [facility] Comment on above: Performed By: #### C VDTBH #### [facility] [address] [place] [address] Dr. Kayley Hatfield ERUAHD A micrscopic examination will be performed if indicated. Normal [facility] Comment on above: Performed By: #### C VDTBH #### [facility] [address] [place] [address] Dr. Kayley Hatfield Glucose Ql (U) Negative Normal NEGATIVE [facility] Comment on above: Performed By: #### C VDTBH #### [facility] [address] [place] [address] Dr. Kayley Hatfield Hemoglobin Ql (U) TRACE-INTACT Abnormal NEGATIVE [facility] Comment on above: Performed By: #### C VDTBH #### [facility] [address] [place] [address] Dr. Kayley Hatfield Ketones Ql (U) Negative Normal NEGATIVE [facility] Comment on above: Performed By: #### C VDTBH #### [facility] [address] [place] [address] Dr. Kayley Hatfield LEUKOCYTES Negative Normal NEGATIVE [facility] Comment on above: Performed By: #### C VDTBH #### [facility] [address] [place] [address] Dr. Kayley Hatfield Nitrite Ql (U) Negative Normal NEGATIVE [facility] Comment on above: Performed By: #### C VDTBH #### [facility] [address] [place] [address] Dr. Kayley Hatfield pH (U) 8.0 [pH] Normal 5-9 [facility] Comment on above: Performed By: #### C VDTBH #### [facility] [address] [place] [address] Dr. Kayley Hatfield SPEC GRAVITY 1.010 Normal 1.005-<=1.025 [facility] Comment on above: Performed By: #### C VDTBH #### [facility] [address] [place] [address] Dr. Kayley Hatfield UA PROTEIN Negative Normal NEGATIVE/ TRACE [facility] Comment on above: Performed By: #### C VDTBH #### [facility] [address] [place] [address] Dr. Kayley Hatfield UR MICRO IND INDICATED Normal [facility] Comment on above: Performed By: #### C VDTBH #### [facility] [address] [place] [address] Dr. Kayley Hatfield Urobilinogen Qn (U) 0.2 {Lu'U}/dL Normal 0.2 - 1. 0 [facility] Comment on above: Performed By: #### C VDTBH #### [facility] [address] [place] [address] Dr. Kayley Hatfield LACTATE/LACTIC ACIDon 2021 Lactate [Moles/Vol] 1.1 mmol/L Normal 0.4-1.9 [facility] Comment on above: Performed By: #### P RTELEC #### [facility] [address] [place] [address] Dr. Kayley Hatfield PH VENOUS BLOODon 04-25-2022 PCO2 VENOUS 54.5 mmHg Critically high 40.0-52.0 [facility] Comment on above: Performed By: #### L DH #### [facility] [address] [place] [address] Dr. Kayley Hatfield pH VENOUS 7.385 Normal 7.330-7.430 [facility] Comment on above: Performed By: #### L DH #### [facility] [address] [place] [address] Dr. Kayley Hatfield POINT OF CARE GLUCOSEon 04-08 Glucose [Mass/Vol] 91 mg/dL Normal 74-106 [facility] Comment on above: Performed By: #### O BSCRN #### [facility] [address] [place] [address] Dr. Kayley Hatfield Glucose [Mass/Vol] 116 mg/dL Critically high 74-106 [facility] Comment on above: Performed By: #### O BSCRN #### [facility] [address] [place] [address] Dr. Kayley Hatfield PROF 14(COMP METB)on 022 Albumin [Mass/Vol] 2.7 g/dL Critically low 3.4-5.0 [facility] Comment on above: Performed By: #### O BSCRN #### [facility] [address] [place] [address] Dr. Kyaley Hatfield Albumin/Globulin [Mass ratio] 0.6 {ratio} Normal [facility] Comment on above: Performed By: #### O BSCRN #### [facility] [address] [place] [address] Dr. Kayley Hatfield ALP [Catalytic activity/Vol] 132 U/L Critically high 46-116 [facility] Comment on above: Performed By: #### O BSCRN #### [facility] [address] [place] [address] [address] Kayley Hatfield ALT [Catalytic activity/Vol] 21 U/L Normal 14-59 [facility] Comment on above: Performed By: #### O BSCRN #### [facility] [address] [place] [address] [address] Kayley Hatfield Anion gap [Moles/Vol] 8.1 mmol/L Normal [facility] Comment on above: Performed By: #### O BSCRN #### [facility] [address] [place] [address] [address] Kayley Hatfield AST [Catalytic activity/Vol] 23 U/L Normal 15-37 [facility] Comment on above: Performed By: #### O BSCRN #### [facility] [address] [place] [address] Dr. Kayley Hatfield Bilirubin [Mass/Vol] 0.3 mg/dL Normal 0.2-1.0 [facility] Comment on above: Performed By: #### O BSCRN #### [facility] [address] [place] [address] [address] Kayley Hatfield Calcium [Mass/Vol] 9.4 mg/dL Normal 8.5-10.1 [facility] Comment on above: Performed By: #### O BSCRN #### [facility] [address] [place] [address] [address] Kayley Hatfield Chloride [Moles/Vol] 100 mmol/L Normal 98-107 [facility] Comment on above: Performed By: #### O BSCRN #### [facility] [address] [place] [address] [address] Kayley Hatfield CO2 [Moles/Vol] 31.8 mmol/L Normal 21.0-32.0 [facility] Comment on above: Performed By: #### O BSCRN #### [facility] [address] [place] [address] [address] Kayley Hatfield Creatinine [Mass/Vol] 0.79 mg/dL Normal 0.55-1.02 [facility] Comment on above: Performed By: #### O BSCRN #### [facility] [address] [place] [address] [address] Kayley Hatfield EGFR-AF BURKINAN >60 Normal >=60 [facility] Comment on above: Performed By: #### O BSCRN #### [facility] [address] [place] [address] [address] Kayley Hatfield EGFR-NON AF BURKINAN >60 Normal >=60 [facility] Comment on above: Performed By: #### O BSCRN #### [facility] [address] [place] [address] [address] Kayley Hatfield Globulin (S) [Mass/Vol] 4.2 g/dL Normal [facility] Comment on above: Performed By: #### O BSCRN #### [facility] [address] [place] [address] Dr. Kayley Hatfield Glucose [Mass/Vol] 134 mg/dL Critically high 74-106 [facility] Comment on above: Performed By: #### O BSCRN #### [facility] [address] [place] [address] [address] Kayley Hatfield Potassium [Moles/Vol] 3.9 mmol/L Normal 3.5-5.1 [facility] Comment on above: Performed By: #### O BSCRN #### [facility] [address] [place] [address] [address] Kayley Hatfield Protein [Mass/Vol] 6.9 g/dL Normal 6.4-8.2 [facility] Comment on above: Performed By: #### O BSCRN #### [facility] [address] [place] [address] [address] Kayley Hatfield Sodium [Moles/Vol] 136 mmol/L Normal 136-145 [facility] Comment on above: Performed By: #### O BSCRN #### [facility] [address] [place] [address] [address] Kayley Hatfield Urea nitrogen [Mass/Vol] 10.0 mg/dL Normal 7.0-18.0 [facility] Comment on above: Performed By: #### O BSCRN #### [facility] [address] [place] [address] Dr. Kayley Hatfield Urea nitrogen/Creatinine [Mass ratio] 12.7 mg/mg Normal [facility] Comment on above: Performed By: #### O BSCRN #### [facility] [address] [place] [address] Dr. Kayley Hatfield PROTIMEon 04-25-2022 INR Coag (PPP) [Relative time] 1.08 {INR} Normal [facility] Comment on above: Performed By: #### P RTELEC #### [facility] [address] [place] [address] Dr. Kayley Hatfield INR GUIDELINES SEE BELOW Normal [facility] Comment on above: Result Comment: JOAQUIM RED INR: 2.0 - 3.0 CONDITIONS NOT LISTED BELOW 2.5 - 3.5 FOR PROSTHETIC HEART VALVE REPLACEMENT 2.5 - 3.5 RECURRENT THROMBOSIS Performed By: #### P RTELEC #### [facility] [address] [place] [address] Dr. Kayley Hatfield PT Coag (PPP) [Time] 11.6 s Normal 9.0-11.6 [facility] Comment on above: Performed By: #### P RTELEC #### [facility] [address] [place] [address] Dr. Kayley Hatfield PTTon 04-25-2022 aPTT Coag (Bld) [Time] 31.1 s Normal 22.3-36.2 [facility] Comment on above: Performed By: #### P RTELEC #### [facility] [address] [place] [address] Dr. Kayley Hatfield TROPONIN, HIGH SENSITIVITYon 04-25-2022 HSTROP 9.6 pg/mL Normal 4.0-51.3 [facility] Comment on above: Result Comment: CUT- OFF POINTS HAVE BEEN ESTABLISHED BASED ON THE FOURTH UNIVERSAL DEFINITIONS OF MYOCARDIAL INFARCTION. THE UPPER REFERENCE LIMIT (URL) OF TROPONIN, DEFINED THE 99TH PERCENTILE OF cTnI DISTRIBUTION IN A REFERENCE POPULATION, HAS BEEN CONFIRMED THE DECISION THRESHOLD FOR [place] DIAGNOSIS. Performed By: #### P RTELEC #### [facility] [address] [place] [address] Dr. aKyley Hatfield TSHon 04-25-2022 TSH 1.431 uIU/mL Normal 0.358-3.740 [facility] Comment on above: Performed By: #### P RTELEC #### [facility] [address] [place] [address] Dr. Kayley Hatfield URINE MICROSCOPIC ONLYon BACTERIA NONE SEEN Normal NONE SEEN [facility] Comment on above: Performed By: #### C VDTBH #### [facility] [address] [place] [address] Dr. Kayley Hatfield Bacteria identified Cx Nom (U) NOT INDICATED Normal [facility] Comment on above: Performed By: #### C VDTBH #### [facility] [address] [place] [address] Dr. Kayley Hatfield CAST NONE SEEN Normal NONE SEEN [facility] Comment on above: Performed By: #### C VDTBH #### [facility] [address] [place] [address] Dr. Kayley Hatfield Crystals LM Nom (Urine sed) NONE SEEN Normal NONE SEEN [facility] Comment on above: Performed By: #### C VDTBH #### [facility] [address] [place] [address] Dr. Kayley Hatfield Epithelial cells LM Ql (Urine sed) FEW Abnormal NONE SEEN /RARE [facility] Comment on above: Performed By: #### C VDTBH #### [facility] [address] [place] [address] Dr. Kayley Hatfield MUCOUS NONE SEEN Normal NONE SEEN [facility] Comment on above: Performed By: #### C VDTBH #### [facility] [address] [place] [address] Dr. Kayley Hatfield RBC 2-5 Abnormal 0-2 [facility] Comment on above: Performed By: #### C VDTBH #### [facility] [address] [place] [address] Dr. Kayley Hatfield WBC NONE SEEN Normal NONE SEEN [facility] Comment on above: Performed By: #### C VDTBH #### [facility] [address] [place] [address] [address] Kayley Hatfield IMMUNOFIXATION(KENNETH),PROTEIN ELEC(PE[facility] Albumin [Mass/Vol] 3.6 g/dL Normal 2.9-4.4 [facility] Comment on above: Performed By: #### B LDCX1 #### [facility] [address] [place] [address] [address] Kayley Hatfield Albumin/Globulin [Mass ratio] 1.6 {ratio} Normal 0.7-1.7 [facility] Comment on above: Performed By: #### B LDCX1 #### [facility] [address] [place] [address] Dr. Kayley Hatfield Oqrst-2-Swycmlvy 0.3 g/dL Normal 0.0-0.4 [facility] [place] [facility] Comment on above: Performed By: #### B LDCX1 #### [facility] [address] [place] [address] Dr. Kayley Hatfield Yhvrb-4-Mhvesilw 0.8 g/dL Normal 0.4-1.0 [facility] Comment on above: Performed By: #### B LDCX1 #### [facility] [address] [place] [address] Dr. Kayley Hatfield Beta Globulin 1.0 g/dL Normal 0.7-1.3 [facility] Comment on above: Performed By: #### B LDCX1 #### [facility] [address] [place] [address] Dr. Kayley Hatfield Free [place] Lt Chains,S 16.0 mg/L Normal 3.3-19.4 [facility] Comment on above: Performed By: #### B LDCX1 #### [facility] [address] [place] [address] Dr. Kayley Hatfield Free [place] Lt Chains,S 10.1 mg/L Normal 5.7-26.3 [facility] Comment on above: Performed By: #### B LDCX1 #### [facility] [address] [place] [address] [address] Kayley Hatfield Gamma Globulin 0.4 g/dL Normal 0.4-1.8 [facility] Comment on above: Performed By: #### B LDCX1 #### [facility] [address] [place] [address] Dr. Kayley Hatfield Globulin (S) [Mass/Vol] 2.4 g/dL Normal 2.2-3.9 [facility] Comment on above: Performed By: #### B LDCX1 #### [facility] [address] [place] [address] Dr. Kayley Hatfield Immunofixation Result, Serum Comment Normal [facility] Comment on above: Result Comment: No m onoclonality detected. Performed By: #### B LDCX1 #### [facility] [address] [place] [address] Dr. Kayley Hatfield Immunoglobulin A, Qn, Serum 128 mg/dL Normal 87-352 [facility] Comment on above: Performed By: #### B LDCX1 #### [facility] [address] [place] [address] Dr. Kayley Hatfield Immunoglobulin G, Qn, Serum 487 mg/dL Critically low 586-1602 [facility] Comment on above: Performed By: #### B LDCX1 #### [facility] [address] [place] [address] Dr. Kayley Hatfield Immunoglobulin M, Qn, Serum 38 mg/dL Normal 26-217 [facility] Comment on above: Performed By: #### B LDCX1 #### [facility] [address] [place] [address] Dr. Kayley Hatfield [place]/Lambda Ratio, S 1.58 Normal 0.26-1.65 [facility] Comment on above: Performed By: #### B LDCX1 #### [facility] [address] [place] [address] Dr. Kayley Hatfield M-Sandip Not Observed Normal Not Observed [facility] Comment on above: Performed By: #### B LDCX1 #### [facility] [address] [place] [address] Dr. Kayley Hatfield PDF . Normal [facility] Comment on above: Performed By: #### B LDCX1 #### [facility] [address] [place] [address] Dr. Kayley Hatfield Please note: Comment Normal [facility] Comment on above: Result Comment: Prot ein electrophoresis scan will follow via computer, mail, or research environmental scientist delivery. Performed By: #### B LDCX1 #### [facility] [address] [place] [address] Dr. Kayley Hatfield Protein [Mass/Vol] 6.0 g/dL Normal 6.0-8.5 [facility] Comment on above: Performed By: #### B LDCX1 #### [facility] [address] [place] [address] Dr. Kayley Hatfield CBC AUTO DIFFon 03-30-2022 BASO # 0.1 103/ul Normal 0.0-0.1 [facility] Comment on above: Performed By: #### P RBC #### [facility] [address] [place] [address] Dr. Kayley Hatfield Basophils/100 WBC (Bld) 0.4 % Normal 0.2-2.0 [facility] Comment on above: Performed By: #### P RBC #### [facility] [address] [place] [address] Dr. Kayley Hatfield EO # 0.2 103/ul Normal 0.0-0.7 [facility] Comment on above: Performed By: #### P RBC #### [facility] [address] [place] [address] Dr. Kayley Hatfield Eosinophils/100 WBC (Bld) 1.1 % Normal 0.9-7.0 [facility] Comment on above: Performed By: #### P RBC #### [facility] [address] [place] [address] Dr. Kayley Hatfield Erythrocyte distribution width (RBC) [Ratio] 0.0 % Critically low 11.0-15.0 [facility] Comment on above: Performed By: #### P RBC #### [facility] [address] [place] [address] [address] Kayley Hatfield Hematocrit (Bld) [Volume fraction] 24.0 % Critically low 36.0-48.0 [facility] Comment on above: Performed By: #### P RBC #### [facility] [address] [place] [address] Dr. Kayley Hatfield Hemoglobin (Bld) [Mass/Vol] 7.2 g/dL Critically low 12.0-16.0 [facility] Comment on above: Performed By: #### P RBC #### [facility] [address] [place] [address] Dr. Kayley Hatfield IG # 0.10 10e3/ul Critically high 0.00-0.03 [facility] Comment on above: Performed By: #### P RBC #### [facility] [address] [place] [address] Dr. Kayley Hatfield IG % 0.6 % Critically high 0.0-0.5 [facility] Comment on above: Performed By: #### P RBC #### [facility] [address] [place] [address] Dr. Kayley Hatfield LYMPH # 1.5 103/ul Normal 1.2-3.8 [facility] Comment on above: Performed By: #### P RBC #### [facility] [address] [place] [address] Dr. Kayley Hatfield Lymphocytes/100 WBC (Bld) 9.0 % Critically low 20.5-60.0 [facility] Comment on above: Performed By: #### P RBC #### [facility] [address] [place] [address] Dr. Kayley Hatfield MANUAL DIFF REQ NO Normal [facility] Comment on above: Performed By: #### P RBC #### [facility] [address] [place] [address] Dr. Kalyey Hatfield MCH (RBC) [Entitic mass] 27.3 pg Normal 26.7-34.0 [facility] Comment on above: Performed By: #### P RBC #### [facility] [address] [place] [address] Dr. Kayley Hatfield MCHC (RBC) [Mass/Vol] 30.0 g/dL Normal 29.9-35.2 [facility] Comment on above: Performed By: #### P RBC #### [facility] [address] [place] [address] [address] Kayley Hatfield MCV (RBC) [Entitic vol] 90.9 fL Normal 81.0-99.0 [facility] Comment on above: Performed By: #### P RBC #### [facility] [address] [place] [address] [address] Kayley Hatfield MONO # 2.3 103/ul Critically high 0.3-0.8 [facility] Comment on above: Performed By: #### P RBC #### [facility] [address] [place] [address] [address] Kayley Hatfield Monocytes/100 WBC (Bld) 13.8 % Critically high 1.7-12.0 [facility] Comment on above: Performed By: #### P RBC #### [facility] [address] [place] [address] [address] Kayley Hatfield NEUT # 12.7 103/ul Critically high 1.4-6.5 [facility] Comment on above: Performed By: #### P RBC #### [facility] [address] [place] [address] [address] Kayley Hatfield Neutrophils/100 WBC (Bld) 75.1 % Critically high 43.0-75.0 [facility] Comment on above: Performed By: #### P RBC #### [facility] [address] [place] [address] [address] Kayley Hatfield Platelet mean volume (Bld) [Entitic vol] 8.9 fL Critically low 9.5-13.5 [facility] Comment on above: Performed By: #### P RBC #### [facility] [address] [place] [address] [address] Kayley Hatfield PLT 782 103/ul Critically high 150-450 [facility] Comment on above: Performed By: #### P RBC #### [facility] [address] [place] [address] [address] Kayley Hatfield RBC 2.64 106/ul Critically low 4.20-5.40 [facility] Comment on above: Performed By: #### P RBC #### [facility] [address] [address] [address] Kayley Hatfield WBC 16.9 103/ul Critically high 4.0-11.0 [facility] Comment on above: Performed By: #### P RBC #### [facility] [address] [address] [address] Kayley Hatfield PRBC LEUKOREDUCEDon 03-30-20 ABO and Rh group Nom (Bld) Cross Match Result Compatible Unit Blood Type O Pos Unit Number [id number] Status Information Transfused Product ID Red Blood Cells Product Code [id number] Cross Match Result Compatible Unit Blood Type O Pos Unit Number [id number] Status Information Transfused Product ID Red Blood Cells Product Code [id number] Normal [facility] Comment on above: Performed By: #### P RBC #### [facility] [address] [place] [address] Dr. Kayley Hatfield PROF CHEM 8 (BAS METB)on Anion gap [Moles/Vol] 6.9 mmol/L Normal [facility] Comment on above: Performed By: #### P RBC #### [facility] [address] [place] [address] Dr. Kayley Hatfield Calcium [Mass/Vol] 8.7 mg/dL Normal 8.5-10.1 [facility] Comment on above: Performed By: #### P RBC #### [facility] [address] [place] [address] Dr. Kayley Hatfield Chloride [Moles/Vol] 101 mmol/L Normal 98-107 [facility] Comment on above: Performed By: #### P RBC #### [facility] [address] [place] [address] Dr. Kayley Hatfield CO2 [Moles/Vol] 33.3 mmol/L Critically high 21.0-32.0 [facility] Comment on above: Performed By: #### P RBC #### [facility] [address] [place] [address] Dr. Kayley Hatfield Creatinine [Mass/Vol] 0.83 mg/dL Normal 0.55-1.02 [facility] Comment on above: Performed By: #### P RBC #### [facility] [address] [place] [address] Dr. Kayley Hatfield EGFR-AF BURKINAN >60 Normal >=60 [facility] Comment on above: Performed By: #### P RBC #### [facility] [address] [address] [address] Kayley Hatfield EGFR-NON AF BURKINAN >60 Normal >=60 [facility] Comment on above: Performed By: #### P RBC #### [facility] [address] [place] [address] Dr. Kayley Hatfield Glucose [Mass/Vol] 94 mg/dL Normal 74-106 [facility] Comment on above: Performed By: #### P RBC #### [facility] [address] [place] [address] Dr. Kayley Hatfield Potassium [Moles/Vol] 4.2 mmol/L Normal 3.5-5.1 [facility] Comment on above: Performed By: #### P RBC #### [facility] [address] [place] [address] Dr. Kayley Hatfield Sodium [Moles/Vol] 137 mmol/L Normal 136-145 [facility] Comment on above: Performed By: #### P RBC #### [facility] [address] [place] [address] Dr. Kayley Hatfield Urea nitrogen [Mass/Vol] 15.0 mg/dL Normal 7.0-18.0 [facility] Comment on above: Performed By: #### P RBC #### [facility] [address] [place] [address] Dr. Kayley Hatfield Urea nitrogen/Creatinine [Mass ratio] 18.1 mg/mg Normal [facility] Comment on above: Performed By: #### P RBC #### [facility] [address] [place] [address] Dr. Kayley Hatfield PROTEIN ELECTROPHERESISon Albumin [Mass/Vol] 3.4 g/dL Normal 2.9-4.4 [facility] Comment on above: Performed By: #### P RTELEC #### [facility] [address] [place] [address] Dr. Kayley Hatfield Albumin/Globulin [Mass ratio] 1.3 {ratio} Normal 0.7-1.7 [facility] Comment on above: Performed By: #### P RTELEC #### [facility] [address] [place] [address] Dr. Kayley Hatfield Phpfq-6-Ppvrutup 0.3 g/dL Normal 0.0-0.4 [facility] [place] [facility] Comment on above: Performed By: #### P RTELEC #### [facility] [address] [place] [address] Dr. Kayley Hatfield Mkvfy-5-Qlqcqtaw 0.8 g/dL Normal 0.4-1.0 [facility] Comment on above: Performed By: #### P RTELEC #### [facility] [address] [place] [address] Dr. Kayley Hatfield Beta Globulin 1.0 g/dL Normal 0.7-1.3 [facility] Comment on above: Performed By: #### P RTELEC #### [facility] [address] [place] [address] Dr. Kayley Hatfield Gamma Globulin 0.5 g/dL Normal 0.4-1.8 [facility] Comment on above: Performed By: #### P RTELEC #### [facility] [address] [place] [address] Dr. Kayley Hatfield Globulin (S) [Mass/Vol] 2.6 g/dL Normal 2.2-3.9 [facility] Comment on above: Performed By: #### P RTELEC #### [facility] [address] [place] [address] Dr. Kayley Hatfield M-Sandip Not Observed Normal Not Observed [facility] Comment on above: Performed By: #### P RTELEC #### [facility] [address] [place] [address] Dr. Kayley Hatfield PDF . Normal [facility] Comment on above: Performed By: #### P RTELEC #### [facility] [address] [address] [address] Kayley Hatfield Please note: Comment Normal [facility] Comment on above: Result Comment: Prot ein electrophoresis scan will follow via computer, mail, or research environmental scientist delivery. Performed By: #### P RTELEC #### [facility] [address] [address] [address] Kayley Hatfield Protein [Mass/Vol] 6.0 g/dL Normal 6.0-8.5 [facility] Comment on above: Performed By: #### P RTELEC #### [facility] [address] [address] [address] Kyaley Hatfield XR CHEST 1 Von 03-30-2022 XR [...] MANUAL DIFFon 03-29-20 22 ANISOCYTOSIS 2+ Normal [facility] Comment on above: Performed By: #### C VDTBH #### [facility] [address] [address] [address] Kayley Hatfield ATYPICAL LYMPH # Normal [facility] Comment on above: Performed By: #### C VDTBH #### [facility] [address] [address] [address] Kayley Hatfield ATYPICAL LYMPH % Normal [facility] Comment on above: Performed By: #### C VDTBH #### [facility] [address] [place] [address] Dr. Kayley Hatfield BAND # 0.0 103/ul Normal 0.0-0.3 [facility] Comment on above: Performed By: #### C VDTBH #### [facility] [address] [place] [address] Dr. Kayley Hatfield BAND % 0 % Normal 0-5 [facility] Comment on above: Performed By: #### C VDTBH #### [facility] [address] [place] [address] Dr. Kayley Hatfield BASOM # 0.59 103/ul Critically high 0.00-0.10 [facility] Comment on above: Performed By: #### C VDTBH #### [facility] [address] [place] [address] Dr. Kayley Hatfield BASOM % 3.0 % Critically high 0.2-2.0 [facility] Comment on above: Performed By: #### C VDTBH #### [facility] [address] [place] [address] Dr. Kayley Hatfield BLAST # Normal [facility] Comment on above: Performed By: #### C VDTBH #### [facility] [address] [place] [address] Dr. Kayley Hatfield BLAST % Normal [facility] Comment on above: Performed By: #### C VDTBH #### [facility] [address] [place] [address] Dr. Kayley Hatfield CORRECTED WBC Normal 4.0-11.0 [facility] Comment on above: Performed By: #### C VDTBH #### [facility] [address] [place] [address] Dr. Kayley Hatfield EOS # 0.40 103/ul Normal 0.00-0.70 [facility] Comment on above: Performed By: #### C VDTBH #### [facility] [address] [place] [address] Dr. Kayley Hatfield EOS% 2.0 % Normal 0.9-7.0 [facility] Comment on above: Performed By: #### C VDTBH #### [facility] [address] [address] [address] Kayley Hatfield HCT 31.1 % Critically low 36.0-48.0 [facility] Comment on above: Performed By: #### C VDTBH #### [facility] [address] [address] [address] Kayley Hatfield HGB 9.7 g/dl Critically low 12.0-16.0 [facility] Comment on above: Performed By: #### C VDTBH #### [facility] [address] [address] [address] Kayley Hatfield HYPOCHROMASIA 1+ Normal [facility] Comment on above: Performed By: #### C VDTBH #### [facility] [address] [address] [address] Kayley Hatfield LYMPHM # 4.75 103/ul Critically high 1.20-3.80 [facility] Comment on above: Performed By: #### C VDTBH #### [facility] [address] [address] [address] Kayley Hatfield LYMPHM% 24.0 % Normal 20.5-60.0 [facility] Comment on above: Performed By: #### C VDTBH #### [facility] [address] [address] [address] Kayley Hatfield MCH 27.0 pg Normal 26.7-34.0 [facility] Comment on above: Performed By: #### C VDTBH #### [facility] [address] [address] [address] Kayley Hatfield MCHC 31.2 g/dl Normal 29.9-35.2 [facility] Comment on above: Performed By: #### C VDTBH #### [facility] [address] [address] [address] Kayley Hatfield MCV 86.6 fL Normal 81.0-99.0 [facility] Comment on above: Performed By: #### C VDTBH #### [facility] [address] [address] [address] Kayley Hatfield METAMYELOCYTE # Normal [facility] Comment on above: Performed By: #### C VDTBH #### [facility] [address] [place] [address] Dr. Kayley Hatfield METAMYELOCYTE % Normal [facility] Comment on above: Performed By: #### C VDTBH #### [facility] [address] [place] [address] Dr. Kayley Hatfield MONOM# 0.59 103/ul Normal 0.30-0.80 [facility] Comment on above: Performed By: #### C VDTBH #### [facility] [address] [place] [address] Dr. Kayley Hatfield MONOM% 3.0 % Normal 1.7-12.0 [facility] Comment on above: Performed By: #### C VDTBH #### [facility] [address] [place] [address] Dr. Kayley Hatfield MPV 8.4 fL Critically low 9.5-13.5 [facility] Comment on above: Performed By: #### C VDTBH #### [facility] [address] [place] [address] Dr. Kayley Hatfield MYELOCYTE # Normal [facility] Comment on above: Performed By: #### C VDTBH #### [facility] [address] [place] [address] Dr. Kayley Hatfield MYELOCYTE % Normal [facility] Comment on above: Performed By: #### C VDTBH #### [facility] [address] [place] [address] Dr. Kayley Hatfield NRBC Normal [facility] Comment on above: Performed By: #### C VDTBH #### [facility] [address] [place] [address] Dr. Kayley Hatfield OVALOCYTES SLIGHT Normal [facility] Comment on above: Performed By: #### C VDTBH #### [facility] [address] [address] [address] Kayley Hatfield PLT 950 103/ul Critically high 150-450 [facility] Comment on above: Performed By: #### C VDTBH #### [facility] [address] [address] [address] Kayley Hatfield RBC 3.59 106/ul Critically low 4.20-5.40 [facility] Comment on above: Performed By: #### C VDTBH #### [facility] [address] [address] [address] Kayley Hatfield RDW 26.6 % Critically high 11.0-15.0 [facility] Comment on above: Performed By: #### C VDTBH #### [facility] [address] [address] [address] Kayley Hatfield SEG # 13.46 103/ul Critically high 1.40-6.[address] [facility] Comment on above: Performed By: #### C VDTBH #### [facility] [address] [address] [address] Kayley Hatfield SEG % 68.0 % Normal 43.0-75.0 [facility] Comment on above: Performed By: #### C VDTBH #### [facility] [address] [address] [address] Kayley Hatfield WBC 19.8 103/ul Critically high 4.0-11.0 [facility] Comment on above: Performed By: #### C VDTBH #### [facility] [address] [address] [address] Kayley Hatfield PROF CHEM 8 (BAS METB)on Anion gap [Moles/Vol] 8.6 mmol/L Normal [facility] Comment on above: Performed By: #### L DH #### [facility] [address] [address] [address] Kayley Hatfield Calcium [Mass/Vol] 8.9 mg/dL Normal 8.5-10.1 [facility] Comment on above: Performed By: #### L DH #### [facility] [address] [address] [address] Kayley Hatfield Chloride [Moles/Vol] 102 mmol/L Normal 98-107 [facility] Comment on above: Performed By: #### L DH #### [facility] [address] [place] [address] Dr. Kayley Hatfield CO2 [Moles/Vol] 34.3 mmol/L Critically high 21.0-32.0 [facility] Comment on above: Performed By: #### L DH #### [facility] [address] [place] [address] Dr. Kayley Hatfield Creatinine [Mass/Vol] 0.86 mg/dL Normal 0.55-1.02 [facility] Comment on above: Performed By: #### L DH #### [facility] [address] [place] [address] Dr. Kayley Hatfield EGFR-AF BURKINAN >60 Normal >=60 [facility] [place] [facility] Comment on above: Performed By: #### L DH #### [facility] [address] [place] [address] Dr. Kayley Hatfield EGFR-NON AF BURKINAN >60 Normal >=60 [facility] Comment on above: Performed By: #### L DH #### [facility] [address] [place] [address] Dr. Kayley Hatfield Glucose [Mass/Vol] 102 mg/dL Normal 74-106 [facility] Comment on above: Performed By: #### L DH #### [facility] [address] [place] [address] Dr. Kayley Hatfield Potassium [Moles/Vol] 3.9 mmol/L Normal 3.5-5.1 [facility] Comment on above: Performed By: #### L DH #### [facility] [address] [place] [address] Dr. Kayley Hatfield Sodium [Moles/Vol] 141 mmol/L Normal 136-145 [facility] Comment on above: Performed By: #### L DH #### [facility] [address] [place] [address] Dr. Kayley Hatfield Urea nitrogen [Mass/Vol] 20.0 mg/dL Critically high 7.0-18.0 [facility] Comment on above: Performed By: #### L #### [facility] [address] [place], [place] [address] Dr. Kayley Hatfield Urea nitrogen/Creatinine [Mass ratio] 23.3 mg/mg Normal [facility] Comment on above: Performed By: #### L #### [facility] [address] [place], [place] [address] Dr. Kayley Hatfield XR CHEST 1 Von [...] #### [facility] [address] [address] [address] Kayley Hatfield ATYPICAL LYMPH # Normal [facility] [place] [facility] Comment on above: Performed By: #### C ALONZO #### [facility] [address] [address] [address] Kayley Hatfield ATYPICAL LYMPH % Normal [facility] [place] [facility] Comment on above: Performed By: #### C ALONZO #### [facility] [id number] Kayley Hatfield BAND # 0.3 103/ul Normal 0.0-0.3 [facility] Comment on above: Performed By: #### C BCMAN #### [facility] [address] [address] [address] Kayley Hatfield BAND % 2 % Normal 0-5 [facility] Comment on above: Performed By: #### C BCMAN #### [facility] [address] [place] [address] Dr. Kayley Hatfield BASOM # 0.00 103/ul Normal 0.00-0.10 [facility] Comment on above: Performed By: #### C BCMAN #### [facility] [address] [place] [address] Dr. Kayley Hatfield BASOM % 0.0 % Critically low 0.2-2.0 [facility] Comment on above: Performed By: #### C BCKATHY #### [facility] [address] [place] [address] Dr. Kayley Hatfield BLAST # Normal [facility] Comment on above: Performed By: #### C BCKATHY #### [facility] [address] [place] [address] Dr. Kayley Hatfield BLAST % Normal [facility] Comment on above: Performed By: #### C BCKATHY #### [facility] [address] [place] [address] Dr. Kayley Hatfield CORRECTED WBC Normal 4.0-11.0 [facility] Comment on above: Performed By: #### C BCKATHY #### [facility] [address] [place] [address] Dr. Kayley Hatfield EOS # 0.00 103/ul Normal 0.00-0.70 [facility] Comment on above: Performed By: #### C BCKATHY #### [facility] [address] [place] [address] Dr. Kayley Hatfield EOS% 0.0 % Critically low 0.9-7.0 [facility] Comment on above: Performed By: #### C BCKATHY #### [facility] [address] [place] [address] Dr. Kayley Hatfield HCT 23.6 % Critically low 36.0-48.0 [facility] Comment on above: Performed By: #### C ALONZO #### [facility] [address] [address] [address] Kayley Hatfield HGB 6.8 g/dl Critically low 12.0-16.0 [facility] Comment on above: Performed By: #### C ALONZO #### [facility] [address] [address] [address] Kayley Hatfield HYPOCHROMASIA 3+ Normal [facility] Comment on above: Performed By: #### C ALONZO #### [facility] [address] [address] [address] Kayley Hatfield LYMPHM # 1.17 103/ul Critically low 1.20-3.80 [facility] Comment on above: Performed By: #### C ALONZO #### [facility] [address] [place] [address] Dr. Kayley Hatfield LYMPHM% 7.0 % Critically low 20.5-60.0 [facility] Comment on above: Performed By: #### C ALONZO #### [facility] [address] [address] [address] Kayley Hatfield MCH 24.6 pg Critically low 26.7-34.0 [facility] Comment on above: Performed By: #### C ALONZO #### [facility] [address] [place] [address] Dr. Kayley Hatfield MCHC 28.8 g/dl Critically low 29.9-35.2 [facility] Comment on above: Performed By: #### C ALONZO #### [facility] [address] [place] [address] Dr. Kayley Hatfield MCV 85.5 fL Normal 81.0-99.0 [facility] Comment on above: Performed By: #### C ALONZO #### [facility] [address] [place] [address] Dr. Kayley Hatfield METAMYELOCYTE # Normal [facility] Comment on above: Performed By: #### C ALONZO #### [facility] [address] [place] [address] Dr. Kayley Hatfield METAMYELOCYTE % Normal [facility] Comment on above: Performed By: #### C ABBYMAN #### [facility] [address] [place] [address] Dr. Kayley Hatfield MONOM# 0.50 103/ul Normal 0.30-0.80 [facility] Comment on above: Performed By: #### C ALONZO #### [facility] [address] [place] [address] Dr. Kayley Hatfield MONOM% 3.0 % Normal 1.7-12.0 [facility] Comment on above: Performed By: #### C ALONZO #### [facility] [address] [place] [address] Dr. Kayley Hatfield MPV 8.6 fL Critically low 9.5-13.5 [facility] Comment on above: Performed By: #### C ALONZO #### [facility] [address] [place] [address] Dr. Kayley Hatfield MYELOCYTE # Normal [facility] Comment on above: Performed By: #### C ALONZO #### [facility] [address] [place] [address] Dr. Kayley Hatfield MYELOCYTE % Normal [facility] Comment on above: Performed By: #### C ALONZO #### [facility] [address] [place] [address] Dr. Kayley Hatfield NRBC Normal [facility] Comment on above: Performed By: #### C ALONZO #### [facility] [address] [place] [address] Dr. Kayley Hatfield OVALOCYTES SLIGHT Normal [facility] Comment on above: Performed By: #### C ALONZO #### [facility] [address] [place] [address] Dr. Kayley Hatfield PLT 1384 103/ul Critically high 150-450 [facility] Comment on above: Performed By: #### C ALONZO #### [facility] [address] [place] [address] Dr. Kayley Hatfield RBC 2.76 106/ul Critically low 4.20-5.40 [facility] Comment on above: Performed By: #### C BCMAN #### [facility] [address] [address] [address] Kayley Hatfield RDW 0.0 % Critically low 11.0-15.0 [facility] Comment on above: Performed By: #### C ABBYMAN #### [facility] [address] [address] [address] Kayley Hatfield SEG # 14.70 103/ul Critically high 1.40-6.50 [facility] Comment on above: Performed By: #### C ABBYMAN #### [facility] [address] [address] [address] Kayley Hatfield SEG % 88.0 % Critically high 43.0-75.0 [facility] Comment on above: Performed By: #### C ALONZO #### [facility] [address] [address] [address] Kayley Hatfield WBC 16.7 103/ul Critically high 4.0-11.0 [facility] Comment on above: Performed By: #### C ALONZO #### [facility] [address] [address] [address] Kayley Hatfield CRPon 03-28-2022 CRP [Mass/Vol] mg/L Normal <=1.0 [facility] Comment on above: Performed By: #### H GBHCT #### [facility] [address] [place] [address] Dr. Kayley Hatfield [facility] SARS-CoV-2 (COVID-19) RNA ELBA+probe Ql [...] for this test is supported by the Ac/Dc [employer] of Health and Human Service's declaration that [...] RBC #### [facility] [address] [place] [address] Dr. Kayley Hatfield ER URINE PROFILEon 2 Bilirubin Ql (U) Negative Normal NEGATIVE The [facility] Comment on above: Performed By: #### P RBC #### [facility] [address] [place] [address] Dr. Kayley Hatfield Clarity (U) CLEAR Normal CLEAR [facility] Comment on above: Performed By: #### P RBC #### [facility] [address] [place] [address] Dr. Kayley Hatfield Color (U) LT. YELLOW Normal YELLOW [facility] Comment on above: Performed By: #### P RBC #### [facility] [address] [place] [address] Dr. Kayley [place] A micrscopic examination will be performed if indicated. Normal [facility] Comment on above: Performed By: #### P RBC #### [facility] [address] [place] [address] Dr. Kayley Hatfield Glucose Ql (U) Negative Normal NEGATIVE [facility] Comment on above: Performed By: #### P RBC #### [facility] [address] [place] [address] Dr. Kayley aHtfield Hemoglobin Ql (U) Negative Normal NEGATIVE [facility] Comment on above: Performed By: #### P RBC #### [facility] [address] [place] [address] Dr. Kayley Hatfield Ketones Ql (U) Negative Normal NEGATIVE [facility] Comment on above: Performed By: #### P RBC #### [facility] [address] [address] [address] Kayley Hatfield LEUKOCYTES Negative Normal NEGATIVE [facility] Comment on above: Performed By: #### P RBC #### [facility] [address] [address] [address] Kayley Hatfield Nitrite Ql (U) Negative Normal NEGATIVE [facility] Comment on above: Performed By: #### P RBC #### [facility] [address] [address] [address] Kayley Hatfield pH (U) 6.0 [pH] Normal 5-9 [facility] Comment on above: Performed By: #### P RBC #### [facility] [address] [place] [address] Dr. Kayley Hatfield SPEC GRAVITY <=1.005 Abnormal 1.005-<=1.025 [facility] Comment on above: Performed By: #### P RBC #### [facility] [address] [place] [address] Dr. Kayley Hatfield UA PROTEIN Negative Normal NEGATIVE/ TRACE [facility] Comment on above: Performed By: #### P RBC #### [facility] [address] [place] [address] Dr. Kayley Hatfield UR MICRO IND NOT INDICATED Normal [facility] Comment on above: Performed By: #### P RBC #### [facility] [address] [place] [address] Dr. Kayley Hatfield Urobilinogen Qn (U) 0.2 {Lu'U}/dL Normal 0.2 - 1. 0 [facility] Comment on above: Performed By: #### P RBC #### [facility] [address] [place] [address] Dr. Kayley Hatfield FERRITINon 03-28-2022 Ferritin [Mass/Vol] 61.0 ng/mL Normal 8.0-252.0 [facility] Comment on above: Performed By: #### P RBC #### [facility] [address] [place] [address] Dr. Kayley Hatfield GLYCOHEMOGLOBIN A1Con 2021 ADA RECOMMENDATION SEE BELOW Normal [facility] Comment on above: Result Comment: ADA RECOMMENDED LIMIT 4.0 - 6.0 ADA THERAPEUTIC TARGET < 7.0 ACTION SUGGESTED > 7.0 Performed By: #### P RBC #### [facility] [address] [place] [address] Dr. Kayley Hatfield Glucose [Mass/Vol] 114 mg/dL Normal [facility] Comment on above: Performed By: #### P RBC #### [facility] [address] [place] [address] Dr. Kayley Hatfield HbA1c (Bld) [Mass fraction] 5.6 % Normal 4.5-6.2 [facility] Comment on above: Performed By: #### P RBC #### [facility] [address] [place] [address] Dr. Kayley Hatfield IRONon 03-28-2022 Iron [Mass/Vol] 37.0 ug/dL Critically low 50.0-170.0 [facility] Comment on above: Performed By: #### P RBC #### [facility] [address] [place] [address] Dr. Kayley Hatfield LDHon 03-28-2022 LDH 174 U/L Normal 81-234 [facility] Comment on above: Performed By: #### L DH #### [facility] [address] [place] [address] Dr. Kayley Hatfield LIPID PROFILEon 03-28-2022 CHOL-HDL RATIO NORM SEE BELOW Normal The [facility] Comment on above: Result Comment: 3.3 - 4.4 LOW RISK 4.4 - 7.1 AVERAGE RISK 7.1 - 11.0 MODERATE RISK >11.0 HIGH RISK Performed By: #### P RBC #### [facility] [address] [place] [address] Dr. Kayley Hatfield Cholesterol [Mass/Vol] 193 mg/dL Normal <=200 [facility] Comment on above: Performed By: #### P RBC #### [facility] [address] [place] [address] Dr. Kayley Hatfield Cholesterol in HDL [Mass/Vol] 95 mg/dL Critically high 40-60 [facility] Comment on above: Performed By: #### P RBC #### [facility] [address] [address] [address] Kayley Hatfield Cholesterol in LDL [Mass/Vol] 74.8 mg/dL Normal [facility] Comment on above: Performed By: #### P RBC #### [facility] [address] [address] [address] Kayley Hatfield Cholesterol.total/Cho lesterol in HDL [Mass ratio] 2.0 {ratio} Normal [facility] Comment on above: Performed By: #### P RBC #### [facility] [address] [address] [address] Kayley Hatfield HDL NORMAL > or = 60 mg/dl - LO W CARDIOVASCULAR RISK <40 mg/dl - HIGH CARDIOVASCULAR RISK Normal [facility] Comment on above: Performed By: #### P RBC #### [facility] [address] [place] [address] Dr. Kayley Hatfield LDL CALC NORMAL SEE BELOW Normal [facility] Comment on above: Result Comment: <100 mg/dl OPTIMAL 100 - 129 mg/dl NEAR OR ABOVE OPTIMAL 130 - 159 mg/dl BORDERLINE HIGH 160 - 189 mg/dl HIGH >190 mg/dl VERY HIGH Performed By: #### P RBC #### [facility] [address] [place] [address] Dr. Kayley Hatfield Triglyceride [Mass/Vol] 116 mg/dL Normal <=150 [facility] Comment on above: Performed By: #### P RBC #### [facility] [address] [address] [address] Kayley Hatfield VLDL CALC 23.2 mg/dL Normal [facility] Comment on above: Performed By: #### P RBC #### [facility] [address] [address] [address] Kayley Hatfield LIVER PROFILEon 03-28-2022 Albumin [Mass/Vol] 3.2 g/dL Critically low 3.4-5.0 Th e [facility] Comment on above: Performed By: #### P RBC #### [facility] [address] [place] [address] Dr. Kayley Hatfield Albumin/Globulin [Mass ratio] 1.0 {ratio} Normal [facility] Comment on above: Performed By: #### P RBC #### [facility] [address] [address] [address] Kayley Hatfield ALP [Catalytic activity/Vol] 56 U/L Normal 46-116 [facility] Comment on above: Performed By: #### P RBC #### [facility] [address] [address] [address] Kayley Hatfield ALT [Catalytic activity/Vol] 32 U/L Normal 14-59 [facility] Comment on above: Performed By: #### P RBC #### [facility] [address] [address] [address] Kayley Hatfield AST [Catalytic activity/Vol] 18 U/L Normal 15-37 [facility] Comment on above: Performed By: #### P RBC #### [facility] [address] [place] [address] Dr. Kayley Hatfield BILI, CONJUGATED 0.1 mg/dL Normal 0.0-0.2 [facility] Comment on above: Performed By: #### P RBC #### [facility] [address] [place] [address] Dr. Kayley Hatfield Bilirubin [Mass/Vol] 0.2 mg/dL Normal 0.2-1.0 [facility] Comment on above: Performed By: #### P RBC #### [facility] [address] [place] [address] Dr. Kayley Hatfield Globulin (S) [Mass/Vol] 3.1 g/dL Normal [facility] Comment on above: Performed By: #### P RBC #### [facility] [address] [address] [address] Kayley Hatfield Protein [Mass/Vol] 6.3 g/dL Critically low 6.4-8.2 [facility] Comment on above: Performed By: #### P RBC #### [facility] [address] [place] [address] Dr. Kayley Hatfield MAGNESIUMon 03-28-2022 Magnesium [Mass/Vol] 1.8 mg/dL Normal 1.8-2.4 [facility] Comment on above: Performed By: #### H GBHCT #### [facility] [address] [address] [address] Kayley Hatfield PHOSPHORUSon 03-28-2022 Phosphate [Mass/Vol] 4.4 mg/dL Normal 2.6-4.7 [facility] Comment on above: Performed By: #### O BSCRN #### [facility] [address] [place] [address] Dr. Kayley Hatfield PROF CHEM 8 (BAS METB)on Anion gap [Moles/Vol] 10.1 mmol/L Normal [facility] Comment on above: Performed By: #### P RBC #### [facility] [address] [place] [address] Dr. Kayley Hatfield Calcium [Mass/Vol] 9.1 mg/dL Normal 8.5-10.1 [facility] Comment on above: Performed By: #### P RBC #### [facility] [address] [place] [address] Dr. Kayley Hatfield Chloride [Moles/Vol] 101 mmol/L Normal 98-107 [facility] Comment on above: Performed By: #### P RBC #### [facility] [address] [address] [address] Kayley Hatfield CO2 [Moles/Vol] 32.6 mmol/L Critically high 21.0-32.0 [facility] Comment on above: Performed By: #### P RBC #### [facility] [address] [place] [address] Dr. Kayley Hatfield Creatinine [Mass/Vol] 0.90 mg/dL Normal 0.55-1.02 [facility] Comment on above: Performed By: #### P RBC #### [facility] [address] [place] [address] Dr. Kayley Hatfield EGFR-AF BURKINAN >60 Normal >=60 [facility] Comment on above: Performed By: #### P RBC #### [facility] [address] [place] [address] Dr. Kayley Hatfield EGFR-NON AF BURKINAN >60 Normal >=60 [facility] Comment on above: Performed By: #### P RBC #### [facility] [address] [address] [address] Kayley Hatfield Glucose [Mass/Vol] 161 mg/dL Critically high 74-106 [facility] Comment on above: Performed By: #### P RBC #### [facility] [address] [address] [address] Kayley Hatfield Potassium [Moles/Vol] 4.7 mmol/L Normal 3.5-5.1 [facility] Comment on above: Performed By: #### P RBC #### [facility] [address] [address] [address] Kayley Hatfield Sodium [Moles/Vol] 139 mmol/L Normal 136-145 [facility] Comment on above: Performed By: #### P RBC #### [facility] [address] [address] [address] Kayley Hatfield Urea nitrogen [Mass/Vol] 15.0 mg/dL Normal 7.0-18.0 [facility] Comment on above: Performed By: #### P RBC #### [facility] [address] [address] [address] Kayley Hatfield Urea nitrogen/Creatinine [Mass ratio] 16.7 mg/mg Normal [facility] Comment on above: Performed By: #### P RBC #### [facility] [address] [address] [address] Kayley Hatfield RETICULOCYTEon 03-28-2022 RETIC 4.65 % Critically high 0.60-3.10 The [facility] Comment on above: Performed By: #### L DH #### [facility] [address] [address] [address] Kayley Hatfield SED RATE WESTERGRENon 2021 SED RATE 12 mm/hr Normal <=30 [facility] Comment on above: Performed By: #### P RTELEC #### [facility] [address] [address] [address] Kayley Hatfield TSHon 03-28-2022 TSH 0.922 uIU/mL Normal 0.358-3.740 [facility] Comment on above: Performed By: #### P RBC #### [facility] [address] [place] [address] Dr. Kayley Hatfield TYPE AND SCREENon 03-28-2022 TYPE AND SCREEN Negative Normal [facility] Comment on above: Performed By: #### C VDTBH #### [facility] [address] [place] [address] Dr. Kayley Hatfield VIT B12 AND FOLATEon 022 Cobalamin (Vitamin B12) [Mass/Vol] 490.0 pg/mL Normal 193.0-986.0 [facility] Comment on above: Performed By: #### L DH #### [facility] [address] [place] [address] Dr. Kayley Hatfield FOLATE 14.00 ng/mL Normal 8.60-58.90 [facility] Comment on above: Performed By: #### L DH #### [facility] [address] [place] [address] Dr. Kayley Hatfield VITAMIN D 25 OHon 03-28-2022 VIT D 25-OH 41.5 ng/mL Normal [facility] Comment on above: Performed By: #### O BSCRN #### [facility] [address] [place] [address] Dr. Kayley Hatfield VIT D RANGES SEE BELOW Normal [facility] Comment on above: Result Comment: <20 ng/mL Vit D deficient 20 - <30 ng/mL Vit D insufficient 30 - 100 ng/mL Vit D sufficient >100 ng/mL Potential Toxicity Performed By: #### O BSCRN #### [facility] [address] [place] [address] Dr. Kayley Hatfield XR CHEST 1 Von [...] [facility] BASIC METABOLIC PANELon 09-0 Calcium [Mass/Vol] 8.9 mg/dL Normal 8.6-10.3 [facility] Comment on above: Order Comment: No: D o not add to previous draw Performed By: #### 3 5200, 31064, 61454, 24896 #### [facility] [address] [place] [address], [place] Chloride [Moles/Vol] 97 mmol/L Low 98-107 [facility] Comment on above: Order Comment: No: D o not add to previous draw Performed By: #### 3 5200, 35336, 05043, 32296 #### [facility] [address] [place] [address], [place] CO2 [Moles/Vol] 35 mmol/L High 21-31 [facility] Comment on above: Order Comment: No: D o not add to previous draw Performed By: #### 3 5200, 93437, 98366, 06205 #### [facility] [address] [place] [address], [place] Creatinine [Mass/Vol] 0.65 mg/dL Normal 0.60-1.20 [facility] Comment on above: Order Comment: No: D o not add to previous draw Performed By: #### 3 5200, 16279, 86869, 33549 #### [facility] [address] [place] [address], [facility] GFR/1.73 sq M.predicted among non-blacks MDRD (S/P/Bld) [Vol rate/Area] mL/min/{1.73_m2} Normal >60 [facility] Comment on above: Order Comment: No: D o not add to previous draw Result Comment: [facility]'s estimated glomerular filtration rate (eGFR) will no [...] of individuals. Performed By: #### 3 5200, 86327, 59773, 87591 #### [facility] [address] [place] [address], [place] Glucose [Mass/Vol] 161 mg/dL High 70-100 [facility] Comment on above: Order Comment: No: D o not add to previous draw Performed By: #### 3 0, 35614, 56417, 30771 #### [facility] [address] [place] [address], [place] Potassium [Moles/Vol] 3.9 mmol/L Normal 3.5-5.1 [facility] Comment on above: Order Comment: No: D o not add to previous draw Performed By: #### 3 0, 75419, 30178, 40819 #### [facility] [address] [place] [address], [place] Sodium [Moles/Vol] 136 mmol/L Normal 136-145 [facility] Comment on above: Order Comment: No: D o not add to previous draw Performed By: #### 3 0, 45869, 31812, 23756 #### [facility] [address] [place] [id number], [facility] Urea nitrogen [Mass/Vol] 16 mg/dL Normal 7-25 [facility] Comment on above: Order Comment: No: D o not add to previous draw Performed By: #### 3 5200, 57355, 79305, 00017 #### [facility] [address] [place] [address], [facility] CBC COMPLETE BLOOD COUNTon 0 03-15-2022 Hematocrit (Bld) [Volume fraction] 28.2 % Low 36.0-45.0 [facility] Comment on above: Order Comment: No: D o not add to previous draw Performed By: #### 3 5200 #### [facility] [address] [place] [address], [facility] Hemoglobin (Bld) [Mass/Vol] 8.3 g/dL Low 12.0-15.0 [facility] Comment on above: Order Comment: No: D o not add to previous draw Performed By: #### 3 5200 #### [facility] [address] [place] [address], [facility] MCH (RBC) [Entitic mass] 22.9 pg Low 27.0-33.0 [facility] Comment on above: Order Comment: No: D o not add to previous draw Performed By: #### 3 5200 #### [facility] [address] [place] [address], [facility] MCHC (RBC) [Mass/Vol] 29.4 g/dL Low 32.0-35.0 [facility] Comment on above: Order Comment: No: D o not add to previous draw Performed By: #### 3 5200 #### [facility] [address] [place] [address], [facility] MCV (RBC) [Entitic vol] 77.9 fL Low 82.0-98.0 [facility] Comment on above: Order Comment: No: D o not add to previous draw Performed By: #### 3 5200 #### [facility] [address] [place] [address], [facility] Nucleated RBC/100 WBC (Bld) [Ratio] 0 % Normal 0-0 [facility] Comment on above: Order Comment: No: D o not add to previous draw Performed By: #### 3 5200 #### [facility] [address] [place] [address], [facility] PLAT CNT 221 10*3/uL Normal 150-400 [facility] Comment on above: Order Comment: No: D o not add to previous draw Performed By: #### 3 5200 #### [facility] [address] [facility] [place] [address], [facility] RBC (Bld) [#/Vol] 3.62 10*6/uL Low 3.80-5.00 [facility] Comment on above: Order Comment: No: D o not add to previous draw Performed By: #### 3 5200 #### [facility] [address] [facility] [place] [place] [address], [facility] RDW ---- Normal 11.5-15.0 [facility] Comment on above: Order Comment: No: D o not add to previous draw Result Comment: Prev ious RDW was unable to be calculated Performed By: #### 3 5200 #### [facility] [address] [facility] [place] [place] [address], [facility] WBC (Bld) [#/Vol] 11.88 10*3/uL High 4.00-10.60 [facility] Comment on above: Order Comment: No: D o not add to previous draw Performed By: #### 3 5200 #### [facility] [address] [place] [address], [facility] POC GLUCOSE LABon 03-15-2022 Glucose [Mass/Vol] 109 mg/dL High 70-100 [facility] Comment on above: Performed By: #### 8 5499 ####[facility] [facility] [place] [address], [place] POC GLUCOSE LABon 03-14-2022 Glucose [Mass/Vol] 278 mg/dL High 70-100 [facility] Comment on above: Performed By: #### 8 5499 ####[facility] [facility] [place] [address], [place] Glucose [Mass/Vol] 195 mg/dL High 70-100 [facility] Comment on above: Performed By: #### 8 5499 ####[facility] [facility] [place] [address], [place] Glucose [Mass/Vol] 114 mg/dL High 70-100 [facility] Comment on above: Performed By: #### 8 5499 ####[facility] [facility] [place] [address], [place] Glucose [Mass/Vol] 113 mg/dL High 70-100 [facility] Comment on above: Performed By: #### 3 5200 #### [facility] [address] [facility] [place] [address], [facility] PORTABLE CHEST 1 VIEWon PORTABLE CHEST 1 VIEW [facility] Department of Radiology [address] [place] [address] Patient Name: LISE CANALES : 1955 Sex: F Age: Race: White Pt. Location: [id number] Patient Status: I Ordered Date: 03/14/2022 2:35:00 [...] chest. Electronically signed: Tyshawn Tapia. Transcribed by: [email or web address], User Resident: Electronically Signed by: TYSHAWN TAPIA @ 03/14/2022 03:31 PM Normal [facility] Comment on above: Order Comment: Check Chest Tube Position, S/P Chest tube DC'd PORTABLE CHEST 1 VIEW [facility] Department of Radiology [address] [place] [id number] Patient Name: LISE CANALES : 1955 Sex: F Age: Race: White Pt. Location: [address] [place] [address] Patient Status: I Ordered Date: 03/14/2022 6:50:00 [...] pneumothorax. Electronically signed: Tyshawn Tapia. Transcribed by: [email or web address], User Resident: Electronically Signed by: TYSHAWN TAPIA @ 03/14/2022 02:56 PM Normal [facility] Comment on above: Order Comment: Check Chest Tube Position, S/P Chest tube DC'd POC GLUCOSE LABon 03-13-2022 Glucose [Mass/Vol] 282 mg/dL High 70-100 [facility] Comment on above: Performed By: #### 8 5499 ####[facility] [facility] [place] [address], [place] Glucose [Mass/Vol] 163 mg/dL High 70-100 [facility] Comment on above: Performed By: #### 8 5499 ####[facility] [facility] [place] [address], [place] Glucose [Mass/Vol] 149 mg/dL High 70-100 [facility] Comment on above: Performed By: #### 3 5200 #### [facility] [address] [place] [address], [place] Glucose [Mass/Vol] 149 mg/dL High 70-100 [facility] Comment on above: Performed By: #### 8 5499 ####[facility] [facility] [facility] [place] [address] PORTABLE CHEST 1 VIEWon 090 PORTABLE CHEST 1 VIEW [facility] Department of Radiology [address] [place] [address] Patient Name: LISE CANALES : 1955 Sex: F Age: Race: White Pt. Location: [address] [place] [address] Patient Status: I Ordered Date: 03/13/2022 4:15:00 [...] morning Electronically signed: Avinash Mckay. Transcribed by: [email or web address], User Resident: Electronically Signed by: AVINASH MCKAY @ 03/13/2022 06:20 PM Normal [facility] Comment on above: Order Comment: Check Chest Tube Position, S/P Chest tube DC'd PORTABLE CHEST 1 VIEW [facility] Department of Radiology [address] [place] [id number] Patient Name: LISE CANALES : 1955 Sex: F Age: Race: White Pt. Location: [address] [place] [address] Patient Status: I Ordered Date: 03/13/2022 6:50:00 AM Completed Date: 03/13/2022 08:22 AM Requesting Provider: GAVIOTA POLANCO Attending Provider: OIL PINEDA Report Copy To: Signs & Symptoms: [...] congestion. Electronically signed: Tyshawn Tapia. Transcribed by: [email or web address], User Resident: Electronically Signed by: TYSHAWN TAPIA @ 03/13/2022 08:34 AM Normal [facility] Comment on above: Order Comment: Evalu ate for Aspiration POTASSIUM BLOODon 03-13-2022 Potassium [Moles/Vol] 4.5 mmol/L Normal 3.5-5.1 [facility] Comment on above: Order Comment: No: D o not add to previous draw Performed By: #### 3 5200 #### [facility] [address] [facility] BASIC METABOLIC PANELon Calcium [Mass/Vol] 9.4 mg/dL Normal 8.6-10.3 [facility] Comment on above: Order Comment: Check Chest Tube Position, S/P Chest tube DC'd Performed By: #### 0 0071 ####[facility] [facility] [place] [place] [address], [facility] Chloride [Moles/Vol] 98 mmol/L Normal 98-107 [facility] Comment on above: Order Comment: Check Chest Tube Position, S/P Chest tube DC'd Performed By: #### 0 0071 ####[facility] [place] [address], [facility] CO2 [Moles/Vol] 34 mmol/L High 21-31 [facility] Comment on above: Order Comment: Check Chest Tube Position, S/P Chest tube DC'd Performed By: #### 0 0071 ####[facility] [facility] [place] [place] [address], [facility] Creatinine [Mass/Vol] 0.56 mg/dL Low 0.60-1.20 [facility] Comment on above: Order Comment: Check Chest Tube Position, S/P Chest tube DC'd Performed By: #### 0 0071 ####[facility] [place] [address], [facility] GFR/1.73 sq M.predicted among non-blacks MDRD (S/P/Bld) [Vol rate/Area] mL/min/{1.73_m2} Normal >60 [facility] Comment on above: Order Comment: Check Chest Tube Position, S/P Chest tube DC'd Result Comment: [facility]'s estimated glomerular filtration rate (eGFR) will no [...] of individuals. Performed By: #### 0 0071 ####[facility]3000 [facility] [place] [place] [address], [facility] Glucose [Mass/Vol] 114 mg/dL High 70-100 [facility] Comment on above: Order Comment: Check Chest Tube Position, S/P Chest tube DC'd Performed By: #### 0 0071 ####[place] [address] [facility] [place] [place] [address], [facility] Potassium [Moles/Vol] 3.3 mmol/L Low 3.5-5.1 [facility] Comment on above: Order Comment: Check Chest Tube Position, S/P Chest tube DC'd Performed By: #### 0 0071 ####[facility] [facility] [place] [place] [address], [facility] Sodium [Moles/Vol] 140 mmol/L Normal 136-145 [facility] Comment on above: Order Comment: Check Chest Tube Position, S/P Chest tube DC'd Performed By: #### 0 0071 ####[facility] Urea nitrogen [Mass/Vol] 9 mg/dL Normal 7-25 [facility] Comment on above: Order Comment: Check Chest Tube Position, S/P Chest tube DC'd Performed By: #### 0 0071 ####[facility] [facility] CBC COMPLETE BLOOD COUNTon 0 03-12-2022 Hematocrit (Bld) [Volume fraction] 35.2 % Low 36.0-45.0 [facility] Comment on above: Order Comment: No: D o not add to previous draw Performed By: #### 3 5200 #### [facility] [address] [facility] [place] [address], [facility] Hemoglobin (Bld) [Mass/Vol] 10.1 g/dL Low 12.0-15.0 [facility] Comment on above: Order Comment: No: D o not add to previous draw Performed By: #### 3 5200 #### [facility] [address] [place] [address], [facility] IMM PLATELET FRAC 3.6 % Normal 0.8-6.3 [facility] Comment on above: Order Comment: No: D o not add to previous draw Performed By: #### 3 5200 #### [facility] [address] [place] [address], [facility] MCH (RBC) [Entitic mass] 21.9 pg Low 27.0-33.0 [facility] Comment on above: Order Comment: No: D o not add to previous draw Performed By: #### 3 5200 #### [facility] [address] [place] [id number], [facility] MCHC (RBC) [Mass/Vol] 28.7 g/dL Low 32.0-35.0 [facility] Comment on above: Order Comment: No: D o not add to previous draw Performed By: #### 3 5200 #### [facility] [address] [place] [address], [facility] MCV (RBC) [Entitic vol] 76.2 fL Low 82.0-98.0 [facility] Comment on above: Order Comment: No: D o not add to previous draw Performed By: #### 3 5200 #### [facility] [address] [place] [id number], [facility] Nucleated RBC/100 WBC (Bld) [Ratio] 0 % Normal 0-0 [facility] Comment on above: Order Comment: No: D o not add to previous draw Performed By: #### 3 5200 #### [facility] [address] [facility] [place] [address], [facility] PLAT CNT 129 10*3/uL Low 150-400 [facility] Comment on above: Order Comment: No: D o not add to previous draw Performed By: #### 3 5200 #### [facility] [address] [facility] [place] [address], [facility] RBC (Bld) [#/Vol] 4.62 10*6/uL Normal 3.80-5.00 [facility] Comment on above: Order Comment: No: D o not add to previous draw Performed By: #### 3 5200 #### [facility] [address] [facility] [place] [address], [facility] RDW Unable to Calculate Normal 11.5-15.0 [facility] Comment on above: Order Comment: No: D o not add to previous draw Performed By: #### 3 5200 #### [facility] [address] [facility] [place] [id number], [facility] WBC (Bld) [#/Vol] 11.72 10*3/uL High 4.00-10.60 [facility] Comment on above: Order Comment: No: D o not add to previous draw Performed By: #### 3 5200 #### [facility] [address] [place] [address], [place] POC GLUCOSE LABon 03-12-2022 Glucose [Mass/Vol] 252 mg/dL High 70-100 [facility] Comment on above: Performed By: #### 3 5200 #### [facility] [address] [facility] [place] [address], [facility] POC GLUCOSE LABon 03-11-2022 Glucose [Mass/Vol] 121 mg/dL High 70-100 [facility] Comment on above: Performed By: #### 8 5499 ####[facility]3000 [facility] [place] [address], [place] Glucose [Mass/Vol] 122 mg/dL High 70-100 [facility] Comment on above: Performed By: #### 3 5200 #### [facility] [address] [facility] [place] [address], [facility] Glucose [Mass/Vol] 86 mg/dL Normal 70-100 [facility] Comment on above: Performed By: #### 3 5200 #### [facility] [address] [facility] [place] [address], [facility] PORTABLE CHEST 1 VIEWon PORTABLE CHEST 1 VIEW [facility] Department of Radiology [address] [place] [id number] Patient Name: LISE ACNALES : 1955 Sex: F Age: Race: White Pt. Location: [id number] Patient Status: I Ordered Date: 03/11/2022 3:25:00 [...] abnormalities Electronically signed: Avinash Mckay. Transcribed by: [email or web address], User Resident: Electronically Signed by: AVINASH MCKAY @ 03/11/2022 06:30 PM Normal [facility] Comment on above: Order Comment: Evalu ate for Atelectasis CBC COMPLETE BLOOD COUNTon 0 03-10-2022 Erythrocyte distribution width (RBC) [Ratio] 29.9 % High 11.5-15.0 [facility] Comment on above: Order Comment: No: D o not add to previous draw Performed By: #### 3 6594 #### [facility] [address] [facility] [place] [address], [facility] Hematocrit (Bld) [Volume fraction] 32.2 % Low 36.0-45.0 [facility] Comment on above: Order Comment: No: D o not add to previous draw Performed By: #### 3 3190 #### [facility] [address] [place] [address], [facility] Hemoglobin (Bld) [Mass/Vol] 9.2 g/dL Low 12.0-15.0 [facility] Comment on above: Order Comment: No: D o not add to previous draw Performed By: #### 3 7930 #### [facility] [address] [place] [address], [facility] IMM PLATELET FRAC 3.4 % Normal 0.8-6.3 [facility] Comment on above: Order Comment: No: D o not add to previous draw Performed By: #### 3 5200 #### [facility] [address] [place] [id number], [facility] MCH (RBC) [Entitic mass] 21.9 pg Low 27.0-33.0 [facility] Comment on above: Order Comment: No: D o not add to previous draw Performed By: #### 3 5200 #### [facility] [address] [facility] [place] [address], [facility] MCHC (RBC) [Mass/Vol] 28.6 g/dL Low 32.0-35.0 [facility] Comment on above: Order Comment: No: D o not add to previous draw Performed By: #### 3 5200 #### [facility] [address] [place] [address], [facility] MCV (RBC) [Entitic vol] 76.7 fL Low 82.0-98.0 [facility] Comment on above: Order Comment: No: D o not add to previous draw Performed By: #### 3 5200 #### [facility] [address] [facility] [place] [address], [facility] Nucleated RBC/100 WBC (Bld) [Ratio] 0 % Normal 0-0 [facility] Comment on above: Order Comment: No: D o not add to previous draw Performed By: #### 3 5200 #### [facility] [address] [facility] [place] [address], [facility] PLAT CNT 124 10*3/uL Low 150-400 [facility] Comment on above: Order Comment: No: D o not add to previous draw Performed By: #### 3 5200 #### [facility] 3000 [place] [address], [facility] RBC (Bld) [#/Vol] 4.20 10*6/uL Normal 3.80-5.00 [facility] Comment on above: Order Comment: No: D o not add to previous draw Performed By: #### 3 5200 #### [facility] [address] [place] [address], [place] WBC (Bld) [#/Vol] 12.68 10*3/uL High 4.00-10.60 [facility] Comment on above: Order Comment: No: D o not add to previous draw Performed By: #### 3 5200 #### [facility] [address] [place] [address], [facility] HEMOGLOBIN A1Con 03-10-2022 Glucose [Moles/Vol] 143 mmol/L Normal [facility] Comment on above: Order Comment: No: D o not add to previous draw Result Comment: Resu lt changed by BSHORT on 03/10/2022 13:15. The previous value was 140. Performed By: #### 3 1791 #### [facility] [address] [place] [address], [facility] HbA1c (Bld) [Mass fraction] 6.6 % High 4.0-6.0 [facility] Comment on above: Order Comment: No: D o not add to previous draw Result Comment: Resu lt changed by BSHORT on 03/10/2022 13:15. The previous value was 6.5. Performed By: #### 3 1791 #### [facility] [address] [place] [address], [facility] POC GLUCOSE LABon 03-10-2022 Glucose [Mass/Vol] 107 mg/dL High 70-100 [facility] Comment on above: Performed By: #### 3 5200 #### [facility] [address] [place] [address], [place] Glucose [Mass/Vol] 100 mg/dL Normal 70-100 [facility] Comment on above: Performed By: #### 8 5499 ####[facility] [place] [address], [facility] Glucose [Mass/Vol] 147 mg/dL High 70-[address] [facility] Comment on above: Performed By: #### 8 5499 ####[facility] [facility] [place] [address], [facility] Glucose [Mass/Vol] 65 mg/dL Low 70-100 [facility] Comment on above: Performed By: #### 8 5499 ####[facility] [place] [address], [facility] PORTABLE CHEST 1 VIEWon PORTABLE CHEST 1 VIEW [facility] Department of Radiology [address] [place] [id number] Patient Name: LISE CANALES : 1955 Sex: F Age: Race: White Pt. Location: [address] [place] [address] Patient Status: I Ordered Date: 03/10/2022 7:40:00 [...] recommended. Electronically signed: Derek Ingram. Transcribed by: [email or web address], User Resident: Electronically Signed by: DEREK INGRAM @ 03/10/2022 12:10 PM Normal [facility] Comment on above: Order Comment: No: D o not add to previous draw *URINE CULTUREon 03-09-2022 *URINE CULTURE Clinical Report: (D) Specimen/Source: URINE/CLEAN VOID URINE Collected: 03/09/2022 01:58 Status: Final Last Updated: 03/10/2022 08:51 ISO (Final) 50,000 - 100,000 Cfu/mL Mixed Lexi: Multiple Organisms present suggest contamination. Suggest Repeat Specimen Normal [facility] Comment on above: Performed By: #### 3 0339 ####[facility] CBC W/DIFFon 03-09-2022 ABS IMM GRANS 0.1 10*3/uL Normal 0.0-0.2 [facility] Comment on above: Order Comment: Check Chest Tube Position, S/P Chest tube DC'd Performed By: #### 5 0103 ####[facility] [facility] [place] [place] [address], [facility] ABS NEUTROPHILS 13.3 10*3/uL High 1.6-7.6 [facility] Comment on above: Order Comment: Check Chest Tube Position, S/P Chest tube DC'd Performed By: #### 5 0103 ####[facility]3000 [facility].[address] ANISO Moderate Normal [facility] Comment on above: Order Comment: Check Chest Tube Position, S/P Chest tube DC'd Performed By: #### 5 0103 ####[facility]3000 [facility].[address] Basophils (Bld) [#/Vol] 0.0 10*3/uL Normal 0.0-0.2 [facility] Comment on above: Order Comment: Check Chest Tube Position, S/P Chest tube DC'd Performed By: #### 5 0103 ####[facility] Basophils/100 WBC (Bld) 0.3 % Normal 0.0-1.0 [facility] Comment on above: Order Comment: Check Chest Tube Position, S/P Chest tube DC'd Performed By: #### 5 0103 ####[facility] [place] [address], [facility] Eosinophils (Bld) [#/Vol] 0.1 10*3/uL Normal 0.0-0.5 [facility] Comment on above: Order Comment: Check Chest Tube Position, S/P Chest tube DC'd Performed By: #### 5 0103 ####[facility] [facility] [place] [address], [facility] Eosinophils/100 WBC (Bld) 0.5 % Normal 0.0-6.0 [facility] Comment on above: Order Comment: Check Chest Tube Position, S/P Chest tube DC'd Performed By: #### 5 0103 ####[facility] Erythrocyte distribution width (RBC) [Ratio] 28.7 % High 11.5-15.0 [facility] Comment on above: Order Comment: Check Chest Tube Position, S/P Chest tube DC'd Performed By: #### 5 0103 ####[facility] Hematocrit (Bld) [Volume fraction] 29.1 % Low 36.0-45.0 [facility] Comment on above: Order Comment: Check Chest Tube Position, S/P Chest tube DC'd Performed By: #### 5 3 ####[facility] Hemoglobin (Bld) [Mass/Vol] 8.3 g/dL Low 12.0-15.0 [facility] Comment on above: Order Comment: Check Chest Tube Position, S/P Chest tube DC'd Performed By: #### 5 3 ####[place] [id number] [address] HYPO Slight Normal [facility] Comment on above: Order Comment: Check Chest Tube Position, S/P Chest tube DC'd Performed By: #### 5 3 ####[facility] IMMATURE GRANS 0.5 % Normal 0.0-1.0 [facility] Comment on above: Order Comment: Check Chest Tube Position, S/P Chest tube DC'd Performed By: #### 5 3 ####[address] Lymphocytes (Bld) [#/Vol] 0.8 10*3/uL Low 1.2-4.0 [facility] Comment on above: Order Comment: Check Chest Tube Position, S/P Chest tube DC'd Performed By: #### 5 0103 ####[facility] Lymphocytes/100 WBC (Bld) 5.5 % Low 20.0-45.0 [facility] Comment on above: Order Comment: Check Chest Tube Position, S/P Chest tube DC'd Performed By: #### 0103 ####[facility] MCH (RBC) [Entitic mass] 21.7 pg Low 27.0-33.0 [facility] Comment on above: Order Comment: Check Chest Tube Position, S/P Chest tube DC'd Performed By: #### 5 3 ####[facility] MCHC (RBC) [Mass/Vol] 28.5 g/dL Low 32.0-35.0 [facility] Comment on above: Order Comment: Check Chest Tube Position, S/P Chest tube DC'd Performed By: #### 5 0103 ####[facility] MCV (RBC) [Entitic vol] 76.2 fL Low 82.0-98.0 [facility] Comment on above: Order Comment: Check Chest Tube Position, S/P Chest tube DC'd Performed By: #### 5 0103 ####[facility] Monocytes (Bld) [#/Vol] 1.1 10*3/uL High 0.1-1.0 [facility] Comment on above: Order Comment: Check Chest Tube Position, S/P Chest tube DC'd Performed By: #### 5 3 ####[facility] MONOS 7.3 % Normal 5.0-12.0 [facility] Comment on above: Order Comment: Check Chest Tube Position, S/P Chest tube DC'd Performed By: #### 5 0103 ####[facility] [place] [address], [facility] Neutrophils/100 WBC (Bld) 85.9 % High 40.0-72.0 [facility] Comment on above: Order Comment: Check Chest Tube Position, S/P Chest tube DC'd Performed By: #### 5 0103 ####[facility] [place] [address], [facility] Nucleated RBC/100 WBC (Bld) [Ratio] 0 % Normal 0-0 [facility] Comment on above: Order Comment: Check Chest Tube Position, S/P Chest tube DC'd Performed By: #### 5 0103 ####[facility] [facility] [place] [address], [facility] PLAT CNT 149 10*3/uL Low 150-400 [facility] Comment on above: Order Comment: Check Chest Tube Position, S/P Chest tube DC'd Performed By: #### 5 0103 ####[facility] [facility] [place] [address], [facility] POIK Slight Normal [facility] Comment on above: Order Comment: Check Chest Tube Position, S/P Chest tube DC'd Performed By: #### 5 0103 ####[facility] [facility] [place] [address], [facility] POLY Slight Normal [facility] Comment on above: Order Comment: Check Chest Tube Position, S/P Chest tube DC'd Performed By: #### 5 0103 ####[facility] [place] [address], [facility] RBC (Bld) [#/Vol] 3.82 10*6/uL Normal 3.80-5.00 [facility] Comment on above: Order Comment: Check Chest Tube Position, S/P Chest tube DC'd Performed By: #### 5 0103 ####[facility] [place] [address], [facility] WBC (Bld) [#/Vol] 15.41 10*3/uL High 4.00-10.60 [facility] Comment on above: Order Comment: Check Chest Tube Position, S/P Chest tube DC'd Performed By: #### 5 0103 ####[facility] [place] [address], [facility] COMP METABOLIC PANELon 03-09 Albumin [Mass/Vol] 3.8 g/dL Normal 3.5-5.7 [facility] Comment on above: Order Comment: No: D o not add to previous draw Performed By: #### 3 5200, 38559, 67233, 73330 #### [facility] [address] [place] [address], [place] ALKALINE PHOSPH 52 IU/L Normal 34-104 [facility] Comment on above: Order Comment: No: D o not add to previous draw Performed By: #### 3 5200, 34998, 49832, 51846 #### [facility] [address] [place] [address], [place] ALT [Catalytic activity/Vol] 13 U/L Normal 7-52 [facility] Comment on above: Order Comment: No: D o not add to previous draw Performed By: #### 3 5200, 61992, 76610, 77936 #### [facility] [address] [place] [address], [place] AST [Catalytic activity/Vol] 14 U/L Normal 13-39 [facility] Comment on above: Order Comment: No: D o not add to previous draw Performed By: #### 3 5200, 16904, 24500, 89820 #### [facility] [address] [place] [address], [place] Bilirubin [Mass/Vol] 0.4 mg/dL Normal 0.3-1.0 [facility] Comment on above: Order Comment: No: D o not add to previous draw Performed By: #### 3 5200, 11509, 07495, 24692 #### [facility] [address] [place] [address], [place] Calcium [Mass/Vol] 9.2 mg/dL Normal 8.6-10.3 [facility] Comment on above: Order Comment: No: D o not add to previous draw Performed By: #### 3 5200, 16049, 96564, 73161 #### [facility] [address] [place] [address], [place] Chloride [Moles/Vol] 99 mmol/L Normal 98-107 [facility] Comment on above: Order Comment: No: D o not add to previous draw Performed By: #### 3 5200, 92393, 72991, 52826 #### [facility] [address] [place] [address], [place] CO2 [Moles/Vol] 33 mmol/L High 21-31 [facility] Comment on above: Order Comment: No: D o not add to previous draw Performed By: #### 3 5200, 51394, 20225, 54061 #### [facility] [address] [place] [address], [place] Creatinine [Mass/Vol] 0.79 mg/dL Normal 0.55-1.02 [facility] Comment on above: Order Comment: No: D o not add to previous draw Performed By: #### 3 5200, 24281, 12906, 11429 #### [facility] [address] [place] [address], [place] Performed By: #### B LDCX1 #### [facility] [address] [place] [address] Dr. Kayley Hatfield GFR/1.73 sq M.predicted among non-blacks MDRD (S/P/Bld) [Vol rate/Area] mL/min/{1.73_m2} Normal >60 [facility] Comment on above: Order Comment: No: D o not add to previous draw Result Comment: [facility]'s estimated glomerular filtration rate (eGFR) will no [...] of individuals. Performed By: #### 3 5200, 86193, 20325, 16467 #### [facility] [address] [place] [address], [place] Glucose [Mass/Vol] 125 mg/dL High 70-100 [facility] Comment on above: Order Comment: No: D o not add to previous draw Performed By: #### 3 0, 51718, 89824, 20636 #### [facility] [address] [place] [address], [place] Potassium [Moles/Vol] 4.7 mmol/L Normal 3.5-5.1 [facility] Comment on above: Order Comment: No: D o not add to previous draw Performed By: #### 3 5200, 40149, 32733, 51783 #### [facility] [address] [place] [address], [place] Protein [Mass/Vol] 5.9 g/dL Low 6.0-8.3 [facility] Comment on above: Order Comment: No: D o not add to previous draw Performed By: #### 3 5200, 59447, 90849, 53214 #### [facility] [address] [place] [address], [place] Sodium [Moles/Vol] 136 mmol/L Normal 136-145 [facility] Comment on above: Order Comment: No: D o not add to previous draw Performed By: #### 3 5200, 88861, 92233, 68862 #### [facility] [address] [place] [address], [facility] Urea nitrogen [Mass/Vol] 12 mg/dL Normal 7-25 [facility] Comment on above: Order Comment: No: D o not add to previous draw Performed By: #### 3 5200, 31264, 59518, 04548 #### [facility] [address] [place] [address], [facility] LIPID PROFILEon 03-09-2022 Cholesterol [Mass/Vol] 160 mg/dL Normal 120-200 [facility] Comment on above: Order Comment: No: D o not add to previous draw Result Comment: CHOL ESTEROL REFERENCE RANGE: 20 YEARS AND OLDER CARDIOVASCULAR RISK Less than 200 mg/dl Low Risk 200 to 239 mg/dl Borderline Risk 240 mg/dl and greater High Risk Performed By: #### 3 5200, 74049, 82445, 14810 #### [facility] [address] [place] [address], [facility] Cholesterol in HDL [Mass/Vol] 76 mg/dL Normal 23-92 [facility] Comment on above: Order Comment: No: D o not add to previous draw Result Comment: Slig ht variation in normal range could be due to gender and/or age. HDL CHOLESTEROL REFERENCE RANGE: 20 years and older Cardiovascular Risk > or =60 mg/dL Desirable 40 TO 59 mg/dL Low Risk <40 mg/dL High Risk Performed By: #### 3 5200, 88839, 62477, 79578 #### [facility] [address] [place] [address], [facility] Cholesterol in LDL [Mass/Vol] 48 mg/dL Normal 0-130 [facility] Comment on above: Order Comment: No: D o not add to previous draw Result Comment: LDL IS A CALCULATION LDL IS ONLY VALID IF THE TRIG IS LESS THAN 400. Performed By: #### 3 5200, 90056, 36042, 04474 #### [facility] [address] [place] [address], [facility] Cholesterol.total/Cho lesterol in HDL [Mass ratio] 2.1 {ratio} Normal .0-4.5 [facility] Comment on above: Order Comment: No: D o not add to previous draw Performed By: #### 3 5200, 23707, 21883, 28187 #### [facility] [address] [place] [address], [facility] NON-HDL CHOLESTEROL 84 mg/dL Normal [facility] Comment on above: Order Comment: No: D o not add to previous draw Performed By: #### 3 5200, 86122, 67047, 20006 #### [facility] [address] [place] [address], [facility] Triglyceride [Mass/Vol] 179 mg/dL High 40-149 [facility] Comment on above: Order Comment: No: D o not add to previous draw Result Comment: TRIG LYCERIDE REFERENCE RANGE: 20 YEARS AND OLDER CARDIOVASCULAR RISK LESS THAN 150 mg/dl LOW RISK 150 TO 199 mg/dl BORDERLINE RISK 200 mg/dl AND GREATER HIGH RISK Performed By: #### 3 5200, 84862, 90281, 62629 #### [facility] [address] [place] [address], [facility] VLDL CHOL 36 mg/dL Normal 0-40 [facility] Comment on above: Order Comment: No: D o not add to previous draw Performed By: #### 3 5200, 61203, 00169, 36284 #### [facility] [address] [place] [address], [facility] POC GLUCOSE LABon 03-09-2022 Glucose [Mass/Vol] 105 mg/dL High 70-100 [facility] Comment on above: Performed By: #### 8 5499 ####[facility] POC SARS COV2 ANTIGEN NEGATI VEon 03-09-2022 POC SARS COV2 ANTIGEN NEG Negative Normal NEGATIVE [facility] Comment on above: Result Comment: Nega tive [...] antigen from SARS-CoV-2 in direct nasopharyngeal swab (ROD PLACER) specimens from individuals who are suspected of [...] Accreditation. Performed By: #### 3 2044 ####[address] PORTABLE CHEST 1 VIEWon PORTABLE CHEST 1 VIEW [facility] Department of Radiology [address] [place] [id number] Patient Name: LISE CANALES : 1955 Sex: F Age: Race: White Pt. Location: [id number] Patient Status: I Ordered Date: 03/09/2022 8:55:00 [...] COPD. Electronically signed: Derek Ingram. Transcribed by: [email or web address], User Resident: Electronically Signed by: DEREK INGRAM @ 03/09/2022 02:48 PM Normal [facility] Comment on above: Order Comment: Check Chest Tube Position, S/P Chest tube DC'd TROPONIN-Ion 03-09-2022 Troponin I.cardiac [Mass/Vol] 0.00 ng/mL Normal 0.00-0.[address] [facility] Comment on above: Order Comment: No: D o not add to previous draw Result Comment: REFE RENCE RANGES: 0.00 - 0.04 ng/ml NORMAL 0.05 - 0.50 ng/ml INDETERMINATE > 0.50 ng/ml CONSISTENT WITH AN M.I. Performed By: #### 3 5200, 03946, 01579, 84176 #### [facility] [address] Troponin I.cardiac [Mass/Vol] 0.01 ng/mL Normal 0.00-0.04 [facility] Comment on above: Order Comment: No: D o not add to previous draw Result Comment: REFE RENCE RANGES: 0.00 - 0.04 ng/ml NORMAL 0.05 - 0.50 ng/ml INDETERMINATE > 0.50 ng/ml CONSISTENT WITH AN M.I. Performed By: #### 3 5200 #### [facility] [address] Troponin I.cardiac [Mass/Vol] 0.00 ng/mL Normal 0.00-0.04 [facility] Comment on above: Order Comment: No: D o not add to previous draw Result Comment: REFE RENCE RANGES: 0.00 - 0.04 ng/ml NORMAL 0.05 - 0.50 ng/ml INDETERMINATE > 0.50 ng/ml CONSISTENT WITH AN M.I. Performed By: #### 3 5200, 13360, 87052, 69689 #### [facility] [address] TSH3 WITH REFLEX FT4on 03-09 TSH 3RD GENERATION 0.60 uIU/mL Normal 0.34-5.60 [facility] Comment on above: Order Comment: No: D o not add to previous draw Performed By: #### 3 5200, 48004, 09800, 18039 #### [facility] [address] URINALYSIS REFLEXon 03-09-20 Appearance (U) CLEAR Normal CLEAR [facility] Comment on above: Order Comment: Check Chest Tube Position, S/P Chest tube DC'd Performed By: #### 3 0965 ####[facility] [place] [address], [facility] Bilirubin Ql (U) Negative Normal NEGATIVE [facility] Comment on above: Order Comment: Check Chest Tube Position, S/P Chest tube DC'd Performed By: #### 3 0965 ####[facility] [place] [address], [facility] Color (U) STRAW Abnormal YELLOW [facility] Comment on above: Order Comment: Check Chest Tube Position, S/P Chest tube DC'd Performed By: #### 3 0965 ####[facility] [facility] [place] [address], [facility] EPIS OCC Normal FEW,OCC,NONE SEEN [facility] Comment on above: Order Comment: Check Chest Tube Position, S/P Chest tube DC'd Performed By: #### 3 0965 ####[facility] [place] [address], [place] Glucose Ql (U) Negative Normal NEGATIVE [facility] Comment on above: Order Comment: Check Chest Tube Position, S/P Chest tube DC'd Performed By: #### 3 0965 ####[facility] [place] [address], [place] Hemoglobin Ql (U) MODERATE Abnormal NEGATIVE [facility] Comment on above: Order Comment: Check Chest Tube Position, S/P Chest tube DC'd Performed By: #### 3 0965 ####[facility] [place] [address], [place] KETONE Negative Normal NEGATIVE [facility] Comment on above: Order Comment: Check Chest Tube Position, S/P Chest tube DC'd Performed By: #### 3 0965 ####[facility] [place] [address], [place] LEUK SHARMIN SMALL Abnormal NEGATIVE [facility] Comment on above: Order Comment: Check Chest Tube Position, S/P Chest tube DC'd Performed By: #### 3 0965 ####[facility] MUCUS THREADS OCC Abnormal NONE SEEN [facility] Comment on above: Order Comment: Check Chest Tube Position, S/P Chest tube DC'd Performed By: #### 3 0965 ####[facility] Nitrite Ql (U) Negative Normal NEGATIVE [facility] Comment on above: Order Comment: Check Chest Tube Position, S/P Chest tube DC'd Performed By: #### 3 0965 ####[address] pH (U) 6.0 [pH] Normal 5.0-8.0 [facility] Comment on above: Order Comment: Check Chest Tube Position, S/P Chest tube DC'd Performed By: #### 3 0965 ####[place] [address] [address] Protein Ql (U) Negative Normal NEGATIVE [facility] Comment on above: Order Comment: Check Chest Tube Position, S/P Chest tube DC'd Performed By: #### 3 0965 ####[place] [address] [address] RBC 6-10 Abnormal NONE SEEN [facility] Comment on above: Order Comment: Check Chest Tube Position, S/P Chest tube DC'd Performed By: #### 3 0965 ####[address] SPEC GRAV 1.015 Normal 1.015-1.020 [facility] Comment on above: Order Comment: Check Chest Tube Position, S/P Chest tube DC'd Performed By: #### 3 0965 ####[facility] [place] [address], [facility] WBC UA 11-20 Abnormal NONE SEEN [facility] Comment on above: Order Comment: Check Chest Tube Position, S/P Chest tube DC'd Performed By: #### 3 0965 ####[facility] [facility] [place] [address], [facility] CBC W MANUAL DIFFon 03-08-20 22 ATYPICAL LYMPH # Normal [facility] Comment on above: Performed By: #### C VDTBH #### [facility] [address] [place] [address] Dr. Kayley Hatfield ATYPICAL LYMPH % Normal [facility] Comment on above: Performed By: #### C VDTBH #### [facility] [address] [place] [address] Dr. Kayley Hatfield BAND # Normal 0.0-0.3 [facility] Comment on above: Performed By: #### C VDTBH #### [facility] [address] [place] [address] Dr. Kayley Hatfield BAND % Normal 0-5 [facility] Comment on above: Performed By: #### C VDTBH #### [facility] [address] [place] [address] Dr. Kayley Hatfield BASOM # 0.00 103/ul Normal 0.00-0.10 [facility] Comment on above: Performed By: #### C VDTBH #### [facility] [address] [place] [address] Dr. Kayley Hatfield BASOM % 0.0 % Critically low 0.2-2.0 [facility] Comment on above: Performed By: #### C VDTBH #### [facility] [address] [place] [address] Dr. Kayley Hatfield BLAST # Normal [facility] Comment on above: Performed By: #### C VDTBH #### [facility] [address] [place] [address] Dr. Kayley Hatfield BLAST % Normal [facility] Comment on above: Performed By: #### C VDTBH #### [facility] [address] [address] [address] Kayley Hatfield CORRECTED WBC Normal 4.0-11.0 [facility] Comment on above: Performed By: #### C VDTBH #### [facility] [address] [address] [address] Kayley Hatfield EOS # 0.14 103/ul Normal 0.00-0.70 [facility] Comment on above: Performed By: #### C VDTBH #### [facility] [address] [place] [address] Dr. Kayley Hatfield EOS% 1.0 % Normal 0.9-7.0 [facility] Comment on above: Performed By: #### C VDTBH #### [facility] [address] [place] [address] Dr. Kayley Hatfield HCT 27.5 % Critically low 36.0-48.0 [facility] Comment on above: Performed By: #### C VDTBH #### [facility] [address] [place] [address] Dr. Kayley Hatfield HGB 7.9 g/dl Critically low 12.0-16.0 [facility] Comment on above: Performed By: #### C VDTBH #### [facility] [address] [place] [address] Dr. Kayley Hatfield LYMPHM # 1.42 103/ul Normal 1.20-3.80 [facility] Comment on above: Performed By: #### C VDTBH #### [facility] [address] [place] [address] Dr. Kayley Hatfield LYMPHM% 10.0 % Critically low 20.5-60.0 [facility] Comment on above: Performed By: #### C VDTBH #### [facility] [address] [place] [address] Dr. Kayley Hatfield MCH 21.5 pg Critically low 26.7-34.0 [facility] Comment on above: Performed By: #### C VDTBH #### [facility] [address] [place] [address] Dr. Kayley Hatfield MCHC 28.7 g/dl Critically low 29.9-35.2 [facility] Comment on above: Performed By: #### C VDTBH #### [facility] [address] [place] [address] Dr. Kayley Hatfield MCV 74.7 fL Critically low 81.0-99.0 [facility] Comment on above: Performed By: #### C VDTBH #### [facility] [address] [place] [address] [address] Kayley Hatfield METAMYELOCYTE # Normal [facility] Comment on above: Performed By: #### C VDTBH #### [facility] [address] [place] [address] Dr. Kayley Hatfield METAMYELOCYTE % Normal [facility] Comment on above: Performed By: #### C VDTBH #### [facility] [address] [place] [address] Dr. Kayley Hatfield MONOM# 2.13 103/ul Critically high 0.30-0.80 [facility] Comment on above: Performed By: #### C VDTBH #### [facility] [address] [place] [address] Dr. Kayley Hatfield MONOM% 15.0 % Critically high 1.7-12.0 [facility] Comment on above: Performed By: #### C VDTBH #### [facility] [address] [place] [address] Dr. Kayley Hatfield MPV 9.5 fL Normal 9.5-13.5 [facility] Comment on above: Performed By: #### C VDTBH #### [facility] [address] [place] [address] Dr. Kayley Hatfield MYELOCYTE # Normal [facility] Comment on above: Performed By: #### C VDTBH #### [facility] [address] [place] [address] Dr. Kayley Hatfield MYELOCYTE % Normal [facility] Comment on above: Performed By: #### C VDTBH #### [facility] [address] [place] [address] [address] Kayley Hatfield NRBC Normal [facility] Comment on above: Performed By: #### C VDTBH #### [facility] [address] [address] [address] Kayley Hatfield PLT 180 103/ul Normal 150-450 [facility] Comment on above: Performed By: #### C VDTBH #### [facility] [address] [address] [address] Kayley Hatfield RBC 3.68 106/ul Critically low 4.20-5.40 [facility] Comment on above: Performed By: #### C VDTBH #### [facility] [address] [place] [address] Dr. Kayley Hatfield RDW 27.5 % Critically high 11.0-15.0 [facility] Comment on above: Performed By: #### C VDTBH #### [facility] [address] [place] [address] Dr. Kayley Hatfield SEG # 10.51 103/ul Critically high 1.40-6.50 [facility] Comment on above: Performed By: #### C VDTBH #### [facility] [address] [place] [address] Dr. Kayley Hatfield SEG % 74.0 % Normal 43.0-75.0 [facility] Comment on above: Performed By: #### C VDTBH #### [facility] [address] [address] [address] Kayley Hatfield WBC 14.2 103/ul Critically high 4.0-11.0 [facility] Comment on above: Performed By: #### C VDTBH #### [facility] [address] [place] [address] Dr. Kayley Hatfield PRBC LEUKOREDUCEDon 03-08-20 22 ABO and Rh group Nom (Bld) Cross Match Result Compatible Unit Blood Type O Pos Unit Number [id number] Status Information Transfused Product ID Red Blood Cells Product Code [id number] Cross Match Result Compatible Blood Bank Notes CALLED TO VIC IN ICU @1657 Unit Blood Type O Pos Unit Number [id number] Status Information Transfused Product ID Red Blood Cells Product Code [id number] Normal [facility] Comment on above: Performed By: #### P RBC #### [facility] [address] [place] [address] Dr. Kayley Hatfield PROF CHEM 8 (BAS METB)on Anion gap [Moles/Vol] 10.1 mmol/L Normal [facility] Comment on above: Performed By: #### B LDCX1 #### [facility] [address] [place] [address] Dr. Kayley Hatfield Calcium [Mass/Vol] 8.8 mg/dL Normal 8.5-10.1 [facility] Comment on above: Performed By: #### B LDCX1 #### [facility] [address] [place] [address] Dr. Kayley Hatfield Chloride [Moles/Vol] 100 mmol/L Normal 98-107 [facility] Comment on above: Performed By: #### B LDCX1 #### [facility] [address] [place] [address] Dr. Kayley Hatfield CO2 [Moles/Vol] 34.2 mmol/L Critically high 21.0-32.0 [facility] Comment on above: Performed By: #### B [id number] #### [facility] [address] [place] [address] Dr. Kayley Hatfield EGFR-AF BURKINAN >60 Normal >=60 [facility] Comment on above: Performed By: #### B LDCX1 #### [facility] [address] [place] [address] Dr. Kayley Hatfield EGFR-NON AF BURKINAN >60 Normal >=60 [facility] Comment on above: Performed By: #### B LDCX1 #### [facility] [address] [place] [address] Dr. Kayley Hatfield Glucose [Mass/Vol] 107 mg/dL Critically high 74-106 [facility] Comment on above: Performed By: #### B LDCX1 #### [facility] [address] [place] [address] Dr. Kayley Hatfield Potassium [Moles/Vol] 4.3 mmol/L Normal 3.5-5.1 [facility] Comment on above: Performed By: #### B LDCX1 #### [facility] [address] [address] [address] Kayley Hatfield Sodium [Moles/Vol] 140 mmol/L Normal 136-145 [facility] Comment on above: Performed By: #### B LDCX1 #### [facility] [address] [address] [address] Kayley Hatfield Urea nitrogen [Mass/Vol] 15.0 mg/dL Normal 7.0-18.0 [facility] Comment on above: Performed By: #### B LDCX1 #### [facility] [address] [address] [address] Kayley Hatfield Urea nitrogen/Creatinine [Mass ratio] 19.0 mg/mg Normal [facility] Comment on above: Performed By: #### B LDCX1 #### [facility] [address] [place] [address] Dr. Kayley Hatfield XR CHEST 1 Von [...] #### [facility] [address] [address] [address] Kayley Hatfield ANISOCYTOSIS 2+ Normal [facility] Comment on above: Performed By: #### B LDCX1 #### [facility] [address] [address] [address] Kayley Hatfield ATYPICAL LYMPH # Normal [facility] Comment on above: Performed By: #### B LDCX1 #### [facility] [address] [place] [address] Dr. Kayley Hatfield ATYPICAL LYMPH % Normal [facility] Comment on above: Performed By: #### B LDCX1 #### [facility] [address] [place] [address] Dr. Kayley Hatfield BAND # 0.0 103/ul Normal 0.0-0.3 [facility] Comment on above: Performed By: #### B LDCX1 #### [facility] [address] [place] [address] Dr. Kayley Hatfield BAND % 0 % Normal 0-5 [facility] Comment on above: Performed By: #### B LDCX1 #### [facility] [address] [place] [address] Dr. Kayley Hatfield BASOM # 0.00 103/ul Normal 0.00-0.10 [facility] Comment on above: Performed By: #### B LDCX1 #### [facility] [address] [place] [address] Dr. Kayley Hatfield BASOM % 0.0 % Critically low 0.2-2.0 [facility] Comment on above: Performed By: #### B LDCX1 #### [facility] [address] [place] [address] Dr. Kayley Hatfield BLAST # Normal [facility] Comment on above: Performed By: #### B LDCX1 #### [facility] [address] [place] [address] Dr. Kayley Hatfield BLAST % Normal [facility] Comment on above: Performed By: #### B LDCX1 #### [facility] [address] [place] [address] Dr. Kayley Hatfield ANDREE CELLS SLIGHT Normal [facility] Comment on above: Performed By: #### B LDCX1 #### [facility] [address] [address] [address] Kayley Hatfield CORRECTED WBC Normal 4.0-11.0 [facility] Comment on above: Performed By: #### B LDCX1 #### [facility] [address] [address] [address] Kayley Hatfield EOS # 0.16 103/ul Normal 0.00-0.70 [facility] Comment on above: Performed By: #### B LDCX1 #### [facility] [address] [place] [address] Dr. Kayley Hatfield EOS% 1.0 % Normal 0.9-7.0 [facility] Comment on above: Performed By: #### B LDCX1 #### [facility] [address] [place] [address] Dr. Kayley Hatfield GIANT PLATELETS SEEN Normal [facility] Comment on above: Performed By: #### B LDCX1 #### [facility] [address] [address] [address] Kayley Hatfield HCT 31.1 % Critically low 36.0-48.0 [facility] Comment on above: Performed By: #### B LDCX1 #### [facility] [address] [address] [address] Kayley Hatfield HGB 9.1 g/dl Critically low 12.0-16.0 [facility] Comment on above: Performed By: #### B LDCX1 #### [facility] [address] [place] [address] Dr. Kayley Hatfield HYPOCHROMASIA 1+ Normal [facility] Comment on above: Performed By: #### B [email or web address] #### [facility] [address] [place] [address] Dr. Kayley Hatfield LYMPHM # 2.09 103/ul Normal 1.20-3.80 [facility] Comment on above: Performed By: #### B LDCX1 #### [facility] [address] [place] [address] Dr. Kayely Hatfield LYMPHM% 13.0 % Critically low 20.5-60.0 [facility] Comment on above: Performed By: #### B LDCX1 #### [facility] [address] [place] [address] Dr. Kayley Hatfield MCH 21.4 pg Critically low 26.7-34.0 [facility] Comment on above: Performed By: #### B LDCX1 #### [facility] [address] [address] [address] Kayley Hatfield MCHC 29.3 g/dl Critically low 29.9-35.2 [facility] Comment on above: Performed By: #### B LDCX1 #### [facility] [address] [place] [address] Dr. Kayley Hatfield MCV 73.0 fL Critically low 81.0-99.0 [facility] Comment on above: Performed By: #### B LDCX1 #### [facility] [address] [place] [address] Dr. Kayley Hatfield METAMYELOCYTE # Normal [facility] Comment on above: Performed By: #### B LDCX1 #### [facility] [address] [place] [address] Dr. Kayley Hatfield METAMYELOCYTE % Normal [facility] Comment on above: Performed By: #### B [email or web address] #### [facility] [address] [place] [address] Dr. Kayley Hatfield MICROCYTOSIS SLIGHT Normal [facility] Comment on above: Performed By: #### B [email or web address] #### [facility] [address] [place] [address] Dr. Kayley Hatfield MONOM# 0.48 103/ul Normal 0.30-0.80 [facility] Comment on above: Performed By: #### B [id number] #### [facility] [address] [place] [address] Dr. Kayley Hatfield MONOM% 3.0 % Normal 1.7-12.0 [facility] Comment on above: Performed By: #### B [id number] #### [facility] [address] [place] [address] Dr. Kayley Hatfeild MPV 8.9 fL Critically low 9.5-13.5 [facility] Comment on above: Performed By: #### B LDCX1 #### [facility] [address] [address] [address] Kayley Hatfield MYELOCYTE # Normal [facility] Comment on above: Performed By: #### B LDCX1 #### [facility] [address] [address] [address] Kayley Hatfield MYELOCYTE % Normal [facility] Comment on above: Performed By: #### B LDCX1 #### [facility] [address] [address] [address] Kayley Hatfield NRBC Normal [facility] Comment on above: Performed By: #### B LDCX1 #### [facility] [address] [place] [address] Dr. Kayley Hatfield PLT 243 103/ul Normal 150-450 [facility] Comment on above: Performed By: #### B [id number] #### [facility] [address] [place] [address] Dr. Kayley Hatfield RBC 4.26 106/ul Normal 4.20-5.40 [facility] Comment on above: Performed By: #### B LDCX1 #### [facility] [address] [place] [address] Dr. Kayley Hatfield RDW 27.1 % Critically high 11.0-15.0 [facility] Comment on above: Performed By: #### B LDCX1 #### [facility] [address] [place] [address] Dr. Kayley Hatfield SEG # 13.36 103/ul Critically high 1.40-6.50 [facility] Comment on above: Performed By: #### B [id number] #### [facility] [address] [place] [address] Dr. Kayley Hatfield SEG % 83.0 % Critically high 43.0-75.0 [facility] Comment on above: Performed By: #### B [id number] #### [facility] [address] [place] [address] Dr. Kayley Hatfield WBC 16.1 103/ul Critically high 4.0-11.0 [facility] Comment on above: Performed By: #### B [id number] #### [facility] [address] [place] [address] CHEST WO CONon [...] % Critically low 36.0-48.0 [facility] Comment on above: Performed By: #### H GBHCT #### [facility] [address] [place] [address] Dr. Kayley Hatfield Hemoglobin (Bld) [Mass/Vol] 9.5 g/dL Critically low 12.0-16.0 [facility] Comment on above: Performed By: #### H GBHCT #### [facility] [address] [address] [address] Kayley Hatfield RETICULOCYTEon 03-07-2022 RETIC 1.92 % Normal 0.60-3.10 [facility] Comment on above: Performed By: #### O BSCRN #### [facility] [id number] Kayley Hatfield XR CHEST 1 Von [...] B (Bld) [Mass/Vol] 441.0 pg/mL Normal <=900.0 [facility] Comment on above: Performed By: #### H GBHCT #### [facility] [address] [place] [address] Dr. Kayley Hatfield CBC AUTO DIFFon 03-06-2022 BASO # 0.1 103/ul Normal 0.0-0.1 [facility] Comment on above: Performed By: #### O BSCRN #### [facility] [address] [place] [address] Dr. Kayley Hatfield Basophils/100 WBC (Bld) 0.7 % Normal 0.2-2.0 [facility] Comment on above: Performed By: #### O BSCRN #### [facility] [address] [place] [address] Dr. Kayley Hatfield EO # 0.1 103/ul Normal 0.0-0.7 [facility] Comment on above: Performed By: #### O BSCRN #### [facility] [address] [place] [address] Dr. Kayley Hatfield Eosinophils/100 WBC (Bld) 0.7 % Critically low 0.9-7.0 [facility] Comment on above: Performed By: #### O BSCRN #### [facility] [address] [place] [address] Dr. Kayley Hatfield Erythrocyte distribution width (RBC) [Ratio] 20.0 % Critically high 11.0-15.0 [facility] Comment on above: Performed By: #### O BSCRN #### [facility] [address] [place] [address] Dr. Kayley Hatfield Hematocrit (Bld) [Volume fraction] 20.1 % Critically low 36.0-48.0 [facility] Comment on above: Performed By: #### O BSCRN #### [facility] [address] [place] [address] Dr. Kayley Hatfield Hemoglobin (Bld) [Mass/Vol] 4.9 g/dL Critically low 12.0-16.0 [facility] Comment on above: Performed By: #### O BSCRN #### [facility] [address] [address] [address] Kaylye Hatfield IG # 0.12 10e3/ul Critically high 0.00-0.03 [facility] Comment on above: Performed By: #### O BSCRN #### [facility] [address] [address] [address] Kayley Hatfield IG % 0.8 % Critically high 0.0-0.5 [facility] Comment on above: Performed By: #### O BSCRN #### [facility] [address] [address] [address] Kayley Hatfield LYMPH # 1.0 103/ul Critically low 1.2-3.8 [facility] Comment on above: Performed By: #### O BSCRN #### [facility] [address] [place] [address] Dr. Kayley Hatfield Lymphocytes/100 WBC (Bld) 6.5 % Critically low 20.5-60.0 [facility] Comment on above: Performed By: #### O BSCRN #### [facility] [address] [address] [address] Kayley Hatfield MANUAL DIFF REQ NO Normal [facility] Comment on above: Performed By: #### O BSCRN #### [facility] [address] [address] [address] Kayley Hatfield MCH (RBC) [Entitic mass] 15.2 pg Critically low 26.7-34.0 [facility] Comment on above: Performed By: #### O BSCRN #### [facility] [address] [address] [address] Kayley Hatfield MCHC (RBC) [Mass/Vol] 24.4 g/dL Critically low 29.9-35.2 [facility] Comment on above: Performed By: #### O BSCRN #### [facility] [address] [address] [address] Kayley Hatfield MCV (RBC) [Entitic vol] 62.2 fL Critically low 81.0-99.0 [facility] Comment on above: Performed By: #### O BSCRN #### [facility] [address] [address] [address] Kayley Hatfield MONO # 0.5 103/ul Normal 0.3-0.8 [facility] Comment on above: Performed By: #### O BSCRN #### [facility] [address] [address] [address] Kayley Hatfield Monocytes/100 WBC (Bld) 3.5 % Normal 1.7-12.0 [facility] Comment on above: Performed By: #### O BSCRN #### [facility] [address] [place] [address] Dr. Kayley Hatfield NEUT # 13.2 103/ul Critically high 1.4-6.5 [facility] Comment on above: Performed By: #### O BSCRN #### [facility] [address] [place] [address] Dr. Kayley Hatfield Neutrophils/100 WBC (Bld) 87.8 % Critically high 43.0-75.0 [facility] Comment on above: Performed By: #### O BSCRN #### [facility] [address] [place] [address] Dr. Kayley Hatfield Platelet mean volume (Bld) [Entitic vol] 9.1 fL Critically low 9.5-13.5 [facility] Comment on above: Performed By: #### O BSCRN #### [facility] [address] [place] [address] Dr. Kayley Hatfield PLT 384 103/ul Normal 150-450 [facility] Comment on above: Performed By: #### O BSCRN #### [facility] [address] [place] [address] Dr. Kayley Hatfiled RBC 3.23 106/ul Critically low 4.20-5.40 [facility] Comment on above: Performed By: #### O BSCRN #### [facility] [address] [place] [address] Dr. Kayley Hatfield WBC 15.1 103/ul Critically high 4.0-11.0 [facility] Comment on above: Performed By: #### O BSCRN #### [facility] [address] [place] [address] Dr. Kayley Hatfield CULTURE BLOODon 03-06-2022 Microscopic examination of blood, culture Culture Observations: NO GROWTH AT 5 DAYS. Normal [facility] Comment on above: Performed By: #### C VDTBH #### [facility] [address] [place] [address] Dr. Kayley Hatfield Performed By: #### B [id number] #### [facility] [address] [place] [address] Dr. Kayley Hatfield Covid-19 PCR ([facility])on 02-07 SARS-CoV-2 (COVID-19) RNA ELBA+probe Ql [...] for this test is supported by the [place] of Health and Human Service's declaration that [...] VDTBH #### [facility] [address] [place] [address] Dr. Kayley Hatfield ER URINE PROFILEon 2 Bilirubin Ql (U) Negative Normal NEGATIVE [facility] Comment on above: Performed By: #### P RBC #### [facility] [address] [place] [address] Dr. Kayley Hatfield Clarity (U) CLEAR Normal CLEAR [facility] Comment on above: Performed By: #### P RBC #### [facility] [address] [place] [address] Dr. Kayley Hatfield Color (U) LT. YELLOW Normal YELLOW [facility] Comment on above: Performed By: #### P RBC #### [facility] [address] [place] [address] Dr. Kayley [place] A micrscopic examination will be performed if indicated. Normal [facility] Comment on above: Performed By: #### P RBC #### [facility] [address] [place] [address] Dr. Kayley Hatfield Glucose Ql (U) Negative Normal NEGATIVE [facility] Comment on above: Performed By: #### P RBC #### [facility] [address] [place] [address] Dr. Kayley Hatfield Hemoglobin Ql (U) Negative Normal NEGATIVE [facility] Comment on above: Performed By: #### P RBC #### [facility] [address] [place] [address] Dr. Kayley Hatfield Ketones Ql (U) Negative Normal NEGATIVE [facility] Comment on above: Performed By: #### P RBC #### [facility] [address] [place] [address] Dr. Kayley Hatfield LEUKOCYTES Negative Normal NEGATIVE [facility] Comment on above: Performed By: #### P RBC #### [facility] [address] [place] [address] Dr. Kayley Hatfield Nitrite Ql (U) Negative Normal NEGATIVE [facility] Comment on above: Performed By: #### P RBC #### [facility] [address] [place] [address] Dr. Kayley Hatfield pH (U) 6.0 [pH] Normal 5-9 [facility] Comment on above: Performed By: #### P RBC #### [facility] [address] [place] [address] Dr. Kayley Hatfield SPEC GRAVITY 1.010 Normal 1.005-<=1.025 [facility] Comment on above: Performed By: #### P RBC #### [facility] [address] [place] [address] Dr. Kayley Hatfield UA PROTEIN Negative Normal NEGATIVE/ TRACE [facility] Comment on above: Performed By: #### P RBC #### [facility] [address] [place] [address] Dr. Kayley Hatfield UR MICRO IND NOT INDICATED Normal [facility] Comment on above: Performed By: #### P RBC #### [facility] [address] [address] [address] Kayley Hatfield Urobilinogen Qn (U) 0.2 {Lu'U}/dL Normal 0.2 - 1. 0 [facility] Comment on above: Performed By: #### P RBC #### [facility] [address] [place] [address] Dr. Kayley Hatfield FERRITINon 03-06-2022 Ferritin [Mass/Vol] 4.0 ng/mL Critically low 8.0-252.0 [facility] Comment on above: Performed By: #### O BSCRN #### [facility] [address] [place] [address] Dr. Kayley Hatfield IRON AND TIBCon 03-06-2022 % SATURATION 2.3 % Normal [facility] Comment on above: Performed By: #### C VDTBH #### [facility] [address] [place] [address] Dr. Kayley Hatfield Iron [Mass/Vol] 12.0 ug/dL Critically low 50.0-170.0 [facility] Comment on above: Performed By: #### C VDTBH #### [facility] [address] [place] [address] Dr. Kayley Hatfield TIBC DIRECT 532.0 ug/dL Critically high 250.0-450.0 [facility] Comment on above: Performed By: #### C VDTBH #### [facility] [address] [place] [address] Dr. Kayley Hatfield OCC BLD IMMUNO SCREENon 02-07 OCCULT BLOOD Negative Normal NEGATIVE [facility] Comment on above: Performed By: #### O BSCRN #### [facility] [address] [address] [address] Kayley Hatfield PROF 14(COMP METB)on 022 Albumin [Mass/Vol] 3.6 g/dL Normal 3.4-5.0 [facility] Comment on above: Performed By: #### H GBHCT #### [facility] [address] [address] [address] Kayley Hatfield Albumin/Globulin [Mass ratio] 1.2 {ratio} Normal [facility] Comment on above: Performed By: #### H GBHCT #### [facility] [address] [address] [address] Kayley Hatfield ALP [Catalytic activity/Vol] 71 U/L Normal 46-116 [facility] Comment on above: Performed By: #### H GBHCT #### [facility] [address] [place] [address] Dr. Kayley Hatfield ALT [Catalytic activity/Vol] 20 U/L Normal 14-59 [facility] Comment on above: Performed By: #### H GBHCT #### [facility] [address] [address] [address] Kayley Hatfield Anion gap [Moles/Vol] 9.8 mmol/L Normal [facility] Comment on above: Performed By: #### H GBHCT #### [facility] [address] [address] [address] Kayley Hatfield AST [Catalytic activity/Vol] 12 U/L Critically low 15-37 [facility] Comment on above: Performed By: #### H GBHCT #### [facility] [address] [address] [address] Kayley Hatfield Bilirubin [Mass/Vol] 0.4 mg/dL Normal 0.2-1.0 [facility] Comment on above: Performed By: #### H GBHCT #### [facility] [address] [address] [address] Kayley Hatfield Calcium [Mass/Vol] 9.0 mg/dL Normal 8.5-10.1 [facility] Comment on above: Performed By: #### H GBHCT #### [facility] [address] [address] [address] Kayley Hatfield Chloride [Moles/Vol] 99 mmol/L Normal 98-107 [facility] Comment on above: Performed By: #### H GBHCT #### [facility] [address] [address] [address] Kayley Hatfield CO2 [Moles/Vol] 31.5 mmol/L Normal 21.0-32.0 [facility] Comment on above: Performed By: #### H GBHCT #### [facility] [address] [address] [address] Kayley Hatfield Creatinine [Mass/Vol] 0.89 mg/dL Normal 0.55-1.02 [facility] Comment on above: Performed By: #### H GBHCT #### [facility] [address] [address] [address] Kayley Hatfield EGFR-AF BURKINAN >60 Normal >=60 [facility] Comment on above: Performed By: #### H GBHCT #### [facility] [address] [address] [address] Kayley Hatfield EGFR-NON AF BURKINAN >60 Normal >=60 [facility] Comment on above: Performed By: #### H GBHCT #### [facility] [address] [address] [address] Kayley Hatfield Globulin (S) [Mass/Vol] 3.1 g/dL Normal [facility] Comment on above: Performed By: #### H GBHCT #### [facility] [address] [address] [address] Kayley Hatfield Glucose [Mass/Vol] 174 mg/dL Critically high 74-106 [facility] Comment on above: Performed By: #### H GBHCT #### [facility] [address] [address] [address] Kayley Hatfield Potassium [Moles/Vol] 4.3 mmol/L Normal 3.5-5.1 [facility] Comment on above: Performed By: #### H GBHCT #### [facility] [address] [address] [address] Kayley Hatfield Protein [Mass/Vol] 6.7 g/dL Normal 6.4-8.2 [facility] Comment on above: Performed By: #### H GBHCT #### [facility] [address] [address] [address] Kayley Hatfield Sodium [Moles/Vol] 136 mmol/L Normal 136-145 [facility] Comment on above: Performed By: #### H GBHCT #### [facility] [address] [address] [address] Kayley Hatfield Urea nitrogen [Mass/Vol] 17.0 mg/dL Normal 7.0-18.0 [facility] Comment on above: Performed By: #### H GBHCT #### [facility] [address] [place] [address] Dr. Kayley Hatfield Urea nitrogen/Creatinine [Mass ratio] 19.1 mg/mg Normal [facility] Comment on above: Performed By: #### H GBHCT #### [facility] [address] [place] [address] Dr. Kayley Hatfield TROPONIN, HIGH SENSITIVITYon 03-06-2022 HSTROP 7.0 pg/mL Normal 4.0-51.3 [facility] Comment on above: Result Comment: CUT- OFF POINTS HAVE BEEN ESTABLISHED BASED ON THE FOURTH UNIVERSAL DEFINITIONS OF MYOCARDIAL INFARCTION. THE UPPER REFERENCE LIMIT (URL) OF TROPONIN, DEFINED THE 99TH PERCENTILE OF cTnI DISTRIBUTION IN A REFERENCE POPULATION, HAS BEEN CONFIRMED THE DECISION THRESHOLD FOR [place] DIAGNOSIS. Performed By: #### H GBHCT #### [facility] [address] [place] [address] Dr. Kayley Hatfield TYPE AND SCREENon 03-06-2022 TYPE AND SCREEN Negative Normal [facility] Comment on above: Performed By: #### C VDTBH #### [facility] [address] [place], [place] [id number] Dr. Kayley Hatfield XR CHEST 1 Von [...] by: MIGUE REYNOSO Date: 2022-03-06 16:10 Normal [facility] XR CHEST 1 V EXAMINATION: XR [...] [email or web address] #### [facility] [address] [place] [address] Dr. Kayley Hatfield CK.MB [Mass/Vol] 1.00 ng/mL Normal <=3.60 [facility] Comment on above: Performed By: #### B LDCX1 #### [facility] [address] [place] [address] Dr. Kayley Hatfield HSTROP 11.6 pg/mL Normal 4.0-51.3 [facility] Comment on above: Result Comment: CUT- OFF POINTS HAVE BEEN ESTABLISHED BASED ON THE FOURTH UNIVERSAL DEFINITIONS OF MYOCARDIAL INFARCTION. THE UPPER REFERENCE LIMIT (URL) OF TROPONIN, DEFINED THE 99TH PERCENTILE OF cTnI DISTRIBUTION IN A REFERENCE POPULATION, HAS BEEN CONFIRMED THE DECISION THRESHOLD FOR [place] DIAGNOSIS. Performed By: #### B LDCX1 #### [facility] [address] [place] [address] Dr. Kayley Hatfield ROD 48 ng/mL Normal 9-82 [facility] Comment on above: Performed By: #### B LDCX1 #### [facility] [address] [place] [address] Dr. Kayley Hatfield CBC AUTO DIFFon 12-14-2021 BASO # 0.1 103/ul Normal 0.0-0.1 [facility] Comment on above: Performed By: #### P RBC #### [facility] [address] [place] [address] Dr. Kayley Hatfield Basophils/100 WBC (Bld) 0.9 % Normal 0.2-2.0 [facility] Comment on above: Performed By: #### P RBC #### [facility] [address] [place] [address] Dr. Kayley Hatfield EO # 0.1 103/ul Normal 0.0-0.7 [facility] Comment on above: Performed By: #### P RBC #### [facility] [address] [place] [address] Dr. Kayley Hatfield Eosinophils/100 WBC (Bld) 0.5 % Critically low 0.9-7.0 [facility] Comment on above: Performed By: #### P RBC #### [facility] [address] [place] [address] Dr. Kayley Hatfield Erythrocyte distribution width (RBC) [Ratio] 15.4 % Critically high 11.0-15.0 [facility] Comment on above: Performed By: #### P RBC #### [facility] [address] [place] [address] Dr. Kayley Hatfield Hematocrit (Bld) [Volume fraction] 29.3 % Critically low 36.0-48.0 [facility] Comment on above: Performed By: #### P RBC #### [facility] [address] [place] [address] Dr. Kayley Hatfield Hemoglobin (Bld) [Mass/Vol] 8.3 g/dL Critically low 12.0-16.0 [facility] Comment on above: Performed By: #### P RBC #### [facility] [address] [place] [address] Dr. Kayley Hatfield IG # 0.05 10e3/ul Critically high 0.00-0.03 [facility] Comment on above: Performed By: #### P RBC #### [facility] [address] [place] [address] Dr. Kayley Hatfield IG % 0.4 % Normal 0.0-0.5 [facility] Comment on above: Performed By: #### P RBC #### [facility] [address] [place] [address] Dr. Kayley Hatfield LYMPH # 1.2 103/ul Normal 1.2-3.8 [facility] Comment on above: Performed By: #### P RBC #### [facility] [address] [place] [address] Dr. Kayley Hatfield Lymphocytes/100 WBC (Bld) 10.6 % Critically low 20.5-60.0 [facility] Comment on above: Performed By: #### P RBC #### [facility] [address] [place], [place] [id number] Dr. Kayley Hatfield MANUAL DIFF REQ NO Normal [facility] Comment on above: Performed By: #### P RBC #### [facility] [address] [place] [address] Dr. Kayley Hatfield MCH (RBC) [Entitic mass] 21.4 pg Critically low 26.7-34.0 [facility] Comment on above: Performed By: #### P RBC #### [facility] [address] [place] [address] Dr. Kayley Hatfield MCHC (RBC) [Mass/Vol] 28.3 g/dL Critically low 29.9-35.2 [facility] Comment on above: Performed By: #### P RBC #### [facility] [address] [place] [address] Dr. Kayley Hatfield MCV (RBC) [Entitic vol] 75.5 fL Critically low 81.0-99.0 [facility] Comment on above: Performed By: #### P RBC #### [facility] [address] [place] [address] Dr. Kayley Hatfield MONO # 0.9 103/ul Critically high 0.3-0.8 [facility] Comment on above: Performed By: #### P RBC #### [facility] [address] [place] [address] Dr. Kayley Hatfield Monocytes/100 WBC (Bld) 7.6 % Normal 1.7-12.0 [facility] Comment on above: Performed By: #### P RBC #### [facility] [address] [place] [address] Dr. Kayley Hatfield NEUT # 9.2 103/ul Critically high 1.4-6.5 [facility] Comment on above: Performed By: #### P RBC #### [facility] [address] [place] [address] Dr. Kayley Hatfield Neutrophils/100 WBC (Bld) 80.0 % Critically high 43.0-75.0 [facility] Comment on above: Performed By: #### P RBC #### [facility] [address] [place] [address] Dr. Kayley Hatfield Platelet mean volume (Bld) [Entitic vol] 9.3 fL Critically low 9.5-13.5 [facility] Comment on above: Performed By: #### P RBC #### [facility] [address] [place] [address] Dr. Kayley Hatfield PLT 498 103/ul Critically high 150-450 [facility] Comment on above: Performed By: #### P RBC #### [facility] [address] [place] [address] Dr. Kayley Hatfield RBC 3.88 106/ul Critically low 4.20-5.40 [facility] Comment on above: Performed By: #### P RBC #### [facility] [address] [place] [address] Dr. Kayley Hatfield WBC 11.5 103/ul Critically high 4.0-11.0 [facility] Comment on above: Performed By: #### P RBC #### [facility] [address] [place] [address] Dr. Kayley Hatfield ER URINE PROFILEon 2 Bilirubin Ql (U) Negative Normal NEGATIVE [facility] Comment on above: Performed By: #### H GBHCT #### [facility] [address] [place] [address] Dr. Kayley Hatfield Clarity (U) CLEAR Normal CLEAR [facility] Comment on above: Performed By: #### H GBHCT #### [facility] [address] [place] [address] Dr. Kayley Hatfield Color (U) LT. YELLOW Normal YELLOW [facility] Comment on above: Performed By: #### H GBHCT #### [facility] [address] [place] [address] Dr. Kayley [place] A micrscopic examination will be performed if indicated. Normal [facility] Comment on above: Performed By: #### H GBHCT #### [facility] [address] [place] [address] Dr. Kayley Hatfield Glucose Ql (U) Negative Normal NEGATIVE [facility] Comment on above: Performed By: #### H GBHCT #### [facility] [address] [place] [address] Dr. Kayley Hatfield Hemoglobin Ql (U) TRACE-INTACT Abnormal NEGATIVE [facility] Comment on above: Performed By: #### H GBHCT #### [facility] [address] [address] [address] Kayley Hatfield Ketones Ql (U) Negative Normal NEGATIVE [facility] Comment on above: Performed By: #### H GBHCT #### [facility] [address] [place] [address] Dr. Kayley Hatfield LEUKOCYTES Negative Normal NEGATIVE [facility] Comment on above: Performed By: #### H GBHCT #### [facility] [address] [place] [address] Dr. Kayley Hatfield Nitrite Ql (U) Negative Normal NEGATIVE [facility] Comment on above: Performed By: #### H GBHCT #### [facility] [address] [place] [address] Dr. Kayley Hatfield pH (U) 6.5 [pH] Normal 5-9 [facility] Comment on above: Performed By: #### H GBHCT #### [facility] [address] [place] [address] Dr. Kayley Hatfield SPEC GRAVITY 1.015 Normal 1.005-<=1.025 [facility] Comment on above: Performed By: #### H GBHCT #### [facility] [address] [place] [address] Dr. Kayley Hatfield UA PROTEIN Negative Normal NEGATIVE/ TRACE [facility] Comment on above: Performed By: #### H GBHCT #### [facility] [address] [place] [address] Dr. Kayley Hatfield UR MICRO IND INDICATED Normal [facility] Comment on above: Performed By: #### H GBHCT #### [facility] [address] [place] [address] Dr. Kayley Hatfield Urobilinogen Qn (U) 0.2 {Lu'U}/dL Normal 0.2 - 1. 0 [facility] Comment on above: Performed By: #### H GBHCT #### [facility] [address] [address] [address] Kayley Hatfield PROF 14(COMP METB)on 022 Albumin [Mass/Vol] 3.2 g/dL Critically low 3.4-5.0 [facility] Comment on above: Performed By: #### B LDCX1 #### [facility] [address] [place] [address] Dr. Kayley Hatfield Albumin/Globulin [Mass ratio] 0.8 {ratio} Normal [facility] Comment on above: Performed By: #### B LDCX1 #### [facility] [address] [place] [address] Dr. Kayley Hatfield ALP [Catalytic activity/Vol] 72 U/L Normal 46-116 [facility] Comment on above: Performed By: #### B LDCX1 #### [facility] [address] [place] [address] Dr. Kayley Hatfield ALT [Catalytic activity/Vol] 24 U/L Normal 14-59 [facility] Comment on above: Performed By: #### B LDCX1 #### [facility] [address] [place] [address] Dr. Kayley Hatfield Anion gap [Moles/Vol] 13.0 mmol/L Normal [facility] Comment on above: Performed By: #### B LDCX1 #### [facility] [address] [place] [address] Dr. Kayley Hatfield AST [Catalytic activity/Vol] 18 U/L Normal 15-37 [facility] Comment on above: Performed By: #### B LDCX1 #### [facility] [address] [address] [address] Kayley Hatfield Bilirubin [Mass/Vol] 0.3 mg/dL Normal 0.2-1.0 [facility] Comment on above: Performed By: #### B LDCX1 #### [facility] [address] [place] [address] Dr. Kayley Hatfield Calcium [Mass/Vol] 9.9 mg/dL Normal 8.5-10.1 [facility] Comment on above: Performed By: #### B LDCX1 #### [facility] [address] [place] [address] Dr. Kayley Hatfield Chloride [Moles/Vol] 98 mmol/L Normal 98-107 [facility] Comment on above: Performed By: #### B LDCX1 #### [facility] [address] [place] [address] Dr. Kayley Hatfield CO2 [Moles/Vol] 29.8 mmol/L Normal 21.0-32.0 [facility] Comment on above: Performed By: #### B LDCX1 #### [facility] [address] [place] [address] Dr. Kayley Hatfield Creatinine [Mass/Vol] 1.23 mg/dL Critically high 0.55-1.02 [facility] Comment on above: Performed By: #### B LDCX1 #### [facility] [address] [place] [address] Dr. Kayley Hatfield EGFR-AF BURKINAN 53 mL/min/1.73m2 Critically low >=60 [facility] Comment on above: Performed By: #### B LDCX1 #### [facility] [address] [place] [address] Dr. Kayley Hatfield EGFR-NON AF BURKINAN 44 mL/min/1.73m2 Critically low >=60 [facility] Comment on above: Performed By: #### B LDCX1 #### [facility] [address] [place] [address] Dr. Kayley Hatfield Globulin (S) [Mass/Vol] 3.9 g/dL Normal [facility] Comment on above: Performed By: #### B LDCX1 #### [facility] [address] [place] [address] Dr. Kayley Hatfield Glucose [Mass/Vol] 160 mg/dL Critically high 74-106 [facility] Comment on above: Performed By: #### B LDCX1 #### [facility] [address] [place] [address] Dr. Kayley Hatfield Potassium [Moles/Vol] 3.8 mmol/L Normal 3.5-5.1 [facility] Comment on above: Performed By: #### B LDCX1 #### [facility] [address] [place] [address] Dr. Kayley Hatfield Protein [Mass/Vol] 7.1 g/dL Normal 6.4-8.2 [facility] Comment on above: Performed By: #### B LDCX1 #### [facility] [address] [place] [address] Dr. Kayley Hatfield Sodium [Moles/Vol] 137 mmol/L Normal 136-145 [facility] Comment on above: Performed By: #### B LDCX1 #### [facility] [address] [place] [address] Dr. Kayley Hatfield Urea nitrogen [Mass/Vol] 20.0 mg/dL Critically high 7.0-18.0 [facility] Comment on above: Performed By: #### B LDCX1 #### [facility] [address] [place] [address] Dr. Kayley Hatfield Urea nitrogen/Creatinine [Mass ratio] 16.3 mg/mg Normal [facility] Comment on above: Performed By: #### B LDCX1 #### [facility] [address] [place] [address] Dr. Kayley Hatfield TROPONIN, HIGH SENSITIVITYon 12-14-2021 HSTROP 11.3 pg/mL Normal 4.0-51.3 [facility] Comment on above: Result Comment: CUT- OFF POINTS HAVE BEEN ESTABLISHED BASED ON THE FOURTH UNIVERSAL DEFINITIONS OF MYOCARDIAL INFARCTION. THE UPPER REFERENCE LIMIT (URL) OF TROPONIN, DEFINED THE 99TH PERCENTILE OF cTnI DISTRIBUTION IN A REFERENCE POPULATION, HAS BEEN CONFIRMED THE DECISION THRESHOLD FOR [place] DIAGNOSIS. Performed By: #### P RTELEC #### [facility] [address] [place] [address] Dr. Kayley Hatfield URINE MICROSCOPIC ONLYon BACTERIA NONE SEEN Normal NONE SEEN [facility] Comment on above: Performed By: #### H GBHCT #### [facility] [address] [place] [address] Dr. Kayley Hatfield Bacteria identified Cx Nom (U) NOT INDICATED Normal [facility] Comment on above: Performed By: #### H GBHCT #### [facility] [address] [place] [address] Dr. Kayley Hatfield CAST SEEN Abnormal NONE SEEN [facility] Comment on above: Performed By: #### H GBHCT #### [facility] [address] [place] [address] Dr. Kayley Hatfield Crystals LM Nom (Urine sed) NONE SEEN Normal NONE SEEN [facility] Comment on above: Performed By: #### H GBHCT #### [facility] [address] [place] [address] Dr. Kayley Hatfield Epithelial cells LM Ql (Urine sed) FEW Abnormal NONE SEEN /RARE [facility] Comment on above: Performed By: #### H GBHCT #### [facility] [address] [place] [address] Dr. Kayley Hatfield HYALINE CAST RARE Normal [facility] Comment on above: Performed By: #### H GBHCT #### [facility] [address] [place] [address] Dr. Kayley Hatfield MUCOUS NONE SEEN Normal NONE SEEN [facility] Comment on above: Performed By: #### H GBHCT #### [facility] [address] [place] [address] Dr. Kayley Hatfield RBC 0-2 Normal 0-2 [facility] Comment on above: Performed By: #### H GBHCT #### [facility] [address] [place] [address] Dr. Kayley Hatfield WBC 0-2 Abnormal NONE SEEN [facility] Comment on above: Performed By: #### H GBHCT #### [facility] [address] [place] [address] Dr. Kayley Hatfield XR CHEST 1 Von [...] Urea nitrogen [Mass/Vol] 15.0 mg/dL Normal 7.0-18.0 [facility] Comment on above: Performed By: #### P RBC #### [facility] [address] [place] [address] Dr. Kayley Hatfield CALCIUMon 12-12-2021 Calcium [Mass/Vol] 9.1 mg/dL Normal 8.5-10.1 [facility] Comment on above: Performed By: #### C VDTBH #### [facility] [address] [place] [address] Dr. Kayley Hatfield CREATININEon 12-12-2021 Creatinine [Mass/Vol] 1.05 mg/dL Critically high 0.55-1.02 [facility] Comment on above: Performed By: #### P RBC #### [facility] [address] [place] [address] Dr. Kayley Hatfield EGFR-AF BURKINAN >60 Normal >=60 [facility] Comment on above: Performed By: #### P RBC #### [facility] [address] [place] [address] Dr. Kyaley Hatfield EGFR-NON AF BURKINAN 53 mL/min/1.73m2 Critically low >=60 [facility] Comment on above: Performed By: #### P RBC #### [facility] [address] [place] [address] Dr. Kayley Hatfield CRPon 12-12-2021 CRP [Mass/Vol] mg/L Normal <=1.0 [facility] Comment on above: Performed By: #### P RBC #### [facility] [address] [place] [address] Dr. Kayley Hatfield MAGNESIUMon 06-06-2022 Magnesium [Mass/Vol] 1.9 mg/dL Normal 1.8-2.4 [facility] Comment on above: Performed By: #### C VDTBH #### [facility] [address] [place] [address] Dr. Kayley Hatfield PHOSPHORUSon 12-12-2021 Phosphate [Mass/Vol] 4.1 mg/dL Normal 2.6-4.7 [facility] Comment on above: Performed By: #### C VDTBH #### [facility] [address] [place] [address] Dr. Kayley Hatfield SED RATE [facility] 2021 SED RATE 35 mm/hr Critically high <=30 [facility] Comment on above: Performed By: #### P RTELEC #### [facility] [address] [place] [address] Dr. Kayley Hatfield Vital Signs Date Time Vital Sign Value Performing Clinician Facility 06-26-2024 11:32-0500 Body height 165.1 cm Erasto Burroughs MD Work Phone: [facility] 06-26-2024 11:32-0500 Body mass index (BMI) [Ratio] 18.14 kg/m2 Erasto Burroughs MD Work Phone: [facility] 06-26-2024 11:32-0500 Body temperature 97.11 [degF] Erasto Burroughs MD Work Phone: [facility] 06-26-2024 11:32-0500 Body weight 49.44 kg Erasto Burroughs MD Work Phone: [facility] 06-26-2024 11:32-0500 Diastolic blood pressure 58 mm[Hg] Erasto Burroughs MD Work Phone: [facility] 06-26-2024 11:32-0500 Heart rate 124 /min Erasto Burroughs MD Work Phone: [facility] 06-26-2024 11:32-0500 SaO2% (BldA) [Mass fraction] 98 % Erasto Burroughs MD Work Phone: [facility] 06-26-2024 11:32-0500 Systolic blood pressure 110 mm[Hg] Erasto Burroughs MD Work Phone: [facility] 06-26-2023 15:27-0500 Diastolic blood pressure 103 mm[Hg] MD Erasto Burroughs Work Phone: [facility] 06-26-2023 15:27-0500 Heart rate 81 /min MD Erasto Burroughs Work Phone: [facility] 06-26-2023 15:27-0500 Respiratory rate 18 /min MD Erasto Burroughs Work Phone: [facility] 06-26-2023 15:27-0500 SaO2% (BldA) [Mass fraction] 95 % MD Erasto Burroughs Work Phone: [facility] 06-26-2023 15:27-0500 Systolic blood pressure 162 mm[Hg] MD Erasto Burroughs Work Phone: [facility] 06-26-2023 13:44-0500 Body height 162.56 cm MD Erasto Burroughs Work Phone: [facility] 06-26-2023 13:44-0500 Body weight 59.87 kg MD Erasto Burroughs Work Phone: [facility] 06-26-2023 13:44-0500 Inhaled oxygen flow rate 2 L/min MD Erasto Burroughs Work Phone: [facility] Encounters Encounter Date Encounter Type Care Provider Facility Start: 11-10-2024 ambulatory Ihsan Smiley ty:[facility] Start: 06-26-2024 End: 06-26-2024 Bamboo flowsheet Erasto Burroughs MD Work Phone: [facility] Start: 06-26-2024 End: 06-28-2024 Bamboo flowsheet Erasto Burroughs MD Work Phone: [facility] Start: 06-26-2024 End: 06-28-2024 Clinisync Result Encounter Generic External Data Provider [facility] External Department Unsolicited Start: 06-26-2024 End: 06-26-2024 Office outpatient visit 25 minutes Erasto Burroughs MD Work Phone: [facility] Comment on above: Dehydration (Primary Dx); Fever, unspecified fever cause; COPD with acute exacerbation ([facility]) Start: 06-26-2024 End: 06-26-2024 ambulatory ERASTO BURROUGHS Not Available Start: 06-07-2024 End: 06-10-2024 Clinisync Result Encounter [...] Unsolicited Start: 05-12-2024 End: 05-12-2024 ambulatory Ihsan BROWN Facility:[facility] Start: 04-29-2024 End: 04-30-2024 Refill Erasto Burroughs MD Work Phone: [facility] Comment on above: DDD (degenerative di sc disease), lumbar Start: 03-12-2024 End: 03-12-2024 Orders Only Erasto Burroughs MD Work Phone: [facility] Comment on above: Type 2 diabetes vickey itus with hyperglycemia, without long-term current use of insulin ([facility]) (Primary Dx) Start: 03-11-2024 End: 03-12-2024 Clinisync Result Encounter Erasto Burroughs MD Work Phone: [facility] External Department Unsolicited Start: 03-11-2024 End: 03-12-2024 Clinisync Result Encounter Erasto Burroughs MD Work Phone: [facility] External Department Unsolicited Start: 02-21-2024 End: 02-21-2024 ambulatory ERASTO BURROUGHS Not Available Start: 01-07-2024 End: 01-07-2024 ambulatory [facility] Start: 11-09-2023 End: 11-09-2023 ambulatory Ihsan BROWN Facility:[facility] Start: 08-18-2023 Refill Erasto Leggett Work Phone: [facility] Comment on above: DDD (degenerative di sc disease), lumbar (Primary Dx) Start: 06-27-2023 ambulatory [facility] Start: 06-26-2023 End: 06-26-2023 ambulatory Remy Royalfahad Facility:[facility] Start: 06-26-2023 End: 06-26-2023 Admission to same day surgery center MD Erasto Burroughs Work Phone: [facility] Work Phone: Start: 06-26-2023 End: 06-26-2023 ambulatory MD Erasto Burroughs Work Phone: [facility] Work Phone: Start: 06-05-2023 Evaluation and management of inpatient KONG SASHALEE [facility] Start: 06-05-2023 Evaluation and management of inpatient NOSYOSSETKRISTAN [facility] Start: 06-05-2023 Evaluation and management of inpatient NOORALKRISTAN [facility] Start: 06-04-2023 End: 06-06-2023 Evaluation and management of inpatient AVINASH MARMOLEJOCHRIS [facility] Start: 05-15-2023 ambulatory Iman Jeter Facility:[facility] Start: 10-31-2022 End: 11-01-[address] ERASTO BURROUGHS Facility: Start: 10-10-2022 End: 10-11-[address] ERASTO BURROUGHS Facility: Start: 05-01-2022 End: 05-02-[address] ERASTO BURROUGHS Facility:[facility] Start: 05-01-[address] ERASTO BURROUGHS Facil ity:[facility] Start: 04-25-2022 End: 04-26-[address] ERASTO BURROUGHS Facility:[facility] Start: 04-04-2022 Encounter for genera l adult medical examination without abnormal findings DR ERASTO BURROUGHS [facility] Start: 03-30-[address] ERASTO BURROUGHS Facil ity:[facility] Start: 03-29-2022 Encounter for genera l adult medical examination without abnormal findings DR ERASTO BURROUGHS [facility] Start: 03-28-2022 End: 03-30-2022 Evaluation and management of inpatient DR ERASTO BURROUGHS Facility:[facility] Start: 03-28-2022 End: 03-29-[address] ERASTO BURROUGHS Facility:[facility] Start: 03-28-2022 End: 03-29-2022 Encounter for general adult medical examination without abnormal findings DR ERASTO BURROUGHS Facility: Start: 03-08-2022 End: 03-15-2022 Evaluation and management of inpatient IMAN WILLIS [facility] Start: 03-06-2022 End: 03-08-2022 Evaluation and management of inpatient DR ERASTO BURROUGHS Facility:[facility] Start: 12-22-2021 End: 12-23-[address] ERASTO BURROUGHS Facility:[facility] Start: 12-14-2021 End: 12-14-[address] ERASTO BURROUGHS Facility:[facility] Start: 12-12-2021 End: 12-13-[address] ERASTO BURROUGHS Facility:[facility] Procedures Date Procedure Procedure Detail Performing Clinician Start: 06-26-2024 BLOOD CULTURE 2 Generic External Data Provider Start: 06-26-2024 BLOOD CULTURE 1 Generic External Data Provider Start: 06-07-2024 Bacteria identified in Urine by Culture Shaikh Rick SALDIVAR Work Phone: Start: 06-06-2024 BLOOD CULTURE 2 Generic External Data Provider Start: 06-06-2024 BLOOD CULTURE 1 Generic External Data Provider Start: 03-11-2024 MLR HEMOGLOBIN A1C Erasto Burroughs MD Work Phone: Start: 06-26-2023 Esophagogastroduodenoscopy MD Erasto rowland Work [...] Screening for malign ant neoplasm of colon [facility] Start: 04-15-2026 Glaucoma screening Diabetes: R etinopathy Screening [facility] Start: 09-08-2024 Hemoglobin A1c measurement Diabetes: Hemoglobin A1C [facility] Start: 07-11-2024 End: 07-11-2024 Patient encounter procedure 07/11/2024 11:45 AM EST Office Visit [facility] [address] [place] [phone] Erasto Burroughs MD [address] [place] [phone] [facility] Start: 06-26-2024 End: 06-26-2024 Patient encounter procedure 06/26/2024 11:30 AM EST Office Visit [facility] [address] [place] [phone] Erasto Burroughs MD [address] [place] [phone] Arrived [facility] Comment on above: Arrived Start: 06-06-2024 Urine screening for protein Diabetes: Urine Protein Screening [facility] Start: 05-27-2024 End: 05-27-2024 Patient encounter procedure 05/27/2024 1:30 PM EST Office Visit [facility] [address] [place] [phone] Erasto Burroughs MD [address] [place] [phone] [facility] Start: 03-09-2024 Influenza vaccination Influenza Vacc ine (#1) [facility] Start: 12-04-2023 Hemoglobin A1c measurement Diabetes: Hemoglobin A1C [facility] Start: 09-05-2023 Hemoglobin A1c measurement Diabetes: Hemoglobin A1C [facility] Start: 08-27-2023 End: 08-27-2023 Patient encounter procedure 08/27/2023 2:30 PM EST Office Visit [facility] [address] [place] [phone] Erasto Burroughs MD [address] [place] [phone] [facility] Start: 06-26-2023 [facility] Start: 03-09-2023 Influenza vaccination Influenza Vacc ine (#1) [facility] Start: 1997 Screening for malign ant neoplasm of breast Mammogram [facility] Start: 1976 Urine screening for protein Diabetes: Urine Protein Screening [facility] Start: 1967 Glaucoma screening Diabetes: R etinopathy Screening [facility] Start: 1957 Screening for malign ant neoplasm of colon [facility] BLOOD CULTURE 1 BLOOD CULTURE 1 Lab Routine 06/06/2024 10:14 AM EST [facility] BLOOD CULTURE 1 BLOOD CULTURE 1 Lab Routine 06/26/2024 12:25 PM EST [facility] BLOOD CULTURE 2 BLOOD CULTURE 2 Lab Routine 06/06/2024 10:21 AM EST [facility] BLOOD CULTURE 2 BLOOD CULTURE 2 Lab Routine 06/26/2024 2:51 PM EST [facility] Patient Education Esophageal Dilation [facility] Work Phone: Payers Date Payer Category Payer Medicare [id number] 2023 Self-pay [id number] 2022 Private Health Insurance [employer] [id number] 2022 Unknown [employer] [id number] 2022-Present [phone] [address] [address] [place] [address] [id number]. [id number] 2013 Medicare [id number]. 1.13.693. 2.7.3.780932.315 1959 Medicare [id number] 1959 Unknown [id number] 1959 Unknown [id number] 1957 Unknown [id number] 2.16.840.1.423381.3.579. 2.647 1957 Unknown [id number] 2.16.840.1.003529.3.579. 2.593 1957 Unknown [id number] 2.16.840.1.816364.3.579. 2.593 1957 Unknown [id number] 2.16.840.1.584139.3.579. 2.593 1957 Unknown [id number] 2.16.840.1.450331.3.579. 2.593 1957 Unknown [id number] 2.16.840.1.120461.3.579. 2.593 1957 Unknown [id number] 2.16.840.1.614576.3.579. 2.593 1957 Unknown [id number] 2.16.840.1.791059.3.579. 2.593 1957 Unknown [id number] 2.16.840.1.144316.3.579. 2.593 1957 Unknown [id number] 2.16.840.1.292344.3.579. 2.593 1957 Unknown [id number] 2.16.840.1.912835.3.579. 2.593 1957 Unknown [id number] 2.16.840.1.918254.3.579. 2.593 1957 Unknown [id number] 2.16.840.1.162737.3.579. 2.593 1957 Unknown [id number] 2.16.840.1.518262.3.579. 2.593 1957 Unknown [id number] 2.16.840.1.109800.3.579. 2.727 1957 Unknown [id number] 2.16.840.1.629802.3.579. 2.727 1957 Unknown [id number] 2.16.840.1.152943.3.579. 2.727 1957 Unknown [id number] 2.16.840.1.370959.3.579. 2.727 1957 Unknown [id number] 2..840.1.302044.3.579. 2.1259 1957 Unknown [id number] 2..840.1.279971.3.579. 2.1259 Unknown [id number] 2.16.840.1.034848.3.579. 2.531 Social History Date Type Detail Facility Start: 06-14-2023 End: 06-26-2023 Tobacco smoking status NHIS Ex-smoker (finding) [facility] Start: 1955 Sex Assigned At Female F [facility] Start: 03-06-1982 End: 03-06-2022 History of tobacco use Current smoker [facility] Start: 03-06-1982 End: 03-06-2022 History of tobacco use Cigarette Smoker [facility] Start: 06-14-2023 End: 06-26-2024 Cigarettes smoked current (pack per day) - Reported 2 [facility] Start: 06-14-2023 Tobacco use and exposure Smokeless tobacco non-user [facility] Start: 06-14-2023 End: 06-26-2024 Alcohol intake Ex-drinker (finding) [facility] Start: 06-14-2023 End: 06-26-2024 Tobacco use panel [facility] Start: 06-14-2023 Alcohol Comment caffine-2 cups daily [facility] Start: 1955 Sex Assigned At Not on file [facility] Goals Date Patient Goal Desired Activity /State Clinical Notes 03-09-2022 to 06-26-2024 Erasto Burroughs MD - 06/26/2024 12:09 PM eKlly Burroughs MD - 06/26/2024 12:09 PM Kelly Burroughs MD - 06/26/2024 12:08 PM Kelly Burroughs MD - 06/26/2024 11:30 AM EST Note Date & Type Note Facility 06-26-2024 History of Present illness Narrative Associated Problem(s): Fever Fever and possibly developing sepsis. Go to ER. Associated Problem(s): Dehydration Decreased PO and evidence of dehydration. Go to ER for evaluation. Associated Problem(s): COPD with acute exacerbation ([facility]) Severe SOB and decreased BS. Likely exacerbation and go to ER for treatment. Images from the original note were not included. Subjective Patient ID: Lise Canales is a 69 y.o. female who presents for Follow-up ([facility] f/up/sick). Hospital follow up from 06/06-06/08 for pneumonia, sepsis, COPD exacerbation, and hypoxia. Developed worsening cough and SOB. Severe fatigue and fever at home. To ER and found sepsis and pneumonia. Started vancomycin and zosyn. Started IV steroids. Improved in hospital and able to wean off oxygen. Uses nocturnal O2 due to COPD. Completed levaquin and prednisone. Over past few days patient declining. Increased SOB and severe fatigue. Severe nausea and emesis. Decreased PO and not drinking well. Severe fatigue and run down. Temp 101 last night. Noted hypotension and tachycardia in office. Review of Systems Respiratory: Negative for cough, shortness of breath and wheezing. Cardiovascular: Negative for chest pain and palpitations. Gastrointestinal: Negative for abdominal pain, diarrhea, nausea and vomiting. Genitourinary: Negative for dysuria. Objective Physical Exam Constitutional: General: She is not in acute distress. Appearance: Normal appearance. HENT: Head: Normocephalic. Right Ear: Tympanic membrane normal. Left Ear: Tympanic membrane normal. Eyes: Extraocular Movements: Extraocular movements intact. Pupils: Pupils are equal, round, and reactive to light. Cardiovascular: Rate and Rhythm: Normal rate and regular rhythm. Heart sounds: No murmur heard. No friction rub. No gallop. Pulmonary: Effort: Pulmonary effort is normal. Breath sounds: Normal breath sounds. No wheezing, rhonchi or rales. Abdominal: General: Bowel sounds are normal. There is no distension. Palpations: Abdomen is soft. Tenderness: There is no abdominal tenderness. There is no guarding or rebound. Musculoskeletal: Cervical back: Neck supple. Right lower leg: No edema. Left lower leg: No edema. Neurological: Mental Status: She is alert. Assessment/Plan Problem List Items Addressed This Visit COPD with acute exacerbation (CMS/HCC) Severe SOB and decreased BS. Likely exacerbation and go to ER for treatment. Fever Fever and possibly developing sepsis. Go to ER. Dehydration - Primary Decreased PO and evidence of dehydration. Go to ER for evaluation. documented in this encounter [facility] 05-12-2024 Note Patient Education Urology Urethral Dilation [...] including vitamins, herbs, eye drops, creams, and zprp-utp-elnojpb medicines. ??? Any problems you or family [...] your provider tells you to. ??? Taking bupq-xji-dvpmlcb medicines, vitamins, herbs, and supplements. General instructions [...] these instructions at home: Medicines ??? Take dmqr-vog-aksdeef and prescription medicines only as told by [...] to prevent or treat constipation: ? Take phcf-ibn-myrkbvg or prescription medicines. ? Eat foods that [...] soft tube (catheter) (more content not included)... [facility] 01-07-2024 Note [place] [facility] - [facility] Subjective Lise Easton Covert is a 68 y.o. year old female patient being seen for 6 mo follow up CAD and hypertension. She was admitted to [facility] 2 weeks ago for severe sepsis [...] pain Type 2 diabetes mellitus without complication ([facility]/HCC) Bilateral leg edema Bullous emphysema ([facility]/HCC) Chronic depressive disorder Collagenous colitis Coronary [...] Prior additional history: She was admitted to [facility] in 10/2017 with sudden onset symptoms [...] smoking. On 06/04/2023 she was [facility] to [facility] transferred from the [facility] [...] respiratory distress. Breath (more content not included)... [facility] 06-27-2023 Note [place] [facility] Subjective Lise Easton Covert is a 68 y.o. year old female patient being seen for follow up [facility] for NSTEMI. Denies chest pain, LE edema, [...] pain Type 2 diabetes mellitus without complication ([facility]) Family History Problem Relation Name Age of [...] Prior additional history: She was admitted to [facility] in 10/2017 with sudden onset symptoms [...] smoking. On 06/04/2023 she was admitted to [facility] transferred from the [facility] [...] Judgment normal. All (more content not included)... [facility] 06-26-2023 Procedure note [facility] 06-06-2023 Note Hospital Medicine Discharge Summary Final Discharge Diagnosis: Community acquired pneumonia of right lower lobe of lung Admission Diagnosis: NSTEMI (non-ST elevated myocardial infarction) ([facility]) [I21.4] Hospital course: 68 years old female lady with a medical history of hypertension, hyperlipidemia, gastroesophageal reflux disease, carotid disease, fibromyalgia, arthritis, polymyalgia rheumatica, COPD, temporal arteritis, and psoriasis. Came [facility] [...] HYDROcodone-acetaminophen 5-325 mg tablet Commonly known as: [place]ie[place] melatonin 5 mg tablet metoprolol tartrate 25 [...] Your Medications These medications were sent to [id number] - [place], [place] - [address] [facility] [address] [facility] [address] cefdinir 300 mg capsule doxycycline 100 mg [...] rhythm. Lungs: C (more content not included)... 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 Yes Does the patient have a gearcase assembler assigned to them through their insurance? Yes [...] link and activate MyChart? MyChart already active [facility] 06-05-2023 Note . Hospital Medicine History and Physical 06/05/2023 1:22 AM THE HOSPITALIST TEAM PREFERS TO USE [employer] CHAT FOR COMMUNICATION 7AM-7PM. IF I DO NOT RESPOND WITHIN 15 MINUTES, PLEASE PAGE ME/CALL THROUGH THE MAGNESIUM MILL OPERATOR. FROM 7PM-7AM, PLEASE PAGE [phone](COVR) Chief Complaint No chief complaint on file. History of Present Illness Lies Canales is an 68 y.o. female who came from home with NSTEMi. This is a 68 years old female lady with a medical history of hypertension, hyperlipidemia, gastroesophageal reflux disease, carotid disease, fibromyalgia, arthritis, polymyalgia rheumatica, COPD, temporal arteritis, and psoriasis. Came into [facility] [...] Date Noted NSTEMI (non-ST elevated myocardial infarction) ([facility]) 06/05/2023 Acute on chronic respiratory failure with hypoxia ([facility]) 04/01/2022 Anemia, unspecified 04/01/2022 Recurrent spontaneous pneumothorax 03/30/2022 Giant cell arteritis with polymyalgia rheumatica ([facility]) 10/11/2021 Pneumothorax on left 08/02/2016 Coronary atherosclerosis 06/15/2014 Dyslipidemia 06/15/2014 Status post percutaneous transluminal coronary angioplasty 06/15/2014 Angina pectoris ([facility]) 05/04/2014 Electrocardiogram abnormal 05/04/2014 Abdominal pain 04/24/2014 Altered mental status 04/24/2014 Benign essential hypertension 04/24/2014 Congestive heart failure ([facility]) 04/24/2014 Dyspnea 04/24/2014 Gastroesophageal reflux disease 04/24/2014 History of psychiatric disorder 04/24/2014 Hyperlipidemia 04/24/2014 Headache 04/24/2014 Raynaud's disease 04/24/2014 Other and unspecified noninfectious gastroenteritis and colitis(558.9) 05/15/2007 Candidiasis of mouth 04/17/2007 COPD (chronic obstructive pulmonary disease) ([facility]) 04/17/2007 Diarrhea 04/17/2007 Loss of weight 04/17/2007 Other psoriasis 04/17/2007 Psoriatic arthropathy ([facility]) 04/17/2007 Other pneumothorax 03/30/2022 Assessment and Plan [...] over 92 -Scheduled (more content not included)... [facility] 03-15-2022 Note MR#: [id number] I [facility] Pt. Name: Lizzt Lise Easton Admitted: 03/08/2022 [...] The patient was subsequently transferred to for [facility] for further workup, was admitted to step-down [...] by: Augustin Penn MD 04/03/2022 08:31 P ____ Augustin Penn MD Date Dict: 03/15/2022/03:38 P/Augustin Penn MD Date Trans: 03/15/2022 04:48 P/mmo [id number] cc: Erasto Burroughs M.D. [address] [place] [address] [facility] 03-13-2022 Note MR#: [id number] I [facility] Pt. Name: Lise Canales Admitted: 03/08/2022 Discharged: [...] by: Oli Pineda MD 04/07/2022 11:21 A ____ Oli Pineda MD Date Dict: 03/13/2022/10:09 A/Oli Pineda MD Date Trans: 03/13/2022 10:30 A/gabriela DN_[id number] cc: Erasto Burroughs M.D. [address] [place] [address] [facility] 03-09-2022 Note MR#: [id number] I [facility] Pt. Name: Lise Canales Admitted: 03/05/2020 Discharged: [...] gastritis, Helicobacter pylori infection, who presented to [facility] Emergency Department complaining of sudden onset of [...] appointment with the primary care provider through [facility] for close followup for [...] 2 to 4 weeks. Follow up at [facility] on 03/16/2022 at 9:50 a.m. MEDICATIONS [...] by: Iman Willis MD 03/11/2022 09:37 A ____ Iman Willis MD I have reviewed this discharge summary and confirmed the resident's documentation. Please note that there may be additional documentation from me. Date Dict: 03/08/2022/03:04 P/Paulette Mccord, NEGATIVE CLEANER Date Trans: 03/09/2022 11:21 A/mmo [id number] cc: Marti Poole M.D. [address] [facility] [address] Erasto Burroughs M.D. [address] [place] [address] [facility] Evaluation note No assessment inform ation available [facility] Work Phone: Evaluation note [...] [facility] Diagnosis Type 2 diabetes mellitus with hyperglycemia, without long-term current use of insulin (CMS/HCC)- Primary [facility] Diagnosis Hospital discharge follow-up- Primary Other follow-up examination Hyponatremia Hyposmolality and/or hyponatremia Pyelonephritis- Primary Unspecified pyelonephritis Type 2 diabetes mellitus with hyperglycemia, without long-term current use of insulin (CMS/HCC) Essential hypertension, benign (CMS/HCC) Essential hypertension, benign Breast cancer screening by mammogram Chronic obstructive pulmonary disease, unspecified COPD type (CMS/HCC) Dehydration- Primary Fever, unspecified fever cause COPD with acute exacerbation (CMS/HCC) documented [facility] this encounter [facility] Author Remy Givens [facility] June 26, 2023 2:44pm Note Date/Time June 26, 2023 2:44pm [facility] [address] [place] [address] Gastroenterology H&P Signed Patient: Lise Canales MR#: [id number] : 1955 Acct:[id number] Age/Sex: 68 / F Adm Date: 3 Loc: Room: Type: [facility] Attending Dr: Remy Givens MD [...] MD Documented By: Remy Givens MD 06/26/23 1441 Signed By: <Electronically signed by Remy Givens MD> 06/26/23 1449 [facility] Work Phone: Hospital Discharge instructions Additional [...] NOT operate machinery such as power tools, [employer] mowers, Integrated Trade Processing[employer], sewing machines, etc. for 24 hours. - [...] problems. -Follow up with PCP. -Office number [phone].[facility] Work Phone: Summary Purpose Family History [...] CREATED AUTHOR AUTHOR'S ORGANIZ ATION 11/04/2022 [facility] DATE CREATED AUTHOR AUTHOR'S ORGANIZ ATION 07/10/2023 [facility] DATE CREATED AUTHOR AUTHOR'S ORGANIZ ATION 02/14/2024 [facility] DATE CREATED AUTHOR AUTHOR'S ORGANIZ ATION 05/13/2024 [facility] DATE CREATED AUTHOR AUTHOR'S ORGANIZ ATION 06/29/2024 [facility] [employer] Care Teams (unrecognized sec tion and content) Team Status: Active Member Role Status Dates Erasto Burroughs MD Primary Care Provider Active Team Status: Inactive Member Role Status Dates Erasto Burroughs MD Primary Care Provider Active Remy Givens MD Attending Provider Active Motorcycle Mechanic Apprentice Relationship Specialty Start Date End Date Erasto Burroughs MD PCP - General Family Medicine 07/09/22 Motorcycle Mechanic Apprentice Relationship Specialty Start Date End Date Erasto Burroughs MD [address] [place] [address] PCP - General Family Medicine 02/21/24 Motorcycle Mechanic Apprentice Relationship Specialty Start Date End Date Erasto Burroughs MD [address] [place] [address] PCP - General Family Medicine 02/21/24 Motorcycle Mechanic Apprentice Relationship Specialty Start Date End Date Erasto Burroughs MD [address] [place] [address] PCP - [facility] 02/21/24 Motorcycle Mechanic Apprentice Relationship Specialty Start Date End Date Erasto Burroughs MD [address] [place] [address] PCP - [facility] 02/21/24 Motorcycle Mechanic Apprentice Relationship Specialty Start Date End Date Erasto Burroughs MD [address] [place] [address] PCP - [facility] 02/21/24 Motorcycle Mechanic Apprentice Relationship Specialty Start Date End Date Erasto Burroughs MD [address] [place] [address] PCP - [facility] 02/21/24 Motorcycle Mechanic Apprentice Relationship Specialty Start Date End Date Erasto Burroughs MD [address] [place] [address] PCP - [facility] 02/21/24 Motorcycle Mechanic Apprentice Relationship Specialty Start Date End Date Erasto Burroughs MD [address] [place] [address] PCP - [facility] 02/21/24 Reason for Visit (unrecogniz ed section and content) Reason Comments Med Refill Reason Comments Follow-up [facility] f/upsic k FOR RECORDS PERTAINING TO PATIENTS WHO ARE [...] BE BASED ON THE PRIMARY CLINICAL RECORDS. [facility] [employer] [facility]. provides no warranty or guarantee of the accuracy or completeness of information in this document.
--- NOTE | 2024-07-07 12:06 | ECG_ITS ---
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
[2024-07-07] MEDS: ONDANSETRON PF 4 MG/2 ML VIAL IV (12:25)
[2024-07-07 12:28] LABS: Hematocrit 43.3 % (36.0-48.0); Hemoglobin 14.1 g/dL (12.0-16.0); Mean Corpuscular HGB Conc 32.6 g/dL (29.9-35.2); Mean Corpuscular Hemoglobin 30.5 pg (26.7-34.0); Mean Corpuscular Volume 93.5 fL (81.0-99.0); Mean Platelet Volume 8.9 fL (9.5-13.5); Platelet Count 279 10^3/uL (150-450); Red Blood Count 4.63 10^6/uL (4.20-5.40); Red Cell Distribution Width 13.1 % (11.0-15.0); White Blood Count 26.5 10^3/uL (4.0-11.0)
[2024-07-07] MEDS: MORPHINE SULFATE 2 MG/ML SYRINGE 1 MG IV (12:32)
[2024-07-07 12:44] LABS: INR 0.94
[2024-07-07 12:48] LABS: Alanine Aminotransferase 23 U/L (14-59); Albumin Globulin Ratio 0.9; Alkaline Phosphatase 90 U/L (46-116); Anion Gap 9.3; Aspartate Amino Transferase 15 U/L (15-37); Bilirubin Total 0.5 mg/dL (0.2-1.0); Calcium 9.4 mg/dL (8.5-10.1); Carbon Dioxide 31.3 mmol/L (21.0-32.0); Chloride 101 mmol/L (98-107); Estimated GFR (African America 47 (>=60 mL/min/1.73m^2); Estimated GFR (Non-African Ame 39 (>=60 mL/min/1.73m^2); Globulin 3.4 g/dL; Glucose 178 mg/dL (74-106); Potassium 3.6 mmol/L (3.5-5.1); Sodium 138 mmol/L (136-145); Total Protein 6.4 g/dL (6.4-8.2)
[2024-07-07 12:49] LABS: Eosinophils Absolute Manual 0.26 10^3/uL (0.00-0.70); Lymphocytes Absolute Manual 0.79 10^3/uL (1.20-3.80); Magnesium 1.6 mg/dL (1.8-2.4); Monocytes Absolute Manual 1.06 10^3/uL (0.30-0.80); Segmented Neut Absolute Manual 24.38 10^3/uL (1.4-6.5); Troponin I High Sensitivity 19.9 pg/mL (4.0-51.3)
[2024-07-07 12:52] LABS: Lactate/Lactic Acid 1.3 mmol/L (0.4-2.0)
--- NOTE | 2024-07-07 13:00 | CT_ITS ---
[address] [address] Patient Name: SANDRA Easton COVERT MRN: [id number] date: 1955 Sex: F Assigned Patient Location: ER Current Patient Location: Accession/Order Number: [id number] Exam Date: 07/07/2024 12:50 Report Date: 07/07/2024 13:21 At the request of: MELLO MORENO Procedure: CT abdomen pelvis wo con EXAMINATION: CT abdomen pelvis wo con HISTORY: right flank pain , shortness of breath COMPARISON: CT abdomen pelvis 02/14/2024 TECHNIQUE: Axial, Coronal, and Sagittal images were obtained without and/or with IV contrast as indicated by examination type. Dose reduction techniques were achieved by using automated exposure control and/or adjustment of mA and/or kV according to patient size and/or use of iterative reconstruction technique. FINDINGS: LUNG BASES: Irregular patchy and confluent opacities within right middle lobe, right lower lobe, and lingula. Stable dense/partially calcified area of pleural thickening within posterior right lung base. LIVER: No enlargement, atrophy, suspicious density, or significant focal lesion. BILIARY: No dilatation or calcification. PANCREAS: No lesion, fluid collection, or abnormal duct dilatation. SPLEEN: No enlargement or focal lesion. ADRENALS: No mass or enlargement. KIDNEYS: No mass, obstruction, or calcification. BOWEL/MESENTERY: No visible mass, obstruction, or bowel wall thickening. AORTA/VASCULAR: Marked atherosclerotic disease of distal aorta and iliac arteries. RETROPERITONEUM: No mass or adenopathy. LYMPH NODES: No adenopathy. URINARY BLADDER: A few bladder wall diverticula. No visible focal wall thickening, lesion, or calculus. PELVIC ORGANS: No visible mass. Pelvic organs appropriate for patient age. ABDOMINAL WALL: No mass or hernia. BONES: No acute fracture. Stable mild anterior wedging of T12 and L1 vertebral bodies and superior endplate invagination of L4. OTHER: Negative. CT/CT abdomen pelvis wo con IMPRESSION: 1. No acute or specific abdominal or pelvic findings to account for patient's symptoms. 2. No infiltrates versus atelectasis within lung bases. This may represent mild pneumonia and contribute patient's symptoms. Electronically authenticated by: MIGUE REYNOSO Date: 07/07/2024 13:21
--- NOTE | 2024-07-07 13:00 | XR_ITS ---
The [address] [address] Patient Name: SANDRA Easton COVERT MRN: [id number] date: 1955 Sex: F Assigned Patient Location: ER Current Patient Location: ER Accession/Order Number: [id number] Exam Date: 07/07/2024 12:50 Report Date: 07/07/2024 13:27 At the request of: MELLO MORENO Procedure: XR chest 1V EXAMINATION: XR chest 1V HISTORY: sob COMPARISON: XR chest 06/26/2024,, 06/06/2024, 02/18/2024 FINDINGS: LUNGS: Bilateral chronic interstitial changes with mild confluent opacities within lateral right lung base. VASCULATURE: No increased pulmonary vasculature. PLEURA: No pneumothorax, effusion, or pleural thickening. CARDIAC: No cardiomegaly or cardiac silhouette abnormality. MEDIASTINUM: No visible mass or adenopathy. BONES: No fracture or visible bone lesion. OTHER: Negative. XR/XR chest 1V IMPRESSION: 1. Mild residual infiltrates within lateral right lung base suggestive of pneumonia which appears to be improving compared to 06/26/2024 and 06/06/2024. Electronically authenticated by: MIGUE REYNOSO Date: 07/07/2024 13:27
[2024-07-07 13:03] LABS: D Dimer 0.41 mg/L FEU (<=0.59)
[2024-07-07] MEDS: 0.9 % SODIUM CHLORIDE 1,641 ML 547 ML IV (13:51)
[2024-07-07] MEDS: IMIPENEM/CILASTATIN SODIUM 1,000 MG in 0.9 % SODIUM CHLORIDE 100 ML 100 MG IV (13:52)
--- NOTE | 2024-07-07 14:08 | ED_ITS ---
HPI - Abdominal Pain General Chief Complaint: Abdominal Pain Stated Complaint: DIZZY DRY HEAVING KIDNEY PAIN Time Seen by Provider: 07/07/24 12:05 Mode of arrival: walk-in History of Present Illness HPI narrative: Patient is a 69-year-old female who with just admitted to the hospital at the beginning of this month for pneumonia and she also have a history of pyelonephritis coming to the ER with a right-sided flank pain associated with shortness of breath, she mentioned that this got worse over the last few days she was just admitted to the hospital and discharged on the of this month which is 10 days ago, the patient have some decreased intake over the last few hours complaining of shortness of breath and cough in addition to no fever or chills Right flank pain Related Data Home Medications ?Medication ?Instructions ?Recorded ?Confirmed aspirin 81 mg tablet,delayed 81 mg PO DAILY 03/06/23 06/26/24 release atorvastatin 40 mg tablet 40 mg PO .QHS 03/06/23 06/26/24 duloxetine 30 mg capsule,delayed 90 mg PO DAILY 03/06/23 06/26/24 release eszopiclone 3 mg tablet (Lunesta) 3 mg PO .QHS PRN sleep 03/06/23 06/26/24 melatonin 5 mg tablet 5 mg PO .QHS 03/06/23 06/26/24 metoprolol tartrate 25 mg tablet 12.5 mg PO BID 03/06/23 06/26/24 omeprazole 40 mg capsule,delayed 40 mg PO .BIDAC 03/06/23 06/26/24 release pregabalin 100 mg capsule (Lyrica) 100 mg PO TID 03/06/23 06/26/24 albuterol sulfate 90 mcg/actuation 2 puff inhalation Q4H PRN 12/18/23 06/26/24 aerosol inhaler shortness of breath or wheezing guaifenesin 600 mg tablet, 1,200 mg PO BID 12/18/23 06/26/24 extended release 12 hr cholecalciferol (vitamin D3) 50 50 mcg PO DAILY 02/14/24 06/26/24 mcg (2,000 unit) capsule cranberry 500 mg capsule 500 mg PO DAILY 02/14/24 06/26/24 ferrous sulfate 325 mg (65 mg 325 mg PO DAILY 02/14/24 06/26/24 iron) tablet potassium chloride 20 mEq 20 meq PO DAILY PRN hypokalemia 02/14/24 06/26/24 tablet,extended release estradiol 0.01% (0.1 mg/gram) 1 appful vaginal .QWK AT BEDTIME 06/06/24 06/26/24 vaginal cream glipizide 5 mg tablet 5 mg PO DAILY 06/26/24 06/26/24 Previous Rx's ?Medication ?Instructions ?Recorded doxycycline hyclate 100 mg capsule 100 mg PO BID 7 days #14 caps 06/27/24 ipratropium 0.5 mg-albuterol 3 mg 3 ml inhalation Q6H PRN shortness 06/27/24 (2.5 mg base)/3 mL nebulization of breath or wheezing 30 days #1 soln kit prednisone 20 mg tablet 20 mg PO BID 7 days #14 tabs 06/27/24 Allergies Allergy/AdvReac Type Severity Reaction Status Date / Time azithromycin (From Zithromax Allergy Severe Unknown Verified 02/18/24 18:30 Z-Leonardo) Latex, Natural Rubber Allergy Severe Unknown Verified 02/18/24 18:30 Review of Systems ROS Status of ROS 10 or more systems reviewed and unremark able except as noted in history and below [facility] Medical History Right lower lobe pneumonia ?J18.9 - Pneumonia, unspecified organism (ICD-10) Acute pyelonephritis ?N10 - Acute pyelonephritis (ICD-10) Sepsis ?A41.9 - Sepsis, unspecified organism (ICD-10) Immunosuppressed status ?D84.9 - Immunodeficiency, unspecified (ICD-10) Chronic steroid use Temporal arteritis ?M31.6 - Other giant cell arteritis (ICD-10) CKD stage 3b, GFR 30-44 ml/min ?N18.32 - Chronic kidney disease, stage 3b (ICD-10) Chronic respiratory failure with hypoxia ?J96.11 - Chronic respiratory failure with hypoxia (ICD-10) History of tobacco abuse ?Z87.891 - Personal history of nicotine dependence (ICD-10) CAD (coronary artery disease) ?I25.10 - Atherosclerotic heart disease of [place] coronary artery without angina pectoris (ICD-10) Essential hypertension ?I10 - Essential (primary) hypertension (ICD-10) Type 2 diabetes mellitus with hyperglycemia ?E11.65 - Type 2 diabetes mellitus with hyperglycemia (ICD-10) Polymyalgia rheumatica ?M35.3 - Polymyalgia rheumatica (ICD-10) Non-ST elevated myocardial infarction (non-STEMI) ?I21.4 - Non-ST elevation (NSTEMI) myocardial infarction (ICD-10) Hyperlipidemia ?E78.5 - Hyperlipidemia, unspecified (ICD-10) Hyperglycemia, drug-induced ?R73.9 - Hyperglycemia, unspecified (ICD-10) ?T50.905A - Adverse effect of unspecified drugs, medicaments and biological substances, initial encounter (ICD-10) COPD (chronic obstructive pulmonary disease) ?J44.9 - Chronic obstructive pulmonary disease, unspecified (ICD-10) Depression ?F32.A - Depression, unspecified (ICD-10) Acid reflux ?K21.9 - Gastro-esophageal reflux disease without esophagitis (ICD-10) Nerve pain ?M79.2 - Neuralgia and neuritis, unspecified (ICD-10) Back pain ?M54.9 - Dorsalgia, unspecified (ICD-10) Thoracotomy scar of right chest ?L90.5 - Scar conditions and fibrosis of skin (ICD-10) History of oxygen administration ?Z99.81 - Dependence on supplemental oxygen (ICD-10) UTI (urinary tract infection), bacterial ?N39.0 - Urinary tract infection, site not specified (ICD-10) ?A49.9 - Bacterial infection, unspecified (ICD-10) Urethral stenosis Surgical History Status post bilateral cataract extraction ?Z98.41 - Cataract extraction status, right eye (ICD-10) ?Z98.42 - Cataract extraction status, left eye (ICD-10) 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 [part of] (ICD-10) Stented coronary artery ?Z95.5 - Presence of coronary angioplasty implant and graft (ICD-10) Family History Mother Family history of COPD (chronic obstructive pulmonary disease) Brother Family history of COPD (chronic obstructive pulmonary disease) Father Family history of COPD (chronic obstructive pulmonary disease) Family history of stroke Social History Within the past year, how often did you have a drink containing alcohol: never Within the past year, how many standard drinks containing alcohol did you have on a typical day: 1 or 2 Within the past year, how often did you have six or more drinks on one occasion: never Total score: 0 Score interpretation: A score less than 3 is consistent with normal alcohol consumption. Smoking status: Former smoker Non-prescribed substance use: denies use Previous occupational history: disabled Highest level of school completed/degree received: Associate degree: academic program Are you now , , , , never or living with a partner: Little interest or pleasure in doing things: not at all Feeling down, depressed, or hopeless: not at all Feel stressed/tense/nervous/anxious/difficulty sleeping: only a little Do you think of yourself as: straight/heterosexual Gender Identity: female Exam Narrative Exam Narrative: Nurses notes and vital signs reviewed and patient is not hypoxic. General: Well-appearing and in no apparent distress. Skin: Warm, dry, no pallor noted. No rash. Head: Normocephalic, atraumatic. Neck: Supple, non-tender. Eye: Pupils are equal, round and EOMI. No scleral icterus. Ears, Nose, Mouth, and Throat: TM are clear, no nasal mucosal hypertrophy. Oral mucosa is moist, no posterior oropharynx erythema, uvula is mid-line Cardiovascular: Regular Rate and Rhythm without murmur, gallop or rub. Respiratory: Decreased air entry bilaterally Back: No midline thoracic or lumbar vertebral tenderness. Right flank pain but there is no CVA Musculoskeletal: normal ROM, no calf or popliteal tenderness, no lower extremity edema/swelling GI: Abdomen is soft, non-distended. Normal bowel sounds. No masses appreciated. No tenderness to palpation. No rebound, guarding, or rigidity noted. Neurological: A&O x4. No cranial nerve dysfunction observed. No truncal ataxia. Moves all extremities. Sensation intact. Psychiatric: Cooperative and interactive. Normal mood and affect. Constitutional Vital Signs, click to edit/add: Last Vital Signs Temp 98.1 F 07/07/24 11:07 Pulse 120 H 07/07/24 11:07 Resp 22 H 07/07/24 11:07 BP 191/98 H 07/07/24 12:00 Pulse Ox 91 L 07/07/24 12:00 O2 Del Method Room Air 07/07/24 11:07 Course Vital Signs Vital signs: Vital Signs Temperature 98.1 F 07/07/24 11:07 Pulse Rate 120 H 07/07/24 11:07 Respiratory Rate 22 H 07/07/24 11:07 Blood Pressure 152/100 H 07/07/24 11:07 Pulse Oximetry 90 L 07/07/24 11:07 Oxygen Delivery Method Room Air 07/07/24 11:07 Temperature 98.1 F 07/07/24 11:07 Pulse Rate 120 H 07/07/24 11:07 Respiratory Rate 22 H 07/07/24 11:07 Blood Pressure 191/98 H 07/07/24 12:00 Pulse Oximetry 91 L 07/07/24 12:00 Oxygen Delivery Method Room Air 07/07/24 11:07 MDM - Abdominal Pain MDM Narrative Medical decision making narrative: The patient presented to us with a tachycardia with a heart rate of 120 Upon arrival the patient was started on IV fluids and the sepsis protocol was started specially after the white blood cell came elevated above 20 The patient had a blood culture obtained started on meropenem to cover for urine and lung infection Chemistry showing no acute kidney injury and the patient have a chronic kidney disease and the patient lactic acid was not elevated The patient urinalysis pending but the chest x-ray shows still infiltrate in the right side With the patient current presentation D-dimer was ordered to rule out PE and it was negative The patient EKG showing sinus tachycardia heart rate was in [address] elevation or depression The patient case was discussed with and he agreed to admit the patient for further evaluation Lab Data Labs: Lab Results 07/07/24 Range/Units 12:23 WBC 26.5 H (4.0-11.0) 10^3/uL RBC 4.63 (4.20-5.40) 10^6/uL Hgb 14.1 (12.0-16.0) g/dL Hct 43.3 (36.0-48.0) % MCV 93.5 (81.0-99.0) fL MCH 30.5 (26.7-34.0) pg MCHC 32.6 (29.9-35.2) g/dL RDW 13.1 (11.0-15.0) % Plt Count 279 (150-450) 10^3/uL MPV 8.9 L (9.5-13.5) fL Neut % (Auto) Sales Correspondence Clerk Lymph % (Auto) Sales Correspondence Clerk [place] % (Auto) Sales Correspondence Clerk Eos % (Auto) Sales Correspondence Clerk Baso % (Auto) Sales Correspondence Clerk Neut # (Auto) Sales Correspondence Clerk Lymph # (Auto) Sales Correspondence Clerk [place] # (Auto) Sales Correspondence Clerk Eos # (Auto) Sales Correspondence Clerk Baso # (Auto) Sales Correspondence Clerk Abs Immat Gran (auto) Sales Correspondence Clerk Seg Neuts % (Manual) 92.0 H (43.0-75.0) Lymphocytes % (Manual) 3.0 L (20.5-60.0) % Monocytes % (Manual) 4.0 (1.7-12.0) % Eosinophils % (Manual) 1.0 (0.9-7.0) % Basophils % (Manual) 0.0 L (0.2-2.0) % Imm/Tot Granulo (auto) Sales Correspondence Clerk Neutrophils # (Manual) 24.38 H (1.4-6.5) 10^3/uL Lymphocytes # (Manual) 0.79 L (1.20-3.80) 10^3/uL Monocytes # (Manual) 1.06 H (0.30-0.80) 10^3/uL Eosinophils # (Manual) 0.26 (0.00-0.70) 10^3/uL Basophils # (Manual) 0.00 (0.00-0.10) 10^3/uL PT 10.0 (9.0-11.6) sec INR 0.94 D-Dimer 0.41 (<=0.59) mg/L FEU Sodium 138 (136-145) mmol/L Potassium 3.6 (3.5-5.1) mmol/L Chloride 101 (98-107) mmol/L Carbon Dioxide 31.3 (21.0-32.0) mmol/L Anion Gap 9.3 BUN 19.0 H (7.0-18.0) mg/dL Creatinine 1.36 H (0.55-1.02) mg/dL Est GFR ( Amer) 47 L (>=60 mL/min/1.73m^2) Est GFR (Non-Af Amer) 39 L (>=60 mL/min/1.73m^2) BUN/Creatinine Ratio 14.0 Glucose 178 H (74-106) mg/dL Lactate 1.3 (0.4-2.0) mmol/L Calcium 9.4 (8.5-10.1) mg/dL Magnesium 1.6 L (1.8-2.4) mg/dL Total Bilirubin 0.5 (0.2-1.0) mg/dL AST 15 (15-37) U/L ALT 23 (14-59) U/L Alkaline Phosphatase 90 (46-116) U/L Troponin I High Sens 19.9 (4.0-51.3) pg/mL Total Protein 6.4 (6.4-8.2) g/dL Albumin 3.0 L (3.4-5.0) g/dL Globulin 3.4 g/dL Albumin/Globulin Ratio 0.9 Discharge Plan Discharge Chief Complaint: Abdominal Pain Clinical Impression: Sepsis, Pneumonia Prescriptions / Home Meds: No Action atorvastatin 40 mg tablet 40 mg PO .QHS metoprolol tartrate 25 mg tablet 12.5 mg PO BID omeprazole 40 mg capsule,delayed release(DR/EC) 40 mg PO .BIDAC duloxetine 30 mg capsule,delayed release(DR/EC) 90 mg PO DAILY aspirin 81 mg tablet,delayed release (DR/EC) 81 mg PO DAILY eszopiclone [Lunesta] 3 mg tablet 3 mg PO .QHS PRN (Reason: sleep) melatonin 5 mg tablet 5 mg PO .QHS pregabalin [Lyrica] 100 mg capsule 100 mg PO TID potassium chloride 20 mEq tablet extended release 20 meq PO DAILY PRN (Reason: hypokalemia) ferrous sulfate 325 mg (65 mg iron) tablet 325 mg PO DAILY cranberry 500 mg capsule 500 mg PO DAILY Rx Instructions: administer with a meal cholecalciferol (vitamin D3) 50 mcg (2,000 unit) capsule 50 mcg PO DAILY estradiol 0.01 % (0.1 mg/gram) cream 1 appful VAGINAL .QWK glipizide 5 mg tablet 5 mg PO DAILY ipratropium-albuterol 0.5 mg-3 mg(2.5 mg base)/3 mL Solution For Nebulization 3 ml inhalation Q6H PRN (Reason: shortness of breath or wheezing) 30 Days Qty: 1 0RF Rx Instructions: please dispense #1 box doxycycline hyclate 100 mg capsule 100 mg PO BID 7 Days Qty: 14 0RF prednisone 20 mg tablet 20 mg PO BID 7 Days Qty: 14 0RF albuterol sulfate 90 mcg/actuation HFA aerosol inhaler 2 puff INHALATION Q4H PRN (Reason: shortness of breath or wheezing) guaifenesin 600 mg tablet extended release 12hr 1,200 mg PO BID Print Language: Citizen Of [place] Referrals: Erasto Henry MD [Primary Care Provider] - 1 week
[2024-07-07] MEDS: MAGNESIUM SULFATE IN WATER 2 GM/50 ML PREMIX IV (14:28)
--- NOTE | 2024-07-07 18:45 | P.HP_ITS ---
HPI H&P: HPI History of Present Illness Chief complaint: DIZZY DRY HEAVING KIDNEY PAIN PNEUMONIA SEPSIS Narrative: Presented to the emergency room with increasing cough and shortness of breath. She was recently hospitalized approximately 2 weeks ago and treated with antibiotics, she stopped her antibiotics 3 days ago and since that time she has been progressively worse. In the emergency room found to have right lower lobe pneumonia and significant leukocytosis and now with hypoxia with O2 sat of 83%, she does have supplemental oxygen at home but she only wears it at nighttime Opioid HPI Opioid Management Most Recent Pain and Opioid Data: Last Pain Scale 7 07/07/24 19:24 07/07/24 Last Pain Intensity 0 03/06/23 15:53 03/06/23 Last Pain Assessment 07/07/24 19:24 Last MAR Pain Assessment 07/07/24 12:32 Last ORT Total Score 0 07/07/24 15:45 07/07/24 Last ORT Risk Category Low Risk 07/07/24 15:45 07/07/24 Review of Systems ROS Status of ROS 10 or more systems reviewed and unremark able except as noted in history and below [facility] Medical History (Updated 07/07/24 @ 14:19 by Sonya Zuniga MD) Right lower lobe pneumonia ?J18.9 - Pneumonia, unspecified organism (ICD-10) Acute pyelonephritis ?N10 - Acute pyelonephritis (ICD-10) Sepsis ?A41.9 - Sepsis, unspecified organism (ICD-10) Immunosuppressed status ?D84.9 - Immunodeficiency, unspecified (ICD-10) Chronic steroid use Temporal arteritis ?M31.6 - Other giant cell arteritis (ICD-10) CKD stage 3b, GFR 30-44 ml/min ?N18.32 - Chronic kidney disease, stage 3b (ICD-10) Chronic respiratory failure with hypoxia ?J96.11 - Chronic respiratory failure with hypoxia (ICD-10) History of tobacco abuse ?Z87.891 - Personal history of nicotine dependence (ICD-10) CAD (coronary artery disease) ?I25.10 - Atherosclerotic heart disease of [place] coronary artery without angina pectoris (ICD-10) Essential hypertension ?I10 - Essential (primary) hypertension (ICD-10) Type 2 diabetes mellitus with hyperglycemia ?E11.65 - Type 2 diabetes mellitus with hyperglycemia (ICD-10) Polymyalgia rheumatica ?M35.3 - Polymyalgia rheumatica (ICD-10) Non-ST elevated myocardial infarction (non-STEMI) ?I21.4 - Non-ST elevation (NSTEMI) myocardial infarction (ICD-10) Hyperlipidemia ?E78.5 - Hyperlipidemia, unspecified (ICD-10) Hyperglycemia, drug-induced ?R73.9 - Hyperglycemia, unspecified (ICD-10) ?T50.905A - Adverse effect of unspecified drugs, medicaments and biological substances, initial encounter (ICD-10) COPD (chronic obstructive pulmonary disease) ?J44.9 - Chronic obstructive pulmonary disease, unspecified (ICD-10) Depression ?F32.A - Depression, unspecified (ICD-10) Acid reflux ?K21.9 - Gastro-esophageal reflux disease without esophagitis (ICD-10) Nerve pain ?M79.2 - Neuralgia and neuritis, unspecified (ICD-10) Back pain ?M54.9 - Dorsalgia, unspecified (ICD-10) Thoracotomy scar of right chest ?L90.5 - Scar conditions and fibrosis of skin (ICD-10) History of oxygen administration ?Z99.81 - Dependence on supplemental oxygen (ICD-10) UTI (urinary tract infection), bacterial ?N39.0 - Urinary tract infection, site not specified (ICD-10) ?A49.9 - Bacterial infection, unspecified (ICD-10) Urethral stenosis Surgical History Status post bilateral cataract extraction ?Z98.41 - Cataract extraction status, right eye (ICD-10) ?Z98.42 - Cataract extraction status, left eye (ICD-10) 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 [part of] (ICD-10) Stented coronary artery ?Z95.5 - Presence of coronary angioplasty implant and graft (ICD-10) Family History Mother Family history of COPD (chronic obstructive pulmonary disease) Brother Family history of COPD (chronic obstructive pulmonary disease) Father Family history of COPD (chronic obstructive pulmonary disease) Family history of stroke Social History Within the past year, how often did you have a drink containing alcohol: never Within the past year, how many standard drinks containing alcohol did you have on a typical day: 1 or 2 Within the past year, how often did you have six or more drinks on one occasion: never Total score: 0 Score interpretation: A score less than 3 is consistent with normal alcohol consumption. Smoking status: Former smoker Non-prescribed substance use: denies use Previous occupational history: disabled Highest level of school completed/degree received: Associate degree: academic program Are you now , , , , never or living with a partner: Little interest or pleasure in doing things: not at all Feeling down, depressed, or hopeless: not at all Feel stressed/tense/nervous/anxious/difficulty sleeping: only a little Do you think of yourself as: straight/heterosexual Gender Identity: female Meds Home Medications and Allergies Home Medications ?Medication ?Instructions ?Recorded ?Confirmed ?Type aspirin 81 mg tablet,delayed 81 mg PO DAILY 03/06/23 07/07/24 History release atorvastatin 40 mg tablet 40 mg PO .QHS 03/06/23 07/07/24 History duloxetine 30 mg capsule,delayed 90 mg PO DAILY 03/06/23 07/07/24 History release eszopiclone 3 mg tablet (Lunesta) 3 mg PO .QHS PRN sleep 03/06/23 07/07/24 History melatonin 5 mg tablet 5 mg PO .QHS 03/06/23 07/07/24 History metoprolol tartrate 25 mg tablet 12.5 mg PO BID 03/06/23 07/07/24 History omeprazole 40 mg capsule,delayed 40 mg PO .BIDAC 03/06/23 07/07/24 History release pregabalin 100 mg capsule (Lyrica) 100 mg PO TID 03/06/23 07/07/24 History albuterol sulfate 90 mcg/actuation 2 puff inhalation Q4H PRN 12/18/23 07/07/24 History aerosol inhaler shortness of breath or wheezing guaifenesin 600 mg tablet, 1,200 mg PO BID 12/18/23 07/07/24 History extended release 12 hr cholecalciferol (vitamin D3) 50 50 mcg PO DAILY 02/14/24 07/07/24 History mcg (2,000 unit) capsule cranberry 500 mg capsule 500 mg PO DAILY 02/14/24 07/07/24 History ferrous sulfate 325 mg (65 mg 325 mg PO DAILY 02/14/24 07/07/24 History iron) tablet potassium chloride 20 mEq 20 meq PO DAILY PRN hypokalemia 02/14/24 07/07/24 History tablet,extended release estradiol 0.01% (0.1 mg/gram) 1 appful vaginal .QWK AT BEDTIME 06/06/24 07/07/24 History vaginal cream glipizide 5 mg tablet 5 mg PO DAILY 06/26/24 07/07/24 History ipratropium 0.5 mg-albuterol 3 mg 3 ml inhalation Q6H PRN shortness 06/27/24 07/07/24 Rx (2.5 mg base)/3 mL nebulization of breath or wheezing 30 days #1 soln kit prednisone 20 mg tablet 20 mg PO BID 7 days #14 tabs 06/27/24 07/07/24 Rx Allergies Allergy/AdvReac Type Severity Reaction Status Date / Time azithromycin (From Zithromax Allergy Severe Unknown Verified 02/18/24 18:30 Z-Leonardo) Latex, Natural Rubber Allergy Severe Unknown Verified 02/18/24 18:30 Exam Constitutional Vital Signs, click to edit/add: Last Vital Signs Temp 98.1 F 07/07/24 15:45 Pulse 113 H 07/07/24 15:45 Resp 20 07/07/24 15:45 BP 155/81 H 07/07/24 15:45 Pulse Ox 90 L 07/07/24 16:03 O2 Del Method Nasal Cannula 07/07/24 16:03 O2 Flow Rate 2 07/07/24 16:03 Documenting provider has reviewed patient's vital signs: yes Common normals: apparent distress (Moderate severe dyspnea) Chest Common normals: inspection of chest normal Respiratory Common normals: abnormal respiratory effort (Moderately severe dyspnea) and not clear to ascultation bilaterally Auscultation: rhonchi and egophony (Right lower lobe); no wheezes Cardio Common normals: regular rhythm; irregular rate Rate: tachycardic GI Common normals: Normal to inspection, nondistended, normoactive bowel sounds present and soft to palpation Results Labs Labs: Short CBC 07/07/24 Range/Units 12:23 WBC 26.5 H (4.0-11.0) 10^3/uL Hgb 14.1 (12.0-16.0) g/dL Hct 43.3 (36.0-48.0) % Plt Count 279 (150-450) 10^3/uL BMP 07/07/24 12:23 Sodium 138 Potassium 3.6 Chloride 101 Carbon Dioxide 31.3 BUN 19.0 H Creatinine 1.36 H Glucose 178 H Calcium 9.4 Liver Function 07/07/24 Range/Units 12:23 Total Bilirubin 0.5 (0.2-1.0) mg/dL AST 15 (15-37) U/L ALT 23 (14-59) U/L Alkaline Phosphatase 90 (46-116) U/L Albumin 3.0 L (3.4-5.0) g/dL Assessment and Plan Assessment and Plan (1) Pneumonia: (2) Sepsis: (3) COPD exacerbation: (4) Diarrhea: (5) Nausea: (6) Right lower lobe pneumonia: Qualifiers: Pneumonia type: due to unspecified organism Qualified Code(s): J18.9 - Pneumonia, unspecified organism Plan Admission findings: Tachycardia, respiratory distress, uncontrolled hypertension, acute hypoxia with O2 sat of 83% on room air, severe leukocytosis with white blood cell count greater than 30 secondary to right lower lobe pneumonia leading to sepsis. Sepsis is outlined above secondary to right lower lobe pneumonia resulting in acute exacerbation of COPD-antibiotics, steroids, aerosols, try to take in sputum culture blood cultures pending Diabetes mellitus-insulin sliding scale plus home medications Hypertension-continue with home medications GERD-continue with home medications Peripheral neuropathy-continue with home medications Admission status: Patient with failed outpatient treatment treatment of pneumonia, completed her 10-day course in 3 days after stopping and she is worse now with significant hypoxia leukocytosis and sepsis, medically necessary treatment will span 2 midnights. Inpatient status.
[2024-07-07 20:40] LABS: Influenza Virus A Antigen Negative; Influenza Virus B Antigen Negative; Internal Control Within Normal Limits; SARS-CoV-2 Ag NEGATIVE (NEGATIVE)
[2024-07-07 21:32] LABS: Glucometer 132 mg/dL (74-106)
[2024-07-07] MEDS: LEVOFLOXACIN IN DEXTROSE 5 % 750 MG/150 ML PREMIX 100 MG IV (21:32)
[2024-07-07] MEDS: KETOROLAC TROMETHAMINE 30 MG/ML VIAL 15 MG IVP (21:37)
[2024-07-07] MEDS: METHYLPREDNISOLONE SOD SUCC PF 125 MG/2 ML VIAL IVP (21:37)
[2024-07-07] MEDS: METOPROLOL TARTRATE 25 MG TABLET 12.5 MG PO (21:38)
[2024-07-07] MEDS: GUAIFENESIN 600 MG TAB.ER.12H 1200 MG PO (21:38)
[2024-07-07] MEDS: PREGABALIN 100 MG CAPSULE PO (21:38)
[2024-07-07] MEDS: ZOLPIDEM TARTRATE 5 MG TABLET PO ×2 (21:38→23:27)
[2024-07-07] MEDS: BENZONATATE 100 MG CAPSULE 200 MG PO (21:38)
[2024-07-07] MEDS: ACETAMINOPHEN 500 MG TABLET 1000 MG PO (21:38)
[2024-07-07] MEDS: ATORVASTATIN CALCIUM 40 MG TABLET PO (21:38)
[2024-07-07] MEDS: IPRATROPIUM/ALBUTEROL SULFATE 3 ML AMPUL.NEB IH (22:42)
[2024-07-07] MEDS: IMIPENEM/CILASTATIN SODIUM 500 MG in 0.9 % SODIUM CHLORIDE 100 ML 200 MG IV (23:26)
[2024-07-08] VITALS (23 sets, daily range): BP systolic 96–166; BP diastolic 53–96; PULSE 70–119; TEMP 35.9–36.7; O2SAT 92–97
[2024-07-08] MEDS: METHYLPREDNISOLONE SOD SUCC PF 125 MG/2 ML VIAL IVP (02:26)
[2024-07-08] MEDS: IPRATROPIUM/ALBUTEROL SULFATE 3 ML AMPUL.NEB IH ×4 (05:10→22:44)
[2024-07-08] MEDS: IMIPENEM/CILASTATIN SODIUM 500 MG in 0.9 % SODIUM CHLORIDE 100 ML 200 MG IV ×2 (05:50→18:08)
[2024-07-08] MEDS: PREGABALIN 100 MG CAPSULE PO ×3 (05:50→22:46)
[2024-07-08 06:09] LABS: Basophils Percent Auto 0.1 % (0.2-2.0); Hematocrit 38.6 % (36.0-48.0); Hemoglobin 12.2 g/dL (12.0-16.0); Immature Granulocytes Abs Auto 0.17 10^3/uL (0.00-0.03); Immature Granulocytes Pct Auto 1.2 % (0.0-0.5); Lymphocytes Absolute Auto 0.4 10^3/uL (1.2-3.8); Lymphocytes Percent Auto 2.5 % (20.5-60.0); Mean Corpuscular HGB Conc 31.6 g/dL (29.9-35.2); Mean Corpuscular Volume 95.1 fL (81.0-99.0); Mean Platelet Volume 9.2 fL (9.5-13.5); Monocytes Absolute Auto 0.1 10^3/uL (0.3-0.8); Monocytes Percent Auto 0.7 % (1.7-12.0); Neutrophils Absolute Auto 13.7 10^3/uL (1.4-6.5); Neutrophils Percent Auto 95.5 % (43.0-75.0); Platelet Count 235 10^3/uL (150-450); Red Blood Count 4.06 10^6/uL (4.20-5.40); White Blood Count 14.3 10^3/uL (4.0-11.0)
[2024-07-08 06:25] LABS: Alanine Aminotransferase 19 U/L (14-59); Albumin Globulin Ratio 0.7; Albumin Level 2.5 g/dL (3.4-5.0); Alkaline Phosphatase 68 U/L (46-116); Anion Gap 13.6; Aspartate Amino Transferase 15 U/L (15-37); BUN Creatinine Ratio 11.7; Bilirubin Total 0.4 mg/dL (0.2-1.0); Calcium 8.5 mg/dL (8.5-10.1); Carbon Dioxide 26.8 mmol/L (21.0-32.0); Chloride 101 mmol/L (98-107); Estimated GFR (African America 38 (>=60 mL/min/1.73m^2); Estimated GFR (Non-African Ame 32 (>=60 mL/min/1.73m^2); Globulin 3.4 g/dL; Glucose 303 mg/dL (74-106); Potassium 4.4 mmol/L (3.5-5.1); Sodium 137 mmol/L (136-145); Total Protein 5.9 g/dL (6.4-8.2)
[2024-07-08 07:03] LABS: Magnesium 2.2 mg/dL (1.8-2.4)
[2024-07-08 07:49] LABS: Glucometer 392 mg/dL (74-106)
[2024-07-08] MEDS: INSULIN ASPART 300 UNIT/3 ML PEN SUBQ ×4 (08:34→23:02)
[2024-07-08] MEDS: OMEPRAZOLE 40 MG CAPSULE.DR PO ×2 (08:38→17:17)
[2024-07-08] MEDS: METHYLPREDNISOLONE SOD SUCC PF 125 MG/2 ML VIAL 60 MG IVP ×3 (08:38→20:39)
[2024-07-08] MEDS: DULOXETINE HCL 30 MG CAPSULE.DR 90 MG PO (08:39)
[2024-07-08] MEDS: MAGNESIUM OXIDE 400 MG TABLET PO ×2 (08:39→20:40)
[2024-07-08] MEDS: GUAIFENESIN 600 MG TAB.ER.12H 1200 MG PO ×2 (08:39→20:39)
[2024-07-08] MEDS: ASPIRIN 81 MG TABLET.DR PO (08:39)
[2024-07-08] MEDS: CHOLECALCIFEROL (VITAMIN D3) 25 MCG/1,000 UNITS TABLET 50 MCG PO (08:39)
[2024-07-08] MEDS: FERROUS SULFATE 325 MG TABLET PO (08:39)
--- NOTE | 2024-07-08 08:41 | SWNOTE1 ---
Pt has home oxygen, SW to call company. SW to check therapy notes as well.
[2024-07-08] MEDS: GLIPIZIDE 5 MG TABLET PO (08:44)
[2024-07-08] MEDS: 0.9 % SODIUM CHLORIDE 1,000 ML 500 ML IV (08:44)
--- NOTE | 2024-07-08 09:03 | CM.NOTE ---
Rounds made with Dr. Wyatt, no discharge today. Pt requiring oxygen at this time. Pt only wears oxygen at HS at this time.
[2024-07-08 09:33] LABS: BOX Test Reference Lab Firelands; BOX Test Sent Out Sputum Culture
[2024-07-08 11:44] LABS: Glucometer 249 mg/dL (74-106)
--- NOTE | 2024-07-08 12:05 | SWNOTE1 ---
SW reviewed therapy notes and pt is independent, no anticipated discharge needs. SW did ask pt and the company where home oxygen is from, they stated [facility] in [place]. SW to call.
[2024-07-08] MEDS: KETOROLAC TROMETHAMINE 30 MG/ML VIAL 15 MG IVP ×2 (12:14→20:50)
--- NOTE | 2024-07-08 12:38 | SWNOTE1 ---
SW did call and confirm with [facility] (DME) and pt does have a script for 2 liters oxygen at night and the script was from 03/20/22. Pt is due for new testing. SW left the name and number for [employer] just in case pt's oxygen order changes.
--- NOTE | 2024-07-08 13:04 | P.PN_ITS ---
Progress Note: Subjective Subjective Interval history: She is little bit better today. But still requiring supplemental oxygen. Still significant dyspnea with any activity. Exam Constitutional Vital Signs, click to edit/add: Last Vital Signs Temp 97.1 F L 07/08/24 08:20 Pulse 97 H 07/08/24 12:00 Resp 18 07/08/24 08:20 BP 96/53 07/08/24 08:20 Pulse Ox 95 07/08/24 11:12 O2 Del Method Nasal Cannula 07/08/24 11:12 O2 Flow Rate 2 07/08/24 11:12 Documenting provider has reviewed patient's vital signs: yes Common normals: apparent distress (Moderate severe dyspnea) Chest Common normals: inspection of chest normal Respiratory Common normals: abnormal respiratory effort (Moderately severe dyspnea) and not clear to ascultation bilaterally Auscultation: rhonchi (Better air exchange today) and egophony (Right lower lobe); no wheezes (Less wheeze today but just had breathing treatment) Cardio Common normals: regular rhythm; irregular rate Rate: tachycardic GI Common normals: Normal to inspection, nondistended, normoactive bowel sounds present and soft to palpation Progress Note: Objective Labs Labs: Short CBC 07/08/24 Range/Units 06:00 WBC 14.3 H (4.0-11.0) 10^3/uL Hgb 12.2 (12.0-16.0) g/dL Hct 38.6 (36.0-48.0) % Plt Count 235 (150-450) 10^3/uL BMP 07/08/24 06:00 Sodium 137 Potassium 4.4 Chloride 101 Carbon Dioxide 26.8 BUN 19.0 H Creatinine 1.62 H Glucose 303 H Calcium 8.5 Liver Function 07/08/24 Range/Units 06:00 Total Bilirubin 0.4 (0.2-1.0) mg/dL AST 15 (15-37) U/L ALT 19 (14-59) U/L Alkaline Phosphatase 68 (46-116) U/L Albumin 2.5 L (3.4-5.0) g/dL Progress Note: A&P Assessment and Plan (1) Pneumonia: (2) Sepsis: (3) COPD exacerbation: (4) Diarrhea: (5) Nausea: (6) Right lower lobe pneumonia: Qualifiers: Pneumonia type: due to unspecified organism Qualified Code(s): J18.9 - Pneumonia, unspecified organism Plan Admission findings: Tachycardia, respiratory distress, uncontrolled hypertension, acute hypoxia with O2 sat of 83% on room air, severe leukocytosis with white blood cell count greater than 30 secondary to right lower lobe pneumonia leading to sepsis. Sepsis as outlined above secondary to right lower lobe pneumonia resulting in acute exacerbation of COPD-she still slightly better, still with significant dyspnea, still requiring supplemental oxygen, maintain current treatment plan least 1 additional day, white blood cell count is improved but still significantly elevated Acute elevation in creatinine, not meeting criteria for an injury stage I-fluid bolus today Diabetes mellitus-insulin sliding scale plus home medications-adjust sliding scale, reducing steroids may help Hypertension-continue with home medications GERD-continue with home medications Peripheral neuropathy-continue with home medications Admission status: Patient with failed outpatient treatment treatment of pneumonia, completed her 10-day course in 3 days after stopping and she is worse now with significant hypoxia leukocytosis and sepsis, medically necessary treatment will span 2 midnights. Inpatient status. ?
[2024-07-08] MEDS: METOPROLOL TARTRATE 25 MG TABLET 12.5 MG PO ×2 (14:41→20:40)
[2024-07-08 17:09] LABS: Glucometer 262 mg/dL (74-106)
[2024-07-08 21:04] LABS: Glucometer 166 mg/dL (74-106)
[2024-07-08] MEDS: ATORVASTATIN CALCIUM 40 MG TABLET PO (22:46)
[2024-07-08] MEDS: ZOLPIDEM TARTRATE 5 MG TABLET PO (22:46)
[2024-07-08] MEDS: ACETAMINOPHEN 500 MG TABLET 1000 MG PO (23:09)
[2024-07-09] VITALS (20 sets, daily range): BP systolic 146–166; BP diastolic 72–83; PULSE 89–114; TEMP 36.6–36.8; O2SAT 90–94
[2024-07-09] MEDS: IPRATROPIUM/ALBUTEROL SULFATE 3 ML AMPUL.NEB IH ×4 (04:35→23:11)
[2024-07-09] MEDS: METHYLPREDNISOLONE SOD SUCC PF 125 MG/2 ML VIAL 60 MG IVP ×3 (05:01→21:42)
[2024-07-09] MEDS: IMIPENEM/CILASTATIN SODIUM 500 MG in 0.9 % SODIUM CHLORIDE 100 ML 200 MG IV (05:02)
[2024-07-09] MEDS: PREGABALIN 100 MG CAPSULE PO ×3 (05:03→21:43)
[2024-07-09 08:14] LABS: Basophils Percent Auto 0.1 % (0.2-2.0); Hematocrit 32.4 % (36.0-48.0); Hemoglobin 10.5 g/dL (12.0-16.0); Immature Granulocytes Abs Auto 0.16 10^3/uL (0.00-0.03); Immature Granulocytes Pct Auto 0.6 % (0.0-0.5); Lymphocytes Absolute Auto 0.1 10^3/uL (1.2-3.8); Lymphocytes Percent Auto 0.4 % (20.5-60.0); Mean Corpuscular HGB Conc 32.4 g/dL (29.9-35.2); Mean Corpuscular Hemoglobin 30.3 pg (26.7-34.0); Mean Corpuscular Volume 93.6 fL (81.0-99.0); Mean Platelet Volume 9.5 fL (9.5-13.5); Monocytes Absolute Auto 0.4 10^3/uL (0.3-0.8); Monocytes Percent Auto 1.8 % (1.7-12.0); Neutrophils Absolute Auto 24.1 10^3/uL (1.4-6.5); Neutrophils Percent Auto 97.1 % (43.0-75.0); Platelet Count 250 10^3/uL (150-450); Red Blood Count 3.46 10^6/uL (4.20-5.40); Red Cell Distribution Width 13.1 % (11.0-15.0); White Blood Count 24.8 10^3/uL (4.0-11.0)
[2024-07-09 08:39] LABS: Alanine Aminotransferase 20 U/L (14-59); Albumin Globulin Ratio 0.8; Albumin Level 2.6 g/dL (3.4-5.0); Alkaline Phosphatase 60 U/L (46-116); Anion Gap 14.7; Aspartate Amino Transferase 15 U/L (15-37); BUN Creatinine Ratio 20.1; Bilirubin Total 0.3 mg/dL (0.2-1.0); Calcium 8.5 mg/dL (8.5-10.1); Carbon Dioxide 23.4 mmol/L (21.0-32.0); Chloride 103 mmol/L (98-107); Estimated GFR (African America 42 (>=60 mL/min/1.73m^2); Estimated GFR (Non-African Ame 35 (>=60 mL/min/1.73m^2); Globulin 3.2 g/dL; Glucose 250 mg/dL (74-106); Potassium 4.1 mmol/L (3.5-5.1); Sodium 137 mmol/L (136-145); Total Protein 5.8 g/dL (6.4-8.2)
[2024-07-09] MEDS: OMEPRAZOLE 40 MG CAPSULE.DR PO ×2 (08:55→16:28)
[2024-07-09] MEDS: MAGNESIUM OXIDE 400 MG TABLET PO ×2 (08:55→21:42)
[2024-07-09] MEDS: METOPROLOL TARTRATE 25 MG TABLET 12.5 MG PO ×2 (08:55→21:43)
[2024-07-09] MEDS: GUAIFENESIN 600 MG TAB.ER.12H 1200 MG PO ×2 (08:55→21:42)
[2024-07-09] MEDS: GLIPIZIDE 5 MG TABLET PO (08:55)
[2024-07-09] MEDS: FERROUS SULFATE 325 MG TABLET PO (08:56)
[2024-07-09] MEDS: INSULIN ASPART 300 UNIT/3 ML PEN SUBQ ×3 (08:56→21:44)
[2024-07-09] MEDS: ASPIRIN 81 MG TABLET.DR PO (08:56)
[2024-07-09] MEDS: CHOLECALCIFEROL (VITAMIN D3) 25 MCG/1,000 UNITS TABLET 50 MCG PO (08:56)
--- NOTE | 2024-07-09 10:40 | P.PN_ITS ---
Progress Note: Subjective Subjective Interval history: Patient has been able to be weaned off of her supplemental oxygen, but still significant dyspnea with any activity and patient does not feel like that has improved Exam Constitutional Vital Signs, click to edit/add: Last Vital Signs Temp 97.9 F 07/09/24 07:47 Pulse 89 07/09/24 09:51 Resp 18 07/09/24 07:47 BP 152/72 H 07/09/24 07:47 Pulse Ox 93 L 07/09/24 07:47 O2 Del Method Room Air 07/09/24 07:47 O2 Flow Rate 1 07/08/24 13:04 Documenting provider has reviewed patient's vital signs: yes Common normals: apparent distress (Moderate severe dyspnea) Chest Common normals: inspection of chest normal Respiratory Common normals: abnormal respiratory effort (Moderate dyspnea persisting) and not clear to ascultation bilaterally Auscultation: rhonchi (Better air exchange today); no wheezes (Less wheeze today but just had breathing treatment) and no egophony (Resolved) Cardio Common normals: regular rhythm; irregular rate Rate: tachycardic GI Common normals: Normal to inspection, nondistended, normoactive bowel sounds present and soft to palpation Progress Note: Objective Labs Labs: Short CBC 07/09/24 Range/Units 07:29 WBC 24.8 H (4.0-11.0) 10^3/uL Hgb 10.5 L (12.0-16.0) g/dL Hct 32.4 L (36.0-48.0) % Plt Count 250 (150-450) 10^3/uL BMP 07/09/24 07:29 Sodium 137 Potassium 4.1 Chloride 103 Carbon Dioxide 23.4 BUN 30.0 H Creatinine 1.49 H Glucose 250 H Calcium 8.5 Liver Function 07/09/24 Range/Units 07:29 Total Bilirubin 0.3 (0.2-1.0) mg/dL AST 15 (15-37) U/L ALT 20 (14-59) U/L Alkaline Phosphatase 60 (46-116) U/L Albumin 2.6 L (3.4-5.0) g/dL Progress Note: A&P Assessment and Plan (1) Pneumonia: (2) Sepsis: (3) COPD exacerbation: (4) Diarrhea: (5) Nausea: (6) Right lower lobe pneumonia: Qualifiers: Pneumonia type: due to unspecified organism Qualified Code(s): J18.9 - Pneumonia, unspecified organism Plan Admission findings: Tachycardia, respiratory distress, uncontrolled hypertension, acute hypoxia with O2 sat of 83% on room air, severe leukocytosis with white blood cell count greater than 30 secondary to right lower lobe pneumonia leading to sepsis. Sepsis as outlined above secondary to right lower lobe pneumonia resulting in acute exacerbation of COPD-patient does not feel improved today at all with ambulation. White blood cell count is higher, steroids were not increased recently, with change in white blood cell count patient not feeling improved, adjusting antibiotics today, unable to discharge today. Acute elevation in creatinine, not meeting criteria for an injury stage I- improved from previous day Diabetes mellitus-insulin sliding scale plus home medications-adjust sliding scale, reducing steroids may help Hypertension-continue with home medications GERD-continue with home medications Peripheral neuropathy-continue with home medications Moderate protein calorie malnutrition-diet management Iron deficiency anemia-diet management and monitoring daily Admission status: Patient with failed outpatient treatment treatment of pneumonia, completed her 10-day course in 3 days after stopping and she is worse now with significant hypoxia leukocytosis and sepsis, medically necessary shireen tment will span 2 midnights. Inpatient status. ?
[2024-07-09 11:38] LABS: Bilirubin Urine NEGATIVE (NEGATIVE); Blood Urine SMALL (NEGATIVE); Clarity Urine CLEAR (CLEAR); Color Urine LT. YELLOW (YELLOW); Glucose Urine UA 250 mg/dL (NEGATIVE); Ketones Urine NEGATIVE (NEGATIVE); Leukocyte Esterase Urine NEGATIVE (NEGATIVE); Nitrite Urine NEGATIVE (NEGATIVE); Protein Urine TRACE mg/dL (NEG/TRACE); Urobilinogen Urine 0.2 EU/dL (0.2-1.0)
[2024-07-09] MEDS: KETOROLAC TROMETHAMINE 30 MG/ML VIAL IVP (11:47)
[2024-07-09] MEDS: ACETAMINOPHEN 500 MG TABLET 1000 MG PO (11:48)
[2024-07-09 12:44] LABS: Bacteria Urine TRACE #/HPF (NONE SEEN); Crystals Seen? None Seen #/HPF (None Seen); Mucus Urine TRACE (NONE SEEN); RBC Urine 0-2 #/HPF (0-2); Squamous Epithelial Cell Urine FEW #/LPF (NONE/RARE); WBC Urine 0-2 #/HPF (NONE SEEN)
[2024-07-09 12:45] LABS: Cast Seen? NONE SEEN #/LPF (NONE SEEN); Urine Culture Indicated ALREADY ORDERED
[2024-07-09] MEDS: CLINDAMYCIN PHOSPHATE/D5W 600 MG/50 ML PREMIX 100 MG IV ×2 (13:50→21:42)
[2024-07-09 16:27] LABS: Glucometer 167 mg/dL (74-106)
[2024-07-09] MEDS: CEFTAZIDIME 1,000 MG in 0.9 % SODIUM CHLORIDE 50 ML 100 MG IV (16:28)
[2024-07-09 20:21] LABS: Glucometer 280 mg/dL (74-106)
[2024-07-09] MEDS: KETOROLAC TROMETHAMINE 30 MG/ML VIAL 15 MG IVP (21:42)
[2024-07-09] MEDS: ATORVASTATIN CALCIUM 40 MG TABLET PO (21:42)
[2024-07-10] VITALS (16 sets, daily range): BP systolic 137–169; BP diastolic 78–91; PULSE 77–103; TEMP 36.6–36.8; O2SAT 90–94
[2024-07-10] MEDS: ZOLPIDEM TARTRATE 5 MG TABLET PO (00:04)
[2024-07-10] MEDS: ACETAMINOPHEN 500 MG TABLET 1000 MG PO ×3 (00:05→20:27)
[2024-07-10] MEDS: CLINDAMYCIN PHOSPHATE/D5W 600 MG/50 ML PREMIX 100 MG IV ×4 (02:43→20:27)
[2024-07-10] MEDS: METHYLPREDNISOLONE SOD SUCC PF 125 MG/2 ML VIAL 60 MG IVP ×2 (04:13→17:04)
[2024-07-10] MEDS: IPRATROPIUM/ALBUTEROL SULFATE 3 ML AMPUL.NEB IH ×4 (05:18→22:20)
[2024-07-10] MEDS: PREGABALIN 100 MG CAPSULE PO ×3 (05:27→21:50)
[2024-07-10 06:27] LABS: Basophils Percent Auto 0.1 % (0.2-2.0); Hematocrit 32.4 % (36.0-48.0); Hemoglobin 10.4 g/dL (12.0-16.0); Immature Granulocytes Abs Auto 0.14 10^3/uL (0.00-0.03); Immature Granulocytes Pct Auto 0.7 % (0.0-0.5); Lymphocytes Absolute Auto 0.1 10^3/uL (1.2-3.8); Lymphocytes Percent Auto 0.6 % (20.5-60.0); Mean Corpuscular HGB Conc 32.1 g/dL (29.9-35.2); Mean Corpuscular Hemoglobin 30.1 pg (26.7-34.0); Mean Corpuscular Volume 93.9 fL (81.0-99.0); Mean Platelet Volume 9.3 fL (9.5-13.5); Monocytes Absolute Auto 0.2 10^3/uL (0.3-0.8); Neutrophils Absolute Auto 18.8 10^3/uL (1.4-6.5); Neutrophils Percent Auto 97.6 % (43.0-75.0); Platelet Count 259 10^3/uL (150-450); Red Blood Count 3.45 10^6/uL (4.20-5.40); Red Cell Distribution Width 13.4 % (11.0-15.0); White Blood Count 19.3 10^3/uL (4.0-11.0)
[2024-07-10 06:41] LABS: Alanine Aminotransferase 18 U/L (14-59); Albumin Globulin Ratio 0.8; Albumin Level 2.5 g/dL (3.4-5.0); Alkaline Phosphatase 61 U/L (46-116); Aspartate Amino Transferase 14 U/L (15-37); BUN Creatinine Ratio 21.4; Bilirubin Total 0.3 mg/dL (0.2-1.0); Calcium 8.6 mg/dL (8.5-10.1); Carbon Dioxide 26.8 mmol/L (21.0-32.0); Chloride 105 mmol/L (98-107); Estimated GFR (African America 37 (>=60 mL/min/1.73m^2); Estimated GFR (Non-African Ame 30 (>=60 mL/min/1.73m^2); Globulin 3.1 g/dL; Glucose 162 mg/dL (74-106); Potassium 4.8 mmol/L (3.5-5.1); Sodium 139 mmol/L (136-145); Total Protein 5.6 g/dL (6.4-8.2)
[2024-07-10] MEDS: OMEPRAZOLE 40 MG CAPSULE.DR PO ×2 (07:54→16:00)
[2024-07-10] MEDS: CHOLECALCIFEROL (VITAMIN D3) 25 MCG/1,000 UNITS TABLET 50 MCG PO (08:59)
[2024-07-10] MEDS: METOPROLOL TARTRATE 25 MG TABLET 12.5 MG PO ×2 (08:59→21:50)
[2024-07-10] MEDS: GUAIFENESIN 600 MG TAB.ER.12H 1200 MG PO ×2 (08:59→21:50)
[2024-07-10] MEDS: MAGNESIUM OXIDE 400 MG TABLET PO ×2 (08:59→21:50)
[2024-07-10] MEDS: DULOXETINE HCL 30 MG CAPSULE.DR 90 MG PO (08:59)
[2024-07-10] MEDS: FERROUS SULFATE 325 MG TABLET PO (08:59)
[2024-07-10] MEDS: ASPIRIN 81 MG TABLET.DR PO (08:59)
[2024-07-10] MEDS: GLIPIZIDE 5 MG TABLET PO (09:01)
--- NOTE | 2024-07-10 09:37 | P.PN_ITS ---
Progress Note: Subjective Subjective Interval history: Patient with significant dyspnea with any activity but she does feel improved Exam Constitutional Vital Signs, click to edit/add: Last Vital Signs Temp 98 F 07/10/24 07:36 Pulse 91 H 07/10/24 07:53 Resp 20 07/10/24 07:36 BP 140/81 07/10/24 07:36 Pulse Ox 92 L 07/10/24 07:36 O2 Del Method Room Air 07/10/24 07:36 O2 Flow Rate 1 07/08/24 13:04 Documenting provider has reviewed patient's vital signs: yes Common normals: no apparent distress Chest Common normals: inspection of chest normal Respiratory Common normals: abnormal respiratory effort (Cough throughout the evaluation) Auscultation: rhonchi (Less rhonchi but persisting) Progress Note: Objective Labs Labs: Short CBC 07/10/24 Range/Units 05:50 WBC 19.3 H (4.0-11.0) 10^3/uL Hgb 10.4 L (12.0-16.0) g/dL Hct 32.4 L (36.0-48.0) % Plt Count 259 (150-450) 10^3/uL BMP 07/10/24 05:50 Sodium 139 Potassium 4.8 Chloride 105 Carbon Dioxide 26.8 BUN 36.0 H Creatinine 1.68 H Glucose 162 H Calcium 8.6 Liver Function 07/10/24 Range/Units 05:50 Total Bilirubin 0.3 (0.2-1.0) mg/dL AST 14 L (15-37) U/L ALT 18 (14-59) U/L Alkaline Phosphatase 61 (46-116) U/L Albumin 2.5 L (3.4-5.0) g/dL Urine 07/09/24 Range/Units 10:56 Urine Color Lt. yellow (YELLOW) Urine Clarity Clear (CLEAR) Urine pH 6.0 (5.0-9.0) Ur Specific [place] 1.020 (1.005-1.025) Urine Protein Trace (NEG/TRACE) mg/dL Urine Glucose (UA) 250 A (NEGATIVE) mg/dL Progress Note: A&P Assessment and Plan (1) Pneumonia: (2) Sepsis: (3) COPD exacerbation: (4) Diarrhea: (5) Nausea: (6) Right lower lobe pneumonia: Qualifiers: Pneumonia type: due to unspecified organism Qualified Code(s): J18.9 - Pneumonia, unspecified organism Plan Admission findings: Tachycardia, respiratory distress, uncontrolled hypertension, acute hypoxia with O2 sat of 83% on room air, severe leukocytosis with white blood cell count greater than 30 secondary to right lower lobe pneumonia leading to sepsis. Sepsis as outlined above secondary to right lower lobe pneumonia resulting in acute exacerbation of COPD-patient does not feel improved today at all with ambulation. Antibiotics were adjusted on 07/09/2024-white blood cell count is improved, will maintain current IV dosing, if improved tomorrow will likely discharge to home tomorrow Acute elevation in creatinine, not meeting criteria for an injury stage I- improved from previous day Diabetes mellitus-insulin sliding scale plus home medications-adjust sliding scale, reducing steroids may help Hypertension-continue with home medications GERD-continue with home medications Peripheral neuropathy-continue with home medications Moderate protein calorie malnutrition-diet management Right flank pain-urinalysis is essentially negative, but will check on culture Iron deficiency anemia-diet management and monitoring daily Admission status: Patient with failed outpatient treatment treatment of pneumonia, completed her 10-day course in 3 days after stopping and she is worse now with significant hypoxia leukocytosis and sepsis, medically necessary treatment will span 2 midnights. Inpatient status. ?
--- NOTE | 2024-07-10 09:38 | XR_ITS ---
The [address] [address] Patient Name: SANDRA Easton COVERT MRN: [id number] date: 1955 Sex: F Assigned Patient Location: [place] Current Patient Location: [place] Accession/Order Number: [id number] Exam Date: 07/10/2024 09:50 Report Date: 07/10/2024 10:27 At the request of: ANABEL ISBELL Procedure: XR chest 2V EXAMINATION: XR chest 2V HISTORY: pneumonia COMPARISON: 02/18/2024, 07/07/2024 TECHNIQUE: Frontal FINDINGS: LUNGS: Stable hyperinflation. Scattered suture lines in both upper lung zones. Improvement in right basilar infiltrate VASCULATURE: No increased pulmonary vasculature. PLEURA: No pneumothorax, effusion, or pleural thickening. CARDIAC: No cardiomegaly or cardiac silhouette abnormality. MEDIASTINUM: No visible mass or adenopathy. BONES: No fracture or visible bone lesion. OTHER: Negative. XR/XR chest 2V IMPRESSION: Improvement in right basilar infiltrate Electronically authenticated by: ASAEL MALDONADO Date: 07/10/2024 10:27
--- NOTE | 2024-07-10 09:59 | CM.NOTE ---
Rounds made with Dr. Wyatt, no discharge today. Pt continues with c/o flank pain. UA obtained and will continue IV antibiotics and possible discharge to home tomorrow.
[2024-07-10 11:35] LABS: Glucometer 171 mg/dL (74-106)
[2024-07-10] MEDS: CEFTAZIDIME 1,000 MG in 0.9 % SODIUM CHLORIDE 50 ML 100 MG IV (15:12)
[2024-07-10 16:48] LABS: Glucometer 97 mg/dL (74-106)
[2024-07-10] MEDS: KETOROLAC TROMETHAMINE 30 MG/ML VIAL 15 MG IVP (17:04)
[2024-07-10 20:31] LABS: Glucometer 228 mg/dL (74-106)
[2024-07-10] MEDS: POLYETHYLENE GLYCOL 3350 17 GM POWDER PACKET PO (21:48)
[2024-07-10] MEDS: INSULIN ASPART 300 UNIT/3 ML PEN SUBQ (21:49)
[2024-07-10] MEDS: ATORVASTATIN CALCIUM 40 MG TABLET PO (21:50)
[2024-07-11] VITALS: BP 158/83; PULSE 88; TEMP 36.6; O2SAT 92
[2024-07-11] MEDS: ZOLPIDEM TARTRATE 5 MG TABLET PO (00:01)
[2024-07-11] MEDS: CLINDAMYCIN PHOSPHATE/D5W 600 MG/50 ML PREMIX 100 MG IV ×2 (03:11→08:44)
[2024-07-11 04:00] VITALS: BP 151/81; PULSE 90; TEMP 36.8; O2SAT 91
[2024-07-11] MEDS: METHYLPREDNISOLONE SOD SUCC PF 125 MG/2 ML VIAL 60 MG IVP (04:13)
[2024-07-11] MEDS: IPRATROPIUM/ALBUTEROL SULFATE 3 ML AMPUL.NEB IH (05:13)
[2024-07-11 05:16] VITALS: PULSE 74; O2SAT 90
[2024-07-11 05:17] VITALS: PULSE 74; O2SAT 90
[2024-07-11] MEDS: PREGABALIN 100 MG CAPSULE PO (05:56)
[2024-07-11 06:30] LABS: Basophils Percent Auto 0.1 % (0.2-2.0); Hematocrit 33.5 % (36.0-48.0); Hemoglobin 10.7 g/dL (12.0-16.0); Immature Granulocytes Abs Auto 0.09 10^3/uL (0.00-0.03); Immature Granulocytes Pct Auto 0.7 % (0.0-0.5); Lymphocytes Absolute Auto 0.1 10^3/uL (1.2-3.8); Lymphocytes Percent Auto 0.8 % (20.5-60.0); Mean Corpuscular HGB Conc 31.9 g/dL (29.9-35.2); Mean Corpuscular Hemoglobin 30.1 pg (26.7-34.0); Mean Corpuscular Volume 94.4 fL (81.0-99.0); Mean Platelet Volume 9.2 fL (9.5-13.5); Monocytes Absolute Auto 0.4 10^3/uL (0.3-0.8); Monocytes Percent Auto 2.7 % (1.7-12.0); Neutrophils Absolute Auto 12.3 10^3/uL (1.4-6.5); Neutrophils Percent Auto 95.7 % (43.0-75.0); Platelet Count 262 10^3/uL (150-450); Red Blood Count 3.55 10^6/uL (4.20-5.40); Red Cell Distribution Width 13.4 % (11.0-15.0); White Blood Count 12.9 10^3/uL (4.0-11.0)
[2024-07-11 06:58] LABS: Alanine Aminotransferase 17 U/L (14-59); Albumin Globulin Ratio 0.9; Albumin Level 2.7 g/dL (3.4-5.0); Alkaline Phosphatase 56 U/L (46-116); Anion Gap 13.2; Aspartate Amino Transferase 14 U/L (15-37); BUN Creatinine Ratio 22.9; Bilirubin Total 0.4 mg/dL (0.2-1.0); Calcium 8.8 mg/dL (8.5-10.1); Carbon Dioxide 25.9 mmol/L (21.0-32.0); Chloride 105 mmol/L (98-107); Estimated GFR (African America 37 (>=60 mL/min/1.73m^2); Estimated GFR (Non-African Ame 31 (>=60 mL/min/1.73m^2); Globulin 3.1 g/dL; Glucose 137 mg/dL (74-106); Potassium 5.1 mmol/L (3.5-5.1); Sodium 139 mmol/L (136-145); Total Protein 5.8 g/dL (6.4-8.2)
[2024-07-11 07:36] LABS: Glucometer 147 mg/dL (74-106)
[2024-07-11 07:51] LABS: BOX Test Reference Lab FIRELANDS
[2024-07-11] MEDS: GUAIFENESIN 600 MG TAB.ER.12H 1200 MG PO (08:45)
[2024-07-11] MEDS: SENNOSIDES/DOCUSATE SODIUM 1 TAB TABLET PO (08:45)
[2024-07-11] MEDS: OMEPRAZOLE 40 MG CAPSULE.DR PO (08:45)
[2024-07-11] MEDS: DULOXETINE HCL 30 MG CAPSULE.DR 90 MG PO (08:45)
[2024-07-11] MEDS: CHOLECALCIFEROL (VITAMIN D3) 25 MCG/1,000 UNITS TABLET 50 MCG PO (08:45)
[2024-07-11] MEDS: METOPROLOL TARTRATE 25 MG TABLET 12.5 MG PO (08:45)
[2024-07-11] MEDS: ASPIRIN 81 MG TABLET.DR PO (08:45)
[2024-07-11] MEDS: FERROUS SULFATE 325 MG TABLET PO (08:45)
[2024-07-11] MEDS: GLIPIZIDE 5 MG TABLET PO (08:45)
[2024-07-11] MEDS: POLYETHYLENE GLYCOL 3350 17 GM POWDER PACKET PO (08:45)
[2024-07-11] MEDS: MAGNESIUM OXIDE 400 MG TABLET PO (08:46)
[2024-07-11 08:52] VITALS: BP 163/86; PULSE 93; TEMP 36.7; O2SAT 95
--- NOTE | 2024-07-11 09:47 | CM.NOTE ---
Rounds made with Dr. Wyatt. Dr. Wyatt discussed discharge plans with Ratna. Ratna verbalized understanding. Plan is for discharge today w po antibiotics and tapering steroid.
--- NOTE | 2024-07-11 10:00 | P.DS_ITS ---
DS: Providers Provider Date of admission: 07/07/24 18:47 Primary care physician: Erasto Henry MD Consults: 07/07/24 18:47 Occupational Therapy Eval and Treat Routine Reason for consultation: Only if needed for Rehab Has provider been notified: No Physical Therapy Eval and Treat Routine Reason for consultation: Eval and Treat Has provider been notified: No DS: Diagnosis Discharge Diagnosis (1) Pneumonia: (2) Sepsis: (3) COPD exacerbation: (4) Diarrhea: (5) Nausea: (6) Right lower lobe pneumonia: Qualifiers: Pneumonia type: due to unspecified organism Qualified Code(s): J18.9 - Pneumonia, unspecified organism Plan Admission findings: Tachycardia, respiratory distress, uncontrolled hypertension, acute hypoxia with O2 sat of 83% on room air, severe leukocytosis with white blood cell count greater than 30 secondary to right lower lobe pneumonia leading to sepsis. Sepsis as outlined above secondary to right lower lobe pneumonia resulting in acute exacerbation of COPD-patient does not feel improved today at all with ambulation. Antibiotics were adjusted on 07/09/2024-white blood cell count is improved, will maintain current IV dosing, if improved tomorrow will likely discharge to home tomorrow Acute elevation in creatinine, not meeting criteria for an injury stage I- improved from previous day Diabetes mellitus-insulin sliding scale plus home medications-adjust sliding scale, reducing steroids may help Hypertension-continue with home medications GERD-continue with home medications Peripheral neuropathy-continue with home medications Moderate protein calorie malnutrition-diet management Right flank pain-urinalysis is essentially negative, but will check on culture Iron deficiency anemia-diet management and monitoring daily Admission status: Patient with failed outpatient treatment treatment of pneumonia, completed her 10-day course in 3 days after stopping and she is worse now with significant hypoxia leukocytosis and sepsis, medically necessary treatment will span 2 midnights. Inpatient status. ? ? DS: Summary Hospital Course Hospital Course: Patient admitted with acute exacerbation of COPD and pneumonia. Treated with IV antibiotics and aerosol treatments her white blood cell count was somewhat elevated over the first 2 days, we cut back on her steroids and that further elevated, antibiotics were adjusted 2 days ago, after changing to clindamycin and Fortaz, right blood cell count is improved over the last 2 days. She is been off of supplemental oxygen for the last 48 hours. At this point she is medically stable for discharge. Will discharge patient to home, on cefdinir although not quite equivalent to Fortaz, and clindamycin. See PCP next week. Medications see list. Time Spent with Patient Time attestation: Total time spent providing and/or coordinating discharge services: Exam Constitutional Vital Signs, click to edit/add: Last Vital Signs Temp 98.0 F 07/11/24 08:52 Pulse 93 H 07/11/24 08:52 Resp 16 07/11/24 08:52 BP 163/86 H 07/11/24 08:52 Pulse Ox 95 07/11/24 08:52 O2 Del Method Room Air 07/11/24 08:52 O2 Flow Rate 1 07/08/24 13:04 Documenting provider has reviewed patient's vital signs: yes Common normals: no apparent distress Chest Common normals: inspection of chest normal Respiratory Common normals: normal respiratory effort (Mid vocal) Auscultation: rhonchi (Much improved air exchange, minimal rhonchi) DS: Data Data Completed and Pending Labs on day of discharge: Labs from last 24 hours 07/11/24 07/11/24 07/10/24 07:35 06:23 20:20 WBC 12.9 H RBC 3.55 L Hgb 10.7 L Hct 33.5 L MCV 94.4 MCH 30.1 MCHC 31.9 RDW 13.4 Plt Count 262 MPV 9.2 L Neut % (Auto) 95.7 H Lymph % (Auto) 0.8 L [place] % (Auto) 2.7 Eos % (Auto) 0.0 L Baso % (Auto) 0.1 L Neut # (Auto) 12.3 H Lymph # (Auto) 0.1 L [place] # (Auto) 0.4 Eos # (Auto) 0.0 Baso # (Auto) 0.0 Abs Immat Gran (auto) 0.09 H Imm/Tot Granulo (auto) 0.7 H Sodium 139 Potassium 5.1 Chloride 105 Carbon Dioxide 25.9 Anion Gap 13.2 BUN 38.0 H Creatinine 1.66 H Est GFR ( Amer) 37 L Est GFR (Non-Af Amer) 31 L BUN/Creatinine Ratio 22.9 Glucose 137 H Calcium 8.8 Total Bilirubin 0.4 AST 14 L ALT 17 Alkaline Phosphatase 56 Total Protein 5.8 L Albumin 2.7 L Globulin 3.1 Albumin/Globulin Ratio 0.9 Ref Lab Order Date Ref Lab Test Name Ref Test Addition Info POC Glucose 147 H 228 H 07/10/24 07/10/24 07/09/24 16:43 11:33 10:56 WBC RBC Hgb Hct MCV MCH MCHC RDW Plt Count MPV Neut % (Auto) Lymph % (Auto) [place] % (Auto) Eos % (Auto) Baso % (Auto) Neut # (Auto) Lymph # (Auto) [place] # (Auto) Eos # (Auto) Baso # (Auto) Abs Immat Gran (auto) Imm/Tot Granulo (auto) Sodium Potassium Chloride Carbon Dioxide Anion Gap BUN Creatinine Est GFR ( Amer) Est GFR (Non-Af Amer) BUN/Creatinine Ratio Glucose Calcium Total Bilirubin AST ALT Alkaline Phosphatase Total Protein Albumin Globulin Albumin/Globulin Ratio Ref Lab Order Date 07/09/24 Ref Lab Test Name Urine culture Ref Test Addition Info [facility] POC Glucose 97 171 H Preliminary micro results at discharge 12/30/24 13:37 Blood Culture Result 1 - Preliminary Blood NO GROWTH AT 36-48 HOURS. FINAL TO FOLLOW. 07/07/24 13:32 Blood Culture Result 2 - Preliminary Blood NO GROWTH AT 36-48 HOURS. FINAL TO FOLLOW. Discharge Plan Discharge Disposition: Home, Self-Care Discharge Medications: New benzonatate 100 mg Capsule 200 mg PO Q8H PRN (Reason: Cough) Qty: 30 0RF cefdinir 300 mg capsule 600 mg PO DAILY Qty: 20 0RF prednisone 10 mg tablet 50 mg PO DAILY Qty: 47 0RF Rx Instructions: 5/day for 3 days. 4/day for 3 days, 3/day for 3 days, 2/day for 3 days, 1/day for 3 days, 1/2 /day for 4 days clindamycin HCl 300 mg capsule 300 mg PO Q6H 10 Days Qty: 40 0RF Continued atorvastatin 40 mg tablet 40 mg PO .QHS metoprolol tartrate 25 mg tablet 12.5 mg PO BID omeprazole 40 mg capsule,delayed release(DR/EC) 40 mg PO .BIDAC duloxetine 30 mg capsule,delayed release(DR/EC) 90 mg PO DAILY aspirin 81 mg tablet,delayed release (DR/EC) 81 mg PO DAILY eszopiclone [Lunesta] 3 mg tablet 3 mg PO .QHS PRN (Reason: sleep) melatonin 5 mg tablet 5 mg PO .QHS pregabalin [Lyrica] 100 mg capsule 100 mg PO TID potassium chloride 20 mEq tablet extended release 20 meq PO DAILY PRN (Reason: hypokalemia) ferrous sulfate 325 mg (65 mg iron) tablet 325 mg PO DAILY cranberry 500 mg capsule 500 mg PO DAILY Rx Instructions: administer with a meal cholecalciferol (vitamin D3) 50 mcg (2,000 unit) capsule 50 mcg PO DAILY estradiol 0.01 % (0.1 mg/gram) cream 1 appful VAGINAL .QWK glipizide 5 mg tablet 5 mg PO DAILY ipratropium-albuterol 0.5 mg-3 mg(2.5 mg base)/3 mL Solution For Nebulization 3 ml inhalation Q6H PRN (Reason: shortness of breath or wheezing) 30 Days Qty: 1 0RF Rx Instructions: please dispense #1 box prednisone 20 mg tablet 20 mg PO BID 7 Days Qty: 14 0RF albuterol sulfate 90 mcg/actuation HFA aerosol inhaler 2 puff INHALATION Q4H PRN (Reason: shortness of breath or wheezing) guaifenesin 600 mg tablet extended release 12hr 1,200 mg PO BID Activity: resume usual activities as tolerated Diet: advance to your usual diet Print Language: Azeri Patient Instructions: Benzonatate (By mouth), Clindamycin (By mouth), Prednisone (By mouth), Cefdinir (By mouth), Sepsis (DC), Pneumonia (DC) Forms: Portal Instructions Follow Up Appointments: Jul.17 @ 3:15pm with Dr. Henry [phone] Discharge Date/Time: 07/11/24 10:25
--- NOTE | 2024-07-13 08:19 | PC.NURSE ---
Patient urine culture completed from collection on 07/09/24 and no growth, no change in treatment.
--- NOTE | 2024-07-14 14:59 | CM.DCFOLLOWU ---
07/14- 1st attempt. NO answer
== END 2024-07-11 10:25 | disposition home or self-care (01) | DRG 871 ==
LOC: ER 11:53 → MS 15:36
PROVIDERS: Admitting Provider Family Medicine; Emergency Provider Emergency Medicine; PCP Family Medicine; Visit Provider Family Medicine
DX: A41.9 Sepsis, unspecified organism (principal); J18.9 Pneumonia, unspecified organism; J44.1 Chronic obstructive pulmonary disease with (acute) exacerbation; J44.0 Chronic obstructive pulmonary disease with (acute) lower respiratory infection; E44.0 Moderate protein-calorie malnutrition; D50.9 Iron deficiency anemia, unspecified; E11.42 Type 2 diabetes mellitus with diabetic polyneuropathy; I12.9 Hypertensive chronic kidney disease with stage 1 through stage 4 chronic kidney disease, or unspecified chronic kidney disease; K21.9 Gastro-esophageal reflux disease without esophagitis; N18.9 Chronic kidney disease, unspecified; R09.02 Hypoxemia; Z79.82 Long term (current) use of aspirin; Z79.84 Long term (current) use of oral hypoglycemic drugs; Z79.899 Other long term (current) drug therapy; Z91.040 Latex allergy status; Z88.1 Allergy status to other antibiotic agents
CPT/HCPCS: 36415; 71045; 71046; 74176; 80053; 81001; 82948; 83605; 83735; 84484; 85007; 85025; 85027; 85378; 85610; 87040; 87070; 87086; 87205; 87804; 87811; 93005; 94640; 94667; 94668; 94761; 96365; 96366; 96368; 96375; 97165; 99285; J0713; J0743; J1885; J2270; J2405; J2919; J3475

== ENCOUNTER 2024-08-28 15:33 | Outpatient (OUT) | payer OTHER, MEDICARE, SELFPAY | END 2024-08-28 15:34 | disposition home or self-care (01) | LOC: RAD 15:33 | PROVIDERS: PCP Family Medicine; Visit Provider Family Medicine | DX: J20.8 Acute bronchitis due to other specified organisms (principal); J44.9 Chronic obstructive pulmonary disease, unspecified | CPT/HCPCS: 71046 ==

== ENCOUNTER 2024-09-11 15:00 | Emergency (ER) | payer OTHER, MEDICARE, SELFPAY ==
[2024-09-11 15:08] VITALS: BP 205/118; PULSE 87; TEMP 36.4; O2SAT 98; BMI 17.5
[2024-09-11 15:16] VITALS: BP 180/90
--- NOTE | 2024-09-11 15:16 | ED.EXTPRO1 ---
HPI - Extremity Problem General Chief complaint: Extremity Problem, Nontraumatic Stated complaint: l hip pain Time Seen by Provider: 09/11/24 15:10 Source: patient Mode of arrival: Wheelchair Limitations: no limitations History of Present Illness HPI Narrative: Patient is a 69-year-old female with a history of diabetes, COPD who presents to this emergency department for left hip pain that began yesterday. She denies any mechanism of injury or trauma. She states she has a history of arthritis. Pain radiates from the left hip joint into the left thigh. She does not feel the leg is swollen and there has not been any redness or open wounds. She has noted to be hypertensive at initial interview, she states she takes her blood pressure medication sometimes . She does not take any medications for pain at home, she states she has been using Tylenol without improvement. She has not been seen by her PCP for the symptoms. She denies any peripheral paresthesias into the leg. Related Data Home Medications ?Medication ?Instructions ?Recorded ?Confirmed aspirin 81 mg tablet,delayed 81 mg PO DAILY 03/06/23 07/07/24 release atorvastatin 40 mg tablet 40 mg PO .QHS 03/06/23 07/07/24 duloxetine 30 mg capsule,delayed 90 mg PO DAILY 03/06/23 07/07/24 release eszopiclone 3 mg tablet (Lunesta) 3 mg PO .QHS PRN sleep 03/06/23 07/07/24 melatonin 5 mg tablet 5 mg PO .QHS 03/06/23 07/07/24 metoprolol tartrate 25 mg tablet 12.5 mg PO BID 03/06/23 07/07/24 omeprazole 40 mg capsule,delayed 40 mg PO .BIDAC 03/06/23 07/07/24 release pregabalin 100 mg capsule (Lyrica) 100 mg PO TID 03/06/23 07/07/24 albuterol sulfate 90 mcg/actuation 2 puff inhalation Q4H PRN 12/18/23 07/07/24 aerosol inhaler shortness of breath or wheezing guaifenesin 600 mg tablet, 1,200 mg PO BID 12/18/23 07/07/24 extended release 12 hr cholecalciferol (vitamin D3) 50 50 mcg PO DAILY 02/14/24 07/07/24 mcg (2,000 unit) capsule cranberry 500 mg capsule 500 mg PO DAILY 02/14/24 07/07/24 ferrous sulfate 325 mg (65 mg 325 mg PO DAILY 02/14/24 07/07/24 iron) tablet potassium chloride 20 mEq 20 meq PO DAILY PRN hypokalemia 02/14/24 07/07/24 tablet,extended release estradiol 0.01% (0.1 mg/gram) 1 appful vaginal .QWK AT BEDTIME 06/06/24 07/07/24 vaginal cream glipizide 5 mg tablet 5 mg PO DAILY 06/26/24 07/07/24 Previous Rx's ?Medication ?Instructions ?Recorded ipratropium 0.5 mg-albuterol 3 mg 3 ml inhalation Q6H PRN shortness 06/27/24 (2.5 mg base)/3 mL nebulization of breath or wheezing 30 days #1 soln kit prednisone 20 mg tablet 20 mg PO BID 7 days #14 tabs 06/27/24 benzonatate 100 mg capsule 200 mg (2 x 100 mg) PO Q8H PRN 07/11/24 Cough #30 caps cefdinir 300 mg capsule 600 mg (2 x 300 mg) PO DAILY #20 07/11/24 caps clindamycin HCl 300 mg capsule 300 mg PO Q6H 10 days #40 caps 07/11/24 prednisone 10 mg tablet 50 mg (5 x 10 mg) PO DAILY #47 tabs 07/11/24 hydrocodone 5 mg-acetaminophen 325 1 tab PO Q6H PRN pain 3 days #12 09/11/24 mg tablet tabs methocarbamol 500 mg tablet 500 mg PO TID PRN muscle pain #15 09/11/24 tabs Allergies Allergy/AdvReac Type Severity Reaction Status Date / Time azithromycin (From Zithromax Allergy Severe Unknown Verified 02/18/24 18:30 Z-Leonardo) Latex, Natural Rubber Allergy Severe Unknown Verified 02/18/24 18:30 Review of Systems ROS Constitutional Denies: fever or chills Ears, nose, mouth, and throat Denies: throat pain or nasal congestion Cardiovascular Denies: chest pain Respiratory Denies: shortness of breath or cough Gastrointestinal Denies: nausea or vomiting Musculoskeletal Reports: extremity pain and joint pain; Denies: back pain or neck pain Integumentary/Breast Denies: rash Neurological Denies: numbness in extremities or weakness in extremities Hematologic/Lymphatic Denies: easy bruising or easy bleeding PFSH PFSH Medical History Right lower lobe pneumonia ?J18.9 - Pneumonia, unspecified organism (ICD-10) Acute pyelonephritis ?N10 - Acute pyelonephritis (ICD-10) Sepsis ?A41.9 - Sepsis, unspecified organism (ICD-10) Immunosuppressed status ?D84.9 - Immunodeficiency, unspecified (ICD-10) Chronic steroid use Temporal arteritis ?M31.6 - Other giant cell arteritis (ICD-10) CKD stage 3b, GFR 30-44 ml/min ?N18.32 - Chronic kidney disease, stage 3b (ICD-10) Chronic respiratory failure with hypoxia ?J96.11 - Chronic respiratory failure with hypoxia (ICD-10) History of tobacco abuse ?Z87.891 - Personal history of nicotine dependence (ICD-10) CAD (coronary artery disease) ?I25.10 - Atherosclerotic heart disease of [place] coronary artery without angina pectoris (ICD-10) Essential hypertension ?I10 - Essential (primary) hypertension (ICD-10) Type 2 diabetes mellitus with hyperglycemia ?E11.65 - Type 2 diabetes mellitus with hyperglycemia (ICD-10) Polymyalgia rheumatica ?M35.3 - Polymyalgia rheumatica (ICD-10) Non-ST elevated myocardial infarction (non-STEMI) ?I21.4 - Non-ST elevation (NSTEMI) myocardial infarction (ICD-10) Hyperlipidemia ?E78.5 - Hyperlipidemia, unspecified (ICD-10) Hyperglycemia, drug-induced ?R73.9 - Hyperglycemia, unspecified (ICD-10) ?T50.905A - Adverse effect of unspecified drugs, medicaments and biological substances, initial encounter (ICD-10) COPD (chronic obstructive pulmonary disease) ?J44.9 - Chronic obstructive pulmonary disease, unspecified (ICD-10) Depression ?F32.A - Depression, unspecified (ICD-10) Acid reflux ?K21.9 - Gastro-esophageal reflux disease without esophagitis (ICD-10) Nerve pain ?M79.2 - Neuralgia and neuritis, unspecified (ICD-10) Back pain ?M54.9 - Dorsalgia, unspecified (ICD-10) Thoracotomy scar of right chest ?L90.5 - Scar conditions and fibrosis of skin (ICD-10) History of oxygen administration ?Z99.81 - Dependence on supplemental oxygen (ICD-10) UTI (urinary tract infection), bacterial ?N39.0 - Urinary tract infection, site not specified (ICD-10) ?A49.9 - Bacterial infection, unspecified (ICD-10) Urethral stenosis Surgical History Status post bilateral cataract extraction ?Z98.41 - Cataract extraction status, right eye (ICD-10) ?Z98.42 - Cataract extraction status, left eye (ICD-10) 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 [part of] (ICD-10) Stented coronary artery ?Z95.5 - Presence of coronary angioplasty implant and graft (ICD-10) Family History Mother Family history of COPD (chronic obstructive pulmonary disease) Brother Family history of COPD (chronic obstructive pulmonary disease) Father Family history of COPD (chronic obstructive pulmonary disease) Family history of stroke Social History Within the past year, how often did you have a drink containing alcohol: never Within the past year, how many standard drinks containing alcohol did you have on a typical day: 1 or 2 Within the past year, how often did you have six or more drinks on one occasion: never Total score: 0 Score interpretation: A score less than 3 is consistent with normal alcohol consumption. Smoking status: Former smoker Non-prescribed substance use: denies use Previous occupational history: disabled Highest level of school completed/degree received: Associate degree: academic program Are you now , , , , never or living with a partner: Little interest or pleasure in doing things: not at all Feeling down, depressed, or hopeless: not at all Feel stressed/tense/nervous/anxious/difficulty sleeping: only a little Do you think of yourself as: straight/heterosexual Gender Identity: female Exam Narrative Exam Narrative: Gen.: Awake, alert, in no distress Head: Normocephalic, atraumatic ENT: Moist mucous membranes Respiratory: No respiratory distress Extremities: Diffuse tenderness of the left lateral and anterior hip joint with no obvious deformity. Pelvis is stable. No bony tenderness of the left knee or lower leg. Normal flexion and extension at the left foot. No internal or external rotation of the left leg. No obvious deformity. Psych: Normal mood and affect Neuro: No focal neuro deficit Skin: Warm, dry, intact Constitutional Vital Signs, click to edit/add: Last Vital Signs Temp 97.6 F 09/11/24 15:08 Pulse 87 09/11/24 15:08 Resp 16 09/11/24 15:08 BP 164/86 H 09/11/24 16:07 Pulse Ox 98 09/11/24 15:08 O2 Del Method Room Air 09/11/24 15:08 Course Vital Signs Vital signs: Vital Signs Temperature 97.6 F 09/11/24 15:08 Pulse Rate 87 09/11/24 15:08 Respiratory Rate 16 09/11/24 15:08 Blood Pressure 205/118 H 09/11/24 15:08 Pulse Oximetry 98 09/11/24 15:08 Oxygen Delivery Method Room Air 09/11/24 15:08 Temperature 97.6 F 09/11/24 15:08 Pulse Rate 87 09/11/24 15:08 Respiratory Rate 16 09/11/24 15:08 Blood Pressure 164/86 H 09/11/24 16:07 Pulse Oximetry 98 09/11/24 15:08 Oxygen Delivery Method Room Air 09/11/24 15:08 MDM - Extremity (Nontraumatic) MDM Narrative Medical decision making narrative: Patient medicated for pain in the ER, blood pressure improved, x-rays of the pelvis and femur with no evidence of acute bony abnormality. Patient placed on a short course of analgesics and muscle relaxants for home. Follow-up with orthopedics as needed and return to the ER if symptoms change or worsen SUPERVISED APC VISIT, PHYSICIAN ATTESTATION: Based on the medical record the care appears appropriate. ? Medical Records Attestation: I reviewed the patient's medical records. Imaging Data XR femur/XR pelvis: Attestation: I have reviewed the pertinent imaging results. Discharge Plan Discharge Chief Complaint: Extremity Problem, Nontraumatic Clinical Impression: Acute pain of left hip Patient Disposition: Home, Self-Care Time of Disposition Decision: 16:04 Condition: Good Prescriptions / Home Meds: New hydrocodone-acetaminophen 5-325 mg tablet 1 tab PO Q6H PRN (Reason: pain) 3 Days Qty: 12 0RF Rx Instructions: DX: M25.552 methocarbamol 500 mg tablet 500 mg PO TID PRN (Reason: muscle pain) Qty: 15 0RF No Action atorvastatin 40 mg tablet 40 mg PO .QHS metoprolol tartrate 25 mg tablet 12.5 mg PO BID omeprazole 40 mg capsule,delayed release(DR/EC) 40 mg PO .BIDAC duloxetine 30 mg capsule,delayed release(DR/EC) 90 mg PO DAILY aspirin 81 mg tablet,delayed release (DR/EC) 81 mg PO DAILY eszopiclone [Lunesta] 3 mg tablet 3 mg PO .QHS PRN (Reason: sleep) melatonin 5 mg tablet 5 mg PO .QHS pregabalin [Lyrica] 100 mg capsule 100 mg PO TID potassium chloride 20 mEq tablet extended release 20 meq PO DAILY PRN (Reason: hypokalemia) ferrous sulfate 325 mg (65 mg iron) tablet 325 mg PO DAILY cranberry 500 mg capsule 500 mg PO DAILY Rx Instructions: administer with a meal cholecalciferol (vitamin D3) 50 mcg (2,000 unit) capsule 50 mcg PO DAILY estradiol 0.01 % (0.1 mg/gram) cream 1 appful VAGINAL .QWK glipizide 5 mg tablet 5 mg PO DAILY ipratropium-albuterol 0.5 mg-3 mg(2.5 mg base)/3 mL Solution For Nebulization 3 ml inhalation Q6H PRN (Reason: shortness of breath or wheezing) 30 Days Qty: 1 0RF Rx Instructions: please dispense #1 box prednisone 20 mg tablet 20 mg PO BID 7 Days Qty: 14 0RF albuterol sulfate 90 mcg/actuation HFA aerosol inhaler 2 puff INHALATION Q4H PRN (Reason: shortness of breath or wheezing) guaifenesin 600 mg tablet extended release 12hr 1,200 mg PO BID benzonatate 100 mg Capsule 200 mg PO Q8H PRN (Reason: Cough) Qty: 30 0RF cefdinir 300 mg capsule 600 mg PO DAILY Qty: 20 0RF prednisone 10 mg tablet 50 mg PO DAILY Qty: 47 0RF Rx Instructions: 5/day for 3 days. 4/day for 3 days, 3/day for 3 days, 2/day for 3 days, 1/day for 3 days, 1/2 /day for 4 days clindamycin HCl 300 mg capsule 300 mg PO Q6H 10 Days Qty: 40 0RF Print Language: Upper Sorbian Instructions: Arthralgia (ED) Referrals: Erasto Henry MD [Primary Care Provider] - 1 week Kirby Preciado MD [Physician] - As needed
[2024-09-11] MEDS: OXYCODONE HCL/ACETAMINOPHEN 5MG/325MG 1 TAB PO (15:25)
[2024-09-11] MEDS: METHOCARBAMOL 500 MG TABLET PO (15:26)
--- NOTE | 2024-09-11 15:28 | PC.NURSE ---
Pain to left hip, no known injury, no redness, swelling or abnormality.
[2024-09-11 16:07] VITALS: BP 164/86
[2024-09-11 16:25] VITALS: BP 132/87; PULSE 87; O2SAT 98
== END 2024-09-11 16:25 | disposition home or self-care (01) ==
PROVIDERS: Emergency Provider Emergency Medicine; PCP Family Medicine
DX: M25.552 Pain in left hip (principal); E11.9 Type 2 diabetes mellitus without complications; J44.9 Chronic obstructive pulmonary disease, unspecified; Z79.84 Long term (current) use of oral hypoglycemic drugs; Z90.2 Acquired absence of lung [part of]; Z95.5 Presence of coronary angioplasty implant and graft; Z87.891 Personal history of nicotine dependence
CPT/HCPCS: 72170; 73552; 99284

== ENCOUNTER 2024-09-26 18:51 | Emergency (ER) | payer OTHER, MEDICARE, SELFPAY ==
--- OUTSIDE RECORDS SUMMARY | 2024-09-26 19:00 | XMS_ITS | CCD ---
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 Name Role Phone IMAN WILLIS Admitting Unavailable [...] Unavailable MD Erasto Burroughs Primary Care Provider [phone] MD Remy Givens Attending Provider Erasto Burroughs MD Primary Care Provider [phone] MERZA, NOORALDIN Referring Unavailable JARRODUKAJER BECKER Attending Unavailable JER NEFF Attending Unavailable AVINASH SERRANO Referring Unavailable KAUSHAL, JAZMIN Admitting Unavailable HORKONG HOWARD Attending Unavailable JORGE BEAULIEUAR Referring Unavailable MERZA, NOORALDIN Referring Unavailable MERZA, NOORALDIN Referring Unavailable Erasto Burroughs MD Primary Care Provider [phone] Ihsan BROWN Attending Unavailable Ihsan BROWN Attending Unavailable Ihsan BROWN Attending Unavailable Iman Jeter Attending Gt Baires MD Attending Provider Gt Wyatt Admitting Unavailable Gt Wyatt Attending Unavailable Gt Wyatt Attending Unavailable Gt Wyatt Admitting Unavailable ERASTO BURROUGHS Attending Unavailable ERASTO BURROUGHS Attending Unavailable ERASTO BURROUGHS Attending Unavailable ERASTO BURROUGHS Attending Unavailable Allergies Allergy Classification Reported Allergen(s) Allergy Type Date of Onset Reaction(s) Facility (6 sources) Azithromycin; Translations: [AZITHROMYCIN] Drug Allergy 9 [facility] Repository (7 sources) Latex; Translations: [LATEX] Drug allergy (disorder) 7 [facility] Repository (17 sources) Azithromycin Drug Allergy 3 [facility] (17 sources) Latex Allergy to substance 3 [facility] (1 source) Azithromycin; Translations: [Zithromax] Drug Allergy [facility] Repository (1 source) Azithromycin Drug Allergy 2 [facility] Repository (1 source) Latex Drug allergy (disorder) 2 [facility] Repository Medications Current Medications Medication Drug Class(es) Dates Sig (Normalized) Sig (Original) acetaminophen 500 mg oral tablet (3 sources) Start: 04-06-2022 Acetaminophen (Tylenol Ex Str Rapid Release) 500 mg Tablet Active 1000 MG PO Q6H as needed for Pain April 05, 2022 11:00pm albuterol 0.833 mg/ml / ipratropium bromide 0.167 mg/ml inhalation solution (3 sources) Anticholinergic, beta2-Adrenergic Agonist Start: 04-06-2022 take 1 mL by inhalation four times daily Ipratropium-Albutero l 0.5 mg-3 mg(2.5 mg base)/3 mL Solution For Nebulization Active 0.5 ML INHALATION Four times daily April 05, 2022 11:00pm arginine 500 mg oral tablet (17 sources) Start: 05-17-2023 take 1 tablet by mouth every twelve hours arginine 500 MG tablet Take 1 tablet by mouth every 12 (twelve) hours 05/17/2023 Active aspirin 81 mg delayed release oral tablet (19 sources) Platelet Aggregation Inhibitor, Nonsteroidal Anti-inflammatory Drug Start: 04-06-2022 take 1 tablet by mouth once daily Aspirin 81 mg Tablet,Delayed Release (Dr/Ec) Active 81 MG PO Daily April 05, 2022 11:00pm atorvastatin 40 mg oral tablet (10 sources) HMG-CoA Reductase Inhibitor Start: 04-06-2022 atorvastatin (Lipitor) 40 MG tablet 03/17/2024 Active cholecalciferol 0.05 mg oral capsule (15 sources) Vitamin D Start: 08-01-2024 take 1 capsule by mouth once daily in the morning cholecalciferol (Vitamin D-3) 50 MCG (1999) capsule Indications: Vitamin D deficiency TAKE 1 CAPSULE BY MOUTH EVERY MORNING 90 capsule 3 08/01/2024 Active Start: 06-26-2023 End: 06-26-2024 take 1 capsule by mouth once in the morning cholecalciferol (Vitamin D-3) 50 MCG (1999) capsule Indications: Vitamin D deficiency Take 1 capsule (50 mcg) by mouth in the morning. 90 capsule 3 06/26/2023 06/26/2024 Active Start: 04-06-2022 take 1 tablet by shayna once daily Cholecalciferol (Vitamin D3) 50 mcg (2,000 unit) Tablet Active 50 MCG PO Daily April 05, 2022 11:00pm DULoxetine 30 mg delayed release oral capsule (20 sources) Serotonin and Norepinephrine Reuptake Inhibitor Start: 04-26-2023 take 3 capsules by mouth in the morning DULoxetine (Cymbalta) [address] capsule Take 3 capsules by mouth in the morning. 04/26/2023 Active Start: 04-06-2022 take 3 capsules by m outh once daily Duloxetine 30 mg Capsule, Delayed Rel Sprinkle Active 90 MG PO Daily April 05, 2022 11:00pm Start: 04-06-2022 take 90 mg by mouth once daily Duloxetine Active 90 MG PO Daily April 05, 2022 11:00pm eszopiclone 3 mg oral tablet (20 sources) Start: 04-06-2022 take 1 tablet by [...] 06/26/2024 Discontinued glipiZIDE 5 mg oral tablet (15 sources) Sulfonylurea Start: 03-12-2024 take 1 tablet by mouth once daily glipiZIDE (Glucotrol) 5 MG tablet Indications: Type 2 diabetes mellitus with hyperglycemia, without long-term current use of insulin ([facility]) TAKE 1 TABLET(5 MG) BY MOUTH DAILY 90 tablet 3 03/12/2024 Active ipratropium bromide 0.2 mg/ml inhalation solution (17 sources) Anticholinergic ipratropium (Atrovent) 0.02 % nebulizer solution Take 0.5 mg by nebulization every 6 (six) hours Active 200 actuat levalbuterol 0.045 mg/actuat metered dose inhaler (17 sources) beta2-Adrenergic Agonist take 2 puff(s) by inhalation every four hours for wheezing levalbuterol (Xopenex HFA) 45 MCG/ACT inhaler Inhale 2 puffs every 4 (four) hours if needed for wheezing Active levoFLOXacin 750 mg oral tablet (2 sources) Quinolone Antimicrobial Start: 08-28-2024 End: 09-04-2024 take 1 tablet by mouth once daily levoFLOXacin (Levaquin) 750 MG tablet Indications: Acute bronchitis due to other specified organisms Take 1 tablet (750 mg) by mouth Daily for 7 days 7 tablet 08/28/2024 09/04/2024 Active melatonin 5 mg oral tablet (3 sources) Start: 04-06-2022 take 1 tablet by mouth at bedtime as needed for sleep Melatonin 5 mg Tablet Active 5 MG PO Bedtime as needed for Sleep April 05, 2022 11:00pm metoprolol tartrate 25 mg oral tablet (20 sources) beta-Adrenergic Joslyn Start: 06-08-2023 take 0.5 tablet by mouth in the morning metoprolol tartrate (Lopressor) 25 MG tablet Take 0.5 tablets by mouth in the morning and 0.5 tablets before bedtime. 06/08/2023 Active Start: 04-06-2022 Metoprolol Tar trate 25 mg Tablet Active 12.5 MG PO Q12H April 05, 2022 11:00pm Start: 04-06-2022 take 12.5 mg by mout h every twelve hours Metoprolol Tartrate Active 12.5 MG PO Q12H April 05, 2022 11:00pm 10 actuat olodaterol 0.0025 mg/actuat / tiotropium 0.0025 mg/actuat inhalation spray (2 sources) Anticholinergic, beta2-Adrenergic Agonist Start: 08-06-2024 tiotropium-olodaterol (Stiolto Respimat) 2.5-2.5 MCG/ACT aerosol solution inhaler 1 (one) time each day at the same time 08/06/2024 Active omeprazole 40 mg delayed release oral capsule (17 sources) Proton Pump Inhibitor Start: 08-29-2023 End: 08-28-2024 take 1 capsule by mouth in the morning omeprazole (PriLOSEC) [address] capsule Indications: Hyponatremia Take 1 capsule (40 mg) by mouth in the morning and 1 capsule (40 mg) in the evening. Take before meals. 180 capsule 3 08/29/2023 Active take 1 capsule by mouth before m ealtime omeprazole (PriLOSEC) [address] capsule Take 1 capsule by mouth in the morning. Take before meals. 0 Active ondansetron 4 mg disintegrating oral tablet (17 sources) Serotonin-3 Receptor Antagonist Start: 03-21-2023 take 1 tablet by mouth every six hours as needed ondansetron ODT (Zofran-ODT) 4 MG disintegrating tablet Take 1 tablet by mouth every 6 (six) hours if needed 03/21/2023 Active pantoprazole 40 mg delayed release oral tablet (3 sources) Proton Pump Inhibitor Start: 04-06-2022 take 1 tablet by mouth once daily Pantoprazole 40 mg Tablet,Delayed Release (Dr/Ec) Active 40 MG PO Daily April 05, [...] 05/30/2023 Active predniSONE 10 mg oral tablet (5 sources) Start: 08-28-2024 take 6 tablets by mouth once daily, then take 4 tablets by mouth once daily, then take 2 tablets by mouth once daily, then take 1 tablet by mouth once daily predniSONE (Deltasone) 10 MG tablet Indications: Acute bronchitis due to other specified organisms 6 PO daily x 3 days, 4 PO daily x 3 days, 2 PO daily x 3 days, 1 PO daily x 3 days 39 tablet 08/28/2024 Active Start: 04-06-2022 take 1 tablet by shayna th once daily Prednisone 10 mg Tablet Active 10 MG PO Daily April 05, 2022 11:00pm pregabalin 100 mg oral capsule (20 sources) Start: 04-06-2022 End: 04-30-2024 take 1 capsule by mouth three times daily pregabalin (Lyrica) 100 MG capsule Indications: DDD (degenerative disc disease), lumbar TAKE 1 CAPSULE BY MOUTH THREE TIMES DAILY 270 capsule 04/30/2024 Active traMADol hydrochloride 50 mg oral tablet (2 sources) Opioid Agonist Start: 07-17-2024 End: 07-24-2024 take 1 tablet by mouth four times daily as needed for pain traMADol (Ultram) 50 MG tablet Indications: Pleurisy Take 1 tablet (50 mg) by mouth 4 (four) times a day as needed for severe pain for up to 7 days 28 tablet 07/17/2024 07/24/2024 Active Completed/Discontinued Medications Medication Drug Class(es) Dates Sig (Normalized) Sig (Original) clopidogrel 75 mg oral tablet (12 sources) [id number] Platelet Inhibitor Start: 04-06-2022 End: 06-26-2024 take 1 tablet by mouth once daily Clopidogrel 75 mg Tablet Discontinued 75 MG PO Daily April 05, 2022 11:00pm June 26, 2023 1:30pm Fluticasone Furoate-Vilanterol (3 sources) Corticosteroid, beta2-Adrenergic Agonist Start: 04-06-2022 End: 06-26-2023 Fluticasone Furoate-Vilanterol 200-25 mcg/dose Blister With Device Discontinued 1 INH INHALATION Daily April 05, 2022 11:00pm June 26, 2023 1:31pm Start: 04-06-2022 End: 06-26-2023 Fluticasone Furoate-Vilanter ol Discontinued 1 INH INHALATION Daily April 05, 2022 11:00pm June 26, 2023 1:31pm itraconazole 100 mg oral capsule (3 sources) Azole Antifungal Start: 07-22-2024 End: 08-28-2024 take 2 capsules by mouth in the morning itraconazole (Sporanox) 100 MG capsule Indications: Aspergillus pneumonia (CMS/HCC) Take 2 capsules (200 mg) by mouth in the morning and 2 capsules (200 mg) before bedtime. 120 capsule 2 07/22/2024 08/28/2024 Discontinued 24 hr nicotine 0.875 mg/hr transdermal system (3 sources) Cholinergic Nicotinic Agonist Start: 04-06-2022 End: 06-26-2023 apply 1 dose transdermal route every twenty-four hours Nicotine 21 mg/24 hr Patch 24 Hour Discontinued 1 PATCH TRANSDERML Daily April 05, 2022 11:00pm June 26, 2023 1:31pm Start: 04-06-2022 End: 06-26-2023 apply 1 dose transdermal route once daily Nicotine Discontinued 1 PATCH TRANSDERML Daily April 05, 2022 11:00pm June 26, 2023 1:31pm 24 hr NIFEdipine 30 mg extended release oral tablet (3 sources) Dihydropyridine Calcium Channel Joslyn Start: 04-06-2022 End: 06-26-2023 take 1 tablet by mouth once daily Nifedipine 30 mg Tablet Extended Release Discontinued 30 MG PO Daily April 05, 2022 11:00pm June 26, 2023 1:32pm Problems Active Problems Problem Classification Problem Date Documented Date Episodic/Chronic Acute bronchitis (4 sources) Acute infective bronchitis; Translations: [Acute bronchitis due to other specified organisms] Onset: 08-28-2024 08-28-2024 Episodic Acute myocardial infarction (2 sources) Non-ST elevation (NSTEMI) myocardial infarction; Translations: [Non-ST elevation (NSTEMI) myocardial infarction] Onset: 06-04-2023 Chronic Chronic obstructive pulmonary disease and bronchiectasis (20 sources) Chronic obstructive pulmonary disease, unspecified; Translations: [Emphysema, unspecified] Onset: 12-18-2021 Resolved: 08-28-2024 08-27-2023 Chronic Coronary atherosclerosis and other heart disease (20 sources) Atherosclerotic heart disease of [place] coronary artery without angina pectoris; Translations: [Coronary occlusion] Onset: 03-08-2022 Chronic Coronary atherosclerosis and other heart disease (2 sources) Presence of coronary angioplasty implant and graft; Translations: [Presence of coronary angioplasty implant and graft] Onset: 01-07-2024 Episodic Deficiency and other anemia (1 source) Iron deficiency anemia, unspecified; Translations: [IRON DEFICIENCY ANEMIA, UNSPECIFIED] Onset: 03-08-2022 Episodic Diabetes mellitus with complications (18 sources) Type 2 diabetes mellitus with hyperglycemia; Translations: [Hyperglycemia due to type 2 diabetes mellitus] Onset: 03-16-2022 08-27-2023 Chronic Diabetes mellitus without complication (1 source) Type 2 diabetes mellitus without complications; Translations: [TYPE 2 DM WITHOUT COMPLICATIONS] Onset: 05-01-2022 Chronic Diabetes mellitus without complication (1 source) Hyperglycemia, unspecified; Translations: [HYPERGLYCEMIA, UNSPECIFIED] Onset: 03-08-2022 Episodic Disorders of lipid metabolism (17 sources) Pure hypercholesterolemia, unspecified; Translations: [Dyslipidemia] Onset: 05-01-2022 08-27-2023 Chronic Esophageal disorders (20 sources) Esophageal dysmotility; Translations: [Dyskinesia of esophagus] Onset: 08-27-2023 08-27-2023 Chronic Essential hypertension (20 sources) Essential (primary) hypertension; Translations: [Benign essential hypertension] Onset: 03-08-2022 Chronic Fever of unknown origin (12 sources) Fever; Translations: [Fever, unspecified] Onset: 06-26-2024 06-26-2024 Episodic Fluid and electrolyte disorders (20 sources) Dehydration; Translations: [Hyponatremia] Onset: 12-18-2021 06-14-2023 Episodic Mood disorders (1 source) Major depressive disorder, single episode, unspecified; Translations: [ANDRES DEPRESS D/O SINGLE EPIS UNS] Onset: 05-01-2022 Chronic Mood disorders (1 source) Mood disorders; Translations: [DEPRESSION, UNSPECIFIED] Onset: 03-08-2022 Mycoses (3 sources) Pneumonia in aspergillosis; Translations: [Aspergillosis, unspecified] Onset: 07-22-2024 07-22-2024 Episodic Noninfectious gastroenteritis (16 sources) Collagenous colitis; Translations: [Collagenous colitis] Onset: 08-27-2023 08-27-2023 Chronic Nutritional deficiencies (17 sources) Vitamin D deficiency, unspecified; Translations: [Vitamin D deficiency] Onset: 03-29-2022 08-27-2023 Chronic Osteoarthritis (4 sources) Primary generalized (osteo)arthritis; Translations: [PRIMARY GENERALIZED OSTEOARTHRITIS] Onset: 10-10-2022 Chronic Osteoporosis (20 sources) Age-related osteoporosis without current pathological fracture; Translations: [Senile osteoporosis] Onset: 12-22-2021 Chronic Other aftercare (5 sources) Other assisted (current) drug therapy; Translations: [OTH JAIL CURRENT DRUG THERAPY] Onset: 05-01-2022 Episodic Other circulatory disease (1 source) Raynaud's syndrome without gangrene; Translations: [RAYNAUDS SYNDROME WITHOUT GANGRENE] Onset: 12-18-2021 Chronic Other circulatory disease (2 sources) Other hypotension; Translations: [Other hypotension] Onset: 01-07-2024 Episodic Other connective tissue disease (2 sources) Polymyalgia rheumatica; Translations: [POLYMYALGIA RHEUMATICA] Onset: 03-08-2022 Chronic Other connective tissue disease (16 sources) Polymyalgia rheumatica; Translations: [Polymyalgia rheumatica] Onset: 08-27-2023 08-27-2023 Chronic Other lower respiratory disease (4 sources) Other nonspecific abnormal finding of lung field; Translations: [OTH NONSPECIFIC ABN FIND LNG FIELD] Onset: 10-31-2022 Episodic Other nervous system disorders (16 sources) Thoracic outlet syndrome; Translations: [Brachial plexus [...] blood chemistry] Onset: 01-07-2024 Episodic Personality disorders (16 sources) Chronic depression; Translations: [Chronic depressive disorder] Onset: 08-27-2023 08-27-2023 Chronic Pleurisy; pneumothorax; pulmonary collapse (20 sources) Spontaneous pneumothorax; Translations: [Spontaneous tension pneumothorax] Onset: 03-06-2022 Resolved: 07-17-2024 Episodic Pneumonia (except that caused by tuberculosis or sexually transmitted disease) (10 sources) Pneumonia, unspecified organism; Translations: [Pneumonia] Onset: 05-01-2022 Episodic Respiratory failure; insufficiency; arrest (adult) (18 sources) Chronic respiratory failure with hypoxia; Translations: [...] 05-01-2022 Episodic Genitourinary symptoms and ill-defined conditions (16 sources) Dysuria; Translations: [Dysuria] Onset: 08-27-2023 Resolved: 02-21-2024 02-21-2024 Episodic Nutritional deficiencies (1 source) Cachexia; Translations: [CACHEXIA] Onset: 04-04-2022 Episodic Other aftercare (1 source) [facility] (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; Translations: [JAIL CURRENT USE OF ASPIRIN] Onset: 05-01-2022 Episodic Other aftercare (1 source) long term care phlebotomist (current) use of antithrombotics/ant iplatelets; Translations: [DYNAMITE RECLAIMER ANTITHROMBOT/ANTIPL ATLETS] Onset: 03-16-2022 Episodic Other aftercare (17 sources) Post-discharge follow-up; Translations: [Encounter for follow-up examination after completed treatment for conditions other than malignant neoplasm] Onset: 06-14-2023 Resolved: 06-26-2024 06-14-2023 Episodic Other circulatory disease (4 sources) Hypotension, unspecified; Translations: [HYPOTENSION UNSPECIFIED] Onset: 12-14-2021 Episodic Other connective tissue disease (1 source) Fibromyalgia; Translations: [FIBROMYALGIA] Onset: 04-04-2022 Episodic Other connective tissue disease (16 sources) Fibromyalgia; Translations: [Fibromyalgia] Onset: 08-27-2023 08-27-2023 Episodic Other injuries and conditions due to external causes (1 source) History of falling; Translations: [HISTORY OF FALLING] Onset: 03-16-2022 Episodic Other lower respiratory disease (3 sources) Shortness of breath; Translations: [SHORTNESS OF BREATH] Onset: 04-25-2022 Episodic Other nervous system disorders (16 sources) Paresthesia; Translations: [Paresthesia of skin] Onset: 08-27-2023 08-27-2023 Episodic Other nutritional; endocrine; and metabolic disorders (1 source) Body mass index (BMI) 19.9 or less, adult; Translations: [BODY MASS INDEX 19.9 OR LESS ADULT] Onset: 04-04-2022 Episodic Residual codes; unclassified (16 sources) Bilateral lower limb edema; Translations: [Localized edema] Onset: 08-27-2023 08-27-2023 Episodic Respiratory failure; insufficiency; arrest (adult) (2 sources) Acute respiratory failure with hypoxia; Translations: [ACUTE RESPIRATORY FAILURE WITH HYPOXIA] Onset: 03-08-2022 Episodic Screening and history of mental health and substance abuse codes (1 source) Personal history of nicotine dependence; Translations: [PERSONAL HISTORY OF NICOTINE DEPEND] Onset: 05-01-2022 Episodic Urinary tract infections (16 sources) Pyelonephritis; Translations: [Tubulo-interstitia l nephritis, not specified as acute or chronic] Onset: 02-21-2024 Resolved: 07-17-2024 02-21-2024 Episodic Results Test Name Value Interpretation Reference Range Facility Urine Cultureon 07-09-2024 Bacteria identified Cx Nom (U) No Growth 2 Days PERFORMED BY: [place] [address] PATHOLOGIST INTERIOR DESIGN PROFESSIONAL LEA QUINTANILLA M.D. Normal [facility] Comment on above: Performed By: #### C UU #### [place] [id number] [facility] Aerobic Cultureon 07-08-2024 Aerobic Culture ORGANISM: Asperigillus fumigatus (O:ASPFUM) Comments . Quantity of Growth Rare Growth Send Test to Ref. Lab Sent to [facility] for Mold Identification Identification performed at: [address] [id number] Moth Exterminator: Deejay Cortez PhD, Phone: [phone] Gram Stain Result 3+ White Blood Cells 1+ Yeast Like Elements 1+ Epithelial Cells 1+ Gram Positive Bacilli Rare Gram Positive Cocci PERFORMED BY: [place] [address] PATHOLOGIST INTERIOR DESIGN PROFESSIONAL LEA QUINTANILLA M.D. Normal [facility] Comment on above: Performed By: #### G S, AERC #### [place] [id number] [place] Gram Stainon 07-08-2024 Microscopic observation Gram stain Nom (Unsp spec) Gram Stain Result 3+ White Blood Cells 1+ Yeast Like Elements 1+ Epithelial Cells 1+ Gram Positive Bacilli Rare Gram Positive Cocci PERFORMED BY: [place] [address] PATHOLOGIST INTERIOR DESIGN PROFESSIONAL LEA QUINTANILLA M.D. Normal [facility] Comment on above: Performed By: #### G S, AERC #### [place] [id number] [place] Gram stain microscopyOrdered By: Gt Wyatt on 07-08-2024 Microscopic observation Gram stain Nom (Unsp spec) Gram stain microscopy [facility] URINE CULTURE, ROUTINEon Bacteria identified Cx Nom (U) Urine Culture, Routine [facility] Bacteria identified Cx Nom (U) No growth [facility] Bacteria identified Cx Nom (U) Performed at: CB - [facility] Bacteria identified Cx Nom (U) [address] [place], [place] [id number] [facility] Bacteria identified Cx Nom (U) Moth Exterminator: Deejay Cortez PhD, Phone: [phone] [facility] Ambulatory Visit Summaryon 1 07-12-2023 Ambulatory [...] Ihsan BROWN MD Where: [facility] [address] [address]- You Need to Schedule the Following Appointments Follow Up with Ihsan BROWN MD, URL When: Where: [facility] [address], [place] [address]- Medications What How Much When Instructions New cephalexin (Keflex 500 mg Cap) 1 Capsules By Mouth Every 12 hours Duration: 10 Days Pickup at [facility] #[id number] Changed estradiol topical (estradiol 0.1 mg/ g Vag Crm) 1 Gram Vaginal As Directed Plunge 1 gm vaginally then apply excess cream around the urethra once a week at night. Pickup at [facility] #[id number] Unchanged albuterol (Albuterol (Eqv-Proventil HFA) 90 mcg/ [...] physician if questions or concerns Pharmacy Information [facility] #[id number]: [address], [place] [id number] [phone] Allergies Latex (RASH) Zithromax (HIVES) Problems Ongoing [...] The urethra (more content not included)... Normal [facility] Urology Office/Clinic Noteon 05-12-2024 Urology Office/Clinic Note [...] x 10 days. SEs discussed. Sent to [facility]. unable to send urine for culture today due to no transport. -Restart Estradiol cream. Use 1x/week. Notify office if experiencing SEs. Sent to [facility]. 3. Asymptomatic microscopic hematuria (R31.21: Asymptomatic microscopic hematuria) Chronic. [2] Follow-up With When Contact Information KEVIN SALDIVAR, Ihsan Wild, URL [facility] [address], [place] [address]- Additional Instructions: 6 mos for UD Patient [...] (more content not included)... Normal [facility] Comment on above: Result Comment: Elec tronically Signed By: Ihsan BROWN MD\.br\Date and Time Signed: 05/12/24 17:00 EST\.br\Electronically Co-Signed By: Katarina Bose\.br\Date and Time Co-Signed: 05/12/24 16:58 EST MLR HEMOGLOBIN A1Con 024 Glucose [Mass/Vol] 192 mg/dL [facility] HbA1c (Bld) [Mass fraction] 8.3 % High 4.5 - 6.2 % [facility] Comment on above: ADA RECOMMENDED LIMI T 4.0 - 6.0 ADA THERAPEUTIC TARGET < 7.0 ACTION SUGGESTED > 7.0 Interpretation and review of laboratory results Abnormal [facility] 36on 02-12-2024 36 Tried to contact patient again. She has no VM. Normal [facility] 36on 01-29-2024 36 Regarding lab result s from 01/07/2024: MD Kika Becerra MA Blood work is ok, follow up as planned in 6 months. Tried to contact patient but no VM. Will try again tomorrow. Normal [facility] Office Visiton 01-07-2024 Follow-up visit [id number] Covert,Lise Easton 1955 F Date Provider Department Center 01/07/2024 Andrew-JER NEFF CARD [place] [facility] Family History Problem Relation Age of Onset Stroke Father Stroke Father's Sister Coronary artery disease Paternal Grandmother Family Status - Relation Status Age at Father Father's Sister Paternal Grandmother Level of Service:[id number] LA OFFICE/OUTPATIENT ESTABLISHED MOD MDM 30 MIN Normal [facility] Consent for Procedure/Surger yon 11-12-2023 Consent for Procedure/Surgery [id number] .[id number] [facility] Patient Educationon 11-09-19 Patient Education Urology Urethral [...] including vitamins, herbs, eye drops, creams, and zuna-iuc-kalkyuc medicines. ? Any problems you or family [...] tells you to take them. ? Taking lyth-xlg-mzgjrtm medicines, vitamins, herbs, and supplements. General instructions [...] these instructions at home: Medicines ? Take jrng-fum-hyieeuw and prescription medicines only as told by [...] to prevent or treat constipation: ? Take [id number] or prescription medicines. ? Eat foods that [...] (more content not included)... Normal [facility] Urology Office/Clinic Noteon 11-09-2023 Urology [...] Tight The Urethra was dilated to: 20-32 [place]e with sounds. Specimens Removed: None Postoperative Information [...] Information KEVIN SALDIVAR, Ihsan Wild, URL [address] [place] [address]- Additional Instructions: 6 mos w/ IO UD Patient Education Urethral Dilation Amanda Sarmiento, personally scribed for Dr. Brown on 11/09/2023 12:14:21. . Documentation recorded by the Amanda ospina, accurately reflects the services(s) I performed and [...] (more content not included)... Normal [facility] Comment on above: Result Comment: Elec tronically Signed By: Ihsan BROWN MD\.br\Date and Time Signed: 11/09/23 12:24 EDT\.br\Electronically Co-Signed By: Amanda Camara.br\Date and Time Co-Signed: 11/09/23 12:14 EDT 36on 09-03-2023 36 Home health informed and script sent Normal [facility] Orders Onlyon 02-22-2024 Orders Only [id number] Covert,Lise Easton 1955 F Date Provider Department Center 08/30/2023 Emile5-[facility] Family History Problem Relation Age of Onset Stroke Father Stroke Father's Sister Coronary artery disease Paternal Grandmother Family Status - Relation Status Age at Father Father's Sister Paternal Grandmother Normal [facility] Office Visiton 06-27-2023 Follow-up visit [id number] Covert,Lise Easton 1955 F Date Provider Department Center 06/27/2023 Andrew-JER NEFF [facility] Family History Problem Relation Age of Onset Stroke Father Stroke Father's Sister Coronary artery disease Paternal Grandmother Family Status - Relation Status Age at Father Father's Sister Paternal Grandmother Level of Service:47751 LA OFFICE/OUTPATIENT ESTABLISHED LOW MDM 20 MIN Normal [facility] 30on 06-06-2023 30 The patient is Moderately [...] symptoms for stability, deterioration, or improvement Normal [facility] BASIC METABOLIC PANELon 11-2 Anion gap [Moles/Vol] 9 mmol/L Normal 7-20 [facility] Comment on above: Performed By: #### L [id number] #### [facility] ([facility]) [address] [place] [address] Calcium [Mass/Vol] 8.3 mg/dL Low 8.6-10.3 [facility] Comment on above: Performed By: #### L [id number] #### [facility] ([facility]) [address] [place] [address] Chloride [Moles/Vol] 99 mmol/L Normal 98-107 [facility] Comment on above: Performed By: #### L [id number] #### [facility] ([facility]) [address] [place] [address] CO2 [Moles/Vol] 26 mmol/L Normal 21-31 [facility] Comment on above: Performed By: #### L [id number] #### [facility] ([facility]) [address] [place] [address] Creatinine [Mass/Vol] 0.72 mg/dL Normal 0.60-1.20 [facility] Comment on above: Performed By: #### L [id number] #### [facility] ([facility]) [address] [place] [address] GLOMERULAR FILTRATION RATE ML/MIN/1.73 SQ M.PREDICTED 92.2 mL/min/1.73m*2 Normal >60.0 [facility] Comment on above: Result Comment: The [facility]???s estimated glomerular filtration rate (eGFR) will [...] #### [facility] ([facility]) [address] [place] [address] Glucose [Mass/Vol] 107 mg/dL High 70-100 [facility] Comment on above: Performed By: #### L [id number] #### [facility] ([facility]) [address] [place] [address] Potassium [Moles/Vol] 3.9 mmol/L Normal 3.5-5.1 [facility] Comment on above: Performed By: #### L [id number] #### [facility] ([facility] [address] [place] [address] Sodium [Moles/Vol] 130 mmol/L Low 136-145 [facility] Comment on above: Performed By: #### L [id number] #### [facility] ([facility]) [address] [place] [address] Urea nitrogen [Mass/Vol] 12 mg/dL Normal 7-25 [facility] Comment on above: Performed By: #### L [id number] #### [facility] ([facility]) [address] [place] [address] UREA NITROGEN/CREATININE (MASS RATIO) IN SER/PLAS 16.7 Normal [facility] Comment on above: Performed By: #### L [id number] #### [facility] ([facility]) [address] [place] [address] CBCon 06-06-2023 Erythrocyte distribution width (RBC) [Ratio] 13.4 % Normal 11.5-15.0 [facility] Comment on above: Performed By: #### L [id number] #### [facility] ([facility]) [address] [place] [address] ERYTHROCYTE MEAN CORPUSCULAR HEMOGLOBIN CONCENTRATION (G/DL) BY AUTOMATED 33.4 g/dL Normal 32.0-35.0 [facility] Comment on above: Performed By: #### L [id number] #### [facility] ([facility]) [address] [place] [address] Hematocrit (Bld) [Volume fraction] 28.7 % Low 36.0-48.0 [facility] Comment on above: Performed By: #### L [id number] #### [facility] ([facility]) [address] [place] [address] Hemoglobin (Bld) [Mass/Vol] 9.6 g/dL Low 12.0-15.0 [facility] Comment on above: Performed By: #### L [id number] #### [facility] ([facility]) [address] [place] [address] MCH (RBC) [Entitic mass] 28.2 pg Normal 27.0-33.0 [facility] Comment on above: Performed By: #### L [id number] #### [facility] ([facility]) [address] [place] [address] MCV (RBC) [Entitic vol] 84.4 fL Normal 82.0-98.0 [facility] Comment on above: Performed By: #### L [id number] #### [facility] ([facility]) [address] [place] [address] PLATELETS (10*3/UL) IN BLOOD AUTOMATED COUNT 522 10*3/uL High 150-400 [facility] Comment on above: Performed By: #### L [id number] #### [facility] ([facility]) [address] [place] [address] RBC (Bld) [#/Vol] 3.40 10*6/uL Low 3.80-5.00 [facility] Comment on above: Performed By: #### L [id number] #### [facility] ([facility]) [address] [place] [address] WBC (Bld) [#/Vol] 10.31 10*3/uL Normal 4.00-10.60 [facility] Comment on above: Performed By: #### L [id number] #### [facility] ([facility]) [address] [place] [address] Letter (Out)on 06-06-2023 Letter (Out) [id number] Covert,Lise Easton 1955 F Date Provider Department Sharon 06/06/2023 [id number], GENERIC PRO*INIT None Family History Problem Relation Age of Onset Stroke Father Stroke Father's Sister Coronary artery disease Paternal Grandmother Family Status - Relation Status Age at Father Father's Sister Paternal Grandmother Normal [facility] MAGNESIUMon 06-06-2023 Magnesium [Mass/Vol] 1.9 mg/dL Normal 1.9-2.7 [facility] Comment on above: Performed By: #### L [id number] #### [facility] ([facility]) [address] [place] [address] 30on 06-05-2023 30 The patient is Moderately Stable - Low risk of patient condition declining or worsening The patient's goals for the shift include comfort The clinical goals for the shift include stable vitals Normal [facility] 30 Daily Case Managemen t Update Multidisciplinary rounds have been completed. Barriers to Discharge: Transfer from [place] for chest pain and NSTEMI. TTE ordered. Pending cardio rec. Trop was .06 down to .04. +UTI and Pneumonia. Continue IV Rocephin. Urine and blood cultures pending. Patient is from home with [facility] Diet: Dietary Orders [...] your name here: DANIEL GUERIN 06/05/23 1508 [facility] 30 The patient is Moderately Unstable - Medium risk of patient condition declining or worsening The patient's goals for the shift include comfort The clinical goals for the shift include vss Over the shift, the patient did not make progress toward the following goals. Barriers to progression include . Recommendations to address these barriers include . [facility] 30 The patient is Moderately Stable [...] injury: Assess patient frequently for physical needs [place] fall precautions as indicated by assessment Identify [...] and prevent overall improvement and discharge Normal [facility] ANTI-XA (HEPARIN LEVEL)on HEPARIN UNFRACTIONATED (U/ML) IN PPP BY CHROMOGENIC METHOD <0.10 Invalid Interpretation Code 0.3-0.7 [facility] Comment on above: Order Comment: Check anti-Xa level every 6 hours while on heparin infusion, or per protocol. Result Comment: [place] roxaban and Apixaban will interfere with the anti Xa assay used to monitor UFH and LMWH. Performed By: #### L [id number] #### [facility] ([facility]) [address] [place] [address] HEPARIN UNFRACTIONATED (U/ML) IN PPP BY CHROMOGENIC METHOD <0.10 Invalid Interpretation Code 0.3-0.7 [facility] Comment on above: Order Comment: Check anti-Xa level every 6 hours while on heparin infusion, or per protocol. Result Comment: [place] roxaban and Apixaban will interfere with the anti Xa assay used to monitor UFH and LMWH. Performed By: #### L [id number] #### [facility] ([facility]) [address] [place] [address] APTTon 06-05-2023 ACTIVATED PARTIAL THROMBOPLASTIN TIME IN PPP BY COAGULATION ASSAY 38.8 Seconds High 25.0-35.0 [facility] Comment on above: Result Comment: Clin ical significance of the APTT is questionable in the presence of heparin. Performed By: #### L [id number] #### [facility] ([facility]) [address] [place] [address] B-TYPE NATRIURETIC PEPTIDEon 06-05-2023 Natriuretic peptide B (Bld) [Mass/Vol] 136 pg/mL High 0-100 [facility] Comment on above: Performed By: #### L [id number] #### [facility] ([facility]) [address] [place] [address] BLOOD CULTUREon 06-05-2023 Bacteria identified Cx Nom (Bld) No growth at 5 days Normal [facility] Comment on above: Performed By: #### L [id number] ####[facility] ([facility])[address] [facility] [address] Order Comment: From a different site than #1. CBC WITH AUTO DIFFERENTIALon 06-05-2023 Basophils (Bld) [#/Vol] 0.05 10*3/uL Normal 0.00-0.20 [facility] Comment on above: Performed By: #### L [id number] #### [facility] ([facility]) [address] [place] [address] Basophils/100 WBC (Bld) 0.3 % Normal 0.0-1.0 [facility] Comment on above: Performed By: #### L [id number] #### [facility] ([facility]) [address] [place] [address] Eosinophils (Bld) [#/Vol] 0.02 10*3/uL Normal 0.00-0.50 [facility] Comment on above: Performed By: #### L [id number] #### [facility] ([facility]) [address] [place] [address] Eosinophils/100 WBC (Bld) 0.1 % Normal 0.0-6.0 [facility] Comment on above: Performed By: #### L [id number] #### [facility] ([facility]) [address] [place] [address] Erythrocyte distribution width (RBC) [Ratio] 13.3 % Normal 11.5-15.0 [facility] Comment on above: Performed By: #### L [id number] #### [facility] ([facility]) [address] [place] [address] ERYTHROCYTE MEAN CORPUSCULAR HEMOGLOBIN CONCENTRATION (G/DL) BY AUTOMATED 32.4 g/dL Normal 32.0-35.0 [facility] Comment on above: Performed By: #### L [id number] #### [facility] ([facility]) [address] [place] [address] Hematocrit (Bld) [Volume fraction] 35.8 % Low 36.0-48.0 [facility] Comment on above: Performed By: #### L [id number] #### [facility] ([facility]) [address] [place] [address] Hemoglobin (Bld) [Mass/Vol] 11.6 g/dL Low 12.0-15.0 [facility] Comment on above: Performed By: #### L [id number] #### [facility] ([facility]) [address] [place] [address] Immature granulocytes (Bld) [#/Vol] 0.17 10*3/uL Normal 0.00-0.20 [facility] Comment on above: Performed By: #### L [id number] #### [facility] ([facility]) [address] [place] [address] Immature granulocytes/100 WBC (Bld) 1.0 % Normal 0.0-1.0 [facility] Comment on above: Performed By: #### L [id number] #### [facility] ([facility]) [address] [place] [address] Lymphocytes (Bld) [#/Vol] 0.80 10*3/uL Low 1.20-4.00 [facility] Comment on above: Performed By: #### L [id number] #### [facility] ([facility]) [address] [place] [address] Lymphocytes/100 WBC (Bld) 4.6 % Low 20.0-45.0 [facility] Comment on above: Performed By: #### L [id number] #### [facility] ([facility]) [address] [place] [address] MCH (RBC) [Entitic mass] 28.3 pg Normal 27.0-33.0 [facility] Comment on above: Performed By: #### L [id number] #### [facility] ([facility]) [address] [place] [address] MCV (RBC) [Entitic vol] 87.3 fL Normal 82.0-98.0 [facility] Comment on above: Performed By: #### L [id number] #### [facility] ([facility]) [address] [place] [address] Monocytes (Bld) [#/Vol] 0.78 10*3/uL Normal 0.10-1.00 [facility] Comment on above: Performed By: #### L [id number] #### [facility] ([facility]) [address] [place] [address] Monocytes/100 WBC (Bld) 4.5 % Low 5.0-12.0 [facility] Comment on above: Performed By: #### L [id number] #### [facility] ([facility]) [address] [place] [address] Neutrophils (Bld) [#/Vol] 15.46 10*3/uL High 1.60-7.60 [facility] Comment on above: Performed By: #### L [id number] #### [facility] ([facility]) [address] [place] [address] Neutrophils/100 WBC (Bld) 89.5 % High 40.0-72.0 [facility] Comment on above: Performed By: #### L [id number] #### [facility] ([facility]) [address] [place] [address] NRBC (PER 100 WBCS) BY AUTOMATED COUNT 0.0 % Normal 0 [facility] Comment on above: Performed By: #### L [id number] #### [facility] ([facility]) [address] [place] [address] PLATELETS (10*3/UL) IN BLOOD AUTOMATED COUNT 517 10*3/uL High 150-400 [facility] Comment on above: Performed By: #### L [id number] #### [facility] ([facility]) [address] [place] [address] RBC (Bld) [#/Vol] 4.10 10*6/uL Normal 3.80-5.00 [facility] Comment on above: Performed By: #### L [id number] #### [facility] ([facility]) [address] [place] [address] WBC (Bld) [#/Vol] 17.28 10*3/uL High 4.00-10.60 [facility] Comment on above: Performed By: #### L [id number] #### [facility] ([facility]) [address] [place] [address] COMPREHENSIVE METABOLIC PANE [place] 06-05-2023 ALANINE AMINOTRANSFERASE (SGPT) (U/L) IN SER/PLAS <3 Low 7-52 [facility] Comment on above: Performed By: #### L [id number] #### [facility] ([facility]) [address] [place] [address] Albumin [Mass/Vol] 3.1 g/dL Low 3.5-5.7 [facility] Comment on above: Performed By: #### L [id number] #### [facility] ([facility]) [address] [place] [address] ALP [Catalytic activity/Vol] 83 U/L Normal 34-104 [facility] Comment on above: Performed By: #### L [id number] #### [facility] ([facility]) [address] [place] [address] Anion gap [Moles/Vol] 13 mmol/L Normal 7-20 [facility] Comment on above: Performed By: #### L [id number] #### [facility] ([facility]) [address] [place] [address] AST [Catalytic activity/Vol] 14 U/L Normal 13-39 [facility] Comment on above: Performed By: #### L [id number] #### [facility] ([facility]) [address] [place] [address] Bilirubin [Mass/Vol] 0.3 mg/dL Normal 0.3-1.0 [facility] Comment on above: Performed By: #### L [id number] #### [facility] ([facility]) [address] [place] [address] Calcium [Mass/Vol] 8.9 mg/dL Normal 8.6-10.3 [facility] Comment on above: Performed By: #### L [id number] #### [facility] ([facility]) [address] [place] [address] Chloride [Moles/Vol] 98 mmol/L Normal 98-107 [facility] Comment on above: Performed By: #### L [id number] #### [facility]) [address] [place] [address] CO2 [Moles/Vol] 25 mmol/L Normal 21-31 [facility] Comment on above: Performed By: #### L [id number] #### [facility] ([facility]) [address] [place] [address] Creatinine [Mass/Vol] 0.96 mg/dL Normal 0.60-1.20 [facility] Comment on above: Performed By: #### L [id number] #### [facility] ([facility]) [address] [place] [address] GLOMERULAR FILTRATION RATE ML/MIN/1.73 SQ M.PREDICTED 65.3 mL/min/1.73m*2 Normal >60.0 [facility] Comment on above: Result Comment: The [facility]???s estimated glomerular filtration rate (eGFR) will [...] #### [facility]) [address] [place] [address] Glucose [Mass/Vol] 93 mg/dL Normal 70-100 [facility] Comment on above: Performed By: #### L [id number] #### [facility] ([facility]) [address] [place] [address] Potassium [Moles/Vol] 3.3 mmol/L Low 3.5-5.1 [facility] Comment on above: Performed By: #### L [id number] #### [facility] ([facility]) [address] [place] [address] Protein [Mass/Vol] 5.7 g/dL Low 6.0-8.3 [facility] Comment on above: Performed By: #### L [id number] #### [facility]) [address] [place] [address] Sodium [Moles/Vol] 133 mmol/L Low 136-145 [facility] Comment on above: Performed By: #### L [id number] #### [facility] ([facility]) [address] [place] [address] Urea nitrogen [Mass/Vol] 12 mg/dL Normal 7-25 [facility] Comment on above: Performed By: #### L [id number] #### [facility] ([facility]) [address] [place] [address] UREA NITROGEN/CREATININE (MASS RATIO) IN SER/PLAS 12.5 Normal [facility] Comment on above: Performed By: #### L [id number] #### [facility] ([facility]) [address] [place] [address] CONSULTon 06-05-2023 CONSULT - Attestation signed by [...] Nausea / Vomiting and Urinary symptoms to [facility], there she was found to have [...] bilaterally. NEURO: (more content not included)... Normal [facility] ETHANOLon 06-05-2023 ETHANOL (MG/DL) IN SER/PLAS <10 Normal [facility] Comment on above: Performed By: #### L [id number] #### [facility] ([facility]) [address] [place] [address] ETHANOL CALCULATED (%) Normal [facility] Comment on above: Performed By: #### L [id number] #### [facility] ([facility]) [address] [place] [address] HEMOGLOBIN A1Con 06-05-2023 Glucose [Mass/Vol] 160 mg/dL Normal [facility] Comment on above: Performed By: #### L [id number] ####[facility] ([facility])[address] [place] [address] HbA1c (Bld) [Mass fraction] 7.2 % High 4.0-6.0 [facility] Comment on above: Performed By: #### L [id number] ####[facility] ([facility])[address] [place] [address] LACTIC ACID WITH 4 HOUR REFL EXon 06-05-2023 LACTATE (MMOL/L) IN SER/PLAS 1.1 mmol/L Normal 0.5-2.2 [facility] Comment on above: Performed By: #### L [id number] #### [facility] ([facility]) [address] [place] [address] LEGIONELLA ANTIGEN, URINEon 06-05-2023 LEGIONELLA AG, UR Negative Normal [facility] Comment on above: Result Comment: L. p neumophila serogroup 1 antigen not detected. A negative result does not exclude infection with Leginella pnemophila serogroup 1 nor does it rule out other microbial-caused respiratory infections of disease caused by other serogroups of Legionella pneumophila. Test Performed by [employer] [facility] [address] [place] [address] - Released 06/05/2023 12:36 Performed By: #### L [id number] #### [facility] [address] [place] [address] LIPID PANELon 06-05-2023 CHOL/HDL 1.6 mg/dL Normal [facility] Comment on above: Performed By: #### L [id number] #### [facility] ([facility]) [address] [place] [address] Cholesterol [Mass/Vol] 74 mg/dL Low 120-200 [facility] Comment on above: Performed By: #### L [id number] #### [facility] ([facility]) [address] [place] [address] Magnesium [Mass/Vol] 65 mg/dL Normal 40-149 [facility] Comment on above: Result Comment: TRIG LYCERIDE REFERENCE RANGE: 20 YEARS AND OLDER CARDIOVASCULAR RISK LESS THAN 150 mg/dL LOW RISK 150 TO 199 mg/dL BORDERLINE RISK 200 mg/dL AND GREATER HIGH RISK Performed By: #### L [id number] #### [facility] ([facility]) [address] [place] [address] Magnesium [Mass/Vol] 14 mg/dL Normal 0-160 [facility] Comment on above: Performed By: #### L [id number] #### [facility]) [address] [place] [address] Magnesium [Mass/Vol] 47 mg/dL Normal 23-92 [facility] Comment on above: Performed By: #### L [id number] #### [facility] ([facility]) [address] [facility] [place] [address] NON HDL CHOL. (LDL+VLDL) 27 Normal [facility] Comment on above: Performed By: #### L [id number] #### [facility] ([facility]) [address] [place] [address] TOTAL VLDL-C 13 mg/dL Normal 0-40 [facility] Comment on above: Performed By: #### L [id number] #### [facility] ([facility]) [address] [place] [address] MAGNESIUMon 06-05-2023 Magnesium [Mass/Vol] 1.1 mg/dL Low 1.9-2.7 [facility] Comment on above: Performed By: #### L [id number] #### [facility]) [address] [facility] [place] [address] PHOSPHORUSon 06-05-2023 Magnesium [Mass/Vol] 2.8 mg/dL Normal 2.5-5.0 [facility] Comment on above: Performed By: #### L [id number] #### [facility]) [address] [facility] [address] PROTIME-INRon 06-05-2023 INR IN PPP BY COAGULATION ASSAY 1.25 High 0.90-1.10 [facility] Comment on above: Result Comment: ACCC [...] #### [facility] ([facility]) [address] [place] [address] PROTHROMBIN TIME (PT) IN PPP BY COAGULATION ASSAY 15.7 Seconds High 12.3-14.8 [facility] Comment on above: Performed By: #### L [id number] #### [facility] ([facility]) [address] [place] [address] TOXICOLOGY PANEL URINEon AMPHETAMINE+METHAMPHE TAMINE SCREEN (PRESENCE) IN URINE Negative Normal Negative [facility] Comment on above: Performed By: #### L [id number] ####[facility] ([facility])[address] [place] [address] BARBITURATES PRESENCE IN URINE BY SCREEN METHOD Negative Normal Negative [facility] Comment on above: Performed By: #### L [id number] ####[facility] ([facility] [place] [address] Benzodiazepines Ql (U) Negative Normal Negative [facility] Comment on above: Performed By: #### L [id number] ####[facility] ([facility] [place] [address] CANNABINOID (PRESENCE) IN URINE BY SCREEN METHOD Negative Normal Negative [facility] Comment on above: Performed By: #### L [id number] ####[facility] ([facility] [facility] [address] Cocaine Ql (U) Negative Normal Negative [facility] Comment on above: Performed By: #### L [id number] ####[facility] ([facility] [place] [address] METHADONE (PRESENCE) IN URINE BY SCREEN METHOD Negative Normal Negative [facility] Comment on above: Performed By: #### L [id number] ####[facility] ([facility] [place] [address] OPIATES (PRESENCE) IN URINE BY SCREEN METHOD Positive Abnormal Negative [facility] Comment on above: Performed By: #### L [id number] ####[facility] ([facility] [place] [address] PHENCYCLIDINE PRESENCE IN URINE BY SCREEN METHOD Negative Normal Negative [facility] Comment on above: Performed By: #### L [id number] ####[facility] ([facility] [place] [address] Propoxyphene Screen Ql (U) Negative Normal Negative [facility] Comment on above: Performed By: #### L [id number] ####[facility] ([facility] [place] [address] TRICYCLIC ANTIDEPRESSANTS (PRESENCE) IN URINE Negative Normal Negative [facility] Comment on above: Performed By: #### L [id number] ####[facility] ([facility] [place] [address] TROPONIN Ion 06-05-2023 Troponin I.cardiac [Mass/Vol] 0.04 ng/mL Normal 0.00-0.04 [facility] Comment on above: Performed By: #### L [id number] #### [facility] ([facility]) [address] [place] [address] Troponin I.cardiac [Mass/Vol] 0.06 ng/mL High 0.00-0.04 [facility] Comment on above: Performed By: #### L [id number] ####[facility] ([facility] [place] [address] TSH3 REFLEX TO FT4on 023 THYROTROPIN (MIU/L) IN SER/PLAS BY DETECTION LIMIT <= 0.05 MIU/L 1.46 mIU/L Normal 0.34-5.60 [facility] Comment on above: Performed By: #### L [id number] ####[facility] ([facility] [place] [address] URINALYSIS MICROSCOPIC WITH REFLEX CULTUREon 06-05-2023 CASTS IN URINE Normal [facility] Comment on above: Performed By: #### L [id number] ####[facility] ([facility] [place] [address] CRYSTALS IN URINE Normal [facility] Comment on above: Performed By: #### L [id number] ####[facility] [place] [address] OTHER MICROSCOPIC ELEMENTS Normal [facility] Comment on above: Performed By: #### L [id number] ####[facility] [place] [address] RBC (#/HPF) IN URINE SEDIMENT 6-10 Abnormal None Seen [facility] Comment on above: Performed By: #### L [id number] ####[facility] [place] [address] SQUAMOUS EPITHELIAL CELLS (#/HPF) IN URINE SEDIMENT Many Abnormal None Seen, Occasional [facility] Comment on above: Performed By: #### L [id number] ####[facility] ([facility])[address] [place] [address] WBC (LEUKOCYTE) (#/HPF) IN URINE SEDIMENT >100 Abnormal None Seen [facility] Comment on above: Performed By: #### L [id number] ####[facility] ([facility])[address] [place] [address] URINALYSIS WITH REFLEX CULTU REon 06-05-2023 BILIRUBIN, TOTAL PRESENCE IN URINE Negative Normal Negative [facility] Comment on above: Performed By: #### L [id number] ####[facility] ([facility])[address] [place] [address] Clarity (U) Clear Normal Clear [facility] Comment on above: Performed By: #### L [id number] ####[facility] ([facility] [place] [address] Color (U) Yellow Normal Yellow [facility] Comment on above: Performed By: #### L [id number] ####[facility] ([facility])[address] [place] [address] Glucose (U) [Mass/Vol] Negative Normal Negative [facility] Comment on above: Performed By: #### L [id number] ####[facility] ([facility])[address] [place] [address] HEMOGLOBIN PRESENCE IN URINE Moderate Abnormal Negative [facility] Comment on above: Performed By: #### L [id number] ####[facility] ([facility])[address] [place] [address] Ketones Ql (U) Trace Abnormal Negative [facility] Comment on above: Performed By: #### L [id number] ####[facility] ([facility])[address] [place] [address] LEUKOCYTE ESTERASE PRESENCE IN URINE BY TEST STRIP Large Abnormal Negative [facility] Comment on above: Performed By: #### L [id number] ####[facility] ([facility] [place] [address] NITRITE PRESENCE IN URINE Positive Abnormal Negative [facility] Comment on above: Performed By: #### L [id number] ####[facility] ([facility] [place] [address] pH (U) 6.0 [pH] Normal 5.0-8.0 [facility] Comment on above: Performed By: #### L [id number] ####[facility] ([facility])[address] [place] [address] Protein (U) [Mass/Vol] 30 mg/dL Abnormal Negative [facility] Comment on above: Performed By: #### L [id number] ####[facility] ([facility] [place] [address] Specific gravity (U) [Rel density] 1.012 Low 1.015-1.020 [facility] Comment on above: Performed By: #### L [id number] ####[facility] ([facility] [place] [address] 30on 06-04-2023 30 The patient is Moderately Stable - Low risk of patient condition declining or worsening The patient's goals for the shift include comfort The clinical goals for the shift include VSS Normal [facility] CT CHEST WO CONon 10-31-2022 CT [...] MIGUE REYNOSO Date: 2022-10-31 17:34 Normal [facility] HEMOGLOBINon 10-31-2022 Hemoglobin (Bld) [Mass/Vol] 11.8 g/dL Critically low 12.0-16.0 [facility] Comment on above: Performed By: #### C [id number] #### [facility] [address] [place] [address] Dr. Kayley Hatfield BUNon 10-10-2022 Urea nitrogen [Mass/Vol] 13.0 mg/dL Normal 7.0-18.0 [facility] Comment on above: Performed By: #### L DH #### [facility] [address] [place] [address] Dr. Kayley Hatfield CALCIUMon 10-10-2022 Calcium [Mass/Vol] 9.7 mg/dL Normal 8.5-10.1 [facility] Comment on above: Performed By: #### L DH #### [facility] [address] [place] [address] Dr. Kayley Hatfield CREATININEon 10-10-2022 Creatinine [Mass/Vol] 1.19 mg/dL Critically high 0.55-1.02 [facility] Comment on above: Performed By: #### L DH #### [facility] [address] [place] [address] Dr. Kayley Hatfield EGFR-AF TRISTANIAN 55 mL/min/1.73m2 Critically low >=60 [facility] Comment on above: Performed By: #### L DH #### [facility] [address] [place] [address] Dr. Kayley Hatfield EGFR-NON AF TRISTANIAN 46 mL/min/1.73m2 Critically low >=60 [facility] Comment on above: Performed By: #### L DH #### [facility] [address] [place] [address] Dr. Kayley Hatfield CRPon 10-10-2022 CRP [Mass/Vol] mg/L Normal <=1.0 [facility] Comment on above: Performed By: #### L DH #### [facility] [address] [place] [address] Dr. Kayley Hatfield MAGNESIUMon 10-10-2022 Magnesium [Mass/Vol] 1.7 mg/dL Critically low 1.8-2.4 [facility] Comment on above: Performed By: #### L DH #### [facility] [address] [place] [address] Dr. Kayley Hatfield PHOSPHORUSon 10-10-2022 Phosphate [Mass/Vol] 4.0 mg/dL Normal 2.6-4.7 [facility] Comment on above: Performed By: #### L DH #### [facility] [address] [place] [address] Dr. Kayley Hatfield SED RATE WESTERGRENon 2022 SED RATE 25 mm/hr Normal <=30 [facility] Comment on above: Performed By: #### P RTELEC #### [facility] [address] [place] [address] Dr. Kayley Hatfield CBC AUTO DIFFon 05-01-2022 BASO # 0.1 103/ul Normal 0.0-0.1 [facility] Comment on above: Performed By: #### P RBC #### [facility] [address] [place] [address] Dr. Kayley Hatfield Basophils/100 WBC (Bld) 0.5 % Normal 0.2-2.0 [facility] Comment on above: Performed By: #### P RBC #### [facility] [address] [place] [address] Dr. Kayley Hatfield EO # 0.2 103/ul Normal 0.0-0.7 [facility] Comment on above: Performed By: #### P RBC #### [facility] [address] [place] [address] Dr. Kayley Hatfield Eosinophils/100 WBC (Bld) 1.2 % Normal 0.9-7.0 [facility] Comment on above: Performed By: #### P RBC #### [facility] [address] [place] [address] Dr. Kayley Hatfield Erythrocyte distribution width (RBC) [Ratio] 14.9 % Normal 11.0-15.0 [facility] Comment on above: Performed By: #### P RBC #### [facility] [address] [address] [address] Kayley Hatfield Hematocrit (Bld) [Volume fraction] 34.2 % Critically low 36.0-48.0 [facility] Comment on above: Performed By: #### P RBC #### [facility] [address] [address] [address] Kayley Hatfield Hemoglobin (Bld) [Mass/Vol] 10.3 g/dL Critically low 12.0-16.0 [facility] Comment on above: Performed By: #### P RBC #### [facility] [address] [address] [address] Kayley Hatfield IG # 0.19 10e3/ul Critically high 0.00-0.03 [facility] Comment on above: Performed By: #### P RBC #### [facility] [address] [place] [address] Dr. Kayley Hatfield IG % 1.3 % Critically high 0.0-0.5 [facility] Comment on above: Performed By: #### P RBC #### [facility] [address] [place] [address] Dr. Kayley Hatfield LYMPH # 1.1 103/ul Critically low 1.2-3.8 [facility] Comment on above: Performed By: #### P RBC #### [facility] [address] [place] [address] Dr. Kayley Hatfield Lymphocytes/100 WBC (Bld) 7.3 % Critically low 20.5-60.0 [facility] Comment on above: Performed By: #### P RBC #### [facility] [address] [place] [address] Dr. Kayley Hatfield MANUAL DIFF REQ NO Normal [facility] Comment on above: Performed By: #### P RBC #### [facility] [address] [place] [address] Dr. Kayley Hatfield MCH (RBC) [Entitic mass] 28.4 pg Normal 26.7-34.0 [facility] Comment on above: Performed By: #### P RBC #### [facility] [address] [address] [address] Kayley Hatfield MCHC (RBC) [Mass/Vol] 30.1 g/dL Normal 29.9-35.2 [facility] Comment on above: Performed By: #### P RBC #### [facility] [address] [address] [address] Kayley Hatfield MCV (RBC) [Entitic vol] 94.2 fL Normal 81.0-99.0 [facility] Comment on above: Performed By: #### P RBC #### [facility] [address] [address] [address] Kayley Hatfield MONO # 0.6 103/ul Normal 0.3-0.8 [facility] Comment on above: Performed By: #### P RBC #### [facility] [address] [address] [address] Kayley Hatfield Monocytes/100 WBC (Bld) 4.0 % Normal 1.7-12.0 [facility] Comment on above: Performed By: #### P RBC #### [facility] [address] [address] [address] Kayley Hatfield NEUT # 12.5 103/ul Critically high 1.4-6.5 [facility] Comment on above: Performed By: #### P RBC #### [facility] [address] [address] [address] Kayley Hatfield Neutrophils/100 WBC (Bld) 85.7 % Critically high 43.0-75.0 [facility] Comment on above: Performed By: #### P RBC #### [facility] [address] [address] [address] Kayley Hatfield Platelet mean volume (Bld) [Entitic vol] 8.5 fL Critically low 9.5-13.5 [facility] Comment on above: Performed By: #### P RBC #### [facility] [address] [address] [address] Kayley Hatfield PLT 574 103/ul Critically high 150-450 [facility] Comment on above: Performed By: #### P RBC #### [facility] [address] [address] [address] Kayley Hatfield RBC 3.63 106/ul Critically low 4.20-5.40 [facility] Comment on above: Performed By: #### P RBC #### [facility] [address] [address] [address] Kayley Hatfield WBC 14.6 103/ul Critically high 4.0-11.0 [facility] Comment on above: Performed By: #### P RBC #### [facility] [address] [place] [address] Dr. Kayley Hatfield MAGNESIUMon 05-01-2022 Magnesium [Mass/Vol] 2.1 mg/dL Normal 1.8-2.4 [facility] Comment on above: Performed By: #### O BSCRN #### [facility] [address] [place] [address] Dr. Kayley Hatfield PROF CHEM 8 (BAS METB)on Anion gap [Moles/Vol] 8.6 mmol/L Normal [facility] Comment on above: Performed By: #### O BSCRN #### [facility] [address] [address] [address] Kayley Hatfield Calcium [Mass/Vol] 9.0 mg/dL Normal 8.5-10.1 [facility] Comment on above: Performed By: #### O BSCRN #### [facility] [address] [place] [address] Dr. Kayley Hatfield Chloride [Moles/Vol] 101 mmol/L Normal 98-107 [facility] Comment on above: Performed By: #### O BSCRN #### [facility] [address] [place] [address] Dr. Kayley Hatfield CO2 [Moles/Vol] 33.0 mmol/L Critically high 21.0-32.0 [facility] Comment on above: Performed By: #### O BSCRN #### [facility] [address] [place] [address] Dr. Kayley Hatfield Creatinine [Mass/Vol] 0.94 mg/dL Normal 0.55-1.02 [facility] Comment on above: Performed By: #### O BSCRN #### [facility] [address] [address] [address] Kayley Hatfield EGFR-AF TRISTANIAN >60 Normal >=60 [facility] Comment on above: Performed By: #### O BSCRN #### [facility] [address] [address] [address] Kayley Hatfield EGFR-NON AF TRISTANIAN >60 Normal >=60 [facility] Comment on above: Performed By: #### O BSCRN #### [facility] [address] [address] [address] Kayley Hatfield Glucose [Mass/Vol] 143 mg/dL Critically high 74-106 [facility] Comment on above: Performed By: #### O BSCRN #### [facility] [address] [place] [address] Dr. Kayley Hatfield Potassium [Moles/Vol] 4.6 mmol/L Normal 3.5-5.1 [facility] Comment on above: Performed By: #### O BSCRN #### [facility] [address] [address] [address] Kayley Hatfield Sodium [Moles/Vol] 138 mmol/L Normal 136-145 [facility] Comment on above: Performed By: #### O BSCRN #### [facility] [address] [address] [address] Kayley Hatfield Urea nitrogen [Mass/Vol] 15.0 mg/dL Normal 7.0-18.0 [facility] Comment on above: Performed By: #### O BSCRN #### [facility] [address] [address] [address] Kayley Hatfield Urea nitrogen/Creatinine [Mass ratio] 16.0 mg/mg Normal [facility] Comment on above: Performed By: #### O BSCRN #### [facility] [address] [address] [address] Kayley Hatfield CBC AUTO DIFFon 04-26-2022 BASO # 0.1 103/ul Normal 0.0-0.1 [facility] Comment on above: Performed By: #### P RBC #### [facility] [address] [address] [address] Kayley Hatfield Basophils/100 WBC (Bld) 0.5 % Normal 0.2-2.0 [facility] Comment on above: Performed By: #### P RBC #### [facility] [address] [address] [address] Kayley Hatfield EO # 0.2 103/ul Normal 0.0-0.7 [facility] Comment on above: Performed By: #### P RBC #### [facility] [address] [address] [address] Kayley Hatfield Eosinophils/100 WBC (Bld) 1.8 % Normal 0.9-7.0 [facility] Comment on above: Performed By: #### P RBC #### [facility] [address] [address] [address] Kayley Hatfield Erythrocyte distribution width (RBC) [Ratio] 14.7 % Normal 11.0-15.0 [facility] Comment on above: Performed By: #### P RBC #### [facility] [address] [address] [address] Kayley Hatfield Hematocrit (Bld) [Volume fraction] 32.0 % Critically low 36.0-48.0 [facility] Comment on above: Performed By: #### P RBC #### [facility] [address] [address] [address] Kayley Hatfield Hemoglobin (Bld) [Mass/Vol] 9.9 g/dL Critically low 12.0-16.0 [facility] Comment on above: Performed By: #### P RBC #### [facility] [address] [address] [address] Kayley Hatfield IG # 0.07 10e3/ul Critically high 0.00-0.03 [facility] Comment on above: Performed By: #### P RBC #### [facility] [address] [address] [address] Kayley Hatfield IG % 0.6 % Critically high 0.0-0.5 [facility] Comment on above: Performed By: #### P RBC #### [facility] [address] [address] [address] Kayley Hatfield LYMPH # 1.2 103/ul Normal 1.2-3.8 [facility] Comment on above: Performed By: #### P RBC #### [facility] [address] [address] [address] Kayley Hatfield Lymphocytes/100 WBC (Bld) 10.9 % Critically low 20.5-60.0 [facility] Comment on above: Performed By: #### P RBC #### [facility] [address] [place] [address] Dr. Kayley Hatfield MANUAL DIFF REQ NO Normal [facility] Comment on above: Performed By: #### P RBC #### [facility] [address] [place] [address] Dr. Kayley Hatfield MCH (RBC) [Entitic mass] 28.4 pg Normal 26.7-34.0 [facility] Comment on above: Performed By: #### P RBC #### [facility] [address] [place] [address] Dr. Kayley Hatfield MCHC (RBC) [Mass/Vol] 30.9 g/dL Normal 29.9-35.2 [facility] Comment on above: Performed By: #### P RBC #### [facility] [address] [place] [address] Dr. Kayley Hatfield MCV (RBC) [Entitic vol] 92.0 fL Normal 81.0-99.0 [facility] Comment on above: Performed By: #### P RBC #### [facility] [address] [place] [address] Dr. Kayley Hatfield MONO # 1.4 103/ul Critically high 0.3-0.8 [facility] Comment on above: Performed By: #### P RBC #### [facility] [address] [place] [address] Dr. Kayley Hatfield Monocytes/100 WBC (Bld) 11.9 % Normal 1.7-12.0 [facility] Comment on above: Performed By: #### P RBC #### [facility] [address] [address] [address] Kayley Hatfield NEUT # 8.4 103/ul Critically high 1.4-6.5 [facility] Comment on above: Performed By: #### P RBC #### [facility] [address] [address] [address] Kayley Hatfield Neutrophils/100 WBC (Bld) 74.3 % Normal 43.0-75.0 [facility] Comment on above: Performed By: #### P RBC #### [facility] [address] [address] [address] Kayley Hatfield Platelet mean volume (Bld) [Entitic vol] 8.8 fL Critically low 9.5-13.5 [facility] Comment on above: Performed By: #### P RBC #### [facility] [address] [address] [address] Kayley Hatfield PLT 953 103/ul Critically high 150-450 [facility] Comment on above: Performed By: #### P RBC #### [facility] [address] [address] [address] Kayley Hatfield RBC 3.48 106/ul Critically low 4.20-5.40 [facility] Comment on above: Performed By: #### P RBC #### [facility] [address] [address] [address] Kayley Hatfield WBC 11.3 103/ul Critically high 4.0-11.0 [facility] Comment on above: Performed By: #### P RBC #### [facility] [address] [address] [address] Kayley Hatfield POINT OF CARE GLUCOSEon 04-08 Glucose [Mass/Vol] 225 mg/dL Critically high 74-106 [facility] Comment on above: Performed By: #### B [id number] #### [facility] [address] [address] [address] Kayley Hatfield PROF CHEM 8 (BAS METB)on Anion gap [Moles/Vol] 10.7 mmol/L Normal [facility] Comment on above: Performed By: #### P RBC #### [facility] [address] [address] [address] Kayley Hatfield Calcium [Mass/Vol] 9.2 mg/dL Normal 8.5-10.1 [facility] Comment on above: Performed By: #### P RBC #### [facility] [address] [address] [address] Kayley Hatfield Chloride [Moles/Vol] 103 mmol/L Normal 98-107 [facility] Comment on above: Performed By: #### P RBC #### [facility] [address] [address] [address] Kayley Hatfield CO2 [Moles/Vol] 29.2 mmol/L Normal 21.0-32.0 [facility] Comment on above: Performed By: #### P RBC #### [facility] [address] [place] [address] Dr. Kayley Hatfield Creatinine [Mass/Vol] 0.85 mg/dL Normal 0.55-1.02 [facility] Comment on above: Performed By: #### P RBC #### [facility] [address] [place] [address] Dr. Kayley Hatfield EGFR-AF TRISTANIAN >60 Normal >=60 [facility] Comment on above: Performed By: #### P RBC #### [facility] [address] [place] [address] Dr. Kayley Hatfield EGFR-NON AF TRISTANIAN >60 Normal >=60 [facility] Comment on above: Performed By: #### P RBC #### [facility] [address] [place] [address] Dr. Kayley Hatfield Glucose [Mass/Vol] 81 mg/dL Normal 74-106 [facility] Comment on above: Performed By: #### P RBC #### [facility] [address] [place] [address] Dr. Kayley Hatfield Potassium [Moles/Vol] 3.9 mmol/L Normal 3.5-5.1 [facility] Comment on above: Performed By: #### P RBC #### [facility] [address] [place], [place] [address] Dr. Kayley Hatfield Sodium [Moles/Vol] 139 mmol/L Normal 136-145 [facility] Comment on above: Performed By: #### P RBC #### [facility] [address] [place], [place] [address] Dr. Kayley Hatfield Urea nitrogen [Mass/Vol] 9.0 mg/dL Normal 7.0-18.0 [facility] Comment on above: Performed By: #### P RBC #### [facility] [id number] Kayley Hatfield Urea nitrogen/Creatinine [Mass ratio] 10.6 mg/mg Normal [facility] Comment on above: Performed By: #### P RBC #### [facility] [id number] Kayley Hatfield XR CHEST 2 Von [...] MIGUE REYNOSO Date: 2022-04-26 09:59 Normal [facility] BNPon 04-25-2022 Natriuretic peptide B (Bld) [Mass/Vol] 234.0 pg/mL Normal <=900.0 [facility] Comment on above: Performed By: #### P RTELEC #### [facility] [address] [address] [address] Kayley Hatfield CBC AUTO DIFFon 04-25-2022 BASO # 0.1 103/ul Normal 0.0-0.1 [facility] Comment on above: Performed By: #### P RBC #### [facility] [address] [address] [address] Kayley Hatfield Basophils/100 WBC (Bld) 0.4 % Normal 0.2-2.0 [facility] Comment on above: Performed By: #### P RBC #### [facility] [address] [address] [address] Kayley Hatfield EO # 0.2 103/ul Normal 0.0-0.7 [facility] Comment on above: Performed By: #### P RBC #### [facility] [address] [place] [address] Dr. Kayley Hatfield Eosinophils/100 WBC (Bld) 1.0 % Normal 0.9-7.0 [facility] Comment on above: Performed By: #### P RBC #### [facility] [address] [place] [address] Dr. Kayley Hatfield Erythrocyte distribution width (RBC) [Ratio] 14.8 % Normal 11.0-15.0 [facility] Comment on above: Performed By: #### P RBC #### [facility] [address] [place] [address] Dr. Kayley Hatfield Hematocrit (Bld) [Volume fraction] 35.4 % Critically low 36.0-48.0 [facility] Comment on above: Performed By: #### P RBC #### [facility] [address] [place] [address] Dr. Kayley Hatfield Hemoglobin (Bld) [Mass/Vol] 10.9 g/dL Critically low 12.0-16.0 [facility] Comment on above: Performed By: #### P RBC #### [facility] [address] [place] [address] Dr. Kayley Hatfield IG # 0.08 10e3/ul Critically high 0.00-0.03 [facility] Comment on above: Performed By: #### P RBC #### [facility] [address] [address] [address] Kayley Hatfield IG % 0.5 % Normal 0.0-0.5 [facility] Comment on above: Performed By: #### P RBC #### [facility] [address] [address] [address] Kayley Hatfield LYMPH # 1.2 103/ul Normal 1.2-3.8 [facility] Comment on above: Performed By: #### P RBC #### [facility] [address] [place] [address] Dr. Kayley Hatfield Lymphocytes/100 WBC (Bld) 7.4 % Critically low 20.5-60.0 [facility] Comment on above: Performed By: #### P RBC #### [facility] [address] [place] [address] Dr. Kayley Hatfield MANUAL DIFF REQ NO Normal [facility] Comment on above: Performed By: #### P RBC #### [facility] [address] [address] [address] Kayley Hatfield MCH (RBC) [Entitic mass] 27.9 pg Normal 26.7-34.0 [facility] Comment on above: Performed By: #### P RBC #### [facility] [address] [place] [address] Dr. Kayley Hatfield MCHC (RBC) [Mass/Vol] 30.8 g/dL Normal 29.9-35.2 [facility] Comment on above: Performed By: #### P RBC #### [facility] [address] [place] [address] Dr. Kayley Hatfield MCV (RBC) [Entitic vol] 90.5 fL Normal 81.0-99.0 [facility] Comment on above: Performed By: #### P RBC #### [facility] [address] [place] [address] Dr. Kayley Hatfield MONO # 1.5 103/ul Critically high 0.3-0.8 [facility] Comment on above: Performed By: #### P RBC #### [facility] [address] [place] [address] Dr. Kayley Hatfield Monocytes/100 WBC (Bld) 8.7 % Normal 1.7-12.0 [facility] Comment on above: Performed By: #### P RBC #### [facility] [address] [address] [address] Kayley Hatfield NEUT # 13.8 103/ul Critically high 1.4-6.5 [facility] Comment on above: Performed By: #### P RBC #### [facility] [address] [address] [address] Kayley Hatfield Neutrophils/100 WBC (Bld) 82.0 % Critically high 43.0-75.0 [facility] Comment on above: Performed By: #### P RBC #### [facility] [address] [place] [address] Dr. Kayley Hatfield Platelet mean volume (Bld) [Entitic vol] 8.9 fL Critically low 9.5-13.5 [facility] Comment on above: Performed By: #### P RBC #### [facility] [address] [address] [address] Kayley Hatfield PLT 1076 103/ul Critically high 150-450 [facility] Comment on above: Performed By: #### P RBC #### [facility] [address] [place] [address] Dr. Kayley Hatfield RBC 3.91 106/ul Critically low 4.20-5.40 [facility] Comment on above: Performed By: #### P RBC #### [facility] [address] [address] [address] Kayley Hatfield WBC 16.8 103/ul Critically high 4.0-11.0 [facility] Comment on above: Performed By: #### P RBC #### [facility] [address] [place] [address] HEAD WO CONon [...] by: MIGUE REYNOSO Date: 2022-04-25 14:59 Normal [facility] CTA CHEST WO W CONon 04-25-2 [...] MIGUE REYNOSO Date: 2022-04-25 15:18 Normal [facility] Covid-19 PCR ([facility])on 04-08 SARS-CoV-2 (COVID-19) RNA ELBA+probe Ql (Unsp spec) Not detected Normal NOT DETECTED [facility] Comment on above: Result Comment: When [...] for this test is supported by the [place] of Health and Human Service's declaration that [...] used). Performed By: #### C VDTB #### [facility] [address] [place] [address] Dr. Kayley DOBSON URINE PROFILEon 2 Bilirubin Ql (U) Negative Normal NEGATIVE [facility] Comment on above: Performed By: #### C VDTB #### [facility] [address] [place] [address] Dr. Kayley Hatfield Clarity (U) CLEAR Normal CLEAR [facility] Comment on above: Performed By: #### C VDTB #### [facility] [address] [place] [address] Dr. Kayley Hatfield Color (U) LT. YELLOW Normal YELLOW [facility] Comment on above: Performed By: #### C VDTBH #### [facility] [address] [place] [address] Dr. Kayley [place] A micrscopic examination will be performed if indicated. Normal [facility] Comment on above: Performed By: #### C VDTBH #### [facility] [address] [place] [address] Dr. Kayley Hatfield Glucose Ql (U) Negative Normal NEGATIVE [facility] Comment on above: Performed By: #### C VDTBH #### [facility] [address] [place] [address] Dr. Kayley Hatfield Hemoglobin Ql (U) TRACE-INTACT Abnormal NEGATIVE [facility] Comment on above: Performed By: #### C VDTBH #### [facility] [address] [place] [address] Dr. Kayley Hatfield Ketones Ql (U) Negative Normal NEGATIVE [facility] Comment on above: Performed By: #### C VDTBH #### [facility] [address] [place] [address] Dr. Kayley Hatfield LEUKOCYTES Negative Normal NEGATIVE [facility] Comment on above: Performed By: #### C VDTBH #### [facility] [address] [place] [address] Dr. Kayley Hatfield Nitrite Ql (U) Negative Normal NEGATIVE [facility] Comment on above: Performed By: #### C VDTBH #### [facility] [address] [place] [address] Dr. Kayley Hatfield pH (U) 8.0 [pH] Normal 5-9 [facility] Comment on above: Performed By: #### C VDTBH #### [facility] [address] [place] [address] Dr. Kayley Hatfield SPEC GRAVITY 1.010 Normal 1.005-<=1.025 [facility] Comment on above: Performed By: #### C VDTBH #### [facility] [address] [place] [address] Dr. Kayley Hatfield UA PROTEIN Negative Normal NEGATIVE/ TRACE [facility] Comment on above: Performed By: #### C VDTBH #### [facility] [address] [place] [address] Dr. Kayley Hatfield UR MICRO IND INDICATED Normal [facility] Comment on above: Performed By: #### C VDTBH #### [facility] [address] [place] [address] Dr. Kayley Hatfield Urobilinogen Qn (U) 0.2 {Lu'U}/dL Normal 0.2 - 1. 0 [facility] Comment on above: Performed By: #### C VDTBH #### [facility] [address] [place] [address] Dr. Kayley Hatfield LACTATE/LACTIC ACIDon 2021 Lactate [Moles/Vol] 1.1 mmol/L Normal 0.4-1.9 [facility] Comment on above: Performed By: #### P RTELEC #### [facility] [address] [place] [address] Dr. Kayley Hatfield PH VENOUS BLOODon 04-25-2022 PCO2 VENOUS 54.5 mmHg Critically high 40.0-52.0 [facility] Comment on above: Performed By: #### L DH #### [facility] [address] [place] [address] Dr. Kayley Hatfield pH VENOUS 7.385 Normal 7.330-7.430 [facility] Comment on above: Performed By: #### L DH #### [facility] [address] [place] [address] Dr. Kayley Hatfield POINT OF CARE GLUCOSEon 04-08 Glucose [Mass/Vol] 91 mg/dL Normal 74-106 [facility] Comment on above: Performed By: #### O BSCRN #### [facility] [address] [address] [address] Kayley Hatfield Glucose [Mass/Vol] 116 mg/dL Critically high 74-106 [facility] Comment on above: Performed By: #### O BSCRN #### [facility] [address] [address] [address] Kayley Hatfield PROF 14(COMP METB)on 04-25- 022 Albumin [Mass/Vol] 2.7 g/dL Critically low 3.4-5.0 [facility] Comment on above: Performed By: #### O BSCRN #### [facility] [address] [address] [address] Kayley Hatfield Albumin/Globulin [Mass ratio] 0.6 {ratio} Normal [facility] Comment on above: Performed By: #### O BSCRN #### [facility] [address] [place] [address] Dr. Kayley Hatfield ALP [Catalytic activity/Vol] 132 U/L Critically high 46-116 [facility] Comment on above: Performed By: #### O BSCRN #### [facility] [address] [address] [address] Kayley Hatfield ALT [Catalytic activity/Vol] 21 U/L Normal 14-59 [facility] Comment on above: Performed By: #### O BSCRN #### [facility] [address] [address] [address] Kayley Hatfield Anion gap [Moles/Vol] 8.1 mmol/L Normal [facility] Comment on above: Performed By: #### O BSCRN #### [facility] [address] [address] [address] Kayley Hatfield AST [Catalytic activity/Vol] 23 U/L Normal 15-37 [facility] Comment on above: Performed By: #### O BSCRN #### [facility] [address] [address] [address] Kayley Hatfield Bilirubin [Mass/Vol] 0.3 mg/dL Normal 0.2-1.0 [facility] Comment on above: Performed By: #### O BSCRN #### [facility] [address] [address] [address] Kayley Hatfield Calcium [Mass/Vol] 9.4 mg/dL Normal 8.5-10.1 [facility] Comment on above: Performed By: #### O BSCRN #### [facility] [address] [address] [address] Kayley Hatfield Chloride [Moles/Vol] 100 mmol/L Normal 98-107 [facility] Comment on above: Performed By: #### O BSCRN #### [facility] [address] [address] [address] Kayley Hatfield CO2 [Moles/Vol] 31.8 mmol/L Normal 21.0-32.0 [facility] Comment on above: Performed By: #### O BSCRN #### [facility] [address] [address] [address] Kayley Hatfield Creatinine [Mass/Vol] 0.79 mg/dL Normal 0.55-1.02 [facility] Comment on above: Performed By: #### O BSCRN #### [facility] [address] [address] [address] Kayley Hatfield EGFR-AF TRISTANIAN >60 Normal >=60 [facility] Comment on above: Performed By: #### O BSCRN #### [facility] [address] [address] [address] Kayley Hatfield EGFR-NON AF TRISTANIAN >60 Normal >=60 [facility] Comment on above: Performed By: #### O BSCRN #### [facility] [address] [address] [address] Kayley Hatfield Globulin (S) [Mass/Vol] 4.2 g/dL Normal [facility] Comment on above: Performed By: #### O BSCRN #### [facility] [address] [address] [address] Kayley Hatfield Glucose [Mass/Vol] 134 mg/dL Critically high 74-106 [facility] Comment on above: Performed By: #### O BSCRN #### [facility] [address] [place] [address] Dr. Kayley Hatfield Potassium [Moles/Vol] 3.9 mmol/L Normal 3.5-5.1 [facility] Comment on above: Performed By: #### O BSCRN #### [facility] [address] [place] [address] Dr. Kayley Hatfield Protein [Mass/Vol] 6.9 g/dL Normal 6.4-8.2 [facility] Comment on above: Performed By: #### O BSCRN #### [facility] [address] [place] [address] Dr. Kayley Hatfield Sodium [Moles/Vol] 136 mmol/L Normal 136-145 [facility] Comment on above: Performed By: #### O BSCRN #### [facility] [address] [place] [address] Dr. Kayley Hatfield Urea nitrogen [Mass/Vol] 10.0 mg/dL Normal 7.0-18.0 [facility] Comment on above: Performed By: #### O BSCRN #### [facility] [address] [place] [address] Dr. Kayley Hatfield Urea nitrogen/Creatinine [Mass ratio] 12.7 mg/mg Normal [facility] Comment on above: Performed By: #### O BSCRN #### [facility] [address] [place] [address] Dr. Kayley Hatfield PROTIMEon 04-25-2022 INR Coag (PPP) [Relative time] 1.08 {INR} Normal [facility] Comment on above: Performed By: #### P RTELEC #### [facility] [address] [place] [address] Dr. Kayley Hatfield INR GUIDELINES SEE BELOW Normal [facility] Comment on above: Result Comment: JOAQUIM RED INR: 2.0 - 3.0 CONDITIONS NOT LISTED BELOW 2.5 - 3.5 FOR PROSTHETIC HEART VALVE REPLACEMENT 2.5 - 3.5 RECURRENT THROMBOSIS Performed By: #### P RTELEC #### [facility] [address] [place] [address] Dr. Kayley Hatfield PT Coag (PPP) [Time] 11.6 s Normal 9.0-11.6 [facility] Comment on above: Performed By: #### P RTELEC #### [facility] [address] [place] [address] Dr. Kayley Hatfield PTTon 04-25-2022 aPTT Coag (Bld) [Time] 31.1 s Normal 22.3-36.2 [facility] Comment on above: Performed By: #### P RTELEC #### [facility] [address] [place] [address] Dr. Kayley Hatfield TROPONIN, HIGH SENSITIVITYon 04-25-2022 HSTROP 9.6 pg/mL Normal 4.0-51.3 [facility] Comment on above: Result Comment: CUT- OFF POINTS HAVE BEEN ESTABLISHED BASED ON THE FOURTH UNIVERSAL DEFINITIONS OF MYOCARDIAL INFARCTION. THE UPPER REFERENCE LIMIT (URL) OF TROPONIN, DEFINED THE 99TH PERCENTILE OF cTnI DISTRIBUTION IN A REFERENCE POPULATION, HAS BEEN CONFIRMED THE DECISION THRESHOLD FOR IA DIAGNOSIS. Performed By: #### P RTELEC #### [facility] [address] [place] [address] Dr. Kayley Hatfield TSHon 04-25-2022 TSH 1.431 uIU/mL Normal 0.358-3.740 [facility] Comment on above: Performed By: #### P RTELEC #### [facility] [address] [place] [address] Dr. Kayley Hatfield URINE MICROSCOPIC ONLYon BACTERIA NONE SEEN Normal NONE SEEN [facility] Comment on above: Performed By: #### C VDTBH #### [facility] [address] [place] [address] Dr. Kayley Hatfield Bacteria identified Cx Nom (U) NOT INDICATED Normal [facility] Comment on above: Performed By: #### C VDTBH #### [facility] [address] [place] [address] Dr. Kayley Hatfield CAST NONE SEEN Normal NONE SEEN [facility] Comment on above: Performed By: #### C VDTBH #### [facility] [address] [place] [address] Dr. Kayley Hatfield Crystals LM Nom (Urine sed) NONE SEEN Normal NONE SEEN [facility] Comment on above: Performed By: #### C VDTBH #### [facility] [address] [place] [address] Dr. Kayley Hatfield Epithelial cells LM Ql (Urine sed) FEW Abnormal NONE SEEN /RARE [facility] Comment on above: Performed By: #### C VDTBH #### [facility] [address] [place] [address] Dr. Kayley Hatfield MUCOUS NONE SEEN Normal NONE SEEN [facility] Comment on above: Performed By: #### C VDTBH #### [facility] [address] [place] [address] Dr. Kayley Hatfield RBC 2-5 Abnormal 0-2 [facility] Comment on above: Performed By: #### C VDTBH #### [facility] [address] [place] [address] Dr. Kayley Hatfield WBC NONE SEEN Normal NONE SEEN [facility] Comment on above: Performed By: #### C VDTBH #### [facility] [address] [place] [address] Dr. Kayley Hatfield IMMUNOFIXATION(KENNETH),PROTEIN ELEC(PE),[facility] 03-31-2022 Albumin [Mass/Vol] 3.6 g/dL Normal 2.9-4.4 [facility] Comment on above: Performed By: #### B LDCX1 #### [facility] [address] [place] [address] Dr. Kayley Hatfield Albumin/Globulin [Mass ratio] 1.6 {ratio} Normal 0.7-1.7 [facility] Comment on above: Performed By: #### B LDCX1 #### [facility] [address] [place] [address] Dr. Kayley Hatfield Bitbj-7-Iauguukd 0.3 g/dL Normal 0.0-0.4 [facility] Comment on above: Performed By: #### B [id number] #### [facility] [address] [place] [address] Dr. Kayley Hatfield Gqxow-6-Sbskfyuj 0.8 g/dL Normal 0.4-1.0 [facility] Comment on above: Performed By: #### B LDCX1 #### [facility] [address] [place] [address] Dr. Kayley Hatfield Beta Globulin 1.0 g/dL Normal 0.7-1.3 [facility] Comment on above: Performed By: #### B LDCX1 #### [facility] [address] [place] [address] Dr. Kayley Hatfield Free [place] Lt Chains,S 16.0 mg/L Normal 3.3-19.4 [facility] Comment on above: Performed By: #### B LDCX1 #### [facility] [address] [place] [address] Dr. Kayley Hatfield Free Lambda Lt Chains,S 10.1 mg/L Normal 5.7-26.3 [facility] Comment on above: Performed By: #### B LDCX1 #### [facility] [address] [place] [address] Dr. Kayley Hatfield Gamma Globulin 0.4 g/dL Normal 0.4-1.8 [facility] Comment on above: Performed By: #### B LDCX1 #### [facility] [address] [place] [address] Dr. Kayley Hatfield Globulin (S) [Mass/Vol] 2.4 g/dL Normal 2.2-3.9 [facility] Comment on above: Performed By: #### B LDCX1 #### [facility] [address] [place] [address] Dr. Kayley Hatfield Immunofixation Result, Serum Comment Normal [facility] Comment on above: Result Comment: No m onoclonality detected. Performed By: #### B LDCX1 #### [facility] [address] [place] [address] Dr. Kayley Hatfield Immunoglobulin A, Qn, Serum 128 mg/dL Normal 87-352 [facility] Comment on above: Performed By: #### B LDCX1 #### [facility] [address] [place] [address] Dr. Kayley Hatfield Immunoglobulin G, Qn, Serum 487 mg/dL Critically low 586-1602 [facility] Comment on above: Performed By: #### B [id number] #### [facility] [address] [place] [address] Dr. Kayley Hatfield Immunoglobulin M, Qn, Serum 38 mg/dL Normal 26-217 [facility] Comment on above: Performed By: #### B [id number] #### [facility] [address] [place] [address] Dr. Kayley Hatfield [place]/Lambda Ratio, S 1.58 Normal 0.26-1.65 [facility] Comment on above: Performed By: #### B LDCX1 #### [facility] [address] [place] [address] Dr. Kayley Hatfield M-Sandip Not Observed Normal Not Observed [facility] Comment on above: Performed By: #### B [id number] #### [facility] [address] [place] [address] Dr. Kayley Hatfield PDF . Normal [facility] Comment on above: Performed By: #### B [id number] #### [facility] [address] [place] [address] Dr. Kayley Hatfield Please note: Comment Normal [facility] Comment on above: Result Comment: Prot ein electrophoresis scan will follow via computer, mail, or steward/stewardess chief cargo vessel delivery. Performed By: #### B [id number] #### [facility] [address] [place] [address] Dr. Kayley Hatfield Protein [Mass/Vol] 6.0 g/dL Normal 6.0-8.5 [facility] Comment on above: Performed By: #### B [id number] #### [facility] [address] [place] [address] Dr. Kayley Hatfield CBC AUTO DIFFon 03-30-2022 BASO # 0.1 103/ul Normal 0.0-0.1 [facility] Comment on above: Performed By: #### P RBC #### [facility] [address] [place] [address] Dr. Kayley Hatfield Basophils/100 WBC (Bld) 0.4 % Normal 0.2-2.0 [facility] Comment on above: Performed By: #### P RBC #### [facility] [address] [place] [address] Dr. Kayley Hatfield EO # 0.2 103/ul Normal 0.0-0.7 [facility] Comment on above: Performed By: #### P RBC #### [facility] [address] [place] [address] Dr. Kayley Hatfield Eosinophils/100 WBC (Bld) 1.1 % Normal 0.9-7.0 [facility] Comment on above: Performed By: #### P RBC #### [facility] [address] [place] [address] Dr. Kayley Hatfield Erythrocyte distribution width (RBC) [Ratio] 0.0 % Critically low 11.0-15.0 [facility] Comment on above: Performed By: #### P RBC #### [facility] [address] [place] [address] Dr. Kayley Hatfield Hematocrit (Bld) [Volume fraction] 24.0 % Critically low 36.0-48.0 [facility] Comment on above: Performed By: #### P RBC #### [facility] [address] [place] [address] Dr. Kayley Hatfield Hemoglobin (Bld) [Mass/Vol] 7.2 g/dL Critically low 12.0-16.0 [facility] Comment on above: Performed By: #### P RBC #### [facility] [address] [place] [address] Dr. Kayley Hatfield IG # 0.10 10e3/ul Critically high 0.00-0.03 [facility] Comment on above: Performed By: #### P RBC #### [facility] [address] [place] [address] Dr. Kayley Hatfield IG % 0.6 % Critically high 0.0-0.5 [facility] Comment on above: Performed By: #### P RBC #### [facility] [address] [place] [address] Dr. Kayley Hatfield LYMPH # 1.5 103/ul Normal 1.2-3.8 [facility] Comment on above: Performed By: #### P RBC #### [facility] [address] [place] [address] Dr. Kayley Hatfield Lymphocytes/100 WBC (Bld) 9.0 % Critically low 20.5-60.0 [facility] Comment on above: Performed By: #### P RBC #### [facility] [address] [place] [address] Dr. Kayley Hatfield MANUAL DIFF REQ NO Normal [facility] Comment on above: Performed By: #### P RBC #### [facility] [address] [place] [address] Dr. Kayley Hatfield MCH (RBC) [Entitic mass] 27.3 pg Normal 26.7-34.0 [facility] Comment on above: Performed By: #### P RBC #### [facility] [address] [place] [address] Dr. Kayley Hatfield MCHC (RBC) [Mass/Vol] 30.0 g/dL Normal 29.9-35.2 [facility] Comment on above: Performed By: #### P RBC #### [facility] [address] [place] [address] Dr. Kayley Hatfield MCV (RBC) [Entitic vol] 90.9 fL Normal 81.0-99.0 [facility] Comment on above: Performed By: #### P RBC #### [facility] [address] [place] [address] Dr. Kayley Hatfield MONO # 2.3 103/ul Critically high 0.3-0.8 [facility] Comment on above: Performed By: #### P RBC #### [facility] [address] [place] [address] Dr. Kayley Hatfield Monocytes/100 WBC (Bld) 13.8 % Critically high 1.7-12.0 [facility] Comment on above: Performed By: #### P RBC #### [facility] [address] [place] [address] Dr. Kayley Hatfield NEUT # 12.7 103/ul Critically high 1.4-6.5 [facility] Comment on above: Performed By: #### P RBC #### [facility] [address] [place] [address] Dr. Kayley Hatfield Neutrophils/100 WBC (Bld) 75.1 % Critically high 43.0-75.0 [facility] Comment on above: Performed By: #### P RBC #### [facility] [address] [place] [address] Dr. Kayley Hatfield Platelet mean volume (Bld) [Entitic vol] 8.9 fL Critically low 9.5-13.5 [facility] Comment on above: Performed By: #### P RBC #### [facility] [address] [place] [address] Dr. Kayley Hatfield PLT 782 103/ul Critically high 150-450 [facility] Comment on above: Performed By: #### P RBC #### [facility] [address] [place] [address] Dr. Kayley Hatfield RBC 2.64 106/ul Critically low 4.20-5.40 [facility] Comment on above: Performed By: #### P RBC #### [facility] [address] [place] [address] Dr. Kayley Hatfield WBC 16.9 103/ul Critically high 4.0-11.0 [facility] Comment on above: Performed By: #### P RBC #### [facility] [address] [place] [address] Dr. Kayley Hatfield PRBC LEUKOREDUCEDon 03-30-20 ABO and Rh group Nom (Bld) Cross Match Result Compatible Unit Blood Type O Pos Unit Number [id number] Status Information Transfused Product ID Red Blood Cells Product Code [id number] Cross Match Result Compatible Unit Blood Type O Pos Unit Number [id number] Status Information Transfused Product ID Red Blood Cells Product Code [id number] Normal [facility] Comment on above: Performed By: #### P RBC #### [facility] [address] [place] [address] Dr. Kayley Hatfield PROF CHEM 8 (BAS METB)on Anion gap [Moles/Vol] 6.9 mmol/L Normal [facility] Comment on above: Performed By: #### P RBC #### [facility] [address] [address] [address] Kayley Hatfield Calcium [Mass/Vol] 8.7 mg/dL Normal 8.5-10.1 [facility] Comment on above: Performed By: #### P RBC #### [facility] [address] [address] [address] Kayley Hatfield Chloride [Moles/Vol] 101 mmol/L Normal 98-107 [facility] Comment on above: Performed By: #### P RBC #### [facility] [address] [place] [address] Dr. Kayley Hatfield CO2 [Moles/Vol] 33.3 mmol/L Critically high 21.0-32.0 [facility] Comment on above: Performed By: #### P RBC #### [facility] [address] [address] [address] Kayley Hatfield Creatinine [Mass/Vol] 0.83 mg/dL Normal 0.55-1.02 [facility] Comment on above: Performed By: #### P RBC #### [facility] [address] [place] [address] Dr. Kayley Hatfield EGFR-AF TRISTANIAN >60 Normal >=60 [facility] Comment on above: Performed By: #### P RBC #### [facility] [address] [address] [address] Kayley Hatfield EGFR-NON AF TRISTANIAN >60 Normal >=60 [facility] Comment on above: Performed By: #### P RBC #### [facility] [address] [address] [address] Kayley Hatfield Glucose [Mass/Vol] 94 mg/dL Normal 74-106 [facility] Comment on above: Performed By: #### P RBC #### [facility] [address] [place] [address] Dr. Kayley Hatfield Potassium [Moles/Vol] 4.2 mmol/L Normal 3.5-5.1 [facility] Comment on above: Performed By: #### P RBC #### [facility] [address] [address] [address] Kayley Hatfield Sodium [Moles/Vol] 137 mmol/L Normal 136-145 [facility] Comment on above: Performed By: #### P RBC #### [facility] [address] [place] [address] Dr. Kayley Hatfield Urea nitrogen [Mass/Vol] 15.0 mg/dL Normal 7.0-18.0 [facility] Comment on above: Performed By: #### P RBC #### [facility] [address] [place] [address] Dr. Kayley Hatfield Urea nitrogen/Creatinine [Mass ratio] 18.1 mg/mg Normal [facility] Comment on above: Performed By: #### P RBC #### [facility] [address] [place] [address] Dr. Kayley Hatfield PROTEIN ELECTROPHERESISon Albumin [Mass/Vol] 3.4 g/dL Normal 2.9-4.4 [facility] Comment on above: Performed By: #### P RTELEC #### [facility] [address] [place] [address] Dr. Kayley Hatfield Albumin/Globulin [Mass ratio] 1.3 {ratio} Normal 0.7-1.7 [facility] Comment on above: Performed By: #### P RTELEC #### [facility] [address] [place] [address] Dr. Kayley Hatfield Qpefv-1-Csmfbjtw 0.3 g/dL Normal 0.0-0.4 [facility] Comment on above: Performed By: #### P RTELEC #### [facility] [address] [place] [address] Dr. Kayley Hatfield Ghgyv-3-Ixznvmgj 0.8 g/dL Normal 0.4-1.0 [facility] Comment on above: Performed By: #### P RTELEC #### [facility] [address] [place] [address] Dr. Kayley Hatfield Beta Globulin 1.0 g/dL Normal 0.7-1.3 [facility] Comment on above: Performed By: #### P RTELEC #### [facility] [address] [place] [address] Dr. Kayley Hatfield Gamma Globulin 0.5 g/dL Normal 0.4-1.8 [facility] Comment on above: Performed By: #### P RTELEC #### [facility] [address] [place] [address] Dr. Kayley Hatfield Globulin (S) [Mass/Vol] 2.6 g/dL Normal 2.2-3.9 [facility] Comment on above: Performed By: #### P RTELEC #### [facility] [address] [place] [address] Dr. Kayley Hatfield M-Sandip Not Observed Normal Not Observed [facility] Comment on above: Performed By: #### P RTELEC #### [facility] [address] [place] [address] Dr. Kayley Hatfield PDF . Normal [facility] Comment on above: Performed By: #### P RTELEC #### [facility] [address] [place] [address] Dr. Kayley Hatfield Please note: Comment Normal [facility] Comment on above: Result Comment: Prot ein electrophoresis scan will follow via computer, mail, or steward/stewardess chief cargo vessel delivery. Performed By: #### P RTELEC #### [facility] [address] [place] [address] Dr. Kayley Hatfield Protein [Mass/Vol] 6.0 g/dL Normal 6.0-8.5 [facility] Comment on above: Performed By: #### P RTELEC #### [facility] [address] [place] [address] Dr. Kayley Hatfield XR CHEST 1 Von [...] TYSHAWN MOORE Date: 2022-03-30 06:17 Normal [facility] CBC W MANUAL DIFFon 03-29-20 22 ANISOCYTOSIS 2+ Normal [facility] Comment on above: Performed By: #### C VDTBH #### [facility] [address] [place] [address] Dr. Kayley Hatfield ATYPICAL LYMPH # Normal [facility] Comment on above: Performed By: #### C VDTBH #### [facility] [address] [place] [address] Dr. Kayley Hatfield ATYPICAL LYMPH % Normal [facility] Comment on above: Performed By: #### C VDTBH #### [facility] [address] [place] [address] Dr. Kayley Hatfield BAND # 0.0 103/ul Normal 0.0-0.3 [facility] Comment on above: Performed By: #### C VDTBH #### [facility] [address] [place] [address] Dr. Kayley Hatfield BAND % 0 % Normal 0-5 [facility] Comment on above: Performed By: #### C VDTBH #### [facility] [address] [place] [address] Dr. Kayley Hatfield BASOM # 0.59 103/ul Critically high 0.00-0.10 [facility] Comment on above: Performed By: #### C VDTBH #### [facility] [address] [place] [address] Dr. Kayley Hatfield BASOM % 3.0 % Critically high 0.2-2.0 [facility] Comment on above: Performed By: #### C VDTBH #### [facility] [address] [place] [address] Dr. Kayley Hatfield BLAST # Normal [facility] Comment on above: Performed By: #### C VDTBH #### [facility] [address] [place] [address] Dr. Kayley Hatfield BLAST % Normal [facility] Comment on above: Performed By: #### C VDTBH #### [facility] [address] [place] [address] Dr. Kayley Hatfield CORRECTED WBC Normal 4.0-11.0 [facility] Comment on above: Performed By: #### C VDTBH #### [facility] [address] [place] [address] Dr. Kayley Hatfield EOS # 0.40 103/ul Normal 0.00-0.70 [facility] Comment on above: Performed By: #### C VDTBH #### [facility] [address] [place] [address] Dr. Kayley Hatfield EOS% 2.0 % Normal 0.9-7.0 [facility] Comment on above: Performed By: #### C VDTBH #### [facility] [address] [place] [address] Dr. Kayley Hatfield HCT 31.1 % Critically low 36.0-48.0 [facility] Comment on above: Performed By: #### C VDTBH #### [facility] [address] [place] [address] Dr. Kayley Hatfield HGB 9.7 g/dl Critically low 12.0-16.0 [facility] Comment on above: Performed By: #### C VDTBH #### [facility] [address] [place] [address] Dr. Kayley Hatfield HYPOCHROMASIA 1+ Normal [facility] Comment on above: Performed By: #### C VDTBH #### [facility] [address] [place] [address] Dr. Kayley Hatfield LYMPHM # 4.75 103/ul Critically high 1.20-3.80 [facility] Comment on above: Performed By: #### C VDTBH #### [facility] [address] [place] [address] Dr. Kayley Hatfield LYMPHM% 24.0 % Normal 20.5-60.0 [facility] Comment on above: Performed By: #### C VDTBH #### [facility] [address] [place] [address] Dr. Kayley Hatfield MCH 27.0 pg Normal 26.7-34.0 [facility] Comment on above: Performed By: #### C VDTBH #### [facility] [address] [place] [address] Dr. Kayley Hatfield MCHC 31.2 g/dl Normal 29.9-35.2 [facility] Comment on above: Performed By: #### C VDTBH #### [facility] [address] [place] [address] Dr. Kayley Hatfield MCV 86.6 fL Normal 81.0-99.0 [facility] Comment on above: Performed By: #### C VDTBH #### [facility] [address] [place] [address] Dr. Kayley Hatfield METAMYELOCYTE # Normal [facility] Comment on above: Performed By: #### C VDTBH #### [facility] [address] [place] [address] Dr. Kayley Hatfield METAMYELOCYTE % Normal [facility] Comment on above: Performed By: #### C VDTBH #### [facility] [address] [place] [address] Dr. Kayley Hatfield MONOM# 0.59 103/ul Normal 0.30-0.80 [facility] Comment on above: Performed By: #### C VDTBH #### [facility] [address] [place] [address] Dr. Kayley Hatfield MONOM% 3.0 % Normal 1.7-12.0 [facility] Comment on above: Performed By: #### C VDTBH #### [facility] [address] [place] [address] Dr. Kayley Hatfield MPV 8.4 fL Critically low 9.5-13.5 [facility] Comment on above: Performed By: #### C VDTBH #### [facility] [address] [place] [address] Dr. Kayley Hatfield MYELOCYTE # Normal [facility] Comment on above: Performed By: #### C VDTBH #### [facility] [address] [place] [address] Dr. Kayley Hatfield MYELOCYTE % Normal [facility] Comment on above: Performed By: #### C VDTBH #### [facility] [address] [place] [address] Dr. Kayley Hatfield NRBC Normal [facility] Comment on above: Performed By: #### C VDTBH #### [facility] [address] [place] [address] Dr. Kayley Hatfield OVALOCYTES SLIGHT Normal [facility] Comment on above: Performed By: #### C VDTBH #### [facility] [address] [place] [address] Dr. Kayley Hatfield PLT 950 103/ul Critically high 150-450 [facility] Comment on above: Performed By: #### C VDTBH #### [facility] [address] [place] [address] Dr. Kayley Hatfield RBC 3.59 106/ul Critically low 4.20-5.40 [facility] Comment on above: Performed By: #### C VDTBH #### [facility] [address] [place] [address] Dr. Kayley Hatfield RDW 26.6 % Critically high 11.0-15.0 [facility] Comment on above: Performed By: #### C VDTBH #### [facility] [address] [place] [address] Dr. Kayley Hatfield SEG # 13.46 103/ul Critically high 1.40-6.50 [facility] Comment on above: Performed By: #### C VDTBH #### [facility] [address] [place] [address] Dr. Kayley Hatfield SEG % 68.0 % Normal 43.0-75.0 [facility] Comment on above: Performed By: #### C VDTBH #### [facility] [address] [place] [address] Dr. Kayley Hatfield WBC 19.8 103/ul Critically high 4.0-11.0 [facility] Comment on above: Performed By: #### C VDTB #### [facility] [address] [place] [address] Dr. Kayley Hatfield PROF CHEM 8 (BAS METB)on Anion gap [Moles/Vol] 8.6 mmol/L Normal [facility] Comment on above: Performed By: #### L #### [facility] [address] [place] [address] Dr. Kayley Hatfield Calcium [Mass/Vol] 8.9 mg/dL Normal 8.5-10.1 [facility] Comment on above: Performed By: #### L #### [facility] [address] [place] [address] Dr. Kayley Hatfield Chloride [Moles/Vol] 102 mmol/L Normal 98-107 [facility] Comment on above: Performed By: #### L #### [facility] [address] [place] [address] Dr. Kayley Hatfield CO2 [Moles/Vol] 34.3 mmol/L Critically high 21.0-32.0 [facility] Comment on above: Performed By: #### L DH #### [facility] [address] [place] [address] Dr. Kayley Hatfield Creatinine [Mass/Vol] 0.86 mg/dL Normal 0.55-1.02 [facility] Comment on above: Performed By: #### L DH #### [facility] [address] [place] [address] Dr. Kayley Hatfield EGFR-AF TRISTANIAN >60 Normal >=60 [facility] Comment on above: Performed By: #### L DH #### [facility] [address] [place] [address] Dr. Kayley Hatfield EGFR-NON AF TRISTANIAN >60 Normal >=60 [facility] Comment on above: Performed By: #### L DH #### [facility] [address] [address] [address] Kayley Hatfield Glucose [Mass/Vol] 102 mg/dL Normal 74-106 [facility] Comment on above: Performed By: #### L DH #### [facility] [address] [address] [address] Kayley Hatfield Potassium [Moles/Vol] 3.9 mmol/L Normal 3.5-5.1 [facility] Comment on above: Performed By: #### L DH #### [facility] [address] [address] [address] Kayley Hatfield Sodium [Moles/Vol] 141 mmol/L Normal 136-145 [facility] Comment on above: Performed By: #### L DH #### [facility] [address] [address] [address] Kayley Hatfield Urea nitrogen [Mass/Vol] 20.0 mg/dL Critically high 7.0-18.0 [facility] Comment on above: Performed By: #### L DH #### [facility] [address] [address] [address] Kayley Hatfield Urea nitrogen/Creatinine [Mass ratio] 23.3 mg/mg Normal [facility] Comment on above: Performed By: #### L DH #### [facility] [address] [address] [address] Kayley Hatfield XR CHEST 1 Von [...] MIGUE REYNOSO Date: 2022-03-29 13:26 Normal [facility] XR CHEST 1 V EXAMINATION: XR [...] MIGUE REYNOSO Date: 2022-03-29 11:37 Normal [facility] XR CHEST 1 V EXAMINATION: XR [...] MIGUE REYNOSO Date: 2022-03-29 07:32 Normal [facility] XR CHEST 1 V EXAM: XR [...] ASAEL ANAND Date: 2022-03-28 22:40 Normal [facility] CBC W MANUAL DIFFon 03-28-20 22 ANISOCYTOSIS 3+ Normal [facility] Comment on above: Performed By: #### C BCMAN #### [facility] [address] [place] [address] Dr. Kayley Hatfield ATYPICAL LYMPH # Normal [facility] Comment on above: Performed By: #### C BCMAN #### [facility] [address] [place] [address] Dr. Kayley Hatfield ATYPICAL LYMPH % Normal [facility] Comment on above: Performed By: #### C BCMAN #### [facility] [address] [place] [address] Dr. Kayley Hatfield BAND # 0.3 103/ul Normal 0.0-0.3 [facility] Comment on above: Performed By: #### C BCMAN #### [facility] [address] [place] [address] Dr. Kayley Hatfield BAND % 2 % Normal 0-5 [facility] Comment on above: Performed By: #### C BCMAN #### [facility] [address] [place] [address] Dr. Kayley Hatfield BASOM # 0.00 103/ul Normal 0.00-0.10 [facility] Comment on above: Performed By: #### C BCMAN #### [facility] [address] [place] [address] Dr. Kayley Hatfield BASOM % 0.0 % Critically low 0.2-2.0 [facility] Comment on above: Performed By: #### C BCMAN #### [facility] [address] [place] [address] Dr. Kayley Hatfield BLAST # Normal [facility] Comment on above: Performed By: #### C BCMAN #### [facility] [address] [place] [address] Dr. Kayley Hatfield BLAST % Normal [facility] Comment on above: Performed By: #### C ALONZO #### [facility] [address] [address] [address] Kayley Hatfield CORRECTED WBC Normal 4.0-11.0 [facility] Comment on above: Performed By: #### C ALONOZ #### [facility] [address] [address] [address] Kayley Hatfield EOS # 0.00 103/ul Normal 0.00-0.70 [facility] Comment on above: Performed By: #### C ALONZO #### [facility] [address] [address] [address] Kayley Hatfield EOS% 0.0 % Critically low 0.9-7.0 [facility] Comment on above: Performed By: #### C ALONZO #### [facility] [address] [place] [address] Dr. Kayley Hatfield HCT 23.6 % Critically low 36.0-48.0 [facility] Comment on above: Performed By: #### C ALONZO #### [facility] [address] [address] [address] Kayley Hatfield HGB 6.8 g/dl Critically low 12.0-16.0 [facility] Comment on above: Performed By: #### C ALONZO #### [facility] [address] [place] [address] Dr. Kayley Hatfield HYPOCHROMASIA 3+ Normal [facility] Comment on above: Performed By: #### C ALONZO #### [facility] [address] [address] [address] Kayley Hatfield LYMPHM # 1.17 103/ul Critically low 1.20-3.80 [facility] Comment on above: Performed By: #### C ALONZO #### [facility] [address] [address] [address] Kayley Hatfield LYMPHM% 7.0 % Critically low 20.5-60.0 [facility] Comment on above: Performed By: #### C ALONZO #### [facility] [address] [place] [address] Dr. Kayley Hatfield MCH 24.6 pg Critically low 26.7-34.0 [facility] Comment on above: Performed By: #### C ALONZO #### [facility] [address] [place] [address] Dr. Kayley Hatfield MCHC 28.8 g/dl Critically low 29.9-35.2 [facility] Comment on above: Performed By: #### C ALONZO #### [facility] [address] [place] [address] Dr. Kayley Hatfield MCV 85.5 fL Normal 81.0-99.0 [facility] Comment on above: Performed By: #### C ALONZO #### [facility] [address] [place] [address] Dr. Kayley Hatfield METAMYELOCYTE # Normal [facility] Comment on above: Performed By: #### C ALONOZ #### [facility] [address] [place] [address] Dr. Kayley Hatfield METAMYELOCYTE % Normal [facility] Comment on above: Performed By: #### C ALONZO #### [facility] [address] [place] [address] Dr. Kayley Hatfield MONOM# 0.50 103/ul Normal 0.30-0.80 [facility] Comment on above: Performed By: #### C ALONZO #### [facility] [address] [place] [address] Dr. Kayley Hatfield MONOM% 3.0 % Normal 1.7-12.0 [facility] Comment on above: Performed By: #### C ALONZO #### [facility] [address] [place] [address] Dr. Kayley Hatfield MPV 8.6 fL Critically low 9.5-13.5 [facility] Comment on above: Performed By: #### C ALONZO #### [facility] [address] [place] [address] Dr. Kayley Hatfield MYELOCYTE # Normal [facility] Comment on above: Performed By: #### C ALONZO #### [facility] [address] [address] [address] Kayley Hatfield MYELOCYTE % Normal [facility] Comment on above: Performed By: #### C BCMAN #### [facility] [address] [address] [address] Kayley Hatfield NRBC Normal [facility] Comment on above: Performed By: #### C BCKATHY #### [facility] [address] [address] [address] Kayley Hatfield OVALOCYTES SLIGHT Normal [facility] Comment on above: Performed By: #### C ALONZO #### [facility] [address] [address] [address] Kayley Hatfield PLT 1384 103/ul Critically high 150-450 [facility] Comment on above: Performed By: #### C ALONZO #### [facility] [address] [address] [address] Kayley Hatfield RBC 2.76 106/ul Critically low 4.20-5.40 [facility] Comment on above: Performed By: #### C ALONZO #### [facility] [address] [address] [address] Kayley Hatfield RDW 0.0 % Critically low 11.0-15.0 [facility] Comment on above: Performed By: #### C ALONZO #### [facility] [address] [address] [address] Kayley Hatfield SEG # 14.70 103/ul Critically high 1.40-6.50 [facility] Comment on above: Performed By: #### C BCKTAHY #### [facility] [address] [address] [address] Kayley Hatfield SEG % 88.0 % Critically high 43.0-75.0 [facility] Comment on above: Performed By: #### C BCMAN #### [facility] [address] [address] [address] Kayley Hatfield WBC 16.7 103/ul Critically high 4.0-11.0 [facility] Comment on above: Performed By: #### C ALONZO #### [facility] [address] [place] [address] Dr. Kayley Hatfield CRPon 03-28-2022 CRP [Mass/Vol] mg/L Normal <=1.0 [facility] Comment on above: Performed By: #### H GBHCT #### [facility] [address] [place] [address] Dr. Kayley Hatfield Covid-19 PCR ([facility])on 03-10 SARS-CoV-2 (COVID-19) RNA ELBA+probe Ql (Unsp spec) Not detected Normal NOT DETECTED [facility] Comment on above: Result Comment: When [...] for this test is supported by the [place] Supervisor of Health and Human Service's declaration [...] used). Performed By: #### P RBC #### [facility] [address] [place] [address] Dr. Kayley Hatfield ER URINE PROFILEon Bilirubin Ql (U) Negative Normal NEGATIVE [facility] Comment on above: Performed By: #### P RBC #### [facility] [address] [place] [address] Dr. Kayley Hatfield Clarity (U) CLEAR Normal CLEAR [facility] Comment on above: Performed By: #### P RBC #### [facility] [address] [place] [address] Dr. Kayley Hatfield Color (U) LT. YELLOW Normal YELLOW [facility] Comment on above: Performed By: #### P RBC #### [facility] [address] [address] [address] Kayley [place] A micrscopic examination will be performed if indicated. Normal [facility] Comment on above: Performed By: #### P RBC #### [facility] [address] [address] [address] Kayley Hatfield Glucose Ql (U) Negative Normal NEGATIVE [facility] Comment on above: Performed By: #### P RBC #### [facility] [address] [address] [address] Kayley Hatfield Hemoglobin Ql (U) Negative Normal NEGATIVE [facility] Comment on above: Performed By: #### P RBC #### [facility] [address] [address] [address] Kayley Hatfield Ketones Ql (U) Negative Normal NEGATIVE [facility] Comment on above: Performed By: #### P RBC #### [facility] [address] [address] [address] Kayley Hatfield LEUKOCYTES Negative Normal NEGATIVE [facility] Comment on above: Performed By: #### P RBC #### [facility] [address] [address] [address] Kayley Hatfield Nitrite Ql (U) Negative Normal NEGATIVE [facility] Comment on above: Performed By: #### P RBC #### [facility] [address] [address] [address] Kayley Hatfield pH (U) 6.0 [pH] Normal 5-9 [facility] Comment on above: Performed By: #### P RBC #### [facility] [address] [address] [address] Kayley Hatfield SPEC GRAVITY <=1.005 Abnormal 1.005-<=1.025 [facility] Comment on above: Performed By: #### P RBC #### [facility] [address] [address] [address] Kayley Hatfield UA PROTEIN Negative Normal NEGATIVE/ TRACE [facility] Comment on above: Performed By: #### P RBC #### [facility] [address] [address] [address] Kayley Hatfield UR MICRO IND NOT INDICATED Normal [facility] Comment on above: Performed By: #### P RBC #### [facility] [address] [address] [address] Kayley Hatfield Urobilinogen Qn (U) 0.2 {Lu'U}/dL Normal 0.2 - 1. 0 [facility] Comment on above: Performed By: #### P RBC #### [facility] [address] [address] [address] Kalyey Hatfield FERRITINon 03-28-2022 Ferritin [Mass/Vol] 61.0 ng/mL Normal 8.0-252.0 [facility] Comment on above: Performed By: #### P RBC #### [facility] [address] [place] [address] Dr. Kayley Hatfield GLYCOHEMOGLOBIN A1Con 2021 ADA RECOMMENDATION SEE BELOW Normal [facility] Comment on above: Result Comment: ADA RECOMMENDED LIMIT 4.0 - 6.0 ADA THERAPEUTIC TARGET < 7.0 ACTION SUGGESTED > 7.0 Performed By: #### P RBC #### [facility] [address] [place] [address] Dr. Kayley Hatfield Glucose [Mass/Vol] 114 mg/dL Normal [facility] Comment on above: Performed By: #### P RBC #### [facility] [address] [address] [address] Kayley Hatfield HbA1c (Bld) [Mass fraction] 5.6 % Normal 4.5-6.2 [facility] Comment on above: Performed By: #### P RBC #### [facility] [address] [address] [address] Kayley Hatfield IRONon 03-28-2022 Iron [Mass/Vol] 37.0 ug/dL Critically low 50.0-170.0 [facility] Comment on above: Performed By: #### P RBC #### [facility] [address] [address] [address] Kayley Hatfield LDHon 03-28-2022 LDH 174 U/L Normal 81-234 [facility] Comment on above: Performed By: #### L DH #### [facility] [address] [address] [address] Kayley Hatfield LIPID PROFILEon 03-28-2022 CHOL-HDL RATIO NORM SEE BELOW Normal [facility] Comment on above: Result Comment: 3.3 - 4.4 LOW RISK 4.4 - 7.1 AVERAGE RISK 7.1 - 11.0 MODERATE RISK >11.0 HIGH RISK Performed By: #### P RBC #### [facility] [address] [address] [address] Kayley Hatfield Cholesterol [Mass/Vol] 193 mg/dL Normal <=200 [facility] Comment on above: Performed By: #### P RBC #### [facility] [address] [address] [address] Kayley Hatfield Cholesterol in HDL [Mass/Vol] 95 mg/dL Critically high 40-60 [facility] Comment on above: Performed By: #### P RBC #### [facility] [address] [address] [address] Kayley Hatfield Cholesterol in LDL [Mass/Vol] 74.8 mg/dL Normal [facility] Comment on above: Performed By: #### P RBC #### [facility] [address] [address] [address] Kayley Hatfield Cholesterol.total/Cho lesterol in HDL [Mass ratio] 2.0 {ratio} Normal [facility] Comment on above: Performed By: #### P RBC #### [facility] [address] [address] [address] Kayley Hatfield HDL NORMAL > or = 60 mg/dl - LO W CARDIOVASCULAR RISK <40 mg/dl - HIGH CARDIOVASCULAR RISK Normal [facility] Comment on above: Performed By: #### P RBC #### [facility] [address] [address] [address] Kayley Hatfield LDL CALC NORMAL SEE BELOW Normal [facility] Comment on above: Result Comment: <100 mg/dl OPTIMAL 100 - 129 mg/dl NEAR OR ABOVE OPTIMAL 130 - 159 mg/dl BORDERLINE HIGH 160 - 189 mg/dl HIGH >190 mg/dl VERY HIGH Performed By: #### P RBC #### [facility] [address] [address] [address] Kyaley Hatfield Triglyceride [Mass/Vol] 116 mg/dL Normal <=150 [facility] Comment on above: Performed By: #### P RBC #### [facility] [address] [place] [address] Dr. Kayley Hatfield VLDL CALC 23.2 mg/dL Normal [facility] Comment on above: Performed By: #### P RBC #### [facility] [address] [address] [address] Kayley Hatfield LIVER PROFILEon 03-28-2022 Albumin [Mass/Vol] 3.2 g/dL Critically low 3.4-5.0 [facility] Comment on above: Performed By: #### P RBC #### [facility] [address] [place] [address] Dr. Kayley Hatfield Albumin/Globulin [Mass ratio] 1.0 {ratio} Normal [facility] Comment on above: Performed By: #### P RBC #### [facility] [address] [place] [address] Dr. Kayley Hatfield ALP [Catalytic activity/Vol] 56 U/L Normal 46-116 [facility] Comment on above: Performed By: #### P RBC #### [facility] [address] [place] [address] Dr. Kayley Hatfield ALT [Catalytic activity/Vol] 32 U/L Normal 14-59 [facility] Comment on above: Performed By: #### P RBC #### [facility] [address] [place] [address] Dr. Kayley Hatfield AST [Catalytic activity/Vol] 18 U/L Normal 15-37 [facility] Comment on above: Performed By: #### P RBC #### [facility] [address] [place] [address] Dr. Kayley Hatfield BILI, CONJUGATED 0.1 mg/dL Normal 0.0-0.2 [facility] Comment on above: Performed By: #### P RBC #### [facility] [address] [address] [address] Kayley Hatfield Bilirubin [Mass/Vol] 0.2 mg/dL Normal 0.2-1.0 [facility] Comment on above: Performed By: #### P RBC #### [facility] [address] [place] [address] Dr. Kayley Hatfield Globulin (S) [Mass/Vol] 3.1 g/dL Normal [facility] Comment on above: Performed By: #### P RBC #### [facility] [address] [place] [address] Dr. Kayley Hatfield Protein [Mass/Vol] 6.3 g/dL Critically low 6.4-8.2 [facility] Comment on above: Performed By: #### P RBC #### [facility] [address] [place] [address] Dr. Kayley Hatfield MAGNESIUMon 03-28-2022 Magnesium [Mass/Vol] 1.8 mg/dL Normal 1.8-2.4 [facility] Comment on above: Performed By: #### H GBHCT #### [facility] [address] [place] [address] Dr. Kayley Hatfield PHOSPHORUSon 03-28-2022 Phosphate [Mass/Vol] 4.4 mg/dL Normal 2.6-4.7 [facility] Comment on above: Performed By: #### O BSCRN #### [facility] [address] [place] [address] Dr. Kayley Hatfield PROF CHEM 8 (BAS METB)on Anion gap [Moles/Vol] 10.1 mmol/L Normal [facility] Comment on above: Performed By: #### P RBC #### [facility] [address] [place] [address] Dr. Kayley Hatfield Calcium [Mass/Vol] 9.1 mg/dL Normal 8.5-10.1 [facility] Comment on above: Performed By: #### P RBC #### [facility] [address] [place] [address] Dr. Kayley Hatfield Chloride [Moles/Vol] 101 mmol/L Normal 98-107 [facility] Comment on above: Performed By: #### P RBC #### [facility] [address] [address] [address] Kayley Hatfield CO2 [Moles/Vol] 32.6 mmol/L Critically high 21.0-32.0 [facility] Comment on above: Performed By: #### P RBC #### [facility] [address] [address] [address] Kayley Hatfield Creatinine [Mass/Vol] 0.90 mg/dL Normal 0.55-1.02 [facility] Comment on above: Performed By: #### P RBC #### [facility] [address] [address] [address] Kayley Hatfield EGFR-AF TRISTANIAN >60 Normal >=60 [facility] Comment on above: Performed By: #### P RBC #### [facility] [address] [address] [address] Kayley Hatfield EGFR-NON AF TRISTANIAN >60 Normal >=60 [facility] Comment on above: Performed By: #### P RBC #### [facility] [address] [address] [address] Kayley Hatfield Glucose [Mass/Vol] 161 mg/dL Critically high 74-106 [facility] Comment on above: Performed By: #### P RBC #### [facility] [address] [place] [address] Dr. Kayley Hatfield Potassium [Moles/Vol] 4.7 mmol/L Normal 3.5-5.1 [facility] Comment on above: Performed By: #### P RBC #### [facility] [address] [address] [address] Kayley Hatfield Sodium [Moles/Vol] 139 mmol/L Normal 136-145 [facility] Comment on above: Performed By: #### P RBC #### [facility] [address] [address] [address] Kayley Hatfield Urea nitrogen [Mass/Vol] 15.0 mg/dL Normal 7.0-18.0 [facility] Comment on above: Performed By: #### P RBC #### [facility] [address] [place] [address] Dr. Kayley Hatfield Urea nitrogen/Creatinine [Mass ratio] 16.7 mg/mg Normal [facility] Comment on above: Performed By: #### P RBC #### [facility] [address] [place] [address] Dr. Kayley Hatfield RETICULOCYTEon 03-28-2022 RETIC 4.65 % Critically high 0.60-3.10 [facility] Comment on above: Performed By: #### L DH #### [facility] [address] [place] [address] Dr. Kayley Hatfield SED RATE WESTERGRENon 2021 SED RATE 12 mm/hr Normal <=30 [facility] Comment on above: Performed By: #### P RTELEC #### [facility] [address] [place] [address] Dr. Kayley Hatfield TSHon 03-28-2022 TSH 0.922 uIU/mL Normal 0.358-3.740 [facility] Comment on above: Performed By: #### P RBC #### [facility] [address] [place] [address] Dr. Kayley Hatfield TYPE AND SCREENon 03-28-2022 TYPE AND SCREEN Negative Normal [facility] Comment on above: Performed By: #### C VDTBH #### [facility] [address] [place] [address] Dr. Kayley Hatfield VIT B12 AND FOLATEon 022 Cobalamin (Vitamin B12) [Mass/Vol] 490.0 pg/mL Normal 193.0-986.0 [facility] Comment on above: Performed By: #### L DH #### [facility] [address] [place] [address] Dr. Kayley Hatfield FOLATE 14.00 ng/mL Normal 8.60-58.90 [facility] Comment on above: Performed By: #### L DH #### [facility] [address] [place] [address] Dr. Kayley Hatfield VITAMIN D 25 OHon 03-28-2022 VIT D 25-OH 41.5 ng/mL Normal [facility] Comment on above: Performed By: #### O BSCRN #### [facility] [id number] Kayley Hatfield VIT D RANGES SEE BELOW Normal [facility] Comment on above: Result Comment: <20 ng/mL Vit D deficient 20 - <30 ng/mL Vit D insufficient 30 - 100 ng/mL Vit D sufficient >100 ng/mL Potential Toxicity Performed By: #### O BSCRN #### [facility] [address] [place], [place] [address] Dr. Kayley Hatfield XR CHEST 1 Von [...] STEPHEN ARAIZA Date: 2022-03-28 21:37 Normal [facility] BASIC METABOLIC PANELon Calcium [Mass/Vol] 8.9 mg/dL Normal 8.6-10.3 The [facility] Comment on above: Order Comment: No: D o not add to previous draw Performed By: #### 3 5200, [id number], 76544, 52949 #### [facility] [address] [place] [address], [place] Chloride [Moles/Vol] 97 mmol/L Low 98-107 The [facility] Comment on above: Order Comment: No: D o not add to previous draw Performed By: #### 3 5200, 39431, 44320, 51087 #### [facility] [address] [place] [address], [place] CO2 [Moles/Vol] 35 mmol/L High 21-31 The [facility] Comment on above: Order Comment: No: D o not add to previous draw Performed By: #### 3 5200, 30109, 39267, 70122 #### [facility] [address] [place] [address], [facility] Creatinine [Mass/Vol] 0.65 mg/dL Normal 0.60-1.20 The [facility] Comment on above: Order Comment: No: D o not add to previous draw Performed By: #### 3 5200, 15953, 98768, 20756 #### [facility] [address] [place] [address], [place] GFR/1.73 sq M.predicted among non-blacks MDRD (S/P/Bld) [Vol rate/Area] mL/min/{1.73_m2} Normal >60 The [facility] Comment on above: Order Comment: No: D o not add to previous draw Result Comment: The [facility]'s estimated glomerular filtration rate (eGFR) will [...] of individuals. Performed By: #### 3 5200, 68892, 00556, 91457 #### [facility] [address] [place] [address], [place] Glucose [Mass/Vol] 161 mg/dL High 70-100 The [facility] Comment on above: Order Comment: No: D o not add to previous draw Performed By: #### 3 5200, 93919, 90830, 50035 #### [facility] [address] [place] [address], [place] Potassium [Moles/Vol] 3.9 mmol/L Normal 3.5-5.1 The [facility] Comment on above: Order Comment: No: D o not add to previous draw Performed By: #### 3 5200, 62502, 25752, 56894 #### [facility] [address] [place] [address], [place] Sodium [Moles/Vol] 136 mmol/L Normal 136-145 The [facility] Comment on above: Order Comment: No: D o not add to previous draw Performed By: #### 3 0, 03316, 20781, 10645 #### [facility] [address] [place] [address], [place] Urea nitrogen [Mass/Vol] 16 mg/dL Normal 7-25 The [facility] Comment on above: Order Comment: No: D o not add to previous draw Performed By: #### 3 5200, 59162, 73511, 16857 #### [facility] [address] [place] [address], [place] CBC COMPLETE BLOOD COUNTon 0 - Hematocrit (Bld) [Volume fraction] 28.2 % Low 36.0-45.0 The [facility] Comment on above: Order Comment: No: D o not add to previous draw Performed By: #### 3 5200 #### [facility] [address] [place] [address], [place] Hemoglobin (Bld) [Mass/Vol] 8.3 g/dL Low 12.0-15.0 The [facility] Comment on above: Order Comment: No: D o not add to previous draw Performed By: #### 3 5200 #### [facility] [address] [place] [address], [facility] MCH (RBC) [Entitic mass] 22.9 pg Low 27.0-33.0 The [facility] Comment on above: Order Comment: No: D o not add to previous draw Performed By: #### 3 5200 #### [facility] [address] [place] [address], [facility] MCHC (RBC) [Mass/Vol] 29.4 g/dL Low 32.0-35.0 The [facility] Comment on above: Order Comment: No: D o not add to previous draw Performed By: #### 3 5200 #### [facility] [address] [place] [id number], [facility] MCV (RBC) [Entitic vol] 77.9 fL Low 82.0-98.0 The [facility] Comment on above: Order Comment: No: D o not add to previous draw Performed By: #### 3 5200 #### [facility] [address] [place] [id number], [facility] Nucleated RBC/100 WBC (Bld) [Ratio] 0 % Normal 0-0 The [facility] Comment on above: Order Comment: No: D o not add to previous draw Performed By: #### 3 5200 #### [facility] [address] [place] [id number], [facility] PLAT CNT 221 10*3/uL Normal 150-400 The [facility] Comment on above: Order Comment: No: D o not add to previous draw Performed By: #### 3 5200 #### [facility] [address] [facility] [address], [facility] RBC (Bld) [#/Vol] 3.62 10*6/uL Low 3.80-5.00 The [facility] Comment on above: Order Comment: No: D o not add to previous draw Performed By: #### 3 5200 #### [facility] [address] [place] [address], [place] RDW ---- Normal 11.5-15.0 The [facility] Comment on above: Order Comment: No: D o not add to previous draw Result Comment: Prev ious RDW was unable to be calculated Performed By: #### 3 5200 #### [facility] [address] [place] [address], [place] WBC (Bld) [#/Vol] 11.88 10*3/uL High 4.00-10.60 The [facility] Comment on above: Order Comment: No: D o not add to previous draw Performed By: #### 3 5200 #### [facility] [address] [place] [address], [place] POC GLUCOSE LABon 03-15-2022 Glucose [Mass/Vol] 109 mg/dL High 70-100 The [facility] Comment on above: Performed By: #### 8 [id number] ####[facility] [place] [address], [place] POC GLUCOSE LABon 03-14-2022 Glucose [Mass/Vol] 278 mg/dL High 70-100 The The [facility] Comment on above: Performed By: #### 8 5499 ####[facility] [place] [address], [place] Glucose [Mass/Vol] 195 mg/dL High 70-100 The [facility] Comment on above: Performed By: #### 8 5499 ####[facility] [place] [address], [place] Glucose [Mass/Vol] 114 mg/dL High 70-100 The [facility] Comment on above: Performed By: #### 8 5499 ####[facility] [place] [address], [place] Glucose [Mass/Vol] 113 mg/dL High 70-100 The [facility] Comment on above: Performed By: #### 3 5200 #### [id number] [place] [address] PORTABLE CHEST 1 VIEWon PORTABLE CHEST 1 VIEW [facility] Department of Radiology [address] [place] [id number] Patient Name: LISE CANAELS : 1955 Sex: F Age: Race: White Pt. Location: [id number] Patient Status: I Ordered Date: 03/14/2022 2:35:00 [...] chest. Electronically signed: Tyshawn Tapia. Transcribed by: [email or web address], User Resident: Electronically Signed by: TYSHAWN TAPIA @ 03/14/2022 03:31 PM Normal [facility] Comment on above: Order Comment: Check Chest Tube Position, S/P Chest tube DC'd PORTABLE CHEST 1 VIEW [facility] Department of Radiology [address] [place] [id number] Patient Name: LISE CANALES : 1955 Sex: F Age: Race: White Pt. Location: [id number] Patient Status: I Ordered Date: 03/14/2022 6:50:00 [...] pneumothorax. Electronically signed: Tyshawn Tapia. Transcribed by: [email or web address], User Resident: Electronically Signed by: TYSHAWN TAPIA @ 03/14/2022 02:56 PM Normal The [facility] Comment on above: Order Comment: Check Chest Tube Position, S/P Chest tube DC'd POC GLUCOSE LABon 03-13-2022 Glucose [Mass/Vol] 282 mg/dL High 70-100 The [facility] Comment on above: Performed By: #### 8 5499 ####[facility] [place] [address], [facility] Glucose [Mass/Vol] 163 mg/dL High 70-100 The [facility] Comment on above: Performed By: #### 8 5499 ####[facility] [place] [address], [facility] Glucose [Mass/Vol] 149 mg/dL High 70-100 The [facility] Comment on above: Performed By: #### 3 5200 #### [facility] [address] [place] [address], [facility] Glucose [Mass/Vol] 149 mg/dL High 70-100 The [facility] Comment on above: Performed By: #### 8 5499 ####[facility] [place] [address], [facility] PORTABLE CHEST 1 VIEWon PORTABLE CHEST 1 VIEW [facility] Department of Radiology [address] [place] [address] Patient Name: LISE CANALES : 1955 Sex: F Age: Race: White Pt. Location: [address] [place] [address] Patient Status: I Ordered Date: 03/13/2022 4:15:00 [...] morning Electronically signed: Avinash Mckay. Transcribed by: [email or web address], User Resident: Electronically Signed by: AVINASH MCKAY @ 03/13/2022 06:20 PM Normal The [facility] Comment on above: Order Comment: Check Chest Tube Position, S/P Chest tube DC'd PORTABLE CHEST 1 VIEW [facility] Department of Radiology [address] [place] [id number] Patient Name: LISE CANALES : 1955 Sex: F Age: Race: White Pt. Location: [id number] Patient Status: I Ordered Date: 03/13/2022 6:50:00 [...] congestion. Electronically signed: Tyshawn Tapia. Transcribed by: [email or web address], User Resident: Electronically Signed by: TYSHAWN TAPIA @ 03/13/2022 08:34 AM Normal The [facility] Comment on above: Order Comment: Evalu ate for Aspiration POTASSIUM BLOODon 03-13-2022 Potassium [Moles/Vol] 4.5 mmol/L Normal 3.5-5.1 The [facility] Comment on above: Order Comment: No: D o not add to previous draw Performed By: #### 3 5200 #### [facility] [address] [place] [address], [facility] BASIC METABOLIC PANELon Calcium [Mass/Vol] 9.4 mg/dL Normal 8.6-10.3 The [facility] Comment on above: Order Comment: Check Chest Tube Position, S/P Chest tube DC'd Performed By: #### 0 0071 ####[facility] [facility] [address], [facility] Chloride [Moles/Vol] 98 mmol/L Normal 98-107 The [facility] Comment on above: Order Comment: Check Chest Tube Position, S/P Chest tube DC'd Performed By: #### 0 0071 ####[facility] [facility] [place] [address], [facility] CO2 [Moles/Vol] 34 mmol/L High 21-31 The [facility] Comment on above: Order Comment: Check Chest Tube Position, S/P Chest tube DC'd Performed By: #### 0 0071 ####[address] [place] [address], [facility] Creatinine [Mass/Vol] 0.56 mg/dL Low 0.60-1.20 The [facility] Comment on above: Order Comment: Check Chest Tube Position, S/P Chest tube DC'd Performed By: #### 0 0071 ####[address] [place] [address], [facility] GFR/1.73 sq M.predicted among non-blacks MDRD (S/P/Bld) [Vol rate/Area] mL/min/{1.73_m2} Normal >60 The [facility] Comment on above: Order Comment: Check Chest Tube Position, S/P Chest tube DC'd Result Comment: The [facility]'s estimated glomerular filtration rate (eGFR) will [...] of individuals. Performed By: #### 0 0071 ####[facility] [facility] [address], [place] Glucose [Mass/Vol] 114 mg/dL High 70-100 The [facility] Comment on above: Order Comment: Check Chest Tube Position, S/P Chest tube DC'd Performed By: #### 0 0071 ####[facility] [place] [address], [facility] Potassium [Moles/Vol] 3.3 mmol/L Low 3.5-5.1 The [facility] Comment on above: Order Comment: Check Chest Tube Position, S/P Chest tube DC'd Performed By: #### 0 0071 ####[facility] [place] [address], [facility] Sodium [Moles/Vol] 140 mmol/L Normal 136-145 The [facility] Comment on above: Order Comment: Check Chest Tube Position, S/P Chest tube DC'd Performed By: #### 0 0071 ####[facility] [place] [address], [facility] Urea nitrogen [Mass/Vol] 9 mg/dL Normal 7-25 The [facility] Comment on above: Order Comment: Check Chest Tube Position, S/P Chest tube DC'd Performed By: #### 0 0071 ####[facility] [place] [address], [facility] CBC COMPLETE BLOOD COUNTon 0 03-12-2022 Hematocrit (Bld) [Volume fraction] 35.2 % Low 36.0-45.0 The [facility] Comment on above: Order Comment: No: D o not add to previous draw Performed By: #### 3 5200 #### [facility] [address] [place] [address], [facility] Hemoglobin (Bld) [Mass/Vol] 10.1 g/dL Low 12.0-15.0 The [facility] Comment on above: Order Comment: No: D o not add to previous draw Performed By: #### 3 5200 #### [facility] [address] [place] [address], [facility] IMM PLATELET FRAC 3.6 % Normal 0.8-6.3 The [facility] Comment on above: Order Comment: No: D o not add to previous draw Performed By: #### 3 5200 #### [facility] [address] [place] [id number], [facility] MCH (RBC) [Entitic mass] 21.9 pg Low 27.0-33.0 The [facility] Comment on above: Order Comment: No: D o not add to previous draw Performed By: #### 3 5200 #### [facility] [address] [place] [id number], [facility] MCHC (RBC) [Mass/Vol] 28.7 g/dL Low 32.0-35.0 The [facility] Comment on above: Order Comment: No: D o not add to previous draw Performed By: #### 3 5200 #### [facility] [address] [facility] [place] [address], [facility] MCV (RBC) [Entitic vol] 76.2 fL Low 82.0-98.0 The [facility] Comment on above: Order Comment: No: D o not add to previous draw Performed By: #### 3 5200 #### [facility] [address] [facility] [address], [facility] Nucleated RBC/100 WBC (Bld) [Ratio] 0 % Normal 0-0 The [facility] Comment on above: Order Comment: No: D o not add to previous draw Performed By: #### 3 5200 #### [facility] [address] [facility] [place] [id number], [facility] PLAT CNT 129 10*3/uL Low 150-400 The [facility] Comment on above: Order Comment: No: D o not add to previous draw Performed By: #### 3 5200 #### [facility] [address] [facility] [place] [id number], [facility] RBC (Bld) [#/Vol] 4.62 10*6/uL Normal 3.80-5.00 The [facility] Comment on above: Order Comment: No: D o not add to previous draw Performed By: #### 3 5200 #### [facility] [address] [place] [address], [facility] RDW Unable to Calculate Normal 11.5-15.0 The [facility] Comment on above: Order Comment: No: D o not add to previous draw Performed By: #### 3 5200 #### [facility] [address] [place] [address], [place] WBC (Bld) [#/Vol] 11.72 10*3/uL High 4.00-10.60 The [facility] Comment on above: Order Comment: No: D o not add to previous draw Performed By: #### 3 5200 #### [facility] [address] [place] [address], [facility] POC GLUCOSE LABon 03-12-2022 Glucose [Mass/Vol] 252 mg/dL High 70-100 The [facility] Comment on above: Performed By: #### 3 5200 #### [facility] [address] [place] [address], [place] POC GLUCOSE LABon 03-11-2022 Glucose [Mass/Vol] 121 mg/dL High 70-100 The [facility] Comment on above: Performed By: #### 8 5499 ####[facility] [place] [address], [place] Glucose [Mass/Vol] 122 mg/dL High 70-100 The [facility] Comment on above: Performed By: #### 3 5200 #### [facility] [address] [place] [address], [place] Glucose [Mass/Vol] 86 mg/dL Normal 70-100 The [facility] Comment on above: Performed By: #### 3 5200 #### [facility] [address] [place] [address], [place] PORTABLE CHEST 1 VIEWon PORTABLE CHEST 1 VIEW [facility] Department of Radiology [address] [place] [address] Patient Name: LISE CANALES : 1955 Sex: F Age: Race: White Pt. Location: [id number] Patient Status: I Ordered Date: 03/11/2022 3:25:00 [...] abnormalities Electronically signed: Avinash Mckay. Transcribed by: [email or web address], User Resident: Electronically Signed by: AVINASH MCKAY @ 03/11/2022 06:30 PM Normal The [facility] Comment on above: Order Comment: Evalu ate for Atelectasis CBC COMPLETE BLOOD COUNTon 0 - Erythrocyte distribution width (RBC) [Ratio] 29.9 % High 11.5-15.0 The [facility] Comment on above: Order Comment: No: D o not add to previous draw Performed By: #### 3 5200 #### [facility] [address] [place] [address], [facility] Hematocrit (Bld) [Volume fraction] 32.2 % Low 36.0-45.0 The [facility] Comment on above: Order Comment: No: D o not add to previous draw Performed By: #### 3 5200 #### [facility] [address] [place] [address], [facility] Hemoglobin (Bld) [Mass/Vol] 9.2 g/dL Low 12.0-15.0 The [facility] Comment on above: Order Comment: No: D o not add to previous draw Performed By: #### 3 5200 #### [facility] [address] [place] [address], [place] IMM PLATELET FRAC 3.4 % Normal 0.8-6.3 The [facility] Comment on above: Order Comment: No: D o not add to previous draw Performed By: #### 3 5200 #### [facility] [address] [place] [address], [place] MCH (RBC) [Entitic mass] 21.9 pg Low 27.0-33.0 The [facility] Comment on above: Order Comment: No: D o not add to previous draw Performed By: #### 3 5200 #### [facility] [address] [place] [address], [place] MCHC (RBC) [Mass/Vol] 28.6 g/dL Low 32.0-35.0 The [facility] Comment on above: Order Comment: No: D o not add to previous draw Performed By: #### 3 5200 #### [facility] [address] [place] [address], [facility] MCV (RBC) [Entitic vol] 76.7 fL Low 82.0-98.0 The [facility] Comment on above: Order Comment: No: D o not add to previous draw Performed By: #### 3 5200 #### [facility] [address] [place] [address], [facility] Nucleated RBC/100 WBC (Bld) [Ratio] 0 % Normal 0-0 The [facility] Comment on above: Order Comment: No: D o not add to previous draw Performed By: #### 3 5200 #### [facility] [address] [facility] [address], [facility] PLAT CNT 124 10*3/uL Low 150-400 The [facility] Comment on above: Order Comment: No: D o not add to previous draw Performed By: #### 3 5200 #### [facility] [address] [place] [address], [facility] RBC (Bld) [#/Vol] 4.20 10*6/uL Normal 3.80-5.00 The [facility] Comment on above: Order Comment: No: D o not add to previous draw Performed By: #### 3 5200 #### [facility] [address] [place] [id number], [facility] WBC (Bld) [#/Vol] 12.68 10*3/uL High 4.00-10.60 The [facility] Comment on above: Order Comment: No: D o not add to previous draw Performed By: #### 3 5200 #### [facility] [address] [place] [id number], [facility] HEMOGLOBIN A1Con 03-10-2022 Glucose [Moles/Vol] 143 mmol/L Normal The [facility] Comment on above: Order Comment: No: D o not add to previous draw Result Comment: Resu lt changed by BSHORT on 03/10/2022 13:15. The previous value was 140. Performed By: #### 3 1791 #### [facility] [address] [facility] [place] [address], [place] HbA1c (Bld) [Mass fraction] 6.6 % High 4.0-6.0 The [facility] Comment on above: Order Comment: No: D o not add to previous draw Result Comment: Resu lt changed by BSHORT on 03/10/2022 13:15. The previous value was 6.5. Performed By: #### 3 1791 #### [facility] [address] [facility] [place] [address], [place] POC GLUCOSE LABon 03-10-2022 Glucose [Mass/Vol] 107 mg/dL High 70-100 The [facility] Comment on above: Performed By: #### 3 5200 #### [facility] [address] [facility] [address], [place] Glucose [Mass/Vol] 100 mg/dL Normal 70-100 The [facility] Comment on above: Performed By: #### 8 5499 ####[facility] [facility] [address], [place] Glucose [Mass/Vol] 147 mg/dL High 70-100 The [facility] Comment on above: Performed By: #### 8 5499 ####[facility] [facility] [address], [place] Glucose [Mass/Vol] 65 mg/dL Low 70-100 The [facility] Comment on above: Performed By: #### 8 5499 ####[facility] [place] [address], [place] PORTABLE CHEST 1 VIEWon PORTABLE CHEST 1 VIEW [facility] Department of Radiology [address] [place] [id number] Patient Name: LISE CANALES : 1955 Sex: F Age: Race: White Pt. Location: [id number] Patient Status: I Ordered Date: 03/10/2022 7:40:00 [...] recommended. Electronically signed: Derek Ingram. Transcribed by: [id number], User Resident: Electronically Signed by: DEREK INGRAM @ 03/10/2022 12:10 PM Normal The [facility] Comment on above: Order Comment: No: D o not add to previous draw *URINE CULTUREon 03-09-2022 *URINE CULTURE Clinical Report: (D) Specimen/Source: URINE/CLEAN VOID URINE Collected: 03/09/2022 01:58 Status: Final Last Updated: 03/10/2022 08:51 ISO (Final) 50,000 - 100,000 Cfu/mL Mixed Lexi: Multiple Organisms present suggest contamination. Suggest Repeat Specimen Normal The [facility] Comment on above: Performed By: #### 3 0339 ####[facility] CBC W/DIFFon 03-09-2022 ABS IMM GRANS 0.1 10*3/uL Normal 0.0-0.2 The [facility] Comment on above: Order Comment: Check Chest Tube Position, S/P Chest tube DC'd Performed By: #### 5 0103 ####[facility] ABS NEUTROPHILS 13.3 10*3/uL High 1.6-7.6 The [facility] Comment on above: Order Comment: Check Chest Tube Position, S/P Chest tube DC'd Performed By: #### 5 0103 ####[facility] ANISO Moderate Normal The [facility] Comment on above: Order Comment: Check Chest Tube Position, S/P Chest tube DC'd Performed By: #### 5 0103 ####[facility] Basophils (Bld) [#/Vol] 0.0 10*3/uL Normal 0.0-0.2 The [facility] Comment on above: Order Comment: Check Chest Tube Position, S/P Chest tube DC'd Performed By: #### 5 0103 ####[facility] [place] [address], [facility] Basophils/100 WBC (Bld) 0.3 % Normal 0.0-1.0 The [facility] Comment on above: Order Comment: Check Chest Tube Position, S/P Chest tube DC'd Performed By: #### 5 3 ####[facility] [facility] [place] [address], [facility] Eosinophils (Bld) [#/Vol] 0.1 10*3/uL Normal 0.0-0.5 The [facility] Comment on above: Order Comment: Check Chest Tube Position, S/P Chest tube DC'd Performed By: #### 5 3 ####[facility] [facility] [place] [address], [facility] Eosinophils/100 WBC (Bld) 0.5 % Normal 0.0-6.0 The [facility] Comment on above: Order Comment: Check Chest Tube Position, S/P Chest tube DC'd Performed By: #### 3 ####[facility] Erythrocyte distribution width (RBC) [Ratio] 28.7 % High 11.5-15.0 The [facility] Comment on above: Order Comment: Check Chest Tube Position, S/P Chest tube DC'd Performed By: #### 5 3 ####[facility] Hematocrit (Bld) [Volume fraction] 29.1 % Low 36.0-45.0 The [facility] Comment on above: Order Comment: Check Chest Tube Position, S/P Chest tube DC'd Performed By: #### 5 3 ####[facility] [facility] Hemoglobin (Bld) [Mass/Vol] 8.3 g/dL Low 12.0-15.0 The [facility] Comment on above: Order Comment: Check Chest Tube Position, S/P Chest tube DC'd Performed By: #### 5 0103 ####[facility] HYPO Slight Normal The [facility] Comment on above: Order Comment: Check Chest Tube Position, S/P Chest tube DC'd Performed By: #### 5 0103 ####[facility] IMMATURE GRANS 0.5 % Normal 0.0-1.0 The [facility] Comment on above: Order Comment: Check Chest Tube Position, S/P Chest tube DC'd Performed By: #### 5 0103 ####[facility] Lymphocytes (Bld) [#/Vol] 0.8 10*3/uL Low 1.2-4.0 The [facility] Comment on above: Order Comment: Check Chest Tube Position, S/P Chest tube DC'd Performed By: #### 5 0103 ####[place] [address] [address] Lymphocytes/100 WBC (Bld) 5.5 % Low 20.0-45.0 The [facility] Comment on above: Order Comment: Check Chest Tube Position, S/P Chest tube DC'd Performed By: #### 5 0103 ####[facility] MCH (RBC) [Entitic mass] 21.7 pg Low 27.0-33.0 The [facility] Comment on above: Order Comment: Check Chest Tube Position, S/P Chest tube DC'd Performed By: #### 5 0103 ####[facility] MCHC (RBC) [Mass/Vol] 28.5 g/dL Low 32.0-35.0 The [facility] Comment on above: Order Comment: Check Chest Tube Position, S/P Chest tube DC'd Performed By: #### 5 0103 ####[facility] MCV (RBC) [Entitic vol] 76.2 fL Low 82.0-98.0 The [facility] Comment on above: Order Comment: Check Chest Tube Position, S/P Chest tube DC'd Performed By: #### 5 0103 ####[facility] Monocytes (Bld) [#/Vol] 1.1 10*3/uL High 0.1-1.0 The [facility] Comment on above: Order Comment: Check Chest Tube Position, S/P Chest tube DC'd Performed By: #### 5 3 ####[facility] MONOS 7.3 % Normal 5.0-12.0 The [facility] Comment on above: Order Comment: Check Chest Tube Position, S/P Chest tube DC'd Performed By: #### 5 3 ####[facility] Neutrophils/100 WBC (Bld) 85.9 % High 40.0-72.0 The [facility] Comment on above: Order Comment: Check Chest Tube Position, S/P Chest tube DC'd Performed By: #### 5 3 ####[facility] Nucleated RBC/100 WBC (Bld) [Ratio] 0 % Normal 0-0 The [facility] Comment on above: Order Comment: Check Chest Tube Position, S/P Chest tube DC'd Performed By: #### 5 3 ####[facility] PLAT CNT 149 10*3/uL Low 150-400 The [facility] Comment on above: Order Comment: Check Chest Tube Position, S/P Chest tube DC'd Performed By: #### 5 0103 ####[facility] [facility].[address] POIK Slight Normal The [facility] Comment on above: Order Comment: Check Chest Tube Position, S/P Chest tube DC'd Performed By: #### 5 0103 ####[facility] [facility].[address] POLY Slight Normal The [facility] Comment on above: Order Comment: Check Chest Tube Position, S/P Chest tube DC'd Performed By: #### 5 0103 ####[facility] [facility].[address] RBC (Bld) [#/Vol] 3.82 10*6/uL Normal 3.80-5.00 The [facility] Comment on above: Order Comment: Check Chest Tube Position, S/P Chest tube DC'd Performed By: #### 5 0103 ####[facility] [facility].[address] WBC (Bld) [#/Vol] 15.41 10*3/uL High 4.00-10.60 The [facility] Comment on above: Order Comment: Check Chest Tube Position, S/P Chest tube DC'd Performed By: #### 5 0103 ####[facility] [facility].[address] COMP METABOLIC PANELon 03-09 Albumin [Mass/Vol] 3.8 g/dL Normal 3.5-5.7 The [facility] Comment on above: Order Comment: No: D o not add to previous draw Performed By: #### 3 5200, 62821, 25052, 06898 #### [facility] [address] ALKALINE PHOSPH 52 IU/L Normal 34-104 The [facility] Comment on above: Order Comment: No: D o not add to previous draw Performed By: #### 3 5200, 85979, 86736, 23752 #### [facility] [address] [place] [address], [place] ALT [Catalytic activity/Vol] 13 U/L Normal 7-52 The [facility] Comment on above: Order Comment: No: D o not add to previous draw Performed By: #### 3 5200, 38811, 96003, 31888 #### [facility] [address] [place] [address], [place] AST [Catalytic activity/Vol] 14 U/L Normal 13-39 The [facility] Comment on above: Order Comment: No: D o not add to previous draw Performed By: #### 3 5200, 48238, 38516, 00508 #### [facility] [address] [place] [address], [place] Bilirubin [Mass/Vol] 0.4 mg/dL Normal 0.3-1.0 The [facility] Comment on above: Order Comment: No: D o not add to previous draw Performed By: #### 3 5200, 73682, 61309, 12889 #### [facility] [address] [place] [address], [place] Calcium [Mass/Vol] 9.2 mg/dL Normal 8.6-10.3 The [facility] Comment on above: Order Comment: No: D o not add to previous draw Performed By: #### 3 5200, 09549, 28839, 22449 #### [facility] [address] [place] [address], [place] Chloride [Moles/Vol] 99 mmol/L Normal 98-107 The [facility] Comment on above: Order Comment: No: D o not add to previous draw Performed By: #### 3 5200, 09290, 36326, 00208 #### [facility] [address] [place] [address], [facility] CO2 [Moles/Vol] 33 mmol/L High 21-31 The [facility] Comment on above: Order Comment: No: D o not add to previous draw Performed By: #### 3 5200, 03038, 26969, 98434 #### [facility] [address] [place] [address], [facility] Creatinine [Mass/Vol] 0.79 mg/dL Normal 0.55-1.02 The [facility] Comment on above: Order Comment: No: D o not add to previous draw Performed By: #### 3 5200, 31791, 92031, 75926 #### [facility] [facility] [address] Performed By: #### B LDCX1 #### [facility] [address] [place] [address] Dr. Kayley Hatfield GFR/1.73 sq M.predicted among non-blacks MDRD (S/P/Bld) [Vol rate/Area] mL/min/{1.73_m2} Normal >60 The [facility] Comment on above: Order Comment: No: D o not add to previous draw Result Comment: The [facility]'s estimated glomerular filtration rate (eGFR) will [...] of individuals. Performed By: #### 3 5200, 59771, 36515, 39605 #### [facility] [address] [place] [address], [facility] Glucose [Mass/Vol] 125 mg/dL High 70-100 The [facility] Comment on above: Order Comment: No: D o not add to previous draw Performed By: #### 3 5200, 93511, 21558, 38018 #### [facility] [address] [place] [address], [place] Potassium [Moles/Vol] 4.7 mmol/L Normal 3.5-5.1 The [facility] Comment on above: Order Comment: No: D o not add to previous draw Performed By: #### 3 5200, 54987, 86446, 54765 #### [facility] [address] [place] [address], [place] Protein [Mass/Vol] 5.9 g/dL Low 6.0-8.3 The [facility] Comment on above: Order Comment: No: D o not add to previous draw Performed By: #### 3 5200, 77429, 84158, 39617 #### [facility] [address] [place] [address], [facility] Sodium [Moles/Vol] 136 mmol/L Normal 136-145 The [facility] Comment on above: Order Comment: No: D o not add to previous draw Performed By: #### 3 5200, 26442, 49426, 06245 #### [facility] [address] [place] [address], [facility] Urea nitrogen [Mass/Vol] 12 mg/dL Normal 7-25 The [facility] Comment on above: Order Comment: No: D o not add to previous draw Performed By: #### 3 5200, 37689, 39649, 49214 #### [facility] [address] [place] [address], [place] LIPID PROFILEon 03-09-2022 Cholesterol [Mass/Vol] 160 mg/dL Normal 120-200 The [facility] Comment on above: Order Comment: No: D o not add to previous draw Result Comment: CHOL ESTEROL REFERENCE RANGE: 20 YEARS AND OLDER CARDIOVASCULAR RISK Less than 200 mg/dl Low Risk 200 to 239 mg/dl Borderline Risk 240 mg/dl and greater High Risk Performed By: #### 3 5200, 35338, 94554, 11944 #### [facility] [address] [place] [address], [place] Cholesterol in HDL [Mass/Vol] 76 mg/dL Normal 23-92 The [facility] Comment on above: Order Comment: No: D o not add to previous draw Result Comment: Slig ht variation in normal range could be due to gender and/or age. HDL CHOLESTEROL REFERENCE RANGE: 20 years and older Cardiovascular Risk > or =60 mg/dL Desirable 40 TO 59 mg/dL Low Risk <40 mg/dL High Risk Performed By: #### 3 5200, 78032, 54590, 36084 #### [facility] [address] [place] [address], [facility] Cholesterol in LDL [Mass/Vol] 48 mg/dL Normal 0-130 The [facility] Comment on above: Order Comment: No: D o not add to previous draw Result Comment: LDL IS A CALCULATION LDL IS ONLY VALID IF THE TRIG IS LESS THAN 400. Performed By: #### 3 5200, 96977, 74571, 35975 #### [facility] [address] [place] [address], [place] Cholesterol.total/Cho lesterol in HDL [Mass ratio] 2.1 {ratio} Normal .0-4.5 The [facility] Comment on above: Order Comment: No: D o not add to previous draw Performed By: #### 3 5200, 22971, 63800, 06752 #### [facility] [address] [place] [address], [facility] NON-HDL CHOLESTEROL 84 mg/dL Normal The [facility] Comment on above: Order Comment: No: D o not add to previous draw Performed By: #### 3 5200, 46282, 61524, 50154 #### [facility] [address] [place] [address], [place] Triglyceride [Mass/Vol] 179 mg/dL High 40-149 The [facility] Comment on above: Order Comment: No: D o not add to previous draw Result Comment: TRIG LYCERIDE REFERENCE RANGE: 20 YEARS AND OLDER CARDIOVASCULAR RISK LESS THAN 150 mg/dl LOW RISK 150 TO 199 mg/dl BORDERLINE RISK 200 mg/dl AND GREATER HIGH RISK Performed By: #### 3 5200, 12071, 95506, 43727 #### [facility] [address] [place] [address], [facility] VLDL CHOL 36 mg/dL Normal 0-40 The [facility] Comment on above: Order Comment: No: D o not add to previous draw Performed By: #### 3 5200, 47012, 39758, 80382 #### [facility] [address] [place] [address], [facility] POC GLUCOSE LABon 03-09-2022 Glucose [Mass/Vol] 105 mg/dL High 70-100 The [facility] Comment on above: Performed By: #### 8 5499 ####[facility].[address] POC SARS COV2 ANTIGEN NEGATI VEon 03-09-2022 POC SARS COV2 ANTIGEN NEG Negative Normal NEGATIVE The [facility] Comment on above: Result Comment: Nega [...] antigen from SARS-CoV-2 in direct nasopharyngeal swab (PHARMACY GENERAL MANAGER) specimens from individuals who are suspected [...] of Accreditation. Performed By: #### 3 2044 ####[facility] [address] PORTABLE CHEST 1 VIEWon PORTABLE CHEST 1 VIEW [facility] Department of Radiology [address] [place] [address] Patient Name: LISE CANALES : 1955 Sex: F Age: Race: White Pt. Location: [address] [place] [address] Patient Status: I Ordered Date: 03/09/2022 8:55:00 [...] COPD. Electronically signed: Derek Ingram. Transcribed by: [email or web address], User Resident: Electronically Signed by: DEREK INGRAM @ 03/09/2022 02:48 PM Normal The [facility] Comment on above: Order Comment: Check Chest Tube Position, S/P Chest tube DC'd TROPONIN-Ion 03-09-2022 Troponin I.cardiac [Mass/Vol] 0.00 ng/mL Normal 0.00-0.04 The [facility] Comment on above: Order Comment: No: D o not add to previous draw Result Comment: REFE RENCE RANGES: 0.00 - 0.04 ng/ml NORMAL 0.05 - 0.50 ng/ml INDETERMINATE > 0.50 ng/ml CONSISTENT WITH AN M.I. Performed By: #### 3 5200, 86580, 60793, 91551 #### [facility] [address] [facility] [address], [facility] Troponin I.cardiac [Mass/Vol] 0.01 ng/mL Normal 0.00-0.04 The [facility] Comment on above: Order Comment: No: D o not add to previous draw Result Comment: REFE RENCE RANGES: 0.00 - 0.04 ng/ml NORMAL 0.05 - 0.50 ng/ml INDETERMINATE > 0.50 ng/ml CONSISTENT WITH AN M.I. Performed By: #### 3 5200 #### [facility] [address] [facility] [address], [facility] Troponin I.cardiac [Mass/Vol] 0.00 ng/mL Normal 0.00-0.04 The [facility] Comment on above: Order Comment: No: D o not add to previous draw Result Comment: REFE RENCE RANGES: 0.00 - 0.04 ng/ml NORMAL 0.05 - 0.50 ng/ml INDETERMINATE > 0.50 ng/ml CONSISTENT WITH AN M.I. Performed By: #### 3 5200, 21631, 08128, 78044 #### [facility] [address] TSH3 WITH REFLEX FT4on 03-09 TSH 3RD GENERATION 0.60 uIU/mL Normal 0.34-5.60 The [facility] Comment on above: Order Comment: No: D o not add to previous draw Performed By: #### 3 5200, 91203, 50978, 35145 #### [facility] [address] [facility] [address] URINALYSIS REFLEXon 03-09-20 Appearance (U) CLEAR Normal CLEAR The [facility] Comment on above: Order Comment: Check Chest Tube Position, S/P Chest tube DC'd Performed By: #### 3 0965 ####[facility] [facility] [address], [facility] Bilirubin Ql (U) Negative Normal NEGATIVE The [facility] Comment on above: Order Comment: Check Chest Tube Position, S/P Chest tube DC'd Performed By: #### 3 0965 ####[facility] [facility] [address], [facility] Color (U) STRAW Abnormal YELLOW The [facility] Comment on above: Order Comment: Check Chest Tube Position, S/P Chest tube DC'd Performed By: #### 3 0965 ####[facility] [facility] [address], [facility] EPIS OCC Normal FEW,OCC,NONE SEEN The [facility] Comment on above: Order Comment: Check Chest Tube Position, S/P Chest tube DC'd Performed By: #### 3 0965 ####[facility] Glucose Ql (U) Negative Normal NEGATIVE The [facility] Comment on above: Order Comment: Check Chest Tube Position, S/P Chest tube DC'd Performed By: #### 3 0965 ####[facility] [facility] [address], [facility] Hemoglobin Ql (U) MODERATE Abnormal NEGATIVE The [facility] Comment on above: Order Comment: Check Chest Tube Position, S/P Chest tube DC'd Performed By: #### 3 0965 ####[facility].[address] KETONE Negative Normal NEGATIVE The [facility] Comment on above: Order Comment: Check Chest Tube Position, S/P Chest tube DC'd Performed By: #### 3 0965 ####[facility] LEUK SHARMIN SMALL Abnormal NEGATIVE The [facility] Comment on above: Order Comment: Check Chest Tube Position, S/P Chest tube DC'd Performed By: #### 3 0965 ####[facility] MUCUS THREADS OCC Abnormal NONE SEEN The [facility] Comment on above: Order Comment: Check Chest Tube Position, S/P Chest tube DC'd Performed By: #### 3 0965 ####[facility].[address] Nitrite Ql (U) Negative Normal NEGATIVE The [facility] Comment on above: Order Comment: Check Chest Tube Position, S/P Chest tube DC'd Performed By: #### 3 0965 ####[facility] pH (U) 6.0 [pH] Normal 5.0-8.0 The [facility] Comment on above: Order Comment: Check Chest Tube Position, S/P Chest tube DC'd Performed By: #### 3 0965 ####[facility] Protein Ql (U) Negative Normal NEGATIVE The [facility] Comment on above: Order Comment: Check Chest Tube Position, S/P Chest tube DC'd Performed By: #### 3 0965 ####[facility] RBC 6-10 Abnormal NONE SEEN The [facility] Comment on above: Order Comment: Check Chest Tube Position, S/P Chest tube DC'd Performed By: #### 3 0965 ####[facility].[address] SPEC GRAV 1.015 Normal 1.015-1.020 The [facility] Comment on above: Order Comment: Check Chest Tube Position, S/P Chest tube DC'd Performed By: #### 3 0965 ####[facility] [facility].[address] WBC UA 11-20 Abnormal NONE SEEN The [facility] Comment on above: Order Comment: Check Chest Tube Position, S/P Chest tube DC'd Performed By: #### 3 0965 ####[facility].[address] CBC W MANUAL DIFFon 03-08-20 22 ATYPICAL LYMPH # Normal The [facility] Comment on above: Performed By: #### C VDTBH #### [facility] [address] [address] [address] Kayley Hatfield ATYPICAL LYMPH % Normal The [facility] Comment on above: Performed By: #### C VDTBH #### [facility] [address] [address] [address] Kayley Hatfield BAND # Normal 0.0-0.3 [facility] Comment on above: Performed By: #### C VDTBH #### [facility] [address] [address] [address] Kayley Hatfield BAND % Normal 0-5 [facility] Comment on above: Performed By: #### C VDTBH #### [facility] [address] [address] [address] Kayley Hatfield BASOM # 0.00 103/ul Normal 0.00-0.10 [facility] Comment on above: Performed By: #### C VDTBH #### [facility] [address] [place] [address] Dr. Kayley Hatfield BASOM % 0.0 % Critically low 0.2-2.0 [facility] Comment on above: Performed By: #### C VDTBH #### [facility] [address] [place] [address] Dr. Kayley Hatfield BLAST # Normal [facility] Comment on above: Performed By: #### C VDTBH #### [facility] [address] [place] [address] Dr. Kayley Hatfield BLAST % Normal [facility] Comment on above: Performed By: #### C VDTBH #### [facility] [address] [place] [address] Dr. Kayley Hatfield CORRECTED WBC Normal 4.0-11.0 [facility] Comment on above: Performed By: #### C VDTBH #### [facility] [address] [place] [address] Dr. Kayley Hatfield EOS # 0.14 103/ul Normal 0.00-0.70 [facility] Comment on above: Performed By: #### C VDTBH #### [facility] [address] [place] [address] Dr. Kayley Hatfield EOS% 1.0 % Normal 0.9-7.0 [facility] Comment on above: Performed By: #### C VDTBH #### [facility] [address] [place] [address] Dr. Kayley Hatfield HCT 27.5 % Critically low 36.0-48.0 [facility] Comment on above: Performed By: #### C VDTBH #### [facility] [address] [place] [address] Dr. Kayley Hatfield HGB 7.9 g/dl Critically low 12.0-16.0 [facility] Comment on above: Performed By: #### C VDTBH #### [facility] [address] [place] [address] Dr. Kayley Hatfield LYMPHM # 1.42 103/ul Normal 1.20-3.80 [facility] Comment on above: Performed By: #### C VDTBH #### [facility] [address] [address] [address] Kayley Hatfield LYMPHM% 10.0 % Critically low 20.5-60.0 [facility] Comment on above: Performed By: #### C VDTBH #### [facility] [address] [place] [address] Dr. Kayley Hatfield MCH 21.5 pg Critically low 26.7-34.0 [facility] Comment on above: Performed By: #### C VDTBH #### [facility] [address] [place] [address] Dr. Kayley Hatfield MCHC 28.7 g/dl Critically low 29.9-35.2 [facility] Comment on above: Performed By: #### C VDTBH #### [facility] [address] [place] [address] Dr. Kayley Hatfield MCV 74.7 fL Critically low 81.0-99.0 [facility] Comment on above: Performed By: #### C VDTBH #### [facility] [address] [place] [address] Dr. Kayley Hatfield METAMYELOCYTE # Normal The [facility] Comment on above: Performed By: #### C VDTBH #### [facility] [address] [place] [address] Dr. Kayley Hatfield METAMYELOCYTE % Normal The [facility] Comment on above: Performed By: #### C VDTBH #### [facility] [address] [place] [address] Dr. Kayley Hatfield MONOM# 2.13 103/ul Critically high 0.30-0.80 [facility] Comment on above: Performed By: #### C VDTBH #### [facility] [address] [address] [address] Kayley Hatfield MONOM% 15.0 % Critically high 1.7-12.0 [facility] Comment on above: Performed By: #### C VDTBH #### [facility] [address] [address] [address] Kayley Hatfield MPV 9.5 fL Normal 9.5-13.5 [facility] Comment on above: Performed By: #### C VDTBH #### [facility] [address] [address] [address] Kayley Hatfield MYELOCYTE # Normal [facility] Comment on above: Performed By: #### C VDTBH #### [facility] [address] [place] [address] Dr. Kayley Hatfield MYELOCYTE % Normal [facility] Comment on above: Performed By: #### C VDTBH #### [facility] [address] [address] [address] Kayley Hatfield NRBC Normal [facility] Comment on above: Performed By: #### C VDTBH #### [facility] [address] [place] [address] Dr. Kayley Hatfiled PLT 180 103/ul Normal 150-450 [facility] Comment on above: Performed By: #### C VDTBH #### [facility] [address] [address] [address] Kayley Hatfield RBC 3.68 106/ul Critically low 4.20-5.40 [facility] Comment on above: Performed By: #### C VDTBH #### [facility] [address] [address] [address] Kayley Hatfield RDW 27.5 % Critically high 11.0-15.0 [facility] Comment on above: Performed By: #### C VDTBH #### [facility] [address] [place] [address] Dr. Kayley Hatfield SEG # 10.51 103/ul Critically high 1.40-6.50 [facility] Comment on above: Performed By: #### C VDTBH #### [facility] [address] [place] [address] Dr. Kayley Hatfield SEG % 74.0 % Normal 43.0-75.0 [facility] Comment on above: Performed By: #### C VDTBH #### [facility] [address] [place] [address] Dr. Kayley Hatfield WBC 14.2 103/ul Critically high 4.0-11.0 [facility] Comment on above: Performed By: #### C VDTBH #### [facility] [address] [place] [address] Dr. Kayley Hatfield PRBC LEUKOREDUCEDon 03-08-20 ABO and Rh group Nom (Bld) Cross Match Result Compatible Unit Blood Type O Pos Unit Number [id number] Status Information Transfused Product ID Red Blood Cells Product Code [id number] Cross Match Result Compatible Blood Bank Notes CALLED TO VIC IN ICU @1657 Unit Blood Type O Pos Unit Number [id number] Status Information Transfused Product ID Red Blood Cells Product Code [id number] Normal [facility] Comment on above: Performed By: #### P RBC #### [facility] [address] [place] [address] Dr. Kayley Hatfield PROF CHEM 8 (BAS METB)on Anion gap [Moles/Vol] 10.1 mmol/L Normal [facility] Comment on above: Performed By: #### B LDCX1 #### [facility] [address] [place] [address] Dr. Kayley Hatfield Calcium [Mass/Vol] 8.8 mg/dL Normal 8.5-10.1 [facility] Comment on above: Performed By: #### B LDCX1 #### [facility] [address] [place] [address] Dr. Kayley Hatfield Chloride [Moles/Vol] 100 mmol/L Normal 98-107 [facility] Comment on above: Performed By: #### B LDCX1 #### [facility] [address] [place] [address] Dr. Kayley Hatfield CO2 [Moles/Vol] 34.2 mmol/L Critically high 21.0-32.0 [facility] Comment on above: Performed By: #### B LDCX1 #### [facility] [address] [place] [address] Dr. Kayley Hatfield EGFR-AF TRISTANIAN >60 Normal >=60 [facility] Comment on above: Performed By: #### B LDCX1 #### [facility] [address] [place] [address] Dr. Kayley Hatfield EGFR-NON AF TRISTANIAN >60 Normal >=60 [facility] Comment on above: Performed By: #### B LDCX1 #### [facility] [address] [place] [address] Dr. Kayley Hatfield Glucose [Mass/Vol] 107 mg/dL Critically high 74-106 T [facility] Comment on above: Performed By: #### B LDCX1 #### [facility] [address] [place] [address] Dr. Kayley Hatfield Potassium [Moles/Vol] 4.3 mmol/L Normal 3.5-5.1 [facility] Comment on above: Performed By: #### B LDCX1 #### [facility] [address] [place] [address] Dr. Kayley Hatfield Sodium [Moles/Vol] 140 mmol/L Normal 136-145 [facility] Comment on above: Performed By: #### B LDCX1 #### [facility] [address] [place] [address] Dr. Kayley Hatfield Urea nitrogen [Mass/Vol] 15.0 mg/dL Normal 7.0-18.0 [facility] Comment on above: Performed By: #### B LDCX1 #### [facility] [address] [place] [address] Dr. Kayley Hatfield Urea nitrogen/Creatinine [Mass ratio] 19.0 mg/mg Normal [facility] Comment on above: Performed By: #### B LDCX1 #### [facility] [address] [place] [address] Dr. Kayley Hatfield XR CHEST 1 Von [...] MIGUE REYNOSO Date: 2022-03-08 07:02 Normal [facility] CBC W MANUAL DIFFon 03-07-20 22 ACANTHOCYTES SLIGHT Normal [facility] Comment on above: Performed By: #### B LDCX1 #### [facility] [address] [place] [address] Dr. Kayley Hatfield ANISOCYTOSIS 2+ Normal [facility] Comment on above: Performed By: #### B LDCX1 #### [facility] [address] [place] [address] Dr. Kayley Hatfield ATYPICAL LYMPH # Normal The [facility] Comment on above: Performed By: #### B LDCX1 #### [facility] [address] [place] [address] Dr. Kayley Hatfield ATYPICAL LYMPH % Normal [facility] Comment on above: Performed By: #### B LDCX1 #### [facility] [address] [place] [address] Dr. Kayley Hatfield BAND # 0.0 103/ul Normal 0.0-0.3 [facility] Comment on above: Performed By: #### B LDCX1 #### [facility] [address] [place] [address] Dr. Kayley Hatfield BAND % 0 % Normal 0-5 [facility] Comment on above: Performed By: #### B LDCX1 #### [facility] [address] [place] [address] Dr. Kayley Hatfield BASOM # 0.00 103/ul Normal 0.00-0.10 [facility] Comment on above: Performed By: #### B LDCX1 #### [facility] [address] [place] [address] Dr. Kayley Hatfield BASOM % 0.0 % Critically low 0.2-2.0 [facility] Comment on above: Performed By: #### B LDCX1 #### [facility] [address] [place] [address] Dr. Kayley Hatfield BLAST # Normal [facility] Comment on above: Performed By: #### B LDCX1 #### [facility] [address] [place] [address] Dr. Kayley Hatfield BLAST % Normal [facility] Comment on above: Performed By: #### B LDCX1 #### [facility] [address] [place] [address] Dr. Kayley Hatfield ANDREE CELLS SLIGHT Normal [facility] Comment on above: Performed By: #### B LDCX1 #### [facility] [address] [place] [address] Dr. Kayley Hatfield CORRECTED WBC Normal 4.0-11.0 [facility] Comment on above: Performed By: #### B LDCX1 #### [facility] [address] [place] [address] Dr. Kayley Hatfield EOS # 0.16 103/ul Normal 0.00-0.70 [facility] Comment on above: Performed By: #### B LDCX1 #### [facility] [address] [place] [address] Dr. Kayley Hatfield EOS% 1.0 % Normal 0.9-7.0 [facility] Comment on above: Performed By: #### B [email or web address] #### [facility] [address] [place] [address] Dr. Kayley Hatfield GIANT PLATELETS SEEN Normal The [facility] Comment on above: Performed By: #### B [email or web address] #### [facility] [address] [place] [address] Dr. Kayley Hatfield HCT 31.1 % Critically low 36.0-48.0 [facility] Comment on above: Performed By: #### B [email or web address] #### [facility] [address] [address] [address] Kayley [place] HGB 9.1 g/dl Critically low 12.0-16.0 [facility] Comment on above: Performed By: #### B [id number] #### [facility] [address] [address] [address] Kayley [place] HYPOCHROMASIA 1+ Normal [facility] Comment on above: Performed By: #### B [id number] #### [facility] [address] [address] [address] Kayley [place] LYMPHM # 2.09 103/ul Normal 1.20-3.80 [facility] Comment on above: Performed By: #### B [id number] #### [facility] [address] [address] [address] Kayley [place] LYMPHM% 13.0 % Critically low 20.5-60.0 [facility] Comment on above: Performed By: #### B [id number] #### [facility] [address] [address] [address] Kayley [place]field MCH 21.4 pg Critically low 26.7-34.0 [facility] Comment on above: Performed By: #### B [id number] #### [facility] [address] [address] [address] Kayley [place]field MCHC 29.3 g/dl Critically low 29.9-35.2 [facility] Comment on above: Performed By: #### B [id number] #### [facility] [address] [address] [address] Kayley [place]field MCV 73.0 fL Critically low 81.0-99.0 [facility] Comment on above: Performed By: #### B [id number] #### [facility] [address] [address] [address] Kayley [place]field METAMYELOCYTE # Normal [facility] Comment on above: Performed By: #### B [id number] #### [facility] [address] [address] [address] Kayley [place] METAMYELOCYTE % Normal [facility] Comment on above: Performed By: #### B [id number] #### [facility] [address] [place] [address] Dr. Kayley Hatfield MICROCYTOSIS SLIGHT Normal [facility] Comment on above: Performed By: #### B [id number] #### [facility] [address] [address] [address] Kayley [place]field MONOM# 0.48 103/ul Normal 0.30-0.80 [facility] Comment on above: Performed By: #### B [id number] #### [facility] [address] [place] [address] Dr. Kayley Hatfield MONOM% 3.0 % Normal 1.7-12.0 [facility] Comment on above: Performed By: #### B [id number] #### [facility] [address] [place] [address] Dr. Kayley Hatfield MPV 8.9 fL Critically low 9.5-13.5 [facility] Comment on above: Performed By: #### B [id number] #### [facility] [address] [place] [address] Dr. Kayley [place]field MYELOCYTE # Normal [facility] Comment on above: Performed By: #### B [id number] #### [facility] [address] [place] [address] Dr. Kayley [place]field MYELOCYTE % Normal [facility] Comment on above: Performed By: #### B [id number] #### [facility] [address] [place] [address] Dr. Kayley Hatfield NRBC Normal [facility] Comment on above: Performed By: #### B [id number] #### [facility] [address] [place] [address] Dr. Kayley Hatfield PLT 243 103/ul Normal 150-450 [facility] Comment on above: Performed By: #### B [id number] #### [facility] [address] [place] [address] Dr. Kayley Hatfield RBC 4.26 106/ul Normal 4.20-5.40 [facility] Comment on above: Performed By: #### B [id number] #### [facility] [address] [address] [address] Kayley Hatfield RDW 27.1 % Critically high 11.0-15.0 [facility] Comment on above: Performed By: #### B [id number] #### [facility] [address] [address] [address] Kayley Hatfield SEG # 13.36 103/ul Critically high 1.40-6.50 [facility] Comment on above: Performed By: #### B [id number] #### [facility] [address] [address] [address] Kayley Hatfield SEG % 83.0 % Critically high 43.0-75.0 [facility] Comment on above: Performed By: #### B [id number] #### [facility] [address] [address] [address] Kayley [place]field WBC 16.1 103/ul Critically high 4.0-11.0 [facility] Comment on above: Performed By: #### B [id number] #### [facility] [address] [address] [address] CHEST WO CONon [...] ASAEL MALDONADO Date: 2022-03-07 09:42 Normal [facility] HEMOGLOBIN AND HEMATOCRITon 03-07-2022 Hematocrit (Bld) [Volume fraction] 31.8 % Critically low 36.0-48.0 [facility] Comment on above: Performed By: #### H GBHCT #### [facility] [address] [place] [address] Dr. Kayley Hatfield Hemoglobin (Bld) [Mass/Vol] 9.5 g/dL Critically low 12.0-16.0 [facility] Comment on above: Performed By: #### H GBHCT #### [facility] [address] [address] [address] Kayley Hatfield RETICULOCYTEon 03-07-2022 RETIC 1.92 % Normal 0.60-3.10 [facility] Comment on above: Performed By: #### O BSCRN #### [facility] [address] [place] [address] Dr. Kayley Hatfield XR CHEST 1 Von [...] ASAEL MALDONADO Date: 2022-03-07 12:54 Normal [facility] XR CHEST 1 V EXAM: XR [...] ASAEL MALDONADO Date: 2022-03-07 07:10 Normal [facility] BNPon 03-06-2022 Natriuretic peptide B (Bld) [Mass/Vol] 441.0 pg/mL Normal <=900.0 [facility] Comment on above: Performed By: #### H GBHCT #### [facility] [address] [place] [address] Dr. Kayley Hatfield CBC AUTO DIFFon 03-06-2022 BASO # 0.1 103/ul Normal 0.0-0.1 [facility] Comment on above: Performed By: #### O BSCRN #### [facility] [address] [place] [address] Dr. Kayley Hatfield Basophils/100 WBC (Bld) 0.7 % Normal 0.2-2.0 [facility] Comment on above: Performed By: #### O BSCRN #### [facility] [address] [address] [address] Kayley Hatfield EO # 0.1 103/ul Normal 0.0-0.7 [facility] Comment on above: Performed By: #### O BSCRN #### [facility] [address] [address] [address] Kayley Hatfield Eosinophils/100 WBC (Bld) 0.7 % Critically low 0.9-7.0 [facility] Comment on above: Performed By: #### O BSCRN #### [facility] [address] [place] [address] Dr. Kayley Hatfield Erythrocyte distribution width (RBC) [Ratio] 20.0 % Critically high 11.0-15.0 [facility] Comment on above: Performed By: #### O BSCRN #### [facility] [address] [place] [address] Dr. Kayley Hatfield Hematocrit (Bld) [Volume fraction] 20.1 % Critically low 36.0-48.0 [facility] Comment on above: Performed By: #### O BSCRN #### [facility] [address] [place] [address] Dr. Kayley Hatfield Hemoglobin (Bld) [Mass/Vol] 4.9 g/dL Critically low 12.0-16.0 [facility] Comment on above: Performed By: #### O BSCRN #### [facility] [address] [place] [address] Dr. Kayley Hatfield IG # 0.12 10e3/ul Critically high 0.00-0.03 [facility] Comment on above: Performed By: #### O BSCRN #### [facility] [address] [place] [address] Dr. Kayley Hatfield IG % 0.8 % Critically high 0.0-0.5 [facility] Comment on above: Performed By: #### O BSCRN #### [facility] [address] [place] [address] Dr. Kayley Hatfield LYMPH # 1.0 103/ul Critically low 1.2-3.8 [facility] Comment on above: Performed By: #### O BSCRN #### [facility] [address] [place] [address] Dr. Kayley Hatfield Lymphocytes/100 WBC (Bld) 6.5 % Critically low 20.5-60.0 [facility] Comment on above: Performed By: #### O BSCRN #### [facility] [address] [place] [address] Dr. Kayley Hatfield MANUAL DIFF REQ NO Normal [facility] Comment on above: Performed By: #### O BSCRN #### [facility] [address] [place] [address] Dr. Kayley Hatfield MCH (RBC) [Entitic mass] 15.2 pg Critically low 26.7-34.0 [facility] Comment on above: Performed By: #### O BSCRN #### [facility] [address] [place] [address] Dr. Kayley Hatfield MCHC (RBC) [Mass/Vol] 24.4 g/dL Critically low 29.9-35.2 [facility] Comment on above: Performed By: #### O BSCRN #### [facility] [address] [place] [address] Dr. Kayley Hatfield MCV (RBC) [Entitic vol] 62.2 fL Critically low 81.0-99.0 [facility] Comment on above: Performed By: #### O BSCRN #### [facility] [address] [place] [address] Dr. Kayley Hatfield MONO # 0.5 103/ul Normal 0.3-0.8 [facility] Comment on above: Performed By: #### O BSCRN #### [facility] [address] [place] [address] Dr. Kayley Hatfield Monocytes/100 WBC (Bld) 3.5 % Normal 1.7-12.0 [facility] Comment on above: Performed By: #### O BSCRN #### [facility] [address] [place] [address] Dr. Kayley Hatfield NEUT # 13.2 103/ul Critically high 1.4-6.5 [facility] Comment on above: Performed By: #### O BSCRN #### [facility] [address] [place] [address] Dr. Kayley Hatfield Neutrophils/100 WBC (Bld) 87.8 % Critically high 43.0-75.0 [facility] Comment on above: Performed By: #### O BSCRN #### [facility] [address] [place] [address] Dr. Kayley Hatfield Platelet mean volume (Bld) [Entitic vol] 9.1 fL Critically low 9.5-13.5 [facility] Comment on above: Performed By: #### O BSCRN #### [facility] [address] [place] [address] Dr. Kayley Hatfield PLT 384 103/ul Normal 150-450 [facility] Comment on above: Performed By: #### O BSCRN #### [facility] [address] [place] [address] Dr. Kayley Hatfield RBC 3.23 106/ul Critically low 4.20-5.40 [facility] Comment on above: Performed By: #### O BSCRN #### [facility] [address] [place] [address] Dr. Kayley Hatfield WBC 15.1 103/ul Critically high 4.0-11.0 [facility] Comment on above: Performed By: #### O BSCRN #### [facility] [address] [place] [address] Dr. Kayley Hatfield CULTURE BLOODon 03-06-2022 Microscopic examination of blood, culture Culture Observations: NO GROWTH AT 5 DAYS. Normal [facility] Comment on above: Performed By: #### C VDTBH #### [facility] [address] [place] [address] Dr. Kayley Hatfield Performed By: #### B [id number] #### [facility] [address] [place] [address] Dr. Kayley [place] [facility] SARS-CoV-2 (COVID-19) RNA ELBA+probe Ql (Unsp spec) Not detected Normal NOT DETECTED [facility] Comment on above: Result Comment: When [...] for this test is supported by the [place] of [employer] and Human Service's declaration that [...] used). Performed By: #### C VDTBH #### [facility] [address] [place] [address] Dr. Kayley Hatfield ER URINE PROFILEon 2 Bilirubin Ql (U) Negative Normal NEGATIVE [facility] Comment on above: Performed By: #### P RBC #### [facility] [address] [place] [address] Dr. Kayley Hatfield Clarity (U) CLEAR Normal CLEAR [facility] Comment on above: Performed By: #### P RBC #### [facility] [address] [place] [address] Dr. Kayley Hatfield Color (U) LT. YELLOW Normal YELLOW [facility] Comment on above: Performed By: #### P RBC #### [facility] [address] [place] [address] Dr. Kayley TOURED A micrscopic examination will be performed if indicated. Normal [facility] Comment on above: Performed By: #### P RBC #### [facility] [address] [place] [address] Dr. Kayley Hatfield Glucose Ql (U) Negative Normal NEGATIVE [facility] Comment on above: Performed By: #### P RBC #### [facility] [address] [place] [address] Dr. Kayley Hatfield Hemoglobin Ql (U) Negative Normal NEGATIVE [facility] Comment on above: Performed By: #### P RBC #### [facility] [address] [place] [address] Dr. Kayley Hatfield Ketones Ql (U) Negative Normal NEGATIVE [facility] Comment on above: Performed By: #### P RBC #### [facility] [address] [place] [address] Dr. Kayley Hatfield LEUKOCYTES Negative Normal NEGATIVE [facility] Comment on above: Performed By: #### P RBC #### [facility] [address] [place] [address] Dr. Kayley Hatfield Nitrite Ql (U) Negative Normal NEGATIVE [facility] Comment on above: Performed By: #### P RBC #### [facility] [address] [place] [address] Dr. Kayley Hatfield pH (U) 6.0 [pH] Normal 5-9 [facility] Comment on above: Performed By: #### P RBC #### [facility] [address] [place] [address] Dr. Kayley Hatfield SPEC GRAVITY 1.010 Normal 1.005-<=1.025 [facility] Comment on above: Performed By: #### P RBC #### [facility] [address] [place] [address] Dr. Kayley Hatfield UA PROTEIN Negative Normal NEGATIVE/ TRACE [facility] Comment on above: Performed By: #### P RBC #### [facility] [address] [place] [address] Dr. Kayley Hatfield UR MICRO IND NOT INDICATED Normal [facility] Comment on above: Performed By: #### P RBC #### [facility] [address] [place] [address] Dr. Kayley Hatfield Urobilinogen Qn (U) 0.2 {Lu'U}/dL Normal 0.2 - 1. 0 [facility] Comment on above: Performed By: #### P RBC #### [facility] [address] [place] [address] Dr. Kayley Hatfield FERRITINon 03-06-2022 Ferritin [Mass/Vol] 4.0 ng/mL Critically low 8.0-252.0 [facility] Comment on above: Performed By: #### O BSCRN #### [facility] [address] [place] [address] Dr. Kayley Hatfield IRON AND TIBCon 03-06-2022 % SATURATION 2.3 % Normal [facility] Comment on above: Performed By: #### C VDTBH #### [facility] [address] [place] [address] Dr. Kayley Hatfiled Iron [Mass/Vol] 12.0 ug/dL Critically low 50.0-170.0 [facility] Comment on above: Performed By: #### C VDTBH #### [facility] [address] [place] [address] Dr. Kayley Hatfield TIBC DIRECT 532.0 ug/dL Critically high 250.0-450.0 [facility] Comment on above: Performed By: #### C VDTBH #### [facility] [address] [place] [address] Dr. Kayley Hatfield OCC BLD IMMUNO SCREENon 02-07 OCCULT BLOOD Negative Normal NEGATIVE [facility] Comment on above: Performed By: #### O BSCRN #### [facility] [address] [place] [address] Dr. Kayley Hatfield PROF 14(COMP METB)on 022 Albumin [Mass/Vol] 3.6 g/dL Normal 3.4-5.0 [facility] Comment on above: Performed By: #### H GBHCT #### [facility] [address] [place] [address] Dr. Kayley Hatfield Albumin/Globulin [Mass ratio] 1.2 {ratio} Normal [facility] Comment on above: Performed By: #### H GBHCT #### [facility] [address] [place] [address] Dr. Kayley Hatfield ALP [Catalytic activity/Vol] 71 U/L Normal 46-116 [facility] Comment on above: Performed By: #### H GBHCT #### [facility] [address] [place] [address] Dr. Kayley Hatfield ALT [Catalytic activity/Vol] 20 U/L Normal 14-59 [facility] Comment on above: Performed By: #### H GBHCT #### [facility] [address] [place] [address] Dr. Kayley Hatfield Anion gap [Moles/Vol] 9.8 mmol/L Normal [facility] Comment on above: Performed By: #### H GBHCT #### [facility] [address] [address] [address] Kayley Hatfiedl AST [Catalytic activity/Vol] 12 U/L Critically low 15-37 [facility] Comment on above: Performed By: #### H GBHCT #### [facility] [address] [address] [address] Kayley Hatfield Bilirubin [Mass/Vol] 0.4 mg/dL Normal 0.2-1.0 [facility] Comment on above: Performed By: #### H GBHCT #### [facility] [address] [address] [address] Kayley Hatfield Calcium [Mass/Vol] 9.0 mg/dL Normal 8.5-10.1 [facility] Comment on above: Performed By: #### H GBHCT #### [facility] [address] [place] [address] Dr. Kayley Hatfield Chloride [Moles/Vol] 99 mmol/L Normal 98-107 [facility] Comment on above: Performed By: #### H GBHCT #### [facility] [address] [place] [address] Dr. Kayley Hatfield CO2 [Moles/Vol] 31.5 mmol/L Normal 21.0-32.0 [facility] Comment on above: Performed By: #### H GBHCT #### [facility] [address] [place] [address] Dr. Kayley Hatfield Creatinine [Mass/Vol] 0.89 mg/dL Normal 0.55-1.02 [facility] Comment on above: Performed By: #### H GBHCT #### [facility] [address] [place] [address] Dr. Kayley Hatfield EGFR-AF TRISTANIAN >60 Normal >=60 [facility] Comment on above: Performed By: #### H GBHCT #### [facility] [address] [place] [address] Dr. Kayley Hatfield EGFR-NON AF TRISTANIAN >60 Normal >=60 [facility] Comment on above: Performed By: #### H GBHCT #### [facility] [address] [address] [address] Kayley Hatfield Globulin (S) [Mass/Vol] 3.1 g/dL Normal [facility] Comment on above: Performed By: #### H GBHCT #### [facility] [address] [address] [address] Kayley Hatfield Glucose [Mass/Vol] 174 mg/dL Critically high 74-106 [facility] Comment on above: Performed By: #### H GBHCT #### [facility] [address] [place] [address] Dr. Kayley Hatfield Potassium [Moles/Vol] 4.3 mmol/L Normal 3.5-5.1 [facility] Comment on above: Performed By: #### H GBHCT #### [facility] [address] [place] [address] Dr. Kayley Hatfield Protein [Mass/Vol] 6.7 g/dL Normal 6.4-8.2 [facility] Comment on above: Performed By: #### H GBHCT #### [facility] [address] [place] [address] Dr. Kayley Hatfield Sodium [Moles/Vol] 136 mmol/L Normal 136-145 [facility] Comment on above: Performed By: #### H GBHCT #### [facility] [address] [place] [address] Dr. Kayley Hatfield Urea nitrogen [Mass/Vol] 17.0 mg/dL Normal 7.0-18.0 [facility] Comment on above: Performed By: #### H GBHCT #### [facility] [address] [place] [address] Dr. Kayley Hatfield Urea nitrogen/Creatinine [Mass ratio] 19.1 mg/mg Normal [facility] Comment on above: Performed By: #### H GBHCT #### [facility] [address] [place] [address] Dr. Kayley Hatfield TROPONIN, HIGH SENSITIVITYon 03-06-2022 HSTROP 7.0 pg/mL Normal 4.0-51.3 [facility] Comment on above: Result Comment: CUT- OFF POINTS HAVE BEEN ESTABLISHED BASED ON THE FOURTH UNIVERSAL DEFINITIONS OF MYOCARDIAL INFARCTION. THE UPPER REFERENCE LIMIT (URL) OF TROPONIN, DEFINED THE 99TH PERCENTILE OF cTnI DISTRIBUTION IN A REFERENCE POPULATION, HAS BEEN CONFIRMED THE DECISION THRESHOLD FOR IA DIAGNOSIS. Performed By: #### H GBHCT #### [facility] [address] [address] [address] Kayley Hatfield TYPE AND SCREENon 03-06-2022 TYPE AND SCREEN Negative Normal [facility] Comment on above: Performed By: #### C VDTBH #### [facility] [address] [address] [address] Kayley Hatfield XR CHEST 1 Von [...] MIGUE REYNOSO Date: 2022-03-06 16:10 Normal [facility] XR CHEST 1 V EXAMINATION: XR [...] by: MIGUE REYNOSO Date: 2022-03-06 14:39 Normal [facility] XR DEXA BONE DENSITYon 12-22 XR [...] High Fracture Risk Electronically authenticated by: MIGUE RYENOSO Date: 2021-12-22 17:05 Normal [facility] CARDIAC ABDIAZIZ ADMITon 022 CK [Catalytic activity/Vol] 21 U/L Critically low 26-192 [facility] Comment on above: Performed By: #### B [id number] #### [facility] [address] [place] [address] Dr. Kayley Hatfield CK.MB [Mass/Vol] 1.00 ng/mL Normal <=3.60 [facility] Comment on above: Performed By: #### B [id number] #### [facility] [address] [address] [address] Kayley Hatfield HSTROP 11.6 pg/mL Normal 4.0-51.3 [facility] Comment on above: Result Comment: CUT- OFF POINTS HAVE BEEN ESTABLISHED BASED ON THE FOURTH UNIVERSAL DEFINITIONS OF MYOCARDIAL INFARCTION. THE UPPER REFERENCE LIMIT (URL) OF TROPONIN, DEFINED THE 99TH PERCENTILE OF cTnI DISTRIBUTION IN A REFERENCE POPULATION, HAS BEEN CONFIRMED THE DECISION THRESHOLD FOR IA DIAGNOSIS. Performed By: #### B [id number] #### [facility] [address] [address] [address] Kayley Hatfield ROD 48 ng/mL Normal 9-82 [facility] Comment on above: Performed By: #### B [id number] #### [facility] [address] [place] [address] Dr. Kayley Hatfield CBC AUTO DIFFon 12-14-2021 BASO # 0.1 103/ul Normal 0.0-0.1 [facility] Comment on above: Performed By: #### P RBC #### [facility] [address] [place] [address] Dr. Kayley Hatfield Basophils/100 WBC (Bld) 0.9 % Normal 0.2-2.0 [facility] Comment on above: Performed By: #### P RBC #### [facility] [address] [place] [address] Dr. Kayley Hatfield EO # 0.1 103/ul Normal 0.0-0.7 [facility] Comment on above: Performed By: #### P RBC #### [facility] [address] [place] [address] Dr. Kayley Hatfield Eosinophils/100 WBC (Bld) 0.5 % Critically low 0.9-7.0 [facility] Comment on above: Performed By: #### P RBC #### [facility] [address] [place] [address] Dr. Kayley Hatfield Erythrocyte distribution width (RBC) [Ratio] 15.4 % Critically high 11.0-15.0 [facility] Comment on above: Performed By: #### P RBC #### [facility] [address] [place] [address] Dr. Kayley Hatfield Hematocrit (Bld) [Volume fraction] 29.3 % Critically low 36.0-48.0 [facility] Comment on above: Performed By: #### P RBC #### [facility] [address] [place] [address] Dr. Kayley Hatfield Hemoglobin (Bld) [Mass/Vol] 8.3 g/dL Critically low 12.0-16.0 [facility] Comment on above: Performed By: #### P RBC #### [facility] [address] [place] [address] Dr. Kayley Hatfield IG # 0.05 10e3/ul Critically high 0.00-0.03 [facility] Comment on above: Performed By: #### P RBC #### [facility] [address] [address] [address] Kayley Hatfield IG % 0.4 % Normal 0.0-0.5 [facility] Comment on above: Performed By: #### P RBC #### [facility] [address] [address] [address] Kayley Hatfield LYMPH # 1.2 103/ul Normal 1.2-3.8 [facility] Comment on above: Performed By: #### P RBC #### [facility] [address] [place] [address] Dr. Kayley Hatfield Lymphocytes/100 WBC (Bld) 10.6 % Critically low 20.5-60.0 [facility] Comment on above: Performed By: #### P RBC #### [facility] [address] [place] [address] Dr. Kayley Hatfield MANUAL DIFF REQ NO Normal [facility] Comment on above: Performed By: #### P RBC #### [facility] [address] [place] [address] Dr. Kayley Hatfield MCH (RBC) [Entitic mass] 21.4 pg Critically low 26.7-34.0 [facility] Comment on above: Performed By: #### P RBC #### [facility] [address] [place] [address] Dr. Kayley Hatfield MCHC (RBC) [Mass/Vol] 28.3 g/dL Critically low 29.9-35.2 [facility] Comment on above: Performed By: #### P RBC #### [facility] [address] [place] [address] Dr. Kayley Hatfield MCV (RBC) [Entitic vol] 75.5 fL Critically low 81.0-99.0 [facility] Comment on above: Performed By: #### P RBC #### [facility] [address] [place] [address] Dr. Kayley Hatfield MONO # 0.9 103/ul Critically high 0.3-0.8 [facility] Comment on above: Performed By: #### P RBC #### [facility] [address] [place] [address] Dr. Kayley Hatfield Monocytes/100 WBC (Bld) 7.6 % Normal 1.7-12.0 [facility] Comment on above: Performed By: #### P RBC #### [facility] [address] [place] [address] Dr. Kayley Hatfield NEUT # 9.2 103/ul Critically high 1.4-6.5 [facility] Comment on above: Performed By: #### P RBC #### [facility] [address] [place] [address] Dr. Kayley Hatfield Neutrophils/100 WBC (Bld) 80.0 % Critically high 43.0-75.0 [facility] Comment on above: Performed By: #### P RBC #### [facility] [address] [place] [address] Dr. Kayley Hatfield Platelet mean volume (Bld) [Entitic vol] 9.3 fL Critically low 9.5-13.5 [facility] Comment on above: Performed By: #### P RBC #### [facility] [address] [place] [address] Dr. Kayley Hatfield PLT 498 103/ul Critically high 150-450 [facility] Comment on above: Performed By: #### P RBC #### [facility] [address] [place] [address] Dr. Kayley Hatfield RBC 3.88 106/ul Critically low 4.20-5.40 [facility] Comment on above: Performed By: #### P RBC #### [facility] [address] [address] [address] Kayley Hatfield WBC 11.5 103/ul Critically high 4.0-11.0 [facility] Comment on above: Performed By: #### P RBC #### [facility] [address] [place] [address] Dr. Kayley Hatfield ER URINE PROFILEon 2 Bilirubin Ql (U) Negative Normal NEGATIVE [facility] Comment on above: Performed By: #### H GBHCT #### [facility] [address] [address] [address] Kayley Hatfield Clarity (U) CLEAR Normal CLEAR [facility] Comment on above: Performed By: #### H GBHCT #### [facility] [address] [place] [address] Dr. Kayley Hatfield Color (U) LT. YELLOW Normal YELLOW [facility] Comment on above: Performed By: #### H GBHCT #### [facility] [address] [address] [address] Kayley Hatfield ERUAHD A micrscopic examination will be performed if indicated. Normal [facility] Comment on above: Performed By: #### H GBHCT #### [facility] [address] [place] [address] Dr. Kayley Hatfield Glucose Ql (U) Negative Normal NEGATIVE [facility] Comment on above: Performed By: #### H GBHCT #### [facility] [address] [place] [address] Dr. Kayley Hatfield Hemoglobin Ql (U) TRACE-INTACT Abnormal NEGATIVE [facility] Comment on above: Performed By: #### H GBHCT #### [facility] [address] [place] [address] Dr. Kayley Hatfield Ketones Ql (U) Negative Normal NEGATIVE [facility] Comment on above: Performed By: #### H GBHCT #### [facility] [address] [place] [address] Dr. Kayley Hatfield LEUKOCYTES Negative Normal NEGATIVE [facility] Comment on above: Performed By: #### H GBHCT #### [facility] [address] [place] [address] Dr. Kayley Htafield Nitrite Ql (U) Negative Normal NEGATIVE [facility] Comment on above: Performed By: #### H GBHCT #### [facility] [address] [place] [address] Dr. Kayley Hatfield pH (U) 6.5 [pH] Normal 5-9 [facility] Comment on above: Performed By: #### H GBHCT #### [facility] [address] [address] [address] Kayley Hatfield SPEC GRAVITY 1.015 Normal 1.005-<=1.025 [facility] Comment on above: Performed By: #### H GBHCT #### [facility] [address] [address] [address] Kayley Hatfield UA PROTEIN Negative Normal NEGATIVE/ TRACE [facility] Comment on above: Performed By: #### H GBHCT #### [facility] [address] [address] [address] Kayley Hatfield UR MICRO IND INDICATED Normal [facility] Comment on above: Performed By: #### H GBHCT #### [facility] [address] [place] [address] Dr. Kayley Hatfield Urobilinogen Qn (U) 0.2 {Lu'U}/dL Normal 0.2 - 1. 0 [facility] Comment on above: Performed By: #### H GBHCT #### [facility] [address] [place] [address] Dr. Kayley Hatfield PROF 14(COMP METB)on 022 Albumin [Mass/Vol] 3.2 g/dL Critically low 3.4-5.0 [facility] Comment on above: Performed By: #### B [id number] #### [facility] [address] [place] [address] Dr. Kayley Hatfield Albumin/Globulin [Mass ratio] 0.8 {ratio} Normal [facility] Comment on above: Performed By: #### B [id number] #### [facility] [address] [place] [address] Dr. Kayley Hatfield ALP [Catalytic activity/Vol] 72 U/L Normal 46-116 [facility] Comment on above: Performed By: #### B [id number] #### [facility] [address] [place] [address] Dr. Kayley Hatfield ALT [Catalytic activity/Vol] 24 U/L Normal 14-59 [facility] Comment on above: Performed By: #### B [id number] #### [facility] [address] [address] [address] Kayley Hatfield Anion gap [Moles/Vol] 13.0 mmol/L Normal [facility] Comment on above: Performed By: #### B [id number] #### [facility] [address] [address] [address] Kayley Hatfield AST [Catalytic activity/Vol] 18 U/L Normal 15-37 [facility] Comment on above: Performed By: #### B [id number] #### [facility] [address] [address] [address] Kayley Hatfield Bilirubin [Mass/Vol] 0.3 mg/dL Normal 0.2-1.0 [facility] Comment on above: Performed By: #### B [id number] #### [facility] [address] [address] [address] Kayley Hatfield Calcium [Mass/Vol] 9.9 mg/dL Normal 8.5-10.1 [facility] Comment on above: Performed By: #### B [id number] #### [facility] [address] [address] [address] Kayley Hatfield Chloride [Moles/Vol] 98 mmol/L Normal 98-107 [facility] Comment on above: Performed By: #### B [id number] #### [facility] [address] [address] [address] Kayley Hatfield CO2 [Moles/Vol] 29.8 mmol/L Normal 21.0-32.0 [facility] Comment on above: Performed By: #### B [id number] #### [facility] [address] [address] [address] Kayley Hatfield Creatinine [Mass/Vol] 1.23 mg/dL Critically high 0.55-1.02 [facility] Comment on above: Performed By: #### B [id number] #### [facility] [address] [address] [address] Kayley Hatfield EGFR-AF TRISTANIAN 53 mL/min/1.73m2 Critically low >=60 [facility] Comment on above: Performed By: #### B [id number] #### [facility] [address] [address] [address] Kayley Hatfield EGFR-NON AF TRISTANIAN 44 mL/min/1.73m2 Critically low >=60 [facility] Comment on above: Performed By: #### B [id number] #### [facility] [address] [address] [address] Kayley Hatfield Globulin (S) [Mass/Vol] 3.9 g/dL Normal [facility] Comment on above: Performed By: #### B [id number] #### [facility] [address] [address] [address] Kayley Hatfield Glucose [Mass/Vol] 160 mg/dL Critically high 74-106 [facility] Comment on above: Performed By: #### B [id number] #### [facility] [address] [address] [address] Kayley Hatfield Potassium [Moles/Vol] 3.8 mmol/L Normal 3.5-5.1 [facility] Comment on above: Performed By: #### B [id number] #### [facility] [address] [address] [address] Kayley Hatfield Protein [Mass/Vol] 7.1 g/dL Normal 6.4-8.2 [facility] Comment on above: Performed By: #### B [id number] #### [facility] [address] [address] [address] Kayley Hatfield Sodium [Moles/Vol] 137 mmol/L Normal 136-145 [facility] Comment on above: Performed By: #### B [id number] #### [facility] [address] [address] [address] Kayley Hatfield Urea nitrogen [Mass/Vol] 20.0 mg/dL Critically high 7.0-18.0 [facility] Comment on above: Performed By: #### B [id number] #### [facility] [address] [address] [address] Kayley Hatfield Urea nitrogen/Creatinine [Mass ratio] 16.3 mg/mg Normal [facility] Comment on above: Performed By: #### B [id number] #### [facility] [address] [place] [address] Dr. Kayley Hatfield TROPONIN, HIGH SENSITIVITYon 12-14-2021 HSTROP 11.3 pg/mL Normal 4.0-51.3 [facility] Comment on above: Result Comment: CUT- OFF POINTS HAVE BEEN ESTABLISHED BASED ON THE FOURTH UNIVERSAL DEFINITIONS OF MYOCARDIAL INFARCTION. THE UPPER REFERENCE LIMIT (URL) OF TROPONIN, DEFINED THE 99TH PERCENTILE OF cTnI DISTRIBUTION IN A REFERENCE POPULATION, HAS BEEN CONFIRMED THE DECISION THRESHOLD FOR IA DIAGNOSIS. Performed By: #### P RTELEC #### [facility] [address] [place] [address] Dr. Kayley Hatfield URINE MICROSCOPIC ONLYon BACTERIA NONE SEEN Normal NONE SEEN [facility] Comment on above: Performed By: #### H GBHCT #### [facility] [address] [place] [address] Dr. Kayley Hatfield Bacteria identified Cx Nom (U) NOT INDICATED Normal [facility] Comment on above: Performed By: #### H GBHCT #### [facility] [address] [place] [address] Dr. Kayley Hatfield CAST SEEN Abnormal NONE SEEN [facility] Comment on above: Performed By: #### H GBHCT #### [facility] [address] [place] [address] Dr. Kayley Hatfield Crystals LM Nom (Urine sed) NONE SEEN Normal NONE SEEN [facility] Comment on above: Performed By: #### H GBHCT #### [facility] [address] [place] [address] Dr. Kayley Hatfield Epithelial cells LM Ql (Urine sed) FEW Abnormal NONE SEEN /RARE [facility] Comment on above: Performed By: #### H GBHCT #### [facility] [address] [place] [address] Dr. Kayley Hatfield HYALINE CAST RARE Normal [facility] Comment on above: Performed By: #### H GBHCT #### [facility] [address] [place] [address] Dr. Kayley Hatfield MUCOUS NONE SEEN Normal NONE SEEN [facility] Comment on above: Performed By: #### H GBHCT #### [facility] [address] [place] [address] Dr. Kayley Hatfield RBC 0-2 Normal 0-2 [facility] Comment on above: Performed By: #### H GBHCT #### [facility] [address] [place] [address] Dr. Kayley Hatfield WBC 0-2 Abnormal NONE SEEN [facility] Comment on above: Performed By: #### H GBHCT #### [facility] [address] [place] [address] Dr. Kayley Hatfield XR CHEST 1 Von [...] ASAEL MALDONADO Date: 2021-12-14 13:43 Normal [facility] BUNon 12-12-2021 Urea nitrogen [Mass/Vol] 15.0 mg/dL Normal 7.0-18.0 [facility] Comment on above: Performed By: #### P RBC #### [facility] [address] [place] [address] Dr. Kayley Hatfield CALCIUMon 12-12-2021 Calcium [Mass/Vol] 9.1 mg/dL Normal 8.5-10.1 [facility] Comment on above: Performed By: #### C VDTBH #### [facility] [address] [place] [address] Dr. Kayley Hatfield CREATININEon 12-12-2021 Creatinine [Mass/Vol] 1.05 mg/dL Critically high 0.55-1.02 [facility] Comment on above: Performed By: #### P RBC #### [facility] [address] [place] [address] Dr. Kayley Hatfield EGFR-AF TRISTANIAN >60 Normal >=60 [facility] Comment on above: Performed By: #### P RBC #### [facility] [address] [place] [address] Dr. Kayley Hatfield EGFR-NON AF TRISTANIAN 53 mL/min/1.73m2 Critically low >=60 [facility] Comment on above: Performed By: #### P RBC #### [facility] [address] [place] [address] Dr. Kayley Hatfield CRPon 12-12-2021 CRP [Mass/Vol] mg/L Normal <=1.0 [facility] Comment on above: Performed By: #### P RBC #### [facility] [address] [place] [address] Dr. Kayley Hatfield MAGNESIUMon 12-12-2021 Magnesium [Mass/Vol] 1.9 mg/dL Normal 1.8-2.4 [facility] Comment on above: Performed By: #### C VDTBH #### [facility] [address] [place] [address] Dr. Kayley Hatfield PHOSPHORUSon 12-12-2021 Phosphate [Mass/Vol] 4.1 mg/dL Normal 2.6-4.7 [facility] Comment on above: Performed By: #### C VDTBH #### [facility] [address] [place] [address] Dr. Kayley Hatfield SED RATE WESTERGRENon 2021 SED RATE 35 mm/hr Critically high <=30 [facility] Comment on above: Performed By: #### P RTELEC #### [facility] [address] [place] [address] Dr. Kayley Hatfield Vital Signs Date Time Vital Sign Value Performing Clinician Facility 08-28-2024 14:50-0500 Body height 165.1 cm Erasto Burroughs MD Work Phone: [facility] 08-28-2024 14:50-0500 Body mass index (BMI) [Ratio] 16.97 kg/m2 Erasto Burroughs MD Work Phone: [facility] 08-28-2024 14:50-0500 Body temperature 97.11 [degF] Erasto Burroughs MD Work Phone: [facility] 08-28-2024 14:50-0500 Body weight 46.27 kg Erasto Burroughs MD Work Phone: [facility] 08-28-2024 14:50-0500 Diastolic blood pressure 40 mm[Hg] Erasto Burroughs MD Work Phone: [facility] 08-28-2024 14:50-0500 Heart rate 123 /min Erasto Burroughs MD Work Phone: [facility] 08-28-2024 14:50-0500 Respiratory rate 20 /min Erasto Burroughs MD Work Phone: [facility] 08-28-2024 14:50-0500 SaO2% (BldA) [Mass fraction] 94 % Erasto Burroughs MD Work Phone: [facility] 08-28-2024 14:50-0500 Systolic blood pressure 120 mm[Hg] Erasto Burroughs MD Work Phone: [facility] 07-17-2024 15:22-0500 Body mass index (BMI) [Ratio] 19.6 kg/m2 Erasto Burroughs MD Work Phone: [facility] 07-17-2024 15:22-0500 Body temperature 96.69 [degF] Erasto Burroughs MD Work Phone: [facility] 07-17-2024 15:22-0500 Body weight 53.43 kg Erasto Burroughs MD Work Phone: [facility] 07-17-2024 15:22-0500 Diastolic blood pressure 62 mm[Hg] Erasto Burroughs MD Work Phone: [facility] 07-17-2024 15:22-0500 Heart rate 76 /min Erasto Burroughs MD Work Phone: [facility] 07-17-2024 15:22-0500 SaO2% (BldA) [Mass fraction] 95 % Erasto Burroughs MD Work Phone: [facility] 07-17-2024 15:22-0500 Systolic blood pressure 150 mm[Hg] Erasto Burroughs MD Work Phone: [facility] 06-26-2024 11:32-0500 Body height 165.1 cm Erasto Burroughs MD Work Phone: [facility] 06-26-2024 11:32-0500 Body mass index (BMI) [Ratio] 18.14 kg/m2 Erasto Burroughs MD Work Phone: [facility] 06-26-2024 11:32-0500 Body temperature 97.11 [degF] Erasto Burroughs MD Work Phone: [facility] 06-26-2024 11:32-0500 Body weight 49.44 kg Erasto Burroughs MD Work Phone: [facility] 06-26-2024 11:32-0500 Diastolic blood pressure 58 mm[Hg] Erasto Burroughs MD Work Phone: [facility] 06-26-2024 11:32-0500 Heart rate 124 /min Erasto Burroughs MD Work Phone: [facility] 06-26-2024 11:32-0500 SaO2% (BldA) [Mass fraction] 98 % Erasto Burroughs MD Work Phone: [facility] 06-26-2024 11:32-0500 Systolic blood pressure 110 mm[Hg] Erasto Burroughs MD Work Phone: [facility] 06-26-2023 15:27-0500 Diastolic blood pressure 103 mm[Hg] MD Erasto Burroughs Work Phone: [facility] 06-26-2023 15:27-0500 Heart rate 81 /min MD Erasto Burroughs Work Phone: [facility] 06-26-2023 15:27-0500 Respiratory rate 18 /min MD Erasto Burroughs Work Phone: [facility] 06-26-2023 15:27-0500 SaO2% (BldA) [Mass fraction] 95 % MD Erasto Burroughs Work Phone: [facility] 06-26-2023 15:27-0500 Systolic blood pressure 162 mm[Hg] MD Erasto Burroughs Work Phone: [facility] 06-26-2023 13:44-0500 Body height 162.56 cm MD Erasto Burroughs Work Phone: [facility] 06-26-2023 13:44-0500 Body weight 59.87 kg MD Erasto Burroughs Work Phone: [facility] 06-26-2023 13:44-0506 Inhaled oxygen flow rate 2 L/min MD Erasto Burroughs Work Phone: [facility] Encounters Encounter Date Encounter Type Care Provider Facility Start: 11-10-2024 ambulatory Ihsna Smiley ty:RAHAT Goldman Start: 08-28-2024 End: 08-28-2024 Office outpatient visit 15 minutes Erasto Burroughs MD Work Phone: [facility] Comment on above: Acute bronchitis due to other specified organisms (Primary Dx); Chronic obstructive pulmonary disease, unspecified COPD type ([facility]) Start: 08-28-2024 End: 08-28-2024 ambulatory ERASTO BURROUGHS Not Available Start: 08-28-2024 End: 08-28-2024 Bamboo flowsheet Erasto Burroughs MD Work Phone: [facility] Start: 08-28-2024 End: 08-28-2024 Bamboo flowsheet Erasto Burroughs MD Work Phone: [facility] Start: 07-17-2024 End: 07-17-2024 Office outpatient visit 25 minutes Erasto Burroughs MD Work Phone: [facility] Comment on above: Pneumonia due to inf ectious organism, unspecified laterality, unspecified part of lung (Primary Dx); COPD with acute exacerbation ([facility]); Pleurisy Start: 07-17-2024 End: 07-17-2024 ambulatory ERASTO BURROUGHS Not Available Start: 07-17-2024 End: 07-17-2024 Bamboo flowsheet Erasto Burroughs MD Work Phone: [facility] Start: 07-17-2024 End: 07-17-2024 Bamboo flowsheet Erasto Burroughs MD Work Phone: [facility] Start: 07-09-2024 End: 07-09-2024 ambulatory Gt M Yoselin [facility] Work Phone: Start: 07-09-2024 End: 07-09-2024 Departed Referred Gt Wyatt MD Work Phone: [facility] Start: 07-08-2024 End: 07-08-2024 ambulatory Gt Easton Yoselin [facility] Work Phone: Start: 07-08-2024 End: 07-08-2024 Departed Referred Gt Wyatt MD Work Phone: [facility] Start: 07-07-2024 End: 07-09-2024 Clinisync Result Encounter Generic External Data Provider [facility] External Department Unsolicited Start: 07-07-2024 End: 07-09-2024 Clinisync Result Encounter Generic External Data Provider [facility] External Department Unsolicited Start: 06-26-2024 End: 06-26-2024 Bamboo flowsheet Erasto [...] unspecified fever cause; COPD with acute exacerbation (CMS/HCC) Start: 06-26-2024 End: 06-26-2024 ambulatory ERASTO BURROUGHS Not Available Start: 06-08-2024 End: 06-08-2024 Non-patient / Non-visit Gt Wyatt MD Work Phone: [facility] Work Phone: Start: 06-07-2024 End: 06-10-2024 Clinisync Result Encounter [...] Start: 05-12-2024 End: 05-12-2024 ambulatory Ihsan BROWN Facility:[facility] Start: 04-29-2024 End: 04-30-2024 Refill Erasto Burroughs MD Work Phone: [facility] Comment on above: DDD (degenerative di sc disease), lumbar Start: 03-12-2024 End: 03-12-2024 Orders Only Erasto Burroughs MD Work Phone: [facility] Comment on above: Type 2 diabetes vickey itus with hyperglycemia, without long-term current use of insulin ([facility]/HCC) (Primary Dx) Start: 03-11-2024 End: 03-12-2024 Clinisync Result Encounter Erasto Burroughs MD Work Phone: [facility] Unsolicited Start: 03-11-2024 End: 03-12-2024 Clinisync Result Encounter Erasto Burroughs MD Work Phone: [facility] Unsolicited Start: 02-21-2024 End: 02-21-2024 ambulatory ERASTO BURROUGHS Not Available Start: 01-07-2024 End: 01-07-2024 ambulatory [facility] Start: 11-09-2023 End: 11-09-2023 ambulatory Ihsan Wild BROWN Facility[facility] Start: 08-18-2023 Refill Erasto Leggett Work Phone: [facility] Comment on above: DDD (degenerative di sc disease), lumbar (Primary Dx) Start: 06-27-[address] [facility] Start: 06-26-2023 End: 06-26-2023 Admission to same day surgery center MD Erasto Burroughs Work Phone: [facility] Work Phone: Start: 06-26-2023 End: 06-26-2023 ambulatory MD Erasto Burroughs Work Phone: [facility] Work Phone: Start: 06-05-2023 Evaluation and management of inpatient KONGPO BEAULIEU [facility] Start: 06-05-2023 Evaluation and management of inpatient NOLIANKRISTAN [facility] Start: 06-05-2023 Evaluation and management of inpatient NOORALKRISTAN [facility] Start: 06-04-2023 End: 06-06-2023 Evaluation and management of inpatient AVINASH SERRANO [facility] Start: 05-15-2023 ambulatory Iman Jeter Facility:[facility] Start: 10-31-2022 End: 11-01-[address] ERASTO BURROUGHS Facility: Start: 10-10-2022 End: 04-05-[address] ERASTO BURROUGHS Facility:[facility] Start: 05-01-2022 End: 05-02-[address] ERASTO BURROUGHS Facility:[facility] Start: 05-01-[address] ERASTO BURROUGHS Facil ity:[facility]1 Start: 04-25-2022 End: 04-26-[address] ERASTO BURROUGHS Facility:[facility] Start: 04-04-2022 Encounter for genera l adult medical examination without abnormal findings DR ERASTO BURROUGHS [facility] Start: 03-30-[address] ERASTO BURROUGHS Facil ity:[facility]1 Start: 03-29-2022 Encounter for genera l adult medical examination without abnormal findings DR ERASTO BURROUGHS [facility] Start: 03-28-2022 End: 03-30-2022 Evaluation and management of inpatient DR ERASTO BURROUGHS Facility:[facility] Start: 03-28-2022 End: 03-29-[address] ERASTO BURROUGHS Facility:[facility] Start: 03-28-2022 End: 03-29-2022 Encounter for general adult medical examination without abnormal findings DR ERASTO BURROUGHS Facility:[facility] Start: 03-08-2022 End: 03-15-2022 Evaluation and management of inpatient VALERIO BALAJI Facility:[facility] Start: 03-06-2022 End: 03-08-2022 Evaluation and management of inpatient DR ERASTO BURROUGHS Facility:[facility] Start: 12-22-2021 End: 12-23-[address] ERASTO BURROUGHS Facility:[facility] Start: 12-14-2021 End: 12-14-[address] ERASTO BURROUGHS Facility:[facility] Start: 12-12-2021 End: 12-13-[address] ERASTO BURROUGHS Facility:[facility] Procedures Date Procedure Procedure Detail Performing Clinician Start: 07-08-2024 Gram stain microscopy Gt Wyatt MD Work Phone: Start: 07-07-2024 BLOOD CULTURE 1 Generic External Data Provider Start: 07-07-2024 BLOOD CULTURE 2 Generic External Data Provider Start: 06-26-2024 BLOOD CULTURE 2 Generic External [...] Work Phone: Start: 06-26-2023 Esophagogastroduodenoscopy MD Erasto dobson Work [...] Screening for malign ant neoplasm of colon [facility] Start: 04-15-2026 Glaucoma screening Diabetes: R etinopathy Screening [facility] Start: 10-09-2024 End: 10-09-2024 Patient encounter procedure 10/09/2024 1:00 PM EDT Office Visit [facility] [address] [place] [address] Erasto Burroughs MD [address] [place] [id number] [facility] Start: 09-08-2024 Hemoglobin A1c measurement Diabetes: Hemoglobin A1C [facility] Start: 08-28-2024 End: 08-28-2024 Patient encounter procedure 08/28/2024 2:45 PM EST Office Visit [facility] [address] [place] [address] Erasto Burroughs MD [address] [place] [phone] Arrived [facility] Comment on above: Arrived Start: 08-28-2024 End: 08-28-2025 XR Chest 2 Views XR chest 2 views Imaging STAT Acute bronchitis due to other specified organisms Chronic obstructive pulmonary disease, unspecified COPD type ([facility]) Expected: 08/28/2024, Expires: 08/28/2025 [facility] Work Phone: Comment on above: Expected: 08/28/2024 , Expires: 08/28/2025 Start: 07-17-2024 End: 07-17-2024 Patient encounter procedure 07/17/2024 3:15 PM EST [facility] [address] [place] [address] Erasto Burroughs MD [address] [place] [phone] Arrived [facility] Comment on above: Arrived Start: 07-11-2024 End: 07-11-2024 Patient encounter procedure 07/11/2024 11:45 AM EST Office Visit [facility] [address] [place] [address] Erasto Burroughs MD [address] [place] [phone] [facility] Start: 07-09-2024 Bacteria identified in Urine by Culture Urine Culture [facility] Start: 07-09-2024 Urine culture [facility] Start: 07-08-2024 Aerobic Culture Aerobic Culture [facility] Start: 07-08-2024 Aerobic microbial culture Aerobic Culture [facility] Start: 07-08-2024 Microbial culture of sputum [facility] Start: 06-26-2024 End: 06-26-2024 Patient encounter procedure 06/26/2024 11:30 AM EST Office Visit [facility] [address] [place] [address] Erasto Burroughs MD [address] [place] [phone] Arrived [facility] Comment on above: Arrived Start: 06-06-2024 Urine screening for protein Diabetes: Urine Protein Screening [facility] Start: 05-27-2024 End: 05-27-2024 Patient encounter procedure 05/27/2024 1:30 PM EST Office Visit [facility] [address] [place] [phone] Erasto Burroughs MD [address] [place] [address] [facility] Start: 03-09-2024 Influenza vaccination Influenza Vacc ine (#1) [facility] Start: 12-04-2023 Hemoglobin A1c measurement Diabetes: Hemoglobin A1C [facility] Start: 09-05-2023 Hemoglobin A1c measurement Diabetes: Hemoglobin A1C [facility] Start: 08-27-2023 End: 08-27-2023 Patient encounter procedure 08/27/2023 2:30 PM EST Office Visit [facility] [address] [place] [address] Erasto Burroughs MD [address] [place] [phone] [facility] Start: 06-26-2023 [facility] Start: 03-09-2023 Influenza vaccination Influenza Vacc ine (#1) [facility] Start: 1997 Screening for malign ant neoplasm of breast Mammogram [facility] Start: 1976 Urine screening for protein Diabetes: Urine Protein Screening [facility] Start: 1967 Glaucoma screening Diabetes: R etinopathy Screening [facility] Start: 1957 Screening for malign ant neoplasm of colon [facility] BLOOD CULTURE 1 BLOOD CULTURE 1 Lab Routine 06/06/2024 10:14 AM EST [facility] BLOOD CULTURE 1 BLOOD CULTURE 1 Lab Routine 06/26/2024 12:25 PM EST [facility] BLOOD CULTURE 1 BLOOD CULTURE 1 Lab Routine 07/07/2024 1:37 PM EST [facility] BLOOD CULTURE 2 BLOOD CULTURE 2 Lab Routine 06/06/2024 10:21 AM EST [facility] BLOOD CULTURE 2 BLOOD CULTURE 2 Lab Routine 06/26/2024 2:51 PM EST [facility] BLOOD CULTURE 2 BLOOD CULTURE 2 Lab Routine 07/07/2024 1:32 PM EST [facility] Patient Education Esophageal Dilation [facility] Work Phone: Payers Date Payer Category Payer Self-pay [id number] 2022 Private Health Insurance [facility] [id number] 2022 Unknown [employer] [id number] 2022-Present [phone] [address] [address] [place] [address] [id number] 2013 Medicare [id number] 1.13.693. [id number] 1959 Medicare [id number] 1959 Unknown [id number] 1959 Unknown [id number] 1957 Unknown [id number] 2.16.840.1.570447.3.579. 2.647 1957 Unknown [id number] 2.16.840.1.209637.3.579. 2.593 1957 Unknown [id number] 2.16.840.1.382061.3.579. 2.593 1957 Unknown [id number] 2.16.840.1.061698.3.579. 2.593 1957 Unknown [id number] 2.16.840.1.685228.3.579. 2.593 1957 Unknown [id number] 2.16.840.1.049903.3.579. 2.593 1957 Unknown [id number] 2.16.840.1.026239.3.579. 2.593 1957 Unknown [id number] 2.16.840.1.016883.3.579. 2.593 1957 Unknown [id number] 2.16.840.1.602847.3.579. 2.593 1957 Unknown [id number] 2.16.840.1.488321.3.579. 2.593 1957 Unknown [id number] 2.16.840.1.835740.3.579. 2.593 1957 Unknown [id number] 2.16.840.1.128918.3.579. 2.593 1957 Unknown [id number] 2.16.840.1.141294.3.579. 2.593 1957 Unknown [id number] 2.16.840.1.423699.3.579. 2.593 1957 Unknown [id number] 2.16.840.1.747128.3.579. 2.727 1957 Unknown [id number] 2.16.840.1.872697.3.579. 2.727 1957 Unknown [id number] 2.16.840.1.938671.3.579. 2.727 1957 Unknown [id number] 2.16.840.1.759600.3.579. 2.727 1957 Unknown [id number] 2.16.840.1.550505.3.579. 2.1258 1957 Unknown [id number] 2.16.840.1.159673.3.579. 2.1259 1957 Unknown [id number] 2.16.840.1.145040.3.579. 2.1258 1957 Unknown [id number] 2.16840.1.694535.3.579. 2.1259 Medicare Medicare [id number] Unknown [id number] 2.16.840.1.086339.3.579. 2.531 Unknown [id number] 2.16.840.1.668739.3.579. 2.531 Social History Date Type Detail Facility Start: 06-14-2023 End: 06-26-2023 Tobacco smoking status FLIS Ex-smoker (finding) [facility] Start: 1955 Sex Assigned At Female F [facility] Start: 03-06-1982 End: 03-06-2022 History of tobacco use Current smoker [facility] Start: 03-06-1982 End: 03-06-2022 History of tobacco use Cigarette Smoker [facility] Start: 06-14-2023 End: 08-28-2024 Cigarettes smoked current (pack per day) - Reported 2 [facility] Start: 06-14-2023 Tobacco use and exposure Smokeless tobacco non-user [facility] Start: 06-14-2023 End: 08-28-2024 Alcohol intake Ex-drinker (finding) [facility] Start: 06-14-2023 End: 08-28-2024 Tobacco use panel [facility] Start: 06-14-2023 Alcohol Comment caffine-2 cups daily [facility] Start: 1955 Sex Assigned At Not on file [facility] Start: 07-09-2024 End: 07-11-2024 Sex Female (finding) [facility] Goals Date Patient Goal Desired Activity /State Clinical Notes 03-09-2022 to 08-28-2024 Erasto Burroughs MD - 08/28/2024 3:09 PM Kelly Burroughs MD - 08/28/2024 3:09 PM Kelly Burroughs MD - 08/28/2024 2:45 PM Kelly Burroughs MD - 07/17/2024 4:54 PM EST Note Date & Type Note Facility 08-28-2024 History of Present illness Narrative Associated Problem(s): COPD (chronic obstructive pulmonary disease) ([facility]) Increased SOB and use albuterol PRN. Associated Problem(s): Acute bronchitis due to other specified organisms Check x-ray. Take antibiotics for 7 days. Use prednisone for inflammation. Use sudafed or other decongestants as needed. Use Robitussin or Robitussin-DM for cough. Can use afrin for congestion but no longer than 3 days. Can use Mucinex to bring up phlegm. Use Motrin or Tylenol as needed for fever, aches, or pains. Increase fluid intake and rest. Should improve over next 5-7 days and if no better or worse call for re-evaluation. Images from the original note were not included. Subjective Patient ID: Lise Canales is a 69 y.o. female who presents for Follow-up (Weak, tired vomiting, congestion). C/o cough, congestion, and rhinorrhea x 1 week. Afebrile. Severe fatigue and no energy. Frequent cough productive yellow sputum. Chest tight and SOB. GIL and sinus pressure in forehead and cheeks along with postnasal drip. Ears plugged and popping. Sore throat and pain to swallow. Severe nausea and frequent emesis. Denies recent sick contacts. Using OTC medication and mild relief. Not tried albuterol. No improvement in symptoms since onset. Review of Systems Respiratory: Negative for cough, [...] Problem List Items Addressed This Visit COPD (chronic obstructive pulmonary disease) ([facility]) Increased SOB and use albuterol PRN. Relevant Orders XR chest 2 views Acute bronchitis due to other specified organisms - Primary Check x-ray. Take antibiotics for 7 days. Use prednisone for inflammation. Use sudafed or other decongestants as needed. Use Robitussin or Robitussin-DM for cough. Can use afrin for congestion but no longer than 3 days. Can use Mucinex to bring up phlegm. Use Motrin or Tylenol as needed for fever, aches, or pains. Increase fluid intake and rest. Should improve over next 5-7 days and if no better or worse call for re-evaluation. Relevant Medications levoFLOXacin (Levaquin) 750 MG tablet predniSONE (Deltasone) 10 MG tablet Other Relevant Orders XR chest 2 views documented in this encounter [facility] 07-17-2024 History of Present illness Narrative Associated Problem(s): Pneumonia due to infectious organism Recent infection and improved. Monitor. Associated Problem(s): Pleurisy Severe pain and complete steroids. Use heat to chest wall. Use ultram PRN. Associated Problem(s): COPD with acute exacerbation (CMS/HCC) Recently treated and complete steroids. Use albuterol PRN. Images from the original note were not included. Subjective Patient ID: Lise Canales is a 69 y.o. female who presents for Hospital Follow-up. Hospital follow up from 06/26-06/27 and 07/07-07/11 for pneumonia and COPD exacerbation. Developed cough, congestion, and rhinorrhea. Severe SOB and chest tight. Hard to catch breath. To ER and found hypoxia and pneumonia. Admitted and treated. Improved and discharged but next week symptoms returned. Again with pneumonia and admitted. Completed antibiotics and on prednisone taper. Overall feels better. Less SOB and mild cough. Continues to have fatigue. C/o severe pain in ribs and flank. Pain with palpation or movement. Pain with inspiration or cough. Review of Systems Respiratory: Negative for cough, [...] This Visit COPD with acute exacerbation (CMS/HCC) Recently treated and complete steroids. Use albuterol PRN. Pneumonia due to infectious organism - Primary Recent infection and improved. Monitor. Pleurisy Severe pain and complete steroids. Use heat to chest wall. Use ultram PRN. Relevant Medications traMADol (Ultram) 50 MG tablet documented in this encounter [facility] 06-26-2024 History of Present illness Narrative Associated Problem(s): Fever Fever and possibly developing sepsis. Go to ER. Associated Problem(s): Dehydration Decreased PO and evidence of dehydration. Go to ER for evaluation. Associated Problem(s): COPD with acute exacerbation (CMS/HCC) Severe SOB and decreased BS. Likely exacerbation and go to ER for treatment. Images from the original note were not included. Subjective Patient ID: Lise Canales is a 69 y.o. female who presents for Follow-up ([facility] hospital f/up/sick). Hospital follow up from 06/06-06/08 for [...] ER for evaluation. documented in this encounter [facility] 05-12-2024 Note Patient Education Urology Urethral Dilation [...] including vitamins, herbs, eye drops, creams, and ddzz-uki-qmrjkag medicines. ??? Any problems you or family [...] your provider tells you to. ??? Taking uaiv-pfn-xcvbztv medicines, vitamins, herbs, and supplements. General instructions [...] these instructions at home: Medicines ??? Take pfne-iwb-lycpfph and prescription medicines only as told by [...] to prevent or treat constipation: ? Take efjr-xfr-bdrdevc or prescription medicines. ? Eat foods that [...] (catheter) (more content not included)... [facility] 01-07-2024 Note [place] [facility] Subjective Lise Zamudiot is a 68 y.o. year old female patient being seen for 6 mo follow up CAD and hypertension. She was admitted to [facility] 2 weeks ago for severe sepsis [...] Prior additional history: She was admitted to [facility] in 10/2017 with sudden onset symptoms [...] to [facility] transferred from the [facility] due to pneumonia. In that setting she was found to have minimally elevated troponin. Her echocardiogram and EKG were nonrevealing. She was discharged on medical therapy. In December 2023 she was admitted to the [facility] with pneumonia and sepsis. In that [...] respiratory distress. Breath (more content not included)... [facility] 06-27-2023 Note [place] [facility] Subjective Lise Zamudiot is a [...] Prior additional history: She was admitted to [facility] in 10/2017 with sudden onset symptoms [...] to [facility] transferred from the [facility] due to pneumonia. In that setting [...] Judgment normal. All (more content not included)... [facility] 06-26-2023 Procedure note [facility] 06-06-2023 Note Hospital Medicine Discharge Summary Final Discharge Diagnosis: Community acquired pneumonia of right lower lobe of lung Admission Diagnosis: NSTEMI (non-ST elevated myocardial infarction) ([facility]) [I21.4] Hospital course: 68 years old female lady with a medical history of hypertension, hyperlipidemia, gastroesophageal reflux disease, carotid disease, fibromyalgia, arthritis, polymyalgia rheumatica, COPD, temporal arteritis, and psoriasis. Came into the [facility] ER as a transfer from [facility] for concern of chest pain and [...] Center 06/27/2023 3:45 PM Jer Neff MD [facility] Your medication list START taking these [...] HYDROcodone-acetaminophen 5-325 mg tablet Commonly known as: [place] melatonin 5 mg tablet metoprolol tartrate 25 [...] Your Medications These medications were sent to [id number] [address] cefdinir 300 mg capsule doxycycline 100 mg capsule Lise is allergic to azithromycin and latex. Disposition: Home-Health Care [facility] Discharge Condition: Stable Code Status: Prior Diagnostic [...] rhythm. Lungs: C (more content not included)... 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 Yes Does the patient have a correctional case records supervisor assigned to them through their insurance? [...] link and activate MyChart? MyChart already active [facility] 06-05-2023 Note . Hospital Medicine History and Physical 06/05/2023 1:22 AM THE HOSPITALIST TEAM PREFERS TO USE [employer] FOR COMMUNICATION 7AM-7PM. IF I DO NOT RESPOND WITHIN 15 MINUTES, PLEASE PAGE ME/CALL THROUGH THE SPECIAL EDUCATION [employer] TEACHER. FROM 7PM-7AM, PLEASE PAGE [phone](COVR) Chief Complaint No chief complaint on file. [...] [facility] for concern of chest pain and [...] Date Noted NSTEMI (non-ST elevated myocardial infarction) ([facility]) 06/05/2023 Acute on chronic respiratory failure with hypoxia ([facility]) 04/01/2022 Anemia, unspecified 04/01/2022 Recurrent spontaneous pneumothorax 03/30/2022 Giant cell arteritis with polymyalgia rheumatica ([facility]) 10/11/2021 Pneumothorax on left 08/02/2016 Coronary atherosclerosis 06/15/2014 Dyslipidemia 06/15/2014 Status post percutaneous transluminal coronary angioplasty 06/15/2014 Angina pectoris ([facility]) 05/04/2014 Electrocardiogram abnormal 05/04/2014 Abdominal pain 04/24/2014 Altered mental status 04/24/2014 Benign essential hypertension 04/24/2014 Congestive heart failure ([facility]) 04/24/2014 Dyspnea 04/24/2014 Gastroesophageal reflux disease 04/24/2014 History of psychiatric disorder 04/24/2014 Hyperlipidemia 04/24/2014 Headache 04/24/2014 Raynaud's disease 04/24/2014 Other and unspecified noninfectious gastroenteritis and colitis(558.9) 05/15/2007 Candidiasis of mouth 04/17/2007 COPD (chronic obstructive pulmonary disease) ([facility] [place]) 04/17/2007 Diarrhea 04/17/2007 Loss of weight 04/17/2007 Other psoriasis 04/17/2007 Psoriatic arthropathy ([facility]) 04/17/2007 Other pneumothorax 03/30/2022 Assessment [...] over 92 -Scheduled (more content not included)... [facility] 03-15-2022 Note MR#: [id number] I [facility] Pt. Name: Lise Canales Admitted: 03/08/2022 [...] a 66-year-old female, who presented to the [facility] with shortness of breath and fatigue, [...] Penn MD Date Trans: 03/15/2022 04:48 P/gabriela [id number] cc: Erasto Burroughs M.D. [address] [facility] [address] [facility] 03-13-2022 Note MR#: [id number] I [facility] Pt. Name: LizztLise Admitted: 03/08/2022 Discharged: 03/13/2022 Date of : [...] ____ Oli Pineda MD Date Dict: 03/13/2022/10:09 Deandre/Oli Pineda MD Date Trans: 03/13/2022 10:30 A/gabriela [id number] cc: Erasto Burroughs M.D. [address] [facility] [address] [facility] 03-09-2022 Note MR#: [id number] I [facility] Pt. Name: Lise Canales Admitted: 03/05/2020 [...] appointment with the primary care provider through [facility] for close followup for her anxiety [...] 2 to 4 weeks. Follow up at [facility] on 03/16/2022 at 9:50 a.m. [...] P/Paulette Mccord CNP Date Trans: 03/09/2022 11:21 A/gabriela [id number] cc: Marti Poole M.D. [address] [facility] [address] Erasto Burroughs M.D. [address] [place] [address] The [facility] Evaluation note No assessment inform ation available [facility] Work Phone: Evaluation note Diagnosis [...] insulin (CMS/HCC)- Primary documented in this encounter [facility] HealthcareEvaluation note* Diagnosis Hospital discharge follow-up- Primary [...] exacerbation (CMS/HCC) documented in this encounter [facility] [...] fever cause COPD with acute exacerbation (CMS/HCC) Pneumonia due to infectious organism, unspecified laterality, unspecified part of lung- Primary COPD with acute exacerbation (CMS/HCC) Pleurisy Pleurisy without mention of effusion or current tuberculosis documented in this encounter [facility] [...] fever cause COPD with acute exacerbation (CMS/HCC) Pneumonia due to infectious organism, unspecified laterality, unspecified part of lung- Primary COPD with acute exacerbation (CMS/HCC) Pleurisy Pleurisy without mention of effusion or current tuberculosis Acute bronchitis due to other specified organisms- Primary Chronic obstructive pulmonary disease, unspecified COPD type (CMS/HCC) documented in this encounter [facility] Author Remy Givens [facility] June 26, 2023 2:44pm Note Date/Time June 26, 2023 2:44pm [facility] [address] [place] [address] Gastroenterology H&P Signed Patient: Lise Canales MR#: [id number] : 1955 Acct:[id number] Age/Sex: 68 / F Adm Date: 3 Loc: Room: Type: [facility] Attending Dr: Remy Givens MD Copies [...] <Electronically signed by Remy Givens MD> 06/26/23 8079 [facility] Work Phone: Hospital Discharge instructions Additional Instructions [...] problems. -Follow up with PCP. -Office number [phone].[facility] Work Phone: Summary Purpose Family History No Family History Records Found Relationship Condition Age at Onset Recorded Date/T enrique father Cerebrovascular accident (CVA) Unknown Relationship Condition Age at Onset Recorded Date/T enrique father Cerebrovascular accident (CVA) Unknown father Unknown mother Unknown Advance Directives No Advanced Directives Records Found Advance Directive Response Recorded Date/ Time Advance Directives No November 09, 2017 7:38am Chief Complaint and Reason for Visit Chief Complaint Esophageal Dysmotili ty Chief Complaint Admit Date Unknown July 08, 2024 8:10am Chief Complaint Admit Date Unknown July 08, 2024 8:10am Unknown July 09, 2024 10 :56am Additional Source Comments INFORMATION SOURCE (unrecogn ized section and content) DATE CREATED AUTHOR 04/11/2022 [facility] DATE CREATED AUTHOR AUTHOR'S ORGANIZ ATION 11/04/2022 [facility] DATE CREATED AUTHOR AUTHOR'S ORGANIZ ATION 02/14/2024 [facility] DATE CREATED AUTHOR AUTHOR'S ORGANIZ ATION 05/13/2024 [facility] DATE CREATED AUTHOR AUTHOR'S ORGANIZ ATION 07/24/2024 [facility] DATE CREATED AUTHOR AUTHOR'S ORGANIZ ATION 08/30/2024 [facility] EPIC Care Teams (unrecognized sec tion and content) Team Status: Active Member Role Status Dates Erasto Burroughs MD Primary Care Provider Active Team Status: Inactive Member Role Status Dates Erasto Burroughs MD Primary Care Provider Active Remy Givens MD Attending Provider Active Shop Mechanic Helper Relationship Specialty Start Date End Date Erasto Burroughs MD PCP - General Family Medicine 07/09/22 Shop Mechanic Helper Relationship Specialty Start Date End Date Erasto Burroughs MD [address] [place] [phone] PCP - General Family Medicine 02/21/24 Shop Mechanic Helper Relationship Specialty Start Date End Date Erasto Burroughs MD [address] [place] [phone] PCP - General Family Medicine 02/21/24 Shop Mechanic Helper Relationship Specialty Start Date End Date Erasto Burroughs MD [address] [place] [phone] PCP - General Family Medicine 02/21/24 Shop Mechanic Helper Relationship Specialty Start Date End Date Erasto Burroughs MD [address] [place] [phone] PCP - General Family Medicine 02/21/24 Shop Mechanic Helper Relationship Specialty Start Date End Date Erasto Burroughs MD [address] [place] [address] PCP - General Family Medicine 02/21/24 Shop Mechanic Helper Relationship Specialty Start Date End Date Erasto Burroughs MD [address] [place] [phone] PCP - General Family Medicine 02/21/24 Shop Mechanic Helper Relationship Specialty Start Date End Date Erasto Burroughs MD [address] [place] [phone] PCP - General Family Medicine 02/21/24 Shop Mechanic Helper Relationship Specialty Start Date End Date Erasto Burroughs MD [address] [place] [phone] PCP - General Family Medicine 02/21/24 Team Status: Active Member Role Status Dates Erasto Burroughs MD Primary Care Provider Active S tart: June 08, 2024 End: June 08, 2024 Trevor Anne DO Attending Provider Active Sta rt: June 08, 2024 End: June 08, 2024 Shaikh Rick MD Referring Provider Active Sta rt: June 08, 2024 End: June 08, 2024 Team Status: Inactive Member Role Status Dates Gt Wyatt MD Attending Provider Active Sta rt: July 08, 2024 End: July 08, 2024 Team Status: Inactive Member Role Status Dates Gt Wyatt MD Attending Provider Active Sta rt: July 09, 2024 End: July 09, 2024 Shop Mechanic Helper Relationship Specialty Start Date End Date Erasto Burroughs MD [address] [place] [place] [address] PCP - General Family Medicine 02/21/24 Shop Mechanic Helper Relationship Specialty Start Date End Date Erasto Burroughs MD [address] [place] [phone] PCP - General Family Medicine 02/21/24 Shop Mechanic Helper Relationship Specialty Start Date End Date Erasto Burroughs MD [address] [place] [phone] PCP - General Family Medicine 02/21/24 Reason for Visit (unrecogniz ed section and content) Reason Comments Med Refill Reason Comments Follow-up [facility] hospital f/upsic k Reason Comments Hospital Follow-up Reason Comments Follow-up Weak, tired vomiting , congestion Goals (unrecognized section and content) Goals may be documented in a n alternate sectionGoals may be documented in an alternate section FOR RECORDS PERTAINING TO PATIENTS WHO ARE [...] BE BASED ON THE PRIMARY CLINICAL RECORDS. [facility]. provides no warranty or guarantee of the accuracy or completeness of information in this document.
[2024-09-26 19:06] VITALS: BP 157/93; PULSE 109; TEMP 36.8; O2SAT 97; BMI 17.5
[2024-09-26] MEDS: KETOROLAC TROMETHAMINE 60 MG/2 ML VIAL IM (19:27)
--- NOTE | 2024-09-26 19:32 | ED_ITS ---
HPI HPI - General Adult General Chief complaint: Extremity Injury, Lower Stated complaint: LEFT HIP PAIN Time Seen by Provider: 09/26/24 19:04 Source: patient Mode of arrival: Wheelchair History of Present Illness HPI narrative: 69-year-old female presents for pain in her left hip going all the way down her leg to her ankle. There is been no injury. She has had this for multiple weeks and had some x-rays of her hip and pelvis which did not show any acute findings. She is fallen twice recently but did not injure herself, she fell because of the pain. No numbness or weakness in the leg. No symptoms in the right leg. She had a T12 fracture years ago which did not require any procedures. Related Data Home Medications ?Medication ?Instructions ?Recorded ?Confirmed aspirin 81 mg tablet,delayed 81 mg PO DAILY 03/06/23 07/07/24 release atorvastatin 40 mg tablet 40 mg PO .QHS 03/06/23 07/07/24 duloxetine 30 mg capsule,delayed 90 mg PO DAILY 03/06/23 07/07/24 release eszopiclone 3 mg tablet (Lunesta) 3 mg PO .QHS PRN sleep 03/06/23 07/07/24 melatonin 5 mg tablet 5 mg PO .QHS 03/06/23 07/07/24 metoprolol tartrate 25 mg tablet 12.5 mg PO BID 03/06/23 07/07/24 omeprazole 40 mg capsule,delayed 40 mg PO .BIDAC 03/06/23 07/07/24 release pregabalin 100 mg capsule (Lyrica) 100 mg PO TID 03/06/23 07/07/24 albuterol sulfate 90 mcg/actuation 2 puff inhalation Q4H PRN 12/18/23 07/07/24 aerosol inhaler shortness of breath or wheezing guaifenesin 600 mg tablet, 1,200 mg PO BID 12/18/23 07/07/24 extended release 12 hr cholecalciferol (vitamin D3) 50 50 mcg PO DAILY 02/14/24 07/07/24 mcg (2,000 unit) capsule cranberry 500 mg capsule 500 mg PO DAILY 02/14/24 07/07/24 ferrous sulfate 325 mg (65 mg 325 mg PO DAILY 02/14/24 07/07/24 iron) tablet potassium chloride 20 mEq 20 meq PO DAILY PRN hypokalemia 02/14/24 07/07/24 tablet,extended release estradiol 0.01% (0.1 mg/gram) 1 appful vaginal .QWK AT BEDTIME 06/06/24 07/07/24 vaginal cream glipizide 5 mg tablet 5 mg PO DAILY 06/26/24 07/07/24 Previous Rx's ?Medication ?Instructions ?Recorded ipratropium 0.5 mg-albuterol 3 mg 3 ml inhalation Q6H PRN shortness 06/27/24 (2.5 mg base)/3 mL nebulization of breath or wheezing 30 days #1 soln kit prednisone 20 mg tablet 20 mg PO BID 7 days #14 tabs 06/27/24 benzonatate 100 mg capsule 200 mg (2 x 100 mg) PO Q8H PRN 07/11/24 Cough #30 caps cefdinir 300 mg capsule 600 mg (2 x 300 mg) PO DAILY #20 07/11/24 caps clindamycin HCl 300 mg capsule 300 mg PO Q6H 10 days #40 caps 07/11/24 prednisone 10 mg tablet 50 mg (5 x 10 mg) PO DAILY #47 tabs 07/11/24 hydrocodone 5 mg-acetaminophen 325 1 tab PO Q6H PRN pain 3 days #12 09/11/24 mg tablet tabs methocarbamol 500 mg tablet 500 mg PO TID PRN muscle pain #15 09/11/24 tabs oxycodone-acetaminophen 5 mg-325 1 tab PO Q6H PRN pain 5 days #20 09/26/24 mg tablet (Percocet) tabs Allergies Allergy/AdvReac Type Severity Reaction Status Date / Time azithromycin (From Zithromax Allergy Severe Unknown Verified 02/18/24 18:30 Z-Leonardo) Latex, Natural Rubber Allergy Severe Unknown Verified 02/18/24 18:30 Opioid HPI Opioid Management Most Recent Opioid Data: Last Pain Scale 2 07/10/24 21:50 07/10/24 Last Pain Intensity 0 03/06/23 15:53 03/06/23 Last ORT Total Score 0 07/07/24 15:45 07/07/24 Last ORT Risk Category Low Risk 07/07/24 15:45 07/07/24 Review of Systems ROS Narrative A ten point review of systems is negative except as noted above. [facility] History Right lower lobe pneumonia ?J18.9 - Pneumonia, unspecified organism (ICD-10) Acute pyelonephritis ?N10 - Acute pyelonephritis (ICD-10) Sepsis ?A41.9 - Sepsis, unspecified organism (ICD-10) Immunosuppressed status ?D84.9 - Immunodeficiency, unspecified (ICD-10) Chronic steroid use Temporal arteritis ?M31.6 - Other giant cell arteritis (ICD-10) CKD stage 3b, GFR 30-44 ml/min ?N18.32 - Chronic kidney disease, stage 3b (ICD-10) Chronic respiratory failure with hypoxia ?J96.11 - Chronic respiratory failure with hypoxia (ICD-10) History of tobacco abuse ?Z87.891 - Personal history of nicotine dependence (ICD-10) CAD (coronary artery disease) ?I25.10 - Atherosclerotic heart disease of [place] coronary artery without angina pectoris (ICD-10) Essential hypertension ?I10 - Essential (primary) hypertension (ICD-10) Type 2 diabetes mellitus with hyperglycemia ?E11.65 - Type 2 diabetes mellitus with hyperglycemia (ICD-10) Polymyalgia rheumatica ?M35.3 - Polymyalgia rheumatica (ICD-10) Non-ST elevated myocardial infarction (non-STEMI) ?I21.4 - Non-ST elevation (NSTEMI) myocardial infarction (ICD-10) Hyperlipidemia ?E78.5 - Hyperlipidemia, unspecified (ICD-10) Hyperglycemia, drug-induced ?R73.9 - Hyperglycemia, unspecified (ICD-10) ?T50.905A - Adverse effect of unspecified drugs, medicaments and biological substances, initial encounter (ICD-10) COPD (chronic obstructive pulmonary disease) ?J44.9 - Chronic obstructive pulmonary disease, unspecified (ICD-10) Depression ?F32.A - Depression, unspecified (ICD-10) Acid reflux ?K21.9 - Gastro-esophageal reflux disease without esophagitis (ICD-10) Nerve pain ?M79.2 - Neuralgia and neuritis, unspecified (ICD-10) Back pain ?M54.9 - Dorsalgia, unspecified (ICD-10) Thoracotomy scar of right chest ?L90.5 - Scar conditions and fibrosis of skin (ICD-10) History of oxygen administration ?Z99.81 - Dependence on supplemental oxygen (ICD-10) UTI (urinary tract infection), bacterial ?N39.0 - Urinary tract infection, site not specified (ICD-10) ?A49.9 - Bacterial infection, unspecified (ICD-10) Urethral stenosis Surgical History Status post bilateral cataract extraction ?Z98.41 - Cataract extraction status, right eye (ICD-10) ?Z98.42 - Cataract extraction status, left eye (ICD-10) 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 [part of] (ICD-10) Stented coronary artery ?Z95.5 - Presence of coronary angioplasty implant and graft (ICD-10) Family History Mother Family history of COPD (chronic obstructive pulmonary disease) Brother Family history of COPD (chronic obstructive pulmonary disease) Father Family history of COPD (chronic obstructive pulmonary disease) Family history of stroke Social History Within the past year, how often did you have a drink containing alcohol: never Within the past year, how many standard drinks containing alcohol did you have on a typical day: 1 or 2 Within the past year, how often did you have six or more drinks on one occasion: never Total score: 0 Score interpretation: A score less than 3 is consistent with normal alcohol consumption. Smoking status: Former smoker Non-prescribed substance use: denies use Previous occupational history: disabled Highest level of school completed/degree received: Associate degree: academic program Are you now , , , , never or living with a partner: Little interest or pleasure in doing things: several days Feeling down, depressed, or hopeless: not at all Feel stressed/tense/nervous/anxious/difficulty sleeping: only a little Do you think of yourself as: straight/heterosexual Gender Identity: female Exam Narrative Exam Narrative: Nurses note and vital signs reviewed and patient is not hypoxic. General: The patient appears in no apparent distress. Skin: Warm, dry, no pallor noted. There is no rash noted. Head: Normocephalic, atraumatic Eye: Normal conjunctiva, no drainage Ears, Nose, Mouth, and Throat: oral mucosa is moist. Nares patent. Cardiovascular: Regular Rate and Rhythm Respiratory: Patient is in no distress, no accessory muscle use, lungs are clear to auscultation, no wheezing, rales or rhonchi Back: non-tender, no bruise or rash or abrasion GI: Soft and nontender Musculoskeletal: Her left leg is examined. There is no erythema or swelling. No calf tenderness or masses. Dorsalis pedis pulse 2+. Hip has good range of motion actively and passively. Neurological: A&O, normal speech Psychiatric: Cooperative Constitutional Vital Signs, click to edit/add: Last Vital Signs Temp 98.2 F 09/26/24 19:06 Pulse 109 H 09/26/24 19:06 Resp 18 09/26/24 19:06 BP 157/93 H 09/26/24 19:06 Pulse Ox 97 09/26/24 19:06 O2 Del Method Room Air 09/26/24 19:06 Course Vital Signs Vital signs: Vital Signs Temperature 98.2 F 09/26/24 19:06 Pulse Rate 109 H 09/26/24 19:06 Respiratory Rate 18 09/26/24 19:06 Blood Pressure 157/93 H 09/26/24 19:06 Pulse Oximetry 97 09/26/24 19:06 Oxygen Delivery Method Room Air 09/26/24 19:06 Temperature 98.2 F 09/26/24 19:06 Pulse Rate 109 H 09/26/24 19:06 Respiratory Rate 18 09/26/24 19:06 Blood Pressure 157/93 H 09/26/24 19:06 Pulse Oximetry 97 09/26/24 19:06 Oxygen Delivery Method Room Air 09/26/24 19:06 Medical Decision Making MDM Narrative Medical decision making narrative: CT findings are discussed with the patient. She was given IM Toradol and a Percocet here and prescribed Percocet. She will follow-up with Dr. Perry. Treatment diagnosis and follow-up were discussed with the patient. Differential Diagnosis Differential Diagnosis: Needed disc, bulging disc, compression fracture Imaging Data CT lumbar: Radiologist's impression: CT lumbar: No acute fracture, no acute dislocation, mild to moderate chronic compression fracture deformity affecting the upper portion of T12, small posterior lateral disc bulge components contribute to mild bilateral neuroforaminal stenosis in the mid and lower lumbar spine levels Discharge Plan Discharge Chief Complaint: Extremity Injury, Lower Clinical Impression: Left lumbar radiculopathy, Bulging lumbar disc Patient Disposition: Home, Self-Care Time of Disposition Decision: 20:43 Condition: Good Mode of Transportation: Private Vehicle Prescriptions / Home Meds: New oxycodone-acetaminophen [Percocet] 5-325 mg tablet 1 tab PO Q6H PRN (Reason: pain) 5 Days Qty: 20 0RF No Action atorvastatin 40 mg tablet 40 mg PO .QHS metoprolol tartrate 25 mg tablet 12.5 mg PO BID omeprazole 40 mg capsule,delayed release(DR/EC) 40 mg PO .BIDAC duloxetine 30 mg capsule,delayed release(DR/EC) 90 mg PO DAILY aspirin 81 mg tablet,delayed release (DR/EC) 81 mg PO DAILY eszopiclone [Lunesta] 3 mg tablet 3 mg PO .QHS PRN (Reason: sleep) melatonin 5 mg tablet 5 mg PO .QHS pregabalin [Lyrica] 100 mg capsule 100 mg PO TID potassium chloride 20 mEq tablet extended release 20 meq PO DAILY PRN (Reason: hypokalemia) ferrous sulfate 325 mg (65 mg iron) tablet 325 mg PO DAILY cranberry 500 mg capsule 500 mg PO DAILY Rx Instructions: administer with a meal cholecalciferol (vitamin D3) 50 mcg (2,000 unit) capsule 50 mcg PO DAILY estradiol 0.01 % (0.1 mg/gram) cream 1 appful VAGINAL .QWK glipizide 5 mg tablet 5 mg PO DAILY ipratropium-albuterol 0.5 mg-3 mg(2.5 mg base)/3 mL Solution For Nebulization 3 ml inhalation Q6H PRN (Reason: shortness of breath or wheezing) 30 Days Qty: 1 0RF Rx Instructions: please dispense #1 box prednisone 20 mg tablet 20 mg PO BID 7 Days Qty: 14 0RF hydrocodone-acetaminophen 5-325 mg tablet 1 tab PO Q6H PRN (Reason: pain) 3 Days Qty: 12 0RF Rx Instructions: DX: M25.552 methocarbamol 500 mg tablet 500 mg PO TID PRN (Reason: muscle pain) Qty: 15 0RF albuterol sulfate 90 mcg/actuation HFA aerosol inhaler 2 puff INHALATION Q4H PRN (Reason: shortness of breath or wheezing) guaifenesin 600 mg tablet extended release 12hr 1,200 mg PO BID benzonatate 100 mg Capsule 200 mg PO Q8H PRN (Reason: Cough) Qty: 30 0RF cefdinir 300 mg capsule 600 mg PO DAILY Qty: 20 0RF prednisone 10 mg tablet 50 mg PO DAILY Qty: 47 0RF Rx Instructions: 5/day for 3 days. 4/day for 3 days, 3/day for 3 days, 2/day for 3 days, 1/day for 3 days, 1/2 /day for 4 days clindamycin HCl 300 mg capsule 300 mg PO Q6H 10 Days Qty: 40 0RF Print Language: Cymraes Instructions: Lumbar Radiculopathy (ED) Referrals: Erasto Henry MD [Primary Care Provider] - 1 week
[2024-09-26] MEDS: OXYCODONE HCL/ACETAMINOPHEN 5MG/325MG 1 TAB PO ×2 (20:58)
== END 2024-09-26 21:07 | disposition home or self-care (01) ==
PROVIDERS: Emergency Provider Emergency Medicine; PCP Family Medicine
DX: M51.16 Intervertebral disc disorders with radiculopathy, lumbar region (principal); Z91.81 History of falling; Z90.2 Acquired absence of lung [part of]; Z95.5 Presence of coronary angioplasty implant and graft; Z87.891 Personal history of nicotine dependence
CPT/HCPCS: 72131; 96372; 99284; J1885

== ENCOUNTER 2024-10-10 11:18 | Outpatient (OUT) | payer OTHER, MEDICARE, SELFPAY ==
--- NOTE | 2024-10-10 | XR_ITS ---
The [address] [address] Patient Name: SANDRA Easton COVERT MRN: [facility]:[id number] date: 1955 Sex: F Assigned Patient Location: Current Patient Location: LAB Accession/Order Number: [id number] Exam Date: 10/10/2024 12:36 Report Date: 10/10/2024 12:41 At the request of: MICAELA ALANIZ MD Procedure: XR lumbar spine min 4V LUMBAR SPINE WITH FLEXION AND EXTENSION VIEWS - 4 views: CLINICAL HISTORY: Acute low back pain with radiation to the left lower extremity where there is weakness. COMPARISON: CT lumbar spine 09/26/2024 Standing AP as well as lateral views in neutral, flexion and extension were obtained. Concavity at the superior endplate of L4 was also present previously, likely related to Schmorl's node. There are no developing fractures. No displacement or instability is seen. No disproportionate disc space narrowing is present. There is minor endplate spurring and lower lumbar facet disease. The SI joints, as visualized are intact. There is minimal atherosclerotic plaque at the aorta. XR/XR lumbar spine min 4V IMPRESSION: MILD DEGENERATIVE CHANGES NO ACUTE BONY FINDINGS. Impression dictated by: Allyn Contreras M.D.10/10/2024 12:41 PM Dictation Location: [place] [address] Electronically authenticated by: [id number] Y Date: 10/10/2024 12:41
== END 2024-10-10 11:19 | disposition home or self-care (01) ==
LOC: EC 11:19
PROVIDERS: PCP Family Medicine; Visit Provider Orthopaedic Surgery Orthopaedic Surgery of the Spine
DX: M54.50 Low back pain, unspecified (principal); M51.369 Other intervertebral disc degeneration, lumbar region without mention of lumbar back pain or lower extremity pain; E11.65 Type 2 diabetes mellitus with hyperglycemia; I10 Essential (primary) hypertension; Z79.899 Other long term (current) drug therapy; E78.5 Hyperlipidemia, unspecified
CPT/HCPCS: 36415; 72110; 80048; 80061; 80076; 82043; 82570; 83036; 85025

== ENCOUNTER 2024-10-10 12:21 | Outpatient (OUT) | payer OTHER, MEDICARE, SELFPAY ==
[2024-10-10 13:00] LABS: Basophils Absolute Auto 0.1 10^3/uL (0.0-0.1); Basophils Percent Auto 0.5 % (0.2-2.0); Eosinophils Absolute Auto 0.3 10^3/uL (0.0-0.7); Eosinophils Percent Auto 2.9 % (0.9-7.0); Hematocrit 40.1 % (36.0-48.0); Immature Granulocytes Abs Auto 0.11 10^3/uL (0.00-0.03); Immature Granulocytes Pct Auto 1.1 % (0.0-0.5); Lymphocytes Absolute Auto 1.4 10^3/uL (1.2-3.8); Lymphocytes Percent Auto 12.9 % (20.5-60.0); Mean Corpuscular HGB Conc 32.4 g/dL (29.9-35.2); Mean Corpuscular Hemoglobin 28.8 pg (26.7-34.0); Mean Corpuscular Volume 88.9 fL (81.0-99.0); Mean Platelet Volume 8.9 fL (9.5-13.5); Monocytes Absolute Auto 1.5 10^3/uL (0.3-0.8); Monocytes Percent Auto 14.3 % (1.7-12.0); Neutrophils Absolute Auto 7.1 10^3/uL (1.4-6.5); Neutrophils Percent Auto 68.3 % (43.0-75.0); Platelet Count 456 10^3/uL (150-450); Red Blood Count 4.51 10^6/uL (4.20-5.40); Red Cell Distribution Width 13.8 % (11.0-15.0); White Blood Count 10.4 10^3/uL (4.0-11.0)
[2024-10-10 13:31] LABS: Alanine Aminotransferase 15 U/L (14-59); Albumin Globulin Ratio 0.8; Albumin Level 2.9 g/dL (3.4-5.0); Alkaline Phosphatase 84 U/L (46-116); Anion Gap 10.8; Aspartate Amino Transferase 17 U/L (15-37); BUN Creatinine Ratio 11.7; Bilirubin Direct 0.1 mg/dL (0.0-0.2); Bilirubin Total 0.3 mg/dL (0.2-1.0); Calcium 9.7 mg/dL (8.5-10.1); Carbon Dioxide 28.5 mmol/L (21.0-32.0); Chloride 99 mmol/L (98-107); Chol HDL Ratio 2.4; Cholesterol 146 mg/dL (<=200); Estimated GFR (African America 41 (>=60 mL/min/1.73m^2); Estimated GFR (Non-African Ame 34 (>=60 mL/min/1.73m^2); Globulin 3.6 g/dL; Glucose 113 mg/dL (74-106); HDL Cholesterol 61 mg/dL (40-60); Potassium 3.3 mmol/L (3.5-5.1); Sodium 135 mmol/L (136-145); Total Protein 6.5 g/dL (6.4-8.2); Triglycerides 118 mg/dL (<=150); VLDL CHOLESTEROL 23.6 mg/dL
[2024-10-10 14:35] LABS: Estimated Average Glucose 137 mg/dL; Glycohemoglobin A1C 6.4 % (4.5-6.2)
[2024-10-10 16:04] LABS: Creatinine Urine Random 139.77 mg/dL (20.00-300.00); Microalbum Creatinine Ratio Ur 67.2 mg/g (0.0-29.9); Microalbumin Urine Random 9.4 mg/dL (<=30.0)
== END 2024-10-10 12:22 | disposition home or self-care (01) ==
LOC: LAB 12:21
PROVIDERS: PCP Family Medicine; Visit Provider Family Medicine
DX: E11.65 Type 2 diabetes mellitus with hyperglycemia (principal); I10 Essential (primary) hypertension; Z79.899 Other long term (current) drug therapy; E78.5 Hyperlipidemia, unspecified
CPT/HCPCS: 36415; 80048; 80061; 80076; 82043; 82570; 83036; 85025

== ENCOUNTER 2024-10-27 12:23 | Outpatient (OUT) | payer OTHER, MEDICARE, SELFPAY ==
--- NOTE | 2024-10-27 12:27 | MR_ITS ---
[address] [address] Patient Name: SANDRA Easton COVERT MRN: [facility]:[id number] date: 1955 Sex: F Assigned Patient Location: MRI Current Patient Location: MRI Accession/Order Number: [id number] Exam Date: 10/27/2024 14:11 Report Date: 10/27/2024 14:23 At the request of: MICAELA ALANIZ MD Procedure: MR lumbar spine wo con MRI Lumbar Spine withoutcontrast TECHNIQUE: Multiplanar T1 and T2-weighted imaging of lumbar spine obtained without contrast. HISTORY: T12 compression fracture. Chronic bilateral leg weakness COMPARISON: 05/25/2023 The last fully segmented vertebral pair is operationally defined as L5/S1. POST SURGERY CHANGES: None BONE MARROW INFILTRATION: None BONE MARROW EDEMA: None BONY ALIGNMENT: Adequate bony alignment identified. SPINAL CANAL: No significant central canal narrowing. LUMBAR FRACTURE: T12 compression fracture redemonstrated. Developing L4 central superior endplate compression deformity present. No associated bone marrow edema. Similar L1 superior endplate central compression deformity chronic remote. BONY LESIONS: None KIDNEYS: No hydronephrosis is identified. AORTA: No aortic aneurysm is seen. CONUS MEDULLARIS : There is effacement of the distal portion of the spinal cord secondary to the retropulsion of bony fracture at the superior T12 level. No cord edema or hemorrhage identified. Additional findings CONJOINED NERVE ROOT: None Lower thoracic level: Unremarkable L1-2 :Mild disc bulge. Small left foraminal disc protrusion. Concavity of the anterior thecal sac. Mild central canal stenosis. Posterior element hypertrophy. Patent neural foramen L2-3: Adequate disc height. Patent central canal and neural foramen. Mild posterior element hypertrophy. L3-4:Mild disc space narrowing. Diffuse disc bulge. Mild central canal stenosis. Posterior element hypertrophy. Moderate left and hray-[id number] right neural foraminal narrowing L4-5: Adequate disc height. Mild diffuse disc bulge. Flattening of anterior thecal sac. Mild central canal stenosis. Posterior element hypertrophy. Mild bilateral neural foraminal narrowing L5-S1: Adequate disc height. Patent central canal and neural foramen. Posterior element hypertrophy MR/MR lumbar spine wo con IMPRESSION: Mild progression of retropulsion of T12 superior compression fracture with effacement of the distal cord. No cord edema or hemorrhage. Similar multilevel discovertebral degenerative changes. Development of chronic L4 superior plate compression deformity. Pre-MRI plain film assessment: None Impression dictated by: Enmanuel Mar M.D.10/27/2024 2:23 PM Dictation Location: [place] [address] Electronically authenticated by: [id number] Y Date: 10/27/2024 14:23
== END 2024-10-27 12:24 | disposition home or self-care (01) ==
LOC: MRI 12:24
PROVIDERS: PCP Family Medicine; Visit Provider Orthopaedic Surgery Orthopaedic Surgery of the Spine
DX: R29.898 Other symptoms and signs involving the musculoskeletal system (principal); M79.605 Pain in left leg; M47.9 Spondylosis, unspecified; M54.16 Radiculopathy, lumbar region; M48.54XA Collapsed vertebra, not elsewhere classified, thoracic region, initial encounter for fracture
CPT/HCPCS: 72148

== ENCOUNTER 2024-11-10 12:43 | Emergency (ER) | payer OTHER, MEDICARE, SELFPAY ==
[2024-11-10 12:53] VITALS: BP 144/82; PULSE 111; TEMP 36.8; O2SAT 94; BMI 16.6
--- NOTE | 2024-11-10 13:05 | ECG_ITS ---
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 Measurements Intervals Donalds Rate: 111 P: 81 CA: 142 QRS: 84 QRSD: 88 T: 90 QT: 294 QTc: 359 Interpretive Statements 1120 Sinus tachycardia 4364 Twave abnormality, possible anterolateral ischemia 7300 Indeterminate axis 8305 Short QTc interval 9150 abnormal ECG Compared to ECG 07/07/2024 12:16:24 Possible ischemia now present Indeterminate axis now present Electronically Signed On 11-10-2024 17:57:30 EDT by JER VANG M.D.
[2024-11-10 13:06] VITALS: PULSE 111; O2SAT 94
--- NOTE | 2024-11-10 13:07 | ED.SOB1 ---
HPI - SOB/Dyspnea General Chief Complaint: Shortness of Breath/Dyspnea Stated Complaint: SOB HTN TACHY LT SHOLDER PAIN Time Seen by Provider: 11/10/24 13:00 Source: patient and family Mode of arrival: Wheelchair Limitations: no limitations History of Present Illness HPI Narrative: 69 year old female presents to the ED for cough, SOB, body aches, fatigue. Onset was 2-3 days ago. She has hx COPD. Denies fever, chills, CP, dizziness, edema, N/V/D. Reports her BP was elevated this morning as well. She has increased sputum production which is green in color. She has been using her inhalers, but not her nebulizer. Related Data Home Medications ?Medication ?Instructions ?Recorded ?Confirmed aspirin 81 mg tablet,delayed 81 mg PO DAILY 03/06/23 11/10/24 release atorvastatin 40 mg tablet 40 mg PO .QHS 03/06/23 11/10/24 melatonin 5 mg tablet 5 mg PO .QHS 03/06/23 07/07/24 pregabalin 100 mg capsule (Lyrica) 100 mg PO TID 03/06/23 11/10/24 albuterol sulfate 90 mcg/actuation 2 puff inhalation Q4H PRN 12/18/23 11/10/24 aerosol inhaler shortness of breath or wheezing cholecalciferol (vitamin D3) 50 50 mcg PO DAILY 02/14/24 11/10/24 mcg (2,000 unit) capsule cranberry 500 mg capsule 500 mg PO DAILY 02/14/24 07/07/24 ferrous sulfate 325 mg (65 mg 325 mg PO DAILY 02/14/24 07/07/24 iron) tablet glipizide 5 mg tablet 5 mg PO DAILY 06/26/24 07/07/24 prednisone 5 mg tablet 10 mg PO DAILY 11/10/24 11/10/24 tiotropium 2.5 mcg-olodaterol 2.5 2 puff inhalation DAILY 11/10/24 11/10/24 mcg/actuation mist for inhalation (Stiolto Respimat) Previous Rx's ?Medication ?Instructions ?Recorded ipratropium 0.5 mg-albuterol 3 mg 3 ml inhalation Q6H PRN shortness 06/27/24 (2.5 mg base)/3 mL nebulization of breath or wheezing 30 days #1 soln kit oxycodone-acetaminophen 5 mg-325 1 tab PO Q6H PRN pain 5 days #20 09/26/ mg tablet (Percocet) tabs doxycycline monohydrate 100 mg 100 mg PO BID 7 days #14 caps 11/10/24 capsule prednisone 10 mg tablet See Rx Instructions .Route 11/10/24 .COMPLEX #30 tabs Allergies Allergy/AdvReac Type Severity Reaction Status Date / Time azithromycin (From Zithromax Allergy Severe Unknown Verified 02/18/24 18:30 Z-Leonardo) Latex, Natural Rubber Allergy Severe Unknown Verified 02/18/24 18:30 Review of Systems ROS Constitutional Reports: fatigue; Denies: fever or chills Ears, nose, mouth, and throat Denies: throat pain, neck pain, nasal discharge or nasal congestion Cardiovascular Denies: chest pain Respiratory Reports: shortness of breath and cough Gastrointestinal Denies: abdominal pain, nausea, vomiting or diarrhea Genitourinary Denies: painful urination Musculoskeletal Reports: extremity pain; Denies: back pain, neck pain or extremity swelling Integumentary/Breast Denies: rash Neurological Denies: headache, numbness in extremities, weakness in extremities or dizziness [facility] Medical History Right lower lobe pneumonia ?J18.9 - Pneumonia, unspecified organism (ICD-10) Acute pyelonephritis ?N10 - Acute pyelonephritis (ICD-10) Sepsis ?A41.9 - Sepsis, unspecified organism (ICD-10) Immunosuppressed status ?D84.9 - Immunodeficiency, unspecified (ICD-10) Chronic steroid use Temporal arteritis ?M31.6 - Other giant cell arteritis (ICD-10) CKD stage 3b, GFR 30-44 ml/min ?N18.32 - Chronic kidney disease, stage 3b (ICD-10) Chronic respiratory failure with hypoxia ?J96.11 - Chronic respiratory failure with hypoxia (ICD-10) History of tobacco abuse ?Z87.891 - Personal history of nicotine dependence (ICD-10) CAD (coronary artery disease) ?I25.10 - Atherosclerotic heart disease of [place] coronary artery without angina pectoris (ICD-10) Essential hypertension ?I10 - Essential (primary) hypertension (ICD-10) Type 2 diabetes mellitus with hyperglycemia ?E11.65 - Type 2 diabetes mellitus with hyperglycemia (ICD-10) Polymyalgia rheumatica ?M35.3 - Polymyalgia rheumatica (ICD-10) Non-ST elevated myocardial infarction (non-STEMI) ?I21.4 - Non-ST elevation (NSTEMI) myocardial infarction (ICD-10) Hyperlipidemia ?E78.5 - Hyperlipidemia, unspecified (ICD-10) Hyperglycemia, drug-induced ?R73.9 - Hyperglycemia, unspecified (ICD-10) ?T50.905A - Adverse effect of unspecified drugs, medicaments and biological substances, initial encounter (ICD-10) COPD (chronic obstructive pulmonary disease) ?J44.9 - Chronic obstructive pulmonary disease, unspecified (ICD-10) Depression ?F32.A - Depression, unspecified (ICD-10) Acid reflux ?K21.9 - Gastro-esophageal reflux disease without esophagitis (ICD-10) Nerve pain ?M79.2 - Neuralgia and neuritis, unspecified (ICD-10) Back pain ?M54.9 - Dorsalgia, unspecified (ICD-10) Thoracotomy scar of right chest ?L90.5 - Scar conditions and fibrosis of skin (ICD-10) History of oxygen administration ?Z99.81 - Dependence on supplemental oxygen (ICD-10) UTI (urinary tract infection), bacterial ?N39.0 - Urinary tract infection, site not specified (ICD-10) ?A49.9 - Bacterial infection, unspecified (ICD-10) Urethral stenosis Surgical History Status post bilateral cataract extraction ?Z98.41 - Cataract extraction status, right eye (ICD-10) ?Z98.42 - Cataract extraction status, left eye (ICD-10) 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 [part of] (ICD-10) Stented coronary artery ?Z95.5 - Presence of coronary angioplasty implant and graft (ICD-10) Family History Mother Family history of COPD (chronic obstructive pulmonary disease) Brother Family history of COPD (chronic obstructive pulmonary disease) Father Family history of COPD (chronic obstructive pulmonary disease) Family history of stroke Social History Within the past year, how often did you have a drink containing alcohol: never Within the past year, how many standard drinks containing alcohol did you have on a typical day: 1 or 2 Within the past year, how often did you have six or more drinks on one occasion: never Total score: 0 Score interpretation: A score less than 3 is consistent with normal alcohol consumption. Smoking status: Former smoker Non-prescribed substance use: denies use Previous occupational history: disabled Highest level of school completed/degree received: Associate degree: academic program Are you now , , , , never or living with a partner: Little interest or pleasure in doing things: several days Feeling down, depressed, or hopeless: not at all Feel stressed/tense/nervous/anxious/difficulty sleeping: only a little Do you think of yourself as: straight/heterosexual Gender Identity: female Exam Constitutional Vital Signs, click to edit/add: Last Vital Signs Temp 98.3 F 11/10/24 12:53 Pulse 94 H 11/10/24 15:36 Resp 18 11/10/24 15:36 BP 148/78 H 11/10/24 15:36 Pulse Ox 98 11/10/24 15:36 O2 Del Method Room Air 11/10/24 15:36 Common normals: no apparent distress and oriented x3 General appearance: cooperative; not in distress HENLA Common normals: moist oral mucous membranes Face and sinus: normal facial exam External ear: external ears normal Mouth: oral and palatal mucosa normal and lip normal Eye Common normals: conjunctivae normal and no scleral icterus Neck & C-Spine Common normals: supple and no meningeal signs Chest Chest: symmetrical chest wall rise Respiratory Common normals: normal respiratory effort and no use of accessory muscles Effort & inspection: able to speak in complete sentences and symmetric chest movement Auscultation: rhonchi and diminished lung sounds bilateral in the lower lung conrad Cardio Common normals: regular rhythm Rate: tachycardic Peripheral pulses: pulses 2+ throughout GI Common normals: soft to palpation and non-tender Extremity Common normals: normal capillary refill and no pedal edema Other: Moves extremities. No tenderness to shoulders or legs. No obvious deformity noted. No swelling noted. Neuro Common normals: oriented x3, moves all extremities and no focal motor deficits Sensorium/orientation: awake and alert Speech: speech normal Course Vital Signs Vital signs: Vital Signs Temperature 98.3 F 11/10/24 12:53 Pulse Rate 111 H 11/10/24 12:53 Respiratory Rate 18 11/10/24 12:53 Blood Pressure 144/82 H 11/10/24 12:53 Pulse Oximetry 94 L 11/10/24 12:53 Oxygen Delivery Method Room Air 11/10/24 12:53 Temperature 98.3 F 11/10/24 12:53 Pulse Rate 94 H 11/10/24 15:36 Respiratory Rate 18 11/10/24 15:36 Blood Pressure 148/78 H 11/10/24 15:36 Pulse Oximetry 98 11/10/24 15:36 Oxygen Delivery Method Room Air 11/10/24 15:36 MDM - SOB/Dyspnea MDM Narrative Medical decision making narrative: Chest x-ray was negative for acute findings. Covid-19 was negative. WBC count was 14.7. Findings were discussed. She was not requiring oxygen here. The patient reported improvement here with albuterol via nebulizer and solumedrol. She was comfortable being discharged home. Prescriptions were provided for prednisone and doxycycline. She was encouraged to use her nebulizer at home as directed. Follow up with pcp for a recheck, further evaluation and treatment. Differential Diagnosis Differential diagnosis: Likely acute exacerbation of chronic obstructive airways disease, congestive heart failure and community acquired pneumonia Medical Records Attestation: I reviewed the patient's medical records. Lab Data Attestation: I reviewed the patient's lab results. Labs: Lab Results 11/10/24 11/10/24 11/10/24 Range/Units 13:00 13:13 14:30 WBC 14.7 H (4.0-11.0) 10^3/uL RBC 4.80 (4.20-5.40) 10^6/uL Hgb 13.7 (12.0-16.0) g/dL Hct 42.0 (36.0-48.0) % MCV 87.5 (81.0-99.0) fL MCH 28.5 (26.7-34.0) pg MCHC 32.6 (29.9-35.2) g/dL RDW 13.8 (11.0-15.0) % Plt Count 351 (150-450) 10^3/uL MPV 9.2 L (9.5-13.5) fL Neut % (Auto) 86.2 H (43.0-75.0) % Lymph % (Auto) 5.3 L (20.5-60.0) % Wilkes % (Auto) 7.5 (1.7-12.0) % Eos % (Auto) 0.4 L (0.9-7.0) % Baso % (Auto) 0.3 (0.2-2.0) % Neut # (Auto) 12.6 H (1.4-6.5) 10^3/uL Lymph # (Auto) 0.8 L (1.2-3.8) 10^3/uL Wilkes # (Auto) 1.1 H (0.3-0.8) 10^3/uL Eos # (Auto) 0.1 (0.0-0.7) 10^3/uL Baso # (Auto) 0.0 (0.0-0.1) 10^3/uL Abs Immat Gran (auto) 0.05 H (0.00-0.03) 10^3/uL Imm/Tot Granulo (auto) 0.3 (0.0-0.5) % Sodium 135 L (136-145) mmol/L Potassium 3.8 (3.5-5.1) mmol/L Chloride 98 (98-107) mmol/L Carbon Dioxide 22.3 (21.0-32.0) mmol/L Anion Gap 18.5 BUN 18.0 (7.0-18.0) mg/dL Creatinine 1.02 (0.55-1.02) mg/dL Est GFR ( Amer) >60 (>=60 mL/min/1.73m^2) Est GFR (Non-Af Amer) 54 L (>=60 mL/min/1.73m^2) BUN/Creatinine Ratio 17.6 Glucose 97 (74-106) mg/dL Calcium 11.6 H (8.5-10.1) mg/dL Total Bilirubin 0.6 (0.2-1.0) mg/dL AST 15 (15-37) U/L ALT 12 L (14-59) U/L Alkaline Phosphatase 76 (46-116) U/L Troponin I High Sens 8.7 9.3 (4.0-51.3) pg/mL NT-Pro-B Natriuret Pep 189.0 (<=900.0) pg/mL Total Protein 7.2 (6.4-8.2) g/dL Albumin 3.4 (3.4-5.0) g/dL Globulin 3.8 g/dL Albumin/Globulin Ratio 0.9 SARS-CoV-2 Ag (CV2AG) Negative (NEGATIVE) Imaging Data Chest x-ray: Attestation: I have reviewed the pertinent imaging results. Radiologist's impression: 1. Mild right lung base reticulation. 2. No pulmonary edema, pleural effusion, or pneumothorax. ECG Data Attestation: ?I have reviewed the pertinent ECG results. (EKG was reviewed by the attending physician. It showed sinus tachycardia at a rate of 111. No acute ST segment changes. ) Interpretation: Measurements Intervals [place] Rate: 111 P: 81 NM: 142 QRS: 84 QRSD: 88 T: 90 QT: 294 QTc: 359 Interpretive Statements 1120 Sinus tachycardia 4364 Twave abnormality, possible anterolateral ischemia 7300 Indeterminate axis 8305 Short QTc interval 9150 abnormal ECG No previous ECG available for comparison Discharge Plan Discharge Chief Complaint: Shortness of Breath/Dyspnea Clinical Impression: COPD exacerbation Patient Disposition: Home, Self-Care Time of Disposition Decision: 15:06 Condition: Good Mode of Transportation: Private Vehicle Prescriptions / Home Meds: New prednisone 10 mg tablet See Rx Instructions .ROUTE .COMPLEX Qty: 30 0RF Rx Instructions: Take 5 tablets on days 1-2, 4 tabs on days 3-4, 3 tabs on days 5-6, 2 tabs on days 7-8, 1 tab on days 9-10. doxycycline monohydrate 100 mg capsule 100 mg PO BID 7 Days Qty: 14 0RF No Action atorvastatin 40 mg tablet 40 mg PO .QHS aspirin 81 mg tablet,delayed release (DR/EC) 81 mg PO DAILY melatonin 5 mg tablet 5 mg PO .QHS pregabalin [Lyrica] 100 mg capsule 100 mg PO TID ferrous sulfate 325 mg (65 mg iron) tablet 325 mg PO DAILY cranberry 500 mg capsule 500 mg PO DAILY Rx Instructions: administer with a meal cholecalciferol (vitamin D3) 50 mcg (2,000 unit) capsule 50 mcg PO DAILY glipizide 5 mg tablet 5 mg PO DAILY ipratropium-albuterol 0.5 mg-3 mg(2.5 mg base)/3 mL Solution For Nebulization 3 ml inhalation Q6H PRN (Reason: shortness of breath or wheezing) 30 Days Qty: 1 0RF Rx Instructions: please dispense #1 box albuterol sulfate 90 mcg/actuation HFA aerosol inhaler 2 puff INHALATION Q4H PRN (Reason: shortness of breath or wheezing) oxycodone-acetaminophen [Percocet] 5-325 mg tablet 1 tab PO Q6H PRN (Reason: pain) 5 Days Qty: 20 0RF prednisone 5 mg tablet 10 mg PO DAILY Stiolto Respimat 2.5-2.5 mcg/actuation mist 2 puff INHALATION DAILY Print Language: Georgian Instructions: COPD (Chronic Obstructive Pulmonary Disease) (ED) Additional Instructions: Return to the ER for worsening symptoms. Referrals: Erasto Henry MD [Primary Care Provider, Family Practice] - 1 week Discharge Date/Time: 11/10/24 16:01
[2024-11-10 13:13] LABS: Basophils Percent Auto 0.3 % (0.2-2.0); Eosinophils Absolute Auto 0.1 10^3/uL (0.0-0.7); Eosinophils Percent Auto 0.4 % (0.9-7.0); Hemoglobin 13.7 g/dL (12.0-16.0); Immature Granulocytes Abs Auto 0.05 10^3/uL (0.00-0.03); Immature Granulocytes Pct Auto 0.3 % (0.0-0.5); Lymphocytes Absolute Auto 0.8 10^3/uL (1.2-3.8); Lymphocytes Percent Auto 5.3 % (20.5-60.0); Mean Corpuscular HGB Conc 32.6 g/dL (29.9-35.2); Mean Corpuscular Hemoglobin 28.5 pg (26.7-34.0); Mean Corpuscular Volume 87.5 fL (81.0-99.0); Mean Platelet Volume 9.2 fL (9.5-13.5); Monocytes Absolute Auto 1.1 10^3/uL (0.3-0.8); Monocytes Percent Auto 7.5 % (1.7-12.0); Neutrophils Absolute Auto 12.6 10^3/uL (1.4-6.5); Neutrophils Percent Auto 86.2 % (43.0-75.0); Platelet Count 351 10^3/uL (150-450); Red Cell Distribution Width 13.8 % (11.0-15.0); White Blood Count 14.7 10^3/uL (4.0-11.0)
[2024-11-10] MEDS: ONDANSETRON PF 4 MG/2 ML VIAL IV (13:13)
[2024-11-10] MEDS: METHYLPREDNISOLONE SOD SUCC PF 125 MG/2 ML VIAL IVP (13:15)
[2024-11-10] MEDS: MORPHINE SULFATE 2 MG/ML SYRINGE IV (13:16)
[2024-11-10 13:30] LABS: Alanine Aminotransferase 12 U/L (14-59); Albumin Globulin Ratio 0.9; Albumin Level 3.4 g/dL (3.4-5.0); Alkaline Phosphatase 76 U/L (46-116); Anion Gap 18.5; Aspartate Amino Transferase 15 U/L (15-37); BUN Creatinine Ratio 17.6; Bilirubin Total 0.6 mg/dL (0.2-1.0); Calcium 11.6 mg/dL (8.5-10.1); Carbon Dioxide 22.3 mmol/L (21.0-32.0); Chloride 98 mmol/L (98-107); Estimated GFR (African America >60 (>=60 mL/min/1.73m^2); Estimated GFR (Non-African Ame 54 (>=60 mL/min/1.73m^2); Globulin 3.8 g/dL; Glucose 97 mg/dL (74-106); Potassium 3.8 mmol/L (3.5-5.1); Sodium 135 mmol/L (136-145); Total Protein 7.2 g/dL (6.4-8.2)
[2024-11-10 13:33] LABS: Internal Control Within Normal Limits; SARS-CoV-2 Ag NEGATIVE (NEGATIVE)
[2024-11-10 13:37] LABS: Troponin I High Sensitivity 8.7 pg/mL (4.0-51.3)
[2024-11-10] MEDS: ALBUTEROL SULFATE 2.5 MG/3 ML VIAL NEB IH (14:08)
[2024-11-10 14:09] VITALS: BP 138/88; PULSE 94; O2SAT 94
[2024-11-10 14:52] LABS: Troponin I High Sensitivity 9.3 pg/mL (4.0-51.3)
[2024-11-10 15:36] VITALS: BP 148/78; PULSE 94; O2SAT 98
--- NOTE | 2024-11-10 15:42 | RESP.RT ---
Done per nursing
== END 2024-11-10 16:01 | disposition home or self-care (01) ==
PROVIDERS: Nurse Practitioner Family; Emergency Provider Student in an Organized Health Care Education/Training Program; PCP Family Medicine
DX: J44.1 Chronic obstructive pulmonary disease with (acute) exacerbation (principal); R06.02 Shortness of breath; Z90.2 Acquired absence of lung [part of]; Z95.5 Presence of coronary angioplasty implant and graft; Z87.891 Personal history of nicotine dependence
CPT/HCPCS: 36415; 71045; 80053; 83880; 84484; 85025; 87811; 93005; 94640; 96374; 96375; 99285; J2270; J2405; J2919

== ENCOUNTER 2024-12-02 10:47 | Outpatient (OUT) | payer OTHER, MEDICARE, SELFPAY ==
--- OUTSIDE RECORDS SUMMARY | 2024-11-20 10:45 | XMS_ITS | Encounter Summary ---
Author Organization [facility] Address [address] [place] [address] Care Team Providers Care Hotel Maintenance Worker Name Role Phone Erasto Henry MD Primary Care Provider [phone] Reason for Referral * Consultation (Routine) - Authorized Specialty Diagnoses / Procedures Referred By Contac t Referred To Contact Neurology Diagnoses Degeneration of intervertebral disc of lumbar region with discogenic back pain and lower extremity pain Lumbar radiculopathy Numbness Bilateral leg weakness Procedures UT OFFICE/OUTPATIENT [facility] HIGH MDM 60 MINUTES Erasto Henry MD [address] [place] [address] Phone: tel: fax: Greg Layne MD [address] [place] [address] Phone: tel: fax: Referral ID Status Reason Start Date Expiration Date Visits Requested Visits Authorized [id number] Authorized Specialty Services Required 11/20/2024 05/19/2025 1 1 * Other Medical (Routine) - Authorized Specialty Diagnoses / Procedures Referred By Contac t Referred To Contact Neurology Diagnoses Numbness Leg pain, left Leg pain, right Bilateral leg weakness Procedures EMG AND NERVE CONDUCTION STUDY Erasto Henry MD [address] [place] [address] Phone: tel: fax: Pedro Pablo Thomas MD [address] [place] [address] Phone: tel: fax: Referral ID Status Reason Start Date Expiration Date V isits Requested Visits Authorized [id number] Authorized 11/20/2024 05/19/2025 1 1 Reason for Visit * Reason Comments Follow-up Er f/up tbh SOB Encounter Details Date Type Department Care Team (Late st Contact Info) Description 11/20/2024 10:45 AM EDT [facility] [address] [place] [address] Erasto Henry MD [address] [place] [id number] Bullous emphysema (CMS/HCC) (Primary Dx); Degeneration of intervertebral disc of lumbar region with discogenic back pain and lower extremity pain; Lumbar radiculopathy; Numbness; Leg pain, left; Leg pain, right; Bilateral leg weakness Social History Tobacco Use Types Packs/Day Years Used Date Smoking Tobacco: Former Cigarettes 2 40 0 03/06/1982 - 03/06/2022 Smokeless Tobacco: Never Alcohol Use Standard Drinks/Week Comments Not Currently 0 (1 standard drink = 0.6 oz pur e alcohol) caffine-2 cups daily Comments Unknown Sex and Gender Information Value Date Recorded Sex Assigned at Not on file Legal Sex Female 6:41 PM EDT Gender Identity Not on file Sexual Orientation Not on file documented as of this encounter Last Filed Vital Signs Vital Sign Reading Time Taken Comments Blood Pressure 158/60 11/20/2024 10:50 AM EDT Pulse 94 11/20/2024 10:50 AM EDT Temperature 36.2 C (97.1 F) 11/20/2024 10:50 AM EDT Respiratory Rate 24 11/20/2024 10:50 AM EDT Oxygen Saturation 96% 11/20/2024 10:50 AM EDT Inhaled Oxygen Concentration - - Weight 42.2 kg (93 lb) 11/20/2024 10:50 AM EDT Height 165.1 cm (5' 5 ) 11/20/2024 10:50 AM EDT Body Mass Index 15.48 11/20/2024 10:50 AM EDT documented in this encounter Progress Notes * Erasto Henry MD - 11/20/2024 12:26 PM EDTAssociated Problem(s): Lumbar radiculopathy Continued pain and weakness in leg. Severe radicular symptoms. Check EMG. Not scheduled with neurology until January and try to refer to different location. Stop lyrica and start neurontin. Use percocetPRN. * Erasto Henry MD - 11/20/2024 12:26 PM EDTAssociated Problem(s): Degeneration of intervertebral disc of lumbar region with discogenic back pain and lower extremity pain Continued pain and weakness in leg. Severe radicular symptoms. Check EMG. Not scheduled with neurology until January and try to refer to different location. Stop lyrica and start neurontin. Use percocetPRN. * Erasto Henry MD - 11/20/2024 12:25 PM EDTAssociated Problem(s): Bullous emphysema (CMS/HCC) Recent exacerbation but improved. Continue inhalers and follow with pulmonology. * Erasto Henry MD - 11/20/2024 10:45 AM EDT Images from the original note were not included. Subjective Patient ID: Lise Garcia is a 69 y.o. female who presents for Follow-up (Er f/up tbh SOB ). ER follow up from 11/10 for COPD exacerbation. Developed increased SOB and fatigue with activity. Frequent cough productive green sputum. In ER normal SpO2 on room air and chest x-ray normal. Given prednisone and doxy. Improved and back to baseline. Mild SOB and cough. Continues to have severe pain. Pain in low back and across top hips. Pain into left hip and left leg. Severe weakness in left leg and hard to lift leg. Not able to walk and very difficult to stand. Severe numbness and tingling in hip and leg. MRI showed degenerative changes. Seen by surgeon and felt not pinching nerves. Referred to neurology. Still on lyrica but not helping. Percocet PRN helps. Review of Systems Respiratory: Negative for cough, [...] Assessment/Plan Problem List Items Addressed This Visit Bullous emphysema (CMS/HCC) - Primary Recent exacerbation but improved. Continue inhalers and follow with pulmonology. Lumbar radiculopathy Continued pain and weakness in leg. Severe radicular symptoms. Check EMG. Not scheduled with neurology until January and try to refer to different location. Stop lyrica and start neurontin. Use percocetPRN. Relevant Orders Ambulatory referral to Neurology Degeneration of intervertebral disc of lumbar region with discogenic back pain and lower extremity pain Continued pain and weakness in leg. Severe radicular symptoms. Check EMG. Not scheduled with neurology until January and try to refer to different location. Stop lyrica and start neurontin. Use percocetPRN. Relevant Medications gabapentin (Neurontin) 300 MG capsule oxyCODONE-acetaminophen (Percocet) 5-325 MG tablet Other Relevant Orders Ambulatory referral to Neurology Other Visit Diagnoses Numbness Relevant Orders EMG AND NERVE CONDUCTION STUDY Ambulatory referral to Neurology Leg pain, left Relevant Orders EMG AND NERVE CONDUCTION STUDY Leg pain, right Relevant Orders EMG AND NERVE CONDUCTION STUDY Bilateral leg weakness Relevant Orders EMG AND NERVE CONDUCTION STUDY Ambulatory referral to Neurology documented in this encounter Plan of Treatment Upcoming Encounters Date Type Department Care Team (Late st Contact Info) Description 12/12/2024 1:15 PM EDT Procedure Visit [facility] [address] [facility] [address] [place] [address] Pedro Pablo Thomas MD [address] [facility] [address] [place], [place] [id number] 01/08/2025 12:45 PM EDT Office Visit [facility]LE GUEVARA [address] [place] [address] June Beck, [address] [place] [address] 01/12/2025 1:45 PM EDT [facility] [address] [place] [phone] Erasto Henry MD [address] [place] [address] Scheduled Orders Name Type Priority Associated Diagnoses Orde r Schedule EMG AND NERVE CONDUCTION STUDY Neurology Routine Numbness Leg pain, left Leg pain, right Bilateral leg weakness Expected: 11/20/2024 (Approximate), Expires: 11/20/2025 Scheduled Referrals Name Type Priority Associated Diagnoses Orde r Schedule Ambulatory referral to Neurology Outpatient Referral Routine Degeneration of intervertebral disc of lumbar region with discogenic back pain and lower extremity pain Lumbar radiculopathy Numbness Bilateral leg weakness Expected: 11/20/2024 (Approximate), Expires: 05/23/2025 documented as of this encounter Visit Diagnoses Diagnosis Bullous emphysema (CMS/HCC)- Primary Degeneration of intervertebral disc of lumbar region with discogenic back pain and lower extremity pain Lumbar radiculopathy Thoracic or lumbosacral neuritis or radiculitis, unspecified Numbness Disturbance of skin sensation Leg pain, left Pain in soft tissues of limb Leg pain, right Pain in soft tissues of limb Bilateral leg weakness Muscle weakness (generalized) documented in this encounter Care Teams Hotel Maintenance Worker Relationship Specialty Start Date End Date Erasto Henry MD [address] [place] [address] PCP - General Family Medicine 02/21/24 documented as of this encounter
--- OUTSIDE RECORDS SUMMARY | 2024-12-02 10:52 | XMS_ITS | Clinical Summary ---
Author Organization [facility] Address [address] [place] [address] Care Team Providers Care Car Knocker Name Role Phone Erasto Henry MD Primary Care Provider [phone] Allergies Active Allergy Reactions Criticality Noted Date Comments Latex Hives 06/12/2023 Azithromycin Hives 06/12/2023 Medications tiotropium-olodat linus (Stiolto Respimat) 2.5-2.5 MCG/ACT aerosol solution inhaler 1 (one) time each day at the same time 025 Active guaiFENesin (Mucinex) 600 MG 12 hr tablet Take 1,200 mg by mouth in the morning and 1,200 mg before bedtime. 025 Active ibuprofen 200 MG tablet Take by mouth Active acetaminophen (Tylenol) 500 MG tablet Take by mouth Active gabapentin (Neurontin) 300 MG capsuleIndication s:Degeneration of intervertebral disc of lumbar region with discogenic back pain and lower extremity pain Take 1 capsule (300 mg) by mouth in the morning and 1 capsule (300 mg) in the evening and 1 capsule (300 mg) before bedtime. 90 capsule 2 025 Active oxyCODONE-acetami nophen (Percocet) 5-325 MG tabletIndications :Degeneration of intervertebral disc of lumbar region with discogenic back pain and lower extremity pain Take 1 tablet by mouth 4 (four) times a day as needed for severe pain or moderate pain for up to 7 days 28 tablet 025 2024 Active arginine 500 MG tablet Take 1 tablet by mouth every 12 (twelve) hours 023 2024 Discontinued DULoxetine (Cymbalta) [address] capsule Take 3 capsules by mouth in the morning. 023 2024 Discontinued metoprolol tartrate (Lopressor) 25 MG tablet Take 0.5 tablets by mouth in the morning and 0.5 tablets before bedtime. 023 2024 Discontinued eszopiclone (Lunesta) 3 MG tablet Take 1 tablet by mouth at bedtime 023 2024 Discontinued ondansetron ODT (Zofran-ODT) 4 MG disintegrating tablet Take 1 tablet by mouth every 6 (six) hours if needed 023 2024 Discontinued levalbuterol (Xopenex HFA) 45 MCG/ACT inhaler Inhale 2 puffs every 4 (four) hours if needed for wheezing 2024 Discontinued ipratropium (Atrovent) 0.02 % nebulizer solution Take 0.5 mg by nebulization every 6 (six) hours 2024 Discontinued omeprazole (PriLOSEC) [address] capsuleIndication s:Hyponatremia Take 1 capsule (40 mg) by mouth in the morning and 1 capsule (40 mg) in the evening. Take before meals. 180 capsule 3 024 2024 Discontinued aspirin 81 MG EC tablet Take 81 mg by mouth Daily 2024 Discontinued glipiZIDE (Glucotrol) 5 MG tabletIndications :Type 2 diabetes mellitus with hyperglycemia, without long-term current use of insulin ([facility]) TAKE 1 TABLET(5 MG) BY MOUTH DAILY 90 tablet 3 024 2024 Discontinued cholecalciferol (Vitamin D-3) 50 MCG (1999 UT) capsuleIndication s:Vitamin D deficiency TAKE 1 CAPSULE BY MOUTH EVERY MORNING 90 capsule 3 025 2024 Discontinued predniSONE (Deltasone) 10 MG tabletIndications :Acute bronchitis due to other specified organisms 6 PO daily x 3 days, 4 PO daily x 3 days, 2 PO daily x 3 days, 1 PO daily x 3 days 39 tablet 025 2024 Discontinued oxyCODONE-acetami nophen (Percocet) 5-325 MG tabletIndications :Degeneration of intervertebral disc of lumbar region with discogenic back pain and lower extremity pain Take 1 tablet by mouth 4 (four) times a day as needed for severe pain or moderate pain for up to 7 days 28 tablet 025 2024 Discontinued(R eorder) pregabalin (Lyrica) 100 MG capsuleIndication s:DDD (degenerative disc disease), lumbar TAKE 1 CAPSULE BY MOUTH THREE TIMES DAILY 270 capsule 025 2024 Discontinued oxyCODONE-acetami nophen (Percocet) 5-325 MG tabletIndications :Degeneration of intervertebral disc of lumbar region with discogenic back pain and lower extremity pain Take 1 tablet by mouth 4 (four) times a day as needed for severe pain or moderate pain for up to 7 days 28 tablet 025 2024 Discontinued(R eorder) oxyCODONE-acetami nophen (Percocet) 5-325 MG tabletIndications :Degeneration of intervertebral disc of lumbar region with discogenic back pain and lower extremity pain Take 1 tablet by mouth 4 (four) times a day as needed for severe pain or moderate pain for up to 7 days 025 2024 Discontinued(R eorder) Active Problems Problem Noted Date Diagnosed Date Degeneration of intervertebr al disc of lumbar region with discogenic back pain and lower extremity pain 10/09/2024 Assessment & Plan (11/20/2024 12:26 PM EDT): Continued pain and weakness in leg. Severe radicular symptoms. Check EMG. Not scheduled with neurology until January and try to refer to different location. Stop lyrica and start neurontin. Use percocet PRN. Assessment & Plan (10/09/2024 1:44 PM EDT): Severe pain and weakness in leg. Start percocet PRN. Follow up with surgeon. Encounter for long-term (current) use of medicat ions 10/09/2024 Age-related osteoporosis wit hout current pathological fracture 02/13/2024 Essential hypertension, benign 08/27/2023 Assessment & Plan (10/09/2024 1:44 PM EDT): BP controlled and monitor PRN. Assessment & Plan (02/21/2024 12:30 PM EDT): BP controlled and monitor PRN. Bilateral leg edema 08/27/2023 Bullous emphysema 08/27/2023 Assessment & Plan (11/20/2024 12:25 PM EDT): Recent exacerbation but improved. Continue inhalers and follow with pulmonology. Chronic depressive disorder 08/27/2023 Collagenous colitis 08/27/2023 Coronary artery disease, occlusive 08/27/2023 Dyslipidemia 08/27/2023 Esophageal dysmotilities 08/27/2023 Fibromyalgia 08/27/2023 Gastroesophageal reflux disease 08/27/2023 Lumbar radiculopathy 08/27/2023 Assessment & Plan (11/20/2024 12:26 PM EDT): Continued pain and weakness in leg. Severe radicular symptoms. Check EMG. Not scheduled with neurology until January and try to refer to different location. Stop lyrica and start neurontin. Use percocet PRN. Polymyalgia rheumatica syndrome 08/27/2023 Type 2 diabetes mellitus wit h hyperglycemia, without long-term current use of insulin 08/27/2023 Assessment & Plan (10/09/2024 1:44 PM EDT): Not checking BS and due for A1C. Stick to ADA diet and limit carbs. Assessment & Plan (02/21/2024 12:30 PM EDT): Reports BS controlled and due for A1C. Stick to ADA diet and limit carbs. Thoracic outlet syndrome 08/27/2023 Vitamin D deficiency 08/27/2023 Resolved Problems Problem Noted Date Diagnosed Date Resolved Date Acute bronchitis due to othe r specified organisms 08/28/2024 10/09/2024 Assessment & Plan (08/28/2024 3:09 PM EST): Check x-ray. Take antibiotics for 7 days. [...] no better or worse call for re-evaluation. Aspergillus pneumonia 07/22/20242024 Pneumonia due to infectious organism 07/17/2024 10/09/2024 Assessment & Plan (07/17/2024 4:54 PM EST): Recent infection and improved. Monitor. Pleurisy 07/17/2024 10/09/2024 Assessment & Plan (07/17/2024 4:54 PM EST): Severe pain and complete steroids. Use heat to chest wall. Use ultram PRN. COPD with acute exacerbation 06/26/2024 08/28/2024 Assessment & Plan (07/17/2024 4:54 PM EST): Recently treated and complete steroids. Use albuterol PRN. Assessment & Plan (06/26/2024 12:08 PM EST): Severe SOB and decreased BS. Likely exacerbation and go to ER for treatment. Fever 06/26/2024 10/09/2024 Assessment & Plan (06/26/2024 12:09 PM EST): Fever and possibly developing sepsis. Go to ER. Dehydration 06/26/2024 10/09/2024 Assessment & Plan (06/26/2024 12:09 PM EST): Decreased PO and evidence of dehydration. Go to ER for evaluation. Pyelonephritis 02/21/2024 07/17/2024 Assessment & Plan (02/21/2024 12:30 PM EDT): Recent infection but improved with treatment. Increase fluids and monitor. Chronic respiratory failure with hypoxia 08/27/2023 02/21/2024 COPD (chronic obstructive pulmonary disease) 10/09/2024 Assessment & Plan (08/28/2024 3:09 PM EST): Increased SOB and use albuterol PRN. Assessment & Plan (02/21/2024 12:31 PM EDT): Symptoms stable and follow with pulmonology. Dysuria 08/27/2023 02/21/2024 Hydropneumothorax 08/27/2023 02/21/2024 Pneumothorax, right 08/27/2023 07/17/19 25 Hospital discharge follow-up 06/14/2023 06/26/2024 Assessment & Plan (06/14/2023 4:52 PM EST): Recent hospital admission for UTI. Discharged on Cefdinir. Doing well. Denies urinary complaints. Hyponatremia 06/14/2023 10/09/2024 Assessment & Plan (06/14/2023 4:52 PM EST): Noted on labs drawn upon discharge. Sodium 130. Recheck. Encounters Date Type Department Care Team Description 11/28/2024 Telephone [facility] [address] [facility] [address] [place] [phone] Pedro Pablo Thomas MD 11/28/2024 Refill [facility] [address] [place] [phone] Erasto Henry MD Degeneration of intervertebral disc of lumbar region with discogenic back pain and lower extremity pain 11/20/2024 10:45 AM EDT Office Visit [facility] [address] [place] [address] Erasto Henry MD Bullous emphysema (CMS/HCC) (Primary Dx); Degeneration of intervertebral disc of lumbar region with discogenic back pain and lower extremity pain; Lumbar radiculopathy; Numbness; Leg pain, left; Leg pain, right; Bilateral leg weakness 11/20/2024 Orders Only [facility] [address] [place] [address] Erasto Henry MD 11/20/2024 Bamboo flowsheet [facility] [address] [place] [phone] Erasto Henry MD 11/06/2024 Refill [facility] [address] [place] [address] Erasto Henry MD Degeneration of intervertebral disc of lumbar region with discogenic back pain and lower extremity pain 10/29/2024 Refill [facility] [address] [place] [address] Erasto Henry MD DDD (degenerative disc disease), lumbar 10/27/2024 Clinisync Result Encounter [facility] External Department Unsolicited Provider, Generic External Data 10/21/2024 Refill [facility] [address] [place] [phone] Erasto Henry MD Degeneration of intervertebral disc of lumbar region with discogenic back pain and lower extremity pain 10/14/2024 Telephone [facility] [address] [place] [phone] Erasto Henry MD 10/10/2024 Clinisync Result Encounter [facility] External Department Unsolicited Provider, Generic External Data 10/09/2024 1:00 PM EDT Office Visit [facility] [address] [place] [address] Erasto Henry MD Degeneration of intervertebral disc of lumbar region with discogenic back pain and lower extremity pain (Primary Dx); Type 2 diabetes mellitus with hyperglycemia, without long-term current use of insulin (CMS/HCC); Essential hypertension, benign (CMS/HCC); Dyslipidemia (CMS/HCC); Encounter for long-term (current) use of medications 10/09/2024 Bamboo flowsheet [facility] [address] [place] [address] Erasto Henry MD 09/25/2024 Refill [facility] [address] [place] [address] Erasto Henry MD from Last 3 Months Family History Medical History Relation Name Comments Arthritis Father Emphysema Father Heart disease Father Peripheral vascular disease Father Ulcerative colitis Father Heart disease Mother Basal cell carcinoma Other CVA Other Diabetes Other Hypertension Other Relation Name Status Comments Father Mother Other Social History Tobacco Use Types Packs/Day Years [...] on file Sexual Orientation Not on file Last Filed Vital Signs Vital Sign Reading [...] Mass Index 15.48 11/20/2024 10:50 AM EDT Plan of Treatment Upcoming Encounters Date Type Department Care Team (Late st Contact Info) Description 12/12/2024 1:15 PM EDT Procedure Visit [facility] [address] [facility] [address] [place] [address] Pedro Pablo Thomas MD [address] [place], [place] [phone] 01/08/2025 12:45 PM EDT Office Visit [facility] [address] [place] [phone] June Beck DO [address] [place] [address] 01/12/2025 1:45 PM EDT Office Visit [facility] [address] [place] [address] Erasto Henry MD [address] [place] [phone] Health Maintenance Due Date Last Done Comments CT Colonography 1955 FIT-DNA 1957 FIT 1955 FOBT 1955 Sigmoidoscopy 1955 Mammogram 1997 Diabetes: Hemoglobin A1C 09/08/2024 024, 06/05/2023, 06/05/2023, Additional history exists Influenza Vaccine (Season Ended) 2025 Diabetes: Urine Protein Screening 10/10/2025 025 Diabetes: Retinopathy Screening 04/15/2026 4 Colonoscopy 12/11/2027 12/10/2017 Colorectal Cancer Screening 12/11/2027 Pneumococcal Vaccine: 65+ Years Completed 2, 05/05/2022 Procedures Procedure Name Priority Date/Time Associated Diagnosis Comments RHYTHM ECG, REPORT Routine 11/20/2024 11 :41 AM EDT MR LUMBAR SPINE WO CON 10/27/2024 2:23 PM EDT [facility] MICROALB CREAT RATIO RANDOM Routine 10/10/2024 3:00 PM EDT XR LUMBAR SPINE MIN 4V 10/10/2024 12:41 PM EDT MLR HEMOGLOBIN A1C Routine 10/10/2024 12 :34 PM EDT ALL CBC WITH AUTO DIFF Routine 10/10/2024 12:34 PM EDT ALL LIPID PROFILE (FASTING) Routine 10/10/2024 12:34 PM EDT ALL BASIC METABOLIC PANEL Routine 10/10/2024 12:34 PM EDT HP LIVER PANEL Routine 10/10/2024 12:3 4 PM EDT from Last 3 Months Results * ECG 3 Lead (11/20/2024 11:41 AM EDT) us Erasto Henry MD IN CLINIC/BEDSIDE ORDERABLES Fin al Result * MR LUMBAR SPINE WO CON (10/27/2024 2:23 PM EDT) Anatomical Region Laterality Modality Other 10/27/2024 2:23 PM EDT Narrative 10/27/2024 2:26 [place] [address] Magnetic Resonance Report Signed Patient: OMEGATLISE MR#: [id number] : 1955 Acct:[id number] Age/Sex: 69 / F ADM Date: 10/27/24 Loc: MRI Attending Dr: Micaela Perry M.D. Ordering Physician: Mciaela Perry M.D. Date of Service: 10/27/24 Procedure(s): MR lumbar spine wo con Accession Number(s): [id number] cc: Erasto Henry M.D.; iMcaela Perry M.D. The [place] [address] Patient Name: LISE Easton COVERT MRN: [id number] date: 1955 Sex: F Assigned Patient Location: MRI Current Patient Location: MRI Accession/Order Number: [id number] Exam Date: 10/27/2024 14:11 Report Date: 10/27/2024 14:23 At the request of: MICAELA PERRY MD Procedure: MR lumbar spine wo con MRI Lumbar Spine withoutcontrast TECHNIQUE: Multiplanar T1 and T2-weighted imaging of lumbar spine obtained without contrast. HISTORY: T12 compression fracture. Chronic bilateral leg weakness COMPARISON: 05/25/2023 The last fully segmented vertebral pair is operationally defined as L5/S1. POST SURGERY CHANGES: None BONE MARROW INFILTRATION: None BONE MARROW EDEMA: None BONY ALIGNMENT: Adequate bony alignment identified. SPINAL CANAL: No significant central canal narrowing. LUMBAR FRACTURE: T12 compression fracture redemonstrated. Developing L4 central superior endplate compression deformity present. No associated bone marrow edema. Similar L1 superior endplate central compression deformity chronic remote. BONY LESIONS: None KIDNEYS: No hydronephrosis is identified. AORTA: No aortic aneurysm is seen. CONUS MEDULLARIS : There is effacement of the distal portion of the spinal cord secondary to the retropulsion of bony fracture at the superior T12 level. No cord edema or hemorrhage identified. Additional findings CONJOINED NERVE ROOT: None Lower thoracic level: Unremarkable L1-2 :Mild disc bulge. Small left foraminal disc protrusion. Concavity of the anterior thecal sac. Mild central canal stenosis. Posterior element hypertrophy. Patent neural foramen L2-3: Adequate disc height. Patent central canal and neural foramen. Mild posterior element hypertrophy. L3-4:Mild disc space narrowing. Diffuse disc bulge. Mild central canal stenosis. Posterior element hypertrophy. Moderate left and lddc-nd-lgwixxtg right neural foraminal narrowing L4-5: Adequate disc height. Mild diffuse disc bulge. Flattening of anterior thecal sac. Mild central canal stenosis. Posterior element hypertrophy. Mild bilateral neural foraminal narrowing L5-S1: Adequate disc height. Patent central canal and neural foramen. Posterior element hypertrophy MR/MR lumbar spine wo con IMPRESSION: Mild progression of retropulsion of T12 superior compression fracture with effacement of the distal cord. No cord edema or hemorrhage. Similar multilevel discovertebral degenerative changes. Development of chronic L4 superior plate compression deformity. Pre-MRI plain film assessment: None Impression dictated by: Enmanuel Mar M.D.10/27/2024 2:23 PM Dictation Location: [place] [address] Electronically authenticated by: [id number] Y Date: 10/27/2024 14:23 Dictated By: Enmanuel Mar D.O. Signed By: 10/27/24 1426 DD/ 1423 TD/TT: Kiln Stacker: Procedure Note Radiology, Radiologist, - 10/27/2024 [place] [address] Magnetic Resonance Report Signed Patient: LISE GARCIA#: [id number] : 1955cct:[id number] Age/Sex: 69 / FADM Date: 10/27/24 Loc: MRI Attending Dr: Micaela Perry M.D. Ordering Physician: Micaela Perry M.D. Date of Service: 10/27/24 Procedure(s): MR lumbar spine wo con Accession Number(s): [id number] cc: Erasto Henry M.D.; Micaela Perry M.D. The [place] [id number] Patient Name: LISE Easton COVERT MRN: [id number] date: 1955 Sex: F Assigned Patient Location: MRI Current Patient Location: MRI Accession/Order Number: [id number] Exam Date: 10/27/2024 14:11 Report Date: 10/27/2024 14:23 At the request of: MICAELA PERRY MD Procedure: MR lumbar spine wo con MRI Lumbar Spine withoutcontrast TECHNIQUE: Multiplanar T1 and T2-weighted imaging of lumbar spine obtained without contrast. HISTORY: T12 compression fracture. Chronic bilateral leg weakness COMPARISON: 05/25/2023 The last fully segmented vertebral pair is operationally defined as L5/S1. POST SURGERY CHANGES: None BONE MARROW INFILTRATION: None BONE MARROW EDEMA: None BONY ALIGNMENT: Adequate bony alignment identified. SPINAL CANAL: No significant central canal narrowing. LUMBAR FRACTURE: T12 compression fracture redemonstrated. Developing L4 central superior endplate compression deformity present. No associatedbone marrow edema. Similar L1 superior endplate central compression deformity chronic remote. BONY LESIONS: None KIDNEYS: No hydronephrosis is identified. AORTA: No aortic aneurysm is seen. CONUS MEDULLARIS : There is effacement of the distal portion of thespinal cord secondary to the retropulsion of bony fracture at the superior [id number]. No cord edema or hemorrhage identified. Additional findings CONJOINED NERVE ROOT: None Lower thoracic level: Unremarkable L1-2 :Mild disc bulge. Small left foraminal disc protrusion. Concavityof the anterior thecal sac. Mild central canal stenosis. Posterior element hypertrophy. Patent neural foramen L2-3: Adequate disc height. Patent central canal and neural foramen.Mild posterior element hypertrophy. L3-4:Mild disc space narrowing. Diffuse disc bulge. Mild central canal stenosis. Posterior element hypertrophy. Moderate left rjbebuk-fj-chinzdps right neural foraminal narrowing L4-5: Adequate disc height. Mild diffuse disc bulge. Flattening ofanterior thecal sac. Mild central canal stenosis. Posterior element hypertrophy. Mild bilateral neural foraminal narrowing L5-S1: Adequate disc height. Patent central canal and neural foramen. Posterior element hypertrophy MR/MR lumbar spine wo con IMPRESSION: Mild progression of retropulsion of T12 superior compression fracture with effacement of the distal cord. No cord edema or hemorrhage. Similar multilevel discovertebral degenerative changes. Development of chronic L4 superior plate compression deformity. Pre-MRI plain film assessment: None Impression dictated by: Enmanuel Mar M.D.10/27/2024 2:23 PM Dictation Location: [place] [address] Electronically authenticated by: [id number] Y Date: 4:23 Dictated By: Enmanuel Mar D.O. Signed By:10/27/24 1426 DD/ 142 TD/TT: Kiln Stacker: [facility] [place] External Data Provider [facility] Final Result * (ABNORMAL) [facility] MICROALB CREAT RATIO RANDOM (10/10/2024 3:00 PM EDT) MICROALBUMIN URINE RANDOM 9.4 <=30.0 mg/dL [facility] CREATININE URINE RANDOM 139.77 20.00 - 300.00 mg/dL [facility] MICROALBUM CREATININE RATIO UR 67.2(H) 0.0 - 29.9 mg/g [facility] Comment: NO MICROALBUMINURIA 0-29 MG/G CLINICAL MICROALBUMINURIA 30-300 MG/G MACROALBUMINURIA >300 MG/G 10/10/2024 3:00 PM EDT 10/10/2024 3:17 PM EDT Narrative [facility] - 10/10/2024 4:05 PM EDT us Erasto DICKSON Final Result [facility] TB * XR LUMBAR SPINE MIN 4V (10/10/2024 12:41 PM EDT) Anatomical Region Laterality Modality Other 10/10/2024 12:4 1 PM EDT Narrative 10/10/2024 12:44 PM EDT [address] [address] XRay Report Signed Patient: OMEGATLISE MR#: [id number] : 1955 Acct:[id number] Age/Sex: 69 / F ADM Date: 10/10/24 Loc: EC Attending Dr: Micaela Perry M.D. Ordering Physician: Micaela Perry M.D. Date of Service: 10/10/24 Procedure(s): XR lumbar spine min 4V Accession Number(s): [id number] cc: Erasto Henry M.D.; Micaela Perry M.D. [place] [id number] Patient Name: LISE GARCIA MRN: [id number] date: 1955 Sex: F Assigned Patient Location: Current Patient Location: LAB Accession/Order Number: [id number] Exam Date: 10/10/2024 12:36 Report Date: 10/10/2024 12:41 At the request of: MICAELA PERRY MD Procedure: XR lumbar spine min 4V LUMBAR SPINE WITH FLEXION AND EXTENSION VIEWS - 4 views: CLINICAL HISTORY: Acute low back pain with radiation to the left lower extremity where there is weakness. COMPARISON: CT lumbar spine 09/26/2024 Standing AP as well as lateral views in neutral, flexion and extension were obtained. Concavity at the superior endplate of L4 was also present previously, likely related to Schmorl's node. There are no developing fractures. No displacement or instability is seen. No disproportionate disc space narrowing is present. There is minor endplate spurring and lower lumbar facet disease. The SI joints, as visualized are intact. There is minimal atherosclerotic plaque at the aorta. XR/XR lumbar spine min 4V IMPRESSION: MILD DEGENERATIVE CHANGES NO ACUTE BONY FINDINGS. Impression dictated by: Allyn Contreras M.D.10/10/2024 12:41 PM Dictation Location: [place] [address] Electronically authenticated by: [id number] Date: 10/10/2024 12:41 Dictated By: Allyn Contreras M.D. Signed By: 10/10/24 1244 DD/ 1241 TD/TT: Kiln Stacker: Procedure Note Radiology, Radiologist, - 10/10/2024 [place] [address] XRay Report Signed Patient: LISE GARCIA MMR#: [id number] : 1955cct:[id number] Age/Sex: 69 / FADM Date: 10/10/24 Loc: EC Attending Dr: Micaela Perry M.D. Ordering Physician: Micaela Perry M.D. Date of Service: 10/10/24 Procedure(s): XR lumbar spine min 4V Accession Number(s): [id number] cc: Erasto Henry M.D.; Micaela Perry M.D. The [address] [id number] Patient Name: LISE GARCIA MRN: [id number] date: 1955 Sex: F Assigned Patient Location: Current Patient Location: LAB Accession/Order Number: [id number] Exam Date: 10/10/2024 12:36 Report Date: 10/10/2024 12:41 At the request of: MICAELA PERRY MD Procedure: XR lumbar spine min 4V LUMBAR SPINE WITH FLEXION AND EXTENSION VIEWS - 4 views: CLINICAL HISTORY: Acute low back pain with radiation to the left lower extremity where there is weakness. COMPARISON: CT lumbar spine 09/26/2024 Standing AP as well as lateral views in neutral, flexion and extensionwere obtained. Concavity at the superior endplate of L4 was also present previously, likely related to Schmorl's node. There are no developing fractures. No displacement or instability is seen. No disproportionatedisc space narrowing is present. There is minor endplate spurring and lowerlumbar facet disease. The SI joints, as visualized are intact. There is minimal atherosclerotic plaque at the aorta. XR/XR lumbar spine min 4V IMPRESSION: MILD DEGENERATIVE CHANGES NO ACUTE BONY FINDINGS. Impression dictated by: Allyn Contreras M.D.10/10/2024 12:41 PM Dictation Location: [place] [address] Electronically authenticated by: [id number] Y Date: 2:41 Dictated By: Allyn Contreras M.D. Signed By:10/10/24 1244 DD/ 1241 TD/TT: Kiln Stacker: us Generic External Data Provider [facility] Final Result * (ABNORMAL) [facility] HEMOGLOBIN A1C (10/10/2024 12:34 PM EDT) GLYCOHEMOGLOBIN A1C 6.4(H) 4.5 - 6.2 % TB[facility] Comment: ADA RECOMMENDED LIMIT 4.0 - 6.0 ADA THERAPEUTIC TARGET < 7.0 ACTION SUGGESTED > 7.0 ESTIMATED AVERAGE GLUCOSE 137 mg/dL [facility] 10/10/2024 12:3 4 PM EDT 10/10/2024 12:36 PM EDT Narrative CLINISYNC - 10/10/2024 2:41 PM EDT us Erasto Henry MD CLINISYNC [facility] LIVER PANEL (10/10/2024 12:34 PM EDT) BILIRUBIN TOTAL 0.3 0.2 - 1.0 mg/dL [facility] BILIRUBIN DIRECT 0.1 0.0 - 0.2 mg/dL [facility]H ASPARTATE AMINO TRANSFERASE 17 15 - 37 U/L TBH ALANINE AMINOTRANSFERASE 15 14 - 59 U/L TBH ALKALINE PHOSPHATASE 84 46 - 116 U/L TBH TOTAL PROTEIN 6.5 6.4 - 8.2 g/dL TBH ALBUMIN LEVEL 2.9(L) 3.4 - 5.0 g/dL TBH GLOBULIN 3.6 g/dL TBH ALBUMIN GLOBULIN RATIO 0.8 TBH 10/10/2024 12:3 4 PM EDT 10/10/2024 12:36 PM EDT Narrative CLINISYNC - 10/10/2024 1:35 PM EDT us Erasto Henry MD CLINISYGAYLE Final Result [facility] * (ABNORMAL) ALL LIPID PROFILE (FASTING) (10/10/2024 12:34 PM EDT) TRIGLYCERIDES 118 <=150 mg/dL TBH CHOLESTEROL 146 <=200 mg/dL TB HDL CHOLESTEROL 61(H) 40 - 60 mg/dL TB Comment: > or =60 mg/dl - LOW CARDIOVASCULAR RISK <40 mg/dl - HIGH CARDIOVASCULAR RISK LDL CHOLESTEROL CALCULATED 62.0 mg/dL TB Comment: <100 mg/dl OPTIMAL 100-129 mg/dl NEAR OR ABOVE OPTIMAL 130-159 mg/dl BORDERLINE HIGH 160-189 mg/dl HIGH >190 mg/dl VERY HIGH VLDL CHOLESTEROL 23.6 mg/dL TB CHOL HDL RATIO 2.4 TB Comment: 3.3 - 4.4 LOW RISK 4.4 - 7.1 AVERAGE RISK 7.1 - 11.0 MODERATE RISK >11.0 HIGH RISK 10/10/2024 12:3 4 PM EDT 10/10/2024 12:36 PM EDT Narrative CLINISYNC - 10/10/2024 1:35 PM EDT us Erasto DICKSON Final Result [facility] * (ABNORMAL) ALL CBC WITH AUTO DIFF (10/10/2024 12:34 PM EDT) TB WBC 10.4 4.0 - 11.0 10 3/uL TBH TBH RBC 4.51 4.20 - 5.40 10 6/uL TBH TBH HGB 13.0 12.0 - 16.0 g/dL TBH TBH HCT 40.1 36.0 - 48.0 % TBH TBH MCV 88.9 81.0 - 99.0 fL TBH TBH MCH 28.8 26.7 - 34.0 pg TBH TBH MCHC 32.4 29.9 - 35.2 g/dL TBH TBH RDW 13.8 11.0 - 15.0 % TBH TBH PLT 456(H) 150 - 450 10 3/uL TBH TBH MPV 8.9(L) 9.5 - 13.5 fL TBH NEUTROPHILS PERCENT AUTO 68.3 43.0 - 75.0 % TBH LYMPHOCYTES PERCENT AUTO 12.9(L) 20.5 - 60.0 % TBH MONOCYTES PERCENT AUTO 14.3(H) 1.7 - 12.0 % TBH TBH EO % 2.9 0.9 - 7.0 % TBH BASOPHILS PERCENT AUTO 0.5 0.2 - 2.0 % TBH IMMATURE GRANULOCYTES PCT AUTO 1.1(H) 0.0 - 0.5 % TBH NEUTROPHILS ABSOLUTE AUTO 7.1(H) 1.4 - 6.5 10 3/uL TBH LYMPHOCYTES ABSOLUTE AUTO 1.4 1.2 - 3.8 10 3/uL TBH MONOCYTES ABSOLUTE AUTO 1.5(H) 0.3 - 0.8 10 3/uL TBH TBH EO # 0.3 0.0 - 0.7 10 3/uL TBH BASOPHILS ABSOLUTE AUTO 0.1 0.0 - 0.1 10 3/uL TBH IMMATURE GRANULOCYTES ABS AUTO 0.11(H) 0.00 - 0.03 10 3/uL TBH 10/10/2024 12:3 4 PM EDT 10/10/2024 12:36 PM EDT Narrative CLINISYNC - 10/10/2024 1:37 PM EDT us Erasto Henry MD CLINISYNC Final Result [facility] * (ABNORMAL) ALL BASIC METABOLIC PANEL (10/10/2024 12:34 PM EDT) SODIUM 135(L) 136 - 145 mmol/L TBH POTASSIUM 3.3(L) 3.5 - 5.1 mmol/L TBH CHLORIDE 99 98 - 107 mmol/L TBH CARBON DIOXIDE 28.5 21.0 - 32.0 mmol/L TBH ANION GAP 10.8 TBH GLUCOSE 113(H) 74 - 106 mg/dL TBH BLOOD UREA NITROGEN 18.0 7.0 - 18.0 mg/dL TBH CREATININE 1.54(H) 0.55 - 1.02 mg/dL TBH TBH EGFR-AF NEW ZEALANDER 41(L) >=60 mL/min/1.7 3m 2 TBH TBH EGFR-NON AF [place]EALANDER 34(L) >=60 mL/min/1.7 3m 2 TBH BUN CREATININE RATIO 11.7 TBH CALCIUM 9.7 8.5 - 10.1 mg/dL TBH 10/10/2024 12:3 4 PM EDT 10/10/2024 12:36 PM EDT Narrative CLINISYNC - 10/10/2024 1:35 PM EDT Erasto Henry MD CLINISYNC Final Result [facility] from Last 3 Months Insurance [facility] Care Teams Car Knocker Relationship Specialty Start Date End Date Erasto Henry MD [address] [facility] [place] [phone] PCP - General Family Medicine 02/21/24
--- OUTSIDE RECORDS SUMMARY | 2024-12-02 10:52 | XMS_ITS | Encounter Summary ---
Author Organization [facility] Address [address] [place] [address] Care Team Providers Care Organic Preparation Analyst Name Role Phone Erasto Henry MD Primary Care Provider [phone] Erasto Henry MD Primary Care Provider [phone] Encounter Details Date Type Department Care Team (Late Contact Info) Description 02/14/2024 Orders Only [facility] [address] [place] [phone] Enmanuel Bond MD [address] [place] [address] Social History Tobacco Use Types Packs/Day Years [...] on file documented as of this encounter Plan of Treatment Upcoming Encounters Date Type Department Care Team (Late Contact Info) Description 12/12/2024 1:15 PM EDT Procedure Visit [facility] [address] [place] [address] Pedro Pablo Thomas MD [address] [place] [address] 01/08/2025 12:45 PM EDT Office Visit MICHELLE GUEVARA [address] [place] [address] June Beck DO [address] [place] [address] 01/12/2025 1:45 PM EDT Office Visit [facility] [address] [place] [phone] Erasto Henry MD [address] [place] [address] documented as of this encounter Procedures Procedure Name Priority Date/Time Associated Diagnosis Comments CT ABDOMEN & PELVIS W Routine 02/14/2024 3:47 PM EDT XR CHEST 1 VIEW Routine 02/14/2024 1:43 PM EDT documented in this encounter Results * CT ABDOMEN & PELVIS W (02/14/2024 3:47 PM EDT) Anatomical Region Laterality Modality Radiographic Bessy ging Enmanuel Bond MD IMG XR PROCEDURES Final Resul t * XR chest 1 view (02/14/2024 1:43 PM EDT) Anatomical Region Laterality Modality Chest Radiographic Bessy ging Enmanuel Bond MD IMG XR PROCEDURES Final Resul t documented in this encounter Visit Diagnoses Not on filedocumented in this encounter Care Teams Organic Preparation Analyst Relationship Specialty Start Date End Date Erasto Henry MD PCP - General Family Medicine 07/09/22 02/20/24 Erasto Henry MD [address] [place] [address] PCP - General Family Medicine 02/21/24 documented as of this encounter
--- OUTSIDE RECORDS SUMMARY | 2024-12-02 10:52 | XMS_ITS | Encounter Summary ---
Author Organization [facility] Address [address] [facility] [place] [address] Care Team Providers Care Stonecutter Hand Name Role Phone Erasto Henry MD Primary Care Provider Encounter Details Date Type Department Care Team (Late st Contact Info) Description 02/21/2024 Clinisync Result Encounter [facility] External Department Unsolicited Provider, Generic External Data Social History Tobacco Use Types Packs/Day Years [...] Visit [facility] [address] [place] [address] Pedro Pablo Thomas MD [address] [facility] [address] [place] [address] 01/08/2025 12:45 PM EDT Office Visit MICHELLE GUEVARA [address] [place] [address] June Beck DO [address] [place] [address] 01/12/2025 1:45 PM EDT Office Visit [facility] IRENE [facility]ENCIA [address] [place] [address] Erasto Henry MD [address] [place] [address] documented as of this encounter Procedures Procedure Name Priority Date/Time Associated Diagnosis Comments CT LUNG SCREENING LOW DOSE 02/21/2024 6:27 AM EDT documented in this encounter Results * CT LUNG SCREENING LOW DOSE (02/21/2024 6:27 AM EDT) Anatomical Region Laterality Modality Other 02/21/2024 6:27 AM EDT Narrative 02/21/2024 6:30 [place] [address] [place] Scan Report Signed Patient: OMEGATLISE MR#: [id number] : 1955 Acct:[id number] Age/Sex: 68 / F ADM Date: 02/19/24 Loc: CT Attending Dr: Ishan Quezada D.O. Ordering Physician: Ishan Quezada D.O. Date of Service: 02/19/24 Procedure(s): CT lung screening low-dose Accession Number(s): [id number] cc: Erasto Henry M.D. The [address] [id number] Patient Name: LISE Easton COVERT MRN: [id number] date: 1955 Sex: F Assigned Patient Location: CT Current Patient Location: ED.MAIN Accession/Order Number: [id number] Exam Date: 02/19/2024 13:15 Report Date: 02/21/2024 06:27 At the request of: ISHAN QUEZADA Procedure: CT lung screening low-dose EXAMINATION: CT lung screening low-dose HISTORY: former smoker COMPARISON: CT chest 12/19/2023, 02/11/2023 TECHNIQUE: Axial, Coronal, and Sagittal images were created without the administration of IV contrast material. Dose reduction techniques were achieved by using automated exposure control and/or adjustment of mA and/or kV according to patient size and/or use of iterative reconstruction technique. FINDINGS: LUNGS: Stable scarring in moderate emphysematous changes within the lungs. PLEURA: Stable calcified pleural plaque versus calcification of remote pleural hematoma. VASCULATURE: No abnormality. ROBLES: No mass or pathologic adenopathy. MEDIASTINUM: No mass or pathologic adenopathy. CARDIAC: No enlargement, pericardial thickening, or pericardial effusion. Coronary Artery calcifications: AORTA: No aneurysm or dissection. CHEST WALL: No mass or axillary adenopathy BONES: Moderate compression fracture of T12, stable. LIMITED ABDOMEN: No suspicious findings. Limited images of the upper abdomen. OTHER: Negative. CT/CT lung screening low-dose IMPRESSION: 1. Lung-RADS 2- Benign Appearance or Behavior. Nodules with a very low likelihood of becoming a clinically active cancer due to size or lack of growth. Follow-up CT Chest in 1 year. 2. Stable scarring in moderate emphysematous changes. 3. Stable T12 moderate compression fracture and moderate retropulsion of the posterior wall. Electronically authenticated by: KIRBY CASTILLO Date: 02/21/2024 06:27 Dictated By: Kirby Castillo M.D. Signed By: 02/21/2430 DD/ 6 TD/TT: Stud Master/Mistress: Procedure Note Radiology, Radiologist, MD - 02/21/2024 [place] [address] CT Scan Report Signed Patient: LISE CANALES MMR#: [id number] : 7Acct:[id number] Age/Sex: 68 / FADM Date: 02/19/24 Loc: CT Attending Dr: Ishan Quezada D.O. Ordering Physician: Ishan Quezada D.O. Date of Service: 02/19/24 Procedure(s): CT lung screening low-dose Accession Number(s): [id number] cc: Erasto Henry M.D. [place] [address] Patient Name: LISE CANALES MRN: [facility]:[id number] date: 1955 Sex: F Assigned Patient Location: CT Current Patient Location: ED.MAIN Accession/Order Number: [id number] Exam Date: 02/19/2024 13:15 Report Date: 02/21/2024 06:27 At the request of: ISHAN QUEZADA Procedure: CT lung screening low-dose EXAMINATION: CT lung screening low-dose HISTORY: former smoker COMPARISON: CT chest 12/19/2023, 02/11/2023 TECHNIQUE: Axial, Coronal, and Sagittal images were created without the administration of IV contrast material. Dose reduction techniques were achieved by using automated exposure control and/or adjustment of mA and/or kV according to patient size and/or use of iterative reconstruction technique. FINDINGS: LUNGS: Stable scarring in moderate emphysematous changes within the lungs. PLEURA: Stable calcified pleural plaque versus calcification of remotepleural hematoma. VASCULATURE: No abnormality. ROBLES: No mass or pathologic adenopathy. MEDIASTINUM: No mass or pathologic adenopathy. CARDIAC: No enlargement, pericardial thickening, or pericardial effusion. Coronary Artery calcifications: AORTA: No aneurysm or dissection. CHEST WALL: No mass or axillary adenopathy BONES: Moderate compression fracture of T12, stable. LIMITED ABDOMEN: No suspicious findings. Limited images of the upperabdomen. OTHER: Negative. CT/CT lung screening low-dose IMPRESSION: 1. Lung-RADS 2- Benign Appearance or Behavior. Nodules with a very low likelihood of becoming a clinically active cancer due to size or lack of growth. Follow-up CT Chest in 1 year. 2. Stable scarring in moderate emphysematous changes. 3. Stable T12 moderate compression fracture and moderate retropulsion ofthe posterior wall. Electronically authenticated by: KIRBY CASTILLO Date: 02/21/2024 06:27 Dictated By: Kirby Castillo M.D. Signed By:02/21/2430 DD/ 6 TD/TT: Stud Master/Mistress: Generic External Data Provider CLINISYNC IMAGING Final Result documented in this encounter Visit Diagnoses Not on filedocumented in this encounter Care Teams Stonecutter Hand Relationship Specialty Start Date End Date Erasto Henry MD [address] [place] [address] PCP - General Family Medicine 02/21/24 documented as of this encounter
--- OUTSIDE RECORDS SUMMARY | 2024-12-02 10:52 | XMS_ITS | Encounter Summary ---
Author Organization [facility] Address [address] [place] [address] Care Team Providers Care Dry Color Tester Name Role Phone Erasto Henry MD Primary Care Provider Erasto Henry MD Primary Care Provider Encounter Details Date Type Department Care Team (Late Contact Info) Description 02/19/2024 Orders Only [facility] [address] [place] [phone] Soledad Wasserman MD [address] [place] [address] Social History Tobacco Use Types Packs/Day Years [...] B [address] [place] [phone] Pedro Pablo Thomas MD [address] [facility] [address] [place] [address] 01/08/2025 12:45 PM EDT Office Visit MICHELLE GUEVARA [address] [place] [address] June Beck DO [address] [place] [address] 01/12/2025 1:45 PM EDT Office Visit [facility] [address] [place] [address] Erasto Henry MD [address] [place] [address] documented as of this encounter Procedures Procedure Name Priority Date/Time Associated Diagnosis Comments XR CHEST 2 VIEWS Routine 02/19/2024 7:40 AM EDT documented in this encounter Results * XR chest 2 views (02/19/2024 7:40 AM EDT) Anatomical Region Laterality Modality Chest Radiographic Bessy ging Soledad Wasserman MD IMG XR PROCEDURES Final Result documented in this encounter Visit Diagnoses Not on filedocumented in this encounter Care Teams Dry Color Tester Relationship Specialty Start Date End Date Erasto Henry MD PCP - General Family Medicine 07/09/22 02/20/24 Erasto Henry MD [address] [place] [address] PCP - General Family Medicine 02/21/24 documented as of this encounter
--- OUTSIDE RECORDS SUMMARY | 2024-12-02 10:52 | XMS_ITS | Clinical Summary ---
Author Organization [facility] Address [facility] [place] [address] Care Team Providers Care Sustainability Director Name Role Phone Ashley Hari Deandre YAP Primary Care Provider [phone] Allergies Active Allergy Reactions Criticality Noted Date Comments Latex 04/24/2007 Medications gabapentin (NEURONTIN) 300 mg ORAL Cap Take one(1) capsule three(3) times daily. 0 04/17/2007 Active tizanidine (ZANAFLEX) 4 mg ORAL Tab Take one(1) tablet three(3) times daily. 0 04/17/2007 Active duloxetine (CYMBALTA) 30 mg ORAL CpDR Take one(1) tablet two(2) times daily. 0 04/17/2007 Active oxycodone-aceta minophen (PERCOCET) 5-325 mg ORAL Tab Take one(1) tablet every four(4) to six(6) hours as needed for pain. 0 04/17/2007 Active propoxyphene napsylate-aceta minophen (DARVOCET-N 100) 100-650 mg ORAL Tab Take one(1) tablet every four(4) to six(6) hours as needed. Do not exceed 6 pills per day. 0 04/17/2007 Active eszopiclone (LUNESTA) 3 mg ORAL Tab Take one(1) tablet at bedtime as needed for insomnia. 0 04/17/2007 Active NIFEdipine SR (PROCARDIA XL) 30 mg ORAL TO24 Take one(1) tablet daily. 0 04/17/2007 Active Melatonin 3 mg ORAL Tab Take one(1) tablet daily at bedtime. 0 04/17/2007 Active multivitamin ORAL Tab Take one(1) tablet daily. 0 04/17/2007 Active cyanocobalamin 1,000 mcg ORAL Tab Take one(1) tablet daily. 0 04/17/2007 Active pyridoxine (VITAMIN B-6) 100 mg ORAL Tab Take one(1) tablet daily. 0 04/17/2007 Active folic acid 1 mg ORAL Tab Take one (1) tablet daily. 0 04/17/2007 Active Ascorbic Acid (VITAMIN C) 1,000 mg ORAL Tab Take one(1) tablet daily. 0 04/17/2007 Active Potassium 99 mg ORAL Tab Take one(1) tablet daily. 0 04/17/2007 Active budesonide, enteric coated (ENTOCORT EC) 3 mg ORAL Cp24 Take 3 tablets daily for 2 months, then decrease to 2 tablets daily for 2 weeks and then to one tablet daily for 2 weeks. 100 3 05/15/2007 Active Calcium Citrate-Vitamin D3 (CITRACAL + D) 250-200 mg-unit ORAL Tab two po bid 120 11 05/15/2007 Active Chromium 200 mcg ORAL Tab one po tid 100 3 05/15/2007 Active bupropion hcl(WELLBUTRIN SR 150 MG TAB) Take one(1) tablet daily. 0 08/07/2007 Active Active Problems Problem Noted Date Diagnosed Date Other and unspecified noninf ectious gastroenteritis and colitis(558.9) 05/15/2007 Loss of weight 04/17/2007 Diarrhea 04/17/2007 Psoriatic arthropathy 04/17/2007 Other psoriasis 04/17/2007 Other emphysema 04/17/2007 Candidiasis of mouth 04/17/2007 Social History Tobacco Use Types Packs/Day Years Used Date Smoking Tobacco: Never Alcohol Use Standard Drinks/Week Comments Not Asked 0 (1 standard drink = 0.6 oz pur e alcohol) Comments No Sex and Gender Information Value Date Recorded Sex Assigned at Not on file Legal Sex Female 8:09 AM EST Gender Identity Not on file Sexual Orientation Not on file Last Filed Vital Signs Vital Sign Reading Time Taken Comments Blood Pressure 141/89 08/07/2007 3:47 PM EST Pulse 93 08/07/2007 3:47 PM EST Temperature - - Respiratory Rate - - Oxygen Saturation 98% 08/07/2007 3:47 PM EST Inhaled Oxygen Concentration - - Weight 57 kg (125 lb 10.6 oz) 08/07/2007 3:47 PM EST Height 165.1 cm (5' 5 ) 05/15/2007 10:42 AM EST Body Mass Index 20.91 05/15/2007 10:42 AM EST Plan of Treatment Health Maintenance Due Date Last Done Comments Anxiety Screening 1975 Depression Screening 1975 Hepatitis C Screening 1975 DTaP,Tdap,Td Vaccine (1 - Tdap) [address] Colonography 2002 Cologuard (FIT-DNA) 2002 Fecal Occult Blood 2002 Lipid Screening 2002 Sigmoidoscopy 2002 Pneumococcal Vaccine: 50+ (1 of 1 - PCV) 2007 Shingrix Vaccine (1 of 2) 2007 Colonoscopy 04/24/2008 04/24/2007 Colorectal Cancer Screening 04/24/2008 Diabetes Screening 04/17/2010 04/17/2007, 04/17/2007 Bone Density Screening 2022 Covid-19 Vaccine ( season) 2024 Advance Directive Discussion 07/09/2024 Influenza Vaccine (Season Ended) 2025 RSV Vaccine (1 - 1-dose 75+ series) 2032 Procedures Procedure Name Priority Date/Time Associated Diagnosis Comments COLONOSCOPY 04/24/2007 2:33 PM EDT HEMOGLOBIN A1C Routine 04/17/2007 12:44 PM EDT Diarrhea Nos Loss Of Weight Psoriatic Arthropathy Other Psoriasis Emphysema Nec Thrush from Last 3 Months or Most Recently Relevant to Health Maintenance Results * COLONOSCOPY (04/24/2007 2:33 PM EDT) Senior Quality Assurance Analyst Introduction: A patient presents for an elective outpatient Colonoscopy. Indications: Diarrhea (787.91). Clinical History and Physical: The patient's clinical history and physical exam were performed and are documented in the patient's record. Consent: The benefits, risks, alternatives, and personnel associated with the procedure were discussed and informed consent was obtained from the patient. Preparation: Pulse, pulse oximetry and blood pressure were monitored throughout the procedure. The patient received Half Lytely in preparation for the procedure. Medications: Demerol 50 mg IV throughout the procedure Versed 2 mg IV throughout the procedure Patient previously medicated. Rectal Exam: Normal rectal exam. Procedure: The endoscope was passed with ease through the anus under direct visualization and advanced to the terminal ileum. The scope was withdrawn and the mucosa was carefully examined. Retroflexion was performed. The quality of the preparation was good (no or minimal solid stool, large amounts of clear liquid requiring suctioning). Findings: Exudate and granular mucosa were found in the entire colon. The mucosa of the rectum had multiple shallow ulcers. Multiple random biopsies were taken from throughout the colon and terminal ileum. Unplanned Events: There were no unplanned events. Impression: Exudate (511.9) found in the entire colon. Granular mucosa found in the colon. Ulcers found in the rectum. Random biopsy taken throughout the colon and terminal ileum. Recommendations: Follow-up on the results of the biopsy specimens. Follow-up appointment with family physician. Performed By: The procedure was performed by Dunia Triana M.D. Procedure Codes: 97205: Colonoscopy with biopsy [facility] 04/24/2007 2:33 PM EDT Narrative [facility] - 04/24/2007 4:02 PM EDT Ordered by an unspecified provider. Cc Provider SCHEDULED PROCEDURES Final Resul t Performing Organization Address [facility] Co de Phone Number [facility] [address] [place] [address] * (ABNORMAL) HGB A1C (04/17/2007 12:44 PM EDT) Hemoglobin A1C 6.1(H) 4.0 - 6.0 % [facility] Blood specimen (specimen) BLOOD SPECIMEN / Unknown 04/17/2007 12:44 PM EDT Benson Andrew (Hist) Luis [facility] Final Result Performing Organization Address [facility] Co de Phone Number [facility] [address] [place] [address] from Last 3 Months or Most Recently Relevant to Health Maintenance Insurance MEDICARE Care Teams Sustainability Director Relationship Specialty Start Date End Date Hari Ramirez DO PCP - General 01/11/07
--- OUTSIDE RECORDS SUMMARY | 2024-12-02 10:52 | XMS_ITS | Encounter Summary ---
Author Organization [facility] Address [address] [place] [address] Care Team Providers Care Sewer Name Role Phone Erasto Henry MD Primary Care Provider [phone] Encounter Details Date Type Department Care Team (Late Contact Info) Description 07/08/2024 Orders Only [facility] [address] [place] [phone] Erasto Henry MD [address] [place] [address] Social History Tobacco Use Types Packs/Day Years [...] B [address] [place] [address] Pedro Pablo Thomas MD [address] [facility] [address] [place], [place] [id number] 01/08/2025 12:45 PM EDT Office Visit MICHELLE GUEVARA [address] [place] [address] June Beck DO [address] [place] [address] 01/12/2025 1:45 PM EDT Office Visit [facility] [address] [place] [address] Erasto Henry MD [address] [place] [address] documented as of this encounter Procedures Procedure Name Priority Date/Time Associated Diagnosis Comments ELECTROCARDIOGRAM REPORT Routine 024 8:54 AM EST documented in this encounter Results * Electrocardiogram Report (07/07/2024 8:54 AM EST) Erasto Henry MD IN CLINIC/BEDSIDE ORDERABLES Fin al Result documented in this encounter Visit Diagnoses Not on filedocumented in this encounter Care Teams Sewer Relationship Specialty Start Date End Date Erasto Henry MD [address] [place] [address] PCP - General Family Medicine 02/21/24 documented as of this encounter
--- OUTSIDE RECORDS SUMMARY | 2024-12-02 10:52 | XMS_ITS | Encounter Summary ---
Author Organization [facility] Address [address] [place] [address] Care Team Providers Care Fitter Up Name Role Phone Erasto Henry MD Primary Care Provider [phone] Encounter Details Date Type Department Care Team (Late Contact Info) Description 07/10/2024 Orders Only [facility] [address] [place] [address] Gt Wyatt MD [address] [place] [address] Social History Tobacco Use Types Packs/Day Years [...] Visit [facility] B [address] [facility] [address] [place] [address] Pedro Pablo Thomas MD 7[address] [facility] [address] [address] 01/08/2025 12:45 PM EDT Office Visit MICHELLE GUEVARA [address] [place] [phone] June Beck DO [address] [place] [address] 01/12/2025 1:45 PM EDT Office Visit [facility] [address] [place] [address] Erasto Henry MD [address] [place] [address] documented as of this encounter Procedures Procedure Name Priority Date/Time Associated Diagnosis Comments XR CHEST 2 VIEWS Routine 07/10/2024 11:47 AM EST documented in this encounter Results * XR chest 2 views (07/10/2024 11:47 AM EST) Anatomical Region Laterality Modality Chest Radiographic Bessy ging us Gt Wyatt MD IMG XR PROCEDURES Final Result documented in this encounter Visit Diagnoses Not on filedocumented in this encounter Care Teams Fitter Up Relationship Specialty Start Date End Date Erasto Henry MD [address] [place] [address] PCP - General Family Medicine 02/21/24 documented as of this encounter
--- OUTSIDE RECORDS SUMMARY | 2024-12-02 10:52 | XMS_ITS | Encounter Summary ---
Author Organization [facility] Address [address] [facility] [place] [address] Care Team Providers Care Radiology Asst Name Role Phone Erasto Henry MD Primary Care Provider [phone] Encounter Details Date Type Department Care Team (Late Contact Info) Description 11/20/2024 Bamboo flowsheet [facility] [address] [place] [address] Erasto Henry MD [address] [place] [address] Social History Tobacco Use Types Packs/Day Years [...] B [address] [place] [address] Pedro Pablo Thomas MD [address] [facility] [address] [place] [address] 01/08/2025 12:45 PM EDT Office Visit MICHELLE GUEVARA [address] [place] [phone] June Beck DO [address] [place] [address] 01/12/2025 1:45 PM EDT Office Visit [facility] [address] [place] [address] Erasto Henry MD [address] [place] [address] documented as of this encounter Visit Diagnoses Not on filedocumented in this encounter Care Teams Radiology Asst Relationship Specialty Start Date End Date Erasto Henry MD [address] [place] [address] PCP - General Family Medicine 02/21/24 documented as of this encounter
--- OUTSIDE RECORDS SUMMARY | 2024-12-02 10:52 | XMS_ITS | Encounter Summary ---
Author Organization [facility] Address [address] [facility] [place] [address] Care Team Providers Care Caster Investment Casting Name Role Phone Erasto Henry MD Primary Care Provider Erasto Henry MD Primary Care Provider Encounter Details Date Type Department Care Team (Late Contact Info) Description 06/14/2023 Orders Only [facility] FM [address] [place] [address] Shaikh Cabrera MD [address] [place] [address] Social History Tobacco Use Types Packs/Day Years [...] Visit [facility] SWS NEUR B [address] [facility] [address] [place] [address] Pedro Pablo Thomas MD [address] [place] [address] 01/08/2025 12:45 PM EDT Office Visit MICHELLE GUEVARA [address] [place] [phone] June Beck DO [address] [place] [address] 01/12/2025 1:45 PM EDT Office Visit [facility] [address] [place] [address] Erasto Henry MD [address] [place] [address] documented as of this encounter Procedures Procedure Name Priority Date/Time Associated Diagnosis Comments CBC Routine 06/14/2023 12:09 PM EST documented in this encounter Results * CBC (06/14/2023 12:09 PM EST) Blood Venous blood specimen / Unknown us Shaikh Rick [facility] BLOOD ORDERABLES Final Resu lt documented in this encounter Visit Diagnoses Not on filedocumented in this encounter Care Teams Caster Investment Casting Relationship Specialty Start Date End Date Erasto Henry MD PCP - General Family Medicine 07/09/22 02/20/24 Erasto Henry MD [address] [place] [address] PCP - General Family Medicine 02/21/24 documented as of this encounter
--- OUTSIDE RECORDS SUMMARY | 2024-12-02 10:52 | XMS_ITS | Encounter Summary ---
Author Organization [facility] Address [address] [facility] [place] [address] Care Team Providers Care Nutritional Services Cook Name Role Phone Erasto Henry MD Primary Care Provider Erasto Henry MD Primary Care Provider Encounter Details Date Type Department Care Team (Late Contact Info) Description 08/20/2023 Orders Only [facility] [address] [place] [address] Erasto Henry MD [address] [place] [address] Social History Tobacco Use Types Packs/Day Years [...] Upcoming Encounters Date Type Department Care Team ([facility] Contact Info) Description 12/12/2024 1:15 PM EDT Procedure Visit [facility] SWS NEUR B [address] [facility] [address] [place] [address] Pedro Pablo Thomas MD [address] [place] [address] 01/08/2025 12:45 PM EDT Office Visit MICHELLE GUEVARA [address] [place] [phone] June Beck DO [address] [place] [address] 01/12/2025 1:45 PM EDT Office Visit [facility] [address] [place] [address] Erasto Henry MD [address] [place] [address] documented as of this encounter Visit Diagnoses Not on filedocumented in this encounter Care Teams Nutritional Services Cook Relationship Specialty Start Date End Date Erasto Henry MD PCP - General Family Medicine 07/09/22 02/20/24 Erasto Henry MD [address] [place] [address] PCP - General Family Medicine 02/21/24 documented as of this encounter
--- OUTSIDE RECORDS SUMMARY | 2024-12-02 10:52 | XMS_ITS | Encounter Summary ---
Author Organization [facility] Address [address] [place] [address] Care Team Providers Care Concrete Truck Driver Name Role Phone Erasto Henry MD Primary Care Provider [phone] Encounter Details Date Type Department Care Team (Late Contact Info) Description 06/09/2024 Orders Only [facility] CWRustam [address] [place] [address] Erasto Henry MD [address] [place] [address] Social History Tobacco Use Types Packs/Day Years [...] 1:15 PM EDT Procedure Visit [facility] MARCELLA VALDEZ B [address] [facility] [address] [place] [address] Pedro Pablo Thomas MD 3304 [facility] [address] [phone] 01/08/2025 12:45 PM EDT Office Visit MICHELLE GUEVARA [address] [place] [address] June Beck DO [address] [place] [address] 01/12/2025 1:45 PM EDT Office Visit [facility] [address] [place] [address] Erasto Henry MD [address] [place] [address] documented as of this encounter Procedures Procedure Name Priority Date/Time Associated Diagnosis Comments XR CHEST 1 VIEW Routine 06/09/2024 11:12 AM EST documented in this encounter Results * XR chest 1 view (06/09/2024 11:12 AM EST) Anatomical Region Laterality Modality Chest Radiographic Bessy ging Erasto Henry MD IMG XR PROCEDURES Final Result documented in this encounter Visit Diagnoses Not on filedocumented in this encounter Care Teams Concrete Truck Driver Relationship Specialty Start Date End Date Erasto Henry MD [address] [place] [address] PCP - General Family Medicine 02/21/24 documented as of this encounter
--- OUTSIDE RECORDS SUMMARY | 2024-12-02 10:52 | XMS_ITS | Encounter Summary ---
Author Organization [facility] Address [address] [facility] [place] [address] Care Team Providers Care Intelligence Intern Name Role Phone Erasto Henry MD Primary Care Provider Erasto Henry MD Primary Care Provider Encounter Details Date Type Department Care Team (Late Contact Info) Description 12/19/2023 Orders Only [facility] [address] [place] [address] Erasto Henry MD [address] [place] [address] Social History Tobacco Use Types Packs/Day Years [...] Upcoming Encounters Date Type Department Care Team ([facility] Contact Info) Description 12/12/2024 1:15 PM EDT Procedure Visit [facility] [address] [facility] [address] [place] [address] Pedro Pablo Thomas MD [address] [place] [address] 01/08/2025 12:45 PM EDT Office Visit MICHELLE GUEVARA [address] [place] [phone] June Beck DO [address] [place] [address] 01/12/2025 1:45 PM EDT Office Visit [facility] C[facility] [address] [place] [address] Erasto Henry MD [address] [place] [address] documented as of this encounter Visit Diagnoses Not on filedocumented in this encounter Care Teams Intelligence Intern Relationship Specialty Start Date End Date Erasto Henry MD PCP - General Family Medicine 07/09/22 02/20/24 Erasto Henry MD [address] [place] [address] PCP - General Family Medicine 02/21/24 documented as of this encounter
--- OUTSIDE RECORDS SUMMARY | 2024-12-02 10:52 | XMS_ITS | Encounter Summary ---
Author Organization [facility] Address [address] [place] [address] Care Team Providers Care Truck Greaser Name Role Phone Erasto Henry MD Primary Care Provider Erasto Henry MD Primary Care Provider [phone] Encounter Details Date Type Department Care Team (Late Contact Info) Description 11/14/2023 [facility] [address] [place] [address] Erasto Henry MD [address] [place] [address] Social History Tobacco Use Types Packs/Day Years [...] Upcoming Encounters Date Type Department Care Team ([facility] Contact Info) Description 12/12/2024 1:15 PM EDT Procedure Visit [facility] SWS NEUR B [address] [facility] [address] [place] [address] Pedro Pablo Thomas MD [address] [facility] [address] [place] [address] 01/08/2025 12:45 PM EDT Office Visit MICHELLE GUEVARA [address] [place] [phone] June Beck DO [address] [place] [address] 01/12/2025 1:45 PM EDT Office Visit [facility] C[facility] [address] [place] [address] Erasto Henry MD [address] [place] [address] documented as of this encounter Visit Diagnoses Not on filedocumented in this encounter Care Teams Truck Greaser Relationship Specialty Start Date End Date Erasto Henry MD PCP - General Family Medicine 07/09/22 02/20/24 Erasto Henry MD [address] [place] [address] PCP - General Family Medicine 02/21/24 documented as of this encounter
--- OUTSIDE RECORDS SUMMARY | 2024-12-02 10:52 | XMS_ITS | Encounter Summary ---
Author Organization [facility] Address [address] [place] [address] Care Team Providers Care Senior Adults Director Name Role Phone Erasto Henry MD Primary Care Provider [phone] Encounter Details Date Type Department Care Team (Late st Contact Info) Description 04/16/2024 Orders Only [facility] FM [address] [place] [address] Krystina Porras, OD [address] [place] [address] Social History Tobacco Use Types Packs/Day Years [...] Visit [facility] MARCELLA VALDEZ B [address] [facility] [address] [place] [address] Pedro Pablo Thomas MD 5350 [facility] [address] [id number] 01/08/2025 12:45 PM EDT Office Visit MICHELLE GUEVARA [address] [place] [phone] June Beck DO [address] [place] [address] 01/12/2025 1:45 PM EDT Office Visit [facility] [address] [place] [address] Erasto Henry MD [address] [place] [address] documented as of this encounter Procedures Procedure Name Priority Date/Time Associated Diagnosis Comments DIABETES EYE EXAM Routine 04/16/2024 6:36 AM EDT documented in this encounter Results * Diabetes Eye Exam (04/16/2024 6:36 AM EDT) [facility] OD HEALTH MAINTENANCE Final Result documented in this encounter Visit Diagnoses Not on filedocumented in this encounter Care Teams Senior Adults Director Relationship Specialty Start Date End Date Erasto Henry MD [address] [place] [address] PCP - General Family Medicine 02/21/24 documented as of this encounter
--- OUTSIDE RECORDS SUMMARY | 2024-12-02 10:52 | XMS_ITS | Encounter Summary ---
Author Organization [facility] Address [address] [place] [address] Care Team Providers Care Computer Forwarding System Markup Clerk Name Role Phone Erasto Henry MD Primary Care Provider [phone] Encounter Details Date Type Department Care Team (Late Contact Info) Description 06/26/2024 [facility] [address] [place] [address] Erasto Henry MD [address] [place] [address] Social History Tobacco Use Types Packs/Day Years [...] Visit [facility] MARCELLA VALDEZ B [address] [facility] [address] [place] [address] Pedro Pablo Thomas MD [address] [facility] [address] [phone] 01/08/2025 12:45 PM EDT Office Visit MICHELLE GUEVARA [address] [place] [phone] June Beck DO [address] [place] [address] 01/12/2025 1:45 PM EDT Office Visit [facility] [address] [place] [address] Erasto Henry MD [address] [place] [address] documented as of this encounter Visit Diagnoses Not on filedocumented in this encounter Care Teams Computer Forwarding System Markup Clerk Relationship Specialty Start Date End Date Erasto Henry MD [address] [place] [address] PCP - General Family Medicine 02/21/24 documented as of this encounter
--- OUTSIDE RECORDS SUMMARY | 2024-12-02 10:52 | XMS_ITS | Encounter Summary ---
Author Organization [facility] Address [address] [place] [address] Care Team Providers Care Train Announcer Name Role Phone Erasto Henry MD Primary Care Provider [phone] Erasto Henry MD Primary Care Provider [phone] Encounter Details Date Type Department Care Team (Late Contact Info) Description 02/12/2024 Clinisync Result Encounter NOMS External Department Unsolicited [...] Visit [facility] SWS NEUR B [address] [place] [address] Pedro Pablo Thomas MD [address] [facility] [address] [place], [place] [address] 01/08/2025 12:45 PM EDT Office Visit MICHELLE GUEVARA [address] [place] [address] June Beck DO [address] [place] [address] 01/12/2025 1:45 PM EDT Office Visit [facility] IRENE PALENCIA [address] [place] [address] Erasto Henry MD [address] [place] [address] documented as of this encounter Procedures Procedure Name Priority Date/Time Associated Diagnosis Comments XR DEXA AXIAL SKELETON 02/12/2024 3:15 PM EDT documented in this encounter Results * XR DEXA AXIAL SKELETON (02/12/2024 3:15 PM EDT) Anatomical Region Laterality Modality Other 02/12/2024 3:15 PM EDT Narrative 02/12/2024 3:18 PM EDT The [address] [address] XRay Report Signed Patient: LISE CANALES MR#: [id number] : 1955 Acct:[id number] Age/Sex: 68 / F ADM Date: 02/12/24 Loc: RAD Attending Dr: Viviane Hayes NP Ordering Physician: Viviane Hayes NP Date of Service: 02/12/24 Procedure(s): XR DEXA axial skeleton Accession Number(s): [id number] cc: Erasto Henry M.D.; Viviane Hayes NP The [address] [address] Patient Name: LISE CANALES MRN: [id number] date: 1955 Sex: F Assigned Patient Location: RAD Current Patient Location: RAD Accession/Order Number: [id number] Exam Date: 02/12/2024 13:00 Report Date: 02/12/2024 15:15 At the request of: VIVIANE HAYES Procedure: XR DEXA axial skeleton EXAMINATION: XR DEXA axial skeleton HISTORY: Age-related osteoporosis COMPARISON: DEXA bone densitometry 12/22/2021 TECHNIQUE: Dual-energy X-ray absorptiometry (DXA) was performed. FINDINGS: SPINE ANALYSIS: Average bone mineral density is 0.838 g/cm2. T-score (standard deviation relative to young adult mean): -2.8 . +1.2% change since prior study. HIP ANALYSIS: Lowest bone mineral density is within the left femoral neck, 0.678 g/cm2. T-score (standard deviation relative to young adult mean): -2.6 . -1.7% change since prior study. XR/XR DEXA axial skeleton IMPRESSION: World Health Organization Classification: Osteoporosis - High Fracture Risk FRAX: Cannot calculate. Pharmacologic treatment recommendations * No uniform recommendation applies to all patients. Management plans must be individualized. * Consider initiating pharmacologic treatment in postmenopausal women and men >= 50 years of age who have the following: Primary fracture prevention: * T-score <= - 2.5 at the femoral neck, total hip, lumbar spine, 33% radius (some uncertainty with existing data) by DXA. * Low bone mass (osteopenia: T-score between - 1.0 and - 2.5) at the femoral neck or total hip by DXA with a 10-year hip fracture risk >= 3% or a 10-year major osteoporosis-related fracture risk >= 20% (i.e., clinical vertebral, hip, forearm, or proximal humerus) based on the US-adapted FRAXregistered model. Secondary fracture prevention: * Fracture of the hip or vertebra regardless of BMD [4, 5]. * Fracture of proximal humerus, pelvis, or distal forearm in persons with low bone mass (osteopenia: T-score between - 1.0 and - 2.5). The decision to treat should be individualized in persons with a fracture of the proximal humerus, pelvis, or distal forearm who do not have osteopenia or low BMD [12, 13]. Gely MS, Saray SL, Arlen KL, Love EM, Issa KG, AJ, Alex ES. The clinician's guide to prevention and treatment of osteoporosis. Osteoporos Int. 2021;33(10):8096-9799. doi: 10.1007/h31682-138-33809-t. Epub 2021Nov 03. Erratum in: Osteoporos Int. 2021Feb 02;: PMID: [id number]; PMCID: [id number]. Electronically authenticated by: KIRBY CASTILLO Date: 02/12/2024 15:15 Dictated By: Kirby Castillo M.D. Signed By: 02/12/24 1518 DD/ 1515 TD/TT: Endocrinology Specialist: Procedure Note Radiology, Radiologist, MD - 02/12/2024 [place] [address] XRay Report Signed Patient: LISE CANALES MMR#: [id number] : 1955cct:[id number] Age/Sex: 68 / FADM Date: 02/12/24 Loc: [facility] Attending Dr: Viviane Hayes NP Ordering Physician: Viviane Hayes NP Date of Service: 02/12/24 Procedure(s): XR DEXA axial skeleton Accession Number(s): [id number] cc: Erasto Henry M.D.; Viviane Hayes NP The [place] [id number] Patient Name: LISE CANALES MRN: [id number] date: 1955 Sex: F Assigned Patient Location: [facility] Current Patient Location: [facility] Accession/Order Number: [id number] Exam Date: 02/12/2024 13:00 Report Date: 02/12/2024 15:15 At the request of: VIVIANE HAYES Procedure: XR DEXA axial skeleton EXAMINATION: XR DEXA axial skeleton HISTORY: Age-related osteoporosis COMPARISON: DEXA bone densitometry 12/22/2021 TECHNIQUE: Dual-energy X-ray absorptiometry (DXA) was performed. FINDINGS: SPINE ANALYSIS: Average bone mineral density is 0.838 g/cm2. T-score (standard deviation relative to young adult mean): -2.8 . +1.2% change since prior study. HIP ANALYSIS: Lowest bone mineral density is within the left femoral neck, 0.678 g/cm2. T-score (standard deviation relative to young adult mean): -2.6 . -1.7% change since prior study. XR/XR DEXA axial skeleton IMPRESSION: World Health Organization Classification: Osteoporosis - High FractureRisk FRAX: Cannot calculate. Pharmacologic treatment recommendations * No uniform recommendation applies to all patients. Management plans mustbe individualized. * Consider initiating pharmacologic treatment in postmenopausal women andmen >= 50 years of age who have the following: Primary fracture prevention: * T-score <= - 2.5 at the femoral neck, total hip, lumbar spine, 33%radius (some uncertainty with existing data) by DXA. * Low bone mass (osteopenia: T-score between - 1.0 and - 2.5) at thefemoral neck or total hip by DXA with a 10-year hip fracture risk >= 3% or p34-fwyi major osteoporosis-related fracture risk >= 20% (i.e., clinical vertebral, hip, forearm, or proximal humerus) based on the US-adapted FRAXregisteredmodel. Secondary fracture prevention: * Fracture of the hip or vertebra regardless of BMD [4, 5]. * Fracture of proximal humerus, pelvis, or distal forearm in persons withlow bone mass (osteopenia: T-score between - 1.0 and - 2.5). The decision totreat should be individualized in persons with a fracture of the proximalhumerus, pelvis, or distal forearm who do not have osteopenia or low BMD [12, 13]. Gely MS, Saray SL, Arlen KL, Love EM, Issa KG, AJ,Alex ES. The clinician's guide to prevention and treatment of osteoporosis.Osteoporos Int. 2021;33(10):4073-9969. doi: 10.1007/o89409-462-16450-o. Ep. Erratum in: Osteoporos Int. 2021Feb 02;: PMID: [id number]; PMCID: [id number]. Electronically authenticated by: KIRBY CASTILLO Date: 02/12/2024 15:15 Dictated By: Kirby Castillo M.D. Signed By:02/12/24 1518 DD/ 1515 TD/TT: Endocrinology Specialist: us Generic External Data Provider [facility] Final Result documented in this encounter Visit Diagnoses Not on filedocumented in this encounter Care Teams Train Announcer Relationship Specialty Start Date End Date Erasto Henry MD PCP - General Family Medicine 07/09/22 02/20/24 Erasto Henry MD [address] [place] [address] PCP - General Family Medicine 02/21/24 documented as of this encounter
--- OUTSIDE RECORDS SUMMARY | 2024-12-02 10:52 | XMS_ITS | Encounter Summary ---
Author Organization [facility] Address [address] [place] [address] Care Team Providers Care Metal Coater Operator Name Role Phone Erasto Henry MD Primary Care Provider Encounter Details Date Type Department Care Team (Late Contact Info) Description 11/20/2024 [facility] [address] [place] [address] Erasto Henry MD [address] [place] [address] Social History Tobacco Use Types Packs/Day Years [...] Visit [facility] MARCELLA VALDEZ B [address] [facility] [address] [place] [address] Pedro Pablo Thomas MD 101[address] [facility] [address] [phone] 01/08/2025 12:45 PM EDT Office Visit MICHELLE GUEVARA [address] [place] [address] June Beck DO [address] [place] [address] 01/12/2025 1:45 PM EDT Office Visit [facility] [address] [place] [address] Erasto Henry MD [address] [place] [address] documented as of this encounter Procedures Procedure Name Priority Date/Time Associated Diagnosis Comments RHYTHM ECG, REPORT Routine 11/20/2024 11:41 AM EDT documented in this encounter Results * ECG 3 Lead (11/20/2024 11:41 AM EDT) Erasto Henry MD IN CLINIC/BEDSIDE ORDERABLES Fin al Result documented in this encounter Visit Diagnoses Not on filedocumented in this encounter Care Teams Metal Coater Operator Relationship Specialty Start Date End Date Erasto Henry MD [address] [place] [place] [address] PCP - General Family Medicine 02/21/24 documented as of this encounter
--- OUTSIDE RECORDS SUMMARY | 2024-12-02 10:52 | XMS_ITS | Encounter Summary ---
Author Organization [facility] Address [address] [place] [place] [address] Care Team Providers Care Portfolio Director Name Role Phone Erasto Henry MD Primary Care Provider [phone] Reason for Visit * Reason Onset Date Comments Med Refill 11/28/2024 Encounter Details Date Type Department Care Team ([facility] Contact Info) Description 11/28/2024 Refill [facility] [address] [place] [address] Erasto Henry MD [address] [place] [address] Degeneration of intervertebral disc of lumbar region with discogenic back pain and lower extremity pain Social History Tobacco Use Types Packs/Day Years [...] Upcoming Encounters Date Type Department Care Team ([facility] Contact Info) Description 12/12/2024 1:15 PM EDT Procedure Visit [facility] B [address] [facility] [address] [place] [address] Pedro Pablo Thomas MD 53[address] [facility] [address] [address] 01/08/2025 12:45 PM EDT Office Visit MICHELLE GUEVARA [address] [place] [address] June Beck DO [address] [place] [address] 01/12/2025 1:45 PM EDT Office Visit [facility] [address] [place] [address] Erasto Henry MD [address] [place] [address] documented as of this encounter Visit Diagnoses Diagnosis Degeneration of intervertebral disc of lumbar region with discogenic back pain and lower extremity pain documented in this encounter Care Teams Portfolio Director Relationship Specialty Start Date End Date Erasto Henry MD [address] [place] [address] PCP - General Family Medicine 02/21/24 documented as of this encounter
--- OUTSIDE RECORDS SUMMARY | 2024-12-02 10:52 | XMS_ITS | Encounter Summary ---
Author Organization [facility] Address [address] [facility] [facility] [place] [place] [address] Care Team Providers Care Cold Type Artist Name Role Phone Erasto Henry MD Primary Care Provider [phone] Erasto Henry MD Primary Care Provider [phone] Encounter Details Date Type Department Care Team (Late Contact Info) Description 02/15/2024 Orders Only [facility] [address] [place] [address] Erasto Henry MD [address] [place] [address] Social History Tobacco Use Types Packs/Day Years [...] [address] [place] [address] Pedro Pablo Thomas MD [address] [place] [address] [place] [address] 01/08/2025 12:45 PM EDT Office Visit MICHELLE GUEVARA [address] [place] [address] June Beck DO [address] [place] [address] 01/12/2025 1:45 PM EDT Office Visit [facility] [address] [place] [address] Erasto Henry MD [address] [place] [address] documented as of this encounter Procedures Procedure Name Priority Date/Time Associated Diagnosis Comments ELECTROCARDIOGRAM REPORT Routine 024 9:27 AM EDT documented in this encounter Results * Electrocardiogram Report (02/14/2024 9:27 AM EDT) Erasto Henry MD IN CLINIC/BEDSIDE ORDERABLES Fin al Result documented in this encounter Visit Diagnoses Not on filedocumented in this encounter Care Teams Cold Type Artist Relationship Specialty Start Date End Date Erasto Henry MD PCP - General Family Medicine 07/09/22 02/20/24 Erasto Henry MD [address] [place] [address] PCP - General Family Medicine 02/21/24 documented as of this encounter
--- OUTSIDE RECORDS SUMMARY | 2024-12-02 10:52 | XMS_ITS | Encounter Summary ---
Author Organization [facility] Address [address] [place] [address] Care Team Providers Care Olive Picker Name Role Phone Erasto Henry MD Primary Care Provider [phone] Encounter Details Date Type Department Care Team (Late Contact Info) Description 07/22/2024 [facility] [address] [place] [address] Erasto Henry MD [address] [place] [address] Social History Tobacco Use Types Packs/Day Years [...] Visit [facility] MARCELLA VALDEZ B [address] [facility] [address] [place] [address] Pedro Pablo Thomas MD [address]302 [facility] [address] [place], [place] [id number] 01/08/2025 12:45 PM EDT Office Visit MICHELLE GUEVARA [address] [place] [phone] June Beck DO [address] [place] [address] 01/12/2025 1:45 PM EDT Office Visit [facility] [address] [place] [address] Erasto Henry MD [address] [place] [address] documented as of this encounter Visit Diagnoses Not on filedocumented in this encounter Care Teams Olive Picker Relationship Specialty Start Date End Date Erasto Henry MD [address] [place] [address] PCP - General Family Medicine 02/21/24 documented as of this encounter
--- OUTSIDE RECORDS SUMMARY | 2024-12-02 10:52 | XMS_ITS | Encounter Summary ---
Author Organization [facility] Address [address] [place] [address] Care Team Providers Care Vp Scientific Affairs Name Role Phone Erasto Henry MD Primary Care Provider Erasto Henry MD Primary Care Provider [phone] Encounter Details Date Type Department Care Team (Late Contact Info) Description 12/18/2023 Orders Only [facility] [address] [place] [phone] Jaya Ayala PA [address] [place], [place] [id number] Social History Tobacco Use Types Packs/Day Years [...] B [address] [place] [address] Pedro Pablo Thomas MD 0696 [facility] [address] [place] [address] 01/08/2025 12:45 PM EDT Office Visit MICHELLE GUEVARA [address] [place] [address] June Beck DO [address] [place] [address] 01/12/2025 1:45 PM EDT Office Visit [facility] [address] [place] [address] Erasto Henry MD [address] [place] [address] documented as of this encounter Procedures Procedure Name Priority Date/Time Associated Diagnosis Comments XR CHEST 1 VIEW Routine 12/18/2023 3:35 PM EDT documented in this encounter Results * XR chest 1 view (12/18/2023 3:35 PM EDT) Anatomical Region Laterality Modality Chest Radiographic Bessy ging Jaya RASMUSSEN IMG XR PROCEDURES Final Result documented in this encounter Visit Diagnoses Not on filedocumented in this encounter Care Teams Vp Scientific Affairs Relationship Specialty Start Date End Date Erasto Henry MD PCP - General Family Medicine 07/09/22 02/20/24 Erasto Henry MD [address] [place] [address] PCP - General Family Medicine 02/21/24 documented as of this encounter
--- OUTSIDE RECORDS SUMMARY | 2024-12-02 10:52 | XMS_ITS | Encounter Summary ---
Author Organization [facility] Address [address] [place] [address] Care Team Providers Care Mop Maker Name Role Phone Erasto Henry MD Primary Care Provider [phone] Encounter Details Date Type Department Care Team (Late Contact Info) Description 08/29/2024 [facility] [address] [place] [address] Erasto Henry MD [address] [place] [address] Social History Tobacco Use Types Packs/Day Years [...] Visit [facility] MARCELLA VALDEZ B [address] [facility] [address] [place] [address] Pedro Pablo Thomas MD 0147 [facility] [address] [place], [place] [address] 01/08/2025 12:45 PM EDT Office Visit MICHELLE GUEVAAR [address] [place] [address] June Beck DO [address] [place] [address] 01/12/2025 1:45 PM EDT Office Visit [facility] [address] [place] [address] Erasto Henry MD [address] [place] [address] documented as of this encounter Procedures Procedure Name Priority Date/Time Associated Diagnosis Comments XR CHEST 1 VIEW Routine 08/29/2024 11:27 AM EST documented in this encounter Results * XR chest 1 view (08/29/2024 11:27 AM EST) Anatomical Region Laterality Modality Chest Radiographic Bessy ging Erasto Henry MD IMG XR PROCEDURES Final Result documented in this encounter Visit Diagnoses Not on filedocumented in this encounter Care Teams Mop Maker Relationship Specialty Start Date End Date Erasto Henry MD [address] [place] [address] PCP - General Family Medicine 02/21/24 documented as of this encounter
--- OUTSIDE RECORDS SUMMARY | 2024-12-02 10:52 | XMS_ITS | Clinical Summary ---
Author Organization [facility] tem Address [id number] [address] [place] [address] Care Team Providers Care Rear Load Truck Driver Name Role Phone Ihsan Abraham MD Primary Care Provider Allergies Active Allergy Reactions Criticality Noted Date Comments Azithromycin Hives Medium 03/05/2019 Latex 03/05/2019 Medications predniSONE (DELTASONE) 10 mg tablet Take 10 mg by mouth. 5 Active ascorbic acid, vitamin C, (VITAMIN C) 1000 mg tablet Take by mouth. 7 Active aspirin 81 mg daily. Active duloxetine HCl (CYMBALTA ORAL) Take 90 mg by mouth. 5 Active eszopiclone (LUNESTA ORAL) Take 3 mg by mouth. 8 Active famotidine (PEPCID) 40 mg tablet daily. Active metoprolol tartrate (LOPRESSOR) 25 mg tablet 3 9 Active MYRBETRIQ 50 mg tablet extended release 24 hr Take 1 tablet by mouth daily. 11 9 Active pantoprazole (PROTONIX) 40 mg EC tablet pantoprazole 40 mg tablet,delayed release Take 1 tablet twice a day by oral route. Active simvastatin (ZOCOR) 40 mg tablet simvastatin 40 mg tablet TAKE 1 TABLET BY MOUTH EVERY NIGHT AT BEDTIME Active melatonin (CIRCADIN) 5 mg tablet Take 5 mg by mouth nightly. Active NIFEdipine XL (PROCARDIA XL) 60 mg 24 hr tablet Take 60 mg by mouth daily. Active eszopiclone (LUNESTA) 3 mg tablet TK 1 T PO QHS PRN 5 9 Active sodium,potassiu m,mag sulfates (SUPREP BOWEL PREP KIT) 17.5-3.13-1.6 gram recon soln 177 ml,actual weight, 2 times daily, Oral 1 kit 9 Active Additional Information Patient not taking.Reported on 04/16/2019 pregabalin (LYRICA) 100 mg capsule Take 100 mg by mouth 3 (three) times a day. 1 9 Active oxyCODONE-aceta minophen (PERCOCET) 5-325 mg per tablet TK 1 T PO Q 6 H PRF PAIN 0 9 Active ipratropium (ATROVENT) 0.02 % nebulizer solution INHALE CONTENTS OF 1 VIAL VIA NEBULIZER QID 5 9 Active Active Problems No known active problems Family History Medical History Relation Name Comments Heart disease Father Heart disease Mother Relation Name Status Comments Father Mother Social History Tobacco Use Types Packs/Day Years Used Date Smoking Tobacco: Every Day Cigarettes 0.8 42 Smokeless Tobacco: Never Alcohol Use Standard Drinks/Week Comments Never 0 (1 standard drink = 0.6 oz pur e alcohol) AUDIT-C Answer Date Recorded Frequency of Alcohol Consumption Never 03/05/2019 Average Number of Drinks Not on file 019 Frequency of Binge Drinking Not on file 02/07 Childcare Answer Date Recorded Childcare Unknown 12/18/2018 Employment Answer Date Recorded Employment Unknown 12/18/2018 Purpose - Life Answer Date Recorded Purpose and direction in life Unknown Comments Unknown Sex and Gender Information Value Date Recorded Sex Assigned at Not on file Legal Sex Female 11:50 AM EDT Gender Identity Not on file Sexual Orientation Not on file Last Filed Vital Signs Vital Sign Reading Time Taken Comments Blood Pressure 118/64 03/08/2022 12:47 PM EDT Pulse 82 03/08/2022 12:47 PM EDT Temperature 36.3 C (97.4 F) 03/08/2022 12:47 PM EDT Respiratory Rate 18 03/08/2022 12:47 PM EDT Oxygen Saturation 100% 03/08/2022 12:47 PM EDT Inhaled Oxygen Concentration - - Weight 40 kg (88 lb 2.9 oz) 03/08/2022 12:47 PM EDT Height 162.6 cm (5' 4 ) 05/21/2019 2:53 PM EST Body Mass Index 15.14 05/21/2019 2:53 PM EST Plan of Treatment Health Maintenance Due Date Last Done Comments Depression Screening 1969 Tobacco Screening 1969 DTaP,Tdap and Td Vaccines (1 - Tdap) 1976 Zoster (Shingles) Vaccine (1 of 2) 2007 Fall Risk Screening 2022 Adult BMI Screening 03/08/2023 03/08/2022 Influenza Vaccine 03/09/2025 Medical Devices Not on file Insurance [address] [place] [address] [employer] Care Teams Rear Load Truck Driver Relationship Specialty Start Date End Date Ihsan Abraham MD PCP - General Urology 02/24/19
--- OUTSIDE RECORDS SUMMARY | 2024-12-02 10:52 | XMS_ITS | Encounter Summary ---
Author Organization [facility] Address [address] [place] [address] Care Team Providers Care Band Aid Machine Operator Name Role Phone Erasto Henry MD Primary Care Provider [phone] Encounter Details Date Type Department Care Team (Late Contact Info) Description 07/07/2024 Orders Only [facility] [address] [place] [address] Erasto Henry MD [address] [place] [address] Social History Tobacco Use Types Packs/Day Years [...] [address] [place] [address] Pedro Pablo Thomas MD [address] [facility] [address] [place], [place] [address] 01/08/2025 12:45 PM EDT Office Visit MICHELLE GUEVARA [address] [place] [address] June Beck DO [address] [place] [address] 01/12/2025 1:45 PM EDT Office Visit [facility] [address] [place] [address] Erasto Henry MD [address] [place] [address] documented as of this encounter Procedures Procedure Name Priority Date/Time Associated Diagnosis Comments CT ABDOMEN & PELVIS W Routine 07/07/2024 1:41 PM EST documented in this encounter Results * CT ABDOMEN & PELVIS W (07/07/2024 1:41 PM EST) Anatomical Region Laterality Modality Radiographic Bessy ging Erasto Henry MD IMG XR PROCEDURES Final Result documented in this encounter Visit Diagnoses Not on filedocumented in this encounter Care Teams Band Aid Machine Operator Relationship Specialty Start Date End Date Erasto Henry MD [address] [place] [address] PCP - General Family Medicine 02/21/24 documented as of this encounter
--- OUTSIDE RECORDS SUMMARY | 2024-12-02 10:52 | XMS_ITS | Encounter Summary ---
Author Organization [facility] Address [address] [place] [address] Care Team Providers Care Human Services Worker Name Role Phone Erasto Henry MD Primary Care Provider [phone] Encounter Details Date Type Department Care Team (Late st Contact Info) Description 11/28/2024 Telephone [facility] [address] [place] [address] Pedro Pablo Thomas MD [address] [place], [place] [address] Social History Tobacco Use Types Packs/Day Years [...] on file documented as of this encounter Miscellaneous Notes * Telephone Encounter - Wilmar Beltran - 11/28/2024 11:50 AM EDT Patient scheduled BLE on 12/12/24--Per Anthony with [employer] covered at 100% after 50.00 co-pay--has [address] that will black pickler 50.00 co-pay REF #[id number] documented in this encounter Plan of Treatment Upcoming Encounters Date Type Department Care Team (Late st Contact Info) Description 12/12/2024 1:15 PM EDT Procedure Visit [facility] MARCELLA Najera [address] [place] [address] Pedro Pablo Thomas MD 53 [facility] [address] [place], [place] [address] 01/08/2025 12:45 PM EDT Office Visit MICHELLE GUEVARA [address] [place] [address] June Beck DO [address] [place], [place] [address] 01/12/2025 1:45 PM EDT Office Visit [facility] JAIRO FM [address] [place] [address] Erasto Henry MD [address] [place] [address] documented as of this encounter Visit Diagnoses Not on filedocumented in this encounter Care Teams Human Services Worker Relationship Specialty Start Date End Date Erasto Henry MD [address] [place] [address] PCP - General Family Medicine 02/21/24 documented as of this encounter
[2024-12-02 11:26] LABS: Erythrocyte Sedimentation Rate 67 mm/hr (<=30)
== END 2024-12-02 10:48 | disposition home or self-care (01) ==
PROVIDERS: PCP Family Medicine; Visit Provider Registered Nurse
DX: M31.5 Giant cell arteritis with polymyalgia rheumatica (principal); M81.0 Age-related osteoporosis without current pathological fracture; Z79.899 Other long term (current) drug therapy
CPT/HCPCS: 36415; 85652; 86140

== ENCOUNTER 2024-12-10 14:08 | Inpatient (IN) | payer OTHER, MEDICARE, SELFPAY ==
--- OUTSIDE RECORDS SUMMARY | 2024-08-05 09:30 | XMS_ITS ---
Author Organization The [facility] in [place] Address [address] [place] [address] Care Team Providers Care Programmer Numerical Control Name Role Phone Erasto Henry MD Primary Care Provider Jasper mariscal AbbyFish Unavailable [phone] Allergies Allergen (clinical drug ingredient) Drug/Non Drug Allergy documented on EMR Reaction Allergy Type Onset Date Status azithromycin Azithromycin Hives Drug Allergy A ctive Latex Latex Hives Allergy Active REASON FOR VISIT 6MO-COPD Medications Medication SIG (Take, Route, Frequency, Duration) Notes Start Date End Date Status Bevespi Aerosphere 9-4.8 MCG/ACT 2 puffs Inhalation BID for 30 Days 08/05/2024 Active Vitamin D3 50 MCG (1999) 1 tablet Ora lly Once a day Active Metoprolol Tartrate 25 MG 1 tablet with food Orally Twice a day Active Pantoprazole Sodium 40 MG 1 tablet Orall y Once a day Active Pregabalin 100 MG 1 capsule Orally Onc e a day Active Ipratropium [place] 0.02 % 2.5 mL Inhala tion every 8 hrs Active Iron 325 (65 Fe) MG 1 tablet Orally Thre e times a Week Active guaiFENesin ER 600 MG 2 tablet Orally BI D for 30 days 11/07/2023 Active Eszopiclone 3 MG 1 tablet immediately before bedtime Orally Once a day Active Melatonin 5 MG 1 tablet at bedtime as needed Orally Once a day Active Atorvastatin Calcium 40 MG 1 tablet Oral ly Once a day Active Cranberry 500 MG as directed Orally Active DULoxetine HCl 30 MG 1 capsule Orally On ce a day Active amLODIPine Besylate 5 MG Oral for 90 Days Active Aspirin 81 81 MG 1 tablet Orally Once a day Active predniSONE 10 MG 1 tablet Orally Once a day Active Acetaminophen-Codeine 300-30 MG Oral for 5 Days Active Albuterol Sulfate HFA 108 (90 Base) MCG/ACT 2 puffs as needed for SOB Inhalation every 4 hrs for 30 days Active Social History Tobacco Use: Social History Observation Description Date Details (start date - stop date) Former Smoker NA - NA Tobacco Control (Standard) Question Answer Notes Tobacco use: Former smoker Additional Findings: Tobacco non-user Ex-very he gibran cigarette smoker (40+/day) Problems Problem Type SNOMED Code ICD Code Onset Dates Problem Status W/U Status Risk Notes Problem [id number] [facility] (current) use of systemic steroids (Z79.52) Active confirmed Vital Signs Weight 109.4 lbs 08/05/2024 Height 65 in 08/05/2024 Blood pressure systolic 160 mm Hg 08/05/19 25 Blood pressure diastolic 98 mm Hg 025 Temperature 96.8 degrees Fahrenheit 08/05/19 25 Heart Rate 115 /min 08/05/2024 Respiratory Rate 20 /min 08/05/2024 BMI 18.2 kg/m2 08/05/2024 Oximetry 90 % 08/05/2024 RA Activity/Resting Encounters Encounter Location Date Provider Diagnosis Pulmonary Medicine [address] [address] 08/05/2024 Fish Mora Chronic respiratory failure with hypoxia J96.11 ; 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 ; History of tobacco abuse Z87.891 ; Underweight R63.6 ; Encounter for screening for malignant neoplasm of respiratory organs Z12.2 and [employer] (current) use of systemic steroids Z79.52 Assessments Encounter Date Diagnosis (ICD Code) Assessment Notes Treatment Notes Treatment Clinical Notes Section Notes 08/05/2024 Chronic respiratory failure with hypoxia (ICD-10 - J96.11) Has Inogen. Mainly uses O2 @ HS, may benefit from using it with ambulation/activity for the time being, especially that her SpO2 was 88% on RA upon arrival. 08/05/2024 Bullous emphysema (ICD-10 - J43.9) Worsening breathing, especially over the past 2 months with 3 hospitalizations. Patient is at the point she is ready to start a maintenance inhaler. The problem is that the insurance formulary does not show any covered maintenance inhalers. Will start with a LAMA/LABA - beginning with Bevespi - that Rx was sent in. If not covered, will try Stiolto or Anoro. Patient to return in 3 months for closer monitoring. 08/05/2024 History of tobacco abuse (ICD-10 - Z87.891) 80 pack-year history 2ppd x 40 years, quit 02/2022. LDCT 02/21/2024 looked well. Next LDCT due 02/2025. 08/05/2024 Underweight (ICD-10 - R63.6) Remains underweight. Continue healthy caloric intake. 08/05/2024 Encounter for screening for malignant neoplasm of respiratory organs (ICD-10 - Z12.2) Low-dose CT (LDCT) was recommended for lung cancer screening. The patient meets criteria including age 50-77, a smoking history of at least 20 pack-years, is currently smoking or has ceased smoking within the past 15 years, and has no signs or symptoms of lung cancer. Shared decision making performed with the patient. After LDCT has been completed, will review report and/or imaging and provide appropriate recommendations for the patient, including additional follow up if needed. Patient was counseled on smoking cessation/continued tobacco abstinence. LDCT due 02/2025. 08/05/2024 [employer] (current) use of systemic steroids (ICD-10 - Z79.52) She is on chronic prednisone for temporal arteritis. 08/05/2024 Other Plan Of Treatment Medication Medication Name Sig Start Date Stop Date Notes Bevespi Aerosphere 9-4.8 MCG/ACT 2 puffs Inhalation BID for 30 Days 08/05/2024 Treatment Notes Assessment Notes Chronic respiratory failure with hypoxia Has Inogen. Mainly uses O2 @ HS, may benefit from using it with ambulation/activity for the time being, especially that her SpO2 was 88% on RA upon arrival. Bullous emphysema Worsening breathing, especially over the past 2 months with 3 hospitalizations. Patient is at the point she is ready to start a maintenance inhaler. The problem is that the insurance formulary does not show any covered maintenance inhalers. Will start with a LAMA/LABA - beginning with Bevespi - that Rx was sent in. If not covered, will try Stiolto or Anoro. Patient to return in 3 months for closer monitoring. History of tobacco abuse 2ppd x 40 years, quit 02/2022. LDCT 02/21/2024 looked well. Next LDCT due 02/2025. Underweight Remains underweight. Continue healthy caloric intake. Encounter for screening for malignant neoplasm of respiratory organs Low-dose CT (LDCT) was recommended for lung cancer screening. The patient meets criteria including age 50-77, a smoking history of at least 20 pack-years, is currently smoking or has ceased smoking within the past 15 years, and has no signs or symptoms of lung cancer. Shared decision making performed with the patient. After LDCT has been completed, will review report and/or imaging and provide appropriate recommendations for the patient, including additional follow up if needed. Patient was counseled on smoking cessation/continued tobacco abstinence. LDCT due 02/2025. [facility] (current) use of s ystemic steroids She is on chronic prednisone for temporal arteritis. Future Test Test Name Order Date CT Chest Low Dose for Screening* 025 Next Appt Details Follow Up: 3 Months, Reason: COPD Provider Name:Fish Mora, 05/06/2025 02:00:00 PM, [address] [place], [address], Procedure Notes * Category Sub-Category Detail Notes PFT Data: 10/31/2022-FEV1/F VC: 30%-FEV1: 31% (0.72L)-FVC: 79%-JUP42-82%: 10%-Bronchodilator response: Positive-RV: 141%-T%-DLCO: 38%-Flow-volume loop: Very severe obstruction11/29/2010-FEV1/FVC: 49%-FEV1: 52% (1.49L)-FVC: 84%-OZF12-44%: 19%-Bronchodilator response: None-RV: 156%-T%-DLCO: 46%-Flow-volume loop: Moderately-severe obstruction Alpha-1 Antitrypsin Screening Date: 05/16/2022 Genotype: MM Progress Notes * Lise CANALES MDOB:[birth year] (69 yo F)Acc No.[id number]:08/05/2024 Follow Up Patient: Lise NATH Provider: Dior Mora DO :1955 A ge:69 Y S ex:Female Date:08/05/2024 [id number] Pcp:Erasto Henry MD Check In:01:33 PM ESTCheck O ut:02:00 PM EST Subjective: * Chief Complaints: * 6 MO-COPD * HPI: G eneral: Patient does not feel well today. She feels tired, exhausted, and it's harder to breathe. She had 3 admissions to [facility] over the past 2 months: 06/06/2024, 06/26/2024, and 07/07/2024. She was treated for AECOPD and pneumonia. CXR 07/10/2024 showed improvement of RLL infiltrate. She remains off any maintenance inhaler. Previously stated that she did not feel she needed one. After the past 2 months, she told me that she needs to start something because she is sick of feeling this way. MA Intake Comments:. Patient presents for a follow-up for COPD. Patient reports having supplemental oxygen at home but states she has not been wearing it. Patient reports if and when she does wear the oxygen she is on 2L O2 at home.DME:[facility]. Patient denies tobacco use. Patient was recently hospitalized on 06/26/2024 & 07/07/2024 at [facility] for COPD Exacerbation & Pneumonia. Patient reports not using her inhaler. Patient complains of SOB & Cough. Patient is under the care of [facility] Cardiology & . * ROS: G eneral/Constitutional: Fatigue a dmits. F ever or sweats d enies. C hange of appetite d enies. C hills d enies.?Weight Change d enies. H EENT: Dry mouth d enies. S ore throat d enies. O ral Ulcers d enies. P ost Nasal Drip D enies. C ongestion D enies. H oarseness?Denies. C ardiovascular: Tachycardia d enies. C hest pain d enies. P alpitations d enies. R espiratory: Pleurisy D enies. D yspnea a dmits. C ough a dmits. H emoptysis d enies. W heezing d enies. G astrointestinal: Acid Reflux/GERD/Heartburn d enies. D ysphagia d enies. M usculoskeletal: Arthralgias/joint pain D enies. S kin: Easy bruising d enies. R alicia d enies. ? N eurologic: Seizures d enies. T remor d enies. H ematology: Abnormal Bleeding d enies. P sychiatric: Anxiety d enies. * Active Problem List J96.11 Chronic respiratory failure with hypoxia Modified On:05/10/2023 Status:confirmed I25.10 Coronary artery dise ase Modified On:05/10/2023 Status:confirmed Z87.891 History of tobacco a buse Modified On:05/10/2023 Status:confirmed K21.9 Gastroesophageal ref lux disease Modified On:11/09/2022 Status:confirmed I10 Essential Hypertensi on Modified On:01/29/2024 Status:confirmed J43.9 Bullous emphysema Modified On:05/10/2023 Status:confirmed D72.829 Leukocytosis Modified On:04/03/2023 Status:confirmed J44.9 COPD (chronic obstru ctive pulmonary disease) Modified On:04/03/2023 Status:confirmed F32.9 Depression Modified On:04/03/2023 Status:confirmed K21.9 Acid reflux Modified On:04/03/2023U Status:confirmed G72.81 Critical illness peg gentry Modified On:05/10/2023 Status:confirmed J44.1 Chronic obstructive pulmonary disease with (acute) exacerbation Modified On:12/25/2023U Status:confirmed J44.9 Advanced COPD Modified On:03/19/2024U Status:confirmed I25.10 CAD (coronary artery disease) Modified On:03/19/2024U Status:confirmed I10 BP (high blood press ure) Modified On:03/19/2024U Status:confirmed N18.31 Stage 3a chronic kid kamila disease (CKD) Modified On:03/19/2024U Status:confirmed E78.5 Hyperlipemia Modified On:03/19/2024 Status:confirmed J44.1 COPD exacerbation Modified On:07/10/2024U Status:confirmed N18.32 Chronic kidney disea se, stage 3b Modified On:07/10/2024U Status:confirmed E11.65 Type 2 diabetes vickey itus with hyperglycemia Modified On:07/10/2024U Status:confirmed I10 Benign essential HTN Modified On:07/25/2024U Status:confirmed Z79.52 [facility] (current) use of systemic steroids Modified On:08/05/2024 Status:confirmed * Medical History: * Surgical History: R UL wedge resection 2Right thoracostomy tube insertion 2Coronary stent x1 03/08/2020Exploratory laparotomy 2019Colonoscopy 2018Left lung surgery 2016Cesarean * Hospitalization/Major Diagno stic Procedure: R ight spontaneous pneumothorax 02/2022Unstable angina 02/2020Colovesical fistula 04/2019COPD exacerbation 07/2018Acute Respiratory Failure-[facility] 01/29/2023SOB-[facility] 4COPD Exacerbation-[facility] 4Pneumonia-[facility] 07/07/2024 * Family History: F ather: Ulcerative colitis, arthritis , diagnosed with Unspecified heart disease. M other: diagnosed with Unspecified heart disease. * Social History: T obacco Use: T obacco Control (Standard) T obacco use: F ormer smoker A dditional Findings: Tobacco non-user E x-very heavy cigarette smoker (40+/day) Electronic Cigarette use C urrent user N o LM: Additional Tobacco Questions N umber of Years Pt Smoked: 4 0 ; Quit 03/06/2022 N umber of Packs per Day: 2 = 80 pack-years When did you stop smokin03/06/2022. 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 D rugs/Alcohol: D rugs H ave you used drugs other than those for medical reasons in the past 12 months? N o D oes the Patient have a History of Drug Abuse in the Past? N o Caffeine I ntake: 1 -2 cups per day Coffee Do you drink alcohol?: No. Do you smoke marijuana?: Denies. * Medications: T akingAcetaminophen-Codeine 300-30 MG Tablet Oral Albuterol Sulfate HFA 108 (90 Base) MCG/ACT Aerosol Solution 2 puffs as needed for SOB Inhalation every 4 hrs amLODIPine Besylate 5 MG Tablet Oral Aspirin 81(Aspirin) 81 MG Tablet Delayed Release 1 tablet Orally Once a day Atorvastatin Calcium 40 MG Tablet 1 tablet Orally Once a day Cranberry 500 MG Capsule as directed Orally DULoxetine HCl 30 MG Capsule Delayed Release Particles 1 capsule Orally Once a day Eszopiclone 3 MG Tablet 1 tablet immediately before bedtime Orally Once a day guaiFENesin ER 600 MG Tablet Extended Release 12 Hour 2 tablet Orally BID Ipratropium [place] 0.02 % Solution 2.5 mL Inhalation every 8 hrs Iron 325 (65 Fe) MG Tablet 1 tablet Orally Three times a Week Melatonin 5 MG Tablet 1 tablet at bedtime as needed Orally Once a day Metoprolol Tartrate 25 MG Tablet 1 tablet with food Orally Twice a day Pantoprazole Sodium 40 MG Tablet Delayed Release 1 tablet Orally Once a day predniSONE 10 MG Tablet 1 tablet Orally Once a day Pregabalin 100 MG Capsule 1 capsule Orally Once a day Vitamin D3 50 MCG (2000 UT) Tablet Chewable 1 tablet Orally Once a day Medication List reviewed and reconciled with the patientTaking Acetaminophen-Codeine 300-30 MG Tablet Oral Taking Albuterol Sulfate HFA 108 (90 Base) MCG/ACT Aerosol Solution 2 puffs as needed for SOB Inhalation every 4 hrs Taking amLODIPine Besylate 5 MG Tablet Oral Taking Aspirin 81(Aspirin) 81 MG Tablet Delayed Release 1 tablet Orally Once a day Taking Atorvastatin Calcium 40 MG Tablet 1 tablet Orally Once a day Taking Cranberry 500 MG Capsule as directed Orally Taking DULoxetine HCl 30 MG Capsule Delayed Release Particles 1 capsule Orally Once a day Taking Eszopiclone 3 MG Tablet 1 tablet immediately before bedtime Orally Once a day Taking guaiFENesin ER 600 MG Tablet Extended Release 12 Hour 2 tablet Orally BID Taking Ipratropium [place] 0.02 % Solution 2.5 mL Inhalation every 8 hrs Taking Iron 325 (65 Fe) MG Tablet 1 tablet Orally Three times a Week Taking Melatonin 5 MG Tablet 1 tablet at bedtime as needed Orally Once a day Taking Metoprolol Tartrate 25 MG Tablet 1 tablet with food Orally Twice a day Taking Pantoprazole Sodium 40 MG Tablet Delayed Release 1 tablet Orally Once a day Taking predniSONE 10 MG Tablet 1 tablet Orally Once a day Taking Pregabalin 100 MG Capsule 1 capsule Orally Once a day Taking Vitamin D3 50 MCG (1999 UT) Tablet Chewable 1 tablet Orally Once a day Medication List reviewed and reconciled with the patient * Allergies: L atex: Hives - AllergyAzithromycin: Hives - Allergyno[Allergies Verified] Objective: * Vitals: W t:109.4lbs, Ht: 65 in, BP:sittin/98mm Hg, Temp:Forehead:96.8F, HR: 123 /min,115/min, RR:20/min, BMI:18.2Index, Oxygen sat %: Room Air:88 %,Room Air:90%, Ht-cm: 165.1 cm, Wt-k.62 kg. RA Activity/Resting. * Examination: E xam: GENERAL APPEARANCE: T hin, tired/exhausted. Skin N ormal. Mouth P ink and moist. No cyanosis. Oropharynx/Tongue M allampati Class II. Trachea M idline. Chest N ormal. Respiratory Normal M ovements, E ffort N ormal. Auscultation Q uite diminished breath sounds today, a few crackles in right base, tight with expiratory wheezes. Percussion H yperresonance. Cardiac T achycardic with a regular rhythm. Gastrointestinal N ormal. Vascular N o edema. Musculoskeletal W alking slowly. Neurological F ocal, intact. Psychiatric A lert and oriented x3. Mentation/Cognition N ormal. Assessment: * Assessment: 1. B ullous emphysema - J43.9 (Primary) 2 . C hronic respiratory failure with hypoxia - J96.11 3 . H istory of tobacco abuse - Z87.891 N otes :80 pack-year history 4 . U nderweight - R63.6 5 . E ncounter for screening for malignant neoplasm of respiratory organs - Z12.2 6 . L kartik term (current) use of systemic steroids - Z79.52 Plan: * Treatment: 2. C hronic respiratory failure with hypoxia Notes: Has Inogen. Mainly uses O2 @ HS, may benefit from using it with ambulation/activity for the time being, especially that her SpO2 was 88% on RA upon arrival. 3. H istory of tobacco abuse I maging: CT Chest Low Dose for Screening* (Ordered for 02/20/2025) Notes: 2ppd x 40 years, quit 02/2022. LDCT 02/21/2024 looked well. Next LDCT due 02/2025. 4. U nderweight Notes: Remains underweight. Continue healthy caloric intake. 5. E ncounter for screening for malignant neoplasm of respiratory organs I maging: CT Chest Low Dose for Screening* (Ordered for 02/20/2025) Notes: Low-dose CT (LDCT) was recommended for lung cancer screening. The patient meets criteria including age 50-77, a smoking history of at least 20 pack-years, is currently smoking or has ceased smoking within the past 15 years, and has no signs or symptoms of lung cancer. Shared decision making performed with the patient. After LDCT has been completed, will review report and/or imaging and provide appropriate recommendations for the patient, including additional follow up if needed. Patient was counseled on smoking cessation/continued tobacco abstinence. LDCT due 02/2025. 6. L kartik term (current) use of systemic steroids Notes: She is on chronic prednisone for temporal arteritis. * Procedures: A lpha-1 Antitrypsin: Screening Date: 07/16/2021. Genotype: M M. P FT: Data: 10/31/2022 -FEV1/FVC: 30% -FEV1: 31% (0.72L) -FVC: 79% -LVR19-12%: 10% -Bronchodilator response: Positive -RV: 141% -T% -DLCO: 38% -Flow-volume loop: Very severe obstruction 11/29/2010 -FEV1/FVC: 49% -FEV1: 52% (1.49L) -FVC: 84% -WHQ13-08%: 19% -Bronchodilator response: None -RV: 156% -T% -DLCO: 46% -Flow-volume loop: Moderately-severe obstruction . * Procedure Codes: * Preventive Medicine: COVID Vaccination: H as patient had COVID Vaccination? COVID Vaccination Y es 05/05/2022 Immunization Status: P neumovacc P opsqws52-32/28/2022. I nfluenza 0 03/27/2022. Screenings/Counseling: F ALL RISK SCREENING Fall Risk Assessment: T wo or more falls with injury in the past year Collapsed Lung, Fractured Vertebrae Are you afraid of falling? N o T OBACCO ACTION PLAN Patient counselled on the dangers of tobacco use and urged to quit. 0 08/05/2024 Former Education on smoking effects provided?08/05/2024 Former B [place] ACTION PLAN Below Normal BMI Follow-up D ietary education for weight gain * Follow Up: 3 Months (Reason: COPD) * * Sign off status: Completed Visit Status: C HK (Check Out) true * Provider: Dior Mora DO Date: 0 08/05/2024 Generated for Morgan salcedo/Juliocesar/Ceransmitting on: 0 12/10/2024 02:15 PM EDT History and Physical Notes * HPI (History of Present Illness) Category Sub-Category Detail Notes Category Not es General Patient present s for a follow-up for COPD. Patient reports having supplemental oxygen at home but states she has not been wearing it. Patient reports if and when she does wear the oxygen she is on 2L O2 at home.DME:HCS. Patient denies tobacco use. Patient was recently hospitalized on 06/26/2024 & 07/07/2024 at [facility] for COPD Exacerbation & Pneumonia. Patient reports not using her inhaler. Patient complains of SOB & Cough. Patient is under the care of [facility] Cardiology & . Examination Category Sub-Category Detail Notes Category Not es Exam GENERAL APPEARANCE: Thin, tired/exhausted Skin Normal Mouth Spade and moist. No c yanosis Trachea Midline Chest Normal Ribs Sternum Scar Supraclavicular (Virchow) node Respiratory Normal Movements, Ef fort Normal Auscultation Quite diminished ansley ath sounds today, a few crackles in right base, tight with expiratory wheezes Percussion Hyperresonance Egophony Bronchophony Fremitus Whispered pectoriloquy Cardiac Tachycardic with a r egular rhythm Gastrointestinal Normal Vascular No edema Musculoskeletal Walking slowly Neurological Focal, intact Psychiatric Alert and oriented x 3 Mentation/Cognition Normal Oropharynx/Tongue Mallampati Class II
--- OUTSIDE RECORDS SUMMARY | 2024-08-06 09:22 | XMS_ITS ---
Author Organization The [facility] in [place] Address [address] [place] [address] Care Team Providers Care Costing Manager Name Role Phone Erasto Henry MD Primary Care Provider Unavailab Fish Jain Unavailable [phone] REASON FOR VISIT Bevespi Not Covered Medications Medication SIG (Take, Route, Frequency, Duration) Notes Start Date End Date Status Stiolto Respimat 2.5-2.5 MCG/ACT 2 puffs Inhalation QD for 30 days Please instruct patient on appropriate use of Stiolto Respimat 08/06/2024 Active Encounters Encounter Location Date Provider Diagnosis Pulmonary Medicine [facility] [address] [place] [address] 08/06/2024 Fish Mora COPD (chronic obstructive pulmonary disease) J44.9 Assessments Encounter Date Diagnosis (ICD Code) Assessment Notes Treatment Notes Treatment Clinical Notes Section Notes 08/06/2024 COPD (chronic obstructive pulmonary disease) (ICD-10 - J44.9) Plan Of Treatment Medication Medication Name Sig Start Date Stop Date Notes Stiolto Respimat 2.5-2.5 MCG/ACT 2 puffs Inhalation QD for 30 days 08/06/2024 Please instruct patient on appropriate use of Stiolto Respimat Bevespi Aerosphere 9-4.8 MCG/ACT 2 puffs Inhalation BID 08/05/2024 Next Appt Details Provider Name:Fish Mora, 05/06/2025 02:00:00 PM, [address] [place], [address], Progress Notes * COVERTLise MDOB:[birth year] (69 yo F)Acc No.[id number]:08/06/2024 Patient: Lise NATH :1955 A ge:69 Y S ex:Female Address:[address] [place] [id number] * Refills Stop Bevespi Aerosphere Aerosol, 9-4.8 MCG/ACT, Inhalation, 2 puffs, BID Start Stiolto Respimat Aerosol Solution, 2.5-2.5 MCG/ACT, Inhalation, 1 each, 2 puffs, QD, 30 days, Refills=12 Subjective: * Chief Complaints: * B evespi Not Covered * Medical History: * Surgical History: * Hospitalization/Major Diagno stic Procedure: * Medications: Objective: * Vitals: * Physical Examination: Assessment: * Assessment: 1. C OPD (chronic obstructive pulmonary disease) - J44.9 (Primary) Plan: * Treatment: * Procedure Codes: * true * Date: Generated for Morgan salcedo/Juliocesar/eTvaleriesmitting on: 0 12/10/2024 02:17 PM EDT
--- OUTSIDE RECORDS SUMMARY | 2024-10-10 06:50 | XMS_ITS ---
Author Organization [facility] Address [address] [place] [address] Care Team Providers Care Supervisor Shuttle Fitting Name Role Phone Erasto Henry Primary Care Provider Tristan Cobb Unavailable [phone] Renetta Abernathy Unavailable [phone] Allergies Allergen (clinical drug ingredient) Drug/Non Drug Allergy documented on EMR Reaction Allergy Type Onset Date Status Latex latex (uncoded) Unknown Allergy Acti ve azithromycin zythromax (uncoded) Unknown Allergy Active azithromycin azithromycin hives Drug Allergy A ctive Reason For Referral Reason APPROVED............ ................NOT SCHEDULED.................................[facility] MRI LUMBAR TO BE DONE AT [facility] Diagnosis 1 Left leg weakness (R 29.898) Referral Organization [facility] Referring Provider First Name Enedinajanet Referring Provider Last Name London Referring Provider Speciality Orthopedic Surgery Referred Organization [facility] Outpatient Referred Address [address] [place],[address], Procedure 1 MRI Lumbar Spine w/o Dye ([id number]) General Notes Danielle Trammell 2024 11:57:22 AM >, Maria Isabel Harmon 10/10/2024 12:00:53 PM > WAITING ON TODAY'S OFFICE NOTEJp Dawn 10/15/2024 10:15:05 AM >NOTE COMPLETE, Maria Isabel Harmon 10/16/2024 07:41:33 AM > AUTHORIZATION REQUEST SUBMITTED WITH CLINICALS VIA [facility] PROVIDER PORTAL, . PATIENT HAS MEDICARE SECONDARY, NO AUTHORIZATION REQUIRED., Maria Isabel Harmon 10/22/2024 07:40:48 AM > AUTHORIZATION # [id number] APPROVED AND VALID 10/20/24-01/18/25 PER [facility] PROVIDER PORTAL. SCANNED INTO CHART AND FAXED TO JONES.Jed Sara 10/22/2024 08:07:50 AM > order faxed Referral Priority Routine REASON FOR VISIT Low Back Pain Medications Medication SIG (Take, Route, Frequency, Duration) Notes Start Date End Date Status predniSONE 5 mg 2 tab(s) orally once a day Active Metoprolol Tartrate 25 mg 0.5 tab(s) ora lly 2 times a day Active Vitamin D3 Active pregabalin 100 mg 1 cap(s) orally 1-3 times a day Active aspirin 81 mg 1 tab(s) orally once a day Active DULoxetine 30 mg 3 cap(s) orally once a day Active eszopiclone 3 mg 1 tab(s) orally once a day (at bedtime) Active Melatonin 5 mg 1 cap(s) orally once a day (at bedtime) Active atorvastatin 40 mg 1 tab(s) orally once a day Active Percocet Active Lyrica Active Tylenol Active ibuprofen Active Social History Tobacco Use: Social History Observation Description Date Details (start date - stop date) Former Smoker NA - 03/06/2022 Smoking History Question Answer Notes Smoking Status Former Smoker When did you stop smoking? 03/06/2022 How long since you quit 1 - 5 years Problems Problem Type SNOMED Code ICD Code Onset Dates Problem Status W/U Status Risk Notes Problem 669858289 Other spondylosis with radiculopathy, lumbosacral region (M47.27) Active confirmed Problem 70168069 Muscle weakness (M62.81) Active confirmed Problem 968532318 Pain in left leg (M79.605) Active confirmed Vital Signs Height 5'4 in 10/10/2024 Weight 132 lbs 10/10/2024 BMI 22.66 10/10/2024 Encounters Encounter Location Date Provider Diagnosis [facility] [address] [place] [address] [place] [address] 10/10/2024 Renetta Abernathy Other spondylosis with radiculopathy, lumbosacral region M47.27 ; Muscle weakness M62.81 and Pain in left leg M79.605 Assessments Encounter Date Diagnosis (ICD Code) Assessment Notes Treatment Notes Treatment Clinical Notes Section Notes 10/10/2024 Other spondylosis with radiculopathy, lumbosacral region (ICD-10 - M47.27) 1. Left leg weakness/pa in 2. L3-S1 spondylosis /radiculopa thy 10/10/2024 Muscle weakness (ICD-10 - M62.81) 1. Left leg weakness/pa in 2. L3-S1 spondylosis /radiculopa thy 10/10/2024 Pain in left leg (ICD-10 - M79.605) 1. Left leg weakness/pa in 2. L3-S1 spondylosis /radiculopa thy 10/10/2024 Other Plan established by Dr. Perry. Patient evaluated by myself and Dr. Perry today. I am going to order an MRI of the lumbar spine to evaluate for any neural compression given patient's bilateral lower extremity weakness, more so on the left with left-sided leg pain. We will see her back in the office after imaging is obtained to review and offer further recommendations. The patient is very much in agreement with the treatment and/or diagnostic plan set forth and all questions were answered to the patient's satisfaction. Thanks once again. If we can be of further service to your patients with disorders of the spine, cervical, thoracic, or lumbar, please do not hesitate to contact Dr. Perry. Best regards, 1. Left leg weakness/pa in 2. L3-S1 spondylosis /radiculopa thy Plan Of Treatment Treatment Notes Assessment Notes Other Plan established by Dr. Perry. Patient evaluated by myself and Dr. Perry today. I am going to order an MRI of the lumbar spine to evaluate for any neural compression given patient's bilateral lower extremity weakness, more so on the left with left-sided leg pain. We will see her back in the office after imaging is obtained to review and offer further recommendations. The patient is very much in agreement with the treatment and/or diagnostic plan set forth and all questions were answered to the patient's satisfaction. Thanks once again. If we can be of further service to your patients with disorders of the spine, cervical, thoracic, or lumbar, please do not hesitate to contact Dr. Perry. Best regards, Pending Test Test Name Order Date Lumbar spine, 4v flex ext - 52102 2024 MRI : Lumbosacral Spine W/O Contrast - 7 214710/10/2024 Referrals Referral Date Details 10/10/2024 10/10/2024, APPROVED ............................NOT SCHEDULED.................................[facility] MRI LUMBAR TO BE DONE AT [facility], [address] [place], [address], Next Appt Details Follow Up: AFTER IMAGING, Re ason: Progress Notes * OMEGATSANDRADOB:1955 (69 yo F)Acc No.[id number]:10/10/2024 Patient: SANDRA NATH Provider: GRADY Augirre :1955 A ge:69 Y S ex:Female Date:10/10/2024 Address:[address] [place], [place] [id number] Pcp:Erasto Henry Subjective: * Chief Complaints: * L ow Back Pain * HPI: G eneral Follow Up Information: Dictated by Renetta Abernathy PA-C Thank you for referring your patient to see Dr. Perry in surgical spine consultation at the [facility]. Patient is a 69-year-old female that presents to the office with complaints of 6 to 7 weeks of pain/numbness in the low back, left hip and thigh that radiates down to the foot. She denies any specific injury. Current VAS score of 6 out of 10. Percentagewise 50% of patient's pain is in her back and 50% is in her left leg. Aggravating factors of her pain are standing, walking, leaning and bending forward, lying on her back, stomach, and rising from sitting. Sitting and lying on her side help relieve her pain. She has been taking Lyrica and Percocet that have been somewhat helpful. She did present to the ER a few weeks ago where a disc bulge was found on a CT of her lumbar spine. She does report that she did have a T12 compression fracture last year. She used to get infusions for her osteoporosis but has not done any in the past few years. G eneral Info per Patient Report: Side affected is L eft. J oint or body part affected is?lower back, hip, leg. D ate of Injury: . W ork related: N o. M otor vehicle accident: N o. M VA N o. T hird democrat responsibility: N o. W hat activities make your symptoms worse? s tanding, Walking,leaning forward,bending forward,lying on back,lying on stomach,rising from sitting. * ROS: C onstitutional: Appetite Change Y es. D ifficulty Sleeping Y es.?Unexplained Weight Loss Y es. M arked Fatigue Y es. E ar/Nose/Throat: Difficulty Swallowing Y es. E yes: Glasses/ Contacts Y es. G astrointestinal: Frequent Constipation Y es. H eartburn/Acid Stomach?Yes. S kin: Frequent Itchiness Y es. M usculoskeletal: Joint pain Y es. B ack Pain Y es. N lisset Pain?Yes. M uscle Pain Y es. H ematologic: Bruising Y es. G enitourinary: Difficulty Starting to Urinate Y es. U rinate at Night More Than Once Y es. U nable to Completely Empty Bladder Y es. N eurological: Tremors Y es. H eadaches/Migraines Y es. P sychiatric: Anxiety Y es. D epression Y es. * Medical History: * Surgical History: C esarean x2 Abdominal ilateral lung * Family History: M other: , diagnosed with Lung disease, Heart trouble. F ather: , diagnosed with Heart trouble, Lung disease. 3 brother(s) , 1 sister(s) . 3 son(s) . . * Social History: S moking History S moking Status F ormer Smoker, W hen did you stop smoking? 0 03/06/2022, H ow long since you quit 1 - 5 years. C onsume alcohol: No . E xercise regularly: Yes D o you exercise? Y es Walking. W orking status W hat is your working status D isabled. M arital status M arital Status M arried. M aintain a job: No. * Medications: T akingibuprofen Tylenol Lyrica Percocet atorvastatin 40 mg tablet 1 tab(s) orally once a day Melatonin 5 mg capsule 1 cap(s) orally once a day (at bedtime) eszopiclone 3 mg tablet 1 tab(s) orally once a day (at bedtime) DULoxetine 30 mg delayed release capsule 3 cap(s) orally once a day aspirin 81 mg tablet 1 tab(s) orally once a day pregabalin 100 mg capsule 1 cap(s) orally 1-3 times a day Vitamin D3 Metoprolol Tartrate 25 mg tablet 0.5 tab(s) orally 2 times a day predniSONE 5 mg tablet 2 tab(s) orally once a day Medication List reviewed and reconciled with the patientTaking ibuprofen Taking Tylenol Taking Lyrica Taking Percocet Taking atorvastatin 40 mg tablet 1 tab(s) orally once a day Taking Melatonin 5 mg capsule 1 cap(s) orally once a day (at bedtime) Taking eszopiclone 3 mg tablet 1 tab(s) orally once a day (at bedtime) Taking DULoxetine 30 mg delayed release capsule 3 cap(s) orally once a day Taking aspirin 81 mg tablet 1 tab(s) orally once a day Taking pregabalin 100 mg capsule 1 cap(s) orally 1-3 times a day Taking Vitamin D3 Taking Metoprolol Tartrate 25 mg tablet 0.5 tab(s) orally 2 times a day Taking predniSONE 5 mg tablet 2 tab(s) orally once a day Medication List reviewed and reconciled with the patient * Allergies: a zithromycin: hives - Allergylatexzythromaxno[Allergies Verified] Objective: * Vitals: P ain Scale (NRS): 6, Ht: 5'4 , Wt: 132 lbs, BMI:22.66. * Examination: G eneral examination: O n examination, the patient is well-developed, well-nourished, well-groomed, alert and oriented x3, normal mood. Patient in a wheelchair, ambulation not observed. Patient ambulates at home with a rollator. Limited lumbar ROM. Midline tender over the lumbar spine and left paraspinal musculature. 2/5 strength to the left hip flexion/extension, right hip flexion 4/5, 2/5 left quad strength, 4/5 left hamstring strength, 4/5 left plantarflexion, otherwise 5/5 strength bilateral lower extremities. Sensory intact lower extremities. Positive SLR on the left, negative on the right. Negative clonus bilaterally. Absent left-sided patellar tendon and Achilles tendon reflexes, 1+ on the right lower extremity. X -ray Imaging Studies: 4 view x-rays of the lumbar spine were taken in office and reviewed and interpreted by myself as negative for apparent fracture, no spondylolisthesis. There is an osseous abnormality at the superior endplate of L4, likely related to Schmorl's node. Disc spaces are maintained. C T Imaging Studies: C T lumbar spine was reviewed by myself from the [facility] from 09/26/2024 Impression No acute fracture, no spondylolisthesis. Mild to moderate chronic compression fracture deformity affecting the upper portion of the T12 vertebral body. Prominent Schmorl's node formation noted along the superior endplate of L4. Small posterior lateral disc bulge components contribute to mild bilateral neuroforaminal stenosis in the mid and lower lumbar spine levels. Assessment: * Assessment: 1. O ther spondylosis with radiculopathy, lumbosacral region - M47.27 (Primary) ?2. M uscle weakness - M62.81 3 . P ain in left leg - M79.605 ? 1. Left leg weakness/pain 2. L3-S1 spondylosis/radiculopathy Plan: * Treatment: * Procedure Codes: * Follow Up: A [facility]TER IMAGING Forms: * Images: * Sign off status: Completed true * Provider: GRADY Aguirre Date: 0 10/10/2024 Generated for Jodyi matias/Juliocesar/Phoebeitting on: 0 12/10/2024 02:16 PM EDT History and Physical Notes * HPI (History of Present Illness) Category Sub-Category Detail Notes Category Not es General Follow Up Information Dictated by Renetta Abernathy PA-C Thank you for referring your patient to see Dr. Perry in surgical spine consultation at the [facility]. Patient is a 69-year-old female that presents to the office with complaints of 6 to 7 weeks of pain/numbness in the low back, left hip and thigh that radiates down to the foot. She denies any specific injury. Current VAS score of 6 out of 10. Percentagewise 50% of patient's pain is in her back and 50% is in her left leg. Aggravating factors of her pain are standing, walking, leaning and bending forward, lying on her back, stomach, and rising from sitting. Sitting and lying on her side help relieve her pain. She has been taking Lyrica and Percocet that have been somewhat helpful. She did present to the ER a few weeks ago where a disc bulge was found on a CT of her lumbar spine. She does report that she did have a T12 compression fracture last year. She used to get infusions for her osteoporosis but has not done any in the past few years. General Info per Patient Report Side affected is Left Joint or body part affected is lower abel k, hip, leg Work related: No Motor vehicle accident: No Date of Injury: 09/05/24 Third democrat responsibility: No What activities make your symptoms worse ? standing, Walking,leaning forward,bending forward,lying on back,lying on stomach,rising from sitting MVA No Examination Category Sub-Category Detail Notes Category Not es General examination On exami nation, the patient is well-developed, well-nourished, well-groomed, alert and oriented x3, normal mood. Patient in a wheelchair, ambulation not observed. Patient ambulates at home with a rollator. Limited lumbar ROM. Midline tender over the lumbar spine and left paraspinal musculature. 2/5 strength to the left hip flexion/extension, right hip flexion 4/5, 2/5 left quad strength, 4/5 left hamstring strength, 4/5 left plantarflexion, otherwise 5/5 strength bilateral lower extremities. Sensory intact lower extremities. Positive SLR on the left, negative on the right. Negative clonus bilaterally. Absent left-sided patellar tendon and Achilles tendon reflexes, 1+ on the right lower extremity. X-ray Imaging Studies 4 view x-rays of the lumbar spine were taken in office and reviewed and interpreted by myself as negative for apparent fracture, no spondylolisthesis. There is an osseous abnormality at the superior endplate of L4, likely related to Schmorl's node. Disc spaces are maintained. CT Imaging Studies CT lumbar spine was reviewed by myself from the [facility] from 09/26/2024 Impression No acute fracture, no spondylolisthesis. Mild to moderate chronic compression fracture deformity affecting the upper portion of the T12 vertebral body. Prominent Schmorl's node formation noted along the superior endplate of L4. Small posterior lateral disc bulge components contribute to mild bilateral neuroforaminal stenosis in the mid and lower lumbar spine levels. Consultation Request Notes Referral Date Referring Provider Referred Provider Not es 10/10/2024 Arielle Callahan , APPROVED... ....................... ..NOT SCHEDULED......................... ........[facility] MRI LUMBAR TO BE DONE AT [facility]
--- OUTSIDE RECORDS SUMMARY | 2024-10-20 11:33 | XMS_ITS ---
Author Organization [facility] Address [address] [place] [address] Care Team Providers Care High School Art Teacher Name Role Phone Erasto Henry Primary Care Provider Tristan Cobb Unavailable [phone] London, Arielle Unavailable [phone] REASON FOR VISIT REFILL Encounters Encounter Location Date Provider Diagnosis [facility] [address] [place] [address] 10/20/2024 Selvon London Plan Of Treatment No Information Progress Notes * SANDRA CANALESDOB:1955 (69 yo F)Acc No.[id number]:10/20/2024 Patient: SANDRA NATH :1955 A ge:69 Y S ex:Female Address:[address] [place] [id number] * true * Date: Generated for Morgan salcedo/Juliocesar/eTransmitting on: 0 12/10/2024 02:17 PM EDT
--- OUTSIDE RECORDS SUMMARY | 2024-10-31 07:50 | XMS_ITS ---
Author Organization [facility] Address [address] [place] [address] Care Team Providers Care Assistant District Attorney Name Role Phone Erasto Henry Primary Care Provider Tristan Cobb Unavailable [phone] Arielle Callahan Unavailable [phone] Allergies Allergen (clinical drug ingredient) Drug/Non Drug Allergy documented on EMR Reaction Allergy Type Onset Date Status Latex latex (uncoded) Unknown Allergy Acti ve azithromycin zythromax (uncoded) Unknown Allergy Active azithromycin azithromycin hives Drug Allergy A ctive Reason For Referral Reason [facility] Diagnosis 1 Compression fracture of T12 vertebra with routine healing, subsequent encounter (S22.080D) Referral Organization [facility] Referring Provider First Name Arielle Referring Provider Last Name [place] Referring Provider Speciality Orthopedic Surgery [facility] General Notes Danielle Trammell 2024 12:40:48 PM >, Danielle Trammell 11/04/2024 03:46:43 PM >FAXED Referral Priority Routine Reason REFERRAL TO RHEUMATO [facility] Diagnosis 1 Compression fracture of T12 vertebra with routine healing, subsequent encounter (S22.080D) Referral Organization [facility] Referring Provider First Name Seljanet Referring Provider Last Name London Referring Provider Speciality Orthopedic Surgery Referred Organization Rheumatology [facility] Referred Address [address] [place], [place],[address], General Notes Danielle Trammell 2024 12:42:25 PM >PATIENT ALREADY SEES RHEUMATOLOGY AND HAS APPOINTMENT IN DECEMBER Referral Priority Routine REASON FOR VISIT LUMBAR MRI REVIEW Medications Medication SIG (Take, Route, Frequency, Duration) Notes Start Date End Date Status Tylenol Active predniSONE 5 mg 2 tab(s) orally once a day Active Vitamin D3 Active ibuprofen Active Metoprolol Tartrate 25 mg 0.5 tab(s) ora lly 2 times a day Active DULoxetine 30 mg 3 cap(s) orally once a day Active aspirin 81 mg 1 tab(s) orally once a day Active pregabalin 100 mg 1 cap(s) orally 1-3 times a day Active Melatonin 5 mg 1 cap(s) orally once a day (at bedtime) Active eszopiclone 3 mg 1 tab(s) orally once a day (at bedtime) Active Lyrica Active Percocet Active atorvastatin 40 mg 1 tab(s) orally once a day Active Social History Tobacco Use: Social History Observation Description Date Details (start date - stop date) Former Smoker NA - 03/06/2022 Smoking History Question Answer Notes Smoking Status Former Smoker When did you stop smoking? 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 Neurological: Positive for pain and burning sensation in legs. Objective : Vital Signs Height 5'4 in 10/31/2024 Weight 132 lbs 10/31/2024 BMI 22.66 10/31/2024 Encounters Encounter Location Date Provider Diagnosis [place] [facility] [place] [address] 10/31/2024 Arielle Tello Clair Compression fracture of T12 vertebra with routine healing, subsequent encounter S22.080D and Compression fracture of L4 vertebra with routine healing, subsequent encounter S32.040D Assessments Encounter Date Diagnosis (ICD Code) Assessment Notes Treatment Notes Treatment Clinical Notes Section Notes 10/31/2024 Compression fracture of T12 vertebra with routine healing, subsequent encounter (ICD-10 - S22.080D) 10/31/2024 Compression fracture of L4 vertebra with routine healing, subsequent encounter (ICD-10 - S32.040D) 10/31/2024 Other Lise Covert, female patient with history of psoriatic arthritis and polymyalgia rheumatica, presenting with severe lower back pain radiating down the leg and significant lower extremity weakness for 3 months, now wheelchair-bound. Lower back pain with radiculopathy and lower extremity weakness Assessment: Patient presents with a 3-month history of progressive lower back pain radiating down the leg, accompanied by significant lower extremity weakness. MRI of the lumbar spine dated 10-27-24 shows old compression fractures at T12 and L4, but no significant nerve compression. The physical examination reveals gross muscle weakness in the lower extremities, particularly in the left leg, without hyperreflexia. The etiology of the weakness is unclear, given the lack of significant nerve compression on imaging. Differential diagnoses include metabolic causes, malnutrition, and possible exacerbation of underlying rheumatologic conditions (psoriatic arthritis, polymyalgia rheumatica). - Refer to Neurology for comprehensive evaluation of weakness and radiculopathy, - Follow up with Digital Account Manager Dr. Byrne for management of psoriatic arthritis and polymyalgia rheumatica, - No surgical intervention indicated at this time based on current MRI findings. Thanks once again. If we can be of further service to your patients with disorders of the spine, cervical, thoracic, or lumbar, please do not hesitate to contact me. Best regards, Plan Of Treatment Treatment Notes Assessment Notes Other Lise Covert, female patient with history of psoriatic arthritis and polymyalgia rheumatica, presenting with severe lower back pain radiating down the leg and significant lower extremity weakness for 3 months, now wheelchair-bound. Lower back pain with radiculopathy and lower extremity weakness Assessment: Patient presents with a 3-month history of progressive lower back pain radiating down the leg, accompanied by significant lower extremity weakness. MRI of the lumbar spine dated 10-27-24 shows old compression fractures at T12 and L4, but no significant nerve compression. The physical examination reveals gross muscle weakness in the lower extremities, particularly in the left leg, without hyperreflexia. The etiology of the weakness is unclear, given the lack of significant nerve compression on imaging. Differential diagnoses include metabolic causes, malnutrition, and possible exacerbation of underlying rheumatologic conditions (psoriatic arthritis, polymyalgia rheumatica). - Refer to Neurology for comprehensive evaluation of weakness and radiculopathy, - Follow up with Digital Account Manager Dr. Byrne for management of psoriatic arthritis and polymyalgia rheumatica, - No surgical intervention indicated at this time based on current MRI findings. Thanks once again. If we can be of further service to your patients with disorders of the spine, cervical, thoracic, or lumbar, please do not hesitate to contact me. Best regards, Referrals Referral Date Details 10/31/2024 10/31/2024, RE[facility]ERRRL [facility], 10/31/2024 10/31/2024, REFERRAL TO RHEUMATOLOGY, [address] [place], [address], Next Appt Details Follow Up: prn,, Reason: Progress Notes * LISE CANALESDOB:1955 (69 yo F)Acc No.[id number]:10/31/2024 Patient: LISE NATH Provider: Hannah Perry MD, PhD :1955 A ge:69 Y S ex:Female Date:10/31/2024 Address:[address] [place], [place] [id number] Pcp:Erasto Henry Subjective: * Chief Complaints: * L UMBAR MRI REVIEW * HPI: G eneral Info per Patient Report: Lise Canales presents with a 3-month history of progressive lower extremity weakness and pain, now requiring wheelchair use. She has a history of psoriatic arthritis and polymyalgia rheumatica. The patient reports that her symptoms began in July, initially affecting only her heels, then gradually progressing to involve both legs. She now experiences pain and burning sensations throughout her legs, with the pain radiating all the way down. The left leg is particularly affected, with the patient stating it gives out on her. 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 The weakness has significantly impacted her daily functioning, necessitating assistance from her sister for activities such as using the bathroom and preparing meals. The patient's sister visits daily around 10 AM to provide care and support. Lise reports discontinuing her infusion treatment for psoriatic arthritis (polyoesophorosis). She is currently under the care of a port surveyor, Dr. Byrne, for her psoriatic arthritis and polymyalgia rheumatica. Despite these ongoing health issues, the patient maintains a positive outlook, expressing gratitude for her sister's support and stating, We take care of each other. . * Medical History: * Surgical History: * Family History: M other: , diagnosed with Lung disease, Heart trouble. S iblings: alive. F ather: , diagnosed with Heart trouble, Lung disease. - Sister: Helps patient daily with activities of daily living. * Social History: S moking History S [...] M arried. M aintain a job: No. 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 Neurological: Positive for pain and burning sensation in legs. Objective :. * Medications: T akingibuprofen Tylenol Lyrica Percocet [...] patient * Allergies: a zithromycin: hives - Allergylatexzythromax Objective: * Vitals: H t: 5'4 , Wt: 132 lbs, BMI:22.66. * Examination: G eneral examination: Musculoskeletal S ubjective w eakness i n t he?lower e xtremities. R ight l eg m oving s pontaneously. L eft l eg?figured a yolanda bartholomew. G ofe m uscle w eakness n oted.. G eneral?Patient i s i n a w heelchair.. N eurological:Sensation intact throughout. No hyperreflexes observed. MRI studies: - MRI Lumbar Spine (10/27/2024): - Old compression fracture at T12 MRI studies: - MRI Lumbar Spine (10/27/2024): - Old compression fracture at L4 endplate MRI studies: - MRI Lumbar Spine (10/27/2024): - No significant nerve compression noted MRI studies: - MRI Lumbar Spine (10/27/2024): Treatment Notes::. Assessment: * Assessment: 1. C ompression fracture of T12 vertebra with routine healing, subsequent encounter - S22.080D (Primary) 2 . C ompression fracture of L4 vertebra with routine healing, subsequent encounter - S32.040D Plan: * Treatment: 2. O thers Notes: Lise Zamudiot, female patient with history of psoriatic arthritis and polymyalgia rheumatica, presenting with severe lower back pain radiating down the leg and significant lower extremity weakness for 3 months, now wheelchair-bound. Lower back pain with radiculopathy and lower extremity weakness Assessment: Patient presents with a 3-month history of progressive lower back pain radiating down the leg, accompanied by significant lower extremity weakness. MRI of the lumbar spine dated 10-27-24 shows old compression fractures at T12 and L4, but no significant nerve compression. The physical examination reveals gross muscle weakness in the lower extremities, particularly in the left leg, without hyperreflexia. The etiology of the weakness is unclear, given the lack of significant nerve compression on imaging. Differential diagnoses include metabolic causes, malnutrition, and possible exacerbation of underlying rheumatologic conditions (psoriatic arthritis, polymyalgia rheumatica). - Refer to Neurology for comprehensive evaluation of weakness and radiculopathy, - Follow up with Digital Account Manager Dr. Byrne for management of psoriatic arthritis and polymyalgia rheumatica, - No surgical intervention indicated at this time based on current MRI findings. Thanks once again. If we can be of further service to your patients with disorders of the spine, cervical, thoracic, or lumbar, please do not hesitate to contact me. Best regards, * Procedure Codes: * Follow Up: p rn, Forms: * Images: * Sign off status: Completed true * Provider: Hannah Perry MD, PhD Date: 10/31/2024 Generated for Morgan salcedo/Juliocesar/Teresa on: 12/10/2024 02:16 PM EDT History and Physical Notes * HPI (History of Present Illness) Category Sub-Category Detail Notes Category Not es General Info per Patient Report Lise Canales presents with a 3-month history of progressive lower extremity weakness and pain, now requiring wheelchair use. She has a history of psoriatic arthritis and polymyalgia rheumatica. The patient reports that her symptoms began in July, initially affecting only her heels, then gradually progressing to involve both legs. She now experiences pain and burning sensations throughout her legs, with the pain radiating all the way down. The left leg is particularly affected, with the patient stating it gives out on her. 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 The weakness has significantly impacted her daily functioning, necessitating assistance from her sister for activities such as using the bathroom and preparing meals. The patient's sister visits daily around 10 AM to provide care and support. Lise reports discontinuing her infusion treatment for psoriatic arthritis (polyoesophorosis). She is currently under the care of a port surveyor, Dr. Byrne, for her psoriatic arthritis and polymyalgia rheumatica. Despite these ongoing health issues, the patient maintains a positive outlook, expressing gratitude for her sister's support and stating, We take care of each other. Examination Category Sub-Category Detail Notes Category Not es General examination Musculoskeletal Subjective weakness in the l ower extremities. Right leg moving spontaneously. Left leg figured a breeze. Gross muscle weakness noted. Neurological:Sensati on intact throughout. No hyperreflexes observed. MRI studies: - MRI Lumbar Spine (10/27/2024): - Old compression fracture at T12 MRI studies: - MRI Lumbar Spine (10/27/2024): - Old compression fracture at L4 endplate MRI studies: - MRI Lumbar Spine (10/27/2024): - No significant nerve compression noted MRI studies: - MRI Lumbar Spine (10/27/2024): Treatment Notes:: General Patient is in a whee lchair. Consultation Request Notes Referral Date Referring Provider Referred Provider Not es 10/31/2024 Arielle Callahan REF[facility]RL [facility] 10/31/2024 Arielle Callahan , REFERRAL TO RHEUMATOLOGY
--- OUTSIDE RECORDS SUMMARY | 2024-11-04 09:30 | XMS_ITS ---
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 Name Role Phone Erasto Henry MD Primary Care Provider Jasper mariscal AbbyFish Unavailable [phone] Allergies Allergen (clinical drug ingredient) Drug/Non Drug Allergy documented on EMR Reaction Allergy Type Onset Date Status azithromycin Azithromycin Hives Drug Allergy A ctive Latex Latex Hives Allergy Active REASON FOR VISIT 3m F/U - COPD Medications Medication SIG (Take, Route, Frequency, Duration) Notes Start Date End Date Status Stiolto Respimat 2.5-2.5 MCG/ACT 2 puffs Inhalation QD for 30 days Please instruct patient on appropriate use of Stiolto Respimat 08/06/2024 Active Albuterol Sulfate HFA 108 (90 Base) MCG/ACT 2 puffs as needed for SOB Inhalation every 4 hrs for 30 days Active oxyCODONE-Acetamino phen 5-325 MG Oral for 7 Days Active Acetaminophen-Codei ne 300-30 MG Oral for 5 Days Active Pregabalin 100 MG 1 capsule Orally Once a day Active Social History Tobacco Use: Social History Observation Description Date Details (start date - stop date) Former Smoker NA - NA Tobacco Control (Standard) Question Answer Notes Tobacco use: Former smoker Additional Findings: Tobacco non-user Ex-very he gibran cigarette smoker (40+/day) Vital Signs Weight 98.0 lbs 11/04/2024 Height 65 in 11/04/2024 Blood pressure systolic 164 mm Hg 11/05/19 25 Blood pressure diastolic 92 mm Hg 025 Temperature 97.1 degrees Fahrenheit 11/05/19 25 Heart Rate 77 /min 11/04/2024 Respiratory Rate 18 /min 11/04/2024 BMI 16.31 kg/m2 11/04/2024 Oximetry 91 % 11/04/2024 Encounters Encounter Location Date Provider Diagnosis Pulmonary Medicine [place] [address] [place] [address] 11/04/2024 Fish Mora Chronic respiratory failure with hypoxia J96.11 ; 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 ; History of tobacco abuse Z87.891 ; Underweight R63.6 and roasterman (current) use of systemic steroids Z79.52 Assessments Encounter Date Diagnosis (ICD Code) Assessment Notes Treatment Notes Treatment Clinical Notes Section Notes 11/04/2024 Chronic respiratory failure with hypoxia (ICD-10 - J96.11) Has Inogen. She did not bring it in with her today. States SpO2 has been in the 90's at home recently. 11/04/2024 Bullous emphysema (ICD-10 - J43.9) Bevespi was not covered, but Stiolto was. She is using it with some mild benefit. Still symptomatic with chest congestion and difficulty coughing. Reviewed past labs - no historic elevation of eosinophils @ 300 or higher, so she is not a Dupixent candidate. Discussed options to promote a good pulmonary toilet - encouraged patient to drink plenty of water. Restart Mucinex @ 1200mg BID. Discussed saline nebs, but patient refused it at this time. She has a nebulizer but is not using ipratropium at this current time. 11/04/2024 History of tobacco abuse (ICD-10 - Z87.891) 80 pack-year history 2ppd x 40 years, quit 02/2022. LDCT due 02/2025. 11/04/2024 Underweight (ICD-10 - R63.6) Remains underweight. Continue healthy caloric intake. 11/04/2024 half-way (current) use of systemic steroids (ICD-10 - Z79.52) She is on chronic prednisone for temporal arteritis. Plan Of Treatment Medication Medication Name Sig Start Date Stop Date Notes Stiolto Respimat 2.5-2.5 MCG/ACT 2 puffs Inhalation QD for 30 days 08/06/2024 Please instruct patient on appropriate use of Stiolto Respimat Albuterol Sulfate HFA 108 (90 Base) MCG/ACT 2 puffs as needed for SOB Inhalation every 4 hrs for 30 days Treatment Notes Assessment Notes Chronic respiratory failure with hypoxia Has Inogen. She did not bring it in with her today. States SpO2 has been in the 90's at home recently. Bullous emphysema Bevespi was not covered, but Stiolto was. She is using it with some mild benefit. Still symptomatic with chest congestion and difficulty coughing. Reviewed past labs - no historic elevation of eosinophils @ 300 or higher, so she is not a Dupixent candidate. Discussed options to promote a good pulmonary toilet - encouraged patient to drink plenty of water. Restart Mucinex @ 1200mg BID. Discussed saline nebs, but patient refused it at this time. She has a nebulizer but is not using ipratropium at this current time. History of tobacco abuse 2ppd x 40 years, quit 02/2022. LDCT due 02/2025. Underweight Remains underweight. Continue healthy caloric intake. roasterman (current) use of s ystemic steroids She is on chronic prednisone for temporal arteritis. Next Appt Details Follow Up: 6 Months, Reason: COPD Provider Name:Fish Mora, 05/06/2025 02:00:00 PM, [address] [place], [address], Procedure Notes * Category Sub-Category Detail Notes PFT Data: 10/31/2022-FEV1/F VC: 30%-FEV1: 31% (0.72L)-FVC: 79%-YLS72-88%: 10%-Bronchodilator response: Positive-RV: 141%-T%-DLCO: 38%-Flow-volume loop: Very severe obstruction11/29/2010-FEV1/FVC: 49%-FEV1: 52% (1.49L)-FVC: 84%-ERP63-50%: 19%-Bronchodilator response: None-RV: 156%-T%-DLCO: 46%-Flow-volume loop: Moderately-severe obstruction Alpha-1 Antitrypsin Screening Date: 05/16/2022 Genotype: MM Progress Notes * COVERT, Lise SALDIVAROB:[birth year] (69 yo F)Acc No.[id number]:11/04/2024 Follow Up Patient: Lise NATH Provider: Dior Mora DO :1955 A ge:69 Y S ex:Female Date:11/04/2024 Address:[address] [place], [place] [id number] Pcp:Erasto Henry MD Check In:01:22 PM ESTCheck O ut:01:46 PM EST Subjective: * Chief Complaints: * 3 m F/U - COPD * HPI: G eneral: Patient states her breathing is doing okay. Stiolto was approved and patient is taking it as directed at 2 puffs QD. She is not using albuterol. Had a pneumonia in August? - this is the first I am aware of it. Main complaint is chest congestion. She stopped Mucinex a while ago because she didn't feel it helped. She does not remember what dose she took. She is not drinking an adequate amount of water a day. S ister talks over patient often, which makes it sometimes difficult to get information. MA Intake Comments:. Patient presents for COPD. Patient complains of Cough, Wheezing & SOB. Patient reports having supplemental O2 at home but is not using it at this time.DME:[facility]. Patient states she is using Stiolto daily. Patient reports not having to use her rescue inhaler. Patient denies tobacco use today. Patient is under the care of [facility] Cardiology & . * ROS: G [...] enies. D yspnea a dmits. C ough c hest congestion. H emoptysis d enies. W heezing d enies. G astrointestinal: Acid Reflux/GERD/Heartburn d enies. D ysphagia d enies. M usculoskeletal: Arthralgias/joint pain l eft hip/leg pain. S kin: Easy bruising d enies. R [...] COPD (chronic obstru ctive pulmonary disease) Modified On:04/03/2023U Status:confirmed F32.9 Depression Modified On:04/03/2023U Status:confirmed K21.9 Acid reflux Modified On:04/03/2023U Status:confirmed G72.81 Critical illness peg gentry Modified On:05/10/2023U Status:confirmed J44.1 Chronic obstructive pulmonary disease with (acute) exacerbation Modified On:12/25/2023U Status:confirmed J44.9 Advanced COPD Modified On:03/19/2024U Status:confirmed I25.10 CAD (coronary artery disease) Modified On:03/19/2024U Status:confirmed I10 BP (high blood press ure) Modified On:03/19/2024U Status:confirmed N18.31 Stage 3a chronic kid kamila disease (CKD) Modified On:03/19/2024U Status:confirmed E78.5 Hyperlipemia Modified On:03/19/2024 Status:confirmed J44.1 COPD exacerbation Modified On:07/10/2024 Status:confirmed N18.32 Chronic kidney disea se, stage 3b Modified On:07/10/2024U Status:confirmed E11.65 Type 2 diabetes vickey itus with hyperglycemia Modified On:07/10/2024 Status:confirmed I10 Benign essential HTN Modified On:07/25/2024U Status:confirmed Z79.52 roasterman (current) use of systemic steroids Modified On:08/05/2024 Status:confirmed * Medical History: * Surgical History: R UL wedge resection 2Right thoracostomy tube insertion 2Coronary stent x1 03/08/2020Exploratory laparotomy 2019Colonoscopy 2018Left lung surgery 2016Cesarean * Hospitalization/Major Diagno stic Procedure: R ight spontaneous pneumothorax 02/2022Unstable angina 02/2020Colovesical fistula 04/2019COPD exacerbation 07/2018Acute Respiratory Failure-[facility] 01/29/2023SOB-[facility] 4COPD Exacerbation-[facility] 4Pneumonia-[facility] 07/07/2024 * Family History: F ather: Ulcerative [...] iscellaneous: Deandre gaffneyulatory Assistance E quipment: W alker, Wheelchair 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 Pets: dog. D rugs/Alcohol: D rugs H [...] Medications: T akingAcetaminophen-Codeine 300-30 MG Tablet Oral oxyCODONE-Acetaminophen 5-325 MG Tablet Oral Pregabalin 100 MG Capsule 1 capsule Orally Once a day Stiolto Respimat(Tiotropium [place]-Olodaterol) 2.5-2.5 MCG/ACT Aerosol Solution 2 puffs Inhalation QD , Notes to Pharmacist: Please instruct patient on appropriate use of Stiolto RespimatTaking Acetaminophen-Codeine 300-30 MG Tablet Oral Taking oxyCODONE-Acetaminophen 5-325 MG Tablet Oral Taking Pregabalin 100 MG Capsule 1 capsule Orally Once a day Taking Stiolto Respimat(Tiotropium [place]-Olodaterol) 2.5-2.5 MCG/ACT Aerosol Solution 2 puffs Inhalation QD , Notes to Pharmacist: Please instruct patient on appropriate use of Stiolto RespimatNot-Taking/PRNAlbuterol Sulfate HFA 108 (90 Base) MCG/ACT Aerosol Solution 2 puffs as needed for SOB Inhalation every 4 hrs Not-Taking/PRN Albuterol Sulfate HFA 108 (90 Base) MCG/ACT Aerosol Solution 2 puffs as needed for SOB Inhalation every 4 hrs DiscontinuedamLODIPine Besylate 5 MG Tablet Oral Aspirin 81(Aspirin) [...] 12 Hour 2 tablet Orally BID Ipratropium [place] 0.02 % Solution 2.5 mL Inhalation every [...] Tablet 1 tablet Orally Once a day Vitamin D3 50 MCG (2000 UT) Tablet Chewable 1 tablet Orally Once a day Medication List reviewed and reconciled with the patientDiscontinued amLODIPine Besylate 5 MG Tablet Oral Discontinued Aspirin 81(Aspirin) 81 MG Tablet Delayed Release 1 tablet Orally Once a day Discontinued Atorvastatin Calcium 40 MG Tablet 1 tablet Orally Once a day Discontinued Cranberry 500 MG Capsule as directed Orally Discontinued DULoxetine HCl 30 MG Capsule Delayed Release Particles 1 capsule Orally Once a day Discontinued Eszopiclone 3 MG Tablet 1 tablet immediately before bedtime Orally Once a day Discontinued guaiFENesin ER 600 MG Tablet Extended Release 12 Hour 2 tablet Orally BID Discontinued Ipratropium [place] 0.02 % Solution 2.5 mL Inhalation every 8 hrs Discontinued Iron 325 (65 Fe) MG Tablet 1 tablet Orally Three times a Week Discontinued Melatonin 5 MG Tablet 1 tablet at bedtime as needed Orally Once a day Discontinued Metoprolol Tartrate 25 MG Tablet 1 tablet with food Orally Twice a day Discontinued Pantoprazole Sodium 40 MG Tablet Delayed Release 1 tablet Orally Once a day Discontinued predniSONE 10 MG Tablet 1 tablet Orally Once a day Discontinued Vitamin D3 50 MCG (1999 UT) Tablet Chewable 1 tablet Orally Once a day Medication List reviewed and reconciled with the patient * Allergies: L atex: Hives - AllergyAzithromycin: Hives - Allergyno[Allergies Verified] Objective: * Vitals: W t:98.0lbs, Ht: 65 in, BP:sittin/92mm Hg, Temp:Forehead:97.1F, HR:77/min, RR:18/min, BMI:16.31Index, Oxygen sat %:Room Air:91%, Ht-cm: 165.1 cm, Wt-k.45 kg. * Examination: E xam: GENERAL APPEARANCE: T hin. Skin N ormal. Mouth P ink and moist. No cyanosis. Oropharynx/Tongue M allampati Class II. Trachea M idline. Chest N ormal. Respiratory Normal M ovements, E ffort N ormal. Auscultation D iminished breath sounds with faint expiratory wheezes. Percussion H yperresonance. Cardiac R egular rate & rhythm. Gastrointestinal N ormal. Vascular N o edema. Musculoskeletal U sing a wheelchair now. Neurological F ocal, intact. Psychiatric A lert and oriented x3. Mentation/Cognition N ormal. Assessment: * Assessment: 1. B ullous emphysema - J43.9 (Primary) 2 . C hronic respiratory failure with hypoxia - J96.11 3 . H istory of tobacco abuse - Z87.891 N otes :80 pack-year history 4 . U nderweight - R63.6 5 . L kartik term (current) use of systemic steroids - Z79.52 Plan: * Treatment: 2. C hronic respiratory failure with hypoxia Notes: Has Inogen. She did not bring it in with her today. States SpO2 has been in the 90's at home recently. 3. H istory of tobacco abuse Notes: 2ppd x 40 years, quit 02/2022. LDCT due 02/2025. 4. U nderweight Notes: Remains underweight. Continue healthy caloric intake. 5. L kartik term (current) use of systemic steroids Notes: She is on chronic prednisone for temporal arteritis. * Procedures: A lpha-1 Antitrypsin: Screening Date: 07/16/2021. Genotype: M M. P FT: Data: 10/31/2022 -FEV1/FVC: 30% -FEV1: 31% (0.72L) -FVC: 79% -WEY72-20%: 10% -Bronchodilator response: Positive -RV: 141% -T% -DLCO: 38% -Flow-volume loop: Very severe obstruction 11/29/2010 -FEV1/FVC: 49% -FEV1: 52% (1.49L) -FVC: 84% -NUC64-58%: 19% -Bronchodilator response: None -RV: 156% -T% -DLCO: 46% -Flow-volume loop: Moderately-severe obstruction . * Procedure Codes: * Preventive Medicine: COVID Vaccination: H as patient had COVID Vaccination? COVID Vaccination Y es 05/05/2022 Immunization Status: P neumovacc P njkbil66-50/28/2022. I nfluenza 0 03/27/2022. Screenings/Counseling: F ALL RISK SCREENING Fall Risk Assessment: T wo or more falls with injury in the past year Collapsed Lung, Fractured Vertebrae Are you afraid of falling? N o T OBACCO ACTION PLAN Patient counselled on the dangers of tobacco use and urged to quit. 0 11/04/2024 Former Education on smoking effects provided?11/04/2024 Former B FL ACTION PLAN Below Normal BMI Follow-up D ietary education for weight gain * Follow Up: 6 Months (Reason: COPD) * * Sign off status: Completed Visit Status: C HK (Check Out) true * Provider: Dior Mora DO Date: 0 11/04/2024 Generated for Morgan salcedo/Juliocesar/Teresa on: 0 12/10/2024 02:17 PM EDT History and Physical Notes * HPI (History of Present Illness) Category Sub-Category Detail Notes Category Not es General Patient present s for COPD. Patient complains of Cough, Wheezing & SOB. Patient reports having supplemental O2 at home but is not using it at this time.DME:[facility]. Patient states she is using Stiolto daily. Patient reports not having to use her rescue inhaler. Patient denies tobacco use today. Patient is under the care of [facility] Cardiology & . Examination Category Sub-Category Detail Notes Category Not es Exam GENERAL APPEARANCE: Thin Skin Normal Mouth [place] and moist. No c yanosis Trachea Midline Chest Normal Ribs Sternum Scar Supraclavicular (Virchow) node Respiratory Normal Movements, Ef fort Normal Auscultation Diminished breath so unds with faint expiratory wheezes Percussion Hyperresonance Egophony Bronchophony Fremitus Whispered pectoriloquy Cardiac Regular rate & rhyth m Gastrointestinal Normal Vascular No edema Musculoskeletal Using a wheelchair n ow Neurological Focal, intact Psychiatric Alert and oriented x 3 Mentation/Cognition Normal Oropharynx/Tongue Mallampati Class II
[2024-12-10] VITALS (27 sets, daily range): BP systolic 116–190; BP diastolic 54–98; PULSE 79–121; TEMP 36.9–39; O2SAT 87–97; BMI 15.4; BMI 15.9
--- OUTSIDE RECORDS SUMMARY | 2024-12-10 14:16 | XMS_ITS | Referral Summary ---
Author Organization [facility] Address [address] [place] [address] Care Team Providers Care Fern Gatherer Name Role Phone Erasto Henry MD Primary Care Provider [phone] Christoph Mobley MD Unavailable [phone] Encounters Date Type Department Care Team Description 10/05/2024 Refill [facility] Heart at [address] [address] Fletcher Neff MD Coronary artery disease involving [place] coronary artery of [place] heart without angina pectoris from Last 3 Months Allergies Active Allergy Reactions Criticality Noted Date Comments Azithromycin Hives Medium 03/05/2019 Latex Other 04/24/2007 Medications Medication Sig Dispensed Refills Start Date End Date Status aspirin 81 mg EC tablet in the morning. Active DULoxetine (Cymbalta) [address] capsule Take 90 mg by mouth in the morning. 04/17/2007 Active eszopiclone (Lunesta) 3 mg tablet Take 3 mg by mouth if needed. 04/17/2007 Active melatonin 5 mg tablet Take 5 mg by mouth at bedtime. Active predniSONE (Deltasone) 10 mg tablet Take 10 mg by mouth in the morning. 05/14/2015 Active pregabalin (Lyrica) 100 mg capsule 100 mg in the morning and at bedtime. 04/04/2019 Active fluticasone furoate-vilanteroL (Breo Ellipta) 200-25 mcg/dose inhalerIndications: Panlobular emphysema (CMS/HCC) Inhale 1 puff in the morning. 60 each 1 03/27/2022 Active Additional Information Patient not taking.Reported on 06/27/2023 cholecalciferol (Vitamin D-3) 50 MCG (2000 UT) tablet Take 50 mcg by mouth in the morning. Active glipiZIDE (Glucotrol) 5 mg tablet Take 5 mg by mouth 1 (one) time each day. Active omeprazole (PriLOSEC) [address] capsule Take 40 mg by mouth before breakfast. Do not crush or chew. Active HYDROcodone-acetami nophen ([place]) 5-325 mg tablet Take 1 tablet by mouth every 8 (eight) hours if needed. 05/14/2023 Active potassium chloride CR (K-Tab) 20 mEq ER tablet Take 20 mEq by mouth once daily as directed. 05/30/2023 Active ferrous sulfate 325 (65 Fe) MG tablet Take 65 mg by mouth with breakfast. Active metoprolol tartrate (Lopressor) 25 mg tabletIndications:C oronary artery disease involving [place] coronary artery of [place] heart without angina pectoris,Benign essential hypertension Take 0.5 tablets (12.5 mg) by mouth in the morning and at bedtime. 90 tablet 3 01/07/2024 01/06/2025 Active atorvastatin (Lipitor) 40 mg tabletIndications:C oronary artery disease involving [place] coronary artery of [place] heart without angina pectoris TAKE 1 TABLET(40 MG) BY MOUTH AT BEDTIME 90 tablet 3 10/06/2024 Active Active Problems Problem Noted Date Diagnosed Date Bilateral leg edema 08/27/2023 Bullous emphysema 08/27/2023 Chronic depressive disorder 08/27/2023 Collagenous colitis 08/27/2023 Coronary artery disease, occlusive 08/27/2023 Dysuria 08/27/2023 Paresthesia 08/27/2023 Thoracic outlet syndrome 08/27/2023 Vitamin D deficiency 08/27/2023 Age-related osteoporosis wit h current pathological fracture, vertebra(e), initial encounter for fracture 06/27/2023 06/27/2023 Critical illness myopathy 06/27/20232022 DDD (degenerative disc disease), thoracic 202206/27/2023 Lumbar pain 06/27/2023 06/27/2023 Hospital discharge follow-up 06/14/2023 Overview (06/27/2023): Last Assessment & Plan: Recent hospital admission for UTI. Discharged on Cefdinir. Doing well. Denies urinary complaints. Hyponatremia 06/14/2023 06/27/2023 Overview (06/27/2023): Last Assessment & Plan: Noted on labs drawn upon discharge. Sodium 130. Recheck. Community acquired pneumonia of right lower lobe of lung 06/07/2023 Acute on chronic respiratory failure with hypoxi a 04/01/2022 Anemia, unspecified 04/01/2022 Other pneumothorax 03/30/2022 Overview (03/30/2022): Right, recurrent Recurrent spontaneous pneumothorax 03/30/2022 Giant cell arteritis with polymyalgia rheumatica 10/11/2021 Pneumothorax on left 08/02/2016 Coronary atherosclerosis 06/15/2014 Dyslipidemia 06/15/2014 Status post percutaneous transluminal coronary a ngioplasty 06/15/2014 Angina pectoris 05/04/2014 Electrocardiogram abnormal 05/04/2014 Abdominal pain 04/24/2014 Altered mental status 04/24/2014 Benign essential hypertension 04/24/2014 Congestive heart failure 04/24/2014 Dyspnea 04/24/2014 Gastroesophageal reflux disease 04/24/2014 History of psychiatric disorder 04/24/2014 Hyperlipidemia 04/24/2014 Headache 04/24/2014 Raynaud's disease 04/24/2014 Type 2 diabetes mellitus without complication 06/27/2023 Overview (06/27/2023): Removal Reason: Patient reports this was noted to be 2/2 to steroid use and has improved with reduction in steroid dose. Other and unspecified noninf ectious gastroenteritis and colitis(558.9) 05/15/2007 Candidiasis of mouth 04/17/2007 COPD (chronic obstructive pulmonary disease) 04/2007 Diarrhea 04/17/2007 Loss of weight 04/17/2007 Other psoriasis 04/17/2007 Psoriatic arthropathy 04/17/2007 Resolved Problems Problem Noted Date Diagnosed Date Resolved Date NSTEMI (non-ST elevated myoc ardial infarction) 06/05/2023 06/07/2023 Immunizations Name Administration Dates Next Due Unspecified Sars-Cov-2 Vaccination 06/17/2021,,09/23/2020 Social History Tobacco Use Types Packs/Day Years Used Date Smoking Tobacco: Former Cigarettes Q uit: 03/06/2022 Smokeless Tobacco: Never Tobacco Cessation:Counseling Given: Not Answered Alcohol Use Standard Drinks/Week Comments Not Currently 0 (1 standard drink = 0.6 oz pur e alcohol) Humiliation, Afraid, Rape, and Kick questionnair e Answer Date Recorded Within the last year, have y ou been afraid of your partner or ex-partner? No 06/04/2023 Emotionally Abused Not on file 06/04/2023 Physically Abused Not on file 06/04/2023 Sexually Abused Not on file 06/04/2023 Overall Financial Resource Strain (CARDIA) Answe r Date Recorded How hard is it for you to pa y for the very basics like food, housing, medical care, and heating? Not hard at all 06/04/2023 UT Safety & Environment Answer Date Rec orded Within the last year, have y ou been afraid of your partner or ex-partner? No 06/04/2023 Emotionally Abused Not on file 06/04/2023 Physically Abused Not on file 06/04/2023 Sexually Abused Not on file 06/04/2023 In the past year have you be en physically or sexually abused? 06/04/2023 Transportation Answer Date Recorded In the past 12 months, has l ack of transportation kept you from medical appointments or from getting medications? No 06/04/2023 Lack of Transportation (Non-Medical) Not on file 06/04/2023 Housing Stability Vital Sign Answer Too e Recorded Unable to Pay for Housing in the Last Year Not o n file 06/04/2023 Number of Places Lived in the Last Year Not on f ile 06/04/2023 In the last 12 months, was t here a time when you did not have a steady place to sleep or slept in a fdc (including now)? No 06/04/2023 Hunger Vital Sign Answer Date Recorded Within the past 12 months, y ou worried that your food would run out before you got the money to buy more. Never true 06/04/20 23 Ran Out of Food in the Last Year Not on file 06/04/2023 Sex and Gender Information Value Date Recorded Sex Assigned at Not on file Gender Identity Not on file Sexual Orientation Not on file Last Filed Vital Signs Vital Sign Reading Time Taken Comments Blood Pressure 102/58 01/07/2024 11:13 AM EDT Pulse 72 01/07/2024 11:13 AM EDT Temperature 36.8 C (98.2 F) 06/06/2023 1:45 PM EST Respiratory Rate 13 06/06/2023 1:45 PM EST Oxygen Saturation 94% 01/07/2024 11:13 AM EDT Inhaled Oxygen Concentration - - Weight 49.4 kg (109 lb) 01/07/2024 11:06 AM EDT Height 162.6 cm (5' 4 ) 01/07/2024 11:06 AM EDT Body Mass Index 18.71 01/07/2024 11:06 AM EDT Plan of Treatment Upcoming Encounters Date Type Department Care Team (Late st Contact Info) Description 01/26/2025 2:15 PM EDT Office Visit [facility] [address] [place] [address] Fletcher Neff MD [address] [facility] [place] [address] Procedures Procedure Name Priority Date/Time Associated Diagnosis Comments HEMOGLOBIN A1C Routine 06/05/2023 3:02 AM EST from Last 3 Months or Most Recently Relevant to Health Maintenance Results * (ABNORMAL) Hemoglobin A1c (06/05/2023 3:02 AM EST) Hemoglobin A1C 7.2(H) 4.0 - 6.0 % 06/05/2023 9:10 AM EST [facility] ([facility]) Estimated Average Glucose 160 mg/dL 06/05/2023 9:10 AM EST [facility] ([facility]) Blood Venous blood specimen / Unknown Arterial Line / Unknown 06/05/2023 3:02 AM EST 06/05/2023 3:10 AM EST Maria Victoria Finley MD LAB BLOOD ORDERABLES [facility] ([place]) [address] [place], [place] [id number] from Last 3 Months or Most Recently Relevant to Health Maintenance Advance Directives * Full Code (Latest Code Status on File) Date Activated Date Inactivated Comments 06/05/2023 1:19 AM 06/06/2023 4:37 PM * DNR CC-A Date Activated Date Inactivated Comments 04/08/2022 8:55 PM 04/11/2022 8:11 PM Question Answer Comments Select If Any Apply: No Intubation * Full Code Date Activated Date Inactivated Comments 04/03/2022 5:42 PM 04/08/2022 8:55 PM * DNR CC-A Date Activated Date Inactivated Comments 03/30/2022 5:24 PM 04/03/2022 5:42 PM Question Answer Comments Select If Any Apply: No Intubation Care Teams Fern Gatherer Relationship Specialty Start Date End Date Erasto Henry MD [address] [place] [address] PCP - General 03/08/22 Christoph Mobley MD [address] [place] [phone] Hematology and Oncology 04/03/22 Fish Mora [address] [place] [address] Tissue Technician 04/26/22
--- OUTSIDE RECORDS SUMMARY | 2024-12-10 14:16 | XMS_ITS | Patient Health Record ---
Author Organization [facility] Address [address] [place] [address] Care Team Providers Care Health Care Legal Assistant Name Role Phone Erasto Henry Primary Care Provider Tristan Cobb Unavailable [phone] Arielle Callahan Unavailable [phone] Renetta Abernathy Unavailable [phone] Allergies Allergen (clinical drug ingredient) Drug/Non Drug Allergy documented on EMR Reaction Allergy Type Onset Date Status Latex latex (uncoded) Unknown Allergy Acti ve azithromycin zythromax (uncoded) Unknown Allergy Active azithromycin azithromycin hives Drug Allergy A ctive Reason For Referral Reason APPROVED............ ................NOT SCHEDULED.................................[facility] MRI LUMBAR TO BE DONE AT [facility] Diagnosis 1 Left leg weakness (R 29.898) Referral Organization [facility] Referring Provider First Name Enedinajanet Referring Provider Last Name St Byrne Referring Provider Speciality Orthopedic Surgery Referred Organization [facility] Referred Address [address] [place], [place],[address], Procedure 1 MRI Lumbar Spine w/o Dye (00811) General Notes Danielle Trammell 2024 11:57:22 AM >, Maria Isabel Harmon 10/10/2024 12:00:53 PM > WAITING ON TODAY'S OFFICE NOTE, Danielle Trammell 10/15/2024 10:15:05 AM >NOTE COMPLETE, Romero Harmona 10/16/2024 07:41:33 AM > AUTHORIZATION REQUEST SUBMITTED WITH CLINICALS VIA [facility] PROVIDER PORTAL, . PATIENT HAS MEDICARE SECONDARY, NO AUTHORIZATION REQUIRED., Ellie Harmonyla 10/22/2024 07:40:48 AM > AUTHORIZATION # [id number] APPROVED AND VALID 10/20/24-01/18/25 PER [facility] PROVIDER PORTAL. SCANNED INTO CHART AND FAXED TO [facility].Jed Sara 10/22/2024 08:07:50 AM > order faxed Referral Priority Routine Reason REFERRRL FOR [facility]VANCE [facility] Diagnosis 1 Compression fracture of T12 vertebra with routine healing, subsequent encounter (S22.080D) Referral Organization [facility] Referring Provider First Name Srai Referring Provider Last Name London Referring Provider Speciality Orthopedic Surgery Referred Organization [facility] General Notes Danielle Trammell 2024 12:40:48 PM >, Danielle Trammell 11/04/2024 03:46:43 PM >FAXED Referral Priority Routine Reason REFERRAL TO RHEUMATO LOG Diagnosis 1 Compression fracture of T12 vertebra with routine healing, subsequent encounter (S22.080D) Referral Organization [facility] Referring Provider First Name Arielle Referring Provider Last Name London Referring Provider Speciality Orthopedic Surgery Referred Organization Rheumatology [facility] Referred Address [address] [place] [address],[place], [place], General Notes Danielle Trammell 2024 12:42:25 PM >PATIENT ALREADY SEES RHEUMATOLOGY AND HAS APPOINTMENT IN DECEMBER Referral Priority Routine Medications Medication SIG (Take, Route, Frequency, Duration) Notes Start Date End Date Status DULoxetine 30 mg 3 cap(s) orally once a day Active aspirin 81 mg 1 tab(s) orally once a day Active Tylenol Active predniSONE 5 mg 2 tab(s) orally once a day Active Lyrica Active Vitamin D3 Active ibuprofen Active Metoprolol Tartrate 25 mg 0.5 tab(s) ora lly 2 times a day Active Melatonin 5 mg 1 cap(s) orally once a day (at bedtime) Active eszopiclone 3 mg 1 tab(s) orally once a day (at bedtime) Active Percocet Active atorvastatin 40 mg 1 tab(s) orally once a day Active pregabalin 100 mg 1 cap(s) orally 1-3 times a day Active Social History Tobacco Use: [...] leg, weakness in lower extremities, inability to cloth picker leg. Neurological: Positive for pain and burning sensation in legs. Objective : Problems Problem Type SNOMED Code ICD Code Onset Dates Problem Status W/U Status Risk Notes Problem 250061050 Pain in left leg (M79.605) Active confirmed Problem 53039310 Muscle weakness (M62.81) Active confirmed Problem 766713343 Other spondylosis with radiculopathy, lumbosacral region (M47.27) Active confirmed Problem 03434919517219296 Age-related osteoporosis with current pathological fracture, vertebra(e), initial encounter for fracture (M80.08XA) Active confirmed Problem 99481620 DDD (degenerative disc disease), thoracic (M51.34) Active confirmed Problem 434553937 Lumbar pain (M54.50) Active confirmed Vital Signs Height 5'4 in 10/31/2024 Weight 132 lbs 10/31/2024 BMI 22.66 10/31/2024 Encounters Encounter Location Date Provider Diagnosis [facility] [facility] [address] [place] [address] [place] [address] 10/10/2024 Renetta [place] Other spondylosis with radiculopathy, lumbosacral region M47.27 ; Muscle weakness M62.81 and Pain in left leg M79.605 [facility] [facility] [address] [place] [address] 10/31/2024 Arielle Callahan Compression fracture of T12 vertebra with routine healing, subsequent encounter S22.080D and Compression fracture of L4 vertebra with routine healing, subsequent encounter S32.040D [facility] [address] [place] [address] 10/20/2024 Arielle Callahan Assessments Encounter Date Diagnosis (ICD Code) Assessment Notes Treatment Notes Treatment Clinical Notes Section Notes 10/10/2024 Muscle weakness (ICD-10 - M62.81) 1. Left leg weakness/pa in 2. L3-S1 spondylosis /radiculopa thy 10/10/2024 Other spondylosis with radiculopathy, lumbosacral region (ICD-10 - M47.27) 1. Left leg weakness/pa in 2. L3-S1 spondylosis /radiculopa thy 10/31/2024 Compression fracture of T12 vertebra with routine healing, subsequent encounter (ICD-10 - S22.080D) 10/31/2024 Compression fracture of L4 vertebra with routine healing, subsequent encounter (ICD-10 - S32.040D) 10/10/2024 Pain in left leg (ICD-10 - [...] weakness/pa in 2. L3-S1 spondylosis /radiculopa thy 10/31/2024 Other Lise Covert, female patient with [...] weakness and radiculopathy, - Follow up with Glass Or Mirror Inspector Dr. Byrne for management of psoriatic arthritis and polymyalgia rheumatica, - No surgical intervention indicated at this time based on current MRI findings. Thanks once again. If we can be of further service to your patients with disorders of the spine, cervical, thoracic, or lumbar, please do not hesitate to contact me. Best regards, Plan Of Treatment Pending Test Test Name Order Date Lumbar spine, 4v flex ext - 13184 2024 MRI : Lumbosacral Spine W/O Contrast - 7 214705/14/2023 DME 06/12/2023 MRI : Lumbosacral Spine W/O Contrast - 7 214710/10/2024 Insurance Providers Payer Name Payer Address Payer Phone Subscriber Number Group Number Insured Name Patient Relationship to Insured Coverage Start Date Coverage End Date [employer] [address] [address] [place] [address] [id number] Covert, Kirby Spouse - patient is the spouse of the insured 5 Medicare [address] [place] [phone] [id number] COVERT, LISE Self - patient is the insured Medical (General) History Medical History History ICD Code High Blood Pressure Diabetes Heart Attack Kidney trouble Depression Abnormal Heart Rhythm Bronchitis Emphysema Gastric Reflux Osteoporosis Osteoarthritis Anemia Ovarian Cysts Anxiety Seen a Psychiatrist - Polymyalgia rheumatica - Psoriatic arthritis - Old compression fracture at T12 - Old compression fracture at L4 Medications and Supplements - Infusion for psoriatic arthritis - Discontinued Surgical History Surgery Date(Month/Year) x2 Abdominal Bilateral lung
--- OUTSIDE RECORDS SUMMARY | 2024-12-10 14:16 | XMS_ITS | Encounter Summary ---
Author Organization [facility] Address [address] [place] [address] Care Team Providers Care Board Worker Name Role Phone Erasto Henry MD Primary Care Provider [phone] Encounter Details Date Type Department Care Team (Late st Contact Info) Description 06/10/2024 Orders Only [facility] [address] [place] [phone] Shaikh Cabrera MD [address] [place] [address] Social History Tobacco Use Types Packs/Day Years [...] [address] [place] [phone] Pedro Pablo Thomas MD [address] H[address] [place] [phone] 01/12/2025 1:45 PM EDT Office Visit [facility] [address] [place] [address] Erasto Henry MD [address] [place] [address] documented as of this encounter Procedures Procedure Name Priority Date/Time Associated Diagnosis Comments ELECTROCARDIOGRAM REPORT Routine 024 7:51 AM EST documented in this encounter Results * Electrocardiogram Report (06/06/2024 7:51 AM EST) us Shaikh Rick SALDIVAR IN CLINIC/BEDSIDE ORDERABLES Fi nal Result documented in this encounter Visit Diagnoses Not on filedocumented in this encounter Care Teams Board Worker Relationship Specialty Start Date End Date Erasto Henry MD [address] [place] [address] PCP - General Family Medicine 02/21/24 documented as of this encounter
--- OUTSIDE RECORDS SUMMARY | 2024-12-10 14:16 | XMS_ITS | Clinical Summary ---
Author Organization [facility] Address [address] [place] [address] Care Team Providers Care Veterans Employment Representative Name Role Phone Erasto Henry MD Primary Care Provider [phone] Christoph Mobley MD Unavailable [phone] Allergies Active Allergy Reactions Criticality Noted Date [...] on 06/27/2023 cholecalciferol (Vitamin D-3) 50 MCG (1999) tablet Take 50 mcg by mouth in the morning. Active glipiZIDE (Glucotrol) 5 mg tablet Take 5 mg by mouth 1 (one) time each day. Active omeprazole (PriLOSEC) [address] capsule Take 40 mg by mouth before breakfast. Do not crush or chew. Active HYDROcodone-acetami nophen ([place]) 5-325 mg tablet Take 1 tablet by mouth every 8 (eight) hours if needed. 05/14/2023 Active potassium chloride CR (K-Tab) 20 mEq ER tablet Take 20 mEq by mouth once daily as directed. 05/30/2023 Active ferrous sulfate 325 (65 Fe) MG tablet Take 65 mg by mouth with breakfast. Active metoprolol tartrate (Lopressor) 25 mg tabletIndications:C oronary artery disease involving [place] coronary artery of [place] heart without angina pectoris,Benign essential hypertension Take 0.5 tablets (12.5 mg) by mouth in the morning and at bedtime. 90 tablet 3 01/07/2024 01/06/2025 Active atorvastatin (Lipitor) 40 mg tabletIndications:C oronary artery disease involving [place] coronary artery of [place] heart without angina pectoris TAKE 1 TABLET(40 [...] (non-ST elevated myoc ardial infarction) 06/05/2023 06/07/2023 Encounters Date Type Department Care Team Description 10/05/2024 [facility] Heart at [place] [address] [place] [address] Fletcher Neff MD Coronary artery disease involving [place] coronary artery of [place] heart without angina pectoris from Last 3 Months Immunizations Name Administration Dates Next Due Unspecified Sars-Cov-2 Vaccination 06/17/2021,,09/23/2020 Family History Medical History Relation Name Comments Stroke Father Stroke Father's Sister Coronary artery disease Paternal Grandmother Relation Name Status Comments Father Father's Sister Paternal Grandmother Social History Tobacco Use Types Packs/Day Years [...] place to sleep or slept in a chcf (including now)? No 06/04/2023 Hunger Vital Sign [...] Description 01/26/2025 2:15 PM EDT Office Visit [place] [address] [place] [address] Fletcher Neff MD [address] [facility] [place] [address] Health Maintenance Due Date Last Done Comments CT Colonography 1957 Colonoscopy 1957 Colorectal Cancer Screening 1957 FIT-DNA 1957 FIT 1957 FOBT 1957 Medicare Annual Wellness (AWV) 1957 Sigmoidoscopy 1957 Diabetes: Retinopathy Screening 1967 Depression Screening 1969 Diabetes: Urine Protein Screening 1976 Adult Tetanus 1979 Mammogram 1997 Zoster Vaccines (1 of 2) 2007 Fall Risk Screening 2022 Diabetes: Hemoglobin A1C 09/05/2023 023, 06/05/2023, 03/10/2022 COVID-19 Vaccine ( season) 2024 05/05/2022, 06/17/2021, 06/17/2021, Additional history exists Influenza Vaccine (Season Ended) 2025 Pneumococcal Vaccine: 65+ Years Completed 05/05/2022 HIB Vaccines Aged Out No longer eligi ble based on patient's age to complete this topic HPV Vaccines Aged Out No longer eligi ble based on patient's age to complete this topic IPV Vaccines Aged Out No longer eligi ble based on patient's age to complete this topic Meningococcal B Vaccine Aged Out No l onger eligible based on patient's age to complete this topic Meningococcal Vaccine Aged Out No bull gail eligible based on patient's age to complete this topic Rotavirus Vaccines Aged Out No longer eligible based on patient's age to complete this topic Procedures Procedure Name Priority Date/Time Associated Diagnosis Comments HEMOGLOBIN A1C Routine 06/05/2023 3:02 AM EST from Last 3 Months or Most Recently Relevant to Health Maintenance Results * (ABNORMAL) Hemoglobin A1c (06/05/2023 3:02 AM EST) Hemoglobin A1C 7.2(H) 4.0 - 6.0 % 06/05/2023 9:10 AM EST [facility] ([facility]) Estimated Average Glucose 160 mg/dL 06/05/2023 9:10 AM EST [facility] ([facility]) Blood Venous blood specimen / Unknown Arterial Line / Unknown 06/05/2023 3:02 AM EST 06/05/2023 3:10 AM EST Maria Victoria Finley MD LAB BLOOD ORDERABLES [facility] ([facility]) [address] [place] [address] from Last 3 Months or Most Recently [...] If Any Apply: No Intubation Care Teams Veterans Employment Representative Relationship Specialty Start Date End Date Erasto Henry MD [address] [place] [address] PCP - General 03/08/22 Christoph Mobley MD [address] [place] [address] Hematology and Oncology 04/03/22 [facility] [address] [place] [address] [place] 04/26/22
--- OUTSIDE RECORDS SUMMARY | 2024-12-10 14:16 | XMS_ITS | Encounter Summary ---
Author Organization [facility] Address [address] [facility] [place] [address] Care Team Providers Care Order Analyst Name Role Phone Erasto Henry MD Primary Care Provider [phone] Encounter Details Date Type Department Care Team (Late st Contact Info) Description 12/02/2024 Clinisync Result Encounter NOMS External Department Unsolicited [...] Visit [facility] SWS NEUR B [address] [place] [address] Pedro Pablo Thomas MD 2050 [facility] [address] [place] [address] 01/12/2025 1:45 PM EDT Office Visit [facility] IRENE FM [address] [place] [address] Erasto Henry MD [address] [place] [address] documented as of this encounter Procedures Procedure Name Priority Date/Time Associated Diagnosis Comments ALL SED RATE Routine 12/02/2024 11:10 AM EDT ALL C REACTIVE PROTEIN Routine 12/02/2024 11:10 AM EDT documented in this encounter Results * (ABNORMAL) ALL C REACTIVE PROTEIN (12/02/2024 11:10 AM EDT) C REACTIVE PROTEIN 2.80(H) <=0.50 mg/dL TBH 12/02/2024 11:1 0 AM EDT 12/02/2024 11:11 AM EDT Narrative CLINISYNC - 12/02/2024 12:06 PM EDT Generic External Data Provider CLINISYNC F inal Result Performing Organization Address [facility]/ZIP Co de Phone Number CLINISYNC TB * (ABNORMAL) ALL SED RATE (12/02/2024 11:10 AM EDT) Pathologist [facility] SED RATE 67(H) <=30 mm/hr [facility] 12/02/2024 11:1 0 AM EDT 12/02/2024 11:11 AM EDT Narrative CLINISYNC - 12/02/2024 11:26 AM EDT Generic External Data Provider CLINISYNC F inal Result Performing Organization Address [facility]/ZIP Co de Phone Number CLINIS[facility]NC TB documented in this encounter Visit Diagnoses Not on filedocumented in this encounter Care Teams Order Analyst Relationship Specialty Start Date End Date Erasto Henry MD [address] [place] [address] PCP - General Family Medicine 02/21/24 documented as of this encounter
--- OUTSIDE RECORDS SUMMARY | 2024-12-10 14:16 | XMS_ITS | Encounter Summary ---
Author Organization [facility] Address [address] [place] [address] Care Team Providers Care Learning Support Assistant Name Role Phone Erasto Henry MD Primary Care Provider [phone] Christoph Mobley MD Unavailable [phone] Reason for Visit * Reason Comments Med Refill Encounter Details Date Type Department Care Team (Late st Contact Info) Description 07/17/[address] [address] Tanya Lao, ELIANA [address] [place] [address] Coronary artery disease due to lipid rich plaque Social History Tobacco Use Types Packs/Day Years Used Date Smoking Tobacco: Former Cigarettes Q uit: 03/06/2022 Smokeless Tobacco: Never Sex and Gender Information Value Date Recorded Sex Assigned at Not on file Gender Identity Not on file Sexual Orientation Not on file documented as of this encounter Plan of Treatment Upcoming Encounters Date Type Department Care Team (Late st Contact Info) Description 01/26/2025 2:15 PM EDT Office Visit [address] [address] Fletcher Neff MD [address] [facility] [place] [address] documented as of this encounter Visit Diagnoses Diagnosis Coronary artery disease due to lipid rich plaque documented in this encounter Care Teams Learning Support Assistant Relationship Specialty Start Date End Date Erasto Henry MD [address] [place] [address] PCP - General 03/08/22 Christoph Mobley MD [address] [place] [address] Hematology and Oncology 04/03/22 Fish Andrade [address] [place] [address] Inclusion Specialist 04/26/22 documented as of this encounter
--- OUTSIDE RECORDS SUMMARY | 2024-12-10 14:17 | XMS_ITS | Encounter Summary ---
Author Organization [facility] Address [address] [place] [address] Care Team Providers Care Ash Collector Name Role Phone Erasto Henry MD Primary Care Provider [phone] Erasto Henry MD Primary Care Provider [phone] Encounter Details Date Type Department Care Team [...] [facility] S[facility] NEUR B [address] [place] [address] Pedro Pablo Thomas MD [address] [facility] [address] [place] [id number] 01/12/2025 1:45 PM EDT Office Visit [facility] CWRustam FM [address] [place] [address] rEasto Henry MD [address] [place] [address] documented as of this encounter Procedures Procedure Name Priority Date/Time Associated Diagnosis Comments XR DEXA AXIAL SKELETON 02/12/2024 3:15 PM EDT documented in this encounter Results * XR DEXA AXIAL SKELETON (02/12/2024 3:15 PM EDT) Anatomical Region Laterality Modality Other 02/12/2024 3:15 PM EDT Narrative 02/12/2024 3:18 PM EDT The [address] [address] XRay Report Signed Patient: OMEGATLISE MR#: [id number] : 1955 Acct:[id number] Age/Sex: 68 / F ADM Date: 02/12/24 Loc: [facility] Attending Dr: Viviane Hayes NP Ordering Physician: Viviane Hayes NP Date of Service: 02/12/24 Procedure(s): XR DEXA axial skeleton Accession Number(s): [id number] cc: Erasto Henry M.D.; Viviane Hayes NP The [place] [id number] Patient Name: LISE Easton COVERT MRN: [id number] date: 1955 Sex: F Assigned Patient Location: [facility] Current Patient Location: [facility] Accession/Order Number: [id number] Exam Date: 02/12/2024 13:00 Report Date: 02/12/2024 [...] prevention and treatment of osteoporosis. Osteoporos Int. 2021;33(10):7867-5947. doi: 10.1007/b02171-238-03823-s. Epub 2021Nov 03. Erratum in: Osteoporos Int. 2021Feb 02;: PMID: [id number]; PMCID: [id number]. Electronically authenticated by: KIRBY CASTILLO Date: 02/12/2024 15:15 Dictated By: Kirby Castillo M.D. Signed By: 02/12/24 1518 DD/ 1515 TD/TT: Registered Dietician: Procedure Note Radiology, Radiologist, - 02/12/2024 [place] [address] XRay Report Signed Patient: LISE CANALES MMR#: [id number] : 1955cct:[id number] Age/Sex: 68 / FADM Date: 02/12/24 Loc: RAD Attending Dr: Viviane Hayes NP Ordering Physician: Viviane Hayes NP Date of Service: 02/12/24 Procedure(s): XR DEXA axial skeleton Accession Number(s): [id number] cc: Erasto Henry M.D.; Viviane Hayes NP [facility] [place] [id number] Patient Name: LISE Easton COVERRussell MRN: [id number] date: 1955 Sex: F Assigned Patient Location: [facility] Current Patient Location: [facility] Accession/Order Number: [id number] Exam Date: 02/12/2024 13:00 Report Date: 02/12/2024 [...] 10-year hip fracture risk >= 3% or [id number] major osteoporosis-related fracture risk >= 20% (i.e., [...] to prevention and treatment of osteoporosis.Osteoporos Int. 2021;33(10):0984-8281. doi: 10.1007/y83994-146-82029-m. Ep. Erratum in: Osteoporos Int. 2021Feb 02;: PMID: [id number]; PMCID: [id number]. Electronically authenticated by: KIRBY CASTILLO Date: 02/12/2024 15:15 Dictated By: Kirby Castillo M.D. Signed By:02/12/24 1518 DD/ 1515 TD/TT: Registered Dietician: us Generic External Data Provider CLINIS[facility]NC IMAGING Final Result documented in this encounter Visit Diagnoses Not on filedocumented in this encounter Care Teams Ash Collector Relationship Specialty Start Date End Date Erasto Henry MD PCP - General Family Medicine 07/09/22 02/20/24 Erasto Henry MD [address] [place] [address] PCP - General Family Medicine 02/21/24 documented as of this encounter
--- OUTSIDE RECORDS SUMMARY | 2024-12-10 14:17 | XMS_ITS | Encounter Summary ---
Author Organization [facility] Address [address] [place] [address] Care Team Providers Care Blood Donor Recruiter Name Role Phone Erasto Henry MD Primary Care Provider Erasto Henry MD Primary Care Provider Encounter Details Date Type Department Care Team (Late Contact Info) Description 12/18/2023 Orders Only [facility] C[facility] FM [address] [place] [address] Jaya Ayala PA [address] [place], [place] [id number] Social History Tobacco Use Types Packs/Day Years [...] B [address] [place] [address] Pedro Pablo Thomas MD 2505 [facility] [address] [place] [address] 01/12/2025 1:45 PM EDT Office Visit [facility] CWM [address] [place] [address] Erasto Henry MD [address] [place] [address] documented as of this encounter Procedures [...] on filedocumented in this encounter Care Teams Blood Donor Recruiter Relationship Specialty Start Date End Date Erasto Henry MD PCP - General Family Medicine 07/09/22 02/20/24 Erasto Henry MD [address] [place] [address] PCP - General Family Medicine 02/21/24 documented as of this encounter
--- OUTSIDE RECORDS SUMMARY | 2024-12-10 14:17 | XMS_ITS | Encounter Summary ---
Author Organization [facility] Address [address] [facility] [place] [address] Care Team Providers Care Ditcher Name Role Phone Erasto Henry MD Primary Care Provider Erasto Henry MD Primary Care Provider [phone] Encounter Details Date Type Department Care Team (Late Contact Info) Description 12/19/2023 Orders Only [facility] CWM [address] [place] [address] Erasto Henry MD [address] [place] [address] Social History Tobacco Use Types Packs/Day Years [...] Upcoming Encounters Date Type Department Care Team ([facility] Contact Info) Description 12/12/2024 1:15 PM EDT Procedure Visit [facility] SWS NEUR B [address] [facility] [address] [place] [address] Pedro Pablo Thomas MD [address] [place] [address] 01/12/2025 1:45 PM EDT Office Visit [facility] CWM FM [address] [place] [address] Erasto Henry MD [address] [place] [address] documented as of this encounter Visit Diagnoses Not on filedocumented in this encounter Care Teams Ditcher Relationship Specialty Start Date End Date Erasto Henry MD PCP - General Family Medicine 07/09/22 02/20/24 Erasto Henry MD [address] [place] [address] PCP - General Family Medicine 02/21/24 documented as of this encounter
--- OUTSIDE RECORDS SUMMARY | 2024-12-10 14:17 | XMS_ITS | Encounter Summary ---
Author Organization [facility] Address [address] [facility] [place] [address] Care Team Providers Care Electronics Supervisor Name Role Phone Erasto Henry MD Primary Care Provider [phone] Erasto Henry MD Primary Care Provider [phone] Encounter Details Date Type Department Care Team (Late Contact Info) Description 02/15/2024 Orders Only [facility] BWM GENS [address] [place] [address] Erasto Henry MD [address] [place] [address] Social History Tobacco Use Types Packs/Day Years [...] [place] [address] Pedro Pablo Thomas MD [address] [place] [address] [place] [address] 01/12/2025 1:45 PM EDT Office Visit [facility] CWM FM [address] [place] [address] Erasto Henry MD [address] [place] [address] documented as of this encounter Procedures Procedure Name Priority Date/Time Associated Diagnosis Comments ELECTROCARDIOGRAM REPORT Routine 024 9:27 AM EDT documented in this encounter Results * Electrocardiogram Report (02/14/2024 9:27 AM EDT) Erasto Henry MD IN CLINIC/BEDSIDE ORDERABLES Fin al Result documented in this encounter Visit Diagnoses Not on filedocumented in this encounter Care Teams Electronics Supervisor Relationship Specialty Start Date End Date Erasto Henry MD PCP - General Family Medicine 07/09/22 02/20/24 Erasto Henry MD [address] [place] [address] PCP - General Family Medicine 02/21/24 documented as of this encounter
--- OUTSIDE RECORDS SUMMARY | 2024-12-10 14:17 | XMS_ITS | Encounter Summary ---
Author Organization [facility] Address [address] [place] [address] Care Team Providers Care Information Assurance Analyst Name Role Phone Erasto Henry MD Primary Care Provider [phone] Encounter Details Date Type Department Care Team (Late Contact Info) Description 07/10/2024 Orders Only [facility] CWM [address] [place] [address] Gt Wyatt MD [address] [place] [address] Social History Tobacco Use Types [...] Visit [facility] MARCELLA NEUR B [address] [facility] [address] [place] [address] Pedro Pablo Thomas MD 6[address] [facility] [address] [address] 01/12/2025 1:45 PM EDT Office Visit [facility] CWM [address] [place] [address] Erasto Henry MD [address] [place] [address] documented as of this encounter [...] on filedocumented in this encounter Care Teams Information Assurance Analyst Relationship Specialty Start Date End Date Erasto Henry MD [address] [place] [address] PCP - General Family Medicine 02/21/24 documented as of this encounter
--- OUTSIDE RECORDS SUMMARY | 2024-12-10 14:17 | XMS_ITS | Encounter Summary ---
Author Organization [facility] Address [address] [place] [address] Care Team Providers Care Gun Barrel Finisher Name Role Phone Erasto Henry MD Primary Care Provider [phone] Erasto Henry MD Primary Care Provider [phone] Encounter Details Date Type Department Care Team (Late Contact Info) Description 02/14/2024 Orders Only [facility] BWM GENS [address] [place] [address] Enmanuel Bond MD [address] [place] [address] Social History Tobacco Use Types Packs/Day Years [...] B [address] [place] [address] Pedro Pablo Thomas MD [address] [place] [address] 01/12/2025 1:45 PM EDT Office Visit [facility] CWM FM [address] [place] [address] Erasto Henry MD [address] [place] [address] documented as of this encounter [...] on filedocumented in this encounter Care Teams Gun Barrel Finisher Relationship Specialty Start Date End Date Erasto Henry MD PCP - General Family Medicine 07/09/22 02/20/24 Erasto Henry MD [address] [place] [address] PCP - General Family Medicine 02/21/24 documented as of this encounter
--- OUTSIDE RECORDS SUMMARY | 2024-12-10 14:17 | XMS_ITS | Encounter Summary ---
Author Organization [facility] Address [address] [place] [address] Care Team Providers Care Veterinary X Ray Operator Name Role Phone Erasto Henry MD Primary Care Provider [phone] Encounter Details Date Type Department Care Team (Late Contact Info) Description 06/09/2024 Orders Only [facility] CWRustam [address] [place] [address] Erasto Henry MD [address] [place] [address] Social History Tobacco Use Types Packs/Day Years [...] [facility]OMS MARCELLA VALDEZ B [address] [facility] [address] [place] [address] Pedro Pablo Thomas MD [address] [facility] [address] [phone] 01/12/2025 1:45 PM EDT Office Visit [facility] CWM [address] [place] [address] Erasto Henry MD [address] [place] [address] documented as of this encounter [...] on filedocumented in this encounter Care Teams Veterinary X Ray Operator Relationship Specialty Start Date End Date Erasto Henry MD [address] [place] [address] PCP - General Family Medicine 02/21/24 documented as of this encounter
--- OUTSIDE RECORDS SUMMARY | 2024-12-10 14:17 | XMS_ITS | Clinical Summary ---
Author Organization [employer] [facility] tem Address [id number] [address] [place] [address] Care Team Providers Care Bolt Loader Name Role Phone Ihsan Abraham MD Primary [...] Devices Not on file Insurance [address] [place] [address] [employer] Care Teams Bolt Loader Relationship Specialty Start Date End Date Ihsan Abraham MD PCP - General Urology 02/24/19
--- OUTSIDE RECORDS SUMMARY | 2024-12-10 14:17 | XMS_ITS | Encounter Summary ---
Author Organization [facility] Address [address] [place] [address] Care Team Providers Care Account Analyst Name Role Phone Erasto Henry MD Primary Care Provider [phone] Encounter Details Date Type Department Care Team (Late Contact Info) Description 07/08/2024 Orders Only [facility] BWRustam GENS [address] [place] [address] Erasto Henry MD [address] [place] [address] Social History Tobacco Use Types Packs/Day Years [...] [address] [place] [address] Pedro Pablo Thomas MD [address] [facility] [address] [place], [place] [address] 01/12/2025 1:45 PM EDT Office Visit [facility] C[facility] FM [address] [place] [address] Erasto Henry MD [address] [place] [address] documented as of this encounter Procedures Procedure Name Priority Date/Time Associated Diagnosis Comments ELECTROCARDIOGRAM REPORT Routine 024 8:54 AM EST documented in this encounter Results * Electrocardiogram Report (07/07/2024 8:54 AM EST) Erasto Henry MD IN CLINIC/BEDSIDE ORDERABLES Fin al Result documented in this encounter Visit Diagnoses Not on filedocumented in this encounter Care Teams Account Analyst Relationship Specialty Start Date End Date Erasto Henry MD [address] [place] [address] PCP - General Family Medicine 02/21/24 documented as of this encounter
--- OUTSIDE RECORDS SUMMARY | 2024-12-10 14:17 | XMS_ITS | Encounter Summary ---
Author Organization [facility] Address [address] [place] [address] Care Team Providers Care Founder And Ceo Name Role Phone Erasto Henry MD Primary Care Provider [phone] Encounter Details Date Type Department Care Team (Late Contact Info) Description 06/26/2024 [facility] [address] [place] [address] Erasto Henry MD [address] [place] [address] Social History Tobacco Use Types Packs/Day Years [...] Visit [facility] MARCELLA VALDEZ B [address] [facility] [address] [place] [address] Pedro Pablo Thomas MD [address] [facility] [address] [id number] 01/12/2025 1:45 PM EDT Office Visit [facility] CWM [address] [place] [address] Erasto Henry MD [address] [place] [address] documented as of this encounter Visit Diagnoses Not on filedocumented in this encounter Care Teams Founder And Ceo Relationship Specialty Start Date End Date Erasto Henry MD [address] [place] [address] PCP - General Family Medicine 02/21/24 documented as of this encounter
--- OUTSIDE RECORDS SUMMARY | 2024-12-10 14:17 | XMS_ITS | Encounter Summary ---
Author Organization [facility] Address [address] [facility] [place] [address] Care Team Providers Care Infusion Therapy Nurse Name Role Phone Erasto Henry MD Primary Care Provider Erasto Henry MD Primary Care Provider Encounter Details Date Type Department Care Team (Late Contact Info) Description 06/14/2023 Orders Only [facility] C[facility] FM [address] [place] [address] Shaikh Cabrera MD [address] [place] [address] Social History Tobacco Use Types Packs/Day Years [...] Visit [facility] SWS NEUR B [address] [facility] [address] [place] [address] Pedro Pablo Thomas MD [address] [place] [address] 01/12/2025 1:45 PM EDT Office Visit [facility] CWRustam FM [address] [place] [address] Erasto Henry MD [address] [place] [address] documented as of this encounter Procedures Procedure Name Priority Date/Time Associated Diagnosis Comments CBC Routine 06/14/2023 12:09 PM EST documented in this encounter Results * CBC (06/14/2023 12:09 PM EST) Blood Venous blood specimen / Unknown us Shaikh Rick [facility] BLOOD ORDERABLES Final Resu lt documented in this encounter Visit Diagnoses Not on filedocumented in this encounter Care Teams Infusion Therapy Nurse Relationship Specialty Start Date End Date Erasto Henry MD PCP - General Family Medicine 07/09/22 02/20/24 Erasto Henry MD [address] [place] [address] PCP - General Family Medicine 02/21/24 documented as of this encounter
--- OUTSIDE RECORDS SUMMARY | 2024-12-10 14:17 | XMS_ITS | Encounter Summary ---
Author Organization [facility] Address [address] [place] [address] Care Team Providers Care Athletic Monitor Name Role Phone Erasto Henry MD Primary Care Provider [phone] Encounter Details Date Type Department Care Team (Late Contact Info) Description 11/20/2024 [facility] [address] [place] [address] Erasto Henry MD [address] [place] [address] Social History Tobacco Use Types Packs/Day Years [...] Visit [facility] MARCELLA VALDEZ B [address] [facility] [address] [place] [address] Pedro Pablo Thomas MD 2[address] [facility] [address] [phone] 01/12/2025 1:45 PM EDT Office Visit [facility] CWM FM [address] [place] [address] Erasto Henry MD [address] [place] [address] documented as of this encounter Procedures Procedure Name Priority Date/Time Associated Diagnosis Comments RHYTHM ECG, REPORT Routine 11/20/2024 11:41 AM EDT documented in this encounter Results * ECG 3 Lead (11/20/2024 11:41 AM EDT) Erasto Henyr MD IN CLINIC/BEDSIDE ORDERABLES Fin al Result documented in this encounter Visit Diagnoses Not on filedocumented in this encounter Care Teams Athletic Monitor Relationship Specialty Start Date End Date Erasto Henry MD [address] [place] [address] PCP - General Family Medicine 02/21/24 documented as of this encounter
--- OUTSIDE RECORDS SUMMARY | 2024-12-10 14:17 | XMS_ITS | Encounter Summary ---
Author Organization [facility] Address [address] [place] [address] Care Team Providers Care Chief Enterprise Architect Name Role Phone Erasto Henry MD Primary Care Provider Erasto Henry MD Primary Care Provider [phone] Encounter Details Date Type Department Care Team (Late Contact Info) Description 11/14/2023 Abstract [facility] [address] [place] [address] Erasto Henry MD [address] [place] [address] Social History Tobacco Use Types Packs/Day Years [...] Upcoming Encounters Date Type Department Care Team ([facility] Contact Info) Description 12/12/2024 1:15 PM EDT Procedure Visit [facility] SWS NEUR B [address] [facility] [address] [place] [address] Pedro Pablo Thomas MD [address] [facility] [address] [place] [address] 01/12/2025 1:45 PM EDT Office Visit [facility] CWM FM [address] [place] [address] Erasto Henry MD [address] [place] [address] documented as of this encounter Visit Diagnoses Not on filedocumented in this encounter Care Teams Chief Enterprise Architect Relationship Specialty Start Date End Date Erasto Henry MD PCP - General Family Medicine 07/09/22 02/20/24 Erasto Henry MD [address] [place] [address] PCP - General Family Medicine 02/21/24 documented as of this encounter
--- OUTSIDE RECORDS SUMMARY | 2024-12-10 14:17 | XMS_ITS | Encounter Summary ---
Author Organization [facility] Address [address] [facility] [place] [address] Care Team Providers Care Patent Law Specialist Name Role Phone Erasto Henry MD Primary Care Provider [phone] Encounter Details Date Type Department Care Team [...] B [address] [place] [address] Pedro Pablo Thomas MD [address] [facility] [address] [place] [address] 01/12/2025 1:45 PM EDT Office Visit [facility] [address] [place] [address] Erasto Henry MD [address] [facility] [place] [address] documented as of this encounter Procedures Procedure Name Priority Date/Time Associated Diagnosis Comments CT LUNG SCREENING LOW DOSE 02/21/2024 6:27 AM EDT documented in this encounter Results * CT LUNG SCREENING LOW DOSE (02/21/2024 6:27 AM EDT) Anatomical Region Laterality Modality Other 02/21/2024 6:27 AM EDT Narrative 02/21/2024 6:30 AM EDT The [place] [id number] CT Scan Report Signed Patient: SANDRA CANALES MR#: [id number] : 1955 Acct:[id number] Age/Sex: 68 / F ADM Date: 02/19/24 Loc: CT Attending Dr: Fish Quezada D.O. Ordering Physician: Fish Quezada D.O. Date of Service: 02/19/24 Procedure(s): CT lung screening low-dose Accession Number(s): [id number] cc: Erasto Henry M.D. The [address] [address] Patient Name: SANDRA CANALES MRN: [id number] date: 1955 Sex: F Assigned Patient Location: CT Current Patient Location: ED.MAIN Accession/Order Number: [id number] Exam Date: 02/19/2024 13:15 Report Date: 02/21/2024 06:27 At the request of: FISH QUEZADA Procedure: CT lung screening low-dose EXAMINATION: [...] Kirby Castillo M.D. Signed By: 02/21/2430 DD/ TD/TT: Tower Equipment Repairer: Procedure Note Radiology, Radiologist, MD - 02/21/2024 [place] [address] CT Scan Report Signed Patient: SANDRA CANALES#: [id number] : 1955cct:[id number] Age/Sex: 68 / FADM Date: 02/19/24 Loc: CT Attending Dr: Fish Quezada D.O. Ordering Physician: Fish Quezada D.O. Date of Service: 02/19/24 Procedure(s): CT lung screening low-dose Accession Number(s): [id number] cc: Erasto Henry M.D. The [address] [address] Patient Name: SANDRA DUFFT MRN: [id number] date: 1955 Sex: F Assigned Patient Location: CT Current Patient Location: ED.MAIN Accession/Order Number: [id number] Exam Date: 02/19/2024 13:15 Report Date: 02/21/2024 06:27 At the request of: FISH QUEZADA Procedure: CT lung screening low-dose EXAMINATION: [...] Castillo M.D. Signed By:02/21/2430 DD/ 6 TD/TT: Tower Equipment Repairer: Generic External Data Provider [facility] Final Result documented in this encounter Visit Diagnoses Not on filedocumented in this encounter Care Teams Patent Law Specialist Relationship Specialty Start Date End Date Erasto Henry MD [address] [place] [address] PCP - General Family Medicine 02/21/24 documented as of this encounter
--- OUTSIDE RECORDS SUMMARY | 2024-12-10 14:17 | XMS_ITS | Encounter Summary ---
Author Organization [facility] Address [address] [place] [address] Care Team Providers Care Drill Rig Operator Name Role Phone Erasto Henry MD Primary Care Provider [phone] Encounter Details Date Type Department Care Team (Late Contact Info) Description 07/22/2024 [facility] [address] [place] [address] Erasto Henry MD [address] [place] [address] Social History Tobacco Use Types Packs/Day Years [...] [address] [facility] [address] [place] [phone] Pedro Pablo Thomas MD [address] [facility] 111 [place], [place] [address] 01/12/2025 1:45 PM EDT Office Visit [facility] [address] [place] [address] Erasto Henry MD [address] [place] [address] documented as of this encounter Visit Diagnoses Not on filedocumented in this encounter Care Teams Drill Rig Operator Relationship Specialty Start Date End Date Erasto Henry MD [address] [place] [address] PCP - General Family Medicine 02/21/24 documented as of this encounter
--- OUTSIDE RECORDS SUMMARY | 2024-12-10 14:17 | XMS_ITS | Encounter Summary ---
Author Organization [facility] Address [address] [place] [address] Care Team Providers Care Boat Rigger Name Role Phone Erasto Henry MD Primary Care Provider [phone] Encounter Details Date Type Department Care Team (Late Contact Info) Description 08/29/2024 [facility] [address] [place] [address] Erasto Henry MD [address] [place] [address] Social History Tobacco Use Types Packs/Day Years [...] Visit [facility]LLA VALDE[facility] B [address] [facility] [address] [place] [phone] Pedro Pablo Thomas MD 46[address] [facility] 111 [place], [place] [phone] 01/12/2025 1:45 PM EDT Office Visit [facility] [address] [place] [address] Erasto Henry MD [address] [place] [address] documented as of this encounter [...] on filedocumented in this encounter Care Teams Boat Rigger Relationship Specialty Start Date End Date Erasto Henry MD [address] [place] [address] PCP - General Family Medicine 02/21/24 documented as of this encounter
--- OUTSIDE RECORDS SUMMARY | 2024-12-10 14:17 | XMS_ITS | Encounter Summary ---
Author Organization [facility] Address [address] [place] [address] Care Team Providers Care Art Preparator Name Role Phone Erasto Henry MD Primary Care Provider Erasto Henry MD Primary Care Provider Encounter Details Date Type Department Care Team (Late Contact Info) Description 02/19/2024 Orders Only [facility] [address] [place] [phone] Soledad Wasserman MD [address] [place] [address] Social History Tobacco Use Types [...] B [address] [place] [address] Pedro Pablo Thomas MD 2762 [facility] 111 [place] [address] 01/12/2025 1:45 PM EDT Office Visit [facility] [address] [place] [phone] Erasto Henry MD [address] [place] [address] documented as of this encounter Procedures [...] on filedocumented in this encounter Care Teams Art Preparator Relationship Specialty Start Date End Date Erasto Henry MD PCP - General Family Medicine 07/09/22 02/20/24 Erasto Henry MD [address] [place] [address] PCP - General Family Medicine 02/21/24 documented as of this encounter
--- OUTSIDE RECORDS SUMMARY | 2024-12-10 14:17 | XMS_ITS | Encounter Summary ---
Author Organization [facility] Address [address] [place] [address] Care Team Providers Care Candle Molder Hand Name Role Phone Erasto Henry MD Primary Care Provider [phone] Encounter Details Date Type Department Care Team (Late st Contact Info) Description 11/28/2024 Telephone [facility] [address] [place] [address] Pedro Pablo Thomas MD [address] [place], [place] [phone] Social History Tobacco Use Types Packs/Day Years [...] healthscope covered at 100% after 50.00 co-pay--has [address] that will merchandise pickup/receiving associate 50.00 co-pay REF #[id number] documented in this encounter Plan of Treatment Upcoming Encounters Date Type Department Care Team (Late st Contact Info) Description 12/12/2024 1:15 PM EDT Procedure Visit [facility]LLA VALDEZ B [address] [facility] [address] [place] [address] Pedro Pablo Thomas MD [address] [facility] 111 [place], [place] [address] 01/12/2025 1:45 PM EDT Office Visit [facility] [address] [place] [address] Erasto Henry MD [address] [place] [address] documented as of this encounter Visit Diagnoses Not on filedocumented in this encounter Care Teams Candle Molder Hand Relationship Specialty Start Date End Date Erasto Henry MD [address] [place] [address] PCP - General Family Medicine 02/21/24 documented as of this encounter
--- OUTSIDE RECORDS SUMMARY | 2024-12-10 14:17 | XMS_ITS | Clinical Summary ---
Author Organization [facility] Address [address] [place] [address] Care Team Providers Care Egg Caser Name Role Phone Erasto Henry MD Primary Care Provider [phone] Allergies Active Allergy Reactions Criticality Noted Date [...] before bedtime. 90 capsule 2 025 Active arginine 500 MG tablet Take 1 [...] hyperglycemia, without long-term current use of insulin ([facility]) TAKE 1 TABLET(5 MG) BY [...] 3 days 39 tablet 025 2024 Discontinued pregabalin (Lyrica) 100 MG capsuleIndication s:DDD (degenerative [...] to 7 days 025 2024 Discontinued(R eorder) oxyCODONE-acetami nophen (Percocet) 5-325 MG tabletIndications :Degeneration of intervertebral disc of lumbar region with discogenic back pain and lower extremity pain Take 1 tablet by mouth 4 (four) times a day as needed for severe pain or moderate pain for up to 7 days 28 tablet 025 2024 Active Problems Problem Noted Date Diagnosed Date [...] Encounters Date Type Department Care Team Description 12/02/2024 Clinisync Result Encounter NOMS External Department Unsolicited Provider, Generic External Data 11/28/2024 Telephone [facility] [address] [facility] [address] [address] Pedro Pablo Thomas MD 11/28/2024 Refill [facility] [address] [place] [address] Erasto Henry MD Degeneration of intervertebral disc of lumbar region with discogenic back pain and lower extremity pain 11/20/2024 10:45 AM EDT Office Visit [facility] [address] [place] [address] Erasto Henry MD Bullous emphysema (CMS/HCC) (Primary Dx); Degeneration of intervertebral disc of lumbar region with discogenic back pain and lower extremity pain; Lumbar radiculopathy; Numbness; Leg pain, left; Leg pain, right; Bilateral leg weakness 11/20/2024 Orders Only [facility] [address] [place] [address] Erasto Henry MD 11/20/2024 Bamboo flowsheet N[facility] [address] [place] [address] Erasto Henry MD 11/06/2024 Refill [facility] [address] [place] [address] Erasto Henry MD Degeneration of intervertebral disc of lumbar region with discogenic back pain and lower extremity pain 10/29/2024 Refill [facility] [address] [place] [address] Erasto Henry MD DDD (degenerative disc disease), lumbar 10/27/2024 Clinisync Result Encounter NOMS External Department Unsolicited Provider, Generic External Data 10/21/2024 Refill [facility] [address] [place] [address] Erasto Henry MD Degeneration of intervertebral disc of lumbar region with discogenic back pain and lower extremity pain 10/14/2024 Telephone [facility] [address] [place] [address] Erasto Henry MD 10/10/2024 Clinisync Result Encounter NOMS External Department Unsolicited Provider, Generic External Data 10/09/2024 1:00 PM EDT Office Visit [facility] [address] [place] [address] Erasto Henry MD Degeneration of intervertebral disc of lumbar region with discogenic back pain and lower extremity pain (Primary Dx); Type 2 diabetes mellitus with hyperglycemia, without long-term current use of insulin (CMS/HCC); Essential hypertension, benign (CMS/HCC); Dyslipidemia (CMS/HCC); Encounter for long-term (current) use of medications 10/09/2024 Bamboo flowsheet N[facility] [address] [place] [address] Erasto Henry MD 09/25/2024 Refill [facility] [address] [place] [address] Erasto Henry MD from Last 3 Months [...] 1:15 PM EDT Procedure Visit [facility] SWS JOSÉ MIGUEL B [address] [place] [address] Pedro Pablo Thomas MD [address] [facility] [address] [place] [address] 01/12/2025 1:45 PM EDT Office Visit [facility] [address] [place] [address] Erasto Henry MD [address] [place] [address] Health Maintenance Due Date Last Done Comments CT Colonography 1955 FIT-DNA 1955 FIT 1955 FOBT 1955 Sigmoidoscopy 1955 Mammogram 1997 Diabetes: Hemoglobin A1C 09/08/2024 024, 06/05/2023, 06/05/2023, Additional history exists Influenza Vaccine (Season Ended) 2025 Diabetes: Urine Protein Screening 10/10/2025 025 Diabetes: Retinopathy Screening 04/15/2026 Colonoscopy 12/11/2027 12/10/2017 Colorectal Cancer Screening 12/11/2027 Pneumococcal Vaccine: 65+ Years Completed 2, 05/05/2022 Procedures Procedure Name Priority Date/Time Associated Diagnosis Comments ALL C REACTIVE PROTEIN Routine 12/02/2024 11:10 AM EDT ALL SED RATE Routine 12/02/2024 11:10 AM EDT RHYTHM ECG, REPORT Routine 11/20/2024 11 :41 [...] METABOLIC PANEL Routine 10/10/2024 12:34 PM EDT [facility] LIVER PANEL Routine 10/10/2024 12:3 4 PM EDT from Last 3 Months Results * (ABNORMAL) ALL SED RATE (12/02/2024 11:10 AM EDT) TB SED RATE 67(H) <=30 mm/hr TBH 12/02/2024 11:1 0 AM EDT 12/02/2024 11:11 AM EDT Narrative [facility] - 12/02/2024 11:26 AM EDT us Generic External Data Provider [facility] F inal Result Performing Organization Address [facility]/ZIP Co de Phone Number [facility] * (ABNORMAL) ALL C REACTIVE PROTEIN (12/02/2024 11:10 AM EDT) Pathologist [facility] C REACTIVE PROTEIN 2.80(H) <=0.50 mg/dL TB 12/02/2024 11:1 0 AM EDT 12/02/2024 11:11 AM EDT Narrative [facility] - 12/02/2024 12:06 PM EDT Generic External Data Provider [facility] F inal Result Performing Organization Address [facility] Co de Phone Number [facility] * ECG 3 Lead (11/20/2024 11:41 AM EDT) us Erasto Henry MD IN CLINIC/BEDSIDE ORDERABLES Fin al Result * MR LUMBAR SPINE WO CON (10/27/2024 2:23 PM EDT) Anatomical Region Laterality Modality Other 10/27/2024 2:23 PM EDT Narrative 10/27/2024 2:26 PM EDT The [address] [address] Magnetic Resonance Report Signed Patient: LISE CANALES MR#: [id number] : 1955 Acct:[id number] Age/Sex: 69 / F ADM Date: 10/27/24 Loc: MRI Attending Dr: Micaela Perry M.D. Ordering Physician: Micaela Perry M.D. Date of Service: 10/27/24 Procedure(s): MR lumbar spine wo con Accession Number(s): [id number] cc: Erasto Henry M.D.; Micaela Perry M.D. [place] [address] Patient Name: LISE Easton COVERT MRN: [facility]:[id number] date: 1955 Sex: F Assigned Patient Location: MRI Current Patient Location: MRI Accession/Order Number: [id number] Exam Date: 10/27/2024 14:11 Report Date: 10/27/2024 [...] stenosis. Posterior element hypertrophy. Moderate left and gvbm-aa-aziyabfz right neural foraminal narrowing L4-5: Adequate disc [...] Enmanuel Mar M.D.10/27/2024 2:23 PM Dictation Location: [place] [address] Electronically authenticated by: [id number] Y Date: 10/27/2024 14:23 Dictated By: Enmanuel Mar D.O. Signed By: 10/27/24 1426 DD/ 1423 TD/TT: Food Counselor: Procedure Note Radiology, Radiologist, - 10/27/2024 [place] [address] Magnetic Resonance Report Signed Patient: LISE CANALES MMR#: [id number] : 1955cct:[id number] Age/Sex: 69 / FADM Date: 10/27/24 Loc: MRI Attending Dr: Micaela Perry M.D. Ordering Physician: Micaela Perry M.D. Date of Service: 10/27/24 Procedure(s): MR lumbar spine wo con Accession Number(s): [id number] cc: Erasto Henry M.D.; Micaela Perry M.D. The [place] [address] Patient Name: LISE Easton COVERT MRN: [id number] date: 1955 Sex: F Assigned Patient Location: MRI Current Patient Location: MRI Accession/Order Number: [id number] Exam Date: 10/27/2024 14:11 Report Date: 10/27/2024 [...] retropulsion of bony fracture at the superior [id number]. No cord edema or hemorrhage identified. Additional [...] canal stenosis. Posterior element hypertrophy. Moderate left armojpw-nr-ewnmfdhq right neural foraminal narrowing L4-5: Adequate disc [...] Enmanuel Mar M.D.10/27/2024 2:23 PM Dictation Location: [place] [address] Electronically authenticated by: [id number] Y Date: 4:23 Dictated By: Enmanuel Mar D.O. Signed By:10/27/24 1426 DD/ 1423 TD/TT: Food Counselor: Generic External Data Provider [facility] Final Result * (ABNORMAL) TBH MICROALB CREAT RATIO RANDOM (10/10/2024 3:00 PM EDT) MICROALBUMIN URINE RANDOM 9.4 <=30.0 mg/dL TBH CREATININE URINE RANDOM 139.77 20.00 - 300.00 mg/dL TB MICROALBUM CREATININE RATIO UR 67.2(H) 0.0 - 29.9 mg/g TBH Comment: NO MICROALBUMINURIA 0-29 MG/G CLINICAL MICROALBUMINURIA 30-300 MG/G MACROALBUMINURIA >300 MG/G 10/10/2024 3:00 PM EDT 10/10/2024 3:17 PM EDT Narrative [facility] - 10/10/2024 4:05 PM EDT Erasto Henry MD [facility] Final Result [facility] * XR LUMBAR SPINE MIN 4V (10/10/2024 12:41 PM EDT) Anatomical Region Laterality Modality Other 10/10/2024 12:4 1 PM EDT Narrative 10/10/2024 12:44 [place] [address] XRay Report Signed Patient: LISE CANALES MR#: [id number] : 1955 Acct:[id number] Age/Sex: 69 / F ADM Date: 10/10/24 Loc: EC Attending Dr: Micaela Perry M.D. Ordering Physician: Micaela Perry M.D. Date of Service: 10/10/24 Procedure(s): XR lumbar spine min 4V Accession Number(s): [id number] cc: Erasto Henry M.D.; Micaela Perry M.D. [place] [address] Patient Name: LISE CANALES MRN: [id number] date: 1955 Sex: F Assigned Patient Location: Current Patient Location: LAB Accession/Order Number: [id number] Exam Date: 10/10/2024 12:36 Report Date: 10/10/2024 [...] Allyn Contreras M.D.10/10/2024 12:41 PM Dictation Location: [place] [address] Electronically authenticated by: [id number] Y Date: 10/10/2024 12:41 Dictated By: Allyn Contreras M.D. Signed By: 10/10/24 1244 DD/ 1241 TD/TT: Food Counselor: Procedure Note Radiology, Radiologist, - 10/10/2024 [place] [address] XRay Report Signed Patient: LISE CANALES MMR#: [id number] : 1955cct:[id number] Age/Sex: 69 / FADM Date: 10/10/24 Loc: EC Attending Dr: Micaela Perry M.D. Ordering Physician: Micaela Perry M.D. Date of Service: 10/10/24 Procedure(s): XR lumbar spine min 4V Accession Number(s): [id number] cc: Erasto Henry M.D.; Micaela Perry M.D. [address] [address] Patient Name: LISE Easton COVERT MRN: [facility]:[id number] date: 1955 Sex: F Assigned Patient Location: Current Patient Location: LAB Accession/Order Number: [id number] Exam Date: 10/10/2024 12:36 Report Date: 10/10/2024 [...] Allyn Contreras M.D.10/10/2024 12:41 PM Dictation Location: [place] [address] Electronically authenticated by: [id number] Y Date: 2:41 Dictated By: Allyn Contreras M.D. Signed By:10/10/24 1244 DD/ 1241 TD/TT: Food Counselor: us Generic External Data Provider [facility] Final Result * (ABNORMAL) MLR HEMOGLOBIN A1C (10/10/2024 12:34 PM EDT) GLYCOHEMOGLOBIN A1C 6.4(H) 4.5 - 6.2 % [facility] Comment: ADA RECOMMENDED LIMIT 4.0 - 6.0 ADA THERAPEUTIC TARGET < 7.0 ACTION SUGGESTED > 7.0 ESTIMATED AVERAGE GLUCOSE 137 mg/dL TB 10/10/2024 12:3 4 PM EDT 10/10/2024 12:36 PM EDT Narrative [facility]OL[facility] - 10/10/2024 2:41 PM EDT Erasto DICKSON Final Result Performing Organization Address [facility] de Phone Number [place] [facility] * (ABNORMAL) [facility] LIVER PANEL (10/10/2024 12:34 PM EDT) BILIRUBIN TOTAL 0.3 0.2 - 1.0 mg/dL TBH BILIRUBIN DIRECT 0.1 0.0 - 0.2 mg/dL TB ASPARTATE AMINO TRANSFERASE 17 15 - 37 U/L TBH ALANINE AMINOTRANSFERASE 15 14 - 59 U/L TBH ALKALINE PHOSPHATASE 84 46 - 116 U/L TB TOTAL PROTEIN 6.5 6.4 - 8.2 g/dL TBH ALBUMIN LEVEL 2.9(L) 3.4 - 5.0 g/dL TBH GLOBULIN 3.6 g/dL TBH ALBUMIN GLOBULIN RATIO 0.8 TB 10/10/2024 12:3 4 PM EDT 10/10/2024 12:36 PM EDT Narrative [facility]OLPH - 10/10/2024 1:35 PM EDT Ersato DICKSON Final Result Performing Organization Address [facility] Co de Phone Number [place] [facility] * (ABNORMAL) ALL LIPID PROFILE (FASTING) (10/10/2024 [...] 1:35 PM EDT us Erasto Henry MD [facility] Final Result [facility] * (ABNORMAL) ALL CBC WITH AUTO DIFF [...] Narrative [facility] - 10/10/2024 1:37 PM EDT Erasto Henry MD [facility] Final Result [facility] * (ABNORMAL) ALL BASIC METABOLIC PANEL [...] 0.55 - 1.02 mg/dL TBH TBH EGFR-AF [facility] 41(L) >=60 mL/min/1.7 3m 2 TBH TBH EGFR-NON AF [facility] 34(L) >=60 mL/min/1.7 3m 2 TBH BUN CREATININE RATIO 11.7 TBH CALCIUM 9.7 8.5 - 10.1 mg/dL TBH 10/10/2024 12:3 4 PM EDT 10/10/2024 12:36 PM EDT Narrative [facility] - 10/10/2024 1:35 PM EDT Erasto COOKISYGAYLE Final Result [facility] from Last 3 Months Insurance [employer] Care Teams Egg Caser Relationship Specialty Start Date End Date Erasto Henry MD [address] [place] [phone] PCP - General Family Medicine 02/21/24
--- OUTSIDE RECORDS SUMMARY | 2024-12-10 14:17 | XMS_ITS | Clinical Summary ---
Author Organization [facility] Address [facility] [place] [address] Care Team Providers Care Extruder Operator Horizontal Name Role Phone Ashley Hari Deandre YAP Primary Care Provider [phone] Allergies Active Allergy Reactions Criticality Noted Date [...] Results * COLONOSCOPY (04/24/2007 2:33 PM EDT) Coding File Clerk Introduction: A patient presents for an elective [...] performed by Dunia Triana M.D. Procedure Codes: 71032: Colonoscopy with biopsy [facility] 04/24/2007 2:33 PM EDT Narrative [facility] - 04/24/2007 4:02 PM EDT Ordered by an unspecified provider. Cc Provider SCHEDULED PROCEDURES Final Resul t Performing Organization Address [facility] Co de Phone Number [facility] [address] [place] [address] * (ABNORMAL) HGB A1C (04/17/2007 12:44 PM EDT) Hemoglobin A1C 6.1(H) 4.0 - 6.0 % [facility] Blood specimen (specimen) BLOOD SPECIMEN / Unknown 04/17/2007 12:44 PM EDT Benson Andrew (Hist) Luis LABORATORY Final Result Performing Organization Address [facility] Co de Phone Number [facility] [address] [place] [address] from Last 3 Months or Most Recently Relevant to Health Maintenance Insurance MEDICARE Care Teams Extruder Operator Horizontal Relationship Specialty Start Date End Date Hari Ramirez DO PCP - General 01/11/07
--- OUTSIDE RECORDS SUMMARY | 2024-12-10 14:17 | XMS_ITS | Encounter Summary ---
Author Organization [facility] Address [address] [place] [address] Care Team Providers Care [employer] Name Role Phone Erasto Henry MD Primary Care Provider [phone] Encounter Details Date Type Department Care Team (Late st Contact Info) Description 04/16/2024 Orders Only [facility] [address] [place] [id number] Krystina Porras, OD [address] [place] [address] Social History Tobacco Use Types Packs/Day Years [...] Visit [facility] [address] [place] [address] Pedro Pablo Thomas MD [address] [facility] [address] [phone] 01/12/2025 1:45 PM EDT Office Visit [facility] [address] [place] [id number] Erasto Henry MD [address] [place] [address] documented as of this encounter Procedures Procedure Name Priority Date/Time Associated Diagnosis Comments DIABETES EYE EXAM Routine 04/16/2024 6:36 AM EDT documented in this encounter Results * Diabetes Eye Exam (04/16/2024 6:36 AM EDT) [facility] MAINTENANCE Final Result documented in this encounter Visit Diagnoses Not on filedocumented in this encounter Care Teams [employer] Relationship Specialty Start Date End Date Erasto Henry MD [address] [place] [address] PCP - General Family Medicine 02/21/24 documented as of this encounter
--- OUTSIDE RECORDS SUMMARY | 2024-12-10 14:17 | XMS_ITS | Patient Health Record ---
Author Organization [facility] in [place] Address [address] [place] [address] Care Team Providers Care Looper Fixer Name Role Phone Erasto Henry MD Primary Care Provider UnavailIshan Hernandez Unavailable [phone] Allergies Allergen (clinical drug ingredient) Drug/Non Drug Allergy documented on EMR Reaction Allergy Type Onset Date Status azithromycin Azithromycin Hives Drug Allergy A ctive Latex Latex Hives Allergy Active Results Component Value Reference Range Notes CT lung screening low-dose Reviewed date:02/26/2024 07:08:22 AM Interpretation: Performing Lab: Notes/Report: Source Facility: [place] [address] CT Scan Report Signed Patient: LISE CANALES MR#: [id number] : 1955 Acct:[id number] Age/Sex: 68 / F ADM Date: 02/19/24 Loc: CT Attending Dr: Ishan Quezada D.O. Ordering Physician: Ishan Quezada D.O. Date of Service: 02/19/24 Procedure(s): CT lung screening low-dose Accession Number(s): [id number] cc: Erasto Henry M.D. [place] [address] Patient Name: LISE DUFFT MRN: [id number] date: 1955 Sex: F Assigned Patient Location: CT Current Patient Location: ED.MAIN Accession/Order Number: [id number] Exam Date: 02/19/2024 13:15 Report Date: 02/21/2024 [...] M.D. Signed By: 02/21/2430 DD/ 6 TD/TT: Television Equipment Operator: [place] [address] CT Scan Report Signed Patient: COREY CANALES MR#: [id number] : 1955 Acct:[id number] Age/Sex: 68 / F ADM Date: 02/19/24 Loc: CT Attending Dr: Ishan Quezada D.O. Ordering Physician: Ishan Quezada D.O. Date of Service: 02/19/24 Procedure(s): CT ela g screening low-dose Accession Number(s): [id number] cc: Erasto Henry M.D. [address] [address] Patient Name: LISE Easton COVERT MRN: [id number] date: 1955 Sex: F Assigned Patient Location: CT Current Patient Location: ED.MAIN Accession/Order Number: [id number] Exam Date: 02/19/2024 13:15 Report Date: 02/21/2024 [...] mA and/or kV according to patient size and/ or use of iterative reconstruction technique. FINDINGS: LUNGS: Stable scarri ng in moderate emphysematous changes within the lungs. PLEURA: Stable calcified pleural plaque versus calcification of remote pleural hematoma. VASCULATURE: No abnormality. ROBLES: No mass or pathologic adenopathy. MEDIASTINUM: No mass or pathologic adenopathy. CARDIAC: No enlargement, pericardial thickening, or pericardial effusion. Coronary Artery calcifications: AORTA: No aneurysm o r dissection. CHEST WALL: No mass or axillary adenopathy BONES: Moderate compression fracture of T12, stable. LIMITED ABDOMEN: No suspicious findings. Limited images of the upper abdomen. OTHER: Negative. CT/CT lung screening low-dose IMPRESSION: 1. Lung-RADS 2- Dominguez gn Appearance or Behavior. Nodules with a very low likelihood of becomi ng a clinically active cancer due to size or lack of growth. Follow-up CT Chest in 1 year. 2. Stable scarring i n moderate emphysematous changes. 3. Stable T12 modera te compression fracture and moderate retropulsion of the posterior wall. Electronically authenticated by: KIRBY CASTILLO Date: 02/21/2024 06:27 Dictated By: Kirby Castillo M.D. Signed By: 02/21/24629 DD/ 6 TD/TT: Television Equipment Operator: INFLUENZA A AND B AG Reviewed date:07/07/2024 09:16:27 PM Interpretation: Performing Lab: Notes/Report: [facility] , Influenza Virus A Antigen Negative Negative for Flu A protein antigen. Infection due to Flu A cannot be ruled out. Flu A antigen in the sample may be below the detection limit of the test. Influenza Virus B Antigen Negative Negative for Flu B protein antigen. Infection due to Flu B cannot be ruled out. Flu B antigen in the sample may be below the detection limit of the test. Performing Lab: see note ML - [facility] LB SARS-CoV-2 Ag* Reviewed date:07/07/2024 09:16:27 PM Interpretation: Performing Lab: Notes/Report: [facility] , SARS-CoV-2 Ag NEGATIVE NEGATIVE This test has not been FDA cleared or approved, but has been authorized by the FDA under an Emergency Use Authorization (EUA) for use by authorized laboratories certified under CLIA that meet the requirements to perform moderate or high complexity testing. This test has been authorized only for the detection of proteins from SARS-CoV-2, not for any other viruses or pathogens. The emergency use of this test is authorized for the duration of the declaration that circumstances exist justifying the authorization of emergency use of in vitro diagnostic tests for detection and/or diagnosis of Covid-19 under section 564(b)(1) of the Act, 21 U.S.C. 360bbb-3(b)(1), unless the declaration is terminated or authorization is revoked sooner. Performing Lab: see note ML - [facility] LB Box Test Reviewed date:07/13/2024 05:11:02 PM Interpretation: Performing Lab: Notes/Report: Sputum Culture [facility] , BOX Test Sent Out Sputum Culture BOX Test Reference Lab [facility] BOX Test Date Sent 07/08/24 BOX Test Result SEE SCANNED REPORT Performing Lab: see note - [facility] LB CBC AUTO DIFF Reviewed date:07/09/2024 03:17:04 PM Interpretation: Performing Lab: Notes/Report: [facility] , White Blood Count 24.8 4.0-11.0 10 3/uL Red Blood Count 3.46 4.20-5.40 10 6/uL Hemoglobin 10.5 12.0-16.0 g/dL Hematocrit 32.4 36.0-48.0 % Mean Corpuscular Volume 93.6 81.0-99.0 fL Mean Corpuscular Hemoglobin 30.3 26.7-34.0 pg Mean Corpuscular HGB Conc 32.4 29.9-35.2 g/dL Red Cell Distribution Width 13.1 11.0-15.0 % Platelet Count 250 150-450 10 3/uL Mean Platelet Volume 9.5 9.5-13.5 fL Neutrophils Percent Auto 97.1 43.0-75.0 % Lymphocytes Percent Auto 0.4 20.5-60.0 % Monocytes Percent Auto 1.8 1.7-12.0 % Eosinophils Percent Auto 0.0 0.9-7.0 % Basophils Percent Auto 0.1 0.2-2.0 % Immature Granulocytes Pct Auto 0.6 0.0-0.5 % Neutrophils Absolute Auto 24.1 1.4-6.5 10 3/uL Lymphocytes Absolute Auto 0.1 1.2-3.8 10 3/uL Monocytes Absolute Auto 0.4 0.3-0.8 10 3/uL Eosinophils Absolute Auto 0.0 0.0-0.7 10 3/uL Basophils Absolute Auto 0.0 0.0-0.1 10 3/uL Immature Granulocytes Abs Auto 0.16 0.00-0.03 10 3/uL Performing Lab: see note ML - [facility] LB MAGNESIUM Reviewed date:07/09/2024 03:17:04 PM Interpretation: Performing Lab: Notes/Report: [facility] , Magnesium 2.0 1.8-2.4 mg/dL Performing Lab: see note ML - [facility] LB PROF 14(COMP METB) Reviewed date:07/09/2024 03:17:04 PM Interpretation: Performing Lab: Notes/Report: [facility] , Sodium 137 136-145 mmol/L Potassium 4.1 3.5-5.1 mmol/L Chloride 103 98-107 mmol/L Carbon Dioxide 23.4 21.0-32.0 mmol/L Anion Gap 14.7 Glucose 250 74-106 mg/dL Blood Urea Nitrogen 30.0 7.0-18.0 mg/dL Creatinine 1.49 0.55-1.02 mg/dL Estimated GFR ( Mile 42 >=60 mL/min/1.73m 2 Estimated GFR (Non- Hollie 35 >=60 mL/min/1.73m 2 BUN Creatinine Ratio 20.1 Calcium 8.5 8.5-10.1 mg/dL Bilirubin Total 0.3 0.2-1.0 mg/dL Aspartate Amino Transferase 15 15-37 U/L Alanine Aminotransferase 20 14-59 U/L Alkaline Phosphatase 60 46-116 U/L Total Protein 5.8 6.4-8.2 g/dL Albumin Level 2.6 3.4-5.0 g/dL Globulin 3.2 Albumin Globulin Ratio 0.8 Performing Lab: see note - [facility] UA RANDOM W or MICROSCOPIC Reviewed date:07/09/2024 03:17:04 PM Interpretation: Performing Lab: Notes/Report: [facility] , Color Urine LT. YELLOW YELLOW Clarity Urine CLEAR CLEAR Specific [place] Urine 1.020 1.005-1.025 pH Urine 6.0 5.0-9.0 Protein Urine TRACE NEG/TRACE mg/dL Glucose Urine UA 250 NEGATIVE mg/dL Bilirubin Urine NEGATIVE NEGATIVE Ketones Urine NEGATIVE NEGATIVE mg/dL Blood Urine SMALL NEGATIVE Nitrite Urine NEGATIVE NEGATIVE Urobilinogen Urine 0.2 0.2-1.0 EU/dL Leukocyte Esterase Urine NEGATIVE NEGATIVE WBC Urine 0-2 NONE SEEN #/HPF RBC Urine 0-2 0-2 #/HPF Bacteria Urine TRACE NONE SEEN #/HPF Mucus Urine TRACE NONE SEEN Squamous Epithelial Cell Urine FEW NONE/RARE #/LPF Crystals Seen? None Seen None Seen #/HPF Cast Seen? NONE SEEN NONE SEEN #/LPF Urine Culture Indicated ALREADY ORDERED Performing Lab: see note ML - [facility] LB Box Test Reviewed date:07/13/2024 05:11:02 PM Interpretation: Performing Lab: Notes/Report: URINE CULTURE [facility] , BOX Test Sent Out URINE CULTURE BOX Test Reference Lab [facility] BOX Test Date Sent 07/09/24 BOX Test Result SEE SCANNED REPORT Performing Lab: see note [facility] CBC AUTO DIFF Reviewed date:07/13/2024 05:11:02 PM Interpretation: Performing Lab: Notes/Report: [facility] , White Blood Count 12.9 4.0-11.0 10 3/uL Red Blood Count 3.55 4.20-5.40 10 6/uL Hemoglobin 10.7 12.0-16.0 g/dL Hematocrit 33.5 36.0-48.0 % Mean Corpuscular Volume 94.4 81.0-99.0 fL Mean Corpuscular Hemoglobin 30.1 26.7-34.0 pg Mean Corpuscular HGB Conc 31.9 29.9-35.2 g/dL Red Cell Distribution Width 13.4 11.0-15.0 % Platelet Count 262 150-450 10 3/uL Mean Platelet Volume 9.2 9.5-13.5 fL Neutrophils Percent Auto 95.7 43.0-75.0 % Lymphocytes Percent Auto 0.8 20.5-60.0 % Monocytes Percent Auto 2.7 1.7-12.0 % Eosinophils Percent Auto 0.0 0.9-7.0 % Basophils Percent Auto 0.1 0.2-2.0 % Immature Granulocytes Pct Auto 0.7 0.0-0.5 % Neutrophils Absolute Auto 12.3 1.4-6.5 10 3/uL Lymphocytes Absolute Auto 0.1 1.2-3.8 10 3/uL Monocytes Absolute Auto 0.4 0.3-0.8 10 3/uL Eosinophils Absolute Auto 0.0 0.0-0.7 10 3/uL Basophils Absolute Auto 0.0 0.0-0.1 10 3/uL Immature Granulocytes Abs Auto 0.09 0.00-0.03 10 3/uL Performing Lab: see note ML - [facility] LB PROF 14(COMP METB) Reviewed date:07/13/2024 05:11:02 PM Interpretation: Performing Lab: Notes/Report: [facility] , Sodium 139 136-145 mmol/L Potassium 5.1 3.5-5.1 mmol/L Chloride 105 98-107 mmol/L Carbon Dioxide 25.9 21.0-32.0 mmol/L Anion Gap 13.2 Glucose 137 74-106 mg/dL Blood Urea Nitrogen 38.0 7.0-18.0 mg/dL Creatinine 1.66 0.55-1.02 mg/dL Estimated GFR ( Mile 37 >=60 mL/min/1.73m 2 Estimated GFR (Non- Hollie 31 >=60 mL/min/1.73m 2 BUN Creatinine Ratio 22.9 Calcium 8.8 8.5-10.1 mg/dL Bilirubin Total 0.4 0.2-1.0 mg/dL Aspartate Amino Transferase 14 15-37 U/L Alanine Aminotransferase 17 14-59 U/L Alkaline Phosphatase 56 46-116 U/L Total Protein 5.8 6.4-8.2 g/dL Albumin Level 2.7 3.4-5.0 g/dL Globulin 3.1 Albumin Globulin Ratio 0.9 Performing Lab: see note ML - [facility] LB XR chest 2V Reviewed date:07/13/2024 05:11:02 PM Interpretation: Performing Lab: Notes/Report: Source Facility: [place] [address] XRay Report Signed Patient: OMEGATLISE MR#: [id number] : 1955 Acct:[id number] Age/Sex: 69 / F ADM Date: 07/07/24 Loc: [place] 219-[address]: Anabel Isbell M.D. Ordering Physician: Anabel Isbell M.D. Date of Service: 07/10/24 Procedure(s): XR chest 2V Accession Number(s): [id number] cc: Anabel Isbell M.D.; Erasto Henry M.D. [place] [address] Patient Name: LISE Easton COVERT MRN: [id number] date: 1955 Sex: F Assigned Patient Location: [place] Current Patient Location: [place] Accession/Order Number: [id number] Exam Date: 07/10/2024 09:50 Report Date: 07/10/2024 10:27 At the request of: ANABEL ISBELL Procedure: XR chest 2V EXAMINATION: XR chest 2V HISTORY: pneumonia COMPARISON: 02/18/2024, 07/07/2024 TECHNIQUE: Frontal FINDINGS: LUNGS: Stable hyperinflation. Scattered suture lines in both upper lung zones. Improvement in right basilar infiltrate VASCULATURE: No increased pulmonary vasculature. PLEURA: No pneumothorax, effusion, or pleural thickening. CARDIAC: No cardiomegaly or cardiac silhouette abnormality. MEDIASTINUM: No visible mass or adenopathy. BONES: No fracture or visible bone lesion. OTHER: Negative. XR/XR chest 2V IMPRESSION: Improvement in right basilar infiltrate Electronically authenticated by: ASAEL MALDONADO Date: 07/10/2024 10:27 Dictated By: Asael Maldonado M.D. Signed By: 07/10/24 1030 DD/ 1027 TD/TT: Television Equipment Operator: [place] [address] XRay Report Signed Patient: COVERTCOREY MR#: [id number] : 1955 Acct:[id number] Age/Sex: 69 / F ADM Date: 07/07/24 Loc: [place] 219-[address]: Rony Isbell M.D. Ordering Physician: Anabel Isbell M.D. Date of Service: 07/10/24 Procedure(s): XR [facility] st 2V Accession Number(s): [id number] cc: Anabel Isbell M.D. ; Erasto Henry M.D. [place] [id number] Patient Name: LISE Easton COVERT MRN: [id number] date: 1955 Sex: F Assigned Patient Location: [place] Current Patient Location: [place] Accession/Order Number: [id number] Exam Date: 07/10/2024 09:50 Report Date: 07/10/2024 10:27 At the request of: ANABEL ISBELL Procedure: XR chest 2V EXAMINATION: XR ches t 2V HISTORY: pneumonia COMPARISON: 4, 07/07/2024 TECHNIQUE: Frontal FINDINGS: LUNGS: Stable hyperinflation. Scattered suture lines in both upper lung zones. Improvement in right basilar infiltrate VASCULATURE: No increased pulmonary vasculature. PLEURA: No pneumothorax, effusion, or pleural thickening. CARDIAC: No cardiomegaly or cardiac silhouette abnormality. MEDIASTINUM: No visible mass or adenopathy. BONES: No fracture o r visible bone lesion. OTHER: Negative. XR/XR chest 2V IMPRESSION: Improvement in right basilar infiltrate Electronically authenticated by: ASAEL MALDONADO Date: 07/10/2024 10:27 Dictated By: Asael Maldonado M.D. Signed By: 07/10/24 1030 DD/ 1027 TD/TT: Television Equipment Operator: PROF Ramírez(COMP METB) Reviewed date:07/13/2024 05:11:02 PM Interpretation: Performing Lab: Notes/Report: [facility] , Sodium 139 136-145 mmol/L Potassium 4.8 3.5-5.1 mmol/L Chloride 105 98-107 mmol/L Carbon Dioxide 26.8 21.0-32.0 mmol/L Anion Gap 12.0 Glucose 162 74-106 mg/dL Blood Urea Nitrogen 36.0 7.0-18.0 mg/dL Creatinine 1.68 0.55-1.02 mg/dL Estimated GFR ( Mile 37 >=60 mL/min/1.73m 2 Estimated GFR (Non- Hollie 30 >=60 mL/min/1.73m 2 BUN Creatinine Ratio 21.4 Calcium 8.6 8.5-10.1 mg/dL Bilirubin Total 0.3 0.2-1.0 mg/dL Aspartate Amino Transferase 14 15-37 U/L Alanine Aminotransferase 18 14-59 U/L Alkaline Phosphatase 61 46-116 U/L Total Protein 5.6 6.4-8.2 g/dL Albumin Level 2.5 3.4-5.0 g/dL Globulin 3.1 Albumin Globulin Ratio 0.8 Performing Lab: see note ML - [facility] LB CBC AUTO DIFF Reviewed date:07/13/2024 05:11:02 PM Interpretation: Performing Lab: Notes/Report: [facility] , White Blood Count 19.3 4.0-11.0 10 3/uL Red Blood Count 3.45 4.20-5.40 10 6/uL Hemoglobin 10.4 12.0-16.0 g/dL Hematocrit 32.4 36.0-48.0 % Mean Corpuscular Volume 93.9 81.0-99.0 fL Mean Corpuscular Hemoglobin 30.1 26.7-34.0 pg Mean Corpuscular HGB Conc 32.1 29.9-35.2 g/dL Red Cell Distribution Width 13.4 11.0-15.0 % Platelet Count 259 150-450 10 3/uL Mean Platelet Volume 9.3 9.5-13.5 fL Neutrophils Percent Auto 97.6 43.0-75.0 % Lymphocytes Percent Auto 0.6 20.5-60.0 % Monocytes Percent Auto 1.0 1.7-12.0 % Eosinophils Percent Auto 0.0 0.9-7.0 % Basophils Percent Auto 0.1 0.2-2.0 % Immature Granulocytes Pct Auto 0.7 0.0-0.5 % Neutrophils Absolute Auto 18.8 1.4-6.5 10 3/uL Lymphocytes Absolute Auto 0.1 1.2-3.8 10 3/uL Monocytes Absolute Auto 0.2 0.3-0.8 10 3/uL Eosinophils Absolute Auto 0.0 0.0-0.7 10 3/uL Basophils Absolute Auto 0.0 0.0-0.1 10 3/uL Immature Granulocytes Abs Auto 0.14 0.00-0.03 10 3/uL Performing Lab: see note ML - [facility] LB PROF 14(COMP METB) Reviewed date:07/09/2024 03:17:04 PM Interpretation: Performing Lab: Notes/Report: [facility] , Sodium 137 136-145 mmol/L Potassium 4.4 3.5-5.1 mmol/L Chloride 101 98-107 mmol/L Carbon Dioxide 26.8 21.0-32.0 mmol/L Anion Gap 13.6 Glucose 303 74-106 mg/dL Blood Urea Nitrogen 19.0 7.0-18.0 mg/dL Creatinine 1.62 0.55-1.02 mg/dL Estimated GFR ( Mile 38 >=60 mL/min/1.73m 2 Estimated GFR (Non- Hollie 32 >=60 mL/min/1.73m 2 BUN Creatinine Ratio 11.7 Calcium 8.5 8.5-10.1 mg/dL Bilirubin Total 0.4 0.2-1.0 mg/dL Aspartate Amino Transferase 15 15-37 U/L Alanine Aminotransferase 19 14-59 U/L Alkaline Phosphatase 68 46-116 U/L Total Protein 5.9 6.4-8.2 g/dL Albumin Level 2.5 3.4-5.0 g/dL Globulin 3.4 Albumin Globulin Ratio 0.7 Performing Lab: see note ML - [facility] LB MAGNESIUM Reviewed date:07/09/2024 03:17:04 PM Interpretation: Performing Lab: Notes/Report: [facility] , Magnesium 2.2 1.8-2.4 mg/dL Performing Lab: see note - [facility] LB CBC AUTO DIFF Reviewed date:07/09/2024 03:17:04 PM Interpretation: Performing Lab: Notes/Report: [facility] , White Blood Count 14.3 4.0-11.0 10 3/uL Red Blood Count 4.06 4.20-5.40 10 6/uL Hemoglobin 12.2 12.0-16.0 g/dL Hematocrit 38.6 36.0-48.0 % Mean Corpuscular Volume 95.1 81.0-99.0 fL Mean Corpuscular Hemoglobin 30.0 26.7-34.0 pg Mean Corpuscular HGB Conc 31.6 29.9-35.2 g/dL Red Cell Distribution Width 13.0 11.0-15.0 % Platelet Count 235 150-450 10 3/uL Mean Platelet Volume 9.2 9.5-13.5 fL Neutrophils Percent Auto 95.5 43.0-75.0 % Lymphocytes Percent Auto 2.5 20.5-60.0 % Monocytes Percent Auto 0.7 1.7-12.0 % Eosinophils Percent Auto 0.0 0.9-7.0 % Basophils Percent Auto 0.1 0.2-2.0 % Immature Granulocytes Pct Auto 1.2 0.0-0.5 % Neutrophils Absolute Auto 13.7 1.4-6.5 10 3/uL Lymphocytes Absolute Auto 0.4 1.2-3.8 10 3/uL Monocytes Absolute Auto 0.1 0.3-0.8 10 3/uL Eosinophils Absolute Auto 0.0 0.0-0.7 10 3/uL Basophils Absolute Auto 0.0 0.0-0.1 10 3/uL Immature Granulocytes Abs Auto 0.17 0.00-0.03 10 3/uL Performing Lab: see note ML - [facility] LB Reason For Referral No Information Medications Medication SIG (Take, Route, Frequency, Duration) Notes Start Date End Date Status oxyCODONE-Acetaminop hen 5-325 MG Oral for 7 Days Active Acetaminophen-Codein e 300-30 MG Oral for 5 Days Active Stiolto Respimat 2.5-2.5 MCG/ACT 2 puffs Inhalation QD for 30 days Please instruct patient on appropriate use of Stiolto Respimat 08/06/2024 Active Pregabalin 100 MG 1 capsule Orally Once a day Active Albuterol Sulfate HFA 108 (90 Base) MCG/ACT 2 puffs as needed for SOB Inhalation every 4 hrs for 30 days Active guaiFENesin ER 600 MG TAKE 2 TABLETS BY MOUTH TWICE DAILY for 30 Active Immunizations Vaccine Route Administration Date Status Comme nts Pneumococcal (Prevnar 13) Unknown 05/05/2022 Administer ed Pneumococcal (Prevnar 20) Unknown 05/05/2022 Administer ed SARS-COV-2 (COVID 19 Moderna Bivalent Booster 0.5mL) Unknown 05/05/2022 Administered Social History Tobacco Use: Social History Observation Description Date Details (start date - stop date) Former Smoker NA - NA Tobacco Control (Standard) Question Answer Notes Tobacco use: Former smoker Additional Findings: Tobacco non-user Ex-very he gibran cigarette smoker (40+/day) Problems Problem Type SNOMED Code ICD Code Onset Dates Problem Status W/U Status Risk Notes Problem Hyperglycemia due to type 2 diabetes mellitus (748493117544547) Type 2 diabetes mellitus with hyperglycemia (E11.65) Active confirmed Problem Critical illness myopathy (976467958) 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) Active confirmed Problem 787623850 Chronic obstructive pulmonary disease with (acute) exacerbation (J44.1) Active confirmed Problem Chronic respiratory failure (84450591) Chronic respiratory failure with hypoxia (J96.11) Active confirmed Problem 225950167440428 intermediate card tender (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) use of systemic steroids (Z79.52) Active confirmed Problem Hyperlipidaemia (02884320) Hyperlipemia (E78.5) Active confirmed Problem COPD - Chronic obstructive pulmonary disease (11801459) COPD (chronic obstructive pulmonary disease) (J44.9) Active confirmed Problem Coronary artery disease (42886988) CAD (coronary artery disease) (I25.10) Active confirmed Problem Coronary artery disease (01200733) Coronary artery disease (I25.10) Active confirmed Problem Depression (018574526) Depression (F32.9) Active confirmed Problem Essential hypertension (06861009) Benign essential HTN (I10) Active confirmed Problem Acid reflux (677309798) Acid reflux (K21.9) Active confirmed Problem Acute exacerbation of chronic obstructive airways disease (789623823) COPD exacerbation (J44.1) Active confirmed Problem Leukocytosis (015048336) Leukocytosis (D72.829) Active confirmed Problem Ex-tobacco user (finding) (891045544) History of tobacco abuse (Z87.891) Active confirmed 80 pack-yea r history Problem Chronic obstructive pulmonary disease (26109064) Advanced COPD (J44.9) Active confirmed Problem Gastroesophageal reflux disease (912270318) Gastroesophageal reflux disease (K21.9) Active confirmed Problem Essential hypertension (19036855) Essential Hypertension (I10) Active confirmed Problem Essential hypertension (76224225) BP (high blood pressure) (I10) Active confirmed Problem Bullous emphysema (726622456) Bullous emphysema (J43.9) Active confirmed Problem Chronic kidney disease stage 3B (disorder) (476802168) Chronic kidney disease, stage 3b (N18.32) Active confirmed Problem Chronic kidney disease stage 3A (disorder) (086494247) Stage 3a chronic kidney disease (CKD) (N18.31) Active confirmed Vital Signs Heart Rate 77 /min 11/04/2024 Temperature 97.1 degrees Fahrenheit 11/04/2024 Respiratory Rate 18 /min 11/04/2024 Blood pressure diastolic 92 mm Hg 11/04/2024 Oximetry 91 % 11/04/2024 Height 65 in 11/04/2024 Blood pressure systolic 164 mm Hg 11/04/2024 Weight 98.0 lbs 11/04/2024 BMI 16.31 kg/m2 11/04/2024 Encounters Encounter Location Date Provider Diagnosis [facility] [address] [place] [address] 12/18/2023 [facility] [place] [address] [place] [address] 12/19/2023 [facility] [place] [address] [place] [address] 02/26/2024 [facility] [place] [address] [place] [address] 08/06/2024 [facility] COPD (chronic obstructive pulmonary disease) J44.9 [facility] [address] [place] [address] 01/29/2024 Ishan Quezada Chronic respiratory failure with hypoxia J96.11 ; 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 ; Essential Hypertension I10 ; History of tobacco abuse Z87.891 and Underweight R63.6 [facility] [address] [place] [address] 08/05/2024 Ishan Quezada Chronic respiratory failure with hypoxia J96.11 ; 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 ; History of tobacco abuse Z87.891 ; Underweight R63.6 ; Encounter for screening for malignant neoplasm of respiratory organs Z12.2 and intermediate card tender (current) use of systemic steroids Z79.52 [facility] [address] [place] [address] 11/04/2024 Ishan Quezada Chronic respiratory failure with hypoxia J96.11 ; 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 ; History of tobacco abuse Z87.891 ; Underweight R63.6 and intermediate card tender (current) use of systemic steroids Z79.52 Assessments Encounter Date Diagnosis (ICD Code) Assessment Notes Treatment Notes Treatment Clinical Notes Section Notes 01/29/2024 Chronic respiratory failure with hypoxia (ICD-10 - J96.11) Has Inogen. Continues to use O2 @ HS which makes her feel better. Not having to use during the day as SpO2 has been maintained @ 95% or greater during her spot checks. 08/05/2024 Chronic respiratory failure with hypoxia (ICD-10 - J96.11) Has Inogen. Mainly uses O2 @ HS, may benefit from using it with ambulation/activity for the time being, especially that her SpO2 was 88% on RA upon arrival. 11/04/2024 Chronic respiratory failure with hypoxia (ICD-10 - J96.11) Has Inogen. She did not bring it in with her today. States SpO2 has been in the 90's at home recently. 08/06/2024 COPD (chronic obstructive pulmonary disease) (ICD-10 - J44.9) 11/04/2024 Bullous emphysema (ICD-10 - J43.9) Bevespi [...] 40 years, quit 02/2022. LDCT due 02/2025. 08/05/2024 Bullous emphysema (ICD-10 - J43.9) Worsening [...] 02/21/2024 looked well. Next LDCT due 02/2025. 01/29/2024 Bullous emphysema (ICD-10 - J43.9) Breathing has improved. Still is tight but better than last visit, concerned patient is downplaying symptoms, but she continues to maintain she feels well and denies any dyspnea. Will continue with albuterol PRN and guiafenesin daily at this time. F/U 6 months. 01/29/2024 Essential Hypertension (ICD-10 - I10) SBP elevated today - 180. Patient to F/U with PCP. 01/29/2024 History of tobacco abuse (ICD-10 - Z87.891) 80 pack-year history LDCT is due February 2024. Printed order for patient and personally gave her the number to centralized scheduling. 08/05/2024 Underweight (ICD-10 - R63.6) Remains underweight. Continue healthy caloric intake. 11/04/2024 Underweight (ICD-10 - R63.6) Remains underweight. Continue healthy caloric intake. 11/04/2024 half-way (current) use of systemic steroids (ICD-10 - Z79.52) She is on chronic prednisone for temporal arteritis. 08/05/2024 Encounter for screening for malignant neoplasm [...] smoking cessation/continued tobacco abstinence. LDCT due 02/2025. 01/29/2024 Underweight (ICD-10 - R63.6) Weight continues to be low - BMI 17.9. Healthy calorie intake recommended. 08/05/2024 half-way (current) use of systemic steroids (ICD-10 - Z79.52) She is on chronic prednisone for temporal arteritis. 08/05/2024 Other Plan Of Treatment Next Appt Details Provider Name:Ishan Quezada, 05/06/2025 02:00:00 PM, [address] [place], [address], Insurance Providers Payer Name Payer Address Payer Phone Subscriber Number Group Number Insured Name Patient Relationship to Insured Coverage Start Date Coverage End Date [employer] [address] [address] [place] [phone] [id number] Covert, Lise Self - patient is the insured MEDICARE [place] [address] [address] [place] [phone] [id number] Covert, Lise Self - patient is the insured 3 Medical (General) History Medical History History ICD Code 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 Chronic respiratory failure with hypoxia J96.11 Essential Hypertension I10 Chronic depression F32.A Collagenous colitis K52.831 Coronary artery disease I25.10 Dyslipidemia E78.5 Gastroesophageal reflux disease K21.9 Hydropneumothorax J94.8 Overactive bladder N32.81 Polymyalgia rheumatica M35.3 Primary Raynaud's phenomenon I73.00 Cachexia R64 Thoracic outlet syndrome G54.0 Diabetes mellitus type 2, controlled E11 .9 [place]-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 07/07/2024 COPD Exacerbation-[facility] 06/26/2024 SOB-[facility] 12/18/2023 Acute Respiratory Failure-[facility] 01/29/2023 COPD exacerbation 07/2018 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
--- OUTSIDE RECORDS SUMMARY | 2024-12-10 14:17 | XMS_ITS | Encounter Summary ---
Author Organization [facility] Address [address] [place] [address] Care Team Providers Care Edger Liner Name Role Phone Erasto Henry MD Primary Care Provider [phone] Reason for Visit * Reason Onset Date Comments Med Refill 11/28/2024 Encounter Details Date Type Department Care Team ([facility] Contact Info) Description 11/28/2024 Refill [facility] [address] [place] [address] Erasto Henry MD [address] [place] [address] Degeneration of intervertebral disc of lumbar region [...] Upcoming Encounters Date Type Department Care Team ([facility] Contact Info) Description 12/12/2024 1:15 PM EDT Procedure Visit [facility] [address] [facility] [address] [place] [phone] Pedro Pablo Thomas MD [address] [address] 01/12/2025 1:45 PM EDT Office Visit [facility] [address] [place] [phone] Erasto Henry MD [address] [facility] [place] [address] documented as of this encounter Visit Diagnoses Diagnosis Degeneration of intervertebral disc of lumbar region with discogenic back pain and lower extremity pain documented in this encounter Care Teams Edger Liner Relationship Specialty Start Date End Date Erasto Henry MD [address] [place] [phone] PCP - General Family Medicine 02/21/24 documented as of this encounter
--- OUTSIDE RECORDS SUMMARY | 2024-12-10 14:17 | XMS_ITS | Encounter Summary ---
Author Organization [facility] Address [address] [facility] [place] [address] Care Team Providers Care Farm Operations Manager Name Role Phone Erasto Henry MD Primary Care Provider Erasto Henry MD Primary Care Provider Encounter Details Date Type Department Care Team (Late Contact Info) Description 08/20/2023 Orders Only [facility] [address] [place] [address] Erasto Henry MD [address] [place] [address] Social History Tobacco Use Types Packs/Day Years [...] Upcoming Encounters Date Type Department Care Team ([facility] Contact Info) Description 12/12/2024 1:15 PM EDT Procedure Visit [facility] [address] [facility] [address] [place] [address] Pedro Pablo Thomas MD [address] [place] [address] 01/12/2025 1:45 PM EDT Office Visit [facility] [address] [place] [phone] Erasto Henry MD [address] [place] [address] documented as of this encounter Visit Diagnoses Not on filedocumented in this encounter Care Teams Farm Operations Manager Relationship Specialty Start Date End Date Erasto Henry MD PCP - General Family Medicine 07/09/22 02/20/24 Erasto Henry MD [address] [place] [address] PCP - General Family Medicine 02/21/24 documented as of this encounter
--- OUTSIDE RECORDS SUMMARY | 2024-12-10 14:17 | XMS_ITS | Encounter Summary ---
Author Organization [facility] Address [address] [place] [address] Care Team Providers Care Tandem Mill Sticker Name Role Phone Erasto Henry MD Primary Care Provider [phone] Encounter Details Date Type Department Care Team (Late Contact Info) Description 07/07/2024 Orders Only [facility] [address] [place] [phone] Erasto Henry MD [address] [place] [phone] Social History Tobacco Use Types Packs/Day Years [...] [address] [place] [address] Pedro Pablo Thomas MD [address] [facility] [address] [place], [place] [phone] 01/12/2025 1:45 PM EDT Office Visit [facility] [address] [place] [address] Erasto Henry MD [address] [place] [address] documented as of this encounter [...] on filedocumented in this encounter Care Teams Tandem Mill Sticker Relationship Specialty Start Date End Date Erasto Henry MD [address] [place] [address] PCP - General Family Medicine 02/21/24 documented as of this encounter
--- NOTE | 2024-12-10 14:52 | ECG_ITS ---
[facility] Test Date: 2024-12-10 Pat Name: SANDRA CANALES Department: Room: - Gender: Female Lightning Rod Erector: : 1955 Requested By: 1030 Order Number: [id number] Reading MD: JER VANG M.D. Measurements Intervals [place] Rate: 119 P: 82 MT: 188 QRS: 94 QRSD: 88 T: 155 QT: 298 QTc: 369 Interpretive Statements 1120 Sinus tachycardia [address] depression [address] & Twave abnormality 7102 Moderate right axis deviation 9150 abnormal ECG Compared to ECG 11/10/2024 12:57:55 Right-axis deviation now present Electronically Signed On 12-10-2024 19:23:49 EDT by JER VANG M.D.
--- NOTE | 2024-12-10 14:54 | XR_ITS ---
[address] [address] Patient Name: SANDRA Easton COVERT MRN: [id number] date: 1955 Sex: F Assigned Patient Location: ER Current Patient Location: ER Accession/Order Number: [id number] Exam Date: 12/10/2024 15:58 Report Date: 12/10/2024 16:00 At the request of: HERMINIO MORALES MD Procedure: XR chest 1V Plain film chest Single view HISTORY: Acute weakness. Fever. COMPARISON: 11/10/2024 FINDINGS: SUPPORT DEVICES: None POSTSURGICAL CHANGES: None HEART: Within normal limits PULMONARY ROBLES: Within normal limits MEDIASTINUM: Unremarkable LUNGS AND PLEURA: Moderate right basilar groundglass infiltrate/aspiration. No large pleural effusion. No pneumothorax. Apical pleural-parenchymal scarring BONY STRUCTURES: Intact ADDITIONAL FINDINGS None XR/XR chest 1V IMPRESSION: Developing moderate right basilar groundglass infiltrate/aspiration. Impression dictated by: Enmanuel Mar M.D. 12/10/2024 4:00 PM Dictation Location: [employer] Electronically authenticated by: [id number] Y Date: 12/10/2024 16:00
--- NOTE | 2024-12-10 14:57 | ED_ITS ---
HPI HPI - General Adult General Chief complaint: Weakness Stated complaint: WEAKNESS Time Seen by Provider: 12/10/24 14:36 Source: family Mode of arrival: Wheelchair History of Present Illness HPI narrative: 69-year-old female presents for fever and weakness. Her sister gives most of the history and this started today. The patient has a complaint of left leg pain but this is an ongoing issue which has been worked up and she is on medication for it including Lyrica. She does not complain of chest pain or abdominal pain or shortness of breath or cough. Related Data Home Medications ?Medication ?Instructions ?Recorded ?Confirmed pregabalin 100 mg capsule (Lyrica) 100 mg PO TID 03/0612/10/24 albuterol sulfate 90 mcg/actuation 2 puff inhalation Q 4H PRN 12/18/23 12/10/24 aerosol inhaler shortness of breath or wheez ing tiotropium 2.5 mcg-olodaterol 2.5 2 puff inhalation [place] CORA 11/10/24 12/10/24 mcg/actuation mist for inhalation (Stiolto Respimat) gabapentin 300 mg capsule mg 12/10/24 guaifenesin 600 mg tablet, mg PO 12/10/24 extended release 12 hr Previous Rx's ?Medication ?Instructions ?Recorded oxycodone-acetaminophen 5 mg-325 1 tab PO Q6H PRN pain 5 days #20 09/26/24 mg tablet (Percocet) tabs Allergies Allergy/AdvReac Type Severity Reaction Status Date / Time azithromycin (From Zithromax Allergy Severe Unknown Verified 12/10/24 14:33 Z-Leonardo) Latex, Natural Rubber Allergy Severe Unknown Verified 12/10/24 14:33 Opioid HPI Opioid Management Most Recent Opioid Data: Last Pain Scale 10 Today, 15:03 Last Pain Intensity 0 03/06/23, 15:53 Last ORT Total Score 0 07/07/24, 15:45 Last ORT Risk Category Low Risk 07/07/24, 15:45 Review of Systems ROS Narrative A ten point review of systems is negative except as noted above. [facility] History Right lower lobe pneumonia ?J18.9 - Pneumonia, unspecified organism (ICD-10) Acute pyelonephritis ?N10 - Acute pyelonephritis (ICD-10) Sepsis ?A41.9 - Sepsis, unspecified organism (ICD-10) Immunosuppressed status ?D84.9 - Immunodeficiency, unspecified (ICD-10) Chronic steroid use Temporal arteritis ?M31.6 - Other giant cell arteritis (ICD-10) CKD stage 3b, GFR 30-44 ml/min ?N18.32 - Chronic kidney disease, stage 3b (ICD-10) Chronic respiratory failure with hypoxia ?J96.11 - Chronic respiratory failure with hypoxia (ICD-10) History of tobacco abuse ?Z87.891 - Personal history of nicotine dependence (ICD-10) CAD (coronary artery disease) ?I25.10 - Atherosclerotic heart disease of [place] coronary artery without angina pectoris (ICD-10) Essential hypertension ?I10 - Essential (primary) hypertension (ICD-10) Type 2 diabetes mellitus with hyperglycemia ?E11.65 - Type 2 diabetes mellitus with hyperglycemia (ICD-10) Polymyalgia rheumatica ?M35.3 - Polymyalgia rheumatica (ICD-10) Non-ST elevated myocardial infarction (non-STEMI) ?I21.4 - Non-ST elevation (NSTEMI) myocardial infarction (ICD-10) Hyperlipidemia ?E78.5 - Hyperlipidemia, unspecified (ICD-10) Hyperglycemia, drug-induced ?R73.9 - Hyperglycemia, unspecified (ICD-10) ?T50.905A - Adverse effect of unspecified drugs, medicaments and biological substances, initial encounter (ICD-10) COPD (chronic obstructive pulmonary disease) ?J44.9 - Chronic obstructive pulmonary disease, unspecified (ICD-10) Depression ?F32.A - Depression, unspecified (ICD-10) Acid reflux ?K21.9 - Gastro-esophageal reflux disease without esophagitis (ICD-10) Nerve pain ?M79.2 - Neuralgia and neuritis, unspecified (ICD-10) Back pain ?M54.9 - Dorsalgia, unspecified (ICD-10) Thoracotomy scar of right chest ?L90.5 - Scar conditions and fibrosis of skin (ICD-10) History of oxygen administration ?Z99.81 - Dependence on supplemental oxygen (ICD-10) UTI (urinary tract infection), bacterial ?N39.0 - Urinary tract infection, site not specified (ICD-10) ?A49.9 - Bacterial infection, unspecified (ICD-10) Urethral stenosis Surgical History Status post bilateral cataract extraction ?Z98.41 - Cataract extraction status, right eye (ICD-10) ?Z98.42 - Cataract extraction status, left eye (ICD-10) 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 [part of] (ICD-10) Stented coronary artery ?Z95.5 - Presence of coronary angioplasty implant and graft (ICD-10) Family History Mother Family history of COPD (chronic obstructive pulmonary disease) Brother Family history of COPD (chronic obstructive pulmonary disease) Father Family history of COPD (chronic obstructive pulmonary disease) Family history of stroke Social History Within the past year, how often did you have a drink containing alcohol: never Within the past year, how many standard drinks containing alcohol did you have on a typical day: 1 or 2 Within the past year, how often did you have six or more drinks on one occasion: never Total score: 0 Score interpretation: A score less than 3 is consistent with normal alcohol consumption. Smoking status: Former smoker Non-prescribed substance use: denies use Previous occupational history: disabled Highest level of school completed/degree received: Associate degree: academic program Are you now , , , , never or living with a partner: Little interest or pleasure in doing things: not at all Feeling down, depressed, or hopeless: not at all Feel stressed/tense/nervous/anxious/difficulty sleeping: only a little Do you think of yourself as: straight/heterosexual Gender Identity: female Exam Narrative Exam Narrative: Nurses note and vital signs reviewed and patient is not hypoxic. General: The patient appears well and in no apparent distress. Patient is resting comfortably on cart. Her eyes are closed but she opens them when spoken to and she converses. Skin: Warm, dry, no pallor noted. There is no rash noted. Head: Normocephalic, atraumatic Eye: Normal conjunctiva, no drainage Ears, Nose, Mouth, and Throat: oral mucosa is mildly dry. Nares patent. Cardiovascular: Regular Rate and Rhythm Respiratory: Patient is in no distress, no accessory muscle use, lungs are clear to auscultation, no wheezing, rales or rhonchi Back: non-tender GI: Soft and nontender Musculoskeletal: The patient has no evidence of calf tenderness, no pitting edema, symmetrical pulses noted bilaterally Neurological: A&O, normal speech Psychiatric: Cooperative Constitutional Vital Signs, click to edit/add: Last Vital Signs Temp 102.2 F H 12/10/24 14:37 Pulse 118 H 12/10/24 15:20 Resp 26 H 12/10/24 15:20 BP 190/98 H 12/10/24 14:37 Pulse Ox 92 L 12/10/24 15:10 O2 Del Method Room Air 12/10/24 14:37 Course Vital Signs Vital signs: Vital Signs Pulse Rate 121 H 12/10/24 14:29 Respiratory Rate 27 H 12/10/24 14:29 Temperature 102.2 F H 12/10/24 14:37 Pulse Rate 118 H 12/10/24 15:20 Respiratory Rate 26 H 12/10/24 15:20 Blood Pressure 190/98 H 12/10/24 14:37 Pulse Oximetry 92 L 12/10/24 15:10 Oxygen Delivery Method Room Air 12/10/24 14:37 Medical Decision Making MDM Narrative Medical decision making narrative: The patient has right lower lobe pneumonia with mild hypoxemia. She is placed on nasal cannula oxygen. Blood cultures were obtained and then she was given IV antibiotic, Levaquin, due to allergy. She was also noted to have a UTI. She is being admitted. Treatment diagnosis and disposition were discussed with the patient. Differential Diagnosis Differential Diagnosis: Pneumonia, viral illness, UTI Lab Data Lab results reviewed: Yes I reviewed the patient's lab results Labs: Lab Results 12/10/24 12/10/24 12/10/24 Range/Units 15:00 15:27 15:30 WBC 16.8 H (4.0-11.0) 10^3/uL RBC 4.52 (4.20-5.40) 10^6/uL Hgb 13.1 (12.0-16.0) g/dL Hct 39.3 (36.0-48.0) % MCV 86.9 (81.0-99.0) fL MCH 29.0 (26.7-34.0) pg MCHC 33.3 (29.9-35.2) g/dL RDW 14.1 (11.0-15.0) % Plt Count 417 (150-450) 10^3/uL MPV 9.2 L (9.5-13.5) fL Neut % (Auto) 87.7 H (43.0-75.0) % Lymph % (Auto) 4.5 L (20.5-60.0) % [place] % (Auto) 7.0 (1.7-12.0) % Eos % (Auto) 0.2 L (0.9-7.0) % Baso % (Auto) 0.2 (0.2-2.0) % Neut # (Auto) 14.8 H (1.4-6.5) 10^3/uL Lymph # (Auto) 0.8 L (1.2-3.8) 10^3/uL [place] # (Auto) 1.2 H (0.3-0.8) 10^3/uL Eos # (Auto) 0.0 (0.0-0.7) 10^3/uL Baso # (Auto) 0.0 (0.0-0.1) 10^3/uL Abs Immat Gran (auto) 0.07 H (0.00-0.03) 10^3/uL Imm/Tot Granulo (auto) 0.4 (0.0-0.5) % Sodium 135 L (136-145) mmol/L Potassium 3.7 (3.5-5.1) mmol/L Chloride 99 (98-107) mmol/L Carbon Dioxide 25.7 (21.0-32.0) mmol/L Anion Gap 14.0 BUN 15.0 (7.0-18.0) mg/dL Creatinine 0.96 (0.55-1.02) mg/dL Est GFR ( Amer) >60 (>=60 mL/min/1.73m^2) Est GFR (Non-Af Amer) 58 L (>=60 mL/min/1.73m^2) BUN/Creatinine Ratio 15.6 Glucose 112 H (74-106) mg/dL Lactate 1.0 (0.4-2.0) mmol/L Calcium 10.6 H (8.5-10.1) mg/dL Urine Color Lt. yellow (YELLOW) Urine Clarity Clear (CLEAR) Urine pH 6.0 (5.0-9.0) Ur Specific [place] 1.015 (1.005-1.025) Urine Protein Negative (NEG/TRACE) mg/dL Urine Glucose (UA) Negative (NEGATIVE) mg/dL Urine Ketones Trace A (NEGATIVE) mg/dL Urine Occult Blood Small A (NEGATIVE) Urine Nitrite Negative (NEGATIVE) Urine Bilirubin Negative (NEGATIVE) Urine Urobilinogen 0.2 (0.2-1.0) EU/dL Ur Leukocyte Esterase Moderate A (NEGATIVE) Urine RBC 2-5 A (0-2) #/HPF Urine WBC 20-50 A (NONE SEEN) #/HPF Ur Squamous Epith Cells Rare (NONE/RARE) #/LPF Urine Crystals None seen (None Seen) #/HPF Urine Bacteria Trace A (NONE SEEN) #/HPF Urine Casts None seen (NONE SEEN) #/LPF Urine Mucus None seen (NONE SEEN) Urine Yeast Seen A (NONE SEEN) Ur Culture Indicated? Yes-[facility] SARS-CoV-2 Ag (CV2AG) Negative (NEGATIVE) Imaging Data Chest x-ray: Radiologist's impression: ITS Impressions Chest X-Ray 12/10/24 14:54 IMPRESSION: Developing moderate right basilar groundglass infiltrate/aspiration. Impression dictated by: Enmanuel Mar M.D. 12/10/2024 4:00 PM Dictation Location[facility] Electronically authenticated by: [id number] Y Date: 12/10/2024 16:00 ECG Data Attestation: I personally reviewed and interpreted this ECG as follows: (EKG on my interpretation shows sinus tachycardia with a rate of 119) Discharge Plan Discharge Chief Complaint: Weakness Clinical Impression: Right lower lobe pneumonia, Urinary tract infection, Hypoxemia Patient Disposition: Admitted As Inpatient Time of Disposition Decision: 16:09 Condition: Fair
[2024-12-10] MEDS: ACETAMINOPHEN 325 MG TABLET 650 MG PO (15:18)
[2024-12-10 15:43] LABS: Basophils Percent Auto 0.2 % (0.2-2.0); Eosinophils Percent Auto 0.2 % (0.9-7.0); Hematocrit 39.3 % (36.0-48.0); Hemoglobin 13.1 g/dL (12.0-16.0); Immature Granulocytes Abs Auto 0.07 10^3/uL (0.00-0.03); Immature Granulocytes Pct Auto 0.4 % (0.0-0.5); Lymphocytes Absolute Auto 0.8 10^3/uL (1.2-3.8); Lymphocytes Percent Auto 4.5 % (20.5-60.0); Mean Corpuscular HGB Conc 33.3 g/dL (29.9-35.2); Mean Corpuscular Volume 86.9 fL (81.0-99.0); Mean Platelet Volume 9.2 fL (9.5-13.5); Monocytes Absolute Auto 1.2 10^3/uL (0.3-0.8); Neutrophils Absolute Auto 14.8 10^3/uL (1.4-6.5); Neutrophils Percent Auto 87.7 % (43.0-75.0); Platelet Count 417 10^3/uL (150-450); Red Blood Count 4.52 10^6/uL (4.20-5.40); Red Cell Distribution Width 14.1 % (11.0-15.0); White Blood Count 16.8 10^3/uL (4.0-11.0)
[2024-12-10 15:46] LABS: Bilirubin Urine NEGATIVE (NEGATIVE); Blood Urine SMALL (NEGATIVE); Clarity Urine CLEAR (CLEAR); Color Urine LT. YELLOW (YELLOW); Glucose Urine UA NEGATIVE (NEGATIVE); Ketones Urine TRACE mg/dL (NEGATIVE); Leukocyte Esterase Urine MODERATE (NEGATIVE); Nitrite Urine NEGATIVE (NEGATIVE); Protein Urine NEGATIVE (NEG/TRACE); Specific Gravity Urine 1.015 (1.005-1.025); Urobilinogen Urine 0.2 EU/dL (0.2-1.0)
[2024-12-10 15:54] LABS: Internal Control Within Normal Limits; SARS-CoV-2 Ag NEGATIVE (NEGATIVE)
[2024-12-10 15:59] LABS: WBC Urine 20-50 #/HPF (NONE SEEN)
[2024-12-10 16:00] LABS: Bacteria Urine TRACE #/HPF (NONE SEEN); Cast Seen? NONE SEEN #/LPF (NONE SEEN); Crystals Seen? None Seen #/HPF (None Seen); Mucus Urine NONE SEEN (NONE SEEN); Squamous Epithelial Cell Urine RARE #/LPF (NONE/RARE); Urine Culture Indicated YES-FRMC
[2024-12-10 16:02] LABS: BUN Creatinine Ratio 15.6; Calcium 10.6 mg/dL (8.5-10.1); Carbon Dioxide 25.7 mmol/L (21.0-32.0); Chloride 99 mmol/L (98-107); Estimated GFR (African America >60 (>=60 mL/min/1.73m^2); Estimated GFR (Non-African Ame 58 (>=60 mL/min/1.73m^2); Glucose 112 mg/dL (74-106); Potassium 3.7 mmol/L (3.5-5.1); Sodium 135 mmol/L (136-145)
[2024-12-10] MEDS: LEVOFLOXACIN IN DEXTROSE 5 % 750 MG/150 ML PREMIX 100 MG IV (16:47)
--- OUTSIDE RECORDS SUMMARY | 2024-12-10 18:08 | XMS_ITS | CCD ---
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 Machine Name Role Phone IMAN WILLIS Admitting Unavailable [...] ERASTO Carrera Primary Care Unavailable SAMSA ., ISAHN Admitting Unavailable SAMSA ., ISHAN Attending Unavailable ZIEBER, DR MIGUE Wild Consulting Unavailable SAMSA ., ISHAN Consulting Unavailable NADYUNI, DR ERASTO Carrera Admitting Unavailable NADERER, DR ERASTO Carrera Primary Care Unavailable NADERER, DR ERASTO Carrera Attending Unavailable ZIEBER, DR MIGUE Wild Consulting Unavailable NADERER, DR ERASTO Carrera Consulting Unavailable GRECHNY ., GRADY ARANDA Consulting Unavailbailey gonzales HAY ., DR MCCLELLAND Consulting Unavailable NADYUNI, DR ERASTO Carrera Primary Care Unavailable DORIS .NARCISA Admitting Unavailable DORIS ., NARCISA Attending Unavailable [...] NARCISA Consulting Unavailable INGRAM, DREW Consulting Unavailable ADAMSONDANI Najera M Consulting Unavailable NADERER, DR ERASTO Carrera [...] Care Provider MD Remy Givens Attending Provider Erasto Burroughs MD Primary Care Provider MERZA, NOORALDIN Referring Unavailable JER NEFF Attending Unavailable JER NEFF Attending Unavailable AVINASH SERRANO Referring Unavailable KAUSHAL, JAZMIN Admitting Unavailable HORANI, KONG Attending Unavailable CHRISTOFER, KONG Referring Unavailable MERZA, NOORALDIN Referring Unavailable MERZA, NOORALDIN Referring Unavailable Erasto Burroughs MD Primary Care Provider Gt Wyatt MD Attending Provider Gt Wyatt Admitting Unavailable Gt Wyatt Attending Unavailable Gt Wyatt Attending Unavailable Gt Wyatt Admitting Unavailable Ihsan BROWN Attending Unavailable Ihsan BROWN Attending Unavailable ERASTO BURROUGHS Attending Unavailable ERASTO BURROUGHS Attending Unavailable NADERASTO MORRISSEY Attending Unavailable NADEREERASTO Wild Attending Unavailable NADERETorri, ERASTO Attending Unavailable NADYUNI, ERASTO Attending Unavailable Allergies Allergy Classification Reported Allergen(s) Allergy Type Date of Onset Reaction(s) Facility (6 sources) Azithromycin; Translations: [AZITHROMYCIN] Drug Allergy 9 [facility] Repository (7 sources) Latex; Translations: [LATEX] Drug allergy (disorder) 7 [facility] Repository (20 sources) Azithromycin Drug Allergy 3 [facility] (20 sources) Latex Allergy to substance 3 [facility] (1 source) Azithromycin Drug Allergy 2 [facility] Repository (1 source) Latex Drug allergy (disorder) 2 [facility] Repository (1 source) Azithromycin; Translations: [Zithromax] Drug Allergy [facility] Repository Medications Current Medications Medication Drug Class(es) Dates Sig (Normalized) Sig (Original) acetaminophen 500 mg oral tablet (6 sources) Start: 04-06-2022 Acetaminophen (Tylenol Ex Str Rapid Release) 500 mg Tablet Active 1000 MG PO Q6H as needed for Pain April 05, 2022 11:00pm acetaminophen (T ylenol) 500 MG tablet Take by mouth Active acetaminophen 325 mg / oxyCODONE hydrochloride 5 mg oral tablet (12 sources) Opioid Agonist Start: 11-06-2024 End: 12-05-2024 take 1 tablet by mouth four times daily as needed for pain oxyCODONE-acetaminophen (Percocet) 5-325 MG tablet Indications: Degeneration of intervertebral disc of lumbar region with discogenic back pain and lower extremity pain Take 1 tablet by mouth 4 (four) times a day as needed for severe pain or moderate pain for up to 7 days 28 tablet 11/28/2024 12/05/2024 Active Start: 10-09-2024 End: 10-28-2024 take 1 tablet by mouth four times daily as needed for pain oxyCODONE-acetaminophen (Percocet) 5-325 MG tablet Indications: Degeneration of intervertebral disc of lumbar region with discogenic back pain and lower extremity pain Take 1 tablet by mouth 4 (four) times a day as needed for severe pain or moderate pain for up to 7 days 28 tablet 10/21/2024 10/28/2024 Active albuterol 0.833 mg/ml / ipratropium bromide 0.167 mg/ml inhalation solution (3 sources) Anticholinergic, beta2-Adrenergic Agonist Start: 04-06-2022 take 1 mL by inhalation four times daily Ipratropium-Albuterol 0.5 mg-3 mg(2.5 mg base)/3 mL Solution For Nebulization Active 0.5 ML INHALATION Four times daily April 05, 2022 11:00pm arginine 500 mg oral tablet (20 sources) Start: 05-17-2023 End: 11-20-2024 take 1 tablet by mouth every twelve hours arginine 500 MG tablet Take 1 tablet by mouth every 12 (twelve) hours 05/17/2023 11/20/2024 Discontinued aspirin 81 mg delayed release oral tablet (20 sources) Platelet Aggregation Inhibitor, Nonsteroidal Anti-inflammatory Drug Start: 04-06-2022 End: 11-20-2024 take 1 tablet by mouth once daily Aspirin 81 mg Tablet,Delayed Release (Dr/Ec) Active 81 MG PO Daily April 05, 2022 11:00pm atorvastatin 40 mg oral tablet (10 sources) HMG-CoA Reductase Inhibitor Start: 04-06-2022 atorvastatin (Lipitor) 40 MG tablet 03/17/2024 Active cholecalciferol 0.05 mg oral capsule (20 sources) Vitamin D Start: 08-01-2024 End: 11-20-2024 take 1 capsule by mouth once daily in the morning cholecalciferol (Vitamin D-3) 50 MCG (1999 UT) capsule Indications: Vitamin D deficiency TAKE 1 CAPSULE BY MOUTH EVERY MORNING 90 capsule 3 08/01/2024 11/20/2024 Discontinued Start: 06-26-2023 End: 06-26-2024 take 1 capsule by mouth once in the morning cholecalciferol (Vitamin D-3) 50 MCG (2000 UT) capsule Indications: Vitamin D deficiency Take 1 capsule (50 mcg) by mouth in the morning. 90 capsule 3 06/26/2023 06/26/2024 Active Start: 04-06-2022 take 1 tablet by shayna th once daily Cholecalciferol (Vitamin D3) 50 mcg (2,000 unit) Tablet Active 50 MCG PO Daily April 05, 2022 11:00pm ciprofloxacin 500 mg oral tablet (1 source) Quinolone Antimicrobial Start: 10-14-2024 End: 10-24-2024 take 1 tablet by mouth in the morning ciprofloxacin (Cipro) 500 MG tablet Indications: Urinary tract infection without hematuria, site unspecified Take 1 tablet (500 mg) by mouth in the morning and 1 tablet (500 mg) before bedtime. Do all this for 10 days. 20 tablet 10/14/2024 10/24/2024 Active DULoxetine 30 mg delayed release oral capsule (20 sources) Serotonin and Norepinephrine Reuptake Inhibitor Start: 04-26-2023 End: 11-20-2024 take 3 capsules by mouth in the morning DULoxetine (Cymbalta) [address] capsule Take 3 capsules by mouth in the morning. 04/26/2023 11/20/2024 Discontinued Start: 04-06-2022 take 3 capsules by m outh once daily Duloxetine 30 mg Capsule, Delayed Rel Sprinkle Active 90 MG PO Daily April 05, 2022 11:00pm Start: 04-06-2022 take 90 mg by mouth once daily Duloxetine Active 90 MG PO Daily April 05, 2022 11:00pm eszopiclone 3 mg oral tablet (20 sources) Start: 04-06-2022 End: 11-20-2024 take 1 tablet by mouth at bedtime eszopiclone (Lunesta) 3 MG tablet Take 1 tablet by mouth at bedtime 05/09/2023 11/20/2024 Discontinued furosemide 40 mg oral tablet (9 sources) Loop Diuretic Start: 05-30-2023 End: 06-26-2024 take 1 tablet by mouth every twenty-four hours as needed furosemide (Lasix) 40 MG tablet Take 1 tablet by mouth Daily as needed 05/30/2023 06/26/2024 Discontinued gabapentin 300 mg oral capsule (3 sources) Anti-epileptic Agent Start: 11-20-2024 take 1 capsule by mouth in the morning, then take 1 capsule by mouth in the evening, then take 1 capsule by mouth at bedtime gabapentin (Neurontin) 300 MG capsule Indications: Degeneration of intervertebral disc of lumbar region with discogenic back pain and lower extremity pain Take 1 capsule (300 mg) by mouth in the morning and 1 capsule (300 mg) in the evening and 1 capsule (300 mg) before bedtime. 90 capsule 2 11/20/2024 Active Start: 11-20-2024 take 1 capsule by mo ut in the morning, then take 1 capsule by mouth in the evening, then take 1 capsule by mouth at bedtime gabapentin (Neurontin) 300 MG capsule Indications: Degeneration of intervertebral disc of lumbar region with discogenic back pain and lower extremity pain Take 1 capsule (300 mg) by mouth in the morning and 1 capsule (300 mg) in the evening and 1 capsule (300 mg) before bedtime. 90 capsule 2 11/20/2024 Active glipiZIDE 5 mg oral tablet (20 sources) Sulfonylurea Start: 03-12-2024 End: 11-20-2024 take 1 tablet by mouth once daily glipiZIDE (Glucotrol) 5 MG tablet Indications: Type 2 diabetes mellitus with hyperglycemia, without long-term current use of insulin ([facility]) TAKE 1 TABLET(5 MG) BY MOUTH DAILY 90 tablet 3 03/12/2024 11/20/2024 Discontinued 12 hr guaiFENesin 600 mg extended release oral tablet (3 sources) Start: 11-12-2024 take 1 tablet by mouth in the morning, then take 1 tablet by mouth every twelve hours at bedtime guaiFENesin (Mucinex) 600 MG 12 hr tablet Take 1,200 mg by mouth in the morning and 1,200 mg before bedtime. 11/12/2024 Active ibuprofen 200 mg oral tablet (3 sources) Nonsteroidal Anti-inflammatory Drug ibuprofen 200 MG tablet Take by mouth Active ipratropium bromide 0.2 mg/ml inhalation solution (20 sources) Anticholinergic End: 11-20-2024 ipratropium (Atrovent) 0.02 % nebulizer solution Take 0.5 mg by nebulization every 6 (six) hours 11/20/2024 Discontinued 200 actuat levalbuterol 0.045 mg/actuat metered dose inhaler (20 sources) beta2-Adrenergic Agonist End: 11-20-2024 take 2 puff(s) by inhalation every four hours for wheezing levalbuterol (Xopenex HFA) 45 MCG/ACT inhaler Inhale 2 puffs every 4 (four) hours if needed for wheezing 11/20/2024 Discontinued levoFLOXacin 750 mg oral tablet (2 sources) [...] tablet (20 sources) beta-Adrenergic Joslyn Start: 06-08-2023 End: 11-20-2024 take 0.5 tablet by mouth in the morning metoprolol tartrate (Lopressor) 25 MG tablet Take 0.5 tablets by mouth in the morning and 0.5 tablets before bedtime. 06/08/2023 11/20/2024 Discontinued Start: 04-06-2022 Metoprolol Tar trate 25 mg Tablet Active 12.5 MG PO Q12H April 05, 2022 11:00pm Start: 04-06-2022 take 12.5 mg by mout h every twelve hours Metoprolol Tartrate Active 12.5 MG PO Q12H April 05, 2022 11:00pm 10 actuat olodaterol 0.0025 mg/actuat / tiotropium 0.0025 mg/actuat inhalation spray (14 sources) Anticholinergic, beta2-Adrenergic Agonist Start: 08-06-2024 tiotropium-olodaterol (Stiolto Respimat) 2.5-2.5 MCG/ACT aerosol solution inhaler 1 (one) time each day at the same time 08/06/2024 Active omeprazole 40 mg delayed release oral capsule (20 sources) Proton Pump Inhibitor Start: 08-29-2023 End: 11-20-2024 take 1 capsule by mouth in the morning omeprazole (PriLOSEC) [address] capsule Indications: Hyponatremia Take 1 capsule (40 mg) by mouth in the morning and 1 capsule (40 mg) in the evening. Take before meals. 180 capsule 3 08/29/2023 11/20/2024 Discontinued take 1 capsule by mouth before m ealtime omeprazole (PriLOSEC) [address] capsule Take 1 capsule by mouth in the morning. Take before meals. 0 Active ondansetron 4 mg disintegrating oral tablet (20 sources) Serotonin-3 Receptor Antagonist Start: 03-21-2023 End: 11-20-2024 take 1 tablet by mouth every six hours as needed ondansetron ODT (Zofran-ODT) 4 MG disintegrating tablet Take 1 tablet by mouth every 6 (six) hours if needed 03/21/2023 11/20/2024 Discontinued pantoprazole 40 mg delayed release oral tablet [...] 05/30/2023 Active predniSONE 10 mg oral tablet (16 sources) Start: 08-28-2024 End: 11-20-2024 take 6 tablets by mouth once daily, [...] daily x 3 days 39 tablet 08/28/2024 11/20/2024 Discontinued Start: 04-06-2022 take 1 tablet by shayna th once daily Prednisone 10 mg Tablet Active 10 MG PO Daily April 05, 2022 11:00pm pregabalin 100 mg oral capsule (20 sources) Start: 04-06-2022 End: 11-20-2024 take 1 capsule by mouth three times daily pregabalin (Lyrica) 100 MG capsule Indications: DDD (degenerative disc disease), lumbar TAKE 1 CAPSULE BY MOUTH THREE TIMES DAILY 270 capsule 10/29/2024 11/20/2024 Discontinued traMADol hydrochloride 50 mg oral tablet (2 [...] unspecified; Translations: [Emphysema, unspecified] Onset: 12-18-2021 Resolved: 10-09-2024 08-27-2023 Chronic Coronary atherosclerosis and other heart disease (20 sources) Atherosclerotic heart disease of [place] coronary artery without angina pectoris; Translations: [Coronary occlusion] Onset: 03-08-2022 Chronic Coronary atherosclerosis and other heart disease (2 sources) Presence of coronary angioplasty implant and graft; Translations: [Presence of coronary angioplasty implant and graft] Onset: 01-07-2024 Episodic Deficiency and other anemia (1 source) Iron deficiency anemia, unspecified; Translations: [IRON DEFICIENCY ANEMIA, UNSPECIFIED] Onset: 03-08-2022 Episodic Diabetes mellitus with complications (20 sources) Type 2 diabetes mellitus with hyperglycemia; Translations: [Hyperglycemia due to type 2 diabetes mellitus] Onset: 03-16-2022 08-27-2023 Chronic Diabetes mellitus without complication (1 source) Type 2 diabetes mellitus without complications; Translations: [TYPE 2 DM WITHOUT COMPLICATIONS] Onset: 05-01-2022 Chronic Diabetes mellitus without complication (1 source) Hyperglycemia, unspecified; Translations: [HYPERGLYCEMIA, UNSPECIFIED] Onset: 03-08-2022 Episodic Disorders of lipid metabolism (20 sources) Pure hypercholesterolemia, unspecified; Translations: [Dyslipidemia] Onset: [...] Translations: [DEPRESSION, UNSPECIFIED] Onset: 03-08-2022 Noninfectious gastroenteritis (20 sources) Collagenous colitis; Translations: [Collagenous colitis] Onset: 08-27-2023 08-27-2023 Chronic Nutritional deficiencies (20 sources) Vitamin D deficiency, unspecified; Translations: [Vitamin D deficiency] Onset: 03-29-2022 08-27-2023 Chronic Osteoarthritis (4 sources) Primary generalized (osteo)arthritis; Translations: [PRIMARY GENERALIZED OSTEOARTHRITIS] Onset: 10-10-2022 Chronic Osteoporosis (20 sources) Age-related osteoporosis without current pathological fracture; Translations: [Senile osteoporosis] Onset: 12-22-2021 Chronic Other aftercare (5 sources) 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; Translations: [OTH MEDICATION CARE MANAGER CURRENT DRUG THERAPY] Onset: 05-01-2022 Episodic Other aftercare (13 sources) Long-term current use of drug therapy; Translations: [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] Onset: 10-09-2024 10-09-2024 Episodic Other circulatory disease (1 source) Raynaud's syndrome without gangrene; Translations: [RAYNAUDS SYNDROME WITHOUT GANGRENE] Onset: 12-18-2021 Chronic Other circulatory disease (2 sources) Other hypotension; Translations: [Other hypotension] Onset: 01-07-2024 Episodic Other connective tissue disease (2 sources) Polymyalgia rheumatica; Translations: [POLYMYALGIA RHEUMATICA] Onset: 03-08-2022 Chronic Other connective tissue disease (20 sources) Polymyalgia rheumatica; Translations: [Polymyalgia rheumatica] Onset: 08-27-2023 08-27-2023 Chronic Other connective tissue disease (4 sources) Pain in left lower limb; Translations: [Pain in left leg] 11-20-2024 Episodic Other connective tissue disease (4 sources) Pain in right lower limb; Translations: [Pain in right leg] 11-20-2024 Episodic Other connective tissue disease (2 sources) Other symptoms and signs involving the musculoskeletal system; Translations: [Other musculoskeletal symptoms referable to limbs] 11-20-2024 Episodic Other lower respiratory disease (4 sources) Other nonspecific abnormal finding of lung field; Translations: [OTH NONSPECIFIC ABN FIND LNG FIELD] Onset: 10-31-2022 Episodic Other nervous system disorders (20 sources) Thoracic outlet syndrome; Translations: [Brachial plexus disorders] Onset: 08-27-2023 08-27-2023 Chronic Other nervous system disorders (6 sources) Numbness; Translations: [Anesthesia of skin] 11-20-2024 Episodic Other non-traumatic joint disorders (1 source) Arthropathy in other blood disorders; Translations: [ARTHROPATHY OTHER BLOOD DISORDERS] Onset: 12-16-2021 Chronic Other screening for suspected conditions (not mental disorders or infectious disease) (2 sources) Other specified abnormal findings of blood chemistry; Translations: [Other specified abnormal findings of blood chemistry] Onset: 01-07-2024 Episodic Personality disorders (20 sources) Chronic depression; Translations: [Chronic depressive disorder] Onset: 08-27-2023 08-27-2023 Chronic Respiratory failure; insufficiency; arrest (adult) (20 sources) Chronic respiratory failure with hypoxia; Translations: [Dependence on supplemental oxygen] Onset: 05-01-2022 Resolved: 02-21-2024 02-21-2024 Chronic Spondylosis; intervertebral disc disorders; other back problems (20 sources) Degeneration of lumbar intervertebral disc; Translations: [Other intervertebral disc degeneration, lumbar region] Onset: 10-09-2024 08-20-2023 Chronic Substance-related disorders (2 sources) Nicotine dependence, unspecified, uncomplicated; Translations: [Nicotine dependence, cigarettes, uncomplicated] Onset: 03-08-2022 Chronic Systemic lupus erythematosus and connective tissue disorders (2 sources) Other giant cell arteritis; 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] Onset: 04-08-2023 Chronic Unclassified (1 source) SPONTANEOUS PNEUMO Onset: 03-08-2022 Unclassified (1 source) CONTACT W/AND (SUSP) EXPOS COVID-19; Translations: [CONTACT W/AND (SUSP) EXPOS COVID-19] Onset: 05-01-2022 Unclassified (1 source) THROMBOCYTOSIS UNSPECIFIED; Translations: [THROMBOCYTOSIS UNSPECIFIED] Onset: 04-04-2022 Unclassified (4 sources) Bilateral leg weakness 11-20-2024 Past or Other Problems Problem Classification Problem Date Documented Da te Episodic/Chronic Acute bronchitis (16 sources) Acute infective bronchitis; Translations: [Acute bronchitis due to other specified organisms] Onset: 08-28-2024 Resolved: 10-09-2024 08-28-2024 Episodic Deficiency and other anemia (1 source) Other iron deficiency anemias; Translations: [OTHER IRON DEFICIENCY ANEMIAS] Onset: 05-01-2022 Episodic Fever of unknown origin (20 sources) Fever; Translations: [Fever, unspecified] Onset: 06-26-2024 Resolved: 10-09-2024 06-26-2024 Episodic Fluid and electrolyte disorders (20 sources) Dehydration; Translations: [Hyponatremia] Onset: 12-18-2021 Resolved: 10-09-2024 06-14-2023 Episodic Genitourinary symptoms and ill-defined conditions (20 sources) Dysuria; Translations: [Dysuria] Onset: 08-27-2023 Resolved: 02-21-2024 02-21-2024 Episodic Mycoses (15 sources) Pneumonia in aspergillosis; Translations: [Aspergillosis, unspecified] Onset: 07-22-2024 Resolved: 10-09-2024 07-22-2024 Episodic Nutritional deficiencies (1 source) Cachexia; Translations: [CACHEXIA] Onset: 04-04-2022 Episodic Other aftercare (1 source) 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 technician (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; Translations: [LONG-TERM CURRENT USE OF ASPIRIN] Onset: 05-01-2022 Episodic Other aftercare (1 source) prison (current) use of antithrombotics/ant iplatelets; Translations: [LONG-TERM ANTITHROMBOT/ANTIPL ATLETS] Onset: 03-16-2022 Episodic Other aftercare (20 sources) Post-discharge follow-up; Translations: [Encounter for follow-up examination after completed treatment for conditions other than malignant neoplasm] Onset: 06-14-2023 Resolved: 06-26-2024 06-14-2023 Episodic Other circulatory disease (4 sources) Hypotension, unspecified; Translations: [HYPOTENSION UNSPECIFIED] Onset: 12-14-2021 Episodic Other connective tissue disease (1 source) Fibromyalgia; Translations: [FIBROMYALGIA] Onset: 04-04-2022 Episodic Other connective tissue disease (20 sources) Fibromyalgia; Translations: [Fibromyalgia] Onset: 08-27-2023 08-27-2023 Episodic Other injuries and conditions due to external causes (1 source) History of falling; Translations: [HISTORY OF FALLING] Onset: 03-16-2022 Episodic Other lower respiratory disease (3 sources) Shortness of breath; Translations: [SHORTNESS OF BREATH] Onset: 04-25-2022 Episodic Other nervous system disorders (20 sources) Paresthesia; Translations: [Paresthesia of skin] Onset: 08-27-2023 08-27-2023 Episodic Other nutritional; endocrine; and metabolic disorders (1 source) Body mass index (BMI) 19.9 or less, adult; Translations: [BODY MASS INDEX 19.9 OR LESS ADULT] Onset: 04-04-2022 Episodic Pleurisy; pneumothorax; pulmonary collapse (20 sources) Spontaneous pneumothorax; Translations: [Spontaneous tension pneumothorax] Onset: 03-06-2022 Resolved: 10-09-2024 Episodic Pneumonia (except that caused by tuberculosis or sexually transmitted disease) (20 sources) Pneumonia, unspecified organism; Translations: [Pneumonia] Onset: 05-01-2022 Resolved: 10-09-2024 Episodic Residual codes; unclassified (20 sources) Bilateral lower limb edema; Translations: [Localized edema] Onset: 08-27-2023 08-27-2023 Episodic Respiratory failure; insufficiency; arrest (adult) (2 sources) Acute respiratory failure with hypoxia; Translations: [ACUTE RESPIRATORY FAILURE WITH HYPOXIA] Onset: 03-08-2022 Episodic Screening and history of mental health and substance abuse codes (1 source) Personal history of nicotine dependence; Translations: [PERSONAL HISTORY OF NICOTINE DEPEND] Onset: 05-01-2022 Episodic Spondylosis; intervertebral disc disorders; other back problems (7 sources) Lumbar radiculopathy; Translations: [Radiculopathy, lumbar region] Onset: 08-27-2023 11-20-2024 Episodic Urinary tract infections (20 sources) Pyelonephritis; Translations: [Tubulo-interstitia l nephritis, not specified as acute or chronic] Onset: 02-21-2024 Resolved: 07-17-2024 02-21-2024 Episodic Results Test Name Value Interpretation Reference Range Facility ALL SED RATEon 12-02-2024 Interpretation and review of laboratory results Abnormal [facility] TBH SED RATE 67 High NINF [facility] Patient Letter FTon 2024 Patient Letter [facility] [place] [facility] November 10, 2024 LISE CANALES [address] [place] [address] : 1955 Dear Ms. Lise Canales, You missed your scheduled appointment on:11/10/2024. Please note our appointment slots fill quickly. When you fail to cancel or reschedule an appointment the office is unable to fill the appointment slot that was reserved for you. In the future, we ask that you call 24 hours in advance to cancel your appointment. Our current reminder system gives you the opportunity to cancel by responding to our reminder text, phone call or email. You can also call the office to reschedule during normal business hours or use our on-line scheduling portal at your convenience. Our goal is to provide convenient and quality care to all of our patients. We appreciate your consideration regarding any future cancellations. Sincerely, [facility] [place] [address] ext.3 [facility] [place] [address] Magnetic Resonance Report Signed Patient: LISE CANALES MR#: [id number] : 1955 Acct:[id number] Age/Sex: 69 / F ADM Date: 10/27/24 Loc: MRI Attending Dr: Arielle Perry M.D. Ordering Physician: Arielle Prery M.D. Date of Service: 10/27/24 Procedure(s): MR lumbar spine wo con Accession Number(s): [id number] cc: Erasto Burroughs M.D.; Arielle Perry M.D. [address] [address] Patient Name: LISE Easton COVERT MRN: [id number] date: 1955 Sex: F Assigned Patient Location: MRI Current Patient Location: MRI Accession/Order Number: [id number] Exam Date: 10/27/2024 14:11 Report Date: 10/27/2024 14:23 At the request of: ARIELLE PERRY MD Procedure: MR lumbar spine wo [...] stenosis. Posterior element hypertrophy. Moderate left and [id number] right neural foraminal narrowing L4-5: Adequate disc [...] plain film assessment: None Impression dictated by: Enmaunel Mar M.D.10/27/2024 2:23 PM Dictation Location: [place] [address] Electronically authenticated by: [id number] Y Date: 10/27/2024 14:23 Dictated By: Enmanuel Mar D.O. Signed By: 10/27/24 1426 DD/ 142 TD/TT: Ground Defence Officer: [facility] Radiology, Radiologist, MD - 10/27/2024 [place] [address] Magnetic Resonance Report Signed Patient: OMEGATLISE MR#: [id number] : 1955 Acct:[id number] Age/Sex: 69 / F ADM Date: 10/27/24 Loc: MRI Attending Dr: Arielle Perry M.D. Ordering Physician: Arielle Perry M.D. Date of Service: 10/27/24 Procedure(s): MR lumbar spine wo con Accession Number(s): [id number] cc: Erasto Burroughs M.D.; Arielle Perry M.D. [facility] [place] [id number] Patient Name: LISE DUFFT MRN: [facility]:[id number] date: 1955 Sex: F Assigned Patient Location: MRI Current Patient Location: MRI Accession/Order Number: [id number] Exam Date: 10/27/2024 14:11 Report Date: 10/27/2024 14:23 At the request of: ARIELLE PERRY MD Procedure: MR lumbar spine wo [...] stenosis. Posterior element hypertrophy. Moderate left and [id number] right neural foraminal narrowing L4-5: Adequate disc [...] Enmanuel Mar M.D.10/27/2024 2:23 PM Dictation Location: [facility] Electronically authenticated by: [id number] Y Date: 10/27/2024 14:23 Dictated By: Enmanuel Mar D.O. Signed By: 10/27/24 1426 DD/ 1423 TD/TT: Ground Defence Officer: [facility] Radiology Study observation (narrative) [facility] MR LUMBAR SPINE WO CONOrdere d By: Radiologist Radiology on 10-27-2024 [facility] Work Phone: XR LUMBAR SPINE MIN [address] [place] [address] XRay Report Signed Patient: COVERT,LISE Easton MR#: [id number] : 1955 Acct:[id number] Age/Sex: 69 / F ADM Date: 10/10/24 Loc: EC Attending Dr: Arielle Perry M.D. Ordering Physician: Arielle Perry M.D. Date of Service: 10/10/24 Procedure(s): XR lumbar spine min 4V Accession Number(s): [id number] cc: Erasto Burroughs M.D.; Arielle Perry M.D. [place] [id number] Patient Name: LISE Easton COVERT MRN: [id number] date: 1955 Sex: F Assigned Patient Location: Current Patient Location: LAB Accession/Order Number: [id number] Exam Date: 10/10/2024 12:36 Report Date: 10/10/2024 12:41 At the request of: ARIELLE PERRY MD Procedure: XR lumbar spine min [...] Allyn Contreras M.D.10/10/2024 12:41 PM Dictation Location: [place] [address] Electronically authenticated by: [id number] Y Date: 10/10/2024 12:41 Dictated By: Allyn Contreras M.D. Signed By: 10/10/24 1244 DD/ 1241 TD/TT: Ground Defence Officer: [facility] Radiology, Radiologist, MD - 10/10/2024 [place] [address] XRay Report Signed Patient: OMEGAT,LISE Easton MR#: [id number] : 1955 Acct:[id number] Age/Sex: 69 / F ADM Date: 10/10/24 Loc: Attending Dr: Arielle Perry M.D. Ordering Physician: Arielle Perry M.D. Date of Service: 10/10/24 Procedure(s): XR lumbar spine min 4V Accession Number(s): [id number] cc: Erasto Burroughs M.D.; Arielle Perry M.D. The [address] [id number] Patient Name: LISE CANALES MRN: [facility]:[id number] date: 1955 Sex: F Assigned Patient Location: Current Patient Location: LAB Accession/Order Number: [id number] Exam Date: 10/10/2024 12:36 Report Date: 10/10/2024 12:41 At the request of: ARIELLE PERRY MD Procedure: XR lumbar spine min [...] Allyn Contreras M.D.10/10/2024 12:41 PM Dictation Location: [place] [address] Electronically authenticated by: [id number] Y Date: 10/10/2024 12:41 Dictated By: Allyn Contreras M.D. Signed By: 10/10/24 1244 DD/ 1241 TD/TT: Ground Defence Officer: [facility] [place] Radiology Study observation (narrative) [facility] XR LUMBAR SPINE MIN 4VOrdere d By: Radiologist Radiology on 10-10-2024 [facility] Work Phone: Urine Cultureon 07-09-2024 Bacteria identified Cx Nom (U) No Growth 2 Days PERFORMED BY: [place] [id number] PATHOLOGIST ASSISTANT PROFESSOR OF RADIOLOGY LEA QUINTANILLA M.D. Normal [facility] Comment on above: Performed By: #### C UU #### [address] Aerobic Cultureon 07-08-2024 Aerobic Culture ORGANISM: Asperigillus fumigatus (O:ASPFUM) Comments . Quantity of Growth Rare Growth Send Test to Ref. Lab Sent to [facility] for Mold Identification Identification performed at: [address] [id number] Top Carrier: Deejay Cortez PhD, Phone: [phone] Gram Stain Result 3+ White Blood Cells 1+ Yeast Like Elements 1+ Epithelial Cells 1+ Gram Positive Bacilli Rare Gram Positive Cocci PERFORMED BY: [place] [id number] PATHOLOGIST ASSISTANT PROFESSOR OF RADIOLOGY LEA QUINTANILLA M.D. Normal [facility] Comment on above: Performed By: #### G S, AERC #### [address] Gram Stainon 07-08-2024 Microscopic observation Gram stain Nom (Unsp spec) Gram Stain Result 3+ White Blood Cells 1+ Yeast Like Elements 1+ Epithelial Cells 1+ Gram Positive Bacilli Rare Gram Positive Cocci PERFORMED BY: [place] [id number] PATHOLOGIST ASSISTANT PROFESSOR OF RADIOLOGY LEA Rutledge [facility] Comment on above: Performed By: #### G S, AERC #### [address] Gram stain microscopyOrdered By: Gt Wyatt on 07-08-2024 Microscopic observation Gram stain Nom (Unsp spec) Gram stain microscopy [facility] URINE CULTURE, ROUTINEon Bacteria identified Cx Nom (U) Urine Culture, Routine [facility] Bacteria identified Cx Nom (U) No growth [facility] Bacteria identified Cx Nom (U) [facility]formed at: [facility] Bacteria identified Cx Nom (U) [address] [place] [phone] [facility] Bacteria identified Cx Nom (U) Top Carrier: Deejay Cortez PhD, Phone: [phone] [facility] Ambulatory Visit Summaryon 1 07-12-2023 Ambulatory [...] Ihsan BROWN MD Where: [facility] [address] [place] [address]- You Need to Schedule the Following Appointments Follow Up with Ihsan BROWN MD, URL When: Where: [facility] [address], [place] [address]- Medications What How Much When Instructions New cephalexin (Keflex 500 mg Cap) 1 Capsules By Mouth Every 12 hours Duration: 10 Days Pickup at [email or web address] #[id number] Changed estradiol topical (estradiol 0.1 mg/ g Vag Crm) 1 Gram Vaginal As Directed Plunge 1 gm vaginally then apply excess cream around the urethra once a week at night. Pickup at [facility] #[id number] Unchanged albuterol (Albuterol (Eqv-Proventil HFA) 90 mcg/ [...] physician if questions or concerns Pharmacy Information [facility] #[id number]: [address], [place] [phone] Allergies Latex (RASH) Zithromax (HIVES) Problems Ongoing [...] The urethra (more content not included)... Normal [facility] Urology Office/Clinic Noteon 05-12-2024 Urology Office/Clinic Note [...] x 10 days. SEs discussed. Sent to [facility]. unable to send urine for culture today due to no transport. -Restart Estradiol cream. Use 1x/week. Notify office if experiencing SEs. Sent to [facility]. 3. Asymptomatic microscopic hematuria (R31.21: Asymptomatic microscopic hematuria) Chronic. [2] Follow-up With When Contact Information KEVIN SALDIVAR, Ihsan Wild, URL [facility] [address] [place] [address]- Additional Instructions: 6 mos for UD Patient [...] refills GUAIFE (more content not included)... Normal [facility] Comment on above: Result Comment: Elec tronically Signed By: Ihsan BROWN MD\.br\Date and Time Signed: 05/12/24 17:00 EST\.br\Electronically Co-Signed By: Katarina Bose\.br\Date and Time Co-Signed: 05/12/24 16:58 EST MLR HEMOGLOBIN A1Con 024 Glucose [Mass/Vol] 192 mg/dL [facility] HbA1c (Bld) [Mass fraction] 8.3 % High 4.5 - 6.2 % [facility] Comment on above: ADA RECOMMENDED LIMI T 4.0 - 6.0 ADA THERAPEUTIC TARGET < 7.0 ACTION SUGGESTED > 7.0 Interpretation and review of laboratory results Abnormal [facility] 36on 02-12-2024 36 Tried to contact patient again. She has no VM. [facility] 36on 01-29-2024 36 Regarding lab result s from 01/07/2024: MD Kika Becerra MA Blood work is ok, follow up as planned in 6 months. Tried to contact patient but no VM. Will try again tomorrow. [facility] Office Visiton 01-07-2024 Follow-up visit [id number] Covert,Lise Easton 1955 F Date Provider Department Center 01/07/2024 JER LARRY Family History Problem Relation Age of Onset Stroke Father Stroke Father's Sister Coronary artery disease Paternal Grandmother Family Status - Relation Status Age at Father Father's Sister Paternal Grandmother Level of Service:74428 CO OFFICE/OUTPATIENT ESTABLISHED MOD MDM 30 MIN [facility] 36on 09-03-2023 36 Home health informed and script sent [facility] Orders Onlyon 08-30-2023 Orders Only [id number] Covert,Lise Easton 1955 F Date Provider Department Center 08/30/2023 RUSH HENNESSY Family History Problem Relation Age of Onset Stroke Father Stroke Father's Sister Coronary artery disease Paternal Grandmother Family Status - Relation Status Age at Father Father's Sister Paternal Grandmother [facility] Office Visiton 06-27-2023 Follow-up visit [id number] Covert,Lise Easton 1955 F Date Provider Department Center 06/27/2023 Andrew-JER NEFF MARC Jones Reagan Family History Problem Relation Age of Onset Stroke Father Stroke Father's Sister Coronary artery disease Paternal Grandmother Family Status - Relation Status Age at Father Father's Sister Paternal Grandmother Level of Service:31742 CO OFFICE/OUTPATIENT ESTABLISHED LOW MDM 20 MIN Normal [facility] 30on 06-06-2023 30 The patient is [...] stability, deterioration, or improvement Normal [facility] BASIC METABOLIC PANELon 11-2 Anion gap [Moles/Vol] 9 mmol/L Normal 7-20 [facility] Comment on above: Performed By: #### L [id number] #### [facility] ([facility]) [address] [place] [address] Calcium [Mass/Vol] 8.3 mg/dL Low 8.6-10.3 [facility] Comment on above: Performed By: #### L [id number] #### [facility] ([facility]) [address] [place] [address] Chloride [Moles/Vol] 99 mmol/L Normal 98-107 [facility] Comment on above: Performed By: #### L [id number] #### [facility] ([facility]) [address] [place] [address] CO2 [Moles/Vol] 26 mmol/L Normal 21-31 [facility] Comment on above: Performed By: #### L [id number] #### [facility] ([facility]) [address] [facility] [place] [address] Creatinine [Mass/Vol] 0.72 mg/dL Normal 0.60-1.20 [facility] Comment on above: Performed By: #### L [id number] #### [facility] ([facility]) [address] [place] [address] GLOMERULAR FILTRATION RATE ML/MIN/1.73 SQ M.PREDICTED 92.2 mL/min/1.73m*2 Normal >60.0 [facility] Comment on above: Result Comment: The [facility]???s estimated glomerular filtration rate (eGFR) will [...] individuals. Performed By: #### L [id number] #### [facility] ([facility]) [address] [place] [address] Glucose [Mass/Vol] 107 mg/dL High 70-100 [facility] Comment on above: Performed By: #### L [id number] #### [facility] ([facility]) [address] [facility] [place] [address] Potassium [Moles/Vol] 3.9 mmol/L Normal 3.5-5.1 [facility] Comment on above: Performed By: #### L [id number] #### [facility] ([facility]) [address] [place] [address] Sodium [Moles/Vol] 130 mmol/L Low 136-145 [facility] Comment on above: Performed By: #### L [id number] #### [facility] ([facility]) [address] [place] [address] Urea nitrogen [Mass/Vol] 12 mg/dL Normal 7-25 [facility] Comment on above: Performed By: #### L [id number] #### [facility] [address] [place] [address] UREA NITROGEN/CREATININE (MASS RATIO) IN SER/PLAS 16.7 Normal [facility] Comment on above: Performed By: #### L [id number] #### [facility] [address] [place] [address] CBCon 06-06-2023 Erythrocyte distribution width (RBC) [Ratio] 13.4 % Normal 11.5-15.0 [facility] Comment on above: Performed By: #### L [id number] #### [facility] ([facility] [address] [place] [address] ERYTHROCYTE MEAN CORPUSCULAR HEMOGLOBIN CONCENTRATION (G/DL) BY AUTOMATED 33.4 g/dL Normal 32.0-35.0 [facility] Comment on above: Performed By: #### L [id number] #### [facility] ([facility] [address] [place] [address] Hematocrit (Bld) [Volume fraction] 28.7 % Low 36.0-48.0 [facility] Comment on above: Performed By: #### L [id number] #### [facility] ([facility]) [address] [place] [address] Hemoglobin (Bld) [Mass/Vol] 9.6 g/dL Low 12.0-15.0 [facility] Comment on above: Performed By: #### L [id number] #### [facility] ([facility]) [address] [place] [address] MCH (RBC) [Entitic mass] 28.2 pg Normal 27.0-33.0 [facility] Comment on above: Performed By: #### L [id number] #### [facility] ([facility]) [address] [place] [address] MCV (RBC) [Entitic vol] 84.4 fL Normal 82.0-98.0 [facility] Comment on above: Performed By: #### L [id number] #### [facility] ([facility]) [address] [place] [address] PLATELETS (10*3/UL) IN BLOOD AUTOMATED COUNT 522 10*3/uL High 150-400 [facility] Comment on above: Performed By: #### L [id number] #### [facility] ([facility]) [address] [place] [address] RBC (Bld) [#/Vol] 3.40 10*6/uL Low 3.80-5.00 [facility] Comment on above: Performed By: #### L [id number] #### [facility] ([facility]) [address] [place] [address] WBC (Bld) [#/Vol] 10.31 10*3/uL Normal 4.00-10.60 [facility] Comment on above: Performed By: #### L [id number] #### [facility] ([facility]) [address] [place] [address] Letter (Out)on 06-06-2023 Letter (Out) [id number] Covert,Lise Easton 1955 F Date Provider Department Center 06/06/2023 [id number], GENERIC PRO*INIT None Family History Problem Relation Age of Onset Stroke Father Stroke Father's Sister Coronary artery disease Paternal Grandmother Family Status - Relation Status Age at Father Father's Sister Paternal Grandmother Normal [facility] MAGNESIUMon 06-06-2023 Magnesium [Mass/Vol] 1.9 mg/dL Normal 1.9-2.7 [facility] Comment on above: Performed By: #### L [id number] #### [facility] ([facility]) [address] [place] [address] 30on 06-05-2023 30 The patient is Moderately Stable - Low risk of patient condition declining or worsening The patient's goals for the shift include comfort The clinical goals for the shift include stable vitals [facility] 30 Daily Case Managemen t Update Multidisciplinary rounds have been completed. Barriers to Discharge: Transfer from [place] for chest pain and NSTEMI. TTE ordered. Pending cardio rec. Trop was .06 down to .04. +UTI and Pneumonia. Continue IV Rocephin. Urine and blood cultures pending. Patient is from home with [facility] 02 Diet: Dietary Orders [...] DANIEL GUERIN 06/05/23 1508 Normal [facility] 30 The patient is Moderately Unstable - Medium risk of patient condition declining or worsening The patient's goals for the shift include comfort The clinical goals for the shift include vss Over the shift, the patient did not make progress toward the following goals. Barriers to progression include . Recommendations to address these barriers include . Normal [facility] 30 The patient is Moderately Stable [...] injury: Assess patient frequently for physical needs [place] fall precautions as indicated by assessment Identify [...] overall improvement and discharge Normal [facility] ANTI-XA (HEPARIN LEVEL)on HEPARIN UNFRACTIONATED (U/ML) IN PPP BY CHROMOGENIC METHOD <0.10 Invalid Interpretation Code 0.3-0.7 [facility] Comment on above: Order Comment: Check anti-Xa level every 6 hours while on heparin infusion, or per protocol. Result Comment: Metamora roxaban and Apixaban will interfere with the anti Xa assay used to monitor UFH and LMWH. Performed By: #### L [id number] #### [facility] ([facility]) [address] [place] [address] HEPARIN UNFRACTIONATED (U/ML) IN PPP BY CHROMOGENIC METHOD <0.10 Invalid Interpretation Code 0.3-0.7 [facility] Comment on above: Order Comment: Check anti-Xa level every 6 hours while on heparin infusion, or per protocol. Result Comment: Metamora roxaban and Apixaban will interfere with the anti Xa assay used to monitor UFH and LMWH. Performed By: #### L [id number] #### [facility] ([facility]) [address] [place] [address] APTTon 06-05-2023 ACTIVATED PARTIAL THROMBOPLASTIN TIME IN PPP BY COAGULATION ASSAY 38.8 Seconds High 25.0-35.0 [facility] Comment on above: Result Comment: Clin ical significance of the APTT is questionable in the presence of heparin. Performed By: #### L [id number] #### [facility] ([facility]) [address] [place] [address] B-TYPE NATRIURETIC PEPTIDEon 06-05-2023 Natriuretic peptide B (Bld) [Mass/Vol] 136 pg/mL High 0-100 [facility] Comment on above: Performed By: #### L [id number] #### [facility] ([facility]) [address] [place] [address] BLOOD CULTUREon 06-05-2023 Bacteria identified Cx Nom (Bld) No growth at 5 days Normal [facility] Comment on above: Performed By: #### L [id number] ####[facility] ([facility])[address] [place] [address] Order Comment: From a different site than #1. CBC WITH AUTO DIFFERENTIALon 06-05-2023 Basophils (Bld) [#/Vol] 0.05 10*3/uL Normal 0.00-0.20 [facility] Comment on above: Performed By: #### L [id number] #### [facility] ([facility]) [address] [place] [address] Basophils/100 WBC (Bld) 0.3 % Normal 0.0-1.0 [facility] Comment on above: Performed By: #### L [id number] #### [facility] ([facility]) [address] [place] [address] Eosinophils (Bld) [#/Vol] 0.02 10*3/uL Normal 0.00-0.50 [facility] Comment on above: Performed By: #### L [id number] #### [facility] ([facility]) [address] [place] [address] Eosinophils/100 WBC (Bld) 0.1 % Normal 0.0-6.0 [facility] Comment on above: Performed By: #### L [id number] #### [facility] ([facility]) [address] [place] [address] Erythrocyte distribution width (RBC) [Ratio] 13.3 % Normal 11.5-15.0 [facility] Comment on above: Performed By: #### L [id number] #### [facility] ([facility]) [address] [place] [address] ERYTHROCYTE MEAN CORPUSCULAR HEMOGLOBIN CONCENTRATION (G/DL) BY AUTOMATED 32.4 g/dL Normal 32.0-35.0 [facility] Comment on above: Performed By: #### L [id number] #### [facility] ([facility]) [address] [place] [address] Hematocrit (Bld) [Volume fraction] 35.8 % Low 36.0-48.0 [facility] Comment on above: Performed By: #### L [id number] #### [facility] ([facility]) [address] [place] [address] Hemoglobin (Bld) [Mass/Vol] 11.6 g/dL Low 12.0-15.0 [facility] Comment on above: Performed By: #### L [id number] #### [facility] ([facility]) [address] [place] [address] Immature granulocytes (Bld) [#/Vol] 0.17 10*3/uL Normal 0.00-0.20 [facility] Comment on above: Performed By: #### L [id number] #### [facility] ([facility]) [address] [address] Immature granulocytes/100 WBC (Bld) 1.0 % Normal 0.0-1.0 [facility] Comment on above: Performed By: #### L [id number] #### [facility] ([facility]) [address] [place] [address] Lymphocytes (Bld) [#/Vol] 0.80 10*3/uL Low 1.20-4.00 [facility] Comment on above: Performed By: #### L [id number] #### [facility] ([facility]) [address] [address] Lymphocytes/100 WBC (Bld) 4.6 % Low 20.0-45.0 [facility] Comment on above: Performed By: #### L [id number] #### [facility] ([facility]) [address] [address] MCH (RBC) [Entitic mass] 28.3 pg Normal 27.0-33.0 [facility] Comment on above: Performed By: #### L [id number] #### [facility] [address] [address] MCV (RBC) [Entitic vol] 87.3 fL Normal 82.0-98.0 [facility] Comment on above: Performed By: #### L [id number] #### [facility] [address] [place] [address] Monocytes (Bld) [#/Vol] 0.78 10*3/uL Normal 0.10-1.00 [facility] Comment on above: Performed By: #### L [id number] #### [facility] ([facility]) [address] [place] [address] Monocytes/100 WBC (Bld) 4.5 % Low 5.0-12.0 [facility] Comment on above: Performed By: #### L [id number] #### [facility] ([facility]) [address] [place] [address] Neutrophils (Bld) [#/Vol] 15.46 10*3/uL High 1.60-7.60 [facility] Comment on above: Performed By: #### L [id number] #### [facility] [address] [place] [address] Neutrophils/100 WBC (Bld) 89.5 % High 40.0-72.0 [facility] Comment on above: Performed By: #### L [id number] #### [facility] [address] [place] [address] NRBC (PER 100 WBCS) BY AUTOMATED COUNT 0.0 % Normal 0 [facility] Comment on above: Performed By: #### L [id number] #### [facility] [address] [place] [address] PLATELETS (10*3/UL) IN BLOOD AUTOMATED COUNT 517 10*3/uL High 150-400 [facility] Comment on above: Performed By: #### L [id number] #### [facility] ([facility]) [address] [place] [address] RBC (Bld) [#/Vol] 4.10 10*6/uL Normal 3.80-5.00 [facility] Comment on above: Performed By: #### L [id number] #### [facility] ([facility]) [address] [place] [address] WBC (Bld) [#/Vol] 17.28 10*3/uL High 4.00-10.60 [facility] Comment on above: Performed By: #### L [id number] #### [facility] [address] [place] [address] COMPREHENSIVE METABOLIC PANE [place] 06-05-2023 ALANINE AMINOTRANSFERASE (SGPT) (U/L) IN SER/PLAS <3 Low 7-52 [facility] Comment on above: Performed By: #### L AB17 #### [facility] ([facility] [address] [place] [address] Albumin [Mass/Vol] 3.1 g/dL Low 3.5-5.7 [facility] Comment on above: Performed By: #### L AB17 #### [facility] ([facility] [address] [place] [address] ALP [Catalytic activity/Vol] 83 U/L Normal 34-104 [facility] Comment on above: Performed By: #### L [id number] #### [facility] ([facility]) [address] [place] [address] Anion gap [Moles/Vol] 13 mmol/L Normal 7-20 [facility] Comment on above: Performed By: #### L [id number] #### [facility] ([facility]) [address] [place] [address] AST [Catalytic activity/Vol] 14 U/L Normal 13-39 [facility] Comment on above: Performed By: #### L [id number] #### [facility] ([facility]) [address] [place] [address] Bilirubin [Mass/Vol] 0.3 mg/dL Normal 0.3-1.0 [facility] Comment on above: Performed By: #### L [id number] #### [facility] ([facility]) [address] [place] [address] Calcium [Mass/Vol] 8.9 mg/dL Normal 8.6-10.3 [facility] Comment on above: Performed By: #### L [id number] #### [facility] ([facility]) [address] [place] [address] Chloride [Moles/Vol] 98 mmol/L Normal 98-107 [facility] Comment on above: Performed By: #### L [id number] #### [facility] ([facility]) [address] [place] [address] CO2 [Moles/Vol] 25 mmol/L Normal 21-31 [facility] Comment on above: Performed By: #### L [id number] #### [facility] ([facility]) [address] [place] [address] Creatinine [Mass/Vol] 0.96 mg/dL Normal 0.60-1.20 [facility] Comment on above: Performed By: #### L [id number] #### [facility] ([facility]) [address] [place] [address] GLOMERULAR FILTRATION RATE ML/MIN/1.73 SQ M.PREDICTED 65.3 mL/min/1.73m*2 Normal >60.0 [facility] Comment on above: Result Comment: The [facility]???s estimated glomerular filtration rate (eGFR) will [...] individuals. Performed By: #### L [id number] #### [facility] ([facility] [address] [place] [address] Glucose [Mass/Vol] 93 mg/dL Normal 70-100 [facility] Comment on above: Performed By: #### L [id number] #### [facility] [address] [place] [address] Potassium [Moles/Vol] 3.3 mmol/L Low 3.5-5.1 [facility] Comment on above: Performed By: #### L [id number] #### [facility] ([facility]) [address] [place] [address] Protein [Mass/Vol] 5.7 g/dL Low 6.0-8.3 [facility] Comment on above: Performed By: #### L [id number] #### [facility] ([facility]) [address] [place] [address] Sodium [Moles/Vol] 133 mmol/L Low 136-145 [facility] Comment on above: Performed By: #### L [id number] #### [facility] ([facility]) [address] [place] [address] Urea nitrogen [Mass/Vol] 12 mg/dL Normal 7-25 [facility] Comment on above: Performed By: #### L [id number] #### [facility] ([facility]) [address] [place] [address] UREA NITROGEN/CREATININE (MASS RATIO) IN SER/PLAS 12.5 Normal [facility] Comment on above: Performed By: #### L [id number] #### [facility] ([facility]) [address] [place] [address] CONSULTon 06-05-2023 CONSULT - Attestation signed by [...] Nausea / Vomiting and Urinary symptoms to [facility], there she was found to have UTI, labs showed WBC of 17 and she was started on IV antibiotics, work up also showed high sensitive troponin of 62, She doesn't report any chest pain, or discomfort. She was started on heparin drip and was transferred here to [facility]. Today she reports no chest pain [...] colitis, Coronary artery disease, Depression, Diabetes mellitus ([facility]/HCC), Emphysema lung (CMS/HCC), Fibromyalgia, High cholesterol, Hypertension, [...] (more content not included)... Normal [facility] ETHANOLon 06-05-2023 ETHANOL (MG/DL) IN SER/PLAS <10 Normal [facility] Comment on above: Performed By: #### L [id number] #### [facility] ([facility]) [address] [place] [address] ETHANOL CALCULATED (%) Normal [facility] Comment on above: Performed By: #### L [id number] #### [facility] ([employer]) [address] [place] [address] HEMOGLOBIN A1Con 06-05-2023 Glucose [Mass/Vol] 160 mg/dL Normal [facility] Comment on above: Performed By: #### L [id number] ####[facility] ([facility])[address] [place] [address] HbA1c (Bld) [Mass fraction] 7.2 % High 4.0-6.0 [facility] Comment on above: Performed By: #### L [id number] ####[facility] ([employer])[address] [place] [address] LACTIC ACID WITH 4 HOUR REFL EXon 06-05-2023 LACTATE (MMOL/L) IN SER/PLAS 1.1 mmol/L Normal 0.5-2.2 [facility] Comment on above: Performed By: #### L [id number] #### [facility] ([facility]) [address] [place] [address] LEGIONELLA ANTIGEN, URINEon 06-05-2023 LEGIONELLA AG, UR Negative Normal NEG [facility] Comment on above: Result Comment: L. p neumophila serogroup 1 antigen not detected. A negative result does not exclude infection with Leginella pnemophila serogroup 1 nor does it rule out other microbial-caused respiratory infections of disease caused by other serogroups of Legionella pneumophila. Test Performed by [facility] [address] [place] [address] - Released 06/05/2023 12:36 Performed By: #### L [id number] #### [facility] [address] [place] [address] LIPID PANELon 06-05-2023 CHOL/HDL 1.6 mg/dL Normal [facility] Comment on above: Performed By: #### L [id number] #### [facility] ([facility]) [address] [place] [address] Cholesterol [Mass/Vol] 74 mg/dL Low 120-200 [facility] Comment on above: Performed By: #### L [id number] #### [facility] ([facility]) [address] [place] [address] Magnesium [Mass/Vol] 65 mg/dL Normal 40-149 [facility] Comment on above: Result Comment: TRIG LYCERIDE REFERENCE RANGE: 20 YEARS AND OLDER CARDIOVASCULAR RISK LESS THAN 150 mg/dL LOW RISK 150 TO 199 mg/dL BORDERLINE RISK 200 mg/dL AND GREATER HIGH RISK Performed By: #### L [id number] #### [facility] ([facility]) [address] [place] [address] Magnesium [Mass/Vol] 14 mg/dL Normal 0-160 [facility] Comment on above: Performed By: #### L [id number] #### [facility] ([facility]) [address] [place] [address] Magnesium [Mass/Vol] 47 mg/dL Normal 23-92 [facility] Comment on above: Performed By: #### L [id number] #### [facility] ([facility]) [address] [place] [address] NON HDL CHOL. (LDL+VLDL) 27 Normal [facility] Comment on above: Performed By: #### L [id number] #### [facility] ([facility]) [address] [facility] [place] [address] TOTAL VLDL-C 13 mg/dL Normal 0-40 [facility] Comment on above: Performed By: #### L [id number] #### [facility] ([facility]) [address] [facility] [place] [address] MAGNESIUMon 06-05-2023 Magnesium [Mass/Vol] 1.1 mg/dL Low 1.9-2.7 [facility] Comment on above: Performed By: #### L [id number] #### [facility] ([facility]) [address] [place] [address] PHOSPHORUSon 06-05-2023 Magnesium [Mass/Vol] 2.8 mg/dL Normal 2.5-5.0 [facility] Comment on above: Performed By: #### L [id number] #### [facility] ([facility]) [address] [facility] [place] [address] PROTIME-INRon 06-05-2023 INR IN PPP BY COAGULATION ASSAY 1.25 High 0.90-1.10 [facility] Comment on above: Result Comment: ACCC [...] 1995;[id number]. Performed By: #### L [id number] #### [facility] ([facility]) [address] [place] [address] PROTHROMBIN TIME (PT) IN PPP BY COAGULATION ASSAY 15.7 Seconds High 12.3-14.8 [facility] Comment on above: Performed By: #### L [id number] #### [facility] ([facility]) [address] [place] [address] TOXICOLOGY PANEL URINEon AMPHETAMINE+METHAMPHE TAMINE SCREEN (PRESENCE) IN URINE Negative Normal Negative [facility] Comment on above: Performed By: #### L [id number] ####[facility] ([facility])[address] [place] [address] BARBITURATES PRESENCE IN URINE BY SCREEN METHOD Negative Normal Negative [facility] Comment on above: Performed By: #### L [id number] ####[facility] ([facility])[address] [place] [address] Benzodiazepines Ql (U) Negative Normal Negative [facility] Comment on above: Performed By: #### L [id number] ####[facility] ([facility])[address] [place] [address] CANNABINOID (PRESENCE) IN URINE BY SCREEN METHOD Negative Normal Negative [facility] Comment on above: Performed By: #### L [id number] ####[facility] ([facility])[address] [place] [address] Cocaine Ql (U) Negative Normal Negative [facility] Comment on above: Performed By: #### L [id number] ####[facility] ([facility] [facility] [place] [address] METHADONE (PRESENCE) IN URINE BY SCREEN METHOD Negative Normal Negative [facility] Comment on above: Performed By: #### L [id number] ####[facility] [place] [address] OPIATES (PRESENCE) IN URINE BY SCREEN METHOD Positive Abnormal Negative [facility] Comment on above: Performed By: #### L [id number] ####[facility] ([facility])[address] [facility] [place] [address] PHENCYCLIDINE PRESENCE IN URINE BY SCREEN METHOD Negative Normal Negative [facility] Comment on above: Performed By: #### L [id number] ####[facility] ([facility])[address] [facility] [place] [address] Propoxyphene Screen Ql (U) Negative Normal Negative [facility] Comment on above: Performed By: #### L [id number] ####[facility] ([facility])[address] [facility] [place] [address] TRICYCLIC ANTIDEPRESSANTS (PRESENCE) IN URINE Negative Normal Negative [facility] Comment on above: Performed By: #### L [id number] ####[facility] ([facility])[address] [facility] [place] [address] TROPONIN Ion 06-05-2023 Troponin I.cardiac [Mass/Vol] 0.04 ng/mL Normal 0.00-0.04 [facility] Comment on above: Performed By: #### L [id number] #### [facility] ([facility]) [address] [place] [address] Troponin I.cardiac [Mass/Vol] 0.06 ng/mL High 0.00-0.04 [facility] Comment on above: Performed By: #### L [id number] ####[facility] ([facility] [facility] [place] [address] TSH3 REFLEX TO FT4on 023 THYROTROPIN (MIU/L) IN SER/PLAS BY DETECTION LIMIT <= 0.05 MIU/L 1.46 mIU/L Normal 0.34-5.60 [facility] Comment on above: Performed By: #### L [id number] ####[facility] ([facility] [place] [address] URINALYSIS MICROSCOPIC WITH REFLEX CULTUREon 06-05-2023 CASTS IN URINE Normal [facility] Comment on above: Performed By: #### L [id number] ####[facility] ([facility] [place] [address] CRYSTALS IN URINE Normal [facility] Comment on above: Performed By: #### L [id number] ####[facility] ([facility])[address] [place] [address] OTHER MICROSCOPIC ELEMENTS Normal [facility] Comment on above: Performed By: #### L [id number] ####[facility] ([facility])[address] [place] [address] RBC (#/HPF) IN URINE SEDIMENT 6-10 Abnormal None Seen [facility] Comment on above: Performed By: #### L [id number] ####[facility] ([facility])[address] [place] [address] SQUAMOUS EPITHELIAL CELLS (#/HPF) IN URINE SEDIMENT Many Abnormal None Seen, Occasional [facility] Comment on above: Performed By: #### L [id number] ####[facility] ([facility])[address] [place] [address] WBC (LEUKOCYTE) (#/HPF) IN URINE SEDIMENT >100 Abnormal None Seen [facility] Comment on above: Performed By: #### L [id number] ####[facility] ([facility])[address] [place] [address] URINALYSIS WITH REFLEX CULTU REon 06-05-2023 BILIRUBIN, TOTAL PRESENCE IN URINE Negative Normal Negative [facility] Comment on above: Performed By: #### L [id number] ####[facility] ([facility])[address] [place] [address] Clarity (U) Clear Normal Clear [facility] Comment on above: Performed By: #### L [id number] ####[facility] ([facility])[address] [place] [address] Color (U) Yellow Normal Yellow [facility] Comment on above: Performed By: #### L [id number] ####[facility] ([facility])[address] [place] [address] Glucose (U) [Mass/Vol] Negative Normal Negative [facility] Comment on above: Performed By: #### L [id number] ####[facility] ([facility])[address] [place] [address] HEMOGLOBIN PRESENCE IN URINE Moderate Abnormal Negative [facility] Comment on above: Performed By: #### L [id number] ####[facility] ([facility])[address] [place] [address] Ketones Ql (U) Trace Abnormal Negative [facility] Comment on above: Performed By: #### L [id number] ####[facility] ([facility])[address] [place] [address] LEUKOCYTE ESTERASE PRESENCE IN URINE BY TEST STRIP Large Abnormal Negative [facility] Comment on above: Performed By: #### L [id number] ####[facility] ([facility])[address] [place] [address] NITRITE PRESENCE IN URINE Positive Abnormal Negative [facility] Comment on above: Performed By: #### L [id number] ####[facility] ([facility])[address] [place] [address] pH (U) 6.0 [pH] Normal 5.0-8.0 [facility] Comment on above: Performed By: #### L [id number] ####[facility] ([facility])[address] [place] [address] Protein (U) [Mass/Vol] 30 mg/dL Abnormal Negative [facility] Comment on above: Performed By: #### L [id number] ####[facility] ([facility] [place] [address] Specific gravity (U) [Rel density] 1.012 Low 1.015-1.020 [facility] Comment on above: Performed By: #### L [id number] ####[facility] ([facility])[address] [facility] [facility] [place] [address] 30on 06-04-2023 30 The patient is Moderately Stable - Low risk of patient condition declining or worsening The patient's goals for the shift include comfort The clinical goals for the shift include VSS Normal [facility] CT CHEST WO CONon 10-31-2022 CT [...] by: MIGUE REYNOSO Date: 2022-10-31 17:34 Normal [facility] HEMOGLOBINon 10-31-2022 Hemoglobin (Bld) [Mass/Vol] 11.8 g/dL Critically low 12.0-16.0 [facility] Comment on above: Performed By: #### C VDTB #### [facility] [address] [address] [address] Kayley GENAOon 10-10-2022 Urea nitrogen [Mass/Vol] 13.0 mg/dL Normal 7.0-18.0 [facility] Comment on above: Performed By: #### L DH #### [facility] [address] [place] [address] Dr. Kayley Hatfield CALCIUMon 10-10-2022 Calcium [Mass/Vol] 9.7 mg/dL Normal 8.5-10.1 [facility] Comment on above: Performed By: #### L DH #### [facility] [address] [place] [address] Dr. Kayley Hatfield CREATININEon 10-10-2022 Creatinine [Mass/Vol] 1.19 mg/dL Critically high 0.55-1.02 [facility] Comment on above: Performed By: #### L DH #### [facility] [address] [place] [address] Dr. Kayley Hatfield EGFR-AF CITIZEN [place] 55 mL/min/1.73m2 Critically low >=60 [facility] Comment on above: Performed By: #### L DH #### [facility] [address] [place] [address] Dr. Kayley Hatfield EGFR-NON AF CITIZEN OF [place] 46 mL/min/1.73m2 Critically low >=60 [facility] Comment on above: Performed By: #### L DH #### [facility] [address] [place] [address] Dr. Kayley Hatfield CRPon 10-10-2022 CRP [Mass/Vol] mg/L Normal <=1.0 [facility] Comment on above: Performed By: #### L DH #### [facility] [address] [place] [address] Dr. Kayley Hatfield MAGNESIUMon 10-10-2022 Magnesium [Mass/Vol] 1.7 mg/dL Critically low 1.8-2.4 [facility] Comment on above: Performed By: #### L DH #### [facility] [address] [place] [address] Dr. Kayley Hatfield PHOSPHORUSon 10-10-2022 Phosphate [Mass/Vol] 4.0 mg/dL Normal 2.6-4.7 [facility] Comment on above: Performed By: #### L DH #### [facility] [address] [place] [address] Dr. Kayley Hat[facility] 25 mm/hr Normal <=30 [facility] Comment on above: Performed By: #### P RTELEC #### [facility] [address] [place] [address] Dr. Kayley Hatfield CBC AUTO DIFFon 05-01-2022 BASO # 0.1 103/ul Normal 0.0-0.1 [facility] Comment on above: Performed By: #### P RBC #### [facility] [address] [place] [address] Dr. Kayley Hatfield Basophils/100 WBC (Bld) 0.5 % Normal 0.2-2.0 [facility] Comment on above: Performed By: #### P RBC #### [facility] [address] [place] [address] Dr. Kayley Hatfield EO # 0.2 103/ul Normal 0.0-0.7 [facility] Comment on above: Performed By: #### P RBC #### [facility] [address] [place] [address] Dr. Kayley Hatfield Eosinophils/100 WBC (Bld) 1.2 % Normal 0.9-7.0 [facility] Comment on above: Performed By: #### P RBC #### [facility] [address] [place] [address] Dr. Kayley Hatfield Erythrocyte distribution width (RBC) [Ratio] 14.9 % Normal 11.0-15.0 [facility] Comment on above: Performed By: #### P RBC #### [facility] [address] [place] [address] Dr. Kayley Hatfield Hematocrit (Bld) [Volume fraction] 34.2 % Critically low 36.0-48.0 [facility] Comment on above: Performed By: #### P RBC #### [facility] [address] [place] [address] Dr. Kayley Hatfield Hemoglobin (Bld) [Mass/Vol] 10.3 g/dL Critically low 12.0-16.0 [facility] Comment on above: Performed By: #### P RBC #### [facility] [address] [address] [address] Kayley Hatfield IG # 0.19 10e3/ul Critically high 0.00-0.03 [facility] Comment on above: Performed By: #### P RBC #### [facility] [address] [address] [address] Kayley Hatfield IG % 1.3 % Critically high 0.0-0.5 [facility] Comment on above: Performed By: #### P RBC #### [facility] [address] [place] [address] Dr. Kayley Hatfield LYMPH # 1.1 103/ul Critically low 1.2-3.8 [facility] Comment on above: Performed By: #### P RBC #### [facility] [address] [place] [address] Dr. Kayley Hatfield Lymphocytes/100 WBC (Bld) 7.3 % Critically low 20.5-60.0 [facility] Comment on above: Performed By: #### P RBC #### [facility] [address] [place] [address] Dr. Kayley Hatfield MANUAL DIFF REQ NO Normal [facility] Comment on above: Performed By: #### P RBC #### [facility] [address] [place] [address] Dr. Kayley Hatfield MCH (RBC) [Entitic mass] 28.4 pg Normal 26.7-34.0 [facility] Comment on above: Performed By: #### P RBC #### [facility] [address] [place] [address] Dr. Kayley Hatfield MCHC (RBC) [Mass/Vol] 30.1 g/dL Normal 29.9-35.2 [facility] Comment on above: Performed By: #### P RBC #### [facility] [address] [place] [address] Dr. Kayley Hatfield MCV (RBC) [Entitic vol] 94.2 fL Normal 81.0-99.0 [facility] Comment on above: Performed By: #### P RBC #### [facility] [address] [place] [address] Dr. Kayley Hatfield MONO # 0.6 103/ul Normal 0.3-0.8 [facility] Comment on above: Performed By: #### P RBC #### [facility] [address] [place] [address] Dr. Kayley Hatfield Monocytes/100 WBC (Bld) 4.0 % Normal 1.7-12.0 [facility] Comment on above: Performed By: #### P RBC #### [facility] [address] [place] [address] Dr. Kayley Hatfield NEUT # 12.5 103/ul Critically high 1.4-6.5 [facility] Comment on above: Performed By: #### P RBC #### [facility] [address] [place] [address] Dr. Kayley Hatfield Neutrophils/100 WBC (Bld) 85.7 % Critically high 43.0-75.0 [facility] Comment on above: Performed By: #### P RBC #### [facility] [address] [place] [address] Dr. Kayley Hatfield Platelet mean volume (Bld) [Entitic vol] 8.5 fL Critically low 9.5-13.5 [facility] Comment on above: Performed By: #### P RBC #### [facility] [address] [place] [address] Dr. Kayley Hatfield PLT 574 103/ul Critically high 150-450 [facility] Comment on above: Performed By: #### P RBC #### [facility] [address] [place] [address] Dr. Kayley Hatfield RBC 3.63 106/ul Critically low 4.20-5.40 [facility] Comment on above: Performed By: #### P RBC #### [facility] [address] [place] [address] Dr. Kayley Hatfield WBC 14.6 103/ul Critically high 4.0-11.0 [facility] Comment on above: Performed By: #### P RBC #### [facility] [address] [place] [address] Dr. Kayley Hatfield MAGNESIUMon 05-01-2022 Magnesium [Mass/Vol] 2.1 mg/dL Normal 1.8-2.4 [facility] Comment on above: Performed By: #### O BSCRN #### [facility] [address] [place] [address] Dr. Kayley Hatfield PROF CHEM 8 (BAS METB)on Anion gap [Moles/Vol] 8.6 mmol/L Normal [facility] Comment on above: Performed By: #### O BSCRN #### [facility] [address] [place] [address] Dr. Kayley Hatfield Calcium [Mass/Vol] 9.0 mg/dL Normal 8.5-10.1 [facility] Comment on above: Performed By: #### O BSCRN #### [facility] [address] [place] [address] Dr. Kayley Hatfield Chloride [Moles/Vol] 101 mmol/L Normal 98-107 [facility] Comment on above: Performed By: #### O BSCRN #### [facility] [address] [place] [address] Dr. Kayley Hatfield CO2 [Moles/Vol] 33.0 mmol/L Critically high 21.0-32.0 [facility] Comment on above: Performed By: #### O BSCRN #### [facility] [address] [place] [address] Dr. Kayley Hatfield Creatinine [Mass/Vol] 0.94 mg/dL Normal 0.55-1.02 [facility] Comment on above: Performed By: #### O BSCRN #### [facility] [address] [place] [address] Dr. Kayley Hatfield EGFR-AF CITIZEN [place] >60 Normal >=60 [facility] Comment on above: Performed By: #### O BSCRN #### [facility] [address] [place] [address] Dr. Kayley Hatfield EGFR-NON AF CITIZEN OF [place] >60 Normal >=60 [facility] Comment on above: Performed By: #### O BSCRN #### [facility] [address] [address] [address] Kayley Hatfield Glucose [Mass/Vol] 143 mg/dL Critically high 74-[address] [facility] Comment on above: Performed By: #### O BSCRN #### [facility] [address] [address] [address] Kayley Hatfield Potassium [Moles/Vol] 4.6 mmol/L Normal 3.5-5.1 [facility] Comment on above: Performed By: #### O BSCRN #### [facility] [address] [address] [address] Kayley Hatfield Sodium [Moles/Vol] 138 mmol/L Normal 136-145 [facility] Comment on above: Performed By: #### O BSCRN #### [facility] [address] [address] [address] Kayley Hatfield Urea nitrogen [Mass/Vol] 15.0 mg/dL Normal 7.0-18.0 [facility] Comment on above: Performed By: #### O BSCRN #### [facility] [address] [place] [address] Dr. Kayley Hatfield Urea nitrogen/Creatinine [Mass ratio] 16.0 mg/mg Normal [facility] Comment on above: Performed By: #### O BSCRN #### [facility] [address] [address] [address] Kayley Hatfield CBC AUTO DIFFon 04-26-2022 BASO # 0.1 103/ul Normal 0.0-0.1 [facility] Comment on above: Performed By: #### P RBC #### [facility] [address] [place] [address] Dr. Kayley Hatfield Basophils/100 WBC (Bld) 0.5 % Normal 0.2-2.0 [facility] Comment on above: Performed By: #### P RBC #### [facility] [address] [address] [address] Kayley Hatfield EO # 0.2 103/ul Normal 0.0-0.7 [facility] Comment on above: Performed By: #### P RBC #### [facility] [address] [place] [address] Dr. Kayley Hatfield Eosinophils/100 WBC (Bld) 1.8 % Normal 0.9-7.0 [facility] Comment on above: Performed By: #### P RBC #### [facility] [address] [place] [address] Dr. Kayley Hatfield Erythrocyte distribution width (RBC) [Ratio] 14.7 % Normal 11.0-15.0 [facility] Comment on above: Performed By: #### P RBC #### [facility] [address] [place] [address] Dr. Kayley Hatfield Hematocrit (Bld) [Volume fraction] 32.0 % Critically low 36.0-48.0 [facility] Comment on above: Performed By: #### P RBC #### [facility] [address] [place] [address] Dr. Kayley Hatfield Hemoglobin (Bld) [Mass/Vol] 9.9 g/dL Critically low 12.0-16.0 [facility] Comment on above: Performed By: #### P RBC #### [facility] [address] [place] [address] Dr. Kayley Hatfield IG # 0.07 10e3/ul Critically high 0.00-0.03 The [facility] Comment on above: Performed By: #### P RBC #### [facility] [address] [place] [address] Dr. Kayley Hatfield IG % 0.6 % Critically high 0.0-0.5 The [facility] Comment on above: Performed By: #### P RBC #### [facility] [address] [place] [address] Dr. Kayley Hatfield LYMPH # 1.2 103/ul Normal 1.2-3.8 [facility] Comment on above: Performed By: #### P RBC #### [facility] [address] [place] [address] Dr. Kayley Hatfield Lymphocytes/100 WBC (Bld) 10.9 % Critically low 20.5-60.0 [facility] Comment on above: Performed By: #### P RBC #### [facility] [address] [place] [address] Dr. Kayley Hatfield MANUAL DIFF REQ NO Normal The [facility] Comment on above: Performed By: #### P RBC #### [facility] [address] [place] [address] Dr. Kayley Hatfield MCH (RBC) [Entitic mass] 28.4 pg Normal 26.7-34.0 [facility] Comment on above: Performed By: #### P RBC #### [facility] [address] [place] [address] Dr. Kayley Hatfield MCHC (RBC) [Mass/Vol] 30.9 g/dL Normal 29.9-35.2 [facility] Comment on above: Performed By: #### P RBC #### [facility] [address] [place] [address] Dr. Kayley Hatfield MCV (RBC) [Entitic vol] 92.0 fL Normal 81.0-99.0 [facility] Comment on above: Performed By: #### P RBC #### [facility] [address] [place] [address] Dr. Kayley Hatfield MONO # 1.4 103/ul Critically high 0.3-0.8 The [facility] Comment on above: Performed By: #### P RBC #### [facility] [address] [place] [address] Dr. Kayley Hatfield Monocytes/100 WBC (Bld) 11.9 % Normal 1.7-12.0 [facility] Comment on above: Performed By: #### P RBC #### [facility] [address] [place] [address] Dr. Kayley Hatfield NEUT # 8.4 103/ul Critically high 1.4-6.5 The [facility] Comment on above: Performed By: #### P RBC #### [facility] [address] [place] [address] Dr. Kayley Hatfield Neutrophils/100 WBC (Bld) 74.3 % Normal 43.0-75.0 [facility] Comment on above: Performed By: #### P RBC #### [facility] [address] [address] [address] Kayley Hatfield Platelet mean volume (Bld) [Entitic vol] 8.8 fL Critically low 9.5-13.5 [facility] Comment on above: Performed By: #### P RBC #### [facility] [address] [address] [address] Kayley Hatfield PLT 953 103/ul Critically high 150-450 [facility] Comment on above: Performed By: #### P RBC #### [facility] [address] [place] [address] Dr. Kayley Hatfield RBC 3.48 106/ul Critically low 4.20-5.40 [facility] Comment on above: Performed By: #### P RBC #### [facility] [address] [address] [address] Kayley Hatfield WBC 11.3 103/ul Critically high 4.0-11.0 [facility] Comment on above: Performed By: #### P RBC #### [facility] [address] [place] [address] Dr. Kayley Hatfield POINT OF CARE GLUCOSEon 04-08 Glucose [Mass/Vol] 225 mg/dL Critically high 74-106 [facility] Comment on above: Performed By: #### B [id number] #### [facility] [address] [place] [address] Dr. Kayley Hatfield PROF CHEM 8 (BAS METB)on Anion gap [Moles/Vol] 10.7 mmol/L Normal [facility] Comment on above: Performed By: #### P RBC #### [facility] [address] [place] [address] Dr. Kayley Hatfield Calcium [Mass/Vol] 9.2 mg/dL Normal 8.5-10.1 [facility] Comment on above: Performed By: #### P RBC #### [facility] [address] [address] [address] Kayley Hatfield Chloride [Moles/Vol] 103 mmol/L Normal 98-107 [facility] Comment on above: Performed By: #### P RBC #### [facility] [address] [address] [address] Kayley Hatfield CO2 [Moles/Vol] 29.2 mmol/L Normal 21.0-32.0 [facility] Comment on above: Performed By: #### P RBC #### [facility] [address] [address] [address] Kayley Hatfield Creatinine [Mass/Vol] 0.85 mg/dL Normal 0.55-1.02 [facility] Comment on above: Performed By: #### P RBC #### [facility] [address] [place] [address] Dr. Kayley Hatfield EGFR-AF CITIZ[place] >60 Normal >=60 [facility] Comment on above: Performed By: #### P RBC #### [facility] [address] [address] [address] Kayley Hatfield EGFR-NON AF CITIZEN OF [place] >60 Normal >=60 [facility] Comment on above: Performed By: #### P RBC #### [facility] [address] [address] [address] Kayley Hatfield Glucose [Mass/Vol] 81 mg/dL Normal 74-106 [facility] Comment on above: Performed By: #### P RBC #### [facility] [address] [address] [address] Kayley Hatfield Potassium [Moles/Vol] 3.9 mmol/L Normal 3.5-5.1 [facility] Comment on above: Performed By: #### P RBC #### [facility] [address] [place] [address] Dr. Kayley Hatfield Sodium [Moles/Vol] 139 mmol/L Normal 136-145 [facility] Comment on above: Performed By: #### P RBC #### [facility] [address] [address] [address] Kayley Hatfield Urea nitrogen [Mass/Vol] 9.0 mg/dL Normal 7.0-18.0 [facility] Comment on above: Performed By: #### P RBC #### [facility] [address] [address] [address] Kayley Hatfield Urea nitrogen/Creatinine [Mass ratio] 10.6 mg/mg Normal [facility] Comment on above: Performed By: #### P RBC #### [facility] [address] [address] [address] Kayley Hatfield XR CHEST 2 Von [...] REYNOSO Date: 2022-04-26 09:59 Normal The [facility] BNPon 04-25-2022 Natriuretic peptide B (Bld) [Mass/Vol] 234.0 pg/mL Normal <=900.0 [facility] Comment on above: Performed By: #### P RTELEC #### [facility] [id number] Kayley Hatfield CBC AUTO DIFFon 04-25-2022 BASO # 0.1 103/ul Normal 0.0-0.1 [facility] Comment on above: Performed By: #### P RBC #### [facility] [address] [address] [address] Kayley Hatfield Basophils/100 WBC (Bld) 0.4 % Normal 0.2-2.0 [facility] Comment on above: Performed By: #### P RBC #### [facility] [address] [place] [address] Dr. Kayley Hatfield EO # 0.2 103/ul Normal 0.0-0.7 [facility] Comment on above: Performed By: #### P RBC #### [facility] [address] [place] [address] Dr. Kayley Hatfield Eosinophils/100 WBC (Bld) 1.0 % Normal 0.9-7.0 [facility] Comment on above: Performed By: #### P RBC #### [facility] [address] [place] [address] Dr. Kayley Hatfield Erythrocyte distribution width (RBC) [Ratio] 14.8 % Normal 11.0-15.0 [facility] Comment on above: Performed By: #### P RBC #### [facility] [address] [place] [address] Dr. Kayley Hatfield Hematocrit (Bld) [Volume fraction] 35.4 % Critically low 36.0-48.0 [facility] Comment on above: Performed By: #### P RBC #### [facility] [address] [place] [address] Dr. Kayley Hatfield Hemoglobin (Bld) [Mass/Vol] 10.9 g/dL Critically low 12.0-16.0 [facility] Comment on above: Performed By: #### P RBC #### [facility] [address] [place] [address] Dr. Kayley Hatfield IG # 0.08 10e3/ul Critically high 0.00-0.03 [facility] Comment on above: Performed By: #### P RBC #### [facility] [address] [place] [address] Dr. Kayley Hatfield IG % 0.5 % Normal 0.0-0.5 [facility] Comment on above: Performed By: #### P RBC #### [facility] [address] [place] [address] Dr. Kayley Hatfield LYMPH # 1.2 103/ul Normal 1.2-3.8 [facility] Comment on above: Performed By: #### P RBC #### [facility] [address] [address] [address] Kayley Hatfield Lymphocytes/100 WBC (Bld) 7.4 % Critically low 20.5-60.0 [facility] Comment on above: Performed By: #### P RBC #### [facility] [address] [address] [address] Kayley Hatfield MANUAL DIFF REQ NO Normal [facility] Comment on above: Performed By: #### P RBC #### [facility] [address] [address] [address] Kayley Hatfield MCH (RBC) [Entitic mass] 27.9 pg Normal 26.7-34.0 [facility] Comment on above: Performed By: #### P RBC #### [facility] [address] [place] [address] Dr. Kayley Hatfield MCHC (RBC) [Mass/Vol] 30.8 g/dL Normal 29.9-35.2 [facility] Comment on above: Performed By: #### P RBC #### [facility] [address] [place] [address] Dr. Kayley Hatfield MCV (RBC) [Entitic vol] 90.5 fL Normal 81.0-99.0 [facility] Comment on above: Performed By: #### P RBC #### [facility] [address] [place] [address] Dr. Kayley Hatfield MONO # 1.5 103/ul Critically high 0.3-0.8 The [facility] Comment on above: Performed By: #### P RBC #### [facility] [address] [place] [address] Dr. Kayley Hatfield Monocytes/100 WBC (Bld) 8.7 % Normal 1.7-12.0 [facility] Comment on above: Performed By: #### P RBC #### [facility] [address] [place] [address] Dr. Kayley Hatfield NEUT # 13.8 103/ul Critically high 1.4-6.5 [facility] Comment on above: Performed By: #### P RBC #### [facility] [address] [address] [address] Kayley Hatfield Neutrophils/100 WBC (Bld) 82.0 % Critically high 43.0-75.0 [facility] Comment on above: Performed By: #### P RBC #### [facility] [address] [address] [address] Kayley Hatfield Platelet mean volume (Bld) [Entitic vol] 8.9 fL Critically low 9.5-13.5 [facility] Comment on above: Performed By: #### P RBC #### [facility] [address] [address] [address] Kayley Hatfield PLT 1076 103/ul Critically high 150-450 [facility] Comment on above: Performed By: #### P RBC #### [facility] [address] [address] [address] Kayley Hatfield RBC 3.91 106/ul Critically low 4.20-5.40 [facility] Comment on above: Performed By: #### P RBC #### [facility] [address] [address] [address] Kayley Hatfield WBC 16.8 103/ul Critically high 4.0-11.0 [facility] Comment on above: Performed By: #### P RBC #### [facility] [address] [address] [address] HEAD WO CONon [...] MIGUE REYNOSO Date: 2022-04-25 14:59 Normal [facility] CTA CHEST WO W CONon [...] REYNOSO Date: 2022-04-25 15:18 Normal [facility] Covid-19 PCR (CVDTB)on 04-08 SARS-CoV-2 (COVID-19) RNA ELBA+probe Ql (Unsp spec) Not detected Normal NOT DETECTED [facility] Comment on above: Result Comment: [...] for this test is supported by the Court Transcriber of Health and Human Service's declaration that [...] Performed By: #### C VDTBH #### [facility] [address] [place] [address] Dr. Kayley Hatfield ER URINE PROFILEon 2 Bilirubin Ql (U) Negative Normal NEGATIVE [facility] Comment on above: Performed By: #### C VDTBH #### [facility] [address] [place] [address] Dr. Kayley Hatfield Clarity (U) CLEAR Normal CLEAR [facility] Comment on above: Performed By: #### C VDTBH #### [facility] [address] [place] [address] Dr. Kayley Hatfield Color (U) LT. YELLOW Normal YELLOW [facility] Comment on above: Performed By: #### C VDTBH #### [facility] [address] [place] [address] Dr. Kayley [place] A micrscopic examination will be performed if indicated. Normal [facility] Comment on above: Performed By: #### C VDTBH #### [facility] [address] [place] [address] Dr. Kayley Hatfield Glucose Ql (U) Negative Normal NEGATIVE [facility] Comment on above: Performed By: #### C VDTBH #### [facility] [address] [place] [address] Dr. Kayley Hatfield Hemoglobin Ql (U) TRACE-INTACT Abnormal NEGATIVE [facility] Comment on above: Performed By: #### C VDTBH #### [facility] [address] [place] [address] Dr. Kayley Hatfield Ketones Ql (U) Negative Normal NEGATIVE [facility] Comment on above: Performed By: #### C VDTBH #### [facility] [address] [place] [address] Dr. Kayley Hatfield LEUKOCYTES Negative Normal NEGATIVE [facility] Comment on above: Performed By: #### C VDTBH #### [facility] [address] [place] [address] Dr. Kayley Hatfield Nitrite Ql (U) Negative Normal NEGATIVE [facility] Comment on above: Performed By: #### C VDTBH #### [facility] [address] [place] [address] Dr. Kayley Hatfield pH (U) 8.0 [pH] Normal 5-9 [facility] Comment on above: Performed By: #### C VDTBH #### [facility] [address] [place] [address] Dr. Kayley Hatfield SPEC GRAVITY 1.010 Normal 1.005-<=1.025 [facility] Comment on above: Performed By: #### C VDTBH #### [facility] [address] [place] [address] Dr. Kayley Hatfield UA PROTEIN Negative Normal NEGATIVE/ TRACE [facility] Comment on above: Performed By: #### C VDTBH #### [facility] [address] [place] [address] Dr. Kayley Hatfield UR MICRO IND INDICATED Normal [facility] Comment on above: Performed By: #### C VDTBH #### [facility] [address] [place] [address] Dr. Kayley Hatfield Urobilinogen Qn (U) 0.2 {Lu'U}/dL Normal 0.2 - 1. 0 [facility] Comment on above: Performed By: #### C VDTBH #### [facility] [address] [place] [address] Dr. Kayley Hatfield LACTATE/LACTIC ACIDon 2021 Lactate [Moles/Vol] 1.1 mmol/L Normal 0.4-1.9 [facility] Comment on above: Performed By: #### P RTELEC #### [facility] [address] [place] [address] Dr. Kayley Hatfield PH VENOUS BLOODon 04-25-2022 PCO2 VENOUS 54.5 mmHg Critically high 40.0-52.0 [facility] Comment on above: Performed By: #### L DH #### [facility] [address] [place] [address] Dr. Kayley Hatfield pH VENOUS 7.385 Normal 7.330-7.430 [facility] Comment on above: Performed By: #### L DH #### [facility] [address] [place] [address] Dr. Kayley Hatfield POINT OF CARE GLUCOSEon 04-08 Glucose [Mass/Vol] 91 mg/dL Normal 74-106 [facility] Comment on above: Performed By: #### O BSCRN #### [facility] [address] [place] [address] Dr. Kayley Hatfield Glucose [Mass/Vol] 116 mg/dL Critically high 74-106 [facility] Comment on above: Performed By: #### O BSCRN #### [facility] [address] [place] [address] Dr. Kayley Hatfield PROF 14(COMP METB)on 022 Albumin [Mass/Vol] 2.7 g/dL Critically low 3.4-5.0 Th e [facility] Comment on above: Performed By: #### O BSCRN #### [facility] [address] [place] [address] Dr. Kayley Hatfield Albumin/Globulin [Mass ratio] 0.6 {ratio} Normal [facility] Comment on above: Performed By: #### O BSCRN #### [facility] [address] [address] [address] Kalyey Hatfield ALP [Catalytic activity/Vol] 132 U/L Critically high 46-116 [facility] Comment on above: Performed By: #### O BSCRN #### [facility] [address] [place] [address] Dr. Kayley Hatfield ALT [Catalytic activity/Vol] 21 U/L Normal 14-59 [facility] Comment on above: Performed By: #### O BSCRN #### [facility] [address] [place] [address] Dr. Kayley Hatfield Anion gap [Moles/Vol] 8.1 mmol/L Normal [facility] Comment on above: Performed By: #### O BSCRN #### [facility] [address] [place] [address] Dr. Kayley Hatfield AST [Catalytic activity/Vol] 23 U/L Normal 15-37 [facility] Comment on above: Performed By: #### O BSCRN #### [facility] [address] [place] [address] Dr. Kayley Hatfield Bilirubin [Mass/Vol] 0.3 mg/dL Normal 0.2-1.0 [facility] Comment on above: Performed By: #### O BSCRN #### [facility] [address] [place] [address] Dr. Kayley Hatfield Calcium [Mass/Vol] 9.4 mg/dL Normal 8.5-10.1 [facility] Comment on above: Performed By: #### O BSCRN #### [facility] [address] [place] [address] Dr. Kayley Hatfield Chloride [Moles/Vol] 100 mmol/L Normal 98-107 [facility] Comment on above: Performed By: #### O BSCRN #### [facility] [address] [address] [address] Kayley Hatfield CO2 [Moles/Vol] 31.8 mmol/L Normal 21.0-32.0 [facility] Comment on above: Performed By: #### O BSCRN #### [facility] [address] [address] [address] Kayley Hatfield Creatinine [Mass/Vol] 0.79 mg/dL Normal 0.55-1.02 [facility] Comment on above: Performed By: #### O BSCRN #### [facility] [address] [place] [address] Dr. Kayley Hatfield EGFR-AF CITIZEN [place] >60 Normal >=60 [facility] Comment on above: Performed By: #### O BSCRN #### [facility] [address] [address] [address] Kayley Hatfield EGFR-NON AF CITIZEN OF [place] >60 Normal >=60 [facility] Comment on above: Performed By: #### O BSCRN #### [facility] [address] [place] [address] Dr. Kayley Hatfield Globulin (S) [Mass/Vol] 4.2 g/dL Normal [facility] Comment on above: Performed By: #### O BSCRN #### [facility] [address] [address] [address] Kayley Hatfield Glucose [Mass/Vol] 134 mg/dL Critically high 74-106 [facility] Comment on above: Performed By: #### O BSCRN #### [facility] [address] [address] [address] Kayley Hatfield Potassium [Moles/Vol] 3.9 mmol/L Normal 3.5-5.1 [facility] Comment on above: Performed By: #### O BSCRN #### [facility] [address] [place] [address] Dr. Kayley Hatfield Protein [Mass/Vol] 6.9 g/dL Normal 6.4-8.2 [facility] Comment on above: Performed By: #### O BSCRN #### [facility] [address] [place] [address] Dr. Kayley Hatfield Sodium [Moles/Vol] 136 mmol/L Normal 136-145 [facility] Comment on above: Performed By: #### O BSCRN #### [facility] [address] [place] [address] Dr. Kayley [place] Urea nitrogen [Mass/Vol] 10.0 mg/dL Normal 7.0-18.0 [facility] Comment on above: Performed By: #### O BSCRN #### [facility] [address] [place] [address] Dr. Kayley [place] Urea nitrogen/Creatinine [Mass ratio] 12.7 mg/mg Normal [facility] Comment on above: Performed By: #### O BSCRN #### [facility] [address] [place] [address] Dr. Kayley [place] PROTIMEon 04-25-2022 INR Coag (PPP) [Relative time] 1.08 {INR} Normal [facility] Comment on above: Performed By: #### P RTELEC #### [facility] [address] [place] [address] Dr. Kayley [place] INR GUIDELINES SEE BELOW Normal [facility] Comment on above: Result Comment: JOAQUIM RED INR: 2.0 - 3.0 CONDITIONS NOT LISTED BELOW 2.5 - 3.5 FOR PROSTHETIC HEART VALVE REPLACEMENT 2.5 - 3.5 RECURRENT THROMBOSIS Performed By: #### P RTELEC #### [facility] [address] [place] [address] Dr. Kayley [place] PT Coag (PPP) [Time] 11.6 s Normal 9.0-11.6 [facility] Comment on above: Performed By: #### P RTELEC #### [facility] [address] [place] [address] Dr. Kayley [place] PTTon 04-25-2022 aPTT Coag (Bld) [Time] 31.1 s Normal 22.3-36.2 [facility] Comment on above: Performed By: #### P RTELEC #### [facility] [address] [place] [address] Dr. Kayley [place] TROPONIN, HIGH SENSITIVITYon 04-25-2022 HSTROP 9.6 pg/mL Normal 4.0-51.3 [facility] Comment on above: Result Comment: CUT- OFF POINTS HAVE BEEN ESTABLISHED BASED ON THE FOURTH UNIVERSAL DEFINITIONS OF MYOCARDIAL INFARCTION. THE UPPER REFERENCE LIMIT (URL) OF TROPONIN, DEFINED THE 99TH PERCENTILE OF cTnI DISTRIBUTION IN A REFERENCE POPULATION, HAS BEEN CONFIRMED THE DECISION THRESHOLD FOR VA DIAGNOSIS. Performed By: #### P RTELEC #### [facility] [address] [place] [address] Dr. Kayley [place] TSHon 04-25-2022 TSH 1.431 uIU/mL Normal 0.358-3.740 [facility] Comment on above: Performed By: #### P RTELEC #### [facility] [address] [place] [address] Dr. Kayley [place] URINE MICROSCOPIC ONLYon BACTERIA NONE SEEN Normal NONE SEEN [facility] Comment on above: Performed By: #### C VDTBH #### [facility] [address] [place] [address] Dr. Kayley [place] Bacteria identified Cx Nom (U) NOT INDICATED Normal [facility] Comment on above: Performed By: #### C VDTBH #### [facility] [address] [place] [address] Dr. Kayley [place] CAST NONE SEEN Normal NONE SEEN [facility] Comment on above: Performed By: #### C VDTBH #### [facility] [address] [place] [address] Dr. Kayley [place] Crystals LM Nom (Urine sed) NONE SEEN Normal NONE SEEN [facility] Comment on above: Performed By: #### C VDTBH #### [facility] [address] [place] [address] Dr. Kayley [place] Epithelial cells LM Ql (Urine sed) FEW Abnormal NONE SEEN /RARE [facility] Comment on above: Performed By: #### C VDTBH #### [facility] [address] [place] [address] Dr. Kayley [place] MUCOUS NONE SEEN Normal NONE SEEN [facility] Comment on above: Performed By: #### C VDTBH #### [facility] [address] [place] [address] Dr. Kayley [place] RBC 2-5 Abnormal 0-2 [facility] Comment on above: Performed By: #### C VDTBH #### [facility] [address] [place] [address] Dr. Kayley [place] WBC NONE SEEN Normal NONE SEEN [facility] Comment on above: Performed By: #### C VDTBH #### [facility] [address] [place] [address] Dr. Kayley [place] IMMUNOFIXATION(KENNETH),PROTEIN ELEC(PE),[facility] 03-31-2022 Albumin [Mass/Vol] 3.6 g/dL Normal 2.9-4.4 [facility] Comment on above: Performed By: #### B LDCX1 #### [facility] [address] [place] [address] Dr. Kayley [place] Albumin/Globulin [Mass ratio] 1.6 {ratio} Normal 0.7-1.7 [facility] Comment on above: Performed By: #### B LDCX1 #### [facility] [address] [place] [address] Dr. Kayley [place] Nidyh-7-Ururudmh 0.3 g/dL Normal 0.0-0.4 [facility] Comment on above: Performed By: #### B LDCX1 #### [facility] [address] [place] [address] Dr. Kayley [place] Afnrn-8-Vpgzzxng 0.8 g/dL Normal 0.4-1.0 [facility] Comment on above: Performed By: #### B LDCX1 #### [facility] [address] [place] [address] Dr. Kayley [place]field Beta Globulin 1.0 g/dL Normal 0.7-1.[address] [facility] Comment on above: Performed By: #### B LDCX1 #### [facility] [address] [address] [address] Kayley Hatfield Free Marie Lt Chains,S 16.0 mg/L Normal 3.3-19.4 [facility] Comment on above: Performed By: #### B LDCX1 #### [facility] [address] [address] [address] Kayley [place]field Free Lambda Lt Chains,S 10.1 mg/L Normal 5.7-26.3 [facility] Comment on above: Performed By: #### B LDCX1 #### [facility] [address] [place] [address] Dr. Kayley Hatfield Gamma Globulin 0.4 g/dL Normal 0.4-1.8 [facility] Comment on above: Performed By: #### B LDCX1 #### [facility] [address] [place] [address] Dr. Kayley [place] Globulin (S) [Mass/Vol] 2.4 g/dL Normal 2.2-3.9 [facility] Comment on above: Performed By: #### B LDCX1 #### [facility] [address] [place] [address] Dr. Kayley [place] Immunofixation Result, Serum Comment Normal [facility] Comment on above: Result Comment: No m onoclonality detected. Performed By: #### B LDCX1 #### [facility] [address] [place] [address] Dr. Kayley [place] Immunoglobulin A, Qn, Serum 128 mg/dL Normal 87-352 [facility] Comment on above: Performed By: #### B LDCX1 #### [facility] [address] [address] [address] Kayley [place] Immunoglobulin G, Qn, Serum 487 mg/dL Critically low 586-1602 [facility] Comment on above: Performed By: #### B LDCX1 #### [facility] [address] [place] [address] Dr. Kayley [place] Immunoglobulin M, Qn, Serum 38 mg/dL Normal 26-217 [facility] Comment on above: Performed By: #### B LDCX1 #### [facility] [address] [place] [address] Dr. Kayley [place]field Marie/Lambda Ratio, S 1.58 Normal 0.26-1.65 [facility] Comment on above: Performed By: #### B LDCX1 #### [facility] [address] [place] [address] Dr. Kayley [place]field M-Sandip Not Observed Normal Not Observed [facility] Comment on above: Performed By: #### B LDCX1 #### [facility] [address] [place] [address] Dr. Kayley Hatfield PDF . Normal [facility] Comment on above: Performed By: #### B LDCX1 #### [facility] [address] [place] [address] Dr. Kayley Hatfield Please note: Comment Normal [facility] Comment on above: Result Comment: Prot ein electrophoresis scan will follow via computer, mail, or die maker delivery. Performed By: #### B LDCX1 #### [facility] [address] [place] [address] Dr. Kayley [place] Protein [Mass/Vol] 6.0 g/dL Normal 6.0-8.5 [facility] Comment on above: Performed By: #### B LDCX1 #### [facility] [address] [place] [address] Dr. Kayley Hatfield CBC AUTO DIFFon 03-30-2022 BASO # 0.1 103/ul Normal 0.0-0.1 [facility] Comment on above: Performed By: #### P RBC #### [facility] [address] [place] [address] Dr. Kayley [place] Basophils/100 WBC (Bld) 0.4 % Normal 0.2-2.0 [facility] Comment on above: Performed By: #### P RBC #### [facility] [address] [place] [address] Dr. Kayley [place]field EO # 0.2 103/ul Normal 0.0-0.7 [facility] Comment on above: Performed By: #### P RBC #### [facility] [address] [address] [address] Kayley [place] Eosinophils/100 WBC (Bld) 1.1 % Normal 0.9-7.0 [facility] Comment on above: Performed By: #### P RBC #### [facility] [address] [address] [address] Kayley [place] Erythrocyte distribution width (RBC) [Ratio] 0.0 % Critically low 11.0-15.0 [facility] Comment on above: Performed By: #### P RBC #### [facility] [address] [place] [address] Dr. Kayley [place] Hematocrit (Bld) [Volume fraction] 24.0 % Critically low 36.0-48.0 [facility] Comment on above: Performed By: #### P RBC #### [facility] [address] [place] [address] Dr. Kayley [place] Hemoglobin (Bld) [Mass/Vol] 7.2 g/dL Critically low 12.0-16.0 [facility] Comment on above: Performed By: #### P RBC #### [facility] [address] [place] [address] Dr. Kayley [place]field IG # 0.10 10e3/ul Critically high 0.00-0.03 [facility] Comment on above: Performed By: #### P RBC #### [facility] [address] [place] [address] Dr. Kayley Hatfield IG % 0.6 % Critically high 0.0-0.5 [facility] Comment on above: Performed By: #### P RBC #### [facility] [address] [place] [address] Dr. Kayley [place]field LYMPH # 1.5 103/ul Normal 1.2-3.8 [facility] Comment on above: Performed By: #### P RBC #### [facility] [address] [place] [address] Dr. Kayley Hatfield Lymphocytes/100 WBC (Bld) 9.0 % Critically low 20.5-60.0 [facility] Comment on above: Performed By: #### P RBC #### [facility] [address] [place] [address] Dr. Kayley Hatfield MANUAL DIFF REQ NO Normal The [facility] Comment on above: Performed By: #### P RBC #### [facility] [address] [place] [address] Dr. Kayley Hatfield MCH (RBC) [Entitic mass] 27.3 pg Normal 26.7-34.0 [facility] Comment on above: Performed By: #### P RBC #### [facility] [address] [place] [address] Dr. Kayley Hatfield MCHC (RBC) [Mass/Vol] 30.0 g/dL Normal 29.9-35.2 [facility] Comment on above: Performed By: #### P RBC #### [facility] [address] [place] [address] Dr. Kayley Hatfield MCV (RBC) [Entitic vol] 90.9 fL Normal 81.0-99.0 [facility] Comment on above: Performed By: #### P RBC #### [facility] [address] [place] [address] Dr. Kayley Hatfield MONO # 2.3 103/ul Critically high 0.3-0.8 The [facility] Comment on above: Performed By: #### P RBC #### [facility] [address] [place] [address] Dr. Kayley Hatfield Monocytes/100 WBC (Bld) 13.8 % Critically high 1.7-12.0 [facility] Comment on above: Performed By: #### P RBC #### [facility] [address] [place] [address] Dr. Kayley Hatfield NEUT # 12.7 103/ul Critically high 1.4-6.5 [facility] Comment on above: Performed By: #### P RBC #### [facility] [address] [place] [address] Dr. Kayley Hatfield Neutrophils/100 WBC (Bld) 75.1 % Critically high 43.0-75.0 [facility] Comment on above: Performed By: #### P RBC #### [facility] [address] [address] [address] Kayley Hatfield Platelet mean volume (Bld) [Entitic vol] 8.9 fL Critically low 9.5-13.5 [facility] Comment on above: Performed By: #### P RBC #### [facility] [address] [address] [address] Kayley Hatfield PLT 782 103/ul Critically high 150-450 The [facility] Comment on above: Performed By: #### P RBC #### [facility] [address] [address] [address] Kayley Hatfield RBC 2.64 106/ul Critically low 4.20-5.40 [facility] Comment on above: Performed By: #### P RBC #### [facility] [address] [address] [address] Kayley Hatfield WBC 16.9 103/ul Critically high 4.0-11.0 [facility] Comment on above: Performed By: #### P RBC #### [facility] [address] [address] [address] Kayley Hatfiedl PRBC LEUKOREDUCEDon 03-30-20 ABO and Rh group Nom (Bld) Cross Match Result Compatible Unit Blood Type O Pos Unit Number [id number] Status Information Transfused Product ID Red Blood Cells Product Code [id number] Cross Match Result Compatible Unit Blood Type O Pos Unit Number [id number] Status Information Transfused Product ID Red Blood Cells Product Code [id number] Normal [facility] Comment on above: Performed By: #### P RBC #### [facility] [address] [address] [address] Kayley Hatfield PROF CHEM 8 (BAS METB)on Anion gap [Moles/Vol] 6.9 mmol/L Normal [facility] Comment on above: Performed By: #### P RBC #### [facility] [address] [address] [address] Kayley Hatfield Calcium [Mass/Vol] 8.7 mg/dL Normal 8.5-10.1 [facility] Comment on above: Performed By: #### P RBC #### [facility] [address] [address] [address] Kayley Hatfield Chloride [Moles/Vol] 101 mmol/L Normal 98-107 [facility] Comment on above: Performed By: #### P RBC #### [facility] [address] [address] [address] Kayley Hatfield CO2 [Moles/Vol] 33.3 mmol/L Critically high 21.0-32.0 [facility] Comment on above: Performed By: #### P RBC #### [facility] [address] [address] [address] Kayley Hatfield Creatinine [Mass/Vol] 0.83 mg/dL Normal 0.55-1.02 [facility] Comment on above: Performed By: #### P RBC #### [facility] [address] [address] [address] Kayley Hatfield EGFR-AF CITIZEN OF [place] >60 Normal >=60 [facility] Comment on above: Performed By: #### P RBC #### [facility] [address] [address] [address] Kayley aHtfield EGFR-NON AF CITIZEN OF [place] >60 Normal >=60 [facility] Comment on above: Performed By: #### P RBC #### [facility] [address] [address] [address] Kayley Hatfield Glucose [Mass/Vol] 94 mg/dL Normal 74-106 [facility] Comment on above: Performed By: #### P RBC #### [facility] [address] [address] [address] Kayley Hatfield Potassium [Moles/Vol] 4.2 mmol/L Normal 3.5-5.1 [facility] Comment on above: Performed By: #### P RBC #### [facility] [address] [address] [address] Kayley Hatfield Sodium [Moles/Vol] 137 mmol/L Normal 136-145 [facility] Comment on above: Performed By: #### P RBC #### [facility] [address] [address] [address] Kayley Hatfield Urea nitrogen [Mass/Vol] 15.0 mg/dL Normal 7.0-18.0 [facility] Comment on above: Performed By: #### P RBC #### [facility] [address] [place] [address] Dr. Kayley Hatfield Urea nitrogen/Creatinine [Mass ratio] 18.1 mg/mg Normal [facility] Comment on above: Performed By: #### P RBC #### [facility] [address] [place] [address] Dr. Kayley Hatfield PROTEIN ELECTROPHERESISon Albumin [Mass/Vol] 3.4 g/dL Normal 2.9-4.4 [facility] Comment on above: Performed By: #### P RTELEC #### [facility] [address] [place] [address] Dr. Kayley Hatfield Albumin/Globulin [Mass ratio] 1.3 {ratio} Normal 0.7-1.7 [facility] Comment on above: Performed By: #### P RTELEC #### [facility] [address] [place] [address] Dr. Kayley Hatfield Jkoer-7-Lnvxntsp 0.3 g/dL Normal 0.0-0.4 [facility] Comment on above: Performed By: #### P RTELEC #### [facility] [address] [place] [address] Dr. Kayley Hatfield Xgocf-3-Phyyoati 0.8 g/dL Normal 0.4-1.0 [facility] Comment on above: Performed By: #### P RTELEC #### [facility] [address] [place] [address] Dr. Kayley Hatfield Beta Globulin 1.0 g/dL Normal 0.7-1.[address] [facility] Comment on above: Performed By: #### P RTELEC #### [facility] [address] [place] [address] Dr. Kayley Hatfield Gamma Globulin 0.5 g/dL Normal 0.4-1.8 [facility] Comment on above: Performed By: #### P RTELEC #### [facility] [address] [address] [address] Kayley Hatfield Globulin (S) [Mass/Vol] 2.6 g/dL Normal 2.2-3.9 [facility] Comment on above: Performed By: #### P RTELEC #### [facility] [address] [place] [address] Dr. Kayley Hatfield M-Sandip Not Observed Normal Not Observed [facility] Comment on above: Performed By: #### P RTELEC #### [facility] [address] [place] [address] Dr. Kayley Hatfield PDF . Normal [facility] Comment on above: Performed By: #### P RTELEC #### [facility] [address] [place] [address] Dr. Kayley Hatfield Please note: Comment Normal [facility] Comment on above: Result Comment: Prot ein electrophoresis scan will follow via computer, mail, or die maker delivery. Performed By: #### P RTELEC #### [facility] [address] [place] [address] Dr. Kayley Hatfield Protein [Mass/Vol] 6.0 g/dL Normal 6.0-8.5 [facility] Comment on above: Performed By: #### P RTELEC #### [facility] [address] [place] [address] Dr. Kayley Hatfield XR CHEST 1 Von [...] MOORE Date: 2022-03-30 06:17 Normal [facility] CBC W MANUAL DIFFon 03-29-20 22 ANISOCYTOSIS 2+ Normal [facility] Comment on above: Performed By: #### C VDTBH #### [facility] [address] [place] [address] Dr. Kayley Hatfield ATYPICAL LYMPH # Normal [facility] Comment on above: Performed By: #### C VDTBH #### [facility] [address] [place] [address] Dr. Kayley Hatfield ATYPICAL LYMPH % Normal [facility] Comment on above: Performed By: #### C VDTBH #### [facility] [address] [place] [address] Dr. Kalyey Hatfield BAND # 0.0 103/ul Normal 0.0-0.3 [facility] Comment on above: Performed By: #### C VDTBH #### [facility] [address] [place] [address] Dr. Kayley Hatfield BAND % 0 % Normal 0-5 [facility] Comment on above: Performed By: #### C VDTBH #### [facility] [address] [place] [address] Dr. Kayley Hatfield BASOM # 0.59 103/ul Critically high 0.00-0.10 [facility] Comment on above: Performed By: #### C VDTBH #### [facility] [address] [place] [address] Dr. Kayley Hatfield BASOM % 3.0 % Critically high 0.2-2.0 The [facility] Comment on above: Performed By: #### C VDTBH #### [facility] [address] [place] [address] Dr. Kayley Hatfield BLAST # Normal [facility] Comment on above: Performed By: #### C VDTBH #### [facility] [address] [place] [address] Dr. Kayley Hatfield BLAST % Normal [facility] Comment on above: Performed By: #### C VDTBH #### [facility] [address] [address] [address] Kayley Hatfield CORRECTED WBC Normal 4.0-11.[address] [facility] Comment on above: Performed By: #### C VDTBH #### [facility] [address] [address] [address] Kayley Hatfield EOS # 0.40 103/ul Normal 0.00-0.70 [facility] Comment on above: Performed By: #### C VDTBH #### [facility] [address] [place] [address] Dr. Kayley Hatfield EOS% 2.0 % Normal 0.9-7.0 [facility] Comment on above: Performed By: #### C VDTBH #### [facility] [address] [place] [address] Dr. Kayley Hatfield HCT 31.1 % Critically low 36.0-48.0 [facility] Comment on above: Performed By: #### C VDTBH #### [facility] [address] [place] [address] Dr. Kayley Hatfield HGB 9.7 g/dl Critically low 12.0-16.0 [facility] Comment on above: Performed By: #### C VDTBH #### [facility] [address] [place] [address] Dr. Kayley Hatfield HYPOCHROMASIA 1+ Normal [facility] Comment on above: Performed By: #### C VDTBH #### [facility] [address] [place] [address] Dr. Kayley Hatfield LYMPHM # 4.75 103/ul Critically high 1.20-3.80 [facility] Comment on above: Performed By: #### C VDTBH #### [facility] [address] [place] [address] Dr. Kayley Hatfield LYMPHM% 24.0 % Normal 20.5-60.0 [facility] Comment on above: Performed By: #### C VDTBH #### [facility] [address] [place] [address] Dr. Kayley Hatfield MCH 27.0 pg Normal 26.7-34.0 [facility] Comment on above: Performed By: #### C VDTBH #### [facility] [address] [address] [address] Kayley Hatfield MCHC 31.2 g/dl Normal 29.9-35.2 [facility] Comment on above: Performed By: #### C VDTBH #### [facility] [address] [address] [address] Kayley Hatfield MCV 86.6 fL Normal 81.0-99.0 [facility] Comment on above: Performed By: #### C VDTBH #### [facility] [address] [place] [address] Dr. Kayley Hatfield METAMYELOCYTE # Normal [facility] Comment on above: Performed By: #### C VDTBH #### [facility] [address] [place] [address] Dr. Kayley Hatfield METAMYELOCYTE % Normal The [facility] Comment on above: Performed By: #### C VDTBH #### [facility] [address] [address] [address] Kayley Hatfield MONOM# 0.59 103/ul Normal 0.30-0.80 [facility] Comment on above: Performed By: #### C VDTBH #### [facility] [address] [address] [address] Kayley Hatfield MONOM% 3.0 % Normal 1.7-12.0 [facility] Comment on above: Performed By: #### C VDTBH #### [facility] [address] [place] [address] Dr. Kayley Hatfield MPV 8.4 fL Critically low 9.5-13.5 [facility] Comment on above: Performed By: #### C VDTBH #### [facility] [address] [place] [address] Dr. Kayley Hatfield MYELOCYTE # Normal [facility] Comment on above: Performed By: #### C VDTBH #### [facility] [address] [address] [address] Kayley Hatfield MYELOCYTE % Normal [facility] Comment on above: Performed By: #### C VDTBH #### [facility] [address] [address] [address] Kayley Hatfield NRBC Normal [facility] Comment on above: Performed By: #### C VDTBH #### [facility] [address] [address] [address] Kayley Hatfield OVALOCYTES SLIGHT Normal [facility] Comment on above: Performed By: #### C VDTBH #### [facility] [address] [address] [address] Kayley Hatfield PLT 950 103/ul Critically high 150-450 [facility] Comment on above: Performed By: #### C VDTBH #### [facility] [address] [place] [address] Dr. Kayley Hatfield RBC 3.59 106/ul Critically low 4.20-5.40 [facility] Comment on above: Performed By: #### C VDTBH #### [facility] [address] [address] [address] Kayley Hatfield RDW 26.6 % Critically high 11.0-15.0 [facility] Comment on above: Performed By: #### C VDTBH #### [facility] [address] [address] [address] Kayley Hatfield SEG # 13.46 103/ul Critically high 1.40-6.50 [facility] Comment on above: Performed By: #### C VDTBH #### [facility] [address] [address] [address] Kayley Hatfield SEG % 68.0 % Normal 43.0-75.0 [facility] Comment on above: Performed By: #### C VDTBH #### [facility] [address] [address] [address] Kayley Hatfield WBC 19.8 103/ul Critically high 4.0-11.0 [facility] Comment on above: Performed By: #### C VDTBH #### [facility] [address] [address] [address] Kayley Hatfield PROF CHEM 8 (BAS METB)on Anion gap [Moles/Vol] 8.6 mmol/L Normal [facility] Comment on above: Performed By: #### L DH #### [facility] [address] [address] [address] Kayley Hatfield Calcium [Mass/Vol] 8.9 mg/dL Normal 8.5-10.1 [facility] Comment on above: Performed By: #### L DH #### [facility] [address] [address] [address] Kayley Hatfield Chloride [Moles/Vol] 102 mmol/L Normal 98-107 [facility] Comment on above: Performed By: #### L DH #### [facility] [address] [place] [address] Dr. Kayley Hatfield CO2 [Moles/Vol] 34.3 mmol/L Critically high 21.0-32.0 [facility] Comment on above: Performed By: #### L DH #### [facility] [address] [place] [address] Dr. Kayley Hatfield Creatinine [Mass/Vol] 0.86 mg/dL Normal 0.55-1.02 [facility] Comment on above: Performed By: #### L DH #### [facility] [address] [place] [address] Dr. Kayley Hatfield EGFR-AF CITIZEN OF [place] >60 Normal >=60 [facility] Comment on above: Performed By: #### L DH #### [facility] [address] [address] [address] Kayley Hatfield EGFR-NON AF CITIZEN OF [place] >60 Normal >=60 [facility] Comment on above: Performed By: #### L DH #### [facility] [address] [place] [address] Dr. Kayley Hatfield Glucose [Mass/Vol] 102 mg/dL Normal 74-106 [facility] Comment on above: Performed By: #### L DH #### [facility] [address] [address] [address] Kayley Hatfield Potassium [Moles/Vol] 3.9 mmol/L Normal 3.5-5.1 [facility] Comment on above: Performed By: #### L #### [facility] [address] [address] [address] Kayley Hatfield Sodium [Moles/Vol] 141 mmol/L Normal 136-145 [facility] Comment on above: Performed By: #### L DH #### [facility] [address] [address] [address] Kayley Hatfield Urea nitrogen [Mass/Vol] 20.0 mg/dL Critically high 7.0-18.0 [facility] Comment on above: Performed By: #### L #### [facility] [address] [address] [address] Kayley Hatfield Urea nitrogen/Creatinine [Mass ratio] 23.3 mg/mg Normal [facility] Comment on above: Performed By: #### L DH #### [facility] [address] [address] [address] Kayley Hatfield XR CHEST 1 Von [...] REYNOSO Date: 2022-03-29 13:26 Normal [facility] XR CHEST 1 V EXAMINATION: [...] REYNOSO Date: 2022-03-29 11:37 Normal [facility] XR CHEST 1 V EXAMINATION: [...] REYNOSO Date: 2022-03-29 07:32 Normal [facility] XR CHEST 1 V EXAM: [...] ANAND Date: 2022-03-28 22:40 Normal [facility] CBC W MANUAL DIFFon 03-28-20 22 ANISOCYTOSIS 3+ Normal [facility] Comment on above: Performed By: #### C BCKATHY #### [facility] [address] [place] [address] Dr. Kayley Hatfield ATYPICAL LYMPH # Normal [facility] Comment on above: Performed By: #### C ALONZO #### [facility] [address] [place] [address] Dr. Kayley Hatfield ATYPICAL LYMPH % Normal [facility] Comment on above: Performed By: #### C BCKATHY #### [facility] [address] [address] [address] Kayley Hatfield BAND # 0.3 103/ul Normal 0.0-0.3 [facility] Comment on above: Performed By: #### C BCKATHY #### [facility] [address] [place] [address] Dr. Kayley Hatfield BAND % 2 % Normal 0-5 [facility] Comment on above: Performed By: #### C ALONZO #### [facility] [address] [place] [address] Dr. Kayley Hatfield BASOM # 0.00 103/ul Normal 0.00-0.10 [facility] Comment on above: Performed By: #### C ALONZO #### [facility] [address] [place] [address] Dr. Kayley Hatfield BASOM % 0.0 % Critically low 0.2-2.0 [facility] Comment on above: Performed By: #### C ALONZO #### [facility] [address] [place] [address] Dr. Kayley Hatfield BLAST # Normal [facility] Comment on above: Performed By: #### C ALONZO #### [facility] [address] [place] [address] Dr. Kayley Hatfield BLAST % Normal [facility] Comment on above: Performed By: #### C ALONZO #### [facility] [address] [place] [address] Dr. Kayley Hatfield CORRECTED WBC Normal 4.0-11.0 [facility] Comment on above: Performed By: #### C ALONZO #### [facility] [address] [place] [address] Dr. Kayley Hatfield EOS # 0.00 103/ul Normal 0.00-0.70 [facility] Comment on above: Performed By: #### C ALONZO #### [facility] [address] [address] [address] Kayley Hatfield EOS% 0.0 % Critically low 0.9-7.0 [facility] Comment on above: Performed By: #### C ALONZO #### [facility] [address] [address] [address] Kayley Hatfield HCT 23.6 % Critically low 36.0-48.0 [facility] Comment on above: Performed By: #### C ALONZO #### [facility] [address] [address] [address] Kayley Hatfield HGB 6.8 g/dl Critically low 12.0-16.0 [facility] Comment on above: Performed By: #### C ALONZO #### [facility] [address] [address] [address] Kayley Hatfield HYPOCHROMASIA 3+ Normal [facility] Comment on above: Performed By: #### C ALONZO #### [facility] [address] [address] [address] Kayley Hatfield LYMPHM # 1.17 103/ul Critically low 1.20-3.80 The [facility] Comment on above: Performed By: #### C ALONZO #### [facility] [address] [address] [address] Kayley Hatfield LYMPHM% 7.0 % Critically low 20.5-60.0 [facility] Comment on above: Performed By: #### C ALONZO #### [facility] [address] [address] [address] Kayley Hatfield MCH 24.6 pg Critically low 26.7-34.0 [facility] Comment on above: Performed By: #### C ALONZO #### [facility] [address] [address] [address] Kayley Hatfield MCHC 28.8 g/dl Critically low 29.9-35.2 [facility] Comment on above: Performed By: #### C ALONZO #### [facility] [address] [place] [address] Dr. Kayley Hatfield MCV 85.5 fL Normal 81.0-99.0 [facility] Comment on above: Performed By: #### C ALONZO #### [facility] [address] [place] [address] Dr. Kayley Htafield METAMYELOCYTE # Normal The [facility] Comment on above: Performed By: #### C BCKATHY #### [facility] [address] [place] [address] Dr. Kayley Hatfield METAMYELOCYTE % Normal The [facility] Comment on above: Performed By: #### C ALONZO #### [facility] [address] [place] [address] Dr. Kayley Hatfield MONOM# 0.50 103/ul Normal 0.30-0.80 [facility] Comment on above: Performed By: #### C ALONZO #### [facility] [address] [place] [address] Dr. Kayley Hatfield MONOM% 3.0 % Normal 1.7-12.0 [facility] Comment on above: Performed By: #### C ALONZO #### [facility] [address] [place] [address] Dr. Kayley Hatfield MPV 8.6 fL Critically low 9.5-13.5 [facility] Comment on above: Performed By: #### C ALONZO #### [facility] [address] [place] [address] Dr. Kayley Hatfield MYELOCYTE # Normal [facility] Comment on above: Performed By: #### C ALONZO #### [facility] [address] [place] [address] Dr. Kayley Hatfield MYELOCYTE % Normal [facility] Comment on above: Performed By: #### C ALONZO #### [facility] [address] [place] [address] Dr. Kayley Hatfield NRBC Normal [facility] Comment on above: Performed By: #### C ALONZO #### [facility] [address] [address] [address] Kayley Hatfield OVALOCYTES SLIGHT Normal [facility] Comment on above: Performed By: #### Ryley ROSADO #### [facility] [address] [place] [address] Dr. Kayley Hatifeld PLT 1384 103/ul Critically high 150-450 [facility] Comment on above: Performed By: #### Ryley ROSADO #### [facility] [address] [address] [address] Kayley Hatfield RBC 2.76 106/ul Critically low 4.20-5.40 [facility] Comment on above: Performed By: #### Ryley ROSADO #### [facility] [address] [place] [address] Dr. Kayley Hatfield RDW 0.0 % Critically low 11.0-15.0 [facility] Comment on above: Performed By: #### Ryley ROSADO #### [facility] [address] [place] [address] Dr. Kayley Hatfield SEG # 14.70 103/ul Critically high 1.40-6.50 [facility] Comment on above: Performed By: #### Ryley ROSADO #### [facility] [address] [place] [address] Dr. Kayley Hatfield SEG % 88.0 % Critically high 43.0-75.0 The [facility] Comment on above: Performed By: #### Ryley ROSADO #### [facility] [address] [place] [address] Dr. Kayley Hatfield WBC 16.7 103/ul Critically high 4.0-11.0 [facility] Comment on above: Performed By: #### Ryley ROSADO #### [facility] [address] [place] [address] Dr. Kayley Hatfield CRPon 03-28-2022 CRP [Mass/Vol] mg/L Normal <=1.0 [facility] Comment on above: Performed By: #### H GBHCT #### [facility] [address] [place] [address] Dr. Kayley Hatfield Covid-19 PCR (CVDTB)on 03-10 SARS-CoV-2 (COVID-19) RNA ELBA+probe Ql (Unsp spec) Not detected Normal NOT DETECTED [facility] Comment on above: Result Comment: [...] for this test is supported by the Court Transcriber of Health and Human Service's declaration that [...] Performed By: #### P RBC #### [facility] [address] [place] [address] Dr. Kayley Hatfield ER URINE PROFILEon 2 Bilirubin Ql (U) Negative Normal NEGATIVE [facility] Comment on above: Performed By: #### P RBC #### [facility] [address] [place] [address] Dr. Kayley Hatfield Clarity (U) CLEAR Normal CLEAR [facility] Comment on above: Performed By: #### P RBC #### [facility] [address] [place] [address] Dr. Kayley Hatfield Color (U) LT. YELLOW Normal YELLOW [facility] Comment on above: Performed By: #### P RBC #### [facility] [address] [place] [address] Dr. Kayley [place] A micrscopic examination will be performed if indicated. Normal [facility] Comment on above: Performed By: #### P RBC #### [facility] [address] [place] [address] Dr. Kayley Hatfield Glucose Ql (U) Negative Normal NEGATIVE [facility] Comment on above: Performed By: #### P RBC #### [facility] [address] [place] [address] Dr. Kayley Hatfield Hemoglobin Ql (U) Negative Normal NEGATIVE [facility] Comment on above: Performed By: #### P RBC #### [facility] [address] [place] [address] Dr. Kayley Hatfield Ketones Ql (U) Negative Normal NEGATIVE [facility] Comment on above: Performed By: #### P RBC #### [facility] [address] [place] [address] Dr. Kayley Hatfield LEUKOCYTES Negative Normal NEGATIVE [facility] Comment on above: Performed By: #### P RBC #### [facility] [address] [place] [address] Dr. Kayley Hatfield Nitrite Ql (U) Negative Normal NEGATIVE [facility] Comment on above: Performed By: #### P RBC #### [facility] [address] [place] [address] Dr. Kayley Hatfield pH (U) 6.0 [pH] Normal 5-9 [facility] Comment on above: Performed By: #### P RBC #### [facility] [address] [place] [address] Dr. Kayley Hatfield SPEC GRAVITY <=1.005 Abnormal 1.005-<=1.025 The [facility] Comment on above: Performed By: #### P RBC #### [facility] [address] [place] [address] Dr. Kayley Hatfield UA PROTEIN Negative Normal NEGATIVE/ TRACE [facility] Comment on above: Performed By: #### P RBC #### [facility] [address] [place] [address] Dr. Kayley Hatfield UR MICRO IND NOT INDICATED Normal The [facility] Comment on above: Performed By: #### P RBC #### [facility] [address] [place] [address] Dr. Kayley Hatfield Urobilinogen Qn (U) 0.2 {Lu'U}/dL Normal 0.2 - 1. 0 [facility] Comment on above: Performed By: #### P RBC #### [facility] [address] [address] [address] Kayley Hatfield FERRITINon 03-28-2022 Ferritin [Mass/Vol] 61.0 ng/mL Normal 8.0-252.0 [facility] Comment on above: Performed By: #### P RBC #### [facility] [address] [place] [address] Dr. Kayley Hatfield GLYCOHEMOGLOBIN A1Con 2021 ADA RECOMMENDATION SEE BELOW Normal [facility] Comment on above: Result Comment: ADA RECOMMENDED LIMIT 4.0 - 6.0 ADA THERAPEUTIC TARGET < 7.0 ACTION SUGGESTED > 7.0 Performed By: #### P RBC #### [facility] [address] [place] [address] Dr. Kayley Hatfield Glucose [Mass/Vol] 114 mg/dL Normal [facility] Comment on above: Performed By: #### P RBC #### [facility] [address] [place] [address] Dr. Kayley Hatfield HbA1c (Bld) [Mass fraction] 5.6 % Normal 4.5-6.2 [facility] Comment on above: Performed By: #### P RBC #### [facility] [address] [place] [address] Dr. Kayley Hatfield IRONon 03-28-2022 Iron [Mass/Vol] 37.0 ug/dL Critically low 50.0-170.0 [facility] Comment on above: Performed By: #### P RBC #### [facility] [address] [place] [address] Dr. Kayley Hatfield LDHon 03-28-2022 LDH 174 U/L Normal 81-234 [facility] Comment on above: Performed By: #### L DH #### [facility] [address] [place] [address] Dr. Kayley Hatfield LIPID PROFILEon 03-28-2022 CHOL-HDL RATIO NORM SEE BELOW Normal [facility] Comment on above: Result Comment: 3.3 - 4.4 LOW RISK 4.4 - 7.1 AVERAGE RISK 7.1 - 11.0 MODERATE RISK >11.0 HIGH RISK Performed By: #### P RBC #### [facility] [address] [address] [address] Kayley Hatfield Cholesterol [Mass/Vol] 193 mg/dL Normal <=200 [facility] Comment on above: Performed By: #### P RBC #### [facility] [address] [address] [address] Kayley Hatfield Cholesterol in HDL [Mass/Vol] 95 mg/dL Critically high 40-60 [facility] Comment on above: Performed By: #### P RBC #### [facility] [address] [address] [address] Kayley Hatfield Cholesterol in LDL [Mass/Vol] 74.8 mg/dL Normal [facility] Comment on above: Performed By: #### P RBC #### [facility] [address] [place] [address] Dr. Kayley Hatfield Cholesterol.total/Cho lesterol in HDL [Mass ratio] 2.0 {ratio} Normal [facility] Comment on above: Performed By: #### P RBC #### [facility] [address] [address] [address] Kayley Hatfield HDL NORMAL > or = 60 mg/dl - LO W CARDIOVASCULAR RISK <40 mg/dl - HIGH CARDIOVASCULAR RISK Normal [facility] Comment on above: Performed By: #### P RBC #### [facility] [address] [place] [address] Dr. Kayley Hatfield LDL CALC NORMAL SEE BELOW Normal [facility] Comment on above: Result Comment: <100 mg/dl OPTIMAL 100 - 129 mg/dl NEAR OR ABOVE OPTIMAL 130 - 159 mg/dl BORDERLINE HIGH 160 - 189 mg/dl HIGH >190 mg/dl VERY HIGH Performed By: #### P RBC #### [facility] [address] [address] [address] Kayley Hatfield Triglyceride [Mass/Vol] 116 mg/dL Normal <=150 [facility] Comment on above: Performed By: #### P RBC #### [facility] [address] [address] [address] Kayley Hatfield VLDL CALC 23.2 mg/dL Normal [facility] Comment on above: Performed By: #### P RBC #### [facility] [address] [place] [address] Dr. Kayley Hatfield LIVER PROFILEon 03-28-2022 Albumin [Mass/Vol] 3.2 g/dL Critically low 3.4-5.0 Th e [facility] Comment on above: Performed By: #### P RBC #### [facility] [address] [place] [address] Dr. Kayley Hatfield Albumin/Globulin [Mass ratio] 1.0 {ratio} Normal [facility] Comment on above: Performed By: #### P RBC #### [facility] [address] [place] [address] Dr. Kayley Hatfield ALP [Catalytic activity/Vol] 56 U/L Normal 46-116 [facility] Comment on above: Performed By: #### P RBC #### [facility] [address] [place] [address] Dr. Kayley Hatfield ALT [Catalytic activity/Vol] 32 U/L Normal 14-59 [facility] Comment on above: Performed By: #### P RBC #### [facility] [address] [place] [address] Dr. Kayley Hatfield AST [Catalytic activity/Vol] 18 U/L Normal 15-37 [facility] Comment on above: Performed By: #### P RBC #### [facility] [address] [place] [address] Dr. Kayley Hatfield BILI, CONJUGATED 0.1 mg/dL Normal 0.0-0.2 [facility] Comment on above: Performed By: #### P RBC #### [facility] [address] [place] [address] Dr. Kayley Hatfield Bilirubin [Mass/Vol] 0.2 mg/dL Normal 0.2-1.0 [facility] Comment on above: Performed By: #### P RBC #### [facility] [address] [place] [address] Dr. Kayley Hatfield Globulin (S) [Mass/Vol] 3.1 g/dL Normal [facility] Comment on above: Performed By: #### P RBC #### [facility] [address] [place] [address] Dr. Kayley Hatfield Protein [Mass/Vol] 6.3 g/dL Critically low 6.4-8.2 [facility] Comment on above: Performed By: #### P RBC #### [facility] [address] [place] [address] Dr. Kayley Hatfield MAGNESIUMon 03-28-2022 Magnesium [Mass/Vol] 1.8 mg/dL Normal 1.8-2.4 [facility] Comment on above: Performed By: #### H GBHCT #### [facility] [facility] [address] [place] [address] Dr. Kayley Hatfield PHOSPHORUSon 03-28-2022 Phosphate [Mass/Vol] 4.4 mg/dL Normal 2.6-4.7 [facility] Comment on above: Performed By: #### O BSCRN #### [facility] [address] [place] [address] Dr. Kayley Hatfield PROF CHEM 8 (BAS METB)on Anion gap [Moles/Vol] 10.1 mmol/L Normal [facility] Comment on above: Performed By: #### P RBC #### [facility] [address] [place] [address] Dr. Kayley Hatfield Calcium [Mass/Vol] 9.1 mg/dL Normal 8.5-10.1 [facility] Comment on above: Performed By: #### P RBC #### [facility] [address] [place] [address] Dr. Kayley Hatfield Chloride [Moles/Vol] 101 mmol/L Normal 98-107 [facility] Comment on above: Performed By: #### P RBC #### [facility] [address] [place] [address] Dr. Kayley Hatfield CO2 [Moles/Vol] 32.6 mmol/L Critically high 21.0-32.0 [facility] Comment on above: Performed By: #### P RBC #### [facility] [address] [address] [address] Kayley Hatfield Creatinine [Mass/Vol] 0.90 mg/dL Normal 0.55-1.02 [facility] Comment on above: Performed By: #### P RBC #### [facility] [address] [address] [address] Kayley Hatfield EGFR-AF CITIZEN OF [place] >60 Normal >=60 [facility] Comment on above: Performed By: #### P RBC #### [facility] [address] [address] [address] Kayley Hatfield EGFR-NON AF CITIZEN OF [place] >60 Normal >=60 [facility] Comment on above: Performed By: #### P RBC #### [facility] [address] [address] [address] Kayley Hatfield Glucose [Mass/Vol] 161 mg/dL Critically high 74-[address] [facility] Comment on above: Performed By: #### P RBC #### [facility] [address] [address] [address] Kayley Hatfield Potassium [Moles/Vol] 4.7 mmol/L Normal 3.5-5.1 [facility] Comment on above: Performed By: #### P RBC #### [facility] [address] [place] [address] Dr. Kayley Hatfield Sodium [Moles/Vol] 139 mmol/L Normal 136-145 [facility] Comment on above: Performed By: #### P RBC #### [facility] [address] [address] [address] Kayley Hatfield Urea nitrogen [Mass/Vol] 15.0 mg/dL Normal 7.0-18.0 [facility] Comment on above: Performed By: #### P RBC #### [facility] [address] [place] [address] Dr. Kayley Hatfield Urea nitrogen/Creatinine [Mass ratio] 16.7 mg/mg Normal [facility] Comment on above: Performed By: #### P RBC #### [facility] [address] [place] [address] Dr. Kayley Hatfield RETICULOCYTEon 03-28-2022 RETIC 4.65 % Critically high 0.60-3.10 [facility] Comment on above: Performed By: #### L DH #### [facility] [address] [place] [address] Dr. Kayley Hatfield SED RATE WESTERGRENon 2021 SED RATE 12 mm/hr Normal <=30 [facility] Comment on above: Performed By: #### P RTELEC #### [facility] [address] [place] [address] Dr. Kayley Hatfield TSHon 03-28-2022 TSH 0.922 uIU/mL Normal 0.358-3.[address] [facility] Comment on above: Performed By: #### P RBC #### [facility] [address] [place] [address] Dr. Kayley Hatfield TYPE AND SCREENon 03-28-2022 TYPE AND SCREEN Negative Normal The [facility] Comment on above: Performed By: #### C VDTBH #### [facility] [address] [place] [address] Dr. Kayley Hatfield VIT B12 AND FOLATEon 022 Cobalamin (Vitamin B12) [Mass/Vol] 490.0 pg/mL Normal 193.0-986.0 [facility] Comment on above: Performed By: #### L DH #### [facility] [address] [place] [address] Dr. Kayley Hatfield FOLATE 14.00 ng/mL Normal 8.60-58.90 [facility] Comment on above: Performed By: #### L DH #### [facility] [address] [place] [address] Dr. Kayley Hatfield VITAMIN D 25 OHon 03-28-2022 VIT D 25-OH 41.5 ng/mL Normal [facility] Comment on above: Performed By: #### O BSCRN #### [facility] [address] [place] [address] Dr. Kayley Hatfield VIT D RANGES SEE BELOW Normal [facility] Comment on above: Result Comment: <20 ng/mL Vit D deficient 20 - <30 ng/mL Vit D insufficient 30 - 100 ng/mL Vit D sufficient >100 ng/mL Potential Toxicity Performed By: #### O BSCRN #### [facility] [address] [address] [address] Kayley Hatfield XR CHEST 1 Von [...] ARAIZA Date: 2022-03-28 21:37 Normal [facility] BASIC METABOLIC PANELon Calcium [Mass/Vol] 8.9 mg/dL Normal 8.6-10.3 [facility] Comment on above: Order Comment: No: D o not add to previous draw Performed By: #### 3 5200, 86176, 12653, 97434 #### [facility] [address] [place] [address], [facility] Chloride [Moles/Vol] 97 mmol/L Low 98-107 [facility] Comment on above: Order Comment: No: D o not add to previous draw Performed By: #### 3 5200, 64865, 25445, 36538 #### [facility] [address] [place] [address], [place] CO2 [Moles/Vol] 35 mmol/L High 21-31 [facility] Comment on above: Order Comment: No: D o not add to previous draw Performed By: #### 3 0, 47578, 57765, 25992 #### [facility] [address] [place] [address], [facility] Creatinine [Mass/Vol] 0.65 mg/dL Normal 0.60-1.20 [facility] Comment on above: Order Comment: No: D o not add to previous draw Performed By: #### 3 5200, 03902, 87743, 05333 #### [facility] [address] [place] [address], [facility] GFR/1.73 sq M.predicted among non-blacks MDRD (S/P/Bld) [Vol rate/Area] mL/min/{1.73_m2} Normal >60 [facility] Comment on above: Order Comment: No: D o not add to previous draw Result Comment: [facility]'s estimated glomerular filtration rate (eGFR) will [...] of individuals. Performed By: #### 3 0, 70424, 28892, 97808 #### [facility] [address] [place] [address], [place] Glucose [Mass/Vol] 161 mg/dL High 70-100 [facility] Comment on above: Order Comment: No: D o not add to previous draw Performed By: #### 3 0, 36702, 31502, 25656 #### [facility] [address] [place] [address], [place] Potassium [Moles/Vol] 3.9 mmol/L Normal 3.5-5.1 [facility] Comment on above: Order Comment: No: D o not add to previous draw Performed By: #### 3 5200, 44647, 58621, 59822 #### [facility] [address] [place] [address], [facility] Sodium [Moles/Vol] 136 mmol/L Normal 136-145 [facility] Comment on above: Order Comment: No: D o not add to previous draw Performed By: #### 3 5200, 29144, 95825, 50906 #### [facility] [address] [place] [address], [facility] Urea nitrogen [Mass/Vol] 16 mg/dL Normal 7-25 [facility] Comment on above: Order Comment: No: D o not add to previous draw Performed By: #### 3 5200, 28490, 32227, 21656 #### [facility] [address] CBC COMPLETE BLOOD COUNTon 0 - Hematocrit (Bld) [Volume fraction] 28.2 % Low 36.0-45.0 [facility] Comment on above: Order Comment: No: D o not add to previous draw Performed By: #### 3 5200 #### [facility] [address] [place] [address], [facility] Hemoglobin (Bld) [Mass/Vol] 8.3 g/dL Low 12.0-15.0 [facility] Comment on above: Order Comment: No: D o not add to previous draw Performed By: #### 3 5200 #### [facility] [address] [place] [address], [facility] MCH (RBC) [Entitic mass] 22.9 pg Low 27.0-33.0 [facility] Comment on above: Order Comment: No: D o not add to previous draw Performed By: #### 3 5200 #### [facility] [address] MCHC (RBC) [Mass/Vol] 29.4 g/dL Low 32.0-35.0 [facility] Comment on above: Order Comment: No: D o not add to previous draw Performed By: #### 3 5200 #### [facility] [address] [facility] [address], [facility] MCV (RBC) [Entitic vol] 77.9 fL Low 82.0-98.0 [facility] Comment on above: Order Comment: No: D o not add to previous draw Performed By: #### 3 5200 #### [facility] [address] [place] [address], [facility] Nucleated RBC/100 WBC (Bld) [Ratio] 0 % Normal 0-0 [facility] Comment on above: Order Comment: No: D o not add to previous draw Performed By: #### 3 5200 #### [facility] [address] [facility] [place] [address], [facility] PLAT CNT 221 10*3/uL Normal 150-400 [facility] Comment on above: Order Comment: No: D o not add to previous draw Performed By: #### 3 5200 #### [facility] [address] [place] [address], [facility] RBC (Bld) [#/Vol] 3.62 10*6/uL Low 3.80-5.00 [facility] Comment on above: Order Comment: No: D o not add to previous draw Performed By: #### 3 5200 #### [facility] [address] [facility] [place] [address], [facility] RDW ---- Normal 11.5-15.0 [facility] Comment on above: Order Comment: No: D o not add to previous draw Result Comment: Prev ious RDW was unable to be calculated Performed By: #### 3 5200 #### [facility] [address] [facility] [place] [address], [facility] WBC (Bld) [#/Vol] 11.88 10*3/uL High 4.00-10.60 [facility] Comment on above: Order Comment: No: D o not add to previous draw Performed By: #### 3 5200 #### [facility] [address] [facility] [place] [address], [facility] POC GLUCOSE LABon 03-15-2022 Glucose [Mass/Vol] 109 mg/dL High 70-100 [facility] Comment on above: Performed By: #### 8 5499 ####[facility] [facility] [place] [address], [place] POC GLUCOSE LABon 03-14-2022 Glucose [Mass/Vol] 278 mg/dL High 70-100 [facility] Comment on above: Performed By: #### 8 5499 ####[facility] [facility] [place] [address], [place] Glucose [Mass/Vol] 195 mg/dL High 70-100 [facility] Comment on above: Performed By: #### 8 5499 ####[facility] [facility] [place] [address], [place] Glucose [Mass/Vol] 114 mg/dL High 70-100 [facility] Comment on above: Performed By: #### 8 5499 ####[facility] [facility] [place] [address], [place] Glucose [Mass/Vol] 113 mg/dL High 70-100 [facility] Comment on above: Performed By: #### 3 5200 #### [facility] [address] [facility] [place] [address], [place] PORTABLE CHEST 1 VIEWon PORTABLE CHEST 1 VIEW [facility] Department of Radiology [address] [place] [id number] Patient Name: LISE CANALES : 1955 Sex: F Age: Race: White Pt. Location: [address] [place] [address] Patient Status: I Ordered Date: 03/14/2022 2:35:00 [...] chest. Electronically signed: Tyshawn Tapia. Transcribed by: [email or web address], User Resident: Electronically Signed by: TYSHAWN TAPIA @ 03/14/2022 03:31 PM Normal [facility] Comment on above: Order Comment: Check Chest Tube Position, S/P Chest tube DC'd PORTABLE CHEST 1 VIEW [facility] Department of Radiology [address] [place] [id number] Patient Name: LISE CANALES : 1955 Sex: F Age: Race: White Pt. Location: [address] [place] [address] Patient Status: I Ordered Date: 03/14/2022 6:50:00 [...] place. No definitive pneumothorax. Electronically signed: Tyshawn Tpaia. Transcribed by: [email or web address], User Resident: Electronically Signed by: TYSHAWN TAPIA @ 03/14/2022 02:56 PM Normal [facility] Comment on above: Order Comment: Check Chest Tube Position, S/P Chest tube DC'd POC GLUCOSE LABon 03-13-2022 Glucose [Mass/Vol] 282 mg/dL High 70-100 [facility] Comment on above: Performed By: #### 8 5499 ####[facility] [place] [address], [facility] Glucose [Mass/Vol] 163 mg/dL High 70-100 [facility] Comment on above: Performed By: #### 8 5499 ####[facility] [place] [address], [facility] Glucose [Mass/Vol] 149 mg/dL High 70-100 [facility] Comment on above: Performed By: #### 3 5200 #### [facility] [address] [place] [address], [facility] Glucose [Mass/Vol] 149 mg/dL High 70-100 [facility] Comment on above: Performed By: #### 8 5499 ####[facility] [place] [address], [facility] PORTABLE CHEST 1 VIEWon PORTABLE CHEST 1 VIEW [facility] Department of Radiology [address] [place] [phone] Patient Name: LISE CANALES : 1955 Sex: F Age: Race: White Pt. Location: [id number] Patient Status: I Ordered Date: 03/13/2022 4:15:00 [...] morning Electronically signed: Avinash Mckay. Transcribed by: [email or web address], User Resident: Electronically Signed by: AVINASH MCKAY @ 03/13/2022 06:20 PM Normal [facility] Comment on above: Order Comment: Check Chest Tube Position, S/P Chest tube DC'd PORTABLE CHEST 1 VIEW [facility] Department of Radiology [address] [place] [id number] Patient Name: LISE CANALES : 1955 Sex: F Age: Race: White Pt. Location: [id number] Patient Status: I Ordered Date: 03/13/2022 6:50:00 [...] congestion. Electronically signed: Tyshawn Tapia. Transcribed by: [email or web address], User Resident: Electronically Signed by: TYSHAWN TAPIA @ 03/13/2022 08:34 AM Normal [facility] Comment on above: Order Comment: Evalu ate for Aspiration POTASSIUM BLOODon 03-13-2022 Potassium [Moles/Vol] 4.5 mmol/L Normal 3.5-5.1 [facility] Comment on above: Order Comment: No: D o not add to previous draw Performed By: #### 3 5200 #### [facility] [address] [facility] [place] [address], [facility] BASIC METABOLIC PANELon Calcium [Mass/Vol] 9.4 mg/dL Normal 8.6-10.3 [facility] Comment on above: Order Comment: Check Chest Tube Position, S/P Chest tube DC'd Performed By: #### 0 0071 ####[facility] [facility] [place] [address], [facility] Chloride [Moles/Vol] 98 mmol/L Normal 98-107 [facility] Comment on above: Order Comment: Check Chest Tube Position, S/P Chest tube DC'd Performed By: #### 0 0071 ####[facility] [facility] [id number], [facility] CO2 [Moles/Vol] 34 mmol/L High 21-31 [facility] Comment on above: Order Comment: Check Chest Tube Position, S/P Chest tube DC'd Performed By: #### 0 0071 ####[facility] [facility] [place] [address], [facility] Creatinine [Mass/Vol] 0.56 mg/dL Low 0.60-1.20 [facility] Comment on above: Order Comment: Check Chest Tube Position, S/P Chest tube DC'd Performed By: #### 0 0071 ####[facility] [place] [address], [facility] GFR/1.73 sq M.predicted among non-blacks MDRD (S/P/Bld) [Vol rate/Area] mL/min/{1.73_m2} Normal >60 [facility] Comment on above: Order Comment: Check Chest Tube Position, S/P Chest tube DC'd Result Comment: [facility]'s estimated glomerular filtration rate (eGFR) will [...] of individuals. Performed By: #### 0 0071 ####[facility] [facility] [place] [address], [facility] Glucose [Mass/Vol] 114 mg/dL High 70-100 [facility] Comment on above: Order Comment: Check Chest Tube Position, S/P Chest tube DC'd Performed By: #### 0 0071 ####[facility] [facility] [place] [address], [facility] Potassium [Moles/Vol] 3.3 mmol/L Low 3.5-5.1 [facility] Comment on above: Order Comment: Check Chest Tube Position, S/P Chest tube DC'd Performed By: #### 0 0071 ####[facility] [place] [address], [facility] Sodium [Moles/Vol] 140 mmol/L Normal 136-145 [facility] Comment on above: Order Comment: Check Chest Tube Position, S/P Chest tube DC'd Performed By: #### 0 0071 ####[facility] Urea nitrogen [Mass/Vol] 9 mg/dL Normal 7-25 [facility] Comment on above: Order Comment: Check Chest Tube Position, S/P Chest tube DC'd Performed By: #### 0 0071 ####[facility] CBC COMPLETE BLOOD COUNTon 0 03-12-2022 Hematocrit (Bld) [Volume fraction] 35.2 % Low 36.0-45.0 [facility] Comment on above: Order Comment: No: D o not add to previous draw Performed By: #### 3 5200 #### [facility] [address] [place] [address], [facility] Hemoglobin (Bld) [Mass/Vol] 10.1 g/dL Low 12.0-15.0 [facility] Comment on above: Order Comment: No: D o not add to previous draw Performed By: #### 3 5200 #### [facility] [address] [place] [address], [facility] IMM PLATELET FRAC 3.6 % Normal 0.8-6.3 [facility] Comment on above: Order Comment: No: D o not add to previous draw Performed By: #### 3 5200 #### [facility] [address] [place] [address], [facility] MCH (RBC) [Entitic mass] 21.9 pg Low 27.0-33.0 [facility] Comment on above: Order Comment: No: D o not add to previous draw Performed By: #### 3 5200 #### [facility] [address] [facility] [place] [address], [facility] MCHC (RBC) [Mass/Vol] 28.7 g/dL Low 32.0-35.0 [facility] Comment on above: Order Comment: No: D o not add to previous draw Performed By: #### 3 5200 #### [facility] [address] [facility] [place] [address], [facility] MCV (RBC) [Entitic vol] 76.2 fL Low 82.0-98.0 [facility] Comment on above: Order Comment: No: D o not add to previous draw Performed By: #### 3 5200 #### [facility] [address] [place] [address], [facility] Nucleated RBC/100 WBC (Bld) [Ratio] 0 % Normal 0-0 [facility] Comment on above: Order Comment: No: D o not add to previous draw Performed By: #### 3 5200 #### [facility] [address] [facility] [place] [address], [facility] PLAT CNT 129 10*3/uL Low 150-400 [facility] Comment on above: Order Comment: No: D o not add to previous draw Performed By: #### 3 5200 #### [facility] [address] [facility] [place] [address], [facility] RBC (Bld) [#/Vol] 4.62 10*6/uL Normal 3.80-5.00 [facility] Comment on above: Order Comment: No: D o not add to previous draw Performed By: #### 3 5200 #### [facility] [address] [place] [address], [facility] RDW Unable to Calculate Normal 11.5-15.0 [facility] Comment on above: Order Comment: No: D o not add to previous draw Performed By: #### 3 5200 #### [facility] [address] [place] [address], [place] WBC (Bld) [#/Vol] 11.72 10*3/uL High 4.00-10.60 [facility] Comment on above: Order Comment: No: D o not add to previous draw Performed By: #### 3 5200 #### [facility] [address] [place] [address], [place] POC GLUCOSE LABon 03-12-2022 Glucose [Mass/Vol] 252 mg/dL High 70-100 [facility] Comment on above: Performed By: #### 3 5200 #### [facility] [address] [place] [address], [place] POC GLUCOSE LABon 03-11-2022 Glucose [Mass/Vol] 121 mg/dL High 70-100 [facility] Comment on above: Performed By: #### 8 5499 ####[facility] [facility] [place] [address], [place] Glucose [Mass/Vol] 122 mg/dL High 70-100 [facility] Comment on above: Performed By: #### 3 5200 #### [facility] [address] [facility] [place] [address], [place] Glucose [Mass/Vol] 86 mg/dL Normal 70-100 [facility] Comment on above: Performed By: #### 3 5200 #### [facility] [address] [facility] [place] [address], [facility] PORTABLE CHEST 1 VIEWon PORTABLE CHEST 1 VIEW [facility] Department of Radiology [address] [place] [phone] Patient Name: LISE CANALES : 1955 Sex: F Age: Race: White Pt. Location: [id number] Patient Status: I Ordered Date: 03/11/2022 3:25:00 [...] abnormalities Electronically signed: Avinash Mckay. Transcribed by: [email or web address], User Resident: Electronically Signed by: AVINASH MCKAY @ 03/11/2022 06:30 PM Normal [facility] Comment on above: Order Comment: Evalu ate for Atelectasis CBC COMPLETE BLOOD COUNTon 0 03-10-2022 Erythrocyte distribution width (RBC) [Ratio] 29.9 % High 11.5-15.0 [facility] Comment on above: Order Comment: No: D o not add to previous draw Performed By: #### 3 5200 #### [facility] [address] [place] [address], [facility] Hematocrit (Bld) [Volume fraction] 32.2 % Low 36.0-45.0 [facility] Comment on above: Order Comment: No: D o not add to previous draw Performed By: #### 3 5200 #### [facility] [address] [place] [id number], [facility] Hemoglobin (Bld) [Mass/Vol] 9.2 g/dL Low 12.0-15.0 [facility] Comment on above: Order Comment: No: D o not add to previous draw Performed By: #### 3 5200 #### [facility] [address] [facility] [place] [address], [facility] IMM PLATELET FRAC 3.4 % Normal 0.8-6.3 [facility] Comment on above: Order Comment: No: D o not add to previous draw Performed By: #### 3 5200 #### [facility] [address] [facility] [place] [address], [facility] MCH (RBC) [Entitic mass] 21.9 pg Low 27.0-33.0 [facility] Comment on above: Order Comment: No: D o not add to previous draw Performed By: #### 3 5200 #### [facility] [address] [place] [id number], [facility] MCHC (RBC) [Mass/Vol] 28.6 g/dL Low 32.0-35.0 [facility] Comment on above: Order Comment: No: D o not add to previous draw Performed By: #### 3 5200 #### [facility] [address] [place] [id number], [facility] MCV (RBC) [Entitic vol] 76.7 fL Low 82.0-98.0 [facility] Comment on above: Order Comment: No: D o not add to previous draw Performed By: #### 3 5200 #### [facility] [address] [place] [address], [facility] Nucleated RBC/100 WBC (Bld) [Ratio] 0 % Normal 0-0 [facility] Comment on above: Order Comment: No: D o not add to previous draw Performed By: #### 3 5200 #### [facility] [address] [place] [address], [facility] PLAT CNT 124 10*3/uL Low 150-400 [facility] Comment on above: Order Comment: No: D o not add to previous draw Performed By: #### 3 5200 #### [facility] [address] [place] [address], [facility] RBC (Bld) [#/Vol] 4.20 10*6/uL Normal 3.80-5.00 [facility] Comment on above: Order Comment: No: D o not add to previous draw Performed By: #### 3 5200 #### [facility] [address] [place] [address], [facility] WBC (Bld) [#/Vol] 12.68 10*3/uL High 4.00-10.60 [facility] Comment on above: Order Comment: No: D o not add to previous draw Performed By: #### 3 5200 #### [facility] [address] [place] [id number], [facility] HEMOGLOBIN A1Con 03-10-2022 Glucose [Moles/Vol] 143 mmol/L Normal [facility] Comment on above: Order Comment: No: D o not add to previous draw Result Comment: Resu lt changed by BSHORT on 03/10/2022 13:15. The previous value was 140. Performed By: #### 3 1791 #### [facility] [address] [place] [id number], [facility] HbA1c (Bld) [Mass fraction] 6.6 % High 4.0-6.0 [facility] Comment on above: Order Comment: No: D o not add to previous draw Result Comment: Resu lt changed by BSHORT on 03/10/2022 13:15. The previous value was 6.5. Performed By: #### 3 1791 #### [facility] [address] [facility] [place] [address], [facility] POC GLUCOSE LABon 03-10-2022 Glucose [Mass/Vol] 107 mg/dL High 70-100 [facility] Comment on above: Performed By: #### 3 5200 #### [facility] [address] [place] [address], [facility] Glucose [Mass/Vol] 100 mg/dL Normal 70-100 [facility] Comment on above: Performed By: #### 8 5499 ####[facility] [place] [address], [facility] Glucose [Mass/Vol] 147 mg/dL High 70-100 [facility] Comment on above: Performed By: #### 8 5499 ####[facility] [place] [address], [facility] Glucose [Mass/Vol] 65 mg/dL Low 70-100 [facility] Comment on above: Performed By: #### 8 5499 ####[facility] [place] [address], [facility] PORTABLE CHEST 1 VIEWon PORTABLE CHEST 1 VIEW [facility] Department of Radiology [address] [place] [address] Patient Name: LISE CANALES : 1955 Sex: F Age: Race: White Pt. Location: [address] [place] [address] Patient Status: I Ordered Date: 03/10/2022 7:40:00 [...] recommended. Electronically signed: Derek Ingram. Transcribed by: [email or web address], User Resident: Electronically Signed by: DEREK INGRAM @ 03/10/2022 12:10 PM Normal [facility] Comment on above: Order Comment: No: D o not add to previous draw *URINE CULTUREon 03-09-2022 *URINE CULTURE Clinical Report: (D) Specimen/Source: URINE/CLEAN VOID URINE Collected: 03/09/2022 01:58 Status: Final Last Updated: 03/10/2022 08:51 ISO (Final) 50,000 - 100,000 Cfu/mL Mixed Lexi: Multiple Organisms present suggest contamination. Suggest Repeat Specimen Normal [facility] Comment on above: Performed By: #### 3 0339 ####[facility] CBC W/DIFFon 03-09-2022 ABS IMM GRANS 0.1 10*3/uL Normal 0.0-0.2 [facility] Comment on above: Order Comment: Check Chest Tube Position, S/P Chest tube DC'd Performed By: #### 5 0103 ####[facility] ABS NEUTROPHILS 13.3 10*3/uL High 1.6-7.6 [facility] Comment on above: Order Comment: Check Chest Tube Position, S/P Chest tube DC'd Performed By: #### 5 0103 ####[facility] [address] ANISO Moderate Normal [facility] Comment on above: Order Comment: Check Chest Tube Position, S/P Chest tube DC'd Performed By: #### 5 0103 ####[facility] Basophils (Bld) [#/Vol] 0.0 10*3/uL Normal 0.0-0.2 [facility] Comment on above: Order Comment: Check Chest Tube Position, S/P Chest tube DC'd Performed By: #### 5 0103 ####[facility] [address] Basophils/100 WBC (Bld) 0.3 % Normal 0.0-1.0 [facility] Comment on above: Order Comment: Check Chest Tube Position, S/P Chest tube DC'd Performed By: #### 5 0103 ####[facility] Eosinophils (Bld) [#/Vol] 0.1 10*3/uL Normal 0.0-0.5 [facility] Comment on above: Order Comment: Check Chest Tube Position, S/P Chest tube DC'd Performed By: #### 5 0103 ####[facility] Eosinophils/100 WBC (Bld) 0.5 % Normal 0.0-6.0 [facility] Comment on above: Order Comment: Check Chest Tube Position, S/P Chest tube DC'd Performed By: #### 5 0103 ####[facility] [address] Erythrocyte distribution width (RBC) [Ratio] 28.7 % High 11.5-15.0 [facility] Comment on above: Order Comment: Check Chest Tube Position, S/P Chest tube DC'd Performed By: #### 5 0103 ####[facility] [address] Hematocrit (Bld) [Volume fraction] 29.1 % Low 36.0-45.0 [facility] Comment on above: Order Comment: Check Chest Tube Position, S/P Chest tube DC'd Performed By: #### 5 0103 ####[facility] Hemoglobin (Bld) [Mass/Vol] 8.3 g/dL Low 12.0-15.0 [facility] Comment on above: Order Comment: Check Chest Tube Position, S/P Chest tube DC'd Performed By: #### 5 0103 ####[facility] HYPO Slight Normal [facility] Comment on above: Order Comment: Check Chest Tube Position, S/P Chest tube DC'd Performed By: #### 5 0103 ####[facility] IMMATURE GRANS 0.5 % Normal 0.0-1.0 [facility] Comment on above: Order Comment: Check Chest Tube Position, S/P Chest tube DC'd Performed By: #### 5 0103 ####[facility] Lymphocytes (Bld) [#/Vol] 0.8 10*3/uL Low 1.2-4.0 [facility] Comment on above: Order Comment: Check Chest Tube Position, S/P Chest tube DC'd Performed By: #### 5 0103 ####[facility] Lymphocytes/100 WBC (Bld) 5.5 % Low 20.0-45.0 [facility] Comment on above: Order Comment: Check Chest Tube Position, S/P Chest tube DC'd Performed By: #### 5 3 ####[facility] MCH (RBC) [Entitic mass] 21.7 pg Low 27.0-33.0 [facility] Comment on above: Order Comment: Check Chest Tube Position, S/P Chest tube DC'd Performed By: #### 5 0103 ####[facility] MCHC (RBC) [Mass/Vol] 28.5 g/dL Low 32.0-35.0 [facility] Comment on above: Order Comment: Check Chest Tube Position, S/P Chest tube DC'd Performed By: #### 5 0103 ####[facility] MCV (RBC) [Entitic vol] 76.2 fL Low 82.0-98.0 [facility] Comment on above: Order Comment: Check Chest Tube Position, S/P Chest tube DC'd Performed By: #### 5 0103 ####[facility] [place] [address], [facility] Monocytes (Bld) [#/Vol] 1.1 10*3/uL High 0.1-1.0 [facility] Comment on above: Order Comment: Check Chest Tube Position, S/P Chest tube DC'd Performed By: #### 5 0103 ####[facility] [facility] [place] [address], [facility] MONOS 7.3 % Normal 5.0-12.0 [facility] Comment on above: Order Comment: Check Chest Tube Position, S/P Chest tube DC'd Performed By: #### 5 0103 ####[facility] [facility] [place] [address], [facility] Neutrophils/100 WBC (Bld) 85.9 % High 40.0-72.0 [facility] Comment on above: Order Comment: Check Chest Tube Position, S/P Chest tube DC'd Performed By: #### 5 0103 ####[facility] [facility] [place] [address], [facility] Nucleated RBC/100 WBC (Bld) [Ratio] 0 % Normal 0-0 [facility] Comment on above: Order Comment: Check Chest Tube Position, S/P Chest tube DC'd Performed By: #### 5 0103 ####[facility] [facility] [place] [address], [facility] PLAT CNT 149 10*3/uL Low 150-400 [facility] Comment on above: Order Comment: Check Chest Tube Position, S/P Chest tube DC'd Performed By: #### 5 0103 ####[facility] [facility] [place] [address], [facility] POIK Slight Normal [facility] Comment on above: Order Comment: Check Chest Tube Position, S/P Chest tube DC'd Performed By: #### 5 0103 ####[facility] [place] [address], [facility] POLY Slight Normal [facility] Comment on above: Order Comment: Check Chest Tube Position, S/P Chest tube DC'd Performed By: #### 5 0103 ####[facility] [place] [address], [facility] RBC (Bld) [#/Vol] 3.82 10*6/uL Normal 3.80-5.00 [facility] Comment on above: Order Comment: Check Chest Tube Position, S/P Chest tube DC'd Performed By: #### 5 0103 ####[facility] [place] [address], [facility] WBC (Bld) [#/Vol] 15.41 10*3/uL High 4.00-10.60 [facility] Comment on above: Order Comment: Check Chest Tube Position, S/P Chest tube DC'd Performed By: #### 5 0103 ####[facility] [place] [address], [facility] COMP METABOLIC PANELon 03-09 Albumin [Mass/Vol] 3.8 g/dL Normal 3.5-5.7 [facility] Comment on above: Order Comment: No: D o not add to previous draw Performed By: #### 3 5200, 08202, 36529, 17250 #### [facility] [address] [place] [address], [facility] ALKALINE PHOSPH 52 IU/L Normal 34-104 [facility] Comment on above: Order Comment: No: D o not add to previous draw Performed By: #### 3 5200, 67474, 78766, 17017 #### [facility] [address] [place] [address], [facility] ALT [Catalytic activity/Vol] 13 U/L Normal 7-52 [facility] Comment on above: Order Comment: No: D o not add to previous draw Performed By: #### 3 5200, 01755, 90170, 37700 #### [facility] [address] [place] [address], [place] AST [Catalytic activity/Vol] 14 U/L Normal 13-39 [facility] Comment on above: Order Comment: No: D o not add to previous draw Performed By: #### 3 5200, 97825, 87262, 06947 #### [facility] [address] [place] [address], [place] Bilirubin [Mass/Vol] 0.4 mg/dL Normal 0.3-1.0 [facility] Comment on above: Order Comment: No: D o not add to previous draw Performed By: #### 3 5200, 30639, 27153, 69724 #### [facility] [address] [place] [address], [place] Calcium [Mass/Vol] 9.2 mg/dL Normal 8.6-10.3 [facility] Comment on above: Order Comment: No: D o not add to previous draw Performed By: #### 3 5200, 29992, 03353, 09682 #### [facility] [address] [place] [address], [place] Chloride [Moles/Vol] 99 mmol/L Normal 98-107 [facility] Comment on above: Order Comment: No: D o not add to previous draw Performed By: #### 3 5200, 85095, 61435, 96165 #### [facility] [address] [place] [address], [place] CO2 [Moles/Vol] 33 mmol/L High 21-31 [facility] Comment on above: Order Comment: No: D o not add to previous draw Performed By: #### 3 5200, 95306, 64435, 45522 #### [facility] [address] [place] [address], [place] Creatinine [Mass/Vol] 0.79 mg/dL Normal 0.55-1.02 [facility] Comment on above: Order Comment: No: D o not add to previous draw Performed By: #### 3 5200, 07110, 11432, 43480 #### [facility] [address] Performed By: #### B LDCX1 #### [facility] [address] [place] [address] Dr. Kayley Hatfield GFR/1.73 sq M.predicted among non-blacks MDRD (S/P/Bld) [Vol rate/Area] mL/min/{1.73_m2} Normal >60 [facility] Comment on above: Order Comment: No: D o not add to previous draw Result Comment: [facility]'s estimated glomerular filtration rate (eGFR) will [...] of individuals. Performed By: #### 3 5200, 78989, 82266, 97969 #### [facility] [address] [place] [address], [facility] Glucose [Mass/Vol] 125 mg/dL High 70-100 [facility] Comment on above: Order Comment: No: D o not add to previous draw Performed By: #### 3 5200, 98021, 53717, 22723 #### [facility] [address] [place] [address], [facility] Potassium [Moles/Vol] 4.7 mmol/L Normal 3.5-5.1 [facility] Comment on above: Order Comment: No: D o not add to previous draw Performed By: #### 3 5200, 76710, 97740, 92228 #### [facility] [address] [place] [address], [facility] Protein [Mass/Vol] 5.9 g/dL Low 6.0-8.3 [facility] Comment on above: Order Comment: No: D o not add to previous draw Performed By: #### 3 5200, 71775, 01966, 09680 #### [facility] [address] [place] [address], [facility] Sodium [Moles/Vol] 136 mmol/L Normal 136-145 [facility] Comment on above: Order Comment: No: D o not add to previous draw Performed By: #### 3 5200, 09664, 64732, 02702 #### [facility] [address] [place] [id number], [facility] Urea nitrogen [Mass/Vol] 12 mg/dL Normal 7-25 [facility] Comment on above: Order Comment: No: D o not add to previous draw Performed By: #### 3 5200, 80991, 24192, 61664 #### [facility] [address] [place] [id number], [facility] LIPID PROFILEon 03-09-2022 Cholesterol [Mass/Vol] 160 mg/dL Normal 120-200 [facility] Comment on above: Order Comment: No: D o not add to previous draw Result Comment: CHOL ESTEROL REFERENCE RANGE: 20 YEARS AND OLDER CARDIOVASCULAR RISK Less than 200 mg/dl Low Risk 200 to 239 mg/dl Borderline Risk 240 mg/dl and greater High Risk Performed By: #### 3 5200, 69387, 55183, 32094 #### [facility] [address] [place] [address], [facility] Cholesterol in HDL [Mass/Vol] 76 mg/dL Normal 23-92 [facility] Comment on above: Order Comment: No: D o not add to previous draw Result Comment: Slig ht variation in normal range could be due to gender and/or age. HDL CHOLESTEROL REFERENCE RANGE: 20 years and older Cardiovascular Risk > or =60 mg/dL Desirable 40 TO 59 mg/dL Low Risk <40 mg/dL High Risk Performed By: #### 3 5200, 89607, 39049, 96853 #### [facility] [address] [place] [address], [facility] Cholesterol in LDL [Mass/Vol] 48 mg/dL Normal 0-130 [facility] Comment on above: Order Comment: No: D o not add to previous draw Result Comment: LDL IS A CALCULATION LDL IS ONLY VALID IF THE TRIG IS LESS THAN 400. Performed By: #### 3 5200, 60932, 17200, 30024 #### [facility] [address] [place] [address], [facility] Cholesterol.total/Cho lesterol in HDL [Mass ratio] 2.1 {ratio} Normal .0-4.5 [facility] Comment on above: Order Comment: No: D o not add to previous draw Performed By: #### 3 5200, 61196, 06142, 97025 #### [facility] [address] [place] [address], [facility] NON-HDL CHOLESTEROL 84 mg/dL Normal [facility] Comment on above: Order Comment: No: D o not add to previous draw Performed By: #### 3 5200, 02825, 43891, 66535 #### [facility] [address] [place] [address], [place] Triglyceride [Mass/Vol] 179 mg/dL High 40-149 [facility] Comment on above: Order Comment: No: D o not add to previous draw Result Comment: TRIG LYCERIDE REFERENCE RANGE: 20 YEARS AND OLDER CARDIOVASCULAR RISK LESS THAN 150 mg/dl LOW RISK 150 TO 199 mg/dl BORDERLINE RISK 200 mg/dl AND GREATER HIGH RISK Performed By: #### 3 5200, 13489, 45344, 49864 #### [facility] [address] [place] [address], [place] VLDL CHOL 36 mg/dL Normal 0-40 [facility] Comment on above: Order Comment: No: D o not add to previous draw Performed By: #### 3 5200, 87499, 40018, 69569 #### [facility] [address] POC GLUCOSE LABon 03-09-2022 Glucose [Mass/Vol] 105 mg/dL High 70-100 [facility] Comment on above: Performed By: #### 8 5499 ####[facility] [address] POC SARS COV2 ANTIGEN NEGATI VEon 03-09-2022 POC SARS COV2 ANTIGEN NEG Negative Normal NEGATIVE [facility] Comment on above: Result Comment: Nega [...] antigen from SARS-CoV-2 in direct nasopharyngeal swab (PROFESSOR OF FORESTRY) specimens from individuals who are suspected of [...] of Accreditation. Performed By: #### 3 2044 ####[facility] [address] PORTABLE CHEST 1 VIEWon 09-0 PORTABLE CHEST 1 VIEW [facility] Department of Radiology [address] [place] [id number] Patient Name: LISE CANALES : 1955 Sex: F Age: Race: White Pt. Location: [id number] Patient Status: I Ordered Date: 03/09/2022 8:55:00 [...] COPD. Electronically signed: Derek Ingram. Transcribed by: [email or web address], User Resident: Electronically Signed by: DEREK INGRAM @ 03/09/2022 02:48 PM Normal [facility] Comment on above: Order Comment: Check Chest Tube Position, S/P Chest tube DC'd TROPONIN-Ion 03-09-2022 Troponin I.cardiac [Mass/Vol] 0.00 ng/mL Normal 0.00-0.04 [facility] Comment on above: Order Comment: No: D o not add to previous draw Result Comment: REFE RENCE RANGES: 0.00 - 0.04 ng/ml NORMAL 0.05 - 0.50 ng/ml INDETERMINATE > 0.50 ng/ml CONSISTENT WITH AN M.I. Performed By: #### 3 5200, 45158, 84575, 52825 #### [facility] [address] [facility] [place] [address], [facility] Troponin I.cardiac [Mass/Vol] 0.01 ng/mL Normal 0.00-0.04 [facility] Comment on above: Order Comment: No: D o not add to previous draw Result Comment: REFE RENCE RANGES: 0.00 - 0.04 ng/ml NORMAL 0.05 - 0.50 ng/ml INDETERMINATE > 0.50 ng/ml CONSISTENT WITH AN M.I. Performed By: #### 3 5200 #### [facility] [address] [facility] [place] [address], [facility] Troponin I.cardiac [Mass/Vol] 0.00 ng/mL Normal 0.00-0.04 [facility] Comment on above: Order Comment: No: D o not add to previous draw Result Comment: REFE RENCE RANGES: 0.00 - 0.04 ng/ml NORMAL 0.05 - 0.50 ng/ml INDETERMINATE > 0.50 ng/ml CONSISTENT WITH AN M.I. Performed By: #### 3 5200, 68715, 73384, 13293 #### [facility] [address] [facility] [address] TSH3 WITH REFLEX FT4on 03-09 TSH 3RD GENERATION 0.60 uIU/mL Normal 0.34-5.60 [facility] Comment on above: Order Comment: No: D o not add to previous draw Performed By: #### 3 5200, 73589, 04498, 92925 #### [facility] [address] [place] [address], [facility] URINALYSIS REFLEXon 03-09-20 22 Appearance (U) CLEAR Normal CLEAR [facility] Comment on above: Order Comment: Check Chest Tube Position, S/P Chest tube DC'd Performed By: #### 3 0965 ####[facility] [facility] [place] [address], [facility] Bilirubin Ql (U) Negative Normal NEGATIVE [facility] Comment on above: Order Comment: Check Chest Tube Position, S/P Chest tube DC'd Performed By: #### 3 0965 ####[facility] [place] [address], [facility] Color (U) STRAW Abnormal YELLOW [facility] Comment on above: Order Comment: Check Chest Tube Position, S/P Chest tube DC'd Performed By: #### 3 0965 ####[facility] [facility] [place] [address], [facility] EPIS OCC Normal FEW,OCC,NONE SEEN [facility] Comment on above: Order Comment: Check Chest Tube Position, S/P Chest tube DC'd Performed By: #### 3 0965 ####[facility] [place] [address], [facility] Glucose Ql (U) Negative Normal NEGATIVE [facility] Comment on above: Order Comment: Check Chest Tube Position, S/P Chest tube DC'd Performed By: #### 3 0965 ####[facility] [place] [address], [facility] Hemoglobin Ql (U) MODERATE Abnormal NEGATIVE [facility] Comment on above: Order Comment: Check Chest Tube Position, S/P Chest tube DC'd Performed By: #### 3 0965 ####[facility] [facility].[address] KETONE Negative Normal NEGATIVE [facility] Comment on above: Order Comment: Check Chest Tube Position, S/P Chest tube DC'd Performed By: #### 3 0965 ####[facility] [facility].[address] LEUK SHARMIN SMALL Abnormal NEGATIVE [facility] Comment on above: Order Comment: Check Chest Tube Position, S/P Chest tube DC'd Performed By: #### 3 0965 ####[facility] [address] MUCUS THREADS OCC Abnormal NONE SEEN [facility] Comment on above: Order Comment: Check Chest Tube Position, S/P Chest tube DC'd Performed By: #### 3 0965 ####[facility] [address] Nitrite Ql (U) Negative Normal NEGATIVE [facility] Comment on above: Order Comment: Check Chest Tube Position, S/P Chest tube DC'd Performed By: #### 3 0965 ####[facility] [facility] [place] [address], [facility] pH (U) 6.0 [pH] Normal 5.0-8.0 [facility] Comment on above: Order Comment: Check Chest Tube Position, S/P Chest tube DC'd Performed By: #### 3 0965 ####[facility] [place] [address], [facility] Protein Ql (U) Negative Normal NEGATIVE [facility] Comment on above: Order Comment: Check Chest Tube Position, S/P Chest tube DC'd Performed By: #### 3 0965 ####[facility] [place] [id number], [place] RBC 6-10 Abnormal NONE SEEN [facility] Comment on above: Order Comment: Check Chest Tube Position, S/P Chest tube DC'd Performed By: #### 3 0965 ####[facility] [facility].[address] SPEC GRAV 1.015 Normal 1.015-1.020 [facility] Comment on above: Order Comment: Check Chest Tube Position, S/P Chest tube DC'd Performed By: #### 3 0965 ####[facility] [facility].[address] WBC UA 11-20 Abnormal NONE SEEN [facility] Comment on above: Order Comment: Check Chest Tube Position, S/P Chest tube DC'd Performed By: #### 3 0965 ####[facility] [facility].[address] CBC W MANUAL DIFFon 03-08-20 22 ATYPICAL LYMPH # Normal [facility] Comment on above: Performed By: #### C VDTBH #### [facility] Laboratory [address] [address] [address] Kayley Hatfield ATYPICAL LYMPH % Normal [facility] Comment on above: Performed By: #### C VDTBH #### [facility] Laboratory [address] [address] [address] Kayley Hatfield BAND # Normal 0.0-0.3 [facility] Comment on above: Performed By: #### C VDTBH #### [facility] Laboratory [address] [address] [address] Kayley Hatfield BAND % Normal 0-5 [facility] Comment on above: Performed By: #### C VDTBH #### [facility] Laboratory [address] [address] [address] Kayley Hatfield BASOM # 0.00 103/ul Normal 0.00-0.10 [facility] Comment on above: Performed By: #### C VDTBH #### [facility] Laboratory [address] [place] [address] Dr. Kayley Hatfield BASOM % 0.0 % Critically low 0.2-2.0 [facility] Comment on above: Performed By: #### C VDTBH #### [facility] Laboratory [address] [place] [address] Dr. Kayley Hatfield BLAST # Normal [facility] Comment on above: Performed By: #### C VDTBH #### [facility] Laboratory [address] [place] [address] Dr. Kayley Hatfield BLAST % Normal [facility] Comment on above: Performed By: #### C VDTBH #### [facility] Laboratory [address] [place] [address] Dr. Kayley Hatfield CORRECTED WBC Normal 4.0-11.0 [facility] Comment on above: Performed By: #### C VDTBH #### [facility] Laboratory [address] [place] [address] Dr. Kayley Hatfield EOS # 0.14 103/ul Normal 0.00-0.70 [facility] Comment on above: Performed By: #### C VDTBH #### [facility] Laboratory [address] [place] [address] Dr. Kayley Hatfield EOS% 1.0 % Normal 0.9-7.0 [facility] Comment on above: Performed By: #### C VDTBH #### [facility] Laboratory [address] [place] [address] Dr. Kayley Hatfield HCT 27.5 % Critically low 36.0-48.0 [facility] Comment on above: Performed By: #### C VDTBH #### [facility] Laboratory [address] [place] [address] Dr. Kayley Hatfield HGB 7.9 g/dl Critically low 12.0-16.0 [facility] Comment on above: Performed By: #### C VDTBH #### [facility] Laboratory [address] [place] [address] Dr. Kayley Hatfield LYMPHM # 1.42 103/ul Normal 1.20-3.80 [facility] Comment on above: Performed By: #### C VDTBH #### [facility] Laboratory [address] [address] [address] Kayley Hatfield LYMPHM% 10.0 % Critically low 20.5-60.0 [facility] Comment on above: Performed By: #### C VDTBH #### [facility] Laboratory [address] [address] [address] Kayley Hatifeld MCH 21.5 pg Critically low 26.7-34.0 [facility] Comment on above: Performed By: #### C VDTBH #### [facility] Laboratory [address] [address] [address] Kayley Hatfield MCHC 28.7 g/dl Critically low 29.9-35.2 [facility] Comment on above: Performed By: #### C VDTBH #### [facility] Laboratory [address] [place] [address] Dr. Kayley Hatfield MCV 74.7 fL Critically low 81.0-99.0 [facility] Comment on above: Performed By: #### C VDTBH #### [facility] Laboratory [address] [place] [address] Dr. Kayley Hatfield METAMYELOCYTE # Normal The [facility] Comment on above: Performed By: #### C VDTBH #### [facility] Laboratory [address] [place] [address] Dr. Kayley Hatfield METAMYELOCYTE % Normal The [facility] Comment on above: Performed By: #### C VDTBH #### [facility] [address] [place] [address] Dr. Kayley Hatfield MONOM# 2.13 103/ul Critically high 0.30-0.80 [facility] Comment on above: Performed By: #### C VDTBH #### [facility] Laboratory [address] [place] [address] Dr. Kayley Hatfield MONOM% 15.0 % Critically high 1.7-12.0 [facility] Comment on above: Performed By: #### C VDTBH #### [facility] Laboratory [address] [place] [address] Dr. Kayley Hatfield MPV 9.5 fL Normal 9.5-13.5 [facility] Comment on above: Performed By: #### C VDTBH #### [facility] [address] [place] [address] Dr. Kayley Hatfield MYELOCYTE # Normal [facility] Comment on above: Performed By: #### C VDTBH #### [facility] [address] [place] [address] Dr. Kayley Hatfield MYELOCYTE % Normal [facility] Comment on above: Performed By: #### C VDTBH #### [facility] [address] [place] [address] Dr. Kayley Hatfield NRBC Normal [facility] Comment on above: Performed By: #### C VDTBH #### [facility] [address] [place] [address] Dr. Kayley Hatfield PLT 180 103/ul Normal 150-450 [facility] Comment on above: Performed By: #### C VDTBH #### [facility] [address] [place] [address] Dr. Kayley Hatfield RBC 3.68 106/ul Critically low 4.20-5.40 [facility] Comment on above: Performed By: #### C VDTBH #### [facility] [address] [place] [address] Dr. Kayley Hatfield RDW 27.5 % Critically high 11.0-15.0 [facility] Comment on above: Performed By: #### C VDTBH #### [facility] [address] [place] [address] Dr. Kayley Hatfield SEG # 10.51 103/ul Critically high 1.40-6.50 [facility] Comment on above: Performed By: #### C VDTBH #### [facility] [address] [place] [address] Dr. Kayley Hatfield SEG % 74.0 % Normal 43.0-75.0 [facility] Comment on above: Performed By: #### C VDTBH #### [facility] [address] [place] [address] Dr. Kayley Hatfield WBC 14.2 103/ul Critically high 4.0-11.0 [facility] Comment on above: Performed By: #### C VDTBH #### [facility] [address] [place] [address] Dr. Kayley Hatfield PRBC LEUKOREDUCEDon 03-08-20 ABO and Rh group Nom (Bld) Cross Match Result Compatible Unit Blood Type O Pos Unit Number [id number] Status Information Transfused Product ID Red Blood Cells Product Code [id number] Cross Match Result Compatible Blood Bank Notes CALLED TO VIC IN ICU @1657 Unit Blood Type O Pos Unit Number [id number] Status Information Transfused Product ID Red Blood Cells Product Code [id number] Normal [facility] Comment on above: Performed By: #### P RBC #### [facility] Laboratory [address] [place] [address] Dr. Kayley Hatfield PROF CHEM 8 (BAS METB)on Anion gap [Moles/Vol] 10.1 mmol/L Normal [facility] Comment on above: Performed By: #### B [id number] #### [facility] [address] [place] [address] Dr. Kayley Hatfield Calcium [Mass/Vol] 8.8 mg/dL Normal 8.5-10.1 [facility] Comment on above: Performed By: #### B LDCX1 #### [facility] [address] [place] [address] Dr. Kayley Hatfield Chloride [Moles/Vol] 100 mmol/L Normal 98-107 [facility] Comment on above: Performed By: #### B LDCX1 #### [facility] [address] [place] [address] Dr. Kayley Hatfield CO2 [Moles/Vol] 34.2 mmol/L Critically high 21.0-32.0 [facility] Comment on above: Performed By: #### B LDCX1 #### [facility] [address] [place] [address] Dr. Kayley Hatfield EGFR-AF CITIZEN OF [place] >60 Normal >=60 [facility] Comment on above: Performed By: #### B LDCX1 #### [facility] [address] [address] [address] Kayley Hatfield EGFR-NON AF CITIZEN OF [place] >60 Normal >=60 [facility] Comment on above: Performed By: #### B LDCX1 #### [facility] [address] [address] [address] Kayley Hatfield Glucose [Mass/Vol] 107 mg/dL Critically high 74-106 [facility] Comment on above: Performed By: #### B LDCX1 #### [facility] [address] [address] [address] Kayley Hatfield Potassium [Moles/Vol] 4.3 mmol/L Normal 3.5-5.1 [facility] Comment on above: Performed By: #### B LDCX1 #### [facility] [address] [address] [address] Kayley Hatfield Sodium [Moles/Vol] 140 mmol/L Normal 136-145 [facility] Comment on above: Performed By: #### B LDCX1 #### [facility] [address] [address] [address] Kayley Hatfield Urea nitrogen [Mass/Vol] 15.0 mg/dL Normal 7.0-18.0 [facility] Comment on above: Performed By: #### B LDCX1 #### [facility] [address] [address] [address] Kayley Hatfield Urea nitrogen/Creatinine [Mass ratio] 19.0 mg/mg Normal [facility] Comment on above: Performed By: #### B LDCX1 #### [facility] [address] [address] [address] Kayley Hatfield XR CHEST 1 Von [...] MIGUE REYNOSO Date: 2022-03-08 07:02 Normal [facility] CBC W MANUAL DIFFon 03-07-20 22 ACANTHOCYTES SLIGHT Normal [facility] Comment on above: Performed By: #### B [id number] #### [facility] [address] [place] [address] Dr. Kayley Hatfield ANISOCYTOSIS 2+ Normal [facility] Comment on above: Performed By: #### B LDCX1 #### [facility] [address] [place] [address] Dr. Kayley Hatfield ATYPICAL LYMPH # Normal [facility] Comment on above: Performed By: #### B LDCX1 #### [facility] [address] [place] [address] Dr. Kayley Hatfield ATYPICAL LYMPH % Normal [facility] Comment on above: Performed By: #### B LDCX1 #### [facility] [address] [place] [address] Dr. Kayley Hatfield BAND # 0.0 103/ul Normal 0.0-0.3 [facility] Comment on above: Performed By: #### B LDCX1 #### [facility] [address] [place] [address] Dr. Kayley Hatfield BAND % 0 % Normal 0-5 [facility] Comment on above: Performed By: #### B LDCX1 #### [facility] [address] [place] [address] Dr. Kayley Hatfield BASOM # 0.00 103/ul Normal 0.00-0.10 [facility] Comment on above: Performed By: #### B LDCX1 #### [facility] [address] [place] [address] Dr. Kayley Hatfield BASOM % 0.0 % Critically low 0.2-2.0 [facility] Comment on above: Performed By: #### B LDCX1 #### [facility] [address] [address] [address] Kayley Hatfield BLAST # Normal [facility] Comment on above: Performed By: #### B LDCX1 #### [facility] [address] [address] [address] Kayley Hatfield BLAST % Normal [facility] Comment on above: Performed By: #### B LDCX1 #### [facility] [address] [address] [address] Kayley Hatfield ANDREE CELLS SLIGHT Normal [facility] Comment on above: Performed By: #### B LDCX1 #### [facility] [address] [address] [address] Kayley Hatfield CORRECTED WBC Normal 4.0-11.[address] [facility] Comment on above: Performed By: #### B LDCX1 #### [facility] [address] [place] [address] Dr. Kayley Hatfield EOS # 0.16 103/ul Normal 0.00-0.70 [facility] Comment on above: Performed By: #### B LDCX1 #### [facility] [address] [place] [address] Dr. Kayley Hatfield EOS% 1.0 % Normal 0.9-7.0 [facility] Comment on above: Performed By: #### B LDCX1 #### [facility] [address] [place] [address] Dr. Kayley Hatfield GIANT PLATELETS SEEN Normal The [facility] Comment on above: Performed By: #### B LDCX1 #### [facility] [address] [place] [address] Dr. Kayley Hatfield HCT 31.1 % Critically low 36.0-48.0 [facility] Comment on above: Performed By: #### B LDCX1 #### [facility] [address] [place] [address] Dr. Kayley Hatfield HGB 9.1 g/dl Critically low 12.0-16.0 [facility] Comment on above: Performed By: #### B LDCX1 #### [facility] [address] [address] [address] Kayley Hatfield HYPOCHROMASIA 1+ Normal [facility] Comment on above: Performed By: #### B LDCX1 #### [facility] [address] [address] [address] Kayley Hatfield LYMPHM # 2.09 103/ul Normal 1.20-3.80 [facility] Comment on above: Performed By: #### B LDCX1 #### [facility] [address] [address] [address] Kayley Hatfield LYMPHM% 13.0 % Critically low 20.5-60.0 [facility] Comment on above: Performed By: #### B LDCX1 #### [facility] [address] [place] [address] Dr. Kayley Hatfield MCH 21.4 pg Critically low 26.7-34.0 [facility] Comment on above: Performed By: #### B LDCX1 #### [facility] [address] [place] [address] Dr. Kayley Hatfield MCHC 29.3 g/dl Critically low 29.9-35.2 [facility] Comment on above: Performed By: #### B LDCX1 #### [facility] [address] [place] [address] Dr. Kayley Hatfield MCV 73.0 fL Critically low 81.0-99.0 [facility] Comment on above: Performed By: #### B LDCX1 #### [facility] [address] [address] [address] Kayley Hatfield METAMYELOCYTE # Normal The [facility] Comment on above: Performed By: #### B LDCX1 #### [facility] [address] [address] [address] Kayley Hatfield METAMYELOCYTE % Normal The [facility] Comment on above: Performed By: #### B LDCX1 #### [facility] [address] [address] [address] Kayley Hatfield MICROCYTOSIS SLIGHT Normal [facility] Comment on above: Performed By: #### B LDCX1 #### [facility] [address] [place] [address] Dr. Kayley Hatfield MONOM# 0.48 103/ul Normal 0.30-0.80 [facility] Comment on above: Performed By: #### B LDCX1 #### [facility] [address] [place] [address] Dr. Kayley Hatfield MONOM% 3.0 % Normal 1.7-12.0 [facility] Comment on above: Performed By: #### B LDCX1 #### [facility] [address] [place] [address] Dr. Kayley Hatfield MPV 8.9 fL Critically low 9.5-13.5 [facility] Comment on above: Performed By: #### B LDCX1 #### [facility] [address] [place] [address] Dr. Kayley Hatfield MYELOCYTE # Normal [facility] Comment on above: Performed By: #### B LDCX1 #### [facility] [address] [place] [address] Dr. Kayley Hatfield MYELOCYTE % Normal [facility] Comment on above: Performed By: #### B LDCX1 #### [facility] [address] [place] [address] Dr. Kayley Hatfield NRBC Normal [facility] Comment on above: Performed By: #### B LDCX1 #### [facility] [address] [place] [address] Dr. Kayley Hatfield PLT 243 103/ul Normal 150-450 [facility] Comment on above: Performed By: #### B LDCX1 #### [facility] [address] [place] [address] Dr. Kayley Hatfield RBC 4.26 106/ul Normal 4.20-5.40 [facility] Comment on above: Performed By: #### B LDCX1 #### [facility] [address] [place] [address] Dr. Kayley Hatfield RDW 27.1 % Critically high 11.0-15.0 [facility] Comment on above: Performed By: #### B LDCX1 #### [facility] [address] [place], [place] [address] Dr. Kayley Hatfield SEG # 13.36 103/ul Critically high 1.40-6.50 [facility] Comment on above: Performed By: #### B LDCX1 #### [facility] [address] [place], [place] [address] Dr. Kayley Hatfield SEG % 83.0 % Critically high 43.0-75.0 [facility] Comment on above: Performed By: #### B LDCX1 #### [facility] [address] [place], [place] [address] Dr. Kayley Hatfield WBC 16.1 103/ul Critically high 4.0-11.0 [facility] Comment on above: Performed By: #### B LDCX1 #### [facility] [address] [place], [place] [address] CHEST WO CONon [...] MALDONADO Date: 2022-03-07 09:42 Normal [facility] HEMOGLOBIN AND HEMATOCRITon 03-07-2022 Hematocrit (Bld) [Volume fraction] 31.8 % Critically low 36.0-48.0 [facility] Comment on above: Performed By: #### H GBHCT #### [facility] [address] [place] [address] Dr. Kayley Hatfield Hemoglobin (Bld) [Mass/Vol] 9.5 g/dL Critically low 12.0-16.0 [facility] Comment on above: Performed By: #### H GBHCT #### [facility] [address] [place] [address] Dr. Kayley Hatfield RETICULOCYTEon 03-07-2022 RETIC 1.92 % Normal 0.60-3.10 [facility] Comment on above: Performed By: #### O BSCRN #### [facility] Laboratory [address] [place] [address] Dr. Kayley Hatfield XR CHEST 1 Von [...] MALDONADO Date: 2022-03-07 12:54 Normal [facility] XR CHEST 1 V EXAM: [...] MALDONADO Date: 2022-03-07 07:10 Normal [facility] BNPon 03-06-2022 Natriuretic peptide B (Bld) [Mass/Vol] 441.0 pg/mL Normal <=900.0 [facility] Comment on above: Performed By: #### H GBHCT #### [facility] [address] [place] [address] Dr. Kayley Hatfield CBC AUTO DIFFon 03-06-2022 BASO # 0.1 103/ul Normal 0.0-0.1 [facility] Comment on above: Performed By: #### O BSCRN #### [facility] [address] [place] [address] Dr. Kayley Hatfield Basophils/100 WBC (Bld) 0.7 % Normal 0.2-2.0 [facility] Comment on above: Performed By: #### O BSCRN #### [facility] [address] [place] [address] Dr. Kayley Hatfield EO # 0.1 103/ul Normal 0.0-0.7 [facility] Comment on above: Performed By: #### O BSCRN #### [facility] [address] [place] [address] Dr. Kayley Hatfield Eosinophils/100 WBC (Bld) 0.7 % Critically low 0.9-7.0 [facility] Comment on above: Performed By: #### O BSCRN #### [facility] [address] [place] [address] Dr. Kayley Hatfield Erythrocyte distribution width (RBC) [Ratio] 20.0 % Critically high 11.0-15.0 [facility] Comment on above: Performed By: #### O BSCRN #### [facility] [address] [address] [address] Kayley Hatfield Hematocrit (Bld) [Volume fraction] 20.1 % Critically low 36.0-48.0 [facility] Comment on above: Performed By: #### O BSCRN #### [facility] [address] [address] [address] Kayley Hatfield Hemoglobin (Bld) [Mass/Vol] 4.9 g/dL Critically low 12.0-16.0 [facility] Comment on above: Performed By: #### O BSCRN #### [facility] [address] [address] [address] Kayley Hatfield IG # 0.12 10e3/ul Critically high 0.00-0.03 [facility] Comment on above: Performed By: #### O BSCRN #### [facility] [address] [place] [address] Dr. Kayley Hatfield IG % 0.8 % Critically high 0.0-0.5 [facility] Comment on above: Performed By: #### O BSCRN #### [facility] [address] [address] [address] Kayley Hatfield LYMPH # 1.0 103/ul Critically low 1.2-3.8 [facility] Comment on above: Performed By: #### O BSCRN #### [facility] [address] [address] [address] Kayley Hatfield Lymphocytes/100 WBC (Bld) 6.5 % Critically low 20.5-60.0 [facility] Comment on above: Performed By: #### O BSCRN #### [facility] [address] [address] [address] Kayley Hatfield MANUAL DIFF REQ NO Normal The [facility] Comment on above: Performed By: #### O BSCRN #### [facility] [address] [place] [address] Dr. Kayley Hatfield MCH (RBC) [Entitic mass] 15.2 pg Critically low 26.7-34.0 [facility] Comment on above: Performed By: #### O BSCRN #### [facility] [address] [place] [address] Dr. Kayley Hatfield MCHC (RBC) [Mass/Vol] 24.4 g/dL Critically low 29.9-35.2 [facility] Comment on above: Performed By: #### O BSCRN #### [facility] [address] [place] [address] Dr. Kayley Hatfield MCV (RBC) [Entitic vol] 62.2 fL Critically low 81.0-99.0 [facility] Comment on above: Performed By: #### O BSCRN #### [facility] [address] [place] [address] Dr. Kayley Hatfield MONO # 0.5 103/ul Normal 0.3-0.8 [facility] Comment on above: Performed By: #### O BSCRN #### [facility] [address] [place] [address] Dr. Kayley Hatfield Monocytes/100 WBC (Bld) 3.5 % Normal 1.7-12.0 [facility] Comment on above: Performed By: #### O BSCRN #### [facility] [address] [place] [address] Dr. Kayley Hatfield NEUT # 13.2 103/ul Critically high 1.4-6.5 [facility] Comment on above: Performed By: #### O BSCRN #### [facility] [address] [place] [address] Dr. Kayley Hatfield Neutrophils/100 WBC (Bld) 87.8 % Critically high 43.0-75.0 [facility] Comment on above: Performed By: #### O BSCRN #### [facility] [address] [place], [place] [address] Dr. Kayley Hatfield Platelet mean volume (Bld) [Entitic vol] 9.1 fL Critically low 9.5-13.5 [facility] Comment on above: Performed By: #### O BSCRN #### [facility] [address] [place] [address] Dr. Kayley Hatfield PLT 384 103/ul Normal 150-450 [facility] Comment on above: Performed By: #### O BSCRN #### [facility] [address] [place] [address] Dr. Kayley Hatfield RBC 3.23 106/ul Critically low 4.20-5.40 The [facility] Comment on above: Performed By: #### O BSCRN #### [facility] [address] [place] [address] Dr. Kayley Haftield WBC 15.1 103/ul Critically high 4.0-11.0 [facility] Comment on above: Performed By: #### O BSCRN #### [facility] [address] [place] [address] Dr. Kayley Hatfield CULTURE BLOODon 03-06-2022 Microscopic examination of blood, culture Culture Observations: NO GROWTH AT 5 DAYS. Normal [facility] Comment on above: Performed By: #### C VDTBH #### [facility] [address] [place] [address] Dr. Kayley Hatfield Performed By: #### B [id number] #### [facility] [address] [place] [address] Dr. Kayley Hatfield Covid-19 PCR ([facility])on 02-07 SARS-CoV-2 (COVID-19) RNA ELBA+probe Ql (Unsp spec) Not detected Normal NOT DETECTED [facility] Comment on above: Result Comment: [...] for this test is supported by the [place] of Health and Human Service's declaration that [...] Performed By: #### C VDTBH #### [facility] [address] [place] [address] Dr. Kayley DOBSON URINE PROFILEon 2 Bilirubin Ql (U) Negative Normal NEGATIVE [facility] Comment on above: Performed By: #### P RBC #### [facility] [address] [place] [address] Dr. Kayley Hatfield Clarity (U) CLEAR Normal CLEAR [facility] Comment on above: Performed By: #### P RBC #### [facility] [address] [place] [address] Dr. Kayley Hatfield Color (U) LT. YELLOW Normal YELLOW [facility] Comment on above: Performed By: #### P RBC #### [facility] [address] [place] [address] Dr. Kayley [place] A micrscopic examination will be performed if indicated. Normal [facility] Comment on above: Performed By: #### P RBC #### [facility] [address] [place] [address] Dr. Kayley Hatfield Glucose Ql (U) Negative Normal NEGATIVE [facility] Comment on above: Performed By: #### P RBC #### [facility] [address] [place] [address] Dr. Kayley Hatfield Hemoglobin Ql (U) Negative Normal NEGATIVE [facility] Comment on above: Performed By: #### P RBC #### [facility] [address] [place] [address] Dr. Kayley Hatfield Ketones Ql (U) Negative Normal NEGATIVE [facility] Comment on above: Performed By: #### P RBC #### [facility] [address] [place] [address] Dr. Kayley Hatfield LEUKOCYTES Negative Normal NEGATIVE [facility] Comment on above: Performed By: #### P RBC #### [facility] [address] [place] [address] Dr. Kayley Hatfield Nitrite Ql (U) Negative Normal NEGATIVE [facility] Comment on above: Performed By: #### P RBC #### [facility] [address] [place] [address] Dr. Kayley Hatfield pH (U) 6.0 [pH] Normal 5-9 [facility] Comment on above: Performed By: #### P RBC #### [facility] [address] [place] [address] Dr. Kayley Hatfield SPEC GRAVITY 1.010 Normal 1.005-<=1.025 The [facility] Comment on above: Performed By: #### P RBC #### [facility] [address] [place] [address] Dr. Kayley Hatfield UA PROTEIN Negative Normal NEGATIVE/ TRACE [facility] Comment on above: Performed By: #### P RBC #### [facility] [address] [place] [address] Dr. Kayley Hatfield UR MICRO IND NOT INDICATED Normal [facility] Comment on above: Performed By: #### P RBC #### [facility] [address] [place] [address] Dr. Kayley Hatfield Urobilinogen Qn (U) 0.2 {Lu'U}/dL Normal 0.2 - 1. 0 [facility] Comment on above: Performed By: #### P RBC #### [facility] [address] [place] [address] Dr. Kayley Hatfield FERRITINon 03-06-2022 Ferritin [Mass/Vol] 4.0 ng/mL Critically low 8.0-252.0 [facility] Comment on above: Performed By: #### O BSCRN #### [facility] [address] [place] [address] Dr. Kayley Hatfield IRON AND TIBCon 03-06-2022 % SATURATION 2.3 % Normal [facility] Comment on above: Performed By: #### C VDTBH #### [facility] [address] [place] [address] Dr. Kayley Hatfield Iron [Mass/Vol] 12.0 ug/dL Critically low 50.0-170.0 [facility] Comment on above: Performed By: #### C VDTBH #### [facility] [address] [address] [address] Kayley Hatfield TIBC DIRECT 532.0 ug/dL Critically high 250.0-450.0 [facility] Comment on above: Performed By: #### C VDTBH #### [facility] [address] [address] [address] Kayley Hatfield OCC BLD IMMUNO SCREENon 02-07 OCCULT BLOOD Negative Normal NEGATIVE [facility] Comment on above: Performed By: #### O BSCRN #### [facility] [address] [address] [address] Kayley Hatfield PROF 14(COMP METB)on 022 Albumin [Mass/Vol] 3.6 g/dL Normal 3.4-5.0 [facility] Comment on above: Performed By: #### H GBHCT #### [facility] [address] [place] [address] Dr. Kayley Hatfield Albumin/Globulin [Mass ratio] 1.2 {ratio} Normal [facility] Comment on above: Performed By: #### H GBHCT #### [facility] [address] [address] [address] Kayley Hatfield ALP [Catalytic activity/Vol] 71 U/L Normal 46-116 [facility] Comment on above: Performed By: #### H GBHCT #### [facility] [address] [address] [address] Kayley Hatfield ALT [Catalytic activity/Vol] 20 U/L Normal 14-59 [facility] Comment on above: Performed By: #### H GBHCT #### [facility] [address] [address] [address] Kayley Hatfield Anion gap [Moles/Vol] 9.8 mmol/L Normal [facility] Comment on above: Performed By: #### H GBHCT #### [facility] [address] [address] [address] Kayley Hatfield AST [Catalytic activity/Vol] 12 U/L Critically low 15-37 [facility] Comment on above: Performed By: #### H GBHCT #### [facility] [address] [address] [address] Kayley Hatfield Bilirubin [Mass/Vol] 0.4 mg/dL Normal 0.2-1.0 [facility] Comment on above: Performed By: #### H GBHCT #### [facility] [address] [address] [address] Kayley Hatfield Calcium [Mass/Vol] 9.0 mg/dL Normal 8.5-10.1 [facility] Comment on above: Performed By: #### H GBHCT #### [facility] [address] [address] [address] Kayley Hatfield Chloride [Moles/Vol] 99 mmol/L Normal 98-107 [facility] Comment on above: Performed By: #### H GBHCT #### [facility] [address] [address] [address] Kayley Hatfield CO2 [Moles/Vol] 31.5 mmol/L Normal 21.0-32.0 [facility] Comment on above: Performed By: #### H GBHCT #### [facility] [address] [address] [address] Kayley Hatfield Creatinine [Mass/Vol] 0.89 mg/dL Normal 0.55-1.02 [facility] Comment on above: Performed By: #### H GBHCT #### [facility] [address] [address] [address] Kayley Hatfield EGFR-AF CITIZEN OF [place] >60 Normal >=60 [facility] Comment on above: Performed By: #### H GBHCT #### [facility] [address] [address] [address] Kayley Hatfield EGFR-NON AF CITIZEN OF [place] >60 Normal >=60 [facility] Comment on above: Performed By: #### H GBHCT #### [facility] [address] [address] [address] Kayley Hatfield Globulin (S) [Mass/Vol] 3.1 g/dL Normal [facility] Comment on above: Performed By: #### H GBHCT #### [facility] [address] [address] [address] Kayley Hatfield Glucose [Mass/Vol] 174 mg/dL Critically high 74-106 [facility] Comment on above: Performed By: #### H GBHCT #### [facility] [address] [address] [address] Kayley Hatfield Potassium [Moles/Vol] 4.3 mmol/L Normal 3.5-5.1 [facility] Comment on above: Performed By: #### H GBHCT #### [facility] [address] [address] [address] Kayley Hatfield Protein [Mass/Vol] 6.7 g/dL Normal 6.4-8.2 [facility] Comment on above: Performed By: #### H GBHCT #### [facility] [address] [place] [address] Dr. Kayley Hatfield Sodium [Moles/Vol] 136 mmol/L Normal 136-145 [facility] Comment on above: Performed By: #### H GBHCT #### [facility] [address] [address] [address] Kayley Hatfield Urea nitrogen [Mass/Vol] 17.0 mg/dL Normal 7.0-18.0 [facility] Comment on above: Performed By: #### H GBHCT #### [facility] [address] [place] [address] Dr. Kayley Hatfield Urea nitrogen/Creatinine [Mass ratio] 19.1 mg/mg Normal [facility] Comment on above: Performed By: #### H GBHCT #### [facility] [address] [address] [address] Kayley Hatfield TROPONIN, HIGH SENSITIVITYon 03-06-2022 HSTROP 7.0 pg/mL Normal 4.0-51.3 [facility] Comment on above: Result Comment: CUT- OFF POINTS HAVE BEEN ESTABLISHED BASED ON THE FOURTH UNIVERSAL DEFINITIONS OF MYOCARDIAL INFARCTION. THE UPPER REFERENCE LIMIT (URL) OF TROPONIN, DEFINED THE 99TH PERCENTILE OF cTnI DISTRIBUTION IN A REFERENCE POPULATION, HAS BEEN CONFIRMED THE DECISION THRESHOLD FOR VA DIAGNOSIS. Performed By: #### H GBHCT #### [facility] [address] [address] [address] Kayley Hatfield TYPE AND SCREENon 03-06-2022 TYPE AND SCREEN Negative Normal [facility] Comment on above: Performed By: #### C VDTBH #### [facility] [address] [address] [address] Kayley Hatfield XR CHEST 1 Von [...] REYNOSO Date: 2022-03-06 16:10 Normal [facility] XR CHEST 1 V EXAMINATION: [...] by: MIGUE REYNOSO Date: 2022-03-06 14:39 Normal [facility] XR DEXA BONE DENSITYon 12-22 XR DEXA [...] REYNOSO Date: 2021-12-22 17:05 Normal [facility] CARDIAC ABDIAZIZ ADMITon 022 CK [Catalytic activity/Vol] 21 U/L Critically low 26-192 [facility] Comment on above: Performed By: #### B [id number] #### [facility] [address] [place] [address] Dr. Kayley Hatfield CK.MB [Mass/Vol] 1.00 ng/mL Normal <=3.60 [facility] Comment on above: Performed By: #### B LDCX1 #### [facility] [address] [address] [address] Kayley Hatfield HSTROP 11.6 pg/mL Normal 4.0-51.3 [facility] Comment on above: Result Comment: CUT- OFF POINTS HAVE BEEN ESTABLISHED BASED ON THE FOURTH UNIVERSAL DEFINITIONS OF MYOCARDIAL INFARCTION. THE UPPER REFERENCE LIMIT (URL) OF TROPONIN, DEFINED THE 99TH PERCENTILE OF cTnI DISTRIBUTION IN A REFERENCE POPULATION, HAS BEEN CONFIRMED THE DECISION THRESHOLD FOR VA DIAGNOSIS. Performed By: #### B LDCX1 #### [facility] [address] [address] [address] Kayley Hatfield ROD 48 ng/mL Normal 9-82 [facility] Comment on above: Performed By: #### B LDCX1 #### [facility] [address] [place] [address] Dr. Kayley Hatfield CBC AUTO DIFFon 12-14-2021 BASO # 0.1 103/ul Normal 0.0-0.1 [facility] Comment on above: Performed By: #### P RBC #### [facility] [address] [address] [address] Kayley Hatfield Basophils/100 WBC (Bld) 0.9 % Normal 0.2-2.0 [facility] Comment on above: Performed By: #### P RBC #### [facility] [address] [address] [address] Kayley Hatfield EO # 0.1 103/ul Normal 0.0-0.7 [facility] Comment on above: Performed By: #### P RBC #### [facility] [address] [address] [address] Kayley Hatfield Eosinophils/100 WBC (Bld) 0.5 % Critically low 0.9-7.0 [facility] Comment on above: Performed By: #### P RBC #### [facility] [address] [place] [address] Dr. Kayley Hatfield Erythrocyte distribution width (RBC) [Ratio] 15.4 % Critically high 11.0-15.0 [facility] Comment on above: Performed By: #### P RBC #### [facility] [address] [place] [address] Dr. Kayley Hatfield Hematocrit (Bld) [Volume fraction] 29.3 % Critically low 36.0-48.0 [facility] Comment on above: Performed By: #### P RBC #### [facility] [address] [place] [address] Dr. Kayley Hatfield Hemoglobin (Bld) [Mass/Vol] 8.3 g/dL Critically low 12.0-16.0 [facility] Comment on above: Performed By: #### P RBC #### [facility] [address] [place] [address] Dr. Kayley Hatfield IG # 0.05 10e3/ul Critically high 0.00-0.03 [facility] Comment on above: Performed By: #### P RBC #### [facility] [address] [place] [address] Dr. Kayley Hatfield IG % 0.4 % Normal 0.0-0.5 [facility] Comment on above: Performed By: #### P RBC #### [facility] [address] [address] [address] Kayley Hatfield LYMPH # 1.2 103/ul Normal 1.2-3.8 [facility] Comment on above: Performed By: #### P RBC #### [facility] [address] [address] [address] Kayley Hatfield Lymphocytes/100 WBC (Bld) 10.6 % Critically low 20.5-60.0 [facility] Comment on above: Performed By: #### P RBC #### [facility] [address] [address] [address] Kayley Hatfield MANUAL DIFF REQ NO Normal [facility] Comment on above: Performed By: #### P RBC #### [facility] [address] [place] [address] Dr. Kayley Hatfield MCH (RBC) [Entitic mass] 21.4 pg Critically low 26.7-34.0 [facility] Comment on above: Performed By: #### P RBC #### [facility] [address] [address] [address] Kayley Hatfield MCHC (RBC) [Mass/Vol] 28.3 g/dL Critically low 29.9-35.2 [facility] Comment on above: Performed By: #### P RBC #### [facility] [address] [place] [address] Dr. Kayley Hatfield MCV (RBC) [Entitic vol] 75.5 fL Critically low 81.0-99.0 [facility] Comment on above: Performed By: #### P RBC #### [facility] [address] [address] [address] Kayley Hatfield MONO # 0.9 103/ul Critically high 0.3-0.8 The [facility] Comment on above: Performed By: #### P RBC #### [facility] [address] [address] [address] Kayley Hatfield Monocytes/100 WBC (Bld) 7.6 % Normal 1.7-12.0 [facility] Comment on above: Performed By: #### P RBC #### [facility] [address] [address] [address] Kayley Hatfield NEUT # 9.2 103/ul Critically high 1.4-6.5 [facility] Comment on above: Performed By: #### P RBC #### [facility] [address] [address] [address] Kayley Hatfield Neutrophils/100 WBC (Bld) 80.0 % Critically high 43.0-75.0 [facility] Comment on above: Performed By: #### P RBC #### [facility] [address] [place] [address] Dr. Kayley Hatfield Platelet mean volume (Bld) [Entitic vol] 9.3 fL Critically low 9.5-13.5 [facility] Comment on above: Performed By: #### P RBC #### [facility] [address] [place] [address] Dr. Kayley Hatfield PLT 498 103/ul Critically high 150-450 The [facility] Comment on above: Performed By: #### P RBC #### [facility] [address] [place] [address] Dr. Kayley Hatfield RBC 3.88 106/ul Critically low 4.20-5.40 The [facility] Comment on above: Performed By: #### P RBC #### [facility] [address] [place] [address] Dr. Kayley Hatfield WBC 11.5 103/ul Critically high 4.0-11.0 [facility] Comment on above: Performed By: #### P RBC #### [facility] [address] [place] [address] Dr. Kayley Hatfield ER URINE PROFILEon 2 Bilirubin Ql (U) Negative Normal NEGATIVE [facility] Comment on above: Performed By: #### H GBHCT #### [facility] [address] [place] [address] Dr. Kayley Hatfield Clarity (U) CLEAR Normal CLEAR [facility] Comment on above: Performed By: #### H GBHCT #### [facility] [address] [place] [address] Dr. Kayley Hatfield Color (U) LT. YELLOW Normal YELLOW [facility] Comment on above: Performed By: #### H GBHCT #### [facility] [address] [place] [address] Dr. Kayley [place] A micrscopic examination will be performed if indicated. Normal [facility] Comment on above: Performed By: #### H GBHCT #### [facility] [address] [address] [address] Kayley Hatfield Glucose Ql (U) Negative Normal NEGATIVE [facility] Comment on above: Performed By: #### H GBHCT #### [facility] [address] [place] [address] Dr. Kayley Hatfield Hemoglobin Ql (U) TRACE-INTACT Abnormal NEGATIVE [facility] Comment on above: Performed By: #### H GBHCT #### [facility] [address] [place] [address] Dr. Kayley Hatfield Ketones Ql (U) Negative Normal NEGATIVE [facility] Comment on above: Performed By: #### H GBHCT #### [facility] [address] [place] [address] Dr. Kayley Hatfield LEUKOCYTES Negative Normal NEGATIVE [facility] Comment on above: Performed By: #### H GBHCT #### [facility] [address] [place] [address] Dr. Kayley Hatfield Nitrite Ql (U) Negative Normal NEGATIVE [facility] Comment on above: Performed By: #### H GBHCT #### [facility] [address] [place] [address] Dr. Kayley Hatfield pH (U) 6.5 [pH] Normal 5-9 [facility] Comment on above: Performed By: #### H GBHCT #### [facility] [address] [place] [address] Dr. Kayley Hatfield SPEC GRAVITY 1.015 Normal 1.005-<=1.025 [facility] Comment on above: Performed By: #### H GBHCT #### [facility] [address] [place] [address] Dr. Kayley Hatfield UA PROTEIN Negative Normal NEGATIVE/ TRACE [facility] Comment on above: Performed By: #### H GBHCT #### [facility] [address] [place] [address] Dr. Kayley Hatfield UR MICRO IND INDICATED Normal [facility] Comment on above: Performed By: #### H GBHCT #### [facility] [address] [place] [address] Dr. Kayley Hatfield Urobilinogen Qn (U) 0.2 {Lu'U}/dL Normal 0.2 - 1. 0 [facility] Comment on above: Performed By: #### H GBHCT #### [facility] [address] [place] [address] Dr. Kayley Hatfield PROF 14(COMP METB)on 022 Albumin [Mass/Vol] 3.2 g/dL Critically low 3.4-5.0 [facility] Comment on above: Performed By: #### B LDCX1 #### [facility] [address] [place] [address] Dr. Kayley Hatfield Albumin/Globulin [Mass ratio] 0.8 {ratio} Normal [facility] Comment on above: Performed By: #### B LDCX1 #### [facility] [address] [place] [address] Dr. Kayley Hatfield ALP [Catalytic activity/Vol] 72 U/L Normal 46-116 [facility] Comment on above: Performed By: #### B LDCX1 #### [facility] [address] [place] [address] Dr. Kayley Hatfield ALT [Catalytic activity/Vol] 24 U/L Normal 14-59 [facility] Comment on above: Performed By: #### B LDCX1 #### [facility] [address] [place] [address] Dr. Kayley Hatfield Anion gap [Moles/Vol] 13.0 mmol/L Normal [facility] Comment on above: Performed By: #### B LDCX1 #### [facility] [address] [place] [address] Dr. Kayley Hatfield AST [Catalytic activity/Vol] 18 U/L Normal 15-37 [facility] Comment on above: Performed By: #### B LDCX1 #### [facility] [address] [place] [address] Dr. Kayley Hatfield Bilirubin [Mass/Vol] 0.3 mg/dL Normal 0.2-1.0 [facility] Comment on above: Performed By: #### B LDCX1 #### [facility] [address] [place] [address] Dr. Kayley Hatfield Calcium [Mass/Vol] 9.9 mg/dL Normal 8.5-10.1 [facility] Comment on above: Performed By: #### B LDCX1 #### [facility] [address] [place] [address] Dr. Kayley Hatfield Chloride [Moles/Vol] 98 mmol/L Normal 98-107 [facility] Comment on above: Performed By: #### B LDCX1 #### [facility] [address] [place] [address] Dr. Kayley Hatfield CO2 [Moles/Vol] 29.8 mmol/L Normal 21.0-32.0 [facility] Comment on above: Performed By: #### B LDCX1 #### [facility] [address] [place] [address] Dr. Kayley Hatfield Creatinine [Mass/Vol] 1.23 mg/dL Critically high 0.55-1.02 [facility] Comment on above: Performed By: #### B LDCX1 #### [facility] [address] [place] [address] Dr. Kayley Hatfield EGFR-AF CITIZ[place] 53 mL/min/1.73m2 Critically low >=60 [facility] Comment on above: Performed By: #### B [id number] #### [facility] [address] [place] [address] Dr. Kayley Hatfield EGFR-NON AF CITIZEN OF [place] 44 mL/min/1.73m2 Critically low >=60 [facility] Comment on above: Performed By: #### B [id number] #### [facility] [address] [address] [address] Kayley Hatfield Globulin (S) [Mass/Vol] 3.9 g/dL Normal [facility] Comment on above: Performed By: #### B LDCX1 #### [facility] [address] [place] [address] Dr. Kayley Hatfield Glucose [Mass/Vol] 160 mg/dL Critically high 74-[address] [facility] Comment on above: Performed By: #### B LDCX1 #### [facility] [address] [place] [address] Dr. Kayley Hatfield Potassium [Moles/Vol] 3.8 mmol/L Normal 3.5-5.1 [facility] Comment on above: Performed By: #### B LDCX1 #### [facility] [address] [place] [address] Dr. Kayley Hatfield Protein [Mass/Vol] 7.1 g/dL Normal 6.4-8.2 [facility] Comment on above: Performed By: #### B LDCX1 #### [facility] [address] [place] [address] Dr. Kayley Hatfield Sodium [Moles/Vol] 137 mmol/L Normal 136-145 [facility] Comment on above: Performed By: #### B LDCX1 #### [facility] [address] [place] [address] Dr. Kayley Hatfield Urea nitrogen [Mass/Vol] 20.0 mg/dL Critically high 7.0-18.0 [facility] Comment on above: Performed By: #### B LDCX1 #### [facility] [address] [place] [address] Dr. Kayley Hatfield Urea nitrogen/Creatinine [Mass ratio] 16.3 mg/mg Normal [facility] Comment on above: Performed By: #### B LDCX1 #### [facility] [address] [place] [address] Dr. Kayley Hatfield TROPONIN, HIGH SENSITIVITYon 12-14-2021 HSTROP 11.3 pg/mL Normal 4.0-51.3 [facility] Comment on above: Result Comment: CUT- OFF POINTS HAVE BEEN ESTABLISHED BASED ON THE FOURTH UNIVERSAL DEFINITIONS OF MYOCARDIAL INFARCTION. THE UPPER REFERENCE LIMIT (URL) OF TROPONIN, DEFINED THE 99TH PERCENTILE OF cTnI DISTRIBUTION IN A REFERENCE POPULATION, HAS BEEN CONFIRMED THE DECISION THRESHOLD FOR VA DIAGNOSIS. Performed By: #### P RTELEC #### [facility] [address] [address] [address] Kayley Hatfield URINE MICROSCOPIC ONLYon BACTERIA NONE SEEN Normal NONE SEEN [facility] Comment on above: Performed By: #### H GBHCT #### [facility] [address] [place] [address] Dr. Kayley Hatfield Bacteria identified Cx Nom (U) NOT INDICATED Normal [facility] Comment on above: Performed By: #### H GBHCT #### [facility] [address] [place] [address] Dr. Kayley Hatfield CAST SEEN Abnormal NONE SEEN [facility] Comment on above: Performed By: #### H GBHCT #### [facility] [address] [address] [address] Kayley Hatfield Crystals LM Nom (Urine sed) NONE SEEN Normal NONE SEEN [facility] Comment on above: Performed By: #### H GBHCT #### [facility] [address] [place] [address] Dr. Kayley Hatfield Epithelial cells LM Ql (Urine sed) FEW Abnormal NONE SEEN /RARE [facility] Comment on above: Performed By: #### H GBHCT #### [facility] [address] [place] [address] Dr. Kayley Hatfield HYALINE CAST RARE Normal [facility] Comment on above: Performed By: #### H GBHCT #### [facility] [address] [place] [address] Dr. Kayley Hatfield MUCOUS NONE SEEN Normal NONE SEEN [facility] Comment on above: Performed By: #### H GBHCT #### [facility] [address] [place] [address] Dr. Kayley Hatfield RBC 0-2 Normal 0-2 [facility] Comment on above: Performed By: #### H GBHCT #### [facility] [address] [place] [address] Dr. Kayley Hatfield WBC 0-2 Abnormal NONE SEEN [facility] Comment on above: Performed By: #### H GBHCT #### [facility] [address] [place] [address] Dr. Kayley Hatfield XR CHEST 1 Von [...] MALDONADO Date: 2021-12-14 13:43 Normal [facility] BUNon 12-12-2021 Urea nitrogen [Mass/Vol] 15.0 mg/dL Normal 7.0-18.0 [facility] Comment on above: Performed By: #### P RBC #### [facility] [address] [place] [address] Dr. Kayley Hatfield CALCIUMon 12-12-2021 Calcium [Mass/Vol] 9.1 mg/dL Normal 8.5-10.1 [facility] Comment on above: Performed By: #### C VDTBH #### [facility] [address] [place] [address] Dr. Kayley Hatfield CREATININEon 12-12-2021 Creatinine [Mass/Vol] 1.05 mg/dL Critically high 0.55-1.02 [facility] Comment on above: Performed By: #### P RBC #### [facility] [address] [place] [address] Dr. Kayley Hatfield EGFR-AF CITIZEN OF [place] >60 Normal >=60 [facility] Comment on above: Performed By: #### P RBC #### [facility] [address] [place] [address] Dr. Kayley Hatfield EGFR-NON AF CITIZEN OF [place] 53 mL/min/1.73m2 Critically low >=60 [facility] Comment on above: Performed By: #### P RBC #### [facility] [address] [place] [address] Dr. Kayley Hatfield CRPon 12-12-2021 CRP [Mass/Vol] mg/L Normal <=1.0 [facility] Comment on above: Performed By: #### P RBC #### [facility] [address] [address] [address] Kayley Hatfield MAGNESIUMon 12-12-2021 Magnesium [Mass/Vol] 1.9 mg/dL Normal 1.8-2.4 [facility] Comment on above: Performed By: #### C VDTBH #### [facility] [address] [place] [address] Dr. Kayley Hatfield PHOSPHORUSon 12-12-2021 Phosphate [Mass/Vol] 4.1 mg/dL Normal 2.6-4.7 [facility] Comment on above: Performed By: #### C VDTBH #### [facility] [address] [place] [address] Dr. Kayley Hat[facility] 35 mm/hr Critically high <=30 The [facility] Comment on above: Performed By: #### P RTELEC #### [facility] [address] [place] [address] Dr. Kayley Hatfield Vital Signs Date Time Vital Sign Value Performing Clinician Facility 11-20-2024 10:50-0400 Body height 165.1 cm Erasto Burroughs MD Work Phone: [facility] 11-20-2024 10:50-0400 Body mass index (BMI) [Ratio] 15.48 kg/m2 Erasto Burroughs MD Work Phone: [facility] 11-20-2024 10:50-0400 Body temperature 97.11 [degF] Erasto Burroughs MD Work Phone: [facility] 11-20-2024 10:50-0400 Body weight 42.19 kg Erasto Burroughs MD Work Phone: [facility] 11-20-2024 10:50-0400 Diastolic blood pressure 60 mm[Hg] Erasto Burroughs MD Work Phone: [facility] 11-20-2024 10:50-0400 Heart rate 94 /min Erasto Burroughs MD Work Phone: [facility] 11-20-2024 10:50-0400 Respiratory rate 24 /min Erasto Burroughs MD Work Phone: [facility] 11-20-2024 10:50-0400 SaO2% (BldA) [Mass fraction] 96 % Erasto Burroughs MD Work Phone: [facility] 11-20-2024 10:50-0400 Systolic blood pressure 158 mm[Hg] Erasto Burroughs MD Work Phone: [facility] 10-09-2024 13:13-0400 Body height 165.1 cm Erasto Burroughs MD Work Phone: [facility] 10-09-2024 13:13-0400 Body mass index (BMI) [Ratio] 15.64 kg/m2 Erasto Burroughs MD Work Phone: [facility] 10-09-2024 13:13-0400 Body temperature 97.5 [degF] Erasto Burroughs MD Work Phone: [facility] 10-09-2024 13:13-0400 Body weight 42.64 kg Erasto Burroughs MD Work Phone: [facility] 10-09-2024 13:13-0400 Diastolic blood pressure 76 mm[Hg] Erasto Burroughs MD Work Phone: [facility] 10-09-2024 13:13-0400 Heart rate 109 /min Erasto Burroughs MD Work Phone: [facility] 10-09-2024 13:13-0400 Respiratory rate 22 /min Erasto Burroughs MD Work Phone: [facility] 10-09-2024 13:13-0400 SaO2% (BldA) [Mass fraction] 97 % Erasto Burroughs MD Work Phone: [facility] 10-09-2024 13:13-0400 Systolic blood pressure 130 mm[Hg] Erasto Burroughs MD Work Phone: [facility] 08-28-2024 14:50-0500 Body height 165.1 cm Erasto Burroughs MD Work Phone: [facility] 08-28-2024 14:50-0500 Body mass index (BMI) [Ratio] 16.97 kg/m2 Erasto Burroughs MD Work Phone: [facility] 08-28-2024 14:50-0500 Body temperature 97.11 [degF] Erasto Burroughs MD Work Phone: [facility] 08-28-2024 14:50-0500 Body weight 46.27 kg Erasto Burroughs MD Work Phone: [facility] 08-28-2024 14:50-0500 Diastolic blood pressure 40 mm[Hg] Erasto Burroughs MD Work Phone: [facility] 08-28-2024 14:50-0500 Heart rate 123 /min Erasto Burroughs MD Work Phone: [facility] 08-28-2024 14:50-0500 Respiratory rate 20 /min Erasto Burroughs MD Work Phone: [facility] 08-28-2024 14:50-0500 SaO2% (BldA) [Mass fraction] 94 % Erasto Burroughs MD Work Phone: [facility] 08-28-2024 14:50-0500 Systolic blood pressure 120 mm[Hg] Erasto Burroughs MD Work Phone: [facility] 07-17-2024 15:22-0500 Body mass index (BMI) [Ratio] 19.6 kg/m2 Erasto Burroughs MD Work Phone: [facility] 01-09-2025 15:22-0500 Body temperature 96.69 [degF] Erasto Burroughs MD Work Phone: [facility] 07-17-2024 15:22-0500 Body weight 53.43 kg Erasto Burroughs MD Work Phone: [facility] 07-17-2024 15:22-0500 Diastolic blood pressure 62 mm[Hg] Erasto Burroughs MD Work Phone: [facility] 07-17-2024 15:22-0500 Heart rate 76 /min Erasto Burroughs MD Work Phone: [facility] 07-17-2024 15:22-0500 SaO2% (BldA) [Mass fraction] 95 % Erasto Burroughs MD Work Phone: [facility] 07-17-2024 15:22-0500 Systolic blood pressure 150 mm[Hg] Erasto Burroughs MD Work Phone: [facility] 06-26-2024 11:32-0500 Body height 165.1 cm Erasto Burroughs MD Work Phone: [facility] 06-26-2024 11:32-0500 Body mass index (BMI) [Ratio] 18.14 kg/m2 Erasto Burroughs MD Work Phone: [facility] 06-26-2024 11:32-0500 Body temperature 97.11 [degF] Erasto Burroughs MD Work Phone: [facility] 06-26-2024 11:32-0500 Body weight 49.44 kg Erasto Burroughs MD Work Phone: [facility] 06-26-2024 11:32-0500 Diastolic blood pressure 58 mm[Hg] Erasto Burroughs MD Work Phone: [facility] 06-26-2024 11:32-0500 Heart rate 124 /min Erasto Burroughs MD Work Phone: [facility] 06-26-2024 11:32-0500 SaO2% (BldA) [Mass fraction] 98 % Erasto Burroughs MD Work Phone: [facility] 06-26-2024 11:32-0500 Systolic blood pressure 110 mm[Hg] Erasto Burroughs MD Work Phone: [facility] 06-26-2023 15:27-0500 Diastolic blood pressure 103 mm[Hg] MD Erasto Burroughs Work Phone: [facility] 06-26-2023 15:27-0500 Heart rate 81 /min MD Erasto Burroughs Work Phone: [facility] 06-26-2023 15:27-0500 Respiratory rate 18 /min MD Erasto Burroughs Work Phone: [facility] 06-26-2023 15:27-0500 SaO2% (BldA) [Mass fraction] 95 % MD Erasto Burroughs Work Phone: [facility] 06-26-2023 15:27-0500 Systolic blood pressure 162 mm[Hg] MD Erasto Burroughs Work Phone: [facility] 06-26-2023 13:44-0500 Body height 162.56 cm MD Erasto Burroughs Work Phone: [facility] 06-26-2023 13:44-0500 Body weight 59.87 kg MD Erasto Burroughs Work Phone: [facility] 06-26-2023 13:44-0500 Inhaled oxygen flow rate 2 L/min MD Erasto Burroughs Work Phone: [facility] Encounters Encounter Date Encounter Type Care Provider Facility Start: 12-02-2024 End: 12-02-2024 Clinisync Result Encounter Generic External Data Provider [facility] External Department Unsolicited Start: 12-02-2024 End: 12-02-2024 Clinisync Result Encounter Generic External Data Provider [facility] External Department Unsolicited Start: 11-20-2024 End: 11-20-2024 Bamboo flowsheet Erasto Burroughs MD Work Phone: [facility] Start: 11-20-2024 End: 11-20-2024 Bamboo flowsheet Erasto Burroughs MD Work Phone: [facility] Start: 11-20-2024 End: 11-20-2024 Office outpatient visit 25 minutes Erasto Burroughs MD Work Phone: [facility] Comment on above: Bullous emphysema (C MS/HCC) (Primary Dx); Degeneration of intervertebral disc of lumbar region with discogenic back pain and lower extremity pain; Lumbar radiculopathy; Numbness; Leg pain, left; Leg pain, right; Bilateral leg weakness Start: 11-20-2024 End: 11-20-2024 ambulatory ERASTO BURROUGHS Not Available Start: 11-10-2024 End: 11-10-2024 ambulatory Ihsan BROWN Facility:[facility] Start: 11-06-2024 End: 11-06-2024 Refill Erasto Burroughs MD Work Phone: [facility] Comment on above: Degeneration of inte rvertebral disc of lumbar region with discogenic back pain and lower extremity pain Start: 10-29-2024 End: 10-29-2024 Refill Erasto Burroughs MD Work Phone: [facility] Comment on above: DDD (degenerative di sc disease), lumbar Start: 10-27-2024 End: 10-27-2024 Clinisync Result Encounter Generic External Data Provider [facility] External Department Unsolicited Start: 10-27-2024 End: 10-27-2024 Clinisync Result Encounter Generic External Data Provider [facility] External Department Unsolicited Start: 10-21-2024 End: 10-21-2024 Refill Erasto Burroughs MD Work Phone: [facility] Comment on above: Degeneration of inte rvertebral disc of lumbar region with discogenic back pain and lower extremity pain Start: 10-10-2024 End: 10-10-2024 Clinisync Result Encounter Generic External Data Provider [facility] External Department Unsolicited Start: 10-10-2024 End: 10-10-2024 Clinisync Result Encounter Generic External Data Provider [facility] External Department Unsolicited Start: 10-09-2024 End: 10-09-2024 Bamboo flowsheet Erasto Burroughs MD Work Phone: [facility] Start: 10-09-2024 End: 10-09-2024 Bamboo flowsheet Erasto Burroughs MD Work Phone: [facility] Start: 10-09-2024 End: 10-09-2024 ambulatory ERASTO BURROUGHS Not Available Start: 10-09-2024 End: 10-09-2024 Office outpatient visit 25 minutes Erasto Burroughs MD Work Phone: [facility] Comment on above: Degeneration of inte rvertebral disc of lumbar region with discogenic back pain and lower extremity pain (Primary Dx); Type 2 diabetes mellitus with hyperglycemia, without long-term current use of insulin ([facility]); Essential hypertension, benign ([facility]/HCC); Dyslipidemia ([facility]); Encounter for long-term (current) use of medications Start: 08-28-2024 End: 08-28-2024 Office outpatient visit 15 minutes Erasto Burroughs MD Work Phone: [facility] Comment on above: Acute bronchitis due to other specified organisms (Primary Dx); Chronic obstructive pulmonary disease, unspecified COPD type (CMS/HCC) Start: 08-28-2024 End: 08-28-2024 ambulatory ERASTO BURROUGHS [...] lung (Primary Dx); COPD with acute exacerbation (CMS/HCC); Pleurisy Start: 07-17-2024 End: 07-17-2024 ambulatory ERASTO BURROUGHS Not Available Start: 07-17-2024 End: 07-17-2024 Bamboo flowsheet Erasto Burroughs MD Work Phone: [facility] Start: 07-17-2024 End: 07-17-2024 Bamboo flowsheet Erasto Burroughs MD Work Phone: [facility] Start: 07-09-2024 End: 07-09-2024 ambulatory Gt Easton fahad [facility] Work Phone: Start: 07-09-2024 End: 07-09-2024 Departed Referred Gt Wyatt MD Work Phone: [facility] Start: 07-08-2024 End: 07-08-2024 ambulatory Gt Wilburnfahad [facility] Work Phone: Start: 07-08-2024 End: 07-08-2024 Departed Referred Gt Wyatt MD Work Phone: [facility] Start: 07-07-2024 End: 07-09-2024 Clinisync Result [...] unspecified fever cause; COPD with acute exacerbation ([facility]) Start: 06-26-2024 End: 06-26-2024 ambulatory ERASTO BURROUGHS Not Available Start: 06-08-2024 End: 06-08-2024 Non-patient / Non-visit Gt Wyatt MD Work Phone: [facility] Work Phone: Start: 06-07-2024 End: 06-10-2024 Clinisync [...] Start: 05-12-2024 End: 05-12-2024 ambulatory Ihsan BROWN Facility:[facility] Start: 04-29-2024 End: 04-30-2024 Refill Erasto Burroughs MD Work Phone: [facility] Comment on above: DDD (degenerative di sc disease), lumbar Start: 03-12-2024 End: 03-12-2024 Orders Only Erasto Burroughs MD Work Phone: [facility] Comment on above: Type 2 diabetes vickey itus with hyperglycemia, without long-term current use of insulin ([facility]) (Primary Dx) Start: 03-11-2024 End: 03-12-2024 Clinisync Result Encounter Erasto Burroughs MD Work Phone: [facility] Unsolicited Start: 03-11-2024 End: 03-12-2024 Clinisync Result Encounter Erasto Burroughs MD Work Phone: [facility] External [facility] Unsolicited Start: 02-21-2024 End: 02-21-2024 ambulatory ERASTO BURROUGHS Not Available Start: 01-07-2024 End: 01-07-2024 ambulatory [facility] Start: 08-18-2023 Refill Erasto Leggett Work Phone: [facility] Comment on above: DDD (degenerative di sc disease), lumbar (Primary Dx) Start: 06-27-2023 ambulatory [facility] Start: 06-26-2023 End: 06-26-2023 Admission to same day surgery center MD Erasto Burroughs Work Phone: [facility] Work Phone: Start: 06-26-2023 End: 06-26-2023 ambulatory MD Erasto Burroughs Work Phone: [facility] Work Phone: Start: 06-05-2023 Evaluation and manag ement of inpatient [facility] Start: 06-05-2023 Evaluation and manag ement of inpatient [facility] Start: 06-05-2023 Evaluation and manag ement of inpatient [facility] Start: 06-04-2023 End: 06-06-2023 Evaluation and management of inpatient AVINASH SERRANO [facility] Start: 10-31-2022 End: 11-01-[address] ERASTO BURROUGHS Facility:[facility] Start: 10-10-2022 End: 10-11-[address] ERASTO BURROUGHS Facility:[facility] Start: 05-01-2022 End: 05-02-[address] ERASTO BURROUGHS Facility:[facility] Start: 05-01-[address] ERASTO BURROUGHS Facil ity:[facility] Start: 04-25-2022 End: 04-26-[address] ERASTO BURROUGHS Facility:[facility] Start: 04-04-2022 Encounter for genera l adult medical examination without abnormal findings DR ERASTO BURROUGHS [facility] Start: 03-30-[address] ERASTO BURROUGHS [facility] ity:[facility] Start: 03-29-2022 Encounter for genera l adult medical examination without abnormal findings DR ERASTO BURROUGHS [facility] Start: 03-28-2022 End: 03-30-2022 Evaluation and management of inpatient DR ERASTO BURROUGHS Facility:[facility] Start: 03-28-2022 End: 03-29-[address] ERASTO BURROUGHS Facility:[facility] Start: 03-28-2022 End: 03-29-2022 Encounter for general adult medical examination without abnormal findings DR ERASTO BURROUGHS Facility:[facility] Start: 03-08-2022 End: 03-15-2022 Evaluation and management of inpatient VALERIO ALI Facility:[facility] Start: 03-06-2022 End: 03-08-2022 Evaluation and management of inpatient DR ERASTO BURROUGHS Facility:[facility] Start: 12-22-2021 End: 12-23-[address] ERASTO BURROUGHS Facility:[facility] Start: 12-14-2021 End: 12-14-[address] ERASTO BURROUGHS Facility:[facility] Start: 12-12-2021 End: 12-13-[address] ERASTO BURROUGHS Facility:[facility] Procedures Date Procedure Procedure Detail Performing Clinician Start: 12-02-2024 ALL SED RATE Generic External Data Provider Start: 10-27-2024 MR LUMBAR SPINE WO CON Generic External Data Provider Start: 10-10-2024 XR LUMBAR SPINE MIN 4V Generic External Data Provider Start: 07-08-2024 Gram stain microscopy Gt Wyatt [...] for malign ant neoplasm of colon [facility] Start: 04-15-2026 Glaucoma screening Diabetes: R etinopathy Screening [facility] Start: 10-10-2025 Urine screening for protein Diabetes: Urine Protein Screening [facility] Start: 03-09-2025 Influenza vaccination Influenz a Vaccine (Season Ended) [facility] Start: 01-12-2025 End: 01-12-2025 Patient encounter procedure 01/12/2025 1:45 PM EDT Office Visit [facility] [address] [place] [address] Erasto Burroughs MD [address] [place] [address] [facility] Start: 01-08-2025 End: 01-08-2025 Patient encounter procedure 01/08/2025 12:45 PM EDT Office Visit [facility] [address] [place] [address] June Beck DO [address] [place] [address] [facility] Start: 12-12-2024 End: 12-12-2024 Patient encounter procedure 12/12/2024 1:15 PM EDT Procedure Visit [facility] [address] [place] [address] Abdiaziz Thomas MD [address] [facility] [address] [place] [address] [facility] Start: 11-20-2024 End: 11-20-2025 EMG AND NERVE CONDUCTION STUDY EMG AND NERVE CONDUCTION STUDY Neurology Routine Numbness Leg pain, left Leg pain, right Bilateral leg weakness Expected: 11/20/2024 (Approximate), Expires: 11/20/2025 [facility] Work Phone: Comment on above: Expected: 11/20/2024 (Approximate), Expires: 11/20/2025 Start: 11-20-2024 End: 11-20-2024 Patient encounter procedure 11/20/2024 10:45 AM EDT Office Visit [facility] [address] [place] [address] Erasto Burroughs MD [address] [place] [address] Arrived [facility] Comment on above: Arrived Start: 10-09-2024 End: 10-09-2025 Basic metabolic 1998 panel - Serum or Plasma Basic metabolic panel Lab Routine Essential hypertension, benign (CMS/HCC) Expected: 10/09/2024 (Approximate), Expires: 10/09/2025 [facility] Comment on above: Expected: 10/09/2024 (Approximate), Expires: 10/09/2025 Start: 10-09-2024 End: 10-09-2025 CBC W Auto Differential panel - Blood CBC and differential Lab Routine Encounter for long-term (current) use of medications Expected: 10/09/2024 (Approximate), Expires: 10/09/2025 [facility] [facility] Comment on above: Expected: 10/09/2024 (Approximate), Expires: 10/09/2025 Start: 10-09-2024 End: 10-09-2025 Hemoglobin A1c/Hemoglobin.total in Blood Hemoglobin A1c Lab Routine Type 2 diabetes mellitus with hyperglycemia, without long-term current use of insulin ([facility]) Expected: 10/09/2024 (Approximate), Expires: 10/09/2025 [facility] Comment on above: Expected: 10/09/2024 (Approximate), Expires: 10/09/2025 Start: 10-09-2024 End: 10-09-2025 Hepatic function 2000 panel - Serum or Plasma Hepatic function panel Lab Routine Encounter for long-term (current) use of medications Expected: 10/09/2024 (Approximate), Expires: 10/09/2025 [facility] Comment on above: Expected: 10/09/2024 (Approximate), Expires: 10/09/2025 Start: 10-09-2024 End: 10-09-2025 Lipid 1996 panel - Serum or Plasma Lipid panel Lab Routine Dyslipidemia ([facility]) Expected: 10/09/2024 (Approximate), Expires: 10/09/2025 [facility] Comment on above: Expected: 10/09/2024 (Approximate), Expires: 10/09/2025 Start: 10-09-2024 End: 10-09-2025 Microalbumin/Creatinine panel in random Urine Microalbumin / creatinine, urine ratio Lab Routine Type 2 diabetes mellitus with hyperglycemia, without long-term current use of insulin ([facility]) Expected: 10/09/2024 (Approximate), Expires: 10/09/2025 [facility] Work Phone: Comment on above: Expected: 10/09/2024 (Approximate), Expires: 10/09/2025 Start: 10-09-2024 End: 10-09-2024 Patient encounter procedure 10/09/2024 1:00 PM EDT Office Visit [facility] [address] [place] [address] Erasto Burroughs MD [address] [place] [phone] [facility] Start: 09-08-2024 Hemoglobin A1c measurement Diabetes: Hemoglobin A1C [facility] Start: 08-28-2024 End: 08-28-2024 Patient encounter procedure 08/28/2024 2:45 PM EST Office Visit [facility] [address] [place] [phone] Erasto Burroughs MD [address] [place] [phone] Arrived [facility] Comment on above: Arrived Start: 08-28-2024 End: 08-28-2025 XR Chest 2 Views XR chest 2 views Imaging STAT Acute bronchitis due to other specified organisms Chronic obstructive pulmonary disease, unspecified COPD type ([facility]) Expected: 08/28/2024, Expires: 08/28/2025 [facility] Work Phone: Comment on above: Expected: 08/28/2024 , Expires: 08/28/2025 Start: 07-17-2024 End: 07-17-2024 Patient encounter procedure 07/17/2024 3:15 PM EST Office Visit [facility] [address] [place] [address] Erasto Burroughs MD [address] [place] [phone] Arrived [facility] Comment on above: Arrived Start: 07-11-2024 End: 07-11-2024 Patient encounter procedure 07/11/2024 11:45 AM EST Office Visit [facility] [address] [place] [phone] Erasto Burroughs MD [address] [place] [phone] [facility] Start: 01-01-2025 Bacteria identified in Urine by Culture Urine Culture [facility] Start: 07-09-2024 Urine culture [facility] Start: 07-08-2024 Aerobic Culture Aerobic Culture [facility] Start: 07-08-2024 Aerobic microbial culture Aerobic Culture [facility] Start: 07-08-2024 Microbial culture of sputum [facility] Start: 06-26-2024 End: 06-26-2024 Patient encounter procedure 06/26/2024 11:30 AM EST Office Visit [facility] [address] [place] [address] Erasto Burroughs MD [address] [place] [phone] Arrived [facility] Comment on above: Arrived Start: 06-06-2024 Urine screening for protein Diabetes: Urine Protein Screening [facility] Start: 05-27-2024 End: 05-27-2024 Patient encounter procedure 05/27/2024 1:30 PM EST Office Visit [facility] [address] [place] [address] Erasto Burroughs MD [address] [place] [phone] [facility] Start: 03-09-2024 Influenza vaccination Influenza Vacc ine (#1) [facility] Start: 12-04-2023 Hemoglobin A1c measurement Diabetes: Hemoglobin A1C [facility] Start: 09-05-2023 Hemoglobin A1c measurement Diabetes: Hemoglobin A1C [facility] Start: 08-27-2023 End: 08-27-2023 Patient encounter procedure 08/27/2023 2:30 PM EST Office Visit [facility] [address] [place] [address] Erasto Burroughs MD [address] [place] [phone] [facility] Start: 06-26-2023 [facility] Start: 03-09-2023 Influenza vaccination Influenza Vacc ine (#1) [facility] Start: 1997 Screening for malign ant neoplasm of breast Mammogram [facility] Start: 1976 Urine screening for protein Diabetes: Urine Protein Screening [facility] Start: 1967 Glaucoma screening Diabetes: R etinopathy Screening [facility] Start: 1957 Medicare Annual Wellness (AWV) Medicare Annual Wellness (AWV) [facility] Start: 1957 Screening for malign ant neoplasm of colon [facility] BLOOD CULTURE 1 BLOOD CULTURE 1 Lab Routine 06/06/2024 10:14 AM EST [facility] BLOOD CULTURE 1 BLOOD CULTURE 1 Lab Routine 06/26/2024 12:25 PM EST [facility] BLOOD CULTURE 1 BLOOD CULTURE 1 Lab Routine 07/07/2024 1:37 PM EST [facility] BLOOD CULTURE 2 BLOOD CULTURE 2 Lab Routine 06/06/2024 10:21 AM EST [facility] BLOOD CULTURE 2 BLOOD CULTURE 2 Lab Routine 06/26/2024 2:51 PM EST [facility] BLOOD CULTURE 2 BLOOD CULTURE 2 Lab Routine 07/07/2024 1:32 PM EST [facility] Patient Education Esophageal Dilation [facility] Work Phone: Payers Date Payer Category Payer Self-pay [id number] 2022 Private Health Insurance [facility] [id number] 2022 Unknown [employer] [id number] 2022-Present [phone] [address] [address] [place] [address] [id number] [id number] 2013 Medicare [id number]. 1.13.693. [id number] 1959 Medicare [id number] 1959 Unknown [id number] 1959 Unknown [id number] 1957 Unknown [id number] 2.16.840.1.214361.3.579. 2.647 1957 Unknown [id number] 2.16.840.1.915080.3.579. 2.593 1957 Unknown [id number] 2.16.840.1.931746.3.579. 2.593 1957 Unknown [id number] 2.16.840.1.558068.3.579. 2.593 1957 Unknown [id number] 2.16.840.1.333876.3.579. 2.593 1957 Unknown [id number] 2.16.840.1.787400.3.579. 2.593 1957 Unknown [id number] 2.16.840.1.325790.3.579. 2.593 1957 Unknown [id number] 2.16.840.1.310329.3.579. 2.593 1957 Unknown [id number] 2.16.840.1.769371.3.579. 2.593 1957 Unknown [id number] 2.16.840.1.467106.3.579. 2.593 1957 Unknown [id number] 2.16.840.1.540903.3.579. 2.593 1957 Unknown [id number] 2.16.840.1.409337.3.579. 2.593 1957 Unknown [id number] 2.16.840.1.106029.3.579. 2.593 1957 Unknown [id number] 2.16.840.1.480291.3.579. 2.593 1957 Unknown [id number] 2.16.840.1.965417.3.579. 2.727 1957 Unknown [id number] 2.16.840.1.233262.3.579. 2.727 1957 Unknown [id number] 2..840.1.511516.3.579. 2.1259 1957 Unknown [id number] 2..840.1.660112.3.579. 2.1259 1957 Unknown [id number] 2.840.1.274668.3.579. 2.1259 1957 Unknown [id number] 2..840.1.123628.3.579. 2.1259 1957 Unknown [id number] 2..840.1.286805.3.579. 2.1259 1957 Unknown [id number] 2.840.1.781353.3.579. 2.1259 Medicare Medicare [id number] Unknown [id number] 2.840.1.471511.3.579. 2.531 Unknown [id number] 2.840.1.303476.3.579. 2.531 Social History Date Type Detail Facility Start: 06-14-2023 End: 06-26-2023 Tobacco smoking status TXIS Ex-smoker (finding) [facility] Start: 1955 Sex Assigned At Female [facility] Start: 03-06-1982 End: 03-06-2022 History of tobacco use Current smoker [facility] Start: 03-06-1982 End: 03-06-2022 History of tobacco use Cigarette Smoker [facility] Start: 06-14-2023 End: 11-20-2024 Cigarettes smoked current (pack per day) - Reported 2 [facility] Start: 06-14-2023 Tobacco use and exposure Smokeless tobacco non-user [facility] Start: 06-14-2023 End: 11-20-2024 Alcohol intake Ex-drinker (finding) [facility] Start: 06-14-2023 End: 11-20-2024 Tobacco use panel [facility] Start: 06-14-2023 Alcohol Comment caffine-2 cups daily [facility] Start: 1955 Sex Assigned At Not on file N [facility] Start: 07-09-2024 End: 07-11-2024 Sex Female (finding) [facility] Goals Date Patient Goal Desired Activity /State Clinical Notes 03-09-2022 to 11-20-2024 Erasto Burroughs MD - 11/20/2024 12:26 PM EDKenneth Burroughs MD - 11/20/2024 12:26 PM Enedelia Burroughs MD - 11/20/2024 12:25 PM Enedelia Burroughs MD - 11/20/2024 10:45 AM EDT Note Date & Type Note Facility 11-20-2024 History of Present illness Narrative Associated Problem(s): Lumbar radiculopathy Continued pain and weakness in leg. Severe radicular symptoms. Check EMG. Not scheduled with neurology until January and try to refer to different location. Stop lyrica and start neurontin. Use percocet PRN. Associated Problem(s): Degeneration of intervertebral disc of lumbar region with discogenic back pain and lower extremity pain Continued pain and weakness in leg. Severe radicular symptoms. Check EMG. Not scheduled with neurology until January and try to refer to different location. Stop lyrica and start neurontin. Use percocet PRN. Associated Problem(s): Bullous emphysema (CMS/HCC) Recent exacerbation but improved. Continue inhalers and follow with pulmonology. Images from the original note were not [...] lyrica and start neurontin. Use percocet PRN. Relevant Orders Ambulatory referral to Neurology Degeneration of intervertebral disc of lumbar region with discogenic back pain and lower extremity pain Continued pain and weakness in leg. Severe radicular symptoms. Check EMG. Not scheduled with neurology until January and try to refer to different location. Stop lyrica and start neurontin. Use percocet PRN. Relevant Medications gabapentin (Neurontin) 300 MG capsule [...] referral to Neurology documented in this encounter [facility] 10-09-2024 History of Present illness Narrative Associated Problem(s): Type 2 diabetes mellitus with hyperglycemia, without long-term current use of insulin (CMS/HCC) Not checking BS and due for A1C. Stick to ADA diet and limit carbs. Associated Problem(s): Essential hypertension, benign (CMS/HCC) BP controlled and monitor PRN. Associated Problem(s): Degeneration of intervertebral disc of lumbar region with discogenic back pain and lower extremity pain Severe pain and weakness in leg. Start percocet PRN. Follow up with surgeon. Images from the original note were not included. Subjective Patient ID: Lise Canales is a 69 y.o. female who presents for Leg Pain (Left leg pain down into foot). Follow up DM, HTN, COPD, and pain. Patient not doing well today. Recently with severe back pain and radicular symptoms. Pain in low back and across top hips. Pain into left gluteal region and down left leg. Severe weakness in leg. Problems walking or standing. 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 To ER x 2. Last visit CT showed bulging discs and scheduled with surgeon tomorrow. Not checking BS. Decreased appetite and not eating well. Weight down to 94 pounds. Checking BP PRN and typically controlled. BP normal today. Taking medication daily and tolerating without side effects. COPD stable. Mild SOB with exertion. Occasional cough but no sputum. Using inhalers daily. Review of Systems Respiratory: Negative for cough, [...] Assessment/Plan Problem List Items Addressed This Visit Essential hypertension, benign (CMS/HCC) BP controlled and monitor PRN. Relevant Orders Basic metabolic panel Dyslipidemia ([facility]) Relevant Orders Lipid panel Type 2 diabetes mellitus with hyperglycemia, without long-term current use of insulin ([facility]) Not checking BS and due for A1C. Stick to ADA diet and limit carbs. Relevant Orders Microalbumin / creatinine, urine ratio Hemoglobin A1c Degeneration of intervertebral disc of lumbar region with discogenic back pain and lower extremity pain - Primary Severe pain and weakness in leg. Start percocet PRN. Follow up with surgeon. Encounter for long-term (current) use of medications Relevant Orders CBC and differential Hepatic function panel documented in this encounter [facility] 08-28-2024 History of Present illness Narrative Associated Problem(s): COPD (chronic obstructive pulmonary disease) ([facility]) Increased SOB and use albuterol PRN. Associated [...] This Visit COPD (chronic obstructive pulmonary disease) (CMS/HCC) Increased SOB and use albuterol PRN. Relevant [...] chest 2 views documented in this encounter [facility] 07-17-2024 History of Present illness Narrative Associated Problem(s): Pneumonia due to infectious organism Recent infection and improved. Monitor. Associated Problem(s): Pleurisy Severe pain and complete steroids. Use heat to chest wall. Use ultram PRN. Associated Problem(s): COPD with acute exacerbation ([facility]) Recently treated and complete steroids. Use albuterol [...] 50 MG tablet documented in this encounter [facility] 06-26-2024 History of Present illness Narrative [...] 69 y.o. female who presents for Follow-up ([facility] hospital f/up/sick). Hospital follow up from 06/06-06/08 [...] ER for evaluation. documented in this encounter [facility] 05-12-2024 Note Patient Education Urology Urethral [...] including vitamins, herbs, eye drops, creams, and ocln-oug-bskhexq medicines. ??? Any problems you or family [...] your provider tells you to. ??? Taking tbwz-bul-anibcap medicines, vitamins, herbs, and supplements. General instructions [...] these instructions at home: Medicines ??? Take iubi-mvn-psctluu and prescription medicines only as told by [...] to prevent or treat constipation: ? Take sqfr-cli-enupmxb or prescription medicines. ? Eat foods that [...] soft tube (catheter) (more content not included)... [facility] 01-07-2024 Note [place] [facility] Subjective Lise Easton Covert is a 68 y.o. year old female patient being seen for 6 mo follow up CAD and hypertension. She was admitted to [facility] 2 weeks ago for severe sepsis [...] Prior additional history: She was admitted to [facility] in 10/2017 with sudden onset [...] On 06/04/2023 she was admitted to [facility] transferred from the [facility] due to pneumonia. In that setting she was found to have minimally elevated troponin. Her echocardiogram and EKG were nonrevealing. She was discharged on medical therapy. In December 2023 she was admitted to the [facility] with pneumonia and sepsis. In [...] Breath (more content not included)... [facility] 06-27-2023 Note [place] Cardiology - [facility] Subjective Lise Canales is a 68 y.o. year old female patient being seen for follow up [facility] for NSTEMI. Denies chest pain, LE [...] Prior additional history: She was admitted to [facility] in 10/2017 with sudden onset [...] On 06/04/2023 she was admitted to [facility] transferred from the [facility] due to pneumonia. In that [...] All (more content not included)... [facility] 06-26-2023 Procedure note [facility] 06-06-2023 Note Hospital Medicine Discharge Summary Final Discharge Diagnosis: Community acquired pneumonia of right lower lobe of lung Admission Diagnosis: NSTEMI (non-ST elevated myocardial infarction) ([facility]) [I21.4] Hospital course: 68 years old female lady with a medical history of hypertension, hyperlipidemia, gastroesophageal reflux disease, carotid disease, fibromyalgia, arthritis, polymyalgia rheumatica, COPD, temporal arteritis, and psoriasis. Came into the [facility] ER as a transfer from [facility] for concern of chest pain [...] 06/27/2023 3:45 PM Jer Neff MD [facility] Your medication list START taking these [...] HYDROcodone-acetaminophen 5-325 mg tablet Commonly known as: [place] melatonin 5 mg tablet metoprolol tartrate 25 [...] Your Medications These medications were sent to [id number] [address] cefdinir 300 mg capsule doxycycline 100 mg capsule Lise is allergic to azithromycin and latex. Disposition: Home-Health Care [facility] Discharge Condition: Stable Code Status: Prior Diagnostic Results Hematology: Results from last 7 days Lab Units 06/06/23 0547 06/05/2330206/05/23301 WBC AUTO 10*3/uL 10.31 -- 17.28* HEMOGLOBIN g/dL 9.6* -- 11.6* HEMATOCRIT % 28.7* -- 35.8* MCV fL 84.4 -- 87.3 PLATELETS AUTO 10*3/uL 522* -- 517* INR -- 1.25* -- Chemistry: Results from last 7 days Lab Units 06/06/23 0506/05/23301 SODIUM mmol/L 130* 133* POTASSIUM mmol/L 3.9 [...] C (more content not included)... 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 Yes Does the patient have a shelter case manager assigned to them through their [...] of Residence/Post Acute Needs Private residence;[facility] Is PT/OT appropriate? No Is PT/OT ordered? No Is SW consult appropriate? Yes Is SW consult ordered? Yes Do you understand the benefits of MyChart? Yes Were you able to send link and activate MyChart? MyChart already active [facility] 06-05-2023 Note . Hospital Medicine History and Physical 06/05/2023 1:22 AM THE HOSPITALIST TEAM PREFERS TO USE [employer] FOR COMMUNICATION 7AM-7PM. IF I DO NOT RESPOND WITHIN 15 MINUTES, PLEASE PAGE ME/CALL THROUGH THE SUPERVISOR SANDBLASTER. FROM 7PM-7AM, PLEASE PAGE [phone](COVR) Chief Complaint No chief complaint on file. History of Present Illness Lise Canales is an 68 y.o. female who came from home with NSTEMi. This is a 68 years old female lady with a medical history of hypertension, hyperlipidemia, gastroesophageal reflux disease, carotid disease, fibromyalgia, arthritis, polymyalgia rheumatica, COPD, temporal arteritis, and psoriasis. Came into the [facility] ER as a transfer from [facility] for concern of chest pain [...] Date Noted NSTEMI (non-ST elevated myocardial infarction) ([facility]) 06/05/2023 Acute on chronic respiratory failure with hypoxia ([facility]) 04/01/2022 Anemia, unspecified 04/01/2022 Recurrent spontaneous pneumothorax 03/30/2022 Giant cell arteritis with polymyalgia rheumatica ([facility]) 10/11/2021 Pneumothorax on left 08/02/2016 Coronary atherosclerosis 06/15/2014 Dyslipidemia 06/15/2014 Status post percutaneous transluminal coronary angioplasty 06/15/2014 Angina pectoris ([facility]) 05/04/2014 Electrocardiogram abnormal 05/04/2014 Abdominal pain 04/24/2014 Altered mental status 04/24/2014 Benign essential hypertension 04/24/2014 Congestive heart failure ([facility]) 04/24/2014 Dyspnea 04/24/2014 Gastroesophageal reflux disease 04/24/2014 History of psychiatric disorder 04/24/2014 Hyperlipidemia 04/24/2014 Headache 04/24/2014 Raynaud's disease 04/24/2014 Other and unspecified noninfectious gastroenteritis and colitis(558.9) 05/15/2007 Candidiasis of mouth 04/17/2007 COPD (chronic obstructive pulmonary disease) ([facility]) 04/17/2007 Diarrhea 04/17/2007 Loss of weight 04/17/2007 Other psoriasis 04/17/2007 Psoriatic arthropathy (CMS/HCC) 04/17/2007 Other pneumothorax 03/30/2022 Assessment and Plan [...] -Scheduled (more content not included)... [facility] 03-15-2022 Note MR#: [id number] I [facility] Pt. Name: Lise Canales Admitted: 03/08/2022 [...] 66-year-old female, who presented to the [facility] with shortness of breath and [...] patient was subsequently transferred to for [facility] for further workup, was admitted to [...] P/Augustin Penn MD Date Trans: 03/15/2022 04:48 P/dilciao [id number] cc: Erasto Burroughs M.D. [address] [place] [address] [facility] 03-13-2022 Note MR#: [id number] I [facility] Pt. Name: Lise Canales Admitted: 03/08/2022 [...] Pineda MD Date Trans: 03/13/2022 10:30 A/gabriela [id number] cc: Erasto Burroughs M.D. [address] [place] [address] [facility] 03-09-2022 Note MR#: [id number] I [facility] Pt. Name: Lise Canales Admitted: 03/05/2020 [...] Helicobacter pylori infection, who presented to [facility] Emergency Department complaining of sudden onset [...] appointment with the primary care provider through [facility] for close followup for her anxiety [...] 2 to 4 weeks. Follow up at [facility] on 03/16/2022 at 9:50 [...] Iman Willis MD 03/11/2022 09:37 A ____ mIan Willis MD I have reviewed this discharge summary and confirmed the resident's documentation. Please note that there may be additional documentation from me. Date Dict: 03/08/2022/03:04 P/Paulette Mccord CNP Date Trans: 03/09/2022 11:21 A/gabriela [id number] cc: Marti Poole M.D. [address] [facility] [address] Erasto Burroughs M.D. [address] [place] [address] [facility] Evaluation note No assessment inform ation available [facility] Work Phone: Evaluation note Diagnosis [...] Chronic obstructive pulmonary disease, unspecified COPD type ([facility]) Dehydration- Primary Fever, unspecified fever cause COPD with acute exacerbation ([facility]) Pneumonia due to infectious organism, unspecified laterality, unspecified part of lung- Primary COPD with acute exacerbation ([facility]) Pleurisy Pleurisy without mention of effusion or current tuberculosis Acute bronchitis due to other specified organisms- Primary Chronic obstructive pulmonary disease, unspecified COPD type ([facility]) documented in this encounter [facility] HealthcareEvaluation note* Diagnosis Pyelonephritis- Primary Unspecified pyelonephritis Type 2 diabetes mellitus with hyperglycemia, without long-term current use of insulin ([facility]) Essential hypertension, benign ([facility]) Essential hypertension, benign Breast cancer screening by mammogram Chronic obstructive pulmonary disease, unspecified COPD type ([facility]) Degeneration of intervertebral disc of lumbar region with discogenic back pain and lower extremity pain- Primary Type 2 diabetes mellitus with hyperglycemia, without long-term current use of insulin ([facility]) Essential hypertension, benign ([facility]) Essential hypertension, benign Dyslipidemia ([facility]) Other and unspecified hyperlipidemia Encounter for long-term (current) use of medications Encounter for long-term (current) use of other medications documented in this encounter [facility] HealthcareEvaluation note* Diagnosis Pyelonephritis- Primary Unspecified pyelonephritis Type 2 diabetes mellitus with hyperglycemia, without long-term current use of insulin ([facility]) Essential hypertension, benign ([facility]) Essential hypertension, benign Breast cancer screening by mammogram Chronic obstructive pulmonary disease, unspecified COPD type ([facility]) Degeneration of intervertebral disc of lumbar region with discogenic back pain and lower extremity pain- Primary Type 2 diabetes mellitus with hyperglycemia, without long-term current use of insulin ([facility]) Essential hypertension, benign ([facility]) Essential hypertension, benign Dyslipidemia ([facility]) Other and unspecified hyperlipidemia Encounter for long-term (current) use of medications Encounter for long-term (current) use of other medications Degeneration of intervertebral disc of lumbar region with discogenic back pain and lower extremity pain documented in this encounter [facility] HealthcareEvaluation note* Diagnosis Pyelonephritis- Primary Unspecified pyelonephritis Type 2 diabetes mellitus with hyperglycemia, without long-term current use of insulin ([facility]) Essential hypertension, benign ([facility]) Essential hypertension, benign Breast cancer screening by mammogram Chronic obstructive pulmonary disease, unspecified COPD type (CMS/HCC) Degeneration of intervertebral disc of lumbar region with discogenic back pain and lower extremity pain- Primary Type 2 diabetes mellitus with hyperglycemia, without long-term current use of insulin (CMS/HCC) Essential hypertension, benign (CMS/HCC) Essential hypertension, benign Dyslipidemia (CMS/HCC) Other and unspecified hyperlipidemia Encounter for long-term (current) use of medications Encounter for long-term (current) use of other medications DDD (degenerative disc disease), lumbar Degeneration of lumbar or lumbosacral intervertebral disc documented in this encounter [facility] HealthcareEvaluation note* Diagnosis Pyelonephritis- Primary Unspecified pyelonephritis Type 2 diabetes mellitus with hyperglycemia, without long-term current use of insulin (CMS/HCC) Essential hypertension, benign (CMS/HCC) Essential hypertension, benign Breast cancer screening by mammogram Chronic obstructive pulmonary disease, unspecified COPD type (CMS/HCC) Degeneration of intervertebral disc of lumbar region with discogenic back pain and lower extremity pain- Primary Type 2 diabetes mellitus with hyperglycemia, without long-term current use of insulin (CMS/HCC) Essential hypertension, benign (CMS/HCC) Essential hypertension, benign Dyslipidemia (CMS/HCC) Other and unspecified hyperlipidemia Encounter for long-term (current) use of medications Encounter for long-term (current) use of other medications Degeneration of intervertebral disc of lumbar region with discogenic back pain and lower extremity pain documented in this encounter [facility] HealthcareEvaluation note* Diagnosis Pyelonephritis- Primary Unspecified pyelonephritis Type 2 diabetes mellitus with hyperglycemia, without long-term current use of insulin (CMS/HCC) Essential hypertension, benign (CMS/HCC) Essential hypertension, benign Breast cancer screening by mammogram Chronic obstructive pulmonary disease, unspecified COPD type (CMS/HCC) Degeneration of intervertebral disc of lumbar region with discogenic back pain and lower extremity pain- Primary Type 2 diabetes mellitus with hyperglycemia, without long-term current use of insulin (CMS/HCC) Essential hypertension, benign (CMS/HCC) Essential hypertension, benign Dyslipidemia (CMS/HCC) Other and unspecified hyperlipidemia Encounter for long-term (current) use of medications Encounter for long-term (current) use of other medications Bullous emphysema (CMS/HCC)- Primary Degeneration of intervertebral disc of lumbar region with discogenic back pain and lower extremity pain Lumbar radiculopathy Thoracic or lumbosacral neuritis or radiculitis, unspecified Numbness Disturbance of skin sensation Leg pain, left Pain in soft tissues of limb Leg pain, right Pain in soft tissues of limb Bilateral leg weakness Muscle weakness (generalized) documented in this encounter [facility] HealthcareHistory and physical note Author Remy Givens [facility] June 26, 2023 2:44pm Note Date/Time June 26, 2023 2:44pm [facility] [address] [place] [address] Gastroenterology H&P Signed Patient: Lise Canales MR#: [id number] : 1955 Acct:[id number] Age/Sex: 68 / F Adm Date: 3 Loc: Room: Type: [facility] Attending Dr: Remy Givens MD [...] <Electronically signed by Remy Givens MD> 06/26/23 3514 [facility] Work Phone: spital Discharge instructions Additional Instructions DISCHARGE INSTRUCTIONS FOR [...] problems. -Follow up with PCP. -Office number [phone].[facility] Work Phone: Summary Purpose Family History Relationship Condition Age at Onset Recorded Date/T enrique father Cerebrovascular accident (CVA) Unknown Relationship Condition Age at Onset Recorded Date/T enrique father Cerebrovascular accident (CVA) Unknown father Unknown mother Unknown Advance Directives Advance Directive Response Recorded [...] and content) DATE CREATED AUTHOR 04/11/2022 [facility] DATE CREATED AUTHOR AUTHOR'S ORGANIZ ATION 11/04/2022 [facility] DATE CREATED AUTHOR AUTHOR'S ORGANIZ ATION 02/14/2024 [facility] DATE CREATED AUTHOR AUTHOR'S ORGANIZ ATION 07/24/2024 [facility] DATE CREATED AUTHOR AUTHOR'S ORGANIZ ATION 11/12/2024 [facility] DATE CREATED AUTHOR AUTHOR'S ORGANIZ ATION 11/21/2024 [facility] Care Teams (unrecognized sec tion and content) Team Status: Active Member Role Status Dates Erasto Burroughs MD Primary Care Provider Active Team Status: Inactive Member Role Status Dates Erasto Burroughs MD Primary Care Provider Active Remy Givens MD Attending Provider Active [employer] Relationship Specialty Start Date End Date Erasto Burroughs MD PCP - General Family Medicine 07/09/22 [employer] Relationship Specialty Start Date End Date Erasto Burroughs MD [address] [place] [address] PCP - General Family Medicine 02/21/24 [employer] Relationship Specialty Start Date End Date Erasto Burroughs MD [address] [place] [phone] PCP - General Family Medicine 02/21/24 [employer] Relationship Specialty Start Date End Date Erasto Burroughs MD [address] [place] [phone] PCP - General Family Medicine 02/21/24 [employer] Relationship Specialty Start Date End Date Erasto Burroughs MD [address] [place] [phone] PCP - General Family Medicine 02/21/24 [employer] Relationship Specialty Start Date End Date Erasto Burroughs MD [address] [place] [phone] PCP - General Family Medicine 02/21/24 [employer] Relationship Specialty Start Date End Date Erasto Burroughs MD [address] [place] [phone] PCP - General Family Medicine 02/21/24 [employer] Relationship Specialty Start Date End Date Erasto Burroughs MD [address] [place] [phone] PCP - General Family Medicine 02/21/24 [employer] Relationship Specialty Start Date End Date Erasto Burroughs MD [address] [place] [phone] PCP - General Family Medicine 02/21/24 Team [...] July 09, 2024 End: July 09, 2024 [employer] Relationship Specialty Start Date End Date Erasto Burroughs MD [address] [place] [phone] PCP - General Family Medicine 02/21/24 [employer] Relationship Specialty Start Date End Date Erasto Burroughs MD [address] [place] [phone] PCP - General Family Medicine 02/21/24 [employer] Relationship Specialty Start Date End Date Erasto Burroughs MD [address] [place] [phone] PCP - General Family Medicine 02/21/24 [employer] Relationship Specialty Start Date End Date Erasto Burrouhgs MD [address] [place] [phone] PCP - General Family Medicine 02/21/24 [employer] Relationship Specialty Start Date End Date Erasto Burroughs MD [address] [place] [phone] PCP - General Family Medicine 02/21/24 [employer] Relationship Specialty Start Date End Date Erasto Burroughs MD [address] [place] [phone] PCP - General Family Medicine 02/21/24 [employer] Relationship Specialty Start Date End Date Erasto Burroughs MD [address] [place] [phone] PCP - [facility] Medicine 02/21/24 [employer] Relationship Specialty Start Date End Date Erasto Burroughs MD [address] [place] [phone] PCP - [facility] 02/21/24 [employer] Relationship Specialty Start Date End Date Erasto Burroughs MD [address] [place] [phone] PCP - [facility] Medicine 02/21/24 [employer] Relationship Specialty Start Date End Date Erasto Burroughs MD [address] [place] [phone] PCP - General Family Medicine 02/21/24 Reason for Visit (unrecogniz ed section and content) Reason Comments Med Refill Reason Comments Follow-up [facility] hospital f/upsic k Reason Comments Hospital Follow-up Reason Comments Follow-up Weak, tired vomiting , congestion Reason Comments Leg Pain Left leg pain down i nto foot Reason Onset Date Comments Med Refill 10/21/2024 Reason Onset Date Comments Med Refill 11/06/2024 Reason Comments Follow-up Er f/[facility] Goals (unrecognized section and content) Goals may [...] BE BASED ON THE PRIMARY CLINICAL RECORDS. [facility] [employer] [facility]. provides no warranty or guarantee of the accuracy or completeness of information in this document.
[2024-12-10 18:27] LABS: Basophils Percent Auto 0.2 % (0.2-2.0); Eosinophils Percent Auto 0.1 % (0.9-7.0); Hematocrit 35.3 % (36.0-48.0); Hemoglobin 11.7 g/dL (12.0-16.0); Immature Granulocytes Abs Auto 0.06 10^3/uL (0.00-0.03); Immature Granulocytes Pct Auto 0.3 % (0.0-0.5); Lymphocytes Absolute Auto 0.8 10^3/uL (1.2-3.8); Lymphocytes Percent Auto 4.1 % (20.5-60.0); Mean Corpuscular HGB Conc 33.1 g/dL (29.9-35.2); Mean Corpuscular Hemoglobin 28.7 pg (26.7-34.0); Mean Corpuscular Volume 86.7 fL (81.0-99.0); Mean Platelet Volume 8.8 fL (9.5-13.5); Monocytes Absolute Auto 1.5 10^3/uL (0.3-0.8); Neutrophils Absolute Auto 16.3 10^3/uL (1.4-6.5); Neutrophils Percent Auto 87.3 % (43.0-75.0); Platelet Count 349 10^3/uL (150-450); Red Blood Count 4.07 10^6/uL (4.20-5.40); Red Cell Distribution Width 14.1 % (11.0-15.0); White Blood Count 18.7 10^3/uL (4.0-11.0)
[2024-12-10 18:46] LABS: Lactate/Lactic Acid 0.9 mmol/L (0.4-2.0)
[2024-12-10 18:50] LABS: Alanine Aminotransferase 8 U/L (14-59); Albumin Globulin Ratio 0.7; Albumin Level 2.4 g/dL (3.4-5.0); Alkaline Phosphatase 76 U/L (46-116); Aspartate Amino Transferase 14 U/L (15-37); Bilirubin Direct 0.1 mg/dL (0.0-0.2); Bilirubin Total 0.4 mg/dL (0.2-1.0); Globulin 3.4 g/dL; Magnesium 1.5 mg/dL (1.8-2.4); Total Protein 5.8 g/dL (6.4-8.2)
[2024-12-10 18:56] LABS: Troponin I High Sensitivity 11.8 pg/mL (4.0-51.3)
--- NOTE | 2024-12-10 19:51 | P.HP_ITS ---
HPI H&P: HPI History of Present Illness Chief complaint: RLL PNEUMONIA HYPOKEMIA UTI Narrative: Patient presented the emergency room with increasing cough, found to have fever, tachycardia, respiratory distress secondary to right lower lobe pneumonia When I saw patient up on the medical surgical floor, resting comfortably bed with some mild conversational dyspnea Opioid HPI Opioid Management Most Recent Pain and Opioid Data: Last Pain Scale 10 Today, 15:03 Last Pain Intensity 0 03/06/23, 15:53 Last Pain Assessment Today, 19:00 Last ORT Total Score 3 Today, 18:03 Last ORT Risk Category Low Risk Today, 18:03 PFSH [facility] Medical History (Updated 12/10/24 @ 16:09 by Matt Bond MD) Pneumonia ?J18.9 - Pneumonia, unspecified organism (ICD-10) Sepsis ?A41.9 - Sepsis, unspecified organism (ICD-10) COPD exacerbation ?J44.1 - Chronic obstructive pulmonary disease with (acute) exacerbation (ICD-10) Diarrhea ?R19.7 - Diarrhea, unspecified (ICD-10) Nausea ?R11.0 - Nausea (ICD-10) Right lower lobe pneumonia ?J18.9 - Pneumonia, unspecified organism (ICD-10) Acute pyelonephritis ?N10 - Acute pyelonephritis (ICD-10) Sepsis ?A41.9 - Sepsis, unspecified organism (ICD-10) Immunosuppressed status ?D84.9 - Immunodeficiency, unspecified (ICD-10) Chronic steroid use Temporal arteritis ?M31.6 - Other giant cell arteritis (ICD-10) CKD stage 3b, GFR 30-44 ml/min ?N18.32 - Chronic kidney disease, stage 3b (ICD-10) Chronic respiratory failure with hypoxia ?J96.11 - Chronic respiratory failure with hypoxia (ICD-10) History of tobacco abuse ?Z87.891 - Personal history of nicotine dependence (ICD-10) CAD (coronary artery disease) ?I25.10 - Atherosclerotic heart disease of [place] coronary artery without angina pectoris (ICD-10) Essential hypertension ?I10 - Essential (primary) hypertension (ICD-10) Type 2 diabetes mellitus with hyperglycemia ?E11.65 - Type 2 diabetes mellitus with hyperglycemia (ICD-10) Polymyalgia rheumatica ?M35.3 - Polymyalgia rheumatica (ICD-10) Non-ST elevated myocardial infarction (non-STEMI) ?I21.4 - Non-ST elevation (NSTEMI) myocardial infarction (ICD-10) Hyperlipidemia ?E78.5 - Hyperlipidemia, unspecified (ICD-10) Hyperglycemia, drug-induced ?R73.9 - Hyperglycemia, unspecified (ICD-10) ?T50.905A - Adverse effect of unspecified drugs, medicaments and biological substances, initial encounter (ICD-10) COPD (chronic obstructive pulmonary disease) ?J44.9 - Chronic obstructive pulmonary disease, unspecified (ICD-10) Depression ?F32.A - Depression, unspecified (ICD-10) Acid reflux ?K21.9 - Gastro-esophageal reflux disease without esophagitis (ICD-10) Nerve pain ?M79.2 - Neuralgia and neuritis, unspecified (ICD-10) Back pain ?M54.9 - Dorsalgia, unspecified (ICD-10) Thoracotomy scar of right chest ?L90.5 - Scar conditions and fibrosis of skin (ICD-10) History of oxygen administration ?Z99.81 - Dependence on supplemental oxygen (ICD-10) UTI (urinary tract infection), bacterial ?N39.0 - Urinary tract infection, site not specified (ICD-10) ?A49.9 - Bacterial infection, unspecified (ICD-10) Urethral stenosis Surgical History Status post bilateral cataract extraction ?Z98.41 - Cataract extraction status, right eye (ICD-10) ?Z98.42 - Cataract extraction status, left eye (ICD-10) 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 [part of] (ICD-10) Stented coronary artery ?Z95.5 - Presence of coronary angioplasty implant and graft (ICD-10) Family History Mother Family history of COPD (chronic obstructive pulmonary disease) Brother Family history of COPD (chronic obstructive pulmonary disease) Father Family history of COPD (chronic obstructive pulmonary disease) Family history of stroke Social History (Updated 12/10/24 @ 18:46 by Lisa Hunt) Within the past year, how often did you have a drink containing alcohol: never Within the past year, how many standard drinks containing alcohol did you have on a typical day: 1 or 2 Within the past year, how often did you have six or more drinks on one occasion: never Total score: 0 Score interpretation: A score less than 3 is consistent with normal alcohol consumption. Smoking status: Former smoker Non-prescribed substance use: cannabis (any form) Non-prescribed substance use details: uses marijuana to help sleep Previous occupational history: disabled Highest level of school completed/degree received: Associate degree: academic program Are you now , , , , never or living with a partner: Little interest or pleasure in doing things: not at all Feeling down, depressed, or hopeless: not at all Feel stressed/tense/nervous/anxious/difficulty sleeping: only a little Do you think of yourself as: straight/heterosexual Gender Identity: female Meds Home Medications and Allergies Home Medications ?Medication ?Instructions ?Recorded ?Confirmed ?Type pregabalin 100 mg capsule (Lyrica) 100 mg PO TID 03/0612/10/24 History albuterol sulfate 90 mcg/actuation 2 puff inhalation Q 4H PRN 12/18/23 12/10/24 History aerosol inhaler shortness of breath or wheez ing tiotropium 2.5 mcg-olodaterol 2.5 2 puff inhalation [place] 11/10/24 12/10/24 History mcg/actuation mist for inhalation (Stiolto Respimat) atorvastatin 40 mg tablet 40 mg PO .QHS 12/10/2412/10 History gabapentin 300 mg capsule 300 mg PO Q8H 12/10/2412/10 History guaifenesin 600 mg tablet, 1,200 mg PO Q12H 12/10/24 0 12/10/24 History extended release 12 hr Allergies Allergy/AdvReac Type Severity Reaction Status Date / Time azithromycin (From Zithromax Allergy Severe Unknown Verified 12/10/24 14:33 Z-Leonardo) Latex, Natural Rubber Allergy Severe Unknown Verified 12/10/24 14:33 Exam Constitutional Vital Signs, click to edit/add: Last Vital Signs Temp 98.8 F 12/10/24 19:40 Pulse 101 H 12/10/24 19:40 Resp 20 12/10/24 19:40 BP 116/54 12/10/24 19:40 Pulse Ox 93 L 12/10/24 19:40 O2 Del Method Room Air 12/10/24 19:40 O2 Flow Rate 2 12/10/24 18:03 Documenting provider has reviewed patient's vital signs: yes Common normals: apparent distress (Mild respiratory distress) Respiratory Common normals: abnormal respiratory effort (Mild respiratory distress with conversational dyspnea) Effort & inspection: able to speak in complete sentences Auscultation: rhonchi and egophony (Right lower lobe) Cardio Common normals: regular rate and regular rhythm GI Common normals: Normal to inspection, nondistended, normoactive bowel sounds present Back & Pelvis Common normals: CVA tenderness ((Lumbosacral muscle tenderness) Results Labs Labs: Short CBC 12/10/24 12/10/24 Range/Units 15:27 18:21 WBC 16.8 H 18.7 H (4.0-11.0) 10^3/uL Hgb 13.1 11.7 L (12.0-16.0) g/dL Hct 39.3 35.3 L (36.0-48.0) % Plt Count 417 349 (150-450) 10^3/uL BMP 12/10/24 15:27 Sodium 135 L Potassium 3.7 Chloride 99 Carbon Dioxide 25.7 BUN 15.0 Creatinine 0.96 Glucose 112 H Calcium 10.6 H Liver Function 12/10/24 Range/Units 18:21 Total Bilirubin 0.4 (0.2-1.0) mg/dL Direct Bilirubin 0.1 (0.0-0.2) mg/dL AST 14 L (15-37) U/L ALT 8 L (14-59) U/L Alkaline Phosphatase 76 (46-116) U/L Albumin 2.4 L (3.4-5.0) g/dL Urine 12/10/24 Range/Units 15:00 Urine Color Lt. yellow (YELLOW) Urine Clarity Clear (CLEAR) Urine pH 6.0 (5.0-9.0) Ur Specific [place] 1.015 (1.005-1.025) Urine Protein Negative (NEG/TRACE) mg/dL Urine Glucose (UA) Negative (NEGATIVE) mg/dL Assessment and Plan Assessment and Plan (1) Hypoxemia: (2) Urinary tract infection: (3) Right lower lobe pneumonia: (4) COPD exacerbation: (5) Bulging lumbar disc: (6) Left lumbar radiculopathy: Plan Admission findings: Fever, tachycardia, respiratory distress, elevated blood pressure, acute hypoxia with O2 sat of less than 89%, leukocytosis with left shift consistent with a bacterial process secondary to right lower lobe pneumonia causing an acute exacerbation of COPD leading to sepsis Sepsis due to right lower lobe pneumonia causing acute exacerbation of COPD-IV antibiotics, aerosol treatments, blood culture, sputum culture Intractable lumbar radiculopathy-continue with home medications Coronary artery disease secondary to hypercholesterolemia by history-stents been placed, no chest pain Admission status: Patient with acute hypoxia and evidence for sepsis secondary to right lower lobe pneumonia, medically necessary treatment will span 2 midnights. Inpatient status
[2024-12-10] MEDS: METHYLPREDNISOLONE SOD SUCC PF 125 MG/2 ML VIAL IVP (19:54)
[2024-12-10] MEDS: CEFTRIAXONE 1,000 MG in 0.9 % SODIUM CHLORIDE 50 ML 100 MG IV (19:54)
[2024-12-10] MEDS: ACETAMINOPHEN 500 MG TABLET 1000 MG PO (19:54)
[2024-12-10] MEDS: GUAIFENESIN 600 MG TAB.ER.12H 1200 MG PO (21:03)
[2024-12-10] MEDS: GABAPENTIN 300 MG CAPSULE PO (21:04)
[2024-12-10 21:07] LABS: Influenza Virus A Antigen Negative; Influenza Virus B Antigen Negative; Internal Control Within Normal Limits; Respiratory Syncytial Virus Not Detected (NOT DETECTE)
[2024-12-10 21:07] LABS: Troponin I High Sensitivity 11.2 pg/mL (4.0-51.3)
[2024-12-10] MEDS: PREGABALIN 100 MG CAPSULE PO (21:36)
[2024-12-10 21:39] LABS: Glucometer 119 mg/dL (74-106)
[2024-12-10] MEDS: IPRATROPIUM/ALBUTEROL SULFATE 3 ML AMPUL.NEB IH (22:32)
[2024-12-11] VITALS (24 sets, daily range): BP systolic 100–132; BP diastolic 52–77; PULSE 86–120; TEMP 36.3–36.8; O2SAT 85–96
[2024-12-11] MEDS: METHYLPREDNISOLONE SOD SUCC PF 125 MG/2 ML VIAL IVP ×2 (01:52→08:38)
[2024-12-11] MEDS: IPRATROPIUM/ALBUTEROL SULFATE 3 ML AMPUL.NEB IH ×4 (04:29→20:44)
[2024-12-11 05:06] LABS: Anion Gap 16.6; BUN Creatinine Ratio 15.3; Calcium 10.6 mg/dL (8.5-10.1); Carbon Dioxide 24.9 mmol/L (21.0-32.0); Chloride 100 mmol/L (98-107); Estimated GFR (African America 55 (>=60 mL/min/1.73m^2); Estimated GFR (Non-African Ame 46 (>=60 mL/min/1.73m^2); Glucose 282 mg/dL (74-106); Potassium 3.5 mmol/L (3.5-5.1); Sodium 138 mmol/L (136-145)
[2024-12-11 05:27] LABS: Basophils Percent Auto 0.1 % (0.2-2.0); Hematocrit 37.4 % (36.0-48.0); Hemoglobin 12.3 g/dL (12.0-16.0); Immature Granulocytes Abs Auto 0.08 10^3/uL (0.00-0.03); Immature Granulocytes Pct Auto 0.5 % (0.0-0.5); Lymphocytes Absolute Auto 0.1 10^3/uL (1.2-3.8); Lymphocytes Percent Auto 0.9 % (20.5-60.0); Mean Corpuscular HGB Conc 32.9 g/dL (29.9-35.2); Mean Corpuscular Hemoglobin 28.9 pg (26.7-34.0); Mean Platelet Volume 9.6 fL (9.5-13.5); Monocytes Absolute Auto 0.1 10^3/uL (0.3-0.8); Monocytes Percent Auto 0.8 % (1.7-12.0); Neutrophils Absolute Auto 15.8 10^3/uL (1.4-6.5); Neutrophils Percent Auto 97.7 % (43.0-75.0); Platelet Count 387 10^3/uL (150-450); Red Blood Count 4.25 10^6/uL (4.20-5.40); White Blood Count 16.1 10^3/uL (4.0-11.0)
--- NOTE | 2024-12-11 05:45 | P.PN_ITS ---
Progress Note: Subjective Subjective Interval history: Patient was sleeping when I walked in the room but awakens easily, just feels still with shortness of breath. But admits to starting the day out when discharge treatment last night Exam Constitutional Vital Signs, click to edit/add: Last Vital Signs Temp 98.3 F 12/11/24 00:10 Pulse 86 12/11/24 04:29 Resp 18 12/11/24 04:29 BP 117/77 12/11/24 00:10 Pulse Ox 85 L 12/11/24 05:14 O2 Del Method Room Air 12/11/24 05:14 O2 Flow Rate 1 12/11/24 04:29 Documenting provider has reviewed patient's vital signs: yes Common normals: apparent distress (Mild respiratory distress) Chest Common normals: inspection of chest normal; palpation of chest abnormal (Tenderness right lower rib cage anterior and posterior) Respiratory Common normals: abnormal respiratory effort (Mild respiratory distress with conversational dyspnea) Effort & inspection: able to speak in complete sentences Auscultation: rhonchi (Unchanged from previous), diminished lung sounds and egophony (Right lower lobe) Cardio Common normals: regular rate and regular rhythm GI Common normals: Normal to inspection, nondistended, normoactive bowel sounds present Back & Pelvis Common normals: CVA tenderness ((Lumbosacral muscle tenderness) Progress Note: Objective Labs Labs: Short CBC 12/10/24 12/10/24 12/11/24 Range/Units 15:27 18:21 04:33 WBC 16.8 H 18.7 H 16.1 H (4.0-11.0) 10^3/uL Hgb 13.1 11.7 L 12.3 (12.0-16.0) g/dL Hct 39.3 35.3 L 37.4 (36.0-48.0) % Plt Count 417 349 387 (150-450) 10^3/uL BMP 12/10/24 12/11/24 15:27 04:33 Sodium 135 L 138 Potassium 3.7 3.5 Chloride 99 100 Carbon Dioxide 25.7 24.9 BUN 15.0 18.0 Creatinine 0.96 1.18 H Glucose 112 H 282 H Calcium 10.6 H 10.6 H Liver Function 12/10/24 Range/Units 18:21 Total Bilirubin 0.4 (0.2-1.0) mg/dL Direct Bilirubin 0.1 (0.0-0.2) mg/dL AST 14 L (15-37) U/L ALT 8 L (14-59) U/L Alkaline Phosphatase 76 (46-116) U/L Albumin 2.4 L (3.4-5.0) g/dL Urine // Range/Units 15:00 Urine Color Lt. yellow (YELLOW) Urine Clarity Clear (CLEAR) Urine pH 6.0 (5.0-9.0) Ur Specific [place] 1.015 (1.005-1.025) Urine Protein Negative (NEG/TRACE) mg/dL Urine Glucose (UA) Negative (NEGATIVE) mg/dL Progress Note: A&P Assessment and Plan (1) Hypoxemia: (2) Urinary tract infection: (3) Right lower lobe pneumonia: (4) COPD exacerbation: (5) Bulging lumbar disc: (6) Left lumbar radiculopathy: Plan Admission findings: Fever, tachycardia, respiratory distress, elevated blood pressure, acute hypoxia with O2 sat of less than 89%, leukocytosis with left shift consistent with a bacterial process secondary to right lower lobe pneumonia causing an acute exacerbation of COPD leading to sepsis Sepsis due to right lower lobe pneumonia causing acute exacerbation of COPD- consult to pulmonology, check x-ray for ribs and continue to try to wean supplemental oxygen, she has oxygen at home but she does not use it Hyponatremia-improved to normal Drug-induced hyperglycemia-insulin sliding scale Hypomagnesemia-supplement Acute UTI-culture pending, continue with antibiotics as outlined above Intractable lumbar radiculopathy-continue with home medications Right-sided rib pain, check x-ray of ribs Sinus tachycardia in ER-improved Coronary artery disease secondary to hypercholesterolemia by history-stents been placed, no chest pain Admission status: Patient with acute hypoxia and evidence for sepsis secondary to right lower lobe pneumonia, medically necessary treatment will span 2 midnights. Inpatient status ?
[2024-12-11] MEDS: GABAPENTIN 300 MG CAPSULE PO ×3 (06:15→21:20)
[2024-12-11] MEDS: PREGABALIN 100 MG CAPSULE PO ×3 (06:15→21:20)
--- NOTE | 2024-12-11 08:17 | CM.NOTE ---
Rounds made with Dr. Wyatt, discussed with pt diagnosis and plan of care. Pt continues to require oxygen, pt states she has not been using HS oxygen for several months. PT and OT will evaluate pt for discharge planning.
[2024-12-11] MEDS: INSULIN ASPART 300 UNIT/3 ML PEN SUBQ ×4 (08:35→21:23)
[2024-12-11] MEDS: GUAIFENESIN 600 MG TAB.ER.12H 1200 MG PO ×2 (08:38→20:13)
[2024-12-11] MEDS: MAGNESIUM OXIDE 400 MG TABLET PO ×2 (08:38→21:20)
--- NOTE | 2024-12-11 09:34 | XR_ITS ---
The [address] [address] Patient Name: SANDRA Easton COVERT MRN: [id number] date: 1955 Sex: F Assigned Patient Location: Current Patient Location: Accession/Order Number: [id number] Exam Date: 12/11/2024 11:05 Report Date: 12/11/2024 11:14 At the request of: ANABEL ISBELL MD Procedure: XR ribs RT min 3V w CXR1V PA CHEST WITH ? RIBS: CLINICAL HISTORY: Right chest wall tenderness for the past couple days. No injury. COMPARISON: 12/10/2024 The chest film shows obstructive lung disease with continued apical scarring and postoperative changes. The infiltrative change seen at the right base on the comparison is slightly improved. There is no developing consolidation, sizable effusion or pneumothorax. The cardiac, hilar and mediastinal silhouettes are stable. AP and both oblique views of the right ribs show osteopenia. No definite acute displaced fractures or bony destruction. XR/XR ribs RT min 3V w CXR1V IMPRESSION: OBSTRUCTIVE LUNG DISEASE WITH SCARRING. SLIGHT INTERVAL IMPROVEMENT OF RIGHT BASILAR PARENCHYMAL CHANGE. NO ACUTE RIB FINDINGS. Impression dictated by: Allyn Contreras M.D. 12/11/2024 11:14 AM Dictation Location: [place] [address] Electronically authenticated by: [id number] Y Date: 12/11/2024 11:14
--- NOTE | 2024-12-11 09:42 | P.PLCN_ITS ---
History of Present Illness History of Present Illness Consult date: 12/11/24 Requesting physician: Gt Wyatt Reason for consult: pneumonia Chief complaint: RLL PNEUMONIA HYPOKEMIA UTI Narrative: 69yo female, well known to me. Last outpatient visit with me was 11/04/2024 - she has severe bullous emphysema (FEV1 31%, normal AAT genotype MM), on Stiolto. She complained of congestion and productive cough. Rx'd Mucinex - she refused saline nebs. She states her breathing has been stable up until a few days ago. However, I noted that she went to the ER on 11/10/2024 unbeknownst to me for AECOPD - our office never received any notification from either the ER or the patient to return here for sooner F/U. Several days ago, her breathing did worsen with even more sputum production. Had 1 single streak of blood during a coughing episode. Worsening weakness/fatigue. Fevers. She came to the ER - Temp 102.2'F and HR 121. CXR noted RLL infiltrate. She was admitted for further therapy. Today, she states she is feeling a little better. Still having quite a bit of congestion. It is difficult to obtain history from the patient at times as her sister, who is her caregiver, constantly interrupts and talks over the patient. Review of Systems ROS Status of ROS 10 or more systems reviewed and unremark able except as noted in history and below [facility] Medical History Right lower lobe pneumonia ?J18.9 - Pneumonia, unspecified organism (ICD-10) Acute pyelonephritis ?N10 - Acute pyelonephritis (ICD-10) Sepsis ?A41.9 - Sepsis, unspecified organism (ICD-10) Immunosuppressed status ?D84.9 - Immunodeficiency, unspecified (ICD-10) Chronic steroid use Temporal arteritis ?M31.6 - Other giant cell arteritis (ICD-10) CKD stage 3b, GFR 30-44 ml/min ?N18.32 - Chronic kidney disease, stage 3b (ICD-10) Chronic respiratory failure with hypoxia ?J96.11 - Chronic respiratory failure with hypoxia (ICD-10) History of tobacco abuse ?Z87.891 - Personal history of nicotine dependence (ICD-10) CAD (coronary artery disease) ?I25.10 - Atherosclerotic heart disease of [place] coronary artery without angina pectoris (ICD-10) Essential hypertension ?I10 - Essential (primary) hypertension (ICD-10) Type 2 diabetes mellitus with hyperglycemia ?E11.65 - Type 2 diabetes mellitus with hyperglycemia (ICD-10) Polymyalgia rheumatica ?M35.3 - Polymyalgia rheumatica (ICD-10) Non-ST elevated myocardial infarction (non-STEMI) ?I21.4 - Non-ST elevation (NSTEMI) myocardial infarction (ICD-10) Hyperlipidemia ?E78.5 - Hyperlipidemia, unspecified (ICD-10) Hyperglycemia, drug-induced ?R73.9 - Hyperglycemia, unspecified (ICD-10) ?T50.905A - Adverse effect of unspecified drugs, medicaments and biological substances, initial encounter (ICD-10) COPD (chronic obstructive pulmonary disease) ?J44.9 - Chronic obstructive pulmonary disease, unspecified (ICD-10) Depression ?F32.A - Depression, unspecified (ICD-10) Acid reflux ?K21.9 - Gastro-esophageal reflux disease without esophagitis (ICD-10) Nerve pain ?M79.2 - Neuralgia and neuritis, unspecified (ICD-10) Back pain ?M54.9 - Dorsalgia, unspecified (ICD-10) Thoracotomy scar of right chest ?L90.5 - Scar conditions and fibrosis of skin (ICD-10) History of oxygen administration ?Z99.81 - Dependence on supplemental oxygen (ICD-10) UTI (urinary tract infection), bacterial ?N39.0 - Urinary tract infection, site not specified (ICD-10) ?A49.9 - Bacterial infection, unspecified (ICD-10) Urethral stenosis Surgical History Status post bilateral cataract extraction ?Z98.41 - Cataract extraction status, right eye (ICD-10) ?Z98.42 - Cataract extraction status, left eye (ICD-10) 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 [part of] (ICD-10) Stented coronary artery ?Z95.5 - Presence of coronary angioplasty implant and graft (ICD-10) Family History Mother Family history of COPD (chronic obstructive pulmonary disease) Brother Family history of COPD (chronic obstructive pulmonary disease) Father Family history of COPD (chronic obstructive pulmonary disease) Family history of stroke Social History (Updated 12/10/24 @ 18:46 by Lisa Hunt) Within the past year, how often did you have a drink containing alcohol: never Within the past year, how many standard drinks containing alcohol did you have on a typical day: 1 or 2 Within the past year, how often did you have six or more drinks on one occasion: never Total score: 0 Score interpretation: A score less than 3 is consistent with normal alcohol consumption. Smoking status: Former smoker Non-prescribed substance use: cannabis (any form) Non-prescribed substance use details: uses marijuana to help sleep Previous occupational history: disabled Highest level of school completed/degree received: Associate degree: academic program Are you now , , , , never or living with a partner: Little interest or pleasure in doing things: not at all Feeling down, depressed, or hopeless: not at all Feel stressed/tense/nervous/anxious/difficulty sleeping: only a little Do you think of yourself as: straight/heterosexual Gender Identity: female Meds Home Medications and Allergies Home Medications ?Medication ?Instructions ?Recorded ?Confirmed ?Type pregabalin 100 mg capsule (Lyrica) 100 mg PO TID 03/0612/10/24 History albuterol sulfate 90 mcg/actuation 2 puff inhalation Q 4H PRN 12/18/23 12/10/24 History aerosol inhaler shortness of breath or wheez ing tiotropium 2.5 mcg-olodaterol 2.5 2 puff inhalation [place]A 11/10/24 12/10/24 History mcg/actuation mist for inhalation (Stiolto Respimat) atorvastatin 40 mg tablet 40 mg PO .QHS 12/10/2412/10 History gabapentin 300 mg capsule 300 mg PO Q8H 12/10/2412/10 History guaifenesin 600 mg tablet, 1,200 mg PO Q12H 12/10/24 0 12/10/24 History extended release 12 hr Allergies Allergy/AdvReac Type Severity Reaction Status Date / Time azithromycin (From Zithromax Allergy Severe Unknown Verified 12/10/24 14:33 Z-Leonardo) Latex, Natural Rubber Allergy Severe Unknown Verified 12/10/24 14:33 Exam Narrative Exam Narrative: Constitutional: Chonically ill. Underweight HEENT: Wearing nasal cannula. No oral candidiasis Chest: Mild tactile fremitus in the right base Lungs: Bibasilar rhonchi R > L Heart: Tachycardic, regular rhythm Abdomen: Soft Extremities: No edema. No cyanosis Neuro: No fasciculations Psych: Appropriate affect Constitutional Vital Signs, click to edit/add: Last Vital Signs Temp 97.6 F 12/11/24 07:59 Pulse 98 H 12/11/24 07:59 Resp 20 12/11/24 07:59 BP 109/62 12/11/24 07:59 Pulse Ox 90 L 12/11/24 07:59 O2 Del Method Nasal Cannula 12/11/24 07:59 O2 Flow Rate 1 12/11/24 07:59 Results Laboratory Findings Abnormal lab findings: Abnormal Labs 12/10/24 12/10/24 12/10/24 15:00 15:27 18:21 WBC 16.8 H 18.7 H RBC 4.07 L Hgb 11.7 L Hct 35.3 L MPV 9.2 L 8.8 L Neut % (Auto) 87.7 H 87.3 H Lymph % (Auto) 4.5 L 4.1 L Wilkinson % (Auto) Eos % (Auto) 0.2 L 0.1 L Baso % (Auto) Neut # (Auto) 14.8 H 16.3 H Lymph # (Auto) 0.8 L 0.8 L Wilkinson # (Auto) 1.2 H 1.5 H Abs Immat Gran (auto) 0.07 H 0.06 H Sodium 135 L Creatinine Est GFR ( Amer) Est GFR (Non-Af Amer) 58 L Glucose 112 H Calcium 10.6 H Magnesium 1.5 L AST 14 L ALT 8 L Total Protein 5.8 L Albumin 2.4 L Urine Ketones Trace A Urine Occult Blood Small A Ur Leukocyte Esterase Moderate A Urine RBC 2-5 A Urine WBC 20-50 A Urine Bacteria Trace A Urine Yeast Seen A POC Glucose 12/10/24 12/11/24 21:35 04:33 WBC 16.1 H RBC Hgb Hct MPV Neut % (Auto) 97.7 H Lymph % (Auto) 0.9 L Wilkinson % (Auto) 0.8 L Eos % (Auto) 0.0 L Baso % (Auto) 0.1 L Neut # (Auto) 15.8 H Lymph # (Auto) 0.1 L Wilkinson # (Auto) 0.1 L Abs Immat Gran (auto) 0.08 H Sodium Creatinine 1.18 H Est GFR ( Amer) 55 L Est GFR (Non-Af Amer) 46 L Glucose 282 H Calcium 10.6 H Magnesium AST ALT Total Protein Albumin Urine Ketones Urine Occult Blood Ur Leukocyte Esterase Urine RBC Urine WBC Urine Bacteria Urine Yeast POC Glucose 119 H Assessment and Plan Assessment and Plan (1) Pneumonia: Assessment and Plan: 1. Pneumonia RLL. Presumptive bacterial. Currently on Rocephin + Levaquin for severe community acquired pneumonia. Can continue with that for now - monitor for adverse effects. 2. Acute exacerbation of COPD. Provoked by #1. Has severe bullous emphysema. Currently on Stiolto outpatient. Had exacerbation 11/10/2024 and an apparent bout of pneumonia 08/2024 - the patient has a history of not informing the office of acute illnesses; I only learn after the fact weeks to months later. Congestion is the major complaint at this time. Last visit 11/04/2024, Mucinex was added - she refused saline nebs. She has PEP at home but does not use it. Recommend during this hospitalization to add hypertonic saline nebs in conjunction with PEP to promote a good pulmonary toilet. She states she is very sedentary at home - I watch TV all day long. She was instructed to keep the PEP by where she watches TV and to use it 10x during every advertisement. Discussed sedentary lifestyle can adversely affect her pulmonary function - lungs function best in an upright position. Activity/ambulation helps promote expectoration. 3. Chronic hypoxic respiratory failure. Patient has home O2. States SpO2 has been running in the 90's up until recently. It was 88% on RA in the ER. She should continue with O2 for now. 4. Sepsis. Present on admission. Secondary to #1. 5. Underweight. BMI 15.9 today; it was 16.3 on 11/04/2024. Consistent with pulmonary cachexia. [facility] referral recommended. 6. History of tobacco abuse. 80 pack-year history. Quit 2021. LDCT is due 02/2025. 7. Hypercalcemia. Mild elevation. Defer to hospitalist and/or PCP for further w/up. 8. Hypomagnesemia. Mild decrease. Replace. Defer to hospitalist and/or PCP for further w/up. Qualifiers: Pneumonia type: due to unspecified organism Laterality: right Lung lo cation: lower lobe of lung Qualified Code(s): J18.9 - Pneumonia, unspecified organism Plan Patient needs F/U visit with me outpatient ~2 weeks after discharge.
[2024-12-11] MEDS: ACETAMINOPHEN 500 MG TABLET 1000 MG PO (10:10)
[2024-12-11 11:32] LABS: Glucometer 261 mg/dL (74-106)
--- NOTE | 2024-12-11 13:51 | SWNOTE1 ---
MARLENE and I met with pt in room. Pt's sister came in shortly after. Pt lives at home with . Pt needs some assistance at home, she uses a wheelchair and bedside commode. She also has a rollator and an inogen she does not currently use. MARLENE and I discussed therapy recommendation to go to snf. Patient was agreeable and would like to go to the [facility]. Pt did mention she believes [employer] is her primary insurance and Medicare is secondary. SW to check into this. SW sent referral to the [facility].
--- NOTE | 2024-12-11 14:39 | CM.NOTE ---
Important Message From Medicare discussed wtih pt, pt verbalizes understanding and signs paper. Original given to pt and copy placed on pt's chart. Dr. Mora also was in to evaluate pt and pt does plan on f/u with Dr. Mora as outpatient for COPD.
--- NOTE | 2024-12-11 14:47 | SWNOTE1 ---
Pt's primary insurance is [employer] and Medicare is secondary. SW called the [facility] and they are not network with [employer]. Went back and spoke with pt and her sister in room as well. SW did mention other facility in [place] is [facility]. Pt and sister are alright with this. SW to send referral.
--- NOTE | 2024-12-11 14:50 | SWNOTE1 ---
Referral sent to [facility]. Referral included face sheet, ED note, H&P, provider notes, case management report, nursing notes, diagnostic imaging, med list, and PT/OT notes.
--- NOTE | 2024-12-11 15:01 | SWNOTE1 ---
SW received a message from Marti at [facility] and they are able to accept, Marti starting precert.
--- NOTE | 2024-12-11 15:41 | SWNOTE1 ---
SW completed HCPOA and living will documentation with pt. Copy will be placed in chart and extra copy and booklet will be given to pt.
[2024-12-11 15:46] LABS: A. calcoaceticus-baumannii Cpx NOT DETECTED (NOT DETECTE); Bacteroides fragilis NOT DETECTED (NOT DETECTE); Candida albicans NOT DETECTED (NOT DETECTE); Candida auris NOT DETECTED (NOT DETECTE); Candida glabrata NOT DETECTED (NOT DETECTE); Candida krusei NOT DETECTED (NOT DETECTE); Candida parapsilosis NOT DETECTED (NOT DETECTE); Candida tropicalis NOT DETECTED (NOT DETECTE); Cryptococcus neoformans/gattii NOT DETECTED (NOT DETECTE); Enterobacter cloacae complex NOT DETECTED (NOT DETECTE); Enterobacterales NOT DETECTED (NOT DETECTE); Enterococcus faecalis NOT DETECTED (NOT DETECTE); Enterococcus faecium NOT DETECTED (NOT DETECTE); Haemophilus influenzae NOT DETECTED (NOT DETECTE); Klebsiella aerogenes NOT DETECTED (NOT DETECTE); Klebsiella pneumoniae group NOT DETECTED (NOT DETECTE); Listeria monocytogenes NOT DETECTED (NOT DETECTE); Neisseria meningitidis NOT DETECTED (NOT DETECTE); Proteus spp. NOT DETECTED (NOT DETECTE); Pseudomonas aeruginosa NOT DETECTED (NOT DETECTE); Salmonella spp. NOT DETECTED (NOT DETECTE); Serratia marcescens NOT DETECTED (NOT DETECTE); Staphylococcus lugdunensis NOT DETECTED (NOT DETECTE); Stenotrophomonas maltophilia NOT DETECTED (NOT DETECTE); Streptococcus agalactiae NOT DETECTED (NOT DETECTE); Streptococcus pneumoniae NOT DETECTED (NOT DETECTE); Streptococcus pyogenes NOT DETECTED (NOT DETECTE); Streptococcus spp. NOT DETECTED (NOT DETECTE)
[2024-12-11] MEDS: OXYCODONE HCL/ACETAMINOPHEN 5MG/325MG 1 TAB PO ×2 (15:52→21:20)
[2024-12-11 16:25] LABS: Glucometer 381 mg/dL (74-106)
[2024-12-11 16:25] LABS: Glucometer 383 mg/dL (74-106)
[2024-12-11 16:51] LABS: Source BLOOD
[2024-12-11 16:54] LABS: Staphylococcus epidermidis DETECTED (NOT DETECTE); Staphylococcus spp. DETECTED (NOT DETECTE)
[2024-12-11] MEDS: CEFTRIAXONE 1,000 MG in 0.9 % SODIUM CHLORIDE 50 ML 100 MG IV (20:13)
[2024-12-11] MEDS: SODIUM CHLORIDE 3% INHALATION 15 ML NEB 3 ML IH (20:44)
[2024-12-11 21:30] LABS: Glucometer 267 mg/dL (74-106)
[2024-12-12] VITALS (16 sets, daily range): BP systolic 109–138; BP diastolic 59–69; PULSE 90–110; TEMP 36.5–36.8; O2SAT 87–98
[2024-12-12] MEDS: IPRATROPIUM/ALBUTEROL SULFATE 3 ML AMPUL.NEB IH ×5 (04:46→22:44)
[2024-12-12] MEDS: PREGABALIN 100 MG CAPSULE PO ×3 (05:09→21:41)
[2024-12-12] MEDS: GABAPENTIN 300 MG CAPSULE PO ×3 (05:09→21:52)
--- NOTE | 2024-12-12 05:48 | P.PN_ITS ---
Progress Note: Subjective Subjective Interval history: Patient is not feel significantly improved with the breathing, radicular pain is still not persisting as well Exam Constitutional Vital Signs, click to edit/add: Last Vital Signs Temp 97.9 F 12/12/24 04:00 Pulse 104 H 12/12/24 04:46 Resp 18 12/12/24 04:46 BP 109/59 12/12/24 04:00 Pulse Ox 87 L 12/12/24 05:26 O2 Del Method Room Air 12/12/24 05:26 O2 Flow Rate 1 12/12/24 04:46 Documenting provider has reviewed patient's vital signs: yes Common normals: apparent distress (Mild respiratory distress) Chest Common normals: inspection of chest normal; palpation of chest abnormal (Tenderness right lower rib cage anterior and posterior) Respiratory Common normals: abnormal respiratory effort (Less, conversational dyspnea) Effort & inspection: able to speak in complete sentences Auscultation: rhonchi (Slightly better air exchange less rhonchi right sided), diminished lung sounds and egophony (Right lower lobe) Cardio Common normals: regular rate and regular rhythm GI Common normals: Normal to inspection, nondistended, normoactive bowel sounds present Back & Pelvis Common normals: CVA tenderness ((Lumbosacral muscle tenderness) Progress Note: A&P Assessment and Plan (1) Pneumonia: Qualifiers: Laterality: right Lung location: lower lobe of lung Pneumonia type: due to unspecified organism Qualified Code(s): J18.9 - Pneumonia, unspecified organism (2) Hypoxemia: (3) Urinary tract infection: (4) Right lower lobe pneumonia: (5) COPD exacerbation: (6) Bulging lumbar disc: (7) Left lumbar radiculopathy: (8) Hyponatremia: (9) Hypomagnesemia: (10) Chronic respiratory failure with hypoxia: (11) CAD (coronary artery disease): Qualifiers: Coronary Disease-Associated Artery/Lesion type: [place] artery [place] vs. transplanted heart: [place] heart Associated angina: without angina Qualified Code(s): I25.10 - Atherosclerotic heart disease of [place] coronary artery without angina pectoris (12) Thrombocythemia: Plan Admission findings: Fever, tachycardia, respiratory distress, elevated blood pressure, acute hypoxia with O2 sat of less than 89%, leukocytosis with left shift consistent with a bacterial process secondary to right lower lobe pneumonia causing an acute exacerbation of COPD leading to sepsis Sepsis due to right lower lobe pneumonia causing acute exacerbation of COPD-with acute exacerbation of chronic hypoxic respiratory failure-adjust aerosols, increase frequency today, maintain current antibiotics Hyponatremia-improved to normal-follow Drug-induced hyperglycemia-insulin sliding scale-continue sliding scale, if improved tomorrow can cut back on steroids Hypomagnesemia-supplement improved to normal Acute UTI-culture pending, continue with antibiotics as outlined above Intractable lumbar radiculopathy-continue with home medications Right-sided rib pain, check x-ray of ribs with no fracture Sinus tachycardia in ER-improved Coronary artery disease secondary to hypercholesterolemia by history-stents been placed, no chest pain Admission status: Patient with acute hypoxia and evidence for sepsis secondary to right lower lobe pneumonia, medically necessary treatment will span 2 midnights. Inpatient status ?
[2024-12-12 06:22] LABS: Anion Gap 15.7; BUN Creatinine Ratio 27.3; Calcium 10.3 mg/dL (8.5-10.1); Carbon Dioxide 23.9 mmol/L (21.0-32.0); Chloride 100 mmol/L (98-107); Estimated GFR (African America 60 (>=60 mL/min/1.73m^2); Estimated GFR (Non-African Ame 50 (>=60 mL/min/1.73m^2); Glucose 211 mg/dL (74-106); Magnesium 1.9 mg/dL (1.8-2.4); Potassium 3.6 mmol/L (3.5-5.1); Sodium 136 mmol/L (136-145)
[2024-12-12 06:30] LABS: Hematocrit 32.4 % (36.0-48.0); Hemoglobin 10.9 g/dL (12.0-16.0); Mean Corpuscular HGB Conc 33.6 g/dL (29.9-35.2); Mean Corpuscular Hemoglobin 29.3 pg (26.7-34.0); Mean Corpuscular Volume 87.1 fL (81.0-99.0); Mean Platelet Volume 10.1 fL (9.5-13.5); Platelet Count 453 10^3/uL (150-450); Red Blood Count 3.72 10^6/uL (4.20-5.40); Red Cell Distribution Width 14.4 % (11.0-15.0); White Blood Count 25.5 10^3/uL (4.0-11.0)
[2024-12-12 07:25] LABS: Glucometer 251 mg/dL (74-106)
[2024-12-12 08:10] LABS: Lymphocytes Absolute Manual 0.76 10^3/uL (1.20-3.80); Monocytes Absolute Manual 0.25 10^3/uL (0.30-0.80); Segmented Neut Absolute Manual 24.48 10^3/uL (1.4-6.5)
[2024-12-12] MEDS: GUAIFENESIN 600 MG TAB.ER.12H 1200 MG PO ×2 (08:51→21:41)
[2024-12-12] MEDS: MAGNESIUM OXIDE 400 MG TABLET PO ×2 (08:51→21:41)
[2024-12-12] MEDS: INSULIN ASPART 300 UNIT/3 ML PEN SUBQ ×3 (08:51→21:54)
--- NOTE | 2024-12-12 09:02 | CM.NOTE ---
Rounds made with Dr. Wyatt, pt continues to c/o increased shortness of breath, pt will discharge to skilled facility when medically stable.
[2024-12-12] MEDS: METHYLPREDNISOLONE SOD SUCC PF 125 MG/2 ML VIAL 60 MG IVP ×3 (09:25→21:50)
[2024-12-12] MEDS: SODIUM CHLORIDE 3% INHALATION 15 ML NEB 3 ML IH ×2 (10:50→22:44)
--- NOTE | 2024-12-12 11:10 | PT.DAILY ---
Physical Therapy Daily Note PT Daily Note/Assess Start: 12/12/24 11:02 Freq: Status: Active Protocol: Document 12/12/24 11:03 WILLEM (Rec: 12/12/24 11:09 WILLEM [id number]) Physical Therapy Daily Note/Assessment Time In/Time Out Time In 10:08 Time Out 10:20 Pain In Pain N/A Pain Out Pain N/A Subjective Subjective Pt supine upon arrival. Agreeable to PT. Therapeutic Exercise Time Therapeutic Exercise 4 Minutes (minutes) Therapeutic Exercise 0 Units Therapeutic Exercise Treatment Therapeutic Exercise Pt performs seated ex while sitting unsupported at EOB Treatment for 4 min. Pt unable to advance L LE for or september - requires AA for this. Therapeutic Activity Time Therapeutic Activity 6 Minutes (minutes) Therapeutic Activity 1 Units Therapeutic Activity Treatment Bed Mobility Ability Standby Assistance Chair Transfer Contact Guard Assist Ability Therapeutic Activity Supine>sit SBA with increased time needed. Pt requires Comments UE support on L LE to advance it to EOB but no outside support needed. Sits EOB 4 min to perform seated ex. Sit>stand to RW CGA for safety. Pt amb 15' with RW around bed to BS chair with CGA and assist for IV pole. Pt remains in BS chair with present and needs met. Total Physical Therapy Time Total Therapy 10 Minutes Total Physical 1 Therapy Units Summary Daily Note Summary Improved transfer and gait ability on this date.
[2024-12-12 11:36] LABS: Glucometer 198 mg/dL (74-106)
[2024-12-12] MEDS: OXYCODONE HCL/ACETAMINOPHEN 5MG/325MG 1 TAB PO ×2 (12:12→18:28)
--- NOTE | 2024-12-12 14:39 | CM.NOTE ---
Updates e-mailed to Marti at [facility], PT notes and Physician progress note.
[2024-12-12 16:14] LABS: Glucometer 115 mg/dL (74-106)
[2024-12-12] MEDS: LEVOFLOXACIN IN DEXTROSE 5 % 750 MG/150 ML PREMIX 100 MG IV (16:23)
--- NOTE | 2024-12-12 18:22 | DIETREC ---
Recommend 237 mL Ensure Original BID; pt prefers chocolate.
[2024-12-12 20:19] LABS: Glucometer 295 mg/dL (74-106)
[2024-12-12] MEDS: CEFTRIAXONE 1,000 MG in 0.9 % SODIUM CHLORIDE 50 ML 100 MG IV (21:42)
[2024-12-13] VITALS (14 sets, daily range): BP systolic 106–173; BP diastolic 52–90; PULSE 90–107; TEMP 36.4–36.9; O2SAT 90–98
[2024-12-13] MEDS: OXYCODONE HCL/ACETAMINOPHEN 5MG/325MG 1 TAB PO ×4 (01:50→20:43)
[2024-12-13] MEDS: IPRATROPIUM/ALBUTEROL SULFATE 3 ML AMPUL.NEB IH ×6 (03:59→23:34)
[2024-12-13] MEDS: METHYLPREDNISOLONE SOD SUCC PF 125 MG/2 ML VIAL 60 MG IVP ×4 (04:58→22:13)
[2024-12-13] MEDS: GABAPENTIN 300 MG CAPSULE PO ×3 (05:13→22:18)
[2024-12-13] MEDS: PREGABALIN 100 MG CAPSULE PO ×3 (05:13→22:13)
[2024-12-13 05:39] LABS: Basophils Percent Auto 0.1 % (0.2-2.0); Hematocrit 32.5 % (36.0-48.0); Hemoglobin 10.8 g/dL (12.0-16.0); Immature Granulocytes Abs Auto 0.27 10^3/uL (0.00-0.03); Immature Granulocytes Pct Auto 1.2 % (0.0-0.5); Lymphocytes Absolute Auto 0.3 10^3/uL (1.2-3.8); Lymphocytes Percent Auto 1.2 % (20.5-60.0); Mean Corpuscular HGB Conc 33.2 g/dL (29.9-35.2); Mean Corpuscular Hemoglobin 28.9 pg (26.7-34.0); Mean Corpuscular Volume 86.9 fL (81.0-99.0); Mean Platelet Volume 9.5 fL (9.5-13.5); Monocytes Absolute Auto 0.5 10^3/uL (0.3-0.8); Neutrophils Absolute Auto 22.3 10^3/uL (1.4-6.5); Neutrophils Percent Auto 95.5 % (43.0-75.0); Platelet Count 503 10^3/uL (150-450); Red Blood Count 3.74 10^6/uL (4.20-5.40); Red Cell Distribution Width 14.6 % (11.0-15.0); White Blood Count 23.3 10^3/uL (4.0-11.0)
[2024-12-13 05:44] LABS: Anion Gap 15.4; BUN Creatinine Ratio 25.4; Calcium 9.8 mg/dL (8.5-10.1); Carbon Dioxide 24.6 mmol/L (21.0-32.0); Chloride 101 mmol/L (98-107); Estimated GFR (African America 51 (>=60 mL/min/1.73m^2); Estimated GFR (Non-African Ame 42 (>=60 mL/min/1.73m^2); Glucose 241 mg/dL (74-106); Sodium 137 mmol/L (136-145)
[2024-12-13 07:50] LABS: Glucometer 278 mg/dL (74-106)
[2024-12-13] MEDS: INSULIN ASPART 300 UNIT/3 ML PEN SUBQ ×4 (08:43→22:14)
[2024-12-13] MEDS: GUAIFENESIN 600 MG TAB.ER.12H 1200 MG PO ×2 (08:49→20:43)
[2024-12-13] MEDS: MAGNESIUM OXIDE 400 MG TABLET PO ×2 (08:49→20:43)
--- NOTE | 2024-12-13 09:19 | P.PN_ITS ---
Progress Note: Subjective Subjective Interval history: Patient resting in bed, appears comfortable. She is in no acute distress. Has pillow between her legs as she says her back has been bothering her for months. She was suppose to have EMG this week as outpatient. Her plan is to go to [facility] for skilled rehab. Exam Narrative Exam Narrative: General: Patient is alert, and oriented to person, place and time with normal affect, proper hygiene Skin: pallor Head: atraumatic, acephalic Eyes: PERRLA, no nystagmus present, conjunctiva clear, no scleral icterus Ears: normal gross auditory acuity Heart: Normal rate and rhythm, no murmurs/rubs/gallops Lungs: no audible wheezes, crackles and normal breath sounds all lung conrad Abdomen: Normal audible bowel sounds, no distension, No palpable masses, no organomegaly, no rebound/guarding/ or rigidity Musculoskeletal: muscle atrophy noted, ROM is limited due to being in hospital bed, no swelling bilateral lower extremities Neuro: CN II-X grossly intact Constitutional Vital Signs, click to edit/add: Last Vital Signs Temp 98.4 F 12/13/24 07:46 Pulse 90 12/13/24 08:11 Resp 18 12/13/24 08:57 BP 154/77 H 12/13/24 07:46 Pulse Ox 98 12/13/24 08:11 O2 Del Method Nasal Cannula 12/13/24 08:11 O2 Flow Rate 1 12/13/24 08:11 Progress Note: Objective Labs Labs: Short CBC 12/13/24 Range/Units 05:24 WBC 23.3 H (4.0-11.0) 10^3/uL Hgb 10.8 L (12.0-16.0) g/dL Hct 32.5 L (36.0-48.0) % Plt Count 503 H (150-450) 10^3/uL BMP 12/13/24 05:24 Sodium 137 Potassium 4.0 Chloride 101 Carbon Dioxide 24.6 BUN 32.0 H Creatinine 1.26 H Glucose 241 H Calcium 9.8 Progress Note: A&P Assessment and Plan (1) Right lower lobe pneumonia: Assessment and Plan: Patient continues to get Levaquin, Rocephin and IV solumedrol. Scheduled nebs and saline nebs. She is currently requiring 1L of [place] oxygen and was on PRN oxygen at home Qualifiers: Pneumonia type: due to unspecified organism Qualified Code(s): J18.9 - Pneumonia, unspecified organism (2) Sepsis: Assessment and Plan: present on admission and has since resolved. Qualifiers: Acute respiratory failure type: with hypoxia Sepsis acute organ dysfunction status: with acute organ dysfunction Sepsis type: sepsis due to unspecified organism Severe sepsis acute organ dysfunction type: acute respiratory failure Severe sepsis shock status: without septic shock Qualified Code(s): A41.9 - Sepsis, unspecified organism; R65.20 - Severe sepsis without septic shock; J96.01 - Acute respiratory failure with hypoxia (3) Hypoxemia: Assessment and Plan: Acute on chronic resp failure. She is currently on 1L via [place] oxygen and improving. (4) Urinary tract infection: Assessment and Plan: currently on IV antibiotics, urine culture pending Qualifiers: Hematuria presence: without hematuria Urinary tract infection type: acute cystitis Qualified Code(s): N30.00 - Acute cystitis without hematuria (5) COPD exacerbation: Assessment and Plan: secondary to #1 (6) Left lumbar radiculopathy: Assessment and Plan: continue with IV steroids for pain control (7) Hypomagnesemia: Assessment and Plan: continue to follow and replace as needed. (8) Chronic respiratory failure with hypoxia: Assessment and Plan: seems to be back to baseline (9) CAD (coronary artery disease): Assessment and Plan: continue atorvastatin Qualifiers: Associated angina: without angina Coronary Disease-Associated Artery/Lesion type: [place] artery [place] vs. 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
--- NOTE | 2024-12-13 10:07 | PT.DAILY ---
Physical Therapy Daily Note PT Daily Note/Assess Start: 12/12/24 11:02 Freq: Status: Active Protocol: Document 12/13/24 09:58 [id number] (Rec: 12/13/24 10:07 [id number]) Physical Therapy Daily Note/Assessment Time In/Time Out Time In 07:46 Time Out 08:10 Pain In Pain Level 7 Pain Out Pain Level 5 Subjective Subjective Patient received supine in bed. States her L leg is painful and does not work well. Requests to use BSC. Therapeutic Exercise Time Therapeutic Exercise 8 Minutes (minutes) Therapeutic Exercise 1 Units Therapeutic Exercise Treatment Therapeutic Exercise Patient performed supine DUSTY LE ankle pumps, quad/glut Treatment sets x 10 reps. Seated in chair at bedside DUSTY LE toe/ heel raises, LAQ and marching x 10 reps. L LE is MOD to MAX A +1. Therapeutic Activity Time Therapeutic Activity 16 Minutes (minutes) Therapeutic Activity 1 Units Therapeutic Activity Treatment Bed Mobility Ability Contact Guard Assist Chair Transfer Contact Guard Assist,Minimum Assist Ability Therapeutic Activity Patient transferred bed to BSC with CGA to MIN A +1. Comments Independent in cleansing drake area. Transferred BSC to EOB w/ MIN A +1. Patient is able to sit EOB with 1 UE support. Transferred bed to 2WW CGA +1. Patient ambulated ~15 ft around bed to bedside chair with CGA + 1. Patient seated in chair with tray beside her, CBWR and needs met. Total Physical Therapy Time Total Therapy 24 Minutes Total Physical 2 Therapy Units Summary Daily Note Summary Patient verbalizes sensitivity to L ankle and LE with palpation to assist with ther ex. Patient demonstrates weakness to L LE and weakness during functional mobility for walking and ther ex. Patient would benefit from skilled therapy to address these functional deficits.
[2024-12-13] MEDS: ENSURE ORIGINAL 237 ML BOTTLE PO (11:03)
[2024-12-13 11:50] LABS: Glucometer 267 mg/dL (74-106)
[2024-12-13] MEDS: SODIUM CHLORIDE 3% INHALATION 15 ML NEB 3 ML IH ×2 (11:58→23:34)
[2024-12-13] MEDS: ACETAMINOPHEN 500 MG TABLET 1000 MG PO (12:40)
[2024-12-13 16:45] LABS: Glucometer 180 mg/dL (74-106)
[2024-12-13] MEDS: CEFTRIAXONE 1,000 MG in 0.9 % SODIUM CHLORIDE 50 ML 100 MG IV (20:43)
[2024-12-13] MEDS: 0.9 % SODIUM CHLORIDE 250 ML 10 ML IV (21:00)
[2024-12-13 21:12] LABS: Glucometer 345 mg/dL (74-106)
[2024-12-13] MEDS: ZOLPIDEM TARTRATE 5 MG TABLET PO (22:13)
[2024-12-14] VITALS (11 sets, daily range): BP systolic 119–174; BP diastolic 65–92; PULSE 91–103; TEMP 36.2–37.1; O2SAT 92–98
[2024-12-14] MEDS: METHYLPREDNISOLONE SOD SUCC PF 125 MG/2 ML VIAL 60 MG IVP ×4 (04:11→21:40)
[2024-12-14] MEDS: OXYCODONE HCL/ACETAMINOPHEN 5MG/325MG 1 TAB PO ×3 (04:12→17:34)
[2024-12-14] MEDS: GABAPENTIN 300 MG CAPSULE PO ×3 (06:23→21:40)
[2024-12-14] MEDS: PREGABALIN 100 MG CAPSULE PO ×3 (06:23→21:40)
[2024-12-14 06:34] LABS: Basophils Percent Auto 0.2 % (0.2-2.0); Eosinophils Absolute Auto 0.1 10^3/uL (0.0-0.7); Eosinophils Percent Auto 0.7 % (0.9-7.0); Hematocrit 32.4 % (36.0-48.0); Hemoglobin 10.7 g/dL (12.0-16.0); Immature Granulocytes Abs Auto 0.33 10^3/uL (0.00-0.03); Immature Granulocytes Pct Auto 1.8 % (0.0-0.5); Lymphocytes Absolute Auto 0.4 10^3/uL (1.2-3.8); Lymphocytes Percent Auto 2.1 % (20.5-60.0); Mean Corpuscular Hemoglobin 28.8 pg (26.7-34.0); Mean Corpuscular Volume 87.3 fL (81.0-99.0); Mean Platelet Volume 9.2 fL (9.5-13.5); Monocytes Absolute Auto 0.6 10^3/uL (0.3-0.8); Monocytes Percent Auto 3.3 % (1.7-12.0); Neutrophils Absolute Auto 16.7 10^3/uL (1.4-6.5); Neutrophils Percent Auto 91.9 % (43.0-75.0); Platelet Count 460 10^3/uL (150-450); Red Blood Count 3.71 10^6/uL (4.20-5.40); Red Cell Distribution Width 14.6 % (11.0-15.0); White Blood Count 18.1 10^3/uL (4.0-11.0)
[2024-12-14 06:43] LABS: Anion Gap 14.5; Calcium 9.2 mg/dL (8.5-10.1); Carbon Dioxide 26.2 mmol/L (21.0-32.0); Chloride 104 mmol/L (98-107); Estimated GFR (African America >60 (>=60 mL/min/1.73m^2); Estimated GFR (Non-African Ame 53 (>=60 mL/min/1.73m^2); Glucose 195 mg/dL (74-106); Magnesium 2.2 mg/dL (1.8-2.4); Potassium 4.7 mmol/L (3.5-5.1); Sodium 140 mmol/L (136-145)
[2024-12-14 07:44] LABS: Glucometer 229 mg/dL (74-106)
[2024-12-14] MEDS: IPRATROPIUM/ALBUTEROL SULFATE 3 ML AMPUL.NEB IH ×5 (08:11→22:50)
[2024-12-14] MEDS: INSULIN ASPART 300 UNIT/3 ML PEN SUBQ ×4 (09:06→21:38)
[2024-12-14] MEDS: GUAIFENESIN 600 MG TAB.ER.12H 1200 MG PO ×2 (09:07→21:39)
[2024-12-14] MEDS: ENSURE ORIGINAL 237 ML BOTTLE PO ×2 (09:07→21:39)
[2024-12-14] MEDS: MAGNESIUM OXIDE 400 MG TABLET PO ×2 (09:08→21:40)
--- NOTE | 2024-12-14 09:17 | PM.PN ---
Progress Note: Subjective Subjective Interval history: Patient resting in bed, appears comfortable. She is in no acute distress. She reports she is ready to go to the Nursing facility for rehab. Exam Narrative Exam Narrative: General: Patient is alert, and oriented to person, place and time with normal affect, proper hygiene Skin: pallor Head: atraumatic, acephalic Eyes: PERRLA, no nystagmus present, conjunctiva clear, no scleral icterus Ears: normal gross auditory acuity Heart: Normal rate and rhythm, no murmurs/rubs/gallops Lungs: no audible wheezes, crackles and normal breath sounds all lung conrad Abdomen: Normal audible bowel sounds, no distension, No palpable masses, no organomegaly, no rebound/guarding/ or rigidity Musculoskeletal: muscle atrophy noted, ROM is limited due to being in hospital bed, no swelling bilateral lower extremities Neuro: CN II-X grossly intact Constitutional Vital Signs, click to edit/add: Last Vital Signs Temp 97.2 F L 12/14/24 08:00 Pulse 95 H 12/14/24 08:12 Resp 20 12/14/24 08:00 BP 159/80 H 12/14/24 08:00 Pulse Ox 93 L 12/14/24 08:12 O2 Del Method Nasal Cannula 12/14/24 08:12 O2 Flow Rate 1 12/14/24 08:12 Progress Note: Objective Labs Labs: Short CBC 12/14/24 Range/Units 06:20 WBC 18.1 H (4.0-11.0) 10^3/uL Hgb 10.7 L (12.0-16.0) g/dL Hct 32.4 L (36.0-48.0) % Plt Count 460 H (150-450) 10^3/uL BMP 12/14/24 06:20 Sodium 140 Potassium 4.7 Chloride 104 Carbon Dioxide 26.2 BUN 34.0 H Creatinine 1.03 H Glucose 195 H Calcium 9.2 Progress Note: A&P Assessment and Plan (1) Right lower lobe pneumonia: Assessment and Plan: Patient continues to get Levaquin, Rocephin and IV solumedrol. Scheduled nebs and saline nebs. She is currently requiring 1L of [place] oxygen and was on PRN oxygen at home Qualifiers: Pneumonia type: due to unspecified organism Qualified Code(s): J18.9 - Pneumonia, unspecified organism (2) Sepsis: Assessment and Plan: present on admission and has since resolved. Qualifiers: Acute respiratory failure type: with hypoxia Sepsis acute organ dysfunction status: with acute organ dysfunction Sepsis type: sepsis due to unspecified organism Severe sepsis acute organ dysfunction type: acute respiratory failure Severe sepsis shock status: without septic shock Qualified Code(s): A41.9 - Sepsis, unspecified organism; R65.20 - Severe sepsis without septic shock; J96.01 - Acute respiratory failure with hypoxia (3) Hypoxemia: Assessment and Plan: Acute on chronic resp failure. She is currently on 1L via [place] oxygen and improving. (4) Urinary tract infection: Assessment and Plan: currently on IV antibiotics, urine culture pending Qualifiers: Hematuria presence: without hematuria Urinary tract infection type: acute cystitis Qualified Code(s): N30.00 - Acute cystitis without hematuria (5) COPD exacerbation: Assessment and Plan: secondary to #1 (6) Left lumbar radiculopathy: Assessment and Plan: continue with IV steroids for pain control (7) Hypomagnesemia: Assessment and Plan: continue to follow and replace as needed. (8) Chronic respiratory failure with hypoxia: Assessment and Plan: seems to be back to baseline (9) CAD (coronary artery disease): Assessment and Plan: continue atorvastatin Qualifiers: Associated angina: without angina Coronary Disease-Associated Artery/Lesion type: [place] artery [place] vs. transplanted heart: [place] heart Qualified Code(s): I25.10 - Atherosclerotic heart disease of [place] coronary artery without angina pectoris (10) Essential hypertension: Assessment and Plan: PRN hydralazine (11) Type 2 diabetes mellitus with hyperglycemia: Assessment and Plan: continue with SSI insulin while on the IV steroids Qualifiers: Diabetes mellitus director long term care insulin use: without director long term care use Qualified Code(s): E11.65 - Type 2 diabetes mellitus with hyperglycemia Plan Patient is a full code Patient is currently a precert for Skilled rehab and hopeful discharge tomorrow.
[2024-12-14] MEDS: PANTOPRAZOLE SODIUM 40 MG TABLET.DR PO ×2 (11:06→21:39)
[2024-12-14] MEDS: SODIUM CHLORIDE 3% INHALATION 15 ML NEB 3 ML IH ×2 (11:50→22:50)
[2024-12-14 11:59] LABS: Glucometer 210 mg/dL (74-106)
[2024-12-14 16:49] LABS: Glucometer 182 mg/dL (74-106)
[2024-12-14] MEDS: LEVOFLOXACIN IN DEXTROSE 5 % 750 MG/150 ML PREMIX 150 MG IV (17:33)
[2024-12-14] MEDS: DOCUSATE SODIUM 100 MG CAPSULE 200 MG PO (21:39)
[2024-12-14] MEDS: POLYETHYLENE GLYCOL 3350 17 GM POWDER PACKET PO (21:39)
[2024-12-14] MEDS: CEFTRIAXONE 1,000 MG in 0.9 % SODIUM CHLORIDE 50 ML 100 MG IV (21:40)
[2024-12-14] MEDS: ZOLPIDEM TARTRATE 5 MG TABLET PO (21:45)
[2024-12-14 22:20] LABS: Glucometer 204 mg/dL (74-106)
[2024-12-15] VITALS (7 sets, daily range): BP systolic 150–188; BP diastolic 76–96; PULSE 92–107; TEMP 36.4–36.7; O2SAT 91–96
[2024-12-15 05:34] LABS: Basophils Absolute Auto 0.1 10^3/uL (0.0-0.1); Basophils Percent Auto 0.5 % (0.2-2.0); Hematocrit 34.6 % (36.0-48.0); Immature Granulocytes Abs Auto 0.94 10^3/uL (0.00-0.03); Immature Granulocytes Pct Auto 6.1 % (0.0-0.5); Lymphocytes Absolute Auto 0.5 10^3/uL (1.2-3.8); Lymphocytes Percent Auto 3.5 % (20.5-60.0); Mean Corpuscular HGB Conc 31.8 g/dL (29.9-35.2); Mean Corpuscular Hemoglobin 27.8 pg (26.7-34.0); Mean Corpuscular Volume 87.6 fL (81.0-99.0); Mean Platelet Volume 9.5 fL (9.5-13.5); Monocytes Absolute Auto 0.7 10^3/uL (0.3-0.8); Monocytes Percent Auto 4.5 % (1.7-12.0); Neutrophils Absolute Auto 13.3 10^3/uL (1.4-6.5); Neutrophils Percent Auto 85.4 % (43.0-75.0); Platelet Count 436 10^3/uL (150-450); Red Blood Count 3.95 10^6/uL (4.20-5.40); Red Cell Distribution Width 14.6 % (11.0-15.0); White Blood Count 15.5 10^3/uL (4.0-11.0)
[2024-12-15] MEDS: PREGABALIN 100 MG CAPSULE PO ×2 (05:43→13:52)
[2024-12-15] MEDS: GABAPENTIN 300 MG CAPSULE PO ×2 (05:43→13:52)
[2024-12-15 05:47] LABS: Anion Gap 14.4; BUN Creatinine Ratio 32.4; Calcium 9.3 mg/dL (8.5-10.1); Carbon Dioxide 25.6 mmol/L (21.0-32.0); Chloride 102 mmol/L (98-107); Estimated GFR (African America >60 (>=60 mL/min/1.73m^2); Estimated GFR (Non-African Ame 52 (>=60 mL/min/1.73m^2); Glucose 266 mg/dL (74-106); Sodium 137 mmol/L (136-145)
[2024-12-15 05:53] LABS: Magnesium 2.3 mg/dL (1.8-2.4)
[2024-12-15] MEDS: IPRATROPIUM/ALBUTEROL SULFATE 3 ML AMPUL.NEB IH ×3 (07:30→15:57)
[2024-12-15 07:57] LABS: Glucometer 244 mg/dL (74-106)
--- NOTE | 2024-12-15 08:02 | PM.DS1 ---
DS: Providers Provider Date of admission: 12/10/24 17:47 Primary care physician: Erasto Henry MD Attending physician on admission: Gt Wyatt Consults: 12/10/24 Consult to Dietitian Routine Reason for consultation: weight loss Has provider been notified: No 12/10/24 17:54 Consult to Pharmacy Routine Consulting Provider: Reason for consultation: Please [place] me when Med Rec is Updated Has provider been notified: No Occupational Therapy Eval and Treat Routine Reason for consultation: Only if needed for Rehab Has provider been notified: No Physical Therapy Eval and Treat Routine Reason for consultation: Eval and Treat Has provider been notified: No 12/11/24 05:33 Consult to Pulmonology Routine Consulting Provider: Fish Mora Reason for consultation: Prog pneumonia Has provider been notified: No Discharging clinician: Jazmine Jung DS: Diagnosis Discharge Diagnosis (1) Right lower lobe pneumonia: Qualifiers: Pneumonia type: due to unspecified organism Qualified Code(s): J18.9 - Pneumonia, unspecified organism (2) Sepsis: Qualifiers: Acute respiratory failure type: with hypoxia Sepsis acute organ dysfunction status: with acute organ dysfunction Sepsis type: sepsis due to unspecified organism Severe sepsis acute organ dysfunction type: acute respiratory failure Severe sepsis shock status: without septic shock Qualified Code(s): A41.9 - Sepsis, unspecified organism; R65.20 - Severe sepsis without septic shock; J96.01 - Acute respiratory failure with hypoxia (3) Hypoxemia: (4) Urinary tract infection: Qualifiers: Hematuria presence: without hematuria Urinary tract infection type: acute cystitis Qualified Code(s): N30.00 - Acute cystitis without hematuria (5) COPD exacerbation: (6) Left lumbar radiculopathy: (7) Hypomagnesemia: (8) Chronic respiratory failure with hypoxia: (9) CAD (coronary artery disease): Qualifiers: Associated angina: without angina Coronary Disease-Associated Artery/Lesion type: [place] artery [place] vs. transplanted heart: [place] heart Qualified Code(s): I25.10 - Atherosclerotic heart disease of [place] coronary artery without angina pectoris (10) Essential hypertension: (11) Type 2 diabetes mellitus with hyperglycemia: Qualifiers: Diabetes mellitus correction insulin use: without correction use Qualified Code(s): E11.65 - Type 2 diabetes mellitus with hyperglycemia DS: Summary Hospital Course Hospital Course: This is a 69-year-old female patient with a past medical history of COPD with chronic respiratory failure on home O2 of 2 L at night only, depression, DM type II, CAD, and GERD; who presented to the ED on 12/10/24 increasing cough, found to have fever, tachycardia, respiratory distress secondary to right lower lobe pneumonia. Patient also had sepsis. She was started on IV Rocephin, Levaquin and IV solumedrol. She was requiring continuous 2L [place] oxygen. She is currently down to 1L. Her blood, urine, sputum cultures have been negative so far, but final cultures pending at the time of discharge. WBC's improving. I will place patient on oral prednisone 40mg daily x 7 days and Oral Levaquin 750mg q48 hours for 3 more doses. Her Blood sugars have been elevated due to steroids and they can continue SSI while at the nursing facility. She should continue daily ensure shakes. Continue nebs and inhalers. She plans to go to the [facility] for inpatient rehab. She will need to follow up with PCP and distance learning coordinator once d/c from facility. Status at Discharge Functional status at discharge: uses cane/walker Overall status at discharge: patient is progressing back to baseline Time Spent with Patient Time attestation: Total time spent providing and/or coordinating discharge services: Time spent: greater than 30 minutes Exam Narrative Exam Narrative: General: Patient is alert, and oriented to person, place and time with normal affect, proper hygiene Skin: pallor Head: atraumatic, acephalic Eyes: PERRLA, no nystagmus present, conjunctiva clear, no scleral icterus Ears: normal gross auditory acuity Heart: Normal rate and rhythm, no murmurs/rubs/gallops Lungs: audible wheezes, crackles and diminished breath sounds bases Abdomen: Normal audible bowel sounds, no distension, No palpable masses, no organomegaly, no rebound/guarding/ or rigidity Neuro: CN II-X grossly intact Constitutional Vital Signs, click to edit/add: Last Vital Signs Temp 97.5 F L 12/15/24 05:46 Pulse 93 H 12/15/24 07:34 Resp 16 12/15/24 05:46 BP 165/87 H 12/15/24 05:46 Pulse Ox 95 12/15/24 07:34 O2 Del Method Nasal Cannula 12/15/24 07:34 O2 Flow Rate 1 12/15/24 07:34 DS: Data Data Completed and Pending Labs on day of discharge: Labs from last 24 hours 12/15/24 12/15/24 12/14/24 07:54 05:08 21:37 WBC 15.5 H RBC 3.95 L Hgb 11.0 L Hct 34.6 L MCV 87.6 MCH 27.8 MCHC 31.8 RDW 14.6 Plt Count 436 MPV 9.5 Neut % (Auto) 85.4 H Lymph % (Auto) 3.5 L [place] % (Auto) 4.5 Eos % (Auto) 0.0 L Baso % (Auto) 0.5 Neut # (Auto) 13.3 H Lymph # (Auto) 0.5 L [place] # (Auto) 0.7 Eos # (Auto) 0.0 Baso # (Auto) 0.1 Abs Immat Gran (auto) 0.94 H Imm/Tot Granulo (auto) 6.1 H Sodium 137 Potassium 5.0 Chloride 102 Carbon Dioxide 25.6 Anion Gap 14.4 BUN 34.0 H Creatinine 1.05 H Est GFR ( Amer) >60 Est GFR (Non-Af Amer) 52 L BUN/Creatinine Ratio 32.4 Glucose 266 H Calcium 9.3 Magnesium 2.3 POC Glucose 244 H 204 H 12/14/24 12/14/24 16:47 11:57 WBC RBC Hgb Hct MCV MCH MCHC RDW Plt Count MPV Neut % (Auto) Lymph % (Auto) [place] % (Auto) Eos % (Auto) Baso % (Auto) Neut # (Auto) Lymph # (Auto) [place] # (Auto) Eos # (Auto) Baso # (Auto) Abs Immat Gran (auto) Imm/Tot Granulo (auto) Sodium Potassium Chloride Carbon Dioxide Anion Gap BUN Creatinine Est GFR ( Amer) Est GFR (Non-Af Amer) BUN/Creatinine Ratio Glucose Calcium Magnesium POC Glucose 182 H 210 H Preliminary micro results at discharge 12/10/24 14:55 Aerobic Susc Result 2 - Preliminary Blood Staphylococcus epidermidis 12/10/24 17:01 Lower Respiratory Culture - Preliminary Sputum - Expectorated Sputum 12/10/24 15:27 Blood Culture Result 2 - Preliminary Blood NO GROWTH AT 36-48 HOURS. FINAL TO FOLLOW. 12/10/24 15:20 Blood Culture Result 1 - Preliminary Blood 12/10/24 15:00 Urine Culture - Preliminary Urine Catheterized Pending - Specimen sent to [facility] Discharge Plan Discharge Disposition: Xfer SNF Condition: Fair Discharge Medications: New prednisone 20 mg Tablet 40 mg PO QD 7 Days Qty: 14 0RF levofloxacin 750 mg Tablet 750 mg PO Q48H Qty: 3 0RF Ensure Original 0.04-1.05 gram-kcal/mL Liquid 1 ea PO BID Qty: 0 0RF Continued guaifenesin 600 mg tablet extended release 12hr 1,200 mg PO Q12H atorvastatin 40 mg tablet 40 mg PO .QHS oxycodone-acetaminophen 5-325 mg tablet 1 tab PO QID PRN (Reason: moderate to severe pain) Qty: 4 0RF gabapentin 300 mg capsule 300 mg PO Q8H Qty: 3 0RF pregabalin [Lyrica] 100 mg capsule 100 mg PO TID Qty: 3 0RF albuterol sulfate 90 mcg/actuation HFA aerosol inhaler 2 puff INHALATION Q4H PRN (Reason: shortness of breath or wheezing) Stiolto Respimat 2.5-2.5 mcg/actuation mist 2 puff INHALATION DAILY Print Language: [place] Forms: Portal Instructions Discharge location: To [facility]
[2024-12-15] MEDS: DOCUSATE SODIUM 100 MG CAPSULE 200 MG PO (09:55)
[2024-12-15] MEDS: POLYETHYLENE GLYCOL 3350 17 GM POWDER PACKET PO (09:55)
[2024-12-15] MEDS: ENSURE ORIGINAL 237 ML BOTTLE PO (09:56)
[2024-12-15] MEDS: GUAIFENESIN 600 MG TAB.ER.12H 1200 MG PO (09:56)
[2024-12-15] MEDS: MAGNESIUM OXIDE 400 MG TABLET PO (09:56)
[2024-12-15] MEDS: PANTOPRAZOLE SODIUM 40 MG TABLET.DR PO (09:56)
[2024-12-15] MEDS: OXYCODONE HCL/ACETAMINOPHEN 5MG/325MG 1 TAB PO ×2 (09:58→16:23)
--- NOTE | 2024-12-15 10:00 | CM.NOTE ---
Rounds made with Dr. Jung, pt will discharge for skilled therapy when medically stable.
[2024-12-15] MEDS: SODIUM CHLORIDE 3% INHALATION 15 ML NEB 3 ML IH (11:14)
[2024-12-15 11:15] LABS: Glucometer 225 mg/dL (74-106)
--- NOTE | 2024-12-15 11:41 | CM.DCFOLLOWU ---
Person spoke with: How are you feeling? How is your pain? Did you understand your discharge instructions? Do you have any questions about your discharge instructions? Were you given any prescriptions at discharge? Were you able to get your prescriptions filled? Do you understand how to take your medications as ordered? Do you have any questions about your follow up appointment and do you plan to keep your follow up appointment? Is there anything else that you would like to discuss? Questions/Comments/Concerns/Other:
--- NOTE | 2024-12-15 11:44 | PT.DAILY ---
Physical Therapy Daily Note PT Daily Note/Assess Start: 12/12/24 11:02 Freq: Status: Active Protocol: Document 12/15/24 11:29 [id number] (Rec: 12/15/24 11:44 [id number]) Physical Therapy Daily Note/Assessment Time In/Time Out Time In 10:53 Time Out 11:04 Pain In Pain Level 8 Pain Out Pain Level 9 Subjective Subjective Patient received seated on BSC. Requests assistance for return to bed. Verbalizes L LE pain at 8/10 but is agreeable to participate with PT. States the L leg is really weak and gives out, not sure if she will be able to walk around the bed. States she has gotten so weak she can not even use the level on the chair to prop her legs up. Therapeutic Exercise Time Therapeutic Exercise 3 Minutes (minutes) Therapeutic Exercise 0 Units Therapeutic Exercise Treatment Therapeutic Exercise Patient performed DUSTY LE ther ex for strengthening Treatment while seated in chair at bedside. R LE AROM ankle pumps, quad set, SLR and hip ABD/ADD x 10 reps. L LE AAROM for ankle pumps, SLR and hip ABD/ADD x 7 reps. Patient verbalizes significant L LE pain with palpation during reps to 9/10 and is not able to tolerate additional reps. Therapeutic Activity Time Therapeutic Activity 8 Minutes (minutes) Therapeutic Activity 1 Units Therapeutic Activity Treatment Chair Transfer Contact Guard Assist,Minimum Assist Ability Therapeutic Activity Transfer BSC with R side pivot transfer to EOB CGA to Comments MIN A +1. Patient sits EOB with 1 UE support with significant slouching. Able to correct posture with verbal cues and immediately returns to slouched posture . Transfer: EOB to 2WW CGA to MIN A +1. Verbal cues for safe hand placement on bed to push up. Patient ambulated ~15 feet around bed to bedside chair with 2WW and CGA +1. Patient seated on bedside chair where she completed limited DUSTY LE ther ex. Patient requires verbal cues for safe hand placement while transferring from stand to sit. Patient is able to position herself in the chair without assist. CBWR and all needs met. Nursing notified of patient placement and acknowledged information. Total Physical Therapy Time Total Therapy 11 Minutes Total Physical 1 Therapy Units Summary Daily Note Summary During gait it is noted no L knee buckling, however shaking to L LE as distance progresses. Decreased L LE step length and height during ambulation. Patient demonstrates decreased safety awareness during transfers. L LE Pain and weakness limit patient progression with ambulation distance. Patient would benefit from skilled care upon D/C to address functional deficits for return to PLOF.
[2024-12-15] MEDS: INSULIN ASPART 300 UNIT/3 ML PEN SUBQ (11:50)
--- NOTE | 2024-12-15 11:52 | CM.NOTE ---
2nd Important Message From Medicare discussed with pt, pt denies questions or concerns.
--- NOTE | 2024-12-15 11:53 | SWNOTE1 ---
MARLENE sent PT note from Sunday and today, labs, vitals, and physician note from today to Marti at [facility].
[2024-12-15] MEDS: LEVOFLOXACIN 750 MG TABLET PO (13:52)
[2024-12-15] MEDS: PREDNISONE 20 MG TABLET 40 MG PO (13:52)
--- NOTE | 2024-12-16 08:27 | SWNOTE1 ---
MARLENE received a call yesterday evening from Marti at [facility] and pt was approved to go skilled to [facility]. MARLENE let nursing know. Nursing spoke to and he will transport. Marti from [facility] will complete PASR/HENS. Nursing to send discharge orders over as well. Pt is going to [facility] skilled.
--- NOTE | 2024-12-16 08:28 | SWNOTE1 ---
MARLENE received message from Marti at [facility] and she needs urine culture results and UA. MARLENE faxed over for continuity of care.
[2024-12-17 18:16] LABS: mecA/C NOT DETECTED (NOT DETECTE)
== END 2024-12-15 17:44 | DRG 871 ==
LOC: ER 16:09 → MS 17:53
PROVIDERS: Family Medicine; Admitting Provider Family Medicine; Emergency Provider Emergency Medicine; PCP Family Medicine; Visit Provider Family Medicine
DX: A41.9 Sepsis, unspecified organism (principal); J18.9 Pneumonia, unspecified organism; J96.21 Acute and chronic respiratory failure with hypoxia; R64 Cachexia; Z68.1 Body mass index [BMI] 19.9 or less, adult; E87.1 Hypo-osmolality and hyponatremia; N30.00 Acute cystitis without hematuria; M51.16 Intervertebral disc disorders with radiculopathy, lumbar region; J43.8 Other emphysema; I25.10 Atherosclerotic heart disease of native coronary artery without angina pectoris; E78.00 Pure hypercholesterolemia, unspecified; Z90.2 Acquired absence of lung [part of]; E83.52 Hypercalcemia; E83.42 Hypomagnesemia; T50.905A Adverse effect of unspecified drugs, medicaments and biological substances, initial encounter; R07.81 Pleurodynia; D75.839 Thrombocytosis, unspecified; R65.20 Severe sepsis without septic shock; E11.65 Type 2 diabetes mellitus with hyperglycemia; F32.A Depression, unspecified; I25.2 Old myocardial infarction; K21.9 Gastro-esophageal reflux disease without esophagitis; Z79.899 Other long term (current) drug therapy; I10 Essential (primary) hypertension; Z87.891 Personal history of nicotine dependence; Z87.440 Personal history of urinary (tract) infections; Z87.01 Personal history of pneumonia (recurrent); Z95.5 Presence of coronary angioplasty implant and graft
CPT/HCPCS: 36415; 71045; 71101; 73562; 80048; 80076; 81001; 82948; 83605; 83735; 83880; 84484; 85007; 85025; 85027; 87040; 87070; 87086; 87150; 87186; 87205; 87420; 87804; 87811; 89220; 93005; 94640; 94667; 94668; 94761; 96365; 97110; 97161; 97165; 97530; 99285; G0328; J0696; J2919; J7512

== ENCOUNTER 2024-12-28 11:26 | Emergency (ER) | payer OTHER, MEDICARE, SELFPAY ==
--- OUTSIDE RECORDS SUMMARY | 2024-12-23 06:30 | XMS_ITS ---
Author Organization The [facility] in [place] Address [address] [place] [address] Care Team Providers Care Pet Training Instructor Name Role Phone Erasto Henry MD Primary Care Provider Unavailab mariscal Fish Mora Unavailable [phone] REASON FOR VISIT Appointment Encounters Encounter Location Date Provider Diagnosis Pulmonary Medicine [address] [address] 12/23/2024 Fishjami Mora Plan Of Treatment Next Appt Details Provider Name:Fish Mora, 01/01/2025 08:00:00 AM, [address] [place] [address], [phone], Provider Name:Fish Mora, 05/06/2025 02:00:00 PM, [address] [place] [address], [phone], Progress Notes * Lise CANALES MDOB:[birth year] (69 yo F)Acc No.[id number]:12/23/2024 Patient: Lise NATH :1955 A ge:69 Y S ex:Female Address:[address] [place] [id number] * true * Date: Generated for Printi ng/Faxing/eTransmitting on: 0 12/28/2024 11:41 AM EDT
--- OUTSIDE RECORDS SUMMARY | 2024-12-23 12:49 | XMS_ITS ---
Author Organization The [facility] in [place] Address [address] [place] [address] Care Team Providers Care Stair Builder Name Role Phone Erasto Henry MD Primary Care Provider Unavailab mariscal Fish Mora Unavailable [phone] REASON FOR VISIT Appointment Encounters Encounter Location Date Provider Diagnosis Pulmonary Medicine [address] [address] 12/23/2024 Fishjami Mora Plan Of Treatment Next Appt Details Provider Name:Fish Mora, 01/01/2025 08:00:00 AM, [address] [place] [address], [phone], Provider Name:Fish Mora, 05/06/2025 02:00:00 PM, [address] [place] [address], [phone], Progress Notes * Lise CANALES MDOB:[birth year] (69 yo F)Acc No.[id number]:12/23/2024 Patient: Lise NATH :1955 A ge:69 Y S ex:Female Address:[address] [place] [phone] * true * Date: Generated for Printi ng/Faxing/eTransmitting on: 0 12/28/2024 11:40 AM EDT
--- OUTSIDE RECORDS SUMMARY | 2024-12-24 08:24 | XMS_ITS ---
Author Organization [facility] [place] Address [address] [place] [address] Care Team Providers Care Chief Gauger Name Role Phone Erasto Henry MD Primary Care Provider Unavailab Fish Jain Unavailable [phone] REASON FOR VISIT Questions Encounters Encounter Location Date Provider Diagnosis Pulmonary Medicine [address] [address] 12/24/2024 Fishjami Mora Plan Of Treatment Next Appt Details Provider Name:Fish Mora, 01/01/2025 08:00:00 AM, [address] [place] [address], [phone], Provider Name:Fish Mora, 05/06/2025 02:00:00 PM, [address] [place] [address], [phone], Progress Notes * Lise CANALES MDOB:[birth year] (69 yo F)Acc No.[id number]:12/24/2024 Patient: Lise NATH :1955 A ge:69 Y S ex:Female Address:[address] [place] [phone] * true * Date: Generated for Printi ng/Faxing/eTransmitting on: 0 12/28/2024 11:40 AM EDT
[2024-12-28] VITALS (39 sets, daily range): BP systolic 94–167; BP diastolic 57–110; PULSE 96–125; RESP 20; TEMP 36.2; O2SAT 84–100; BMI 19.1
--- NOTE | 2024-12-28 11:31 | ECG_ITS ---
[facility] Test Date: 2024-12-28 Pat Name: SANDRA CANALES Department: Room: - Gender: Female Care Partner: : 1955 Requested By: [id number] Order Number: [id number] Reading MD: JER VANG M.D. Measurements Intervals [place] Rate: 123 P: 69 NH: 136 QRS: 81 QRSD: 90 T: 78 QT: 314 QTc: 387 Interpretive Statements 1120 Sinus tachycardia with premature ventricular complexes 2420 RSR (QR) in lead V1/V2, consistent with right ventricular conduction delay 7300 Indeterminate axis 9140 abnormal rhythm ECG Compared to ECG 12/10/2024 14:29:27 Indeterminate axis now present ST (T wave) deviation no longer present Right-axis deviation no longer present Electronically Signed On 12-28-2024 22:09:38 EDT by JER VANG M.D.
--- OUTSIDE RECORDS SUMMARY | 2024-12-28 11:41 | XMS_ITS | Patient Health Record ---
Author Organization The [facility] in [place] Address [address] [place] [address] Care Team Providers Care Glass Forming Crew Member Name Role Phone Erasto Henry MD Primary Care Provider Jasper mariscal Ishan Quezada Unavailable [phone] Allergies Allergen (clinical drug ingredient) Drug/Non Drug Allergy documented on EMR Reaction Allergy Type Onset Date Status azithromycin Azithromycin Hives Drug Allergy A ctive Latex Latex Hives Allergy Active Results Component Value Reference Range Notes Troponin I High Sensitivity Reviewed date:12/10/2024 09:21:10 PM Interpretation: Performing Lab: Notes/Report: [facility] , Troponin I High Sensitivity 11.2 4.0-51.3 pg/mL USED IN ISOLATION BUT SHOULD BE INTERPRETED IN CONJUNCTION CUT-OFF POINTS HAVE BEEN ESTABLISHED BASED ON THE FOURTH PERCENTILE OF cTnI DISTRIBUTION IN A REFERENCE POPULATION, WITH OTHER DIAGNOSTIC AND CLINICAL INFORMATION. HAS BEEN CONFIRMED THE DECISION THRESHOLD FOR [place] UNIVERSAL DEFINITION OF MYOCARDIAL INFARCTION. THE UPPER 99TH PERCENTILE = 51.4 PG/ML NOTE: HIGH-SENSITIVITY TROPONIN ASSAY IS NOT INTENDED TO BE DIAGNOSIS. REFERENCE LIMIT (URL) OF TROPONIN, DEFINED THE 99TH Performing Lab: see note ML - [facility] LB MAGNESIUM Reviewed date:12/13/2024 05:04:13 PM Interpretation: Performing Lab: Notes/Report: [facility] , Magnesium 2.0 1.8-2.4 mg/dL Performing Lab: see note ML - [facility] LB MAGNESIUM Reviewed date:12/14/2024 01:35:55 PM Interpretation: Performing Lab: Notes/Report: [facility] , Magnesium 2.2 1.8-2.4 mg/dL Performing Lab: see note ML - [facility] LB PROF CHEM 8 (BAS METB) Reviewed date:12/14/2024 01:35:55 PM Interpretation: Performing Lab: Notes/Report: [facility] , Sodium 140 136-145 mmol/L Potassium 4.7 3.5-5.1 mmol/L Chloride 104 98-107 mmol/L Carbon Dioxide 26.2 21.0-32.0 mmol/L Anion Gap 14.5 Glucose 195 74-106 mg/dL Blood Urea Nitrogen 34.0 7.0-18.0 mg/dL Creatinine 1.03 0.55-1.02 mg/dL Estimated GFR ( Mile >60 >=60 mL/min/1.73m 2 Estimated GFR (Non- Hollie 53 >=60 mL/min/1.73m 2 BUN Creatinine Ratio 33.0 Calcium 9.2 8.5-10.1 mg/dL Performing Lab: see note ML - [facility] LB MAGNESIUM Reviewed date:12/15/2024 08:54:23 PM Interpretation: Performing Lab: Notes/Report: [facility] , Magnesium 2.3 1.8-2.4 mg/dL Performing Lab: see note ML - [facility] LB PROF CHEM 8 ([employer] METB) Reviewed date:12/15/2024 08:54:23 PM Interpretation: Performing Lab: Notes/Report: [facility] , Sodium 137 136-145 mmol/L Potassium 5.0 3.5-5.1 mmol/L Chloride 102 98-107 mmol/L Carbon Dioxide 25.6 21.0-32.0 mmol/L Anion Gap 14.4 Glucose 266 74-106 mg/dL Blood Urea Nitrogen 34.0 7.0-18.0 mg/dL Creatinine 1.05 0.55-1.02 mg/dL Estimated GFR ( Mile >60 >=60 mL/min/1.73m 2 Estimated GFR (Non- Hollie 52 >=60 mL/min/1.73m 2 BUN Creatinine Ratio 32.4 Calcium 9.3 8.5-10.1 mg/dL Performing Lab: see note ML - [facility] LB CBC AUTO DIFF Reviewed date:12/15/2024 08:54:23 PM Interpretation: Performing Lab: Notes/Report: [facility] , White Blood Count 15.5 4.0-11.0 10 3/uL Red Blood Count 3.95 4.20-5.40 10 6/uL Hemoglobin 11.0 12.0-16.0 g/dL Hematocrit 34.6 36.0-48.0 % Mean Corpuscular Volume 87.6 81.0-99.0 fL Mean Corpuscular Hemoglobin 27.8 26.7-34.0 pg Mean Corpuscular HGB Conc 31.8 29.9-35.2 g/dL Red Cell Distribution Width 14.6 11.0-15.0 % Platelet Count 436 150-450 10 3/uL Mean Platelet Volume 9.5 9.5-13.5 fL Neutrophils Percent Auto 85.4 43.0-75.0 % Lymphocytes Percent Auto 3.5 20.5-60.0 % Monocytes Percent Auto 4.5 1.7-12.0 % Eosinophils Percent Auto 0.0 0.9-7.0 % Basophils Percent Auto 0.5 0.2-2.0 % Immature Granulocytes Pct Auto 6.1 0.0-0.5 % Neutrophils Absolute Auto 13.3 1.4-6.5 10 3/uL Lymphocytes Absolute Auto 0.5 1.2-3.8 10 3/uL Monocytes Absolute Auto 0.7 0.3-0.8 10 3/uL Eosinophils Absolute Auto 0.0 0.0-0.7 10 3/uL Basophils Absolute Auto 0.1 0.0-0.1 10 3/uL Immature Granulocytes Abs Auto 0.94 0.00-0.03 10 3/uL Performing Lab: see note ML - [facility] LB CBC AUTO DIFF Reviewed date:12/14/2024 01:35:55 PM Interpretation: Performing Lab: Notes/Report: [facility] , White Blood Count 18.1 4.0-11.0 10 3/uL Red Blood Count 3.71 4.20-5.40 10 6/uL Hemoglobin 10.7 12.0-16.0 g/dL Hematocrit 32.4 36.0-48.0 % Mean Corpuscular Volume 87.3 81.0-99.0 fL Mean Corpuscular Hemoglobin 28.8 26.7-34.0 pg Mean Corpuscular HGB Conc 33.0 29.9-35.2 g/dL Red Cell Distribution Width 14.6 11.0-15.0 % Platelet Count 460 150-450 10 3/uL Mean Platelet Volume 9.2 9.5-13.5 fL Neutrophils Percent Auto 91.9 43.0-75.0 % Lymphocytes Percent Auto 2.1 20.5-60.0 % Monocytes Percent Auto 3.3 1.7-12.0 % Eosinophils Percent Auto 0.7 0.9-7.0 % Basophils Percent Auto 0.2 0.2-2.0 % Immature Granulocytes Pct Auto 1.8 0.0-0.5 % Neutrophils Absolute Auto 16.7 1.4-6.5 10 3/uL Lymphocytes Absolute Auto 0.4 1.2-3.8 10 3/uL Monocytes Absolute Auto 0.6 0.3-0.8 10 3/uL Eosinophils Absolute Auto 0.1 0.0-0.7 10 3/uL Basophils Absolute Auto 0.0 0.0-0.1 10 3/uL Immature Granulocytes Abs Auto 0.33 0.00-0.03 10 3/uL Performing Lab: see note - [facility] LB PROF CHEM 8 (BAS METB) Reviewed date:12/13/2024 05:04:13 PM Interpretation: Performing Lab: Notes/Report: [facility] , Sodium 137 136-145 mmol/L Potassium 4.0 3.5-5.1 mmol/L Chloride 101 98-107 mmol/L Carbon Dioxide 24.6 21.0-32.0 mmol/L Anion Gap 15.4 Glucose 241 74-106 mg/dL Blood Urea Nitrogen 32.0 7.0-18.0 mg/dL Creatinine 1.26 0.55-1.02 mg/dL Estimated GFR ( Mile 51 >=60 mL/min/1.73m 2 Estimated GFR (Non- Hollie 42 >=60 mL/min/1.73m 2 BUN Creatinine Ratio 25.4 Calcium 9.8 8.5-10.1 mg/dL Performing Lab: see note - [facility] LB CBC AUTO DIFF Reviewed date:12/13/2024 05:04:13 PM Interpretation: Performing Lab: Notes/Report: [facility] , White Blood Count 23.3 4.0-11.0 10 3/uL Red Blood Count 3.74 4.20-5.40 10 6/uL Hemoglobin 10.8 12.0-16.0 g/dL Hematocrit 32.5 36.0-48.0 % Mean Corpuscular Volume 86.9 81.0-99.0 fL Mean Corpuscular Hemoglobin 28.9 26.7-34.0 pg Mean Corpuscular HGB Conc 33.2 29.9-35.2 g/dL Red Cell Distribution Width 14.6 11.0-15.0 % Platelet Count 503 150-450 10 3/uL Mean Platelet Volume 9.5 9.5-13.5 fL Neutrophils Percent Auto 95.5 43.0-75.0 % Lymphocytes Percent Auto 1.2 20.5-60.0 % Monocytes Percent Auto 2.0 1.7-12.0 % Eosinophils Percent Auto 0.0 0.9-7.0 % Basophils Percent Auto 0.1 0.2-2.0 % Immature Granulocytes Pct Auto 1.2 0.0-0.5 % Neutrophils Absolute Auto 22.3 1.4-6.5 10 3/uL Lymphocytes Absolute Auto 0.3 1.2-3.8 10 3/uL Monocytes Absolute Auto 0.5 0.3-0.8 10 3/uL Eosinophils Absolute Auto 0.0 0.0-0.7 10 3/uL Basophils Absolute Auto 0.0 0.0-0.1 10 3/uL Immature Granulocytes Abs Auto 0.27 0.00-0.03 10 3/uL Performing Lab: see note ML - [facility] LB Manual Differential Reviewed date:12/13/2024 05:04:13 PM Interpretation: Performing Lab: Notes/Report: [facility] , Segmented Neutrophils % Manual 96.0 43.0-75.0 Lymphocytes Percent Manual 3.0 20.5-60.0 % Monocytes Percent Manual 1.0 1.7-12.0 % Eosinophils Percent Manual 0.0 0.9-7.0 % Basophils Percent Manual 0.0 0.2-2.0 % Segmented Neut Absolute Manual 24.48 1.4-6.5 10 3/uL Lymphocytes Absolute Manual 0.76 1.20-3.80 10 3/uL Monocytes Absolute Manual 0.25 0.30-0.80 10 3/ uL Eosinophils Absolute Manual 0.00 0.00-0.70 10 3/uL Basophils Abs Manual 0.00 0.00-0.10 10 3/uL Performing Lab: see note - [facility] LB PROF CHEM 8 (BAS METB) Reviewed date:12/13/2024 05:04:13 PM Interpretation: Performing Lab: Notes/Report: [facility] , Sodium 136 136-145 mmol/L Potassium 3.6 3.5-5.1 mmol/L Chloride 100 98-107 mmol/L Carbon Dioxide 23.9 21.0-32.0 mmol/L Anion Gap 15.7 Glucose 211 74-106 mg/dL Blood Urea Nitrogen 30.0 7.0-18.0 mg/dL Creatinine 1.10 0.55-1.02 mg/dL Estimated GFR ( Mile 60 >=60 mL/min/1.73m 2 Estimated GFR (Non- Hollie 50 >=60 mL/min/1.73m 2 BUN Creatinine Ratio 27.3 Calcium 10.3 8.5-10.1 mg/dL Performing Lab: see note ML - [facility] LB MAGNESIUM Reviewed date:12/13/2024 05:04:13 PM Interpretation: Performing Lab: Notes/Report: [facility] , Magnesium 1.9 1.8-2.4 mg/dL Performing Lab: see note - [facility] LB CBC AUTO DIFF Reviewed date:12/13/2024 05:04:13 PM Interpretation: Performing Lab: Notes/Report: [facility] , White Blood Count 25.5 4.0-11.0 10 3/uL Red Blood Count 3.72 4.20-5.40 10 6/uL Hemoglobin 10.9 12.0-16.0 g/dL Hematocrit 32.4 36.0-48.0 % Mean Corpuscular Volume 87.1 81.0-99.0 fL Mean Corpuscular Hemoglobin 29.3 26.7-34.0 pg Mean Corpuscular HGB Conc 33.6 29.9-35.2 g/dL Red Cell Distribution Width 14.4 11.0-15.0 % Platelet Count 453 150-450 10 3/uL Mean Platelet Volume 10.1 9.5-13.5 fL Performing Lab: see note ML - [facility] LB XR ribs RT min 3V w CXR1V Reviewed date:12/11/2024 01:13:31 PM Interpretation: Performing Lab: Notes/Report: Source Facility: [facility]-[address] [place] [address] [place] [address] XRay Report Signed Patient: OMEGATLISE MR#: [id number] : 1955 Acct:[id number] Age/Sex: 69 / F ADM Date: 12/10/24 Loc: [place] 218-[address]: Anabel Wyatt M.D. Ordering Physician: Anabel Wyatt M.D. Date of Service: 12/11/24 Procedure(s): XR ribs RT min 3V w CXR1V Accession Number(s): [id number] cc: Anabel Wyatt M.D.; Erasto Henry M.D. The [place] [address] Patient Name: LISE CANALES MRN: [id number] date: 1955 Sex: F Assigned Patient Location: [place] Current Patient Location: [place] Accession/Order Number: [id number] Exam Date: 12/11/2024 11:05 Report Date: 12/11/2024 11:14 At the request of: ANABEL WYATT MD Procedure: XR ribs RT min 3V w CXR1V PA CHEST WITH ? RIBS: CLINICAL HISTORY: Right chest wall tenderness for the past couple days. No injury. COMPARISON: 12/10/2024 The chest film shows obstructive lung disease with continued apical scarring and postoperative changes. The infiltrative change seen at the right base on the comparison is slightly improved. There is no developing consolidation, sizable effusion or pneumothorax. The cardiac, hilar and mediastinal silhouettes are stable. AP and both oblique views of the right ribs show osteopenia. No definite acute displaced fractures or bony destruction. XR/XR ribs RT min 3V w CXR1V IMPRESSION: OBSTRUCTIVE LUNG DISEASE WITH SCARRING. SLIGHT INTERVAL IMPROVEMENT OF RIGHT BASILAR PARENCHYMAL CHANGE. NO ACUTE RIB FINDINGS. Impression dictated by: Allyn Contreras M.D. 12/11/2024 11:14 AM Dictation Location: [place] [address] Electronically authenticated by: [id number] Y Date: 12/11/2024 11:14 Dictated By: Allyn Contreras M.D. Signed By: 12/11/24 1116 DD/ 1114 TD/TT: Psychometrician: [place] [address] XRay Report Signed Patient: COVERTCOREY MR#: [id number] : 1955 Acct:[id number] Age/Sex: 69 / F ADM Date: 12/10/24 Loc: [place] 218-[address]: Rony Wyatt M.D. Ordering Physician: Anabel Wyatt M.D. Date of Service: 12/11/24 Procedure(s): XR rib s RT min 3V w CXR1V Accession Number(s): [id number] cc: Anabel Wyatt M.D. ; Erasto Henry M.D. The [place] [address] Patient Name: LISE Easton COVERT MRN: [id number] date: 1955 Sex: F Assigned Patient Location: [place] Current Patient Location: [place] Accession/Order Number: [id number] Exam Date: 12/11/2024 11:05 Report Date: 12/11/2024 11:14 At the request of: ANABEL WYATT MD Procedure: XR ribs R T min 3V w CXR1V PA CHEST WITH ? RIBS: CLINICAL HISTORY: Right chest wall tenderness for the past couple days. No injury. COMPARISON: 12/10/2024 The chest film shows obstructive lung disease with continued apical scarring and postoperative changes. The infiltrative change seen at the right base on the comparison is slightly improved. There is no developing consolidation, sizable effusion or pneumothorax. The cardiac, hilar and mediastinal silhouettes are stable. AP and both oblique views of the right ribs show osteopenia. No definite acute displaced fractures or bony destruction. XR/XR ribs RT min 3V w CXR1V IMPRESSION: OBSTRUCTIVE LUNG DISEASE WITH SCARRING. SLIGHT INTERVAL IMPROVEMENT OF RIGHT BASILAR PARENCHYMAL CHANGE. NO ACUTE RIB FINDINGS. Impression dictated by: Allyn Contreras M.D. 12/11/2024 11:14 AM Dictation Location: [place] [address] Electronically authenticated by: [id number] Y Date: 12/11/2024 11:14 Dictated By: Allyn Contreras M.D. Signed By: 12/11/24 1116 DD/ 1114 TD/TT: Psychometrician: PROF VIJAY Hinson ([facility]) Reviewed date:12/11/2024 01:13:31 PM Interpretation: Performing Lab: Notes/Report: [facility] , Sodium 138 136-145 mmol/L Potassium 3.5 3.5-5.1 mmol/L Chloride 100 98-107 mmol/L Carbon Dioxide 24.9 21.0-32.0 mmol/L Anion Gap 16.6 Glucose 282 74-106 mg/dL Blood Urea Nitrogen 18.0 7.0-18.0 mg/dL Creatinine 1.18 0.55-1.02 mg/dL Estimated GFR ( Mile 55 >=60 mL/min/1.73m 2 Estimated GFR (Non- Hollie 46 >=60 mL/min/1.73m 2 BUN Creatinine Ratio 15.3 Calcium 10.6 8.5-10.1 mg/dL Performing Lab: see note ML - [facility] LB CBC AUTO DIFF Reviewed date:12/11/2024 01:13:31 PM Interpretation: Performing Lab: Notes/Report: [facility] , White Blood Count 16.1 4.0-11.0 10 3/uL Red Blood Count 4.25 4.20-5.40 10 6/uL Hemoglobin 12.3 12.0-16.0 g/dL Hematocrit 37.4 36.0-48.0 % Mean Corpuscular Volume 88.0 81.0-99.0 fL Mean Corpuscular Hemoglobin 28.9 26.7-34.0 pg Mean Corpuscular HGB Conc 32.9 29.9-35.2 g/dL Red Cell Distribution Width 14.0 11.0-15.0 % Platelet Count 387 150-450 10 3/uL Mean Platelet Volume 9.6 9.5-13.5 fL Neutrophils Percent Auto 97.7 43.0-75.0 % Lymphocytes Percent Auto 0.9 20.5-60.0 % Monocytes Percent Auto 0.8 1.7-12.0 % Eosinophils Percent Auto 0.0 0.9-7.0 % Basophils Percent Auto 0.1 0.2-2.0 % Immature Granulocytes Pct Auto 0.5 0.0-0.5 % Neutrophils Absolute Auto 15.8 1.4-6.5 10 3/uL Lymphocytes Absolute Auto 0.1 1.2-3.8 10 3/uL Monocytes Absolute Auto 0.1 0.3-0.8 10 3/uL Eosinophils Absolute Auto 0.0 0.0-0.7 10 3/uL Basophils Absolute Auto 0.0 0.0-0.1 10 3/uL Immature Granulocytes Abs Auto 0.08 0.00-0.03 10 3/uL Performing Lab: see note - [facility] LB Lower Respiratory Culture Reviewed date:12/16/2024 04:30:06 PM Interpretation: Performing Lab: Notes/Report: [facility] , Lower Respiratory Culture See Below For Report Lower Respiratory Culture WILL FOLLOW Lower Respiratory Culture Routine respir atory melly Lower Respiratory Culture WILL FOLLOW Lower Respiratory Culture Performed at: - [facility] Lower Respiratory Culture WILL FOLLOW Lower Respiratory Culture [address] [facility], [place], [place] [id number] Lower Respiratory Culture WILL FOLLOW Lower Respiratory Culture Fixture Designer: Deejay Cortez PhD, Phone: [phone] Lower Respiratory Culture WILL FOLLOW Performing Lab: see note SEE REPORT - Supervising Architect Id information not found for OBX-specific digital media producer legend LC - [facility] LB Gram Stain Evaluation Reviewed date:12/16/2024 04:30:06 PM Interpretation: Performing Lab: Notes/Report: [facility] , Gram Stain Evaluation See Below For Report This specimen is of good quality and is acceptable for routine Gram Stain Evaluation Gram Stain Evaluation bacterial culture. This specimen is of good quality and is acceptable for routine Gram Stain Evaluation Performing Lab: see note LC - [facility] LB Result 4 Reviewed date:12/16/2024 04:30:06 PM Interpretation: Performing Lab: Notes/Report: [facility] , Result 4 See Below For Report Few gram positive cocci Result 4 Performing Lab: see note LC - [facility] LB Result 3 Reviewed date:12/16/2024 04:30:06 PM Interpretation: Performing Lab: Notes/Report: [facility] , Result 3 See Below For Report Few budding yeast present. Result 3 Performing Lab: see note LC - [facility] LB Result 2 Reviewed date:12/16/2024 04:30:06 PM Interpretation: Performing Lab: Notes/Report: [facility] , Result 2 See Below For Report Result 2 Few gram positive rods. Performing Lab: see note LC - [facility] LB Result 1 Reviewed date:12/16/2024 04:30:06 PM Interpretation: Performing Lab: Notes/Report: [facility] , Result 1 See Below For Report Few gram negative rods. Result 1 Performing Lab: see note LC - [facility] LB Epithelial Cells Reviewed date:12/16/2024 04:30:06 PM Interpretation: Performing Lab: Notes/Report: [facility] , Epithelial Cells See Below For Report Epithelial Cells Few Performing Lab: see note LC - [facility] LB White Blood Cells Reviewed date:12/16/2024 04:30:06 PM Interpretation: Performing Lab: Notes/Report: [facility] , White Blood Cells See Below For Report White Blood Cells White Blood Cells Many White Blood Cells Performing Lab: see note LC - [facility] LB Troponin I High Sensitivity Reviewed date:12/10/2024 09:09:56 PM Interpretation: Performing Lab: Notes/Report: [facility] , Troponin I High Sensitivity 11.8 4.0-51.3 pg/mL 99TH PERCENTILE = 51.4 PG/ML UNIVERSAL DEFINITION OF MYOCARDIAL INFARCTION. THE UPPER CUT-OFF POINTS HAVE BEEN ESTABLISHED BASED ON THE FOURTH DIAGNOSIS. HAS BEEN CONFIRMED THE DECISION THRESHOLD FOR [place] REFERENCE LIMIT (URL) OF TROPONIN, DEFINED THE 99TH WITH OTHER DIAGNOSTIC AND CLINICAL INFORMATION. USED IN ISOLATION BUT SHOULD BE INTERPRETED IN CONJUNCTION PERCENTILE OF cTnI DISTRIBUTION IN A REFERENCE POPULATION, NOTE: HIGH-SENSITIVITY TROPONIN ASSAY IS NOT INTENDED TO BE Performing Lab: see note ML - [facility] LB RSV Reviewed date:12/10/2024 09:09:56 PM Interpretation: Performing Lab: Notes/Report: [facility] , Respiratory Syncytial Virus Not Detected NOT DETECTE Performing Lab: see note ML - [facility] LB MAGNESIUM Reviewed date:12/10/2024 09:09:56 PM Interpretation: Performing Lab: Notes/Report: [facility] , Magnesium 1.5 1.8-2.4 mg/dL Performing Lab: see note ML - [facility] LB LIVER PROFILE Reviewed date:12/10/2024 09:09:56 PM Interpretation: Performing Lab: Notes/Report: [facility] , Bilirubin Total 0.4 0.2-1.0 mg/dL Bilirubin Direct 0.1 0.0-0.2 mg/dL Aspartate Amino Transferase 14 15-37 U/L Alanine Aminotransferase 8 14-59 U/L Alkaline Phosphatase 76 46-116 U/L Total Protein 5.8 6.4-8.2 g/dL Albumin Level 2.4 3.4-5.0 g/dL Globulin 3.4 Albumin Globulin Ratio 0.7 Performing Lab: see note ML - [facility] LB LACTATE or LACTIC ACID Reviewed date:12/10/2024 09:09:56 PM Interpretation: Performing Lab: Notes/Report: [facility] , Lactate/Lactic Acid 0.9 0.4-2.0 mmol/L Performing Lab: see note ML - [facility] LB INFLUENZA A AND B AG Reviewed date:12/10/2024 09:10:10 PM Interpretation: Performing Lab: Notes/Report: [facility] , Influenza Virus A Antigen Negative cannot be ruled out. Flu A antigen in the sample may be below the detection limit of the test. Negative for Flu A protein antigen. Infection due to Flu A Influenza Virus B Antigen Negative below the detection limit of the test. cannot be ruled out. Flu B antigen in the sample may be Negative for Flu B protein antigen. Infection due to Flu B Performing Lab: see note ML - [facility] LB CBC AUTO DIFF Reviewed date:12/10/2024 09:09:56 PM Interpretation: Performing Lab: Notes/Report: [facility] , White Blood Count 18.7 4.0-11.0 10 3/uL Red Blood Count 4.07 4.20-5.40 10 6/uL Hemoglobin 11.7 12.0-16.0 g/dL Hematocrit 35.3 36.0-48.0 % Mean Corpuscular Volume 86.7 81.0-99.0 fL Mean Corpuscular Hemoglobin 28.7 26.7-34.0 pg Mean Corpuscular HGB Conc 33.1 29.9-35.2 g/dL Red Cell Distribution Width 14.1 11.0-15.0 % Platelet Count 349 150-450 10 3/uL Mean Platelet Volume 8.8 9.5-13.5 fL Neutrophils Percent Auto 87.3 43.0-75.0 % Lymphocytes Percent Auto 4.1 20.5-60.0 % Monocytes Percent Auto 8.0 1.7-12.0 % Eosinophils Percent Auto 0.1 0.9-7.0 % Basophils Percent Auto 0.2 0.2-2.0 % Immature Granulocytes Pct Auto 0.3 0.0-0.5 % Neutrophils Absolute Auto 16.3 1.4-6.5 10 3/uL Lymphocytes Absolute Auto 0.8 1.2-3.8 10 3/uL Monocytes Absolute Auto 1.5 0.3-0.8 10 3/uL Eosinophils Absolute Auto 0.0 0.0-0.7 10 3/uL Basophils Absolute Auto 0.0 0.0-0.1 10 3/uL Immature Granulocytes Abs Auto 0.06 0.00-0.03 10 3/uL Performing Lab: see note ML - [facility] LB BNP Reviewed date:12/10/2024 09:09:56 PM Interpretation: Performing Lab: Notes/Report: [facility] , NT Pro B Type Natriuretic Pept 376.0 <=900.0 pg/mL Performing Lab: see note ML - [facility] LB PROF 14(COMP METB) Reviewed date:07/13/2024 05:11:02 PM Interpretation: Performing Lab: Notes/Report: [facility] , Sodium 139 136-145 mmol/L Potassium [...] 0.9 Performing Lab: see note ML - [facility] LB CBC AUTO DIFF Reviewed date:07/13/2024 05:11:02 PM Interpretation: Performing Lab: Notes/Report: [facility] , White Blood Count 12.9 4.0-11.0 [...] Performing Lab: see note ML - [facility] LB XR chest 2V Reviewed date:07/13/2024 05:11:02 PM Interpretation: Performing Lab: Notes/Report: Source Facility: [place] [address] [place] [address] XRay Report Signed Patient: LISE CANALES MR#: [id number] : 1955 Acct:[id number] Age/Sex: 69 / F ADM Date: 07/07/24 Loc: [place] 219-[address]: Anabel Wyatt M.D. Ordering Physician: Anabel Wyatt M.D. Date of Service: 07/10/24 Procedure(s): XR chest 2V Accession Number(s): [id number] cc: Anabel Wyatt M.D.; Erasto Henry M.D. [facility] [place] [address] Patient Name: LISE CANALES MRN: [id number] date: 1955 Sex: F Assigned Patient Location: [place] Current Patient Location: [place] Accession/Order Number: [id number] Exam Date: 07/10/2024 09:50 Report Date: 07/10/2024 10:27 At the request of: ANABEL WYATT Procedure: XR chest 2V EXAMINATION: XR chest [...] Signed By: 07/10/24 1030 DD/ 1027 TD/TT: Psychometrician: [place] [address] XRay Report Signed Patient: COREY CANALES MR#: [id number] : 1955 Acct:[id number] Age/Sex: 69 / F ADM Date: 07/07/24 Loc: [place] 219-[address]: Rony Wyatt M.D. Ordering Physician: Anabel Wyatt M.D. Date of Service: 07/10/24 Procedure(s): XR [facility] [facility] 2V Accession Number(s): [id number] cc: Anabel Wyatt M.D. ; Erasto Henry M.D. [place] [address] Patient Name: LISE Easton COVERT MRN: [id number] date: 1955 Sex: F Assigned Patient Location: [place] Current Patient Location: [place] Accession/Order Number: [id number] Exam Date: 07/10/2024 09:50 Report Date: 07/10/2024 10:27 At the request of: ANABEL WYATT Procedure: XR chest 2V EXAMINATION: XR ches t 2V HISTORY: pneumonia COMPARISON: , 07/07/2024 TECHNIQUE: Frontal FINDINGS: LUNGS: Stable hyperinflation. [...] Signed By: 07/10/24 1030 DD/ 1027 TD/TT: Psychometrician: Box Test Reviewed date:07/13/2024 05:11:02 PM Interpretation: Performing Lab: Notes/Report: URINE CULTURE [facility] , BOX Test Sent Out URINE CULTURE BOX Test Reference Lab [facility] BOX Test Date Sent 07/09/24 BOX Test Result SEE SCANNED REPORT Performing Lab: see note ML - [facility] LB Box Test Reviewed date:07/13/2024 05:11:02 PM Interpretation: Performing Lab: Notes/Report: Sputum Culture [facility] , BOX Test Sent Out Sputum Culture BOX Test Reference Lab [facility] BOX Test Date Sent 07/08/24 BOX Test Result SEE SCANNED REPORT Performing Lab: see note - [facility] LB PROF 14(COMP METB) Reviewed date:07/09/2024 03:17:04 PM Interpretation: Performing Lab: Notes/Report: [facility] , Sodium 137 136-145 mmol/L Potassium [...] 0.7 Performing Lab: see note ML - [facility] LB MAGNESIUM Reviewed date:07/09/2024 03:17:04 PM Interpretation: Performing Lab: Notes/Report: [facility] , Magnesium 2.2 1.8-2.4 mg/dL Performing Lab: see note ML - [facility] LB CBC AUTO DIFF Reviewed date:07/09/2024 03:17:04 PM Interpretation: Performing Lab: Notes/Report: [facility] , White Blood Count 14.3 4.0-11.0 [...] Performing Lab: see note ML - [facility] LB SARS-CoV-2 Ag* Reviewed date:07/07/2024 09:16:27 PM Interpretation: Performing Lab: Notes/Report: [facility] , SARS-CoV-2 Ag NEGATIVE NEGATIVE authorized for the duration of the declaration that complexity testing. This test has been authorized only for authorized by the FDA under an Emergency Use Authorization This test has not been FDA cleared or approved, but has been CLIA that meet the requirements to perform moderate or high terminated or authorization is revoked sooner. emergency use of in vitro diagnostic tests for detection circumstances exist justifying the authorization of (EUA) for use by authorized laboratories certified under viruses or pathogens. The emergency use of this test is Act, 21 U.S.C. 360bbb-3(b)(1), unless the declaration is the detection of proteins from SARS-CoV-2, not for any other and/or diagnosis of Covid-19 under section 564(b)(1) of the Performing Lab: see note ML - [facility] LB INFLUENZA A AND B AG Reviewed date:07/07/2024 09:16:27 PM Interpretation: Performing Lab: Notes/Report: [facility] , Influenza Virus A Antigen Negative Negative for Flu A protein antigen. Infection due to Flu A below the detection limit of the test. cannot be ruled out. Flu A antigen in the sample may be Influenza Virus B Antigen Negative Negative for Flu B protein antigen. Infection due to Flu B below the detection limit of the test. cannot be ruled out. Flu B antigen in the sample may be Performing Lab: see note ML - [facility] LB CT lung screening low-dose Reviewed date:02/26/2024 07:08:22 AM Interpretation: Performing Lab: Notes/Report: Source Facility: [place] [address] CT Scan Report Signed Patient: LISE CANALES MR#: [id number] : 1955 Acct:[id number] Age/Sex: 68 / F ADM Date: 02/19/24 Loc: CT Attending Dr: Ishan Quezada D.O. Ordering Physician: Ishan Quezada D.O. Date of Service: 02/19/24 Procedure(s): CT lung screening low-dose Accession Number(s): [id number] cc: Erasto Henry M.D. [place] [address] Patient Name: LISE CANALES MRN: [facility]:[id number] date: 1955 Sex: F Assigned Patient Location: CT Current Patient Location: ED.MAIN Accession/Order Number: [id number] Exam Date: 02/19/2024 13:15 Report Date: 02/21/2024 [...] M.D. Signed By: 02/21/2430 DD/ 6 TD/TT: Psychometrician: [place] [address] CT Scan Report Signed Patient: COREY CANALES MR#: [id number] : 1955 Acct:[id number] Age/Sex: 68 / F ADM Date: 02/19/24 Loc: CT Attending Dr: Ishan Quezada D.O. Ordering Physician: Ishan Quezada D.O. Date of Service: 02/19/24 Procedure(s): CT ela g screening low-dose Accession Number(s): [id number] cc: Erasto Henry M.D. [place] [id number] Patient Name: LISE DUFFT MRN: [id number] date: 1955 Sex: F Assigned Patient Location: CT Current Patient Location: ED.MAIN Accession/Order Number: [id number] Exam Date: 02/19/2024 13:15 Report Date: 02/21/2024 [...] Castillo M.D. Signed By: 02/21/2430 DD/ TD/TT: Psychometrician: PROF Ramírez(COMP METB) Reviewed date:07/13/2024 05:11:02 PM Interpretation: Performing Lab: Notes/Report: [facility] , Sodium 139 136-145 mmol/L Potassium [...] 0.8 Performing Lab: see note ML - [facility] LB CBC AUTO DIFF Reviewed date:07/13/2024 05:11:02 PM Interpretation: Performing Lab: Notes/Report: [facility] , White Blood Count 19.3 4.0-11.0 10 [...] 3/uL Performing Lab: see note ML - [facility] LB UA RANDOM W or MICROSCOPIC Reviewed date:07/09/2024 03:17:04 PM Interpretation: Performing Lab: Notes/Report: [facility] , Color Urine LT. YELLOW YELLOW Clarity Urine CLEAR CLEAR Specific [place] Urine 1.020 1.005-1.025 pH Urine 6.0 5.0-9.0 [...] ORDERED Performing Lab: see note ML - [facility] LB PROF 14(COMP METB) Reviewed date:07/09/2024 03:17:04 PM Interpretation: Performing Lab: Notes/Report: [facility] , Sodium 137 136-145 mmol/L Potassium [...] 0.8 Performing Lab: see note ML - [facility] LB MAGNESIUM Reviewed date:07/09/2024 03:17:04 PM Interpretation: Performing Lab: Notes/Report: [facility] , Magnesium 2.0 1.8-2.4 mg/dL Performing Lab: see note ML - [facility] LB CBC AUTO DIFF Reviewed date:07/09/2024 03:17:04 PM Interpretation: Performing Lab: Notes/Report: 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) Active confirmed Problem 024422296 Chronic obstructive pulmonary disease with (acute) exacerbation (J44.1) Active confirmed Problem Chronic respiratory failure (43512297) Chronic respiratory failure with hypoxia (J96.11) Active confirmed Problem 210991722265421 FPC (current) use of systemic steroids (Z79.52) Active confirmed Problem Hyperlipidaemia (13269084) Hyperlipemia (E78.5) Active confirmed Problem COPD - Chronic obstructive pulmonary disease (22982112) COPD (chronic obstructive pulmonary disease) (J44.9) Active confirmed Problem Coronary artery disease (01480928) CAD (coronary artery disease) (I25.10) Active confirmed Problem Coronary artery disease (72631460) Coronary artery disease (I25.10) Active confirmed Problem Depression (655644755) Depression (F32.9) Active confirmed Problem Essential hypertension (71601807) Benign essential HTN (I10) Active confirmed Problem Acid reflux (514103609) Acid reflux (K21.9) Active confirmed Problem Displacement of lumbar intervertebral disc without myelopathy (15478706) Bulging lumbar disc (M51.26) Active confirmed Problem Acute exacerbation of chronic obstructive airways disease (500314146) COPD exacerbation (J44.1) Active confirmed Problem Leukocytosis (647049284) Leukocytosis (D72.829) Active confirmed Problem Lumbar radiculopathy (034940482) Left lumbar radiculopathy (M54.16) Active confirmed Problem Ex-tobacco user (finding) (670790219) History of tobacco abuse (Z87.891) Active confirmed 80 pack-yea r history Problem Chronic obstructive pulmonary disease (20953757) Advanced COPD (J44.9) Active confirmed Problem Gastroesophageal reflux disease (067798794) Gastroesophageal reflux disease (K21.9) Active confirmed Problem Essential hypertension (44597680) Essential Hypertension (I10) Active confirmed Problem Essential hypertension (97294104) BP (high blood pressure) (I10) Active confirmed Problem Bullous emphysema (784701881) Bullous emphysema (J43.9) Active confirmed Problem Chronic kidney disease stage 3B (disorder) (884516691) Chronic kidney disease, stage 3b (N18.32) Active confirmed Problem Chronic kidney disease stage 3A (disorder) (262707254) Stage 3a chronic kidney disease (CKD) (N18.31) [...] Encounter Location Date Provider Diagnosis Pulmonary Medicine [address] [address] 01/29/2024 Ishan Quezada Chronic respiratory failure with hypoxia J96.11 ; 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 ; Essential Hypertension I10 ; History of tobacco abuse Z87.891 and Underweight R63.6 [facility] [place] [address] [place] [address] 08/05/2024 [facility] Chronic respiratory failure with hypoxia J96.11 ; 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 ; History of tobacco abuse Z87.891 ; Underweight R63.6 ; Encounter for screening for malignant neoplasm of respiratory organs Z12.2 and FPC (current) use of systemic steroids Z79.52 [facility] [place] [address] [place] [address] 11/04/2024 [facility] Chronic respiratory failure with hypoxia J96.11 ; 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 ; History of tobacco abuse Z87.891 ; Underweight R63.6 and FPC (current) use of systemic steroids Z79.52 [facility] [place] [address] [place] [address] 02/26/2024 [facility] [place] [address] [place] [address] 08/06/2024 [facility] COPD (chronic obstructive pulmonary disease) J44.9 [facility] [place] [address] [facility] [address] 12/16/2024 [facility] [place] [address] [facility] [place] [address] 12/23/2024 [facility] [place] [address] [place] [address] 12/23/2024 [facility] [place] [address] [place] [address] 12/24/2024 [facility] Assessments Encounter Date Diagnosis (ICD Code) Assessment [...] Remains underweight. Continue healthy caloric intake. 11/04/2024 FPC (current) use of systemic steroids (ICD-10 - [...] BMI 17.9. Healthy calorie intake recommended. 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 08/05/2024 Other Plan Of Treatment Next Appt Details Provider Name:Ishan Quezada, 01/01/2025 08:00:00 AM, [address] [place], [address], Provider Name:Ishan Quezada, 05/06/2025 02:00:00 PM, [address] [place], [address], Insurance Providers Payer Name Payer Address Payer Phone Subscriber Number Group Number Insured Name Patient Relationship to Insured Coverage Start Date Coverage End Date [employer] [address] [address] [place] [address] [id number] Covert, Lise Self - patient is the insured MED[employer] [place] [address] [place] [phone] [id number] Covert, Lise Self - patient is the [...] Diabetes mellitus type 2, controlled E11 .9 [place]-vesical fistula N32.1 Vitamin D deficiency E55.9 History of tobacco abuse Z87.891 Surgical History Surgery Date(Month/Year) RUL wedge resection 04/04/2022 Right thoracostomy tube insertion 022 Coronary stent x1 03/08/2020 Exploratory laparotomy 2019 Colonoscopy 2018 Left lung surgery 2016 Hospitalization History Reason Date(Month/Year) Pneumonia-[facility] 07/07/2024 COPD Exacerbation-[facility] 06/26/2024 SOB-[facility] 12/18/2023 Acute Respiratory Failure-[facility] 01/29/2023 COPD exacerbation 07/2018 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
--- OUTSIDE RECORDS SUMMARY | 2024-12-28 11:44 | XMS_ITS | CCD ---
Author Organization [facility] CliniSypr Care Team Providers Care Bioengineer Name Role Phone IMAN WILLIS Admitting Unavailable [...] Primary Care Provider MERZA, NOORALDIN Referring Unavailable MOUKARBJER MARTÍNEZ Attending Unavailable TAJ, JER Attending Unavailable AVINASH SERRANO Referring Unavailable KAUSHAL, JAZMIN Admitting Unavailable HORANI, KONG Attending Unavailable HORANI, KONG Referring Unavailable MERZA, NOORALDIN Referring Unavailable MERZA, NOORALDIN Referring Unavailable Erasto Burroughs MD Primary Care Provider Gt Wyatt MD Attending Provider [phone] Ihsan BROWN Attending Unavailable BROWN, Ihsan R Attending Unavailable Enmanuel Bond DO Attending Provider Gt Wyatt Attending Unavailable Gt Wyatt Admitting Unavailable Gt Wyatt Attending Unavailable Gt [place] Admitting Unavailable Enmanuel Bond Admitting Unavailable Enmanuel Bond Attending Unavailable ERASTO BURROUGHS Attending Unavailable ERASTO BURROUGHS Attending Unavailable ERASTO BURROUGHS Attending Unavailable ABDIAZIZ THOMAS Attending Unavailable ERASTO BURROUGHS Attending Unavailable ERASTO BURROUGHS Attending Unavailable ERASTO BURROUGHS Attending Unavailable Allergies Allergy Classification Reported Allergen(s) Allergy Type Date of Onset Reaction(s) Facility (7 sources) Azithromycin; Translations: [AZITHROMYCIN] Drug Allergy 9 [facility] Repository (8 sources) Latex; Translations: [LATEX] Drug allergy (disorder) 7 [facility] Repository (20 sources) Azithromycin Drug Allergy 3 [facility] (20 sources) Latex Allergy to substance 3 [facility] (1 source) Azithromycin; Translations: [Zithromax] Drug Allergy [facility] Repository (1 source) Azithromycin Drug Allergy 2 [facility] Repository (1 source) Latex Drug allergy (disorder) 2 [facility] Repository Medications Current Medications Medication Drug Class(es) Dates Sig (Normalized) Sig (Original) acetaminophen 500 mg oral tablet (12 sources) Start: 04-06-2022 Acetaminophen (Tylenol Ex Str Rapid Release) 500 mg Tablet Active 1000 MG PO Q6H as needed for Pain April 06, 2022 12:00am acetaminophen (T ylenol) 500 MG tablet Take by mouth Active acetaminophen 325 mg / oxyCODONE hydrochloride 5 mg oral tablet (14 sources) Opioid Agonist Start: 12-25-2024 take 1 tablet by mouth every six hours for pain oxyCODONE-acetaminophen (Percocet) 5-325 MG tablet Indications: Degeneration of intervertebral disc of lumbar region with discogenic back pain and lower extremity pain Take 1 tablet by mouth every 6 (six) hours if needed for severe pain 15 tablet 12/25/2024 Active Start: 11-06-2024 End: 12-05-2024 take 1 tablet [...] 7 days 28 tablet 10/21/2024 10/28/2024 Active End: 12-25-2024 take 1 tablet by mouth every six hours as needed for pain oxyCODONE-acetaminophen (Percocet) 5-325 MG tablet Take 1 tablet by mouth every 6 (six) hours if needed for severe pain 12/25/2024 Discontinued (Reorder) albuterol 0.833 mg/ml / ipratropium bromide 0.167 mg/ml inhalation solution (4 sources) Anticholinergic, beta2-Adrenergic Agonist Start: 04-06-2022 take 1 mL by inhalation four times daily Ipratropium-Albuterol 0.5 mg-3 mg(2.5 mg base)/3 mL Solution For Nebulization Active 0.5 ML INHALATION Four times daily April 06, 2022 12:00am arginine 500 mg oral tablet (20 sources) [...] (Dr/Ec) Active 81 MG PO Daily April 06, 2022 12:00am atorvastatin 40 mg oral tablet (12 sources) HMG-CoA Reductase Inhibitor Start: 04-06-2022 take 1 tablet by mouth once daily at bedtime Atorvastatin 40 mg Tablet Active 40 MG PO Daily at bedtime April 06, 2022 12:00am cholecalciferol 0.05 mg oral capsule (20 sources) [...] Tablet Active 50 MCG PO Daily April 06, 2022 12:00am ciprofloxacin 500 mg oral tablet (1 source) [...] Sprinkle Active 90 MG PO Daily April 06, 2022 12:00am Start: 04-06-2022 take 90 mg by mouth once daily Duloxetine Active 90 MG PO Daily April 05, 2022 11:00pm eszopiclone 3 mg oral tablet (20 sources) Start: 04-06-2022 End: 11-20-2024 take 1 tablet by mouth once daily at bedtime as needed for sleep Eszopiclone 3 mg Tablet Active 3 MG PO Daily at bedtime as needed for Sleep April 06, 2022 12:00am furosemide 40 mg oral tablet (9 sources) Loop Diuretic Start: 05-30-2023 End: 06-26-2024 take 1 tablet by mouth every twenty-four hours as needed furosemide (Lasix) 40 MG tablet Take 1 tablet by mouth Daily as needed 05/30/2023 06/26/2024 Discontinued gabapentin 300 mg oral capsule (8 sources) Anti-epileptic Agent Start: 11-20-2024 take 1 [...] hyperglycemia, without long-term current use of insulin ([facility]) TAKE 1 TABLET(5 MG) BY MOUTH DAILY 90 tablet 3 03/12/2024 11/20/2024 Discontinued 12 hr guaiFENesin 600 mg extended release oral tablet (8 sources) Start: 11-12-2024 take 1 tablet by mouth in the morning, then take 1 tablet by mouth every twelve hours at bedtime guaiFENesin (Mucinex) 600 MG 12 hr tablet Take 1,200 mg by mouth in the morning and 1,200 mg before bedtime. 11/12/2024 Active ibuprofen 200 mg oral tablet (7 sources) Nonsteroidal Anti-inflammatory Drug ibuprofen 200 MG tablet Take by mouth Active insulin lispro (HumaLOG) 100 unit/ml injection (1 source) insulin lispro (HumaLOG) 100 unit/ml injection Inject under the skin in the morning and at noon and in the evening. Inject with meals. See After Visit Summary for instructions on how to take your insulin. Active ipratropium bromide 0.2 mg/ml inhalation solution [...] 09/04/2024 Active melatonin 5 mg oral tablet (4 sources) Start: 04-06-2022 take 1 tablet by mouth at bedtime as needed for sleep Melatonin 5 mg Tablet Active 5 MG PO Bedtime as needed for Sleep April 06, 2022 12:00am metoprolol tartrate 25 mg oral tablet (20 sources) beta-Adrenergic Joslyn Start: 06-08-2023 End: 11-20-2024 take 0.5 tablet by mouth in the morning metoprolol tartrate (Lopressor) 25 MG tablet Take 0.5 tablets by mouth in the morning and 0.5 tablets before bedtime. 06/08/2023 11/20/2024 Discontinued Start: 04-06-2022 Metoprolol Tar trate 25 mg Tablet Active 12.5 MG PO Q12H April 06, 2022 12:00am Start: 04-06-2022 take 12.5 mg by mout h every twelve hours Metoprolol Tartrate Active 12.5 MG PO Q12H April 05, 2022 11:00pm 10 actuat olodaterol 0.0025 mg/actuat / tiotropium 0.0025 mg/actuat inhalation spray (19 sources) Anticholinergic, beta2-Adrenergic Agonist Start: 08-06-2024 tiotropium-olodaterol [...] pantoprazole 40 mg delayed release oral tablet (4 sources) Proton Pump Inhibitor Start: 04-06-2022 take 1 tablet by mouth once daily Pantoprazole 40 mg Tablet,Delayed Release (Dr/Ec) Active 40 MG PO Daily April 06, 2022 12:00am potassium chloride 20 meq extended release oral [...] 05/30/2023 Active predniSONE 10 mg oral tablet (17 sources) Start: 08-28-2024 End: 11-20-2024 take 6 [...] Tablet Active 10 MG PO Daily April 06, 2022 12:00am pregabalin 100 mg oral capsule (20 sources) Start: 04-06-2022 End: 11-20-2024 take 1 capsule by mouth three times daily Pregabalin 100 mg Capsule Active 100 MG PO Three times daily April 06, 2022 12:00am traMADol hydrochloride 50 mg oral tablet (2 [...] Sig (Original) clopidogrel 75 mg oral tablet (13 sources) P2Y12 Platelet Inhibitor Start: 04-06-2022 End: 06-26-2024 take 1 tablet by mouth once daily Clopidogrel 75 mg Tablet Discontinued 75 MG PO Daily April 06, 2022 12:00am June 26, 2023 2:30pm Fluticasone Furoate-Vilanterol (4 sources) Corticosteroid, beta2-Adrenergic Agonist Start: 04-06-2022 End: 06-26-2023 Fluticasone Furoate-Vilanterol 200-25 mcg/dose Blister With Device Discontinued 1 INH INHALATION Daily April 06, 2022 12:00am June 26, 2023 2:31pm Start: 04-06-2022 End: 06-26-2023 Fluticasone Furoate-Vilanter ol 200-25 mcg/dose Blister With Device Discontinued 1 [...] 24 hr nicotine 0.875 mg/hr transdermal system (4 sources) Cholinergic Nicotinic Agonist Start: 04-06-2022 End: 06-26-2023 apply 1 dose transdermal route every twenty-four hours Nicotine 21 mg/24 hr Patch 24 Hour Discontinued 1 PATCH TRANSDERML Daily April 06, 2022 12:00am June 26, 2023 2:31pm Start: 04-06-2022 End: 06-26-2023 apply 1 dose transdermal route once daily Nicotine Discontinued 1 PATCH TRANSDERML Daily April 05, 2022 11:00pm June 26, 2023 1:31pm 24 hr NIFEdipine 30 mg extended release oral tablet (4 sources) Dihydropyridine Calcium Channel Joslyn Start: 04-06-2022 End: 06-26-2023 take 1 tablet by mouth once daily Nifedipine 30 mg Tablet Extended Release Discontinued 30 MG PO Daily April 06, 2022 12:00am June 26, 2023 2:32pm Problems Active Problems Problem Classification Problem Date Documented Date Episodic/Chronic Acute myocardial infarction (2 sources) Non-ST elevation (NSTEMI) myocardial infarction; Translations: [Non-ST elevation (NSTEMI) myocardial infarction] Onset: 06-04-2023 Chronic Chronic obstructive pulmonary disease and bronchiectasis (20 sources) Chronic obstructive pulmonary disease, unspecified; Translations: [Emphysema, unspecified] Onset: 12-18-2021 Resolved: 10-09-2024 08-27-2023 Chronic Coronary atherosclerosis and other heart disease (20 sources) Atherosclerotic heart disease of [place] coronary artery without angina pectoris; Translations: [Coronary [...] 12-22-2021 Chronic Other aftercare (5 sources) Other mcc (current) drug therapy; Translations: [OTH RADIO MECHANIC CURRENT DRUG THERAPY] Onset: 05-01-2022 Episodic Other aftercare (18 sources) Long-term current use of drug therapy; Translations: [Other mcc (current) drug therapy] Onset: 10-09-2024 10-09-2024 Episodic [...] symptoms referable to limbs] 11-20-2024 Episodic Other connective tissue disease (1 source) Muscle weakness of limb; Translations: [Other symptoms and signs involving the musculoskeletal system] 12-19-2024 Episodic Other lower respiratory disease (4 sources) Other nonspecific abnormal finding of lung field; Translations: [OTH NONSPECIFIC ABN FIND LNG FIELD] Onset: 10-31-2022 Episodic Other nervous system disorders (20 sources) Thoracic outlet syndrome; Translations: [Brachial plexus disorders] Onset: 08-27-2023 08-27-2023 Chronic Other nervous system disorders (1 source) Disorder of left femoral nerve; 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, left lower limb] 12-19-2024 Chronic Other nervous system disorders (20 sources) Paresthesia; Translations: [Paresthesia of skin] Onset: 08-27-2023 08-27-2023 Episodic Other nervous system disorders (6 sources) Numbness; [...] Date Documented Da te Episodic/Chronic Acute bronchitis (20 sources) Acute infective bronchitis; Translations: [Acute bronchitis [...] Onset: 08-27-2023 Resolved: 02-21-2024 02-21-2024 Episodic Mycoses (20 sources) Pneumonia in aspergillosis; Translations: [Aspergillosis, unspecified] Onset: 07-22-2024 Resolved: 10-09-2024 07-22-2024 Episodic Nutritional deficiencies (1 source) Cachexia; Translations: [CACHEXIA] Onset: 04-04-2022 Episodic Other aftercare (1 source) residential (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; Translations: [LONG-TERM CURRENT USE OF ASPIRIN] Onset: 05-01-2022 Episodic Other aftercare (1 source) long term care pharmacist (current) use of antithrombotics/ant iplatelets; Translations: [RADIO MECHANIC ANTITHROMBOT/ANTIPL ATLETS] Onset: 03-16-2022 Episodic Other aftercare [...] Spondylosis; intervertebral disc disorders; other back problems (12 sources) Lumbar radiculopathy; Translations: [Radiculopathy, lumbar region] Onset: 08-27-2023 11-20-2024 Episodic Urinary tract infections (20 sources) Pyelonephritis; Translations: [Tubulo-interstitia l nephritis, not specified as acute or chronic] Onset: 02-21-2024 Resolved: 07-17-2024 02-21-2024 Episodic Results Test Name Value Interpretation Reference Range Facility Urine Cultureon 12-10-2024 Bacteria identified Cx Nom (U) Urine Culture Results No Growth 2 Days PERFORMED BY: [place] [id number] PATHOLOGIST HORTICULTURAL MANAGER CLAUDIA GROVER M.D. Normal [facility] Comment on above: Performed By: #### C UU #### [address] ALL SED RATEon 12-02-2024 Interpretation and review of laboratory results Abnormal [facility] TBH SED RATE 67 High NINF [facility] Patient Letter FTMCon 2024 Patient Letter [facility] Patient Letter [facility] November 10, 2024 LISE CANALES [address] [place] [address] : 1955 Dear Ms. Lise Canales, You [...] any future cancellations. Sincerely, [place] [address] ext.3 [facility] [place] [address] Magnetic Resonance Report Signed Patient: LISE CANALES MR#: [id number] : 1955 Acct:[id number] Age/Sex: 69 / F ADM Date: 10/27/24 Loc: MRI Attending Dr: Arielle Perry M.D. Ordering Physician: Arielle Perry M.D. Date of Service: 10/27/24 Procedure(s): MR lumbar spine wo con Accession Number(s): [id number] cc: Erasto Burroughs M.D.; Arielle Perry M.D. The [address] [address] Patient Name: LISE CANALES MRN: [id number] date: 1955 Sex: F Assigned Patient Location: MRI Current Patient Location: MRI Accession/Order Number: [id number] Exam Date: 10/27/2024 14:11 Report Date: 10/27/2024 [...] stenosis. Posterior element hypertrophy. Moderate left and [id number] right neural foraminal narrowing L4-5: Adequate disc [...] Enmanuel Mar M.D.10/27/2024 2:23 PM Dictation Location: [place] [address] Electronically authenticated by: [id number] Y Date: 10/27/2024 14:23 Dictated By: Enmanuel Mar D.O. Signed By: 10/27/24 1426 DD/ 1423 TD/TT: Car Pincher: [facility] Radiology, Radiologist, - 10/27/2024 [place] [address] Magnetic Resonance Report Signed Patient: COVERT,LISE Easton MR#: [id number] : 1955 Acct:[id number] Age/Sex: 69 / F ADM Date: 10/27/24 Loc: MRI Attending Dr: Arielle Perry M.D. Ordering Physician: Arielle Perry M.D. Date of Service: 10/27/24 Procedure(s): MR lumbar spine wo con Accession Number(s): [id number] cc: Erasto Burroughs M.D.; Arielle Perry M.D. The [place] [id number] Patient Name: LISE Easton COVERT MRN: [facility]:[id number] date: 1955 Sex: F Assigned Patient Location: MRI Current Patient Location: MRI Accession/Order Number: [id number] Exam Date: 10/27/2024 14:11 Report Date: 10/27/2024 [...] stenosis. Posterior element hypertrophy. Moderate left and [id number] right neural foraminal narrowing L4-5: Adequate disc [...] Enmanuel Mar M.D.10/27/2024 2:23 PM Dictation Location: [place] [address] Electronically authenticated by: [id number] Y Date: 10/27/2024 14:23 Dictated By: Enmanuel Mar D.O. Signed By: 10/27/24 1426 DD/ 142 TD/TT: Car Pincher: [facility] Radiology Study observation (narrative) [facility] MR LUMBAR SPINE WO CONOrdere d By: Radiologist Radiology on 10-27-2024 [facility] [employer] Work Phone: XR LUMBAR SPINE MIN 4Von The [address] [address] XRay Report Signed Patient: LISE CANALES MR#: [id number] : 1955 Acct:[id number] Age/Sex: 69 / F ADM Date: 10/10/24 Loc: EC Attending Dr: Arielle Perry M.D. Ordering Physician: Arielle Perry M.D. Date of Service: 10/10/24 Procedure(s): XR lumbar spine min 4V Accession Number(s): [id number] cc: Erasto Burroughs M.D.; Arielle Perry M.D. The [place] [address] Patient Name: LISE CANALES MRN: [facility]:[id number] date: 1955 Sex: F Assigned Patient Location: Current Patient Location: LAB Accession/Order Number: [id number] Exam Date: 10/10/2024 12:36 Report Date: 10/10/2024 [...] Allyn Contreras M.D.10/10/2024 12:41 PM Dictation Location: [place] [address] Electronically authenticated by: [id number] Y Date: 10/10/2024 12:41 Dictated By: Allyn Contreras M.D. Signed By: 10/10/24 1244 DD/ 1241 TD/TT: Car Pincher: [facility] Radiology, Radiologist, MD - 10/10/2024 [place] [address] XRay Report Signed Patient: LISE CANALES MR#: [id number] : 1955 Acct:[id number] Age/Sex: 69 / F ADM Date: 10/10/24 Loc: EC Attending Dr: Arielle Perry M.D. Ordering Physician: Arielle Perry M.D. Date of Service: 10/10/24 Procedure(s): XR lumbar spine min 4V Accession Number(s): [id number] cc: Erasto Burroughs M.D.; Arielle Perry M.D. [place] [address] Patient Name: LISE CANALES MRN: [id number] date: 1955 Sex: F Assigned Patient Location: EC Current Patient Location: LAB Accession/Order Number: [id number] Exam Date: 10/10/2024 12:36 Report Date: 10/10/2024 [...] ACUTE BONY FINDINGS. Impression dictated by: Allyn Contrears M.D.10/10/2024 12:41 PM Dictation Location: [place] [address] Electronically authenticated by: [id number] Y Date: 10/10/2024 12:41 Dictated By: Allyn Contreras M.D. Signed By: 10/10/24 1244 DD/ 1241 TD/TT: Car Pincher: [facility] Healthcare Radiology Study observation (narrative) [facility] XR LUMBAR SPINE MIN 4VOrdere d By: Radiologist Radiology on 10-10-2024 [facility] Work Phone: Urine Cultureon 07-09-2024 Bacteria identified Cx Nom (U) No Growth 2 Days PERFORMED BY: [place] [address] PATHOLOGIST HORTICULTURAL MANAGER LEA QUINTANILLA M.D. Normal [facility] Comment on above: Performed By: #### C UU #### [address] [address] [facility] Aerobic Cultureon 07-08-2024 Aerobic Culture ORGANISM: Asperigillus fumigatus (O:ASPFUM) Comments . Quantity of Growth Rare Growth Send Test to Ref. Lab Sent to [facility] for Mold Identification Identification performed at: [address] [id number] [place] Operator: Deejay Cortez PhD, Phone: [phone] Gram Stain Result 3+ White Blood Cells 1+ Yeast Like Elements 1+ Epithelial Cells 1+ Gram Positive Bacilli Rare Gram Positive Cocci PERFORMED BY: [place] [address] PATHOLOGIST HORTICULTURAL MANAGER LEA QUINTANILLA M.D. Normal [facility] Comment on above: Performed By: #### G S, AERC #### [place] [id number] [facility] Gram Stainon 07-08-2024 Microscopic observation Gram stain Nom (Unsp spec) Gram Stain Result 3+ White Blood Cells 1+ Yeast Like Elements 1+ Epithelial Cells 1+ Gram Positive Bacilli Rare Gram Positive Cocci PERFORMED BY: [place] [address] PATHOLOGIST HORTICULTURAL MANAGER LEA QUINTANILLA M.D. Normal [facility] Comment on above: Performed By: #### G S, AERC #### [place] [id number] [facility] Gram stain microscopyOrdered By: Gt Wyatt on 07-08-2024 Microscopic observation Gram stain Nom (Unsp spec) Gram stain microscopy [facility] URINE CULTURE, ROUTINEon Bacteria identified Cx Nom (U) Urine Culture, Routine [facility] Bacteria identified Cx Nom (U) No growth [facility] Bacteria identified Cx Nom (U) Performed at: [facility] Bacteria identified Cx Nom (U) [address] [place], [place] [id number] [facility] Bacteria identified Cx Nom (U) [place] Operator: Deejay Cortez PhD, Phone: [phone] [facility] Ambulatory Visit Summaryon 1 07-12-2023 Ambulatory Visit Summary Ambulatory Visit Summary LISE CANALES :1955 Visit Date:05/12/2024 Ambulatory Visit Instructions Your [...] Follow-Up Appointments Sunday 1:45 PM EDT With: Ishan BROWN MD Where: [facility] [address] [facility] [place] [address]- You Need to Schedule the Following Appointments Follow Up with Ihsan BROWN MD, [place] When: Where: [facility] [address], [place] [address]- Medications What How Much When Instructions New cephalexin (Keflex 500 mg Cap) 1 Capsules By Mouth Every 12 hours Duration: 10 Days Pickup at [facility] #[id number] Changed estradiol topical (estradiol 0.1 mg/ g Vag Crm) 1 Gram Vaginal As Directed Plunge 1 gm vaginally then apply excess cream around the urethra once a week at night. Pickup at [facility] #[id number] Unchanged albuterol (Albuterol (Eqv-Proventil HFA) 90 mcg/ [...] physician if questions or concerns Pharmacy Information [facility] #[id number]: [address], [place] [phone] Allergies Latex (RASH) Zithromax (HIVES) Problems Ongoing [...] The urethra (more content not included)... Normal [facility] Urology Office/Clinic Noteon 05-12-2024 Urology Office/Clinic [...] x 10 days. SEs discussed. Sent to [facility]. unable to send urine for culture today due to no transport. -Restart Estradiol cream. Use 1x/week. Notify office if experiencing SEs. Sent to [facility]. 3. Asymptomatic microscopic hematuria (R31.21: Asymptomatic microscopic hematuria) Chronic. [2] Follow-up With When Contact Information KEVIN SALDIVAR, Ihsan Wild, URL [facility] [address], [place] [address]- Additional Instructions: 6 mos for UD Patient [...] refills GUAIFE (more content not included)... Normal [facility] Comment on above: Result Comment: Elec tronically Signed By: Ihsan BROWN MD\.br\Date and Time Signed: 05/12/24 17:00 EST\.br\Electronically Co-Signed By: Katarina Bose\.br\Date and Time Co-Signed: 05/12/24 16:58 EST MLR HEMOGLOBIN A1Con 024 Glucose [Mass/Vol] 192 mg/dL [facility] HbA1c (Bld) [Mass fraction] 8.3 % High 4.5 - 6.2 % [facility] Comment on above: ADA RECOMMENDED LIMI T 4.0 - 6.0 ADA THERAPEUTIC TARGET < 7.0 ACTION SUGGESTED > 7.0 Interpretation and review of laboratory results Abnormal [facility] 36on 02-12-2024 36 Tried to contact patient again. She has no VM. [facility] 36on 01-29-2024 36 Regarding lab result s from 01/07/2024: MD Kika Becerra MA Blood work is ok, follow up as planned in 6 months. Tried to contact patient but no VM. Will try again tomorrow. [facility] Office Visiton 01-07-2024 Follow-up visit [id number] Covert,Lise 1955 F Date Provider Department Center 01/07/2024 JER LARRY Family History Problem Relation Age of Onset Stroke Father Stroke Father's Sister Coronary artery disease Paternal Grandmother Family Status - Relation Status Age at Father Father's Sister Paternal Grandmother Level of Service:57091 [place] OFFICE/OUTPATIENT ESTABLISHED MOD MDM 30 MIN [facility] 36on 09-03-2023 36 Home health informed and script sent [facility] Orders Onlyon 08-30-2023 Orders Only [id number] Covert,Lise 1955 Provider Department [place] 08/30/2023 RUSH HENNESSY MARC Kirk Family History Problem Relation Age of Onset Stroke Father Stroke Father's Sister Coronary artery disease Paternal Grandmother Family Status - Relation Status Age at Father Father's Sister Paternal Grandmother [facility] Office Visiton 06-27-2023 Follow-up visit [id number] Covert,Lise 1955 F Date Provider Department Center 06/27/2023 JER LARRY Family History Problem Relation Age of Onset Stroke Father Stroke Father's Sister Coronary artery disease Paternal Grandmother Family Status - Relation Status Age at Father Father's Sister Paternal Grandmother Level of Service:33480 [place] OFFICE/OUTPATIENT ESTABLISHED LOW MDM 20 MIN [facility] 30on 06-06-2023 30 The patient is Moderately Stable - Low risk of patient condition declining or worsening The patient's goals for the shift include comfort The clinical goals for the shift include stable VS Problem: Safety - Adult Goal: Free from fall injury Outcome: Adequate for Discharge Flowsheets (Taken 06/06/2023 08) Free from fall injury: Assess patient frequently [...] symptoms for stability, deterioration, or improvement Normal [facility] BASIC METABOLIC PANELon 11- Anion gap [Moles/Vol] 9 mmol/L Normal 7-20 [facility] Comment on above: Performed By: #### L AB325 #### [facility] [address] [place] [address] Calcium [Mass/Vol] 8.3 mg/dL Low 8.6-10.3 [facility] Comment on above: Performed By: #### L AB325 #### [facility] ([facility]) [address] [place] [address] Chloride [Moles/Vol] 99 mmol/L Normal 98-107 [facility] Comment on above: Performed By: #### L [id number] #### [facility] ([facility]) [address] [place] [address] CO2 [Moles/Vol] 26 mmol/L Normal 21-31 [facility] Comment on above: Performed By: #### L [id number] #### [facility] ([facility]) [address] [place] [address] Creatinine [Mass/Vol] 0.72 mg/dL Normal 0.60-1.20 [facility] Comment on above: Performed By: #### L [id number] #### [facility] ([facility] [address] [place] [address] GLOMERULAR FILTRATION RATE ML/MIN/1.73 SQ M.PREDICTED 92.2 mL/min/1.73m*2 Normal >60.0 [facility] Comment on above: Result Comment: [facility]???s estimated glomerular filtration rate (eGFR) [...] individuals. Performed By: #### L [id number] #### [facility] ([facility] [address] [place] [address] Glucose [Mass/Vol] 107 mg/dL High 70-100 [facility] Comment on above: Performed By: #### L [id number] #### [facility] ([facility] [address] [place] [address] Potassium [Moles/Vol] 3.9 mmol/L Normal 3.5-5.1 [facility] Comment on above: Performed By: #### L [id number] #### [facility] ([facility] [address] [place] [address] Sodium [Moles/Vol] 130 mmol/L Low 136-145 [facility] Comment on above: Performed By: #### L [id number] #### [facility] ([facility] [address] [place] [address] Urea nitrogen [Mass/Vol] 12 mg/dL Normal 7-25 [facility] Comment on above: Performed By: #### L [id number] #### [facility] ([facility] [address] [place] [address] UREA NITROGEN/CREATININE (MASS RATIO) IN SER/PLAS 16.7 Normal [facility] Comment on above: Performed By: #### L [id number] #### [facility] ([facility] [address] [place] [address] CBCon 06-06-2023 Erythrocyte distribution width (RBC) [Ratio] 13.4 % Normal 11.5-15.0 [facility] Comment on above: Performed By: #### L [id number] #### [facility] ([facility] [address] [place] [address] ERYTHROCYTE MEAN CORPUSCULAR HEMOGLOBIN CONCENTRATION (G/DL) BY AUTOMATED 33.4 g/dL Normal 32.0-35.0 [facility] Comment on above: Performed By: #### L [id number] #### [facility] ([facility] [address] [place] [address] Hematocrit (Bld) [Volume fraction] 28.7 % Low 36.0-48.0 [facility] Comment on above: Performed By: #### L [id number] #### [facility] ([facility] [address] [place] [address] Hemoglobin (Bld) [Mass/Vol] 9.6 g/dL Low 12.0-15.0 [facility] Comment on above: Performed By: #### L [id number] #### [facility] ([facility] [address] [place] [address] MCH (RBC) [Entitic mass] 28.2 pg Normal 27.0-33.0 [facility] Comment on above: Performed By: #### L [id number] #### [facility] ([facility] [address] [place] [address] MCV (RBC) [Entitic vol] 84.4 fL Normal 82.0-98.0 [facility] Comment on above: Performed By: #### L [id number] #### [facility] ([facility] [address] [place] [address] PLATELETS (10*3/UL) IN BLOOD AUTOMATED COUNT 522 10*3/uL High 150-400 [facility] Comment on above: Performed By: #### L [id number] #### [facility] ([facility] [address] [place] [address] RBC (Bld) [#/Vol] 3.40 10*6/uL Low 3.80-5.00 [facility] Comment on above: Performed By: #### L [id number] #### [facility] ([facility] [address] [place] [address] WBC (Bld) [#/Vol] 10.31 10*3/uL Normal 4.00-10.60 [facility] Comment on above: Performed By: #### L [id number] #### [facility] ([facility] [address] [place] [address] Letter (Out)on 06-06-2023 Letter (Out) [id number] Covert,Lise Easton 1955 F Date Provider Department Center 06/06/2023 [id number], GENERIC PRO*INIT None Family History Problem Relation Age of Onset Stroke Father Stroke Father's Sister Coronary artery disease Paternal Grandmother Family Status - Relation Status Age at Father Father's Sister Paternal Grandmother Normal [facility] MAGNESIUMon 06-06-2023 Magnesium [Mass/Vol] 1.9 mg/dL Normal 1.9-2.7 [facility] Comment on above: Performed By: #### L [id number] #### [facility] ([facility] [address] [place] [address] 30on 06-05-2023 30 The patient is Moderately Stable - Low risk of patient condition declining or worsening The patient's goals for the shift include comfort The clinical goals for the shift include stable vitals Normal [facility] 30 Daily Case Managemen t Update Multidisciplinary rounds have been completed. Barriers to Discharge: Transfer from [place] for chest pain and NSTEMI. TTE ordered. Pending cardio rec. Trop was .06 down to .04. +UTI and Pneumonia. Continue IV Rocephin. Urine and blood cultures pending. Patient is from home with c and 2L home 02 Diet: Dietary Orders [...] your name here: DANIEL GUERIN 06/05/23 1508 [facility] 30 The patient is Moderately Unstable - Medium risk of patient condition declining or worsening The patient's goals for the shift include comfort The clinical goals for the shift include vss Over the shift, the patient did not make progress toward the following goals. Barriers to progression include . Recommendations to address these barriers include . [facility] 30 The patient is Moderately Stable - [...] injury: Assess patient frequently for physical needs [place] fall precautions as indicated by assessment Identify [...] and prevent overall improvement and discharge Normal [facility] ANTI-XA (HEPARIN LEVEL)on HEPARIN UNFRACTIONATED (U/ML) IN PPP BY CHROMOGENIC METHOD <0.10 Invalid Interpretation Code 0.3-0.7 [facility] Comment on above: Order Comment: Check anti-Xa level every 6 hours while on heparin infusion, or per protocol. Result Comment: [place] roxaban and Apixaban will interfere with the anti Xa assay used to monitor UFH and LMWH. Performed By: #### L [id number] #### [facility] ([facility]ER) [address] [place] [address] HEPARIN UNFRACTIONATED (U/ML) IN PPP BY CHROMOGENIC METHOD <0.10 Invalid Interpretation Code 0.3-0.7 [facility] Comment on above: Order Comment: Check anti-Xa level every 6 hours while on heparin infusion, or per protocol. Result Comment: [place] roxaban and Apixaban will interfere with the anti Xa assay used to monitor UFH and LMWH. Performed By: #### L [id number] #### [facility] ([facility] [address] [place] [address] APTTon 06-05-2023 ACTIVATED PARTIAL THROMBOPLASTIN TIME IN PPP BY COAGULATION ASSAY 38.8 Seconds High 25.0-35.0 [facility] Comment on above: Result Comment: Clin ical significance of the APTT is questionable in the presence of heparin. Performed By: #### L [id number] #### [facility] ([facility] [address] [place] [address] B-TYPE NATRIURETIC PEPTIDEon 06-05-2023 Natriuretic peptide B (Bld) [Mass/Vol] 136 pg/mL High 0-100 [facility] Comment on above: Performed By: #### L [id number] #### [facility] ([facility] [address] [place] [address] BLOOD CULTUREon 06-05-2023 Bacteria identified Cx Nom (Bld) No growth at 5 days Normal [facility] Comment on above: Performed By: #### L [id number] ####[facility] ([facility] [place] [address] Order Comment: From a different site than #1. CBC WITH AUTO DIFFERENTIALon 06-05-2023 Basophils (Bld) [#/Vol] 0.05 10*3/uL Normal 0.00-0.20 [facility] Comment on above: Performed By: #### L [id number] #### [facility] ([facility] [address] [place] [address] Basophils/100 WBC (Bld) 0.3 % Normal 0.0-1.0 [facility] Comment on above: Performed By: #### L [id number] #### [facility] ([facility] [address] [place] [address] Eosinophils (Bld) [#/Vol] 0.02 10*3/uL Normal 0.00-0.50 [facility] Comment on above: Performed By: #### L [id number] #### [facility] ([facility] [address] [place] [address] Eosinophils/100 WBC (Bld) 0.1 % Normal 0.0-6.0 [facility] Comment on above: Performed By: #### L [id number] #### [facility] ([facility] [address] [place] [address] Erythrocyte distribution width (RBC) [Ratio] 13.3 % Normal 11.5-15.0 [facility] Comment on above: Performed By: #### L [id number] #### [facility] ([facility] [address] [place] [address] ERYTHROCYTE MEAN CORPUSCULAR HEMOGLOBIN CONCENTRATION (G/DL) BY AUTOMATED 32.4 g/dL Normal 32.0-35.0 [facility] Comment on above: Performed By: #### L [id number] #### [facility] ([facility] [address] [place] [address] Hematocrit (Bld) [Volume fraction] 35.8 % Low 36.0-48.0 [facility] Comment on above: Performed By: #### L [id number] #### [facility] ([facility] [address] [place] [address] Hemoglobin (Bld) [Mass/Vol] 11.6 g/dL Low 12.0-15.0 [facility] Comment on above: Performed By: #### L [id number] #### [facility] ([facility] [address] [place] [address] Immature granulocytes (Bld) [#/Vol] 0.17 10*3/uL Normal 0.00-0.20 [facility] Comment on above: Performed By: #### L [id number] #### [facility] ([facility]) [address] [place] [address] Immature granulocytes/100 WBC (Bld) 1.0 % Normal 0.0-1.0 [facility] Comment on above: Performed By: #### L [id number] #### [facility] ([facility] [address] [facility] [address] Lymphocytes (Bld) [#/Vol] 0.80 10*3/uL Low 1.20-4.00 [facility] Comment on above: Performed By: #### L [id number] #### [facility] ([facility] [address] [place] [address] Lymphocytes/100 WBC (Bld) 4.6 % Low 20.0-45.0 [facility] Comment on above: Performed By: #### L [id number] #### [facility] ([facility] [address] [place] [address] MCH (RBC) [Entitic mass] 28.3 pg Normal 27.0-33.0 [facility] Comment on above: Performed By: #### L [id number] #### [facility] ([facility] [address] [facility] [place] [address] MCV (RBC) [Entitic vol] 87.3 fL Normal 82.0-98.0 [facility] Comment on above: Performed By: #### L [id number] #### [facility] ([facility] [address] [place] [address] Monocytes (Bld) [#/Vol] 0.78 10*3/uL Normal 0.10-1.00 [facility] Comment on above: Performed By: #### L [id number] #### [facility] ([facility]) [address] [facility] [place] [address] Monocytes/100 WBC (Bld) 4.5 % Low 5.0-12.0 [facility] Comment on above: Performed By: #### L [id number] #### [facility] ([facility] [address] [place] [address] Neutrophils (Bld) [#/Vol] 15.46 10*3/uL High 1.60-7.60 [facility] Comment on above: Performed By: #### L [id number] #### [facility] ([facility]) [address] [place] [address] Neutrophils/100 WBC (Bld) 89.5 % High 40.0-72.0 [facility] Comment on above: Performed By: #### L [id number] #### [facility] ([facility] [address] [place] [address] NRBC (PER 100 WBCS) BY AUTOMATED COUNT 0.0 % Normal 0 [facility] Comment on above: Performed By: #### L [id number] #### [facility] ([facility] [address] [place] [address] PLATELETS (10*3/UL) IN BLOOD AUTOMATED COUNT 517 10*3/uL High 150-400 [facility] Comment on above: Performed By: #### L [id number] #### [facility] ([facility] [address] [place] [address] RBC (Bld) [#/Vol] 4.10 10*6/uL Normal 3.80-5.00 [facility] Comment on above: Performed By: #### L [id number] #### [facility] ([facility] [address] [place] [address] WBC (Bld) [#/Vol] 17.28 10*3/uL High 4.00-10.60 [facility] Comment on above: Performed By: #### L [id number] #### [facility] ([facility]) [address] [place] [address] COMPREHENSIVE METABOLIC PANE [place] 06-05-2023 ALANINE AMINOTRANSFERASE (SGPT) (U/L) IN SER/PLAS <3 Low 7-52 [facility] Comment on above: Performed By: #### L [id number] #### [facility] ([facility]) [address] [place] [address] Albumin [Mass/Vol] 3.1 g/dL Low 3.5-5.7 [facility] Comment on above: Performed By: #### L [id number] #### [facility] ([facility]) [address] [place] [address] ALP [Catalytic activity/Vol] 83 U/L Normal 34-104 [facility] Comment on above: Performed By: #### L [id number] #### [facility] ([facility] [address] [place] [address] Anion gap [Moles/Vol] 13 mmol/L Normal 7-20 [facility] Comment on above: Performed By: #### L [id number] #### [facility] ([facility] [address] [place] [address] AST [Catalytic activity/Vol] 14 U/L Normal 13-39 [facility] Comment on above: Performed By: #### L [id number] #### [facility] ([facility] [address] [place] [address] Bilirubin [Mass/Vol] 0.3 mg/dL Normal 0.3-1.0 [facility] Comment on above: Performed By: #### L [id number] #### [facility] ([facility] [address] [place] [address] Calcium [Mass/Vol] 8.9 mg/dL Normal 8.6-10.3 [facility] Comment on above: Performed By: #### L [id number] #### [facility] ([facility] [address] [place] [address] Chloride [Moles/Vol] 98 mmol/L Normal 98-107 [facility] Comment on above: Performed By: #### L [id number] #### [facility] (BEAKER) [address] [place] [address] CO2 [Moles/Vol] 25 mmol/L Normal 21-31 [facility] Comment on above: Performed By: #### L [id number] #### [facility] ([facility] [address] [place] [address] Creatinine [Mass/Vol] 0.96 mg/dL Normal 0.60-1.20 [facility] Comment on above: Performed By: #### L [id number] #### [facility] ([facility] [address] [place] [address] GLOMERULAR FILTRATION RATE ML/MIN/1.73 SQ M.PREDICTED 65.3 mL/min/1.73m*2 Normal >60.0 [facility] Comment on above: Result Comment: [facility]???s estimated glomerular filtration rate (eGFR) [...] individuals. Performed By: #### L [id number] #### [facility] ([facility] [address] [place] [address] Glucose [Mass/Vol] 93 mg/dL Normal 70-100 [facility] Comment on above: Performed By: #### L [id number] #### [facility] ([facility] [address] [place] [address] Potassium [Moles/Vol] 3.3 mmol/L Low 3.5-5.1 [facility] Comment on above: Performed By: #### L [id number] #### [facility] ([facility] [address] [place] [address] Protein [Mass/Vol] 5.7 g/dL Low 6.0-8.3 [facility] Comment on above: Performed By: #### L [id number] #### [facility] ([facility] [address] [place] [address] Sodium [Moles/Vol] 133 mmol/L Low 136-145 [facility] Comment on above: Performed By: #### L [id number] #### [facility] ([facility]) [address] [place] [address] Urea nitrogen [Mass/Vol] 12 mg/dL Normal 7-25 [facility] Comment on above: Performed By: #### L [id number] #### [facility] ([facility]) [address] [place] [address] UREA NITROGEN/CREATININE (MASS RATIO) IN SER/PLAS 12.5 Normal [facility] Comment on above: Performed By: #### L [id number] #### [facility] ([facility]) [address] [place] [address] CONSULTon 06-05-2023 CONSULT - Attestation signed by [...] / Vomiting and Urinary symptoms to [facility], there she was found to have UTI, labs showed WBC of 17 and she was started on IV antibiotics, work up also showed high sensitive troponin of 62, She doesn't report any chest pain, or discomfort. She was started on heparin drip and was transferred here to [facility]. Today she reports no [...] bilaterally. NEURO: (more content not included)... Normal [facility] ETHANOLon 06-05-2023 ETHANOL (MG/DL) IN SER/PLAS <10 Normal [facility] Comment on above: Performed By: #### L [id number] #### [facility] ([facility] [address] [place] [address] ETHANOL CALCULATED (%) Normal [facility] Comment on above: Performed By: #### L [id number] #### [facility] ([facility] [address] [place] [address] HEMOGLOBIN A1Con 06-05-2023 Glucose [Mass/Vol] 160 mg/dL Normal [facility] Comment on above: Performed By: #### L [id number] ####[facility] ([facility] [place] [address] HbA1c (Bld) [Mass fraction] 7.2 % High 4.0-6.0 [facility] Comment on above: Performed By: #### L [id number] ####[facility] ([facility] [place] [address] LACTIC ACID WITH 4 HOUR REFL EXon 06-05-2023 LACTATE (MMOL/L) IN SER/PLAS 1.1 mmol/L Normal 0.5-2.2 [facility] Comment on above: Performed By: #### L [id number] #### [facility] ([facility] [address] [place] [address] LEGIONELLA ANTIGEN, URINEon 06-05-2023 LEGIONELLA AG, UR Negative Normal [facility] Comment on above: Result Comment: L. p neumophila serogroup 1 antigen not detected. A negative result does not exclude infection with Leginella pnemophila serogroup 1 nor does it rule out other microbial-caused respiratory infections of disease caused by other serogroups of Legionella pneumophila. Test Performed by [facility] [address] [place] [address] - Released 06/05/2023 12:36 Performed By: #### L [id number] #### [facility] [address] [place] [address] LIPID PANELon 06-05-2023 CHOL/HDL 1.6 mg/dL Normal [facility] Comment on above: Performed By: #### L [id number] #### [facility] ([facility] [address] [place] [address] Cholesterol [Mass/Vol] 74 mg/dL Low 120-200 [facility] Comment on above: Performed By: #### L [id number] #### [facility] ([facility] [address] [place] [address] Magnesium [Mass/Vol] 65 mg/dL Normal 40-149 [facility] Comment on above: Result Comment: TRIG LYCERIDE REFERENCE RANGE: 20 YEARS AND OLDER CARDIOVASCULAR RISK LESS THAN 150 mg/dL LOW RISK 150 TO 199 mg/dL BORDERLINE RISK 200 mg/dL AND GREATER HIGH RISK Performed By: #### L [id number] #### [facility] ([facility] [address] [place] [address] Magnesium [Mass/Vol] 14 mg/dL Normal 0-160 [facility] Comment on above: Performed By: #### L [id number] #### [facility] ([facility]) [address] [place] [address] Magnesium [Mass/Vol] 47 mg/dL Normal 23-92 [facility] Comment on above: Performed By: #### L [id number] #### [facility] ([facility]) [address] [place] [address] NON HDL CHOL. (LDL+VLDL) 27 Normal [facility] Comment on above: Performed By: #### L [id number] #### [facility] ([facility] [address] [place] [address] TOTAL VLDL-C 13 mg/dL Normal 0-40 [facility] Comment on above: Performed By: #### L [id number] #### [facility] ([facility] [address] [place] [address] MAGNESIUMon 06-05-2023 Magnesium [Mass/Vol] 1.1 mg/dL Low 1.9-2.7 [facility] Comment on above: Performed By: #### L [id number] #### [facility] ([facility] [address] [place] [address] PHOSPHORUSon 06-05-2023 Magnesium [Mass/Vol] 2.8 mg/dL Normal 2.5-5.0 [facility] Comment on above: Performed By: #### L [id number] #### [facility] ([facility] [address] [place] [address] PROTIME-INRon 06-05-2023 INR IN PPP BY COAGULATION ASSAY 1.25 High 0.90-1.10 [facility] Comment on above: Result Comment: [...] 1995;[id number]. Performed By: #### L [id number] #### [facility] ([facility]) [address] [place] [address] PROTHROMBIN TIME (PT) IN PPP BY COAGULATION ASSAY 15.7 Seconds High 12.3-14.8 [facility] Comment on above: Performed By: #### L [id number] #### [facility] ([facility]) [address] [place] [address] TOXICOLOGY PANEL URINEon AMPHETAMINE+METHAMPHE TAMINE SCREEN (PRESENCE) IN URINE Negative Normal Negative [facility] Comment on above: Performed By: #### L [id number] ####[facility] ([facility])[address] [place] [address] BARBITURATES PRESENCE IN URINE BY SCREEN METHOD Negative Normal Negative [facility] Comment on above: Performed By: #### L [id number] ####[facility] ([facility])[address] [place] [address] Benzodiazepines Ql (U) Negative Normal Negative [facility] Comment on above: Performed By: #### L [id number] ####[facility] ([facility])[address] [place] [address] CANNABINOID (PRESENCE) IN URINE BY SCREEN METHOD Negative Normal Negative [facility] Comment on above: Performed By: #### L [id number] ####[facility] ([facility])[address] [place] [address] Cocaine Ql (U) Negative Normal Negative [facility] Comment on above: Performed By: #### L [id number] ####[facility] ([facility])[address] [place] [address] METHADONE (PRESENCE) IN URINE BY SCREEN METHOD Negative Normal Negative [facility] Comment on above: Performed By: #### L [id number] ####[facility] ([facility])[address] [place] [address] OPIATES (PRESENCE) IN URINE BY SCREEN METHOD Positive Abnormal Negative [facility] Comment on above: Performed By: #### L [id number] ####[facility] ([facility] [place] [address] PHENCYCLIDINE PRESENCE IN URINE BY SCREEN METHOD Negative Normal Negative [facility] Comment on above: Performed By: #### L [id number] ####[facility] ([facility] [place] [address] Propoxyphene Screen Ql (U) Negative Normal Negative [facility] Comment on above: Performed By: #### L [id number] ####[facility] ([facility] [place] [address] TRICYCLIC ANTIDEPRESSANTS (PRESENCE) IN URINE Negative Normal Negative [facility] Comment on above: Performed By: #### L [id number] ####[facility] ([facility] [place] [address] TROPONIN Ion 06-05-2023 Troponin I.cardiac [Mass/Vol] 0.04 ng/mL Normal 0.00-0.04 [facility] Comment on above: Performed By: #### L [id number] #### [facility] ([facility] [address] [place] [address] Troponin I.cardiac [Mass/Vol] 0.06 ng/mL High 0.00-0.04 [facility] Comment on above: Performed By: #### L [id number] ####[facility] ([facility] [place] [address] TSH3 REFLEX TO FT4on 023 THYROTROPIN (MIU/L) IN SER/PLAS BY DETECTION LIMIT <= 0.05 MIU/L 1.46 mIU/L Normal 0.34-5.60 [facility] Comment on above: Performed By: #### L [id number] ####[facility] ([facility] [place] [address] URINALYSIS MICROSCOPIC WITH REFLEX CULTUREon 06-05-2023 CASTS IN URINE Normal [facility] Comment on above: Performed By: #### L [id number] ####[facility] ([facility] [place] [address] CRYSTALS IN URINE Normal [facility] Comment on above: Performed By: #### L [id number] ####[facility] ([facility])[address] [place] [address] OTHER MICROSCOPIC ELEMENTS Normal [facility] Comment on above: Performed By: #### L [id number] ####[facility] ([facility])[address] [place] [address] RBC (#/HPF) IN URINE SEDIMENT 6-10 Abnormal None Seen [facility] Comment on above: Performed By: #### L [id number] ####[facility] ([facility])[address] [place] [address] SQUAMOUS EPITHELIAL CELLS (#/HPF) IN URINE SEDIMENT Many Abnormal None Seen, Occasional [facility] Comment on above: Performed By: #### L [id number] ####[facility] ([facility] [place] [address] WBC (LEUKOCYTE) (#/HPF) IN URINE SEDIMENT >100 Abnormal None Seen [facility] Comment on above: Performed By: #### L [id number] ####[facility] ([facility])[address] [place] [address] URINALYSIS WITH REFLEX CULTU REon 06-05-2023 BILIRUBIN, TOTAL PRESENCE IN URINE Negative Normal Negative [facility] Comment on above: Performed By: #### L [id number] ####[facility] ([facility])[address] [place] [address] Clarity (U) Clear Normal Clear [facility] Comment on above: Performed By: #### L [id number] ####[facility] ([facility])[address] [place] [address] Color (U) Yellow Normal Yellow [facility] Comment on above: Performed By: #### L [id number] ####[facility] ([facility])[address] [place] [address] Glucose (U) [Mass/Vol] Negative Normal Negative [facility] Comment on above: Performed By: #### L [id number] ####[facility] ([facility] [place] [address] HEMOGLOBIN PRESENCE IN URINE Moderate Abnormal Negative [facility] Comment on above: Performed By: #### L [id number] ####[facility] ([facility] [place] [address] Ketones Ql (U) Trace Abnormal Negative [facility] Comment on above: Performed By: #### L [id number] ####[facility] ([facility] [place] [address] LEUKOCYTE ESTERASE PRESENCE IN URINE BY TEST STRIP Large Abnormal Negative [facility] Comment on above: Performed By: #### L [id number] ####[facility] ([facility] [place] [address] NITRITE PRESENCE IN URINE Positive Abnormal Negative [facility] Comment on above: Performed By: #### L [id number] ####[facility] ([facility] [place] [address] pH (U) 6.0 [pH] Normal 5.0-8.0 [facility] Comment on above: Performed By: #### L [id number] ####[facility] ([facility] [place] [address] Protein (U) [Mass/Vol] 30 mg/dL Abnormal Negative [facility] Comment on above: Performed By: #### L [id number] ####[facility] ([facility] [place] [address] Specific gravity (U) [Rel density] 1.012 Low 1.015-1.020 [facility] Comment on above: Performed By: #### L [id number] ####[facility] ([facility] [place] [address] 30on 06-04-2023 30 The patient is Moderately Stable - Low risk of patient condition declining or worsening The patient's goals for the shift include comfort The clinical goals for the shift include VSS Normal [facility] CT CHEST WO CONon 10-31-2022 CT CHEST [...] REYNOSO Date: 2022-10-31 17:34 Normal [facility] HEMOGLOBINon 10-31-2022 Hemoglobin (Bld) [Mass/Vol] 11.8 g/dL Critically low 12.0-16.0 [facility] Comment on above: Performed By: #### C VDTB #### [facility] [address] [address] [address] Kayley Hatfield BUN 10-10-2022 Urea nitrogen [Mass/Vol] 13.0 mg/dL Normal 7.0-18.0 [facility] Comment on above: Performed By: #### L DH #### [facility] [address] [address] [address] Kayley Hatfield CALCIUMon 10-10-2022 Calcium [Mass/Vol] 9.7 mg/dL Normal 8.5-10.1 [facility] Comment on above: Performed By: #### L #### [facility] [address] [place] [address] Dr. Kayley Hatfield CREATININEon 10-10-2022 Creatinine [Mass/Vol] 1.19 mg/dL Critically high 0.55-1.02 [facility] Comment on above: Performed By: #### L DH #### [facility] [address] [place] [address] Dr. Kayley Hatfield EGFR-AF VINCENTIAN 55 mL/min/1.73m2 Critically low >=60 [facility] Comment on above: Performed By: #### L DH #### [facility] [address] [place] [address] Dr. Kayley Hatfield EGFR-NON AF VINCENTIAN 46 mL/min/1.73m2 Critically low >=60 [facility] Comment on above: Performed By: #### L DH #### [facility] [address] [place] [address] Dr. Kayley Hatfield CRPon 10-10-2022 CRP [Mass/Vol] mg/L Normal <=1.0 [facility] Comment on above: Performed By: #### L DH #### [facility] [address] [place] [address] Dr. Kayley Hatfield MAGNESIUMon 10-10-2022 Magnesium [Mass/Vol] 1.7 mg/dL Critically low 1.8-2.4 [facility] Comment on above: Performed By: #### L DH #### [facility] [address] [place] [address] Dr. Kayley Hatfield PHOSPHORUSon 10-10-2022 Phosphate [Mass/Vol] 4.0 mg/dL Normal 2.6-4.7 [facility] Comment on above: Performed By: #### L DH #### [facility] [address] [place] [address] Dr. Kayley Hatfield SED RATE WESTERGRENon 2022 SED RATE 25 mm/hr Normal <=30 [facility] Comment on above: Performed By: #### P RTELEC #### [facility] [address] [place] [address] Dr. Kayley Hatfield CBC AUTO DIFFon 05-01-2022 BASO # 0.1 103/ul Normal 0.0-0.1 [facility] Comment on above: Performed By: #### P RBC #### [facility] [address] [place] [address] Dr. Kayley Hatfield Basophils/100 WBC (Bld) 0.5 % Normal 0.2-2.0 [facility] Comment on above: Performed By: #### P RBC #### [facility] [address] [place] [address] Dr. Kayley Hatfield EO # 0.2 103/ul Normal 0.0-0.7 [facility] Comment on above: Performed By: #### P RBC #### [facility] [address] [place] [address] Dr. Kayley Hatfield Eosinophils/100 WBC (Bld) 1.2 % Normal 0.9-7.0 [facility] Comment on above: Performed By: #### P RBC #### [facility] [address] [place] [address] Dr. Kayley Hatfield Erythrocyte distribution width (RBC) [Ratio] 14.9 % Normal 11.0-15.0 [facility] Comment on above: Performed By: #### P RBC #### [facility] [address] [place] [address] Dr. Kayley Hatfield Hematocrit (Bld) [Volume fraction] 34.2 % Critically low 36.0-48.0 [facility] Comment on above: Performed By: #### P RBC #### [facility] [address] [place] [address] Dr. Kayley Hatfield Hemoglobin (Bld) [Mass/Vol] 10.3 g/dL Critically low 12.0-16.0 [facility] Comment on above: Performed By: #### P RBC #### [facility] [address] [place] [address] Dr. Kayley Hatfield IG # 0.19 10e3/ul Critically high 0.00-0.03 [facility] Comment on above: Performed By: #### P RBC #### [facility] [address] [place] [address] Dr. Kayley Hatfield IG % 1.3 % Critically high 0.0-0.5 [facility] Comment on above: Performed By: #### P RBC #### [facility] [address] [place] [address] Dr. Kayley Hatfield LYMPH # 1.1 103/ul Critically low 1.2-3.8 [facility] Comment on above: Performed By: #### P RBC #### [facility] [address] [place] [address] Dr. Kayley Hatfield Lymphocytes/100 WBC (Bld) 7.3 % Critically low 20.5-60.0 [facility] Comment on above: Performed By: #### P RBC #### [facility] [address] [place] [address] Dr. Kayley Hatfield MANUAL DIFF REQ NO Normal [facility] Comment on above: Performed By: #### P RBC #### [facility] [address] [place] [address] Dr. Kayley Hatfield MCH (RBC) [Entitic mass] 28.4 pg Normal 26.7-34.0 [facility] Comment on above: Performed By: #### P RBC #### [facility] [address] [place] [address] Dr. Kayley Hatfield MCHC (RBC) [Mass/Vol] 30.1 g/dL Normal 29.9-35.2 [facility] Comment on above: Performed By: #### P RBC #### [facility] [address] [place] [address] Dr. Kayley Hatfield MCV (RBC) [Entitic vol] 94.2 fL Normal 81.0-99.0 [facility] Comment on above: Performed By: #### P RBC #### [facility] [address] [place] [address] Dr. Kayley Hatfield MONO # 0.6 103/ul Normal 0.3-0.8 [facility] Comment on above: Performed By: #### P RBC #### [facility] [address] [place] [address] Dr. Kayley Hatfield Monocytes/100 WBC (Bld) 4.0 % Normal 1.7-12.0 [facility] Comment on above: Performed By: #### P RBC #### [facility] [address] [address] [address] Kayley Hatfield NEUT # 12.5 103/ul Critically high 1.4-6.5 [facility] Comment on above: Performed By: #### P RBC #### [facility] [address] [address] [address] Kayley Hatfield Neutrophils/100 WBC (Bld) 85.7 % Critically high 43.0-75.0 [facility] Comment on above: Performed By: #### P RBC #### [facility] [address] [address] [address] Kayley Hatfield Platelet mean volume (Bld) [Entitic vol] 8.5 fL Critically low 9.5-13.5 [facility] Comment on above: Performed By: #### P RBC #### [facility] [address] [address] [address] Kayley Hatfield PLT 574 103/ul Critically high 150-450 [facility] Comment on above: Performed By: #### P RBC #### [facility] [address] [address] [address] Kayley Hatfield RBC 3.63 106/ul Critically low 4.20-5.40 [facility] Comment on above: Performed By: #### P RBC #### [facility] [address] [address] [address] Kayley Hatfield WBC 14.6 103/ul Critically high 4.0-11.0 [facility] Comment on above: Performed By: #### P RBC #### [facility] [address] [address] [address] Kayley Hatfield MAGNESIUMon 05-01-2022 Magnesium [Mass/Vol] 2.1 mg/dL Normal 1.8-2.4 [facility] Comment on above: Performed By: #### O BSCRN #### [facility] [address] [address] [address] Kayley Hatfield PROF CHEM 8 (BAS METB)on Anion gap [Moles/Vol] 8.6 mmol/L Normal [facility] Comment on above: Performed By: #### O BSCRN #### [facility] [address] [place] [address] Dr. Kayley Hatfield Calcium [Mass/Vol] 9.0 mg/dL Normal 8.5-10.1 [facility] Comment on above: Performed By: #### O BSCRN #### [facility] [address] [address] [address] Kayley Hatfield Chloride [Moles/Vol] 101 mmol/L Normal 98-107 [facility] Comment on above: Performed By: #### O BSCRN #### [facility] [address] [place] [address] Dr. Kayley Hatfield CO2 [Moles/Vol] 33.0 mmol/L Critically high 21.0-32.0 [facility] Comment on above: Performed By: #### O BSCRN #### [facility] [address] [place] [address] Dr. Kayley Hatfield Creatinine [Mass/Vol] 0.94 mg/dL Normal 0.55-1.02 [facility] Comment on above: Performed By: #### O BSCRN #### [facility] [address] [place] [address] Dr. Kayley Hatfield EGFR-AF VINCENTIAN >60 Normal >=60 [facility] Comment on above: Performed By: #### O BSCRN #### [facility] [address] [place] [address] Dr. Kayley Hatfield EGFR-NON AF VINCENTIAN >60 Normal >=60 [facility] Comment on above: Performed By: #### O BSCRN #### [facility] [address] [place] [address] Dr. Kayley Hatfield Glucose [Mass/Vol] 143 mg/dL Critically high 74-106 [facility] Comment on above: Performed By: #### O BSCRN #### [facility] [address] [place] [address] Dr. Kayley Hatfield Potassium [Moles/Vol] 4.6 mmol/L Normal 3.5-5.1 [facility] Comment on above: Performed By: #### O BSCRN #### [facility] [address] [place] [address] Dr. Kayley Hatfield Sodium [Moles/Vol] 138 mmol/L Normal 136-145 [facility] Comment on above: Performed By: #### O BSCRN #### [facility] [address] [place] [address] Dr. Kayley Hatfield Urea nitrogen [Mass/Vol] 15.0 mg/dL Normal 7.0-18.0 [facility] Comment on above: Performed By: #### O BSCRN #### [facility] [address] [place] [address] Dr. Kayley Hatfield Urea nitrogen/Creatinine [Mass ratio] 16.0 mg/mg Normal [facility] Comment on above: Performed By: #### O BSCRN #### [facility] [address] [place] [address] Dr. Kayley Hatfield CBC AUTO DIFFon 04-26-2022 BASO # 0.1 103/ul Normal 0.0-0.1 [facility] Comment on above: Performed By: #### P RBC #### [facility] [address] [place] [address] Dr. Kayley Hatfield Basophils/100 WBC (Bld) 0.5 % Normal 0.2-2.0 [facility] Comment on above: Performed By: #### P RBC #### [facility] [address] [place] [address] Dr. Kayley Hatfield EO # 0.2 103/ul Normal 0.0-0.7 [facility] Comment on above: Performed By: #### P RBC #### [facility] [address] [place] [address] Dr. Kayley Hatfield Eosinophils/100 WBC (Bld) 1.8 % Normal 0.9-7.0 [facility] Comment on above: Performed By: #### P RBC #### [facility] [address] [place] [address] Dr. Kayley Hatfield Erythrocyte distribution width (RBC) [Ratio] 14.7 % Normal 11.0-15.0 [facility] Comment on above: Performed By: #### P RBC #### [facility] [address] [place] [address] Dr. Kayley Hatfield Hematocrit (Bld) [Volume fraction] 32.0 % Critically low 36.0-48.0 [facility] Comment on above: Performed By: #### P RBC #### [facility] [address] [place] [address] Dr. Kayley Hatfield Hemoglobin (Bld) [Mass/Vol] 9.9 g/dL Critically low 12.0-16.0 [facility] Comment on above: Performed By: #### P RBC #### [facility] [address] [place] [address] Dr. Kayley Hatfield IG # 0.07 10e3/ul Critically high 0.00-0.03 [facility] Comment on above: Performed By: #### P RBC #### [facility] [address] [place] [address] Dr. Kayley Hatfield IG % 0.6 % Critically high 0.0-0.5 [facility] Comment on above: Performed By: #### P RBC #### [facility] [address] [place] [address] Dr. Kayley Hatfield LYMPH # 1.2 103/ul Normal 1.2-3.8 [facility] Comment on above: Performed By: #### P RBC #### [facility] [address] [place] [address] Dr. Kayley Hatfield Lymphocytes/100 WBC (Bld) 10.9 % Critically low 20.5-60.0 [facility] Comment on above: Performed By: #### P RBC #### [facility] [address] [place] [address] Dr. Kayley Hatfield MANUAL DIFF REQ NO Normal [facility] Comment on above: Performed By: #### P RBC #### [facility] [address] [place] [address] Dr. Kayley Hatfield MCH (RBC) [Entitic mass] 28.4 pg Normal 26.7-34.0 [facility] Comment on above: Performed By: #### P RBC #### [facility] [address] [place] [address] Dr. Kayley Hatfield MCHC (RBC) [Mass/Vol] 30.9 g/dL Normal 29.9-35.2 [facility] Comment on above: Performed By: #### P RBC #### [facility] [address] [place] [address] Dr. Kayley Hatfield MCV (RBC) [Entitic vol] 92.0 fL Normal 81.0-99.0 [facility] Comment on above: Performed By: #### P RBC #### [facility] [address] [place] [address] Dr. Kayley Hatfield MONO # 1.4 103/ul Critically high 0.3-0.8 [facility] Comment on above: Performed By: #### P RBC #### [facility] [address] [place] [address] Dr. Kayley Hatfield Monocytes/100 WBC (Bld) 11.9 % Normal 1.7-12.0 [facility] Comment on above: Performed By: #### P RBC #### [facility] [address] [place] [address] Dr. Kayley Hatfield NEUT # 8.4 103/ul Critically high 1.4-6.5 [facility] Comment on above: Performed By: #### P RBC #### [facility] [address] [place] [address] Dr. Kayley Hatfield Neutrophils/100 WBC (Bld) 74.3 % Normal 43.0-75.0 [facility] Comment on above: Performed By: #### P RBC #### [facility] [address] [place] [address] Dr. Kayley Hatfield Platelet mean volume (Bld) [Entitic vol] 8.8 fL Critically low 9.5-13.5 [facility] Comment on above: Performed By: #### P RBC #### [facility] [address] [place] [address] Dr. Kayley Hatfield PLT 953 103/ul Critically high 150-450 [facility] Comment on above: Performed By: #### P RBC #### [facility] [address] [place] [address] Dr. Kayley Hatfield RBC 3.48 106/ul Critically low 4.20-5.40 [facility] Comment on above: Performed By: #### P RBC #### [facility] [address] [place] [address] Dr. Kalyey Hatfield WBC 11.3 103/ul Critically high 4.0-11.0 [facility] Comment on above: Performed By: #### P RBC #### [facility] [address] [place] [address] Dr. Kayley Hatfield POINT OF CARE GLUCOSEon 04-08 Glucose [Mass/Vol] 225 mg/dL Critically high 74-106 [facility] Comment on above: Performed By: #### B [id number] #### [facility] [address] [place] [address] Dr. Kayley Hatfield PROF CHEM 8 (BAS METB)on Anion gap [Moles/Vol] 10.7 mmol/L Normal [facility] Comment on above: Performed By: #### P RBC #### [facility] [address] [place] [address] Dr. Kayley Hatfield Calcium [Mass/Vol] 9.2 mg/dL Normal 8.5-10.1 [facility] Comment on above: Performed By: #### P RBC #### [facility] [address] [place] [address] Dr. Kayley Hatfield Chloride [Moles/Vol] 103 mmol/L Normal 98-107 [facility] Comment on above: Performed By: #### P RBC #### [facility] [address] [place] [address] Dr. Kayley Hatfield CO2 [Moles/Vol] 29.2 mmol/L Normal 21.0-32.0 [facility] Comment on above: Performed By: #### P RBC #### [facility] [address] [place] [address] Dr. Kayley Hatfield Creatinine [Mass/Vol] 0.85 mg/dL Normal 0.55-1.02 [facility] Comment on above: Performed By: #### P RBC #### [facility] [address] [address] [address] Kayley Hatfield EGFR-AF VINCENTIAN >60 Normal >=60 [facility] Comment on above: Performed By: #### P RBC #### [facility] [address] [address] [address] Kayley Hatfield EGFR-NON AF VINCENTIAN >60 Normal >=60 [facility] Comment on above: Performed By: #### P RBC #### [facility] [address] [place] [address] Dr. Kayley Hatfield Glucose [Mass/Vol] 81 mg/dL Normal 74-106 [facility] Comment on above: Performed By: #### P RBC #### [facility] [address] [place] [address] Dr. Kayley Hatfield Potassium [Moles/Vol] 3.9 mmol/L Normal 3.5-5.1 [facility] Comment on above: Performed By: #### P RBC #### [facility] [address] [place] [address] Dr. Kayley Hatfield Sodium [Moles/Vol] 139 mmol/L Normal 136-145 [facility] Comment on above: Performed By: #### P RBC #### [facility] [address] [place] [address] Dr. Kayley Hatfield Urea nitrogen [Mass/Vol] 9.0 mg/dL Normal 7.0-18.0 [facility] Comment on above: Performed By: #### P RBC #### [facility] [address] [place] [address] Dr. Kayley Hatfield Urea nitrogen/Creatinine [Mass ratio] 10.6 mg/mg Normal [facility] Comment on above: Performed By: #### P RBC #### [facility] [address] [place] [address] Dr. Kayley Hatfield XR CHEST 2 Von [...] MIGUE REYNOSO Date: 2022-04-26 09:59 Normal [facility] BNPon 04-25-2022 Natriuretic peptide B (Bld) [Mass/Vol] 234.0 pg/mL Normal <=900.0 [facility] Comment on above: Performed By: #### P RTELEC #### [facility] [address] [place] [address] Dr. Kayley Hatfield CBC AUTO DIFFon 04-25-2022 BASO # 0.1 103/ul Normal 0.0-0.1 [facility] Comment on above: Performed By: #### P RBC #### [facility] [address] [address] [address] Kayley Hatfield Basophils/100 WBC (Bld) 0.4 % Normal 0.2-2.0 [facility] Comment on above: Performed By: #### P RBC #### [facility] [address] [place] [address] Dr. Kayley Hatfield EO # 0.2 103/ul Normal 0.0-0.7 [facility] Comment on above: Performed By: #### P RBC #### [facility] [address] [place] [address] Dr. Kayley Hatfield Eosinophils/100 WBC (Bld) 1.0 % Normal 0.9-7.0 [facility] Comment on above: Performed By: #### P RBC #### [facility] [address] [address] [address] Kayley Hatfield Erythrocyte distribution width (RBC) [Ratio] 14.8 % Normal 11.0-15.0 [facility] Comment on above: Performed By: #### P RBC #### [facility] [address] [place] [address] Dr. Kayley Hatfield Hematocrit (Bld) [Volume fraction] 35.4 % Critically low 36.0-48.0 [facility] Comment on above: Performed By: #### P RBC #### [facility] [address] [place] [address] Dr. Kayley Hatfield Hemoglobin (Bld) [Mass/Vol] 10.9 g/dL Critically low 12.0-16.0 [facility] Comment on above: Performed By: #### P RBC #### [facility] [address] [place] [address] Dr. Kayley Hatfield IG # 0.08 10e3/ul Critically high 0.00-0.03 [facility] Comment on above: Performed By: #### P RBC #### [facility] [address] [place] [address] Dr. Kayley Hatfield IG % 0.5 % Normal 0.0-0.5 [facility] Comment on above: Performed By: #### P RBC #### [facility] [address] [place] [address] Dr. Kayley Hatfield LYMPH # 1.2 103/ul Normal 1.2-3.8 [facility] Comment on above: Performed By: #### P RBC #### [facility] [address] [place] [address] Dr. Kayley Hatfield Lymphocytes/100 WBC (Bld) 7.4 % Critically low 20.5-60.0 [facility] Comment on above: Performed By: #### P RBC #### [facility] [address] [place] [address] Dr. Kayley Hatfield MANUAL DIFF REQ NO Normal [facility] Comment on above: Performed By: #### P RBC #### [facility] [address] [address] [address] Kayley Hatfield MCH (RBC) [Entitic mass] 27.9 pg Normal 26.7-34.0 [facility] Comment on above: Performed By: #### P RBC #### [facility] [address] [address] [address] Kayley Hatfield MCHC (RBC) [Mass/Vol] 30.8 g/dL Normal 29.9-35.2 [facility] Comment on above: Performed By: #### P RBC #### [facility] [address] [address] [address] Kayley Hatfield MCV (RBC) [Entitic vol] 90.5 fL Normal 81.0-99.0 [facility] Comment on above: Performed By: #### P RBC #### [facility] [address] [place] [address] Dr. Kayley Hatfield MONO # 1.5 103/ul Critically high 0.3-0.8 [facility] Comment on above: Performed By: #### P RBC #### [facility] [address] [address] [address] Kayley Hatfield Monocytes/100 WBC (Bld) 8.7 % Normal 1.7-12.0 [facility] Comment on above: Performed By: #### P RBC #### [facility] [address] [address] [address] Kayley Hatfield NEUT # 13.8 103/ul Critically high 1.4-6.5 [facility] Comment on above: Performed By: #### P RBC #### [facility] [address] [address] [address] Kayley Hatfield Neutrophils/100 WBC (Bld) 82.0 % Critically high 43.0-75.0 [facility] Comment on above: Performed By: #### P RBC #### [facility] [address] [place] [address] Dr. Kayley Hatfield Platelet mean volume (Bld) [Entitic vol] 8.9 fL Critically low 9.5-13.5 [facility] Comment on above: Performed By: #### P RBC #### [facility] [address] [place], [place] [address] Dr. Kayley Hatfield PLT 1076 103/ul Critically high 150-450 [facility] Comment on above: Performed By: #### P RBC #### [facility] [address] [place], [place] [address] Dr. Kayley Hatfield RBC 3.91 106/ul Critically low 4.20-5.40 [facility] Comment on above: Performed By: #### P RBC #### [facility] [address] [place], [place] [address] Dr. Kayley Hatfield WBC 16.8 103/ul Critically high 4.0-11.0 [facility] Comment on above: Performed By: #### P RBC #### [facility] [address] [place], [place] [address] HEAD WO CONon [...] MIGUE REYNOSO Date: 2022-04-25 14:59 Normal [facility] CTA CHEST WO W CONon 022 CTA [...] MIGUE REYNOSO Date: 2022-04-25 15:18 Normal [facility] Covid-19 PCR (CVDTB)on 04-08 SARS-CoV-2 (COVID-19) RNA ELBA+probe Ql (Unsp spec) Not detected Normal NOT DETECTED [facility] Comment on above: Result Comment: When diagnostic [...] for this test is supported by the [place] of [employer] and Human Service's declaration that [...] used). Performed By: #### C VDTBH #### [facility] [address] [place] [address] Dr. Kayley Hatfield ER URINE PROFILEon 2 Bilirubin Ql (U) Negative Normal NEGATIVE [facility] Comment on above: Performed By: #### C VDTBH #### [facility] [address] [place] [address] Dr. Kayley Hatfield Clarity (U) CLEAR Normal CLEAR [facility] Comment on above: Performed By: #### C VDTBH #### [facility] [address] [place] [address] Dr. Kayley Hatfield Color (U) LT. YELLOW Normal YELLOW [facility] Comment on above: Performed By: #### C VDTBH #### [facility] [address] [place] [address] Dr. Kayley Hatfield ERUAHD A micrscopic examination will be performed if indicated. Normal [facility] Comment on above: Performed By: #### C VDTBH #### [facility] [address] [place] [address] Dr. Kayley Hatfield Glucose Ql (U) Negative Normal NEGATIVE [facility] Comment on above: Performed By: #### C VDTBH #### [facility] [address] [address] [address] Kayley Hatfield Hemoglobin Ql (U) TRACE-INTACT Abnormal NEGATIVE [facility] Comment on above: Performed By: #### C VDTBH #### [facility] [address] [place] [address] Dr. Kayley Hatfield Ketones Ql (U) Negative Normal NEGATIVE [facility] Comment on above: Performed By: #### C VDTBH #### [facility] [address] [place] [address] Dr. Kayley Hatfield LEUKOCYTES Negative Normal NEGATIVE [facility] Comment on above: Performed By: #### C VDTBH #### [facility] [address] [place] [address] Dr. Kayley Hatfield Nitrite Ql (U) Negative Normal NEGATIVE [facility] Comment on above: Performed By: #### C VDTBH #### [facility] [address] [place] [address] Dr. Kayley Hatfield pH (U) 8.0 [pH] Normal 5-9 [facility] Comment on above: Performed By: #### C VDTBH #### [facility] [address] [place] [address] Dr. Kayley Hatfield SPEC GRAVITY 1.010 Normal 1.005-<=1.025 [facility] Comment on above: Performed By: #### C VDTBH #### [facility] [address] [place] [address] Dr. Kayley Hatfield UA PROTEIN Negative Normal NEGATIVE/ TRACE [facility] Comment on above: Performed By: #### C VDTBH #### [facility] [address] [place] [address] Dr. Kayley Hatfield UR MICRO IND INDICATED Normal [facility] Comment on above: Performed By: #### C VDTBH #### [facility] [address] [place] [address] Dr. Kayley Hatfield Urobilinogen Qn (U) 0.2 {Lu'U}/dL Normal 0.2 - 1. 0 [facility] Comment on above: Performed By: #### C VDTBH #### [facility] [address] [place] [address] Dr. Kayley Hatifeld LACTATE/LACTIC ACIDon 2021 Lactate [Moles/Vol] 1.1 mmol/L Normal 0.4-1.9 [facility] Comment on above: Performed By: #### P RTELEC #### [facility] [address] [place] [address] Dr. Kayley Hatfield PH VENOUS BLOODon 04-25-2022 PCO2 VENOUS 54.5 mmHg Critically high 40.0-52.0 [facility] Comment on above: Performed By: #### L DH #### [facility] [address] [place] [address] Dr. Kayley Hatfield pH VENOUS 7.385 Normal 7.330-7.430 [facility] Comment on above: Performed By: #### L DH #### [facility] [address] [place] [address] Dr. Kayley Hatfield POINT OF CARE GLUCOSEon 04-08 Glucose [Mass/Vol] 91 mg/dL Normal 74-106 [facility] Comment on above: Performed By: #### O BSCRN #### [facility] [address] [place] [address] Dr. Kayley Hatfield Glucose [Mass/Vol] 116 mg/dL Critically high 74-106 [facility] Comment on above: Performed By: #### O BSCRN #### [facility] [address] [place] [address] Dr. Kayley Hatfield PROF 14(COMP METB)on 022 Albumin [Mass/Vol] 2.7 g/dL Critically low 3.4-5.0 [facility] Comment on above: Performed By: #### O BSCRN #### [facility] [address] [place] [address] Dr. Kayley Hatfield Albumin/Globulin [Mass ratio] 0.6 {ratio} Normal [facility] Comment on above: Performed By: #### O BSCRN #### [facility] [address] [place] [address] Dr. Kayley Hatfield ALP [Catalytic activity/Vol] 132 U/L Critically high 46-116 [facility] Comment on above: Performed By: #### O BSCRN #### [facility] [address] [address] [address] Kayley Hatfield ALT [Catalytic activity/Vol] 21 U/L Normal 14-59 [facility] Comment on above: Performed By: #### O BSCRN #### [facility] [address] [address] [address] Kayley Hatfield Anion gap [Moles/Vol] 8.1 mmol/L Normal [facility] Comment on above: Performed By: #### O BSCRN #### [facility] [address] [place] [address] Dr. Kayley Hatfield AST [Catalytic activity/Vol] 23 U/L Normal 15-37 [facility] Comment on above: Performed By: #### O BSCRN #### [facility] [address] [place] [address] Dr. Kayley Hatfield Bilirubin [Mass/Vol] 0.3 mg/dL Normal 0.2-1.0 [facility] Comment on above: Performed By: #### O BSCRN #### [facility] [address] [place] [address] Dr. Kayley Hatfield Calcium [Mass/Vol] 9.4 mg/dL Normal 8.5-10.1 [facility] Comment on above: Performed By: #### O BSCRN #### [facility] [address] [place] [address] Dr. Kayley Hatfield Chloride [Moles/Vol] 100 mmol/L Normal 98-107 [facility] Comment on above: Performed By: #### O BSCRN #### [facility] [address] [address] [address] Kayley Hatfield CO2 [Moles/Vol] 31.8 mmol/L Normal 21.0-32.0 [facility] Comment on above: Performed By: #### O BSCRN #### [facility] [address] [place] [address] Dr. Kayley Hatfield Creatinine [Mass/Vol] 0.79 mg/dL Normal 0.55-1.02 [facility] Comment on above: Performed By: #### O BSCRN #### [facility] [address] [address] [address] Kayley Hatfield EGFR-AF VINCENTIAN >60 Normal >=60 [facility] Comment on above: Performed By: #### O BSCRN #### [facility] [address] [address] [address] Kayley Hatfield EGFR-NON AF VINCENTIAN >60 Normal >=60 [facility] Comment on above: Performed By: #### O BSCRN #### [facility] [address] [address] [address] Kayley Hatfield Globulin (S) [Mass/Vol] 4.2 g/dL Normal [facility] Comment on above: Performed By: #### O BSCRN #### [facility] [address] [place] [address] Dr. Kayley Hatfield Glucose [Mass/Vol] 134 mg/dL Critically high 74-106 [facility] Comment on above: Performed By: #### O BSCRN #### [facility] [address] [place] [address] Dr. Kayley Hatfield Potassium [Moles/Vol] 3.9 mmol/L Normal 3.5-5.1 [facility] Comment on above: Performed By: #### O BSCRN #### [facility] [address] [place] [address] Dr. Kayley Hatfield Protein [Mass/Vol] 6.9 g/dL Normal 6.4-8.2 [facility] Comment on above: Performed By: #### O BSCRN #### [facility] [address] [address] [address] Kayley Hatfield Sodium [Moles/Vol] 136 mmol/L Normal 136-145 [facility] Comment on above: Performed By: #### O BSCRN #### [facility] [address] [address] [address] Kayley Hatfield Urea nitrogen [Mass/Vol] 10.0 mg/dL Normal 7.0-18.0 [facility] Comment on above: Performed By: #### O BSCRN #### [facility] [address] [place] [address] Dr. Kayley Hatfield Urea nitrogen/Creatinine [Mass ratio] 12.7 mg/mg Normal [facility] Comment on above: Performed By: #### O BSCRN #### [facility] [address] [place] [address] Dr. Kayley Hatfield PROTIMEon 04-25-2022 INR Coag (PPP) [Relative time] 1.08 {INR} Normal [facility] Comment on above: Performed By: #### P RTELEC #### [facility] [address] [place] [address] Dr. Kayley Hatfield INR GUIDELINES SEE BELOW Normal [facility] Comment on above: Result Comment: JOAQUIM RED INR: 2.0 - 3.0 CONDITIONS NOT LISTED BELOW 2.5 - 3.5 FOR PROSTHETIC HEART VALVE REPLACEMENT 2.5 - 3.5 RECURRENT THROMBOSIS Performed By: #### P RTELEC #### [facility] [address] [place] [address] Dr. Kayley Hatfield PT Coag (PPP) [Time] 11.6 s Normal 9.0-11.6 [facility] Comment on above: Performed By: #### P RTELEC #### [facility] [address] [place] [address] Dr. Kayley Hatfield PTTon 04-25-2022 aPTT Coag (Bld) [Time] 31.1 s Normal 22.3-36.2 [facility] Comment on above: Performed By: #### P RTELEC #### [facility] [address] [place] [address] Dr. Kayley Hatfield TROPONIN, HIGH SENSITIVITYon 04-25-2022 HSTROP 9.6 pg/mL Normal 4.0-51.3 [facility] Comment on above: Result Comment: CUT- OFF POINTS HAVE BEEN ESTABLISHED BASED ON THE FOURTH UNIVERSAL DEFINITIONS OF MYOCARDIAL INFARCTION. THE UPPER REFERENCE LIMIT (URL) OF TROPONIN, DEFINED THE 99TH PERCENTILE OF cTnI DISTRIBUTION IN A REFERENCE POPULATION, HAS BEEN CONFIRMED THE DECISION THRESHOLD FOR RI DIAGNOSIS. Performed By: #### P RTELEC #### [facility] [address] [place] [address] Dr. Kayley Hatfield TSHon 04-25-2022 TSH 1.431 uIU/mL Normal 0.358-3.740 [facility] Comment on above: Performed By: #### P RTELEC #### [facility] [address] [place] [address] Dr. Kayley Hatfield URINE MICROSCOPIC ONLYon BACTERIA NONE SEEN Normal NONE SEEN [facility] Comment on above: Performed By: #### C VDTBH #### [facility] [address] [place] [address] Dr. Kayley Hatfield Bacteria identified Cx Nom (U) NOT INDICATED Normal [facility] Comment on above: Performed By: #### C VDTBH #### [facility] [address] [place] [address] Dr. Kayley Hatfield CAST NONE SEEN Normal NONE SEEN [facility] Comment on above: Performed By: #### C VDTBH #### [facility] [address] [place] [address] Dr. Kayley Hatfield Crystals LM Nom (Urine sed) NONE SEEN Normal NONE SEEN [facility] Comment on above: Performed By: #### C VDTBH #### [facility] [address] [place] [address] Dr. Kayley Hatfield Epithelial cells LM Ql (Urine sed) FEW Abnormal NONE SEEN /RARE [facility] Comment on above: Performed By: #### C VDTBH #### [facility] [address] [place] [address] Dr. Kayley Hatfield MUCOUS NONE SEEN Normal NONE SEEN [facility] Comment on above: Performed By: #### C VDTBH #### [facility] [address] [place] [address] Dr. Kayley Hatfield RBC 2-5 Abnormal 0-2 [facility] Comment on above: Performed By: #### C VDTBH #### [facility] [address] [place] [address] Dr. Kayley Hatfield WBC NONE SEEN Normal NONE SEEN [facility] Comment on above: Performed By: #### C VDTBH #### [facility] [address] [place] [address] Dr. Kayley Hatfield IMMUNOFIXATION(KENNETH),PROTEIN ELEC(PE),[facility] 03-31-2022 Albumin [Mass/Vol] 3.6 g/dL Normal 2.9-4.4 [facility] Comment on above: Performed By: #### B [id number] #### [facility] [address] [place] [address] Dr. Kayley Hatfield Albumin/Globulin [Mass ratio] 1.6 {ratio} Normal 0.7-1.7 [facility] Comment on above: Performed By: #### B [id number] #### [facility] [address] [place] [address] Dr. Kayley Hatfield Ufdtt-6-Szxkeuvr 0.3 g/dL Normal 0.0-0.4 [facility] Comment on above: Performed By: #### B [id number] #### [facility] [address] [place] [address] Dr. Kayley Hatfield Cqipv-1-Xgragahg 0.8 g/dL Normal 0.4-1.0 [facility] Comment on above: Performed By: #### B [id number] #### [facility] [address] [place] [address] Dr. Kayley Hatfield Beta Globulin 1.0 g/dL Normal 0.7-1.3 [facility] Comment on above: Performed By: #### B [id number] #### [facility] [address] [place] [address] Dr. Kayley Hatfield Free Berwind Lt Chains,S 16.0 mg/L Normal 3.3-19.4 [facility] Comment on above: Performed By: #### B [id number] #### [facility] [address] [place] [address] Dr. Kayley Hatfield Free Lambda Lt Chains,S 10.1 mg/L Normal 5.7-26.3 [facility] Comment on above: Performed By: #### B [id number] #### [facility] [address] [address] [address] Kayley Hatfield Gamma Globulin 0.4 g/dL Normal 0.4-1.8 [facility] Comment on above: Performed By: #### B [id number] #### [facility] [address] [address] [address] Kayley Hatfield Globulin (S) [Mass/Vol] 2.4 g/dL Normal 2.2-3.9 [facility] Comment on above: Performed By: #### B [id number] #### [facility] [address] [address] [address] Kayley Hatfield Immunofixation Result, Serum Comment Normal [facility] Comment on above: Result Comment: No m onoclonality detected. Performed By: #### B LDCX1 #### [facility] [address] [place] [address] Dr. Kayley Hatfield Immunoglobulin A, Qn, Serum 128 mg/dL Normal 87-352 [facility] Comment on above: Performed By: #### B [id number] #### [facility] [address] [address] [address] Kayley Hatfield Immunoglobulin G, Qn, Serum 487 mg/dL Critically low 586-1602 [facility] Comment on above: Performed By: #### B LDCX1 #### [facility] [address] [place] [address] Dr. Kayley Hatfield Immunoglobulin M, Qn, Serum 38 mg/dL Normal 26-217 [facility] Comment on above: Performed By: #### B [id number] #### [facility] [address] [place] [address] Dr. Kayley Hatfield Berwind/Lambda Ratio, S 1.58 Normal 0.26-1.65 [facility] Comment on above: Performed By: #### B [id number] #### [facility] [address] [address] [address] Kayley Hatfield M-Sandip Not Observed Normal Not Observed [facility] Comment on above: Performed By: #### B [id number] #### [facility] [address] [place] [address] Dr. Kayley Hatfield PDF . Normal [facility] Comment on above: Performed By: #### B [id number] #### [facility] [address] [place] [address] Dr. Kayley Hatfield Please note: Comment Normal [facility] Comment on above: Result Comment: Prot ein electrophoresis scan will follow via computer, mail, or architect internship delivery. Performed By: #### B LDCX1 #### [facility] [address] [place] [address] Dr. Kayley Hatfield Protein [Mass/Vol] 6.0 g/dL Normal 6.0-8.5 [facility] Comment on above: Performed By: #### B [id number] #### [facility] [address] [place] [address] Dr. Kayley Hatfield CBC AUTO DIFFon 03-30-2022 BASO # 0.1 103/ul Normal 0.0-0.1 [facility] Comment on above: Performed By: #### P RBC #### [facility] [address] [place] [address] Dr. Kayley Hatfield Basophils/100 WBC (Bld) 0.4 % Normal 0.2-2.0 [facility] Comment on above: Performed By: #### P RBC #### [facility] [address] [place] [address] Dr. Kayley Hatfield EO # 0.2 103/ul Normal 0.0-0.7 [facility] Comment on above: Performed By: #### P RBC #### [facility] [address] [place] [address] Dr. Kayley Hatfield Eosinophils/100 WBC (Bld) 1.1 % Normal 0.9-7.0 [facility] Comment on above: Performed By: #### P RBC #### [facility] [address] [place] [address] Dr. Kayley Hatfield Erythrocyte distribution width (RBC) [Ratio] 0.0 % Critically low 11.0-15.0 [facility] Comment on above: Performed By: #### P RBC #### [facility] [address] [address] [address] Kayley Hatfield Hematocrit (Bld) [Volume fraction] 24.0 % Critically low 36.0-48.0 [facility] Comment on above: Performed By: #### P RBC #### [facility] [address] [address] [address] Kayley Hatfield Hemoglobin (Bld) [Mass/Vol] 7.2 g/dL Critically low 12.0-16.0 [facility] Comment on above: Performed By: #### P RBC #### [facility] [address] [address] [address] Kayley Hatfield IG # 0.10 10e3/ul Critically high 0.00-0.03 [facility] Comment on above: Performed By: #### P RBC #### [facility] [address] [place] [address] Dr. Kayley Hatfield IG % 0.6 % Critically high 0.0-0.5 [facility] Comment on above: Performed By: #### P RBC #### [facility] [address] [place] [address] Dr. Kayley Hatfield LYMPH # 1.5 103/ul Normal 1.2-3.8 [facility] Comment on above: Performed By: #### P RBC #### [facility] [address] [place] [address] Dr. Kayley Hatfield Lymphocytes/100 WBC (Bld) 9.0 % Critically low 20.5-60.0 [facility] Comment on above: Performed By: #### P RBC #### [facility] [address] [place] [address] Dr. Kayley Hatfield MANUAL DIFF REQ NO Normal [facility] Comment on above: Performed By: #### P RBC #### [facility] [address] [place] [address] Dr. Kayley Hatfield MCH (RBC) [Entitic mass] 27.3 pg Normal 26.7-34.0 [facility] Comment on above: Performed By: #### P RBC #### [facility] [address] [address] [address] Kayley Hatfield MCHC (RBC) [Mass/Vol] 30.0 g/dL Normal 29.9-35.2 [facility] Comment on above: Performed By: #### P RBC #### [facility] [address] [address] [address] Kayley Hatfield MCV (RBC) [Entitic vol] 90.9 fL Normal 81.0-99.0 [facility] Comment on above: Performed By: #### P RBC #### [facility] [address] [address] [address] Kayley Hatfield MONO # 2.3 103/ul Critically high 0.3-0.8 [facility] Comment on above: Performed By: #### P RBC #### [facility] [address] [address] [address] Kayley Hatfield Monocytes/100 WBC (Bld) 13.8 % Critically high 1.7-12.0 [facility] Comment on above: Performed By: #### P RBC #### [facility] [address] [address] [address] Kayley Hatfield NEUT # 12.7 103/ul Critically high 1.4-6.5 [facility] Comment on above: Performed By: #### P RBC #### [facility] [address] [place] [address] Dr. Kayley Hatfield Neutrophils/100 WBC (Bld) 75.1 % Critically high 43.0-75.0 [facility] Comment on above: Performed By: #### P RBC #### [facility] [address] [address] [address] Kayley Hatfield Platelet mean volume (Bld) [Entitic vol] 8.9 fL Critically low 9.5-13.5 [facility] Comment on above: Performed By: #### P RBC #### [facility] [address] [place] [address] Dr. Kayley Hatfield PLT 782 103/ul Critically high 150-450 [facility] Comment on above: Performed By: #### P RBC #### [facility] [address] [address] [address] Kayley Hatfield RBC 2.64 106/ul Critically low 4.20-5.40 [facility] Comment on above: Performed By: #### P RBC #### [facility] [address] [place] [address] Dr. Kayley Hatfield WBC 16.9 103/ul Critically high 4.0-11.0 [facility] Comment on above: Performed By: #### P RBC #### [facility] [address] [place] [address] Dr. Kayley Hatfield PRBC LEUKOREDUCEDon 03-30-20 ABO and Rh group Nom (Bld) Cross Match Result Compatible Unit Blood Type O Pos Unit Number [id number] Status Information Transfused Product ID Red Blood Cells Product Code [id number] Cross Match Result Compatible Unit Blood Type O Pos Unit Number [id number] Status Information Transfused Product ID Red Blood Cells Product Code [id number] Normal [facility] Comment on above: Performed By: #### P RBC #### [facility] [address] [place] [address] Dr. Kayley Hatfield PROF CHEM 8 (BAS METB)on Anion gap [Moles/Vol] 6.9 mmol/L Normal [facility] Comment on above: Performed By: #### P RBC #### [facility] [address] [place] [address] Dr. Kayley Hatfield Calcium [Mass/Vol] 8.7 mg/dL Normal 8.5-10.1 [facility] Comment on above: Performed By: #### P RBC #### [facility] [address] [place] [address] Dr. Kayley Hatfield Chloride [Moles/Vol] 101 mmol/L Normal 98-107 [facility] Comment on above: Performed By: #### P RBC #### [facility] [address] [place] [address] Dr. Kayley Hatfield CO2 [Moles/Vol] 33.3 mmol/L Critically high 21.0-32.0 [facility] Comment on above: Performed By: #### P RBC #### [facility] [address] [address] [address] Kayley Hatfield Creatinine [Mass/Vol] 0.83 mg/dL Normal 0.55-1.02 [facility] Comment on above: Performed By: #### P RBC #### [facility] [address] [address] [address] Kayley Hatfield EGFR-AF VINCENTIAN >60 Normal >=60 [facility] Comment on above: Performed By: #### P RBC #### [facility] [address] [place] [address] Dr. Kayley Hatfield EGFR-NON AF VINCENTIAN >60 Normal >=60 [facility] Comment on above: Performed By: #### P RBC #### [facility] [address] [place] [address] Dr. Kayley Hatfield Glucose [Mass/Vol] 94 mg/dL Normal 74-106 [facility] Comment on above: Performed By: #### P RBC #### [facility] [address] [place] [address] Dr. Kayley Hatfield Potassium [Moles/Vol] 4.2 mmol/L Normal 3.5-5.1 [facility] Comment on above: Performed By: #### P RBC #### [facility] [address] [place] [address] Dr. Kayley Hatfield Sodium [Moles/Vol] 137 mmol/L Normal 136-145 [facility] Comment on above: Performed By: #### P RBC #### [facility] [address] [place] [address] Dr. Kayley Hatfield Urea nitrogen [Mass/Vol] 15.0 mg/dL Normal 7.0-18.0 [facility] Comment on above: Performed By: #### P RBC #### [facility] [address] [place] [address] Dr. Kayley Hatfield Urea nitrogen/Creatinine [Mass ratio] 18.1 mg/mg Normal [facility] Comment on above: Performed By: #### P RBC #### [facility] [address] [place] [address] Dr. Kayley Hatfield PROTEIN ELECTROPHERESISon Albumin [Mass/Vol] 3.4 g/dL Normal 2.9-4.4 [facility] Comment on above: Performed By: #### P RTELEC #### [facility] [address] [place] [address] Dr. Kayley Hatfield Albumin/Globulin [Mass ratio] 1.3 {ratio} Normal 0.7-1.7 [facility] Comment on above: Performed By: #### P RTELEC #### [facility] [address] [place] [address] Dr. Kayley Hatfield Qtqor-5-Guualxrv 0.3 g/dL Normal 0.0-0.4 [facility] Comment on above: Performed By: #### P RTELEC #### [facility] [address] [place] [address] Dr. Kayley Hatfield Tzvbu-2-Clgbnbju 0.8 g/dL Normal 0.4-1.0 [facility] Comment on above: Performed By: #### P RTELEC #### [facility] [address] [place] [address] Dr. Kayley Hatfield Beta Globulin 1.0 g/dL Normal 0.7-1.3 [facility] Comment on above: Performed By: #### P RTELEC #### [facility] [address] [place] [address] Dr. Kayley Hatfield Gamma Globulin 0.5 g/dL Normal 0.4-1.8 [facility] Comment on above: Performed By: #### P RTELEC #### [facility] [address] [place] [address] Dr. Kayley Hatfield Globulin (S) [Mass/Vol] 2.6 g/dL Normal 2.2-3.9 [facility] Comment on above: Performed By: #### P RTELEC #### [facility] [address] [place] [address] Dr. Kayley Hatfield M-Sandip Not Observed Normal Not Observed [facility] Comment on above: Performed By: #### P RTELEC #### [facility] [address] [place] [address] Dr. Kayley Hatfield PDF . Normal [facility] Comment on above: Performed By: #### P RTELEC #### [facility] [address] [address] [address] Kayley Hatfield Please note: Comment Normal [facility] Comment on above: Result Comment: Prot ein electrophoresis scan will follow via computer, mail, or architect internship delivery. Performed By: #### P RTELEC #### [facility] [address] [address] [address] Kayley Hatfield Protein [Mass/Vol] 6.0 g/dL Normal 6.0-8.5 [facility] Comment on above: Performed By: #### P RTELEC #### [facility] [address] [place] [address] Dr. Kayley Hatfield XR CHEST 1 Von [...] TYSHAWN MOORE Date: 2022-03-30 06:17 Normal [facility] CBC W MANUAL DIFFon 03-29-20 22 ANISOCYTOSIS 2+ Normal [facility] Comment on above: Performed By: #### C VDTBH #### [facility] [address] [address] [address] Kayley Hatfield ATYPICAL LYMPH # Normal [facility] Comment on above: Performed By: #### C VDTBH #### [facility] [address] [place] [address] Dr. Kayley Hatfield ATYPICAL LYMPH % Normal [facility] Comment on above: Performed By: #### C VDTBH #### [facility] [address] [place] [address] Dr. Kayley Hatfield BAND # 0.0 103/ul Normal 0.0-0.3 [facility] Comment on above: Performed By: #### C VDTBH #### [facility] [address] [place] [address] Dr. Kayley Hatfield BAND % 0 % Normal 0-5 [facility] Comment on above: Performed By: #### C VDTBH #### [facility] [address] [place] [address] Dr. Kayley Hatfield BASOM # 0.59 103/ul Critically high 0.00-0.10 [facility] Comment on above: Performed By: #### C VDTBH #### [facility] [address] [place] [address] Dr. Kayley Hatfield BASOM % 3.0 % Critically high 0.2-2.0 [facility] Comment on above: Performed By: #### C VDTBH #### [facility] [address] [place] [address] Dr. Kayley Hatfiedl BLAST # Normal [facility] Comment on above: Performed By: #### C VDTBH #### [facility] [address] [place] [address] Dr. Kayley Hatfield BLAST % Normal [facility] Comment on above: Performed By: #### C VDTBH #### [facility] [address] [place] [address] Dr. Kayley Hatfield CORRECTED WBC Normal 4.0-11.0 [facility] Comment on above: Performed By: #### C VDTBH #### [facility] [address] [place] [address] Dr. Kayley Hatfield EOS # 0.40 103/ul Normal 0.00-0.70 [facility] Comment on above: Performed By: #### C VDTBH #### [facility] [address] [address] [address] Kayley Hatfield EOS% 2.0 % Normal 0.9-7.0 [facility] Comment on above: Performed By: #### C VDTBH #### [facility] [address] [place] [address] Dr. Kayley Hatfield HCT 31.1 % Critically low 36.0-48.0 [facility] Comment on above: Performed By: #### C VDTBH #### [facility] [address] [place] [address] Dr. Kayley Hatfield HGB 9.7 g/dl Critically low 12.0-16.0 [facility] Comment on above: Performed By: #### C VDTBH #### [facility] [address] [place] [address] Dr. Kayley Hatfield HYPOCHROMASIA 1+ Normal [facility] Comment on above: Performed By: #### C VDTBH #### [facility] [address] [place] [address] Dr. Kayley Hatfield LYMPHM # 4.75 103/ul Critically high 1.20-3.80 [facility] Comment on above: Performed By: #### C VDTBH #### [facility] [address] [place] [address] Dr. Kayley Hatfield LYMPHM% 24.0 % Normal 20.5-60.0 [facility] Comment on above: Performed By: #### C VDTBH #### [facility] [address] [place] [address] Dr. Kayley Hatfield MCH 27.0 pg Normal 26.7-34.0 [facility] Comment on above: Performed By: #### C VDTBH #### [facility] [address] [place] [address] Dr. Kayley Hatfield MCHC 31.2 g/dl Normal 29.9-35.2 [facility] Comment on above: Performed By: #### C VDTBH #### [facility] [address] [place] [address] Dr. Kayley Hatfield MCV 86.6 fL Normal 81.0-99.0 [facility] Comment on above: Performed By: #### C VDTBH #### [facility] [address] [place] [address] Dr. Kayley Hatfield METAMYELOCYTE # Normal [facility] Comment on above: Performed By: #### C VDTBH #### [facility] [address] [place] [address] Dr. Kayley Hatfield METAMYELOCYTE % Normal [facility] Comment on above: Performed By: #### C VDTBH #### [facility] [address] [place] [address] Dr. Kayley Hatfield MONOM# 0.59 103/ul Normal 0.30-0.80 [facility] Comment on above: Performed By: #### C VDTBH #### [facility] [address] [place] [address] Dr. Kayley Hatfield MONOM% 3.0 % Normal 1.7-12.0 [facility] Comment on above: Performed By: #### C VDTBH #### [facility] [address] [place] [address] Dr. Kayley Hatfield MPV 8.4 fL Critically low 9.5-13.5 [facility] Comment on above: Performed By: #### C VDTBH #### [facility] [address] [place] [address] Dr. Kayley Hatfield MYELOCYTE # Normal [facility] Comment on above: Performed By: #### C VDTBH #### [facility] [address] [place] [address] Dr. Kayley Hatfield MYELOCYTE % Normal [facility] Comment on above: Performed By: #### C VDTBH #### [facility] [address] [place] [address] Dr. Kayley Hatfield NRBC Normal [facility] Comment on above: Performed By: #### C VDTBH #### [facility] [address] [place] [address] Dr. Kayley Hatfield OVALOCYTES SLIGHT Normal [facility] Comment on above: Performed By: #### C VDTBH #### [facility] [address] [address] [address] Kayley Hatfield PLT 950 103/ul Critically high 150-450 [facility] Comment on above: Performed By: #### C VDTBH #### [facility] [address] [address] [address] Kayley Hatfield RBC 3.59 106/ul Critically low 4.20-5.40 [facility] Comment on above: Performed By: #### C VDTBH #### [facility] [address] [address] [address] Kayley Hatfield RDW 26.6 % Critically high 11.0-15.0 [facility] Comment on above: Performed By: #### C VDTBH #### [facility] [address] [address] [address] Kayley Hatfield SEG # 13.46 103/ul Critically high 1.40-6.50 [facility] Comment on above: Performed By: #### C VDTBH #### [facility] [address] [address] [address] Kayley Hatfield SEG % 68.0 % Normal 43.0-75.0 [facility] Comment on above: Performed By: #### C VDTBH #### [facility] [address] [address] [address] Kayley Hatfield WBC 19.8 103/ul Critically high 4.0-11.0 [facility] Comment on above: Performed By: #### C VDTBH #### [facility] [address] [address] [address] Kayley Hatfield PROF CHEM 8 (BAS METB)on Anion gap [Moles/Vol] 8.6 mmol/L Normal [facility] Comment on above: Performed By: #### L DH #### [facility] [address] [address] [address] Kayley Hatfield Calcium [Mass/Vol] 8.9 mg/dL Normal 8.5-10.1 [facility] Comment on above: Performed By: #### L DH #### [facility] [address] [place] [address] Dr. Kayley Hatfield Chloride [Moles/Vol] 102 mmol/L Normal 98-107 [facility] Comment on above: Performed By: #### L DH #### [facility] [address] [address] [address] Kayley Hatfield CO2 [Moles/Vol] 34.3 mmol/L Critically high 21.0-32.0 [facility] Comment on above: Performed By: #### L DH #### [facility] [address] [address] [address] Kayley Hatfield Creatinine [Mass/Vol] 0.86 mg/dL Normal 0.55-1.02 [facility] Comment on above: Performed By: #### L DH #### [facility] [address] [place] [address] Dr. Kayley Hatfield EGFR-AF VINCENTIAN >60 Normal >=60 [facility] Comment on above: Performed By: #### L DH #### [facility] [address] [place] [address] Dr. Kayley Hatfield EGFR-NON AF VINCENTIAN >60 Normal >=60 [facility] Comment on above: Performed By: #### L DH #### [facility] [address] [place] [address] Dr. Kayley Hatfield Glucose [Mass/Vol] 102 mg/dL Normal 74-106 [facility] Comment on above: Performed By: #### L DH #### [facility] [address] [place] [address] Dr. Kayley Hatfield Potassium [Moles/Vol] 3.9 mmol/L Normal 3.5-5.1 [facility] Comment on above: Performed By: #### L DH #### [facility] [address] [place] [address] Dr. Kayley Hatfield Sodium [Moles/Vol] 141 mmol/L Normal 136-145 [facility] Comment on above: Performed By: #### L DH #### [facility] [address] [place] [address] Dr. Kayley Hatfield Urea nitrogen [Mass/Vol] 20.0 mg/dL Critically high 7.0-18.0 [facility] Comment on above: Performed By: #### L #### [facility] [address] [address] [address] Kayley Hatfield Urea nitrogen/Creatinine [Mass ratio] 23.3 mg/mg Normal [facility] Comment on above: Performed By: #### L #### [facility] [address] [address] [address] Kayley Hatfield XR CHEST 1 Von [...] MIGUE REYNOSO Date: 2022-03-29 13:26 Normal [facility] XR CHEST 1 V EXAMINATION: XR CHES [...] MIGUE REYNOSO Date: 2022-03-29 11:37 Normal [facility] XR CHEST 1 V EXAMINATION: XR CHES [...] MIGUE REYNOSO Date: 2022-03-29 07:32 Normal [facility] XR CHEST 1 V EXAM: XR CHEST [...] ASAEL ANAND Date: 2022-03-28 22:40 Normal [facility] CBC W MANUAL DIFFon 03-28-20 22 ANISOCYTOSIS 3+ Normal [facility] Comment on above: Performed By: #### C ALONZO #### [facility] [address] [address] [address] Kayley Hatfield ATYPICAL LYMPH # Normal [facility] Comment on above: Performed By: #### C ALONZO #### [facility] [address] [address] [address] Kayley Hatfield ATYPICAL LYMPH % Normal [facility] Comment on above: Performed By: #### C ALONZO #### [facility] [address] [address] [address] Kayley Hatfield BAND # 0.3 103/ul Normal 0.0-0.3 [facility] Comment on above: Performed By: #### C BCMAN #### [facility] [address] [place] [address] Dr. Kayley Hatfield BAND % 2 % Normal 0-5 [facility] Comment on above: Performed By: #### C BCKATHY #### [facility] [address] [place] [address] Dr. Kayley Hatfield BASOM # 0.00 103/ul Normal 0.00-0.10 [facility] Comment on above: Performed By: #### C BCKATHY #### [facility] [address] [place] [address] Dr. Kayley Hatfield BASOM % 0.0 % Critically low 0.2-2.0 [facility] Comment on above: Performed By: #### C ALONZO #### [facility] [address] [place] [address] Dr. Kayley Hatfield BLAST # Normal [facility] Comment on above: Performed By: #### C ALONZO #### [facility] [address] [place] [address] Dr. Kayley Hatfield BLAST % Normal [facility] Comment on above: Performed By: #### C ALONZO #### [facility] [address] [place] [address] Dr. Kayley Hatfield CORRECTED WBC Normal 4.0-11.0 [facility] Comment on above: Performed By: #### C BCKATHY #### [facility] [address] [place] [address] Dr. Kayley Hatfield EOS # 0.00 103/ul Normal 0.00-0.70 [facility] Comment on above: Performed By: #### C BCKATHY #### [facility] [address] [place] [address] Dr. Kayley Hatfield EOS% 0.0 % Critically low 0.9-7.0 [facility] Comment on above: Performed By: #### C ALONZO #### [facility] [address] [place] [address] Dr. Kayley Hatfield HCT 23.6 % Critically low 36.0-48.0 [facility] Comment on above: Performed By: #### C ALONZO #### [facility] [address] [address] [address] Kayley Hatfield HGB 6.8 g/dl Critically low 12.0-16.0 [facility] Comment on above: Performed By: #### C ALONZO #### [facility] [address] [address] [address] Kayley Hatfield HYPOCHROMASIA 3+ Normal [facility] Comment on above: Performed By: #### C ALONZO #### [facility] [address] [address] [address] Kayley Hatfield LYMPHM # 1.17 103/ul Critically low 1.20-3.80 [facility] Comment on above: Performed By: #### C ALONZO #### [facility] [address] [address] [address] Kayley Hatfield LYMPHM% 7.0 % Critically low 20.5-60.0 [facility] Comment on above: Performed By: #### C ALONZO #### [facility] [address] [address] [address] Kayley Hatfield MCH 24.6 pg Critically low 26.7-34.0 [facility] Comment on above: Performed By: #### C ALONZO #### [facility] [address] [address] [address] Kayley Hatfield MCHC 28.8 g/dl Critically low 29.9-35.2 [facility] Comment on above: Performed By: #### C ALONZO #### [facility] [address] [address] [address] Kayley Hatfield MCV 85.5 fL Normal 81.0-99.0 [facility] Comment on above: Performed By: #### C ALONZO #### [facility] [address] [address] [address] Kayley Hatfield METAMYELOCYTE # Normal [facility] Comment on above: Performed By: #### C ALONZO #### [facility] [address] [place] [address] Dr. Kayley Hatfield METAMYELOCYTE % Normal [facility] Comment on above: Performed By: #### C ALONZO #### [facility] [address] [address] [address] Kayley Hatfield MONOM# 0.50 103/ul Normal 0.30-0.80 [facility] Comment on above: Performed By: #### C ALONZO #### [facility] [address] [address] [address] Kayley Hatfield MONOM% 3.0 % Normal 1.7-12.0 [facility] Comment on above: Performed By: #### C ALONZO #### [facility] [address] [place] [address] Dr. Kayley Hatfield MPV 8.6 fL Critically low 9.5-13.5 [facility] Comment on above: Performed By: #### C ALONZO #### [facility] [address] [place] [address] Dr. Kayley Hatfield MYELOCYTE # Normal [facility] Comment on above: Performed By: #### C ALONZO #### [facility] [address] [place] [address] Dr. Kayley Hatfield MYELOCYTE % Normal [facility] Comment on above: Performed By: #### C ALONZO #### [facility] [address] [place] [address] Dr. Kayley Hatfield NRBC Normal [facility] Comment on above: Performed By: #### C ALONZO #### [facility] [address] [place] [address] Dr. Kayley Hatfield OVALOCYTES SLIGHT Normal [facility] Comment on above: Performed By: #### C ALONZO #### [facility] [address] [place] [address] Dr. Kayley Hatfield PLT 1384 103/ul Critically high 150-450 [facility] Comment on above: Performed By: #### C ALONZO #### [facility] [address] [place] [address] Dr. Kayley Hatfield RBC 2.76 106/ul Critically low 4.20-5.40 [facility] Comment on above: Performed By: #### C ABBYKATHY #### [facility] [address] [place] [address] Dr. Kayley Hatfield RDW 0.0 % Critically low 11.0-15.0 [facility] Comment on above: Performed By: #### C ALONZO #### [facility] [address] [place] [address] Dr. Kayley Hatfield SEG # 14.70 103/ul Critically high 1.40-6.50 [facility] Comment on above: Performed By: #### C ALONZO #### [facility] [address] [place] [address] Dr. Kayley Hatfield SEG % 88.0 % Critically high 43.0-75.0 [facility] Comment on above: Performed By: #### Ryley ROSADO #### [facility] [address] [place] [address] Dr. Kayley Hatfield WBC 16.7 103/ul Critically high 4.0-11.0 [facility] Comment on above: Performed By: #### C ALONZO #### [facility] [address] [place] [address] Dr. Kayley Hatfield CRPon 03-28-2022 CRP [Mass/Vol] mg/L Normal <=1.0 [facility] Comment on above: Performed By: #### H GBHCT #### [facility] [address] [place] [address] Dr. Kayley Hatfield [facility] SARS-CoV-2 (COVID-19) RNA ELBA+probe Ql (Unsp spec) Not detected Normal NOT DETECTED [facility] Comment on above: Result Comment: When diagnostic [...] for this test is supported by the [place] of [employer]'s declaration that [...] used). Performed By: #### P RBC #### [facility] [address] [place] [address] Dr. Kayley Hatfield ER URINE PROFILEon 2 Bilirubin Ql (U) Negative Normal NEGATIVE [facility] Comment on above: Performed By: #### P RBC #### [facility] [facility] [address] [place] [address] Dr. Kayley Hatfield Clarity (U) CLEAR Normal CLEAR [facility] Comment on above: Performed By: #### P RBC #### [facility] [address] [place] [address] Dr. Kayley Hatfield Color (U) LT. YELLOW Normal YELLOW [facility] Comment on above: Performed By: #### P RBC #### [facility] [address] [place] [address] Dr. Kayley [place] A micrscopic examination will be performed if indicated. Normal [facility] Comment on above: Performed By: #### P RBC #### [facility] [address] [place] [address] Dr. Kayley Hatfield Glucose Ql (U) Negative Normal NEGATIVE [facility] Comment on above: Performed By: #### P RBC #### [facility] [address] [place] [address] Dr. Kayley Hatfield Hemoglobin Ql (U) Negative Normal NEGATIVE [facility] Comment on above: Performed By: #### P RBC #### [facility] [address] [place] [address] Dr. Kayley Hatfield Ketones Ql (U) Negative Normal NEGATIVE [facility] Comment on above: Performed By: #### P RBC #### [facility] [address] [address] [address] Kayley Hatfield LEUKOCYTES Negative Normal NEGATIVE [facility] Comment on above: Performed By: #### P RBC #### [facility] [address] [address] [address] Kayley Hatfield Nitrite Ql (U) Negative Normal NEGATIVE [facility] Comment on above: Performed By: #### P RBC #### [facility] [address] [address] [address] Kayley Hatfield pH (U) 6.0 [pH] Normal 5-9 [facility] Comment on above: Performed By: #### P RBC #### [facility] [address] [place] [address] Dr. Kayley Hatfield SPEC GRAVITY <=1.005 Abnormal 1.005-<=1.025 [facility] Comment on above: Performed By: #### P RBC #### [facility] [address] [place] [address] Dr. Kayley Hatfield UA PROTEIN Negative Normal NEGATIVE/ TRACE [facility] Comment on above: Performed By: #### P RBC #### [facility] [address] [address] [address] Kayley Hatfield UR MICRO IND NOT INDICATED Normal [facility] Comment on above: Performed By: #### P RBC #### [facility] [address] [place] [address] Dr. Kayley Hatfield Urobilinogen Qn (U) 0.2 {Lu'U}/dL Normal 0.2 - 1. 0 [facility] Comment on above: Performed By: #### P RBC #### [facility] [address] [place] [address] Dr. Kayley Hatfield FERRITINon 03-28-2022 Ferritin [Mass/Vol] 61.0 ng/mL Normal 8.0-252.0 [facility] Comment on above: Performed By: #### P RBC #### [facility] [address] [place] [address] Dr. Kayley Hatfield GLYCOHEMOGLOBIN A1Con 2021 ADA RECOMMENDATION SEE BELOW Normal [facility] Comment on above: Result Comment: ADA RECOMMENDED LIMIT 4.0 - 6.0 ADA THERAPEUTIC TARGET < 7.0 ACTION SUGGESTED > 7.0 Performed By: #### P RBC #### [facility] [address] [place] [address] Dr. Kayley Hatfield Glucose [Mass/Vol] 114 mg/dL Normal [facility] Comment on above: Performed By: #### P RBC #### [facility] [address] [place] [address] Dr. Kayley Hatfield HbA1c (Bld) [Mass fraction] 5.6 % Normal 4.5-6.2 [facility] Comment on above: Performed By: #### P RBC #### [facility] [address] [place] [address] Dr. Kayley Hatfield IRONon 03-28-2022 Iron [Mass/Vol] 37.0 ug/dL Critically low 50.0-170.0 [facility] Comment on above: Performed By: #### P RBC #### [facility] [address] [place] [address] Dr. Kayley Hatfield LDHon 03-28-2022 LDH 174 U/L Normal 81-234 [facility] Comment on above: Performed By: #### L DH #### [facility] [address] [place] [address] Dr. Kayley Hatfield LIPID PROFILEon 03-28-2022 CHOL-HDL RATIO NORM SEE BELOW Normal [facility] Comment on above: Result Comment: 3.3 - 4.4 LOW RISK 4.4 - 7.1 AVERAGE RISK 7.1 - 11.0 MODERATE RISK >11.0 HIGH RISK Performed By: #### P RBC #### [facility] [address] [place] [address] Dr. Kayley Hatfield Cholesterol [Mass/Vol] 193 mg/dL Normal <=200 [facility] Comment on above: Performed By: #### P RBC #### [facility] [address] [place] [address] Dr. Kayley Hatfield Cholesterol in HDL [Mass/Vol] 95 mg/dL Critically high 40-60 [facility] Comment on above: Performed By: #### P RBC #### [facility] [address] [address] [address] Kayley Hatfield Cholesterol in LDL [Mass/Vol] 74.8 mg/dL Normal [facility] Comment on above: Performed By: #### P RBC #### [facility] [address] [address] [address] Kayley Hatfield Cholesterol.total/Cho lesterol in HDL [Mass ratio] 2.0 {ratio} Normal [facility] Comment on above: Performed By: #### P RBC #### [facility] [address] [address] [address] Kayley Hatfield HDL NORMAL > or = 60 mg/dl - LO W CARDIOVASCULAR RISK <40 mg/dl - HIGH CARDIOVASCULAR RISK Normal [facility] Comment on above: Performed By: #### P RBC #### [facility] [address] [address] [address] Kayley Hatfield LDL CALC NORMAL SEE BELOW Normal [facility] Comment on above: Result Comment: <100 mg/dl OPTIMAL 100 - 129 mg/dl NEAR OR ABOVE OPTIMAL 130 - 159 mg/dl BORDERLINE HIGH 160 - 189 mg/dl HIGH >190 mg/dl VERY HIGH Performed By: #### P RBC #### [facility] [address] [address] [address] Kayley Hatfield Triglyceride [Mass/Vol] 116 mg/dL Normal <=150 [facility] Comment on above: Performed By: #### P RBC #### [facility] [address] [address] [address] Kayley Hatfield VLDL CALC 23.2 mg/dL Normal [facility] Comment on above: Performed By: #### P RBC #### [facility] [address] [address] [address] Kayley Hatfield LIVER PROFILEon 03-28-2022 Albumin [Mass/Vol] 3.2 g/dL Critically low 3.4-5.0 Th [facility] Comment on above: Performed By: #### P RBC #### [facility] [address] [place] [address] Dr. Kayley Hatfield Albumin/Globulin [Mass ratio] 1.0 {ratio} Normal [facility] Comment on above: Performed By: #### P RBC #### [facility] [address] [place] [address] Dr. Kayley Hatfield ALP [Catalytic activity/Vol] 56 U/L Normal 46-116 [facility] Comment on above: Performed By: #### P RBC #### [facility] [address] [address] [address] Kayley Hatfield ALT [Catalytic activity/Vol] 32 U/L Normal 14-59 [facility] Comment on above: Performed By: #### P RBC #### [facility] [address] [place] [address] Dr. Kayley Hatfield AST [Catalytic activity/Vol] 18 U/L Normal 15-37 [facility] Comment on above: Performed By: #### P RBC #### [facility] [address] [place] [address] Dr. Kayley Hatfield BILI, CONJUGATED 0.1 mg/dL Normal 0.0-0.2 [facility] Comment on above: Performed By: #### P RBC #### [facility] [address] [place] [address] Dr. Kayley Hatfield Bilirubin [Mass/Vol] 0.2 mg/dL Normal 0.2-1.0 [facility] Comment on above: Performed By: #### P RBC #### [facility] [address] [place] [address] Dr. Kayley Hatfield Globulin (S) [Mass/Vol] 3.1 g/dL Normal [facility] Comment on above: Performed By: #### P RBC #### [facility] [address] [place] [address] Dr. Kayley Hatfield Protein [Mass/Vol] 6.3 g/dL Critically low 6.4-8.2 Th [facility] Comment on above: Performed By: #### P RBC #### [facility] [address] [place] [address] Dr. Kayley Hatfield MAGNESIUMon 03-28-2022 Magnesium [Mass/Vol] 1.8 mg/dL Normal 1.8-2.4 [facility] Comment on above: Performed By: #### H GBHCT #### [facility] [address] [place] [address] Dr. Kayley Hatfield PHOSPHORUSon 03-28-2022 Phosphate [Mass/Vol] 4.4 mg/dL Normal 2.6-4.7 [facility] Comment on above: Performed By: #### O BSCRN #### [facility] [address] [place] [address] Dr. Kayley Hatfield PROF CHEM 8 (BAS METB)on Anion gap [Moles/Vol] 10.1 mmol/L Normal Th [facility] Comment on above: Performed By: #### P RBC #### [facility] [address] [place] [address] Dr. Kayley Hatfield Calcium [Mass/Vol] 9.1 mg/dL Normal 8.5-10.1 [facility] Comment on above: Performed By: #### P RBC #### [facility] [address] [place] [address] Dr. Kayley Hatfield Chloride [Moles/Vol] 101 mmol/L Normal 98-107 [facility] Comment on above: Performed By: #### P RBC #### [facility] [address] [place] [address] Dr. Kayley Hatfield CO2 [Moles/Vol] 32.6 mmol/L Critically high 21.0-32.0 [facility] Comment on above: Performed By: #### P RBC #### [facility] [address] [place] [address] Dr. Kayley Hatfield Creatinine [Mass/Vol] 0.90 mg/dL Normal 0.55-1.02 [facility] Comment on above: Performed By: #### P RBC #### [facility] [address] [place] [address] Dr. Kayley Hatfield EGFR-AF VINCENTIAN >60 Normal >=60 [facility] Comment on above: Performed By: #### P RBC #### [facility] [address] [place] [address] Dr. Kayley Hatfield EGFR-NON AF VINCENTIAN >60 Normal >=60 [facility] Comment on above: Performed By: #### P RBC #### [facility] [address] [address] [address] Kayley Hatfield Glucose [Mass/Vol] 161 mg/dL Critically high 74-106 [facility] Comment on above: Performed By: #### P RBC #### [facility] [address] [address] [address] Kayley Hatfield Potassium [Moles/Vol] 4.7 mmol/L Normal 3.5-5.1 [facility] Comment on above: Performed By: #### P RBC #### [facility] [address] [address] [address] Kayley Hatfield Sodium [Moles/Vol] 139 mmol/L Normal 136-145 [facility] Comment on above: Performed By: #### P RBC #### [facility] [address] [address] [address] Kayley Hatfield Urea nitrogen [Mass/Vol] 15.0 mg/dL Normal 7.0-18.0 [facility] Comment on above: Performed By: #### P RBC #### [facility] [address] [address] [address] Kayley Hatfield Urea nitrogen/Creatinine [Mass ratio] 16.7 mg/mg Normal [facility] Comment on above: Performed By: #### P RBC #### [facility] [address] [address] [address] Kayley Hatfield RETICULOCYTEon 03-28-2022 RETIC 4.65 % Critically high 0.60-3.10 [facility] Comment on above: Performed By: #### L DH #### [facility] [address] [address] [address] Kayley Hatfield SED RATE WESTERGRENon 2021 SED RATE 12 mm/hr Normal <=30 [facility] Comment on above: Performed By: #### P RTELEC #### [facility] [address] [address] [address] Kayley Hatfield TSHon 03-28-2022 TSH 0.922 uIU/mL Normal 0.358-3.740 [facility] Comment on above: Performed By: #### P RBC #### [facility] [address] [place], [place] [id number] Dr. Kayley Hatfield TYPE AND SCREENon 03-28-2022 TYPE AND SCREEN Negative Normal [facility] Comment on above: Performed By: #### C VDTBH #### [facility] [address] [place] [address] Dr. Kayley Hatfield VIT B12 AND FOLATEon 022 Cobalamin (Vitamin B12) [Mass/Vol] 490.0 pg/mL Normal 193.0-986.0 [facility] Comment on above: Performed By: #### L DH #### [facility] [address] [place] [address] Dr. Kayley Hatfield FOLATE 14.00 ng/mL Normal 8.60-58.90 [facility] Comment on above: Performed By: #### L DH #### [facility] [address] [place] [address] Dr. Kayley Hatfield VITAMIN D 25 OHon 03-28-2022 VIT D 25-OH 41.5 ng/mL Normal [facility] Comment on above: Performed By: #### O BSCRN #### [facility] [address] [place], [place] [id number] Dr. Kayley Hatfield VIT D RANGES SEE BELOW Normal [facility] Comment on above: Result Comment: <20 ng/mL Vit D deficient 20 - <30 ng/mL Vit D insufficient 30 - 100 ng/mL Vit D sufficient >100 ng/mL Potential Toxicity Performed By: #### O BSCRN #### [facility] [address] [place] [address] Dr. Kayley Hatfield XR CHEST 1 Von [...] STEPHEN ARAIZA Date: 2022-03-28 21:37 Normal [facility] BASIC METABOLIC PANELon 09-0 Calcium [Mass/Vol] 8.9 mg/dL Normal 8.6-10.3 [facility] Comment on above: Order Comment: No: D o not add to previous draw Performed By: #### 3 5200, 04736, 55676, 66645 #### [facility] [address] [place] [address], [place] Chloride [Moles/Vol] 97 mmol/L Low 98-107 [facility] Comment on above: Order Comment: No: D o not add to previous draw Performed By: #### 3 5200, 58151, 00739, 12502 #### [facility] [address] [place] [address], [place] CO2 [Moles/Vol] 35 mmol/L High 21-31 [facility] Comment on above: Order Comment: No: D o not add to previous draw Performed By: #### 3 5200, 13695, 93555, 57434 #### [facility] [address] [place] [address], [place] Creatinine [Mass/Vol] 0.65 mg/dL Normal 0.60-1.20 [facility] Comment on above: Order Comment: No: D o not add to previous draw Performed By: #### 3 5200, 42809, 15353, 31561 #### [facility] [address] [place] [id number], [facility] GFR/1.73 sq M.predicted among non-blacks MDRD (S/P/Bld) [Vol rate/Area] mL/min/{1.73_m2} Normal >60 [facility] Comment on above: Order Comment: No: D o not add to previous draw Result Comment: [facility]'s estimated glomerular filtration rate (eGFR) [...] of individuals. Performed By: #### 3 0, 43558, 87711, 97018 #### [facility] [address] [place] [address], [facility] Glucose [Mass/Vol] 161 mg/dL High 70-100 [facility] Comment on above: Order Comment: No: D o not add to previous draw Performed By: #### 3 0, 53850, 06989, 35657 #### [facility] [address] [place] [address], [place] Potassium [Moles/Vol] 3.9 mmol/L Normal 3.5-5.1 [facility] Comment on above: Order Comment: No: D o not add to previous draw Performed By: #### 3 0, 89449, 47548, 40025 #### [facility] [address] [place] [address], [place] Sodium [Moles/Vol] 136 mmol/L Normal 136-145 [facility] Comment on above: Order Comment: No: D o not add to previous draw Performed By: #### 3 0, 27924, 88225, 79943 #### [facility] [address] [place] [address], [facility] Urea nitrogen [Mass/Vol] 16 mg/dL Normal 7-25 [facility] Comment on above: Order Comment: No: D o not add to previous draw Performed By: #### 3 5200, 62210, 95554, 80795 #### [facility] [address] [place] [address], [facility] CBC COMPLETE BLOOD COUNTon 0 03-15-2022 Hematocrit (Bld) [Volume fraction] 28.2 % Low 36.0-45.0 [facility] Comment on above: Order Comment: No: D o not add to previous draw Performed By: #### 3 5200 #### [facility] [address] [place] [address], [facility] Hemoglobin (Bld) [Mass/Vol] 8.3 g/dL Low 12.0-15.0 [facility] Comment on above: Order Comment: No: D o not add to previous draw Performed By: #### 3 5200 #### [facility] [address] [place] [address], [facility] MCH (RBC) [Entitic mass] 22.9 pg Low 27.0-33.0 [facility] Comment on above: Order Comment: No: D o not add to previous draw Performed By: #### 3 5200 #### [facility] [address] [place] [address], [facility] MCHC (RBC) [Mass/Vol] 29.4 g/dL Low 32.0-35.0 [facility] Comment on above: Order Comment: No: D o not add to previous draw Performed By: #### 3 5200 #### [facility] [address] [place] [address], [facility] MCV (RBC) [Entitic vol] 77.9 fL Low 82.0-98.0 [facility] Comment on above: Order Comment: No: D o not add to previous draw Performed By: #### 3 5200 #### [facility] [address] [place] [address], [facility] Nucleated RBC/100 WBC (Bld) [Ratio] 0 % Normal 0-0 [facility] Comment on above: Order Comment: No: D o not add to previous draw Performed By: #### 3 5200 #### [facility] [address] [place] [address], [facility] PLAT CNT 221 10*3/uL Normal 150-400 [facility] Comment on above: Order Comment: No: D o not add to previous draw Performed By: #### 3 5200 #### [facility] [address] [facility] [place] [address], [facility] RBC (Bld) [#/Vol] 3.62 10*6/uL Low 3.80-5.00 [facility] Comment on above: Order Comment: No: D o not add to previous draw Performed By: #### 3 5200 #### [facility] [address] [facility] [place] [address], [facility] RDW ---- Normal 11.5-15.0 [facility] Comment on above: Order Comment: No: D o not add to previous draw Result Comment: Prev ious RDW was unable to be calculated Performed By: #### 3 5200 #### [facility] [address] [facility] [place] [address], [facility] WBC (Bld) [#/Vol] 11.88 10*3/uL High 4.00-10.60 [facility] Comment on above: Order Comment: No: D o not add to previous draw Performed By: #### 3 5200 #### [facility] [address] [place] [address], [facility] POC GLUCOSE LABon 03-15-2022 Glucose [Mass/Vol] 109 mg/dL High 70-100 [facility] Comment on above: Performed By: #### 8 5499 ####[facility] [facility] [place] [address], [facility] POC GLUCOSE LABon 03-14-2022 Glucose [Mass/Vol] 278 mg/dL High 70-100 [facility] Comment on above: Performed By: #### 8 5499 ####[facility] [place] [address], [place] Glucose [Mass/Vol] 195 mg/dL High 70-100 [facility] Comment on above: Performed By: #### 8 5499 ####[facility] [facility] [place] [address], [place] Glucose [Mass/Vol] 114 mg/dL High 70-100 [facility] Comment on above: Performed By: #### 8 5499 ####[facility] [facility] [place] [address], [place] Glucose [Mass/Vol] 113 mg/dL High 70-100 [facility] Comment on above: Performed By: #### 3 5200 #### [facility] [address] [place] [address], [facility] PORTABLE CHEST 1 VIEWon PORTABLE CHEST 1 VIEW [facility] Department of Radiology [address] [place] [address] Patient Name: LISE CANALES : 1955 Sex: F Age: Race: White Pt. Location: [address] [place] [address] Patient Status: I Ordered Date: 03/14/2022 2:35:00 [...] chest. Electronically signed: Tyshawn Tapia. Transcribed by: [email or web address], User Resident: Electronically Signed by: TYSHAWN TAPIA @ 03/14/2022 03:31 PM Normal [facility] Comment on above: Order Comment: Check Chest Tube Position, S/P Chest tube DC'd PORTABLE CHEST 1 VIEW [facility] Department of Radiology [address] [place] [id number] Patient Name: LISE CANALES : 1955 Sex: F Age: Race: White Pt. Location: [address] [place] [address] Patient Status: I Ordered Date: 03/14/2022 6:50:00 [...] pneumothorax. Electronically signed: Tyshawn Tapia. Transcribed by: [email or web address], User Resident: Electronically Signed by: TYSHAWN TAPIA @ 03/14/2022 02:56 PM Normal [facility] Comment on above: Order Comment: Check Chest Tube Position, S/P Chest tube DC'd POC GLUCOSE LABon 03-13-2022 Glucose [Mass/Vol] 282 mg/dL High 70-100 [facility] Comment on above: Performed By: #### 8 5499 ####[facility] [facility] [place] [address], [facility] Glucose [Mass/Vol] 163 mg/dL High 70-100 [facility] Comment on above: Performed By: #### 8 5499 ####[facility] [place] [address], [place] Glucose [Mass/Vol] 149 mg/dL High 70-100 [facility] Comment on above: Performed By: #### 3 5200 #### [facility] [address] [place] [address], [place] Glucose [Mass/Vol] 149 mg/dL High 70-100 [facility] Comment on above: Performed By: #### 8 5499 ####[facility] [facility] [place] [address] PORTABLE CHEST 1 VIEWon 090 PORTABLE CHEST 1 VIEW [facility] Department of Radiology [address] [place] [address] Patient Name: LISE CANALES : 1955 Sex: F Age: Race: White Pt. Location: [id number] Patient Status: I Ordered Date: 03/13/2022 4:15:00 [...] morning Electronically signed: Avinash Mckay. Transcribed by: [email or web address], User Resident: Electronically Signed by: AVINASH MCKAY @ 03/13/2022 06:20 PM Normal [facility] Comment on above: Order Comment: Check Chest Tube Position, S/P Chest tube DC'd PORTABLE CHEST 1 VIEW [facility] Department of Radiology [address] [place] [id number] Patient Name: LISE CANALES : 1955 Sex: F Age: Race: White Pt. Location: [address] [place] [address] Patient Status: I Ordered Date: 03/13/2022 6:50:00 [...] congestion. Electronically signed: Tyshawn Tapia. Transcribed by: [email or web address], User Resident: Electronically Signed by: TYSHAWN TAPIA @ 03/13/2022 08:34 AM Normal [facility] Comment on above: Order Comment: Evalu ate for Aspiration POTASSIUM BLOODon 03-13-2022 Potassium [Moles/Vol] 4.5 mmol/L Normal 3.5-5.1 [facility] Comment on above: Order Comment: No: D o not add to previous draw Performed By: #### 3 5200 #### [facility] [address] BASIC METABOLIC PANELon Calcium [Mass/Vol] 9.4 mg/dL Normal 8.6-10.3 [facility] Comment on above: Order Comment: Check Chest Tube Position, S/P Chest tube DC'd Performed By: #### 0 0071 ####[facility] [address], [facility] Chloride [Moles/Vol] 98 mmol/L Normal 98-107 [facility] Comment on above: Order Comment: Check Chest Tube Position, S/P Chest tube DC'd Performed By: #### 0 0071 ####[facility] [place] [address], [facility] CO2 [Moles/Vol] 34 mmol/L High 21-31 [facility] Comment on above: Order Comment: Check Chest Tube Position, S/P Chest tube DC'd Performed By: #### 0 0071 ####[facility] [place] [address], [facility] Creatinine [Mass/Vol] 0.56 mg/dL Low 0.60-1.20 [facility] Comment on above: Order Comment: Check Chest Tube Position, S/P Chest tube DC'd Performed By: #### 0 0071 ####[place] [address] [address] GFR/1.73 sq M.predicted among non-blacks MDRD (S/P/Bld) [Vol rate/Area] mL/min/{1.73_m2} Normal >60 [facility] Comment on above: Order Comment: Check Chest Tube Position, S/P Chest tube DC'd Result Comment: [facility]'s estimated glomerular filtration rate (eGFR) [...] Performed By: #### 0 0071 ####[facility] [place] [address], [facility] Glucose [Mass/Vol] 114 mg/dL High 70-100 [facility] Comment on above: Order Comment: Check Chest Tube Position, S/P Chest tube DC'd Performed By: #### 0 0071 ####[place] [address] [place] [address], [facility] Potassium [Moles/Vol] 3.3 mmol/L Low 3.5-5.1 [facility] Comment on above: Order Comment: Check Chest Tube Position, S/P Chest tube DC'd Performed By: #### 0 0071 ####[place] [address] [place] [address], [facility] Sodium [Moles/Vol] 140 mmol/L Normal 136-145 [facility] Comment on above: Order Comment: Check Chest Tube Position, S/P Chest tube DC'd Performed By: #### 0 0071 ####[facility] [place] [address], [facility] Urea nitrogen [Mass/Vol] 9 mg/dL Normal 7-25 [facility] Comment on above: Order Comment: Check Chest Tube Position, S/P Chest tube DC'd Performed By: #### 0 0071 ####[facility] [place] [id number], [facility] CBC COMPLETE BLOOD COUNTon 0 03-12-2022 Hematocrit (Bld) [Volume fraction] 35.2 % Low 36.0-45.0 [facility] Comment on above: Order Comment: No: D o not add to previous draw Performed By: #### 3 5200 #### [facility] [address] [place] [address], [facility] Hemoglobin (Bld) [Mass/Vol] 10.1 g/dL Low 12.0-15.0 [facility] Comment on above: Order Comment: No: D o not add to previous draw Performed By: #### 3 5200 #### [facility] [address] [place] [address], [facility] IMM PLATELET FRAC 3.6 % Normal 0.8-6.3 [facility] Comment on above: Order Comment: No: D o not add to previous draw Performed By: #### 3 5200 #### [facility] [address] [place] [address], [facility] MCH (RBC) [Entitic mass] 21.9 pg Low 27.0-33.0 [facility] Comment on above: Order Comment: No: D o not add to previous draw Performed By: #### 3 5200 #### [facility] [address] [place] [address], [facility] MCHC (RBC) [Mass/Vol] 28.7 g/dL Low 32.0-35.0 [facility] Comment on above: Order Comment: No: D o not add to previous draw Performed By: #### 3 5200 #### [facility] [address] [place] [address], [facility] MCV (RBC) [Entitic vol] 76.2 fL Low 82.0-98.0 [facility] Comment on above: Order Comment: No: D o not add to previous draw Performed By: #### 3 5200 #### [facility] [address] [place] [address], [facility] Nucleated RBC/100 WBC (Bld) [Ratio] 0 % Normal 0-0 [facility] Comment on above: Order Comment: No: D o not add to previous draw Performed By: #### 3 5200 #### [facility] [address] [place] [id number], [facility] PLAT CNT 129 10*3/uL Low 150-400 [facility] Comment on above: Order Comment: No: D o not add to previous draw Performed By: #### 3 5200 #### [facility] [address] [place] [id number], [facility] RBC (Bld) [#/Vol] 4.62 10*6/uL Normal 3.80-5.00 [facility] Comment on above: Order Comment: No: D o not add to previous draw Performed By: #### 3 5200 #### [facility] [address] [facility] [place] [id number], [facility] RDW Unable to Calculate Normal 11.5-15.0 [facility] Comment on above: Order Comment: No: D o not add to previous draw Performed By: #### 3 5200 #### [facility] [address] [place] [address], [facility] WBC (Bld) [#/Vol] 11.72 10*3/uL High 4.00-10.60 [facility] Comment on above: Order Comment: No: D o not add to previous draw Performed By: #### 3 5200 #### [facility] [address] [place] [address], [place] POC GLUCOSE LABon 03-12-2022 Glucose [Mass/Vol] 252 mg/dL High 70-100 [facility] Comment on above: Performed By: #### 3 5200 #### [facility] [address] [address], [place] POC GLUCOSE LABon 03-11-2022 Glucose [Mass/Vol] 121 mg/dL High 70-100 [facility] Comment on above: Performed By: #### 8 5499 ####[facility] [place] [address], [place] Glucose [Mass/Vol] 122 mg/dL High 70-100 [facility] Comment on above: Performed By: #### 3 5200 #### [facility] [address] [facility] [place] [address], [place] Glucose [Mass/Vol] 86 mg/dL Normal 70-100 [facility] Comment on above: Performed By: #### 3 5200 #### [facility] [address] [facility] [place] [address], [facility] PORTABLE CHEST 1 VIEWon PORTABLE CHEST 1 VIEW [facility] Department of Radiology [address] [place] [id number] Patient Name: LISE CANALES : 1955 Sex: F Age: Race: White Pt. Location: [id number] Patient Status: I Ordered Date: 03/11/2022 3:25:00 [...] abnormalities Electronically signed: Avinash Mckay. Transcribed by: [email or web address], User Resident: Electronically Signed by: AVINASH MCKAY @ 03/11/2022 06:30 PM Normal [facility] Comment on above: Order Comment: Evalu ate for Atelectasis CBC COMPLETE BLOOD COUNTon 0 03-10-2022 Erythrocyte distribution width (RBC) [Ratio] 29.9 % High 11.5-15.0 [facility] Comment on above: Order Comment: No: D o not add to previous draw Performed By: #### 3 5200 #### [facility] [address] [facility] [place] [address], [facility] Hematocrit (Bld) [Volume fraction] 32.2 % Low 36.0-45.0 [facility] Comment on above: Order Comment: No: D o not add to previous draw Performed By: #### 3 4000 #### [facility] [address] [place] [address], [facility] Hemoglobin (Bld) [Mass/Vol] 9.2 g/dL Low 12.0-15.0 [facility] Comment on above: Order Comment: No: D o not add to previous draw Performed By: #### 3 5200 #### [facility] [address] [facility] [place] [place] [address], [facility] IMM PLATELET FRAC 3.4 % Normal 0.8-6.3 [facility] Comment on above: Order Comment: No: D o not add to previous draw Performed By: #### 3 5200 #### [facility] [address] [facility] [place] [address], [facility] MCH (RBC) [Entitic mass] 21.9 pg Low 27.0-33.0 [facility] Comment on above: Order Comment: No: D o not add to previous draw Performed By: #### 3 5200 #### [facility] [address] [place] [address], [facility] MCHC (RBC) [Mass/Vol] 28.6 g/dL Low 32.0-35.0 [facility] Comment on above: Order Comment: No: D o not add to previous draw Performed By: #### 3 5200 #### [facility] [address] [facility] [place] [address], [facility] MCV (RBC) [Entitic vol] 76.7 fL Low 82.0-98.0 [facility] Comment on above: Order Comment: No: D o not add to previous draw Performed By: #### 3 5200 #### [facility] [address] [place] [address], [facility] Nucleated RBC/100 WBC (Bld) [Ratio] 0 % Normal 0-0 [facility] Comment on above: Order Comment: No: D o not add to previous draw Performed By: #### 3 5200 #### [facility] [address] [place] [address], [facility] PLAT CNT 124 10*3/uL Low 150-400 [facility] Comment on above: Order Comment: No: D o not add to previous draw Performed By: #### 3 5200 #### [facility] [address] [place] [address], [facility] RBC (Bld) [#/Vol] 4.20 10*6/uL Normal 3.80-5.00 [facility] Comment on above: Order Comment: No: D o not add to previous draw Performed By: #### 3 5200 #### [facility] [address] [place] [address], [facility] WBC (Bld) [#/Vol] 12.68 10*3/uL High 4.00-10.60 [facility] Comment on above: Order Comment: No: D o not add to previous draw Performed By: #### 3 5200 #### [facility] [address] [place] [address], [facility] HEMOGLOBIN A1Con 03-10-2022 Glucose [Moles/Vol] 143 mmol/L Normal [facility] Comment on above: Order Comment: No: D o not add to previous draw Result Comment: Resu lt changed by BSHORT on 03/10/2022 13:15. The previous value was 140. Performed By: #### 3 1791 #### [facility] [address] [place] [address], [facility] HbA1c (Bld) [Mass fraction] 6.6 % High 4.0-6.0 [facility] Comment on above: Order Comment: No: D o not add to previous draw Result Comment: Resu lt changed by BSHORT on 03/10/2022 13:15. The previous value was 6.5. Performed By: #### 3 1791 #### [facility] [address] [place] [address], [facility] POC GLUCOSE LABon 03-10-2022 Glucose [Mass/Vol] 107 mg/dL High 70-100 [facility] Comment on above: Performed By: #### 3 5200 #### [facility] [address] [place] [address], [facility] Glucose [Mass/Vol] 100 mg/dL Normal 70-100 [facility] Comment on above: Performed By: #### 8 5499 ####[facility] [place] [address], [facility] Glucose [Mass/Vol] 147 mg/dL High 70-100 [facility] Comment on above: Performed By: #### 8 5499 ####[facility] [place] [address], [facility] Glucose [Mass/Vol] 65 mg/dL Low 70-100 [facility] Comment on above: Performed By: #### 8 5499 ####[facility] [place] [address], [facility] PORTABLE CHEST 1 VIEWon PORTABLE CHEST 1 VIEW [facility] Department of Radiology [address] [place] [address] Patient Name: LISE CANALES : 1955 Sex: F Age: Race: White Pt. Location: [id number] Patient Status: I Ordered Date: 03/10/2022 7:40:00 [...] recommended. Electronically signed: Derek Ingram. Transcribed by: [email or web address], User Resident: Electronically Signed by: DEREK INGRAM @ 03/10/2022 12:10 PM Normal [facility] Comment on above: Order Comment: No: D o not add to previous draw *URINE CULTUREon 03-09-2022 *URINE CULTURE Clinical Report: (D) Specimen/Source: URINE/CLEAN VOID URINE Collected: 03/09/2022 01:58 Status: Final Last Updated: 03/10/2022 08:51 ISO (Final) 50,000 - 100,000 Cfu/mL Mixed Lexi: Multiple Organisms present suggest contamination. Suggest Repeat Specimen Normal [facility] Comment on above: Performed By: #### 3 0339 ####[facility] [place] [address], [facility] CBC W/DIFFon 03-09-2022 ABS IMM GRANS 0.1 10*3/uL Normal 0.0-0.2 [facility] Comment on above: Order Comment: Check Chest Tube Position, S/P Chest tube DC'd Performed By: #### 5 0103 ####[facility] [place] [address], [facility] ABS NEUTROPHILS 13.3 10*3/uL High 1.6-7.6 [facility] Comment on above: Order Comment: Check Chest Tube Position, S/P Chest tube DC'd Performed By: #### 5 0103 ####[facility] ANISO Moderate Normal [facility] Comment on above: Order Comment: Check Chest Tube Position, S/P Chest tube DC'd Performed By: #### 5 0103 ####[facility] Basophils (Bld) [#/Vol] 0.0 10*3/uL Normal 0.0-0.2 [facility] Comment on above: Order Comment: Check Chest Tube Position, S/P Chest tube DC'd Performed By: #### 5 0103 ####[facility] [place] [address], [facility] Basophils/100 WBC (Bld) 0.3 % Normal 0.0-1.0 [facility] Comment on above: Order Comment: Check Chest Tube Position, S/P Chest tube DC'd Performed By: #### 5 0103 ####[facility] [place] [address], [facility] Eosinophils (Bld) [#/Vol] 0.1 10*3/uL Normal 0.0-0.5 [facility] Comment on above: Order Comment: Check Chest Tube Position, S/P Chest tube DC'd Performed By: #### 5 0103 ####[facility] [place] [address], [facility] Eosinophils/100 WBC (Bld) 0.5 % Normal 0.0-6.0 [facility] Comment on above: Order Comment: Check Chest Tube Position, S/P Chest tube DC'd Performed By: #### 5 0103 ####[facility] Erythrocyte distribution width (RBC) [Ratio] 28.7 % High 11.5-15.0 [facility] Comment on above: Order Comment: Check Chest Tube Position, S/P Chest tube DC'd Performed By: #### 5 0103 ####[facility] Hematocrit (Bld) [Volume fraction] 29.1 % Low 36.0-45.0 [facility] Comment on above: Order Comment: Check Chest Tube Position, S/P Chest tube DC'd Performed By: #### 5 3 ####[facility] Hemoglobin (Bld) [Mass/Vol] 8.3 g/dL Low 12.0-15.0 [facility] Comment on above: Order Comment: Check Chest Tube Position, S/P Chest tube DC'd Performed By: #### 5 3 ####[facility] HYPO Slight Normal [facility] Comment on above: Order Comment: Check Chest Tube Position, S/P Chest tube DC'd Performed By: #### 5 0103 ####[facility] IMMATURE GRANS 0.5 % Normal 0.0-1.0 [facility] Comment on above: Order Comment: Check Chest Tube Position, S/P Chest tube DC'd Performed By: #### 5 3 ####[facility] Lymphocytes (Bld) [#/Vol] 0.8 10*3/uL Low 1.2-4.0 [facility] Comment on above: Order Comment: Check Chest Tube Position, S/P Chest tube DC'd Performed By: #### 5 0103 ####[facility] Lymphocytes/100 WBC (Bld) 5.5 % Low 20.0-45.0 [facility] Comment on above: Order Comment: Check Chest Tube Position, S/P Chest tube DC'd Performed By: #### 5 0103 ####[facility] MCH (RBC) [Entitic mass] 21.7 pg Low 27.0-33.0 [facility] Comment on above: Order Comment: Check Chest Tube Position, S/P Chest tube DC'd Performed By: #### 5 3 ####[facility] MCHC (RBC) [Mass/Vol] 28.5 g/dL Low 32.0-35.0 [facility] Comment on above: Order Comment: Check Chest Tube Position, S/P Chest tube DC'd Performed By: #### 5 0103 ####[facility] MCV (RBC) [Entitic vol] 76.2 fL Low 82.0-98.0 [facility] Comment on above: Order Comment: Check Chest Tube Position, S/P Chest tube DC'd Performed By: #### 5 0103 ####[facility] Monocytes (Bld) [#/Vol] 1.1 10*3/uL High 0.1-1.0 [facility] Comment on above: Order Comment: Check Chest Tube Position, S/P Chest tube DC'd Performed By: #### 5 3 ####[facility] [place], [place] [address], [place] [address], [facility] MONOS 7.3 % Normal 5.0-12.0 [facility] Comment on above: Order Comment: Check Chest Tube Position, S/P Chest tube DC'd Performed By: #### 5 0103 ####[facility] [facility] [place] [address], [facility] Neutrophils/100 WBC (Bld) 85.9 % High 40.0-72.0 [facility] Comment on above: Order Comment: Check Chest Tube Position, S/P Chest tube DC'd Performed By: #### 5 0103 ####[facility] [place] [address], [facility] Nucleated RBC/100 WBC (Bld) [Ratio] 0 % Normal 0-0 [facility] Comment on above: Order Comment: Check Chest Tube Position, S/P Chest tube DC'd Performed By: #### 5 0103 ####[facility] [facility] [place] [address], [facility] PLAT CNT 149 10*3/uL Low 150-400 [facility] Comment on above: Order Comment: Check Chest Tube Position, S/P Chest tube DC'd Performed By: #### 5 0103 ####[facility] [facility] [place] [address], [facility] POIK Slight Normal [facility] Comment on above: Order Comment: Check Chest Tube Position, S/P Chest tube DC'd Performed By: #### 5 0103 ####[facility] [facility] [place] [address], [facility] POLY Slight Normal [facility] Comment on above: Order Comment: Check Chest Tube Position, S/P Chest tube DC'd Performed By: #### 5 3 ####[facility] [facility].[place] [id number], [facility] RBC (Bld) [#/Vol] 3.82 10*6/uL Normal 3.80-5.00 [facility] Comment on above: Order Comment: Check Chest Tube Position, S/P Chest tube DC'd Performed By: #### 5 0103 ####[facility] [place] [address], [facility] WBC (Bld) [#/Vol] 15.41 10*3/uL High 4.00-10.60 [facility] Comment on above: Order Comment: Check Chest Tube Position, S/P Chest tube DC'd Performed By: #### 5 0103 ####[facility] [place] [address], [facility] COMP METABOLIC PANELon 03-09 Albumin [Mass/Vol] 3.8 g/dL Normal 3.5-5.7 [facility] Comment on above: Order Comment: No: D o not add to previous draw Performed By: #### 3 5200, 44954, 62009, 03874 #### [facility] [address] [place] [address], [place] ALKALINE PHOSPH 52 IU/L Normal 34-104 [facility] Comment on above: Order Comment: No: D o not add to previous draw Performed By: #### 3 5200, 18730, 43235, 07364 #### [facility] [address] [place] [address], [place] ALT [Catalytic activity/Vol] 13 U/L Normal 7-52 [facility] Comment on above: Order Comment: No: D o not add to previous draw Performed By: #### 3 5200, 46363, 10562, 54549 #### [facility] [address] [place] [address], [place] AST [Catalytic activity/Vol] 14 U/L Normal 13-39 [facility] Comment on above: Order Comment: No: D o not add to previous draw Performed By: #### 3 5200, 31839, 63291, 62532 #### [facility] [address] [place] [address], [place] Bilirubin [Mass/Vol] 0.4 mg/dL Normal 0.3-1.0 [facility] Comment on above: Order Comment: No: D o not add to previous draw Performed By: #### 3 5200, 04410, 25513, 31178 #### [facility] [address] [place] [address], [place] Calcium [Mass/Vol] 9.2 mg/dL Normal 8.6-10.3 [facility] Comment on above: Order Comment: No: D o not add to previous draw Performed By: #### 3 5200, 09331, 88512, 29314 #### [facility] [address] [place] [address], [place] Chloride [Moles/Vol] 99 mmol/L Normal 98-107 [facility] Comment on above: Order Comment: No: D o not add to previous draw Performed By: #### 3 5200, 89880, 11965, 26168 #### [facility] [address] [place] [address], [place] CO2 [Moles/Vol] 33 mmol/L High 21-31 [facility] Comment on above: Order Comment: No: D o not add to previous draw Performed By: #### 3 5200, 93555, 46411, 05374 #### [facility] [address] [place] [address], [place] Creatinine [Mass/Vol] 0.79 mg/dL Normal 0.55-1.02 [facility] Comment on above: Order Comment: No: D o not add to previous draw Performed By: #### 3 5200, 01574, 07114, 21127 #### [facility] [address] [place] [address], [place] Performed By: #### B LDCX1 #### [facility] [address] [place] [address] Dr. Yilan Hatfield GFR/1.73 sq M.predicted among non-blacks MDRD (S/P/Bld) [Vol rate/Area] mL/min/{1.73_m2} Normal >60 [facility] Comment on above: Order Comment: No: D o not add to previous draw Result Comment: [facility]'s estimated glomerular filtration rate (eGFR) [...] of individuals. Performed By: #### 3 5200, 67507, 61409, 14272 #### [facility] [address] [place] [address], [place] Glucose [Mass/Vol] 125 mg/dL High 70-100 [facility] Comment on above: Order Comment: No: D o not add to previous draw Performed By: #### 3 0, 45238, 40078, 90152 #### [facility] [address] [place] [address], [place] Potassium [Moles/Vol] 4.7 mmol/L Normal 3.5-5.1 [facility] Comment on above: Order Comment: No: D o not add to previous draw Performed By: #### 3 0, 58212, 63082, 70729 #### [facility] [address] [place] [address], [place] Protein [Mass/Vol] 5.9 g/dL Low 6.0-8.3 [facility] Comment on above: Order Comment: No: D o not add to previous draw Performed By: #### 3 5200, 17892, 10171, 58149 #### [facility] [address] [place] [address], [place] Sodium [Moles/Vol] 136 mmol/L Normal 136-145 [facility] Comment on above: Order Comment: No: D o not add to previous draw Performed By: #### 3 5200, 93949, 06645, 25332 #### [facility] [address] [place] [address], [facility] Urea nitrogen [Mass/Vol] 12 mg/dL Normal 7-25 [facility] Comment on above: Order Comment: No: D o not add to previous draw Performed By: #### 3 5200, 83279, 05773, 87797 #### [facility] [address] [place] [address], [facility] LIPID PROFILEon 03-09-2022 Cholesterol [Mass/Vol] 160 mg/dL Normal 120-200 [facility] Comment on above: Order Comment: No: D o not add to previous draw Result Comment: CHOL ESTEROL REFERENCE RANGE: 20 YEARS AND OLDER CARDIOVASCULAR RISK Less than 200 mg/dl Low Risk 200 to 239 mg/dl Borderline Risk 240 mg/dl and greater High Risk Performed By: #### 3 5200, 66425, 37666, 50790 #### [facility] [address] [place] [address], [facility] Cholesterol in HDL [Mass/Vol] 76 mg/dL Normal 23-92 [facility] Comment on above: Order Comment: No: D o not add to previous draw Result Comment: Slig ht variation in normal range could be due to gender and/or age. HDL CHOLESTEROL REFERENCE RANGE: 20 years and older Cardiovascular Risk > or =60 mg/dL Desirable 40 TO 59 mg/dL Low Risk <40 mg/dL High Risk Performed By: #### 3 5200, 79497, 53801, 01484 #### [facility] [address] [place] [address], [facility] Cholesterol in LDL [Mass/Vol] 48 mg/dL Normal 0-130 [facility] Comment on above: Order Comment: No: D o not add to previous draw Result Comment: LDL IS A CALCULATION LDL IS ONLY VALID IF THE TRIG IS LESS THAN 400. Performed By: #### 3 5200, 90823, 77525, 70493 #### [facility] [address] [place] [address], [facility] Cholesterol.total/Cho lesterol in HDL [Mass ratio] 2.1 {ratio} Normal .0-4.5 [facility] Comment on above: Order Comment: No: D o not add to previous draw Performed By: #### 3 5200, 32641, 37759, 42903 #### [facility] [address] [place] [address], [facility] NON-HDL CHOLESTEROL 84 mg/dL Normal [facility] Comment on above: Order Comment: No: D o not add to previous draw Performed By: #### 3 5200, 97698, 11976, 81997 #### [facility] [address] [place] [address], [facility] Triglyceride [Mass/Vol] 179 mg/dL High 40-149 [facility] Comment on above: Order Comment: No: D o not add to previous draw Result Comment: TRIG LYCERIDE REFERENCE RANGE: 20 YEARS AND OLDER CARDIOVASCULAR RISK LESS THAN 150 mg/dl LOW RISK 150 TO 199 mg/dl BORDERLINE RISK 200 mg/dl AND GREATER HIGH RISK Performed By: #### 3 5200, 40252, 42043, 87330 #### [facility] [address] [place] [address], [facility] VLDL CHOL 36 mg/dL Normal 0-40 [facility] Comment on above: Order Comment: No: D o not add to previous draw Performed By: #### 3 5200, 63626, 15426, 33600 #### [facility] [address] [place] [address], [facility] POC GLUCOSE LABon 03-09-2022 Glucose [Mass/Vol] 105 mg/dL High 70-100 [facility] Comment on above: Performed By: #### 8 5499 ####[facility] POC SARS COV2 ANTIGEN NEGATI VEon 03-09-2022 POC SARS COV2 ANTIGEN NEG Negative Normal NEGATIVE [facility] Comment on above: Result Comment: [...] antigen from SARS-CoV-2 in direct nasopharyngeal swab (PHOTOGRAPHIC EQUIPMENT [employer]SEMBLER) specimens from individuals who are suspected of [...] Performed By: #### 3 2044 ####[facility] PORTABLE CHEST 1 VIEWon PORTABLE CHEST 1 VIEW [facility] Department of Radiology [address] [place] [id number] Patient Name: LISE CANALES : 1955 Sex: F Age: Race: White Pt. Location: [id number] Patient Status: I Ordered Date: 03/09/2022 8:55:00 [...] COPD. Electronically signed: Derek Ingram. Transcribed by: [email or web address], User Resident: Electronically Signed by: DEREK INGRAM @ 03/09/2022 02:48 PM Normal [facility] Comment on above: Order Comment: Check Chest Tube Position, S/P Chest tube DC'd TROPONIN-Ion 03-09-2022 Troponin I.cardiac [Mass/Vol] 0.00 ng/mL Normal 0.00-0.04 [facility] Comment on above: Order Comment: No: D o not add to previous draw Result Comment: REFE RENCE RANGES: 0.00 - 0.04 ng/ml NORMAL 0.05 - 0.50 ng/ml INDETERMINATE > 0.50 ng/ml CONSISTENT WITH AN M.I. Performed By: #### 3 5200, 90718, 12067, 28241 #### [facility] 3000 [facility]. [address] Troponin I.cardiac [Mass/Vol] 0.01 ng/mL Normal 0.00-0.04 [facility] Comment on above: Order Comment: No: D o not add to previous draw Result Comment: REFE RENCE RANGES: 0.00 - 0.04 ng/ml NORMAL 0.05 - 0.50 ng/ml INDETERMINATE > 0.50 ng/ml CONSISTENT WITH AN M.I. Performed By: #### 3 5200 #### [facility] [address] Troponin I.cardiac [Mass/Vol] 0.00 ng/mL Normal 0.00-0.04 [facility] Comment on above: Order Comment: No: D o not add to previous draw Result Comment: REFE RENCE RANGES: 0.00 - 0.04 ng/ml NORMAL 0.05 - 0.50 ng/ml INDETERMINATE > 0.50 ng/ml CONSISTENT WITH AN M.I. Performed By: #### 3 5200, 97619, 19764, 37497 #### [facility] [address] TSH3 WITH REFLEX FT4on 03-09 TSH 3RD GENERATION 0.60 uIU/mL Normal 0.34-5.60 [facility] Comment on above: Order Comment: No: D o not add to previous draw Performed By: #### 3 5200, 93209, 09202, 78646 #### [facility] [address] URINALYSIS REFLEXon 03-09-20 22 Appearance (U) CLEAR Normal CLEAR [facility] Comment on above: Order Comment: Check Chest Tube Position, S/P Chest tube DC'd Performed By: #### 3 0965 ####[facility] [facility] [place] [address], [facility] Bilirubin Ql (U) Negative Normal NEGATIVE [facility] Comment on above: Order Comment: Check Chest Tube Position, S/P Chest tube DC'd Performed By: #### 3 0965 ####[facility] [place] [address], [facility] Color (U) STRAW Abnormal YELLOW [facility] Comment on above: Order Comment: Check Chest Tube Position, S/P Chest tube DC'd Performed By: #### 3 0965 ####[facility] [place] [address], [facility] EPIS OCC Normal FEW,OCC,NONE SEEN [facility] Comment on above: Order Comment: Check Chest Tube Position, S/P Chest tube DC'd Performed By: #### 3 0965 ####[facility] [facility] [place] [address], [facility] Glucose Ql (U) Negative Normal NEGATIVE [facility] Comment on above: Order Comment: Check Chest Tube Position, S/P Chest tube DC'd Performed By: #### 3 0965 ####[facility] [facility] [place] [address], [facility] Hemoglobin Ql (U) MODERATE Abnormal NEGATIVE [facility] Comment on above: Order Comment: Check Chest Tube Position, S/P Chest tube DC'd Performed By: #### 3 0965 ####[facility] [facility] [place] [address], [facility] KETONE Negative Normal NEGATIVE [facility] Comment on above: Order Comment: Check Chest Tube Position, S/P Chest tube DC'd Performed By: #### 3 0965 ####[facility] [place] [address], [place] LEUK SHARMIN SMALL Abnormal NEGATIVE [facility] Comment on above: Order Comment: Check Chest Tube Position, S/P Chest tube DC'd Performed By: #### 3 0965 ####[facility] MUCUS THREADS OCC Abnormal NONE SEEN [facility] Comment on above: Order Comment: Check Chest Tube Position, S/P Chest tube DC'd Performed By: #### 3 0965 ####[facility] Nitrite Ql (U) Negative Normal NEGATIVE [facility] Comment on above: Order Comment: Check Chest Tube Position, S/P Chest tube DC'd Performed By: #### 3 0965 ####[facility] pH (U) 6.0 [pH] Normal 5.0-8.0 [facility] Comment on above: Order Comment: Check Chest Tube Position, S/P Chest tube DC'd Performed By: #### 3 0965 ####[facility] Protein Ql (U) Negative Normal NEGATIVE [facility] Comment on above: Order Comment: Check Chest Tube Position, S/P Chest tube DC'd Performed By: #### 3 0965 ####[facility] RBC 6-10 Abnormal NONE SEEN [facility] Comment on above: Order Comment: Check Chest Tube Position, S/P Chest tube DC'd Performed By: #### 3 0965 ####[place] [id number] [address] SPEC GRAV 1.015 Normal 1.015-1.020 [facility] Comment on above: Order Comment: Check Chest Tube Position, S/P Chest tube DC'd Performed By: #### 3 0965 ####[facility] [facility] [place] [address], [facility] WBC UA 11-20 Abnormal NONE SEEN [facility] Comment on above: Order Comment: Check Chest Tube Position, S/P Chest tube DC'd Performed By: #### 3 0965 ####[facility] [facility] [place] [address], [facility] CBC W MANUAL DIFFon 03-08-20 22 ATYPICAL LYMPH # Normal [facility] Comment on above: Performed By: #### C VDTBH #### [facility] [address] [place] [address] Dr. Kayley Hatfield ATYPICAL LYMPH % Normal [facility] Comment on above: Performed By: #### C VDTBH #### [facility] [address] [place] [address] Dr. Kayley Hatfield BAND # Normal 0.0-0.3 [facility] Comment on above: Performed By: #### C VDTBH #### [facility] [address] [place] [address] Dr. Kayley Hatfield BAND % Normal 0-5 [facility] Comment on above: Performed By: #### C VDTBH #### [facility] [address] [place] [address] Dr. Kayley Hatfield BASOM # 0.00 103/ul Normal 0.00-0.10 [facility] Comment on above: Performed By: #### C VDTBH #### [facility] [address] [place] [address] Dr. Kayley Hatfield BASOM % 0.0 % Critically low 0.2-2.0 [facility] Comment on above: Performed By: #### C VDTBH #### [facility] [address] [place] [address] Dr. Kayley Hatfield BLAST # Normal [facility] Comment on above: Performed By: #### C VDTBH #### [facility] [address] [place] [address] Dr. Kayley Hatfield BLAST % Normal [facility] Comment on above: Performed By: #### C VDTBH #### [facility] [address] [address] [address] Kayley Hatfield CORRECTED WBC Normal 4.0-11.0 [facility] Comment on above: Performed By: #### C VDTBH #### [facility] [address] [address] [address] Kayley Hatfield EOS # 0.14 103/ul Normal 0.00-0.70 [facility] Comment on above: Performed By: #### C VDTBH #### [facility] [address] [address] [address] Kayley Hatfield EOS% 1.0 % Normal 0.9-7.0 [facility] Comment on above: Performed By: #### C VDTBH #### [facility] [address] [place] [address] Dr. Kayley Hatfield HCT 27.5 % Critically low 36.0-48.0 [facility] Comment on above: Performed By: #### C VDTBH #### [facility] [address] [place] [address] Dr. Kayley Hatfield HGB 7.9 g/dl Critically low 12.0-16.0 [facility] Comment on above: Performed By: #### C VDTBH #### [facility] [address] [place] [address] Dr. Kayley Hatfield LYMPHM # 1.42 103/ul Normal 1.20-3.80 [facility] Comment on above: Performed By: #### C VDTBH #### [facility] [address] [place] [address] Dr. Kayley Hatfield LYMPHM% 10.0 % Critically low 20.5-60.0 [facility] Comment on above: Performed By: #### C VDTBH #### [facility] [address] [place] [address] Dr. Kayley Hatfield MCH 21.5 pg Critically low 26.7-34.0 [facility] Comment on above: Performed By: #### C VDTBH #### [facility] [address] [place] [address] Dr. Kayley Hatfield MCHC 28.7 g/dl Critically low 29.9-35.2 [facility] Comment on above: Performed By: #### C VDTBH #### [facility] [address] [place] [address] Dr. Kayley Hatfield MCV 74.7 fL Critically low 81.0-99.0 [facility] Comment on above: Performed By: #### C VDTBH #### [facility] [address] [place] [address] Dr. Kayley Hatfield METAMYELOCYTE # Normal [facility] Comment on above: Performed By: #### C VDTBH #### [facility] [address] [place] [address] Dr. Kayley Hatfield METAMYELOCYTE % Normal [facility] Comment on above: Performed By: #### C VDTBH #### [facility] [address] [place] [address] Dr. Kayley Hatfield MONOM# 2.13 103/ul Critically high 0.30-0.80 [facility] Comment on above: Performed By: #### C VDTBH #### [facility] [address] [place] [address] Dr. Kayley Hatfield MONOM% 15.0 % Critically high 1.7-12.0 [facility] Comment on above: Performed By: #### C VDTBH #### [facility] [address] [place] [address] Dr. Kayley Hatfield MPV 9.5 fL Normal 9.5-13.5 [facility] Comment on above: Performed By: #### C VDTBH #### [facility] [address] [place] [address] Dr. Kayley Hatfield MYELOCYTE # Normal [facility] Comment on above: Performed By: #### C VDTBH #### [facility] [address] [place] [address] Dr. Kayley Hatfield MYELOCYTE % Normal [facility] Comment on above: Performed By: #### C VDTBH #### [facility] [address] [address] [address] Kayley Hatfield NRBC Normal [facility] Comment on above: Performed By: #### C VDTBH #### [facility] [address] [place] [address] Dr. Kayley Hatfield PLT 180 103/ul Normal 150-450 [facility] Comment on above: Performed By: #### C VDTBH #### [facility] [address] [address] [address] Kayley Hatfield RBC 3.68 106/ul Critically low 4.20-5.40 [facility] Comment on above: Performed By: #### C VDTBH #### [facility] [address] [place] [address] Dr. Kayley Hatfield RDW 27.5 % Critically high 11.0-15.0 [facility] Comment on above: Performed By: #### C VDTBH #### [facility] [address] [place] [address] Dr. Kayley Hatfield SEG # 10.51 103/ul Critically high 1.40-6.50 [facility] Comment on above: Performed By: #### C VDTBH #### [facility] [address] [place] [address] Dr. Kayley Hatfield SEG % 74.0 % Normal 43.0-75.0 [facility] Comment on above: Performed By: #### C VDTBH #### [facility] [address] [place] [address] Dr. Kayley Hatfield WBC 14.2 103/ul Critically high 4.0-11.0 [facility] Comment on above: Performed By: #### C VDTBH #### [facility] [address] [place] [address] Dr. Kayley Hatfield PRBC LEUKOREDUCEDon 03-08-20 22 ABO and Rh group Nom (Bld) Cross Match Result Compatible Unit Blood Type O Pos Unit Number [id number] Status Information Transfused Product ID Red Blood Cells Product Code [id number] Cross Match Result Compatible Blood Bank Notes CALLED TO VIC IN ICU @1657 Unit Blood Type O Pos Unit Number [id number] Status Information Transfused Product ID Red Blood Cells Product Code [id number] Normal [facility] Comment on above: Performed By: #### P RBC #### [facility] [address] [place] [address] Dr. Kayley Hatfield PROF CHEM 8 (BAS METB)on Anion gap [Moles/Vol] 10.1 mmol/L Normal [facility] Comment on above: Performed By: #### B LDCX1 #### [facility] [address] [place] [address] Dr. Kayley Hatfield Calcium [Mass/Vol] 8.8 mg/dL Normal 8.5-10.1 [facility] Comment on above: Performed By: #### B LDCX1 #### [facility] [address] [place] [address] Dr. Kayley Hatfield Chloride [Moles/Vol] 100 mmol/L Normal 98-107 [facility] Comment on above: Performed By: #### B LDCX1 #### [facility] [address] [place] [address] Dr. Kayley Hatfield CO2 [Moles/Vol] 34.2 mmol/L Critically high 21.0-32.0 [facility] Comment on above: Performed By: #### B LDCX1 #### [facility] [address] [place] [address] Dr. Kayley Hatfield EGFR-AF VINCENTIAN >60 Normal >=60 [facility] Comment on above: Performed By: #### B LDCX1 #### [facility] [address] [place] [address] Dr. Kayley Hatfield EGFR-NON AF VINCENTIAN >60 Normal >=60 [facility] Comment on above: Performed By: #### B LDCX1 #### [facility] [address] [place] [address] Dr. Kayley Hatfield Glucose [Mass/Vol] 107 mg/dL Critically high 74-106 [facility] Comment on above: Performed By: #### B LDCX1 #### [facility] [address] [address] [address] Kayley Hatfield Potassium [Moles/Vol] 4.3 mmol/L Normal 3.5-5.1 [facility] Comment on above: Performed By: #### B LDCX1 #### [facility] [address] [address] [address] Kayley Hatfield Sodium [Moles/Vol] 140 mmol/L Normal 136-145 [facility] Comment on above: Performed By: #### B LDCX1 #### [facility] [address] [address] [address] Kayley Hatfield Urea nitrogen [Mass/Vol] 15.0 mg/dL Normal 7.0-18.0 [facility] Comment on above: Performed By: #### B LDCX1 #### [facility] [address] [place] [address] Dr. Kayley Hatfield Urea nitrogen/Creatinine [Mass ratio] 19.0 mg/mg Normal [facility] Comment on above: Performed By: #### B LDCX1 #### [facility] [address] [place] [address] Dr. Kayley Hatfield XR CHEST 1 Von [...] MIGUE REYNOSO Date: 2022-03-08 07:02 Normal [facility] CBC W MANUAL DIFFon 03-07-20 22 ACANTHOCYTES SLIGHT Normal [facility] Comment on above: Performed By: #### B [email or web address] #### [facility] [address] [place] [address] Dr. Kayley Hatfield ANISOCYTOSIS 2+ Normal [facility] Comment on above: Performed By: #### B [email or web address] #### [facility] [address] [place] [address] Dr. Kayley Hatfield ATYPICAL LYMPH # Normal [facility] Comment on above: Performed By: #### B LDCX1 #### [facility] [address] [place] [address] Dr. Kayley Hatfield ATYPICAL LYMPH % Normal [facility] Comment on above: Performed By: #### B LDCX1 #### [facility] [address] [place] [address] Dr. Kayley Hatfield BAND # 0.0 103/ul Normal 0.0-0.3 [facility] Comment on above: Performed By: #### B LDCX1 #### [facility] [address] [place] [address] Dr. Kayley Hatfield BAND % 0 % Normal 0-5 [facility] Comment on above: Performed By: #### B LDCX1 #### [facility] [address] [place] [address] Dr. Kayley Hatfield BASOM # 0.00 103/ul Normal 0.00-0.10 [facility] Comment on above: Performed By: #### B LDCX1 #### [facility] [address] [place] [address] Dr. Kayley Hatfield BASOM % 0.0 % Critically low 0.2-2.0 [facility] Comment on above: Performed By: #### B LDCX1 #### [facility] [address] [place] [address] Dr. Kayley Hatfield BLAST # Normal [facility] Comment on above: Performed By: #### B LDCX1 #### [facility] [address] [place] [address] Dr. Kayley Hatfield BLAST % Normal [facility] Comment on above: Performed By: #### B LDCX1 #### [facility] [address] [place] [address] Dr. Kaylye Hatfield ANDREE CELLS SLIGHT Normal [facility] Comment on above: Performed By: #### B [email or web address] #### [facility] [address] [place] [address] Dr. Kayley Hatfield CORRECTED WBC Normal 4.0-11.0 [facility] Comment on above: Performed By: #### B LDCX1 #### [facility] [address] [address] [address] Kayley Hatfield EOS # 0.16 103/ul Normal 0.00-0.70 [facility] Comment on above: Performed By: #### B LDCX1 #### [facility] [address] [place] [address] Dr. Kayley Hatfield EOS% 1.0 % Normal 0.9-7.0 [facility] Comment on above: Performed By: #### B [email or web address] #### [facility] [address] [place] [address] Dr. Kayley Hatfield GIANT PLATELETS SEEN Normal [facility] Comment on above: Performed By: #### B [email or web address] #### [facility] [address] [place] [address] Dr. Kayley Hatfield HCT 31.1 % Critically low 36.0-48.0 [facility] Comment on above: Performed By: #### B LDCX1 #### [facility] [address] [place] [address] Dr. Kayley Hatfield HGB 9.1 g/dl Critically low 12.0-16.0 [facility] Comment on above: Performed By: #### B [email or web address] #### [facility] [address] [place] [address] Dr. Kayley Hatfield HYPOCHROMASIA 1+ Normal [facility] Comment on above: Performed By: #### B [email or web address] #### [facility] [address] [place] [address] Dr. Kayley Hatfield LYMPHM # 2.09 103/ul Normal 1.20-3.80 [facility] Comment on above: Performed By: #### B [email or web address] #### [facility] [address] [place] [address] Dr. Kayley Hatfield LYMPHM% 13.0 % Critically low 20.5-60.0 [facility] Comment on above: Performed By: #### B [id number] #### [facility] [address] [place] [address] Dr. Kayley Hatfield MCH 21.4 pg Critically low 26.7-34.0 [facility] Comment on above: Performed By: #### B [id number] #### [facility] [address] [address] [address] Kayley Hatfield MCHC 29.3 g/dl Critically low 29.9-35.2 [facility] Comment on above: Performed By: #### B [id number] #### [facility] [address] [place] [address] Dr. Kayley Hatfield MCV 73.0 fL Critically low 81.0-99.0 [facility] Comment on above: Performed By: #### B [id number] #### [facility] [address] [place] [address] Dr. Kayley Hatfield METAMYELOCYTE # Normal [facility] Comment on above: Performed By: #### B [id number] #### [facility] [address] [place] [address] Dr. Kayley Hatfield METAMYELOCYTE % Normal [facility] Comment on above: Performed By: #### B [id number] #### [facility] [address] [place] [address] Dr. Kayley Hatfield MICROCYTOSIS SLIGHT Normal [facility] Comment on above: Performed By: #### B [id number] #### [facility] [address] [place] [address] Dr. Kayley Hatfield MONOM# 0.48 103/ul Normal 0.30-0.80 [facility] Comment on above: Performed By: #### B [id number] #### [facility] [address] [place] [address] Dr. Kayley Hatfield MONOM% 3.0 % Normal 1.7-12.0 [facility] Comment on above: Performed By: #### B [id number] #### [facility] [address] [address] [address] Kayley Hatfield MPV 8.9 fL Critically low 9.5-13.5 [facility] Comment on above: Performed By: #### B [id number] #### [facility] [address] [address] [address] Kayley Hatfield MYELOCYTE # Normal [facility] Comment on above: Performed By: #### B [id number] #### [facility] [address] [address] [address] Kayley Hatfield MYELOCYTE % Normal [facility] Comment on above: Performed By: #### B [id number] #### [facility] [address] [address] [address] Kayley Hatfield NRBC Normal [facility] Comment on above: Performed By: #### B [id number] #### [facility] [address] [place] [address] Dr. Kayley Hatfield PLT 243 103/ul Normal 150-450 [facility] Comment on above: Performed By: #### B [id number] #### [facility] [address] [address] [address] Kayley Hatfield RBC 4.26 106/ul Normal 4.20-5.40 [facility] Comment on above: Performed By: #### B [id number] #### [facility] [address] [place] [address] Dr. Kayley Hatfield RDW 27.1 % Critically high 11.0-15.0 [facility] Comment on above: Performed By: #### B [id number] #### [facility] [address] [place] [address] Dr. Kayley Hatfield SEG # 13.36 103/ul Critically high 1.40-6.50 [facility] Comment on above: Performed By: #### B [id number] #### [facility] [address] [place] [address] Dr. Kayley Hatfield SEG % 83.0 % Critically high 43.0-75.0 [facility] Comment on above: Performed By: #### B [id number] #### [facility] [address] [address] [address] Kayley Hatfield WBC 16.1 103/ul Critically high 4.0-11.0 [facility] Comment on above: Performed By: #### B [id number] #### [facility] [address] [place], [place] [id number] Dr. Kayley Hatfield CT CHEST WO CONon [...] ASAEL MALDONADO Date: 2022-03-07 09:42 Normal [facility] HEMOGLOBIN AND HEMATOCRITon 03-07-2022 Hematocrit (Bld) [Volume fraction] 31.8 % Critically low 36.0-48.0 [facility] Comment on above: Performed By: #### H GBHCT #### [facility] [address] [place] [address] Dr. Kayley Hatfield Hemoglobin (Bld) [Mass/Vol] 9.5 g/dL Critically low 12.0-16.0 [facility] Comment on above: Performed By: #### H GBHCT #### [facility] [address] [place] [address] Dr. Kayley Hatfield RETICULOCYTEon 03-07-2022 RETIC 1.92 % Normal 0.60-3.10 [facility] Comment on above: Performed By: #### O BSCRN #### [facility] [address] [place], [place] [address] Dr. Kayley Hatfield XR CHEST 1 Von [...] ASAEL MALDONADO Date: 2022-03-07 12:54 Normal [facility] XR CHEST 1 V EXAM: XR CHEST [...] ASAEL MALDONADO Date: 2022-03-07 07:10 Normal [facility] BNPon 03-06-2022 Natriuretic peptide B (Bld) [Mass/Vol] 441.0 pg/mL Normal <=900.0 [facility] Comment on above: Performed By: #### H GBHCT #### [facility] [address] [place] [address] Dr. Kayley Hatfield CBC AUTO DIFFon 03-06-2022 BASO # 0.1 103/ul Normal 0.0-0.1 [facility] Comment on above: Performed By: #### O BSCRN #### [facility] [address] [place] [address] Dr. Kayley Hatfield Basophils/100 WBC (Bld) 0.7 % Normal 0.2-2.0 [facility] Comment on above: Performed By: #### O BSCRN #### [facility] [address] [place] [address] Dr. Kayley Hatfield EO # 0.1 103/ul Normal 0.0-0.7 [facility] Comment on above: Performed By: #### O BSCRN #### [facility] [address] [place] [address] Dr. Kayley Hatfield Eosinophils/100 WBC (Bld) 0.7 % Critically low 0.9-7.0 [facility] Comment on above: Performed By: #### O BSCRN #### [facility] [address] [place] [address] Dr. Kayley Hatfield Erythrocyte distribution width (RBC) [Ratio] 20.0 % Critically high 11.0-15.0 [facility] Comment on above: Performed By: #### O BSCRN #### [facility] [address] [place] [address] Dr. Kayley Hatfield Hematocrit (Bld) [Volume fraction] 20.1 % Critically low 36.0-48.0 [facility] Comment on above: Performed By: #### O BSCRN #### [facility] [address] [place] [address] Dr. Kayley Hatfield Hemoglobin (Bld) [Mass/Vol] 4.9 g/dL Critically low 12.0-16.0 [facility] Comment on above: Performed By: #### O BSCRN #### [facility] [address] [address] [address] Kayley Hatfield IG # 0.12 10e3/ul Critically high 0.00-0.03 [facility] Comment on above: Performed By: #### O BSCRN #### [facility] [address] [address] [address] Kayley Hatfield IG % 0.8 % Critically high 0.0-0.5 [facility] Comment on above: Performed By: #### O BSCRN #### [facility] [address] [address] [address] Kayley Hatfield LYMPH # 1.0 103/ul Critically low 1.2-3.8 [facility] Comment on above: Performed By: #### O BSCRN #### [facility] [address] [place] [address] Dr. Kayley Hatfield Lymphocytes/100 WBC (Bld) 6.5 % Critically low 20.5-60.0 [facility] Comment on above: Performed By: #### O BSCRN #### [facility] [address] [address] [address] Kayley Hatfield MANUAL DIFF REQ NO Normal [facility] Comment on above: Performed By: #### O BSCRN #### [facility] [address] [address] [address] Kayley Hatfield MCH (RBC) [Entitic mass] 15.2 pg Critically low 26.7-34.0 [facility] Comment on above: Performed By: #### O BSCRN #### [facility] [address] [place] [address] Dr. Kayley Hatfield MCHC (RBC) [Mass/Vol] 24.4 g/dL Critically low 29.9-35.2 [facility] Comment on above: Performed By: #### O BSCRN #### [facility] [address] [place] [address] Dr. Kayley Hatfield MCV (RBC) [Entitic vol] 62.2 fL Critically low 81.0-99.0 [facility] Comment on above: Performed By: #### O BSCRN #### [facility] [address] [address] [address] Kayley Hatfield MONO # 0.5 103/ul Normal 0.3-0.8 [facility] Comment on above: Performed By: #### O BSCRN #### [facility] [address] [address] [address] Kayley Hatfield Monocytes/100 WBC (Bld) 3.5 % Normal 1.7-12.0 [facility] Comment on above: Performed By: #### O BSCRN #### [facility] [address] [address] [address] Kayley Hatfield NEUT # 13.2 103/ul Critically high 1.4-6.5 [facility] Comment on above: Performed By: #### O BSCRN #### [facility] [address] [place] [address] Dr. Kayley Hatfield Neutrophils/100 WBC (Bld) 87.8 % Critically high 43.0-75.0 [facility] Comment on above: Performed By: #### O BSCRN #### [facility] [address] [place] [address] Dr. Kayley Hatfield Platelet mean volume (Bld) [Entitic vol] 9.1 fL Critically low 9.5-13.5 [facility] Comment on above: Performed By: #### O BSCRN #### [facility] [address] [place] [address] Dr. Kayley Hatfield PLT 384 103/ul Normal 150-450 [facility] Comment on above: Performed By: #### O BSCRN #### [facility] [address] [address] [address] Kayley Hatfield RBC 3.23 106/ul Critically low 4.20-5.40 [facility] Comment on above: Performed By: #### O BSCRN #### [facility] [address] [place] [address] Dr. Kayley Hatfield WBC 15.1 103/ul Critically high 4.0-11.0 [facility] Comment on above: Performed By: #### O BSCRN #### [facility] [address] [place] [address] Dr. Kayley Hatfield CULTURE BLOODon 03-06-2022 Microscopic examination of blood, culture Culture Observations: NO GROWTH AT 5 DAYS. Normal [facility] Comment on above: Performed By: #### C VDTBH #### [facility] [address] [place] [address] Dr. Kayley Hatfield Performed By: #### B [id number] #### [facility] [address] [place] [address] Dr. Kayley Hatfield Covid-19 PCR ([facility])on 02-07 SARS-CoV-2 (COVID-19) RNA ELBA+probe Ql (Unsp spec) Not detected Normal NOT DETECTED [facility] Comment on above: Result Comment: When diagnostic [...] for this test is supported by the Rn Ed of Health and Human Service's declaration that [...] used). Performed By: #### C VDTBH #### [facility] [address] [place] [address] Dr. Kayley Hatfield ER URINE PROFILEon 2 Bilirubin Ql (U) Negative Normal NEGATIVE [facility] Comment on above: Performed By: #### P RBC #### [facility] [address] [place] [address] Dr. Kayley Hatfield Clarity (U) CLEAR Normal CLEAR [facility] Comment on above: Performed By: #### P RBC #### [facility] [address] [address] [address] Kayley Hatfield Color (U) LT. YELLOW Normal YELLOW [facility] Comment on above: Performed By: #### P RBC #### [facility] [address] [address] [address] Kayley [place] A micrscopic examination will be performed if indicated. Normal [facility] Comment on above: Performed By: #### P RBC #### [facility] [address] [place] [address] Dr. Kayley Hatfield Glucose Ql (U) Negative Normal NEGATIVE [facility] Comment on above: Performed By: #### P RBC #### [facility] [address] [place] [address] Dr. Kayley Hatfield Hemoglobin Ql (U) Negative Normal NEGATIVE [facility] Comment on above: Performed By: #### P RBC #### [facility] [address] [place] [address] Dr. Kayley Hatfield Ketones Ql (U) Negative Normal NEGATIVE [facility] Comment on above: Performed By: #### P RBC #### [facility] [address] [place] [address] Dr. Kayley Hatfield LEUKOCYTES Negative Normal NEGATIVE [facility] Comment on above: Performed By: #### P RBC #### [facility] [address] [place] [address] Dr. Kayley Hatfield Nitrite Ql (U) Negative Normal NEGATIVE [facility] Comment on above: Performed By: #### P RBC #### [facility] [address] [place] [address] Dr. Kayley Hatfield pH (U) 6.0 [pH] Normal 5-9 [facility] Comment on above: Performed By: #### P RBC #### [facility] [address] [place] [address] Dr. Kayley Hatfield SPEC GRAVITY 1.010 Normal 1.005-<=1.025 [facility] Comment on above: Performed By: #### P RBC #### [facility] [address] [place] [address] Dr. Kayley Hatfield UA PROTEIN Negative Normal NEGATIVE/ TRACE [facility] Comment on above: Performed By: #### P RBC #### [facility] [address] [place] [address] Dr. Kayley Hatfield UR MICRO IND NOT INDICATED Normal [facility] Comment on above: Performed By: #### P RBC #### [facility] [address] [place] [address] Dr. Kayley Hatfield Urobilinogen Qn (U) 0.2 {Lu'U}/dL Normal 0.2 - 1. 0 [facility] Comment on above: Performed By: #### P RBC #### [facility] [address] [place] [address] Dr. Kayley Hatfield FERRITINon 03-06-2022 Ferritin [Mass/Vol] 4.0 ng/mL Critically low 8.0-252.0 [facility] Comment on above: Performed By: #### O BSCRN #### [facility] [address] [place] [address] Dr. Kayley Hatfield IRON AND TIBCon 03-06-2022 % SATURATION 2.3 % Normal [facility] Comment on above: Performed By: #### C VDTBH #### [facility] [address] [place] [address] Dr. Kayley Hatfield Iron [Mass/Vol] 12.0 ug/dL Critically low 50.0-170.0 [facility] Comment on above: Performed By: #### C VDTBH #### [facility] [address] [place] [address] Dr. Kyaley Hatfield TIBC DIRECT 532.0 ug/dL Critically high 250.0-450.0 [facility] Comment on above: Performed By: #### C VDTBH #### [facility] [address] [place] [address] Dr. Kayley Hatfield OCC BLD IMMUNO SCREENon 02-07 OCCULT BLOOD Negative Normal NEGATIVE [facility] Comment on above: Performed By: #### O BSCRN #### [facility] [address] [address] [address] Kayley Hatfield PROF 14(COMP METB)on 022 Albumin [Mass/Vol] 3.6 g/dL Normal 3.4-5.0 [facility] Comment on above: Performed By: #### H GBHCT #### [facility] [address] [place] [address] Dr. Kayley Hatfield Albumin/Globulin [Mass ratio] 1.2 {ratio} Normal [facility] Comment on above: Performed By: #### H GBHCT #### [facility] [address] [address] [address] Kayley Hatfield ALP [Catalytic activity/Vol] 71 U/L Normal 46-116 [facility] Comment on above: Performed By: #### H GBHCT #### [facility] [address] [place] [address] Dr. Kayley Hatfield ALT [Catalytic activity/Vol] 20 U/L Normal 14-59 [facility] Comment on above: Performed By: #### H GBHCT #### [facility] [address] [address] [address] Kayley Hatfield Anion gap [Moles/Vol] 9.8 mmol/L Normal [facility] Comment on above: Performed By: #### H GBHCT #### [facility] [address] [place] [address] Dr. Kayley Hatfield AST [Catalytic activity/Vol] 12 U/L Critically low 15-37 [facility] Comment on above: Performed By: #### H GBHCT #### [facility] [address] [place] [address] Dr. Kayley Hatfield Bilirubin [Mass/Vol] 0.4 mg/dL Normal 0.2-1.0 [facility] Comment on above: Performed By: #### H GBHCT #### [facility] [address] [address] [address] Kayley Hatfield Calcium [Mass/Vol] 9.0 mg/dL Normal 8.5-10.1 [facility] Comment on above: Performed By: #### H GBHCT #### [facility] [address] [address] [address] Kayley Hatfield Chloride [Moles/Vol] 99 mmol/L Normal 98-107 [facility] Comment on above: Performed By: #### H GBHCT #### [facility] [address] [address] [address] Kayley Hatfield CO2 [Moles/Vol] 31.5 mmol/L Normal 21.0-32.0 [facility] Comment on above: Performed By: #### H GBHCT #### [facility] [address] [address] [address] Kayley Hatfield Creatinine [Mass/Vol] 0.89 mg/dL Normal 0.55-1.02 [facility] Comment on above: Performed By: #### H GBHCT #### [facility] [address] [address] [address] Kayley Hatfield EGFR-AF VINCENTIAN >60 Normal >=60 [facility] Comment on above: Performed By: #### H GBHCT #### [facility] [address] [address] [address] Kayley Hatfield EGFR-NON AF VINCENTIAN >60 Normal >=60 [facility] Comment on above: Performed By: #### H GBHCT #### [facility] [address] [address] [address] Kayley Hatfield Globulin (S) [Mass/Vol] 3.1 g/dL Normal [facility] Comment on above: Performed By: #### H GBHCT #### [facility] [address] [address] [address] Kayley Hatfield Glucose [Mass/Vol] 174 mg/dL Critically high 74-106 [facility] Comment on above: Performed By: #### H GBHCT #### [facility] [address] [address] [address] Kayley Hatfield Potassium [Moles/Vol] 4.3 mmol/L Normal 3.5-5.1 [facility] Comment on above: Performed By: #### H GBHCT #### [facility] [address] [id number] Kayley Hatfield Protein [Mass/Vol] 6.7 g/dL Normal 6.4-8.2 [facility] Comment on above: Performed By: #### H GBHCT #### [facility] [address] [id number] Kayley Hatfield Sodium [Moles/Vol] 136 mmol/L Normal 136-145 [facility] Comment on above: Performed By: #### H GBHCT #### [facility] [address] [address] [address] Kayley Hatfield Urea nitrogen [Mass/Vol] 17.0 mg/dL Normal 7.0-18.0 [facility] Comment on above: Performed By: #### H GBHCT #### [facility] [address] [address] [address] Kayley Hatfield Urea nitrogen/Creatinine [Mass ratio] 19.1 mg/mg Normal [facility] Comment on above: Performed By: #### H GBHCT #### [facility] [address] [address] [address] Kayley Hatfield TROPONIN, HIGH SENSITIVITYon 03-06-2022 HSTROP 7.0 pg/mL Normal 4.0-51.3 [facility] Comment on above: Result Comment: CUT- OFF POINTS HAVE BEEN ESTABLISHED BASED ON THE FOURTH UNIVERSAL DEFINITIONS OF MYOCARDIAL INFARCTION. THE UPPER REFERENCE LIMIT (URL) OF TROPONIN, DEFINED THE 99TH PERCENTILE OF cTnI DISTRIBUTION IN A REFERENCE POPULATION, HAS BEEN CONFIRMED THE DECISION THRESHOLD FOR RI DIAGNOSIS. Performed By: #### H GBHCT #### [facility] [address] [address] [address] Kayley Hatfield TYPE AND SCREENon 03-06-2022 TYPE AND SCREEN Negative Normal [facility] Comment on above: Performed By: #### C VDTBH #### [facility] [address] [id number] Kayley Hatfield XR CHEST 1 Von [...] MIGUE REYNOSO Date: 2022-03-06 16:10 Normal [facility] XR CHEST 1 V EXAMINATION: XR CHES [...] REYNOSO Date: 2022-03-06 14:39 Normal [facility] XR DEXA BONE DENSITYon 12-22 XR DEXA [...] MIGUE REYNOSO Date: 2021-12-22 17:05 Normal [facility] CARDIAC ABDIAZIZ ADMITon 022 CK [Catalytic activity/Vol] 21 U/L Critically low 26-192 [facility] Comment on above: Performed By: #### B [id number] #### [facility] [address] [address] [address] Kayley Hatfield CK.MB [Mass/Vol] 1.00 ng/mL Normal <=3.60 [facility] Comment on above: Performed By: #### B LDCX1 #### [facility] [address] [place] [address] Dr. Kayley Hatfield HSTROP 11.6 pg/mL Normal 4.0-51.3 [facility] Comment on above: Result Comment: CUT- OFF POINTS HAVE BEEN ESTABLISHED BASED ON THE FOURTH UNIVERSAL DEFINITIONS OF MYOCARDIAL INFARCTION. THE UPPER REFERENCE LIMIT (URL) OF TROPONIN, DEFINED THE 99TH PERCENTILE OF cTnI DISTRIBUTION IN A REFERENCE POPULATION, HAS BEEN CONFIRMED THE DECISION THRESHOLD FOR RI DIAGNOSIS. Performed By: #### B LDCX1 #### [facility] [address] [place] [address] Dr. Kayley Hatfield ROD 48 ng/mL Normal 9-82 [facility] Comment on above: Performed By: #### B LDCX1 #### [facility] [address] [place] [address] Dr. Kayley Hatfield CBC AUTO DIFFon 12-14-2021 BASO # 0.1 103/ul Normal 0.0-0.1 [facility] Comment on above: Performed By: #### P RBC #### [facility] [address] [place] [address] Dr. Kayley Hatfield Basophils/100 WBC (Bld) 0.9 % Normal 0.2-2.0 [facility] Comment on above: Performed By: #### P RBC #### [facility] [address] [place] [address] Dr. Kayley Hatfield EO # 0.1 103/ul Normal 0.0-0.7 [facility] Comment on above: Performed By: #### P RBC #### [facility] [address] [place] [address] Dr. Kayley Hatfield Eosinophils/100 WBC (Bld) 0.5 % Critically low 0.9-7.0 [facility] Comment on above: Performed By: #### P RBC #### [facility] [address] [place] [address] Dr. Kayley Hatfield Erythrocyte distribution width (RBC) [Ratio] 15.4 % Critically high 11.0-15.0 [facility] Comment on above: Performed By: #### P RBC #### [facility] [address] [place] [address] Dr. Kayley Hatfield Hematocrit (Bld) [Volume fraction] 29.3 % Critically low 36.0-48.0 [facility] Comment on above: Performed By: #### P RBC #### [facility] [address] [place] [address] Dr. Kayley Hatfield Hemoglobin (Bld) [Mass/Vol] 8.3 g/dL Critically low 12.0-16.0 [facility] Comment on above: Performed By: #### P RBC #### [facility] [address] [place] [address] Dr. Kayley Hatfield IG # 0.05 10e3/ul Critically high 0.00-0.03 [facility] Comment on above: Performed By: #### P RBC #### [facility] [address] [place] [address] Dr. Kayley Hatfield IG % 0.4 % Normal 0.0-0.5 [facility] Comment on above: Performed By: #### P RBC #### [facility] [address] [place] [address] Dr. Kayley Hatfield LYMPH # 1.2 103/ul Normal 1.2-3.8 [facility] Comment on above: Performed By: #### P RBC #### [facility] [address] [place] [address] Dr. Kayley Hatfield Lymphocytes/100 WBC (Bld) 10.6 % Critically low 20.5-60.0 [facility] Comment on above: Performed By: #### P RBC #### [facility] [address] [address] [address] Kayley Hatfield MANUAL DIFF REQ NO Normal [facility] Comment on above: Performed By: #### P RBC #### [facility] [address] [address] [address] Kayley Hatfield MCH (RBC) [Entitic mass] 21.4 pg Critically low 26.7-34.0 [facility] Comment on above: Performed By: #### P RBC #### [facility] [address] [address] [address] Kayley Hatfield MCHC (RBC) [Mass/Vol] 28.3 g/dL Critically low 29.9-35.2 [facility] Comment on above: Performed By: #### P RBC #### [facility] [address] [place] [address] Dr. Kayley Hatfield MCV (RBC) [Entitic vol] 75.5 fL Critically low 81.0-99.0 [facility] Comment on above: Performed By: #### P RBC #### [facility] [address] [place] [address] Dr. Kayley Hatfield MONO # 0.9 103/ul Critically high 0.3-0.8 [facility] Comment on above: Performed By: #### P RBC #### [facility] [address] [place] [address] Dr. Kayley Hatfield Monocytes/100 WBC (Bld) 7.6 % Normal 1.7-12.0 [facility] Comment on above: Performed By: #### P RBC #### [facility] [address] [place] [address] Dr. Kayley Hatfield NEUT # 9.2 103/ul Critically high 1.4-6.5 [facility] Comment on above: Performed By: #### P RBC #### [facility] [address] [place] [address] Dr. Kayley Hatfield Neutrophils/100 WBC (Bld) 80.0 % Critically high 43.0-75.0 [facility] Comment on above: Performed By: #### P RBC #### [facility] [address] [address] [address] Kayley Hatfield Platelet mean volume (Bld) [Entitic vol] 9.3 fL Critically low 9.5-13.5 [facility] Comment on above: Performed By: #### P RBC #### [facility] [address] [place] [address] Dr. Kayley Hatfield PLT 498 103/ul Critically high 150-450 [facility] Comment on above: Performed By: #### P RBC #### [facility] [address] [place] [address] Dr. Kayley Hatfield RBC 3.88 106/ul Critically low 4.20-5.40 [facility] Comment on above: Performed By: #### P RBC #### [facility] [address] [place] [address] Dr. Kayley Hatfield WBC 11.5 103/ul Critically high 4.0-11.0 [facility] Comment on above: Performed By: #### P RBC #### [facility] [address] [place] [address] Dr. Kayley Hatfield ER URINE PROFILEon 2 Bilirubin Ql (U) Negative Normal NEGATIVE [facility] Comment on above: Performed By: #### H GBHCT #### [facility] [address] [place] [address] Dr. Kayley Hatfield Clarity (U) CLEAR Normal CLEAR [facility] Comment on above: Performed By: #### H GBHCT #### [facility] [address] [place] [address] Dr. Kayley Hatfield Color (U) LT. YELLOW Normal YELLOW [facility] Comment on above: Performed By: #### H GBHCT #### [facility] [address] [place] [address] Dr. Kayley [place] A micrscopic examination will be performed if indicated. Normal [facility] Comment on above: Performed By: #### H GBHCT #### [facility] [address] [place] [address] Dr. Kayley Hatfield Glucose Ql (U) Negative Normal NEGATIVE [facility] Comment on above: Performed By: #### H GBHCT #### [facility] [address] [address] [address] Kayley Hatfield Hemoglobin Ql (U) TRACE-INTACT Abnormal NEGATIVE [facility] Comment on above: Performed By: #### H GBHCT #### [facility] [address] [place] [address] Dr. Kayley Hatfield Ketones Ql (U) Negative Normal NEGATIVE [facility] Comment on above: Performed By: #### H GBHCT #### [facility] [address] [address] [address] Kayley Hatfield LEUKOCYTES Negative Normal NEGATIVE [facility] Comment on above: Performed By: #### H GBHCT #### [facility] [address] [place] [address] Dr. Kayley Hatfield Nitrite Ql (U) Negative Normal NEGATIVE [facility] Comment on above: Performed By: #### H GBHCT #### [facility] [address] [place] [address] Dr. Kayley Hatfield pH (U) 6.5 [pH] Normal 5-9 [facility] Comment on above: Performed By: #### H GBHCT #### [facility] [address] [place] [address] Dr. Kayley Hatfield SPEC GRAVITY 1.015 Normal 1.005-<=1.025 [facility] Comment on above: Performed By: #### H GBHCT #### [facility] [address] [place] [address] Dr. Kayley Haftield UA PROTEIN Negative Normal NEGATIVE/ TRACE [facility] Comment on above: Performed By: #### H GBHCT #### [facility] [address] [address] [address] Kayley Hatfield UR MICRO IND INDICATED Normal [facility] Comment on above: Performed By: #### H GBHCT #### [facility] [address] [place] [address] Dr. Kayley Hatfield Urobilinogen Qn (U) 0.2 {Lu'U}/dL Normal 0.2 - 1. 0 [facility] Comment on above: Performed By: #### H GBHCT #### [facility] [address] [place] [address] Dr. Kayley Hatfield PROF 14(COMP METB)on 022 Albumin [Mass/Vol] 3.2 g/dL Critically low 3.4-5.0 [facility] Comment on above: Performed By: #### B [id number] #### [facility] [address] [place] [address] Dr. Kayley Hatfield Albumin/Globulin [Mass ratio] 0.8 {ratio} Normal [facility] Comment on above: Performed By: #### B [id number] #### [facility] [address] [place] [address] Dr. Kayley Hatfield ALP [Catalytic activity/Vol] 72 U/L Normal 46-116 [facility] Comment on above: Performed By: #### B [id number] #### [facility] [address] [place] [address] Dr. Kayley Hatfield ALT [Catalytic activity/Vol] 24 U/L Normal 14-59 [facility] Comment on above: Performed By: #### B [id number] #### [facility] [address] [place] [address] Dr. Kayley Hatfield Anion gap [Moles/Vol] 13.0 mmol/L Normal Th [facility] Comment on above: Performed By: #### B [id number] #### [facility] [address] [place] [address] Dr. Kayley Hatfield AST [Catalytic activity/Vol] 18 U/L Normal 15-37 [facility] Comment on above: Performed By: #### B [id number] #### [facility] [address] [place] [address] Dr. Kayley Hatfield Bilirubin [Mass/Vol] 0.3 mg/dL Normal 0.2-1.0 [facility] Comment on above: Performed By: #### B [id number] #### [facility] [address] [place] [address] Dr. Kayley Hatfield Calcium [Mass/Vol] 9.9 mg/dL Normal 8.5-10.1 [facility] Comment on above: Performed By: #### B [id number] #### [facility] [address] [place] [address] Dr. Kayely Hatfield Chloride [Moles/Vol] 98 mmol/L Normal 98-107 [facility] Comment on above: Performed By: #### B [id number] #### [facility] [address] [place] [address] Dr. Kayley Hatfield CO2 [Moles/Vol] 29.8 mmol/L Normal 21.0-32.0 [facility] Comment on above: Performed By: #### B [id number] #### [facility] [address] [place] [address] Dr. Kayley Hatfield Creatinine [Mass/Vol] 1.23 mg/dL Critically high 0.55-1.02 [facility] Comment on above: Performed By: #### B [id number] #### [facility] [address] [place] [address] Dr. Kayley Hatfield EGFR-AF VINCENTIAN 53 mL/min/1.73m2 Critically low >=60 [facility] Comment on above: Performed By: #### B [id number] #### [facility] [address] [place] [address] Dr. Kayley Hatfield EGFR-NON AF VINCENTIAN 44 mL/min/1.73m2 Critically low >=60 [facility] Comment on above: Performed By: #### B LDCX1 #### [facility] [address] [place] [address] Dr. Kayley Hatfield Globulin (S) [Mass/Vol] 3.9 g/dL Normal [facility] Comment on above: Performed By: #### B [id number] #### [facility] [address] [place] [address] Dr. Kayley Hatfield Glucose [Mass/Vol] 160 mg/dL Critically high 74-106 [facility] Comment on above: Performed By: #### B [id number] #### [facility] [address] [place] [address] Dr. Kayley Hatfield Potassium [Moles/Vol] 3.8 mmol/L Normal 3.5-5.1 [facility] Comment on above: Performed By: #### B [id number] #### [facility] [address] [place] [address] Dr. Kayley Hatfield Protein [Mass/Vol] 7.1 g/dL Normal 6.4-8.2 [facility] Comment on above: Performed By: #### B LDCX1 #### [facility] [address] [place] [address] Dr. Kayley Hatfield Sodium [Moles/Vol] 137 mmol/L Normal 136-145 [facility] Comment on above: Performed By: #### B [id number] #### [facility] [address] [place] [address] Dr. Kayley Hatfield Urea nitrogen [Mass/Vol] 20.0 mg/dL Critically high 7.0-18.0 [facility] Comment on above: Performed By: #### B [id number] #### [facility] [address] [place] [address] Dr. Kayley Hatfield Urea nitrogen/Creatinine [Mass ratio] 16.3 mg/mg Normal [facility] Comment on above: Performed By: #### B LDCX1 #### [facility] [address] [place] [address] Dr. Kayley Hatfield TROPONIN, HIGH SENSITIVITYon 12-14-2021 HSTROP 11.3 pg/mL Normal 4.0-51.3 [facility] Comment on above: Result Comment: CUT- OFF POINTS HAVE BEEN ESTABLISHED BASED ON THE FOURTH UNIVERSAL DEFINITIONS OF MYOCARDIAL INFARCTION. THE UPPER REFERENCE LIMIT (URL) OF TROPONIN, DEFINED THE 99TH PERCENTILE OF cTnI DISTRIBUTION IN A REFERENCE POPULATION, HAS BEEN CONFIRMED THE DECISION THRESHOLD FOR RI DIAGNOSIS. Performed By: #### P RTELEC #### [facility] [address] [place] [address] Dr. Kayley Hatfield URINE MICROSCOPIC ONLYon BACTERIA NONE SEEN Normal NONE SEEN [facility] Comment on above: Performed By: #### H GBHCT #### [facility] [address] [place], [place] [id number] Dr. Kayley Hatfield Bacteria identified Cx Nom (U) NOT INDICATED Normal [facility] Comment on above: Performed By: #### H GBHCT #### [facility] [address] [place] [address] Dr. Kayley Hatfield CAST SEEN Abnormal NONE SEEN [facility] Comment on above: Performed By: #### H GBHCT #### [facility] [address] [place] [address] Dr. Kayley Hatfield Crystals LM Nom (Urine sed) NONE SEEN Normal NONE SEEN [facility] Comment on above: Performed By: #### H GBHCT #### [facility] [address] [place] [address] Dr. Kayley Hatfield Epithelial cells LM Ql (Urine sed) FEW Abnormal NONE SEEN /RARE [facility] Comment on above: Performed By: #### H GBHCT #### [facility] [address] [place] [address] Dr. Kayley Hatfield HYALINE CAST RARE Normal [facility] Comment on above: Performed By: #### H GBHCT #### [facility] [address] [place] [address] Dr. Kayley Hatfield MUCOUS NONE SEEN Normal NONE SEEN [facility] Comment on above: Performed By: #### H GBHCT #### [facility] [address] [place] [address] Dr. Kayley Hatfield RBC 0-2 Normal 0-2 [facility] Comment on above: Performed By: #### H GBHCT #### [facility] [address] [place] [address] Dr. Kayley Hatfield WBC 0-2 Abnormal NONE SEEN [facility] Comment on above: Performed By: #### H GBHCT #### [facility] [address] [place] [address] Dr. Kayley Hatfield XR CHEST 1 Von [...] ASAEL MALDONADO Date: 2021-12-14 13:43 Normal [facility] BUNon 12-12-2021 Urea nitrogen [Mass/Vol] 15.0 mg/dL Normal 7.0-18.0 [facility] Comment on above: Performed By: #### P RBC #### [facility] [address] [place] [address] Dr. Kayley Hatfield CALCIUMon 12-12-2021 Calcium [Mass/Vol] 9.1 mg/dL Normal 8.5-10.1 [facility] Comment on above: Performed By: #### C VDTBH #### [facility] [address] [place] [address] Dr. Kayley Hatfield CREATININEon 12-12-2021 Creatinine [Mass/Vol] 1.05 mg/dL Critically high 0.55-1.02 [facility] Comment on above: Performed By: #### P RBC #### [facility] [address] [place] [address] Dr. Kayley Hatfield EGFR-AF VINCENTIAN >60 Normal >=60 [facility] Comment on above: Performed By: #### P RBC #### [facility] [address] [place] [address] Dr. Kayley Hatfield EGFR-NON AF VINCENTIAN 53 mL/min/1.73m2 Critically low >=60 [facility] Comment on above: Performed By: #### P RBC #### [facility] [address] [place] [address] Dr. Kayley Hatfield CRPon 12-12-2021 CRP [Mass/Vol] mg/L Normal <=1.0 [facility] Comment on above: Performed By: #### P RBC #### [facility] [address] [place] [address] Dr. Kayley Hatfield MAGNESIUMon 12-12-2021 Magnesium [Mass/Vol] 1.9 mg/dL Normal 1.8-2.4 [facility] Comment on above: Performed By: #### C VDTBH #### [facility] [address] [place] [address] Dr. Kayley Hatfield PHOSPHORUSon 12-12-2021 Phosphate [Mass/Vol] 4.1 mg/dL Normal 2.6-4.7 [facility] Comment on above: Performed By: #### C VDTBH #### [facility] [address] [place] [address] Dr. Kayley Hatfield SED RATE WESTERGREN 2021 SED RATE 35 mm/hr Critically high <=30 [facility] Comment on above: Performed By: #### P RTELEC #### [facility] [address] [place] [address] Dr. Kayley Hatfield Vital Signs Date Time Vital Sign Value Performing Clinician Facility 11-20-2024 10:50-0400 Body height 165.1 cm Erasto Burroughs MD Work Phone: [facility] 11-20-2024 10:50-0400 Body mass index (BMI) [Ratio] 15.48 kg/m2 Erasto Burroughs MD Work Phone: [facility] 11-20-2024 10:50-0400 Body temperature 97.11 [degF] Erasto Burroughs MD Work Phone: [facility] 11-20-2024 10:50-0400 Body weight 42.19 kg Erasto Burroughs MD Work Phone: [facility] 11-20-2024 10:50-0400 Diastolic blood pressure 60 mm[Hg] Erasto Burroughs MD Work Phone: [facility] 11-20-2024 10:50-0400 Heart rate 94 /min Erasto Burroughs MD Work Phone: [facility] 11-20-2024 10:50-0400 Respiratory rate 24 /min Erasto Burroughs MD Work Phone: [facility] 11-20-2024 10:50-0400 SaO2% (BldA) [Mass fraction] 96 % Erasto Burroughs MD Work Phone: [facility] 11-20-2024 10:50-0400 Systolic blood pressure 158 mm[Hg] Erasto Burroughs MD Work Phone: [facility] 10-09-2024 13:13-0400 Body height 165.1 cm Erasto Burroughs MD Work Phone: [facility] 10-09-2024 13:13-0400 Body mass index (BMI) [Ratio] 15.64 kg/m2 Erasto Burroughs MD Work Phone: [facility] 10-09-2024 13:13-0400 Body temperature 97.5 [degF] Erasto Burroughs MD Work Phone: [facility] 10-09-2024 13:13-0400 Body weight 42.64 kg Erasto Burroughs MD Work Phone: [facility] 10-09-2024 13:13-0400 Diastolic blood pressure 76 mm[Hg] Erasto Burroughs MD Work Phone: [facility] 10-09-2024 13:13-0400 Heart rate 109 /min Erasto Burroughs MD Work Phone: [facility] 10-09-2024 13:13-0400 Respiratory rate 22 /min Erasto Burroughs MD Work Phone: [facility] 10-09-2024 13:13-0400 SaO2% (BldA) [Mass fraction] 97 % Erasto Burroughs MD Work Phone: [facility] 10-09-2024 13:13-0400 Systolic blood pressure 130 mm[Hg] Erasto Burroughs MD Work Phone: [facility] 08-28-2024 14:50-0500 Body height 165.1 cm Erasto Burroughs MD Work Phone: [facility] 08-28-2024 14:50-0500 Body mass index (BMI) [Ratio] 16.97 kg/m2 Erasto Burroughs MD Work Phone: [facility] 08-28-2024 14:50-0500 Body temperature 97.11 [degF] Erasto Burroughs MD Work Phone: [facility] 08-28-2024 14:50-0500 Body weight 46.27 kg Erasto Burroughs MD Work Phone: [facility] 08-28-2024 14:50-0500 Diastolic blood pressure 40 mm[Hg] Erasto Burroughs MD Work Phone: [facility] 08-28-2024 14:50-0500 Heart rate 123 /min Erasto Burroughs MD Work Phone: [facility] 08-28-2024 14:50-0500 Respiratory rate 20 /min Erasto Burroughs MD Work Phone: [facility] 08-28-2024 14:50-0500 SaO2% (BldA) [Mass fraction] 94 % Erasto Burroughs MD Work Phone: [facility] 08-28-2024 14:50-0500 Systolic blood pressure 120 mm[Hg] Erasto Burroughs MD Work Phone: [facility] 07-17-2024 15:22-0500 Body mass index (BMI) [Ratio] 19.6 kg/m2 rEasto Burroughs MD Work Phone: [facility] 07-17-2024 15:22-0500 Body temperature 96.69 [degF] Erasto Burroughs MD Work Phone: [facility] 07-17-2024 15:22-0500 Body weight 53.43 kg Erasto Burroughs MD Work Phone: [facility] 07-17-2024 15:22-0500 Diastolic blood pressure 62 mm[Hg] Erasto Burroughs MD Work Phone: [facility] 07-17-2024 15:22-0500 Heart rate 76 /min Erasto Burroughs MD Work Phone: [facility] 07-17-2024 15:22-0500 SaO2% (BldA) [Mass fraction] 95 % Eratso Burroughs MD Work Phone: [facility] 07-17-2024 15:22-0500 Systolic blood pressure 150 mm[Hg] Erasto Burroughs MD Work Phone: [facility] 06-26-2024 11:32-0500 Body height 165.1 cm Erasto Burroughs MD Work Phone: [facility] 06-26-2024 11:32-0500 Body mass index (BMI) [Ratio] 18.14 kg/m2 Erasto Burroughs MD Work Phone: [facility] 06-26-2024 11:32-0500 Body temperature 97.11 [degF] Erasto Burroughs MD Work Phone: [facility] 06-26-2024 11:32-0500 Body weight 49.44 kg Erasto Burroughs MD Work Phone: [facility] 06-26-2024 11:32-0500 Diastolic blood pressure 58 mm[Hg] Erasto Burroughs MD Work Phone: [facility] 06-26-2024 11:32-0500 Heart rate 124 /min Erasto Burroughs MD Work Phone: [facility] 06-26-2024 11:32-0500 SaO2% (BldA) [Mass fraction] 98 % Erasto Burroughs MD Work Phone: [facility] 06-26-2024 11:32-0500 Systolic blood pressure 110 mm[Hg] Erasto Burroughs MD Work Phone: [facility] 06-26-2023 15:27-0500 Diastolic blood pressure 103 mm[Hg] MD Erasto Burroughs Work Phone: [facility] 06-26-2023 15:27-0500 Heart rate 81 /min MD Erasto Burroughs Work Phone: [facility] 06-26-2023 15:27-0500 Respiratory rate 18 /min MD Erasto Burroughs Work Phone: [facility] 06-26-2023 15:27-0500 SaO2% (BldA) [Mass fraction] 95 % MD Erasto Burroughs Work Phone: [facility] 06-26-2023 15:27-0500 Systolic blood pressure 162 mm[Hg] MD Erasto Burroughs Work Phone: [facility] 06-26-2023 13:44-0500 Body height 162.56 cm MD Erasto Burroughs Work Phone: [facility] 06-26-2023 13:44-0500 Body weight 59.87 kg MD Erasto Burroughs Work Phone: [facility] 06-26-2023 13:44-0500 Inhaled oxygen flow rate 2 L/min MD Erasto Burroughs Work Phone: [facility] Encounters Encounter Date Encounter Type Care Provider Facility Start: 12-25-2024 End: 12-25-2024 Refill Erasto Burroughs MD Work Phone: [facility] Comment on above: Degeneration of inte rvertebral disc of lumbar region with discogenic back pain and lower extremity pain (Primary Dx) Start: 12-19-2024 End: 12-19-2024 ambulatory ABDIAZIZ THOMAS Not Available Start: 12-19-2024 End: 12-19-2024 Patient encounter procedure Abdiaziz Thomas MD Work Phone: [facility] Comment on above: Weakness of lower ex tremity, unspecified laterality (Primary Dx); Femoral neuropathy, left; Paresthesias Start: 12-15-2024 End: 12-15-2024 Telephone encounter Abdiaziz Tohmas MD Work Phone: [facility] Start: 12-11-2024 End: 12-11-2024 Telephone encounter Abdiaziz Thomas MD Work Phone: [facility] 111 Start: 12-10-2024 End: 12-10-2024 ambulatory Enmanuel Bond [facility] Work Phone: Start: 12-10-2024 End: 12-10-2024 Departed Referred Enmanuel Bond DO Work Phone: [facility] Start: 12-10-2024 End: 12-11-2024 Clinisync Result Encounter Generic External Data Provider [facility] External Department Unsolicited Start: 12-10-2024 End: 12-11-2024 Clinisync Result Encounter Generic External Data Provider [...] [facility] Start: 11-20-2024 End: 11-20-2024 Office outpatient visit 25 minutes Erasto Burroughs MD Work Phone: [facility] Comment on above: Bullous emphysema (C MS/HCC) (Primary Dx); Degeneration of intervertebral disc of lumbar region with discogenic back pain and lower extremity pain; Lumbar radiculopathy; Numbness; Leg pain, left; Leg pain, right; Bilateral leg weakness Start: 11-20-2024 End: 11-20-2024 ambulatory ERASTO BURROUGHS Not Available Start: 11-10-2024 End: 11-10-2024 ambulatory Ihsan BROWN Facility: [facility] Start: 11-06-2024 End: 11-06-2024 Refill Erasto Burroughs MD Work Phone: [facility] Comment on above: Degeneration of inte rvertebral disc of lumbar region with discogenic back pain and lower extremity pain Start: 10-29-2024 End: 10-29-2024 Refill Erasto Burroughs MD Work Phone: [facility] Comment on above: DDD (degenerative di sc disease), lumbar Start: 10-27-2024 End: 10-27-2024 Clinisync Result Encounter Generic External Data Provider [facility] External Department Unsolicited Start: 10-27-2024 End: 10-27-2024 Clinisync Result Encounter Generic External Data Provider [facility] External Department Unsolicited Start: 10-21-2024 End: 10-21-2024 Refill Erasto Burroughs MD Work Phone: [facility] Comment on above: Degeneration of inte rvertebral disc of lumbar region with discogenic back pain and lower extremity pain Start: 10-10-2024 End: 10-10-2024 Clinisync Result Encounter Generic External Data Provider [facility] External Department Unsolicited Start: 10-10-2024 End: 10-10-2024 Clinisync Result Encounter Generic External Data Provider [facility] External Department Unsolicited Start: 10-09-2024 End: 10-09-2024 Bamboo flowsheet Erasto Burroughs MD Work Phone: [facility] Start: 10-09-2024 End: 10-09-2024 Bamboo flowsheet Erasto Burroughs MD Work Phone: [facility] Start: 10-09-2024 End: 10-09-2024 ambulatory ERASTO BURROUGHS Not Available Start: 10-09-2024 End: 10-09-2024 Office outpatient visit 25 minutes Erasto Burroughs MD Work Phone: [facility] Comment on above: Degeneration of inte [...] Chronic obstructive pulmonary disease, unspecified COPD type ([facility]) Start: 08-28-2024 End: 08-28-2024 ambulatory ERASTO BURROUGHS [...] lung (Primary Dx); COPD with acute exacerbation ([facility]); Pleurisy Start: 07-17-2024 End: 07-17-2024 ambulatory ERASTO BURROUHGS Not Available Start: 07-17-2024 End: 07-17-2024 Bamboo flowsheet Erasto Burroughs MD Work Phone: [facility] Start: 07-17-2024 End: 07-17-2024 Bamboo flowsheet Erasto Burroughs MD Work Phone: [facility] Start: 07-09-2024 End: 07-09-2024 ambulatory Gt Wyatt [facility] Work Phone: Start: 07-09-2024 End: 07-09-2024 Departed Referred Gt Wyatt MD Work Phone: [facility] Start: 07-08-2024 End: 07-08-2024 ambulatory Gt Wyatt [facility] Work Phone: Start: 07-08-2024 End: 07-08-2024 Departed Referred Gt Wyatt MD Work Phone: [facility] Start: 07-07-2024 End: 07-09-2024 Clinisync Result Encounter Generic External Data Provider [facility] External Department Unsolicited Start: 07-07-2024 End: 07-09-2024 Clinisync Result Encounter Generic External Data Provider [facility] External Department Unsolicited Start: 06-26-2024 End: 06-26-2024 Bamboo flowsheet Erasto Burroughs MD Work Phone: [facility] Start: 06-26-2024 End: 06-28-2024 Bammihaela flowsnani Burroughs MD Work Phone: [facility] Start: 06-26-2024 End: 06-28-2024 Clinisync Result Encounter Generic External Data Provider [facility] External Department Unsolicited Start: 06-26-2024 End: 06-26-2024 Office outpatient visit 25 minutes Erasto Burroughs MD Work Phone: [facility] Comment on above: Dehydration (Primary Dx); Fever, unspecified fever cause; COPD with acute exacerbation ([facility]) Start: 06-26-2024 End: 06-26-2024 ambulatory ERASTO BURROUGHS Not Available Start: 06-08-2024 End: 06-08-2024 Non-patient / Non-visit Gt Wyatt MD Work Phone: [facility] Work Phone: Start: 06-07-2024 End: 06-10-2024 Clinisync [...] Start: 05-12-2024 End: 05-12-2024 ambulatory Ihsan BROWN Facility:[facility] Start: 04-29-2024 End: 04-30-2024 Refill Erasto Burroughs MD Work Phone: [facility] Comment on above: DDD (degenerative di sc disease), lumbar Start: 03-12-2024 End: 03-12-2024 Orders Only Erasto Burroughs MD Work Phone: [facility] Comment on above: Type 2 diabetes vickey itus with hyperglycemia, without long-term current use of insulin ([facility]) (Primary Dx) Start: 03-11-2024 End: 03-12-2024 Clinisync Result Encounter Erasto Burroughs MD Work Phone: [facility] External Department Unsolicited Start: 03-11-2024 End: 03-12-2024 Clinisync Result Encounter Erasto Burroughs MD Work Phone: [facility] External Department Unsolicited Start: 02-21-2024 End: 02-21-2024 ambulatory ERASTO BURROUGHS Not Available Start: 01-07-2024 End: 01-07-2024 ambulatory [facility] Start: 08-18-2023 Refill Erasto Leggett Work Phone: [facility] Comment on above: DDD (degenerative di sc disease), lumbar (Primary Dx) Start: 06-27-2023 ambulatory [facility] Start: 06-26-2023 End: 06-26-2023 Admission to same day surgery center MD Erasto Burroughs Work Phone: [facility] Work Phone: Start: 06-26-2023 End: 06-26-2023 ambulatory MD Erasto Burroughs Work Phone: [facility] Work Phone: Start: 06-05-2023 Evaluation and manag ement of inpatient KONG BEAULIEU [facility] Start: 06-05-2023 [facility] Start: 06-05-2023 Evaluation and manag ement of inpatient [facility] Start: 06-04-2023 End: 06-06-2023 Evaluation and management of inpatient AVINASH SERRANO [facility] Start: 10-31-2022 End: 11-01-[address] ERASTO BURROUGHS Facility:[facility] Start: 10-10-2022 End: 10-11-[address] ERASTO BURROUGHS Facility:[facility] Start: 05-01-2022 End: 05-02-[address] ERASTO BURROUGHS Facility:[facility] Start: 05-01-[address] ERASTO BURROUGHS Facil ity:[facility] Start: 04-25-2022 End: 04-26-[address] ERASTO BURROUGHS Facility:[facility] Start: 04-04-2022 Encounter for genera l adult medical examination without abnormal findings DR ERASTO BURROUGHS [facility] Start: 03-30-[address] ERASTO BURROUGHS Facil ity:[facility] Start: 03-29-2022 Encounter for genera l adult medical examination without abnormal findings DR ERASTO BURROUGHS [facility] Start: 03-28-2022 End: 03-30-2022 Evaluation and management of inpatient DR ERASTO BURROUGHS Facility:[facility] Start: 03-28-2022 End: 03-29-[address] ERASTO BURROUGHS Facility:[facility] Start: 03-28-2022 End: 03-29-2022 Encounter for general adult medical examination without abnormal findings DR ERASTO BURROUGHS Facility:[facility] Start: 03-08-2022 End: 03-15-2022 Evaluation and management of inpatient IMAN WILLIS Facility:[facility] Start: 03-06-2022 End: 03-08-2022 Evaluation and management of inpatient DR ERASTO BURROUGHS Facility:[facility] Start: 12-22-2021 End: 12-23-[address] ERASTO BURROUGHS Facility:[facility] Start: 12-14-2021 End: 12-14-[address] ERASTO BURROUGHS Facility:[facility] Start: 12-12-2021 End: 12-13-[address] ERASTO BURROUGHS Facility:[facility] Procedures Date Procedure Procedure Detail Performing Clinician Start: 12-10-2024 URINE CULTURE - [facility] Generic External Data Provider Start: 12-02-2024 ALL SED RATE Generic External [...] Screening for malign ant neoplasm of colon [facility] Start: 04-15-2026 Glaucoma screening Diabetes: R etinopathy Screening [facility] Start: 10-10-2025 Urine screening for protein Diabetes: Urine Protein Screening [facility] Start: 03-09-2025 Influenza vaccination Influenz a Vaccine (Season Ended) [facility] Start: 01-12-2025 End: 01-12-2025 Patient encounter procedure 01/12/2025 1:45 PM EDT Office Visit [facility] [address] [place] [phone] Erasto Burroughs MD [address] [place] [phone] [facility] Start: 01-08-2025 End: 01-08-2025 Patient encounter procedure 01/08/2025 12:45 PM EDT Office Visit MICHELLE GUEVARA [address] [place] [address] June BeckDO [address] [place], [place] [id number] [facility] Start: 01-07-2025 End: 01-07-2025 Patient encounter procedure 01/07/2025 11:15 AM EDT Office Visit [facility] [address] [place] [phone] Erasto Burroughs MD [address] [place] [phone] [facility] Start: 12-19-2024 End: 12-19-2024 Patient encounter procedure 12/19/2024 9:30 AM EDT Procedure Visit [facility] JOS[facility] MIGUEL B [address] [place] [address] Abdiaziz Thomas MD [address] [place] [address] [facility] Start: 12-12-2024 End: 12-12-2024 Patient encounter procedure 12/12/2024 1:15 PM EDT Procedure Visit [facility] [address] [place] [address] Abdiaziz Thomas MD [address] [facility] [address] [place] [address] [facility] Start: 12-10-2024 Urine culture [facility] Start: 12-10-2024 Bacteria identified in Urine by Culture Urine Culture [facility] Start: 11-20-2024 End: 11-20-2025 EMG AND NERVE CONDUCTION STUDY EMG AND NERVE CONDUCTION STUDY Neurology Routine Numbness Leg pain, left Leg pain, right Bilateral leg weakness Expected: 11/20/2024 (Approximate), Expires: 11/20/2025 [facility] Work Phone: Comment on above: Expected: 11/20/2024 (Approximate), Expires: 11/20/2025 Start: 11-20-2024 End: 11-20-2024 Patient encounter procedure 11/20/2024 10:45 AM EDT Office Visit [facility] [address] [place] [phone] Erasto Burroughs MD [address] [place] [phone] Arrived [facility] Comment on above: Arrived Start: 10-09-2024 End: 10-09-2025 Basic metabolic 1998 panel - Serum or Plasma Basic metabolic panel Lab Routine Essential hypertension, benign (CMS/HCC) Expected: 10/09/2024 (Approximate), Expires: 10/09/2025 [facility] Comment on above: Expected: 10/09/2024 (Approximate), Expires: 10/09/2025 Start: 10-09-2024 End: 10-09-2025 CBC W Auto Differential panel - Blood CBC and differential Lab Routine Encounter for long-term (current) use of medications Expected: 10/09/2024 (Approximate), Expires: 10/09/2025 [facility] Comment on above: Expected: 10/09/2024 (Approximate), Expires: 10/09/2025 Start: 10-09-2024 End: 10-09-2025 Hemoglobin A1c/Hemoglobin.total in Blood Hemoglobin A1c Lab Routine Type 2 diabetes mellitus with hyperglycemia, without long-term current use of insulin ([facility]) Expected: 10/09/2024 (Approximate), Expires: 10/09/2025 [facility] Comment on above: Expected: 10/09/2024 (Approximate), Expires: 10/09/2025 Start: 10-09-2024 End: 10-09-2025 Hepatic function 2000 panel - Serum or Plasma Hepatic function panel Lab Routine Encounter for long-term (current) use of medications Expected: 10/09/2024 (Approximate), Expires: 10/09/2025 [facility] Comment on above: Expected: 10/09/2024 (Approximate), Expires: 10/09/2025 Start: 10-09-2024 End: 10-09-2025 Lipid 1996 panel - Serum or Plasma Lipid panel Lab Routine Dyslipidemia ([facility]) Expected: 10/09/2024 (Approximate), Expires: 10/09/2025 [facility] Comment on above: Expected: 10/09/2024 (Approximate), Expires: 10/09/2025 Start: 10-09-2024 End: 10-09-2025 Microalbumin/Creatinine panel in random Urine Microalbumin / creatinine, urine ratio Lab Routine Type 2 diabetes mellitus with hyperglycemia, without long-term current use of insulin ([facility]) Expected: 10/09/2024 (Approximate), Expires: 10/09/2025 [facility] Work Phone: Comment on above: Expected: 10/09/2024 (Approximate), Expires: 10/09/2025 Start: 10-09-2024 End: 10-09-2024 Patient encounter procedure 10/09/2024 1:00 PM EDT Office Visit [facility] [address] [place] [address] Erasto Burroughs MD [address] [place] [phone] [facility] Start: 09-08-2024 Hemoglobin A1c measurement Diabetes: Hemoglobin A1C [facility] Start: 08-28-2024 End: 08-28-2024 Patient encounter procedure 08/28/2024 2:45 PM EST Office Visit [facility] [address] [place] [address] Erasto Burroughs MD [address] [place] [phone] Arrived [facility] Comment on above: Arrived Start: 08-28-2024 End: 08-28-2025 XR Chest 2 Views XR chest 2 views Imaging STAT Acute bronchitis due to other specified organisms Chronic obstructive pulmonary disease, unspecified COPD type ([facility]) Expected: 08/28/2024, Expires: 08/28/2025 [facility] Work Phone: Comment on above: Expected: 08/28/2024 , Expires: 08/28/2025 Start: 07-17-2024 End: 07-17-2024 Patient encounter procedure 07/17/2024 3:15 PM EST Office Visit [facility] [address] [place] [address] Erasto Burroughs MD [address] [place] [phone] Arrived [facility] Comment on above: Arrived Start: 07-11-2024 End: 07-11-2024 Patient encounter procedure 07/11/2024 11:45 AM EST Office Visit [facility] [address] [place] [phone] Erasto Burroughs MD [address] [place] [phone] [facility] Start: 07-09-2024 Bacteria identified in Urine by Culture Urine Culture [facility] Start: 07-09-2024 Urine culture [facility] Start: 07-08-2024 Aerobic Culture Aerobic Culture [facility] Start: 07-08-2024 Aerobic microbial culture Aerobic Culture [facility] Start: 07-08-2024 Microbial culture of sputum [facility] Start: 06-26-2024 End: 06-26-2024 Patient encounter procedure 06/26/2024 11:30 AM EST Office Visit [facility] [address] [place] [address] Erasto Burroughs MD [address] [place] [phone] Arrived [facility] Comment on above: Arrived Start: 06-06-2024 Urine screening for protein Diabetes: Urine Protein Screening [facility] Start: 05-27-2024 End: 05-27-2024 Patient encounter procedure 05/27/2024 1:30 PM EST Office Visit [facility] [address] [place] [address] Erasto Burroughs MD [address] [place] [phone] [facility] Start: 03-09-2024 Influenza vaccination Influenza Vacc ine (#1) [facility] Start: 12-04-2023 Hemoglobin A1c measurement Diabetes: Hemoglobin A1C [facility] Start: 09-05-2023 Hemoglobin A1c measurement Diabetes: Hemoglobin A1C [facility] Start: 08-27-2023 End: 08-27-2023 Patient encounter procedure 08/27/2023 2:30 PM EST Office Visit [facility] [address] [place] [address] Erasto Burroughs MD [address] [place] [phone] [facility] Start: 06-26-2023 [facility] Start: 03-09-2023 Influenza vaccination Influenza Vacc ine (#1) [facility] Start: 1997 Screening for malign ant neoplasm of breast Mammogram [facility] Start: 1976 Urine screening for protein Diabetes: Urine Protein Screening [facility] Start: 1967 Glaucoma screening Diabetes: R etinopathy Screening [facility] Start: 1957 Medicare Annual Wellness (AWV) Medicare Annual Wellness (AWV) [facility] Start: 1957 Screening for malign ant neoplasm of colon [facility] Start: 1957 Screening for malign ant neoplasm of lung Lung Cancer Screening Shared Decision Making [facility] BLOOD CULTURE 1 BLOOD CULTURE 1 Lab Routine 06/06/2024 10:14 AM EST [facility] BLOOD CULTURE 1 BLOOD CULTURE 1 Lab Routine 06/26/2024 12:25 PM EST [facility] BLOOD CULTURE 1 BLOOD CULTURE 1 Lab Routine 07/07/2024 1:37 PM EST [facility] BLOOD CULTURE 2 BLOOD CULTURE 2 Lab Routine 06/06/2024 10:21 AM EST [facility] BLOOD CULTURE 2 BLOOD CULTURE 2 Lab Routine 06/26/2024 2:51 PM EST [facility] BLOOD CULTURE 2 BLOOD CULTURE 2 Lab Routine 07/07/2024 1:32 PM EST [facility] Patient Education [facility] Work Phone: URINE CULTURE - [facility] URINE CULTU RE - [facility] Lab Routine 12/10/2024 3:00 PM EDT [facility] Payers Date Payer Category Payer Self-pay [id number] 2022 Private Health Insurance [facility] [id number] 2022 Unknown [employer] [id number] 2022-Present [phone] [address] [address] [place] [address] [id number] 2013 Medicare [id number] [id number]. 2.7.3.619891.315 1959 Medicare [id number] 1959 Unknown [id number] 1959 Unknown [id number] 1957 Unknown [id number] 2.16.840.1.902886.3.579. 2.647 1957 Unknown [id number] 2.16.840.1.996325.3.579. 2.593 1957 Unknown [id number] 2.16.840.1.201199.3.579. 2.593 1957 Unknown [id number] 2.16.840.1.073142.3.579. 2.593 1957 Unknown [id number] 2.16.840.1.399584.3.579. 2.593 1957 Unknown [id number] 2.16.840.1.926214.3.579. 2.593 1957 Unknown [id number] 2.16.840.1.869166.3.579. 2.593 1957 Unknown [id number] 2.16.840.1.928263.3.579. 2.593 1957 Unknown [id number] 2.16.840.1.790687.3.579. 2.593 1957 Unknown [id number] 2.16.840.1.381798.3.579. 2.593 1957 Unknown [id number] 2.16.840.1.101972.3.579. 2.593 1957 Unknown [id number] 2.16.840.1.810570.3.579. 2.593 1957 Unknown [id number] 2.16.840.1.696906.3.579. 2.593 1957 Unknown [id number] 2.16.840.1.503307.3.579. 2.593 1957 Unknown [id number] 2.16.840.1.356536.3.579. 2.727 1957 Unknown [id number] 2.16.840.1.667651.3.579. 2.727 1957 Unknown [id number] 2.16.840.1.107414.3.579. 2.125 1957 Unknown [id number] 2.16.840.1.670285.3.579. 2.1259 1957 Unknown [id number] 2.16.840.1.986594.3.579. 2.125 1957 Unknown [id number] 2.16.840.1.916857.3.579. 2.1259 1957 Unknown [id number] 2.16.840.1.815712.3.579. 2.125 1957 Unknown [id number] 2.16.840.1.592891.3.579. 2.1259 1957 Unknown [id number] 2.16.840.1.769597.3.579. 2.1259 Medicare Medicare [id number] Unknown [id number] 2.16.840.1.976063.3.579. 2.531 Unknown [id number] 2.16.840.1.150511.3.579. 2.531 Unknown [id number] 2.16.840.1.866034.3.579. 2.531 Social History Date Type Detail Facility Start: 06-14-2023 End: 06-26-2023 Tobacco smoking status NHIS Ex-smoker (finding) [facility] Start: 1955 Sex Assigned At Female F [facility] Start: 03-06-1982 End: 03-06-2022 History of tobacco use Current smoker [facility] Start: 03-06-1982 End: 03-06-2022 History of tobacco use Cigarette Smoker [facility] Start: 06-14-2023 End: 11-20-2024 Cigarettes smoked current (pack per day) - Reported 2 [facility] Start: 06-14-2023 Tobacco use and exposure Smokeless tobacco non-user [facility] Start: 06-14-2023 End: 11-20-2024 Alcohol intake Ex-drinker (finding) [facility] Start: 06-14-2023 End: 11-20-2024 Tobacco use panel [facility] Start: 06-14-2023 Alcohol Comment caffine-2 cups daily [facility] Start: 1955 Sex Assigned At Not on file [facility] Start: 07-09-2024 End: 12-12-2024 Sex Female (finding) [facility] Goals Date Patient Goal Desired Activity /State Clinical Notes 03-09-2022 to 12-19-2024 Abdiaziz Thomas MD - 12/19/2024 9:30 AM EDTTelephone Encounter - Wilmar Beltran - 12/15/2024 2:17 PM EDTTelephone Encounter - Wilmar Beltran - 12/15/2024 2:17 PM Enedelia Burroughs MD - 11/20/2024 12:26 PM EDT Note Date & Type Note Facility 12-19-2024 History of Present illness Narrative [facility] Patient: Lise Covert [address], [address] , Sex: 1955, Female [place], [place] [address] Height: cm Ref Phys: Marycruz Lopez fax Electroneuromyogram ([facility]) Test Date: 2024-12-19 Patient Complaints: Weakness L leg since Jul 2024, R leg more recently. Numbness, burning pain, paraesthesiae. Nerve Conduction Studies Anti Sensory Summary Table Site NR Peak (ms) Norm Peak (ms) P-T* Amp ( V) Norm P-T Amp Site1 Site2 Delta-0 (ms) Dist (cm) Tristen (m/s) Norm Tristen (m/s) Left Saphenous ([place]el's) Anti Sensory (med mall) med leg NR <4.41 >5.0 med leg med mall 14.0 >38.2 Right Saphenous ([place]'s) Anti Sensory (med mall) med leg NR <4.41 >5.0 med leg med mall 14.0 >38.2 Left Superf Peron (Last's) Anti Sensory (Ant Lat Mall) Calf 4.4 <4.61 2.1 >3.99 Calf Ant Lat Mall 3.8 14.0 37 >40.49 Right Superf Peron (Last's) Anti Sensory (Ant Lat Mall) Calf 5.0 <4.61 1.1 >3.99 Calf Ant Lat Mall 4.3 14.0 33 >40.49 Left Sural Anti Sensory (Lat Mall) Calf 4.8 <3.91 0.8 >5.99 Calf Lat Mall 3.9 14.0 36 >36.9 Right Sural Anti Sensory (Lat Mall) Calf 4.7 <3.91 2.4 >5.99 Calf Lat Mall 3.8 14.0 37 >36.9 Motor Summary Table Site NR Onset (ms) Norm Onset (ms) O-P* Amp (mV) Norm O-P Amp Neg Dur (ms) Site1 Site2 Delta-0 (ms) Dist (cm) Tristen (m/s) Norm Tristen (m/s) Left Peroneal Motor (Ext Dig Brev) dispsersed, multilobar Ankle 6.1 <6.31 0.3 >1.99 8.91 Ankle Ext Dig Brev 6.1 10.0 16 B Fib 12.2 0.4 >1.99 9.22 B Fib Ankle 6.1 23.0 38 >38.9 Right Peroneal Motor (Ext Dig Brev) dispersed Ankle 7.3 <6.31 0.9 >1.99 10.16 Ankle Ext Dig Brev 7.3 10.0 14 B Fib 13.3 0.8 >1.99 10.47 B Fib Ankle 6.0 22.0 37 >38.9 Left Peroneal TA Motor (Tib Ant) dispersed Fib Head 4.4 0.5 11.09 Right Peroneal TA Motor (Tib Ant) Fib Head 4.7 0.4 10.94 Left Tibial/Medial Plantar Motor (Abd Grace Brev) Ankle 5.6 <7.51 1.2 >3.99 8.28 Ankle Abd Grace Brev 5.6 10.0 18 Knee 14.7 1.1 >3.99 9.69 Knee Ankle 9.1 32.0 35 >37.9 Right Tibial/Medial Plantar Motor (Abd Grace Brev) dispsersed, multilobar Ankle 6.4 <7.51 2.5 >3.99 4.22 Ankle Abd Grace Brev 6.4 10.0 16 Knee 14.8 2.7 >3.99 10.94 Knee Ankle 8.4 31.0 37 >37.9 F Wave Studies NR F-Lat (ms) Lat Norm (ms) L-R F-Lat (ms) Left Peroneal F-Wave (EDB) NR <55.41 Right Peroneal F-Wave (EDB) 40.00 <55.41 H Reflex Studies NR H-Lat (ms) Lat Norm (ms) L-R H-Lat (ms) Left Tibial H-Reflex (Gastroc) 33.58 31.91 0.00 Right Tibial H-Reflex (Gastroc) 33.58 31.91 0.00 EMG Side Muscle Nerve Root Ins Act Fib/ Pos Fasc Other Atrophy Amp Dur Poly Recr Pat Int Pat Comment Right Ext Dig Brev Dp Br Peron L5, S1 0 0 0 0 3+ N 1+ 0 2- N Right Tibialis Ant Dp Br Peron L4-5 0 0 0 0 0 N N Serr N N Right Peroneus Long Sup Br Peron L5-S1 0 0 0 0 0 N N 0 N N Right Abd Hallucis MedPlantar S1-2 0 0 0 0 0 1- 2+ 0 N 1- Right Gastroc Med Tibial S1-2 0 0 0 0 0 N N 0 N N Right Vastus Lat Femoral L2-4 0 0 0 0 0 N N Serr N N Right Biceps Fem SH Sciatic L5-S1 0 0 0 0 0 N N 0 N N Right Biceps Fem LH Sciatic L5-S2 0 0 0 0 0 N N 0 N N Right L5-S1 Parasp L5-S1 0 0 0 0 0 Right L3-L4 Parasp L3-L4 0 0 0 0 0 Right L1-L2 Parasp L1-L2 0 0 0 0 0 Left Ext Dig Brev Dp Br Peron L5, S1 0 0 0 0 2+ N 2+ 0 1- 1- Left Tibialis Ant Dp Br Peron L4-5 0 0 0 0 0 N N Serr N N Left Peroneus Long Sup Br Peron L5-S1 0 0 0 0 0 N N 0 N N Left Abd Hallucis MedPlantar S1-2 0 0 0 0 0 2- 2+ 0 N 2- Left Gastroc Med Tibial S1-2 0 0 0 0 0 N N 0 N N Left Vastus Lat Femoral L2-4 0 0 0 0 0 2- 2- 0 2- Discr Left Vastus Med Femoral L2-4 0 0 0 0 0 3- 3+ 0 N Discr Left Iliopsoas Femoral L2-3 0 0 0 0 0 N N 0 1- N Left Add Efrain 0 0 0 0 0 N N Serr N N Left Biceps Fem LH Sciatic L5-S2 0 0 0 0 0 N N 0 N N Left Biceps Fem SH Sciatic L5-S1 0 0 0 0 0 N N 0 N N Left L5-S1 Parasp L5-S1 0 0 0 0 0 Left L3-L4 Parasp L3-L4 0 0 0 0 0 Left L1-L2 Parasp L1-L2 0 0 0 0 0 Abbreviations: Atrop=atrophy; CRD=complex repetitive discharge; Discr=discrete; Doub=doublet; Fasc=fasciculation; FFE=full for effort; Fib=fibrillation; Myokym=myokymia; [place]=myotonic potential; N,0=normal; NR=no response; Polyph=polyphasia; Pos=positive [sharp] wave; RFU=rapidly firing units; Serr=serrated potential (2<phases<5); W&W=waxing and waning pattern INTERPRETATION: This study reveals [facility] evidence of a chronic, neuropathic, axonal, sensorimotor process affecting the L femoral nerve at the inguinal ligament, consistent with a focal compressive lesion, of quite severe degree by electrical criteria. A more proximal lesion in the lumbar plexus is less likely given the relative normality of findings in the iliopsoas muscle. There is also indication of a chronic, axonal, sensorimotor process affecting all lower extremity nerves, with a [id number]-zjrkoevt gradient on needle EMG most suggestive of peripheral neuropathy. This is of mild degree by electrical criteria and remarkable for the relative preservation of sensory potentials. There is no suggestion by this study of myopathy, mononeuropathy, nor of more proximal processes e.g. plexopathy or radiculopathy. Abdiaziz Thomas M.D. Diplomate, [place] [employer] Psychiatry and Neurology (neurology, epilepsy, sleep medicine) Diplomate, [place] Board of Clinical Neurophysiology Diplomate, [place] Board of Preventive Medicine (clinical informatics) . documented in this encounter [facility] 12-15-2024 Telephone encounter Note Called [employer] @ [phone] passcode [phone] spoke to [facility] patient is active .00 deductible has been met. 3200.00 OOP has 63.04 remaining. 131.08 applied to 20% co-ins. Covered at 100% after OOP has been met. REF #[id number] Patient has Medicare 2ndry which should hot die picker. [facility] 12-15-2024 Miscellaneous Notes Called [employer] @ [phone] passcode [phone] spoke to [facility] patient is active 00.00 deductible has been met. 3200.00 OOP has 63.04 remaining. 131.08 applied to 20% co-ins. Covered at 100% after OOP has been met. REF #[id number] Patient has Medicare 2ndry which should hot die picker. documented in this encounter [facility] 12-11-2024 Telephone encounter Note Sister called and canceled BLE appt on 12/12/24 patient in hospital. RS for 12/19/24 [facility] 12-11-2024 Miscellaneous Notes Sister called and canceled BLE appt on 12/12/24 patient in hospital. RS for 12/19/24 documented in this encounter [facility] 11-20-2024 History of Present illness Narrative Associated [...] referral to Neurology documented in this encounter [facility] 10-09-2024 History of Present illness [...] or standing. Has to use arms to hot die picker left leg and starting to fall. To [...] PRN. Relevant Orders Basic metabolic panel Dyslipidemia (CMS/HCC) Relevant Orders Lipid panel Type 2 diabetes [...] Hepatic function panel documented in this encounter [facility] 08-28-2024 History of Present illness Narrative Associated Problem(s): COPD (chronic obstructive pulmonary disease) ([facility]) Increased SOB and use albuterol PRN. Associated [...] chest 2 views documented in this encounter [facility] 07-17-2024 History of Present illness Narrative Associated Problem(s): Pneumonia due to infectious organism Recent infection and improved. Monitor. Associated Problem(s): Pleurisy Severe pain and complete steroids. Use heat to chest wall. Use ultram PRN. Associated Problem(s): COPD with acute exacerbation ([facility]) Recently treated and complete steroids. Use albuterol [...] 50 MG tablet documented in this encounter [facility] 06-26-2024 History of Present illness [...] 69 y.o. female who presents for Follow-up ([facility] hospital f/up/sick). Hospital follow up from [...] ER for evaluation. documented in this encounter [facility] 05-12-2024 Note Patient Education Urology [...] including vitamins, herbs, eye drops, creams, and kikx-oug-faykdgs medicines. ??? Any problems you or family [...] your provider tells you to. ??? Taking ryoy-mzl-snvbuee medicines, vitamins, herbs, and supplements. General instructions [...] these instructions at home: Medicines ??? Take fuvs-aur-gqcyetw and prescription medicines only as told by [...] to prevent or treat constipation: ? Take ouvp-dqz-pxpavhh or prescription medicines. ? Eat foods that [...] soft tube (catheter) (more content not included)... [facility] 01-07-2024 Note OR Cardiology - [facility] Subjective Lise Canales is a 68 y.o. year old female patient being seen for 6 mo follow up CAD and hypertension. She was admitted to [facility] 2 weeks ago for severe [...] Prior additional history: She was admitted to [facility] in 10/2017 with sudden onset [...] smoking. On 06/04/2023 she was admitted to [facility] transferred from the [facility] due to pneumonia. In that setting she was found to have minimally elevated troponin. Her echocardiogram and EKG were nonrevealing. She was discharged on medical therapy. In December 2023 she was admitted to the [facility] with pneumonia and sepsis. In that setting [...] respiratory distress. Breath (more content not included)... [facility] 06-27-2023 Note OR Cardiology - [facility] Subjective Lise Easton Covert is a 68 y.o. year old female patient being seen for follow up [facility] for NSTEMI. 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 On 06/04/2023 she was admitted to [facility] transferred from the [facility] due to pneumonia. In that setting she [...] Judgment normal. All (more content not included)... [facility] 06-26-[address] [facility] 06-06-2023 Note Hospital Medicine Discharge Summary Final Discharge Diagnosis: Community acquired pneumonia of right lower lobe of lung Admission Diagnosis: NSTEMI (non-ST elevated myocardial infarction) (CMS/HCC) [I21.4] Hospital course: 68 years old female lady with a medical history of hypertension, hyperlipidemia, gastroesophageal reflux disease, carotid disease, fibromyalgia, arthritis, polymyalgia rheumatica, COPD, temporal arteritis, and psoriasis. Came into the [facility] ER as a transfer from [facility] for concern of chest pain and non-STEMI. [...] Center 06/27/2023 3:45 PM Jer Neff MD [facility] Your medication list START [...] by mouth at bedtime. cholecalciferol 50 MCG (1999 UT) tablet Commonly known as: Vitamin D-[address] capsule Commonly known as: Cymbalta eszopiclone 3 mg tablet Commonly known as: Lunesta fluticasone furoate-vilanteroL 200-25 mcg/dose inhaler Commonly known as: Breo Ellipta Inhale 1 puff in the morning. glipiZIDE 5 mg tablet Commonly known as: Glucotrol HYDROcodone-acetaminophen 5-325 mg tablet Commonly known as: [place] melatonin 5 mg tablet metoprolol tartrate 25 [...] Your Medications These medications were sent to [id number] - [address] AT [address] [id number] cefdinir 300 mg capsule doxycycline 100 mg [...] rhythm. Lungs: C (more content not included)... 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 Yes Does the patient have a ed case manager assigned to them through their [...] link and activate MyChart? MyChart already active [facility] 06-05-2023 Note . Hospital Medicine History and Physical 06/05/2023 1:22 AM THE HOSPITALIST TEAM PREFERS TO USE [employer] FOR COMMUNICATION 7AM-7PM. IF I DO NOT RESPOND WITHIN 15 MINUTES, PLEASE PAGE ME/CALL THROUGH THE TRAILER TECHNICIAN. FROM 7PM-7AM, PLEASE PAGE [phone](COVR) Chief Complaint No chief complaint on file. History of Present Illness Lise Zamudiot is an 68 y.o. female who came from home with NSTEMi. This is a 68 years old female lady with a medical history of hypertension, hyperlipidemia, gastroesophageal reflux disease, carotid disease, fibromyalgia, arthritis, polymyalgia rheumatica, COPD, temporal arteritis, and psoriasis. Came into the [facility] ER as a transfer from [facility] for concern of chest pain and non-STEMI. [...] Date Noted NSTEMI (non-ST elevated myocardial infarction) ([facility]) 06/05/2023 Acute on chronic respiratory failure with hypoxia ([facility]) 04/01/2022 Anemia, unspecified 04/01/2022 Recurrent spontaneous pneumothorax 03/30/2022 Giant cell arteritis with polymyalgia rheumatica ([facility]) 10/11/2021 Pneumothorax on left 08/02/2016 Coronary atherosclerosis 06/15/2014 Dyslipidemia 06/15/2014 Status post percutaneous transluminal coronary angioplasty 06/15/2014 Angina pectoris ([facility]) 05/04/2014 Electrocardiogram abnormal 05/04/2014 Abdominal pain 04/24/2014 Altered mental status 04/24/2014 Benign essential hypertension 04/24/2014 Congestive heart failure ([facility]) 04/24/2014 Dyspnea 04/24/2014 Gastroesophageal reflux disease 04/24/2014 History of psychiatric disorder 04/24/2014 Hyperlipidemia 04/24/2014 Headache 04/24/2014 Raynaud's disease 04/24/2014 Other and unspecified noninfectious gastroenteritis and colitis(558.9) 05/15/2007 Candidiasis of mouth 04/17/2007 COPD (chronic obstructive pulmonary disease) ([facility]) 04/17/2007 Diarrhea 04/17/2007 Loss of weight 04/17/2007 Other psoriasis 04/17/2007 Psoriatic arthropathy ([facility]) 04/17/2007 Other pneumothorax 03/30/2022 Assessment [...] over 92 -Scheduled (more content not included)... [facility] 03-15-2022 Note MR#: [id number] I [facility] Pt. Name: Lise Canales Admitted: [...] a 66-year-old female, who presented to the [facility] with shortness of breath and fatigue, past [...] The patient was subsequently transferred to for [facility] for further workup, was [...] Penn MD Date Trans: 03/15/2022 04:48 P/gabriela [id number] cc: Erasto Burroughs M.D. [address] [facility] [address] [facility] 03-13-2022 Note MR#: [id number] I [facility] Pt. Name: Lise Canales Admitted: [...] Pineda MD Date Trans: 03/13/2022 10:30 A/gabriela [id number] cc: Erasto Burroughs M.D. [address] [facility] [address] [facility] 03-09-2022 Note MR#: [id number] I [facility] Pt. Name: Lise Canales Admitted: [...] gastritis, Helicobacter pylori infection, who presented to [facility] Emergency Department complaining of [...] appointment with the primary care provider through [facility] for close followup for her anxiety [...] 2 to 4 weeks. Follow up at [facility] on 03/16/2022 at 9:50 a.m. MEDICATIONS [...] from me. Date Dict: 03/08/2022/03:04 P/Paulette Mccord TREATMENT COUNSELOR Date Trans: 03/09/2022 11:21 A/gabriela [id number] cc: Marti Poole M.D. [address] [facility] [address] Erasto Burroughs M.D. [address] [facility] [address] [facility] Evaluation note No assessment inform ation available [facility] Work Phone: Evaluation note Diagnosis DDD (degenerative disc disease), lumbar- Primary Degeneration of lumbar or lumbosacral intervertebral disc documented in this encounter [facility]* Diagnosis Hospital discharge follow-up- [...] lumbosacral intervertebral disc documented in this encounter [facility]* Diagnosis Type 2 diabetes mellitus with hyperglycemia, without long-term current use of insulin (CMS/HCC)- Primary documented in this encounter [facility]* Diagnosis Hospital discharge follow-up- Primary Other follow-up examination Hyponatremia Hyposmolality and/or hyponatremia Pyelonephritis- Primary Unspecified pyelonephritis Type 2 diabetes mellitus with hyperglycemia, without long-term current use of insulin ([facility]/HCC) Essential hypertension, benign (CMS/HCC) Essential hypertension, benign Breast cancer screening by mammogram Chronic obstructive pulmonary disease, unspecified COPD type (CMS/HCC) Dehydration- Primary Fever, unspecified fever cause COPD with acute exacerbation (CMS/HCC) documented in this encounter [facility]* Diagnosis Hospital discharge follow-up- Primary Other follow-up examination Hyponatremia Hyposmolality and/or hyponatremia Pyelonephritis- Primary Unspecified pyelonephritis Type 2 diabetes mellitus with hyperglycemia, without long-term current use of insulin ([facility]) Essential hypertension, benign (CMS/HCC) Essential hypertension, benign Breast cancer screening by mammogram Chronic obstructive pulmonary disease, unspecified COPD type ([facility]/HCC) Dehydration- Primary Fever, unspecified fever cause COPD with acute exacerbation (CMS/HCC) Pneumonia due to infectious organism, unspecified laterality, unspecified part of lung- Primary COPD with acute exacerbation ([facility]/HCC) Pleurisy Pleurisy without mention of effusion or current tuberculosis documented in this encounter [facility]* Diagnosis Hospital discharge follow-up- Primary Other follow-up examination Hyponatremia Hyposmolality and/or hyponatremia Pyelonephritis- Primary Unspecified pyelonephritis Type 2 diabetes mellitus with hyperglycemia, without long-term current use of insulin ([facility]) Essential hypertension, benign ([facility]/HCC) Essential hypertension, benign Breast cancer screening by mammogram Chronic obstructive pulmonary disease, unspecified COPD type (CMS/HCC) Dehydration- Primary Fever, unspecified fever cause COPD with acute exacerbation ([facility]/HCC) Pneumonia due to infectious organism, unspecified laterality, unspecified part of lung- Primary COPD with acute exacerbation (CMS/HCC) Pleurisy Pleurisy without mention of effusion or current tuberculosis Acute bronchitis due to other specified organisms- Primary Chronic obstructive pulmonary disease, unspecified COPD type (CMS/HCC) documented in this encounter [facility]* Diagnosis Pyelonephritis- Primary Unspecified pyelonephritis [...] of other medications documented in this encounter [facility]* Diagnosis Pyelonephritis- Primary Unspecified pyelonephritis [...] lower extremity pain documented in this encounter [facility]* Diagnosis Pyelonephritis- Primary Unspecified pyelonephritis [...] lumbosacral intervertebral disc documented in this encounter [facility]* Diagnosis Pyelonephritis- Primary Unspecified pyelonephritis [...] lower extremity pain documented in this encounter [facility]* Diagnosis Pyelonephritis- Primary Unspecified pyelonephritis [...] weakness (generalized) documented in this encounter [facility]* Diagnosis Pyelonephritis- Primary Unspecified pyelonephritis Type 2 diabetes mellitus with hyperglycemia, without long-term current use of insulin (HCC) Essential hypertension, benign Essential hypertension, benign Breast cancer screening by mammogram Chronic obstructive pulmonary disease, unspecified COPD type (HCC) Degeneration of intervertebral disc of lumbar region with discogenic back pain and lower extremity pain- Primary Type 2 diabetes mellitus with hyperglycemia, without long-term current use of insulin (HCC) Essential hypertension, benign Essential hypertension, benign Dyslipidemia Other and unspecified hyperlipidemia Encounter for long-term (current) use of medications Encounter for long-term (current) use of other medications Bullous emphysema (HCC)- Primary Degeneration of intervertebral disc of lumbar region with discogenic back pain and lower extremity pain Lumbar radiculopathy Thoracic or lumbosacral neuritis or radiculitis, unspecified Numbness Disturbance of skin sensation Leg pain, left Pain in soft tissues of limb Leg pain, right Pain in soft tissues of limb Bilateral leg weakness Muscle weakness (generalized) Weakness of lower extremity, unspecified laterality- Primary Femoral neuropathy, left Paresthesias Disturbance of skin sensation documented in this encounter [facility]* Diagnosis Pyelonephritis- Primary Unspecified pyelonephritis Type 2 diabetes mellitus with hyperglycemia, without long-term current use of insulin (HCC) Essential hypertension, benign Essential hypertension, benign Breast cancer screening by mammogram Chronic obstructive pulmonary disease, unspecified COPD type (HCC) Degeneration of intervertebral disc of lumbar region with discogenic back pain and lower extremity pain- Primary Type 2 diabetes mellitus with hyperglycemia, without long-term current use of insulin (HCC) Essential hypertension, benign Essential hypertension, benign Dyslipidemia Other and unspecified hyperlipidemia Encounter for long-term (current) use of medications Encounter for long-term (current) use of other medications Bullous emphysema (HCC)- Primary Degeneration of intervertebral disc of lumbar region with discogenic back pain and lower extremity pain Lumbar radiculopathy Thoracic or lumbosacral neuritis or radiculitis, unspecified Numbness Disturbance of skin sensation Leg pain, left Pain in soft tissues of limb Leg pain, right Pain in soft tissues of limb Bilateral leg weakness Muscle weakness (generalized) Degeneration of intervertebral disc of lumbar region with discogenic back pain and lower extremity pain- Primary documented in this encounter [facility] Author Remy Givens [facility] June 26, 2023 2:44pm Note Date/Time June 26, 2023 2:44pm [facility] [address] [place] [address] Gastroenterology H&P Signed Patient: Lise Canales MR#: [id number] : 1955 Acct:[id number] Age/Sex: 68 / F Adm Date: 12/19/2 3 Loc: Room: Type: [facility] Attending Dr: Remy Givens MD Copies to: [...] signed by Remy Givens MD> 06/26/23 1449 [facility] Work Phone: Hospital Discharge instructions Additional [...] problems. -Follow up with PCP. -Office number [phone].[facility] Work Phone: Summary Purpose Family History Relationship Condition Age at Onset Recorded Date/T enrique father Cerebrovascular accident (CVA) Unknown Relationship Condition Age at Onset Recorded Date/T enrique father Cerebrovascular accident (CVA) Unknown father Unknown mother Unknown Advance Directives Advance Directive Response Recorded Date/ Time Advance Directives No November 09, 2017 7:38am Advance Directive Response Recorded Date/ Time Advance Directives No November 09, 2017 8:38am Chief Complaint and Reason for Visit Chief Complaint Esophageal Dysmotili ty Chief Complaint Admit Date Unknown July 08, 2024 8:10am Chief Complaint Admit Date Unknown July 08, 2024 8:10am Unknown July 09, 2024 10 :56am Chief Complaint Admit Date Unknown December 10, 2024 3:00p m Additional Source Comments INFORMATION SOURCE (unrecogn ized section and content) DATE CREATED AUTHOR 04/11/2022 [facility] DATE CREATED AUTHOR AUTHOR'S ORGANIZ ATION 11/04/2022 [facility] DATE CREATED AUTHOR AUTHOR'S ORGANIZ ATION 02/14/2024 [facility] DATE CREATED AUTHOR AUTHOR'S ORGANIZ ATION 11/12/2024 [facility] DATE CREATED AUTHOR AUTHOR'S ORGANIZ ATION 12/16/2024 [facility] DATE CREATED AUTHOR AUTHOR'S ORGANIZ ATION 12/22/2024 [facility] EPIC Care Teams (unrecognized sec tion and content) Team Status: Active Member Role Status Dates Erasto Burroughs MD Primary Care Provider Active Team Status: Inactive Member Role Status Dates Erasto Burroughs MD Primary Care Provider Active Remy Givens MD Attending Provider Active Bioengineer Relationship Specialty Start Date End Date Erasto Burroughs MD PCP - General Family Medicine 07/09/22 Bioengineer Relationship Specialty Start Date End Date Erasto Burroughs MD [address] [place] [address] PCP - General Family Medicine 02/21/24 Bioengineer Relationship Specialty Start Date End Date Erasto Burroughs MD [address] [place] [address] PCP - General Family Medicine 02/21/24 Bioengineer Relationship Specialty Start Date End Date Erasto Burroughs MD [address] [place] [address] PCP - General Family Medicine 02/21/24 Bioengineer Relationship Specialty Start Date End Date Erasto Burroughs MD [address] [place] [address] PCP - General Family Medicine 02/21/24 Bioengineer Relationship Specialty Start Date End Date Erasto Burroughs MD [address] [place] [address] PCP - General Family Medicine 02/21/24 Bioengineer Relationship Specialty Start Date End Date Erasto Burroughs MD [address] [place] [address] PCP - General Family Medicine 02/21/24 Bioengineer Relationship Specialty Start Date End Date Erasto Burroughs MD [address] [place] [address] PCP - General Family Medicine 02/21/24 Bioengineer Relationship Specialty Start Date End Date Erasto Burroughs MD [address] [place] [address] PCP - General Family Medicine 02/21/24 Team [...] July 09, 2024 End: July 09, 2024 Bioengineer Relationship Specialty Start Date End Date Erasto Burroughs MD [address] [place] [address] PCP - General Family Medicine 02/21/24 Bioengineer Relationship Specialty Start Date End Date Erasto Burroughs MD [address] [place] [address] PCP - General Family Medicine 02/21/24 Bioengineer Relationship Specialty Start Date End Date Erasto Burroughs MD [address] [place] [address] PCP - General Family Medicine 02/21/24 Bioengineer Relationship Specialty Start Date End Date Erasto Burroughs MD [address] [place] [address] PCP - General Family Medicine 02/21/24 Bioengineer Relationship Specialty Start Date End Date Erasto Burroughs MD [address] [place] [address] PCP - General Family Medicine 02/21/24 Bioengineer Relationship Specialty Start Date End Date Erasto Burroughs MD [address] [place] [address] PCP - General Family Medicine 02/21/24 Bioengineer Relationship Specialty Start Date End Date Erasto Burroughs MD [address] [place] [address] PCP - General Family Medicine 02/21/24 Bioengineer Relationship Specialty Start Date End Date Erasto Burroughs MD [address] [place] [address] PCP - General Family Medicine 02/21/24 Bioengineer Relationship Specialty Start Date End Date Erasto Burroughs MD [address] [place] [address] PCP - General Family Medicine 02/21/24 Bioengineer Relationship Specialty Start Date End Date Erasto Burroughs MD [address] [place] [address] PCP - General Family Medicine 02/21/24 Bioengineer Relationship Specialty Start Date End Date Erasto Burroughs MD [address] [place] [address] PCP - General Family Medicine 02/21/24 Team Status: Inactive Member Role Status Dates Enmanuel Bond , Attending Provider Active S tart: December 10, 2024 End: December 10, 2024 Bioengineer Relationship Specialty Start Date End Date Erasto Burroughs MD [address] [place] [address] PCP - General Family Medicine 02/21/24 Reason for Visit (unrecogniz ed section and content) Reason Comments Med Refill Reason Comments Follow-up [facility] hospital f/upsic k Reason Comments Hospital Follow-up Reason Comments Follow-up Weak, tired vomiting , congestion Reason Comments Leg Pain Left leg pain down i nto foot Reason Onset Date Comments Med Refill 10/21/2024 Reason Onset Date Comments Med Refill 11/06/2024 Reason Comments Follow-up Er f/up [facility] SO[facility] Reason Onset Date Comments Med Refill 12/25/2024 Goals (unrecognized section and content) Goals may be documented in a n alternate sectionGoals may be documented in an alternate sectionGoals may be documented in an [...] BE BASED ON THE PRIMARY CLINICAL RECORDS. [facility] [employer] [facility]. provides no warranty or guarantee of the accuracy or completeness of information in this document.
[2024-12-28 12:01] LABS: Allen Test POSITIVE (POSITIVE); BIPAP Pressure 14/7; Base Excess ABG -5.6 mmol/L (-2.0-2.0); Fractionated Inspired Oxygen 50 %; HCO3 ABG 22.6 mmol/L (22.0-26.0); O2 Mode BIPAP; Oxygen Saturation ABG 86.9 %; PO2 ABG 63.8 mmHg (80.0-100.0); Puncture Site L RAD
[2024-12-28 12:02] LABS: Minute Volume 15.1; Rate 0
[2024-12-28 12:04] LABS: ABG PCO2 58.3 mmHg (35.0-45.0); pH ABG 7.196 (7.350-7.450)
[2024-12-28 12:04] LABS: Basophils Percent Auto 0.1 % (0.2-2.0); Hematocrit 35.8 % (36.0-48.0); Hemoglobin 11.3 g/dL (12.0-16.0); Immature Granulocytes Abs Auto 0.15 10^3/uL (0.00-0.03); Immature Granulocytes Pct Auto 0.8 % (0.0-0.5); Lymphocytes Absolute Auto 0.4 10^3/uL (1.2-3.8); Lymphocytes Percent Auto 1.9 % (20.5-60.0); Mean Corpuscular HGB Conc 31.6 g/dL (29.9-35.2); Mean Corpuscular Hemoglobin 28.2 pg (26.7-34.0); Mean Corpuscular Volume 89.3 fL (81.0-99.0); Mean Platelet Volume 9.1 fL (9.5-13.5); Monocytes Absolute Auto 0.9 10^3/uL (0.3-0.8); Monocytes Percent Auto 4.8 % (1.7-12.0); Neutrophils Absolute Auto 17.7 10^3/uL (1.4-6.5); Neutrophils Percent Auto 92.4 % (43.0-75.0); Platelet Count 421 10^3/uL (150-450); Red Blood Count 4.01 10^6/uL (4.20-5.40); Red Cell Distribution Width 15.2 % (11.0-15.0); White Blood Count 19.1 10^3/uL (4.0-11.0)
[2024-12-28] MEDS: PIPERACILLIN SODIUM/TAZOBACTAM 3.375 GM in 0.9 % SODIUM CHLORIDE 50 ML IV (12:10)
[2024-12-28] MEDS: VANCOMYCIN HCL IV (12:10)
[2024-12-28] MEDS: SODIUM CHLORIDE 0.9% IV (12:10)
--- NOTE | 2024-12-28 12:18 | ED_ITS ---
HPI - SOB/Dyspnea General Chief Complaint: Shortness of Breath/Dyspnea Stated Complaint: WEAKNESS Time Seen by Provider: 12/28/24 11:31 Source: patient Mode of arrival: ambulance Limitations: no limitations History of Present Illness HPI Narrative: The patient is brought to us by the EMS for respiratory distress she was really provided with the 2 breathing treatment before arrival in addition Solu-Medrol, upon arrival the patient still awake following commands and tachypneic using accessory muscles. She was placed on the BiPAP right away and she was not able to provide us with history The history obtained from the sister who presented to the bedside the patient apparently has been short of breath for a while at least for the last 24 hours, and she had multiple diagnosis of pneumonia over the last few months and the sister does not think that she is getting better Related Data Home Medications ?Medication ?Instructions ?Recorded ?Confirmed albuterol sulfate 90 mcg/actuation 2 puff inhalation Q 4H PRN 12/18/23 12/10/24 aerosol inhaler shortness of breath or wheez ing tiotropium 2.5 mcg-olodaterol 2.5 2 puff inhalation DA CORA 11/10/24 12/10/24 mcg/actuation mist for inhalation (Stiolto Respimat) atorvastatin 40 mg tablet 40 mg PO .QHS 12/10/2412/10 guaifenesin 600 mg tablet, 1,200 mg PO Q12H 12/10/24 0 12/10/24 extended release 12 hr Previous Rx's ?Medication ?Instructions ?Recorded food supplemt, lactose-reduced 1 ea PO BID #0 mL 12/15 0.04 gram-1.05 kcal/mL oral liquid (Ensure Original) gabapentin 300 mg capsule 300 mg PO Q8H #3 caps insulin aspart U-100 100 unit/mL 3 - 28 unit (0.03 - 0 .28 mL) 12/15/24 (3 mL) subcutaneous pen (Novolog subcut ACHS #0 mL FlexPen U-100 Insulin aspart) levofloxacin 750 mg tablet 750 mg PO Q48H #3 tabs 04/02 oxycodone-acetaminophen 5 mg-325 1 tab PO QID PRN mode rate to 12/15/24 mg tablet severe pain #4 tabs prednisone 20 mg tablet 40 mg (2 x 20 mg) PO QD 7 da ys #14 12/15/24 tabs pregabalin 100 mg capsule (Lyrica) 100 mg PO TID #3 ca ps 12/15/24 Allergies Allergy/AdvReac Type Severity Reaction Status Date / Time azithromycin (From Zithromax Allergy Severe Unknown Verified 12/10/24 14:33 Z-Leonardo) Latex, Natural Rubber Allergy Severe Unknown Verified 12/10/24 14:33 Review of Systems ROS Narrative Could not be obtained because of the patient clinical presentation [facility] Medical History Right lower lobe pneumonia ?J18.9 - Pneumonia, unspecified organism (ICD-10) Acute pyelonephritis ?N10 - Acute pyelonephritis (ICD-10) Sepsis ?A41.9 - Sepsis, unspecified organism (ICD-10) Immunosuppressed status ?D84.9 - Immunodeficiency, unspecified (ICD-10) Chronic steroid use Temporal arteritis ?M31.6 - Other giant cell arteritis (ICD-10) CKD stage 3b, GFR 30-44 ml/min ?N18.32 - Chronic kidney disease, stage 3b (ICD-10) Chronic respiratory failure with hypoxia ?J96.11 - Chronic respiratory failure with hypoxia (ICD-10) History of tobacco abuse ?Z87.891 - Personal history of nicotine dependence (ICD-10) CAD (coronary artery disease) ?I25.10 - Atherosclerotic heart disease of [place] coronary artery without angina pectoris (ICD-10) Essential hypertension ?I10 - Essential (primary) hypertension (ICD-10) Type 2 diabetes mellitus with hyperglycemia ?E11.65 - Type 2 diabetes mellitus with hyperglycemia (ICD-10) Polymyalgia rheumatica ?M35.3 - Polymyalgia rheumatica (ICD-10) Non-ST elevated myocardial infarction (non-STEMI) ?I21.4 - Non-ST elevation (NSTEMI) myocardial infarction (ICD-10) Hyperlipidemia ?E78.5 - Hyperlipidemia, unspecified (ICD-10) Hyperglycemia, drug-induced ?R73.9 - Hyperglycemia, unspecified (ICD-10) ?T50.905A - Adverse effect of unspecified drugs, medicaments and biological substances, initial encounter (ICD-10) COPD (chronic obstructive pulmonary disease) ?J44.9 - Chronic obstructive pulmonary disease, unspecified (ICD-10) Depression ?F32.A - Depression, unspecified (ICD-10) Acid reflux ?K21.9 - Gastro-esophageal reflux disease without esophagitis (ICD-10) Nerve pain ?M79.2 - Neuralgia and neuritis, unspecified (ICD-10) Back pain ?M54.9 - Dorsalgia, unspecified (ICD-10) Thoracotomy scar of right chest ?L90.5 - Scar conditions and fibrosis of skin (ICD-10) History of oxygen administration ?Z99.81 - Dependence on supplemental oxygen (ICD-10) UTI (urinary tract infection), bacterial ?N39.0 - Urinary tract infection, site not specified (ICD-10) ?A49.9 - Bacterial infection, unspecified (ICD-10) Urethral stenosis Surgical History Status post bilateral cataract extraction ?Z98.41 - Cataract extraction status, right eye (ICD-10) ?Z98.42 - Cataract extraction status, left eye (ICD-10) 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 [part of] (ICD-10) Stented coronary artery ?Z95.5 - Presence of coronary angioplasty implant and graft (ICD-10) Family History Mother Family history of COPD (chronic obstructive pulmonary disease) Brother Family history of COPD (chronic obstructive pulmonary disease) Father Family history of COPD (chronic obstructive pulmonary disease) Family history of stroke Social History (Updated 12/10/24 @ 18:46 by Lisa Hunt) Within the past year, how often did you have a drink containing alcohol: never Within the past year, how many standard drinks containing alcohol did you have on a typical day: 1 or 2 Within the past year, how often did you have six or more drinks on one occasion: never Total score: 0 Score interpretation: A score less than 3 is consistent with normal alcohol consumption. Smoking status: Former smoker Non-prescribed substance use: cannabis (any form) Non-prescribed substance use details: uses marijuana to help sleep Previous occupational history: disabled Highest level of school completed/degree received: Associate degree: academic program Are you now , , , , never or living with a partner: Little interest or pleasure in doing things: not at all Feeling down, depressed, or hopeless: not at all Feel stressed/tense/nervous/anxious/difficulty sleeping: only a little Do you think of yourself as: straight/heterosexual Gender Identity: female Exam Narrative Exam Narrative: Nurses notes and vital signs reviewed and patient is not hypoxic. General: Cachectic and in apparent dress dress using forward using accessory muscles awake opening her eyes and following commands Skin: Warm, dry, no pallor noted. No rash. Head: Normocephalic, atraumatic. Neck: Supple, non-tender. Eye: Pupils are equal, round and EOMI. No scleral icterus. Cardiovascular: Regular Rate and Rhythm without murmur, gallop or rub. Respiratory: Patient using accessory muscles leaning forward and bilateral expiratory lung wheezes Back: No midline thoracic or lumbar vertebral tenderness. No CVA tenderness Musculoskeletal: normal ROM, no calf or popliteal tenderness, no lower extremity edema/swelling GI: Abdomen is soft, non-distended. Normal bowel sounds. No masses appreciated. No tenderness to palpation. No rebound, guarding, or rigidity noted. Neurological: Alert and following commands and no apparent cranial dysfunction or upper or lower extremity weakness Constitutional Vital Signs, click to edit/add: Last Vital Signs Temp 97.2 F L 12/28/24 11:32 Pulse 106 H 12/28/24 13:00 Resp 35 H 12/28/24 13:00 BP 103/85 12/28/24 13:00 Pulse Ox 100 12/28/24 13:00 O2 Del Method BIPAP 12/28/24 11:40 O2 Flow Rate 15 12/28/24 11:31 FiO2 50 12/28/24 11:58 Course Vital Signs Vital signs: Vital Signs Pulse Oximetry 84 L 12/28/24 11:30 Oxygen Delivery Method Nasal Cannula 12/28/24 11:30 Oxygen Delivery Flow Rate 6 12/28/24 11:30 Temperature 97.2 F L 12/28/24 11:32 Pulse Rate 106 H 12/28/24 13:00 Respiratory Rate 35 H 12/28/24 13:00 Blood Pressure 103/85 12/28/24 13:00 Pulse Oximetry 100 12/28/24 13:00 Oxygen Delivery Method BIPAP 12/28/24 11:40 Oxygen Delivery Flow Rate 15 12/28/24 11:31 Fraction of Inspired Oxygen 50 12/28/24 11:58 MDM - SOB/Dyspnea MDM Narrative Medical decision making narrative: The patient EKG showing sinus rhythm with a heart rate of [address] elevation or depression On arrival the patient was placed on BiPAP 23/10, the patient then had a blood workup showing white blood cell that is elevated around 19 in addition to an x- ray showing an obvious right lower lobe pneumonia pt covered with sepsis 30 cc/kg bolus of normal saline Patient covered with Vanco and Zosyn Chemistry showing chronic kidney disease in addition to the patient elevated troponin around 6000 Patient have a history of coronary artery disease in addition to a stent placement in her LAD in 2022 Upon arrival the patient pH was 7.1 with a PCO2 that is elevated after half an hour on the BiPAP I repeated the ABGs and it was pH is 7.2 and it is improving with the patient less tachypneic and less tachycardic The patient case was discussed with Dr. Sheldon and cardiology service and she requested the patient to be transferred for the critical care team and [facility] and I did speak with team and they accepted the patient with the patient started on aspirin suppository apparently the patient had a history of bleeding when she was on aspirin and Plavix together The patient continue to be on a heparin drip for ACS It was noted that the patient has a temporary discoloration of the toes that improved with the patient being warm with the patient still having posterior tibial pulse and anterior tibial pulse that is palpable on the left side and right foot had good posterior pulse and discolration responding to the patient being warmed which could be Raynaud's phenomena Lab Data Labs: Lab Results 12/28/24 12/28/24 12/28/24 Range/Units 11:46 11:54 13:00 WBC 19.1 H (4.0-11.0) 10^3/uL RBC 4.01 L (4.20-5.40) 10^6/uL Hgb 11.3 L (12.0-16.0) g/dL Hct 35.8 L (36.0-48.0) % MCV 89.3 (81.0-99.0) fL MCH 28.2 (26.7-34.0) pg MCHC 31.6 (29.9-35.2) g/dL RDW 15.2 H (11.0-15.0) % Plt Count 421 (150-450) 10^3/uL MPV 9.1 L (9.5-13.5) fL Neut % (Auto) 92.4 H (43.0-75.0) % Lymph % (Auto) 1.9 L (20.5-60.0) % [place] % (Auto) 4.8 (1.7-12.0) % Eos % (Auto) 0.0 L (0.9-7.0) % Baso % (Auto) 0.1 L (0.2-2.0) % Neut # (Auto) 17.7 H (1.4-6.5) 10^3/uL Lymph # (Auto) 0.4 L (1.2-3.8) 10^3/uL [place] # (Auto) 0.9 H (0.3-0.8) 10^3/uL Eos # (Auto) 0.0 (0.0-0.7) 10^3/uL Baso # (Auto) 0.0 (0.0-0.1) 10^3/uL Abs Immat Gran (auto) 0.15 H (0.00-0.03) 10^3/uL Imm/Tot Granulo (auto) 0.8 H (0.0-0.5) % PT 11.1 (9.0-11.6) sec INR 1.05 APTT 32.1 (22.3-36.2) sec Puncture Site L rad L brach ABG pH 7.196 L* 7.218 L* (7.350-7.450) ABG pCO2 58.3 H* 46.9 H (35.0-45.0) mmHg ABG pO2 63.8 L 247.0 H (80.0-100.0) mmHg ABG HCO3 22.6 19.1 L (22.0-26.0) mmol/L ABG O2 Saturation 86.9 >100.0 % ABG Base Excess -5.6 L -8.7 L (-2.0-2.0) mmol/L Parrish Test Positive Positive (POSITIVE) Minute Volume 15.1 15 FiO2 50 60 % BiPAP 14/7 14/7 Sodium 140 (136-145) mmol/L Potassium 4.8 (3.5-5.1) mmol/L Chloride 101 (98-107) mmol/L Carbon Dioxide 25.7 (21.0-32.0) mmol/L Anion Gap 18.1 BUN 41.0 H (7.0-18.0) mg/dL Creatinine 1.25 H (0.55-1.02) mg/dL Est GFR ( Amer) 52 L (>=60 mL/min/1.73m^2) Est GFR (Non-Af Amer) 43 L (>=60 mL/min/1.73m^2) BUN/Creatinine Ratio 32.8 Glucose 273 H (74-106) mg/dL Lactate 2.1 H* (0.4-2.0) mmol/L Calcium 10.8 H (8.5-10.1) mg/dL Total Bilirubin 0.3 (0.2-1.0) mg/dL AST 261 H (15-37) U/L ALT 196 H (14-59) U/L Alkaline Phosphatase 96 (46-116) U/L Troponin I High Sens 6708.4 H* (4.0-51.3) pg/mL Total Protein 7.4 (6.4-8.2) g/dL Albumin 2.6 L (3.4-5.0) g/dL Globulin 4.8 g/dL Albumin/Globulin Ratio 0.5 Discharge Plan Discharge Chief Complaint: Shortness of Breath/Dyspnea Clinical Impression: Acute hypercapnic respiratory failure, Community acquired pneumonia, COPD exacerbation, Pneumonia, Non-ST elevation [place] (NSTEMI) Patient Disposition: [facility]
[2024-12-28 12:21] LABS: Alanine Aminotransferase 196 U/L (14-59); Albumin Globulin Ratio 0.5; Albumin Level 2.6 g/dL (3.4-5.0); Alkaline Phosphatase 96 U/L (46-116); Anion Gap 18.1; Aspartate Amino Transferase 261 U/L (15-37); BUN Creatinine Ratio 32.8; Bilirubin Total 0.3 mg/dL (0.2-1.0); Calcium 10.8 mg/dL (8.5-10.1); Carbon Dioxide 25.7 mmol/L (21.0-32.0); Chloride 101 mmol/L (98-107); Estimated GFR (African America 52 (>=60 mL/min/1.73m^2); Estimated GFR (Non-African Ame 43 (>=60 mL/min/1.73m^2); Globulin 4.8 g/dL; Glucose 273 mg/dL (74-106); Potassium 4.8 mmol/L (3.5-5.1); Sodium 140 mmol/L (136-145); Total Protein 7.4 g/dL (6.4-8.2)
[2024-12-28 12:26] LABS: INR 1.05; Prothrombin Time 11.1 sec (9.0-11.6)
[2024-12-28 12:29] LABS: Troponin I High Sensitivity 6708.4 pg/mL (4.0-51.3)
[2024-12-28 12:30] LABS: Lactate/Lactic Acid 2.1 mmol/L (0.4-2.0)
[2024-12-28 13:11] LABS: ABG PCO2 46.9 mmHg (35.0-45.0); Allen Test POSITIVE (POSITIVE); Base Excess ABG -8.7 mmol/L (-2.0-2.0); HCO3 ABG 19.1 mmol/L (22.0-26.0); Oxygen Saturation ABG >100.0 %
[2024-12-28 13:12] LABS: BIPAP Pressure 14/7; Fractionated Inspired Oxygen 60 %; Minute Volume 15; O2 Mode BIPAP; Puncture Site L BRACH; Rate 20
[2024-12-28 13:13] LABS: pH ABG 7.218 (7.350-7.450)
[2024-12-28 14:13] LABS: Partial Thromboplastin Time 32.1 sec (22.3-36.2)
[2024-12-28] MEDS: HEPARIN SODIUM (PORCINE) 5,000 UNIT/ML VIAL 2700 UNIT IV (14:30)
[2024-12-28] MEDS: ASPIRIN 300 MG SUPP.RECT PR (14:31)
[2024-12-28] MEDS: HEPARIN SODIUM,PORCINE/D5W 25,000 UNIT/500 ML IV.SOLN 10.668 UNIT IV (14:31)
[2024-12-28 15:08] LABS: Allen Test POSITIVE (POSITIVE); Base Excess ABG -10.8 mmol/L (-2.0-2.0); Liters per Minute 40; O2 Mode BIPAP; Oxygen Saturation ABG 99.6 %
[2024-12-28 15:09] LABS: BIPAP Pressure 16/8; Minute Volume 15.5; Puncture Site L BRACH; Rate 16
[2024-12-28 15:10] LABS: pH ABG 7.216 (7.350-7.450)
[2024-12-28 15:13] LABS: Lactate/Lactic Acid 2.1 mmol/L (0.4-2.0)
[2024-12-28] MEDS: MORPHINE SULFATE 2 MG/ML SYRINGE IV (15:51)
== END 2024-12-28 16:12 | disposition short-term general hospital (02) ==
PROVIDERS: Emergency Provider Emergency Medicine; PCP Family Medicine
DX: I21.4 Non-ST elevation (NSTEMI) myocardial infarction (principal); J96.02 Acute respiratory failure with hypercapnia; J18.9 Pneumonia, unspecified organism; J44.1 Chronic obstructive pulmonary disease with (acute) exacerbation; J44.0 Chronic obstructive pulmonary disease with (acute) lower respiratory infection; I25.10 Atherosclerotic heart disease of native coronary artery without angina pectoris; Z87.01 Personal history of pneumonia (recurrent); Z90.2 Acquired absence of lung [part of]; Z95.5 Presence of coronary angioplasty implant and graft; Z87.891 Personal history of nicotine dependence
CPT/HCPCS: 36415; 36600; 51702; 71045; 80053; 82805; 83605; 84484; 85025; 85610; 85730; 87040; 93005; 94660; 96365; 96366; 96368; 96375; 99285; J1644; J2270; J2543; J3370